=== PATIENT | male | born 1970 | race Caucasian/White ===

== ENCOUNTER 2017-09-23 05:21 | Emergency (ER) | payer OTHER ==
--- OUTSIDE RECORDS SUMMARY | 2017-09-23 05:24 | XMS REPORT | Clinical Summary ---
:1970 Author Organization [facility] Address [address] [place] [address] Phone Care Team Providers Name Role Phone Unavailable Primary Care Provider Unavailable Allergies Active Allergy Reactions Severity Noted Date Comments Beta-Blockers 12/05/2015 Per patient "heart rate (Beta-Adrenergic Blocking drop, lethargic, weak" Agts) Tamsulosin 12/05/2015 "too over power" Butorphanol Tartrate 12/05/2015 "tachycardia" Tramadol 03/20/2016 Tachycardia Current Medications Prescription Sig. Disp. Refills Start Date End Date Status pantoprazole Take 1 tablet (40 30 tablet 0 12/11/2015 Active (PROTONIX) 40 MG mg total) by tablet mouth daily. furosemide (LASIX) Take 20 mg by Active 20 MG tablet mouth daily. potassium chloride Take 20 mEq by Active SA (K-DUR,KLOR-CON) mouth daily . 20 MEQ tablet hydrOXYzine (ATARAX) Take 25 mg by Active 25 MG tablet mouth every night as needed (Sleep). aspirin 81 MG EC Take 1 tablet (81 30 tablet 0 12/11/2015 12/10/2016 tablet mg total) by mouth daily. lisinopril Take 1 tablet 30 tablet 0 12/11/2015 12/10/2016 (PRINIVIL,ZESTRIL) (2.5 mg total) by 2.5 MG tablet mouth daily. metFORMIN Take 1 tablet 60 tablet 0 12/11/2015 12/10/2016 (GLUCOPHAGE) 500 MG (500 mg total) by tablet mouth 2 (two) times daily with breakfast and dinner. clopidogrel (PLAVIX) Take 1 tablet (75 30 tablet 0 12/19/2015 12/18/2016 75 mg tablet mg total) by mouth daily. isosorbide Take 1 tablet (30 30 tablet 1 01/20/2016 01/19/2017 mononitrate (IMDUR) mg total) by 30 MG 24 hr tablet mouth daily. atorvastatin Take 40 mg by 12/11/2015 12/10/2016 (LIPITOR) 80 MG mouth daily. tablet isosorbide Take 1 tablet (30 30 tablet 11 03/31/2016 03/26/2017 mononitrate (IMDUR) mg total) by 30 MG 24 hr tablet mouth daily for 360 days. Active Problems Problem Noted Date Acute chest pain 01/19/2016 Chest pain, unspecified type 12/26/2015 Essential hypertension with goal blood pressure less than 130/80 12/19/2015 GREGORIO on CPAP 12/19/2015 Diastolic dysfunction, Grade 1 12/19/2015 Diabetes mellitus type 2 in obese ([facility]) 12/19/2015 STEMI (ST elevation myocardial infarction) ([facility]) 12/05/2015 Family History Medical History Relation Name Comments Heart disease Father Relation Name Status Comments Father Social History Tobacco Use Types Packs/Day Years Used Date Former Smoker 1 Smokeless Tobacco: Never Used Tobacco Cessation: Counseling Given: Yes Comments: Quit for 1 1/2 years ago Alcohol Use Drinks/Week oz/Week Comments No Sex Assigned at Date Recorded Not on file Last Filed Vital Signs Not on file Plan of Treatment Health Maintenance Due Date Last Done Comments INFLUENZA VACCINE 03/23/2017 Implants Implanted Type Area Permastone Installer Device Expiration Date Model / Identifier Serial / Lot [employer] Implanted: Qty: 1 on 12/05/2015 Results VASCULAR DIAGRAM -SCAN (09/02/2017 2:52 PM)after 09/22/2016
--- OUTSIDE RECORDS SUMMARY | 2017-09-23 05:24 | XMS REPORT | Clinical Summary ---
:1970 Author Organization [facility] Address [address] [place] [address] Care Team Providers Name Role Phone Asked, No Pcp Primary Care Provider Unavailable Allergies Active Allergy Reactions Severity Noted Date Comments Acebutolol Other (See Comments) 07/27/2017 All beta blockers cause bradycardia Atenolol Other (See Comments) 07/27/2017 Bisoprolol Other (See Comments) 07/27/2017 Carvedilol Other (See Comments) 07/27/2017 Meperidine Other (See Comments) 07/27/2017 Patient unsure why documented in mr Trazodone Other (See Comments) 07/27/2017 sweating Tamsulosin Other (See Comments) 07/27/2017 Dilation of eyes and couldn't see Metoprolol Other (See Comments) 07/27/2017 But does take PRN for afib ??? Gabapentin Other (See Comments) 07/27/2017 Flushed and over sedation Propranolol Other (See Comments) 07/27/2017 Quetiapine Other (See Comments) 07/27/2017 akathisia Metaxalone Other (See Comments) 07/27/2017 Flushed and over sedation Butorphanol Tartrate Other (See Comments) 07/27/2017 tachycardia Tramadol Palpitations Low 07/27/2017 Current Medications Prescription Sig. Disp. Refills Start Date End Date Status allopurinol Take 300 mg by Active (ZYLOPRIM) 300 MG mouth daily. tablet aspirin (ECOTRIN) 81 Take 81 mg by Active MG enteric coated mouth daily. tablet atorvastatin Take 40 mg by Active (LIPITOR) 40 MG mouth nightly. tablet clonAZEPAM Take 1 mg by Active (KlonoPIN) 1 MG mouth 2 (two) tablet times a day. docusate sodium Take 100 mg by Active (COLACE) 100 MG mouth 2 (two) capsule times a day. furosemide (LASIX) Take 80 mg by Active 80 mg tablet mouth 2 (two) times a day. HYDROcodone-acetamin Take 1 tablet Active ophen (NORCO) 10-325 by mouth 3 mg per tablet (three) times a day. eplerenone (INSPRA) Take 50 mg by Active 25 MG tablet mouth 2 (two) times a day. clopidogrel (PLAVIX) Take 75 mg by Active 75 mg tablet mouth daily. metOLazone Take 2.5 mg by Active (ZAROXOLYN) 2.5 MG mouth daily as tablet needed. metoprolol tartrate Take 6.25 mg by Active (LOPRESSOR) 25 mg mouth daily as tablet needed (only for afib). nitroglycerin Place 1 spray Active (NITROLINGUAL) 400 under the mcg/spray spray tongue every 5 (five) minutes as needed for chest pain. nitroglycerin Place 0.4 mg Active (NITROSTAT) 0.4 MG under the SL tablet tongue every 5 (five) minutes as needed for chest pain. insulin ASPART Inject 8 Units Active (NovoLOG) 100 under the skin unit/mL injection 3 (three) times a day before meals. pantoprazole Take 40 mg by Active (PROTONIX) 40 MG EC mouth daily. tablet insulin GLARGINE Inject 20 Units Active (LANTUS) 100 unit/mL under the skin injection (vial) nightly. potassium chloride Take 20 mEq by Active (K-DUR,KLOR-CON) 10 mouth 4 (four) MEQ CR tablet times a day. Three tabs QID methocarbamol Take 750 mg by Active (ROBAXIN) 750 MG mouth 2 (two) tablet times a day. ranolazine (RANEXA) Take 500 mg by Active 500 MG 12 hr ER mouth 2 (two) tablet times a day. PARoxetine (PAXIL) Take 30 mg by Discontinued 30 MG tablet mouth every 8 morning. 2 daily PARoxetine (PAXIL) Take 1 tablet 7 tablet 0 07/31/2017 40 MG (40 mg total) 8 tabletIndications: by mouth every Anxiety with morning for 30 Depression days Indications: Anxiety with Depression. desvenlafaxine Take 1 tablet 30 tablet 0 07/31/2017 (PRISTIQ) 50 MG 24 (50 mg total) 8 hr by mouth every tabletIndications: morning for 30 Major Depressive days Disorder Indications: Major Depressive Disorder. Active Problems Problem Noted Date Severe episode of recurrent major depressive disorder, without psychotic 07/27 features Chronic pain syndrome 07/27/2017 Encounters Date Type Specialty Care Team Description 07/27/2017 - Hospital Encounter Psychiatry Melanie Epperson, Severe episode of recurrent major depressive disorder, without psychotic features ( Primary Dx); 07/31/2017 Chronic pain syndrome Bridget Daniel MD after 09/22/2016 Social History Tobacco Use Types Packs/Day Years Used Date Never Assessed Sex Assigned at Date Recorded Not on file Last Filed Vital Signs Vital Sign Reading Time Taken Blood Pressure 125/83 07/31/2017 11:25 AM [employer] Pulse 92 07/31/2017 11:25 AM [employer] Temperature 36.7 C (98.1 F) 07/31/2017 11:25 AM [employer] Respiratory Rate 18 07/31/2017 11:25 AM [employer] Oxygen Saturation 97% 07/31/2017 5:46 AM [employer] Inhaled Oxygen Concentration - - Weight 124 kg (273 lb 9 oz) 07/30/2017 6:34 AM [employer] Height 177.8 cm (5' 10") 07/27/2017 2:16 AM [employer] Body Mass Index 39.25 07/30/2017 6:34 AM [employer] Plan of Treatment Not on file Results POC glucose (07/31/2017 11:31 AM)Only the most recent of18 resultswithin the time period is included. Component Value Ref Range POC glucose 257 (H) 65 - 99 mg/dL Comment: [facility] Notified RN Meter ID: [id number] Service Mechanic: Cas Franklin Specimen Performing Laboratory [facility] DEPARTMENT OF PATHOLOGY AND GENOMIC MEDICINE [address] [place] [id number] ECG 12 lead (07/30/2017 9:06 AM)Only the most recent of2 resultswithin the time period is included. Component Value Ref Range Ventricular rate 78 Atrial rate 78 IL interval 164 QRSD interval 154 QT interval 462 QTC interval 526 P axis 1 7 QRS axis 1 -4 T wave axis 21 EKG impression Normal sinus rhythm-Right bundle branch block-Lateral infarct , age undetermined-Inferior infarct (cited on or before 27-JUL-2017)-Abnormal ECG-In automated comparison with ECG of 27-JUL-2017 08:02,-No significant change was found- Specimen Performing Laboratory [facility] MUSE [address] [place] [id number] Urinalysis screen and microscopy, with reflex to culture (07/28/2017 11:03 AM) Component Value Ref Range Specimen site Clean catch Color, UA Straw Appearance, UA Clear Specific gravity, UA 1.006 1.001 - 1.035 pH, UA 6.0 5.0 - 8.5 Protein, UA Negative Negative Glucose, UA Negative Negative Ketones, UA Negative Negative Bilirubin, UA Negative Negative Blood, UA Negative Negative Nitrite, UA Negative Negative Urobilinogen, UA <2.0 <2.0 Leukocyte esterase, UA Negative Negative WBC, UA None seen 0 - 1 /HPF RBC, UA <1 0 - 1 /HPF Bacteria, UA None seen None seen Yeast, UA None seen Yeast with pseudohyphae, UA None seen Specimen Performing Laboratory Urine [facility] DEPARTMENT OF PATHOLOGY AND GENOMIC MEDICINE [address] [place] [id number] Urine culture (07/28/2017 11:03 AM) Component Value Ref Range Urine culture SEE COMMENTComment: Bacteriuria screen negative. Specimen Performing Laboratory [facility] DEPARTMENT OF PATHOLOGY AND GENOMIC MEDICINE [address] [place] [id number] Estimated GFR (07/28/2017 4:30 AM)Only the most recent of2 resultswithin the time period is included. Component Value Ref Range GFR Non Af Amer 80 mL/min/1.73 m2 GFR Af Amer >90 mL/min/1.73 m2 Comment: Chronic kidney disease: <60 mL/min/1.73m2 Kidney failure: <15 mL/min/1.73m2 The estimated GFR is calculated from the IDMS-traceable Modification of Diet in Renal Disease Equation. The accuracy of the calculation is poor when the creatinine is normal. Calculated values >90 mL/min/1.73m2 are not reported. This equation has not been validated in children (<18 years), women, the elderly (>70 years), or ethnic groups other than Caucasians and Americans. Specimen Performing Laboratory Plasma specimen [facility] DEPARTMENT OF PATHOLOGY AND GENOMIC MEDICINE [address] [place] [id number] Thyroid stimulating hormone (07/28/2017 4:30 AM) Component Value Ref Range TSH 1.10 0.27 - 4.20 uIU/mL Specimen Performing Laboratory Plasma specimen [facility] DEPARTMENT OF PATHOLOGY AND [address] [address] T4, free (07/28/2017 4:30 AM) Component Value Ref Range T4, free 1.1 0.9 - 1.7 ng/dL Specimen Performing Laboratory Plasma specimen [facility] DEPARTMENT PATHOLOGY AND [address] [address] Basic metabolic panel (07/28/2017 4:30 AM)Only the most recent of2 resultswithin the time period is included. Component Value Ref Range Sodium 139 135 - 148 mEq/L Potassium 3.7 3.5 - 5.0 mEq/L Chloride 98 98 - 112 mEq/L CO2 28 24 - 31 mEq/L Anion gap 13 7 - 15 mEq/L Comment: Starting from September , anion gap calculation no longer incorporates potassium. Please note the change. BUN 12 6 - 20 mg/dL Creatinine 1.0 0.7 - 1.2 mg/dL Glucose 149 (H) 65 - 99 mg/dL Calcium 9.5 8.3 - 10.2 mg/dL Specimen Performing Laboratory Plasma specimen [facility] DEPARTMENT PATHOLOGY AND [address] [address] Hemoglobin A1c (07/27/2017 6:20 AM) Component Value Ref Range Hemoglobin A1C 7.5 (H) 4.0 - 5.6 % Comment: HbA1c cutoffs for diagnosing diabetes: 4.0% - 5.6%=normal 5.7% - 6.4%=increased risk for diabetes (prediabetes) >=6.5%=diabetes Goals for glycemic control (ADA 2016) < 7.0%Target for non adults with diabetes. More or less stringent targets may be appropriate for individual patients. <7.5% Target for Children and adolescents with type 1 diabetes. Specimen Performing Laboratory Blood [facility] PATHOLOGY AND [facility] MEDICINE [address] [place] [id number] Hepatic function panel (07/27/2017 6:20 AM) Component Value Ref Range Albumin 3.1 (L) 3.5 - 5.0 g/dL Total bilirubin 0.6 0.0 - 1.2 mg/dL Bilirubin direct <0.2 0.0 - 0.3 mg/dL Alkaline phosphatase 113 40 - 129 U/L Protein 7.7 6.3 - 8.3 g/dL Comment: [place] 4.6-7.0 g/dL 1 week 4.4-7.6 g/dL 7 months-1year5.1-7.3 g/dL 1-2 years5.6-7.5 g/dL >3 years6.0-8.0 g/dL 18-150 6.3-8.3 g/dL ALT 29 5 - 50 U/L AST 31 10 - 50 U/L Specimen Performing Laboratory Plasma specimen [facility] DEPARTMENT OF PATHOLOGY AND GENOMIC MEDICINE [address] [place] [address] Lipid panel (07/27/2017 6:20 AM) Component Value Ref Range Cholesterol 172 <200 mg/dL Triglycerides 242 (H) <150 mg/dL HDL cholesterol 33 (L) >40 mg/dL LDL cholesterol 110 (H)Comment: Result obtained by direct <100 mg/dL LDL measurement Lipid panel interpretation SeeBelow Comment: Total Cholesterol (mg/dL) <200 Desirable [id number] >=240High Triglycerides (mg/dL) <150 Normal [id number] 200-499High >=500Very high HDL Cholesterol (mg/dL) <40Low (male) <40Low (female) LDL Cholesterol (mg/dL) <100 Optimal 100-129Near or above optimal [id number] 160-189High >=190Very high Risk Catergories that modify LDL goals. Risk CatergoriesLDL goal (mg/dL) CHD and CHD risk equivalent<100 (10-year risk >20%) Multiple (2+) risk factors <130 (10-year risk=<20%) 0-1 risk factors <160 (<10-year risk) Defining levels of lipids in metabolic syndrome Triglycerides>=150 mg/dL HDL Cholesterol Men<40 mg/dL Women<40 mg/dL Non-HDL cholesterol is a second target for therapy in persons with high triglycerides (>=200 mg/dL) Specimen Performing Laboratory Plasma specimen [facility] DEPARTMENT OF PATHOLOGY AND GENOMIC MEDICINE [address] [place] [address] after 09/22/2016
[2017-09-23 06:52] LABS: Absolute Lymphocytes (CBC) 2.1 K/uL (0.7-4.9); Absolute Monocytes 0.9 K/uL (0.1-1.3); Absolute Neutrophil 8.2 K/uL (1.8-8.0); Basophils % 0.6 % (0-1.3); Eosinophils % 1.5 % (0-4.4); Hematocrit 41.1 % (39.6-49.0); Lymphocytes % 18.7 % (15.3-44.8); MCH 26.4 pg (27.0-35.0); MCV 78.1 fL (80-100); MPV 7.6 fL (7.6-11.3); Monocytes % 7.5 % (3.3-12.3); RBC Red Blood Cell Count 5.27 M/uL (4.33-5.43)
[2017-09-23 06:58] LABS: Protime INR 0.97
[2017-09-23 07:06] LABS: Bicarbonate 28 mEq/L (21-31); Glucose Level 229 mg/dL (65-120); Potassium 4.7 mEq/L (3.6-5.0); Sodium Level 131 mEq/L (135-145)
[2017-09-23 07:12] LABS: ALT/SGPT 25 IU/L (10-60); AST/SGOT 22 IU/L (10-42); Albumin 3.7 g/dL (3.2-5.5); Alkaline Phosphatase 119 IU/L (42-121); BUN Blood Urea Nitrogen 22 mg/dL (6-20); Bilirubin Direct 0.1 mg/dL (0-0.2); Bilirubin Total 0.6 mg/dL (0.3-1.2); Protein, Total 7.8 g/dL (6.0-8.3)
[2017-09-23 07:14] LABS: Alcohol Serum/Plasma < 10 mg/dl; Salicylates Level < 4.0 mg/dl (<30)
[2017-09-23 07:18] LABS: Barbiturates NEGATIVE; Benzodiazepines NEGATIVE; Cocaine NEGATIVE; METHAMPHETAM NEGATIVE; Opiates NEGATIVE; Phencyclidine NEGATIVE; THC Cannibis NEGATIVE
--- NOTE | 2017-09-23 07:37 | EDPHYS ---
Physician Documentation [facility] Name: Marquis Nelson Age: 47 yrs Sex: Male : 1970 Arrival Date: 09/23/2017 Time: 05:22 Bed 8 Private MD: ED Physician Floyd Urban HPI: 09/23 06:36 This 47 yrs old Male presents to ER via Ambulatory with complaints of Anxiety.cp 06:36 Onset: The symptoms/episode began/occurred this morning. Associated signs and symptoms: cp Pertinent negatives: abdominal pain, chest pain, cough, fever, vomiting. Historical: - Allergies: 05:41 Beta Blockers (sensitive/hypotension); bb 05:41 Demerol; bb 05:41 Flomax; bb 05:41 Neurontin; bb 05:41 Skelaxin; bb 05:41 Stadol; bb 05:41 tramadol; bb - Home Meds: 05:41 allopurinol 300 mg Oral tab 1 tab once daily [Active]; amlodipine 5 mg tab 1 tab once bb daily [Active]; Aspir-81 81 mg Oral TbEC 1 tab once daily [Active]; atorvastatin 40 mg Oral tab 1 tab once daily [Active]; clonazepam 1 mg Oral TbDL 2 times per day [Active]; docusate sodium 100 mg Oral tab 2 times per day [Active]; furosemide 80 mg Oral tab 2 times per day [Active]; Inspra 50 mg Oral tab 1 tab 2 times per day [Active]; Levaquin 500 mg Oral tab once daily [Active]; metolazone 2.5 mg Oral tab [Active]; metoprolol succinate 6.25mg Oral Tb24 [Active]; Nitrostat SL [Active]; Novolog Sub-Q [Active]; pantoprazole Oral [Active]; Plavix 75 mg Oral tab 1 tab once daily [Active]; Potassium Chloride 60MEQ Oral 3 times per day [Active]; Ranexa 500 mg Oral Tb12 2 times per day [Active]; Robaxin Oral [Active]; Suboxone 8-2 mg sublingual film 1 film once daily [Active]; - PMHx: 05:41 AAA; Anemia; Anxiety; Atrial Fib; CHF; GERD; High Cholesterol; Hypertension; Kidney bb stones; Myocardial infarction; R BUNDLE BRANCH BLOCK; Sleep Apnea; - Immunization history:: Adult Immunizations up to date. - Social history:: Smoking status: Patient/guardian denies using tobacco, Patient/guardian denies using alcohol. ROS: 06:40 Constitutional: Negative for body aches, chills, fever, poor PO intake. cp 06:40 Eyes: Negative for injury, pain, redness, and discharge. cp 06:40 ENT: Negative for drainage from ear(s), ear pain, sore throat, difficulty swallowing, difficulty handling secretions. 06:40 Cardiovascular: Negative for chest pain, edema, palpitations. 06:40 Respiratory: Negative for cough, shortness of breath, wheezing. 06:40 Abdomen/GI: Negative for abdominal pain, nausea, vomiting, and diarrhea, constipation, black/tarry stool, rectal bleeding. 06:40 Back: Negative for pain at rest, pain with movement, radiated pain. 06:40 Neuro: Negative for altered mental status, dizziness, headache, seizure activity, syncope, near syncope, weakness. 06:40 Psych: Positive for anxiety, Negative for auditory hallucinations, visual hallucinations, homicidal ideation, suicide gesture, suicidal ideation. 06:40 All other systems are negative. Exam: 06:48 Constitutional: The patient appears in no acute distress, alert, awake, cp non-diaphoretic, non-toxic, well developed, well nourished, obese. 06:48 Head/Face: Normocephalic, atraumatic. Eyes: Pupils equal round and reactive to light, cp extra-ocular motions intact. Lids and lashes normal. Conjunctiva and sclera are non-icteric and not injected. Cornea within normal limits. Periorbital areas with no swelling, redness, or edema. ENT: Nares patent. No nasal discharge, no septal abnormalities noted. Tympanic membranes are normal and external auditory canals are clear. Oropharynx with no redness, swelling, or masses, exudates, or evidence of obstruction, uvula midline. Mucous membranes moist. Neck: Trachea midline, no thyromegaly or masses palpated, and no cervical lymphadenopathy. Supple, full range of motion without nuchal rigidity, or vertebral point tenderness. No Meningismus. Chest/axilla: Normal chest wall appearance and motion. Nontender with no deformity. No lesions are appreciated. 06:48 Cardiovascular: Rate: normal, Rhythm: regular, Pulses: Pulses are 2+ in right radial artery and left radial artery. Edema: is not appreciated, JVD: is not appreciated. 06:48 Respiratory: the patient does not display signs of respiratory distress, Respirations: normal, no use of accessory muscles, no retractions, no splinting, no tachypnea, labored breathing, is not present, Breath sounds: are clear throughout, no decreased breath sounds, no stridor, no wheezing. 06:48 Abdomen/GI: Inspection: obese Bowel sounds: active, all quadrants, Palpation: abdomen is soft and non-tender, in all quadrants, rebound tenderness, is not appreciated, voluntary guarding, is not appreciated, involuntary guarding, is not appreciated. 06:48 Back: pain, is absent, ROM is normal. 06:48 Skin: cellulitis, is not appreciated, no rash present. 06:48 Neuro: Orientation: to person, place \T\ time. Mentation: is normal, Cerebellar function: is grossly normal, Motor: moves all fours, strength is normal, Sensation: is normal. 06:53 ECG was reviewed by the Attending Physician. cp Vital Signs: 05:41 BP 143 / 87; Pulse 84; Resp 20 S; Temp 97.7(O); Pulse Ox 95% on R/A; Weight 129.27 kg bb (R); Height 5 ft. 10 in. (177.80 cm) (R); Pain 0/10; 06:56 BP 131 / 69; Pulse 77; Resp 18 S; Pulse Ox 95% on R/A; Pain 0/10; bb 07:33 BP 126 / 72; Pulse 67; Resp 15; Pulse Ox 100% on R/A; Pain 0/10; hb 05:41 Body Mass Index 40.89 (129.27 kg, 177.80 cm) bb MDM: 06:28 Patient medically screened. cp 07:35 Data reviewed: vital signs, nurses notes, lab test result(s), EKG, and as a result, I cp will discharge patient. 07:35 Test interpretation: by ED physician or midlevel provider: ECG. Counseling: I had a cp detailed discussion with the patient and/or guardian regarding: the historical points, exam findings, and any diagnostic results supporting the discharge/admit diagnosis, lab results, the need for outpatient follow up, a family practitioner. 09/23 06:20 Order name: Acetaminophen; Complete Time: 07:23 cp 09/23 07:34 Interpretation: ACETA < 10.0; Reviewed. cp 09/23 06:20 Order name: Basic Metabolic Panel; Complete Time: 07:15 cp 09/23 07:15 Interpretation: Normal except: NA 131; CL 95; GLUC 229; BUN 22; CRE 1.27; GFR 61. cp 09/23 06:20 Order name: CBC with Diff; Complete Time: 06:57 cp 09/23 06:57 Interpretation: Normal except: WBC 11.4; MCV 78.1; MCH 26.4; RDW 16.1; NEUT A 8.2. cp 04 06:20 Order name: ETOH Level; Complete Time: 07:23 cp 09/23 06:20 Order name: Hepatic Function; Complete Time: 07:15 cp 09/23 07:15 Interpretation: Normal except: GLOB 4.1; A/G 0.9. cp 04 06:20 Order name: PT-INR; Complete Time: 07:15 cp 09/23 06:20 Order name: Ptt, Activated; Complete Time: 07:15 cp 09/23 06:20 Order name: Salicylate; Complete Time: 07:23 cp 09/23 06:20 Order name: Urine Drug Screen; Complete Time: 07:23 cp 09/23 07:24 Interpretation: Reviewed. cp 09/23 06:20 Order name: EKG; Complete Time: 06:20 cp 09/23 06:20 Order name: EKG - Nurse/Tech; Complete Time: 06:53 cp 09/23 06:43 Order name: Urine Dipstick--Ancillary (enter results) em1 09/23 06:20 Order name: IV Saline Lock; Complete Time: 06:53 cp 09/23 06:20 Order name: Labs collected and sent; Complete Time: 06:53 cp 09/23 06:20 Order name: Urine Dipstick-Ancillary (obtain specimen); Complete Time: 06:41 cp EC:53 Rate is 68 beats/min. Rhythm is regular. [place] interval is normal. QRS interval is normal. cp QT interval is normal. T waves are Inverted in leads III, V2, V3. No ST changes noted. Interpreted by me. Reviewed by me. Administered Medications: 07:32 Drug: NS 0.9% 500 ml Route: IV; Rate: bolus; Site: right antecubital; hb 07:32 Drug: Benadryl 25 mg Route: IVP; Site: right antecubital; Disposition: 13:20 Co-signature as Attending Physician, Floyd Urban MD. Disposition: 09/23/17 07:36 Discharged to Home. Impression: Anxiety disorder, unspecified. - Condition is Stable. - Discharge Instructions: Panic Attacks, Generalized Anxiety Disorder. - Prescriptions for Vistaril 50 mg Oral capsule - take 1 capsule by ORAL route 4 times per day As needed as needed for anxiety; 30 capsule. - Medication Reconciliation Form, Thank You Letter, Antibiotic Education, Prescription Opioid Use form. - Follow up: Private Physician; When: Today; Reason: Recheck today's complaints. - Problem is chronic. - Symptoms are unchanged. Signatures: Dispatcher [employer] Linnea Yanez, RN RN Jose Francois PA PA cp Baxter, Heather, NAVJOT MORFIN Floyd Urban MD MD
--- NOTE | 2017-09-23 07:37 | ER ---
Nurse's Notes [facility] Name: Marquis Nelson Age: 47 yrs Sex: Male : 1970 Arrival Date: 09/23/2017 Time: 05:22 Bed 8 Private MD: Diagnosis: Anxiety disorder, unspecified Presentation: 09/23 05:34 Presenting complaint: Patient states: he is having a panic attack since approx 0200 bb this morning, feels edgy, fearful, shaky tried meditation but it didn't work and he is out of his Klonopin. Transition of care: patient was not received from another setting of care. Onset of symptoms was September 23, 2017 at 02:00. Care prior to arrival: None. 05:34 Method Of Arrival: Ambulatory bb 05:34 Acuity: THANH 5 bb Triage Assessment: 05:41 General: Appears in no apparent distress. uncomfortable, obese, Behavior is bb cooperative, anxious. Pain: Denies pain. Neuro: Level of Consciousness is awake, alert, obeys commands, Oriented to person, place, time, situation. Cardiovascular: No deficits noted. Respiratory: Respiratory effort is even, unlabored. Derm: Musculoskeletal: Circulation, motion, and sensation intact. Historical: - Allergies: 05:41 Beta Blockers (sensitive/hypotension); bb 05:41 Demerol; bb 05:41 Flomax; bb 05:41 Neurontin; bb 05:41 Skelaxin; bb 05:41 Stadol; bb 05:41 tramadol; bb - Home Meds: 05:41 allopurinol 300 mg Oral tab 1 tab once daily [Active]; amlodipine 5 mg tab 1 tab once bb daily [Active]; Aspir-81 81 mg Oral TbEC 1 tab once daily [Active]; atorvastatin 40 mg Oral tab 1 tab once daily [Active]; clonazepam 1 mg Oral TbDL 2 times per day [Active]; docusate sodium 100 mg Oral tab 2 times per day [Active]; furosemide 80 mg Oral tab 2 times per day [Active]; Inspra 50 mg Oral tab 1 tab 2 times per day [Active]; Levaquin 500 mg Oral tab once daily [Active]; metolazone 2.5 mg Oral tab [Active]; metoprolol succinate 6.25mg Oral Tb24 [Active]; Nitrostat SL [Active]; Novolog Sub-Q [Active]; pantoprazole Oral [Active]; Plavix 75 mg Oral tab 1 tab once daily [Active]; Potassium Chloride 60MEQ Oral 3 times per day [Active]; Ranexa 500 mg Oral Tb12 2 times per day [Active]; Robaxin Oral [Active]; Suboxone 8-2 mg sublingual film 1 film once daily [Active]; - PMHx: 05:41 AAA; Anemia; Anxiety; Atrial Fib; CHF; GERD; High Cholesterol; Hypertension; Kidney bb stones; Myocardial infarction; R BUNDLE BRANCH BLOCK; Sleep Apnea; - Immunization history:: Adult Immunizations up to date. - Social history:: Smoking status: Patient/guardian denies using tobacco, Patient/guardian denies using alcohol. Screenin:44 Abuse screen: Denies threats or abuse. Nutritional screening: No deficits noted. bb Tuberculosis screening: No symptoms or risk factors identified. Fall Risk None identified. Assessment: 05:30 General: Appears in no apparent distress. comfortable, Behavior is calm, cooperative, aa1 appropriate for age. Pain: Denies pain. Neuro: Level of Consciousness is awake, alert, obeys commands, Oriented to person, place, time, situation, Moves all extremities. Full function Gait is steady, Speech is normal. Neuro: Reports "jittery" feeling and feels anxious. Cardiovascular: Denies chest pain, palpitations. Respiratory: Airway is patent Respiratory effort is even, unlabored, Respiratory pattern is regular, symmetrical. GI: No signs and/or symptoms were reported involving the gastrointestinal system. : No signs and/or symptoms were reported regarding the genitourinary system. EENT: No signs and/or symptoms were reported regarding the EENT system. Derm: Skin is intact, is healthy with good turgor, Skin is pink, warm \\T\\ dry. 06:10 Reassessment: Patient appears in no apparent distress at this time. Patient and/or aa1 family updated on plan of care and expected duration. Pain level reassessed. Patient is alert, oriented x 3, equal unlabored respirations, skin warm/dry/pink. Pt continues to await initial assessment by provider. 06:53 Reassessment: Patient and/or family updated on plan of care and expected duration. Pain bb level reassessed. Patient is alert, oriented x 3, equal unlabored respirations, skin warm/dry/pink. pt resting quietly, no complaints, spouse at bedside. 07:30 Reassessment: Patient appears in no apparent distress at this time. Patient and/or hb family updated on plan of care and expected duration. Pain level reassessed. Patient is alert, oriented x 3, equal unlabored respirations, skin warm/dry/pink. Patient denies pain at this time. Patient states symptoms have improved. Vital Signs: 05:41 BP 143 / 87; Pulse 84; Resp 20 S; Temp 97.7(O); Pulse Ox 95% on R/A; Weight 129.27 kg bb (R); Height 5 ft. 10 in. (177.80 cm) (R); Pain 0/10; 06:56 BP 131 / 69; Pulse 77; Resp 18 S; Pulse Ox 95% on R/A; Pain 0/10; bb 07:33 BP 126 / 72; Pulse 67; Resp 15; Pulse Ox 100% on R/A; Pain 0/10; hb 05:41 Body Mass Index 40.89 (129.27 kg, 177.80 cm) ED Course: 05:22 Patient arrived in ED. es 05:35 Triage completed. bb 05:41 Arm band placed on Patient placed in an exam room, on a stretcher. Family accompanied bb patient. 05:44 Patient has correct armband on for positive identification. Bed in low position. Call bb light in reach. Side rails up X 1. Adult w/ patient. Pulse ox on. NIBP on. 06:28 [facility]. cp 06:28 Floyd Urban MD is Attending Physician. cp 06:30 Urine collected: clean catch specimen, clear. bb 06:40 Initial lab(s) drawn, by nj, sent to lab. Inserted saline lock: 22 gauge in right bb antecubital area, using aseptic technique. Blood collected. 06:52 EKG done, by ED staff, reviewed by Jose MÁRQUEZ. bb 07:06 Report given to Roxann MORFIN. bb 07:50 Roxann Byrnes, RN is Primary Nurse. hb Administered Medications: 07:32 Drug: NS 0.9% 500 ml Route: IV; Rate: bolus; Site: right antecubital; hb 07:32 Drug: Benadryl 25 mg Route: IVP; Site: right antecubital; hb Outcome: 07:36 Discharge ordered by . nikki 08:02 Patient left the ED. hb Signatures: Sussy Benavidez RN RN aa1 Danni Max Brenda RN RN bb Jose Wilson PA PA cp Baxter, Heather, RN RN hb
[2017-09-23] MEDS ORDERED: NA CHLORIDE 0.9% 1,000 ML ONE (07:48)
[2017-09-23] MEDS ORDERED: DIPHENHYDRAMINE 50 MG/ML VIAL ONE (07:48)
[2017-09-23 08:15] VITALS: TEMP 97.7
[2017-09-23 08:16] VITALS: BP 126/72; O2SAT 100
[2017-09-23 09:36] LABS: Urine Blood NEGATIVE (NEG); Urine Glucose NEGATIVE (NEG); Urine Protein NEGATIVE (NEG); Urine Specific Gravity 1.015 (1.005-1.030)
--- NOTE | 2017-09-24 07:39 | EKG ---
Test Date: 2017-09-23 Test Time: 06:48:55 [employer] Workman: WENDY MEASUREMENT RESULTS: Intervals: Rate: 68 AR: 170 QRSD: 144 QT: 418 QTc: 444 [place]: P: 10 AR: 170 QRS: -9 T: 4 INTERPRETIVE STATEMENTS: Normal sinus rhythm Right bundle branch block Inferior infarct, age undetermined Abnormal ECG Compared to ECG 08/21/2017 01:50:56 No significant changes Electronically Signed On 09-24-17 07:35:19 CDT by Ole Tesfaye
== END 2017-09-23 08:02 | disposition home or self-care (01) ==
LOC: ER 05:21
DX: F41.9 Anxiety disorder, unspecified (principal); I10 Essential (primary) hypertension; E78.00 Pure hypercholesterolemia, unspecified; I48.91 Unspecified atrial fibrillation; I25.2 Old myocardial infarction; I50.9 Heart failure, unspecified; Z79.01 Long term (current) use of anticoagulants; Z79.82 Long term (current) use of aspirin; Z88.5 Allergy status to narcotic agent; Z88.6 Allergy status to analgesic agent; Z88.8 Allergy status to other drugs, medicaments and biological substances
CPT/HCPCS: 36415; 80048; 80076; 80307; 80320; 80329; 81003; 85025; 85610; 85730; 93005; 96374; 99284; J7030

== ENCOUNTER 2017-11-29 18:34 | Emergency (ER) | payer OTHER ==
--- OUTSIDE RECORDS SUMMARY | 2017-11-29 18:36 | XMS REPORT | Clinical Summary ---
:1970 Author Organization [facility] Address [address] [place] [address] Care Team Providers Name Role Phone Asked, [...] Chronic pain syndrome Bridget Daniel MD after 11/28/2016 Social History Tobacco Use Types Packs/Day Years Used Date Never Assessed Sex Assigned at Date Recorded Not on file Last Filed Vital Signs Vital Sign Reading Time Taken Blood Pressure 125/83 07/31/2017 11:25 AM [employer] Pulse 92 07/31/2017 11:25 AM [employer] Temperature 36.7 C (98.1 F) 07/31/2017 11:25 AM [employer] Respiratory Rate 18 07/31/2017 11:25 AM [employer] Oxygen Saturation 97% 07/31/2017 5:46 AM [employer] Inhaled Oxygen Concentration - - Weight 124 kg (273 lb 9 oz) 07/30/2017 6:34 AM [employer] Height 177.8 cm (5' 10") 07/27/2017 2:16 AM [employer] Body Mass Index 39.25 07/30/2017 6:34 AM [employer] Plan of Treatment Not on file Results POC glucose (07/31/2017 11:31 AM)Only the most recent of18 resultswithin the time period is included. Component Value Ref Range POC glucose 257 (H) 65 - 99 mg/dL Comment: [facility] Notified RN Meter ID: [id number] Acupuncturist: Cas Franklin Specimen Performing Laboratory [facility] DEPARTMENT OF PATHOLOGY AND GENOMIC MEDICINE [address] [place] [id number] ECG 12 lead (07/30/2017 9:06 AM)Only the most recent of2 resultswithin the time period is included. Component Value Ref Range Ventricular rate 78 Atrial rate 78 NJ interval 164 QRSD interval 154 QT interval 462 QTC interval 526 P axis 1 7 QRS axis 1 -4 T wave axis 21 EKG impression Normal sinus rhythm-Right bundle branch block-Lateral infarct , age undetermined-Inferior infarct (cited on or before 27-JUL-2017)-Abnormal ECG-In automated comparison with ECG of 27-JUL-2017 08:02,-No significant change was found- Specimen Performing Laboratory [facility] MUSE [address] [place] [id number] Urinalysis screen and microscopy, with reflex to [...] UA None seen Specimen Performing Laboratory Urine [facility] DEPARTMENT OF PATHOLOGY AND GENOMIC MEDICINE [address] [place] [id number] Urine culture (07/28/2017 11:03 AM) Component Value Ref Range Urine culture SEE COMMENTComment: Bacteriuria screen negative. Specimen Performing Laboratory [facility] DEPARTMENT OF PATHOLOGY AND GENOMIC MEDICINE [address] [place] [id number] Estimated GFR (07/28/2017 4:30 AM)Only the most [...] and Americans. Specimen Performing Laboratory Plasma specimen [facility] DEPARTMENT OF PATHOLOGY AND GENOMIC MEDICINE [address] [place] [id number] Thyroid stimulating hormone (07/28/2017 4:30 AM) Component Value Ref Range TSH 1.10 0.27 - 4.20 uIU/mL Specimen Performing Laboratory Plasma specimen [facility] DEPARTMENT OF PATHOLOGY AND [address] [address] T4, free (07/28/2017 4:30 AM) Component Value Ref Range T4, free 1.1 0.9 - 1.7 ng/dL Specimen Performing Laboratory Plasma specimen [facility] DEPARTMENT OF PATHOLOGY AND [address] [address] Basic metabolic panel (07/28/2017 4:30 AM)Only the [...] 10.2 mg/dL Specimen Performing Laboratory Plasma specimen [facility] DEPARTMENT OF PATHOLOGY AND [facility] MEDICINE [address] [place] [address] Hemoglobin A1c (07/27/2017 6:20 AM) Component Value [...] type 1 diabetes. Specimen Performing Laboratory Blood [facility] PATHOLOGY AND [address] [address] Hepatic function panel (07/27/2017 6:20 AM) Component Value Ref Range Albumin 3.1 (L) 3.5 - 5.0 g/dL Total bilirubin 0.6 0.0 - 1.2 mg/dL Bilirubin direct <0.2 0.0 - 0.3 mg/dL Alkaline phosphatase 113 40 - 129 U/L Protein 7.7 6.3 - 8.3 g/dL Comment: 4.6-7.0 g/dL 1 week 4.4-7.6 g/dL 7 months-1year5.1-7.3 g/dL 1-2 years5.6-7.5 g/dL >3 years6.0-8.0 g/dL 18-150 6.3-8.3 g/dL ALT 29 5 - 50 U/L AST 31 10 - 50 U/L Specimen Performing Laboratory Plasma specimen [facility] DEPARTMENT OF PATHOLOGY AND GENOMIC MEDICINE [address] [place] [id number] Lipid panel (07/27/2017 6:20 AM) Component Value Ref Range Cholesterol 172 <200 mg/dL Triglycerides 242 (H) <150 mg/dL HDL cholesterol 33 (L) >40 mg/dL LDL cholesterol 110 (H)Comment: Result obtained by direct LDL <100 mg/dL measurement Lipid panel interpretation SeeBelow Comment: Total Cholesterol (mg/dL) <200 Desirable [id number]-pqrp >=240High Triglycerides (mg/dL) <150 Normal [id number]-[id number] 200-499High >=500Very high HDL Cholesterol (mg/dL) <40Low (male) <40Low (female) LDL Cholesterol (mg/dL) <100 Optimal 100-129Near or above optimal [phone]-hmas 160-189High >=190Very high Risk Catergories that modify [...] (>=200 mg/dL) Specimen Performing Laboratory Plasma specimen [facility] DEPARTMENT OF PATHOLOGY AND GENOMIC MEDICINE [address] [place] [address] after 11/28/2016
--- OUTSIDE RECORDS SUMMARY | 2017-11-29 18:36 | XMS REPORT | Clinical Summary ---
:1970 Author Organization [facility] Address [address] [place] [address] Phone Care Team Providers Name Role Phone [...] 12/19/2015 Diabetes mellitus type 2 in obese ([facility]) 12/19/2015 STEMI (ST elevation myocardial infarction) ([facility]) 12/05/2015 Family History Medical History Relation Name [...] Due Date Last Done Comments INFLUENZA VACCINE 03/23/2018 Implants Implanted Type Area Lithographic Stripper Device Expiration Date Model / Identifier Serial / Lot [employer] Implanted: Qty: 1 on 12/05/2015 Results VASCULAR DIAGRAM -SCAN (09/02/2017 2:52 PM)after 11/28/2016
--- NOTE | 2017-11-29 19:27 | RAD REPORT ---
EXAM DESCRIPTION: CT - Stone Protocol - 11/29/2017 7:17 pm CLINICAL HISTORY: Flank pain. COMPARISON: None. TECHNIQUE: Axial images were obtained without oral or IV contrast. Lack of contrast limits solid org an and vascular assessment. The [id number] spans the entirety of the system partially obscuring uppermost abdomen and lung bases. Coronal reformatted images were obtained and reviewed. All CT scans are performed using dose optimization technique as appropriate and may include automated exposure control or mA/KV adjustment according to patient size. FINDINGS: The lower lung pizarro are clear. Imaged portions of the liver and spleen show no suspicious findings on non-contrast imaging. The panc reas and adrenal glands are normal. No pathologic lymphadenopathy in the abdomen or pelvis. Ectasia o f the infrarenal abdominal aorta to 3 mm noted. No urinary tract stones or obstructive uropathy. No bowel obstruction, free air, free fluid or abscess. Normal appendix noted.Mild colonic diverticulo sis. No significant bony abnormality. IMPRESSION: No urinary tract stones or obstructive uropathy.
[2017-11-29] MEDS ORDERED: NA CHLORIDE 0.9% 1,000 ML ONE (19:29)
[2017-11-29 19:46] LABS: Absolute Lymphocytes (CBC) 1.7 K/uL (0.7-4.9); Absolute Monocytes 0.8 K/uL (0.1-1.3); Absolute Neutrophil 8.3 K/uL (1.8-8.0); Basophils % 0.6 % (0-1.3); Eosinophils % 1.4 % (0-4.4); Hematocrit 36.2 % (39.6-49.0); Lymphocytes % 15.2 % (15.3-44.8); MCH 25.8 pg (27.0-35.0); MCV 76.2 fL (80-100); MPV 7.7 fL (7.6-11.3); Monocytes % 7.6 % (3.3-12.3); RBC Red Blood Cell Count 4.75 M/uL (4.33-5.43)
[2017-11-29] MEDS ORDERED: METOCLOPRAMIDE 10 MG/2mL INJ ONE (19:48)
[2017-11-29] MEDS ORDERED: MORPHINE 4 MG/ML SYR ONE (19:48)
[2017-11-29] MEDS ORDERED: DIPHENHYDRAMINE 50 MG/ML VIAL ONE (19:49)
[2017-11-29 20:32] LABS: Urine Blood 2+ (NEG); Urine Glucose NEGATIVE (NEG); Urine Protein NEGATIVE (NEG)
[2017-11-29 20:37] LABS: Urine Bacteria <20 /HPF (NONE SEEN); Urine Culture Reflex Order NOT NEEDED
--- NOTE | 2017-11-29 20:49 | ER ---
Nurse's Notes [facility] Name: Marquis Nelson Age: 47 yrs Sex: Male : 1970 Arrival Date: 11/29/2017 Time: 18:36 Bed 26 Private MD: Diagnosis: Right Flank Pain Presentation: 11/29 18:48 Presenting complaint: Patient states: Right flank pain that radiates to the abdomen for aj1 the past 2 days. Reports nausea, trouble urinating. denies vomiting diarrhea, fever. Transition of care: patient was not received from another setting of care. Onset of symptoms was November 27, 2017. Risk Assessment: Do you want to hurt yourself or someone else? Patient reports no desire to harm self or others. Initial Sepsis Screen: Does the patient meet any 2 criteria? No. Patient's initial sepsis screen is negative. Does the patient have a suspected source of infection?. Care prior to arrival: None. 18:48 Method Of Arrival: Ambulatory aj1 18:48 Acuity: THANH 3 aj1 Triage Assessment: 18:54 General: Appears uncomfortable, Behavior is calm, cooperative, appropriate for age. aj1 Pain: Pain currently is 9 out of 10 on a pain scale. GI: Abdomen is non-distended. 19:00 Neuro: No deficits noted. Level of Consciousness is Oriented to person, place, time, rk2 situation. 19:00 Respiratory: Airway is patent Respiratory effort is even, unlabored, Respiratory rk2 pattern is regular, symmetrical. Derm: Skin is pink, warm \T\ dry. Historical: - Allergies: 18:54 Beta Blockers (sensitive/hypotension); aj1 18:54 Flomax; aj1 18:54 Neurontin; aj1 18:54 Skelaxin; aj1 18:54 Stadol; aj1 18:54 tramadol; aj1 - Home Meds: 18:54 allopurinol 300 mg Oral tab 1 tab once daily [Active]; amlodipine 5 mg tab 1 tab once aj1 daily [Active]; Eliquis 5 mg oral tab 1 tab 2 times per day [Active]; atorvastatin 40 mg Oral tab 1 tab once daily [Active]; clonazepam 1 mg Oral TbDL 2 times per day [Active]; docusate sodium 100 mg Oral tab 2 times per day [Active]; furosemide 80 mg Oral tab 2 times per day [Active]; Inspra 50 mg Oral tab 1 tab 2 times per day [Active]; metolazone 2.5 mg Oral tab as needed [Active]; metoprolol succinate 6.25mg Oral Tb24 as needed [Active]; Nitrostat SL as needed [Active]; Novolog Sub-Q [Active]; pantoprazole Oral [Active]; Plavix 75 mg Oral tab 1 tab once daily [Active]; Potassium Chloride 60MEQ Oral 3 times per day [Active]; Ranexa 1,000 mg oral Tb12 [Active]; Robaxin Oral [Active]; - PMHx: 18:54 AAA; Anemia; Anxiety; Atrial Fib; CHF; GERD; High Cholesterol; Hypertension; Kidney aj1 stones; Myocardial infarction; R BUNDLE BRANCH BLOCK; Sleep Apnea; pulmonary embolism; - PSHx: 18:54 Hernia repair; aj1 - Immunization history:: Adult Immunizations up to date. - Social history:: Smoking status: Patient/guardian denies using tobacco. - Ebola Screening: : Patient denies travel to an Ebola-affected area in the 21 days before illness onset. Screenin:00 Abuse screen: Denies threats or abuse. rk2 19:00 Nutritional screening: No deficits noted. Tuberculosis screening: No symptoms or risk rk2 factors identified. Fall Risk None identified. Assessment: 21:04 GI: Bowel sounds rk2 Vital Signs: 18:54 BP 109 / 86; Pulse 81; Resp 18; Temp 98.2; Pulse Ox 95% on R/A; Weight 131.54 kg (R); aj1 Height 5 ft. 10 in. (177.80 cm); Pain 9/10; 20:30 BP 107 / 53; Pulse 94; Resp 17; Pulse Ox 95% on R/A; rk2 18:54 Body Mass Index 41.61 (131.54 kg, 177.80 cm) aj1 ED Course: 18:36 Patient arrived in ED. rg4 18:50 Triage completed. aj1 18:54 Arm band placed on Patient placed in an exam room. aj1 19:00 Patient has correct armband on for positive identification. Bed in low position. Call rk2 light in reach. 19:17 CT Stone Protocol In Process Unspecified. EDMS 19:17 CT completed. Patient moved to CT via wheelchair. Patient moved back from CT. cw1 19:18 Yoav Person PA is PHCP. [facility] 19:18 Nawaf Calvin MD is Attending Physician. [facility] 19:21 Isela Sen, RN is Primary Nurse. kr2 21:06 No provider procedures requiring assistance completed. IV discontinued. rk2 Administered Medications: 19:51 Drug: diphenhydrAMINE 12.5 mg Route: IVP; Site: right antecubital; rk2 21:07 Follow up: Response: No adverse reaction rk2 19:51 Drug: Reglan 10 mg Route: IVP; Site: right antecubital; rk2 21:07 Follow up: Response: No adverse reaction rk2 19:52 Drug: NS 0.9% 1000 ml Route: IV; Rate: 125 ml/hr; Site: right antecubital; rk2 20:47 Follow up: Response: No adverse reaction; IV Status: Order to discontinue infusion rk2 19:52 Drug: morphine 4 mg Route: IVP; Site: right antecubital; rk2 21:07 Follow up: Response: No adverse reaction rk2 Outcome: 20:49 Discharge ordered by . [facility] 21:06 Discharged to home ambulatory. rk2 21:06 Condition: good 21:06 Discharge instructions given to patient. 21:06 Patient left the ED. rk2 Signatures: Dispatcher [employer] EDMS Cailin Guillermo, NAVJOT RN aj1 Yoav Person PA PA jmm Woodley, Crystal cw1 Daphney Talavera rg4 Isela Sen, RN RN kr2 Deysi Marroquin RN RN rk2
--- NOTE | 2017-11-29 20:49 | EDPHYS ---
Physician Documentation [facility] Name: Marquis Nelson Age: 47 yrs Sex: Male : 1970 Arrival Date: 11/29/2017 Time: 18:36 Bed 26 Private MD: ED Physician Nawaf Calvin HPI: 11/29 19:28 This 47 yrs old Male presents to ER via Ambulatory with complaints of jmm Possible Kidney Stone. 19:28 The patient complains of pain in the right flank. The pain radiates to the abdomen. jmm Onset: The symptoms/episode began/occurred gradually, 2 day(s) ago. Modifying factors: The symptoms are alleviated by nothing. the symptoms are aggravated by nothing. Associated signs and symptoms: Pertinent positives: nausea. This is a 47 year old male with a history of CAD, CHF that presents to the ED with right flank pain and nausea. Patient states this is similar to previous kidney stones. The patient is currently taking eliquis for a PE. Patient denies fever. . Historical: - Allergies: 18:54 Beta Blockers (sensitive/hypotension); aj1 18:54 Flomax; aj1 18:54 Neurontin; aj1 18:54 Skelaxin; aj1 18:54 Stadol; aj1 18:54 tramadol; aj1 - Home Meds: 18:54 allopurinol 300 mg Oral tab 1 tab once daily [Active]; amlodipine 5 mg tab 1 tab once aj1 daily [Active]; Eliquis 5 mg oral tab 1 tab 2 times per day [Active]; atorvastatin 40 mg Oral tab 1 tab once daily [Active]; clonazepam 1 mg Oral TbDL 2 times per day [Active]; docusate sodium 100 mg Oral tab 2 times per day [Active]; furosemide 80 mg Oral tab 2 times per day [Active]; Inspra 50 mg Oral tab 1 tab 2 times per day [Active]; metolazone 2.5 mg Oral tab as needed [Active]; metoprolol succinate 6.25mg Oral Tb24 as needed [Active]; Nitrostat SL as needed [Active]; Novolog Sub-Q [Active]; pantoprazole Oral [Active]; Plavix 75 mg Oral tab 1 tab once daily [Active]; Potassium Chloride 60MEQ Oral 3 times per day [Active]; Ranexa 1,000 mg oral Tb12 [Active]; Robaxin Oral [Active]; - PMHx: 18:54 AAA; Anemia; Anxiety; Atrial Fib; CHF; GERD; High Cholesterol; Hypertension; Kidney aj1 stones; Myocardial infarction; R BUNDLE BRANCH BLOCK; Sleep Apnea; pulmonary embolism; - PSHx: 18:54 Hernia repair; aj1 - Immunization history:: Adult Immunizations up to date. - Social history:: Smoking status: Patient/guardian denies using tobacco. - Ebola Screening: : Patient denies travel to an Ebola-affected area in the 21 days before illness onset. ROS: 19:28 Constitutional: Negative for fever, chills, and weight loss, Cardiovascular: Negative jmm for chest pain, palpitations, and edema, Respiratory: Negative for shortness of breath, cough, wheezing, and pleuritic chest pain. 19:28 MS/Extremity: Negative for injury and deformity. 19:28 Back: Positive for flank pain. 19:28 Skin: Negative for rash. 19:28 Neuro: Negative for weakness. 19:28 All other systems are negative. Exam: 19:28 Head/Face: atraumatic. Chest/axilla: Normal chest wall appearance and motion. jmm Nontender with no deformity. No lesions are appreciated. Cardiovascular: Regular rate and rhythm. No gallops, murmurs, or rubs. Full/Equal distal pulses. Respiratory: Lungs have equal breath sounds bilaterally, clear to auscultation. No rales, rhonchi or wheezes noted. No increased work of breathing, no retractions or nasal flaring. Abdomen/GI: Soft, non-tender, with normal bowel sounds. No distension or tympany. No guarding or rebound. No evidence of tenderness throughout. 19:28 Constitutional: The patient appears in no acute distress, alert, awake. 19:28 Back: CVA tenderness, that is mild, is noted on the right. 19:28 Musculoskeletal/extremity: ROM: intact in all extremities. 19:28 Skin: Appearance: Color: normal in color. 19:28 Neuro: Orientation: is normal, Mentation: is normal, Memory: is normal, Gait: is steady. 19:28 Psych: Behavior/mood is pleasant, cooperative. Vital Signs: 18:54 BP 109 / 86; Pulse 81; Resp 18; Temp 98.2; Pulse Ox 95% on R/A; Weight 131.54 kg (R); aj1 Height 5 ft. 10 in. (177.80 cm); Pain 9/10; 20:30 BP 107 / 53; Pulse 94; Resp 17; Pulse Ox 95% on R/A; rk2 18:54 Body Mass Index 41.61 (131.54 kg, 177.80 cm) aj1 MDM: 19:27 Patient medically screened. [facility] 19:28 Data reviewed: vital signs, nurses notes. [facility] 20:59 Data reviewed: lab test result(s), radiologic studies, CT scan. [facility] 20:59 Counseling: I had a detailed discussion with the patient and/or guardian regarding: the [facility] historical points, exam findings, and any diagnostic results supporting the discharge/admit diagnosis. Response to treatment: the patient's symptoms have markedly improved after treatment. 11/29 19:05 Order name: Amylase, Serum; Complete Time: 20:59 [facility] 11/29 19:05 Order name: Basic Metabolic Panel; Complete Time: 20:59 [facility] 11/29 19:05 Order name: CBC with Diff; Complete Time: 19:49 [facility] 11/29 19:05 Order name: Creatinine for Radiology; Complete Time: 20:04 [facility] 11/29 19:05 Order name: Hepatic Function; Complete Time: 20:59 [facility] 11/29 19:05 Order name: Lipase; Complete Time: 20:59 [facility] 11/29 19:05 Order name: Urine Microscopic Only; Complete Time: 20:59 [facility] 11/29 19:05 Order name: CT Stone Protocol; Complete Time: 19:31 [facility] 11/29 19:05 Order name: Urine Culture [facility] 11/29 19:22 Order name: Urine Dipstick--Ancillary (enter results); Complete Time: 20:37 [facility] 11/29 19:05 Order name: IV Saline Lock; Complete Time: 19:32 [facility] 11/29 19:05 Order name: Labs collected and sent; Complete Time: 19:32 [facility] 11/29 19:05 Order name: Urine Dipstick-Ancillary (obtain specimen); Complete Time: 19:32 [facility] Administered Medications: 19:51 Drug: diphenhydrAMINE 12.5 mg Route: IVP; Site: right antecubital; rk2 21:07 Follow up: Response: No adverse reaction rk2 19:51 Drug: Reglan 10 mg Route: IVP; Site: right antecubital; rk2 21:07 Follow up: Response: No adverse reaction rk2 19:52 Drug: NS 0.9% 1000 ml Route: IV; Rate: 125 ml/hr; Site: right antecubital; rk2 20:47 Follow up: Response: No adverse reaction; IV Status: Order to discontinue infusion rk2 19:52 Drug: morphine 4 mg Route: IVP; Site: right antecubital; rk2 21:07 Follow up: Response: No adverse reaction rk2 Disposition: 23:26 Co-signature as Attending Physician, Nawaf Calvin MD. rn Disposition: 11/29/17 20:49 Discharged to Home. Impression: Right Flank Pain. - Condition is Stable. - Discharge Instructions: Flank Pain. - Medication Reconciliation Form, Thank You Letter, Antibiotic Education, Prescription Opioid Use form. - Follow up: Private Physician; When: 2 - 3 days; Reason: Continuance of care. - Notes: Please follow up with urology for further evaluation of your flank pain. Please return to the ED if you develop fever, vomiting. Signatures: Dispatcher [employer] EDMS Cailin Guillermo RN RN aj1 Jose Nolasco MD MD cha Mickail, Joel, PA PA Nawaf Ng MD MD rn Kidder, Rhonda, RN RN rk2 Corrections: (The following items were deleted from the chart) 21:06 20:49 11/29/2017 20:49 Discharged to Home. Impression: Right Flank Pain. Condition is rk2 Stable. Forms are Medication Reconciliation Form, Thank You Letter, Antibiotic Education, Prescription Opioid Use. Follow up: Private Physician; When: 2 - 3 days; Reason: Continuance of care. elsa
[2017-11-29 20:51] LABS: Potassium 3.6 mEq/L (3.6-5.0)
[2017-11-29 20:57] LABS: Albumin 3.5 g/dL (3.2-5.5); Bilirubin Direct 0.1 mg/dL (0-0.2); Bilirubin Total 0.4 mg/dL (0.3-1.2); Protein, Total 7.6 g/dL (6.0-8.3)
[2017-11-29 21:12] VITALS: TEMP 98.2; O2SAT 95
[2017-11-29 21:13] VITALS: BP 107/53
== END 2017-11-29 21:06 | disposition home or self-care (01) ==
LOC: ER 18:34
DX: R10.9 Unspecified abdominal pain (principal); I10 Essential (primary) hypertension; E78.00 Pure hypercholesterolemia, unspecified; I48.91 Unspecified atrial fibrillation; I50.9 Heart failure, unspecified; F41.9 Anxiety disorder, unspecified; I25.2 Old myocardial infarction; Z79.01 Long term (current) use of anticoagulants; Z88.5 Allergy status to narcotic agent; Z88.6 Allergy status to analgesic agent; Z88.8 Allergy status to other drugs, medicaments and biological substances
CPT/HCPCS: 36415; 74176; 76377; 80048; 80076; 81003; 81015; 82150; 83690; 85025; 87086; 87088; 96361; 96374; 96375; 99284; J2765; J7030

== ENCOUNTER 2017-12-25 12:51 | Emergency (ER) | payer OTHER ==
--- OUTSIDE RECORDS SUMMARY | 2017-12-25 12:57 | XMS REPORT | Continuity of Care Document ---
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 [place] Congestive heart Resolved Problem 05/20/2016 2L fluid failure<sup>1</sup> restrictio [place] n/24hrs Diabetes Resolved Problem 05/20/2016 [facility] Hypercholesteremia Resolved Problem 05/20/2016 [facility] Hypertension Resolved Problem 05/20/2016 [facility] Kidney stone Resolved Problem 05/20/2016 [facility] Heart Resolved Problem 05/20/2016 December 04, attack<sup>2</sup> 2016 [place] Bundle branch block, Resolved Problem 05/20/2016 right [place] Sleep apnea Resolved Problem 05/20/2016 [facility] TUBULO-INTERSTITIAL Active [facility] NEPHRITIS, NOT [facility] [place] CHEST PAIN, Active [facility] UNSPECIFIED [place] Medications Medication Details Route Status Patient Ordering Order Source Instructions Provider Date Aspirin 81 mg, 1 tab, Inactive Route: PO, Drug 2015 [place] form: ECTAB, ONCE, Dosing Weight 128.636, kg, Priority: STAT, Start date: 05/17/16 17:16:00 EPIC DIRECTOR, Stop date: 05/17/16 17:16:00 CSTNotes: Do not crush or chew. (Same As: Ecotrin) Saline Flush 10 mL, Route: Inactive 0.9% IVP, Drug Form: 2015 [place] INJ, Dosing Weight 128.636, kg, PRN, PRN Line Flush, Start date: 05/17/16 15:48:00 EPIC DIRECTOR, Duration: 30 day, Stop date: 06/16/16 15:47:00 CSTNotes: (Same as: BD Posiflush) Plavix 75 mg, 1 tab, No Longer Route: PO, Drug Active 2015 [place] form: TAB, Daily, Dosing Weight 131.7, kg, Start date: 05/07/16 9:00:00 EPIC DIRECTOR, Duration: 30 day, Stop date: 06/05/16 9:00:00 CSTNotes: (Same As: Plavix) metoprolol 25 mg 25 mg=1 tab, PO, Active oral tablet, Daily, # 30 tab, 2015 [place] extended release 0 Refill(s) Protonix 40 mg, 1 tab, Inactive Route: PO, Drug 2015 [place] form: ECTAB, Before Dinner, Dosing Weight 131.7, kg, Start date: 05/06/16 16:30:00 EPIC DIRECTOR, Duration: 30 day, Stop date: 06/04/16 16:30:00 CSTNotes: Tablet should not be chewed or crushed. (Same as: Protonix) Lisinopril 2.5 mg, 0.5 tab, Inactive Route: PO, Drug 2015 [place] form: TAB, Daily, Dosing Weight 131.7, kg, Start date: 05/06/16 9:00:00 EPIC DIRECTOR, Duration: 30 day, Stop date: 06/04/16 9:00:00 CSTNotes: (Same as: Prinivil, Zestril) Aspirin 325 MG 325 mg, 1 tab, Inactive Oral Tablet Route: PO, Drug 2015 [place] form: TAB, Daily, Dosing Weight 127.273, kg, Start date: 05/06/16 9:00:00 EPIC DIRECTOR, Duration: 30 day, Stop date: 06/04/16 9:00:00 CSTNotes: Take with food. atorvastatin 40 40 mg=1 tab, PO, Active mg oral tablet Bedtime, # 90 2015 [place] tab, 1 Refill(s) Alprazolam 1 MG 1 mg, 2 tab, No Longer Oral Tablet Route: PO, Drug Active 2015 [place] [Xanax] form: TAB, Q8H, Dosing Weight 131.7, kg, PRN Anxiety, Start date: 05/05/16 22:49:00 EPIC DIRECTOR, Duration: 30 day, Stop date: 06/04/16 22:48:00 CSTNotes: With food or milk (Same as: Xanax) Lipitor 80 mg, 2 tab, No Longer Route: PO, Drug Active 2015 [place] form: TAB, Bedtime, Dosing Weight 127.273, kg, Start date: 05/05/16 21:00:00 EPIC DIRECTOR, Duration: 30 day, Stop date: 06/03/16 21:00:00 CSTNotes: (Same as: Lipitor) Clindamycin 300 mg, 2 cap, No Longer Route: PO, Drug Active 2015 [place] form: CAP, ABXQ6H, Dosing Weight 127.273, kg, Start date: 05/05/16 21:00:00 EPIC DIRECTOR, Stop date: 06/04/16 15:00:00 CSTNotes: (Same As: Cleocin) Saline Flush 10 ml, Route: No Longer 0.9% IVP, Drug Form: Active 2015 [place] INJ, Dosing Weight 127.273, kg, Q12H, Start date: 05/05/16 21:00:00 EPIC DIRECTOR, Duration: 30 day, Stop date: 06/04/16 9:00:00 CSTNotes: preservative free. Insulin, Aspart, 1 unit, 0.01 mL, No Longer Human Route: SUB-Q, Active 2015 [place] Drug form: SOLN, Bedtime, Dosing Weight 127.273, kg, PRN Blood Glucose Results, Start date: 05/05/16 20:27:00 EPIC DIRECTOR, Duration: 30 day, Stop date: 06/04/16 20:26:00 CSTNotes: Roll in palms of hands gently; Do not shake vigorously. (Same as: NovoLOG) "single patient use only" WASTE: F/P - Black; E - Municipal Trash Bin Stable for 28 days at room temperature. Expires in days from Da te Glucagon 1 mg, Route: IM, No Longer Drug form: Active 2015 [place] PDR/INJ, PRN, Dosing Weight 127.273, kg, PRN Blood Glucose Results, Start date: 05/05/16 20:27:00 EPIC DIRECTOR, Duration: 30 day, Stop date: 06/04/16 20:26:00 EPIC DIRECTOR Dextrose 50% 12.5 gm, 25 mL, No Longer Syringe Route: IVP, Drug Active 2015 [place] Form: INJ, Dosing Weight 127.273, kg, PRN, PRN Blood Glucose Results, Start date: 05/05/16 20:27:00 EPIC DIRECTOR, Duration: 30 day, Stop date: 06/04/16 20:26:00 EPIC DIRECTOR Morphine 2 mg, 1 mL, No Longer Route: IVP, Drug Active 2015 [place] form: INJ, Q2H, Dosing Weight 127.273, kg, PRN as needed for chest pain, Priority: STAT, Start date: 05/05/16 20:00:00 EPIC DIRECTOR, Duration: 30 day, Stop date: 06/04/16 19:59:00 CSTNotes: (Same as:MORPhine Sulfate) Plavix 75 mg, 1 tab, Inactive Route: PO, Drug 2015 [place] form: TAB, ONCE, Dosing Weight 127.273, kg, Priority: STAT, Start date: 05/05/16 19:58:00 EPIC DIRECTOR, Stop date: 05/05/16 19:58:00 CSTNotes: (Same As: Plavix) Saline Flush 10 ml, Route: No Longer 0.9% IVP, Drug Form: Active 2015 [place] INJ, Dosing Weight 127.273, kg, PRN, PRN Line Flush, Start date: 05/05/16 19:55:00 EPIC DIRECTOR, Duration: 30 day, Stop date: 06/04/16 19:54:00 CSTNotes: (Same as: BD Posiflush) Albuterol 0.833 3 ml, Route: No Longer MG/ML / NEB, Drug Form: Active 2015 [place] Ipratropium SOLN, Dosing [place] 0.167 Weight 127.273, MG/ML Inhalant kg, PRN, PRN Solution Respiratory Protocol, Start date: 05/05/16 19:55:00 EPIC DIRECTOR, Duration: 30 day, Stop date: 06/04/16 19:54:00 CSTNotes: (Same as: Duoneb) Nystatin 100 1 appl, Route: No Longer UNT/MG Topical TOP, PRN, Drug Active 2015 [place] Powder form: PWDR, PRN For Fungal Prophylaxis, Start date: 05/05/16 19:55:00 EPIC DIRECTOR, Duration: 30 day, Stop date: 06/04/16 19:54:00 CSTNotes: (Same as:Mycostatin, Nilstat) For external use only. Nitroglycerin 100 mg, 250 mL, No Longer Rate: Titrate, Active 2015 [place] Start Dose: 10 microgram/min, Titration: 10 microgram/min every 5 minutes, Goal(s): Chest pain and SBP between 100 - 150 mmHg, Max Dose: 200 mcg/min, Route: IV, Dosing Weight 127.273 kg, Total Volume: 250, Start date: ...Notes: (Same as:Tridil) Final conc=0.4 mg/ml. Premix bottle. heparin additive 500 mL, Rate: No Longer 25,000 unit [12 22.73 ml/hr, Active 2015 [place] unit/kg/hr] + Infuse over: 22 Premix Diluent hr, Route: IV, Dextrose 5% 500 Dosing Weight mL 94.7 kg, Total Volume: 500 mL, Start date: 05/05/16 19:43:00 EPIC DIRECTOR, Duration: 30 day, Stop date: 06/04/16 19:42:00 EPIC DIRECTOR Heparin 60 Route: IVP, PRN, No Longer unit/kg Bolus 5,800 unit, 5.8 Active 2015 [place] (Heparin Dosing mL, Drug form: Weight) INJ, PRN, Heparin Protocol, Start date: 05/05/16 19:43:00 EPIC DIRECTOR Stop date: 06/04/16 19:42:00 EPIC DIRECTOR Heparin 30 Route: IVP, PRN, No Longer unit/kg Bolus 2,900 unit, 2.9 Active 2015 [place] (Heparin Dosing mL, Drug form: Weight) INJ, PRN, Heparin Protocol, Start date: 05/05/16 19:43:00 EPIC DIRECTOR Stop date: 06/04/16 19:42:00 EPIC DIRECTOR Heparin - one 4,000 unit, 4 Inactive time bolus for mL, Route: IVP, 2016 [place] ACS Drug form: INJ, ONCE, Dosing Weight 127.273, kg, Priority: STAT, Start date: 05/05/16 19:43:00 EPIC DIRECTOR, Stop date: 05/05/16 19:43:00 EPIC DIRECTOR Morphine 4 mg, 1 mL, Inactive Route: IVP, Drug 2015 [place] form: INJ, ONCE, Dosing Weight 127.273, kg, Priority: STAT, Start date: 05/05/16 19:25:00 EPIC DIRECTOR, Stop date: 05/05/16 19:25:00 CSTNotes: (Same as:MORPhine Sulfate) Nitroglycerin 1 inch, Route: Inactive 0.02 MG/MG TOP, Dosing 2015 [place] Topical Ointment Weight 127.273, kg, ONCE, STAT, Start date: 05/05/16 17:40:00 EPIC DIRECTOR, Stop date: 05/05/16 17:40:00 EPIC DIRECTOR Aspirin 81 MG 243 mg, Route: Inactive Chewable Tablet PO, Drug form: 2015 [place] CHEWTAB, ONCE, Dosing Weight 127.273, kg, Priority: STAT, Start date: 05/05/16 17:17:00 EPIC DIRECTOR, Stop date: 05/05/16 17:17:00 EPIC DIRECTOR Morphine 4 mg, Route: Inactive IVP, ONCE, 2015 [place] Dosing Weight 127.273, kg, Priority: STAT, Start date: 05/05/16 17:15:00 EPIC DIRECTOR, Stop date: 05/05/16 17:15:00 EPIC DIRECTOR Saline Flush 10 mL, Route: No Longer 0.9% IVP, Drug Form: Active 2015 [place] INJ, Dosing Weight 128.182, kg, PRN, PRN Line Flush, Start date: 05/05/16 16:55:00 EPIC DIRECTOR, Duration: 30 day, Stop date: 06/04/16 16:54:00 CSTNotes: preservative free. Acetaminophen 1 - 2 tab, PO, No Longer 300 MG / Codeine Q4H, PRN Pain, X Active 2015 [place] Phosphate 30 MG 2 day, # 20 tab, Oral Tablet 0 Refill(s) [Tylenol with Codeine #3] Morphine 4 mg, 1 mL, Inactive Route: IVP, Drug 2015 [place] form: INJ, ONCE, Dosing Weight 128.182, kg, Priority: STAT, Start date: 04/25/16 19:51:00 CDT, Stop date: 04/25/16 19:51:00 CDTNotes: (Same as:MORPhine Sulfate) Zofran 4 mg, 2 mL, Inactive Route: IVP, Drug 2015 [place] form: INJ, ONCE, Dosing Weight 128.182, kg, Priority: STAT, Start date: 04/25/16 18:23:00 CDT, Stop date: 04/25/16 18:23:00 CDTNotes: (Same as: Zofran) MEDICATION WASTE Product Size: 4 mg Product Wasted: ___ mg Morphine 4 mg, 1 mL, Inactive Route: IVP, Drug 2015 [place] form: INJ, ONCE, Dosing Weight 128.182, kg, Priority: STAT, Start date: 04/25/16 18:23:00 CDT, Stop date: 04/25/16 18:23:00 CDTNotes: (Same as:MORPhine Sulfate) Saline Flush 10 mL, Route: Inactive 0.9% IVP, Drug Form: 2015 [place] INJ, Dosing Weight 129.091, kg, PRN, PRN Line Flush, Start date: 04/25/16 18:07:00 CDT, Duration: 30 day, Stop date: 05/25/16 17:06:00 CSTNotes: (Same as: BD Posiflush) Acetaminophen 1 tab, PO, Q6H, Active 300 MG / Codeine PRN Pain, X 5 2015 [place] Phosphate 30 MG day, # 20 tab, 0 Oral Tablet Refill(s) Morphine 4 mg, Route: Inactive IVP, ONCE, 2015 [place] Dosing Weight 129.091, kg, Priority: STAT, Start date: 03/05/16 8:44:00 CDT, Stop date: 03/05/16 8:44:00 CDT Ondansetron 4 mg, Route: Inactive IVP, Drug form: 2015 [place] INJ, ONCE, Dosing Weight 129.091, kg, Priority: STAT, Start date: 03/05/16 7:35:00 CDT, Stop date: 03/05/16 7:35:00 CDT Aspirin 324 mg, Route: Inactive PO, ONCE, Dosing 2015 [place] Weight 129.091, kg, Priority: STAT, Start date: 03/05/16 7:22:00 CDT, Stop date: 03/05/16 7:22:00 CDT Morphine 2 mg, Route: Inactive IVP, ONCE, 2015 [place] Dosing Weight 129.091, kg, Priority: STAT, Start date: 03/05/16 7:22:00 CDT, Stop date: 03/05/16 7:22:00 CDT Saline Flush 10 mL, Route: Inactive 0.9% IVP, Drug Form: 2015 [place] INJ, Dosing Weight 129.091, kg, PRN, PRN Line Flush, Start date: 03/05/16 7:22:00 CDT, Duration: 30 day, Stop date: 04/04/16 7:21:00 CDTNotes: (Same as: BD Posiflush) Dilaudid 0.5 mg, 0.5 mL, Inactive Route: IVP, Drug 2015 [place] form: INJ, ONCE, Dosing Weight 128.636, kg, Priority: STAT, Start date: 03/02/16 7:40:00 CDT, Stop date: 03/02/16 7:40:00 CDTNotes: Same as: Dilaudid Ketorolac 30 mg, 1 mL, Inactive Route: IVP, Drug 2015 [place] form: INJ, ONCE, Dosing Weight 128.636, kg, Priority: STAT, Start date: 03/02/16 5:25:00 CDT, Stop date: 03/02/16 5:25:00 CDTNotes: (Same as:Toradol) IV bolus must be given >15 seconds. Give IM administration slowly and deeply into the muscle. Not for use > 4 days MEDICATION WASTE Product Size: 30 mg Product Wasted: ___ mg Morphine 4 mg, 1 mL, Inactive Route: IVP, Drug 2015 [place] form: INJ, ONCE, Dosing Weight 128.636, kg, Priority: STAT, Start date: 03/02/16 5:25:00 CDT, Stop date: 03/02/16 5:25:00 CDTNotes: (Same as:MORPhine Sulfate) Ondansetron 4 mg, 2 mL, Inactive Route: IVP, Drug 2015 [place] form: INJ, ONCE, Dosing Weight 128.636, kg, Priority: STAT, Start date: 03/02/16 5:25:00 CDT, Stop date: 03/02/16 5:25:00 CDTNotes: (Same as: Zofran) MEDICATION WASTE Product Size: 4 mg Product Wasted: ___ mg Saline Flush 10 mL, Route: Inactive 0.9% IVP, Drug Form: 2015 [place] INJ, Dosing Weight 128.636, kg, PRN, PRN Line Flush, Start date: 03/02/16 5:25:00 CDT, Duration: 30 day, Stop date: 04/01/16 5:24:00 CDTNotes: (Same as: BD Posiflush) Sodium Chloride 1,000 mL, 2,000 Inactive 0.154 MEQ/ML ml/hr, Infuse 2015 [place] Injectable Over: 30 Solution minutes, Route: IV, 1,000, Drug form: INJ, ONCE, Priority: STAT, Dosing Weight 128.636 kg, Start date: 03/02/16 5:25:00 CDT, Duration: 1 doses or times, Stop date: 03/02/16 5:25:00 CDT Acetaminophen 1 tab, PO, Q6H, Active 300 MG / Codeine PRN Pain, # 28 2015 [place] Phosphate 30 MG tab, 0 Refill(s) Oral Tablet [Tylenol with Codeine #3] Protonix 40 mg, 1 tab, No Longer Route: PO, Drug Active 2015 [place] form: ECTAB, Before Breakfast, Dosing Weight 129.545, kg, Start date: 02/18/16 7:30:00 CDT, Duration: 30 day, Stop date: 03/18/16 7:30:00 CDTNotes: Tablet should not be chewed or crushed. (Same as: Protonix) Lipitor 80 mg, 2 tab, No Longer Route: PO, Drug Active 2015 [place] form: TAB, Bedtime, Dosing Weight 129.545, kg, Start date: 02/17/16 21:00:00 CDT, Duration: 30 day, Stop date: 03/17/16 21:00:00 CDTNotes: (Same as: Lipitor) Morphine 2 mg, 1 mL, No Longer Route: IVP, Drug Active 2015 [place] form: INJ, Q4H, Dosing Weight 129.545, kg, PRN Pain Score 7-10, Start date: 02/17/16 11:54:00 CDT, Duration: 30 day, Stop date: 03/18/16 11:53:00 CDTNotes: (Same as:MORPhine Sulfate) Lovenox 40 mg, 0.4 mL, No Longer Route: SUB-Q, Active 2015 [place] Drug form: INJ, [id number], Dosing Weight 129.545, kg, Start date: 02/17/16 10:00:00 CDT, Duration: 30 day, Stop date: 03/17/16 10:00:00 CDTNotes: (Same as: Lovenox) Lisinopril 2.5 mg, 0.5 tab, No Longer Route: PO, Drug Active 2015 [place] form: TAB, Daily, Dosing Weight 129.545, kg, Start date: 02/17/16 9:55:00 CDT, Duration: 30 day, Stop date: 03/18/16 9:00:00 CDTNotes: (Same as: Prinivil, Zestril) Imdur 30 mg, 1 tab, No Longer Route: PO, Drug Active 2015 [place] form: ERTAB, QAM, Dosing Weight 129.545, kg, Start date: 02/17/16 9:54:00 CDT, Duration: 30 day, Stop date: 03/18/16 9:00:00 CDTNotes: (Same as:Imdur) "Do Not Crush" Take on empty stomach/ full glass of water. Do not crush Plavix 75 mg, 1 tab, No Longer Route: PO, Drug Active 2015 [place] form: TAB, Daily, Dosing Weight 129.545, kg, Start date: 02/17/16 9:54:00 CDT, Duration: 30 day, Stop date: 03/18/16 9:00:00 CDTNotes: (Same As: Plavix) Aspirin 81 MG 81 mg, 1 tab, No Longer Enteric Coated Route: PO, Drug Active 2015 [place] Tablet form: ECTAB, Daily, Dosing Weight 129.545, kg, Start date: 02/17/16 9:54:00 CDT, Duration: 30 day, Stop date: 03/18/16 9:00:00 CDTNotes: Do not crush or chew. (Same As: Ecotrin) Zofran ODT 4 mg, 1 tab, No Longer Route: PO, Drug Active 2015 [place] form: TABDIS, Q12H, Dosing Weight 129.545, kg, PRN Nausea, Start date: 02/17/16 9:25:00 CDT, Duration: 30 day, Stop date: 03/18/16 9:24:00 CDTNotes: (Same as: Zofran ODT) Nitroglycerin 0.4 mg, 1 tab, No Longer 0.4 MG Route: SL, Drug Active 2015 [place] Sublingual form: TAB, Tablet Q5Min, Dosing [Nitrostat] Weight 129.545, kg, PRN Chest Pain, Start date: 02/17/16 9:25:00 CDT, Duration: 30 day, Stop date: 03/18/16 9:24:00 CDTNotes: (Same as:Nitroquick, Nitrostat) "Do Not Crush" Sublingual tablet Alprazolam 1 MG 1 mg, 1 tab, No Longer Oral Tablet Route: PO, Drug Active 2015 [place] [Xanax] form: TAB, Q8H, Dosing Weight 129.545, kg, PRN Anxiety, Start date: 02/17/16 9:23:00 CDT, Duration: 30 day, Stop date: 03/18/16 9:22:00 CDTNotes: With food or milk (Same as: Xanax) pneumococcal 0.5 mL, Route: Inactive capsular IM, Drug Form: 2016 [place] polysaccharide INJ, Daily, type 1 vaccine / Start date: pneumococcal 02/17/16 9:00:00 capsular CDT, Duration: 1 polysaccharide doses or times, type 10A vaccine Stop date: / pneumococcal 02/17/16 9:00:00 capsular CDTNotes: (Same polysaccharide as: Pneumovax type 11A vaccine 23) Refrigerate / pneumococcal capsular polysaccharide type 12F vaccine / pneumococcal capsular polysacchar Ondansetron 4 MG 4 mg=1 tab, PO, No Longer Disintegrating Q12H, PRN Active 2015 [place] Tablet [Zofran] Nausea, 0 Refill(s) Aspirin 81 MG 81 mg=1 tab, PO, Active Enteric Coated Daily, # 90 tab, 2015 [place] Tablet 3 Refill(s) Nitroglycerin 0.4 mg=1 tab, No Longer 0.4 MG SL, Q5Min, PRN Active 2015 [place] Sublingual Chest Pain, # Tablet 100 tab, 0 [Nitrostat] Refill(s) pantoprazole 40 40 mg=1 tab, PO, Active MG Enteric Daily, # 30 tab, 2016 [place] Coated Tablet 0 Refill(s) [Protonix] 24 HR Isosorbide 30 mg=1 tab, PO, Active Mononitrate 30 QAM, # 30 tab, 0 2015 [place] MG Extended Refill(s) Release Tablet [Imdur] Hydroxyzine 25 mg=1 tab, PO, No Longer Hydrochloride 25 Bedtime, PRN Active 2016 [place] MG Oral Tablet Sleep, # 30 tab, 0 Refill(s) Furosemide 20 MG 20 mg=1 tab, PO, Active Oral Tablet Daily, # 30 tab, 2016 [place] 0 Refill(s) Potassium 20 mEq=1 tab, Active Chloride 20 MEQ PO, Daily, # 90 2016 [place] Extended Release tab, 1 Refill(s) Tablet [Klor-Con] Alprazolam 1 MG 1 mg=1 tab, PO, Active Oral Tablet Q8H, PRN 2016 [place] [Xanax] Anxiety, 0 Refill(s) Metformin 1 tab, PO, BID, Active hydrochloride # 60 tab, 0 2015 [place] 500 MG / Refill(s) repaglinide 1 MG Oral Tablet Acetaminophen 1 tab, PO, Q6H, No Longer 300 MG / Codeine PRN Pain, # 28 Active 2016 [place] Phosphate 30 MG tab, 0 Refill(s) Oral Tablet [Tylenol with Codeine #3] lisinopril 2.5 2.5 mg=1 tab, Active mg oral tablet PO, Daily, # 30 2016 [place] tab, 0 Refill(s) clopidogrel 75 75 mg=1 tab, PO, Active MG Oral Tablet Daily, # 30 tab, 2016 [place] [Plavix] 0 Refill(s) atorvastatin 80 80 mg=1 tab, PO, Active MG Oral Tablet Bedtime, # 30 2016 [place] [Lipitor] tab, 0 Refill(s) Ceftriaxone 1 gm, Route: Inactive IVPB, Drug form: 2015 [place] PDR/INJ, ONCE, Dosing Weight 129.545, kg, Priority: STAT, Start date: 02/17/16 7:01:00 CDT, Stop date: 02/17/16 7:01:00 CDT Dilaudid 0.5 mg, Route: Inactive IVP, ONCE, 2015 [place] Dosing Weight 129.545, kg, Priority: STAT, Start date: 02/17/16 6:28:00 CDT, Stop date: 02/17/16 6:28:00 CDT Zofran 4 mg, Route: Inactive IVP, Drug form: 2015 [place] INJ, ONCE, Dosing Weight 129.545, kg, Priority: STAT, Start date: 02/17/16 5:32:00 CDT, Stop date: 02/17/16 5:32:00 CDT Dilaudid 0.5 mg, Route: Inactive IVP, ONCE, 2015 [place] Dosing Weight 129.545, kg, Priority: STAT, Start date: 02/17/16 5:32:00 CDT, Stop date: 02/17/16 5:32:00 CDT Saline Flush 10 mL, Route: Inactive 0.9% IVP, Drug Form: 2015 [place] INJ, kg, PRN, PRN Line Flush, Start date: 02/17/16 5:19:00 CDT, Duration: 30 day, Stop date: 03/18/16 5:18:00 CDTNotes: (Same as: BD Posiflush) Allergies, Adverse Reactions, Alerts Substance Category Reaction Severity Reaction Status Date Comments Source type Reported beta Assertion Drug Active blockers allergy [place] Flomax Assertion Drug Active allergy [place] Stadol Assertion Drug Active MH allergy [place] traMADol Assertion Drug Active MH allergy [place] Immunizations Immunization Date Given Site Status Last Updated Comments Source pneumococcal 02/17/2016 Not Given [facility] 23-valent vaccine Results Order Name Results Value Reference Date Interpretation Comments Source Range URINE AND UA Mucus Few /LPF None Seen 05/17 STOOL /LPF [place] URINE AND UA Leuk Est Negative Negative 05/17 STOOL [place] (05/17/16 5:16 PM) URINE AND UA Bili Negative Negative 05/17 STOOL [place] *NA* (05/17/16 5:16 PM) URINE AND UA Ketones Negative Negative 05/17 STOOL mg/dL mg/dL [place] URINE AND UA Nitrite Negative Negative 05/17 STOOL [place] (05/17/16 5:16 PM) URINE AND UA 0.2 EU/dL 0.1 - 1.0 05/17 STOOL Urobilinogen [place] URINE AND UA Turbidity Clear Clear 05/17 STOOL [place] (05/17/16 5:16 PM) URINE AND UA Blood Negative Negative 05/17 STOOL [place] (05/17/16 5:16 PM) URINE AND UA Glucose Negative Negative 05/17 [place]OL mg/dL mg/dL [place] URINE AND UA Protein Negative Negative 05/17 STOOL mg/dL mg/dL [place] URINE AND UA pH 6.5 5.0 - 8.0 05/17 STOOL [place] URINE AND UA Spec Grav 1.020 <=1.030 05/17 STOOL [place] URINE AND UA Color Yellow Yellow 05/17 STOOL [place] *NA* (05/17/16 5:16 PM) URINE AND UA Sq Epi Rare /LPF Few /LPF 05/17 STOOL [place] URINE AND UA Bacteria Occasional None Seen 05/17 STOOL /HPF /HPF [place] URINE AND UA RBC 0-2 /HPF 0 - 2 05/17 STOOL [place] URINE AND UA WBC 0-2 /HPF None Seen 05/17 STOOL /HPF /2015 [place] CARDIAC Total CK 74 unit/L 12 - 191 05/17 ENZYMES [place] CARDIAC CK MB 0.8 ng/mL 0.5 - 3.6 05/17 ENZYMES [place] CARDIAC Troponin-I null 0.00 - 05/17 ENZYMES 0.40 [place] CARDIAC CK-MB INDEX 1.1 0.0 - 2.5 05/17 [place] CHEM PANEL eGFR 79 05/17 Result Comment: The eGFR is calculated using the CKD-EPI formula. In most young, healthy individuals the eGFR will be >90 mL/ min/1.73m2. The eGFR declines with age. An eGFR of 60-89 may be normal in mL/min/1.7 /2016 some populations, particularly the elderly, for whom the CKD-EPI formula has not been extensively validated. Use of the eGFR is not recommended in the following populations: [place] 3m2 Individuals with unstable creatinine concentrations, including patients and those with serious co-morbid conditions. Patients with extremes in muscle mass or diet. The data above are obtained from the National Kid[employer] Disease Education Program (NKDEP) which additionally recommends that when the eGFR is used in patients with extremes of body mass index for purposes of drug dosing, the eGFR should be multiplied by the estimated BMI. CHEM PANEL Chloride Lvl 106 meq/L 95 - 109 05/17 [place] CHEM PANEL CO2 28 meq/L 24 - 32 05/17 [place] CHEM PANEL Calcium Lvl 8.8 mg/dL 8.5 - 10.5 05/17 [place] CHEM PANEL Bili Total 0.4 mg/dL 0.2 - 1.3 05/17 [place] CHEM PANEL AGAP 9.7 meq/L 10.0 - 05/17 20.0 [place] CHEM PANEL B/C Ratio 14 6 - 25 05/17 [place] CHEM PANEL ASPARTATE 14 unit/L 0 - 37 05/17 MH [place] CHEM PANEL Total 7.7 g/dL 6.4 - 8.4 05/17 [place] CHEM PANEL Globulin 4.4 g/dL 2.7 - 4.2 05/17 [place] CHEM PANEL A/G Ratio 0.8 0.7 - 1.6 11 [place] CHEM PANEL Glucose Lvl 148 mg/dL 70 - 99 05/17 [place] CHEM PANEL BUN 15 mg/dL 7 - 22 05/17 [place] CHEM PANEL Creatinine 1.11 mg/dL 0.50 - 05/17 MH Lvl 1.40 [place] CHEM PANEL Sodium Lvl 140 meq/L 135 - 145 05/17 [place] CHEM PANEL Potassium 3.7 meq/L 3.5 - 5.1 05/17 MH Lvl [place] CHEM PANEL Albumin Lvl 3.3 g/dL 3.5 - 5.0 05/17 [place] CHEM PANEL Alk Phos 129 unit/L 39 - 136 05/17 [place] CHEM PANEL ALANINE 30 unit/L 0 - 65 05/17 AMINOTRANS [place] HEMATOLOGY MPV 7.3 fL 7.4 - 10.4 05/17 [facility] HEMATOLOGY Platelet 281 K/CMM 133 - 450 05/17 [facility] HEMATOLOGY RBC X 10x6 5.30 M/CMM 4.70 - 05/17 MH 6.10 [facility] HEMATOLOGY WBC X 10x3 10.5 K/CMM 3.7 - 10.4 05/17 [facility] HEMATOLOGY Hgb 12.4 g/dL 14.0 - 05/17 MH 18.0 [facility] HEMATOLOGY Hct 36.8 % 42.0 - 05/17 MH 54.0 [facility] HEMATOLOGY MCV 69.4 fL 80.0 - 05/17 MH 94.0 [facility] HEMATOLOG[facility] MCH 23.4 pg 27.0 - 05/17 MH 31.0 [facility] HEMATOLOG[facility] MCHC 33.7 g/dL 32.0 - 05/17 MH 36.0 /2015 [facility] HEMATOLOGY RDW 17.1 % 11.5 - 05/17 MH 14.5 /2015 [facility] HEMATOLOGY aPTT 35.4 s 22.9 - 05/17 35.8 /2015 [facility] HEMATOLOGY PROTIME 13.1 s 12.0 - 05/17 MH 14.7 /2015 [facility] HEMATOLOGY INR 0.97 0.85 - 05/17 MH 1.17 /2015 [facility] HEMATOLOGY Eosinophils 1.1 % 0.0 - 4.0 05/17 [facility] HEMATOLOGY Monocytes 6.7 % 2.0 - 12.0 05/17 [facility] HEMATOLOGY Segs-Bands # 7.2 K/CMM 1.5 - 8.1 05/17 [facility] HEMATOLOGY Basophils 1.1 % 0.0 - 1.0 05/17 [facility] HEMATOLOGY Lymphocytes 2.4 K/CMM 1.0 - 5.5 05/17 # /2015 [facility] HEMATOLOGY Monocytes # 0.7 K/CMM 0.0 - 0.8 05/17 [facility] HEMATOLOGY Eosinophils 0.1 K/CMM 0.0 - 0.5 05/17 # /2015 [facility] HEMATOLOGY Microcyte 2+ None Seen 05/17 [facility] *ABN* (05/17/16 4:01 PM) HEMATOLOGY Basophils # 0.1 K/CMM 0.0 - 0.2 05/17 [facility] HEMATOLOGY Lymphocytes 22.3 % 20.0 - 05/17 40.0 [facility] HEMATOLOGY Segs 68.8 % 45.0 - 05/17 75.0 [facility] Chest 1view Chest 1view Portable chest: The cardiomediastinal silhouette and pulmonary vasculature are within normal limits. The lungs and pleural spaces are clear. There are no acute osseous abnormalities. There is no significant change compared to 05/05/2016. 05/17 - [facility] DX DX /2015 - [place] IMPRESSION: Read by: Rizwan Barnhart MD Dictated Date/time: 05/17/16 16:37 Electronically Signed by: Rizwan Barnhart MD 05/17/16 16:38 FINAL REPORT No acute radiographic abnormality in the chest. [id number] CARDIAC Troponin-I null 0.00 - 05/06 ENZYMES 0.40 [place] HEMATOLOGY aPTT 50.1 s 22.9 - 05/06 MH 35.8 2016 [place] ELECTROLYTE AGAP 10.8 meq/L 10.0 - 05/06 S 20.0 [place] ELECTROLYTE CO2 28 meq/L 24 - 32 05/06 S [place] ELECTROLYTE Chloride Lvl 105 meq/L 95 - 109 05/06 S [place] ELECTROLYTE Calcium Lvl 8.7 mg/dL 8.5 - 10.5 05/06 S [place] ELECTROLYTE eGFR 103 05/06 Result Comment: The eGFR is calculated using the CKD-EPI formula. In most young, healthy individuals the eGFR will be > 90 mL/min/1.73m2. The eGFR declines with age. An eGFR of 60-89 may be normal in mL/min/1. some populations, particularly the elderly, for whom the CKD-EPI formula has not been extensively validated. Use of the eGFR is not recommended in the following populations: [address] Individuals with unstable creatinine concentrations, including patients and those with serious co-morbid conditions. Patients with extremes in muscle mass or diet. The data above are obtained from the National Kidney Disease Education Program (NKDEP) which additionally recommends that when the eGFR is used in patients with extremes of body mass index for purposes of drug dosing, the eGFR should be multiplied by the estimated BMI. ELECTROLYTE Glucose Lvl 123 mg/dL 70 - 99 05/06 S [place] ELECTROLYTE Creatinine 0.86 mg/dL 0.50 - 05/06 S Lvl 1.40 [place] ELECTROLYTE BUN 18 mg/dL 7 - 22 05/06 S [place] ELECTROLYTE Potassium 3.8 meq/L 3.5 - 5.1 05/06 S Lvl [place] ELECTROLYTE Sodium Lvl 140 meq/L 135 - 145 05/06 S [place] HEMATOLOGY Microcyte 2+ None Seen 05/06 [place] *ABN* (05/06/16 2:42 AM) HEMATOLOGY Eosinophils 0.2 K/CMM 0.0 - 0.5 05/06 # /2015 [place] HEMATOLOGY Monocytes # 0.8 K/CMM 0.0 - 0.8 05/06 [place] HEMATOLOGY Monocytes 7.9 % 2.0 - 12.0 05/06 [place] HEMATOLOGY Lymphocytes 2.5 K/CMM 1.0 - 5.5 05/06 MH # /2016 [place] HEMATOLOGY Segs-Bands # 6.5 K/CMM 1.5 - 8.1 05/06 [place] HEMATOLOGY Basophils 0.4 % 0.0 - 1.0 05/06 MH [place] HEMATOLOGY Eosinophils 1.7 % 0.0 - 4.0 05/06 /2015 [place] HEMATOLOGY Lymphocytes 24.8 % 20.0 - 05/06 MH 40.0 [place] HEMATOLOGY Segs 65.2 % 45.0 - 05/06 MH 75.0 [place] HEMATOLOGY RBC X 10x6 5.11 M/CMM 4.70 - 05/06 MH 6.10 [place] HEMATOLOGY Hct 36.2 % 42.0 - 05/06 MH 54.0 [place] HEMATOLOGY Hgb 11.8 g/dL 14.0 - 05/06 MH 18.0 [place] HEMATOLOGY Platelet 272 K/CMM 133 - 450 05/06 [place] HEMATOLOGY RDW 17.1 % 11.5 - 05/06 14. [place] HEMATOLOGY MPV 7.8 fL 7.4 - 10.4 05/06 /2015 [place] HEMATOLOGY WBC X 10x3 9.9 K/CMM 3.7 - 10.4 05/06 [place] HEMATOLOGY MCHC 32.5 g/dL 32.0 - 05/06 MH 36.0 [place] HEMATOLOGY MCH 23.0 pg 27.0 - 05/06 31.0 [place] HEMATOLOGY MCV 70.8 fL 80.0 - 05/06 94.0 [place] HEMATOLOGY PROTIME 13.4 s 12.0 - 05/06 14. [place] HEMATOLOGY INR 1.00 0.85 - 05/06 MH 1.17 [place] HEMATOLOGY aPTT 49.1 s 22.9 - 05/06 35.8 [place] URINE AND UA Bacteria None Seen None Seen 05/06 STOOL [place] (05/05/16 10:09 PM) URINE AND UA Blood Negative Negative 05/06 STOOL [place] (05/05/16 10:09 PM) URINE AND UA RBC 0-2 /HPF 0 - 2 05/06 [place] URINE AND UA WBC None Seen None Seen 05/06 STOOL [place] (05/05/16 10:09 PM) URINE AND UA Sq Epi None Seen Few 05/06 STOOL [place] (05/05/16 10:09 PM) URINE AND UA Leuk Est Negative Negative 05/06 STOOL [place] (05/05/16 10:09 PM) URINE AND UA 0.2 EU/dL 0.1 - 1.0 05/06 [facility]OL Urobilinogen [place] URINE AND UA Nitrite Negative Negative 05/06 STOOL [place] (05/05/16 10:09 PM) URINE AND UA Color Yellow Yellow 05/06 [place] *NA* (05/05/16 10:09 PM) URINE AND UA Glucose Negative Negative 05/06 STOOL [place] (05/05/16 10:09 PM) URINE AND UA Bili Negative Negative 05/06 [place] *NA* (05/05/16 10:09 PM) URINE AND UA Ketones Negative Negative 05/06 [place] *NA* (05/05/16 10:09 PM) URINE AND UA Protein Negative Negative 05/06 STOOL [place] (05/05/16 10:09 PM) URINE AND UA pH 6.0 5.0 - 8.0 05/06 [place] URINE AND UA Turbidity Clear Clear 05/06 [place] (05/05/16 10:09 PM) URINE AND UA Spec Grav >=1.030 <=1.030 05/06 [place] *ABN* (05/05/16 10:09 PM) BACTERIAL - MRSA by PCR Negative 05/06 SEROLOGY [place] (05/05/16 10:06 PM) HEMATOLOGY Basophils # 0.1 K/CMM 0.0 - 0.2 05/06 [place] HEMATOLOGY Microcyte 2+ None Seen 05/06 [place] *ABN* (05/05/16 9:38 PM) HEMATOLOGY Eosinophils 1.4 % 0.0 - 4.0 05/06 [place] HEMATOLOGY Basophils 0.7 % 0.0 - 1.0 05/06 [place] HEMATOLOGY Segs-Bands # 7.1 K/CMM 1.5 - 8.1 05/06 /2015 [place] HEMATOLOGY Lymphocytes 24.8 % 20.0 - 05/06 MH 40.0 /2015 [place] HEMATOLOGY Monocytes 7.9 % 2.0 - 12.0 05/06 /2015 [place] HEMATOLOGY Monocytes # 0.9 K/CMM 0.0 - 0.8 05/06 /2015 [place] HEMATOLOGY Eosinophils 0.2 K/CMM 0.0 - 0.5 05/06 MH # /2015 [place] HEMATOLOGY Lymphocytes 2.7 K/CMM 1.0 - 5.5 05/06 MH # /2015 [place] HEMATOLOGY Segs 65.2 % 45.0 - 05/06 MH 75.0 /2015 [place] HEMATOLOGY MCV 69.7 fL 80.0 - 05/06 MH 94.0 [place] HEMATOLOGY MCH 23.3 pg 27.0 - 05/06 MH 31.0 [place] HEMATOLOGY Hgb 12.2 g/dL 14.0 - 05/06 MH 18.0 [place] HEMATOLOGY Hct 36.5 % 42.0 - 05/06 MH 54.0 [place] HEMATOLOGY MCHC 33.4 g/dL 32.0 - 05/06 MH 36.0 [place] HEMATOLOGY Platelet 276 K/CMM 133 - 450 05/06 /2015 [place] HEMATOLOGY MPV 7.2 fL 7.4 - 10.4 05/06 /2015 [place] HEMATOLOGY RDW 17.5 % 11.5 - 05/06 MH 14. [place] HEMATOLOGY WBC X 10x3 11.0 K/CMM 3.7 - 10.4 05/06 [place] HEMATOLOGY RBC X 10x6 5.24 M/CMM 4.70 - 05/06 MH 6.10 [place] HEMATOLOGY INR 1.05 0.85 - 05/06 MH 1.17 [place] HEMATOLOGY PROTIME 13.9 s 12.0 - 05/06 14. [place] HEMATOLOGY aPTT 35.3 s 22.9 - 05/06 MH 35.8 [place] CARDIAC CK-MB INDEX 1.0 0.0 - 2.5 05/05 ENZYMES /2015 [place] CARDIAC CK MB 0.8 ng/mL 0.5 - 3.6 05/05 ENZYMES /2015 [place] CARDIAC Total CK 80 unit/L 12 - 191 05/05 ENZYMES [place] CARDIAC Troponin-I null 0.00 - 05/05 ENZYMES 0.40 [place] CHEM PANEL Alk Phos 133 unit/L 39 - 136 05/05 [place] CHEM PANEL Glucose Lvl 137 mg/dL 70 - 99 05/05 [place] CHEM PANEL BUN 17 mg/dL 7 - 22 05/05 [place] CHEM PANEL Creatinine 1.01 mg/dL 0.50 - 05/05 MH Lvl 1.40 [place] CHEM PANEL Sodium Lvl 139 meq/L 135 - 145 05/05 [place] CHEM PANEL ALANINE 34 unit/L 0 - 65 05/05 AMINOTRANSFE [place] RASE CHEM PANEL Albumin Lvl 3.3 g/dL 3.5 - 5.0 05/05 [place] CHEM PANEL Chloride Lvl 105 meq/L 95 - 109 05/05 [place] CHEM PANEL eGFR 88 05/05 Result Comment: The eGFR is calculated using the CKD-EPI formula. In most young, healthy individuals the eGFR will be >90 mL/ min/1.73m2. The eGFR declines with age. An eGFR of 60-89 may be normal in mL/min/1.7 some populations, particularly the elderly, for whom the CKD-EPI formula has not been extensively validated. Use of the eGFR is not recommended in the following populations: [address] Individuals with unstable creatinine concentrations, including patients and those with serious co-morbid conditions. Patients with extremes in muscle mass or diet. The data above are obtained from the National Kidney Disease Education Program (NKDEP) which additionally recommends that when the eGFR is used in patients with extremes of body mass index for purposes of drug dosing, the eGFR should be multiplied by the estimated BMI. CHEM PANEL Bili Total 0.4 mg/dL 0.2 - 1.3 05/05 [place] CHEM PANEL Calcium Lvl 8.6 mg/dL 8.5 - 10.5 05/05 [place] CHEM PANEL Potassium 3.7 meq/L 3.5 - 5.1 05/05 Lvl [place] CHEM PANEL CO2 28 meq/L 24 - 32 05/05 [place] CHEM PANEL Total 7.8 g/dL 6.4 - 8.4 05/05 [place] CHEM PANEL ASPARTATE 16 unit/L 0 - 37 05/05 [place] CHEM PANEL AGAP 9.7 meq/L 10.0 - 05/05 MH 20.0 [place] CHEM PANEL B/C Ratio 17 6 - 25 05/05 [place] CHEM PANEL Globulin 4.5 g/dL 2.7 - 4.2 05/05 [place] CHEM PANEL A/G Ratio 0.7 0.7 - 1.6 05/05 [place] HEMATOLOGY Monocytes # 0.8 K/CMM 0.0 - 0.8 05/05 [place] HEMATOLOGY Eosinophils 0.1 K/CMM 0.0 - 0.5 05/05 # [place] HEMATOLOGY Basophils # 0.1 K/CMM 0.0 - 0.2 05/05 [place] HEMATOLOGY Microcyte 2+ None Seen 05/05 [place] *ABN* (05/05/16 5:11 PM) HEMATOLOGY Monocytes 7.5 % 2.0 - 12.0 05/05 [place] HEMATOLOGY Eosinophils 1.1 % 0.0 - 4.0 05/05 [place] HEMATOLOGY Basophils 0.7 % 0.0 - 1.0 05/05 [place] HEMATOLOGY Segs-Bands # 7.5 K/CMM 1.5 - 8.1 05/05 [place] HEMATOLOGY Lymphocytes 2.1 K/CMM 1.0 - 5.5 05/05 [place] HEMATOLOGY Lymphocytes 19.9 % 20.0 - 05/05 MH 40.0 [place] HEMATOLOGY Segs 70.8 % 45.0 - 05/05 MH 75.0 [place] HEMATOLOGY Platelet 306 K/CMM 133 - 450 05/05 [place] HEMATOLOGY MCHC 33.6 g/dL 32.0 - 05/05 MH 36.0 [place] HEMATOLOGY MPV 7.3 fL 7.4 - 10.4 05/05 [place] HEMATOLOGY RDW 16.9 % 11.5 - 05/05 MH 14. 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 Electronically Signed by: Tito Farnsworth MD 05/05/16 17:34 FINAL REPORT IMPRESSION: Stable mildly enlarged cardiac silhouette. Atherosclerotic thoracic aorta. No focal consolidation, significant pleural effusion or pneumothorax. SL: [id number] CHEM PANEL Globulin 4.2 g/dL 2.7 - 4.2 04/25 [place] CHEM PANEL B/C Ratio 19 6 - 25 04/25 [place] CHEM PANEL AGAP 9.9 meq/L 10.0 - 04/25 20.0 [place] CHEM PANEL A/G Ratio 0.8 0.7 - 1.6 04/25 [place] CHEM PANEL eGFR 100 04/25 Result Comment: The eGFR is calculated using the CKD-EPI formula. In most young, healthy individuals the eGFR will be >90 mL/ min/1.73m2. The eGFR declines with age. An eGFR of 60-89 may be normal in MH mL/min/1.7 /2016 some populations, particularly the elderly, for whom the CKD-EPI formula has not been extensively validated. Use of the eGFR is not recommended in the following populations: [address] Individuals with unstable creatinine concentrations, including patients and those with serious co-morbid conditions. Patients with extremes in muscle mass or diet. The data above are obtained from the National Kidney Disease Education Program (NKDEP) which additionally recommends that when the eGFR is used in patients with extremes of body mass index for purposes of drug dosing, the eGFR should be multiplied by the estimated BMI. CHEM PANEL Alk Phos 128 unit/L 39 - 136 04/25 [place] CHEM PANEL Albumin Lvl 3.4 g/dL 3.5 - 5.0 04/25 [place] CHEM PANEL ALANINE 30 unit/L 0 - 65 04/25 AMINOTRANSFE [place] RASE CHEM PANEL Total 7.6 g/dL 6.4 - 8.4 04/25 Protein [place] CHEM PANEL Bili Total 0.3 mg/dL 0.2 - 1.3 04/25 [place] CHEM PANEL ASPARTATE 14 unit/L 0 - 37 04/25 TRANSAMINASE [place] CHEM PANEL CO2 26 meq/L 24 - 32 04/25 [place] CHEM PANEL Calcium Lvl 8.7 mg/dL 8.5 - 10.5 04/25 [place] CHEM PANEL Chloride Lvl 104 meq/L 95 - 109 04/25 [place] CHEM PANEL Potassium 3.9 meq/L 3.5 - 5.1 04/25 MH Lvl /2015 [place] CHEM PANEL Glucose Lvl 221 mg/dL 70 - 99 04/25 [place] CHEM PANEL Sodium Lvl 136 meq/L 135 - 145 04/25 [place] CHEM PANEL Creatinine 0.91 mg/dL 0.50 - 04/25 [facility] Lvl 1.40 [place] CHEM PANEL BUN 17 mg/dL 7 - 22 04/25 [place] HEMATOLOGY RBC X 10x6 5.40 M/CMM 4.70 - 04/25 MH 6.10 [place] HEMATOLOGY WBC X 10x3 10.3 K/CMM 3.7 - 10.4 04/25 [place] HEMATOLOGY Hgb 12.9 g/dL 14.0 - 04/25 MH 18.0 [place] HEMATOLOGY MPV 7.2 fL 7.4 - 10.4 04/25 [place] HEMATOLOGY RDW 16.8 % 11.5 - 04/25 MH 14. [place] HEMATOLOGY Platelet 313 K/CMM 133 - 450 04/25 [place] HEMATOLOGY MCH 23.8 pg 27.0 - 04/25 MH 31.0 [place] HEMATOLOGY MCHC 34.0 g/dL 32.0 - 04/25 36.0 /2015 [place] HEMATOLOGY Hct 37.9 % 42.0 - 04/25 MH 54.0 /2015 [place] HEMATOLOGY MCV 70.1 fL 80.0 - 04/25 94.0 /2015 [place] HEMATOLOGY Lymphocytes 2.3 K/CMM 1.0 - 5.5 04/25 MH # /2016 [place] HEMATOLOGY Eosinophils 0.1 K/CMM 0.0 - 0.5 04/25 # /2015 [place] HEMATOLOGY Monocytes # 0.6 K/CMM 0.0 - 0.8 04/25 [place] HEMATOLOGY Basophils # 0.1 K/CMM 0.0 - 0.2 04/25 [place] HEMATOLOGY Microcyte 2+ None Seen 04/25 [place] *ABN* (04/25/16 6:17 PM) HEMATOLOGY Segs 69.2 % 45.0 - 04/25 MH 75.0 /2015 [place] HEMATOLOGY Segs-Bands # 7.1 K/CMM 1.5 - 8.1 04/25 [place] HEMATOLOGY Monocytes 6.1 % 2.0 - 12.0 04/25 [place] HEMATOLOGY Basophils 1.1 % 0.0 - 1.0 04/25 [place] HEMATOLOGY Eosinophils 1.1 % 0.0 - 4.0 04/25 [place] HEMATOLOGY Lymphocytes 22.5 % 20.0 - 04/25 40.0 /2016 [place] URINE AND UA WBC 0-2 /HPF None Seen 04/25 [facility] /HPF [place] URINE AND UA RBC 0-2 /HPF 0 - 2 04/25 STOOL [place] URINE AND UA Bacteria Occasional None Seen 04/25 STOOL /HPF /HPF [place] URINE AND UA Leuk Est Negative Negative 04/25 STOOL [place] (04/25/16 6:17 PM) URINE AND UA Sq Epi Occasional Few /LPF 04/25 STOOL /LPF /2015 [place] URINE AND UA pH 6.0 5.0 - 8.0 04/25 [place] URINE AND UA Protein Negative Negative 04/25 STOOL [place] (04/25/16 6:17 PM) URINE AND UA Glucose 250 mg/dL Negative 04/25 STOOL mg/dL /2015 [place] URINE AND UA Ketones Negative Negative 04/25 STOOL [place] *NA* (04/25/16 6:17 PM) URINE AND UA Bili Negative Negative 04/25 [place] *NA* (04/25/16 6:17 PM) URINE AND UA Blood Negative Negative 04/25 [place] (04/25/16 6:17 PM) URINE AND UA 0.2 EU/dL 0.1 - 1.0 04/25 [facility] Urobilinogen [place] URINE AND UA Nitrite Negative Negative 04/25 STOOL [place] (04/25/16 6:17 PM) URINE AND UA Color Yellow Yellow 04/25 [place] *NA* (04/25/16 6:17 PM) URINE AND UA Turbidity Clear Clear 04/25 [place] (04/25/16 6:17 PM) URINE AND UA Spec Grav 1.020 <=1.030 04/25 [facility] [place] Renal Stone Renal Stone EXAM: CT ABDOMEN AND PELVIS WITHOUT CONTRAST [facility] CT [facility] DATE: 04/25/2016 6:07 PM CDT Read by: Pernell Cruz MD Dictated Date/time: 04/25/16 19:09 Electronically Signed by: Pernell Cruz MD 04/25/16 19:13 FINAL REPORT INDICATION: Abdominal pain, acute. COMPARISON: CT dated 03/02/2016. TECHNIQUE: Helical CT imaging of the abdomen and pelvis performed from lung bases through the lesser trochanters without intravenous contrast. Axial, sagittal, and coronal multiplanar reconstructions were provided. IV contrast: None. CT Radiation Dose: CJS=[id number] mGy-cm FINDINGS: Evaluation of the solid organs is limited without intravenous contrast. LOWER CHEST: The lung bases are clear of focal consolidation, pleural effusions, and pneumothorax. The heart is unremarkable without evidence for a pericardial effusion. Coronary artery calcifications are partially visualized. LIVER: Diffuse fatty infiltration of the liver is identified. GALLBLADDER/BILIARY: Unremarkable. PANCREAS: Unremarkable SPLEEN: Unremarkable ADRENALS: Unremarkable KIDNEYS AND URETERS: A punctate nonobstructive stone is noted within the superior pole the right kidney on series 2 image 42. No obstructing stones are visualized. BLADDER: Unremarkable STOMACH: Unremarkable. BOWEL: Normal in course and caliber without focal wall thickening or evidence for obstruction. There is diverticulosis of the colon without surrounding inflammatory change to suggest diverticulitis. APPENDIX: The appendix is visualized and unremarkable. PELVIS: No pelvic masses are identified. PERITONEUM: No ascites or free air. LYMPH NODES: Unremarkable. VASCULAR: There is atherosclerotic calcification of the descending aorta without evidence for aneurysmal dilatation. Minimal fusiform dilatation of the infrarenal abdominal aorta is noted. OSSEOUS STRUCTURES: Mild degenerative changes are present within the spine. SOFT TISSUES: A fat-containing right inguinal hernia is visualized. IMPRESSION: 1. Punctate nonobstructive stone within the superior pole the right kidney. No obstructive stones or hydronephrosis is visualized on the current exam. 2. Diffuse fatty infiltration of the liver. 3. Diverticulosis of the colon without surrounding inflammatory change to suggest diverticulitis. 4. 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 SL: [id number] CARDIAC Troponin-I null 0.00 - 03/05 [facility] ENZYMES 0.40 /2015 [place] CARDIAC CK MB 0.8 ng/mL 0.5 - 3.6 03/05 MH ENZYMES /2016 [place] CARDIAC Total CK 60 unit/L - 191 03/05 MH ENZYMES /2016 [place] CARDIAC CK-MB INDEX 1.3 0.0 - 2.5 03/05 MH ENZYMES /2016 [place] CARDIAC Troponin-I null 0.00 - 03/05 MH ENZYMES 0.40 2016 [place] CARDIAC Total CK 66 unit/L - 191 03/05 MH ENZYMES /2016 [place] CARDIAC CK MB 0.6 ng/mL 0.5 - 3.6 03/05 MH ENZYMES /2016 [place] CARDIAC CK-MB INDEX 0.9 0.0 - 2.5 03/05 MH ENZYMES /2016 [place] CHEM PANEL eGFR 103 03/05 Result Comment: The eGFR is calculated using the CKD-EPI formula. In most young, healthy individuals the eGFR will be >90 mL/ min/1.73m2. The eGFR declines with age. An eGFR of 60-89 may be normal in MH mL/min/1.7 /2016 some populations, particularly the elderly, for whom the CKD-EPI formula has not been extensively validated. Use of the eGFR is not recommended in the following populations: [address] Individuals with unstable creatinine concentrations, including patients and those with serious co-morbid conditions. Patients with extremes in muscle mass or diet. The data above are obtained from the National Kidney Disease Education Program (NKDEP) which additionally recommends that when the eGFR is used in patients with extremes of body mass index for purposes of drug dosing, the eGFR should be multiplied by the estimated BMI. CHEM PANEL AGAP 12.0 meq/L 10.0 - 09 MH 20.0 [place] CHEM PANEL Globulin 4.4 g/dL 2.7 - 4.2 03/05 [place] CHEM PANEL B/C Ratio 14 6 - 25 03/05 [place] CHEM PANEL A/G Ratio 0.8 0.7 - 1.6 03/05 [place] CHEM PANEL Calcium Lvl 8.8 mg/dL 8.5 - 10.5 03/05 [place] CHEM PANEL Bili Total 0.6 mg/dL 0.2 - 1.3 03/05 [place] CHEM PANEL Total 7.8 g/dL 6.4 - 8.4 03/05 Protein [place] CHEM PANEL ASPARTATE 16 unit/L 0 - 37 03/05 [place] CHEM PANEL Alk Phos 128 unit/L 39 - 136 03/05 [place] CHEM PANEL Glucose Lvl 97 mg/dL 70 - 99 03/05 [place] CHEM PANEL Creatinine 0.88 mg/dL 0.50 - 03/05 MH Lvl 1.40 [place] CHEM PANEL BUN 12 mg/dL 7 - 22 03/05 [place] CHEM PANEL Sodium Lvl 138 meq/L 135 - 145 03/05 [place] CHEM PANEL ALANINE 32 unit/L 0 - 65 03/05 AMINOTRANS [place] RASE CHEM PANEL Albumin Lvl 3.4 g/dL 3.5 - 5.0 03/05 [place] CHEM PANEL Potassium 4.0 meq/L 3.5 - 5.1 03/05 MH Lvl [place] CHEM PANEL Chloride Lvl 105 meq/L 95 - 109 03/05 [place] CHEM PANEL CO2 25 meq/L 24 - 32 03/05 [place] HEMATOLOGY Platelet 294 K/CMM 133 - 450 03/05 [place] HEMATOLOGY MPV 7.4 fL 7.4 - 10.4 03/05 [place] HEMATOLOGY WBC X 10x3 10.0 K/CMM 3.7 - 10.4 03/05 [place] HEMATOLOGY RDW 16.6 % 11.5 - 03/05 MH 14.5 [place] HEMATOLOGY MCH 24.1 pg 27.0 - 03/05 MH 31.0 [place] HEMATOLOGY MCHC 33.4 g/dL 32.0 - 03/05 MH 36.0 [place] HEMATOLOGY MCV 72.2 fL 80.0 - 03/05 MH 94.0 [place] HEMATOLOGY Hct 38.1 % 42.0 - 03/05 MH 54.0 [place] HEMATOLOGY RBC X 10x6 5.28 M/CMM 4.70 - 03/05 MH 6.10 [place] HEMATOLOGY Hgb 12.7 g/dL 14.0 - 03/05 MH 18.0 [place] HEMATOLOGY Microcyte 1+ None Seen 03/05 [place] *ABN* (03/05/16 7:30 AM) HEMATOLOGY Basophils # 0.1 K/CMM 0.0 - 0.2 03/05 [place] HEMATOLOGY Monocytes # 0.7 K/CMM 0.0 - 0.8 03/05 [place] HEMATOLOGY Eosinophils 0.1 K/CMM 0.0 - 0.5 03/05 MH # /2015 [place] HEMATOLOGY Segs-Bands # 7.5 K/CMM 1.5 - 8.1 03/05 [place] HEMATOLOGY Lymphocytes 1.6 K/CMM 1.0 - 5.5 03/05 # /2015 [place] HEMATOLOGY Eosinophils 1.2 % 0.0 - 4.0 03/05 [place] HEMATOLOGY Basophils 0.6 % 0.0 - 1.0 03/05 [place] HEMATOLOGY Segs 75.1 % 45.0 - 03/05 MH 75.0 [place] HEMATOLOGY Monocytes 7.4 % 2.0 - 12.0 03/05 [place] HEMATOLOGY Lymphocytes 15.7 % 20.0 - 03/05 40.0 [place] Chest 1view Chest 1view Patient Name: ANNABEL MCCONNELL 03/05 - [facility] /2015 - [place] : 1970; Age: 45 years y/o Male MR: [id number] Read by: Jason Dozier MD Dictated Date/time: 03/05/16 07:56 Electronically Signed by: Jason Dozier MD 03/05/16 07:57 FINAL REPORT * CHEST, portable, 1 view HISTORY: Chest pain COMPARISON: 02/17/2016. A chest computed tomography scan from 03/02/2016 was reviewed. TECHNIQUE: A portable frontal radiograph of the chest was obtained. FINDINGS: There is slight chronic elevation the right hemidiaphragm. The lungs are clear. There are no pleural effusions. The heart is at the upper limits of normal in size. The cardiac size is slightly accentuated due to the portable technique. It is noted the prior chest computed tomography scan demonstrated coronary artery calcifications. The regional skeleton is unremarkable. IMPRESSION: 1. No active disease. SL: [id number] URINE AND UA RBC 0-2 /HPF 0 - 2 03/02 [place] URINE AND UA Sq Epi None Seen Few 03/02 [place] (03/02/16 8:22 AM) URINE AND UA WBC None Seen None Seen 03/02 [place] (03/02/16 8:22 AM) URINE AND UA pH 6.0 5.0 - 8.0 03/02 [place] URINE AND UA Protein Negative Negative 03/02 [facility] mg/dL mg/dL [place] URINE AND UA Glucose Negative Negative 03/02 [facility] mg/dL mg/dL [place] URINE AND UA Ketones Negative Negative 03/02 [facility] mg/dL mg/dL [place] URINE AND UA Bili Negative Negative 03/02 [place] *NA* (03/02/16 8:22 AM) URINE AND UA Color Yellow Yellow 03/02 [place] *NA* (03/02/16 8:22 AM) URINE AND UA Turbidity Clear Clear 03/02 [place] (03/02/16 8:22 AM) URINE AND UA Spec Grav 1.015 <=1.030 03/02 [place] URINE AND UA Blood Negative Negative 03/02 [place] (03/02/16 8:22 AM) URINE AND UA 0.2 EU/dL 0.1 - 1.0 03/02 [facility] Urobilinogen [place] URINE AND UA Nitrite Negative Negative 03/02 [place] (03/02/16 8:22 AM) URINE AND UA Leuk Est Negative Negative 03/02 STOOL [place] (03/02/16 8:22 AM) CHEM PANEL A/G Ratio 0.7 0.7 - 1.6 03/02 [place] CHEM PANEL Globulin 4.6 g/dL 2.7 - 4.2 03/02 [place] CHEM PANEL B/C Ratio 16 6 - 25 03/02 [place] CHEM PANEL AGAP 10.4 meq/L 10.0 - 03/02 MH 20.0 [place] CHEM PANEL Total 8.0 g/dL 6.4 - 8.4 03/02 Protein [place] CHEM PANEL Bili Total 0.3 mg/dL 0.2 - 1.3 03/02 [place] CHEM PANEL Calcium Lvl 8.7 mg/dL 8.5 - 10.5 03/02 [place] CHEM PANEL CO2 26 meq/L 24 - 32 03/02 [place] CHEM PANEL Chloride Lvl 106 meq/L 95 - 109 03/02 [place] CHEM PANEL Sodium Lvl 138 meq/L 135 - 145 03/02 [place] CHEM PANEL Potassium 4.4 meq/L 3.5 - 5.1 03/02 Lv [place] CHEM PANEL eGFR 83 03/02 Result Comment: The eGFR is calculated using the CKD-EPI formula. In most young, healthy individuals the eGFR will be >90 mL/ min/1.73m2. The eGFR declines with age. An eGFR of 60-89 may be normal in mL/min/1.2016 some populations, particularly the elderly, for whom the CKD-EPI formula has not been extensively validated. Use of the eGFR is not recommended in the following populations: [place] 3m2 Individuals with unstable creatinine concentrations, including patients and those with serious co-morbid conditions. Patients with extremes in muscle mass or diet. The data above are obtained from the National Kid[employer] Education Program (NKDEP) which additionally recommends that when the eGFR is used in patients with extremes of body mass index for purposes of drug dosing, the eGFR should be multiplied by the estimated BMI. CHEM PANEL ASPARTATE 13 unit/L 0 - 37 03/02 [place] CHEM PANEL Creatinine 1.07 mg/dL 0.50 - 03/02 MH Lvl 1.40 /2015 [place] CHEM PANEL BUN 17 mg/dL 7 - 22 03/02 [place] CHEM PANEL Glucose Lvl 106 mg/dL 70 - 99 03/02 [place] CHEM PANEL Alk Phos 127 unit/L 39 - 136 03/02 [place] CHEM PANEL Albumin Lvl 3.4 g/dL 3.5 - 5.0 03/02 [place] CHEM PANEL ALANINE 33 unit/L 0 - 65 03/02 AMINOTRANSFE /2015 [place] RASE CHEM PANEL Lipase Lvl 164 unit/L 73 - 393 03/02 [place] HEMATOLOGY Basophils # 0.1 K/CMM 0.0 - 0.2 03/02 [place] HEMATOLOGY Microcyte 1+ None Seen 03/02 [place] *ABN* (03/02/16 5:41 AM) HEMATOLOGY Monocytes 6.7 % 2.0 - 12.0 03/02 [place] HEMATOLOGY Lymphocytes 21.9 % 20.0 - 03/02 MH 40.0 [place] HEMATOLOGY Eosinophils 1.5 % 0.0 - 4.0 03/02 [place] HEMATOLOGY Segs 69.1 % 45.0 - 03/02 75.0 [place] HEMATOLOGY Monocytes # 0.8 K/CMM 0.0 - 0.8 03/02 [place] HEMATOLOGY Lymphocytes 2.6 K/CMM 1.0 - 5.5 03/02 MH # [place] HEMATOLOGY Eosinophils 0.2 K/CMM 0.0 - 0.5 03/02 MH [place] HEMATOLOGY Segs-Bands # 8.1 K/CMM 1.5 - 8.1 03/02 [place] HEMATOLOGY Basophils 0.8 % 0.0 - 1.0 03/02 [place] HEMATOLOGY WBC X 10x3 11.8 K/CMM 3.7 - 10.4 03/02 [place] HEMATOLOGY Hct 37.4 % 42.0 - 03/02 MH 54.0 [place] HEMATOLOGY RBC X 10x6 5.18 M/CMM 4.70 - 03/02 MH 6.10 [place] HEMATOLOGY Hgb 12.5 g/dL 14.0 - 03/02 MH 18.0 /2015 [place] HEMATOLOGY MCH 24.1 pg 27.0 - 03/02 MH 31.0 /2015 [place] HEMATOLOGY RDW 16.7 % 11.5 - 03/02 MH 14.5 /2015 [place] HEMATOLOGY MCHC 33.4 g/dL 32.0 - 03/02 MH 36.0 /2015 [place] HEMATOLOGY MCV 72.1 fL 80.0 - 03/02 94.0 /2015 [place] HEMATOLOGY MPV 7.7 fL 7.4 - 10.4 03/02 [place] HEMATOLOGY Platelet 303 K/CMM 133 - 450 03/02 [place] Chest/Abdom Chest/Abdome CT THORAX/ABDOMEN/PELVIS WITH IV CONTRAST WITH SAGITTAL AND CORONAL REFORMATTED IMAGES 03/02 - [facility] en/Pelvis w n/Pelvis w - [place] IV contrast IV contrast CT CT HISTORY: Back pain, right-sided abdominal pain. Read by: Garry Hendrickson MD Dictated Date/time: 03/02/16 07:27 Electronically Signed by: Garry Hendrickson MD 03/02/16 07:39 FINAL REPORT COMPARISON: Noncontrast CT abdomen/pelvis dated 03/02/2016 CHEST: Mild emphysematous change at the lung apices. No pneumonia, pleural effusion, or pneumothorax. No mediastinal mass, adenopathy, or fluid collection. Moderate coronary calcifications. No acute osseous abnormality in the thorax. ABDOMEN/PELVIS: Liver demonstrates hepatic steatosis. No focal liver lesion. No calcified gallstones. The spleen, pancreas, and adrenal glands appear normal. Tiny right renal calyceal calculus is noted. Tiny left renal cyst is noted. No hydronephrosis. Urinary bladder is unremarkable. Mild colonic diverticulosis without CT evidence of acute diverticulitis. Normal appendix. Normal small bowel. Moderate aortic calcification and small infrarenal abdomina l aortic aneurysm which measures up to 2.8 cm in diameter and measures 6.4 cm craniocaudad. No acute osseous abnormality in the abdomen or pelvis. IMPRESSION: 1. No acute abnormality. 2. Mild emphysema, hepatic steatosis, tiny right renal calculus, mild colonic diverticulosis, small abdominal aortic aneurysm. SL: [id number] Abdomen RUQ Abdomen RUQ ULTRASOUND ABDOMEN RIGHT UPPER QUADRANT 03/02 - [facility] US US /2015 - [place] HISTORY: Abdominal pain, acute; right flank pain Read by: Garry Hendrickson MD Dictated Date/time: 03/02/16 07:12 Electronically Signed by: Garry Hendrickson MD 03/02/16 07:14 FINAL REPORT COMPARISON: CT abdomen/pelvis dated 03/02/2016 TECHNIQUE: Grayscale and limited color sonographic evaluation of the right upper quadrant was performed with standard technique. FINDINGS: LIVER: The visualized liver shows normal contour, size, and morphology without focal lesions. There is diffusely increased hepatic echogenicity, compatible with hepatic steatosis. BILE DUCTS: The intrahepatic and extrahepatic bile ducts are not dilated with the common bile duct measuring 4 mm. GALLBLADDER: There are no gallstones, gallbladder sludge, pericholecystic fluid or wall thickening. PANCREAS: The pancreas body is normal, the head and tail are obscured by bowel gas. KIDNEY: The right kidney measures 12.0 x 6.0 x 6.7 cm. There is normal renal contour and morphology, with normal parenchymal echotexture. There is no hydronephrosis. INFERIOR VENA CAVA: Visualized portions appear normal. ASCITES: There is no right abdominal ascites. IMPRESSION: 1. Hepatic steatosis. 2. Otherwise normal abdominal ultrasound. SL: [id number] Renal Stone Renal Stone Patient Name: ANNABEL MCCONNELL 03/02 [facility] [address] CT /2015 [facility] : 1970; Age: 45 years y/o Male MR: [id number] Read by: John Paul Carrero MD Dictated Date/time: 03/02/16 05:55 Electronically Signed by: John Paul Carrero MD 03/02/16 05:59 FINAL REPORT Study: Renal Stone CT 03/02/2016 5:25 AM CDT Ordering Physician: Clinical Indication: Abdominal pain, acute; Comparison: None TECHNIQUE: Noncontrasted helical imaging was performed from the kidneys through the symphysis as a renal stone protocol. Multiplanar reformations are available. CT Radiation Dose: GHB=6888 mGy-cm FINDINGS: This examination is limited for the evaluation of solid organs and vascular structures due to withheld intravenous contrast -- the standard for urinary calculus assessment CT. KIDNEYS: Small 3 mm nonobstructive right renal calculus. Noncontrast appearance of the kidneys is otherwise normal. There is no hydronephrosis or hydroureter. No perinephric fluid. 10 mm indeterminate c ortical lesion in the left renal anterior midpole is stable, possibly a renal cyst as previously described. LOWER CHEST: The lung bases are clear. SOLID ORGANS: The visualized liver, spleen, pancreas, and adrenal glands are normal. BOWEL: No acute bowel pathology. Normal appendix is noted. No evidence for colitis or diverticulitis. PERITONEUM: No free intraperitoneal fluid or air. RETROPERITONEUM: No adenopathy. Infrarenal abdominal aorta is minimally aneurysmal at 31 mm as before. PELVIS: No pelvic mass. The urinary bladder is normal. MUSCULOSKELETAL: The skeleton is intact. IMPRESSION: Nonobstructive right renal calculus. No specific new or acute findings. SL: JONO- ELECTROLYTE Potassium 4.4 meq/L 3.5 - 5.1 02/18 [facility] S Lvl /2015 [place] ELECTROLYTE Chloride Lvl 104 meq/L 95 - 109 02/18 S [place] ELECTROLYTE Sodium Lvl 136 meq/L 135 - 145 02/18 [facility] S /2015 [place] ELECTROLYTE Glucose Lvl 147 mg/dL 70 - 99 02/18 MH S [place] ELECTROLYTE Creatinine 0.88 mg/dL 0.50 - 02/18 [facility] S Lvl 1.40 [place] ELECTROLYTE BUN 10 mg/dL 7 - 22 02/18 [facility] S /2015 [place] ELECTROLYTE eGFR 103 02/18 Result Comment: The eGFR is calculated using the CKD-EPI formula. In most young, healthy individuals the eGFR will be > 90 mL/min/1.73m2. The eGFR declines with age. An eGFR of 60-89 may be normal in mL/min/1.7 /2016 some populations, particularly the elderly, for whom the CKD-EPI formula has not been extensively validated. Use of the eGFR is not recommended in the following populations: [place] 3m2 Individuals with unstable creatinine concentrations, including patients and those with serious co-morbid conditions. Patients with extremes in muscle mass or diet. The data above are obtained from the National Kidney Disease Education Program (NKDEP) which additionally recommends that when the eGFR is used in patients with extremes of body mass index for purposes of drug dosing, the eGFR should be multiplied by the estimated BMI. ELECTROLYTE Calcium Lvl 8.8 mg/dL 8.5 - 10.5 02/18 [facility] S /2015 [place] ELECTROLYTE CO2 24 meq/L 24 - 32 02/18 [facility] S /2015 [place] ELECTROLYTE AGAP 12.4 meq/L 10.0 - 02/18 [facility] S 20.0 [place] HEMATOLOGY RDW 16.3 % 11.5 - 02/18 [facility] 14. [place] HEMATOLOG[facility] Platelet 273 K/CMM 133 - 450 02/18 [place] HEMAT[facility]Y MPV 7.5 fL 7.4 - 10.4 02/18 [place] HEMATOLOGY Hgb 12.8 g/dL 14.0 - 02/18 MH 18.0 [place] HEMATOLOGY RBC X 10x6 5.31 M/CMM 4.70 - 02/18 MH 6.10 [place] HEMATOLOGY WBC X 10x3 11.1 K/CMM 3.7 - 10.4 02/18 [place] HEMATOLOGY MCV 72.6 fL 80.0 - 02/18 MH 94.0 [place] HEMATOLOGY Hct 38.6 % 42.0 - 02/18 MH 54.0 [place] HEMATOLOGY MCH 24.1 pg 27.0 - 02/18 MH 31.0 [place] HEMATOLOGY MCHC 33.1 g/dL 32.0 - 02/18 MH 36.0 [place] CARDIAC Troponin-I null 0.00 - 02/17 [facility] ENZYMES 0.40 [place] HEMATOLOGY Monocytes 7.9 % 2.0 - 12.0 02/17 [place] HEMATOLOGY Lymphocytes 20.8 % 20.0 - 02/17 MH 40.0 [place] HEMATOLOGY Segs 69.1 % 45.0 - 02/17 MH 75.0 [place] HEMATOLOGY Lymphocytes 2.2 K/CMM 1.0 - 5.5 02/17 MH /2015 [place] HEMATOLOGY Monocytes # 0.8 K/CMM 0.0 - 0.8 02/17 [place] HEMATOLOGY Eosinophils 1.6 % 0.0 - 4.0 02/17 [place] HEMATOLOGY Segs-Bands # 7.5 K/CMM 1.5 - 8.1 02/17 [place] HEMATOLOGY Basophils 0.6 % 0.0 - 1.0 02/17 [place] HEMATOLOGY Microcyte 1+ None Seen 02/17 [place] *ABN* (02/18/16 5:20 AM) HEMATOLOGY Basophils # 0.1 K/CMM 0.0 - 0.2 02/17 [place] HEMATOLOGY Eosinophils 0.2 K/CMM 0.0 - 0.5 02/17 [facility] # /2015 [place] HEMATOLOGY RBC X 10x6 4.91 M/CMM 4.70 - 02/17 MH 6.10 [place] HEMATOLOGY WBC X 10x3 10.8 K/CMM 3.7 - 10.4 02/17 [place] HEMATOLOGY MCH 24.1 pg 27.0 - 02/17 MH 31.0 [place] HEMATOLOGY MCV 73.1 fL 80.0 - 02/17 MH 94.0 [place] HEMATOLOGY Hct 35.9 % 42.0 - 02/17 MH 54.0 [place] HEMATOLOGY Hgb 11.8 g/dL 14.0 - 02/17 MH 18.0 [place] HEMATOLOGY MPV 7.4 fL 7.4 - 10.4 02/17 [place] HEMATOLOGY RDW 16.3 % 11.5 - 02/17 14.5 [place] HEMATOLOGY MCHC 33.0 g/dL 32.0 - 02/17 MH 36.0 [place] HEMATOLOGY Platelet 270 K/CMM 133 - 450 02/17 [place] CARDIAC Troponin-I null 0.00 - 02/16 ENZYMES 0. [place] CHEM PANEL Procalcitoni null 0.00 - 02/16 n Lvl 0.10 [place] CARDIAC Troponin-I null 0.00 - 02/16 ENZYMES 0.40 [place] URINE AND UA Bacteria None Seen None Seen 02/16 STOOL /2015 [place] (02/17/16 6:27 AM) URINE AND UA RBC None Seen 0 - 2 02/16 [facility]OOL /2015 [place] (02/17/16 6:27 AM) URINE AND UA Mucus Few /LPF None Seen 02/16 [facility] /LPF /2015 [place] URINE AND UA Sq Epi Rare /LPF Few /LPF 02/16 ST[facility] [place] URINE AND UA WBC 0-2 /HPF None Seen 02/16 [facility] /HPF /2015 [place] URINE AND UA Leuk Est Negative Negative 02/16 STOOL /2015 [place] (02/17/16 6:27 AM) URINE AND UA 0.2 EU/dL 0.1 - 1.0 02/16 [facility] Urobilinogen [place] URINE AND UA Nitrite Negative Negative 02/16 STOOL [place] (02/17/16 6:27 AM) URINE AND UA Spec Grav 1.025 <=1.030 02/16 STOOL [place] URINE AND UA Turbidity Clear Clear 02/16 STOOL [place] (02/17/16 6:27 AM) URINE AND UA Color Yellow Yellow 02/16 STOOL [place] *NA* (02/17/16 6:27 AM) URINE AND UA Bili Negative Negative 02/16 STOOL [place] *NA* (02/17/16 6:27 AM) URINE AND UA Blood Negative Negative 02/16 STOOL [place] (02/17/16 6:27 AM) URINE AND UA Ketones Negative Negative 02/16 [facility] mg/dL mg/dL [place] URINE AND UA Glucose Negative Negative 02/16 [facility] mg/dL mg/dL [place] URINE AND UA pH 6.0 5.0 - 8.0 02/16 STOOL [place] URINE AND UA Protein Negative Negative 02/16 STOOL mg/dL mg/dL [place] CARDIAC CK-MB INDEX 1.6 0.0 - 2.5 02/16 ENZYMES [place] CARDIAC CK MB 0.9 ng/mL 0.5 - 3.6 02/16 ENZYMES [place] CARDIAC Total CK 58 unit/L 12 - 191 02/16 ENZYMES [place] CHEM PANEL eGFR 93 02/16 Result Comment: The eGFR is calculated using the CKD-EPI formula. In most young, healthy individuals the eGFR will be >90 mL/ min/1.73m2. The eGFR declines with age. An eGFR of 60-89 may be normal in mL/min/1.7 /2016 some populations, particularly the elderly, for whom the CKD-EPI formula has not been extensively validated. Use of the eGFR is not recommended in the following populations: [place] 3m2 Individuals with unstable creatinine concentrations, including patients and those with serious co-morbid conditions. Patients with extremes in muscle mass or diet. The data above are obtained from the National Kidney Disease Education Program (NKDEP) which additionally recommends that when the eGFR is used in patients with extremes of body mass index for purposes of drug dosing, the eGFR should be multiplied by the estimated BMI. CHEM PANEL ALANINE 33 unit/L 0 - 65 02/16 AMINOTRANS [place] RASE CHEM PANEL CO2 23 meq/L 24 - 32 02/16 [place] CHEM PANEL Calcium Lvl 8.8 mg/dL 8.5 - 10.5 02/16 [place] CHEM PANEL Potassium 4.0 meq/L 3.5 - 5.1 02/16 MH Lvl [place] CHEM PANEL Chloride Lvl 105 meq/L 95 - 109 02/16 [place] CHEM PANEL Creatinine 0.97 mg/dL 0.50 - 02/16 MH Lvl 1.40 [place] CHEM PANEL Glucose Lvl 103 mg/dL 70 - 99 02/16 [place] CHEM PANEL BUN 11 mg/dL 7 - 22 02/16 [place] CHEM PANEL Albumin Lvl 3.4 g/dL 3.5 - 5.0 02/16 [place] CHEM PANEL Alk Phos 128 unit/L 39 - 136 02/16 [place] CHEM PANEL Bili Total 0.5 mg/dL 0.2 - 1.3 02/16 [place] CHEM PANEL Sodium Lvl 139 meq/L 135 - 145 02/16 [place] CHEM PANEL AGAP 15.0 meq/L 10.0 - 02/16 MH 20.0 [place] CHEM PANEL B/C Ratio 11 6 - 25 02/16 [place] CHEM PANEL Total 8.0 g/dL 6.4 - 8.4 02/16 [place] CHEM PANEL ASPARTATE 16 unit/L 0 - 37 02/16 [place] CHEM PANEL Globulin 4.6 g/dL 2.7 - 4.2 02/16 [place] CHEM PANEL A/G Ratio 0.7 0.7 - 1.6 02/16 [place] HEMATOLOGY Microcyte 1+ None Seen 02/16 [place] *ABN* (02/17/16 5:50 AM) HEMATOLOGY Basophils # 0.1 K/CMM 0.0 - 0.2 02/16 [place] HEMATOLOGY Basophils 0.5 % 0.0 - 1.0 02/16 [place] HEMATOLOGY Lymphocytes 2.4 K/CMM 1.0 - 5.5 02/16 [facility] # /2015 [place] HEMATOLOGY Monocytes # 0.8 K/CMM 0.0 - 0.8 02/16 [place] HEMATOLOGY Eosinophils 0.1 K/CMM 0.0 - 0.5 02/16 [facility] # /2015 [place] HEMATOLOGY Segs-Bands # 8.7 K/CMM 1.5 - 8.1 02/16 [place] HEMATOLOGY Eosinophils 1.2 % 0.0 - 4.0 02/16 [place] HEMATOLOGY Segs 72.1 % 45.0 - 02/16 MH 75.0 [place] HEMATOLOGY Lymphocytes 19.8 % 20.0 - 02/16 MH 40.0 [place] HEMATOLOGY Monocytes 6.4 % 2.0 - 12.0 02/16 [place] HEMATOLOGY Platelet 327 K/CMM 133 - 450 02/16 [place] HEMATOLOGY MCH 24.1 pg 27.0 - 02/16 31.0 [place] HEMATOLOGY MCHC 33.3 g/dL 32.0 - 02/16 36.0 [place] HEMATOLOGY MPV 7.6 fL 7.4 - 10.4 02/16 [place] HEMATOLOGY RDW 16.3 % 11.5 - 02/16 14.5 [place] HEMATOLOGY Hgb 13.1 g/dL 14.0 - 02/16 18.0 [place] HEMATOLOGY Hct 39.5 % 42.0 - 02/16 54.0 [place] HEMATOLOGY WBC X 10x3 12.0 K/CMM 3.7 - 10.4 02/16 [place] HEMATOLOGY RBC X 10x6 5.45 M/CMM 4.70 - 02/16 MH 6.10 [place] HEMATOLOGY MCV 72.6 fL 80.0 - 02/16 94.0 [place] Renal Stone Renal Stone Patient Name: ANNABEL MCCONNELL 02/16 - [facility] [place] : 1970; Age: 45 years Male MR: [id number] Read by: Sundar Jeffrey MD Dictated Date/time: 02/17/16 05:53 Electronically Signed by: Sundar Jeffrey MD 02/17/16 06:01 FINAL REPORT Study: Renal Stone CT 02/17/2016 5:26 AM CDT Clinical Indication: Flank Pain. LA. STATED RT. FLANK PAIN AND UPPER CHEST PAIN STARTED THIS AM; HX OF KIDNEY STONES COMPARISON: None TECHNIQUE: Helical imaging was performed diaphragm through the symphysis with multiplanar reformations obtained without IV contrast. FINDINGS: LOWER CHEST: The lung bases are clear. Mild cardiomegaly. ABDOMEN: No free air. LIVER: The liver measures 22.4 cm CC. BILIARY TREE: Normal. GALLBLADDER: Normal. PANCREAS: Normal. SPLEEN: Normal. ADRENALS: Normal. KIDNEYS: Right renal stone measures 3 to 3.5 mm, 285 [place] units. Mild right perinephric stranding. Small left presumed renal cyst is incompletely evaluated. PELVIS: No ureterolithiasis. The bladder is normally distended. Small fat- containing right inguinal hernia. BOWEL: No small bowel obstruction. Moderate constipation, normal appendix. Mild sigmoid diverticulosis. PERITONEUM: No free intraperitoneal fluid. RETROPERITONEUM: Atheromatous aortic calcification, with the infrarenal aorta measuring 3.3 cm. MUSCULOSKELETAL: Mild thoracic spondylosis. IMPRESSION: 1. Right nephrolithiasis. 2. Right minimal perinephric stranding, correlation for pyelonephritis is recommended. 3. Hepatomegaly. 4. Infrarenal aortic aneurysm. 5. Right fat-containing inguinal hernia. 6. Presumed small left renal cyst. 7. Cardiomegaly. SL: [id number] Chest 1view Chest 1view Patient Name: ANNABEL MCCONNELL 02/16 [facility] DX DX [place] : 1970; Age: 45 years y/o Male MR: [id number] Read by: Jaun Guillermo MD Dictated Date/time: 02/17/16 05:48 Electronically Signed by: Jaun Guillermo MD 02/17/16 05:49 FINAL REPORT Study: Chest 1view DX 02/17/2016 5:19 AM CDT Ordering Physician: Barber Lazar DO Comparison: None Clinical Indication: Chest pain; A few scattered interstitial opacities and granulomatous calcifications are noted bilaterally, nonspecific, likely chronic. Cardiac silhouette is mild to moderately enlarged. There is no acute consolida tion or pleural fluid collection noted. Marginal spurring is noted at the thoracic spine. Degenerative changes at the shoulders bilaterally. IMPRESSION: No acute cardiopulmonary process. SL: JUSTYNA Vital Signs Vital Sign Value Date Comments Source Respitory Rate 18 05/17/2016 [facility] Temperature Oral (F) 98.1 F 05/17/2016 [facility] Heart Rate 72 05/17/2016 [facility] Systolic (mm Hg) 116 05/17/2016 [facility] Diastolic (mm Hg) 76 05/17/2016 [facility] Weight 128.636 05/17/2016 [facility] Temperature Oral (F) 97.6 F 05/17/2016 [facility] Respitory Rate 16 05/17/2016 [facility] Heart Rate 79 05/17/2016 [facility] Systolic (mm Hg) 100 05/17/2016 [facility] Diastolic (mm Hg) 69 05/17/2016 [facility] Respitory Rate 16 05/06/2016 [facility] Systolic (mm Hg) 134 05/06/2016 [facility] Diastolic (mm Hg) 84 05/06/2016 [facility] Heart Rate 61 05/06/2016 [facility] Temperature Oral (F) 97.9 F 05/06/2016 [facility] Respitory Rate 14 05/06/2016 [facility] Temperature Oral (F) 97.4 F 05/06/2016 [facility] Systolic (mm Hg) 117 05/06/2016 [facility] Diastolic (mm Hg) 77 05/06/2016 [facility] Respitory Rate 18 05/06/2016 [facility] Heart Rate 56 05/06/2016 [facility] Systolic (mm Hg) 120 05/06/2016 [facility] Diastolic (mm Hg) 77 05/06/2016 [facility] Heart Rate 62 05/06/2016 [facility] Temperature Oral (F) 97.9 F 05/06/2016 [facility] Weight 131.7 05/06/2016 [facility] BMI Calculated 41.66 05/06/2016 [facility] Height 177.8 cm 05/06/2016 [facility] Weight 127.273 05/05/2016 [facility] Systolic (mm Hg) 118 04/26/2016 [facility] Diastolic (mm Hg) 64 04/26/2016 [facility] Respitory Rate 18 04/26/2016 [facility] Heart Rate 78 04/26/2016 [facility] Temperature Oral (F) 97.4 F 04/26/2016 [facility] Weight 128.182 04/25/2016 [facility] BMI Calculated 40.55 04/25/2016 [facility] Height 177.8 cm 04/25/2016 [facility] Respitory Rate 18 04/25/2016 [facility] Temperature Oral (F) 97.2 F 04/25/2016 [facility] Heart Rate 80 04/25/2016 [facility] Systolic (mm Hg) 137 04/25/2016 [facility] Diastolic (mm Hg) 85 04/25/2016 [facility] Temperature Oral (F) 98.7 F 03/05/2016 [facility] Respitory Rate 16 03/05/2016 [facility] Systolic (mm Hg) 127 03/05/2016 [facility] Diastolic (mm Hg) 68 03/05/2016 [facility] Respitory Rate 16 03/05/2016 [facility] Systolic (mm Hg) 124 03/05/2016 [facility] Diastolic (mm Hg) 76 03/05/2016 [facility] Systolic (mm Hg) 127 03/05/2016 [facility] Diastolic (mm Hg) 77 03/05/2016 [facility] Height 177.8 cm 03/05/2016 [facility] BMI Calculated 40.83 03/05/2016 [facility] Weight 129.091 03/05/2016 [facility] Heart Rate 62 03/05/2016 [facility] Temperature Oral (F) 98.9 F 03/05/2016 [facility] Respitory Rate 18 03/05/2016 [facility] Temperature Oral (F) 98.2 F 03/02/2016 [facility] Heart Rate 58 03/02/2016 [facility] Respitory Rate 16 03/02/2016 [facility] Systolic (mm Hg) 120 03/02/2016 [facility] Diastolic (mm Hg) 66 03/02/2016 [facility] Heart Rate 50 03/02/2016 [facility] Weight 128.636 03/02/2016 [facility] Temperature Oral (F) 98.0 F 03/02/2016 [facility] Respitory Rate 18 03/02/2016 [facility] Systolic (mm Hg) 149 03/02/2016 [facility] Diastolic (mm Hg) 87 03/02/2016 [facility] Heart Rate 69 03/02/2016 [facility] Systolic (mm Hg) 107 02/20/2016 [facility] Diastolic (mm Hg) 66 02/20/2016 [facility] Temperature Oral (F) 98.0 F 02/20/2016 [facility] Respitory Rate 17 02/20/2016 [facility] Heart Rate 81 02/20/2016 [facility] Heart Rate 73 02/19/2016 [facility] Respitory Rate 17 02/19/2016 [facility] Temperature Oral (F) 97.8 F 02/19/2016 [facility] Systolic (mm Hg) 96 02/19/2016 [facility] Diastolic (mm Hg) 63 02/19/2016 [facility] Systolic (mm Hg) 128 02/19/2016 [facility] Diastolic (mm Hg) 84 02/19/2016 [facility] Heart Rate 82 02/19/2016 [facility] Temperature Oral (F) 97.9 F 02/19/2016 [facility] Respitory Rate 17 02/19/2016 [facility] Height 177.8 cm 02/17/2016 [facility] BMI Calculated 40.98 02/17/2016 [facility] Weight 129.545 02/17/2016 [facility] Weight 129.545 02/17/2016 [facility] BMI Calculated 40.98 02/17/2016 [facility] Height 177.8 cm 02/17/2016 [facility] Encounters Location Location Encounter Encounter Reason Attending ADM DC Status Source Details Type Number For Provider Date Date [facility] [id number] Osmar 02/16 02/19 [facility] Roberts /2015 [facility] [id number] Fei 03/02 03/02 [facility] Partida /2015 [facility] [id number] Rachel Platt 03/05 03/05 [facility] /2015 [facility] [id number] Agustin 04/25 04/26 [facility]dy Lopez /2015 [facility] [id number] Geronimo 05/05 05/07 [facility]dy Dupont /2015 [facility] [id number] Karey 05/17 05/18 Freddy Zuleta /2015 [facility] Procedures Procedure Code Date Perfomer Comments Source Catheterization of [id number] [facility] right heart Lithotripsy [id number] [facility] Placement of stent in [id number] R RCA 100% [facility] cardiac blockage conduit<sup>1</sup>
--- OUTSIDE RECORDS SUMMARY | 2017-12-25 12:58 | XMS REPORT | Summary of Care ---
:1970 Author Organization [facility] Address [address] [place] [address]- Encounter HQ Dianna_rosa(FIN) [id number] Date(s): 02/17/16 - 02/19/16 [facility] [id number] [place] [phone] Discharge Disposition: Home or Self Care Attending Physician: Osmar Roberts MD PHD Admitting Physician: Osmar Roberts MD PHD Vital Signs Most recent to oldest 1 2 3 [Reference Range]: Height 177.8 cm 177.8 cm (02/17/16 8:19 AM) (02/17/16 5:16 AM) Temperature Oral [96.4-99.1 98.0 DegF 97.8 DegF 97.9 DegF DegF] (02/19/16 8:05 PM) (02/19/16 3:37 PM) (02/19/16 12:00 PM) Blood Pressure [90-140/60-90 107/66 mmHg 96/63 mmHg 128/84 mmHg mmHg] (02/19/16 8:05 PM) (02/19/16 3:37 PM) (02/19/16 12:00 PM) Respiratory Rate [14-20 BRMIN] 17 BRMIN 17 BRMIN 17 BRMIN (02/19/16 8:05 PM) (02/19/16 3:37 PM) (02/19/16 12:00 PM) Peripheral Pulse Rate [60-100 81 bpm 73 bpm 82 bpm bpm] (02/19/16 8:05 PM) (02/19/16 3:37 PM) (02/19/16 12:00 PM) Weight 129.545 kg 129.545 kg (02/17/16 8:19 AM) (02/17/16 5:16 AM) Body Mass Index 40.98 m2 40.98 m2 (02/17/16 8:19 AM) (02/17/16 5:16 AM) Problem List Condition Effective Dates Status Health Status Informant Abdominal aortic aneurysm(Confirmed) Resolved Congestive heart failure(Confirmed)1 Resolved Diabetes(Confirmed) Resolved Hypercholesteremia(Confirmed) Resolved Hypertension(Confirmed) Resolved Kidney stone(Confirmed) Resolved Heart attack(Confirmed)2 Resolved Bundle branch block, Resolved right(Confirmed) Sleep apnea(Confirmed) Resolved 12L fluid restriction/[id number] Allergies, Adverse Reactions, Alerts Substance Reaction Severity Status beta blockers Active Flomax Active Stadol Active traMADol Active Medications aspirin 81 mg tablet, enteric coated 81 mg=1 tab, PO, Daily, # 90 tab, 3 Refill(s) Start Date: 02/17/16 Status: Orderedaspirin 81 mg tablet, enteric coated 81 mg, 1 tab, Route: PO, Drug form: ECTAB, Daily, Dosing Weight 129.545, kg, Start date: 02/17/16 9:54:00 CDT, Duration: 30 day, Stop date: 03/18/16 9:00:00 CDT Notes: Do not crush or chew.(Same As: Ecotrin) Start Date: 02/17/16 Stop Date: 02/19/16 Status: DiscontinuedcefTRIAXone 1 gm, Route: IVPB, Drug form: PDR/INJ, ONCE, Dosing Weight 129.545, kg, Priority : STAT, Start date: 02/17/16 7:01:00 CDT, Stop date: 02/17/16 7:01:00 CDT Start Date: 02/17/16 Stop Date: 02/17/16 Status: CompletedDilaudid 0.5 mg, Route: IVP, ONCE, Dosing Weight 129.545, kg, Priority: STAT, Start date : 02/17/16 5:32:00 CDT, Stop date: 02/17/16 5:32:00 CDT Start Date: 02/17/16 Stop Date: 02/17/16 Status: CompletedDilaudid 0.5 mg, Route: IVP, ONCE, Dosing Weight 129.545, kg, Priority: STAT, Start date : 02/17/16 6:28:00 CDT, Stop date: 02/17/16 6:28:00 CDT Start Date: 02/17/16 Stop Date: 02/17/16 Status: Completedfurosemide 20 mg oral tablet 20 mg=1 tab, PO, Daily, # 30 tab, 0 Refill(s) Start Date: 02/17/16 Status: OrderedhydrOXYzine hydrochloride 25 mg oral tablet 25 mg=1 tab, PO, Bedtime, PRN Sleep, # 30 tab, 0 Refill(s) Start Date: 02/17/16 Stop Date: 02/19/16 Status: DiscontinuedImdur 30 mg, 1 tab, Route: PO, Drug form: ERTAB, QAM, Dosing Weight 129.545, kg, Start date: 02/17/16 9:54:00 CDT, Duration: 30 day, Stop date: 03/18/16 9:00:00 CDT Notes: (Same as:Imdur)"Do Not Crush" Take on empty stomach/ full glass of water. Do not crush Start Date: 02/17/16 Stop Date: 02/19/16 Status: DiscontinuedImdur 30 mg oral tablet, extended release 30 mg=1 tab, PO, QAM, # 30 tab, 0 Refill(s) Start Date: 02/17/16 Status: OrderedKlor-Con M20 oral tablet, extended release 20 mEq=1 tab, PO, Daily, # 90 tab, 1 Refill(s) Start Date: 02/17/16 Status: OrderedLipitor 80 mg, 2 tab, Route: PO, Drug form: TAB, Bedtime, Dosing Weight 129.545, kg, Start date: 02/17/16 21:00:00 CDT, Duration: 30 day, Stop date: 03/17/16 21:00: 00 CDT Notes: (Same as: Lipitor) Start Date: 02/17/16 Stop Date: 02/19/16 Status: DiscontinuedLipitor 80 mg oral tablet 80 mg=1 tab, PO, Bedtime, # 30 tab, 0 Refill(s) Start Date: 02/17/16 Status: Orderedlisinopril 2.5 mg, 0.5 tab, Route: PO, Drug form: TAB, Daily, Dosing Weight 129.545, kg, Start date: 02/17/16 9:55:00 CDT, Duration: 30 day, Stop date: 03/18/16 9:00:00 CDT Notes: (Same as: Prinivdeshawn Zestril) Start Date: 02/17/16 Stop Date: 02/19/16 Status: Discontinuedlisinopril 2.5 mg oral tablet 2.5 mg=1 tab, PO, Daily, # 30 tab, 0 Refill(s) Start Date: 02/17/16 Status: OrderedLovenox 40 mg, 0.4 mL, Route: SUB-Q, Drug form: INJ, [id number], Dosing Weight 129.545, kg , Start date: 02/17/16 10:00:00 CDT, Duration: 30 day, Stop date: 03/17/16 10:00 :00 CDT Notes: (Same as: Lovenox) Start Date: 02/17/16 Stop Date: 02/19/16 Status: DiscontinuedmetFORMIN-repaglinide 500 mg-1 mg oral tablet 1 tab, PO, BID, # 60 tab, 0 Refill(s) Start Date: 02/17/16 Status: Orderedmorphine Sulfate 2 mg, 1 mL, Route: IVP, Drug form: INJ, Q4H, Dosing Weight 129.545, kg, PRN Pain Score 7-10, Start date: 02/17/16 11:54:00 CDT, Duration: 30 day, Stop date : 03/18/16 11:53:00 CDT Notes: (Same as:MORPhine Sulfate) Start Date: 02/17/16 Stop Date: 02/19/16 Status: DiscontinuedNitrostat 0.4 mg sublingual tablet 0.4 mg=1 tab, SL, Q5Min, PRN Chest Pain, # 100 tab, 0 Refill(s) Start Date: 02/17/16 Stop Date: 02/19/16 Status: DiscontinuedNitrostat 0.4 mg sublingual tablet 0.4 mg, 1 tab, Route: SL, Drug form: TAB, Q5Min, Dosing Weight 129.545, kg, PRN Chest Pain, Start date: 02/17/16 9:25:00 CDT, Duration: 30 day, Stop date: 03/18 9:24:00 CDT Notes: (Same as:Nitroquick, Nitrostat)"Do Not Crush" Sublingual tablet Start Date: 02/17/16 Stop Date: 02/19/16 Status: DiscontinuedPlavix 75 mg, 1 tab, Route: PO, Drug form: TAB, Daily, Dosing Weight 129.545, kg, Start date: 02/17/16 9:54:00 CDT, Duration: 30 day, Stop date: 03/18/16 9:00:00 CDT Notes: (Same As: Plavix) Start Date: 02/17/16 Stop Date: 02/19/16 Status: DiscontinuedPlavix 75 mg oral tablet 75 mg=1 tab, PO, Daily, # 30 tab, 0 Refill(s) Start Date: 02/17/16 Status: Orderedpneumococcal 23-valent vaccine 0.5 mL, Route: IM, Drug Form: INJ, Daily, Start date: 02/17/16 9:00:00 CDT, Duration: 1 doses or times, Stop date: 02/17/16 9:00:00 CDT Notes: (Same as: Pneumovax 23) Refrigerate Start Date: 02/17/16 Stop Date: 02/17/16 Status: CompletedProtonix 40 mg, 1 tab, Route: PO, Drug form: ECTAB, Before Breakfast, Dosing Weight 129.545, kg, Start date: 02/18/16 7:30:00 CDT, Duration: 30 day, Stop date: 7:30:00 CDT Notes: Tablet should not be chewed or crushed.(Same as: Protonix) Start Date: 02/18/16 Stop Date: 02/19/16 Status: DiscontinuedProtonix 40 mg oral enteric coated tablet 40 mg=1 tab, PO, Daily, # 30 tab, 0 Refill(s) Start Date: 02/17/16 Status: OrderedSaline Flush 0.9% 10 mL, Route: IVP, Drug Form: INJ, kg, PRN, PRN Line Flush, Start date: 5:19:00 CDT, Duration: 30 day, Stop date: 03/18/16 5:18:00 CDT Notes: (Same as: BD Posiflush) Start Date: 02/17/16 Stop Date: 02/17/16 Status: DiscontinuedTylenol with Codeine #3 oral tablet 1 tab, PO, Q6H, PRN Pain, # 28 tab, 0 Refill(s) Start Date: 02/19/16 Stop Date: 02/24/16 Status: OrderedTylenol with Codeine #3 oral tablet 1 tab, PO, Q6H, PRN Pain, # 28 tab, 0 Refill(s) Start Date: 02/17/16 Stop Date: 02/19/16 Status: DiscontinuedXanax 1 mg oral tablet 1 mg, 1 tab, Route: PO, Drug form: TAB, Q8H, Dosing Weight 129.545, kg, PRN Anxiety, Start date: 02/17/16 9:23:00 CDT, Duration: 30 day, Stop date: 9:22:00 CDT Notes: With food or milk(Same as: Xanax) Start Date: 02/17/16 Stop Date: 02/19/16 Status: DiscontinuedXanax 1 mg oral tablet 1 mg=1 tab, PO, Q8H, PRN Anxiety, 0 Refill(s) Start Date: 02/17/16 Status: OrderedZofran 4 mg, Route: IVP, Drug form: INJ, ONCE, Dosing Weight 129.545, kg, Priority: STAT, Start date: 02/17/16 5:32:00 CDT, Stop date: 02/17/16 5:32:00 CDT Start Date: 02/17/16 Stop Date: 02/17/16 Status: CompletedZofran ODT 4 mg, 1 tab, Route: PO, Drug form: TABDIS, Q12H, Dosing Weight 129.545, kg, PRN Nausea, Start date: 02/17/16 9:25:00 CDT, Duration: 30 day, Stop date: 03/18/16 9:24:00 CDT Notes: (Same as: Zofran ODT) Start Date: 02/17/16 Stop Date: 02/19/16 Status: DiscontinuedZofran ODT 4 mg oral tablet, disintegrating 4 mg=1 tab, PO, Q12H, PRN Nausea, 0 Refill(s) Start Date: 02/17/16 Stop Date: 02/19/16 Status: Discontinued Results ELECTROLYTES Most recent to oldest [Reference Range]: 1 2 3 Sodium Lvl [135-145 mEq/L] 136 mEq/L 139 mEq/L (02/19/16 9:27 AM) (02/17/16 5:50 AM) Potassium Lvl [3.5-5.1 mEq/L] 4.4 mEq/L 4.0 mEq/L (02/19/16 9:27 AM) (02/17/16 5:50 AM) Chloride Lvl [95-109 mEq/L] 104 mEq/L 105 mEq/L (02/19/16 9:27 AM) (02/17/16 5:50 AM) CO2 [24-32 mEq/L] 24 mEq/L 23 mEq/L (02/19/16 9:27 AM) *LOW* (02/17/16 5:50 AM) AGAP [10.0-20.0 mEq/L] 12.4 mEq/L 15.0 mEq/L (02/19/16 9:27 AM) (02/17/16 5:50 AM) CHEM PANEL Most recent to oldest [Reference Range]: 1 2 3 Creatinine Lvl [0.50-1.40 mg/dL] 0.88 mg/dL 0.97 mg/dL (02/19/16 9:27 AM) (02/17/16 5:50 AM) eGFR 103 mL/min/1.73m2 1 93 mL/min/1.73m2 2 *NA* *NA* (02/19/16 9:27 AM) (02/17/16 5:50 AM) BUN [7-22 mg/dL] 10 mg/dL 11 mg/dL (02/19/16 9:27 AM) (02/17/16 5:50 AM) B/C Ratio [6-25] 11 (02/17/16 5:50 AM) Glucose Lvl [70-99 mg/dL] 147 mg/dL 103 mg/dL *HI* *HI* (02/19/16 9:27 AM) (02/17/16 5:50 AM) Total Protein [6.4-8.4 g/dL] 8.0 g/dL (02/17/16 5:50 AM) Albumin Lvl [3.5-5.0 g/dL] 3.4 g/dL *LOW* (02/17/16 5:50 AM) Globulin [2.7-4.2 g/dL] 4.6 g/dL *HI* (02/17/16 5:50 AM) A/G Ratio [0.7-1.6] 0.7 (02/17/16 5:50 AM) Calcium Lvl [8.5-10.5 mg/dL] 8.8 mg/dL 8.8 mg/dL (02/19/16 9:27 AM) (02/17/16 5:50 AM) ALT [0-65 unit/L] 33 unit/L (02/17/16 5:50 AM) AST [0-37 unit/L] 16 unit/L (02/17/16 5:50 AM) Alk Phos [39-136 unit/L] 128 unit/L (02/17/16 5:50 AM) Bili Total [0.2-1.3 mg/dL] 0.5 mg/dL (02/17/16 5:50 AM) Procalcitonin Lvl [0.00-0.10 ng/mL] <0.05 ng/mL (02/17/16 4:41 PM) 1Result Comment: The eGFR is calculated using the CKD-EPI formula. In most young , healthy individualsthe eGFR will be >90 mL/min/1.73m2. The eGFR declines with age. An eGFR of 60-89 may be normal in some populations, particularly the elderly, for whom the CKD-EPI formula has not been extensively validated. Use of the eGFR is not recommended in the following populations: Individuals with unstable creatinine concentrations, including patients and those with serious co-morbid conditions. Patients with extremes in muscle mass or diet. The data above are obtained from the National Kidney Disease Education Program ( NKDEP) which additionally recommends that when the eGFR is used in patients with extremes of body mass index for purposesof drug dosing, the eGFR should be multiplied by the estimated BMI.2Result Comment: The eGFR is calculated using the CKD-EPI formula. In most young, healthy individualsthe eGFR will be >90 mL/ min/1.73m2. The eGFR declines with age. An eGFR of 60-89 may be normal in some populations, particularly the elderly, for whom the CKD-EPI formula has not been extensively validated. Use of the eGFR is not recommended in the following populations: Individuals with unstable creatinine concentrations, including patients and those with serious co-morbid conditions. Patients with extremes in muscle mass or diet. The data above are obtained from the National Kidney Disease Education Program ( NKDEP) which additionally recommends that when the eGFR is used in patients with extremes of body mass index for purposesof drug dosing, the eGFR should be multiplied by the estimated BMI.CARDIAC ENZYMES Most recent to oldest 1 2 3 [Reference Range]: Total CK [12-191 unit/L] 58 unit/L (02/17/16 5:50 AM) CK MB [0.5-3.6 ng/mL] 0.9 ng/mL (02/17/16 5:50 AM) CK MB Index [0.0-2.5] 1.6 (02/17/16 5:50 AM) Troponin-I [0.00-0.40 ng/mL] <0.02 ng/mL <0.02 ng/mL <0.02 ng/mL (02/18/16 5:20 AM) (02/17/16 4:41 PM) (02/17/16 10:34 AM) URINE AND STOOL Most recent to oldest [Reference Range]: 1 2 3 UA Turbidity [Clear] Clear (02/17/16 6:27 AM) UA Color [Yellow] Yellow *NA* (02/17/16 6:27 AM) UA pH [5.0-8.0] 6.0 (02/17/16 6:27 AM) UA Spec Grav [<=1.030] 1.025 (02/17/16 6:27 AM) UA Glucose [Negative mg/dL] Negative mg/dL (02/17/16 6:27 AM) UA Blood [Negative] Negative (02/17/16 6:27 AM) UA Ketones [Negative mg/dL] Negative mg/dL *NA* (02/17/16 6:27 AM) UA Protein [Negative mg/dL] Negative mg/dL (02/17/16 6:27 AM) UA Urobilinogen [0.1-1.0 EU/dL] 0.2 EU/dL (02/17/16 6:27 AM) UA Bili [Negative] Negative *NA* (02/17/16 6:27 AM) UA Leuk Est [Negative] Negative (02/17/16 6:27 AM) UA Nitrite [Negative] Negative (02/17/16 6:27 AM) UA WBC [None Seen /HPF] 0-2 /HPF (02/17/16 6:27 AM) UA RBC [0-2] None Seen (02/17/16 6:27 AM) UA Bacteria [None Seen] None Seen (02/17/16 6:27 AM) UA Sq Epi [Few /LPF] Rare /LPF (02/17/16 6:27 AM) UA Mucus [None Seen /LPF] Few /LPF (02/17/16 6:27 AM) HEMATOLOGY Most recent to oldest 1 2 3 [Reference Range]: WBC [3.7-10.4 K/CMM] 11.1 K/CMM 10.8 K/CMM 12.0 K/CMM *HI* *HI* *HI* (02/19/16 9:27 AM) (02/18/16 5:20 AM) (02/17/16 5:50 AM) RBC [4.70-6.10 M/CMM] 5.31 M/CMM 4.91 M/CMM 5.45 M/CMM (02/19/16 9:27 AM) (02/18/16 5:20 AM) (02/17/16 5:50 AM) Hgb [14.0-18.0 g/dL] 12.8 g/dL 11.8 g/dL 13.1 g/dL *LOW* *LOW* *LOW* (02/19/16 9:27 AM) (02/18/16 5:20 AM) (02/17/16 5:50 AM) Hct [42.0-54.0 %] 38.6 % 35.9 % 39.5 % *LOW* *LOW* *LOW* (02/19/16 9:27 AM) (02/18/16 5:20 AM) (02/17/16 5:50 AM) MCV [80.0-94.0 fL] 72.6 fL 73.1 fL 72.6 fL *LOW* *LOW* *LOW* (02/19/16 9:27 AM) (02/18/16 5:20 AM) (02/17/16 5:50 AM) MCH [27.0-31.0 pg] 24.1 pg 24.1 pg 24.1 pg *LOW* *LOW* *LOW* (02/19/16 9:27 AM) (02/18/16 5:20 AM) (02/17/16 5:50 AM) MCHC [32.0-36.0 g/dL] 33.1 g/dL 33.0 g/dL 33.3 g/dL (02/19/16 9:27 AM) (02/18/16 5:20 AM) (02/17/16 5:50 AM) RDW [11.5-14.5 %] 16.3 % 16.3 % 16.3 % *HI* *HI* *HI* (02/19/16 9:27 AM) (02/18/16 5:20 AM) (02/17/16 5:50 AM) Platelet [133-450 K/CMM] 273 K/CMM 270 K/CMM 327 K/CMM (02/19/16 9:27 AM) (02/18/16 5:20 AM) (02/17/16 5:50 AM) MPV [7.4-10.4 fL] 7.5 fL 7.4 fL 7.6 fL (02/19/16 9:27 AM) (02/18/16 5:20 AM) (02/17/16 5:50 AM) Segs [45.0-75.0 %] 69.1 % 72.1 % (02/18/16 5:20 AM) (02/17/16 5:50 AM) Lymphocytes [20.0-40.0 %] 20.8 % 19.8 % (02/18/16 5:20 AM) *LOW* (02/17/16 5:50 AM) Monocytes [2.0-12.0 %] 7.9 % 6.4 % (02/18/16 5:20 AM) (02/17/16 5:50 AM) Eosinophils [0.0-4.0 %] 1.6 % 1.2 % (02/18/16 5:20 AM) (02/17/16 5:50 AM) Basophils [0.0-1.0 %] 0.6 % 0.5 % (02/18/16 5:20 AM) (02/17/16 5:50 AM) Segs-Bands # [1.5-8.1 K/CMM] 7.5 K/CMM 8.7 K/CMM (02/18/16 5:20 AM) *HI* (02/17/16 5:50 AM) Lymphocytes # [1.0-5.5 2.2 K/CMM 2.4 K/CMM K/CMM] (02/18/16 5:20 AM) (02/17/16 5:50 AM) Monocytes # [0.0-0.8 K/CMM] 0.8 K/CMM 0.8 K/CMM (02/18/16 5:20 AM) (02/17/16 5:50 AM) Eosinophils # [0.0-0.5 0.2 K/CMM 0.1 K/CMM K/CMM] (02/18/16 5:20 AM) (02/17/16 5:50 AM) Basophils # [0.0-0.2 K/CMM] 0.1 K/CMM 0.1 K/CMM (02/18/16 5:20 AM) (02/17/16 5:50 AM) Microcyte [None Seen] 1+ 1+ *ABN* *ABN* (02/18/16 5:20 AM) (02/17/16 5:50 AM) Immunizations Not Given Vaccine Date Status Refusal Reason pneumococcal 23-valent vaccine 02/17/16 Not Given Patient Refuses Procedures Procedure Date Related Diagnosis Body Site Catheterization of right heart Lithotripsy Placement of stent in cardiac conduit1 1R RCA 100% blockage Social History Social History Type Response Smoking Status Former smoker; Exposure to Tobacco Smoke None; Cigarette Smoking Last 365 Days No; Reg Smoking Cessation Counseling No Assessment and Plan Extracted from: Title: Discharge Summary * Author: Analilia Medellin MD Date: 02/19/16 Discharge Plan Discharge Summary Plan Discharge Status: improved. Discharge instructions given: to patient. Discharge disposition: discharge to home (into the care of family member, self care). Prescriptions: continue same medications, reviewed with patient, written and given to patient. Diagnosis Nephrolithiasis ([id number] N20.0, Working, Medical). Renal colic on right side ([id number] N23, Working, Medical). Course Improving. Education and Follow-up Counseled: patient. Extracted from: Title: Clinical Document Author: Casie Julien MD Date: 02/19/16 [facility] INFECTIOUS DISEASE PROGRESS NOTE Coco Henao M.D. Syed W. Hasan, M.D. REASON FOR CONSULTATION & FOLLOW-UP: Back Pain SUBJECTIVE: INTERVAL HISTORY: Pain less frequent. ROS: CONST: No fever or chills : No dysuria OBJECTIVE: PHYSICAL EXAMINATION: Vitals Tmp(F) Pulse BP RR SpO2 FIO2 02/18 08:00 98.1 64 120/83 17 98 --- 02/18 04:00 98.5 67 115/73 18 98 --- 02/18 00:00 98.7 69 113/73 18 98 --- 02/17 20:00 99.1 68 109/64 20 98 --- 02/17 16:25 98.6 68 120/75 20 98 --- 24 Hr Tmax: 99.1F (37.28c) at 02/17 20:00 Vital Signs are the last 5 in the past 48 hours. GEN: No acute distress, conversant HEENT: Sclera white; No thrush or erythema; Moist membranes LUNG: Clear to auscultation bilaterally; No wheeze, rhonchi, or crackles HEART: RRR; +S1/S2; + murmur ABD: +BS; Soft; Non-distended; Non-tender; Negative Santo's sign : No suprapubic tenderness; + right CVA TTP Lines, Tubes, and Drains: 02/17/2016 05:29 Peripheral Lines: Antecubital Left 18 gauge Over the needle catheter MEDICATIONS: Scheduled Meds (7): 02/17/16 aspirin (aspirin 81 mg tablet, enteric coated) 81 mg PO Daily 02/17/16 atorvastatin (Lipitor) 80 mg PO Bedtime 02/17/16 clopidogrel (Plavix) 75 mg PO Daily 02/17/16 enoxaparin (Lovenox) 40 mg SUB-Q [id number] 02/17/16 isosorbide mononitrate (Imdur) 30 mg PO QAM 02/17/16 lisinopril 2.5 mg PO Daily 02/18/16 pantoprazole (Protonix) 40 mg PO Before Breakfast Allergies (4) Active Reaction traMADol None documented Flomax None documented beta blockers None documented Stadol None documented LABORATORY (All labs have been reviewed.): Labs (Last four charted values) WBC H 11.1 (FEB 18) H 10.8 (FEB 17) H 12.0 (FEB 16) Hgb L 12.8 (FEB 18) L 11.8 (FEB 17) L 13.1 (FEB 16) Hct L 38.6 (FEB 18) L 35.9 (FEB 17) L 39.5 (FEB 16) Plt 273 (FEB 18) 270 (FEB 17) 327 (FEB 16) Na 136 (FEB 18) 139 (FEB 16) K 4.4 (FEB 18) 4.0 (FEB 16) CO2 24 (FEB 18) L 23 (FEB 16) Cl 104 (FEB 18) 105 (FEB 16) Cr 0.88 (FEB 18) 0.97 (FEB 16) BUN 10 (FEB 18) 11 (FEB 16) Glucose Random H 147 (FEB 18) H 103 (FEB 16) Ca 8.8 (FEB 18) 8.8 (FEB 16) Troponin <0.02 (FEB 17) <0.02 (FEB 16) <0.02 (FEB 16) <0.02 (FEB 16 ) CK MB 0.9 (FEB 16) Total CK 58 (FEB 16) Alk Phos: 128 02/17/16 06:18:24 A/G Ratio: 0.7 02/17/16 06:18:24 ALT: 33 02/17/16 06:18:24 Albumin Lvl: 3.4 Low 02/17/16 06:18:24 Bili Total: 0.5 02/17/16 06:18:24 Total Protein: 8.0 02/17/16 06:18:24 Globulin: 4.6 High 02/17/16 06:18:24 AST: 16 02/17/16 06:18:24 MICROBIOLOGY: All cultures have been reviewed. IMAGING/TESTS: Recent studies have been reviewed. ASSESSMENT & PLAN: 45 yo WM presents with: * Probable Symptomatic Right Nephrolithiasis * R/O Right Pyelopephritis * Hx of Nephrolithiasis * Leukocytosis * CAD - Afebrile. - Normal procalcitonin. - Minimal leukocytosis likely from inflammation. - Continue pain control. - No evidence of urinary infection, clean UA, asymptomatic. - OK to DC from ID standpoint. ANTIMICROBIALS: None Extracted from: Title: Clinical Document Author: Casie Julien MD Date: 02/17/16 [facility] INFECTIOUS DISEASE CONSULTATION NOTE Coco Henao M.D. Syed W. Hasan, M.D. REFERRING PHYSICIAN: Dr. Hamilton Guevara REASON FOR CONSULTATION: Pyelopephritis CHIEF COMPLAINT: Right back pain HISTORY OF PRESENT ILLNESS: Mr. Annabel Mcconnell is a 45 year old gentleman, with history of nephrolithiasis dating back to 1999, who presents with sudden onset of right flank pain starting yesterday morning described as cons tant pain with episodic stabbing nature. He denies associated fever, chills, sweats, dysuria, or blood in urine. He notes passing a stone about 1 week ago and had some pink-tinged urine at the time but none recently. He has had right back pain with prior episodes of kidney stones , but this time the pain is higher then usual and starts in the front chest through the back. He denies any gallbladder issu es, and has not been eating any fatty foods. He denies having had chicken pox in he past. He notes that pain is a bit improved with pain medication. REVIEW OF SYSTEMS: CONSTITUTIONAL: Denies fever, chills, or night sweats. EYES: Denies blurry vision or eye pain. ENT: Denies ear pain, nasal drainage, or sore throat. RESPIRATORY: Denies shortness of breath or cough. CARDIOVASCULAR: + chest pain; No palpitations. GASTROINTESTINAL: Denied nausea, vomiting, diarrhea, or abdominal pain. GENITOURINARY: Denies dysuria, frequency, or urgency. + right flank pain MUSCULOSKELETAL: + right back pain NEUROLOGIC: + headaches. SKIN: No rashes or lesions. ENDOCRINE: Denies history of polyuria, polydipsia, heat or cold intolerance. HEME/LYMPH: Denies bleeding, bruising, or swollen glands. PSYCH: No depression or anxiety PAST MEDICAL/SURGICAL HISTORY: Heart attack Kidney stone Hypertension Diabetes Hypercholesteremia Sleep apnea Abdominal aortic aneurysm Bundle branch block, right Congestive heart failure Placement of stent in cardiac conduit Catheterization of right heart Lithotripsy SOCIAL HISTORY: Former tobacco use; quit 2 years ago. Former alcohol use; quit 16 years ago. No drug use. FAMILY HISTORY: Father: COPD; Congestive heart disease Mother: High blood pressure; Osteoarthritis PHYSICAL EXAMINATION: Vitals Tmp(F) Pulse BP RR SpO2 FIO2 02/16 09:20 97.6 63 126/78 20 97 --- 02/16 07:21 97.7 60 122/73 16 99 --- 02/16 06:16 ---- 59 ----- 14 99 --- 02/16 05:16 97.8 71 142/86 17 99 --- 24 Hr Tmax: 97.8F (36.56c) at 02/16 05:16 Vital Signs are the last 5 in the past 48 hours. GEN: No acute distress, conversant HEENT: Sclera white; No thrush or erythema; Moist membranes LUNG: Clear to auscultation bilaterally; No wheeze, rhonchi, or crackles HEART: RRR; +S1/S2; + murmur ABD: +BS; Soft; Non-distended; Non-tender; Negative Santo's sign : No suprapubic tenderness; + right CVA TTP EXT: No clubbing, cyanosis, or edema NEURO: Alert and oriented; PERRL; No gross focal deficits SKIN: No rashes, ecchymosis, or lesions PSYCH: Appropriate affect Lines, Tubes, and Drains: 02/17/2016 05:29 Peripheral Lines: Antecubital Left 18 gauge Over the needle catheter MEDICATIONS: Scheduled Meds (7): 02/17/16 aspirin (aspirin 81 mg tablet, enteric coated) 81 mg PO Daily 02/17/16 atorvastatin (Lipitor) 80 mg PO Bedtime 02/17/16 clopidogrel (Plavix) 75 mg PO Daily 02/17/16 enoxaparin (Lovenox) 40 mg SUB-Q [id number] 02/17/16 isosorbide mononitrate (Imdur) 30 mg PO QAM 02/17/16 lisinopril 2.5 mg PO Daily 02/18/16 pantoprazole (Protonix) 40 mg PO Before Breakfast ALLERGIES: Allergies (4) Active Reaction traMADol None documented Flomax None documented beta blockers None documented Stadol None documented LABORATORY (Reviewed): Labs (Last four charted values) WBC H 12.0 (FEB 16) Hgb L 13.1 (FEB 16) Hct L 39.5 (FEB 16) Plt 327 (FEB 16) Na 139 (FEB 16) K 4.0 (FEB 16) CO2 L 23 (FEB 16) Cl 105 (FEB 16) Cr 0.97 (FEB 16) BUN 11 (FEB 16) Glucose Random H 103 (FEB 16) Ca 8.8 (FEB 16) Troponin <0.02 (FEB 16) CK MB 0.9 (FEB 16) Total CK 58 (FEB 16) Alk Phos: 128 02/17/16 06:18:24 A/G Ratio: 0.7 02/17/16 06:18:24 ALT: 33 02/17/16 06:18:24 Albumin Lvl: 3.4 Low 02/17/16 06:18:24 Bili Total: 0.5 02/17/16 06:18:24 Total Protein: 8.0 02/17/16 06:18:24 Globulin: 4.6 High 02/17/16 06:18:24 AST: 16 02/17/16 06:18:24 MICROBIOLOGY: UA: Negative IMAGING (Reviewed): CXR: A few scattered interstitial opacities and granulomatous calcifications are noted bilaterally, nonspecific, likely chronic. Cardiac silhouette is mild to moderately enlarged. There is no acute consolida tion or pleural fluid collection noted. Marginal spurring is noted at the thoracic spine. Degenerative changes at the shoulders bilaterally. CT: 1. Right nephrolithiasis. 2. Right minimal perinephric stranding, correlation for pyelonephritis is recommended. 3. Hepatomegaly. 4. Infrarenal aortic aneurysm. 5. Right fat-containing inguinal hernia. 6. Presumed small left renal cyst. 7. Cardiomegaly. ASSESSMENT & PLAN: 45 yo WM presents with: * Probable Symptomatic Right Nephrolithiasis * R/O Right Pyelopephritis * Hx of Nephrolithiasis * Leukocytosis * CAD - Patient presents with right flank pain with evidence of nephrolithiasis though no evidence of ureterolithiasis or hematuria on UA. CT reveals minimal stranding, but patient's UA is negative for any py uria and is asymptomatic from UTI/pyelonephritis standpoint. His WBC is minimally elevated, however, which may be from inflammation, but can check a procalcitonin level. His LFTs, abdominal exam, and CT is normal regarding possible biliary symptoms. He has no history of chicken pox to consider early shingles. He received a dose of ceftriaxone in the ED, but do not feel he needs any further antibiotics at this time. Continue symptom and pain control. Will continue to follow.
--- OUTSIDE RECORDS SUMMARY | 2017-12-25 12:58 | XMS REPORT | Summary of Care ---
:[address] [facility] Address [address] [place] [address]- Encounter HQ Guero(JACQUELYN) [id number] Date(s): 03/02/16 - 03/02/16 [facility] [id number] [place] [address] [phone] Discharge Diagnosis: Renal calculus Discharge Diagnosis: Flank pain Discharge Disposition: Home or Self Care Attending Physician: Fei Partida MD Vital Signs Most recent to oldest 1 2 3 [Reference Range]: Temperature Oral [96.4-99.1 98.2 DegF 98.0 DegF DegF] (03/02/16 9:14 AM) (03/02/16 5:03 AM) Blood Pressure [90-140/60-90 120/66 mmHg 149/87 mmHg mmHg] (03/02/16 7:39 AM) *HI* (03/02/16 5:03 AM) Respiratory Rate [14-20 BRMIN] 16 BRMIN 18 BRMIN (03/02/16 9:14 AM) (03/02/16 5:03 AM) Peripheral Pulse Rate [60-100 58 bpm 50 bpm 69 bpm bpm] *LOW* *LOW* (03/02/16 5:03 AM) (03/02/16 9:14 AM) (03/02/16 7:39 AM) Weight 128.636 kg (03/02/16 5:03 AM) Problem List Condition Effective Dates Status Health Status Informant Abdominal aortic aneurysm(Confirmed) Resolved Congestive heart failure(Confirmed)1 Resolved Diabetes(Confirmed) Resolved Hypercholesteremia(Confirmed) Resolved Hypertension(Confirmed) Resolved Kidney stone(Confirmed) Resolved Heart attack(Confirmed)2 Resolved Bundle branch block, Resolved right(Confirmed) Sleep apnea(Confirmed) Resolved 12L fluid restriction/[id number] 2015 Allergies, Adverse Reactions, Alerts Substance Reaction Severity Status beta blockers Active Flomax Active Stadol Active traMADol Active Medications Dilaudid 0.5 mg, 0.5 mL, Route: IVP, Drug form: INJ, ONCE, Dosing Weight 128.636, kg, Priority: STAT, Start date: 03/02/16 7:40:00 CDT, Stop date: 03/02/16 7:40:00 CDT Notes: Same as: Dilaudid Start Date: 03/02/16 Stop Date: 03/02/16 Status: CompletedketOROLAC 30 mg, 1 mL, Route: IVP, Drug form: INJ, ONCE, Dosing Weight 128.636, kg, Priority: STAT, Start date: 03/02/16 5:25:00 CDT, Stop date: 03/02/16 5:25:00 CDT Notes: (Same as:Toradol) IV bolus must be given >15 seconds. Give IM administration slowly and deeply into the muscle.Not for use > 4 days MEDICATION WASTE Product Size: 30 mgProduct Wasted: ___ mg Start Date: 03/02/16 Stop Date: 03/02/16 Status: Completedmorphine Sulfate 4 mg, 1 mL, Route: IVP, Drug form: INJ, ONCE, Dosing Weight 128.636, kg, Priority: STAT, Start date:03/02/16 5:25:00 CDT, Stop date: 03/02/16 5:25:00 CDT Notes: (Same as:MORPhine Sulfate) Start Date: 03/02/16 Stop Date: 03/02/16 Status: Completedondansetron 4 mg, 2 mL, Route: IVP, Drug form: INJ, ONCE, Dosing Weight 128.636, kg, Priority: STAT, Start date:03/02/16 5:25:00 CDT, Stop date: 03/02/16 5:25:00 CDT Notes: (Same as: Zofran) MEDICATION WASTE Product Size: 4 mgProduct Wasted: ___ mg Start Date: 03/02/16 Stop Date: 03/02/16 Status: CompletedSaline Flush 0.9% 10 mL, Route: IVP, Drug Form: INJ, Dosing Weight 128.636, kg, PRN, PRN Line Flush, Start date: 03/02/16 5:25:00 CDT, Duration: 30 day, Stop date: 04/01/16 5 :24:00 CDT Notes: (Same as: BD Posiflush) Start Date: 03/02/16 Stop Date: 03/02/16 Status: DiscontinuedSodium Chloride 0.9% (Bolus) IV 1,000 mL, 2,000 ml/hr, Infuse Over: 30 minutes, Route: IV, 1,000, Drug form: INJ , ONCE, Priority: STAT, Dosing Weight 128.636 kg, Start date: 03/02/16 5:25:00 CDT, Duration: 1 doses or times, Stop date: 03/02/16 5:25:00 CDT Start Date: 03/02/16 Stop Date: 03/02/16 Status: Completed Results ELECTROLYTES Most recent to oldest [Reference Range]: 1 Sodium Lvl [135-145 mEq/L] 138 mEq/L (03/02/16 5:41 AM) Potassium Lvl [3.5-5.1 mEq/L] 4.4 mEq/L (03/02/16 5:41 AM) Chloride Lvl [95-109 mEq/L] 106 mEq/L (03/02/16 5:41 AM) CO2 [24-32 mEq/L] 26 mEq/L (03/02/16 5:41 AM) AGAP [10.0-20.0 mEq/L] 10.4 mEq/L (03/02/16 5:41 AM) CHEM PANEL Most recent to oldest [Reference Range]: 1 Creatinine Lvl [0.50-1.40 mg/dL] 1.07 mg/dL (03/02/16 5:41 AM) eGFR 83 mL/min/1.73m2 1 *NA* (03/02/16 5:41 AM) BUN [7-22 mg/dL] 17 mg/dL (03/02/16 5:41 AM) B/C Ratio [6-25] 16 (03/02/16 5:41 AM) Glucose Lvl [70-99 mg/dL] 106 mg/dL *HI* (03/02/16 5:41 AM) Total Protein [6.4-8.4 g/dL] 8.0 g/dL (03/02/16 5:41 AM) Albumin Lvl [3.5-5.0 g/dL] 3.4 g/dL *LOW* (03/02/16 5:41 AM) Globulin [2.7-4.2 g/dL] 4.6 g/dL *HI* (03/02/16 5:41 AM) A/G Ratio [0.7-1.6] 0.7 (03/02/16 5:41 AM) Calcium Lvl [8.5-10.5 mg/dL] 8.7 mg/dL (03/02/16 5:41 AM) ALT [0-65 unit/L] 33 unit/L (03/02/16 5:41 AM) AST [0-37 unit/L] 13 unit/L (03/02/16 5:41 AM) Alk Phos [39-136 unit/L] 127 unit/L (03/02/16:41 AM) Bili Total [0.2-1.3 mg/dL] 0.3 mg/dL (03/02/16 5:41 AM) Lipase Lvl [73-393 unit/L] 164 unit/L (03/02/16 5:41 AM) 1Result Comment: The eGFR is calculated using [...] eGFR should be multiplied by the estimated BMI.URINE AND STOOL Most recent to oldest [Reference Range]: 1 UA Turbidity [Clear] Clear (03/02/16 8:22 AM) UA Color [Yellow] Yellow *NA* (03/02/16 8:22 AM) UA pH [5.0-8.0] 6.0 (03/02/16 8:22 AM) UA Spec Grav [<=1.030] 1.015 (03/02/16 8:22 AM) UA Glucose [Negative mg/dL] Negative mg/dL (03/02/16 8:22 AM) UA Blood [Negative] Negative (03/02/16 8:22 AM) UA Ketones [Negative mg/dL] Negative mg/dL *NA* (03/02/16 8:22 AM) UA Protein [Negative mg/dL] Negative mg/dL (03/02/16 8:22 AM) UA Urobilinogen [0.1-1.0 EU/dL] 0.2 EU/dL (03/02/16 8:22 AM) UA Bili [Negative] Negative *NA* (03/02/16 8:22 AM) UA Leuk Est [Negative] Negative (03/02/16 8:22 AM) UA Nitrite [Negative] Negative (03/02/16: AM) UA WBC [None Seen] None Seen (03/02/16 8:22 AM) UA RBC [0-2 /HPF] 0-2 /HPF (03/02/16 8:22 AM) UA Sq Epi [Few] None Seen (03/02/16 8: AM) HEMATOLOGY Most recent to oldest [Reference Range]: 1 WBC [3.7-10.4 K/CMM] 11.8 K/CMM *HI* (03/02/16 5:41 AM) RBC [4.70-6.10 M/CMM] 5.18 M/CMM (03/02/16 5:41 AM) Hgb [14.0-18.0 g/dL] 12.5 g/dL *LOW* (03/02/16 5:41 AM) Hct [42.0-54.0 %] 37.4 % *LOW* (03/02/16 5:41 AM) MCV [80.0-94.0 fL] 72.1 fL *LOW* (03/02/16 5:41 AM) MCH [27.0-31.0 pg] 24.1 pg *LOW* (03/02/16 5:41 AM) MCHC [32.0-36.0 g/dL] 33.4 g/dL (03/02/16 5:41 AM) RDW [11.5-14.5 %] 16.7 % *HI* (03/02/16 5:41 AM) Platelet [133-450 K/CMM] 303 K/CMM (03/02/16 5:41 AM) MPV [7.4-10.4 fL] 7.7 fL (03/02/16 5:41 AM) Segs [45.0-75.0 %] 69.1 % (03/02/16 5:41 AM) Lymphocytes [20.0-40.0 %] 21.9 % (03/02/16 5:41 AM) Monocytes [2.0-12.0 %] 6.7 % (03/02/16 5:41 AM) Eosinophils [0.0-4.0 %] 1.5 % (03/02/16 5:41 AM) Basophils [0.0-1.0 %] 0.8 % (03/02/16 5:41 AM) Segs-Bands # [1.5-8.1 K/CMM] 8.1 K/CMM (03/02/16 5:41 AM) Lymphocytes # [1.0-5.5 K/CMM] 2.6 K/CMM (03/02/16 5:41 AM) Monocytes # [0.0-0.8 K/CMM] 0.8 K/CMM (03/02/16 5:41 AM) Eosinophils # [0.0-0.5 K/CMM] 0.2 K/CMM (03/02/16 5:41 AM) Basophils # [0.0-0.2 K/CMM] 0.1 K/CMM (03/02/16 5:41 AM) Microcyte [None Seen] 1+ *ABN* (03/02/16 5:41 AM) Immunizations Not Given Vaccine Date Status [...] Smoking Cessation Counseling No Assessment and Plan No data available for this section
--- OUTSIDE RECORDS SUMMARY | 2017-12-25 12:58 | XMS REPORT | Summary of Care ---
:1970 Author Organization [facility] Address [address] [place] [address]- Encounter HQ Guero(JACQUELYN) [id number] Date(s): 04/25/16 - 04/25/16 [facility] [address] [place] [address] [phone] Discharge Diagnosis: Flank pain Discharge Disposition: Home or Self Care Attending Physician: Agustin Lopez MD Vital Signs Most recent to oldest [Reference Range]: 1 2 Height 177.8 cm (04/25/16 6:04 PM) Temperature Oral [96.4-99.1 DegF] 97.4 DegF 97.2 DegF (04/25/16 8:24 PM) (04/25/16 6:04 PM) Blood Pressure [90-140/60-90 mmHg] 118/64 mmHg 137/85 mmHg (04/25/16 8:24 PM) (04/25/16 6:04 PM) Respiratory Rate [14-20 BRMIN] 18 BRMIN 18 BRMIN (04/25/16 8:24 PM) (04/25/16 6:04 PM) Peripheral Pulse Rate [60-100 bpm] 78 bpm 80 bpm (04/25/16 8:24 PM) (04/25/16 6:04 PM) Weight 128.182 kg (04/25/16 6:04 PM) Body Mass Index 40.55 m2 (04/25/16 6:04 PM) Problem List Condition Effective Dates Status Health Status Informant Abdominal aortic aneurysm(Confirmed) Resolved Congestive heart failure(Confirmed)1 Resolved Diabetes(Confirmed) Resolved Hypercholesteremia(Confirmed) Resolved Hypertension(Confirmed) Resolved Kidney stone(Confirmed) Resolved Heart attack(Confirmed)2 Resolved Bundle branch block, Resolved right(Confirmed) Sleep apnea(Confirmed) Resolved 12L fluid restriction/[id number] 2015 Allergies, Adverse Reactions, Alerts Substance Reaction Severity Status beta blockers Active Flomax Active Stadol Active traMADol Active Medications morphine Sulfate 4 mg, 1 mL, Route: IVP, Drug form: INJ, ONCE, Dosing Weight 128.182, kg, Priority: STAT, Start date:04/25/16 19:51:00 CDT, Stop date: 04/25/16 19:51:00 CDT Notes: (Same as:MORPhine Sulfate) Start Date: 04/25/16 Stop Date: 04/25/16 Status: Completedmorphine Sulfate 4 mg, 1 mL, Route: IVP, Drug form: INJ, ONCE, Dosing Weight 128.182, kg, Priority: STAT, Start date:04/25/16 18:23:00 CDT, Stop date: 04/25/16 18:23:00 CDT Notes: (Same as:MORPhine Sulfate) Start Date: 04/25/16 Stop Date: 04/25/16 Status: CompletedSaline Flush 0.9% 10 mL, Route: IVP, Drug Form: INJ, Dosing Weight 129.091, kg, PRN, PRN Line Flush, Start date: 04/25/16 18:07:00 CDT, Duration: 30 day, Stop date: 05/25/16 17:06:00 [facility] Notes: (Same as: BD Posiflush) Start Date: 04/25/16 Stop Date: 04/25/16 Status: DiscontinuedTylenol with Codeine #3 oral tablet 1 - 2 tab, PO, Q4H, PRN Pain, X 2 day, # 20 tab, 0 Refill(s) Start Date: 04/25/16 Stop Date: 04/27/16 Status: CompletedZofran 4 mg, 2 mL, Route: IVP, Drug form: INJ, ONCE, Dosing Weight 128.182, kg, Priority: STAT, Start date:04/25/16 18:23:00 CDT, Stop date: 04/25/16 18:23:00 CDT Notes: (Same as: Zofran) MEDICATION WASTE Product Size: 4 mgProduct Wasted: ___ mg Start Date: 04/25/16 Stop Date: 04/25/16 Status: Completed Results ELECTROLYTES Most recent to oldest [Reference Range]: 1 Sodium Lvl [135-145 mEq/L] 136 mEq/L (04/25/16 6: PM) Potassium Lvl [3.5-5.1 mEq/L] 3.9 mEq/L (04/25/16 6: PM) Chloride Lvl [95-109 mEq/L] 104 mEq/L (04/25/16: PM) CO2 [24-32 mEq/L] 26 mEq/L (04/25/16: PM) AGAP [10.0-20.0 mEq/L] 9.9 mEq/L *LOW* (04/25/16: PM) CHEM PANEL Most recent to oldest [Reference Range]: 1 Creatinine Lvl [0.50-1.40 mg/dL] 0.91 mg/dL (04/25/16: PM) eGFR 100 mL/min/1.73m2 1 *NA* (04/25/16: PM) BUN [7-22 mg/dL] 17 mg/dL (04/25/16: PM) B/C Ratio [6-25] 19 (04/25/16: PM) Glucose Lvl [70-99 mg/dL] 221 mg/dL *HI* (04/25/16: PM) Total Protein [6.4-8.4 g/dL] 7.6 g/dL (04/25/16: PM) Albumin Lvl [3.5-5.0 g/dL] 3.4 g/dL *LOW* (04/25/16: PM) Globulin [2.7-4.2 g/dL] 4.2 g/dL (04/25/16: PM) A/G Ratio [0.7-1.6] 0.8 (04/25/16: PM) Calcium Lvl [8.5-10.5 mg/dL] 8.7 mg/dL (04/25/16: PM) ALT [0-65 unit/L] 30 unit/L (04/25/16: PM) AST [0-37 unit/L] 14 unit/L (11/3/16 6:17 PM) Alk Phos [39-136 unit/L] 128 unit/L (04/25/16 6:17 PM) Bili Total [0.2-1.3 mg/dL] 0.3 mg/dL (04/25/16 6:17 PM) 1Result Comment: The eGFR is calculated [...] [Reference Range]: 1 UA Turbidity [Clear] Clear (04/25/16 6:17 PM) UA Color [Yellow] Yellow *NA* (04/25/16: PM) UA pH [5.0-8.0] 6.0 (04/25/16: PM) UA Spec Grav [<=1.030] 1.020 (04/25/16: PM) UA Glucose [Negative mg/dL] 250 mg/dL *ABN* (04/25/16: PM) UA Blood [Negative] Negative (04/25/16: PM) UA Ketones [Negative] Negative *NA* (04/25/16: PM) UA Protein [Negative] Negative (04/25/16 6: PM) UA Urobilinogen [0.1-1.0 EU/dL] 0.2 EU/dL (04/25/16:17 PM) UA Bili [Negative] Negative *NA* (04/25/16: PM) UA Leuk Est [Negative] Negative (04/25/16 6:17 PM) UA Nitrite [Negative] Negative (04/25/16 PM) UA WBC [None Seen /HPF] 0-2 /HPF (04/25/16 6:17 PM) UA RBC [0-2 /HPF] 0-2 /HPF (04/25/16 6:17 PM) UA Bacteria [None Seen /HPF] Occasional /HPF (04/25/16 6:17 PM) UA Sq Epi [Few /LPF] Occasional /LPF (04/25/16 6:17 PM) HEMATOLOGY Most recent to oldest [Reference Range]: 1 WBC [3.7-10.4 K/CMM] 10.3 K/CMM (04/25/16 6:17 PM) RBC [4.70-6.10 M/CMM] 5.40 M/CMM (04/25/16 6:17 PM) Hgb [14.0-18.0 g/dL] 12.9 g/dL *LOW* (04/25/16 6:17 PM) Hct [42.0-54.0 %] 37.9 % *LOW* (04/25/16:17 PM) MCV [80.0-94.0 fL] 70.1 fL *LOW* (04/25/16 6:17 PM) MCH [27.0-31.0 pg] 23.8 pg *LOW* (04/25/16:17 PM) MCHC [32.0-36.0 g/dL] 34.0 g/dL (04/25/16 6:17 PM) RDW [11.5-14.5 %] 16.8 % *HI* (04/25/16: PM) Platelet [133-450 K/CMM] 313 K/CMM (04/25/16 6:17 PM) MPV [7.4-10.4 fL] 7.2 fL *LOW* (04/25/16:17 PM) Segs [45.0-75.0 %] 69.2 % (04/25/16 6:17 PM) Lymphocytes [20.0-40.0 %] 22.5 % (04/25/16 6:17 PM) Monocytes [2.0-12.0 %] 6.1 % (04/25/16 6:17 PM) Eosinophils [0.0-4.0 %] 1.1 % (04/25/16 6:17 PM) Basophils [0.0-1.0 %] 1.1 % *HI* (04/25/16 6:17 PM) Segs-Bands # [1.5-8.1 K/CMM] 7.1 K/CMM (04/25/16 6:17 PM) Lymphocytes # [1.0-5.5 K/CMM] 2.3 K/CMM (04/25/16 6:17 PM) Monocytes # [0.0-0.8 K/CMM] 0.6 K/CMM (04/25/16 6:17 PM) Eosinophils # [0.0-0.5 K/CMM] 0.1 K/CMM (04/25/16 6:17 PM) Basophils # [0.0-0.2 K/CMM] 0.1 K/CMM (04/25/16 6:17 PM) Microcyte [None Seen] 2+ *ABN* (04/25/16 6:17 PM) Immunizations Not Given Vaccine Date Status Refusal [...]
--- OUTSIDE RECORDS SUMMARY | 2017-12-25 12:58 | XMS REPORT | Summary of Care ---
:1970 Author Organization [facility] Address [address] [place] [address]- Encounter HQ Guero(JACQUELYN) [id number] Date(s): 03/05/16 - 03/05/16 [facility] [id number] [place] [address] [phone] Discharge Diagnosis: Acute chest pain Discharge Disposition: Home or Self Care Attending Physician: Rachel Platt MD Vital Signs Most recent to oldest 1 2 3 [Reference Range]: Height 177.8 cm (03/05/16 7:06 AM) Temperature Oral [96.4-99.1 98.7 DegF 98.9 DegF DegF] (03/05/16 9:32 AM) (03/05/16 7:06 AM) Blood Pressure [90-140/60-90 127/68 mmHg 124/76 mmHg 127/77 mmHg mmHg] (03/05/16 9:32 AM) (03/05/16 7:48 AM) (03/05/16 7:06 AM) Respiratory Rate [14-20 BRMIN] 16 BRMIN 16 BRMIN 18 BRMIN (03/05/16 9:32 AM) (03/05/16 7:48 AM) (03/05/16 7:06 AM) Peripheral Pulse Rate [60-100 62 bpm bpm] (03/05/16 7:06 AM) Weight 129.091 kg (03/05/16 7:06 AM) Body Mass Index 40.83 m2 (03/05/16 7:06 AM) Problem List Condition Effective Dates Status Health Status Informant Abdominal aortic aneurysm(Confirmed) Resolved Congestive heart failure(Confirmed)1 Resolved Diabetes(Confirmed) Resolved Hypercholesteremia(Confirmed) Resolved Hypertension(Confirmed) Resolved Kidney stone(Confirmed) Resolved Heart attack(Confirmed)2 Resolved Bundle branch block, Resolved right(Confirmed) Sleep apnea(Confirmed) Resolved 12L fluid restriction/[id number] 2015 Allergies, Adverse Reactions, Alerts Substance Reaction Severity Status beta blockers Active Flomax Active Stadol Active traMADol Active Medications acetaminophen-codeine 300 mg-30 mg oral tablet 1 tab, PO, Q6H, PRN Pain, X 5 day, # 20 tab, 0 Refill(s) Start Date: 03/05/16 Stop Date: 03/10/16 Status: Orderedaspirin 324 mg, Route: PO, ONCE, Dosing Weight 129.091, kg, Priority: STAT, Start date: 03/05/16 7:22:00 CDT, Stop date: 03/05/16 7:22:00 CDT Start Date: 03/05/16 Stop Date: 03/05/16 Status: Completedmorphine Sulfate 4 mg, Route: IVP, ONCE, Dosing Weight 129.091, kg, Priority: STAT, Start date: 03/05/16 8:44:00 CDT,Stop date: 03/05/16 8:44:00 CDT Start Date: 03/05/16 Stop Date: 03/05/16 Status: Completedmorphine Sulfate 2 mg, Route: IVP, ONCE, Dosing Weight 129.091, kg, Priority: STAT, Start date: 03/05/16 7:22:00 CDT,Stop date: 03/05/16 7:22:00 CDT Start Date: 03/05/16 Stop Date: 03/05/16 Status: Completedondansetron 4 mg, Route: IVP, Drug form: INJ, ONCE, Dosing Weight 129.091, kg, Priority: STAT, Start date: 03/05/16 7:35:00 CDT, Stop date: 03/05/16 7:35:00 CDT Start Date: 03/05/16 Stop Date: 03/05/16 Status: CompletedSaline Flush 0.9% 10 mL, Route: IVP, Drug Form: INJ, Dosing Weight 129.091, kg, PRN, PRN Line Flush, Start date: 03/05/16 7:22:00 CDT, Duration: 30 day, Stop date: 04/04/16 7 :21:00 CDT Notes: (Same as: BD Posiflush) Start Date: 03/05/16 Stop Date: 03/05/16 Status: Discontinued Results ELECTROLYTES Most recent to oldest [Reference Range]: 1 2 Sodium Lvl [135-145 mEq/L] 138 mEq/L (03/05/16 7:30 AM) Potassium Lvl [3.5-5.1 mEq/L] 4.0 mEq/L (03/05/16 7:30 AM) Chloride Lvl [95-109 mEq/L] 105 mEq/L (03/05/16 7:30 AM) CO2 [24-32 mEq/L] 25 mEq/L (03/05/16 7:30 AM) AGAP [10.0-20.0 mEq/L] 12.0 mEq/L (03/05/16 7:30 AM) CHEM PANEL Most recent to oldest [Reference Range]: 1 2 Creatinine Lvl [0.50-1.40 mg/dL] 0.88 mg/dL (03/05/16 7:30 AM) eGFR 103 mL/min/1.73m2 1 *NA* (03/05/16 7:30 AM) BUN [7-22 mg/dL] 12 mg/dL (03/05/16 7:30 AM) B/C Ratio [6-25] 14 (03/05/16 7:30 AM) Glucose Lvl [70-99 mg/dL] 97 mg/dL (03/05/16 7:30 AM) Total Protein [6.4-8.4 g/dL] 7.8 g/dL (03/05/16 7:30 AM) Albumin Lvl [3.5-5.0 g/dL] 3.4 g/dL *LOW* (03/05/16 7:30 AM) Globulin [2.7-4.2 g/dL] 4.4 g/dL *HI* (03/05/16 7:30 AM) A/G Ratio [0.7-1.6] 0.8 (03/05/16 7:30 AM) Calcium Lvl [8.5-10.5 mg/dL] 8.8 mg/dL (03/05/16 7:30 AM) ALT [0-65 unit/L] 32 unit/L (03/05/16 7:30 AM) AST [0-37 unit/L] 16 unit/L (03/05/16 7:30 AM) Alk Phos [39-136 unit/L] 128 unit/L (03/05/16 7:30 AM) Bili Total [0.2-1.3 mg/dL] 0.6 mg/dL (03/05/16 7:30 AM) 1Result Comment: The eGFR is calculated [...] estimated BMI.CARDIAC ENZYMES Most recent to oldest [Reference Range]: 1 2 Total CK [12-191 unit/L] 60 unit/L 66 unit/L (03/05/16 8:55 AM) (03/05/16 7:30 AM) CK MB [0.5-3.6 ng/mL] 0.8 ng/mL 0.6 ng/mL (03/05/16 8:55 AM) (03/05/16 7:30 AM) CK MB Index [0.0-2.5] 1.3 0.9 (03/05/16 8:55 AM) (03/05/16 7:30 AM) Troponin-I [0.00-0.40 ng/mL] <0.02 ng/mL <0.02 ng/mL (03/05/16 8:55 AM) (03/05/16 7:30 AM) HEMATOLOGY Most recent to oldest [Reference Range]: 1 2 WBC [3.7-10.4 K/CMM] 10.0 K/CMM (03/05/16 7:30 AM) RBC [4.70-6.10 M/CMM] 5.28 M/CMM (03/05/16 7:30 AM) Hgb [14.0-18.0 g/dL] 12.7 g/dL *LOW* (03/05/16 7:30 AM) Hct [42.0-54.0 %] 38.1 % *LOW* (03/05/16 7:30 AM) MCV [80.0-94.0 fL] 72.2 fL *LOW* (03/05/16 7:30 AM) MCH [27.0-31.0 pg] 24.1 pg *LOW* (03/05/16 7:30 AM) MCHC [32.0-36.0 g/dL] 33.4 g/dL (03/05/16 7:30 AM) RDW [11.5-14.5 %] 16.6 % *HI* (03/05/16 7:30 AM) Platelet [133-450 K/CMM] 294 K/CMM (03/05/16 7:30 AM) MPV [7.4-10.4 fL] 7.4 fL (03/05/16 7:30 AM) Segs [45.0-75.0 %] 75.1 % *HI* (03/05/16 7:30 AM) Lymphocytes [20.0-40.0 %] 15.7 % *LOW* (03/05/16 7:30 AM) Monocytes [2.0-12.0 %] 7.4 % (03/05/16 7:30 AM) Eosinophils [0.0-4.0 %] 1.2 % (03/05/16 7:30 AM) Basophils [0.0-1.0 %] 0.6 % (03/05/16 7:30 AM) Segs-Bands # [1.5-8.1 K/CMM] 7.5 K/CMM (03/05/16 7:30 AM) Lymphocytes # [1.0-5.5 K/CMM] 1.6 K/CMM (03/05/16 7:30 AM) Monocytes # [0.0-0.8 K/CMM] 0.7 K/CMM (03/05/16 7:30 AM) Eosinophils # [0.0-0.5 K/CMM] 0.1 K/CMM (03/05/16 7:30 AM) Basophils # [0.0-0.2 K/CMM] 0.1 K/CMM (03/05/16 7:30 AM) Microcyte [None Seen] 1+ *ABN* (03/05/16 7:30 AM) Immunizations Not Given Vaccine Date Status [...]
--- OUTSIDE RECORDS SUMMARY | 2017-12-25 12:59 | XMS REPORT | Summary of Care ---
:1970 Author Organization [facility] Address [address] [place] [address]- Encounter [facility] Guero(JACQUELYN) [id number] Date(s): 05/17/16 - 05/17/16 [facility] [id number] [place] [phone] Discharge Diagnosis: Chest pain Discharge Disposition: Home or Self Care Attending Physician: Karey Zuleta DO Vital Signs Most recent to oldest [Reference Range]: 1 2 Temperature Oral [96.4-99.1 DegF] 98.1 DegF 97.6 DegF (05/17/16 5:59 PM) (05/17/16 3:43 PM) Blood Pressure [90-140/60-90 mmHg] 116/76 mmHg 100/69 mmHg (05/17/16 5:59 PM) (05/17/16 3:43 PM) Respiratory Rate [14-20 BRMIN] 18 BRMIN 16 BRMIN (05/17/16 5:59 PM) (05/17/16 3:43 PM) Peripheral Pulse Rate [60-100 bpm] 72 bpm 79 bpm (05/17/16 5:59 PM) (05/17/16 3:43 PM) Weight 128.636 kg (05/17/16 3:43 PM) Problem List Condition Effective Dates Status Health Status Informant Abdominal aortic aneurysm(Confirmed) Resolved Congestive heart failure(Confirmed)1 Resolved Diabetes(Confirmed) Resolved Hypercholesteremia(Confirmed) Resolved Hypertension(Confirmed) Resolved Kidney stone(Confirmed) Resolved Heart attack(Confirmed)2 Resolved Bundle branch block, Resolved right(Confirmed) Sleep apnea(Confirmed) Resolved 12L fluid restriction/[id number] Allergies, Adverse Reactions, Alerts Substance Reaction Severity Status beta blockers Active Flomax Active Stadol Active traMADol Active Medications aspirin 81 mg, 1 tab, Route: PO, Drug form: ECTAB, ONCE, Dosing Weight 128.636, kg, Priority: STAT, Start date: 05/17/16 17:16:00 [employer], Stop date: 05/17/16 17:16:00 [employer] Notes: Do not crush or chew.(Same As: Ecotrin) Start Date: 05/17/16 Stop Date: 05/17/16 Status: CompletedSaline Flush 0.9% 10 mL, Route: IVP, Drug Form: INJ, Dosing Weight 128.636, kg, PRN, PRN Line Flush, Start date: 05/17/16 15:48:00 [employer], Duration: 30 day, Stop date: 06/16/16 15:47:00 [employer] Notes: (Same as: BD Posiflush) Start Date: 05/17/16 Stop Date: 05/17/16 Status: Discontinued Results ELECTROLYTES Most recent to oldest [Reference Range]: 1 Sodium Lvl [135-145 mEq/L] 140 mEq/L (05/17/16 4:01 PM) Potassium Lvl [3.5-5.1 mEq/L] 3.7 mEq/L (05/17/16 4:01 PM) Chloride Lvl [95-109 mEq/L] 106 mEq/L (05/17/16 4:01 PM) CO2 [24-32 mEq/L] 28 mEq/L (05/17/16 4:01 PM) AGAP [10.0-20.0 mEq/L] 9.7 mEq/L *LOW* (05/17/16 4:01 PM) CHEM PANEL Most recent to oldest [Reference Range]: 1 Creatinine Lvl [0.50-1.40 mg/dL] 1.11 mg/dL (05/17/16 4:01 PM) eGFR 79 mL/min/1.73m2 1 *NA* (05/17/16 4:01 PM) BUN [7-22 mg/dL] 15 mg/dL (05/17/16 4:01 PM) B/C Ratio [6-25] 14 (05/17/16 4:01 PM) Glucose Lvl [70-99 mg/dL] 148 mg/dL *HI* (05/17/16 4:01 PM) Total Protein [6.4-8.4 g/dL] 7.7 g/dL (05/17/16 4:01 PM) Albumin Lvl [3.5-5.0 g/dL] 3.3 g/dL *LOW* (05/17/16 4:01 PM) Globulin [2.7-4.2 g/dL] 4.4 g/dL *HI* (05/17/16 4:01 PM) A/G Ratio [0.7-1.6] 0.8 (05/17/16 4:01 PM) Calcium Lvl [8.5-10.5 mg/dL] 8.8 mg/dL (05/17/16 4:01 PM) ALT [0-65 unit/L] 30 unit/L (05/17/16 4:01 PM) AST [0-37 unit/L] 14 unit/L (05/17/16 4:01 PM) Alk Phos [39-136 unit/L] 129 unit/L (05/17/16 4:01 PM) Bili Total [0.2-1.3 mg/dL] 0.4 mg/dL (05/17/16 4:01 PM) 1Result Comment: The eGFR is calculated [...] Most recent to oldest [Reference Range]: 1 Total CK [12-191 unit/L] 74 unit/L (05/17/16 4:01 PM) CK MB [0.5-3.6 ng/mL] 0.8 ng/mL (05/17/16 4:01 PM) CK MB Index [0.0-2.5] 1.1 (05/17/16 4:01 PM) Troponin-I [0.00-0.40 ng/mL] <0.02 ng/mL (05/17/16 4:01 PM) URINE AND STOOL Most recent to oldest [Reference Range]: 1 UA Turbidity [Clear] Clear (05/17/16 5:16 PM) UA Color [Yellow] Yellow *NA* (05/17/16 5:16 PM) UA pH [5.0-8.0] 6.5 (05/17/16 5:16 PM) UA Spec Grav [<=1.030] 1.020 (05/17/16 5:16 PM) UA Glucose [Negative mg/dL] Negative mg/dL (05/17/16 5:16 PM) UA Blood [Negative] Negative (05/17/16 5:16 PM) UA Ketones [Negative mg/dL] Negative mg/dL *NA* (05/17/16 5:16 PM) UA Protein [Negative mg/dL] Negative mg/dL (05/17/16 5:16 PM) UA Urobilinogen [0.1-1.0 EU/dL] 0.2 EU/dL (05/17/16 5:16 PM) UA Bili [Negative] Negative *NA* (05/17/16 5:16 PM) UA Leuk Est [Negative] Negative (05/17/16 5:16 PM) UA Nitrite [Negative] Negative (05/17/16 5:16 PM) UA WBC [None Seen /HPF] 0-2 /HPF (05/17/16 5:16 PM) UA RBC [0-2 /HPF] 0-2 /HPF (05/17/16 5:16 PM) UA Bacteria [None Seen /HPF] Occasional /HPF (05/17/16 5:16 PM) UA Sq Epi [Few /LPF] Rare /LPF (05/17/16 5:16 PM) UA Mucus [None Seen /LPF] Few /LPF (05/17/16 5:16 PM) HEMATOLOGY Most recent to oldest [Reference Range]: 1 WBC [3.7-10.4 K/CMM] 10.5 K/CMM *HI* (05/17/16 4:01 PM) RBC [4.70-6.10 M/CMM] 5.30 M/CMM (05/17/16 4:01 PM) Hgb [14.0-18.0 g/dL] 12.4 g/dL *LOW* (05/17/16 4:01 PM) Hct [42.0-54.0 %] 36.8 % *LOW* (05/17/16 4:01 PM) MCV [80.0-94.0 fL] 69.4 fL *LOW* (05/17/16 4:01 PM) MCH [27.0-31.0 pg] 23.4 pg *LOW* (05/17/16 4:01 PM) MCHC [32.0-36.0 g/dL] 33.7 g/dL (05/17/16 4:01 PM) RDW [11.5-14.5 %] 17.1 % *HI* (05/17/16 4:01 PM) Platelet [133-450 K/CMM] 281 K/CMM (05/17/16 4:01 PM) MPV [7.4-10.4 fL] 7.3 fL *LOW* (05/17/16 4:01 PM) Segs [45.0-75.0 %] 68.8 % (05/17/16 4:01 PM) Lymphocytes [20.0-40.0 %] 22.3 % (05/17/16 4:01 PM) Monocytes [2.0-12.0 %] 6.7 % (05/17/16 4:01 PM) Eosinophils [0.0-4.0 %] 1.1 % (05/17/16 4:01 PM) Basophils [0.0-1.0 %] 1.1 % *HI* (05/17/16 4:01 PM) Segs-Bands # [1.5-8.1 K/CMM] 7.2 K/CMM (05/17/16 4:01 PM) Lymphocytes # [1.0-5.5 K/CMM] 2.4 K/CMM (05/17/16 4:01 PM) Monocytes # [0.0-0.8 K/CMM] 0.7 K/CMM (05/17/16 4:01 PM) Eosinophils # [0.0-0.5 K/CMM] 0.1 K/CMM (05/17/16 4:01 PM) Basophils # [0.0-0.2 K/CMM] 0.1 K/CMM (05/17/16 4:01 PM) Microcyte [None Seen] 2+ *ABN* (05/17/16 4:01 PM) PT [12.0-14.7 seconds] 13.1 seconds (05/17/16 4:01 PM) INR [0.85-1.17] 0.97 (05/17/16 4:01 PM) PTT [22.9-35.8 seconds] 35.4 seconds (05/17/16 4:01 PM) Immunizations Not Given Vaccine Date Status [...]
--- OUTSIDE RECORDS SUMMARY | 2017-12-25 12:59 | XMS REPORT | Summary of Care ---
:1970 Author Organization [facility] Address [address] [place] [address]- Encounter HQ Guero(JACQUELYN) [id number] Date(s): 05/05/16 - 05/06/16 [facility] [id number] [place] [phone] Discharge Disposition: Home or Self Care Attending Physician: Geronimo Dupont MD Admitting Physician: Geronimo Dupont MD Vital Signs Most recent to oldest 1 2 3 [Reference Range]: Height 177.8 cm (05/05/16 9:12 PM) Current Weight 132.6 kg (05/06/16 6:24 AM) Temperature Oral 97.9 DegF 97.4 DegF 97.9 DegF [96.4-99.1 DegF] (05/06/16 3:58 PM) (05/06/16 11:24 AM) (05/06/16 10:20 AM) Blood Pressure 134/84 mmHg 117/77 mmHg 120/77 mmHg [90-140/60-90 mmHg] (05/06/16 3:58 PM) (05/06/16 11:24 AM) (05/06/16 10:20 AM) Respiratory Rate [14-20 16 BRMIN 14 BRMIN 18 BRMIN BRMIN] (05/06/16 3:58 PM) (05/06/16 1:19 PM) (05/06/16 11:24 AM) Peripheral Pulse Rate 61 bpm 56 bpm 62 bpm [60-100 bpm] (05/06/16 3:58 PM) *LOW* (05/06/16 10:20 AM) (05/06/16 11:24 AM) Weight 131.7 kg 127.273 kg (05/05/16 9:12 PM) (05/05/16 5:05 PM) Body Mass Index 41.66 m2 (05/05/16 9:12 PM) Problem List Condition Effective Dates Status Health Status Informant Abdominal aortic aneurysm(Confirmed) Resolved Congestive heart failure(Confirmed)1 Resolved Diabetes(Confirmed) Resolved Hypercholesteremia(Confirmed) Resolved Hypertension(Confirmed) Resolved Kidney stone(Confirmed) Resolved Heart attack(Confirmed)2 Resolved Bundle branch block, Resolved right(Confirmed) Sleep apnea(Confirmed) Resolved 12L fluid restriction/[id number] 2015 Allergies, Adverse Reactions, Alerts Substance Reaction Severity Status beta blockers Active Flomax Active Stadol Active traMADol Active Medications albuterol-ipratropium 2.5-0.5 mg inhalation solution 3 ml, Route: NEB, Drug Form: SOLN, Dosing Weight 127.273, kg, PRN, PRN Respiratory Protocol, Start date: 05/05/16 19:55:00 KILN OPERATOR HELPER, Duration: 30 day, Stop date: 06/04/16 19:54:00 KILN OPERATOR HELPER Notes: (Same as: Hernandez) Start Date: 05/05/16 Stop Date: 05/06/16 Status: Discontinuedaspirin 325 mg tablet 325 mg, 1 tab, Route: PO, Drug form: TAB, Daily, Dosing Weight 127.273, kg, Start date: 05/06/16 9:00:00 KILN OPERATOR HELPER, Duration: 30 day, Stop date: 06/04/16 9:00:00 KILN OPERATOR HELPER Notes: Take with food. Start Date: 05/06/16 Stop Date: 05/06/16 Status: Discontinuedaspirin 81 mg tablet, chewable 243 mg, Route: PO, Drug form: CHEWTAB, ONCE, Dosing Weight 127.273, kg, Priority : STAT, Start date: 05/05/16 17:17:00 KILN OPERATOR HELPER, Stop date: 05/05/16 17:17:00 KILN OPERATOR HELPER Start Date: 05/05/16 Stop Date: 05/05/16 Status: Completedatorvastatin 40 mg oral tablet 40 mg=1 tab, PO, Bedtime, # 90 tab, 1 Refill(s) Start Date: 05/06/16 Status: Orderedclindamycin 300 mg, 2 cap, Route: PO, Drug form: CAP, ABXQ6H, Dosing Weight 127.273, kg, Start date: 05/05/16 21:00:00 KILN OPERATOR HELPER, Stop date: 06/04/16 15:00:00 KILN OPERATOR HELPER Notes: (Same As: Cleocin) Start Date: 05/05/16 Stop Date: 05/06/16 Status: DiscontinuedDextrose 50% Syringe 12.5 gm, 25 mL, Route: IVP, Drug Form: INJ, Dosing Weight 127.273, kg, PRN, PRN Blood Glucose Results, Start date: 05/05/16 20:27:00 KILN OPERATOR HELPER, Duration: 30 day, Stop date: 06/04/16 20:26:00 KILN OPERATOR HELPER Start Date: 05/05/16 Stop Date: 05/06/16 Status: DiscontinuedDextrose 50% Syringe 25 gm, 50 mL, Route: IVP, Drug Form: INJ, Dosing Weight 127.273, kg, PRN, PRN Blood Glucose Results,Start date: 05/05/16 20:27:00 KILN OPERATOR HELPER, Duration: 30 day, Stop date: 06/04/16 20:26:00 KILN OPERATOR HELPER Start Date: 05/05/16 Stop Date: 05/06/16 Status: Discontinuedglucagon 1 mg, Route: IM, Drug form: PDR/INJ, PRN, Dosing Weight 127.273, kg, PRN Blood Glucose Results, Start date: 05/05/16 20:27:00 KILN OPERATOR HELPER, Duration: 30 day, Stop date : 06/04/16 20:26:00 KILN OPERATOR HELPER Start Date: 05/05/16 Stop Date: 05/06/16 Status: DiscontinuedHeparin - one time bolus for ACS 4,000 unit, 4 mL, Route: IVP, Drug form: INJ, ONCE, Dosing Weight 127.273, kg, Priority: STAT, Startdate: 05/05/16 19:43:00 KILN OPERATOR HELPER, Stop date: 05/05/16 19:43:00 KILN OPERATOR HELPER Start Date: 05/05/16 Stop Date: 05/05/16 Status: CompletedHeparin 30 unit/kg Bolus (Heparin Dosing Weight) Route: IVP, PRN, 2,900 unit, 2.9 mL, Drug form: INJ, PRN, Heparin Protocol, Start date: 05/05/16 19:43:00 KILN OPERATOR HELPER Stop date: 06/04/16 19:42:00 KILN OPERATOR HELPER Start Date: 05/05/16 Stop Date: 05/06/16 Status: DiscontinuedHeparin 60 unit/kg Bolus (Heparin Dosing Weight) Route: IVP, PRN, 5,800 unit, 5.8 mL, Drug form: INJ, PRN, Heparin Protocol, Start date: 05/05/16 19:43:00 KILN OPERATOR HELPER Stop date: 06/04/16 19:42:00 KILN OPERATOR HELPER Start Date: 05/05/16 Stop Date: 05/06/16 Status: Discontinuedheparin additive 25,000 unit [12 unit/kg/hr] + Premix Diluent Dextrose 5% 500 mL 500 mL, Rate: 22.73 ml/hr, Infuse over: 22 hr, Route: IV, Dosing Weight 94.7 kg , Total Volume: 500 mL, Start date: 05/05/16 19:43:00 KILN OPERATOR HELPER, Duration: 30 day, Stop date: 06/04/16 19:42:00 KILN OPERATOR HELPER Start Date: 05/05/16 Stop Date: 05/06/16 Status: Discontinuedinsulin aspart 1 unit, 0.01 mL, Route: SUB-Q, Drug form: SOLN, Bedtime, Dosing Weight 127.273, kg, PRN Blood Glucose Results, Start date: 05/05/16 20:27:00 KILN OPERATOR HELPER, Duration: 30 day, Stop date: 06/04/16 20:26:00 KILN OPERATOR HELPER Notes: Roll in palms of hands gently; Do not shake vigorously. (Same as: [employer])"single patient use only"WASTE: F/P - Black; E - Municipal Trash Bin Stable for 28 days at room temperature.Expires in days from Date Start Date: 05/05/16 Stop Date: 05/06/16 Status: Discontinuedinsulin aspart 3 unit, 0.03 mL, Route: SUB-Q, Drug form: SOLN, Bedtime, Dosing Weight 127.273, kg, PRN Blood Glucose Results, Start date: 05/05/16 20:27:00 KILN OPERATOR HELPER, Duration: 30 day, Stop date: 06/04/16 20:26:00 KILN OPERATOR HELPER Notes: Roll in palms of hands gently; Do not shake vigorously. (Same as: NovoLOG)"single patient use only"WASTE: F/P - Black; E - Municipal Trash Bin Stable for 28 days at room temperature.Expires in days from Date Start Date: 05/05/16 Stop Date: 05/06/16 Status: Discontinuedinsulin aspart 4 unit, 0.04 mL, Route: SUB-Q, Drug form: SOLN, Bedtime, Dosing Weight 127.273, kg, PRN Blood Glucose Results, Start date: 05/05/16 20:27:00 KILN OPERATOR HELPER, Duration: 30 day, Stop date: 06/04/16 20:26:00 KILN OPERATOR HELPER Notes: Roll in palms of hands gently; Do not shake vigorously. (Same as: [employer])"single patient use only"WASTE: F/P - Black; E - Municipal Trash Bin Stable for 28 days at room temperature.Expires in days from Date Start Date: 05/05/16 Stop Date: 05/06/16 Status: Discontinuedinsulin aspart 2 unit, 0.02 mL, Route: SUB-Q, Drug form: SOLN, Bedtime, Dosing Weight 127.273, kg, PRN Blood Glucose Results, Start date: 05/05/16 20:27:00 KILN OPERATOR HELPER, Duration: 30 day, Stop date: 06/04/16 20:26:00 KILN OPERATOR HELPER Notes: Roll in palms of hands gently; Do not shake vigorously. (Same as: NovoLOG)"single patient use only"WASTE: F/P - Black; E - Municipal Trash Bin Stable for 28 days at room temperature.Expires in days from Date Start Date: 05/05/16 Stop Date: 05/06/16 Status: Discontinuedinsulin aspart 3 unit, 0.03 mL, Route: SUB-Q, Drug form: SOLN, TID-Before Meals, Dosing Weight 127.273, kg, PRN Blood Glucose Results, Start date: 05/05/16 20:27:00 KILN OPERATOR HELPER, Duration: 30 day, Stop date: 06/04/16 20:26:00CST Notes: Roll in palms of hands gently; Do not shake vigorously. (Same as: NovoLOG)"single patient use only"WASTE: F/P - Black; E - Municipal Trash Bin Stable for 28 days at room temperature.Expires in days from Date Start Date: 05/05/16 Stop Date: 05/06/16 Status: Discontinuedinsulin aspart 4 unit, 0.04 mL, Route: SUB-Q, Drug form: SOLN, TID-Before Meals, Dosing Weight 127.273, kg, PRN Blood Glucose Results, Start date: 05/05/16 20:27:00 KILN OPERATOR HELPER, Duration: 30 day, Stop date: 06/04/16 20:26:00CST Notes: Roll in palms of hands gently; Do not shake vigorously. (Same as: Fareye)"single patient use only"WASTE: F/P - Black; E - Municipal Trash Bin Stable for 28 days at room temperature.Expires in days from Date Start Date: 05/05/16 Stop Date: 05/06/16 Status: Discontinuedinsulin aspart 5 unit, 0.05 mL, Route: SUB-Q, Drug form: SOLN, TID-Before Meals, Dosing Weight 127.273, kg, PRN Blood Glucose Results, Start date: 05/05/16 20:27:00 KILN OPERATOR HELPER, Duration: 30 day, Stop date: 06/04/16 20:26:00CST Notes: Roll in palms of hands gently; Do not shake vigorously. (Same as: NovoLOG)"single patient use only"WASTE: F/P - Black; E - Municipal Trash Bin Stable for 28 days at room temperature.Expires in days from Date Start Date: 05/05/16 Stop Date: 05/06/16 Status: Discontinuedinsulin aspart 2 unit, 0.02 mL, Route: SUB-Q, Drug form: SOLN, TID-Before Meals, Dosing Weight 127.273, kg, PRN Blood Glucose Results, Start date: 05/05/16 20:27:00 KILN OPERATOR HELPER, Duration: 30 day, Stop date: 06/04/16 20:26:00CST Notes: Roll in palms of hands gently; Do not shake vigorously. (Same as: NovoLOG)"single patient use only"WASTE: F/P - Black; E - Municipal Trash Bin Stable for 28 days at room temperature.Expires in days from Date Start Date: 05/05/16 Stop Date: 05/06/16 Status: Discontinuedinsulin aspart 1 unit, 0.01 mL, Route: SUB-Q, Drug form: SOLN, TID-Before Meals, Dosing Weight 127.273, kg, PRN Blood Glucose Results, Start date: 05/05/16 20:27:00 KILN OPERATOR HELPER, Duration: 30 day, Stop date: 06/04/16 20:26:00CST Notes: Roll in palms of hands gently; Do not shake vigorously. (Same as: NovoLOG)"single patient use only"WASTE: F/P - Black; E - Municipal Trash Bin Stable for 28 days at room temperature.Expires in days from Date Start Date: 05/05/16 Stop Date: 05/06/16 Status: DiscontinuedLipitor 80 mg, 2 tab, Route: PO, Drug form: TAB, Bedtime, Dosing Weight 127.273, kg, Start date: 05/05/16 21:00:00 KILN OPERATOR HELPER, Duration: 30 day, Stop date: 06/03/16 21:00: 00 KILN OPERATOR HELPER Notes: (Same as: Lipitor) Start Date: 05/05/16 Stop Date: 05/06/16 Status: Discontinuedlisinopril 2.5 mg, 0.5 tab, Route: PO, Drug form: TAB, Daily, Dosing Weight 131.7, kg, Start date: 05/06/16 9:00:00 KILN OPERATOR HELPER, Duration: 30 day, Stop date: 06/04/16 9:00:00 KILN OPERATOR HELPER Notes: (Same as: Prinivil, Zestril) Start Date: 05/06/16 Stop Date: 05/06/16 Status: Discontinuedmetoprolol 25 mg oral tablet, extended release 25 mg=1 tab, PO, Daily, # 30 tab, 0 Refill(s) Start Date: 05/06/16 Stop Date: 06/05/16 Status: Orderedmorphine Sulfate 2 mg, 1 mL, Route: IVP, Drug form: INJ, Q2H, Dosing Weight 127.273, kg, PRN as needed for chest pain, Priority: STAT, Start date: 05/05/16 20:00:00 KILN OPERATOR HELPER, Duration: 30 day, Stop date: 06/04/16 19:59:00 KILN OPERATOR HELPER Notes: (Same as:MORPhine Sulfate) Start Date: 05/05/16 Stop Date: 05/06/16 Status: Discontinuedmorphine Sulfate 4 mg, Route: IVP, ONCE, Dosing Weight 127.273, kg, Priority: STAT, Start date: 05/05/16 17:15:00 KILN OPERATOR HELPER, Stop date: 05/05/16 17:15:00 KILN OPERATOR HELPER Start Date: 05/05/16 Stop Date: 05/05/16 Status: Completedmorphine Sulfate 4 mg, 1 mL, Route: IVP, Drug form: INJ, ONCE, Dosing Weight 127.273, kg, Priority: STAT, Start date:05/05/16 19:25:00 KILN OPERATOR HELPER, Stop date: 05/05/16 19:25:00 KILN OPERATOR HELPER Notes: (Same as:MORPhine Sulfate) Start Date: 05/05/16 Stop Date: 05/05/16 Status: Completednitroglycerin 100 mg/250ml D5W INJ 100 mg 100 mg, 250 mL, Rate: Titrate, Start Dose: 10 microgram/min, Titration: 10 microgram/min every 5 minutes, Goal(s): Chest pain and SBP between 100 - 150 mmHg, Max Dose: 200 mcg/min, Route: IV, Dosing Weight 127.273 kg, Total Volume: 250, Start date: ... Notes: (Same as:Tridil) Final conc=0.4 mg/ml. Premix bottle. Start Date: 05/05/16 Stop Date: 05/06/16 Status: Discontinuednitroglycerin 2% topical ointment 1 inch, Route: TOP, Dosing Weight 127.273, kg, ONCE, STAT, Start date: 05/05/16 17:40:00 KILN OPERATOR HELPER, Stop date: 05/05/16 17:40:00 KILN OPERATOR HELPER Start Date: 05/05/16 Stop Date: 05/05/16 Status: Completednystatin topical 100,000 units/g powder 1 appl, Route: TOP, PRN, Drug form: PWDR, PRN For Fungal Prophylaxis, Start date : 05/05/16 19:55:00 KILN OPERATOR HELPER, Duration: 30 day, Stop date: 06/04/16 19:54:00 KILN OPERATOR HELPER Notes: (Same as:Mycostatin, Nilstat) For external use only. Start Date: 05/05/16 Stop Date: 05/06/16 Status: DiscontinuedPlavix 75 mg, 1 tab, Route: PO, Drug form: TAB, ONCE, Dosing Weight 127.273, kg, Priority: STAT, Start date: 05/05/16 19:58:00 KILN OPERATOR HELPER, Stop date: 05/05/16 19:58:00 KILN OPERATOR HELPER Notes: (Same As: Plavix) Start Date: 05/05/16 Stop Date: 05/05/16 Status: CompletedPlavix 75 mg, 1 tab, Route: PO, Drug form: TAB, Daily, Dosing Weight 131.7, kg, Start date: 05/07/16 9:00:00 KILN OPERATOR HELPER, Duration: 30 day, Stop date: 06/05/16 9:00:00 KILN OPERATOR HELPER Notes: (Same As: Plavix) Start Date: 05/07/16 Stop Date: 05/06/16 Status: CanceledProtonix 40 mg, 1 tab, Route: PO, Drug form: ECTAB, Before Dinner, Dosing Weight 131.7, kg, Start date: 05/06/16 16:30:00 KILN OPERATOR HELPER, Duration: 30 day, Stop date: 06/04/16 16: 30:00 KILN OPERATOR HELPER Notes: Tablet should not be chewed or crushed.(Same as: Protonix) Start Date: 05/06/16 Stop Date: 05/06/16 Status: DiscontinuedSaline Flush 0.9% 10 mL, Route: IVP, Drug Form: INJ, Dosing Weight 128.182, kg, PRN, PRN Line Flush, Start date: 05/05/16 16:55:00 KILN OPERATOR HELPER, Duration: 30 day, Stop date: 06/04/16 16:54:00 KILN OPERATOR HELPER Notes: preservative free. Start Date: 05/05/16 Stop Date: 05/06/16 Status: DiscontinuedSaline Flush 0.9% 10 ml, Route: IVP, Drug Form: INJ, Dosing Weight 127.273, kg, Q12H, Start date: 05/05/16 21:00:00 KILN OPERATOR HELPER, Duration: 30 day, Stop date: 06/04/16 9:00:00 KILN OPERATOR HELPER Notes: preservative free. Start Date: 05/05/16 Stop Date: 05/06/16 Status: DiscontinuedSaline Flush 0.9% 10 ml, Route: IVP, Drug Form: INJ, Dosing Weight 127.273, kg, PRN, PRN Line Flush, Start date: 05/05/16 19:55:00 KILN OPERATOR HELPER, Duration: 30 day, Stop date: 06/04/16 19:54:00 KILN OPERATOR HELPER Notes: (Same as: BD Posiflush) Start Date: 05/05/16 Stop Date: 05/06/16 Status: DiscontinuedXanax 1 mg oral tablet 1 mg, 2 tab, Route: PO, Drug form: TAB, Q8H, Dosing Weight 131.7, kg, PRN Anxiety, Start date: 05/05/16 22:49:00 KILN OPERATOR HELPER, Duration: 30 day, Stop date: 22:48:00 KILN OPERATOR HELPER Notes: With food or milk(Same as: Xanax) Start Date: 05/05/16 Stop Date: 05/06/16 Status: Discontinued Results ELECTROLYTES Most recent to oldest [Reference Range]: 1 2 3 Sodium Lvl [135-145 mEq/L] 140 mEq/L 139 mEq/L (05/06/16 2:42 AM) (05/05/16 5:11 PM) Potassium Lvl [3.5-5.1 mEq/L] 3.8 mEq/L 3.7 mEq/L (05/06/16 2:42 AM) (05/05/16 5:11 PM) Chloride Lvl [95-109 mEq/L] 105 mEq/L 105 mEq/L (05/06/16 2:42 AM) (05/05/16 5:11 PM) CO2 [24-32 mEq/L] 28 mEq/L 28 mEq/L (05/06/16 2:42 AM) (05/05/16 5:11 PM) AGAP [10.0-20.0 mEq/L] 10.8 mEq/L 9.7 mEq/L (05/06/16 2:42 AM) *LOW* (05/05/16 5:11 PM) CHEM PANEL Most recent to oldest [Reference Range]: 1 2 3 Creatinine Lvl [0.50-1.40 mg/dL] 0.86 mg/dL 1.01 mg/dL (05/06/16 2:42 AM) (05/05/16 5:11 PM) eGFR 103 mL/min/1.73m2 1 88 mL/min/1.73m2 2 *NA* *NA* (05/06/16 2:42 AM) (05/05/16 5:11 PM) BUN [7-22 mg/dL] 18 mg/dL 17 mg/dL (05/06/16 2:42 AM) (05/05/16 5:11 PM) B/C Ratio [6-25] 17 (05/05/16 5:11 PM) Glucose Lvl [70-99 mg/dL] 123 mg/dL 137 mg/dL *HI* *HI* (05/06/16 2:42 AM) (05/05/16 5:11 PM) Total Protein [6.4-8.4 g/dL] 7.8 g/dL (05/05/16 5:11 PM) Albumin Lvl [3.5-5.0 g/dL] 3.3 g/dL *LOW* (05/05/16 5:11 PM) Globulin [2.7-4.2 g/dL] 4.5 g/dL *HI* (05/05/16 5:11 PM) A/G Ratio [0.7-1.6] 0.7 (05/05/16 5:11 PM) Calcium Lvl [8.5-10.5 mg/dL] 8.7 mg/dL 8.6 mg/dL (05/06/16 2:42 AM) (05/05/16 5:11 PM) ALT [0-65 unit/L] 34 unit/L (05/05/16 5:11 PM) AST [0-37 unit/L] 16 unit/L (05/05/16 5:11 PM) Alk Phos [39-136 unit/L] 133 unit/L (05/05/16 5:11 PM) Bili Total [0.2-1.3 mg/dL] 0.4 mg/dL (05/05/16 5:11 PM) 1Result Comment: The eGFR is calculated [...] to oldest [Reference Range]: 1 2 3 Total CK [12-191 unit/L] 80 unit/L (05/05/16 5:11 PM) CK MB [0.5-3.6 ng/mL] 0.8 ng/mL (05/05/16 5:11 PM) CK MB Index [0.0-2.5] 1.0 (05/05/16 5:11 PM) Troponin-I [0.00-0.40 ng/mL] <0.02 ng/mL <0.02 ng/mL (05/06/16 9:25 AM) (05/05/16 5:11 PM) URINE AND STOOL Most recent to oldest [Reference Range]: 1 2 3 UA Turbidity [Clear] Clear (05/05/16 10:09 PM) UA Color [Yellow] Yellow *NA* (05/05/16 10:09 PM) UA pH [5.0-8.0] 6.0 (05/05/16 10:09 PM) UA Spec Grav [<=1.030] >=1.030 *ABN* (05/05/16 10:09 PM) UA Glucose [Negative] Negative (05/05/16 10:09 PM) UA Blood [Negative] Negative (05/05/16 10:09 PM) UA Ketones [Negative] Negative *NA* (05/05/16 10:09 PM) UA Protein [Negative] Negative (05/05/16 10:09 PM) UA Urobilinogen [0.1-1.0 EU/dL] 0.2 EU/dL (05/05/16 10:09 PM) UA Bili [Negative] Negative *NA* (05/05/16 10:09 PM) UA Leuk Est [Negative] Negative (05/05/16 10:09 PM) UA Nitrite [Negative] Negative (05/05/16 10:09 PM) UA WBC [None Seen] None Seen (05/05/16 10:09 PM) UA RBC [0-2 /HPF] 0-2 /HPF (05/05/16 10:09 PM) UA Bacteria [None Seen] None Seen (05/05/16 10:09 PM) UA Sq Epi [Few] None Seen (05/05/16 10:09 PM) HEMATOLOGY Most recent to oldest 1 2 3 [Reference Range]: WBC [3.7-10.4 K/CMM] 9.9 K/CMM 11.0 K/CMM 10.6 K/CMM (05/06/16 2:42 AM) *HI* *HI* (05/05/16 9:38 PM) (05/05/16 5:11 PM) RBC [4.70-6.10 M/CMM] 5.11 M/CMM 5.24 M/CMM 5.39 M/CMM (05/06/16 2:42 AM) (05/05/16 9:38 PM) (05/05/16 5:11 PM) Hgb [14.0-18.0 g/dL] 11.8 g/dL 12.2 g/dL 12.6 g/dL *LOW* *LOW* *LOW* (05/06/16 2:42 AM) (05/05/16 9:38 PM) (05/05/16 5:11 PM) Hct [42.0-54.0 %] 36.2 % 36.5 % 37.4 % *LOW* *LOW* *LOW* (05/06/16 2:42 AM) (05/05/16 9:38 PM) (05/05/16: PM) MCV [80.0-94.0 fL] 70.8 fL 69.7 fL 69.5 fL *LOW* *LOW* *LOW* (05/06/16 2:42 AM) (05/05/16 9:38 PM) (05/05/16: PM) MCH [27.0-31.0 pg] 23.0 pg 23.3 pg 23.4 pg *LOW* *LOW* *LOW* (05/06/16 2:42 AM) (05/05/16 9:38 PM) (05/05/16: PM) MCHC [32.0-36.0 g/dL] 32.5 g/dL 33.4 g/dL 33.6 g/dL (05/06/16 2:42 AM) (05/05/16 9:38 PM) (05/05/16: PM) RDW [11.5-14.5 %] 17.1 % 17.5 % 16.9 % *HI* *HI* *HI* (05/06/16 2:42 AM) (05/05/16 9:38 PM) (05/05/16: PM) Platelet [133-450 K/CMM] 272 K/CMM 276 K/CMM 306 K/CMM (05/06/16 2:42 AM) (05/05/16 9:38 PM) (05/05/16 5:11 PM) MPV [7.4-10.4 fL] 7.8 fL 7.2 fL 7.3 fL (05/06/16 2:42 AM) *LOW* *LOW* (05/05/16 9:38 PM) (05/05/16:11 PM) Segs [45.0-75.0 %] 65.2 % 65.2 % 70.8 % (05/06/16 2:42 AM) (05/05/16 9:38 PM) (05/05/16 5:11 PM) Lymphocytes [20.0-40.0 %] 24.8 % 24.8 % 19.9 % (05/06/16 2:42 AM) (05/05/16 9:38 PM) *LOW* (05/05/16 5:11 PM) Monocytes [2.0-12.0 %] 7.9 % 7.9 % 7.5 % (05/06/16 2:42 AM) (05/05/16 9:38 PM) (05/05/16 5:11 PM) Eosinophils [0.0-4.0 %] 1.7 % 1.4 % 1.1 % (05/06/16 2:42 AM) (05/05/16 9:38 PM) (05/05/16 5:11 PM) Basophils [0.0-1.0 %] 0.4 % 0.7 % 0.7 % (05/06/16 2:42 AM) (05/05/16 9:38 PM) (05/05/16 5:11 PM) Segs-Bands # [1.5-8.1 6.5 K/CMM 7.1 K/CMM 7.5 K/CMM K/CMM] (05/06/16 2:42 AM) (05/05/16 9:38 PM) (05/05/16 5:11 PM) Lymphocytes # [1.0-5.5 2.5 K/CMM 2.7 K/CMM 2.1 K/CMM K/CMM] (05/06/16 2:42 AM) (05/05/16 9:38 PM) (05/05/16 5:11 PM) Monocytes # [0.0-0.8 0.8 K/CMM 0.9 K/CMM 0.8 K/CMM K/CMM] (05/06/16 2:42 AM) *HI* (05/05/16 5:11 PM) (05/05/16 9:38 PM) Eosinophils # [0.0-0.5 0.2 K/CMM 0.2 K/CMM 0.1 K/CMM K/CMM] (05/06/16 2:42 AM) (05/05/16 9:38 PM) (05/05/16 5:11 PM) Basophils # [0.0-0.2 0.1 K/CMM 0.1 K/CMM K/CMM] (05/05/16 9:38 PM) (05/05/16 5:11 PM) Microcyte [None Seen] 2+ 2+ 2+ *ABN* *ABN* *ABN* (05/06/16 2:42 AM) (05/05/16 9:38 PM) (05/05/16 5:11 PM) PT [12.0-14.7 seconds] 13.4 seconds 13.9 seconds (05/06/16 2:20 AM) (05/05/16 7:53 PM) INR [0.85-1.17] 1.00 1.05 (05/06/16 2:20 AM) (05/05/16 7:53 PM) PTT [22.9-35.8 seconds] 50.1 seconds 49.1 seconds 35.3 seconds *HI* *HI* (05/05/16 7:53 PM) (05/06/16 9:25 AM) (05/06/16 2:20 AM) BACTERIAL - SEROLOGY Most recent to oldest [Reference Range]: 1 2 3 MRSA by PCR Negative (05/05/16 10:06 PM) Immunizations Not Given Vaccine Date Status [...] Extracted from: Title: Discharge Summary * Author: Geronimo Dupont MD Date: Patient: ANNABEL MCCONNELL Age: 46 years Sex: Male : 1970 Associated Diagnoses: None Author: Geronimo Dupont MD Results Review General results Labs (Last four charted values) WBC 9.9 (MAY 06) H 11.0 (MAY 05) H 10.6 (MAY 05) Hgb L 11.8 (MAY 06) L 12.2 (APR 13) L 12.6 (MAY 05) Hct L 36.2 (APR 14) L 36.5 (APR 13) L 37.4 (APR 13) Plt 272 (APR 14) 276 (APR 13) 306 (MAY 05) Na 140 (APR 14) 139 (MAY 05) K 3.8 (MAY 06) 3.7 (MAY 05) CO2 28 (MAY 06) 28 (MAY 05) Cl 105 (MAY 06) 105 (MAY 05) Cr 0.86 (MAY 06) 1.01 (MAY 05) BUN 18 (MAY 06) 17 (MAY 05) Glucose Random H 123 (MAY 06) H 137 (MAY 05) Ca 8.7 (MAY 06) 8.6 (MAY 05) PT 13.4 (MAY 06) 13.9 (MAY 05) INR 1.00 (MAY 06) 1.05 (MAY 05) PTT H 50.1 (MAY 06) H 49.1 (MAY 06) 35.3 (MAY 05) Troponin <0.02 (MAY 06) <0.02 (MAY 05) CK MB 0.8 (MAY 05) Total CK 80 (MAY 05) Discharge Information 1. chest pain - ACS ruled out 2. CAD with recent stent to RCA in december 2015- plan as above 3. Diabetes- sliding scale coverage 4. tooth infection- patient on clindamycin at home will continue course Physical Examination VS/Measurements Vital Signs (last 24 hrs) Last Charted Temp Oral 97.4 DegF (MAY 06:24) Heart Rate Peripheral L 56bpm (MAY 06:24) Resp Rate 14 BRMIN (MAY 06:) SBP 117 mmHg (MAY 06:24) DBP 77 mmHg (MAY 06 11:24) SpO2 97 % (MAY 06:) Weight 131.7 kg (MAY 05 21:12) Height 177.8 cm (MAY 05 21:12) BMI 41.66 (MAY 05 21:12) General: Alert and oriented, No acute distress. Eye: Pupils are equal, round and reactive to light, Extraocular movements are intact. HENT: Normocephalic. Neck: Supple, Non-tender. Respiratory: Lungs are clear to auscultation, Respirations are non-labored, Breath sounds are equal. Cardiovascular: Normal rate, Regular rhythm, No murmur. Gastrointestinal: Soft, Non-tender, Non-distended. Musculoskeletal Normal range of motion. Normal strength. Integumentary: Warm. Neurologic: Alert, Oriented, Normal sensory. Psychiatric: Cooperative, Appropriate mood & affect. Hospital Course patient's pain resolved quickly, descirbed more as possible palpitations. ACS ruled out and he had no events prior to discharge. Cardiology saw a patient and arranged for outpatient follow up. Discharge Plan Discharge Summary Plan Discharge Status: improved. Discharge instructions given: to patient. Discharge disposition: discharge to home. Prescriptions: continue same medications. Addendum by Geronimo Dupont MD on 05/06/2016 16:42 time spent >35 minutes Extracted from: Title: Clinical Document Author: Nimesh Coyle MD Date: 05/06/16 Cardiology Note Nimesh Coyle MD, PA SUBJECTIVE: CC: CP HPI: This is a 46 yo w/ below PMHx who p/w CP. Occurred around 315pm on the day of admission while patient was sitting and watching a [employer] game. Suddnely developed retrosternal pain, no radiation, minor cribed as sharp and pressure, continued to worsen. Tried SL nitro, first one didn't work, 2nd and 3rd ones helped a little. Pt was at rest and didn't exert himself during this time. He checked his BP an d HR, HR in 90s. Associated with SOB and lightheadedness. Nausea but no vomiting. No diaphoresis. Pt had STEMI at [facility], required RCA stent placement in 11/2015. He takes his meds regularly. PMHx: CAD/MA Kidney stone DM CHF HTN COPD HLD GREGORIO (does not wear CPAP or BiPAP at night) AAA PSHx: coronary stent placement Lithotripsy FHx: Father: COPD; Congestive heart disease.. Mother: High blood pressure; Osteoarthritis SHx: Former tobacco, quit 2 yrs ago Former EtOH, quit 16 yrs ago Denies illicit drugs Meds: See medicine reconciliation Vitals and Temp: Vitals Tmp(F) Pulse BP RR SpO2 FIO2 05/06 09:00 ---- 89 130/83 20 96 --- 05/06 08:00 97.8 67 130/73 12 97 --- 05/06 07:41 ---- --- ----- -- 98 21% 05/06 07:40 ---- --- ----- 18 98 21% 05/06 07:00 ---- 68 ----- -- --- --- 24 Hr Tmax: 98.3F (36.83c) at 05/06 00:00 Vital Signs are the last 5 in the past 48 hours. Scheduled Meds (7): 05/06/16 aspirin (aspirin 325 mg tablet) 325 mg PO Daily 05/05/16 atorvastatin (Lipitor) 80 mg PO Bedtime 05/05/16 clindamycin 300 mg PO [id number] 05/07/16 clopidogrel (Plavix) 75 mg PO Daily 05/06/16 lisinopril 2.5 mg PO Daily 05/06/16 pantoprazole (Protonix) 40 mg PO Before Dinner 05/05/16 sodium chloride (Saline Flush 0.9%) 10 ml IVP Q12H Continuous Infusions (2): 05/05/16 heparin 25,000 unit [12 unit/kg/hr] + Premix Diluent Dextrose 5% 500 mL (heparin additive 25,000 unit [12 unit/kg/hr] + Premix Diluent Dextrose 5% 500 mL) 500 mL 22.73 ml/hr 05/06/16 (Suspended) nitroglycerin 100 mg/250ml D5W INJ 100 mg 100 mg Titrate Labs (Last four charted values) WBC 9.9 (MAY 06) H 11.0 (MAY 05) H 10.6 (MAY 05) Hgb L 11.8 (MAY 06) L 12.2 (MAY 05) L 12.6 (MAY 05) Hct L 36.2 (MAY 06) L 36.5 (MAY 05) L 37.4 (MAY 05) Plt 272 (MAY 06) 276 (MAY 05) 306 (MAY 05) Na 140 (MAY 06) 139 (MAY 05) K 3.8 (MAY 06) 3.7 (MAY 05) CO2 28 (MAY 06) 28 (MAY 05) Cl 105 (MAY 06) 105 (MAY 05) Cr 0.86 (MAY 06) 1.01 (MAY 05) BUN 18 (MAY 06) 17 (MAY 05) Glucose Random H 123 (MAY 06) H 137 (MAY 05) Ca 8.7 (MAY 06) 8.6 (MAY 05) PT 13.4 (MAY 06) 13.9 (MAY 05) INR 1.00 (MAY 06) 1.05 (MAY 05) PTT H 50.1 (MAY 06) H 49.1 (MAY 06) 35.3 (MAY 05) Troponin <0.02 (MAY 06) <0.02 (MAY 05) CK MB 0.8 (MAY 05) Total CK 80 (MAY 05) EXAM: Good BP control; NSR; afebrile Head: normocephalic and atraumatic Neck: no carotid bruit; no JVD CV: Regular; -S3; no significant murmurs Lungs: Clear; no wheezing; good air entry Abd: soft and no organomegaly; + bowel sounds Ext: no CCE; good pulses distally Neuro: nonfocal; oriented *3 Psych: appropriate ASSESSMENT: Atypical chest pain and palpitations- resolved Negative cardiac enzymes CAD s/p STEMI and PCI RCA in 11/[address] [facility] CHF diagnosed before the STEMI DM- controlled Obesity- has been steadily losing weight since his MA ECG with NSR and RBBB PLAN: OK to dc home No new meds He is following with cardiology clinic Cardiac diabetic diet Extracted from: Title: Progress Note Complex * Author: Geronimo Dupont MD Date: Impression and Plan 1. chest pain - no more pain, based on history he may have been in afib at home. c/w heparin drip, telemetry monitoring resume his beta blocke it was held as patient got hypotensice on nitro drip which was stopped last night; c/wp lisinopril, aspirin, plavix statin, trend troponins, echo cardiology consulted 2. CAD with recent stent to RCA in december 2015- plan as above 3. Diabetes- sliding scale coverage 4. tooth infection- patient on clindamycin at home will continue course full code, Extracted from: Title: Clinical Document Author: Carson Boyd MD Date: 05/05/16 History and Physical Attending: Jarad Hughes MD Service: Emergency Medicine Code status: None Specified=FULL CODE Reason for Admission: CHEST PAIN Working DRG: None Documented Isolation: None Documented Consulting Physicians: (none on file) CC: CP HPI: This is a 46 yo w/ below PMHx who p/w CP. Occurred around 315pm on the day of admission while patient was sitting and watching a [employer] game. Suddnely developed retrosternal pain, no radiation, minor cribed as sharp and pressure, continued to worsen. Tried SL nitro, first one didn't work, 2nd and 3rd ones helped a little. Pt was at rest and didn't exert himself during this time. He checked his BP an d HR, HR in 90s. Associated with SOB and lightheadedness. Nausea but no vomiting. No diaphoresis. Pt had similar but more severe CP in November 2015, found to have STEMI at [facility] , required RCA stent placement. PMHx: CAD/MA Kidney stone DM CHF HTN COPD HLD GREGORIO (does not wear CPAP or BiPAP at night) AAA PSHx: coronary stent placement Lithotripsy FHx: Father: COPD; Congestive heart disease.. Mother: High blood pressure; Osteoarthritis SHx: Former tobacco, quit 2 yrs ago Former EtOH, quit 16 yrs ago Denies illicit drugs Meds: See medicine reconciliation Medication List Active Medications Ordered sodium chloride: 10 mL, IVP, PRN, PRN: Line Flush. Documented ALPRAZOLam: 1 mg, 1 tab, PO, Q8H, PRN: Anxiety, 0 Refill(s). aspirin: 81 mg, 1 tab, PO, Daily, 90 tab, 3 Refill(s). atorvastatin: 80 mg, 1 tab, PO, Bedtime, 30 tab, 0 Refill(s). clopidogrel: 75 mg, 1 tab, PO, Daily, 30 tab, 0 Refill(s). furosemide: 20 mg, 1 tab, PO, Daily, 30 tab, 0 Refill(s). isosorbide mononitrate: 30 mg, 1 tab, PO, QAM, 30 tab, 0 Refill(s). lisinopril: 2.5 mg, 1 tab, PO, Daily, 30 tab, 0 Refill(s). metFORMIN-repaglinide: 1 tab, PO, BID, 60 tab, 0 Refill(s). pantoprazole: 40 mg, 1 tab, PO, Daily, 30 tab, 0 Refill(s). potassium chloride: 20 mEq, 1 tab, PO, Daily, 90 tab, 1 Refill(s). Medications Inactivated in the Last 72 Hours aspirin: 243 mg, 3 tab, PYXIS, ONCE. aspirin: 243 mg, PO, ONCE. morphine Sulfate: 4 mg, IVP, ONCE. morphine Sulfate: 4 mg, 1 mL, PYXIS, ONCE. nitroglycerin: 0.4 mg, 1 tab, PYXIS, ONCE. nitroglycerin: 1 inch, TOP, ONCE. nitroglycerin: 1 inch, PYXIS, ONCE. ondansetron: 4 mg, 2 mL, PYXIS, ONCE. Allergies: traMADol, Flomax, beta blockers--> bradycardic, Stadol ROS: See HPI. All other systems reviewed by myself are negative unless noted above. Physical Exam: Vitals Tmp(F) Pulse BP RR SpO2 FIO2 05/05 18:48 ---- 85 123/70 15 98 --- 05/05 18:33 ---- 91 118/65 19 99 --- 05/05 17:45 ---- 85 124/73 19 97 4.0L/m 05/05 17:44 ---- 87 113/70 13 99 4.0L/m 05/05 17:27 ---- 90 128/71 22 99 4.0L/m 24 Hr Tmax: 97.9F (36.61c) at 05/05 17:05 Vital Signs are the last 5 in the past 48 hours. General: NAD, nontoxic appearing HEENT: NCAT, PERRL, MMM, oropharynx is clear Cardiovascular: RRR, S1S2 Respiratory: CTAB Abdomen: soft, +BS, NT/ND Extremities: no b/l LE edema Skin: no rashes Neurologic: comprehension and speech intact, CN III-XII grossly intact Musculoskeletal: symmetric strength in all extremities Rectal/: deferred Labs: 24hr Labs 05/05 1712 Glucose POC 121 H 05/05 1711 Sodium Lvl 139 Potassium Lvl 3.7 Chloride Lvl 105 CO2 28 AGAP 9.7 L Glucose Lvl 137 H Creatinine Lvl 1.01 BUN 17 B/C Ratio 17 Total Protein 7.8 Albumin Lvl 3.3 L Globulin 4.5 H A/G Ratio 0.7 Calcium Lvl 8.6 ALT 34 AST 16 Alk Phos 133 Bili Total 0.4 eGFR 88 Total CK 80 Troponin-I <0.02 CK MB 0.8 CK MB Index 1.0 WBC 10.6 H RBC 5.39 Hgb 12.6 L Hct 37.4 L MCV 69.5 L MCH 23.4 L MCHC 33.6 RDW 16.9 H Platelet 306 MPV 7.3 L Segs 70.8 Monocytes 7.5 Lymphocytes 19.9 L Eosinophils 1.1 Basophils 0.7 Segs-Bands # 7.5 Lymphocytes # 2.1 Monocytes # 0.8 Eosinophils # 0.1 Basophils # 0.1 Microcyte 2+ Micro: none Imaging: Chest 1view DX 05/05/16 17:37:50 IMPRESSION: Stable mildly enlarged cardiac silhouette. Atherosclerotic thoracic aorta. No focal consolidation, significant pleural effusion or pneumothorax. SL: [id number] Signed By: Tito Farnsworth MD EKG: NSR, RBBB, T wave inversions in V1-V4 Assessment and Plan: This is a 46 yo who p/w retrosternal CP at rest, had recent RCA stent placement, he is compliant with his aspirin, plavix, and other meds. Did not respond adequately to SL nitro. # unstable angina, h/o RCA stent: admit to IMU, heparin gtt, aspirin, plavix, statin, pt hypotensive on nitro gtt so will d/c and give nitro paste, trend cardiac enzymes, EKG reviewed, telemetry, pain and nausea control, cardiology consult # chronic microcytic anemia: # h/o tooth infection: c/w po clindamycin # h/o DM: SSI Prophylaxis: heparin gtt Diet: diabetic, NPO
[2017-12-25 14:25] LABS: Absolute Monocytes 0.6 K/uL (0.1-1.3); Absolute Neutrophil 6.6 K/uL (1.8-8.0); Basophils % 0.4 % (0-1.3); Eosinophils % 1.4 % (0-4.4); Hematocrit 37.7 % (39.6-49.0); Lymphocytes % 21.1 % (15.3-44.8); MCV 76.9 fL (80-100); Monocytes % 6.4 % (3.3-12.3); RBC Red Blood Cell Count 4.91 M/uL (4.33-5.43)
--- NOTE | 2017-12-25 14:36 | RAD REPORT ---
EXAM DESCRIPTION: RAD - Chest Single View - 12/25/2017 2:25 pm CLINICAL HISTORY: Left-sided chest pain COMPARISON: August 19 TECHNIQUE: AP portable chest image was obtained 1353 hours . FINDINGS: No peripheral mass or consolidation. No failure or volume overload. Interstitial markings are prominent but not clearly different. Heart size and vasculature within normal limits for portable imaging and stable. No measurable pleural effusion and no pneumothorax. No gross bony abnormality se en. No acute aortic findings suspected. IMPRESSION: No acute cardiopulmonary process. The above detailed chest findings are similar to August 19.
[2017-12-25 14:43] LABS: BUN Blood Urea Nitrogen 11 mg/dL (7-18); Bicarbonate 29 mmol/L (21-32); Glucose Level 190 mg/dL (74-106); Sodium Level 136 mmol/L (136-145)
[2017-12-25] MEDS ORDERED: MEPERIDINE HCL 50 MG/ML AMP ONE (14:45)
--- NOTE | 2017-12-25 15:09 | ER ---
Nurse's Notes [facility] Name: Marquis Nelson Age: 47 yrs Sex: Male : 1970 Arrival Date: 12/25/2017 Time: 12:54 Bed 19 Private MD: out of town, doctor Diagnosis: Chest pain, unspecified Presentation: 12/25 12:59 Presenting complaint: Patient states: Left sided CP that started this morning, sg described as stabbing sharp that radiates into the left shoulder blade, reports taking two sprays of nitro with some relief to the pain but it is now back, reports nausea, denies fever/vomiting/diarrhea. Transition of care: patient was not received from another setting of care. Onset of symptoms was December 25, 2017. Risk Assessment: Do you want to hurt yourself or someone else? Patient reports no desire to harm self or others. Initial Sepsis Screen: Does the patient meet any 2 criteria? No. Patient's initial sepsis screen is negative. Does the patient have a suspected source of infection? No. Patient's initial sepsis screen is negative. Care prior to arrival: None. 12:59 Method Of Arrival: Ambulatory sg 12:59 Acuity: THANH 3 sg Historical: - Allergies: 12:58 Beta Blockers (sensitive/hypotension); sg 12:58 Flomax; sg 12:58 Neurontin; sg 12:58 Skelaxin; sg 12:58 Stadol; sg 12:58 tramadol; sg - PMHx: 12:58 AAA; Anemia; Anxiety; Atrial Fib; CHF; GERD; High Cholesterol; Hypertension; Kidney sg stones; Myocardial infarction; Pulmonary Embolism; R BUNDLE BRANCH BLOCK; Sleep Apnea; - PSHx: 12:58 Hernia repair; sg - Immunization history:: Adult Immunizations up to date. - Social history:: Smoking status: Patient/guardian denies using tobacco. - Ebola Screening: : Patient negative for fever greater than or equal to 101.5 degrees Fahrenheit, and additional compatible Ebola Virus Disease symptoms Patient denies exposure to infectious person Patient denies travel to an Ebola-affected area in the 21 days before illness onset No symptoms or risks identified at this time. - Family history:: not pertinent. - Hospitalizations: : No recent hospitalization is reported. Screenin:31 Abuse screen: Denies threats or abuse. Denies injuries from another. Nutritional aj1 screening: No deficits noted. Tuberculosis screening: No symptoms or risk factors identified. 16:31 Fall Risk None identified. aj1 Assessment: 13:31 General: Appears in no apparent distress. uncomfortable, Behavior is cooperative, aj1 anxious. Pain: Complains of pain in mid-sternal area Pain radiates to back Pain currently is 10 out of 10 on a pain scale. Quality of pain is described as pressure, stabbing, Pain began 2 hours ago. Neuro: Level of Consciousness is awake, alert, obeys commands, Oriented to person, place, time, situation, Speech is normal, Facial symmetry appears normal. Cardiovascular: Reports chest pain, diaphoresis, nausea, palpitations, shortness of breath, Heart tones S1 S2 present Patient's skin is warm and dry. Rhythm is regular Chest pain is described as Pain is 10 out of 10 on a pain scale. quality is pressure, stabbing, is located in substernal area radiates back. Respiratory: Reports shortness of breath Airway is patent Respiratory effort is even, unlabored, Respiratory pattern is regular, symmetrical, Breath sounds are clear bilaterally. Denies cough. GI: Reports nausea. : No signs and/or symptoms were reported regarding the genitourinary system. EENT: No signs and/or symptoms were reported regarding the EENT system. Derm: No signs and/or symptoms reported regarding the dermatologic system. Skin is pink, warm \T\ dry. normal. Musculoskeletal: No signs and/or symptoms reported regarding the musculoskeletal system. Circulation, motion, and sensation intact. 14:30 Reassessment: Patient appears in no apparent distress at this time. No changes from aj1 previously documented assessment. Patient and/or family updated on plan of care and expected duration. Pain level reassessed. Patient is alert, oriented x 3, equal unlabored respirations, skin warm/dry/pink. 15:00 Reassessment: Patient states his pain has returned. Notified Dr. Calvin. Repeat EKG aj1 ordered. 15:30 Reassessment: Patient states his pain is coming back. Notified Dr. Calvin, no orders aj1 received. 15:30 Reassessment: Patient and/or family updated on plan of care and expected duration. Pain aj1 level reassessed. General: Behavior is calm, cooperative. Pain: Complains of pain in mid-sternal area. Neuro: Level of Consciousness is awake, alert, obeys commands, Oriented to person, place, time, situation, Speech is normal, Facial symmetry appears normal. Cardiovascular: Patient's skin is warm and dry. Rhythm is sinus rhythm. Respiratory: Airway is patent Respiratory effort is even, unlabored, Respiratory pattern is regular, symmetrical. Derm: Skin is pink, warm \T\ dry. normal. Musculoskeletal: No signs and/or symptoms reported regarding the musculoskeletal system. Circulation, motion, and sensation intact. 15:50 Reassessment: Patient states that his pain is coming back. Notified Dr. Calvin. No aj1 orders received. 16:28 Reassessment: Patient appears in no apparent distress at this time. No changes from aj1 previously documented assessment. Patient and/or family updated on plan of care and expected duration. Pain level reassessed. Patient is alert, oriented x 3, equal unlabored respirations, skin warm/dry/pink. Vital Signs: 13:00 BP 110 / 73; Resp 19 S; Temp 97.9; Pulse Ox 98% on R/A; Weight 128.37 kg; Pain 10/10; sg 13:00 Pulse 75; sg 14:46 BP 118 / 77; Pulse 79; Resp 18; Pulse Ox 96% on R/A; mh5 16:30 BP 112 / 72; Pulse 72; Resp 18; Pulse Ox 99% ; aj1 ED Course: 12:54 Patient arrived in ED. sb2 12:54 out of town, doctor is Private Physician. sb2 13:00 Triage completed. sg 13:07 EKG done, reviewed by Nawaf Calvin MD. at1 13:30 Initial lab(s) drawn, by wy, held in ED. mh5 13:31 Nawaf Calvin MD is Attending Physician. rn 13:31 Cailin Guillermo, NAVJOT is Primary Nurse. aj1 13:31 No provider procedures requiring assistance completed. Patient maintains SpO2 aj1 saturation greater than 95% on room air. 13:31 Patient has correct armband on for positive identification. screen roller on. Pulse aj1 ox on. NIBP on. 13:38 Inserted saline lock: 20 gauge in right upper arm, using aseptic technique. Blood mh5 collected. 13:40 Patient has correct armband on for positive identification. Placed in gown. Bed in low mh5 position. Call light in reach. Side rails up X 1. Adult w/ patient. Pillow given. 13:55 sent to lab. 5 13:55 CBC with Automated Diff Sent. 5 13:56 Troponin (emerg Dept Use Only) Sent. [facility] 13:56 Basic Metabolic Panel Sent. 5 13:56 CBC with Diff Sent. 5 14:26 XRAY Chest (1 view) In Process Unspecified. EDMS 15:30 EKG done, by tractor technician. reviewed by Nawaf Calvin MD. [facility] 16:30 IV discontinued, intact, bleeding controlled, No redness/swelling at site. Pressure aj1 dressing applied. Administered Medications: 14:47 Drug: Demerol 50 mg Route: IVP; Site: right antecubital; 16:32 Follow up: Response: No adverse reaction [facility] 16:24 Drug: Demerol - Meperidine 12.5 mg Route: IVP; Site: right antecubital; aj1 16:33 Follow up: Response: No adverse reaction aj Outcome: 15:09 Discharge ordered by . rn 16:31 Discharged to home ambulatory. aj1 16:31 Condition: good 16:31 Discharge instructions given to patient, Instructed on discharge instructions, follow up and referral plans. Demonstrated understanding of instructions, follow-up care. 16:33 Patient left the ED. aj1 Signatures: Dispatcher [employer] EDCailin Olguin RN NAVJOT [email or web address] Alfonso Hamilton, RN Nawaf Zavaleta MD MD rn Smirch, Shelby, RN RN ss gonzales, Amanda, motor bike mechanic EKG Tat1 Suad Darby 5 Kaelyn Friedman Shakira 3
--- NOTE | 2017-12-25 15:10 | EDPHYS ---
Physician Documentation [facility] Name: Marquis Nelson Age: 47 yrs Sex: Male : 1970 Arrival Date: 12/25/2017 Time: 12:54 Bed 19 Private MD: out of town, doctor ED Physician Nawaf Calvin HPI: 12/25 13:43 This 47 yrs old Male presents to ER via Ambulatory with complaints of Chest rn Pain, Shortness Of Breath. 13:43 The patient or guardian reports chest pain that is located primarily in the substernal rn area. Onset: this morning. The pain radiates to the left arm. The chest pain is described as aching. Duration: The patient or guardian reports multiple episodes, that are intermittent. Modifying factors: The symptoms are alleviated by nothing. the symptoms are aggravated by nothing. Severity of pain: At its worst the pain was moderate in the emergency department the pain is unchanged. The patient has experienced similar episodes in the past. Reports another episode of chest pain, has had AL back in 2016, but also diagnosed with coronary vasospasm, on nitroglycerin, pain management, has outpt cath and EP study scheduled in 2 weeks at [facility]. NO new fever/cough. . Historical: - Allergies: 12:58 Beta Blockers (sensitive/hypotension); sg 12:58 Flomax; sg 12:58 Neurontin; sg 12:58 Skelaxin; sg 12:58 Stadol; sg 12:58 tramadol; sg - PMHx: 12:58 AAA; Anemia; Anxiety; Atrial Fib; CHF; GERD; High Cholesterol; Hypertension; Kidney sg stones; Myocardial infarction; Pulmonary Embolism; R BUNDLE BRANCH BLOCK; Sleep Apnea; - PSHx: 12:58 Hernia repair; sg - Immunization history:: Adult Immunizations up to date. - Social history:: Smoking status: Patient/guardian denies using tobacco. - Ebola Screening: : Patient negative for fever greater than or equal to 101.5 degrees Fahrenheit, and additional compatible Ebola Virus Disease symptoms Patient denies exposure to infectious person Patient denies travel to an Ebola-affected area in the 21 days before illness onset No symptoms or risks identified at this time. - Family history:: not pertinent. - Hospitalizations: : No recent hospitalization is reported. ROS: 13:43 Constitutional: Negative for fever, chills, and weight loss, Eyes: Negative for injury, rn pain, redness, and discharge, Neck: Negative for injury, pain, and swelling, Cardiovascular: Negative for palpitations, and edema, Respiratory: Negative for shortness of breath, cough, wheezing, and pleuritic chest pain, Abdomen/GI: Negative for abdominal pain, diarrhea, and constipation, MS/Extremity: Negative for injury and deformity, Skin: Negative for injury, rash, and discoloration, Neuro: Negative for headache, weakness, numbness, tingling, and seizure. Exam: 13:43 Constitutional: This is a well developed, well nourished patient who is awake, alert, rn appears uncomfortable Head/Face: Normocephalic, atraumatic. Eyes: Pupils equal round and reactive to light, extra-ocular motions intact. Lids and lashes normal. Conjunctiva and sclera are non-icteric and not injected. Cornea within normal limits. Periorbital areas with no swelling, redness, or edema. Cardiovascular: Regular rate and rhythm with a normal S1 and S2. No gallops, murmurs, or rubs. Normal PMI, no JVD. No pulse deficits. Respiratory: Lungs have equal breath sounds bilaterally, clear to auscultation and percussion. No rales, rhonchi or wheezes noted. No increased work of breathing, no retractions or nasal flaring. Abdomen/GI: Soft, non-tender, with normal bowel sounds. No distension or tympany. No guarding or rebound. No evidence of tenderness throughout. Skin: Warm, dry with normal turgor. Normal color with no rashes, no lesions, and no evidence of cellulitis. MS/ Extremity: Pulses equal, no cyanosis. Neurovascular intact. Full, normal range of motion. Equal circumference. Neuro: Awake and alert, GCS 15, oriented to person, place, time, and situation. Cranial nerves II-XII grossly intact. Motor strength 5/5 in all extremities. Sensory grossly intact. Cerebellar exam normal. Normal gait. Vital Signs: 13:00 BP 110 / 73; Resp 19 S; Temp 97.9; Pulse Ox 98% on R/A; Weight 128.37 kg; Pain 10/10; sg 13:00 Pulse 75; sg 14:46 BP 118 / 77; Pulse 79; Resp 18; Pulse Ox 96% on R/A; mh5 16:30 BP 112 / 72; Pulse 72; Resp 18; Pulse Ox 99% ; aj1 MDM: 13:31 Patient medically screened. rn 15:07 Differential diagnosis: acute myocardial infarction, acute pericarditis, anxiety, rn coronary artery disease chest wall pain, costochondritis, gastroesophageal reflux disease (GERD), pleurisy, pneumothorax. Data reviewed: vital signs, nurses notes, lab test result(s), EKG, radiologic studies, plain films, and as a result, I will discharge patient. Counseling: I had a detailed discussion with the patient and/or guardian regarding: the historical points, exam findings, and any diagnostic results supporting the discharge/admit diagnosis, lab results, radiology results, the need for outpatient follow up, to return to the emergency department if symptoms worsen or persist or if there are any questions or concerns that arise at home. Response to treatment: the patient's symptoms have mildly improved after treatment, and as a result, I will discharge patient. Special discussion: Based on the patient's history, exam, and Dx evaluation, there is no indication for emergent intervention or inpatient Tx. It is understood by the patient/guardian that if the Sx's persist or worsen they need to return immediately for re-evaluation. I discussed with the patient/guardian in detail that at this point there is no indication for admission to the hospital. It is understood, however, that if the symptoms persist or worsen the patient needs to return immediately for re-evaluation. ED course: No change in ECG, trop negative, will dc home with cardiology f/u as planned for cath/EP study.. 15:54 ED course: Pt states still hurting but in there with legs crossed and watching program rn on portable player. . 12/25 13:40 Order name: CBC with Diff rn 12/25 13:40 Order name: Basic Metabolic Panel; Complete Time: 15:07 rn 12/25 13:40 Order name: XRAY Chest (1 view); Complete Time: 14:38 rn 12/25 13:40 Order name: Troponin (emerg Dept Use Only); Complete Time: 14:38 rn 12/25 13:40 Order name: CBC with Automated Diff; Complete Time: 14:38 EDMS 12/25 13:03 Order name: EKG; Complete Time: 13:03 ss 12/25 13:03 Order name: EKG - Nurse/Tech; Complete Time: 13:03 12/25 13:40 Order name: IV Start; Complete Time: 13:41 rn Administered Medications: 14:47 Drug: Demerol 50 mg Route: IVP; Site: right antecubital; ss 16:32 Follow up: Response: No adverse reaction aj1 16:24 Drug: Demerol - Meperidine 12.5 mg Route: IVP; Site: right antecubital; aj1 16:33 Follow up: Response: No adverse reaction aj1 Disposition: 12/25/17 15:09 Discharged to Home. Impression: Chest pain, unspecified. - Condition is Stable. - Discharge Instructions: Nonspecific Chest Pain. - Medication Reconciliation Form, Thank You Letter, Antibiotic Education, Prescription Opioid Use form. - Follow up: Private Physician; When: As needed; Reason: Recheck today's complaints, Re-evaluation by your physician. - Problem is new. - Symptoms have improved. Signatures: Dispatcher [employer] EDCailin Olguin RN RN aj1 Alfonso Hamilton RN RN Nawaf Calvin MD MD rn Smirch, Shelby, RN RN Corrections: (The following items were deleted from the chart) 13:45 13:43 Constitutional: This is a well developed, well nourished patient who is awake, rn alert, and in no acute distress. rn 16:33 15:09 12/25/2017 15:09 Discharged to Home. Impression: Chest pain, unspecified. aj1 Condition is Stable. Forms are Medication Reconciliation Form, Thank You Letter, Antibiotic Education, Prescription Opioid Use. Follow up: Private Physician; When: As needed; Reason: Recheck today's complaints, Re-evaluation by your physician. Problem is new. Symptoms have improved. rn
[2017-12-25] MEDS ORDERED: MEPERIDINE HCL 25 MG/0.5 ML ONE (16:14)
[2017-12-25 16:53] VITALS: BP 118/77; O2SAT 96
[2017-12-25 16:55] VITALS: TEMP 97.9
--- NOTE | 2017-12-25 18:44 | EKG ---
Test Date: 2017-12-25 Test Time: 13:00:12 Fancy Needleworker: VANESSA MEASUREMENT RESULTS: Intervals: Rate: 77 CT: 168 QRSD: 138 QT: 444 QTc: 502 [place]: P: 31 CT: 168 QRS: 6 T: 4 INTERPRETIVE STATEMENTS: Normal sinus rhythm Right bundle branch block Inferior infarct, age undetermined Abnormal ECG Compared to ECG 09/23/2017 06:48:55 No significant changes Electronically Signed On 12-25-17 18:43:44 CDT by Guilherme Sharma
--- NOTE | 2017-12-25 18:44 | EKG ---
Test Date: 2017-12-25 Test Time: 15:19:25 Food Mixer: SUMI MEASUREMENT RESULTS: Intervals: Rate: 66 MS: 180 QRSD: 146 QT: 458 QTc: 480 [place]: P: 4 MS: 180 QRS: -5 T: -6 INTERPRETIVE STATEMENTS: Normal sinus rhythm Right bundle branch block Inferior infarct, age undetermined Abnormal ECG Compared to ECG 12/25/2017 13:00:12 No significant changes Electronically Signed On 12-25-17 18:43:06 CDT by Guilherme Sharma
== END 2017-12-25 16:33 | disposition home or self-care (01) ==
LOC: ER 12:51
DX: R07.9 Chest pain, unspecified (principal); I11.0 Hypertensive heart disease with heart failure; I50.9 Heart failure, unspecified; Z88.6 Allergy status to analgesic agent; Z88.8 Allergy status to other drugs, medicaments and biological substances
CPT/HCPCS: 36415; 71045; 80048; 84484; 85025; 93005; 96374; 99285; J2175

== ENCOUNTER 2018-01-09 00:33 | Emergency (ER) | payer OTHER ==
--- OUTSIDE RECORDS SUMMARY | 2018-01-09 00:40 | XMS REPORT | Continuity of Care Document ---
:1970 Author Organization Interface Problems Problem Status Onset Classification Date Comments Source Date Reported Discharge Diagnosis: 05/20/2016 Chest pain 016 [place] CHEST PAIN Active [address] ACS, CHEST PAIN Active [facility] 016 [place] Discharge Diagnosis: 04/28/2016 Flank pain 016 [place] KIDNEY STONES Active [facility] 016 [place] Discharge Diagnosis: 03/08/2016 Acute chest pain 016 [place] Discharge Diagnosis: 03/05/2016 Renal calculus 016 [place] KIDNEY STONE Active [address] PYELONEPHRITIS Active [address] 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 [place] Congestive heart Resolved Problem 05/20/2016 2L fluid failure<sup>1</sup> restrictio [place] n/24hrs Diabetes Resolved Problem 05/20/2016 [facility] Hypercholesteremia Resolved Problem 05/20/2016 [facility] Hypertension Resolved Problem 05/20/2016 [facility] Kidney stone Resolved Problem 05/20/2016 [facility] Heart Resolved Problem 05/20/2016 December 04, attack<sup>2</sup> 2016 [place] Bundle branch block, Resolved Problem 05/20/2016 right [place] Sleep apnea Resolved Problem 05/20/2016 [facility] TUBULO-INTERSTITIAL Active [facility] NEPHRITIS, NOT [facility] [place] CHEST PAIN, Active [facility] UNSPECIFIED [place] Medications Medication Details Route Status Patient Ordering Order Source Instructions Provider Date Aspirin 81 mg, 1 tab, Inactive Route: PO, Drug 2015 [place] form: ECTAB, ONCE, Dosing Weight 128.636, kg, Priority: STAT, Start date: 05/17/16 17:16:00 [employer], Stop date: 05/17/16 17:16:00 CSTNotes: Do not crush or chew. (Same As: Ecotrin) Saline Flush 10 mL, Route: Inactive 0.9% IVP, Drug Form: 2015 [place] INJ, Dosing Weight 128.636, kg, PRN, PRN Line Flush, Start date: 05/17/16 15:48:00 [employer], Duration: 30 day, Stop date: 06/16/16 15:47:00 CSTNotes: (Same as: BD Posiflush) Plavix 75 mg, 1 tab, No Longer Route: PO, Drug Active 2015 [place] form: TAB, Daily, Dosing Weight 131.7, kg, Start date: 05/07/16 9:00:00 [employer], Duration: 30 day, Stop date: 06/05/16 9:00:00 CSTNotes: (Same As: Plavix) metoprolol 25 mg 25 mg=1 tab, PO, Active oral tablet, Daily, # 30 tab, 2015 [place] extended release 0 Refill(s) Protonix 40 mg, 1 tab, Inactive Route: PO, Drug 2015 [place] form: ECTAB, Before Dinner, Dosing Weight 131.7, kg, Start date: 05/06/16 16:30:00 [employer], Duration: 30 day, Stop date: 06/04/16 16:30:00 CSTNotes: Tablet should not be chewed or crushed. (Same as: Protonix) Lisinopril 2.5 mg, 0.5 tab, Inactive Route: PO, Drug 2015 [place] form: TAB, Daily, Dosing Weight 131.7, kg, Start date: 05/06/16 9:00:00 [employer], Duration: 30 day, Stop date: 06/04/16 9:00:00 CSTNotes: (Same as: Prinivil, Zestril) Aspirin 325 MG 325 mg, 1 tab, Inactive Oral Tablet Route: PO, Drug 2015 [place] form: TAB, Daily, Dosing Weight 127.273, kg, Start date: 05/06/16 9:00:00 [employer], Duration: 30 day, Stop date: 06/04/16 9:00:00 CSTNotes: Take with food. atorvastatin 40 40 mg=1 tab, PO, Active mg oral tablet Bedtime, # 90 2015 [place] tab, 1 Refill(s) Alprazolam 1 MG 1 mg, 2 tab, No Longer Oral Tablet Route: PO, Drug Active 2015 [place] [Xanax] form: TAB, Q8H, Dosing Weight 131.7, kg, PRN Anxiety, Start date: 05/05/16 22:49:00 [employer], Duration: 30 day, Stop date: 06/04/16 22:48:00 CSTNotes: With food or milk (Same as: Xanax) Lipitor 80 mg, 2 tab, No Longer Route: PO, Drug Active 2015 [place] form: TAB, Bedtime, Dosing Weight 127.273, kg, Start date: 05/05/16 21:00:00 [employer], Duration: 30 day, Stop date: 06/03/16 21:00:00 CSTNotes: (Same as: Lipitor) Clindamycin 300 mg, 2 cap, No Longer Route: PO, Drug Active 2015 [place] form: CAP, ABXQ6H, Dosing Weight 127.273, kg, Start date: 05/05/16 21:00:00 [employer], Stop date: 06/04/16 15:00:00 CSTNotes: (Same As: Cleocin) Saline Flush 10 ml, Route: No Longer 0.9% IVP, Drug Form: Active 2015 [place] INJ, Dosing Weight 127.273, kg, Q12H, Start date: 05/05/16 21:00:00 [employer], Duration: 30 day, Stop date: 06/04/16 9:00:00 CSTNotes: preservative free. Insulin, Aspart, 1 unit, 0.01 mL, No Longer Human Route: SUB-Q, Active 2015 [place] Drug form: SOLN, Bedtime, Dosing Weight 127.273, kg, PRN Blood Glucose Results, Start date: 05/05/16 20:27:00 [employer], Duration: 30 day, Stop date: 06/04/16 20:26:00 CSTNotes: Roll in palms of hands gently; Do not shake vigorously. (Same as: NovoLOG) "single patient use only" WASTE: F/P - Black; E - Municipal Trash Bin Stable for 28 days at room temperature. Expires in days from Da te Glucagon 1 mg, Route: IM, No Longer Drug form: Active 2015 [place] PDR/INJ, PRN, Dosing Weight 127.273, kg, PRN Blood Glucose Results, Start date: 05/05/16 20:27:00 [employer], Duration: 30 day, Stop date: 06/04/16 20:26:00 [employer]ERSON Dextrose 50% 12.5 gm, 25 mL, No Longer Syringe Route: IVP, Drug Active 2015 [place] Form: INJ, Dosing Weight 127.273, kg, PRN, PRN Blood Glucose Results, Start date: 05/05/16 20:27:00 [employer], Duration: 30 day, Stop date: 06/04/16 20:26:00 [employer]ERSON Morphine 2 mg, 1 mL, No Longer Route: IVP, Drug Active 2015 [place] form: INJ, Q2H, Dosing Weight 127.273, kg, PRN as needed for chest pain, Priority: STAT, Start date: 05/05/16 20:00:00 [employer], Duration: 30 day, Stop date: 06/04/16 19:59:00 CSTNotes: (Same as:MORPhine Sulfate) Plavix 75 mg, 1 tab, Inactive Route: PO, Drug 2015 [place] form: TAB, ONCE, Dosing Weight 127.273, kg, Priority: STAT, Start date: 05/05/16 19:58:00 [employer], Stop date: 05/05/16 19:58:00 CSTNotes: (Same As: Plavix) Saline Flush 10 ml, Route: No Longer 0.9% IVP, Drug Form: Active 2015 [place] INJ, Dosing Weight 127.273, kg, PRN, PRN Line Flush, Start date: 05/05/16 19:55:00 [employer], Duration: 30 day, Stop date: 06/04/16 19:54:00 CSTNotes: (Same as: BD Posiflush) Albuterol 0.833 3 ml, Route: No Longer MG/ML / NEB, Drug Form: Active 2015 [place] Ipratropium SOLN, Dosing [place] 0.167 Weight 127.273, MG/ML Inhalant kg, PRN, PRN Solution Respiratory Protocol, Start date: 05/05/16 19:55:00 [employer], Duration: 30 day, Stop date: 06/04/16 19:54:00 CSTNotes: (Same as: Duoneb) Nystatin 100 1 appl, Route: No Longer UNT/MG Topical TOP, PRN, Drug Active 2015 [place] Powder form: PWDR, PRN For Fungal Prophylaxis, Start date: 05/05/16 19:55:00 [employer] PERSON, Duration: 30 day, Stop date: 06/04/16 19:54:00 [...] Volume: 500 mL, Start date: 05/05/16 19:43:00 [employer]ERSON, Duration: 30 day, Stop date: 06/04/16 19:42:00 [employer]ERSON Heparin 60 Route: IVP, PRN, No Longer unit/kg Bolus 5,800 unit, 5.8 Active 2015 [place] (Heparin Dosing mL, Drug form: Weight) INJ, PRN, Heparin Protocol, Start date: 05/05/16 19:43:00 [employer]ERSON Stop date: 06/04/16 19:42:00 [employer]ERSON Heparin 30 Route: IVP, PRN, No Longer unit/kg Bolus 2,900 unit, 2.9 Active 2015 [place] (Heparin Dosing mL, Drug form: Weight) INJ, PRN, Heparin Protocol, Start date: 05/05/16 19:43:00 [employer] PERSON Stop date: 06/04/16 19:42:00 [employer] PERSON Heparin - one 4,000 unit, 4 Inactive time bolus for mL, Route: IVP, 2016 [place] [facility] Drug form: INJ, ONCE, Dosing Weight 127.273, kg, Priority: STAT, Start date: 05/05/16 19:43:00 [employer] PERSON, Stop date: 05/05/16 19:43:00 [employer] PERSON Morphine 4 mg, 1 mL, Inactive Route: IVP, Drug 2015 [place] form: INJ, ONCE, Dosing Weight 127.273, kg, Priority: STAT, Start date: 05/05/16 19:25:00 [employer] PERSON, Stop date: 05/05/16 19:25:00 CSTNotes: (Same as:MORPhine Sulfate) Nitroglycerin 1 inch, Route: Inactive 0.02 MG/MG TOP, Dosing 2015 [place] Topical Ointment Weight 127.273, kg, ONCE, STAT, Start date: 05/05/16 17:40:00 [employer] PERSON, Stop date: 05/05/16 17:40:00 [employer] PERSON Aspirin 81 MG 243 mg, Route: Inactive Chewable Tablet PO, Drug form: 2015 [place] CHEWTAB, ONCE, Dosing Weight 127.273, kg, Priority: STAT, Start date: 05/05/16 17:17:00 [employer] PERSON, Stop date: 05/05/16 17:17:00 [employer] PERSON Morphine 4 mg, Route: Inactive IVP, ONCE, 2015 [place] Dosing Weight 127.273, kg, Priority: STAT, Start date: 05/05/16 17:15:00 [employer] PERSON, Stop date: 05/05/16 17:15:00 [employer] PERSON Saline Flush 10 mL, Route: No Longer 0.9% IVP, Drug Form: Active 2015 [place] INJ, Dosing Weight 128.182, kg, PRN, PRN Line Flush, Start date: 05/05/16 16:55:00 [employer] PERSON, Duration: 30 day, Stop date: 06/04/16 16:54:00 CSTNotes: preservative free. Acetaminophen 1 - 2 tab, PO, No Longer 300 MG / Codeine Q4H, PRN Pain, X Active 2015 [place] Phosphate 30 MG 2 day, # 20 tab, Oral Tablet 0 Refill(s) [Tylenol with Codeine #3] Morphine 4 mg, 1 mL, Inactive Route: IVP, Drug 2015 [place] form: INJ, ONCE, Dosing Weight 128.182, kg, Priority: STAT, Start date: 04/25/16 19:51:00 CDT, Stop date: 04/25/16 19:51:00 CDTNotes: (Same as:MORPhine Sulfate) Zofran 4 mg, 2 mL, Inactive Route: IVP, Drug 2015 [place] form: INJ, ONCE, Dosing Weight 128.182, kg, Priority: STAT, Start date: 04/25/16 18:23:00 CDT, Stop date: 04/25/16 18:23:00 CDTNotes: (Same as: Zofran) MEDICATION WASTE Product Size: 4 mg Product Wasted: ___ mg Morphine 4 mg, 1 mL, Inactive Route: IVP, Drug 2015 [place] form: INJ, ONCE, Dosing Weight 128.182, kg, Priority: STAT, Start date: 04/25/16 18:23:00 CDT, Stop date: 04/25/16 18:23:00 CDTNotes: (Same as:MORPhine Sulfate) Saline Flush 10 mL, Route: Inactive 0.9% IVP, Drug Form: 2015 [place] INJ, Dosing Weight 129.091, kg, PRN, PRN Line Flush, Start date: 04/25/16 18:07:00 CDT, Duration: 30 day, Stop date: 05/25/16 17:06:00 CSTNotes: (Same as: BD Posiflush) Acetaminophen 1 tab, PO, Q6H, Active 300 MG / Codeine PRN Pain, X 5 2015 [place] Phosphate 30 MG day, # 20 tab, 0 Oral Tablet Refill(s) Morphine 4 mg, Route: Inactive IVP, ONCE, 2015 [place] Dosing Weight 129.091, kg, Priority: STAT, Start date: 03/05/16 8:44:00 CDT, Stop date: 03/05/16 8:44:00 CDT Ondansetron 4 mg, Route: Inactive IVP, Drug form: 2015 [place] INJ, ONCE, Dosing Weight 129.091, kg, Priority: STAT, Start date: 03/05/16 7:35:00 CDT, Stop date: 03/05/16 7:35:00 CDT Aspirin 324 mg, Route: Inactive PO, ONCE, Dosing 2015 [place] Weight 129.091, kg, Priority: STAT, Start date: 03/05/16 7:22:00 CDT, Stop date: 03/05/16 7:22:00 CDT Morphine 2 mg, Route: Inactive IVP, ONCE, 2015 [place] Dosing Weight 129.091, kg, Priority: STAT, Start date: 03/05/16 7:22:00 CDT, Stop date: 03/05/16 7:22:00 CDT Saline Flush 10 mL, Route: Inactive 0.9% IVP, Drug Form: 2015 [place] INJ, Dosing Weight 129.091, kg, PRN, PRN Line Flush, Start date: 03/05/16 7:22:00 CDT, Duration: 30 day, Stop date: 04/04/16 7:21:00 CDTNotes: (Same as: BD Posiflush) Dilaudid 0.5 mg, 0.5 mL, Inactive Route: IVP, Drug 2015 [place] form: INJ, ONCE, Dosing Weight 128.636, kg, Priority: STAT, Start date: 03/02/16 7:40:00 CDT, Stop date: 03/02/16 7:40:00 CDTNotes: Same as: Dilaudid Ketorolac 30 mg, 1 mL, Inactive Route: IVP, Drug 2015 [place] form: INJ, ONCE, Dosing Weight 128.636, kg, Priority: STAT, Start date: 03/02/16 5:25:00 CDT, Stop date: 03/02/16 5:25:00 CDTNotes: (Same as:Toradol) IV bolus must be given >15 seconds. Give IM administration slowly and deeply into the muscle. Not for use > 4 days MEDICATION WASTE Product Size: 30 mg Product Wasted: ___ mg Morphine 4 mg, 1 mL, Inactive Route: IVP, Drug 2015 [place] form: INJ, ONCE, Dosing Weight 128.636, kg, Priority: STAT, Start date: 03/02/16 5:25:00 CDT, Stop date: 03/02/16 5:25:00 CDTNotes: (Same as:MORPhine Sulfate) Ondansetron 4 mg, 2 mL, Inactive Route: IVP, Drug 2015 [place] form: INJ, ONCE, Dosing Weight 128.636, kg, Priority: STAT, Start date: 03/02/16 5:25:00 CDT, Stop date: 03/02/16 5:25:00 CDTNotes: (Same as: Zofran) MEDICATION WASTE Product Size: 4 mg Product Wasted: ___ mg Saline Flush 10 mL, Route: Inactive 0.9% IVP, Drug Form: 2015 [place] INJ, Dosing Weight 128.636, kg, PRN, PRN Line Flush, Start date: 03/02/16 5:25:00 CDT, Duration: 30 day, Stop date: 04/01/16 5:24:00 CDTNotes: (Same as: BD Posiflush) Sodium Chloride 1,000 mL, 2,000 Inactive 0.154 MEQ/ML ml/hr, Infuse 2015 [place] Injectable Over: 30 Solution minutes, Route: IV, 1,000, Drug form: INJ, ONCE, Priority: STAT, Dosing Weight 128.636 kg, Start date: 03/02/16 5:25:00 CDT, Duration: 1 doses or times, Stop date: 03/02/16 5:25:00 CDT Acetaminophen 1 tab, PO, Q6H, Active 300 MG / Codeine PRN Pain, # 28 2015 [place] Phosphate 30 MG tab, 0 Refill(s) Oral Tablet [Tylenol with Codeine #3] Protonix 40 mg, 1 tab, No Longer Route: PO, Drug Active 2015 [place] form: ECTAB, Before Breakfast, Dosing Weight 129.545, kg, Start date: 02/18/16 7:30:00 CDT, Duration: 30 day, Stop date: 03/18/16 7:30:00 CDTNotes: Tablet should not be chewed or crushed. (Same as: Protonix) Lipitor 80 mg, 2 tab, No Longer Route: PO, Drug Active 2015 [place] form: TAB, Bedtime, Dosing Weight 129.545, kg, Start date: 02/17/16 21:00:00 CDT, Duration: 30 day, Stop date: 03/17/16 21:00:00 CDTNotes: (Same as: Lipitor) Morphine 2 mg, 1 mL, No Longer Route: IVP, Drug Active 2015 [place] form: INJ, Q4H, Dosing Weight 129.545, kg, PRN Pain Score 7-10, Start date: 02/17/16 11:54:00 CDT, Duration: 30 day, Stop date: 03/18/16 11:53:00 CDTNotes: (Same as:MORPhine Sulfate) Lovenox 40 mg, 0.4 mL, No Longer Route: SUB-Q, Active 2015 [place] Drug form: INJ, [id number], Dosing Weight 129.545, kg, Start date: 02/17/16 10:00:00 CDT, Duration: 30 day, Stop date: 03/17/16 10:00:00 CDTNotes: (Same as: Lovenox) Lisinopril 2.5 mg, 0.5 tab, No Longer Route: PO, Drug Active 2015 [place] form: TAB, Daily, Dosing Weight 129.545, kg, Start date: 02/17/16 9:55:00 CDT, Duration: 30 day, Stop date: 03/18/16 9:00:00 CDTNotes: (Same as: Prinivil, Zestril) Imdur 30 mg, 1 tab, No Longer Route: PO, Drug Active 2015 [place] form: ERTAB, QAM, Dosing Weight 129.545, kg, Start date: 02/17/16 9:54:00 CDT, Duration: 30 day, Stop date: 03/18/16 9:00:00 CDTNotes: (Same as:Imdur) "Do Not Crush" Take on empty stomach/ full glass of water. Do not crush Plavix 75 mg, 1 tab, No Longer Route: PO, Drug Active 2015 [place] form: TAB, Daily, Dosing Weight 129.545, kg, Start date: 02/17/16 9:54:00 CDT, Duration: 30 day, Stop date: 03/18/16 9:00:00 CDTNotes: (Same As: Plavix) Aspirin 81 MG 81 mg, 1 tab, No Longer Enteric Coated Route: PO, Drug Active 2015 [place] Tablet form: ECTAB, Daily, Dosing Weight 129.545, kg, Start date: 02/17/16 9:54:00 CDT, Duration: 30 day, Stop date: 03/18/16 9:00:00 CDTNotes: Do not crush or chew. (Same As: Ecotrin) Zofran ODT 4 mg, 1 tab, No Longer Route: PO, Drug Active 2015 [place] form: TABDIS, Q12H, Dosing Weight 129.545, kg, PRN Nausea, Start date: 02/17/16 9:25:00 CDT, Duration: 30 day, Stop date: 03/18/16 9:24:00 CDTNotes: (Same as: Zofran ODT) Nitroglycerin 0.4 mg, 1 tab, No Longer 0.4 MG Route: SL, Drug Active 2015 [place] Sublingual form: TAB, Tablet Q5Min, Dosing [Nitrostat] Weight 129.545, kg, PRN Chest Pain, Start date: 02/17/16 9:25:00 CDT, Duration: 30 day, Stop date: 03/18/16 9:24:00 CDTNotes: (Same as:Nitroquick, Nitrostat) "Do Not Crush" Sublingual tablet Alprazolam 1 MG 1 mg, 1 tab, No Longer Oral Tablet Route: PO, Drug Active 2015 [place] [Xanax] form: TAB, Q8H, Dosing Weight 129.545, kg, PRN Anxiety, Start date: 02/17/16 9:23:00 CDT, Duration: 30 day, Stop date: 03/18/16 9:22:00 CDTNotes: With food or milk (Same as: Xanax) pneumococcal 0.5 mL, Route: Inactive capsular IM, Drug Form: 2016 [place] polysaccharide INJ, Daily, type 1 vaccine / [...] No Longer Disintegrating Q12H, PRN Active 2015 [place] Tablet [Zofran] Nausea, 0 Refill(s) Aspirin 81 MG 81 mg=1 tab, PO, Active Enteric Coated Daily, # 90 tab, 2015 [place] Tablet 3 Refill(s) Nitroglycerin 0.4 mg=1 tab, No Longer 0.4 MG SL, Q5Min, PRN Active 2015 [place] Sublingual Chest Pain, # Tablet 100 tab, 0 [Nitrostat] Refill(s) pantoprazole 40 40 mg=1 tab, PO, Active MG Enteric Daily, # 30 tab, 2016 [place] Coated Tablet 0 Refill(s) [Protonix] 24 HR Isosorbide 30 mg=1 tab, PO, Active Mononitrate 30 QAM, # 30 tab, 0 2015 [place] MG Extended Refill(s) Release Tablet [Imdur] Hydroxyzine 25 mg=1 tab, PO, No Longer Hydrochloride 25 Bedtime, PRN Active 2016 [place] MG Oral Tablet Sleep, # 30 tab, 0 Refill(s) Furosemide 20 MG 20 mg=1 tab, PO, Active Oral Tablet Daily, # 30 tab, 2016 [place] 0 Refill(s) Potassium 20 mEq=1 tab, Active Chloride 20 MEQ PO, Daily, # 90 2016 [place] Extended Release tab, 1 Refill(s) Tablet [Klor-Con] Alprazolam 1 MG 1 mg=1 tab, PO, Active Oral Tablet Q8H, PRN 2016 [place] [Xanax] Anxiety, 0 Refill(s) Metformin 1 tab, PO, BID, Active hydrochloride # 60 tab, 0 2015 [place] 500 MG / Refill(s) repaglinide 1 MG Oral Tablet Acetaminophen 1 tab, PO, Q6H, No Longer 300 MG / Codeine PRN Pain, # 28 Active 2016 [place] Phosphate 30 MG tab, 0 Refill(s) Oral Tablet [Tylenol with Codeine #3] lisinopril 2.5 2.5 mg=1 tab, Active mg oral tablet PO, Daily, # 30 2016 [place] tab, 0 Refill(s) clopidogrel 75 75 mg=1 tab, PO, Active MG Oral Tablet Daily, # 30 tab, 2016 [place] [Plavix] 0 Refill(s) atorvastatin 80 80 mg=1 tab, PO, Active MG Oral Tablet Bedtime, # 30 2016 [place] [Lipitor] tab, 0 Refill(s) Ceftriaxone 1 gm, Route: Inactive IVPB, Drug form: 2015 [place] PDR/INJ, ONCE, Dosing Weight 129.545, kg, Priority: STAT, Start date: 02/17/16 7:01:00 CDT, Stop date: 02/17/16 7:01:00 CDT Dilaudid 0.5 mg, Route: Inactive IVP, ONCE, 2015 [place] Dosing Weight 129.545, kg, Priority: STAT, Start date: 02/17/16 6:28:00 CDT, Stop date: 02/17/16 6:28:00 CDT Zofran 4 mg, Route: Inactive IVP, Drug form: 2015 [place] INJ, ONCE, Dosing Weight 129.545, kg, Priority: STAT, Start date: 02/17/16 5:32:00 CDT, Stop date: 02/17/16 5:32:00 CDT Dilaudid 0.5 mg, Route: Inactive IVP, ONCE, 2015 [place] Dosing Weight 129.545, kg, Priority: STAT, Start date: 02/17/16 5:32:00 CDT, Stop date: 02/17/16 5:32:00 CDT Saline Flush 10 mL, Route: Inactive 0.9% IVP, Drug Form: 2015 [place] INJ, kg, PRN, PRN Line Flush, Start date: 02/17/16 5:19:00 CDT, Duration: 30 day, Stop date: 03/18/16 5:18:00 CDTNotes: (Same as: BD Posiflush) Allergies, Adverse Reactions, Alerts Substance Category Reaction Severity Reaction Status Date Comments Source type Reported beta Assertion Drug Active blockers allergy [place] Flomax Assertion Drug Active allergy [place] Stadol Assertion Drug Active MH allergy [place] traMADol Assertion Drug Active MH allergy [place] Immunizations Immunization Date Given Site Status Last Updated Comments Source pneumococcal 02/17/2016 Not Given [facility] 23-valent vaccine Results Order Name Results Value Reference Date Interpretation Comments Source Range URINE AND UA Mucus Few /LPF None Seen 05/17 STOOL /LPF [place] URINE AND UA Leuk Est Negative Negative 05/17 STOOL [place] (05/17/16 5:16 PM) URINE AND UA Bili Negative Negative 05/17 STOOL [place] *NA* (05/17/16 5:16 PM) URINE AND UA Ketones Negative Negative 05/17 STOOL mg/dL mg/dL [place] URINE AND UA Nitrite Negative Negative 05/17 STOOL [place] (05/17/16 5:16 PM) URINE AND UA 0.2 EU/dL 0.1 - 1.0 05/17 STOOL Urobilinogen [place] URINE AND UA Turbidity Clear Clear 05/17 STOOL [place] (05/17/16 5:16 PM) URINE AND UA Blood Negative Negative 05/17 STOOL [place] (05/17/16 5:16 PM) URINE AND UA Glucose Negative Negative 05/17 STOOL mg/dL mg/dL [place] URINE AND UA Protein Negative Negative 05/17 STOOL mg/dL mg/dL [place] URINE AND UA pH 6.5 5.0 - 8.0 05/17 STOOL [place] URINE AND UA Spec Grav 1.020 <=1.030 05/17 STOOL [place] URINE AND UA Color Yellow Yellow 05/17 STOOL [place] *NA* (05/17/16 5:16 PM) URINE AND UA Sq Epi Rare /LPF Few /LPF 05/17 STOOL [place] URINE AND UA Bacteria Occasional None Seen 05/17 STOOL /HPF /HPF [place] URINE AND UA RBC 0-2 /HPF 0 - 2 05/17 STOOL [place] URINE AND UA WBC 0-2 /HPF None Seen 05/17 STOOL /HPF /2015 [place] CARDIAC Total CK 74 unit/L 12 - 191 05/17 ENZYMES [place] CARDIAC CK MB 0.8 ng/mL 0.5 - 3.6 05/17 ENZYMES [place] CARDIAC Troponin-I null 0.00 - 05/17 ENZYMES 0.40 [place] CARDIAC CK-MB INDEX 1.1 0.0 - 2.5 05/17 [place] CHEM PANEL eGFR 79 05/17 Result Comment: [...] is not recommended in the following populations: [place] 3m2 Individuals with unstable creatinine concentrations, including [...] Lvl 106 meq/L 95 - 109 05/17 [place] CHEM PANEL CO2 28 meq/L 24 - 32 05/17 [place] CHEM PANEL Calcium Lvl 8.8 mg/dL 8.5 - 10.5 05/17 [place] CHEM PANEL Bili Total 0.4 mg/dL 0.2 - 1.3 05/17 [place] CHEM PANEL AGAP 9.7 meq/L 10.0 - 05/17 20.0 [place] CHEM PANEL B/C Ratio 14 6 - 25 05/17 [place] CHEM PANEL ASPARTATE 14 unit/L 0 - 37 05/17 MH [place] CHEM PANEL Total 7.7 g/dL 6.4 - 8.4 05/17 [place] CHEM PANEL Globulin 4.4 g/dL 2.7 - 4.2 05/17 [place] CHEM PANEL A/G Ratio 0.8 0.7 - 1.6 11 [place] CHEM PANEL Glucose Lvl 148 mg/dL 70 - 99 05/17 [place] CHEM PANEL BUN 15 mg/dL 7 - 22 05/17 [place] CHEM PANEL Creatinine 1.11 mg/dL 0.50 - 05/17 MH Lvl 1.40 [place] CHEM PANEL Sodium Lvl 140 meq/L 135 - 145 05/17 [place] CHEM PANEL Potassium 3.7 meq/L 3.5 - 5.1 05/17 MH Lvl [place] CHEM PANEL Albumin Lvl 3.3 g/dL 3.5 - 5.0 05/17 [place] CHEM PANEL Alk Phos 129 unit/L 39 - 136 05/17 [place] CHEM PANEL ALANINE 30 unit/L 0 - 65 05/17 AMINOTRANS [place] RAS HEMATOLOGY MPV 7.3 fL 7.4 - 10.4 05/17 [place] HEMATOLOGY Platelet 281 K/CMM 133 - 450 05/17 [place] HEMATOLOGY RBC X 10x6 5.30 M/CMM 4.70 - 05/17 MH 6.10 [place] HEMATOLOGY WBC X 10x3 10.5 K/CMM 3.7 - 10.4 05/17 [place] HEMATOLOGY Hgb 12.4 g/dL 14.0 - 05/17 MH 18.0 [place] HEMATOLOGY Hct 36.8 % 42.0 - 05/17 MH 54.0 [place] HEMATOLOGY MCV 69.4 fL 80.0 - 05/17 MH 94.0 [place] HEMATOLOGY MCH 23.4 pg 27.0 - 05/17 MH 31.0 [place] HEMATOLOGY MCHC 33.7 g/dL 32.0 - 05/17 MH 36.0 /2015 [place] HEMATOLOGY RDW 17.1 % 11.5 - 05/17 MH 14.5 /2015 [place] HEMATOLOGY aPTT 35.4 s 22.9 - 05/17 35.8 /2015 [place] HEMATOLOGY PROTIME 13.1 s 12.0 - 05/17 MH 14.7 /2015 [place] HEMATOLOGY INR 0.97 0.85 - 05/17 MH 1.17 /2015 [place] HEMATOLOGY Eosinophils 1.1 % 0.0 - 4.0 05/17 [place] HEMATOLOGY Monocytes 6.7 % 2.0 - 12.0 05/17 [place] HEMATOLOGY Segs-Bands # 7.2 K/CMM 1.5 - 8.1 05/17 [place] HEMATOLOGY Basophils 1.1 % 0.0 - 1.0 05/17 [place] HEMATOLOGY Lymphocytes 2.4 K/CMM 1.0 - 5.5 05/17 # /2015 [place] HEMATOLOGY Monocytes # 0.7 K/CMM 0.0 - 0.8 05/17 [place] HEMATOLOGY Eosinophils 0.1 K/CMM 0.0 - 0.5 05/17 # /2015 [place] HEMATOLOGY Microcyte 2+ None Seen 05/17 [place] *ABN* (05/17/16 4:01 PM) HEMATOLOGY Basophils # 0.1 K/CMM 0.0 - 0.2 05/17 [place] HEMATOLOGY Lymphocytes 22.3 % 20.0 - 05/17 40.0 [place] HEMATOLOGY Segs 68.8 % 45.0 - 05/17 75.0 [place] Chest 1view Chest 1view Portable chest: The cardiomediastinal silhouette and pulmonary vasculature are within normal limits. The lungs and pleural spaces are clear. There are no acute osseous abnormalities. There is no significant change compared to 05/05/2016. 05/17 - [facility] DX DX /2015 - [place] IMPRESSION: Read by: Rizwan Barnhart MD Dictated Date/time: 05/17/16 16:37 Electronically Signed by: Rizwan Barnhart MD 05/17/16 16:38 FINAL REPORT No acute radiographic abnormality in the chest. [id number] CARDIAC Troponin-I null 0.00 - 05/06 ENZYMES 0.40 [place] [facility]EMATOLOG[facility] aPTT 50.1 s 22.9 - 05/06 MH 35.8 2016 [place] ELECTROLYTE AGAP 10.8 meq/L 10.0 - 05/06 S 20.0 [place] ELECTROLYTE CO2 28 meq/L 24 - 32 05/06 S [place] ELECTROLYTE Chloride Lvl 105 meq/L 95 - 109 05/06 [facility] [place] ELECTROLYTE Calcium Lvl 8.7 mg/dL 8.5 - 10.5 05/06 S [place] ELECTROLYTE eGFR 103 05/06 Result Comment: The [...] is not recommended in the following populations: [address] Individuals with unstable creatinine concentrations, including [...] 123 mg/dL 70 - 99 05/06 S [place] ELECTROLYTE Creatinine 0.86 mg/dL 0.50 - 05/06 S Lvl 1.40 [place] ELECTROLYTE BUN 18 mg/dL 7 - 22 05/06 S [place] ELECTROLYTE Potassium 3.8 meq/L 3.5 - 5.1 05/06 S Lvl [place] ELECTROLYTE Sodium Lvl 140 meq/L 135 - 145 05/06 [facility] [place] HEMATOLOGY Microcyte 2+ None Seen 05/06 [place] *ABN* (05/06/16 2:42 AM) HEMATOLOGY Eosinophils 0.2 K/CMM 0.0 - 0.5 05/06 # /2015 [place] HEMATOLOGY Monocytes # 0.8 K/CMM 0.0 - 0.8 05/06 [place] HEMATOLOGY Monocytes 7.9 % 2.0 - 12.0 05/06 [place] HEMATOLOGY Lymphocytes 2.5 K/CMM 1.0 - 5.5 05/06 MH # /2016 [place] HEMATOLOGY Segs-Bands # 6.5 K/CMM 1.5 - 8.1 05/06 [place] HEMATOLOGY Basophils 0.4 % 0.0 - 1.0 05/06 MH [place] HEMATOLOGY Eosinophils 1.7 % 0.0 - 4.0 05/06 /2015 [place] HEMATOLOGY Lymphocytes 24.8 % 20.0 - 05/06 MH 40.0 [place] HEMATOLOGY Segs 65.2 % 45.0 - 05/06 MH 75.0 [place] HEMATOLOGY RBC X 10x6 5.11 M/CMM 4.70 - 05/06 MH 6.10 [place] HEMATOLOGY Hct 36.2 % 42.0 - 05/06 MH 54.0 [place] HEMATOLOGY Hgb 11.8 g/dL 14.0 - 05/06 MH 18.0 [place] HEMATOLOGY Platelet 272 K/CMM 133 - 450 05/06 [place] HEMATOLOGY RDW 17.1 % 11.5 - 05/06 14. [place] HEMATOLOGY MPV 7.8 fL 7.4 - 10.4 05/06 /2015 [place] HEMATOLOGY WBC X 10x3 9.9 K/CMM 3.7 - 10.4 05/06 [place] HEMATOLOGY MCHC 32.5 g/dL 32.0 - 05/06 MH 36.0 [place] HEMATOLOGY MCH 23.0 pg 27.0 - 05/06 31.0 [place] HEMATOLOGY MCV 70.8 fL 80.0 - 05/06 94.0 [place] HEMATOLOGY PROTIME 13.4 s 12.0 - 05/06 14. [place] HEMATOLOGY INR 1.00 0.85 - 05/06 MH 1.17 [place] HEMATOLOGY aPTT 49.1 s 22.9 - 05/06 35.8 [place] URINE AND UA Bacteria None Seen None Seen 05/06 STOOL [place] (05/05/16 10:09 PM) URINE AND UA Blood Negative Negative 05/06 STOOL [place] (05/05/16 10:09 PM) URINE AND UA RBC 0-2 /HPF 0 - 2 05/06 [place] URINE AND UA WBC None Seen None Seen 05/06 STOOL [place] (05/05/16 10:09 PM) URINE AND UA Sq Epi None Seen Few 05/06 STOOL [place] (05/05/16 10:09 PM) URINE AND UA Leuk Est Negative Negative 05/06 STOOL [place] (05/05/16 10:09 PM) URINE AND UA 0.2 EU/dL 0.1 - 1.0 05/06 ST[facility] Urobilinogen [place] URINE AND UA Nitrite Negative Negative 05/06 STOOL [place] (05/05/16 10:09 PM) URINE AND UA Color Yellow Yellow 05/06 [place] *NA* (05/05/16 10:09 PM) URINE AND UA Glucose Negative Negative 05/06 STOOL [place] (05/05/16 10:09 PM) URINE AND UA Bili Negative Negative 05/06 [place] *NA* (05/05/16 10:09 PM) URINE AND UA Ketones Negative Negative 05/06 [place] *NA* (05/05/16 10:09 PM) URINE AND UA Protein Negative Negative 05/06 STOOL [place] (05/05/16 10:09 PM) URINE AND UA pH 6.0 5.0 - 8.0 05/06 [place] URINE AND UA Turbidity Clear Clear 05/06 [place] (05/05/16 10:09 PM) URINE AND UA Spec Grav >=1.030 <=1.030 05/06 [place] *ABN* (05/05/16 10:09 PM) BACTERIAL - MRSA by PCR Negative 05/06 SEROLOGY [place] (05/05/16 10:06 PM) HEMATOLOGY Basophils # 0.1 K/CMM 0.0 - 0.2 05/06 [place] HEMATOLOGY Microcyte 2+ None Seen 05/06 [place] *ABN* (05/05/16 9:38 PM) HEMATOLOGY Eosinophils 1.4 % 0.0 - 4.0 05/06 [place] HEMATOLOGY Basophils 0.7 % 0.0 - 1.0 05/06 [place] HEMATOLOGY Segs-Bands # 7.1 K/CMM 1.5 - 8.1 05/06 /2015 [place] HEMATOLOGY Lymphocytes 24.8 % 20.0 - 05/06 MH 40.0 /2015 [place] HEMATOLOGY Monocytes 7.9 % 2.0 - 12.0 05/06 /2015 [place] HEMATOLOGY Monocytes # 0.9 K/CMM 0.0 - 0.8 05/06 /2015 [place] HEMATOLOGY Eosinophils 0.2 K/CMM 0.0 - 0.5 05/06 MH # /2015 [place] HEMATOLOGY Lymphocytes 2.7 K/CMM 1.0 - 5.5 05/06 MH # /2015 [place] HEMATOLOGY Segs 65.2 % 45.0 - 05/06 MH 75.0 /2015 [place] HEMATOLOGY MCV 69.7 fL 80.0 - 05/06 MH 94.0 [place] HEMATOLOGY MCH 23.3 pg 27.0 - 05/06 MH 31.0 [place] HEMATOLOGY Hgb 12.2 g/dL 14.0 - 05/06 MH 18.0 [place] HEMATOLOGY Hct 36.5 % 42.0 - 05/06 MH 54.0 [place] HEMATOLOGY MCHC 33.4 g/dL 32.0 - 05/06 MH 36.0 [place] HEMATOLOGY Platelet 276 K/CMM 133 - 450 05/06 /2015 [place] HEMATOLOGY MPV 7.2 fL 7.4 - 10.4 05/06 /2015 [place] HEMATOLOGY RDW 17.5 % 11.5 - 05/06 MH 14. [place] HEMATOLOGY WBC X 10x3 11.0 K/CMM 3.7 - 10.4 05/06 [place] HEMATOLOGY RBC X 10x6 5.24 M/CMM 4.70 - 05/06 MH 6.10 [place] HEMATOLOGY INR 1.05 0.85 - 05/06 MH 1.17 [place] HEMATOLOGY PROTIME 13.9 s 12.0 - 05/06 14. [place] HEMATOLOGY aPTT 35.3 s 22.9 - 05/06 MH 35.8 [place] CARDIAC CK-MB INDEX 1.0 0.0 - 2.5 05/05 ENZYMES /2015 [place] CARDIAC CK MB 0.8 ng/mL 0.5 - 3.6 05/05 ENZYMES /2015 [place] CARDIAC Total CK 80 unit/L 12 - 191 05/05 ENZYMES [place] CARDIAC Troponin-I null 0.00 - 05/05 ENZYMES 0.40 [place] CHEM PANEL Alk Phos 133 unit/L 39 - 136 05/05 [place] CHEM PANEL Glucose Lvl 137 mg/dL 70 - 99 05/05 [place] CHEM PANEL BUN 17 mg/dL 7 - 22 05/05 [place] CHEM PANEL Creatinine 1.01 mg/dL 0.50 - 05/05 MH Lvl 1.40 [place] CHEM PANEL Sodium Lvl 139 meq/L 135 - 145 05/05 [place] CHEM PANEL ALANINE 34 unit/L 0 - 65 05/05 AMINOTRANSFE [place] RASE CHEM PANEL Albumin Lvl 3.3 g/dL 3.5 - 5.0 05/05 [place] CHEM PANEL Chloride Lvl 105 meq/L 95 - 109 05/05 [place] CHEM PANEL eGFR 88 05/05 Result Comment: [...] is not recommended in the following populations: [address] Individuals with unstable creatinine concentrations, including [...] Total 0.4 mg/dL 0.2 - 1.3 05/05 [place] CHEM PANEL Calcium Lvl 8.6 mg/dL 8.5 - 10.5 05/05 [place] CHEM PANEL Potassium 3.7 meq/L 3.5 - 5.1 05/05 Lvl [place] CHEM PANEL CO2 28 meq/L 24 - 32 05/05 [place] CHEM PANEL Total 7.8 g/dL 6.4 - 8.4 05/05 [place] CHEM PANEL ASPARTATE 16 unit/L 0 - 37 05/05 [place] CHEM PANEL AGAP 9.7 meq/L 10.0 - 05/05 MH 20.0 [place] CHEM PANEL B/C Ratio 17 6 - 25 05/05 [place] CHEM PANEL Globulin 4.5 g/dL 2.7 - 4.2 05/05 [place] CHEM PANEL A/G Ratio 0.7 0.7 - 1.6 05/05 [place] HEMATOLOGY Monocytes # 0.8 K/CMM 0.0 - 0.8 05/05 [place] HEMATOLOGY Eosinophils 0.1 K/CMM 0.0 - 0.5 05/05 # [place] HEMATOLOGY Basophils # 0.1 K/CMM 0.0 - 0.2 05/05 [place] HEMATOLOGY Microcyte 2+ None Seen 05/05 [place] *ABN* (05/05/16 5:11 PM) HEMATOLOGY Monocytes 7.5 % 2.0 - 12.0 05/05 [place] HEMATOLOGY Eosinophils 1.1 % 0.0 - 4.0 05/05 [place] HEMATOLOGY Basophils 0.7 % 0.0 - 1.0 05/05 [place] HEMATOLOGY Segs-Bands # 7.5 K/CMM 1.5 - 8.1 05/05 [place] HEMATOLOGY Lymphocytes 2.1 K/CMM 1.0 - 5.5 05/05 [place] HEMATOLOGY Lymphocytes 19.9 % 20.0 - 05/05 MH 40.0 [place] HEMATOLOGY Segs 70.8 % 45.0 - 05/05 MH 75.0 [place] HEMATOLOGY Platelet 306 K/CMM 133 - 450 05/05 [place] HEMATOLOGY MCHC 33.6 g/dL 32.0 - 05/05 MH 36.0 [place] HEMATOLOGY MPV 7.3 fL 7.4 - 10.4 05/05 [place] HEMATOLOGY RDW 16.9 % 11.5 - 05/05 MH 14. [place] HEMATOLOGY MCV 69.5 fL 80.0 - 05/05 MH 94.0 [place] HEMATOLOGY MCH 23.4 pg 27.0 - 05/05 MH 31.0 [place] HEMATOLOGY Hct 37.4 % 42.0 - 05/05 MH 54.0 [place] HEMATOLOGY Hgb 12.6 g/dL 14.0 - 05/05 MH 18.0 [place] HEMATOLOGY WBC X 10x3 10.6 K/CMM 3.7 - 10.4 05/05 [place] HEMATOLOGY RBC X 10x6 5.39 M/CMM 4.70 - 05/05 MH 6.10 [place] Chest 1view Chest 1view EXAM: Chest 1view DX 05/05 - [facility] DX DX /2015 - [place] DATE: 05/05/2016 4:55 PM [employer] INDICATION: Chest pain Read by: Tito Farnsworth MD Dictated Date/time: 05/05/16 17:34 COMPARISON: 03/05/2016. Electronically Signed by: Tito Farnsworth MD 05/05/16 17:34 FINAL REPORT IMPRESSION: Stable mildly enlarged cardiac silhouette. Atherosclerotic thoracic aorta. No focal consolidation, significant pleural effusion or pneumothorax. SL: [id number] CHEM PANEL Globulin 4.2 g/dL 2.7 - 4.2 04/25 [place] CHEM PANEL B/C Ratio 19 6 - 25 04/25 [place] CHEM PANEL AGAP 9.9 meq/L 10.0 - 04/25 20.0 [place] CHEM PANEL A/G Ratio 0.8 0.7 - 1.6 04/25 [place] CHEM PANEL eGFR 100 04/25 Result Comment: [...] is not recommended in the following populations: [address] Individuals with unstable creatinine concentrations, including [...] Phos 128 unit/L 39 - 136 04/25 [place] CHEM PANEL Albumin Lvl 3.4 g/dL 3.5 - 5.0 04/25 [place] CHEM PANEL ALANINE 30 unit/L 0 - 65 04/25 AMINOTRANSFE [place] RASE CHEM PANEL Total 7.6 g/dL 6.4 - 8.4 04/25 Protein [place] CHEM PANEL Bili Total 0.3 mg/dL 0.2 - 1.3 04/25 [place] CHEM PANEL ASPARTATE 14 unit/L 0 - 37 04/25 TRANSAMINASE [place] CHEM PANEL CO2 26 meq/L 24 - 32 04/25 [place] CHEM PANEL Calcium Lvl 8.7 mg/dL 8.5 - 10.5 04/25 [place] CHEM PANEL Chloride Lvl 104 meq/L 95 - 109 04/25 [place] CHEM PANEL Potassium 3.9 meq/L 3.5 - 5.1 04/25 MH Lvl /2015 [place] CHEM PANEL Glucose Lvl 221 mg/dL 70 - 99 04/25 [place] CHEM PANEL Sodium Lvl 136 meq/L 135 - 145 04/25 [place] CHEM PANEL Creatinine 0.91 mg/dL 0.50 - 04/25 MH Lvl 1.40 [place] CHEM PANEL BUN 17 mg/dL 7 - 22 04/25 [place] HEMATOLOGY RBC X 10x6 5.40 M/CMM 4.70 - 04/25 MH 6.10 [place] HEMATOLOGY WBC X 10x3 10.3 K/CMM 3.7 - 10.4 04/25 [place] HEMATOLOGY Hgb 12.9 g/dL 14.0 - 04/25 MH 18.0 [place] HEMATOLOGY MPV 7.2 fL 7.4 - 10.4 04/25 [place] HEMATOLOGY RDW 16.8 % 11.5 - 04/25 MH 14. [place] HEMATOLOGY Platelet 313 K/CMM 133 - 450 04/25 [place] HEMATOLOGY MCH 23.8 pg 27.0 - 04/25 MH 31.0 [place] HEMATOLOGY MCHC 34.0 g/dL 32.0 - 04/25 36.0 /2015 [place] HEMATOLOGY Hct 37.9 % 42.0 - 04/25 MH 54.0 /2015 [place] HEMATOLOGY MCV 70.1 fL 80.0 - 04/25 94.0 /2015 [place] HEMATOLOGY Lymphocytes 2.3 K/CMM 1.0 - 5.5 04/25 MH # /2016 [place] HEMATOLOGY Eosinophils 0.1 K/CMM 0.0 - 0.5 04/25 # /2015 [place] HEMATOLOGY Monocytes # 0.6 K/CMM 0.0 - 0.8 04/25 [place] HEMATOLOGY Basophils # 0.1 K/CMM 0.0 - 0.2 04/25 [place] HEMATOLOGY Microcyte 2+ None Seen 04/25 [place] *ABN* (04/25/16 6:17 PM) HEMATOLOGY Segs 69.2 % 45.0 - 04/25 MH 75.0 /2015 [place] HEMATOLOGY Segs-Bands # 7.1 K/CMM 1.5 - 8.1 04/25 [place] HEMATOLOGY Monocytes 6.1 % 2.0 - 12.0 04/25 [place] HEMATOLOGY Basophils 1.1 % 0.0 - 1.0 04/25 [place] HEMATOLOGY Eosinophils 1.1 % 0.0 - 4.0 04/25 [place] HEMATOLOGY Lymphocytes 22.5 % 20.0 - 04/25 40.0 /2016 [place] URINE AND UA WBC 0-2 /HPF None Seen 04/25 STOOL /HPF [place] URINE AND UA RBC 0-2 /HPF 0 - 2 04/25 STOOL [place] URINE AND UA Bacteria Occasional None Seen 04/25 STOOL /HPF /HPF [place] URINE AND UA Leuk Est Negative Negative 04/25 STOOL [place] (04/25/16 6:17 PM) URINE AND UA Sq Epi Occasional Few /LPF 04/25 STOOL /LPF /2015 [place] URINE AND UA pH 6.0 5.0 - 8.0 04/25 [place] URINE AND UA Protein Negative Negative 04/25 STOOL [place] (04/25/16 6:17 PM) URINE AND UA Glucose 250 mg/dL Negative 04/25 STOOL mg/dL /2015 [place] URINE AND UA Ketones Negative Negative 04/25 STOOL [place] *NA* (04/25/16 6:17 PM) URINE AND UA Bili Negative Negative 04/25 [place] *NA* (04/25/16 6:17 PM) URINE AND UA Blood Negative Negative 04/25 [place] (04/25/16 6:17 PM) URINE AND UA 0.2 EU/dL 0.1 - 1.0 04/25 [facility] Urobilinogen [place] URINE AND UA Nitrite Negative Negative 04/25 STOOL [place] (04/25/16 6:17 PM) URINE AND UA Color Yellow Yellow 04/25 [place] *NA* (04/25/16 6:17 PM) URINE AND UA Turbidity Clear Clear 04/25 [place] (04/25/16 6:17 PM) URINE AND UA Spec Grav 1.020 <=1.030 04/25 [facility] [place] Renal Stone Renal Stone EXAM: CT ABDOMEN AND PELVIS WITHOUT CONTRAST [facility] CT [facility] DATE: 04/25/2016 6:07 PM CDT Read by: [...] provided. IV contrast: None. CT Radiation Dose: VQT=6450.51 mGy-cm FINDINGS: Evaluation of the solid organs [...] infrarenal abdominal aorta without aneurysmal dilatation. SL: [id number] CARDIAC Troponin-I null 0.00 - 03/05 MH ENZYMES 0.40 /2015 [place] CARDIAC CK MB 0.8 ng/mL 0.5 - 3.6 03/05 MH ENZYMES /2016 [place] CARDIAC Total CK 60 unit/L - 191 03/05 MH ENZYMES /2016 [place] CARDIAC CK-MB INDEX 1.3 0.0 - 2.5 03/05 MH ENZYMES /2016 [place] CARDIAC Troponin-I null 0.00 - 03/05 MH ENZYMES 0.40 2016 [place] CARDIAC Total CK 66 unit/L - 191 03/05 MH ENZYMES /2016 [place] CARDIAC CK MB 0.6 ng/mL 0.5 - 3.6 03/05 MH ENZYMES /2016 [place] CARDIAC CK-MB INDEX 0.9 0.0 - 2.5 03/05 MH ENZYMES /2016 [place] CHEM PANEL eGFR 103 03/05 Result Comment: [...] is not recommended in the following populations: [address] Individuals with unstable creatinine concentrations, including [...] 12.0 meq/L 10.0 - 09 MH 20.0 [place] CHEM PANEL Globulin 4.4 g/dL 2.7 - 4.2 03/05 [place] CHEM PANEL B/C Ratio 14 6 - 25 03/05 [place] CHEM PANEL A/G Ratio 0.8 0.7 - 1.6 03/05 [place] CHEM PANEL Calcium Lvl 8.8 mg/dL 8.5 - 10.5 03/05 [place] CHEM PANEL Bili Total 0.6 mg/dL 0.2 - 1.3 03/05 [place] CHEM PANEL Total 7.8 g/dL 6.4 - 8.4 03/05 Protein [place] CHEM PANEL ASPARTATE 16 unit/L 0 - 37 03/05 [place] CHEM PANEL Alk Phos 128 unit/L 39 - 136 03/05 [place] CHEM PANEL Glucose Lvl 97 mg/dL 70 - 99 03/05 [place] CHEM PANEL Creatinine 0.88 mg/dL 0.50 - 03/05 MH Lvl 1.40 [place] CHEM PANEL BUN 12 mg/dL 7 - 22 03/05 [place] CHEM PANEL Sodium Lvl 138 meq/L 135 - 145 03/05 [place] CHEM PANEL ALANINE 32 unit/L 0 - 65 03/05 AMINOTRANS [place] RASE CHEM PANEL Albumin Lvl 3.4 g/dL 3.5 - 5.0 03/05 [place] CHEM PANEL Potassium 4.0 meq/L 3.5 - 5.1 03/05 MH Lvl [place] CHEM PANEL Chloride Lvl 105 meq/L 95 - 109 03/05 [place] CHEM PANEL CO2 25 meq/L 24 - 32 03/05 [place] HEMATOLOGY Platelet 294 K/CMM 133 - 450 03/05 [place] HEMATOLOGY MPV 7.4 fL 7.4 - 10.4 03/05 [place] HEMATOLOGY WBC X 10x3 10.0 K/CMM 3.7 - 10.4 03/05 [place] HEMATOLOGY RDW 16.6 % 11.5 - 03/05 MH 14.5 [place] HEMATOLOGY MCH 24.1 pg 27.0 - 03/05 MH 31.0 [place] HEMATOLOGY MCHC 33.4 g/dL 32.0 - 03/05 MH 36.0 [place] HEMATOLOGY MCV 72.2 fL 80.0 - 03/05 MH 94.0 [place] HEMATOLOGY Hct 38.1 % 42.0 - 03/05 MH 54.0 [place] HEMATOLOGY RBC X 10x6 5.28 M/CMM 4.70 - 03/05 MH 6.10 [place] HEMATOLOGY Hgb 12.7 g/dL 14.0 - 03/05 MH 18.0 [place] HEMATOLOGY Microcyte 1+ None Seen 03/05 [place] *ABN* (03/05/16 7:30 AM) HEMATOLOGY Basophils # 0.1 K/CMM 0.0 - 0.2 03/05 [place] HEMATOLOGY Monocytes # 0.7 K/CMM 0.0 - 0.8 03/05 [place] HEMATOLOGY Eosinophils 0.1 K/CMM 0.0 - 0.5 03/05 MH # /2015 [place] HEMATOLOGY Segs-Bands # 7.5 K/CMM 1.5 - 8.1 03/05 [place] HEMATOLOGY Lymphocytes 1.6 K/CMM 1.0 - 5.5 03/05 # /2015 [place] HEMATOLOGY Eosinophils 1.2 % 0.0 - 4.0 03/05 [place] HEMATOLOGY Basophils 0.6 % 0.0 - 1.0 03/05 [place] HEMATOLOGY Segs 75.1 % 45.0 - 03/05 MH 75.0 [place] HEMATOLOGY Monocytes 7.4 % 2.0 - 12.0 03/05 [place] HEMATOLOGY Lymphocytes 15.7 % 20.0 - 03/05 40.0 [place] Chest 1view Chest 1view Patient Name: ANNABEL MCCONNELL 03/05 - [facility] /2015 - [place] : 1970; Age: 45 years y/o Male MR: [id number] Read by: Jason Dozier MD Dictated Date/time: [...] unremarkable. IMPRESSION: 1. No active disease. SL: [id number] URINE AND UA RBC 0-2 /HPF 0 - 2 03/02 [place] URINE AND UA Sq Epi None Seen Few 03/02 [place] (03/02/16 8:22 AM) URINE AND UA WBC None Seen None Seen 03/02 [place] (03/02/16 8:22 AM) URINE AND UA pH 6.0 5.0 - 8.0 03/02 [place] URINE AND UA Protein Negative Negative 03/02 STOOL mg/dL mg/dL [place] URINE AND UA Glucose Negative Negative 03/02 STOOL mg/dL mg/dL [place] URINE AND UA Ketones Negative Negative 03/02 STOOL mg/dL mg/dL [place] URINE AND UA Bili Negative Negative 03/02 [place] *NA* (03/02/16 8:22 AM) URINE AND UA Color Yellow Yellow 03/02 [place] *NA* (03/02/16 8:22 AM) URINE AND UA Turbidity Clear Clear 03/02 [place] (03/02/16 8:22 AM) URINE AND UA Spec Grav 1.015 <=1.030 03/02 [place] URINE AND UA Blood Negative Negative 03/02 [place] (03/02/16 8:22 AM) URINE AND UA 0.2 EU/dL 0.1 - 1.0 03/02 STOOL Urobilinogen [place] URINE AND UA Nitrite Negative Negative 03/02 [place] (03/02/16 8:22 AM) URINE AND UA Leuk Est Negative Negative 03/02 STOOL [place] (03/02/16 8:22 AM) CHEM PANEL A/G Ratio 0.7 0.7 - 1.6 03/02 [place] CHEM PANEL Globulin 4.6 g/dL 2.7 - 4.2 03/02 [place] CHEM PANEL B/C Ratio 16 6 - 25 03/02 [place] CHEM PANEL AGAP 10.4 meq/L 10.0 - 03/02 MH 20.0 [place] CHEM PANEL Total 8.0 g/dL 6.4 - 8.4 03/02 Protein [place] CHEM PANEL Bili Total 0.3 mg/dL 0.2 - 1.3 03/02 [place] CHEM PANEL Calcium Lvl 8.7 mg/dL 8.5 - 10.5 03/02 [place] CHEM PANEL CO2 26 meq/L 24 - 32 03/02 [place] CHEM PANEL Chloride Lvl 106 meq/L 95 - 109 03/02 [place] CHEM PANEL Sodium Lvl 138 meq/L 135 - 145 03/02 [place] CHEM PANEL Potassium 4.4 meq/L 3.5 - 5.1 03/02 Lv [place] CHEM PANEL eGFR 83 03/02 Result Comment: [...] is not recommended in the following populations: [place] 3m2 Individuals with unstable creatinine concentrations, including [...] ASPARTATE 13 unit/L 0 - 37 03/02 [place] CHEM PANEL Creatinine 1.07 mg/dL 0.50 - 03/02 MH Lvl 1.40 /2015 [place] CHEM PANEL BUN 17 mg/dL 7 - 22 03/02 [place] CHEM PANEL Glucose Lvl 106 mg/dL 70 - 99 03/02 [place] CHEM PANEL Alk Phos 127 unit/L 39 - 136 03/02 [place] CHEM PANEL Albumin Lvl 3.4 g/dL 3.5 - 5.0 03/02 [place] CHEM PANEL ALANINE 33 unit/L 0 - 65 03/02 AMINOTRANSFE /2015 [place] RASE CHEM PANEL Lipase Lvl 164 unit/L 73 - 393 03/02 [place] HEMATOLOGY Basophils # 0.1 K/CMM 0.0 - 0.2 03/02 [place] HEMATOLOGY Microcyte 1+ None Seen 03/02 [place] *ABN* (03/02/16 5:41 AM) HEMATOLOGY Monocytes 6.7 % 2.0 - 12.0 03/02 [place] HEMATOLOGY Lymphocytes 21.9 % 20.0 - 03/02 MH 40.0 [place] HEMATOLOGY Eosinophils 1.5 % 0.0 - 4.0 03/02 [place] HEMATOLOGY Segs 69.1 % 45.0 - 03/02 75.0 [place] HEMATOLOGY Monocytes # 0.8 K/CMM 0.0 - 0.8 03/02 [place] HEMATOLOGY Lymphocytes 2.6 K/CMM 1.0 - 5.5 03/02 MH # [place] HEMATOLOGY Eosinophils 0.2 K/CMM 0.0 - 0.5 03/02 MH [place] HEMATOLOGY Segs-Bands # 8.1 K/CMM 1.5 - 8.1 03/02 [place] HEMATOLOGY Basophils 0.8 % 0.0 - 1.0 03/02 [place] HEMATOLOGY WBC X 10x3 11.8 K/CMM 3.7 - 10.4 03/02 [place] HEMATOLOGY Hct 37.4 % 42.0 - 03/02 MH 54.0 [place] HEMATOLOGY RBC X 10x6 5.18 M/CMM 4.70 - 03/02 MH 6.10 [place] HEMATOLOGY Hgb 12.5 g/dL 14.0 - 03/02 MH 18.0 /2015 [place] HEMATOLOGY MCH 24.1 pg 27.0 - 03/02 MH 31.0 /2015 [place] HEMATOLOGY RDW 16.7 % 11.5 - 03/02 MH 14.5 /2015 [place] HEMATOLOGY MCHC 33.4 g/dL 32.0 - 03/02 MH 36.0 /2015 [place] HEMATOLOGY MCV 72.1 fL 80.0 - 03/02 94.0 /2015 [place] HEMATOLOGY MPV 7.7 fL 7.4 - 10.4 03/02 [place] HEMATOLOGY Platelet 303 K/CMM 133 - 450 03/02 [place] Chest/Abdom Chest/Abdome CT THORAX/ABDOMEN/PELVIS WITH IV CONTRAST WITH SAGITTAL AND CORONAL REFORMATTED IMAGES 03/02 - [facility] en/Pelvis w n/Pelvis w - [place] IV contrast IV contrast CT CT HISTORY: [...] colonic diverticulosis, small abdominal aortic aneurysm. SL: [id number] Abdomen RUQ Abdomen RUQ ULTRASOUND ABDOMEN RIGHT UPPER QUADRANT 03/02 - [facility] US US /2015 - [place] HISTORY: Abdominal pain, acute; right flank pain [...] steatosis. 2. Otherwise normal abdominal ultrasound. SL: [id number] Renal Stone Renal Stone Patient Name: ANNABEL MCCONNELL 03/02 [facility] CT CT /2015 [facility] : 1970; Age: 45 years y/o Male MR: [id number] Read by: John Paul Carrero MD Dictated Date/time: 03/02/16 05:55 Electronically Signed by: John Paul Carrero MD 03/02/16 05:59 FINAL REPORT Study: Renal Stone CT 03/02/2016 5:25 AM CDT Ordering Physician: Clinical Indication: Abdominal pain, acute; Comparison: None TECHNIQUE: Noncontrasted helical imaging was performed from the kidneys through the symphysis as a renal stone protocol. Multiplanar reformations are available. CT Radiation Dose: NON=[id number] mGy-cm FINDINGS: This examination is limited for [...] - 5.1 02/18 MH S Lvl /2015 [place] ELECTROLYTE Chloride Lvl 104 meq/L 95 - 109 02/18 S [place] ELECTROLYTE Sodium Lvl 136 meq/L 135 - 145 02/18 MH S /2015 [place] ELECTROLYTE Glucose Lvl 147 mg/dL 70 - 99 02/18 MH S [place] ELECTROLYTE Creatinine 0.88 mg/dL 0.50 - 02/18 MH S Lvl 1.40 [place] ELECTROLYTE BUN 10 mg/dL 7 - 22 02/18 MH S /2015 [place] ELECTROLYTE eGFR 103 02/18 Result Comment: The [...] is not recommended in the following populations: [place] 3m2 Individuals with unstable creatinine concentrations, including [...] 8.5 - 10.5 02/18 MH S /2015 [place] ELECTROLYTE CO2 24 meq/L 24 - 32 02/18 MH S /2015 [place] ELECTROLYTE AGAP 12.4 meq/L 10.0 - 02/18 MH S 20.0 [place] HEMATOLOGY RDW 16.3 % 11.5 - 02/18 MH 14. [place] HEMATOLOGY Platelet 273 K/CMM 133 - 450 02/18 [place] HEMATOLOGY MPV 7.5 fL 7.4 - 10.4 02/18 [place] HEMATOLOGY Hgb 12.8 g/dL 14.0 - 02/18 MH 18.0 [place] HEMATOLOGY RBC X 10x6 5.31 M/CMM 4.70 - 02/18 MH 6.10 [place] HEMATOLOGY WBC X 10x3 11.1 K/CMM 3.7 - 10.4 02/18 [place] HEMATOLOGY MCV 72.6 fL 80.0 - 02/18 MH 94.0 [place] HEMATOLOGY Hct 38.6 % 42.0 - 02/18 MH 54.0 [place] HEMATOLOGY MCH 24.1 pg 27.0 - 02/18 MH 31.0 [place] HEMATOLOGY MCHC 33.1 g/dL 32.0 - 02/18 MH 36.0 [place] CARDIAC Troponin-I null 0.00 - 02/17 MH ENZYMES 0.40 [place] HEMATOLOGY Monocytes 7.9 % 2.0 - 12.0 02/17 [place] HEMATOLOGY Lymphocytes 20.8 % 20.0 - 02/17 MH 40.0 [place] HEMATOLOGY Segs 69.1 % 45.0 - 02/17 MH 75.0 [place] HEMATOLOGY Lymphocytes 2.2 K/CMM 1.0 - 5.5 02/17 MH /2015 [place] HEMATOLOGY Monocytes # 0.8 K/CMM 0.0 - 0.8 02/17 [place] HEMATOLOGY Eosinophils 1.6 % 0.0 - 4.0 02/17 [place] HEMATOLOGY Segs-Bands # 7.5 K/CMM 1.5 - 8.1 02/17 [place] HEMATOLOGY Basophils 0.6 % 0.0 - 1.0 02/17 [place] HEMATOLOGY Microcyte 1+ None Seen 02/17 [place] *ABN* (02/18/16 5:20 AM) HEMATOLOGY Basophils # 0.1 K/CMM 0.0 - 0.2 02/17 [place] HEMATOLOGY Eosinophils 0.2 K/CMM 0.0 - 0.5 02/17 MH # /2015 [place] HEMATOLOGY RBC X 10x6 4.91 M/CMM 4.70 - 02/17 MH 6.10 [place] HEMATOLOGY WBC X 10x3 10.8 K/CMM 3.7 - 10.4 02/17 [place] HEMATOLOGY MCH 24.1 pg 27.0 - 02/17 MH 31.0 [place] HEMATOLOGY MCV 73.1 fL 80.0 - 02/17 MH 94.0 [place] HEMATOLOGY Hct 35.9 % 42.0 - 02/17 MH 54.0 [place] HEMATOLOGY Hgb 11.8 g/dL 14.0 - 02/17 MH 18.0 [place] HEMATOLOGY MPV 7.4 fL 7.4 - 10.4 02/17 [place] HEMATOLOGY RDW 16.3 % 11.5 - 02/17 14.5 [place] HEMATOLOGY MCHC 33.0 g/dL 32.0 - 02/17 MH 36.0 [place] HEMATOLOGY Platelet 270 K/CMM 133 - 450 02/17 [place] CARDIAC Troponin-I null 0.00 - 02/16 ENZYMES 0. [place] CHEM PANEL Procalcitoni null 0.00 - 02/16 n Lvl 0.10 [place] CARDIAC Troponin-I null 0.00 - 02/16 ENZYMES 0.40 [place] URINE AND UA Bacteria None Seen None Seen 02/16 STOOL /2015 [place] (02/17/16 6:27 AM) URINE AND UA RBC None Seen 0 - 2 02/16 STOOL /2015 [place] (02/17/16 6:27 AM) URINE AND UA Mucus Few /LPF None Seen 02/16 STOOL /LPF /2015 [place] URINE AND UA Sq Epi Rare /LPF Few /LPF 02/16 STOOL [place] URINE AND UA WBC 0-2 /HPF None Seen 02/16 STOOL /HPF /2015 [place] URINE AND UA Leuk Est Negative Negative 02/16 STOOL /2015 [place] (02/17/16 6:27 AM) URINE AND UA 0.2 EU/dL 0.1 - 1.0 02/16 STOOL Urobilinogen [place] URINE AND UA Nitrite Negative Negative 02/16 STOOL [place] (02/17/16 6:27 AM) URINE AND UA Spec Grav 1.025 <=1.030 02/16 STOOL [place] URINE AND UA Turbidity Clear Clear 02/16 STOOL [place] (02/17/16 6:27 AM) URINE AND UA Color Yellow Yellow 02/16 STOOL [place] *NA* (02/17/16 6:27 AM) URINE AND UA Bili Negative Negative 02/16 STOOL [place] *NA* (02/17/16 6:27 AM) URINE AND UA Blood Negative Negative 02/16 STOOL [place] (02/17/16 6:27 AM) URINE AND UA Ketones Negative Negative 02/16 STOOL mg/dL mg/dL [place] URINE AND UA Glucose Negative Negative 02/16 STOOL mg/dL mg/dL [place] URINE AND UA pH 6.0 5.0 - 8.0 02/16 STOOL [place] URINE AND UA Protein Negative Negative 02/16 STOOL mg/dL mg/dL [place] CARDIAC CK-MB INDEX 1.6 0.0 - 2.5 02/16 ENZYMES [place] CARDIAC CK MB 0.9 ng/mL 0.5 - 3.6 02/16 ENZYMES [place] CARDIAC Total CK 58 unit/L 12 - 191 02/16 ENZYMES [place] CHEM PANEL eGFR 93 02/16 Result Comment: [...] is not recommended in the following populations: [place] 3m2 Individuals with unstable creatinine concentrations, including [...] 33 unit/L 0 - 65 02/16 AMINOTRANS [place] RASE CHEM PANEL CO2 23 meq/L 24 - 32 02/16 [place] CHEM PANEL Calcium Lvl 8.8 mg/dL 8.5 - 10.5 02/16 [place] CHEM PANEL Potassium 4.0 meq/L 3.5 - 5.1 02/16 MH Lvl [place] CHEM PANEL Chloride Lvl 105 meq/L 95 - 109 02/16 [place] [facility] Creatinine 0.97 mg/dL 0.50 - 02/16 MH Lvl 1.40 [place] [facility]M PANEL Glucose Lvl 103 mg/dL 70 - 99 02/16 [place] [facility] BUN 11 mg/dL 7 - 22 02/16 [place] [facility] Albumin Lvl 3.4 g/dL 3.5 - 5.0 02/16 [place] [facility] Alk Phos 128 unit/L 39 - 136 02/16 [place] [facility] Bili Total 0.5 mg/dL 0.2 - 1.3 02/16 [place] [facility] Sodium Lvl 139 meq/L 135 - 145 02/16 [place] [facility] AGAP 15.0 meq/L 10.0 - 02/16 MH 20.0 [place] [facility] B/C Ratio 11 6 - 25 02/16 [place] [facility] Total 8.0 g/dL 6.4 - 8.4 02/16 [place] [facility] ASPARTATE 16 unit/L 0 - 37 02/16 [place] [facility] Globulin 4.6 g/dL 2.7 - 4.2 02/16 [place] [facility] A/G Ratio 0.7 0.7 - 1.6 02/16 [place] HEMATOLOGY Microcyte 1+ None Seen 02/16 [place] *ABN* (02/17/16 5:50 AM) HEMATOLOGY Basophils # 0.1 K/CMM 0.0 - 0.2 02/16 [place] HEMATOLOGY Basophils 0.5 % 0.0 - 1.0 02/16 [place] HEMATOLOGY Lymphocytes 2.4 K/CMM 1.0 - 5.5 02/16 MH # /2015 [place] HEMATOLOG[facility] Monocytes # 0.8 K/CMM 0.0 - 0.8 02/16 [place] HEMATOLOGY Eosinophils 0.1 K/CMM 0.0 - 0.5 02/16 MH # /2015 [place] HEMATOLOG[facility] Segs-Bands # 8.7 K/CMM 1.5 - 8.1 02/16 [place] HEMATOLOGY Eosinophils 1.2 % 0.0 - 4.0 02/16 [place] HEMATOLOG[facility] Segs 72.1 % 45.0 - 02/16 MH 75.0 [place] HEMATOLOGY Lymphocytes 19.8 % 20.0 - 02/16 MH 40.0 [place] HEMATOLOGY Monocytes 6.4 % 2.0 - 12.0 02/16 [place] HEMATOLOG[facility] Platelet 327 K/CMM 133 - 450 02/16 [place] HEMATOLOG[facility] MCH 24.1 pg 27.0 - 02/16 31.0 [place] HEMAT[facility] MCHC 33.3 g/dL 32.0 - 02/16 36.0 [place] HEMAT[facility] MPV 7.6 fL 7.4 - 10.4 02/16 [place] HEMATOLOG[facility] RDW 16.3 % 11.5 - 02/16 14.5 [place] [facility]EMAT[facility] Hgb 13.1 g/dL 14.0 - 02/16 18.0 [place] HEMAT[facility] Hct 39.5 % 42.0 - 02/16 54.0 [place] HEMAT[facility] WBC X 10x3 12.0 K/CMM 3.7 - 10.4 02/16 [place] HEMATOLOG[facility] RBC X 10x6 5.45 M/CMM 4.70 - 02/16 MH 6.10 [place] HEMATOLOGY MCV 72.6 fL 80.0 - 02/16 94.0 [place] Renal Stone Renal Stone Patient Name: ANNABEL MCCONNELL 02/16 - [facility] [place] : 1970; Age: 45 years Male MR: [id number] Read by: Sundar Jeffrey MD Dictated Date/time: 02/17/16 05:53 Electronically Signed by: Sundar Jeffrey MD 02/17/16 06:01 FINAL REPORT Study: Renal Stone CT 02/17/2016 5:26 AM CDT Clinical Indication: Flank Pain. VT. STATED RT. FLANK PAIN AND UPPER CHEST [...] small left renal cyst. 7. Cardiomegaly. SL: [id number] Chest 1view Chest 1view Patient Name: ANNABEL MCCONNELL 02/16 [facility] DX DX [place] : 1970; Age: 45 years y/o Male MR: [id number] Read by: Jaun Guillermo MD Dictated Date/time: [...] Date Comments Source Respitory Rate 18 05/17/2016 [facility] Temperature Oral (F) 98.1 F 05/17/2016 [facility] Heart Rate 72 05/17/2016 [facility] Systolic (mm Hg) 116 05/17/2016 [facility] Diastolic (mm Hg) 76 05/17/2016 [facility] Weight 128.636 05/17/2016 [facility] Temperature Oral (F) 97.6 F 05/17/2016 [facility] Respitory Rate 16 05/17/2016 [facility] Heart Rate 79 05/17/2016 [facility] Systolic (mm Hg) 100 05/17/2016 [facility] Diastolic (mm Hg) 69 05/17/2016 [facility] Respitory Rate 16 05/06/2016 [facility] Systolic (mm Hg) 134 05/06/2016 [facility] Diastolic (mm Hg) 84 05/06/2016 [facility] Heart Rate 61 05/06/2016 [facility] Temperature Oral (F) 97.9 F 05/06/2016 [facility] Respitory Rate 14 05/06/2016 [facility] Temperature Oral (F) 97.4 F 05/06/2016 [facility] Systolic (mm Hg) 117 05/06/2016 [facility] Diastolic (mm Hg) 77 05/06/2016 [facility] Respitory Rate 18 05/06/2016 [facility] Heart Rate 56 05/06/2016 [facility] Systolic (mm Hg) 120 05/06/2016 [facility] Diastolic (mm Hg) 77 05/06/2016 [facility] Heart Rate 62 05/06/2016 [facility] Temperature Oral (F) 97.9 F 05/06/2016 [facility] Weight 131.7 05/06/2016 [facility] BMI Calculated 41.66 05/06/2016 [facility] Height 177.8 cm 05/06/2016 [facility] Weight 127.273 05/05/2016 [facility] Systolic (mm Hg) 118 04/26/2016 [facility] Diastolic (mm Hg) 64 04/26/2016 [facility] Respitory Rate 18 04/26/2016 [facility] Heart Rate 78 04/26/2016 [facility] Temperature Oral (F) 97.4 F 04/26/2016 [facility] Weight 128.182 04/25/2016 [facility] BMI Calculated 40.55 04/25/2016 [facility] Height 177.8 cm 04/25/2016 [facility] Respitory Rate 18 04/25/2016 [facility] Temperature Oral (F) 97.2 F 04/25/2016 [facility] Heart Rate 80 04/25/2016 [facility] Systolic (mm Hg) 137 04/25/2016 [facility] Diastolic (mm Hg) 85 04/25/2016 [facility] Temperature Oral (F) 98.7 F 03/05/2016 [facility] Respitory Rate 16 03/05/2016 [facility] Systolic (mm Hg) 127 03/05/2016 [facility] Diastolic (mm Hg) 68 03/05/2016 [facility] Respitory Rate 16 03/05/2016 [facility] Systolic (mm Hg) 124 03/05/2016 [facility] Diastolic (mm Hg) 76 03/05/2016 [facility] Systolic (mm Hg) 127 03/05/2016 [facility] Diastolic (mm Hg) 77 03/05/2016 [facility] Height 177.8 cm 03/05/2016 [facility] BMI Calculated 40.83 03/05/2016 [facility] Weight 129.091 03/05/2016 [facility] Heart Rate 62 03/05/2016 [facility] Temperature Oral (F) 98.9 F 03/05/2016 [facility] Respitory Rate 18 03/05/2016 [facility] Temperature Oral (F) 98.2 F 03/02/2016 [facility] Heart Rate 58 03/02/2016 [facility] Respitory Rate 16 03/02/2016 [facility] Systolic (mm Hg) 120 03/02/2016 [facility] Diastolic (mm Hg) 66 03/02/2016 [facility] Heart Rate 50 03/02/2016 [facility] Weight 128.636 03/02/2016 [facility] Temperature Oral (F) 98.0 F 03/02/2016 [facility] Respitory Rate 18 03/02/2016 [facility] Systolic (mm Hg) 149 03/02/2016 [facility] Diastolic (mm Hg) 87 03/02/2016 [facility] Heart Rate 69 03/02/2016 [facility] Systolic (mm Hg) 107 02/20/2016 [facility] Diastolic (mm Hg) 66 02/20/2016 [facility] Temperature Oral (F) 98.0 F 02/20/2016 [facility] Respitory Rate 17 02/20/2016 [facility] Heart Rate 81 02/20/2016 [facility] Heart Rate 73 02/19/2016 [facility] Respitory Rate 17 02/19/2016 [facility] Temperature Oral (F) 97.8 F 02/19/2016 [facility] Systolic (mm Hg) 96 02/19/2016 [facility] Diastolic (mm Hg) 63 02/19/2016 [facility] Systolic (mm Hg) 128 02/19/2016 [facility] Diastolic (mm Hg) 84 02/19/2016 [facility] Heart Rate 82 02/19/2016 [facility] Temperature Oral (F) 97.9 F 02/19/2016 [facility] Respitory Rate 17 02/19/2016 [facility] Height 177.8 cm 02/17/2016 [facility] BMI Calculated 40.98 02/17/2016 [facility] Weight 129.545 02/17/2016 [facility] Weight 129.545 02/17/2016 [facility] BMI Calculated 40.98 02/17/2016 [facility] Height 177.8 cm 02/17/2016 [facility] Encounters Location Location Encounter Encounter Reason Attending ADM DC Status Source Details Type Number For Provider Date Date [facility] [id number] Osmar 02/16 02/19 Fred[facility] Roberts /2015 [facility] [id number] Fei 03/02 03/02 Freddy Partida /2015 [facility] [id number] Rachel Platt 03/05 03/05 Freddy /2015 [facility] [id number] Agustin 04/25 04/26 Freddy Lopez /2015 [facility] [id number] Geronimo 05/05 05/07 Freddy Dupont /2015 [facility] [id number] Karey 05/17 05/18 Freddy Zuleta /2015 [facility] Procedures Procedure Code Date Perfomer Comments Source Catheterization of [id number] [facility] right heart Lithotripsy [id number] [facility] Placement of stent in [id number] R RCA 100% [facility] cardiac blockage conduit<sup>1</sup>
[2018-01-09 01:18] LABS: Basophils % 0.8 % (0-1.3); Eosinophils % 0.6 % (0-4.4); Hematocrit 40.9 % (39.6-49.0); Lymphocytes % 26.5 % (15.3-44.8); MCH 26.7 pg (27.0-35.0); MCV 77.3 fL (80-100); MPV 7.8 fL (7.6-11.3); Monocytes % 6.7 % (3.3-12.3); RBC Red Blood Cell Count 5.28 M/uL (4.33-5.43)
[2018-01-09] MEDS ORDERED: ASPIRIN 81 MG CHEWABLE TABLET ONE (01:20)
[2018-01-09] MEDS ORDERED: ONDANSETRON 4 MG/2 ML VIAL ONE (01:21)
[2018-01-09] MEDS ORDERED: FENTANYL CITR 100 MCG/2 ML ONE ×2 (01:21→02:21)
[2018-01-09 01:25] LABS: Protime INR 1.35
[2018-01-09 01:39] LABS: Albumin 3.7 g/dL (3.4-5.0); Bilirubin Direct 0.2 mg/dL (0-0.2); Bilirubin Total 0.4 mg/dL (0.2-1.0); Magnesium 2.2 mg/dL (1.8-2.4); Potassium 3.4 mmol/L (3.5-5.1); Protein, Total 8.7 g/dL (6.4-8.2)
--- NOTE | 2018-01-09 04:16 | ER ---
Nurse's Notes [facility] Name: Marquis Nelson Age: 47 yrs Sex: Male : 1970 Arrival Date: 01/09/2018 Time: 00:37 Bed 8 Private MD: Diagnosis: Acute Chest Pain;Shortness of Breath Presentation: 01/09 00:53 Presenting complaint: Patient states: Pt was discharged from hospital on Friday with tl2 diagnosis of blood clot in neck and multiple PE's. Discharged with warfarin and lovenox. 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 Transition of care: patient was not received from another setting of care. Onset of symptoms was January 09, 2018 at 00:00. Risk Assessment: Do you want to hurt yourself or someone else? Patient reports no desire to harm self or others. Initial Sepsis Screen: Does the patient meet any 2 criteria? No. Patient's initial sepsis screen is negative. Does the patient have a suspected source of infection? No. Patient's initial sepsis screen is negative. Care prior to arrival: None. 00:53 Method Of Arrival: Ambulatory tl2 00:53 Acuity: THANH 3 tl2 Historical: - Allergies: 00:56 Beta Blockers (sensitive/hypotension); tl2 00:56 Flomax; tl2 00:56 Neurontin; tl2 00:56 Skelaxin; tl2 00:56 Stadol; tl2 00:56 tramadol; tl2 - Home Meds: 00:56 allopurinol 300 mg Oral tab 1 tab once daily [Active]; amlodipine 5 mg tab 1 tab once tl2 daily [Active]; atorvastatin 40 mg Oral tab 1 tab once daily [Active]; clonazepam 1 mg Oral TbDL 2 times per day [Active]; docusate sodium 100 mg Oral tab 2 times per day [Active]; furosemide 80 mg Oral tab 2 times per day [Active]; Inspra 50 mg Oral tab 1 tab 2 times per day [Active]; metolazone 2.5 mg Oral tab as needed [Active]; metoprolol succinate 6.25mg Oral Tb24 as needed [Active]; Nitrostat SL as needed [Active]; Novolog Sub-Q [Active]; pantoprazole Oral [Active]; Plavix 75 mg Oral tab 1 tab once daily [Active]; Potassium Chloride 60MEQ Oral 3 times per day [Active]; Ranexa 1,000 mg Oral Tb12 [Active]; Robaxin Oral [Active]; Lovenox 120 mg/0.8 mL Sub-Q syrg once daily [Active]; warfarin 2.5 mg Oral tab 1 tab once daily [Active]; - PMHx: 00:56 AAA; Anemia; Anxiety; Atrial Fib; CHF; GERD; High Cholesterol; Hypertension; Kidney tl2 stones; Myocardial infarction; Pulmonary Embolism; R BUNDLE BRANCH BLOCK; Sleep Apnea; - Immunization history:: Adult Immunizations up to date. - Social history:: Smoking status: Patient/guardian denies using tobacco. - Ebola Screening: : No symptoms or risks identified at this time. - Family history:: not pertinent. - Hospitalizations: : No recent hospitalization is reported. Screenin:58 Abuse screen: Denies threats or abuse. Nutritional screening: No deficits noted. tl2 Tuberculosis screening: No symptoms or risk factors identified. Fall Risk None identified. Assessment: 01:00 General: Appears distressed, comfortable, obese, Behavior is cooperative, appropriate bp for age. Pain: Complains of pain in mid-sternal area. Neuro: Level of Consciousness is awake, alert, obeys commands, Oriented to person, place, time, situation, Appropriate for age. Cardiovascular: Capillary refill < 3 seconds Patient's skin is warm and dry. Respiratory: Airway is patent Respiratory effort is even, unlabored, Respiratory pattern is regular, symmetrical. GI: No signs and/or symptoms were reported involving the gastrointestinal system. : No signs and/or symptoms were reported regarding the genitourinary system. EENT: No deficits noted. Derm: No deficits noted. Musculoskeletal: Circulation, motion, and sensation intact. Range of motion: intact in all extremities. 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 bp 03:30 Reassessment: ALL CURRENT ORDERS COMPLETED, NO ACUTE FINDINGS AT THIS TIME. DISPO jd3 PENDING. 04:30 Reassessment: PT D/C HOME AMBULATORY WITH FAMILY, DX WITH SHORTNESS OF BREATH. bp Vital Signs: 00:56 BP 112 / 83; Pulse 82; Resp 18; Pulse Ox 100% on R/A; Weight 99.79 kg; Height 5 ft. 8 tl2 in. (172.72 cm); Pain 10/10; 01:30 BP 114 / 84; Pulse 82; Resp 16; Pulse Ox 99% ; bp 02:45 BP 120 / 68; Pulse 81; Resp 18; Pulse Ox 95% on R/A; mt 03:30 BP 107 / 70; Pulse 70; Resp 14; Pulse Ox 97% ; jd3 04:30 BP 111 / 71; Pulse 77; Resp 16; Pulse Ox 97% ; bp 00:56 Body Mass Index 33.45 (99.79 kg, 172.72 cm) tl2 ED Course: 00:37 Patient arrived in ED. es 00:50 Jensen Pacheco MD is Attending Physician. wa 00:55 Triage completed. tl2 00:56 Arm band placed on right wrist. tl2 00:58 Patient has correct armband on for positive identification. tl2 01:00 Initial lab(s) drawn, by me, sent to lab. Inserted saline lock: 18 gauge in right fc antecubital area, using aseptic technique. Blood collected. 01:04 Russ Momin, RN is Primary Nurse. bp 01:25 X-ray completed. Portable x-ray completed in exam room. Patient tolerated procedure kw well. 01:26 XRAY Chest (1 view) In Process Unspecified. EDMS 02:37 CT Chest For PE Angio In Process Unspecified. EDMS 04:30 No provider procedures requiring assistance completed. IV discontinued, intact, bp bleeding controlled, No redness/swelling at site. Pressure dressing applied. Administered Medications: 01:21 Drug: Aspirin Chewable Tablet 324 mg Route: PO; bp 03:53 Follow up: Response: No adverse reaction bp 01:21 Drug: Zofran 4 mg Route: IVP; Site: right antecubital; bp 03:53 Follow up: Response: No adverse reaction bp 01:21 Drug: fentaNYL (PF) 75 mcg Route: IVP; Site: right antecubital; bp 03:54 Follow up: Response: Pain is decreased bp 02:30 Drug: fentaNYL (PF) 75 mcg Route: IVP; Site: right antecubital; jd3 03:54 Follow up: Response: Pain is decreased bp Outcome: 04:16 Discharge ordered by . wa 04:43 Discharged to home ambulatory, with family. bp 04:43 Condition: stable 04:43 Discharge instructions given to patient, Instructed on discharge instructions, follow up and referral plans. Demonstrated understanding of instructions, follow-up care. 04:45 Patient left the ED. bp Signatures: Dispatcher [employer] Danni Keys Felicia, RN RN Isidra Garcia Taylor, RN RN tl2 Sujata Villanueva mt, William, MD MD wa Davies, Jonathon, RN RN jd3 Russ Momin RN RN bp
--- NOTE | 2018-01-09 04:16 | EDPHYS ---
Physician Documentation [facility] Name: Marquis Nelson Age: 47 yrs Sex: Male : 1970 Arrival Date: 01/09/2018 Time: 00:37 Bed 8 Private MD: ED Physician Jensen Pacheco HPI: 01/09 19:27 This 47 yrs old Male presents to ER via Ambulatory with complaints of NECK wa PAIN POSSIBLE BLOOD CLOT. 19:27 The patient or guardian reports chest pain that is located primarily in the substernal wa area. Onset: today. The pain does not radiate. Associated signs and symptoms: Pertinent positives: shortness of breath, Pertinent negatives: abdominal pain, cough, dizziness, headache. The chest pain is described as a heaviness, a pressure. Duration: The patient or guardian reports a single episode, that is still ongoing, and worsening. Modifying factors: The symptoms are alleviated by nothing. the symptoms are aggravated by nothing. Severity of pain: At its worst the pain was severe in the emergency department the pain is unchanged. The patient has experienced similar episodes in the past, a few times. The patient has been recently seen by a physician: just discharged from another ER for PE. pt taking lovenox and coumadin at the moment. Historical: - Allergies: 00:56 Beta Blockers (sensitive/hypotension); tl2 00:56 Flomax; tl2 00:56 Neurontin; tl2 00:56 Skelaxin; tl2 00:56 Stadol; tl2 00:56 tramadol; tl2 - Home Meds: 00:56 allopurinol 300 mg Oral tab 1 tab once daily [Active]; amlodipine 5 mg tab 1 tab once tl2 daily [Active]; atorvastatin 40 mg Oral tab 1 tab once daily [Active]; clonazepam 1 mg Oral TbDL 2 times per day [Active]; docusate sodium 100 mg Oral tab 2 times per day [Active]; furosemide 80 mg Oral tab 2 times per day [Active]; Inspra 50 mg Oral tab 1 tab 2 times per day [Active]; metolazone 2.5 mg Oral tab as needed [Active]; metoprolol succinate 6.25mg Oral Tb24 as needed [Active]; Nitrostat SL as needed [Active]; Novolog Sub-Q [Active]; pantoprazole Oral [Active]; Plavix 75 mg Oral tab 1 tab once daily [Active]; Potassium Chloride 60MEQ Oral 3 times per day [Active]; Ranexa 1,000 mg Oral Tb12 [Active]; Robaxin Oral [Active]; Lovenox 120 mg/0.8 mL Sub-Q syrg once daily [Active]; warfarin 2.5 mg Oral tab 1 tab once daily [Active]; - PMHx: 00:56 AAA; Anemia; Anxiety; Atrial Fib; CHF; GERD; High Cholesterol; Hypertension; Kidney tl2 stones; Myocardial infarction; Pulmonary Embolism; R BUNDLE BRANCH BLOCK; Sleep Apnea; - Immunization history:: Adult Immunizations up to date. - Social history:: Smoking status: Patient/guardian denies using tobacco. - Ebola Screening: : No symptoms or risks identified at this time. - Family history:: not pertinent. - Hospitalizations: : No recent hospitalization is reported. ROS: 19:29 Constitutional: Negative for fever, chills, and weight loss, Eyes: Negative for injury, wa pain, redness, and discharge, ENT: Negative for injury, pain, and discharge, Neck: Negative for injury, pain, and swelling, Abdomen/GI: Negative for abdominal pain, nausea, vomiting, diarrhea, and constipation, Back: Negative for injury and pain, : Negative for injury, bleeding, discharge, and swelling, MS/Extremity: Negative for injury and deformity, Skin: Negative for injury, rash, and discoloration, Neuro: Negative for headache, weakness, numbness, tingling, and seizure, Psych: Negative for depression, anxiety, suicide ideation, homicidal ideation, and hallucinations. 19:29 Cardiovascular: Positive for chest pain, Negative for edema, orthopnea, palpitations, paroxysmal nocturnal dyspnea. 19:29 Respiratory: Positive for shortness of breath, Negative for hemoptysis, orthopnea, pleurisy. Exam: 19:30 Constitutional: This is a well developed, well nourished patient who is awake, alert, wa and in no acute distress. Head/Face: Normocephalic, atraumatic. Eyes: Pupils equal round and reactive to light, extra-ocular motions intact. Lids and lashes normal. Conjunctiva and sclera are non-icteric and not injected. Cornea within normal limits. Periorbital areas with no swelling, redness, or edema. ENT: Nares patent. No nasal discharge, no septal abnormalities noted. Tympanic membranes are normal and external auditory canals are clear. Oropharynx with no redness, swelling, or masses, exudates, or evidence of obstruction, uvula midline. Mucous membranes moist. Neck: Trachea midline, no thyromegaly or masses palpated, and no cervical lymphadenopathy. Supple, full range of motion without nuchal rigidity, or vertebral point tenderness. No Meningismus. Chest/axilla: Normal chest wall appearance and motion. Nontender with no deformity. No lesions are appreciated. Abdomen/GI: Soft, non-tender, with normal bowel sounds. No distension or tympany. No guarding or rebound. No evidence of tenderness throughout. Back: No spinal tenderness. No costovertebral tenderness. Full range of motion. Skin: Warm, dry with normal turgor. Normal color with no rashes, no lesions, and no evidence of cellulitis. MS/ Extremity: Pulses equal, no cyanosis. Neurovascular intact. Full, normal range of motion. Neuro: Awake and alert, GCS 15, oriented to person, place, time, and situation. Cranial nerves II-XII grossly intact. Motor strength 5/5 in all extremities. Sensory grossly intact. Cerebellar exam normal. Normal gait. Psych: Awake, alert, with orientation to person, place and time. Behavior, mood, and affect are within normal limits. 19:30 Cardiovascular: Rate: normal, Rhythm: regular, Pulses: no pulse deficits are appreciated, Heart sounds: normal, Edema: is not appreciated, JVD: is not appreciated. 19:30 Respiratory: the patient does not display signs of respiratory distress, Respirations: normal, Breath sounds: are clear throughout, Respiratory rate: normal Vital Signs: 00:56 BP 112 / 83; Pulse 82; Resp 18; Pulse Ox 100% on R/A; Weight 99.79 kg; Height 5 ft. 8 tl2 in. (172.72 cm); Pain 10/10; 01:30 BP 114 / 84; Pulse 82; Resp 16; Pulse Ox 99% ; bp 02:45 BP 120 / 68; Pulse 81; Resp 18; Pulse Ox 95% on R/A; mt 03:30 BP 107 / 70; Pulse 70; Resp 14; Pulse Ox 97% ; jd3 04:30 BP 111 / 71; Pulse 77; Resp 16; Pulse Ox 97% ; bp 00:56 Body Mass Index 33.45 (99.79 kg, 172.72 cm) tl2 MDM: 00:50 Patient medically screened. ks 19:31 Differential diagnosis: abnormal EKG, acute myocardial infarction, coronary artery wa disease chest wall pain, congestive heart failure pericarditis, pneumonia, pneumothorax, pulmonary embolus, thoracic aortic disection, unstable angina. 19:31 Data reviewed: vital signs, nurses notes, lab test result(s), EKG, radiologic studies. ks Test interpretation: by ED physician or midlevel provider: EKG: no acute ischemic changes noted. CXR: within nml limits. CT chest: no PE. . 19:32 Response to treatment: the patient's symptoms have markedly improved after treatment. ks Special discussion: d/c'd home. pt has had full evaluation and already on lovenox and coumadin. pain resolved in ED. deemed eligible for out pt f/u. 01/09 01:04 Order name: Basic Metabolic Panel; Complete Time: ks 01/09 01:04 Order name: CBC with Diff; Complete Time: ks 01/09 01:04 Order name: CPK; Complete Time: ks 01/09 01:04 Order name: LFT's; Complete Time: ks 01/09 01:04 Order name: Magnesium; Complete Time: ks 01/09 01:04 Order name: NT PRO-BNP; Complete Time: ks 01/09 01:04 Order name: PT-INR; Complete Time: ks 01/09 01:04 Order name: Ptt, Activated; Complete Time: ks 01/09 01:04 Order name: Troponin (emerg Dept Use Only); Complete Time: ks 01/09 01:04 Order name: XRAY Chest (1 view) 01/09 01:05 Order name: CT Chest For PE Angio ks 01/09 01:04 Order name: EKG; Complete Time: 01:04 ks 01/09 01:04 Order name: Cardiac monitoring; Complete Time: 01:12 01/09 01:04 Order name: EKG - Nurse/Tech; Complete Time: : ks 01/09 01:04 Order name: IV Saline Lock; Complete Time: : ks 01/09 01:04 Order name: Labs collected and sent; Complete Time: 01: ks 01/09 01:04 Order name: O2 Per Protocol; Complete Time: ks 01/09 01:04 Order name: O2 Sat Monitoring; Complete Time: 01: ks Administered Medications: 01:21 Drug: Aspirin Chewable Tablet 324 mg Route: PO; bp 03:53 Follow up: Response: No adverse reaction bp 01:21 Drug: Zofran 4 mg Route: IVP; Site: right antecubital; bp 03:53 Follow up: Response: No adverse reaction bp 01:21 Drug: fentaNYL (PF) 75 mcg Route: IVP; Site: right antecubital; bp 03:54 Follow up: Response: Pain is decreased bp 02:30 Drug: fentaNYL (PF) 75 mcg Route: IVP; Site: right antecubital; jd3 03:54 Follow up: Response: Pain is decreased bp Disposition: 01/09/18 04:16 Discharged to Home. Impression: Acute Chest Pain, Shortness of Breath. - Condition is Stable. - Discharge Instructions: Shortness of Breath, [id number], Nonspecific Chest Pain, [id number]. - Medication Reconciliation Form, Thank You Letter, Antibiotic Education, Prescription Opioid Use form. - Follow up: Private Physician; When: 1 - 2 days; Reason: Re-evaluation by your physician. - Problem is new. - Symptoms have improved. - Notes: please follow up with your doctor. continue to take your medication as indicated Signatures: Dispatcher [employer] EDAutumn Ugarte RN RN tl2 Jensen Pacheco MD MD wa Davies, Jonathon, RN RN jRuss Ricks RN RN bp Corrections: (The following items were deleted from the chart) 04:45 04:16 01/09/2018 04:16 Discharged to Home. Impression: Acute Chest Pain; Shortness of bp Breath. Condition is Stable. Forms are Medication Reconciliation Form, Thank You Letter, Antibiotic Education, Prescription Opioid Use. Follow up: Private Physician; When: 1 - 2 days; Reason: Re-evaluation by your physician. Problem is new. Symptoms have improved. ks
[2018-01-09 04:52] VITALS: O2SAT 97
[2018-01-09 04:53] VITALS: BP 111/71
--- NOTE | 2018-01-09 08:03 | EKG ---
Test Date: 2018-01-09 Test Time: 01:07:00 Motion Picture Operator: RT-O MEASUREMENT RESULTS: Intervals: Rate: 82 SC: 170 QRSD: 138 QT: 456 QTc: 532 [place]: P: 2 SC: 170 QRS: -20 T: 6 INTERPRETIVE STATEMENTS: Sinus rhythm with fusion complexes Right bundle branch block Inferior infarct, age undetermined Abnormal ECG Compared to ECG 01/09/2018 01:05:54 Fusion complex(es) now present Myocardial infarct finding still present Electronically Signed On 01-09-18 08:03:05 CDT by Ole Tesfaye
--- NOTE | 2018-01-09 08:04 | EKG ---
Test Date: 2018-01-09 Test Time: 01:05:54 Inspector Repairer [place]: RT-O MEASUREMENT RESULTS: Intervals: Rate: 83 [place]: 162 QRSD: 138 QT: 422 QTc: 495 [place]: P: 21 [place]: 162 QRS: -14 T: 10 INTERPRETIVE STATEMENTS: Normal sinus rhythm Right bundle branch block Inferior infarct, age undetermined Abnormal ECG Compared to ECG 01/09/2018 01:05:13 Right bundle-branch block now present Fusion complex(es) no longer present Incomplete right bundle-branch block no longer present ST (T wave) deviation no longer present Prolonged QT interval no longer present Myocardial infarct finding still present Electronically Signed On 01-09-18 08:03:06 CDT by Ole Tesfaye
--- NOTE | 2018-01-09 08:04 | EKG ---
Test Date: 2018-01-09 Test Time: 01:05:13 Iron Plastic Bullet Maker: RT-O MEASUREMENT RESULTS: Intervals: Rate: 91 [place]: 178 QRSD: 114 QT: 412 QTc: 506 [place]: P: 14 [place]: 178 QRS: 3 T: 35 INTERPRETIVE STATEMENTS: Sinus rhythm with fusion complexes Incomplete right bundle branch block Inferior infarct, possibly acute Marked ST abnormality, possible septal subendocardial injury Prolonged QT ACUTE NH Abnormal ECG Compared to ECG 12/25/2017 15:19:25 Fusion complex(es) now present Incomplete right bundle-branch block now present ST (T wave) deviation now present Prolonged QT interval now present Right bundle-branch block no longer present Myocardial infarct finding still present Electronically Signed On 01-09-18 08:03:06 CDT by Ole Tesfaye
--- NOTE | 2018-01-09 08:39 | RAD REPORT ---
EXAM DESCRIPTION: Linh Single View01/09/2018 1:26 am CLINICAL HISTORY: Chest pain COMPARISON: December 25, 2017 FINDINGS: The lungs appear clear of acute infiltrate. The heart is mildly enlarged IMPRESSION: No acute abnormalities displayed
--- NOTE | 2018-01-09 09:13 | RAD REPORT ---
EXAM DESCRIPTION: CT - Chest For Pe Angio - 01/09/2018 3:22 am CLINICAL HISTORY: Chest pain COMPARISON: June 2017 TECHNIQUE: Dynamically enhanced axial 3 mm thick images of the chest were obtained during administra tion of <100> mL Isovue 370 IV contrast. Coronal and oblique reconstruction images were generated and reviewed. Exam utilizes a protocol for optimal evaluation of pulmonary arterial tree.A preliminary r eport was generated by virtual radiologic can review prior to dictation Maximum intensity projections 3D imaging was utilized All CT scans are performed using dose optimization technique as appropriate and may include automated exposure control or mA/KV adjustment according to patient size. FINDINGS: The evaluation of the peripheral pulmonary arteries is somewhat limited secondary to respi ratory motion artifact. A pulmonary embolus is not seen. A thoracic aortic aneurysm is not noted. A pleural effusion is not seen. A pericardial effusion is not seen. A lung consolidation is not present. Fatty infiltration liver is present IMPRESSION: Negative for a pulmonary embolism.
== END 2018-01-09 04:45 | disposition home or self-care (01) ==
LOC: ER 00:33
DX: R06.02 Shortness of breath (principal); I10 Essential (primary) hypertension; I48.91 Unspecified atrial fibrillation; I50.9 Heart failure, unspecified; E78.00 Pure hypercholesterolemia, unspecified; Z79.01 Long term (current) use of anticoagulants; Z79.4 Long term (current) use of insulin; Z88.5 Allergy status to narcotic agent; Z88.6 Allergy status to analgesic agent; Z88.8 Allergy status to other drugs, medicaments and biological substances
CPT/HCPCS: 36415; 71045; 71275; 80048; 80076; 82550; 83735; 83880; 84484; 85025; 85610; 85730; 93005; 96374; 96375; 99284; J2405; J3010; Q9967

== ENCOUNTER 2018-01-11 13:41 | Emergency (ER) | payer OTHER ==
--- OUTSIDE RECORDS SUMMARY | 2018-01-11 13:47 | XMS REPORT | Continuity of Care Document ---
:1970 Author Organization Interface Problems Problem Status Onset Classification Date Comments Source Date Reported Discharge Diagnosis: 05/20/2016 Chest pain 016 [place] CHEST PAIN Active [address] ACS, CHEST PAIN Active [facility] [address] [employer] Discharge Diagnosis: 04/28/2016 Flank pain 016 [place] KIDNEY STONES Active [facility] [address] Discharge Diagnosis: 03/08/2016 Acute chest pain 016 [place] Discharge Diagnosis: 03/05/2016 Renal calculus 016 [place] KIDNEY STONE Active [address] PYELONEPHRITIS Active [address] 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 [place] Congestive heart Resolved Problem 05/20/2016 2L fluid failure<sup>1</sup> restrictio [place] n/24hrs Diabetes Resolved Problem 05/20/2016 [facility] Hypercholesteremia Resolved Problem 05/20/2016 [facility] Hypertension Resolved Problem 05/20/2016 [facility] Kidney stone Resolved Problem 05/20/2016 [facility] Heart Resolved Problem 05/20/2016 December 04, attack<sup>2</sup> 2016 [place] Bundle branch block, Resolved Problem 05/20/2016 right [place] Sleep apnea Resolved Problem 05/20/2016 [facility] TUBULO-INTERSTITIAL Active [facility] NEPHRITIS, NOT SPCF [employer] CHEST PAIN, Active [facility] UNSPECIFIED [place] Medications Medication Details Route Status Patient Ordering Order Source Instructions Provider Date Aspirin 81 mg, 1 tab, Inactive Route: PO, Drug 2015 [place] form: ECTAB, ONCE, Dosing Weight 128.636, kg, Priority: STAT, Start date: 05/17/16 17:16:00 MANAGER OF TRANSPORTATION, Stop date: 05/17/16 17:16:00 CSTNotes: Do not crush or chew. (Same As: Ecotrin) Saline Flush 10 mL, Route: Inactive 0.9% IVP, Drug Form: 2015 [place] INJ, Dosing Weight 128.636, kg, PRN, PRN Line Flush, Start date: 05/17/16 15:48:00 MANAGER OF TRANSPORTATION, Duration: 30 day, Stop date: 06/16/16 15:47:00 CSTNotes: (Same as: BD Posiflush) Plavix 75 mg, 1 tab, No Longer Route: PO, Drug Active 2015 [place] form: TAB, Daily, Dosing Weight 131.7, kg, Start date: 05/07/16 9:00:00 MANAGER OF TRANSP[employer]ATION, Duration: 30 day, Stop date: 06/05/16 9:00:00 CSTNotes: (Same As: Plavix) metoprolol 25 mg 25 mg=1 tab, PO, Active oral tablet, Daily, # 30 tab, 2015 [place] extended release 0 Refill(s) Protonix 40 mg, 1 tab, Inactive Route: PO, Drug 2015 [place] form: ECTAB, Before Dinner, Dosing Weight 131.7, kg, Start date: 05/06/16 16:30:00 MANAGER OF TRANSPORTATION, Duration: 30 day, Stop date: 06/04/16 16:30:00 CSTNotes: Tablet should not be chewed or crushed. (Same as: Protonix) Lisinopril 2.5 mg, 0.5 tab, Inactive Route: PO, Drug 2015 [place] form: TAB, Daily, Dosing Weight 131.7, kg, Start date: 05/06/16 9:00:00 MANAGER [employer]ATION, Duration: 30 day, Stop date: 06/04/16 9:00:00 CSTNotes: (Same as: Prinivil, Zestril) Aspirin 325 MG 325 mg, 1 tab, Inactive Oral Tablet Route: PO, Drug 2015 [place] form: TAB, Daily, Dosing Weight 127.273, kg, Start date: 05/06/16 9:00:00 MANAGER OF [employer]SP[employer]ATION, Duration: 30 day, Stop date: 06/04/16 9:00:00 CSTNotes: Take with food. atorvastatin 40 40 mg=1 tab, PO, Active mg oral tablet Bedtime, # 90 2015 [place] tab, 1 Refill(s) Alprazolam 1 MG 1 mg, 2 tab, No Longer Oral Tablet Route: PO, Drug Active 2015 [place] [Xanax] form: TAB, Q8H, Dosing Weight 131.7, kg, PRN Anxiety, Start date: 05/05/16 22:49:00 MANAGER OF TRANSPORTATION, Duration: 30 day, Stop date: 06/04/16 22:48:00 CSTNotes: With food or milk (Same as: Xanax) Lipitor 80 mg, 2 tab, No Longer Route: PO, Drug Active 2015 [place] form: TAB, Bedtime, Dosing Weight 127.273, kg, Start date: 05/05/16 21:00:00 MANAGER OF [employer]SP[employer]ATION, Duration: 30 day, Stop date: 06/03/16 21:00:00 CSTNotes: (Same as: Lipitor) Clindamycin 300 mg, 2 cap, No Longer Route: PO, Drug Active 2015 [place] form: CAP, ABXQ6H, Dosing Weight 127.273, kg, Start date: 05/05/16 21:00:00 MANAGER OF TRANSPORTATION, Stop date: 06/04/16 15:00:00 CSTNotes: (Same As: Cleocin) Saline Flush 10 ml, Route: No Longer 0.9% IVP, Drug Form: Active 2015 [place] INJ, Dosing Weight 127.273, kg, Q12H, Start date: 05/05/16 21:00:00 MANAGER OF TRANSPORTATION, Duration: 30 day, Stop date: 06/04/16 9:00:00 CSTNotes: preservative free. Insulin, Aspart, 1 unit, 0.01 mL, No Longer Human Route: SUB-Q, Active 2015 [place] Drug form: SOLN, Bedtime, Dosing Weight 127.273, kg, PRN Blood Glucose Results, Start date: 05/05/16 20:27:00 MANAGER OF TRANSPORTATION, Duration: 30 day, Stop date: 06/04/16 20:26:00 CSTNotes: Roll in palms of hands gently; Do not shake vigorously. (Same as: NovoLOG) "single patient use only" WASTE: F/P - Black; E - Municipal Trash Bin Stable for 28 days at room temperature. Expires in days from Da te Glucagon 1 mg, Route: IM, No Longer Drug form: Active 2015 [place] PDR/INJ, PRN, Dosing Weight 127.273, kg, PRN Blood Glucose Results, Start date: 05/05/16 20:27:00 MANAGER OF TRANSPORTATION, Duration: 30 day, Stop date: 06/04/16 20:26:00 MANAGER OF TRANSPORTATION Dextrose 50% 12.5 gm, 25 mL, No Longer Syringe Route: IVP, Drug Active 2015 [place] Form: INJ, Dosing Weight 127.273, kg, PRN, PRN Blood Glucose Results, Start date: 05/05/16 20:27:00 MANAGER OF TRANSPORTATION, Duration: 30 day, Stop date: 06/04/16 20:26:00 MANAGER OF TRANSPORTATION Morphine 2 mg, 1 mL, No Longer Route: IVP, Drug Active 2015 [place] form: INJ, Q2H, Dosing Weight 127.273, kg, PRN as needed for chest pain, Priority: STAT, Start date: 05/05/16 20:00:00 MANAGER OF TRANSPORTATION, Duration: 30 day, Stop date: 06/04/16 19:59:00 CSTNotes: (Same as:MORPhine Sulfate) Plavix 75 mg, 1 tab, Inactive Route: PO, Drug 2015 [place] form: TAB, ONCE, Dosing Weight 127.273, kg, Priority: STAT, Start date: 05/05/16 19:58:00 MANAGER OF TRANSPORTATION, Stop date: 05/05/16 19:58:00 CSTNotes: (Same As: Plavix) Saline Flush 10 ml, Route: No Longer 0.9% IVP, Drug Form: Active 2015 [place] INJ, Dosing Weight 127.273, kg, PRN, PRN Line Flush, Start date: 05/05/16 19:55:00 MANAGER OF TRANSPORTATION, Duration: 30 day, Stop date: 06/04/16 19:54:00 CSTNotes: (Same as: BD Posiflush) Albuterol 0.833 3 ml, Route: No Longer MG/ML / NEB, Drug Form: Active 2015 [place] Ipratropium SOLN, Dosing [place] 0.167 Weight 127.273, MG/ML Inhalant kg, PRN, PRN Solution Respiratory Protocol, Start date: 05/05/16 19:55:00 MANAGER OF TRANSPORTATION, Duration: 30 day, Stop date: 06/04/16 19:54:00 CSTNotes: (Same as: Duoneb) Nystatin 100 1 appl, Route: No Longer UNT/MG Topical TOP, PRN, Drug Active 2015 [place] Powder form: PWDR, PRN For Fungal Prophylaxis, Start date: 05/05/16 19:55:00 MANAGER OF TRANSPORTATION, Duration: 30 day, Stop date: 06/04/16 19:54:00 CSTNotes: (Same as:Mycostatin, Nilstat) For external use only. Nitroglycerin 100 mg, 250 mL, No Longer Rate: Titrate, Active 2015 [place] Start Dose: 10 microgram/min, Titration: 10 microgram/min [...] Volume: 500 mL, Start date: 05/05/16 19:43:00 MANAGER OF TRANSPORTATION, Duration: 30 day, Stop date: 06/04/16 19:42:00 MANAGER OF TRANSPORTATION Heparin 60 Route: IVP, PRN, No Longer unit/kg Bolus 5,800 unit, 5.8 Active 2015 [place] (Heparin Dosing mL, Drug form: Weight) INJ, PRN, Heparin Protocol, Start date: 05/05/16 19:43:00 MANAGER OF TRANSPORTATION Stop date: 06/04/16 19:42:00 MANAGER OF TRANSPORTATION Heparin 30 Route: IVP, PRN, No Longer unit/kg Bolus 2,900 unit, 2.9 Active 2015 [place] (Heparin Dosing mL, Drug form: Weight) INJ, PRN, Heparin Protocol, Start date: 05/05/16 19:43:00 MANAGER OF TRANSPORTATION Stop date: 06/04/16 19:42:00 MANAGER OF TRANSPORTATION Heparin - one 4,000 unit, 4 Inactive time bolus for mL, Route: IVP, 2016 [place] ACS Drug form: INJ, ONCE, Dosing Weight 127.273, kg, Priority: STAT, Start date: 05/05/16 19:43:00 MANAGER OF TRANSPORTATION, Stop date: 05/05/16 19:43:00 MANAGER OF TRANSPORTATION Morphine 4 mg, 1 mL, Inactive Route: IVP, Drug 2015 [place] form: INJ, ONCE, Dosing Weight 127.273, kg, Priority: STAT, Start date: 05/05/16 19:25:00 MANAGER OF TRANSPORTATION, Stop date: 05/05/16 19:25:00 CSTNotes: (Same as:MORPhine Sulfate) Nitroglycerin 1 inch, Route: Inactive 0.02 MG/MG TOP, Dosing 2015 [place] Topical Ointment Weight 127.273, kg, ONCE, STAT, Start date: 05/05/16 17:40:00 MANAGER OF TRANSPORTATION, Stop date: 05/05/16 17:40:00 MANAGER OF TRANSPORTATION Aspirin 81 MG 243 mg, Route: Inactive Chewable Tablet PO, Drug form: 2015 [place] CHEWTAB, ONCE, Dosing Weight 127.273, kg, Priority: STAT, Start date: 05/05/16 17:17:00 MANAGER OF TRANSPORTATION, Stop date: 05/05/16 17:17:00 MANAGER OF TRANSPORTATION Morphine 4 mg, Route: Inactive IVP, ONCE, 2015 [place] Dosing Weight 127.273, kg, Priority: STAT, Start date: 05/05/16 17:15:00 MANAGER OF TRANSPORTATION, Stop date: 05/05/16 17:15:00 MANAGER OF TRANSPORTATION Saline Flush 10 mL, Route: No Longer 0.9% IVP, Drug Form: Active 2015 [place] INJ, Dosing Weight 128.182, kg, PRN, PRN Line Flush, Start date: 05/05/16 16:55:00 MANAGER OF TRANSPORTATION, Duration: 30 day, Stop date: 06/04/16 16:54:00 CSTNotes: preservative free. Acetaminophen 1 - 2 tab, PO, No Longer 300 MG / Codeine Q4H, PRN Pain, X Active 2015 [place] Phosphate 30 MG 2 day, # 20 tab, Oral Tablet 0 Refill(s) [Tylenol with Codeine #3] Morphine 4 mg, 1 mL, Inactive Route: IVP, Drug 2015 [place] form: INJ, ONCE, Dosing Weight 128.182, kg, Priority: STAT, Start date: 04/25/16 19:51:00 CDT, Stop date: 04/25/16 19:51:00 CDTNotes: (Same as:MORPhine Sulfate) Zofran 4 mg, 2 mL, Inactive Route: IVP, Drug 2015 [place] form: INJ, ONCE, Dosing Weight 128.182, kg, Priority: STAT, Start date: 04/25/16 18:23:00 CDT, Stop date: 04/25/16 18:23:00 CDTNotes: (Same as: Zofran) MEDICATION WASTE Product Size: 4 mg Product Wasted: ___ mg Morphine 4 mg, 1 mL, Inactive Route: IVP, Drug 2015 [place] form: INJ, ONCE, Dosing Weight 128.182, kg, Priority: STAT, Start date: 04/25/16 18:23:00 CDT, Stop date: 04/25/16 18:23:00 CDTNotes: (Same as:MORPhine Sulfate) Saline Flush 10 mL, Route: Inactive 0.9% IVP, Drug Form: 2015 [place] INJ, Dosing Weight 129.091, kg, PRN, PRN Line Flush, Start date: 04/25/16 18:07:00 CDT, Duration: 30 day, Stop date: 05/25/16 17:06:00 CSTNotes: (Same as: BD Posiflush) Acetaminophen 1 tab, PO, Q6H, Active 300 MG / Codeine PRN Pain, X 5 2015 [place] Phosphate 30 MG day, # 20 tab, 0 Oral Tablet Refill(s) Morphine 4 mg, Route: Inactive IVP, ONCE, 2015 [place] Dosing Weight 129.091, kg, Priority: STAT, Start date: 03/05/16 8:44:00 CDT, Stop date: 03/05/16 8:44:00 CDT Ondansetron 4 mg, Route: Inactive IVP, Drug form: 2015 [place] INJ, ONCE, Dosing Weight 129.091, kg, Priority: STAT, Start date: 03/05/16 7:35:00 CDT, Stop date: 03/05/16 7:35:00 CDT Aspirin 324 mg, Route: Inactive PO, ONCE, Dosing 2015 [place] Weight 129.091, kg, Priority: STAT, Start date: 03/05/16 7:22:00 CDT, Stop date: 03/05/16 7:22:00 CDT Morphine 2 mg, Route: Inactive IVP, ONCE, 2015 [place] Dosing Weight 129.091, kg, Priority: STAT, Start date: 03/05/16 7:22:00 CDT, Stop date: 03/05/16 7:22:00 CDT Saline Flush 10 mL, Route: Inactive 0.9% IVP, Drug Form: 2015 [place] INJ, Dosing Weight 129.091, kg, PRN, PRN Line Flush, Start date: 03/05/16 7:22:00 CDT, Duration: 30 day, Stop date: 04/04/16 7:21:00 CDTNotes: (Same as: BD Posiflush) Dilaudid 0.5 mg, 0.5 mL, Inactive Route: IVP, Drug 2015 [place] form: INJ, ONCE, Dosing Weight 128.636, kg, Priority: STAT, Start date: 03/02/16 7:40:00 CDT, Stop date: 03/02/16 7:40:00 CDTNotes: Same as: Dilaudid Ketorolac 30 mg, 1 mL, Inactive Route: IVP, Drug 2015 [place] form: INJ, ONCE, Dosing Weight 128.636, kg, Priority: STAT, Start date: 03/02/16 5:25:00 CDT, Stop date: 03/02/16 5:25:00 CDTNotes: (Same as:Toradol) IV bolus must be given >15 seconds. Give IM administration slowly and deeply into the muscle. Not for use > 4 days MEDICATION WASTE Product Size: 30 mg Product Wasted: ___ mg Morphine 4 mg, 1 mL, Inactive Route: IVP, Drug 2015 [place] form: INJ, ONCE, Dosing Weight 128.636, kg, Priority: STAT, Start date: 03/02/16 5:25:00 CDT, Stop date: 03/02/16 5:25:00 CDTNotes: (Same as:MORPhine Sulfate) Ondansetron 4 mg, 2 mL, Inactive Route: IVP, Drug 2015 [place] form: INJ, ONCE, Dosing Weight 128.636, kg, Priority: STAT, Start date: 03/02/16 5:25:00 CDT, Stop date: 03/02/16 5:25:00 CDTNotes: (Same as: Zofran) MEDICATION WASTE Product Size: 4 mg Product Wasted: ___ mg Saline Flush 10 mL, Route: Inactive 0.9% IVP, Drug Form: 2015 [place] INJ, Dosing Weight 128.636, kg, PRN, PRN Line Flush, Start date: 03/02/16 5:25:00 CDT, Duration: 30 day, Stop date: 04/01/16 5:24:00 CDTNotes: (Same as: BD Posiflush) Sodium Chloride 1,000 mL, 2,000 Inactive 0.154 MEQ/ML ml/hr, Infuse 2015 [place] Injectable Over: 30 Solution minutes, Route: IV, 1,000, Drug form: INJ, ONCE, Priority: STAT, Dosing Weight 128.636 kg, Start date: 03/02/16 5:25:00 CDT, Duration: 1 doses or times, Stop date: 03/02/16 5:25:00 CDT Acetaminophen 1 tab, PO, Q6H, Active 300 MG / Codeine PRN Pain, # 28 2015 [place] Phosphate 30 MG tab, 0 Refill(s) Oral Tablet [Tylenol with Codeine #3] Protonix 40 mg, 1 tab, No Longer Route: PO, Drug Active 2015 [place] form: ECTAB, Before Breakfast, Dosing Weight 129.545, kg, Start date: 02/18/16 7:30:00 CDT, Duration: 30 day, Stop date: 03/18/16 7:30:00 CDTNotes: Tablet should not be chewed or crushed. (Same as: Protonix) Lipitor 80 mg, 2 tab, No Longer Route: PO, Drug Active 2015 [place] form: TAB, Bedtime, Dosing Weight 129.545, kg, Start date: 02/17/16 21:00:00 CDT, Duration: 30 day, Stop date: 03/17/16 21:00:00 CDTNotes: (Same as: Lipitor) Morphine 2 mg, 1 mL, No Longer Route: IVP, Drug Active 2015 [place] form: INJ, Q4H, Dosing Weight 129.545, kg, PRN Pain Score 7-10, Start date: 02/17/16 11:54:00 CDT, Duration: 30 day, Stop date: 03/18/16 11:53:00 CDTNotes: (Same as:MORPhine Sulfate) Lovenox 40 mg, 0.4 mL, No Longer Route: SUB-Q, Active 2015 [place] Drug form: INJ, [id number], Dosing Weight 129.545, kg, Start date: 02/17/16 10:00:00 CDT, Duration: 30 day, Stop date: 03/17/16 10:00:00 CDTNotes: (Same as: Lovenox) Lisinopril 2.5 mg, 0.5 tab, No Longer Route: PO, Drug Active 2015 [place] form: TAB, Daily, Dosing Weight 129.545, kg, Start date: 02/17/16 9:55:00 CDT, Duration: 30 day, Stop date: 03/18/16 9:00:00 CDTNotes: (Same as: Prinivil, Zestril) Imdur 30 mg, 1 tab, No Longer Route: PO, Drug Active 2015 [place] form: ERTAB, QAM, Dosing Weight 129.545, kg, Start date: 02/17/16 9:54:00 CDT, Duration: 30 day, Stop date: 03/18/16 9:00:00 CDTNotes: (Same as:Imdur) "Do Not Crush" Take on empty stomach/ full glass of water. Do not crush Plavix 75 mg, 1 tab, No Longer Route: PO, Drug Active 2015 [place] form: TAB, Daily, Dosing Weight 129.545, kg, Start date: 02/17/16 9:54:00 CDT, Duration: 30 day, Stop date: 03/18/16 9:00:00 CDTNotes: (Same As: Plavix) Aspirin 81 MG 81 mg, 1 tab, No Longer Enteric Coated Route: PO, Drug Active 2015 [place] Tablet form: ECTAB, Daily, Dosing Weight 129.545, kg, Start date: 02/17/16 9:54:00 CDT, Duration: 30 day, Stop date: 03/18/16 9:00:00 CDTNotes: Do not crush or chew. (Same As: Ecotrin) Zofran ODT 4 mg, 1 tab, No Longer Route: PO, Drug Active 2015 [place] form: TABDIS, Q12H, Dosing Weight 129.545, kg, PRN Nausea, Start date: 02/17/16 9:25:00 CDT, Duration: 30 day, Stop date: 03/18/16 9:24:00 CDTNotes: (Same as: Zofran ODT) Nitroglycerin 0.4 mg, 1 tab, No Longer 0.4 MG Route: SL, Drug Active 2015 [place] Sublingual form: TAB, Tablet Q5Min, Dosing [Nitrostat] Weight 129.545, kg, PRN Chest Pain, Start date: 02/17/16 9:25:00 CDT, Duration: 30 day, Stop date: 03/18/16 9:24:00 CDTNotes: (Same as:Nitroquick, Nitrostat) "Do Not Crush" Sublingual tablet Alprazolam 1 MG 1 mg, 1 tab, No Longer Oral Tablet Route: PO, Drug Active 2015 [place] [Xanax] form: TAB, Q8H, Dosing Weight 129.545, kg, PRN Anxiety, Start date: 02/17/16 9:23:00 CDT, Duration: 30 day, Stop date: 03/18/16 9:22:00 CDTNotes: With food or milk (Same as: Xanax) pneumococcal 0.5 mL, Route: Inactive capsular IM, Drug Form: 2016 [place] polysaccharide INJ, Daily, type 1 vaccine / [...] No Longer Disintegrating Q12H, PRN Active 2015 [place] Tablet [Zofran] Nausea, 0 Refill(s) Aspirin 81 MG 81 mg=1 tab, PO, Active Enteric Coated Daily, # 90 tab, 2015 [place] Tablet 3 Refill(s) Nitroglycerin 0.4 mg=1 tab, No Longer 0.4 MG SL, Q5Min, PRN Active 2015 [place] Sublingual Chest Pain, # Tablet 100 tab, 0 [Nitrostat] Refill(s) pantoprazole 40 40 mg=1 tab, PO, Active MG Enteric Daily, # 30 tab, 2016 [place] Coated Tablet 0 Refill(s) [Protonix] 24 HR Isosorbide 30 mg=1 tab, PO, Active Mononitrate 30 QAM, # 30 tab, 0 2015 [place] MG Extended Refill(s) Release Tablet [Imdur] Hydroxyzine 25 mg=1 tab, PO, No Longer Hydrochloride 25 Bedtime, PRN Active 2016 [place] MG Oral Tablet Sleep, # 30 tab, 0 Refill(s) Furosemide 20 MG 20 mg=1 tab, PO, Active Oral Tablet Daily, # 30 tab, 2016 [place] 0 Refill(s) Potassium 20 mEq=1 tab, Active Chloride 20 MEQ PO, Daily, # 90 2016 [place] Extended Release tab, 1 Refill(s) Tablet [Klor-Con] Alprazolam 1 MG 1 mg=1 tab, PO, Active Oral Tablet Q8H, PRN 2016 [place] [Xanax] Anxiety, 0 Refill(s) Metformin 1 tab, PO, BID, Active hydrochloride # 60 tab, 0 2015 [place] 500 MG / Refill(s) repaglinide 1 MG Oral Tablet Acetaminophen 1 tab, PO, Q6H, No Longer 300 MG / Codeine PRN Pain, # 28 Active 2016 [place] Phosphate 30 MG tab, 0 Refill(s) Oral Tablet [Tylenol with Codeine #3] lisinopril 2.5 2.5 mg=1 tab, Active mg oral tablet PO, Daily, # 30 2016 [place] tab, 0 Refill(s) clopidogrel 75 75 mg=1 tab, PO, Active MG Oral Tablet Daily, # 30 tab, 2016 [place] [Plavix] 0 Refill(s) atorvastatin 80 80 mg=1 tab, PO, Active MG Oral Tablet Bedtime, # 30 2016 [place] [Lipitor] tab, 0 Refill(s) Ceftriaxone 1 gm, Route: Inactive IVPB, Drug form: 2015 [place] PDR/INJ, ONCE, Dosing Weight 129.545, kg, Priority: STAT, Start date: 02/17/16 7:01:00 CDT, Stop date: 02/17/16 7:01:00 CDT Dilaudid 0.5 mg, Route: Inactive IVP, ONCE, 2015 [place] Dosing Weight 129.545, kg, Priority: STAT, Start date: 02/17/16 6:28:00 CDT, Stop date: 02/17/16 6:28:00 CDT Zofran 4 mg, Route: Inactive IVP, Drug form: 2015 [place] INJ, ONCE, Dosing Weight 129.545, kg, Priority: STAT, Start date: 02/17/16 5:32:00 CDT, Stop date: 02/17/16 5:32:00 CDT Dilaudid 0.5 mg, Route: Inactive IVP, ONCE, 2015 [place] Dosing Weight 129.545, kg, Priority: STAT, Start date: 02/17/16 5:32:00 CDT, Stop date: 02/17/16 5:32:00 CDT Saline Flush 10 mL, Route: Inactive 0.9% IVP, Drug Form: 2015 [place] INJ, kg, PRN, PRN Line Flush, Start date: 02/17/16 5:19:00 CDT, Duration: 30 day, Stop date: 03/18/16 5:18:00 CDTNotes: (Same as: BD Posiflush) Allergies, Adverse Reactions, Alerts Substance Category Reaction Severity Reaction Status Date Comments Source type Reported beta Assertion Drug Active blockers allergy [place] Flomax Assertion Drug Active allergy [place] Stadol Assertion Drug Active MH allergy [place] traMADol Assertion Drug Active MH allergy [place] Immunizations Immunization Date Given Site Status Last Updated Comments Source pneumococcal 02/17/2016 Not Given [facility] 23-valent vaccine Results Order Name Results Value Reference Date Interpretation Comments Source Range URINE AND UA Mucus Few /LPF None Seen 05/17 STOOL /LPF [place] URINE AND UA Leuk Est Negative Negative 05/17 STOOL [place] (05/17/16 5:16 PM) URINE AND UA Bili Negative Negative 05/17 STOOL [place] *NA* (05/17/16 5:16 PM) URINE AND UA Ketones Negative Negative 05/17 STOOL mg/dL mg/dL [place] URINE AND UA Nitrite Negative Negative 05/17 STOOL [place] (05/17/16 5:16 PM) URINE AND UA 0.2 EU/dL 0.1 - 1.0 05/17 STOOL Urobilinogen [place] URINE AND UA Turbidity Clear Clear 05/17 STOOL [place] (05/17/16 5:16 PM) URINE AND UA Blood Negative Negative 05/17 STOOL [place] (05/17/16 5:16 PM) URINE AND UA Glucose Negative Negative 05/17 STOOL mg/dL mg/dL [place] URINE AND UA Protein Negative Negative 05/17 STOOL mg/dL mg/dL [place] URINE AND UA pH 6.5 5.0 - 8.0 05/17 STOOL [place] URINE AND UA Spec Grav 1.020 <=1.030 05/17 STOOL [place] URINE AND UA Color Yellow Yellow 05/17 STOOL [place] *NA* (05/17/16 5:16 PM) URINE AND UA Sq Epi Rare /LPF Few /LPF 05/17 STOOL [place] URINE AND UA Bacteria Occasional None Seen 05/17 STOOL /HPF /HPF [place] URINE AND UA RBC 0-2 /HPF 0 - 2 05/17 STOOL [place] URINE AND UA WBC 0-2 /HPF None Seen 05/17 STOOL /HPF /2015 [place] CARDIAC Total CK 74 unit/L 12 - 191 05/17 ENZYMES [place] CARDIAC CK MB 0.8 ng/mL 0.5 - 3.6 05/17 ENZYMES [place] CARDIAC Troponin-I null 0.00 - 05/17 ENZYMES 0.40 [place] CARDIAC CK-MB INDEX 1.1 0.0 - 2.5 05/17 [place] CHEM PANEL eGFR 79 05/17 Result Comment: [...] is not recommended in the following populations: [place] 3m2 Individuals with unstable creatinine concentrations, including [...] Lvl 106 meq/L 95 - 109 05/17 [place] CHEM PANEL CO2 28 meq/L 24 - 32 05/17 [place] CHEM PANEL Calcium Lvl 8.8 mg/dL 8.5 - 10.5 05/17 [place] CHEM PANEL Bili Total 0.4 mg/dL 0.2 - 1.3 05/17 [place] CHEM PANEL AGAP 9.7 meq/L 10.0 - 05/17 20.0 [place] CHEM PANEL B/C Ratio 14 6 - 25 05/17 [place] CHEM PANEL ASPARTATE 14 unit/L 0 - 37 05/17 MH [place] CHEM PANEL Total 7.7 g/dL 6.4 - 8.4 05/17 [place] CHEM PANEL Globulin 4.4 g/dL 2.7 - 4.2 05/17 [place] CHEM PANEL A/G Ratio 0.8 0.7 - 1.6 11 [place] CHEM PANEL Glucose Lvl 148 mg/dL 70 - 99 05/17 [place] CHEM PANEL BUN 15 mg/dL 7 - 22 05/17 [place] CHEM PANEL Creatinine 1.11 mg/dL 0.50 - 05/17 MH Lvl 1.40 [place] CHEM PANEL Sodium Lvl 140 meq/L 135 - 145 05/17 [place] CHEM PANEL Potassium 3.7 meq/L 3.5 - 5.1 05/17 MH Lvl [place] CHEM PANEL Albumin Lvl 3.3 g/dL 3.5 - 5.0 05/17 [place] CHEM PANEL Alk Phos 129 unit/L 39 - 136 05/17 [place] CHEM PANEL ALANINE 30 unit/L 0 - 65 05/17 AMINOTRANS [place] RAS HEMATOLOGY MPV 7.3 fL 7.4 - 10.4 05/17 [place] HEMATOLOGY Platelet 281 K/CMM 133 - 450 05/17 [place] HEMATOLOGY RBC X 10x6 5.30 M/CMM 4.70 - 05/17 MH 6.10 [place] HEMATOLOGY WBC X 10x3 10.5 K/CMM 3.7 - 10.4 05/17 [place] HEMATOLOGY Hgb 12.4 g/dL 14.0 - 05/17 MH 18.0 [place] HEMATOLOGY Hct 36.8 % 42.0 - 05/17 MH 54.0 [place] HEMATOLOGY MCV 69.4 fL 80.0 - 05/17 MH 94.0 [place] HEMATOLOGY MCH 23.4 pg 27.0 - 05/17 MH 31.0 [place] HEMATOLOGY MCHC 33.7 g/dL 32.0 - 05/17 MH 36.0 /2015 [place] HEMATOLOGY RDW 17.1 % 11.5 - 05/17 MH 14.5 /2015 [place] HEMATOLOGY aPTT 35.4 s 22.9 - 05/17 35.8 /2015 [place] HEMATOLOGY PROTIME 13.1 s 12.0 - 05/17 MH 14.7 /2015 [place] HEMATOLOGY INR 0.97 0.85 - 05/17 MH 1.17 /2015 [place] HEMATOLOGY Eosinophils 1.1 % 0.0 - 4.0 05/17 [place] HEMATOLOGY Monocytes 6.7 % 2.0 - 12.0 05/17 [facility]EMAT[facility] Segs-Bands # 7.2 K/CMM 1.5 - 8.1 05/17 [facility]EMAT[facility] Basophils 1.1 % 0.0 - 1.0 05/17 [facility]EMAT[facility] Lymphocytes 2.4 K/CMM 1.0 - 5.5 05/17 # /2015 [facility]EMAT[facility] Monocytes # 0.7 K/CMM 0.0 - 0.8 05/17 [facility]EMAT[facility] Eosinophils 0.1 K/CMM 0.0 - 0.5 05/17 # /2015 [facility] HEMATOLOGY Microcyte 2+ None Seen 05/17 [facility] *ABN* (05/17/16 4:01 PM) HEMATOLOGY Basophils # 0.1 K/CMM 0.0 - 0.2 05/17 [facility]EMAT[facility] Lymphocytes 22.3 % 20.0 - 05/17 40.0 [facility] HEMATOLOG[facility] Segs 68.8 % 45.0 - 05/17 75.0 [facility] Chest 1view Chest 1view Portable chest: The cardiomediastinal silhouette and pulmonary vasculature are within normal limits. The lungs and pleural spaces are clear. There are no acute osseous abnormalities. There is no significant change compared to 05/05/2016. 05/17 - [facility] DX DX /2015 - [employer] IMPRESSION: Read by: Rizwan Barnhart MD Dictated Date/time: 05/17/16 16:37 Electronically Signed by: Rizwan Barnhart MD 05/17/16 16:38 FINAL REPORT No acute radiographic abnormality in the chest. [id number] CARDIAC Troponin-I null 0.00 - 05/06 ENZYMES 0.40 [place] HEMATOLOGY aPTT 50.1 s 22.9 - 05/06 MH 35.8 2016 [place] ELECTROLYTE AGAP 10.8 meq/L 10.0 - 05/06 S 20.0 [place] ELECTROLYTE CO2 28 meq/L 24 - 32 05/06 S [place] ELECTROLYTE Chloride Lvl 105 meq/L 95 - 109 05/06 S [place] ELECTROLYTE Calcium Lvl 8.7 mg/dL 8.5 - 10.5 05/06 S [place] ELECTROLYTE eGFR 103 05/06 Result Comment: The [...] is not recommended in the following populations: [address] Individuals with unstable creatinine concentrations, including [...] 123 mg/dL 70 - 99 05/06 S [place] ELECTROLYTE Creatinine 0.86 mg/dL 0.50 - 05/06 S Lvl 1.40 [place] ELECTROLYTE BUN 18 mg/dL 7 - 22 05/06 S [place] ELECTROLYTE Potassium 3.8 meq/L 3.5 - 5.1 05/06 S Lvl [place] ELECTROLYTE Sodium Lvl 140 meq/L 135 - 145 05/06 S [place] HEMATOLOGY Microcyte 2+ None Seen 05/06 [place] *ABN* (05/06/16 2:42 AM) HEMATOLOGY Eosinophils 0.2 K/CMM 0.0 - 0.5 05/06 # /2015 [place] HEMATOLOGY Monocytes # 0.8 K/CMM 0.0 - 0.8 05/06 [place] HEMATOLOGY Monocytes 7.9 % 2.0 - 12.0 05/06 [place] HEMATOLOGY Lymphocytes 2.5 K/CMM 1.0 - 5.5 05/06 MH # /2016 [place] HEMATOLOGY Segs-Bands # 6.5 K/CMM 1.5 - 8.1 05/06 [place] HEMATOLOGY Basophils 0.4 % 0.0 - 1.0 05/06 MH [place] HEMATOLOGY Eosinophils 1.7 % 0.0 - 4.0 05/06 /2015 [place] HEMATOLOGY Lymphocytes 24.8 % 20.0 - 05/06 MH 40.0 [place] HEMATOLOGY Segs 65.2 % 45.0 - 05/06 MH 75.0 [place] HEMATOLOGY RBC X 10x6 5.11 M/CMM 4.70 - 05/06 MH 6.10 [place] HEMATOLOGY Hct 36.2 % 42.0 - 05/06 MH 54.0 [place] HEMATOLOGY Hgb 11.8 g/dL 14.0 - 05/06 MH 18.0 [place] HEMATOLOGY Platelet 272 K/CMM 133 - 450 05/06 [place] HEMATOLOGY RDW 17.1 % 11.5 - 05/06 14. [place] HEMATOLOGY MPV 7.8 fL 7.4 - 10.4 05/06 /2015 [place] HEMATOLOGY WBC X 10x3 9.9 K/CMM 3.7 - 10.4 05/06 [place] HEMATOLOGY MCHC 32.5 g/dL 32.0 - 05/06 MH 36.0 [place] HEMATOLOGY MCH 23.0 pg 27.0 - 05/06 31.0 [place] HEMATOLOGY MCV 70.8 fL 80.0 - 05/06 94.0 [place] HEMATOLOGY PROTIME 13.4 s 12.0 - 05/06 14. [place] HEMATOLOGY INR 1.00 0.85 - 05/06 MH 1.17 [place] HEMATOLOGY aPTT 49.1 s 22.9 - 05/06 35.8 [place] URINE AND UA Bacteria None Seen None Seen 05/06 STOOL [place] (05/05/16 10:09 PM) URINE AND UA Blood Negative Negative 05/06 STOOL [place] (05/05/16 10:09 PM) URINE AND UA RBC 0-2 /HPF 0 - 2 05/06 [place] URINE AND UA WBC None Seen None Seen 05/06 STOOL [place] (05/05/16 10:09 PM) URINE AND UA Sq Epi None Seen Few 05/06 STOOL [place] (05/05/16 10:09 PM) URINE AND UA Leuk Est Negative Negative 05/06 STOOL [place] (05/05/16 10:09 PM) URINE AND UA 0.2 EU/dL 0.1 - 1.0 05/06 STOOL Urobilinogen [place] URINE AND UA Nitrite Negative Negative 05/06 STOOL [place] (05/05/16 10:09 PM) URINE AND UA Color Yellow Yellow 05/06 [place] *NA* (05/05/16 10:09 PM) URINE AND UA Glucose Negative Negative 05/06 STOOL [place] (05/05/16 10:09 PM) URINE AND UA Bili Negative Negative 05/06 [place] *NA* (05/05/16 10:09 PM) URINE AND UA Ketones Negative Negative 05/06 [place] *NA* (05/05/16 10:09 PM) URINE AND UA Protein Negative Negative 05/06 STOOL [place] (05/05/16 10:09 PM) URINE AND UA pH 6.0 5.0 - 8.0 05/06 [place] URINE AND UA Turbidity Clear Clear 05/06 [place] (05/05/16 10:09 PM) URINE AND UA Spec Grav >=1.030 <=1.030 05/06 [place] *ABN* (05/05/16 10:09 PM) BACTERIAL - MRSA by PCR Negative 05/06 SEROLOGY [place] (05/05/16 10:06 PM) HEMATOLOGY Basophils # 0.1 K/CMM 0.0 - 0.2 05/06 [place] HEMATOLOGY Microcyte 2+ None Seen 05/06 [place] *ABN* (05/05/16 9:38 PM) HEMATOLOGY Eosinophils 1.4 % 0.0 - 4.0 05/06 [place] HEMATOLOGY Basophils 0.7 % 0.0 - 1.0 05/06 [place] HEMATOLOGY Segs-Bands # 7.1 K/CMM 1.5 - 8.1 05/06 /2015 [place] HEMATOLOGY Lymphocytes 24.8 % 20.0 - 05/06 MH 40.0 /2015 [place] HEMATOLOGY Monocytes 7.9 % 2.0 - 12.0 05/06 /2015 [place] HEMATOLOGY Monocytes # 0.9 K/CMM 0.0 - 0.8 05/06 /2015 [place] HEMATOLOGY Eosinophils 0.2 K/CMM 0.0 - 0.5 05/06 MH # /2015 [place] HEMATOLOGY Lymphocytes 2.7 K/CMM 1.0 - 5.5 05/06 MH # /2015 [place] HEMATOLOGY Segs 65.2 % 45.0 - 05/06 MH 75.0 /2015 [place] HEMATOLOGY MCV 69.7 fL 80.0 - 05/06 MH 94.0 [place] HEMATOLOGY MCH 23.3 pg 27.0 - 05/06 MH 31.0 [place] HEMATOLOGY Hgb 12.2 g/dL 14.0 - 05/06 MH 18.0 [place] HEMATOLOGY Hct 36.5 % 42.0 - 05/06 MH 54.0 [place] HEMATOLOGY MCHC 33.4 g/dL 32.0 - 05/06 MH 36.0 [place] HEMATOLOGY Platelet 276 K/CMM 133 - 450 05/06 /2015 [place] HEMATOLOGY MPV 7.2 fL 7.4 - 10.4 05/06 /2015 [place] HEMATOLOGY RDW 17.5 % 11.5 - 05/06 MH 14. [place] HEMATOLOGY WBC X 10x3 11.0 K/CMM 3.7 - 10.4 05/06 [place] HEMATOLOGY RBC X 10x6 5.24 M/CMM 4.70 - 05/06 MH 6.10 [place] HEMATOLOGY INR 1.05 0.85 - 05/06 MH 1.17 [place] HEMATOLOGY PROTIME 13.9 s 12.0 - 05/06 14. [place] HEMATOLOGY aPTT 35.3 s 22.9 - 05/06 MH 35.8 [place] CARDIAC CK-MB INDEX 1.0 0.0 - 2.5 05/05 ENZYMES /2015 [place] CARDIAC CK MB 0.8 ng/mL 0.5 - 3.6 05/05 ENZYMES /2015 [place] CARDIAC Total CK 80 unit/L 12 - 191 05/05 ENZYMES [place] CARDIAC Troponin-I null 0.00 - 05/05 ENZYMES 0.40 [place] CHEM PANEL Alk Phos 133 unit/L 39 - 136 05/05 [place] CHEM PANEL Glucose Lvl 137 mg/dL 70 - 99 05/05 [place] CHEM PANEL BUN 17 mg/dL 7 - 22 05/05 [place] CHEM PANEL Creatinine 1.01 mg/dL 0.50 - 05/05 MH Lvl 1.40 [place] CHEM PANEL Sodium Lvl 139 meq/L 135 - 145 05/05 [place] CHEM PANEL ALANINE 34 unit/L 0 - 65 05/05 AMINOTRANSFE [place] RASE CHEM PANEL Albumin Lvl 3.3 g/dL 3.5 - 5.0 05/05 [place] CHEM PANEL Chloride Lvl 105 meq/L 95 - 109 05/05 [place] CHEM PANEL eGFR 88 05/05 Result Comment: [...] is not recommended in the following populations: [address] Individuals with unstable creatinine concentrations, including [...] Total 0.4 mg/dL 0.2 - 1.3 05/05 [place] CHEM PANEL Calcium Lvl 8.6 mg/dL 8.5 - 10.5 05/05 [place] CHEM PANEL Potassium 3.7 meq/L 3.5 - 5.1 05/05 Lvl [place] CHEM PANEL CO2 28 meq/L 24 - 32 05/05 [place] CHEM PANEL Total 7.8 g/dL 6.4 - 8.4 05/05 [place] CHEM PANEL ASPARTATE 16 unit/L 0 - 37 05/05 [place] CHEM PANEL AGAP 9.7 meq/L 10.0 - 05/05 MH 20.0 [place] CHEM PANEL B/C Ratio 17 6 - 25 05/05 [place] CHEM PANEL Globulin 4.5 g/dL 2.7 - 4.2 05/05 [place] CHEM PANEL A/G Ratio 0.7 0.7 - 1.6 05/05 [place] HEMATOLOGY Monocytes # 0.8 K/CMM 0.0 - 0.8 05/05 [place] HEMATOLOGY Eosinophils 0.1 K/CMM 0.0 - 0.5 05/05 # [place] HEMATOLOGY Basophils # 0.1 K/CMM 0.0 - 0.2 05/05 [place] HEMATOLOGY Microcyte 2+ None Seen 05/05 [place] *ABN* (05/05/16 5:11 PM) HEMATOLOGY Monocytes 7.5 % 2.0 - 12.0 05/05 [place] HEMATOLOGY Eosinophils 1.1 % 0.0 - 4.0 05/05 [place] HEMATOLOGY Basophils 0.7 % 0.0 - 1.0 05/05 [place] HEMATOLOGY Segs-Bands # 7.5 K/CMM 1.5 - 8.1 05/05 [place] HEMATOLOGY Lymphocytes 2.1 K/CMM 1.0 - 5.5 05/05 [place] HEMATOLOGY Lymphocytes 19.9 % 20.0 - 05/05 MH 40.0 [place] HEMATOLOGY Segs 70.8 % 45.0 - 05/05 MH 75.0 [place] HEMATOLOGY Platelet 306 K/CMM 133 - 450 05/05 [place] HEMATOLOGY MCHC 33.6 g/dL 32.0 - 05/05 MH 36.0 [place] HEMATOLOGY MPV 7.3 fL 7.4 - 10.4 05/05 [place] HEMATOLOGY RDW 16.9 % 11.5 - 05/05 MH 14. 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 Electronically Signed by: Tito Farnsworth MD 05/05/16 17:34 FINAL REPORT IMPRESSION: Stable mildly enlarged cardiac silhouette. Atherosclerotic thoracic aorta. No focal consolidation, significant pleural effusion or pneumothorax. SL: [id number] CHEM PANEL Globulin 4.2 g/dL 2.7 - 4.2 04/25 [place] CHEM PANEL B/C Ratio 19 6 - 25 04/25 [place] CHEM PANEL AGAP 9.9 meq/L 10.0 - 04/25 20.0 [place] CHEM PANEL A/G Ratio 0.8 0.7 - 1.6 04/25 [place] CHEM PANEL eGFR 100 04/25 Result Comment: [...] is not recommended in the following populations: [address] Individuals with unstable creatinine concentrations, including [...] Phos 128 unit/L 39 - 136 04/25 [place] CHEM PANEL Albumin Lvl 3.4 g/dL 3.5 - 5.0 04/25 [place] CHEM PANEL ALANINE 30 unit/L 0 - 65 04/25 AMINOTRANSFE [place] RASE CHEM PANEL Total 7.6 g/dL 6.4 - 8.4 04/25 Protein [place] CHEM PANEL Bili Total 0.3 mg/dL 0.2 - 1.3 04/25 [place] CHEM PANEL ASPARTATE 14 unit/L 0 - 37 04/25 TRANSAMINASE [place] CHEM PANEL CO2 26 meq/L 24 - 32 04/25 [place] CHEM PANEL Calcium Lvl 8.7 mg/dL 8.5 - 10.5 04/25 [place] CHEM PANEL Chloride Lvl 104 meq/L 95 - 109 04/25 [place] CHEM PANEL Potassium 3.9 meq/L 3.5 - 5.1 04/25 MH Lvl /2015 [place] CHEM PANEL Glucose Lvl 221 mg/dL 70 - 99 04/25 [place] CHEM PANEL Sodium Lvl 136 meq/L 135 - 145 04/25 [place] CHEM PANEL Creatinine 0.91 mg/dL 0.50 - 04/25 MH Lvl 1.40 [place] CHEM PANEL BUN 17 mg/dL 7 - 22 04/25 [place] HEMATOLOGY RBC X 10x6 5.40 M/CMM 4.70 - 04/25 MH 6.10 [place] HEMATOLOGY WBC X 10x3 10.3 K/CMM 3.7 - 10.4 04/25 [place] HEMATOLOGY Hgb 12.9 g/dL 14.0 - 04/25 MH 18.0 [place] HEMATOLOGY MPV 7.2 fL 7.4 - 10.4 04/25 [place] HEMATOLOGY RDW 16.8 % 11.5 - 04/25 MH 14. [place] HEMATOLOGY Platelet 313 K/CMM 133 - 450 04/25 [place] HEMATOLOGY MCH 23.8 pg 27.0 - 04/25 MH 31.0 [place] HEMATOLOGY MCHC 34.0 g/dL 32.0 - 04/25 36.0 /2015 [place] HEMATOLOGY Hct 37.9 % 42.0 - 04/25 MH 54.0 /2015 [place] HEMATOLOGY MCV 70.1 fL 80.0 - 04/25 94.0 /2015 [place] HEMATOLOGY Lymphocytes 2.3 K/CMM 1.0 - 5.5 04/25 MH # /2016 [place] HEMATOLOGY Eosinophils 0.1 K/CMM 0.0 - 0.5 04/25 # /2015 [place] HEMATOLOGY Monocytes # 0.6 K/CMM 0.0 - 0.8 04/25 [place] HEMATOLOGY Basophils # 0.1 K/CMM 0.0 - 0.2 04/25 [place] HEMATOLOGY Microcyte 2+ None Seen 04/25 [place] *ABN* (04/25/16 6:17 PM) HEMATOLOGY Segs 69.2 % 45.0 - 04/25 MH 75.0 /2015 [place] HEMATOLOGY Segs-Bands # 7.1 K/CMM 1.5 - 8.1 04/25 [place] HEMATOLOGY Monocytes 6.1 % 2.0 - 12.0 04/25 [place] HEMATOLOGY Basophils 1.1 % 0.0 - 1.0 04/25 [place] HEMATOLOGY Eosinophils 1.1 % 0.0 - 4.0 04/25 [place] HEMATOLOGY Lymphocytes 22.5 % 20.0 - 04/25 40.0 /2016 [place] URINE AND UA WBC 0-2 /HPF None Seen 04/25 STOOL /HPF [place] URINE AND UA RBC 0-2 /HPF 0 - 2 04/25 STOOL [place] URINE AND UA Bacteria Occasional None Seen 04/25 STOOL /HPF /HPF [place] URINE AND UA Leuk Est Negative Negative 04/25 STOOL [place] (04/25/16 6:17 PM) URINE AND UA Sq Epi Occasional Few /LPF 04/25 STOOL /LPF /2015 [place] URINE AND UA pH 6.0 5.0 - 8.0 04/25 [place] URINE AND UA Protein Negative Negative 04/25 STOOL [place] (04/25/16 6:17 PM) URINE AND UA Glucose 250 mg/dL Negative 04/25 STOOL mg/dL /2015 [place] URINE AND UA Ketones Negative Negative 04/25 STOOL [place] *NA* (04/25/16 6:17 PM) URINE AND UA Bili Negative Negative 04/25 [place] *NA* (04/25/16 6:17 PM) URINE AND UA Blood Negative Negative 04/25 [place] (04/25/16 6:17 PM) URINE AND UA 0.2 EU/dL 0.1 - 1.0 04/25 [facility] Urobilinogen [place] URINE AND UA Nitrite Negative Negative 04/25 STOOL [place] (04/25/16 6:17 PM) URINE AND UA Color Yellow Yellow 04/25 [place] *NA* (04/25/16 6:17 PM) URINE AND UA Turbidity Clear Clear 04/25 [place] (04/25/16 6:17 PM) URINE AND UA Spec Grav 1.020 <=1.030 04/25 [facility] [place] Renal Stone Renal Stone EXAM: CT ABDOMEN AND PELVIS WITHOUT CONTRAST [facility] CT [facility] DATE: 04/25/2016 6:07 PM CDT Read by: [...] provided. IV contrast: None. CT Radiation Dose: NLC=9622.51 mGy-cm FINDINGS: Evaluation of the solid organs [...] infrarenal abdominal aorta without aneurysmal dilatation. SL: [id number] CARDIAC Troponin-I null 0.00 - 03/05 MH ENZYMES 0.40 /2015 [place] CARDIAC CK MB 0.8 ng/mL 0.5 - 3.6 03/05 MH ENZYMES /2016 [place] CARDIAC Total CK 60 unit/L - 191 03/05 MH ENZYMES /2016 [place] CARDIAC CK-MB INDEX 1.3 0.0 - 2.5 03/05 MH ENZYMES /2016 [place] CARDIAC Troponin-I null 0.00 - 03/05 MH ENZYMES 0.40 2016 [place] CARDIAC Total CK 66 unit/L - 191 03/05 MH ENZYMES /2016 [place] CARDIAC CK MB 0.6 ng/mL 0.5 - 3.6 03/05 MH ENZYMES /2016 [place] CARDIAC CK-MB INDEX 0.9 0.0 - 2.5 03/05 MH ENZYMES /2016 [place] CHEM PANEL eGFR 103 03/05 Result Comment: [...] is not recommended in the following populations: [address] Individuals with unstable creatinine concentrations, including [...] 12.0 meq/L 10.0 - 09 MH 20.0 [place] CHEM PANEL Globulin 4.4 g/dL 2.7 - 4.2 03/05 [place] CHEM PANEL B/C Ratio 14 6 - 25 03/05 [place] CHEM PANEL A/G Ratio 0.8 0.7 - 1.6 03/05 [place] CHEM PANEL Calcium Lvl 8.8 mg/dL 8.5 - 10.5 03/05 [place] CHEM PANEL Bili Total 0.6 mg/dL 0.2 - 1.3 03/05 [place] CHEM PANEL Total 7.8 g/dL 6.4 - 8.4 03/05 Protein [place] CHEM PANEL ASPARTATE 16 unit/L 0 - 37 03/05 [place] CHEM PANEL Alk Phos 128 unit/L 39 - 136 03/05 [place] CHEM PANEL Glucose Lvl 97 mg/dL 70 - 99 03/05 [place] CHEM PANEL Creatinine 0.88 mg/dL 0.50 - 03/05 MH Lvl 1.40 [place] CHEM PANEL BUN 12 mg/dL 7 - 22 03/05 [place] CHEM PANEL Sodium Lvl 138 meq/L 135 - 145 03/05 [place] CHEM PANEL ALANINE 32 unit/L 0 - 65 03/05 AMINOTRANS [place] RASE CHEM PANEL Albumin Lvl 3.4 g/dL 3.5 - 5.0 03/05 [place] CHEM PANEL Potassium 4.0 meq/L 3.5 - 5.1 03/05 MH Lvl [place] CHEM PANEL Chloride Lvl 105 meq/L 95 - 109 03/05 [place] CHEM PANEL CO2 25 meq/L 24 - 32 03/05 [place] HEMATOLOGY Platelet 294 K/CMM 133 - 450 03/05 [place] HEMATOLOGY MPV 7.4 fL 7.4 - 10.4 03/05 [place] HEMATOLOGY WBC X 10x3 10.0 K/CMM 3.7 - 10.4 03/05 [place] HEMATOLOGY RDW 16.6 % 11.5 - 03/05 MH 14.5 [place] HEMATOLOGY MCH 24.1 pg 27.0 - 03/05 MH 31.0 [place] HEMATOLOGY MCHC 33.4 g/dL 32.0 - 03/05 MH 36.0 [place] HEMATOLOGY MCV 72.2 fL 80.0 - 03/05 MH 94.0 [place] HEMATOLOGY Hct 38.1 % 42.0 - 03/05 MH 54.0 [place] HEMATOLOGY RBC X 10x6 5.28 M/CMM 4.70 - 03/05 MH 6.10 [place] HEMATOLOGY Hgb 12.7 g/dL 14.0 - 03/05 MH 18.0 [place] HEMATOLOGY Microcyte 1+ None Seen 03/05 [place] *ABN* (03/05/16 7:30 AM) HEMATOLOGY Basophils # 0.1 K/CMM 0.0 - 0.2 03/05 [place] HEMATOLOGY Monocytes # 0.7 K/CMM 0.0 - 0.8 03/05 [place] HEMATOLOGY Eosinophils 0.1 K/CMM 0.0 - 0.5 03/05 MH # /2015 [place] HEMATOLOGY Segs-Bands # 7.5 K/CMM 1.5 - 8.1 03/05 [place] HEMATOLOGY Lymphocytes 1.6 K/CMM 1.0 - 5.5 03/05 # /2015 [place] HEMATOLOGY Eosinophils 1.2 % 0.0 - 4.0 03/05 [place] HEMATOLOGY Basophils 0.6 % 0.0 - 1.0 03/05 [place] HEMATOLOGY Segs 75.1 % 45.0 - 03/05 MH 75.0 [place] HEMATOLOGY Monocytes 7.4 % 2.0 - 12.0 03/05 [place] HEMATOLOGY Lymphocytes 15.7 % 20.0 - 03/05 40.0 [place] Chest 1view Chest 1view Patient Name: ANNABEL MCCONNELL 03/05 - [facility] /[facility] - [employer] : 1970; Age: 45 years y/o Male MR: [id number] Read by: Jason Dozier MD Dictated Date/time: [...] unremarkable. IMPRESSION: 1. No active disease. SL: [id number] URINE AND UA RBC 0-2 /HPF 0 - 2 03/02 [place] URINE AND UA Sq Epi None Seen Few 03/02 [place] (03/02/16 8:22 AM) URINE AND UA WBC None Seen None Seen 03/02 [place] (03/02/16 8:22 AM) URINE AND UA pH 6.0 5.0 - 8.0 03/02 [place] URINE AND UA Protein Negative Negative 03/02 STOOL mg/dL mg/dL [place] URINE AND UA Glucose Negative Negative 03/02 STOOL mg/dL mg/dL [place] URINE AND UA Ketones Negative Negative 03/02 STO[facility] mg/dL mg/dL [place] URINE AND UA Bili Negative Negative 03/02 [place] *NA* (03/02/16 8:22 AM) URINE AND UA Color Yellow Yellow 03/02 [place] *NA* (03/02/16 8:22 AM) URINE AND UA Turbidity Clear Clear 03/02 [place] (03/02/16 8:22 AM) URINE AND UA Spec Grav 1.015 <=1.030 03/02 [place] URINE AND UA Blood Negative Negative 03/02 [place] (03/02/16 8:22 AM) URINE AND UA 0.2 EU/dL 0.1 - 1.0 03/02 STOOL Urobilinogen [place] URINE AND UA Nitrite Negative Negative 03/02 [place] (03/02/16 8:22 AM) URINE AND UA Leuk Est Negative Negative 03/02 STOOL [place] (03/02/16 8:22 AM) CHEM PANEL A/G Ratio 0.7 0.7 - 1.6 03/02 [place] CHEM PANEL Globulin 4.6 g/dL 2.7 - 4.2 03/02 [place] CHEM PANEL B/C Ratio 16 6 - 25 03/02 [place] CHEM PANEL AGAP 10.4 meq/L 10.0 - 03/02 MH 20.0 [place] CHEM PANEL Total 8.0 g/dL 6.4 - 8.4 03/02 Protein [place] CHEM PANEL Bili Total 0.3 mg/dL 0.2 - 1.3 03/02 [place] CHEM PANEL Calcium Lvl 8.7 mg/dL 8.5 - 10.5 03/02 [place] CHEM PANEL CO2 26 meq/L 24 - 32 03/02 [place] CHEM PANEL Chloride Lvl 106 meq/L 95 - 109 03/02 [place] CHEM PANEL Sodium Lvl 138 meq/L 135 - 145 03/02 [place] CHEM PANEL Potassium 4.4 meq/L 3.5 - 5.1 03/02 Lv [place] CHEM PANEL eGFR 83 03/02 Result Comment: [...] is not recommended in the following populations: [place] 3m2 Individuals with unstable creatinine concentrations, including [...] ASPARTATE 13 unit/L 0 - 37 03/02 [place] CHEM PANEL Creatinine 1.07 mg/dL 0.50 - 03/02 MH Lvl 1.40 /2015 [place] CHEM PANEL BUN 17 mg/dL 7 - 22 03/02 [place] CHEM PANEL Glucose Lvl 106 mg/dL 70 - 99 03/02 [place] CHEM PANEL Alk Phos 127 unit/L 39 - 136 03/02 [place] CHEM PANEL Albumin Lvl 3.4 g/dL 3.5 - 5.0 03/02 [place] CHEM PANEL ALANINE 33 unit/L 0 - 65 03/02 AMINOTRANSFE /2015 [place] RASE CHEM PANEL Lipase Lvl 164 unit/L 73 - 393 03/02 [place] HEMATOLOGY Basophils # 0.1 K/CMM 0.0 - 0.2 03/02 [place] HEMATOLOGY Microcyte 1+ None Seen 03/02 [place] *ABN* (03/02/16 5:41 AM) HEMATOLOGY Monocytes 6.7 % 2.0 - 12.0 03/02 [place] HEMATOLOGY Lymphocytes 21.9 % 20.0 - 03/02 MH 40.0 [place] HEMATOLOGY Eosinophils 1.5 % 0.0 - 4.0 03/02 [place] HEMATOLOGY Segs 69.1 % 45.0 - 03/02 75.0 [place] HEMATOLOGY Monocytes # 0.8 K/CMM 0.0 - 0.8 03/02 [place] HEMATOLOGY Lymphocytes 2.6 K/CMM 1.0 - 5.5 03/02 MH # [place] HEMATOLOGY Eosinophils 0.2 K/CMM 0.0 - 0.5 03/02 MH [place] HEMATOLOGY Segs-Bands # 8.1 K/CMM 1.5 - 8.1 03/02 [place] HEMATOLOGY Basophils 0.8 % 0.0 - 1.0 03/02 [place] HEMATOLOGY WBC X 10x3 11.8 K/CMM 3.7 - 10.4 03/02 [place] HEMATOLOGY Hct 37.4 % 42.0 - 03/02 MH 54.0 [place] HEMATOLOGY RBC X 10x6 5.18 M/CMM 4.70 - 03/02 MH 6.10 [place] HEMATOLOGY Hgb 12.5 g/dL 14.0 - 03/02 MH 18.0 /2015 [place] HEMATOLOGY MCH 24.1 pg 27.0 - 03/02 MH 31.0 /2015 [place] HEMATOLOGY RDW 16.7 % 11.5 - 03/02 MH 14.5 /2015 [place] HEMATOLOGY MCHC 33.4 g/dL 32.0 - 03/02 MH 36.0 /2015 [place] HEMATOLOGY MCV 72.1 fL 80.0 - 03/02 94.0 /2015 [place] HEMATOLOGY MPV 7.7 fL 7.4 - 10.4 03/02 [place] HEMATOLOGY Platelet 303 K/CMM 133 - 450 03/02 [place] Chest/Abdom Chest/Abdome CT THORAX/ABDOMEN/PELVIS WITH IV CONTRAST WITH SAGITTAL AND CORONAL REFORMATTED IMAGES 03/02 - [facility] en/Pelvis w n/Pelvis w - [employer] IV contrast IV contrast CT CT HISTORY: [...] colonic diverticulosis, small abdominal aortic aneurysm. SL: [id number] Abdomen RUQ Abdomen RUQ ULTRASOUND ABDOMEN RIGHT UPPER QUADRANT 03/02 - [facility] US US /2015 - [employer] HISTORY: Abdominal pain, acute; right flank pain [...] steatosis. 2. Otherwise normal abdominal ultrasound. SL: [id number] Renal Stone Renal Stone Patient Name: ANNABEL MCCONNELL 03/02 [facility] CT CT /2015 [facility] : 1970; Age: 45 years y/o Male MR: [id number] Read by: John Paul Carrero MD Dictated Date/time: 03/02/16 05:55 Electronically Signed by: John Paul Carrero MD 03/02/16 05:59 FINAL REPORT Study: Renal Stone CT 03/02/2016 5:25 AM CDT Ordering Physician: Clinical Indication: Abdominal pain, acute; Comparison: None TECHNIQUE: Noncontrasted helical imaging was performed from the kidneys through the symphysis as a renal stone protocol. Multiplanar reformations are available. CT Radiation Dose: PDE=[id number] mGy-cm FINDINGS: This examination is limited for [...] - 5.1 02/18 MH S Lvl /2015 [place] ELECTROLYTE Chloride Lvl 104 meq/L 95 - 109 02/18 S [place] ELECTROLYTE Sodium Lvl 136 meq/L 135 - 145 02/18 MH S /2015 [place] ELECTROLYTE Glucose Lvl 147 mg/dL 70 - 99 02/18 MH S [place] ELECTROLYTE Creatinine 0.88 mg/dL 0.50 - 02/18 MH S Lvl 1.40 [place] ELECTROLYTE BUN 10 mg/dL 7 - 22 02/18 MH S /2015 [place] ELECTROLYTE eGFR 103 02/18 Result Comment: The [...] is not recommended in the following populations: [place] 3m2 Individuals with unstable creatinine concentrations, including [...] 8.5 - 10.5 02/18 MH S /2015 [place] ELECTROLYTE CO2 24 meq/L 24 - 32 02/18 MH S /2015 [place] ELECTROLYTE AGAP 12.4 meq/L 10.0 - 02/18 MH S 20.0 [place] HEMATOLOGY RDW 16.3 % 11.5 - 02/18 MH 14. [place] HEMATOLOGY Platelet 273 K/CMM 133 - 450 02/18 [place] HEMATOLOGY MPV 7.5 fL 7.4 - 10.4 02/18 [place] HEMATOLOGY Hgb 12.8 g/dL 14.0 - 02/18 MH 18.0 [place] HEMATOLOGY RBC X 10x6 5.31 M/CMM 4.70 - 02/18 MH 6.10 [place] HEMATOLOGY WBC X 10x3 11.1 K/CMM 3.7 - 10.4 02/18 [place] HEMATOLOGY MCV 72.6 fL 80.0 - 02/18 MH 94.0 [place] HEMATOLOGY Hct 38.6 % 42.0 - 02/18 MH 54.0 [place] HEMATOLOGY MCH 24.1 pg 27.0 - 02/18 MH 31.0 [place] HEMATOLOGY MCHC 33.1 g/dL 32.0 - 02/18 MH 36.0 [place] CARDIAC Troponin-I null 0.00 - 02/17 MH ENZYMES 0.40 [place] HEMATOLOGY Monocytes 7.9 % 2.0 - 12.0 02/17 [place] HEMATOLOGY Lymphocytes 20.8 % 20.0 - 02/17 MH 40.0 [place] HEMATOLOGY Segs 69.1 % 45.0 - 02/17 MH 75.0 [place] HEMATOLOGY Lymphocytes 2.2 K/CMM 1.0 - 5.5 02/17 MH /2015 [place] HEMATOLOGY Monocytes # 0.8 K/CMM 0.0 - 0.8 02/17 [place] HEMATOLOGY Eosinophils 1.6 % 0.0 - 4.0 02/17 [place] HEMATOLOGY Segs-Bands # 7.5 K/CMM 1.5 - 8.1 02/17 [place] HEMATOLOGY Basophils 0.6 % 0.0 - 1.0 02/17 [place] HEMATOLOGY Microcyte 1+ None Seen 02/17 [place] *ABN* (02/18/16 5:20 AM) HEMATOLOGY Basophils # 0.1 K/CMM 0.0 - 0.2 02/17 [place] HEMATOLOGY Eosinophils 0.2 K/CMM 0.0 - 0.5 02/17 MH # /2015 [place] HEMATOLOGY RBC X 10x6 4.91 M/CMM 4.70 - 02/17 MH 6.10 [place] HEMATOLOGY WBC X 10x3 10.8 K/CMM 3.7 - 10.4 02/17 [place] HEMATOLOGY MCH 24.1 pg 27.0 - 02/17 MH 31.0 [place] HEMATOLOGY MCV 73.1 fL 80.0 - 02/17 MH 94.0 [place] HEMATOLOGY Hct 35.9 % 42.0 - 02/17 MH 54.0 [place] HEMATOLOGY Hgb 11.8 g/dL 14.0 - 02/17 MH 18.0 [place] HEMATOLOGY MPV 7.4 fL 7.4 - 10.4 02/17 [place] HEMATOLOGY RDW 16.3 % 11.5 - 02/17 14.5 [place] HEMATOLOGY MCHC 33.0 g/dL 32.0 - 02/17 MH 36.0 [place] HEMATOLOGY Platelet 270 K/CMM 133 - 450 02/17 [place] CARDIAC Troponin-I null 0.00 - 02/16 ENZYMES 0. [place] CHEM PANEL Procalcitoni null 0.00 - 02/16 n Lvl 0.10 [place] CARDIAC Troponin-I null 0.00 - 02/16 ENZYMES 0.40 [place] URINE AND UA Bacteria None Seen None Seen 02/16 STOOL /2015 [place] (02/17/16 6:27 AM) URINE AND UA RBC None Seen 0 - 2 02/16 STOOL /2015 [place] (02/17/16 6:27 AM) URINE AND UA Mucus Few /LPF None Seen 02/16 STOOL /LPF /2015 [place] URINE AND UA Sq Epi Rare /LPF Few /LPF 02/16 STOOL [place] URINE AND UA WBC 0-2 /HPF None Seen 02/16 STOOL /HPF /2015 [place] URINE AND UA Leuk Est Negative Negative 02/16 STOOL /2015 [place] (02/17/16 6:27 AM) URINE AND UA 0.2 EU/dL 0.1 - 1.0 02/16 STOOL Urobilinogen [place] URINE AND UA Nitrite Negative Negative 02/16 STOOL [place] (02/17/16 6:27 AM) URINE AND UA Spec Grav 1.025 <=1.030 02/16 STOOL [place] URINE AND UA Turbidity Clear Clear 02/16 STOOL [place] (02/17/16 6:27 AM) URINE AND UA Color Yellow Yellow 02/16 STOOL [place] *NA* (02/17/16 6:27 AM) URINE AND UA Bili Negative Negative 02/16 STOOL [place] *NA* (02/17/16 6:27 AM) URINE AND UA Blood Negative Negative 02/16 STOOL [place] (02/17/16 6:27 AM) URINE AND UA Ketones Negative Negative 02/16 STOOL mg/dL mg/dL [place] URINE AND UA Glucose Negative Negative 02/16 STOOL mg/dL mg/dL [place] URINE AND UA pH 6.0 5.0 - 8.0 02/16 STOOL [place] URINE AND UA Protein Negative Negative 02/16 STOOL mg/dL mg/dL [place] CARDIAC CK-MB INDEX 1.6 0.0 - 2.5 02/16 ENZYMES [place] CARDIAC CK MB 0.9 ng/mL 0.5 - 3.6 02/16 ENZYMES [place] CARDIAC Total CK 58 unit/L 12 - 191 02/16 ENZYMES [place] CHEM PANEL eGFR 93 02/16 Result Comment: [...] is not recommended in the following populations: [place] 3m2 Individuals with unstable creatinine concentrations, including [...] 33 unit/L 0 - 65 02/16 AMINOTRANS [place] RASE CHEM PANEL CO2 23 meq/L 24 - 32 02/16 [place] CHEM PANEL Calcium Lvl 8.8 mg/dL 8.5 - 10.5 02/16 [place] CHEM PANEL Potassium 4.0 meq/L 3.5 - 5.1 02/16 MH Lvl [place] CHEM PANEL Chloride Lvl 105 meq/L 95 - 109 02/16 [place] CHEM PANEL Creatinine 0.97 mg/dL 0.50 - 02/16 MH Lvl 1.40 [place] CHEM PANEL Glucose Lvl 103 mg/dL 70 - 99 02/16 [place] CHEM PANEL BUN 11 mg/dL 7 - 22 02/16 [place] CHEM PANEL Albumin Lvl 3.4 g/dL 3.5 - 5.0 02/16 [place] CHEM PANEL Alk Phos 128 unit/L 39 - 136 02/16 [place] CHEM PANEL Bili Total 0.5 mg/dL 0.2 - 1.3 02/16 [place] CHEM PANEL Sodium Lvl 139 meq/L 135 - 145 02/16 [place] CHEM PANEL AGAP 15.0 meq/L 10.0 - 02/16 MH 20.0 [place] CHEM PANEL B/C Ratio 11 6 - 25 02/16 [place] CHEM PANEL Total 8.0 g/dL 6.4 - 8.4 02/16 [place] CHEM PANEL ASPARTATE 16 unit/L 0 - 37 02/16 [place] CHEM PANEL Globulin 4.6 g/dL 2.7 - 4.2 02/16 [place] CHEM PANEL A/G Ratio 0.7 0.7 - 1.6 02/16 [place] HEMATOLOGY Microcyte 1+ None Seen 02/16 [place] *ABN* (02/17/16 5:50 AM) HEMATOLOGY Basophils # 0.1 K/CMM 0.0 - 0.2 02/16 [place] HEMATOLOGY Basophils 0.5 % 0.0 - 1.0 02/16 [place] HEMATOLOGY Lymphocytes 2.4 K/CMM 1.0 - 5.5 02/16 MH # /2015 [place] HEMATOLOGY Monocytes # 0.8 K/CMM 0.0 - 0.8 02/16 [place] HEMATOLOGY Eosinophils 0.1 K/CMM 0.0 - 0.5 02/16 MH # /2015 [place] HEMATOLOGY Segs-Bands # 8.7 K/CMM 1.5 - 8.1 02/16 [place] HEMATOLOGY Eosinophils 1.2 % 0.0 - 4.0 02/16 [place] HEMATOLOGY Segs 72.1 % 45.0 - 02/16 MH 75.0 [place] HEMATOLOGY Lymphocytes 19.8 % 20.0 - 02/16 MH 40.0 [place] HEMATOLOGY Monocytes 6.4 % 2.0 - 12.0 02/16 [place] HEMATOLOGY Platelet 327 K/CMM 133 - 450 02/16 [place] HEMATOLOGY MCH 24.1 pg 27.0 - 02/16 31.0 [place] HEMATOLOGY MCHC 33.3 g/dL 32.0 - 02/16 36.0 [place] HEMATOLOGY MPV 7.6 fL 7.4 - 10.4 02/16 [place] HEMATOLOGY RDW 16.3 % 11.5 - 02/16 14.5 [place] HEMATOLOGY Hgb 13.1 g/dL 14.0 - 02/16 18.0 [place] HEMATOLOGY Hct 39.5 % 42.0 - 02/16 54.0 [place] HEMATOLOGY WBC X 10x3 12.0 K/CMM 3.7 - 10.4 02/16 [place] HEMATOLOGY RBC X 10x6 5.45 M/CMM 4.70 - 02/16 MH 6.10 [place] HEMATOLOGY MCV 72.6 fL 80.0 - 02/16 94.0 [place] Renal Stone Renal Stone Patient Name: ANNABEL MCCONNELL 02/16 [facility] [place] : 1970; Age: 45 years Male MR: [id number] Read by: Sundar Jeffrey MD Dictated Date/time: 02/17/16 05:53 Electronically Signed by: Sundar Jeffrey MD 02/17/16 06:01 FINAL REPORT Study: Renal Stone CT 02/17/2016 5:26 AM CDT Clinical Indication: Flank Pain. KS. STATED RT. FLANK PAIN AND UPPER CHEST [...] small left renal cyst. 7. Cardiomegaly. SL: [id number] Chest 1view Chest 1view Patient Name: ANNABEL MCCONNELL 02/16 [facility] DX DX [place] : 1970; Age: 45 years y/o Male MR: [id number] Read by: Jaun Guillermo MD Dictated Date/time: [...] Date Comments Source Respitory Rate 18 05/17/2016 [facility] Temperature Oral (F) 98.1 F 05/17/2016 [facility] Heart Rate 72 05/17/2016 [facility] Systolic (mm Hg) 116 05/17/2016 [facility] Diastolic (mm Hg) 76 05/17/2016 [facility] Weight 128.636 05/17/2016 [facility] Temperature Oral (F) 97.6 F 05/17/2016 [facility] Respitory Rate 16 05/17/2016 [facility] Heart Rate 79 05/17/2016 [facility] Systolic (mm Hg) 100 05/17/2016 [facility] Diastolic (mm Hg) 69 05/17/2016 [facility] Respitory Rate 16 05/06/2016 [facility] Systolic (mm Hg) 134 05/06/2016 [facility] Diastolic (mm Hg) 84 05/06/2016 [facility] Heart Rate 61 05/06/2016 [facility] Temperature Oral (F) 97.9 F 05/06/2016 [facility] Respitory Rate 14 05/06/2016 [facility] Temperature Oral (F) 97.4 F 05/06/2016 [facility] Systolic (mm Hg) 117 05/06/2016 [facility] Diastolic (mm Hg) 77 05/06/2016 [facility] Respitory Rate 18 05/06/2016 [facility] Heart Rate 56 05/06/2016 [facility] Systolic (mm Hg) 120 05/06/2016 [facility] Diastolic (mm Hg) 77 05/06/2016 [facility] Heart Rate 62 05/06/2016 [facility] Temperature Oral (F) 97.9 F 05/06/2016 [facility] Weight 131.7 05/06/2016 [facility] BMI Calculated 41.66 05/06/2016 [facility] Height 177.8 cm 05/06/2016 [facility] Weight 127.273 05/05/2016 [facility] Systolic (mm Hg) 118 04/26/2016 [facility] Diastolic (mm Hg) 64 04/26/2016 [facility] Respitory Rate 18 04/26/2016 [facility] Heart Rate 78 04/26/2016 [facility] Temperature Oral (F) 97.4 F 04/26/2016 [facility] Weight 128.182 04/25/2016 [facility] BMI Calculated 40.55 04/25/2016 [facility] Height 177.8 cm 04/25/2016 [facility] Respitory Rate 18 04/25/2016 [facility] Temperature Oral (F) 97.2 F 04/25/2016 [facility] Heart Rate 80 04/25/2016 [facility] Systolic (mm Hg) 137 04/25/2016 [facility] Diastolic (mm Hg) 85 04/25/2016 [facility] Temperature Oral (F) 98.7 F 03/05/2016 [facility] Respitory Rate 16 03/05/2016 [facility] Systolic (mm Hg) 127 03/05/2016 [facility] Diastolic (mm Hg) 68 03/05/2016 [facility] Respitory Rate 16 03/05/2016 [facility] Systolic (mm Hg) 124 03/05/2016 [facility] Diastolic (mm Hg) 76 03/05/2016 [facility] Systolic (mm Hg) 127 03/05/2016 [facility] Diastolic (mm Hg) 77 03/05/2016 [facility] Height 177.8 cm 03/05/2016 [facility] BMI Calculated 40.83 03/05/2016 [facility] Weight 129.091 03/05/2016 [facility] Heart Rate 62 03/05/2016 [facility] Temperature Oral (F) 98.9 F 03/05/2016 [facility] Respitory Rate 18 03/05/2016 [facility] Temperature Oral (F) 98.2 F 03/02/2016 [facility] Heart Rate 58 03/02/2016 [facility] Respitory Rate 16 03/02/2016 [facility] Systolic (mm Hg) 120 03/02/2016 [facility] Diastolic (mm Hg) 66 03/02/2016 [facility] Heart Rate 50 03/02/2016 [facility] Weight 128.636 03/02/2016 [facility] Temperature Oral (F) 98.0 F 03/02/2016 [facility] Respitory Rate 18 03/02/2016 [facility] Systolic (mm Hg) 149 03/02/2016 [facility] Diastolic (mm Hg) 87 03/02/2016 [facility] Heart Rate 69 03/02/2016 [facility] Systolic (mm Hg) 107 02/20/2016 [facility] Diastolic (mm Hg) 66 02/20/2016 [facility] Temperature Oral (F) 98.0 F 02/20/2016 [facility] Respitory Rate 17 02/20/2016 [facility] Heart Rate 81 02/20/2016 [facility] Heart Rate 73 02/19/2016 [facility] Respitory Rate 17 02/19/2016 [facility] Temperature Oral (F) 97.8 F 02/19/2016 [facility] Systolic (mm Hg) 96 02/19/2016 [facility] Diastolic (mm Hg) 63 02/19/2016 [facility] Systolic (mm Hg) 128 02/19/2016 [facility] Diastolic (mm Hg) 84 02/19/2016 [facility] Heart Rate 82 02/19/2016 [facility] Temperature Oral (F) 97.9 F 02/19/2016 [facility] Respitory Rate 17 02/19/2016 [facility] Height 177.8 cm 02/17/2016 [facility] BMI Calculated 40.98 02/17/2016 [facility] Weight 129.545 02/17/2016 [facility] Weight 129.545 02/17/2016 [facility] BMI Calculated 40.98 02/17/2016 [facility] Height 177.8 cm 02/17/2016 [facility] Encounters Location Location Encounter Encounter Reason Attending ADM DC Status Source Details Type Number For Provider Date Date [facility] [id number] Osmar 02/16 02/19 Freddy Roberts /2015 [facility] [id number] Fei 03/02 03/02 Freddy Partida /2015 [facility] [id number] Rachel Platt 03/05 03/05 Freddy /2015 [facility] [id number] Agustin 04/25 04/26 Freddy Lopez /2015 [facility] [id number] Geronimo 05/05 05/07 Freddy Dupont /2015 [facility] [id number] Karey 05/17 05/18 Freddy Zuleta /2015 [facility] Procedures Procedure Code Date Perfomer Comments Source Catheterization of [id number] [facility] right heart Lithotripsy [id number] [facility] Placement of stent in [id number] R RCA 100% [facility] cardiac blockage conduit<sup>1</sup>
--- NOTE | 2018-01-11 14:27 | EDPHYS ---
Physician Documentation [facility] Name: Marquis Nelson Age: 47 yrs Sex: Male : 1970 Arrival Date: 01/11/2018 Time: 13:47 Bed 26 Private MD: ED Physician Jose Nolasco HPI: 01/11 14:21 This 47 yrs old Male presents to ER via EMS with complaints of Chest Pain, ap Syncope. 14:21 The patient or guardian reports chest pain that is located primarily in the anterior ap chest wall, bilaterally. Onset: just prior to arrival. The pain does not radiate. Associated signs and symptoms: Pertinent positives: syncope. The chest pain is described as a heaviness, a pressure. Severity of pain: At its worst the pain was moderate in the emergency department the pain is unchanged. The patient has experienced similar episodes in the past, several times. Historical: - Allergies: 13:58 Beta Blockers (sensitive/hypotension); iw 13:58 Flomax; iw 13:58 Neurontin; iw 13:58 Skelaxin; iw 13:58 Stadol; iw 13:58 tramadol; iw 13:58 Demerol; iw - Home Meds: 14:01 allopurinol 300 mg Oral tab 1 tab once daily [Active]; amlodipine 5 mg tab 1 tab once iw daily [Active]; atorvastatin 40 mg Oral tab 1 tab once daily [Active]; clonazepam 1 mg Oral TbDL 2 times per day [Active]; docusate sodium 100 mg Oral tab 2 times per day [Active]; furosemide 80 mg Oral tab 2 times per day [Active]; Inspra 50 mg Oral tab 1 tab 2 times per day [Active]; Lovenox 120 mg/0.8 mL Sub-Q syrg once daily [Active]; metolazone 2.5 mg Oral tab as needed [Active]; metoprolol succinate 6.25mg Oral Tb24 as needed [Active]; Nitrostat SL as needed [Active]; Novolog Sub-Q [Active]; pantoprazole Oral [Active]; Plavix 75 mg Oral tab 1 tab once daily [Active]; Potassium Chloride 60MEQ Oral 3 times per day [Active]; Ranexa 1,000 mg Oral Tb12 [Active]; Robaxin Oral [Active]; warfarin 2.5 mg Oral tab 1 tab once daily [Active]; - PMHx: 13:58 AAA; Anemia; Anxiety; Atrial Fib; CHF; GERD; High Cholesterol; Hypertension; Kidney iw stones; Myocardial infarction; Pulmonary Embolism; R BUNDLE BRANCH BLOCK; Sleep Apnea; ADD/ADHD; - Immunization history:: Adult Immunizations up to date. - Ebola Screening: : Patient negative for fever greater than or equal to 101.5 degrees Fahrenheit, and additional compatible Ebola Virus Disease symptoms Patient denies exposure to infectious person Patient denies travel to an Ebola-affected area in the 21 days before illness onset No symptoms or risks identified at this time. - Family history:: not pertinent. - Social history:: Smoking status: Patient/guardian denies using tobacco, never smoked. ROS: 14:21 Constitutional: Negative for fever, chills, and weight loss, Eyes: Negative for injury, ap pain, redness, and discharge, ENT: Negative for injury, pain, and discharge, Neck: Negative for injury, pain, and swelling, Respiratory: Negative for shortness of breath, cough, wheezing, and pleuritic chest pain, Abdomen/GI: Negative for abdominal pain, nausea, vomiting, diarrhea, and constipation, Back: Negative for injury and pain, : Negative for injury, bleeding, discharge, and swelling, MS/Extremity: Negative for injury and deformity, Skin: Negative for injury, rash, and discoloration, Psych: Negative for depression, anxiety, suicide ideation, homicidal ideation, and hallucinations, Allergy/Immunology: Negative for hives, rash, and allergies, Endocrine: Negative for neck swelling, polydipsia, polyuria, polyphagia, and marked weight changes, Hematologic/Lymphatic: Negative for swollen nodes, abnormal bleeding, and unusual bruising. 14:21 Cardiovascular: Positive for chest pain. 14:21 Respiratory: Positive for shortness of breath. 14:21 MS/extremity: Negative for erythema, pain, swelling, tenderness. Exam: 14:21 Constitutional: This is a well developed, well nourished patient who is awake, alert, ap and in no acute distress. Head/Face: Normocephalic, atraumatic. Eyes: Pupils equal round and reactive to light, extra-ocular motions intact. Lids and lashes normal. Conjunctiva and sclera are non-icteric and not injected. Cornea within normal limits. Periorbital areas with no swelling, redness, or edema. ENT: Nares patent. No nasal discharge, no septal abnormalities noted. Tympanic membranes are normal and external auditory canals are clear. Oropharynx with no redness, swelling, or masses, exudates, or evidence of obstruction, uvula midline. Mucous membranes moist. Neck: Trachea midline, no thyromegaly or masses palpated, and no cervical lymphadenopathy. Supple, full range of motion without nuchal rigidity, or vertebral point tenderness. No Meningismus. Chest/axilla: Normal chest wall appearance and motion. Nontender with no deformity. No lesions are appreciated. Cardiovascular: Regular rate and rhythm with a normal S1 and S2. No gallops, murmurs, or rubs. Normal PMI, no JVD. No pulse deficits. Respiratory: Lungs have equal breath sounds bilaterally, clear to auscultation and percussion. No rales, rhonchi or wheezes noted. No increased work of breathing, no retractions or nasal flaring. Abdomen/GI: Soft, non-tender, with normal bowel sounds. No distension or tympany. No guarding or rebound. No evidence of tenderness throughout. Back: No spinal tenderness. No costovertebral tenderness. Full range of motion. Male : Normal genitalia with no discharge or lesions. Skin: Warm, dry with normal turgor. Normal color with no rashes, no lesions, and no evidence of cellulitis. MS/ Extremity: Pulses equal, no cyanosis. Neurovascular intact. Full, normal range of motion. Neuro: Awake and alert, GCS 15, oriented to person, place, time, and situation. Cranial nerves II-XII grossly intact. Motor strength 5/5 in all extremities. Sensory grossly intact. Cerebellar exam normal. Normal gait. Psych: Awake, alert, with orientation to person, place and time. Behavior, mood, and affect are within normal limits. Vital Signs: 13:57 BP 126 / 77; Pulse 86; Resp 18; Temp 98.2; Pulse Ox 96% on R/A; Weight 123.83 kg; iw Height 5 ft. 10 in. (177.80 cm); Pain 8/10; 15:30 BP 119 / 73; Pulse 81; Resp 18; Pulse Ox 97% on R/A; mg2 16:00 BP 111 / 77; Pulse 79; Resp 18; Pulse Ox 98% ; tl3 16:58 BP 117 / 80; Pulse 82; Resp 16; Pulse Ox 97% ; tl3 13:57 Body Mass Index 39.17 (123.83 kg, 177.80 cm) iw MDM: 13:48 Patient medically screened. [facility] 14:25 Data reviewed: vital signs, nurses notes, lab test result(s), EKG, radiologic studies, [facility] CT scan, plain films. 01/11 14:21 Order name: Basic Metabolic Panel; Complete Time: 15:09 [facility] 01/11 14:21 Order name: CBC with Diff; Complete Time: 15:09 [facility] 01/11 14:21 Order name: Ckmb; Complete Time: 15:09 [facility] 01/11 14:21 Order name: CPK; Complete Time: 15:09 [facility] 01/11 14:21 Order name: LFT's; Complete Time: 15:09 [facility] 01/11 14:21 Order name: Magnesium; Complete Time: 15:09 [facility] 01/11 14:21 Order name: NT PRO-BNP; Complete Time: 15:09 [facility] 01/11 14:21 Order name: PT-INR; Complete Time: 15:09 [facility] 01/11 14:21 Order name: Ptt, Activated; Complete Time: 15:09 [facility] 01/11 14:21 Order name: Troponin (emerg Dept Use Only); Complete Time: 15:09 [facility] 01/11 14:21 Order name: XRAY Chest (1 view); Complete Time: 16:37 [facility] 01/11 14:21 Order name: Lipase; Complete Time: 15:09 [facility] 01/11 14:21 Order name: CT Traumagram (Head C Spine CAP wo con); Complete Time: 16:37 [facility] 01/11 14:51 Order name: Wrist Left (3 View) XRAY; Complete Time: 16:50 [facility] 01/11 14:21 Order name: EKG; Complete Time: 14:22 [facility] 01/11 14:21 Order name: Cardiac monitoring; Complete Time: 15:13 [facility] 01/11 14:21 Order name: EKG - Nurse/Tech; Complete Time: 15:19 [facility] 01/11 14:21 Order name: IV Saline Lock; Complete Time: 15:13 [facility] 01/11 14:21 Order name: Labs collected and sent; Complete Time: 15:13 [facility] 01/11 14:21 Order name: O2 Per Protocol; Complete Time: 15:13 [facility] 01/11 14:21 Order name: O2 Sat Monitoring; Complete Time: 15:13 [facility] Administered Medications: 15:20 Drug: morphine 4 mg Route: IVP; Infused Over: 2 mins; Site: right wrist; mg2 15:31 Follow up: Response: No adverse reaction; Pain is decreased mg2 15:20 Drug: Zofran 4 mg Route: IVP; Infused Over: 2 mins; Site: right wrist; mg2 15:31 Follow up: Response: No adverse reaction mg2 15:53 Drug: morphine 4 mg Route: IVP; Infused Over: 3 mins; Site: right wrist; tl3 16:55 Follow up: Response: No adverse reaction tl3 16:54 Drug: morphine 4 mg Route: IVP; Infused Over: 2 mins; Site: right wrist; tl3 16:54 Follow up: Response: Medication administered at discharge. tl3 Disposition: 01/11/18 14:27 Transfer ordered to [facility]. Diagnosis are Chest pain, unspecified, Syncope and collapse, Superficial injury of head, Type 2 diabetes mellitus, Obesity, unspecified. - Reason for transfer: Higher level of care. - Accepting physician is to [facility]. - Condition is Fair. - Problem is new. - Symptoms have improved. Signatures: Dispatcher [employer] EDMS Jose Nolasco MD MD cha Williams, Irene, RN RN iw Pau Lainez RN RN tl3 Miles Dowd RN RN mg2 Corrections: (The following items were deleted from the chart) 16:38 14:27 01/11/2018 14:27 Transfer ordered to [facility]. Diagnosis is Chest pain, ap unspecified; Syncope and collapse; Superficial injury of head. Reason for transfer: Higher level of care. Accepting physician is to [facility]. Condition is Fair. Problem is new. Symptoms have improved. [facility] 16:59 16:38 01/11/2018 14:27 Transfer ordered to [facility]. Diagnosis is Chest pain, tl3 unspecified; Syncope and collapse; Superficial injury of head; Type 2 diabetes mellitus; Obesity, unspecified. Reason for transfer: Higher level of care. Accepting physician is to [facility]. Condition is Fair. Problem is new. Symptoms have improved. [facility]
--- NOTE | 2018-01-11 14:27 | ER ---
Nurse's Notes [facility] Name: Marquis Nelson Age: 47 yrs Sex: Male : 1970 Arrival Date: 01/11/2018 Time: 13:47 Bed 26 Private MD: Diagnosis: Chest pain, unspecified;Syncope and collapse;Superficial injury of head;Type 2 diabetes mellitus;Obesity, unspecified Presentation: 01/11 13:53 Presenting complaint: Patient states: pt started having chest pain this morning, was iw found by his passed out on floor around 1315 when she returned from [facility], pt states he remembers having CP then walking to bathroom and doesn't remember what happened after that, states hit the cat bowl when he fell, c/o pain to left ribs. Pt A\T\OX3. Transition of care: patient was not received from another setting of care. Onset of symptoms was January 11, 2018. Risk Assessment: Do you want to hurt yourself or someone else? Patient reports no desire to harm self or others. Initial Sepsis Screen: Does the patient meet any 2 criteria? No. Patient's initial sepsis screen is negative. Does the patient have a suspected source of infection? No. Patient's initial sepsis screen is negative. Care prior to arrival: Medication(s) given: ASA, 81 mg, x 4. 13:53 Method Of Arrival: EMS: [facility] iw 13:53 Acuity: THANH 2 iw Historical: - Allergies: 13:58 Beta Blockers (sensitive/hypotension); iw 13:58 Flomax; iw 13:58 Neurontin; iw 13:58 Skelaxin; iw 13:58 Stadol; iw 13:58 tramadol; iw 13:58 Demerol; iw - Home Meds: 14:01 allopurinol 300 mg Oral tab 1 tab once daily [Active]; amlodipine 5 mg tab 1 tab once iw daily [Active]; atorvastatin 40 mg Oral tab 1 tab once daily [Active]; clonazepam 1 mg Oral TbDL 2 times per day [Active]; docusate sodium 100 mg Oral tab 2 times per day [Active]; furosemide 80 mg Oral tab 2 times per day [Active]; Inspra 50 mg Oral tab 1 tab 2 times per day [Active]; Lovenox 120 mg/0.8 mL Sub-Q syrg once daily [Active]; metolazone 2.5 mg Oral tab as needed [Active]; metoprolol succinate 6.25mg Oral Tb24 as needed [Active]; Nitrostat SL as needed [Active]; Novolog Sub-Q [Active]; pantoprazole Oral [Active]; Plavix 75 mg Oral tab 1 tab once daily [Active]; Potassium Chloride 60MEQ Oral 3 times per day [Active]; Ranexa 1,000 mg Oral Tb12 [Active]; Robaxin Oral [Active]; warfarin 2.5 mg Oral tab 1 tab once daily [Active]; - PMHx: 13:58 AAA; Anemia; Anxiety; Atrial Fib; CHF; GERD; High Cholesterol; Hypertension; Kidney iw stones; Myocardial infarction; Pulmonary Embolism; R BUNDLE BRANCH BLOCK; Sleep Apnea; ADD/ADHD; - Immunization history:: Adult Immunizations up to date. - Ebola Screening: : Patient negative for fever greater than or equal to 101.5 degrees Fahrenheit, and additional compatible Ebola Virus Disease symptoms Patient denies exposure to infectious person Patient denies travel to an Ebola-affected area in the 21 days before illness onset No symptoms or risks identified at this time. - Family history:: not pertinent. - Social history:: Smoking status: Patient/guardian denies using tobacco, never smoked. Screenin:30 Abuse screen: Denies threats or abuse. Nutritional screening: No deficits noted. mg2 Tuberculosis screening: No symptoms or risk factors identified. Fall Risk Fall in past 12 months (25 points). Assessment: 13:30 General: Appears uncomfortable, well groomed, well developed, well nourished, Behavior mg2 is calm, cooperative, appropriate for age. Pain: Complains of pain in forehead and back and left wrist Pain does not radiate. Pain: Pain began 1 hour ago. Neuro: Level of Consciousness is awake, alert, obeys commands, Oriented to person, place, time, situation, Appropriate for age. 13:30 Cardiovascular: Heart tones S1 S2 present Patient's skin is warm and dry. Respiratory: mg2 Airway is patent Respiratory effort is even, unlabored, Respiratory pattern is regular, symmetrical, Breath sounds are clear bilaterally. GI: No deficits noted. No signs and/or symptoms were reported involving the gastrointestinal system. : No signs and/or symptoms were reported regarding the genitourinary system. EENT: No signs and/or symptoms were reported regarding the EENT system. Derm: Skin is pink, warm \T\ dry. 13:30 General: General: pt reports that he was going to the bathroom when he started feeling tl3 bad and tried to get back to his recliner to sit down, that is the last thing that he remembers, his found him lying on the floor unresponsive, it took several attempts to rouse him, pt has hematoma to left side of forehead, left wrist swelling, is AAOX4 upon arrival to hospital. 15:30 Reassessment: Patient appears in no apparent distress at this time. No changes from mg2 previously documented assessment. Patient and/or family updated on plan of care and expected duration. Pain level reassessed. Patient is alert, oriented x 3, equal unlabored respirations, skin warm/dry/pink. family at bedside, no needs at this time. 16:00 Reassessment: pt complains of pain, MD informed, new orders received. tl3 16:55 Reassessment: Patient appears in no apparent distress at this time. No changes from tl3 previously documented assessment. Patient and/or family updated on plan of care and expected duration. Pain level reassessed. Patient is alert, oriented x 3, equal unlabored respirations, skin warm/dry/pink. EMS here for transport. Vital Signs: 13:57 BP 126 / 77; Pulse 86; Resp 18; Temp 98.2; Pulse Ox 96% on R/A; Weight 123.83 kg; iw Height 5 ft. 10 in. (177.80 cm); Pain 8/10; 15:30 BP 119 / 73; Pulse 81; Resp 18; Pulse Ox 97% on R/A; mg2 16:00 BP 111 / 77; Pulse 79; Resp 18; Pulse Ox 98% ; tl3 16:58 BP 117 / 80; Pulse 82; Resp 16; Pulse Ox 97% ; tl3 13:57 Body Mass Index 39.17 (123.83 kg, 177.80 cm) iw ED Course: 13:30 Patient has correct armband on for positive identification. Placed in gown. Bed in low mg2 position. Call light in reach. Side rails up X 1. e learning manager on. Pulse ox on. NIBP on. 13:30 No provider procedures requiring assistance completed. Initial lab(s) drawn, by tx, mg2 sent to lab. Inserted saline lock: 22 gauge in right wrist, using aseptic technique. Blood collected. Patient maintains SpO2 saturation greater than 95% on room air. 13:47 Patient arrived in ED. iw 13:48 Jose Nolasco MD is Attending Physician. [facility] 13:57 Triage completed. iw 13:57 Arm band placed on. iw 14:15 Pau Lainez, RN is Primary Nurse. tl3 14:52 CT Traumagram (Head C Spine CAP wo con) In Process Unspecified. EDMS 15:05 XRAY Chest (1 view) In Process Unspecified. EDMS 15:36 Wrist Left (3 View) XRAY In Process Unspecified. EDMS 16:58 Patient transferred, IV remains in place. tl3 Administered Medications: 15:20 Drug: morphine 4 mg Route: IVP; Infused Over: 2 mins; Site: right wrist; mg2 15:31 Follow up: Response: No adverse reaction; Pain is decreased mg2 15:20 Drug: Zofran 4 mg Route: IVP; Infused Over: 2 mins; Site: right wrist; mg2 15:31 Follow up: Response: No adverse reaction mg2 15:53 Drug: morphine 4 mg Route: IVP; Infused Over: 3 mins; Site: right wrist; tl3 16:55 Follow up: Response: No adverse reaction tl3 16:54 Drug: morphine 4 mg Route: IVP; Infused Over: 2 mins; Site: right wrist; tl3 16:54 Follow up: Response: Medication administered at discharge. tl3 Outcome: 14:27 ER care complete, transfer ordered by . [facility] 16:58 Transferred to [facility]. tl3 16:58 Condition: stable 16:58 Discharge instructions given to patient, family, Instructed on the need for transfer, Demonstrated understanding of instructions. 16:59 Patient left the ED. tl3 Signatures: Dispatcher [employer] EDRI Jose Nolasco MD MD cha Williams, Irene RN RN Pau Lainez, NAVJOT MORFIN tl3 Miles Dowd RN RN mg2
[2018-01-11 14:33] LABS: Absolute Lymphocytes (CBC) 1.9 K/uL (0.7-4.9); Absolute Monocytes 0.8 K/uL (0.1-1.3); Absolute Neutrophil 8.6 K/uL (1.8-8.0); Basophils % 0.5 % (0-1.3); Eosinophils % 0.9 % (0-4.4); Hematocrit 40.7 % (39.6-49.0); Lymphocytes % 16.9 % (15.3-44.8); MCH 26.7 pg (27.0-35.0); MCV 78.3 fL (80-100); MPV 7.8 fL (7.6-11.3); Monocytes % 6.8 % (3.3-12.3); RBC Red Blood Cell Count 5.19 M/uL (4.33-5.43)
[2018-01-11 14:37] LABS: Protime INR 1.87
[2018-01-11 14:53] LABS: ALT/SGPT 31 U/L (12-78); AST/SGOT 19 U/L (15-37); Albumin 3.3 g/dL (3.4-5.0); Alkaline Phosphatase 138 U/L (45-117); BUN Blood Urea Nitrogen 14 mg/dL (7-18); Bicarbonate 24 mmol/L (21-32); Bilirubin Direct 0.1 mg/dL (0-0.2); Bilirubin Total 0.3 mg/dL (0.2-1.0); CKMB Creatine Kinase MB < 1.0 ng/mL (0.3-3.6); Creatine Phosphokinase 39 U/L (39-308); Glucose Level 205 mg/dL (74-106); Lipase 107 U/L (73-393); Magnesium 2.3 mg/dL (1.8-2.4); NT PRO-BNP 30 pg/mL (<125); Potassium 3.8 mmol/L (3.5-5.1); Protein, Total 8.1 g/dL (6.4-8.2); Sodium Level 137 mmol/L (136-145)
[2018-01-11] MEDS ORDERED: ONDANSETRON 4 MG/2 ML VIAL ONE (15:15)
[2018-01-11] MEDS ORDERED: MORPHINE 4 MG/ML SYR ONE ×3 (15:15→16:54)
--- NOTE | 2018-01-11 15:21 | RAD REPORT ---
EXAM DESCRIPTION: CT - Head C Spine Cap Wo Con - 01/11/2018 2:52 pm CLINICAL HISTORY: Fall, head, neck, chest and abdomen pain COMPARISON: CT chest January 09, noncontrast abdomen pelvis CT November 29 TECHNIQUE: Axial [address] head images were obtained. Axial [address] cervical spine images were obtain ed with sagittal and coronal reconstruction images reviewed. Axial 5 mm images of the chest, abdomen and pelvis were obtained. All CT scans are performed using dose optimization technique as appropriate and may include automated exposure control or mA/KV adjustment according to patient size. FINDINGS: No intracranial hemorrhage, mass or edema. No midline shift or abnormal fluid collection. Mastoid air cells and paranasal sinuses are clear. No skull fracture. Cervical bodies are normal in height and alignment. No fracture or acute bone finding.Slight C4-5 and more moderate C5-6 disc space narrowing seen. Advanced for age uncovertebral hypertrophy causes sign ificant left foraminal stenosis at C5-6.No prevertebral soft tissue thickening or paraspinal mass.Wilfredo tral canal detail is inherently limited on CT imaging. CT chest shows no pneumothorax, pulmonary contusion or pleural fluid collection. No mediastinal hem atoma and the aorta and pulmonary arteries are unremarkable. No chest will mass or abnormal axillary finding. Old posterior left rib fractures seen. No acute rib fracture identified. CT abdomen and pelvis show no injury to solid abdominal viscera. Gallbladder and biliary tree are unr emarkable. No bowel injury or significant finding. No free air, free fluid or abnormal stranding. No hernia, mass or bulky lymphadenopathy. No urinary bladder abnormality. Fatty infiltration of the rusty er is noted. A 3 centimeter infrarenal aorta has not changed from prior imaging. No significant bony finding. IMPRESSION: No significant CT Head finding. No fracture or acute cervical spine finding. 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 No significant CT Chest finding. No significant CT Abdomen and Pelvis finding. Fatty infiltration of the liver.
--- NOTE | 2018-01-11 15:22 | RAD REPORT ---
EXAM DESCRIPTION: RAD - Chest Single View - 01/11/2018 3:04 pm CLINICAL HISTORY: Chest pain COMPARISON: January 09 TECHNIQUE: AP portable chest image was obtained 1453 hours . FINDINGS: No focal mass or consolidation. Heart size is accentuated by shallow inspiration. No signi ficant failure or volume overload. Trachea is midline. No measurable pleural effusion and no pneumoth orax. No gross bony abnormality seen. No acute aortic findings suspected. IMPRESSION: No acute cardiopulmonary process. No significant change from comparison.
--- NOTE | 2018-01-11 16:42 | RAD REPORT ---
EXAM DESCRIPTION: RAD - Wrist Left 3 View - 01/11/2018 3:36 pm CLINICAL HISTORY: Syncope, fall, wrist pain COMPARISON: None. FINDINGS: No fracture is identified. Subtle cortical irregularity near the base of the radial and ul na styloid is believed be normal variant. There is no dislocation or periosteal reaction noted. Soft tissue swelling over the dorsum of the wrist noted. IMPRESSION: No acute fracture confirmed. Repeat imaging in 5-7 days recommended if the patient remai ns symptomatic for fracture.
[2018-01-11 17:03] VITALS: TEMP 98.2
[2018-01-11 17:06] VITALS: BP 117/80; O2SAT 97
--- NOTE | 2018-01-12 07:40 | EKG ---
Test Date: 2018-01-11 Test Time: 15:17:04 Program Proposals Coordinator: TL MEASUREMENT RESULTS: Intervals: Rate: 84 RI: 168 QRSD: 142 QT: 450 QTc: 531 [place]: P: 27 RI: 168 QRS: -11 T: 10 INTERPRETIVE STATEMENTS: Normal sinus rhythm Right bundle branch block Inferior infarct, age undetermined T wave abnormality, consider lateral ischemia Abnormal ECG Compared to ECG 01/09/2018 01:07:00 T-wave abnormality now present Possible ischemia now present Fusion complex(es) no longer present Myocardial infarct finding still present Electronically Signed On 01-12-18 07:40:06 CDT by Guilherme Sharma
== END 2018-01-11 16:59 | disposition short-term general hospital (02) ==
LOC: ER 13:41
DX: S00.90XA Unspecified superficial injury of unspecified part of head, initial encounter (principal); R55 Syncope and collapse; I10 Essential (primary) hypertension; E11.9 Type 2 diabetes mellitus without complications; E78.00 Pure hypercholesterolemia, unspecified; E66.9 Obesity, unspecified; I48.91 Unspecified atrial fibrillation; F41.9 Anxiety disorder, unspecified; I50.9 Heart failure, unspecified; I25.2 Old myocardial infarction; Z79.4 Long term (current) use of insulin; Z79.01 Long term (current) use of anticoagulants; Z79.82 Long term (current) use of aspirin; Z88.5 Allergy status to narcotic agent; Z88.6 Allergy status to analgesic agent; Z88.8 Allergy status to other drugs, medicaments and biological substances
CPT/HCPCS: 36415; 70450; 71045; 71250; 72125; 80048; 80076; 82550; 82553; 83690; 83735; 83880; 84484; 85025; 85610; 85730; 93005; 96374; 96375; 99285; J2405

== ENCOUNTER 2018-01-21 00:20 | Emergency (ER) | payer OTHER ==
--- OUTSIDE RECORDS SUMMARY | 2018-01-21 00:29 | XMS REPORT | Continuity of Care Document ---
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 [place] Congestive heart Resolved Problem 05/20/2016 2L fluid failure<sup>1</sup> restrictio [place] n/24hrs Diabetes Resolved Problem 05/20/2016 [facility] Hypercholesteremia Resolved Problem 05/20/2016 [facility] Hypertension Resolved Problem 05/20/2016 [facility] Kidney stone Resolved Problem 05/20/2016 [facility] Heart Resolved Problem 05/20/2016 December 04, attack<sup>2</sup> 2016 [place] Bundle branch block, Resolved Problem 05/20/2016 right [place] Sleep apnea Resolved Problem 05/20/2016 [facility] TUBULO-INTERSTITIAL Active [facility] NEPHRITIS, NOT [facility] [place] CHEST PAIN, Active [facility] UNSPECIFIED [place] Medications Medication Details Route Status Patient Ordering Order Source Instructions Provider Date Aspirin 81 mg, 1 tab, Inactive Route: PO, Drug 2015 [place] form: ECTAB, ONCE, Dosing Weight 128.636, kg, Priority: STAT, Start date: 05/17/16 17:16:00 HOSPITAL AIDE, Stop date: 05/17/16 17:16:00 CSTNotes: Do not crush or chew. (Same As: Ecotrin) Saline Flush 10 mL, Route: Inactive 0.9% IVP, Drug Form: 2015 [place] INJ, Dosing Weight 128.636, kg, PRN, PRN Line Flush, Start date: 05/17/16 15:48:00 HOSPITAL AIDE, Duration: 30 day, Stop date: 06/16/16 15:47:00 CSTNotes: (Same as: BD Posiflush) Plavix 75 mg, 1 tab, No Longer Route: PO, Drug Active 2015 [place] form: TAB, Daily, Dosing Weight 131.7, kg, Start date: 05/07/16 9:00:00 HOSPITAL AIDE, Duration: 30 day, Stop date: 06/05/16 9:00:00 CSTNotes: (Same As: Plavix) metoprolol 25 mg 25 mg=1 tab, PO, Active oral tablet, Daily, # 30 tab, 2015 [place] extended release 0 Refill(s) Protonix 40 mg, 1 tab, Inactive Route: PO, Drug 2015 [place] form: ECTAB, Before Dinner, Dosing Weight 131.7, kg, Start date: 05/06/16 16:30:00 HOSPITAL AIDE, Duration: 30 day, Stop date: 06/04/16 16:30:00 CSTNotes: Tablet should not be chewed or crushed. (Same as: Protonix) Lisinopril 2.5 mg, 0.5 tab, Inactive Route: PO, Drug 2015 [place] form: TAB, Daily, Dosing Weight 131.7, kg, Start date: 05/06/16 9:00:00 HOSPITAL AIDE, Duration: 30 day, Stop date: 06/04/16 9:00:00 CSTNotes: (Same as: Prinivil, Zestril) Aspirin 325 MG 325 mg, 1 tab, Inactive Oral Tablet Route: PO, Drug 2015 [place] form: TAB, Daily, Dosing Weight 127.273, kg, Start date: 05/06/16 9:00:00 HOSPITAL AIDE, Duration: 30 day, Stop date: 06/04/16 9:00:00 CSTNotes: Take with food. atorvastatin 40 40 mg=1 tab, PO, Active mg oral tablet Bedtime, # 90 2015 [place] tab, 1 Refill(s) Alprazolam 1 MG 1 mg, 2 tab, No Longer Oral Tablet Route: PO, Drug Active 2015 [place] [Xanax] form: TAB, Q8H, Dosing Weight 131.7, kg, PRN Anxiety, Start date: 05/05/16 22:49:00 HOSPITAL AIDE, Duration: 30 day, Stop date: 06/04/16 22:48:00 CSTNotes: With food or milk (Same as: Xanax) Lipitor 80 mg, 2 tab, No Longer Route: PO, Drug Active 2015 [place] form: TAB, Bedtime, Dosing Weight 127.273, kg, Start date: 05/05/16 21:00:00 HOSPITAL AIDE, Duration: 30 day, Stop date: 06/03/16 21:00:00 CSTNotes: (Same as: Lipitor) Clindamycin 300 mg, 2 cap, No Longer Route: PO, Drug Active 2015 [place] form: CAP, ABXQ6H, Dosing Weight 127.273, kg, Start date: 05/05/16 21:00:00 HOSPITAL AIDE, Stop date: 06/04/16 15:00:00 CSTNotes: (Same As: Cleocin) Saline Flush 10 ml, Route: No Longer 0.9% IVP, Drug Form: Active 2015 [place] INJ, Dosing Weight 127.273, kg, Q12H, Start date: 05/05/16 21:00:00 HOSPITAL AIDE, Duration: 30 day, Stop date: 06/04/16 9:00:00 CSTNotes: preservative free. Insulin, Aspart, 1 unit, 0.01 mL, No Longer Human Route: SUB-Q, Active 2015 [place] Drug form: SOLN, Bedtime, Dosing Weight 127.273, kg, PRN Blood Glucose Results, Start date: 05/05/16 20:27:00 HOSPITAL AIDE, Duration: 30 day, Stop date: 06/04/16 20:26:00 CSTNotes: Roll in palms of hands gently; Do not shake vigorously. (Same as: NovoLOG) "single patient use only" WASTE: F/P - Black; E - Municipal Trash Bin Stable for 28 days at room temperature. Expires in days from Da te Glucagon 1 mg, Route: IM, No Longer Drug form: Active 2015 [place] PDR/INJ, PRN, Dosing Weight 127.273, kg, PRN Blood Glucose Results, Start date: 05/05/16 20:27:00 HOSPITAL AIDE, Duration: 30 day, Stop date: 06/04/16 20:26:00 HOSPITAL AIDE Dextrose 50% 12.5 gm, 25 mL, No Longer Syringe Route: IVP, Drug Active 2015 [place] Form: INJ, Dosing Weight 127.273, kg, PRN, PRN Blood Glucose Results, Start date: 05/05/16 20:27:00 HOSPITAL AIDE, Duration: 30 day, Stop date: 06/04/16 20:26:00 HOSPITAL AIDE Morphine 2 mg, 1 mL, No Longer Route: IVP, Drug Active 2015 [place] form: INJ, Q2H, Dosing Weight 127.273, kg, PRN as needed for chest pain, Priority: STAT, Start date: 05/05/16 20:00:00 HOSPITAL AIDE, Duration: 30 day, Stop date: 06/04/16 19:59:00 CSTNotes: (Same as:MORPhine Sulfate) Plavix 75 mg, 1 tab, Inactive Route: PO, Drug 2015 [place] form: TAB, ONCE, Dosing Weight 127.273, kg, Priority: STAT, Start date: 05/05/16 19:58:00 HOSPITAL AIDE, Stop date: 05/05/16 19:58:00 CSTNotes: (Same As: Plavix) Saline Flush 10 ml, Route: No Longer 0.9% IVP, Drug Form: Active 2015 [place] INJ, Dosing Weight 127.273, kg, PRN, PRN Line Flush, Start date: 05/05/16 19:55:00 HOSPITAL AIDE, Duration: 30 day, Stop date: 06/04/16 19:54:00 CSTNotes: (Same as: BD Posiflush) Albuterol 0.833 3 ml, Route: No Longer MG/ML / NEB, Drug Form: Active 2015 [place] Ipratropium SOLN, Dosing [place] 0.167 Weight 127.273, MG/ML Inhalant kg, PRN, PRN Solution Respiratory Protocol, Start date: 05/05/16 19:55:00 HOSPITAL AIDE, Duration: 30 day, Stop date: 06/04/16 19:54:00 CSTNotes: (Same as: Duoneb) Nystatin 100 1 appl, Route: No Longer UNT/MG Topical TOP, PRN, Drug Active 2015 [place] Powder form: PWDR, PRN For Fungal Prophylaxis, Start date: 05/05/16 19:55:00 HOSPITAL AIDE, Duration: 30 day, Stop date: 06/04/16 19:54:00 [...] Volume: 500 mL, Start date: 05/05/16 19:43:00 HOSPITAL AIDE, Duration: 30 day, Stop date: 06/04/16 19:42:00 HOSPITAL AIDE Heparin 60 Route: IVP, PRN, No Longer unit/kg Bolus 5,800 unit, 5.8 Active 2015 [place] (Heparin Dosing mL, Drug form: Weight) INJ, PRN, Heparin Protocol, Start date: 05/05/16 19:43:00 HOSPITAL AIDE Stop date: 06/04/16 19:42:00 HOSPITAL AIDE Heparin 30 Route: IVP, PRN, No Longer unit/kg Bolus 2,900 unit, 2.9 Active 2015 [place] (Heparin Dosing mL, Drug form: Weight) INJ, PRN, Heparin Protocol, Start date: 05/05/16 19:43:00 HOSPITAL AIDE Stop date: 06/04/16 19:42:00 HOSPITAL AIDE Heparin - one 4,000 unit, 4 Inactive time bolus for mL, Route: IVP, 2016 [place] ACS Drug form: INJ, ONCE, Dosing Weight 127.273, kg, Priority: STAT, Start date: 05/05/16 19:43:00 HOSPITAL AIDE, Stop date: 05/05/16 19:43:00 HOSPITAL AIDE Morphine 4 mg, 1 mL, Inactive Route: IVP, Drug 2015 [place] form: INJ, ONCE, Dosing Weight 127.273, kg, Priority: STAT, Start date: 05/05/16 19:25:00 HOSPITAL AIDE, Stop date: 05/05/16 19:25:00 CSTNotes: (Same as:MORPhine Sulfate) Nitroglycerin 1 inch, Route: Inactive 0.02 MG/MG TOP, Dosing 2015 [place] Topical Ointment Weight 127.273, kg, ONCE, STAT, Start date: 05/05/16 17:40:00 HOSPITAL AIDE, Stop date: 05/05/16 17:40:00 HOSPITAL AIDE Aspirin 81 MG 243 mg, Route: Inactive Chewable Tablet PO, Drug form: 2015 [place] CHEWTAB, ONCE, Dosing Weight 127.273, kg, Priority: STAT, Start date: 05/05/16 17:17:00 HOSPITAL AIDE, Stop date: 05/05/16 17:17:00 HOSPITAL AIDE Morphine 4 mg, Route: Inactive IVP, ONCE, 2015 [place] Dosing Weight 127.273, kg, Priority: STAT, Start date: 05/05/16 17:15:00 HOSPITAL AIDE, Stop date: 05/05/16 17:15:00 HOSPITAL AIDE Saline Flush 10 mL, Route: No Longer 0.9% IVP, Drug Form: Active 2015 [place] INJ, Dosing Weight 128.182, kg, PRN, PRN Line Flush, Start date: 05/05/16 16:55:00 HOSPITAL AIDE, Duration: 30 day, Stop date: 06/04/16 16:54:00 CSTNotes: preservative free. Acetaminophen 1 - 2 tab, PO, No Longer 300 MG / Codeine Q4H, PRN Pain, X Active 2015 [place] Phosphate 30 MG 2 day, # 20 tab, Oral Tablet 0 Refill(s) [Tylenol with Codeine #3] Morphine 4 mg, 1 mL, Inactive Route: IVP, Drug 2015 [place] form: INJ, ONCE, Dosing Weight 128.182, kg, Priority: STAT, Start date: 04/25/16 19:51:00 CDT, Stop date: 04/25/16 19:51:00 CDTNotes: (Same as:MORPhine Sulfate) Zofran 4 mg, 2 mL, Inactive Route: IVP, Drug 2015 [place] form: INJ, ONCE, Dosing Weight 128.182, kg, Priority: STAT, Start date: 04/25/16 18:23:00 CDT, Stop date: 04/25/16 18:23:00 CDTNotes: (Same as: Zofran) MEDICATION WASTE Product Size: 4 mg Product Wasted: ___ mg Morphine 4 mg, 1 mL, Inactive Route: IVP, Drug 2015 [place] form: INJ, ONCE, Dosing Weight 128.182, kg, Priority: STAT, Start date: 04/25/16 18:23:00 CDT, Stop date: 04/25/16 18:23:00 CDTNotes: (Same as:MORPhine Sulfate) Saline Flush 10 mL, Route: Inactive 0.9% IVP, Drug Form: 2015 [place] INJ, Dosing Weight 129.091, kg, PRN, PRN Line Flush, Start date: 04/25/16 18:07:00 CDT, Duration: 30 day, Stop date: 05/25/16 17:06:00 CSTNotes: (Same as: BD Posiflush) Acetaminophen 1 tab, PO, Q6H, Active 300 MG / Codeine PRN Pain, X 5 2015 [place] Phosphate 30 MG day, # 20 tab, 0 Oral Tablet Refill(s) Morphine 4 mg, Route: Inactive IVP, ONCE, 2015 [place] Dosing Weight 129.091, kg, Priority: STAT, Start date: 03/05/16 8:44:00 CDT, Stop date: 03/05/16 8:44:00 CDT Ondansetron 4 mg, Route: Inactive IVP, Drug form: 2015 [place] INJ, ONCE, Dosing Weight 129.091, kg, Priority: STAT, Start date: 03/05/16 7:35:00 CDT, Stop date: 03/05/16 7:35:00 CDT Aspirin 324 mg, Route: Inactive PO, ONCE, Dosing 2015 [place] Weight 129.091, kg, Priority: STAT, Start date: 03/05/16 7:22:00 CDT, Stop date: 03/05/16 7:22:00 CDT Morphine 2 mg, Route: Inactive IVP, ONCE, 2015 [place] Dosing Weight 129.091, kg, Priority: STAT, Start date: 03/05/16 7:22:00 CDT, Stop date: 03/05/16 7:22:00 CDT Saline Flush 10 mL, Route: Inactive 0.9% IVP, Drug Form: 2015 [place] INJ, Dosing Weight 129.091, kg, PRN, PRN Line Flush, Start date: 03/05/16 7:22:00 CDT, Duration: 30 day, Stop date: 04/04/16 7:21:00 CDTNotes: (Same as: BD Posiflush) Dilaudid 0.5 mg, 0.5 mL, Inactive Route: IVP, Drug 2015 [place] form: INJ, ONCE, Dosing Weight 128.636, kg, Priority: STAT, Start date: 03/02/16 7:40:00 CDT, Stop date: 03/02/16 7:40:00 CDTNotes: Same as: Dilaudid Ketorolac 30 mg, 1 mL, Inactive Route: IVP, Drug 2015 [place] form: INJ, ONCE, Dosing Weight 128.636, kg, Priority: STAT, Start date: 03/02/16 5:25:00 CDT, Stop date: 03/02/16 5:25:00 CDTNotes: (Same as:Toradol) IV bolus must be given >15 seconds. Give IM administration slowly and deeply into the muscle. Not for use > 4 days MEDICATION WASTE Product Size: 30 mg Product Wasted: ___ mg Morphine 4 mg, 1 mL, Inactive Route: IVP, Drug 2015 [place] form: INJ, ONCE, Dosing Weight 128.636, kg, Priority: STAT, Start date: 03/02/16 5:25:00 CDT, Stop date: 03/02/16 5:25:00 CDTNotes: (Same as:MORPhine Sulfate) Ondansetron 4 mg, 2 mL, Inactive Route: IVP, Drug 2015 [place] form: INJ, ONCE, Dosing Weight 128.636, kg, Priority: STAT, Start date: 03/02/16 5:25:00 CDT, Stop date: 03/02/16 5:25:00 CDTNotes: (Same as: Zofran) MEDICATION WASTE Product Size: 4 mg Product Wasted: ___ mg Saline Flush 10 mL, Route: Inactive 0.9% IVP, Drug Form: 2015 [place] INJ, Dosing Weight 128.636, kg, PRN, PRN Line Flush, Start date: 03/02/16 5:25:00 CDT, Duration: 30 day, Stop date: 04/01/16 5:24:00 CDTNotes: (Same as: BD Posiflush) Sodium Chloride 1,000 mL, 2,000 Inactive 0.154 MEQ/ML ml/hr, Infuse 2015 [place] Injectable Over: 30 Solution minutes, Route: IV, 1,000, Drug form: INJ, ONCE, Priority: STAT, Dosing Weight 128.636 kg, Start date: 03/02/16 5:25:00 CDT, Duration: 1 doses or times, Stop date: 03/02/16 5:25:00 CDT Acetaminophen 1 tab, PO, Q6H, Active 300 MG / Codeine PRN Pain, # 28 2015 [place] Phosphate 30 MG tab, 0 Refill(s) Oral Tablet [Tylenol with Codeine #3] Protonix 40 mg, 1 tab, No Longer Route: PO, Drug Active 2015 [place] form: ECTAB, Before Breakfast, Dosing Weight 129.545, kg, Start date: 02/18/16 7:30:00 CDT, Duration: 30 day, Stop date: 03/18/16 7:30:00 CDTNotes: Tablet should not be chewed or crushed. (Same as: Protonix) Lipitor 80 mg, 2 tab, No Longer Route: PO, Drug Active 2015 [place] form: TAB, Bedtime, Dosing Weight 129.545, kg, Start date: 02/17/16 21:00:00 CDT, Duration: 30 day, Stop date: 03/17/16 21:00:00 CDTNotes: (Same as: Lipitor) Morphine 2 mg, 1 mL, No Longer Route: IVP, Drug Active 2015 [place] form: INJ, Q4H, Dosing Weight 129.545, kg, PRN Pain Score 7-10, Start date: 02/17/16 11:54:00 CDT, Duration: 30 day, Stop date: 03/18/16 11:53:00 CDTNotes: (Same as:MORPhine Sulfate) Lovenox 40 mg, 0.4 mL, No Longer Route: SUB-Q, Active 2015 [place] Drug form: INJ, [id number], Dosing Weight 129.545, kg, Start date: 02/17/16 10:00:00 CDT, Duration: 30 day, Stop date: 03/17/16 10:00:00 CDTNotes: (Same as: Lovenox) Lisinopril 2.5 mg, 0.5 tab, No Longer Route: PO, Drug Active 2015 [place] form: TAB, Daily, Dosing Weight 129.545, kg, Start date: 02/17/16 9:55:00 CDT, Duration: 30 day, Stop date: 03/18/16 9:00:00 CDTNotes: (Same as: Prinivil, Zestril) Imdur 30 mg, 1 tab, No Longer Route: PO, Drug Active 2015 [place] form: ERTAB, QAM, Dosing Weight 129.545, kg, Start date: 02/17/16 9:54:00 CDT, Duration: 30 day, Stop date: 03/18/16 9:00:00 CDTNotes: (Same as:Imdur) "Do Not Crush" Take on empty stomach/ full glass of water. Do not crush Plavix 75 mg, 1 tab, No Longer Route: PO, Drug Active 2015 [place] form: TAB, Daily, Dosing Weight 129.545, kg, Start date: 02/17/16 9:54:00 CDT, Duration: 30 day, Stop date: 03/18/16 9:00:00 CDTNotes: (Same As: Plavix) Aspirin 81 MG 81 mg, 1 tab, No Longer Enteric Coated Route: PO, Drug Active 2015 [place] Tablet form: ECTAB, Daily, Dosing Weight 129.545, kg, Start date: 02/17/16 9:54:00 CDT, Duration: 30 day, Stop date: 03/18/16 9:00:00 CDTNotes: Do not crush or chew. (Same As: Ecotrin) Zofran ODT 4 mg, 1 tab, No Longer Route: PO, Drug Active 2015 [place] form: TABDIS, Q12H, Dosing Weight 129.545, kg, PRN Nausea, Start date: 02/17/16 9:25:00 CDT, Duration: 30 day, Stop date: 03/18/16 9:24:00 CDTNotes: (Same as: Zofran ODT) Nitroglycerin 0.4 mg, 1 tab, No Longer 0.4 MG Route: SL, Drug Active 2015 [place] Sublingual form: TAB, Tablet Q5Min, Dosing [Nitrostat] Weight 129.545, kg, PRN Chest Pain, Start date: 02/17/16 9:25:00 CDT, Duration: 30 day, Stop date: 03/18/16 9:24:00 CDTNotes: (Same as:Nitroquick, Nitrostat) "Do Not Crush" Sublingual tablet Alprazolam 1 MG 1 mg, 1 tab, No Longer Oral Tablet Route: PO, Drug Active 2015 [place] [Xanax] form: TAB, Q8H, Dosing Weight 129.545, kg, PRN Anxiety, Start date: 02/17/16 9:23:00 CDT, Duration: 30 day, Stop date: 03/18/16 9:22:00 CDTNotes: With food or milk (Same as: Xanax) pneumococcal 0.5 mL, Route: Inactive capsular IM, Drug Form: 2016 [place] polysaccharide INJ, Daily, type 1 vaccine / [...] No Longer Disintegrating Q12H, PRN Active 2015 [place] Tablet [Zofran] Nausea, 0 Refill(s) Aspirin 81 MG 81 mg=1 tab, PO, Active Enteric Coated Daily, # 90 tab, 2015 [place] Tablet 3 Refill(s) Nitroglycerin 0.4 mg=1 tab, No Longer 0.4 MG SL, Q5Min, PRN Active 2015 [place] Sublingual Chest Pain, # Tablet 100 tab, 0 [Nitrostat] Refill(s) pantoprazole 40 40 mg=1 tab, PO, Active MG Enteric Daily, # 30 tab, 2016 [place] Coated Tablet 0 Refill(s) [Protonix] 24 HR Isosorbide 30 mg=1 tab, PO, Active Mononitrate 30 QAM, # 30 tab, 0 2015 [place] MG Extended Refill(s) Release Tablet [Imdur] Hydroxyzine 25 mg=1 tab, PO, No Longer Hydrochloride 25 Bedtime, PRN Active 2016 [place] MG Oral Tablet Sleep, # 30 tab, 0 Refill(s) Furosemide 20 MG 20 mg=1 tab, PO, Active Oral Tablet Daily, # 30 tab, 2016 [place] 0 Refill(s) Potassium 20 mEq=1 tab, Active Chloride 20 MEQ PO, Daily, # 90 2016 [place] Extended Release tab, 1 Refill(s) Tablet [Klor-Con] Alprazolam 1 MG 1 mg=1 tab, PO, Active Oral Tablet Q8H, PRN 2016 [place] [Xanax] Anxiety, 0 Refill(s) Metformin 1 tab, PO, BID, Active hydrochloride # 60 tab, 0 2015 [place] 500 MG / Refill(s) repaglinide 1 MG Oral Tablet Acetaminophen 1 tab, PO, Q6H, No Longer 300 MG / Codeine PRN Pain, # 28 Active 2016 [place] Phosphate 30 MG tab, 0 Refill(s) Oral Tablet [Tylenol with Codeine #3] lisinopril 2.5 2.5 mg=1 tab, Active mg oral tablet PO, Daily, # 30 2016 [place] tab, 0 Refill(s) clopidogrel 75 75 mg=1 tab, PO, Active MG Oral Tablet Daily, # 30 tab, 2016 [place] [Plavix] 0 Refill(s) atorvastatin 80 80 mg=1 tab, PO, Active MG Oral Tablet Bedtime, # 30 2016 [place] [Lipitor] tab, 0 Refill(s) Ceftriaxone 1 gm, Route: Inactive IVPB, Drug form: 2015 [place] PDR/INJ, ONCE, Dosing Weight 129.545, kg, Priority: STAT, Start date: 02/17/16 7:01:00 CDT, Stop date: 02/17/16 7:01:00 CDT Dilaudid 0.5 mg, Route: Inactive IVP, ONCE, 2015 [place] Dosing Weight 129.545, kg, Priority: STAT, Start date: 02/17/16 6:28:00 CDT, Stop date: 02/17/16 6:28:00 CDT Zofran 4 mg, Route: Inactive IVP, Drug form: 2015 [place] INJ, ONCE, Dosing Weight 129.545, kg, Priority: STAT, Start date: 02/17/16 5:32:00 CDT, Stop date: 02/17/16 5:32:00 CDT Dilaudid 0.5 mg, Route: Inactive IVP, ONCE, 2015 [place] Dosing Weight 129.545, kg, Priority: STAT, Start date: 02/17/16 5:32:00 CDT, Stop date: 02/17/16 5:32:00 CDT Saline Flush 10 mL, Route: Inactive 0.9% IVP, Drug Form: 2015 [place] INJ, kg, PRN, PRN Line Flush, Start date: 02/17/16 5:19:00 CDT, Duration: 30 day, Stop date: 03/18/16 5:18:00 CDTNotes: (Same as: BD Posiflush) Allergies, Adverse Reactions, Alerts Substance Category Reaction Severity Reaction Status Date Comments Source type Reported beta Assertion Drug Active blockers allergy [place] Flomax Assertion Drug Active allergy [place] Stadol Assertion Drug Active MH allergy [place] traMADol Assertion Drug Active MH allergy [place] Immunizations Immunization Date Given Site Status Last Updated Comments Source pneumococcal 02/17/2016 Not Given [facility] 23-valent vaccine Results Order Name Results Value Reference Date Interpretation Comments Source Range URINE AND UA Mucus Few /LPF None Seen 05/17 STOOL /LPF [place] URINE AND UA Leuk Est Negative Negative 05/17 STOOL [place] (05/17/16 5:16 PM) URINE AND UA Bili Negative Negative 05/17 STOOL [place] *NA* (05/17/16 5:16 PM) URINE AND UA Ketones Negative Negative 05/17 STOOL mg/dL mg/dL [place] URINE AND UA Nitrite Negative Negative 05/17 STOOL [place] (05/17/16 5:16 PM) URINE AND UA 0.2 EU/dL 0.1 - 1.0 05/17 STOOL Urobilinogen [place] URINE AND UA Turbidity Clear Clear 05/17 STOOL [place] (05/17/16 5:16 PM) URINE AND UA Blood Negative Negative 05/17 STOOL [place] (05/17/16 5:16 PM) URINE AND UA Glucose Negative Negative 05/17 STOOL mg/dL mg/dL [place] URINE AND UA Protein Negative Negative 05/17 STOOL mg/dL mg/dL [place] URINE AND UA pH 6.5 5.0 - 8.0 05/17 STOOL [place] URINE AND UA Spec Grav 1.020 <=1.030 05/17 STOOL [place] URINE AND UA Color Yellow Yellow 05/17 STOOL [place] *NA* (05/17/16 5:16 PM) URINE AND UA Sq Epi Rare /LPF Few /LPF 05/17 STOOL [place] URINE AND UA Bacteria Occasional None Seen 05/17 STOOL /HPF /HPF [place] URINE AND UA RBC 0-2 /HPF 0 - 2 05/17 STOOL [place] URINE AND UA WBC 0-2 /HPF None Seen 05/17 STOOL /HPF /2015 [place] CARDIAC Total CK 74 unit/L 12 - 191 05/17 ENZYMES [place] CARDIAC CK MB 0.8 ng/mL 0.5 - 3.6 05/17 ENZYMES [place] CARDIAC Troponin-I null 0.00 - 05/17 ENZYMES 0.40 [place] CARDIAC CK-MB INDEX 1.1 0.0 - 2.5 05/17 [place] CHEM PANEL eGFR 79 05/17 Result Comment: [...] is not recommended in the following populations: [place] 3m2 Individuals with unstable creatinine concentrations, including [...] Lvl 106 meq/L 95 - 109 05/17 [place] CHEM PANEL CO2 28 meq/L 24 - 32 05/17 [place] CHEM PANEL Calcium Lvl 8.8 mg/dL 8.5 - 10.5 05/17 [place] CHEM PANEL Bili Total 0.4 mg/dL 0.2 - 1.3 05/17 [place] CHEM PANEL AGAP 9.7 meq/L 10.0 - 05/17 20.0 [place] CHEM PANEL B/C Ratio 14 6 - 25 05/17 [place] CHEM PANEL ASPARTATE 14 unit/L 0 - 37 05/17 MH [place] CHEM PANEL Total 7.7 g/dL 6.4 - 8.4 05/17 [place] CHEM PANEL Globulin 4.4 g/dL 2.7 - 4.2 05/17 [place] CHEM PANEL A/G Ratio 0.8 0.7 - 1.6 11 [place] CHEM PANEL Glucose Lvl 148 mg/dL 70 - 99 05/17 [place] CHEM PANEL BUN 15 mg/dL 7 - 22 05/17 [place] CHEM PANEL Creatinine 1.11 mg/dL 0.50 - 05/17 MH Lvl 1.40 [place] CHEM PANEL Sodium Lvl 140 meq/L 135 - 145 05/17 [place] CHEM PANEL Potassium 3.7 meq/L 3.5 - 5.1 05/17 MH Lvl [place] CHEM PANEL Albumin Lvl 3.3 g/dL 3.5 - 5.0 05/17 [place] CHEM PANEL Alk Phos 129 unit/L 39 - 136 05/17 [place] CHEM PANEL ALANINE 30 unit/L 0 - 65 05/17 AMINOTRANS [place] RAS HEMATOLOGY MPV 7.3 fL 7.4 - 10.4 05/17 [place] HEMATOLOGY Platelet 281 K/CMM 133 - 450 05/17 [place] HEMATOLOGY RBC X 10x6 5.30 M/CMM 4.70 - 05/17 MH 6.10 [place] HEMATOLOGY WBC X 10x3 10.5 K/CMM 3.7 - 10.4 05/17 [place] HEMATOLOGY Hgb 12.4 g/dL 14.0 - 05/17 MH 18.0 [place] HEMATOLOGY Hct 36.8 % 42.0 - 05/17 MH 54.0 [place] HEMATOLOGY MCV 69.4 fL 80.0 - 05/17 MH 94.0 [place] HEMATOLOGY MCH 23.4 pg 27.0 - 05/17 MH 31.0 [place] HEMATOLOGY MCHC 33.7 g/dL 32.0 - 05/17 MH 36.0 /2015 [place] HEMATOLOGY RDW 17.1 % 11.5 - 05/17 MH 14.5 /2015 [place] HEMATOLOGY aPTT 35.4 s 22.9 - 05/17 35.8 /2015 [place] HEMATOLOGY PROTIME 13.1 s 12.0 - 05/17 MH 14.7 /2015 [place] HEMATOLOGY INR 0.97 0.85 - 05/17 MH 1.17 /2015 [place] HEMATOLOGY Eosinophils 1.1 % 0.0 - 4.0 05/17 [place] HEMAT[facility] Monocytes 6.7 % 2.0 - 12.0 05/17 [place] HEMATOLOG[facility] Segs-Bands # 7.2 K/CMM 1.5 - 8.1 05/17 [place] HEMATOLOGY Basophils 1.1 % 0.0 - 1.0 05/17 [place] [facility]EMAT[facility] Lymphocytes 2.4 K/CMM 1.0 - 5.5 05/17 # /2015 [place] HEMATOLOGY Monocytes # 0.7 K/CMM 0.0 - 0.8 05/17 [place] HEMATOLOG[facility] Eosinophils 0.1 K/CMM 0.0 - 0.5 05/17 # /2015 [place] HEMATOLOGY Microcyte 2+ None Seen 05/17 [place] *ABN* (05/17/16 4:01 PM) HEMATOLOGY Basophils # 0.1 K/CMM 0.0 - 0.2 05/17 [place] HEMATOLOGY Lymphocytes 22.3 % 20.0 - 05/17 40.0 [place] HEMATOLOGY Segs 68.8 % 45.0 - 05/17 75.0 [place] Chest 1view Chest 1view Portable chest: The cardiomediastinal silhouette and pulmonary vasculature are within normal limits. The lungs and pleural spaces are clear. There are no acute osseous abnormalities. There is no significant change compared to 05/05/2016. 05/17 - [facility] DX DX /2015 - [place] IMPRESSION: Read by: Rizwan Barnhart MD Dictated Date/time: 05/17/16 16:37 Electronically Signed by: Rizwan Barnhart MD 05/17/16 16:38 FINAL REPORT No acute radiographic abnormality in the chest. [id number] CARDIAC Troponin-I null 0.00 - 05/06 ENZYMES 0.40 [place] HEMATOLOG[facility] aPTT 50.1 s 22.9 - 05/06 MH 35.8 2016 [place] ELECTROLYTE AGAP 10.8 meq/L 10.0 - 05/06 S 20.0 [place] ELECTROLYTE CO2 28 meq/L 24 - 32 05/06 S [place] ELECTROLYTE Chloride Lvl 105 meq/L 95 - 109 05/06 S [place] ELECTROLYTE Calcium Lvl 8.7 mg/dL 8.5 - 10.5 05/06 S [place] ELECTROLYTE eGFR 103 05/06 Result Comment: The [...] is not recommended in the following populations: [address] Individuals with unstable creatinine concentrations, including [...] 123 mg/dL 70 - 99 05/06 S [place] ELECTROLYTE Creatinine 0.86 mg/dL 0.50 - 05/06 S Lvl 1.40 [place] ELECTROLYTE BUN 18 mg/dL 7 - 22 05/06 S [place] ELECTROLYTE Potassium 3.8 meq/L 3.5 - 5.1 05/06 S Lvl [place] ELECTROLYTE Sodium Lvl 140 meq/L 135 - 145 05/06 S [place] HEMATOLOGY Microcyte 2+ None Seen 05/06 [place] *ABN* (05/06/16 2:42 AM) HEMATOLOGY Eosinophils 0.2 K/CMM 0.0 - 0.5 05/06 # /2015 [place] HEMATOLOGY Monocytes # 0.8 K/CMM 0.0 - 0.8 05/06 [place] HEMATOLOGY Monocytes 7.9 % 2.0 - 12.0 05/06 [place] HEMATOLOGY Lymphocytes 2.5 K/CMM 1.0 - 5.5 05/06 MH # /2016 [place] HEMATOLOGY Segs-Bands # 6.5 K/CMM 1.5 - 8.1 05/06 [place] HEMATOLOGY Basophils 0.4 % 0.0 - 1.0 05/06 MH [place] HEMATOLOGY Eosinophils 1.7 % 0.0 - 4.0 05/06 /2015 [place] HEMATOLOGY Lymphocytes 24.8 % 20.0 - 05/06 MH 40.0 [place] HEMATOLOGY Segs 65.2 % 45.0 - 05/06 MH 75.0 [place] HEMATOLOGY RBC X 10x6 5.11 M/CMM 4.70 - 05/06 MH 6.10 [place] HEMATOLOGY Hct 36.2 % 42.0 - 05/06 MH 54.0 [place] HEMATOLOGY Hgb 11.8 g/dL 14.0 - 05/06 MH 18.0 [place] HEMATOLOGY Platelet 272 K/CMM 133 - 450 05/06 [place] HEMATOLOGY RDW 17.1 % 11.5 - 05/06 14. [place] HEMATOLOGY MPV 7.8 fL 7.4 - 10.4 05/06 /2015 [place] HEMATOLOGY WBC X 10x3 9.9 K/CMM 3.7 - 10.4 05/06 [place] HEMATOLOGY MCHC 32.5 g/dL 32.0 - 05/06 MH 36.0 [place] HEMATOLOGY MCH 23.0 pg 27.0 - 05/06 31.0 [place] HEMATOLOGY MCV 70.8 fL 80.0 - 05/06 94.0 [place] HEMATOLOGY PROTIME 13.4 s 12.0 - 05/06 14. [place] HEMATOLOGY INR 1.00 0.85 - 05/06 MH 1.17 [place] HEMATOLOGY aPTT 49.1 s 22.9 - 05/06 35.8 [place] URINE AND UA Bacteria None Seen None Seen 05/06 STOOL [place] (05/05/16 10:09 PM) URINE AND UA Blood Negative Negative 05/06 STOOL [place] (05/05/16 10:09 PM) URINE AND UA RBC 0-2 /HPF 0 - 2 05/06 [place] URINE AND UA WBC None Seen None Seen 05/06 STOOL [place] (05/05/16 10:09 PM) URINE AND UA Sq Epi None Seen Few 05/06 STOOL [place] (05/05/16 10:09 PM) URINE AND UA Leuk Est Negative Negative 05/06 STOOL [place] (05/05/16 10:09 PM) URINE AND UA 0.2 EU/dL 0.1 - 1.0 05/06 STOOL Urobilinogen [place] URINE AND UA Nitrite Negative Negative 05/06 STOOL [place] (05/05/16 10:09 PM) URINE AND UA Color Yellow Yellow 05/06 [place] *NA* (05/05/16 10:09 PM) URINE AND UA Glucose Negative Negative 05/06 STOOL [place] (05/05/16 10:09 PM) URINE AND UA Bili Negative Negative 05/06 [place] *NA* (05/05/16 10:09 PM) URINE AND UA Ketones Negative Negative 05/06 [place] *NA* (05/05/16 10:09 PM) URINE AND UA Protein Negative Negative 05/06 STOOL [place] (05/05/16 10:09 PM) URINE AND UA pH 6.0 5.0 - 8.0 05/06 [place] URINE AND UA Turbidity Clear Clear 05/06 [place] (05/05/16 10:09 PM) URINE AND UA Spec Grav >=1.030 <=1.030 05/06 [place] *ABN* (05/05/16 10:09 PM) BACTERIAL - MRSA by PCR Negative 05/06 SEROLOGY [place] (05/05/16 10:06 PM) HEMATOLOGY Basophils # 0.1 K/CMM 0.0 - 0.2 05/06 [place] HEMATOLOGY Microcyte 2+ None Seen 05/06 [place] *ABN* (05/05/16 9:38 PM) HEMATOLOGY Eosinophils 1.4 % 0.0 - 4.0 05/06 [place] HEMATOLOGY Basophils 0.7 % 0.0 - 1.0 05/06 [place] HEMATOLOGY Segs-Bands # 7.1 K/CMM 1.5 - 8.1 05/06 /2015 [place] HEMATOLOGY Lymphocytes 24.8 % 20.0 - 05/06 MH 40.0 /2015 [place] HEMATOLOGY Monocytes 7.9 % 2.0 - 12.0 05/06 /2015 [place] HEMATOLOGY Monocytes # 0.9 K/CMM 0.0 - 0.8 05/06 /2015 [place] HEMATOLOGY Eosinophils 0.2 K/CMM 0.0 - 0.5 05/06 MH # /2015 [place] HEMATOLOGY Lymphocytes 2.7 K/CMM 1.0 - 5.5 05/06 MH # /2015 [place] HEMATOLOGY Segs 65.2 % 45.0 - 05/06 MH 75.0 /2015 [place] HEMATOLOGY MCV 69.7 fL 80.0 - 05/06 MH 94.0 [place] HEMATOLOGY MCH 23.3 pg 27.0 - 05/06 MH 31.0 [place] HEMATOLOGY Hgb 12.2 g/dL 14.0 - 05/06 MH 18.0 [place] HEMATOLOGY Hct 36.5 % 42.0 - 05/06 MH 54.0 [place] HEMATOLOGY MCHC 33.4 g/dL 32.0 - 05/06 MH 36.0 [place] HEMATOLOGY Platelet 276 K/CMM 133 - 450 05/06 /2015 [place] HEMATOLOGY MPV 7.2 fL 7.4 - 10.4 05/06 /2015 [place] HEMATOLOGY RDW 17.5 % 11.5 - 05/06 MH 14. [place] HEMATOLOGY WBC X 10x3 11.0 K/CMM 3.7 - 10.4 05/06 [place] HEMATOLOGY RBC X 10x6 5.24 M/CMM 4.70 - 05/06 MH 6.10 [place] HEMATOLOGY INR 1.05 0.85 - 05/06 MH 1.17 [place] HEMATOLOGY PROTIME 13.9 s 12.0 - 05/06 14. [place] HEMATOLOGY aPTT 35.3 s 22.9 - 05/06 MH 35.8 [place] CARDIAC CK-MB INDEX 1.0 0.0 - 2.5 05/05 ENZYMES /2015 [place] CARDIAC CK MB 0.8 ng/mL 0.5 - 3.6 05/05 ENZYMES /2015 [place] CARDIAC Total CK 80 unit/L 12 - 191 05/05 ENZYMES [place] CARDIAC Troponin-I null 0.00 - 05/05 ENZYMES 0.40 [place] CHEM PANEL Alk Phos 133 unit/L 39 - 136 05/05 [place] CHEM PANEL Glucose Lvl 137 mg/dL 70 - 99 05/05 [place] CHEM PANEL BUN 17 mg/dL 7 - 22 05/05 [place] CHEM PANEL Creatinine 1.01 mg/dL 0.50 - 05/05 MH Lvl 1.40 [place] CHEM PANEL Sodium Lvl 139 meq/L 135 - 145 05/05 [place] CHEM PANEL ALANINE 34 unit/L 0 - 65 05/05 AMINOTRANSFE [place] RASE CHEM PANEL Albumin Lvl 3.3 g/dL 3.5 - 5.0 05/05 [place] CHEM PANEL Chloride Lvl 105 meq/L 95 - 109 05/05 [place] CHEM PANEL eGFR 88 05/05 Result Comment: [...] is not recommended in the following populations: [address] Individuals with unstable creatinine concentrations, including [...] Total 0.4 mg/dL 0.2 - 1.3 05/05 [place] CHEM PANEL Calcium Lvl 8.6 mg/dL 8.5 - 10.5 05/05 [place] CHEM PANEL Potassium 3.7 meq/L 3.5 - 5.1 05/05 Lvl [place] CHEM PANEL CO2 28 meq/L 24 - 32 05/05 [place] CHEM PANEL Total 7.8 g/dL 6.4 - 8.4 05/05 [place] CHEM PANEL ASPARTATE 16 unit/L 0 - 37 05/05 [place] CHEM PANEL AGAP 9.7 meq/L 10.0 - 05/05 MH 20.0 [place] CHEM PANEL B/C Ratio 17 6 - 25 05/05 [place] CHEM PANEL Globulin 4.5 g/dL 2.7 - 4.2 05/05 [place] CHEM PANEL A/G Ratio 0.7 0.7 - 1.6 05/05 [place] HEMATOLOGY Monocytes # 0.8 K/CMM 0.0 - 0.8 05/05 [place] HEMATOLOGY Eosinophils 0.1 K/CMM 0.0 - 0.5 05/05 # [place] HEMATOLOGY Basophils # 0.1 K/CMM 0.0 - 0.2 05/05 [place] HEMATOLOGY Microcyte 2+ None Seen 05/05 [place] *ABN* (05/05/16 5:11 PM) HEMATOLOGY Monocytes 7.5 % 2.0 - 12.0 05/05 [place] HEMATOLOGY Eosinophils 1.1 % 0.0 - 4.0 05/05 [place] HEMATOLOGY Basophils 0.7 % 0.0 - 1.0 05/05 [place] HEMATOLOGY Segs-Bands # 7.5 K/CMM 1.5 - 8.1 05/05 [place] HEMATOLOGY Lymphocytes 2.1 K/CMM 1.0 - 5.5 05/05 [place] HEMATOLOGY Lymphocytes 19.9 % 20.0 - 05/05 MH 40.0 [place] HEMATOLOGY Segs 70.8 % 45.0 - 05/05 MH 75.0 [place] HEMATOLOGY Platelet 306 K/CMM 133 - 450 05/05 [place] HEMATOLOGY MCHC 33.6 g/dL 32.0 - 05/05 MH 36.0 [place] HEMATOLOGY MPV 7.3 fL 7.4 - 10.4 05/05 [place] HEMATOLOGY RDW 16.9 % 11.5 - 05/05 MH 14. [place] HEMATOLOGY MCV 69.5 fL 80.0 - 05/05 MH 94.0 [place] HEMATOLOGY MCH 23.4 pg 27.0 - 05/05 MH 31.0 [place] HEMATOLOGY Hct 37.4 % 42.0 - 05/05 MH 54.0 [place] HEMATOLOGY Hgb 12.6 g/dL 14.0 - 05/05 MH 18.0 [place] HEMATOLOGY WBC X 10x3 10.6 K/CMM 3.7 - 10.4 05/05 [place] HEMATOLOGY RBC X 10x6 5.39 M/CMM 4.70 - 05/05 MH 6.10 [place] Chest 1view Chest 1view EXAM: Chest 1view DX 05/05 - [facility] DX DX /2015 - [place] DATE: 05/05/2016 4:55 PM HOSPITAL AIDE INDICATION: Chest pain Read by: Tito Farnsworth MD Dictated Date/time: 05/05/16 17:34 COMPARISON: 03/05/2016. Electronically Signed by: Tito Farnsworth MD 05/05/16 17:34 FINAL REPORT IMPRESSION: Stable mildly enlarged cardiac silhouette. Atherosclerotic thoracic aorta. No focal consolidation, significant pleural effusion or pneumothorax. SL: [id number] CHEM PANEL Globulin 4.2 g/dL 2.7 - 4.2 04/25 [place] CHEM PANEL B/C Ratio 19 6 - 25 04/25 [place] CHEM PANEL AGAP 9.9 meq/L 10.0 - 04/25 20.0 [place] CHEM PANEL A/G Ratio 0.8 0.7 - 1.6 04/25 [place] CHEM PANEL eGFR 100 04/25 Result Comment: [...] is not recommended in the following populations: [address] Individuals with unstable creatinine concentrations, including [...] Phos 128 unit/L 39 - 136 04/25 [place] CHEM PANEL Albumin Lvl 3.4 g/dL 3.5 - 5.0 04/25 [place] CHEM PANEL ALANINE 30 unit/L 0 - 65 04/25 AMINOTRANSFE [place] RASE CHEM PANEL Total 7.6 g/dL 6.4 - 8.4 04/25 Protein [place] CHEM PANEL Bili Total 0.3 mg/dL 0.2 - 1.3 04/25 [place] CHEM PANEL ASPARTATE 14 unit/L 0 - 37 04/25 TRANSAMINASE [place] CHEM PANEL CO2 26 meq/L 24 - 32 04/25 [place] CHEM PANEL Calcium Lvl 8.7 mg/dL 8.5 - 10.5 04/25 [place] CHEM PANEL Chloride Lvl 104 meq/L 95 - 109 04/25 [place] CHEM PANEL Potassium 3.9 meq/L 3.5 - 5.1 04/25 MH Lvl /2015 [place] CHEM PANEL Glucose Lvl 221 mg/dL 70 - 99 04/25 [place] CHEM PANEL Sodium Lvl 136 meq/L 135 - 145 04/25 [place] CHEM PANEL Creatinine 0.91 mg/dL 0.50 - 04/25 MH Lvl 1.40 [place] CHEM PANEL BUN 17 mg/dL 7 - 22 04/25 [place] HEMATOLOGY RBC X 10x6 5.40 M/CMM 4.70 - 04/25 MH 6.10 [place] HEMATOLOGY WBC X 10x3 10.3 K/CMM 3.7 - 10.4 04/25 [place] HEMATOLOGY Hgb 12.9 g/dL 14.0 - 04/25 MH 18.0 [place] HEMATOLOGY MPV 7.2 fL 7.4 - 10.4 04/25 [place] HEMATOLOGY RDW 16.8 % 11.5 - 04/25 MH 14. [place] HEMATOLOGY Platelet 313 K/CMM 133 - 450 04/25 [place] HEMATOLOGY MCH 23.8 pg 27.0 - 04/25 MH 31.0 [place] HEMATOLOGY MCHC 34.0 g/dL 32.0 - 04/25 36.0 /2015 [place] HEMATOLOGY Hct 37.9 % 42.0 - 04/25 MH 54.0 /2015 [place] HEMATOLOGY MCV 70.1 fL 80.0 - 04/25 94.0 /2015 [place] HEMATOLOGY Lymphocytes 2.3 K/CMM 1.0 - 5.5 04/25 MH # /2016 [place] HEMATOLOGY Eosinophils 0.1 K/CMM 0.0 - 0.5 04/25 # /2015 [place] HEMATOLOGY Monocytes # 0.6 K/CMM 0.0 - 0.8 04/25 [place] HEMATOLOGY Basophils # 0.1 K/CMM 0.0 - 0.2 04/25 [place] HEMATOLOGY Microcyte 2+ None Seen 04/25 [place] *ABN* (04/25/16 6:17 PM) HEMATOLOGY Segs 69.2 % 45.0 - 04/25 MH 75.0 /2015 [place] HEMATOLOGY Segs-Bands # 7.1 K/CMM 1.5 - 8.1 04/25 [place] HEMATOLOGY Monocytes 6.1 % 2.0 - 12.0 04/25 [place] HEMATOLOGY Basophils 1.1 % 0.0 - 1.0 04/25 [place] HEMATOLOGY Eosinophils 1.1 % 0.0 - 4.0 04/25 [place] HEMATOLOGY Lymphocytes 22.5 % 20.0 - 04/25 40.0 /2016 [place] URINE AND UA WBC 0-2 /HPF None Seen 04/25 STOOL /HPF [place] URINE AND UA RBC 0-2 /HPF 0 - 2 04/25 STOOL [place] URINE AND UA Bacteria Occasional None Seen 04/25 STOOL /HPF /HPF [place] URINE AND UA Leuk Est Negative Negative 04/25 STOOL [place] (04/25/16 6:17 PM) URINE AND UA Sq Epi Occasional Few /LPF 04/25 STOOL /LPF /2015 [place] URINE AND UA pH 6.0 5.0 - 8.0 04/25 [place] URINE AND UA Protein Negative Negative 04/25 STOOL [place] (04/25/16 6:17 PM) URINE AND UA Glucose 250 mg/dL Negative 04/25 STOOL mg/dL /2015 [place] URINE AND UA Ketones Negative Negative 04/25 STOOL [place] *NA* (04/25/16 6:17 PM) URINE AND UA Bili Negative Negative 04/25 [place] *NA* (04/25/16 6:17 PM) URINE AND UA Blood Negative Negative 04/25 [place] (04/25/16 6:17 PM) URINE AND UA 0.2 EU/dL 0.1 - 1.0 04/25 [facility] Urobilinogen [place] URINE AND UA Nitrite Negative Negative 04/25 STOOL [place] (04/25/16 6:17 PM) URINE AND UA Color Yellow Yellow 04/25 [place] *NA* (04/25/16 6:17 PM) URINE AND UA Turbidity Clear Clear 04/25 [place] (04/25/16 6:17 PM) URINE AND UA Spec Grav 1.020 <=1.030 04/25 [facility] [place] Renal Stone Renal Stone EXAM: CT ABDOMEN AND PELVIS WITHOUT CONTRAST [facility] CT [facility] DATE: 04/25/2016 6:07 PM [...] provided. IV contrast: None. CT Radiation Dose: SQS=1273.51 mGy-cm FINDINGS: Evaluation of the solid organs [...] infrarenal abdominal aorta without aneurysmal dilatation. SL: [id number] CARDIAC Troponin-I null 0.00 - 03/05 MH ENZYMES 0.40 /2015 [place] CARDIAC CK MB 0.8 ng/mL 0.5 - 3.6 03/05 MH ENZYMES /2016 [place] CARDIAC Total CK 60 unit/L - 191 03/05 MH ENZYMES /2016 [place] CARDIAC CK-MB INDEX 1.3 0.0 - 2.5 03/05 MH ENZYMES /2016 [place] CARDIAC Troponin-I null 0.00 - 03/05 MH ENZYMES 0.40 2016 [place] CARDIAC Total CK 66 unit/L - 191 03/05 MH ENZYMES /2016 [place] CARDIAC CK MB 0.6 ng/mL 0.5 - 3.6 03/05 MH ENZYMES /2016 [place] CARDIAC CK-MB INDEX 0.9 0.0 - 2.5 03/05 MH ENZYMES /2016 [place] CHEM PANEL eGFR 103 03/05 Result Comment: [...] is not recommended in the following populations: [address] Individuals with unstable creatinine concentrations, including [...] 12.0 meq/L 10.0 - 09 MH 20.0 [place] CHEM PANEL Globulin 4.4 g/dL 2.7 - 4.2 03/05 [place] CHEM PANEL B/C Ratio 14 6 - 25 03/05 [place] CHEM PANEL A/G Ratio 0.8 0.7 - 1.6 03/05 [place] CHEM PANEL Calcium Lvl 8.8 mg/dL 8.5 - 10.5 03/05 [place] CHEM PANEL Bili Total 0.6 mg/dL 0.2 - 1.3 03/05 [place] CHEM PANEL Total 7.8 g/dL 6.4 - 8.4 03/05 Protein [place] CHEM PANEL ASPARTATE 16 unit/L 0 - 37 03/05 [place] CHEM PANEL Alk Phos 128 unit/L 39 - 136 03/05 [place] CHEM PANEL Glucose Lvl 97 mg/dL 70 - 99 03/05 [place] CHEM PANEL Creatinine 0.88 mg/dL 0.50 - 03/05 MH Lvl 1.40 [place] CHEM PANEL BUN 12 mg/dL 7 - 22 03/05 [place] CHEM PANEL Sodium Lvl 138 meq/L 135 - 145 03/05 [place] CHEM PANEL ALANINE 32 unit/L 0 - 65 03/05 AMINOTRANS [place] RASE CHEM PANEL Albumin Lvl 3.4 g/dL 3.5 - 5.0 03/05 [place] CHEM PANEL Potassium 4.0 meq/L 3.5 - 5.1 03/05 MH Lvl [place] CHEM PANEL Chloride Lvl 105 meq/L 95 - 109 03/05 [place] CHEM PANEL CO2 25 meq/L 24 - 32 03/05 [place] HEMATOLOGY Platelet 294 K/CMM 133 - 450 03/05 [place] HEMATOLOGY MPV 7.4 fL 7.4 - 10.4 03/05 [place] HEMATOLOGY WBC X 10x3 10.0 K/CMM 3.7 - 10.4 03/05 [place] HEMATOLOGY RDW 16.6 % 11.5 - 03/05 MH 14.5 [place] HEMATOLOGY MCH 24.1 pg 27.0 - 03/05 MH 31.0 [place] HEMATOLOGY MCHC 33.4 g/dL 32.0 - 03/05 MH 36.0 [place] HEMATOLOGY MCV 72.2 fL 80.0 - 03/05 MH 94.0 [place] HEMATOLOGY Hct 38.1 % 42.0 - 03/05 MH 54.0 [place] HEMATOLOGY RBC X 10x6 5.28 M/CMM 4.70 - 03/05 MH 6.10 [place] HEMATOLOGY Hgb 12.7 g/dL 14.0 - 03/05 MH 18.0 [place] HEMATOLOGY Microcyte 1+ None Seen 03/05 [place] *ABN* (03/05/16 7:30 AM) HEMATOLOGY Basophils # 0.1 K/CMM 0.0 - 0.2 03/05 [place] HEMATOLOGY Monocytes # 0.7 K/CMM 0.0 - 0.8 03/05 [place] HEMATOLOGY Eosinophils 0.1 K/CMM 0.0 - 0.5 03/05 MH # /2015 [place] HEMATOLOGY Segs-Bands # 7.5 K/CMM 1.5 - 8.1 03/05 [place] HEMATOLOGY Lymphocytes 1.6 K/CMM 1.0 - 5.5 03/05 # /2015 [place] HEMATOLOGY Eosinophils 1.2 % 0.0 - 4.0 03/05 [place] HEMATOLOGY Basophils 0.6 % 0.0 - 1.0 03/05 [place] HEMATOLOGY Segs 75.1 % 45.0 - 03/05 MH 75.0 [place] HEMATOLOGY Monocytes 7.4 % 2.0 - 12.0 03/05 [place] HEMATOLOGY Lymphocytes 15.7 % 20.0 - 03/05 40.0 [place] Chest 1view Chest 1view Patient Name: ANNABEL MCCONNELL [facility]05 [facility] - [place] : 1970; Age: 45 years y/o Male MR: [id number] Read by: Jason Dozier MD Dictated Date/time: [...] unremarkable. IMPRESSION: 1. No active disease. SL: [id number] URINE AND UA RBC 0-2 /HPF 0 - 2 03/02 [place] URINE AND UA Sq Epi None Seen Few 03/02 [place] (03/02/16 8:22 AM) URINE AND UA WBC None Seen None Seen 03/02 [place] (03/02/16 8:22 AM) URINE AND UA pH 6.0 5.0 - 8.0 03/02 [place] URINE AND UA Protein Negative Negative 03/02 STOOL mg/dL mg/dL [place] URINE AND UA Glucose Negative Negative 03/02 [facility] mg/dL mg/dL [place] URINE AND UA Ketones Negative Negative 03/02 [facility] mg/dL mg/dL [place] URINE AND UA Bili Negative Negative 03/02 [place] *NA* (03/02/16 8:22 AM) URINE AND UA Color Yellow Yellow 03/02 [place] *NA* (03/02/16 8:22 AM) URINE AND UA Turbidity Clear Clear 03/02 [place] (03/02/16 8:22 AM) URINE AND UA Spec Grav 1.015 <=1.030 03/02 [place] URINE AND UA Blood Negative Negative 03/02 [place] (03/02/16 8:22 AM) URINE AND UA 0.2 EU/dL 0.1 - 1.0 03/02 STOOL Urobilinogen [place] URINE AND UA Nitrite Negative Negative 03/02 [place] (03/02/16 8:22 AM) URINE AND UA Leuk Est Negative Negative 03/02 STOOL [place] (03/02/16 8:22 AM) CHEM PANEL A/G Ratio 0.7 0.7 - 1.6 03/02 [place] CHEM PANEL Globulin 4.6 g/dL 2.7 - 4.2 03/02 [place] CHEM PANEL B/C Ratio 16 6 - 25 03/02 [place] CHEM PANEL AGAP 10.4 meq/L 10.0 - 03/02 MH 20.0 [place] CHEM PANEL Total 8.0 g/dL 6.4 - 8.4 03/02 Protein [place] CHEM PANEL Bili Total 0.3 mg/dL 0.2 - 1.3 03/02 [place] CHEM PANEL Calcium Lvl 8.7 mg/dL 8.5 - 10.5 03/02 [place] CHEM PANEL CO2 26 meq/L 24 - 32 03/02 [place] CHEM PANEL Chloride Lvl 106 meq/L 95 - 109 03/02 [place] CHEM PANEL Sodium Lvl 138 meq/L 135 - 145 03/02 [place] CHEM PANEL Potassium 4.4 meq/L 3.5 - 5.1 03/02 Lv [place] CHEM PANEL eGFR 83 03/02 Result Comment: [...] is not recommended in the following populations: [place] 3m2 Individuals with unstable creatinine concentrations, including [...] ASPARTATE 13 unit/L 0 - 37 03/02 [place] CHEM PANEL Creatinine 1.07 mg/dL 0.50 - 03/02 MH Lvl 1.40 /2015 [place] CHEM PANEL BUN 17 mg/dL 7 - 22 03/02 [place] CHEM PANEL Glucose Lvl 106 mg/dL 70 - 99 03/02 [place] CHEM PANEL Alk Phos 127 unit/L 39 - 136 03/02 [place] CHEM PANEL Albumin Lvl 3.4 g/dL 3.5 - 5.0 03/02 [place] CHEM PANEL ALANINE 33 unit/L 0 - 65 03/02 AMINOTRANSFE /2015 [place] RASE CHEM PANEL Lipase Lvl 164 unit/L 73 - 393 03/02 [place] HEMATOLOGY Basophils # 0.1 K/CMM 0.0 - 0.2 03/02 [place] HEMATOLOGY Microcyte 1+ None Seen 03/02 [place] *ABN* (03/02/16 5:41 AM) HEMATOLOGY Monocytes 6.7 % 2.0 - 12.0 03/02 [place] HEMATOLOGY Lymphocytes 21.9 % 20.0 - 03/02 MH 40.0 [place] HEMATOLOGY Eosinophils 1.5 % 0.0 - 4.0 03/02 [place] HEMATOLOGY Segs 69.1 % 45.0 - 03/02 75.0 [place] HEMATOLOGY Monocytes # 0.8 K/CMM 0.0 - 0.8 03/02 [place] HEMATOLOGY Lymphocytes 2.6 K/CMM 1.0 - 5.5 03/02 MH # [place] HEMATOLOGY Eosinophils 0.2 K/CMM 0.0 - 0.5 03/02 MH [place] HEMATOLOGY Segs-Bands # 8.1 K/CMM 1.5 - 8.1 03/02 [place] HEMATOLOGY Basophils 0.8 % 0.0 - 1.0 03/02 [place] HEMATOLOGY WBC X 10x3 11.8 K/CMM 3.7 - 10.4 03/02 [place] HEMATOLOGY Hct 37.4 % 42.0 - 03/02 MH 54.0 [place] HEMATOLOGY RBC X 10x6 5.18 M/CMM 4.70 - 03/02 MH 6.10 [place] HEMATOLOGY Hgb 12.5 g/dL 14.0 - 03/02 MH 18.0 /2015 [place] HEMATOLOGY MCH 24.1 pg 27.0 - 03/02 MH 31.0 /2015 [place] HEMATOLOGY RDW 16.7 % 11.5 - 03/02 MH 14.5 /2015 [place] HEMATOLOGY MCHC 33.4 g/dL 32.0 - 03/02 MH 36.0 /2015 [place] HEMATOLOGY MCV 72.1 fL 80.0 - 03/02 94.0 /2015 [place] HEMATOLOGY MPV 7.7 fL 7.4 - 10.4 03/02 [place] HEMATOLOGY Platelet 303 K/CMM 133 - 450 03/02 [place] Chest/Abdom Chest/Abdome CT THORAX/ABDOMEN/PELVIS WITH IV CONTRAST WITH SAGITTAL AND CORONAL REFORMATTED IMAGES 03/02 - [facility] en/Pelvis w n/Pelvis w - [place] IV contrast IV contrast CT CT HISTORY: [...] colonic diverticulosis, small abdominal aortic aneurysm. SL: [id number] Abdomen RUQ Abdomen RUQ ULTRASOUND ABDOMEN RIGHT UPPER QUADRANT 03/02 - [facility] US US /2015 - [place] HISTORY: Abdominal pain, acute; right flank pain [...] steatosis. 2. Otherwise normal abdominal ultrasound. SL: [id number] Renal Stone Renal Stone Patient Name: ANNABEL MCCONNELL 03/02 [facility] CT CT /2015 [facility] : 1970; Age: 45 years y/o Male MR: [id number] Read by: John Paul Carrero MD Dictated Date/time: 03/02/16 05:55 Electronically Signed by: John Paul Carrero MD 03/02/16 05:59 FINAL REPORT Study: Renal Stone CT 03/02/2016 5:25 AM CDT Ordering Physician: Clinical Indication: Abdominal pain, acute; Comparison: None TECHNIQUE: Noncontrasted helical imaging was performed from the kidneys through the symphysis as a renal stone protocol. Multiplanar reformations are available. CT Radiation Dose: WKO=[id number] mGy-cm FINDINGS: This examination is limited for [...] - 5.1 02/18 MH S Lvl /2015 [place] ELECTROLYTE Chloride Lvl 104 meq/L 95 - 109 02/18 S [place] ELECTROLYTE Sodium Lvl 136 meq/L 135 - 145 02/18 MH S /2015 [place] ELECTROLYTE Glucose Lvl 147 mg/dL 70 - 99 02/18 MH S [place] ELECTROLYTE Creatinine 0.88 mg/dL 0.50 - 02/18 MH S Lvl 1.40 [place] ELECTROLYTE BUN 10 mg/dL 7 - 22 02/18 MH S /2015 [place] ELECTROLYTE eGFR 103 02/18 Result Comment: The [...] is not recommended in the following populations: [place] 3m2 Individuals with unstable creatinine concentrations, including [...] 8.5 - 10.5 02/18 MH S /2015 [place] ELECTROLYTE CO2 24 meq/L 24 - 32 02/18 MH S /2015 [place] ELECTROLYTE AGAP 12.4 meq/L 10.0 - 02/18 MH S 20.0 [place] HEMATOLOGY RDW 16.3 % 11.5 - 02/18 MH 14. [place] HEMATOLOGY Platelet 273 K/CMM 133 - 450 02/18 [place] HEMATOLOGY MPV 7.5 fL 7.4 - 10.4 02/18 [place] HEMATOLOGY Hgb 12.8 g/dL 14.0 - 02/18 MH 18.0 [place] HEMATOLOGY RBC X 10x6 5.31 M/CMM 4.70 - 02/18 MH 6.10 [place] HEMATOLOGY WBC X 10x3 11.1 K/CMM 3.7 - 10.4 02/18 [place] HEMATOLOGY MCV 72.6 fL 80.0 - 02/18 MH 94.0 [place] HEMATOLOGY Hct 38.6 % 42.0 - 02/18 MH 54.0 [place] HEMATOLOGY MCH 24.1 pg 27.0 - 02/18 MH 31.0 [place] HEMATOLOGY MCHC 33.1 g/dL 32.0 - 02/18 MH 36.0 [place] CARDIAC Troponin-I null 0.00 - 02/17 MH ENZYMES 0.40 [place] HEMATOLOGY Monocytes 7.9 % 2.0 - 12.0 02/17 [place] HEMATOLOGY Lymphocytes 20.8 % 20.0 - 02/17 MH 40.0 [place] HEMATOLOGY Segs 69.1 % 45.0 - 02/17 MH 75.0 [place] HEMATOLOGY Lymphocytes 2.2 K/CMM 1.0 - 5.5 02/17 MH /2015 [place] HEMATOLOGY Monocytes # 0.8 K/CMM 0.0 - 0.8 02/17 [place] HEMATOLOGY Eosinophils 1.6 % 0.0 - 4.0 02/17 [place] HEMATOLOGY Segs-Bands # 7.5 K/CMM 1.5 - 8.1 02/17 [place] HEMATOLOGY Basophils 0.6 % 0.0 - 1.0 02/17 [place] HEMATOLOGY Microcyte 1+ None Seen 02/17 [place] *ABN* (02/18/16 5:20 AM) HEMATOLOGY Basophils # 0.1 K/CMM 0.0 - 0.2 02/17 [place] HEMATOLOGY Eosinophils 0.2 K/CMM 0.0 - 0.5 02/17 MH # /2015 [place] HEMATOLOGY RBC X 10x6 4.91 M/CMM 4.70 - 02/17 MH 6.10 [place] HEMATOLOGY WBC X 10x3 10.8 K/CMM 3.7 - 10.4 02/17 [place] HEMATOLOGY MCH 24.1 pg 27.0 - 02/17 MH 31.0 [place] HEMATOLOGY MCV 73.1 fL 80.0 - 02/17 MH 94.0 [place] HEMATOLOGY Hct 35.9 % 42.0 - 02/17 MH 54.0 [place] HEMATOLOGY Hgb 11.8 g/dL 14.0 - 02/17 MH 18.0 [place] HEMATOLOGY MPV 7.4 fL 7.4 - 10.4 02/17 [place] HEMATOLOGY RDW 16.3 % 11.5 - 02/17 14.5 [place] HEMATOLOGY MCHC 33.0 g/dL 32.0 - 02/17 MH 36.0 [place] HEMATOLOGY Platelet 270 K/CMM 133 - 450 02/17 [place] CARDIAC Troponin-I null 0.00 - 02/16 ENZYMES 0. [place] CHEM PANEL Procalcitoni null 0.00 - 02/16 n Lvl 0.10 [place] CARDIAC Troponin-I null 0.00 - 02/16 ENZYMES 0.40 [place] URINE AND UA Bacteria None Seen None Seen 02/16 STOOL /2015 [place] (02/17/16 6:27 AM) URINE AND UA RBC None Seen 0 - 2 02/16 STOOL /2015 [place] (02/17/16 6:27 AM) URINE AND UA Mucus Few /LPF None Seen 02/16 STOOL /LPF /2015 [place] URINE AND UA Sq Epi Rare /LPF Few /LPF 02/16 STOOL [place] URINE AND UA WBC 0-2 /HPF None Seen 02/16 STOOL /HPF /2015 [place] URINE AND UA Leuk Est Negative Negative 02/16 STOOL /2015 [place] (02/17/16 6:27 AM) URINE AND UA 0.2 EU/dL 0.1 - 1.0 02/16 STOOL Urobilinogen [place] URINE AND UA Nitrite Negative Negative 02/16 STOOL [place] (02/17/16 6:27 AM) URINE AND UA Spec Grav 1.025 <=1.030 02/16 STOOL [place] URINE AND UA Turbidity Clear Clear 02/16 STOOL [place] (02/17/16 6:27 AM) URINE AND UA Color Yellow Yellow 02/16 STOOL [place] *NA* (02/17/16 6:27 AM) URINE AND UA Bili Negative Negative 02/16 STOOL [place] *NA* (02/17/16 6:27 AM) URINE AND UA Blood Negative Negative 02/16 STOOL [place] (02/17/16 6:27 AM) URINE AND UA Ketones Negative Negative 02/16 STOOL mg/dL mg/dL [place] URINE AND UA Glucose Negative Negative 02/16 STOOL mg/dL mg/dL [place] URINE AND UA pH 6.0 5.0 - 8.0 02/16 STOOL [place] URINE AND UA Protein Negative Negative 02/16 STOOL mg/dL mg/dL [place] CARDIAC CK-MB INDEX 1.6 0.0 - 2.5 02/16 ENZYMES [place] CARDIAC CK MB 0.9 ng/mL 0.5 - 3.6 02/16 ENZYMES [place] CARDIAC Total CK 58 unit/L 12 - 191 02/16 ENZYMES [place] CHEM PANEL eGFR 93 02/16 Result Comment: [...] is not recommended in the following populations: [place] 3m2 Individuals with unstable creatinine concentrations, including [...] 33 unit/L 0 - 65 02/16 [facility]IN[facility] [place] RASE CHEM PANEL CO2 23 meq/L 24 - 32 02/16 [place] CHEM PANEL Calcium Lvl 8.8 mg/dL 8.5 - 10.5 02/16 [place] CHEM PANEL Potassium 4.0 meq/L 3.5 - 5.1 02/16 MH Lvl [place] CHEM PANEL Chloride Lvl 105 meq/L 95 - 109 02/16 [place] CHEM PANEL Creatinine 0.97 mg/dL 0.50 - 02/16 MH Lvl 1.40 [place] CHEM PANEL Glucose Lvl 103 mg/dL 70 - 99 02/16 [place] CHEM PANEL BUN 11 mg/dL 7 - 22 02/16 [place] CHEM PANEL Albumin Lvl 3.4 g/dL 3.5 - 5.0 02/16 [place] CHEM PANEL Alk Phos 128 unit/L 39 - 136 02/16 [place] CHEM PANEL Bili Total 0.5 mg/dL 0.2 - 1.3 02/16 [place] CHEM PANEL Sodium Lvl 139 meq/L 135 - 145 02/16 [place] CHEM PANEL AGAP 15.0 meq/L 10.0 - 02/16 MH 20.0 [place] CHEM PANEL B/C Ratio 11 6 - 25 02/16 [place] CHEM PANEL Total 8.0 g/dL 6.4 - 8.4 02/16 [place] CHEM PANEL ASPARTATE 16 unit/L 0 - 37 02/16 [place] CHEM PANEL Globulin 4.6 g/dL 2.7 - 4.2 02/16 [place] CHEM PANEL A/G Ratio 0.7 0.7 - 1.6 02/16 [place] HEMATOLOGY Microcyte 1+ None Seen 02/16 [place] *ABN* (02/17/16 5:50 AM) HEMATOLOGY Basophils # 0.1 K/CMM 0.0 - 0.2 02/16 [place] HEMATOLOGY Basophils 0.5 % 0.0 - 1.0 02/16 [place] HEMATOLOGY Lymphocytes 2.4 K/CMM 1.0 - 5.5 02/16 MH # /2015 [place] HEMATOLOGY Monocytes # 0.8 K/CMM 0.0 - 0.8 02/16 [place] HEMATOLOGY Eosinophils 0.1 K/CMM 0.0 - 0.5 02/16 MH # /2015 [place] HEMATOLOGY Segs-Bands # 8.7 K/CMM 1.5 - 8.1 02/16 [place] HEMATOLOGY Eosinophils 1.2 % 0.0 - 4.0 02/16 [place] HEMATOLOGY Segs 72.1 % 45.0 - 02/16 MH 75.0 [place] HEMATOLOGY Lymphocytes 19.8 % 20.0 - 02/16 MH 40.0 [place] HEMATOLOGY Monocytes 6.4 % 2.0 - 12.0 02/16 [place] HEMATOLOGY Platelet 327 K/CMM 133 - 450 02/16 [place] HEMATOLOGY MCH 24.1 pg 27.0 - 02/16 31.0 [place] HEMATOLOGY MCHC 33.3 g/dL 32.0 - 02/16 36.0 [place] HEMATOLOGY MPV 7.6 fL 7.4 - 10.4 02/16 [place] HEMATOLOGY RDW 16.3 % 11.5 - 02/16 14.5 [place] HEMATOLOGY Hgb 13.1 g/dL 14.0 - 02/16 18.0 [place] HEMATOLOGY Hct 39.5 % 42.0 - 02/16 54.0 [place] HEMATOLOGY WBC X 10x3 12.0 K/CMM 3.7 - 10.4 02/16 [place] HEMATOLOGY RBC X 10x6 5.45 M/CMM 4.70 - 02/16 MH 6.10 [place] HEMATOLOGY MCV 72.6 fL 80.0 - 02/16 94.0 [place] Renal Stone Renal Stone Patient Name: ANNABEL MCCONNELL 02/16 - [facility] [place] : 1970; Age: 45 years Male MR: [id number] Read by: Sundar Jeffrey MD Dictated Date/time: 02/17/16 05:53 Electronically Signed by: Sundar Jeffrey MD 02/17/16 06:01 FINAL REPORT Study: Renal Stone CT 02/17/2016 5:26 AM CDT Clinical Indication: Flank Pain. AL. STATED RT. FLANK PAIN AND UPPER CHEST [...] small left renal cyst. 7. Cardiomegaly. SL: [id number] Chest 1view Chest 1view Patient Name: ANNABEL MCCONNELL 02/16 [facility] DX DX [place] : 1970; Age: 45 years y/o Male MR: [id number] Read by: Jaun Guillermo MD Dictated Date/time: [...] Date Comments Source Respitory Rate 18 05/17/2016 [facility] Temperature Oral (F) 98.1 F 05/17/2016 [facility] Heart Rate 72 05/17/2016 [facility] Systolic (mm Hg) 116 05/17/2016 [facility] Diastolic (mm Hg) 76 05/17/2016 [facility] Weight 128.636 05/17/2016 [facility] Temperature Oral (F) 97.6 F 05/17/2016 [facility] Respitory Rate 16 05/17/2016 [facility] Heart Rate 79 05/17/2016 [facility] Systolic (mm Hg) 100 05/17/2016 [facility] Diastolic (mm Hg) 69 05/17/2016 [facility] Respitory Rate 16 05/06/2016 [facility] Systolic (mm Hg) 134 05/06/2016 [facility] Diastolic (mm Hg) 84 05/06/2016 [facility] Heart Rate 61 05/06/2016 [facility] Temperature Oral (F) 97.9 F 05/06/2016 [facility] Respitory Rate 14 05/06/2016 [facility] Temperature Oral (F) 97.4 F 05/06/2016 [facility] Systolic (mm Hg) 117 05/06/2016 [facility] Diastolic (mm Hg) 77 05/06/2016 [facility] Respitory Rate 18 05/06/2016 [facility] Heart Rate 56 05/06/2016 [facility] Systolic (mm Hg) 120 05/06/2016 [facility] Diastolic (mm Hg) 77 05/06/2016 [facility] Heart Rate 62 05/06/2016 [facility] Temperature Oral (F) 97.9 F 05/06/2016 [facility] Weight 131.7 05/06/2016 [facility] BMI Calculated 41.66 05/06/2016 [facility] Height 177.8 cm 05/06/2016 [facility] Weight 127.273 05/05/2016 [facility] Systolic (mm Hg) 118 04/26/2016 [facility] Diastolic (mm Hg) 64 04/26/2016 [facility] Respitory Rate 18 04/26/2016 [facility] Heart Rate 78 04/26/2016 [facility] Temperature Oral (F) 97.4 F 04/26/2016 [facility] Weight 128.182 04/25/2016 [facility] BMI Calculated 40.55 04/25/2016 [facility] Height 177.8 cm 04/25/2016 [facility] Respitory Rate 18 04/25/2016 [facility] Temperature Oral (F) 97.2 F 04/25/2016 [facility] Heart Rate 80 04/25/2016 [facility] Systolic (mm Hg) 137 04/25/2016 [facility] Diastolic (mm Hg) 85 04/25/2016 [facility] Temperature Oral (F) 98.7 F 03/05/2016 [facility] Respitory Rate 16 03/05/2016 [facility] Systolic (mm Hg) 127 03/05/2016 [facility] Diastolic (mm Hg) 68 03/05/2016 [facility] Respitory Rate 16 03/05/2016 [facility] Systolic (mm Hg) 124 03/05/2016 [facility] Diastolic (mm Hg) 76 03/05/2016 [facility] Systolic (mm Hg) 127 03/05/2016 [facility] Diastolic (mm Hg) 77 03/05/2016 [facility] Height 177.8 cm 03/05/2016 [facility] BMI Calculated 40.83 03/05/2016 [facility] Weight 129.091 03/05/2016 [facility] Heart Rate 62 03/05/2016 [facility] Temperature Oral (F) 98.9 F 03/05/2016 [facility] Respitory Rate 18 03/05/2016 [facility] Temperature Oral (F) 98.2 F 03/02/2016 [facility] Heart Rate 58 03/02/2016 [facility] Respitory Rate 16 03/02/2016 [facility] Systolic (mm Hg) 120 03/02/2016 [facility] Diastolic (mm Hg) 66 03/02/2016 [facility] Heart Rate 50 03/02/2016 [facility] Weight 128.636 03/02/2016 [facility] Temperature Oral (F) 98.0 F 03/02/2016 [facility] Respitory Rate 18 03/02/2016 [facility] Systolic (mm Hg) 149 03/02/2016 [facility] Diastolic (mm Hg) 87 03/02/2016 [facility] Heart Rate 69 03/02/2016 [facility] Systolic (mm Hg) 107 02/20/2016 [facility] Diastolic (mm Hg) 66 02/20/2016 [facility] Temperature Oral (F) 98.0 F 02/20/2016 [facility] Respitory Rate 17 02/20/2016 [facility] Heart Rate 81 02/20/2016 [facility] Heart Rate 73 02/19/2016 [facility] Respitory Rate 17 02/19/2016 [facility] Temperature Oral (F) 97.8 F 02/19/2016 [facility] Systolic (mm Hg) 96 02/19/2016 [facility] Diastolic (mm Hg) 63 02/19/2016 [facility] Systolic (mm Hg) 128 02/19/2016 [facility] Diastolic (mm Hg) 84 02/19/2016 [facility] Heart Rate 82 02/19/2016 [facility] Temperature Oral (F) 97.9 F 02/19/2016 [facility] Respitory Rate 17 02/19/2016 [facility] Height 177.8 cm 02/17/2016 [facility] BMI Calculated 40.98 02/17/2016 [facility] Weight 129.545 02/17/2016 [facility] Weight 129.545 02/17/2016 [facility] BMI Calculated 40.98 02/17/2016 [facility] Height 177.8 cm 02/17/2016 [facility] Encounters Location Location Encounter Encounter Reason Attending ADM DC Status Source Details Type Number For Provider Date Date Visit [facility] [id number] [place] 02/16 02/19 Freddy Roberts /2015 [facility] [id number] Fei 03/02 03/02 Freddy Partida /2015 [facility] [id number] Rachel Platt 03/05 03/05 Freddy /2015 [facility] [id number] Agustin 04/25 04/26 Freddy Lopez /2015 [facility] [id number] Geronimo 05/05 05/07 Freddy Dupont /2015 [facility] [id number] Karey 05/17 05/18 Freddy Zuleta /2015 [facility] Procedures Procedure Code Date Perfomer Comments Source Catheterization of [id number] [facility] right heart Lithotripsy [id number] [facility] Placement of stent in [id number] R RCA 100% [facility] cardiac blockage conduit<sup>1</sup>
[2018-01-21] MEDS ORDERED: ASPIRIN 81 MG CHEWABLE TABLET ONE (01:33)
[2018-01-21 01:34] LABS: Absolute Lymphocytes (CBC) 2.6 K/uL (0.7-4.9); Absolute Monocytes 0.9 K/uL (0.1-1.3); Absolute Neutrophil 10.2 K/uL (1.8-8.0); Basophils % 0.4 % (0-1.3); Eosinophils % 0.6 % (0-4.4); Hematocrit 38.2 % (39.6-49.0); Lymphocytes % 18.7 % (15.3-44.8); MCH 26.9 pg (27.0-35.0); MCV 77.8 fL (80-100); MPV 8.3 fL (7.6-11.3); Monocytes % 6.4 % (3.3-12.3)
[2018-01-21] MEDS ORDERED: ONDANSETRON 4 MG/2 ML VIAL ONE (01:34)
[2018-01-21] MEDS ORDERED: KETOROLAC 30 MG/ML INJ ONE (01:34)
[2018-01-21 01:36] LABS: Protime INR 1.64
[2018-01-21] MEDS ORDERED: LORazepam 2 MG/ML VIAL ONE (02:29)
[2018-01-21] MEDS ORDERED: MORPHINE 4 MG/ML SYR ONE (02:30)
[2018-01-21 02:49] LABS: ALT/SGPT 30 U/L (12-78); AST/SGOT 16 U/L (15-37); Albumin 3.3 g/dL (3.4-5.0); Alkaline Phosphatase 137 U/L (45-117); BUN Blood Urea Nitrogen 14 mg/dL (7-18); Bicarbonate 25 mmol/L (21-32); Bilirubin Direct < 0.1 mg/dL (0-0.2); Bilirubin Total 0.3 mg/dL (0.2-1.0); Glucose Level 210 mg/dL (74-106); Magnesium 2.1 mg/dL (1.8-2.4); NT PRO-BNP 21 pg/mL (<125); Potassium 4.1 mmol/L (3.5-5.1); Protein, Total 8.1 g/dL (6.4-8.2); Sodium Level 138 mmol/L (136-145)
--- NOTE | 2018-01-21 03:43 | ER ---
Nurse's Notes [facility] Name: Marquis Nelson Age: 47 yrs Sex: Male : 1970 Arrival Date: 01/21/2018 Time: 00:21 Bed 7 Private MD: Diagnosis: Acute Chest Pain Presentation: 01/21 00:25 Presenting complaint: Patient states: that he is having severe chest pain with fc shortness of breath and nausea. Pt also has an external pacemaker on. Transition of care: patient was not received from another setting of care. Onset of symptoms was January 21, 2018 at 00:00. Risk Assessment: Do you want to hurt yourself or someone else? Patient reports no desire to harm self or others. Initial Sepsis Screen: Does the patient meet any 2 criteria? RR > 20 per min. Yes Does the patient have a suspected source of infection? No. Patient's initial sepsis screen is negative. Care prior to arrival: Medication(s) given: ASA, 81 mg, x 4, Nitroglycerin, 0.4 mg SL x 1. 00:25 Method Of Arrival: EMS: [facility] 00:25 Acuity: THANH 2 fc Historical: - Allergies: 00:36 Beta Blockers (sensitive/hypotension); fc 00:36 Demerol; fc 00:36 Flomax; fc 00:36 tramadol; fc 00:36 Neurontin; fc 00:36 Stadol; fc 00:36 Skelaxin; fc 00:36 Spironolactone; fc - Home Meds: 00:36 allopurinol 300 mg Oral tab 1 tab once daily [Active]; amlodipine 5 mg tab 1 tab once fc daily [Active]; atorvastatin 40 mg Oral tab 1 tab once daily [Active]; clonazepam 1 mg Oral TbDL 2 times per day [Active]; docusate sodium 100 mg Oral tab 2 times per day [Active]; furosemide 80 mg Oral tab 2 times per day [Active]; Inspra 50 mg Oral tab 1 tab 2 times per day [Active]; Lovenox 120 mg/0.8 mL Sub-Q syrg once daily [Active]; metolazone 2.5 mg Oral tab as needed [Active]; metoprolol succinate 6.25mg Oral Tb24 as needed [Active]; Nitrostat SL as needed [Active]; Novolog Sub-Q [Active]; pantoprazole 40 mg oral TbEC 1 tab once daily [Active]; Plavix 75 mg Oral tab 1 tab once daily [Active]; Potassium Chloride 60MEQ Oral 3 times per day [Active]; Ranexa 1,000 mg Oral Tb12 [Active]; Robaxin Oral [Active]; warfarin 10 mg on MWF and 7.5 mg on T,Th,Sat, Sun Oral tab 1 tab once daily [Active]; - PMHx: 00:36 AAA; ADD/ADHD; Anxiety; CHF; Hypertension; Myocardial infarction; Pulmonary Embolism; fc Kidney stones; Anemia; High Cholesterol; GERD; R BUNDLE BRANCH BLOCK; Sleep Apnea; Atrial Fib; - PSHx: 00:36 Heart stents; Hernia repair; Lithotripsy; fc - Immunization history:: Last tetanus immunization: unknown. - Social history:: Smoking status: Patient/guardian denies using tobacco. - Ebola Screening: : Patient negative for fever greater than or equal to 101.5 degrees Fahrenheit, and additional compatible Ebola Virus Disease symptoms Patient denies exposure to infectious person Patient denies travel to an Ebola-affected area in the 21 days before illness onset. - Family history:: not pertinent. - Hospitalizations: : No recent hospitalization is reported. Screenin:29 Abuse screen: Denies threats or abuse. Nutritional screening: No deficits noted. fc Tuberculosis screening: No symptoms or risk factors identified. Fall Risk None identified. Assessment: 00:43 General: Appears uncomfortable, Behavior is appropriate for age, restless. Pain: ea Complains of pain in anterior aspect of left upper chest and mid-sternal area Pain does not radiate. Quality of pain is described as pressure, Pain began 30 min ago. Neuro: Level of Consciousness is awake, alert, obeys commands, Oriented to person, place, time, situation. Cardiovascular: Heart tones S1 S2 present Patient's skin is warm and dry. Respiratory: Airway is patent Respiratory effort is even, unlabored, Respiratory pattern is regular, symmetrical, Breath sounds are clear bilaterally. GI: No signs and/or symptoms were reported involving the gastrointestinal system. : No signs and/or symptoms were reported regarding the genitourinary system. Derm: Skin is pink, warm \T\ dry. 01:50 Reassessment: Patient and/or family updated on plan of care and expected duration. Pain ea level reassessed. Patient is alert, oriented x 3, equal unlabored respirations, skin warm/dry/pink. 02:33 Reassessment: Patient and/or family updated on plan of care and expected duration. Pain ea level reassessed. Patient is alert, oriented x 3, equal unlabored respirations, skin warm/dry/pink. 03:56 Reassessment: Patient and/or family updated on plan of care and expected duration. Pain ea level reassessed. Patient is alert, oriented x 3, equal unlabored respirations, skin warm/dry/pink. Discharge instructions given to patient, verbalized the understanding of instruction. Vital Signs: 00:25 BP 107 / 74; Pulse 88; Resp 24; Temp 97.8(O); Pulse Ox 98% on R/A; Weight 125.19 kg fc (R); Height 5 ft. 10 in. (177.80 cm) (R); Pain 9/10; 01:45 BP 132 / 72; Pulse 88; Resp 18; Pulse Ox 98% on R/A; ea 02:30 BP 114 / 66; Pulse 90; Resp 18; Pulse Ox 97% on R/A; ea 03:40 BP 114 / 75; Pulse 88; Resp 18; Temp 97.6(O); Pulse Ox 98% on R/A; Pain 6/10; ea 00:25 Body Mass Index 39.60 (125.19 kg, 177.80 cm) ED Course: 00:21 Patient arrived in ED. ds1 00:25 Arm band placed on Patient placed in an exam room, on a stretcher. 00:28 Triage completed. 00:29 Patient has correct armband on for positive identification. Bed in low position. Call light in reach. Side rails up X2. monitor technician on. Pulse ox on. NIBP on. 00:29 No provider procedures requiring assistance completed. fc 00:40 EKG done, by ED staff, reviewed by Jensen Pacheco MD. mt 00:42 Inserted saline lock: 20 gauge in right antecubital area, using aseptic technique. ea Blood collected. 00:43 Patient maintains SpO2 saturation greater than 95% on room air. ea 00:48 Jensen Pacheco MD is Attending Physician. wa 01:00 Mica Addison RN is Primary Nurse. ea 01:43 XRAY Chest (1 view) In Process Unspecified. EDMS 03:50 IV discontinued, intact, bleeding controlled, No redness/swelling at site. Pressure ea dressing applied. Administered Medications: 01:35 Drug: Zofran 4 mg Route: IVP; Site: right forearm; ea 02:35 Follow up: Response: No adverse reaction ea 01:35 Drug: TORadol 15 mg Route: IVP; Site: right forearm; ea 02:35 Follow up: Response: No adverse reaction; Marked relief of symptoms ea 01:36 Not Given (pt refused, reports he took aspirin en route to the hospital. ): Aspirin ea Chewable Tablet 324 mg PO once; 81 mg tablets x 4 02:34 Drug: morphine 2 mg Route: IVP; Site: right forearm; ea 03:00 Follow up: Response: No adverse reaction; Marked relief of symptoms ea 02:34 Drug: Ativan 0.5 mg Route: IVP; Site: right antecubital; ea 03:00 Follow up: Response: No adverse reaction; Marked relief of symptoms ea Outcome: 03:42 Discharge ordered by . kyree 03:57 Discharged to home ambulatory, with family. monie 03:57 Condition: improved 03:57 Discharge instructions given to patient, Instructed on discharge instructions, follow up and referral plans. Demonstrated understanding of instructions, follow-up care. 04:01 Patient left the ED. ea Signatures: Dispatcher [employer] EDMS Evelyn Mota, RN Bridget Lucero ds1 Sujata Villanueva mt, Elena, RN RN ea Appiah, William, MD MD wa
--- NOTE | 2018-01-21 03:43 | EDPHYS ---
Physician Documentation [facility] Name: Marquis Nelson Age: 47 yrs Sex: Male : 1970 Arrival Date: 01/21/2018 Time: 00:21 Bed 7 Private MD: ED Physician Jensen Pacheco HPI: 01/21 03:34 This 47 yrs old Male presents to ER via EMS with complaints of Chest Pain. hi 03:34 The patient or guardian reports chest pain that is located primarily in the substernal wa area. Onset: just prior to arrival. The pain does not radiate. Associated signs and symptoms: Pertinent positives: nausea, shortness of breath, Pertinent negatives: abdominal pain, cough, diaphoresis, dizziness. The chest pain is described as a heaviness. Duration: The patient or guardian reports a single episode, that is still ongoing. Modifying factors: The symptoms are alleviated by nothing. the symptoms are aggravated by nothing. Severity of pain: At its worst the pain was moderate in the emergency department the pain is unchanged. The patient has experienced similar episodes in the past, multiple times, chronically. The patient has been recently seen by a physician:. pt has had 80 visits in this ED for same. Historical: - Allergies: 00:36 Beta Blockers (sensitive/hypotension); fc 00:36 Demerol; fc 00:36 Flomax; fc 00:36 tramadol; fc 00:36 Neurontin; fc 00:36 Stadol; fc 00:36 Skelaxin; fc 00:36 Spironolactone; fc - Home Meds: 00:36 allopurinol 300 mg Oral tab 1 tab once daily [Active]; amlodipine 5 mg tab 1 tab once fc daily [Active]; atorvastatin 40 mg Oral tab 1 tab once daily [Active]; clonazepam 1 mg Oral TbDL 2 times per day [Active]; docusate sodium 100 mg Oral tab 2 times per day [Active]; furosemide 80 mg Oral tab 2 times per day [Active]; Inspra 50 mg Oral tab 1 tab 2 times per day [Active]; Lovenox 120 mg/0.8 mL Sub-Q syrg once daily [Active]; metolazone 2.5 mg Oral tab as needed [Active]; metoprolol succinate 6.25mg Oral Tb24 as needed [Active]; Nitrostat SL as needed [Active]; Novolog Sub-Q [Active]; pantoprazole 40 mg oral TbEC 1 tab once daily [Active]; Plavix 75 mg Oral tab 1 tab once daily [Active]; Potassium Chloride 60MEQ Oral 3 times per day [Active]; Ranexa 1,000 mg Oral Tb12 [Active]; Robaxin Oral [Active]; warfarin 10 mg on MWF and 7.5 mg on T,Th,Sat, Sun Oral tab 1 tab once daily [Active]; - PMHx: 00:36 AAA; ADD/ADHD; Anxiety; CHF; Hypertension; Myocardial infarction; Pulmonary Embolism; fc Kidney stones; Anemia; High Cholesterol; GERD; R BUNDLE BRANCH BLOCK; Sleep Apnea; Atrial Fib; - PSHx: 00:36 Heart stents; Hernia repair; Lithotripsy; fc - Immunization history:: Last tetanus immunization: unknown. - Social history:: Smoking status: Patient/guardian denies using tobacco. - Ebola Screening: : Patient negative for fever greater than or equal to 101.5 degrees Fahrenheit, and additional compatible Ebola Virus Disease symptoms Patient denies exposure to infectious person Patient denies travel to an Ebola-affected area in the 21 days before illness onset. - Family history:: not pertinent. - Hospitalizations: : No recent hospitalization is reported. ROS: 03:36 Constitutional: Negative for fever, chills, and weight loss, Eyes: Negative for injury, wa pain, redness, and discharge, ENT: Negative for injury, pain, and discharge, Neck: Negative for injury, pain, and swelling, Abdomen/GI: Negative for abdominal pain, nausea, vomiting, diarrhea, and constipation, Back: Negative for injury and pain, : Negative for injury, bleeding, discharge, and swelling, MS/Extremity: Negative for injury and deformity, Skin: Negative for injury, rash, and discoloration, Neuro: Negative for headache, weakness, numbness, tingling, and seizure, Psych: Negative for depression, anxiety, suicide ideation, homicidal ideation, and hallucinations. 03:36 Cardiovascular: Positive for chest pain, Negative for edema, orthopnea, palpitations. 03:36 Respiratory: Positive for shortness of breath, at rest. Negative for cough. Exam: 03:36 Constitutional: This is a well developed, well nourished patient who is awake, alert, wa and in no acute distress. Head/Face: Normocephalic, atraumatic. Eyes: Pupils equal round and reactive to light, extra-ocular motions intact. Lids and lashes normal. Conjunctiva and sclera are non-icteric and not injected. Cornea within normal limits. Periorbital areas with no swelling, redness, or edema. ENT: Nares patent. No nasal discharge, no septal abnormalities noted. Tympanic membranes are normal and external auditory canals are clear. Oropharynx with no redness, swelling, or masses, exudates, or evidence of obstruction, uvula midline. Mucous membranes moist. Neck: Trachea midline, no thyromegaly or masses palpated, and no cervical lymphadenopathy. Supple, full range of motion without nuchal rigidity, or vertebral point tenderness. No Meningismus. Chest/axilla: Normal chest wall appearance and motion. Nontender with no deformity. No lesions are appreciated. Abdomen/GI: Soft, non-tender, with normal bowel sounds. No distension or tympany. No guarding or rebound. No evidence of tenderness throughout. Back: No spinal tenderness. No costovertebral tenderness. Full range of motion. Skin: Warm, dry with normal turgor. Normal color with no rashes, no lesions, and no evidence of cellulitis. MS/ Extremity: Pulses equal, no cyanosis. Neurovascular intact. Full, normal range of motion. Neuro: Awake and alert, GCS 15, oriented to person, place, time, and situation. Cranial nerves II-XII grossly intact. Motor strength 5/5 in all extremities. Sensory grossly intact. Cerebellar exam normal. Normal gait. Psych: Awake, alert, with orientation to person, place and time. Behavior, mood, and affect are within normal limits. 03:36 Cardiovascular: Rate: normal, Rhythm: regular, Pulses: no pulse deficits are appreciated, Heart sounds: normal, Edema: is not appreciated, JVD: is not appreciated. 03:36 Respiratory: the patient does not display signs of respiratory distress, Respirations: normal, Breath sounds: are clear throughout, Respiratory rate: normal Vital Signs: 00:25 BP 107 / 74; Pulse 88; Resp 24; Temp 97.8(O); Pulse Ox 98% on R/A; Weight 125.19 kg fc (R); Height 5 ft. 10 in. (177.80 cm) (R); Pain 9/10; 01:45 BP 132 / 72; Pulse 88; Resp 18; Pulse Ox 98% on R/A; ea 02:30 BP 114 / 66; Pulse 90; Resp 18; Pulse Ox 97% on R/A; ea 03:40 BP 114 / 75; Pulse 88; Resp 18; Temp 97.6(O); Pulse Ox 98% on R/A; Pain 6/10; ea 00:25 Body Mass Index 39.60 (125.19 kg, 177.80 cm) fc MDM: 00:49 Patient medically screened. wa 03:37 Differential diagnosis: multiple presentations of same. will work up to r/o acute wa event. pt negotiating opiate meds. discussed with pt the reasons opiates are not the best medication for use in potentially cardiac related chest pain. Data reviewed: vital signs, nurses notes, lab test result(s), EKG, radiologic studies. Test interpretation: by ED physician or midlevel provider: CXR: within normal limits. labs noted within normal limits. . 03:41 Test interpretation: by ED physician or midlevel provider: EKG: HR 89. RBBB. unchanged wa from previous study. 01/21 01:15 Order name: Basic Metabolic Panel; Complete Time: 03:06 01/21 01:15 Order name: CBC with Diff; Complete Time: 03:06 01/21 01:15 Order name: LFT's; Complete Time: 03:06 01/21 01:15 Order name: Magnesium; Complete Time: 03:06 01/21 01:15 Order name: NT PRO-BNP; Complete Time: 03:06 01/21 01:15 Order name: PT-INR; Complete Time: 03:06 01/21 01:15 Order name: Troponin (emerg Dept Use Only); Complete Time: 02:21 01/21 01:15 Order name: XRAY Chest (1 view) hi 01/21 01:15 Order name: EKG; Complete Time: 01:16 01/21 01:15 Order name: Cardiac monitoring; Complete Time: 04:00 01/21 01:15 Order name: EKG - Nurse/Tech; Complete Time: 04:00 01/21 01:15 Order name: IV Saline Lock; Complete Time: 04:00 01/21 01:15 Order name: Labs collected and sent; Complete Time: 04:00 hi 01/21 01:15 Order name: O2 Per Protocol; Complete Time: 04: hi 01/21 01:15 Order name: O2 Sat Monitoring; Complete Time: 04: hi Administered Medications: 01:35 Drug: Zofran 4 mg Route: IVP; Site: right forearm; ea 02:35 Follow up: Response: No adverse reaction ea 01:35 Drug: TORadol 15 mg Route: IVP; Site: right forearm; ea 02:35 Follow up: Response: No adverse reaction; Marked relief of symptoms ea 01:36 Not Given (pt refused, reports he took aspirin en route to the hospital. ): Aspirin ea Chewable Tablet 324 mg PO once; 81 mg tablets x 4 02:34 Drug: morphine 2 mg Route: IVP; Site: right forearm; ea 03:00 Follow up: Response: No adverse reaction; Marked relief of symptoms ea 02:34 Drug: Ativan 0.5 mg Route: IVP; Site: right antecubital; ea 03:00 Follow up: Response: No adverse reaction; Marked relief of symptoms ea Disposition: 01/21/18 03:42 Discharged to Home. Impression: Acute Chest Pain. - Condition is Stable. - Discharge Instructions: Nonspecific Chest Pain, [id number]. - Medication Reconciliation Form, Thank You Letter, Antibiotic Education, Prescription Opioid Use form. - Follow up: Private Physician; When: Tomorrow; Reason: Re-evaluation by your physician. - Problem is an ongoing problem. - Symptoms have improved. - Notes: please follow up with your doctor at [facility] as discussed. take your medication regimen as prescribed. Signatures: Dispatcher [employer] Evelyn Quezada RN Mica Patino RN RN ea Appiah, William, MD MD wa Corrections: (The following items were deleted from the chart) 04: 03:42 01/21/2018 03:42 Discharged to Home. Impression: Acute Chest Pain. Condition is ea Stable. Forms are Medication Reconciliation Form, Thank You Letter, Antibiotic Education, Prescription Opioid Use. Follow up: Private Physician; When: Tomorrow; Reason: Re-evaluation by your physician. Problem is an ongoing problem. Symptoms have improved. wa
[2018-01-21 04:16] VITALS: BP 114/75; TEMP 97.6; O2SAT 98
--- NOTE | 2018-01-21 08:31 | RAD REPORT ---
EXAM DESCRIPTION: RAD - Chest Single View - 01/21/2018 1:43 am CLINICAL HISTORY: CHEST PAIN Chest pain. COMPARISON: Chest Single View dated 01/11/2018; Chest Single View dated 01/09/2018; Chest Single View dated 12/25/2017; Chest Single View dated 08/19/2017 FINDINGS: Portable technique limits examination quality. The lungs are grossly clear. The heart is mildly prominent. External pacer device is noted. No displa jeffrey fractures. IMPRESSION: No acute intrathoracic process suspected.
--- NOTE | 2018-01-21 14:36 | EKG ---
Test Date: 2018-01-21 Test Time: 00:24:54 Database Coordinator: WALDO MEASUREMENT RESULTS: Intervals: Rate: 89 WA: 170 QRSD: 138 QT: 394 QTc: 479 Eva: P: 60 WA: 170 QRS: -1 T: 46 INTERPRETIVE STATEMENTS: Normal sinus rhythm Right bundle branch block Inferior infarct, age undetermined Anterolateral infarct, age undetermined Abnormal ECG Compared to ECG 01/11/2018 15:17:04 T-wave abnormality no longer present Possible ischemia no longer present Myocardial infarct finding still present Electronically Signed On 01-21-18 14:35:18 CDT by Guilherme Sharma
== END 2018-01-21 04:01 | disposition home or self-care (01) ==
LOC: ER 00:20
DX: R07.9 Chest pain, unspecified (principal); I10 Essential (primary) hypertension; E78.00 Pure hypercholesterolemia, unspecified; I25.2 Old myocardial infarction; I50.9 Heart failure, unspecified; Z79.01 Long term (current) use of anticoagulants; Z88.5 Allergy status to narcotic agent; Z88.6 Allergy status to analgesic agent; Z88.8 Allergy status to other drugs, medicaments and biological substances
CPT/HCPCS: 36415; 71045; 80048; 80076; 83735; 83880; 84484; 85025; 85610; 93005; 99285; J2405

== ENCOUNTER 2018-03-25 15:26 | Emergency (ER) | payer OTHER ==
--- OUTSIDE RECORDS SUMMARY | 2018-03-25 15:32 | XMS REPORT | Continuity of Care Document ---
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 [place] Congestive heart Resolved Problem 05/20/2016 2L fluid failure<sup>1</sup> restrictio [place] n/24hrs Diabetes Resolved Problem 05/20/2016 [facility] Hypercholesteremia Resolved Problem 05/20/2016 [facility] Hypertension Resolved Problem 05/20/2016 [facility] Kidney stone Resolved Problem 05/20/2016 [facility] Heart Resolved Problem 05/20/2016 December 04, attack<sup>2</sup> 2016 [place] Bundle branch block, Resolved Problem 05/20/2016 right [place] Sleep apnea Resolved Problem 05/20/2016 [facility] TUBULO-INTERSTITIAL Active [facility] NEPHRITIS, NOT [facility] [place] CHEST PAIN, Active [facility] UNSPECIFIED [place] Medications Medication Details Route Status Patient Ordering Order Source Instructions Provider Date Aspirin 81 mg, 1 tab, Inactive Route: PO, Drug 2015 [place] form: ECTAB, ONCE, Dosing Weight 128.636, kg, Priority: STAT, Start date: 05/17/16 17:16:00 ROD WELDER, Stop date: 05/17/16 17:16:00 CSTNotes: Do not crush or chew. (Same As: Ecotrin) Saline Flush 10 mL, Route: Inactive 0.9% IVP, Drug Form: 2015 [place] INJ, Dosing Weight 128.636, kg, PRN, PRN Line Flush, Start date: 05/17/16 15:48:00 ROD WELDER, Duration: 30 day, Stop date: 06/16/16 15:47:00 CSTNotes: (Same as: BD Posiflush) Plavix 75 mg, 1 tab, No Longer Route: PO, Drug Active 2015 [place] form: TAB, Daily, Dosing Weight 131.7, kg, Start date: 05/07/16 9:00:00 ROD WELDER, Duration: 30 day, Stop date: 06/05/16 9:00:00 CSTNotes: (Same As: Plavix) metoprolol 25 mg 25 mg=1 tab, PO, Active oral tablet, Daily, # 30 tab, 2015 [place] extended release 0 Refill(s) Protonix 40 mg, 1 tab, Inactive Route: PO, Drug 2015 [place] form: ECTAB, Before Dinner, Dosing Weight 131.7, kg, Start date: 05/06/16 16:30:00 ROD WELDER, Duration: 30 day, Stop date: 06/04/16 16:30:00 CSTNotes: Tablet should not be chewed or crushed. (Same as: Protonix) Lisinopril 2.5 mg, 0.5 tab, Inactive Route: PO, Drug 2015 [place] form: TAB, Daily, Dosing Weight 131.7, kg, Start date: 05/06/16 9:00:00 ROD WELDER, Duration: 30 day, Stop date: 06/04/16 9:00:00 CSTNotes: (Same as: Prinivil, Zestril) Aspirin 325 MG 325 mg, 1 tab, Inactive Oral Tablet Route: PO, Drug 2015 [place] form: TAB, Daily, Dosing Weight 127.273, kg, Start date: 05/06/16 9:00:00 ROD WELDER, Duration: 30 day, Stop date: 06/04/16 9:00:00 CSTNotes: Take with food. atorvastatin 40 40 mg=1 tab, PO, Active mg oral tablet Bedtime, # 90 2015 [place] tab, 1 Refill(s) Alprazolam 1 MG 1 mg, 2 tab, No Longer Oral Tablet Route: PO, Drug Active 2015 [place] [Xanax] form: TAB, Q8H, Dosing Weight 131.7, kg, PRN Anxiety, Start date: 05/05/16 22:49:00 ROD WELDER, Duration: 30 day, Stop date: 06/04/16 22:48:00 CSTNotes: With food or milk (Same as: Xanax) Lipitor 80 mg, 2 tab, No Longer Route: PO, Drug Active 2015 [place] form: TAB, Bedtime, Dosing Weight 127.273, kg, Start date: 05/05/16 21:00:00 ROD WELDER, Duration: 30 day, Stop date: 06/03/16 21:00:00 CSTNotes: (Same as: Lipitor) Clindamycin 300 mg, 2 cap, No Longer Route: PO, Drug Active 2015 [place] form: CAP, ABXQ6H, Dosing Weight 127.273, kg, Start date: 05/05/16 21:00:00 ROD WELDER, Stop date: 06/04/16 15:00:00 CSTNotes: (Same As: Cleocin) Saline Flush 10 ml, Route: No Longer 0.9% IVP, Drug Form: Active 2015 [place] INJ, Dosing Weight 127.273, kg, Q12H, Start date: 05/05/16 21:00:00 ROD WELDER, Duration: 30 day, Stop date: 06/04/16 9:00:00 CSTNotes: preservative free. Insulin, Aspart, 1 unit, 0.01 mL, No Longer Human Route: SUB-Q, Active 2015 [place] Drug form: SOLN, Bedtime, Dosing Weight 127.273, kg, PRN Blood Glucose Results, Start date: 05/05/16 20:27:00 ROD WELDER, Duration: 30 day, Stop date: 06/04/16 20:26:00 CSTNotes: Roll in palms of hands gently; Do not shake vigorously. (Same as: NovoLOG) "single patient use only" WASTE: F/P - Black; E - Municipal Trash Bin Stable for 28 days at room temperature. Expires in days from Da te Glucagon 1 mg, Route: IM, No Longer Drug form: Active 2015 [place] PDR/INJ, PRN, Dosing Weight 127.273, kg, PRN Blood Glucose Results, Start date: 05/05/16 20:27:00 ROD WELDER, Duration: 30 day, Stop date: 06/04/16 20:26:00 ROD WELDER Dextrose 50% 12.5 gm, 25 mL, No Longer Syringe Route: IVP, Drug Active 2015 [place] Form: INJ, Dosing Weight 127.273, kg, PRN, PRN Blood Glucose Results, Start date: 05/05/16 20:27:00 ROD WELDER, Duration: 30 day, Stop date: 06/04/16 20:26:00 ROD WELDER Morphine 2 mg, 1 mL, No Longer Route: IVP, Drug Active 2015 [place] form: INJ, Q2H, Dosing Weight 127.273, kg, PRN as needed for chest pain, Priority: STAT, Start date: 05/05/16 20:00:00 ROD WELDER, Duration: 30 day, Stop date: 06/04/16 19:59:00 CSTNotes: (Same as:MORPhine Sulfate) Plavix 75 mg, 1 tab, Inactive Route: PO, Drug 2015 [place] form: TAB, ONCE, Dosing Weight 127.273, kg, Priority: STAT, Start date: 05/05/16 19:58:00 ROD WELDER, Stop date: 05/05/16 19:58:00 CSTNotes: (Same As: Plavix) Saline Flush 10 ml, Route: No Longer 0.9% IVP, Drug Form: Active 2015 [place] INJ, Dosing Weight 127.273, kg, PRN, PRN Line Flush, Start date: 05/05/16 19:55:00 ROD WELDER, Duration: 30 day, Stop date: 06/04/16 19:54:00 CSTNotes: (Same as: BD Posiflush) Albuterol 0.833 3 ml, Route: No Longer MG/ML / NEB, Drug Form: Active 2015 [place] Ipratropium SOLN, Dosing [place] 0.167 Weight 127.273, MG/ML Inhalant kg, PRN, PRN Solution Respiratory Protocol, Start date: 05/05/16 19:55:00 ROD WELDER, Duration: 30 day, Stop date: 06/04/16 19:54:00 CSTNotes: (Same as: Duoneb) Nystatin 100 1 appl, Route: No Longer UNT/MG Topical TOP, PRN, Drug Active 2015 [place] Powder form: PWDR, PRN For Fungal Prophylaxis, Start date: 05/05/16 19:55:00 ROD WELDER, Duration: 30 day, Stop date: 06/04/16 19:54:00 [...] Volume: 500 mL, Start date: 05/05/16 19:43:00 ROD WELDER, Duration: 30 day, Stop date: 06/04/16 19:42:00 ROD WELDER Heparin 60 Route: IVP, PRN, No Longer unit/kg Bolus 5,800 unit, 5.8 Active 2015 [place] (Heparin Dosing mL, Drug form: Weight) INJ, PRN, Heparin Protocol, Start date: 05/05/16 19:43:00 ROD WELDER Stop date: 06/04/16 19:42:00 ROD WELDER Heparin 30 Route: IVP, PRN, No Longer unit/kg Bolus 2,900 unit, 2.9 Active 2015 [place] (Heparin Dosing mL, Drug form: Weight) INJ, PRN, Heparin Protocol, Start date: 05/05/16 19:43:00 ROD WELDER Stop date: 06/04/16 19:42:00 ROD WELDER Heparin - one 4,000 unit, 4 Inactive time bolus for mL, Route: IVP, 2016 [place] [facility] Drug form: INJ, ONCE, Dosing Weight 127.273, kg, Priority: STAT, Start date: 05/05/16 19:43:00 ROD WELDER, Stop date: 05/05/16 19:43:00 ROD WELDER Morphine 4 mg, 1 mL, Inactive Route: IVP, Drug 2015 [place] form: INJ, ONCE, Dosing Weight 127.273, kg, Priority: STAT, Start date: 05/05/16 19:25:00 ROD WELDER, Stop date: 05/05/16 19:25:00 CSTNotes: (Same as:MORPhine Sulfate) Nitroglycerin 1 inch, Route: Inactive 0.02 MG/MG TOP, Dosing 2015 [place] Topical Ointment Weight 127.273, kg, ONCE, STAT, Start date: 05/05/16 17:40:00 ROD WELDER, Stop date: 05/05/16 17:40:00 ROD WELDER Aspirin 81 MG 243 mg, Route: Inactive Chewable Tablet PO, Drug form: 2015 [place] CHEWTAB, ONCE, Dosing Weight 127.273, kg, Priority: STAT, Start date: 05/05/16 17:17:00 ROD WELDER, Stop date: 05/05/16 17:17:00 ROD WELDER Morphine 4 mg, Route: Inactive IVP, ONCE, 2015 [place] Dosing Weight 127.273, kg, Priority: STAT, Start date: 05/05/16 17:15:00 ROD WELDER, Stop date: 05/05/16 17:15:00 ROD WELDER Saline Flush 10 mL, Route: No Longer 0.9% IVP, Drug Form: Active 2015 [place] INJ, Dosing Weight 128.182, kg, PRN, PRN Line Flush, Start date: 05/05/16 16:55:00 ROD WELDER, Duration: 30 day, Stop date: 06/04/16 16:54:00 CSTNotes: preservative free. Acetaminophen 1 - 2 tab, PO, No Longer 300 MG / Codeine Q4H, PRN Pain, X Active 2015 [place] Phosphate 30 MG 2 day, # 20 tab, Oral Tablet 0 Refill(s) [Tylenol with Codeine #3] Morphine 4 mg, 1 mL, Inactive Route: IVP, Drug 2015 [place] form: INJ, ONCE, Dosing Weight 128.182, kg, Priority: STAT, Start date: 04/25/16 19:51:00 CDT, Stop date: 04/25/16 19:51:00 CDTNotes: (Same as:MORPhine Sulfate) Zofran 4 mg, 2 mL, Inactive Route: IVP, Drug 2015 [place] form: INJ, ONCE, Dosing Weight 128.182, kg, Priority: STAT, Start date: 04/25/16 18:23:00 CDT, Stop date: 04/25/16 18:23:00 CDTNotes: (Same as: Zofran) MEDICATION WASTE Product Size: 4 mg Product Wasted: ___ mg Morphine 4 mg, 1 mL, Inactive Route: IVP, Drug 2015 [place] form: INJ, ONCE, Dosing Weight 128.182, kg, Priority: STAT, Start date: 04/25/16 18:23:00 CDT, Stop date: 04/25/16 18:23:00 CDTNotes: (Same as:MORPhine Sulfate) Saline Flush 10 mL, Route: Inactive 0.9% IVP, Drug Form: 2015 [place] INJ, Dosing Weight 129.091, kg, PRN, PRN Line Flush, Start date: 04/25/16 18:07:00 CDT, Duration: 30 day, Stop date: 05/25/16 17:06:00 CSTNotes: (Same as: BD Posiflush) Acetaminophen 1 tab, PO, Q6H, Active 300 MG / Codeine PRN Pain, X 5 2015 [place] Phosphate 30 MG day, # 20 tab, 0 Oral Tablet Refill(s) Morphine 4 mg, Route: Inactive IVP, ONCE, 2015 [place] Dosing Weight 129.091, kg, Priority: STAT, Start date: 03/05/16 8:44:00 CDT, Stop date: 03/05/16 8:44:00 CDT Ondansetron 4 mg, Route: Inactive IVP, Drug form: 2015 [place] INJ, ONCE, Dosing Weight 129.091, kg, Priority: STAT, Start date: 03/05/16 7:35:00 CDT, Stop date: 03/05/16 7:35:00 CDT Aspirin 324 mg, Route: Inactive PO, ONCE, Dosing 2015 [place] Weight 129.091, kg, Priority: STAT, Start date: 03/05/16 7:22:00 CDT, Stop date: 03/05/16 7:22:00 CDT Morphine 2 mg, Route: Inactive IVP, ONCE, 2015 [place] Dosing Weight 129.091, kg, Priority: STAT, Start date: 03/05/16 7:22:00 CDT, Stop date: 03/05/16 7:22:00 CDT Saline Flush 10 mL, Route: Inactive 0.9% IVP, Drug Form: 2015 [place] INJ, Dosing Weight 129.091, kg, PRN, PRN Line Flush, Start date: 03/05/16 7:22:00 CDT, Duration: 30 day, Stop date: 04/04/16 7:21:00 CDTNotes: (Same as: BD Posiflush) Dilaudid 0.5 mg, 0.5 mL, Inactive Route: IVP, Drug 2015 [place] form: INJ, ONCE, Dosing Weight 128.636, kg, Priority: STAT, Start date: 03/02/16 7:40:00 CDT, Stop date: 03/02/16 7:40:00 CDTNotes: Same as: Dilaudid Ketorolac 30 mg, 1 mL, Inactive Route: IVP, Drug 2015 [place] form: INJ, ONCE, Dosing Weight 128.636, kg, Priority: STAT, Start date: 03/02/16 5:25:00 CDT, Stop date: 03/02/16 5:25:00 CDTNotes: (Same as:Toradol) IV bolus must be given >15 seconds. Give IM administration slowly and deeply into the muscle. Not for use > 4 days MEDICATION WASTE Product Size: 30 mg Product Wasted: ___ mg Morphine 4 mg, 1 mL, Inactive Route: IVP, Drug 2015 [place] form: INJ, ONCE, Dosing Weight 128.636, kg, Priority: STAT, Start date: 03/02/16 5:25:00 CDT, Stop date: 03/02/16 5:25:00 CDTNotes: (Same as:MORPhine Sulfate) Ondansetron 4 mg, 2 mL, Inactive Route: IVP, Drug 2015 [place] form: INJ, ONCE, Dosing Weight 128.636, kg, Priority: STAT, Start date: 03/02/16 5:25:00 CDT, Stop date: 03/02/16 5:25:00 CDTNotes: (Same as: Zofran) MEDICATION WASTE Product Size: 4 mg Product Wasted: ___ mg Saline Flush 10 mL, Route: Inactive 0.9% IVP, Drug Form: 2015 [place] INJ, Dosing Weight 128.636, kg, PRN, PRN Line Flush, Start date: 03/02/16 5:25:00 CDT, Duration: 30 day, Stop date: 04/01/16 5:24:00 CDTNotes: (Same as: BD Posiflush) Sodium Chloride 1,000 mL, 2,000 Inactive 0.154 MEQ/ML ml/hr, Infuse 2015 [place] Injectable Over: 30 Solution minutes, Route: IV, 1,000, Drug form: INJ, ONCE, Priority: STAT, Dosing Weight 128.636 kg, Start date: 03/02/16 5:25:00 CDT, Duration: 1 doses or times, Stop date: 03/02/16 5:25:00 CDT Acetaminophen 1 tab, PO, Q6H, Active 300 MG / Codeine PRN Pain, # 28 2015 [place] Phosphate 30 MG tab, 0 Refill(s) Oral Tablet [Tylenol with Codeine #3] Protonix 40 mg, 1 tab, No Longer Route: PO, Drug Active 2015 [place] form: ECTAB, Before Breakfast, Dosing Weight 129.545, kg, Start date: 02/18/16 7:30:00 CDT, Duration: 30 day, Stop date: 03/18/16 7:30:00 CDTNotes: Tablet should not be chewed or crushed. (Same as: Protonix) Lipitor 80 mg, 2 tab, No Longer Route: PO, Drug Active 2015 [place] form: TAB, Bedtime, Dosing Weight 129.545, kg, Start date: 02/17/16 21:00:00 CDT, Duration: 30 day, Stop date: 03/17/16 21:00:00 CDTNotes: (Same as: Lipitor) Morphine 2 mg, 1 mL, No Longer Route: IVP, Drug Active 2015 [place] form: INJ, Q4H, Dosing Weight 129.545, kg, PRN Pain Score 7-10, Start date: 02/17/16 11:54:00 CDT, Duration: 30 day, Stop date: 03/18/16 11:53:00 CDTNotes: (Same as:MORPhine Sulfate) Lovenox 40 mg, 0.4 mL, No Longer Route: SUB-Q, Active 2015 [place] Drug form: INJ, [id number], Dosing Weight 129.545, kg, Start date: 02/17/16 10:00:00 CDT, Duration: 30 day, Stop date: 03/17/16 10:00:00 CDTNotes: (Same as: Lovenox) Lisinopril 2.5 mg, 0.5 tab, No Longer Route: PO, Drug Active 2015 [place] form: TAB, Daily, Dosing Weight 129.545, kg, Start date: 02/17/16 9:55:00 CDT, Duration: 30 day, Stop date: 03/18/16 9:00:00 CDTNotes: (Same as: Prinivil, Zestril) Imdur 30 mg, 1 tab, No Longer Route: PO, Drug Active 2015 [place] form: ERTAB, QAM, Dosing Weight 129.545, kg, Start date: 02/17/16 9:54:00 CDT, Duration: 30 day, Stop date: 03/18/16 9:00:00 CDTNotes: (Same as:Imdur) "Do Not Crush" Take on empty stomach/ full glass of water. Do not crush Plavix 75 mg, 1 tab, No Longer Route: PO, Drug Active 2015 [place] form: TAB, Daily, Dosing Weight 129.545, kg, Start date: 02/17/16 9:54:00 CDT, Duration: 30 day, Stop date: 03/18/16 9:00:00 CDTNotes: (Same As: Plavix) Aspirin 81 MG 81 mg, 1 tab, No Longer Enteric Coated Route: PO, Drug Active 2015 [place] Tablet form: ECTAB, Daily, Dosing Weight 129.545, kg, Start date: 02/17/16 9:54:00 CDT, Duration: 30 day, Stop date: 03/18/16 9:00:00 CDTNotes: Do not crush or chew. (Same As: Ecotrin) Zofran ODT 4 mg, 1 tab, No Longer Route: PO, Drug Active 2015 [place] form: TABDIS, Q12H, Dosing Weight 129.545, kg, PRN Nausea, Start date: 02/17/16 9:25:00 CDT, Duration: 30 day, Stop date: 03/18/16 9:24:00 CDTNotes: (Same as: Zofran ODT) Nitroglycerin 0.4 mg, 1 tab, No Longer 0.4 MG Route: SL, Drug Active 2015 [place] Sublingual form: TAB, Tablet Q5Min, Dosing [Nitrostat] Weight 129.545, kg, PRN Chest Pain, Start date: 02/17/16 9:25:00 CDT, Duration: 30 day, Stop date: 03/18/16 9:24:00 CDTNotes: (Same as:Nitroquick, Nitrostat) "Do Not Crush" Sublingual tablet Alprazolam 1 MG 1 mg, 1 tab, No Longer Oral Tablet Route: PO, Drug Active 2015 [place] [Xanax] form: TAB, Q8H, Dosing Weight 129.545, kg, PRN Anxiety, Start date: 02/17/16 9:23:00 CDT, Duration: 30 day, Stop date: 03/18/16 9:22:00 CDTNotes: With food or milk (Same as: Xanax) pneumococcal 0.5 mL, Route: Inactive capsular IM, Drug Form: 2016 [place] polysaccharide INJ, Daily, type 1 vaccine / [...] No Longer Disintegrating Q12H, PRN Active 2015 [place] Tablet [Zofran] Nausea, 0 Refill(s) Aspirin 81 MG 81 mg=1 tab, PO, Active Enteric Coated Daily, # 90 tab, 2015 [place] Tablet 3 Refill(s) Nitroglycerin 0.4 mg=1 tab, No Longer 0.4 MG SL, Q5Min, PRN Active 2015 [place] Sublingual Chest Pain, # Tablet 100 tab, 0 [Nitrostat] Refill(s) pantoprazole 40 40 mg=1 tab, PO, Active MG Enteric Daily, # 30 tab, 2016 [place] Coated Tablet 0 Refill(s) [Protonix] 24 HR Isosorbide 30 mg=1 tab, PO, Active Mononitrate 30 QAM, # 30 tab, 0 2015 [place] MG Extended Refill(s) Release Tablet [Imdur] Hydroxyzine 25 mg=1 tab, PO, No Longer Hydrochloride 25 Bedtime, PRN Active 2016 [place] MG Oral Tablet Sleep, # 30 tab, 0 Refill(s) Furosemide 20 MG 20 mg=1 tab, PO, Active Oral Tablet Daily, # 30 tab, 2016 [place] 0 Refill(s) Potassium 20 mEq=1 tab, Active Chloride 20 MEQ PO, Daily, # 90 2016 [place] Extended Release tab, 1 Refill(s) Tablet [Klor-Con] Alprazolam 1 MG 1 mg=1 tab, PO, Active Oral Tablet Q8H, PRN 2016 [place] [Xanax] Anxiety, 0 Refill(s) Metformin 1 tab, PO, BID, Active hydrochloride # 60 tab, 0 2015 [place] 500 MG / Refill(s) repaglinide 1 MG Oral Tablet Acetaminophen 1 tab, PO, Q6H, No Longer 300 MG / Codeine PRN Pain, # 28 Active 2016 [place] Phosphate 30 MG tab, 0 Refill(s) Oral Tablet [Tylenol with Codeine #3] lisinopril 2.5 2.5 mg=1 tab, Active mg oral tablet PO, Daily, # 30 2016 [place] tab, 0 Refill(s) clopidogrel 75 75 mg=1 tab, PO, Active MG Oral Tablet Daily, # 30 tab, 2016 [place] [Plavix] 0 Refill(s) atorvastatin 80 80 mg=1 tab, PO, Active MG Oral Tablet Bedtime, # 30 2016 [place] [Lipitor] tab, 0 Refill(s) Ceftriaxone 1 gm, Route: Inactive IVPB, Drug form: 2015 [place] PDR/INJ, ONCE, Dosing Weight 129.545, kg, Priority: STAT, Start date: 02/17/16 7:01:00 CDT, Stop date: 02/17/16 7:01:00 CDT Dilaudid 0.5 mg, Route: Inactive IVP, ONCE, 2015 [place] Dosing Weight 129.545, kg, Priority: STAT, Start date: 02/17/16 6:28:00 CDT, Stop date: 02/17/16 6:28:00 CDT Zofran 4 mg, Route: Inactive IVP, Drug form: 2015 [place] INJ, ONCE, Dosing Weight 129.545, kg, Priority: STAT, Start date: 02/17/16 5:32:00 CDT, Stop date: 02/17/16 5:32:00 CDT Dilaudid 0.5 mg, Route: Inactive IVP, ONCE, 2015 [place] Dosing Weight 129.545, kg, Priority: STAT, Start date: 02/17/16 5:32:00 CDT, Stop date: 02/17/16 5:32:00 CDT Saline Flush 10 mL, Route: Inactive 0.9% IVP, Drug Form: 2015 [place] INJ, kg, PRN, PRN Line Flush, Start date: 02/17/16 5:19:00 CDT, Duration: 30 day, Stop date: 03/18/16 5:18:00 CDTNotes: (Same as: BD Posiflush) Allergies, Adverse Reactions, Alerts Substance Category Reaction Severity Reaction Status Date Comments Source type Reported beta Assertion Drug Active blockers allergy [place] Flomax Assertion Drug Active allergy [place] Stadol Assertion Drug Active MH allergy [place] traMADol Assertion Drug Active MH allergy [place] Immunizations Immunization Date Given Site Status Last Updated Comments Source pneumococcal 02/17/2016 Not Given [facility] 23-valent vaccine Results Order Name Results Value Reference Date Interpretation Comments Source Range URINE AND UA Mucus Few /LPF None Seen 05/17 STOOL /LPF [place] URINE AND UA Leuk Est Negative Negative 05/17 STOOL [place] (05/17/16 5:16 PM) URINE AND UA Bili Negative Negative 05/17 STOOL [place] *NA* (05/17/16 5:16 PM) URINE AND UA Ketones Negative Negative 05/17 STOOL mg/dL mg/dL [place] URINE AND UA Nitrite Negative Negative 05/17 STOOL [place] (05/17/16 5:16 PM) URINE AND UA 0.2 EU/dL 0.1 - 1.0 05/17 STOOL Urobilinogen [place] URINE AND UA Turbidity Clear Clear 05/17 STOOL [place] (05/17/16 5:16 PM) URINE AND UA Blood Negative Negative 05/17 STOOL [place] (05/17/16 5:16 PM) URINE AND UA Glucose Negative Negative 05/17 [place]OOL mg/dL mg/dL [place] URINE AND UA Protein Negative Negative 05/17 STOOL mg/dL mg/dL [place] URINE AND UA pH 6.5 5.0 - 8.0 05/17 STOOL [place] URINE AND UA Spec Grav 1.020 <=1.030 05/17 STOOL [place] URINE AND UA Color Yellow Yellow 05/17 STOOL [place] *NA* (05/17/16 5:16 PM) URINE AND UA Sq Epi Rare /LPF Few /LPF 05/17 STOOL [place] URINE AND UA Bacteria Occasional None Seen 05/17 STOOL /HPF /HPF [place] URINE AND UA RBC 0-2 /HPF 0 - 2 05/17 STOOL [place] URINE AND UA WBC 0-2 /HPF None Seen 05/17 STOOL /HPF /2015 [place] CARDIAC Total CK 74 unit/L 12 - 191 05/17 ENZYMES [place] CARDIAC CK MB 0.8 ng/mL 0.5 - 3.6 05/17 ENZYMES [place] CARDIAC Troponin-I null 0.00 - 05/17 ENZYMES 0.40 [place] CARDIAC CK-MB INDEX 1.1 0.0 - 2.5 05/17 [place] CHEM PANEL eGFR 79 05/17 Result Comment: [...] is not recommended in the following populations: [place] 3m2 Individuals with unstable creatinine concentrations, including [...] Lvl 106 meq/L 95 - 109 05/17 [place] CHEM PANEL CO2 28 meq/L 24 - 32 05/17 [place] CHEM PANEL Calcium Lvl 8.8 mg/dL 8.5 - 10.5 05/17 [place] CHEM PANEL Bili Total 0.4 mg/dL 0.2 - 1.3 05/17 [place] CHEM PANEL AGAP 9.7 meq/L 10.0 - 05/17 20.0 [place] CHEM PANEL B/C Ratio 14 6 - 25 05/17 [place] CHEM PANEL ASPARTATE 14 unit/L 0 - 37 05/17 MH [place] CHEM PANEL Total 7.7 g/dL 6.4 - 8.4 05/17 [place] CHEM PANEL Globulin 4.4 g/dL 2.7 - 4.2 05/17 [place] CHEM PANEL A/G Ratio 0.8 0.7 - 1.6 11 [place] CHEM PANEL Glucose Lvl 148 mg/dL 70 - 99 05/17 [place] CHEM PANEL BUN 15 mg/dL 7 - 22 05/17 [place] CHEM PANEL Creatinine 1.11 mg/dL 0.50 - 05/17 MH Lvl 1.40 [place] CHEM PANEL Sodium Lvl 140 meq/L 135 - 145 05/17 [place] CHEM PANEL Potassium 3.7 meq/L 3.5 - 5.1 05/17 MH Lvl [place] CHEM PANEL Albumin Lvl 3.3 g/dL 3.5 - 5.0 05/17 [place] CHEM PANEL Alk Phos 129 unit/L 39 - 136 05/17 [place] CHEM PANEL ALANINE 30 unit/L 0 - 65 05/17 AMINOTRANS [place] RAS HEMATOLOGY MPV 7.3 fL 7.4 - 10.4 05/17 [place] HEMATOLOGY Platelet 281 K/CMM 133 - 450 05/17 [place] HEMATOLOGY RBC X 10x6 5.30 M/CMM 4.70 - 05/17 MH 6.10 [place] HEMATOLOGY WBC X 10x3 10.5 K/CMM 3.7 - 10.4 05/17 [place] HEMATOLOGY Hgb 12.4 g/dL 14.0 - 05/17 MH 18.0 [place] HEMATOLOGY Hct 36.8 % 42.0 - 05/17 MH 54.0 [place] HEMATOLOGY MCV 69.4 fL 80.0 - 05/17 MH 94.0 [place] HEMATOLOGY MCH 23.4 pg 27.0 - 05/17 MH 31.0 [place] HEMATOLOGY MCHC 33.7 g/dL 32.0 - 05/17 MH 36.0 /2015 [place] HEMATOLOGY RDW 17.1 % 11.5 - 05/17 MH 14.5 /2015 [place] HEMATOLOGY aPTT 35.4 s 22.9 - 05/17 35.8 /2015 [place] HEMATOLOGY PROTIME 13.1 s 12.0 - 05/17 MH 14.7 /2015 [place] [facility] INR 0.97 0.85 - 05/17 MH 1.17 /2015 [place] [facility] Eosinophils 1.1 % 0.0 - 4.0 05/17 [place] [facility] Monocytes 6.7 % 2.0 - 12.0 05/17 [place] [facility] Segs-Bands # 7.2 K/CMM 1.5 - 8.1 05/17 [place] [facility] Basophils 1.1 % 0.0 - 1.0 05/17 [place] [facility] Lymphocytes 2.4 K/CMM 1.0 - 5.5 05/17 # /2015 [place] [facility] Monocytes # 0.7 K/CMM 0.0 - 0.8 05/17 [place] [facility] Eosinophils 0.1 K/CMM 0.0 - 0.5 05/17 # /2015 [place] [facility] Microcyte 2+ None Seen 05/17 [place] *ABN* (05/17/16 4:01 PM) HEMATOLOGY Basophils # 0.1 K/CMM 0.0 - 0.2 05/17 [place] [facility] Lymphocytes 22.3 % 20.0 - 05/17 40.0 [place] [facility] Segs 68.8 % 45.0 - 05/17 75.0 [place] [facility] 1[facility] Chest 1view Portable chest: The cardiomediastinal silhouette and pulmonary vasculature are within normal limits. The lungs and pleural spaces are clear. There are no acute osseous abnormalities. There is no significant change compared to 05/05/2016. 05/17 - [facility] DX DX /2015 - [place] IMPRESSION: Read by: Rizwan Barnhart MD Dictated Date/time: 05/17/16 16:37 Electronically Signed by: Rizwan Barnhart MD 05/17/16 16:38 FINAL REPORT No acute radiographic abnormality in the chest. [id number] CARDIAC Troponin-I null 0.00 - 05/06 ENZYMES 0.40 [place] [facility] aPTT 50.1 s 22.9 - 05/06 MH 35.8 2016 [place] ELECTR[facility] AGAP 10.8 meq/L 10.0 - 05/06 S 20.0 [place] [facility] CO2 28 meq/L 24 - 32 05/06 S [place] [facility] Chloride Lvl 105 meq/L 95 - 109 05/06 S [place] [facility] Calcium Lvl 8.7 mg/dL 8.5 - 10.5 05/06 S [place] [facility] eGFR 103 05/06 Result Comment: The [...] is not recommended in the following populations: [address] Individuals with unstable creatinine concentrations, including [...] 123 mg/dL 70 - 99 05/06 S [place] [facility] Creatinine 0.86 mg/dL 0.50 - 05/06 S Lvl 1.40 [place] [facility] BUN 18 mg/dL 7 - 22 05/06 S [place] [facility] Potassium 3.8 meq/L 3.5 - 5.1 05/06 S Lvl [place] ELECTROLYTE Sodium Lvl 140 meq/L 135 - 145 05/06 S [place] HEMATOLOGY Microcyte 2+ None Seen 05/06 [place] *ABN* (05/06/16 2:42 AM) HEMATOLOGY Eosinophils 0.2 K/CMM 0.0 - 0.5 05/06 # /2015 [place] HEMATOLOGY Monocytes # 0.8 K/CMM 0.0 - 0.8 05/06 [place] HEMATOLOGY Monocytes 7.9 % 2.0 - 12.0 05/06 [place] HEMATOLOGY Lymphocytes 2.5 K/CMM 1.0 - 5.5 05/06 MH # /2016 [place] HEMATOLOGY Segs-Bands # 6.5 K/CMM 1.5 - 8.1 05/06 [place] HEMATOLOGY Basophils 0.4 % 0.0 - 1.0 05/06 MH [place] HEMATOLOGY Eosinophils 1.7 % 0.0 - 4.0 05/06 /2015 [place] HEMATOLOGY Lymphocytes 24.8 % 20.0 - 05/06 MH 40.0 [place] HEMATOLOGY Segs 65.2 % 45.0 - 05/06 MH 75.0 [place] HEMATOLOGY RBC X 10x6 5.11 M/CMM 4.70 - 05/06 MH 6.10 [place] HEMATOLOGY Hct 36.2 % 42.0 - 05/06 MH 54.0 [place] HEMATOLOGY Hgb 11.8 g/dL 14.0 - 05/06 MH 18.0 [place] HEMATOLOGY Platelet 272 K/CMM 133 - 450 05/06 [place] HEMATOLOGY RDW 17.1 % 11.5 - 05/06 14. [place] HEMATOLOGY MPV 7.8 fL 7.4 - 10.4 05/06 /2015 [place] HEMATOLOGY WBC X 10x3 9.9 K/CMM 3.7 - 10.4 05/06 [place] HEMATOLOGY MCHC 32.5 g/dL 32.0 - 05/06 MH 36.0 [place] HEMATOLOGY MCH 23.0 pg 27.0 - 05/06 31.0 [place] HEMATOLOGY MCV 70.8 fL 80.0 - 05/06 94.0 [place] HEMATOLOGY PROTIME 13.4 s 12.0 - 05/06 14. [place] HEMATOLOGY INR 1.00 0.85 - 05/06 MH 1.17 [place] HEMATOLOGY aPTT 49.1 s 22.9 - 05/06 35.8 [place] URINE AND UA Bacteria None Seen None Seen 05/06 STOOL [place] (05/05/16 10:09 PM) URINE AND UA Blood Negative Negative 05/06 STOOL [place] (05/05/16 10:09 PM) URINE AND UA RBC 0-2 /HPF 0 - 2 05/06 [place] URINE AND UA WBC None Seen None Seen 05/06 STOOL [place] (05/05/16 10:09 PM) URINE AND UA Sq Epi None Seen Few 05/06 STOOL [place] (05/05/16 10:09 PM) URINE AND UA Leuk Est Negative Negative 05/06 STOOL [place] (05/05/16 10:09 PM) URINE AND UA 0.2 EU/dL 0.1 - 1.0 05/06 STOOL Urobilinogen [place] URINE AND UA Nitrite Negative Negative 05/06 STOOL [place] (05/05/16 10:09 PM) URINE AND UA Color Yellow Yellow 05/06 [place] *NA* (05/05/16 10:09 PM) URINE AND UA Glucose Negative Negative 05/06 STOOL [place] (05/05/16 10:09 PM) URINE AND UA Bili Negative Negative 05/06 [place] *NA* (05/05/16 10:09 PM) URINE AND UA Ketones Negative Negative 05/06 [place] *NA* (05/05/16 10:09 PM) URINE AND UA Protein Negative Negative 05/06 STOOL [place] (05/05/16 10:09 PM) URINE AND UA pH 6.0 5.0 - 8.0 05/06 [place] URINE AND UA Turbidity Clear Clear 05/06 [place] (05/05/16 10:09 PM) URINE AND UA Spec Grav >=1.030 <=1.030 05/06 [place] *ABN* (05/05/16 10:09 PM) BACTERIAL - MRSA by PCR Negative 05/06 SEROLOGY [place] (05/05/16 10:06 PM) HEMATOLOGY Basophils # 0.1 K/CMM 0.0 - 0.2 05/06 [place] HEMATOLOGY Microcyte 2+ None Seen 05/06 [place] *ABN* (05/05/16 9:38 PM) HEMATOLOGY Eosinophils 1.4 % 0.0 - 4.0 05/06 [place] HEMATOLOGY Basophils 0.7 % 0.0 - 1.0 05/06 [place] HEMATOLOGY Segs-Bands # 7.1 K/CMM 1.5 - 8.1 05/06 /2015 [place] HEMATOLOGY Lymphocytes 24.8 % 20.0 - 05/06 MH 40.0 /2015 [place] HEMATOLOGY Monocytes 7.9 % 2.0 - 12.0 05/06 /2015 [place] HEMATOLOGY Monocytes # 0.9 K/CMM 0.0 - 0.8 05/06 /2015 [place] HEMATOLOGY Eosinophils 0.2 K/CMM 0.0 - 0.5 05/06 MH # /2015 [place] HEMATOLOGY Lymphocytes 2.7 K/CMM 1.0 - 5.5 05/06 MH # /2015 [place] HEMATOLOGY Segs 65.2 % 45.0 - 05/06 MH 75.0 /2015 [place] HEMATOLOGY MCV 69.7 fL 80.0 - 05/06 MH 94.0 [place] HEMATOLOGY MCH 23.3 pg 27.0 - 05/06 MH 31.0 [place] HEMATOLOGY Hgb 12.2 g/dL 14.0 - 05/06 MH 18.0 [place] HEMATOLOGY Hct 36.5 % 42.0 - 05/06 MH 54.0 [place] HEMATOLOGY MCHC 33.4 g/dL 32.0 - 05/06 MH 36.0 [place] HEMATOLOGY Platelet 276 K/CMM 133 - 450 05/06 /2015 [place] HEMATOLOGY MPV 7.2 fL 7.4 - 10.4 05/06 /2015 [place] HEMATOLOGY RDW 17.5 % 11.5 - 05/06 MH 14. [place] HEMATOLOGY WBC X 10x3 11.0 K/CMM 3.7 - 10.4 05/06 [place] HEMATOLOGY RBC X 10x6 5.24 M/CMM 4.70 - 05/06 MH 6.10 [place] HEMATOLOGY INR 1.05 0.85 - 05/06 MH 1.17 [place] HEMATOLOGY PROTIME 13.9 s 12.0 - 05/06 14. [place] HEMATOLOGY aPTT 35.3 s 22.9 - 05/06 MH 35.8 [place] CARDIAC CK-MB INDEX 1.0 0.0 - 2.5 05/05 ENZYMES /2015 [place] CARDIAC CK MB 0.8 ng/mL 0.5 - 3.6 05/05 ENZYMES /2015 [place] CARDIAC Total CK 80 unit/L 12 - 191 05/05 ENZYMES [place] CARDIAC Troponin-I null 0.00 - 05/05 ENZYMES 0.40 [place] CHEM PANEL Alk Phos 133 unit/L 39 - 136 05/05 [place] CHEM PANEL Glucose Lvl 137 mg/dL 70 - 99 05/05 [place] CHEM PANEL BUN 17 mg/dL 7 - 22 05/05 [place] CHEM PANEL Creatinine 1.01 mg/dL 0.50 - 05/05 MH Lvl 1.40 [place] CHEM PANEL Sodium Lvl 139 meq/L 135 - 145 05/05 [place] CHEM PANEL ALANINE 34 unit/L 0 - 65 05/05 AMINOTRANSFE [place] RASE CHEM PANEL Albumin Lvl 3.3 g/dL 3.5 - 5.0 05/05 [place] CHEM PANEL Chloride Lvl 105 meq/L 95 - 109 05/05 [place] CHEM PANEL eGFR 88 05/05 Result Comment: [...] is not recommended in the following populations: [address] Individuals with unstable creatinine concentrations, including [...] Total 0.4 mg/dL 0.2 - 1.3 05/05 [place] CHEM PANEL Calcium Lvl 8.6 mg/dL 8.5 - 10.5 05/05 [place] CHEM PANEL Potassium 3.7 meq/L 3.5 - 5.1 05/05 Lvl [place] CHEM PANEL CO2 28 meq/L 24 - 32 05/05 [place] CHEM PANEL Total 7.8 g/dL 6.4 - 8.4 05/05 [place] CHEM PANEL ASPARTATE 16 unit/L 0 - 37 05/05 [place] CHEM PANEL AGAP 9.7 meq/L 10.0 - 05/05 MH 20.0 [place] CHEM PANEL B/C Ratio 17 6 - 25 05/05 [place] CHEM PANEL Globulin 4.5 g/dL 2.7 - 4.2 05/05 [place] CHEM PANEL A/G Ratio 0.7 0.7 - 1.6 05/05 [place] HEMATOLOGY Monocytes # 0.8 K/CMM 0.0 - 0.8 05/05 [place] HEMATOLOGY Eosinophils 0.1 K/CMM 0.0 - 0.5 05/05 # [place] HEMATOLOGY Basophils # 0.1 K/CMM 0.0 - 0.2 05/05 [place] HEMATOLOGY Microcyte 2+ None Seen 05/05 [place] *ABN* (05/05/16 5:11 PM) HEMATOLOGY Monocytes 7.5 % 2.0 - 12.0 05/05 [place] HEMATOLOGY Eosinophils 1.1 % 0.0 - 4.0 05/05 [place] HEMATOLOGY Basophils 0.7 % 0.0 - 1.0 05/05 [place] HEMATOLOGY Segs-Bands # 7.5 K/CMM 1.5 - 8.1 05/05 [place] HEMATOLOGY Lymphocytes 2.1 K/CMM 1.0 - 5.5 05/05 [place] HEMATOLOGY Lymphocytes 19.9 % 20.0 - 05/05 MH 40.0 [place] HEMATOLOGY Segs 70.8 % 45.0 - 05/05 MH 75.0 [place] HEMATOLOGY Platelet 306 K/CMM 133 - 450 05/05 [place] HEMATOLOGY MCHC 33.6 g/dL 32.0 - 05/05 MH 36.0 [place] HEMATOLOGY MPV 7.3 fL 7.4 - 10.4 05/05 [place] HEMATOLOGY RDW 16.9 % 11.5 - 05/05 MH 14. [place] HEMATOLOGY MCV 69.5 fL 80.0 - 05/05 MH 94.0 [place] HEMATOLOGY MCH 23.4 pg 27.0 - 05/05 MH 31.0 [place] HEMATOLOGY Hct 37.4 % 42.0 - 05/05 MH 54.0 [place] HEMATOLOGY Hgb 12.6 g/dL 14.0 - 05/05 MH 18.0 [place] HEMATOLOGY WBC X 10x3 10.6 K/CMM 3.7 - 10.4 05/05 [place] HEMATOLOGY RBC X 10x6 5.39 M/CMM 4.70 - 05/05 MH 6.10 [place] Chest 1view Chest 1view EXAM: Chest 1view DX 05/05 - [facility] DX DX /2015 - [place] DATE: 05/05/2016 4:55 PM [facility]EL[facility] INDICATION: Chest pain Read by: Tito Farnsworth MD Dictated Date/time: 05/05/16 17:34 COMPARISON: 03/05/2016. Electronically Signed by: Tito Farnsworth MD 05/05/16 17:34 FINAL REPORT IMPRESSION: Stable mildly enlarged cardiac silhouette. Atherosclerotic thoracic aorta. No focal consolidation, significant pleural effusion or pneumothorax. SL: [id number] CHEM PANEL Globulin 4.2 g/dL 2.7 - 4.2 04/25 [place] CHEM PANEL B/C Ratio 19 6 - 25 04/25 [place] CHEM PANEL AGAP 9.9 meq/L 10.0 - 04/25 20.0 [place] CHEM PANEL A/G Ratio 0.8 0.7 - 1.6 04/25 [place] CHEM PANEL eGFR 100 04/25 Result Comment: [...] is not recommended in the following populations: [address] Individuals with unstable creatinine concentrations, including [...] Phos 128 unit/L 39 - 136 04/25 [place] CHEM PANEL Albumin Lvl 3.4 g/dL 3.5 - 5.0 04/25 [place] CHEM PANEL ALANINE 30 unit/L 0 - 65 04/25 AMINOTRANSFE [place] RASE CHEM PANEL Total 7.6 g/dL 6.4 - 8.4 04/25 Protein [place] CHEM PANEL Bili Total 0.3 mg/dL 0.2 - 1.3 04/25 [place] CHEM PANEL ASPARTATE 14 unit/L 0 - 37 04/25 TRANSAMINASE [place] CHEM PANEL CO2 26 meq/L 24 - 32 04/25 [place] CHEM PANEL Calcium Lvl 8.7 mg/dL 8.5 - 10.5 04/25 [place] CHEM PANEL Chloride Lvl 104 meq/L 95 - 109 04/25 [place] CHEM PANEL Potassium 3.9 meq/L 3.5 - 5.1 04/25 MH Lvl /2015 [place] CHEM PANEL Glucose Lvl 221 mg/dL 70 - 99 04/25 [place] CHEM PANEL Sodium Lvl 136 meq/L 135 - 145 04/25 [place] CHEM PANEL Creatinine 0.91 mg/dL 0.50 - 04/25 MH Lvl 1.40 [place] CHEM PANEL BUN 17 mg/dL 7 - 22 04/25 [place] HEMATOLOGY RBC X 10x6 5.40 M/CMM 4.70 - 04/25 MH 6.10 [place] HEMATOLOGY WBC X 10x3 10.3 K/CMM 3.7 - 10.4 04/25 [place] HEMATOLOGY Hgb 12.9 g/dL 14.0 - 04/25 MH 18.0 [place] HEMATOLOGY MPV 7.2 fL 7.4 - 10.4 04/25 [place] HEMATOLOGY RDW 16.8 % 11.5 - 04/25 MH 14. [place] HEMATOLOGY Platelet 313 K/CMM 133 - 450 04/25 [place] HEMATOLOGY MCH 23.8 pg 27.0 - 04/25 MH 31.0 [place] HEMATOLOGY MCHC 34.0 g/dL 32.0 - 04/25 36.0 /2015 [place] HEMATOLOGY Hct 37.9 % 42.0 - 04/25 MH 54.0 /2015 [place] HEMATOLOGY MCV 70.1 fL 80.0 - 04/25 94.0 /2015 [place] HEMATOLOGY Lymphocytes 2.3 K/CMM 1.0 - 5.5 04/25 MH # /2016 [place] HEMATOLOGY Eosinophils 0.1 K/CMM 0.0 - 0.5 04/25 # /2015 [place] HEMATOLOGY Monocytes # 0.6 K/CMM 0.0 - 0.8 04/25 [place] HEMATOLOGY Basophils # 0.1 K/CMM 0.0 - 0.2 04/25 [place] HEMATOLOGY Microcyte 2+ None Seen 04/25 [place] *ABN* (04/25/16 6:17 PM) HEMATOLOGY Segs 69.2 % 45.0 - 04/25 MH 75.0 /2015 [place] HEMATOLOGY Segs-Bands # 7.1 K/CMM 1.5 - 8.1 04/25 [place] HEMATOLOGY Monocytes 6.1 % 2.0 - 12.0 04/25 [place] HEMATOLOGY Basophils 1.1 % 0.0 - 1.0 04/25 [place] HEMATOLOGY Eosinophils 1.1 % 0.0 - 4.0 04/25 [place] HEMATOLOGY Lymphocytes 22.5 % 20.0 - 04/25 40.0 /2016 [place] URINE AND UA WBC 0-2 /HPF None Seen 04/25 STOOL /HPF [place] URINE AND UA RBC 0-2 /HPF 0 - 2 04/25 STOOL [place] URINE AND UA Bacteria Occasional None Seen 04/25 STOOL /HPF /HPF [place] URINE AND UA Leuk Est Negative Negative 04/25 STOOL [place] (04/25/16 6:17 PM) URINE AND UA Sq Epi Occasional Few /LPF 04/25 STOOL /LPF /2015 [place] URINE AND UA pH 6.0 5.0 - 8.0 04/25 [place] URINE AND UA Protein Negative Negative 04/25 STOOL [place] (04/25/16 6:17 PM) URINE AND UA Glucose 250 mg/dL Negative 04/25 STOOL mg/dL /2015 [place] URINE AND UA Ketones Negative Negative 04/25 STOOL [place] *NA* (04/25/16 6:17 PM) URINE AND UA Bili Negative Negative 04/25 [place] *NA* (04/25/16 6:17 PM) URINE AND UA Blood Negative Negative 04/25 [place] (04/25/16 6:17 PM) URINE AND UA 0.2 EU/dL 0.1 - 1.0 04/25 [facility] Urobilinogen [place] URINE AND UA Nitrite Negative Negative 04/25 STOOL [place] (04/25/16 6:17 PM) URINE AND UA Color Yellow Yellow 04/25 [place] *NA* (04/25/16 6:17 PM) URINE AND UA Turbidity Clear Clear 04/25 [place] (04/25/16 6:17 PM) URINE AND UA Spec Grav 1.020 <=1.030 04/25 [facility] [place] Renal Stone Renal Stone EXAM: CT ABDOMEN AND PELVIS WITHOUT CONTRAST [facility] CT [facility] DATE: 04/25/2016 [...] provided. IV contrast: None. CT Radiation Dose: PTY=[id number] mGy-cm FINDINGS: Evaluation of the solid organs [...] infrarenal abdominal aorta without aneurysmal dilatation. SL: [id number] CARDIAC Troponin-I null 0.00 - 03/05 MH ENZYMES 0.40 /2015 [place] CARDIAC CK MB 0.8 ng/mL 0.5 - 3.6 03/05 MH ENZYMES /2016 [place] CARDIAC Total CK 60 unit/L - 191 03/05 MH ENZYMES /2016 [place] CARDIAC CK-MB INDEX 1.3 0.0 - 2.5 03/05 MH ENZYMES /2016 [place] CARDIAC Troponin-I null 0.00 - 03/05 MH ENZYMES 0.40 2016 [place] CARDIAC Total CK 66 unit/L - 191 03/05 MH ENZYMES /2016 [place] CARDIAC CK MB 0.6 ng/mL 0.5 - 3.6 03/05 MH ENZYMES /2016 [place] CARDIAC CK-MB INDEX 0.9 0.0 - 2.5 03/05 MH ENZYMES /2016 [place] CHEM PANEL eGFR 103 03/05 Result Comment: [...] is not recommended in the following populations: [address] Individuals with unstable creatinine concentrations, including [...] 12.0 meq/L 10.0 - 09 MH 20.0 [place] CHEM PANEL Globulin 4.4 g/dL 2.7 - 4.2 03/05 [place] CHEM PANEL B/C Ratio 14 6 - 25 03/05 [place] CHEM PANEL A/G Ratio 0.8 0.7 - 1.6 03/05 [place] CHEM PANEL Calcium Lvl 8.8 mg/dL 8.5 - 10.5 03/05 [place] CHEM PANEL Bili Total 0.6 mg/dL 0.2 - 1.3 03/05 [place] CHEM PANEL Total 7.8 g/dL 6.4 - 8.4 03/05 Protein [place] CHEM PANEL ASPARTATE 16 unit/L 0 - 37 03/05 [place] CHEM PANEL Alk Phos 128 unit/L 39 - 136 03/05 [place] CHEM PANEL Glucose Lvl 97 mg/dL 70 - 99 03/05 [place] CHEM PANEL Creatinine 0.88 mg/dL 0.50 - 03/05 MH Lvl 1.40 [place] CHEM PANEL BUN 12 mg/dL 7 - 22 03/05 [place] CHEM PANEL Sodium Lvl 138 meq/L 135 - 145 03/05 [place] CHEM PANEL ALANINE 32 unit/L 0 - 65 03/05 AMINOTRANS [place] RASE CHEM PANEL Albumin Lvl 3.4 g/dL 3.5 - 5.0 03/05 [place] CHEM PANEL Potassium 4.0 meq/L 3.5 - 5.1 03/05 MH Lvl [place] CHEM PANEL Chloride Lvl 105 meq/L 95 - 109 03/05 [place] CHEM PANEL CO2 25 meq/L 24 - 32 03/05 [place] HEMATOLOGY Platelet 294 K/CMM 133 - 450 03/05 [place] HEMATOLOGY MPV 7.4 fL 7.4 - 10.4 03/05 [place] HEMATOLOGY WBC X 10x3 10.0 K/CMM 3.7 - 10.4 03/05 [place] HEMATOLOGY RDW 16.6 % 11.5 - 03/05 MH 14.5 [place] HEMATOLOGY MCH 24.1 pg 27.0 - 03/05 MH 31.0 [place] HEMATOLOGY MCHC 33.4 g/dL 32.0 - 03/05 MH 36.0 [place] HEMATOLOGY MCV 72.2 fL 80.0 - 03/05 MH 94.0 [place] HEMATOLOGY Hct 38.1 % 42.0 - 03/05 MH 54.0 [place] HEMATOLOGY RBC X 10x6 5.28 M/CMM 4.70 - 03/05 MH 6.10 [place] HEMATOLOGY Hgb 12.7 g/dL 14.0 - 03/05 MH 18.0 [place] HEMATOLOGY Microcyte 1+ None Seen 03/05 [place] *ABN* (03/05/16 7:30 AM) HEMATOLOGY Basophils # 0.1 K/CMM 0.0 - 0.2 03/05 [place] HEMATOLOGY Monocytes # 0.7 K/CMM 0.0 - 0.8 03/05 [place] HEMATOLOGY Eosinophils 0.1 K/CMM 0.0 - 0.5 03/05 MH # /2015 [place] HEMATOLOGY Segs-Bands # 7.5 K/CMM 1.5 - 8.1 03/05 [place] HEMATOLOGY Lymphocytes 1.6 K/CMM 1.0 - 5.5 03/05 # /2015 [place] HEMATOLOGY Eosinophils 1.2 % 0.0 - 4.0 03/05 [place] HEMATOLOGY Basophils 0.6 % 0.0 - 1.0 03/05 [place] HEMATOLOGY Segs 75.1 % 45.0 - 03/05 MH 75.0 [place] HEMATOLOGY Monocytes 7.4 % 2.0 - 12.0 03/05 [place] HEMATOLOGY Lymphocytes 15.7 % 20.0 - 03/05 40.0 [place] Chest 1view Chest 1view Patient Name: ANNABEL MCCONNELL [facility] [place] : 1970; Age: 45 years y/o Male MR: [id number] Read by: Jason Dozier MD Dictated Date/time: [...] unremarkable. IMPRESSION: 1. No active disease. SL: [id number] URINE AND UA RBC 0-2 /HPF 0 - 2 03/02 [place] URINE AND UA Sq Epi None Seen Few 03/02 [place] (03/02/16 8:22 AM) URINE AND UA WBC None Seen None Seen 03/02 [place] (03/02/16 8:22 AM) URINE AND UA pH 6.0 5.0 - 8.0 03/02 [place] URINE AND UA Protein Negative Negative 03/02 STOOL mg/dL mg/dL [place] URINE AND UA Glucose Negative Negative 03/02 STO[facility] mg/dL mg/dL [place] URINE AND UA Ketones Negative Negative 03/02 STOOL mg/dL mg/dL [place] URINE AND UA Bili Negative Negative 03/02 [place] *NA* (03/02/16 8:22 AM) URINE AND UA Color Yellow Yellow 03/02 [place] *NA* (03/02/16 8:22 AM) URINE AND UA Turbidity Clear Clear 03/02 [place] (03/02/16 8:22 AM) URINE AND UA Spec Grav 1.015 <=1.030 03/02 [place] URINE AND UA Blood Negative Negative 03/02 [place] (03/02/16 8:22 AM) URINE AND UA 0.2 EU/dL 0.1 - 1.0 03/02 STOOL Urobilinogen [place] URINE AND UA Nitrite Negative Negative 03/02 [place] (03/02/16 8:22 AM) URINE AND UA Leuk Est Negative Negative 03/02 STOOL [place] (03/02/16 8:22 AM) CHEM PANEL A/G Ratio 0.7 0.7 - 1.6 03/02 [place] CHEM PANEL Globulin 4.6 g/dL 2.7 - 4.2 03/02 [place] CHEM PANEL B/C Ratio 16 6 - 25 03/02 [place] CHEM PANEL AGAP 10.4 meq/L 10.0 - 03/02 MH 20.0 [place] CHEM PANEL Total 8.0 g/dL 6.4 - 8.4 03/02 Protein [place] CHEM PANEL Bili Total 0.3 mg/dL 0.2 - 1.3 03/02 [place] CHEM PANEL Calcium Lvl 8.7 mg/dL 8.5 - 10.5 03/02 [place] CHEM PANEL CO2 26 meq/L 24 - 32 03/02 [place] CHEM PANEL Chloride Lvl 106 meq/L 95 - 109 03/02 [place] CHEM PANEL Sodium Lvl 138 meq/L 135 - 145 03/02 [place] CHEM PANEL Potassium 4.4 meq/L 3.5 - 5.1 03/02 Lv [place] CHEM PANEL eGFR 83 03/02 Result Comment: [...] is not recommended in the following populations: [place] 3m2 Individuals with unstable creatinine concentrations, including [...] ASPARTATE 13 unit/L 0 - 37 03/02 [place] CHEM PANEL Creatinine 1.07 mg/dL 0.50 - 03/02 MH Lvl 1.40 /2015 [place] CHEM PANEL BUN 17 mg/dL 7 - 22 03/02 [place] CHEM PANEL Glucose Lvl 106 mg/dL 70 - 99 03/02 [place] CHEM PANEL Alk Phos 127 unit/L 39 - 136 03/02 [place] CHEM PANEL Albumin Lvl 3.4 g/dL 3.5 - 5.0 03/02 [place] CHEM PANEL ALANINE 33 unit/L 0 - 65 03/02 AMINOTRANSFE /2015 [place] RASE CHEM PANEL Lipase Lvl 164 unit/L 73 - 393 03/02 [place] HEMATOLOGY Basophils # 0.1 K/CMM 0.0 - 0.2 03/02 [place] HEMATOLOGY Microcyte 1+ None Seen 03/02 [place] *ABN* (03/02/16 5:41 AM) HEMATOLOGY Monocytes 6.7 % 2.0 - 12.0 03/02 [place] HEMATOLOGY Lymphocytes 21.9 % 20.0 - 03/02 MH 40.0 [place] HEMATOLOGY Eosinophils 1.5 % 0.0 - 4.0 03/02 [place] HEMATOLOGY Segs 69.1 % 45.0 - 03/02 75.0 [place] HEMATOLOGY Monocytes # 0.8 K/CMM 0.0 - 0.8 03/02 [place] HEMATOLOGY Lymphocytes 2.6 K/CMM 1.0 - 5.5 03/02 MH # [place] HEMATOLOGY Eosinophils 0.2 K/CMM 0.0 - 0.5 03/02 MH [place] HEMATOLOGY Segs-Bands # 8.1 K/CMM 1.5 - 8.1 03/02 [place] HEMATOLOGY Basophils 0.8 % 0.0 - 1.0 03/02 [place] HEMATOLOGY WBC X 10x3 11.8 K/CMM 3.7 - 10.4 03/02 [place] HEMATOLOGY Hct 37.4 % 42.0 - 03/02 MH 54.0 [place] HEMATOLOGY RBC X 10x6 5.18 M/CMM 4.70 - 03/02 MH 6.10 [place] HEMATOLOGY Hgb 12.5 g/dL 14.0 - 03/02 MH 18.0 /2015 [place] HEMATOLOGY MCH 24.1 pg 27.0 - 03/02 MH 31.0 /2015 [place] HEMATOLOGY RDW 16.7 % 11.5 - 03/02 MH 14.5 /2015 [place] HEMATOLOGY MCHC 33.4 g/dL 32.0 - 03/02 MH 36.0 /2015 [place] HEMATOLOGY MCV 72.1 fL 80.0 - 03/02 94.0 /2015 [place] HEMATOLOGY MPV 7.7 fL 7.4 - 10.4 03/02 [place] HEMATOLOGY Platelet 303 K/CMM 133 - 450 03/02 [place] Chest/Abdom Chest/Abdome CT THORAX/ABDOMEN/PELVIS WITH IV CONTRAST WITH SAGITTAL AND CORONAL REFORMATTED IMAGES 03/02 - [facility] en/Pelvis w n/Pelvis w - [place] IV contrast IV contrast CT CT HISTORY: [...] colonic diverticulosis, small abdominal aortic aneurysm. SL: [id number] Abdomen RUQ Abdomen RUQ ULTRASOUND ABDOMEN RIGHT UPPER QUADRANT 03/02 - [facility] US US /2015 - [place] HISTORY: Abdominal pain, acute; right flank pain [...] steatosis. 2. Otherwise normal abdominal ultrasound. SL: [id number] Renal Stone Renal Stone Patient Name: ANNABEL MCCONNELL 03/02 [facility] CT CT /2015 [facility] : 1970; Age: 45 years y/o Male MR: [id number] Read by: John Paul Carrero MD Dictated Date/time: 03/02/16 05:55 Electronically Signed by: John Paul Carrero MD 03/02/16 05:59 FINAL REPORT Study: Renal Stone CT 03/02/2016 5:25 AM CDT Ordering Physician: Clinical Indication: Abdominal pain, acute; Comparison: None TECHNIQUE: Noncontrasted helical imaging was performed from the kidneys through the symphysis as a renal stone protocol. Multiplanar reformations are available. CT Radiation Dose: OCX=[id number] mGy-cm FINDINGS: This examination is limited for [...] - 5.1 02/18 MH S Lvl /2015 [place] ELECTROLYTE Chloride Lvl 104 meq/L 95 - 109 02/18 S [place] ELECTROLYTE Sodium Lvl 136 meq/L 135 - 145 02/18 MH S /2015 [place] ELECTROLYTE Glucose Lvl 147 mg/dL 70 - 99 02/18 MH S [place] ELECTROLYTE Creatinine 0.88 mg/dL 0.50 - 02/18 MH S Lvl 1.40 [place] ELECTROLYTE BUN 10 mg/dL 7 - 22 02/18 MH S /2015 [place] ELECTROLYTE eGFR 103 02/18 Result Comment: The [...] is not recommended in the following populations: [place] 3m2 Individuals with unstable creatinine concentrations, including [...] 8.5 - 10.5 02/18 MH S /2015 [place] ELECTROLYTE CO2 24 meq/L 24 - 32 02/18 MH S /2015 [place] ELECTROLYTE AGAP 12.4 meq/L 10.0 - 02/18 MH S 20.0 [place] HEMATOLOGY RDW 16.3 % 11.5 - 02/18 MH 14. [place] HEMATOLOGY Platelet 273 K/CMM 133 - 450 02/18 [place] HEMATOLOGY MPV 7.5 fL 7.4 - 10.4 02/18 [place] HEMATOLOGY Hgb 12.8 g/dL 14.0 - 02/18 MH 18.0 [place] HEMATOLOGY RBC X 10x6 5.31 M/CMM 4.70 - 02/18 MH 6.10 [place] HEMATOLOGY WBC X 10x3 11.1 K/CMM 3.7 - 10.4 02/18 [place] HEMATOLOGY MCV 72.6 fL 80.0 - 02/18 MH 94.0 [place] HEMATOLOGY Hct 38.6 % 42.0 - 02/18 MH 54.0 [place] HEMATOLOGY MCH 24.1 pg 27.0 - 02/18 MH 31.0 [place] HEMATOLOGY MCHC 33.1 g/dL 32.0 - 02/18 MH 36.0 [place] CARDIAC Troponin-I null 0.00 - 02/17 MH ENZYMES 0.40 [place] HEMATOLOGY Monocytes 7.9 % 2.0 - 12.0 02/17 [place] HEMATOLOGY Lymphocytes 20.8 % 20.0 - 02/17 MH 40.0 [place] HEMATOLOGY Segs 69.1 % 45.0 - 02/17 MH 75.0 [place] HEMATOLOGY Lymphocytes 2.2 K/CMM 1.0 - 5.5 02/17 MH /2015 [place] HEMATOLOGY Monocytes # 0.8 K/CMM 0.0 - 0.8 02/17 [place] HEMATOLOGY Eosinophils 1.6 % 0.0 - 4.0 02/17 [place] HEMATOLOGY Segs-Bands # 7.5 K/CMM 1.5 - 8.1 02/17 [place] HEMATOLOGY Basophils 0.6 % 0.0 - 1.0 02/17 [place] HEMATOLOGY Microcyte 1+ None Seen 02/17 [place] *ABN* (02/18/16 5:20 AM) HEMATOLOGY Basophils # 0.1 K/CMM 0.0 - 0.2 02/17 [place] HEMATOLOGY Eosinophils 0.2 K/CMM 0.0 - 0.5 02/17 MH # /2015 [place] HEMATOLOGY RBC X 10x6 4.91 M/CMM 4.70 - 02/17 MH 6.10 [place] HEMATOLOGY WBC X 10x3 10.8 K/CMM 3.7 - 10.4 02/17 [place] HEMATOLOGY MCH 24.1 pg 27.0 - 02/17 MH 31.0 [place] HEMATOLOGY MCV 73.1 fL 80.0 - 02/17 MH 94.0 [place] HEMATOLOGY Hct 35.9 % 42.0 - 02/17 MH 54.0 [place] HEMATOLOGY Hgb 11.8 g/dL 14.0 - 02/17 MH 18.0 [place] HEMATOLOGY MPV 7.4 fL 7.4 - 10.4 02/17 [place] HEMATOLOGY RDW 16.3 % 11.5 - 02/17 14.5 [place] HEMATOLOGY MCHC 33.0 g/dL 32.0 - 02/17 MH 36.0 [place] HEMATOLOGY Platelet 270 K/CMM 133 - 450 02/17 [place] CARDIAC Troponin-I null 0.00 - 02/16 ENZYMES 0. [place] CHEM PANEL Procalcitoni null 0.00 - 02/16 n Lvl 0.10 [place] CARDIAC Troponin-I null 0.00 - 02/16 ENZYMES 0.40 [place] URINE AND UA Bacteria None Seen None Seen 02/16 STOOL /2015 [place] (02/17/16 6:27 AM) URINE AND UA RBC None Seen 0 - 2 02/16 STOOL /2015 [place] (02/17/16 6:27 AM) URINE AND UA Mucus Few /LPF None Seen 02/16 STOOL /LPF /2015 [place] URINE AND UA Sq Epi Rare /LPF Few /LPF 02/16 STOOL [place] URINE AND UA WBC 0-2 /HPF None Seen 02/16 STOOL /HPF /2015 [place] URINE AND UA Leuk Est Negative Negative 02/16 STOOL /2015 [place] (02/17/16 6:27 AM) URINE AND UA 0.2 EU/dL 0.1 - 1.0 02/16 STOOL Urobilinogen [place] URINE AND UA Nitrite Negative Negative 02/16 STOOL [place] (02/17/16 6:27 AM) URINE AND UA Spec Grav 1.025 <=1.030 02/16 STOOL [place] URINE AND UA Turbidity Clear Clear 02/16 STOOL [place] (02/17/16 6:27 AM) URINE AND UA Color Yellow Yellow 02/16 STOOL [place] *NA* (02/17/16 6:27 AM) URINE AND UA Bili Negative Negative 02/16 STOOL [place] *NA* (02/17/16 6:27 AM) URINE AND UA Blood Negative Negative 02/16 STOOL [place] (02/17/16 6:27 AM) URINE AND UA Ketones Negative Negative 02/16 STOOL mg/dL mg/dL [place] URINE AND UA Glucose Negative Negative 02/16 STOOL mg/dL mg/dL [place] URINE AND UA pH 6.0 5.0 - 8.0 02/16 STOOL [place] URINE AND UA Protein Negative Negative 02/16 STOOL mg/dL mg/dL [place] CARDIAC CK-MB INDEX 1.6 0.0 - 2.5 02/16 ENZYMES [place] CARDIAC CK MB 0.9 ng/mL 0.5 - 3.6 02/16 ENZYMES [place] CARDIAC Total CK 58 unit/L 12 - 191 02/16 ENZYMES [place] CHEM PANEL eGFR 93 02/16 Result Comment: [...] is not recommended in the following populations: [place] 3m2 Individuals with unstable creatinine concentrations, including [...] 33 unit/L 0 - 65 02/16 AMINOTRANS [place] RASE CHEM PANEL CO2 23 meq/L 24 - 32 02/16 [place] CHEM PANEL Calcium Lvl 8.8 mg/dL 8.5 - 10.5 02/16 [place] CHEM PANEL Potassium 4.0 meq/L 3.5 - 5.1 02/16 MH Lvl [place] CHEM PANEL Chloride Lvl 105 meq/L 95 - 109 02/16 [place] CHEM PANEL Creatinine 0.97 mg/dL 0.50 - 02/16 MH Lvl 1.40 [place] CHEM PANEL Glucose Lvl 103 mg/dL 70 - 99 02/16 [place] CHEM PANEL BUN 11 mg/dL 7 - 22 02/16 [place] CHEM PANEL Albumin Lvl 3.4 g/dL 3.5 - 5.0 02/16 [place] CHEM PANEL Alk Phos 128 unit/L 39 - 136 02/16 [place] CHEM PANEL Bili Total 0.5 mg/dL 0.2 - 1.3 02/16 [place] CHEM PANEL Sodium Lvl 139 meq/L 135 - 145 02/16 [place] CHEM PANEL AGAP 15.0 meq/L 10.0 - 02/16 MH 20.0 [place] CHEM PANEL B/C Ratio 11 6 - 25 02/16 [place] CHEM PANEL Total 8.0 g/dL 6.4 - 8.4 02/16 [place] CHEM PANEL ASPARTATE 16 unit/L 0 - 37 02/16 [place] CHEM PANEL Globulin 4.6 g/dL 2.7 - 4.2 02/16 [place] CHEM PANEL A/G Ratio 0.7 0.7 - 1.6 02/16 [place] HEMATOLOGY Microcyte 1+ None Seen 02/16 [place] *ABN* (02/17/16 5:50 AM) HEMATOLOGY Basophils # 0.1 K/CMM 0.0 - 0.2 02/16 [place] HEMATOLOGY Basophils 0.5 % 0.0 - 1.0 02/16 [place] HEMATOLOGY Lymphocytes 2.4 K/CMM 1.0 - 5.5 02/16 MH # /2015 [place] HEMATOLOGY Monocytes # 0.8 K/CMM 0.0 - 0.8 02/16 [place] HEMATOLOGY Eosinophils 0.1 K/CMM 0.0 - 0.5 02/16 MH # /2015 [place] HEMATOLOGY Segs-Bands # 8.7 K/CMM 1.5 - 8.1 02/16 [place] HEMATOLOGY Eosinophils 1.2 % 0.0 - 4.0 02/16 [place] HEMATOLOGY Segs 72.1 % 45.0 - 02/16 MH 75.0 [place] HEMATOLOG[facility] Lymphocytes 19.8 % 20.0 - 02/16 MH 40.0 [place] HEMATOLOGY Monocytes 6.4 % 2.0 - 12.0 02/16 [place] HEMATOLOGY Platelet 327 K/CMM 133 - 450 02/16 [place] HEMATOLOGY MCH 24.1 pg 27.0 - 02/16 31.0 [place] HEMATOLOG[facility] MCHC 33.3 g/dL 32.0 - 02/16 36.0 [place] HEMATOLOG[facility] MPV 7.6 fL 7.4 - 10.4 02/16 [place] HEMATOLOGY RDW 16.3 % 11.5 - 02/16 14.5 [place] HEMATOLOG[facility] Hgb 13.1 g/dL 14.0 - 02/16 18.0 [place] HEMATOLOGY Hct 39.5 % 42.0 - 02/16 54.0 [place] HEMATOLOGY WBC X 10x3 12.0 K/CMM 3.7 - 10.4 02/16 [place] HEMATOLOGY RBC X 10x6 5.45 M/CMM 4.70 - 02/16 MH 6.10 [place] HEMATOLOGY MCV 72.6 fL 80.0 - 02/16 94.0 [place] Renal Stone Renal Stone Patient Name: ANNABEL MCCONNELL 02/16 - [facility] - [place] : 1970; Age: 45 years Male MR: [id number] Read by: Sundar Jeffrey MD Dictated Date/time: [...] small left renal cyst. 7. Cardiomegaly. SL: [id number] Chest 1view Chest 1view Patient Name: ANNABEL MCCONNELL 02/16 [facility] DX DX [place] : 1970; Age: 45 years y/o Male MR: [id number] Read by: Jaun Guillermo MD Dictated Date/time: [...] For Provider Date Date Visit [facility] [id number] Osmar 02/16 02/19 Freddy Roberts /2015 [facility] [id number] Fei 03/02 03/02 Freddy Paritda /2015 [facility] [id number] Rachel Platt 03/05 03/05 Freddy /2015 [facility] [id number] Agustin 04/25 04/26 Freddy Lopez /2015 [facility] [id number] Geronimo 05/05 05/07 Freddy Dupont /2015 [facility] [id number] Karey 05/17 05/18 Freddy Zuleta /2015 [facility] Procedures Procedure Code Date Perfomer Comments Source Catheterization of [id number] [facility] right heart Lithotripsy [id number] [facility] Placement of stent in [id number] R RCA 100% [facility] cardiac blockage conduit<sup>1</sup>
--- NOTE | 2018-03-25 15:34 | EKG ---
Test Date: 2018-03-25 Test Time: 15:24:29 Bilingual Secretary: SUMI MEASUREMENT RESULTS: Intervals: Rate: 91 GA: 168 QRSD: 144 QT: 436 QTc: 536 Monson: P: 21 GA: 168 QRS: -14 T: 18 INTERPRETIVE STATEMENTS: Normal sinus rhythm Right bundle branch block Lateral infarct, age undetermined Inferior infarct, age undetermined Abnormal ECG Compared to ECG 01/21/2018 00:24:54 No significant changes Electronically Signed On 03-25-18 15:34:12 CDT by Guilherme Sharma
[2018-03-25] MEDS ORDERED: LORAZEPAM 0.5 MG TABLET ONE (15:42)
[2018-03-25 15:59] LABS: Potassium 3.5 mmol/L (3.5-5.1)
--- NOTE | 2018-03-25 16:33 | EDPHYS ---
Physician Documentation [facility] Name: Marquis Nelson Age: 47 yrs Sex: Male : 1970 Arrival Date: 03/25/2018 Time: 15:28 Bed 27 Private MD: ED Physician Jose Nolasco HPI: 03/25 16:37 This 47 yrs old Male presents to ER via EMS with complaints of dizziness. snw 16:37 The patient or guardian reports chest pain that is located primarily in the "feels snw funny sometimes". Onset: suddenly, just prior to arrival. The pain does not radiate. Associated signs and symptoms: Pertinent positives: lightheadedness, near-syncope. Duration: The patient or guardian reports a single episode, that is now resolved. Severity of pain: At its worst the pain was very mild. EMS care prior to arrival includes: aspirin, supplemental oxygen. The patient has experienced similar episodes in the past, chronically. Seeing cardiology, EP just placed loop recorder, has appt with Endocrinology for renin-aldosterone assessment. Historical: - Allergies: 15:55 Beta Blockers (sensitive/hypotension); mg2 15:55 Demerol; mg2 15:55 Flomax; mg2 15:55 Neurontin; mg2 15:55 Skelaxin; mg2 15:55 Spironolactone; mg2 15:55 Stadol; mg2 15:55 tramadol; mg2 - Home Meds: 15:55 allopurinol 300 mg Oral tab 1 tab once daily [Active]; amlodipine 5 mg tab 1 tab once mg2 daily [Active]; atorvastatin 40 mg Oral tab 1 tab once daily [Active]; clonazepam 1 mg Oral TbDL 2 times per day [Active]; docusate sodium 100 mg Oral tab 2 times per day [Active]; furosemide 80 mg Oral tab 2 times per day [Active]; Inspra 50 mg Oral tab 1 tab 2 times per day [Active]; Lovenox 120 mg/0.8 mL Sub-Q syrg once daily [Active]; metolazone 2.5 mg Oral tab as needed [Active]; metoprolol succinate 6.25mg Oral Tb24 as needed [Active]; Nitrostat SL as needed [Active]; Novolog Sub-Q [Active]; pantoprazole 40 mg Oral TbEC 1 tab once daily [Active]; Plavix 75 mg Oral tab 1 tab once daily [Active]; Potassium Chloride 60MEQ Oral 3 times per day [Active]; Ranexa 1,000 mg Oral TM12 [Active]; Robaxin Oral [Active]; warfarin 10 mg on MWF and 7.5 mg on T,Th,Sat, Sun Oral tab 1 tab once daily [Active]; - PMHx: 15:55 AAA; ADD/ADHD; Anemia; Anxiety; CHF; Atrial Fib; GERD; High Cholesterol; Hypertension; mg2 Kidney stones; Myocardial infarction; Pulmonary Embolism; R BUNDLE BRANCH BLOCK; Sleep Apnea; - PSHx: 15:55 Hernia repair; renal surgery; Heart stents; internal holter monitor; mg2 - Immunization history:: Flu vaccine is not up to date. - Social history:: Patient/guardian denies using alcohol, street drugs, IV drugs, Smoking status: Patient/guardian denies using tobacco. - Ebola Screening: : No symptoms or risks identified at this time. ROS: 16:36 Constitutional: Negative for fever, chills, and weight loss, Eyes: Negative for injury, snw pain, redness, and discharge, ENT: Negative for injury, pain, and discharge, Neck: Negative for injury, pain, and swelling, Cardiovascular: Negative for chest pain, palpitations, and edema, Respiratory: Negative for shortness of breath, cough, wheezing, and pleuritic chest pain, Abdomen/GI: Negative for abdominal pain, nausea, vomiting, diarrhea, and constipation, Back: Negative for injury and pain, : Negative for injury, bleeding, discharge, and swelling, MS/Extremity: Negative for injury and deformity, Skin: Negative for injury, rash, and discoloration. 16:36 Neuro: Positive for dizziness. 16:36 Psych: Positive for anxiety, "I had a panic attack". Exam: 15:33 ECG was reviewed by the Attending Physician. snw 16:35 Constitutional: This is a well developed, well nourished patient who is awake, alert, snw and in no acute distress. Head/Face: Normocephalic, atraumatic. Eyes: Pupils equal round and reactive to light, extra-ocular motions intact. Lids and lashes normal. Conjunctiva and sclera are non-icteric and not injected. Cornea within normal limits. Periorbital areas with no swelling, redness, or edema. ENT: Nares patent. No nasal discharge, no septal abnormalities noted. Tympanic membranes are normal and external auditory canals are clear. Oropharynx with no redness, swelling, or masses, exudates, or evidence of obstruction, uvula midline. Mucous membranes moist. Neck: Trachea midline, no thyromegaly or masses palpated, and no cervical lymphadenopathy. Supple, full range of motion without nuchal rigidity, or vertebral point tenderness. No Meningismus. Chest/axilla: Normal chest wall appearance and motion. Nontender with no deformity. No lesions are appreciated. Cardiovascular: Regular rate and rhythm with a normal S1 and S2. No gallops, murmurs, or rubs. Normal PMI, no JVD. No pulse deficits. Respiratory: Lungs have equal breath sounds bilaterally, clear to auscultation and percussion. No rales, rhonchi or wheezes noted. No increased work of breathing, no retractions or nasal flaring. Abdomen/GI: Soft, non-tender, with normal bowel sounds. No distension or tympany. No guarding or rebound. No evidence of tenderness throughout. Back: No spinal tenderness. No costovertebral tenderness. Full range of motion. Skin: Warm, dry with normal turgor. Normal color with no rashes, no lesions, and no evidence of cellulitis. MS/ Extremity: Pulses equal, no cyanosis. Neurovascular intact. Full, normal range of motion. Neuro: Awake and alert, GCS 15, oriented to person, place, time, and situation. Cranial nerves II-XII grossly intact. Motor strength 5/5 in all extremities. Sensory grossly intact. Cerebellar exam normal. Normal gait. 16:35 Psych: Behavior/mood is pleasant, cooperative, anxious, Affect is calm, Oriented to person, place, time. Vital Signs: 15:39 BP 102 / 71; Pulse 93; Resp 18; Temp 98.7; Pulse Ox 98% on R/A; Weight 124.74 kg; mg2 Height 5 ft. 10 in. (177.80 cm); Pain 6/10; 16:23 BP 105 / 68 Supine; mg2 16:23 BP 104 / 72 Sitting; mg2 16:23 BP 94 / 65 Standing; mg2 15:39 Body Mass Index 39.46 (124.74 kg, 177.80 cm) mg2 MDM: 15:28 Patient medically screened. snw 16:35 ECG:. The patient was not given aspirin in the Emergency Department. Administered by [facility]. Data reviewed: vital signs, nurses notes, EMS record, lab test result(s), EKG. Data interpreted: Pulse oximetry: on room air is 98 %. Interpretation: normal. Counseling: I had a detailed discussion with the patient and/or guardian regarding: the historical points, exam findings, and any diagnostic results supporting the discharge/admit diagnosis, lab results, the need for outpatient follow up, to return to the emergency department if symptoms worsen or persist or if there are any questions or concerns that arise at home. 03/25 15:29 Order name: Troponin (emerg Dept Use Only); Complete Time: 16:19 snw 03/25 15:31 Order name: Chem 7; Complete Time: 16:19 snw 03/25 15:28 Order name: EKG; Complete Time: 15:29 hj 03/25 15:48 Order name: Orthostatics; Complete Time: 16:25 snw EC:33 Rate is 91 beats/min. Rhythm is regular. QRS interval is normal at 144 msec. QT snw interval is normal at 536 msec. Q waves are Present in leads II, III, aVF, V1. T waves are Inverted in leads V2, V3. No ST changes noted. No change from previous ECG on January 21, 2018. Reviewed by me. Administered Medications: 15:42 Drug: Ativan 1 mg Route: PO; mg2 16:24 Follow up: Response: No adverse reaction; Marked relief of symptoms mg2 Disposition: 03/26 07:10 Co-signature as Attending Physician, Jose Nolasco MD I agree with the assessment and [facility] plan of care. Disposition: 03/25/18 16:32 Discharged to Home. Impression: Dizziness and giddiness, Anxiety disorder due to known physiological condition. - Condition is Stable. - Discharge Instructions: Panic Attacks, Dizziness. - Medication Reconciliation Form, Thank You Letter, Antibiotic Education, Prescription Opioid Use form. - Follow up: Private Physician; When: 1 - 2 days; Reason: Recheck today's complaints, Continuance of care, Re-evaluation by your physician. Follow up: Emergency Department; When: As needed; Reason: Worsening of condition. Signatures: Dispatcher [employer] Jose Joel MD MD cha Therrien, Shelly, PLANT ATTENDANT-C PLANT ATTENDANT-Csnw Miles Dowd, RN RN mg2 Corrections: (The following items were deleted from the chart) 03/25 16:55 16:32 03/25/2018 16:32 Discharged to Home. Impression: Dizziness and giddiness; Anxiety mg2 disorder due to known physiological condition. Condition is Stable. Forms are Medication Reconciliation Form, Thank You Letter, Antibiotic Education, Prescription Opioid Use. Follow up: Private Physician; When: 1 - 2 days; Reason: Recheck today's complaints, Continuance of care, Re-evaluation by your physician. Follow up: Emergency Department; When: As needed; Reason: Worsening of condition. snw
--- NOTE | 2018-03-25 16:33 | ER ---
Nurse's Notes [facility] Name: Marquis Nelson Age: 47 yrs Sex: Male : 1970 Arrival Date: 03/25/2018 Time: 15:28 Bed 27 Private MD: Diagnosis: Dizziness and giddiness;Anxiety disorder due to known physiological condition Presentation: 03/25 15:36 Presenting complaint: EMS states: patient has dizziness and localized nonradiating mg2 chest pain starting 12 noon today. on scene, patient's orthostatic blood pressure was 100/60 . 324 mg aspirin given by EMS. BGL was 181 mg/dl. Transition of care: patient was not received from another setting of care. Onset of symptoms was March 25, 2018. Risk Assessment: Do you want to hurt yourself or someone else? Patient reports no desire to harm self or others. Initial Sepsis Screen: Does the patient meet any 2 criteria? No. Patient's initial sepsis screen is negative. Does the patient have a suspected source of infection? No. Patient's initial sepsis screen is negative. Care prior to arrival: Medication(s) given: ASA, 324 mg. 15:36 Method Of Arrival: EMS: [facility] mg2 15:36 Acuity: THANH 3 mg2 Historical: - Allergies: 15:55 Beta Blockers (sensitive/hypotension); mg2 15:55 Demerol; mg2 15:55 Flomax; mg2 15:55 Neurontin; mg2 15:55 Skelaxin; mg2 15:55 Spironolactone; mg2 15:55 Stadol; mg2 15:55 tramadol; mg2 - Home Meds: 15:55 allopurinol 300 mg Oral tab 1 tab once daily [Active]; amlodipine 5 mg tab 1 tab once mg2 daily [Active]; atorvastatin 40 mg Oral tab 1 tab once daily [Active]; clonazepam 1 mg Oral TbDL 2 times per day [Active]; docusate sodium 100 mg Oral tab 2 times per day [Active]; furosemide 80 mg Oral tab 2 times per day [Active]; Inspra 50 mg Oral tab 1 tab 2 times per day [Active]; Lovenox 120 mg/0.8 mL Sub-Q syrg once daily [Active]; metolazone 2.5 mg Oral tab as needed [Active]; metoprolol succinate 6.25mg Oral Tb24 as needed [Active]; Nitrostat SL as needed [Active]; Novolog Sub-Q [Active]; pantoprazole 40 mg Oral TbEC 1 tab once daily [Active]; Plavix 75 mg Oral tab 1 tab once daily [Active]; Potassium Chloride 60MEQ Oral 3 times per day [Active]; Ranexa 1,000 mg Oral TM12 [Active]; Robaxin Oral [Active]; warfarin 10 mg on MWF and 7.5 mg on T,Th,Sat, Sun Oral tab 1 tab once daily [Active]; - PMHx: 15:55 AAA; ADD/ADHD; Anemia; Anxiety; CHF; Atrial Fib; GERD; High Cholesterol; Hypertension; mg2 Kidney stones; Myocardial infarction; Pulmonary Embolism; R BUNDLE BRANCH BLOCK; Sleep Apnea; - PSHx: 15:55 Hernia repair; renal surgery; Heart stents; internal holter monitor; mg2 - Immunization history:: Flu vaccine is not up to date. - Social history:: Patient/guardian denies using alcohol, street drugs, IV drugs, Smoking status: Patient/guardian denies using tobacco. - Ebola Screening: : No symptoms or risks identified at this time. Screenin:56 Abuse screen: Denies threats or abuse. Denies injuries from another. Nutritional mg2 screening: No deficits noted. Tuberculosis screening: No symptoms or risk factors identified. Fall Risk IV access (20 points). Assessment: 15:56 General: Appears in no apparent distress. comfortable, Behavior is calm, cooperative. mg2 Pain: Complains of pain in chest Pain does not radiate. Pain currently is 6 out of 10 on a pain scale. Quality of pain is described as aching, Pain began gradually, 4 hours ago. Is intermittent. Neuro: Level of Consciousness is awake, alert, obeys commands, Oriented to person, place, time, situation. Neuro: Reports dizziness, since 1200 noon today. Cardiovascular: Capillary refill < 3 seconds Patient's skin is warm and dry. Respiratory: Airway is patent Respiratory effort is even, unlabored, Respiratory pattern is regular, symmetrical. GI: No signs and/or symptoms were reported involving the gastrointestinal system. : No signs and/or symptoms were reported regarding the genitourinary system. EENT: No signs and/or symptoms were reported regarding the EENT system. Derm: Skin is intact, is healthy with good turgor, Skin is pink, warm \T\ dry. normal. Musculoskeletal: No signs and/or symptoms reported regarding the musculoskeletal system. 16:55 Reassessment: Patient appears in no apparent distress at this time. Patient and/or mg2 family updated on plan of care and expected duration. Pain level reassessed. Patient is alert, oriented x 3, equal unlabored respirations, skin warm/dry/pink. Vital Signs: 15:39 BP 102 / 71; Pulse 93; Resp 18; Temp 98.7; Pulse Ox 98% on R/A; Weight 124.74 kg; mg2 Height 5 ft. 10 in. (177.80 cm); Pain 6/10; 16:23 BP 105 / 68 Supine; mg2 16:23 BP 104 / 72 Sitting; mg2 16:23 BP 94 / 65 Standing; mg2 15:39 Body Mass Index 39.46 (124.74 kg, 177.80 cm) mg2 ED Course: 15:28 Patient arrived in ED. mr 15:28 [facility] snw 15:28 Jose Nolasco MD is Attending Physician. snw 15:31 Miles Dowd RN is Primary Nurse. mg2 15:38 EKG done, by clock repair technician. reviewed by Elisabeth METZ. sm3 15:39 Triage completed. mg2 15:56 Arm band placed on. mg2 16:23 Patient has correct armband on for positive identification. Placed in gown. Bed in low mg2 position. Call light in reach. Side rails up X2. environmental monitoring specialist on. Pulse ox on. NIBP on. Door closed. Warm blanket given. Pillow given. 16:54 No provider procedures requiring assistance completed. IV discontinued, intact, mg2 bleeding controlled, No redness/swelling at site. Pressure dressing applied. Administered Medications: 15:42 Drug: Ativan 1 mg Route: PO; mg2 16:24 Follow up: Response: No adverse reaction; Marked relief of symptoms mg2 Outcome: 16:32 Discharge ordered by . snw 16:55 Discharged to home ambulatory. mg2 16:55 Condition: stable 16:55 Discharge instructions given to patient, Instructed on discharge instructions, follow up and referral plans. Demonstrated understanding of instructions, follow-up care. 16:55 Patient left the ED. mg2 Signatures: Elisabeth Luu FNP-C FNP-Lc [place], Sharlene mr Nile, Miles, RN RN piedad Longo, Shantal [facility]
[2018-03-25 17:01] VITALS: TEMP 98.7; O2SAT 98
[2018-03-25 17:02] VITALS: BP 94/65
== END 2018-03-25 16:55 | disposition home or self-care (01) ==
LOC: ER 15:26
DX: F06.4 Anxiety disorder due to known physiological condition (principal); I10 Essential (primary) hypertension; E78.00 Pure hypercholesterolemia, unspecified; I48.91 Unspecified atrial fibrillation; I50.9 Heart failure, unspecified; I25.2 Old myocardial infarction; Z79.01 Long term (current) use of anticoagulants; Z79.4 Long term (current) use of insulin; Z88.5 Allergy status to narcotic agent; Z88.6 Allergy status to analgesic agent; Z88.8 Allergy status to other drugs, medicaments and biological substances; Z95.818 Presence of other cardiac implants and grafts
CPT/HCPCS: 36415; 80048; 84484; 93005; 99284

== ENCOUNTER 2018-05-23 09:58 | Emergency (ER) | payer OTHER ==
--- OUTSIDE RECORDS SUMMARY | 2018-05-23 10:05 | XMS REPORT | Continuity of Care Document ---
:1970 Author Organization Interface Problems Problem Status Onset Classification Date Comments Source Date Reported Discharge Diagnosis: 05/20/2016 Chest pain 016 [place] CHEST PAIN Active [address] ACS, CHEST PAIN Active [facility] 016 [place] Discharge Diagnosis: 04/28/2016 Flank pain 016 [place] KIDNEY STONES Active [facility] 016 [place] Discharge Diagnosis: 03/08/2016 Acute chest pain 016 [place] Discharge Diagnosis: 03/05/2016 Renal calculus 016 [place] KIDNEY STONE Active [address] PYELONEPHRITIS Active [address] 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 [place] Congestive heart Resolved Problem 05/20/2016 2L fluid failure<sup>1</sup> restrictio [place] n/24hrs Diabetes Resolved Problem 05/20/2016 [facility] Hypercholesteremia Resolved Problem 05/20/2016 [facility] Hypertension Resolved Problem 05/20/2016 [facility] Kidney stone Resolved Problem 05/20/2016 [facility] Heart Resolved Problem 05/20/2016 December 04, attack<sup>2</sup> 2016 [place] Bundle branch block, Resolved Problem 05/20/2016 right [place] Sleep apnea Resolved Problem 05/20/2016 [facility] TUBULO-INTERSTITIAL Active [facility] NEPHRITIS, NOT SPCF [place] CHEST PAIN, Active [facility] UNSPECIFIED [place] Medications Medication Details Route Status Patient Ordering Order Source Instructions Provider Date Aspirin 81 mg, 1 tab, Inactive Route: PO, Drug 2015 [place] form: ECTAB, ONCE, Dosing Weight 128.636, kg, Priority: STAT, Start date: 05/17/16 17:16:00 [employer], Stop date: 05/17/16 17:16:00 CSTNotes: Do not crush or chew. (Same As: Ecotrin) Saline Flush 10 mL, Route: Inactive 0.9% IVP, Drug Form: 2015 [place] INJ, Dosing Weight 128.636, kg, PRN, PRN Line Flush, Start date: 05/17/16 15:48:00 [employer], Duration: 30 day, Stop date: 06/16/16 15:47:00 CSTNotes: (Same as: BD Posiflush) Plavix 75 mg, 1 tab, No Longer Route: PO, Drug Active 2015 [place] form: TAB, Daily, Dosing Weight 131.7, kg, Start date: 05/07/16 9:00:00 [employer], Duration: 30 day, Stop date: 06/05/16 9:00:00 CSTNotes: (Same As: Plavix) metoprolol 25 mg 25 mg=1 tab, PO, Active oral tablet, Daily, # 30 tab, 2015 [place] extended release 0 Refill(s) Protonix 40 mg, 1 tab, Inactive Route: PO, Drug 2015 [place] form: ECTAB, Before Dinner, Dosing Weight 131.7, kg, Start date: 05/06/16 16:30:00 [employer], Duration: 30 day, Stop date: 06/04/16 16:30:00 CSTNotes: Tablet should not be chewed or crushed. (Same as: Protonix) Lisinopril 2.5 mg, 0.5 tab, Inactive Route: PO, Drug 2015 [place] form: TAB, Daily, Dosing Weight 131.7, kg, Start date: 05/06/16 9:00:00 [employer], Duration: 30 day, Stop date: 06/04/16 9:00:00 CSTNotes: (Same as: Prinivil, Zestril) Aspirin 325 MG 325 mg, 1 tab, Inactive Oral Tablet Route: PO, Drug 2015 [place] form: TAB, Daily, Dosing Weight 127.273, kg, Start date: 05/06/16 9:00:00 [employer], Duration: 30 day, Stop date: 06/04/16 9:00:00 CSTNotes: Take with food. atorvastatin 40 40 mg=1 tab, PO, Active mg oral tablet Bedtime, # 90 2015 [place] tab, 1 Refill(s) Alprazolam 1 MG 1 mg, 2 tab, No Longer Oral Tablet Route: PO, Drug Active 2015 [place] [Xanax] form: TAB, Q8H, Dosing Weight 131.7, kg, PRN Anxiety, Start date: 05/05/16 22:49:00 [employer], Duration: 30 day, Stop date: 06/04/16 22:48:00 CSTNotes: With food or milk (Same as: Xanax) Lipitor 80 mg, 2 tab, No Longer Route: PO, Drug Active 2015 [place] form: TAB, Bedtime, Dosing Weight 127.273, kg, Start date: 05/05/16 21:00:00 [employer], Duration: 30 day, Stop date: 06/03/16 21:00:00 CSTNotes: (Same as: Lipitor) Clindamycin 300 mg, 2 cap, No Longer Route: PO, Drug Active 2015 [place] form: CAP, ABXQ6H, Dosing Weight 127.273, kg, Start date: 05/05/16 21:00:00 [employer], Stop date: 06/04/16 15:00:00 CSTNotes: (Same As: Cleocin) Saline Flush 10 ml, Route: No Longer 0.9% IVP, Drug Form: Active 2015 [place] INJ, Dosing Weight 127.273, kg, Q12H, Start date: 05/05/16 21:00:00 [employer], Duration: 30 day, Stop date: 06/04/16 9:00:00 CSTNotes: preservative free. Insulin, Aspart, 1 unit, 0.01 mL, No Longer Human Route: SUB-Q, Active 2015 [place] Drug form: SOLN, Bedtime, Dosing Weight 127.273, kg, PRN Blood Glucose Results, Start date: 05/05/16 20:27:00 [employer], Duration: 30 day, Stop date: 06/04/16 20:26:00 CSTNotes: Roll in palms of hands gently; Do not shake vigorously. (Same as: NovoLOG) "single patient use only" WASTE: F/P - Black; E - Municipal Trash Bin Stable for 28 days at room temperature. Expires in days from Da te Glucagon 1 mg, Route: IM, No Longer Drug form: Active 2015 [place] PDR/INJ, PRN, Dosing Weight 127.273, kg, PRN Blood Glucose Results, Start date: 05/05/16 20:27:00 [employer], Duration: 30 day, Stop date: 06/04/16 20:26:00 [employer] Dextrose 50% 12.5 gm, 25 mL, No Longer Syringe Route: IVP, Drug Active 2015 [place] Form: INJ, Dosing Weight 127.273, kg, PRN, PRN Blood Glucose Results, Start date: 05/05/16 20:27:00 [employer], Duration: 30 day, Stop date: 06/04/16 20:26:00 [employer] Morphine 2 mg, 1 mL, No Longer Route: IVP, Drug Active 2015 [place] form: INJ, Q2H, Dosing Weight 127.273, kg, PRN as needed for chest pain, Priority: STAT, Start date: 05/05/16 20:00:00 [employer], Duration: 30 day, Stop date: 06/04/16 19:59:00 CSTNotes: (Same as:MORPhine Sulfate) Plavix 75 mg, 1 tab, Inactive Route: PO, Drug 2015 [place] form: TAB, ONCE, Dosing Weight 127.273, kg, Priority: STAT, Start date: 05/05/16 19:58:00 [employer], Stop date: 05/05/16 19:58:00 CSTNotes: (Same As: Plavix) Saline Flush 10 ml, Route: No Longer 0.9% IVP, Drug Form: Active 2015 [place] INJ, Dosing Weight 127.273, kg, PRN, PRN Line Flush, Start date: 05/05/16 19:55:00 [employer], Duration: 30 day, Stop date: 06/04/16 19:54:00 CSTNotes: (Same as: BD Posiflush) Albuterol 0.833 3 ml, Route: No Longer MG/ML / NEB, Drug Form: Active 2015 [place] Ipratropium SOLN, Dosing [place] 0.167 Weight 127.273, MG/ML Inhalant kg, PRN, PRN Solution Respiratory Protocol, Start date: 05/05/16 19:55:00 [employer], Duration: 30 day, Stop date: 06/04/16 19:54:00 CSTNotes: (Same as: Duoneb) Nystatin 100 1 appl, Route: No Longer UNT/MG Topical TOP, PRN, Drug Active 2015 [place] Powder form: PWDR, PRN For Fungal Prophylaxis, Start date: 05/05/16 19:55:00 [employer], Duration: 30 day, Stop date: 06/04/16 19:54:00 [...] Volume: 500 mL, Start date: 05/05/16 19:43:00 [employer], Duration: 30 day, Stop date: 06/04/16 19:42:00 [employer] Heparin 60 Route: IVP, PRN, No Longer unit/kg Bolus 5,800 unit, 5.8 Active 2015 [place] (Heparin Dosing mL, Drug form: Weight) INJ, PRN, Heparin Protocol, Start date: 05/05/16 19:43:00 [employer] Stop date: 06/04/16 19:42:00 [employer] Heparin 30 Route: IVP, PRN, No Longer unit/kg Bolus 2,900 unit, 2.9 Active 2015 [place] (Heparin Dosing mL, Drug form: Weight) INJ, PRN, Heparin Protocol, Start date: 05/05/16 19:43:00 [employer] Stop date: 06/04/16 19:42:00 [employer] Heparin - one 4,000 unit, 4 Inactive time bolus for mL, Route: IVP, 2016 [place] ACS Drug form: INJ, ONCE, Dosing Weight 127.273, kg, Priority: STAT, Start date: 05/05/16 19:43:00 [employer], Stop date: 05/05/16 19:43:00 [employer] Morphine 4 mg, 1 mL, Inactive Route: IVP, Drug 2015 [place] form: INJ, ONCE, Dosing Weight 127.273, kg, Priority: STAT, Start date: 05/05/16 19:25:00 [employer], Stop date: 05/05/16 19:25:00 CSTNotes: (Same as:MORPhine Sulfate) Nitroglycerin 1 inch, Route: Inactive 0.02 MG/MG TOP, Dosing 2015 [place] Topical Ointment Weight 127.273, kg, ONCE, STAT, Start date: 05/05/16 17:40:00 [employer], Stop date: 05/05/16 17:40:00 [employer] Aspirin 81 MG 243 mg, Route: Inactive Chewable Tablet PO, Drug form: 2015 [place] CHEWTAB, ONCE, Dosing Weight 127.273, kg, Priority: STAT, Start date: 05/05/16 17:17:00 [employer], Stop date: 05/05/16 17:17:00 [employer] Morphine 4 mg, Route: Inactive IVP, ONCE, 2015 [place] Dosing Weight 127.273, kg, Priority: STAT, Start date: 05/05/16 17:15:00 [employer], Stop date: 05/05/16 17:15:00 [employer] Saline Flush 10 mL, Route: No Longer 0.9% IVP, Drug Form: Active 2015 [place] INJ, Dosing Weight 128.182, kg, PRN, PRN Line Flush, Start date: 05/05/16 16:55:00 [employer], Duration: 30 day, Stop date: 06/04/16 16:54:00 CSTNotes: preservative free. Acetaminophen 1 - 2 tab, PO, No Longer 300 MG / Codeine Q4H, PRN Pain, X Active 2015 [place] Phosphate 30 MG 2 day, # 20 tab, Oral Tablet 0 Refill(s) [Tylenol with Codeine #3] Morphine 4 mg, 1 mL, Inactive Route: IVP, Drug 2015 [place] form: INJ, ONCE, Dosing Weight 128.182, kg, Priority: STAT, Start date: 04/25/16 19:51:00 CDT, Stop date: 04/25/16 19:51:00 CDTNotes: (Same as:MORPhine Sulfate) Zofran 4 mg, 2 mL, Inactive Route: IVP, Drug 2015 [place] form: INJ, ONCE, Dosing Weight 128.182, kg, Priority: STAT, Start date: 04/25/16 18:23:00 CDT, Stop date: 04/25/16 18:23:00 CDTNotes: (Same as: Zofran) MEDICATION WASTE Product Size: 4 mg Product Wasted: ___ mg Morphine 4 mg, 1 mL, Inactive Route: IVP, Drug 2015 [place] form: INJ, ONCE, Dosing Weight 128.182, kg, Priority: STAT, Start date: 04/25/16 18:23:00 CDT, Stop date: 04/25/16 18:23:00 CDTNotes: (Same as:MORPhine Sulfate) Saline Flush 10 mL, Route: Inactive 0.9% IVP, Drug Form: 2015 [place] INJ, Dosing Weight 129.091, kg, PRN, PRN Line Flush, Start date: 04/25/16 18:07:00 CDT, Duration: 30 day, Stop date: 05/25/16 17:06:00 CSTNotes: (Same as: BD Posiflush) Acetaminophen 1 tab, PO, Q6H, Active 300 MG / Codeine PRN Pain, X 5 2015 [place] Phosphate 30 MG day, # 20 tab, 0 Oral Tablet Refill(s) Morphine 4 mg, Route: Inactive IVP, ONCE, 2015 [place] Dosing Weight 129.091, kg, Priority: STAT, Start date: 03/05/16 8:44:00 CDT, Stop date: 03/05/16 8:44:00 CDT Ondansetron 4 mg, Route: Inactive IVP, Drug form: 2015 [place] INJ, ONCE, Dosing Weight 129.091, kg, Priority: STAT, Start date: 03/05/16 7:35:00 CDT, Stop date: 03/05/16 7:35:00 CDT Aspirin 324 mg, Route: Inactive PO, ONCE, Dosing 2015 [place] Weight 129.091, kg, Priority: STAT, Start date: 03/05/16 7:22:00 CDT, Stop date: 03/05/16 7:22:00 CDT Morphine 2 mg, Route: Inactive IVP, ONCE, 2015 [place] Dosing Weight 129.091, kg, Priority: STAT, Start date: 03/05/16 7:22:00 CDT, Stop date: 03/05/16 7:22:00 CDT Saline Flush 10 mL, Route: Inactive 0.9% IVP, Drug Form: 2015 [place] INJ, Dosing Weight 129.091, kg, PRN, PRN Line Flush, Start date: 03/05/16 7:22:00 CDT, Duration: 30 day, Stop date: 04/04/16 7:21:00 CDTNotes: (Same as: BD Posiflush) Dilaudid 0.5 mg, 0.5 mL, Inactive Route: IVP, Drug 2015 [place] form: INJ, ONCE, Dosing Weight 128.636, kg, Priority: STAT, Start date: 03/02/16 7:40:00 CDT, Stop date: 03/02/16 7:40:00 CDTNotes: Same as: Dilaudid Ketorolac 30 mg, 1 mL, Inactive Route: IVP, Drug 2015 [place] form: INJ, ONCE, Dosing Weight 128.636, kg, Priority: STAT, Start date: 03/02/16 5:25:00 CDT, Stop date: 03/02/16 5:25:00 CDTNotes: (Same as:Toradol) IV bolus must be given >15 seconds. Give IM administration slowly and deeply into the muscle. Not for use > 4 days MEDICATION WASTE Product Size: 30 mg Product Wasted: ___ mg Morphine 4 mg, 1 mL, Inactive Route: IVP, Drug 2015 [place] form: INJ, ONCE, Dosing Weight 128.636, kg, Priority: STAT, Start date: 03/02/16 5:25:00 CDT, Stop date: 03/02/16 5:25:00 CDTNotes: (Same as:MORPhine Sulfate) Ondansetron 4 mg, 2 mL, Inactive Route: IVP, Drug 2015 [place] form: INJ, ONCE, Dosing Weight 128.636, kg, Priority: STAT, Start date: 03/02/16 5:25:00 CDT, Stop date: 03/02/16 5:25:00 CDTNotes: (Same as: Zofran) MEDICATION WASTE Product Size: 4 mg Product Wasted: ___ mg Saline Flush 10 mL, Route: Inactive 0.9% IVP, Drug Form: 2015 [place] INJ, Dosing Weight 128.636, kg, PRN, PRN Line Flush, Start date: 03/02/16 5:25:00 CDT, Duration: 30 day, Stop date: 04/01/16 5:24:00 CDTNotes: (Same as: BD Posiflush) Sodium Chloride 1,000 mL, 2,000 Inactive 0.154 MEQ/ML ml/hr, Infuse 2015 [place] Injectable Over: 30 Solution minutes, Route: IV, 1,000, Drug form: INJ, ONCE, Priority: STAT, Dosing Weight 128.636 kg, Start date: 03/02/16 5:25:00 CDT, Duration: 1 doses or times, Stop date: 03/02/16 5:25:00 CDT Acetaminophen 1 tab, PO, Q6H, Active 300 MG / Codeine PRN Pain, # 28 2015 [place] Phosphate 30 MG tab, 0 Refill(s) Oral Tablet [Tylenol with Codeine #3] Protonix 40 mg, 1 tab, No Longer Route: PO, Drug Active 2015 [place] form: ECTAB, Before Breakfast, Dosing Weight 129.545, kg, Start date: 02/18/16 7:30:00 CDT, Duration: 30 day, Stop date: 03/18/16 7:30:00 CDTNotes: Tablet should not be chewed or crushed. (Same as: Protonix) Lipitor 80 mg, 2 tab, No Longer Route: PO, Drug Active 2015 [place] form: TAB, Bedtime, Dosing Weight 129.545, kg, Start date: 02/17/16 21:00:00 CDT, Duration: 30 day, Stop date: 03/17/16 21:00:00 CDTNotes: (Same as: Lipitor) Morphine 2 mg, 1 mL, No Longer Route: IVP, Drug Active 2015 [place] form: INJ, Q4H, Dosing Weight 129.545, kg, PRN Pain Score 7-10, Start date: 02/17/16 11:54:00 CDT, Duration: 30 day, Stop date: 03/18/16 11:53:00 CDTNotes: (Same as:MORPhine Sulfate) Lovenox 40 mg, 0.4 mL, No Longer Route: SUB-Q, Active 2015 [place] Drug form: INJ, [id number], Dosing Weight 129.545, kg, Start date: 02/17/16 10:00:00 CDT, Duration: 30 day, Stop date: 03/17/16 10:00:00 CDTNotes: (Same as: Lovenox) Lisinopril 2.5 mg, 0.5 tab, No Longer Route: PO, Drug Active 2015 [place] form: TAB, Daily, Dosing Weight 129.545, kg, Start date: 02/17/16 9:55:00 CDT, Duration: 30 day, Stop date: 03/18/16 9:00:00 CDTNotes: (Same as: Prinivil, Zestril) Imdur 30 mg, 1 tab, No Longer Route: PO, Drug Active 2015 [place] form: ERTAB, QAM, Dosing Weight 129.545, kg, Start date: 02/17/16 9:54:00 CDT, Duration: 30 day, Stop date: 03/18/16 9:00:00 CDTNotes: (Same as:Imdur) "Do Not Crush" Take on empty stomach/ full glass of water. Do not crush Plavix 75 mg, 1 tab, No Longer Route: PO, Drug Active 2015 [place] form: TAB, Daily, Dosing Weight 129.545, kg, Start date: 02/17/16 9:54:00 CDT, Duration: 30 day, Stop date: 03/18/16 9:00:00 CDTNotes: (Same As: Plavix) Aspirin 81 MG 81 mg, 1 tab, No Longer Enteric Coated Route: PO, Drug Active 2015 [place] Tablet form: ECTAB, Daily, Dosing Weight 129.545, kg, Start date: 02/17/16 9:54:00 CDT, Duration: 30 day, Stop date: 03/18/16 9:00:00 CDTNotes: Do not crush or chew. (Same As: Ecotrin) Zofran ODT 4 mg, 1 tab, No Longer Route: PO, Drug Active 2015 [place] form: TABDIS, Q12H, Dosing Weight 129.545, kg, PRN Nausea, Start date: 02/17/16 9:25:00 CDT, Duration: 30 day, Stop date: 03/18/16 9:24:00 CDTNotes: (Same as: Zofran ODT) Nitroglycerin 0.4 mg, 1 tab, No Longer 0.4 MG Route: SL, Drug Active 2015 [place] Sublingual form: TAB, Tablet Q5Min, Dosing [Nitrostat] Weight 129.545, kg, PRN Chest Pain, Start date: 02/17/16 9:25:00 CDT, Duration: 30 day, Stop date: 03/18/16 9:24:00 CDTNotes: (Same as:Nitroquick, Nitrostat) "Do Not Crush" Sublingual tablet Alprazolam 1 MG 1 mg, 1 tab, No Longer Oral Tablet Route: PO, Drug Active 2015 [place] [Xanax] form: TAB, Q8H, Dosing Weight 129.545, kg, PRN Anxiety, Start date: 02/17/16 9:23:00 CDT, Duration: 30 day, Stop date: 03/18/16 9:22:00 CDTNotes: With food or milk (Same as: Xanax) pneumococcal 0.5 mL, Route: Inactive capsular IM, Drug Form: 2016 [place] polysaccharide INJ, Daily, type 1 vaccine / [...] No Longer Disintegrating Q12H, PRN Active 2015 [place] Tablet [Zofran] Nausea, 0 Refill(s) Aspirin 81 MG 81 mg=1 tab, PO, Active Enteric Coated Daily, # 90 tab, 2015 [place] Tablet 3 Refill(s) Nitroglycerin 0.4 mg=1 tab, No Longer 0.4 MG SL, Q5Min, PRN Active 2015 [place] Sublingual Chest Pain, # Tablet 100 tab, 0 [Nitrostat] Refill(s) pantoprazole 40 40 mg=1 tab, PO, Active MG Enteric Daily, # 30 tab, 2016 [place] Coated Tablet 0 Refill(s) [Protonix] 24 HR Isosorbide 30 mg=1 tab, PO, Active Mononitrate 30 QAM, # 30 tab, 0 2015 [place] MG Extended Refill(s) Release Tablet [Imdur] Hydroxyzine 25 mg=1 tab, PO, No Longer Hydrochloride 25 Bedtime, PRN Active 2016 [place] MG Oral Tablet Sleep, # 30 tab, 0 Refill(s) Furosemide 20 MG 20 mg=1 tab, PO, Active Oral Tablet Daily, # 30 tab, 2016 [place] 0 Refill(s) Potassium 20 mEq=1 tab, Active Chloride 20 MEQ PO, Daily, # 90 2016 [place] Extended Release tab, 1 Refill(s) Tablet [Klor-Con] Alprazolam 1 MG 1 mg=1 tab, PO, Active Oral Tablet Q8H, PRN 2016 [place] [Xanax] Anxiety, 0 Refill(s) Metformin 1 tab, PO, BID, Active hydrochloride # 60 tab, 0 2015 [place] 500 MG / Refill(s) repaglinide 1 MG Oral Tablet Acetaminophen 1 tab, PO, Q6H, No Longer 300 MG / Codeine PRN Pain, # 28 Active 2016 [place] Phosphate 30 MG tab, 0 Refill(s) Oral Tablet [Tylenol with Codeine #3] lisinopril 2.5 2.5 mg=1 tab, Active mg oral tablet PO, Daily, # 30 2016 [place] tab, 0 Refill(s) clopidogrel 75 75 mg=1 tab, PO, Active MG Oral Tablet Daily, # 30 tab, 2016 [place] [Plavix] 0 Refill(s) atorvastatin 80 80 mg=1 tab, PO, Active MG Oral Tablet Bedtime, # 30 2016 [place] [Lipitor] tab, 0 Refill(s) Ceftriaxone 1 gm, Route: Inactive IVPB, Drug form: 2015 [place] PDR/INJ, ONCE, Dosing Weight 129.545, kg, Priority: STAT, Start date: 02/17/16 7:01:00 CDT, Stop date: 02/17/16 7:01:00 CDT Dilaudid 0.5 mg, Route: Inactive IVP, ONCE, 2015 [place] Dosing Weight 129.545, kg, Priority: STAT, Start date: 02/17/16 6:28:00 CDT, Stop date: 02/17/16 6:28:00 CDT Zofran 4 mg, Route: Inactive IVP, Drug form: 2015 [place] INJ, ONCE, Dosing Weight 129.545, kg, Priority: STAT, Start date: 02/17/16 5:32:00 CDT, Stop date: 02/17/16 5:32:00 CDT Dilaudid 0.5 mg, Route: Inactive IVP, ONCE, 2015 [place] Dosing Weight 129.545, kg, Priority: STAT, Start date: 02/17/16 5:32:00 CDT, Stop date: 02/17/16 5:32:00 CDT Saline Flush 10 mL, Route: Inactive 0.9% IVP, Drug Form: 2015 [place] INJ, kg, PRN, PRN Line Flush, Start date: 02/17/16 5:19:00 CDT, Duration: 30 day, Stop date: 03/18/16 5:18:00 CDTNotes: (Same as: BD Posiflush) Allergies, Adverse Reactions, Alerts Substance Category Reaction Severity Reaction Status Date Comments Source type Reported beta Assertion Drug Active blockers allergy [place] Flomax Assertion Drug Active allergy [place] Stadol Assertion Drug Active MH allergy [place] traMADol Assertion Drug Active MH allergy [place] Immunizations Immunization Date Given Site Status Last Updated Comments Source pneumococcal 02/17/2016 Not Given [facility] 23-valent vaccine Results Order Name Results Value Reference Date Interpretation Comments Source Range URINE AND UA Mucus Few /LPF None Seen 05/17 STOOL /LPF [place] URINE AND UA Leuk Est Negative Negative 05/17 STOOL [place] (05/17/16 5:16 PM) URINE AND UA Bili Negative Negative 05/17 STOOL [place] *NA* (05/17/16 5:16 PM) URINE AND UA Ketones Negative Negative 05/17 STOOL mg/dL mg/dL [place] URINE AND UA Nitrite Negative Negative 05/17 STOOL [place] (05/17/16 5:16 PM) URINE AND UA 0.2 EU/dL 0.1 - 1.0 05/17 STOOL Urobilinogen [place] URINE AND UA Turbidity Clear Clear 05/17 STOOL [place] (05/17/16 5:16 PM) URINE AND UA Blood Negative Negative 05/17 STOOL [place] (05/17/16 5:16 PM) URINE AND UA Glucose Negative Negative 05/17 STOOL mg/dL mg/dL [place] URINE AND UA Protein Negative Negative 05/17 STOOL mg/dL mg/dL [place] URINE AND UA pH 6.5 5.0 - 8.0 05/17 STOOL [place] URINE AND UA Spec Grav 1.020 <=1.030 05/17 STOOL [place] URINE AND UA Color Yellow Yellow 05/17 STOOL [place] *NA* (05/17/16 5:16 PM) URINE AND UA Sq Epi Rare /LPF Few /LPF 05/17 STOOL [place] URINE AND UA Bacteria Occasional None Seen 05/17 STOOL /HPF /HPF [place] URINE AND UA RBC 0-2 /HPF 0 - 2 05/17 STOOL [place] URINE AND UA WBC 0-2 /HPF None Seen 05/17 STOOL /HPF /2015 [place] CARDIAC Total CK 74 unit/L 12 - 191 05/17 ENZYMES [place] CARDIAC CK MB 0.8 ng/mL 0.5 - 3.6 05/17 ENZYMES [place] CARDIAC Troponin-I null 0.00 - 05/17 ENZYMES 0.40 [place] CARDIAC CK-MB INDEX 1.1 0.0 - 2.5 05/17 [place] CHEM PANEL eGFR 79 05/17 Result Comment: [...] is not recommended in the following populations: [place] 3m2 Individuals with unstable creatinine concentrations, including [...] Lvl 106 meq/L 95 - 109 05/17 [place] CHEM PANEL CO2 28 meq/L 24 - 32 05/17 [place] CHEM PANEL Calcium Lvl 8.8 mg/dL 8.5 - 10.5 05/17 [place] CHEM PANEL Bili Total 0.4 mg/dL 0.2 - 1.3 05/17 [place] CHEM PANEL AGAP 9.7 meq/L 10.0 - 05/17 20.0 [place] CHEM PANEL B/C Ratio 14 6 - 25 05/17 [place] CHEM PANEL ASPARTATE 14 unit/L 0 - 37 05/17 MH [place] CHEM PANEL Total 7.7 g/dL 6.4 - 8.4 05/17 [place] CHEM PANEL Globulin 4.4 g/dL 2.7 - 4.2 05/17 [place] CHEM PANEL A/G Ratio 0.8 0.7 - 1.6 11 [place] CHEM PANEL Glucose Lvl 148 mg/dL 70 - 99 05/17 [place] CHEM PANEL BUN 15 mg/dL 7 - 22 05/17 [place] CHEM PANEL Creatinine 1.11 mg/dL 0.50 - 05/17 MH Lvl 1.40 [place] CHEM PANEL Sodium Lvl 140 meq/L 135 - 145 05/17 [place] CHEM PANEL Potassium 3.7 meq/L 3.5 - 5.1 05/17 MH Lvl [place] CHEM PANEL Albumin Lvl 3.3 g/dL 3.5 - 5.0 05/17 [place] CHEM PANEL Alk Phos 129 unit/L 39 - 136 05/17 [place] CHEM PANEL ALANINE 30 unit/L 0 - 65 05/17 AMINOTRANS [place] RAS HEMATOLOGY MPV 7.3 fL 7.4 - 10.4 05/17 [place] HEMATOLOGY Platelet 281 K/CMM 133 - 450 05/17 [place] HEMATOLOGY RBC X 10x6 5.30 M/CMM 4.70 - 05/17 MH 6.10 [place] HEMATOLOGY WBC X 10x3 10.5 K/CMM 3.7 - 10.4 05/17 [place] HEMATOLOGY Hgb 12.4 g/dL 14.0 - 05/17 MH 18.0 [place] HEMATOLOGY Hct 36.8 % 42.0 - 05/17 MH 54.0 [place] HEMATOLOGY MCV 69.4 fL 80.0 - 05/17 MH 94.0 [place] HEMATOLOGY MCH 23.4 pg 27.0 - 05/17 MH 31.0 [place] HEMATOLOGY MCHC 33.7 g/dL 32.0 - 05/17 MH 36.0 /2015 [place] HEMATOLOGY RDW 17.1 % 11.5 - 05/17 MH 14.5 /2015 [place] HEMATOLOGY aPTT 35.4 s 22.9 - 05/17 35.8 /2015 [place] HEMATOLOGY PROTIME 13.1 s 12.0 - 05/17 MH 14.7 /2015 [place] HEMATOLOGY INR 0.97 0.85 - 05/17 MH 1.17 /2015 [place] HEMATOLOGY Eosinophils 1.1 % 0.0 - 4.0 05/17 [place] HEMATOLOGY Monocytes 6.7 % 2.0 - 12.0 05/17 [place] HEMATOLOGY Segs-Bands # 7.2 K/CMM 1.5 - 8.1 05/17 [place] HEMATOLOGY Basophils 1.1 % 0.0 - 1.0 05/17 [place]EMAT[facility] Lymphocytes 2.4 K/CMM 1.0 - 5.5 05/17 # /2015 [facility] HEMATOLOGY Monocytes # 0.7 K/CMM 0.0 - 0.8 05/17 [facility]EMATOLOGY Eosinophils 0.1 K/CMM 0.0 - 0.5 05/17 # /2015 [facility] HEMATOLOGY Microcyte 2+ None Seen 05/17 [facility] *ABN* (05/17/16 4:01 PM) HEMATOLOGY Basophils # 0.1 K/CMM 0.0 - 0.2 05/17 [facility] HEMATOLOGY Lymphocytes 22.3 % 20.0 - 05/17 40.0 [facility] HEMATOLOGY Segs 68.8 % 45.0 - 05/17 75.0 [facility] Chest 1view Chest 1view Portable chest: The cardiomediastinal silhouette and pulmonary vasculature are within normal limits. The lungs and pleural spaces are clear. There are no acute osseous abnormalities. There is no significant change compared to 05/05/2016. 05/17 - [facility] DX DX /2015 - [place] IMPRESSION: Read by: Rizwan Barnhart MD Dictated Date/time: 05/17/16 16:37 Electronically Signed by: Rizwan Barnhart MD 05/17/16 16:38 FINAL REPORT No acute radiographic abnormality in the chest. [id number] CARDIAC Troponin-I null 0.00 - 05/06 ENZYMES 0.40 [facility] HEMATOLOGY aPTT 50.1 s 22.9 - 05/06 MH 35.8 2016 [facility] ELECTROLYTE AGAP 10.8 meq/L 10.0 - 05/06 S 20.0 [facility] ELECTROLYTE CO2 28 meq/L 24 - 32 05/06 S [facility] ELECTROLYTE Chloride Lvl 105 meq/L 95 - 109 05/06 S [facility] ELECTROLYTE Calcium Lvl 8.7 mg/dL 8.5 - 10.5 05/06 S [facility] ELECTROLYTE eGFR 103 05/06 Result Comment: The [...] is not recommended in the following populations: [address] Individuals with unstable creatinine concentrations, including [...] 123 mg/dL 70 - 99 05/06 S [facility] ELECTROLYTE Creatinine 0.86 mg/dL 0.50 - 05/06 S Lvl 1.40 [facility] ELECTROLYTE BUN 18 mg/dL 7 - 22 05/06 S [facility] ELECTROLYTE Potassium 3.8 meq/L 3.5 - 5.1 05/06 S Lvl [facility] ELECTROLYTE Sodium Lvl 140 meq/L 135 - 145 05/06 S [facility] HEMATOLOGY Microcyte 2+ None Seen 05/06 [facility] *ABN* (05/06/16 2:42 AM) HEMATOLOGY Eosinophils 0.2 K/CMM 0.0 - 0.5 05/06 # /2015 [facility] HEMATOLOGY Monocytes # 0.8 K/CMM 0.0 - 0.8 05/06 [facility] HEMATOLOGY Monocytes 7.9 % 2.0 - 12.0 05/06 [facility] HEMATOLOGY Lymphocytes 2.5 K/CMM 1.0 - 5.5 05/06 MH # /2016 [facility] HEMATOLOGY Segs-Bands # 6.5 K/CMM 1.5 - 8.1 05/06 [facility] HEMATOLOGY Basophils 0.4 % 0.0 - 1.0 05/06 MH [facility] HEMATOLOGY Eosinophils 1.7 % 0.0 - 4.0 05/06 /2015 [facility] HEMATOLOGY Lymphocytes 24.8 % 20.0 - 05/06 MH 40.0 [facility] HEMATOLOGY Segs 65.2 % 45.0 - 05/06 MH 75.0 [facility] HEMATOLOGY RBC X 10x6 5.11 M/CMM 4.70 - 05/06 MH 6.10 [facility] HEMATOLOGY Hct 36.2 % 42.0 - 05/06 MH 54.0 [facility] HEMATOLOGY Hgb 11.8 g/dL 14.0 - 05/06 MH 18.0 [facility] HEMATOLOGY Platelet 272 K/CMM 133 - 450 05/06 [facility] HEMATOLOGY RDW 17.1 % 11.5 - 05/06 14. [facility] HEMATOLOGY MPV 7.8 fL 7.4 - 10.4 05/06 /2015 [facility] HEMATOLOGY WBC X 10x3 9.9 K/CMM 3.7 - 10.4 05/06 [facility] HEMATOLOGY MCHC 32.5 g/dL 32.0 - 05/06 MH 36.0 [facility] HEMATOLOGY MCH 23.0 pg 27.0 - 05/06 31.0 [facility] HEMATOLOGY MCV 70.8 fL 80.0 - 05/06 94.0 [facility] HEMATOLOGY PROTIME 13.4 s 12.0 - 05/06 14. [facility] HEMATOLOGY INR 1.00 0.85 - 05/06 MH 1.17 [facility] HEMATOLOGY aPTT 49.1 s 22.9 - 05/06 35.8 [facility] URINE AND UA Bacteria None Seen None Seen 05/06 STOOL [facility] (05/05/16 10:09 PM) URINE AND UA Blood Negative Negative 05/06 STOOL [facility] (05/05/16 10:09 PM) URINE AND UA RBC 0-2 /HPF 0 - 2 05/06 [facility] URINE AND UA WBC None Seen None Seen 05/06 STOOL [facility] (05/05/16 10:09 PM) URINE AND UA Sq Epi None Seen Few 05/06 STOOL [facility] (05/05/16 10:09 PM) URINE AND UA Leuk Est Negative Negative 05/06 STOOL [facility] (05/05/16 10:09 PM) URINE AND UA 0.2 EU/dL 0.1 - 1.0 05/06 STOOL Urobilinogen [facility] URINE AND UA Nitrite Negative Negative 05/06 STOOL [facility] (05/05/16 10:09 PM) URINE AND UA Color Yellow Yellow 05/06 [facility] *NA* (05/05/16 10:09 PM) URINE AND UA Glucose Negative Negative 05/06 STOOL [facility] (05/05/16 10:09 PM) URINE AND UA Bili Negative Negative 05/06 [facility] *NA* (05/05/16 10:09 PM) URINE AND UA Ketones Negative Negative 05/06 [facility] *NA* (05/05/16 10:09 PM) URINE AND UA Protein Negative Negative 05/06 STOOL [facility] (05/05/16 10:09 PM) URINE AND UA pH 6.0 5.0 - 8.0 05/06 [facility] URINE AND UA Turbidity Clear Clear 05/06 [facility] (05/05/16 10:09 PM) URINE AND UA Spec Grav >=1.030 <=1.030 05/06 [facility] *ABN* (05/05/16 10:09 PM) BACTERIAL - MRSA by PCR Negative 05/06 SEROLOGY [facility] (05/05/16 10:06 PM) HEMATOLOGY Basophils # 0.1 K/CMM 0.0 - 0.2 05/06 [facility] HEMATOLOGY Microcyte 2+ None Seen 05/06 [facility] *ABN* (05/05/16 9:38 PM) HEMATOLOGY Eosinophils 1.4 % 0.0 - 4.0 05/06 [facility] HEMATOLOGY Basophils 0.7 % 0.0 - 1.0 05/06 [facility] HEMATOLOGY Segs-Bands # 7.1 K/CMM 1.5 - 8.1 05/06 /2015 [facility] HEMATOLOGY Lymphocytes 24.8 % 20.0 - 05/06 MH 40.0 /2015 [facility] HEMATOLOGY Monocytes 7.9 % 2.0 - 12.0 05/06 /2015 [facility] HEMATOLOGY Monocytes # 0.9 K/CMM 0.0 - 0.8 05/06 /2015 [facility] HEMATOLOGY Eosinophils 0.2 K/CMM 0.0 - 0.5 05/06 MH # /2015 [facility] HEMATOLOGY Lymphocytes 2.7 K/CMM 1.0 - 5.5 05/06 MH # /2015 [facility] HEMATOLOGY Segs 65.2 % 45.0 - 05/06 MH 75.0 /2015 [facility] HEMATOLOGY MCV 69.7 fL 80.0 - 05/06 MH 94.0 [facility] HEMATOLOGY MCH 23.3 pg 27.0 - 05/06 MH 31.0 [facility] HEMATOLOGY Hgb 12.2 g/dL 14.0 - 05/06 MH 18.0 [facility] HEMATOLOGY Hct 36.5 % 42.0 - 05/06 MH 54.0 [facility] HEMATOLOGY MCHC 33.4 g/dL 32.0 - 05/06 MH 36.0 [facility] HEMATOLOGY Platelet 276 K/CMM 133 - 450 05/06 /2015 [facility] HEMATOLOGY MPV 7.2 fL 7.4 - 10.4 05/06 /2015 [facility] HEMATOLOGY RDW 17.5 % 11.5 - 05/06 MH 14. [facility] HEMATOLOGY WBC X 10x3 11.0 K/CMM 3.7 - 10.4 05/06 [facility] HEMATOLOGY RBC X 10x6 5.24 M/CMM 4.70 - 05/06 MH 6.10 [facility] HEMATOLOGY INR 1.05 0.85 - 05/06 MH 1.17 [facility] HEMATOLOGY PROTIME 13.9 s 12.0 - 05/06 14. [facility] HEMATOLOGY aPTT 35.3 s 22.9 - 05/06 MH 35.8 [facility] CARDIAC CK-MB INDEX 1.0 0.0 - 2.5 05/05 ENZYMES /2015 [facility] CARDIAC CK MB 0.8 ng/mL 0.5 - 3.6 05/05 ENZYMES /2015 [facility] CARDIAC Total CK 80 unit/L 12 - 191 05/05 ENZYMES [facility] CARDIAC Troponin-I null 0.00 - 05/05 ENZYMES 0.40 [facility] CHEM PANEL Alk Phos 133 unit/L 39 - 136 05/05 [facility] CHEM PANEL Glucose Lvl 137 mg/dL 70 - 99 05/05 [facility] CHEM PANEL BUN 17 mg/dL 7 - 22 05/05 [facility] CHEM PANEL Creatinine 1.01 mg/dL 0.50 - 05/05 MH Lvl 1.40 [facility] CHEM PANEL Sodium Lvl 139 meq/L 135 - 145 05/05 [facility] CHEM PANEL ALANINE 34 unit/L 0 - 65 05/05 AMINOTRANSFE [facility] RASE CHEM PANEL Albumin Lvl 3.3 g/dL 3.5 - 5.0 05/05 [facility] CHEM PANEL Chloride Lvl 105 meq/L 95 - 109 05/05 [facility] CHEM PANEL eGFR 88 05/05 Result Comment: [...] is not recommended in the following populations: [address] Individuals with unstable creatinine concentrations, including [...] Total 0.4 mg/dL 0.2 - 1.3 05/05 [facility] CHEM PANEL Calcium Lvl 8.6 mg/dL 8.5 - 10.5 05/05 [facility] CHEM PANEL Potassium 3.7 meq/L 3.5 - 5.1 05/05 Lvl [facility] CHEM PANEL CO2 28 meq/L 24 - 32 05/05 [facility] CHEM PANEL Total 7.8 g/dL 6.4 - 8.4 05/05 [facility] CHEM PANEL ASPARTATE 16 unit/L 0 - 37 05/05 [facility] CHEM PANEL AGAP 9.7 meq/L 10.0 - 05/05 MH 20.0 [facility] CHEM PANEL B/C Ratio 17 6 - 25 05/05 [facility] CHEM PANEL Globulin 4.5 g/dL 2.7 - 4.2 05/05 [facility] CHEM PANEL A/G Ratio 0.7 0.7 - 1.6 05/05 [facility] HEMATOLOGY Monocytes # 0.8 K/CMM 0.0 - 0.8 05/05 [facility] HEMATOLOGY Eosinophils 0.1 K/CMM 0.0 - 0.5 05/05 # [facility] HEMATOLOGY Basophils # 0.1 K/CMM 0.0 - 0.2 05/05 [facility] HEMATOLOGY Microcyte 2+ None Seen 05/05 [facility] *ABN* (05/05/16 5:11 PM) HEMATOLOGY Monocytes 7.5 % 2.0 - 12.0 05/05 [facility] HEMATOLOGY Eosinophils 1.1 % 0.0 - 4.0 05/05 [facility] HEMATOLOGY Basophils 0.7 % 0.0 - 1.0 05/05 [facility] HEMATOLOGY Segs-Bands # 7.5 K/CMM 1.5 - 8.1 05/05 [facility] HEMATOLOGY Lymphocytes 2.1 K/CMM 1.0 - 5.5 05/05 [facility] HEMATOLOGY Lymphocytes 19.9 % 20.0 - 05/05 MH 40.0 [facility] HEMATOLOGY Segs 70.8 % 45.0 - 05/05 MH 75.0 [facility] HEMATOLOGY Platelet 306 K/CMM 133 - 450 05/05 [facility] HEMATOLOGY MCHC 33.6 g/dL 32.0 - 05/05 MH 36.0 [facility] HEMATOLOGY MPV 7.3 fL 7.4 - 10.4 05/05 [facility] HEMATOLOGY RDW 16.9 % 11.5 - 05/05 MH 14. [facility] HEMATOLOGY MCV 69.5 fL 80.0 - 05/05 MH 94.0 [facility] HEMATOLOGY MCH 23.4 pg 27.0 - 05/05 MH 31.0 [facility] HEMATOLOGY Hct 37.4 % 42.0 - 05/05 MH 54.0 [facility] HEMATOLOGY Hgb 12.6 g/dL 14.0 - 05/05 MH 18.0 [facility] HEMATOLOGY WBC X 10x3 10.6 K/CMM 3.7 - 10.4 05/05 [facility] HEMATOLOGY RBC X 10x6 5.39 M/CMM 4.70 - 05/05 MH 6.10 [facility] Chest 1view Chest 1view EXAM: Chest 1view DX 05/05 - [facility] DX DX /2015 - [place] DATE: 05/05/2016 4:55 PM [employer] INDICATION: Chest pain Read by: Tito Farnsworth MD Dictated Date/time: 05/05/16 17:34 COMPARISON: 03/05/2016. Electronically Signed by: Tito Farnsworth MD 05/05/16 17:34 FINAL REPORT IMPRESSION: Stable mildly enlarged cardiac silhouette. Atherosclerotic thoracic aorta. No focal consolidation, significant pleural effusion or pneumothorax. SL: [id number] CHEM PANEL Globulin 4.2 g/dL 2.7 - 4.2 04/25 [facility] CHEM PANEL B/C Ratio 19 6 - 25 04/25 [facility] CHEM PANEL AGAP 9.9 meq/L 10.0 - 04/25 20.0 [facility] CHEM PANEL A/G Ratio 0.8 0.7 - 1.6 04/25 [facility] CHEM PANEL eGFR 100 04/25 Result Comment: [...] is not recommended in the following populations: [address] Individuals with unstable creatinine concentrations, including [...] Phos 128 unit/L 39 - 136 04/25 [facility] CHEM PANEL Albumin Lvl 3.4 g/dL 3.5 - 5.0 04/25 [facility] CHEM PANEL ALANINE 30 unit/L 0 - 65 04/25 AMINOTRANSFE [facility] RASE CHEM PANEL Total 7.6 g/dL 6.4 - 8.4 04/25 Protein [facility] CHEM PANEL Bili Total 0.3 mg/dL 0.2 - 1.3 04/25 [facility] CHEM PANEL ASPARTATE 14 unit/L 0 - 37 04/25 TRANSAMINASE [facility] CHEM PANEL CO2 26 meq/L 24 - 32 04/25 [facility] CHEM PANEL Calcium Lvl 8.7 mg/dL 8.5 - 10.5 04/25 [facility] CHEM PANEL Chloride Lvl 104 meq/L 95 - 109 04/25 [facility] CHEM PANEL Potassium 3.9 meq/L 3.5 - 5.1 04/25 MH Lvl /2015 [facility] CHEM PANEL Glucose Lvl 221 mg/dL 70 - 99 04/25 [facility] CHEM PANEL Sodium Lvl 136 meq/L 135 - 145 04/25 [facility] CHEM PANEL Creatinine 0.91 mg/dL 0.50 - 04/25 MH Lvl 1.40 [facility] CHEM PANEL BUN 17 mg/dL 7 - 22 04/25 [facility] HEMATOLOGY RBC X 10x6 5.40 M/CMM 4.70 - 04/25 MH 6.10 [facility] HEMATOLOGY WBC X 10x3 10.3 K/CMM 3.7 - 10.4 04/25 [facility] HEMATOLOGY Hgb 12.9 g/dL 14.0 - 04/25 MH 18.0 [facility] HEMATOLOGY MPV 7.2 fL 7.4 - 10.4 04/25 [facility] HEMATOLOGY RDW 16.8 % 11.5 - 04/25 MH 14. [facility] HEMATOLOGY Platelet 313 K/CMM 133 - 450 04/25 [facility] HEMATOLOGY MCH 23.8 pg 27.0 - 04/25 MH 31.0 [facility] HEMATOLOGY MCHC 34.0 g/dL 32.0 - 04/25 36.0 /2015 [facility] HEMATOLOGY Hct 37.9 % 42.0 - 04/25 MH 54.0 /2015 [facility] HEMATOLOGY MCV 70.1 fL 80.0 - 04/25 94.0 /2015 [facility] HEMATOLOGY Lymphocytes 2.3 K/CMM 1.0 - 5.5 04/25 MH # /2016 [facility] HEMATOLOGY Eosinophils 0.1 K/CMM 0.0 - 0.5 04/25 # /2015 [facility] HEMATOLOGY Monocytes # 0.6 K/CMM 0.0 - 0.8 04/25 [facility] HEMATOLOGY Basophils # 0.1 K/CMM 0.0 - 0.2 04/25 [facility] HEMATOLOGY Microcyte 2+ None Seen 04/25 [facility] *ABN* (04/25/16 6:17 PM) HEMATOLOGY Segs 69.2 % 45.0 - 04/25 MH 75.0 /2015 [facility] HEMATOLOGY Segs-Bands # 7.1 K/CMM 1.5 - 8.1 04/25 [facility] HEMATOLOGY Monocytes 6.1 % 2.0 - 12.0 04/25 [facility] HEMATOLOGY Basophils 1.1 % 0.0 - 1.0 04/25 [facility] HEMATOLOGY Eosinophils 1.1 % 0.0 - 4.0 04/25 [facility] HEMATOLOGY Lymphocytes 22.5 % 20.0 - 04/25 40.0 /2016 [facility] URINE AND UA WBC 0-2 /HPF None Seen 04/25 STOOL /HPF [facility] URINE AND UA RBC 0-2 /HPF 0 - 2 04/25 STOOL [facility] URINE AND UA Bacteria Occasional None Seen 04/25 STOOL /HPF /HPF [facility] URINE AND UA Leuk Est Negative Negative 04/25 STOOL [facility] (04/25/16 6:17 PM) URINE AND UA Sq Epi Occasional Few /LPF 04/25 STOOL /LPF /2015 [facility] URINE AND UA pH 6.0 5.0 - 8.0 04/25 [facility] URINE AND UA Protein Negative Negative 04/25 STOOL [facility] (04/25/16 6:17 PM) URINE AND UA Glucose 250 mg/dL Negative 04/25 STOOL mg/dL /2015 [facility] URINE AND UA Ketones Negative Negative 04/25 STOOL [facility] *NA* (04/25/16 6:17 PM) URINE AND UA Bili Negative Negative 04/25 [facility] *NA* (04/25/16 6:17 PM) URINE AND UA Blood Negative Negative 04/25 [facility] (04/25/16 6:17 PM) URINE AND UA 0.2 EU/dL 0.1 - 1.0 04/25 [facility] Urobilinogen [place] URINE AND UA Nitrite Negative Negative 04/25 STOOL [place] (04/25/16 6:17 PM) URINE AND UA Color Yellow Yellow 04/25 [facility] *NA* (04/25/16 6:17 PM) URINE AND UA Turbidity Clear Clear 04/25 [facility] (04/25/16 6:17 PM) URINE AND UA Spec Grav 1.020 <=1.030 04/25 [facility] [place] Renal Stone Renal Stone EXAM: CT ABDOMEN AND PELVIS WITHOUT CONTRAST [facility] CT [facility] DATE: 04/25/2016 6:07 PM CDT Read by: [...] provided. IV contrast: None. CT Radiation Dose: JVU=0887.51 mGy-cm FINDINGS: Evaluation of the solid organs [...] infrarenal abdominal aorta without aneurysmal dilatation. SL: [id number] CARDIAC Troponin-I null 0.00 - 03/05 MH ENZYMES 0.40 /2015 [place] CARDIAC CK MB 0.8 ng/mL 0.5 - 3.6 03/05 MH ENZYMES /2016 [place] CARDIAC Total CK 60 unit/L - 191 03/05 MH ENZYMES /2016 [place] CARDIAC CK-MB INDEX 1.3 0.0 - 2.5 03/05 MH ENZYMES /2016 [place] CARDIAC Troponin-I null 0.00 - 03/05 MH ENZYMES 0.40 2016 [place] CARDIAC Total CK 66 unit/L - 191 03/05 MH ENZYMES /2016 [place] CARDIAC CK MB 0.6 ng/mL 0.5 - 3.6 03/05 MH ENZYMES /2016 [place] CARDIAC CK-MB INDEX 0.9 0.0 - 2.5 03/05 MH ENZYMES /2016 [place] CHEM PANEL eGFR 103 03/05 Result Comment: [...] is not recommended in the following populations: [address] Individuals with unstable creatinine concentrations, including [...] 12.0 meq/L 10.0 - 09 MH 20.0 [facility] CHEM PANEL Globulin 4.4 g/dL 2.7 - 4.2 03/05 [facility] CHEM PANEL B/C Ratio 14 6 - 25 03/05 [facility] CHEM PANEL A/G Ratio 0.8 0.7 - 1.6 03/05 [facility] CHEM PANEL Calcium Lvl 8.8 mg/dL 8.5 - 10.5 03/05 [facility] CHEM PANEL Bili Total 0.6 mg/dL 0.2 - 1.3 03/05 [facility] CHEM PANEL Total 7.8 g/dL 6.4 - 8.4 03/05 Protein [facility] CHEM PANEL ASPARTATE 16 unit/L 0 - 37 03/05 [facility] CHEM PANEL Alk Phos 128 unit/L 39 - 136 03/05 [facility] CHEM PANEL Glucose Lvl 97 mg/dL 70 - 99 03/05 [facility] CHEM PANEL Creatinine 0.88 mg/dL 0.50 - 03/05 MH Lvl 1.40 [facility] CHEM PANEL BUN 12 mg/dL 7 - 22 03/05 [facility] CHEM PANEL Sodium Lvl 138 meq/L 135 - 145 03/05 [facility] CHEM PANEL ALANINE 32 unit/L 0 - 65 03/05 AMINOTRANS [facility] RASE CHEM PANEL Albumin Lvl 3.4 g/dL 3.5 - 5.0 03/05 [facility] CHEM PANEL Potassium 4.0 meq/L 3.5 - 5.1 03/05 MH Lvl [place] CHEM PANEL Chloride Lvl 105 meq/L 95 - 109 03/05 [facility] CHEM PANEL CO2 25 meq/L 24 - 32 03/05 [facility] HEMATOLOGY Platelet 294 K/CMM 133 - 450 03/05 [facility] HEMATOLOGY MPV 7.4 fL 7.4 - 10.4 03/05 [facility] HEMATOLOGY WBC X 10x3 10.0 K/CMM 3.7 - 10.4 03/05 [facility] HEMATOLOGY RDW 16.6 % 11.5 - 03/05 MH 14.5 [facility] HEMATOLOGY MCH 24.1 pg 27.0 - 03/05 MH 31.0 [place] HEMATOLOGY MCHC 33.4 g/dL 32.0 - 03/05 MH 36.0 [facility] HEMATOLOGY MCV 72.2 fL 80.0 - 03/05 MH 94.0 [facility] HEMATOLOGY Hct 38.1 % 42.0 - 03/05 MH 54.0 [place] HEMATOLOGY RBC X 10x6 5.28 M/CMM 4.70 - 03/05 MH 6.10 [facility] HEMATOLOGY Hgb 12.7 g/dL 14.0 - 03/05 MH 18.0 [place] HEMATOLOGY Microcyte 1+ None Seen 03/05 [facility] *ABN* (03/05/16 7:30 AM) HEMATOLOGY Basophils # 0.1 K/CMM 0.0 - 0.2 03/05 [facility] HEMATOLOGY Monocytes # 0.7 K/CMM 0.0 - 0.8 03/05 [facility] HEMATOLOGY Eosinophils 0.1 K/CMM 0.0 - 0.5 03/05 MH # /2015 [place] HEMATOLOGY Segs-Bands # 7.5 K/CMM 1.5 - 8.1 03/05 [facility] HEMATOLOGY Lymphocytes 1.6 K/CMM 1.0 - 5.5 03/05 # /2015 [facility] HEMATOLOGY Eosinophils 1.2 % 0.0 - 4.0 03/05 [facility] HEMATOLOGY Basophils 0.6 % 0.0 - 1.0 03/05 [facility] HEMATOLOGY Segs 75.1 % 45.0 - 03/05 MH 75.0 [facility] HEMATOLOGY Monocytes 7.4 % 2.0 - 12.0 03/05 [facility] HEMATOLOGY Lymphocytes 15.7 % 20.0 - 03/05 40.0 [place] Chest 1view Chest 1view Patient Name: ANNABEL MCCONNELL 03/05 [facility] - [place] : 1970; Age: 45 years y/o Male MR: [id number] Read by: Jason Dozier MD Dictated Date/time: [...] unremarkable. IMPRESSION: 1. No active disease. SL: [id number] URINE AND UA RBC 0-2 /HPF 0 - 2 03/02 [facility] URINE AND UA Sq Epi None Seen Few 03/02 [facility] (03/02/16 8:22 AM) URINE AND UA WBC None Seen None Seen 03/02 [facility] (03/02/16 8:22 AM) URINE AND UA pH 6.0 5.0 - 8.0 03/02 [facility] URINE AND UA Protein Negative Negative 03/02 STOOL mg/dL mg/dL [facility] URINE AND UA Glucose Negative Negative 03/02 STOOL mg/dL mg/dL [facility] URINE AND UA Ketones Negative Negative 03/02 STOOL mg/dL mg/dL [facility] URINE AND UA Bili Negative Negative 03/02 [facility] *NA* (03/02/16 8:22 AM) URINE AND UA Color Yellow Yellow 03/02 [facility] *NA* (03/02/16 8:22 AM) URINE AND UA Turbidity Clear Clear 03/02 [facility] (03/02/16 8:22 AM) URINE AND UA Spec Grav 1.015 <=1.030 03/02 [facility] URINE AND UA Blood Negative Negative 03/02 [facility] (03/02/16 8:22 AM) URINE AND UA 0.2 EU/dL 0.1 - 1.0 03/02 STOOL Urobilinogen [facility] URINE AND UA Nitrite Negative Negative 03/02 [facility] (03/02/16 8:22 AM) URINE AND UA Leuk Est Negative Negative 03/02 STOOL [place] (03/02/16 8:22 AM) CHEM PANEL A/G Ratio 0.7 0.7 - 1.6 03/02 [facility] CHEM PANEL Globulin 4.6 g/dL 2.7 - 4.2 03/02 [facility] CHEM PANEL B/C Ratio 16 6 - 25 03/02 [facility] CHEM PANEL AGAP 10.4 meq/L 10.0 - 03/02 MH 20.0 [place] CHEM PANEL Total 8.0 g/dL 6.4 - 8.4 03/02 Protein [place] CHEM PANEL Bili Total 0.3 mg/dL 0.2 - 1.3 03/02 [facility] CHEM PANEL Calcium Lvl 8.7 mg/dL 8.5 - 10.5 03/02 [place] CHEM PANEL CO2 26 meq/L 24 - 32 03/02 [facility] CHEM PANEL Chloride Lvl 106 meq/L 95 - 109 03/02 [facility] CHEM PANEL Sodium Lvl 138 meq/L 135 - 145 03/02 [facility] CHEM PANEL Potassium 4.4 meq/L 3.5 - 5.1 03/02 Lv [facility] CHEM PANEL eGFR 83 03/02 Result Comment: [...] is not recommended in the following populations: [place] 3m2 Individuals with unstable creatinine concentrations, including [...] ASPARTATE 13 unit/L 0 - 37 03/02 [place] CHEM PANEL Creatinine 1.07 mg/dL 0.50 - 03/02 MH Lvl 1.40 /2015 [place] CHEM PANEL BUN 17 mg/dL 7 - 22 03/02 [facility] CHEM PANEL Glucose Lvl 106 mg/dL 70 - 99 03/02 [facility] CHEM PANEL Alk Phos 127 unit/L 39 - 136 03/02 [facility] CHEM PANEL Albumin Lvl 3.4 g/dL 3.5 - 5.0 03/02 [place] CHEM PANEL ALANINE 33 unit/L 0 - 65 03/02 AMINOTRANSFE /2015 [place] RASE CHEM PANEL Lipase Lvl 164 unit/L 73 - 393 03/02 [place] HEMATOLOGY Basophils # 0.1 K/CMM 0.0 - 0.2 03/02 [place] HEMATOLOGY Microcyte 1+ None Seen 03/02 [place] *ABN* (03/02/16 5:41 AM) HEMATOLOGY Monocytes 6.7 % 2.0 - 12.0 03/02 [facility] HEMATOLOGY Lymphocytes 21.9 % 20.0 - 03/02 MH 40.0 [place] HEMATOLOGY Eosinophils 1.5 % 0.0 - 4.0 03/02 [place] HEMATOLOGY Segs 69.1 % 45.0 - 03/02 75.0 [facility] HEMATOLOGY Monocytes # 0.8 K/CMM 0.0 - 0.8 03/02 [place] HEMATOLOGY Lymphocytes 2.6 K/CMM 1.0 - 5.5 03/02 MH # [place] HEMATOLOGY Eosinophils 0.2 K/CMM 0.0 - 0.5 03/02 MH [place] HEMATOLOGY Segs-Bands # 8.1 K/CMM 1.5 - 8.1 03/02 [place] HEMATOLOGY Basophils 0.8 % 0.0 - 1.0 03/02 [place] HEMATOLOGY WBC X 10x3 11.8 K/CMM 3.7 - 10.4 03/02 [facility] HEMATOLOGY Hct 37.4 % 42.0 - 03/02 MH 54.0 [place] HEMATOLOGY RBC X 10x6 5.18 M/CMM 4.70 - 03/02 MH 6.10 [facility] HEMATOLOGY Hgb 12.5 g/dL 14.0 - 03/02 MH 18.0 /2015 [place] HEMATOLOGY MCH 24.1 pg 27.0 - 03/02 MH 31.0 /2015 [place] HEMATOLOGY RDW 16.7 % 11.5 - 03/02 MH 14.5 /2015 [place] HEMATOLOGY MCHC 33.4 g/dL 32.0 - 03/02 MH 36.0 /2015 [place] HEMATOLOGY MCV 72.1 fL 80.0 - 03/02 94.0 /2015 [facility] HEMATOLOGY MPV 7.7 fL 7.4 - 10.4 03/02 [facility] HEMATOLOGY Platelet 303 K/CMM 133 - 450 03/02 [place] Chest/Abdom Chest/Abdome CT THORAX/ABDOMEN/PELVIS WITH IV CONTRAST WITH SAGITTAL AND CORONAL REFORMATTED IMAGES 03/02 - [facility] en/Pelvis w n/Pelvis w - [place] IV contrast IV contrast CT CT HISTORY: [...] colonic diverticulosis, small abdominal aortic aneurysm. SL: [id number] Abdomen RUQ Abdomen RUQ ULTRASOUND ABDOMEN RIGHT UPPER QUADRANT 03/02 - [facility] US US /2015 - [place] HISTORY: Abdominal pain, acute; right flank pain [...] steatosis. 2. Otherwise normal abdominal ultrasound. SL: [id number] Renal Stone Renal Stone Patient Name: ANNABEL MCCONNELL 03/02 [facility] CT /2015 [facility] : 1970; Age: 45 years y/o Male MR: [id number] Read by: John Paul Carrero MD Dictated Date/time: 03/02/16 05:55 Electronically Signed by: John Paul Carrero MD 03/02/16 05:59 FINAL REPORT Study: Renal Stone CT 03/02/2016 5:25 AM CDT Ordering Physician: Clinical Indication: Abdominal pain, acute; Comparison: None TECHNIQUE: Noncontrasted helical imaging was performed from the kidneys through the symphysis as a renal stone protocol. Multiplanar reformations are available. CT Radiation Dose: YGE=[id number] mGy-cm FINDINGS: This examination is limited for [...] - 5.1 02/18 MH S Lvl /2015 [place] ELECTROLYTE Chloride Lvl 104 meq/L 95 - 109 02/18 S [place] ELECTROLYTE Sodium Lvl 136 meq/L 135 - 145 02/18 MH S /2015 [place] ELECTROLYTE Glucose Lvl 147 mg/dL 70 - 99 02/18 MH S [place] ELECTROLYTE Creatinine 0.88 mg/dL 0.50 - 02/18 MH S Lvl 1.40 [place] ELECTROLYTE BUN 10 mg/dL 7 - 22 02/18 MH S /2015 [place] ELECTROLYTE eGFR 103 02/18 Result Comment: The [...] is not recommended in the following populations: [place] 3m2 Individuals with unstable creatinine concentrations, including [...] 8.5 - 10.5 02/18 MH S /2015 [place] ELECTROLYTE CO2 24 meq/L 24 - 32 02/18 MH S /2015 [place] ELECTROLYTE AGAP 12.4 meq/L 10.0 - 02/18 MH S 20.0 [place] HEMATOLOGY RDW 16.3 % 11.5 - 02/18 MH 14. [place] HEMATOLOGY Platelet 273 K/CMM 133 - 450 02/18 [place] HEMATOLOGY MPV 7.5 fL 7.4 - 10.4 02/18 [place] HEMATOLOGY Hgb 12.8 g/dL 14.0 - 02/18 MH 18.0 [place] HEMATOLOGY RBC X 10x6 5.31 M/CMM 4.70 - 02/18 MH 6.10 [place] HEMATOLOGY WBC X 10x3 11.1 K/CMM 3.7 - 10.4 02/18 [place] HEMATOLOGY MCV 72.6 fL 80.0 - 02/18 MH 94.0 [place] HEMATOLOGY Hct 38.6 % 42.0 - 02/18 MH 54.0 [place] HEMATOLOGY MCH 24.1 pg 27.0 - 02/18 MH 31.0 [place] HEMATOLOGY MCHC 33.1 g/dL 32.0 - 02/18 MH 36.0 [place] CARDIAC Troponin-I null 0.00 - 02/17 MH ENZYMES 0.40 [facility] HEMATOLOGY Monocytes 7.9 % 2.0 - 12.0 02/17 [facility] HEMATOLOGY Lymphocytes 20.8 % 20.0 - 02/17 MH 40.0 [facility] HEMATOLOGY Segs 69.1 % 45.0 - 02/17 MH 75.0 [facility] HEMATOLOGY Lymphocytes 2.2 K/CMM 1.0 - 5.5 02/17 MH /2015 [facility] HEMATOLOGY Monocytes # 0.8 K/CMM 0.0 - 0.8 02/17 [facility] HEMATOLOGY Eosinophils 1.6 % 0.0 - 4.0 02/17 [facility] HEMATOLOGY Segs-Bands # 7.5 K/CMM 1.5 - 8.1 02/17 [facility] HEMATOLOGY Basophils 0.6 % 0.0 - 1.0 02/17 [facility] HEMATOLOGY Microcyte 1+ None Seen 02/17 [facility] *ABN* (02/18/16 5:20 AM) HEMATOLOGY Basophils # 0.1 K/CMM 0.0 - 0.2 02/17 [facility] HEMATOLOGY Eosinophils 0.2 K/CMM 0.0 - 0.5 02/17 MH # /2015 [facility] HEMATOLOGY RBC X 10x6 4.91 M/CMM 4.70 - 02/17 MH 6.10 [facility] HEMATOLOGY WBC X 10x3 10.8 K/CMM 3.7 - 10.4 02/17 [facility] HEMATOLOGY MCH 24.1 pg 27.0 - 02/17 MH 31.0 [facility] HEMATOLOGY MCV 73.1 fL 80.0 - 02/17 MH 94.0 [facility] HEMATOLOGY Hct 35.9 % 42.0 - 02/17 MH 54.0 [facility] HEMATOLOGY Hgb 11.8 g/dL 14.0 - 02/17 MH 18.0 [facility] HEMATOLOGY MPV 7.4 fL 7.4 - 10.4 02/17 [facility] HEMATOLOGY RDW 16.3 % 11.5 - 02/17 14.5 [facility] HEMATOLOGY MCHC 33.0 g/dL 32.0 - 02/17 MH 36.0 [facility] HEMATOLOGY Platelet 270 K/CMM 133 - 450 02/17 [facility] CARDIAC Troponin-I null 0.00 - 02/16 ENZYMES 0. [facility] CHEM PANEL Procalcitoni null 0.00 - 02/16 n Lvl 0.10 [facility] CARDIAC Troponin-I null 0.00 - 02/16 ENZYMES 0.40 [facility] URINE AND UA Bacteria None Seen None Seen 02/16 STOOL /2015 [facility] (02/17/16 6:27 AM) URINE AND UA RBC None Seen 0 - 2 02/16 STOOL /2015 [facility] (02/17/16 6:27 AM) URINE AND UA Mucus Few /LPF None Seen 02/16 STOOL /LPF /2015 [facility] URINE AND UA Sq Epi Rare /LPF Few /LPF 02/16 STOOL [facility] URINE AND UA WBC 0-2 /HPF None Seen 02/16 STOOL /HPF /2015 [facility] URINE AND UA Leuk Est Negative Negative 02/16 STOOL /2015 [facility] (02/17/16 6:27 AM) URINE AND UA 0.2 EU/dL 0.1 - 1.0 02/16 STOOL Urobilinogen [facility] URINE AND UA Nitrite Negative Negative 02/16 STOOL [facility] (02/17/16 6:27 AM) URINE AND UA Spec Grav 1.025 <=1.030 02/16 STOOL [facility] URINE AND UA Turbidity Clear Clear 02/16 STOOL [facility] (02/17/16 6:27 AM) URINE AND UA Color Yellow Yellow 02/16 STOOL [facility] *NA* (02/17/16 6:27 AM) URINE AND UA Bili Negative Negative 02/16 STOOL [facility] *NA* (02/17/16 6:27 AM) URINE AND UA Blood Negative Negative 02/16 STOOL [facility] (02/17/16 6:27 AM) URINE AND UA Ketones Negative Negative 02/16 STOOL mg/dL mg/dL [facility] URINE AND UA Glucose Negative Negative 02/16 STOOL mg/dL mg/dL [facility] URINE AND UA pH 6.0 5.0 - 8.0 02/16 STOOL [facility] URINE AND UA Protein Negative Negative 02/16 STOOL mg/dL mg/dL [facility] CARDIAC CK-MB INDEX 1.6 0.0 - 2.5 02/16 ENZYMES [facility] CARDIAC CK MB 0.9 ng/mL 0.5 - 3.6 02/16 ENZYMES [facility] CARDIAC Total CK 58 unit/L 12 - 191 02/16 ENZYMES [facility] CHEM PANEL eGFR 93 02/16 Result Comment: [...] is not recommended in the following populations: [facility] 3m2 Individuals with unstable creatinine concentrations, including [...] 33 unit/L 0 - 65 02/16 AMINOTRANS [facility] RASE CHEM PANEL CO2 23 meq/L 24 - 32 02/16 [facility] CHEM PANEL Calcium Lvl 8.8 mg/dL 8.5 - 10.5 02/16 [facility] CHEM PANEL Potassium 4.0 meq/L 3.5 - 5.1 02/16 MH Lvl [facility] CHEM PANEL Chloride Lvl 105 meq/L 95 - 109 02/16 [facility] CHEM PANEL Creatinine 0.97 mg/dL 0.50 - 02/16 MH Lvl 1.40 [facility] CHEM PANEL Glucose Lvl 103 mg/dL 70 - 99 02/16 [facility] CHEM PANEL BUN 11 mg/dL 7 - 22 02/16 [facility] CHEM PANEL Albumin Lvl 3.4 g/dL 3.5 - 5.0 02/16 [facility] CHEM PANEL Alk Phos 128 unit/L 39 - 136 02/16 [facility] CHEM PANEL Bili Total 0.5 mg/dL 0.2 - 1.3 02/16 [facility] CHEM PANEL Sodium Lvl 139 meq/L 135 - 145 02/16 [facility] CHEM PANEL AGAP 15.0 meq/L 10.0 - 02/16 MH 20.0 [facility] CHEM PANEL B/C Ratio 11 6 - 25 02/16 [facility] CHEM PANEL Total 8.0 g/dL 6.4 - 8.4 02/16 [facility] CHEM PANEL ASPARTATE 16 unit/L 0 - 37 02/16 [facility] CHEM PANEL Globulin 4.6 g/dL 2.7 - 4.2 02/16 [facility] CHEM PANEL A/G Ratio 0.7 0.7 - 1.6 02/16 [facility] HEMATOLOGY Microcyte 1+ None Seen 02/16 [facility] *ABN* (02/17/16 5:50 AM) HEMATOLOGY Basophils # 0.1 K/CMM 0.0 - 0.2 02/16 [facility] HEMATOLOGY Basophils 0.5 % 0.0 - 1.0 02/16 [facility] HEMATOLOGY Lymphocytes 2.4 K/CMM 1.0 - 5.5 02/16 MH # /2015 [facility] HEMATOLOGY Monocytes # 0.8 K/CMM 0.0 - 0.8 02/16 [facility] HEMATOLOGY Eosinophils 0.1 K/CMM 0.0 - 0.5 02/16 MH # /2015 [facility] HEMATOLOGY Segs-Bands # 8.7 K/CMM 1.5 - 8.1 02/16 [facility] HEMATOLOGY Eosinophils 1.2 % 0.0 - 4.0 02/16 [facility] HEMATOLOGY Segs 72.1 % 45.0 - 02/16 MH 75.0 [facility] HEMATOLOGY Lymphocytes 19.8 % 20.0 - 02/16 MH 40.0 [facility] HEMATOLOGY Monocytes 6.4 % 2.0 - 12.0 02/16 [facility] Platelet 327 K/CMM 133 - 450 02/16 [facility] MCH 24.1 pg 27.0 - 02/16 31.0 [facility] MCHC 33.3 g/dL 32.0 - 02/16 36.0 [facility]AT[facility] MPV 7.6 fL 7.4 - 10.4 02/16 [facility]AT[facility] RDW 16.3 % 11.5 - 02/16 14.5 [facility] Hgb 13.1 g/dL 14.0 - 02/16 18.0 [facility] Hct 39.5 % 42.0 - 02/16 54.0 [facility] WBC X 10x3 12.0 K/CMM 3.7 - 10.4 02/16 [facility] RBC X 10x6 5.45 M/CMM 4.70 - 02/16 MH 6.10 [facility]EMAT[facility] MCV 72.6 fL 80.0 - 02/16 94.0 [facility] Renal Stone Renal Stone Patient Name: ANNABEL MCCONNELL 02/16 - [facility] [place] [facility] [place] : 1970; Age: 45 years Male MR: [id number] Read by: Sundar Jeffrey MD Dictated Date/time: 02/17/16 05:53 Electronically Signed by: Sundar Jefrfey MD 02/17/16 06:01 FINAL REPORT Study: Renal Stone CT 02/17/2016 5:26 AM CDT Clinical Indication: Flank Pain. NE. STATED RT. FLANK PAIN AND UPPER CHEST [...] small left renal cyst. 7. Cardiomegaly. SL: [id number] Chest 1view Chest 1view Patient Name: ANNABEL MCCONNELL 02/16 [facility] DX DX [place] : 1970; Age: 45 years y/o Male MR: [id number] Read by: Jaun Guillermo MD Dictated Date/time: [...] Date Comments Source Respitory Rate 18 05/17/2016 [facility] Temperature Oral (F) 98.1 F 05/17/2016 [facility] Heart Rate 72 05/17/2016 [facility] Systolic (mm Hg) 116 05/17/2016 [facility] Diastolic (mm Hg) 76 05/17/2016 [facility] Weight 128.636 05/17/2016 [facility] Temperature Oral (F) 97.6 F 05/17/2016 [facility] Respitory Rate 16 05/17/2016 [facility] Heart Rate 79 05/17/2016 [facility] Systolic (mm Hg) 100 05/17/2016 [facility] Diastolic (mm Hg) 69 05/17/2016 [facility] Respitory Rate 16 05/06/2016 [facility] Systolic (mm Hg) 134 05/06/2016 [facility] Diastolic (mm Hg) 84 05/06/2016 [facility] Heart Rate 61 05/06/2016 [facility] Temperature Oral (F) 97.9 F 05/06/2016 [facility] Respitory Rate 14 05/06/2016 [facility] Temperature Oral (F) 97.4 F 05/06/2016 [facility] Systolic (mm Hg) 117 05/06/2016 [facility] Diastolic (mm Hg) 77 05/06/2016 [facility] Respitory Rate 18 05/06/2016 [facility] Heart Rate 56 05/06/2016 [facility] Systolic (mm Hg) 120 05/06/2016 [facility] Diastolic (mm Hg) 77 05/06/2016 [facility] Heart Rate 62 05/06/2016 [facility] Temperature Oral (F) 97.9 F 05/06/2016 [facility] Weight 131.7 05/06/2016 [facility] BMI Calculated 41.66 05/06/2016 [facility] Height 177.8 cm 05/06/2016 [facility] Weight 127.273 05/05/2016 [facility] Systolic (mm Hg) 118 04/26/2016 [facility] Diastolic (mm Hg) 64 04/26/2016 [facility] Respitory Rate 18 04/26/2016 [facility] Heart Rate 78 04/26/2016 [facility] Temperature Oral (F) 97.4 F 04/26/2016 [facility] Weight 128.182 04/25/2016 [facility] BMI Calculated 40.55 04/25/2016 [facility] Height 177.8 cm 04/25/2016 [facility] Respitory Rate 18 04/25/2016 [facility] Temperature Oral (F) 97.2 F 04/25/2016 [facility] Heart Rate 80 04/25/2016 [facility] Systolic (mm Hg) 137 04/25/2016 [facility] Diastolic (mm Hg) 85 04/25/2016 [facility] Temperature Oral (F) 98.7 F 03/05/2016 [facility] Respitory Rate 16 03/05/2016 [facility] Systolic (mm Hg) 127 03/05/2016 [facility] Diastolic (mm Hg) 68 03/05/2016 [facility] Respitory Rate 16 03/05/2016 [facility] Systolic (mm Hg) 124 03/05/2016 [facility] Diastolic (mm Hg) 76 03/05/2016 [facility] Systolic (mm Hg) 127 03/05/2016 [facility] Diastolic (mm Hg) 77 03/05/2016 [facility] Height 177.8 cm 03/05/2016 [facility] BMI Calculated 40.83 03/05/2016 [facility] Weight 129.091 03/05/2016 [facility] Heart Rate 62 03/05/2016 [facility] Temperature Oral (F) 98.9 F 03/05/2016 [facility] Respitory Rate 18 03/05/2016 [facility] Temperature Oral (F) 98.2 F 03/02/2016 [facility] Heart Rate 58 03/02/2016 [facility] Respitory Rate 16 03/02/2016 [facility] Systolic (mm Hg) 120 03/02/2016 [facility] Diastolic (mm Hg) 66 03/02/2016 [facility] Heart Rate 50 03/02/2016 [facility] Weight 128.636 03/02/2016 [facility] Temperature Oral (F) 98.0 F 03/02/2016 [facility] Respitory Rate 18 03/02/2016 [facility] Systolic (mm Hg) 149 03/02/2016 [facility] Diastolic (mm Hg) 87 03/02/2016 [facility] Heart Rate 69 03/02/2016 [facility] Systolic (mm Hg) 107 02/20/2016 [facility] Diastolic (mm Hg) 66 02/20/2016 [facility] Temperature Oral (F) 98.0 F 02/20/2016 [facility] Respitory Rate 17 02/20/2016 [facility] Heart Rate 81 02/20/2016 [facility] Heart Rate 73 02/19/2016 [facility] Respitory Rate 17 02/19/2016 [facility] Temperature Oral (F) 97.8 F 02/19/2016 [facility] Systolic (mm Hg) 96 02/19/2016 [facility] Diastolic (mm Hg) 63 02/19/2016 [facility] Systolic (mm Hg) 128 02/19/2016 [facility] Diastolic (mm Hg) 84 02/19/2016 [facility] Heart Rate 82 02/19/2016 [facility] Temperature Oral (F) 97.9 F 02/19/2016 [facility] Respitory Rate 17 02/19/2016 [facility] Height 177.8 cm 02/17/2016 [facility] BMI Calculated 40.98 02/17/2016 [facility] Weight 129.545 02/17/2016 [facility] Weight 129.545 02/17/2016 [facility] BMI Calculated 40.98 02/17/2016 [facility] Height 177.8 cm 02/17/2016 [facility] Encounters Location Location Encounter Encounter Reason Attending ADM DC Status Source Details Type Number For Provider Date Date [facility] [id number] Osmar 02/16 02/19 Freddy Roberts /2015 [facility] [id number] Fei 03/02 03/02 Freddy Partida /2015 [facility] [id number] Rachel Platt 03/05 03/05 Freddy /2015 [facility] [id number] Agustin 04/25 04/26 Freddy Lopez /2015 [facility] [id number] Geronimo 05/05 05/07 Freddy Dupont /2015 [facility] [id number] Karey 05/17 05/18 Freddy Zuleta /2015 [facility] Procedures Procedure Code Date Perfomer Comments Source Catheterization of [id number] [facility] right heart Lithotripsy [id number] [facility] Placement of stent in [id number] R RCA 100% [facility] cardiac blockage conduit<sup>1</sup>
[2018-05-23 10:45] LABS: Absolute Monocytes 0.6 K/uL (0.1-1.3); Absolute Neutrophil 5.7 K/uL (1.8-8.0); Basophils % 0.6 % (0-1.3); Eosinophils % 1.2 % (0-4.4); Hematocrit 38.3 % (39.6-49.0); Lymphocytes % 23.3 % (15.3-44.8); MCH 26.6 pg (27.0-35.0); MCV 76.5 fL (80-100); MPV 7.7 fL (7.6-11.3); Monocytes % 7.7 % (3.3-12.3); RBC Red Blood Cell Count 5.01 M/uL (4.33-5.43)
[2018-05-23 10:48] LABS: Protime INR 3.03
[2018-05-23] MEDS ORDERED: ASPIRIN 81 MG CHEWABLE TABLET ONE (10:54)
[2018-05-23] MEDS ORDERED: ONDANSETRON 4 MG/2 ML VIAL ONE (10:55)
[2018-05-23] MEDS ORDERED: NITROGLYCERIN 0.4 MG/TAB SL ONE (10:55)
[2018-05-23 11:09] LABS: ALT/SGPT 35 U/L (12-78); AST/SGOT 16 U/L (15-37); Albumin 3.2 g/dL (3.4-5.0); Alkaline Phosphatase 118 U/L (45-117); BUN Blood Urea Nitrogen 14 mg/dL (7-18); Bicarbonate 27 mmol/L (21-32); Bilirubin Direct 0.2 mg/dL (0-0.2); Bilirubin Total 0.4 mg/dL (0.2-1.0); Glucose Level 126 mg/dL (74-106); Magnesium 2.3 mg/dL (1.8-2.4); NT PRO-BNP 23 pg/mL (<125); Potassium 3.4 mmol/L (3.5-5.1); Protein, Total 8.3 g/dL (6.4-8.2); Sodium Level 134 mmol/L (136-145); Troponin (Emerg Dept Use Only) < 0.02 ng/mL (0.0-0.045)
[2018-05-23] MEDS ORDERED: KETOROLAC 30 MG/ML INJ ONE (11:49)
--- NOTE | 2018-05-23 12:22 | RAD REPORT ---
EXAM DESCRIPTION: RAD - Chest Single View - 05/23/2018 11:42 am CLINICAL HISTORY: CHEST PAIN Chest pain. COMPARISON: Chest Single View dated 01/21/2018; Chest Single View dated 01/11/2018; Chest Single View d ated 01/09/2018; Chest Single View dated 12/25/2017 FINDINGS: Portable technique limits examination quality. The lungs are grossly clear. The heart is normal in size. No displaced fractures. IMPRESSION: No acute intrathoracic process suspected.
[2018-05-23 12:56] LABS: Barbiturates NEGATIVE (NEGATIVE); Benzodiazepines NEGATIVE (NEGATIVE); Cocaine NEGATIVE (NEGATIVE); METHAMPHETAM NEGATIVE (NEGATIVE); Methadone NEGATIVE (NEGATIVE); Opiates NEGATIVE (NEGATIVE); Phencyclidine NEGATIVE (NEGATIVE); THC Cannibis NEGATIVE (NEGATIVE)
[2018-05-23] MEDS ORDERED: MORPHINE 4 MG/ML SYR ONE ×3 (13:06→17:06)
[2018-05-23 14:06] LABS: Urine Blood NEGATIVE (NEG); Urine Glucose NEGATIVE (NEG); Urine Protein NEGATIVE (NEG)
--- NOTE | 2018-05-23 15:02 | EDPHYS ---
Physician Documentation [facility] Name: Marquis Nelson Age: 48 yrs Sex: Male : 1970 Arrival Date: 05/23/2018 Time: 10:05 Bed 15 Private MD: None, None ED Physician Jose Nolasco HPI: 05/23 10:28 This 48 yrs old Male presents to ER via Ambulatory with complaints of Chest cp Pain. 10:30 The patient or guardian reports chest pain that is located primarily in the substernal cp area, right side. 10:30 Onset: 20 minute(s) ago. The pain does not radiate. Associated signs and symptoms: cp Pertinent positives: nausea, shortness of breath, Pertinent negatives: abdominal pain, dizziness, headache, lower extremity pain, lower extremity swelling, palpitations, vomiting. The chest pain is described as clutching. Duration: The patient or guardian reports a single episode, that is still ongoing. Severity of pain: At its worst the pain was a 10 / 10 in the emergency department the pain is unchanged. The patient has experienced similar episodes in the past, multiple times. Historical: - Allergies: 10:10 Beta Blockers (sensitive/hypotension); sg 10:10 Demerol; sg 10:10 Flomax; sg 10:10 Neurontin; sg 10:10 Skelaxin; sg 10:10 Spironolactone; sg 10:10 Stadol; sg 10:10 tramadol; sg - Home Meds: 10:15 allopurinol 300 mg Oral tab 1 tab once daily [Active]; amlodipine 5 mg tab 1 tab once rb1 daily [Active]; atorvastatin 40 mg Oral tab 1 tab once daily [Active]; clonazepam 1 mg Oral TbDL 2 times per day [Active]; docusate sodium 100 mg Oral tab 2 times per day [Active]; furosemide 80 mg Oral tab 2 times per day [Active]; Inspra 50 mg Oral tab 1 tab 2 times per day [Active]; Lovenox 120 mg/0.8 mL Sub-Q syrg once daily [Active]; metolazone 2.5 mg Oral tab as needed [Active]; metoprolol succinate 6.25mg Oral Tb24 as needed [Active]; Nitrostat SL as needed [Active]; pantoprazole 40 mg Oral TbEC 1 tab once daily [Active]; Plavix 75 mg Oral tab 1 tab once daily [Active]; Potassium Chloride 60MEQ Oral 3 times per day [Active]; Ranexa 1,000 mg Oral TM12 [Active]; Robaxin Oral [Active]; warfarin 10 mg on MWF and 7.5 mg on T,Th,Sat, Sun Oral tab 1 tab once daily [Active]; Trulicity subcutaneous subcutaneous once wkly [Active]; metformin 500 mg Oral tab 1 tab 3 times a day [Active]; Folic Acid Oral [Active]; Magnesium Oxide Oral [Active]; - PMHx: 10:10 AAA; ADD/ADHD; Anemia; Anxiety; Atrial Fib; CHF; GERD; High Cholesterol; Hypertension; sg Kidney stones; Myocardial infarction; Pulmonary Embolism; R BUNDLE BRANCH BLOCK; Sleep Apnea; - PSHx: 10:10 Hernia repair; renal surgery; Heart stents; internal holter monitor; sg - Immunization history:: Adult Immunizations up to date. - Social history:: Smoking status: . - Ebola Screening: : Patient negative for fever greater than or equal to 101.5 degrees Fahrenheit, and additional compatible Ebola Virus Disease symptoms Patient denies exposure to infectious person Patient denies travel to an Ebola-affected area in the 21 days before illness onset No symptoms or risks identified at this time. ROS: 10:35 Constitutional: Negative for body aches, chills, fever, poor PO intake. cp 10:35 Eyes: Negative for injury, pain, redness, and discharge. cp 10:35 ENT: Negative for drainage from ear(s), ear pain, sore throat, difficulty swallowing, difficulty handling secretions. 10:35 Cardiovascular: Positive for chest pain, Negative for edema, palpitations. 10:35 Respiratory: Negative for cough, wheezing. 10:35 Abdomen/GI: Negative for vomiting, diarrhea, constipation, black/tarry stool, rectal bleeding. 10:35 Skin: Negative for cellulitis, rash. 10:35 Neuro: Negative for altered mental status, headache, syncope, near syncope, weakness. 10:35 All other systems are negative. Exam: 10:40 Constitutional: The patient appears alert, awake, non-diaphoretic, non-toxic, well cp developed, well nourished, obese, uncomfortable. 10:40 Head/Face: Normocephalic, atraumatic. Eyes: Pupils equal round and reactive to light, cp extra-ocular motions intact. Lids and lashes normal. Conjunctiva and sclera are non-icteric and not injected. Cornea within normal limits. Periorbital areas with no swelling, redness, or edema. ENT: Nares patent. No nasal discharge, no septal abnormalities noted. Tympanic membranes are normal and external auditory canals are clear. Oropharynx with no redness, swelling, or masses, exudates, or evidence of obstruction, uvula midline. Mucous membranes moist. Neck: Trachea midline, no thyromegaly or masses palpated, and no cervical lymphadenopathy. Supple, full range of motion without nuchal rigidity, or vertebral point tenderness. No Meningismus. Chest/axilla: Normal chest wall appearance and motion. Nontender with no deformity. No lesions are appreciated. 10:40 Cardiovascular: Rate: normal, Rhythm: regular, Heart sounds: murmur, not appreciated, Edema: is not appreciated, JVD: is not appreciated. 10:40 Respiratory: the patient does not display signs of respiratory distress, Respirations: normal, no use of accessory muscles, no retractions, no splinting, no tachypnea, labored breathing, is not present, Breath sounds: are clear throughout, no decreased breath sounds, no stridor, no wheezing. 10:40 Abdomen/GI: Inspection: obese Bowel sounds: active, all quadrants, Palpation: abdomen is soft and non-tender, in all quadrants, rebound tenderness, is not appreciated, voluntary guarding, is not appreciated, involuntary guarding, is not appreciated. 10:40 Skin: cellulitis, is not appreciated, no rash present. 10:40 Neuro: Orientation: to person, place \T\ time. Mentation: is normal, Cerebellar function: is grossly normal, Motor: moves all fours, strength is normal, Sensation: is normal. Vital Signs: 10:08 BP 122 / 85; Pulse 91 MON; Resp 22 S; Temp 97.8(TE); Pulse Ox 100% on R/A; Pain 10/10; sg 11:00 BP 102 / 58; Pulse 76; Resp 14; Pulse Ox 95% on R/A; rb1 12:00 BP 107 / 55; Pulse 88; Resp 13; Pulse Ox 95% on R/A; Pain 7/10; rb1 13:00 BP 101 / 69; Pulse 83; Resp 14; Pulse Ox 98% on R/A; rb1 14:00 BP 113 / 69; Pulse 80; Resp 15; Pulse Ox 94% on R/A; rb1 14:10 BP 124 / 69; Pulse 79; Resp 15; Pulse Ox 99% on R/A; Pain 9/10; em 15:00 BP 110 / 62; Pulse 81; Resp 17; Pulse Ox 95% on R/A; rb1 16:00 BP 111 / 63; Pulse 81; Resp 12; Pulse Ox 95% on R/A; rb1 17:00 BP 116 / 58; Pulse 81; Resp 15; Pulse Ox 96% on R/A; Pain 8/10; rb1 18:00 BP 107 / 59; Pulse 79; Resp 13; Pulse Ox 96% on R/A; rb1 MDM: 10:20 Patient medically screened. cp 11:00 Differential diagnosis: abnormal EKG, acute myocardial infarction, acute pericarditis, cp chest wall pain, pancreatitis, pericarditis, pneumonia, pneumothorax, pulmonary embolus, stable angina, thoracic aortic disection, unstable angina. 13:00 Data reviewed: vital signs, nurses notes. cp 13:00 The patient was given aspirin in the Emergency Department. Test interpretation: by ED cp physician or midlevel provider: ECG, plain radiologic studies. Response to treatment: improved. 16:30 ED course: VSS. Patient continues to report intermittent pain. Repeat EKG negative for cp ST changes. 17:00 Physician consultation: was contacted at 16:45, regarding regarding transfer, to [facility]. patient's condition, DR Monge, telephone solicitor supervisor [facility]. 05/23 10:25 Order name: Basic Metabolic Panel cp 05/23 10:25 Order name: CBC with Diff cp 05/23 10:25 Order name: LFT's cp 05/23 10:25 Order name: Magnesium cp 05/23 10:25 Order name: NT PRO-BNP cp 05/23 10:25 Order name: PT-INR cp 05/23 10:25 Order name: Troponin (emerg Dept Use Only) cp 05/23 10:46 Order name: CBC with Automated Diff; Complete Time: 11:32 EDMS 05/23 11:32 Interpretation: Normal except: HGB 13.4; HCT 38.3; MCV 76.5; MCH 26.6; RDW 17.3. 05/23 10:50 Order name: Protime (+INR); Complete Time: 11:32 EDMS 12 12:26 Interpretation: Abnormal: PT 36.2. 05/23 11:09 Order name: Basic Metabolic Panel; Complete Time: 11:32 EDMS 12 11:32 Interpretation: Normal except: NA 134; K 3.4; GLUC 126; GFR 79. 05/23 11:09 Order name: Liver (Hepatic) Function; Complete Time: 11:32 EDMS 12 12:26 Interpretation: Normal except: ALK 118; TP 8.3; ALB 3.2; GLOB 5.1; A/G 0.6. 05/23 11:09 Order name: Troponin (Emerg Dept Use Only); Complete Time: 11:32 EDMS 05/23 11:09 Order name: NT PRO-BNP; Complete Time: 11:32 EDMS 05/23 11:09 Order name: Magnesium; Complete Time: 11:32 EDMS 05/23 10:25 Order name: XRAY Chest (1 view) 05/23 12:22 Order name: RAD; Complete Time: 12:26 EDMS 05/23 12:37 Order name: Urine Drug Screen [facility] 05/23 12:37 Order name: UDS 05/23 12:56 Order name: Urine Drug Screen; Complete Time: 14:29 EDMS 05/23 13:52 Order name: Urine Dipstick--Ancillary (enter results) 05/23 14:47 Order name: Urine Dipstick-Ancillary; Complete Time: 16:49 EDMS 05/23 10:25 Order name: EKG; Complete Time: 10:26 05/23 10:25 Order name: Cardiac monitoring; Complete Time: 10:39 05/23 10:25 Order name: EKG - Nurse/Tech; Complete Time: 10:40 05/23 10:25 Order name: IV Saline Lock; Complete Time: 10:40 05/23 10:25 Order name: Labs collected and sent; Complete Time: 10:40 05/23 10:25 Order name: O2 Per Protocol; Complete Time: 10:40 05/23 10:25 Order name: O2 Sat Monitoring; Complete Time: 10:40 05/23 12:35 Order name: EKG; Complete Time: 12:36 cp 05/23 12:35 Order name: EKG - Nurse/Tech; Complete Time: 13:09 cp Administered Medications: 10:46 Drug: Nitroglycerin 0.4 mg Route: Sublingual; rb1 10:46 Drug: Aspirin Chewable Tablet 324 mg Route: PO; rb1 10:46 Drug: Zofran 4 mg Route: IVP; Site: right antecubital; rb1 11:10 Drug: Nitroglycerin 0.4 mg Route: Sublingual; rb1 11:45 Drug: TORadol 30 mg Route: IVP; Site: right antecubital; rb1 11:45 Drug: Nitroglycerin 0.4 mg Route: Sublingual; rb1 13:03 Drug: morphine 4 mg Route: IVP; Site: right antecubital; rb1 13:29 CANCELLED (Physician Discretion): Ativan 0.5 mg IVP once cp 14:16 Drug: morphine 4 mg Route: IVP; Site: right antecubital; em 17:10 Drug: morphine 4 mg Route: IVP; Site: right antecubital; rb1 Disposition: 05/23/18 15:01 Transfer ordered to [facility]. Diagnosis are Chest pain, unspecified, Angina pectoris, unspecified. - Reason for transfer: Higher level of care. - Accepting physician is DR Monge. - Condition is Stable. - Problem is new. - Symptoms have improved. Addendum: 05/25/2018 06:59 Co-signature as Attending Physician, Jose Nolasco MD I agree with the assessment and c lemos plan of care. Signatures: Dispatcher [employer] Alfonso Anderson RN RN sg Anderson, Corey, MD MD cha Munoz, Edgar, COMPUTER ENGINEER COMPUTER ENGINEER em Jose Wilson PA PA cp Pura Whitney, RN RN rb1 Luis Eduardo Downing, RN RN jb4 Corrections: (The following items were deleted from the chart) 05/23 13:29 13:13 Ativan 0.5 mg IVP once ordered. cp cp 19:21 15:01 05/23/2018 15:01 Transfer ordered to [facility]. Diagnosis is Chest pain, jb4 unspecified; Angina pectoris, unspecified. Reason for transfer: Higher level of care. Accepting physician is DR Ahmad. Condition is Stable. Problem is new. Symptoms have improved. cp
--- NOTE | 2018-05-23 15:02 | ER ---
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 Transition of care: patient was not received from another setting of care. Onset of symptoms was May 23, 2018. Risk Assessment: Do you want to hurt yourself or someone else? Patient reports no desire to harm self or others. Initial Sepsis Screen: Does the patient meet any 2 criteria? No. Patient's initial sepsis screen is negative. Does the patient have a suspected source of infection? No. Patient's initial sepsis screen is negative. Care prior to arrival: None. 10:07 Method Of Arrival: Ambulatory sg 10:07 Acuity: THANH 3 sg Historical: - Allergies: 10:10 Beta Blockers (sensitive/hypotension); sg 10:10 Demerol; sg 10:10 Flomax; sg 10:10 Neurontin; sg 10:10 Skelaxin; sg 10:10 Spironolactone; sg 10:10 Stadol; sg 10:10 tramadol; sg - Home Meds: 10:15 allopurinol 300 mg Oral tab 1 tab once daily [Active]; amlodipine 5 mg tab 1 tab once rb1 daily [Active]; atorvastatin 40 mg Oral tab 1 tab once daily [Active]; clonazepam 1 mg Oral TbDL 2 times per day [Active]; docusate sodium 100 mg Oral tab 2 times per day [Active]; furosemide 80 mg Oral tab 2 times per day [Active]; Inspra 50 mg Oral tab 1 tab 2 times per day [Active]; Lovenox 120 mg/0.8 mL Sub-Q syrg once daily [Active]; metolazone 2.5 mg Oral tab as needed [Active]; metoprolol succinate 6.25mg Oral Tb24 as needed [Active]; Nitrostat SL as needed [Active]; pantoprazole 40 mg Oral TbEC 1 tab once daily [Active]; Plavix 75 mg Oral tab 1 tab once daily [Active]; Potassium Chloride 60MEQ Oral 3 times per day [Active]; Ranexa 1,000 mg Oral TM12 [Active]; Robaxin Oral [Active]; warfarin 10 mg on MWF and 7.5 mg on T,Th,Sat, Sun Oral tab 1 tab once daily [Active]; Trulicity subcutaneous subcutaneous once wkly [Active]; metformin 500 mg Oral tab 1 tab 3 times a day [Active]; Folic Acid Oral [Active]; Magnesium Oxide Oral [Active]; - PMHx: 10:10 AAA; ADD/ADHD; Anemia; Anxiety; Atrial Fib; CHF; GERD; High Cholesterol; Hypertension; sg Kidney stones; Myocardial infarction; Pulmonary Embolism; R BUNDLE BRANCH BLOCK; Sleep Apnea; - PSHx: 10:10 Hernia repair; renal surgery; Heart stents; internal holter monitor; sg - Immunization history:: Adult Immunizations up to date. - Social history:: Smoking status: . - Ebola Screening: : Patient negative for fever greater than or equal to 101.5 degrees Fahrenheit, and additional compatible Ebola Virus Disease symptoms Patient denies exposure to infectious person Patient denies travel to an Ebola-affected area in the 21 days before illness onset No symptoms or risks identified at this time. Screenin:10 Abuse screen: Denies threats or abuse. Nutritional screening: No deficits noted. rb1 Tuberculosis screening: No symptoms or risk factors identified. Fall Risk None identified. Assessment: 10:10 General: Appears uncomfortable, obese, Behavior is cooperative, restless. Pain: rb1 Complains of pain in anterior aspect of right upper chest, and mid-sternal area Pain radiates to anterior aspect of left upper chest Pain currently is 10 out of 10 on a pain scale. Pain began 30 min ago. Neuro: Level of Consciousness is awake, alert, obeys commands, Oriented to person, place, time, situation. Cardiovascular: Capillary refill < 3 seconds is brisk in bilateral fingers. Respiratory: Reports pain with respiration Airway is patent Respiratory effort is labored, Respiratory pattern is regular, symmetrical. GI: Reports nausea. : No signs and/or symptoms were reported regarding the genitourinary system. Derm: Skin is pink, warm \T\ dry. 10:57 Reassessment: Pt. reports that he is feeling much better after the first dose of rb1 Nitroglycerin. 11:46 Reassessment: Patient appears in no apparent distress at this time. Patient and/or rb1 family updated on plan of care and expected duration. Pain level reassessed. Patient is alert, oriented x 3, equal unlabored respirations, skin warm/dry/pink. 12:37 Reassessment: Patient appears in no apparent distress at this time. No changes from rb1 previously documented assessment. Gave the pt. some water to drink. 13:03 Reassessment: Patient appears in no apparent distress at this time. Patient and/or rb1 family updated on plan of care and expected duration. Pain level reassessed. Patient is alert, oriented x 3, equal unlabored respirations, skin warm/dry/pink. pt. requested Zofran; provider notified. 14:00 Reassessment: Patient appears in no apparent distress at this time. No changes from rb1 previously documented assessment. at bedside. 15:00 Reassessment: Patient appears in no apparent distress at this time. Patient and/or rb1 family updated on plan of care and expected duration. Pain level reassessed. Patient is alert, oriented x 3, equal unlabored respirations, skin warm/dry/pink. 16:00 Reassessment: Patient appears in no apparent distress at this time. No changes from rb1 previously documented assessment. Pt. is watching TV. 17:00 Reassessment: Patient appears in no apparent distress at this time. Patient and/or rb1 family updated on plan of care and expected duration. Pain level reassessed. Patient is alert, oriented x 3, equal unlabored respirations, skin warm/dry/pink. 17:28 Reassessment: Attempted to call [facility] to give report but was left on hold. rb1 17:40 Reassessment: Gave report to NAVJOT Mlils at [facility]. Information from the SBAR was given. All [facility] questions asked and answered. 18:00 Reassessment: Patient appears in no apparent distress at this time. Patient and/or rb1 family updated on plan of care and expected duration. Pain level reassessed. Patient is alert, oriented x 3, equal unlabored respirations, skin warm/dry/pink. 18:25 Reassessment: Called [facility] to give report to a different nurse because the pt. was going rb1 to a different room. I was unable to give report at this time because the room is in the process of being cleaned. I was asked to call back in twenty minutes. 19:15 Reassessment: Gave report to [facility]. All questions asked and answered. rb1 19:35 Reassessment: Gave report to NAVJOT Orozco at [facility] due to a room change. Information from rb1 the SBAR was given. All questions asked and answered. Vital Signs: 10:08 BP 122 / 85; Pulse 91 MON; Resp 22 S; Temp 97.8(TE); Pulse Ox 100% on R/A; Pain 10/10; sg 11:00 BP 102 / 58; Pulse 76; Resp 14; Pulse Ox 95% on R/A; rb1 12:00 BP 107 / 55; Pulse 88; Resp 13; Pulse Ox 95% on R/A; Pain 7/10; rb1 13:00 BP 101 / 69; Pulse 83; Resp 14; Pulse Ox 98% on R/A; rb1 14:00 BP 113 / 69; Pulse 80; Resp 15; Pulse Ox 94% on R/A; rb1 14:10 BP 124 / 69; Pulse 79; Resp 15; Pulse Ox 99% on R/A; Pain 9/10; em 15:00 BP 110 / 62; Pulse 81; Resp 17; Pulse Ox 95% on R/A; rb1 16:00 BP 111 / 63; Pulse 81; Resp 12; Pulse Ox 95% on R/A; rb1 17:00 BP 116 / 58; Pulse 81; Resp 15; Pulse Ox 96% on R/A; Pain 8/10; rb1 18:00 BP 107 / 59; Pulse 79; Resp 13; Pulse Ox 96% on R/A; rb1 ED Course: 10:05 Patient arrived in ED. sb2 10:05 None, None is Private Physician. sb2 10:08 Triage completed. sg 10:09 Pura Whitney, RN is Primary Nurse. rb1 10:09 Arm band placed on. sg 10:10 Patient has correct armband on for positive identification. Placed in gown. Bed in low rb1 position. Call light in reach. Side rails up X 1. traffic monitor specialist on. Pulse ox on. NIBP on. Warm blanket given. 10:10 Patient maintains SpO2 saturation greater than 95% on room air. rb1 10:12 EKG done, by ED staff, reviewed by Jose Nolasco MD. 3 10:20 Jose Wilson PA is PHCP. cp 10:20 Jose Nolasco MD is Attending Physician. cp 10:37 Initial lab(s) drawn, by mo, sent to lab. Inserted saline lock: 20 gauge in right 3 antecubital area, using aseptic technique. Blood collected. 13:09 EKG done, by ED staff, reviewed by Jose MÁRQUEZ. 3 19:21 No provider procedures requiring assistance completed. Patient transferred, IV remains rb1 in place. Administered Medications: 10:46 Drug: Nitroglycerin 0.4 mg Route: Sublingual; rb1 10:46 Drug: Aspirin Chewable Tablet 324 mg Route: PO; rb1 10:46 Drug: Zofran 4 mg Route: IVP; Site: right antecubital; rb1 11:10 Drug: Nitroglycerin 0.4 mg Route: Sublingual; rb1 11:45 Drug: TORadol 30 mg Route: IVP; Site: right antecubital; rb1 11:45 Drug: Nitroglycerin 0.4 mg Route: Sublingual; rb1 13:03 Drug: morphine 4 mg Route: IVP; Site: right antecubital; rb1 13:29 CANCELLED (Physician Discretion): Ativan 0.5 mg IVP once cp 14:16 Drug: morphine 4 mg Route: IVP; Site: right antecubital; em 17:10 Drug: morphine 4 mg Route: IVP; Site: right antecubital; rb1 Outcome: 15:01 ER care complete, transfer ordered by MD. cp 19:21 Patient left the ED. [facility] 19:21 Transferred by ground EMS to [facility], Transfer form rb1 completed. 19:21 Condition: stable 19:21 Instructed on the need for transfer. Signatures: Alfonso Hamilton RN RN Zaid Velasquez, BOARD CERTIFIED BEHAVIORAL ANALYST BOARD CERTIFIED BEHAVIORAL ANALYST em Jose Wilson PA PA cp Pura Whitney, RN RN rb1 Luis Eduardo Downing RN RN jb Eladia Daniels 3 Kaelyn Friedman2
[2018-05-23 19:55] VITALS: TEMP 97.8
[2018-05-23 20:11] VITALS: O2SAT 96
[2018-05-23 20:13] VITALS: BP 107/59
--- NOTE | 2018-05-24 06:17 | EKG ---
Test Date: 2018-05-23 Test Time: 13:03:52 Nc Machinist: CHRISTY MEASUREMENT RESULTS: Intervals: Rate: 81 GA: 174 QRSD: 136 QT: 422 QTc: 490 [place]: P: 32 GA: 174 QRS: -1 T: 2 INTERPRETIVE STATEMENTS: Normal sinus rhythm Right bundle branch block Inferior infarct, age undetermined Abnormal ECG Compared to ECG 03/25/2018 15:24:29 No significant changes Electronically Signed On 05-24-18 06:16:42 [employer] WIPER REPAIRER by Guilherme Sharma
--- NOTE | 2018-05-24 06:18 | EKG ---
Test Date: 2018-05-23 Test Time: 10:10:42 Validation Analyst: CHRISTY MEASUREMENT RESULTS: Intervals: Rate: 83 WV: 170 QRSD: 126 QT: 420 QTc: 493 [place]: P: 15 WV: 170 QRS: 4 T: 2 INTERPRETIVE STATEMENTS: Normal sinus rhythm Right bundle branch block Inferior infarct, age undetermined Abnormal ECG Compared to ECG 03/25/2018 15:24:29 No significant changes Electronically Signed On 05-24-18 06:17:04 INSURANCE VERIFICATION CLERK by Guilherme Sharma
== END 2018-05-23 19:21 | disposition short-term general hospital (02) ==
LOC: ER 09:58
DX: I20.9 Angina pectoris, unspecified (principal); I45.10 Unspecified right bundle-branch block; R94.31 Abnormal electrocardiogram [ECG] [EKG]; I11.0 Hypertensive heart disease with heart failure; I50.9 Heart failure, unspecified; I48.91 Unspecified atrial fibrillation; I71.4 Abdominal aortic aneurysm, without rupture; I25.2 Old myocardial infarction; D64.9 Anemia, unspecified; E78.00 Pure hypercholesterolemia, unspecified; K21.9 Gastro-esophageal reflux disease without esophagitis; F41.9 Anxiety disorder, unspecified; F90.9 Attention-deficit hyperactivity disorder, unspecified type; G47.30 Sleep apnea, unspecified; Z79.02 Long term (current) use of antithrombotics/antiplatelets; Z79.01 Long term (current) use of anticoagulants; Z79.84 Long term (current) use of oral hypoglycemic drugs; Z79.899 Other long term (current) drug therapy; Z86.711 Personal history of pulmonary embolism; Z95.5 Presence of coronary angioplasty implant and graft
CPT/HCPCS: 36415; 71045; 80048; 80076; 80307; 81003; 83735; 83880; 84484; 85025; 85610; 93005; 96374; 96375; 99285; J2405

== ENCOUNTER 2018-08-10 14:32 | Emergency (ER) | payer OTHER ==
--- OUTSIDE RECORDS SUMMARY | 2018-08-10 14:35 | XMS REPORT | Clinical Summary ---
:1970 Author Organization [facility] Address [address] [place] [address] Care Team Providers Name Role Phone Asked, [...] Comments) 07/27/2017 tachycardia Tramadol Palpitations Low 07/27/2017 Medications Medication Sig Dispensed Refills Start Date End Date Status allopurinol Take 300 mg by 0 Active (ZYLOPRIM) 300 MG mouth daily. tabletIndications: Gout Prevention atorvastatin Take 40 mg by 0 Active (LIPITOR) 40 MG mouth nightly. tabletIndications: Hyperlipidemia clonAZEPAM (KlonoPIN) Take by mouth. 0 Active 1 MG Take 1/2 tablet tabletIndications: in morning, 1/2 anxiety tablet at noon, and 1 tablet in the evening docusate sodium Take 100 mg by 0 Active (COLACE) 100 MG mouth daily. capsuleIndications: Constipation furosemide (LASIX) 80 Take 80 mg by 0 Active mg tabletIndications: mouth 2 (two) Edema times a day. clopidogrel (PLAVIX) Take 75 mg by 0 Active 75 mg mouth daily. tabletIndications: Thrombosis Prevention after PCI metOLazone Take 2.5 mg by 0 Active (ZAROXOLYN) 2.5 MG mouth daily as tabletIndications: needed (for Hypertension weight gain greater than 5 poounds). metoprolol tartrate Take 12.5 mg by 0 Active (LOPRESSOR) 25 mg mouth daily as tabletIndications: needed (if Acute Coronary pulse greater Syndrome than 110). [address] 1 spray 0 Active (NITROLINGUAL) 400 under the mcg/spray tongue every 5 sprayIndications: (five) minutes Angina as needed for chest pain. insulin ASPART Inject 10 Units 0 Active (NovoLOG) 100 unit/mL under the skin insulin 3 (three) times penIndications: Type a day before 2 Diabetes Mellitus meals. pantoprazole Take 40 mg by 0 Active (PROTONIX) 40 MG EC mouth daily. tabletIndications: Gastroesophageal Reflux insulin GLARGINE Inject 20 Units 0 Active (LANTUS SOLOSTAR) 100 under the skin unit/mL injection nightly. (pen)Indications: Type 2 Diabetes Mellitus potassium chloride Take 20 mEq by 0 Active (K-DUR,KLOR-CON) 10 mouth 3 (three) MEQ CR times a day. tabletIndications: Three tabs QID Hypokalemia Prevention methocarbamol Take 750 mg by 0 Active (ROBAXIN) 750 MG mouth 2 (two) tabletIndications: times a day. Muscle Spasm ranolazine (RANEXA) Take 1,000 mg 0 Active 1,000 mg 12 hr by mouth 2 tabletIndications: (two) times a Chronic Stable Angina day. Pectoris warfarin (COUMADIN) Take 10 mg by 0 Active 10 MG mouth. On tabletIndications: Friday, Pulmonary , Thromboembolism Friday, Friday warfarin (COUMADIN) Take 7.5 mg by 0 Active 7.5 MG mouth. On tabletIndications: Friday, Pulmonary Friday, Thromboembolism Friday cyanocobalamin 1,000 Inject 1,000 0 Active mcg/mL mcg into the injectionIndications: shoulder, Prevention of Vitamin thigh, or B12 Deficiency buttocks once a week. For 3 months, and then will reassess B12 levels desvenlafaxine Take 100 mg by 0 Active (PRISTIQ) 100 MG 24 mouth daily. hr tabletIndications: Major Depressive Disorder ferrous sulfate 325 Take 325 mg by 0 Active (65 FE) MG mouth 3 (three) tabletIndications: times a day Iron Deficiency with meals. Anemia AMILoride (MIDAMOR) 5 Take 5 mg by 0 Active MG tabletIndications: mouth 2 (two) Hypertension times a day. folic acid (FOLVITE) Take 1 mg by 0 Active 1 MG mouth daily. tabletIndications: Folate Deficiency aspirin (ECOTRIN) 81 Take 81 mg by 0 01/26/20 Discontinued MG enteric coated mouth daily. 18 tablet HYDROcodone-acetamino Take 1 tablet 0 01/30/20 Discontinued phen (NORCO) 7.5-325 by mouth 3 18 mg per tablet (three) times a day. eplerenone (INSPRA) Take 50 mg by 0 01/25/20 Discontinued 25 MG tablet mouth 2 (two) 18 times a day. nitroglycerin Place 0.4 mg 0 01/30/20 Discontinued (NITROSTAT) 0.4 MG SL under the 18 tablet tongue every 5 (five) minutes as needed for chest pain. PARoxetine (PAXIL) 40 Take 1 tablet 7 tablet 0 07/31/2017 08/31/19 MG tabletIndications: (40 mg total) 18 Anxiety with by mouth every Depression morning for 30 days Indications: Anxiety with Depression. desvenlafaxine Take 1 tablet 30 tablet 0 07/31/2017 08/31/19 (PRISTIQ) 50 MG 24 hr (50 mg total) 18 tabletIndications: by mouth every Major Depressive morning for 30 Disorder days Indications: Major Depressive Disorder. enoxaparin (LOVENOX) Inject 120 mg 0 01/30/20 Discontinued 120 mg/0.8 mL under the skin 18 syringeIndications: every 12 Acute Pulmonary (twelve) hours. Thromboembolism PARoxetine (PAXIL) 30 Take 30 mg by 0 01/30/20 Discontinued MG tablet mouth every 18 morning. HYDROcodone-acetamino Take 1 tablet 21 tablet 0 01/28/2018 02/05/20 phen (NORCO) 7.5-325 by mouth 3 18 mg per (three) times a tabletIndications: day as needed unmanageable pain for moderate pain for up to 21 doses. Max Daily Amount: 3 tablets PARoxetine (PAXIL) 20 Take 1 tablet 30 tablet 0 01/29/2018 02/29/20 MG tabletIndications: (20 mg total) 18 Anxiety with by mouth daily Depression for 30 days. Active Problems Problem Noted Date Major depressive disorder, recurrent episode, severe 01/24/2018 MDD (major depressive disorder), recurrent severe, without psychosis 2017 Severe episode of recurrent major depressive disorder, without psychotic 07/27 features Chronic pain syndrome 07/27/2017 Encounters Date Type Specialty Care Team Description 02/17/2018 Telephone Home Health Services George Chairez, PhD 02/11/2018 Clinical Support Home Health Services 01/23/2018 - Hospital Encounter Psychiatry Melanie Epperson, 01/29/2018 Luis Eduardo Jules MD 01/23/2018 Intake Access N/A after 08/09/2017 Social History Tobacco Use Types Packs/Day Years Used Date Never Smoker Tobacco Cessation: Counseling Given: No Sex Assigned at Date Recorded Not on file Job Start Date Occupation Industry Not on file Not on file Not on file Travel History Travel Start Travel End No recent travel history available. Last Filed Vital Signs Vital Sign Reading Time Taken Blood Pressure 128/85 02/11/2018 8:56 AM CDT Pulse 86 02/11/2018 8:56 AM CDT Temperature 36.6 C (97.9 F) 02/11/2018 8:56 AM CDT Respiratory Rate 17 02/11/2018 8:56 AM CDT Oxygen Saturation 94% 01/29/2018 6:09 AM CDT Inhaled Oxygen Concentration - - Weight 129 kg (283 lb 12.8 oz) 01/28/2018 6:40 AM CDT Height 177.8 cm (5' 10") 01/23/2018 9:25 PM CDT Body Mass Index 40.72 01/28/2018 6:40 AM CDT Plan of Treatment Health Maintenance Due Date Last Done Comments INFLUENZA VACCINE 01/21/2018 Procedures Procedure Name Priority Date/Time Associated Comments Diagnosis POC GLUCOSE Routine 01/29/2018 6:14 Results for this AM CDT procedure are in the results section. POC GLUCOSE Routine 01/28/2018 8:21 Results for this PM CDT procedure are in the results section. POC GLUCOSE Routine 01/28/2018 5:31 Results for this PM CDT procedure are in the results section. POC GLUCOSE Routine 01/28/2018 12:07 Results for this PM CDT procedure are in the results section. PROTHROMBIN TIME WITH Routine 01/28/2018 11:17 Results for this INR AM CDT procedure are in the results section. POC GLUCOSE Routine 01/28/2018 6:22 Results for this AM CDT procedure are in the results section. POC GLUCOSE Routine 01/27/2018 8:47 Results for this PM CDT procedure are in the results section. POC GLUCOSE Routine 01/27/2018 4:52 Results for this PM CDT procedure are in the results section. POC GLUCOSE Routine 01/27/2018 11:59 Results for this AM CDT procedure are in the results section. POC GLUCOSE Routine 01/27/2018 6:35 Results for this AM CDT procedure are in the results section. PROTHROMBIN TIME WITH Routine 01/27/2018 6:00 Results for this INR AM CDT procedure are in the results section. POC GLUCOSE Routine 01/26/2018 8:57 Results for this PM CDT procedure are in the results section. POC GLUCOSE Routine 01/26/2018 5:42 Results for this PM CDT procedure are in the results section. POC GLUCOSE Routine 01/26/2018 12:17 Results for this PM CDT procedure are in the results section. POC GLUCOSE Routine 01/26/2018 6:04 Results for this AM CDT procedure are in the results section. PROTHROMBIN TIME WITH Routine 01/26/2018 6:00 Results for this INR AM CDT procedure are in the results section. POC GLUCOSE Routine 01/25/2018 8:41 Results for this PM CDT procedure are in the results section. POC GLUCOSE Routine 01/25/2018 5:35 Results for this PM CDT procedure are in the results section. POC GLUCOSE Routine 01/25/2018 12:13 Results for this PM CDT procedure are in the results section. POC GLUCOSE Routine 01/25/2018 6:42 Results for this AM CDT procedure are in the results section. ZZESTIMATED GFR Routine 01/25/2018 5:50 Results for this AM CDT procedure are in the results section. HC COMPLETE BLD COUNT Routine 01/25/2018 5:50 Results for this W/AUTO DIFF AM CDT procedure are in the results section. BASIC METABOLIC PANEL Routine 01/25/2018 5:50 Results for this AM CDT procedure are in the results section. PROTHROMBIN TIME WITH Routine 01/25/2018 5:50 Results for this INR AM CDT procedure are in the results section. POC GLUCOSE Routine 01/24/2018 8:53 Results for this PM CDT procedure are in the results section. ECG 12-LEAD Routine 01/24/2018 7:11 Results for this PM CDT procedure are in the results section. POC GLUCOSE Routine 01/24/2018 5:51 Results for this PM CDT procedure are in the results section. POC GLUCOSE Routine 01/24/2018 11:56 Results for this AM CDT procedure are in the results section. PROTHROMBIN TIME WITH STAT 01/24/2018 7:35 Results for this INR AM CDT procedure are in the results section. POC GLUCOSE Routine 01/24/2018 6:49 Results for this AM CDT procedure are in the results section. after 08/09/2017 Results POC glucose (01/29/2018 6:14 AM CDT)Only the most recent of21 resultswithin the time period is included. POC glucose 132 (H) 65 - 99 mg/dL [facility] DEPARTMENT OF PATHOLOGY AND Comment: [employer] [facility]IC[facility] Meter ID: [id number] Court Worker: Willie Márquez Performing Organization Address City/State/Zipcode Phone Number [facility] DEPARTMENT OF PATHOLOGY AND [address] [place] [place] [id number] [employer] [facility] Prothrombin time with INR (01/28/2018 11:17 AM CDT)Only the most recent of5 resultswithin the time period is included. Prothrombin time 23.2 (H) 12.0 - 15.0 sec [facility] DEPARTMENT OF PATHOLOGY AND GENOMIC MEDICINE INR 2.0 [facility] DEPARTMENT OF Comment: PATHOLOGY AND GENOMIC The International Normalized Ratio (INR) is a therapeutic MEDICINE monitoring tool for patients who are stable on oral anticoagulant therapy. An INR of 2.0-3.0 is suggested for deep vein thrombosis/pulmonary embolism. Specimen Blood Performing Organization Address City/[facility]/Zipcode Phone Number [facility] DEPARTMENT OF PATHOLOGY AND [address] [place] [phone] [employer] [facility] Estimated GFR (01/25/2018 5:50 AM CDT) GFR Non Af Amer 90 mL/min/1.73 m2 [facility] DEPARTMENT OF PATHOLOGY AND GENOMIC MEDICINE GFR Af Amer >90 mL/min/1.73 m2 [facility] DEPARTMENT OF Comment: PATHOLOGY AND GENOMIC Chronic kidney disease: <60 mL/min/1.73m2 MEDICINE Kidney failure: <15 mL/min/1.73m2 The estimated GFR is calculated from the IDMS-traceable Modification of Diet in Renal Disease Equation. The accuracy of the calculation is poor when the creatinine is normal. Calculated values >90 mL/min/1.73m2 are not reported. This equation has not been validated in children (<18 years), women, the elderly (>70 years), or ethnic groups other than Caucasians and Americans. Specimen Plasma specimen Performing Organization Address City/State/Zipcode Phone Number [facility] DEPARTMENT OF PATHOLOGY AND [address] [place] [address] [employer] [facility] CBC with platelet and differential (01/25/2018 5:50 AM CDT) WBC 13.93 (H) 4.50 - 11.00 k/uL [facility] DEPARTMENT OF PATHOLOGY AND GENOMIC MEDICINE RBC 4.88 4.40 - 6.00 m/uL [facility] DEPARTMENT OF PATHOLOGY AND GENOMIC MEDICINE HGB 12.7 (L) 14.0 - 18.0 g/dL [facility] DEPARTMENT OF PATHOLOGY AND GENOMIC MEDICINE HCT 39.4 (L) 41.0 - 51.0 % [facility] DEPARTMENT OF PATHOLOGY AND GENOMIC MEDICINE MCV 80.7 (L) 82.0 - 100.0 fL [facility] DEPARTMENT OF PATHOLOGY AND GENOMIC MEDICINE MCH 26.0 (L) 27.0 - 34.0 pg [facility] DEPARTMENT OF PATHOLOGY AND GENOMIC MEDICINE MCHC 32.2 31.0 - 37.0 g/dL [facility] DEPARTMENT OF PATHOLOGY AND GENOMIC MEDICINE RDW - SD 47.6 37.0 - 55.0 fL [facility] DEPARTMENT OF PATHOLOGY AND GENOMIC MEDICINE MPV 9.6 8.8 - 13.2 fL [facility] DEPARTMENT OF PATHOLOGY AND GENOMIC MEDICINE Platelet count 281 150 - 400 k/uL [facility] DEPARTMENT OF PATHOLOGY AND GENOMIC MEDICINE Nucleated RBC 0.00 /100 WBC [facility] DEPARTMENT OF PATHOLOGY AND GENOMIC MEDICINE Neutrophils 69.6 (H) 39.0 - 69.0 % [facility] DEPARTMENT OF PATHOLOGY AND GENOMIC MEDICINE Lymphocytes 20.5 (L) 25.0 - 45.0 % [facility] DEPARTMENT OF PATHOLOGY AND GENOMIC MEDICINE Monocytes 7.8 0.0 - 10.0 % [facility] DEPARTMENT OF PATHOLOGY AND GENOMIC MEDICINE Eosinophils 0.9 0.0 - 5.0 % [facility] DEPARTMENT OF PATHOLOGY AND GENOMIC MEDICINE Basophils 0.4 0.0 - 1.0 % [facility] DEPARTMENT OF PATHOLOGY AND GENOMIC MEDICINE Immature granulocytes 0.8Comment: 0.0 - 1.0 % [facility] DEPARTMENT OF "Immature PATHOLOGY AND GENOMIC granulocytes" MEDICINE (promyelocytes, myelocytes, metamyelocytes) Specimen Blood Performing Organization Address [facility] Phone Number [facility] DEPARTMENT OF PATHOLOGY AND [address] [place] [address] Basic metabolic panel (01/25/2018 5:50 AM CDT) Sodium 137 135 - 148 mEq/L [facility] DEPARTMENT OF PATHOLOGY AND GENOMIC MEDICINE Potassium 3.9 3.5 - 5.0 mEq/L [facility] DEPARTMENT OF PATHOLOGY AND GENOMIC MEDICINE Chloride 98 98 - 112 mEq/L [facility] DEPARTMENT OF PATHOLOGY AND GENOMIC MEDICINE CO2 26 24 - 31 mEq/L [facility] DEPARTMENT OF PATHOLOGY AND GENOMIC MEDICINE Anion gap 13@ANIO 7 - 15 mEq/L [facility] DEPARTMENT OF PATHOLOGY AND GENOMIC MEDICINE BUN 16 6 - 20 mg/dL [facility] DEPARTMENT OF PATHOLOGY AND GENOMIC MEDICINE Creatinine 0.9 0.7 - 1.2 mg/dL [facility] DEPARTMENT OF PATHOLOGY AND GENOMIC MEDICINE Glucose 154 (H) 65 - 99 mg/dL [facility] DEPARTMENT OF PATHOLOGY AND GENOMIC MEDICINE Calcium 9.7 8.3 - 10.2 mg/dL [facility] DEPARTMENT OF PATHOLOGY AND GENOMIC MEDICINE Specimen Plasma specimen Performing Organization Address [facility] Phone Number [facility] DEPARTMENT OF PATHOLOGY AND [address] [place], [place] [phone] [facility] ECG 12 lead (01/24/2018 7:11 PM CDT) Ventricular rate 94 [facility] MUSE Atrial rate 94 [facility] MUSE IL interval 162 [facility] MUSE QRSD interval 146 [facility] MUSE QT interval 414 [facility] MUSE QTC interval 517 [facility] MUSE P axis 1 33 [facility] MUSE QRS axis 1 -16 [facility] MUSE T wave axis 17 [facility] MUSE EKG impression Normal sinus rhythm-Right bundle branch block-Lateral infarct ( cited on or before 30-JUL-2017)-Inferior infarct (cited on or before 27-JUL-2017 )-Abnormal ECG-In automated comparison with ECG of 30-JUL-2017 09:06,-No significant change was [facility] MUSE found- Performing Organization Address City/State/Zipcode Phone Number [facility] MUSE [address] [place] [address] after 08/09/2017 Insurance Payer Benefit Plan / Group Subscriber ID Type Phone Address MISC MEDICAID REPLACEMENT MISC MEDICAID REPLACEMENT xxxxxxxxxxxx HMO ([place]) [place] [address] Advance Directives Patient has advance care planning documents, and code status on file. For more information, please contact:Rene [address] [place] [address] Code Status Date Activated Date Inactivated Comments Full Code 01/24/2018 5:07 PM 01/29/2018 3:21 PM Code Status decision reached by: Patient Full Code 07/27/2017 10:23 AM 07/31/2017 4:58 PM Code Status decision reached by: Patient Full Code 07/27/2017 5:07 AM 07/27/2017 10:23 AM Code Status decision reached by: Patient
--- OUTSIDE RECORDS SUMMARY | 2018-08-10 14:35 | XMS REPORT | Clinical Summary ---
:1970 Author Organization [facility] Address [address] [place] [address] Care Team Providers Name Role Phone Mark Burkett MD Primary Care Provider Allergies Active Allergy Reactions Severity Noted Date Comments Beta-Blockers 12/05/2015 Per patient "heart rate (Beta-Adrenergic Blocking drop, lethargic, weak" Agts) Tamsulosin 12/05/2015 "too over power" Butorphanol Tartrate 12/05/2015 "tachycardia" Tramadol 03/20/2016 Tachycardia Medications Medication Sig Dispensed Refills Start Date End Date Status pantoprazole (PROTONIX) Take 1 tablet (40 30 tablet 0 12/11/2015 Active 40 MG tablet mg total) by mouth daily. furosemide (LASIX) 20 Take 20 mg by 0 Active MG tablet mouth daily. potassium chloride SA Take 20 mEq by 0 Active (K-DUR,KLOR-CON) 20 MEQ mouth daily . tablet hydrOXYzine (ATARAX) 25 Take 25 mg by 0 Active MG tablet mouth every night as needed (Sleep). Active Problems Problem Noted Date Acute chest pain 01/19/2016 Chest pain, unspecified type 12/26/2015 Essential hypertension with goal blood pressure less than 130/80 12/19/2015 GREGORIO on CPAP 12/19/2015 Diastolic dysfunction, Grade 1 12/19/2015 Diabetes mellitus type 2 in obese 12/19/2015 STEMI (ST elevation myocardial infarction) 12/05/2015 Family History Medical History Relation Name [...] travel history available. Last Filed Vital Signs Not on file Plan of Treatment Health Maintenance Due Date Last Done Comments INFLUENZA VACCINE 03/23/2018 Implants Implanted Type Area Sorting Grapple Operator Device Shelf Model / Identifier Expiration Date Serial / Lot [employer] Implanted: Qty: 1 on 12/05/2015 Procedures Procedure Name Priority Date/Time Associated Diagnosis Comments VASCULAR DIAGRAM -SCAN 09/02/2017 2:52 PM CDT after 08/09/2017 Results VASCULAR DIAGRAM -SCAN (09/02/2017 2:52 PM CDT) Narrative Performed At after 08/09/2017 Advance Directives For more information, please contact:[address] [phone] Code Status Date Activated Date Inactivated Comments Full Code 01/19/2016 11:48 PM 01/20/2016 2:50 PM This code status was determined by: Patient Full Code 12/26/2015 10:38 AM 12/27/2015 5:41 PM This code status was determined by: Patient Full Code 12/16/2015 4:07 PM 12/18/2015 6:59 PM This code status was determined by: Patient Full Code 12/05/2015 10:38 AM 12/11/2015 7:33 PM This code status was determined by: Patient
--- OUTSIDE RECORDS SUMMARY | 2018-08-10 14:41 | XMS REPORT | Continuity of Care Document ---
:1970 Author Organization Interface Problems Problem Status Onset Classification Date Comments Source Date Reported Discharge Diagnosis: 05/20/2016 Chest pain [facility] CHEST PAIN Active [address] ACS, CHEST PAIN Active [facility] 016 [place] Discharge Diagnosis: 04/28/2016 Flank pain [facility] KIDNEY STONES Active [facility] 016 [place] Discharge Diagnosis: 03/08/2016 Acute chest pain [facility] Discharge Diagnosis: 03/05/2016 Renal calculus 016 [facility] KIDNEY STONE Active [address] PYELONEPHRITIS Active [address] 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 Congestive heart Resolved Problem 05/20/2016 2L fluid failure<sup>1</sup> restrictio [facility] n/24hrs Diabetes Resolved Problem 05/20/2016 [facility] Hypercholesteremia Resolved Problem 05/20/2016 [facility] Hypertension Resolved Problem 05/20/2016 [facility] Kidney stone Resolved Problem 05/20/2016 [facility] Heart Resolved Problem 05/20/2016 December 04, attack<sup>2</sup> 2016 [facility] Bundle branch block, Resolved Problem 05/20/2016 right [facility] Sleep apnea Resolved Problem 05/20/2016 [facility] TUBULO-INTERSTITIAL Active [facility] NEPHRITIS, NOT [facility] [place] CHEST PAIN, Active [facility] UNSPECIFIED [place] Medications Medication Details Route Status Patient Ordering Order Source Instructions Provider Date Aspirin 81 mg, 1 tab, Inactive Route: PO, Drug 2015 [facility] form: ECTAB, ONCE, Dosing Weight 128.636, kg, Priority: STAT, Start date: 05/17/16 17:16:00 [facility], Stop date: 05/17/16 17:16:00 CSTNotes: Do not crush or chew. (Same As: Ecotrin) Saline Flush 10 mL, Route: Inactive 0.9% IVP, Drug Form: 2015 [facility] INJ, Dosing Weight 128.636, kg, PRN, PRN Line Flush, Start date: 05/17/16 15:48:00 [facility], Duration: 30 day, Stop date: 06/16/16 15:47:00 CSTNotes: (Same as: BD Posiflush) Plavix 75 mg, 1 tab, No Longer Route: PO, Drug Active 2015 [facility] form: TAB, Daily, Dosing Weight 131.7, kg, Start date: 05/07/16 9:00:00 [facility], Duration: 30 day, Stop date: 06/05/16 9:00:00 CSTNotes: (Same As: Plavix) metoprolol 25 mg 25 mg=1 tab, PO, Active oral tablet, Daily, # 30 tab, 2015 [facility] extended release 0 Refill(s) Protonix 40 mg, 1 tab, Inactive Route: PO, Drug 2015 [facility] form: ECTAB, Before Dinner, Dosing Weight 131.7, kg, Start date: 05/06/16 16:30:00 [facility], Duration: 30 day, Stop date: 06/04/16 16:30:00 CSTNotes: Tablet should not be chewed or crushed. (Same as: Protonix) Lisinopril 2.5 mg, 0.5 tab, Inactive Route: PO, Drug 2015 [facility] form: TAB, Daily, Dosing Weight 131.7, kg, Start date: 05/06/16 9:00:00 [facility], Duration: 30 day, Stop date: 06/04/16 9:00:00 CSTNotes: (Same as: Prinivil, Zestril) Aspirin 325 MG 325 mg, 1 tab, Inactive Oral Tablet Route: PO, Drug 2015 [facility] form: TAB, Daily, Dosing Weight 127.273, kg, Start date: 05/06/16 9:00:00 [facility], Duration: 30 day, Stop date: 06/04/16 9:00:00 CSTNotes: Take with food. atorvastatin 40 40 mg=1 tab, PO, Active mg oral tablet Bedtime, # 90 [facility] tab, 1 Refill(s) Alprazolam 1 MG 1 mg, 2 tab, No Longer Oral Tablet Route: PO, Drug Active 2015 [facility] [Xanax] form: TAB, Q8H, Dosing Weight 131.7, kg, PRN Anxiety, Start date: 05/05/16 22:49:00 [facility], Duration: 30 day, Stop date: 06/04/16 22:48:00 CSTNotes: With food or milk (Same as: Xanax) Lipitor 80 mg, 2 tab, No Longer Route: PO, Drug Active 2015 [facility] form: TAB, Bedtime, Dosing Weight 127.273, kg, Start date: 05/05/16 21:00:00 [facility], Duration: 30 day, Stop date: 06/03/16 21:00:00 CSTNotes: (Same as: Lipitor) Clindamycin 300 mg, 2 cap, No Longer Route: PO, Drug Active 2015 [facility] form: CAP, ABXQ6H, Dosing Weight 127.273, kg, Start date: 05/05/16 21:00:00 [facility], Stop date: 06/04/16 15:00:00 CSTNotes: (Same As: Cleocin) Saline Flush 10 ml, Route: No Longer 0.9% IVP, Drug Form: Active 2015 [facility] INJ, Dosing Weight 127.273, kg, Q12H, Start date: 05/05/16 21:00:00 [facility]ER, Duration: 30 day, Stop date: 06/04/16 9:00:00 CSTNotes: preservative free. Insulin, Aspart, 1 unit, 0.01 mL, No Longer Human Route: SUB-Q, Active 2015 [facility] Drug form: SOLN, Bedtime, Dosing Weight 127.273, kg, PRN Blood Glucose Results, Start date: 05/05/16 20:27:00 BRICK LAYER, Duration: 30 day, Stop date: 06/04/16 20:26:00 CSTNotes: Roll in palms of hands gently; Do not shake vigorously. (Same as: NovoLOG) "single patient use only" WASTE: F/P - Black; E - Municipal Trash Bin Stable for 28 days at room temperature. Expires in days from Da te Glucagon 1 mg, Route: IM, No Longer Drug form: Active 2015 [facility] PDR/INJ, PRN, Dosing Weight 127.273, kg, PRN Blood Glucose Results, Start date: 05/05/16 20:27:00 BRICK LAYER, Duration: 30 day, Stop date: 06/04/16 20:26:00 [facility] Dextrose 50% 12.5 gm, 25 mL, No Longer Syringe Route: IVP, Drug Active 2015 [facility] Form: INJ, Dosing Weight 127.273, kg, PRN, PRN Blood Glucose Results, Start date: 05/05/16 20:27:00 BRICK LAYER, Duration: 30 day, Stop date: 06/04/16 20:26:00 [facility] Morphine 2 mg, 1 mL, No Longer Route: IVP, Drug Active 2015 [facility] form: INJ, Q2H, Dosing Weight 127.273, kg, PRN as needed for chest pain, Priority: STAT, Start date: 05/05/16 20:00:00 BRICK LAYER, Duration: 30 day, Stop date: 06/04/16 19:59:00 CSTNotes: (Same as:MORPhine Sulfate) Plavix 75 mg, 1 tab, Inactive Route: PO, Drug 2015 [facility] form: TAB, ONCE, Dosing Weight 127.273, kg, Priority: STAT, Start date: 05/05/16 19:58:00 BRICK LAYER, Stop date: 05/05/16 19:58:00 CSTNotes: (Same As: Plavix) Saline Flush 10 ml, Route: No Longer 0.9% IVP, Drug Form: Active 2015 [facility] INJ, Dosing Weight 127.273, kg, PRN, PRN Line Flush, Start date: 05/05/16 19:55:00 BRICK LAYER, Duration: 30 day, Stop date: 06/04/16 19:54:00 CSTNotes: (Same as: BD Posiflush) Albuterol 0.833 3 ml, Route: No Longer MG/ML / NEB, Drug Form: Active 2015 [facility] Ipratropium SOLN, Dosing [place] 0.167 Weight 127.273, MG/ML Inhalant kg, PRN, PRN Solution Respiratory Protocol, Start date: 05/05/16 19:55:00 BRICK LAYER, Duration: 30 day, Stop date: 06/04/16 19:54:00 CSTNotes: (Same as: Duoneb) Nystatin 100 1 appl, Route: No Longer UNT/MG Topical TOP, PRN, Drug Active 2015 [facility] Powder form: PWDR, PRN For Fungal Prophylaxis, Start date: 05/05/16 19:55:00 BRICK LAYER, Duration: 30 day, Stop date: 06/04/16 19:54:00 [...] Volume: 500 mL, Start date: 05/05/16 19:43:00 BRICK LAYER, Duration: 30 day, Stop date: 06/04/16 19:42:00 [facility] Heparin 60 Route: IVP, PRN, No Longer unit/kg Bolus 5,800 unit, 5.8 Active 2015 [facility] (Heparin Dosing mL, Drug form: Weight) INJ, PRN, Heparin Protocol, Start date: 05/05/16 19:43:00 BRICK [facility]AYER Stop date: 06/04/16 19:42:00 [facility] Heparin 30 Route: IVP, PRN, No Longer unit/kg Bolus 2,900 unit, 2.9 Active 2015 [facility] (Heparin Dosing mL, Drug form: Weight) INJ, PRN, Heparin Protocol, Start date: 05/05/16 19:43:00 BRICK LAYER Stop date: 06/04/16 19:42:00 BRICK [facility] Heparin - one 4,000 unit, 4 Inactive time bolus for mL, Route: IVP, 2016 [facility] Drug form: INJ, ONCE, Dosing Weight 127.273, kg, Priority: STAT, Start date: 05/05/16 19:43:00 BRICK LAYER, Stop date: 05/05/16 19:43:00 [facility] Morphine 4 mg, 1 mL, Inactive Route: IVP, Drug 2015 [facility] form: INJ, ONCE, Dosing Weight 127.273, kg, Priority: STAT, Start date: 05/05/16 19:25:00 BRICK LAYER, Stop date: 05/05/16 19:25:00 CSTNotes: (Same as:MORPhine Sulfate) Nitroglycerin 1 inch, Route: Inactive 0.02 MG/MG TOP, Dosing 2015 [facility] Topical Ointment Weight 127.273, kg, ONCE, STAT, Start date: 05/05/16 17:40:00 BRICK LAYER, Stop date: 05/05/16 17:40:00 [facility] Aspirin 81 MG 243 mg, Route: Inactive Chewable Tablet PO, Drug form: 2015 [facility] CHEWTAB, ONCE, Dosing Weight 127.273, kg, Priority: STAT, Start date: 05/05/16 17:17:00 BRICK LAYER, Stop date: 05/05/16 17:17:00 [facility] Morphine 4 mg, Route: Inactive IVP, ONCE, 2015 [facility] Dosing Weight 127.273, kg, Priority: STAT, Start date: 05/05/16 17:15:00 BRICK LAYER, Stop date: 05/05/16 17:15:00 [facility] Saline Flush 10 mL, Route: No Longer 0.9% IVP, Drug Form: Active 2015 [facility] INJ, Dosing Weight 128.182, kg, PRN, PRN Line Flush, Start date: 05/05/16 16:55:00 BR[facility], Duration: 30 day, Stop date: 06/04/16 16:54:00 CSTNotes: preservative free. Acetaminophen 1 - 2 tab, PO, No Longer 300 MG / Codeine Q4H, PRN Pain, X Active 2015 [facility] Phosphate 30 MG 2 day, # 20 tab, Oral Tablet 0 Refill(s) [Tylenol with Codeine #3] Morphine 4 mg, 1 mL, Inactive Route: IVP, Drug 2015 [facility] form: INJ, ONCE, Dosing Weight 128.182, kg, Priority: STAT, Start date: 04/25/16 19:51:00 CDT, Stop date: 04/25/16 19:51:00 CDTNotes: (Same as:MORPhine Sulfate) Zofran 4 mg, 2 mL, Inactive Route: IVP, Drug 2015 [facility] form: INJ, ONCE, Dosing Weight 128.182, kg, Priority: STAT, Start date: 04/25/16 18:23:00 CDT, Stop date: 04/25/16 18:23:00 CDTNotes: (Same as: Zofran) MEDICATION WASTE Product Size: 4 mg Product Wasted: ___ mg Morphine 4 mg, 1 mL, Inactive Route: IVP, Drug 2015 [facility] form: INJ, ONCE, Dosing Weight 128.182, kg, Priority: STAT, Start date: 04/25/16 18:23:00 CDT, Stop date: 04/25/16 18:23:00 CDTNotes: (Same as:MORPhine Sulfate) Saline Flush 10 mL, Route: Inactive 0.9% IVP, Drug Form: 2015 [facility] INJ, Dosing Weight 129.091, kg, PRN, PRN Line Flush, Start date: 04/25/16 18:07:00 CDT, Duration: 30 day, Stop date: 05/25/16 17:06:00 CSTNotes: (Same as: BD Posiflush) Acetaminophen 1 tab, PO, Q6H, Active 300 MG / Codeine PRN Pain, X 5 2015 [facility] Phosphate 30 MG day, # 20 tab, 0 Oral Tablet Refill(s) Morphine 4 mg, Route: Inactive IVP, ONCE, 2015 [facility] Dosing Weight 129.091, kg, Priority: STAT, Start date: 03/05/16 8:44:00 CDT, Stop date: 03/05/16 8:44:00 CDT Ondansetron 4 mg, Route: Inactive IVP, Drug form: 2015 [facility] INJ, ONCE, Dosing Weight 129.091, kg, Priority: STAT, Start date: 03/05/16 7:35:00 CDT, Stop date: 03/05/16 7:35:00 CDT Aspirin 324 mg, Route: Inactive PO, ONCE, Dosing 2015 [facility] Weight 129.091, kg, Priority: STAT, Start date: 03/05/16 7:22:00 CDT, Stop date: 03/05/16 7:22:00 CDT Morphine 2 mg, Route: Inactive IVP, ONCE, 2015 [facility] Dosing Weight 129.091, kg, Priority: STAT, Start date: 03/05/16 7:22:00 CDT, Stop date: 03/05/16 7:22:00 CDT Saline Flush 10 mL, Route: Inactive 0.9% IVP, Drug Form: 2015 [facility] INJ, Dosing Weight 129.091, kg, PRN, PRN Line Flush, Start date: 03/05/16 7:22:00 CDT, Duration: 30 day, Stop date: 04/04/16 7:21:00 CDTNotes: (Same as: BD Posiflush) Dilaudid 0.5 mg, 0.5 mL, Inactive Route: IVP, Drug 2015 [facility] form: INJ, ONCE, Dosing Weight 128.636, kg, Priority: STAT, Start date: 03/02/16 7:40:00 CDT, Stop date: 03/02/16 7:40:00 CDTNotes: Same as: Dilaudid Ketorolac 30 mg, 1 mL, Inactive Route: IVP, Drug 2015 [facility] form: INJ, ONCE, Dosing Weight 128.636, kg, Priority: STAT, Start date: 03/02/16 5:25:00 CDT, Stop date: 03/02/16 5:25:00 CDTNotes: (Same as:Toradol) IV bolus must be given >15 seconds. Give IM administration slowly and deeply into the muscle. Not for use > 4 days MEDICATION WASTE Product Size: 30 mg Product Wasted: ___ mg Morphine 4 mg, 1 mL, Inactive Route: IVP, Drug 2015 [facility] form: INJ, ONCE, Dosing Weight 128.636, kg, Priority: STAT, Start date: 03/02/16 5:25:00 CDT, Stop date: 03/02/16 5:25:00 CDTNotes: (Same as:MORPhine Sulfate) Ondansetron 4 mg, 2 mL, Inactive Route: IVP, Drug 2015 [facility] form: INJ, ONCE, Dosing Weight 128.636, kg, Priority: STAT, Start date: 03/02/16 5:25:00 CDT, Stop date: 03/02/16 5:25:00 CDTNotes: (Same as: Zofran) MEDICATION WASTE Product Size: 4 mg Product Wasted: ___ mg Saline Flush 10 mL, Route: Inactive 0.9% IVP, Drug Form: 2015 [facility] INJ, Dosing Weight 128.636, kg, PRN, PRN Line Flush, Start date: 03/02/16 5:25:00 CDT, Duration: 30 day, Stop date: 04/01/16 5:24:00 CDTNotes: (Same as: BD Posiflush) Sodium Chloride 1,000 mL, 2,000 Inactive 0.154 MEQ/ML ml/hr, Infuse 2015 [facility] Injectable Over: 30 Solution minutes, Route: IV, 1,000, Drug form: INJ, ONCE, Priority: STAT, Dosing Weight 128.636 kg, Start date: 03/02/16 5:25:00 CDT, Duration: 1 doses or times, Stop date: 03/02/16 5:25:00 CDT Acetaminophen 1 tab, PO, Q6H, Active 300 MG / Codeine PRN Pain, # 28 2015 [facility] Phosphate 30 MG tab, 0 Refill(s) Oral Tablet [Tylenol with Codeine #3] Protonix 40 mg, 1 tab, No Longer Route: PO, Drug Active 2015 [facility] form: ECTAB, Before Breakfast, Dosing Weight 129.545, kg, Start date: 02/18/16 7:30:00 CDT, Duration: 30 day, Stop date: 03/18/16 7:30:00 CDTNotes: Tablet should not be chewed or crushed. (Same as: Protonix) Lipitor 80 mg, 2 tab, No Longer Route: PO, Drug Active 2015 [facility] form: TAB, Bedtime, Dosing Weight 129.545, kg, Start date: 02/17/16 21:00:00 CDT, Duration: 30 day, Stop date: 03/17/16 21:00:00 CDTNotes: (Same as: Lipitor) Morphine 2 mg, 1 mL, No Longer Route: IVP, Drug Active 2015 [facility] form: INJ, Q4H, Dosing Weight 129.545, kg, PRN Pain Score 7-10, Start date: 02/17/16 11:54:00 CDT, Duration: 30 day, Stop date: 03/18/16 11:53:00 CDTNotes: (Same as:MORPhine Sulfate) Lovenox 40 mg, 0.4 mL, No Longer Route: SUB-Q, Active 2015 [facility] Drug form: INJ, [id number], Dosing Weight 129.545, kg, Start date: 02/17/16 10:00:00 CDT, Duration: 30 day, Stop date: 03/17/16 10:00:00 CDTNotes: (Same as: Lovenox) Lisinopril 2.5 mg, 0.5 tab, No Longer Route: PO, Drug Active 2015 [facility] form: TAB, Daily, Dosing Weight 129.545, kg, Start date: 02/17/16 9:55:00 CDT, Duration: 30 day, Stop date: 03/18/16 9:00:00 CDTNotes: (Same as: Prinivil, Zestril) Imdur 30 mg, 1 tab, No Longer Route: PO, Drug Active 2015 [facility] form: ERTAB, QAM, Dosing Weight 129.545, kg, Start date: 02/17/16 9:54:00 CDT, Duration: 30 day, Stop date: 03/18/16 9:00:00 CDTNotes: (Same as:Imdur) "Do Not Crush" Take on empty stomach/ full glass of water. Do not crush Plavix 75 mg, 1 tab, No Longer Route: PO, Drug Active 2015 [facility] form: TAB, Daily, Dosing Weight 129.545, kg, Start date: 02/17/16 9:54:00 CDT, Duration: 30 day, Stop date: 03/18/16 9:00:00 CDTNotes: (Same As: Plavix) Aspirin 81 MG 81 mg, 1 tab, No Longer Enteric Coated Route: PO, Drug Active 2015 [facility] Tablet form: ECTAB, Daily, Dosing Weight 129.545, kg, Start date: 02/17/16 9:54:00 CDT, Duration: 30 day, Stop date: 03/18/16 9:00:00 CDTNotes: Do not crush or chew. (Same As: Ecotrin) Zofran ODT 4 mg, 1 tab, No Longer Route: PO, Drug Active 2015 [facility] form: TABDIS, Q12H, Dosing Weight 129.545, kg, PRN Nausea, Start date: 02/17/16 9:25:00 CDT, Duration: 30 day, Stop date: 03/18/16 9:24:00 CDTNotes: (Same as: Zofran ODT) Nitroglycerin 0.4 mg, 1 tab, No Longer 0.4 MG Route: SL, Drug Active 2015 [facility] Sublingual form: TAB, Tablet Q5Min, Dosing [Nitrostat] Weight 129.545, kg, PRN Chest Pain, Start date: 02/17/16 9:25:00 CDT, Duration: 30 day, Stop date: 03/18/16 9:24:00 CDTNotes: (Same as:Nitroquick, Nitrostat) "Do Not Crush" Sublingual tablet Alprazolam 1 MG 1 mg, 1 tab, No Longer Oral Tablet Route: PO, Drug Active 2015 [facility] [Xanax] form: TAB, Q8H, Dosing Weight 129.545, kg, PRN Anxiety, Start date: 02/17/16 9:23:00 CDT, Duration: 30 day, Stop date: 03/18/16 9:22:00 CDTNotes: With food or milk (Same as: Xanax) pneumococcal 0.5 mL, Route: Inactive capsular IM, Drug Form: 2016 [facility] polysaccharide INJ, Daily, type 1 vaccine / [...] No Longer Disintegrating Q12H, PRN Active 2015 [facility] Tablet [Zofran] Nausea, 0 Refill(s) Aspirin 81 MG 81 mg=1 tab, PO, Active Enteric Coated Daily, # 90 tab, 2015 [facility] Tablet 3 Refill(s) Nitroglycerin 0.4 mg=1 tab, No Longer 0.4 MG SL, Q5Min, PRN Active 2015 [facility] Sublingual Chest Pain, # Tablet 100 tab, 0 [Nitrostat] Refill(s) pantoprazole 40 40 mg=1 tab, PO, Active MG Enteric Daily, # 30 tab, 2016 [facility] Coated Tablet 0 Refill(s) [Protonix] 24 HR Isosorbide 30 mg=1 tab, PO, Active Mononitrate 30 QAM, # 30 tab, 0 2015 [facility] MG Extended Refill(s) Release Tablet [Imdur] Hydroxyzine 25 mg=1 tab, PO, No Longer Hydrochloride 25 Bedtime, PRN Active 2016 [facility] MG Oral Tablet Sleep, # 30 tab, 0 Refill(s) Furosemide 20 MG 20 mg=1 tab, PO, Active Oral Tablet Daily, # 30 tab, 2016 [facility] 0 Refill(s) Potassium 20 mEq=1 tab, Active Chloride 20 MEQ PO, Daily, # 90 [facility] Extended Release tab, 1 Refill(s) Tablet [Klor-Con] Alprazolam 1 MG 1 mg=1 tab, PO, Active Oral Tablet Q8H, PRN 2016 [facility] [Xanax] Anxiety, 0 Refill(s) Metformin 1 tab, PO, BID, Active hydrochloride # 60 tab, 0 2015 [facility] 500 MG / Refill(s) repaglinide 1 MG Oral Tablet Acetaminophen 1 tab, PO, Q6H, No Longer 300 MG / Codeine PRN Pain, # 28 Active 2016 [facility] Phosphate 30 MG tab, 0 Refill(s) Oral Tablet [Tylenol with Codeine #3] lisinopril 2.5 2.5 mg=1 tab, Active mg oral tablet PO, Daily, # 30 [facility] tab, 0 Refill(s) clopidogrel 75 75 mg=1 tab, PO, Active MG Oral Tablet Daily, # 30 tab, 2016 [facility] [Plavix] 0 Refill(s) atorvastatin 80 80 mg=1 tab, PO, Active MG Oral Tablet Bedtime, # 30 2016 [facility] [Lipitor] tab, 0 Refill(s) Ceftriaxone 1 gm, Route: Inactive IVPB, Drug form: 2015 [facility] PDR/INJ, ONCE, Dosing Weight 129.545, kg, Priority: STAT, Start date: 02/17/16 7:01:00 CDT, Stop date: 02/17/16 7:01:00 CDT Dilaudid 0.5 mg, Route: Inactive IVP, ONCE, 2015 [facility] Dosing Weight 129.545, kg, Priority: STAT, Start date: 02/17/16 6:28:00 CDT, Stop date: 02/17/16 6:28:00 CDT Zofran 4 mg, Route: Inactive IVP, Drug form: 2015 [facility] INJ, ONCE, Dosing Weight 129.545, kg, Priority: STAT, Start date: 02/17/16 5:32:00 CDT, Stop date: 02/17/16 5:32:00 CDT Dilaudid 0.5 mg, Route: Inactive IVP, ONCE, 2015 [facility] Dosing Weight 129.545, kg, Priority: STAT, Start date: 02/17/16 5:32:00 CDT, Stop date: 02/17/16 5:32:00 CDT Saline Flush 10 mL, Route: Inactive 0.9% IVP, Drug Form: 2015 [facility] INJ, kg, PRN, PRN Line Flush, Start date: 02/17/16 5:19:00 CDT, Duration: 30 day, Stop date: 03/18/16 5:18:00 CDTNotes: (Same as: BD Posiflush) Allergies, Adverse Reactions, Alerts Substance Category Reaction Severity Reaction Status Date Comments Source type Reported beta Assertion Drug Active blockers allergy [facility] Flomax Assertion Drug Active allergy [facility] Stadol Assertion Drug Active MH allergy [facility] traMADol Assertion Drug Active MH allergy [facility] Immunizations Immunization Date Given Site Status Last Updated Comments Source pneumococcal 02/17/2016 Not Given [facility] 23-valent vaccine Results Order Name Results Value Reference Date Interpretation Comments Source Range URINE AND UA Mucus Few /LPF None Seen 05/17 STOOL /LPF [facility] URINE AND UA Leuk Est Negative Negative 05/17 STOOL [facility] (05/17/16 5:16 PM) URINE AND UA Bili Negative Negative 05/17 STOOL [facility] *NA* (05/17/16 5:16 PM) URINE AND UA Ketones Negative Negative 05/17 STOOL mg/dL mg/dL [facility] URINE AND UA Nitrite Negative Negative 05/17 STOOL [facility] (05/17/16 5:16 PM) URINE AND UA 0.2 EU/dL 0.1 - 1.0 05/17 [facility] Urobilinogen [facility] URINE AND UA Turbidity Clear Clear 05/17 [facility]OL [facility] (05/17/16 5:16 PM) URINE AND UA Blood Negative Negative 05/17 STOOL [facility] (05/17/16 5:16 PM) URINE AND UA Glucose Negative Negative 05/17 [facility] mg/dL mg/dL [facility] URINE AND UA Protein Negative Negative 05/17 [facility] mg/dL mg/dL [facility] URINE AND UA pH 6.5 5.0 - 8.0 05/17 STOOL [facility] URINE AND UA Spec Grav 1.020 <=1.030 05/17 STOOL [facility] URINE AND UA Color Yellow Yellow 05/17 [facility]OL [facility] *NA* (05/17/16 5:16 PM) URINE AND UA Sq Epi Rare /LPF Few /LPF 05/17 STOOL [facility] URINE AND UA Bacteria Occasional None Seen 05/17 STOOL /HPF /HPF [facility] URINE AND UA RBC 0-2 /HPF 0 - 2 05/17 STOOL [facility] URINE AND UA WBC 0-2 /HPF None Seen 05/17 STOOL /HPF /2015 [facility] CARDIAC Total CK 74 unit/L 12 - 191 05/17 ENZYMES [facility] CARDIAC CK MB 0.8 ng/mL 0.5 - 3.6 05/17 ENZYMES [facility] CARDIAC Troponin-I null 0.00 - 05/17 ENZYMES 0.40 [facility] CARDIAC CK-MB INDEX 1.1 0.0 - 2.5 05/17 [facility] CHEM PANEL eGFR 79 05/17 Result Comment: [...] is not recommended in the following populations: [facility] 3m2 Individuals with unstable creatinine concentrations, including [...] Lvl 106 meq/L 95 - 109 05/17 [facility] CHEM PANEL CO2 28 meq/L 24 - 32 05/17 [facility] CHEM PANEL Calcium Lvl 8.8 mg/dL 8.5 - 10.5 05/17 [facility] CHEM PANEL Bili Total 0.4 mg/dL 0.2 - 1.3 05/17 [facility] CHEM PANEL AGAP 9.7 meq/L 10.0 - 05/17 20.0 [facility] CHEM PANEL B/C Ratio 14 6 - 25 05/17 [facility] CHEM PANEL ASPARTATE 14 unit/L 0 - 37 05/17 MH [facility] CHEM PANEL Total 7.7 g/dL 6.4 - 8.4 05/17 [facility] CHEM PANEL Globulin 4.4 g/dL 2.7 - 4.2 05/17 [facility] CHEM PANEL A/G Ratio 0.8 0.7 - 1.6 11 [facility] CHEM PANEL Glucose Lvl 148 mg/dL 70 - 99 05/17 [facility] CHEM PANEL BUN 15 mg/dL 7 - 22 05/17 [facility] CHEM PANEL Creatinine 1.11 mg/dL 0.50 - 05/17 MH Lvl 1.40 [facility] CHEM PANEL Sodium Lvl 140 meq/L 135 - 145 05/17 [facility] CHEM PANEL Potassium 3.7 meq/L 3.5 - 5.1 05/17 MH Lvl [facility] CHEM PANEL Albumin Lvl 3.3 g/dL 3.5 - 5.0 05/17 [facility] CHEM PANEL Alk Phos 129 unit/L 39 - 136 05/17 [facility] CHEM PANEL ALANINE 30 unit/L 0 - 65 05/17 AMINOTRANS [facility] RAS HEMATOLOGY MPV 7.3 fL 7.4 - 10.4 05/17 [facility] HEMATOLOGY Platelet 281 K/CMM 133 - 450 05/17 [facility] HEMATOLOGY RBC X 10x6 5.30 M/CMM 4.70 - 05/17 MH 6.10 [facility] HEMATOLOGY WBC X 10x3 10.5 K/CMM 3.7 - 10.4 05/17 [facility] HEMATOLOGY Hgb 12.4 g/dL 14.0 - 05/17 MH 18.0 [facility] HEMATOLOGY Hct 36.8 % 42.0 - 05/17 MH 54.0 [facility] HEMATOLOGY MCV 69.4 fL 80.0 - 05/17 MH 94.0 [facility] HEMATOLOGY MCH 23.4 pg 27.0 - 05/17 MH 31.0 [facility] HEMATOLOGY MCHC 33.7 g/dL 32.0 - 05/17 MH 36.0 /2015 [facility] HEMATOLOGY RDW 17.1 % 11.5 - 05/17 [facility] 14.5 /2015 [facility] HEMATOLOGY aPTT 35.4 s 22.9 - 05/17 35.8 /2015 [facility] HEMATOLOGY PROTIME 13.1 s 12.0 - 05/17 MH 14.7 /2015 [facility] HEMATOLOGY INR 0.97 0.85 - 05/17 [facility] 1.17 /2015 [facility] HEMATOLOGY Eosinophils 1.1 % 0.0 - 4.0 05/17 [facility] HEMATOLOGY Monocytes 6.7 % 2.0 - 12.0 05/17 [facility] HEMATOLOGY Segs-Bands # 7.2 K/CMM 1.5 - 8.1 05/17 [facility] HEMATOLOGY Basophils 1.1 % 0.0 - 1.0 05/17 [facility] HEMATOLOGY Lymphocytes 2.4 K/CMM 1.0 - 5.5 05/17 # /2015 [facility] HEMATOLOGY Monocytes # 0.7 K/CMM 0.0 - 0.8 05/17 [facility] HEMATOLOGY Eosinophils 0.1 K/CMM 0.0 - 0.5 05/17 # /2015 [facility] HEMATOLOGY Microcyte 2+ None Seen 05/17 [facility] *ABN* (05/17/16 4:01 PM) HEMATOLOGY Basophils # 0.1 K/CMM 0.0 - 0.2 05/17 [facility] HEMATOLOG[facility] Lymphocytes 22.3 % 20.0 - 05/17 40.0 [facility] HEMAT[facility] Segs 68.8 % 45.0 - 05/17 75.0 [facility] Chest 1view Chest 1view Portable chest: The cardiomediastinal silhouette and pulmonary vasculature are within normal limits. The lungs and pleural spaces are clear. There are no acute osseous abnormalities. There is no significant change compared to 05/05/2016. 05/17 - [facility] DX DX /2015 - [place] IMPRESSION: Read by: Rizwan Barnhart MD Dictated Date/time: 05/17/16 16:37 Electronically Signed by: Rizwan Barnhart MD 05/17/16 16:38 FINAL REPORT No acute radiographic abnormality in the chest. [id number] CARDIAC Troponin-I null 0.00 - 05/06 ENZYMES 0.40 [facility]EMAT[facility] aPTT 50.1 s 22.9 - 05/06 MH 35.8 2016 [facility] ELECTROLYTE AGAP 10.8 meq/L 10.0 - 05/06 S 20.0 [facility] ELECTR[facility] CO2 28 meq/L 24 - 32 05/06 S [facility]LECT[facility] Chloride Lvl 105 meq/L 95 - 109 05/06 S [facility] ELECTR[facility] Calcium Lvl 8.7 mg/dL 8.5 - 10.5 05/06 S [facility] ELECTROLYTE eGFR 103 05/06 Result Comment: The [...] is not recommended in the following populations: [address] Individuals with unstable creatinine concentrations, including [...] 123 mg/dL 70 - 99 05/06 [facility]LECT[facility] Creatinine 0.86 mg/dL 0.50 - 05/06 S Lvl 1.40 [facility] BUN 18 mg/dL 7 - 22 05/06 S [facility] Potassium 3.8 meq/L 3.5 - 5.1 05/06 S Lvl [facility] Sodium Lvl 140 meq/L 135 - 145 05/06 S [facility] HEMATOLOGY Microcyte 2+ None Seen 05/06 [facility] *ABN* (05/06/16 2:42 AM) HEMATOLOGY Eosinophils 0.2 K/CMM 0.0 - 0.5 05/06 # /2015 [facility] HEMATOLOG[facility] Monocytes # 0.8 K/CMM 0.0 - 0.8 05/06 [facility]EMAT[facility] Monocytes 7.9 % 2.0 - 12.0 05/06 [facility] HEMATOLOG[facility] Lymphocytes 2.5 K/CMM 1.0 - 5.5 05/06 [facility] # /2016 [facility] HEMAT[facility] Segs-Bands # 6.5 K/CMM 1.5 - 8.1 05/06 [facility]EMAT[facility] Basophils 0.4 % 0.0 - 1.0 05/06 MH [facility]EM[facility] Eosinophils 1.7 % 0.0 - 4.0 05/06 /2015 [facility]EMAT[facility] Lymphocytes 24.8 % 20.0 - 05/06 MH 40.0 [facility] HEMAT[facility] Segs 65.2 % 45.0 - 05/06 MH 75.0 [facility]EMAT[facility] RBC X 10x6 5.11 M/CMM 4.70 - 05/06 MH 6.10 [facility]EMAT[facility] Hct 36.2 % 42.0 - 05/06 MH 54.0 [facility]EMAT[facility] Hgb 11.8 g/dL 14.0 - 05/06 MH 18.0 [facility]EMAT[facility] Platelet 272 K/CMM 133 - 450 05/06 [facility]EMAT[facility] RDW 17.1 % 11.5 - 05/06 14. [facility]EMAT[facility] MPV 7.8 fL 7.4 - 10.4 05/06 /2015 [facility]EMAT[facility] WBC X 10x3 9.9 K/CMM 3.7 - 10.4 05/06 [facility]EMAT[facility] MCHC 32.5 g/dL 32.0 - 05/06 MH 36.0 [facility]EMAT[facility] MCH 23.0 pg 27.0 - 05/06 31.0 [facility]EMAT[facility] MCV 70.8 fL 80.0 - 05/06 94.0 [facility]EMAT[facility] PROTIME 13.4 s 12.0 - 05/06 14. [facility]EMAT[facility] INR 1.00 0.85 - 05/06 MH 1.17 [facility]EMAT[facility] aPTT 49.1 s 22.9 - 05/06 35.8 [facility] URINE AND UA Bacteria None Seen None Seen 05/06 STOOL [facility] (05/05/16 10:09 PM) URINE AND UA Blood Negative Negative 05/06 [facility] (05/05/16 10:09 PM) URINE AND UA RBC 0-2 /HPF 0 - 2 05/06 [facility] URINE AND UA WBC None Seen None Seen 05/06 [facility] (05/05/16 10:09 PM) URINE AND UA Sq Epi None Seen Few 05/06 [facility] (05/05/16 10:09 PM) URINE AND UA Leuk Est Negative Negative 05/06 [facility] (05/05/16 10:09 PM) URINE AND UA 0.2 EU/dL 0.1 - 1.0 05/06 [facility] Urobilinogen [facility] URINE AND UA Nitrite Negative Negative 05/06 [facility] (05/05/16 10:09 PM) URINE AND UA Color Yellow Yellow 05/06 [facility] *NA* (05/05/16 10:09 PM) URINE AND UA Glucose Negative Negative 05/06 [facility] (05/05/16 10:09 PM) URINE AND UA Bili Negative Negative 05/06 [facility] *NA* (05/05/16 10:09 PM) URINE AND UA Ketones Negative Negative 05/06 [facility] *NA* (05/05/16 10:09 PM) URINE AND UA Protein Negative Negative 05/06 [facility] (05/05/16 10:09 PM) URINE AND UA pH 6.0 5.0 - 8.0 05/06 [facility] URINE AND UA Turbidity Clear Clear 05/06 [facility] (05/05/16 10:09 PM) URINE AND UA Spec Grav >=1.030 <=1.030 05/06 [facility] *ABN* (05/05/16 10:09 PM) BACTERIAL - MRSA by PCR Negative 05/06 SEROLOGY [facility] (05/05/16 10:06 PM) HEMATOLOGY Basophils # 0.1 K/CMM 0.0 - 0.2 05/06 [facility]EMAT[facility] Microcyte 2+ None Seen 05/06 [facility] *ABN* (05/05/16 9:38 PM) HEMATOLOGY Eosinophils 1.4 % 0.0 - 4.0 05/06 [facility]EMAT[facility] Basophils 0.7 % 0.0 - 1.0 05/06 [facility] HEMAT[facility] Segs-Bands # 7.1 K/CMM 1.5 - 8.1 05/06 /2015 [facility]EMAT[facility] Lymphocytes 24.8 % 20.0 - 05/06 MH 40.0 /2015 [facility]EM[facility] Monocytes 7.9 % 2.0 - 12.0 05/06 /2015 [facility]EMAT[facility] Monocytes # 0.9 K/CMM 0.0 - 0.8 05/06 /2015 [facility]EMAT[facility] Eosinophils 0.2 K/CMM 0.0 - 0.5 05/06 [facility] # /2015 [facility]EMAT[facility] Lymphocytes 2.7 K/CMM 1.0 - 5.5 05/06 [facility] # /2015 [facility]EMAT[facility] Segs 65.2 % 45.0 - 05/06 MH 75.0 /2015 [facility]EMAT[facility] MCV 69.7 fL 80.0 - 05/06 MH 94.0 [facility]EMAT[facility] MCH 23.3 pg 27.0 - 05/06 MH 31.0 [facility]EM[facility] Hgb 12.2 g/dL 14.0 - 05/06 MH 18.0 [facility]EMAT[facility] Hct 36.5 % 42.0 - 05/06 MH 54.0 [facility]EMAT[facility] MCHC 33.4 g/dL 32.0 - 05/06 MH 36.0 [facility]EMAT[facility] Platelet 276 K/CMM 133 - 450 05/06 /2015 [facility]EMAT[facility] MPV 7.2 fL 7.4 - 10.4 05/06 /2015 [facility]EM[facility] RDW 17.5 % 11.5 - 05/06 MH 14. [facility] WBC X 10x3 11.0 K/CMM 3.7 - 10.4 05/06 [facility] RBC X 10x6 5.24 M/CMM 4.70 - 05/06 MH 6.10 [facility]EMAT[facility] INR 1.05 0.85 - 05/06 MH 1.17 [facility]EM[facility] PROTIME 13.9 s 12.0 - 05/06 14. [facility]EMAT[facility] aPTT 35.3 s 22.9 - 05/06 MH 35.8 [facility] CARDIAC CK-MB INDEX 1.0 0.0 - 2.5 05/05 ENZYMES /2015 [facility] CARDIAC CK MB 0.8 ng/mL 0.5 - 3.6 05/05 ENZYMES /2015 [facility] CARDI[facility] Total CK 80 unit/L 12 - 191 05/05 [facility] C[facility] Troponin-I null 0.00 - 05/05 [facility] 0.40 [facility] CHEM PANEL Alk Phos 133 unit/L 39 - 136 05/05 [facility] CHEM PANEL Glucose Lvl 137 mg/dL 70 - 99 05/05 [facility] CHEM PANEL BUN 17 mg/dL 7 - 22 05/05 [facility] CHEM PANEL Creatinine 1.01 mg/dL 0.50 - 05/05 [facility] Lvl 1.40 [facility] CHEM PANEL Sodium Lvl 139 meq/L 135 - 145 05/05 [facility] CHEM PANEL ALANINE 34 unit/L 0 - 65 05/05 AMINOTRANSFE [facility] RASE CHEM PANEL Albumin Lvl 3.3 g/dL 3.5 - 5.0 05/05 [facility] CHEM PANEL Chloride Lvl 105 meq/L 95 - 109 05/05 [facility] CHEM PANEL eGFR 88 05/05 Result Comment: [...] is not recommended in the following populations: [address] Individuals with unstable creatinine concentrations, including [...] Total 0.4 mg/dL 0.2 - 1.3 05/05 [facility] CHEM PANEL Calcium Lvl 8.6 mg/dL 8.5 - 10.5 05/05 [facility] CHEM PANEL Potassium 3.7 meq/L 3.5 - 5.1 05/05 Lvl [facility] CHEM PANEL CO2 28 meq/L 24 - 32 05/05 [facility] CHEM PANEL Total 7.8 g/dL 6.4 - 8.4 05/05 [facility] CHEM PANEL ASPARTATE 16 unit/L 0 - 37 05/05 [facility] CHEM PANEL AGAP 9.7 meq/L 10.0 - 05/05 MH 20.0 [facility] CHEM PANEL B/C Ratio 17 6 - 25 05/05 [facility] CHEM PANEL Globulin 4.5 g/dL 2.7 - 4.2 05/05 [facility] CHEM PANEL A/G Ratio 0.7 0.7 - 1.6 05/05 [facility]EMAT[facility] Monocytes # 0.8 K/CMM 0.0 - 0.8 05/05 [facility]EMAT[facility] Eosinophils 0.1 K/CMM 0.0 - 0.5 05/05 # [facility] Basophils # 0.1 K/CMM 0.0 - 0.2 05/05 [facility]EMAT[facility] Microcyte 2+ None Seen 05/05 [facility] *ABN* (05/05/16 5:11 PM) HEMATOLOGY Monocytes 7.5 % 2.0 - 12.0 05/05 [facility]EMAT[facility] Eosinophils 1.1 % 0.0 - 4.0 05/05 [facility]EMAT[facility] Basophils 0.7 % 0.0 - 1.0 05/05 [facility] HEMAT[facility] Segs-Bands # 7.5 K/CMM 1.5 - 8.1 05/05 [facility]EMAT[facility] Lymphocytes 2.1 K/CMM 1.0 - 5.5 05/05 [facility]EMAT[facility] Lymphocytes 19.9 % 20.0 - 05/05 MH 40.0 [facility] HEMAT[facility] Segs 70.8 % 45.0 - 05/05 MH 75.0 [facility]EMAT[facility] Platelet 306 K/CMM 133 - 450 05/05 [facility] MCHC 33.6 g/dL 32.0 - 05/05 MH 36.0 [facility]EM[facility] MPV 7.3 fL 7.4 - 10.4 05/05 [facility] RDW 16.9 % 11.5 - 05/05 MH 14. [facility]EMAT[facility] MCV 69.5 fL 80.0 - 05/05 MH 94.0 [facility]EMAT[facility] MCH 23.4 pg 27.0 - 05/05 MH 31.0 [facility]EMAT[facility] Hct 37.4 % 42.0 - 05/05 MH 54.0 [facility]EMAT[facility] Hgb 12.6 g/dL 14.0 - 05/05 MH 18.0 [facility]EMAT[facility] WBC X 10x3 10.6 K/CMM 3.7 - 10.4 05/05 [facility] RBC X 10x6 5.39 M/CMM 4.70 - 05/05 MH 6.10 [facility] Chest 1view Chest 1view EXAM: Chest 1view DX 05/05 - [facility] DX DX /2015 - [place] DATE: 05/05/2016 4:55 PM [facility] INDICATION: Chest pain Read by: Tito Farnsworth MD Dictated Date/time: 05/05/16 17:34 COMPARISON: 03/05/2016. Electronically Signed by: Tito Farnsworth MD 05/05/16 17:34 FINAL REPORT IMPRESSION: Stable mildly enlarged cardiac silhouette. Atherosclerotic thoracic aorta. No focal consolidation, significant pleural effusion or pneumothorax. SL: [id number] CHEM PANEL Globulin 4.2 g/dL 2.7 - 4.2 04/25 [facility] PAN[facility] B/C Ratio 19 6 - 25 04/25 [facility] CHEM PANEL AGAP 9.9 meq/L 10.0 - 04/25 20.0 [facility] CHEM PANEL A/G Ratio 0.8 0.7 - 1.6 04/25 [facility] CHEM PANEL eGFR 100 04/25 Result Comment: [...] is not recommended in the following populations: [address] Individuals with unstable creatinine concentrations, including [...] Phos 128 unit/L 39 - 136 04/25 [facility] CHEM PANEL Albumin Lvl 3.4 g/dL 3.5 - 5.0 04/25 [facility] CHEM PANEL ALANINE 30 unit/L 0 - 65 04/25 AMINOTRANSFE [facility] RASE CHEM PANEL Total 7.6 g/dL 6.4 - 8.4 04/25 Protein [facility] CHEM PANEL Bili Total 0.3 mg/dL 0.2 - 1.3 04/25 [facility] CHEM PANEL ASPARTATE 14 unit/L 0 - 37 04/25 TRANSAMINASE [facility] CHEM PANEL CO2 26 meq/L 24 - 32 04/25 [facility] CHEM PANEL Calcium Lvl 8.7 mg/dL 8.5 - 10.5 04/25 [facility] CHEM PANEL Chloride Lvl 104 meq/L 95 - 109 04/25 [facility] CHEM PANEL Potassium 3.9 meq/L 3.5 - 5.1 04/25 MH Lvl /2015 [facility] CHEM PANEL Glucose Lvl 221 mg/dL 70 - 99 04/25 [facility] CHEM PANEL Sodium Lvl 136 meq/L 135 - 145 04/25 [facility] CHEM PANEL Creatinine 0.91 mg/dL 0.50 - 04/25 [facility] Lvl 1.40 [facility] CHEM PANEL BUN 17 mg/dL 7 - 22 04/25 [facility]EMAT[facility] RBC X 10x6 5.40 M/CMM 4.70 - 04/25 MH 6.10 [facility]EMAT[facility] WBC X 10x3 10.3 K/CMM 3.7 - 10.4 04/25 [facility]EMAT[facility] Hgb 12.9 g/dL 14.0 - 04/25 MH 18.0 [facility]EMAT[facility] MPV 7.2 fL 7.4 - 10.4 04/25 [facility] HEMAT[facility] RDW 16.8 % 11.5 - 04/25 MH 14. [facility]EM[facility] Platelet 313 K/CMM 133 - 450 04/25 [facility] HEMAT[facility] MCH 23.8 pg 27.0 - 04/25 MH 31.0 [facility] HEMAT[facility] MCHC 34.0 g/dL 32.0 - 04/25 36.0 /2015 [facility] HEMAT[facility] Hct 37.9 % 42.0 - 04/25 MH 54.0 /2015 [facility] HEMATOLOG[facility] MCV 70.1 fL 80.0 - 04/25 94.0 /2015 [facility] HEMATOLOG[facility] Lymphocytes 2.3 K/CMM 1.0 - 5.5 04/25 [facility] # /2016 [facility]EMAT[facility] Eosinophils 0.1 K/CMM 0.0 - 0.5 04/25 # /2015 [facility]EMAT[facility] Monocytes # 0.6 K/CMM 0.0 - 0.8 04/25 [facility]EMAT[facility] Basophils # 0.1 K/CMM 0.0 - 0.2 04/25 [facility] HEMATOLOG[facility] Microcyte 2+ None Seen 04/25 [facility] *ABN* (04/25/16 6:17 PM) HEMATOLOGY Segs 69.2 % 45.0 - 04/25 MH 75.0 /2015 [facility] HEMATOLOGY Segs-Bands # 7.1 K/CMM 1.5 - 8.1 04/25 [facility] HEMAT[facility] Monocytes 6.1 % 2.0 - 12.0 04/25 [facility]EMAT[facility] Basophils 1.1 % 0.0 - 1.0 04/25 [facility]EMAT[facility] Eosinophils 1.1 % 0.0 - 4.0 04/25 [facility] Lymphocytes 22.5 % 20.0 - 04/25 40.0 /2016 [facility] URINE AND UA WBC 0-2 /HPF None Seen 04/25 [facility]OOL /HPF [facility] URINE AND UA RBC 0-2 /HPF 0 - 2 04/25 [facility] URINE AND UA Bacteria Occasional None Seen 04/25 [facility] /HPF /HPF [facility] URINE AND UA Leuk Est Negative Negative 04/25 [facility] (04/25/16 6:17 PM) URINE AND UA Sq Epi Occasional Few /LPF 04/25 STOOL /LPF /2015 [facility] URINE AND UA pH 6.0 5.0 - 8.0 04/25 [facility] URINE AND UA Protein Negative Negative 04/25 [facility] (04/25/16 6:17 PM) URINE AND UA Glucose 250 mg/dL Negative 04/25 STOOL mg/dL /2015 [facility] URINE AND UA Ketones Negative Negative 04/25 [facility] *NA* (04/25/16 6:17 PM) URINE AND UA Bili Negative Negative 04/25 [facility] *NA* (04/25/16 6:17 PM) URINE AND UA Blood Negative Negative 04/25 [facility] (04/25/16 6:17 PM) URINE AND UA 0.2 EU/dL 0.1 - 1.0 04/25 [facility] Urobilinogen [facility] URINE AND UA Nitrite Negative Negative 04/25 [facility] (04/25/16 6:17 PM) URINE AND UA Color Yellow Yellow 04/25 [facility] *NA* (04/25/16 6:17 PM) URINE AND UA Turbidity Clear Clear 04/25 [facility] (04/25/16 6:17 PM) URINE AND UA Spec Grav 1.020 <=1.030 04/25 [facility] Renal Stone Renal Stone EXAM: CT ABDOMEN AND PELVIS WITHOUT CONTRAST [facility] CT [facility] DATE: 04/25/2016 6:07 PM CDT Read [...] provided. IV contrast: None. CT Radiation Dose: [id number] mGy-cm FINDINGS: Evaluation of the solid organs [...] infrarenal abdominal aorta without aneurysmal dilatation. SL: [id number] CARDIAC Troponin-I null 0.00 - 03/05 [facility] ENZYMES 0.40 /2015 [facility] CARDIAC CK MB 0.8 ng/mL 0.5 - 3.6 03/05 MH ENZYMES /2016 [facility] CARDIAC Total CK 60 unit/L - 191 03/05 MH ENZYMES /2016 [facility] CARDIAC CK-MB INDEX 1.3 0.0 - 2.5 03/05 MH ENZYMES /2016 [facility] CARDIAC Troponin-I null 0.00 - 03/05 MH ENZYMES 0.40 2016 [facility] CARDIAC Total CK 66 unit/L - 191 03/05 MH ENZYMES /2016 [facility] CARDIAC CK MB 0.6 ng/mL 0.5 - 3.6 03/05 MH ENZYMES /2016 [facility] CARDIAC CK-MB INDEX 0.9 0.0 - 2.5 03/05 [facility] ENZYMES /2016 [facility] CHEM PANEL eGFR 103 03/05 Result Comment: [...] is not recommended in the following populations: [address] Individuals with unstable creatinine concentrations, including [...] 12.0 meq/L 10.0 - 09 MH 20.0 [facility] CHEM PANEL Globulin 4.4 g/dL 2.7 - 4.2 03/05 [facility] CHEM PANEL B/C Ratio 14 6 - 25 03/05 [facility] CHEM PANEL A/G Ratio 0.8 0.7 - 1.6 03/05 [facility] CHEM PANEL Calcium Lvl 8.8 mg/dL 8.5 - 10.5 03/05 [facility] CHEM PANEL Bili Total 0.6 mg/dL 0.2 - 1.3 03/05 [facility] CHEM PANEL Total 7.8 g/dL 6.4 - 8.4 03/05 Protein [facility] CHEM PANEL ASPARTATE 16 unit/L 0 - 37 03/05 [facility] CHEM PANEL Alk Phos 128 unit/L 39 - 136 03/05 [facility] CHEM PANEL Glucose Lvl 97 mg/dL 70 - 99 03/05 [facility] CHEM PANEL Creatinine 0.88 mg/dL 0.50 - 03/05 [facility] Lvl 1.40 [facility] CHEM PANEL BUN 12 mg/dL 7 - 22 03/05 [facility] CHEM PANEL Sodium Lvl 138 meq/L 135 - 145 03/05 [facility] CHEM PANEL ALANINE 32 unit/L 0 - 65 03/05 AMINOTRANS [facility] RASE CHEM PANEL Albumin Lvl 3.4 g/dL 3.5 - 5.0 03/05 [facility] CHEM PANEL Potassium 4.0 meq/L 3.5 - 5.1 03/05 MH Lvl [facility] CHEM PANEL Chloride Lvl 105 meq/L 95 - 109 03/05 [facility] CHEM PANEL CO2 25 meq/L 24 - 32 03/05 [facility] HEMATOLOGY Platelet 294 K/CMM 133 - 450 03/05 [facility] HEMATOLOGY MPV 7.4 fL 7.4 - 10.4 03/05 [facility] HEMATOLOGY WBC X 10x3 10.0 K/CMM 3.7 - 10.4 03/05 [facility] HEMATOLOGY RDW 16.6 % 11.5 - 03/05 MH 14.5 [facility] HEMATOLOG[facility] MCH 24.1 pg 27.0 - 03/05 MH 31.0 [facility] HEMATOLOG[facility] MCHC 33.4 g/dL 32.0 - 03/05 MH 36.0 [facility] HEMATOLOGY MCV 72.2 fL 80.0 - 03/05 MH 94.0 [facility] HEMATOLOGY Hct 38.1 % 42.0 - 03/05 MH 54.0 [facility] HEMATOLOG[facility] RBC X 10x6 5.28 M/CMM 4.70 - 03/05 MH 6.10 [facility] HEMATOLOGY Hgb 12.7 g/dL 14.0 - 03/05 MH 18.0 [facility] HEMATOLOGY Microcyte 1+ None Seen 03/05 [facility] *ABN* (03/05/16 7:30 AM) HEMATOLOGY Basophils # 0.1 K/CMM 0.0 - 0.2 03/05 [facility] HEMATOLOGY Monocytes # 0.7 K/CMM 0.0 - 0.8 03/05 [facility] HEMATOLOGY Eosinophils 0.1 K/CMM 0.0 - 0.5 03/05 MH # /2015 [facility] HEMATOLOGY Segs-Bands # 7.5 K/CMM 1.5 - 8.1 03/05 [facility] HEMATOLOGY Lymphocytes 1.6 K/CMM 1.0 - 5.5 03/05 # /2015 [facility] HEMATOLOGY Eosinophils 1.2 % 0.0 - 4.0 03/05 [facility] HEMATOLOGY Basophils 0.6 % 0.0 - 1.0 03/05 [facility] HEMATOLOGY Segs 75.1 % 45.0 - 03/05 MH 75.0 [facility] HEMATOLOGY Monocytes 7.4 % 2.0 - 12.0 03/05 [facility] HEMATOLOGY Lymphocytes 15.7 % 20.0 - 03/05 40.0 [facility] Chest 1view Chest 1view Patient Name: ANNABEL MCCONNELL 03/05 [facility] - [place] : 1970; Age: 45 years y/o Male MR: [id number] Read by: Jason Dozier MD Dictated Date/time: [...] unremarkable. IMPRESSION: 1. No active disease. SL: [id number] URINE AND UA RBC 0-2 /HPF 0 - 2 03/02 [facility] URINE AND UA Sq Epi None Seen Few 03/02 [facility] (03/02/16 8:22 AM) URINE AND UA WBC None Seen None Seen 03/02 [facility] (03/02/16 8:22 AM) URINE AND UA pH 6.0 5.0 - 8.0 03/02 [facility] URINE AND UA Protein Negative Negative 03/02 STOOL mg/dL mg/dL [facility] URINE AND UA Glucose Negative Negative 03/02 STOOL mg/dL mg/dL [facility] URINE AND UA Ketones Negative Negative 03/02 STOOL mg/dL mg/dL [facility] URINE AND UA Bili Negative Negative 03/02 [facility] *NA* (03/02/16 8:22 AM) URINE AND UA Color Yellow Yellow 03/02 [facility] *NA* (03/02/16 8:22 AM) URINE AND UA Turbidity Clear Clear 03/02 [facility] (03/02/16 8:22 AM) URINE AND UA Spec Grav 1.015 <=1.030 03/02 [facility] URINE AND UA Blood Negative Negative 03/02 [facility] (03/02/16 8:22 AM) URINE AND UA 0.2 EU/dL 0.1 - 1.0 03/02 STOOL Urobilinogen [facility] URINE AND UA Nitrite Negative Negative 03/02 [facility] (03/02/16 8:22 AM) URINE AND UA Leuk Est Negative Negative 03/02 STOOL [facility] (03/02/16 8:22 AM) CHEM PANEL A/G Ratio 0.7 0.7 - 1.6 03/02 [facility] CHEM PANEL Globulin 4.6 g/dL 2.7 - 4.2 03/02 [facility] CHEM PANEL B/C Ratio 16 6 - 25 03/02 [facility] CHEM PANEL AGAP 10.4 meq/L 10.0 - 03/02 MH 20.0 [facility] CHEM PANEL Total 8.0 g/dL 6.4 - 8.4 03/02 Protein [facility] CHEM PANEL Bili Total 0.3 mg/dL 0.2 - 1.3 03/02 [facility] CHEM PANEL Calcium Lvl 8.7 mg/dL 8.5 - 10.5 03/02 [facility] CHEM PANEL CO2 26 meq/L 24 - 32 03/02 [facility] CHEM PANEL Chloride Lvl 106 meq/L 95 - 109 03/02 [facility] CHEM PANEL Sodium Lvl 138 meq/L 135 - 145 03/02 [facility] CHEM PANEL Potassium 4.4 meq/L 3.5 - 5.1 03/02 Lv [facility] CHEM PANEL eGFR 83 03/02 Result Comment: [...] is not recommended in the following populations: [facility] 3[facility]2 Individuals with unstable creatinine concentrations, including [...] ASPARTATE 13 unit/L 0 - 37 03/02 [facility] CHEM PANEL Creatinine 1.07 mg/dL 0.50 - 03/02 MH Lvl 1.40 /2015 [facility] CHEM PANEL BUN 17 mg/dL 7 - 22 03/02 [facility] CHEM PANEL Glucose Lvl 106 mg/dL 70 - 99 03/02 [facility] CHEM PANEL Alk Phos 127 unit/L 39 - 136 03/02 [facility] CHEM PANEL Albumin Lvl 3.4 g/dL 3.5 - 5.0 03/02 [facility] CHEM PANEL ALANINE 33 unit/L 0 - 65 03/02 AMINOTRANSFE /2015 [facility] RASE CHEM PANEL Lipase Lvl 164 unit/L 73 - 393 03/02 [facility] HEMATOLOGY Basophils # 0.1 K/CMM 0.0 - 0.2 03/02 [facility] HEMATOLOGY Microcyte 1+ None Seen 03/02 [facility] *ABN* (03/02/16 5:41 AM) HEMATOLOGY Monocytes 6.7 % 2.0 - 12.0 03/02 [facility] HEMATOLOGY Lymphocytes 21.9 % 20.0 - 03/02 MH 40.0 [facility] HEMATOLOGY Eosinophils 1.5 % 0.0 - 4.0 03/02 [facility] HEMATOLOGY Segs 69.1 % 45.0 - 03/02 75.0 [facility] HEMATOLOGY Monocytes # 0.8 K/CMM 0.0 - 0.8 03/02 [facility] HEMATOLOGY Lymphocytes 2.6 K/CMM 1.0 - 5.5 03/02 MH # [facility] HEMATOLOGY Eosinophils 0.2 K/CMM 0.0 - 0.5 03/02 MH [facility] HEMATOLOGY Segs-Bands # 8.1 K/CMM 1.5 - 8.1 03/02 [facility] HEMATOLOGY Basophils 0.8 % 0.0 - 1.0 03/02 [facility] HEMATOLOGY WBC X 10x3 11.8 K/CMM 3.7 - 10.4 03/02 [facility] HEMATOLOGY Hct 37.4 % 42.0 - 03/02 MH 54.0 [facility] HEMATOLOGY RBC X 10x6 5.18 M/CMM 4.70 - 03/02 MH 6.10 [facility] HEMATOLOGY Hgb 12.5 g/dL 14.0 - 03/02 MH 18.0 /2015 [facility] HEMATOLOGY MCH 24.1 pg 27.0 - 03/02 MH 31.0 /2015 [facility] HEMATOLOGY RDW 16.7 % 11.5 - 03/02 MH 14.5 /2015 [facility] HEMATOLOGY MCHC 33.4 g/dL 32.0 - 03/02 MH 36.0 /2015 [facility] HEMATOLOGY MCV 72.1 fL 80.0 - 03/02 94.0 /2015 [facility] HEMATOLOGY MPV 7.7 fL 7.4 - 10.4 03/02 [facility] HEMATOLOGY Platelet 303 K/CMM 133 - 450 03/02 [facility] Chest/Abdom Chest/Abdome CT THORAX/ABDOMEN/PELVIS WITH IV CONTRAST WITH SAGITTAL AND CORONAL REFORMATTED IMAGES 03/02 - [facility] en/Pelvis w n/Pelvis w - [place] IV contrast IV contrast CT CT HISTORY: [...] colonic diverticulosis, small abdominal aortic aneurysm. SL: [id number] Abdomen RUQ Abdomen RUQ ULTRASOUND ABDOMEN RIGHT UPPER QUADRANT 03/02 - [facility] US US /2015 - [place] HISTORY: Abdominal pain, acute; right flank pain [...] steatosis. 2. Otherwise normal abdominal ultrasound. SL: [id number] Renal Stone Renal Stone Patient Name: ANNABEL MCCONNELL 03/02 [facility] CT CT /2015 [facility] : 1970; Age: 45 years y/o Male MR: [id number] Read by: John Paul Carrero MD Dictated Date/time: 03/02/16 05:55 Electronically Signed by: John Paul Carrero MD 03/02/16 05:59 FINAL REPORT Study: Renal Stone CT 03/02/2016 5:25 AM CDT Ordering Physician: Clinical Indication: Abdominal pain, acute; Comparison: None TECHNIQUE: Noncontrasted helical imaging was performed from the kidneys through the symphysis as a renal stone protocol. Multiplanar reformations are available. CT Radiation Dose: [id number] mGy-cm FINDINGS: This examination is limited for [...] - 5.1 02/18 MH S Lvl /2015 [facility] ELECTROLYTE Chloride Lvl 104 meq/L 95 - 109 02/18 S [facility] ELECTROLYTE Sodium Lvl 136 meq/L 135 - 145 02/18 MH S /2015 [facility] ELECTROLYTE Glucose Lvl 147 mg/dL 70 - 99 02/18 MH S [facility] ELECTROL[facility]TE Creatinine 0.88 mg/dL 0.50 - 02/18 MH S Lvl 1.40 [facility] ELECTROLYTE BUN 10 mg/dL 7 - 22 02/18 MH S /2015 [facility] ELECTROLYTE eGFR 103 02/18 Result Comment: The [...] is not recommended in the following populations: [facility] 3[facility]2 Individuals with unstable creatinine concentrations, including [...] 8.5 - 10.5 02/18 MH S /2015 [facility] ELECTROLYTE CO2 24 meq/L 24 - 32 02/18 MH S /2015 [facility] ELECTROLYTE AGAP 12.4 meq/L 10.0 - 02/18 MH S 20.0 [facility] HEMATOLOGY RDW 16.3 % 11.5 - 02/18 MH 14. [facility] HEMATOLOGY Platelet 273 K/CMM 133 - 450 02/18 [facility] HEMATOLOGY MPV 7.5 fL 7.4 - 10.4 02/18 [facility] HEMATOLOGY Hgb 12.8 g/dL 14.0 - 02/18 MH 18.0 [facility] HEMATOLOGY RBC X 10x6 5.31 M/CMM 4.70 - 02/18 MH 6.10 [facility] HEMATOLOGY WBC X 10x3 11.1 K/CMM 3.7 - 10.4 02/18 [facility] HEMATOLOGY MCV 72.6 fL 80.0 - 02/18 MH 94.0 [facility] HEMATOLOGY Hct 38.6 % 42.0 - 02/18 MH 54.0 [facility] HEMATOLOGY MCH 24.1 pg 27.0 - 02/18 MH 31.0 [facility] HEMATOLOGY MCHC 33.1 g/dL 32.0 - 02/18 MH 36.0 [facility] CARDIAC Troponin-I null 0.00 - 02/17 MH ENZYMES 0.40 [facility] HEMATOLOGY Monocytes 7.9 % 2.0 - 12.0 02/17 [facility] HEMATOLOGY Lymphocytes 20.8 % 20.0 - 02/17 MH 40.0 [facility] HEMATOLOGY Segs 69.1 % 45.0 - 02/17 MH 75.0 [facility] HEMATOLOGY Lymphocytes 2.2 K/CMM 1.0 - 5.5 02/17 MH /2015 [facility] HEMATOLOGY Monocytes # 0.8 K/CMM 0.0 - 0.8 02/17 [facility] HEMATOLOGY Eosinophils 1.6 % 0.0 - 4.0 02/17 [facility] HEMATOLOGY Segs-Bands # 7.5 K/CMM 1.5 - 8.1 02/17 [facility] HEMATOLOGY Basophils 0.6 % 0.0 - 1.0 02/17 [facility] HEMATOLOGY Microcyte 1+ None Seen 02/17 [facility] *ABN* (02/18/16 5:20 AM) HEMATOLOGY Basophils # 0.1 K/CMM 0.0 - 0.2 02/17 [facility] HEMATOLOGY Eosinophils 0.2 K/CMM 0.0 - 0.5 02/17 MH # /2015 [facility] HEMATOLOGY RBC X 10x6 4.91 M/CMM 4.70 - 02/17 MH 6.10 [facility] HEMATOLOGY WBC X 10x3 10.8 K/CMM 3.7 - 10.4 02/17 [facility] HEMATOLOGY MCH 24.1 pg 27.0 - 02/17 MH 31.0 [facility] HEMATOLOG[facility] MCV 73.1 fL 80.0 - 02/17 MH 94.0 [facility] HEMATOLOGY Hct 35.9 % 42.0 - 02/17 MH 54.0 [facility] HEMATOLOG[facility] Hgb 11.8 g/dL 14.0 - 02/17 MH 18.0 [facility] HEMATOLOGY MPV 7.4 fL 7.4 - 10.4 02/17 [facility] HEMATOLOGY RDW 16.3 % 11.5 - 02/17 14.5 [facility] HEMATOLOGY MCHC 33.0 g/dL 32.0 - 02/17 MH 36.0 [facility] HEMATOLOGY Platelet 270 K/CMM 133 - 450 02/17 [facility] CARDIAC Troponin-I null 0.00 - 02/16 ENZYMES 0. [facility] CHEM PANEL Procalcitoni null 0.00 - 02/16 n Lvl 0.10 [facility] CARDIAC Troponin-I null 0.00 - 02/16 ENZYMES 0.40 [facility] URINE AND UA Bacteria None Seen None Seen 02/16 STOOL /2015 [facility] (02/17/16 6:27 AM) URINE AND UA RBC None Seen 0 - 2 02/16 STOOL /2015 [facility] (02/17/16 6:27 AM) URINE AND UA Mucus Few /LPF None Seen 02/16 STOOL /LPF /2015 [facility] URINE AND UA Sq Epi Rare /LPF Few /LPF 02/16 STOOL [facility] URINE AND UA WBC 0-2 /HPF None Seen 02/16 STOOL /HPF /2015 [facility] URINE AND UA Leuk Est Negative Negative 02/16 STOOL /2015 [facility] (02/17/16 6:27 AM) URINE AND UA 0.2 EU/dL 0.1 - 1.0 02/16 STOOL Urobilinogen [facility] URINE AND UA Nitrite Negative Negative 02/16 STOOL [facility] (02/17/16 6:27 AM) URINE AND UA Spec Grav 1.025 <=1.030 02/16 STOOL [facility] URINE AND UA Turbidity Clear Clear 02/16 STOOL [facility] (02/17/16 6:27 AM) URINE AND UA Color Yellow Yellow 02/16 STOOL [facility] *NA* (02/17/16 6:27 AM) URINE AND UA Bili Negative Negative 02/16 STOOL [facility] *NA* (02/17/16 6:27 AM) URINE AND UA Blood Negative Negative 02/16 STOOL [facility] (02/17/16 6:27 AM) URINE AND UA Ketones Negative Negative 02/16 STOOL mg/dL mg/dL [facility] URINE AND UA Glucose Negative Negative 02/16 STOOL mg/dL mg/dL [facility] URINE AND UA pH 6.0 5.0 - 8.0 02/16 STOOL [facility] URINE AND UA Protein Negative Negative 02/16 STOOL mg/dL mg/dL [facility] CARDIAC CK-MB INDEX 1.6 0.0 - 2.5 02/16 ENZYMES [facility] CARDIAC CK MB 0.9 ng/mL 0.5 - 3.6 02/16 ENZYMES [facility] CARDIAC Total CK 58 unit/L 12 - 191 02/16 ENZYMES [facility] CHEM PANEL eGFR 93 02/16 Result Comment: [...] is not recommended in the following populations: [facility] 3m2 Individuals with unstable creatinine concentrations, including [...] 33 unit/L 0 - 65 02/16 AMINOTRANS [facility] RASE CHEM PANEL CO2 23 meq/L 24 - 32 02/16 [facility] CHEM PANEL Calcium Lvl 8.8 mg/dL 8.5 - 10.5 02/16 [facility] CHEM PANEL Potassium 4.0 meq/L 3.5 - 5.1 02/16 MH Lvl [facility] CHEM PANEL Chloride Lvl 105 meq/L 95 - 109 02/16 [facility] CHEM PANEL Creatinine 0.97 mg/dL 0.50 - 02/16 MH Lvl 1.40 [facility] CHEM PANEL Glucose Lvl 103 mg/dL 70 - 99 02/16 [facility] CHEM PANEL BUN 11 mg/dL 7 - 22 02/16 [facility] CHEM PANEL Albumin Lvl 3.4 g/dL 3.5 - 5.0 02/16 [facility] CHEM PANEL Alk Phos 128 unit/L 39 - 136 02/16 [facility] CHEM PANEL Bili Total 0.5 mg/dL 0.2 - 1.3 02/16 [facility] CHEM PANEL Sodium Lvl 139 meq/L 135 - 145 02/16 [facility] CHEM PANEL AGAP 15.0 meq/L 10.0 - 02/16 MH 20.0 [facility] CHEM PANEL B/C Ratio 11 6 - 25 02/16 [facility] CHEM PANEL Total 8.0 g/dL 6.4 - 8.4 02/16 [facility] CHEM PANEL ASPARTATE 16 unit/L 0 - 37 02/16 [facility] CHEM PANEL Globulin 4.6 g/dL 2.7 - 4.2 02/16 [facility] CHEM PANEL A/G Ratio 0.7 0.7 - 1.6 02/16 [facility] HEMATOLOGY Microcyte 1+ None Seen 02/16 [facility] *ABN* (02/17/16 5:50 AM) HEMATOLOGY Basophils # 0.1 K/CMM 0.0 - 0.2 02/16 [facility] HEMATOLOGY Basophils 0.5 % 0.0 - 1.0 02/16 [facility] Lymphocytes 2.4 K/CMM 1.0 - 5.5 02/16 [facility] # /2015 [facility] Monocytes # 0.8 K/CMM 0.0 - 0.8 02/16 [facility] Eosinophils 0.1 K/CMM 0.0 - 0.5 02/16 [facility] # /2015 [facility] Segs-Bands # 8.7 K/CMM 1.5 - 8.1 02/16 [facility] Eosinophils 1.2 % 0.0 - 4.0 02/16 [facility] Segs 72.1 % 45.0 - 02/16 [facility] 75.0 [facility] Lymphocytes 19.8 % 20.0 - 02/16 [facility] 40.0 [facility] Monocytes 6.4 % 2.0 - 12.0 02/16 [facility] Platelet 327 K/CMM 133 - 450 02/16 [facility] MCH 24.1 pg 27.0 - 02/16 31.0 [facility] MCHC 33.3 g/dL 32.0 - 02/16 36.0 [facility] MPV 7.6 fL 7.4 - 10.4 02/16 [facility] RDW 16.3 % 11.5 - 02/16 14.5 [facility] Hgb 13.1 g/dL 14.0 - 02/16 18.0 [facility] Hct 39.5 % 42.0 - 02/16 54.0 [facility] WBC X 10x3 12.0 K/CMM 3.7 - 10.4 02/16 [facility] RBC X 10x6 5.45 M/CMM 4.70 - 02/16 [facility] 6.10 [facility] MCV 72.6 fL 80.0 - 02/16 94.0 [facility] Renal Stone Patient Name: ANNABEL MCCONNELL 02/16 - [facility] [place] : 1970; Age: 45 years Male MR: [id number] Read by: Sundar Jeffrey MD Dictated Date/time: 02/17/16 05:53 Electronically Signed by: Sundar Jeffrey MD 02/17/16 06:01 FINAL REPORT Study: Renal Stone CT 02/17/2016 5:26 AM CDT Clinical Indication: Flank Pain. TN. STATED RT. FLANK PAIN AND UPPER CHEST [...] small left renal cyst. 7. Cardiomegaly. SL: [id number] Chest 1view Chest 1view Patient Name: ANNABEL MCCONNELL 02/16 [facility] DX [place] : 1970; Age: 45 years y/o Male MR: [id number] Read by: Jaun Guillermo MD Dictated Date/time: [...] Source Respitory Rate 18 05/17/2016 [facility] Temperature Oral (F) 98.1 F 05/17/2016 [facility] Heart Rate 72 05/17/2016 [facility] Systolic (mm Hg) 116 05/17/2016 [facility] Diastolic (mm Hg) 76 05/17/2016 [facility] Weight 128.636 05/17/2016 [facility] Temperature Oral (F) 97.6 F 05/17/2016 [facility] Respitory Rate 16 05/17/2016 [facility] Heart Rate 79 05/17/2016 [facility] Systolic (mm Hg) 100 05/17/2016 [facility] Diastolic (mm Hg) 69 05/17/2016 [facility] Respitory Rate 16 05/06/2016 [facility] Systolic (mm Hg) 134 05/06/2016 [facility] Diastolic (mm Hg) 84 05/06/2016 [facility] Heart Rate 61 05/06/2016 [facility] Temperature Oral (F) 97.9 F 05/06/2016 [facility] Respitory Rate 14 05/06/2016 [facility] Temperature Oral (F) 97.4 F 05/06/2016 [facility] Systolic (mm Hg) 117 05/06/2016 [facility] Diastolic (mm Hg) 77 05/06/2016 [facility] Respitory Rate 18 05/06/2016 [facility] Heart Rate 56 05/06/2016 [facility] Systolic (mm Hg) 120 05/06/2016 [facility] Diastolic (mm Hg) 77 05/06/2016 [facility] Heart Rate 62 05/06/2016 [facility] Temperature Oral (F) 97.9 F 05/06/2016 [facility] Weight 131.7 05/06/2016 [facility] BMI Calculated 41.66 05/06/2016 [facility] Height 177.8 cm 05/06/2016 [facility] Weight 127.273 05/05/2016 [facility] Systolic (mm Hg) 118 04/26/2016 [facility] Diastolic (mm Hg) 64 04/26/2016 [facility] Respitory Rate 18 04/26/2016 [facility] Heart Rate 78 04/26/2016 [facility] Temperature Oral (F) 97.4 F 04/26/2016 [facility] Weight 128.182 04/25/2016 [facility] BMI Calculated 40.55 04/25/2016 [facility] Height 177.8 cm 04/25/2016 [facility] Respitory Rate 18 04/25/2016 [facility] Temperature Oral (F) 97.2 F 04/25/2016 [facility] Heart Rate 80 04/25/2016 [facility] Systolic (mm Hg) 137 04/25/2016 [facility] Diastolic (mm Hg) 85 04/25/2016 [facility] Temperature Oral (F) 98.7 F 03/05/2016 [facility] Respitory Rate 16 03/05/2016 [facility] Systolic (mm Hg) 127 03/05/2016 [facility] Diastolic (mm Hg) 68 03/05/2016 [facility] Respitory Rate 16 03/05/2016 [facility] Systolic (mm Hg) 124 03/05/2016 [facility] Diastolic (mm Hg) 76 03/05/2016 [facility] Systolic (mm Hg) 127 03/05/2016 [facility] Diastolic (mm Hg) 77 03/05/2016 [facility] Height 177.8 cm 03/05/2016 [facility] BMI Calculated 40.83 03/05/2016 [facility] Weight 129.091 03/05/2016 [facility] Heart Rate 62 03/05/2016 [facility] Temperature Oral (F) 98.9 F 03/05/2016 [facility] Respitory Rate 18 03/05/2016 [facility] Temperature Oral (F) 98.2 F 03/02/2016 [facility] Heart Rate 58 03/02/2016 [facility] Respitory Rate 16 03/02/2016 [facility] Systolic (mm Hg) 120 03/02/2016 [facility] Diastolic (mm Hg) 66 03/02/2016 [facility] Heart Rate 50 03/02/2016 [facility] Weight 128.636 03/02/2016 [facility] Temperature Oral (F) 98.0 F 03/02/2016 [facility] Respitory Rate 18 03/02/2016 [facility] Systolic (mm Hg) 149 03/02/2016 [facility] Diastolic (mm Hg) 87 03/02/2016 [facility] Heart Rate 69 03/02/2016 [facility] Systolic (mm Hg) 107 02/20/2016 [facility] Diastolic (mm Hg) 66 02/20/2016 [facility] Temperature Oral (F) 98.0 F 02/20/2016 [facility] Respitory Rate 17 02/20/2016 [facility] Heart Rate 81 02/20/2016 [facility] Heart Rate 73 02/19/2016 [facility] Respitory Rate 17 02/19/2016 [facility] Temperature Oral (F) 97.8 F 02/19/2016 [facility] Systolic (mm Hg) 96 02/19/2016 [facility] Diastolic (mm Hg) 63 02/19/2016 [facility] Systolic (mm Hg) 128 02/19/2016 [facility] Diastolic (mm Hg) 84 02/19/2016 [facility] Heart Rate 82 02/19/2016 [facility] Temperature Oral (F) 97.9 F 02/19/2016 [facility] Respitory Rate 17 02/19/2016 [facility] Height 177.8 cm 02/17/2016 [facility] BMI Calculated 40.98 02/17/2016 [facility] Weight 129.545 02/17/2016 [facility] Weight 129.545 02/17/2016 [facility] BMI Calculated 40.98 02/17/2016 [facility] Height 177.8 cm 02/17/2016 [facility] Encounters Location Location Encounter Encounter Reason Attending ADM DC Status Source Details Type Number For Provider Date Date Visit [facility] [id number] Osmar 02/16 02/19 [facility] Roberts /2015 [facility] [place] [facility] [id number] Fei 03/02 03/02 Freddy Partida /2015 [facility] [place] [facility] [id number] Rachel Platt 03/05 03/05 Freddy /2015 [facility] [place] [facility] [id number] Agustin 04/25 04/26 Freddy Lopez /2015 [facility] [place] [facility] [id number] Geronimo 05/05 05/07 Freddy Dupont /2015 [facility] [place] [facility] [id number] Karey 05/17 05/18 Freddy Zuleta /2015 [facility] [place] Procedures Procedure Code Date Perfomer Comments Source Catheterization of [id number] [facility] right heart Lithotripsy [id number] [facility] Placement of stent in [id number] R RCA 100% [facility] cardiac blockage conduit<sup>1</sup>
--- OUTSIDE RECORDS SUMMARY | 2018-08-10 14:43 | XMS REPORT ---
:1970 Author Organization [facility] Address [address] [place] [address] Care Team Providers Name Role Phone Unavailable Unavailable Unavailable Payers Payer Name Policy Type Policy Number Effective Date Expiration Date Problems This patient has no known problems. Allergies, Adverse Reactions, Alerts Allergy Name Allergy Status Severity Reaction(s) Onset Inactive Treating Comments Type Date Date Clinician gabapentin DA Active U 2018-06 00:00:0 0 tramadol DA Active MO 2014-08 00:00:0 0 butorphanol DA Active MO 2014-08 00:00:0 0 tamsulosin DA Active MO 2014-08 00:00:0 0 Medications This patient has no known medications. Results Test Description Test Time Test Comments Text Results Atomic Results Result Comments LUPUS ANTICOAGULANT PANEL 2018-07-24 12:28:00 Test Item Value Reference Range Comments PROTHROMBIN TIME PATIENT (test 17.8 SECONDS 9.3-12.9 code=PTP) INTERNATIONAL NORMAL RATIO 1.6 0.8-1.2 TARGET INR BY (test code=INR) INDICATION Indication INR1. Prophylaxis of venous thrombosis 2.0 - 3.0 (orthopedic surgery), Prophylaxis of venous thrombosis (other than high-risk surgery), Treatment of Deep Vein Thrombosis/Pulmonary Embolism, Prevention of systemic embolism - Tissue heart valves, Acute Myocardial Infarction (to prevent systemic embolism), Valvular heart disease, Atrial Fibrillation, Bileaflet mechanical valve in aortic position.2. Mechanical prosthetic valves (high risk), 2.5 - 3.5 Presence of Lupus Anticoagulant or Antiphospholipid Antibodies, Prevention of systemic embolism - Acute Myocardial Infarction (to prevent recurrent infarct). THROMBOPLASTIN TIME PARTIAL 42.6 Seconds 25.0-39.5 Therapeutic Range: 61.8-83.8 (test code=PTT) Sec Effective 07/21/2013 RVVT PATIENT (test 1.5 RATIO 0.0-1.2 code=RVVTPAT) SILICA CLOTTING TIME (test 1.05 <=1.17 A Lupus Anticoagulant is NOT code=SILCLOT) DETECTED. This interpretationis based on the test results. Prolonged screening tests and negative confirmatory testsmay be caused by factor deficiencies or anticoagulanttherapy. Patient is on warfarin and enoxaparin.Previously reported result: 1.05 Edited by: INFCE on 07/06/18:[id number] 1510: SILICA CLOTTING previously reported as: 1.05 ARTERIAL THROMBOPHILIA [id number] 12:28:00 Test Item Value Reference Range Comments PROTHROMBIN 3 NO MUTATION () PROTHROMBIN (FACTOR II) 76273N>A UNTRANSLATED (test DETECTED MUTATION INTERPRETATION:This code=EM4FWNG) individual is negative (normal) for the S64493Fnkonvpks in the Prothrombin/Factor II gene. Increased riskof thrombophilia can be caused by a variety of genetic andnon-genetic factors not screened for this assay. Laboratory testing supervised and results monitored byTarah Segura, Ph.D., [facility], [facility], [facility]. MUTATION ANALYSIS:The F14397V mutation [GC882981.1:g.65784A>A (c.*97G>A)] inthe Prothrombin/Factor II gene is the second most commoninherited risk factor for thrombosis occuring inapproximately 2% of Caucasians. Presence of the mutation isassociated with an elevation of prothrombin levels to about30% above normal in heterozygotes and 70% above normal inhomozygotes. The F03712V mutation is detected bypolymerase chain reaction (PCR) and flourescent probehybridization to the targeted region, followed by meltingcurve analysis with a real time PCR system. Although rare,false positive or false negative results may occur. Allresults should be interpreted in the context of clinicalfindings, relevant history, and other laboratory data. This test was developed and its analytical performancecharacteristics have been determined by [facility]. It has not beencleared or approved by the FDA. This assay has beenvalidated pursuant to the CLIA regulations and is used forclinical purposes. Health care providers, please contact your local [facility] genetic counselor or call [phone]) for assistance with interpretation of theseresults. Performed by: [facility] [address] ACTIVATED PROT C 3.09 RATIO 2.31-5.00 Ratios > or=to 2.31 are RESISTANCE (test considered negative for the code=APC) FactorV Leiden. FACTOR V MUTATION NO MUTATION () FACTOR V (LEIDEN) MUTATION (LEIDEN) (test DETECTED INTERPRETATION:This individual is code=FAC5M) negative (normal) for the Factor V Leiden(R506Q) in the Factor V gene. Increased risk ofthrombophilia can be caused by a variety of genetic andnon-genetic factors not screened for this assay. Laboratory testing supervised and results monitored byBjorn Cardoza, Ph.D., [facility], [facility]. MUTATION ANALYSIS:The Factor v Leiden (R560Q) mutation [NM 008341.2: c.1601G>A(p.R534Q)] in the Factor V gene is one of the most commoncauses of inherited thrombophilia. This mutation causesresistance to degradation of the activated protein C (APC).The Factor V Leiden (R506Q) mutation is detected bypolymerase chain reaction (PCR) and flourescent probehybridization to the targeted region, followed by meltingcurve analysis with a real time PCR system. Although rare,false positive or false negative results may occur. Allresults should be interpreted in the context of clinicalfindings, relevant history, and other laboratory data. This test was developed and its analytical performancecharacteristics have been determined by [facility]. It has not beencleared or approved by the FDA. This assay has beenvalidated pursuant to the CLIA regulations and is used forclinical purposes. Health care providers, please contact your local [facility] genetic counselor or call [phone]) for assistance with interpretation of theseresults. Performed by: [facility] [place] [address] PROTEIN S FREE (test 56 % 68-126 Protein S deficiency may be code=PROTSFR) acquired due to recentthrombosis, oral anticoagulant therapy, , oralcontraceptives or hormone replacement therapy, liverdysfunction, recent surgery, DIC, and vitamin K deficiency.Hereditary deficiency of Protein S show decreased levels butare rare. Elevated Protein S levels are not clinicallysignificant. Only decreased levels are associated with anincreased thrombotic risk. MONY IGG (test 0.2 GPL <=15 code=ACAG) MONY IGA (test 0.5 APL <=12 code=ACAA) MONY IGM (test 3.5 MPL <=12.5 The Antiphospholipid Syndrome code=ACAM) (APS) is a clinical pathologiccondition that includes a clinical event (vascularthrombosis, mortality, thrombocytopenia, etc.) andpersistent positivity of antiphospholipid antibodies (IgG orIgM MONY>40 GPL/MPL, IgG or IgM anti-B2GPI antibodies, or thepresence of a Lupus Anticoagulant). The InternationalConsensus guidelines suggest that these isotypes must bepresent on two or more occasions and at least 12 weeks apartto confirm antibody persistence. Although the IgA isotypehas been implicated in thrombotic events, these isotypeshave not yet been included into the APS criteria. NHCP-9-EWHOT I IGM 0.8 SMU 0.0-20.0 (test code=GPIIGM) QQJV-8-OFWMW I IGG 0.0 SGU 0.0-20.0 (test code=GPIIGG) VDFA-5-UKCBH I IGA 0.5 AHMET 0.0-20.0 The Antiphospholipid Syndrome (test code=GPIIGA) (APS) is a clinical pathologiccondition that includes a clinical event (vascularthrombosis, mortality, thrombocytopenia, etc.) andpersistent positivity of antiphospholipid antibodies (IgG orIgM MONY>40 GPL/MPL, IgG or IgM anti-B2GPI antibodies, or thepresence of a Lupus Anticoagulant). The InternationalConsensus guidelines suggest that these isotypes must bepresent on two or more occasions and at least 12 weeks apartto confirm antibody persistence. Although the IgA isotypehas been implicated in thrombotic events, these isotypeshave not yet been included into the APS criteria. HOMOCYSTEINE (test TEST NOT 3.2-10.7 code=HOMOCY) PERFORMED umol/L HIGH SENSITIVITY CRP 2.347 mg/dl 0.000-0.747 (test code=CRPHS) [id number] 12:28:00 Test Item Value Reference Range Comments FIBRINOGEN (test code=FIB) 640 MG/DL 160-450 Excess administration of anticoagulants and/or FibrinDegradation Products may affect Fibrinogen value. FACTOR [id number] 12:28:00 Test Item Value Reference Range Comments FACTOR VII (test code=FAC7) 57 % 60-140 ANTITHROMBIN III (ATIII)2018-07-24 12:28:00 Test Item Value Reference Range Comments ANTITHROMBIN III (ATIII) (test 77 % 83-128 Acquired antithrombin code=AT3) deficiency may occur with renalfailure associated with proteinuria nephrotic syndrome,liver failure or cirrhosis or an immature liver secondary topremature , accelerated consumption due to severeinjury, DIC, or recent thrombosis, and heparin therapy.Hereditary deficiency of Protein S show decreased levels butare rare. Elevated Antithrombin levels are not clinicallysignificant. PROTEIN C [id number] 12:28:00 Test Item Value Reference Range Comments PROTEIN C FUNCTIONAL (test 56 % 70-140 Protein C deficiency may be acquired code=PROTCFN) due to recentthrombosis, oral anticoagulant therapy, hepatic disorders,post-surgery, DIC, and vitamin K deficiency. Hereditarydeficiency show decreased levels but are rare. ElevatedProtein C levels are not clinically significant. Only decreased levels are associated with increased thromboticrisk. However, oral anti-Xa or anti-thrombin medications maycause falsely increased levels of Protein C. PROTEIN C [id number] 12:28:00 Test Item Value Reference Range Comments PROTEIN C ANTIGENIC (test 71 % 70-140 Decreased levels of Protein C code=PROTCAG) Antigen may be found incongenital deficiency, treatment with oral anticoagulants,liver disease, D.I.C. and post surgery. Performed by: [facility] [address] PROTEIN S [id number] 12:28:00 Test Item Value Reference Range Comments PROTEIN S TOTAL (test 68 % 70-140 Performed by: [facility] code=PROTSTOT) Diagnostics/[facility] [place] [address] PROTEIN S FUNC (test 70 % 74-148 Protein S deficiency may be acquired code=PROTSFN) due to recentthrombosis, oral anticoagulant therapy, , oralcontraceptives or hormone replacement therapy, liverdysfunction, recent surgery, DIC, and vitamin K deficiency.Hereditary deficiency of Protein S show decreased levels butare rare. Elevated Protein S levels are not clinicallysignificant. Only decreased levels are associated with anincreased thrombotic risk. MTHF REDUCTASE (PCR) [id number] 12:28:00 Test Item Value Reference Range Comments MTHF REDUCTASE (PCR) 677 (test code=MTHFR TEST NOT PERFORMED 677) LUPUS ANTICOAGULANT [id number] 11:48:00 Test Item Value Reference Range Comments PROTHROMBIN TIME PATIENT 17.8 SECONDS 9.3-12.9 (test code=PTP) INTERNATIONAL NORMAL RATIO 1.6 0.8-1.2 TARGET INR BY (test code=INR) INDICATION Indication INR1. Prophylaxis of venous thrombosis 2.0 - 3.0 (orthopedic surgery), Prophylaxis of venous thrombosis (other than high-risk surgery), Treatment of Deep Vein Thrombosis/Pulmonary Embolism, Prevention of systemic embolism - Tissue heart valves, Acute Myocardial Infarction (to prevent systemic embolism), Valvular heart disease, Atrial Fibrillation, Bileaflet mechanical valve in aortic position.2. Mechanical prosthetic valves (high risk), 2.5 - 3.5 Presence of Lupus Anticoagulant or Antiphospholipid Antibodies, Prevention of systemic embolism - Acute Myocardial Infarction (to prevent recurrent infarct). THROMBOPLASTIN TIME PARTIAL 42.6 Seconds 25.0-39.5 Therapeutic Range: (test code=PTT) 61.8-83.8 Sec Effective 07/21/2013 RVVT PATIENT (test 1.5 RATIO 0.0-1.2 code=RVVTPAT) SILICA CLOTTING TIME (test 1.05 <=1.17 A Lupus Anticoagulant is NOT code=SILCLOT) DETECTED. This interpretationis based on the test results. Prolonged screening tests and negative confirmatory testsmay be caused by factor deficiencies or anticoagulanttherapy. Patient is on warfarin and enoxaparin.Previously reported result: 1.05 Edited by: SMITA on 07/06/18:[id number] 1510: SILICA CLOTTING previously reported as: 1.05 ARTERIAL THROMBOPHILIA [id number] 11:48:00 Test Item Value Reference Range Comments PROTHROMBIN 3 NO MUTATION () PROTHROMBIN (FACTOR II) [id number]>A UNTRANSLATED (test DETECTED MUTATION INTERPRETATION:This code=KV4IRLJ) individual is negative (normal) for the L90139Nhwgqwmvu in the Prothrombin/Factor II gene. Increased riskof thrombophilia can be caused by a variety of genetic andnon-genetic factors not screened for this assay. Laboratory testing supervised and results monitored byTarah Segura, Ph.D., [facility], [facility], [facility]. MUTATION ANALYSIS:The B70859D mutation [IQ809537.1:g.27218Q>A (c.*97G>A)] inthe Prothrombin/Factor II gene is the second most commoninherited risk factor for thrombosis occuring inapproximately 2% of Caucasians. Presence of the mutation isassociated with an elevation of prothrombin levels to about30% above normal in heterozygotes and 70% above normal inhomozygotes. The E83440G mutation is detected bypolymerase chain reaction (PCR) and flourescent probehybridization to the targeted region, followed by meltingcurve analysis with a real time PCR system. Although rare,false positive or false negative results may occur. Allresults should be interpreted in the context of clinicalfindings, relevant history, and other laboratory data. This test was developed and its analytical performancecharacteristics have been determined by [facility]. It has not beencleared or approved by the FDA. This assay has beenvalidated pursuant to the CLIA regulations and is used forclinical purposes. Health care providers, please contact your local [employer]' genetic counselor or call [phone]) for assistance with interpretation of theseresults. Performed by: [facility] [address] ACTIVATED PROT C 3.09 RATIO 2.31-5.00 Ratios > or=to 2.31 are RESISTANCE (test considered negative for the code=APC) FactorV Leiden. FACTOR V MUTATION NO MUTATION () FACTOR V (LEIDEN) MUTATION (LEIDEN) (test DETECTED INTERPRETATION:This individual is code=FAC5M) negative (normal) for the Factor V Leiden(R506Q) in the Factor V gene. Increased risk ofthrombophilia can be caused by a variety of genetic andnon-genetic factors not screened for this assay. Laboratory testing supervised and results monitored byBjorn Cardoza, Ph.D., [facility], [facility]. MUTATION ANALYSIS:The Factor v Leiden (R560Q) mutation [NM 376740.2: c.1601G>A(p.R534Q)] in the Factor V gene is one of the most commoncauses of inherited thrombophilia. This mutation causesresistance to degradation of the activated protein C (APC).The Factor V Leiden (R506Q) mutation is detected bypolymerase chain reaction (PCR) and flourescent probehybridization to the targeted region, followed by meltingcurve analysis with a real time PCR system. Although rare,false positive or false negative results may occur. Allresults should be interpreted in the context of clinicalfindings, relevant history, and other laboratory data. This test was developed and its analytical performancecharacteristics have been determined by [facility]. It has not beencleared or approved by the FDA. This assay has beenvalidated pursuant to the CLIA regulations and is used forclinical purposes. Health care providers, please contact your local eEvent' genetic counselor or call [phone]) for assistance with interpretation of theseresults. Performed by: [facility] [address] PROTEIN S FREE (test 56 % 68-126 Protein S deficiency may be code=PROTSFR) acquired due to recentthrombosis, oral anticoagulant therapy, , oralcontraceptives or hormone replacement therapy, liverdysfunction, recent surgery, DIC, and vitamin K deficiency.Hereditary deficiency of Protein S show decreased levels butare rare. Elevated Protein S levels are not clinicallysignificant. Only decreased levels are associated with anincreased thrombotic risk. MONY IGG (test 0.2 GPL <=15 code=ACAG) MONY IGA (test 0.5 APL <=12 code=ACAA) OMNY IGM (test 3.5 MPL <=12.5 The Antiphospholipid Syndrome code=ACAM) (APS) is a clinical pathologiccondition that includes a clinical event (vascularthrombosis, mortality, thrombocytopenia, etc.) andpersistent positivity of antiphospholipid antibodies (IgG orIgM MONY>40 GPL/MPL, IgG or IgM anti-B2GPI antibodies, or thepresence of a Lupus Anticoagulant). The InternationalConsensus guidelines suggest that these isotypes must bepresent on two or more occasions and at least 12 weeks apartto confirm antibody persistence. Although the IgA isotypehas been implicated in thrombotic events, these isotypeshave not yet been included into the APS criteria. NXDA-3-KSIUU I IGM 0.8 SMU 0.0-20.0 (test code=GPIIGM) XFVU-5-WMEPR I IGG 0.0 SGU 0.0-20.0 (test code=GPIIGG) YPTU-1-TIANS I IGA 0.5 AHMET 0.0-20.0 The Antiphospholipid Syndrome (test code=GPIIGA) (APS) is a clinical pathologiccondition that includes a clinical event (vascularthrombosis, mortality, thrombocytopenia, etc.) andpersistent positivity of antiphospholipid antibodies (IgG orIgM MONY>40 GPL/MPL, IgG or IgM anti-B2GPI antibodies, or thepresence of a Lupus Anticoagulant). The InternationalConsensus guidelines suggest that these isotypes must bepresent on two or more occasions and at least 12 weeks apartto confirm antibody persistence. Although the IgA isotypehas been implicated in thrombotic events, these isotypeshave not yet been included into the APS criteria. HOMOCYSTEINE (test TEST NOT 3.2-10.7 code=HOMOCY) PERFORMED umol/L HIGH SENSITIVITY CRP 2.347 mg/dl 0.000-0.747 (test code=CRPHS) [id number] 11:48:00 Test Item Value Reference Range Comments FIBRINOGEN (test code=FIB) 640 MG/DL 160-450 Excess administration of anticoagulants and/or FibrinDegradation Products may affect Fibrinogen value. FACTOR [id number] 11:48:00 Test Item Value Reference Range Comments FACTOR VII (test code=FAC7) 57 % 60-140 ANTITHROMBIN III (ATIII)2018-07-10 11:48:00 Test Item Value Reference Range Comments ANTITHROMBIN III (ATIII) (test 77 % 83-128 Acquired antithrombin code=AT3) deficiency may occur with renalfailure associated with proteinuria nephrotic syndrome,liver failure or cirrhosis or an immature liver secondary topremature , accelerated consumption due to severeinjury, DIC, or recent thrombosis, and heparin therapy.Hereditary deficiency of Protein S show decreased levels butare rare. Elevated Antithrombin levels are not clinicallysignificant. PROTEIN C [id number] 11:48:00 Test Item Value Reference Range Comments PROTEIN C FUNCTIONAL (test 56 % 70-140 Protein C deficiency may be acquired code=PROTCFN) due to recentthrombosis, oral anticoagulant therapy, hepatic disorders,post-surgery, DIC, and vitamin K deficiency. Hereditarydeficiency show decreased levels but are rare. ElevatedProtein C levels are not clinically significant. Only decreased levels are associated with increased thromboticrisk. However, oral anti-Xa or anti-thrombin medications maycause falsely increased levels of Protein C. PROTEIN C [id number] 11:48:00 Test Item Value Reference Range Comments PROTEIN C ANTIGENIC (test 71 % 70-140 Decreased levels of Protein C code=PROTCAG) Antigen may be found incongenital deficiency, treatment with oral anticoagulants,liver disease, D.I.C. and post surgery. Performed by: [facility] [address] PROTEIN S [id number] 11:48:00 Test Item Value Reference Range Comments PROTEIN S TOTAL (test 68 % 70-140 Performed by: [facility] code=PROTSTOT) Diagnostics/[place] [address] PROTEIN S FUNC (test 70 % 74-148 Protein S deficiency may be acquired code=PROTSFN) due to recentthrombosis, oral anticoagulant therapy, , oralcontraceptives or hormone replacement therapy, liverdysfunction, recent surgery, DIC, and vitamin K deficiency.Hereditary deficiency of Protein S show decreased levels butare rare. Elevated Protein S levels are not clinicallysignificant. Only decreased levels are associated with anincreased thrombotic risk. MTHF REDUCTASE (PCR) [id number] 11:48:00 Test Item Value Reference Range Comments MTHF REDUCTASE (PCR) 677 (test code=MTHFR 677) LUPUS ANTICOAGULANT [id number] 11:04:00 Test Item Value Reference Range Comments PROTHROMBIN TIME PATIENT 17.8 SECONDS 9.3-12.9 (test code=PTP) INTERNATIONAL NORMAL RATIO 1.6 0.8-1.2 TARGET INR BY (test code=INR) INDICATION Indication INR1. Prophylaxis of venous thrombosis 2.0 - 3.0 (orthopedic surgery), Prophylaxis of venous thrombosis (other than high-risk surgery), Treatment of Deep Vein Thrombosis/Pulmonary Embolism, Prevention of systemic embolism - Tissue heart valves, Acute Myocardial Infarction (to prevent systemic embolism), Valvular heart disease, Atrial Fibrillation, Bileaflet mechanical valve in aortic position.2. Mechanical prosthetic valves (high risk), 2.5 - 3.5 Presence of Lupus Anticoagulant or Antiphospholipid Antibodies, Prevention of systemic embolism - Acute Myocardial Infarction (to prevent recurrent infarct). THROMBOPLASTIN TIME PARTIAL 42.6 Seconds 25.0-39.5 Therapeutic Range: (test code=PTT) 61.8-83.8 Sec Effective 07/21/2013 RVVT PATIENT (test 1.5 RATIO 0.0-1.2 code=RVVTPAT) SILICA CLOTTING TIME (test 1.05 <=1.17 A Lupus Anticoagulant is NOT code=SILCLOT) DETECTED. This interpretationis based on the test results. Prolonged screening tests and negative confirmatory testsmay be caused by factor deficiencies or anticoagulanttherapy. Patient is on warfarin and enoxaparin.Previously reported result: 1.05 Edited by: SMITA on 07/06/18:[id number] 1510: SILICA CLOTTING previously reported as: 1.05 ARTERIAL THROMBOPHILIA [id number] 11:04:00 Test Item Value Reference Range Comments PROTHROMBIN 3 NO MUTATION () PROTHROMBIN (FACTOR II) 65043I>A UNTRANSLATED (test DETECTED MUTATION INTERPRETATION:This code=JH7VKQE) individual is negative (normal) for the G68272Tmxmxahtd in the Prothrombin/Factor II gene. Increased riskof thrombophilia can be caused by a variety of genetic andnon-genetic factors not screened for this assay. Laboratory testing supervised and results monitored Peg Segura, Ph.D., [facility], [facility], [facility]. MUTATION ANALYSIS:The N08410K mutation [WQ912028.1:g.72862J>A (c.*97G>A)] inthe Prothrombin/Factor II gene is the second most commoninherited risk factor for thrombosis occuring inapproximately 2% of Caucasians. Presence of the mutation isassociated with an elevation of prothrombin levels to about30% above normal in heterozygotes and 70% above normal inhomozygotes. The A37975I mutation is detected bypolymerase chain reaction (PCR) and flourescent probehybridization to the targeted region, followed by meltingcurve analysis with a real time PCR system. Although rare,false positive or false negative results may occur. Allresults should be interpreted in the context of clinicalfindings, relevant history, and other laboratory data. This test was developed and its analytical performancecharacteristics have been determined by [facility]. It has not beencleared or approved by the FDA. This assay has beenvalidated pursuant to the CLIA regulations and is used forclinical purposes. Health care providers, please contact your local eEvent' genetic counselor or call [phone]) for assistance with interpretation of theseresults. Performed by: [facility] [address] ACTIVATED PROT C 3.09 RATIO 2.31-5.00 Ratios > or=to 2.31 are RESISTANCE (test considered negative for the code=APC) FactorV Leiden. FACTOR V MUTATION NO MUTATION () FACTOR V (LEIDEN) MUTATION (LEIDEN) (test DETECTED INTERPRETATION:This individual is code=FAC5M) negative (normal) for the Factor V Leiden(R506Q) in the Factor V gene. Increased risk ofthrombophilia can be caused by a variety of genetic andnon-genetic factors not screened for this assay. Laboratory testing supervised and results monitored byBjorn Cardoza, Ph.D., [facility], [facility]. MUTATION ANALYSIS:The Factor v Leiden (R560Q) mutation [NM 309850.2: c.1601G>A(p.R534Q)] in the Factor V gene is one of the most commoncauses of inherited thrombophilia. This mutation causesresistance to degradation of the activated protein C (APC).The Factor V Leiden (R506Q) mutation is detected bypolymerase chain reaction (PCR) and flourescent probehybridization to the targeted region, followed by meltingcurve analysis with a real time PCR system. Although rare,false positive or false negative results may occur. Allresults should be interpreted in the context of clinicalfindings, relevant history, and other laboratory data. This test was developed and its analytical performancecharacteristics have been determined by [facility]. It has not beencleared or approved by the FDA. This assay has beenvalidated pursuant to the CLIA regulations and is used forclinical purposes. Health care providers, please contact your local eEvent' genetic counselor or call [phone]) for assistance with interpretation of theseresults. Performed by: [facility] [address] PROTEIN S FREE (test 56 % 68-126 Protein S deficiency may be code=PROTSFR) acquired due to recentthrombosis, oral anticoagulant therapy, , oralcontraceptives or hormone replacement therapy, liverdysfunction, recent surgery, DIC, and vitamin K deficiency.Hereditary deficiency of Protein S show decreased levels butare rare. Elevated Protein S levels are not clinicallysignificant. Only decreased levels are associated with anincreased thrombotic risk. MONY IGG (test 0.2 GPL <=15 code=ACAG) MONY IGA (test 0.5 APL <=12 code=ACAA) MONY IGM (test 3.5 MPL <=12.5 The Antiphospholipid Syndrome code=ACAM) (APS) is a clinical pathologiccondition that includes a clinical event (vascularthrombosis, mortality, thrombocytopenia, etc.) andpersistent positivity of antiphospholipid antibodies (IgG orIgM MONY>40 GPL/MPL, IgG or IgM anti-B2GPI antibodies, or thepresence of a Lupus Anticoagulant). The InternationalConsensus guidelines suggest that these isotypes must bepresent on two or more occasions and at least 12 weeks apartto confirm antibody persistence. Although the IgA isotypehas been implicated in thrombotic events, these isotypeshave not yet been included into the APS criteria. PSNJ-8-NQAGB I IGM SMU 0.0-20.0 (test code=GPIIGM) WVJI-9-BEEFB I IGG SGU 0.0-20.0 (test code=GPIIGG) PYBS-5-XOAXV I IGA 0.5 AHMET 0.0-20.0 The Antiphospholipid Syndrome (test code=GPIIGA) (APS) is a clinical pathologiccondition that includes a clinical event (vascularthrombosis, mortality, thrombocytopenia, etc.) andpersistent positivity of antiphospholipid antibodies (IgG orIgM MONY>40 GPL/MPL, IgG or IgM anti-B2GPI antibodies, or thepresence of a Lupus Anticoagulant). The InternationalConsensus guidelines suggest that these isotypes must bepresent on two or more occasions and at least 12 weeks apartto confirm antibody persistence. Although the IgA isotypehas been implicated in thrombotic events, these isotypeshave not yet been included into the APS criteria. HOMOCYSTEINE (test TEST NOT 3.2-10.7 code=HOMOCY) PERFORMED umol/L HIGH SENSITIVITY CRP mg/dl 0.000-0.747 (test code=CRPHS) [id number] 11:04:00 Test Item Value Reference Range Comments FIBRINOGEN (test code=FIB) 640 MG/DL 160-450 Excess administration of anticoagulants and/or FibrinDegradation Products may affect Fibrinogen value. FACTOR [id number] 11:04:00 Test Item Value Reference Range Comments FACTOR VII (test code=FAC7) 57 % 60-140 ANTITHROMBIN III (ATIII)2018-07-10 11:04:00 Test Item Value Reference Range Comments ANTITHROMBIN III (ATIII) (test 77 % 83-128 Acquired antithrombin code=AT3) deficiency may occur with renalfailure associated with proteinuria nephrotic syndrome,liver failure or cirrhosis or an immature liver secondary topremature , accelerated consumption due to severeinjury, DIC, or recent thrombosis, and heparin therapy.Hereditary deficiency of Protein S show decreased levels butare rare. Elevated Antithrombin levels are not clinicallysignificant. PROTEIN C [id number] 11:04:00 Test Item Value Reference Range Comments PROTEIN C FUNCTIONAL (test 56 % 70-140 Protein C deficiency may be acquired code=PROTCFN) due to recentthrombosis, oral anticoagulant therapy, hepatic disorders,post-surgery, DIC, and vitamin K deficiency. Hereditarydeficiency show decreased levels but are rare. ElevatedProtein C levels are not clinically significant. Only decreased levels are associated with increased thromboticrisk. However, oral anti-Xa or anti-thrombin medications maycause falsely increased levels of Protein C. PROTEIN C [id number] 11:04:00 Test Item Value Reference Range Comments PROTEIN C ANTIGENIC (test 71 % 70-140 Decreased levels of Protein C code=PROTCAG) Antigen may be found incongenital deficiency, treatment with oral anticoagulants,liver disease, D.I.C. and post surgery. Performed by: [facility] [address] PROTEIN S [id number] 11:04:00 Test Item Value Reference Range Comments PROTEIN S TOTAL (test 68 % 70-140 Performed by: [facility] code=PROTSTOT) [facility]/[place] [address] PROTEIN S FUNC (test 70 % 74-148 Protein S deficiency may be acquired code=PROTSFN) due to recentthrombosis, oral anticoagulant therapy, , oralcontraceptives or hormone replacement therapy, liverdysfunction, recent surgery, DIC, and vitamin K deficiency.Hereditary deficiency of Protein S show decreased levels butare rare. Elevated Protein S levels are not clinicallysignificant. Only decreased levels are associated with anincreased thrombotic risk. MTHF REDUCTASE (PCR) [id number] 11:04:00 Test Item Value Reference Range Comments MTHF REDUCTASE (PCR) 677 (test code=MTHFR 677) LUPUS ANTICOAGULANT [id number] 11:03:00 Test Item Value Reference Range Comments PROTHROMBIN TIME PATIENT 17.8 SECONDS 9.3-12.9 (test code=PTP) INTERNATIONAL NORMAL RATIO 1.6 0.8-1.2 TARGET INR BY (test code=INR) INDICATION Indication INR1. Prophylaxis of venous thrombosis 2.0 - 3.0 (orthopedic surgery), Prophylaxis of venous thrombosis (other than high-risk surgery), Treatment of Deep Vein Thrombosis/Pulmonary Embolism, Prevention of systemic embolism - Tissue heart valves, Acute Myocardial Infarction (to prevent systemic embolism), Valvular heart disease, Atrial Fibrillation, Bileaflet mechanical valve in aortic position.2. Mechanical prosthetic valves (high risk), 2.5 - 3.5 Presence of Lupus Anticoagulant or Antiphospholipid Antibodies, Prevention of systemic embolism - Acute Myocardial Infarction (to prevent recurrent infarct). THROMBOPLASTIN TIME PARTIAL 42.6 Seconds 25.0-39.5 Therapeutic Range: (test code=PTT) 61.8-83.8 Sec Effective 07/21/2013 RVVT PATIENT (test 1.5 RATIO 0.0-1.2 code=RVVTPAT) SILICA CLOTTING TIME (test 1.05 <=1.17 A Lupus Anticoagulant is NOT code=SILCLOT) DETECTED. This interpretationis based on the test results. Prolonged screening tests and negative confirmatory testsmay be caused by factor deficiencies or anticoagulanttherapy. Patient is on warfarin and enoxaparin.Previously reported result: 1.05 Edited by: SMITA on 07/06/18:[id number]/ 1510: SILICA CLOTTING previously reported as: 1.05 ARTERIAL THROMBOPHILIA [id number] 11:03:00 Test Item Value Reference Range Comments PROTHROMBIN 3 NO MUTATION () PROTHROMBIN (FACTOR II) 92181N>A UNTRANSLATED (test DETECTED MUTATION INTERPRETATION:This code=AT6SHXY) individual is negative (normal) for the D42080Lubvsahgi in the Prothrombin/Factor II gene. Increased riskof thrombophilia can be caused by a variety of genetic andnon-genetic factors not screened for this assay. Laboratory testing supervised and results monitored byTarah Segura, Ph.D., [facility], [facility], [facility]. MUTATION ANALYSIS:The T99410J mutation [SN340343.1:g.58107M>A (c.*97G>A)] inthe Prothrombin/Factor II gene is the second most commoninherited risk factor for thrombosis occuring inapproximately 2% of Caucasians. Presence of the mutation isassociated with an elevation of prothrombin levels to about30% above normal in heterozygotes and 70% above normal inhomozygotes. The R32185B mutation is detected bypolymerase chain reaction (PCR) and flourescent probehybridization to the targeted region, followed by meltingcurve analysis with a real time PCR system. Although rare,false positive or false negative results may occur. Allresults should be interpreted in the context of clinicalfindings, relevant history, and other laboratory data. This test was developed and its analytical performancecharacteristics have been determined by [facility]. It has not beencleared or approved by the FDA. This assay has beenvalidated pursuant to the CLIA regulations and is used forclinical purposes. Health care providers, please contact your local eEvent' genetic counselor or call [phone]) for assistance with interpretation of theseresults. Performed by: [facility]/[place] [address] ACTIVATED PROT C 3.09 RATIO 2.31-5.00 Ratios > or=to 2.31 are RESISTANCE (test considered negative for the code=APC) FactorV Leiden. FACTOR V MUTATION NO MUTATION () FACTOR V (LEIDEN) MUTATION (LEIDEN) (test DETECTED INTERPRETATION:This individual is code=FAC5M) negative (normal) for the Factor V Leiden(R506Q) in the Factor V gene. Increased risk ofthrombophilia can be caused by a variety of genetic andnon-genetic factors not screened for this assay. Laboratory testing supervised and results monitored byBjorn Cardoza, Ph.D., [facility], [facility]. MUTATION ANALYSIS:The Factor v Leiden (R560Q) mutation [NM 350256.2: c.1601G>A(p.R534Q)] in the Factor V gene is one of the most commoncauses of inherited thrombophilia. This mutation causesresistance to degradation of the activated protein C (APC).The Factor V Leiden (R506Q) mutation is detected bypolymerase chain reaction (PCR) and flourescent probehybridization to the targeted region, followed by meltingcurve analysis with a real time PCR system. Although rare,false positive or false negative results may occur. Allresults should be interpreted in the context of clinicalfindings, relevant history, and other laboratory data. This test was developed and its analytical performancecharacteristics have been determined by [facility]. It has not beencleared or approved by the FDA. This assay has beenvalidated pursuant to the CLIA regulations and is used forclinical purposes. Health care providers, please contact your local eEvent' genetic counselor or call [phone]) for assistance with interpretation of theseresults. Performed by: [facility] [place] [address] PROTEIN S FREE (test 56 % 68-126 Protein S deficiency may be code=PROTSFR) acquired due to recentthrombosis, oral anticoagulant therapy, , oralcontraceptives or hormone replacement therapy, liverdysfunction, recent surgery, DIC, and vitamin K deficiency.Hereditary deficiency of Protein S show decreased levels butare rare. Elevated Protein S levels are not clinicallysignificant. Only decreased levels are associated with anincreased thrombotic risk. MONY IGG (test 0.2 GPL <=15 code=ACAG) MONY IGA (test 0.5 APL <=12 code=ACAA) MONY IGM (test 3.5 MPL <=12.5 The Antiphospholipid Syndrome code=ACAM) (APS) is a clinical pathologiccondition that includes a clinical event (vascularthrombosis, mortality, thrombocytopenia, etc.) andpersistent positivity of antiphospholipid antibodies (IgG orIgM MONY>40 GPL/MPL, IgG or IgM anti-B2GPI antibodies, or thepresence of a Lupus Anticoagulant). The InternationalConsensus guidelines suggest that these isotypes must bepresent on two or more occasions and at least 12 weeks apartto confirm antibody persistence. Although the IgA isotypehas been implicated in thrombotic events, these isotypeshave not yet been included into the APS criteria. CEFY-6-ORVVR I IGM SMU 0.0-20.0 (test code=GPIIGM) CDNP-4-SRKON I IGG SGU 0.0-20.0 (test code=GPIIGG) AUZH-4-NLPBL I IGA 0.5 AHMET 0.0-20.0 The Antiphospholipid Syndrome (test code=GPIIGA) (APS) is a clinical pathologiccondition that includes a clinical event (vascularthrombosis, mortality, thrombocytopenia, etc.) andpersistent positivity of antiphospholipid antibodies (IgG orIgM MONY>40 GPL/MPL, IgG or IgM anti-B2GPI antibodies, or thepresence of a Lupus Anticoagulant). The InternationalConsensus guidelines suggest that these isotypes must bepresent on two or more occasions and at least 12 weeks apartto confirm antibody persistence. Although the IgA isotypehas been implicated in thrombotic events, these isotypeshave not yet been included into the APS criteria. HOMOCYSTEINE (test TEST NOT 3.2-10.7 code=HOMOCY) PERFORMED umol/L HIGH SENSITIVITY CRP mg/dl 0.000-0.747 (test code=CRPHS) [id number] 11:03:00 Test Item Value Reference Range Comments FIBRINOGEN (test code=FIB) 640 MG/DL 160-450 Excess administration of anticoagulants and/or FibrinDegradation Products may affect Fibrinogen value. FACTOR [id number] 11:03:00 Test Item Value Reference Range Comments FACTOR VII (test code=FAC7) 57 % 60-140 ANTITHROMBIN III (ATIII)2018-07-10 11:03:00 Test Item Value Reference Range Comments ANTITHROMBIN III (ATIII) (test 77 % 83-128 Acquired antithrombin code=AT3) deficiency may occur with renalfailure associated with proteinuria nephrotic syndrome,liver failure or cirrhosis or an immature liver secondary topremature , accelerated consumption due to severeinjury, DIC, or recent thrombosis, and heparin therapy.Hereditary deficiency of Protein S show decreased levels butare rare. Elevated Antithrombin levels are not clinicallysignificant. PROTEIN C [id number] 11:03:00 Test Item Value Reference Range Comments PROTEIN C FUNCTIONAL (test 56 % 70-140 Protein C deficiency may be acquired code=PROTCFN) due to recentthrombosis, oral anticoagulant therapy, hepatic disorders,post-surgery, DIC, and vitamin K deficiency. Hereditarydeficiency show decreased levels but are rare. ElevatedProtein C levels are not clinically significant. Only decreased levels are associated with increased thromboticrisk. However, oral anti-Xa or anti-thrombin medications maycause falsely increased levels of Protein C. PROTEIN C [id number] 11:03:00 Test Item Value Reference Range Comments PROTEIN C ANTIGENIC (test 71 % 70-140 Decreased levels of Protein C code=PROTCAG) Antigen may be found incongenital deficiency, treatment with oral anticoagulants,liver disease, D.I.C. and post surgery. Performed by: [facility]/[place] [address] PROTEIN S [id number] 11:03:00 Test Item Value Reference Range Comments PROTEIN S TOTAL (test % code=PROTSTOT) PROTEIN S FUNC (test 70 % 74-148 Protein S deficiency may be acquired code=PROTSFN) due to recentthrombosis, oral anticoagulant therapy, , oralcontraceptives or hormone replacement therapy, liverdysfunction, recent surgery, DIC, and vitamin K deficiency.Hereditary deficiency of Protein S show decreased levels butare rare. Elevated Protein S levels are not clinicallysignificant. Only decreased levels are associated with anincreased thrombotic risk. MTHF REDUCTASE (PCR) [id number] 11:03:00 Test Item Value Reference Range Comments MTHF REDUCTASE (PCR) 677 (test code=MTHFR 677) LUPUS ANTICOAGULANT [id number] 21:21:00 Test Item Value Reference Range Comments PROTHROMBIN TIME PATIENT 17.8 SECONDS 9.3-12.9 (test code=PTP) INTERNATIONAL NORMAL RATIO 1.6 0.8-1.2 TARGET INR BY (test code=INR) INDICATION Indication INR1. Prophylaxis of venous thrombosis 2.0 - 3.0 (orthopedic surgery), Prophylaxis of venous thrombosis (other than high-risk surgery), Treatment of Deep Vein Thrombosis/Pulmonary Embolism, Prevention of systemic embolism - Tissue heart valves, Acute Myocardial Infarction (to prevent systemic embolism), Valvular heart disease, Atrial Fibrillation, Bileaflet mechanical valve in aortic position.2. Mechanical prosthetic valves (high risk), 2.5 - 3.5 Presence of Lupus Anticoagulant or Antiphospholipid Antibodies, Prevention of systemic embolism - Acute Myocardial Infarction (to prevent recurrent infarct). THROMBOPLASTIN TIME PARTIAL 42.6 Seconds 25.0-39.5 Therapeutic Range: (test code=PTT) 61.8-83.8 Sec Effective 07/21/2013 RVVT PATIENT (test 1.5 RATIO 0.0-1.2 code=RVVTPAT) SILICA CLOTTING TIME (test 1.05 <=1.17 A Lupus Anticoagulant is NOT code=SILCLOT) DETECTED. This interpretationis based on the test results. Prolonged screening tests and negative confirmatory testsmay be caused by factor deficiencies or anticoagulanttherapy. Patient is on warfarin and enoxaparin.Previously reported result: 1.05 Edited by: SMITA on 07/06/18:[id number] 1510: SILICA CLOTTING previously reported as: 1.05 ARTERIAL THROMBOPHILIA [id number] 21:21:00 Test Item Value Reference Range Comments PROTHROMBIN 3 UNTRANSLATED (test code=VO4RSLG) ACTIVATED PROT C 3.09 RATIO 2.31-5.00 Ratios > or=to 2.31 are RESISTANCE (test considered negative for the code=APC) FactorV Leiden. FACTOR V MUTATION (LEIDEN) (test code=FAC5M) PROTEIN S FREE (test 56 % 68-126 Protein S deficiency may be code=PROTSFR) acquired due to recentthrombosis, oral anticoagulant therapy, , oralcontraceptives or hormone replacement therapy, liverdysfunction, recent surgery, DIC, and vitamin K deficiency.Hereditary deficiency of Protein S show decreased levels butare rare. Elevated Protein S levels are not clinicallysignificant. Only decreased levels are associated with anincreased thrombotic risk. MONY IGG (test 0.2 GPL <=15 code=ACAG) MONY IGA (test 0.5 APL <=12 code=ACAA) MONY IGM (test 3.5 MPL <=12.5 The Antiphospholipid Syndrome code=ACAM) (APS) is a clinical pathologiccondition that includes a clinical event (vascularthrombosis, mortality, thrombocytopenia, etc.) andpersistent positivity of antiphospholipid antibodies (IgG orIgM MONY>40 GPL/MPL, IgG or IgM anti-B2GPI antibodies, or thepresence of a Lupus Anticoagulant). The InternationalConsensus guidelines suggest that these isotypes must bepresent on two or more occasions and at least 12 weeks apartto confirm antibody persistence. Although the IgA isotypehas been implicated in thrombotic events, these isotypeshave not yet been included into the APS criteria. SZXZ-0-TEPJI I IGM SMU 0.0-20.0 (test code=GPIIGM) GMDQ-3-UPRUK I IGG SGU 0.0-20.0 (test code=GPIIGG) TTOK-4-MIXXV I IGA 0.5 AHMET 0.0-20.0 The Antiphospholipid Syndrome (test code=GPIIGA) (APS) is a clinical pathologiccondition that includes a clinical event (vascularthrombosis, mortality, thrombocytopenia, etc.) andpersistent positivity of antiphospholipid antibodies (IgG orIgM MONY>40 GPL/MPL, IgG or IgM anti-B2GPI antibodies, or thepresence of a Lupus Anticoagulant). The InternationalConsensus guidelines suggest that these isotypes must bepresent on two or more occasions and at least 12 weeks apartto confirm antibody persistence. Although the IgA isotypehas been implicated in thrombotic events, these isotypeshave not yet been included into the APS criteria. HOMOCYSTEINE (test TEST NOT PERFORMED 3.2-10.7 code=HOMOCY) umol/L HIGH SENSITIVITY CRP mg/dl 0.000-0.747 (test code=CRPHS) [id number] 21:21:00 Test Item Value Reference Range Comments FIBRINOGEN (test code=FIB) 640 MG/DL 160-450 Excess administration of anticoagulants and/or FibrinDegradation Products may affect Fibrinogen value. FACTOR [id number] 21:21:00 Test Item Value Reference Range Comments FACTOR VII (test code=FAC7) 57 % 60-140 ANTITHROMBIN III (ATIII)2018-07-09 21:21:00 Test Item Value Reference Range Comments ANTITHROMBIN III (ATIII) (test 77 % 83-128 Acquired antithrombin code=AT3) deficiency may occur with renalfailure associated with proteinuria nephrotic syndrome,liver failure or cirrhosis or an immature liver secondary topremature , accelerated consumption due to severeinjury, DIC, or recent thrombosis, and heparin therapy.Hereditary deficiency of Protein S show decreased levels butare rare. Elevated Antithrombin levels are not clinicallysignificant. PROTEIN C [id number] 21:21:00 Test Item Value Reference Range Comments PROTEIN C FUNCTIONAL (test 56 % 70-140 Protein C deficiency may be acquired code=PROTCFN) due to recentthrombosis, oral anticoagulant therapy, hepatic disorders,post-surgery, DIC, and vitamin K deficiency. Hereditarydeficiency show decreased levels but are rare. ElevatedProtein C levels are not clinically significant. Only decreased levels are associated with increased thromboticrisk. However, oral anti-Xa or anti-thrombin medications maycause falsely increased levels of Protein C. PROTEIN C [id number] 21:21:00 Test Item Value Reference Range Comments PROTEIN C ANTIGENIC (test 71 % 70-140 Decreased levels of Protein C code=PROTCAG) Antigen may be found incongenital deficiency, treatment with oral anticoagulants,liver disease, D.I.C. and post surgery. Performed by: [facility] [place] [address] PROTEIN S [id number] 21:21:00 Test Item Value Reference Range Comments PROTEIN S TOTAL (test % code=PROTSTOT) PROTEIN S FUNC (test 70 % 74-148 Protein S deficiency may be acquired code=PROTSFN) due to recentthrombosis, oral anticoagulant therapy, , oralcontraceptives or hormone replacement therapy, liverdysfunction, recent surgery, DIC, and vitamin K deficiency.Hereditary deficiency of Protein S show decreased levels butare rare. Elevated Protein S levels are not clinicallysignificant. Only decreased levels are associated with anincreased thrombotic risk. MTHF REDUCTASE (PCR) [id number] 21:21:00 Test Item Value Reference Range Comments MTHF REDUCTASE (PCR) 677 (test code=MTHFR 677) ANTIPHOSPHATIDYL SERINE [id number] 16:18:00 Test Item Value Reference Range Comments APS ABS IGG (test 2 GPS IgG 0-11 Performed At: [facility] code=APSIGG) [address] [id number] Batista MD Ph:[phone] APS ABS IGM (test 5 MPS IgM 0-25 code=APSIGM) APS ABS IGA (test 1 APS IgA 0-20 code=APSIGA) LUPUS ANTICOAGULANT [id number] 14:43:00 Test Item Value Reference Range Comments PROTHROMBIN TIME PATIENT 17.8 SECONDS 9.3-12.9 (test code=PTP) INTERNATIONAL NORMAL RATIO 1.6 0.8-1.2 TARGET INR BY (test code=INR) INDICATION Indication INR1. Prophylaxis of venous thrombosis 2.0 - 3.0 (orthopedic surgery), Prophylaxis of venous thrombosis (other than high-risk surgery), Treatment of Deep Vein Thrombosis/Pulmonary Embolism, Prevention of systemic embolism - Tissue heart valves, Acute Myocardial Infarction (to prevent systemic embolism), Valvular heart disease, Atrial Fibrillation, Bileaflet mechanical valve in aortic position.2. Mechanical prosthetic valves (high risk), 2.5 - 3.5 Presence of Lupus Anticoagulant or Antiphospholipid Antibodies, Prevention of systemic embolism - Acute Myocardial Infarction (to prevent recurrent infarct). 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 This interpretationis based on the test results. Prolonged screening tests and negative confirmatory testsmay be caused by factor deficiencies or anticoagulanttherapy. Patient is on warfarin and enoxaparin.Previously reported result: 1.05 Edited by: SMITA on 07/06/18:[id number] 1510: SILICA CLOTTING previously reported as: 1.05 ARTERIAL THROMBOPHILIA [id number] 14:43:00 Test Item Value Reference Range Comments PROTHROMBIN 3 UNTRANSLATED (test code=UM4KDPH) ACTIVATED PROT C 3.09 RATIO 2.31-5.00 Ratios > or=to 2.31 are RESISTANCE (test considered negative for the code=APC) FactorV Leiden. FACTOR V MUTATION (LEIDEN) (test code=FAC5M) PROTEIN S FREE (test 56 % 68-126 Protein S deficiency may be code=PROTSFR) acquired due to recentthrombosis, oral anticoagulant therapy, , oralcontraceptives or hormone replacement therapy, liverdysfunction, recent surgery, DIC, and vitamin K deficiency.Hereditary deficiency of Protein S show decreased levels butare rare. Elevated Protein S levels are not clinicallysignificant. Only decreased levels are associated with anincreased thrombotic risk. MONY IGG (test 0.2 GPL <=15 code=ACAG) MONY IGA (test 0.5 APL <=12 code=ACAA) MONY IGM (test 3.5 MPL <=12.5 The Antiphospholipid Syndrome code=ACAM) (APS) is a clinical pathologiccondition that includes a clinical event (vascularthrombosis, mortality, thrombocytopenia, etc.) andpersistent positivity of antiphospholipid antibodies (IgG orIgM MONY>40 GPL/MPL, IgG or IgM anti-B2GPI antibodies, or thepresence of a Lupus Anticoagulant). The InternationalConsensus guidelines suggest that these isotypes must bepresent on two or more occasions and at least 12 weeks apartto confirm antibody persistence. Although the IgA isotypehas been implicated in thrombotic events, these isotypeshave not yet been included into the APS criteria. IFLG-1-JGBWD I IGM SMU 0.0-20.0 (test code=GPIIGM) ZRVM-7-KADYG I IGG SGU 0.0-20.0 (test code=GPIIGG) KUJL-2-EWDVG I IGA 0.5 AHMET 0.0-20.0 The Antiphospholipid Syndrome (test code=GPIIGA) (APS) is a clinical pathologiccondition that includes a clinical event (vascularthrombosis, mortality, thrombocytopenia, etc.) andpersistent positivity of antiphospholipid antibodies (IgG orIgM MONY>40 GPL/MPL, IgG or IgM anti-B2GPI antibodies, or thepresence of a Lupus Anticoagulant). The InternationalConsensus guidelines suggest that these isotypes must bepresent on two or more occasions and at least 12 weeks apartto confirm antibody persistence. Although the IgA isotypehas been implicated in thrombotic events, these isotypeshave not yet been included into the APS criteria. HOMOCYSTEINE (test TEST NOT PERFORMED 3.2-10.7 code=HOMOCY) umol/L HIGH SENSITIVITY CRP mg/dl 0.000-0.747 (test code=CRPHS) [id number] 14:43:00 Test Item Value Reference Range Comments FIBRINOGEN (test code=FIB) 640 MG/DL 160-450 Excess administration of anticoagulants and/or FibrinDegradation Products may affect Fibrinogen value. FACTOR [id number] 14:43:00 Test Item Value Reference Range Comments FACTOR VII (test code=FAC7) 57 % 60-140 ANTITHROMBIN III (ATIII)2018-07-09 14:43:00 Test Item Value Reference Range Comments ANTITHROMBIN III (ATIII) (test 77 % 83-128 Acquired antithrombin code=AT3) deficiency may occur with renalfailure associated with proteinuria nephrotic syndrome,liver failure or cirrhosis or an immature liver secondary topremature , accelerated consumption due to severeinjury, DIC, or recent thrombosis, and heparin therapy.Hereditary deficiency of Protein S show decreased levels butare rare. Elevated Antithrombin levels are not clinicallysignificant. PROTEIN C [id number] 14:43:00 Test Item Value Reference Range Comments PROTEIN C FUNCTIONAL (test 56 % 70-140 Protein C deficiency may be acquired code=PROTCFN) due to recentthrombosis, oral anticoagulant therapy, hepatic disorders,post-surgery, DIC, and vitamin K deficiency. Hereditarydeficiency show decreased levels but are rare. ElevatedProtein C levels are not clinically significant. Only decreased levels are associated with increased thromboticrisk. However, oral anti-Xa or anti-thrombin medications maycause falsely increased levels of Protein C. PROTEIN C [id number] 14:43:00 Test Item Value Reference Range Comments PROTEIN C ANTIGENIC (test 71 % 70-140 Decreased levels of Protein C code=PROTCAG) Antigen may be found incongenital deficiency, treatment with oral anticoagulants,liver disease, D.I.C. and post surgery. Performed by: [facility] [address] PROTEIN S [id number] 14:43:00 Test Item Value Reference Range Comments PROTEIN S TOTAL (test % code=PROTSTOT) PROTEIN S FUNC (test 70 % 74-148 Protein S deficiency may be acquired code=PROTSFN) due to recentthrombosis, oral anticoagulant therapy, , oralcontraceptives or hormone replacement therapy, liverdysfunction, recent surgery, DIC, and vitamin K deficiency.Hereditary deficiency of Protein S show decreased levels butare rare. Elevated Protein S levels are not clinicallysignificant. Only decreased levels are associated with anincreased thrombotic risk. MTHF REDUCTASE (PCR) [id number] 14:43:00 Test Item Value Reference Range Comments MTHF REDUCTASE (PCR) 677 (test code=MTHFR 677) LUPUS ANTICOAGULANT [id number] 14:31:00 Test Item Value Reference Range Comments PROTHROMBIN TIME PATIENT 17.8 SECONDS 9.3-12.9 (test code=PTP) INTERNATIONAL NORMAL RATIO 1.6 0.8-1.2 TARGET INR BY (test code=INR) INDICATION Indication INR1. Prophylaxis of venous thrombosis 2.0 - 3.0 (orthopedic surgery), Prophylaxis of venous thrombosis (other than high-risk surgery), Treatment of Deep Vein Thrombosis/Pulmonary Embolism, Prevention of systemic embolism - Tissue heart valves, Acute Myocardial Infarction (to prevent systemic embolism), Valvular heart disease, Atrial Fibrillation, Bileaflet mechanical valve in aortic position.2. Mechanical prosthetic valves (high risk), 2.5 - 3.5 Presence of Lupus Anticoagulant or Antiphospholipid Antibodies, Prevention of systemic embolism - Acute Myocardial Infarction (to prevent recurrent infarct). 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 This interpretationis based on the test results. Prolonged screening tests and negative confirmatory testsmay be caused by factor deficiencies or anticoagulanttherapy. Patient is on warfarin and enoxaparin.Previously reported result: 1.05 Edited by: SMITA on 07/06/18:[id number]: SILICA CLOTTING previously reported as: 1.05 ARTERIAL THROMBOPHILIA [id number] 14:31:00 Test Item Value Reference Range Comments PROTHROMBIN 3 UNTRANSLATED (test code=NI8HHFZ) ACTIVATED PROT C 3.09 RATIO 2.31-5.00 Ratios > or=to 2.31 are RESISTANCE (test considered negative for the code=APC) FactorV Leiden. FACTOR V MUTATION (LEIDEN) (test code=FAC5M) PROTEIN S FREE (test 56 % 68-126 Protein S deficiency may be code=PROTSFR) acquired due to recentthrombosis, oral anticoagulant therapy, , oralcontraceptives or hormone replacement therapy, liverdysfunction, recent surgery, DIC, and vitamin K deficiency.Hereditary deficiency of Protein S show decreased levels butare rare. Elevated Protein S levels are not clinicallysignificant. Only decreased levels are associated with anincreased thrombotic risk. MONY IGG (test 0.2 GPL <=15 code=ACAG) MONY IGA (test 0.5 APL <=12 code=ACAA) MONY IGM (test 3.5 MPL <=12.5 The Antiphospholipid Syndrome code=ACAM) (APS) is a clinical pathologiccondition that includes a clinical event (vascularthrombosis, mortality, thrombocytopenia, etc.) andpersistent positivity of antiphospholipid antibodies (IgG orIgM MONY>40 GPL/MPL, IgG or IgM anti-B2GPI antibodies, or thepresence of a Lupus Anticoagulant). The InternationalConsensus guidelines suggest that these isotypes must bepresent on two or more occasions and at least 12 weeks apartto confirm antibody persistence. Although the IgA isotypehas been implicated in thrombotic events, these isotypeshave not yet been included into the APS criteria. QPWO-1-GHGRO I IGM SMU <20 (test code=GPIIGM) RKEW-5-XKLYC I IGG UNITS <20 (test code=GPIIGG) GMGL-7-HVZJA I IGA 0.0-20.0 (test code=GPIIGA) HOMOCYSTEINE (test TEST NOT PERFORMED 3.2-10.7 code=HOMOCY) umol/L HIGH SENSITIVITY CRP mg/dl 0.000-0.747 (test code=CRPHS) [id number] 14:31:00 Test Item Value Reference Range Comments FIBRINOGEN (test code=FIB) 640 MG/DL 160-450 Excess administration of anticoagulants and/or FibrinDegradation Products may affect Fibrinogen value. FACTOR [id number] 14:31:00 Test Item Value Reference Range Comments FACTOR VII (test code=FAC7) 57 % 60-140 ANTITHROMBIN III (ATIII)2018-07-09 14:31:00 Test Item Value Reference Range Comments ANTITHROMBIN III (ATIII) (test 77 % 83-128 Acquired antithrombin code=AT3) deficiency may occur with renalfailure associated with proteinuria nephrotic syndrome,liver failure or cirrhosis or an immature liver secondary topremature , accelerated consumption due to severeinjury, DIC, or recent thrombosis, and heparin therapy.Hereditary deficiency of Protein S show decreased levels butare rare. Elevated Antithrombin levels are not clinicallysignificant. PROTEIN C [id number] 14:31:00 Test Item Value Reference Range Comments PROTEIN C FUNCTIONAL (test 56 % 70-140 Protein C deficiency may be acquired code=PROTCFN) due to recentthrombosis, oral anticoagulant therapy, hepatic disorders,post-surgery, DIC, and vitamin K deficiency. Hereditarydeficiency show decreased levels but are rare. ElevatedProtein C levels are not clinically significant. Only decreased levels are associated with increased thromboticrisk. However, oral anti-Xa or anti-thrombin medications maycause falsely increased levels of Protein C. PROTEIN C [id number] 14:31:00 Test Item Value Reference Range Comments PROTEIN C ANTIGENIC (test 71 % 70-140 Decreased levels of Protein C code=PROTCAG) Antigen may be found incongenital deficiency, treatment with oral anticoagulants,liver disease, D.I.C. and post surgery. Performed by: [facility]/[place] [address] PROTEIN S [id number] 14:31:00 Test Item Value Reference Range Comments PROTEIN S TOTAL (test % code=PROTSTOT) PROTEIN S FUNC (test 70 % 74-148 Protein S deficiency may be acquired code=PROTSFN) due to recentthrombosis, oral anticoagulant therapy, , oralcontraceptives or hormone replacement therapy, liverdysfunction, recent surgery, DIC, and vitamin K deficiency.Hereditary deficiency of Protein S show decreased levels butare rare. Elevated Protein S levels are not clinicallysignificant. Only decreased levels are associated with anincreased thrombotic risk. MTHF REDUCTASE (PCR) [id number] 14:31:00 Test Item Value Reference Range Comments MTHF REDUCTASE (PCR) 677 (test code=MTHFR 677)
[2018-08-10] MEDS ORDERED: MAGNE/ALUM HYDROXD 30 ML UCUP ONE (16:26)
[2018-08-10] MEDS ORDERED: LIDOCAINE VISCOUS 2% SOLN 15 ML UDC ONE (16:26)
--- NOTE | 2018-08-10 16:41 | RAD REPORT ---
EXAM DESCRIPTION: RAD - Chest Pa And Lat (2 Views) - 08/10/2018 4:34 pm CLINICAL HISTORY: SOB Chest pain. COMPARISON: Chest Single View dated 05/23/2018; Chest Single View dated 01/21/2018; Chest Single View d ated 01/11/2018; Chest Single View dated 01/09/2018 FINDINGS: The lungs are clear. The heart is normal in size. No displaced fractures. IMPRESSION: No acute or concerning finding suspected.
--- NOTE | 2018-08-10 16:53 | EDPHYS ---
Physician Documentation [facility] Name: Marquis Nelson Age: 48 yrs Sex: Male : 1970 Arrival Date: 08/10/2018 Time: 14:36 Bed 6 Private MD: ED Physician Jose Nolasco HPI: 08/10 16:03 This 48 yrs old Male presents to ER via EMS with complaints of Shortness Of snw Breath. 16:03 The patient has shortness of breath at rest. Onset: The symptoms/episode began/occurred snw suddenly, yesterday. Duration: The symptoms are intermittent, with no pattern. The patient's shortness of breath is aggravated by nothing. Associated signs and symptoms: The patient has no apparent associated signs or symptoms. Severity of symptoms: At their worst the symptoms were mild moderate. The patient has experienced similar episodes in the past, multiple times. The patient has been recently seen by a physician: with different complaint(s). Historical: - Allergies: 14:41 Beta Blockers (sensitive/hypotension); tw2 14:41 Demerol; tw2 14:41 Flomax; tw2 14:41 Neurontin; tw2 14:41 Skelaxin; tw2 14:41 Spironolactone; tw2 14:41 Stadol; tw2 14:41 tramadol; tw2 14:41 Ibuprofen; tw2 - PMHx: 14:41 ADD/ADHD; GERD; Atrial Fib; CHF; Kidney stones; R BUNDLE BRANCH BLOCK; Sleep Apnea; tw2 Anxiety; High Cholesterol; AAA; Anemia; Hypertension; Myocardial infarction; Pulmonary Embolism; - PSHx: 14:41 renal surgery; Hernia repair; Heart stents; internal holter monitor; tw2 - Immunization history:: Adult Immunizations. - Social history:: Smoking status: . - Ebola Screening: : Patient denies travel to an Ebola-affected area in the 21 days before illness onset. ROS: 16:00 Constitutional: Negative for fever, chills, and weight loss, Eyes: Negative for injury, snw pain, redness, and discharge, ENT: Negative for injury, pain, and discharge, Neck: Negative for injury, pain, and swelling, Cardiovascular: Negative for chest pain, palpitations, and edema, Respiratory: Negative for cough, wheezing, and pleuritic chest pain, + episodes of shortness of breath Abdomen/GI: Negative for abdominal pain, nausea, vomiting, diarrhea, and constipation, Back: Negative for injury and pain, : Negative for injury, bleeding, discharge, and swelling, MS/Extremity: Negative for injury and deformity, Skin: Negative for injury, rash, and discoloration, Neuro: Negative for headache, weakness, numbness, tingling, and seizure. Exam: 16:00 Constitutional: This is a well developed, well nourished patient who is awake, alert, snw and in no acute distress. Head/Face: Normocephalic, atraumatic. Eyes: Pupils equal round and reactive to light, extra-ocular motions intact. Lids and lashes normal. Conjunctiva and sclera are non-icteric and not injected. Cornea within normal limits. Periorbital areas with no swelling, redness, or edema. ENT: Nares patent. No nasal discharge, no septal abnormalities noted. Tympanic membranes are normal and external auditory canals are clear. Oropharynx with no redness, swelling, or masses, exudates, or evidence of obstruction, uvula midline. Mucous membranes moist. Neck: Trachea midline, no thyromegaly or masses palpated, and no cervical lymphadenopathy. Supple, full range of motion without nuchal rigidity, or vertebral point tenderness. No Meningismus. Chest/axilla: Normal chest wall appearance and motion. Nontender with no deformity. No lesions are appreciated. Cardiovascular: Regular rate and rhythm with a normal S1 and S2. No gallops, murmurs, or rubs. Normal PMI, no JVD. No pulse deficits. Respiratory: Lungs have equal breath sounds bilaterally, clear to auscultation and percussion. No rales, rhonchi or wheezes noted. No increased work of breathing, no retractions or nasal flaring. Abdomen/GI: Soft, non-tender, with normal bowel sounds. No distension or tympany. No guarding or rebound. No evidence of tenderness throughout. Back: No spinal tenderness. No costovertebral tenderness. Full range of motion. MS/ Extremity: Pulses equal, no cyanosis. Neurovascular intact. Full, normal range of motion. Neuro: Awake and alert, GCS 15, oriented to person, place, time, and situation. Cranial nerves II-XII grossly intact. Motor strength 5/5 in all extremities. Sensory grossly intact. Cerebellar exam normal. Normal gait. Psych: Awake, alert, with orientation to person, place and time. Behavior, mood, and affect are within normal limits. 16:00 Skin: Appearance: normal except for affected area, injury, abrasion(s), small abrasion noted, of the dorsal aspect of left forearm, + oozing of blood from abrasion from yesterday. Concern for clotting is low. Vital Signs: 14:38 BP 108 / 69; Pulse 74; Resp 18; Temp 98.8(O); Pulse Ox 98% on R/A; Pain 0/10; tw2 15:20 BP 110 / 60; Pulse 71; Resp 17; Pulse Ox 98% on R/A; tw2 16:13 BP 106 / 74; Pulse 73; Resp 16; Pulse Ox 95% on R/A; tw2 17:23 BP 120 / 77; Pulse 71; Resp 17; Pulse Ox 96% on R/A; tw2 MDM: 15:04 Patient medically screened. snw 17:01 Data reviewed: vital signs, nurses notes. Data interpreted: Pulse oximetry: on room air snw is 95 %. Interpretation: acceptable. Counseling: I had a detailed discussion with the patient and/or guardian regarding: the historical points, exam findings, and any diagnostic results supporting the discharge/admit diagnosis, radiology results, the need for outpatient follow up, for definitive care, to return to the emergency department if symptoms worsen or persist or if there are any questions or concerns that arise at home. 08/10 15:08 Order name: Chest Pa And Lat (2 Views) XRAY; Complete Time: 16:51 snw 08/10 15:08 Order name: EKG; Complete Time: 15:09 snw 08/10 15:08 Order name: EKG - Nurse/Tech; Complete Time: 15:22 snw Administered Medications: 16:17 Drug: GI Cocktail without - (Maalox Suspension 30 ml, Lidocaine Liquid 2 % 15 tw2 ml) Route: PO; 16:58 Follow up: Response: No adverse reaction tw2 16:58 Drug: Ativan 0.5 mg Route: PO; tw2 17:25 Follow up: Response: No adverse reaction; Marked relief of symptoms tw2 Disposition: 08/11 07:16 Co-signature as Attending Physician, Jose Nolasco MD I agree with the assessment and ap plan of care. Disposition: 08/10/18 16:52 Discharged to Home. Impression: Shortness of breath. - Condition is Stable. - Discharge Instructions: Food Choices for Gastroesophageal Reflux Disease, Adult, Shortness of Breath. - Medication Reconciliation Form, Thank You Letter, Antibiotic Education, Prescription Opioid Use form. - Follow up: Private Physician; When: 2 - 3 days; Reason: Recheck today's complaints, Continuance of care, Re-evaluation by your physician. Follow up: Emergency Department; When: As needed; Reason: Worsening of condition. Signatures: Dispatcher [employer] EDMS Jose Nolasco MD MD cha Therrien, Shelly, NETWORK SUPPORT-C NETWORK SUPPORT-Csnw Kerry Russell RN RN tw2 Corrections: (The following items were deleted from the chart) 08/10 16:03 16:00 Skin: Appearance: normal except for affected area, injury, abrasion(s), small snw abrasion noted, of the dorsal aspect of left forearm, snw 17:25 16:52 08/10/2018 16:52 Discharged to Home. Impression: Shortness of breath. Condition tw2 is Stable. Forms are Medication Reconciliation Form, Thank You Letter, Antibiotic Education, Prescription Opioid Use. Follow up: Private Physician; When: 2 - 3 days; Reason: Recheck today's complaints, Continuance of care, Re-evaluation by your physician. Follow up: Emergency Department; When: As needed; Reason: Worsening of condition. snw
--- NOTE | 2018-08-10 16:53 | ER ---
Nurse's Notes [facility] Name: Marquis Nelson Age: 48 yrs Sex: Male : 1970 Arrival Date: 08/10/2018 Time: 14:36 Bed 6 Private MD: Diagnosis: Shortness of breath Presentation: 08/10 14:36 Presenting complaint: EMS states: pt c/o SOB started today and gotten worse today, hx tw2 of multiple PE, VA, CHF, vs stable for us. Transition of care: patient was not received from another setting of care. Onset of symptoms was August 10, 2018. Risk Assessment: Do you want to hurt yourself or someone else? Patient reports no desire to harm self or others. Initial Sepsis Screen: Does the patient meet any 2 criteria? No. Patient's initial sepsis screen is negative. Does the patient have a suspected source of infection? No. Patient's initial sepsis screen is negative. Care prior to arrival: None. 14:36 Method Of Arrival: EMS: [facility] tw2 14:36 Acuity: THANH 3 tw2 Triage Assessment: 14:49 General: Appears in no apparent distress. Behavior is calm, cooperative, appropriate tw2 for age. Pain: Denies pain. Respiratory: Reports shortness of breath Onset: The symptoms/episode began/occurred yesterday, the patient has mild shortness of breath. Historical: - Allergies: 14:41 Beta Blockers (sensitive/hypotension); tw2 14:41 Demerol; tw2 14:41 Flomax; tw2 14:41 Neurontin; tw2 14:41 Skelaxin; tw2 14:41 Spironolactone; tw2 14:41 Stadol; tw2 14:41 tramadol; tw2 14:41 Ibuprofen; tw2 - PMHx: 14:41 ADD/ADHD; GERD; Atrial Fib; CHF; Kidney stones; R BUNDLE BRANCH BLOCK; Sleep Apnea; tw2 Anxiety; High Cholesterol; AAA; Anemia; Hypertension; Myocardial infarction; Pulmonary Embolism; - PSHx: 14:41 renal surgery; Hernia repair; Heart stents; internal holter monitor; tw2 - Immunization history:: Adult Immunizations. - Social history:: Smoking status: . - Ebola Screening: : Patient denies travel to an Ebola-affected area in the 21 days before illness onset. Screenin:48 Abuse screen: Denies threats or abuse. Nutritional screening: No deficits noted. tw2 Tuberculosis screening: No symptoms or risk factors identified. Fall Risk None identified. Assessment: 14:37 General: Appears in no apparent distress. Behavior is anxious. Neuro: Level of tw2 Consciousness is awake, alert, obeys commands, Oriented to person, place, time, situation. Respiratory: Reports shortness of breath Airway is patent Respiratory effort is even, unlabored, Respiratory pattern is regular, symmetrical, Breath sounds are clear bilaterally. GI: Abdomen is round non-distended, obese, Bowel sounds present X 4 quads. : No signs and/or symptoms were reported regarding the genitourinary system. EENT: No signs and/or symptoms were reported regarding the EENT system. Derm: No signs and/or symptoms reported regarding the dermatologic system. Musculoskeletal: Range of motion: intact in all extremities. 14:48 Cardiovascular: Rhythm is regular. Respiratory: Airway is patent Respiratory effort is tw2 even, unlabored, Breath sounds are clear bilaterally. 16:14 Reassessment: Patient appears in no apparent distress at this time. No changes from tw2 previously documented assessment. Patient and/or family updated on plan of care and expected duration. Pain level reassessed. Patient is alert, oriented x 3, equal unlabored respirations, skin warm/dry/pink. 16:52 Reassessment: I am feeling real anxious note, provider notified. tw2 16:54 GI: Abdomen is round non-distended, obese, Bowel sounds present X 4 quads. : No signs tw2 and/or symptoms were reported regarding the genitourinary system. 17:23 Reassessment: Patient appears in no apparent distress at this time. No changes from tw2 previously documented assessment. Patient and/or family updated on plan of care and expected duration. Pain level reassessed. Patient is alert, oriented x 3, equal unlabored respirations, skin warm/dry/pink. Vital Signs: 14:38 BP 108 / 69; Pulse 74; Resp 18; Temp 98.8(O); Pulse Ox 98% on R/A; Pain 0/10; tw2 15:20 BP 110 / 60; Pulse 71; Resp 17; Pulse Ox 98% on R/A; tw2 16:13 BP 106 / 74; Pulse 73; Resp 16; Pulse Ox 95% on R/A; tw2 17:23 BP 120 / 77; Pulse 71; Resp 17; Pulse Ox 96% on R/A; tw2 ED Course: 14:36 Patient arrived in ED. tw2 14:36 Bed in low position. Call light in reach. Side rails up X2. auto body straightener on. Pulse tw2 ox on. NIBP on. 14:38 Triage completed. tw2 14:38 Arm band placed on. tw2 14:48 Kerry Russell RN is Primary Nurse. tw2 15:04 Elisabeth Luu FNP-C is [facility]. snw 15:04 Jose Nolasco MD is Attending Physician. snw 15:23 EKG done, by information technology project manager. reviewed by Elisabeth METZ. at1 16:33 X-ray completed. Patient tolerated procedure well. Patient moved back from radiology. ls3 16:34 Chest Pa And Lat (2 Views) XRAY In Process Unspecified. EDMS 17:24 No provider procedures requiring assistance completed. Patient did not have IV access tw2 during this emergency room visit. Administered Medications: 16:17 Drug: GI Cocktail without - (Maalox Suspension 30 ml, Lidocaine Liquid 2 % 15 tw2 ml) Route: PO; 16:58 Follow up: Response: No adverse reaction tw2 16:58 Drug: Ativan 0.5 mg Route: PO; tw2 17:25 Follow up: Response: No adverse reaction; Marked relief of symptoms tw2 Outcome: 16:52 Discharge ordered by MD. snw 17:24 Discharged to home ambulatory. tw2 17:24 Condition: stable 17:24 Discharge instructions given to patient, Instructed on discharge instructions, follow up and referral plans. Demonstrated understanding of instructions, follow-up care. 17:25 Patient left the ED. tw2 Signatures: Dispatcher [employer] EDMS Elisabeth Luu FNP-C [employer] Imani Honeycutt, casino cage manager EKG Tat1 Kerry Russell RN RN tw2 Catherine Robison ls3 Corrections: (The following items were deleted from the chart) 14:42 14:38 Pulse 74bpm; Resp 18bpm; Pulse Ox 98% RA; Temp 98.8F Oral; tw2 tw2 14:50 14:38 BP 108 / 69; Pulse 74bpm; Resp 18bpm; Pulse Ox 98% RA; Temp 98.8F Oral; tw2 tw2
[2018-08-10] MEDS ORDERED: LORAZEPAM 0.5 MG TABLET ONE (17:08)
--- NOTE | 2018-08-10 17:21 | EKG ---
Test Date: 2018-08-10 Test Time: 15:14:48 Equipment Tester: VANESSA MEASUREMENT RESULTS: Intervals: Rate: 73 AL: 180 QRSD: 138 QT: 438 QTc: 482 [place]: P: -9 AL: 180 QRS: -5 T: -3 INTERPRETIVE STATEMENTS: Normal sinus rhythm Right bundle branch block Inferior infarct, age undetermined Abnormal ECG Compared to ECG 05/23/2018 13:03:52 No significant changes Electronically Signed On 08-10-18 17:20:55 RIBBON TIER by Guilherme Sharma
[2018-08-10 17:58] VITALS: TEMP 98.8
[2018-08-10 18:02] VITALS: BP 120/77; O2SAT 96
== END 2018-08-10 17:25 | disposition home or self-care (01) ==
LOC: ER 14:32
DX: R06.02 Shortness of breath (principal); K21.9 Gastro-esophageal reflux disease without esophagitis; I48.91 Unspecified atrial fibrillation; I11.0 Hypertensive heart disease with heart failure; I50.9 Heart failure, unspecified; F41.9 Anxiety disorder, unspecified; E78.00 Pure hypercholesterolemia, unspecified; I25.2 Old myocardial infarction; Z88.5 Allergy status to narcotic agent; Z88.8 Allergy status to other drugs, medicaments and biological substances
CPT/HCPCS: 71046; 93005; 99284

== ENCOUNTER 2018-10-06 | Emergency (ER) | payer OTHER ==
--- OUTSIDE RECORDS SUMMARY | 2018-10-06 00:04 | XMS REPORT | Clinical Summary ---
:1970 Author Organization [facility] Address [address] [place] [address] Care Team Providers Name Role Phone Mark [...] INFLUENZA VACCINE 03/23/2018 Implants Implanted Type Area Welt Stitch Cleaner Device Shelf Model / Identifier Expiration Date Serial / Lot Promus Premier Oriel [employer] Implanted: Qty: 1 on 12/05/2015 Results Not on fileafter 10/05/2017 Advance Directives For more information, please contact:[place] [id number] [place], [place] [phone] Code Status Date Activated Date Inactivated Comments [...]
--- OUTSIDE RECORDS SUMMARY | 2018-10-06 00:04 | XMS REPORT | Clinical Summary ---
:1970 Author Organization [facility] Address [address] [place] [address] Care Team Providers Name Role Phone Asked, [...] Refills Start Date End Date Status allopurinol (ZYLOPRIM) Take 300 mg 0 Active 300 MG by mouth tabletIndications: daily. treatment to prevent acute gout attack atorvastatin (LIPITOR) Take 40 mg by 0 Active 40 MG mouth tabletIndications: nightly. excessive fat in the blood clonAZEPAM (KlonoPIN) Take by 0 Active 1 MG mouth. Take tabletIndications: 1/2 tablet in anxiety morning, 1/2 tablet at noon, and 1 tablet in the evening docusate sodium Take 100 mg 0 Active (COLACE) 100 MG by mouth capsuleIndications: daily. constipation furosemide (LASIX) 80 Take 80 mg by 0 Active mg tabletIndications: mouth 2 (two) visible water times a day. retention clopidogrel (PLAVIX) Take 75 mg by 0 Active 75 mg mouth daily. tabletIndications: blood clot prevention following percutaneous coronary intervention metOLazone (ZAROXOLYN) Take 2.5 mg 0 Active 2.5 MG by mouth tabletIndications: daily as high blood pressure needed (for weight gain greater than 5 poounds). metoprolol tartrate Take 12.5 mg 0 Active (LOPRESSOR) 25 mg by mouth tabletIndications: daily as Acute Coronary needed (if Syndrome pulse greater than 110). [address] 1 spray 0 Active (NITROLINGUAL) 400 under the mcg/spray tongue every sprayIndications: 5 (five) angina minutes as needed for chest pain. insulin ASPART Inject 10 0 Active (NovoLOG) 100 unit/mL Units under insulin the skin 3 penIndications: type 2 (three) times diabetes mellitus a day before meals. pantoprazole Take 40 mg by 0 Active (PROTONIX) 40 MG EC mouth daily. tabletIndications: gastroesophageal reflux disease insulin GLARGINE Inject 20 0 Active (LANTUS SOLOSTAR) 100 Units under unit/mL injection the skin (pen)Indications: type nightly. 2 diabetes mellitus potassium chloride Take 20 mEq 0 Active (K-DUR,KLOR-CON) 10 by mouth 3 MEQ CR (three) times tabletIndications: a day. Three prevention of low tabs QID potassium in the blood methocarbamol Take 750 mg 0 Active (ROBAXIN) 750 MG by mouth 2 tabletIndications: (two) times a muscle spasm day. ranolazine (RANEXA) Take 1,000 mg 0 Active 1,000 mg 12 hr by mouth 2 tabletIndications: (two) times a Chronic Stable Angina day. warfarin (COUMADIN) 10 Take 10 mg by 0 Active MG tabletIndications: mouth. On lung embolism Friday, , Friday, Friday warfarin (COUMADIN) Take 7.5 mg 0 Active 7.5 MG by mouth. On tabletIndications: Friday, lung embolism Friday, Friday cyanocobalamin 1,000 Inject 1,000 0 Active mcg/mL mcg into the injectionIndications: shoulder, Prevention of Vitamin thigh, or B12 Deficiency buttocks once a week. For 3 months, and then will reassess B12 levels desvenlafaxine Take 100 mg 0 Active (PRISTIQ) 100 MG 24 hr by mouth tabletIndications: daily. major depressive disorder ferrous sulfate 325 Take 325 mg 0 Active (65 FE) MG by mouth 3 tabletIndications: (three) times anemia from inadequate a day with iron meals. AMILoride (MIDAMOR) 5 Take 5 mg by 0 Active MG tabletIndications: mouth 2 (two) high blood pressure times a day. folic acid (FOLVITE) 1 Take 1 mg by 0 Active MG tabletIndications: mouth daily. inadequate folic acid aspirin (ECOTRIN) 81 Take 81 mg by 0 Discontinued MG enteric coated mouth daily. 8 tablet HYDROcodone-acetaminop Take 1 tablet 0 Discontinued hen (NORCO) 7.5-325 mg by mouth 3 8 per tablet (three) times a day. eplerenone (INSPRA) 25 Take 50 mg by 0 Discontinued MG tablet mouth 2 (two) 8 times a day. nitroglycerin Place 0.4 mg 0 Discontinued (NITROSTAT) 0.4 MG SL under the 8 tablet tongue every 5 (five) minutes as needed for chest pain. enoxaparin (LOVENOX) Inject 120 mg 0 Discontinued 120 mg/0.8 mL under the 8 syringeIndications: skin every 12 Acute Blood Clot in a (twelve) Blood Vessel Supplying hours. the Lungs PARoxetine (PAXIL) 30 Take 30 mg by 0 Discontinued MG tablet mouth every 8 morning. HYDROcodone-acetaminop Take 1 tablet 21 tablet 0 01/28/2018 hen (NORCO) 7.5-325 mg by mouth 3 8 per tabletIndications: (three) times unmanageable pain a day as needed for moderate pain for up to 21 doses. Max Daily Amount: 3 tablets PARoxetine (PAXIL) 20 Take 1 tablet 30 tablet 0 01/29/2018 MG tabletIndications: (20 mg total) 8 Anxiousness associated by mouth with Depression daily for 30 days. Active Problems Problem Noted [...] Jules MD 01/23/2018 Intake Access N/A after 10/05/2017 Social History Tobacco Use Types Packs/Day Years [...] Due Date Last Done Comments INFLUENZA VACCINE 01/21/2019 Procedures Procedure Name Priority Date/Time Associated Comments [...] procedure are in the results section. after 10/05/2017 Results POC glucose (01/29/2018 6:14 AM CDT)Only the most recent of21 resultswithin the time period is included. POC glucose 132 (H) 65 - 99 mg/dL [facility] DEPARTMENT OF PATHOLOGY AND Comment: ITao Meter ID: [id number] Synthetic Soil Blocks Pulper: Willie Márquez Performing Organization Address [facility] [place] Number [facility] DEPARTMENT OF PATHOLOGY AND [address] [place] [address] [email or web address] [facility] Prothrombin time with INR (01/28/2018 11:17 AM CDT)Only the most recent of5 resultswithin the time period is included. Prothrombin time 23.2 (H) 12.0 - 15.0 sec [facility] DEPARTMENT OF PATHOLOGY AND [email or web address] MEDICINE INR 2.0 [facility] DEPARTMENT OF Comment: PATHOLOGY AND GENOMIC The International Normalized Ratio (INR) is a therapeutic MEDICINE monitoring tool for patients who are stable on oral anticoagulant therapy. An INR of 2.0-3.0 is suggested for deep vein thrombosis/pulmonary embolism. Specimen Blood Performing Organization Address [facility] [place] Number [facility] DEPARTMENT OF PATHOLOGY AND [address] [place] [address] [employer] Estimated GFR (01/25/2018 5:50 AM CDT) GFR Non Af Amer 90 mL/min/1.73 m2 [facility] DEPARTMENT OF PATHOLOGY AND [email or web address] MEDICINE GFR Af Amer >90 mL/min/1.73 m2 [facility] DEPARTMENT OF Comment: PATHOLOGY AND GENOMIC Chronic [...] specimen Performing Organization Address City/State/Zipcode Phone Number [facility] DEPARTMENT OF PATHOLOGY AND [address] [place] [address] [email or web address] [facility] CBC with platelet and differential (01/25/2018 5:50 AM CDT) WBC 13.93 (H) 4.50 - 11.00 k/uL [facility] DEPARTMENT OF PATHOLOGY AND GENOMIC MEDICINE RBC 4.88 4.40 - 6.00 m/uL [facility] DEPARTMENT OF PATHOLOGY AND GENOMIC MEDICINE HGB 12.7 (L) 14.0 - 18.0 g/dL [facility] DEPARTMENT OF PATHOLOGY AND GENOMIC MEDICINE HCT 39.4 (L) 41.0 - 51.0 % [facility] DEPARTMENT OF PATHOLOGY AND GENOMIC MEDICINE MCV 80.7 (L) 82.0 - 100.0 fL [facility] DEPARTMENT OF PATHOLOGY AND GENOMIC MEDICINE MCH 26.0 (L) 27.0 - 34.0 pg [facility] DEPARTMENT OF PATHOLOGY AND GENOMIC MEDICINE MCHC 32.2 31.0 - 37.0 g/dL [facility] DEPARTMENT OF PATHOLOGY AND GENOMIC MEDICINE RDW - SD 47.6 37.0 - 55.0 fL [facility] DEPARTMENT OF PATHOLOGY AND GENOMIC MEDICINE MPV 9.6 8.8 - 13.2 fL [facility] DEPARTMENT OF PATHOLOGY AND GENOMIC MEDICINE Platelet count 281 150 - 400 k/uL [facility] DEPARTMENT OF PATHOLOGY AND GENOMIC MEDICINE Nucleated RBC 0.00 /100 WBC [facility] DEPARTMENT OF PATHOLOGY AND GENOMIC MEDICINE Neutrophils 69.6 (H) 39.0 - 69.0 % [facility] DEPARTMENT OF PATHOLOGY AND GENOMIC MEDICINE Lymphocytes 20.5 (L) 25.0 - 45.0 % [facility] DEPARTMENT OF PATHOLOGY AND GENOMIC MEDICINE Monocytes 7.8 0.0 - 10.0 % [facility] DEPARTMENT OF PATHOLOGY AND GENOMIC MEDICINE Eosinophils 0.9 0.0 - 5.0 % [facility] DEPARTMENT OF PATHOLOGY AND GENOMIC MEDICINE Basophils 0.4 0.0 - 1.0 % [facility] DEPARTMENT OF PATHOLOGY AND GENOMIC MEDICINE Immature granulocytes 0.8Comment: 0.0 - 1.0 % [facility] DEPARTMENT OF "Immature PATHOLOGY AND GENOMIC granulocytes" MEDICINE (promyelocytes, myelocytes, metamyelocytes) Specimen Blood Performing Organization Address City/[facility] Phone Number [facility] DEPARTMENT PATHOLOGY AND [address] [place] [address] [facility] Basic metabolic panel (01/25/2018 5:50 AM CDT) Sodium 137 135 - 148 mEq/L [facility] DEPARTMENT OF PATHOLOGY AND GENOMIC MEDICINE Potassium 3.9 3.5 - 5.0 mEq/L [facility] DEPARTMENT OF PATHOLOGY AND GENOMIC MEDICINE Chloride 98 98 - 112 mEq/L [facility] DEPARTMENT OF PATHOLOGY AND GENOMIC MEDICINE CO2 26 24 - 31 mEq/L [facility] DEPARTMENT OF PATHOLOGY AND GENOMIC MEDICINE Anion gap 13@ANIO 7 - 15 mEq/L [facility] DEPARTMENT OF PATHOLOGY AND GENOMIC MEDICINE BUN 16 6 - 20 mg/dL [facility] DEPARTMENT OF PATHOLOGY AND GENOMIC MEDICINE Creatinine 0.9 0.7 - 1.2 mg/dL [facility] DEPARTMENT OF PATHOLOGY AND GENOMIC MEDICINE Glucose 154 (H) 65 - 99 mg/dL [facility] DEPARTMENT OF PATHOLOGY AND GENOMIC MEDICINE Calcium 9.7 8.3 - 10.2 mg/dL [facility] DEPARTMENT OF PATHOLOGY AND GENOMIC MEDICINE Specimen Plasma specimen Performing Organization Address [facility] Phone Number [facility] DEPARTMENT PATHOLOGY AND [address] [place] [address] [facility] ECG 12 lead (01/24/2018 7:11 PM CDT) Ventricular rate 94 [facility] MUSE Atrial rate 94 [facility] MUSE WI interval 162 [facility] MUSE QRSD interval 146 [facility] MUSE QT interval 414 [facility] MUSE QTC interval 517 [facility] MUSE P axis 1 33 HM MUSE QRS axis 1 -16 [facility] MUSE T wave axis 17 [facility] MUSE EKG impression Normal sinus rhythm-Right bundle branch block-Lateral infarct ( cited on or before 30-JUL-2017)-Inferior infarct (cited on or before 27-JUL-2017 )-Abnormal ECG-In automated comparison with ECG of 30-JUL-2017 09:06,-No significant change was [facility] MUSE found- Performing Organization Address City/State/Zipcode Phone Number [facility] MUSE [address] [place] [address] after 10/05/2017 Insurance Payer Benefit Plan / Group Subscriber ID Type Phone Address COMMERCIAL MISC MISC COMMERCIAL xxxxxxxxxxxx Commercial MISC MEDICAID MISC MEDICAID xxxxxxxxxxxx HMO REPLACEMENT REPLACEMENT Advance Directives Patient has advance care planning documents, and code status on file. For more information, please contact:Rene [address] [place] [id number] Code Status Date Activated Date Inactivated Comments Full Code 01/24/2018 5:07 PM 01/29/2018 3:21 PM Code Status decision reached by: Patient Full Code 07/27/2017 10:23 AM 07/31/2017 4:58 PM Code Status decision reached by: Patient Full Code 07/27/2017 5:07 AM 07/27/2017 10:23 AM Code Status decision reached by: Patient
--- OUTSIDE RECORDS SUMMARY | 2018-10-06 00:12 | XMS REPORT | Continuity of Care Document ---
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 [place] Congestive heart Resolved Problem 05/20/2016 2L fluid failure<sup>1</sup> restrictio [place] n/24hrs Diabetes Resolved Problem 05/20/2016 [facility] Hypercholesteremia Resolved Problem 05/20/2016 [facility] Hypertension Resolved Problem 05/20/2016 [facility] Kidney stone Resolved Problem 05/20/2016 [facility] Heart Resolved Problem 05/20/2016 December 04, attack<sup>2</sup> 2016 [place] Bundle branch block, Resolved Problem 05/20/2016 right [place] Sleep apnea Resolved Problem 05/20/2016 [facility] TUBULO-INTERSTITIAL Active [facility] NEPHRITIS, NOT S[facility] [place] CHEST PAIN, Active [facility] UNSPECIFIED [place] Medications Medication Details Route Status Patient Ordering Order Source Instructions Provider Date Aspirin 81 mg, 1 tab, Inactive Route: PO, Drug 2015 [place] form: ECTAB, ONCE, Dosing Weight 128.636, kg, Priority: STAT, Start date: 05/17/16 17:16:00 NEW [employer], Stop date: 05/17/16 17:16:00 CSTNotes: Do not crush or chew. (Same As: Ecotrin) Saline Flush 10 mL, Route: Inactive 0.9% IVP, Drug Form: 2015 [place] INJ, Dosing Weight 128.636, kg, PRN, PRN Line Flush, Start date: 05/17/16 15:48:00 NEW [employer], Duration: 30 day, Stop date: 06/16/16 15:47:00 CSTNotes: (Same as: BD Posiflush) Plavix 75 mg, 1 tab, No Longer Route: PO, Drug Active 2015 [place] form: TAB, Daily, Dosing Weight 131.7, kg, Start date: 05/07/16 9:00:00 NEW [employer], Duration: 30 day, Stop date: 06/05/16 9:00:00 CSTNotes: (Same As: Plavix) metoprolol 25 mg 25 mg=1 tab, PO, Active oral tablet, Daily, # 30 tab, 2015 [place] extended release 0 Refill(s) Protonix 40 mg, 1 tab, Inactive Route: PO, Drug 2015 [place] form: ECTAB, Before Dinner, Dosing Weight 131.7, kg, Start date: 05/06/16 16:30:00 NEW [employer], Duration: 30 day, Stop date: 06/04/16 16:30:00 CSTNotes: Tablet should not be chewed or crushed. (Same as: Protonix) Lisinopril 2.5 mg, 0.5 tab, Inactive Route: PO, Drug 2015 [place] form: TAB, Daily, Dosing Weight 131.7, kg, Start date: 05/06/16 9:00:00 NEW [employer], Duration: 30 day, Stop date: 06/04/16 9:00:00 CSTNotes: (Same as: Prinivil, Zestril) Aspirin 325 MG 325 mg, 1 tab, Inactive Oral Tablet Route: PO, Drug 2015 [place] form: TAB, Daily, Dosing Weight 127.273, kg, Start date: 05/06/16 9:00:00 NEW [employer], Duration: 30 day, Stop date: 06/04/16 9:00:00 CSTNotes: Take with food. atorvastatin 40 40 mg=1 tab, PO, Active mg oral tablet Bedtime, # 90 2015 [place] tab, 1 Refill(s) Alprazolam 1 MG 1 mg, 2 tab, No Longer Oral Tablet Route: PO, Drug Active 2015 [place] [Xanax] form: TAB, Q8H, Dosing Weight 131.7, kg, PRN Anxiety, Start date: 05/05/16 22:49:00 NEW [employer], Duration: 30 day, Stop date: 06/04/16 22:48:00 CSTNotes: With food or milk (Same as: Xanax) Lipitor 80 mg, 2 tab, No Longer Route: PO, Drug Active 2015 [place] form: TAB, Bedtime, Dosing Weight 127.273, kg, Start date: 05/05/16 21:00:00 NEW [employer], Duration: 30 day, Stop date: 06/03/16 21:00:00 CSTNotes: (Same as: Lipitor) Clindamycin 300 mg, 2 cap, No Longer Route: PO, Drug Active 2015 [place] form: CAP, ABXQ6H, Dosing Weight 127.273, kg, Start date: 05/05/16 21:00:00 NEW [employer], Stop date: 06/04/16 15:00:00 CSTNotes: (Same As: Cleocin) Saline Flush 10 ml, Route: No Longer 0.9% IVP, Drug Form: Active 2015 [place] INJ, Dosing Weight 127.273, kg, Q12H, Start date: 05/05/16 21:00:00 NEW [employer], Duration: 30 day, Stop date: 06/04/16 9:00:00 CSTNotes: preservative free. Insulin, Aspart, 1 unit, 0.01 mL, No Longer Human Route: SUB-Q, Active 2015 [place] Drug form: SOLN, Bedtime, Dosing Weight 127.273, kg, PRN Blood Glucose Results, Start date: 05/05/16 20:27:00 NEW [employer], Duration: 30 day, Stop date: 06/04/16 20:26:00 CSTNotes: Roll in palms of hands gently; Do not shake vigorously. (Same as: NovoLOG) "single patient use only" WASTE: F/P - Black; E - Municipal Trash Bin Stable for 28 days at room temperature. Expires in days from Da te Glucagon 1 mg, Route: IM, No Longer Drug form: Active 2015 [place] PDR/INJ, PRN, Dosing Weight 127.273, kg, PRN Blood Glucose Results, Start date: 05/05/16 20:27:00 NEW [employer], Duration: 30 day, Stop date: 06/04/16 20:26:00 NEW [employer]IVER Dextrose 50% 12.5 gm, 25 mL, No Longer Syringe Route: IVP, Drug Active 2015 [place] Form: INJ, Dosing Weight 127.273, kg, PRN, PRN Blood Glucose Results, Start date: 05/05/16 20:27:00 NEW [employer], Duration: 30 day, Stop date: 06/04/16 20:26:00 NEW [employer] DEL[employer]IVER Morphine 2 mg, 1 mL, No Longer Route: IVP, Drug Active 2015 [place] form: INJ, Q2H, Dosing Weight 127.273, kg, PRN as needed for chest pain, Priority: STAT, Start date: 05/05/16 20:00:00 NEW [employer], Duration: 30 day, Stop date: 06/04/16 19:59:00 CSTNotes: (Same as:MORPhine Sulfate) Plavix 75 mg, 1 tab, Inactive Route: PO, Drug 2015 [place] form: TAB, ONCE, Dosing Weight 127.273, kg, Priority: STAT, Start date: 05/05/16 19:58:00 NEW [employer], Stop date: 05/05/16 19:58:00 CSTNotes: (Same As: Plavix) Saline Flush 10 ml, Route: No Longer 0.9% IVP, Drug Form: Active 2015 [place] INJ, Dosing Weight 127.273, kg, PRN, PRN Line Flush, Start date: 05/05/16 19:55:00 NEW [employer], Duration: 30 day, Stop date: 06/04/16 19:54:00 CSTNotes: (Same as: BD Posiflush) Albuterol 0.833 3 ml, Route: No Longer MG/ML / NEB, Drug Form: Active 2015 [place] Ipratropium SOLN, Dosing [place] 0.167 Weight 127.273, MG/ML Inhalant kg, PRN, PRN Solution Respiratory Protocol, Start date: 05/05/16 19:55:00 NEW [employer], Duration: 30 day, Stop date: 06/04/16 19:54:00 CSTNotes: (Same as: Duoneb) Nystatin 100 1 appl, Route: No Longer UNT/MG Topical TOP, PRN, Drug Active 2015 [place] Powder form: PWDR, PRN For Fungal Prophylaxis, Start date: 05/05/16 19:55:00 NEW [employer] DEL[employer] DRIVER, Duration: 30 day, Stop date: 06/04/16 19:54:00 [...] Volume: 500 mL, Start date: 05/05/16 19:43:00 NEW [employer] DEL[employer]IVER, Duration: 30 day, Stop date: 06/04/16 19:42:00 NEW [employer] DEL[employer]IVER Heparin 60 Route: IVP, PRN, No Longer unit/kg Bolus 5,800 unit, 5.8 Active 2015 [place] (Heparin Dosing mL, Drug form: Weight) INJ, PRN, Heparin Protocol, Start date: 05/05/16 19:43:00 NEW [employer] DEL[employer] DRIVER Stop date: 06/04/16 19:42:00 NEW [employer] DEL[employer] DRIVER Heparin 30 Route: IVP, PRN, No Longer unit/kg Bolus 2,900 unit, 2.9 Active 2015 [place] (Heparin Dosing mL, Drug form: Weight) INJ, PRN, Heparin Protocol, Start date: 05/05/16 19:43:00 NEW [employer] DEL[employer]IVER Stop date: 06/04/16 19:42:00 NEW [employer] DRIVER Heparin - one 4,000 unit, 4 Inactive time bolus for mL, Route: IVP, 2016 [place] ACS Drug form: INJ, ONCE, Dosing Weight 127.273, kg, Priority: STAT, Start date: 05/05/16 19:43:00 NEW [employer]IVER, Stop date: 05/05/16 19:43:00 NEW [employer] DELIV[employer] DRIVER Morphine 4 mg, 1 mL, Inactive Route: IVP, Drug 2015 [place] form: INJ, ONCE, Dosing Weight 127.273, kg, Priority: STAT, Start date: 05/05/16 19:25:00 NEW [employer] DEL[employer] DRIVER, Stop date: 05/05/16 19:25:00 CSTNotes: (Same as:MORPhine Sulfate) Nitroglycerin 1 inch, Route: Inactive 0.02 MG/MG TOP, Dosing 2015 [place] Topical Ointment Weight 127.273, kg, ONCE, STAT, Start date: 05/05/16 17:40:00 NEW [employer] DRIVER, Stop date: 05/05/16 17:40:00 NEW [employer] DEL[employer] DRIVER Aspirin 81 MG 243 mg, Route: Inactive Chewable Tablet PO, Drug form: 2015 [place] CHEWTAB, ONCE, Dosing Weight 127.273, kg, Priority: STAT, Start date: 05/05/16 17:17:00 NEW [employer] DEL[employer] DRIVER, Stop date: 05/05/16 17:17:00 NEW [employer] DEL[employer] DRIVER Morphine 4 mg, Route: Inactive IVP, ONCE, 2015 [place] Dosing Weight 127.273, kg, Priority: STAT, Start date: 05/05/16 17:15:00 NEW [employer] DEL[employer] DRIVER, Stop date: 05/05/16 17:15:00 NEW [employer] DEL[employer] DRIVER Saline Flush 10 mL, Route: No Longer 0.9% IVP, Drug Form: Active 2015 [place] INJ, Dosing Weight 128.182, kg, PRN, PRN Line Flush, Start date: 05/05/16 16:55:00 NEW [employer]IVER, Duration: 30 day, Stop date: 06/04/16 16:54:00 CSTNotes: preservative free. Acetaminophen 1 - 2 tab, PO, No Longer 300 MG / Codeine Q4H, PRN Pain, X Active 2015 [place] Phosphate 30 MG 2 day, # 20 tab, Oral Tablet 0 Refill(s) [Tylenol with Codeine #3] Morphine 4 mg, 1 mL, Inactive Route: IVP, Drug 2015 [place] form: INJ, ONCE, Dosing Weight 128.182, kg, Priority: STAT, Start date: 04/25/16 19:51:00 CDT, Stop date: 04/25/16 19:51:00 CDTNotes: (Same as:MORPhine Sulfate) Zofran 4 mg, 2 mL, Inactive Route: IVP, Drug 2015 [place] form: INJ, ONCE, Dosing Weight 128.182, kg, Priority: STAT, Start date: 04/25/16 18:23:00 CDT, Stop date: 04/25/16 18:23:00 CDTNotes: (Same as: Zofran) MEDICATION WASTE Product Size: 4 mg Product Wasted: ___ mg Morphine 4 mg, 1 mL, Inactive Route: IVP, Drug 2015 [place] form: INJ, ONCE, Dosing Weight 128.182, kg, Priority: STAT, Start date: 04/25/16 18:23:00 CDT, Stop date: 04/25/16 18:23:00 CDTNotes: (Same as:MORPhine Sulfate) Saline Flush 10 mL, Route: Inactive 0.9% IVP, Drug Form: 2015 [place] INJ, Dosing Weight 129.091, kg, PRN, PRN Line Flush, Start date: 04/25/16 18:07:00 CDT, Duration: 30 day, Stop date: 05/25/16 17:06:00 CSTNotes: (Same as: BD Posiflush) Acetaminophen 1 tab, PO, Q6H, Active 300 MG / Codeine PRN Pain, X 5 2015 [place] Phosphate 30 MG day, # 20 tab, 0 Oral Tablet Refill(s) Morphine 4 mg, Route: Inactive IVP, ONCE, 2015 [place] Dosing Weight 129.091, kg, Priority: STAT, Start date: 03/05/16 8:44:00 CDT, Stop date: 03/05/16 8:44:00 CDT Ondansetron 4 mg, Route: Inactive IVP, Drug form: 2015 [place] INJ, ONCE, Dosing Weight 129.091, kg, Priority: STAT, Start date: 03/05/16 7:35:00 CDT, Stop date: 03/05/16 7:35:00 CDT Aspirin 324 mg, Route: Inactive PO, ONCE, Dosing 2015 [place] Weight 129.091, kg, Priority: STAT, Start date: 03/05/16 7:22:00 CDT, Stop date: 03/05/16 7:22:00 CDT Morphine 2 mg, Route: Inactive IVP, ONCE, 2015 [place] Dosing Weight 129.091, kg, Priority: STAT, Start date: 03/05/16 7:22:00 CDT, Stop date: 03/05/16 7:22:00 CDT Saline Flush 10 mL, Route: Inactive 0.9% IVP, Drug Form: 2015 [place] INJ, Dosing Weight 129.091, kg, PRN, PRN Line Flush, Start date: 03/05/16 7:22:00 CDT, Duration: 30 day, Stop date: 04/04/16 7:21:00 CDTNotes: (Same as: BD Posiflush) Dilaudid 0.5 mg, 0.5 mL, Inactive Route: IVP, Drug 2015 [place] form: INJ, ONCE, Dosing Weight 128.636, kg, Priority: STAT, Start date: 03/02/16 7:40:00 CDT, Stop date: 03/02/16 7:40:00 CDTNotes: Same as: Dilaudid Ketorolac 30 mg, 1 mL, Inactive Route: IVP, Drug 2015 [place] form: INJ, ONCE, Dosing Weight 128.636, kg, Priority: STAT, Start date: 03/02/16 5:25:00 CDT, Stop date: 03/02/16 5:25:00 CDTNotes: (Same as:Toradol) IV bolus must be given >15 seconds. Give IM administration slowly and deeply into the muscle. Not for use > 4 days MEDICATION WASTE Product Size: 30 mg Product Wasted: ___ mg Morphine 4 mg, 1 mL, Inactive Route: IVP, Drug 2015 [place] form: INJ, ONCE, Dosing Weight 128.636, kg, Priority: STAT, Start date: 03/02/16 5:25:00 CDT, Stop date: 03/02/16 5:25:00 CDTNotes: (Same as:MORPhine Sulfate) Ondansetron 4 mg, 2 mL, Inactive Route: IVP, Drug 2015 [place] form: INJ, ONCE, Dosing Weight 128.636, kg, Priority: STAT, Start date: 03/02/16 5:25:00 CDT, Stop date: 03/02/16 5:25:00 CDTNotes: (Same as: Zofran) MEDICATION WASTE Product Size: 4 mg Product Wasted: ___ mg Saline Flush 10 mL, Route: Inactive 0.9% IVP, Drug Form: 2015 [place] INJ, Dosing Weight 128.636, kg, PRN, PRN Line Flush, Start date: 03/02/16 5:25:00 CDT, Duration: 30 day, Stop date: 04/01/16 5:24:00 CDTNotes: (Same as: BD Posiflush) Sodium Chloride 1,000 mL, 2,000 Inactive 0.154 MEQ/ML ml/hr, Infuse 2015 [place] Injectable Over: 30 Solution minutes, Route: IV, 1,000, Drug form: INJ, ONCE, Priority: STAT, Dosing Weight 128.636 kg, Start date: 03/02/16 5:25:00 CDT, Duration: 1 doses or times, Stop date: 03/02/16 5:25:00 CDT Acetaminophen 1 tab, PO, Q6H, Active 300 MG / Codeine PRN Pain, # 28 2015 [place] Phosphate 30 MG tab, 0 Refill(s) Oral Tablet [Tylenol with Codeine #3] Protonix 40 mg, 1 tab, No Longer Route: PO, Drug Active 2015 [place] form: ECTAB, Before Breakfast, Dosing Weight 129.545, kg, Start date: 02/18/16 7:30:00 CDT, Duration: 30 day, Stop date: 03/18/16 7:30:00 CDTNotes: Tablet should not be chewed or crushed. (Same as: Protonix) Lipitor 80 mg, 2 tab, No Longer Route: PO, Drug Active 2015 [place] form: TAB, Bedtime, Dosing Weight 129.545, kg, Start date: 02/17/16 21:00:00 CDT, Duration: 30 day, Stop date: 03/17/16 21:00:00 CDTNotes: (Same as: Lipitor) Morphine 2 mg, 1 mL, No Longer Route: IVP, Drug Active 2015 [place] form: INJ, Q4H, Dosing Weight 129.545, kg, PRN Pain Score 7-10, Start date: 02/17/16 11:54:00 CDT, Duration: 30 day, Stop date: 03/18/16 11:53:00 CDTNotes: (Same as:MORPhine Sulfate) Lovenox 40 mg, 0.4 mL, No Longer Route: SUB-Q, Active 2015 [place] Drug form: INJ, [id number], Dosing Weight 129.545, kg, Start date: 02/17/16 10:00:00 CDT, Duration: 30 day, Stop date: 03/17/16 10:00:00 CDTNotes: (Same as: Lovenox) Lisinopril 2.5 mg, 0.5 tab, No Longer Route: PO, Drug Active 2015 [place] form: TAB, Daily, Dosing Weight 129.545, kg, Start date: 02/17/16 9:55:00 CDT, Duration: 30 day, Stop date: 03/18/16 9:00:00 CDTNotes: (Same as: Prinivil, Zestril) Imdur 30 mg, 1 tab, No Longer Route: PO, Drug Active 2015 [place] form: ERTAB, QAM, Dosing Weight 129.545, kg, Start date: 02/17/16 9:54:00 CDT, Duration: 30 day, Stop date: 03/18/16 9:00:00 CDTNotes: (Same as:Imdur) "Do Not Crush" Take on empty stomach/ full glass of water. Do not crush Plavix 75 mg, 1 tab, No Longer Route: PO, Drug Active 2015 [place] form: TAB, Daily, Dosing Weight 129.545, kg, Start date: 02/17/16 9:54:00 CDT, Duration: 30 day, Stop date: 03/18/16 9:00:00 CDTNotes: (Same As: Plavix) Aspirin 81 MG 81 mg, 1 tab, No Longer Enteric Coated Route: PO, Drug Active 2015 [place] Tablet form: ECTAB, Daily, Dosing Weight 129.545, kg, Start date: 02/17/16 9:54:00 CDT, Duration: 30 day, Stop date: 03/18/16 9:00:00 CDTNotes: Do not crush or chew. (Same As: Ecotrin) Zofran ODT 4 mg, 1 tab, No Longer Route: PO, Drug Active 2015 [place] form: TABDIS, Q12H, Dosing Weight 129.545, kg, PRN Nausea, Start date: 02/17/16 9:25:00 CDT, Duration: 30 day, Stop date: 03/18/16 9:24:00 CDTNotes: (Same as: Zofran ODT) Nitroglycerin 0.4 mg, 1 tab, No Longer 0.4 MG Route: SL, Drug Active 2015 [place] Sublingual form: TAB, Tablet Q5Min, Dosing [Nitrostat] Weight 129.545, kg, PRN Chest Pain, Start date: 02/17/16 9:25:00 CDT, Duration: 30 day, Stop date: 03/18/16 9:24:00 CDTNotes: (Same as:Nitroquick, Nitrostat) "Do Not Crush" Sublingual tablet Alprazolam 1 MG 1 mg, 1 tab, No Longer Oral Tablet Route: PO, Drug Active 2015 [place] [Xanax] form: TAB, Q8H, Dosing Weight 129.545, kg, PRN Anxiety, Start date: 02/17/16 9:23:00 CDT, Duration: 30 day, Stop date: 03/18/16 9:22:00 CDTNotes: With food or milk (Same as: Xanax) pneumococcal 0.5 mL, Route: Inactive capsular IM, Drug Form: 2016 [place] polysaccharide INJ, Daily, type 1 vaccine / [...] No Longer Disintegrating Q12H, PRN Active 2015 [place] Tablet [Zofran] Nausea, 0 Refill(s) Aspirin 81 MG 81 mg=1 tab, PO, Active Enteric Coated Daily, # 90 tab, 2015 [place] Tablet 3 Refill(s) Nitroglycerin 0.4 mg=1 tab, No Longer 0.4 MG SL, Q5Min, PRN Active 2015 [place] Sublingual Chest Pain, # Tablet 100 tab, 0 [Nitrostat] Refill(s) pantoprazole 40 40 mg=1 tab, PO, Active MG Enteric Daily, # 30 tab, 2016 [place] Coated Tablet 0 Refill(s) [Protonix] 24 HR Isosorbide 30 mg=1 tab, PO, Active Mononitrate 30 QAM, # 30 tab, 0 2015 [place] MG Extended Refill(s) Release Tablet [Imdur] Hydroxyzine 25 mg=1 tab, PO, No Longer Hydrochloride 25 Bedtime, PRN Active 2016 [place] MG Oral Tablet Sleep, # 30 tab, 0 Refill(s) Furosemide 20 MG 20 mg=1 tab, PO, Active Oral Tablet Daily, # 30 tab, 2016 [place] 0 Refill(s) Potassium 20 mEq=1 tab, Active Chloride 20 MEQ PO, Daily, # 90 2016 [place] Extended Release tab, 1 Refill(s) Tablet [Klor-Con] Alprazolam 1 MG 1 mg=1 tab, PO, Active Oral Tablet Q8H, PRN 2016 [place] [Xanax] Anxiety, 0 Refill(s) Metformin 1 tab, PO, BID, Active hydrochloride # 60 tab, 0 2015 [place] 500 MG / Refill(s) repaglinide 1 MG Oral Tablet Acetaminophen 1 tab, PO, Q6H, No Longer 300 MG / Codeine PRN Pain, # 28 Active 2016 [place] Phosphate 30 MG tab, 0 Refill(s) Oral Tablet [Tylenol with Codeine #3] lisinopril 2.5 2.5 mg=1 tab, Active mg oral tablet PO, Daily, # 30 2016 [place] tab, 0 Refill(s) clopidogrel 75 75 mg=1 tab, PO, Active MG Oral Tablet Daily, # 30 tab, 2016 [place] [Plavix] 0 Refill(s) atorvastatin 80 80 mg=1 tab, PO, Active MG Oral Tablet Bedtime, # 30 2016 [place] [Lipitor] tab, 0 Refill(s) Ceftriaxone 1 gm, Route: Inactive IVPB, Drug form: 2015 [place] PDR/INJ, ONCE, Dosing Weight 129.545, kg, Priority: STAT, Start date: 02/17/16 7:01:00 CDT, Stop date: 02/17/16 7:01:00 CDT Dilaudid 0.5 mg, Route: Inactive IVP, ONCE, 2015 [place] Dosing Weight 129.545, kg, Priority: STAT, Start date: 02/17/16 6:28:00 CDT, Stop date: 02/17/16 6:28:00 CDT Zofran 4 mg, Route: Inactive IVP, Drug form: 2015 [place] INJ, ONCE, Dosing Weight 129.545, kg, Priority: STAT, Start date: 02/17/16 5:32:00 CDT, Stop date: 02/17/16 5:32:00 CDT Dilaudid 0.5 mg, Route: Inactive IVP, ONCE, 2015 [place] Dosing Weight 129.545, kg, Priority: STAT, Start date: 02/17/16 5:32:00 CDT, Stop date: 02/17/16 5:32:00 CDT Saline Flush 10 mL, Route: Inactive 0.9% IVP, Drug Form: 2015 [place] INJ, kg, PRN, PRN Line Flush, Start date: 02/17/16 5:19:00 CDT, Duration: 30 day, Stop date: 03/18/16 5:18:00 CDTNotes: (Same as: BD Posiflush) Allergies, Adverse Reactions, Alerts Substance Category Reaction Severity Reaction Status Date Comments Source type Reported beta Assertion Drug Active blockers allergy [place] Flomax Assertion Drug Active allergy [place] Stadol Assertion Drug Active MH allergy [place] traMADol Assertion Drug Active MH allergy [place] Immunizations Immunization Date Given Site Status Last Updated Comments Source pneumococcal 02/17/2016 Not Given [facility] 23-valent vaccine Results Order Name Results Value Reference Date Interpretation Comments Source Range URINE AND UA Mucus Few /LPF None Seen 05/17 STOOL /LPF [place] URINE AND UA Leuk Est Negative Negative 05/17 STOOL [place] (05/17/16 5:16 PM) URINE AND UA Bili Negative Negative 05/17 STOOL [place] *NA* (05/17/16 5:16 PM) URINE AND UA Ketones Negative Negative 05/17 STOOL mg/dL mg/dL [place] URINE AND UA Nitrite Negative Negative 05/17 STOOL [place] (05/17/16 5:16 PM) URINE AND UA 0.2 EU/dL 0.1 - 1.0 05/17 STOOL Urobilinogen [place] URINE AND UA Turbidity Clear Clear 05/17 STOOL [place] (05/17/16 5:16 PM) URINE AND UA Blood Negative Negative 05/17 STOOL [place] (05/17/16 5:16 PM) URINE AND UA Glucose Negative Negative 05/17 [facility]OL mg/dL mg/dL [place] URINE AND UA Protein Negative Negative 05/17 [facility]OOL mg/dL mg/dL [place] URINE AND UA pH 6.5 5.0 - 8.0 05/17 STOOL [place] URINE AND UA Spec Grav 1.020 <=1.030 05/17 STOOL [place] URINE AND UA Color Yellow Yellow 05/17 STOOL [place] *NA* (05/17/16 5:16 PM) URINE AND UA Sq Epi Rare /LPF Few /LPF 05/17 STOOL [place] URINE AND UA Bacteria Occasional None Seen 05/17 STOOL /HPF /HPF [place] URINE AND UA RBC 0-2 /HPF 0 - 2 05/17 STOOL [place] URINE AND UA WBC 0-2 /HPF None Seen 05/17 STOOL /HPF /2015 [place] CARDIAC Total CK 74 unit/L 12 - 191 05/17 ENZYMES [place] CARDIAC CK MB 0.8 ng/mL 0.5 - 3.6 05/17 ENZYMES [place] CARDIAC Troponin-I null 0.00 - 05/17 ENZYMES 0.40 [place] CARDIAC CK-MB INDEX 1.1 0.0 - 2.5 05/17 [place] CHEM PANEL eGFR 79 05/17 Result Comment: [...] is not recommended in the following populations: [place] 3m2 Individuals with unstable creatinine concentrations, including [...] Lvl 106 meq/L 95 - 109 05/17 [place] CHEM PANEL CO2 28 meq/L 24 - 32 05/17 [place] CHEM PANEL Calcium Lvl 8.8 mg/dL 8.5 - 10.5 05/17 [place] CHEM PANEL Bili Total 0.4 mg/dL 0.2 - 1.3 05/17 [place] CHEM PANEL AGAP 9.7 meq/L 10.0 - 05/17 20.0 [place] CHEM PANEL B/C Ratio 14 6 - 25 05/17 [place] CHEM PANEL ASPARTATE 14 unit/L 0 - 37 05/17 MH [place] CHEM PANEL Total 7.7 g/dL 6.4 - 8.4 05/17 [place] CHEM PANEL Globulin 4.4 g/dL 2.7 - 4.2 05/17 [place] CHEM PANEL A/G Ratio 0.8 0.7 - 1.6 11 [place] CHEM PANEL Glucose Lvl 148 mg/dL 70 - 99 05/17 [place] CHEM PANEL BUN 15 mg/dL 7 - 22 05/17 [place] CHEM PANEL Creatinine 1.11 mg/dL 0.50 - 05/17 MH Lvl 1.40 [place] CHEM PANEL Sodium Lvl 140 meq/L 135 - 145 05/17 [place] CHEM PANEL Potassium 3.7 meq/L 3.5 - 5.1 05/17 MH Lvl [place] CHEM PANEL Albumin Lvl 3.3 g/dL 3.5 - 5.0 05/17 [place] CHEM PANEL Alk Phos 129 unit/L 39 - 136 05/17 [place] CHEM PANEL ALANINE 30 unit/L 0 - 65 05/17 AMINOTRANS [place] RAS HEMATOLOGY MPV 7.3 fL 7.4 - 10.4 05/17 [place] HEMATOLOGY Platelet 281 K/CMM 133 - 450 05/17 [place] HEMATOLOGY RBC X 10x6 5.30 M/CMM 4.70 - 05/17 MH 6.10 [place] HEMATOLOGY WBC X 10x3 10.5 K/CMM 3.7 - 10.4 05/17 [place] HEMATOLOGY Hgb 12.4 g/dL 14.0 - 05/17 MH 18.0 [place] HEMATOLOGY Hct 36.8 % 42.0 - 05/17 MH 54.0 [place] HEMATOLOGY MCV 69.4 fL 80.0 - 05/17 MH 94.0 [place] HEMATOLOGY MCH 23.4 pg 27.0 - 05/17 MH 31.0 [place] HEMATOLOGY MCHC 33.7 g/dL 32.0 - 05/17 MH 36.0 /2015 [place] HEMATOLOGY RDW 17.1 % 11.5 - 05/17 MH 14.5 /2015 [place] HEMATOLOGY aPTT 35.4 s 22.9 - 05/17 35.8 /2015 [place] HEMATOLOGY PROTIME 13.1 s 12.0 - 05/17 MH 14.7 /2015 [place] HEMATOLOGY INR 0.97 0.85 - 05/17 MH 1.17 /2015 [place] HEMATOLOGY Eosinophils 1.1 % 0.0 - 4.0 05/17 [place] HEMATOLOGY Monocytes 6.7 % 2.0 - 12.0 05/17 [place] HEMATOLOGY Segs-Bands # 7.2 K/CMM 1.5 - 8.1 05/17 [place] HEMATOLOGY Basophils 1.1 % 0.0 - 1.0 05/17 [place] HEMATOLOGY Lymphocytes 2.4 K/CMM 1.0 - 5.5 05/17 # /2015 [facility]EMAT[facility] Monocytes # 0.7 K/CMM 0.0 - 0.8 05/17 [facility]AT[facility] Eosinophils 0.1 K/CMM 0.0 - 0.5 05/17 # /2015 [facility]EMAT[facility] Microcyte 2+ None Seen 05/17 [facility] *ABN* (05/17/16 4:01 PM) HEMATOLOGY Basophils # 0.1 K/CMM 0.0 - 0.2 05/17 [facility]AT[facility] Lymphocytes 22.3 % 20.0 - 05/17 40.0 [facility]EMAT[facility] Segs 68.8 % 45.0 - 05/17 75.0 [facility] Chest 1view Chest 1view Portable chest: The cardiomediastinal silhouette and pulmonary vasculature are within normal limits. The lungs and pleural spaces are clear. There are no acute osseous abnormalities. There is no significant change compared to 05/05/2016. 05/17 - [facility] DX DX /2015 - [place] IMPRESSION: Read by: Rizwan Barnhart MD Dictated Date/time: 05/17/16 16:37 Electronically Signed by: Rizwan Barnhart MD 05/17/16 16:38 FINAL REPORT No acute radiographic abnormality in the chest. [id number] CARDIAC Troponin-I null 0.00 - 05/06 ENZYMES 0.40 [facility] aPTT 50.1 s 22.9 - 05/06 MH 35.8 2016 [facility] ELECTROLYTE AGAP 10.8 meq/L 10.0 - 05/06 S 20.0 [facility] ELECTROLYTE CO2 28 meq/L 24 - 32 05/06 S [facility] ELECTROLYTE Chloride Lvl 105 meq/L 95 - 109 05/06 S [facility] ELECTROLYTE Calcium Lvl 8.7 mg/dL 8.5 - 10.5 05/06 S [facility] ELECTROLYTE eGFR 103 05/06 Result Comment: The [...] is not recommended in the following populations: [address] Individuals with unstable creatinine concentrations, including [...] 123 mg/dL 70 - 99 05/06 S [facility] ELECTROLYTE Creatinine 0.86 mg/dL 0.50 - 05/06 S Lvl 1.40 [facility] ELECTROLYTE BUN 18 mg/dL 7 - 22 05/06 S [facility] ELECTROLYTE Potassium 3.8 meq/L 3.5 - 5.1 05/06 S Lvl [facility] ELECTROLYTE Sodium Lvl 140 meq/L 135 - 145 05/06 S [facility] HEMATOLOGY Microcyte 2+ None Seen 05/06 [facility] *ABN* (05/06/16 2:42 AM) HEMATOLOGY Eosinophils 0.2 K/CMM 0.0 - 0.5 05/06 # /2015 [facility] HEMATOLOGY Monocytes # 0.8 K/CMM 0.0 - 0.8 05/06 [facility] HEMATOLOGY Monocytes 7.9 % 2.0 - 12.0 05/06 [facility] HEMATOLOGY Lymphocytes 2.5 K/CMM 1.0 - 5.5 05/06 MH # /2016 [facility] HEMATOLOGY Segs-Bands # 6.5 K/CMM 1.5 - 8.1 05/06 [facility] HEMATOLOGY Basophils 0.4 % 0.0 - 1.0 05/06 MH [facility] HEMATOLOGY Eosinophils 1.7 % 0.0 - 4.0 05/06 /2015 [facility] HEMATOLOGY Lymphocytes 24.8 % 20.0 - 05/06 MH 40.0 [facility] HEMATOLOGY Segs 65.2 % 45.0 - 05/06 MH 75.0 [facility] HEMATOLOGY RBC X 10x6 5.11 M/CMM 4.70 - 05/06 MH 6.10 [facility] HEMATOLOGY Hct 36.2 % 42.0 - 05/06 MH 54.0 [facility] HEMATOLOGY Hgb 11.8 g/dL 14.0 - 05/06 MH 18.0 [facility] HEMATOLOGY Platelet 272 K/CMM 133 - 450 05/06 [facility] HEMATOLOGY RDW 17.1 % 11.5 - 05/06 14. [facility] HEMATOLOGY MPV 7.8 fL 7.4 - 10.4 05/06 /2015 [facility] HEMATOLOGY WBC X 10x3 9.9 K/CMM 3.7 - 10.4 05/06 [facility] HEMATOLOGY MCHC 32.5 g/dL 32.0 - 05/06 MH 36.0 [facility] HEMATOLOGY MCH 23.0 pg 27.0 - 05/06 31.0 [facility] HEMATOLOGY MCV 70.8 fL 80.0 - 05/06 94.0 [facility] HEMATOLOGY PROTIME 13.4 s 12.0 - 05/06 14. [facility] HEMATOLOGY INR 1.00 0.85 - 05/06 MH 1.17 [facility] HEMATOLOGY aPTT 49.1 s 22.9 - 05/06 35.8 [facility] URINE AND UA Bacteria None Seen None Seen 05/06 STOOL [facility] (05/05/16 10:09 PM) URINE AND UA Blood Negative Negative 05/06 STOOL [facility] (05/05/16 10:09 PM) URINE AND UA RBC 0-2 /HPF 0 - 2 05/06 [facility] URINE AND UA WBC None Seen None Seen 05/06 STOOL [facility] (05/05/16 10:09 PM) URINE AND UA Sq Epi None Seen Few 05/06 STOOL [facility] (05/05/16 10:09 PM) URINE AND UA Leuk Est Negative Negative 05/06 STOOL [facility] (05/05/16 10:09 PM) URINE AND UA 0.2 EU/dL 0.1 - 1.0 05/06 STOOL Urobilinogen [facility] URINE AND UA Nitrite Negative Negative 05/06 STOOL [facility] (05/05/16 10:09 PM) URINE AND UA Color Yellow Yellow 05/06 [facility] *NA* (05/05/16 10:09 PM) URINE AND UA Glucose Negative Negative 05/06 STOOL [facility] (05/05/16 10:09 PM) URINE AND UA Bili Negative Negative 05/06 [facility] *NA* (05/05/16 10:09 PM) URINE AND UA Ketones Negative Negative 05/06 [facility] *NA* (05/05/16 10:09 PM) URINE AND UA Protein Negative Negative 05/06 STOOL [facility] (05/05/16 10:09 PM) URINE AND UA pH 6.0 5.0 - 8.0 05/06 [facility] URINE AND UA Turbidity Clear Clear 05/06 [facility] (05/05/16 10:09 PM) URINE AND UA Spec Grav >=1.030 <=1.030 05/06 [facility] *ABN* (05/05/16 10:09 PM) BACTERIAL - MRSA by PCR Negative 05/06 SEROLOGY [facility] (05/05/16 10:06 PM) HEMATOLOGY Basophils # 0.1 K/CMM 0.0 - 0.2 05/06 [facility] HEMATOLOGY Microcyte 2+ None Seen 05/06 [facility] *ABN* (05/05/16 9:38 PM) HEMATOLOGY Eosinophils 1.4 % 0.0 - 4.0 05/06 [facility] HEMATOLOGY Basophils 0.7 % 0.0 - 1.0 05/06 [facility] HEMATOLOGY Segs-Bands # 7.1 K/CMM 1.5 - 8.1 05/06 /2015 [facility] HEMATOLOGY Lymphocytes 24.8 % 20.0 - 05/06 MH 40.0 /2015 [facility] HEMATOLOGY Monocytes 7.9 % 2.0 - 12.0 05/06 /2015 [facility] HEMATOLOGY Monocytes # 0.9 K/CMM 0.0 - 0.8 05/06 /2015 [facility] HEMATOLOGY Eosinophils 0.2 K/CMM 0.0 - 0.5 05/06 MH # /2015 [facility] HEMATOLOGY Lymphocytes 2.7 K/CMM 1.0 - 5.5 05/06 MH # /2015 [facility] HEMATOLOGY Segs 65.2 % 45.0 - 05/06 MH 75.0 /2015 [facility] HEMATOLOGY MCV 69.7 fL 80.0 - 05/06 MH 94.0 [facility] HEMATOLOGY MCH 23.3 pg 27.0 - 05/06 MH 31.0 [facility] HEMATOLOGY Hgb 12.2 g/dL 14.0 - 05/06 MH 18.0 [facility] HEMATOLOGY Hct 36.5 % 42.0 - 05/06 MH 54.0 [facility] HEMATOLOGY MCHC 33.4 g/dL 32.0 - 05/06 MH 36.0 [facility] HEMATOLOGY Platelet 276 K/CMM 133 - 450 05/06 /2015 [facility] HEMATOLOGY MPV 7.2 fL 7.4 - 10.4 05/06 /2015 [facility] HEMATOLOGY RDW 17.5 % 11.5 - 05/06 MH 14. [facility] HEMATOLOGY WBC X 10x3 11.0 K/CMM 3.7 - 10.4 05/06 [facility] HEMATOLOGY RBC X 10x6 5.24 M/CMM 4.70 - 05/06 MH 6.10 [facility] HEMATOLOGY INR 1.05 0.85 - 05/06 MH 1.17 [facility] HEMATOLOGY PROTIME 13.9 s 12.0 - 05/06 14. [facility] HEMATOLOGY aPTT 35.3 s 22.9 - 05/06 MH 35.8 [facility] CARDIAC CK-MB INDEX 1.0 0.0 - 2.5 05/05 ENZYMES /2015 [facility] CARDIAC CK MB 0.8 ng/mL 0.5 - 3.6 05/05 ENZYMES /2015 [facility] CARDIAC Total CK 80 unit/L 12 - 191 05/05 ENZYMES [facility] CARDIAC Troponin-I null 0.00 - 05/05 ENZYMES 0.40 [facility] CHEM PANEL Alk Phos 133 unit/L 39 - 136 05/05 [facility] CHEM PANEL Glucose Lvl 137 mg/dL 70 - 99 05/05 [facility] CHEM PANEL BUN 17 mg/dL 7 - 22 05/05 [facility] CHEM PANEL Creatinine 1.01 mg/dL 0.50 - 05/05 MH Lvl 1.40 [facility] CHEM PANEL Sodium Lvl 139 meq/L 135 - 145 05/05 [facility] CHEM PANEL ALANINE 34 unit/L 0 - 65 05/05 AMINOTRANSFE [facility] RASE CHEM PANEL Albumin Lvl 3.3 g/dL 3.5 - 5.0 05/05 [facility] CHEM PANEL Chloride Lvl 105 meq/L 95 - 109 05/05 [facility] CHEM PANEL eGFR 88 05/05 Result Comment: [...] is not recommended in the following populations: [address] Individuals with unstable creatinine concentrations, including [...] Total 0.4 mg/dL 0.2 - 1.3 05/05 [facility] CHEM PANEL Calcium Lvl 8.6 mg/dL 8.5 - 10.5 05/05 [facility] CHEM PANEL Potassium 3.7 meq/L 3.5 - 5.1 05/05 Lvl [facility] CHEM PANEL CO2 28 meq/L 24 - 32 05/05 [facility] CHEM PANEL Total 7.8 g/dL 6.4 - 8.4 05/05 [facility] CHEM PANEL ASPARTATE 16 unit/L 0 - 37 05/05 [facility] CHEM PANEL AGAP 9.7 meq/L 10.0 - 05/05 MH 20.0 [facility] CHEM PANEL B/C Ratio 17 6 - 25 05/05 [facility] CHEM PANEL Globulin 4.5 g/dL 2.7 - 4.2 05/05 [facility] CHEM PANEL A/G Ratio 0.7 0.7 - 1.6 05/05 [facility] HEMATOLOGY Monocytes # 0.8 K/CMM 0.0 - 0.8 05/05 [facility] HEMATOLOGY Eosinophils 0.1 K/CMM 0.0 - 0.5 05/05 # [facility] HEMATOLOGY Basophils # 0.1 K/CMM 0.0 - 0.2 05/05 [facility] HEMATOLOGY Microcyte 2+ None Seen 05/05 [facility] *ABN* (05/05/16 5:11 PM) HEMATOLOGY Monocytes 7.5 % 2.0 - 12.0 05/05 [facility] HEMATOLOGY Eosinophils 1.1 % 0.0 - 4.0 05/05 [facility] HEMATOLOGY Basophils 0.7 % 0.0 - 1.0 05/05 [facility] HEMATOLOGY Segs-Bands # 7.5 K/CMM 1.5 - 8.1 05/05 [facility] HEMATOLOGY Lymphocytes 2.1 K/CMM 1.0 - 5.5 05/05 [facility] HEMATOLOGY Lymphocytes 19.9 % 20.0 - 05/05 MH 40.0 [facility] HEMATOLOGY Segs 70.8 % 45.0 - 05/05 MH 75.0 [facility] HEMATOLOGY Platelet 306 K/CMM 133 - 450 05/05 [facility] HEMATOLOGY MCHC 33.6 g/dL 32.0 - 05/05 MH 36.0 [facility] HEMATOLOGY MPV 7.3 fL 7.4 - 10.4 05/05 [facility] HEMATOLOGY RDW 16.9 % 11.5 - 05/05 MH 14. [facility] HEMATOLOGY MCV 69.5 fL 80.0 - 05/05 MH 94.0 [facility] HEMATOLOGY MCH 23.4 pg 27.0 - 05/05 MH 31.0 [facility] HEMATOLOGY Hct 37.4 % 42.0 - 05/05 MH 54.0 [facility] HEMATOLOGY Hgb 12.6 g/dL 14.0 - 05/05 MH 18.0 [facility] HEMATOLOGY WBC X 10x3 10.6 K/CMM 3.7 - 10.4 05/05 [facility] HEMATOLOGY RBC X 10x6 5.39 M/CMM 4.70 - 05/05 MH 6.10 [facility] Chest 1view Chest 1view EXAM: Chest 1view DX 05/05 - [facility] DX DX /2015 - [place] DATE: 05/05/2016 4:55 PM NEW [employer]IVER INDICATION: Chest pain Read by: Tito Farnsworth MD Dictated Date/time: 05/05/16 17:34 COMPARISON: 03/05/2016. Electronically Signed by: Tito Farnsworth MD 05/05/16 17:34 FINAL REPORT IMPRESSION: Stable mildly enlarged cardiac silhouette. Atherosclerotic thoracic aorta. No focal consolidation, significant pleural effusion or pneumothorax. SL: [id number] CHEM PANEL Globulin 4.2 g/dL 2.7 - 4.2 04/25 [facility] CHEM PANEL B/C Ratio 19 6 - 25 04/25 [facility] CHEM PANEL AGAP 9.9 meq/L 10.0 - 04/25 20.0 [facility] CHEM PANEL A/G Ratio 0.8 0.7 - 1.6 04/25 [facility] CHEM PANEL eGFR 100 04/25 Result Comment: [...] is not recommended in the following populations: [address] Individuals with unstable creatinine concentrations, including [...] Phos 128 unit/L 39 - 136 04/25 [facility] CHEM PANEL Albumin Lvl 3.4 g/dL 3.5 - 5.0 04/25 [facility] CHEM PANEL ALANINE 30 unit/L 0 - 65 04/25 AMINOTRANSFE [facility] RASE CHEM PANEL Total 7.6 g/dL 6.4 - 8.4 04/25 Protein [facility] CHEM PANEL Bili Total 0.3 mg/dL 0.2 - 1.3 04/25 [facility] CHEM PANEL ASPARTATE 14 unit/L 0 - 37 04/25 TRANSAMINASE [facility] CHEM PANEL CO2 26 meq/L 24 - 32 04/25 [facility] CHEM PANEL Calcium Lvl 8.7 mg/dL 8.5 - 10.5 04/25 [facility] CHEM PANEL Chloride Lvl 104 meq/L 95 - 109 04/25 [facility] CHEM PANEL Potassium 3.9 meq/L 3.5 - 5.1 04/25 MH Lvl /2015 [facility] CHEM PANEL Glucose Lvl 221 mg/dL 70 - 99 04/25 [facility] CHEM PANEL Sodium Lvl 136 meq/L 135 - 145 04/25 [facility] CHEM PANEL Creatinine 0.91 mg/dL 0.50 - 04/25 MH Lvl 1.40 [facility] CHEM PANEL BUN 17 mg/dL 7 - 22 04/25 [facility] HEMATOLOGY RBC X 10x6 5.40 M/CMM 4.70 - 04/25 MH 6.10 [facility] HEMATOLOGY WBC X 10x3 10.3 K/CMM 3.7 - 10.4 04/25 [facility] HEMATOLOGY Hgb 12.9 g/dL 14.0 - 04/25 MH 18.0 [facility] HEMATOLOGY MPV 7.2 fL 7.4 - 10.4 04/25 [facility] HEMATOLOGY RDW 16.8 % 11.5 - 04/25 MH 14. [facility] HEMATOLOGY Platelet 313 K/CMM 133 - 450 04/25 [facility] HEMATOLOGY MCH 23.8 pg 27.0 - 04/25 MH 31.0 [facility] HEMATOLOGY MCHC 34.0 g/dL 32.0 - 04/25 36.0 /2015 [facility] HEMATOLOGY Hct 37.9 % 42.0 - 04/25 MH 54.0 /2015 [facility] HEMATOLOGY MCV 70.1 fL 80.0 - 04/25 94.0 /2015 [facility] HEMATOLOGY Lymphocytes 2.3 K/CMM 1.0 - 5.5 04/25 MH # /2016 [facility] HEMATOLOGY Eosinophils 0.1 K/CMM 0.0 - 0.5 04/25 # /2015 [facility] HEMATOLOGY Monocytes # 0.6 K/CMM 0.0 - 0.8 04/25 [facility] HEMATOLOGY Basophils # 0.1 K/CMM 0.0 - 0.2 04/25 [facility] HEMATOLOGY Microcyte 2+ None Seen 04/25 [facility] *ABN* (04/25/16 6:17 PM) HEMATOLOGY Segs 69.2 % 45.0 - 04/25 MH 75.0 /2015 [facility] HEMATOLOGY Segs-Bands # 7.1 K/CMM 1.5 - 8.1 04/25 [facility] HEMATOLOGY Monocytes 6.1 % 2.0 - 12.0 04/25 [facility] HEMATOLOGY Basophils 1.1 % 0.0 - 1.0 04/25 [facility] HEMATOLOGY Eosinophils 1.1 % 0.0 - 4.0 04/25 [facility] HEMATOLOGY Lymphocytes 22.5 % 20.0 - 04/25 40.0 /2016 [facility] URINE AND UA WBC 0-2 /HPF None Seen 04/25 STOOL /HPF [facility] URINE AND UA RBC 0-2 /HPF 0 - 2 04/25 STOOL [facility] URINE AND UA Bacteria Occasional None Seen 04/25 [facility] /HPF /HPF [facility] URINE AND UA Leuk Est Negative Negative 04/25 STOOL [facility] (04/25/16 6:17 PM) URINE AND UA Sq Epi Occasional Few /LPF 04/25 STOOL /LPF /2015 [facility] URINE AND UA pH 6.0 5.0 - 8.0 04/25 [facility] URINE AND UA Protein Negative Negative 04/25 STOOL [facility] (04/25/16 6:17 PM) URINE AND UA Glucose 250 mg/dL Negative 04/25 STOOL mg/dL /2015 [facility] URINE AND UA Ketones Negative Negative 04/25 STOOL [facility] *NA* (04/25/16 6:17 PM) URINE AND UA Bili Negative Negative 04/25 [facility] *NA* (04/25/16 6:17 PM) URINE AND UA Blood Negative Negative 04/25 [facility] (04/25/16 6:17 PM) URINE AND UA 0.2 EU/dL 0.1 - 1.0 04/25 [facility] Urobilinogen [facility] URINE AND UA Nitrite Negative Negative 04/25 STOOL [facility] (04/25/16 6:17 PM) URINE AND UA Color Yellow Yellow 04/25 [facility] *NA* (04/25/16 6:17 PM) URINE AND UA Turbidity Clear Clear 04/25 [facility] (04/25/16 6:17 PM) URINE AND UA Spec Grav 1.020 <=1.030 04/25 [facility] Renal Stone Renal Stone EXAM: CT ABDOMEN AND PELVIS WITHOUT CONTRAST [facility] CT [facility] DATE: 04/25/2016 6:07 PM CDT [...] provided. IV contrast: None. CT Radiation Dose: CCU=[id number] mGy-cm FINDINGS: Evaluation of the solid organs [...] infrarenal abdominal aorta without aneurysmal dilatation. SL: [id number] CARDIAC Troponin-I null 0.00 - 03/05 MH ENZYMES 0.40 /2015 [facility] CARDIAC CK MB 0.8 ng/mL 0.5 - 3.6 03/05 MH ENZYMES /2016 [facility] CARDIAC Total CK 60 unit/L - 191 03/05 MH ENZYMES /2016 [facility] CARDIAC CK-MB INDEX 1.3 0.0 - 2.5 03/05 MH ENZYMES /2016 [facility] CARDIAC Troponin-I null 0.00 - 03/05 MH ENZYMES 0.40 2016 [facility] CARDIAC Total CK 66 unit/L - 191 03/05 MH ENZYMES /2016 [facility] CARDIAC CK MB 0.6 ng/mL 0.5 - 3.6 03/05 MH ENZYMES /2016 [facility] CARDIAC CK-MB INDEX 0.9 0.0 - 2.5 03/05 MH ENZYMES /2016 [facility] CHEM PANEL eGFR 103 03/05 Result Comment: [...] is not recommended in the following populations: [address] Individuals with unstable creatinine concentrations, including [...] 12.0 meq/L 10.0 - 09 MH 20.0 [facility] CHEM PANEL Globulin 4.4 g/dL 2.7 - 4.2 03/05 [facility] CHEM PANEL B/C Ratio 14 6 - 25 03/05 [facility] CHEM PANEL A/G Ratio 0.8 0.7 - 1.6 03/05 [facility] CHEM PANEL Calcium Lvl 8.8 mg/dL 8.5 - 10.5 03/05 [facility] CHEM PANEL Bili Total 0.6 mg/dL 0.2 - 1.3 03/05 [facility] CHEM PANEL Total 7.8 g/dL 6.4 - 8.4 03/05 Protein [facility] CHEM PANEL ASPARTATE 16 unit/L 0 - 37 03/05 [facility] CHEM PANEL Alk Phos 128 unit/L 39 - 136 03/05 [facility] CHEM PANEL Glucose Lvl 97 mg/dL 70 - 99 03/05 [facility] CHEM PANEL Creatinine 0.88 mg/dL 0.50 - 03/05 MH Lvl 1.40 [facility] CHEM PANEL BUN 12 mg/dL 7 - 22 03/05 [facility] CHEM PANEL Sodium Lvl 138 meq/L 135 - 145 03/05 [facility] CHEM PANEL ALANINE 32 unit/L 0 - 65 03/05 AMINOTRANS [facility] RASE CHEM PANEL Albumin Lvl 3.4 g/dL 3.5 - 5.0 03/05 [facility] CHEM PANEL Potassium 4.0 meq/L 3.5 - 5.1 03/05 MH Lvl [facility] CHEM PANEL Chloride Lvl 105 meq/L 95 - 109 03/05 [facility] CHEM PANEL CO2 25 meq/L 24 - 32 03/05 [facility] HEMATOLOGY Platelet 294 K/CMM 133 - 450 03/05 [facility] HEMATOLOGY MPV 7.4 fL 7.4 - 10.4 03/05 [facility] HEMATOLOGY WBC X 10x3 10.0 K/CMM 3.7 - 10.4 03/05 [facility] HEMATOLOGY RDW 16.6 % 11.5 - 03/05 MH 14.5 [facility] HEMATOLOGY MCH 24.1 pg 27.0 - 03/05 MH 31.0 [facility] HEMATOLOGY MCHC 33.4 g/dL 32.0 - 03/05 MH 36.0 [facility] HEMATOLOGY MCV 72.2 fL 80.0 - 03/05 MH 94.0 [facility] HEMATOLOGY Hct 38.1 % 42.0 - 03/05 MH 54.0 [facility] HEMATOLOGY RBC X 10x6 5.28 M/CMM 4.70 - 03/05 MH 6.10 [facility] HEMATOLOGY Hgb 12.7 g/dL 14.0 - 03/05 MH 18.0 [facility] HEMATOLOGY Microcyte 1+ None Seen 03/05 [facility] *ABN* (03/05/16 7:30 AM) HEMATOLOGY Basophils # 0.1 K/CMM 0.0 - 0.2 03/05 [facility] HEMATOLOGY Monocytes # 0.7 K/CMM 0.0 - 0.8 03/05 [facility] HEMATOLOGY Eosinophils 0.1 K/CMM 0.0 - 0.5 03/05 MH # /2015 [facility] HEMATOLOGY Segs-Bands # 7.5 K/CMM 1.5 - 8.1 03/05 [facility] HEMATOLOGY Lymphocytes 1.6 K/CMM 1.0 - 5.5 03/05 # /2015 [facility] HEMATOLOGY Eosinophils 1.2 % 0.0 - 4.0 03/05 [facility] HEMATOLOGY Basophils 0.6 % 0.0 - 1.0 03/05 [facility] HEMATOLOGY Segs 75.1 % 45.0 - 03/05 MH 75.0 [facility] HEMATOLOGY Monocytes 7.4 % 2.0 - 12.0 03/05 [facility] HEMATOLOGY Lymphocytes 15.7 % 20.0 - 03/05 40.0 [facility] Chest 1view Chest 1view Patient Name: ANNABEL MCCONNELL 03/05 - [facility] /[facility] - [place] : 1970; Age: 45 years y/o Male MR: [id number] Read by: Jason Dozier MD Dictated Date/time: [...] unremarkable. IMPRESSION: 1. No active disease. SL: [id number] URINE AND UA RBC 0-2 /HPF 0 - 2 03/02 [facility] URINE AND UA Sq Epi None Seen Few 03/02 [facility] (03/02/16 8:22 AM) URINE AND UA WBC None Seen None Seen 03/02 [facility] (03/02/16 8:22 AM) URINE AND UA pH 6.0 5.0 - 8.0 03/02 [facility] URINE AND UA Protein Negative Negative 03/02 STOOL mg/dL mg/dL [facility] URINE AND UA Glucose Negative Negative 03/02 STO[facility] mg/dL mg/dL [facility] URINE AND UA Ketones Negative Negative 03/02 STOOL mg/dL mg/dL [facility] URINE AND UA Bili Negative Negative 03/02 [facility] *NA* (03/02/16 8:22 AM) URINE AND UA Color Yellow Yellow 03/02 [facility] *NA* (03/02/16 8:22 AM) URINE AND UA Turbidity Clear Clear 03/02 [facility] (03/02/16 8:22 AM) URINE AND UA Spec Grav 1.015 <=1.030 03/02 [facility] URINE AND UA Blood Negative Negative 03/02 [facility] (03/02/16 8:22 AM) URINE AND UA 0.2 EU/dL 0.1 - 1.0 03/02 STOOL Urobilinogen [facility] URINE AND UA Nitrite Negative Negative 03/02 [facility] (03/02/16 8:22 AM) URINE AND UA Leuk Est Negative Negative 03/02 STOOL [facility] (03/02/16 8:22 AM) CHEM PANEL A/G Ratio 0.7 0.7 - 1.6 03/02 [facility] CHEM PANEL Globulin 4.6 g/dL 2.7 - 4.2 03/02 [facility] CHEM PANEL B/C Ratio 16 6 - 25 03/02 [facility] CHEM PANEL AGAP 10.4 meq/L 10.0 - 03/02 MH 20.0 [facility] CHEM PANEL Total 8.0 g/dL 6.4 - 8.4 03/02 Protein [facility] CHEM PANEL Bili Total 0.3 mg/dL 0.2 - 1.3 03/02 [facility] CHEM PANEL Calcium Lvl 8.7 mg/dL 8.5 - 10.5 03/02 [facility] CHEM PANEL CO2 26 meq/L 24 - 32 03/02 [facility] CHEM PANEL Chloride Lvl 106 meq/L 95 - 109 03/02 [facility] CHEM PANEL Sodium Lvl 138 meq/L 135 - 145 03/02 [facility] CHEM PANEL Potassium 4.4 meq/L 3.5 - 5.1 03/02 Lv [facility] CHEM PANEL eGFR 83 03/02 Result Comment: [...] is not recommended in the following populations: [facility] 3m2 Individuals with unstable creatinine concentrations, including [...] ASPARTATE 13 unit/L 0 - 37 03/02 [facility] CHEM PANEL Creatinine 1.07 mg/dL 0.50 - 03/02 MH Lvl 1.40 /2015 [facility] CHEM PANEL BUN 17 mg/dL 7 - 22 03/02 [facility] CHEM PANEL Glucose Lvl 106 mg/dL 70 - 99 03/02 [facility] CHEM PANEL Alk Phos 127 unit/L 39 - 136 03/02 [facility] CHEM PANEL Albumin Lvl 3.4 g/dL 3.5 - 5.0 03/02 [facility] CHEM PANEL ALANINE 33 unit/L 0 - 65 03/02 AMINOTRANSFE /2015 [facility] RASE CHEM PANEL Lipase Lvl 164 unit/L 73 - 393 03/02 [facility] HEMATOLOGY Basophils # 0.1 K/CMM 0.0 - 0.2 03/02 [facility] HEMATOLOGY Microcyte 1+ None Seen 03/02 [facility] *ABN* (03/02/16 5:41 AM) HEMATOLOGY Monocytes 6.7 % 2.0 - 12.0 03/02 [facility] HEMATOLOGY Lymphocytes 21.9 % 20.0 - 03/02 MH 40.0 [facility] HEMATOLOGY Eosinophils 1.5 % 0.0 - 4.0 03/02 [facility] HEMATOLOGY Segs 69.1 % 45.0 - 03/02 75.0 [facility] HEMATOLOGY Monocytes # 0.8 K/CMM 0.0 - 0.8 03/02 [facility] HEMATOLOGY Lymphocytes 2.6 K/CMM 1.0 - 5.5 03/02 MH # [facility] HEMATOLOGY Eosinophils 0.2 K/CMM 0.0 - 0.5 03/02 MH [facility] HEMATOLOGY Segs-Bands # 8.1 K/CMM 1.5 - 8.1 03/02 [facility] HEMATOLOGY Basophils 0.8 % 0.0 - 1.0 03/02 [facility] HEMATOLOGY WBC X 10x3 11.8 K/CMM 3.7 - 10.4 03/02 [facility] HEMATOLOGY Hct 37.4 % 42.0 - 03/02 MH 54.0 [facility] HEMATOLOGY RBC X 10x6 5.18 M/CMM 4.70 - 03/02 MH 6.10 [facility] HEMATOLOGY Hgb 12.5 g/dL 14.0 - 03/02 MH 18.0 /2015 [facility] HEMATOLOGY MCH 24.1 pg 27.0 - 03/02 MH 31.0 /2015 [facility] HEMATOLOGY RDW 16.7 % 11.5 - 03/02 MH 14.5 /2015 [facility] HEMATOLOGY MCHC 33.4 g/dL 32.0 - 03/02 MH 36.0 /2015 [facility] HEMATOLOGY MCV 72.1 fL 80.0 - 03/02 94.0 /2015 [facility] HEMATOLOGY MPV 7.7 fL 7.4 - 10.4 03/02 [facility] HEMATOLOGY Platelet 303 K/CMM 133 - 450 03/02 [facility] Chest/Abdom Chest/Abdome CT THORAX/ABDOMEN/PELVIS WITH IV CONTRAST WITH SAGITTAL AND CORONAL REFORMATTED IMAGES 03/02 - [facility] en/Pelvis w n/Pelvis w - [place] IV contrast IV contrast CT CT HISTORY: [...] colonic diverticulosis, small abdominal aortic aneurysm. SL: [id number] Abdomen RUQ Abdomen RUQ ULTRASOUND ABDOMEN RIGHT UPPER QUADRANT 03/02 - [facility] US US /2015 - [place] HISTORY: Abdominal pain, acute; right flank pain [...] steatosis. 2. Otherwise normal abdominal ultrasound. SL: [id number] Renal Stone Renal Stone Patient Name: ANNABEL MCCONNELL 03/[address] [facility] [address] /2015 [facility] : 1970; Age: 45 years y/o Male MR: [id number] Read by: John Paul Carrero MD Dictated Date/time: 03/02/16 05:55 Electronically Signed by: John Paul Carrero MD 03/02/16 05:59 FINAL REPORT Study: Renal Stone CT 03/02/2016 5:25 AM CDT Ordering Physician: Clinical Indication: Abdominal pain, acute; Comparison: None TECHNIQUE: Noncontrasted helical imaging was performed from the kidneys through the symphysis as a renal stone protocol. Multiplanar reformations are available. CT Radiation Dose: [id number] mGy-cm FINDINGS: This examination is limited for [...] - 5.1 02/18 MH S Lvl /2015 [facility] ELECTROLYTE Chloride Lvl 104 meq/L 95 - 109 02/18 S [facility] ELECTROLYTE Sodium Lvl 136 meq/L 135 - 145 02/18 MH S /2015 [facility] ELECTROLYTE Glucose Lvl 147 mg/dL 70 - 99 02/18 MH S [facility] ELECTROLYTE Creatinine 0.88 mg/dL 0.50 - 02/18 MH S Lvl 1.40 [facility] ELECTROLYTE BUN 10 mg/dL 7 - 22 02/18 MH S /2015 [facility] ELECTROLYTE eGFR 103 02/18 Result Comment: The [...] is not recommended in the following populations: [facility] 3m2 Individuals with unstable creatinine concentrations, including [...] 8.5 - 10.5 02/18 MH S /2015 [facility] ELECTROLYTE CO2 24 meq/L 24 - 32 02/18 MH S /2015 [facility] ELECTROLYTE AGAP 12.4 meq/L 10.0 - 02/18 MH S 20.0 [facility] HEMATOLOGY RDW 16.3 % 11.5 - 02/18 MH 14. [facility] HEMATOLOGY Platelet 273 K/CMM 133 - 450 02/18 [facility] HEMATOLOGY MPV 7.5 fL 7.4 - 10.4 02/18 [facility] HEMATOLOGY Hgb 12.8 g/dL 14.0 - 02/18 MH 18.0 [facility] HEMATOLOGY RBC X 10x6 5.31 M/CMM 4.70 - 02/18 MH 6.10 [facility] HEMATOLOGY WBC X 10x3 11.1 K/CMM 3.7 - 10.4 02/18 [facility] HEMATOLOGY MCV 72.6 fL 80.0 - 02/18 MH 94.0 [facility] HEMATOLOGY Hct 38.6 % 42.0 - 02/18 MH 54.0 [facility] HEMATOLOGY MCH 24.1 pg 27.0 - 02/18 MH 31.0 [facility] HEMATOLOGY MCHC 33.1 g/dL 32.0 - 02/18 MH 36.0 [facility] CARDIAC Troponin-I null 0.00 - 02/17 MH ENZYMES 0.40 [facility] HEMATOLOGY Monocytes 7.9 % 2.0 - 12.0 02/17 [facility] HEMATOLOGY Lymphocytes 20.8 % 20.0 - 02/17 MH 40.0 [facility] HEMATOLOGY Segs 69.1 % 45.0 - 02/17 MH 75.0 [facility] HEMATOLOGY Lymphocytes 2.2 K/CMM 1.0 - 5.5 02/17 MH /2015 [facility] HEMATOLOGY Monocytes # 0.8 K/CMM 0.0 - 0.8 02/17 [facility] HEMATOLOGY Eosinophils 1.6 % 0.0 - 4.0 02/17 [facility] HEMATOLOGY Segs-Bands # 7.5 K/CMM 1.5 - 8.1 02/17 [facility] HEMATOLOGY Basophils 0.6 % 0.0 - 1.0 02/17 [facility] HEMATOLOGY Microcyte 1+ None Seen 02/17 [facility] *ABN* (02/18/16 5:20 AM) HEMATOLOGY Basophils # 0.1 K/CMM 0.0 - 0.2 02/17 [facility] HEMATOLOGY Eosinophils 0.2 K/CMM 0.0 - 0.5 02/17 MH # /2015 [facility] HEMATOLOGY RBC X 10x6 4.91 M/CMM 4.70 - 02/17 MH 6.10 [facility] HEMATOLOGY WBC X 10x3 10.8 K/CMM 3.7 - 10.4 02/17 [facility] HEMATOLOGY MCH 24.1 pg 27.0 - 02/17 MH 31.0 [facility] HEMATOLOGY MCV 73.1 fL 80.0 - 02/17 MH 94.0 [facility] HEMATOLOGY Hct 35.9 % 42.0 - 02/17 MH 54.0 [facility] HEMATOLOGY Hgb 11.8 g/dL 14.0 - 02/17 MH 18.0 [facility] HEMATOLOGY MPV 7.4 fL 7.4 - 10.4 02/17 [facility] HEMATOLOGY RDW 16.3 % 11.5 - 02/17 14.5 [facility] HEMATOLOGY MCHC 33.0 g/dL 32.0 - 02/17 MH 36.0 [facility] HEMATOLOGY Platelet 270 K/CMM 133 - 450 02/17 [facility] CARDIAC Troponin-I null 0.00 - 02/16 ENZYMES 0. [facility] CHEM PANEL Procalcitoni null 0.00 - 02/16 n Lvl 0.10 [facility] CARDIAC Troponin-I null 0.00 - 02/16 ENZYMES 0.40 [facility] URINE AND UA Bacteria None Seen None Seen 02/16 STOOL /2015 [facility] (02/17/16 6:27 AM) URINE AND UA RBC None Seen 0 - 2 02/16 STOOL /2015 [facility] (02/17/16 6:27 AM) URINE AND UA Mucus Few /LPF None Seen 02/16 STOOL /LPF /2015 [facility] URINE AND UA Sq Epi Rare /LPF Few /LPF 02/16 STOOL [facility] URINE AND UA WBC 0-2 /HPF None Seen 02/16 STOOL /HPF /2015 [facility] URINE AND UA Leuk Est Negative Negative 02/16 STOOL /2015 [facility] (02/17/16 6:27 AM) URINE AND UA 0.2 EU/dL 0.1 - 1.0 02/16 STOOL Urobilinogen [facility] URINE AND UA Nitrite Negative Negative 02/16 STOOL [facility] (02/17/16 6:27 AM) URINE AND UA Spec Grav 1.025 <=1.030 02/16 STOOL [facility] URINE AND UA Turbidity Clear Clear 02/16 STOOL [facility] (02/17/16 6:27 AM) URINE AND UA Color Yellow Yellow 02/16 STOOL [facility] *NA* (02/17/16 6:27 AM) URINE AND UA Bili Negative Negative 02/16 STOOL [facility] *NA* (02/17/16 6:27 AM) URINE AND UA Blood Negative Negative 02/16 STOOL [facility] (02/17/16 6:27 AM) URINE AND UA Ketones Negative Negative 02/16 STOOL mg/dL mg/dL [facility] URINE AND UA Glucose Negative Negative 02/16 STOOL mg/dL mg/dL [facility] URINE AND UA pH 6.0 5.0 - 8.0 02/16 STOOL [facility] URINE AND UA Protein Negative Negative 02/16 STOOL mg/dL mg/dL [facility] CARDIAC CK-MB INDEX 1.6 0.0 - 2.5 02/16 ENZYMES [facility] CARDIAC CK MB 0.9 ng/mL 0.5 - 3.6 02/16 ENZYMES [facility] CARDIAC Total CK 58 unit/L 12 - 191 02/16 ENZYMES [facility] CHEM PANEL eGFR 93 02/16 Result Comment: [...] is not recommended in the following populations: [facility] 3m2 Individuals with unstable creatinine concentrations, including [...] 33 unit/L 0 - 65 02/16 AMINOTRANS [facility] RASE CHEM PANEL CO2 23 meq/L 24 - 32 02/16 [facility] CHEM PANEL Calcium Lvl 8.8 mg/dL 8.5 - 10.5 02/16 [facility] CHEM PANEL Potassium 4.0 meq/L 3.5 - 5.1 02/16 MH Lvl [facility] CHEM PANEL Chloride Lvl 105 meq/L 95 - 109 02/16 [facility] CHEM PANEL Creatinine 0.97 mg/dL 0.50 - 02/16 MH Lvl 1.40 [facility] CHEM PANEL Glucose Lvl 103 mg/dL 70 - 99 02/16 [facility] CHEM PANEL BUN 11 mg/dL 7 - 22 02/16 [facility] CHEM PANEL Albumin Lvl 3.4 g/dL 3.5 - 5.0 02/16 [facility] CHEM PANEL Alk Phos 128 unit/L 39 - 136 02/16 [facility] CHEM PANEL Bili Total 0.5 mg/dL 0.2 - 1.3 02/16 [facility] CHEM PANEL Sodium Lvl 139 meq/L 135 - 145 02/16 [facility] CHEM PANEL AGAP 15.0 meq/L 10.0 - 02/16 MH 20.0 [facility] CHEM PANEL B/C Ratio 11 6 - 25 02/16 [facility] CHEM PANEL Total 8.0 g/dL 6.4 - 8.4 02/16 [facility] CHEM PANEL ASPARTATE 16 unit/L 0 - 37 02/16 [facility] CHEM PANEL Globulin 4.6 g/dL 2.7 - 4.2 02/16 [facility] CHEM PANEL A/G Ratio 0.7 0.7 - 1.6 02/16 [facility] HEMATOLOGY [employer] 1+ None Seen 02/16 [place] *ABN* (02/17/16 5:50 AM) HEMATOLOGY Basophils # 0.1 K/CMM 0.0 - 0.2 02/16 [facility] HEMATOLOGY Basophils 0.5 % 0.0 - 1.0 02/16 [facility] HEMATOLOGY Lymphocytes 2.4 K/CMM 1.0 - 5.5 02/16 [facility] # /2015 [facility] HEMATOLOGY Monocytes # 0.8 K/CMM 0.0 - 0.8 02/16 [facility] HEMATOLOGY Eosinophils 0.1 K/CMM 0.0 - 0.5 02/16 [facility] # /2015 [facility] HEMATOLOGY Segs-Bands # 8.7 K/CMM 1.5 - 8.1 02/16 [facility] HEMATOLOGY Eosinophils 1.2 % 0.0 - 4.0 02/16 [facility] HEMATOLOGY Segs 72.1 % 45.0 - 02/16 [facility] 75.0 [facility] HEMATOLOGY Lymphocytes 19.8 % 20.0 - 02/16 [facility] 40.0 [facility] HEMATOLOGY Monocytes 6.4 % 2.0 - 12.0 02/16 [facility] HEMATOLOGY Platelet 327 K/CMM 133 - 450 02/16 [facility] HEMATOLOGY MCH 24.1 pg 27.0 - 02/16 31.0 [facility] HEMATOLOGY MCHC 33.3 g/dL 32.0 - 02/16 36.0 [facility] HEMATOLOGY MPV 7.6 fL 7.4 - 10.4 02/16 [facility] HEMATOLOGY RDW 16.3 % 11.5 - 02/16 14.5 [facility] HEMATOLOGY Hgb 13.1 g/dL 14.0 - 02/16 18.0 [facility] HEMATOLOGY Hct 39.5 % 42.0 - 02/16 54.0 [facility] HEMATOLOGY WBC X 10x3 12.0 K/CMM 3.7 - 10.4 02/16 [facility] HEMATOLOGY RBC X 10x6 5.45 M/CMM 4.70 - 02/16 [facility] 6.10 [facility] HEMATOLOGY MCV 72.6 fL 80.0 - 02/16 94.0 [facility] Renal Stone Renal Stone Patient Name: ANNABEL MCCONNELL 02/16 - [facility] - [place] : 1970; Age: 45 years Male MR: [id number] Read by: Sundar Jeffrey MD Dictated Date/time: 02/17/16 05:53 Electronically Signed by: Sundar Jeffrey MD 02/17/16 06:01 FINAL REPORT Study: Renal Stone CT 02/17/2016 5:26 AM CDT Clinical Indication: Flank Pain. NM. STATED RT. FLANK PAIN AND UPPER CHEST [...] small left renal cyst. 7. Cardiomegaly. SL: [id number] Chest 1view Chest 1view Patient Name: ANNABEL MCCONNELL 02/16 [facility] DX DX [place] : 1970; Age: 45 years y/o Male MR: [id number] Read by: Jaun Guillermo MD Dictated Date/time: 02/17/16 05:48 Electronically Signed by: Jaun Gulilermo MD 02/17/16 05:49 FINAL REPORT Study: Chest [...] Date Comments Source Respitory Rate 18 05/17/2016 [facility] Temperature Oral (F) 98.1 F 05/17/2016 [facility] Heart Rate 72 05/17/2016 [facility] Systolic (mm Hg) 116 05/17/2016 [facility] Diastolic (mm Hg) 76 05/17/2016 [facility] Weight 128.636 05/17/2016 [facility] Temperature Oral (F) 97.6 F 05/17/2016 [facility] Respitory Rate 16 05/17/2016 [facility] Heart Rate 79 05/17/2016 [facility] Systolic (mm Hg) 100 05/17/2016 [facility] Diastolic (mm Hg) 69 05/17/2016 [facility] Respitory Rate 16 05/06/2016 [facility] Systolic (mm Hg) 134 05/06/2016 [facility] Diastolic (mm Hg) 84 05/06/2016 [facility] Heart Rate 61 05/06/2016 [facility] Temperature Oral (F) 97.9 F 05/06/2016 [facility] Respitory Rate 14 05/06/2016 [facility] Temperature Oral (F) 97.4 F 05/06/2016 [facility] Systolic (mm Hg) 117 05/06/2016 [facility] Diastolic (mm Hg) 77 05/06/2016 [facility] Respitory Rate 18 05/06/2016 [facility] Heart Rate 56 05/06/2016 [facility] Systolic (mm Hg) 120 05/06/2016 [facility] Diastolic (mm Hg) 77 05/06/2016 [facility] Heart Rate 62 05/06/2016 [facility] Temperature Oral (F) 97.9 F 05/06/2016 [facility] Weight 131.7 05/06/2016 [facility] BMI Calculated 41.66 05/06/2016 [facility] Height 177.8 cm 05/06/2016 [facility] Weight 127.273 05/05/2016 [facility] Systolic (mm Hg) 118 04/26/2016 [facility] Diastolic (mm Hg) 64 04/26/2016 [facility] Respitory Rate 18 04/26/2016 [facility] Heart Rate 78 04/26/2016 [facility] Temperature Oral (F) 97.4 F 04/26/2016 [facility] Weight 128.182 04/25/2016 [facility] BMI Calculated 40.55 04/25/2016 [facility] Height 177.8 cm 04/25/2016 [facility] Respitory Rate 18 04/25/2016 [facility] Temperature Oral (F) 97.2 F 04/25/2016 [facility] Heart Rate 80 04/25/2016 [facility] Systolic (mm Hg) 137 04/25/2016 [facility] Diastolic (mm Hg) 85 04/25/2016 [facility] Temperature Oral (F) 98.7 F 03/05/2016 [facility] Respitory Rate 16 03/05/2016 [facility] Systolic (mm Hg) 127 03/05/2016 [facility] Diastolic (mm Hg) 68 03/05/2016 [facility] Respitory Rate 16 03/05/2016 [facility] Systolic (mm Hg) 124 03/05/2016 [facility] Diastolic (mm Hg) 76 03/05/2016 [facility] Systolic (mm Hg) 127 03/05/2016 [facility] Diastolic (mm Hg) 77 03/05/2016 [facility] Height 177.8 cm 03/05/2016 [facility] BMI Calculated 40.83 03/05/2016 [facility] Weight 129.091 03/05/2016 [facility] Heart Rate 62 03/05/2016 [facility] Temperature Oral (F) 98.9 F 03/05/2016 [facility] Respitory Rate 18 03/05/2016 [facility] Temperature Oral (F) 98.2 F 03/02/2016 [facility] Heart Rate 58 03/02/2016 [facility] Respitory Rate 16 03/02/2016 [facility] Systolic (mm Hg) 120 03/02/2016 [facility] Diastolic (mm Hg) 66 03/02/2016 [facility] Heart Rate 50 03/02/2016 [facility] Weight 128.636 03/02/2016 [facility] Temperature Oral (F) 98.0 F 03/02/2016 [facility] Respitory Rate 18 03/02/2016 [facility] Systolic (mm Hg) 149 03/02/2016 [facility] Diastolic (mm Hg) 87 03/02/2016 [facility] Heart Rate 69 03/02/2016 [facility] Systolic (mm Hg) 107 02/20/2016 [facility] Diastolic (mm Hg) 66 02/20/2016 [facility] Temperature Oral (F) 98.0 F 02/20/2016 [facility] Respitory Rate 17 02/20/2016 [facility] Heart Rate 81 02/20/2016 [facility] Heart Rate 73 02/19/2016 [facility] Respitory Rate 17 02/19/2016 [facility] Temperature Oral (F) 97.8 F 02/19/2016 [facility] Systolic (mm Hg) 96 02/19/2016 [facility] Diastolic (mm Hg) 63 02/19/2016 [facility] Systolic (mm Hg) 128 02/19/2016 [facility] Diastolic (mm Hg) 84 02/19/2016 [facility] Heart Rate 82 02/19/2016 [facility] Temperature Oral (F) 97.9 F 02/19/2016 [facility] Respitory Rate 17 02/19/2016 [facility] Height 177.8 cm 02/17/2016 [facility] BMI Calculated 40.98 02/17/2016 [facility] Weight 129.545 02/17/2016 [facility] Weight 129.545 02/17/2016 [facility] BMI Calculated 40.98 02/17/2016 [facility] Height 177.8 cm 02/17/2016 [facility] Encounters Location Location Encounter Encounter Reason Attending ADM DC Status Source Details Type Number For Provider Date Date Visit [facility] [id number] Osmar 02/16 02/19 Freddy Roberts /2015 [facility] [id number] Fei 03/02 03/02 Freddy Partida /2015 [facility] [id number] Rachel Platt 03/05 03/05 [facility] /2015 [facility] [id number] Agustin 04/25 04/26 Freddy Lopez /2015 [facility] [id number] Geronimo 05/05 05/07 Freddy Dupont /2015 [facility] [id number] Karey 05/17 05/18 Freddy Zuleta /2015 [facility] Procedures Procedure Code Date Perfomer Comments Source Catheterization of [id number] [facility] right heart Lithotripsy [id number] [facility] Placement of stent in [id number] R RCA 100% [facility] cardiac blockage conduit<sup>1</sup>
--- OUTSIDE RECORDS SUMMARY | 2018-10-06 00:15 | XMS REPORT ---
:1970 Author Organization [facility] Address [address] [place] [address] Care Team Providers Name Role Phone Unavailable [...] reported result: 1.05 Edited by: INFCE on 07/06/18:535660 1510: SILICA CLOTTING previously reported as: 1.05 ARTERIAL THROMBOPHILIA [id number] 12:28:00 Test Item Value Reference Range Comments PROTHROMBIN 3 NO MUTATION () PROTHROMBIN (FACTOR II) 25312C>A UNTRANSLATED (test DETECTED MUTATION INTERPRETATION:This code=VH3ZLTN) individual is negative (normal) for the P99365Dswcdxgok in the Prothrombin/Factor II gene. Increased riskof thrombophilia can be caused by a variety of genetic andnon-genetic factors not screened for this assay. Laboratory testing supervised and results monitored byTarah Segura, Ph.D., [facility], [facility], [facility]. MUTATION ANALYSIS:The P21754B mutation [ND020538.1:g.13887E>A (c.*97G>A)] inthe Prothrombin/Factor II gene is the second most commoninherited risk factor for thrombosis occuring inapproximately 2% of Caucasians. Presence of the mutation isassociated with an elevation of prothrombin levels to about30% above normal in heterozygotes and 70% above normal inhomozygotes. The F37448N mutation is detected bypolymerase chain reaction (PCR) and flourescent probehybridization to the targeted region, followed by meltingcurve analysis with a real time PCR system. Although rare,false positive or false negative results may occur. Allresults should be interpreted in the context of clinicalfindings, relevant history, and other laboratory data. This test was developed and its analytical performancecharacteristics have been determined by [facility]. It has not beencleared or approved by the FDA. This assay has beenvalidated pursuant to the CLIA regulations and is used forclinical purposes. Health care providers, please contact your local Differential genetic counselor or call [phone]) for assistance with interpretation of theseresults. Performed by: [facility] [address] ACTIVATED PROT C 3.09 RATIO 2.31-5.00 Ratios [...] supervised and results monitored byBjorn Cardoza, Ph.D., [facility], [facility]. MUTATION ANALYSIS:The Factor v Leiden (R560Q) mutation [NM 028562.2: c.1601G>A(p.R534Q)] in the Factor V gene is [...] its analytical performancecharacteristics have been determined by [facility]. It has not beencleared or approved by the FDA. This assay has beenvalidated pursuant to the CLIA regulations and is used forclinical purposes. Health care providers, please contact your local Differential genetic counselor or call [phone]) for assistance with interpretation of theseresults. Performed by: [facility] [place] [address] PROTEIN S FREE (test 56 % 68-126 [...] yet been included into the APS criteria. BSYV-3-NICPE I IGM 0.8 SMU 0.0-20.0 (test code=GPIIGM) YQXS-9-BXKPY I IGG 0.0 SGU 0.0-20.0 (test code=GPIIGG) GOBT-7-WHBAJ I IGA 0.5 AHMET 0.0-20.0 The Antiphospholipid [...] SENSITIVITY CRP 2.347 mg/dl 0.000-0.747 (test code=CRPHS) [id number] 12:28:00 Test Item Value Reference Range Comments FIBRINOGEN (test code=FIB) 640 MG/DL 160-450 Excess administration of anticoagulants and/or FibrinDegradation Products may affect Fibrinogen value. FACTOR [id number] 12:28:00 Test Item Value Reference Range Comments [...] Antithrombin levels are not clinicallysignificant. PROTEIN C [id number] 12:28:00 Test Item Value Reference Range Comments [...] increased levels of Protein C. PROTEIN C [id number] 12:28:00 Test Item Value Reference Range Comments PROTEIN C ANTIGENIC (test 71 % 70-140 Decreased levels of Protein C code=PROTCAG) Antigen may be found incongenital deficiency, treatment with oral anticoagulants,liver disease, D.I.C. and post surgery. Performed by: [facility] [place] [address] PROTEIN S [id number] 12:28:00 Test Item Value Reference Range Comments PROTEIN S TOTAL (test 68 % 70-140 Performed by: [facility] code=PROTSTOT) Diagnostics/[facility] [place] [address] PROTEIN S FUNC (test 70 % 74-148 Protein S deficiency may be acquired code=PROTSFN) due to recentthrombosis, oral anticoagulant therapy, , oralcontraceptives or hormone replacement therapy, liverdysfunction, recent surgery, DIC, and vitamin K deficiency.Hereditary deficiency of Protein S show decreased levels butare rare. Elevated Protein S levels are not clinicallysignificant. Only decreased levels are associated with anincreased thrombotic risk. MTHF REDUCTASE (PCR) [id number] 12:28:00 Test Item Value Reference Range Comments MTHF REDUCTASE (PCR) 677 (test code=MTHFR TEST NOT PERFORMED 677) LUPUS ANTICOAGULANT [id number] 11:48:00 Test Item Value Reference Range Comments [...] reported result: 1.05 Edited by: SMITA on 07/06/18:257369 1510: SILICA CLOTTING previously reported as: 1.05 ARTERIAL THROMBOPHILIA [id number] 11:48:00 Test Item Value Reference Range Comments PROTHROMBIN 3 NO MUTATION () PROTHROMBIN (FACTOR II) 15162C>A UNTRANSLATED (test DETECTED MUTATION INTERPRETATION:This code=AL2KJTC) individual is negative (normal) for the V59085Bitznnmfp in the Prothrombin/Factor II gene. Increased riskof thrombophilia can be caused by a variety of genetic andnon-genetic factors not screened for this assay. Laboratory testing supervised and results monitored byTarah Segura, Ph.D., [facility], [facility], [facility]. MUTATION ANALYSIS:The X04691C mutation [HQ293338.1:g.06555Z>A (c.*97G>A)] inthe Prothrombin/Factor II gene is the second most commoninherited risk factor for thrombosis occuring inapproximately 2% of Caucasians. Presence of the mutation isassociated with an elevation of prothrombin levels to about30% above normal in heterozygotes and 70% above normal inhomozygotes. The O76844N mutation is detected bypolymerase chain reaction (PCR) and flourescent probehybridization to the targeted region, followed by meltingcurve analysis with a real time PCR system. Although rare,false positive or false negative results may occur. Allresults should be interpreted in the context of clinicalfindings, relevant history, and other laboratory data. This test was developed and its analytical performancecharacteristics have been determined by [facility]. It has not beencleared or approved by the FDA. This assay has beenvalidated pursuant to the CLIA regulations and is used forclinical purposes. Health care providers, please contact your local [employer]' genetic counselor or call [phone]) for assistance with interpretation of theseresults. Performed by: [facility] [place] [address] ACTIVATED PROT C 3.09 RATIO 2.31-5.00 Ratios [...] supervised and results monitored byBjorn Cardoza, Ph.D., [facility], [facility]. MUTATION ANALYSIS:The Factor v Leiden (R560Q) mutation [NM 424524.2: c.1601G>A(p.R534Q)] in the Factor V gene is [...] its analytical performancecharacteristics have been determined by [facility]. It has not beencleared or approved by the FDA. This assay has beenvalidated pursuant to the CLIA regulations and is used forclinical purposes. Health care providers, please contact your local [employer]' genetic counselor or call [phone]) for assistance with interpretation of theseresults. Performed by: [facility] [address] PROTEIN S FREE (test 56 % 68-126 [...] yet been included into the APS criteria. JGFY-4-AFBLZ I IGM 0.8 SMU 0.0-20.0 (test code=GPIIGM) RSVY-5-MRNTZ I IGG 0.0 SGU 0.0-20.0 (test code=GPIIGG) CNDL-5-UZXMS I IGA 0.5 AHMET 0.0-20.0 The Antiphospholipid [...] SENSITIVITY CRP 2.347 mg/dl 0.000-0.747 (test code=CRPHS) [id number] 11:48:00 Test Item Value Reference Range Comments FIBRINOGEN (test code=FIB) 640 MG/DL 160-450 Excess administration of anticoagulants and/or FibrinDegradation Products may affect Fibrinogen value. FACTOR [id number] 11:48:00 Test Item Value Reference Range Comments [...] Antithrombin levels are not clinicallysignificant. PROTEIN C [id number] 11:48:00 Test Item Value Reference Range Comments [...] increased levels of Protein C. PROTEIN C [id number] 11:48:00 Test Item Value Reference Range Comments PROTEIN C ANTIGENIC (test 71 % 70-140 Decreased levels of Protein C code=PROTCAG) Antigen may be found incongenital deficiency, treatment with oral anticoagulants,liver disease, D.I.C. and post surgery. Performed by: [facility] [address] PROTEIN S [id number] 11:48:00 Test Item Value Reference Range Comments PROTEIN S TOTAL (test 68 % 70-140 Performed by: [facility] code=PROTSTOT) Diagnostics/[place] [address] PROTEIN S FUNC (test 70 % 74-148 Protein S deficiency may be acquired code=PROTSFN) due to recentthrombosis, oral anticoagulant therapy, , oralcontraceptives or hormone replacement therapy, liverdysfunction, recent surgery, DIC, and vitamin K deficiency.Hereditary deficiency of Protein S show decreased levels butare rare. Elevated Protein S levels are not clinicallysignificant. Only decreased levels are associated with anincreased thrombotic risk. MTHF REDUCTASE (PCR) [id number] 11:48:00 Test Item Value Reference Range Comments MTHF REDUCTASE (PCR) 677 (test code=MTHFR 677) LUPUS ANTICOAGULANT [id number] 11:04:00 Test Item Value Reference Range Comments [...] reported result: 1.05 Edited by: SMITA on 07/06/18:107710 1510: SILICA CLOTTING previously reported as: 1.05 ARTERIAL THROMBOPHILIA [id number] 11:04:00 Test Item Value Reference Range Comments PROTHROMBIN 3 NO MUTATION () PROTHROMBIN (FACTOR II) 12598S>A UNTRANSLATED (test DETECTED MUTATION INTERPRETATION:This code=HM2RPOZ) individual is negative (normal) for the T85809Etlevtmfa in the Prothrombin/Factor II gene. Increased riskof thrombophilia can be caused by a variety of genetic andnon-genetic factors not screened for this assay. Laboratory testing supervised and results monitored Peg Segura, Ph.D., [facility], [facility], [facility]. MUTATION ANALYSIS:The E46023C mutation [ZD864157.1:g.17316B>A (c.*97G>A)] inthe Prothrombin/Factor II gene is the second most commoninherited risk factor for thrombosis occuring inapproximately 2% of Caucasians. Presence of the mutation isassociated with an elevation of prothrombin levels to about30% above normal in heterozygotes and 70% above normal inhomozygotes. The O07741O mutation is detected bypolymerase chain reaction (PCR) and flourescent probehybridization to the targeted region, followed by meltingcurve analysis with a real time PCR system. Although rare,false positive or false negative results may occur. Allresults should be interpreted in the context of clinicalfindings, relevant history, and other laboratory data. This test was developed and its analytical performancecharacteristics have been determined by [facility]. It has not beencleared or approved by the FDA. This assay has beenvalidated pursuant to the CLIA regulations and is used forclinical purposes. Health care providers, please contact your local [employer]' genetic counselor or call [phone]) for assistance with interpretation of theseresults. Performed by: [employer] [address] ACTIVATED PROT C 3.09 RATIO 2.31-5.00 Ratios [...] supervised and results monitored byBjorn Cardoza, Ph.D., [facility], [facility]. MUTATION ANALYSIS:The Factor v Leiden (R560Q) mutation [NM 785379.2: c.1601G>A(p.R534Q)] in the Factor V gene is [...] its analytical performancecharacteristics have been determined by [facility]. It has not beencleared or approved by the FDA. This assay has beenvalidated pursuant to the CLIA regulations and is used forclinical purposes. Health care providers, please contact your local [employer]' genetic counselor or call [phone]) for assistance with interpretation of theseresults. Performed by: [facility] [address] PROTEIN S FREE (test 56 % 68-126 [...] yet been included into the APS criteria. BENA-2-IVSAE I IGM SMU 0.0-20.0 (test code=GPIIGM) GQAS-3-HGDHA I IGG SGU 0.0-20.0 (test code=GPIIGG) QXLR-5-GTGZZ I IGA 0.5 AHMET 0.0-20.0 The Antiphospholipid [...] HIGH SENSITIVITY CRP mg/dl 0.000-0.747 (test code=CRPHS) [id number] 11:04:00 Test Item Value Reference Range Comments FIBRINOGEN (test code=FIB) 640 MG/DL 160-450 Excess administration of anticoagulants and/or FibrinDegradation Products may affect Fibrinogen value. FACTOR [id number] 11:04:00 Test Item Value Reference Range Comments [...] Antithrombin levels are not clinicallysignificant. PROTEIN C [id number] 11:04:00 Test Item Value Reference Range Comments [...] increased levels of Protein C. PROTEIN C [id number] 11:04:00 Test Item Value Reference Range Comments PROTEIN C ANTIGENIC (test 71 % 70-140 Decreased levels of Protein C code=PROTCAG) Antigen may be found incongenital deficiency, treatment with oral anticoagulants,liver disease, D.I.C. and post surgery. Performed by: [facility] [address] PROTEIN S [id number] 11:04:00 Test Item Value Reference Range Comments PROTEIN S TOTAL (test 68 % 70-140 Performed by: [facility] code=PROTSTOT) Diagn[place] [address] PROTEIN S FUNC (test 70 % 74-148 Protein S deficiency may be acquired code=PROTSFN) due to recentthrombosis, oral anticoagulant therapy, , oralcontraceptives or hormone replacement therapy, liverdysfunction, recent surgery, DIC, and vitamin K deficiency.Hereditary deficiency of Protein S show decreased levels butare rare. Elevated Protein S levels are not clinicallysignificant. Only decreased levels are associated with anincreased thrombotic risk. MTHF REDUCTASE (PCR) [id number] 11:04:00 Test Item Value Reference Range Comments MTHF REDUCTASE (PCR) 677 (test code=MTHFR 677) LUPUS ANTICOAGULANT [id number] 11:03:00 Test Item Value Reference Range Comments [...] reported result: 1.05 Edited by: SMITA on 07/06/18:104605/ 1510: SILICA CLOTTING previously reported as: 1.05 ARTERIAL THROMBOPHILIA [id number] 11:03:00 Test Item Value Reference Range Comments PROTHROMBIN 3 NO MUTATION () PROTHROMBIN (FACTOR II) 54530M>A UNTRANSLATED (test DETECTED MUTATION INTERPRETATION:This code=RI1SYYF) individual is negative (normal) for the O32131Aihwseqwz in the Prothrombin/Factor II gene. Increased riskof thrombophilia can be caused by a variety of genetic andnon-genetic factors not screened for this assay. Laboratory testing supervised and results monitored byTarah Segura, Ph.D., [facility], [facility], [facility]. MUTATION ANALYSIS:The F70667H mutation [EA581685.1:g.26803F>A (c.*97G>A)] inthe Prothrombin/Factor II gene is the second most commoninherited risk factor for thrombosis occuring inapproximately 2% of Caucasians. Presence of the mutation isassociated with an elevation of prothrombin levels to about30% above normal in heterozygotes and 70% above normal inhomozygotes. The R46183G mutation is detected bypolymerase chain reaction (PCR) and flourescent probehybridization to the targeted region, followed by meltingcurve analysis with a real time PCR system. Although rare,false positive or false negative results may occur. Allresults should be interpreted in the context of clinicalfindings, relevant history, and other laboratory data. This test was developed and its analytical performancecharacteristics have been determined by [facility]. It has not beencleared or approved by the FDA. This assay has beenvalidated pursuant to the CLIA regulations and is used forclinical purposes. Health care providers, please contact your local [employer]' genetic counselor or call [phone]) for assistance with interpretation of theseresults. Performed by: [employer] [place] [address] ACTIVATED PROT C 3.09 RATIO 2.31-5.00 Ratios [...] supervised and results monitored byBjorn Cardoza, Ph.D., [facility], [facility]. MUTATION ANALYSIS:The Factor v Leiden (R560Q) mutation [NM 983724.2: c.1601G>A(p.R534Q)] in the Factor V gene is [...] its analytical performancecharacteristics have been determined by [facility]. It has not beencleared or approved by the FDA. This assay has beenvalidated pursuant to the CLIA regulations and is used forclinical purposes. Health care providers, please contact your local [employer]' genetic counselor or call [phone]) for assistance with interpretation of theseresults. Performed by: [employer] [address] PROTEIN S FREE (test 56 % 68-126 [...] yet been included into the APS criteria. WDWX-1-WXTBE I IGM SMU 0.0-20.0 (test code=GPIIGM) QWKA-9-CURGC I IGG SGU 0.0-20.0 (test code=GPIIGG) DHAW-8-AMOUT I IGA 0.5 AHMET 0.0-20.0 The Antiphospholipid [...] HIGH SENSITIVITY CRP mg/dl 0.000-0.747 (test code=CRPHS) [id number] 11:03:00 Test Item Value Reference Range Comments FIBRINOGEN (test code=FIB) 640 MG/DL 160-450 Excess administration of anticoagulants and/or FibrinDegradation Products may affect Fibrinogen value. FACTOR [id number] 11:03:00 Test Item Value Reference Range Comments [...] Antithrombin levels are not clinicallysignificant. PROTEIN C [id number] 11:03:00 Test Item Value Reference Range Comments [...] increased levels of Protein C. PROTEIN C [id number] 11:03:00 Test Item Value Reference Range Comments PROTEIN C ANTIGENIC (test 71 % 70-140 Decreased levels of Protein C code=PROTCAG) Antigen may be found incongenital deficiency, treatment with oral anticoagulants,liver disease, D.I.C. and post surgery. Performed by: [facility] [place] [address] PROTEIN S [id number] 11:03:00 Test Item Value Reference Range Comments [...] with anincreased thrombotic risk. MTHF REDUCTASE (PCR) [id number] 11:03:00 Test Item Value Reference Range Comments MTHF REDUCTASE (PCR) 677 (test code=MTHFR 677) LUPUS ANTICOAGULANT [id number] 21:21:00 Test Item Value Reference Range Comments [...] reported result: 1.05 Edited by: SMITA on 07/06/18:930722 1510: SILICA CLOTTING previously reported as: 1.05 ARTERIAL THROMBOPHILIA [id number] 21:21:00 Test Item Value Reference Range Comments PROTHROMBIN 3 UNTRANSLATED (test code=ID0XVUQ) ACTIVATED PROT C 3.09 RATIO 2.31-5.00 Ratios [...] yet been included into the APS criteria. CRJR-5-BOCRX I IGM SMU 0.0-20.0 (test code=GPIIGM) FZLD-9-BZKHZ I IGG SGU 0.0-20.0 (test code=GPIIGG) JRPN-7-AEABY I IGA 0.5 AHMET 0.0-20.0 The Antiphospholipid [...] HIGH SENSITIVITY CRP mg/dl 0.000-0.747 (test code=CRPHS) [id number] 21:21:00 Test Item Value Reference Range Comments FIBRINOGEN (test code=FIB) 640 MG/DL 160-450 Excess administration of anticoagulants and/or FibrinDegradation Products may affect Fibrinogen value. FACTOR [id number] 21:21:00 Test Item Value Reference Range Comments [...] Antithrombin levels are not clinicallysignificant. PROTEIN C [id number] 21:21:00 Test Item Value Reference Range Comments [...] increased levels of Protein C. PROTEIN C [id number] 21:21:00 Test Item Value Reference Range Comments PROTEIN C ANTIGENIC (test 71 % 70-140 Decreased levels of Protein C code=PROTCAG) Antigen may be found incongenital deficiency, treatment with oral anticoagulants,liver disease, D.I.C. and post surgery. Performed by: [facility] [facility] [place] [address] PROTEIN S [id number] 21:21:00 Test Item Value Reference Range Comments [...] with anincreased thrombotic risk. 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 CIVM-4-AQJKF I IGM SMU 0.0-20.0 (test code=GPIIGM) AVNY-1-GJNWO I IGG SGU 0.0-20.0 (test code=GPIIGG) ASRK-2-HTXQN I IGA 0.5 AHMET 0.0-20.0 The Antiphospholipid [...] HIGH SENSITIVITY CRP mg/dl 0.000-0.747 (test code=CRPHS) [id number] 14:43:00 Test Item Value Reference Range Comments FIBRINOGEN (test code=FIB) 640 MG/DL 160-450 Excess administration of anticoagulants and/or FibrinDegradation Products may affect Fibrinogen value. FACTOR [id number] 14:43:00 Test Item Value Reference Range Comments [...] Antithrombin levels are not clinicallysignificant. PROTEIN C [id number] 14:43:00 Test Item Value Reference Range Comments [...] increased levels of Protein C. PROTEIN C [id number] 14:43:00 Test Item Value Reference Range Comments PROTEIN C ANTIGENIC (test 71 % 70-140 Decreased levels of Protein C code=PROTCAG) Antigen may be found incongenital deficiency, treatment with oral anticoagulants,liver disease, D.I.C. and post surgery. Performed by: [facility] [address] PROTEIN S [id number] 14:43:00 Test Item Value Reference Range Comments [...] with anincreased thrombotic risk. 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 IEFC-3-YRBCP I IGM SMU <20 (test code=GPIIGM) EGTN-6-JVXVG I IGG UNITS <20 (test code=GPIIGG) HMJL-9-FATPG I IGA 0.0-20.0 (test code=GPIIGA) HOMOCYSTEINE (test TEST NOT PERFORMED 3.2-10.7 code=HOMOCY) umol/L HIGH SENSITIVITY CRP mg/dl 0.000-0.747 (test code=CRPHS) [id number] 14:31:00 Test Item Value Reference Range Comments FIBRINOGEN (test code=FIB) 640 MG/DL 160-450 Excess administration of anticoagulants and/or FibrinDegradation Products may affect Fibrinogen value. FACTOR [id number] 14:31:00 Test Item Value Reference Range Comments [...] Antithrombin levels are not clinicallysignificant. PROTEIN C [id number] 14:31:00 Test Item Value Reference Range Comments [...] increased levels of Protein C. PROTEIN C [id number] 14:31:00 Test Item Value Reference Range Comments PROTEIN C ANTIGENIC (test 71 % 70-140 Decreased levels of Protein C code=PROTCAG) Antigen may be found incongenital deficiency, treatment with oral anticoagulants,liver disease, D.I.C. and post surgery. Performed by: [employer] [facility]/[place] [address] PROTEIN S [id number] 14:31:00 Test Item Value Reference Range Comments [...] with anincreased thrombotic risk. MTHF REDUCTASE (PCR) [id number] 14:31:00 Test Item Value Reference Range Comments MTHF REDUCTASE (PCR) 677 (test code=MTHFR 677)
[2018-10-06] MEDS ORDERED: ATROPINE SULF 1 MG/10 ML SYR IV ONE (01:00)
[2018-10-06] MEDS ORDERED: ONDANSETRON 4 MG/2 ML VIAL ONE (01:01)
[2018-10-06 01:09] LABS: Absolute Lymphocytes (CBC) 3.1 K/uL (0.7-4.9); Absolute Monocytes 1.5 K/uL (0.1-1.3); Absolute Neutrophil 11.8 K/uL (1.8-8.0); Basophils % 0.5 % (0-1.3); Eosinophils % 0.7 % (0-4.4); Hematocrit 44.2 % (39.6-49.0); Lymphocytes % 18.5 % (15.3-44.8); MPV 8.3 fL (7.6-11.3); Monocytes % 9.2 % (3.3-12.3)
[2018-10-06 01:10] LABS: Protime INR 2.25
[2018-10-06 01:23] LABS: ALT/SGPT 29 U/L (12-78); AST/SGOT 15 U/L (15-37); Albumin 3.6 g/dL (3.4-5.0); Alkaline Phosphatase 128 U/L (45-117); BUN Blood Urea Nitrogen 37 mg/dL (7-18); Bicarbonate 31 mmol/L (21-32); Bilirubin Direct 0.2 mg/dL (0-0.2); Bilirubin Total 0.5 mg/dL (0.2-1.0); Glucose Level 158 mg/dL (74-106); Magnesium 2.3 mg/dL (1.8-2.4); NT PRO-BNP 27 pg/mL (<125); Potassium 3.4 mmol/L (3.5-5.1); Protein, Total 9.2 g/dL (6.4-8.2); Sodium Level 133 mmol/L (136-145); Troponin (Emerg Dept Use Only) < 0.02 ng/mL (0.0-0.045)
[2018-10-06] MEDS ORDERED: NA CHLORIDE 0.9% 1,000 ML ONE (01:36)
[2018-10-06] MEDS ORDERED: POTASSIUM CL SA 10 MEQ TAB PO ONE (02:52)
--- NOTE | 2018-10-06 02:54 | ER ---
Nurse's Notes [facility] Name: Marquis Nelson Age: 48 yrs Sex: Male : 1970 Arrival Date: 10/06/2018 Time: 00:02 Bed 2 Private MD: Diagnosis: Chest pain. Syncope. Symptomatic bradycardia Presentation: 10/06 00:24 Presenting complaint: states: "He was sitting in bed and passed out for about 3-4 lp1 minutes"; Patient complaint of chest pain, dizziness, shortness of breath, nausea on arrival to ED. Transition of care: patient was not received from another setting of care. Onset of symptoms was October 06, 2018 at 00:00. Risk Assessment: Do you want to hurt yourself or someone else? Patient reports no desire to harm self or others. Initial Sepsis Screen: Does the patient meet any 2 criteria? No. Patient's initial sepsis screen is negative. Does the patient have a suspected source of infection? No. Patient's initial sepsis screen is negative. Care prior to arrival: None. 00:24 Method Of Arrival: Wheelchair lp1 00:24 Acuity: THANH 2 lp1 Historical: - Allergies: 00:28 Stadol; lp1 00:28 tramadol; lp1 00:28 Trazodone; lp1 00:28 Flomax; lp1 00:28 Beta Blockers (sensitive/hypotension); lp1 00:28 Neurontin; lp1 00:28 Demerol; lp1 00:28 Ibuprofen; lp1 00:28 Skelaxin; lp1 00:28 Spironolactone; lp1 - Home Meds: 00:54 allopurinol 300 mg Oral tab 1 tab once daily [Active]; amlodipine 5 mg tab 1 tab twice ed1 a day [Active]; atorvastatin 40 mg Oral tab 1 tab nightly [Active]; clonazepam 1 mg Oral TbDL 1 tab every 6 hours [Active]; docusate sodium 100 mg Oral tab 2 times per day [Active]; folic acid 1 mg oral tab 1 tab once daily [Active]; furosemide 80 mg Oral tab 1 tab 2 times per day [Active]; magnesium oxide 400 mg oral tab daily [Active]; metformin 500 mg oral tr24 1 tab once daily [Active]; metolazone 2.5 mg Oral tab as needed [Active]; metoprolol succinate 50 mg oral Tb24 1 tab as needed [Active]; Nitrostat 0.4 mg sublingual subl every 5 minutes [Active]; pantoprazole 40 mg Oral TbEC 1 tab once daily [Active]; Plavix 75 mg Oral tab 1 tab once daily [Active]; potassium chloride 20 mEq oral TbER 1 tab 3 times per day [Active]; Ranexa 1,000 mg Oral TM12 1 tab 2 times per day [Active]; Robaxin 750 mg Oral 1 tab twice a day [Active]; Trulicity 0.75 mg/0.5 mL subcutaneous pnij once wkly [Active]; warfarin 10 mg on MWF and 7.5 mg on T,Th,Sat, Sun Oral tab 1 tab once daily [Active]; Pristiq 25 mg oral Tb24 1 tab once daily [Active]; Pristiq 100 mg oral Tb24 1 tab once daily [Active]; Abilify 10 mg oral tab 1 tab once daily [Active]; Imdur 30 mg Oral Tb24 1 tab once daily [Active]; AndroGel 20.25 mg/1.25 gram (1.62 %) transdermal glpm 2 pump once daily [Active]; Suboxone 8-2 mg sublingual film 1 film twice a day [Active]; promethazine 25 mg Oral tab as needed [Active]; Vitamin B-6 Oral 1 tab daily [Active]; Vitamin B-12 Oral [Active]; ferrous sulfate 325 mg (65 mg iron) Oral tab 1 tab three times a day [Active]; - PMHx: 00:28 AAA; ADD/ADHD; Anemia; Anxiety; Atrial Fib; CHF; GERD; High Cholesterol; Hypertension; lp1 Kidney stones; Myocardial infarction; Pulmonary Embolism; R BUNDLE BRANCH BLOCK; Sleep Apnea; - PSHx: 00:28 Lithotripsy; Hernia repair; Heart stents; "loop recorder"; lp1 - Immunization history:: Adult Immunizations up to date. - Social history:: Smoking status: Patient/guardian denies using tobacco. - Ebola Screening: : No symptoms or risks identified at this time. Screenin:28 Abuse screen: Denies threats or abuse. Denies injuries from another. Nutritional lp1 screening: No deficits noted. Tuberculosis screening: No symptoms or risk factors identified. 01:09 Fall Risk IV access (20 points). Gait- Weak (10 pts.). ak1 Assessment: 00:30 General: Appears in no apparent distress. uncomfortable, Behavior is calm, cooperative, rr5 appropriate for age. Pain: Complains of pain in chest Pain does not radiate. Pain currently is 8 out of 10 on a pain scale. Quality of pain is described as aching, Pain began gradually, Is intermittent. 00:30 Neuro: Level of Consciousness is awake, alert, obeys commands, Oriented to person, rr5 place, time, situation, Appropriate for age Reports dizziness, loss of consciousness prior to arrival. Cardiovascular: Reports chest pain, i usually have 80 bpm heart rate. its unusual for me to have 36 bpm heart rate Capillary refill < 3 seconds Rhythm is sinus bradycardia. Respiratory: Reports shortness of breath Airway is patent Respiratory effort is even, unlabored, Respiratory pattern is regular, symmetrical. GI: Abdomen is round non-distended, Reports nausea. : No signs and/or symptoms were reported regarding the genitourinary system. EENT: No signs and/or symptoms were reported regarding the EENT system. Derm: 00:45 Reassessment: patient complaints of dizziness and feels like he wants to pass out. Dr. debbie jalloh informed with order made and carried out. attached on cardiac pads. HR 36bpm. 00:55 Reassessment: conscious and coherent HR rechecked to 41bpm.shifted to trauma room 2. rr5 01:09 General: Appears in no apparent distress. Behavior is calm, cooperative. Pain: Denies ak1 pain. Pain does not radiate. Pain: Pain began MIDLEVEL PROVIDER. Neuro: Level of Consciousness is awake, alert, obeys commands, Oriented to person, place, time, situation, Appropriate for age Pier Runner are equal bilaterally Moves all extremities. Gait is unsteady, pt c/o dizziness. Speech is normal, Facial symmetry appears normal. Cardiovascular: Reports chest pain, since MIDLEVEL PROVIDER. Respiratory: No deficits noted. GI: Abdomen is round non-distended, Bowel sounds present X 4 quads. Reports nausea, since pt reported nausea with dizziness and chest pain MIDLEVEL PROVIDER. : No signs and/or symptoms were reported regarding the genitourinary system. EENT: No signs and/or symptoms were reported regarding the EENT system. Derm: Skin is dry, Skin is pink, warm \\T\\ dry. Skin temperature is warm. Musculoskeletal: No signs and/or symptoms reported regarding the musculoskeletal system. 01:40 Reassessment: pt requested to be transferred to [facility] where his patient financial coordinator frances is. 03:03 Reassessment: Patient appears in no apparent distress at this time. No changes from ak1 previously documented assessment. Patient and/or family updated on plan of care and expected duration. Pain level reassessed. Patient is alert, oriented x 3, equal unlabored respirations, skin warm/dry/pink. Patient denies pain at this time. 03:46 Reassessment: Patient and/or family updated on plan of care and expected duration. Pain ea level reassessed. Patient is alert, oriented x 3, equal unlabored respirations, skin warm/dry/pink. [facility] at facility for transfer. Report given to [facility]. Vital Signs: 00:26 BP 116 / 56; Pulse 37; Resp 22; Temp 98.6(O); Pulse Ox 94% on R/A; Weight 125.19 kg; lp1 Height 5 ft. 9 in. (175.26 cm); Pain 8/10; 00:34 BP 94 / 49; Pulse 32; Resp 18; Pulse Ox 96% on R/A; mt 00:35 BP 92 / 76; Pulse 37; Resp 14; Pulse Ox 94% on R/A; mt 00:55 BP 88 / 62; Pulse 41; Resp 17; Pulse Ox 95% ; rr5 01:09 BP 108 / 62; Pulse 45; Resp 14; Temp 98.6; Pulse Ox 99% on 2 lpm NC; Pain 3/10; ak1 01:40 BP 107 / 56; Pulse 51; Resp 12; Temp 98.6; Pulse Ox 97% on 2 lpm NC; ak1 01:45 BP 104 / 60; Pulse 53; Resp 12; Pulse Ox 98% on 2 lpm NC; ak1 02:00 BP 105 / 52; Pulse 48; Resp 14; Pulse Ox 97% on 2 lpm NC; ak1 02:15 BP 113 / 52; Pulse 73; Resp 14; Pulse Ox 97% on 2 lpm NC; ak1 03:04 BP 97 / 68; Pulse 75; Resp 12; Temp 98.6; Pulse Ox 99% on 2 lpm NC; ak1 03:44 BP 108 / 59; Pulse 76; Resp 16; Pulse Ox 100% on R/A; ea 00:26 Body Mass Index 40.76 (125.19 kg, 175.26 cm) lp1 ED Course: 00:02 Patient arrived in ED. mr 00:25 Walker Alvarado, RN is Primary Nurse. rr5 00:26 Triage completed. lp1 00:26 Arm band placed on. lp1 00:28 EKG done, by ED staff, reviewed by Ricky Jalloh MD. lp1 00:29 Patient has correct armband on for positive identification. Placed in gown. Cardiac lp1 monitor on. Pulse ox on. NIBP on. 00:29 Inserted saline lock: 20 gauge in left antecubital area, using aseptic technique. Blood mt collected. 00:42 X-ray completed. Portable x-ray completed in exam room. Patient tolerated procedure kw well. 00:43 XRAY Chest (1 view) In Process Unspecified. EDMS 00:47 Ricky Jalloh MD is Attending Physician. pkl 01:09 transfer Awaiting lab results. ak1 01:09 Door closed. Lights dimmed. Warm blanket given. ak1 01:09 Oxygen administration via nasal cannula \\T\\ 2L/min. ak1 01:42 Primary Nurse role handed off by Walker Alvarado, NAVJOT ak1 01:42 Nazia Anthony, NAVJOT is Primary Nurse. ak1 03:45 No provider procedures requiring assistance completed. Patient transferred, IV remains ea in place. Administered Medications: 00:45 Drug: Atropine 0.5 mg {Note: HR 36bpm.} Route: IVP; Site: left antecubital; rr5 01:14 Follow up: Response: heart rate increased ak1 00:50 Drug: Zofran 4 mg Route: IVP; Site: left antecubital; rr5 01:14 Follow up: Response: Nausea is decreased ak1 01:27 Drug: NS 0.9% 1000 ml Route: IV; Rate: 100 ml/hr; Site: left antecubital; ea 03:48 Follow up: IV Status: Infusion continued upon transfer ea 02:41 Drug: Potassium Chloride 20 mEq Route: PO; ea 02:43 Follow up: Response: No adverse reaction ea Outcome: 02:53 ER care complete, transfer ordered by . pkl 03:00 Instructed on the need for admit. ea 03:46 Transferred by ground EMS to [facility], Transfer form ak1 completed. Note: report given to Celine for Leeann Matute B9 bed 922 03:46 Condition: stable 03:56 Patient left the ED. ak1 Signatures: Dispatcher [employer] EDMS Ricky Jalloh MD MD pkl Rivera, Sharlene Marin, Arlin, RN RN ed1 Isidra Booth Laura RN RN lp1 Nazia Anthony RN RN ak1 Sujata Villanueva mt, Elena, RN RN ea Roque, Raymond RN RN rr5 Corrections: (The following items were deleted from the chart) 02:20 02:00 BP 113 / 52; Pulse 73bpm; Resp 14bpm; Pulse Ox 97% 2 lpm Nasal Cannula; ak1 ak1 03:50 03:46 Transferred by ground EMS to [facility], Transfer form ak1 completed. ea
--- NOTE | 2018-10-06 02:54 | EDPHYS ---
Physician Documentation [facility] Name: Marquis Nelson Age: 48 yrs Sex: Male : 1970 Arrival Date: 10/06/2018 Time: 00:02 Bed 2 Private MD: ED Physician Ricky Marley HPI: 10/06 00:56 This 48 yrs old Male presents to ER via Wheelchair with complaints of Passed pkl Out Prior To Arrival, Chest Pain, Nausea. 00:56 The patient or guardian reports chest pain that is located primarily in the substernal pkl area. Onset: just prior to arrival. The pain does not radiate. Associated signs and symptoms: Pertinent positives: dizziness, nausea, shortness of breath, syncope. The chest pain is described as a pressure. Historical: - Allergies: 00:28 Stadol; lp1 00:28 tramadol; lp1 00:28 Trazodone; lp1 00:28 Flomax; lp1 00:28 Beta Blockers (sensitive/hypotension); lp1 00:28 Neurontin; lp1 00:28 Demerol; lp1 00:28 Ibuprofen; lp1 00:28 Skelaxin; lp1 00:28 Spironolactone; lp1 - Home Meds: 00:54 allopurinol 300 mg Oral tab 1 tab once daily [Active]; amlodipine 5 mg tab 1 tab twice ed1 a day [Active]; atorvastatin 40 mg Oral tab 1 tab nightly [Active]; clonazepam 1 mg Oral TbDL 1 tab every 6 hours [Active]; docusate sodium 100 mg Oral tab 2 times per day [Active]; folic acid 1 mg oral tab 1 tab once daily [Active]; furosemide 80 mg Oral tab 1 tab 2 times per day [Active]; magnesium oxide 400 mg oral tab daily [Active]; metformin 500 mg oral tr24 1 tab once daily [Active]; metolazone 2.5 mg Oral tab as needed [Active]; metoprolol succinate 50 mg oral Tb24 1 tab as needed [Active]; Nitrostat 0.4 mg sublingual subl every 5 minutes [Active]; pantoprazole 40 mg Oral TbEC 1 tab once daily [Active]; Plavix 75 mg Oral tab 1 tab once daily [Active]; potassium chloride 20 mEq oral TbER 1 tab 3 times per day [Active]; Ranexa 1,000 mg Oral TM12 1 tab 2 times per day [Active]; Robaxin 750 mg Oral 1 tab twice a day [Active]; Trulicity 0.75 mg/0.5 mL subcutaneous pnij once wkly [Active]; warfarin 10 mg on MWF and 7.5 mg on T,Th,Sat, Sun Oral tab 1 tab once daily [Active]; Pristiq 25 mg oral Tb24 1 tab once daily [Active]; Pristiq 100 mg oral Tb24 1 tab once daily [Active]; Abilify 10 mg oral tab 1 tab once daily [Active]; Imdur 30 mg Oral Tb24 1 tab once daily [Active]; AndroGel 20.25 mg/1.25 gram (1.62 %) transdermal glpm 2 pump once daily [Active]; Suboxone 8-2 mg sublingual film 1 film twice a day [Active]; promethazine 25 mg Oral tab as needed [Active]; Vitamin B-6 Oral 1 tab daily [Active]; Vitamin B-12 Oral [Active]; ferrous sulfate 325 mg (65 mg iron) Oral tab 1 tab three times a day [Active]; - PMHx: 00:28 AAA; ADD/ADHD; Anemia; Anxiety; Atrial Fib; CHF; GERD; High Cholesterol; Hypertension; lp1 Kidney stones; Myocardial infarction; Pulmonary Embolism; R BUNDLE BRANCH BLOCK; Sleep Apnea; - PSHx: 00:28 Lithotripsy; Hernia repair; Heart stents; "loop recorder"; lp1 - Immunization history:: Adult Immunizations up to date. - Social history:: Smoking status: Patient/guardian denies using tobacco. - Ebola Screening: : No symptoms or risks identified at this time. ROS: 00:56 Eyes: Negative for injury, pain, redness, and discharge, ENT: Negative for injury, pkl pain, and discharge, Neck: Negative for injury, pain, and swelling. 00:56 Cardiovascular: Positive for chest pain. 00:56 Respiratory: Positive for shortness of breath. 00:56 Abdomen/GI: Positive for nausea. 00:56 Back: Negative for acute changes. 00:56 : Negative for urinary symptoms. 00:56 MS/extremity: Negative for acute changes. 00:56 Skin: Negative for rash. 00:56 Neuro: Positive for syncope. Exam: 00:56 Head/Face: Normocephalic, atraumatic. Eyes: Pupils equal round and reactive to light, pkl extra-ocular motions intact. Lids and lashes normal. Conjunctiva and sclera are non-icteric and not injected. Cornea within normal limits. Periorbital areas with no swelling, redness, or edema. ENT: Nares patent. No nasal discharge, no septal abnormalities noted. Tympanic membranes are normal and external auditory canals are clear. Oropharynx with no redness, swelling, or masses, exudates, or evidence of obstruction, uvula midline. Mucous membranes moist. Neck: Trachea midline, no thyromegaly or masses palpated, and no cervical lymphadenopathy. Supple, full range of motion without nuchal rigidity, or vertebral point tenderness. No Meningismus. Chest/axilla: Normal chest wall appearance and motion. Nontender with no deformity. No lesions are appreciated. 00:56 Cardiovascular: Rate: bradycardic, actual rate is 37 bpm, Rhythm: regular. 00:56 ECG was reviewed by the Attending Physician. 00:56 Respiratory: the patient does not display signs of respiratory distress, Respirations: normal, Breath sounds: are clear throughout. 00:56 Abdomen/GI: Exam negative for acute changes. 00:56 Back: Exam negative for acute changes. 00:56 : Exam negative for acute changes. 00:56 Musculoskeletal/extremity: Exam is negative for acute changes. 00:56 Skin: Exam negative for diaphoresis, rash. 00:56 Neuro: Orientation: appropriate for stated age, Mentation: is normal, Cranial nerves: grossly normal, Motor: is normal. Vital Signs: 00:26 BP 116 / 56; Pulse 37; Resp 22; Temp 98.6(O); Pulse Ox 94% on R/A; Weight 125.19 kg; lp1 Height 5 ft. 9 in. (175.26 cm); Pain 8/10; 00:34 BP 94 / 49; Pulse 32; Resp 18; Pulse Ox 96% on R/A; mt 00:35 BP 92 / 76; Pulse 37; Resp 14; Pulse Ox 94% on R/A; mt 00:55 BP 88 / 62; Pulse 41; Resp 17; Pulse Ox 95% ; rr5 01:09 BP 108 / 62; Pulse 45; Resp 14; Temp 98.6; Pulse Ox 99% on 2 lpm NC; Pain 3/10; ak1 01:40 BP 107 / 56; Pulse 51; Resp 12; Temp 98.6; Pulse Ox 97% on 2 lpm NC; ak1 01:45 BP 104 / 60; Pulse 53; Resp 12; Pulse Ox 98% on 2 lpm NC; ak1 02:00 BP 105 / 52; Pulse 48; Resp 14; Pulse Ox 97% on 2 lpm NC; ak1 02:15 BP 113 / 52; Pulse 73; Resp 14; Pulse Ox 97% on 2 lpm NC; ak1 03:04 BP 97 / 68; Pulse 75; Resp 12; Temp 98.6; Pulse Ox 99% on 2 lpm NC; ak1 03:44 BP 108 / 59; Pulse 76; Resp 16; Pulse Ox 100% on R/A; ea 00:26 Body Mass Index 40.76 (125.19 kg, 175.26 cm) lp1 MDM: 00:47 Patient medically screened. pkl 02:51 Data reviewed: vital signs, nurses notes, lab test result(s), EKG, radiologic studies, pkl plain films. 10/06 00:23 Order name: Basic Metabolic Panel; Complete Time: 02:26 lp1 10/06 00:23 Order name: CBC with Diff; Complete Time: 01:37 lp1 10/06 00:23 Order name: LFT's; Complete Time: 02:26 lp1 10/06 00:23 Order name: Magnesium; Complete Time: 02:26 lp1 10/06 00:23 Order name: NT PRO-BNP; Complete Time: 02:26 lp1 10/06 00:23 Order name: PT-INR; Complete Time: 01:37 lp1 10/06 00:23 Order name: Troponin (emerg Dept Use Only); Complete Time: 02:26 lp1 10/06 00:23 Order name: XRAY Chest (1 view) lp1 10/06 00:23 Order name: EKG; Complete Time: 00:25 lp1 10/06 01:37 Order name: EKG; Complete Time: 01:37 pkl 10/06 00:23 Order name: Cardiac monitoring; Complete Time: 00:24 lp1 10/06 00:23 Order name: EKG - Nurse/Tech; Complete Time: 00:24 lp1 10/06 00:23 Order name: IV Saline Lock; Complete Time: 00:24 lp1 10/06 00:23 Order name: Labs collected and sent; Complete Time: 00:29 lp1 10/06 00:23 Order name: O2 Per Protocol; Complete Time: 00:24 lp1 10/06 00:23 Order name: O2 Sat Monitoring; Complete Time: 00:24 lp1 Administered Medications: 00:45 Drug: Atropine 0.5 mg {Note: HR 36bpm.} Route: IVP; Site: left antecubital; rr5 01:14 Follow up: Response: heart rate increased ak1 00:50 Drug: Zofran 4 mg Route: IVP; Site: left antecubital; rr5 01:14 Follow up: Response: Nausea is decreased ak1 01:27 Drug: NS 0.9% 1000 ml Route: IV; Rate: 100 ml/hr; Site: left antecubital; ea 03:48 Follow up: IV Status: Infusion continued upon transfer ea 02:41 Drug: Potassium Chloride 20 mEq Route: PO; ea 02:43 Follow up: Response: No adverse reaction ea Disposition: 10/06/18 02:53 Transfer ordered to [facility]. Diagnosis is Chest pain. Syncope. Symptomatic bradycardia. - Reason for transfer: Higher level of care. - Accepting physician is Dr. Monge. - Condition is Stable. - Problem is new. - Symptoms have improved. Signatures: Dispatcher [employer] EDMS Ricky Marley MD MD pkl Ariln Marin RN RN ed1 Viviana Tatum RN RN lp1 Nazia Anthony RN RN ak1 Mica Addison RN RN ea Roque, Raymond RN RN rr5 Corrections: (The following items were deleted from the chart) 03:56 02:53 10/06/2018 02:53 Transfer ordered to [facility]. Diagnosis is Chest pain. ak1 Syncope. Symptomatic bradycardia. Reason for transfer: Higher level of care. Accepting physician is Dr. Monge. Condition is Stable. Problem is new. Symptoms have improved. pkl
[2018-10-06 04:10] VITALS: TEMP 98.6
[2018-10-06 04:23] VITALS: BP 108/59; O2SAT 100
--- NOTE | 2018-10-06 05:40 | EKG ---
Test Date: 2018-10-06 Test Time: 00:18:29 Silk Soaker: LUPE MEASUREMENT RESULTS: Intervals: Rate: 36 PA: QRSD: 172 QT: 574 QTc: 443 [place]: P: PA: QRS: 130 T: 4 INTERPRETIVE STATEMENTS: Sinus rhythm with complete heart block and Idioventricular escape rhythm Abnormal ECG Compared to ECG 10/06/2018 00:16:54 No significant changes Electronically Signed On 10-06-18 05:39:56 CDT by Guilherme Sharma
--- NOTE | 2018-10-06 05:42 | EKG ---
Test Date: 2018-10-06 Test Time: 00:16:54 Personal Development Coach: LUPE MEASUREMENT RESULTS: Intervals: Rate: 36 HI: QRSD: 166 QT: 536 QTc: 414 [place]: P: HI: QRS: 139 T: 1 INTERPRETIVE STATEMENTS: Sinus rhythm with complete heart block and Idioventricular escape rhythm Abnormal ECG Compared to ECG 08/10/2018 15:14:48 Complete heart block with Idioventricular escape rhythm now present Left posterior fascicular block now present Electronically Signed On 10-06-18 05:41:11 CDT by Guilherme Sharma
--- NOTE | 2018-10-06 08:16 | RAD REPORT ---
EXAM DESCRIPTION: Linh Single View10/06/2018 12:43 am CLINICAL HISTORY: Chest pain COMPARISON: July 2018 FINDINGS: The lungs appear clear of acute infiltrate. The heart is borderline enlarged IMPRESSION: No acute abnormalities displayed
--- NOTE | 2018-10-06 11:16 | EKG ---
Test Date: 2018-10-06 Test Time: 01:59:21 Audio Production Manager: SIVAN MEASUREMENT RESULTS: Intervals: Rate: 52 FL: 174 QRSD: 116 QT: 512 QTc: 476 [place]: P: -7 FL: 174 QRS: -45 T: 32 INTERPRETIVE STATEMENTS: Sinus rhythm with second degree AV block type II Left axis deviation Right bundle branch block Inferior infarct, age undetermined Anterolateral infarct, age undetermined Abnormal ECG Compared to ECG 10/06/2018 00:18:29 complete heart block with idioventricular escape rhythm is no longer present Electronically Signed On 10-06-18 10:32:59 CDT by Guilherme Sharma
== END 2018-10-06 03:56 | disposition short-term general hospital (02) ==
LOC: ER
DX: R07.9 Chest pain, unspecified (principal); R00.1 Bradycardia, unspecified; I10 Essential (primary) hypertension; E78.00 Pure hypercholesterolemia, unspecified; F41.9 Anxiety disorder, unspecified; I48.91 Unspecified atrial fibrillation; I50.9 Heart failure, unspecified; I25.2 Old myocardial infarction; F90.9 Attention-deficit hyperactivity disorder, unspecified type; Z79.01 Long term (current) use of anticoagulants; Z88.5 Allergy status to narcotic agent; Z88.6 Allergy status to analgesic agent; Z88.8 Allergy status to other drugs, medicaments and biological substances
CPT/HCPCS: 36415; 71045; 80048; 80076; 83735; 83880; 84484; 85025; 85610; 93005; 96361; 96374; 96375; 99285; J2405; J7030

== ENCOUNTER 2018-10-18 05:25 | Emergency (ER) | payer OTHER ==
[2018-10-18] MEDS ORDERED: NA CHLORIDE 0.9% 1,000 ML ONE ×2 (06:10→07:32)
[2018-10-18 06:19] LABS: Absolute Lymphocytes (CBC) 1.9 K/uL (0.7-4.9); Absolute Monocytes 0.6 K/uL (0.1-1.3); Absolute Neutrophil 6.4 K/uL (1.8-8.0); Basophils % 0.6 % (0-1.3); Eosinophils % 1.3 % (0-4.4); Hematocrit 39.1 % (39.6-49.0); Lymphocytes % 20.7 % (15.3-44.8); Monocytes % 6.8 % (3.3-12.3); RBC Red Blood Cell Count 5.29 M/uL (4.33-5.43)
[2018-10-18 06:20] LABS: Protime INR 2.12
[2018-10-18 06:37] LABS: ALT/SGPT 23 U/L (12-78); AST/SGOT 12 U/L (15-37); Albumin 3.3 g/dL (3.4-5.0); Alkaline Phosphatase 121 U/L (45-117); BUN Blood Urea Nitrogen 19 mg/dL (7-18); Bicarbonate 28 mmol/L (21-32); Bilirubin Direct 0.1 mg/dL (0-0.2); Bilirubin Total 0.3 mg/dL (0.2-1.0); Glucose Level 114 mg/dL (74-106); Magnesium 2.5 mg/dL (1.8-2.4); NT PRO-BNP 114 pg/mL (<125); Potassium 4.5 mmol/L (3.5-5.1); Protein, Total 8.3 g/dL (6.4-8.2); Sodium Level 139 mmol/L (136-145); Troponin (Emerg Dept Use Only) < 0.02 ng/mL (0.0-0.045)
[2018-10-18] MEDS ORDERED: HYDROMORPHONE HCL 1 MG/ML INJ ONE (06:38)
[2018-10-18] MEDS ORDERED: ONDANSETRON 4 MG/2 ML VIAL ONE (06:39)
--- OUTSIDE RECORDS SUMMARY | 2018-10-18 07:25 | XMS REPORT | Clinical Summary ---
:1970 Author Organization [facility] Address [address] [place] [address] Care Team Providers Name Role Phone Asked, [...] times a Chronic Stable Angina day. Pectoris (DO NOT USE) warfarin (COUMADIN) 10 Take 10 mg by 0 Active MG tabletIndications: mouth. On lung embolism Friday, , Friday, Friday warfarin (COUMADIN) Take 7.5 mg 0 Active 7.5 MG by mouth. On tabletIndications: Friday, lung embolism Friday, Nigel cyanocobalamin 1,000 Inject 1,000 0 Active mcg/mL [...] Jules MD 01/23/2018 Intake Access N/A after 10/17/2017 Social History Tobacco Use Types Packs/Day Years [...] procedure are in the results section. after 10/17/2017 Results POC glucose (01/29/2018 6:14 AM CDT)Only the most recent of21 resultswithin the time period is included. POC glucose 132 (H) 65 - 99 mg/dL [facility] DEPARTMENT OF PATHOLOGY AND Comment: [employer] MEDICINE Meter ID: [id number] Manager Database Administration: Willie Márquez Performing Organization Address [facility] Centercode Phone Number [facility] DEPARTMENT OF PATHOLOGY AND [address] [place] [phone] [employer] Prothrombin time with INR (01/28/2018 11:17 AM CDT)Only the most recent of5 resultswithin the time period is included. Prothrombin time 23.2 (H) 12.0 - 15.0 sec [facility] DEPARTMENT OF PATHOLOGY AND [employer] MEDICINE INR 2.0 [facility] DEPARTMENT OF Comment: PATHOLOGY AND GENOMIC The International Normalized Ratio (INR) is a therapeutic MEDICINE monitoring tool for patients who are stable on oral anticoagulant therapy. An INR of 2.0-3.0 is suggested for deep vein thrombosis/pulmonary embolism. Specimen Blood Performing Organization Address City/[facility] Phone Number [facility] DEPARTMENT OF PATHOLOGY AND [address] [place] [phone] [employer] MEDICINE Estimated GFR (01/25/2018 5:50 AM CDT) GFR Non Af Amer 90 mL/min/1.73 m2 [facility] DEPARTMENT OF PATHOLOGY AND [employer] MEDICINE GFR Af Amer >90 mL/min/1.73 m2 [facility] DEPARTMENT OF Comment: PATHOLOGY AND GENOMIC Chronic [...] specimen Performing Organization Address City/State/Zipcode Phone Number [facility] DEPARTMENT OF PATHOLOGY AND [address] [place] [address] [employer] [facility] CBC with platelet and differential (01/25/2018 5:50 AM CDT) WBC 13.93 (H) 4.50 - 11.00 k/uL [facility] DEPARTMENT OF PATHOLOGY AND GENOMIC MEDICINE RBC 4.88 4.40 - 6.00 m/uL [facility] DEPARTMENT OF PATHOLOGY AND GENOMIC MEDICINE HGB 12.7 (L) 14.0 - 18.0 g/dL [facility] DEPARTMENT OF PATHOLOGY AND GENOMIC MEDICINE HCT 39.4 (L) 41.0 - 51.0 % [facility] DEPARTMENT OF PATHOLOGY AND GENOMIC MEDICINE MCV 80.7 (L) 82.0 - 100.0 fL [facility] DEPARTMENT OF PATHOLOGY AND GENOMIC MEDICINE MCH 26.0 (L) 27.0 - 34.0 pg [facility] DEPARTMENT OF PATHOLOGY AND GENOMIC MEDICINE MCHC 32.2 31.0 - 37.0 g/dL [facility] DEPARTMENT OF PATHOLOGY AND GENOMIC MEDICINE RDW - SD 47.6 37.0 - 55.0 fL [facility] DEPARTMENT OF PATHOLOGY AND GENOMIC MEDICINE MPV 9.6 8.8 - 13.2 fL [facility] DEPARTMENT OF PATHOLOGY AND GENOMIC MEDICINE Platelet count 281 150 - 400 k/uL [facility] DEPARTMENT OF PATHOLOGY AND GENOMIC MEDICINE Nucleated RBC 0.00 /100 WBC [facility] DEPARTMENT OF PATHOLOGY AND GENOMIC MEDICINE Neutrophils 69.6 (H) 39.0 - 69.0 % [facility] DEPARTMENT OF PATHOLOGY AND GENOMIC MEDICINE Lymphocytes 20.5 (L) 25.0 - 45.0 % [facility] DEPARTMENT OF PATHOLOGY AND GENOMIC MEDICINE Monocytes 7.8 0.0 - 10.0 % [facility] DEPARTMENT OF PATHOLOGY AND GENOMIC MEDICINE Eosinophils 0.9 0.0 - 5.0 % [facility] DEPARTMENT OF PATHOLOGY AND GENOMIC MEDICINE Basophils 0.4 0.0 - 1.0 % [facility] DEPARTMENT OF PATHOLOGY AND GENOMIC MEDICINE Immature granulocytes 0.8Comment: 0.0 - 1.0 % [facility] DEPARTMENT OF "Immature PATHOLOGY AND GENOMIC granulocytes" MEDICINE (promyelocytes, myelocytes, metamyelocytes) Specimen Blood Performing Organization Address City/[facility]/Zipcode Phone Number [facility] DEPARTMENT OF PATHOLOGY AND [address] [place] [address] [facility] Basic metabolic panel (01/25/2018 5:50 AM CDT) Sodium 137 135 - 148 mEq/L [facility] DEPARTMENT OF PATHOLOGY AND GENOMIC MEDICINE Potassium 3.9 3.5 - 5.0 mEq/L [facility] DEPARTMENT OF PATHOLOGY AND GENOMIC MEDICINE Chloride 98 98 - 112 mEq/L [facility] DEPARTMENT OF PATHOLOGY AND GENOMIC MEDICINE CO2 26 24 - 31 mEq/L [facility] DEPARTMENT OF PATHOLOGY AND GENOMIC MEDICINE Anion gap 13@ANIO 7 - 15 mEq/L [facility] DEPARTMENT OF PATHOLOGY AND GENOMIC MEDICINE BUN 16 6 - 20 mg/dL [facility] DEPARTMENT OF PATHOLOGY AND GENOMIC MEDICINE Creatinine 0.9 0.7 - 1.2 mg/dL [facility] DEPARTMENT OF PATHOLOGY AND GENOMIC MEDICINE Glucose 154 (H) 65 - 99 mg/dL [facility] DEPARTMENT OF PATHOLOGY AND GENOMIC MEDICINE Calcium 9.7 8.3 - 10.2 mg/dL [facility] DEPARTMENT OF PATHOLOGY AND GENOMIC MEDICINE Specimen Plasma specimen Performing Organization Address [facility] Centercode Phone Number [facility] DEPARTMENT OF PATHOLOGY AND [address] [place] [address] [facility] ECG 12 lead (01/24/2018 7:11 PM CDT) Ventricular rate 94 [facility] MUSE Atrial rate 94 [facility] MUSE AK interval 162 [facility] MUSE QRSD interval 146 [facility] MUSE QT interval 414 [facility] MUSE QTC interval 517 [facility] MUSE P axis 1 33 [facility]USE QRS axis 1 -16 [facility] MUSE T wave axis 17 [facility] MUSE EKG impression Normal sinus rhythm-Right bundle branch block-Lateral infarct ( cited on or before 30-JUL-2017)-Inferior infarct (cited on or before 27-JUL-2017 )-Abnormal ECG-In automated comparison with ECG of 30-JUL-2017 09:06,-No significant change was [facility] MUSE found- Performing Organization Address City/[facility]/Zipcode Phone Number [facility] MUSE [address] [place] [address] after 10/17/2017 Insurance Payer Benefit Plan / Group Subscriber ID Type Phone Address COMMERCIAL MISC MISC COMMERCIAL xxxxxxxxxxxx Commercial MISC MEDICAID MISC MEDICAID xxxxxxxxxxxx HMO REPLACEMENT REPLACEMENT Advance Directives Patient has advance care planning documents, and code status on file. For more information, please contact:[place] [address] Code Status Date Activated Date Inactivated Comments Full Code 01/24/2018 5:07 PM 01/29/2018 3:21 PM Code Status decision reached by: Patient Full Code 07/27/2017 10:23 AM 07/31/2017 4:58 PM Code Status decision reached by: Patient Full Code 07/27/2017 5:07 AM 07/27/2017 10:23 AM Code Status decision reached by: Patient
--- OUTSIDE RECORDS SUMMARY | 2018-10-18 07:26 | XMS REPORT | Clinical Summary ---
:1970 Author Organization [facility] Address [address] [place] [address] Care Team Providers Name Role Phone Mark [...] INFLUENZA VACCINE 03/23/2018 Implants Implanted Type Area Electric Organ Assembler Device Shelf Model / Identifier Expiration Date Serial / Lot [employer] Implanted: Qty: 1 on 12/05/2015 Results Not on fileafter 10/17/2017 Advance Directives For more information, please contact:[place] [id number] [place], [place] [phone] Code Status Date Activated Date Inactivated Comments [...]
--- NOTE | 2018-10-18 07:34 | ER ---
Nurse's Notes [facility] Name: Marquis Nelson Age: 48 yrs Sex: Male : 1970 Arrival Date: 10/18/2018 Time: 05:27 Bed 15 Private MD: Diagnosis: Syncope and collapse;Contusion of right back wall of thorax;Atrial fibrillation and flutter Presentation: 10/18 05:30 Presenting complaint: EMS states: patient was in a recliner then after he cough he was rr5 tapping by his to wake him up. he is complaining of right flank area pain and chronic low back pain. pain score of 8/10. due to fall. Transition of care: patient was not received from another setting of care. Onset of symptoms was October 18, 2018. Risk Assessment: Do you want to hurt yourself or someone else? Patient reports no desire to harm self or others. Initial Sepsis Screen: Does the patient meet any 2 criteria? No. Patient's initial sepsis screen is negative. Does the patient have a suspected source of infection? No. Patient's initial sepsis screen is negative. Note newly implanted pacemaker 10/07/18 at left chest area at [place]. CBG 117mg/dl. left shoulder tenderness noted due to pacemaker implant. on blood thinner. Care prior to arrival: None. 05:30 Method Of Arrival: EMS: [facility] rr5 05:30 Acuity: THANH 3 rr5 05:30 Mechanism of Injury: Fall. Trauma event details: Injury occurred: at home. Injury rr5 occurred: October 18, 2018. Trauma Activation: Alert Physician: ED Physician; Name: dr. nolasco; Notified At: 05:35; Arrived At: 05:35 Physician: General Surgeon; Name: ; Notified At: 05:35; Arrived At: Physician: Radiology; Name: Yue; Notified At: 05:35; Arrived At: 05:37 Physician: Respiratory; Name: ; Notified At: 05:35; Arrived At: Physician: Lab; Name: ; Notified At: 05:35; Arrived At: Historical: - Allergies: 05:45 Beta Blockers (sensitive/hypotension); rr5 05:45 Demerol; rr5 05:45 Flomax; rr5 05:45 Ibuprofen; rr5 05:45 Neurontin; rr5 05:45 Skelaxin; rr5 05:45 Spironolactone; rr5 05:45 Stadol; rr5 05:45 tramadol; rr5 05:45 Trazodone; rr5 - Home Meds: 05:45 allopurinol 300 mg Oral tab 1 tab once daily [Active]; amlodipine 5 mg tab 1 tab twice rr5 a day [Active]; Augmentin 875-125 mg Oral tab [Active]; Abilify 10 mg Oral tab 1 tab once daily [Active]; atorvastatin 40 mg Oral tab 1 tab nightly [Active]; clonazepam 1 mg Oral TbDL 1 tab every 6 hours [Active]; Plavix 75 mg Oral tab 1 tab once daily [Active]; Vitamin B-12 Oral [Active]; Pristiq 25 mg Oral Tb24 1 tab once daily [Active]; 06:23 docusate sodium 100 mg Oral tab 2 times per day [Active]; Trulicity 0.75 mg/0.5 mL rr5 subcutaneous pnij once wkly [Active]; ferrous sulfate 325 mg (65 mg iron) Oral tab 1 tab three times a day [Active]; folic acid 1 mg Oral tab 1 tab once daily [Active]; furosemide 20 mg oral tab [Active]; Imdur 30 mg Oral Tb24 1 tab once daily [Active]; Klor-Con M20 20 mEq Oral TbTQ 1 tab once daily [Active]; magnesium oxide 400 mg Oral tab daily [Active]; Glucophage XR 500 mg Oral Tb24 [Active]; methocarbamol 750 mg Oral tab [Active]; metolazone 2.5 mg oral tab [Active]; Nitrostat 0.4 mg SL subl every 5 minutes [Active]; pantoprazole 40 mg Oral TbEC 1 tab once daily [Active]; promethazine 25 mg Oral tab as needed [Active]; Ranexa 1,000 mg oral Tb12 [Active]; Suboxone 8-2 mg sublingual film [Active]; Vitamin B-6 Oral 1 tab daily [Active]; testosterone gel pump [Active]; warfarin 10 mg on MWF and 7.5 mg on ,Th,Sat, Sun Oral tab 1 tab once daily [Active]; - PMHx: 05:45 AAA; ADD/ADHD; Anemia; Anxiety; Atrial Fib; CHF; GERD; High Cholesterol; Hypertension; rr5 Kidney stones; Myocardial infarction; Pulmonary Embolism; R BUNDLE BRANCH BLOCK; Sleep Apnea; - PSHx: 05:45 pacemaker implant; Lithotripsy; Hernia repair; rr5 - Immunization history:: Adult Immunizations not up to date. - Social history:: Smoking status: Patient/guardian denies using tobacco, Patient/guardian denies using alcohol, street drugs. - Immunization history: Last tetanus immunization: unknown. - Family history:: not pertinent. - Ebola Screening: : Patient negative for fever greater than or equal to 101.5 degrees Fahrenheit, and additional compatible Ebola Virus Disease symptoms Patient denies exposure to infectious person Patient denies travel to an Ebola-affected area in the 21 days before illness onset. Screenin:50 Abuse screen: Denies threats or abuse. Denies injuries from another. Nutritional rr5 screening: No deficits noted. Tuberculosis screening: No symptoms or risk factors identified. Fall Risk Fall in past 12 months (25 points). IV access (20 points). Total Uribe Fall Scale indicates High Risk Score (45 or more points). Fall prevention measures have been instituted. Side Rails Up X 2 Placed Close to Nursing Station Frequent Obs/Assessments Occuring Family Present and informed to notify staff if the need to leave the bedside As available patient and family educated on Fall Prevention Program and Strategies. Primary Survey: 05:30 NO uncontrolled hemorrhage observed. A: The patient is alert. Airway: patent. rr5 Breathing/Chest: Respiratory pattern: regular, Respiratory effort: spontaneous. Circulation: Cardiac rhythm: sinus rhythm 05:30 Disability Alert. Exposure/Environment: All clothing and personal items were removed. rr5 swelling at chest and shoulder due to pacemaker at left chest implant There is no evidence of uncontrolled external bleeding. 06:30 Reassessment Airway Airway Breathing/Chest Respiratory pattern Regular Respiratory rr5 effort Spontaneous Unlabored Circulation Heart rhythm Sinus rhythm Disability Alert. Secondary Survey: 05:30 HEENT: No deficits noted. Gastrointestinal: Abdomen is soft, obese. : No signs and/or rr5 symptoms were reported regarding the genitourinary system. Musculoskeletal: Capillary refill < 3 seconds, Range of motion: intact in all extremities, Reports pain in right rib cage flank area. Assessment: 05:30 General: Appears in no apparent distress. uncomfortable, Behavior is calm, cooperative, rr5 appropriate for age. Pain: Complains of pain in right rib cage flank area Pain radiates to back Pain currently is 8 out of 10 on a pain scale. Quality of pain is described as aching, Pain began suddenly, Is intermittent. 05:30 Neuro: Level of Consciousness is awake, alert, obeys commands, Oriented to person, rr5 place, time, situation, Appropriate for age Reports a syncopal episode. EENT: No signs and/or symptoms were reported regarding the EENT system. Cardiovascular: Capillary refill < 3 seconds Patient's skin is warm and dry. Respiratory: Airway is patent Respiratory effort is even, unlabored, Respiratory pattern is regular, symmetrical. GI: No signs and/or symptoms were reported involving the gastrointestinal system. : No signs and/or symptoms were reported regarding the genitourinary system. Derm: Skin is intact, Skin temperature is warm. Musculoskeletal: Capillary refill < 3 seconds, Range of motion: intact in all extremities, Reports pain in right rib cage flank area radiating to back. 05:30 Cardiovascular: Rhythm is sinus rhythm with pacemaker. rr5 06:20 Reassessment: Patient appears in no apparent distress at this time. Patient is alert, rr5 oriented x 3, equal unlabored respirations, skin warm/dry/pink. awaiting for results. 07:00 Reassessment: Patient appears in no apparent distress at this time. Patient is alert, rr5 oriented x 3, equal unlabored respirations, skin warm/dry/pink. asleep on bed comfortably. Patient states symptoms have improved. 07:15 Reassessment: Patient appears in no apparent distress at this time. Patient and/or em family updated on plan of care and expected duration. Pain level reassessed. Patient is alert, oriented x 3, equal unlabored respirations, skin warm/dry/pink. Patient states feeling better. Vital Signs: 05:30 BP 116 / 57; Pulse 64; Resp 18; Temp 97.6; Pulse Ox 98% ; Weight 127.01 kg; Height 5 rr5 ft. 10 in. (177.80 cm); Pain 8/10; 06:00 BP 102 / 60; Pulse 65; Resp 17; Pulse Ox 98% ; rr5 06:52 BP 107 / 61; Pulse 65; Resp 15; Pulse Ox 99% on R/A; rr5 08:10 BP 101 / 64; Pulse 65; Resp 18; Pulse Ox 99% on R/A; Pain 2/10; em 05:30 Body Mass Index 40.18 (127.01 kg, 177.80 cm) rr5 Aldrich Coma Score: 05:30 Eye Response: spontaneous(4). Verbal Response: oriented(5). Motor Response: obeys rr5 commands(6). Total: 15. Trauma Score (Adult): 05:30 Eye Response: spontaneous(1); Verbal Response: oriented(1); Motor Response: obeys rr5 commands(2); Systolic BP: > 89 mm Hg(4); Respiratory Rate: 10 to 29 per min(4); Toño Score: 15; Trauma Score: 12 ED Course: 05:27 Patient arrived in ED. ds1 05:30 Walker Alvarado, NAVJOT is Primary Nurse. rr5 05:30 Arm band placed on. rr5 05:30 Patient maintains SpO2 saturation greater than 95% on room air. rr5 05:33 Jose Nolasco MD is Attending Physician. [facility] 05:33 Thermoregulation: warm blanket given to patient. rr5 05:35 Patient has correct armband on for positive identification. Placed in gown. Bed in low rr5 position. Call light in reach. Side rails up X2. child monitor on. Pulse ox on. NIBP on. 05:37 Triage completed. rr5 05:40 EKG completed in triage. Results shown to MD. rr5 05:40 Inserted saline lock: 20 gauge in right forearm, using aseptic technique. Blood rr5 collected. 06:57 XRAY Chest (1 view) In Process Unspecified. EDMS 07:26 CT Traumagram (Head C Spine CAP W Con) In Process Unspecified. EDMS 08:09 No provider procedures requiring assistance completed. IV discontinued, intact, em bleeding controlled, No redness/swelling at site. Pressure dressing applied. Administered Medications: 06:45 Drug: NS 0.9% 500 ml Route: IV; Rate: bolus; Site: right forearm; rr5 07:20 Follow up: Response: No adverse reaction; IV Status: Completed infusion; IV Intake: rr5 500ml 06:45 Drug: Zofran 4 mg Route: IVP; Site: right forearm; rr5 07:47 Follow up: Response: No adverse reaction em 06:47 Drug: Dilaudid 1 mg Route: IVP; Site: right forearm; rr5 07:47 Follow up: Response: No adverse reaction; Pain is decreased em 07:22 Drug: NS 0.9% 1000 ml Route: IV; Rate: 125 ml/hr; Site: right forearm; rr5 Point of Care Testing: Blood Glucose: 06:50 Blood Glucose: 134 mg/dL; rr5 Ranges: Intake: 07:20 IV: 500ml; Total: 500ml. rr5 Output: 08:10 Urine: 0ml; Total: 0ml. em Outcome: 07:15 awaiting for results.Patient's length of stay extended due to rr5 07:33 Discharge ordered by . ap 08:09 Discharged to home ambulatory, with family. em 08:09 Condition: good 08:09 Discharge instructions given to patient, family, Instructed on discharge instructions, follow up and referral plans. Demonstrated understanding of instructions, follow-up care. 08:11 Patient left the ED. em Signatures: Dispatcher [employer] Jose Joel MD MD cha Munoz, Edgar, [employer] DEPARTMENT SUPERVISOR [employer] DEPARTMENT SUPERVISOR em Bridget Tai ds1 Walker Alvarado, RN RN rr5
--- NOTE | 2018-10-18 07:35 | EDPHYS ---
Physician Documentation [facility] Name: Marquis Nelson Age: 48 yrs Sex: Male : 1970 Arrival Date: 10/18/2018 Time: 05:27 Bed 15 Private MD: ED Physician Jose Nolasco HPI: 10/18 05:42 This 48 yrs old Male presents to ER via EMS with complaints of Syncope. ap 05:42 The patient has experienced syncope, collapsed. Onset: The symptoms/episode ap began/occurred just prior to arrival. Duration: This was a single episode, that lasted an unknown period of time. Context: the episode(s) was witnessed, by family. Associated injury: Back: contusion, decreased range of motion. Associated signs and symptoms: The patient has no apparent associated signs or symptoms. Historical: - Allergies: 05:45 Beta Blockers (sensitive/hypotension); rr5 05:45 Demerol; rr5 05:45 Flomax; rr5 05:45 Ibuprofen; rr5 05:45 Neurontin; rr5 05:45 Skelaxin; rr5 05:45 Spironolactone; rr5 05:45 Stadol; rr5 05:45 tramadol; rr5 05:45 Trazodone; rr5 - Home Meds: 05:45 allopurinol 300 mg Oral tab 1 tab once daily [Active]; amlodipine 5 mg tab 1 tab twice rr5 a day [Active]; Augmentin 875-125 mg Oral tab [Active]; Abilify 10 mg Oral tab 1 tab once daily [Active]; atorvastatin 40 mg Oral tab 1 tab nightly [Active]; clonazepam 1 mg Oral TbDL 1 tab every 6 hours [Active]; Plavix 75 mg Oral tab 1 tab once daily [Active]; Vitamin B-12 Oral [Active]; Pristiq 25 mg Oral Tb24 1 tab once daily [Active]; 06:23 docusate sodium 100 mg Oral tab 2 times per day [Active]; Trulicity 0.75 mg/0.5 mL rr5 subcutaneous pnij once wkly [Active]; ferrous sulfate 325 mg (65 mg iron) Oral tab 1 tab three times a day [Active]; folic acid 1 mg Oral tab 1 tab once daily [Active]; furosemide 20 mg oral tab [Active]; Imdur 30 mg Oral Tb24 1 tab once daily [Active]; Klor-Con M20 20 mEq Oral TbTQ 1 tab once daily [Active]; magnesium oxide 400 mg Oral tab daily [Active]; Glucophage XR 500 mg Oral Tb24 [Active]; methocarbamol 750 mg Oral tab [Active]; metolazone 2.5 mg oral tab [Active]; Nitrostat 0.4 mg SL subl every 5 minutes [Active]; pantoprazole 40 mg Oral TbEC 1 tab once daily [Active]; promethazine 25 mg Oral tab as needed [Active]; Ranexa 1,000 mg oral Tb12 [Active]; Suboxone 8-2 mg sublingual film [Active]; Vitamin B-6 Oral 1 tab daily [Active]; testosterone gel pump [Active]; warfarin 10 mg on MWF and 7.5 mg on T,Th,Sat, Sun Oral tab 1 tab once daily [Active]; - PMHx: 05:45 AAA; ADD/ADHD; Anemia; Anxiety; Atrial Fib; CHF; GERD; High Cholesterol; Hypertension; rr5 Kidney stones; Myocardial infarction; Pulmonary Embolism; R BUNDLE BRANCH BLOCK; Sleep Apnea; - PSHx: 05:45 pacemaker implant; Lithotripsy; Hernia repair; rr5 - Immunization history:: Adult Immunizations not up to date. - Social history:: Smoking status: Patient/guardian denies using tobacco, Patient/guardian denies using alcohol, street drugs. - Immunization history: Last tetanus immunization: unknown. - Family history:: not pertinent. - Ebola Screening: : Patient negative for fever greater than or equal to 101.5 degrees Fahrenheit, and additional compatible Ebola Virus Disease symptoms Patient denies exposure to infectious person Patient denies travel to an Ebola-affected area in the 21 days before illness onset. ROS: 05:42 Constitutional: Negative for fever, chills, and weight loss, Eyes: Negative for injury, ap pain, redness, and discharge, ENT: Negative for injury, pain, and discharge, Neck: Negative for injury, pain, and swelling, Cardiovascular: Negative for chest pain, palpitations, and edema, Respiratory: Negative for shortness of breath, cough, wheezing, and pleuritic chest pain, Abdomen/GI: Negative for abdominal pain, nausea, vomiting, diarrhea, and constipation, : Negative for injury, bleeding, discharge, and swelling, MS/Extremity: Negative for injury and deformity, Skin: Negative for injury, rash, and discoloration, Neuro: Negative for headache, weakness, numbness, tingling, and seizure. 05:42 Back: Positive for decreased range of motion, pain at rest, pain with movement, of the right subscapular area, right mid back and right low back. Exam: 05:42 Constitutional: This is a well developed, well nourished patient who is awake, alert, ap and in no acute distress. Head/Face: Normocephalic, atraumatic. Eyes: Pupils equal round and reactive to light, extra-ocular motions intact. Lids and lashes normal. Conjunctiva and sclera are non-icteric and not injected. Cornea within normal limits. Periorbital areas with no swelling, redness, or edema. ENT: Nares patent. No nasal discharge, no septal abnormalities noted. Tympanic membranes are normal and external auditory canals are clear. Oropharynx with no redness, swelling, or masses, exudates, or evidence of obstruction, uvula midline. Mucous membranes moist. Neck: Trachea midline, no thyromegaly or masses palpated, and no cervical lymphadenopathy. Supple, full range of motion without nuchal rigidity, or vertebral point tenderness. No Meningismus. Chest/axilla: Normal chest wall appearance and motion. Nontender with no deformity. No lesions are appreciated. Cardiovascular: Regular rate and rhythm with a normal S1 and S2. No gallops, murmurs, or rubs. Normal PMI, no JVD. No pulse deficits. Respiratory: Lungs have equal breath sounds bilaterally, clear to auscultation and percussion. No rales, rhonchi or wheezes noted. No increased work of breathing, no retractions or nasal flaring. Abdomen/GI: Soft, non-tender, with normal bowel sounds. No distension or tympany. No guarding or rebound. No evidence of tenderness throughout. Male : Normal genitalia with no discharge or lesions. Skin: Warm, dry with normal turgor. Normal color with no rashes, no lesions, and no evidence of cellulitis. MS/ Extremity: Pulses equal, no cyanosis. Neurovascular intact. Full, normal range of motion. Neuro: Awake and alert, GCS 15, oriented to person, place, time, and situation. Cranial nerves II-XII grossly intact. Motor strength 5/5 in all extremities. Sensory grossly intact. Cerebellar exam normal. Normal gait. Psych: Awake, alert, with orientation to person, place and time. Behavior, mood, and affect are within normal limits. 05:42 Back: pain, that is mild, that is moderate, ROM is painful, normal spinal alignment noted, CVA tenderness, that is mild, that is moderate, is noted on the right, vertebral tenderness, is not appreciated, muscle spasm, is appreciated in the right subscapular area, right mid back and right low back. Vital Signs: 05:30 BP 116 / 57; Pulse 64; Resp 18; Temp 97.6; Pulse Ox 98% ; Weight 127.01 kg; Height 5 rr5 ft. 10 in. (177.80 cm); Pain 8/10; 06:00 BP 102 / 60; Pulse 65; Resp 17; Pulse Ox 98% ; rr5 06:52 BP 107 / 61; Pulse 65; Resp 15; Pulse Ox 99% on R/A; rr5 08:10 BP 101 / 64; Pulse 65; Resp 18; Pulse Ox 99% on R/A; Pain 2/10; em 05:30 Body Mass Index 40.18 (127.01 kg, 177.80 cm) rr5 [place] Score: 05:30 Eye Response: spontaneous(4). Verbal Response: oriented(5). Motor Response: obeys rr5 commands(6). Total: 15. Trauma Score (Adult): 05:30 Eye Response: spontaneous(1); Verbal Response: oriented(1); Motor Response: obeys rr5 commands(2); Systolic BP: > 89 mm Hg(4); Respiratory Rate: 10 to 29 per min(4); [place] Score: 15; Trauma Score: 12 MDM: 05:33 Patient medically screened. [facility] 05:45 Data reviewed: vital signs, nurses notes, lab test result(s), EKG, radiologic studies, [facility] CT scan, plain films. 10/18 05:42 Order name: Basic Metabolic Panel [facility] 10/18 05:42 Order name: CBC with Diff; Complete Time: 06:58 [facility] 10/18 05:42 Order name: LFT's; Complete Time: 06:58 [facility] 10/18 05:42 Order name: Magnesium; Complete Time: 06:58 [facility] 10/18 05:42 Order name: NT PRO-BNP; Complete Time: 06:58 [facility] 10/18 05:42 Order name: PT-INR; Complete Time: 06:58 [facility] 10/18 05:42 Order name: Troponin (emerg Dept Use Only); Complete Time: 06:58 [facility] 10/18 05:42 Order name: XRAY Chest (1 view) [facility] 10/18 05:42 Order name: CT Traumagram (Head C Spine CAP W Con) [facility] 10/18 05:42 Order name: Urine Culture [facility] 10/18 05:42 Order name: Basic Metabolic Panel; Complete Time: 06:58 [facility] 10/18 05:42 Order name: EKG; Complete Time: 05:43 [facility] 10/18 05:42 Order name: Cardiac monitoring; Complete Time: 07:09 [facility] 10/18 05:42 Order name: EKG - Nurse/Tech; Complete Time: 07:09 [facility] 10/18 05:42 Order name: IV Saline Lock; Complete Time: 07:09 [facility] 10/18 05:42 Order name: Labs collected and sent; Complete Time: 07:09 [facility] 10/18 05:42 Order name: O2 Per Protocol; Complete Time: 07:09 [facility] 10/18 05:42 Order name: O2 Sat Monitoring; Complete Time: 07:09 [facility] Administered Medications: 06:45 Drug: NS 0.9% 500 ml Route: IV; Rate: bolus; Site: right forearm; rr5 07:20 Follow up: Response: No adverse reaction; IV Status: Completed infusion; IV Intake: rr5 500ml 06:45 Drug: Zofran 4 mg Route: IVP; Site: right forearm; rr5 07:47 Follow up: Response: No adverse reaction em 06:47 Drug: Dilaudid 1 mg Route: IVP; Site: right forearm; rr5 07:47 Follow up: Response: No adverse reaction; Pain is decreased em 07:22 Drug: NS 0.9% 1000 ml Route: IV; Rate: 125 ml/hr; Site: right forearm; rr5 Point of Care Testing: Blood Glucose: 06:50 Blood Glucose: 134 mg/dL; rr5 Ranges: Critical Glucose Levels:Adult <50 mg/dl or >400 mg/dl <40 mg/dl or >180 mg/dl Disposition: 10/18/18 07:33 Discharged to Home. Impression: Syncope and collapse, Contusion of right back wall of thorax, Atrial fibrillation and flutter. - Condition is Stable. - Discharge Instructions: Chest Contusion, Adult, Near-Syncope, Near-Syncope, [id number], Chest Contusion, [id number], Syncope, [id number]-ry-Evul, Weakness, Klkl-al-[id number], Atrial Fibrillation, Ampc-[id number]. - Medication Reconciliation Form, Thank You Letter, Antibiotic Education, Prescription Opioid Use form. - Follow up: Private Physician; When: 2 - 3 days; Reason: Recheck today's complaints, Continuance of care, Re-evaluation by your physician. - Problem is new. - Symptoms have improved. Signatures: Dispatcher [employer] Jose Joel MD MD cha Munoz, Edgar, SCHOOL PROGRAM DIRECTOR SCHOOL PROGRAM DIRECTOR Walker Casarez, RN RN rr5 Corrections: (The following items were deleted from the chart) 07:34 07:33 10/18/2018 07:33 Discharged to Home. Impression: Syncope and collapse; Contusion ap of right back wall of thorax. Condition is Stable. Discharge Instructions: Chest Contusion, Adult, Near-Syncope, Near-Syncope, Arfm-kl-[id number], Chest Contusion, Rxeu-sb-Imzy, Syncope, Glik-nh-Watx, Weakness, Qazq-hr-Vowi. Forms are Medication Reconciliation Form, Thank You Letter, Antibiotic Education, Prescription Opioid Use. Follow up: Private Physician; When: 2 - 3 days; Reason: Recheck today's complaints, Continuance of care, Re-evaluation by your physician. Problem is new. Symptoms have improved. ap 07:47 05:42 Urine Dipstick-Ancillary ordered. ap em 08:11 07:34 10/18/2018 07:33 Discharged to Home. Impression: Syncope and collapse; Contusion em of right back wall of thorax; Atrial fibrillation and flutter. Condition is Stable. Discharge Instructions: Chest Contusion, Adult, Near-Syncope, Near-Syncope, Rbqc-jf-Eluy, Chest Contusion, Fmpt-fd-Jpit, Syncope, Rlcw-hf-[id number], Weakness, [id number]. Forms are Medication Reconciliation Form, Thank You Letter, Antibiotic Education, Prescription Opioid Use. Follow up: Private Physician; When: 2 - 3 days; Reason: Recheck today's complaints, Continuance of care, Re-evaluation by your physician. Problem is new. Symptoms have improved. ap
--- OUTSIDE RECORDS SUMMARY | 2018-10-18 07:37 | XMS REPORT | Continuity of Care Document ---
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 [place] Congestive heart Resolved Problem 05/20/2016 2L fluid failure<sup>1</sup> restrictio [place] n/24hrs Diabetes Resolved Problem 05/20/2016 [facility] Hypercholesteremia Resolved Problem 05/20/2016 [facility] Hypertension Resolved Problem 05/20/2016 [facility] Kidney stone Resolved Problem 05/20/2016 [facility] Heart Resolved Problem 05/20/2016 December 04, attack<sup>2</sup> 2016 [place] Bundle branch block, Resolved Problem 05/20/2016 right [place] Sleep apnea Resolved Problem 05/20/2016 [facility] TUBULO-INTERSTITIAL Active [facility] NEPHRITIS, NOT [facility] [place] CHEST PAIN, Active [facility] UNSPECIFIED [place] Medications Medication Details Route Status Patient Ordering Order Source Instructions Provider Date Aspirin 81 mg, 1 tab, Inactive Route: PO, Drug 2015 [place] form: ECTAB, ONCE, Dosing Weight 128.636, kg, Priority: STAT, Start date: 05/17/16 17:16:00 [employer], Stop date: 05/17/16 17:16:00 CSTNotes: Do not crush or chew. (Same As: Ecotrin) Saline Flush 10 mL, Route: Inactive 0.9% IVP, Drug Form: 2015 [place] INJ, Dosing Weight 128.636, kg, PRN, PRN Line Flush, Start date: 05/17/16 15:48:00 [employer], Duration: 30 day, Stop date: 06/16/16 15:47:00 CSTNotes: (Same as: BD Posiflush) Plavix 75 mg, 1 tab, No Longer Route: PO, Drug Active 2015 [place] form: TAB, Daily, Dosing Weight 131.7, kg, Start date: 05/07/16 9:00:00 [employer], Duration: 30 day, Stop date: 06/05/16 9:00:00 CSTNotes: (Same As: Plavix) metoprolol 25 mg 25 mg=1 tab, PO, Active oral tablet, Daily, # 30 tab, 2015 [place] extended release 0 Refill(s) Protonix 40 mg, 1 tab, Inactive Route: PO, Drug 2015 [place] form: ECTAB, Before Dinner, Dosing Weight 131.7, kg, Start date: 05/06/16 16:30:00 [employer], Duration: 30 day, Stop date: 06/04/16 16:30:00 CSTNotes: Tablet should not be chewed or crushed. (Same as: Protonix) Lisinopril 2.5 mg, 0.5 tab, Inactive Route: PO, Drug 2015 [place] form: TAB, Daily, Dosing Weight 131.7, kg, Start date: 05/06/16 9:00:00 [employer], Duration: 30 day, Stop date: 06/04/16 9:00:00 CSTNotes: (Same as: Prinivil, Zestril) Aspirin 325 MG 325 mg, 1 tab, Inactive Oral Tablet Route: PO, Drug 2015 [place] form: TAB, Daily, Dosing Weight 127.273, kg, Start date: 05/06/16 9:00:00 [employer], Duration: 30 day, Stop date: 06/04/16 9:00:00 CSTNotes: Take with food. atorvastatin 40 40 mg=1 tab, PO, Active mg oral tablet Bedtime, # 90 2015 [place] tab, 1 Refill(s) Alprazolam 1 MG 1 mg, 2 tab, No Longer Oral Tablet Route: PO, Drug Active 2015 [place] [Xanax] form: TAB, Q8H, Dosing Weight 131.7, kg, PRN Anxiety, Start date: 05/05/16 22:49:00 [employer], Duration: 30 day, Stop date: 06/04/16 22:48:00 CSTNotes: With food or milk (Same as: Xanax) Lipitor 80 mg, 2 tab, No Longer Route: PO, Drug Active 2015 [place] form: TAB, Bedtime, Dosing Weight 127.273, kg, Start date: 05/05/16 21:00:00 [employer], Duration: 30 day, Stop date: 06/03/16 21:00:00 CSTNotes: (Same as: Lipitor) Clindamycin 300 mg, 2 cap, No Longer Route: PO, Drug Active 2015 [place] form: CAP, ABXQ6H, Dosing Weight 127.273, kg, Start date: 05/05/16 21:00:00 [employer], Stop date: 06/04/16 15:00:00 CSTNotes: (Same As: Cleocin) Saline Flush 10 ml, Route: No Longer 0.9% IVP, Drug Form: Active 2015 [place] INJ, Dosing Weight 127.273, kg, Q12H, Start date: 05/05/16 21:00:00 [employer], Duration: 30 day, Stop date: 06/04/16 9:00:00 CSTNotes: preservative free. Insulin, Aspart, 1 unit, 0.01 mL, No Longer Human Route: SUB-Q, Active 2015 [place] Drug form: SOLN, Bedtime, Dosing Weight 127.273, kg, PRN Blood Glucose Results, Start date: 05/05/16 20:27:00 [employer], Duration: 30 day, Stop date: 06/04/16 20:26:00 CSTNotes: Roll in palms of hands gently; Do not shake vigorously. (Same as: NovoLOG) "single patient use only" WASTE: F/P - Black; E - Municipal Trash Bin Stable for 28 days at room temperature. Expires in days from Da te Glucagon 1 mg, Route: IM, No Longer Drug form: Active 2015 [place] PDR/INJ, PRN, Dosing Weight 127.273, kg, PRN Blood Glucose Results, Start date: 05/05/16 20:27:00 [employer], Duration: 30 day, Stop date: 06/04/16 20:26:00 [employer] Dextrose 50% 12.5 gm, 25 mL, No Longer Syringe Route: IVP, Drug Active 2015 [place] Form: INJ, Dosing Weight 127.273, kg, PRN, PRN Blood Glucose Results, Start date: 05/05/16 20:27:00 [employer], Duration: 30 day, Stop date: 06/04/16 20:26:00 [employer] Morphine 2 mg, 1 mL, No Longer Route: IVP, Drug Active 2015 [place] form: INJ, Q2H, Dosing Weight 127.273, kg, PRN as needed for chest pain, Priority: STAT, Start date: 05/05/16 20:00:00 [employer], Duration: 30 day, Stop date: 06/04/16 19:59:00 CSTNotes: (Same as:MORPhine Sulfate) Plavix 75 mg, 1 tab, Inactive Route: PO, Drug 2015 [place] form: TAB, ONCE, Dosing Weight 127.273, kg, Priority: STAT, Start date: 05/05/16 19:58:00 [employer], Stop date: 05/05/16 19:58:00 CSTNotes: (Same As: Plavix) Saline Flush 10 ml, Route: No Longer 0.9% IVP, Drug Form: Active 2015 [place] INJ, Dosing Weight 127.273, kg, PRN, PRN Line Flush, Start date: 05/05/16 19:55:00 [employer], Duration: 30 day, Stop date: 06/04/16 19:54:00 CSTNotes: (Same as: BD Posiflush) Albuterol 0.833 3 ml, Route: No Longer MG/ML / NEB, Drug Form: Active 2015 [place] Ipratropium SOLN, Dosing [place] 0.167 Weight 127.273, MG/ML Inhalant kg, PRN, PRN Solution Respiratory Protocol, Start date: 05/05/16 19:55:00 [employer], Duration: 30 day, Stop date: 06/04/16 19:54:00 CSTNotes: (Same as: Duoneb) Nystatin 100 1 appl, Route: No Longer UNT/MG Topical TOP, PRN, Drug Active 2015 [place] Powder form: PWDR, PRN For Fungal Prophylaxis, Start date: 05/05/16 19:55:00 [employer], Duration: 30 day, Stop date: 06/04/16 19:54:00 [...] Volume: 500 mL, Start date: 05/05/16 19:43:00 [employer], Duration: 30 day, Stop date: 06/04/16 19:42:00 [employer] Heparin 60 Route: IVP, PRN, No Longer unit/kg Bolus 5,800 unit, 5.8 Active 2015 [place] (Heparin Dosing mL, Drug form: Weight) INJ, PRN, Heparin Protocol, Start date: 05/05/16 19:43:00 [employer] Stop date: 06/04/16 19:42:00 [employer] Heparin 30 Route: IVP, PRN, No Longer unit/kg Bolus 2,900 unit, 2.9 Active 2015 [place] (Heparin Dosing mL, Drug form: Weight) INJ, PRN, Heparin Protocol, Start date: 05/05/16 19:43:00 [employer] Stop date: 06/04/16 19:42:00 [employer] Heparin - one 4,000 unit, 4 Inactive time bolus for mL, Route: IVP, 2016 [place] ACS Drug form: INJ, ONCE, Dosing Weight 127.273, kg, Priority: STAT, Start date: 05/05/16 19:43:00 [employer], Stop date: 05/05/16 19:43:00 [employer] Morphine 4 mg, 1 mL, Inactive Route: IVP, Drug 2015 [place] form: INJ, ONCE, Dosing Weight 127.273, kg, Priority: STAT, Start date: 05/05/16 19:25:00 [employer], Stop date: 05/05/16 19:25:00 CSTNotes: (Same as:MORPhine Sulfate) Nitroglycerin 1 inch, Route: Inactive 0.02 MG/MG TOP, Dosing 2015 [place] Topical Ointment Weight 127.273, kg, ONCE, STAT, Start date: 05/05/16 17:40:00 [employer], Stop date: 05/05/16 17:40:00 [employer] Aspirin 81 MG 243 mg, Route: Inactive Chewable Tablet PO, Drug form: 2015 [place] CHEWTAB, ONCE, Dosing Weight 127.273, kg, Priority: STAT, Start date: 05/05/16 17:17:00 [employer], Stop date: 05/05/16 17:17:00 [employer] Morphine 4 mg, Route: Inactive IVP, ONCE, 2015 [place] Dosing Weight 127.273, kg, Priority: STAT, Start date: 05/05/16 17:15:00 [employer], Stop date: 05/05/16 17:15:00 [employer] Saline Flush 10 mL, Route: No Longer 0.9% IVP, Drug Form: Active 2015 [place] INJ, Dosing Weight 128.182, kg, PRN, PRN Line Flush, Start date: 05/05/16 16:55:00 [employer], Duration: 30 day, Stop date: 06/04/16 16:54:00 CSTNotes: preservative free. Acetaminophen 1 - 2 tab, PO, No Longer 300 MG / Codeine Q4H, PRN Pain, X Active 2015 [place] Phosphate 30 MG 2 day, # 20 tab, Oral Tablet 0 Refill(s) [Tylenol with Codeine #3] Morphine 4 mg, 1 mL, Inactive Route: IVP, Drug 2015 [place] form: INJ, ONCE, Dosing Weight 128.182, kg, Priority: STAT, Start date: 04/25/16 19:51:00 CDT, Stop date: 04/25/16 19:51:00 CDTNotes: (Same as:MORPhine Sulfate) Zofran 4 mg, 2 mL, Inactive Route: IVP, Drug 2015 [place] form: INJ, ONCE, Dosing Weight 128.182, kg, Priority: STAT, Start date: 04/25/16 18:23:00 CDT, Stop date: 04/25/16 18:23:00 CDTNotes: (Same as: Zofran) MEDICATION WASTE Product Size: 4 mg Product Wasted: ___ mg Morphine 4 mg, 1 mL, Inactive Route: IVP, Drug 2015 [place] form: INJ, ONCE, Dosing Weight 128.182, kg, Priority: STAT, Start date: 04/25/16 18:23:00 CDT, Stop date: 04/25/16 18:23:00 CDTNotes: (Same as:MORPhine Sulfate) Saline Flush 10 mL, Route: Inactive 0.9% IVP, Drug Form: 2015 [place] INJ, Dosing Weight 129.091, kg, PRN, PRN Line Flush, Start date: 04/25/16 18:07:00 CDT, Duration: 30 day, Stop date: 05/25/16 17:06:00 CSTNotes: (Same as: BD Posiflush) Acetaminophen 1 tab, PO, Q6H, Active 300 MG / Codeine PRN Pain, X 5 2015 [place] Phosphate 30 MG day, # 20 tab, 0 Oral Tablet Refill(s) Morphine 4 mg, Route: Inactive IVP, ONCE, 2015 [place] Dosing Weight 129.091, kg, Priority: STAT, Start date: 03/05/16 8:44:00 CDT, Stop date: 03/05/16 8:44:00 CDT Ondansetron 4 mg, Route: Inactive IVP, Drug form: 2015 [place] INJ, ONCE, Dosing Weight 129.091, kg, Priority: STAT, Start date: 03/05/16 7:35:00 CDT, Stop date: 03/05/16 7:35:00 CDT Aspirin 324 mg, Route: Inactive PO, ONCE, Dosing 2015 [place] Weight 129.091, kg, Priority: STAT, Start date: 03/05/16 7:22:00 CDT, Stop date: 03/05/16 7:22:00 CDT Morphine 2 mg, Route: Inactive IVP, ONCE, 2015 [place] Dosing Weight 129.091, kg, Priority: STAT, Start date: 03/05/16 7:22:00 CDT, Stop date: 03/05/16 7:22:00 CDT Saline Flush 10 mL, Route: Inactive 0.9% IVP, Drug Form: 2015 [place] INJ, Dosing Weight 129.091, kg, PRN, PRN Line Flush, Start date: 03/05/16 7:22:00 CDT, Duration: 30 day, Stop date: 04/04/16 7:21:00 CDTNotes: (Same as: BD Posiflush) Dilaudid 0.5 mg, 0.5 mL, Inactive Route: IVP, Drug 2015 [place] form: INJ, ONCE, Dosing Weight 128.636, kg, Priority: STAT, Start date: 03/02/16 7:40:00 CDT, Stop date: 03/02/16 7:40:00 CDTNotes: Same as: Dilaudid Ketorolac 30 mg, 1 mL, Inactive Route: IVP, Drug 2015 [place] form: INJ, ONCE, Dosing Weight 128.636, kg, Priority: STAT, Start date: 03/02/16 5:25:00 CDT, Stop date: 03/02/16 5:25:00 CDTNotes: (Same as:Toradol) IV bolus must be given >15 seconds. Give IM administration slowly and deeply into the muscle. Not for use > 4 days MEDICATION WASTE Product Size: 30 mg Product Wasted: ___ mg Morphine 4 mg, 1 mL, Inactive Route: IVP, Drug 2015 [place] form: INJ, ONCE, Dosing Weight 128.636, kg, Priority: STAT, Start date: 03/02/16 5:25:00 CDT, Stop date: 03/02/16 5:25:00 CDTNotes: (Same as:MORPhine Sulfate) Ondansetron 4 mg, 2 mL, Inactive Route: IVP, Drug 2015 [place] form: INJ, ONCE, Dosing Weight 128.636, kg, Priority: STAT, Start date: 03/02/16 5:25:00 CDT, Stop date: 03/02/16 5:25:00 CDTNotes: (Same as: Zofran) MEDICATION WASTE Product Size: 4 mg Product Wasted: ___ mg Saline Flush 10 mL, Route: Inactive 0.9% IVP, Drug Form: 2015 [place] INJ, Dosing Weight 128.636, kg, PRN, PRN Line Flush, Start date: 03/02/16 5:25:00 CDT, Duration: 30 day, Stop date: 04/01/16 5:24:00 CDTNotes: (Same as: BD Posiflush) Sodium Chloride 1,000 mL, 2,000 Inactive 0.154 MEQ/ML ml/hr, Infuse 2015 [place] Injectable Over: 30 Solution minutes, Route: IV, 1,000, Drug form: INJ, ONCE, Priority: STAT, Dosing Weight 128.636 kg, Start date: 03/02/16 5:25:00 CDT, Duration: 1 doses or times, Stop date: 03/02/16 5:25:00 CDT Acetaminophen 1 tab, PO, Q6H, Active 300 MG / Codeine PRN Pain, # 28 2015 [place] Phosphate 30 MG tab, 0 Refill(s) Oral Tablet [Tylenol with Codeine #3] Protonix 40 mg, 1 tab, No Longer Route: PO, Drug Active 2015 [place] form: ECTAB, Before Breakfast, Dosing Weight 129.545, kg, Start date: 02/18/16 7:30:00 CDT, Duration: 30 day, Stop date: 03/18/16 7:30:00 CDTNotes: Tablet should not be chewed or crushed. (Same as: Protonix) Lipitor 80 mg, 2 tab, No Longer Route: PO, Drug Active 2015 [place] form: TAB, Bedtime, Dosing Weight 129.545, kg, Start date: 02/17/16 21:00:00 CDT, Duration: 30 day, Stop date: 03/17/16 21:00:00 CDTNotes: (Same as: Lipitor) Morphine 2 mg, 1 mL, No Longer Route: IVP, Drug Active 2015 [place] form: INJ, Q4H, Dosing Weight 129.545, kg, PRN Pain Score 7-10, Start date: 02/17/16 11:54:00 CDT, Duration: 30 day, Stop date: 03/18/16 11:53:00 CDTNotes: (Same as:MORPhine Sulfate) Lovenox 40 mg, 0.4 mL, No Longer Route: SUB-Q, Active 2015 [place] Drug form: INJ, [id number], Dosing Weight 129.545, kg, Start date: 02/17/16 10:00:00 CDT, Duration: 30 day, Stop date: 03/17/16 10:00:00 CDTNotes: (Same as: Lovenox) Lisinopril 2.5 mg, 0.5 tab, No Longer Route: PO, Drug Active 2015 [place] form: TAB, Daily, Dosing Weight 129.545, kg, Start date: 02/17/16 9:55:00 CDT, Duration: 30 day, Stop date: 03/18/16 9:00:00 CDTNotes: (Same as: Prinivil, Zestril) Imdur 30 mg, 1 tab, No Longer Route: PO, Drug Active 2015 [place] form: ERTAB, QAM, Dosing Weight 129.545, kg, Start date: 02/17/16 9:54:00 CDT, Duration: 30 day, Stop date: 03/18/16 9:00:00 CDTNotes: (Same as:Imdur) "Do Not Crush" Take on empty stomach/ full glass of water. Do not crush Plavix 75 mg, 1 tab, No Longer Route: PO, Drug Active 2015 [place] form: TAB, Daily, Dosing Weight 129.545, kg, Start date: 02/17/16 9:54:00 CDT, Duration: 30 day, Stop date: 03/18/16 9:00:00 CDTNotes: (Same As: Plavix) Aspirin 81 MG 81 mg, 1 tab, No Longer Enteric Coated Route: PO, Drug Active 2015 [place] Tablet form: ECTAB, Daily, Dosing Weight 129.545, kg, Start date: 02/17/16 9:54:00 CDT, Duration: 30 day, Stop date: 03/18/16 9:00:00 CDTNotes: Do not crush or chew. (Same As: Ecotrin) Zofran ODT 4 mg, 1 tab, No Longer Route: PO, Drug Active 2015 [place] form: TABDIS, Q12H, Dosing Weight 129.545, kg, PRN Nausea, Start date: 02/17/16 9:25:00 CDT, Duration: 30 day, Stop date: 03/18/16 9:24:00 CDTNotes: (Same as: Zofran ODT) Nitroglycerin 0.4 mg, 1 tab, No Longer 0.4 MG Route: SL, Drug Active 2015 [place] Sublingual form: TAB, Tablet Q5Min, Dosing [Nitrostat] Weight 129.545, kg, PRN Chest Pain, Start date: 02/17/16 9:25:00 CDT, Duration: 30 day, Stop date: 03/18/16 9:24:00 CDTNotes: (Same as:Nitroquick, Nitrostat) "Do Not Crush" Sublingual tablet Alprazolam 1 MG 1 mg, 1 tab, No Longer Oral Tablet Route: PO, Drug Active 2015 [place] [Xanax] form: TAB, Q8H, Dosing Weight 129.545, kg, PRN Anxiety, Start date: 02/17/16 9:23:00 CDT, Duration: 30 day, Stop date: 03/18/16 9:22:00 CDTNotes: With food or milk (Same as: Xanax) pneumococcal 0.5 mL, Route: Inactive capsular IM, Drug Form: 2016 [place] polysaccharide INJ, Daily, type 1 vaccine / [...] No Longer Disintegrating Q12H, PRN Active 2015 [place] Tablet [Zofran] Nausea, 0 Refill(s) Aspirin 81 MG 81 mg=1 tab, PO, Active Enteric Coated Daily, # 90 tab, 2015 [place] Tablet 3 Refill(s) Nitroglycerin 0.4 mg=1 tab, No Longer 0.4 MG SL, Q5Min, PRN Active 2015 [place] Sublingual Chest Pain, # Tablet 100 tab, 0 [Nitrostat] Refill(s) pantoprazole 40 40 mg=1 tab, PO, Active MG Enteric Daily, # 30 tab, 2016 [place] Coated Tablet 0 Refill(s) [Protonix] 24 HR Isosorbide 30 mg=1 tab, PO, Active Mononitrate 30 QAM, # 30 tab, 0 2015 [place] MG Extended Refill(s) Release Tablet [Imdur] Hydroxyzine 25 mg=1 tab, PO, No Longer Hydrochloride 25 Bedtime, PRN Active 2016 [place] MG Oral Tablet Sleep, # 30 tab, 0 Refill(s) Furosemide 20 MG 20 mg=1 tab, PO, Active Oral Tablet Daily, # 30 tab, 2016 [place] 0 Refill(s) Potassium 20 mEq=1 tab, Active Chloride 20 MEQ PO, Daily, # 90 2016 [place] Extended Release tab, 1 Refill(s) Tablet [Klor-Con] Alprazolam 1 MG 1 mg=1 tab, PO, Active Oral Tablet Q8H, PRN 2016 [place] [Xanax] Anxiety, 0 Refill(s) Metformin 1 tab, PO, BID, Active hydrochloride # 60 tab, 0 2015 [place] 500 MG / Refill(s) repaglinide 1 MG Oral Tablet Acetaminophen 1 tab, PO, Q6H, No Longer 300 MG / Codeine PRN Pain, # 28 Active 2016 [place] Phosphate 30 MG tab, 0 Refill(s) Oral Tablet [Tylenol with Codeine #3] lisinopril 2.5 2.5 mg=1 tab, Active mg oral tablet PO, Daily, # 30 2016 [place] tab, 0 Refill(s) clopidogrel 75 75 mg=1 tab, PO, Active MG Oral Tablet Daily, # 30 tab, 2016 [place] [Plavix] 0 Refill(s) atorvastatin 80 80 mg=1 tab, PO, Active MG Oral Tablet Bedtime, # 30 2016 [place] [Lipitor] tab, 0 Refill(s) Ceftriaxone 1 gm, Route: Inactive IVPB, Drug form: 2015 [place] PDR/INJ, ONCE, Dosing Weight 129.545, kg, Priority: STAT, Start date: 02/17/16 7:01:00 CDT, Stop date: 02/17/16 7:01:00 CDT Dilaudid 0.5 mg, Route: Inactive IVP, ONCE, 2015 [place] Dosing Weight 129.545, kg, Priority: STAT, Start date: 02/17/16 6:28:00 CDT, Stop date: 02/17/16 6:28:00 CDT Zofran 4 mg, Route: Inactive IVP, Drug form: 2015 [place] INJ, ONCE, Dosing Weight 129.545, kg, Priority: STAT, Start date: 02/17/16 5:32:00 CDT, Stop date: 02/17/16 5:32:00 CDT Dilaudid 0.5 mg, Route: Inactive IVP, ONCE, 2015 [place] Dosing Weight 129.545, kg, Priority: STAT, Start date: 02/17/16 5:32:00 CDT, Stop date: 02/17/16 5:32:00 CDT Saline Flush 10 mL, Route: Inactive 0.9% IVP, Drug Form: 2015 [place] INJ, kg, PRN, PRN Line Flush, Start date: 02/17/16 5:19:00 CDT, Duration: 30 day, Stop date: 03/18/16 5:18:00 CDTNotes: (Same as: BD Posiflush) Allergies, Adverse Reactions, Alerts Substance Category Reaction Severity Reaction Status Date Comments Source type Reported beta Assertion Drug Active blockers allergy [place] Flomax Assertion Drug Active allergy [place] Stadol Assertion Drug Active MH allergy [place] traMADol Assertion Drug Active MH allergy [place] Immunizations Immunization Date Given Site Status Last Updated Comments Source pneumococcal 02/17/2016 Not Given [facility] 23-valent vaccine Results Order Name Results Value Reference Date Interpretation Comments Source Range URINE AND UA Mucus Few /LPF None Seen 05/17 STOOL /LPF [place] URINE AND UA Leuk Est Negative Negative 05/17 STOOL [place] (05/17/16 5:16 PM) URINE AND UA Bili Negative Negative 05/17 STOOL [place] *NA* (05/17/16 5:16 PM) URINE AND UA Ketones Negative Negative 05/17 STOOL mg/dL mg/dL [place] URINE AND UA Nitrite Negative Negative 05/17 STOOL [place] (05/17/16 5:16 PM) URINE AND UA 0.2 EU/dL 0.1 - 1.0 05/17 STOOL Urobilinogen [place] URINE AND UA Turbidity Clear Clear 05/17 STOOL [place] (05/17/16 5:16 PM) URINE AND UA Blood Negative Negative 05/17 STOOL [place] (05/17/16 5:16 PM) URINE AND UA Glucose Negative Negative 05/17 STOOL mg/dL mg/dL [place] URINE AND UA Protein Negative Negative 05/17 STOOL mg/dL mg/dL [place] URINE AND UA pH 6.5 5.0 - 8.0 05/17 STOOL [place] URINE AND UA Spec Grav 1.020 <=1.030 05/17 STOOL [place] URINE AND UA Color Yellow Yellow 05/17 STOOL [place] *NA* (05/17/16 5:16 PM) URINE AND UA Sq Epi Rare /LPF Few /LPF 05/17 STOOL [place] URINE AND UA Bacteria Occasional None Seen 05/17 STOOL /HPF /HPF [place] URINE AND UA RBC 0-2 /HPF 0 - 2 05/17 STOOL [place] URINE AND UA WBC 0-2 /HPF None Seen 05/17 STOOL /HPF /2015 [place] CARDIAC Total CK 74 unit/L 12 - 191 05/17 ENZYMES [place] CARDIAC CK MB 0.8 ng/mL 0.5 - 3.6 05/17 ENZYMES [place] CARDIAC Troponin-I null 0.00 - 05/17 ENZYMES 0.40 [place] CARDIAC CK-MB INDEX 1.1 0.0 - 2.5 05/17 [place] CHEM PANEL eGFR 79 05/17 Result Comment: [...] is not recommended in the following populations: [place] 3m2 Individuals with unstable creatinine concentrations, including [...] Lvl 106 meq/L 95 - 109 05/17 [place] CHEM PANEL CO2 28 meq/L 24 - 32 05/17 [place] CHEM PANEL Calcium Lvl 8.8 mg/dL 8.5 - 10.5 05/17 [place] CHEM PANEL Bili Total 0.4 mg/dL 0.2 - 1.3 05/17 [place] CHEM PANEL AGAP 9.7 meq/L 10.0 - 05/17 20.0 [place] CHEM PANEL B/C Ratio 14 6 - 25 05/17 [place] CHEM PANEL ASPARTATE 14 unit/L 0 - 37 05/17 MH [place] CHEM PANEL Total 7.7 g/dL 6.4 - 8.4 05/17 [place] CHEM PANEL Globulin 4.4 g/dL 2.7 - 4.2 05/17 [place] CHEM PANEL A/G Ratio 0.8 0.7 - 1.6 11 [place] CHEM PANEL Glucose Lvl 148 mg/dL 70 - 99 05/17 [place] CHEM PANEL BUN 15 mg/dL 7 - 22 05/17 [place] CHEM PANEL Creatinine 1.11 mg/dL 0.50 - 05/17 MH Lvl 1.40 [place] CHEM PANEL Sodium Lvl 140 meq/L 135 - 145 05/17 [place] CHEM PANEL Potassium 3.7 meq/L 3.5 - 5.1 05/17 MH Lvl [place] CHEM PANEL Albumin Lvl 3.3 g/dL 3.5 - 5.0 05/17 [place] CHEM PANEL Alk Phos 129 unit/L 39 - 136 05/17 [place] CHEM PANEL ALANINE 30 unit/L 0 - 65 05/17 AMINOTRANS [place] RAS HEMATOLOGY MPV 7.3 fL 7.4 - 10.4 05/17 [place] HEMATOLOGY Platelet 281 K/CMM 133 - 450 05/17 [place] HEMATOLOGY RBC X 10x6 5.30 M/CMM 4.70 - 05/17 MH 6.10 [place] HEMATOLOGY WBC X 10x3 10.5 K/CMM 3.7 - 10.4 05/17 [place] HEMATOLOGY Hgb 12.4 g/dL 14.0 - 05/17 MH 18.0 [place] HEMATOLOGY Hct 36.8 % 42.0 - 05/17 MH 54.0 [place] HEMATOLOGY MCV 69.4 fL 80.0 - 05/17 MH 94.0 [place] HEMATOLOGY MCH 23.4 pg 27.0 - 05/17 MH 31.0 [place] HEMATOLOGY MCHC 33.7 g/dL 32.0 - 05/17 MH 36.0 /2015 [place] HEMATOLOGY RDW 17.1 % 11.5 - 05/17 MH 14.5 /2015 [place] HEMATOLOGY aPTT 35.4 s 22.9 - 05/17 35.8 /2015 [place] HEMATOLOGY PROTIME 13.1 s 12.0 - 05/17 MH 14.7 /2015 [place] HEMATOLOGY INR 0.97 0.85 - 05/17 MH 1.17 /2015 [place] HEMATOLOGY Eosinophils 1.1 % 0.0 - 4.0 05/17 [place] HEMATOLOGY Monocytes 6.7 % 2.0 - 12.0 05/17 [place] HEMATOLOGY Segs-Bands # 7.2 K/CMM 1.5 - 8.1 05/17 [place] HEMATOLOGY Basophils 1.1 % 0.0 - 1.0 05/17 [place] HEMATOLOGY Lymphocytes 2.4 K/CMM 1.0 - 5.5 05/17 # /2015 [place] [facility] Monocytes # 0.7 K/CMM 0.0 - 0.8 05/17 [place] [facility] Eosinophils 0.1 K/CMM 0.0 - 0.5 05/17 # /2015 [place] [facility]EMAT[facility] Microcyte 2+ None Seen 05/17 [place] *ABN* (05/17/16 4:01 PM) HEMATOLOGY Basophils # 0.1 K/CMM 0.0 - 0.2 05/17 [place] [facility] Lymphocytes 22.3 % 20.0 - 05/17 40.0 [place] [facility]EMAT[facility] Segs 68.8 % 45.0 - 05/17 75.0 [place] Chest 1view Chest 1view Portable chest: The cardiomediastinal silhouette and pulmonary vasculature are within normal limits. The lungs and pleural spaces are clear. There are no acute osseous abnormalities. There is no significant change compared to 05/05/2016. 05/17 - [facility] DX DX /2015 - [place] IMPRESSION: Read by: Rizwan Barnhart MD Dictated Date/time: 05/17/16 16:37 Electronically Signed by: Rizwan Barnhart MD 05/17/16 16:38 FINAL REPORT No acute radiographic abnormality in the chest. [id number] CARDIAC Troponin-I null 0.00 - 05/06 ENZYMES 0.40 [place] [facility] aPTT 50.1 s 22.9 - 05/06 MH 35.8 2016 [place] ELECTROLYTE AGAP 10.8 meq/L 10.0 - 05/06 S 20.0 [place] ELECTROLYTE CO2 28 meq/L 24 - 32 05/06 S [place] ELECTROLY[facility] Chloride Lvl 105 meq/L 95 - 109 05/06 S [place] ELECTROLYTE Calcium Lvl 8.7 mg/dL 8.5 - 10.5 05/06 S [place] ELECTROLY[facility] eGFR 103 05/06 Result Comment: The [...] is not recommended in the following populations: [address] Individuals with unstable creatinine concentrations, including [...] 123 mg/dL 70 - 99 05/06 S [place] [facility]LECTR[facility] Creatinine 0.86 mg/dL 0.50 - 05/06 S Lvl 1.40 [place] [facility] BUN 18 mg/dL 7 - 22 05/06 S [place] [facility]LECT[facility] Potassium 3.8 meq/L 3.5 - 5.1 05/06 S Lvl [place] ELECTROLY[facility] Sodium Lvl 140 meq/L 135 - 145 05/06 S [place] HEMATOLOGY Microcyte 2+ None Seen 05/06 [place] *ABN* (05/06/16 2:42 AM) HEMATOLOGY Eosinophils 0.2 K/CMM 0.0 - 0.5 05/06 # /2015 [place] HEMATOLOGY Monocytes # 0.8 K/CMM 0.0 - 0.8 05/06 [place] HEMATOLOGY Monocytes 7.9 % 2.0 - 12.0 05/06 [place] HEMATOLOGY Lymphocytes 2.5 K/CMM 1.0 - 5.5 05/06 MH # /2016 [place] HEMATOLOGY Segs-Bands # 6.5 K/CMM 1.5 - 8.1 05/06 [place] HEMATOLOGY Basophils 0.4 % 0.0 - 1.0 05/06 MH [place] HEMATOLOGY Eosinophils 1.7 % 0.0 - 4.0 05/06 /2015 [place] HEMATOLOGY Lymphocytes 24.8 % 20.0 - 05/06 MH 40.0 [place] HEMATOLOGY Segs 65.2 % 45.0 - 05/06 MH 75.0 [place] HEMATOLOGY RBC X 10x6 5.11 M/CMM 4.70 - 05/06 MH 6.10 [place] HEMATOLOGY Hct 36.2 % 42.0 - 05/06 MH 54.0 [place] HEMATOLOGY Hgb 11.8 g/dL 14.0 - 05/06 MH 18.0 [place] HEMATOLOGY Platelet 272 K/CMM 133 - 450 05/06 [place] HEMATOLOGY RDW 17.1 % 11.5 - 05/06 14. [place] HEMATOLOGY MPV 7.8 fL 7.4 - 10.4 05/06 /2015 [place] HEMATOLOGY WBC X 10x3 9.9 K/CMM 3.7 - 10.4 05/06 [place] HEMATOLOGY MCHC 32.5 g/dL 32.0 - 05/06 MH 36.0 [place] HEMATOLOGY MCH 23.0 pg 27.0 - 05/06 31.0 [place] HEMATOLOGY MCV 70.8 fL 80.0 - 05/06 94.0 [place] HEMATOLOGY PROTIME 13.4 s 12.0 - 05/06 14. [place] HEMATOLOGY INR 1.00 0.85 - 05/06 MH 1.17 [place] HEMATOLOGY aPTT 49.1 s 22.9 - 05/06 35.8 [place] URINE AND UA Bacteria None Seen None Seen 05/06 STOOL [place] (05/05/16 10:09 PM) URINE AND UA Blood Negative Negative 05/06 STOOL [place] (05/05/16 10:09 PM) URINE AND UA RBC 0-2 /HPF 0 - 2 05/06 [place] URINE AND UA WBC None Seen None Seen 05/06 STOOL [place] (05/05/16 10:09 PM) URINE AND UA Sq Epi None Seen Few 05/06 STOOL [place] (05/05/16 10:09 PM) URINE AND UA Leuk Est Negative Negative 05/06 STOOL [place] (05/05/16 10:09 PM) URINE AND UA 0.2 EU/dL 0.1 - 1.0 05/06 STOOL Urobilinogen [place] URINE AND UA Nitrite Negative Negative 05/06 STOOL [place] (05/05/16 10:09 PM) URINE AND UA Color Yellow Yellow 05/06 [place] *NA* (05/05/16 10:09 PM) URINE AND UA Glucose Negative Negative 05/06 STOOL [place] (05/05/16 10:09 PM) URINE AND UA Bili Negative Negative 05/06 [place] *NA* (05/05/16 10:09 PM) URINE AND UA Ketones Negative Negative 05/06 [place] *NA* (05/05/16 10:09 PM) URINE AND UA Protein Negative Negative 05/06 STOOL [place] (05/05/16 10:09 PM) URINE AND UA pH 6.0 5.0 - 8.0 05/06 [place] URINE AND UA Turbidity Clear Clear 05/06 [place] (05/05/16 10:09 PM) URINE AND UA Spec Grav >=1.030 <=1.030 05/06 [place] *ABN* (05/05/16 10:09 PM) BACTERIAL - MRSA by PCR Negative 05/06 SEROLOGY [place] (05/05/16 10:06 PM) HEMATOLOGY Basophils # 0.1 K/CMM 0.0 - 0.2 05/06 [place] HEMATOLOGY Microcyte 2+ None Seen 05/06 [place] *ABN* (05/05/16 9:38 PM) HEMATOLOGY Eosinophils 1.4 % 0.0 - 4.0 05/06 [place] HEMATOLOGY Basophils 0.7 % 0.0 - 1.0 05/06 [place] HEMATOLOGY Segs-Bands # 7.1 K/CMM 1.5 - 8.1 05/06 /2015 [place] HEMATOLOGY Lymphocytes 24.8 % 20.0 - 05/06 MH 40.0 /2015 [place] HEMATOLOGY Monocytes 7.9 % 2.0 - 12.0 05/06 /2015 [place] HEMATOLOGY Monocytes # 0.9 K/CMM 0.0 - 0.8 05/06 /2015 [place] HEMATOLOGY Eosinophils 0.2 K/CMM 0.0 - 0.5 05/06 MH # /2015 [place] HEMATOLOGY Lymphocytes 2.7 K/CMM 1.0 - 5.5 05/06 MH # /2015 [place] HEMATOLOGY Segs 65.2 % 45.0 - 05/06 MH 75.0 /2015 [place] HEMATOLOGY MCV 69.7 fL 80.0 - 05/06 MH 94.0 [place] HEMATOLOGY MCH 23.3 pg 27.0 - 05/06 MH 31.0 [place] HEMATOLOGY Hgb 12.2 g/dL 14.0 - 05/06 MH 18.0 [place] HEMATOLOGY Hct 36.5 % 42.0 - 05/06 MH 54.0 [place] HEMATOLOGY MCHC 33.4 g/dL 32.0 - 05/06 MH 36.0 [place] HEMATOLOGY Platelet 276 K/CMM 133 - 450 05/06 /2015 [place] HEMATOLOGY MPV 7.2 fL 7.4 - 10.4 05/06 /2015 [place] HEMATOLOGY RDW 17.5 % 11.5 - 05/06 MH 14. [place] HEMATOLOGY WBC X 10x3 11.0 K/CMM 3.7 - 10.4 05/06 [place] HEMATOLOGY RBC X 10x6 5.24 M/CMM 4.70 - 05/06 MH 6.10 [place] HEMATOLOGY INR 1.05 0.85 - 05/06 MH 1.17 [place] HEMATOLOGY PROTIME 13.9 s 12.0 - 05/06 14. [place] HEMATOLOGY aPTT 35.3 s 22.9 - 05/06 MH 35.8 [place] CARDIAC CK-MB INDEX 1.0 0.0 - 2.5 05/05 ENZYMES /2015 [place] CARDIAC CK MB 0.8 ng/mL 0.5 - 3.6 05/05 ENZYMES /2015 [place] CARDIAC Total CK 80 unit/L 12 - 191 05/05 ENZYMES [place] CARDIAC Troponin-I null 0.00 - 05/05 ENZYMES 0.40 [place] CHEM PANEL Alk Phos 133 unit/L 39 - 136 05/05 [place] CHEM PANEL Glucose Lvl 137 mg/dL 70 - 99 05/05 [place] CHEM PANEL BUN 17 mg/dL 7 - 22 05/05 [place] CHEM PANEL Creatinine 1.01 mg/dL 0.50 - 05/05 MH Lvl 1.40 [place] CHEM PANEL Sodium Lvl 139 meq/L 135 - 145 05/05 [place] CHEM PANEL ALANINE 34 unit/L 0 - 65 05/05 AMINOTRANSFE [place] RASE CHEM PANEL Albumin Lvl 3.3 g/dL 3.5 - 5.0 05/05 [place] CHEM PANEL Chloride Lvl 105 meq/L 95 - 109 05/05 [place] CHEM PANEL eGFR 88 05/05 Result Comment: [...] is not recommended in the following populations: [address] Individuals with unstable creatinine concentrations, including [...] Total 0.4 mg/dL 0.2 - 1.3 05/05 [place] CHEM PANEL Calcium Lvl 8.6 mg/dL 8.5 - 10.5 05/05 [place] CHEM PANEL Potassium 3.7 meq/L 3.5 - 5.1 05/05 Lvl [place] CHEM PANEL CO2 28 meq/L 24 - 32 05/05 [place] CHEM PANEL Total 7.8 g/dL 6.4 - 8.4 05/05 [place] CHEM PANEL ASPARTATE 16 unit/L 0 - 37 05/05 [place] CHEM PANEL AGAP 9.7 meq/L 10.0 - 05/05 MH 20.0 [place] CHEM PANEL B/C Ratio 17 6 - 25 05/05 [place] CHEM PANEL Globulin 4.5 g/dL 2.7 - 4.2 05/05 [place] CHEM PANEL A/G Ratio 0.7 0.7 - 1.6 05/05 [place] HEMATOLOGY Monocytes # 0.8 K/CMM 0.0 - 0.8 05/05 [place] HEMATOLOGY Eosinophils 0.1 K/CMM 0.0 - 0.5 05/05 # [place] HEMATOLOGY Basophils # 0.1 K/CMM 0.0 - 0.2 05/05 [place] HEMATOLOGY Microcyte 2+ None Seen 05/05 [place] *ABN* (05/05/16 5:11 PM) HEMATOLOGY Monocytes 7.5 % 2.0 - 12.0 05/05 [place] HEMATOLOGY Eosinophils 1.1 % 0.0 - 4.0 05/05 [place] HEMATOLOGY Basophils 0.7 % 0.0 - 1.0 05/05 [place] HEMATOLOGY Segs-Bands # 7.5 K/CMM 1.5 - 8.1 05/05 [place] HEMATOLOGY Lymphocytes 2.1 K/CMM 1.0 - 5.5 05/05 [place] HEMATOLOGY Lymphocytes 19.9 % 20.0 - 05/05 MH 40.0 [place] HEMATOLOGY Segs 70.8 % 45.0 - 05/05 MH 75.0 [place] HEMATOLOGY Platelet 306 K/CMM 133 - 450 05/05 [place] HEMATOLOGY MCHC 33.6 g/dL 32.0 - 05/05 MH 36.0 [place] HEMATOLOGY MPV 7.3 fL 7.4 - 10.4 05/05 [place] HEMATOLOGY RDW 16.9 % 11.5 - 05/05 MH 14. [place] HEMATOLOGY MCV 69.5 fL 80.0 - 05/05 MH 94.0 [place] HEMATOLOGY MCH 23.4 pg 27.0 - 05/05 MH 31.0 [place] HEMATOLOGY Hct 37.4 % 42.0 - 05/05 MH 54.0 [place] HEMATOLOGY Hgb 12.6 g/dL 14.0 - 05/05 MH 18.0 [place] HEMATOLOGY WBC X 10x3 10.6 K/CMM 3.7 - 10.4 05/05 [place] HEMATOLOGY RBC X 10x6 5.39 M/CMM 4.70 - 05/05 MH 6.10 [place] Chest 1view Chest 1view EXAM: Chest 1view DX 05/05 - [facility] DX DX /2015 - [place] DATE: 05/05/2016 4:55 PM [employer] INDICATION: Chest pain Read by: Tito Farnsworth MD Dictated Date/time: 05/05/16 17:34 COMPARISON: 03/05/2016. Electronically Signed by: Tito Farnsworth MD 05/05/16 17:34 FINAL REPORT IMPRESSION: Stable mildly enlarged cardiac silhouette. Atherosclerotic thoracic aorta. No focal consolidation, significant pleural effusion or pneumothorax. SL: [id number] CHEM PANEL Globulin 4.2 g/dL 2.7 - 4.2 04/25 [place] CHEM PANEL B/C Ratio 19 6 - 25 04/25 [place] CHEM PANEL AGAP 9.9 meq/L 10.0 - 04/25 20.0 [place] CHEM PANEL A/G Ratio 0.8 0.7 - 1.6 04/25 [place] CHEM PANEL eGFR 100 04/25 Result Comment: [...] is not recommended in the following populations: [address] Individuals with unstable creatinine concentrations, including [...] Phos 128 unit/L 39 - 136 04/25 [place] CHEM PANEL Albumin Lvl 3.4 g/dL 3.5 - 5.0 04/25 [place] CHEM PANEL ALANINE 30 unit/L 0 - 65 04/25 AMINOTRANSFE [place] RASE CHEM PANEL Total 7.6 g/dL 6.4 - 8.4 04/25 Protein [place] CHEM PANEL Bili Total 0.3 mg/dL 0.2 - 1.3 04/25 [place] CHEM PANEL ASPARTATE 14 unit/L 0 - 37 04/25 TRANSAMINASE [place] CHEM PANEL CO2 26 meq/L 24 - 32 04/25 [place] CHEM PANEL Calcium Lvl 8.7 mg/dL 8.5 - 10.5 04/25 [place] CHEM PANEL Chloride Lvl 104 meq/L 95 - 109 04/25 [place] CHEM PANEL Potassium 3.9 meq/L 3.5 - 5.1 04/25 MH Lvl /2015 [place] CHEM PANEL Glucose Lvl 221 mg/dL 70 - 99 04/25 [place] CHEM PANEL Sodium Lvl 136 meq/L 135 - 145 04/25 [place] CHEM PANEL Creatinine 0.91 mg/dL 0.50 - 04/25 MH Lvl 1.40 [place] CHEM PANEL BUN 17 mg/dL 7 - 22 04/25 [place] HEMATOLOGY RBC X 10x6 5.40 M/CMM 4.70 - 04/25 MH 6.10 [place] HEMATOLOGY WBC X 10x3 10.3 K/CMM 3.7 - 10.4 04/25 [place] HEMATOLOGY Hgb 12.9 g/dL 14.0 - 04/25 MH 18.0 [place] HEMATOLOGY MPV 7.2 fL 7.4 - 10.4 04/25 [place] HEMATOLOGY RDW 16.8 % 11.5 - 04/25 MH 14. [place] HEMATOLOGY Platelet 313 K/CMM 133 - 450 04/25 [place] HEMATOLOGY MCH 23.8 pg 27.0 - 04/25 MH 31.0 [place] HEMATOLOGY MCHC 34.0 g/dL 32.0 - 04/25 36.0 /2015 [place] HEMATOLOGY Hct 37.9 % 42.0 - 04/25 MH 54.0 /2015 [place] HEMATOLOGY MCV 70.1 fL 80.0 - 04/25 94.0 /2015 [place] HEMATOLOGY Lymphocytes 2.3 K/CMM 1.0 - 5.5 04/25 MH # /2016 [place] HEMATOLOGY Eosinophils 0.1 K/CMM 0.0 - 0.5 04/25 # /2015 [place] HEMATOLOGY Monocytes # 0.6 K/CMM 0.0 - 0.8 04/25 [place] HEMATOLOGY Basophils # 0.1 K/CMM 0.0 - 0.2 04/25 [place] HEMATOLOGY Microcyte 2+ None Seen 04/25 [place] *ABN* (04/25/16 6:17 PM) HEMATOLOGY Segs 69.2 % 45.0 - 04/25 MH 75.0 /2015 [place] HEMATOLOGY Segs-Bands # 7.1 K/CMM 1.5 - 8.1 04/25 [place] HEMATOLOGY Monocytes 6.1 % 2.0 - 12.0 04/25 [place] HEMATOLOGY Basophils 1.1 % 0.0 - 1.0 04/25 [place] HEMATOLOGY Eosinophils 1.1 % 0.0 - 4.0 04/25 [place] HEMATOLOGY Lymphocytes 22.5 % 20.0 - 04/25 40.0 /2016 [place] URINE AND UA WBC 0-2 /HPF None Seen 04/25 STOOL /HPF [place] URINE AND UA RBC 0-2 /HPF 0 - 2 04/25 STOOL [place] URINE AND UA Bacteria Occasional None Seen 04/25 STOOL /HPF /HPF [place] URINE AND UA Leuk Est Negative Negative 04/25 STOOL [place] (04/25/16 6:17 PM) URINE AND UA Sq Epi Occasional Few /LPF 04/25 STOOL /LPF /2015 [place] URINE AND UA pH 6.0 5.0 - 8.0 04/25 [place] URINE AND UA Protein Negative Negative 04/25 STOOL [place] (04/25/16 6:17 PM) URINE AND UA Glucose 250 mg/dL Negative 04/25 STOOL mg/dL /2015 [place] URINE AND UA Ketones Negative Negative 04/25 STOOL [place] *NA* (04/25/16 6:17 PM) URINE AND UA Bili Negative Negative 04/25 [place] *NA* (04/25/16 6:17 PM) URINE AND UA Blood Negative Negative 04/25 [place] (04/25/16 6:17 PM) URINE AND UA 0.2 EU/dL 0.1 - 1.0 04/25 [facility] Urobilinogen [place] URINE AND UA Nitrite Negative Negative 04/25 STOOL [place] (04/25/16 6:17 PM) URINE AND UA Color Yellow Yellow 04/25 [place] *NA* (04/25/16 6:17 PM) URINE AND UA Turbidity Clear Clear 04/25 [place] (04/25/16 6:17 PM) URINE AND UA Spec Grav 1.020 <=1.030 04/25 [facility] [place] Renal Stone Renal Stone EXAM: CT ABDOMEN AND PELVIS WITHOUT CONTRAST [facility] CT [facility] DATE: 04/25/2016 6:07 PM CDT Read [...] provided. IV contrast: None. CT Radiation Dose: NML=[id number] mGy-cm FINDINGS: Evaluation of the solid organs [...] infrarenal abdominal aorta without aneurysmal dilatation. SL: [id number] CARDIAC Troponin-I null 0.00 - 03/05 MH ENZYMES 0.40 /2015 [place] CARDIAC CK MB 0.8 ng/mL 0.5 - 3.6 03/05 MH ENZYMES /2016 [place] CARDIAC Total CK 60 unit/L - 191 03/05 MH ENZYMES /2016 [place] CARDIAC CK-MB INDEX 1.3 0.0 - 2.5 03/05 MH ENZYMES /2016 [place] CARDIAC Troponin-I null 0.00 - 03/05 MH ENZYMES 0.40 2016 [place] CARDIAC Total CK 66 unit/L - 191 03/05 MH ENZYMES /2016 [place] CARDIAC CK MB 0.6 ng/mL 0.5 - 3.6 03/05 MH ENZYMES /2016 [place] CARDIAC CK-MB INDEX 0.9 0.0 - 2.5 03/05 MH ENZYMES /2016 [place] CHEM PANEL eGFR 103 03/05 Result Comment: [...] is not recommended in the following populations: [address] Individuals with unstable creatinine concentrations, including [...] 12.0 meq/L 10.0 - 09 MH 20.0 [place] CHEM PANEL Globulin 4.4 g/dL 2.7 - 4.2 03/05 [place] CHEM PANEL B/C Ratio 14 6 - 25 03/05 [place] CHEM PANEL A/G Ratio 0.8 0.7 - 1.6 03/05 [place] CHEM PANEL Calcium Lvl 8.8 mg/dL 8.5 - 10.5 03/05 [place] CHEM PANEL Bili Total 0.6 mg/dL 0.2 - 1.3 03/05 [place] CHEM PANEL Total 7.8 g/dL 6.4 - 8.4 03/05 Protein [place] CHEM PANEL ASPARTATE 16 unit/L 0 - 37 03/05 [place] CHEM PANEL Alk Phos 128 unit/L 39 - 136 03/05 [place] CHEM PANEL Glucose Lvl 97 mg/dL 70 - 99 03/05 [place] CHEM PANEL Creatinine 0.88 mg/dL 0.50 - 03/05 MH Lvl 1.40 [place] CHEM PANEL BUN 12 mg/dL 7 - 22 03/05 [place] CHEM PANEL Sodium Lvl 138 meq/L 135 - 145 03/05 [place] CHEM PANEL ALANINE 32 unit/L 0 - 65 03/05 AMINOTRANS [place] RASE CHEM PANEL Albumin Lvl 3.4 g/dL 3.5 - 5.0 03/05 [place] CHEM PANEL Potassium 4.0 meq/L 3.5 - 5.1 03/05 MH Lvl [place] CHEM PANEL Chloride Lvl 105 meq/L 95 - 109 03/05 [place] CHEM PANEL CO2 25 meq/L 24 - 32 03/05 [place] HEMATOLOGY Platelet 294 K/CMM 133 - 450 03/05 [place] HEMATOLOGY MPV 7.4 fL 7.4 - 10.4 03/05 [place] HEMATOLOGY WBC X 10x3 10.0 K/CMM 3.7 - 10.4 03/05 [place] HEMATOLOGY RDW 16.6 % 11.5 - 03/05 MH 14.5 [place] HEMATOLOGY MCH 24.1 pg 27.0 - 03/05 MH 31.0 [place] HEMATOLOGY MCHC 33.4 g/dL 32.0 - 03/05 MH 36.0 [place] HEMATOLOGY MCV 72.2 fL 80.0 - 03/05 MH 94.0 [place] HEMATOLOGY Hct 38.1 % 42.0 - 03/05 MH 54.0 [place] HEMATOLOGY RBC X 10x6 5.28 M/CMM 4.70 - 03/05 MH 6.10 [place] HEMATOLOGY Hgb 12.7 g/dL 14.0 - 03/05 MH 18.0 [place] HEMATOLOGY Microcyte 1+ None Seen 03/05 [place] *ABN* (03/05/16 7:30 AM) HEMATOLOGY Basophils # 0.1 K/CMM 0.0 - 0.2 03/05 [place] HEMATOLOGY Monocytes # 0.7 K/CMM 0.0 - 0.8 03/05 [place] HEMATOLOGY Eosinophils 0.1 K/CMM 0.0 - 0.5 03/05 MH # /2015 [place] HEMATOLOGY Segs-Bands # 7.5 K/CMM 1.5 - 8.1 03/05 [place] HEMATOLOGY Lymphocytes 1.6 K/CMM 1.0 - 5.5 03/05 # /2015 [place] HEMATOLOGY Eosinophils 1.2 % 0.0 - 4.0 03/05 [place] HEMATOLOGY Basophils 0.6 % 0.0 - 1.0 03/05 [place] HEMATOLOGY Segs 75.1 % 45.0 - 03/05 MH 75.0 [place] HEMATOLOGY Monocytes 7.4 % 2.0 - 12.0 03/05 [place] HEMATOLOGY Lymphocytes 15.7 % 20.0 - 03/05 40.0 [place] Chest 1view Chest 1view Patient Name: ANNABEL MCCONNELL 03/05 - [facility] /[facility] - [place] : 1970; Age: 45 years y/o Male MR: [id number] Read by: Jason Dozier MD Dictated Date/time: [...] unremarkable. IMPRESSION: 1. No active disease. SL: [id number] URINE AND UA RBC 0-2 /HPF 0 - 2 03/02 [place] URINE AND UA Sq Epi None Seen Few 03/02 [place] (03/02/16 8:22 AM) URINE AND UA WBC None Seen None Seen 03/02 [place] (03/02/16 8:22 AM) URINE AND UA pH 6.0 5.0 - 8.0 03/02 [place] URINE AND UA Protein Negative Negative 03/02 STOOL mg/dL mg/dL [place] URINE AND UA Glucose Negative Negative 03/02 STOOL mg/dL mg/dL [place] URINE AND UA Ketones Negative Negative 03/02 STOOL mg/dL mg/dL [place] URINE AND UA Bili Negative Negative 03/02 [place] *NA* (03/02/16 8:22 AM) URINE AND UA Color Yellow Yellow 03/02 [place] *NA* (03/02/16 8:22 AM) URINE AND UA Turbidity Clear Clear 03/02 [place] (03/02/16 8:22 AM) URINE AND UA Spec Grav 1.015 <=1.030 03/02 [place] URINE AND UA Blood Negative Negative 03/02 [place] (03/02/16 8:22 AM) URINE AND UA 0.2 EU/dL 0.1 - 1.0 03/02 STOOL Urobilinogen [place] URINE AND UA Nitrite Negative Negative 03/02 [place] (03/02/16 8:22 AM) URINE AND UA Leuk Est Negative Negative 03/02 STOOL [place] (03/02/16 8:22 AM) CHEM PANEL A/G Ratio 0.7 0.7 - 1.6 03/02 [place] CHEM PANEL Globulin 4.6 g/dL 2.7 - 4.2 03/02 [place] CHEM PANEL B/C Ratio 16 6 - 25 03/02 [place] CHEM PANEL AGAP 10.4 meq/L 10.0 - 03/02 MH 20.0 [place] CHEM PANEL Total 8.0 g/dL 6.4 - 8.4 03/02 Protein [place] CHEM PANEL Bili Total 0.3 mg/dL 0.2 - 1.3 03/02 [place] CHEM PANEL Calcium Lvl 8.7 mg/dL 8.5 - 10.5 03/02 [place] CHEM PANEL CO2 26 meq/L 24 - 32 03/02 [place] CHEM PANEL Chloride Lvl 106 meq/L 95 - 109 03/02 [place] CHEM PANEL Sodium Lvl 138 meq/L 135 - 145 03/02 [place] CHEM PANEL Potassium 4.4 meq/L 3.5 - 5.1 03/02 Lv [place] CHEM PANEL eGFR 83 03/02 Result Comment: [...] is not recommended in the following populations: [place] 3m2 Individuals with unstable creatinine concentrations, including [...] ASPARTATE 13 unit/L 0 - 37 03/02 [place] CHEM PANEL Creatinine 1.07 mg/dL 0.50 - 03/02 MH Lvl 1.40 /2015 [place] CHEM PANEL BUN 17 mg/dL 7 - 22 03/02 [place] CHEM PANEL Glucose Lvl 106 mg/dL 70 - 99 03/02 [place] CHEM PANEL Alk Phos 127 unit/L 39 - 136 03/02 [place] CHEM PANEL Albumin Lvl 3.4 g/dL 3.5 - 5.0 03/02 [place] CHEM PANEL ALANINE 33 unit/L 0 - 65 03/02 AMINOTRANSFE /2015 [place] RASE CHEM PANEL Lipase Lvl 164 unit/L 73 - 393 03/02 [place] HEMATOLOGY Basophils # 0.1 K/CMM 0.0 - 0.2 03/02 [place] HEMATOLOGY Microcyte 1+ None Seen 03/02 [place] *ABN* (03/02/16 5:41 AM) HEMATOLOGY Monocytes 6.7 % 2.0 - 12.0 03/02 [place] HEMATOLOGY Lymphocytes 21.9 % 20.0 - 03/02 MH 40.0 [place] HEMATOLOGY Eosinophils 1.5 % 0.0 - 4.0 03/02 [place] HEMATOLOGY Segs 69.1 % 45.0 - 03/02 75.0 [place] HEMATOLOGY Monocytes # 0.8 K/CMM 0.0 - 0.8 03/02 [place] HEMATOLOGY Lymphocytes 2.6 K/CMM 1.0 - 5.5 03/02 MH # [place] HEMATOLOGY Eosinophils 0.2 K/CMM 0.0 - 0.5 03/02 MH [place] HEMATOLOGY Segs-Bands # 8.1 K/CMM 1.5 - 8.1 03/02 [place] HEMATOLOGY Basophils 0.8 % 0.0 - 1.0 03/02 [place] HEMATOLOGY WBC X 10x3 11.8 K/CMM 3.7 - 10.4 03/02 [place] HEMATOLOGY Hct 37.4 % 42.0 - 03/02 MH 54.0 [place] HEMATOLOGY RBC X 10x6 5.18 M/CMM 4.70 - 03/02 MH 6.10 [place] HEMATOLOGY Hgb 12.5 g/dL 14.0 - 03/02 MH 18.0 /2015 [place] HEMATOLOGY MCH 24.1 pg 27.0 - 03/02 MH 31.0 /2015 [place] HEMATOLOGY RDW 16.7 % 11.5 - 03/02 MH 14.5 /2015 [place] HEMATOLOGY MCHC 33.4 g/dL 32.0 - 03/02 MH 36.0 /2015 [place] HEMATOLOGY MCV 72.1 fL 80.0 - 03/02 94.0 /2015 [place] HEMATOLOGY MPV 7.7 fL 7.4 - 10.4 03/02 [place] HEMATOLOGY Platelet 303 K/CMM 133 - 450 03/02 [place] Chest/Abdom Chest/Abdome CT THORAX/ABDOMEN/PELVIS WITH IV CONTRAST WITH SAGITTAL AND CORONAL REFORMATTED IMAGES 03/02 - [facility] en/Pelvis w n/Pelvis w - [place] IV contrast IV contrast CT CT HISTORY: [...] colonic diverticulosis, small abdominal aortic aneurysm. SL: [id number] Abdomen RUQ Abdomen RUQ ULTRASOUND ABDOMEN RIGHT UPPER QUADRANT 03/02 - [facility] US US /2015 - [place] HISTORY: Abdominal pain, acute; right flank pain [...] steatosis. 2. Otherwise normal abdominal ultrasound. SL: [id number] Renal Stone Renal Stone Patient Name: ANNABEL MCCONNELL 03/02 [facility] [address] CT /2015 [facility] : 1970; Age: 45 years y/o Male MR: [id number] Read by: John Paul Carrero MD Dictated Date/time: 03/02/16 05:55 Electronically Signed by: John Paul Carrero MD 03/02/16 05:59 FINAL REPORT Study: Renal Stone CT 03/02/2016 5:25 AM CDT Ordering Physician: Clinical Indication: Abdominal pain, acute; Comparison: None TECHNIQUE: Noncontrasted helical imaging was performed from the kidneys through the symphysis as a renal stone protocol. Multiplanar reformations are available. CT Radiation Dose: AQM=[id number] mGy-cm FINDINGS: This examination is limited for [...] - 5.1 02/18 MH S Lvl /2015 [place] ELECTROLYTE Chloride Lvl 104 meq/L 95 - 109 02/18 S [place] ELECTROLYTE Sodium Lvl 136 meq/L 135 - 145 02/18 MH S /2015 [place] ELECTROLYTE Glucose Lvl 147 mg/dL 70 - 99 02/18 MH S [place] ELECTROLYTE Creatinine 0.88 mg/dL 0.50 - 02/18 MH S Lvl 1.40 [place] ELECTROLYTE BUN 10 mg/dL 7 - 22 02/18 MH S /2015 [place] ELECTROLYTE eGFR 103 02/18 Result Comment: The [...] is not recommended in the following populations: [place] 3m2 Individuals with unstable creatinine concentrations, including [...] 8.5 - 10.5 02/18 MH S /2015 [place] ELECTROLYTE CO2 24 meq/L 24 - 32 02/18 MH S /2015 [place] ELECTROLYTE AGAP 12.4 meq/L 10.0 - 02/18 MH S 20.0 [place] HEMATOLOGY RDW 16.3 % 11.5 - 02/18 MH 14. [place] HEMATOLOGY Platelet 273 K/CMM 133 - 450 02/18 [place] HEMATOLOGY MPV 7.5 fL 7.4 - 10.4 02/18 [place] HEMATOLOGY Hgb 12.8 g/dL 14.0 - 02/18 MH 18.0 [place] HEMATOLOGY RBC X 10x6 5.31 M/CMM 4.70 - 02/18 MH 6.10 [place] HEMATOLOGY WBC X 10x3 11.1 K/CMM 3.7 - 10.4 02/18 [place] HEMATOLOGY MCV 72.6 fL 80.0 - 02/18 MH 94.0 [place] HEMATOLOGY Hct 38.6 % 42.0 - 02/18 MH 54.0 [place] HEMATOLOGY MCH 24.1 pg 27.0 - 02/18 MH 31.0 [place] HEMATOLOGY MCHC 33.1 g/dL 32.0 - 02/18 MH 36.0 [place] CARDIAC Troponin-I null 0.00 - 02/17 MH ENZYMES 0.40 [place] HEMATOLOGY Monocytes 7.9 % 2.0 - 12.0 02/17 [place] HEMATOLOGY Lymphocytes 20.8 % 20.0 - 02/17 MH 40.0 [place] HEMATOLOGY Segs 69.1 % 45.0 - 02/17 MH 75.0 [place] HEMATOLOGY Lymphocytes 2.2 K/CMM 1.0 - 5.5 02/17 MH /2015 [place] HEMATOLOGY Monocytes # 0.8 K/CMM 0.0 - 0.8 02/17 [place] HEMATOLOGY Eosinophils 1.6 % 0.0 - 4.0 02/17 [place] HEMATOLOGY Segs-Bands # 7.5 K/CMM 1.5 - 8.1 02/17 [place] HEMATOLOGY Basophils 0.6 % 0.0 - 1.0 02/17 [place] HEMATOLOGY Microcyte 1+ None Seen 02/17 [place] *ABN* (02/18/16 5:20 AM) HEMATOLOGY Basophils # 0.1 K/CMM 0.0 - 0.2 02/17 [place] HEMATOLOGY Eosinophils 0.2 K/CMM 0.0 - 0.5 02/17 MH # /2015 [place] HEMATOLOGY RBC X 10x6 4.91 M/CMM 4.70 - 02/17 MH 6.10 [place] HEMATOLOGY WBC X 10x3 10.8 K/CMM 3.7 - 10.4 02/17 [place] HEMATOLOGY MCH 24.1 pg 27.0 - 02/17 MH 31.0 [place] HEMATOLOGY MCV 73.1 fL 80.0 - 02/17 MH 94.0 [place] HEMATOLOGY Hct 35.9 % 42.0 - 02/17 MH 54.0 [place] HEMATOLOGY Hgb 11.8 g/dL 14.0 - 02/17 MH 18.0 [place] HEMATOLOGY MPV 7.4 fL 7.4 - 10.4 02/17 [place] HEMATOLOGY RDW 16.3 % 11.5 - 02/17 14.5 [place] HEMATOLOGY MCHC 33.0 g/dL 32.0 - 02/17 MH 36.0 [place] HEMATOLOGY Platelet 270 K/CMM 133 - 450 02/17 [place] CARDIAC Troponin-I null 0.00 - 02/16 ENZYMES 0. [place] CHEM PANEL Procalcitoni null 0.00 - 02/16 n Lvl 0.10 [place] CARDIAC Troponin-I null 0.00 - 02/16 ENZYMES 0.40 [place] URINE AND UA Bacteria None Seen None Seen 02/16 STOOL /2015 [place] (02/17/16 6:27 AM) URINE AND UA RBC None Seen 0 - 2 02/16 STOOL /2015 [place] (02/17/16 6:27 AM) URINE AND UA Mucus Few /LPF None Seen 02/16 STOOL /LPF /2015 [place] URINE AND UA Sq Epi Rare /LPF Few /LPF 02/16 STOOL [place] URINE AND UA WBC 0-2 /HPF None Seen 02/16 STOOL /HPF /2015 [place] URINE AND UA Leuk Est Negative Negative 02/16 STOOL /2015 [place] (02/17/16 6:27 AM) URINE AND UA 0.2 EU/dL 0.1 - 1.0 02/16 STOOL Urobilinogen [place] URINE AND UA Nitrite Negative Negative 02/16 STOOL [place] (02/17/16 6:27 AM) URINE AND UA Spec Grav 1.025 <=1.030 02/16 STOOL [place] URINE AND UA Turbidity Clear Clear 02/16 STOOL [place] (02/17/16 6:27 AM) URINE AND UA Color Yellow Yellow 02/16 STOOL [place] *NA* (02/17/16 6:27 AM) URINE AND UA Bili Negative Negative 02/16 STOOL [place] *NA* (02/17/16 6:27 AM) URINE AND UA Blood Negative Negative 02/16 STOOL [place] (02/17/16 6:27 AM) URINE AND UA Ketones Negative Negative 02/16 STOOL mg/dL mg/dL [place] URINE AND UA Glucose Negative Negative 02/16 STOOL mg/dL mg/dL [place] URINE AND UA pH 6.0 5.0 - 8.0 02/16 STOOL [place] URINE AND UA Protein Negative Negative 02/16 STOOL mg/dL mg/dL [place] CARDIAC CK-MB INDEX 1.6 0.0 - 2.5 02/16 ENZYMES [place] CARDIAC CK MB 0.9 ng/mL 0.5 - 3.6 02/16 ENZYMES [place] CARDIAC Total CK 58 unit/L 12 - 191 02/16 ENZYMES [place] CHEM PANEL eGFR 93 02/16 Result Comment: [...] is not recommended in the following populations: [place] 3m2 Individuals with unstable creatinine concentrations, including [...] 33 unit/L 0 - 65 02/16 AMINOTRANS [place] RASE CHEM PANEL CO2 23 meq/L 24 - 32 02/16 [place] CHEM PANEL Calcium Lvl 8.8 mg/dL 8.5 - 10.5 02/16 [place] CHEM PANEL Potassium 4.0 meq/L 3.5 - 5.1 02/16 MH Lvl [place] CHEM PANEL Chloride Lvl 105 meq/L 95 - 109 02/16 [place] CHEM PANEL Creatinine 0.97 mg/dL 0.50 - 02/16 MH Lvl 1.40 [place] CHEM PANEL Glucose Lvl 103 mg/dL 70 - 99 02/16 [place] CHEM PANEL BUN 11 mg/dL 7 - 22 02/16 [place] CHEM PANEL Albumin Lvl 3.4 g/dL 3.5 - 5.0 02/16 [place] CHEM PANEL Alk Phos 128 unit/L 39 - 136 02/16 [place] CHEM PANEL Bili Total 0.5 mg/dL 0.2 - 1.3 02/16 [place] CHEM PANEL Sodium Lvl 139 meq/L 135 - 145 02/16 [place] CHEM PANEL AGAP 15.0 meq/L 10.0 - 02/16 MH 20.0 [place] CHEM PANEL B/C Ratio 11 6 - 25 02/16 [place] CHEM PANEL Total 8.0 g/dL 6.4 - 8.4 02/16 [place] CHEM PANEL ASPARTATE 16 unit/L 0 - 37 02/16 [place] CHEM PANEL Globulin 4.6 g/dL 2.7 - 4.2 02/16 [place] CHEM PANEL A/G Ratio 0.7 0.7 - 1.6 02/16 [place] HEMATOLOGY Microcyte 1+ None Seen 02/16 [place] *ABN* (02/17/16 5:50 AM) HEMATOLOGY Basophils # 0.1 K/CMM 0.0 - 0.2 02/16 [place] HEMATOLOGY Basophils 0.5 % 0.0 - 1.0 02/16 [place] HEMATOLOGY Lymphocytes 2.4 K/CMM 1.0 - 5.5 02/16 MH # /2015 [place] HEMATOLOGY Monocytes # 0.8 K/CMM 0.0 - 0.8 02/16 [place] HEMATOLOGY Eosinophils 0.1 K/CMM 0.0 - 0.5 02/16 MH # /2015 [place] HEMATOLOGY Segs-Bands # 8.7 K/CMM 1.5 - 8.1 02/16 [place] HEMATOLOGY Eosinophils 1.2 % 0.0 - 4.0 02/16 [place] HEMATOLOGY Segs 72.1 % 45.0 - 02/16 MH 75.0 [place] HEMATOLOGY Lymphocytes 19.8 % 20.0 - 02/16 MH 40.0 [place] HEMATOLOGY Monocytes 6.4 % 2.0 - 12.0 02/16 [place] HEMATOLOGY Platelet 327 K/CMM 133 - 450 02/16 [place] HEMATOLOGY MCH 24.1 pg 27.0 - 02/16 31.0 [place] HEMATOLOGY MCHC 33.3 g/dL 32.0 - 02/16 36.0 [place] HEMATOLOGY MPV 7.6 fL 7.4 - 10.4 02/16 [place] HEMATOLOGY RDW 16.3 % 11.5 - 02/16 14.5 [place] HEMATOLOGY Hgb 13.1 g/dL 14.0 - 02/16 18.0 [place] HEMATOLOGY Hct 39.5 % 42.0 - 02/16 54.0 [place] HEMATOLOGY WBC X 10x3 12.0 K/CMM 3.7 - 10.4 02/16 [place] HEMATOLOGY RBC X 10x6 5.45 M/CMM 4.70 - 02/16 [facility] 6.10 [place] HEMATOLOGY MCV 72.6 fL 80.0 - 02/16 94.0 [place] Renal Stone Renal Stone Patient Name: ANNABEL MCCONNELL 02/16 - [facility] [place] : 1970; Age: 45 years Male MR: [id number] Read by: Sundar Jeffrey MD Dictated Date/time: 02/17/16 05:53 Electronically Signed by: Sundar Jeffrey MD 02/17/16 06:01 FINAL REPORT Study: Renal Stone CT 02/17/2016 5:26 AM CDT Clinical Indication: Flank Pain. UT. STATED RT. FLANK PAIN AND UPPER CHEST [...] small left renal cyst. 7. Cardiomegaly. SL: [id number] Chest 1view Chest 1view Patient Name: ANNABEL MCCONNELL 02/16 [facility] DX DX [place] : 1970; Age: 45 years y/o Male MR: [id number] Read by: Jaun Guillermo MD Dictated Date/time: [...] Date Comments Source Respitory Rate 18 05/17/2016 [facility] Temperature Oral (F) 98.1 F 05/17/2016 [facility] Heart Rate 72 05/17/2016 [facility] Systolic (mm Hg) 116 05/17/2016 [facility] Diastolic (mm Hg) 76 05/17/2016 [facility] Weight 128.636 05/17/2016 [facility] Temperature Oral (F) 97.6 F 05/17/2016 [facility] Respitory Rate 16 05/17/2016 [facility] Heart Rate 79 05/17/2016 [facility] Systolic (mm Hg) 100 05/17/2016 [facility] Diastolic (mm Hg) 69 05/17/2016 [facility] Respitory Rate 16 05/06/2016 [facility] Systolic (mm Hg) 134 05/06/2016 [facility] Diastolic (mm Hg) 84 05/06/2016 [facility] Heart Rate 61 05/06/2016 [facility] Temperature Oral (F) 97.9 F 05/06/2016 [facility] Respitory Rate 14 05/06/2016 [facility] Temperature Oral (F) 97.4 F 05/06/2016 [facility] Systolic (mm Hg) 117 05/06/2016 [facility] Diastolic (mm Hg) 77 05/06/2016 [facility] Respitory Rate 18 05/06/2016 [facility] Heart Rate 56 05/06/2016 [facility] Systolic (mm Hg) 120 05/06/2016 [facility] Diastolic (mm Hg) 77 05/06/2016 [facility] Heart Rate 62 05/06/2016 [facility] Temperature Oral (F) 97.9 F 05/06/2016 [facility] Weight 131.7 05/06/2016 [facility] BMI Calculated 41.66 05/06/2016 [facility] Height 177.8 cm 05/06/2016 [facility] Weight 127.273 05/05/2016 [facility] Systolic (mm Hg) 118 04/26/2016 [facility] Diastolic (mm Hg) 64 04/26/2016 [facility] Respitory Rate 18 04/26/2016 [facility] Heart Rate 78 04/26/2016 [facility] Temperature Oral (F) 97.4 F 04/26/2016 [facility] Weight 128.182 04/25/2016 [facility] BMI Calculated 40.55 04/25/2016 [facility] Height 177.8 cm 04/25/2016 [facility] Respitory Rate 18 04/25/2016 [facility] Temperature Oral (F) 97.2 F 04/25/2016 [facility] Heart Rate 80 04/25/2016 [facility] Systolic (mm Hg) 137 04/25/2016 [facility] Diastolic (mm Hg) 85 04/25/2016 [facility] Temperature Oral (F) 98.7 F 03/05/2016 [facility] Respitory Rate 16 03/05/2016 [facility] Systolic (mm Hg) 127 03/05/2016 [facility] Diastolic (mm Hg) 68 03/05/2016 [facility] Respitory Rate 16 03/05/2016 [facility] Systolic (mm Hg) 124 03/05/2016 [facility] Diastolic (mm Hg) 76 03/05/2016 [facility] Systolic (mm Hg) 127 03/05/2016 [facility] Diastolic (mm Hg) 77 03/05/2016 [facility] Height 177.8 cm 03/05/2016 [facility] BMI Calculated 40.83 03/05/2016 [facility] Weight 129.091 03/05/2016 [facility] Heart Rate 62 03/05/2016 [facility] Temperature Oral (F) 98.9 F 03/05/2016 [facility] Respitory Rate 18 03/05/2016 [facility] Temperature Oral (F) 98.2 F 03/02/2016 [facility] Heart Rate 58 03/02/2016 [facility] Respitory Rate 16 03/02/2016 [facility] Systolic (mm Hg) 120 03/02/2016 [facility] Diastolic (mm Hg) 66 03/02/2016 [facility] Heart Rate 50 03/02/2016 [facility] Weight 128.636 03/02/2016 [facility] Temperature Oral (F) 98.0 F 03/02/2016 [facility] Respitory Rate 18 03/02/2016 [facility] Systolic (mm Hg) 149 03/02/2016 [facility] Diastolic (mm Hg) 87 03/02/2016 [facility] Heart Rate 69 03/02/2016 [facility] Systolic (mm Hg) 107 02/20/2016 [facility] Diastolic (mm Hg) 66 02/20/2016 [facility] Temperature Oral (F) 98.0 F 02/20/2016 [facility] Respitory Rate 17 02/20/2016 [facility] Heart Rate 81 02/20/2016 [facility] Heart Rate 73 02/19/2016 [facility] Respitory Rate 17 02/19/2016 [facility] Temperature Oral (F) 97.8 F 02/19/2016 [facility] Systolic (mm Hg) 96 02/19/2016 [facility] Diastolic (mm Hg) 63 02/19/2016 [facility] Systolic (mm Hg) 128 02/19/2016 [facility] Diastolic (mm Hg) 84 02/19/2016 [facility] Heart Rate 82 02/19/2016 [facility] Temperature Oral (F) 97.9 F 02/19/2016 [facility] Respitory Rate 17 02/19/2016 [facility] Height 177.8 cm 02/17/2016 [facility] BMI Calculated 40.98 02/17/2016 [facility] Weight 129.545 02/17/2016 [facility] Weight 129.545 02/17/2016 [facility] BMI Calculated 40.98 02/17/2016 [facility] Height 177.8 cm 02/17/2016 [facility] Encounters Location Location Encounter Encounter Reason Attending ADM DC Status Source Details Type Number For Provider Date Date Visit [facility] [id number] Osmar 02/16 02/19 [facility] Roberts /2015 [facility] [id number] Fei 03/02 03/02 Fred[facility] Partida /2015 [facility] [id number] Rachel Platt 03/05 03/05 [facility] /2015 [facility] [id number] Agustin 04/25 04/26 Freddy Lopez /2015 [facility] [id number] Geronimo 05/05 05/07 Freddy Dupont /2015 [facility] [id number] Karey 05/17 05/18 Freddy Zuleta /2015 [facility] Procedures Procedure Code Date Perfomer Comments Source Catheterization of [id number] [facility] right heart Lithotripsy [id number] [facility] Placement of stent in [id number] R RCA 100% [facility] cardiac blockage conduit<sup>1</sup>
--- NOTE | 2018-10-18 07:38 | RAD REPORT ---
EXAM DESCRIPTION: CT - Head C Spine Cap W Con - 10/18/2018 7:26 am CLINICAL HISTORY: Trauma, head and neck injury. Chest, abdomen and pelvis pain. PAIN COMPARISON: No comparisonsHead C Spine Cap Wo Con dated 01/11/2018 TECHNIQUE: CT head without contrast. CT cervical spine without contrast with coronal and sagittal reformatted images. CT chest, abdomen and pelvis with IV contrast (approximately 100 mL nonionic IV contrast) with salazar l and sagittal reformatted images of the spine. All CT scans are performed using dose optimization technique as appropriate and may include automated exposure control or mA/KV adjustment according to patient size. FINDINGS: CT HEAD WITHOUT CONTRAST: No intracranial hemorrhage, hydrocephalus or extra-axial fluid collection. No areas of brain edema o r midline shift. The paranasal sinuses and mastoids are clear. The calvarium is intact. CT CERVICAL SPINE WITHOUT CONTRAST: No fracture or subluxation. Mild lower cervical degenerative changes. The prevertebral soft tissues a re normal in thickness. CT CHEST, ABDOMEN, PELVIS WITH CONTRAST: The lungs are clear.No pneumothorax or pericardial/pleural fluid. No evidence of intra-abdominal visceral injury, free fluid or free air. 16 mm cyst anterior left kidn ey. No concerning pelvic findings. No fractures. IMPRESSION: Negative for acute traumatic findings.
--- OUTSIDE RECORDS SUMMARY | 2018-10-18 07:40 | XMS REPORT ---
:1970 Author Organization [facility] Address [address] [place] [address] Care Team Providers Name Role Phone Unavailable [...] reported result: 1.05 Edited by: INFCE on 07/06/18:934217 1510: SILICA CLOTTING previously reported as: 1.05 ARTERIAL THROMBOPHILIA [id number] 12:28:00 Test Item Value Reference Range Comments PROTHROMBIN 3 NO MUTATION () PROTHROMBIN (FACTOR II) 83918A>A UNTRANSLATED (test DETECTED MUTATION INTERPRETATION:This code=XW1COCS) individual is negative (normal) for the X42933Jaqhqzhpt in the Prothrombin/Factor II gene. Increased riskof thrombophilia can be caused by a variety of genetic andnon-genetic factors not screened for this assay. Laboratory testing supervised and results monitored byTarah Segura, Ph.D., [facility], [facility], [facility]. MUTATION ANALYSIS:The J05990M mutation [MO310899.1:g.67395K>A (c.*97G>A)] inthe Prothrombin/Factor II gene is the second most commoninherited risk factor for thrombosis occuring inapproximately 2% of Caucasians. Presence of the mutation isassociated with an elevation of prothrombin levels to about30% above normal in heterozygotes and 70% above normal inhomozygotes. The M40287S mutation is detected bypolymerase chain reaction (PCR) and flourescent probehybridization to the targeted region, followed by meltingcurve analysis with a real time PCR system. Although rare,false positive or false negative results may occur. Allresults should be interpreted in the context of clinicalfindings, relevant history, and other laboratory data. This test was developed and its analytical performancecharacteristics have been determined by [facility]. It has not beencleared or approved by the FDA. This assay has beenvalidated pursuant to the CLIA regulations and is used forclinical purposes. Health care providers, please contact your local [email or web address] genetic counselor or call [phone]) for assistance with interpretation of theseresults. Performed by: [facility]/[place] [address] ACTIVATED PROT C 3.09 RATIO 2.31-5.00 Ratios [...] supervised and results monitored byBjorn Cardoza, Ph.D., [facility], [facility]. MUTATION ANALYSIS:The Factor v Leiden (R560Q) mutation [NM 484229.2: c.1601G>A(p.R534Q)] in the Factor V gene is [...] its analytical performancecharacteristics have been determined by [facility]. It has not beencleared or approved by the FDA. This assay has beenvalidated pursuant to the CLIA regulations and is used forclinical purposes. Health care providers, please contact your local [email or web address] genetic counselor or call [phone]) for assistance with interpretation of theseresults. Performed by: [facility] [address] PROTEIN S FREE (test 56 % 68-126 [...] yet been included into the APS criteria. AASX-4-UYWHO I IGM 0.8 SMU 0.0-20.0 (test code=GPIIGM) TPWO-5-FPCTU I IGG 0.0 SGU 0.0-20.0 (test code=GPIIGG) NBPY-7-MBTIV I IGA 0.5 AHMET 0.0-20.0 The Antiphospholipid [...] SENSITIVITY CRP 2.347 mg/dl 0.000-0.747 (test code=CRPHS) [id number] 12:28:00 Test Item Value Reference Range Comments FIBRINOGEN (test code=FIB) 640 MG/DL 160-450 Excess administration of anticoagulants and/or FibrinDegradation Products may affect Fibrinogen value. FACTOR [id number] 12:28:00 Test Item Value Reference Range Comments [...] Antithrombin levels are not clinicallysignificant. PROTEIN C [id number] 12:28:00 Test Item Value Reference Range Comments [...] increased levels of Protein C. PROTEIN C [id number] 12:28:00 Test Item Value Reference Range Comments PROTEIN C ANTIGENIC (test 71 % 70-140 Decreased levels of Protein C code=PROTCAG) Antigen may be found incongenital deficiency, treatment with oral anticoagulants,liver disease, D.I.C. and post surgery. Performed by: [facility] [address] PROTEIN S [id number] 12:28:00 Test Item Value Reference Range Comments PROTEIN S TOTAL (test 68 % 70-140 Performed by: [facility] code=PROTSTOT) [facility] [place] [address] PROTEIN S FUNC (test 70 % 74-148 Protein S deficiency may be acquired code=PROTSFN) due to recentthrombosis, oral anticoagulant therapy, , oralcontraceptives or hormone replacement therapy, liverdysfunction, recent surgery, DIC, and vitamin K deficiency.Hereditary deficiency of Protein S show decreased levels butare rare. Elevated Protein S levels are not clinicallysignificant. Only decreased levels are associated with anincreased thrombotic risk. MTHF REDUCTASE (PCR) [id number] 12:28:00 Test Item Value Reference Range Comments MTHF REDUCTASE (PCR) 677 (test code=MTHFR TEST NOT PERFORMED 677) LUPUS ANTICOAGULANT [id number] 11:48:00 Test Item Value Reference Range Comments [...] reported result: 1.05 Edited by: SMITA on 07/06/18:559531 1510: SILICA CLOTTING previously reported as: 1.05 ARTERIAL THROMBOPHILIA [id number] 11:48:00 Test Item Value Reference Range Comments PROTHROMBIN 3 NO MUTATION () PROTHROMBIN (FACTOR II) 40087W>A UNTRANSLATED (test DETECTED MUTATION INTERPRETATION:This code=YT7DCNA) individual is negative (normal) for the J21856Ncfoxvkua in the Prothrombin/Factor II gene. Increased riskof thrombophilia can be caused by a variety of genetic andnon-genetic factors not screened for this assay. Laboratory testing supervised and results monitored byTarah Segura, Ph.D., [facility], [facility], [facility]. MUTATION ANALYSIS:The P54447L mutation [UH415652.1:g.29703I>A (c.*97G>A)] inthe Prothrombin/Factor II gene is the second most commoninherited risk factor for thrombosis occuring inapproximately 2% of Caucasians. Presence of the mutation isassociated with an elevation of prothrombin levels to about30% above normal in heterozygotes and 70% above normal inhomozygotes. The A26438I mutation is detected bypolymerase chain reaction (PCR) and flourescent probehybridization to the targeted region, followed by meltingcurve analysis with a real time PCR system. Although rare,false positive or false negative results may occur. Allresults should be interpreted in the context of clinicalfindings, relevant history, and other laboratory data. This test was developed and its analytical performancecharacteristics have been determined by [facility]. It has not beencleared or approved by the FDA. This assay has beenvalidated pursuant to the CLIA regulations and is used forclinical purposes. Health care providers, please contact your local [facility] genetic counselor or call [phone]) for assistance with interpretation of theseresults. Performed by: [facility] [address] ACTIVATED PROT C 3.09 RATIO 2.31-5.00 Ratios [...] supervised and results monitored byBjorn Cardoza, Ph.D., [facility], [facility]. MUTATION ANALYSIS:The Factor v Leiden (R560Q) mutation [NM 413830.2: c.1601G>A(p.R534Q)] in the Factor V gene is [...] its analytical performancecharacteristics have been determined by [facility]. It has not beencleared or approved by the FDA. This assay has beenvalidated pursuant to the CLIA regulations and is used forclinical purposes. Health care providers, please contact your local [facility]' genetic counselor or call [phone]) for assistance with interpretation of theseresults. Performed by: [facility]/[place] [address] PROTEIN S FREE (test 56 % 68-126 [...] yet been included into the APS criteria. DKBS-0-IGBNG I IGM 0.8 SMU 0.0-20.0 (test code=GPIIGM) GEYY-0-DJBWO I IGG 0.0 SGU 0.0-20.0 (test code=GPIIGG) QXDC-6-PJLHA I IGA 0.5 AHMET 0.0-20.0 The Antiphospholipid [...] SENSITIVITY CRP 2.347 mg/dl 0.000-0.747 (test code=CRPHS) [id number] 11:48:00 Test Item Value Reference Range Comments FIBRINOGEN (test code=FIB) 640 MG/DL 160-450 Excess administration of anticoagulants and/or FibrinDegradation Products may affect Fibrinogen value. FACTOR [id number] 11:48:00 Test Item Value Reference Range Comments [...] Antithrombin levels are not clinicallysignificant. PROTEIN C [id number] 11:48:00 Test Item Value Reference Range Comments [...] increased levels of Protein C. PROTEIN C [id number] 11:48:00 Test Item Value Reference Range Comments PROTEIN C ANTIGENIC (test 71 % 70-140 Decreased levels of Protein C code=PROTCAG) Antigen may be found incongenital deficiency, treatment with oral anticoagulants,liver disease, D.I.C. and post surgery. Performed by: [facility]/[place] [address] PROTEIN S [id number] 11:48:00 Test Item Value Reference Range Comments PROTEIN S TOTAL (test 68 % 70-140 Performed by: [facility] code=PROTSTOT) Diagnostics/[place] [address] PROTEIN S FUNC (test 70 % 74-148 Protein S deficiency may be acquired code=PROTSFN) due to recentthrombosis, oral anticoagulant therapy, , oralcontraceptives or hormone replacement therapy, liverdysfunction, recent surgery, DIC, and vitamin K deficiency.Hereditary deficiency of Protein S show decreased levels butare rare. Elevated Protein S levels are not clinicallysignificant. Only decreased levels are associated with anincreased thrombotic risk. MTHF REDUCTASE (PCR) [id number] 11:48:00 Test Item Value Reference Range Comments MTHF REDUCTASE (PCR) 677 (test code=MTHFR 677) LUPUS ANTICOAGULANT [id number] 11:04:00 Test Item Value Reference Range Comments [...] reported result: 1.05 Edited by: SMITA on 07/06/18:440447 1510: SILICA CLOTTING previously reported as: 1.05 ARTERIAL THROMBOPHILIA [id number] 11:04:00 Test Item Value Reference Range Comments PROTHROMBIN 3 NO MUTATION () PROTHROMBIN (FACTOR II) 73057F>A UNTRANSLATED (test DETECTED MUTATION INTERPRETATION:This code=UG8OUBO) individual is negative (normal) for the S87657Grhstqtmm in the Prothrombin/Factor II gene. Increased riskof thrombophilia can be caused by a variety of genetic andnon-genetic factors not screened for this assay. Laboratory testing supervised and results monitored Peg Segura, Ph.D., [facility], [facility], [facility]. MUTATION ANALYSIS:The J44606Y mutation [FL772809.1:g.47179B>A (c.*97G>A)] inthe Prothrombin/Factor II gene is the second most commoninherited risk factor for thrombosis occuring inapproximately 2% of Caucasians. Presence of the mutation isassociated with an elevation of prothrombin levels to about30% above normal in heterozygotes and 70% above normal inhomozygotes. The D24300H mutation is detected bypolymerase chain reaction (PCR) and flourescent probehybridization to the targeted region, followed by meltingcurve analysis with a real time PCR system. Although rare,false positive or false negative results may occur. Allresults should be interpreted in the context of clinicalfindings, relevant history, and other laboratory data. This test was developed and its analytical performancecharacteristics have been determined by [facility]. It has not beencleared or approved by the FDA. This assay has beenvalidated pursuant to the CLIA regulations and is used forclinical purposes. Health care providers, please contact your local [facility] genetic counselor or call [phone]) for assistance with interpretation of theseresults. Performed by: [facility]/[place] [address] ACTIVATED PROT C 3.09 RATIO 2.31-5.00 Ratios [...] supervised and results monitored byBjorn Cardoza, Ph.D., [facility], [facility]. MUTATION ANALYSIS:The Factor v Leiden (R560Q) mutation [NM 282251.2: c.1601G>A(p.R534Q)] in the Factor V gene is [...] its analytical performancecharacteristics have been determined by [facility]. It has not beencleared or approved by the FDA. This assay has beenvalidated pursuant to the CLIA regulations and is used forclinical purposes. Health care providers, please contact your local [facility]' genetic counselor or call [phone]) for assistance with interpretation of theseresults. Performed by: [facility]/[place] [address] PROTEIN S FREE (test 56 % 68-126 [...] yet been included into the APS criteria. FQQR-6-WLTOT I IGM SMU 0.0-20.0 (test code=GPIIGM) RRFD-8-UCJJX I IGG SGU 0.0-20.0 (test code=GPIIGG) HAJK-2-IFKCV I IGA 0.5 AHMET 0.0-20.0 The Antiphospholipid [...] HIGH SENSITIVITY CRP mg/dl 0.000-0.747 (test code=CRPHS) [id number] 11:04:00 Test Item Value Reference Range Comments FIBRINOGEN (test code=FIB) 640 MG/DL 160-450 Excess administration of anticoagulants and/or FibrinDegradation Products may affect Fibrinogen value. FACTOR [id number] 11:04:00 Test Item Value Reference Range Comments [...] Antithrombin levels are not clinicallysignificant. PROTEIN C [id number] 11:04:00 Test Item Value Reference Range Comments [...] increased levels of Protein C. PROTEIN C [id number] 11:04:00 Test Item Value Reference Range Comments PROTEIN C ANTIGENIC (test 71 % 70-140 Decreased levels of Protein C code=PROTCAG) Antigen may be found incongenital deficiency, treatment with oral anticoagulants,liver disease, D.I.C. and post surgery. Performed by: [facility] [address] PROTEIN S [id number] 11:04:00 Test Item Value Reference Range Comments PROTEIN S TOTAL (test 68 % 70-140 Performed by: [facility] code=PROTSTOT) Diagnostics/[place] [address] PROTEIN S FUNC (test 70 % 74-148 Protein S deficiency may be acquired code=PROTSFN) due to recentthrombosis, oral anticoagulant therapy, , oralcontraceptives or hormone replacement therapy, liverdysfunction, recent surgery, DIC, and vitamin K deficiency.Hereditary deficiency of Protein S show decreased levels butare rare. Elevated Protein S levels are not clinicallysignificant. Only decreased levels are associated with anincreased thrombotic risk. MTHF REDUCTASE (PCR) [id number] 11:04:00 Test Item Value Reference Range Comments MTHF REDUCTASE (PCR) 677 (test code=MTHFR 677) LUPUS ANTICOAGULANT [id number] 11:03:00 Test Item Value Reference Range Comments [...] reported result: 1.05 Edited by: SMITA on 07/06/18:202376/ 1510: SILICA CLOTTING previously reported as: 1.05 ARTERIAL THROMBOPHILIA [id number] 11:03:00 Test Item Value Reference Range Comments PROTHROMBIN 3 NO MUTATION () PROTHROMBIN (FACTOR II) 03061L>A UNTRANSLATED (test DETECTED MUTATION INTERPRETATION:This code=HY7EXSN) individual is negative (normal) for the B54521Qkxpyhinm in the Prothrombin/Factor II gene. Increased riskof thrombophilia can be caused by a variety of genetic andnon-genetic factors not screened for this assay. Laboratory testing supervised and results monitored byTarah Segura, Ph.D., [facility], [facility], [facility]. MUTATION ANALYSIS:The I99262N mutation [WR141904.1:g.94957Q>A (c.*97G>A)] inthe Prothrombin/Factor II gene is the second most commoninherited risk factor for thrombosis occuring inapproximately 2% of Caucasians. Presence of the mutation isassociated with an elevation of prothrombin levels to about30% above normal in heterozygotes and 70% above normal inhomozygotes. The A33525U mutation is detected bypolymerase chain reaction (PCR) and flourescent probehybridization to the targeted region, followed by meltingcurve analysis with a real time PCR system. Although rare,false positive or false negative results may occur. Allresults should be interpreted in the context of clinicalfindings, relevant history, and other laboratory data. This test was developed and its analytical performancecharacteristics have been determined by [facility]. It has not beencleared or approved by the FDA. This assay has beenvalidated pursuant to the CLIA regulations and is used forclinical purposes. Health care providers, please contact your local [facility] genetic counselor or call [phone]) for assistance with interpretation of theseresults. Performed by: [facility]/[place] [address] ACTIVATED PROT C 3.09 RATIO 2.31-5.00 Ratios [...] supervised and results monitored byBjorn Cardoza, Ph.D., [facility], [facility]. MUTATION ANALYSIS:The Factor v Leiden (R560Q) mutation [NM 903855.2: c.1601G>A(p.R534Q)] in the Factor V gene is [...] its analytical performancecharacteristics have been determined by [facility]. It has not beencleared or approved by the FDA. This assay has beenvalidated pursuant to the CLIA regulations and is used forclinical purposes. Health care providers, please contact your local [facility] genetic counselor or call [phone]) for assistance with interpretation of theseresults. Performed by: [facility]/[place] [address] PROTEIN S FREE (test 56 % 68-126 [...] yet been included into the APS criteria. KAQC-9-MKQAG I IGM SMU 0.0-20.0 (test code=GPIIGM) BRMM-7-SMDYT I IGG SGU 0.0-20.0 (test code=GPIIGG) QYZK-8-TOAKZ I IGA 0.5 AHMET 0.0-20.0 The Antiphospholipid [...] HIGH SENSITIVITY CRP mg/dl 0.000-0.747 (test code=CRPHS) [id number] 11:03:00 Test Item Value Reference Range Comments FIBRINOGEN (test code=FIB) 640 MG/DL 160-450 Excess administration of anticoagulants and/or FibrinDegradation Products may affect Fibrinogen value. FACTOR [id number] 11:03:00 Test Item Value Reference Range Comments [...] Antithrombin levels are not clinicallysignificant. PROTEIN C [id number] 11:03:00 Test Item Value Reference Range Comments [...] increased levels of Protein C. PROTEIN C [id number] 11:03:00 Test Item Value Reference Range Comments PROTEIN C ANTIGENIC (test 71 % 70-140 Decreased levels of Protein C code=PROTCAG) Antigen may be found incongenital deficiency, treatment with oral anticoagulants,liver disease, D.I.C. and post surgery. Performed by: [facility]/[place] [address] PROTEIN S [id number] 11:03:00 Test Item Value Reference Range Comments [...] with anincreased thrombotic risk. MTHF REDUCTASE (PCR) [id number] 11:03:00 Test Item Value Reference Range Comments MTHF REDUCTASE (PCR) 677 (test code=MTHFR 677) LUPUS ANTICOAGULANT [id number] 21:21:00 Test Item Value Reference Range Comments [...] reported result: 1.05 Edited by: SMITA on 07/06/18:[id number] 1510: SILICA CLOTTING previously reported as: 1.05 ARTERIAL THROMBOPHILIA [id number] 21:21:00 Test Item Value Reference Range Comments PROTHROMBIN 3 UNTRANSLATED (test code=JW1HNFQ) ACTIVATED PROT C 3.09 RATIO 2.31-5.00 Ratios [...] yet been included into the APS criteria. SNYN-8-WXJSX I IGM SMU 0.0-20.0 (test code=GPIIGM) JUFZ-4-PTWVO I IGG SGU 0.0-20.0 (test code=GPIIGG) NNUU-6-KSPSN I IGA 0.5 AHMET 0.0-20.0 The Antiphospholipid [...] HIGH SENSITIVITY CRP mg/dl 0.000-0.747 (test code=CRPHS) [id number] 21:21:00 Test Item Value Reference Range Comments FIBRINOGEN (test code=FIB) 640 MG/DL 160-450 Excess administration of anticoagulants and/or FibrinDegradation Products may affect Fibrinogen value. FACTOR [id number] 21:21:00 Test Item Value Reference Range Comments [...] Antithrombin levels are not clinicallysignificant. PROTEIN C [id number] 21:21:00 Test Item Value Reference Range Comments [...] increased levels of Protein C. PROTEIN C [id number] 21:21:00 Test Item Value Reference Range Comments PROTEIN C ANTIGENIC (test 71 % 70-140 Decreased levels of Protein C code=PROTCAG) Antigen may be found incongenital deficiency, treatment with oral anticoagulants,liver disease, D.I.C. and post surgery. Performed by: [facility] [address] PROTEIN S [id number] 21:21:00 Test Item Value Reference Range Comments [...] with anincreased thrombotic risk. MTHF REDUCTASE (PCR) [id number] 21:21:00 Test Item Value Reference Range Comments MTHF REDUCTASE (PCR) 677 (test code=MTHFR 677) ANTIPHOSPHATIDYL SERINE [id number] 16:18:00 Test Item Value Reference Range Comments APS ABS IGG (test 2 GPS IgG 0-11 Performed At: [facility] code=APSIGG) [address] [id number] Batista MD Ph:[phone] APS ABS IGM (test 5 MPS IgM 0-25 code=APSIGM) APS ABS IGA (test 1 APS IgA 0-20 code=APSIGA) LUPUS ANTICOAGULANT [id number] 14:43:00 Test Item Value Reference Range Comments [...] 61.8-83.8 Sec Effective 07/21/2013 PTT 1:1 MIX DIRECTOR VOICE (test SECS code=PTTMIX2) PTT 1:3 MIX (test [...] reported result: 1.05 Edited by: SMITA on 07/06/18:170340 1510: SILICA CLOTTING previously reported as: 1.05 ARTERIAL THROMBOPHILIA [id number] 14:43:00 Test Item Value Reference Range Comments PROTHROMBIN 3 UNTRANSLATED (test code=LM0CVDN) ACTIVATED PROT C 3.09 RATIO 2.31-5.00 Ratios [...] yet been included into the APS criteria. TRTY-6-YKWZY I IGM SMU 0.0-20.0 (test code=GPIIGM) MQPA-8-NSEKO I IGG SGU 0.0-20.0 (test code=GPIIGG) EFAA-9-DJDFY I IGA 0.5 AHMET 0.0-20.0 The Antiphospholipid [...] HIGH SENSITIVITY CRP mg/dl 0.000-0.747 (test code=CRPHS) [id number] 14:43:00 Test Item Value Reference Range Comments FIBRINOGEN (test code=FIB) 640 MG/DL 160-450 Excess administration of anticoagulants and/or FibrinDegradation Products may affect Fibrinogen value. FACTOR [id number] 14:43:00 Test Item Value Reference Range Comments [...] Antithrombin levels are not clinicallysignificant. PROTEIN C [id number] 14:43:00 Test Item Value Reference Range Comments [...] increased levels of Protein C. PROTEIN C [id number] 14:43:00 Test Item Value Reference Range Comments PROTEIN C ANTIGENIC (test 71 % 70-140 Decreased levels of Protein C code=PROTCAG) Antigen may be found incongenital deficiency, treatment with oral anticoagulants,liver disease, D.I.C. and post surgery. Performed by: [facility] [address] PROTEIN S [id number] 14:43:00 Test Item Value Reference Range Comments [...] with anincreased thrombotic risk. MTHF REDUCTASE (PCR) [id number] 14:43:00 Test Item Value Reference Range Comments MTHF REDUCTASE (PCR) 677 (test code=MTHFR 677) LUPUS ANTICOAGULANT [id number] 14:31:00 Test Item Value Reference Range Comments [...] 61.8-83.8 Sec Effective 07/21/2013 PTT 1:1 MIX DIRECTOR VOICE (test SECS code=PTTMIX2) PTT 1:3 MIX (test [...] reported result: 1.05 Edited by: SMITA on 07/06/18:818266 1510: SILICA CLOTTING previously reported as: 1.05 ARTERIAL THROMBOPHILIA [id number] 14:31:00 Test Item Value Reference Range Comments PROTHROMBIN 3 UNTRANSLATED (test code=QW9TLDD) ACTIVATED PROT C 3.09 RATIO 2.31-5.00 Ratios [...] yet been included into the APS criteria. YODT-1-ZUSAW I IGM SMU <20 (test code=GPIIGM) NLUD-1-JLICT I IGG UNITS <20 (test code=GPIIGG) HJZB-0-UJPTX I IGA 0.0-20.0 (test code=GPIIGA) HOMOCYSTEINE (test TEST NOT PERFORMED 3.2-10.7 code=HOMOCY) umol/L HIGH SENSITIVITY CRP mg/dl 0.000-0.747 (test code=CRPHS) [id number] 14:31:00 Test Item Value Reference Range Comments FIBRINOGEN (test code=FIB) 640 MG/DL 160-450 Excess administration of anticoagulants and/or FibrinDegradation Products may affect Fibrinogen value. FACTOR [id number] 14:31:00 Test Item Value Reference Range Comments [...] Antithrombin levels are not clinicallysignificant. PROTEIN C [id number] 14:31:00 Test Item Value Reference Range Comments [...] increased levels of Protein C. PROTEIN C [id number] 14:31:00 Test Item Value Reference Range Comments PROTEIN C ANTIGENIC (test 71 % 70-140 Decreased levels of Protein C code=PROTCAG) Antigen may be found incongenital deficiency, treatment with oral anticoagulants,liver disease, D.I.C. and post surgery. Performed by: [facility]/[place] [address] PROTEIN S [id number] 14:31:00 Test Item Value Reference Range Comments [...] with anincreased thrombotic risk. MTHF REDUCTASE (PCR) [id number] 14:31:00 Test Item Value Reference Range Comments MTHF REDUCTASE (PCR) 677 (test code=MTHFR 677)
[2018-10-18 08:24] VITALS: TEMP 97.6
[2018-10-18 08:27] VITALS: O2SAT 99
[2018-10-18 08:29] VITALS: BP 101/64
--- NOTE | 2018-10-18 10:53 | RAD REPORT ---
EXAM DESCRIPTION: RAD - Chest Single View - 10/18/2018 9:12 am CLINICAL HISTORY: COUGH Chest pain. COMPARISON: Chest Single View dated 10/06/2018; Chest Pa And Lat (2 Views) dated 08/10/2018; Chest Sin gle View dated 05/23/2018; Chest Single View dated 01/21/2018 FINDINGS: Portable technique limits examination quality. The lungs are grossly clear. The heart is moderately enlarged in size with a dual lead pacer device p resent. No displaced fractures. IMPRESSION: No acute intrathoracic process suspected.
--- NOTE | 2018-10-19 07:10 | EKG ---
Test Date: 2018-10-18 Test Time: 05:30:51 Electric[employer] Substation: [facility] MEASUREMENT RESULTS: Intervals: Rate: 64 [place]: 180 QRSD: 146 QT: 448 QTc: 462 [place]: P: 2 [place]: 180 QRS: -13 T: 8 INTERPRETIVE STATEMENTS: Normal sinus rhythm Right bundle branch block Inferior infarct, age undetermined Abnormal ECG Compared to ECG 10/06/2018 01:59:21 Second-degree AV block, Mobitz type I (Wenckebach) no longer present Left-axis deviation no longer present Myocardial infarct finding still present Electronically Signed On 10-19-18 07:10:15 CDT by Guilherme Sharma
== END 2018-10-18 08:11 | disposition home or self-care (01) ==
LOC: ER 05:25
DX: S20.221A Contusion of right back wall of thorax, initial encounter (principal); I48.91 Unspecified atrial fibrillation; I48.92 Unspecified atrial flutter; I10 Essential (primary) hypertension; E78.00 Pure hypercholesterolemia, unspecified; I50.9 Heart failure, unspecified; I25.2 Old myocardial infarction; F41.9 Anxiety disorder, unspecified; F90.9 Attention-deficit hyperactivity disorder, unspecified type; Z79.01 Long term (current) use of anticoagulants; Z88.5 Allergy status to narcotic agent; Z88.6 Allergy status to analgesic agent; Z88.8 Allergy status to other drugs, medicaments and biological substances; Z95.0 Presence of cardiac pacemaker
CPT/HCPCS: 36415; 70450; 71045; 71260; 72125; 74177; 80048; 80076; 82962; 83735; 83880; 84484; 85025; 85610; 93005; J1170; J2405; J7030; Q9967

== ENCOUNTER 2018-11-11 20:59 | Emergency (ER) | payer OTHER ==
--- OUTSIDE RECORDS SUMMARY | 2018-11-11 21:02 | XMS REPORT | Clinical Summary ---
:1970 Author Organization [facility] Address [address] [place] [address] Care Team Providers Name Role Phone Asked, [...] Active 300 MG by mouth tabletIndications: daily. prevention of acute gout attack atorvastatin (LIPITOR) Take 40 mg by 0 Active 40 MG mouth tabletIndications: nightly. hyperlipidemia clonAZEPAM (KlonoPIN) Take by 0 Active 1 MG mouth. Take tabletIndications: 1/2 tablet in anxiety morning, 1/2 tablet at noon, and 1 tablet in the evening docusate sodium Take 100 mg 0 Active (COLACE) 100 MG by mouth capsuleIndications: daily. constipation furosemide (LASIX) 80 Take 80 mg by 0 Active mg tabletIndications: mouth 2 (two) edema times a day. clopidogrel (PLAVIX) Take 75 mg by 0 Active 75 mg mouth daily. tabletIndications: thrombosis prevention after PCI metOLazone (ZAROXOLYN) Take 2.5 mg 0 Active 2.5 MG by mouth tabletIndications: daily as hypertension needed (for weight gain greater than 5 [...] CR (three) times tabletIndications: a day. Three hypokalemia prevention tabs QID methocarbamol Take 750 mg 0 Active (ROBAXIN) 750 MG by mouth 2 tabletIndications: (two) times a muscle spasm day. ranolazine (RANEXA) Take 1,000 mg 0 Active 1,000 mg 12 hr by mouth 2 tabletIndications: (two) times a Chronic Stable Angina day. Pectoris (DO NOT USE) warfarin (COUMADIN) 10 Take 10 mg by 0 Active MG tabletIndications: mouth. On pulmonary Friday, thromboembolism , Friday, Friday warfarin (COUMADIN) Take 7.5 mg 0 Active 7.5 MG by mouth. On tabletIndications: Friday, pulmonary Friday, thromboembolism Friday cyanocobalamin 1,000 Inject 1,000 0 Active [...] MG by mouth 3 tabletIndications: (three) times iron deficiency anemia a day with meals. AMILoride (MIDAMOR) 5 Take 5 mg by 0 Active MG tabletIndications: mouth 2 (two) hypertension times a day. folic acid (FOLVITE) 1 Take 1 mg by 0 Active MG tabletIndications: mouth daily. folate deficiency aspirin (ECOTRIN) 81 Take 81 mg by [...] the 8 syringeIndications: skin every 12 Acute Pulmonary (twelve) Thromboembolism hours. PARoxetine (PAXIL) 30 Take 30 mg by [...] 01/29/2018 MG tabletIndications: (20 mg total) 8 Anxiety with by mouth Depression daily for 30 days. Active Problems [...] Jules MD 01/23/2018 Intake Access N/A after 11/10/2017 Social History Tobacco Use Types Packs/Day Years [...] 9:25 PM CDT Body Mass Index 40.72 01/23/2018 9:25 PM CDT Plan of Treatment Health Maintenance Due [...] procedure are in the results section. after 11/10/2017 Results POC glucose (01/29/2018 6:14 AM CDT)Only the most recent of21 resultswithin the time period is included. POC glucose 132 (H) 65 - 99 mg/dL [facility] DEPARTMENT OF Comment: PATHOLOGY AND Meter ID: [id number] [employer] International Nurse: Willie Márquez Specimen Performing Organization Address City/State/[facility]ode Phone Number [facility] DEPARTMENT OF PATHOLOGY AND [address] [place] [id number] [facility] Prothrombin time with INR (01/28/2018 11:17 AM CDT)Only the most recent of5 resultswithin the time period is included. Prothrombin time 23.2 (H) 12.0 - 15.0 [facility] DEPARTMENT OF sec PATHOLOGY AND GENOMIC MEDICINE INR 2.0 [facility] DEPARTMENT OF Comment: PATHOLOGY AND The International Normalized Ratio (INR) is a therapeutic GENOMIC MEDICINE monitoring tool for patients who are stable on oral anticoagulant therapy. An INR of 2.0-3.0 is suggested for deep vein thrombosis/pulmonary embolism. Specimen Blood Performing Organization Address City/[facility] Centercode Phone Number [facility] DEPARTMENT OF PATHOLOGY AND [address] [place] [id number] [employer] Estimated GFR (01/25/2018 5:50 AM CDT) GFR Non Af Amer 90 mL/min/1.73 [facility] DEPARTMENT OF m2 PATHOLOGY AND GENOMIC MEDICINE GFR Af Amer >90 mL/min/1.73 [facility] DEPARTMENT OF Comment: m2 PATHOLOGY AND Chronic kidney disease: <60 mL/min/1.73m2 GENOMIC MEDICINE Kidney failure: <15 mL/min/1.73m2 The estimated [...] Americans. Specimen Plasma specimen Performing Organization Address City/State/[facility]ode Phone Number [facility] DEPARTMENT OF PATHOLOGY AND [address] [place] [address] GENOMIC MEDICINE CBC with platelet and differential (01/25/2018 5:50 AM CDT) WBC 13.93 (H) 4.50 - 11.00 [facility] DEPARTMENT OF k/uL PATHOLOGY AND GENOMIC MEDICINE RBC 4.88 4.40 - 6.00 [facility] DEPARTMENT OF m/uL PATHOLOGY AND GENOMIC MEDICINE HGB 12.7 (L) 14.0 - 18.0 [facility] DEPARTMENT OF g/dL PATHOLOGY AND GENOMIC MEDICINE HCT 39.4 (L) 41.0 - 51.0 % [facility] DEPARTMENT OF PATHOLOGY AND GENOMIC MEDICINE MCV 80.7 (L) 82.0 - 100.0 [facility] DEPARTMENT OF fL PATHOLOGY AND GENOMIC MEDICINE MCH 26.0 (L) 27.0 - 34.0 [facility] DEPARTMENT OF PATHOLOGY AND GENOMIC MEDICINE MCHC 32.2 31.0 - 37.0 [facility] DEPARTMENT OF g/dL PATHOLOGY AND GENOMIC MEDICINE RDW - SD 47.6 37.0 - 55.0 [facility] DEPARTMENT OF IN PATHOLOGY AND GENOMIC MEDICINE MPV 9.6 8.8 - 13.2 [facility] DEPARTMENT OF PATHOLOGY AND GENOMIC MEDICINE Platelet count 281 150 - 400 [facility] DEPARTMENT OF k/uL PATHOLOGY AND GENOMIC MEDICINE Nucleated RBC 0.00 /100 WBC [facility] DEPARTMENT OF PATHOLOGY AND GENOMIC MEDICINE Neutrophils 69.6 (H) 39.0 - 69.0 % [facility] DEPARTMENT OF PATHOLOGY AND GENOMIC MEDICINE Lymphocytes 20.5 (L) 25.0 - 45.0 % [facility] DEPARTMENT OF PATHOLOGY AND GENOMIC MEDICINE Monocytes 7.8 0.0 - 10.0 % [facility] DEPARTMENT OF PATHOLOGY AND GENOMIC MEDICINE Eosinophils 0.9 0.0 - 5.0 % [facility] DEPARTMENT OF PATHOLOGY AND GENOMIC MEDICINE Basophils 0.4 0.0 - 1.0 % [facility] DEPARTMENT OF PATHOLOGY AND GENOMIC MEDICINE Immature granulocytes 0.8Comment: 0.0 - 1.0 % [facility] DEPARTMENT OF "Immature PATHOLOGY AND granulocytes" GENOMIC MEDICINE (promyelocytes , myelocytes, metamyelocytes ) Specimen Blood Performing Organization Address City/[facility] Centercode Phone Number [facility] DEPARTMENT OF PATHOLOGY AND [address] [place] [address] [facility] MEDICINE Basic metabolic panel (01/25/2018 5:50 AM CDT) Pathologist [facility] Sodium 137 135 - 148 mEq/L [facility] DEPARTMENT OF PATHOLOGY AND GENOMIC MEDICINE Potassium 3.9 3.5 - 5.0 mEq/L [facility] DEPARTMENT OF PATHOLOGY AND GENOMIC MEDICINE Chloride 98 98 - 112 mEq/L [facility] DEPARTMENT OF PATHOLOGY AND GENOMIC MEDICINE CO2 26 24 - 31 mEq/L [facility] DEPARTMENT OF PATHOLOGY AND GENOMIC MEDICINE Anion gap 13@ANIO 7 - 15 mEq/L [facility] DEPARTMENT OF PATHOLOGY AND GENOMIC MEDICINE BUN 16 6 - 20 mg/dL [facility] DEPARTMENT OF PATHOLOGY AND GENOMIC MEDICINE Creatinine 0.9 0.7 - 1.2 mg/dL [facility] DEPARTMENT OF PATHOLOGY AND GENOMIC MEDICINE Glucose 154 (H) 65 - 99 mg/dL [facility] DEPARTMENT OF PATHOLOGY AND GENOMIC MEDICINE Calcium 9.7 8.3 - 10.2 mg/dL [facility] DEPARTMENT OF PATHOLOGY AND GENOMIC MEDICINE Specimen Plasma specimen Performing Organization Address [facility] Centercode Phone Number [facility] DEPARTMENT OF PATHOLOGY AND [address] [place] [phone] [facility] ECG 12 lead (01/24/2018 7:11 PM CDT) Ventricular rate 94 HM MUSE Atrial rate 94 [facility] MUSE MT interval 162 [facility] MUSE QRSD interval 146 [facility] MUSE QT interval 414 [facility] MUSE QTC interval 517 [facility] MUSE P axis 1 33 [facility] MUSE QRS axis 1 -16 [facility] MUSE T wave axis 17 [facility] MUSE EKG impression Normal sinus rhythm-Right bundle branch block-Lateral infarct ( cited on or before 30-JUL-2017)-Inferior infarct (cited on or before 27-JUL-2017 )-Abnormal ECG-In automated comparison with ECG of 30-JUL-2017 09:06,-No significant change was [facility] MUSE found- Specimen Performing Organization Address City/[facility] Centercode Phone Number [facility] MUSE [address] [place] [address] after 11/10/2017 Insurance Payer Benefit Plan / Subscriber ID Effective Phone Address Type Group Dates COMMERCIAL MISC MISC COMMERCIAL xxxxxxxxxxxx 2017-Prese Commercial nt MISC MEDICAID MISC MEDICAID xxxxxxxxxxxx 2017-Prese HMO REPLACEMENT REPLACEMENT nt Advance Directives Patient has advance care planning documents, and code status on file. For more information, please contact:[place] [address] Code Status Date Activated Date Inactivated Comments Full Code 01/24/2018 5:07 PM 01/29/2018 3:21 PM Code Status decision reached by: Patient Full Code 07/27/2017 10:23 AM 07/31/2017 4:58 PM Code Status decision reached by: Patient Full Code 07/27/2017 5:07 AM 07/27/2017 10:23 AM Code Status decision reached by: Patient
--- OUTSIDE RECORDS SUMMARY | 2018-11-11 21:02 | XMS REPORT | Clinical Summary ---
:1970 Author Organization [facility] Address [address] [place] [address] Care Team Providers Name Role Phone Mark [...] INFLUENZA VACCINE 03/23/2018 Implants Implanted Type Area White Spooler Device Shelf Model / Identifier Expiration Date Serial / Lot [employer] Implanted: Qty: 1 on 12/05/2015 Results Not on fileafter 11/10/2017 Advance Directives For more information, please contact:[place] [id number] [place], [place] [phone] Code Status Date Activated Date Inactivated Comments [...]
--- OUTSIDE RECORDS SUMMARY | 2018-11-11 21:09 | XMS REPORT | Continuity of Care Document ---
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 Hypercholesteremia Resolved Problem 05/20/[address] [facility] Hypertension Resolved Problem 05/20/[address] [facility] Kidney stone Resolved Problem 05/20/[address] [facility] Heart Resolved Problem 05/20/2016 December 04, attack<sup>2</sup> 2016 [place] Bundle branch block, Resolved Problem 05/20/2016 right [place] Sleep apnea Resolved Problem 05/20/[address] [facility] TUBULO-INTERSTITIAL Active [facility] NEPHRITIS, NOT [facility] [place] CHEST PAIN, Active [facility] UNSPECIFIED [place] Medications Medication Details Route Status Patient Ordering Order Source Instructions Provider Date Aspirin 81 mg, 1 tab, Inactive Route: PO, Drug 2015 [place] form: ECTAB, ONCE, Dosing Weight 128.636, kg, Priority: STAT, Start date: 05/17/16 17:16:00 STRADDLE BUGGY OPERATOR, Stop date: 05/17/16 17:16:00 CSTNotes: Do not crush or chew. (Same As: Ecotrin) Saline Flush 10 mL, Route: Inactive 0.9% IVP, Drug Form: 2015 [place] INJ, Dosing Weight 128.636, kg, PRN, PRN Line Flush, Start date: 05/17/16 15:48:00 STRADDLE BUGGY OPERATOR, Duration: 30 day, Stop date: 06/16/16 15:47:00 CSTNotes: (Same as: BD Posiflush) Plavix 75 mg, 1 tab, No Longer Route: PO, Drug Active 2015 [place] form: TAB, Daily, Dosing Weight 131.7, kg, Start date: 05/07/16 9:00:00 STRADDLE BUGGY OPERATOR, Duration: 30 day, Stop date: 06/05/16 9:00:00 CSTNotes: (Same As: Plavix) metoprolol 25 mg 25 mg=1 tab, PO, Active oral tablet, Daily, # 30 tab, 2015 [place] extended release 0 Refill(s) Protonix 40 mg, 1 tab, Inactive Route: PO, Drug 2015 [place] form: ECTAB, Before Dinner, Dosing Weight 131.7, kg, Start date: 05/06/16 16:30:00 STRADDLE BUGGY OPERATOR, Duration: 30 day, Stop date: 06/04/16 16:30:00 CSTNotes: Tablet should not be chewed or crushed. (Same as: Protonix) Lisinopril 2.5 mg, 0.5 tab, Inactive Route: PO, Drug 2015 [place] form: TAB, Daily, Dosing Weight 131.7, kg, Start date: 05/06/16 9:00:00 STRADDLE BUGGY OPERATOR, Duration: 30 day, Stop date: 06/04/16 9:00:00 CSTNotes: (Same as: Prinivil, Zestril) Aspirin 325 MG 325 mg, 1 tab, Inactive Oral Tablet Route: PO, Drug 2015 [place] form: TAB, Daily, Dosing Weight 127.273, kg, Start date: 05/06/16 9:00:00 STRADDLE BUGGY OPERATOR, Duration: 30 day, Stop date: 06/04/16 9:00:00 CSTNotes: Take with food. atorvastatin 40 40 mg=1 tab, PO, Active mg oral tablet Bedtime, # 90 2015 [place] tab, 1 Refill(s) Alprazolam 1 MG 1 mg, 2 tab, No Longer Oral Tablet Route: PO, Drug Active 2015 [place] [Xanax] form: TAB, Q8H, Dosing Weight 131.7, kg, PRN Anxiety, Start date: 05/05/16 22:49:00 STRADDLE BUGGY OPERATOR, Duration: 30 day, Stop date: 06/04/16 22:48:00 CSTNotes: With food or milk (Same as: Xanax) Lipitor 80 mg, 2 tab, No Longer Route: PO, Drug Active 2015 [place] form: TAB, Bedtime, Dosing Weight 127.273, kg, Start date: 05/05/16 21:00:00 STRADDLE BUGGY OPERATOR, Duration: 30 day, Stop date: 06/03/16 21:00:00 CSTNotes: (Same as: Lipitor) Clindamycin 300 mg, 2 cap, No Longer Route: PO, Drug Active 2015 [place] form: CAP, ABXQ6H, Dosing Weight 127.273, kg, Start date: 05/05/16 21:00:00 STRADDLE BUGGY OPERATOR, Stop date: 06/04/16 15:00:00 CSTNotes: (Same As: Cleocin) Saline Flush 10 ml, Route: No Longer 0.9% IVP, Drug Form: Active 2015 [place] INJ, Dosing Weight 127.273, kg, Q12H, Start date: 05/05/16 21:00:00 STRADDLE BUGGY OPERATOR, Duration: 30 day, Stop date: 06/04/16 9:00:00 CSTNotes: preservative free. Insulin, Aspart, 1 unit, 0.01 mL, No Longer Human Route: SUB-Q, Active 2015 [place] Drug form: SOLN, Bedtime, Dosing Weight 127.273, kg, PRN Blood Glucose Results, Start date: 05/05/16 20:27:00 STRADDLE BUGGY OPERATOR, Duration: 30 day, Stop date: 06/04/16 20:26:00 CSTNotes: Roll in palms of hands gently; Do not shake vigorously. (Same as: NovoLOG) "single patient use only" WASTE: F/P - Black; E - Municipal Trash Bin Stable for 28 days at room temperature. Expires in days from Da te Glucagon 1 mg, Route: IM, No Longer Drug form: Active 2015 [place] PDR/INJ, PRN, Dosing Weight 127.273, kg, PRN Blood Glucose Results, Start date: 05/05/16 20:27:00 STRADDLE BUGGY OPERATOR, Duration: 30 day, Stop date: 06/04/16 20:26:00 STRADDLE BUGGY OPERATOR Dextrose 50% 12.5 gm, 25 mL, No Longer Syringe Route: IVP, Drug Active 2015 [place] Form: INJ, Dosing Weight 127.273, kg, PRN, PRN Blood Glucose Results, Start date: 05/05/16 20:27:00 STRADDLE BUGGY OPERATOR, Duration: 30 day, Stop date: 06/04/16 20:26:00 STRADDLE BUGGY OPERATOR Morphine 2 mg, 1 mL, No Longer Route: IVP, Drug Active 2015 [place] form: INJ, Q2H, Dosing Weight 127.273, kg, PRN as needed for chest pain, Priority: STAT, Start date: 05/05/16 20:00:00 STRADDLE BUGGY OPERATOR, Duration: 30 day, Stop date: 06/04/16 19:59:00 CSTNotes: (Same as:MORPhine Sulfate) Plavix 75 mg, 1 tab, Inactive Route: PO, Drug 2015 [place] form: TAB, ONCE, Dosing Weight 127.273, kg, Priority: STAT, Start date: 05/05/16 19:58:00 STRADDLE BUGGY OPERATOR, Stop date: 05/05/16 19:58:00 CSTNotes: (Same As: Plavix) Saline Flush 10 ml, Route: No Longer 0.9% IVP, Drug Form: Active 2015 [place] INJ, Dosing Weight 127.273, kg, PRN, PRN Line Flush, Start date: 05/05/16 19:55:00 STRADDLE BUGGY OPERATOR, Duration: 30 day, Stop date: 06/04/16 19:54:00 CSTNotes: (Same as: BD Posiflush) Albuterol 0.833 3 ml, Route: No Longer MG/ML / NEB, Drug Form: Active 2015 [place] Ipratropium SOLN, Dosing Celina 0.167 Weight 127.273, MG/ML Inhalant kg, PRN, PRN Solution Respiratory Protocol, Start date: 05/05/16 19:55:00 STRADDLE BUGGY OPERATOR, Duration: 30 day, Stop date: 06/04/16 19:54:00 CSTNotes: (Same as: Duoneb) Nystatin 100 1 appl, Route: No Longer UNT/MG Topical TOP, PRN, Drug Active 2015 [place] Powder form: PWDR, PRN For Fungal Prophylaxis, Start date: 05/05/16 19:55:00 STRADDLE BUGGY OPERATOR, Duration: 30 day, Stop date: 06/04/16 19:54:00 [...] Volume: 500 mL, Start date: 05/05/16 19:43:00 STRADDLE BUGGY OPERATOR, Duration: 30 day, Stop date: 06/04/16 19:42:00 STRADDLE BUGGY OPERATOR Heparin 60 Route: IVP, PRN, No Longer unit/kg Bolus 5,800 unit, 5.8 Active 2015 [place] (Heparin Dosing mL, Drug form: Weight) INJ, PRN, Heparin Protocol, Start date: 05/05/16 19:43:00 STRADDLE BUGGY OPERATOR Stop date: 06/04/16 19:42:00 STRADDLE BUGGY OPERATOR Heparin 30 Route: IVP, PRN, No Longer unit/kg Bolus 2,900 unit, 2.9 Active 2015 [place] (Heparin Dosing mL, Drug form: Weight) INJ, PRN, Heparin Protocol, Start date: 05/05/16 19:43:00 STRADDLE BUGGY OPERATOR Stop date: 06/04/16 19:42:00 STRADDLE BUGGY OPERATOR Heparin - one 4,000 unit, 4 Inactive time bolus for mL, Route: IVP, 2016 [place] ACS Drug form: INJ, ONCE, Dosing Weight 127.273, kg, Priority: STAT, Start date: 05/05/16 19:43:00 STRADDLE BUGGY OPERATOR, Stop date: 05/05/16 19:43:00 STRADDLE BUGGY OPERATOR Morphine 4 mg, 1 mL, Inactive Route: IVP, Drug 2015 [place] form: INJ, ONCE, Dosing Weight 127.273, kg, Priority: STAT, Start date: 05/05/16 19:25:00 STRADDLE BUGGY OPERATOR, Stop date: 05/05/16 19:25:00 CSTNotes: (Same as:MORPhine Sulfate) Nitroglycerin 1 inch, Route: Inactive 0.02 MG/MG TOP, Dosing 2015 [place] Topical Ointment Weight 127.273, kg, ONCE, STAT, Start date: 05/05/16 17:40:00 STRADDLE BUGGY OPERATOR, Stop date: 05/05/16 17:40:00 STRADDLE BUGGY OPERATOR Aspirin 81 MG 243 mg, Route: Inactive Chewable Tablet PO, Drug form: 2015 [place] CHEWTAB, ONCE, Dosing Weight 127.273, kg, Priority: STAT, Start date: 05/05/16 17:17:00 STRADDLE BUGGY OPERATOR, Stop date: 05/05/16 17:17:00 STRADDLE BUGGY OPERATOR Morphine 4 mg, Route: Inactive IVP, ONCE, 2015 [place] Dosing Weight 127.273, kg, Priority: STAT, Start date: 05/05/16 17:15:00 STRADDLE BUGGY OPERATOR, Stop date: 05/05/16 17:15:00 STRADDLE BUGGY OPERATOR Saline Flush 10 mL, Route: No Longer 0.9% IVP, Drug Form: Active 2015 [place] INJ, Dosing Weight 128.182, kg, PRN, PRN Line Flush, Start date: 05/05/16 16:55:00 STRADDLE BUGGY OPERATOR, Duration: 30 day, Stop date: 06/04/16 16:54:00 CSTNotes: preservative free. Acetaminophen 1 - 2 tab, PO, No Longer 300 MG / Codeine Q4H, PRN Pain, X Active 2015 [place] Phosphate 30 MG 2 day, # 20 tab, Oral Tablet 0 Refill(s) [Tylenol with Codeine #3] Morphine 4 mg, 1 mL, Inactive Route: IVP, Drug 2015 [place] form: INJ, ONCE, Dosing Weight 128.182, kg, Priority: STAT, Start date: 04/25/16 19:51:00 CDT, Stop date: 04/25/16 19:51:00 CDTNotes: (Same as:MORPhine Sulfate) Zofran 4 mg, 2 mL, Inactive Route: IVP, Drug 2015 [place] form: INJ, ONCE, Dosing Weight 128.182, kg, Priority: STAT, Start date: 04/25/16 18:23:00 CDT, Stop date: 04/25/16 18:23:00 CDTNotes: (Same as: Zofran) MEDICATION WASTE Product Size: 4 mg Product Wasted: ___ mg Morphine 4 mg, 1 mL, Inactive Route: IVP, Drug 2015 [place] form: INJ, ONCE, Dosing Weight 128.182, kg, Priority: STAT, Start date: 04/25/16 18:23:00 CDT, Stop date: 04/25/16 18:23:00 CDTNotes: (Same as:MORPhine Sulfate) Saline Flush 10 mL, Route: Inactive 0.9% IVP, Drug Form: 2015 [place] INJ, Dosing Weight 129.091, kg, PRN, PRN Line Flush, Start date: 04/25/16 18:07:00 CDT, Duration: 30 day, Stop date: 05/25/16 17:06:00 CSTNotes: (Same as: BD Posiflush) Acetaminophen 1 tab, PO, Q6H, Active 300 MG / Codeine PRN Pain, X 5 2015 [place] Phosphate 30 MG day, # 20 tab, 0 Oral Tablet Refill(s) Morphine 4 mg, Route: Inactive IVP, ONCE, 2015 [place] Dosing Weight 129.091, kg, Priority: STAT, Start date: 03/05/16 8:44:00 CDT, Stop date: 03/05/16 8:44:00 CDT Ondansetron 4 mg, Route: Inactive IVP, Drug form: 2015 [place] INJ, ONCE, Dosing Weight 129.091, kg, Priority: STAT, Start date: 03/05/16 7:35:00 CDT, Stop date: 03/05/16 7:35:00 CDT Aspirin 324 mg, Route: Inactive PO, ONCE, Dosing 2015 [place] Weight 129.091, kg, Priority: STAT, Start date: 03/05/16 7:22:00 CDT, Stop date: 03/05/16 7:22:00 CDT Morphine 2 mg, Route: Inactive IVP, ONCE, 2015 [place] Dosing Weight 129.091, kg, Priority: STAT, Start date: 03/05/16 7:22:00 CDT, Stop date: 03/05/16 7:22:00 CDT Saline Flush 10 mL, Route: Inactive 0.9% IVP, Drug Form: 2015 [place] INJ, Dosing Weight 129.091, kg, PRN, PRN Line Flush, Start date: 03/05/16 7:22:00 CDT, Duration: 30 day, Stop date: 04/04/16 7:21:00 CDTNotes: (Same as: BD Posiflush) Dilaudid 0.5 mg, 0.5 mL, Inactive Route: IVP, Drug 2015 [place] form: INJ, ONCE, Dosing Weight 128.636, kg, Priority: STAT, Start date: 03/02/16 7:40:00 CDT, Stop date: 03/02/16 7:40:00 CDTNotes: Same as: Dilaudid Ketorolac 30 mg, 1 mL, Inactive Route: IVP, Drug 2015 [place] form: INJ, ONCE, Dosing Weight 128.636, kg, Priority: STAT, Start date: 03/02/16 5:25:00 CDT, Stop date: 03/02/16 5:25:00 CDTNotes: (Same as:Toradol) IV bolus must be given >15 seconds. Give IM administration slowly and deeply into the muscle. Not for use > 4 days MEDICATION WASTE Product Size: 30 mg Product Wasted: ___ mg Morphine 4 mg, 1 mL, Inactive Route: IVP, Drug 2015 [place] form: INJ, ONCE, Dosing Weight 128.636, kg, Priority: STAT, Start date: 03/02/16 5:25:00 CDT, Stop date: 03/02/16 5:25:00 CDTNotes: (Same as:MORPhine Sulfate) Ondansetron 4 mg, 2 mL, Inactive Route: IVP, Drug 2015 [place] form: INJ, ONCE, Dosing Weight 128.636, kg, Priority: STAT, Start date: 03/02/16 5:25:00 CDT, Stop date: 03/02/16 5:25:00 CDTNotes: (Same as: Zofran) MEDICATION WASTE Product Size: 4 mg Product Wasted: ___ mg Saline Flush 10 mL, Route: Inactive 0.9% IVP, Drug Form: 2015 [place] INJ, Dosing Weight 128.636, kg, PRN, PRN Line Flush, Start date: 03/02/16 5:25:00 CDT, Duration: 30 day, Stop date: 04/01/16 5:24:00 CDTNotes: (Same as: BD Posiflush) Sodium Chloride 1,000 mL, 2,000 Inactive 0.154 MEQ/ML ml/hr, Infuse 2015 [place] Injectable Over: 30 Solution minutes, Route: IV, 1,000, Drug form: INJ, ONCE, Priority: STAT, Dosing Weight 128.636 kg, Start date: 03/02/16 5:25:00 CDT, Duration: 1 doses or times, Stop date: 03/02/16 5:25:00 CDT Acetaminophen 1 tab, PO, Q6H, Active 300 MG / Codeine PRN Pain, # 28 2015 [place] Phosphate 30 MG tab, 0 Refill(s) Oral Tablet [Tylenol with Codeine #3] Protonix 40 mg, 1 tab, No Longer Route: PO, Drug Active 2015 [place] form: ECTAB, Before Breakfast, Dosing Weight 129.545, kg, Start date: 02/18/16 7:30:00 CDT, Duration: 30 day, Stop date: 03/18/16 7:30:00 CDTNotes: Tablet should not be chewed or crushed. (Same as: Protonix) Lipitor 80 mg, 2 tab, No Longer Route: PO, Drug Active 2015 [place] form: TAB, Bedtime, Dosing Weight 129.545, kg, Start date: 02/17/16 21:00:00 CDT, Duration: 30 day, Stop date: 03/17/16 21:00:00 CDTNotes: (Same as: Lipitor) Morphine 2 mg, 1 mL, No Longer Route: IVP, Drug Active 2015 [place] form: INJ, Q4H, Dosing Weight 129.545, kg, PRN Pain Score 7-10, Start date: 02/17/16 11:54:00 CDT, Duration: 30 day, Stop date: 03/18/16 11:53:00 CDTNotes: (Same as:MORPhine Sulfate) Lovenox 40 mg, 0.4 mL, No Longer Route: SUB-Q, Active 2015 [place] Drug form: INJ, [id number], Dosing Weight 129.545, kg, Start date: 02/17/16 10:00:00 CDT, Duration: 30 day, Stop date: 03/17/16 10:00:00 CDTNotes: (Same as: Lovenox) Lisinopril 2.5 mg, 0.5 tab, No Longer Route: PO, Drug Active 2015 [place] form: TAB, Daily, Dosing Weight 129.545, kg, Start date: 02/17/16 9:55:00 CDT, Duration: 30 day, Stop date: 03/18/16 9:00:00 CDTNotes: (Same as: Prinivil, Zestril) Imdur 30 mg, 1 tab, No Longer Route: PO, Drug Active 2015 [place] form: ERTAB, QAM, Dosing Weight 129.545, kg, Start date: 02/17/16 9:54:00 CDT, Duration: 30 day, Stop date: 03/18/16 9:00:00 CDTNotes: (Same as:Imdur) "Do Not Crush" Take on empty stomach/ full glass of water. Do not crush Plavix 75 mg, 1 tab, No Longer Route: PO, Drug Active 2015 [place] form: TAB, Daily, Dosing Weight 129.545, kg, Start date: 02/17/16 9:54:00 CDT, Duration: 30 day, Stop date: 03/18/16 9:00:00 CDTNotes: (Same As: Plavix) Aspirin 81 MG 81 mg, 1 tab, No Longer Enteric Coated Route: PO, Drug Active 2015 [place] Tablet form: ECTAB, Daily, Dosing Weight 129.545, kg, Start date: 02/17/16 9:54:00 CDT, Duration: 30 day, Stop date: 03/18/16 9:00:00 CDTNotes: Do not crush or chew. (Same As: Ecotrin) Zofran ODT 4 mg, 1 tab, No Longer Route: PO, Drug Active 2015 [place] form: TABDIS, Q12H, Dosing Weight 129.545, kg, PRN Nausea, Start date: 02/17/16 9:25:00 CDT, Duration: 30 day, Stop date: 03/18/16 9:24:00 CDTNotes: (Same as: Zofran ODT) Nitroglycerin 0.4 mg, 1 tab, No Longer 0.4 MG Route: SL, Drug Active 2015 [place] Sublingual form: TAB, Tablet Q5Min, Dosing [Nitrostat] Weight 129.545, kg, PRN Chest Pain, Start date: 02/17/16 9:25:00 CDT, Duration: 30 day, Stop date: 03/18/16 9:24:00 CDTNotes: (Same as:Nitroquick, Nitrostat) "Do Not Crush" Sublingual tablet Alprazolam 1 MG 1 mg, 1 tab, No Longer Oral Tablet Route: PO, Drug Active 2015 [place] [Xanax] form: TAB, Q8H, Dosing Weight 129.545, kg, PRN Anxiety, Start date: 02/17/16 9:23:00 CDT, Duration: 30 day, Stop date: 03/18/16 9:22:00 CDTNotes: With food or milk (Same as: Xanax) pneumococcal 0.5 mL, Route: Inactive capsular IM, Drug Form: 2016 [place] polysaccharide INJ, Daily, type 1 vaccine / [...] No Longer Disintegrating Q12H, PRN Active 2015 [place] Tablet [Zofran] Nausea, 0 Refill(s) Aspirin 81 MG 81 mg=1 tab, PO, Active Enteric Coated Daily, # 90 tab, 2015 [place] Tablet 3 Refill(s) Nitroglycerin 0.4 mg=1 tab, No Longer 0.4 MG SL, Q5Min, PRN Active 2015 [place] Sublingual Chest Pain, # Tablet 100 tab, 0 [Nitrostat] Refill(s) pantoprazole 40 40 mg=1 tab, PO, Active MG Enteric Daily, # 30 tab, 2016 [place] Coated Tablet 0 Refill(s) [Protonix] 24 HR Isosorbide 30 mg=1 tab, PO, Active Mononitrate 30 QAM, # 30 tab, 0 2015 [place] MG Extended Refill(s) Release Tablet [Imdur] Hydroxyzine 25 mg=1 tab, PO, No Longer Hydrochloride 25 Bedtime, PRN Active 2016 [place] MG Oral Tablet Sleep, # 30 tab, 0 Refill(s) Furosemide 20 MG 20 mg=1 tab, PO, Active Oral Tablet Daily, # 30 tab, 2016 [place] 0 Refill(s) Potassium 20 mEq=1 tab, Active Chloride 20 MEQ PO, Daily, # 90 2016 [place] Extended Release tab, 1 Refill(s) Tablet [Klor-Con] Alprazolam 1 MG 1 mg=1 tab, PO, Active Oral Tablet Q8H, PRN 2016 [place] [Xanax] Anxiety, 0 Refill(s) Metformin 1 tab, PO, BID, Active hydrochloride # 60 tab, 0 2015 [place] 500 MG / Refill(s) repaglinide 1 MG Oral Tablet Acetaminophen 1 tab, PO, Q6H, No Longer 300 MG / Codeine PRN Pain, # 28 Active 2016 [place] Phosphate 30 MG tab, 0 Refill(s) Oral Tablet [Tylenol with Codeine #3] lisinopril 2.5 2.5 mg=1 tab, Active mg oral tablet PO, Daily, # 30 2016 [place] tab, 0 Refill(s) clopidogrel 75 75 mg=1 tab, PO, Active MG Oral Tablet Daily, # 30 tab, 2016 [place] [Plavix] 0 Refill(s) atorvastatin 80 80 mg=1 tab, PO, Active MG Oral Tablet Bedtime, # 30 2016 [place] [Lipitor] tab, 0 Refill(s) Ceftriaxone 1 gm, Route: Inactive IVPB, Drug form: 2015 [place] PDR/INJ, ONCE, Dosing Weight 129.545, kg, Priority: STAT, Start date: 02/17/16 7:01:00 CDT, Stop date: 02/17/16 7:01:00 CDT Dilaudid 0.5 mg, Route: Inactive IVP, ONCE, 2015 [place] Dosing Weight 129.545, kg, Priority: STAT, Start date: 02/17/16 6:28:00 CDT, Stop date: 02/17/16 6:28:00 CDT Zofran 4 mg, Route: Inactive IVP, Drug form: 2015 [place] INJ, ONCE, Dosing Weight 129.545, kg, Priority: STAT, Start date: 02/17/16 5:32:00 CDT, Stop date: 02/17/16 5:32:00 CDT Dilaudid 0.5 mg, Route: Inactive IVP, ONCE, 2015 [place] Dosing Weight 129.545, kg, Priority: STAT, Start date: 02/17/16 5:32:00 CDT, Stop date: 02/17/16 5:32:00 CDT Saline Flush 10 mL, Route: Inactive 0.9% IVP, Drug Form: 2015 [place] INJ, kg, PRN, PRN Line Flush, Start date: 02/17/16 5:19:00 CDT, Duration: 30 day, Stop date: 03/18/16 5:18:00 CDTNotes: (Same as: BD Posiflush) Allergies, Adverse Reactions, Alerts Substance Category Reaction Severity Reaction Status Date Comments Source type Reported beta Assertion Drug Active blockers allergy [place] Flomax Assertion Drug Active allergy [place] Stadol Assertion Drug Active MH allergy [place] traMADol Assertion Drug Active MH allergy [place] Immunizations Immunization Date Given Site Status Last Updated Comments Source pneumococcal 02/17/2016 Not Given [facility] 23-valent vaccine Results Order Name Results Value Reference Date Interpretation Comments Source Range URINE AND UA Mucus Few /LPF None Seen 05/17 STOOL /LPF [place] URINE AND UA Leuk Est Negative Negative 05/17 STOOL [place] (05/17/16 5:16 PM) URINE AND UA Bili Negative Negative 05/17 STOOL [place] *NA* (05/17/16 5:16 PM) URINE AND UA Ketones Negative Negative 05/17 STOOL mg/dL mg/dL [place] URINE AND UA Nitrite Negative Negative 05/17 STOOL [place] (05/17/16 5:16 PM) URINE AND UA 0.2 EU/dL 0.1 - 1.0 05/17 STOOL Urobilinogen [place] URINE AND UA Turbidity Clear Clear 05/17 STOOL [place] (05/17/16 5:16 PM) URINE AND UA Blood Negative Negative 05/17 STOOL [place] (05/17/16 5:16 PM) URINE AND UA Glucose Negative Negative 05/17 [facility]OOL mg/dL mg/dL [place] URINE AND UA Protein Negative Negative 05/17 STOOL mg/dL mg/dL [place] URINE AND UA pH 6.5 5.0 - 8.0 05/17 STOOL [place] URINE AND UA Spec Grav 1.020 <=1.030 05/17 STOOL [place] URINE AND UA Color Yellow Yellow 05/17 STOOL [place] *NA* (05/17/16 5:16 PM) URINE AND UA Sq Epi Rare /LPF Few /LPF 05/17 STOOL [place] URINE AND UA Bacteria Occasional None Seen 05/17 STOOL /HPF /HPF [place] URINE AND UA RBC 0-2 /HPF 0 - 2 05/17 STOOL [place] URINE AND UA WBC 0-2 /HPF None Seen 05/17 STOOL /HPF /2015 [place] CARDIAC Total CK 74 unit/L 12 - 191 05/17 ENZYMES [place] CARDIAC CK MB 0.8 ng/mL 0.5 - 3.6 05/17 ENZYMES [place] CARDIAC Troponin-I null 0.00 - 05/17 ENZYMES 0.40 [place] CARDIAC CK-MB INDEX 1.1 0.0 - 2.5 05/17 [place] CHEM PANEL eGFR 79 05/17 Result Comment: [...] is not recommended in the following populations: [place] 3m2 Individuals with unstable creatinine concentrations, including [...] Lvl 106 meq/L 95 - 109 05/17 [place] CHEM PANEL CO2 28 meq/L 24 - 32 05/17 [place] CHEM PANEL Calcium Lvl 8.8 mg/dL 8.5 - 10.5 05/17 [place] CHEM PANEL Bili Total 0.4 mg/dL 0.2 - 1.3 05/17 [place] CHEM PANEL AGAP 9.7 meq/L 10.0 - 05/17 20.0 [place] CHEM PANEL B/C Ratio 14 6 - 25 05/17 [place] CHEM PANEL ASPARTATE 14 unit/L 0 - 37 05/17 MH [place] CHEM PANEL Total 7.7 g/dL 6.4 - 8.4 05/17 [place] CHEM PANEL Globulin 4.4 g/dL 2.7 - 4.2 05/17 [place] CHEM PANEL A/G Ratio 0.8 0.7 - 1.6 11 [place] CHEM PANEL Glucose Lvl 148 mg/dL 70 - 99 05/17 [place] CHEM PANEL BUN 15 mg/dL 7 - 22 05/17 [place] CHEM PANEL Creatinine 1.11 mg/dL 0.50 - 05/17 MH Lvl 1.40 [place] CHEM PANEL Sodium Lvl 140 meq/L 135 - 145 05/17 [place] CHEM PANEL Potassium 3.7 meq/L 3.5 - 5.1 05/17 MH Lvl [place] CHEM PANEL Albumin Lvl 3.3 g/dL 3.5 - 5.0 05/17 [place] CHEM PANEL Alk Phos 129 unit/L 39 - 136 05/17 [place] CHEM PANEL ALANINE 30 unit/L 0 - 65 05/17 AMINOTRANS [place] RAS HEMATOLOGY MPV 7.3 fL 7.4 - 10.4 05/17 [place] HEMATOLOGY Platelet 281 K/CMM 133 - 450 05/17 [place] HEMATOLOGY RBC X 10x6 5.30 M/CMM 4.70 - 05/17 MH 6.10 [place] HEMATOLOGY WBC X 10x3 10.5 K/CMM 3.7 - 10.4 05/17 [place] HEMATOLOGY Hgb 12.4 g/dL 14.0 - 05/17 MH 18.0 [place] HEMATOLOGY Hct 36.8 % 42.0 - 05/17 MH 54.0 [place] HEMATOLOGY MCV 69.4 fL 80.0 - 05/17 MH 94.0 [place] HEMATOLOGY MCH 23.4 pg 27.0 - 05/17 MH 31.0 [place] HEMATOLOGY MCHC 33.7 g/dL 32.0 - 05/17 MH 36.0 /2015 [place] HEMATOLOGY RDW 17.1 % 11.5 - 05/17 MH 14.5 /2015 [place] HEMATOLOGY aPTT 35.4 s 22.9 - 05/17 35.8 /2015 [place] HEMATOLOGY PROTIME 13.1 s 12.0 - 05/17 MH 14.7 /2015 [place] HEMATOLOGY INR 0.97 0.85 - 05/17 MH 1.17 /2015 [place] HEMATOLOGY Eosinophils 1.1 % 0.0 - 4.0 05/17 [place] HEMATOLOGY Monocytes 6.7 % 2.0 - 12.0 05/17 [place] HEMATOLOGY Segs-Bands # 7.2 K/CMM 1.5 - 8.1 05/17 [place] HEMATOLOGY Basophils 1.1 % 0.0 - 1.0 05/17 [place] HEMATOLOGY Lymphocytes 2.4 K/CMM 1.0 - 5.5 05/17 # /2015 [place] HEMATOLOGY Monocytes # 0.7 K/CMM 0.0 - 0.8 05/17 [place] HEMATOLOGY Eosinophils 0.1 K/CMM 0.0 - 0.5 05/17 # /2015 [place] HEMATOLOGY Microcyte 2+ None Seen 05/17 [place] *ABN* (05/17/16 4:01 PM) HEMATOLOGY Basophils # 0.1 K/CMM 0.0 - 0.2 05/17 [place] HEMATOLOGY Lymphocytes 22.3 % 20.0 - 05/17 40.0 [place] HEMATOLOGY Segs 68.8 % 45.0 - 05/17 75.0 [place] Chest 1view Chest 1view Portable chest: The cardiomediastinal silhouette and pulmonary vasculature are within normal limits. The lungs and pleural spaces are clear. There are no acute osseous abnormalities. There is no significant change compared to 05/05/2016. 05/17 - [facility] DX DX /2015 - [place] IMPRESSION: Read by: Rizwan Barnhart MD Dictated Date/time: 05/17/16 16:37 Electronically Signed by: Rizwan Barnhart MD 05/17/16 16:38 FINAL REPORT No acute radiographic abnormality in the chest. [id number] CARDIAC Troponin-I null 0.00 - 05/06 ENZYMES 0.40 [place] HEMATOLOGY aPTT 50.1 s 22.9 - 05/06 MH 35.8 2016 [place] ELECTROLYTE AGAP 10.8 meq/L 10.0 - 05/06 S 20.0 [place] ELECTROLYTE CO2 28 meq/L 24 - 32 05/06 S [place] ELECTROLYTE Chloride Lvl 105 meq/L 95 - 109 05/06 S [place] ELECTROLYTE Calcium Lvl 8.7 mg/dL 8.5 - 10.5 05/06 S [place] ELECTROLYTE eGFR 103 05/06 Result Comment: The [...] is not recommended in the following populations: [address] Individuals with unstable creatinine concentrations, including [...] 123 mg/dL 70 - 99 05/06 S [place] ELECTROLYTE Creatinine 0.86 mg/dL 0.50 - 05/06 S Lvl 1.40 [place] ELECTROLYTE BUN 18 mg/dL 7 - 22 05/06 S [place] ELECTROLYTE Potassium 3.8 meq/L 3.5 - 5.1 05/06 S Lvl [place] ELECTROLYTE Sodium Lvl 140 meq/L 135 - 145 05/06 S [facility] HEMATOLOGY Microcyte 2+ None Seen 05/06 [facility] *ABN* (05/06/16 2:42 AM) HEMATOLOGY Eosinophils 0.2 K/CMM 0.0 - 0.5 05/06 # /2015 [place] HEMATOLOGY Monocytes # 0.8 K/CMM 0.0 - 0.8 05/06 [facility] HEMATOLOGY Monocytes 7.9 % 2.0 - 12.0 05/06 [place] HEMATOLOGY Lymphocytes 2.5 K/CMM 1.0 - 5.5 05/06 MH # /2016 [place] HEMATOLOGY Segs-Bands # 6.5 K/CMM 1.5 - 8.1 05/06 [place] HEMATOLOGY Basophils 0.4 % 0.0 - 1.0 05/06 MH [place] HEMATOLOGY Eosinophils 1.7 % 0.0 - 4.0 05/06 /2015 [place] HEMATOLOGY Lymphocytes 24.8 % 20.0 - 05/06 MH 40.0 [facility] HEMATOLOGY Segs 65.2 % 45.0 - 05/06 MH 75.0 [facility] HEMATOLOGY RBC X 10x6 5.11 M/CMM 4.70 - 05/06 MH 6.10 [facility] HEMATOLOGY Hct 36.2 % 42.0 - 05/06 MH 54.0 [place] HEMATOLOGY Hgb 11.8 g/dL 14.0 - 05/06 MH 18.0 [place] HEMATOLOGY Platelet 272 K/CMM 133 - 450 05/06 [facility] HEMATOLOGY RDW 17.1 % 11.5 - 05/06 14. [facility] HEMATOLOGY MPV 7.8 fL 7.4 - 10.4 05/06 /2015 [place] HEMATOLOGY WBC X 10x3 9.9 K/CMM 3.7 - 10.4 05/06 [place] HEMATOLOGY MCHC 32.5 g/dL 32.0 - 05/06 MH 36.0 [place] HEMATOLOGY MCH 23.0 pg 27.0 - 05/06 31.0 [facility] HEMATOLOGY MCV 70.8 fL 80.0 - 05/06 94.0 [facility] HEMATOLOGY PROTIME 13.4 s 12.0 - 05/06 14. [facility] HEMATOLOGY INR 1.00 0.85 - 05/06 MH 1.17 [facility] HEMATOLOGY aPTT 49.1 s 22.9 - 05/06 35.8 [facility] URINE AND UA Bacteria None Seen None Seen 05/06 STOOL [place] (05/05/16 10:09 PM) URINE AND UA Blood Negative Negative 05/06 STOOL [place] (05/05/16 10:09 PM) URINE AND UA RBC 0-2 /HPF 0 - 2 05/06 [facility] URINE AND UA WBC None Seen None Seen 05/06 STOOL [place] (05/05/16 10:09 PM) URINE AND UA Sq Epi None Seen Few 05/06 STOOL [place] (05/05/16 10:09 PM) URINE AND UA Leuk Est Negative Negative 05/06 STOOL [place] (05/05/16 10:09 PM) URINE AND UA 0.2 EU/dL 0.1 - 1.0 05/06 STOOL Urobilinogen [place] URINE AND UA Nitrite Negative Negative 05/06 STOOL [place] (05/05/16 10:09 PM) URINE AND UA Color Yellow Yellow 05/06 [facility] *NA* (05/05/16 10:09 PM) URINE AND UA Glucose Negative Negative 05/06 STOOL [place] (05/05/16 10:09 PM) URINE AND UA Bili Negative Negative 05/06 [place] *NA* (05/05/16 10:09 PM) URINE AND UA Ketones Negative Negative 05/06 [place] *NA* (05/05/16 10:09 PM) URINE AND UA Protein Negative Negative 05/06 STOOL [place] (05/05/16 10:09 PM) URINE AND UA pH 6.0 5.0 - 8.0 05/06 [facility] URINE AND UA Turbidity Clear Clear 05/06 [facility] (05/05/16 10:09 PM) URINE AND UA Spec Grav >=1.030 <=1.030 05/06 [facility] *ABN* (05/05/16 10:09 PM) BACTERIAL - MRSA by PCR Negative 05/06 SEROLOGY [facility] (05/05/16 10:06 PM) HEMATOLOGY Basophils # 0.1 K/CMM 0.0 - 0.2 05/06 [place] HEMATOLOGY Microcyte 2+ None Seen 05/06 [place] *ABN* (05/05/16 9:38 PM) HEMATOLOGY Eosinophils 1.4 % 0.0 - 4.0 05/06 [place] HEMATOLOGY Basophils 0.7 % 0.0 - 1.0 05/06 [facility] HEMATOLOGY Segs-Bands # 7.1 K/CMM 1.5 - 8.1 05/06 /2015 [place] HEMATOLOGY Lymphocytes 24.8 % 20.0 - 05/06 MH 40.0 /2015 [place] HEMATOLOGY Monocytes 7.9 % 2.0 - 12.0 05/06 /2015 [place] HEMATOLOGY Monocytes # 0.9 K/CMM 0.0 - 0.8 05/06 /2015 [place] HEMATOLOGY Eosinophils 0.2 K/CMM 0.0 - 0.5 05/06 MH # /2015 [place] HEMATOLOGY Lymphocytes 2.7 K/CMM 1.0 - 5.5 05/06 MH # /2015 [place] HEMATOLOGY Segs 65.2 % 45.0 - 05/06 MH 75.0 /2015 [place] HEMATOLOGY MCV 69.7 fL 80.0 - 05/06 MH 94.0 [facility] HEMATOLOGY MCH 23.3 pg 27.0 - 05/06 MH 31.0 [place] HEMATOLOGY Hgb 12.2 g/dL 14.0 - 05/06 MH 18.0 [facility] HEMATOLOGY Hct 36.5 % 42.0 - 05/06 MH 54.0 [place] HEMATOLOGY MCHC 33.4 g/dL 32.0 - 05/06 MH 36.0 [place] HEMATOLOGY Platelet 276 K/CMM 133 - 450 05/06 /2015 [place] HEMATOLOGY MPV 7.2 fL 7.4 - 10.4 05/06 /2015 [facility] HEMATOLOGY RDW 17.5 % 11.5 - 05/06 MH 14. [facility] HEMATOLOGY WBC X 10x3 11.0 K/CMM 3.7 - 10.4 05/06 [place] HEMATOLOGY RBC X 10x6 5.24 M/CMM 4.70 - 05/06 MH 6.10 [facility] HEMATOLOGY INR 1.05 0.85 - 05/06 MH 1.17 [facility] HEMATOLOGY PROTIME 13.9 s 12.0 - 05/06 14. [facility] HEMATOLOGY aPTT 35.3 s 22.9 - 05/06 MH 35.8 [facility] CARDIAC CK-MB INDEX 1.0 0.0 - 2.5 05/05 ENZYMES /2015 [place] CARDIAC CK MB 0.8 ng/mL 0.5 - 3.6 05/05 ENZYMES /2015 [place] CARDIAC Total CK 80 unit/L 12 - 191 05/05 ENZYMES [place] CARDIAC Troponin-I null 0.00 - 05/05 ENZYMES 0.40 [facility] CHEM PANEL Alk Phos 133 unit/L 39 - 136 05/05 [facility] CHEM PANEL Glucose Lvl 137 mg/dL 70 - 99 05/05 [facility] CHEM PANEL BUN 17 mg/dL 7 - 22 05/05 [facility] CHEM PANEL Creatinine 1.01 mg/dL 0.50 - 05/05 MH Lvl 1.40 [facility] CHEM PANEL Sodium Lvl 139 meq/L 135 - 145 05/05 [facility] CHEM PANEL ALANINE 34 unit/L 0 - 65 05/05 AMINOTRANSFE [place] RASE CHEM PANEL Albumin Lvl 3.3 g/dL 3.5 - 5.0 05/05 [facility] CHEM PANEL Chloride Lvl 105 meq/L 95 - 109 05/05 [place] CHEM PANEL eGFR 88 05/05 Result Comment: [...] is not recommended in the following populations: [address] Individuals with unstable creatinine concentrations, including [...] Total 0.4 mg/dL 0.2 - 1.3 05/05 [facility] CHEM PANEL Calcium Lvl 8.6 mg/dL 8.5 - 10.5 05/05 [facility] CHEM PANEL Potassium 3.7 meq/L 3.5 - 5.1 05/05 Lvl [place] CHEM PANEL CO2 28 meq/L 24 - 32 05/05 [facility] CHEM PANEL Total 7.8 g/dL 6.4 - 8.4 05/05 [facility] CHEM PANEL ASPARTATE 16 unit/L 0 - 37 05/05 [place] CHEM PANEL AGAP 9.7 meq/L 10.0 - 05/05 MH 20.0 [facility] CHEM PANEL B/C Ratio 17 6 - 25 05/05 [facility] CHEM PANEL Globulin 4.5 g/dL 2.7 - 4.2 05/05 [place] CHEM PANEL A/G Ratio 0.7 0.7 - 1.6 05/05 [place] HEMATOLOGY Monocytes # 0.8 K/CMM 0.0 - 0.8 05/05 [place] HEMATOLOGY Eosinophils 0.1 K/CMM 0.0 - 0.5 05/05 # [facility] HEMATOLOGY Basophils # 0.1 K/CMM 0.0 - 0.2 05/05 [place] HEMATOLOGY Microcyte 2+ None Seen 05/05 [place] *ABN* (05/05/16 5:11 PM) HEMATOLOGY Monocytes 7.5 % 2.0 - 12.0 05/05 [place] HEMATOLOGY Eosinophils 1.1 % 0.0 - 4.0 05/05 [place] HEMATOLOGY Basophils 0.7 % 0.0 - 1.0 05/05 [place] HEMATOLOGY Segs-Bands # 7.5 K/CMM 1.5 - 8.1 05/05 [place] HEMATOLOGY Lymphocytes 2.1 K/CMM 1.0 - 5.5 05/05 [place] HEMATOLOGY Lymphocytes 19.9 % 20.0 - 05/05 MH 40.0 [place] HEMATOLOGY Segs 70.8 % 45.0 - 05/05 MH 75.0 [place] HEMATOLOGY Platelet 306 K/CMM 133 - 450 05/05 [place] HEMATOLOGY MCHC 33.6 g/dL 32.0 - 05/05 MH 36.0 [place] HEMATOLOGY MPV 7.3 fL 7.4 - 10.4 05/05 [place] HEMATOLOGY RDW 16.9 % 11.5 - 05/05 MH 14. [place] HEMATOLOGY MCV 69.5 fL 80.0 - 05/05 MH 94.0 [place] HEMATOLOGY MCH 23.4 pg 27.0 - 05/05 MH 31.0 [place] HEMATOLOGY Hct 37.4 % 42.0 - 05/05 MH 54.0 [place] HEMATOLOGY Hgb 12.6 g/dL 14.0 - 05/05 MH 18.0 [place] HEMATOLOGY WBC X 10x3 10.6 K/CMM 3.7 - 10.4 05/05 [place] HEMATOLOGY RBC X 10x6 5.39 M/CMM 4.70 - 05/05 MH 6.10 [place] Chest 1view Chest 1view EXAM: Chest 1view DX 05/05 - [facility] DX DX /2015 - [place] DATE: 05/05/2016 4:55 PM [employer] INDICATION: Chest pain Read by: Tito Farnsworth MD Dictated Date/time: 05/05/16 17:34 COMPARISON: 03/05/2016. Electronically Signed by: Tito Farnsworth MD 05/05/16 17:34 FINAL REPORT IMPRESSION: Stable mildly enlarged cardiac silhouette. Atherosclerotic thoracic aorta. No focal consolidation, significant pleural effusion or pneumothorax. SL: [id number] CHEM PANEL Globulin 4.2 g/dL 2.7 - 4.2 04/25 [place] CHEM PANEL B/C Ratio 19 6 - 25 04/25 [place] CHEM PANEL AGAP 9.9 meq/L 10.0 - 04/25 20.0 [place] CHEM PANEL A/G Ratio 0.8 0.7 - 1.6 04/25 [place] CHEM PANEL eGFR 100 04/25 Result Comment: [...] is not recommended in the following populations: [address] Individuals with unstable creatinine concentrations, including [...] Phos 128 unit/L 39 - 136 04/25 [place] CHEM PANEL Albumin Lvl 3.4 g/dL 3.5 - 5.0 04/25 [place] CHEM PANEL ALANINE 30 unit/L 0 - 65 04/25 AMINOTRANSFE [place] RASE CHEM PANEL Total 7.6 g/dL 6.4 - 8.4 04/25 Protein [place] CHEM PANEL Bili Total 0.3 mg/dL 0.2 - 1.3 04/25 [place] CHEM PANEL ASPARTATE 14 unit/L 0 - 37 04/25 TRANSAMINASE [place] CHEM PANEL CO2 26 meq/L 24 - 32 04/25 [place] CHEM PANEL Calcium Lvl 8.7 mg/dL 8.5 - 10.5 04/25 [place] CHEM PANEL Chloride Lvl 104 meq/L 95 - 109 04/25 [place] CHEM PANEL Potassium 3.9 meq/L 3.5 - 5.1 04/25 MH Lvl /2015 [place] CHEM PANEL Glucose Lvl 221 mg/dL 70 - 99 04/25 [place] CHEM PANEL Sodium Lvl 136 meq/L 135 - 145 04/25 [place] CHEM PANEL Creatinine 0.91 mg/dL 0.50 - 04/25 MH Lvl 1.40 [place] CHEM PANEL BUN 17 mg/dL 7 - 22 04/25 [place] HEMATOLOGY RBC X 10x6 5.40 M/CMM 4.70 - 04/25 MH 6.10 [place] HEMATOLOGY WBC X 10x3 10.3 K/CMM 3.7 - 10.4 04/25 [place] HEMATOLOGY Hgb 12.9 g/dL 14.0 - 04/25 MH 18.0 [place] HEMATOLOGY MPV 7.2 fL 7.4 - 10.4 04/25 [place] HEMATOLOGY RDW 16.8 % 11.5 - 04/25 MH 14. [place] HEMATOLOGY Platelet 313 K/CMM 133 - 450 04/25 [place] HEMATOLOGY MCH 23.8 pg 27.0 - 04/25 MH 31.0 [place] HEMATOLOGY MCHC 34.0 g/dL 32.0 - 04/25 36.0 /2015 [place] HEMATOLOGY Hct 37.9 % 42.0 - 04/25 MH 54.0 /2015 [place] HEMATOLOGY MCV 70.1 fL 80.0 - 04/25 94.0 /2015 [place] HEMATOLOGY Lymphocytes 2.3 K/CMM 1.0 - 5.5 04/25 MH # /2016 [place] HEMATOLOGY Eosinophils 0.1 K/CMM 0.0 - 0.5 04/25 # /2015 [place] HEMATOLOGY Monocytes # 0.6 K/CMM 0.0 - 0.8 04/25 [place] HEMATOLOGY Basophils # 0.1 K/CMM 0.0 - 0.2 04/25 [place] HEMATOLOGY Microcyte 2+ None Seen 04/25 [place] *ABN* (04/25/16 6:17 PM) HEMATOLOGY Segs 69.2 % 45.0 - 04/25 MH 75.0 /2015 [place] HEMATOLOGY Segs-Bands # 7.1 K/CMM 1.5 - 8.1 04/25 [place] HEMATOLOGY Monocytes 6.1 % 2.0 - 12.0 04/25 [place] HEMATOLOGY Basophils 1.1 % 0.0 - 1.0 04/25 [place] HEMATOLOGY Eosinophils 1.1 % 0.0 - 4.0 04/25 [place] HEMATOLOGY Lymphocytes 22.5 % 20.0 - 04/25 40.0 /2016 [place] URINE AND UA WBC 0-2 /HPF None Seen 04/25 STOOL /HPF [place] URINE AND UA RBC 0-2 /HPF 0 - 2 04/25 STOOL [place] URINE AND UA Bacteria Occasional None Seen 04/25 STOOL /HPF /HPF [place] URINE AND UA Leuk Est Negative Negative 04/25 STOOL [place] (04/25/16 6:17 PM) URINE AND UA Sq Epi Occasional Few /LPF 04/25 STOOL /LPF /2015 [place] URINE AND UA pH 6.0 5.0 - 8.0 04/25 [place] URINE AND UA Protein Negative Negative 04/25 STOOL [place] (04/25/16 6:17 PM) URINE AND UA Glucose 250 mg/dL Negative 04/25 STOOL mg/dL /2015 [place] URINE AND UA Ketones Negative Negative 04/25 STOOL [place] *NA* (04/25/16 6:17 PM) URINE AND UA Bili Negative Negative 04/25 [place] *NA* (04/25/16 6:17 PM) URINE AND UA Blood Negative Negative 04/25 [place] (04/25/16 6:17 PM) URINE AND UA 0.2 EU/dL 0.1 - 1.0 04/25 [facility] Urobilinogen [place] URINE AND UA Nitrite Negative Negative 04/25 STOOL [place] (04/25/16 6:17 PM) URINE AND UA Color Yellow Yellow 04/25 [place] *NA* (04/25/16 6:17 PM) URINE AND UA Turbidity Clear Clear 04/25 [place] (04/25/16 6:17 PM) URINE AND UA Spec Grav 1.020 <=1.030 04/25 [facility] [place] Renal Stone Renal Stone EXAM: CT ABDOMEN AND PELVIS WITHOUT CONTRAST [facility] CT [facility] DATE: 04/25/2016 6:07 PM CDT [...] provided. IV contrast: None. CT Radiation Dose: OAW=1090.51 mGy-cm FINDINGS: Evaluation of the solid organs [...] infrarenal abdominal aorta without aneurysmal dilatation. SL: [id number] CARDIAC Troponin-I null 0.00 - 03/05 MH ENZYMES 0.40 /2015 [place] CARDIAC CK MB 0.8 ng/mL 0.5 - 3.6 03/05 MH ENZYMES /2016 [place] CARDIAC Total CK 60 unit/L - 191 03/05 MH ENZYMES /2016 [place] CARDIAC CK-MB INDEX 1.3 0.0 - 2.5 03/05 MH ENZYMES /2016 [place] CARDIAC Troponin-I null 0.00 - 03/05 MH ENZYMES 0.40 2016 [place] CARDIAC Total CK 66 unit/L - 191 03/05 MH ENZYMES /2016 [place] CARDIAC CK MB 0.6 ng/mL 0.5 - 3.6 03/05 MH ENZYMES /2016 [place] CARDIAC CK-MB INDEX 0.9 0.0 - 2.5 03/05 MH ENZYMES /2016 [place] CHEM PANEL eGFR 103 03/05 Result Comment: [...] is not recommended in the following populations: [address] Individuals with unstable creatinine concentrations, including [...] 12.0 meq/L 10.0 - 09 MH 20.0 [place] CHEM PANEL Globulin 4.4 g/dL 2.7 - 4.2 03/05 [place] CHEM PANEL B/C Ratio 14 6 - 25 03/05 [place] CHEM PANEL A/G Ratio 0.8 0.7 - 1.6 03/05 [place] CHEM PANEL Calcium Lvl 8.8 mg/dL 8.5 - 10.5 03/05 [place] CHEM PANEL Bili Total 0.6 mg/dL 0.2 - 1.3 03/05 [place] CHEM PANEL Total 7.8 g/dL 6.4 - 8.4 03/05 Protein [place] CHEM PANEL ASPARTATE 16 unit/L 0 - 37 03/05 [place] CHEM PANEL Alk Phos 128 unit/L 39 - 136 03/05 [place] CHEM PANEL Glucose Lvl 97 mg/dL 70 - 99 03/05 [place] CHEM PANEL Creatinine 0.88 mg/dL 0.50 - 03/05 MH Lvl 1.40 [place] CHEM PANEL BUN 12 mg/dL 7 - 22 03/05 [place] CHEM PANEL Sodium Lvl 138 meq/L 135 - 145 03/05 [place] CHEM PANEL ALANINE 32 unit/L 0 - 65 03/05 AMINOTRANS [place] RASE CHEM PANEL Albumin Lvl 3.4 g/dL 3.5 - 5.0 03/05 [place] CHEM PANEL Potassium 4.0 meq/L 3.5 - 5.1 03/05 MH Lvl [place] CHEM PANEL Chloride Lvl 105 meq/L 95 - 109 03/05 [place] CHEM PANEL CO2 25 meq/L 24 - 32 03/05 [place] HEMATOLOGY Platelet 294 K/CMM 133 - 450 03/05 [place] HEMATOLOGY MPV 7.4 fL 7.4 - 10.4 03/05 [place] HEMATOLOGY WBC X 10x3 10.0 K/CMM 3.7 - 10.4 03/05 [place] HEMATOLOGY RDW 16.6 % 11.5 - 03/05 MH 14.5 [place] HEMATOLOGY MCH 24.1 pg 27.0 - 03/05 MH 31.0 [place] HEMATOLOGY MCHC 33.4 g/dL 32.0 - 03/05 MH 36.0 [place] HEMATOLOGY MCV 72.2 fL 80.0 - 03/05 MH 94.0 [place] HEMATOLOGY Hct 38.1 % 42.0 - 03/05 MH 54.0 [place] HEMATOLOGY RBC X 10x6 5.28 M/CMM 4.70 - 03/05 MH 6.10 [place] HEMATOLOGY Hgb 12.7 g/dL 14.0 - 03/05 MH 18.0 [place] HEMATOLOGY Microcyte 1+ None Seen 03/05 [place] *ABN* (03/05/16 7:30 AM) HEMATOLOGY Basophils # 0.1 K/CMM 0.0 - 0.2 03/05 [place] HEMATOLOGY Monocytes # 0.7 K/CMM 0.0 - 0.8 03/05 [place] HEMATOLOGY Eosinophils 0.1 K/CMM 0.0 - 0.5 03/05 MH # /2015 [place] HEMATOLOGY Segs-Bands # 7.5 K/CMM 1.5 - 8.1 03/05 [place] HEMATOLOGY Lymphocytes 1.6 K/CMM 1.0 - 5.5 03/05 # /2015 [place] HEMATOLOGY Eosinophils 1.2 % 0.0 - 4.0 03/05 [place] HEMATOLOGY Basophils 0.6 % 0.0 - 1.0 03/05 [place] HEMATOLOGY Segs 75.1 % 45.0 - 03/05 MH 75.0 [place] HEMATOLOGY Monocytes 7.4 % 2.0 - 12.0 03/05 [place] HEMATOLOGY Lymphocytes 15.7 % 20.0 - 03/05 40.0 [place] Chest 1view Chest 1view Patient Name: ANNABEL MCCONNELL 03/05 - [facility] /[facility] - [place] : 1970; Age: 45 years y/o Male MR: [id number] Read by: Jason Dozier MD Dictated Date/time: [...] unremarkable. IMPRESSION: 1. No active disease. SL: [id number] URINE AND UA RBC 0-2 /HPF 0 - 2 03/02 [place] URINE AND UA Sq Epi None Seen Few 03/02 [place] (03/02/16 8:22 AM) URINE AND UA WBC None Seen None Seen 03/02 [place] (03/02/16 8:22 AM) URINE AND UA pH 6.0 5.0 - 8.0 03/02 [place] URINE AND UA Protein Negative Negative 03/02 STOOL mg/dL mg/dL [place] URINE AND UA Glucose Negative Negative 03/02 STOOL mg/dL mg/dL [place] URINE AND UA Ketones Negative Negative 03/02 STOOL mg/dL mg/dL [place] URINE AND UA Bili Negative Negative 03/02 [place] *NA* (03/02/16 8:22 AM) URINE AND UA Color Yellow Yellow 03/02 [place] *NA* (03/02/16 8:22 AM) URINE AND UA Turbidity Clear Clear 03/02 [place] (03/02/16 8:22 AM) URINE AND UA Spec Grav 1.015 <=1.030 03/02 [place] URINE AND UA Blood Negative Negative 03/02 [place] (03/02/16 8:22 AM) URINE AND UA 0.2 EU/dL 0.1 - 1.0 03/02 STOOL Urobilinogen [place] URINE AND UA Nitrite Negative Negative 03/02 [place] (03/02/16 8:22 AM) URINE AND UA Leuk Est Negative Negative 03/02 STOOL [place] (03/02/16 8:22 AM) CHEM PANEL A/G Ratio 0.7 0.7 - 1.6 03/02 [place] CHEM PANEL Globulin 4.6 g/dL 2.7 - 4.2 03/02 [place] CHEM PANEL B/C Ratio 16 6 - 25 03/02 [place] CHEM PANEL AGAP 10.4 meq/L 10.0 - 03/02 MH 20.0 [place] CHEM PANEL Total 8.0 g/dL 6.4 - 8.4 03/02 Protein [place] CHEM PANEL Bili Total 0.3 mg/dL 0.2 - 1.3 03/02 [place] CHEM PANEL Calcium Lvl 8.7 mg/dL 8.5 - 10.5 03/02 [place] CHEM PANEL CO2 26 meq/L 24 - 32 03/02 [place] CHEM PANEL Chloride Lvl 106 meq/L 95 - 109 03/02 [place] CHEM PANEL Sodium Lvl 138 meq/L 135 - 145 03/02 [place] CHEM PANEL Potassium 4.4 meq/L 3.5 - 5.1 03/02 Lv [place] CHEM PANEL eGFR 83 03/02 Result Comment: [...] is not recommended in the following populations: [place] 3m2 Individuals with unstable creatinine concentrations, including [...] ASPARTATE 13 unit/L 0 - 37 03/02 [place] CHEM PANEL Creatinine 1.07 mg/dL 0.50 - 03/02 MH Lvl 1.40 /2015 [place] CHEM PANEL BUN 17 mg/dL 7 - 22 03/02 [place] CHEM PANEL Glucose Lvl 106 mg/dL 70 - 99 03/02 [place] CHEM PANEL Alk Phos 127 unit/L 39 - 136 03/02 [place] CHEM PANEL Albumin Lvl 3.4 g/dL 3.5 - 5.0 03/02 [place] CHEM PANEL ALANINE 33 unit/L 0 - 65 03/02 AMINOTRANSFE /2015 [place] RASE CHEM PANEL Lipase Lvl 164 unit/L 73 - 393 03/02 [place] HEMATOLOGY Basophils # 0.1 K/CMM 0.0 - 0.2 03/02 [place] HEMATOLOGY Microcyte 1+ None Seen 03/02 [place] *ABN* (03/02/16 5:41 AM) HEMATOLOGY Monocytes 6.7 % 2.0 - 12.0 03/02 [place] HEMATOLOGY Lymphocytes 21.9 % 20.0 - 03/02 MH 40.0 [place] HEMATOLOGY Eosinophils 1.5 % 0.0 - 4.0 03/02 [place] HEMATOLOGY Segs 69.1 % 45.0 - 03/02 75.0 [place] HEMATOLOGY Monocytes # 0.8 K/CMM 0.0 - 0.8 03/02 [place] HEMATOLOGY Lymphocytes 2.6 K/CMM 1.0 - 5.5 03/02 MH # [place] HEMATOLOGY Eosinophils 0.2 K/CMM 0.0 - 0.5 03/02 MH [place] HEMATOLOGY Segs-Bands # 8.1 K/CMM 1.5 - 8.1 03/02 [place] HEMATOLOGY Basophils 0.8 % 0.0 - 1.0 03/02 [place] HEMATOLOGY WBC X 10x3 11.8 K/CMM 3.7 - 10.4 03/02 [place] HEMATOLOGY Hct 37.4 % 42.0 - 03/02 MH 54.0 [place] HEMATOLOGY RBC X 10x6 5.18 M/CMM 4.70 - 03/02 MH 6.10 [place] HEMATOLOGY Hgb 12.5 g/dL 14.0 - 03/02 MH 18.0 /2015 [place] HEMATOLOGY MCH 24.1 pg 27.0 - 03/02 MH 31.0 /2015 [place] HEMATOLOGY RDW 16.7 % 11.5 - 03/02 MH 14.5 /2015 [place] HEMATOLOGY MCHC 33.4 g/dL 32.0 - 03/02 MH 36.0 /2015 [place] HEMATOLOGY MCV 72.1 fL 80.0 - 03/02 94.0 /2015 [place] HEMATOLOGY MPV 7.7 fL 7.4 - 10.4 03/02 [place] HEMATOLOGY Platelet 303 K/CMM 133 - 450 03/02 [place] Chest/Abdom Chest/Abdome CT THORAX/ABDOMEN/PELVIS WITH IV CONTRAST WITH SAGITTAL AND CORONAL REFORMATTED IMAGES 03/02 - [facility] en/Pelvis w n/Pelvis w - [place] IV contrast IV contrast CT CT HISTORY: [...] colonic diverticulosis, small abdominal aortic aneurysm. SL: [id number] Abdomen RUQ Abdomen RUQ ULTRASOUND ABDOMEN RIGHT UPPER QUADRANT 03/02 - [facility] US US /2015 - [place] HISTORY: Abdominal pain, acute; right flank pain [...] steatosis. 2. Otherwise normal abdominal ultrasound. SL: [id number] Renal Stone Renal Stone Patient Name: ANNABEL MCCONNELL 03/02 [facility] CT CT /2015 [facility] : 1970; Age: 45 years y/o Male MR: [id number] Read by: John Paul Carrero MD Dictated Date/time: 03/02/16 05:55 Electronically Signed by: John Paul Carrero MD 03/02/16 05:59 FINAL REPORT Study: Renal Stone CT 03/02/2016 5:25 AM CDT Ordering Physician: Clinical Indication: Abdominal pain, acute; Comparison: None TECHNIQUE: Noncontrasted helical imaging was performed from the kidneys through the symphysis as a renal stone protocol. Multiplanar reformations are available. CT Radiation Dose: QIO=[id number] mGy-cm FINDINGS: This examination is limited for [...] - 5.1 02/18 MH S Lvl /2015 [place] ELECTROLYTE Chloride Lvl 104 meq/L 95 - 109 02/18 S [place] ELECTROLYTE Sodium Lvl 136 meq/L 135 - 145 02/18 MH S /2015 [place] ELECTROLYTE Glucose Lvl 147 mg/dL 70 - 99 02/18 MH S [place] ELECTROLYTE Creatinine 0.88 mg/dL 0.50 - 02/18 MH S Lvl 1.40 [place] ELECTROLYTE BUN 10 mg/dL 7 - 22 02/18 MH S /2015 [place] ELECTROLYTE eGFR 103 02/18 Result Comment: The [...] is not recommended in the following populations: [place] 3m2 Individuals with unstable creatinine concentrations, including [...] 8.5 - 10.5 02/18 MH S /2015 [place] ELECTROLYTE CO2 24 meq/L 24 - 32 02/18 MH S /2015 [place] ELECTROLYTE AGAP 12.4 meq/L 10.0 - 02/18 MH S 20.0 [place] HEMATOLOGY RDW 16.3 % 11.5 - 02/18 MH 14. [place] HEMATOLOGY Platelet 273 K/CMM 133 - 450 02/18 [place] HEMATOLOGY MPV 7.5 fL 7.4 - 10.4 02/18 [place] HEMATOLOGY Hgb 12.8 g/dL 14.0 - 02/18 MH 18.0 [place] HEMATOLOGY RBC X 10x6 5.31 M/CMM 4.70 - 02/18 MH 6.10 [place] HEMATOLOGY WBC X 10x3 11.1 K/CMM 3.7 - 10.4 02/18 [place] HEMATOLOGY MCV 72.6 fL 80.0 - 02/18 MH 94.0 [place] HEMATOLOGY Hct 38.6 % 42.0 - 02/18 MH 54.0 [place] HEMATOLOGY MCH 24.1 pg 27.0 - 02/18 MH 31.0 [place] HEMATOLOGY MCHC 33.1 g/dL 32.0 - 02/18 MH 36.0 [place] CARDIAC Troponin-I null 0.00 - 02/17 MH ENZYMES 0.40 [place] HEMATOLOGY Monocytes 7.9 % 2.0 - 12.0 02/17 [place] HEMATOLOGY Lymphocytes 20.8 % 20.0 - 02/17 MH 40.0 [place] HEMATOLOGY Segs 69.1 % 45.0 - 02/17 MH 75.0 [place] HEMATOLOGY Lymphocytes 2.2 K/CMM 1.0 - 5.5 02/17 MH /2015 [place] HEMATOLOGY Monocytes # 0.8 K/CMM 0.0 - 0.8 02/17 [place] HEMATOLOGY Eosinophils 1.6 % 0.0 - 4.0 02/17 [place] HEMATOLOGY Segs-Bands # 7.5 K/CMM 1.5 - 8.1 02/17 [place] HEMATOLOGY Basophils 0.6 % 0.0 - 1.0 02/17 [place] HEMATOLOGY Microcyte 1+ None Seen 02/17 [place] *ABN* (02/18/16 5:20 AM) HEMATOLOGY Basophils # 0.1 K/CMM 0.0 - 0.2 02/17 [place] HEMATOLOGY Eosinophils 0.2 K/CMM 0.0 - 0.5 02/17 MH # /2015 [place] HEMATOLOGY RBC X 10x6 4.91 M/CMM 4.70 - 02/17 MH 6.10 [place] HEMATOLOGY WBC X 10x3 10.8 K/CMM 3.7 - 10.4 02/17 [place] HEMATOLOGY MCH 24.1 pg 27.0 - 02/17 MH 31.0 [place] HEMATOLOGY MCV 73.1 fL 80.0 - 02/17 MH 94.0 [place] HEMATOLOGY Hct 35.9 % 42.0 - 02/17 MH 54.0 [place] HEMATOLOGY Hgb 11.8 g/dL 14.0 - 02/17 MH 18.0 [place] HEMATOLOGY MPV 7.4 fL 7.4 - 10.4 02/17 [place] HEMATOLOGY RDW 16.3 % 11.5 - 02/17 14.5 [place] HEMATOLOGY MCHC 33.0 g/dL 32.0 - 02/17 MH 36.0 [place] HEMATOLOGY Platelet 270 K/CMM 133 - 450 02/17 [place] CARDIAC Troponin-I null 0.00 - 02/16 ENZYMES 0. [place] CHEM PANEL Procalcitoni null 0.00 - 02/16 n Lvl 0.10 [place] CARDIAC Troponin-I null 0.00 - 02/16 ENZYMES 0.40 [place] URINE AND UA Bacteria None Seen None Seen 02/16 STOOL /2015 [place] (02/17/16 6:27 AM) URINE AND UA RBC None Seen 0 - 2 02/16 STOOL /2015 [place] (02/17/16 6:27 AM) URINE AND UA Mucus Few /LPF None Seen 02/16 STOOL /LPF /2015 [place] URINE AND UA Sq Epi Rare /LPF Few /LPF 02/16 STOOL [place] URINE AND UA WBC 0-2 /HPF None Seen 02/16 STOOL /HPF /2015 [place] URINE AND UA Leuk Est Negative Negative 02/16 STOOL /2015 [place] (02/17/16 6:27 AM) URINE AND UA 0.2 EU/dL 0.1 - 1.0 02/16 STOOL Urobilinogen [place] URINE AND UA Nitrite Negative Negative 02/16 STOOL [place] (02/17/16 6:27 AM) URINE AND UA Spec Grav 1.025 <=1.030 02/16 STOOL [place] URINE AND UA Turbidity Clear Clear 02/16 STOOL [place] (02/17/16 6:27 AM) URINE AND UA Color Yellow Yellow 02/16 STOOL [place] *NA* (02/17/16 6:27 AM) URINE AND UA Bili Negative Negative 02/16 STOOL [place] *NA* (02/17/16 6:27 AM) URINE AND UA Blood Negative Negative 02/16 STOOL [place] (02/17/16 6:27 AM) URINE AND UA Ketones Negative Negative 02/16 STOOL mg/dL mg/dL [place] URINE AND UA Glucose Negative Negative 02/16 STOOL mg/dL mg/dL [place] URINE AND UA pH 6.0 5.0 - 8.0 02/16 STOOL [place] URINE AND UA Protein Negative Negative 02/16 STOOL mg/dL mg/dL [place] CARDIAC CK-MB INDEX 1.6 0.0 - 2.5 02/16 ENZYMES [place] CARDIAC CK MB 0.9 ng/mL 0.5 - 3.6 02/16 ENZYMES [place] CARDIAC Total CK 58 unit/L 12 - 191 02/16 ENZYMES [place] CHEM PANEL eGFR 93 02/16 Result Comment: [...] is not recommended in the following populations: [place] 3m2 Individuals with unstable creatinine concentrations, including [...] 33 unit/L 0 - 65 02/16 AMINOTRANS [place] RASE CHEM PANEL CO2 23 meq/L 24 - 32 02/16 [place] CHEM PANEL Calcium Lvl 8.8 mg/dL 8.5 - 10.5 02/16 [place] CHEM PANEL Potassium 4.0 meq/L 3.5 - 5.1 02/16 MH Lvl [place] CHEM PANEL Chloride Lvl 105 meq/L 95 - 109 02/16 [place] CHEM PANEL Creatinine 0.97 mg/dL 0.50 - 02/16 MH Lvl 1.40 [place] CHEM PANEL Glucose Lvl 103 mg/dL 70 - 99 02/16 [place] CHEM PANEL BUN 11 mg/dL 7 - 22 02/16 [place] CHEM PANEL Albumin Lvl 3.4 g/dL 3.5 - 5.0 02/16 [place] CHEM PANEL Alk Phos 128 unit/L 39 - 136 02/16 [place] CHEM PANEL Bili Total 0.5 mg/dL 0.2 - 1.3 02/16 [place] CHEM PANEL Sodium Lvl 139 meq/L 135 - 145 02/16 [place] CHEM PANEL AGAP 15.0 meq/L 10.0 - 02/16 MH 20.0 [place] CHEM PANEL B/C Ratio 11 6 - 25 02/16 [place] CHEM PANEL Total 8.0 g/dL 6.4 - 8.4 02/16 [place] CHEM PANEL ASPARTATE 16 unit/L 0 - 37 02/16 [place] CHEM PANEL Globulin 4.6 g/dL 2.7 - 4.2 02/16 [place] CHEM PANEL A/G Ratio 0.7 0.7 - 1.6 02/16 [place] HEMATOLOGY Microcyte 1+ None Seen 02/16 [place] *ABN* (02/17/16 5:50 AM) HEMATOLOGY Basophils # 0.1 K/CMM 0.0 - 0.2 02/16 [place] HEMATOLOGY Basophils 0.5 % 0.0 - 1.0 02/16 [place] HEMATOLOGY Lymphocytes 2.4 K/CMM 1.0 - 5.5 02/16 MH # /2015 [place] HEMATOLOGY Monocytes # 0.8 K/CMM 0.0 - 0.8 02/16 [place] HEMATOLOGY Eosinophils 0.1 K/CMM 0.0 - 0.5 02/16 MH # /2015 [place] HEMATOLOGY Segs-Bands # 8.7 K/CMM 1.5 - 8.1 02/16 [place] HEMATOLOGY Eosinophils 1.2 % 0.0 - 4.0 02/16 [place] HEMATOLOGY Segs 72.1 % 45.0 - 02/16 MH 75.0 [place] [facility] Lymphocytes 19.8 % 20.0 - 02/16 MH 40.0 [place] [facility] Monocytes 6.4 % 2.0 - 12.0 02/16 [place] [facility] Platelet 327 K/CMM 133 - 450 02/16 [place] [facility] MCH 24.1 pg 27.0 - 02/16 31.0 [place] [facility] MCHC 33.3 g/dL 32.0 - 02/16 36.0 [place] [facility] MPV 7.6 fL 7.4 - 10.4 02/16 [place] [facility] RDW 16.3 % 11.5 - 02/16 14.5 [place] [facility] Hgb 13.1 g/dL 14.0 - 02/16 18.0 [place] [facility] Hct 39.5 % 42.0 - 02/16 54.0 [place] [facility] WBC X 10x3 12.0 K/CMM 3.7 - 10.4 02/16 [place] [facility] RBC X 10x6 5.45 M/CMM 4.70 - 02/16 MH 6.10 [place] [facility] MCV 72.6 fL 80.0 - 02/16 94.0 [place] [facility] Renal Stone Patient Name: ANNABEL MCCONNELL 02/16 - [facility] - [place] : 1970; Age: 45 years Male MR: [id number] Read by: Sundar Jeffrey MD Dictated Date/time: 02/17/16 05:53 Electronically Signed by: Sundar Jeffrey MD 02/17/16 06:01 FINAL REPORT Study: Renal Stone CT 02/17/2016 5:26 AM CDT Clinical Indication: Flank Pain. AK. STATED RT. FLANK PAIN AND UPPER CHEST [...] small left renal cyst. 7. Cardiomegaly. SL: [id number] Chest 1view Chest 1view Patient Name: ANNABEL MCCONNELL 02/16 [facility] DX DX [place] : 1970; Age: 45 years y/o Male MR: [id number] Read by: Jaun Guillermo MD Dictated Date/time: [...] Respitory Rate 18 05/17/[address] [facility] Temperature Oral (F) 98.1 F 05/17/[address] [facility] Heart Rate 72 05/17/[address] [facility] Systolic (mm Hg) 116 05/17/[address] [facility] Diastolic (mm Hg) 76 05/17/[address] [facility] Weight 128.636 05/17/[address] [facility] Temperature Oral (F) 97.6 F 05/17/[address] [facility] Respitory Rate 16 05/17/[address] [facility] Heart Rate 79 05/17/[address] [facility] Systolic (mm Hg) 100 05/17/[address] [facility] Diastolic (mm Hg) 69 05/17/[address] [facility] Respitory Rate 16 05/06/[address] [facility] Systolic (mm Hg) 134 05/06/[address] [facility] Diastolic (mm Hg) 84 05/06/[address] [facility] Heart Rate 61 05/06/[address] [facility] Temperature Oral (F) 97.9 F 05/06/[address] [facility] Respitory Rate 14 05/06/[address] [facility] Temperature Oral (F) 97.4 F 05/06/[address] [facility] Systolic (mm Hg) 117 05/06/[address] [facility] Diastolic (mm Hg) 77 05/06/[address] [facility] Respitory Rate 18 05/06/[address] [facility] Heart Rate 56 05/06/[address] [facility] Systolic (mm Hg) 120 05/06/[address] [facility] Diastolic (mm Hg) 77 05/06/[address] [facility] Heart Rate 62 05/06/[address] [facility] Temperature Oral (F) 97.9 F 05/06/[address] [facility] Weight 131.7 05/06/[address] [facility] BMI Calculated 41.66 05/06/[address] [facility] Height 177.8 cm 05/06/[address] [facility] Weight 127.273 05/05/[address] [facility] Systolic (mm Hg) 118 04/26/[address] [facility] Diastolic (mm Hg) 64 04/26/[address] [facility] Respitory Rate 18 04/26/[address] [facility] Heart Rate 78 04/26/[address] [facility] Temperature Oral (F) 97.4 F 04/26/[address] [facility] Weight 128.182 04/25/[address] [facility] BMI Calculated 40.55 04/25/[address] [facility] Height 177.8 cm 04/25/[address] [facility] Respitory Rate 18 04/25/[address] [facility] Temperature Oral (F) 97.2 F 04/25/[address] [facility] Heart Rate 80 04/25/[address] [facility] Systolic (mm Hg) 137 04/25/[address] [facility] Diastolic (mm Hg) 85 04/25/[address] [facility] Temperature Oral (F) 98.7 F 03/05/[address] [facility] Respitory Rate 16 03/05/[address] [facility] Systolic (mm Hg) 127 03/05/[address] [facility] Diastolic (mm Hg) 68 03/05/[address] [facility] Respitory Rate 16 03/05/[address] [facility] Systolic (mm Hg) 124 03/05/[address] [facility] Diastolic (mm Hg) 76 03/05/[address] [facility] Systolic (mm Hg) 127 03/05/[address] [facility] Diastolic (mm Hg) 77 03/05/[address] [facility] Height 177.8 cm 03/05/[address] [facility] BMI Calculated 40.83 03/05/[address] [facility] Weight 129.091 03/05/[address] [facility] Heart Rate 62 03/05/[address] [facility] Temperature Oral (F) 98.9 F 03/05/[address] [facility] Respitory Rate 18 03/05/[address] [facility] Temperature Oral (F) 98.2 F 03/02/[address] [facility] Heart Rate 58 03/02/[address] [facility] Respitory Rate 16 03/02/[address] [facility] Systolic (mm Hg) 120 03/02/[address] [facility] Diastolic (mm Hg) 66 03/02/[address] [facility] Heart Rate 50 03/02/[address] [facility] Weight 128.636 03/02/[address] [facility] Temperature Oral (F) 98.0 F 03/02/[address] [facility] Respitory Rate 18 03/02/[address] [facility] Systolic (mm Hg) 149 03/02/[address] [facility] Diastolic (mm Hg) 87 03/02/[address] [facility] Heart Rate 69 03/02/[address] [facility] Systolic (mm Hg) 107 02/20/[address] [facility] Diastolic (mm Hg) 66 02/20/[address] [facility] Temperature Oral (F) 98.0 F 02/20/[address] [facility] Respitory Rate 17 02/20/[address] [facility] Heart Rate 81 02/20/[address] [facility] Heart Rate 73 02/19/[address] [facility] Respitory Rate 17 02/19/[address] [facility] Temperature Oral (F) 97.8 F 02/19/[address] [facility] Systolic (mm Hg) 96 02/19/[address] [facility] Diastolic (mm Hg) 63 02/19/[address] [facility] Systolic (mm Hg) 128 02/19/[address] [facility] Diastolic (mm Hg) 84 02/19/[address] [facility] Heart Rate 82 02/19/[address] [facility] Temperature Oral (F) 97.9 F 02/19/[address] [facility] Respitory Rate 17 02/19/[address] [facility] Height 177.8 cm 02/17/[address] [facility] BMI Calculated 40.98 02/17/[address] [facility] Weight 129.545 02/17/[address] [facility] Weight 129.545 02/17/[address] [facility] BMI Calculated 40.98 02/17/[address] [facility] Height 177.8 cm 02/17/[address] [facility] Encounters Location Location Encounter Encounter Reason Attending ADM DC Status Source Details Type Number For Provider Date Date Visit [facility] [id number] Osmar 02/16 02/19 [place] Roberts /2015 [facility] [id number] Fei 03/02 03/02 Freddy Partida /2015 [facility] [id number] Rachel Platt 03/05 03/05 [place] /2015 [facility] [id number] Agustin 04/25 04/26 Freddy Lopez /2015 [facility] [id number] Geronimo 05/05 05/07 Freddy Dupont /2015 [facility] [id number] Karey 05/17 05/18 Freddy Zuleta /2015 [facility] Procedures Procedure Code Date Perfomer Comments Source Catheterization of [id number] [facility] right heart Lithotripsy [id number] [facility] Placement of stent in [id number] R RCA 100% [facility] cardiac blockage conduit<sup>1</sup>
--- OUTSIDE RECORDS SUMMARY | 2018-11-11 21:12 | XMS REPORT ---
:1970 Author Organization [facility] Address [address] [place] [address] Care Team Providers Name Role Phone Unavailable [...] reported result: 1.05 Edited by: INFCE on 07/06/18:922104 1510: SILICA CLOTTING previously reported as: 1.05 ARTERIAL THROMBOPHILIA [id number] 12:28:00 Test Item Value Reference Range Comments PROTHROMBIN 3 NO MUTATION () PROTHROMBIN (FACTOR II) 42909G>A UNTRANSLATED (test DETECTED MUTATION INTERPRETATION:This code=XR0COET) individual is negative (normal) for the F40906Rzosiiobm in the Prothrombin/Factor II gene. Increased riskof thrombophilia can be caused by a variety of genetic andnon-genetic factors not screened for this assay. Laboratory testing supervised and results monitored byTarah Segura, Ph.D., [facility], [facility], [facility]. MUTATION ANALYSIS:The Z06038R mutation [NQ659424.1:g.38811T>A (c.*97G>A)] inthe Prothrombin/Factor II gene is the second most commoninherited risk factor for thrombosis occuring inapproximately 2% of Caucasians. Presence of the mutation isassociated with an elevation of prothrombin levels to about30% above normal in heterozygotes and 70% above normal inhomozygotes. The Z76992T mutation is detected bypolymerase chain reaction (PCR) and flourescent probehybridization to the targeted region, followed by meltingcurve analysis with a real time PCR system. Although rare,false positive or false negative results may occur. Allresults should be interpreted in the context of clinicalfindings, relevant history, and other laboratory data. This test was developed and its analytical performancecharacteristics have been determined by [facility]. It has not beencleared or approved by the FDA. This assay has beenvalidated pursuant to the CLIA regulations and is used forclinical purposes. Health care providers, please contact your local [facility] genetic counselor or call [phone]) for assistance with interpretation of theseresults. Performed by: [facility]/[place] [address] ACTIVATED PROT C 3.09 RATIO 2.31-5.00 Ratios [...] supervised and results monitored byBjorn Cardoza, Ph.D., [facility], [facility]. MUTATION ANALYSIS:The Factor v Leiden (R560Q) mutation [NM 056911.2: c.1601G>A(p.R534Q)] in the Factor V gene is [...] its analytical performancecharacteristics have been determined by [facility]. It has not beencleared or approved by the FDA. This assay has beenvalidated pursuant to the CLIA regulations and is used forclinical purposes. Health care providers, please contact your local [facility] genetic counselor or call [phone]) for assistance with interpretation of theseresults. Performed by: [facility] [place] [address] PROTEIN S FREE (test 56 % 68-126 [...] yet been included into the APS criteria. GLTL-9-ALDAW I IGM 0.8 SMU 0.0-20.0 (test code=GPIIGM) HPCP-0-VAQPB I IGG 0.0 SGU 0.0-20.0 (test code=GPIIGG) YJPS-7-FHPVW I IGA 0.5 AHMET 0.0-20.0 The Antiphospholipid [...] SENSITIVITY CRP 2.347 mg/dl 0.000-0.747 (test code=CRPHS) [id number] 12:28:00 Test Item Value Reference Range Comments FIBRINOGEN (test code=FIB) 640 MG/DL 160-450 Excess administration of anticoagulants and/or FibrinDegradation Products may affect Fibrinogen value. FACTOR [id number] 12:28:00 Test Item Value Reference Range Comments [...] Antithrombin levels are not clinicallysignificant. PROTEIN C [id number] 12:28:00 Test Item Value Reference Range Comments [...] increased levels of Protein C. PROTEIN C [id number] 12:28:00 Test Item Value Reference Range Comments PROTEIN C ANTIGENIC (test 71 % 70-140 Decreased levels of Protein C code=PROTCAG) Antigen may be found incongenital deficiency, treatment with oral anticoagulants,liver disease, D.I.C. and post surgery. Performed by: [facility] [place] [address] PROTEIN S [id number] 12:28:00 Test Item Value Reference Range Comments PROTEIN S TOTAL (test 68 % 70-140 Performed by: [facility] code=PROTSTOT) [facility] [place] [address] PROTEIN S FUNC (test 70 % 74-148 Protein S deficiency may be acquired code=PROTSFN) due to recentthrombosis, oral anticoagulant therapy, , oralcontraceptives or hormone replacement therapy, liverdysfunction, recent surgery, DIC, and vitamin K deficiency.Hereditary deficiency of Protein S show decreased levels butare rare. Elevated Protein S levels are not clinicallysignificant. Only decreased levels are associated with anincreased thrombotic risk. MTHF REDUCTASE (PCR) [id number] 12:28:00 Test Item Value Reference Range Comments MTHF REDUCTASE (PCR) 677 (test code=MTHFR TEST NOT PERFORMED 677) LUPUS ANTICOAGULANT [id number] 11:48:00 Test Item Value Reference Range Comments [...] reported result: 1.05 Edited by: SMITA on 07/06/18:770778 1510: SILICA CLOTTING previously reported as: 1.05 ARTERIAL THROMBOPHILIA [id number] 11:48:00 Test Item Value Reference Range Comments PROTHROMBIN 3 NO MUTATION () PROTHROMBIN (FACTOR II) 52328H>A UNTRANSLATED (test DETECTED MUTATION INTERPRETATION:This code=WP3CBGT) individual is negative (normal) for the T24558Pgpmepqqd in the Prothrombin/Factor II gene. Increased riskof thrombophilia can be caused by a variety of genetic andnon-genetic factors not screened for this assay. Laboratory testing supervised and results monitored byaTrah Segura, Ph.D., [facility], [facility], [facility]. MUTATION ANALYSIS:The L61441P mutation [MC257191.1:g.32838Z>A (c.*97G>A)] inthe Prothrombin/Factor II gene is the second most commoninherited risk factor for thrombosis occuring inapproximately 2% of Caucasians. Presence of the mutation isassociated with an elevation of prothrombin levels to about30% above normal in heterozygotes and 70% above normal inhomozygotes. The T72806J mutation is detected bypolymerase chain reaction (PCR) and flourescent probehybridization to the targeted region, followed by meltingcurve analysis with a real time PCR system. Although rare,false positive or false negative results may occur. Allresults should be interpreted in the context of clinicalfindings, relevant history, and other laboratory data. This test was developed and its analytical performancecharacteristics have been determined by [facility]. It has not beencleared or approved by the FDA. This assay has beenvalidated pursuant to the CLIA regulations and is used forclinical purposes. Health care providers, please contact your local [facility] genetic counselor or call [phone]) for assistance with interpretation of theseresults. Performed by: [facility] [place] [address] ACTIVATED PROT C 3.09 RATIO 2.31-5.00 Ratios [...] supervised and results monitored byBjorn Cardoza, Ph.D., [facility], [facility]. MUTATION ANALYSIS:The Factor v Leiden (R560Q) mutation [NM 546972.2: c.1601G>A(p.R534Q)] in the Factor V gene is [...] its analytical performancecharacteristics have been determined by [facility]. It has not beencleared or approved by the FDA. This assay has beenvalidated pursuant to the CLIA regulations and is used forclinical purposes. Health care providers, please contact your local [facility] genetic counselor or call [phone]) for assistance with interpretation of theseresults. Performed by: [facility]/[place] [address] PROTEIN S FREE (test 56 % 68-126 [...] yet been included into the APS criteria. TNLI-9-KRNFV I IGM 0.8 SMU 0.0-20.0 (test code=GPIIGM) UUWC-7-VIRIM I IGG 0.0 SGU 0.0-20.0 (test code=GPIIGG) LCWD-7-RUEII I IGA 0.5 AHMET 0.0-20.0 The Antiphospholipid [...] SENSITIVITY CRP 2.347 mg/dl 0.000-0.747 (test code=CRPHS) [id number] 11:48:00 Test Item Value Reference Range Comments FIBRINOGEN (test code=FIB) 640 MG/DL 160-450 Excess administration of anticoagulants and/or FibrinDegradation Products may affect Fibrinogen value. FACTOR [id number] 11:48:00 Test Item Value Reference Range Comments [...] Antithrombin levels are not clinicallysignificant. PROTEIN C [id number] 11:48:00 Test Item Value Reference Range Comments [...] increased levels of Protein C. PROTEIN C [id number] 11:48:00 Test Item Value Reference Range Comments PROTEIN C ANTIGENIC (test 71 % 70-140 Decreased levels of Protein C code=PROTCAG) Antigen may be found incongenital deficiency, treatment with oral anticoagulants,liver disease, D.I.C. and post surgery. Performed by: [facility] [address] PROTEIN S [id number] 11:48:00 Test Item Value Reference Range Comments PROTEIN S TOTAL (test 68 % 70-140 Performed by: [facility] code=PROTSTOT) Diagnostics/[place] [address] PROTEIN S FUNC (test 70 % 74-148 Protein S deficiency may be acquired code=PROTSFN) due to recentthrombosis, oral anticoagulant therapy, , oralcontraceptives or hormone replacement therapy, liverdysfunction, recent surgery, DIC, and vitamin K deficiency.Hereditary deficiency of Protein S show decreased levels butare rare. Elevated Protein S levels are not clinicallysignificant. Only decreased levels are associated with anincreased thrombotic risk. MTHF REDUCTASE (PCR) [id number] 11:48:00 Test Item Value Reference Range Comments MTHF REDUCTASE (PCR) 677 (test code=MTHFR 677) LUPUS ANTICOAGULANT [id number] 11:04:00 Test Item Value Reference Range Comments [...] reported result: 1.05 Edited by: SMITA on 07/06/18:095149 1510: SILICA CLOTTING previously reported as: 1.05 ARTERIAL THROMBOPHILIA [id number] 11:04:00 Test Item Value Reference Range Comments PROTHROMBIN 3 NO MUTATION () PROTHROMBIN (FACTOR II) 39202H>A UNTRANSLATED (test DETECTED MUTATION INTERPRETATION:This code=RY3VSZQ) individual is negative (normal) for the D94591Qkaoswyug in the Prothrombin/Factor II gene. Increased riskof thrombophilia can be caused by a variety of genetic andnon-genetic factors not screened for this assay. Laboratory testing supervised and results monitored Peg Seguar, Ph.D., [facility], [facility], [facility]. MUTATION ANALYSIS:The Z74026J mutation [XY958818.1:g.51096T>A (c.*97G>A)] inthe Prothrombin/Factor II gene is the second most commoninherited risk factor for thrombosis occuring inapproximately 2% of Caucasians. Presence of the mutation isassociated with an elevation of prothrombin levels to about30% above normal in heterozygotes and 70% above normal inhomozygotes. The R28627N mutation is detected bypolymerase chain reaction (PCR) and flourescent probehybridization to the targeted region, followed by meltingcurve analysis with a real time PCR system. Although rare,false positive or false negative results may occur. Allresults should be interpreted in the context of clinicalfindings, relevant history, and other laboratory data. This test was developed and its analytical performancecharacteristics have been determined by [facility]. It has not beencleared or approved by the FDA. This assay has beenvalidated pursuant to the CLIA regulations and is used forclinical purposes. Health care providers, please contact your local [facility] genetic counselor or call [phone]) for assistance with interpretation of theseresults. Performed by: [facility] [address] ACTIVATED PROT C 3.09 RATIO 2.31-5.00 Ratios [...] supervised and results monitored byBjorn Cardoza, Ph.D., [facility], [facility]. MUTATION ANALYSIS:The Factor v Leiden (R560Q) mutation [NM 443550.2: c.1601G>A(p.R534Q)] in the Factor V gene is [...] its analytical performancecharacteristics have been determined by [facility]. It has not beencleared or approved by the FDA. This assay has beenvalidated pursuant to the CLIA regulations and is used forclinical purposes. Health care providers, please contact your local [facility] genetic counselor or call [phone]) for assistance with interpretation of theseresults. Performed by: [facility] [address] PROTEIN S FREE (test 56 % 68-126 [...] yet been included into the APS criteria. VTDE-9-HBORF I IGM SMU 0.0-20.0 (test code=GPIIGM) WCCR-5-XSYUG I IGG SGU 0.0-20.0 (test code=GPIIGG) UJAX-5-NIIBQ I IGA 0.5 AHMET 0.0-20.0 The Antiphospholipid [...] HIGH SENSITIVITY CRP mg/dl 0.000-0.747 (test code=CRPHS) [id number] 11:04:00 Test Item Value Reference Range Comments FIBRINOGEN (test code=FIB) 640 MG/DL 160-450 Excess administration of anticoagulants and/or FibrinDegradation Products may affect Fibrinogen value. FACTOR [id number] 11:04:00 Test Item Value Reference Range Comments [...] Antithrombin levels are not clinicallysignificant. PROTEIN C [id number] 11:04:00 Test Item Value Reference Range Comments [...] increased levels of Protein C. PROTEIN C [id number] 11:04:00 Test Item Value Reference Range Comments PROTEIN C ANTIGENIC (test 71 % 70-140 Decreased levels of Protein C code=PROTCAG) Antigen may be found incongenital deficiency, treatment with oral anticoagulants,liver disease, D.I.C. and post surgery. Performed by: [facility] [address] PROTEIN S [id number] 11:04:00 Test Item Value Reference Range Comments PROTEIN S TOTAL (test 68 % 70-140 Performed by: [facility] code=PROTSTOT) Diagnostics/[place] [address] PROTEIN S FUNC (test 70 % 74-148 Protein S deficiency may be acquired code=PROTSFN) due to recentthrombosis, oral anticoagulant therapy, , oralcontraceptives or hormone replacement therapy, liverdysfunction, recent surgery, DIC, and vitamin K deficiency.Hereditary deficiency of Protein S show decreased levels butare rare. Elevated Protein S levels are not clinicallysignificant. Only decreased levels are associated with anincreased thrombotic risk. MTHF REDUCTASE (PCR) [id number] 11:04:00 Test Item Value Reference Range Comments MTHF REDUCTASE (PCR) 677 (test code=MTHFR 677) LUPUS ANTICOAGULANT [id number] 11:03:00 Test Item Value Reference Range Comments [...] reported result: 1.05 Edited by: SMITA on 07/06/18:503621/ 1510: SILICA CLOTTING previously reported as: 1.05 ARTERIAL THROMBOPHILIA [id number] 11:03:00 Test Item Value Reference Range Comments PROTHROMBIN 3 NO MUTATION () PROTHROMBIN (FACTOR II) 73927F>A UNTRANSLATED (test DETECTED MUTATION INTERPRETATION:This code=QL7SBFK) individual is negative (normal) for the F38733Exbzbdvcz in the Prothrombin/Factor II gene. Increased riskof thrombophilia can be caused by a variety of genetic andnon-genetic factors not screened for this assay. Laboratory testing supervised and results monitored byTarah Segura, Ph.D., [facility], [facility], [facility]. MUTATION ANALYSIS:The K30245B mutation [MF062855.1:g.99337Z>A (c.*97G>A)] inthe Prothrombin/Factor II gene is the second most commoninherited risk factor for thrombosis occuring inapproximately 2% of Caucasians. Presence of the mutation isassociated with an elevation of prothrombin levels to about30% above normal in heterozygotes and 70% above normal inhomozygotes. The E60199Q mutation is detected bypolymerase chain reaction (PCR) and flourescent probehybridization to the targeted region, followed by meltingcurve analysis with a real time PCR system. Although rare,false positive or false negative results may occur. Allresults should be interpreted in the context of clinicalfindings, relevant history, and other laboratory data. This test was developed and its analytical performancecharacteristics have been determined by [facility]. It has not beencleared or approved by the FDA. This assay has beenvalidated pursuant to the CLIA regulations and is used forclinical purposes. Health care providers, please contact your local [facility] genetic counselor or call [phone] for assistance with interpretation of theseresults. Performed by: [facility]/[place] [address] ACTIVATED PROT C 3.09 RATIO 2.31-5.00 Ratios [...] supervised and results monitored byBjorn Cardoza, Ph.D., [facility], [facility]. MUTATION ANALYSIS:The Factor v Leiden (R560Q) mutation [NM 829426.2: c.1601G>A(p.R534Q)] in the Factor V gene is [...] its analytical performancecharacteristics have been determined by [facility]. It has not beencleared or approved by the FDA. This assay has beenvalidated pursuant to the CLIA regulations and is used forclinical purposes. Health care providers, please contact your local [place] genetic counselor or call [phone]) for assistance with interpretation of theseresults. Performed by: [facility] [place] [address] PROTEIN S FREE (test 56 % 68-126 [...] yet been included into the APS criteria. XREF-4-FTFCZ I IGM SMU 0.0-20.0 (test code=GPIIGM) XKGV-0-BDAAC I IGG SGU 0.0-20.0 (test code=GPIIGG) BFMU-2-BVAGF I IGA 0.5 AHMET 0.0-20.0 The Antiphospholipid [...] HIGH SENSITIVITY CRP mg/dl 0.000-0.747 (test code=CRPHS) [id number] 11:03:00 Test Item Value Reference Range Comments FIBRINOGEN (test code=FIB) 640 MG/DL 160-450 Excess administration of anticoagulants and/or FibrinDegradation Products may affect Fibrinogen value. FACTOR [id number] 11:03:00 Test Item Value Reference Range Comments [...] Antithrombin levels are not clinicallysignificant. PROTEIN C [id number] 11:03:00 Test Item Value Reference Range Comments [...] increased levels of Protein C. PROTEIN C [id number] 11:03:00 Test Item Value Reference Range Comments PROTEIN C ANTIGENIC (test 71 % 70-140 Decreased levels of Protein C code=PROTCAG) Antigen may be found incongenital deficiency, treatment with oral anticoagulants,liver disease, D.I.C. and post surgery. Performed by: [facility]/[place] [address] PROTEIN S [id number] 11:03:00 Test Item Value Reference Range Comments [...] with anincreased thrombotic risk. MTHF REDUCTASE (PCR) [id number] 11:03:00 Test Item Value Reference Range Comments MTHF REDUCTASE (PCR) 677 (test code=MTHFR 677) LUPUS ANTICOAGULANT [id number] 21:21:00 Test Item Value Reference Range Comments [...] reported result: 1.05 Edited by: SMITA on 07/06/18:315539 1510: SILICA CLOTTING previously reported as: 1.05 ARTERIAL THROMBOPHILIA [id number] 21:21:00 Test Item Value Reference Range Comments PROTHROMBIN 3 UNTRANSLATED (test code=VW8JEUH) ACTIVATED PROT C 3.09 RATIO 2.31-5.00 Ratios [...] yet been included into the APS criteria. EYWO-4-CYGRA I IGM SMU 0.0-20.0 (test code=GPIIGM) CWOU-6-JISWB I IGG SGU 0.0-20.0 (test code=GPIIGG) LRFQ-2-JFJJY I IGA 0.5 AHMET 0.0-20.0 The Antiphospholipid [...] HIGH SENSITIVITY CRP mg/dl 0.000-0.747 (test code=CRPHS) [id number] 21:21:00 Test Item Value Reference Range Comments FIBRINOGEN (test code=FIB) 640 MG/DL 160-450 Excess administration of anticoagulants and/or FibrinDegradation Products may affect Fibrinogen value. FACTOR [id number] 21:21:00 Test Item Value Reference Range Comments [...] Antithrombin levels are not clinicallysignificant. PROTEIN C [id number] 21:21:00 Test Item Value Reference Range Comments [...] increased levels of Protein C. PROTEIN C [id number] 21:21:00 Test Item Value Reference Range Comments PROTEIN C ANTIGENIC (test 71 % 70-140 Decreased levels of Protein C code=PROTCAG) Antigen may be found incongenital deficiency, treatment with oral anticoagulants,liver disease, D.I.C. and post surgery. Performed by: [facility] [place] [address] PROTEIN S [id number] 21:21:00 Test Item Value Reference Range Comments [...] with anincreased thrombotic risk. MTHF REDUCTASE (PCR) [id number] 21:21:00 Test Item Value Reference Range Comments MTHF REDUCTASE (PCR) 677 (test code=MTHFR 677) ANTIPHOSPHATIDYL SERINE [id number] 16:18:00 Test Item Value Reference Range Comments APS ABS IGG (test 2 GPS IgG 0-11 Performed At: [facility] code=APSIGG) [address] [id number] Batista MD Ph:[phone] APS ABS IGM (test 5 MPS IgM 0-25 code=APSIGM) APS ABS IGA (test 1 APS IgA 0-20 code=APSIGA) LUPUS ANTICOAGULANT [id number] 14:43:00 Test Item Value Reference Range Comments [...] 61.8-83.8 Sec Effective 07/21/2013 PTT 1:1 MIX IMPROVEMENT COORDINATOR (test SECS code=PTTMIX2) PTT 1:3 MIX (test [...] reported result: 1.05 Edited by: SMITA on 07/06/18:808769 1510: SILICA CLOTTING previously reported as: 1.05 ARTERIAL THROMBOPHILIA [id number] 14:43:00 Test Item Value Reference Range Comments PROTHROMBIN 3 UNTRANSLATED (test code=NF9VFID) ACTIVATED PROT C 3.09 RATIO 2.31-5.00 Ratios [...] yet been included into the APS criteria. OCMA-3-WQZVM I IGM SMU 0.0-20.0 (test code=GPIIGM) VMOP-7-NNUVY I IGG SGU 0.0-20.0 (test code=GPIIGG) OWGJ-3-IGMSG I IGA 0.5 AHMET 0.0-20.0 The Antiphospholipid [...] HIGH SENSITIVITY CRP mg/dl 0.000-0.747 (test code=CRPHS) [id number] 14:43:00 Test Item Value Reference Range Comments FIBRINOGEN (test code=FIB) 640 MG/DL 160-450 Excess administration of anticoagulants and/or FibrinDegradation Products may affect Fibrinogen value. FACTOR [id number] 14:43:00 Test Item Value Reference Range Comments [...] Antithrombin levels are not clinicallysignificant. PROTEIN C [id number] 14:43:00 Test Item Value Reference Range Comments [...] increased levels of Protein C. PROTEIN C [id number] 14:43:00 Test Item Value Reference Range Comments PROTEIN C ANTIGENIC (test 71 % 70-140 Decreased levels of Protein C code=PROTCAG) Antigen may be found incongenital deficiency, treatment with oral anticoagulants,liver disease, D.I.C. and post surgery. Performed by: [facility]/[place] [address] PROTEIN S [id number] 14:43:00 Test Item Value Reference Range Comments [...] with anincreased thrombotic risk. MTHF REDUCTASE (PCR) [id number] 14:43:00 Test Item Value Reference Range Comments MTHF REDUCTASE (PCR) 677 (test code=MTHFR 677) LUPUS ANTICOAGULANT [id number] 14:31:00 Test Item Value Reference Range Comments [...] 61.8-83.8 Sec Effective 07/21/2013 PTT 1:1 MIX IMPROVEMENT COORDINATOR (test SECS code=PTTMIX2) PTT 1:3 MIX (test [...] reported result: 1.05 Edited by: SMITA on 07/06/18:227504 1510: SILICA CLOTTING previously reported as: 1.05 ARTERIAL THROMBOPHILIA [id number] 14:31:00 Test Item Value Reference Range Comments PROTHROMBIN 3 UNTRANSLATED (test code=XV4OHGJ) ACTIVATED PROT C 3.09 RATIO 2.31-5.00 Ratios [...] yet been included into the APS criteria. MRVB-8-UHTYY I IGM SMU <20 (test code=GPIIGM) MUMH-7-PTKCF I IGG UNITS <20 (test code=GPIIGG) JSQH-2-PPCUT I IGA 0.0-20.0 (test code=GPIIGA) HOMOCYSTEINE (test TEST NOT PERFORMED 3.2-10.7 code=HOMOCY) umol/L HIGH SENSITIVITY CRP mg/dl 0.000-0.747 (test code=CRPHS) [id number] 14:31:00 Test Item Value Reference Range Comments FIBRINOGEN (test code=FIB) 640 MG/DL 160-450 Excess administration of anticoagulants and/or FibrinDegradation Products may affect Fibrinogen value. FACTOR [id number] 14:31:00 Test Item Value Reference Range Comments [...] Antithrombin levels are not clinicallysignificant. PROTEIN C [id number] 14:31:00 Test Item Value Reference Range Comments [...] increased levels of Protein C. PROTEIN C [id number] 14:31:00 Test Item Value Reference Range Comments PROTEIN C ANTIGENIC (test 71 % 70-140 Decreased levels of Protein C code=PROTCAG) Antigen may be found incongenital deficiency, treatment with oral anticoagulants,liver disease, D.I.C. and post surgery. Performed by: [facility]/[place] [address] PROTEIN S [id number] 14:31:00 Test Item Value Reference Range Comments [...] with anincreased thrombotic risk. MTHF REDUCTASE (PCR) [id number] 14:31:00 Test Item Value Reference Range Comments MTHF REDUCTASE (PCR) 677 (test code=MTHFR 677)
[2018-11-11] MEDS ORDERED: DIPHENHYDRAMINE 50 MG/ML VIAL ONE (22:44)
[2018-11-11] MEDS ORDERED: METOCLOPRAMIDE 10 MG/2mL INJ ONE (22:44)
[2018-11-11] MEDS ORDERED: clonazePAM 0.5 MG TAB ONE (22:44)
[2018-11-11 23:04] LABS: Absolute Lymphocytes (CBC) 2.4 K/uL (0.7-4.9); Absolute Neutrophil 9.7 K/uL (1.8-8.0); Basophils % 0.3 % (0-1.3); Eosinophils % 0.8 % (0-4.4); Hematocrit 43.4 % (39.6-49.0); Monocytes % 7.8 % (3.3-12.3)
[2018-11-11 23:12] LABS: Magnesium 2.3 mg/dL (1.8-2.4); Potassium 3.1 mmol/L (3.5-5.1)
--- NOTE | 2018-11-12 00:12 | EDPHYS ---
Physician Documentation [facility] Name: Marquis Nelson Age: 48 yrs Sex: Male : 1970 Arrival Date: 11/11/2018 Time: 21:01 Bed 26 Private MD: ED Physician Floyd Urban HPI: 11/12 00:08 This 48 yrs old Male presents to ER via Ambulatory with complaints of gs Headache. 00:08 The patient complains of pain to the top of head. The patient describes the headache as gs throbbing. Onset: The symptoms/episode began/occurred this morning. Associated signs and symptoms: Pertinent negatives: altered mental status. Severity of symptoms: At its worst the pain was severe, in the emergency department the pain is unchanged. Headache History: The patient has had previous headaches. The symptoms are alleviated by nothing. the symptoms are aggravated by nothing. The patient has experienced similar episodes in the past, a few times. The patient has not recently seen a physician. Historical: - Allergies: 11/11 21:30 Beta Blockers (sensitive/hypotension); aj1 21:30 Demerol; aj1 21:30 Flomax; aj1 21:30 Ibuprofen; aj1 21:30 Neurontin; aj1 21:30 Skelaxin; aj1 21:30 Spironolactone; aj1 21:30 Stadol; aj1 21:30 tramadol; aj1 21:30 Trazodone; aj1 21:30 Remeron; aj1 - Home Meds: 21:30 Pristiq 150 mg Oral Tb24 1 tab once daily [Active]; Abilify 10 mg Oral tab 1 tab once aj1 daily [Active]; allopurinol 300 mg Oral tab 1 tab once daily [Active]; amlodipine 5 mg tab 1 tab twice a day [Active]; atorvastatin 40 mg Oral tab 1 tab nightly [Active]; clonazepam 1 mg Oral TbDL 1 tab every 6 hours [Active]; docusate sodium 100 mg Oral tab 2 times per day [Active]; ferrous sulfate 325 mg (65 mg iron) Oral tab 1 tab three times a day [Active]; folic acid 1 mg Oral tab 1 tab once daily [Active]; furosemide 80 mg oral tab 2 times per day [Active]; Glucophage XR 500 mg Oral Tb24 2 times per day [Active]; Klor-Con M20 20 mEq Oral TbTQ 1 tab once daily [Active]; magnesium oxide 400 mg Oral tab daily [Active]; Plavix 75 mg Oral tab 1 tab once daily [Active]; Vitamin B-12 1,000 mcg oral tab daily [Active]; diclofenac sodium 100 mg oral Tb24 1 tab once daily [Active]; Trulicity 0.75 mg/0.5 mL subcutaneous pnij once wkly [Active]; potassium chloride 20 mEq Oral pack 1 packet 3 times per day [Active]; methocarbamol 750 mg Oral tab twice a day [Active]; metolazone 2.5 mg Oral tab [Active]; Nitrostat 0.4 mg SL subl every 5 minutes [Active]; pantoprazole 40 mg Oral TbEC 1 tab once daily [Active]; promethazine 25 mg Oral tab as needed [Active]; Ranexa 1,000 mg Oral Tb12 [Active]; Suboxone 8-2 mg sublingual film [Active]; testosterone gel pump [Active]; Vitamin B-6 Oral 1 tab daily [Active]; warfarin 10 mg Friday and Friday, 7.5 mg Friday, Friday, , Friday, and Friday Oral tab 1 tab once daily [Active]; - PMHx: 21:30 AAA; ADD/ADHD; Anemia; Anxiety; Atrial Fib; CHF; GERD; High Cholesterol; Hypertension; aj1 Kidney stones; Myocardial infarction; Pulmonary Embolism; R BUNDLE BRANCH BLOCK; Sleep Apnea; Pacemaker; - Immunization history:: Flu vaccine is not up to date. - Social history:: Smoking status: Patient/guardian denies using tobacco. - Ebola Screening: : Patient denies travel to an Ebola-affected area in the 21 days before illness onset. ROS: 11/12 00:08 All other systems are negative. gs Exam: 00:08 Head/Face: Normocephalic, atraumatic. Eyes: Pupils equal round and reactive to light, gs extra-ocular motions intact. Lids and lashes normal. Conjunctiva and sclera are non-icteric and not injected. Cornea within normal limits. Periorbital areas with no swelling, redness, or edema. ENT: Nares patent. No nasal discharge, no septal abnormalities noted. Tympanic membranes are normal and external auditory canals are clear. Oropharynx with no redness, swelling, or masses, exudates, or evidence of obstruction, uvula midline. Mucous membranes moist. Neck: Trachea midline, no thyromegaly or masses palpated, and no cervical lymphadenopathy. Supple, full range of motion without nuchal rigidity, or vertebral point tenderness. No Meningismus. Chest/axilla: Normal chest wall appearance and motion. Nontender with no deformity. No lesions are appreciated. Cardiovascular: Regular rate and rhythm with a normal S1 and S2. No gallops, murmurs, or rubs. Normal PMI, no JVD. No pulse deficits. Respiratory: Lungs have equal breath sounds bilaterally, clear to auscultation and percussion. No rales, rhonchi or wheezes noted. No increased work of breathing, no retractions or nasal flaring. Abdomen/GI: Soft, non-tender, with normal bowel sounds. No distension or tympany. No guarding or rebound. No evidence of tenderness throughout. Back: No spinal tenderness. No costovertebral tenderness. Full range of motion. Skin: Warm, dry with normal turgor. Normal color with no rashes, no lesions, and no evidence of cellulitis. MS/ Extremity: Pulses equal, no cyanosis. Neurovascular intact. Full, normal range of motion. Neuro: Awake and alert, GCS 15, oriented to person, place, time, and situation. Cranial nerves II-XII grossly intact. Motor strength 5/5 in all extremities. Sensory grossly intact. Cerebellar exam normal. Normal gait. 00:08 Constitutional: The patient appears alert, awake. 00:08 ECG was reviewed by the Attending Physician. Vital Signs: 11/11 21:30 BP 128 / 71; Pulse 87; Resp 18; Temp 98.2; Pulse Ox 97% ; Weight 127.01 kg (R); Height aj1 5 ft. 10 in. (177.80 cm) (R); Pain 8/10; 22:15 BP 111 / 89; Pulse 81; Resp 17 S; Temp 98.1(O); Pulse Ox 97% on R/A; ca1 11/12 00:06 BP 109 / 67; Pulse 73; Resp 18; Temp 98; Pulse Ox 97% on R/A; Pain 0/10; mg2 11/11 21:30 Body Mass Index 40.18 (127.01 kg, 177.80 cm) aj1 [place] Coma Score: 00:08 Eye Response: spontaneous(4). Verbal Response: oriented(5). Motor Response: obeys gs commands(6). Total: 15. MDM: 11/11 22:11 Patient medically screened. 11/12 00:08 Differential diagnosis: cluster headache, intracerebral hemorrhage, migraine. Data gs reviewed: vital signs, nurses notes, lab test result(s), EKG, radiologic studies. Counseling: I had a detailed discussion with the patient and/or guardian regarding: the historical points, exam findings, and any diagnostic results supporting the discharge/admit diagnosis, the presence of at least one elevated blood pressure reading (>120/80) during this emergency department visit, lab results, radiology results, the need for outpatient follow up. Response to treatment: the patient's symptoms have markedly improved after treatment, and as a result, I will discharge patient. 11/11 22:17 Order name: Basic Metabolic Panel 11/11 22:17 Order name: CBC with Diff 11/11 22:17 Order name: Magnesium; Complete Time: 23:28 11/11 22:17 Order name: Basic Metabolic Panel; Complete Time: 23:28 EDMS 11/11 22:17 Order name: CBC with Automated Diff; Complete Time: 23:28 EDMS 11/11 22:24 Order name: CT Head Brain wo Cont 11/11 22:17 Order name: EKG; Complete Time: 22:17 11/11 22:17 Order name: Cardiac monitoring; Complete Time: 23:01 11/11 22:17 Order name: EKG - Nurse/Tech; Complete Time: 23:01 11/11 22:17 Order name: IV Saline Lock; Complete Time: 22:50 11/11 22:17 Order name: Labs collected and sent; Complete Time: 22:51 11/11 22:17 Order name: O2 Per Protocol; Complete Time: 22:50 11/11 22:17 Order name: O2 Sat Monitoring; Complete Time: 22:50 EC:08 Rate is 74 beats/min. Rhythm is regular. AR interval is normal. QRS interval is gs prolonged. Q waves are Old. No ST changes noted. Clinical impression: NSR w/ Non-specific ST/T Changes and Abnormal EKG without significant change. Interpreted by me. Administered Medications: 11/11 22:30 Drug: KLONopin 1 mg Route: PO; ca1 11/12 00:08 Follow up: Response: No adverse reaction ca1 11/11 22:35 Drug: Reglan 5 mg Route: IVP; Site: right antecubital; ca1 11/12 00:09 Follow up: Response: No adverse reaction; Nausea is decreased ca1 11/11 22:40 Drug: Benadryl 25 mg Route: IVP; Site: right antecubital; ca1 11/12 00:09 Follow up: Response: No adverse reaction; Pain is decreased ca1 00:07 Drug: Potassium Effervescent Tablet 50 mEq Route: PO; ca1 00:27 Follow up: Response: No adverse reaction; Medication administered at discharge. mg2 Disposition: 11/12/18 00:11 Discharged to Home. Impression: Headache. - Condition is Stable. - Discharge Instructions: General Headache Without Cause. - Medication Reconciliation Form, Thank You Letter, Antibiotic Education, Prescription Opioid Use form. - Follow up: Private Physician; When: 2 - 3 days; Reason: Re-evaluation by your physician. Signatures: Dispatcher [employer] EDCailin Olguin RN RN aj1 Floyd Urban MD MD gs Miles Dowd RN RN mg2 Lauren Minor RN RN ca1 Corrections: (The following items were deleted from the chart) 00:28 00:11 11/12/2018 00:11 Discharged to Home. Impression: Headache. Condition is Stable. mg2 Forms are Medication Reconciliation Form, Thank You Letter, Antibiotic Education, Prescription Opioid Use. Follow up: Private Physician; When: 2 - 3 days; Reason: Re-evaluation by your physician. gs
--- NOTE | 2018-11-12 00:12 | ER ---
Nurse's Notes [facility] Name: Marquis Nelson Age: 48 yrs Sex: Male : 1970 Arrival Date: 11/11/2018 Time: 21:01 Bed 26 Private MD: Diagnosis: Headache Presentation: 11/11 21:19 Presenting complaint: Patient states: "For the first time in years I have a migraine aj1 and I feel extremely weak" Reports that his headache started this morning around 9:00, reports that he has had migraines in the past but it has been a long time. Patient also reports generalized weakness. Transition of care: patient was not received from another setting of care. Onset of symptoms was November 11, 2018 at 09:00. Risk Assessment: Do you want to hurt yourself or someone else? Patient reports no desire to harm self or others. Initial Sepsis Screen: Does the patient meet any 2 criteria? No. Patient's initial sepsis screen is negative. Does the patient have a suspected source of infection? No. Patient's initial sepsis screen is negative. Care prior to arrival: None. 21:19 Method Of Arrival: Ambulatory [facility] 21:19 Acuity: THANH 3 aj1 Triage Assessment: 21:30 Headache History: The patient has had previous headaches and this one is similar to aj1 previous episodes. General: Appears in no apparent distress. uncomfortable, Behavior is calm, cooperative, appropriate for age. Pain: Complains of pain in left eye Pain currently is 8 out of 10 on a pain scale. Pain began 12 hoursago Also complains of photophobia. Neuro: Level of Consciousness is awake, alert, obeys commands. Cardiovascular: Patient's skin is warm and dry. Respiratory: Airway is patent Respiratory effort is even, unlabored, Respiratory pattern is regular, symmetrical. Historical: - Allergies: 21:30 Beta Blockers (sensitive/hypotension); aj1 21:30 Demerol; aj1 21:30 Flomax; aj1 21:30 Ibuprofen; aj1 21:30 Neurontin; aj1 21:30 Skelaxin; aj1 21:30 Spironolactone; aj1 21:30 Stadol; aj1 21:30 tramadol; aj1 21:30 Trazodone; aj1 21:30 Remeron; aj1 - Home Meds: 21:30 Pristiq 150 mg Oral Tb24 1 tab once daily [Active]; Abilify 10 mg Oral tab 1 tab once aj1 daily [Active]; allopurinol 300 mg Oral tab 1 tab once daily [Active]; amlodipine 5 mg tab 1 tab twice a day [Active]; atorvastatin 40 mg Oral tab 1 tab nightly [Active]; clonazepam 1 mg Oral TbDL 1 tab every 6 hours [Active]; docusate sodium 100 mg Oral tab 2 times per day [Active]; ferrous sulfate 325 mg (65 mg iron) Oral tab 1 tab three times a day [Active]; folic acid 1 mg Oral tab 1 tab once daily [Active]; furosemide 80 mg oral tab 2 times per day [Active]; Glucophage XR 500 mg Oral Tb24 2 times per day [Active]; Klor-Con M20 20 mEq Oral TbTQ 1 tab once daily [Active]; magnesium oxide 400 mg Oral tab daily [Active]; Plavix 75 mg Oral tab 1 tab once daily [Active]; Vitamin B-12 1,000 mcg oral tab daily [Active]; diclofenac sodium 100 mg oral Tb24 1 tab once daily [Active]; Trulicity 0.75 mg/0.5 mL subcutaneous pnij once wkly [Active]; potassium chloride 20 mEq Oral pack 1 packet 3 times per day [Active]; methocarbamol 750 mg Oral tab twice a day [Active]; metolazone 2.5 mg Oral tab [Active]; Nitrostat 0.4 mg SL subl every 5 minutes [Active]; pantoprazole 40 mg Oral TbEC 1 tab once daily [Active]; promethazine 25 mg Oral tab as needed [Active]; Ranexa 1,000 mg Oral Tb12 [Active]; Suboxone 8-2 mg sublingual film [Active]; testosterone gel pump [Active]; Vitamin B-6 Oral 1 tab daily [Active]; warfarin 10 mg Friday and Friday, 7.5 mg Friday, Friday, , Friday, and Friday Oral tab 1 tab once daily [Active]; - PMHx: 21:30 AAA; ADD/ADHD; Anemia; Anxiety; Atrial Fib; CHF; GERD; High Cholesterol; Hypertension; aj1 Kidney stones; Myocardial infarction; Pulmonary Embolism; R BUNDLE BRANCH BLOCK; Sleep Apnea; Pacemaker; - Immunization history:: Flu vaccine is not up to date. - Social history:: Smoking status: Patient/guardian denies using tobacco. - Ebola Screening: : Patient denies travel to an Ebola-affected area in the 21 days before illness onset. Screenin:40 Abuse screen: Denies threats or abuse. Denies injuries from another. Nutritional ca1 screening: No deficits noted. Tuberculosis screening: No symptoms or risk factors identified. Fall Risk None identified. Assessment: 21:40 General: Appears in no apparent distress. comfortable, Behavior is calm, cooperative, ca1 appropriate for age. Pain: Complains of pain in face and scalp and left eye Pain currently is 8 out of 10 on a pain scale. Pain began 0900 today Is continuous. Neuro: Level of Consciousness is awake, alert, obeys commands, Oriented to person, place, time, situation, Truck Engine Assembler are equal bilaterally Moves all extremities. Gait is steady, Speech is normal, Facial symmetry appears normal, Reports headache in left since 0900 today. Cardiovascular: Heart tones S1 S2 present Capillary refill < 3 seconds Patient's skin is warm and dry. Respiratory: Airway is patent Respiratory effort is even, unlabored, Respiratory pattern is regular, symmetrical, Breath sounds are clear bilaterally. GI: Abdomen is round non-distended, Bowel sounds present X 4 quads. Abd is soft and non tender X 4 quads. Reports nausea, vomiting, since 1200 today. : No deficits noted. No signs and/or symptoms were reported regarding the genitourinary system. EENT: No deficits noted. No signs and/or symptoms were reported regarding the EENT system. Derm: Skin is intact, is healthy with good turgor, Skin is pink, warm \\T\\ dry. Musculoskeletal: Circulation, motion, and sensation intact. Capillary refill < 3 seconds, Range of motion: intact in all extremities. 22:37 Reassessment: Patient appears in no apparent distress at this time. Patient and/or ca1 family updated on plan of care and expected duration. Pain level reassessed. Patient is alert, oriented x 3, equal unlabored respirations, skin warm/dry/pink. 23:35 Reassessment: Patient appears in no apparent distress at this time. Patient is alert, ca1 oriented x 3, equal unlabored respirations, skin warm/dry/pink. 11/12 00:27 Reassessment: Patient states feeling better. Patient states symptoms have improved. mg2 Vital Signs: 11/11 21:30 BP 128 / 71; Pulse 87; Resp 18; Temp 98.2; Pulse Ox 97% ; Weight 127.01 kg (R); Height aj1 5 ft. 10 in. (177.80 cm) (R); Pain 8/10; 22:15 BP 111 / 89; Pulse 81; Resp 17 S; Temp 98.1(O); Pulse Ox 97% on R/A; ca1 11/12 00:06 BP 109 / 67; Pulse 73; Resp 18; Temp 98; Pulse Ox 97% on R/A; Pain 0/10; mg2 11/11 21:30 Body Mass Index 40.18 (127.01 kg, 177.80 cm) aj1 [place] Coma Score: 00:08 Eye Response: spontaneous(4). Verbal Response: oriented(5). Motor Response: obeys gs commands(6). Total: 15. ED Course: 11/11 20:45 Inserted saline lock: 20 gauge in right antecubital area, using aseptic technique. ca1 Blood collected. 21:01 Patient arrived in ED. es 21:21 Triage completed. aj1 21:30 Arm band placed on Patient placed in an exam room. aj1 21:40 Lauren Minor RN is Primary Nurse. ca1 21:40 Floyd Urban MD is Attending Physician. gs 21:40 Patient has correct armband on for positive identification. Placed in gown. Bed in low ca1 position. Call light in reach. Side rails up X 1. Pulse ox on. NIBP on. Door closed. Noise minimized. Lights dimmed. Warm blanket given. Pillow given. 21:44 No provider procedures requiring assistance completed. ca1 22:[address] vm2 22:54 CT Head Brain wo Cont In Process Unspecified. EDMS 11/12 00:27 IV discontinued, intact, bleeding controlled, No redness/swelling at site. Pressure mg2 dressing applied. Administered Medications: 11/11 22:30 Drug: KLONopin 1 mg Route: PO; ca1 11/12 00:08 Follow up: Response: No adverse reaction ca1 11/11 22:35 Drug: Reglan 5 mg Route: IVP; Site: right antecubital; ca1 11/12 00:09 Follow up: Response: No adverse reaction; Nausea is decreased ca1 11/11 22:40 Drug: Benadryl 25 mg Route: IVP; Site: right antecubital; ca1 11/12 00:09 Follow up: Response: No adverse reaction; Pain is decreased ca1 00:07 Drug: Potassium Effervescent Tablet 50 mEq Route: PO; ca1 00:27 Follow up: Response: No adverse reaction; Medication administered at discharge. mg2 Outcome: 00:11 Discharge ordered by . 00:28 Discharged to home ambulatory, with family. mg2 00:28 Condition: stable 00:28 Discharge instructions given to patient, family, Instructed on discharge instructions, follow up and referral plans. Demonstrated understanding of instructions, follow-up care. 00:28 Patient left the ED. mg2 Signatures: Dispatcher [employer] Cailin José RN RN aj1 Danni Max Victoria 2 Floyd Urban MD MD Mlies Dowd RN RN mg2 Lauren Minor RN RN ca1
[2018-11-12] MEDS ORDERED: POTASSIUM 25 MEQ EFFERV TAB ONE (00:21)
[2018-11-12 01:09] VITALS: O2SAT 97
[2018-11-12 01:12] VITALS: BP 109/67; TEMP 98
--- NOTE | 2018-11-12 09:43 | RAD REPORT ---
EXAM DESCRIPTION: CT - Head Brain Wo Cont - 11/12/2018 2:08 am CLINICAL HISTORY: Headache on coumadin COMPARISON: None. TECHNIQUE: CT HEAD WITHOUT IV CONTRAST on 11/11/2018 10:24 PM CDT This exam was performed according to our departmental dose-optimization program, which includes autom ated exposure control, adjustment of the mA and/or kV according to patient size and/or use of iterati ve reconstruction technique. FINDINGS: There is no acute hemorrhage, mass effect or midline shift. Morejon-white differentiation is preserved. There is no hydrocephalus. There is no significant volume loss for age. The calvarium is intact. Orbits and globes are unremarkable. The paranasal sinuses are clear. Mastoid air cells are clear. IMPRESSION: No acute intracranial findings. Electronically signed by: Bowen Loene MD 11/11/2018 11:04 PM CDT Due to temporary technical issues with the PACS/Fluency reporting system, reports are being signed by the in house radiologist as a courtesy to ensure prompt reporting. The interpreting radiologist is f ully responsible for the content of the report.
--- NOTE | 2018-11-12 16:32 | EKG ---
Test Date: 2018-11-11 Test Time: 22:55:38 Circular Knife Machine Cutter: KRISTIET MEASUREMENT RESULTS: Intervals: Rate: 74 ME: 176 QRSD: 156 QT: 436 QTc: 483 [employer]: P: 16 ME: 176 QRS: -1 T: 8 INTERPRETIVE STATEMENTS: Normal sinus rhythm Right bundle branch block Inferior infarct, age undetermined Abnormal ECG Compared to ECG 10/18/2018 05:30:51 No significant changes Electronically Signed On 11-12-18 16:31:20 CDT by Guilherme Sharma
== END 2018-11-12 00:28 | disposition home or self-care (01) ==
LOC: ER 20:59
DX: R51 Headache (principal); I10 Essential (primary) hypertension; E78.00 Pure hypercholesterolemia, unspecified; I50.9 Heart failure, unspecified; I48.91 Unspecified atrial fibrillation; F41.9 Anxiety disorder, unspecified; F90.9 Attention-deficit hyperactivity disorder, unspecified type; I25.2 Old myocardial infarction; Z79.01 Long term (current) use of anticoagulants; Z88.5 Allergy status to narcotic agent; Z88.6 Allergy status to analgesic agent; Z88.8 Allergy status to other drugs, medicaments and biological substances; Z95.0 Presence of cardiac pacemaker
CPT/HCPCS: 36415; 70450; 80048; 83735; 85025; 93005; 96374; 96375; 99284; J2765

== ENCOUNTER 2018-11-20 12:54 | Emergency (ER) | payer OTHER ==
[2018-11-20] MEDS ORDERED: LIDOCAINE 1% W/EPI 1:100,000 MDV 50 ML VIAL ONE (14:05)
[2018-11-20] MEDS ORDERED: BUPIVACAINE 0.5% PF 10 ML VIAL ONE (14:05)
[2018-11-20] MEDS ORDERED: CEPHALEXIN 250 MG CAP ONE (14:05)
[2018-11-20] MEDS ORDERED: TETANUS & DIPHTHERIA TOX,ADULT 0.5 ML VIAL ONE (14:05)
--- NOTE | 2018-11-20 14:15 | EDPHYS ---
Physician Documentation [facility] Name: Marquis Nelson Age: 48 yrs Sex: Male : 1970 Arrival Date: 11/20/2018 Time: 12:58 Bed 5 Private MD: ED Physician Wali Arreola HPI: 11/20 13:09 This 48 yrs old Male presents to ER via Ambulatory with complaints of kdr Laceration To Foot. 13:09 The patient has a laceration related to: Walking and dropped a knife on his foot then kdr stepped on the handle. He now has a 2.5 cm laceration to the dorsum of his right foot. occurred at home. The laceration(s) is(are) located on the dorsum of right foot. Onset: The symptoms/episode began/occurred suddenly, just prior to arrival. The patient has not experienced similar symptoms in the past. The patient has not recently seen a physician. Historical: - Allergies: 12:59 Beta Blockers (sensitive/hypotension); sv 12:59 Flomax; sv 12:59 Ibuprofen; sv 12:59 Neurontin; sv 12:59 Remeron; sv 12:59 Skelaxin; sv 12:59 Spironolactone; sv 12:59 Stadol; sv 12:59 tramadol; sv 12:59 Trazodone; sv - PMHx: 12:59 AAA; ADD/ADHD; Anemia; Anxiety; Kidney stones; Pacemaker; Atrial Fib; CHF; GERD; High sv Cholesterol; Hypertension; Myocardial infarction; Pulmonary Embolism; R BUNDLE BRANCH BLOCK; Sleep Apnea; - Immunization history:: Last tetanus immunization: unknown. - Social history:: Smoking status: . - Ebola Screening: : Patient denies travel to an Ebola-affected area in the 21 days before illness onset. ROS: 13:09 Constitutional: Negative for fever, chills, and weight loss. kdr 13:09 Skin: Positive for laceration(s). Exam: 13:09 Constitutional: This is a well developed, well nourished patient who is awake, alert, kdr and in no acute distress. Head/Face: Normocephalic, atraumatic. 13:09 Skin: injury, laceration(s), the wound is approximately 2.5 cm(s), with a depth of .5 cm(s), of the dorsum of right foot. Vital Signs: 12:59 BP 130 / 73; Pulse 103; Resp 20; Pulse Ox 99% ; Weight 127.91 kg; Height 5 ft. 10 in. sv (177.80 cm); Pain 8/10; 12:59 Body Mass Index 40.46 (127.91 kg, 177.80 cm) sv Laceration: 14:12 Wound Repair of 2.5cm ( 1.0in ) subcutaneous laceration to dorsum of right foot. Distal kdr neuro/vascular/tendon intact. Anesthesia: Local anesthetic administered with 0.25% marcaine, Local anesthetic administered with 0.25% marcaine. Wound prep: Extensive cleansing with betadine by al, Wound irrigation, Wound explored moderately, Copious irrigation. Skin closed with 6 3-0 Prolene using simple sutures and sterile technique. Dressed with Neosporin, 4x4's, Kerlix. Patient tolerated well. MDM: 14:12 Data reviewed: vital signs, nurses notes. Counseling: I had a detailed discussion with [facility] the patient and/or guardian regarding: the historical points, exam findings, and any diagnostic results supporting the discharge/admit diagnosis, the need for outpatient follow up. 14:14 Patient medically screened. [facility] 11/20 13:09 Order name: Prolene, Sutures: 3-0; Complete Time: 13:50 [facility] 11/20 13:09 Order name: Dressing - Wound; Complete Time: 14:17 [facility] 11/20 13:09 Order name: Gloves, Sterile; Complete Time: 13:47 [facility] 11/20 13:09 Order name: Setup Suture Tray; Complete Time: 13:47 [facility] Administered Medications: 13:55 Drug: Tetanus-Diphtheria Toxoid Adult 0.5 ml {Clinical Training Coordinator: [employer]. Exp: tw08/20/2020. Lot #: [id number]. } Route: IM; Site: right deltoid; 14:26 Follow up: Response: No adverse reaction tw2 13:55 Drug: KeFLEX 500 mg Route: PO; tw2 14:26 Follow up: Response: No adverse reaction tw2 14:27 Follow up: Response: No adverse reaction ae4 14:05 Drug: Lidocaine-Epinephrine -1%: (1:100,000) 5 ml Volume: 20 ml; Route: Infiltration; tw2 14:05 Drug: Bupivacaine (0.5 %) 5 mg Volume: 10 ml; Route: Infiltration; tw2 Disposition: 11/20/18 14:14 Discharged to Home. Impression: Laceration without foreign body, right foot. - Condition is Stable. - Discharge Instructions: Laceration Care, Adult, [id number]. - Prescriptions for Keflex 500 mg Oral Capsule - take 1 capsule by ORAL route every 8 hours for 10 days; 30 capsule. - Medication Reconciliation Form, Thank You Letter, Antibiotic Education form. - Follow up: Private Physician; When: 2 - 3 days; Reason: Wound Recheck, If symptoms return, Further diagnostic work-up, Recheck today's complaints, Continuance of care, Re-evaluation by your physician. - Problem is new. - Symptoms have improved. - Notes: Sutures out in 12 - 14 days Signatures: Mindy Pratt, RN RN sv Wali Arreola MD MD kdr Kerry Russell RN RN tw2 Jose Austin RN ae4 Corrections: (The following items were deleted from the chart) 14:28 14:14 11/20/2018 14:14 Discharged to Home. Impression: Laceration without foreign body, tw2 right foot. Condition is Stable. Forms are Medication Reconciliation Form, Thank You Letter, Antibiotic Education, Prescription Opioid Use. Follow up: Private Physician; When: 2 - 3 days; Reason: Wound Recheck, If symptoms return, Further diagnostic work-up, Recheck today's complaints, Continuance of care, Re-evaluation by your physician. Problem is new. Symptoms have improved. kdr
--- NOTE | 2018-11-20 14:15 | ER ---
Nurse's Notes [facility] Name: Marquis Nelson Age: 48 yrs Sex: Male : 1970 Arrival Date: 11/20/2018 Time: 12:58 Bed 5 Private MD: Diagnosis: Laceration without foreign body, right foot Presentation: 11/20 12:58 Presenting complaint: Patient states: right foot laceration with a knife today. Pt is sv on blood thinners. Transition of care: patient was not received from another setting of care. Complicating Factors: There are no complicating factors for this patient. Onset of symptoms was November 20, 2018. Initial Sepsis Screen: Does the patient meet any 2 criteria? No. Patient's initial sepsis screen is negative. Does the patient have a suspected source of infection? No. Patient's initial sepsis screen is negative. Care prior to arrival: None. 12:58 Method Of Arrival: Ambulatory sv 12:58 Acuity: THANH 3 sv 14:05 Risk Assessment: Do you want to hurt yourself or someone else? Patient reports no tw2 desire to harm self or others. Triage Assessment: 13:00 General: Appears in no apparent distress. uncomfortable, Behavior is calm, cooperative, sv appropriate for age. Pain: Complains of pain in right foot Pain currently is 8 out of 10 on a pain scale. Neuro: Level of Consciousness is awake, alert, obeys commands, Oriented to person, place, time, situation, Gait is steady. Respiratory: Respiratory effort is even, unlabored, Respiratory pattern is regular, symmetrical. Derm: Skin is pink, warm \T\ dry. Injury Description: Laceration sustained to dorsum of right foot is contaminated, 0.5 to 2.5 cm long, was sustained 30-60 minutes ago. is bleeding a small amount a dressing was applied. Historical: - Allergies: 12:59 Beta Blockers (sensitive/hypotension); sv 12:59 Flomax; sv 12:59 Ibuprofen; sv 12:59 Neurontin; sv 12:59 Remeron; sv 12:59 Skelaxin; sv 12:59 Spironolactone; sv 12:59 Stadol; sv 12:59 tramadol; sv 12:59 Trazodone; sv - PMHx: 12:59 AAA; ADD/ADHD; Anemia; Anxiety; Kidney stones; Pacemaker; Atrial Fib; CHF; GERD; High sv Cholesterol; Hypertension; Myocardial infarction; Pulmonary Embolism; R BUNDLE BRANCH BLOCK; Sleep Apnea; - Immunization history:: Last tetanus immunization: unknown. - Social history:: Smoking status: . - Ebola Screening: : Patient denies travel to an Ebola-affected area in the 21 days before illness onset. Screenin:04 Abuse screen: Denies threats or abuse. Nutritional screening: No deficits noted. tw2 Tuberculosis screening: No symptoms or risk factors identified. Fall Risk None identified. Assessment: 14:03 General: Appears in no apparent distress. obese, Behavior is anxious. Pain: Complains tw2 of pain in right foot. Neuro: Level of Consciousness is awake, alert, obeys commands, Oriented to person, place, time, situation. Cardiovascular: Patient's skin is warm and dry. Respiratory: Airway is patent Respiratory effort is even, unlabored, Respiratory pattern is regular, symmetrical. GI: No signs and/or symptoms were reported involving the gastrointestinal system. : No signs and/or symptoms were reported regarding the genitourinary system. EENT: No signs and/or symptoms were reported regarding the EENT system. Derm: No signs and/or symptoms reported regarding the dermatologic system. Musculoskeletal: Range of motion: intact in all extremities. Injury Description: Laceration sustained to right foot. 14:27 Reassessment: Patient appears in no apparent distress at this time. Patient and/or tw2 family updated on plan of care and expected duration. Pain level reassessed. Patient is alert, oriented x 3, equal unlabored respirations, skin warm/dry/pink. Vital Signs: 12:59 BP 130 / 73; Pulse 103; Resp 20; Pulse Ox 99% ; Weight 127.91 kg; Height 5 ft. 10 in. sv (177.80 cm); Pain 8/10; 12:59 Body Mass Index 40.46 (127.91 kg, 177.80 cm) sv ED Course: 12:58 Patient arrived in ED. mr 12:58 Triage completed. sv 13:00 Arm band placed on. sv 13:00 Bed in low position. Call light in reach. Adult w/ patient. Pulse ox on. NIBP on. tw2 13:07 Wali Arreola MD is Attending Physician. kdr 13:46 Kerry Russell RN is Primary Nurse. tw2 14:05 Assist provider with laceration repair on dorsum of right foot using sutures. Set up tw2 tray. Performed by Wali Arreola MD Patient tolerated well. 14:17 Dressings: Kerlix X 1; right foot 4X4s X 1; right foot. Wound care: to laceration ms located on dorsum of right foot was cleaned with Betadine, dressed with Neosporin, 4X4s, Kerlix. 14:27 Patient did not have IV access during this emergency room visit. tw2 Administered Medications: 13:55 Drug: Tetanus-Diphtheria Toxoid Adult 0.5 ml {Prevention Coordinator: [employer]. Exp: tw2 08/20/2020. Lot #: [id number]. } Route: IM; Site: right deltoid; 14:26 Follow up: Response: No adverse reaction tw2 13:55 Drug: KeFLEX 500 mg Route: PO; tw2 14:26 Follow up: Response: No adverse reaction tw2 14:27 Follow up: Response: No adverse reaction ae4 14:05 Drug: Lidocaine-Epinephrine -1%: (1:100,000) 5 ml Volume: 20 ml; Route: Infiltration; tw2 14:05 Drug: Bupivacaine (0.5 %) 5 mg Volume: 10 ml; Route: Infiltration; tw2 Outcome: 14:14 Discharge ordered by . kdr 14:27 Discharged to home via wheelchair, with family. tw2 14:27 Condition: stable 14:27 Discharge instructions given to patient, family, Instructed on discharge instructions, follow up and referral plans. medication usage, wound care, Demonstrated understanding of instructions, follow-up care, medications, wound care, Prescriptions given X 1. 14:28 Patient left the ED. tw2 Signatures: Mindy Pratt RN RN sv Rittger, Kevin, MD MD kdr Rivera, Mary mr Solis, Maria ms Wise, Tara, RN RN tw2 Jose Austin RN RN ae4
--- OUTSIDE RECORDS SUMMARY | 2018-11-20 14:54 | XMS REPORT | Clinical Summary ---
:1970 Author Organization [facility] Address [address] [place] [address] Care Team Providers Name Role Phone Asked, [...] Jules MD 01/23/2018 Intake Access N/A after 11/19/2017 Social History Tobacco Use Types Packs/Day Years [...] procedure are in the results section. after 11/19/2017 Results POC glucose (01/29/2018 6:14 AM CDT)Only the most recent of21 resultswithin the time period is included. POC glucose 132 (H) 65 - 99 mg/dL [facility] DEPARTMENT OF Comment: PATHOLOGY AND Meter ID: [id number] [employer] MEDICINE Clark Driver: Willie Márquez Specimen Performing Organization Address City/State/[facility] Phone Number [facility] DEPARTMENT OF PATHOLOGY AND [address] [place] [phone] [facility] Prothrombin time with INR (01/28/2018 11:17 AM CDT)Only the most recent of5 resultswithin the time period is included. Prothrombin time 23.2 (H) 12.0 - 15.0 [facility] DEPARTMENT OF sec PATHOLOGY AND GENOMIC MEDICINE INR 2.0 [facility] DEPARTMENT OF Comment: PATHOLOGY AND The International Normalized Ratio (INR) is a therapeutic GENOMIC MEDICINE monitoring tool for patients who are stable on oral anticoagulant therapy. An INR of 2.0-3.0 is suggested for deep vein thrombosis/pulmonary embolism. Specimen Blood Performing Organization Address City/[facility] Phone Number [facility] DEPARTMENT OF PATHOLOGY AND [address] [place] [phone] [employer] [facility] Estimated GFR (01/25/2018 5:50 AM CDT) GFR Non Af Amer 90 mL/min/1.73 [facility] DEPARTMENT OF m2 PATHOLOGY AND GENOMIC MEDICINE GFR Af Amer >90 mL/min/1.73 [facility] DEPARTMENT OF Comment: m2 PATHOLOGY AND Chronic [...] Americans. Specimen Plasma specimen Performing Organization Address City/State/[facility] Phone Number [facility] DEPARTMENT OF PATHOLOGY AND [address] [place] [address] GENOMIC MEDICINE CBC with platelet and differential (01/25/2018 5:50 AM CDT) WBC 13.93 (H) 4.50 - 11.00 [facility] DEPARTMENT OF k/uL PATHOLOGY AND GENOMIC MEDICINE RBC 4.88 4.40 - 6.00 [facility] DEPARTMENT OF m/uL PATHOLOGY AND GENOMIC MEDICINE HGB 12.7 (L) 14.0 - 18.0 [facility] DEPARTMENT OF g/dL PATHOLOGY AND GENOMIC MEDICINE HCT 39.4 (L) 41.0 - 51.0 % [facility] DEPARTMENT OF PATHOLOGY AND GENOMIC MEDICINE MCV 80.7 (L) 82.0 - 100.0 [facility] DEPARTMENT OF fL PATHOLOGY AND GENOMIC MEDICINE MCH 26.0 (L) 27.0 - 34.0 [facility] DEPARTMENT OF PATHOLOGY AND GENOMIC MEDICINE MCHC 32.2 31.0 - 37.0 [facility] DEPARTMENT OF g/dL PATHOLOGY AND GENOMIC MEDICINE RDW - SD 47.6 37.0 - 55.0 [facility] DEPARTMENT OF NV PATHOLOGY AND GENOMIC MEDICINE MPV 9.6 8.8 - 13.2 [facility] DEPARTMENT OF PATHOLOGY AND GENOMIC MEDICINE Platelet count 281 150 - 400 [facility] DEPARTMENT OF k/uL PATHOLOGY AND GENOMIC MEDICINE Nucleated RBC 0.00 /100 WBC [facility] DEPARTMENT OF PATHOLOGY AND GENOMIC MEDICINE Neutrophils 69.6 (H) 39.0 - 69.0 % [facility] DEPARTMENT OF PATHOLOGY AND GENOMIC MEDICINE Lymphocytes 20.5 (L) 25.0 - 45.0 % [facility] DEPARTMENT OF PATHOLOGY AND GENOMIC MEDICINE Monocytes 7.8 0.0 - 10.0 % [facility] DEPARTMENT OF PATHOLOGY AND GENOMIC MEDICINE Eosinophils 0.9 0.0 - 5.0 % [facility] DEPARTMENT OF PATHOLOGY AND GENOMIC MEDICINE Basophils 0.4 0.0 - 1.0 % [facility] DEPARTMENT OF PATHOLOGY AND GENOMIC MEDICINE Immature granulocytes 0.8Comment: 0.0 - 1.0 % [facility] DEPARTMENT OF "Immature PATHOLOGY AND granulocytes" GENOMIC MEDICINE (promyelocytes , myelocytes, metamyelocytes ) Specimen Blood Performing Organization Address City/[facility] Phone Number [facility] DEPARTMENT OF PATHOLOGY AND [address] [place] [phone] [facility] MEDICINE Basic metabolic panel (01/25/2018 5:50 AM CDT) Pathologist [facility] Sodium 137 135 - 148 mEq/L [facility] DEPARTMENT OF PATHOLOGY AND GENOMIC MEDICINE Potassium 3.9 3.5 - 5.0 mEq/L [facility] DEPARTMENT OF PATHOLOGY AND GENOMIC MEDICINE Chloride 98 98 - 112 mEq/L [facility] DEPARTMENT OF PATHOLOGY AND GENOMIC MEDICINE CO2 26 24 - 31 mEq/L [facility] DEPARTMENT OF PATHOLOGY AND GENOMIC MEDICINE Anion gap 13@ANIO 7 - 15 mEq/L [facility] DEPARTMENT OF PATHOLOGY AND GENOMIC MEDICINE BUN 16 6 - 20 mg/dL [facility] DEPARTMENT OF PATHOLOGY AND GENOMIC MEDICINE Creatinine 0.9 0.7 - 1.2 mg/dL [facility] DEPARTMENT OF PATHOLOGY AND GENOMIC MEDICINE Glucose 154 (H) 65 - 99 mg/dL [facility] DEPARTMENT OF PATHOLOGY AND GENOMIC MEDICINE Calcium 9.7 8.3 - 10.2 mg/dL [facility] DEPARTMENT OF PATHOLOGY AND GENOMIC MEDICINE Specimen Plasma specimen Performing Organization Address [facility] Phone Number [facility] DEPARTMENT OF PATHOLOGY AND [address] [place] [phone] [facility] ECG 12 lead (01/24/2018 7:11 PM CDT) Ventricular rate 94 [facility] MUSE Atrial rate 94 [facility] MUSE [place] interval 162 [facility] MUSE QRSD interval 146 [facility] MUSE QT interval 414 [facility] MUSE QTC interval 517 [facility] MUSE P axis 1 33 [facility] MUSE QRS axis 1 -16 [facility] MUSE T wave axis 17 [facility] MUSE EKG impression Normal sinus rhythm-Right bundle branch block-Lateral infarct ( cited on or before 30-JUL-2017)-Inferior infarct (cited on or before 27-JUL-2017 )-Abnormal ECG-In automated comparison with ECG of 30-JUL-2017 09:06,-No significant change was [facility] MUSE found- Specimen Performing Organization Address City/[facility]code Phone Number [facility] MUSE [address] [place] [address] after 11/19/2017 Insurance Payer Benefit Plan / Subscriber ID Effective Phone Address Type Group Dates COMMERCIAL MISC MISC COMMERCIAL xxxxxxxxxxxx 2017-Prese Commercial nt MISC MEDICAID MISC MEDICAID xxxxxxxxxxxx 2017-Prese HMO REPLACEMENT REPLACEMENT nt Advance Directives Patient has advance care planning documents, and code status on file. For more information, please contact:[place] [address] Code Status Date Activated Date Inactivated Comments Full Code 01/24/2018 5:07 PM 01/29/2018 3:21 PM Code Status decision reached by: Patient Full Code 07/27/2017 10:23 AM 07/31/2017 4:58 PM Code Status decision reached by: Patient Full Code 07/27/2017 5:07 AM 07/27/2017 10:23 AM Code Status decision reached by: Patient
--- OUTSIDE RECORDS SUMMARY | 2018-11-20 14:54 | XMS REPORT | Clinical Summary ---
:1970 Author Organization [facility] Address [address] [place] [address] Care Team Providers Name Role Phone Mark [...] INFLUENZA VACCINE 03/23/2018 Implants Implanted Type Area Informaticist Device Shelf Model / Identifier Expiration Date Serial / Lot [id number] Implanted: Qty: 1 on 12/05/2015 Results Not on fileafter 11/19/2017 Advance Directives For more information, please contact:[place] [id number] [place], [place] [phone] Code Status Date Activated Date Inactivated Comments [...]
--- OUTSIDE RECORDS SUMMARY | 2018-11-20 14:58 | XMS REPORT | Continuity of Care Document ---
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 [place] Congestive heart Resolved Problem 05/20/2016 2L fluid failure<sup>1</sup> restrictio [place] n/24hrs Diabetes Resolved Problem 05/20/2016 [facility] Hypercholesteremia Resolved Problem 05/20/2016 [facility] Hypertension Resolved Problem 05/20/2016 [facility] Kidney stone Resolved Problem 05/20/2016 [facility] Heart Resolved Problem 05/20/2016 December 04, attack<sup>2</sup> 2016 [place] Bundle branch block, Resolved Problem 05/20/2016 right [place] Sleep apnea Resolved Problem 05/20/2016 [facility] TUBULO-INTERSTITIAL Active [facility] NEPHRITIS, NOT [facility] [place] CHEST PAIN, Active [facility] UNSPECIFIED [place] Medications Medication Details Route Status Patient Ordering Order Source Instructions Provider Date Aspirin 81 mg, 1 tab, Inactive Route: PO, Drug 2015 [place] form: ECTAB, ONCE, Dosing Weight 128.636, kg, Priority: STAT, Start date: 05/17/16 17:16:00 PHOTOGRAPHER ASSISTANT, Stop date: 05/17/16 17:16:00 CSTNotes: Do not crush or chew. (Same As: Ecotrin) Saline Flush 10 mL, Route: Inactive 0.9% IVP, Drug Form: 2015 [place] INJ, Dosing Weight 128.636, kg, PRN, PRN Line Flush, Start date: 05/17/16 15:48:00 PHOTOGRAPHER ASSISTANT, Duration: 30 day, Stop date: 06/16/16 15:47:00 CSTNotes: (Same as: BD Posiflush) Plavix 75 mg, 1 tab, No Longer Route: PO, Drug Active 2015 [place] form: TAB, Daily, Dosing Weight 131.7, kg, Start date: 05/07/16 9:00:00 PHOTOGRAPHER ASSISTANT, Duration: 30 day, Stop date: 06/05/16 9:00:00 CSTNotes: (Same As: Plavix) metoprolol 25 mg 25 mg=1 tab, PO, Active oral tablet, Daily, # 30 tab, 2015 [place] extended release 0 Refill(s) Protonix 40 mg, 1 tab, Inactive Route: PO, Drug 2015 [place] form: ECTAB, Before Dinner, Dosing Weight 131.7, kg, Start date: 05/06/16 16:30:00 PHOTOGRAPHER ASSISTANT, Duration: 30 day, Stop date: 06/04/16 16:30:00 CSTNotes: Tablet should not be chewed or crushed. (Same as: Protonix) Lisinopril 2.5 mg, 0.5 tab, Inactive Route: PO, Drug 2015 [place] form: TAB, Daily, Dosing Weight 131.7, kg, Start date: 05/06/16 9:00:00 PHOTOGRAPHER ASSISTANT, Duration: 30 day, Stop date: 06/04/16 9:00:00 CSTNotes: (Same as: Prinivil, Zestril) Aspirin 325 MG 325 mg, 1 tab, Inactive Oral Tablet Route: PO, Drug 2015 [place] form: TAB, Daily, Dosing Weight 127.273, kg, Start date: 05/06/16 9:00:00 PHOTOGRAPHER ASSISTANT, Duration: 30 day, Stop date: 06/04/16 9:00:00 CSTNotes: Take with food. atorvastatin 40 40 mg=1 tab, PO, Active mg oral tablet Bedtime, # 90 2015 [place] tab, 1 Refill(s) Alprazolam 1 MG 1 mg, 2 tab, No Longer Oral Tablet Route: PO, Drug Active 2015 [place] [Xanax] form: TAB, Q8H, Dosing Weight 131.7, kg, PRN Anxiety, Start date: 05/05/16 22:49:00 PHOTOGRAPHER ASSISTANT, Duration: 30 day, Stop date: 06/04/16 22:48:00 CSTNotes: With food or milk (Same as: Xanax) Lipitor 80 mg, 2 tab, No Longer Route: PO, Drug Active 2015 [place] form: TAB, Bedtime, Dosing Weight 127.273, kg, Start date: 05/05/16 21:00:00 PHOTOGRAPHER ASSISTANT, Duration: 30 day, Stop date: 06/03/16 21:00:00 CSTNotes: (Same as: Lipitor) Clindamycin 300 mg, 2 cap, No Longer Route: PO, Drug Active 2015 [place] form: CAP, ABXQ6H, Dosing Weight 127.273, kg, Start date: 05/05/16 21:00:00 PHOTOGRAPHER ASSISTANT, Stop date: 06/04/16 15:00:00 CSTNotes: (Same As: Cleocin) Saline Flush 10 ml, Route: No Longer 0.9% IVP, Drug Form: Active 2015 [place] INJ, Dosing Weight 127.273, kg, Q12H, Start date: 05/05/16 21:00:00 PHOTOGRAPHER ASSISTANT, Duration: 30 day, Stop date: 06/04/16 9:00:00 CSTNotes: preservative free. Insulin, Aspart, 1 unit, 0.01 mL, No Longer Human Route: SUB-Q, Active 2015 [place] Drug form: SOLN, Bedtime, Dosing Weight 127.273, kg, PRN Blood Glucose Results, Start date: 05/05/16 20:27:00 PHOTOGRAPHER ASSISTANT, Duration: 30 day, Stop date: 06/04/16 20:26:00 CSTNotes: Roll in palms of hands gently; Do not shake vigorously. (Same as: NovoLOG) "single patient use only" WASTE: F/P - Black; E - Municipal Trash Bin Stable for 28 days at room temperature. Expires in days from Da te Glucagon 1 mg, Route: IM, No Longer Drug form: Active 2015 [place] PDR/INJ, PRN, Dosing Weight 127.273, kg, PRN Blood Glucose Results, Start date: 05/05/16 20:27:00 PHOTOGRAPHER ASSISTANT, Duration: 30 day, Stop date: 06/04/16 20:26:00 PHOTOGRAPHER ASSISTANT Dextrose 50% 12.5 gm, 25 mL, No Longer Syringe Route: IVP, Drug Active 2015 [place] Form: INJ, Dosing Weight 127.273, kg, PRN, PRN Blood Glucose Results, Start date: 05/05/16 20:27:00 PHOTOGRAPHER ASSISTANT, Duration: 30 day, Stop date: 06/04/16 20:26:00 PHOTOGRAPHER ASSISTANT Morphine 2 mg, 1 mL, No Longer Route: IVP, Drug Active 2015 [place] form: INJ, Q2H, Dosing Weight 127.273, kg, PRN as needed for chest pain, Priority: STAT, Start date: 05/05/16 20:00:00 PHOTOGRAPHER ASSISTANT, Duration: 30 day, Stop date: 06/04/16 19:59:00 CSTNotes: (Same as:MORPhine Sulfate) Plavix 75 mg, 1 tab, Inactive Route: PO, Drug 2015 [place] form: TAB, ONCE, Dosing Weight 127.273, kg, Priority: STAT, Start date: 05/05/16 19:58:00 PHOTOGRAPHER ASSISTANT, Stop date: 05/05/16 19:58:00 CSTNotes: (Same As: Plavix) Saline Flush 10 ml, Route: No Longer 0.9% IVP, Drug Form: Active 2015 [place] INJ, Dosing Weight 127.273, kg, PRN, PRN Line Flush, Start date: 05/05/16 19:55:00 PHOTOGRAPHER ASSISTANT, Duration: 30 day, Stop date: 06/04/16 19:54:00 CSTNotes: (Same as: BD Posiflush) Albuterol 0.833 3 ml, Route: No Longer MG/ML / NEB, Drug Form: Active 2015 [place] Ipratropium SOLN, Dosing [place] 0.167 Weight 127.273, MG/ML Inhalant kg, PRN, PRN Solution Respiratory Protocol, Start date: 05/05/16 19:55:00 PHOTOGRAPHER ASSISTANT, Duration: 30 day, Stop date: 06/04/16 19:54:00 CSTNotes: (Same as: Duoneb) Nystatin 100 1 appl, Route: No Longer UNT/MG Topical TOP, PRN, Drug Active 2015 [place] Powder form: PWDR, PRN For Fungal Prophylaxis, Start date: 05/05/16 19:55:00 PHOTOGRAPHER ASSISTANT, Duration: 30 day, Stop date: 06/04/16 19:54:00 [...] Volume: 500 mL, Start date: 05/05/16 19:43:00 PHOTOGRAPHER ASSISTANT, Duration: 30 day, Stop date: 06/04/16 19:42:00 PHOTOGRAPHER ASSISTANT Heparin 60 Route: IVP, PRN, No Longer unit/kg Bolus 5,800 unit, 5.8 Active 2015 [place] (Heparin Dosing mL, Drug form: Weight) INJ, PRN, Heparin Protocol, Start date: 05/05/16 19:43:00 PHOTOGRAPHER ASSISTANT Stop date: 06/04/16 19:42:00 PHOTOGRAPHER ASSISTANT Heparin 30 Route: IVP, PRN, No Longer unit/kg Bolus 2,900 unit, 2.9 Active 2015 [place] (Heparin Dosing mL, Drug form: Weight) INJ, PRN, Heparin Protocol, Start date: 05/05/16 19:43:00 PHOTOGRAPHER ASSISTANT Stop date: 06/04/16 19:42:00 PHOTOGRAPHER ASSISTANT Heparin - one 4,000 unit, 4 Inactive time bolus for mL, Route: IVP, 2016 [place] ACS Drug form: INJ, ONCE, Dosing Weight 127.273, kg, Priority: STAT, Start date: 05/05/16 19:43:00 PHOTOGRAPHER ASSISTANT, Stop date: 05/05/16 19:43:00 PHOTOGRAPHER ASSISTANT Morphine 4 mg, 1 mL, Inactive Route: IVP, Drug 2015 [place] form: INJ, ONCE, Dosing Weight 127.273, kg, Priority: STAT, Start date: 05/05/16 19:25:00 PHOTOGRAPHER ASSISTANT, Stop date: 05/05/16 19:25:00 CSTNotes: (Same as:MORPhine Sulfate) Nitroglycerin 1 inch, Route: Inactive 0.02 MG/MG TOP, Dosing 2015 [place] Topical Ointment Weight 127.273, kg, ONCE, STAT, Start date: 05/05/16 17:40:00 PHOTOGRAPHER ASSISTANT, Stop date: 05/05/16 17:40:00 PHOTOGRAPHER ASSISTANT Aspirin 81 MG 243 mg, Route: Inactive Chewable Tablet PO, Drug form: 2015 [place] CHEWTAB, ONCE, Dosing Weight 127.273, kg, Priority: STAT, Start date: 05/05/16 17:17:00 PHOTOGRAPHER ASSISTANT, Stop date: 05/05/16 17:17:00 PHOTOGRAPHER ASSISTANT Morphine 4 mg, Route: Inactive IVP, ONCE, 2015 [place] Dosing Weight 127.273, kg, Priority: STAT, Start date: 05/05/16 17:15:00 PHOTOGRAPHER ASSISTANT, Stop date: 05/05/16 17:15:00 PHOTOGRAPHER ASSISTANT Saline Flush 10 mL, Route: No Longer 0.9% IVP, Drug Form: Active 2015 [place] INJ, Dosing Weight 128.182, kg, PRN, PRN Line Flush, Start date: 05/05/16 16:55:00 PHOTOGRAPHER ASSISTANT, Duration: 30 day, Stop date: 06/04/16 16:54:00 CSTNotes: preservative free. Acetaminophen 1 - 2 tab, PO, No Longer 300 MG / Codeine Q4H, PRN Pain, X Active 2015 [place] Phosphate 30 MG 2 day, # 20 tab, Oral Tablet 0 Refill(s) [Tylenol with Codeine #3] Morphine 4 mg, 1 mL, Inactive Route: IVP, Drug 2015 [place] form: INJ, ONCE, Dosing Weight 128.182, kg, Priority: STAT, Start date: 04/25/16 19:51:00 CDT, Stop date: 04/25/16 19:51:00 CDTNotes: (Same as:MORPhine Sulfate) Zofran 4 mg, 2 mL, Inactive Route: IVP, Drug 2015 [place] form: INJ, ONCE, Dosing Weight 128.182, kg, Priority: STAT, Start date: 04/25/16 18:23:00 CDT, Stop date: 04/25/16 18:23:00 CDTNotes: (Same as: Zofran) MEDICATION WASTE Product Size: 4 mg Product Wasted: ___ mg Morphine 4 mg, 1 mL, Inactive Route: IVP, Drug 2015 [place] form: INJ, ONCE, Dosing Weight 128.182, kg, Priority: STAT, Start date: 04/25/16 18:23:00 CDT, Stop date: 04/25/16 18:23:00 CDTNotes: (Same as:MORPhine Sulfate) Saline Flush 10 mL, Route: Inactive 0.9% IVP, Drug Form: 2015 [place] INJ, Dosing Weight 129.091, kg, PRN, PRN Line Flush, Start date: 04/25/16 18:07:00 CDT, Duration: 30 day, Stop date: 05/25/16 17:06:00 CSTNotes: (Same as: BD Posiflush) Acetaminophen 1 tab, PO, Q6H, Active 300 MG / Codeine PRN Pain, X 5 2015 [place] Phosphate 30 MG day, # 20 tab, 0 Oral Tablet Refill(s) Morphine 4 mg, Route: Inactive IVP, ONCE, 2015 [place] Dosing Weight 129.091, kg, Priority: STAT, Start date: 03/05/16 8:44:00 CDT, Stop date: 03/05/16 8:44:00 CDT Ondansetron 4 mg, Route: Inactive IVP, Drug form: 2015 [place] INJ, ONCE, Dosing Weight 129.091, kg, Priority: STAT, Start date: 03/05/16 7:35:00 CDT, Stop date: 03/05/16 7:35:00 CDT Aspirin 324 mg, Route: Inactive PO, ONCE, Dosing 2015 [place] Weight 129.091, kg, Priority: STAT, Start date: 03/05/16 7:22:00 CDT, Stop date: 03/05/16 7:22:00 CDT Morphine 2 mg, Route: Inactive IVP, ONCE, 2015 [place] Dosing Weight 129.091, kg, Priority: STAT, Start date: 03/05/16 7:22:00 CDT, Stop date: 03/05/16 7:22:00 CDT Saline Flush 10 mL, Route: Inactive 0.9% IVP, Drug Form: 2015 [place] INJ, Dosing Weight 129.091, kg, PRN, PRN Line Flush, Start date: 03/05/16 7:22:00 CDT, Duration: 30 day, Stop date: 04/04/16 7:21:00 CDTNotes: (Same as: BD Posiflush) Dilaudid 0.5 mg, 0.5 mL, Inactive Route: IVP, Drug 2015 [place] form: INJ, ONCE, Dosing Weight 128.636, kg, Priority: STAT, Start date: 03/02/16 7:40:00 CDT, Stop date: 03/02/16 7:40:00 CDTNotes: Same as: Dilaudid Ketorolac 30 mg, 1 mL, Inactive Route: IVP, Drug 2015 [place] form: INJ, ONCE, Dosing Weight 128.636, kg, Priority: STAT, Start date: 03/02/16 5:25:00 CDT, Stop date: 03/02/16 5:25:00 CDTNotes: (Same as:Toradol) IV bolus must be given >15 seconds. Give IM administration slowly and deeply into the muscle. Not for use > 4 days MEDICATION WASTE Product Size: 30 mg Product Wasted: ___ mg Morphine 4 mg, 1 mL, Inactive Route: IVP, Drug 2015 [place] form: INJ, ONCE, Dosing Weight 128.636, kg, Priority: STAT, Start date: 03/02/16 5:25:00 CDT, Stop date: 03/02/16 5:25:00 CDTNotes: (Same as:MORPhine Sulfate) Ondansetron 4 mg, 2 mL, Inactive Route: IVP, Drug 2015 [place] form: INJ, ONCE, Dosing Weight 128.636, kg, Priority: STAT, Start date: 03/02/16 5:25:00 CDT, Stop date: 03/02/16 5:25:00 CDTNotes: (Same as: Zofran) MEDICATION WASTE Product Size: 4 mg Product Wasted: ___ mg Saline Flush 10 mL, Route: Inactive 0.9% IVP, Drug Form: 2015 [place] INJ, Dosing Weight 128.636, kg, PRN, PRN Line Flush, Start date: 03/02/16 5:25:00 CDT, Duration: 30 day, Stop date: 04/01/16 5:24:00 CDTNotes: (Same as: BD Posiflush) Sodium Chloride 1,000 mL, 2,000 Inactive 0.154 MEQ/ML ml/hr, Infuse 2015 [place] Injectable Over: 30 Solution minutes, Route: IV, 1,000, Drug form: INJ, ONCE, Priority: STAT, Dosing Weight 128.636 kg, Start date: 03/02/16 5:25:00 CDT, Duration: 1 doses or times, Stop date: 03/02/16 5:25:00 CDT Acetaminophen 1 tab, PO, Q6H, Active 300 MG / Codeine PRN Pain, # 28 2015 [place] Phosphate 30 MG tab, 0 Refill(s) Oral Tablet [Tylenol with Codeine #3] Protonix 40 mg, 1 tab, No Longer Route: PO, Drug Active 2015 [place] form: ECTAB, Before Breakfast, Dosing Weight 129.545, kg, Start date: 02/18/16 7:30:00 CDT, Duration: 30 day, Stop date: 03/18/16 7:30:00 CDTNotes: Tablet should not be chewed or crushed. (Same as: Protonix) Lipitor 80 mg, 2 tab, No Longer Route: PO, Drug Active 2015 [place] form: TAB, Bedtime, Dosing Weight 129.545, kg, Start date: 02/17/16 21:00:00 CDT, Duration: 30 day, Stop date: 03/17/16 21:00:00 CDTNotes: (Same as: Lipitor) Morphine 2 mg, 1 mL, No Longer Route: IVP, Drug Active 2015 [place] form: INJ, Q4H, Dosing Weight 129.545, kg, PRN Pain Score 7-10, Start date: 02/17/16 11:54:00 CDT, Duration: 30 day, Stop date: 03/18/16 11:53:00 CDTNotes: (Same as:MORPhine Sulfate) Lovenox 40 mg, 0.4 mL, No Longer Route: SUB-Q, Active 2015 [place] Drug form: INJ, [id number], Dosing Weight 129.545, kg, Start date: 02/17/16 10:00:00 CDT, Duration: 30 day, Stop date: 03/17/16 10:00:00 CDTNotes: (Same as: Lovenox) Lisinopril 2.5 mg, 0.5 tab, No Longer Route: PO, Drug Active 2015 [place] form: TAB, Daily, Dosing Weight 129.545, kg, Start date: 02/17/16 9:55:00 CDT, Duration: 30 day, Stop date: 03/18/16 9:00:00 CDTNotes: (Same as: Prinivil, Zestril) Imdur 30 mg, 1 tab, No Longer Route: PO, Drug Active 2015 [place] form: ERTAB, QAM, Dosing Weight 129.545, kg, Start date: 02/17/16 9:54:00 CDT, Duration: 30 day, Stop date: 03/18/16 9:00:00 CDTNotes: (Same as:Imdur) "Do Not Crush" Take on empty stomach/ full glass of water. Do not crush Plavix 75 mg, 1 tab, No Longer Route: PO, Drug Active 2015 [place] form: TAB, Daily, Dosing Weight 129.545, kg, Start date: 02/17/16 9:54:00 CDT, Duration: 30 day, Stop date: 03/18/16 9:00:00 CDTNotes: (Same As: Plavix) Aspirin 81 MG 81 mg, 1 tab, No Longer Enteric Coated Route: PO, Drug Active 2015 [place] Tablet form: ECTAB, Daily, Dosing Weight 129.545, kg, Start date: 02/17/16 9:54:00 CDT, Duration: 30 day, Stop date: 03/18/16 9:00:00 CDTNotes: Do not crush or chew. (Same As: Ecotrin) Zofran ODT 4 mg, 1 tab, No Longer Route: PO, Drug Active 2015 [place] form: TABDIS, Q12H, Dosing Weight 129.545, kg, PRN Nausea, Start date: 02/17/16 9:25:00 CDT, Duration: 30 day, Stop date: 03/18/16 9:24:00 CDTNotes: (Same as: Zofran ODT) Nitroglycerin 0.4 mg, 1 tab, No Longer 0.4 MG Route: SL, Drug Active 2015 [place] Sublingual form: TAB, Tablet Q5Min, Dosing [Nitrostat] Weight 129.545, kg, PRN Chest Pain, Start date: 02/17/16 9:25:00 CDT, Duration: 30 day, Stop date: 03/18/16 9:24:00 CDTNotes: (Same as:Nitroquick, Nitrostat) "Do Not Crush" Sublingual tablet Alprazolam 1 MG 1 mg, 1 tab, No Longer Oral Tablet Route: PO, Drug Active 2015 [place] [Xanax] form: TAB, Q8H, Dosing Weight 129.545, kg, PRN Anxiety, Start date: 02/17/16 9:23:00 CDT, Duration: 30 day, Stop date: 03/18/16 9:22:00 CDTNotes: With food or milk (Same as: Xanax) pneumococcal 0.5 mL, Route: Inactive capsular IM, Drug Form: 2016 [place] polysaccharide INJ, Daily, type 1 vaccine / [...] No Longer Disintegrating Q12H, PRN Active 2015 [place] Tablet [Zofran] Nausea, 0 Refill(s) Aspirin 81 MG 81 mg=1 tab, PO, Active Enteric Coated Daily, # 90 tab, 2015 [place] Tablet 3 Refill(s) Nitroglycerin 0.4 mg=1 tab, No Longer 0.4 MG SL, Q5Min, PRN Active 2015 [place] Sublingual Chest Pain, # Tablet 100 tab, 0 [Nitrostat] Refill(s) pantoprazole 40 40 mg=1 tab, PO, Active MG Enteric Daily, # 30 tab, 2016 [place] Coated Tablet 0 Refill(s) [Protonix] 24 HR Isosorbide 30 mg=1 tab, PO, Active Mononitrate 30 QAM, # 30 tab, 0 2015 [place] MG Extended Refill(s) Release Tablet [Imdur] Hydroxyzine 25 mg=1 tab, PO, No Longer Hydrochloride 25 Bedtime, PRN Active 2016 [place] MG Oral Tablet Sleep, # 30 tab, 0 Refill(s) Furosemide 20 MG 20 mg=1 tab, PO, Active Oral Tablet Daily, # 30 tab, 2016 [place] 0 Refill(s) Potassium 20 mEq=1 tab, Active Chloride 20 MEQ PO, Daily, # 90 2016 [place] Extended Release tab, 1 Refill(s) Tablet [Klor-Con] Alprazolam 1 MG 1 mg=1 tab, PO, Active Oral Tablet Q8H, PRN 2016 [place] [Xanax] Anxiety, 0 Refill(s) Metformin 1 tab, PO, BID, Active hydrochloride # 60 tab, 0 2015 [place] 500 MG / Refill(s) repaglinide 1 MG Oral Tablet Acetaminophen 1 tab, PO, Q6H, No Longer 300 MG / Codeine PRN Pain, # 28 Active 2016 [place] Phosphate 30 MG tab, 0 Refill(s) Oral Tablet [Tylenol with Codeine #3] lisinopril 2.5 2.5 mg=1 tab, Active mg oral tablet PO, Daily, # 30 2016 [place] tab, 0 Refill(s) clopidogrel 75 75 mg=1 tab, PO, Active MG Oral Tablet Daily, # 30 tab, 2016 [place] [Plavix] 0 Refill(s) atorvastatin 80 80 mg=1 tab, PO, Active MG Oral Tablet Bedtime, # 30 2016 [place] [Lipitor] tab, 0 Refill(s) Ceftriaxone 1 gm, Route: Inactive IVPB, Drug form: 2015 [place] PDR/INJ, ONCE, Dosing Weight 129.545, kg, Priority: STAT, Start date: 02/17/16 7:01:00 CDT, Stop date: 02/17/16 7:01:00 CDT Dilaudid 0.5 mg, Route: Inactive IVP, ONCE, 2015 [place] Dosing Weight 129.545, kg, Priority: STAT, Start date: 02/17/16 6:28:00 CDT, Stop date: 02/17/16 6:28:00 CDT Zofran 4 mg, Route: Inactive IVP, Drug form: 2015 [place] INJ, ONCE, Dosing Weight 129.545, kg, Priority: STAT, Start date: 02/17/16 5:32:00 CDT, Stop date: 02/17/16 5:32:00 CDT Dilaudid 0.5 mg, Route: Inactive IVP, ONCE, 2015 [place] Dosing Weight 129.545, kg, Priority: STAT, Start date: 02/17/16 5:32:00 CDT, Stop date: 02/17/16 5:32:00 CDT Saline Flush 10 mL, Route: Inactive 0.9% IVP, Drug Form: 2015 [place] INJ, kg, PRN, PRN Line Flush, Start date: 02/17/16 5:19:00 CDT, Duration: 30 day, Stop date: 03/18/16 5:18:00 CDTNotes: (Same as: BD Posiflush) Allergies, Adverse Reactions, Alerts Substance Category Reaction Severity Reaction Status Date Comments Source type Reported beta Assertion Drug Active blockers allergy [place] Flomax Assertion Drug Active allergy [place] Stadol Assertion Drug Active MH allergy [place] traMADol Assertion Drug Active MH allergy [place] Immunizations Immunization Date Given Site Status Last Updated Comments Source pneumococcal 02/17/2016 Not Given [facility] 23-valent vaccine Results Order Name Results Value Reference Date Interpretation Comments Source Range URINE AND UA Mucus Few /LPF None Seen 05/17 STOOL /LPF [place] URINE AND UA Leuk Est Negative Negative 05/17 STOOL [place] (05/17/16 5:16 PM) URINE AND UA Bili Negative Negative 05/17 STOOL [place] *NA* (05/17/16 5:16 PM) URINE AND UA Ketones Negative Negative 05/17 STOOL mg/dL mg/dL [place] URINE AND UA Nitrite Negative Negative 05/17 STOOL [place] (05/17/16 5:16 PM) URINE AND UA 0.2 EU/dL 0.1 - 1.0 05/17 STOOL Urobilinogen [place] URINE AND UA Turbidity Clear Clear 05/17 STOOL [place] (05/17/16 5:16 PM) URINE AND UA Blood Negative Negative 05/17 STOOL [place] (05/17/16 5:16 PM) URINE AND UA Glucose Negative Negative 05/17 [place]OOL mg/dL mg/dL [place] URINE AND UA Protein Negative Negative 05/17 [place]OOL mg/dL mg/dL [place] URINE AND UA pH 6.5 5.0 - 8.0 05/17 STOOL [place] URINE AND UA Spec Grav 1.020 <=1.030 05/17 STOOL [place] URINE AND UA Color Yellow Yellow 05/17 STOOL [place] *NA* (05/17/16 5:16 PM) URINE AND UA Sq Epi Rare /LPF Few /LPF 05/17 STOOL [place] URINE AND UA Bacteria Occasional None Seen 05/17 STOOL /HPF /HPF [place] URINE AND UA RBC 0-2 /HPF 0 - 2 05/17 STOOL [place] URINE AND UA WBC 0-2 /HPF None Seen 05/17 STOOL /HPF /2015 [place] CARDIAC Total CK 74 unit/L 12 - 191 05/17 ENZYMES [place] CARDIAC CK MB 0.8 ng/mL 0.5 - 3.6 05/17 ENZYMES [place] CARDIAC Troponin-I null 0.00 - 05/17 ENZYMES 0.40 [place] CARDIAC CK-MB INDEX 1.1 0.0 - 2.5 05/17 [place] CHEM PANEL eGFR 79 05/17 Result Comment: [...] is not recommended in the following populations: [place] 3m2 Individuals with unstable creatinine concentrations, including [...] Lvl 106 meq/L 95 - 109 05/17 [place] CHEM PANEL CO2 28 meq/L 24 - 32 05/17 [place] CHEM PANEL Calcium Lvl 8.8 mg/dL 8.5 - 10.5 05/17 [place] CHEM PANEL Bili Total 0.4 mg/dL 0.2 - 1.3 05/17 [place] CHEM PANEL AGAP 9.7 meq/L 10.0 - 05/17 20.0 [place] CHEM PANEL B/C Ratio 14 6 - 25 05/17 [place] CHEM PANEL ASPARTATE 14 unit/L 0 - 37 05/17 MH [place] CHEM PANEL Total 7.7 g/dL 6.4 - 8.4 05/17 [place] CHEM PANEL Globulin 4.4 g/dL 2.7 - 4.2 05/17 [place] CHEM PANEL A/G Ratio 0.8 0.7 - 1.6 11 [place] CHEM PANEL Glucose Lvl 148 mg/dL 70 - 99 05/17 [place] CHEM PANEL BUN 15 mg/dL 7 - 22 05/17 [place] CHEM PANEL Creatinine 1.11 mg/dL 0.50 - 05/17 MH Lvl 1.40 [place] CHEM PANEL Sodium Lvl 140 meq/L 135 - 145 05/17 [place] CHEM PANEL Potassium 3.7 meq/L 3.5 - 5.1 05/17 MH Lvl [place] CHEM PANEL Albumin Lvl 3.3 g/dL 3.5 - 5.0 05/17 [place] CHEM PANEL Alk Phos 129 unit/L 39 - 136 05/17 [place] CHEM PANEL ALANINE 30 unit/L 0 - 65 05/17 AMINOTRANS [place] RAS HEMATOLOGY MPV 7.3 fL 7.4 - 10.4 05/17 [place] HEMATOLOGY Platelet 281 K/CMM 133 - 450 05/17 [place] HEMATOLOGY RBC X 10x6 5.30 M/CMM 4.70 - 05/17 MH 6.10 [place] HEMATOLOGY WBC X 10x3 10.5 K/CMM 3.7 - 10.4 05/17 [place] HEMATOLOGY Hgb 12.4 g/dL 14.0 - 05/17 MH 18.0 [place] HEMATOLOGY Hct 36.8 % 42.0 - 05/17 MH 54.0 [place] HEMATOLOGY MCV 69.4 fL 80.0 - 05/17 MH 94.0 [place] HEMATOLOGY MCH 23.4 pg 27.0 - 05/17 MH 31.0 [place] HEMATOLOGY MCHC 33.7 g/dL 32.0 - 05/17 MH 36.0 /2015 [place] HEMATOLOGY RDW 17.1 % 11.5 - 05/17 MH 14.5 /2015 [place] HEMATOLOGY aPTT 35.4 s 22.9 - 05/17 35.8 /2015 [place] HEMATOLOGY PROTIME 13.1 s 12.0 - 05/17 MH 14.7 /2015 [place] HEMATOLOGY INR 0.97 0.85 - 05/17 MH 1.17 /2015 [place] HEMATOLOGY Eosinophils 1.1 % 0.0 - 4.0 05/17 [place] HEMATOLOGY Monocytes 6.7 % 2.0 - 12.0 05/17 [place] HEMATOLOGY Segs-Bands # 7.2 K/CMM 1.5 - 8.1 05/17 [place] HEMATOLOGY Basophils 1.1 % 0.0 - 1.0 05/17 [facility] Lymphocytes 2.4 K/CMM 1.0 - 5.5 05/17 # /2015 [facility]EMAT[facility] Monocytes # 0.7 K/CMM 0.0 - 0.8 05/17 [facility] Eosinophils 0.1 K/CMM 0.0 - 0.5 05/17 # /2015 [facility]EMAT[facility] Microcyte 2+ None Seen 05/17 [facility] *ABN* (05/17/16 4:01 PM) HEMATOLOGY Basophils # 0.1 K/CMM 0.0 - 0.2 05/17 [facility] Lymphocytes 22.3 % 20.0 - 05/17 40.0 [facility]AT[facility] Segs 68.8 % 45.0 - 05/17 75.0 [facility] Chest 1view Chest 1view Portable chest: The cardiomediastinal silhouette and pulmonary vasculature are within normal limits. The lungs and pleural spaces are clear. There are no acute osseous abnormalities. There is no significant change compared to 05/05/2016. 05/17 - [facility] DX DX /2015 - [place] IMPRESSION: Read by: Rizwan Barnhart MD Dictated Date/time: 05/17/16 16:37 Electronically Signed by: Rizwan Barnhart MD 05/17/16 16:38 FINAL REPORT No acute radiographic abnormality in the chest. [id number] CARDIAC Troponin-I null 0.00 - 05/06 ENZYMES 0.40 [facility] aPTT 50.1 s 22.9 - 05/06 MH 35.8 2016 [facility] ELECTROLYTE AGAP 10.8 meq/L 10.0 - 05/06 S 20.0 [facility] ELECTROLYTE CO2 28 meq/L 24 - 32 05/06 S [facility] ELECTROLYTE Chloride Lvl 105 meq/L 95 - 109 05/06 S [facility] ELECTROLYTE Calcium Lvl 8.7 mg/dL 8.5 - 10.5 05/06 S [facility] ELECTROLYTE eGFR 103 05/06 Result Comment: The [...] is not recommended in the following populations: [address] Individuals with unstable creatinine concentrations, including [...] 123 mg/dL 70 - 99 05/06 S [place] ELECTROLYTE Creatinine 0.86 mg/dL 0.50 - 05/06 S Lvl 1.40 [facility] ELECTROLYTE BUN 18 mg/dL 7 - 22 05/06 S [place] ELECTROLYTE Potassium 3.8 meq/L 3.5 - 5.1 05/06 S Lvl [place] ELECTROLYTE Sodium Lvl 140 meq/L 135 - 145 05/06 S [place] HEMATOLOGY Microcyte 2+ None Seen 05/06 [facility] *ABN* (05/06/16 2:42 AM) HEMATOLOGY Eosinophils 0.2 K/CMM 0.0 - 0.5 05/06 # /2015 [facility] HEMATOLOGY Monocytes # 0.8 K/CMM 0.0 - 0.8 05/06 [place] HEMATOLOGY Monocytes 7.9 % 2.0 - 12.0 05/06 [place] HEMATOLOGY Lymphocytes 2.5 K/CMM 1.0 - 5.5 05/06 MH # /2016 [place] HEMATOLOGY Segs-Bands # 6.5 K/CMM 1.5 - 8.1 05/06 [place] HEMATOLOGY Basophils 0.4 % 0.0 - 1.0 05/06 MH [place] HEMATOLOGY Eosinophils 1.7 % 0.0 - 4.0 05/06 /2015 [place] HEMATOLOGY Lymphocytes 24.8 % 20.0 - 05/06 MH 40.0 [place] HEMATOLOGY Segs 65.2 % 45.0 - 05/06 MH 75.0 [place] HEMATOLOGY RBC X 10x6 5.11 M/CMM 4.70 - 05/06 MH 6.10 [place] HEMATOLOGY Hct 36.2 % 42.0 - 05/06 MH 54.0 [place] HEMATOLOGY Hgb 11.8 g/dL 14.0 - 05/06 MH 18.0 [place] HEMATOLOGY Platelet 272 K/CMM 133 - 450 05/06 [place] HEMATOLOGY RDW 17.1 % 11.5 - 05/06 14. [place] HEMATOLOGY MPV 7.8 fL 7.4 - 10.4 05/06 /2015 [place] HEMATOLOGY WBC X 10x3 9.9 K/CMM 3.7 - 10.4 05/06 [place] HEMATOLOGY MCHC 32.5 g/dL 32.0 - 05/06 MH 36.0 [place] HEMATOLOGY MCH 23.0 pg 27.0 - 05/06 31.0 [place] HEMATOLOGY MCV 70.8 fL 80.0 - 05/06 94.0 [place] HEMATOLOGY PROTIME 13.4 s 12.0 - 05/06 14. [place] HEMATOLOGY INR 1.00 0.85 - 05/06 MH 1.17 [place] HEMATOLOGY aPTT 49.1 s 22.9 - 05/06 35.8 [place] URINE AND UA Bacteria None Seen None Seen 05/06 STOOL [place] (05/05/16 10:09 PM) URINE AND UA Blood Negative Negative 05/06 STOOL [place] (05/05/16 10:09 PM) URINE AND UA RBC 0-2 /HPF 0 - 2 05/06 [place] URINE AND UA WBC None Seen None Seen 05/06 STOOL [place] (05/05/16 10:09 PM) URINE AND UA Sq Epi None Seen Few 05/06 STOOL [place] (05/05/16 10:09 PM) URINE AND UA Leuk Est Negative Negative 05/06 STOOL [place] (05/05/16 10:09 PM) URINE AND UA 0.2 EU/dL 0.1 - 1.0 05/06 [facility] Urobilinogen [place] URINE AND UA Nitrite Negative Negative 05/06 STOOL [place] (05/05/16 10:09 PM) URINE AND UA Color Yellow Yellow 05/06 [place] *NA* (05/05/16 10:09 PM) URINE AND UA Glucose Negative Negative 05/06 STOOL [place] (05/05/16 10:09 PM) URINE AND UA Bili Negative Negative 05/06 [place] *NA* (05/05/16 10:09 PM) URINE AND UA Ketones Negative Negative 05/06 [place] *NA* (05/05/16 10:09 PM) URINE AND UA Protein Negative Negative 05/06 STOOL [place] (05/05/16 10:09 PM) URINE AND UA pH 6.0 5.0 - 8.0 05/06 [place] URINE AND UA Turbidity Clear Clear 05/06 [place] (05/05/16 10:09 PM) URINE AND UA Spec Grav >=1.030 <=1.030 05/06 [place] *ABN* (05/05/16 10:09 PM) BACTERIAL - MRSA by PCR Negative 05/06 SEROLOGY [place] (05/05/16 10:06 PM) HEMATOLOGY Basophils # 0.1 K/CMM 0.0 - 0.2 05/06 [place] HEMATOLOGY Microcyte 2+ None Seen 05/06 [place] *ABN* (05/05/16 9:38 PM) HEMATOLOGY Eosinophils 1.4 % 0.0 - 4.0 05/06 [place] HEMATOLOGY Basophils 0.7 % 0.0 - 1.0 05/06 [place] HEMATOLOGY Segs-Bands # 7.1 K/CMM 1.5 - 8.1 05/06 /2015 [place] HEMATOLOGY Lymphocytes 24.8 % 20.0 - 05/06 MH 40.0 /2015 [place] HEMATOLOGY Monocytes 7.9 % 2.0 - 12.0 05/06 /2015 [place] HEMATOLOGY Monocytes # 0.9 K/CMM 0.0 - 0.8 05/06 /2015 [place] HEMATOLOGY Eosinophils 0.2 K/CMM 0.0 - 0.5 05/06 MH # /2015 [place] HEMATOLOGY Lymphocytes 2.7 K/CMM 1.0 - 5.5 05/06 MH # /2015 [place] HEMATOLOGY Segs 65.2 % 45.0 - 05/06 MH 75.0 /2015 [place] HEMATOLOGY MCV 69.7 fL 80.0 - 05/06 MH 94.0 [place] HEMATOLOGY MCH 23.3 pg 27.0 - 05/06 MH 31.0 [place] HEMATOLOGY Hgb 12.2 g/dL 14.0 - 05/06 MH 18.0 [place] HEMATOLOGY Hct 36.5 % 42.0 - 05/06 MH 54.0 [place] HEMATOLOGY MCHC 33.4 g/dL 32.0 - 05/06 MH 36.0 [place] HEMATOLOGY Platelet 276 K/CMM 133 - 450 05/06 /2015 [place] HEMATOLOGY MPV 7.2 fL 7.4 - 10.4 05/06 /2015 [place] HEMATOLOGY RDW 17.5 % 11.5 - 05/06 MH 14. [place] HEMATOLOGY WBC X 10x3 11.0 K/CMM 3.7 - 10.4 05/06 [place] HEMATOLOGY RBC X 10x6 5.24 M/CMM 4.70 - 05/06 MH 6.10 [place] HEMATOLOGY INR 1.05 0.85 - 05/06 MH 1.17 [place] HEMATOLOGY PROTIME 13.9 s 12.0 - 05/06 14. [place] HEMATOLOGY aPTT 35.3 s 22.9 - 05/06 MH 35.8 [place] CARDIAC CK-MB INDEX 1.0 0.0 - 2.5 05/05 ENZYMES /2015 [place] CARDIAC CK MB 0.8 ng/mL 0.5 - 3.6 05/05 ENZYMES /2015 [place] CARDIAC Total CK 80 unit/L 12 - 191 05/05 ENZYMES [place] CARDIAC Troponin-I null 0.00 - 05/05 ENZYMES 0.40 [place] CHEM PANEL Alk Phos 133 unit/L 39 - 136 05/05 [place] CHEM PANEL Glucose Lvl 137 mg/dL 70 - 99 05/05 [place] CHEM PANEL BUN 17 mg/dL 7 - 22 05/05 [place] CHEM PANEL Creatinine 1.01 mg/dL 0.50 - 05/05 [facility] Lvl 1.40 [place] CHEM PANEL Sodium Lvl 139 meq/L 135 - 145 05/05 [place] CHEM PANEL ALANINE 34 unit/L 0 - 65 05/05 AMINOTRANSFE [place] RASE CHEM PANEL Albumin Lvl 3.3 g/dL 3.5 - 5.0 05/05 [place] CHEM PANEL Chloride Lvl 105 meq/L 95 - 109 05/05 [place] CHEM PANEL eGFR 88 05/05 Result Comment: [...] is not recommended in the following populations: [address] Individuals with unstable creatinine concentrations, including [...] Total 0.4 mg/dL 0.2 - 1.3 05/05 [place] CHEM PANEL Calcium Lvl 8.6 mg/dL 8.5 - 10.5 05/05 [place] CHEM PANEL Potassium 3.7 meq/L 3.5 - 5.1 05/05 Lvl [place] CHEM PANEL CO2 28 meq/L 24 - 32 05/05 [place] CHEM PANEL Total 7.8 g/dL 6.4 - 8.4 05/05 [place] CHEM PANEL ASPARTATE 16 unit/L 0 - 37 05/05 [place] CHEM PANEL AGAP 9.7 meq/L 10.0 - 05/05 MH 20.0 [place] CHEM PANEL B/C Ratio 17 6 - 25 05/05 [place] CHEM PANEL Globulin 4.5 g/dL 2.7 - 4.2 05/05 [place] CHEM PANEL A/G Ratio 0.7 0.7 - 1.6 05/05 [place] HEMATOLOGY Monocytes # 0.8 K/CMM 0.0 - 0.8 05/05 [place] HEMATOLOGY Eosinophils 0.1 K/CMM 0.0 - 0.5 05/05 # [facility] HEMATOLOGY Basophils # 0.1 K/CMM 0.0 - 0.2 05/05 [place] HEMATOLOGY Microcyte 2+ None Seen 05/05 [place] *ABN* (05/05/16 5:11 PM) HEMATOLOGY Monocytes 7.5 % 2.0 - 12.0 05/05 [place] HEMATOLOGY Eosinophils 1.1 % 0.0 - 4.0 05/05 [place] HEMATOLOGY Basophils 0.7 % 0.0 - 1.0 05/05 [place] HEMATOLOGY Segs-Bands # 7.5 K/CMM 1.5 - 8.1 05/05 [place] HEMATOLOGY Lymphocytes 2.1 K/CMM 1.0 - 5.5 05/05 [place] HEMATOLOGY Lymphocytes 19.9 % 20.0 - 05/05 MH 40.0 [place] HEMATOLOGY Segs 70.8 % 45.0 - 05/05 MH 75.0 [place] HEMATOLOGY Platelet 306 K/CMM 133 - 450 05/05 [place] HEMATOLOGY MCHC 33.6 g/dL 32.0 - 05/05 MH 36.0 [place] HEMATOLOGY MPV 7.3 fL 7.4 - 10.4 05/05 [place] HEMATOLOGY RDW 16.9 % 11.5 - 05/05 MH 14. 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 Electronically Signed by: Tito Farnsworth MD 05/05/16 17:34 FINAL REPORT IMPRESSION: Stable mildly enlarged cardiac silhouette. Atherosclerotic thoracic aorta. No focal consolidation, significant pleural effusion or pneumothorax. SL: [id number] CHEM PANEL Globulin 4.2 g/dL 2.7 - 4.2 04/25 [place] CHEM PANEL B/C Ratio 19 6 - 25 04/25 [place] CHEM PANEL AGAP 9.9 meq/L 10.0 - 04/25 20.0 [place] CHEM PANEL A/G Ratio 0.8 0.7 - 1.6 04/25 [place] CHEM PANEL eGFR 100 04/25 Result Comment: [...] is not recommended in the following populations: [address] Individuals with unstable creatinine concentrations, including [...] Phos 128 unit/L 39 - 136 04/25 [place] CHEM PANEL Albumin Lvl 3.4 g/dL 3.5 - 5.0 04/25 [place] CHEM PANEL ALANINE 30 unit/L 0 - 65 04/25 AMINOTRANSFE [place] RASE CHEM PANEL Total 7.6 g/dL 6.4 - 8.4 04/25 Protein [place] CHEM PANEL Bili Total 0.3 mg/dL 0.2 - 1.3 04/25 [place] CHEM PANEL ASPARTATE 14 unit/L 0 - 37 04/25 TRANSAMINASE [place] CHEM PANEL CO2 26 meq/L 24 - 32 04/25 [place] CHEM PANEL Calcium Lvl 8.7 mg/dL 8.5 - 10.5 04/25 [place] CHEM PANEL Chloride Lvl 104 meq/L 95 - 109 04/25 [place] CHEM PANEL Potassium 3.9 meq/L 3.5 - 5.1 04/25 MH Lvl /2015 [place] CHEM PANEL Glucose Lvl 221 mg/dL 70 - 99 04/25 [place] CHEM PANEL Sodium Lvl 136 meq/L 135 - 145 04/25 [place] CHEM PANEL Creatinine 0.91 mg/dL 0.50 - 04/25 MH Lvl 1.40 [place] CHEM PANEL BUN 17 mg/dL 7 - 22 04/25 [place] HEMATOLOGY RBC X 10x6 5.40 M/CMM 4.70 - 04/25 MH 6.10 [place] HEMATOLOGY WBC X 10x3 10.3 K/CMM 3.7 - 10.4 04/25 [place] HEMATOLOGY Hgb 12.9 g/dL 14.0 - 04/25 MH 18.0 [place] HEMATOLOGY MPV 7.2 fL 7.4 - 10.4 04/25 [place] HEMATOLOGY RDW 16.8 % 11.5 - 04/25 MH 14. [place] HEMATOLOGY Platelet 313 K/CMM 133 - 450 04/25 [place] HEMATOLOGY MCH 23.8 pg 27.0 - 04/25 MH 31.0 [place] HEMATOLOGY MCHC 34.0 g/dL 32.0 - 04/25 36.0 /2015 [place] HEMATOLOGY Hct 37.9 % 42.0 - 04/25 MH 54.0 /2015 [place] HEMATOLOGY MCV 70.1 fL 80.0 - 04/25 94.0 /2015 [place] HEMATOLOGY Lymphocytes 2.3 K/CMM 1.0 - 5.5 04/25 MH # /2016 [place] HEMATOLOGY Eosinophils 0.1 K/CMM 0.0 - 0.5 04/25 # /2015 [place] HEMATOLOGY Monocytes # 0.6 K/CMM 0.0 - 0.8 04/25 [place] HEMATOLOGY Basophils # 0.1 K/CMM 0.0 - 0.2 04/25 [place] HEMATOLOGY Microcyte 2+ None Seen 04/25 [place] *ABN* (04/25/16 6:17 PM) HEMATOLOGY Segs 69.2 % 45.0 - 04/25 MH 75.0 /2015 [place] HEMATOLOGY Segs-Bands # 7.1 K/CMM 1.5 - 8.1 04/25 [place] HEMATOLOGY Monocytes 6.1 % 2.0 - 12.0 04/25 [place] HEMATOLOGY Basophils 1.1 % 0.0 - 1.0 04/25 [place] HEMATOLOGY Eosinophils 1.1 % 0.0 - 4.0 04/25 [place] HEMATOLOGY Lymphocytes 22.5 % 20.0 - 04/25 40.0 /2016 [place] URINE AND UA WBC 0-2 /HPF None Seen 04/25 STOOL /HPF [place] URINE AND UA RBC 0-2 /HPF 0 - 2 04/25 STOOL [place] URINE AND UA Bacteria Occasional None Seen 04/25 [facility] /HPF /HPF [place] URINE AND UA Leuk Est Negative Negative 04/25 STOOL [place] (04/25/16 6:17 PM) URINE AND UA Sq Epi Occasional Few /LPF 04/25 STOOL /LPF /2015 [place] URINE AND UA pH 6.0 5.0 - 8.0 04/25 [place] URINE AND UA Protein Negative Negative 04/25 STOOL [place] (04/25/16 6:17 PM) URINE AND UA Glucose 250 mg/dL Negative 04/25 [facility]OOL mg/dL /2015 [place] URINE AND UA Ketones Negative Negative 04/25 STOOL [place] *NA* (04/25/16 6:17 PM) URINE AND UA Bili Negative Negative 04/25 [place] *NA* (04/25/16 6:17 PM) URINE AND UA Blood Negative Negative 04/25 [place] (04/25/16 6:17 PM) URINE AND UA 0.2 EU/dL 0.1 - 1.0 04/25 [facility] Urobilinogen [place] URINE AND UA Nitrite Negative Negative 04/25 STOOL [place] (04/25/16 6:17 PM) URINE AND UA Color Yellow Yellow 04/25 [place] *NA* (04/25/16 6:17 PM) URINE AND UA Turbidity Clear Clear 04/25 [place] (04/25/16 6:17 PM) URINE AND UA Spec Grav 1.020 <=1.030 04/25 [facility] [place] Renal Stone Renal Stone EXAM: CT ABDOMEN AND PELVIS WITHOUT CONTRAST [facility] CT [facility] DATE: 04/25/2016 6:07 PM CDT Read by: Pernell Cruz MD Dictated Date/time: 04/25/16 19:09 Electronically Signed by: Pernell Curz MD 04/25/16 19:13 FINAL REPORT INDICATION: Abdominal pain, acute. COMPARISON: CT dated 03/02/2016. TECHNIQUE: Helical CT imaging of the abdomen and pelvis performed from lung bases through the lesser trochanters without intravenous contrast. Axial, sagittal, and coronal multiplanar reconstructions were provided. IV contrast: None. CT Radiation Dose: CCR=[id number] mGy-cm FINDINGS: Evaluation of the solid organs [...] infrarenal abdominal aorta without aneurysmal dilatation. SL: [id number] CARDIAC Troponin-I null 0.00 - 03/05 MH ENZYMES 0.40 /2015 [place] CARDIAC CK MB 0.8 ng/mL 0.5 - 3.6 03/05 MH ENZYMES /2016 [place] CARDIAC Total CK 60 unit/L - 191 03/05 MH ENZYMES /2016 [place] CARDIAC CK-MB INDEX 1.3 0.0 - 2.5 03/05 MH ENZYMES /2016 [place] CARDIAC Troponin-I null 0.00 - 03/05 MH ENZYMES 0.40 2016 [place] CARDIAC Total CK 66 unit/L - 191 03/05 MH ENZYMES /2016 [place] CARDIAC CK MB 0.6 ng/mL 0.5 - 3.6 03/05 MH ENZYMES /2016 [place] CARDIAC CK-MB INDEX 0.9 0.0 - 2.5 03/05 [facility] ENZYMES /2016 [place] CHEM PANEL eGFR 103 03/05 Result Comment: [...] is not recommended in the following populations: [address] Individuals with unstable creatinine concentrations, including [...] 12.0 meq/L 10.0 - 09 MH 20.0 [place] CHEM PANEL Globulin 4.4 g/dL 2.7 - 4.2 03/05 [place] CHEM PANEL B/C Ratio 14 6 - 25 03/05 [place] CHEM PANEL A/G Ratio 0.8 0.7 - 1.6 03/05 [place] CHEM PANEL Calcium Lvl 8.8 mg/dL 8.5 - 10.5 03/05 [place] CHEM PANEL Bili Total 0.6 mg/dL 0.2 - 1.3 03/05 [place] CHEM PANEL Total 7.8 g/dL 6.4 - 8.4 03/05 Protein [place] CHEM PANEL ASPARTATE 16 unit/L 0 - 37 03/05 [place] CHEM PANEL Alk Phos 128 unit/L 39 - 136 03/05 [place] CHEM PANEL Glucose Lvl 97 mg/dL 70 - 99 03/05 [place] CHEM PANEL Creatinine 0.88 mg/dL 0.50 - 03/05 MH Lvl 1.40 [place] CHEM PANEL BUN 12 mg/dL 7 - 22 03/05 [place] CHEM PANEL Sodium Lvl 138 meq/L 135 - 145 03/05 [place] CHEM PANEL ALANINE 32 unit/L 0 - 65 03/05 AMINOTRANS [place] RASE CHEM PANEL Albumin Lvl 3.4 g/dL 3.5 - 5.0 03/05 [place] CHEM PANEL Potassium 4.0 meq/L 3.5 - 5.1 03/05 MH Lvl [place] CHEM PANEL Chloride Lvl 105 meq/L 95 - 109 03/05 [place] CHEM PANEL CO2 25 meq/L 24 - 32 03/05 [place] HEMATOLOGY Platelet 294 K/CMM 133 - 450 03/05 [place] HEMATOLOGY MPV 7.4 fL 7.4 - 10.4 03/05 [place] HEMATOLOGY WBC X 10x3 10.0 K/CMM 3.7 - 10.4 03/05 [place] HEMATOLOGY RDW 16.6 % 11.5 - 03/05 MH 14.5 [place] HEMATOLOGY MCH 24.1 pg 27.0 - 03/05 MH 31.0 [place] HEMATOLOGY MCHC 33.4 g/dL 32.0 - 03/05 MH 36.0 [place] HEMATOLOGY MCV 72.2 fL 80.0 - 03/05 MH 94.0 [place] HEMATOLOGY Hct 38.1 % 42.0 - 03/05 MH 54.0 [place] HEMATOLOGY RBC X 10x6 5.28 M/CMM 4.70 - 03/05 MH 6.10 [place] HEMATOLOGY Hgb 12.7 g/dL 14.0 - 03/05 MH 18.0 [place] HEMATOLOGY Microcyte 1+ None Seen 03/05 [place] *ABN* (03/05/16 7:30 AM) HEMATOLOGY Basophils # 0.1 K/CMM 0.0 - 0.2 03/05 [place] HEMATOLOGY Monocytes # 0.7 K/CMM 0.0 - 0.8 03/05 [place] HEMATOLOGY Eosinophils 0.1 K/CMM 0.0 - 0.5 03/05 MH # /2015 [place] HEMATOLOGY Segs-Bands # 7.5 K/CMM 1.5 - 8.1 03/05 [place] HEMATOLOGY Lymphocytes 1.6 K/CMM 1.0 - 5.5 03/05 # /2015 [place] HEMATOLOGY Eosinophils 1.2 % 0.0 - 4.0 03/05 [place] HEMATOLOGY Basophils 0.6 % 0.0 - 1.0 03/05 [place] HEMATOLOGY Segs 75.1 % 45.0 - 03/05 MH 75.0 [place] HEMATOLOGY Monocytes 7.4 % 2.0 - 12.0 03/05 [place] HEMATOLOGY Lymphocytes 15.7 % 20.0 - 03/05 40.0 [place] Chest 1view Chest 1view Patient Name: ANNABEL MCCONNELL 03/05 - [facility] /[facility] - [place] : 1970; Age: 45 years y/o Male MR: [id number] Read by: Jason Dozier MD Dictated Date/time: [...] unremarkable. IMPRESSION: 1. No active disease. SL: [id number] URINE AND UA RBC 0-2 /HPF 0 - 2 03/02 [place] URINE AND UA Sq Epi None Seen Few 03/02 [place] (03/02/16 8:22 AM) URINE AND UA WBC None Seen None Seen 03/02 [place] (03/02/16 8:22 AM) URINE AND UA pH 6.0 5.0 - 8.0 03/02 [place] URINE AND UA Protein Negative Negative 03/02 STOOL mg/dL mg/dL [place] URINE AND UA Glucose Negative Negative 03/02 [facility] mg/dL mg/dL [place] URINE AND UA Ketones Negative Negative 03/02 [facility] mg/dL mg/dL [place] URINE AND UA Bili Negative Negative 03/02 [place] *NA* (03/02/16 8:22 AM) URINE AND UA Color Yellow Yellow 03/02 [place] *NA* (03/02/16 8:22 AM) URINE AND UA Turbidity Clear Clear 03/02 [place] (03/02/16 8:22 AM) URINE AND UA Spec Grav 1.015 <=1.030 03/02 [place] URINE AND UA Blood Negative Negative 03/02 [place] (03/02/16 8:22 AM) URINE AND UA 0.2 EU/dL 0.1 - 1.0 03/02 STOOL Urobilinogen [place] URINE AND UA Nitrite Negative Negative 03/02 [place] (03/02/16 8:22 AM) URINE AND UA Leuk Est Negative Negative 03/02 STOOL [place] (03/02/16 8:22 AM) CHEM PANEL A/G Ratio 0.7 0.7 - 1.6 03/02 [place] CHEM PANEL Globulin 4.6 g/dL 2.7 - 4.2 03/02 [place] CHEM PANEL B/C Ratio 16 6 - 25 03/02 [place] CHEM PANEL AGAP 10.4 meq/L 10.0 - 03/02 MH 20.0 [place] CHEM PANEL Total 8.0 g/dL 6.4 - 8.4 03/02 Protein [place] CHEM PANEL Bili Total 0.3 mg/dL 0.2 - 1.3 03/02 [place] CHEM PANEL Calcium Lvl 8.7 mg/dL 8.5 - 10.5 03/02 [place] CHEM PANEL CO2 26 meq/L 24 - 32 03/02 [place] CHEM PANEL Chloride Lvl 106 meq/L 95 - 109 03/02 [place] CHEM PANEL Sodium Lvl 138 meq/L 135 - 145 03/02 [place] CHEM PANEL Potassium 4.4 meq/L 3.5 - 5.1 03/02 Lv [place] CHEM PANEL eGFR 83 03/02 Result Comment: [...] is not recommended in the following populations: [place] 3m2 Individuals with unstable creatinine concentrations, including [...] ASPARTATE 13 unit/L 0 - 37 03/02 [place] CHEM PANEL Creatinine 1.07 mg/dL 0.50 - 03/02 MH Lvl 1.40 /2015 [place] CHEM PANEL BUN 17 mg/dL 7 - 22 03/02 [place] CHEM PANEL Glucose Lvl 106 mg/dL 70 - 99 03/02 [place] CHEM PANEL Alk Phos 127 unit/L 39 - 136 03/02 [place] CHEM PANEL Albumin Lvl 3.4 g/dL 3.5 - 5.0 03/02 [place] CHEM PANEL ALANINE 33 unit/L 0 - 65 03/02 AMINOTRANSFE /2015 [place] RASE CHEM PANEL Lipase Lvl 164 unit/L 73 - 393 03/02 [place] HEMATOLOGY Basophils # 0.1 K/CMM 0.0 - 0.2 03/02 [place] HEMATOLOGY Microcyte 1+ None Seen 03/02 [place] *ABN* (03/02/16 5:41 AM) HEMATOLOGY Monocytes 6.7 % 2.0 - 12.0 03/02 [place] HEMATOLOGY Lymphocytes 21.9 % 20.0 - 03/02 MH 40.0 [place] HEMATOLOGY Eosinophils 1.5 % 0.0 - 4.0 03/02 [place] HEMATOLOGY Segs 69.1 % 45.0 - 03/02 75.0 [place] HEMATOLOGY Monocytes # 0.8 K/CMM 0.0 - 0.8 03/02 [place] HEMATOLOGY Lymphocytes 2.6 K/CMM 1.0 - 5.5 03/02 MH # [place] HEMATOLOGY Eosinophils 0.2 K/CMM 0.0 - 0.5 03/02 MH [place] HEMATOLOGY Segs-Bands # 8.1 K/CMM 1.5 - 8.1 03/02 [place] HEMATOLOGY Basophils 0.8 % 0.0 - 1.0 03/02 [place] HEMATOLOGY WBC X 10x3 11.8 K/CMM 3.7 - 10.4 03/02 [place] HEMATOLOGY Hct 37.4 % 42.0 - 03/02 MH 54.0 [place] HEMATOLOGY RBC X 10x6 5.18 M/CMM 4.70 - 03/02 MH 6.10 [place] HEMATOLOGY Hgb 12.5 g/dL 14.0 - 03/02 MH 18.0 /2015 [place] HEMATOLOGY MCH 24.1 pg 27.0 - 03/02 MH 31.0 /2015 [place] HEMATOLOGY RDW 16.7 % 11.5 - 03/02 MH 14.5 /2015 [place] HEMATOLOGY MCHC 33.4 g/dL 32.0 - 03/02 MH 36.0 /2015 [place] HEMATOLOGY MCV 72.1 fL 80.0 - 03/02 94.0 /2015 [place] HEMATOLOGY MPV 7.7 fL 7.4 - 10.4 03/02 [place] HEMATOLOGY Platelet 303 K/CMM 133 - 450 03/02 [place] Chest/Abdom Chest/Abdome CT THORAX/ABDOMEN/PELVIS WITH IV CONTRAST WITH SAGITTAL AND CORONAL REFORMATTED IMAGES 03/02 - [facility] en/Pelvis w n/Pelvis w - [place] IV contrast IV contrast CT CT HISTORY: [...] colonic diverticulosis, small abdominal aortic aneurysm. SL: [id number] Abdomen RUQ Abdomen RUQ ULTRASOUND ABDOMEN RIGHT UPPER QUADRANT 03/02 - [facility] US US /2015 - [place] HISTORY: Abdominal pain, acute; right flank pain [...] steatosis. 2. Otherwise normal abdominal ultrasound. SL: [id number] Renal Stone Renal Stone Patient Name: ANNABEL MCCONNELL 03/[address] [facility] CT CT /2015 [facility] : 1970; Age: 45 years y/o Male MR: [id number] Read by: John Paul Carrero MD Dictated Date/time: 03/02/16 05:55 Electronically Signed by: John Paul Carrero MD 03/02/16 05:59 FINAL REPORT Study: Renal Stone CT 03/02/2016 5:25 AM CDT Ordering Physician: Clinical Indication: Abdominal pain, acute; Comparison: None TECHNIQUE: Noncontrasted helical imaging was performed from the kidneys through the symphysis as a renal stone protocol. Multiplanar reformations are available. CT Radiation Dose: UCH=[id number] mGy-cm FINDINGS: This examination is limited for [...] - 5.1 02/18 MH S Lvl /2015 [place] ELECTROLYTE Chloride Lvl 104 meq/L 95 - 109 02/18 S [place] ELECTROLYTE Sodium Lvl 136 meq/L 135 - 145 02/18 MH S /2015 [place] ELECTROLYTE Glucose Lvl 147 mg/dL 70 - 99 02/18 MH S [place] ELECTROLYTE Creatinine 0.88 mg/dL 0.50 - 02/18 MH S Lvl 1.40 [place] ELECTROLYTE BUN 10 mg/dL 7 - 22 02/18 MH S /2015 [place] ELECTROLYTE eGFR 103 02/18 Result Comment: The [...] is not recommended in the following populations: [place] 3m2 Individuals with unstable creatinine concentrations, including [...] 8.5 - 10.5 02/18 MH S /2015 [place] ELECTROLYTE CO2 24 meq/L 24 - 32 02/18 MH S /2015 [place] ELECTROLYTE AGAP 12.4 meq/L 10.0 - 02/18 MH S 20.0 [place] HEMATOLOGY RDW 16.3 % 11.5 - 02/18 MH 14. [place] HEMATOLOGY Platelet 273 K/CMM 133 - 450 02/18 [place] HEMATOLOGY MPV 7.5 fL 7.4 - 10.4 02/18 [place] HEMATOLOGY Hgb 12.8 g/dL 14.0 - 02/18 MH 18.0 [place] HEMATOLOGY RBC X 10x6 5.31 M/CMM 4.70 - 02/18 MH 6.10 [place] HEMATOLOGY WBC X 10x3 11.1 K/CMM 3.7 - 10.4 02/18 [place] HEMATOLOGY MCV 72.6 fL 80.0 - 02/18 MH 94.0 [place] HEMATOLOGY Hct 38.6 % 42.0 - 02/18 MH 54.0 [place] HEMATOLOGY MCH 24.1 pg 27.0 - 02/18 MH 31.0 [place] HEMATOLOGY MCHC 33.1 g/dL 32.0 - 02/18 MH 36.0 [place] CARDIAC Troponin-I null 0.00 - 02/17 MH ENZYMES 0.40 [place] HEMATOLOGY Monocytes 7.9 % 2.0 - 12.0 02/17 [place] HEMATOLOGY Lymphocytes 20.8 % 20.0 - 02/17 MH 40.0 [place] HEMATOLOGY Segs 69.1 % 45.0 - 02/17 MH 75.0 [place] HEMATOLOGY Lymphocytes 2.2 K/CMM 1.0 - 5.5 02/17 MH /2015 [place] HEMATOLOGY Monocytes # 0.8 K/CMM 0.0 - 0.8 02/17 [place] HEMATOLOGY Eosinophils 1.6 % 0.0 - 4.0 02/17 [place] HEMATOLOGY Segs-Bands # 7.5 K/CMM 1.5 - 8.1 02/17 [place] HEMATOLOGY Basophils 0.6 % 0.0 - 1.0 02/17 [place] HEMATOLOGY Microcyte 1+ None Seen 02/17 [facility] *ABN* (02/18/16 5:20 AM) HEMATOLOGY Basophils # 0.1 K/CMM 0.0 - 0.2 02/17 [place] HEMATOLOGY Eosinophils 0.2 K/CMM 0.0 - 0.5 02/17 MH # /2015 [place] HEMATOLOGY RBC X 10x6 4.91 M/CMM 4.70 - 02/17 MH 6.10 [place] HEMATOLOGY WBC X 10x3 10.8 K/CMM 3.7 - 10.4 02/17 [place] HEMATOLOGY MCH 24.1 pg 27.0 - 02/17 MH 31.0 [place] HEMATOLOGY MCV 73.1 fL 80.0 - 02/17 MH 94.0 [place] HEMATOLOGY Hct 35.9 % 42.0 - 02/17 MH 54.0 [place] HEMATOLOGY Hgb 11.8 g/dL 14.0 - 02/17 MH 18.0 [place] HEMATOLOGY MPV 7.4 fL 7.4 - 10.4 02/17 [place] HEMATOLOGY RDW 16.3 % 11.5 - 02/17 14.5 [place] HEMATOLOGY MCHC 33.0 g/dL 32.0 - 02/17 MH 36.0 [place] HEMATOLOGY Platelet 270 K/CMM 133 - 450 02/17 [place] CARDIAC Troponin-I null 0.00 - 02/16 ENZYMES 0. [place] CHEM PANEL Procalcitoni null 0.00 - 02/16 n Lvl 0.10 [place] CARDIAC Troponin-I null 0.00 - 02/16 ENZYMES 0.40 [place] URINE AND UA Bacteria None Seen None Seen 02/16 STOOL /2015 [place] (02/17/16 6:27 AM) URINE AND UA RBC None Seen 0 - 2 02/16 STOOL /2015 [place] (02/17/16 6:27 AM) URINE AND UA Mucus Few /LPF None Seen 02/16 STOOL /LPF /2015 [place] URINE AND UA Sq Epi Rare /LPF Few /LPF 02/16 STOOL [place] URINE AND UA WBC 0-2 /HPF None Seen 02/16 STOOL /HPF /2015 [place] URINE AND UA Leuk Est Negative Negative 02/16 STOOL /2015 [place] (02/17/16 6:27 AM) URINE AND UA 0.2 EU/dL 0.1 - 1.0 02/16 STOOL Urobilinogen [place] URINE AND UA Nitrite Negative Negative 02/16 STOOL [place] (02/17/16 6:27 AM) URINE AND UA Spec Grav 1.025 <=1.030 02/16 STOOL [place] URINE AND UA Turbidity Clear Clear 02/16 STOOL [place] (02/17/16 6:27 AM) URINE AND UA Color Yellow Yellow 02/16 STOOL [place] *NA* (02/17/16 6:27 AM) URINE AND UA Bili Negative Negative 02/16 STOOL [place] *NA* (02/17/16 6:27 AM) URINE AND UA Blood Negative Negative 02/16 STOOL [place] (02/17/16 6:27 AM) URINE AND UA Ketones Negative Negative 02/16 STOOL mg/dL mg/dL [place] URINE AND UA Glucose Negative Negative 02/16 STOOL mg/dL mg/dL [place] URINE AND UA pH 6.0 5.0 - 8.0 02/16 STOOL [place] URINE AND UA Protein Negative Negative 02/16 STOOL mg/dL mg/dL [place] CARDIAC CK-MB INDEX 1.6 0.0 - 2.5 02/16 ENZYMES [place] CARDIAC CK MB 0.9 ng/mL 0.5 - 3.6 02/16 ENZYMES [place] CARDIAC Total CK 58 unit/L 12 - 191 02/16 ENZYMES [place] CHEM PANEL eGFR 93 02/16 Result Comment: [...] is not recommended in the following populations: [place] 3m2 Individuals with unstable creatinine concentrations, including [...] 33 unit/L 0 - 65 02/16 AMINOTRANS [place] RASE CHEM PANEL CO2 23 meq/L 24 - 32 02/16 [place] CHEM PANEL Calcium Lvl 8.8 mg/dL 8.5 - 10.5 02/16 [place] CHEM PANEL Potassium 4.0 meq/L 3.5 - 5.1 02/16 MH Lvl [place] CHEM PANEL Chloride Lvl 105 meq/L 95 - 109 02/16 [place] CHEM PANEL Creatinine 0.97 mg/dL 0.50 - 02/16 [facility] Lvl 1.40 [facility] CHEM PANEL Glucose Lvl 103 mg/dL 70 - 99 02/16 [facility] CHEM PANEL BUN 11 mg/dL 7 - 22 02/16 [facility] CHEM PANEL Albumin Lvl 3.4 g/dL 3.5 - 5.0 02/16 [facility] CHEM PANEL Alk Phos 128 unit/L 39 - 136 02/16 [facility] CHEM PANEL Bili Total 0.5 mg/dL 0.2 - 1.3 02/16 [facility] CHEM PANEL Sodium Lvl 139 meq/L 135 - 145 02/16 [facility] CHEM PANEL AGAP 15.0 meq/L 10.0 - 02/16 [facility] 20.0 [facility] CHEM PANEL B/C Ratio 11 6 - 25 02/16 [facility] CHEM PANEL Total 8.0 g/dL 6.4 - 8.4 02/16 [facility] CHEM PANEL ASPARTATE 16 unit/L 0 - 37 02/16 [facility] CHEM PANEL Globulin 4.6 g/dL 2.7 - 4.2 02/16 [facility] CHEM PANEL A/G Ratio 0.7 0.7 - 1.6 02/16 [facility] HEMATOLOGY Microcyte 1+ None Seen 02/16 [facility] *ABN* (02/17/16 5:50 AM) HEMATOLOGY Basophils # 0.1 K/CMM 0.0 - 0.2 02/16 [facility] HEMATOLOGY Basophils 0.5 % 0.0 - 1.0 02/16 [facility] HEMATOLOGY Lymphocytes 2.4 K/CMM 1.0 - 5.5 02/16 MH # /2015 [place] HEMATOLOGY Monocytes # 0.8 K/CMM 0.0 - 0.8 02/16 [facility] HEMATOLOGY Eosinophils 0.1 K/CMM 0.0 - 0.5 02/16 MH # /2015 [place] HEMATOLOGY Segs-Bands # 8.7 K/CMM 1.5 - 8.1 02/16 [place] HEMATOLOGY Eosinophils 1.2 % 0.0 - 4.0 02/16 [place] HEMATOLOGY Segs 72.1 % 45.0 - 02/16 MH 75.0 [place] HEMATOLOGY Lymphocytes 19.8 % 20.0 - 02/16 MH 40.0 [place] HEMATOLOGY Monocytes 6.4 % 2.0 - 12.0 02/16 [facility] HEMATOLOGY Platelet 327 K/CMM 133 - 450 02/16 [facility] HEMATOLOGY MCH 24.1 pg 27.0 - 02/16 31.0 [facility] HEMATOLOGY MCHC 33.3 g/dL 32.0 - 02/16 36.0 [facility] HEMATOLOGY MPV 7.6 fL 7.4 - 10.4 02/16 [facility] HEMATOLOGY RDW 16.3 % 11.5 - 02/16 14.5 [facility] HEMATOLOGY Hgb 13.1 g/dL 14.0 - 02/16 18.0 [facility] HEMATOLOGY Hct 39.5 % 42.0 - 02/16 54.0 [facility] HEMATOLOGY WBC X 10x3 12.0 K/CMM 3.7 - 10.4 02/16 [facility] HEMATOLOGY RBC X 10x6 5.45 M/CMM 4.70 - 02/16 MH 6.10 [place] HEMATOLOGY MCV 72.6 fL 80.0 - 02/16 94.0 [place] Renal Stone Renal Stone Patient Name: ANNABEL MCCONNELL 02/16 - [facility] - [place] : 1970; Age: 45 years Male MR: [id number] Read by: Sundar Jeffrey MD Dictated Date/time: [...] small left renal cyst. 7. Cardiomegaly. SL: [id number] Chest 1view Chest 1view Patient Name: ANNABEL MCCONNELL 02/[address] [facility] DX DX [place] : 1970; Age: 45 years y/o Male MR: [id number] Read by: Jaun Guillermo MD Dictated Date/time: [...] Date Comments Source Respitory Rate 18 05/17/2016 [facility] Temperature Oral (F) 98.1 F 05/17/2016 [facility] Heart Rate 72 05/17/2016 [facility] Systolic (mm Hg) 116 05/17/2016 [facility] Diastolic (mm Hg) 76 05/17/2016 [facility] Weight 128.636 05/17/2016 [facility] Temperature Oral (F) 97.6 F 05/17/2016 [facility] Respitory Rate 16 05/17/2016 [facility] Heart Rate 79 05/17/2016 [facility] Systolic (mm Hg) 100 05/17/2016 [facility] Diastolic (mm Hg) 69 05/17/2016 [facility] Respitory Rate 16 05/06/2016 [facility] Systolic (mm Hg) 134 05/06/2016 [facility] Diastolic (mm Hg) 84 05/06/2016 [facility] Heart Rate 61 05/06/2016 [facility] Temperature Oral (F) 97.9 F 05/06/2016 [facility] Respitory Rate 14 05/06/2016 [facility] Temperature Oral (F) 97.4 F 05/06/2016 [facility] Systolic (mm Hg) 117 05/06/2016 [facility] Diastolic (mm Hg) 77 05/06/2016 [facility] Respitory Rate 18 05/06/2016 [facility] Heart Rate 56 05/06/2016 [facility] Systolic (mm Hg) 120 05/06/2016 [facility] Diastolic (mm Hg) 77 05/06/2016 [facility] Heart Rate 62 05/06/2016 [facility] Temperature Oral (F) 97.9 F 05/06/2016 [facility] Weight 131.7 05/06/2016 [facility] BMI Calculated 41.66 05/06/2016 [facility] Height 177.8 cm 05/06/2016 [facility] Weight 127.273 05/05/2016 [facility] Systolic (mm Hg) 118 04/26/2016 [facility] Diastolic (mm Hg) 64 04/26/2016 [facility] Respitory Rate 18 04/26/2016 [facility] Heart Rate 78 04/26/2016 [facility] Temperature Oral (F) 97.4 F 04/26/2016 [facility] Weight 128.182 04/25/2016 [facility] BMI Calculated 40.55 04/25/2016 [facility] Height 177.8 cm 04/25/2016 [facility] Respitory Rate 18 04/25/2016 [facility] Temperature Oral (F) 97.2 F 04/25/2016 [facility] Heart Rate 80 04/25/2016 [facility] Systolic (mm Hg) 137 04/25/2016 [facility] Diastolic (mm Hg) 85 04/25/2016 [facility] Temperature Oral (F) 98.7 F 03/05/2016 [facility] Respitory Rate 16 03/05/2016 [facility] Systolic (mm Hg) 127 03/05/2016 [facility] Diastolic (mm Hg) 68 03/05/2016 [facility] Respitory Rate 16 03/05/2016 [facility] Systolic (mm Hg) 124 03/05/2016 [facility] Diastolic (mm Hg) 76 03/05/2016 [facility] Systolic (mm Hg) 127 03/05/2016 [facility] Diastolic (mm Hg) 77 03/05/2016 [facility] Height 177.8 cm 03/05/2016 [facility] BMI Calculated 40.83 03/05/2016 [facility] Weight 129.091 03/05/2016 [facility] Heart Rate 62 03/05/2016 [facility] Temperature Oral (F) 98.9 F 03/05/2016 [facility] Respitory Rate 18 03/05/2016 [facility] Temperature Oral (F) 98.2 F 03/02/2016 [facility] Heart Rate 58 03/02/2016 [facility] Respitory Rate 16 03/02/2016 [facility] Systolic (mm Hg) 120 03/02/2016 [facility] Diastolic (mm Hg) 66 03/02/2016 [facility] Heart Rate 50 03/02/2016 [facility] Weight 128.636 03/02/2016 [facility] Temperature Oral (F) 98.0 F 03/02/2016 [facility] Respitory Rate 18 03/02/2016 [facility] Systolic (mm Hg) 149 03/02/2016 [facility] Diastolic (mm Hg) 87 03/02/2016 [facility] Heart Rate 69 03/02/2016 [facility] Systolic (mm Hg) 107 02/20/2016 [facility] Diastolic (mm Hg) 66 02/20/2016 [facility] Temperature Oral (F) 98.0 F 02/20/2016 [facility] Respitory Rate 17 02/20/2016 [facility] Heart Rate 81 02/20/2016 [facility] Heart Rate 73 02/19/2016 [facility] Respitory Rate 17 02/19/2016 [facility] Temperature Oral (F) 97.8 F 02/19/2016 [facility] Systolic (mm Hg) 96 02/19/2016 [facility] Diastolic (mm Hg) 63 02/19/2016 [facility] Systolic (mm Hg) 128 02/19/2016 [facility] Diastolic (mm Hg) 84 02/19/2016 [facility] Heart Rate 82 02/19/2016 [facility] Temperature Oral (F) 97.9 F 02/19/2016 [facility] Respitory Rate 17 02/19/2016 [facility] Height 177.8 cm 02/17/2016 [facility] BMI Calculated 40.98 02/17/2016 [facility] Weight 129.545 02/17/2016 [facility] Weight 129.545 02/17/2016 [facility] BMI Calculated 40.98 02/17/2016 [facility] Height 177.8 cm 02/17/2016 [facility] Encounters Location Location Encounter Encounter Reason Attending ADM DC Status Source Details Type Number For Provider Date Date Visit [facility] [id number] Osmar 02/16 02/19 [place] Roberts /2015 [facility] [id number] Fei 03/02 03/02 [place] Partida /2015 [facility] [id number] Rachel Platt 03/05 03/05 [place] /2015 [facility] [id number] Agustin 04/25 04/26 [place] Lopez /2015 [facility] [id number] Geronimo 05/05 05/07 [place] Dupont /2015 [facility] [id number] Karey 05/17 05/18 [place] Zuleta /2015 [facility] Procedures Procedure Code Date Perfomer Comments Source Catheterization of [id number] [facility] right heart Lithotripsy [id number] [facility] Placement of stent in [id number] R RCA 100% [facility] cardiac blockage conduit<sup>1</sup>
--- OUTSIDE RECORDS SUMMARY | 2018-11-20 15:01 | XMS REPORT ---
:1970 Author Organization [facility] Address [address] [place] [address] Care Team Providers Name Role Phone Unavailable [...] reported result: 1.05 Edited by: INFCE on 07/06/18:321075 1510: SILICA CLOTTING previously reported as: 1.05 ARTERIAL THROMBOPHILIA [id number] 12:28:00 Test Item Value Reference Range Comments PROTHROMBIN 3 NO MUTATION () PROTHROMBIN (FACTOR II) 64199N>A UNTRANSLATED (test DETECTED MUTATION INTERPRETATION:This code=GS2BMPC) individual is negative (normal) for the Q95178Vjxtrqbtk in the Prothrombin/Factor II gene. Increased riskof thrombophilia can be caused by a variety of genetic andnon-genetic factors not screened for this assay. Laboratory testing supervised and results monitored byTarah Segura, Ph.D., [facility], [facility], [facility]. MUTATION ANALYSIS:The Y72175B mutation [LY656168.1:g.43503L>A (c.*97G>A)] inthe Prothrombin/Factor II gene is the second most commoninherited risk factor for thrombosis occuring inapproximately 2% of Caucasians. Presence of the mutation isassociated with an elevation of prothrombin levels to about30% above normal in heterozygotes and 70% above normal inhomozygotes. The M12634Z mutation is detected bypolymerase chain reaction (PCR) and flourescent probehybridization to the targeted region, followed by meltingcurve analysis with a real time PCR system. Although rare,false positive or false negative results may occur. Allresults should be interpreted in the context of clinicalfindings, relevant history, and other laboratory data. This test was developed and its analytical performancecharacteristics have been determined by [facility]. It has not beencleared or approved by the FDA. This assay has beenvalidated pursuant to the CLIA regulations and is used forclinical purposes. Health care providers, please contact your local [employer] genetic counselor or call [phone]) for assistance with interpretation of theseresults. Performed by: [facility]/[place] [address] ACTIVATED PROT C 3.09 RATIO 2.31-5.00 Ratios [...] supervised and results monitored byBjorn Cardoza, Ph.D., [facility], [facility]. MUTATION ANALYSIS:The Factor v Leiden (R560Q) mutation [NM 200112.2: c.1601G>A(p.R534Q)] in the Factor V gene is [...] its analytical performancecharacteristics have been determined by [facility]. It has not beencleared or approved by the FDA. This assay has beenvalidated pursuant to the CLIA regulations and is used forclinical purposes. Health care providers, please contact your local [employer] genetic counselor or call [phone]) for assistance with interpretation of theseresults. Performed by: [facility] [place] [address] PROTEIN S FREE (test 56 % 68-126 [...] yet been included into the APS criteria. IGRY-8-WASQO I IGM 0.8 SMU 0.0-20.0 (test code=GPIIGM) NATM-0-KUJGB I IGG 0.0 SGU 0.0-20.0 (test code=GPIIGG) TTFL-6-ZSTGU I IGA 0.5 AHMET 0.0-20.0 The Antiphospholipid [...] SENSITIVITY CRP 2.347 mg/dl 0.000-0.747 (test code=CRPHS) [id number] 12:28:00 Test Item Value Reference Range Comments FIBRINOGEN (test code=FIB) 640 MG/DL 160-450 Excess administration of anticoagulants and/or FibrinDegradation Products may affect Fibrinogen value. FACTOR [id number] 12:28:00 Test Item Value Reference Range Comments [...] Antithrombin levels are not clinicallysignificant. PROTEIN C [id number] 12:28:00 Test Item Value Reference Range Comments [...] increased levels of Protein C. PROTEIN C [id number] 12:28:00 Test Item Value Reference Range Comments PROTEIN C ANTIGENIC (test 71 % 70-140 Decreased levels of Protein C code=PROTCAG) Antigen may be found incongenital deficiency, treatment with oral anticoagulants,liver disease, D.I.C. and post surgery. Performed by: [facility] [place] [address] PROTEIN S [id number] 12:28:00 Test Item Value Reference Range Comments PROTEIN S TOTAL (test 68 % 70-140 Performed by: [facility] code=PROTSTOT) Diagnostics/[facility] [place] [address] PROTEIN S FUNC (test 70 % 74-148 Protein S deficiency may be acquired code=PROTSFN) due to recentthrombosis, oral anticoagulant therapy, , oralcontraceptives or hormone replacement therapy, liverdysfunction, recent surgery, DIC, and vitamin K deficiency.Hereditary deficiency of Protein S show decreased levels butare rare. Elevated Protein S levels are not clinicallysignificant. Only decreased levels are associated with anincreased thrombotic risk. MTHF REDUCTASE (PCR) [id number] 12:28:00 Test Item Value Reference Range Comments MTHF REDUCTASE (PCR) 677 (test code=MTHFR TEST NOT PERFORMED 677) LUPUS ANTICOAGULANT [id number] 11:48:00 Test Item Value Reference Range Comments [...] reported result: 1.05 Edited by: SMITA on 07/06/18:026722 1510: SILICA CLOTTING previously reported as: 1.05 ARTERIAL THROMBOPHILIA [id number] 11:48:00 Test Item Value Reference Range Comments PROTHROMBIN 3 NO MUTATION () PROTHROMBIN (FACTOR II) 35029Q>A UNTRANSLATED (test DETECTED MUTATION INTERPRETATION:This code=BQ7UAPZ) individual is negative (normal) for the P42016Kwzswcxoj in the Prothrombin/Factor II gene. Increased riskof thrombophilia can be caused by a variety of genetic andnon-genetic factors not screened for this assay. Laboratory testing supervised and results monitored byTarah Segura, Ph.D., [facility], [facility], [facility]. MUTATION ANALYSIS:The V76261K mutation [QP585478.1:g.13369U>A (c.*97G>A)] inthe Prothrombin/Factor II gene is the second most commoninherited risk factor for thrombosis occuring inapproximately 2% of Caucasians. Presence of the mutation isassociated with an elevation of prothrombin levels to about30% above normal in heterozygotes and 70% above normal inhomozygotes. The Z72141C mutation is detected bypolymerase chain reaction (PCR) and flourescent probehybridization to the targeted region, followed by meltingcurve analysis with a real time PCR system. Although rare,false positive or false negative results may occur. Allresults should be interpreted in the context of clinicalfindings, relevant history, and other laboratory data. This test was developed and its analytical performancecharacteristics have been determined by [facility]. It has not beencleared or approved by the FDA. This assay has beenvalidated pursuant to the CLIA regulations and is used forclinical purposes. Health care providers, please contact your local [employer] genetic counselor or call [phone]) for assistance with interpretation of theseresults. Performed by: [facility] [place] [address] ACTIVATED PROT C 3.09 RATIO 2.31-5.00 Ratios [...] supervised and results monitored byBjorn Cardoza, Ph.D., [facility], [facility]. MUTATION ANALYSIS:The Factor v Leiden (R560Q) mutation [NM 637752.2: c.1601G>A(p.R534Q)] in the Factor V gene is [...] its analytical performancecharacteristics have been determined by [facility]. It has not beencleared or approved by the FDA. This assay has beenvalidated pursuant to the CLIA regulations and is used forclinical purposes. Health care providers, please contact your local [employer] genetic counselor or call [phone]) for assistance with interpretation of theseresults. Performed by: [facility]/[place] [address] PROTEIN S FREE (test 56 % 68-126 [...] yet been included into the APS criteria. UTXN-1-QPYIF I IGM 0.8 SMU 0.0-20.0 (test code=GPIIGM) UHUQ-0-CHGPF I IGG 0.0 SGU 0.0-20.0 (test code=GPIIGG) PZZV-6-IKBMM I IGA 0.5 AHMET 0.0-20.0 The Antiphospholipid [...] SENSITIVITY CRP 2.347 mg/dl 0.000-0.747 (test code=CRPHS) [id number] 11:48:00 Test Item Value Reference Range Comments FIBRINOGEN (test code=FIB) 640 MG/DL 160-450 Excess administration of anticoagulants and/or FibrinDegradation Products may affect Fibrinogen value. FACTOR [id number] 11:48:00 Test Item Value Reference Range Comments [...] Antithrombin levels are not clinicallysignificant. PROTEIN C [id number] 11:48:00 Test Item Value Reference Range Comments [...] increased levels of Protein C. PROTEIN C [id number] 11:48:00 Test Item Value Reference Range Comments PROTEIN C ANTIGENIC (test 71 % 70-140 Decreased levels of Protein C code=PROTCAG) Antigen may be found incongenital deficiency, treatment with oral anticoagulants,liver disease, D.I.C. and post surgery. Performed by: [facility] [address] PROTEIN S [id number] 11:48:00 Test Item Value Reference Range Comments PROTEIN S TOTAL (test 68 % 70-140 Performed by: [facility] code=PROTSTOT) [place] [address] PROTEIN S FUNC (test 70 % 74-148 Protein S deficiency may be acquired code=PROTSFN) due to recentthrombosis, oral anticoagulant therapy, , oralcontraceptives or hormone replacement therapy, liverdysfunction, recent surgery, DIC, and vitamin K deficiency.Hereditary deficiency of Protein S show decreased levels butare rare. Elevated Protein S levels are not clinicallysignificant. Only decreased levels are associated with anincreased thrombotic risk. MTHF REDUCTASE (PCR) [id number] 11:48:00 Test Item Value Reference Range Comments MTHF REDUCTASE (PCR) 677 (test code=MTHFR 677) LUPUS ANTICOAGULANT [id number] 11:04:00 Test Item Value Reference Range Comments [...] reported result: 1.05 Edited by: SMITA on 07/06/18:344992 1510: SILICA CLOTTING previously reported as: 1.05 ARTERIAL THROMBOPHILIA [id number] 11:04:00 Test Item Value Reference Range Comments PROTHROMBIN 3 NO MUTATION () PROTHROMBIN (FACTOR II) 00149Q>A UNTRANSLATED (test DETECTED MUTATION INTERPRETATION:This code=OC8NTPS) individual is negative (normal) for the V60682Dfmgusxux in the Prothrombin/Factor II gene. Increased riskof thrombophilia can be caused by a variety of genetic andnon-genetic factors not screened for this assay. Laboratory testing supervised and results monitored Peg Segura, Ph.D., [facility], [facility], [facility]. MUTATION ANALYSIS:The V69152Y mutation [BS222044.1:g.86885C>A (c.*97G>A)] inthe Prothrombin/Factor II gene is the second most commoninherited risk factor for thrombosis occuring inapproximately 2% of Caucasians. Presence of the mutation isassociated with an elevation of prothrombin levels to about30% above normal in heterozygotes and 70% above normal inhomozygotes. The Y50818N mutation is detected bypolymerase chain reaction (PCR) and flourescent probehybridization to the targeted region, followed by meltingcurve analysis with a real time PCR system. Although rare,false positive or false negative results may occur. Allresults should be interpreted in the context of clinicalfindings, relevant history, and other laboratory data. This test was developed and its analytical performancecharacteristics have been determined by [facility]. It has not beencleared or approved by the FDA. This assay has beenvalidated pursuant to the CLIA regulations and is used forclinical purposes. Health care providers, please contact your local [employer] genetic counselor or call [phone]) for assistance with interpretation of theseresults. Performed by: [facility] [address] ACTIVATED PROT C 3.09 RATIO 2.31-5.00 Ratios [...] supervised and results monitored byBjorn Cardoza, Ph.D., [facility], [facility]. MUTATION ANALYSIS:The Factor v Leiden (R560Q) mutation [NM 896442.2: c.1601G>A(p.R534Q)] in the Factor V gene is [...] its analytical performancecharacteristics have been determined by [facility]. It has not beencleared or approved by the FDA. This assay has beenvalidated pursuant to the CLIA regulations and is used forclinical purposes. Health care providers, please contact your local [employer] genetic counselor or call [phone]) for assistance with interpretation of theseresults. Performed by: [facility]/[place] [address] PROTEIN S FREE (test 56 % 68-126 [...] yet been included into the APS criteria. GMXF-2-RPPJB I IGM SMU 0.0-20.0 (test code=GPIIGM) WNDB-1-ZGCFN I IGG SGU 0.0-20.0 (test code=GPIIGG) ZTNR-9-YCJJL I IGA 0.5 AHMET 0.0-20.0 The Antiphospholipid [...] HIGH SENSITIVITY CRP mg/dl 0.000-0.747 (test code=CRPHS) [id number] 11:04:00 Test Item Value Reference Range Comments FIBRINOGEN (test code=FIB) 640 MG/DL 160-450 Excess administration of anticoagulants and/or FibrinDegradation Products may affect Fibrinogen value. FACTOR [id number] 11:04:00 Test Item Value Reference Range Comments [...] Antithrombin levels are not clinicallysignificant. PROTEIN C [id number] 11:04:00 Test Item Value Reference Range Comments [...] increased levels of Protein C. PROTEIN C [id number] 11:04:00 Test Item Value Reference Range Comments PROTEIN C ANTIGENIC (test 71 % 70-140 Decreased levels of Protein C code=PROTCAG) Antigen may be found incongenital deficiency, treatment with oral anticoagulants,liver disease, D.I.C. and post surgery. Performed by: [facility] [address] PROTEIN S [id number] 11:04:00 Test Item Value Reference Range Comments PROTEIN S TOTAL (test 68 % 70-140 Performed by: [facility] code=PROTSTOT) [place] [address] PROTEIN S FUNC (test 70 % 74-148 Protein S deficiency may be acquired code=PROTSFN) due to recentthrombosis, oral anticoagulant therapy, , oralcontraceptives or hormone replacement therapy, liverdysfunction, recent surgery, DIC, and vitamin K deficiency.Hereditary deficiency of Protein S show decreased levels butare rare. Elevated Protein S levels are not clinicallysignificant. Only decreased levels are associated with anincreased thrombotic risk. MTHF REDUCTASE (PCR) [id number] 11:04:00 Test Item Value Reference Range Comments MTHF REDUCTASE (PCR) 677 (test code=MTHFR 677) LUPUS ANTICOAGULANT [id number] 11:03:00 Test Item Value Reference Range Comments [...] reported result: 1.05 Edited by: SMITA on 07/06/18:412092/ 1510: SILICA CLOTTING previously reported as: 1.05 ARTERIAL THROMBOPHILIA [id number] 11:03:00 Test Item Value Reference Range Comments PROTHROMBIN 3 NO MUTATION () PROTHROMBIN (FACTOR II) 23519N>A UNTRANSLATED (test DETECTED MUTATION INTERPRETATION:This code=ZS2MNFX) individual is negative (normal) for the H74618Keukwczdm in the Prothrombin/Factor II gene. Increased riskof thrombophilia can be caused by a variety of genetic andnon-genetic factors not screened for this assay. Laboratory testing supervised and results monitored byTarha Segura, Ph.D., [facility], [facility], [facility]. MUTATION ANALYSIS:The J64974X mutation [ZO372931.1:g.60234O>A (c.*97G>A)] inthe Prothrombin/Factor II gene is the second most commoninherited risk factor for thrombosis occuring inapproximately 2% of Caucasians. Presence of the mutation isassociated with an elevation of prothrombin levels to about30% above normal in heterozygotes and 70% above normal inhomozygotes. The U18903I mutation is detected bypolymerase chain reaction (PCR) and flourescent probehybridization to the targeted region, followed by meltingcurve analysis with a real time PCR system. Although rare,false positive or false negative results may occur. Allresults should be interpreted in the context of clinicalfindings, relevant history, and other laboratory data. This test was developed and its analytical performancecharacteristics have been determined by [facility]. It has not beencleared or approved by the FDA. This assay has beenvalidated pursuant to the CLIA regulations and is used forclinical purposes. Health care providers, please contact your local [employer] genetic counselor or call [phone]) for assistance with interpretation of theseresults. Performed by: [facility] [address] ACTIVATED PROT C 3.09 RATIO 2.31-5.00 Ratios [...] supervised and results monitored byBjorn Cardoza, Ph.D., [facility], [facility]. MUTATION ANALYSIS:The Factor v Leiden (R560Q) mutation [NM 404394.2: c.1601G>A(p.R534Q)] in the Factor V gene is [...] its analytical performancecharacteristics have been determined by [facility]. It has not beencleared or approved by the FDA. This assay has beenvalidated pursuant to the CLIA regulations and is used forclinical purposes. Health care providers, please contact your local [employer] genetic counselor or call [phone]) for assistance with interpretation of theseresults. Performed by: [facility] [address] PROTEIN S FREE (test 56 % 68-126 [...] yet been included into the APS criteria. SIIJ-0-WNSLZ I IGM SMU 0.0-20.0 (test code=GPIIGM) DDSL-4-JHIWI I IGG SGU 0.0-20.0 (test code=GPIIGG) WMOJ-0-SSKPM I IGA 0.5 AHMET 0.0-20.0 The Antiphospholipid [...] HIGH SENSITIVITY CRP mg/dl 0.000-0.747 (test code=CRPHS) [id number] 11:03:00 Test Item Value Reference Range Comments FIBRINOGEN (test code=FIB) 640 MG/DL 160-450 Excess administration of anticoagulants and/or FibrinDegradation Products may affect Fibrinogen value. FACTOR [id number] 11:03:00 Test Item Value Reference Range Comments [...] Antithrombin levels are not clinicallysignificant. PROTEIN C [id number] 11:03:00 Test Item Value Reference Range Comments [...] increased levels of Protein C. PROTEIN C [id number] 11:03:00 Test Item Value Reference Range Comments PROTEIN C ANTIGENIC (test 71 % 70-140 Decreased levels of Protein C code=PROTCAG) Antigen may be found incongenital deficiency, treatment with oral anticoagulants,liver disease, D.I.C. and post surgery. Performed by: [facility] [address] PROTEIN S [id number] 11:03:00 Test Item Value Reference Range Comments [...] with anincreased thrombotic risk. MTHF REDUCTASE (PCR) [id number] 11:03:00 Test Item Value Reference Range Comments MTHF REDUCTASE (PCR) 677 (test code=MTHFR 677) LUPUS ANTICOAGULANT [id number] 21:21:00 Test Item Value Reference Range Comments [...] reported result: 1.05 Edited by: SMITA on 07/06/18:799547 1510: SILICA CLOTTING previously reported as: 1.05 ARTERIAL THROMBOPHILIA [id number] 21:21:00 Test Item Value Reference Range Comments PROTHROMBIN 3 UNTRANSLATED (test code=NC1GWGI) ACTIVATED PROT C 3.09 RATIO 2.31-5.00 Ratios [...] levels are associated with anincreased thrombotic risk. MOYN IGG (test 0.2 GPL <=15 code=ACAG) MONY [...] yet been included into the APS criteria. CUNL-5-ERYEJ I IGM SMU 0.0-20.0 (test code=GPIIGM) MYTO-9-QJKTE I IGG SGU 0.0-20.0 (test code=GPIIGG) QTIO-8-RFFNY I IGA 0.5 AHMET 0.0-20.0 The Antiphospholipid [...] HIGH SENSITIVITY CRP mg/dl 0.000-0.747 (test code=CRPHS) [id number] 21:21:00 Test Item Value Reference Range Comments FIBRINOGEN (test code=FIB) 640 MG/DL 160-450 Excess administration of anticoagulants and/or FibrinDegradation Products may affect Fibrinogen value. FACTOR [id number] 21:21:00 Test Item Value Reference Range Comments [...] Antithrombin levels are not clinicallysignificant. PROTEIN C [id number] 21:21:00 Test Item Value Reference Range Comments [...] increased levels of Protein C. PROTEIN C [id number] 21:21:00 Test Item Value Reference Range Comments PROTEIN C ANTIGENIC (test 71 % 70-140 Decreased levels of Protein C code=PROTCAG) Antigen may be found incongenital deficiency, treatment with oral anticoagulants,liver disease, D.I.C. and post surgery. Performed by: [facility] [place] [address] PROTEIN S [id number] 21:21:00 Test Item Value Reference Range Comments [...] with anincreased thrombotic risk. 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 PLQI-9-BSACH I IGM SMU 0.0-20.0 (test code=GPIIGM) MWAC-4-DSPKA I IGG SGU 0.0-20.0 (test code=GPIIGG) UIZU-9-ENUVR I IGA 0.5 AHMET 0.0-20.0 The Antiphospholipid [...] HIGH SENSITIVITY CRP mg/dl 0.000-0.747 (test code=CRPHS) [id number] 14:43:00 Test Item Value Reference Range Comments FIBRINOGEN (test code=FIB) 640 MG/DL 160-450 Excess administration of anticoagulants and/or FibrinDegradation Products may affect Fibrinogen value. FACTOR [id number] 14:43:00 Test Item Value Reference Range Comments [...] Antithrombin levels are not clinicallysignificant. PROTEIN C [id number] 14:43:00 Test Item Value Reference Range Comments [...] increased levels of Protein C. PROTEIN C [id number] 14:43:00 Test Item Value Reference Range Comments PROTEIN C ANTIGENIC (test 71 % 70-140 Decreased levels of Protein C code=PROTCAG) Antigen may be found incongenital deficiency, treatment with oral anticoagulants,liver disease, D.I.C. and post surgery. Performed by: [facility] [address] PROTEIN S [id number] 14:43:00 Test Item Value Reference Range Comments [...] with anincreased thrombotic risk. 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 BMWO-4-ILWVX I IGM SMU <20 (test code=GPIIGM) IIWW-2-PIBCB I IGG UNITS <20 (test code=GPIIGG) IONU-0-WMSVH I IGA 0.0-20.0 (test code=GPIIGA) HOMOCYSTEINE (test TEST NOT PERFORMED 3.2-10.7 code=HOMOCY) umol/L HIGH SENSITIVITY CRP mg/dl 0.000-0.747 (test code=CRPHS) [id number] 14:31:00 Test Item Value Reference Range Comments FIBRINOGEN (test code=FIB) 640 MG/DL 160-450 Excess administration of anticoagulants and/or FibrinDegradation Products may affect Fibrinogen value. FACTOR [id number] 14:31:00 Test Item Value Reference Range Comments [...] Antithrombin levels are not clinicallysignificant. PROTEIN C [id number] 14:31:00 Test Item Value Reference Range Comments [...] increased levels of Protein C. PROTEIN C [id number] 14:31:00 Test Item Value Reference Range Comments PROTEIN C ANTIGENIC (test 71 % 70-140 Decreased levels of Protein C code=PROTCAG) Antigen may be found incongenital deficiency, treatment with oral anticoagulants,liver disease, D.I.C. and post surgery. Performed by: [facility] [address] PROTEIN S [id number] 14:31:00 Test Item Value Reference Range Comments [...] with anincreased thrombotic risk. MTHF REDUCTASE (PCR) [id number] 14:31:00 Test Item Value Reference Range Comments MTHF REDUCTASE (PCR) 677 (test code=MTHFR 677)
[2018-11-20 15:38] VITALS: BP 130/73; O2SAT 99
== END 2018-11-20 14:28 | disposition home or self-care (01) ==
LOC: ER 12:54
PROC: 0JQQ0ZZ Repair Right Foot Subcutaneous Tissue and Fascia, Open Approach (ICD-10-PCS; principal; 2018-11-20)
DX: S91.311A Laceration without foreign body, right foot, initial encounter (principal); W26.0XXA Contact with knife, initial encounter; Y93.89 Activity, other specified; Y92.9 Unspecified place or not applicable; Z88.5 Allergy status to narcotic agent; Z88.6 Allergy status to analgesic agent; Z88.8 Allergy status to other drugs, medicaments and biological substances; Z95.0 Presence of cardiac pacemaker; I10 Essential (primary) hypertension
CPT/HCPCS: 90471; 90714; 99284

== ENCOUNTER 2018-12-07 15:00 | Emergency (ER) | payer OTHER ==
--- OUTSIDE RECORDS SUMMARY | 2018-12-07 15:04 | XMS REPORT | Clinical Summary ---
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
--- OUTSIDE RECORDS SUMMARY | 2018-12-07 15:04 | XMS REPORT | Clinical Summary ---
:1970 Author Organization [facility] Address [address] [place] [address] Care Team Providers Name Role Phone Asked, [...] Jules MD 01/23/2018 Intake Access N/A after 12/06/2017 Social History Tobacco Use Types Packs/Day Years [...] procedure are in the results section. after 12/06/2017 Results POC glucose (01/29/2018 6:14 AM CDT)Only the most recent of21 resultswithin the time period is included. POC glucose 132 (H) 65 - 99 mg/dL [facility] DEPARTMENT OF Comment: PATHOLOGY AND Meter ID: [id number] [employer] Immersion Metal Cleaner: Willie Márquez Specimen Performing Organization Address City/State/[facility] Phone Number [facility] DEPARTMENT OF PATHOLOGY AND [address] [place] [phone] [facility] Prothrombin time with INR (01/28/2018 11:17 AM CDT)Only the most recent of5 resultswithin the time period is included. Prothrombin time 23.2 (H) 12.0 - 15.0 [facility] DEPARTMENT OF sec PATHOLOGY AND GENOMIC MEDICINE INR 2.0 [facility] DEPARTMENT OF Comment: PATHOLOGY AND The International Normalized Ratio (INR) is a therapeutic GENOMIC MEDICINE monitoring tool for patients who are stable on oral anticoagulant therapy. An INR of 2.0-3.0 is suggested for deep vein thrombosis/pulmonary embolism. Specimen Blood Performing Organization Address City/[facility] Phone Number [facility] DEPARTMENT OF PATHOLOGY AND [address] [place] [phone] [employer] Estimated GFR (01/25/2018 5:50 AM CDT) GFR Non Af Amer 90 mL/min/1.73 [facility] DEPARTMENT OF m2 PATHOLOGY AND GENOMIC MEDICINE GFR Af Amer >90 mL/min/1.73 [facility] DEPARTMENT OF Comment: m2 PATHOLOGY AND [...] Americans. Specimen Plasma specimen Performing Organization Address City/State/[facility] Phone Number [facility] DEPARTMENT OF PATHOLOGY AND [address] [place] [address] GENOMIC MEDICINE CBC with platelet and differential (01/25/2018 5:50 AM CDT) WBC 13.93 (H) 4.50 - 11.00 [facility] DEPARTMENT OF k/uL PATHOLOGY AND GENOMIC MEDICINE RBC 4.88 4.40 - 6.00 [facility] DEPARTMENT OF m/uL PATHOLOGY AND GENOMIC MEDICINE HGB 12.7 (L) 14.0 - 18.0 [facility] DEPARTMENT OF g/dL PATHOLOGY AND GENOMIC MEDICINE HCT 39.4 (L) 41.0 - 51.0 % [facility] DEPARTMENT OF PATHOLOGY AND GENOMIC MEDICINE MCV 80.7 (L) 82.0 - 100.0 [facility] DEPARTMENT OF fL PATHOLOGY AND GENOMIC MEDICINE MCH 26.0 (L) 27.0 - 34.0 [facility] DEPARTMENT OF PATHOLOGY AND GENOMIC MEDICINE MCHC 32.2 31.0 - 37.0 [facility] DEPARTMENT OF g/dL PATHOLOGY AND GENOMIC MEDICINE RDW - SD 47.6 37.0 - 55.0 [facility] DEPARTMENT OF NC PATHOLOGY AND GENOMIC MEDICINE MPV 9.6 8.8 - 13.2 [facility] DEPARTMENT OF PATHOLOGY AND GENOMIC MEDICINE Platelet count 281 150 - 400 [facility] DEPARTMENT OF k/uL PATHOLOGY AND GENOMIC MEDICINE Nucleated RBC 0.00 /100 WBC [facility] DEPARTMENT OF PATHOLOGY AND GENOMIC MEDICINE Neutrophils 69.6 (H) 39.0 - 69.0 % [facility] DEPARTMENT OF PATHOLOGY AND GENOMIC MEDICINE Lymphocytes 20.5 (L) 25.0 - 45.0 % [facility] DEPARTMENT OF PATHOLOGY AND GENOMIC MEDICINE Monocytes 7.8 0.0 - 10.0 % [facility] DEPARTMENT OF PATHOLOGY AND GENOMIC MEDICINE Eosinophils 0.9 0.0 - 5.0 % [facility] DEPARTMENT OF PATHOLOGY AND GENOMIC MEDICINE Basophils 0.4 0.0 - 1.0 % [facility] DEPARTMENT OF PATHOLOGY AND GENOMIC MEDICINE Immature granulocytes 0.8Comment: 0.0 - 1.0 % [facility] DEPARTMENT OF "Immature PATHOLOGY AND granulocytes" GENOMIC MEDICINE (promyelocytes , myelocytes, metamyelocytes ) Specimen Blood Performing Organization Address City/[facility] Phone Number [facility] DEPARTMENT OF PATHOLOGY AND [address] [place] [phone] [facility] Basic metabolic panel (01/25/2018 5:50 AM CDT) Pathologist [facility] Sodium 137 135 - 148 mEq/L [facility] DEPARTMENT OF PATHOLOGY AND GENOMIC MEDICINE Potassium 3.9 3.5 - 5.0 mEq/L [facility] DEPARTMENT OF PATHOLOGY AND GENOMIC MEDICINE Chloride 98 98 - 112 mEq/L [facility] DEPARTMENT OF PATHOLOGY AND GENOMIC MEDICINE CO2 26 24 - 31 mEq/L [facility] DEPARTMENT OF PATHOLOGY AND GENOMIC MEDICINE Anion gap 13@ANIO 7 - 15 mEq/L [facility] DEPARTMENT OF PATHOLOGY AND GENOMIC MEDICINE BUN 16 6 - 20 mg/dL [facility] DEPARTMENT OF PATHOLOGY AND GENOMIC MEDICINE Creatinine 0.9 0.7 - 1.2 mg/dL [facility] DEPARTMENT OF PATHOLOGY AND GENOMIC MEDICINE Glucose 154 (H) 65 - 99 mg/dL [facility] DEPARTMENT OF PATHOLOGY AND GENOMIC MEDICINE Calcium 9.7 8.3 - 10.2 mg/dL [facility] DEPARTMENT OF PATHOLOGY AND GENOMIC MEDICINE Specimen Plasma specimen Performing Organization Address [facility] Phone Number [facility] DEPARTMENT OF PATHOLOGY AND [address] [place] [phone] [facility] ECG 12 lead (01/24/2018 7:11 PM CDT) Ventricular rate 94 [facility] MUSE Atrial rate 94 [facility] MUSE LA interval 162 [facility] MUSE QRSD interval 146 [facility] M[facility] QT interval 414 [facility] QTC interval 517 [facility] M[facility] P axis 1 33 [facility] M[facility] QRS axis 1 -16 [facility] M[facility] T wave axis 17 [facility] MUSE EKG impression Normal sinus rhythm-Right bundle branch block-Lateral infarct ( cited on or before 30-JUL-2017)-Inferior infarct (cited on or before 27-JUL-2017 )-Abnormal ECG-In automated comparison with ECG of 30-JUL-2017 09:06,-No significant change was [facility] MUSE found- Specimen Performing Organization Address City/[facility] Phone Number [facility] MUSE [address] [place] [address] after 12/06/2017 Insurance Payer Benefit Plan / Subscriber ID Effective Phone Address Type Group Dates COMMERCIAL MISC MISC COMMERCIAL xxxxxxxxxxxx 2017-Prese Commercial nt MISC MEDICAID MISC MEDICAID xxxxxxxxxxxx 2017-Prese HMO REPLACEMENT REPLACEMENT nt Advance Directives Patient has advance care planning documents, and code status on file. For more information, please contact:[place] [address] Code Status Date Activated Date Inactivated Comments Full Code 01/24/2018 5:07 PM 01/29/2018 3:21 PM Code Status decision reached by: Patient Full Code 07/27/2017 10:23 AM 07/31/2017 4:58 PM Code Status decision reached by: Patient Full Code 07/27/2017 5:07 AM 07/27/2017 10:23 AM Code Status decision reached by: Patient
--- OUTSIDE RECORDS SUMMARY | 2018-12-07 15:12 | XMS REPORT | Continuity of Care Document ---
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 [place] Congestive heart Resolved Problem 05/20/2016 2L fluid failure<sup>1</sup> restrictio [place] n/24hrs Diabetes Resolved Problem 05/20/2016 [facility] Hypercholesteremia Resolved Problem 05/20/2016 [facility] Hypertension Resolved Problem 05/20/2016 [facility] Kidney stone Resolved Problem 05/20/2016 [facility] Heart Resolved Problem 05/20/2016 December 04, attack<sup>2</sup> 2016 [place] Bundle branch block, Resolved Problem 05/20/2016 right [place] Sleep apnea Resolved Problem 05/20/2016 [facility] TUBULO-INTERSTITIAL Active [facility] NEPHRITIS, NOT [facility] [place] CHEST PAIN, Active [facility] UNSPECIFIED [place] Medications Medication Details Route Status Patient Ordering Order Source Instructions Provider Date Aspirin 81 mg, 1 tab, Inactive Route: PO, Drug 2015 [place] form: ECTAB, ONCE, Dosing Weight 128.636, kg, Priority: STAT, Start date: 05/17/16 17:16:00 [facility] [place], Stop date: 05/17/16 17:16:00 CSTNotes: Do not crush or chew. (Same As: Ecotrin) Saline Flush 10 mL, Route: Inactive 0.9% IVP, Drug Form: 2015 [place] INJ, Dosing Weight 128.636, kg, PRN, PRN Line Flush, Start date: 05/17/16 15:48:00 [facility] [place], Duration: 30 day, Stop date: 06/16/16 15:47:00 CSTNotes: (Same as: BD Posiflush) Plavix 75 mg, 1 tab, No Longer Route: PO, Drug Active 2015 [place] form: TAB, Daily, Dosing Weight 131.7, kg, Start date: 05/07/16 9:00:00 [facility] [place], Duration: 30 day, Stop date: 06/05/16 9:00:00 CSTNotes: (Same As: Plavix) metoprolol 25 mg 25 mg=1 tab, PO, Active oral tablet, Daily, # 30 tab, 2015 [place] extended release 0 Refill(s) Protonix 40 mg, 1 tab, Inactive Route: PO, Drug 2015 [place] form: ECTAB, Before Dinner, Dosing Weight 131.7, kg, Start date: 05/06/16 16:30:00 [facility] [place], Duration: 30 day, Stop date: 06/04/16 16:30:00 CSTNotes: Tablet should not be chewed or crushed. (Same as: Protonix) Lisinopril 2.5 mg, 0.5 tab, Inactive Route: PO, Drug 2015 [place] form: TAB, Daily, Dosing Weight 131.7, kg, Start date: 05/06/16 9:00:00 [place] [place], Duration: 30 day, Stop date: 06/04/16 9:00:00 CSTNotes: (Same as: Prinivil, Zestril) Aspirin 325 MG 325 mg, 1 tab, Inactive Oral Tablet Route: PO, Drug 2015 [place] form: TAB, Daily, Dosing Weight 127.273, kg, Start date: 05/06/16 9:00:00 [place] [place], Duration: 30 day, Stop date: 06/04/16 9:00:00 CSTNotes: Take with food. atorvastatin 40 40 mg=1 tab, PO, Active mg oral tablet Bedtime, # 90 2015 [place] tab, 1 Refill(s) Alprazolam 1 MG 1 mg, 2 tab, No Longer Oral Tablet Route: PO, Drug Active 2015 [place] [Xanax] form: TAB, Q8H, Dosing Weight 131.7, kg, PRN Anxiety, Start date: 05/05/16 22:49:00 [employer] [place], Duration: 30 day, Stop date: 06/04/16 22:48:00 CSTNotes: With food or milk (Same as: Xanax) Lipitor 80 mg, 2 tab, No Longer Route: PO, Drug Active 2015 [place] form: TAB, Bedtime, Dosing Weight 127.273, kg, Start date: 05/05/16 21:00:00 [place] [place], Duration: 30 day, Stop date: 06/03/16 21:00:00 CSTNotes: (Same as: Lipitor) Clindamycin 300 mg, 2 cap, No Longer Route: PO, Drug Active 2015 [place] form: CAP, ABXQ6H, Dosing Weight 127.273, kg, Start date: 05/05/16 21:00:00 [place] [place], Stop date: 06/04/16 15:00:00 CSTNotes: (Same As: Cleocin) Saline Flush 10 ml, Route: No Longer 0.9% IVP, Drug Form: Active 2015 [place] INJ, Dosing Weight 127.273, kg, Q12H, Start date: 05/05/16 21:00:00 [place] [place], Duration: 30 day, Stop date: 06/04/16 9:00:00 CSTNotes: preservative free. Insulin, Aspart, 1 unit, 0.01 mL, No Longer Human Route: SUB-Q, Active 2015 [place] Drug form: SOLN, Bedtime, Dosing Weight 127.273, kg, PRN Blood Glucose Results, Start date: 05/05/16 20:27:00 RAIL[employer] [place], Duration: 30 day, Stop date: 06/04/16 20:26:00 CSTNotes: Roll in palms of hands gently; Do not shake vigorously. (Same as: NovoLOG) "single patient use only" WASTE: F/P - Black; E - Municipal Trash Bin Stable for 28 days at room temperature. Expires in days from Da te Glucagon 1 mg, Route: IM, No Longer Drug form: Active 2015 [place] PDR/INJ, PRN, Dosing Weight 127.273, kg, PRN Blood Glucose Results, Start date: 05/05/16 20:27:00 [employer]IL[employer] [place], Duration: 30 day, Stop date: 06/04/16 20:26:00 [facility] [place] Dextrose 50% 12.5 gm, 25 mL, No Longer Syringe Route: IVP, Drug Active 2015 [place] Form: INJ, Dosing Weight 127.273, kg, PRN, PRN Blood Glucose Results, Start date: 05/05/16 20:27:00 [employer] [place], Duration: 30 day, Stop date: 06/04/16 20:26:00 [employer] [place] Morphine 2 mg, 1 mL, No Longer Route: IVP, Drug Active 2015 [place] form: INJ, Q2H, Dosing Weight 127.273, kg, PRN as needed for chest pain, Priority: STAT, Start date: 05/05/16 20:00:00 [employer] [place], Duration: 30 day, Stop date: 06/04/16 19:59:00 CSTNotes: (Same as:MORPhine Sulfate) Plavix 75 mg, 1 tab, Inactive Route: PO, Drug 2015 [place] form: TAB, ONCE, Dosing Weight 127.273, kg, Priority: STAT, Start date: 05/05/16 19:58:00 RA[place] [place], Stop date: 05/05/16 19:58:00 CSTNotes: (Same As: Plavix) Saline Flush 10 ml, Route: No Longer 0.9% IVP, Drug Form: Active 2015 [place] INJ, Dosing Weight 127.273, kg, PRN, PRN Line Flush, Start date: 05/05/16 19:55:00 [place] [place], Duration: 30 day, Stop date: 06/04/16 19:54:00 CSTNotes: (Same as: BD Posiflush) Albuterol 0.833 3 ml, Route: No Longer MG/ML / NEB, Drug Form: Active 2015 [place] Ipratropium SOLN, Dosing [place] 0.167 Weight 127.273, MG/ML Inhalant kg, PRN, PRN Solution Respiratory Protocol, Start date: 05/05/16 19:55:00 [employer] [place], Duration: 30 day, Stop date: 06/04/16 19:54:00 CSTNotes: (Same as: Duoneb) Nystatin 100 1 appl, Route: No Longer UNT/MG Topical TOP, PRN, Drug Active 2015 [place] Powder form: PWDR, PRN For Fungal Prophylaxis, Start date: 05/05/16 19:55:00 RAIL[employer] [place], Duration: 30 day, Stop date: 06/04/16 19:54:00 [...] 500 mL, Start date: 05/05/16 19:43:00 RAIL[employer] [place], Duration: 30 day, Stop date: 06/04/16 19:42:00 [employer] [place] Heparin 60 Route: IVP, PRN, No Longer unit/kg Bolus 5,800 unit, 5.8 Active 2015 [place] (Heparin Dosing mL, Drug form: Weight) INJ, PRN, Heparin Protocol, Start date: 05/05/16 19:43:00 [employer] [place] Stop date: 06/04/16 19:42:00 [facility] [place] Heparin 30 Route: IVP, PRN, No Longer unit/kg Bolus 2,900 unit, 2.9 Active 2015 [place] (Heparin Dosing mL, Drug form: Weight) INJ, PRN, Heparin Protocol, Start date: 05/05/16 19:43:00 [employer] [place] Stop date: 06/04/16 19:42:00 [employer] [place] Heparin - one 4,000 unit, 4 Inactive time bolus for mL, Route: IVP, 2016 [place] ACS Drug form: INJ, ONCE, Dosing Weight 127.273, kg, Priority: STAT, Start date: 05/05/16 19:43:00 RA[place] [place], Stop date: 05/05/16 19:43:00 [employer] [place] Morphine 4 mg, 1 mL, Inactive Route: IVP, Drug 2015 [place] form: INJ, ONCE, Dosing Weight 127.273, kg, Priority: STAT, Start date: 05/05/16 19:25:00 RA[place] [place], Stop date: 05/05/16 19:25:00 CSTNotes: (Same as:MORPhine Sulfate) Nitroglycerin 1 inch, Route: Inactive 0.02 MG/MG TOP, Dosing 2015 [place] Topical Ointment Weight 127.273, kg, ONCE, STAT, Start date: 05/05/16 17:40:00 RAIL[employer] [place], Stop date: 05/05/16 17:40:00 [employer] [place] Aspirin 81 MG 243 mg, Route: Inactive Chewable Tablet PO, Drug form: 2015 [place] CHEWTAB, ONCE, Dosing Weight 127.273, kg, Priority: STAT, Start date: 05/05/16 17:17:00 RAIL[employer] [place], Stop date: 05/05/16 17:17:00 [employer] [place] Morphine 4 mg, Route: Inactive IVP, ONCE, 2015 [place] Dosing Weight 127.273, kg, Priority: STAT, Start date: 05/05/16 17:15:00 RA[place] [place], Stop date: 05/05/16 17:15:00 [employer] [place] Saline Flush 10 mL, Route: No Longer 0.9% IVP, Drug Form: Active 2015 [place] INJ, Dosing Weight 128.182, kg, PRN, PRN Line Flush, Start date: 05/05/16 16:55:00 [employer] [place], Duration: 30 day, Stop date: 06/04/16 16:54:00 CSTNotes: preservative free. Acetaminophen 1 - 2 tab, PO, No Longer 300 MG / Codeine Q4H, PRN Pain, X Active 2015 [place] Phosphate 30 MG 2 day, # 20 tab, Oral Tablet 0 Refill(s) [Tylenol with Codeine #3] Morphine 4 mg, 1 mL, Inactive Route: IVP, Drug 2015 [place] form: INJ, ONCE, Dosing Weight 128.182, kg, Priority: STAT, Start date: 04/25/16 19:51:00 CDT, Stop date: 04/25/16 19:51:00 CDTNotes: (Same as:MORPhine Sulfate) Zofran 4 mg, 2 mL, Inactive Route: IVP, Drug 2015 [place] form: INJ, ONCE, Dosing Weight 128.182, kg, Priority: STAT, Start date: 04/25/16 18:23:00 CDT, Stop date: 04/25/16 18:23:00 CDTNotes: (Same as: Zofran) MEDICATION WASTE Product Size: 4 mg Product Wasted: ___ mg Morphine 4 mg, 1 mL, Inactive Route: IVP, Drug 2015 [place] form: INJ, ONCE, Dosing Weight 128.182, kg, Priority: STAT, Start date: 04/25/16 18:23:00 CDT, Stop date: 04/25/16 18:23:00 CDTNotes: (Same as:MORPhine Sulfate) Saline Flush 10 mL, Route: Inactive 0.9% IVP, Drug Form: 2015 [place] INJ, Dosing Weight 129.091, kg, PRN, PRN Line Flush, Start date: 04/25/16 18:07:00 CDT, Duration: 30 day, Stop date: 05/25/16 17:06:00 CSTNotes: (Same as: BD Posiflush) Acetaminophen 1 tab, PO, Q6H, Active 300 MG / Codeine PRN Pain, X 5 2015 [place] Phosphate 30 MG day, # 20 tab, 0 Oral Tablet Refill(s) Morphine 4 mg, Route: Inactive IVP, ONCE, 2015 [place] Dosing Weight 129.091, kg, Priority: STAT, Start date: 03/05/16 8:44:00 CDT, Stop date: 03/05/16 8:44:00 CDT Ondansetron 4 mg, Route: Inactive IVP, Drug form: 2015 [place] INJ, ONCE, Dosing Weight 129.091, kg, Priority: STAT, Start date: 03/05/16 7:35:00 CDT, Stop date: 03/05/16 7:35:00 CDT Aspirin 324 mg, Route: Inactive PO, ONCE, Dosing 2015 [place] Weight 129.091, kg, Priority: STAT, Start date: 03/05/16 7:22:00 CDT, Stop date: 03/05/16 7:22:00 CDT Morphine 2 mg, Route: Inactive IVP, ONCE, 2015 [place] Dosing Weight 129.091, kg, Priority: STAT, Start date: 03/05/16 7:22:00 CDT, Stop date: 03/05/16 7:22:00 CDT Saline Flush 10 mL, Route: Inactive 0.9% IVP, Drug Form: 2015 [place] INJ, Dosing Weight 129.091, kg, PRN, PRN Line Flush, Start date: 03/05/16 7:22:00 CDT, Duration: 30 day, Stop date: 04/04/16 7:21:00 CDTNotes: (Same as: BD Posiflush) Dilaudid 0.5 mg, 0.5 mL, Inactive Route: IVP, Drug 2015 [place] form: INJ, ONCE, Dosing Weight 128.636, kg, Priority: STAT, Start date: 03/02/16 7:40:00 CDT, Stop date: 03/02/16 7:40:00 CDTNotes: Same as: Dilaudid Ketorolac 30 mg, 1 mL, Inactive Route: IVP, Drug 2015 [place] form: INJ, ONCE, Dosing Weight 128.636, kg, Priority: STAT, Start date: 03/02/16 5:25:00 CDT, Stop date: 03/02/16 5:25:00 CDTNotes: (Same as:Toradol) IV bolus must be given >15 seconds. Give IM administration slowly and deeply into the muscle. Not for use > 4 days MEDICATION WASTE Product Size: 30 mg Product Wasted: ___ mg Morphine 4 mg, 1 mL, Inactive Route: IVP, Drug 2015 [place] form: INJ, ONCE, Dosing Weight 128.636, kg, Priority: STAT, Start date: 03/02/16 5:25:00 CDT, Stop date: 03/02/16 5:25:00 CDTNotes: (Same as:MORPhine Sulfate) Ondansetron 4 mg, 2 mL, Inactive Route: IVP, Drug 2015 [place] form: INJ, ONCE, Dosing Weight 128.636, kg, Priority: STAT, Start date: 03/02/16 5:25:00 CDT, Stop date: 03/02/16 5:25:00 CDTNotes: (Same as: Zofran) MEDICATION WASTE Product Size: 4 mg Product Wasted: ___ mg Saline Flush 10 mL, Route: Inactive 0.9% IVP, Drug Form: 2015 [place] INJ, Dosing Weight 128.636, kg, PRN, PRN Line Flush, Start date: 03/02/16 5:25:00 CDT, Duration: 30 day, Stop date: 04/01/16 5:24:00 CDTNotes: (Same as: BD Posiflush) Sodium Chloride 1,000 mL, 2,000 Inactive 0.154 MEQ/ML ml/hr, Infuse 2015 [place] Injectable Over: 30 Solution minutes, Route: IV, 1,000, Drug form: INJ, ONCE, Priority: STAT, Dosing Weight 128.636 kg, Start date: 03/02/16 5:25:00 CDT, Duration: 1 doses or times, Stop date: 03/02/16 5:25:00 CDT Acetaminophen 1 tab, PO, Q6H, Active 300 MG / Codeine PRN Pain, # 28 2015 [place] Phosphate 30 MG tab, 0 Refill(s) Oral Tablet [Tylenol with Codeine #3] Protonix 40 mg, 1 tab, No Longer Route: PO, Drug Active 2015 [place] form: ECTAB, Before Breakfast, Dosing Weight 129.545, kg, Start date: 02/18/16 7:30:00 CDT, Duration: 30 day, Stop date: 03/18/16 7:30:00 CDTNotes: Tablet should not be chewed or crushed. (Same as: Protonix) Lipitor 80 mg, 2 tab, No Longer Route: PO, Drug Active 2015 [place] form: TAB, Bedtime, Dosing Weight 129.545, kg, Start date: 02/17/16 21:00:00 CDT, Duration: 30 day, Stop date: 03/17/16 21:00:00 CDTNotes: (Same as: Lipitor) Morphine 2 mg, 1 mL, No Longer Route: IVP, Drug Active 2015 [place] form: INJ, Q4H, Dosing Weight 129.545, kg, PRN Pain Score 7-10, Start date: 02/17/16 11:54:00 CDT, Duration: 30 day, Stop date: 03/18/16 11:53:00 CDTNotes: (Same as:MORPhine Sulfate) Lovenox 40 mg, 0.4 mL, No Longer Route: SUB-Q, Active 2015 [place] Drug form: INJ, [id number], Dosing Weight 129.545, kg, Start date: 02/17/16 10:00:00 CDT, Duration: 30 day, Stop date: 03/17/16 10:00:00 CDTNotes: (Same as: Lovenox) Lisinopril 2.5 mg, 0.5 tab, No Longer Route: PO, Drug Active 2015 [place] form: TAB, Daily, Dosing Weight 129.545, kg, Start date: 02/17/16 9:55:00 CDT, Duration: 30 day, Stop date: 03/18/16 9:00:00 CDTNotes: (Same as: Prinivil, Zestril) Imdur 30 mg, 1 tab, No Longer Route: PO, Drug Active 2015 [place] form: ERTAB, QAM, Dosing Weight 129.545, kg, Start date: 02/17/16 9:54:00 CDT, Duration: 30 day, Stop date: 03/18/16 9:00:00 CDTNotes: (Same as:Imdur) "Do Not Crush" Take on empty stomach/ full glass of water. Do not crush Plavix 75 mg, 1 tab, No Longer Route: PO, Drug Active 2015 [place] form: TAB, Daily, Dosing Weight 129.545, kg, Start date: 02/17/16 9:54:00 CDT, Duration: 30 day, Stop date: 03/18/16 9:00:00 CDTNotes: (Same As: Plavix) Aspirin 81 MG 81 mg, 1 tab, No Longer Enteric Coated Route: PO, Drug Active 2015 [place] Tablet form: ECTAB, Daily, Dosing Weight 129.545, kg, Start date: 02/17/16 9:54:00 CDT, Duration: 30 day, Stop date: 03/18/16 9:00:00 CDTNotes: Do not crush or chew. (Same As: Ecotrin) Zofran ODT 4 mg, 1 tab, No Longer Route: PO, Drug Active 2015 [place] form: TABDIS, Q12H, Dosing Weight 129.545, kg, PRN Nausea, Start date: 02/17/16 9:25:00 CDT, Duration: 30 day, Stop date: 03/18/16 9:24:00 CDTNotes: (Same as: Zofran ODT) Nitroglycerin 0.4 mg, 1 tab, No Longer 0.4 MG Route: SL, Drug Active 2015 [place] Sublingual form: TAB, Tablet Q5Min, Dosing [Nitrostat] Weight 129.545, kg, PRN Chest Pain, Start date: 02/17/16 9:25:00 CDT, Duration: 30 day, Stop date: 03/18/16 9:24:00 CDTNotes: (Same as:Nitroquick, Nitrostat) "Do Not Crush" Sublingual tablet Alprazolam 1 MG 1 mg, 1 tab, No Longer Oral Tablet Route: PO, Drug Active 2015 [place] [Xanax] form: TAB, Q8H, Dosing Weight 129.545, kg, PRN Anxiety, Start date: 02/17/16 9:23:00 CDT, Duration: 30 day, Stop date: 03/18/16 9:22:00 CDTNotes: With food or milk (Same as: Xanax) pneumococcal 0.5 mL, Route: Inactive capsular IM, Drug Form: 2016 [place] polysaccharide INJ, Daily, type 1 vaccine / [...] No Longer Disintegrating Q12H, PRN Active 2015 [place] Tablet [Zofran] Nausea, 0 Refill(s) Aspirin 81 MG 81 mg=1 tab, PO, Active Enteric Coated Daily, # 90 tab, 2015 [place] Tablet 3 Refill(s) Nitroglycerin 0.4 mg=1 tab, No Longer 0.4 MG SL, Q5Min, PRN Active 2015 [place] Sublingual Chest Pain, # Tablet 100 tab, 0 [Nitrostat] Refill(s) pantoprazole 40 40 mg=1 tab, PO, Active MG Enteric Daily, # 30 tab, 2016 [place] Coated Tablet 0 Refill(s) [Protonix] 24 HR Isosorbide 30 mg=1 tab, PO, Active Mononitrate 30 QAM, # 30 tab, 0 2015 [place] MG Extended Refill(s) Release Tablet [Imdur] Hydroxyzine 25 mg=1 tab, PO, No Longer Hydrochloride 25 Bedtime, PRN Active 2016 [place] MG Oral Tablet Sleep, # 30 tab, 0 Refill(s) Furosemide 20 MG 20 mg=1 tab, PO, Active Oral Tablet Daily, # 30 tab, 2016 [place] 0 Refill(s) Potassium 20 mEq=1 tab, Active Chloride 20 MEQ PO, Daily, # 90 2016 [place] Extended Release tab, 1 Refill(s) Tablet [Klor-Con] Alprazolam 1 MG 1 mg=1 tab, PO, Active Oral Tablet Q8H, PRN 2016 [place] [Xanax] Anxiety, 0 Refill(s) Metformin 1 tab, PO, BID, Active hydrochloride # 60 tab, 0 2015 [place] 500 MG / Refill(s) repaglinide 1 MG Oral Tablet Acetaminophen 1 tab, PO, Q6H, No Longer 300 MG / Codeine PRN Pain, # 28 Active 2016 [place] Phosphate 30 MG tab, 0 Refill(s) Oral Tablet [Tylenol with Codeine #3] lisinopril 2.5 2.5 mg=1 tab, Active mg oral tablet PO, Daily, # 30 2016 [place] tab, 0 Refill(s) clopidogrel 75 75 mg=1 tab, PO, Active MG Oral Tablet Daily, # 30 tab, 2016 [place] [Plavix] 0 Refill(s) atorvastatin 80 80 mg=1 tab, PO, Active MG Oral Tablet Bedtime, # 30 2016 [place] [Lipitor] tab, 0 Refill(s) Ceftriaxone 1 gm, Route: Inactive IVPB, Drug form: 2015 [place] PDR/INJ, ONCE, Dosing Weight 129.545, kg, Priority: STAT, Start date: 02/17/16 7:01:00 CDT, Stop date: 02/17/16 7:01:00 CDT Dilaudid 0.5 mg, Route: Inactive IVP, ONCE, 2015 [place] Dosing Weight 129.545, kg, Priority: STAT, Start date: 02/17/16 6:28:00 CDT, Stop date: 02/17/16 6:28:00 CDT Zofran 4 mg, Route: Inactive IVP, Drug form: 2015 [place] INJ, ONCE, Dosing Weight 129.545, kg, Priority: STAT, Start date: 02/17/16 5:32:00 CDT, Stop date: 02/17/16 5:32:00 CDT Dilaudid 0.5 mg, Route: Inactive IVP, ONCE, 2015 [place] Dosing Weight 129.545, kg, Priority: STAT, Start date: 02/17/16 5:32:00 CDT, Stop date: 02/17/16 5:32:00 CDT Saline Flush 10 mL, Route: Inactive 0.9% IVP, Drug Form: 2015 [place] INJ, kg, PRN, PRN Line Flush, Start date: 02/17/16 5:19:00 CDT, Duration: 30 day, Stop date: 03/18/16 5:18:00 CDTNotes: (Same as: BD Posiflush) Allergies, Adverse Reactions, Alerts Substance Category Reaction Severity Reaction Status Date Comments Source type Reported beta Assertion Drug Active blockers allergy [place] Flomax Assertion Drug Active allergy [place] Stadol Assertion Drug Active MH allergy [place] traMADol Assertion Drug Active MH allergy [place] Immunizations Immunization Date Given Site Status Last Updated Comments Source pneumococcal 02/17/2016 Not Given [facility] 23-valent vaccine Results Order Name Results Value Reference Date Interpretation Comments Source Range URINE AND UA Mucus Few /LPF None Seen 05/17 STOOL /LPF [place] URINE AND UA Leuk Est Negative Negative 05/17 STOOL [place] (05/17/16 5:16 PM) URINE AND UA Bili Negative Negative 05/17 STOOL [place] *NA* (05/17/16 5:16 PM) URINE AND UA Ketones Negative Negative 05/17 STOOL mg/dL mg/dL [place] URINE AND UA Nitrite Negative Negative 05/17 STOOL [place] (05/17/16 5:16 PM) URINE AND UA 0.2 EU/dL 0.1 - 1.0 05/17 STOOL Urobilinogen [place] URINE AND UA Turbidity Clear Clear 05/17 STOOL [place] (05/17/16 5:16 PM) URINE AND UA Blood Negative Negative 05/17 STOOL [place] (05/17/16 5:16 PM) URINE AND UA Glucose Negative Negative 05/17 [place]OOL mg/dL mg/dL [place] URINE AND UA Protein Negative Negative 05/17 [place]OOL mg/dL mg/dL [place] URINE AND UA pH 6.5 5.0 - 8.0 05/17 STOOL [place] URINE AND UA Spec Grav 1.020 <=1.030 05/17 STOOL [place] URINE AND UA Color Yellow Yellow 05/17 STOOL [place] *NA* (05/17/16 5:16 PM) URINE AND UA Sq Epi Rare /LPF Few /LPF 05/17 STOOL [place] URINE AND UA Bacteria Occasional None Seen 05/17 STOOL /HPF /HPF [place] URINE AND UA RBC 0-2 /HPF 0 - 2 05/17 STOOL [place] URINE AND UA WBC 0-2 /HPF None Seen 05/17 STOOL /HPF /2015 [place] CARDIAC Total CK 74 unit/L 12 - 191 05/17 ENZYMES [place] CARDIAC CK MB 0.8 ng/mL 0.5 - 3.6 05/17 ENZYMES [place] CARDIAC Troponin-I null 0.00 - 05/17 ENZYMES 0.40 [place] CARDIAC CK-MB INDEX 1.1 0.0 - 2.5 05/17 [place] CHEM PANEL eGFR 79 05/17 Result Comment: [...] is not recommended in the following populations: [place] 3m2 Individuals with unstable creatinine concentrations, including [...] Lvl 106 meq/L 95 - 109 05/17 [place] CHEM PANEL CO2 28 meq/L 24 - 32 05/17 [place] CHEM PANEL Calcium Lvl 8.8 mg/dL 8.5 - 10.5 05/17 [place] CHEM PANEL Bili Total 0.4 mg/dL 0.2 - 1.3 05/17 [place] CHEM PANEL AGAP 9.7 meq/L 10.0 - 05/17 20.0 [place] CHEM PANEL B/C Ratio 14 6 - 25 05/17 [place] CHEM PANEL ASPARTATE 14 unit/L 0 - 37 05/17 MH [place] CHEM PANEL Total 7.7 g/dL 6.4 - 8.4 05/17 [place] CHEM PANEL Globulin 4.4 g/dL 2.7 - 4.2 05/17 [place] CHEM PANEL A/G Ratio 0.8 0.7 - 1.6 11 [place] CHEM PANEL Glucose Lvl 148 mg/dL 70 - 99 05/17 [place] CHEM PANEL BUN 15 mg/dL 7 - 22 05/17 [place] CHEM PANEL Creatinine 1.11 mg/dL 0.50 - 05/17 MH Lvl 1.40 [place] CHEM PANEL Sodium Lvl 140 meq/L 135 - 145 05/17 [place] CHEM PANEL Potassium 3.7 meq/L 3.5 - 5.1 05/17 MH Lvl [place] CHEM PANEL Albumin Lvl 3.3 g/dL 3.5 - 5.0 05/17 [place] CHEM PANEL Alk Phos 129 unit/L 39 - 136 05/17 [place] CHEM PANEL ALANINE 30 unit/L 0 - 65 05/17 AMINOTRANS [place] RAS HEMATOLOGY MPV 7.3 fL 7.4 - 10.4 05/17 [place] HEMATOLOGY Platelet 281 K/CMM 133 - 450 05/17 [place] HEMATOLOGY RBC X 10x6 5.30 M/CMM 4.70 - 05/17 MH 6.10 [place] HEMATOLOGY WBC X 10x3 10.5 K/CMM 3.7 - 10.4 05/17 [place] HEMATOLOGY Hgb 12.4 g/dL 14.0 - 05/17 MH 18.0 [place] HEMATOLOGY Hct 36.8 % 42.0 - 05/17 MH 54.0 [place] HEMATOLOGY MCV 69.4 fL 80.0 - 05/17 MH 94.0 [place] HEMATOLOGY MCH 23.4 pg 27.0 - 05/17 MH 31.0 [place] HEMATOLOGY MCHC 33.7 g/dL 32.0 - 05/17 MH 36.0 /2015 [place] HEMATOLOGY RDW 17.1 % 11.5 - 05/17 MH 14.5 /2015 [place] HEMATOLOGY aPTT 35.4 s 22.9 - 05/17 35.8 /2015 [place] HEMATOLOGY PROTIME 13.1 s 12.0 - 05/17 MH 14.7 /2015 [place] HEMATOLOGY INR 0.97 0.85 - 05/17 MH 1.17 /2015 [place] HEMATOLOGY Eosinophils 1.1 % 0.0 - 4.0 05/17 [place] HEMATOLOGY Monocytes 6.7 % 2.0 - 12.0 05/17 [place] HEMATOLOGY Segs-Bands # 7.2 K/CMM 1.5 - 8.1 05/17 [place] HEMATOLOGY Basophils 1.1 % 0.0 - 1.0 05/17 [place] HEMATOLOGY Lymphocytes 2.4 K/CMM 1.0 - 5.5 05/17 # /2015 [place] HEMATOLOGY Monocytes # 0.7 K/CMM 0.0 - 0.8 05/17 [place] HEMATOLOGY Eosinophils 0.1 K/CMM 0.0 - 0.5 05/17 # /2015 [place] HEMATOLOGY Microcyte 2+ None Seen 05/17 [facility] *ABN* (05/17/16 4:01 PM) HEMATOLOGY Basophils # 0.1 K/CMM 0.0 - 0.2 05/17 [facility] Lymphocytes 22.3 % 20.0 - 05/17 40.0 [facility] Segs 68.8 % 45.0 - 05/17 75.0 [facility] Chest 1view Chest 1view Portable chest: The cardiomediastinal silhouette and pulmonary vasculature are within normal limits. The lungs and pleural spaces are clear. There are no acute osseous abnormalities. There is no significant change compared to 05/05/2016. 05/17 - [facility] DX DX /2015 - [place] IMPRESSION: Read by: Rizwan Barnhart MD Dictated Date/time: 05/17/16 16:37 Electronically Signed by: Rizwan Barnhart MD 05/17/16 16:38 FINAL REPORT No acute radiographic abnormality in the chest. [id number] CARDIAC Troponin-I null 0.00 - 05/06 ENZYMES 0.40 [facility] aPTT 50.1 s 22.9 - 05/06 MH 35.8 2016 [facility] ELECTROLYTE AGAP 10.8 meq/L 10.0 - 05/06 S 20.0 [facility] ELECTR[facility] CO2 28 meq/L 24 - 32 05/06 S [facility] Chloride Lvl 105 meq/L 95 - 109 05/06 S [facility]LECTR[facility] Calcium Lvl 8.7 mg/dL 8.5 - 10.5 05/06 S [facility] ELECTROLYTE eGFR 103 05/06 Result Comment: The [...] is not recommended in the following populations: [address] Individuals with unstable creatinine concentrations, including [...] 123 mg/dL 70 - 99 05/06 S [facility] Creatinine 0.86 mg/dL 0.50 - 05/06 S Lvl 1.40 [facility] BUN 18 mg/dL 7 - 22 05/06 S [facility] Potassium 3.8 meq/L 3.5 - 5.1 05/06 S Lvl [facility] Sodium Lvl 140 meq/L 135 - 145 05/06 S [facility]AT[facility] Microcyte 2+ None Seen 05/06 [facility] *ABN* (05/06/16 2:42 AM) HEMATOLOGY Eosinophils 0.2 K/CMM 0.0 - 0.5 05/06 # /2015 [facility] Monocytes # 0.8 K/CMM 0.0 - 0.8 05/06 [facility] Monocytes 7.9 % 2.0 - 12.0 05/06 [facility] Lymphocytes 2.5 K/CMM 1.0 - 5.5 05/06 MH # /2016 [facility]AT[facility] Segs-Bands # 6.5 K/CMM 1.5 - 8.1 05/06 [facility] HEMATOLOGY Basophils 0.4 % 0.0 - 1.0 05/06 MH [facility] HEMAT[facility] Eosinophils 1.7 % 0.0 - 4.0 05/06 /2015 [facility]EMAT[facility] Lymphocytes 24.8 % 20.0 - 05/06 MH 40.0 [facility] HEMAT[facility] Segs 65.2 % 45.0 - 05/06 MH 75.0 [facility]EMAT[facility] RBC X 10x6 5.11 M/CMM 4.70 - 05/06 MH 6.10 [facility]EMAT[facility] Hct 36.2 % 42.0 - 05/06 MH 54.0 [facility]EMAT[facility] Hgb 11.8 g/dL 14.0 - 05/06 MH 18.0 [facility] HEMAT[facility] Platelet 272 K/CMM 133 - 450 05/06 [facility]EMAT[facility] RDW 17.1 % 11.5 - 05/06 14. [facility]EMAT[facility] MPV 7.8 fL 7.4 - 10.4 05/06 /2015 [facility]EMAT[facility] WBC X 10x3 9.9 K/CMM 3.7 - 10.4 05/06 [facility]EMAT[facility] MCHC 32.5 g/dL 32.0 - 05/06 MH 36.0 [facility] HEMAT[facility] MCH 23.0 pg 27.0 - 05/06 31.0 [facility]EMAT[facility] MCV 70.8 fL 80.0 - 05/06 94.0 [facility] HEMAT[facility] PROTIME 13.4 s 12.0 - 05/06 14. [facility] HEMAT[facility] INR 1.00 0.85 - 05/06 MH 1.17 [facility] HEMAT[facility] aPTT 49.1 s 22.9 - 05/06 35.8 [facility] URINE AND UA Bacteria None Seen None Seen 05/06 STOOL [facility] (05/05/16 10:09 PM) URINE AND UA Blood Negative Negative 05/06 STOOL [facility] (05/05/16 10:09 PM) URINE AND UA RBC 0-2 /HPF 0 - 2 05/06 [facility] URINE AND UA WBC None Seen None Seen 05/06 STOOL [facility] (05/05/16 10:09 PM) URINE AND UA Sq Epi None Seen Few 05/06 ST[facility]OL [facility] (05/05/16 10:09 PM) URINE AND UA Leuk Est Negative Negative 05/06 ST[facility]OL [facility] (05/05/16 10:09 PM) URINE AND UA 0.2 EU/dL 0.1 - 1.0 05/06 [facility] Urobilinogen [facility] URINE AND UA Nitrite Negative Negative 05/06 STOOL [facility] (05/05/16 10:09 PM) URINE AND UA Color Yellow Yellow 05/06 [facility] *NA* (05/05/16 10:09 PM) URINE AND UA Glucose Negative Negative 05/06 STOOL [facility] (05/05/16 10:09 PM) URINE AND UA Bili Negative Negative 05/06 [facility] *NA* (05/05/16 10:09 PM) URINE AND UA Ketones Negative Negative 05/06 [facility] *NA* (05/05/16 10:09 PM) URINE AND UA Protein Negative Negative 05/06 STOOL [facility] (05/05/16 10:09 PM) URINE AND UA pH 6.0 5.0 - 8.0 05/06 [facility] URINE AND UA Turbidity Clear Clear 05/06 [facility] (05/05/16 10:09 PM) URINE AND UA Spec Grav >=1.030 <=1.030 05/06 [facility] *ABN* (05/05/16 10:09 PM) BACTERIAL - MRSA by PCR Negative 05/06 SEROLOGY [facility] (05/05/16 10:06 PM) HEMATOLOGY Basophils # 0.1 K/CMM 0.0 - 0.2 05/06 [facility]EMAT[facility] Microcyte 2+ None Seen 05/06 [facility] *ABN* (05/05/16 9:38 PM) HEMATOLOGY Eosinophils 1.4 % 0.0 - 4.0 05/06 [facility]EMAT[facility] Basophils 0.7 % 0.0 - 1.0 05/06 [facility] HEMATOLOG[facility] Segs-Bands # 7.1 K/CMM 1.5 - 8.1 05/06 /2015 [facility] HEMAT[facility] Lymphocytes 24.8 % 20.0 - 05/06 MH 40.0 /2015 [facility] HEMAT[facility] Monocytes 7.9 % 2.0 - 12.0 05/06 /2015 [facility] HEMAT[facility] Monocytes # 0.9 K/CMM 0.0 - 0.8 05/06 /2015 [facility]EMAT[facility] Eosinophils 0.2 K/CMM 0.0 - 0.5 05/06 [facility] # /2015 [facility]EMAT[facility] Lymphocytes 2.7 K/CMM 1.0 - 5.5 05/06 MH # /2015 [facility] HEMAT[facility] Segs 65.2 % 45.0 - 05/06 MH 75.0 /2015 [facility]EMAT[facility] MCV 69.7 fL 80.0 - 05/06 MH 94.0 [facility] HEMAT[facility] MCH 23.3 pg 27.0 - 05/06 MH 31.0 [facility]EMAT[facility] Hgb 12.2 g/dL 14.0 - 05/06 MH 18.0 [facility] HEMAT[facility] Hct 36.5 % 42.0 - 05/06 MH 54.0 [facility] HEMAT[facility] MCHC 33.4 g/dL 32.0 - 05/06 MH 36.0 [facility]EMAT[facility] Platelet 276 K/CMM 133 - 450 05/06 /2015 [facility]EMAT[facility] MPV 7.2 fL 7.4 - 10.4 05/06 /2015 [facility]EMAT[facility] RDW 17.5 % 11.5 - 05/06 MH 14. [facility]EMAT[facility] WBC X 10x3 11.0 K/CMM 3.7 - 10.4 05/06 [facility]EMAT[facility] RBC X 10x6 5.24 M/CMM 4.70 - 05/06 MH 6.10 [facility] HEMAT[facility] INR 1.05 0.85 - 05/06 MH 1.17 [facility] HEMAT[facility] PROTIME 13.9 s 12.0 - 05/06 14. [facility]EMAT[facility] aPTT 35.3 s 22.9 - 05/06 MH 35.8 [facility] CARDIAC CK-MB INDEX 1.0 0.0 - 2.5 05/05 ENZYMES /2015 [facility] CARDIAC CK MB 0.8 ng/mL 0.5 - 3.6 05/05 ENZYMES /2015 [facility] CARDIAC Total CK 80 unit/L 12 - 191 05/05 ENZ[facility]ES [facility] CARDIAC Troponin-I null 0.00 - 05/05 EN[facility]YMES 0.40 [facility] CHEM PANEL Alk Phos 133 unit/L 39 - 136 05/05 [facility] CHEM PANEL Glucose Lvl 137 mg/dL 70 - 99 05/05 [facility] CHEM PANEL BUN 17 mg/dL 7 - 22 05/05 [facility] CHEM PANEL Creatinine 1.01 mg/dL 0.50 - 05/05 [facility] Lvl 1.40 [facility] CHEM PANEL Sodium Lvl 139 meq/L 135 - 145 05/05 [facility] CHEM PANEL ALANINE 34 unit/L 0 - 65 05/05 AMINOTRANSFE [facility] RASE CHEM PANEL Albumin Lvl 3.3 g/dL 3.5 - 5.0 05/05 [facility] CHEM PANEL Chloride Lvl 105 meq/L 95 - 109 05/05 [facility] CHEM PANEL eGFR 88 05/05 Result Comment: [...] is not recommended in the following populations: [address] Individuals with unstable creatinine concentrations, including [...] Total 0.4 mg/dL 0.2 - 1.3 05/05 [facility] CHEM PANEL Calcium Lvl 8.6 mg/dL 8.5 - 10.5 05/05 [facility] CHEM PANEL Potassium 3.7 meq/L 3.5 - 5.1 05/05 Lvl [facility] CHEM PANEL CO2 28 meq/L 24 - 32 05/05 [facility] CHEM PANEL Total 7.8 g/dL 6.4 - 8.4 05/05 [facility] CHEM PANEL ASPARTATE 16 unit/L 0 - 37 05/05 [facility] CHEM PANEL AGAP 9.7 meq/L 10.0 - 05/05 MH 20.0 [facility] CHEM PANEL B/C Ratio 17 6 - 25 05/05 [facility] CHEM PANEL Globulin 4.5 g/dL 2.7 - 4.2 05/05 [facility] CHEM PANEL A/G Ratio 0.7 0.7 - 1.6 05/05 [facility]EMAT[facility] Monocytes # 0.8 K/CMM 0.0 - 0.8 05/05 [facility]EMAT[facility] Eosinophils 0.1 K/CMM 0.0 - 0.5 05/05 # [facility]EMAT[facility] Basophils # 0.1 K/CMM 0.0 - 0.2 05/05 [facility]EMAT[facility] Microcyte 2+ None Seen 05/05 [facility] *ABN* (05/05/16 5:11 PM) HEMATOLOGY Monocytes 7.5 % 2.0 - 12.0 05/05 [facility]EMAT[facility] Eosinophils 1.1 % 0.0 - 4.0 05/05 [facility]EMAT[facility] Basophils 0.7 % 0.0 - 1.0 05/05 [facility] HEMAT[facility] Segs-Bands # 7.5 K/CMM 1.5 - 8.1 05/05 [facility]EMAT[facility] Lymphocytes 2.1 K/CMM 1.0 - 5.5 05/05 [facility]EMAT[facility] Lymphocytes 19.9 % 20.0 - 05/05 MH 40.0 [facility] HEMATOLOG[facility] Segs 70.8 % 45.0 - 05/05 MH 75.0 [facility] HEMAT[facility] Platelet 306 K/CMM 133 - 450 05/05 [facility]EMAT[facility] MCHC 33.6 g/dL 32.0 - 05/05 MH 36.0 [facility]EMAT[facility] MPV 7.3 fL 7.4 - 10.4 05/05 [facility]EMAT[facility] RDW 16.9 % 11.5 - 05/05 MH 14. [facility]EMAT[facility] MCV 69.5 fL 80.0 - 05/05 MH 94.0 [facility] HEMATOLOG[facility] MCH 23.4 pg 27.0 - 05/05 MH 31.0 [facility]EMAT[facility] Hct 37.4 % 42.0 - 05/05 MH 54.0 [facility] HEMAT[facility] Hgb 12.6 g/dL 14.0 - 05/05 MH 18.0 [facility] HEMAT[facility] WBC X 10x3 10.6 K/CMM 3.7 - 10.4 05/05 [facility] HEMAT[facility] RBC X 10x6 5.39 M/CMM 4.70 - 05/05 MH 6.10 [facility] Chest 1view Chest 1view EXAM: Chest 1view DX 05/05 - [facility] DX DX /2015 - [place] DATE: 05/05/2016 4:55 PM [employer] INDICATION: Chest pain Read by: Tito Farnsworth MD Dictated Date/time: 05/05/16 17:34 COMPARISON: 03/05/2016. Electronically Signed by: Tito Farnsworth MD 05/05/16 17:34 FINAL REPORT IMPRESSION: Stable mildly enlarged cardiac silhouette. Atherosclerotic thoracic aorta. No focal consolidation, significant pleural effusion or pneumothorax. SL: [id number] CHEM PANEL Globulin 4.2 g/dL 2.7 - 4.2 04/25 [facility] CHE[facility] PAN[facility] B/C Ratio 19 6 - 25 04/25 [facility] CHEM PANEL AGAP 9.9 meq/L 10.0 - 04/25 20.0 [facility] CHEM PANEL A/G Ratio 0.8 0.7 - 1.6 04/25 [facility] CHEM PANEL eGFR 100 04/25 Result Comment: [...] is not recommended in the following populations: [address] Individuals with unstable creatinine concentrations, including [...] Phos 128 unit/L 39 - 136 04/25 [facility] CHEM PANEL Albumin Lvl 3.4 g/dL 3.5 - 5.0 04/25 [facility] CHEM PANEL ALANINE 30 unit/L 0 - 65 04/25 AMINOTRANSFE [facility] RASE CHEM PANEL Total 7.6 g/dL 6.4 - 8.4 04/25 Protein [facility] CHEM PANEL Bili Total 0.3 mg/dL 0.2 - 1.3 04/25 [facility] CHEM PANEL ASPARTATE 14 unit/L 0 - 37 04/25 TRANSAMINASE [facility] CHEM PANEL CO2 26 meq/L 24 - 32 04/25 [facility] CHEM PANEL Calcium Lvl 8.7 mg/dL 8.5 - 10.5 04/25 [facility] CHEM PANEL Chloride Lvl 104 meq/L 95 - 109 04/25 [facility] CHEM PANEL Potassium 3.9 meq/L 3.5 - 5.1 04/25 MH Lvl /2015 [facility] CHEM PANEL Glucose Lvl 221 mg/dL 70 - 99 04/25 [facility] CHEM PANEL Sodium Lvl 136 meq/L 135 - 145 04/25 [facility] CHEM PANEL Creatinine 0.91 mg/dL 0.50 - 04/25 [facility] Lvl 1.40 [facility] CHEM PANEL BUN 17 mg/dL 7 - 22 04/25 [facility] HEMATOLOG[facility] RBC X 10x6 5.40 M/CMM 4.70 - 04/25 MH 6.10 [facility] HEMATOLOGY WBC X 10x3 10.3 K/CMM 3.7 - 10.4 04/25 [facility] HEMATOLOG[facility] Hgb 12.9 g/dL 14.0 - 04/25 MH 18.0 [facility] HEMATOLOGY MPV 7.2 fL 7.4 - 10.4 04/25 [facility] HEMATOLOG[facility] RDW 16.8 % 11.5 - 04/25 MH 14. [facility] HEMATOLOG[facility] Platelet 313 K/CMM 133 - 450 04/25 [facility] HEMATOLOGY MCH 23.8 pg 27.0 - 04/25 MH 31.0 [facility] HEMATOLOGY MCHC 34.0 g/dL 32.0 - 04/25 36.0 /2015 [facility] HEMATOLOGY Hct 37.9 % 42.0 - 04/25 MH 54.0 /2015 [facility] HEMATOLOGY MCV 70.1 fL 80.0 - 04/25 94.0 /2015 [facility] HEMATOLOGY Lymphocytes 2.3 K/CMM 1.0 - 5.5 04/25 MH # /2016 [facility] HEMATOLOGY Eosinophils 0.1 K/CMM 0.0 - 0.5 04/25 # /2015 [facility] HEMATOLOGY Monocytes # 0.6 K/CMM 0.0 - 0.8 04/25 [facility] HEMAT[facility] Basophils # 0.1 K/CMM 0.0 - 0.2 04/25 [facility] HEMAT[facility] Microcyte 2+ None Seen 04/25 [facility] *ABN* (04/25/16 6:17 PM) HEMATOLOGY Segs 69.2 % 45.0 - 04/25 MH 75.0 /2015 [facility] HEMATOLOGY Segs-Bands # 7.1 K/CMM 1.5 - 8.1 04/25 [facility] HEMATOLOGY Monocytes 6.1 % 2.0 - 12.0 04/25 [facility] HEMATOLOGY Basophils 1.1 % 0.0 - 1.0 04/25 [facility] HEMATOLOGY Eosinophils 1.1 % 0.0 - 4.0 04/25 [facility] HEMATOLOG[facility] Lymphocytes 22.5 % 20.0 - 04/25 40.0 /2016 [facility] URINE AND UA WBC 0-2 /HPF None Seen 04/25 STOOL /HPF [facility] URINE AND UA RBC 0-2 /HPF 0 - 2 04/25 STOOL [facility] URINE AND UA Bacteria Occasional None Seen 04/25 [facility] /HPF /HPF [facility] URINE AND UA Leuk Est Negative Negative 04/25 ST[facility]OL [facility] (04/25/16 6:17 PM) URINE AND UA Sq Epi Occasional Few /LPF 04/25 STOOL /LPF /2015 [facility] URINE AND UA pH 6.0 5.0 - 8.0 04/25 [facility] URINE AND UA Protein Negative Negative 04/25 ST[facility]OL [facility] (04/25/16 6:17 PM) URINE AND UA Glucose 250 mg/dL Negative 04/25 STOOL mg/dL /2015 [facility] URINE AND UA Ketones Negative Negative 04/25 ST[facility]OL [facility] *NA* (04/25/16 6:17 PM) URINE AND UA Bili Negative Negative 04/25 [facility] *NA* (04/25/16 6:17 PM) URINE AND UA Blood Negative Negative 04/25 [facility] (04/25/16 6:17 PM) URINE AND UA 0.2 EU/dL 0.1 - 1.0 04/25 [facility] Urobilinogen [facility] URINE AND UA Nitrite Negative Negative 04/25 STOOL [facility] (04/25/16 6:17 PM) URINE AND UA Color Yellow Yellow 04/25 [facility] *NA* (04/25/16 6:17 PM) URINE AND UA Turbidity Clear Clear 04/25 [facility] (04/25/16 6:17 PM) URINE AND UA Spec Grav 1.020 <=1.030 04/25 [facility] Renal Stone Renal Stone EXAM: CT ABDOMEN AND PELVIS WITHOUT CONTRAST [facility] CT [facility] DATE: 04/25/2016 6:07 PM CDT Read [...] provided. IV contrast: None. CT Radiation Dose: NEZ=6552.51 mGy-cm FINDINGS: Evaluation of the solid organs [...] infrarenal abdominal aorta without aneurysmal dilatation. SL: [id number] CARDIAC Troponin-I null 0.00 - 03/05 [facility] ENZYMES 0.40 /2015 [facility] CARDIAC CK MB 0.8 ng/mL 0.5 - 3.6 03/05 [facility] ENZYMES /2016 [facility] CARDIAC Total CK 60 unit/L - 191 03/05 [facility] ENZYMES /2016 [facility] CARDIAC CK-MB INDEX 1.3 0.0 - 2.5 03/05 [facility] ENZYMES /2016 [facility] CARDIAC Troponin-I null 0.00 - 03/05 [facility] ENZYMES 0.40 2016 [facility] CARDIAC Total CK 66 unit/L - 191 03/05 [facility] ENZYMES /2016 [facility] CARDIAC CK MB 0.6 ng/mL 0.5 - 3.6 03/05 [facility] ENZYMES /2016 [facility] CARDIAC CK-MB INDEX 0.9 0.0 - 2.5 03/05 [facility] ENZYMES /2016 [facility] CHEM PANEL eGFR 103 03/05 Result Comment: [...] is not recommended in the following populations: [address] Individuals with unstable creatinine concentrations, including [...] 12.0 meq/L 10.0 - 09 MH 20.0 [facility] CHEM PANEL Globulin 4.4 g/dL 2.7 - 4.2 03/05 [facility] CHEM PANEL B/C Ratio 14 6 - 25 03/05 [facility] CHEM PANEL A/G Ratio 0.8 0.7 - 1.6 03/05 [facility] CHEM PANEL Calcium Lvl 8.8 mg/dL 8.5 - 10.5 03/05 [facility] CHEM PANEL Bili Total 0.6 mg/dL 0.2 - 1.3 03/05 [facility] CHEM PANEL Total 7.8 g/dL 6.4 - 8.4 03/05 Protein [facility] CHEM PANEL ASPARTATE 16 unit/L 0 - 37 03/05 [facility] CHEM PANEL Alk Phos 128 unit/L 39 - 136 03/05 [facility] CHEM PANEL Glucose Lvl 97 mg/dL 70 - 99 03/05 [facility] CHEM PANEL Creatinine 0.88 mg/dL 0.50 - 03/05 [facility] Lvl 1.40 [facility] CHEM PANEL BUN 12 mg/dL 7 - 22 03/05 [facility] CHEM PANEL Sodium Lvl 138 meq/L 135 - 145 03/05 [facility] CHEM PANEL ALANINE 32 unit/L 0 - 65 03/05 AMINOTRANS [facility] R[facility] CHEM PANEL Albumin Lvl 3.4 g/dL 3.5 - 5.0 03/05 [facility] CHEM PANEL Potassium 4.0 meq/L 3.5 - 5.1 03/05 MH Lvl [facility] CHEM PANEL Chloride Lvl 105 meq/L 95 - 109 03/05 [facility] CHEM PANEL CO2 25 meq/L 24 - 32 03/05 [facility] HEMATOLOGY Platelet 294 K/CMM 133 - 450 03/05 [facility] HEMATOLOGY MPV 7.4 fL 7.4 - 10.4 03/05 [facility] HEMATOLOGY WBC X 10x3 10.0 K/CMM 3.7 - 10.4 03/05 [facility] HEMATOLOGY RDW 16.6 % 11.5 - 03/05 MH 14.5 [facility] HEMATOLOGY MCH 24.1 pg 27.0 - 03/05 MH 31.0 [facility] HEMATOLOGY MCHC 33.4 g/dL 32.0 - 03/05 MH 36.0 [facility] HEMATOLOGY MCV 72.2 fL 80.0 - 03/05 MH 94.0 [facility] HEMATOLOGY Hct 38.1 % 42.0 - 03/05 MH 54.0 [facility] HEMATOLOGY RBC X 10x6 5.28 M/CMM 4.70 - 03/05 MH 6.10 [facility] HEMATOLOGY Hgb 12.7 g/dL 14.0 - 03/05 MH 18.0 [facility] HEMATOLOGY Microcyte 1+ None Seen 03/05 [facility] *ABN* (03/05/16 7:30 AM) HEMATOLOGY Basophils # 0.1 K/CMM 0.0 - 0.2 03/05 [facility] HEMATOLOGY Monocytes # 0.7 K/CMM 0.0 - 0.8 03/05 [facility] HEMATOLOGY Eosinophils 0.1 K/CMM 0.0 - 0.5 03/05 MH # /2015 [facility] HEMATOLOGY Segs-Bands # 7.5 K/CMM 1.5 - 8.1 03/05 [facility] HEMATOLOGY Lymphocytes 1.6 K/CMM 1.0 - 5.5 03/05 # /2015 [facility] HEMATOLOGY Eosinophils 1.2 % 0.0 - 4.0 03/05 [facility] HEMATOLOGY Basophils 0.6 % 0.0 - 1.0 03/05 [facility] HEMATOLOGY Segs 75.1 % 45.0 - 03/05 MH 75.0 [facility] HEMATOLOGY Monocytes 7.4 % 2.0 - 12.0 03/05 [facility] HEMATOLOGY Lymphocytes 15.7 % 20.0 - 03/05 40.0 [facility] Chest 1view Chest 1view Patient Name: ANNABEL MCCONNELL [facility]05 [facility] - [place] : 1970; Age: 45 years y/o Male MR: [id number] Read by: Jason Dozier MD Dictated Date/time: [...] unremarkable. IMPRESSION: 1. No active disease. SL: [id number] URINE AND UA RBC 0-2 /HPF 0 - 2 03/02 [facility] URINE AND UA Sq Epi None Seen Few 03/02 [facility] (03/02/16 8:22 AM) URINE AND UA WBC None Seen None Seen 03/02 [facility] (03/02/16 8:22 AM) URINE AND UA pH 6.0 5.0 - 8.0 03/02 [facility] URINE AND UA Protein Negative Negative 03/02 STOOL mg/dL mg/dL [facility] URINE AND UA Glucose Negative Negative 03/02 STOOL mg/dL mg/dL [facility] URINE AND UA Ketones Negative Negative 03/02 STOOL mg/dL mg/dL [facility] URINE AND UA Bili Negative Negative 03/02 [facility] *NA* (03/02/16 8:22 AM) URINE AND UA Color Yellow Yellow 03/02 [facility] *NA* (03/02/16 8:22 AM) URINE AND UA Turbidity Clear Clear 03/02 [facility] (03/02/16 8:22 AM) URINE AND UA Spec Grav 1.015 <=1.030 03/02 [facility] URINE AND UA Blood Negative Negative 03/02 [facility] (03/02/16 8:22 AM) URINE AND UA 0.2 EU/dL 0.1 - 1.0 03/02 STOOL Urobilinogen [facility] URINE AND UA Nitrite Negative Negative 03/02 [facility] (03/02/16 8:22 AM) URINE AND UA Leuk Est Negative Negative 03/02 STOOL [facility] (03/02/16 8:22 AM) CHEM PANEL A/G Ratio 0.7 0.7 - 1.6 03/02 [facility] CHEM PANEL Globulin 4.6 g/dL 2.7 - 4.2 03/02 [facility] CHEM PANEL B/C Ratio 16 6 - 25 03/02 [facility] CHEM PANEL AGAP 10.4 meq/L 10.0 - 03/02 MH 20.0 [facility] CHEM PANEL Total 8.0 g/dL 6.4 - 8.4 03/02 Protein [facility] CHEM PANEL Bili Total 0.3 mg/dL 0.2 - 1.3 03/02 [facility] CHEM PANEL Calcium Lvl 8.7 mg/dL 8.5 - 10.5 03/02 [facility] CHEM PANEL CO2 26 meq/L 24 - 32 03/02 [facility] CHEM PANEL Chloride Lvl 106 meq/L 95 - 109 03/02 [facility] CHEM PANEL Sodium Lvl 138 meq/L 135 - 145 03/02 [facility] CHEM PANEL Potassium 4.4 meq/L 3.5 - 5.1 03/02 Lv [facility] CHEM PANEL eGFR 83 03/02 Result Comment: [...] is not recommended in the following populations: [facility] 3[facility]2 Individuals with unstable creatinine concentrations, including [...] ASPARTATE 13 unit/L 0 - 37 03/02 [facility] CHEM PANEL Creatinine 1.07 mg/dL 0.50 - 03/02 MH Lvl 1.40 /2015 [facility] CHEM PANEL BUN 17 mg/dL 7 - 22 03/02 [facility] CHEM PANEL Glucose Lvl 106 mg/dL 70 - 99 03/02 [facility] CHEM PANEL Alk Phos 127 unit/L 39 - 136 03/02 [facility] CHEM PANEL Albumin Lvl 3.4 g/dL 3.5 - 5.0 03/02 [facility] CHEM PANEL ALANINE 33 unit/L 0 - 65 03/02 AMINOTRANSFE /2015 [facility] RASE CHEM PANEL Lipase Lvl 164 unit/L 73 - 393 03/02 [facility] HEMATOLOGY Basophils # 0.1 K/CMM 0.0 - 0.2 03/02 [facility] HEMATOLOGY Microcyte 1+ None Seen 03/02 [facility] *ABN* (03/02/16 5:41 AM) HEMATOLOGY Monocytes 6.7 % 2.0 - 12.0 03/02 [facility] HEMATOLOGY Lymphocytes 21.9 % 20.0 - 03/02 MH 40.0 [facility] HEMATOLOGY Eosinophils 1.5 % 0.0 - 4.0 03/02 [facility] HEMATOLOGY Segs 69.1 % 45.0 - 03/02 75.0 [facility] HEMATOLOGY Monocytes # 0.8 K/CMM 0.0 - 0.8 03/02 [facility] HEMATOLOGY Lymphocytes 2.6 K/CMM 1.0 - 5.5 03/02 MH # [facility] HEMATOLOGY Eosinophils 0.2 K/CMM 0.0 - 0.5 03/02 MH [facility] HEMATOLOGY Segs-Bands # 8.1 K/CMM 1.5 - 8.1 03/02 [facility] HEMATOLOGY Basophils 0.8 % 0.0 - 1.0 03/02 [facility] HEMATOLOGY WBC X 10x3 11.8 K/CMM 3.7 - 10.4 03/02 [facility] HEMATOLOGY Hct 37.4 % 42.0 - 03/02 MH 54.0 [facility] HEMATOLOGY RBC X 10x6 5.18 M/CMM 4.70 - 03/02 MH 6.10 [facility] HEMATOLOGY Hgb 12.5 g/dL 14.0 - 03/02 MH 18.0 /2015 [facility] HEMATOLOGY MCH 24.1 pg 27.0 - 03/02 MH 31.0 /2015 [facility] HEMATOLOGY RDW 16.7 % 11.5 - 03/02 MH 14.5 /2015 [facility] HEMATOLOGY MCHC 33.4 g/dL 32.0 - 03/02 MH 36.0 /2015 [facility] HEMATOLOGY MCV 72.1 fL 80.0 - 03/02 94.0 /2015 [facility] HEMATOLOGY MPV 7.7 fL 7.4 - 10.4 03/02 [facility] HEMATOLOGY Platelet 303 K/CMM 133 - 450 03/02 [facility] Chest/Abdom Chest/Abdome CT THORAX/ABDOMEN/PELVIS WITH IV CONTRAST WITH SAGITTAL AND CORONAL REFORMATTED IMAGES 03/02 - [facility] en/Pelvis w n/Pelvis w - [place] IV contrast IV contrast CT CT HISTORY: [...] colonic diverticulosis, small abdominal aortic aneurysm. SL: [id number] Abdomen RUQ Abdomen RUQ ULTRASOUND ABDOMEN RIGHT UPPER QUADRANT 03/02 - [facility] US US /2015 - [place] HISTORY: Abdominal pain, acute; right flank pain [...] steatosis. 2. Otherwise normal abdominal ultrasound. SL: [id number] Renal Stone Renal Stone Patient Name: ANNABEL MCCONNELL 03/02 [facility] [address] CT /2015 [facility] : 1970; Age: 45 years y/o Male MR: [id number] Read by: John Paul Carrero MD Dictated Date/time: 03/02/16 05:55 Electronically Signed by: John Paul Carrero MD 03/02/16 05:59 FINAL REPORT Study: Renal Stone CT 03/02/2016 5:25 AM CDT Ordering Physician: Clinical Indication: Abdominal pain, acute; Comparison: None TECHNIQUE: Noncontrasted helical imaging was performed from the kidneys through the symphysis as a renal stone protocol. Multiplanar reformations are available. CT Radiation Dose: RDH=[id number] mGy-cm FINDINGS: This examination is limited for [...] - 5.1 02/18 MH S Lvl /2015 [facility] ELECTROLYTE Chloride Lvl 104 meq/L 95 - 109 02/18 S [facility] ELECTROLYTE Sodium Lvl 136 meq/L 135 - 145 02/18 MH S /2015 [facility] ELECTROLYTE Glucose Lvl 147 mg/dL 70 - 99 02/18 MH S [facility] ELECTROLYTE Creatinine 0.88 mg/dL 0.50 - 02/18 MH S Lvl 1.40 [facility] ELECTROLYTE BUN 10 mg/dL 7 - 22 02/18 MH S /2015 [facility] ELECTROLYTE eGFR 103 02/18 Result Comment: The [...] is not recommended in the following populations: [place] 3[facility]2 Individuals with unstable creatinine concentrations, including [...] 8.5 - 10.5 02/18 MH S /2015 [place] ELECTROLYTE CO2 24 meq/L 24 - 32 02/18 MH S /2015 [facility] ELECTROLYTE AGAP 12.4 meq/L 10.0 - 02/18 MH S 20.0 [facility] HEMATOLOGY RDW 16.3 % 11.5 - 02/18 MH 14. [facility] HEMATOLOGY Platelet 273 K/CMM 133 - 450 02/18 [facility] HEMATOLOGY MPV 7.5 fL 7.4 - 10.4 02/18 [facility] HEMATOLOGY Hgb 12.8 g/dL 14.0 - 02/18 MH 18.0 [facility] HEMATOLOGY RBC X 10x6 5.31 M/CMM 4.70 - 02/18 MH 6.10 [facility] HEMATOLOGY WBC X 10x3 11.1 K/CMM 3.7 - 10.4 02/18 [facility] HEMATOLOGY MCV 72.6 fL 80.0 - 02/18 MH 94.0 [facility] HEMATOLOGY Hct 38.6 % 42.0 - 02/18 MH 54.0 [facility] HEMATOLOGY MCH 24.1 pg 27.0 - 02/18 MH 31.0 [facility] HEMATOLOGY MCHC 33.1 g/dL 32.0 - 02/18 MH 36.0 [facility] CARDIAC Troponin-I null 0.00 - 02/17 MH ENZYMES 0.40 [facility] HEMATOLOGY Monocytes 7.9 % 2.0 - 12.0 02/17 [facility] HEMATOLOGY Lymphocytes 20.8 % 20.0 - 02/17 MH 40.0 [facility] HEMATOLOGY Segs 69.1 % 45.0 - 02/17 MH 75.0 [facility] HEMATOLOGY Lymphocytes 2.2 K/CMM 1.0 - 5.5 02/17 MH /2015 [facility] HEMATOLOGY Monocytes # 0.8 K/CMM 0.0 - 0.8 02/17 [facility] HEMATOLOGY Eosinophils 1.6 % 0.0 - 4.0 02/17 [facility] HEMATOLOG[facility] Segs-Bands # 7.5 K/CMM 1.5 - 8.1 02/17 [facility] HEMAT[facility] Basophils 0.6 % 0.0 - 1.0 02/17 [facility] HEMAT[facility] Microcyte 1+ None Seen 02/17 [facility] *ABN* (02/18/16 5:20 AM) HEMATOLOGY Basophils # 0.1 K/CMM 0.0 - 0.2 02/17 [facility] HEMAT[facility] Eosinophils 0.2 K/CMM 0.0 - 0.5 02/17 MH # /2015 [facility]EMAT[facility] RBC X 10x6 4.91 M/CMM 4.70 - 02/17 MH 6.10 [facility]EMAT[facility] WBC X 10x3 10.8 K/CMM 3.7 - 10.4 02/17 [facility] HEMAT[facility] MCH 24.1 pg 27.0 - 02/17 MH 31.0 [facility]EMAT[facility] MCV 73.1 fL 80.0 - 02/17 MH 94.0 [facility]EMAT[facility] Hct 35.9 % 42.0 - 02/17 MH 54.0 [facility]EMAT[facility] Hgb 11.8 g/dL 14.0 - 02/17 MH 18.0 [facility]EMAT[facility] MPV 7.4 fL 7.4 - 10.4 02/17 [facility] HEMAT[facility] RDW 16.3 % 11.5 - 02/17 14.5 [facility] HEMAT[facility] MCHC 33.0 g/dL 32.0 - 02/17 MH 36.0 [facility] HEMATOLOG[facility] Platelet 270 K/CMM 133 - 450 02/17 [facility] CARDIAC Troponin-I null 0.00 - 02/16 ENZYMES 0. [facility] CHEM PANEL Procalcitoni null 0.00 - 02/16 n Lvl 0.10 [facility] CARDIAC Troponin-I null 0.00 - 02/16 ENZYMES 0.40 [facility] URINE AND UA Bacteria None Seen None Seen 02/16 STOOL /2015 [facility] (02/17/16 6:27 AM) URINE AND UA RBC None Seen 0 - 2 02/16 STOOL /2015 [facility] (02/17/16 6:27 AM) URINE AND UA Mucus Few /LPF None Seen 02/16 STOOL /LPF /2015 [facility] URINE AND UA Sq Epi Rare /LPF Few /LPF 02/16 STOOL [facility] URINE AND UA WBC 0-2 /HPF None Seen 02/16 STOOL /HPF /2015 [facility] URINE AND UA Leuk Est Negative Negative 02/16 STOOL /2015 [facility] (02/17/16 6:27 AM) URINE AND UA 0.2 EU/dL 0.1 - 1.0 02/16 STOOL Urobilinogen [facility] URINE AND UA Nitrite Negative Negative 02/16 STOOL [facility] (02/17/16 6:27 AM) URINE AND UA Spec Grav 1.025 <=1.030 02/16 STOOL [facility] URINE AND UA Turbidity Clear Clear 02/16 STOOL [facility] (02/17/16 6:27 AM) URINE AND UA Color Yellow Yellow 02/16 STOOL [facility] *NA* (02/17/16 6:27 AM) URINE AND UA Bili Negative Negative 02/16 STOOL [facility] *NA* (02/17/16 6:27 AM) URINE AND UA Blood Negative Negative 02/16 STOOL [facility] (02/17/16 6:27 AM) URINE AND UA Ketones Negative Negative 02/16 STOOL mg/dL mg/dL [facility] URINE AND UA Glucose Negative Negative 02/16 STOOL mg/dL mg/dL [facility] URINE AND UA pH 6.0 5.0 - 8.0 02/16 STOOL [facility] URINE AND UA Protein Negative Negative 02/16 STOOL mg/dL mg/dL [facility] CARDIAC CK-MB INDEX 1.6 0.0 - 2.5 02/16 ENZYMES [facility] CARDIAC CK MB 0.9 ng/mL 0.5 - 3.6 02/16 ENZYMES [facility] CARDIAC Total CK 58 unit/L 12 - 191 02/16 ENZYMES [facility] CHEM PANEL eGFR 93 02/16 Result Comment: [...] is not recommended in the following populations: [facility] 3m2 Individuals with unstable creatinine concentrations, including [...] 33 unit/L 0 - 65 02/16 AMINOTRANS [facility] RASE CHEM PANEL CO2 23 meq/L 24 - 32 02/16 [facility] CHEM PANEL Calcium Lvl 8.8 mg/dL 8.5 - 10.5 02/16 [facility] CHEM PANEL Potassium 4.0 meq/L 3.5 - 5.1 02/16 MH Lvl [facility] CHEM PANEL Chloride Lvl 105 meq/L 95 - 109 02/16 [facility] CHEM PANEL Creatinine 0.97 mg/dL 0.50 - 02/16 MH Lvl 1.40 [facility] CHEM PANEL Glucose Lvl 103 mg/dL 70 - 99 02/16 [facility] CHEM PANEL BUN 11 mg/dL 7 - 22 02/16 [facility] CHEM PANEL Albumin Lvl 3.4 g/dL 3.5 - 5.0 02/16 [facility] CHEM PANEL Alk Phos 128 unit/L 39 - 136 02/16 [facility] CHEM PANEL Bili Total 0.5 mg/dL 0.2 - 1.3 02/16 [facility] CHEM PANEL Sodium Lvl 139 meq/L 135 - 145 02/16 [facility] CHEM PANEL AGAP 15.0 meq/L 10.0 - 02/16 MH 20.0 [facility] CHEM PANEL B/C Ratio 11 6 - 25 02/16 [facility] CHEM PANEL Total 8.0 g/dL 6.4 - 8.4 02/16 [facility] CHEM PANEL ASPARTATE 16 unit/L 0 - 37 02/16 [facility] CHEM PANEL Globulin 4.6 g/dL 2.7 - 4.2 02/16 [facility] CHEM PANEL A/G Ratio 0.7 0.7 - 1.6 02/16 [facility] HEMATOLOGY Microcyte 1+ None Seen 02/16 [facility] *ABN* (02/17/16 5:50 AM) HEMATOLOGY Basophils # 0.1 K/CMM 0.0 - 0.2 02/16 [facility] HEMATOLOGY Basophils 0.5 % 0.0 - 1.0 02/16 [facility] HEMATOLOGY Lymphocytes 2.4 K/CMM 1.0 - 5.5 02/16 MH # /2015 [facility] HEMATOLOGY Monocytes # 0.8 K/CMM 0.0 - 0.8 02/16 [facility] HEMATOLOGY Eosinophils 0.1 K/CMM 0.0 - 0.5 02/16 MH # /2015 [facility] HEMATOLOG[facility] Segs-Bands # 8.7 K/CMM 1.5 - 8.1 02/16 [facility] HEMATOLOGY Eosinophils 1.2 % 0.0 - 4.0 02/16 [facility] HEMATOLOG[facility] Segs 72.1 % 45.0 - 02/16 MH 75.0 [facility] HEMATOLOGY Lymphocytes 19.8 % 20.0 - 02/16 MH 40.0 [facility] HEMATOLOGY Monocytes 6.4 % 2.0 - 12.0 02/16 [facility] HEMATOLOGY Platelet 327 K/CMM 133 - 450 02/16 [facility] HEMATOLOG[facility] MCH 24.1 pg 27.0 - 02/16 31.0 [facility] HEMAT[facility] MCHC 33.3 g/dL 32.0 - 02/16 36.0 [facility] HEMAT[facility] MPV 7.6 fL 7.4 - 10.4 02/16 [facility] HEMATOLOG[facility] RDW 16.3 % 11.5 - 02/16 14.5 [facility]EMAT[facility] Hgb 13.1 g/dL 14.0 - 02/16 18.0 [facility] HEMAT[facility] Hct 39.5 % 42.0 - 02/16 54.0 [facility] HEMAT[facility] WBC X 10x3 12.0 K/CMM 3.7 - 10.4 02/16 [facility] RBC X 10x6 5.45 M/CMM 4.70 - 02/16 MH 6.10 [facility]EMAT[facility] MCV 72.6 fL 80.0 - 02/16 94.0 [facility] Renal Stone Renal Stone Patient Name: ANNABEL MCCONNELL 02/16 - [facility] [place] : 1970; Age: 45 years Male MR: [id number] Read by: Sundar Jeffrey MD Dictated Date/time: 02/17/16 05:53 Electronically Signed by: Sundar Jeffrey MD 02/17/16 06:01 FINAL REPORT Study: Renal Stone CT 02/17/2016 5:26 AM CDT Clinical Indication: Flank Pain. OR. STATED RT. FLANK PAIN AND UPPER CHEST [...] small left renal cyst. 7. Cardiomegaly. SL: [id number] Chest 1view Chest 1view Patient Name: ANNABEL MCCONNELL 02/16 [facility] DX DX [place] : 1970; Age: 45 years y/o Male MR: [id number] Read by: Jaun Guillermo MD Dictated Date/time: [...] For Provider Date Date Visit [facility] [id number] Osmar 02/16 02/19 [place] Roberts /2015 [facility] [id number] Fei 03/02 03/02 [place] Partida /2015 [facility] [id number] Rachel Platt 03/05 03/05 [place] /2015 [facility] [id number] Agustin 04/25 04/26 [facility] Lopez /2015 [facility] [id number] Geronimo 05/05 05/07 [facility] Dupont /2015 [facility] [id number] Karey 05/17 05/18 [facility] Zuleta /2015 [facility] Procedures Procedure Code Date Perfomer Comments Source Catheterization of [id number] [facility] right heart Lithotripsy [id number] [facility] Placement of stent in [id number] R RCA 100% [facility] cardiac blockage conduit<sup>1</sup>
[2018-12-07 15:14] LABS: Absolute Lymphocytes (CBC) 2.4 K/uL (0.7-4.9); Basophils % 0.6 % (0-1.3); Eosinophils % 0.9 % (0-4.4); Hematocrit 41.3 % (39.6-49.0); Lymphocytes % 18.6 % (15.3-44.8); MPV 7.9 fL (7.6-11.3); Monocytes % 8.5 % (3.3-12.3); RBC Red Blood Cell Count 5.67 M/uL (4.33-5.43)
--- OUTSIDE RECORDS SUMMARY | 2018-12-07 15:15 | XMS REPORT ---
:1970 Author Organization [facility] Address [address] [place] [address] Care Team Providers Name Role Phone Unavailable [...] reported result: 1.05 Edited by: INFCE on 07/06/18:463139 1510: SILICA CLOTTING previously reported as: 1.05 ARTERIAL THROMBOPHILIA [id number] 12:28:00 Test Item Value Reference Range Comments PROTHROMBIN 3 NO MUTATION () PROTHROMBIN (FACTOR II) 85702R>A UNTRANSLATED (test DETECTED MUTATION INTERPRETATION:This code=AJ0ZRZM) individual is negative (normal) for the I96793Bxgwkhucw in the Prothrombin/Factor II gene. Increased riskof thrombophilia can be caused by a variety of genetic andnon-genetic factors not screened for this assay. Laboratory testing supervised and results monitored byTarah Segura, Ph.D., [facility], [facility], [facility]. MUTATION ANALYSIS:The F22328C mutation [AM884132.1:g.53085E>A (c.*97G>A)] inthe Prothrombin/Factor II gene is the second most commoninherited risk factor for thrombosis occuring inapproximately 2% of Caucasians. Presence of the mutation isassociated with an elevation of prothrombin levels to about30% above normal in heterozygotes and 70% above normal inhomozygotes. The Q72647U mutation is detected bypolymerase chain reaction (PCR) and flourescent probehybridization to the targeted region, followed by meltingcurve analysis with a real time PCR system. Although rare,false positive or false negative results may occur. Allresults should be interpreted in the context of clinicalfindings, relevant history, and other laboratory data. This test was developed and its analytical performancecharacteristics have been determined by [facility]. It has not beencleared or approved by the FDA. This assay has beenvalidated pursuant to the CLIA regulations and is used forclinical purposes. Health care providers, please contact your local [employer] genetic counselor or call [phone]) for assistance with interpretation of theseresults. Performed by: [facility]/[place] [address] ACTIVATED PROT C 3.09 RATIO 2.31-5.00 Ratios [...] supervised and results monitored byBjorn Cardoza, Ph.D., [facility], [facility]. MUTATION ANALYSIS:The Factor v Leiden (R560Q) mutation [NM 909776.2: c.1601G>A(p.R534Q)] in the Factor V gene is [...] its analytical performancecharacteristics have been determined by [facility]. It has not beencleared or approved by the FDA. This assay has beenvalidated pursuant to the CLIA regulations and is used forclinical purposes. Health care providers, please contact your local [employer] genetic counselor or call [phone]) for assistance with interpretation of theseresults. Performed by: [facility] [place] [address] PROTEIN S FREE (test 56 % 68-126 [...] yet been included into the APS criteria. HJEP-9-IDGEQ I IGM 0.8 SMU 0.0-20.0 (test code=GPIIGM) DGVF-2-VGPHV I IGG 0.0 SGU 0.0-20.0 (test code=GPIIGG) QJSM-8-DMOWD I IGA 0.5 AHMET 0.0-20.0 The Antiphospholipid [...] SENSITIVITY CRP 2.347 mg/dl 0.000-0.747 (test code=CRPHS) [id number] 12:28:00 Test Item Value Reference Range Comments FIBRINOGEN (test code=FIB) 640 MG/DL 160-450 Excess administration of anticoagulants and/or FibrinDegradation Products may affect Fibrinogen value. FACTOR [id number] 12:28:00 Test Item Value Reference Range Comments [...] Antithrombin levels are not clinicallysignificant. PROTEIN C [id number] 12:28:00 Test Item Value Reference Range Comments [...] increased levels of Protein C. PROTEIN C [id number] 12:28:00 Test Item Value Reference Range Comments PROTEIN C ANTIGENIC (test 71 % 70-140 Decreased levels of Protein C code=PROTCAG) Antigen may be found incongenital deficiency, treatment with oral anticoagulants,liver disease, D.I.C. and post surgery. Performed by: [facility] [place] [address] PROTEIN S [id number] 12:28:00 Test Item Value Reference Range Comments PROTEIN S TOTAL (test 68 % 70-140 Performed by: [facility] code=PROTSTOT) [facility] [place] [address] PROTEIN S FUNC (test 70 % 74-148 Protein S deficiency may be acquired code=PROTSFN) due to recentthrombosis, oral anticoagulant therapy, , oralcontraceptives or hormone replacement therapy, liverdysfunction, recent surgery, DIC, and vitamin K deficiency.Hereditary deficiency of Protein S show decreased levels butare rare. Elevated Protein S levels are not clinicallysignificant. Only decreased levels are associated with anincreased thrombotic risk. MTHF REDUCTASE (PCR) [id number] 12:28:00 Test Item Value Reference Range Comments MTHF REDUCTASE (PCR) 677 (test code=MTHFR TEST NOT PERFORMED 677) LUPUS ANTICOAGULANT [id number] 11:48:00 Test Item Value Reference Range Comments [...] and enoxaparin.Previously reported result: 1.05 Edited by: SIMTA on 07/06/18:673837 1510: SILICA CLOTTING previously reported as: 1.05 ARTERIAL THROMBOPHILIA [id number] 11:48:00 Test Item Value Reference Range Comments PROTHROMBIN 3 NO MUTATION () PROTHROMBIN (FACTOR II) 37194H>A UNTRANSLATED (test DETECTED MUTATION INTERPRETATION:This code=CU5NWGS) individual is negative (normal) for the A57313Uxrbuikwz in the Prothrombin/Factor II gene. Increased riskof thrombophilia can be caused by a variety of genetic andnon-genetic factors not screened for this assay. Laboratory testing supervised and results monitored byTarah Segura, Ph.D., DAB, [facility], [facility]. MUTATION ANALYSIS:The Y39865Y mutation [KH698824.1:g.97127E>A (c.*97G>A)] inthe Prothrombin/Factor II gene is the second most commoninherited risk factor for thrombosis occuring inapproximately 2% of Caucasians. Presence of the mutation isassociated with an elevation of prothrombin levels to about30% above normal in heterozygotes and 70% above normal inhomozygotes. The G39828V mutation is detected bypolymerase chain reaction (PCR) and flourescent probehybridization to the targeted region, followed by meltingcurve analysis with a real time PCR system. Although rare,false positive or false negative results may occur. Allresults should be interpreted in the context of clinicalfindings, relevant history, and other laboratory data. This test was developed and its analytical performancecharacteristics have been determined by [facility]. It has not beencleared or approved by the FDA. This assay has beenvalidated pursuant to the CLIA regulations and is used forclinical purposes. Health care providers, please contact your local [employer] genetic counselor or call [phone]) for assistance with interpretation of theseresults. Performed by: [facility] [place] [address] ACTIVATED PROT C 3.09 RATIO 2.31-5.00 Ratios [...] supervised and results monitored byBjorn Cardoza, Ph.D., [facility], [facility]. MUTATION ANALYSIS:The Factor v Leiden (R560Q) mutation [NM 894641.2: c.1601G>A(p.R534Q)] in the Factor V gene is [...] its analytical performancecharacteristics have been determined by [facility]. It has not beencleared or approved by the FDA. This assay has beenvalidated pursuant to the CLIA regulations and is used forclinical purposes. Health care providers, please contact your local [employer] genetic counselor or call [phone]) for assistance with interpretation of theseresults. Performed by: [facility]/[place] [address] PROTEIN S FREE (test 56 % 68-126 [...] yet been included into the APS criteria. ZHQO-1-ATZIK I IGM 0.8 SMU 0.0-20.0 (test code=GPIIGM) ROXV-8-PQFUC I IGG 0.0 SGU 0.0-20.0 (test code=GPIIGG) QUCW-8-CFPKJ I IGA 0.5 AHMET 0.0-20.0 The Antiphospholipid [...] SENSITIVITY CRP 2.347 mg/dl 0.000-0.747 (test code=CRPHS) [id number] 11:48:00 Test Item Value Reference Range Comments FIBRINOGEN (test code=FIB) 640 MG/DL 160-450 Excess administration of anticoagulants and/or FibrinDegradation Products may affect Fibrinogen value. FACTOR [id number] 11:48:00 Test Item Value Reference Range Comments [...] Antithrombin levels are not clinicallysignificant. PROTEIN C [id number] 11:48:00 Test Item Value Reference Range Comments [...] increased levels of Protein C. PROTEIN C [id number] 11:48:00 Test Item Value Reference Range Comments PROTEIN C ANTIGENIC (test 71 % 70-140 Decreased levels of Protein C code=PROTCAG) Antigen may be found incongenital deficiency, treatment with oral anticoagulants,liver disease, D.I.C. and post surgery. Performed by: [facility] [address] PROTEIN S [id number] 11:48:00 Test Item Value Reference Range Comments PROTEIN S TOTAL (test 68 % 70-140 Performed by: [facility] code=PROTSTOT) Diagnostics/[place] [address] PROTEIN S FUNC (test 70 % 74-148 Protein S deficiency may be acquired code=PROTSFN) due to recentthrombosis, oral anticoagulant therapy, , oralcontraceptives or hormone replacement therapy, liverdysfunction, recent surgery, DIC, and vitamin K deficiency.Hereditary deficiency of Protein S show decreased levels butare rare. Elevated Protein S levels are not clinicallysignificant. Only decreased levels are associated with anincreased thrombotic risk. MTHF REDUCTASE (PCR) [id number] 11:48:00 Test Item Value Reference Range Comments MTHF REDUCTASE (PCR) 677 (test code=MTHFR 677) LUPUS ANTICOAGULANT [id number] 11:04:00 Test Item Value Reference Range Comments [...] reported result: 1.05 Edited by: SMITA on 07/06/18:066920 1510: SILICA CLOTTING previously reported as: 1.05 ARTERIAL THROMBOPHILIA [id number] 11:04:00 Test Item Value Reference Range Comments PROTHROMBIN 3 NO MUTATION () PROTHROMBIN (FACTOR II) 76092U>A UNTRANSLATED (test DETECTED MUTATION INTERPRETATION:This code=QR2GRBS) individual is negative (normal) for the R45910Aivmjlkug in the Prothrombin/Factor II gene. Increased riskof thrombophilia can be caused by a variety of genetic andnon-genetic factors not screened for this assay. Laboratory testing supervised and results monitored byTarah Segura, Ph.D., [facility], [facility], [facility]. MUTATION ANALYSIS:The R65377Z mutation [CT371030.1:g.41388E>A (c.*97G>A)] inthe Prothrombin/Factor II gene is the second most commoninherited risk factor for thrombosis occuring inapproximately 2% of Caucasians. Presence of the mutation isassociated with an elevation of prothrombin levels to about30% above normal in heterozygotes and 70% above normal inhomozygotes. The B40425C mutation is detected bypolymerase chain reaction (PCR) and flourescent probehybridization to the targeted region, followed by meltingcurve analysis with a real time PCR system. Although rare,false positive or false negative results may occur. Allresults should be interpreted in the context of clinicalfindings, relevant history, and other laboratory data. This test was developed and its analytical performancecharacteristics have been determined by [facility]. It has not beencleared or approved by the FDA. This assay has beenvalidated pursuant to the CLIA regulations and is used forclinical purposes. Health care providers, please contact your local [employer] genetic counselor or call [phone]) for assistance with interpretation of theseresults. Performed by: [facility] [address] ACTIVATED PROT C 3.09 RATIO 2.31-5.00 Ratios [...] supervised and results monitored byBjorn Cardoza, Ph.D., [facility], [facility]. MUTATION ANALYSIS:The Factor v Leiden (R560Q) mutation [NM 767651.2: c.1601G>A(p.R534Q)] in the Factor V gene is [...] its analytical performancecharacteristics have been determined by [facility]. It has not beencleared or approved by the FDA. This assay has beenvalidated pursuant to the CLIA regulations and is used forclinical purposes. Health care providers, please contact your local [employer] genetic counselor or call [phone]) for assistance with interpretation of theseresults. Performed by: [facility]/[place] [address] PROTEIN S FREE (test 56 % 68-126 [...] yet been included into the APS criteria. YPHX-0-OXWPV I IGM SMU 0.0-20.0 (test code=GPIIGM) HKKM-8-EQRCH I IGG SGU 0.0-20.0 (test code=GPIIGG) ERDN-2-PYHIQ I IGA 0.5 AHMET 0.0-20.0 The Antiphospholipid [...] HIGH SENSITIVITY CRP mg/dl 0.000-0.747 (test code=CRPHS) [id number] 11:04:00 Test Item Value Reference Range Comments FIBRINOGEN (test code=FIB) 640 MG/DL 160-450 Excess administration of anticoagulants and/or FibrinDegradation Products may affect Fibrinogen value. FACTOR [id number] 11:04:00 Test Item Value Reference Range Comments [...] Antithrombin levels are not clinicallysignificant. PROTEIN C [id number] 11:04:00 Test Item Value Reference Range Comments [...] increased levels of Protein C. PROTEIN C [id number] 11:04:00 Test Item Value Reference Range Comments PROTEIN C ANTIGENIC (test 71 % 70-140 Decreased levels of Protein C code=PROTCAG) Antigen may be found incongenital deficiency, treatment with oral anticoagulants,liver disease, D.I.C. and post surgery. Performed by: [facility] [address] PROTEIN S [id number] 11:04:00 Test Item Value Reference Range Comments PROTEIN S TOTAL (test 68 % 70-140 Performed by: [facility] code=PROTSTOT) Diagn[place] [address] PROTEIN S FUNC (test 70 % 74-148 Protein S deficiency may be acquired code=PROTSFN) due to recentthrombosis, oral anticoagulant therapy, , oralcontraceptives or hormone replacement therapy, liverdysfunction, recent surgery, DIC, and vitamin K deficiency.Hereditary deficiency of Protein S show decreased levels butare rare. Elevated Protein S levels are not clinicallysignificant. Only decreased levels are associated with anincreased thrombotic risk. MTHF REDUCTASE (PCR) [id number] 11:04:00 Test Item Value Reference Range Comments MTHF REDUCTASE (PCR) 677 (test code=MTHFR 677) LUPUS ANTICOAGULANT [id number] 11:03:00 Test Item Value Reference Range Comments [...] reported result: 1.05 Edited by: SMITA on 07/06/18:061597/ 1510: SILICA CLOTTING previously reported as: 1.05 ARTERIAL THROMBOPHILIA [id number] 11:03:00 Test Item Value Reference Range Comments PROTHROMBIN 3 NO MUTATION () PROTHROMBIN (FACTOR II) 35634V>A UNTRANSLATED (test DETECTED MUTATION INTERPRETATION:This code=IC8NCAV) individual is negative (normal) for the G10296Qqwczpjjb in the Prothrombin/Factor II gene. Increased riskof thrombophilia can be caused by a variety of genetic andnon-genetic factors not screened for this assay. Laboratory testing supervised and results monitored byTarah Segura, Ph.D., DAB, [facility], MB. MUTATION ANALYSIS:The N54269M mutation [NI552115.1:g.44527R>A (c.*97G>A)] inthe Prothrombin/Factor II gene is the second most commoninherited risk factor for thrombosis occuring inapproximately 2% of Caucasians. Presence of the mutation isassociated with an elevation of prothrombin levels to about30% above normal in heterozygotes and 70% above normal inhomozygotes. The J31853T mutation is detected bypolymerase chain reaction (PCR) and flourescent probehybridization to the targeted region, followed by meltingcurve analysis with a real time PCR system. Although rare,false positive or false negative results may occur. Allresults should be interpreted in the context of clinicalfindings, relevant history, and other laboratory data. This test was developed and its analytical performancecharacteristics have been determined by [facility]. It has not beencleared or approved by the FDA. This assay has beenvalidated pursuant to the CLIA regulations and is used forclinical purposes. Health care providers, please contact your local [employer] genetic counselor or call [phone]) for assistance with interpretation of theseresults. Performed by: [facility] [address] ACTIVATED PROT C 3.09 RATIO 2.31-5.00 Ratios [...] supervised and results monitored byBjorn Cardoza, Ph.D., [facility], [facility]. MUTATION ANALYSIS:The Factor v Leiden (R560Q) mutation [NM 798464.2: c.1601G>A(p.R534Q)] in the Factor V gene is [...] its analytical performancecharacteristics have been determined by [facility]. It has not beencleared or approved by the FDA. This assay has beenvalidated pursuant to the CLIA regulations and is used forclinical purposes. Health care providers, please contact your local [employer] genetic counselor or call [phone]) for assistance with interpretation of theseresults. Performed by: [facility]/[place] [address] PROTEIN S FREE (test 56 % 68-126 [...] andpersistent positivity of antiphospholipid antibodies (IgG orIgM MOYN>40 GPL/MPL, IgG or IgM anti-B2GPI antibodies, or thepresence of a Lupus Anticoagulant). The InternationalConsensus guidelines suggest that these isotypes must bepresent on two or more occasions and at least 12 weeks apartto confirm antibody persistence. Although the IgA isotypehas been implicated in thrombotic events, these isotypeshave not yet been included into the APS criteria. UCDE-0-UBUFP I IGM SMU 0.0-20.0 (test code=GPIIGM) DJSH-2-ONQKQ I IGG SGU 0.0-20.0 (test code=GPIIGG) GTJD-7-LRMWY I IGA 0.5 AHMET 0.0-20.0 The Antiphospholipid [...] HIGH SENSITIVITY CRP mg/dl 0.000-0.747 (test code=CRPHS) [id number] 11:03:00 Test Item Value Reference Range Comments FIBRINOGEN (test code=FIB) 640 MG/DL 160-450 Excess administration of anticoagulants and/or FibrinDegradation Products may affect Fibrinogen value. FACTOR [id number] 11:03:00 Test Item Value Reference Range Comments [...] Antithrombin levels are not clinicallysignificant. PROTEIN C [id number] 11:03:00 Test Item Value Reference Range Comments [...] increased levels of Protein C. PROTEIN C [id number] 11:03:00 Test Item Value Reference Range Comments PROTEIN C ANTIGENIC (test 71 % 70-140 Decreased levels of Protein C code=PROTCAG) Antigen may be found incongenital deficiency, treatment with oral anticoagulants,liver disease, D.I.C. and post surgery. Performed by: [facility] [address] PROTEIN S [id number] 11:03:00 Test Item Value Reference Range Comments [...] with anincreased thrombotic risk. MTHF REDUCTASE (PCR) [id number] 11:03:00 Test Item Value Reference Range Comments MTHF REDUCTASE (PCR) 677 (test code=MTHFR 677) LUPUS ANTICOAGULANT [id number] 21:21:00 Test Item Value Reference Range Comments [...] reported result: 1.05 Edited by: SMITA on 07/06/18:804543 1510: SILICA CLOTTING previously reported as: 1.05 ARTERIAL THROMBOPHILIA [id number] 21:21:00 Test Item Value Reference Range Comments PROTHROMBIN 3 UNTRANSLATED (test code=WK8QZTF) ACTIVATED PROT C 3.09 RATIO 2.31-5.00 Ratios [...] yet been included into the APS criteria. DHWD-3-CMCVE I IGM SMU 0.0-20.0 (test code=GPIIGM) HRRT-2-KUFAS I IGG SGU 0.0-20.0 (test code=GPIIGG) WHCK-2-RFHFA I IGA 0.5 AHMET 0.0-20.0 The Antiphospholipid [...] HIGH SENSITIVITY CRP mg/dl 0.000-0.747 (test code=CRPHS) [id number] 21:21:00 Test Item Value Reference Range Comments FIBRINOGEN (test code=FIB) 640 MG/DL 160-450 Excess administration of anticoagulants and/or FibrinDegradation Products may affect Fibrinogen value. FACTOR [id number] 21:21:00 Test Item Value Reference Range Comments [...] Antithrombin levels are not clinicallysignificant. PROTEIN C [id number] 21:21:00 Test Item Value Reference Range Comments [...] increased levels of Protein C. PROTEIN C [id number] 21:21:00 Test Item Value Reference Range Comments PROTEIN C ANTIGENIC (test 71 % 70-140 Decreased levels of Protein C code=PROTCAG) Antigen may be found incongenital deficiency, treatment with oral anticoagulants,liver disease, D.I.C. and post surgery. Performed by: [facility] [place] [address] PROTEIN S [id number] 21:21:00 Test Item Value Reference Range Comments [...] with anincreased thrombotic risk. 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 RBPY-8-XNFLP I IGM SMU 0.0-20.0 (test code=GPIIGM) NULA-8-GLJMT I IGG SGU 0.0-20.0 (test code=GPIIGG) BPQU-7-ITNJD I IGA 0.5 AHMET 0.0-20.0 The Antiphospholipid [...] HIGH SENSITIVITY CRP mg/dl 0.000-0.747 (test code=CRPHS) [id number] 14:43:00 Test Item Value Reference Range Comments FIBRINOGEN (test code=FIB) 640 MG/DL 160-450 Excess administration of anticoagulants and/or FibrinDegradation Products may affect Fibrinogen value. FACTOR [id number] 14:43:00 Test Item Value Reference Range Comments [...] Antithrombin levels are not clinicallysignificant. PROTEIN C [id number] 14:43:00 Test Item Value Reference Range Comments [...] increased levels of Protein C. PROTEIN C [id number] 14:43:00 Test Item Value Reference Range Comments PROTEIN C ANTIGENIC (test 71 % 70-140 Decreased levels of Protein C code=PROTCAG) Antigen may be found incongenital deficiency, treatment with oral anticoagulants,liver disease, D.I.C. and post surgery. Performed by: [facility] [address] PROTEIN S [id number] 14:43:00 Test Item Value Reference Range Comments [...] with anincreased thrombotic risk. 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 ENNA-1-WYCUZ I IGM SMU <20 (test code=GPIIGM) BKDJ-1-RVMCO I IGG UNITS <20 (test code=GPIIGG) MUFT-8-HLWWZ I IGA 0.0-20.0 (test code=GPIIGA) HOMOCYSTEINE (test TEST NOT PERFORMED 3.2-10.7 code=HOMOCY) umol/L HIGH SENSITIVITY CRP mg/dl 0.000-0.747 (test code=CRPHS) [id number] 14:31:00 Test Item Value Reference Range Comments FIBRINOGEN (test code=FIB) 640 MG/DL 160-450 Excess administration of anticoagulants and/or FibrinDegradation Products may affect Fibrinogen value. FACTOR [id number] 14:31:00 Test Item Value Reference Range Comments [...] Antithrombin levels are not clinicallysignificant. PROTEIN C [id number] 14:31:00 Test Item Value Reference Range Comments [...] increased levels of Protein C. PROTEIN C [id number] 14:31:00 Test Item Value Reference Range Comments PROTEIN C ANTIGENIC (test 71 % 70-140 Decreased levels of Protein C code=PROTCAG) Antigen may be found incongenital deficiency, treatment with oral anticoagulants,liver disease, D.I.C. and post surgery. Performed by: [facility] [address] PROTEIN S [id number] 14:31:00 Test Item Value Reference Range Comments [...] with anincreased thrombotic risk. MTHF REDUCTASE (PCR) [id number] 14:31:00 Test Item Value Reference Range Comments MTHF REDUCTASE (PCR) 677 (test code=MTHFR 677)
[2018-12-07 15:20] LABS: Protime INR 3.38
[2018-12-07 15:35] LABS: ALT/SGPT 27 U/L (12-78); AST/SGOT 18 U/L (15-37); Albumin 3.4 g/dL (3.4-5.0); Alkaline Phosphatase 126 U/L (45-117); BUN Blood Urea Nitrogen 23 mg/dL (7-18); Bicarbonate 32 mmol/L (21-32); Bilirubin Direct 0.2 mg/dL (0-0.2); Bilirubin Total 0.5 mg/dL (0.2-1.0); Glucose Level 150 mg/dL (74-106); Magnesium 2.3 mg/dL (1.8-2.4); NT PRO-BNP 28 pg/mL (<125); Potassium 3.1 mmol/L (3.5-5.1); Protein, Total 8.7 g/dL (6.4-8.2); Sodium Level 133 mmol/L (136-145); Troponin (Emerg Dept Use Only) < 0.02 ng/mL (0.0-0.045)
--- NOTE | 2018-12-07 16:20 | EDPHYS ---
Physician Documentation [facility] Name: Marquis Nelson Age: 48 yrs Sex: Male : 1970 Arrival Date: 12/07/2018 Time: 15:01 Bed 3 Private MD: ED Physician Nawaf Calvin HPI: 12/07 15:45 This 48 yrs old Male presents to ER via EMS with complaints of Chest Pain. jr8 15:45 The patient or guardian reports chest pain that is located primarily in the substernal jr8 area. Onset: acutely, today, approximately 2 hours ago. The pain does not radiate. Associated signs and symptoms: The patient has no apparent associated signs or symptoms. The chest pain is described as a pressure. Duration: The patient or guardian reports a single episode, that is still ongoing, and unchanged. Modifying factors: The symptoms are alleviated by nothing. the symptoms are aggravated by nothing. Severity of pain: At its worst the pain was moderate in the emergency department the pain is unchanged. The patient has experienced similar episodes in the past, multiple times. It is unknown whether or not the patient has recently seen a physician. Stated that he has been compliant with his daily medication. While watching TV today started to have chest tightness. 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 Historical: - Allergies: 16:01 Beta Blockers (sensitive/hypotension); tw2 16:01 Flomax; tw2 16:01 Ibuprofen; tw2 16:01 Neurontin; tw2 16:01 Remeron; tw2 16:01 Skelaxin; tw2 16:01 Spironolactone; tw2 16:01 tramadol; tw2 16:01 Trazodone; tw2 16:01 Stadol; tw2 - PMHx: 16:01 ADD/ADHD; AAA; Pacemaker; Pulmonary Embolism; Myocardial infarction; CHF; GERD; tw2 Anxiety; Anemia; Atrial Fib; High Cholesterol; - Immunization history:: Adult Immunizations. - Social history:: Smoking status: . - Ebola Screening: : Patient denies travel to an Ebola-affected area in the 21 days before illness onset. ROS: 15:45 Eyes: Negative for injury, pain, redness, and discharge, ENT: Negative for injury, jr8 pain, and discharge, Neck: Negative for injury, pain, and swelling, Respiratory: Negative for shortness of breath, cough, wheezing, and pleuritic chest pain, Abdomen/GI: Negative for abdominal pain, nausea, vomiting, diarrhea, and constipation, Back: Negative for injury and pain, MS/Extremity: Negative for injury and deformity, Skin: Negative for injury, rash, and discoloration, Neuro: Negative for headache, weakness, numbness, tingling, and seizure. 15:45 Cardiovascular: Positive for chest pain, Negative for edema, orthopnea, palpitations, paroxysmal nocturnal dyspnea. Exam: 15:45 Eyes: Pupils equal round and reactive to light, extra-ocular motions intact. Lids and jr8 lashes normal. Conjunctiva and sclera are non-icteric and not injected. Cornea within normal limits. Periorbital areas with no swelling, redness, or edema. ENT: Nares patent. No nasal discharge, no septal abnormalities noted. Tympanic membranes are normal and external auditory canals are clear. Oropharynx with no redness, swelling, or masses, exudates, or evidence of obstruction, uvula midline. Mucous membranes moist. Neck: Trachea midline, no thyromegaly or masses palpated, and no cervical lymphadenopathy. Supple, full range of motion without nuchal rigidity, or vertebral point tenderness. No Meningismus. Chest/axilla: Normal chest wall appearance and motion. Nontender with no deformity. No lesions are appreciated. Cardiovascular: Regular rate and rhythm with a normal S1 and S2. No gallops, murmurs, or rubs. Normal PMI, no JVD. No pulse deficits. Respiratory: Lungs have equal breath sounds bilaterally, clear to auscultation and percussion. No rales, rhonchi or wheezes noted. No increased work of breathing, no retractions or nasal flaring. Abdomen/GI: Soft, non-tender, with normal bowel sounds. No distension or tympany. No guarding or rebound. No evidence of tenderness throughout. Back: No spinal tenderness. No costovertebral tenderness. Full range of motion. Skin: Warm, dry with normal turgor. Normal color with no rashes, no lesions, and no evidence of cellulitis. MS/ Extremity: Pulses equal, no cyanosis. Neurovascular intact. Full, normal range of motion. Neuro: Awake and alert, GCS 15, oriented to person, place, time, and situation. Cranial nerves II-XII grossly intact. Motor strength 5/5 in all extremities. Sensory grossly intact. Cerebellar exam normal. Normal gait. Vital Signs: 15:02 BP 103 / 79; Pulse 84; Resp 17; Pulse Ox 94% on R/A; tw2 15:56 BP 102 / 78; Pulse 84; Resp 13; Pulse Ox 95% on R/A; tw2 16:30 BP 107 / 62; Pulse 76; Resp 17; Pulse Ox 95% on R/A; tw2 MDM: 15:05 Patient medically screened. jr8 16:18 The patient was not given aspirin in the Emergency Department. Patient reports taking jr8 aspirin within the past 24 hours. Data reviewed: vital signs, nurses notes, lab test result(s), EKG, radiologic studies, plain films. Data interpreted: Pulse oximetry: on room air is 95 %. Interpretation: normal. 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 12/07 15:02 Order name: Basic Metabolic Panel; Complete Time: 15:39 12/07 15:02 Order name: CBC with Diff; Complete Time: 15:39 12/07 15:02 Order name: LFT's; Complete Time: 15:39 12/07 15:02 Order name: Magnesium; Complete Time: 15:39 12/07 15:02 Order name: NT PRO-BNP; Complete Time: 15:39 12/07 15:02 Order name: PT-INR; Complete Time: 15:39 12/07 15:02 Order name: Troponin (emerg Dept Use Only); Complete Time: 15:39 12/07 15:02 Order name: XRAY Chest (1 view); Complete Time: 16:22 12/07 15:02 Order name: EKG; Complete Time: 15:05 12/07 15:02 Order name: Cardiac monitoring; Complete Time: 15:56 12/07 15:02 Order name: EKG - Nurse/Tech; Complete Time: 15:56 12/07 15:02 Order name: IV Saline Lock; Complete Time: 15:56 12/07 15:02 Order name: Labs collected and sent; Complete Time: 15:56 12/07 15:02 Order name: O2 Per Protocol; Complete Time: 15:56 12/07 15:02 Order name: O2 Sat Monitoring; Complete Time: 15:56 Administered Medications: 16:20 Drug: Potassium Chloride 20 mEq Route: PO; tw2 Disposition: 17:29 Co-signature as Attending Physician, Nawaf Calvin MD. rn Disposition: 12/07/18 16:19 Discharged to Home. Impression: Chest pain, unspecified. - Condition is Stable. - Discharge Instructions: Nonspecific Chest Pain. - Medication Reconciliation Form, Thank You Letter, Antibiotic Education, Prescription Opioid Use form. - Follow up: Private Physician; When: 1 - 2 days; Reason: Recheck today's complaints, Continuance of care, Re-evaluation by your physician. - Problem is new. - Symptoms have improved. Signatures: Dispatcher [employer] EDCatarina Lee RN RN Nawaf Calvin MD MD rn Roszak, Josh, PA PA jr8 Kerry Russell RN RN tw2 Corrections: (The following items were deleted from the chart) 16:31 16:19 12/07/2018 16:19 Discharged to Home. Impression: Chest pain, unspecified. tw2 Condition is Stable. Forms are Medication Reconciliation Form, Thank You Letter, Antibiotic Education, Prescription Opioid Use. Follow up: Private Physician; When: 1 - 2 days; Reason: Recheck today's complaints, Continuance of care, Re-evaluation by your physician. Problem is new. Symptoms have improved. jr8
--- NOTE | 2018-12-07 16:20 | ER ---
Nurse's Notes [facility] Name: Marquis Nelson Age: 48 yrs Sex: Male : 1970 Arrival Date: 12/07/2018 Time: 15:01 Bed 3 Private MD: Diagnosis: Chest pain, unspecified Presentation: 12/07 15:10 Presenting complaint: Patient states: chest pain for one hour. Transition of care: patient was not received from another setting of care. Onset of symptoms was December 07, 2018 at 14:00. Risk Assessment: Do you want to hurt yourself or someone else? Patient reports no desire to harm self or others. Initial Sepsis Screen: Does the patient meet any 2 criteria? No. Patient's initial sepsis screen is negative. Does the patient have a suspected source of infection? No. Patient's initial sepsis screen is negative. Care prior to arrival: None. 15:32 Method Of Arrival: EMS: [facility] 15:32 Acuity: THANH 3 Triage Assessment: 19:34 General: Appears in no apparent distress. comfortable, Behavior is calm, cooperative, appropriate for age. Pain: Complains of pain in chest Pain currently is 7 out of 10 on a pain scale. Pain began suddenly. Neuro: No deficits noted. Cardiovascular: Heart tones S1 S2 present Capillary refill < 3 seconds in bilateral fingers toes Pulses are all present. Respiratory: No deficits noted. GI: No signs and/or symptoms were reported involving the gastrointestinal system. : No signs and/or symptoms were reported regarding the genitourinary system. Derm: Skin is pink, warm \T\ dry. Historical: - Allergies: 16:01 Beta Blockers (sensitive/hypotension); tw2 16:01 Flomax; tw2 16:01 Ibuprofen; tw2 16:01 Neurontin; tw2 16:01 Remeron; tw2 16:01 Skelaxin; tw2 16:01 Spironolactone; tw2 16:01 tramadol; tw2 16:01 Trazodone; tw2 16:01 Stadol; tw2 - PMHx: 16:01 ADD/ADHD; AAA; Pacemaker; Pulmonary Embolism; Myocardial infarction; CHF; GERD; tw2 Anxiety; Anemia; Atrial Fib; High Cholesterol; - Immunization history:: Adult Immunizations. - Social history:: Smoking status: . - Ebola Screening: : Patient denies travel to an Ebola-affected area in the 21 days before illness onset. Screenin:57 Abuse screen: Denies threats or abuse. Nutritional screening: No deficits noted. tw2 Tuberculosis screening: No symptoms or risk factors identified. Fall Risk None identified. Assessment: 16:30 Reassessment: Patient appears in no apparent distress at this time. No changes from tw2 previously documented assessment. Patient and/or family updated on plan of care and expected duration. Pain level reassessed. Patient is alert, oriented x 3, equal unlabored respirations, skin warm/dry/pink. Vital Signs: 15:02 BP 103 / 79; Pulse 84; Resp 17; Pulse Ox 94% on R/A; tw2 15:56 BP 102 / 78; Pulse 84; Resp 13; Pulse Ox 95% on R/A; tw2 16:30 BP 107 / 62; Pulse 76; Resp 17; Pulse Ox 95% on R/A; tw2 ED Course: 15:01 Patient arrived in ED. tw2 15:01 Catarina Whatley RN is Primary Nurse. 15:01 Bed in low position. Call light in reach. Adult w/ patient. nurse monitoring on. Pulse tw2 ox on. NIBP on. 15:05 Alvaro Anderson PA is PHCP. jr8 15:05 Nawaf Calvin MD is Attending Physician. jr8 15:14 EKG done, by technology administrator. reviewed by Nawaf Calvin MD. 3 15:16 XRAY Chest (1 view) In Process Unspecified. EDPA 15:33 Triage completed. 15:57 Arm band placed on. tw2 16:31 No provider procedures requiring assistance completed. IV discontinued, intact, tw2 bleeding controlled, No redness/swelling at site. Pressure dressing applied. Administered Medications: 16:20 Drug: Potassium Chloride 20 mEq Route: PO; tw2 Outcome: 16:19 Discharge ordered by . jr8 16:31 Discharged to home ambulatory. tw2 16:31 Condition: stable 16:31 Discharge instructions given to patient, Instructed on discharge instructions, follow up and referral plans. Demonstrated understanding of instructions, follow-up care. 16:31 Patient left the ED. tw2 Signatures: Dispatcher [employer] EDPA Catarina Whatley RN Alvaro Augustin ch, PA PA jr8 Kerry Russell RN RN tw2 Shantal Lnogo 3 Corrections: (The following items were deleted from the chart) 16:30 16:30 BP 107 / 62; Pulse 76bpm; Resp 17bpm; Pulse Ox 90% RA; tw2 tw2
--- NOTE | 2018-12-07 16:20 | RAD REPORT ---
EXAM DESCRIPTION: RAD - Chest Single View - 12/07/2018 3:16 pm CLINICAL HISTORY: CHEST PAIN Chest pain. COMPARISON: Chest Single View dated 10/18/2018; Chest Single View dated 10/06/2018; Chest Pa And Lat ( 2 Views) dated 08/10/2018; Chest Single View dated 05/23/2018 FINDINGS: Portable technique limits examination quality. The lungs are grossly clear. The heart is mildly enlarged with a dual lead pacer device present. No d isplaced fractures. IMPRESSION: No acute intrathoracic process suspected.
[2018-12-07 16:37] VITALS: O2SAT 95
[2018-12-07 16:38] VITALS: BP 107/62
[2018-12-07] MEDS ORDERED: POTASSIUM CL SA 10 MEQ TAB PO ONE (16:40)
--- NOTE | 2018-12-07 22:23 | EKG ---
Test Date: 2018-12-07 Test Time: 15:00:58 Highway Engineering Technician: SUMI MEASUREMENT RESULTS: Intervals: Rate: 93 WV: 178 QRSD: 146 QT: 402 QTc: 499 [place]: P: 39 WV: 178 QRS: -4 T: 28 INTERPRETIVE STATEMENTS: Normal sinus rhythm Right bundle branch block Inferior infarct, age undetermined Anterolateral infarct, age undetermined Abnormal ECG Compared to ECG 11/11/2018 22:55:38 No significant changes Electronically Signed On 12-07-18 22:22:35 CDT by Guihlerme Sharma
== END 2018-12-07 16:31 | disposition home or self-care (01) ==
LOC: ER 15:00
DX: R07.9 Chest pain, unspecified (principal); F90.9 Attention-deficit hyperactivity disorder, unspecified type; I25.2 Old myocardial infarction; I50.9 Heart failure, unspecified; D64.9 Anemia, unspecified; I48.91 Unspecified atrial fibrillation; E78.00 Pure hypercholesterolemia, unspecified
CPT/HCPCS: 36415; 71045; 80048; 80076; 83735; 83880; 84484; 85025; 85610; 93005; 99284

== ENCOUNTER 2019-05-11 00:34 | Observation (INO) | payer OTHER, SELFPAY ==
--- OUTSIDE RECORDS SUMMARY | 2019-05-11 00:38 | XMS REPORT ---
:1970 Author Organization [facility] Address [address] [place] [address] Care Team Providers Name Role Phone Unavailable [...] reported result: 1.05 Edited by: INFCE on 07/06/18:229291 1510: SILICA CLOTTING previously reported as: 1.05 ARTERIAL THROMBOPHILIA [id number] 12:28:00 Test Item Value Reference Range Comments PROTHROMBIN 3 NO MUTATION () PROTHROMBIN (FACTOR II) 19905Q>A UNTRANSLATED (test DETECTED MUTATION INTERPRETATION:This code=JA0GECF) individual is negative (normal) for the N19540Vwaamtrva in the Prothrombin/Factor II gene. Increased riskof thrombophilia can be caused by a variety of genetic andnon-genetic factors not screened for this assay. Laboratory testing supervised and results monitored byTarah Segura, Ph.D., [facility], [facility], [facility]. MUTATION ANALYSIS:The F51965Y mutation [OL341203.1:g.47764H>A (c.*97G>A)] inthe Prothrombin/Factor II gene is the second most commoninherited risk factor for thrombosis occuring inapproximately 2% of Caucasians. Presence of the mutation isassociated with an elevation of prothrombin levels to about30% above normal in heterozygotes and 70% above normal inhomozygotes. The N71493M mutation is detected bypolymerase chain reaction (PCR) and flourescent probehybridization to the targeted region, followed by meltingcurve analysis with a real time PCR system. Although rare,false positive or false negative results may occur. Allresults should be interpreted in the context of clinicalfindings, relevant history, and other laboratory data. This test was developed and its analytical performancecharacteristics have been determined by [facility]. It has not beencleared or approved by the FDA. This assay has beenvalidated pursuant to the CLIA regulations and is used forclinical purposes. Health care providers, please contact your local [facility] genetic counselor or call [phone]) for assistance with interpretation of theseresults. Performed by: [facility]/[place] [address] ACTIVATED PROT C 3.09 RATIO 2.31-5.00 Ratios [...] Ph.D., [facility], [facility]. MUTATION ANALYSIS:The Factor v Leiden (R560Q) mutation [NM 704229.2: c.1601G>A(p.R534Q)] in the Factor V gene is [...] its analytical performancecharacteristics have been determined by [facility]. It has not beencleared or approved by the FDA. This assay has beenvalidated pursuant to the CLIA regulations and is used forclinical purposes. Health care providers, please contact your local [facility] genetic counselor or call [phone]) for assistance with interpretation of theseresults. Performed by: [facility] [address] PROTEIN S FREE (test 56 % 68-126 [...] yet been included into the APS criteria. GFAX-2-LJZHL I IGM 0.8 SMU 0.0-20.0 (test code=GPIIGM) HTLE-1-FZZPO I IGG 0.0 SGU 0.0-20.0 (test code=GPIIGG) TCQM-6-ELFMA I IGA 0.5 AHMET 0.0-20.0 The Antiphospholipid [...] SENSITIVITY CRP 2.347 mg/dl 0.000-0.747 (test code=CRPHS) [id number] 12:28:00 Test Item Value Reference Range Comments FIBRINOGEN (test code=FIB) 640 MG/DL 160-450 Excess administration of anticoagulants and/or FibrinDegradation Products may affect Fibrinogen value. FACTOR [id number] 12:28:00 Test Item Value Reference Range Comments [...] Antithrombin levels are not clinicallysignificant. PROTEIN C [id number] 12:28:00 Test Item Value Reference Range Comments [...] increased levels of Protein C. PROTEIN C [id number] 12:28:00 Test Item Value Reference Range Comments PROTEIN C ANTIGENIC (test 71 % 70-140 Decreased levels of Protein C code=PROTCAG) Antigen may be found incongenital deficiency, treatment with oral anticoagulants,liver disease, D.I.C. and post surgery. Performed by: [facility] [address] PROTEIN S [id number] 12:28:00 Test Item Value Reference Range Comments PROTEIN S TOTAL (test 68 % 70-140 Performed by: [facility] code=PROTSTOT) [facility] [address] PROTEIN S FUNC (test 70 % 74-148 Protein S deficiency may be acquired code=PROTSFN) due to recentthrombosis, oral anticoagulant therapy, , oralcontraceptives or hormone replacement therapy, liverdysfunction, recent surgery, DIC, and vitamin K deficiency.Hereditary deficiency of Protein S show decreased levels butare rare. Elevated Protein S levels are not clinicallysignificant. Only decreased levels are associated with anincreased thrombotic risk. MTHF REDUCTASE (PCR) [id number] 12:28:00 Test Item Value Reference Range Comments MTHF REDUCTASE (PCR) 677 (test code=MTHFR TEST NOT PERFORMED 677) LUPUS ANTICOAGULANT [id number] 11:48:00 Test Item Value Reference Range Comments [...] reported result: 1.05 Edited by: SMITA on 07/06/18:806009 1510: SILICA CLOTTING previously reported as: 1.05 ARTERIAL THROMBOPHILIA [id number] 11:48:00 Test Item Value Reference Range Comments PROTHROMBIN 3 NO MUTATION () PROTHROMBIN (FACTOR II) 53475P>A UNTRANSLATED (test DETECTED MUTATION INTERPRETATION:This code=ZV1HRXJ) individual is negative (normal) for the A14069Fvmotnjie in the Prothrombin/Factor II gene. Increased riskof thrombophilia can be caused by a variety of genetic andnon-genetic factors not screened for this assay. Laboratory testing supervised and results monitored byTarah Segura, Ph.D., DAB, [facility], [facility]. MUTATION ANALYSIS:The Y44678K mutation [BB710411.1:g.58343J>A (c.*97G>A)] inthe Prothrombin/Factor II gene is the second most commoninherited risk factor for thrombosis occuring inapproximately 2% of Caucasians. Presence of the mutation isassociated with an elevation of prothrombin levels to about30% above normal in heterozygotes and 70% above normal inhomozygotes. The Z71549J mutation is detected bypolymerase chain reaction (PCR) and flourescent probehybridization to the targeted region, followed by meltingcurve analysis with a real time PCR system. Although rare,false positive or false negative results may occur. Allresults should be interpreted in the context of clinicalfindings, relevant history, and other laboratory data. This test was developed and its analytical performancecharacteristics have been determined by [facility]. It has not beencleared or approved by the FDA. This assay has beenvalidated pursuant to the CLIA regulations and is used forclinical purposes. Health care providers, please contact your local [facility] genetic counselor or call [phone]) for assistance with interpretation of theseresults. Performed by: [facility] [address] ACTIVATED PROT C 3.09 RATIO 2.31-5.00 Ratios [...] Ph.D., [facility], [facility]. MUTATION ANALYSIS:The Factor v Leiden (R560Q) mutation [NM 991252.2: c.1601G>A(p.R534Q)] in the Factor V gene is [...] its analytical performancecharacteristics have been determined by [facility]. It has not beencleared or approved by the FDA. This assay has beenvalidated pursuant to the CLIA regulations and is used forclinical purposes. Health care providers, please contact your local [facility] genetic counselor or call [phone]) for assistance with interpretation of theseresults. Performed by: [facility]/[place] [address] PROTEIN S FREE (test 56 % 68-126 [...] yet been included into the APS criteria. WEXI-6-WKEFB I IGM 0.8 SMU 0.0-20.0 (test code=GPIIGM) GGTU-2-VKTBB I IGG 0.0 SGU 0.0-20.0 (test code=GPIIGG) FQYP-4-TEKBN I IGA 0.5 AHMET 0.0-20.0 The Antiphospholipid [...] SENSITIVITY CRP 2.347 mg/dl 0.000-0.747 (test code=CRPHS) [id number] 11:48:00 Test Item Value Reference Range Comments FIBRINOGEN (test code=FIB) 640 MG/DL 160-450 Excess administration of anticoagulants and/or FibrinDegradation Products may affect Fibrinogen value. FACTOR [id number] 11:48:00 Test Item Value Reference Range Comments [...] Antithrombin levels are not clinicallysignificant. PROTEIN C [id number] 11:48:00 Test Item Value Reference Range Comments [...] increased levels of Protein C. PROTEIN C [id number] 11:48:00 Test Item Value Reference Range Comments PROTEIN C ANTIGENIC (test 71 % 70-140 Decreased levels of Protein C code=PROTCAG) Antigen may be found incongenital deficiency, treatment with oral anticoagulants,liver disease, D.I.C. and post surgery. Performed by: [facility] [address] PROTEIN S [id number] 11:48:00 Test Item Value Reference Range Comments PROTEIN S TOTAL (test 68 % 70-140 Performed by: [facility] code=PROTSTOT) Diagnostics/[place] [address] PROTEIN S FUNC (test 70 % 74-148 Protein S deficiency may be acquired code=PROTSFN) due to recentthrombosis, oral anticoagulant therapy, , oralcontraceptives or hormone replacement therapy, liverdysfunction, recent surgery, DIC, and vitamin K deficiency.Hereditary deficiency of Protein S show decreased levels butare rare. Elevated Protein S levels are not clinicallysignificant. Only decreased levels are associated with anincreased thrombotic risk. MTHF REDUCTASE (PCR) [id number] 11:48:00 Test Item Value Reference Range Comments MTHF REDUCTASE (PCR) 677 (test code=MTHFR 677) LUPUS ANTICOAGULANT [id number] 11:04:00 Test Item Value Reference Range Comments [...] reported result: 1.05 Edited by: SMITA on 07/06/18:247295 1510: SILICA CLOTTING previously reported as: 1.05 ARTERIAL THROMBOPHILIA [id number] 11:04:00 Test Item Value Reference Range Comments PROTHROMBIN 3 NO MUTATION () PROTHROMBIN (FACTOR II) 73232O>A UNTRANSLATED (test DETECTED MUTATION INTERPRETATION:This code=FZ1ZFZJ) individual is negative (normal) for the H20837Fdkmctoib in the Prothrombin/Factor II gene. Increased riskof thrombophilia can be caused by a variety of genetic andnon-genetic factors not screened for this assay. Laboratory testing supervised and results monitored byTarah Segura, Ph.D., [facility], [facility], [facility]. MUTATION ANALYSIS:The T14508S mutation [WS343215.1:g.08398S>A (c.*97G>A)] inthe Prothrombin/Factor II gene is the second most commoninherited risk factor for thrombosis occuring inapproximately 2% of Caucasians. Presence of the mutation isassociated with an elevation of prothrombin levels to about30% above normal in heterozygotes and 70% above normal inhomozygotes. The H66595P mutation is detected bypolymerase chain reaction (PCR) and flourescent probehybridization to the targeted region, followed by meltingcurve analysis with a real time PCR system. Although rare,false positive or false negative results may occur. Allresults should be interpreted in the context of clinicalfindings, relevant history, and other laboratory data. This test was developed and its analytical performancecharacteristics have been determined by [facility]. It has not beencleared or approved by the FDA. This assay has beenvalidated pursuant to the CLIA regulations and is used forclinical purposes. Health care providers, please contact your local [facility] genetic counselor or call [phone]) for assistance with interpretation of theseresults. Performed by: [facility]/[place] [address] ACTIVATED PROT C 3.09 RATIO 2.31-5.00 Ratios [...] Ph.D., [facility], [facility]. MUTATION ANALYSIS:The Factor v Leiden (R560Q) mutation [NM 614575.2: c.1601G>A(p.R534Q)] in the Factor V gene is [...] its analytical performancecharacteristics have been determined by [facility]. It has not beencleared or approved by the FDA. This assay has beenvalidated pursuant to the CLIA regulations and is used forclinical purposes. Health care providers, please contact your local [facility] genetic counselor or call [phone]) for assistance with interpretation of theseresults. Performed by: [facility]/[place] [address] PROTEIN S FREE (test 56 % 68-126 [...] yet been included into the APS criteria. WNOM-9-PUKSQ I IGM SMU 0.0-20.0 (test code=GPIIGM) IEBV-9-DNDVF I IGG SGU 0.0-20.0 (test code=GPIIGG) ZZTW-5-FVQRQ I IGA 0.5 AHMET 0.0-20.0 The Antiphospholipid [...] HIGH SENSITIVITY CRP mg/dl 0.000-0.747 (test code=CRPHS) [id number] 11:04:00 Test Item Value Reference Range Comments FIBRINOGEN (test code=FIB) 640 MG/DL 160-450 Excess administration of anticoagulants and/or FibrinDegradation Products may affect Fibrinogen value. FACTOR [id number] 11:04:00 Test Item Value Reference Range Comments [...] Antithrombin levels are not clinicallysignificant. PROTEIN C [id number] 11:04:00 Test Item Value Reference Range Comments [...] increased levels of Protein C. PROTEIN C [id number] 11:04:00 Test Item Value Reference Range Comments PROTEIN C ANTIGENIC (test 71 % 70-140 Decreased levels of Protein C code=PROTCAG) Antigen may be found incongenital deficiency, treatment with oral anticoagulants,liver disease, D.I.C. and post surgery. Performed by: [facility]/[place] [address] PROTEIN S [id number] 11:04:00 Test Item Value Reference Range Comments PROTEIN S TOTAL (test 68 % 70-140 Performed by: [facility] code=PROTSTOT) Diagnostics/[place] [address] PROTEIN S FUNC (test 70 % 74-148 Protein S deficiency may be acquired code=PROTSFN) due to recentthrombosis, oral anticoagulant therapy, , oralcontraceptives or hormone replacement therapy, liverdysfunction, recent surgery, DIC, and vitamin K deficiency.Hereditary deficiency of Protein S show decreased levels butare rare. Elevated Protein S levels are not clinicallysignificant. Only decreased levels are associated with anincreased thrombotic risk. MTHF REDUCTASE (PCR) [id number] 11:04:00 Test Item Value Reference Range Comments MTHF REDUCTASE (PCR) 677 (test code=MTHFR 677) LUPUS ANTICOAGULANT [id number] 11:03:00 Test Item Value Reference Range Comments [...] reported result: 1.05 Edited by: SMITA on 07/06/18:932635/ 1510: SILICA CLOTTING previously reported as: 1.05 ARTERIAL THROMBOPHILIA [id number] 11:03:00 Test Item Value Reference Range Comments PROTHROMBIN 3 NO MUTATION () PROTHROMBIN (FACTOR II) 19739W>A UNTRANSLATED (test DETECTED MUTATION INTERPRETATION:This code=MZ9TKUG) individual is negative (normal) for the D94158Bnpsoosio in the Prothrombin/Factor II gene. Increased riskof thrombophilia can be caused by a variety of genetic andnon-genetic factors not screened for this assay. Laboratory testing supervised and results monitored byTarah Segura, Ph.D., DAB, [facility], [facility]. MUTATION ANALYSIS:The D77289Y mutation [AO770867.1:g.93190P>A (c.*97G>A)] inthe Prothrombin/Factor II gene is the second most commoninherited risk factor for thrombosis occuring inapproximately 2% of Caucasians. Presence of the mutation isassociated with an elevation of prothrombin levels to about30% above normal in heterozygotes and 70% above normal inhomozygotes. The M92783Q mutation is detected bypolymerase chain reaction (PCR) and flourescent probehybridization to the targeted region, followed by meltingcurve analysis with a real time PCR system. Although rare,false positive or false negative results may occur. Allresults should be interpreted in the context of clinicalfindings, relevant history, and other laboratory data. This test was developed and its analytical performancecharacteristics have been determined by [facility]. It has not beencleared or approved by the FDA. This assay has beenvalidated pursuant to the CLIA regulations and is used forclinical purposes. Health care providers, please contact your local [facility] genetic counselor or call [phone]) for assistance with interpretation of theseresults. Performed by: [facility]/[place] [address] ACTIVATED PROT C 3.09 RATIO 2.31-5.00 Ratios [...] Ph.D., [facility], [facility]. MUTATION ANALYSIS:The Factor v Leiden (R560Q) mutation [NM 583531.2: c.1601G>A(p.R534Q)] in the Factor V gene is [...] its analytical performancecharacteristics have been determined by [facility]. It has not beencleared or approved by the FDA. This assay has beenvalidated pursuant to the CLIA regulations and is used forclinical purposes. Health care providers, please contact your local [facility] genetic counselor or call [phone]) for assistance with interpretation of theseresults. Performed by: [facility]/[place] [address] PROTEIN S FREE (test 56 % 68-126 [...] yet been included into the APS criteria. GKBQ-4-CLQSZ I IGM SMU 0.0-20.0 (test code=GPIIGM) XSOQ-4-GLYUM I IGG SGU 0.0-20.0 (test code=GPIIGG) QZWP-6-MMLFK I IGA 0.5 AHMET 0.0-20.0 The Antiphospholipid [...] HIGH SENSITIVITY CRP mg/dl 0.000-0.747 (test code=CRPHS) [id number] 11:03:00 Test Item Value Reference Range Comments FIBRINOGEN (test code=FIB) 640 MG/DL 160-450 Excess administration of anticoagulants and/or FibrinDegradation Products may affect Fibrinogen value. FACTOR [id number] 11:03:00 Test Item Value Reference Range Comments [...] Antithrombin levels are not clinicallysignificant. PROTEIN C [id number] 11:03:00 Test Item Value Reference Range Comments [...] increased levels of Protein C. PROTEIN C [id number] 11:03:00 Test Item Value Reference Range Comments PROTEIN C ANTIGENIC (test 71 % 70-140 Decreased levels of Protein C code=PROTCAG) Antigen may be found incongenital deficiency, treatment with oral anticoagulants,liver disease, D.I.C. and post surgery. Performed by: [facility]/[place] [address] PROTEIN S [id number] 11:03:00 Test Item Value Reference Range Comments [...] with anincreased thrombotic risk. MTHF REDUCTASE (PCR) [id number] 11:03:00 Test Item Value Reference Range Comments MTHF REDUCTASE (PCR) 677 (test code=MTHFR 677) LUPUS ANTICOAGULANT [id number] 21:21:00 Test Item Value Reference Range Comments [...] reported result: 1.05 Edited by: SMITA on 07/06/18:016968 1510: SILICA CLOTTING previously reported as: 1.05 ARTERIAL THROMBOPHILIA [id number] 21:21:00 Test Item Value Reference Range Comments PROTHROMBIN 3 UNTRANSLATED (test code=XE5MKGV) ACTIVATED PROT C 3.09 RATIO 2.31-5.00 Ratios [...] yet been included into the APS criteria. GCII-2-WAIAB I IGM SMU 0.0-20.0 (test code=GPIIGM) SJUE-9-HHPBA I IGG SGU 0.0-20.0 (test code=GPIIGG) CMET-3-HJCDU I IGA 0.5 AHMET 0.0-20.0 The Antiphospholipid [...] HIGH SENSITIVITY CRP mg/dl 0.000-0.747 (test code=CRPHS) [id number] 21:21:00 Test Item Value Reference Range Comments FIBRINOGEN (test code=FIB) 640 MG/DL 160-450 Excess administration of anticoagulants and/or FibrinDegradation Products may affect Fibrinogen value. FACTOR [id number] 21:21:00 Test Item Value Reference Range Comments [...] Antithrombin levels are not clinicallysignificant. PROTEIN C [id number] 21:21:00 Test Item Value Reference Range Comments [...] increased levels of Protein C. PROTEIN C [id number] 21:21:00 Test Item Value Reference Range Comments PROTEIN C ANTIGENIC (test 71 % 70-140 Decreased levels of Protein C code=PROTCAG) Antigen may be found incongenital deficiency, treatment with oral anticoagulants,liver disease, D.I.C. and post surgery. Performed by: [facility] [address] PROTEIN S [id number] 21:21:00 Test Item Value Reference Range Comments [...] with anincreased thrombotic risk. 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 LJWU-7-XKKUM I IGM SMU 0.0-20.0 (test code=GPIIGM) GCTN-2-MFLJO I IGG SGU 0.0-20.0 (test code=GPIIGG) ZNRI-1-GJLDD I IGA 0.5 AHMET 0.0-20.0 The Antiphospholipid [...] HIGH SENSITIVITY CRP mg/dl 0.000-0.747 (test code=CRPHS) [id number] 14:43:00 Test Item Value Reference Range Comments FIBRINOGEN (test code=FIB) 640 MG/DL 160-450 Excess administration of anticoagulants and/or FibrinDegradation Products may affect Fibrinogen value. FACTOR [id number] 14:43:00 Test Item Value Reference Range Comments [...] Antithrombin levels are not clinicallysignificant. PROTEIN C [id number] 14:43:00 Test Item Value Reference Range Comments [...] increased levels of Protein C. PROTEIN C [id number] 14:43:00 Test Item Value Reference Range Comments PROTEIN C ANTIGENIC (test 71 % 70-140 Decreased levels of Protein C code=PROTCAG) Antigen may be found incongenital deficiency, treatment with oral anticoagulants,liver disease, D.I.C. and post surgery. Performed by: [facility]/[place] [address] PROTEIN S [id number] 14:43:00 Test Item Value Reference Range Comments [...] with anincreased thrombotic risk. MTHF REDUCTASE (PCR) [id number] 14:43:00 Test Item Value Reference Range Comments MTHF REDUCTASE (PCR) 677 (test code=MTHFR 677) LUPUS ANTICOAGULANT [id number] 14:31:00 Test Item Value Reference Range Comments [...] 61.8-83.8 Sec Effective 07/21/2013 PTT 1:1 MIX CLINICAL IMPLEMENTATION SPECIALIST (test SECS code=PTTMIX2) PTT 1:3 MIX (test [...] reported result: 1.05 Edited by: SMITA on 07/06/18:804090 1510: SILICA CLOTTING previously reported as: 1.05 ARTERIAL THROMBOPHILIA [id number] 14:31:00 Test Item Value Reference Range Comments PROTHROMBIN 3 UNTRANSLATED (test code=TX9VHFF) ACTIVATED PROT C 3.09 RATIO 2.31-5.00 Ratios [...] yet been included into the APS criteria. BSUF-5-JQRSV I IGM SMU <20 (test code=GPIIGM) PPJO-9-MBMVB I IGG UNITS <20 (test code=GPIIGG) JBPN-7-AUZCZ I IGA 0.0-20.0 (test code=GPIIGA) HOMOCYSTEINE (test TEST NOT PERFORMED 3.2-10.7 code=HOMOCY) umol/L HIGH SENSITIVITY CRP mg/dl 0.000-0.747 (test code=CRPHS) [id number] 14:31:00 Test Item Value Reference Range Comments FIBRINOGEN (test code=FIB) 640 MG/DL 160-450 Excess administration of anticoagulants and/or FibrinDegradation Products may affect Fibrinogen value. FACTOR [id number] 14:31:00 Test Item Value Reference Range Comments [...] Antithrombin levels are not clinicallysignificant. PROTEIN C [id number] 14:31:00 Test Item Value Reference Range Comments [...] increased levels of Protein C. PROTEIN C [id number] 14:31:00 Test Item Value Reference Range Comments PROTEIN C ANTIGENIC (test 71 % 70-140 Decreased levels of Protein C code=PROTCAG) Antigen may be found incongenital deficiency, treatment with oral anticoagulants,liver disease, D.I.C. and post surgery. Performed by: [facility]/[place] [address] PROTEIN S [id number] 14:31:00 Test Item Value Reference Range Comments [...] with anincreased thrombotic risk. MTHF REDUCTASE (PCR) [id number] 14:31:00 Test Item Value Reference Range Comments MTHF REDUCTASE (PCR) 677 (test code=MTHFR 677)
--- OUTSIDE RECORDS SUMMARY | 2019-05-11 00:40 | XMS REPORT | Clinical Summary ---
:1970 Author Organization [facility] - [facility] Address [address] [place] [address] Care Team Providers Name Role Phone Lilibeth Andrade MD Primary Care Provider Libby Espinoza RN Unavailable Unavailable Al Valiente MD Unavailable Junito Quezada MD Unavailable Karena Anand [employer] Unavailable Unavailable Tito Kirkpatrick Unavailable Allergies Active Allergy Reactions Severity Noted Date Comments Adhesive Tape-Silicones Other - See 04/24/2017 Paper tape only !! comments Tears skin. Beta-Blockers Other - See Medium 07/02/2016 Per patient "heart (Beta-Adrenergic Blocking comments rate drop, lethargic, Agts) weak" Tamsulosin Hcl Other - See 06/12/2016 comments Gabapentin Other - See 07/05/2016 diaphoretic comments Mirtazapine Other - See 08/28/2018 Urinary issues, comments gaining weight Spironolactone Other - See 03/18/2017 Breast tenderness comments Butorphanol Tartrate Other - See Medium 06/12/2016 tachycardia comments Tramadol Unknown - See Medium 06/12/2016 Tachycardia comments Trazodone Other - See 11/11/2016 Hot flashes comments Medications Medication Sig Dispensed Refills Start Date End Date Status docusate 100 mg Take 1 capsule by 30 capsule 0 07/04/2016 Active capsule mouth 2 (two) times daily as needed for Constipation. Insulin [place], Use as directed, 400 Each 1 09/19/2017 Active Disposable, (RELION QID, DX:E11.9 PEN NEEDLES) 32 gauge x 5/32" Ndle Diclofenac Sodium 1 % Take 2-4 grams 100 g 3 03/03/2018 Active gelIndications: three times a day Chronic back pain as needed for greater than 3 months pain duration pyridoxine HCl, Take by mouth. 0 Active vitamin B6, (VITAMIN B-6 ORAL) nitroglycerin Place 1 tablet 1 Bottle 1 04/21/2018 Active (NITROSTAT) 0.4 mg under the tongue sublingual tablet every 5 (five) minutes as needed for Chest pain. magnesium oxide 400 mg Take 1 tablet by 90 tablet 3 04/25/2018 Active magnesium mouth daily. TabIndications: Low magnesium level foLIC acid 1 mg Take 1 tablet by 90 tablet 3 05/27/2018 Active tabletIndications: mouth daily. High plasma homocystine methocarbamol 750 mg Take 750 mg by 0 Active tablet mouth 2 (two) times daily. buprenorphine-naloxone Place 8 mg under 0 Active (SUBOXONE) 8-2 mg the tongue every sublingual film 12 (twelve) hours as needed for Pain (scale 7-10). allopurinol 300 mg Take 1 tablet by 30 tablet 6 07/01/2018 Active tablet mouth daily. clopidogrel (PLAVIX) Take 1 tablet by 90 tablet 3 07/20/2018 Active 75 mg tablet mouth daily. cyanocobalamin Inject 1ml weekly 12 mL 3 10/08/2018 Active (VITAMIN B-12) 1,000 for 3 months, mcg/mL then every other injectionIndications: week for 3 Vitamin B12 deficiency months, then monthly. metOLazone 2.5 mg Once daily PRN 30 tablet 2 10/09/2018 Active tabletIndications: for weight gain > Vitamin B12 deficiency 3 lbs atorvastatin (LIPITOR) Take 1 tablet by 90 tablet 3 10/13/2018 Active 40 mg tablet mouth at bedtime. metformin ER 500 mg 24 Take 1 tablet by 270 tablet 3 10/13/2018 Active hr tabletIndications: mouth 2 (two) Type 2 diabetes times daily. mellitus with cardiac complication furosemide (LASIX) 80 Take 80 mg by 0 Active mg tablet mouth every morning and evening. aMILoride 5 mg Take 1 tablet by 60 tablet 2 11/02/2018 Active tabletIndications: mouth 2 (two) Hypokalemia times daily. warfarin 10 mg tablet Take as directed 60 tablet 3 10/30/2018 Active by [facility] based on INR results. warfarin 7.5 mg tablet Take as directed 90 tablet 3 10/30/2018 Active by [facility] based on INR results. ferrous sulfate (IRON) Take 1 tablet by 270 tablet 3 11/06/2018 Active 325 mg (65 mg iron) mouth 3 (three) tabletIndications: times daily with Iron deficiency anemia meals. due to chronic blood loss desvenlafaxine Take 1 tablet by 30 tablet 1 11/09/2018 Active succinate 50 mg 24 hr mouth daily. tabletIndications: Generalized anxiety disorder, Panic disorder without agoraphobia, Severe episode of recurrent major depressive disorder, without psychotic features KCL 20 mEq Take 3 tablets by 180 tablet 2 11/19/2018 Active tabletIndications: mouth 2 (two) Acute on chronic times daily. diastolic congestive heart failure, Hypopotassemia proMETHazine 25 mg Take 1 tablet by 30 tablet 3 11/25/2018 Active tabletIndications: mouth every 6 Non-intractable (six) hours as vomiting with nausea, needed for Nausea unspecified vomiting and Vomiting type (N/V). Ranolazine 1,000 mg Take 1 tablet by 60 tablet 4 12/09/2018 Active tablet mouth 2 (two) times daily. cholestyramine 4 gram Take 1 Packet by 1 Can 1 12/09/2018 Active powderIndications: mouth 3 (three) Other fatigue times daily with meals. dulaglutide inject 0.75 mg 4 Syringe 3 12/13/2018 Active (TRULICITY) 0.75 under the skin mg/0.5 mL weekly. PnIjIndications: Type 2 diabetes mellitus with cardiac complication pantoprazole 40 mg EC Take 1 tablet by 90 tablet 3 12/18/2018 Active tablet mouth 2 (two) times daily. desvenlafaxine Take 1 tablet by 30 tablet 0 12/25/2018 Active succinate (PRISTIQ) mouth daily. 100 mg 24 hr tabletIndications: Generalized anxiety disorder, Panic disorder without agoraphobia desvenlafaxine Take 2 tablets by 60 tablet 1 12/31/2018 Active succinate (PRISTIQ) mouth daily. 100 mg 24 hr tabletIndications: Severe episode of recurrent major depressive disorder, without psychotic features, Generalized anxiety disorder ARIPiprazole 10 mg Take 1 tablet by 30 tablet 1 12/31/2018 Active tabletIndications: mouth daily. Generalized anxiety disorder, Panic disorder without agoraphobia, Severe episode of recurrent major depressive disorder, without psychotic features testosterone Apply 2 Pumps to 75 g 3 01/05/2019 Active (ANDROGEL) 20.25 area(s) daily. mg/1.25 gram (1.62 %) gel pumpIndications: Low testosterone clonazePAM 1 mg Take 1 pill PO in 120 tablet 1 01/25/2019 Active tabletIndications: the AM, 1 PO in Generalized anxiety the afternoon, 1 disorder, Panic pill PO in the disorder without evening. May take agoraphobia additional 1 pill as needed acute anxiety. Active Problems Problem Noted Date Bradycardia 10/06/2018 Congestive heart failure 08/31/2018 Volume overload 08/31/2018 Anticoagulation management encounter [Z51.81, Z79.01] 08/24/2018 Other pulmonary embolism without acute cor pulmonale, unspecified 08/08/2018 chronicity Status post placement of implantable loop recorder 02/04/2018 Tachycardia 01/06/2018 Angina at rest 01/01/2018 Pulmonary emboli 11/03/2017 Electrolyte abnormality 07/17/2017 Chronic diastolic congestive heart failure 04/25/2017 Other iron deficiency anemia 04/01/2017 Overview: Added automatically from request for surgery [id number] Syncope 04/01/2017 Chest pain, rule out acute myocardial infarction 02/13/2017 Hypokalemia 10/21/2016 (HFpEF) heart failure with preserved ejection fraction 09/29/2016 Anxiety 09/18/2016 Acute on chronic diastolic congestive heart failure 09/17/2016 SCHILLING (dyspnea on exertion) 09/16/2016 Precordial pain 09/16/2016 GREGORIO (obstructive sleep apnea) 09/16/2016 Dyspnea 09/16/2016 Fatigue 08/24/2016 Atypical chest pain 08/23/2016 Nephrolithiasis 07/20/2016 Morbid obesity with body mass index of 40.0-49.9 06/26/2016 Dizziness 06/26/2016 Chest pain 06/12/2016 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 MT (myocardial infarction) 06/12/2016 Type 2 diabetes mellitus without complication 06/12/2016 Essential hypertension 06/12/2016 History of alcohol abuse Overview: Sober for 16 years Resolved Problems Problem Noted Date Resolved Date Chest pain radiating to arm 08/08/2016 08/19/2016 Abdominal pain 07/19/2016 08/19/2016 History of epidural anesthesia 07/04/2016 08/19/2016 Morbid obesity with body mass index of 50 or higher 06/26/2016 08/19/2016 Obesity (BMI 30-39.9) 06/12/2016 08/19/2016 Encounters Date Type Specialty Care Team Description 01/09/2019 Telephone Cardiology Robert Adkins Results MD Namita 01/06/2019 [facility] Radiology Robert Adkins Encounter MD Namita 01/06/2019 [facility] Radiology Robert Adkins Encounter MD Namita 01/05/2019 [facility] Radiology Robert Adkins Encounter MD Namita 01/05/2019 [facility] Radiology Robert Adkins Encounter MD Namita 01/05/2019 Orders Only Doctor Unassigned, [place] 01/03/2019 Refill Endocrinology Ciara Lock Refill Request & Metabolism MD Ritu 01/01/2019 Nurse Visit Anti-coagulation Clinic [facility], Anticoagulation management encounter; MD Osmar Other pulmonary embolism without acute cor pulmonale, unspecified chronicity; Nurse, [facility] 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 Anticoag 12/24/2018 Orders Only Doctor Unassigned, [place] 12/17/2018 Refill Gastroenterology Bibiana, Refill Request MD Ioana 12/14/2018 Refill Internal Medicine Lupe, Refill Request Lilibeth Payne MD 12/11/2018 Refill Endocrinology Ciara Lock Refill Request & Metabolism MD Ritu 12/08/2018 Office Visit Cardiology Robert Adkins Coronary artery MD Namita disease involving little shell tribe coronary artery of little shell tribe heart with angina pectoris (Primary Dx) 12/07/2018 Telephone Internal Medicine [place], Rx Concern/Question Lilibeth Payne MD 12/07/2018 Telephone Cardiology Robert Adkins Assessment MD Namita 12/07/2018 Telephone Internal Medicine [place], Authorization Lilibeth Payne MD (Denial Cholestramine) 12/05/2018 Emergency Emergency Medicine Bryan Jose Abscess (Primary Dx ) - III, PA 12/06/2018 12/04/2018 Emergency Emergency Medicine Bryan Jose Ingrown hair ( Primary Dx); III, PA Cellulitis of groin; Tinea cruris 12/04/2018 Nurse Visit Anti-coagulation Clinic Rick, Anticoagulation management encounter; MD Osmar Other pulmonary embolism without acute cor pulmonale, unspecified chronicity; Nurse, [place] 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 Anticoag 12/04/2018 Orders Only Doctor Unassigned, [place] 12/03/2018 Refill Cardiology Al Valiente Refill Request 12/03/2018 Telephone Internal Medicine [place], Authorization (YULISA Payne MD denial) 12/03/2018 Telephone Internal Medicine [place], Authorization (Claim Lilibeth Payne MD rejected requesting PA) 12/01/2018 Telephone Internal Medicine [place], Authorization Lilibeth Payne MD 11/27/2018 Telephone Internal Medicine [place], Rx Concern/Question Lilibeth Payne MD 11/26/2018 Office Visit Internal Medicine [place], Skin problem (Primary Dx); Lilibeth Payne MD Other constipation; Nail problem; Anxiety; Frequent headaches; Swelling; Type 2 diabetes mellitus without complication, with long-term current use of insulin; Dry skin; Disturbance of skin sensation 11/26/2018 Hospital Cardiac [place], PAF (paroxysmal atrial fibrillation) (Primary Dx); Encounter Electrophysiology MD Ho Bradycardia; Outpt-Simi, Pacemaker reprogramming/check Pacemaker/Icd 11/26/2018 [place] Visit Phlebotomy Robert Adkins Acute on chronic diastolic congestive heart failure; MD Namita Hypopotassemia 2, Adc Lab 11/25/2018 Refill Internal Medicine [place], Refill Request Lilibeth Payne MD 11/19/2018 Office Visit Ophthalmology Yariel Tineo Type 2 diabetes mellitus without complication, without long-term current use of insulin ( Primary Dx); MD Cordell Hypertensive retinopathy of both eyes; Age-related nuclear cataract of both eyes; Dry eyes, bilateral; History of uveitis; Refractive error 11/19/2018 [place] Visit Phlebotomy Robert Adkins Acute on chronic diastolic congestive heart failure; MD Namita Hypopotassemia 2, Adc Lab 11/19/2018 Telephone Cardiology Robert Adkins LAB WORK; Lab MD Namita Results; Medication Dose Change 11/19/2018 Orders Only Doctor Unassigned, [place] 11/13/2018 [place] Visit Clinical Medical Robert Adkins Acute on chronic Laboratory MD Namita diastolic congestive 1, Adc Lab heart failure 11/12/2018 Telephone Cardiology Robert Adkins Notification; Lab MD Namita Results 11/12/2018 Telephone Internal Medicine [place], Results (Results) Lilibeth Payne MD 11/07/2018 Emergency Emergency Medicine Gaurav Wang, Chest pain, DO unspecified type (Primary Dx) 11/06/2018 Nurse Visit [facility]-coagulation Clinic [facility], Anticoagulation management encounter; MD Osmar Other pulmonary embolism without acute cor pulmonale, unspecified chronicity Nurse, [facility] Anticoag 11/05/2018 Refill Ernesto Harden, Refill Request 11/05/2018 Refill Internal Medicine [place], Refill Request Lilibeth Payne MD 11/04/2018 Office Visit Gastroenterology Bib[place], Fatty liver disease, nonalcoholic (Primary Dx); MD Ioana Abnormal liver enzymes 11/04/2018 Telephone Internal Medicine [place], Medical Records (MD Sonal Jha) 10/30/2018 Telephone Anti-coagulation Clinic Nat, Refill Request Harley Enamorado MD 10/30/2018 Refill Cardiology Al Valeinte Refill Request 10/28/2018 Office Visit Pulmonary Disease Atanasov, Obstructive sleep Strahil T apnea of adult (Primary Dx) 10/27/2018 [place] Visit Phlebotomy [place], Essential hypertension, malignant; Lilibeth Payne MD (HFpEF) heart failure with preserved ejection fraction; 2, Adc Lab Hypokalemia 10/27/2018 Office Visit Cardiology Al Valiente, Bradycardia (Primary Dx); Pacemaker; 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; Type 2 diabetes mellitus without complication, with long-term current use of insulin; Morbid obesity with body mass index of 40.0-49.9; (HFpEF) heart failure with preserved ejection fraction; GREGORIO on CPAP 10/27/2018 Telephone Cardiology Robert Adkins Notification MD Namita 10/26/2018 Telephone Cardiology Robert Adkins Blood Pressure MD Namita from Last 3 Months Immunizations Name Administration Dates Next Due Td 06/26/2017, 03/19/2015 Family History Medical History Relation Name Comments Asthma Father CHF (congestive heart failure) Father COPD (chronic obstructive pulmonary Father disease) High cholesterol Father Hypertension Father Leukemia Father Leukemia Maternal Uncle High cholesterol Mother Hypertension Mother Cancer Paternal Grandmother unsure which kind Relation Name Status Comments Father Maternal Uncle Mother Paternal Grandmother Social History Tobacco Use Types Packs/Day Years Used Date Former Smoker Cigarettes 30 Quit: 06/26/2014 Smokeless Tobacco: Never Used Tobacco Cessation: Counseling Given: No Comments: quit in 2013 Alcohol Use Drinks/Week oz/Week Comments No 0 Standard drinks or equivalent 0.0 Sex Assigned at Date Recorded Not on file Job Start Date Occupation Industry Not on file Not on file Not on file Travel History Travel Start Travel End No recent travel history available. Last Filed Vital Signs Vital Sign Reading Time Taken Comments Blood Pressure 117/83 12/31/2018 10:39 AM CDT Pulse 93 12/31/2018 10:39 AM CDT Temperature 37.2 C (98.9 F) 12/05/2018 10:38 PM CDT Respiratory Rate 18 12/31/2018 10:39 AM CDT Oxygen Saturation 95% 12/08/2018 1:21 PM CDT Inhaled Oxygen Concentration - - Weight 130.6 kg (288 lb) 12/31/2018 10:39 AM CDT Height 177.8 cm (5' 10") 12/08/2018 1:21 PM CDT Body Mass Index 41.32 12/08/2018 1:21 PM CDT Plan of Treatment Date Type Specialty Care Team Description 01/26/2019 Office Visit Internal Medicine Lilibeth Andrade MD [address] [place] [address] Dr Lewis [address] [place] [address] [phone] 01/29/2019 Nurse Visit Anti-coagulation Clinic Nurse, Vtc Anticoag 02/09/2019 Office Visit Cardiology Robert Adkins MD [id number] [place] [address] [phone] 02/23/2019 Office Visit Internal Medicine Lilibeth Andrade MD [address] [place] [address] Dr Lewis [address] [place] [address] [phone] 02/24/2019 Office Visit Endocrinology Diabetes & JonesZhen MD [address] [address] [phone] 03/24/2019 Office Visit Gastroenterology Ioana Mccarty MD [address] [place] [address] [phone] 04/01/2019 Office Visit Internal Medicine Lilibeth Andrade MD [address] [place] [address] Dr Lewis [address] [place] [address] [phone] 05/04/2019 Office Visit Cardiology Al Valiente MD [address] [place] [address] [phone] 05/13/2019 Office Visit Internal Medicine Lilibeth Andrade MD [address] [place] [address] Dr Lewis [address] [place] [address] [phone] 05/27/2019 Appointment Cardiac Electrophysiology Outpt-Simi, Pacemaker/Icd 06/08/2019 Office Visit Internal Medicine Lilibeth Andrade MD [address] [place] [address] Dr Lewis [address] [place] [address] [phone] 10/27/2019 Office Visit Pulmonary Disease Max Aguiar [address] [place] [address] Dr Lewis [address] [place] [address] [phone] 12/08/2019 Office Visit Ophthalmology Yariel Tineo MD [address] [place] [address] Health Maintenance Due Date Last Done Comments PNEUMOCOCCAL 0-64 YEARS 1976 COMBINED SERIES (1 of 1 - PPSV23) URINE MICROALBUMIN 01/19/2019 01/19/2018, 08/20/2016 HgA1C 01/25/2019 07/28/2018, 03/30/2018, 01/11/2018, Additional history exists INFLUENZA VACCINE 02/21/2019 08/19/2016 (Declined) LDL-C 07/28/2019 07/28/2018, 01/11/2018, 12/31/2017, Additional history exists FOOT EXAM 09/23/2019 09/22/2018, 09/22/2018, 04/22/2018, Additional history exists EYE EXAM 11/20/2019 11/19/2018, 11/13/2017 CREATININE (SERUM) 11/27/2019 11/26/2018, 11/19/2018, 11/13/2018, Additional history exists DTaP,Tdap,and Td Vaccines 06/26/2027 06/26/2017, 03/19/2015 Postponed from (1 - Tdap) 06/27/2017 (Not Indicated) Implants Implanted Type Area Canvas Shrinker Device Shelf Model / Identifier Expiration Serial / Date Lot Prolene Mesh MESH Right: Ethicon 12/20/2020 PMSK / Implanted: Qty: 1 on 07/04/2016 by Alfonso Martinez MD at [facility] [employer] PMSK / [id number] Stent-06/24/2016 Implanted: 06/24/2016 (Quantity not on file) Procedures Procedure Name Priority Date/Time Associated Comments Diagnosis NM MYOCARDIUM PERFUSION Routine 01/06/2019 11:16 Coronary artery Results for this STRESS AND REST AM CDT disease involving procedure are in little shell tribe coronary the results artery of little shell tribe section. heart with angina pectoris CONSENT/REFUSAL FOR Routine 01/05/2019 9:12 DIAGNOSIS AND TREATMENT AM CDT ASSIGNMENT OF BENEFITS Routine 01/05/2019 9:11 AM CDT HEART STATION Routine 01/05/2019 12:01 PHARMACOLOGIC WORKSHEET AM CDT (NUCLEAR EKG) POCT PT/INR(COAGUCHEK) Routine 01/01/2019 Other pulmonary Results for this embolism without procedure are in acute cor the results pulmonale, section. unspecified chronicity EXTERNAL PROVIDER Routine 12/24/2018 12:01 RECORDS AM CDT EMERGENCY SERVICES Routine 12/05/2018 12:01 AGREEMENTS AND AM CDT AUTHORIZATIONS NOTICE OF PRIVACY Routine 12/04/2018 6:47 PRACTICES PM CDT CONSENT/REFUSAL FOR Routine 12/04/2018 6:46 DIAGNOSIS AND TREATMENT PM CDT EMERGENCY SERVICES Routine 12/04/2018 12:01 AGREEMENTS AND AM CDT AUTHORIZATIONS POCT PT/INR(COAGUCHEK) Routine 12/04/2018 Other pulmonary Results for this embolism without procedure are in acute cor the results pulmonale, section. unspecified chronicity EXTERNAL PROVIDER Routine 11/29/2018 12:01 RECORDS AM CDT PACEMAKER DEVICE CHECK Routine 11/26/2018 11:32 AM CDT BASIC METABOLIC PANEL Routine 11/26/2018 9:54 Acute on chronic Results for this (NA, K, CL, CO2, AM CDT diastolic procedure are in GLUCOSE, BUN, congestive heart the results CREATININE, CA) failure section. Hypopotassemia AGREEMENTS Routine 11/26/2018 12:01 AUTHORIZATIONS AND AM CDT IRREVOCABLE ASSIGNMENTS (FORM 2001) [facility] PATIENT FINANCIAL Routine 11/19/2018 12:32 POLICY PM CDT NO SHOW OR MISSED Routine 11/19/2018 12:32 APPOINTMENT POLICY PM CDT ACKNOWLEDGEMENT BASIC METABOLIC PANEL Routine 11/19/2018 11:09 Acute on chronic Results for this (NA, K, CL, CO2, AM CDT diastolic procedure are in GLUCOSE, BUN, congestive heart the results CREATININE, CA) failure section. Hypopotassemia BASIC METABOLIC PANEL Routine 11/13/2018 8:31 Acute on chronic Results for this (NA, K, CL, CO2, AM CDT diastolic procedure are in GLUCOSE, BUN, congestive heart the results CREATININE, CA) failure section. CONSENT/REFUSAL FOR Routine 11/13/2018 8:21 DIAGNOSIS AND TREATMENT AM CDT ASSIGNMENT OF BENEFITS Routine 11/13/2018 8:21 AM CDT TROPONIN I STAT 11/07/2018 5:18 Chest pain, Results for this AM CDT unspecified type procedure are in the results section. XR CHEST 1 VW STAT 11/07/2018 3:55 Chest pain, Results for this AM CDT unspecified type procedure are in the results section. EKG-12 LEAD Routine 11/07/2018 3:36 AM CDT N-TERMINAL PRO-BNP STAT Add-On 11/07/2018 3:36 Chest pain, Results for this AM CDT unspecified type procedure are in the results section. CBC WITH DIFFERENTIAL STAT 11/07/2018 3:36 Chest pain, Results for this AM CDT unspecified type procedure are in the results section. CBC WITH DIFF Routine 11/07/2018 3:36 Chest pain, Results for this AM CDT unspecified type procedure are in the results section. LIPASE STAT 11/07/2018 3:36 Chest pain, Results for this AM CDT unspecified type procedure are in the results section. COMP. METABOLIC PANEL STAT 11/07/2018 3:36 Chest pain, Results for this ([id number]) AM CDT unspecified type procedure are in the results section. PROTHROMBIN TIME / INR STAT 11/07/2018 3:36 Chest pain, Results for this AM CDT unspecified type procedure are in the results section. ACTIVATED PARTIAL STAT 11/07/2018 3:36 Chest pain, Results for this THRMPLAS [place] AM CDT unspecified type procedure are in the results section. TROPONIN I STAT 11/07/2018 3:36 Chest pain, Results for this AM CDT unspecified type procedure are in the results section. EKG-12 LEAD STAT 11/07/2018 3:34 AM CDT CONSENT/REFUSAL FOR Routine 11/07/2018 3:28 DIAGNOSIS AND TREATMENT AM CDT EMERGENCY SERVICES Routine 11/07/2018 12:01 AGREEMENTS AND AM CDT AUTHORIZATIONS POCT PT/INR(COAGUCHEK) Routine 11/06/2018 Other pulmonary Results for this embolism without procedure are in acute cor the results pulmonale, section. unspecified chronicity DME/SUPPLY Routine 10/28/2018 12:01 JUSTIFICATION AM CDT BASIC METABOLIC PANEL Routine 10/27/2018 9:05 (HFpEF) heart Results for this (NA, K, CL, CO2, AM CDT failure with procedure are in GLUCOSE, BUN, preserved ejection the results CREATININE, CA) fraction section. Hypokalemia AGREEMENTS Routine 10/27/2018 12:01 AUTHORIZATIONS AND AM CDT IRREVOCABLE ASSIGNMENTS (FORM 2001) from Last 3 Months Results NM MYOCARDIUM PERFUSION STRESS AND REST (01/06/2019 11:16 AM CDT) Specimen Impressions Performed At PACS/VR/DOSE Left ventricular inferior wall has a moderate and severe deficit that is fixed, appears a scar from prior myocardial infarct. There is no reversible defect to suspect ischemia. Normal left ventricular function. Narrative Performed At * * * * * * * * ORIGINAL REPORT * * * * * * * * PACS/VR/DOSE MYOCARDIAL PERFUSION EXAM- STRESS REST 2 DAY History: 48-year-old male with chest pain, chronic low to moderate probability for CAD Procedure: Myocardial perfusion exam was gathered with a two-day protocol. The patient received a 0.4 mg Lexiscan infusion followed by intravenous injection of 30.9 mCi of technetium 99m Myoview. A gated SPECT scan was obtained. The next day patient received 31.0 mCi of technetium 99m Myoview. A gated SPECT was obtained. Comparison: None. Findings: Pre Stress Test vitals are: BP?110/61?HR 78?Resp 17?O2 sat 93 ? Injection vitals are: BP?166/73?HR 88?Resp 17?O2 sat 95 ? Recovery vitals are: BP?138/63?HR 89?Resp 15?O2 sat 99 The myocardial perfusion exam after pharmacologic stress test shows an inferior wall deficit, moderate in size and severe. This deficit is fixed and suggest a scar, prior myocardial infarct. There is no reversible defect to suspect ischemia. The end-diastolic volume is at rest 67mL and after stress 61 mL. TheLVEF at rest is 60% and after stress 74%. The left ventricular wall motion is normal Procedure Note Ut, Radiant Results Inft User - 01/10/2019 11:34 PM CDT * * * * * * * * ORIGINAL REPORT * * * * * * * * MYOCARDIAL PERFUSION EXAM - STRESS REST 2 DAY History: 48-year-old male with chest pain, chronic low to moderate probability for CAD Procedure: Myocardial perfusion exam was gathered with a two-day protocol. The patient received a 0.4 mg Lexiscan infusion followed by intravenous injection of 30.9 mCi of technetium 99m Myoview. A gated SPECT scan was obtained. The next day patient received 31.0 mCi of technetium 99m Myoview. A gated SPECT was obtained. Comparison: None. Findings: Pre Stress Test vitals are: BP?110/61?HR 78?Resp 17?O2 sat 93 ? Injection vitals are: BP?166/73?HR 88?Resp 17?O2 sat 95 ? Recovery vitals are: BP?138/63?HR 89?Resp 15?O2 sat 99 The myocardial perfusion exam after pharmacologic stress test shows an inferior wall deficit, moderate in size and severe. This deficit is fixed and suggest a scar, prior myocardial infarct. There is no reversible defect to suspect ischemia. The end-diastolic volume is at rest 67mL and after stress 61 mL. The LVEF at rest is 60% and after stress 74%. 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 There is no reversible defect to suspect ischemia. Normal left ventricular function. Performing Organization [facility] Phone [facility] PACS/VR/DOSE CONSENT/REFUSAL FOR DIAGNOSIS AND TREATMENT (01/05/2019 9:12 AM CDT)Only the most recent of4 resultswithin the time period is included. Specimen Performing [facility] Phone Number [facility] ASSIGNMENT OF BENEFITS (01/05/2019 9:11 AM CDT)Only the most recent of2 resultswithin the time period is included. Specimen Performing Organization [facility] Number [facility] HEART STATION PHARMACOLOGIC WORKSHEET (NUCLEAR EKG) (01/05/2019 12:01 AM CDT) Specimen Performing [facility] POCT PT/INR(COAGUCHEK) (01/01/2019)Only the most recent of3 resultswithin the time period is included. POCT PT/INR 2.9 (A) 0.8 - 1.4 INR POCT PT/SEC 34.9 SEC Specimen Blood - CAPILLARY EXTERNAL PROVIDER RECORDS (12/24/2018 12:01 AM CDT)Only the most recent of2 resultswithin the time period is included. Specimen Performing [facility] Number [facility] EMERGENCY SERVICES AGREEMENTS AND AUTHORIZATIONS (12/05/2018 12:01 AM CDT)Only the most recent of3 resultswithin the time period is included. Specimen Performing [facility] Number [facility] NOTICE OF PRIVACY PRACTICES (12/04/2018 6:47 PM CDT) Specimen Performing [facility] Number [facility] PACEMAKER DEVICE CHECK (11/26/2018 11:32 AM CDT) Specimen Performing [facility] BASIC METABOLIC PANEL ([id number])(NA, K, CL, CO2, GLUCOSE, BUN, CREATININE, CA) (11/2018 9:54 AM CDT)Only the most recent of4 resultswithin the time period is included. NA 140 135 - 145 [facility] mmol/L [facility] LABORAT[facility] K 3.9 3.5 - 5.0 [facility] mmol/L HOSPITAL LABORATORY CL 101 98 - 108 mmol/L [facility] CO2 TOTAL 28 23 - 31 mmol/L [facility] AGAP 11 2 - 16 [facility] BUN 15 7 - 23 mg/dL [facility] GLUCOSE 119 (H) 70 - 110 mg/dL [facility] CREATININE 1.00 0.60 - 1.25 [facility] mg/dL [facility] CALCIUM 9.5 8.6 - 10.6 [facility] mg/dL [facility] eGFR Calculation 79.4 mL/min/1.73m2 [facility] (Non[facility] LABORATORY Colombian) eGFR Calculation 96.3 mL/min/1.73m2 [facility] () [facility] Specimen Blood Narrative Performed At Association of Glomerular Filtration Rate (GFR) [facility] LAB[facility] and Staging of Kidney Disease* + + +- + | GFR (mL/min/1.73 m2)| With Kidney Damage|Without Kidney Damage + + +- + |>90| Stage one| Normal + + +- + |60-89|S tage two| Decreased GFR + + +- + |30-59|S tage three| Stage three + + +- + |15-29|S tage four | Stage four + + +- + |<15 (or dialysis)|Stage five | Stage five + + +- + *Each stage assumes the associated GFR level has been in effect for at least three months.Stages 1 to 5, with or without kidney disease, indicate chronic kidney disease. Notes: Determination of stages one and two (with eGFR >59mL/min/1.73 m2) requires estimation of kidney damage for at least three months as defined by structural or functional abnormalities of the kidney, manifested by either: Pathological abnormalities or Markers of kidney damage (including abnormalities in the composition of the blood or urine or abnormalities in imaging tests). Performing Organization Address City/State/Zipcode Phone Number [facility] CLIA: [id number], [address] [place] [address] AGREEMENTS AUTHORIZATIONS AND IRREVOCABLE ASSIGNMENTS (FORM 2000) (11/26/2018 12 :01 AM CDT)Only the most recent of2 resultswithin the time period is included. Specimen Performing Organization Address City/State/Zipcode Phone Number HIM [facility] PATIENT FINANCIAL POLICY (11/19/2018 12:32 PM CDT) Specimen Performing Organization Address City/State/[employer] Phone Number HIM NO SHOW OR MISSED APPOINTMENT POLICY ACKNOWLEDGEMENT (11/19/2018 12:32 PM CDT) Specimen Performing Organization Address City/[facility]/Zipcode Phone Number EDD TROPONIN I (11/07/2018 5:18 AM CDT)Only the most recent of2 resultswithin the time period is included. TROPONIN I 0.003 <=0.034 ng/mL [facility] Specimen Blood - VENOUS Narrative Performed At Equal or Less than 0.034 ng/ml---Normal [facility] Note: Cardiac troponin begins to rise 3-4 hours after the onset of ischemia. Repeat in 4-6 hours if the sample was drawn within 3-4 hours of the onset of the symptom and found normal. Between 0.035 and 0.120 ng/mL--- Borderline. Questionable myocardial injury or necrosis Note: Serial measurement may be necessary to confirm or exclude the diagnosis of myocardial injury or necrosis; Clinical correlation (symptoms, EKGs, imaging studies, and others) required; Repeat in 4-6 hours if clinically indicated. Equal or Higher than 0.121 ng/mL---Abnormal. Myocardial Injury or Necrosis Likely Biotin has been reported to cause a negative bias, interpret results relative to patient's use of biotin. Performing Organization Address [facility]/Zipcode Phone Number [facility] CLIA: [id number], [address] [place] [address] XR CHEST 1 VW (11/07/2018 3:55 AM CDT) Specimen Narrative Performed At * * * * * * * * ORIGINAL REPORT * * * * * * * * PACS/VR/DOSE CHEST 1 VIEW HISTORY: cheat pain COMPARISON: Chest x-ray 10/07/2018 FINDINGS: 1. The lungs are clear. No consolidation, pleural effusion, or pneumothorax is identified. 2. The heart is mildly enlarged, unchanged. 3. No acute osseous abnormality. 4. The left chest pacemaker is in stable position with its right atrial and ventricular leads. Erika Crane MD., have reviewed this study and agree with the above report. Procedure Note [facility], Radiant Results Inft User - 11/07/2018 8:46 AM CDT * * * * * * * * ORIGINAL REPORT * * * * * * * * CHEST 1 VIEW HISTORY: cheat pain COMPARISON: Chest x-ray 10/07/2018 FINDINGS: 1. The lungs are clear. No consolidation, pleural effusion, or pneumothorax is identified. 2. The heart is mildly enlarged, unchanged. 3. No acute osseous abnormality. 4. The left chest pacemaker is in stable position with its right atrial and ventricular leads. I, Kathi Last MD., have reviewed this study and agree with the above report. Performing Organization Address City/[facility]/Zipcode Phone Number PACS/VR/DOSE EKG-12 LEAD (11/07/2018 3:36 AM CDT) Specimen Performing Organization Address [facility]/Zipcode Phone Number HST CBC WITH DIFFERENTIAL (11/07/2018 3:36 AM CDT) WBC 11.79 (H) 4.20 - 10.70 [facility] 10*3/L [facility] RBC 6.10 (H) 4.26 - 5.52 [facility] 10*6/L [facility] HGB 14.6 12.2 - 16.4 [facility] g/dL [facility] HCT 45.4 38.4 - 49.3 % [facility] MCV 74.4 (L) 81.7 - 95.6 fL [facility] MCH 23.9 (L) 26.1 - 32.7 pg [facility] MCHC 32.2 31.2 - 35.0 [facility] g/dL [facility] RDW-SD 43.8 38.5 - 51.6 fL [facility] RDW-CV 17.9 (H) 12.1 - 15.4 % [facility] LAB[facility] PLT 345 (H) 150 - 328 [facility] 10*3/L [facility] MPV 9.4 (L) 9.8 - 13.0 fL [facility] NRBC/100 WBC 0.0 0.0 - 10.0 /100 [facility] WBCs [facility] NRBC x10^3 <0.01 10*3/L [facility] GRAN MAT (NEUT) % 71.8 % [facility] IMM GRAN % 0.70 % [facility] LYMPH % 17.0 % [facility] MONO % 9.0 % [facility] EOS % 1.0 % [facility] BASO % 0.5 % [facility] GRAN MAT x10^3(ANC) 8.47 (H) 1.99 - 6.95 [facility] 10*3/uL [facility] LAB[facility] IMM GRAN x10^3 0.08 (H) 0.00 - 0.06 [facility] 10*3/uL HOSPITAL LABORATORY LYMPH x10^3 2.00 1.09 - 3.23 [facility] 10*3/uL HOSPITAL LABORATORY MONO x10^3 1.06 (H) 0.36 - 1.02 [facility] 10*3/uL HOSPITAL LABORATORY EOS x10^3 0.12 0.06 - 0.53 [facility] 10*3/uL [facility] LAB[facility] BASO x10^3 0.06 0.01 - 0.[address]3/uL [facility] LABOR[facility]ORY Specimen Blood - VENOUS Performing Organization Address City/[facility] Phone Number [facility] CLIA: [id number], [address] [place] [address] N-TERMINAL PRO-BNP (11/07/2018 3:36 AM CDT) NT-proBNP 27 <=125 pg/mL [facility] LAB[facility] Specimen Blood - VENOUS Narrative Performed At [facility] LABORATORY Biotin has been reported to cause a negative bias, interpret results relative to patient's use of biotin. Performing Organization Address City/[facility]/Zipcode Phone Number [facility] CLIA: [id number], [address] [place] [address] [address] aPTT (11/07/2018 3:36 AM CDT) APTT Patient 64 (H) 23 - 38 Seconds [facility] LABORAT[facility] Specimen Blood - VENOUS Narrative Performed At The [facility] patient population mean normal value [facility] for aPTT is 30 seconds. Performing Organization Address City/[facility]/Zipcode Phone Number [facility] CLIA: [id number], [address] [place] [address] [address] PROTHROMBIN TIME / INR (11/07/2018 3:36 AM CDT) PROTIME PATIENT 24.1 (H) 12.0 - 14.7 [facility] LABORATORY INR 2.3Comment: Normal [facility] INR <1.1; Warfarin HOSPITAL Therapeutic range LABORATORY 2.0 to 3.0 or 2.5 to 3.5, depending upon the indications. Specimen Blood - VENOUS Performing Organization Address City/State/Zipcode Phone Number [facility] CLIA: [id number], [address] [place] [address] COMP. METABOLIC PANEL ([id number]) (11/07/2018 3:36 AM CDT) NA 139 135 - 145 [facility] mmol/L [facility] LAB[facility] K 3.2 (L) 3.5 - 5.0 [facility] mmol/L [facility] CL 90 (L) 98 - 108 mmol/L [facility] CO2 TOTAL 38 (H) 23 - 31 mmol/L [facility] AGAP 11 2 - 16 [facility] BUN 29 (H) 7 - 23 mg/dL [facility] GLUCOSE 194 (H) 70 - 110 mg/dL [facility] CREATININE 1.28 (H) 0.60 - 1.25 [facility] mg/dL [facility] LABORATORY TOTAL BILI 0.6 0.1 - 1.1 mg/dL [facility] CALCIUM 10.0 8.6 - 10.6 [facility] mg/dL [facility] LABORAT[facility] T PROTEIN 8.9 (H) 6.3 - 8.2 g/dL [facility] LABOR[facility] ALBUMIN 4.5 3.5 - 5.0 g/dL [facility] LAB[facility] ALK PHOS 141 (H) 34 - 122 U/L [facility] LAB[facility] ALT(SGPT) 20 9 - 51 U/L [facility] AST(SGOT) 29 13 - 40 U/L [facility] LAB[facility] eGFR Calculation 59.7 mL/min/1.73m2 [facility] (Non[facility] LABORATORY Colombian) eGFR Calculation 72.4 mL/min/1.73m2 [facility] () [facility] LABORAT[facility] Specimen Blood - VENOUS Narrative Performed At [facility] LABORATORY Association of Glomerular Filtration Rate (GFR) and Staging of Kidney Disease* + + +- + | GFR (mL/min/1.73 m2)| With Kidney Damage|Without Kidney Damage + + +- + |>90| Stage one| Normal + + +- + |60-89|S tage two| Decreased GFR + + +- + |30-59|S tage three| Stage three + + +- + |15-29|S tage four | Stage four + + +- + |<15 (or dialysis)|Stage five | Stage five + + +- + *Each stage assumes the associated GFR level has been in effect for at least three months.Stages 1 to 5, with or without kidney disease, indicate chronic kidney disease. Notes: Determination of stages one and two (with eGFR >59mL/min/1.73 m2) requires estimation of kidney damage for at least three months as defined by structural or functional abnormalities of the kidney, manifested by either: Pathological abnormalities or Markers of kidney damage (including abnormalities in the composition of the blood or urine or abnormalities in imaging tests). Performing Organization Address City/State/Zipcode Phone Number [facility] CLIA: [id number], [address] [place] [address] LABORATORY [facility] LIPASE, SERUM (11/07/2018 3:36 AM CDT) LIPASE 33 0 - 220 U/L [facility] LABOR[facility] Specimen Blood - VENOUS Performing Organization Address City/State/Zipcode Phone Number [facility] CLIA: [id number], [address] [place] [address] DME/SUPPLY JUSTIFICATION (10/28/2018 12:01 AM CDT) Specimen Performing Organization Address City/State/Zipcode Phone Number [facility] from Last 3 Months Insurance Payer Benefit Plan / Subscriber ID Effective Phone Address Type Group Dates [facility] [id number] 2017-Pre [phone] [address] HMO HEALTH CHOICE HEALTH CHOICE sent [phone] [place] [address] [employer] [id number] 2016-Pre [phone] [facility] sent [phone] [facility] , [address] [place] [address] Advance Directives Name Relationship Healthcare Agent Communication Relationship Keaton Nelson Spouse Primary healthcare agent [email or web address] [email or web address] [email or web address] Sibling [facility] [phone] agent (Mobile)
--- OUTSIDE RECORDS SUMMARY | 2019-05-11 00:40 | XMS REPORT | Summary of Care ---
:1970 Author Organization [facility] Address [address] [place] [address] Care Team Providers Name Role Phone Lilibeth Andrade MD Primary Care Provider Libby Espinoza RN Unavailable Unavailable Al Valiente MD Unavailable Junito Quezada MD Unavailable Karena Anand [employer]ATION PLANT SUPERVISOR Unavailable Unavailable Tito Kirkpatrick Unavailable Reason for Visit Reason Comments Follow-up Ear Pain Sore Throat Encounter Details Date Type Department Care Team Description 01/26/2019 Office Visit [facility] Andrade, Seborrheic dermatitis ( Primary Dx); Pediatric and Adult Lilibeth Payne MD Constipation, unspecified constipation type; Primary Care- [address] [place] [address] Dr Davidson fdc (current) drug therapy; [facility] 103 Iron deficiency anemia due to chronic blood loss; [address] [place] [address] Sore throat; [address] Ear ache; [place], [place] Frequent headaches; [id number] Nausea [phone] Allergies Active Allergy Reactions Severity Noted Date [...] Other - See 11/11/2016 Hot flashes comments documented as of this encounter (statuses as of 01/27/2019) Medications Medication Sig Dispensed Refills Start Date End Date Status docusate 100 mg Take 1 capsule 30 capsule 0 07/04/2016 Active capsule by mouth 2 (two) times daily as needed for Constipation. Insulin [place], Use as 400 Each 1 09/19/2017 Active Disposable, (RELION directed, QID, PEN NEEDLES) 32 DX:E11.9 gauge x 5/32" Ndle Diclofenac Sodium 1 Take 2-4 grams 100 g 3 03/03/2018 Active % gelIndications: three times a Chronic back pain day as needed greater than 3 for pain months duration pyridoxine HCl, Take by mouth. 0 Active vitamin B6, (VITAMIN B-6 ORAL) nitroglycerin Place 1 tablet 1 Bottle 1 04/21/2018 Active (NITROSTAT) 0.4 mg under the sublingual tablet tongue every 5 (five) minutes as needed for Chest pain. magnesium oxide 400 Take 1 tablet 90 tablet 3 04/25/2018 Active mg magnesium by mouth daily. TabIndications: Low magnesium level foLIC acid 1 mg Take 1 tablet 90 tablet 3 05/27/2018 Active tabletIndications: by mouth daily. High plasma homocystine methocarbamol 750 Take 750 mg by 0 Active mg tablet mouth 2 (two) times daily. buprenorphine-nalox Place 8 mg 0 Active one (SUBOXONE) 8-2 under the mg sublingual film tongue every 12 (twelve) hours as needed for Pain (scale 7-10). allopurinol 300 mg Take 1 tablet 30 tablet 6 07/01/2018 Active tablet by mouth daily. clopidogrel Take 1 tablet 90 tablet 3 07/20/2018 Active (PLAVIX) 75 mg by mouth daily. tablet cyanocobalamin Inject 1ml 12 mL 3 10/08/2018 Active (VITAMIN B-12) weekly for 3 1,000 mcg/mL months, then injectionIndication every other s: Vitamin B12 week for 3 deficiency months, then monthly. metOLazone 2.5 mg Once daily PRN 30 tablet 2 10/09/2018 Active tabletIndications: for weight gain Vitamin B12 > 3 lbs deficiency atorvastatin Take 1 tablet 90 tablet 3 10/13/2018 Active (LIPITOR) 40 mg by mouth at tablet bedtime. metformin ER 500 mg Take 1 tablet 270 tablet 3 10/13/2018 Active 24 hr by mouth 2 tabletIndications: (two) times Type 2 diabetes daily. mellitus with cardiac complication furosemide (LASIX) Take 80 mg by 0 Active 80 mg tablet mouth every morning and evening. aMILoride 5 mg Take 1 tablet 60 tablet 2 11/02/2018 Active tabletIndications: by mouth 2 Hypokalemia (two) times daily. warfarin 10 mg Take as 60 tablet 3 10/30/2018 Active tablet directed by [facility] based on INR results. warfarin 7.5 mg Take as 90 tablet 3 10/30/2018 Active tablet directed by [facility] based on INR results. ferrous sulfate Take 1 tablet 270 tablet 3 11/06/2018 Active (IRON) 325 mg (65 by mouth 3 mg iron) (three) times tabletIndications: daily with Iron deficiency meals. anemia due to chronic blood loss desvenlafaxine Take 1 tablet 30 tablet 1 11/09/2018 Active succinate 50 mg 24 by mouth daily. hr tabletIndications: Generalized anxiety disorder, Panic disorder without agoraphobia, Severe episode of recurrent major depressive disorder, without psychotic features KCL 20 mEq Take 3 tablets 180 tablet 2 11/19/2018 Active tabletIndications: by mouth 2 Acute on chronic (two) times diastolic daily. congestive heart failure, Hypopotassemia proMETHazine 25 mg Take 1 tablet 30 tablet 3 11/25/2018 Active tabletIndications: by mouth every Non-intractable 6 (six) hours vomiting with as needed for nausea, unspecified Nausea and vomiting type Vomiting (N/V). Ranolazine 1,000 mg Take 1 tablet 60 tablet 4 12/09/2018 Active tablet by mouth 2 (two) times daily. cholestyramine 4 Take 1 Packet 1 Can 1 12/09/2018 Active gram by mouth 3 powderIndications: (three) times Other fatigue daily with meals. dulaglutide inject 0.75 mg 4 Syringe 3 12/13/2018 Active (TRULICITY) 0.75 under the skin mg/0.5 mL weekly. PnIjIndications: Type 2 diabetes mellitus with cardiac complication pantoprazole 40 mg Take 1 tablet 90 tablet 3 12/18/2018 Active EC tablet by mouth 2 (two) times daily. desvenlafaxine Take 2 tablets 60 tablet 1 12/31/2018 Active succinate (PRISTIQ) by mouth daily. 100 mg 24 hr tabletIndications: Severe episode of recurrent major depressive disorder, without psychotic features, Generalized anxiety disorder ARIPiprazole 10 mg Take 1 tablet 30 tablet 1 12/31/2018 Active tabletIndications: by mouth daily. Generalized anxiety disorder, Panic disorder without agoraphobia, Severe episode of recurrent major depressive disorder, without psychotic features testosterone Apply 2 Pumps 75 g 3 01/05/2019 Active (ANDROGEL) 20.25 to area(s) mg/1.25 gram (1.62 daily. %) gel pumpIndications: Low testosterone clonazePAM 1 mg Take 1 pill PO 120 tablet 1 01/25/2019 Active tabletIndications: in the AM, 1 PO Generalized anxiety in the disorder, Panic afternoon, 1 disorder without pill PO in the agoraphobia evening. May take additional 1 pill as needed acute anxiety. Cholecalciferol, Take by mouth. 0 Active Vitamin D3, (VITAMIN D3) 2,000 unit tablet hydrocortisone 2.5 Apply to 30 g 3 01/26/2019 Active % creamIndications: affected Seborrheic area(s) 2 (two) dermatitis times daily. polyethylene glycol Take 17 g by 238 g 3 01/26/2019 Active (MIRALAX) 17 mouth daily. gram/dose powderIndications: Constipation, unspecified constipation type desvenlafaxine Take 1 tablet 30 tablet 0 12/25/2018 Discontinued succinate (PRISTIQ) by mouth daily. 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 shoshone[place]bannock heart 06/12 with angina pectoris [place] (myocardial infarction) 06/12/2016 Type 2 diabetes mellitus without complication 06/12/2016 Essential hypertension 06/12/2016 History of alcohol abuse Overview: Sober for 16 years documented as of this encounter (statuses as of 01/27/2019) Resolved Problems Problem Noted Date Resolved Date Chest pain radiating to arm 08/08/2016 08/19/2016 Abdominal pain 07/19/2016 08/19/2016 History of epidural anesthesia 07/04/2016 08/19/2016 Morbid obesity with body mass index of 50 or higher 06/26/2016 08/19/2016 Obesity (BMI 30-39.9) 06/12/2016 08/19/2016 documented as of this encounter (statuses as of 01/27/2019) Immunizations Name Administration Dates Next Due Td 06/26/2017, 03/19/2015 documented as of this encounter Social History Tobacco Use Types Packs/Day Years Used Date Former Smoker Cigarettes 1 30 Quit: 06/26/2014 Smokeless Tobacco: Never Used Comments: quit in 2013 Alcohol Use Drinks/Week oz/Week Comments No 0 Standard drinks or equivalent 0.0 Sex Assigned at Date Recorded Not on file Job Start Date Occupation Industry Not on file Not on file Not on file Travel History Travel Start Travel End No recent travel history available. documented as of this encounter Last Filed Vital Signs Vital Sign Reading Time Taken Comments Blood Pressure 115/77 01/26/2019 3:02 PM CDT Pulse 88 01/26/2019 3:02 PM CDT Temperature 36.9 C (98.5 F) 01/26/2019 3:02 PM CDT Respiratory Rate 20 01/26/2019 3:02 PM CDT Oxygen Saturation 93% 01/26/2019 3:02 PM CDT Inhaled Oxygen Concentration - - Weight 123 kg (271 lb 1.6 oz) 01/26/2019 3:02 PM CDT Height - - Body Mass Index 38.9 12/08/2018 1:21 PM CDT documented in this encounter Patient Instructions Patient InstructionsShelia Pulliam - 01/26/2019 3:00 PM CDTLook into the brand "life flow" You can read [employer] metabolic cardiology by Doctor Harry Yoon Start Taurine up to 300mg 3x times a day to help with anxiety. Start with a low dose and work your way up. This can also help with sleep. documented in this encounter Progress Notes Lilibeth Andrade MD - 01/26/2019 3:00 PM CDT DOS: 01/26/2019 CC: Follow up of chronic conditions HPI: John Paul Nelson is a 48 year old male with history including has a past medical history of AAA (abdominal aortic aneurysm), Anxiety, CHF ( congestive heart failure), Degenerative disc disease, lumbar, Diabetes, Hernia, History of alcohol abuse, History of pernicious anemia, HLD (hyperlipidemia), Hypertension, Kidney stones, Lung nodule, [place] (myocardial infarction), Microcytic anemia, Right bundle branch block, and Uveitis. who is being seen today for follow up of chronic conditions. Patient complains of a right earache with a sore throat. He states this started last night. Patient states since last visit psychiatry increased his Pristiq. He states since increasing his medication he's doing better. Patient gets red spots on his face that comes and goes along with constant dry skin. He hasn't triedhydrocortisone. Patient states he hasn't started cholestyramine because he's been constipated. He was worried the cholestyramine would make things worse. He states he uses mineral oil (about 5ml worth) and docusate with no relief. Patient partner states when he sleeps he's starting move around and talk a lot. She states this onlyhappens when he's sleeping. Patient states his sugars are good depending on what he eats. He states he does pretty good with diet and watches what he eats. Patient complains of nausea. He states he has nausea a lot and he's unsure why. Patient complains of headaches. He does not check BPs or sugars when having headaches. Medications reviewed in EPIC, past medical history and social history and allergies reviewed. Review of Systems HENT: Positive for ear pain and sore throat. Gastrointestinal: Positive for constipation and nausea. Neurological: Positive for headaches. PE: Blood pressure 115/77, pulse 88, temperature 36.9 C (98.5 F), temperature source Oral, resp. rate 20, weight 271 lb 1.6 oz (123 kg), SpO2 93 %. Physical Exam Constitutional: He is oriented to person, place, and time. He appears well- developed and well-nourished. No distress. HENT: Head: Normocephalic and atraumatic. Right Ear: External ear normal. Left Ear: External ear normal. Nose: Nose normal. No tracheal deviation. Both ears look normal. Eyes: Right eye exhibits no discharge. Left eye exhibits no discharge. No scleral icterus. Left and right eyelids normal. Neurological: He is alert and oriented to person, place, and time. No tremors. Normal gait. Skin: Skin is warm and dry. He is not diaphoretic. Psychiatric: He has a normal mood and affect. His behavior is normal. Pleasant. Vitals reviewed. Results: No new labs Education & Visit Time: this visit involved counseling and coordination of care that comprised more than 50% of the visit time. I spent at least 40 minutes total time with the patient. Of that time, at least 1 minutes was spent on exam, and at least 39 minutes was spent obtaining history and counseling the patient regarding risks and benefits of treatment, treatment options and prevention. A/P: John Paul Nelson is a 48 year old male with history including has a past medical history of AAA (abdominal aortic aneurysm), Anxiety, CHF (congestive heart failure), Degenerative disc disease, lumbar, Diabetes, Hernia, History of alcohol abuse, History of pernicious anemia, HLD (hyperlipidemia), Hypertension , Kidney stones, Lung nodule, [place] (myocardial infarction), Microcytic anemia, Right bundle branch block, and Uveitis. who is being seen today for chronic medical conditions. Seborrheic dermatitis (primary encounter diagnosis) Comment: on his face, comes in patches. Can be related to vitamin deficiency. Limited with vegetableintake as he is on warfarin (had blood clots on other anticoagulants). Plan: START hydrocortisone 2.5 % cream Constipation, unspecified constipation type Comment: still having issues. Will add miralax. Plan: START polyethylene glycol (MIRALAX) 17 gram/dose powder Other fdc (current) drug therapy Comment: patient has been on fdc medications for chronic conditions. Will check levels to improve. Plan: VITAMIN B1 (THIAMINE), WHOLE BLOOD, VITAMIN B6, PLASMA, VITAMIN B12, LEVEL, VITAMIN D, 25-OH, FOLATE, HOMOCYSTEINE, HIGH SENSITIVITY CRP, ZINC, SERUM Iron deficiency anemia due to chronic blood loss Comment: will check labs. Plan: IRON, TOTAL IRON BINDING CAPACITY, FERRITIN SERUM Sore throat, Ear ache Comment: started yesterday. Exam ok. Does not use cpap when sick. Recommended to clean it regularly and use even when sick. He will do so. Plan: discussed with patient to increased vitamin C and look into essential oils to boost immune system. Frequent headaches Comment: ongoing. He hasn't tried checking BPs or sugars. At night will put lavendar on cpap filter to see if that helps his sleep/rest. Plan: discussed with patient to check BP and sugars when having a headache. Nausea Comment: patient complains of nausea. Unsure cause. Did not get to discuss due to discussing other issues. Plan: monitor. Return for Continue with monthly appointments.. Plan of care, desired health behaviors, goals,& medication discussed with patient and educational resources and self management tools provided as appropriate. Patient/family/guardian voices understanding. Patient verbalized understanding & agrees to plan of care. Barriers to care: none Ability to manage care: good Scribe's Attestation I, Shelia Pulliam , am scribing for, and in the presence of, Lilibeth Andrade MD who performed the services described here-in. Shelia Pulliam, January 26, 2019, 3:06 PM Physician's Attestation I, Lilibeth Andrade MD, personally performed the services described in this documentation , asscribed by, Shelia Pulliam in my presence and it is both accurate and complete. Lilibeth Andrade MD January 27, 2019, 7:40 PM documented in this encounter Plan of Treatment Date Type Specialty Care Team Description 01/29/2019 Nurse Visit [facility] Clinic Nurse, Vtc Anticoag 02/09/2019 Office Visit Cardiology Robert Adkins MD [id number] [place], [place] [id number] 02/23/2019 Office Visit Internal Medicine Lilibeth Andrade MD [address] [place] [address] Dr Lewis [address] [place] [phone] 02/24/2019 Office Visit Endocrinology Diabetes & JonesZhen MD [address] [id number] 03/24/2019 Office Visit Gastroenterology Ioana Mccarty MD [address] [place] [address] [phone] 04/01/2019 Office Visit Internal Medicine Lilibeth Andrade MD [address] [place] [address] Dr Lewis [address] [place] [address] [phone] 05/04/2019 Office Visit Cardiology Al Valiente MD [address] [place] [address] [address] [place], [place] [address] 05/13/2019 Office Visit Internal Medicine Lilibeth Andrade MD [address] [place] [address] Dr Lewis [address] [place] [address] [phone] 05/27/2019 Appointment Cardiac Electrophysiology Outpt-Simi, Pacemaker/Icd 06/08/2019 Office Visit Internal Medicine Lilibeth Andrade MD [address] [place] [address] Dr Lewis [address] [place], [place] [phone] 10/27/2019 Office Visit Pulmonary Disease [facility] Goodson [address] [place] [address] Dr Lewis [address] [place], [place] [id number] 12/08/2019 Office Visit Ophthalmology Yariel Tineo MD [address] [place] [address] Name Type Priority Associated Diagnoses Order Schedule VITAMIN B1 (THIAMINE), LAB Routine Other intermediate card tender Ordered: 01/26/2019 WHOLE BLOOD (current) drug therapy VITAMIN B6, PLASMA LAB Routine Other intermediate card tender Ordered: 01/26/2019 (current) drug therapy VITAMIN B12, LEVEL LAB Routine Other intermediate card tender Ordered: 01/26/2019 (current) drug therapy VITAMIN D, 25-OH LAB Routine Other intermediate card tender Ordered: 01/26/2019 (current) drug therapy FOLATE LAB Routine Other fdc Ordered: 01/26/2019 (current) drug therapy HOMOCYSTEINE LAB Routine Other fdc Ordered: 01/26/2019 (current) drug therapy HIGH SENSITIVITY CRP LAB Routine Other intermediate card tender Ordered: 01/26/2019 (current) drug therapy ZINC, SERUM LAB Routine Other intermediate card tender Ordered: 01/26/2019 (current) drug therapy IRON LAB Routine Iron deficiency anemia Ordered: 01/26/2019 due to chronic blood loss TOTAL IRON BINDING CAPACITY LAB Routine Iron deficiency anemia Ordered: 11/2018 due to chronic blood loss FERRITIN SERUM LAB Routine Iron deficiency anemia Ordered: 01/26/2019 due to chronic blood loss Health Maintenance Due Date Last Done Comments [...] from (1 - Tdap) 06/27/2017 (Not Indicated) documented as of this encounter Implants Implanted Type Area Application Technician Device Shelf Model / Identifier Expiration Serial / Date Lot Prolene Mesh MESH Right: Ethicon 12/20/2020 PMSK / Implanted: Qty: 1 on 07/04/2016 by Alfonso Martinez MD at [facility] [employer] PMSK / [id number] Stent-06/24/2016 Implanted: 06/24/2016 (Quantity not on file) documented as of this encounter Results Not on filedocumented in this encounter Visit Diagnoses Diagnosis Seborrheic dermatitis - Primary Seborrheic dermatitis, unspecified Constipation, unspecified constipation type Other fdc (current) drug therapy Iron deficiency anemia due to chronic blood loss Iron deficiency anemia secondary to blood loss (chronic) Sore throat Acute pharyngitis Ear ache Frequent headaches Nausea Nausea alone documented in this encounter Insurance Payer Benefit Plan / Subscriber ID Effective Phone Address Type Group Dates [facility] [id number] 2017-Lux [phone] [address] [employer] [phone] [place] [address] (Home) [place] [address] documented as of this encounter Advance Directives Name Relationship Healthcare Agent Communication Relationship Keaton Nleson Spouse Primary healthcare agent Elisabeth Soliz Sibling First alternate healthcare [phone] agent (Mobile)
--- OUTSIDE RECORDS SUMMARY | 2019-05-11 00:41 | XMS REPORT | Summary of Care ---
:1970 Author Organization [facility] Address [address] [place] [address] Care Team Providers Name Role Phone Lilibeth Andrade MD Primary Care Provider Libby Espinoza RN Unavailable Unavailable Al Valiente MD Unavailable Junito Quezada MD Unavailable Karena Anand ARCHITECTURAL REPRESENTATIVE Unavailable Unavailable Tito Kirkpatrick Unavailable Reason for Visit Reason Comments Follow-up Ear Pain Sore Throat Encounter Details Date Type Department Care Team Description 01/26/2019 Office Visit [facility] Andrade, Seborrheic dermatitis ( Primary Dx); Pediatric and Adult Lilibeth Payne MD Constipation, unspecified constipation type; Primary Care- [address] [place] [address] Dr [facility]; [facility] Iron deficiency anemia due to chronic blood loss; [address] [place] [address] Sore throat; [address] Ear ache; [place], [place] Frequent headaches; [id number] Nausea [phone] Allergies Active Allergy Reactions Severity Noted Date [...] times daily as needed for Constipation. Insulin [place], Use as 400 Each 1 09/19/2017 Active [...] Overview: Added automatically from request for surgery [id number] Syncope 04/01/2017 Chest pain, rule out acute [...] Chest pain 06/12/2016 Coronary artery disease involving [place] coronary artery of [place] heart 06/12 with angina pectoris IA (myocardial infarction) 06/12/2016 Type 2 diabetes mellitus [...] the brand "life flow" You can read [employer] metabolic cardiology by Doctor Harry Yoon Start [...] HLD (hyperlipidemia), Hypertension, Kidney stones, Lung nodule, IA (myocardial infarction), Microcytic anemia, Right bundle branch [...] (hyperlipidemia), Hypertension , Kidney stones, Lung nodule, IA (myocardial infarction), Microcytic anemia, Right bundle branch [...] polyethylene glycol (MIRALAX) 17 gram/dose powder Other [facility] drug therapy Comment: patient has been on [facility] medications for chronic conditions. Will check levels [...] Cardiology Robert Adkins MD [id number] [place], [place] [id number] 02/23/2019 Office Visit Internal Medicine Lilibeth Andrade MD [address] [place] [address] Dr Lewis [address] [place] [address] [phone] 02/24/2019 Office Visit Endocrinology Diabetes & JonesZhen MD [address] [id number] 03/24/2019 Office Visit Gastroenterology Ioana Mccarty MD [address] [place] [address] [phone] 04/01/2019 Office Visit Internal Medicine Lilibeth Andrade MD [address] [place] [address] Dr Lewis [address] [place] [address] [phone] 05/04/2019 Office Visit Cardiology Al Valiente MD [address] [place] [address] [address] [place], [place] [id number] 05/13/2019 Office Visit Internal Medicine Lilibeth Andrade MD [address] [place] [address] Dr Lewis [address] [place] [address] [phone] 05/27/2019 Appointment Cardiac Electrophysiology Outpt-Simi, Pacemaker/Icd 06/08/2019 Office Visit Internal Medicine Lilibeth Andrade MD [address] [place] [address] Dr Lewis [address] [place], [place] [phone] 10/27/2019 Office Visit Pulmonary Disease [facility] Goodson [address] [place] [address] Dr Lewis [address] [place], [place] [phone] 12/08/2019 Office Visit Ophthalmology Yariel Tineo MD [address] [place] [address] Name Type Priority Associated Diagnoses Order Schedule VITAMIN B1 (THIAMINE), LAB Routine Other extermination supervisor Ordered: 01/26/2019 WHOLE BLOOD (current) drug therapy VITAMIN B6, PLASMA LAB Routine Other extermination supervisor Ordered: 01/26/2019 (current) drug therapy VITAMIN B12, LEVEL LAB Routine Other extermination supervisor Ordered: 01/26/2019 (current) drug therapy VITAMIN D, 25-OH LAB Routine Other extermination supervisor Ordered: 01/26/2019 (current) drug therapy FOLATE LAB Routine Other [facility] Ordered: 01/26/2019 (current) drug therapy HOMOCYSTEINE LAB Routine Other [facility] Ordered: 01/26/2019 (current) drug therapy HIGH SENSITIVITY CRP LAB Routine Other extermination supervisor Ordered: 01/26/2019 (current) drug therapy ZINC, SERUM LAB Routine Other extermination supervisor Ordered: 01/26/2019 (current) drug therapy IRON LAB [...] of this encounter Implants Implanted Type Area Water Proofer Device Shelf Model / Identifier Expiration Serial / Date Lot Prolene Mesh MESH Right: Ethicon 12/20/2020 PMSK / Implanted: Qty: 1 on 07/04/2016 by Alfonso Martinez MD at [facility] [employer] PMSK / [id number] Stent-06/24/2016 Implanted: 06/24/2016 (Quantity not on file) documented as of this encounter Results Not on filedocumented in this encounter Visit Diagnoses Diagnosis Seborrheic dermatitis - Primary Seborrheic dermatitis, unspecified Constipation, unspecified constipation type Other [facility] drug therapy Iron deficiency anemia due to chronic blood loss Iron 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 [employer] [phone] [place] [address] (Home) [place] [address] documented as of this encounter Advance Directives Name Relationship Healthcare Agent Communication Relationship Keaton Nelson Spouse Primary healthcare agent [email or web address] Elisabeth Soliz Sibling First alternate healthcare [phone] agent (Mobile)
--- OUTSIDE RECORDS SUMMARY | 2019-05-11 00:42 | XMS REPORT | Clinical Summary ---
:1970 Author Organization [facility] - [facility] Address [address] [place] [address] Care Team Providers Name Role Phone Lilibeth Andrade MD Primary Care Provider Libby Espinoza RN Unavailable Unavailable Al Valiente MD Unavailable Junito Quezada MD Unavailable Karena Anand OUTPATIENT THERAPIST Unavailable Unavailable Tito Kirkpatrick Unavailable Allergies Active [...] times daily as needed for Constipation. Insulin [place], Use as directed, 400 Each 1 09/19/2017 [...] directed 90 tablet 3 10/30/2018 Active by [facility] based on INR results. ferrous sulfate (IRON) Take 1 tablet by 270 tablet 3 11/06/2018 Active 325 mg (65 mg iron) mouth 3 (three) tabletIndications: times daily with Iron deficiency anemia meals. due to chronic blood loss KCL 20 mEq Take 3 tablets by [...] Active tablet mouth 2 (two) times daily. testosterone Apply 2 Pumps to 75 g [...] (VITAMIN D3) 2,000 unit tablet hydrocortisone 2.5 % Apply to 30 g 3 01/26/2019 Active creamIndications: affected area(s) Seborrheic dermatitis 2 (two) times daily. polyethylene glycol Take 17 g by 238 g 3 01/26/2019 Active (MIRALAX) 17 gram/dose mouth daily. powderIndications: Constipation, unspecified constipation type ARIPiprazole 10 mg Take 1 tablet by 30 tablet 1 01/28/2019 Active tabletIndications: mouth daily. Generalized anxiety disorder, Panic disorder without agoraphobia, Severe episode of recurrent major depressive disorder, without psychotic features desvenlafaxine Take 2 tablets by 60 tablet 1 01/28/2019 Active succinate (PRISTIQ) mouth daily. 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 AR (myocardial infarction) 06/12/2016 Type 2 diabetes mellitus [...] Encounters Date Type Specialty Care Team Description 01/26/2019 Office Visit Internal Medicine Lupe, Seborrheic dermatitis (Primary Dx); Lilibeth Payne MD Constipation, unspecified constipation type; Other usp (current) drug therapy; Iron deficiency anemia due to chronic blood loss; Sore throat; Ear ache; Frequent headaches; Nausea 01/09/2019 Telephone Cardiology Robert Adkins Results MD Namita 01/06/2019 [facility] Radiology Robert Adkins Encounter MD Namita 01/06/2019 [facility] Radiology Robert Adkins Encounter MD Namita 01/05/2019 [facility] Radiology Robert Adkins Encounter MD Namita 01/05/2019 [facility] Radiology Robert Adkins Encounter MD Namita 01/05/2019 Orders Only Doctor Unassigned, [place] 01/03/2019 Refill Endocrinology Ciara Lock Refill Request & Metabolism MD Ritu 01/01/2019 Nurse Visit Anti-coagulation Clinic [facility], Anticoagulation management encounter; MD Osmar Other pulmonary embolism without acute cor pulmonale, unspecified chronicity; Nurse, [facility] Coronary artery disease involving y[place]ap[place]-apache coronary artery of y[place]-apache heart with angina pectoris Anticoag 12/24/2018 Orders Only Doctor Unassigned, [place] 12/17/2018 Refill Gastroenterology Bibiana, Refill Request MD Ioana 12/14/2018 Refill Internal Medicine Lupe, Refill Request Lilibeth Payne MD 12/11/2018 Refill Endocrinology Diabetes Ciara Rosa Refill Request & Metabolism MD Ritu 12/08/2018 Office Visit Cardiology Robert Adkins Coronary artery MD Namita disease involving yavapai-apache coronary artery of yavapai-apache heart with angina pectoris (Primary Dx) 12/07/2018 [...] Tinea cruris 12/04/2018 Nurse [facility], Anticoagulation management encounter; MD Osmar Other pulmonary embolism without acute cor pulmonale, unspecified chronicity; Nurse, [facility] Coronary artery disease involving yavapai-apache coronary artery of [place]ap[place]-apache heart with angina pectoris Anticoag 12/04/2018 Orders Only Doctor Unassigned, [place] 12/03/2018 Refill Cardiology Al Valiente Refill Request [...] Dry skin; Disturbance of skin sensation 11/26/2018 [facility] Cardiac Carayannopoulos, PAF (paroxysmal atrial fibrillation) (Primary Dx); Encounter Electrophysiology MD Ho Bradycardia; Outpt-Simi, Pacemaker reprogramming/check Pacemaker/Icd 11/26/2018 [facility] Visit Phlebotomy Robert Adkins Acute on chronic [...] bilateral; History of uveitis; Refractive error 11/19/2018 [facility] Visit Phlebotomy Robert Adkins Acute on chronic diastolic congestive heart failure; MD Namita Hypopotassemia 2, Adc Lab 11/19/2018 Telephone Cardiology Robert Adkins LAB WORK; Lab MD Namita Results; Medication Dose Change 11/19/2018 Orders Only Doctor Unassigned, [place] 11/13/2018 [facility] Inspector Visit Clinical Medical Robert Adkins Acute on chronic Laboratory MD Namita diastolic congestive 1, Adc Lab heart failure 11/12/2018 Telephone Cardiology Robert Adkins Notification; Lab MD Namita Results 11/12/2018 Telephone Internal Medicine Andrade, Results (Results) Lilibeth Payne MD 11/07/2018 Emergency Emergency Medicine Gaurav Wang, Chest pain, DO unspecified type (Primary Dx) 11/06/2018 Nurse Visit Anti-coagulation Clinic Rick, Anticoagulation management encounter; MD Osmar Other pulmonary embolism without acute cor pulmonale, unspecified chronicity Nurse, [facility] Antico 11/05/2018 Refill Ernesto Harden, Refill Request 11/05/2018 Refill Internal Medicine Lupe, Refill Request Lilibeth Payne MD 11/04/2018 Office Visit Gastroenterology Bibiana, Fatty liver disease, nonalcoholic (Primary Dx); MD Ioana Abnormal liver enzymes 11/04/2018 Telephone Internal Medicine Andrade, Medical Records (MD Sonal Jha) 10/30/2018 Telephone Anti-coagulation Clinic Nat, Refill Request Harley Enamorado MD 10/30/2018 Refill Cardiology Al Valiente Refill Request 10/28/2018 Office Visit Pulmonary Disease Atanasov, Obstructive sleep Strahil T apnea of adult (Primary Dx) from Last 3 Months Immunizations Name Administration [...] Sign Reading Time Taken Comments Blood Pressure 126/81 01/28/2019 10:18 AM CDT Pulse 79 01/28/2019 10:18 AM CDT Temperature 36.9 C (98.5 F) 01/26/2019 3:02 PM CDT Respiratory Rate 19 01/28/2019 10:18 AM CDT Oxygen Saturation 93% 01/26/2019 3:02 PM CDT Inhaled Oxygen Concentration - - Weight 130.6 kg (288 lb) 01/28/2019 10:18 AM CDT Height 177.8 cm (5' 10") 12/08/2018 1:21 PM CDT Body Mass Index 41.32 12/08/2018 1:21 PM CDT Plan of Treatment Date Type Specialty Care Team Description 01/29/2019 Nurse Visit Anti-coagulation Clinic Nurse, Vtc Anticoag 02/09/2019 Office Visit Cardiology Robert Adkins MD [id number] [place] [address] [phone] 02/23/2019 Office Visit Internal Medicine Lilibeth Andrade MD [address] [place] [address] Dr [address] [place] [address] [phone] 02/24/2019 Office Visit Endocrinology Diabetes & Zhen Jones MD [address] [address] [phone] 03/24/2019 Office Visit Gastroenterology Ioana Mccarty MD [address] [place] [address] [phone] 04/01/2019 Office Visit Internal Medicine Lilibeth Andrade MD [address] [place] [address] Dr Lewis [address] [place] [address] [phone] 05/04/2019 Office Visit Cardiology Al Valiente MD [address] [address] [address] [place], [place] [phone] 05/13/2019 Office Visit Internal Medicine Lilibeth Andrade MD [address] [place] [address] Dr Lewis [address] [place] [address] [phone] 05/27/2019 Appointment Cardiac Electrophysiology Outpt-Siim, Pacemaker/Icd 06/08/2019 Office Visit Internal Medicine Lilibeth Andrade MD [address] [place] [address] Dr Lewis [address] [place] [address] [phone] 10/27/2019 Office Visit Pulmonary Disease Max Aguiar [address] [place] [address] Dr [address] [place] [phone] 12/08/2019 Office Visit Ophthalmology Yariel Tineo MD [address] [place] [address] [phone] Health Maintenance Due Date Last Done Comments [...] 06/27/2017 (Not Indicated) Implants Implanted Type Area Economics Faculty Member Device Shelf Model / Identifier Expiration Serial / Date Lot Prolene Mesh MESH Right: Ethicon 12/20/2020 PMSK / Implanted: Qty: 1 on 07/04/2016 by Alfonso Martinez MD at [facility] [employer] PMSK / [id number] Stent-06/24/2016 Implanted: 06/24/2016 (Quantity not on file) Procedures Procedure Name Priority Date/Time Associated Comments Diagnosis NM MYOCARDIUM PERFUSION Routine 01/06/2019 11:16 Coronary artery Results for this STRESS AND REST AM CDT disease involving procedure are in yavapai-apache coronary the results artery of [place]ap[place]-apache section. heart with angina pectoris CONSENT/REFUSAL FOR [...] AND AM CDT IRREVOCABLE ASSIGNMENTS (FORM 2001) [facility] PATIENT FINANCIAL Routine 11/19/2018 12:32 POLICY PM [...] 11/07/2018 3:36 Chest pain, Results for this ([id number]) AM CDT unspecified type procedure are in [...] DME/SUPPLY Routine 10/28/2018 12:01 JUSTIFICATION AM CDT from Last 3 Months Results NM MYOCARDIUM [...] ventricular wall motion is normal Procedure Note [facility], Radiant Results Inft User - 01/10/2019 11:34 [...] ischemia. Normal left ventricular function. Performing Organization Address [facility] Phone Number PACS/VR/DOSE CONSENT/REFUSAL FOR DIAGNOSIS AND TREATMENT (01/05/2019 9:12 AM CDT)Only the most recent of4 resultswithin the time period is included. Specimen Performing Organization Address [facility] Phone Number [facility] ASSIGNMENT OF BENEFITS (01/05/2019 9:11 AM CDT)Only the most recent of2 resultswithin the time period is included. Specimen Performing Organization Address [facility] Phone Number [facility] HEART STATION PHARMACOLOGIC WORKSHEET (NUCLEAR EKG) (01/05/2019 12:01 AM CDT) Specimen Performing Organization Address [facility] Phone Number [facility] POCT PT/INR(COAGUCHEK) (01/01/2019)Only the most recent of3 resultswithin the time period is included. POCT PT/INR 2.9 (A) 0.8 - 1.4 INR POCT PT/SEC 34.9 SEC Specimen Blood - CAPILLARY EXTERNAL PROVIDER RECORDS (12/24/2018 12:01 AM CDT)Only the most recent of2 resultswithin the time period is included. Specimen Performing Organization Address City/[facility] Phone Number [facility] EMERGENCY SERVICES AGREEMENTS AND AUTHORIZATIONS (12/05/2018 12:01 AM CDT)Only the most recent of3 resultswithin the time period is included. Specimen Performing Organization Address [facility] Phone Number [facility] NOTICE OF PRIVACY PRACTICES (12/04/2018 6:47 PM CDT) Specimen Performing Organization Address [facility] Phone Number [facility] PACEMAKER DEVICE CHECK (11/26/2018 11:32 AM CDT) Specimen Performing Organization Address [facility] Phone Number BASIC METABOLIC PANEL ([id number])(NA, K, CL, CO2, GLUCOSE, BUN, CREATININE, CA) (11/2018 9:54 AM CDT)Only the most recent of3 resultswithin the time period is included. NA 140 135 - 145 [facility] mmol/L [facility] K 3.9 3.5 - 5.0 [facility] mmol/L [facility] CL 101 98 - 108 mmol/L [facility] CO2 TOTAL 28 23 - 31 mmol/L [facility] AGAP 11 2 - 16 [facility] BUN 15 7 - 23 mg/dL [facility] GLUCOSE 119 (H) 70 - 110 mg/dL [facility] CREATININE 1.00 0.60 - 1.25 [facility] mg/dL [facility] CALCIUM 9.5 8.6 - 10.6 [facility] mg/dL [facility] eGFR Calculation 79.4 mL/min/1.73m2 [facility] ([facility] LABORATORY Bangladeshi) eGFR Calculation 96.3 mL/min/1.73m2 [facility] () [facility] Specimen Blood Narrative Performed At Association of Glomerular Filtration Rate (GFR) [facility] and Staging of Kidney Disease* + [...] tests). Performing Organization Address City/State/Zipcode Phone Number [facility] CLIA: [id number], [address] [place] [address] AGREEMENTS AUTHORIZATIONS AND IRREVOCABLE ASSIGNMENTS (FORM 2000) (11/26/2018 12 :01 AM CDT) Specimen Performing Organization Address City/State/Zipcode Phone Number [facility] PATIENT FINANCIAL POLICY (11/19/2018 12:32 PM CDT) Specimen Performing Organization Address City/State/Zipcode Phone Number [facility] NO SHOW OR MISSED APPOINTMENT POLICY ACKNOWLEDGEMENT (11/19/2018 12:32 PM CDT) Specimen Performing Organization Address City/State/Zipcode Phone Number [facility] TROPONIN I (11/07/2018 5:18 AM CDT)Only the most recent of2 resultswithin the time period is included. TROPONIN I 0.003 <=0.034 ng/mL [facility] Specimen Blood - VENOUS Narrative Performed At Equal or Less than 0.034 ng/ml---Normal [facility] Note: Cardiac troponin begins to rise [...] patient's use of biotin. Performing Organization Address [facility]/Zipcode Phone Number [facility] CLIA: [id number], [address] [place] [address] XR CHEST 1 VW [...] with its right atrial and ventricular leads. Kathi Crane MD., have reviewed this study and agree with the above report. Performing Organization Address City/[facility]/Zipcode Phone Number PACS/VR/DOSE EKG-12 LEAD (11/07/2018 3:36 AM CDT) Specimen Performing Organization Address [facility]/Zipcode Phone Number HST CBC WITH DIFFERENTIAL (11/07/2018 3:36 AM CDT) WBC 11.79 (H) 4.20 - 10.70 [facility] 10*3/L [facility] RBC 6.10 (H) 4.26 - 5.52 [facility] 10*6/L [facility] HGB 14.6 12.2 - 16.4 [facility] g/dL [facility] HCT 45.4 38.4 - 49.3 % [facility] MCV 74.4 (L) 81.7 - 95.6 fL [facility] MCH 23.9 (L) 26.1 - 32.7 pg [facility] MCHC 32.2 31.2 - 35.0 [facility] g/dL [facility] RDW-SD 43.8 38.5 - 51.6 fL [facility] RDW-CV 17.9 (H) 12.1 - 15.4 % [facility] PLT 345 (H) 150 - 328 [facility] 10*3/L [facility] MPV 9.4 (L) 9.8 - 13.0 fL [facility] NRBC/100 WBC 0.0 0.0 - 10.0 /100 [facility] WBCs [facility] NRBC x10^3 <0.01 10*3/L [facility] GRAN MAT (NEUT) % 71.8 % [facility] IMM GRAN % 0.70 % [facility] LYMPH % 17.0 % [facility] MONO % 9.0 % [facility] EOS % 1.0 % [facility] BASO % 0.5 % [facility] GRAN MAT x10^3(ANC) 8.47 (H) 1.99 - 6.95 [facility] 10*3/uL [facility] IMM GRAN x10^3 0.08 (H) 0.00 - 0.06 [facility] 10*3/uL [facility] LYMPH x10^3 2.00 1.09 - 3.23 [facility] 10*3/uL [facility] MONO x10^3 1.06 (H) 0.36 - 1.02 [facility] 10*3/uL [facility] EOS x10^3 0.12 0.06 - 0.53 [facility] 10*3/uL [facility] BASO x10^3 0.06 0.01 - 0.09 [facility] 10*3/uL [facility] Specimen Blood - VENOUS Performing Organization Address City/State/Zipcode Phone Number [facility] CLIA: [id number], [address] [place] [address] N-TERMINAL PRO-BNP (11/07/2018 3:36 AM CDT) [facility] NT-proBNP 27 <=125 pg/mL [facility] Specimen Blood - VENOUS Narrative Performed At [facility] Biotin has been reported to cause a negative bias, interpret results relative to patient's use of biotin. Performing Organization Address City/State/[facility] Phone Number [facility] CLIA: [id number], [address] [place] [address] aPTT (11/07/2018 3:36 AM CDT) [facility] APTT Patient 65 (H) 23 - 38 Seconds [facility] Specimen Blood - VENOUS Narrative Performed At The [facility] patient population mean normal value [facility] for aPTT is 30 seconds. Performing Organization Address City/[facility] Phone Number [facility] CLIA: [id number], [address] [place] [address] PROTHROMBIN TIME / INR (11/07/2018 3:36 AM CDT) [facility] PROTIME PATIENT 24.1 (H) 12.0 - 14.7 [facility] LABORATORY INR 2.3Comment: Normal [facility] INR <1.1; Warfarin [facility] Therapeutic range LABORATORY 2.0 to 3.0 or 2.5 to 3.5, depending upon the indications. Specimen Blood - VENOUS Performing Organization Address [facility] Phone Number [facility] CLIA: [id number], [address] [place] [address] COMP. METABOLIC PANEL ([id number]) (11/07/2018 3:36 AM CDT) [facility] NA 139 135 - 145 [facility] mmol/L [facility] K 3.2 (L) 3.5 - 5.0 [facility] mmol/L [facility] CL 90 (L) 98 - 108 mmol/L [facility] CO2 TOTAL 38 (H) 23 - 31 mmol/L [facility] AGAP 11 2 - 16 [facility] BUN 29 (H) 7 - 23 mg/dL [facility] GLUCOSE 194 (H) 70 - 110 mg/dL [facility] CREATININE 1.28 (H) 0.60 - 1.25 [facility] mg/dL HOSPITAL [facility] TOTAL BILI 0.6 0.1 - 1.1 mg/dL [facility] CALCIUM 10.0 8.6 - 10.6 [facility] mg/dL [facility] T PROTEIN 8.9 (H) 6.3 - 8.2 g/dL [facility] ALBUMIN 4.5 3.5 - 5.0 g/dL [facility] ALK PHOS 141 (H) 34 - 122 U/L [facility] ALT(SGPT) 20 9 - 51 U/L [facility] AST(SGOT) 29 13 - 40 U/L [facility] eGFR Calculation 59.7 mL/min/1.73m2 [facility] ([facility] Bangladeshi) eGFR Calculation 72.4 mL/min/1.73m2 [facility] () [facility] Specimen Blood - VENOUS Narrative Performed At [facility] Association of Glomerular Filtration Rate (GFR) [...] abnormalities in imaging tests). Performing Organization Address City/[facility]/Zipcode Phone Number [facility] CLIA: [id number], [address] [place] [address] LIPASE, SERUM (11/07/2018 3:36 AM CDT) LIPASE 33 0 - 220 U/L [facility] Specimen Blood - VENOUS Performing Organization Address City/[facility] Phone Number [facility] CLIA: [id number], [address] [place] [address] DME/SUPPLY JUSTIFICATION (10/28/2018 12:01 AM CDT) Specimen Performing Organization Address City/State/Zipcode Phone Number HIM from Last 3 Months Insurance Payer Benefit Plan / Subscriber ID Effective Phone Address Type Group Dates [employer] [id number] 2017-Pre [phone] [address] HMO HEALTH CHOICE HEALTH CHOICE sent [phone] [place] [address] [employer]ON [employer] [id number] 2016-Pre [phone] [facility] sent [phone] [facility] , [address] [place] [address] Advance Directives Name Relationship Healthcare Agent Communication Relationship Keaton Leslie Spouse Primary healthcare agent Eliasbeth Soliz Sibling First alternate healthcare [phone] agent (Mobile)
--- OUTSIDE RECORDS SUMMARY | 2019-05-11 00:44 | XMS REPORT | Summary of Care ---
:1970 Author Organization [facility] Address [address] [place] [id number] Care Team Providers Name Role Phone Lilibeth Andrade MD Primary Care Provider Libby Espinoza RN Unavailable Unavailable Al Valiente MD Unavailable Junito Quezada MD Unavailable Karena Anand MANAGER INTERNAL Unavailable Unavailable Tito Kirkpatrick Unavailable Reason for Visit Reason Comments PT/INR Encounter Details Date Type Department Care Team Description 01/29/2019 Nurse Visit [facility] Osmar Cabrera MD [address] [place] [address] Other pulmonary embolism without acute cor pulmonale, unspecified chronicity; Bmvr-Sulvdnbypuq-XO Nurse, Vtc Anticoag Anticoagulation management encounter [facility] [address] [place] [id number] Allergies Active Allergy Reactions Severity Noted Date [...] as of this encounter (statuses as of 01/29/2019) Medications Medication Sig Dispensed Refills Start Date End Date Status docusate 100 mg Take 1 capsule by 30 capsule 0 07/04/2016 Active capsule mouth 2 (two) times daily as needed for Constipation. Insulin [place], Use as directed, 400 Each 1 09/19/2017 Active Disposable, (RELIGENA GUZMAN, DX:E11.9 PEN NEEDLES) 32 gauge x 5/32" [...] directed 60 tablet 3 10/30/2018 Active by [facility] based on INR results. [...] disorder, without psychotic features, Generalized anxiety disorder documented as of this encounter (statuses as of 01/29/2019) Active Problems Problem Noted Date Bradycardia 10/06/2018 [...] Overview: Added automatically from request for surgery [id number] Syncope 04/01/2017 Chest pain, rule out acute [...] Chest pain 06/12/2016 Coronary artery disease involving [place] coronary artery of [place] heart 06/12 with angina pectoris [place] (myocardial infarction) 06/12/2016 Type 2 diabetes mellitus without complication 06/12/2016 Essential hypertension 06/12/2016 History of alcohol abuse Overview: Sober for 16 years documented as of this encounter (statuses as of 01/29/2019) Resolved Problems Problem Noted Date Resolved Date Chest pain radiating to arm 08/08/2016 08/19/2016 Abdominal pain 07/19/2016 08/19/2016 History of epidural anesthesia 07/04/2016 08/19/2016 Morbid obesity with body mass index of 50 or higher 06/26/2016 08/19/2016 Obesity (BMI 30-39.9) 06/12/2016 08/19/2016 documented as of this encounter (statuses as of 01/29/2019) Immunizations Name Administration Dates Next Due Td [...] of this encounter Last Filed Vital Signs Not on filedocumented in this encounter Patient Instructions Patient InstructionsDeepika Bagley RN - 01/29/2019 8:00 AM CDTContinue eating Vitamin K foods twice a week Warfarin (Coumadin) dose: 57.5 mg per week (using 7.5 mg tablets - yellow and 10 mg tablets - white) Friday: 7.5 mg Friday: 7.5 mg Friday: 7.5 mg Friday: 10 mg : 7.5 mg Friday: 7.5 mg Friday: 10 mg Repeat above schedule until you return for your next visit. Because you are taking warfarin it is important that you get immediate medical attention if you develop any signs or symptoms of bleeding. Also, if you should fall and hit your head you must be evaluated immediately at the emergency room where they may do a CT scan to rule out a subdural hematoma or other internal bleeding event. You may have bleeding you cannot see which may be fatal. Please make sure you tell your loved ones about this warning. For your safety, please remember to call the [facility] if any of your current medications change dose, if you get new medications, or if medications are stopped. There may be interactions with medications that will increase your risk of bleeding or forming blood clots. When you call the clinic([phone]) we will advise you if your INR should be checked sooner than your next scheduled appointment or you may need to adjust your Vitamin K food intake. [facility] Contact Information [facility]-- Deepika [phone] [email or web address] Galdino Turner [phone] [email or web address] [phone] [email or web address] To schedule appts - [phone] Emergency Dial 911 or go to the nearest Emergency Room documented in this encounter Progress Notes Deepika Bagley RN - 01/29/2019 8:00 AM CDT ANTI-COAGULATION CLINIC NOTE Anti-Coagulation diagnosis: ICD-10-CM ICD-9-CM 1. Other pulmonary embolism without acute cor pulmonale, unspecified chronicity I26.99 415.19 2. Anticoagulation management encounter Z51.81 V58.83 Z79.01 V58.61 Warfarin (Coumadin) dose: 57.5 mg per week (using 7.5 mg tablets - yellow and 10 mg tablets - white) Friday: 7.5 mg Friday: 7.5 mg Friday: 7.5 mg Friday: 10 mg : 7.5 mg Friday: 7.5 mg Friday: 10 mg Cognitive assessment: alert and oriented times 3 Finger stick performed using aseptic technique, sticking left hand, middle finger, and Y'all machine [id number] was used. Blood sample was obtained ; Band aid was applied. Strip used today lot number: [id number] POCT PT/INR Date Value Ref Range Status 01/29/2019 2.7 (A) 0.8 - 1.4 INR Final POCT PT/SEC Date Value Ref Range Status 01/29/2019 32.6 SEC Final Anti-Coagulation diagnosis: ICD-10-CM ICD-9-CM 1. Other pulmonary embolism without acute cor pulmonale, unspecified chronicity I26.99 415.19 2. Anticoagulation management encounter Z51.81 V58.83 Z79.01 V58.61 Duration of Anticoagulation Therapy As of 01/29/2019 TTR: 70.9 % (4.5 mo) Target end date: Indefinite Target Range As of 01/29/2019 INR goal: 2.0-3.0 TTR: 70.9 % (4.5 mo) PT/INR within therapeutic range Pt stated no medication, supplement, vitamin, or herb has been added, deleted, or dose changed thatwould interact with warfarin since last [facility] visit. Pt will review and reconcile medication list at next PCP appointment. Patient verbalized understanding and agreement with the plan of care. Change in dose: no change Patient notified: yes Patient verbalized understanding and agreement with the plan of care. Patient was provided with written and verbal educational information on January regarding theinteraction of warfarin with various foods and medications as part of ongoing education within the [facility]. Patient shows readiness to learn. Patient is able to read and verbalizes understanding of teaching provided and is provided a printed after visit summary (AVS) documenting the visit, pertinent patient instructions and follow-up recommendations. documented in this encounter Plan of Treatment Date Type Specialty Care Team Description 02/09/2019 Office Visit Cardiology Robert Adkins MD [id number] [place], [place] [id number] 02/23/2019 Office Visit Internal Medicine Lilibeth Andrade MD [address] [place] [address] Dr Lewis [address] [place] [id number] 02/24/2019 Office Visit Endocrinology Diabetes & Zhen Jones MD [address] [id number] 02/26/2019 Nurse Visit [facility] Nurse, Vtc Anticoag 03/24/2019 Office Visit Gastroenterology Ioana Mccarty MD [address] [place] [id number] 04/01/2019 Office Visit Internal Medicine Lilibeth Andrade MD [address] [place] [address] Dr Lewis [address] [place] [phone] 05/04/2019 Office Visit Cardiology Al Valiente MD [address] [place] [address] [address] [place], [place] [phone] 05/13/2019 Office Visit Internal Medicine Lilibeth Andrade MD [address] [place] [address] Dr Lewis [address] [place] [address] [phone] 05/27/2019 Appointment Cardiac Electrophysiology Outpt-Simi, Pacemaker/Icd 06/08/2019 Office Visit Internal Medicine Lilibeth Andrade MD [address] [place] [address] Dr Lewis [address] [place] [address] [phone] 10/27/2019 Office Visit Pulmonary Disease Max Aguiar [address] [place] [address] [phone] 12/08/2019 Office Visit Ophthalmology Yariel Tineo MD [address] [place] [address] Health Maintenance Due Date Last Done [...] of this encounter Implants Implanted Type Area Hedis Nurse Device Shelf Model / Identifier Expiration Serial / Date Lot Prolene Mesh MESH Right: Ethicon 12/20/2020 PMSK / Implanted: Qty: 1 on 07/04/2016 by Alfonso Martinez MD at [facility] [employer] PMSK / [id number] Stent-06/24/2016 Implanted: 06/24/2016 (Quantity not on file) documented as of this encounter Procedures Procedure Name Priority Date/Time Associated Diagnosis Comments POCT Routine 01/29/2019 Other pulmonary Results for this PT/INR(COAGUCHEK) embolism without acute procedure are in the cor pulmonale, results section. unspecified chronicity documented in this encounter Results POCT PT/INR(HELEN) (01/29/2019) POCT PT/INR 2.7 (A) 0.8 - 1.4 INR POCT PT/SEC 32.6 SEC Specimen Blood - CAPILLARY documented in this encounter Visit Diagnoses Diagnosis Other pulmonary embolism without acute cor pulmonale, unspecified chronicity Anticoagulation management encounter Encounter for therapeutic drug monitoring documented in this encounter Insurance Payer Benefit Plan / Subscriber ID Effective Phone Address Type Group Dates [facility] [id number] 2017-[employer]ux [phone] [address] HMO DLS [address] [id number] [place] [address] (Home) [place] [address] documented as of this encounter Advance Directives Name Relationship Healthcare Agent Communication Relationship Keaton Nelson Spouse Primary healthcare agent Elisabeth Soliz Sibling First alternate healthcare [phone] agent (Mobile)
--- OUTSIDE RECORDS SUMMARY | 2019-05-11 00:44 | XMS REPORT | Clinical Summary ---
:1970 Author Organization [facility] - [facility] Address [address] [place] [address] Care Team Providers Name Role Phone Lilibeth Andrade MD Primary Care Provider Libby Espinoza RN Unavailable Unavailable lA Valiente MD Unavailable Junito Quezada MD Unavailable Karena Anand [employer] EQUIPMENT TENDER Unavailable Unavailable Tito Kirkpatrick Unavailable Allergies Active [...] times daily as needed for Constipation. Insulin [place], Use as directed, 400 Each 1 09/19/2017 [...] Overview: Added automatically from request for surgery [id number] Syncope 04/01/2017 Chest pain, rule out acute [...] Chest pain 06/12/2016 Coronary artery disease involving [place] coronary artery of [place] heart 06/12 with angina pectoris [place] (myocardial infarction) 06/12/2016 Type 2 diabetes mellitus [...] Payne MD Constipation, unspecified constipation type; Other halfway (current) drug therapy; Iron deficiency anemia due to chronic blood loss; Sore throat; Ear ache; Frequent headaches; Nausea 01/09/2019 Telephone Cardiology Robert Adkins Results MD Namita 01/06/2019 [facility] Radiology Robert Adkins Encounter MD Namita 01/06/2019 [facility] Radiology Robert Adkins Encounter MD Namita 01/05/2019 [facility] Radiology Robert Adkins Encounter MD Namita 01/05/2019 [facility] Radiology Robert Adkins Encounter MD Namita 01/05/2019 Orders Only Doctor Unassigned, [place] 01/03/2019 Refill Endocrinology Ciara Lock Refill Request & Metabolism MD Ritu 01/01/2019 Nurse Visit Anti-coagulation Clinic [facility], Anticoagulation management encounter; MD Osmar Other pulmonary embolism without acute cor pulmonale, unspecified chronicity; Nurse, [facility] Coronary artery disease involving the [place] coronary artery of [place] heart with angina pectoris Anticoag 12/24/2018 Orders Only Doctor Unassigned, [place] 12/17/2018 Refill Gastroenterology Bibiana, Refill Request MD Ioana 12/14/2018 Refill Internal Medicine Lupe, Refill Request Lilibeth Payne MD 12/11/2018 Refill Endocrinology Diabetes Ciara Rosa Refill Request & Metabolism MD Ritu 12/08/2018 Office Visit Cardiology Robert Adkins Coronary artery MD Namita disease involving the [place] coronary artery of [place] heart with angina pectoris (Primary Dx) 12/07/2018 [...] Tinea cruris 12/04/2018 Nurse Visit [facility], Anticoagulation management encounter; MD Osmar Other pulmonary embolism without acute cor pulmonale, unspecified chronicity; Nurse, [facility] Coronary artery disease involving the [place] coronary artery of [place] heart with angina pectoris Anticoag 12/04/2018 Orders Only Doctor Unassigned, [place] 12/03/2018 Refill Cardiology Al Valiente Refill Request [...] Dry skin; Disturbance of skin sensation 11/26/2018 [facility] Cardiac Carayannopoulos, PAF (paroxysmal atrial fibrillation) (Primary Dx); Encounter Electrophysiology MD Ho Bradycardia; Outpt-Simi, Pacemaker reprogramming/check Pacemaker/Icd 11/26/2018 [facility] Visit Phlebotomy Robert Adkins Acute on chronic [...] bilateral; History of uveitis; Refractive error 11/19/2018 [facility] Visit Phlebotomy Robert Adkins Acute on chronic diastolic congestive heart failure; MD Namita Hypopotassemia 2, Adc Lab 11/19/2018 Telephone Cardiology Robert Adkins LAB WORK; Lab MD Namita Results; Medication Dose Change 11/19/2018 Orders Only Doctor Unassigned, [place] 11/13/2018 [facility] Visit Clinical Medical Robert Adkins Acute on chronic Laboratory MD Namita diastolic congestive 1, Adc Lab heart failure 11/12/2018 Telephone Cardiology Roebrt Adkins Notification; Lab MD Namita Results 11/12/2018 Telephone Internal Medicine Andrade, Results (Results) Lilibeth Payne MD 11/07/2018 Emergency Emergency Medicine Gaurav Wang, Chest pain, DO unspecified type (Primary Dx) 11/06/2018 Nurse Visit Anti-coagulation Clinic Rick, Anticoagulation management encounter; MD Osmar Other pulmonary embolism without acute cor pulmonale, unspecified chronicity Nurse, [facility] Antico 11/05/2018 Refill Ernesto Harden, Refill Request 11/05/2018 Refill Internal Medicine Lupe, Refill Request Lilibeth Payne MD 11/04/2018 Office Visit Gastroenterology Bibiana, Fatty liver disease, nonalcoholic (Primary Dx); MD Ioana Abnormal liver enzymes 11/04/2018 Telephone Internal Medicine Andrade, Medical Records (MD Sonal Jha) 10/30/2018 Telephone Anti-coagulation Clinic Nat, Refill Request Harlye Enamorado MD 10/30/2018 Refill Cardiology Al Valiente [...] Cardiology Robert Adkins MD [id number] [place] [address] [phone] 02/23/2019 Office Visit Internal Medicine Lilibeth Andrade MD [address] [place] [address] Dr Lewis [address] [place] [address] [phone] 02/24/2019 Office Visit Endocrinology Diabetes & Zhen Jones MD [address] [address] [phone] 03/24/2019 Office Visit Gastroenterology Ioana Mccarty MD [address] [place] [address] [phone] 04/01/2019 Office Visit Internal Medicine Lilibeth Andrade MD [address] [place] [address] Dr Lewis [address] [place] [address] [phone] 05/04/2019 Office Visit Cardiology Al Valiente MD [address] [place] [address] [address] [place], [place] [phone] 05/13/2019 Office Visit Internal Medicine Lilibeth Andrade MD [address] [place] [address] Dr Lewis [address] [place] [address] [phone] 05/27/2019 Appointment Cardiac Electrophysiology Outpt-Simi, Pacemaker/Icd 06/08/2019 Office Visit Internal Medicine Lilibeth Andrade MD [address] [place] [address] Dr Lewis [address] [place] [address] [phone] 10/27/2019 Office Visit Pulmonary Disease Max Aguiar [address] [place] [address] Dr Lewis [address] [place] [address] [phone] 12/08/2019 Office Visit Ophthalmology Yariel Tineo MD [address] [place] [address] [phone] Health Maintenance Due Date Last Done Comments [...] 06/27/2017 (Not Indicated) Implants Implanted Type Area Poultry Helper Device Shelf Model / Identifier Expiration Serial / Date Lot Prolene Mesh MESH Right: Ethicon 12/20/2020 PMSK / Implanted: Qty: 1 on 07/04/2016 by Alfonso Martinez MD at [facility] [employer] PMSK / [id number] Stent-06/24/2016 Implanted: 06/24/2016 (Quantity not on file) Procedures Procedure Name Priority Date/Time Associated Comments Diagnosis NM MYOCARDIUM PERFUSION Routine 01/06/2019 11:16 Coronary artery Results for this STRESS AND REST AM CDT disease involving procedure are in [place] coronary the results artery of the [place] section. heart with angina pectoris CONSENT/REFUSAL FOR [...] AND AM CDT IRREVOCABLE ASSIGNMENTS (FORM 2001) [facility] PATIENT FINANCIAL Routine 11/19/2018 12:32 POLICY PM [...] 11/07/2018 3:36 Chest pain, Results for this (34234) AM CDT unspecified type procedure are in [...] left ventricular function. Performing Organization Address [facility] Phone Number PACS/VR/DOSE CONSENT/REFUSAL FOR DIAGNOSIS AND TREATMENT (01/05/2019 9:12 AM CDT)Only the most recent of4 resultswithin the time period is included. Specimen Performing Organization Address [facility] Phone Number [facility] ASSIGNMENT OF BENEFITS (01/05/2019 9:11 AM CDT)Only the most recent of2 resultswithin the time period is included. Specimen Performing Organization Address [facility] Phone Number [facility] HEART STATION PHARMACOLOGIC WORKSHEET (NUCLEAR EKG) (01/05/2019 12:01 AM CDT) Specimen Performing Organization Address [facility] Phone Number [facility] POCT PT/INR(COAGUCHEK) (01/01/2019)Only the most recent of3 resultswithin the time period is included. POCT PT/INR 2.9 (A) 0.8 - 1.4 INR POCT PT/SEC 34.9 SEC Specimen Blood - CAPILLARY EXTERNAL PROVIDER RECORDS (12/24/2018 12:01 AM CDT)Only the most recent of2 resultswithin the time period is included. Specimen Performing Organization Address City/[facility] Phone Number [facility] EMERGENCY SERVICES AGREEMENTS AND AUTHORIZATIONS (12/05/2018 12:01 AM CDT)Only the most recent of3 resultswithin the time period is included. Specimen Performing Organization Address [facility] Phone Number [facility] NOTICE OF PRIVACY PRACTICES (12/04/2018 6:47 PM CDT) Specimen Performing Organization Address [facility] Phone Number [facility] PACEMAKER DEVICE CHECK (11/26/2018 11:32 AM CDT) Specimen Performing Organization Address [facility] Phone Number BASIC METABOLIC PANEL ([id number])(NA, K, CL, CO2, GLUCOSE, BUN, CREATININE, CA) (11/2018 9:54 AM CDT)Only the most recent of3 resultswithin the time period is included. NA 140 135 - 145 [facility] mmol/L [facility] K 3.9 3.5 - 5.0 [facility] mmol/L [facility] CL 101 98 - 108 mmol/L [facility] CO2 TOTAL 28 23 - 31 mmol/L [facility] AGAP 11 2 - 16 [facility] BUN 15 7 - 23 mg/dL [facility] GLUCOSE 119 (H) 70 - 110 mg/dL [facility] CREATININE 1.00 0.60 - 1.25 [facility] mg/dL [facility] CALCIUM 9.5 8.6 - 10.6 [facility] mg/dL [facility] eGFR Calculation 79.4 mL/min/1.73m2 [facility] (Non[facility] [place][note 2] LABORATORY [place]) eGFR Calculation 96.3 mL/min/1.73m2 [facility] () [facility] Specimen Blood Narrative Performed At Association of Glomerular Filtration Rate (GFR) [facility] and Staging of Kidney Disease* [...] tests). Performing Organization Address City/State/Zipcode Phone Number [facility] CLIA: [id number], [address] [place] [address] AGREEMENTS AUTHORIZATIONS AND IRREVOCABLE ASSIGNMENTS (FORM 2000) (11/26/2018 12 :01 AM CDT) Specimen Performing Organization Address City/State/Zipcode Phone Number [facility] PATIENT FINANCIAL POLICY (11/19/2018 12:32 PM CDT) Specimen Performing Organization Address City/State/Zipcode Phone Number [facility] NO SHOW OR MISSED APPOINTMENT POLICY ACKNOWLEDGEMENT (11/19/2018 12:32 PM CDT) Specimen Performing Organization Address City/State/Zipcode Phone Number [facility] TROPONIN I (11/07/2018 5:18 AM CDT)Only the most recent of2 resultswithin the time period is included. TROPONIN I 0.003 <=0.034 ng/mL [facility] Specimen Blood - VENOUS Narrative Performed At Equal or Less than 0.034 ng/ml---Normal [facility] Note: Cardiac troponin begins to [...] use of biotin. Performing Organization Address [facility]/Zipcode Phone Number [facility] CLIA: [id number], [address] [place] [address] XR CHEST 1 VW [...] with the above report. Performing Organization Address City/[facility]/Zipcode Phone Number PACS/VR/DOSE EKG-12 LEAD (11/07/2018 3:36 AM CDT) Specimen Performing Organization Address [facility]/Zipcode Phone Number HST CBC WITH DIFFERENTIAL (11/07/2018 3:36 AM CDT) WBC 11.79 (H) 4.20 - 10.70 [facility] 10*3/L [facility] RBC 6.10 (H) 4.26 - 5.52 [facility] 10*6/L [facility] HGB 14.6 12.2 - 16.4 [facility] g/dL [facility] HCT 45.4 38.4 - 49.3 % [facility] MCV 74.4 (L) 81.7 - 95.6 fL [facility] MCH 23.9 (L) 26.1 - 32.7 pg [facility] MCHC 32.2 31.2 - 35.0 [facility] g/dL [facility] RDW-SD 43.8 38.5 - 51.6 fL [facility] RDW-CV 17.9 (H) 12.1 - 15.4 % [facility] PLT 345 (H) 150 - 328 [facility] 10*3/L [facility] MPV 9.4 (L) 9.8 - 13.0 fL [facility] NRBC/100 WBC 0.0 0.0 - 10.0 /100 [facility] WBCs [facility] NRBC x10^3 <0.01 10*3/L [facility] GRAN MAT (NEUT) % 71.8 % [facility] IMM GRAN % 0.70 % [facility] LYMPH % 17.0 % [facility] MONO % 9.0 % [facility] EOS % 1.0 % [facility] BASO % 0.5 % [facility] GRAN MAT x10^3(ANC) 8.47 (H) 1.99 - 6.95 [facility] 10*3/uL [facility] IMM GRAN x10^3 0.08 (H) 0.00 - 0.06 [facility] 10*3/uL [facility] LYMPH x10^3 2.00 1.09 - 3.23 [facility] 10*3/uL HOSPITAL [facility]ORY MONO x10^3 1.06 (H) 0.36 - 1.02 [facility] 10*3/uL [facility] EOS x10^3 0.12 0.06 - 0.53 [facility] 10*3/uL [facility] BASO x10^3 0.06 0.01 - 0.09 [facility] 10*3/uL [facility] Specimen Blood - VENOUS Performing Organization Address City/State/Zipcode Phone Number [facility] CLIA: [id number], [address] [place] [address] N-TERMINAL PRO-BNP (11/07/2018 3:36 AM CDT) [facility] NT-proBNP 27 <=125 pg/mL [facility] Specimen Blood - VENOUS Narrative Performed At [facility] Biotin has been reported to cause a negative bias, interpret results relative to patient's use of biotin. Performing Organization Address City/State/[facility] Phone Number [facility] CLIA: [id number], [address] [place] [address] aPTT (11/07/2018 3:36 AM CDT) [facility] APTT Patient 65 (H) 23 - 38 Seconds [facility] Specimen Blood - VENOUS Narrative Performed At The [facility] patient population mean normal value [facility] for aPTT is 30 seconds. Performing Organization Address City/[facility] Phone Number [facility] CLIA: [id number], [address] [place] [address] PROTHROMBIN TIME / INR (11/07/2018 3:36 AM CDT) [facility] PROTIME PATIENT 24.1 (H) 12.0 - 14.7 [facility] LABORATORY INR 2.3Comment: Normal [facility] INR <1.1; Warfarin [facility] Therapeutic range LABORATORY 2.0 to 3.0 or 2.5 to 3.5, depending upon the indications. Specimen Blood - VENOUS Performing Organization Address [facility] Phone Number [facility] CLIA: [id number], [address] [place] [address] COMP. METABOLIC PANEL ([id number]) (11/07/2018 3:36 AM CDT) [facility] NA 139 135 - 145 [facility] mmol/L [facility] K 3.2 (L) 3.5 - 5.0 [facility] mmol/L [facility] CL 90 (L) 98 - 108 mmol/L [facility] CO2 TOTAL 38 (H) 23 - 31 mmol/L [facility] AGAP 11 2 - 16 [facility] BUN 29 (H) 7 - 23 mg/dL [facility] GLUCOSE 194 (H) 70 - 110 mg/dL [facility] CREATININE 1.28 (H) 0.60 - 1.25 [facility] mg/dL HOSPITAL [facility] TOTAL BILI 0.6 0.1 - 1.1 mg/dL [facility] CALCIUM 10.0 8.6 - 10.6 [facility] mg/dL [facility] T PROTEIN 8.9 (H) 6.3 - 8.2 g/dL [facility] ALBUMIN 4.5 3.5 - 5.0 g/dL [facility] ALK PHOS 141 (H) 34 - 122 U/L [facility] ALT(SGPT) 20 9 - 51 U/L [facility] AST(SGOT) 29 13 - 40 U/L [facility] eGFR Calculation 59.7 mL/min/1.73m2 [facility] [place]) eGFR Calculation 72.4 mL/min/1.73m2 [facility] () [facility] Specimen Blood - VENOUS Narrative Performed At [facility] Association of Glomerular Filtration Rate [...] abnormalities in imaging tests). Performing Organization Address City/[facility]/Zipcode Phone Number [facility] CLIA: [id number], [address] [place] [address] LIPASE, SERUM (11/07/2018 3:36 AM CDT) LIPASE 33 0 - 220 U/L [facility] Specimen Blood - VENOUS Performing Organization Address City/[facility] Phone Number [facility] CLIA: [id number], [address] [place] [address] DME/SUPPLY JUSTIFICATION (10/28/2018 12:01 AM CDT) Specimen Performing Organization Address City/State/Zipcode Phone Number HIM from Last 3 Months Insurance Payer Benefit Plan / Subscriber ID Effective Phone Address Type Group Dates [employer] [id number] 2017-Pre [phone] [address] HMO HEALTH CHOICE HEALTH CHOICE sent [phone] [place] [address] [employer] [id number] 2016-Pre [phone] sent [phone] [facility] , [address] [place] [address] Advance Directives Name Relationship Healthcare Agent Communication Relationship Keaton Leslie Spouse Primary healthcare agent Elisabeth Soliz Sibling First alternate healthcare [phone] agent (Mobile)
--- OUTSIDE RECORDS SUMMARY | 2019-05-11 00:45 | XMS REPORT | Summary of Care ---
:1970 Author Organization [facility] Address [address] [place] [address] Care Team Providers Name Role Phone Lilibeth Andrade MD Primary Care Provider Libby Espinoza RN Unavailable Unavailable Al Valiente MD Unavailable Junito Quezada MD Unavailable Karena Anand PILLOWCASE CUTTER Unavailable Unavailable Tito Kirkpatrick Unavailable Reason for Visit Reason Comments Pre-Visit Planning Appointment Encounter Details Date Type Department Care Team Description 02/05/2019 Telephone [facility] Cardiology- Robert Adkins Pre-Visit Planning; [place] MD Namita [facility]ment [address] [facility] [place] [address] [facility] [id number] [place] [address] Allergies Active Allergy Reactions Severity Noted Date [...] as of this encounter (statuses as of 02/05/2019) Medications Medication Sig Dispensed Refills Start Date End Date Status docusate 100 mg Take 1 capsule by 30 capsule 0 07/04/2016 Active capsule mouth 2 (two) times daily as needed for Constipation. Insulin [place], Use as directed, 400 Each 1 09/19/2017 Active Disposable, (RELION QIDave, DX:E11.9 PEN NEEDLES) 32 gauge x /32" Ndle Diclofenac Sodium 1 % Take 2-4 [...] directed 90 tablet 3 10/30/2018 Active by [facility] [...] as of this encounter (statuses as of 02/05/2019) Active Problems Problem Noted Date Bradycardia 10/06/2018 [...] Overview: Added automatically from request for surgery [id number] Syncope 04/01/2017 Chest pain, rule out acute [...] Chest pain 06/12/2016 Coronary artery disease involving [place]western shoshone coronary artery of [place]western shoshone heart 06/12 with angina pectoris [place] (myocardial infarction) 06/12/2016 Type 2 diabetes mellitus without complication 06/12/2016 Essential hypertension 06/12/2016 History of alcohol abuse Overview: Sober for 16 years documented as of this encounter (statuses as of 02/05/2019) Resolved Problems Problem Noted Date Resolved Date Chest pain radiating to arm 08/08/2016 08/19/2016 Abdominal pain 07/19/2016 08/19/2016 History of epidural anesthesia 07/04/2016 08/19/2016 Morbid obesity with body mass index of 50 or higher 06/26/2016 08/19/2016 Obesity (BMI 30-39.9) 06/12/2016 08/19/2016 documented as of this encounter (statuses as of 02/05/2019) Immunizations Name Administration Dates Next Due Td [...] Signs Not on filedocumented in this encounter Plan of Treatment Date Type Specialty Care Team Description 02/09/2019 Office Visit Cardiology Robert Adkins MD [address] [id number] [place], [place] [address] 02/23/2019 Office Visit Internal Medicine Lilibeth Andrade MD [address] [place] [address] [address] [place], [place] [phone] 02/24/2019 Office Visit Endocrinology Diabetes & Zhen Jones MD Metabolism [address] [place] [address] [phone] 02/26/2019 Nurse Visit Anti-coagulation Clinic Nurse, Christen Brown 03/24/2019 Office Visit Gastroenterology Ioana Mccarty MD [address] [place] [address] [phone] 04/01/2019 Office Visit Internal Medicine Lilibeth Andrade MD [address] [place] [address] Dr [place] [address] [place] [address] [phone] 05/04/2019 Office Visit Cardiology Al Valiente MD [address] [place] [address] [phone] 05/13/2019 Office Visit Internal Medicine Lilibeth Andrade MD [address] [place] [address] Dr [place] [address] [place] [address] [phone] 05/27/2019 Appointment Cardiac Electrophysiology Outpt-Simi, Pacemaker/Icd 06/08/2019 Office Visit Internal Medicine Lilibeth Andrade MD [address] [place] [address] Dr [place] [address] [place] [address] [phone] 10/27/2019 Office Visit Pulmonary Disease Max Aguiar [address] [place] [address] Dr [place] [address] [place] [address] [phone] 12/08/2019 Office Visit Ophthalmology Yariel Tineo MD [address] [place] [address] 585230 Name Type Priority Associated Diagnoses Order Schedule BASIC METABOLIC PANEL LAB Routine Chronic diastolic 1 Occurrences starting (55607)(NA, K, CL, CO2, congestive heart failure 02/05/2019 until GLUCOSE, BUN, 02/06/2020 CREATININE, CA) MAGNESIUM LAB Routine Chronic diastolic 1 Occurrences starting congestive heart failure 02/05/2019 until 02/06/2020 Health Maintenance Due Date Last Done Comments PNEUMOCOCCAL 0-64 YEARS 1975 COMBINED SERIES (1 of 1 - PPSV23) URINE MICROALBUMIN 01/19/2019 01/19/2018, 08/20/2016 HgA1C 01/25/2019 07/28/2018, 03/30/2018, 01/11/2018, Additional history exists INFLUENZA VACCINE (#1) 2019 LDL-C 07/28/2019 07/28/2018, 01/11/2018, 12/31/2017, Additional history exists FOOT EXAM 09/23/2019 09/22/2018, 09/22/2018, 04/22/2018, Additional history exists EYE EXAM 11/20/2019 11/19/2018, 11/13/2017 CREATININE (SERUM) 11/27/2019 11/26/2018, 11/19/2018, 11/13/2018, Additional history exists DTaP,Tdap,and Td Vaccines 06/26/2027 06/26/2017, 03/19/2015 Postponed from (1 - Tdap) 06/27/2017 (Not Indicated) documented as of this encounter Implants Implanted Type Area Equity Trader Device Shelf Model / Identifier Expiration Serial / Date Lot Prolene Mesh MESH Right: Ethicon 12/20/2020 PMSK / Implanted: Qty: 1 on 07/04/2016 by Alfonso Martinez MD at [facility] [employer] PMSK / [id number] Stent-06/24/2016 Implanted: 06/24/2016 (Quantity not on file) documented as of this encounter Results Not on filedocumented in this encounter Visit Diagnoses Diagnosis Chronic diastolic congestive heart failure - Primary Chronic diastolic heart failure documented in this encounter Insurance Payer Benefit Plan / Subscriber ID Effective Phone Address Type Group Dates [facility] [id number] 2017-Pre [phone] [address] HMO HEALTH CHOICE HEALTH CHOICE sent [phone] [place] [address] BEACON BEACON [id number] 2016-Pre [phone] [facility] sent [address] [facility] , [address] [place] [address] documented as of this encounter Advance Directives Name Relationship Healthcare Agent Communication Relationship Keaton Quinoneslynne Spouse Primary healthcare agent [email or web address] Elisabeth Martínez Sibling [facility] [phone] agent (Mobile)
--- OUTSIDE RECORDS SUMMARY | 2019-05-11 00:45 | XMS REPORT | Summary of Care ---
:1970 Author Organization [facility] - Health Address [address] [place], [place] [address] Care Team Providers Name Role Phone Lilibeth Andrade MD Primary Care Provider Libby Espinoza RN Unavailable Unavailable Al Valiente MD Unavailable Junito Quezada MD Unavailable Karena Anand GATEMAN Unavailable Unavailable Tito Kirkpatrick Unavailable Encounter Details Date Type Department Care Team Description 02/06/2019 Orders Only [facility] Doctor Unassigned, No [address] [facility] [place] [address] [address] [place] [phone] Allergies Active Allergy Reactions Severity Noted Date [...] as of this encounter (statuses as of 02/06/2019) Medications Medication Sig Dispensed Refills Start Date End Date Status docusate 100 mg Take 1 capsule by 30 capsule 0 07/04/2016 Active capsule mouth 2 (two) times daily as needed for Constipation. Insulin [place], Use as directed, 400 Each 1 09/19/2017 [...] as of this encounter (statuses as of 02/06/2019) Active Problems Problem Noted Date Bradycardia 10/06/2018 [...] Overview: Added automatically from request for surgery [id number] Syncope 04/01/2017 Chest pain, rule out acute [...] Chest pain 06/12/2016 Coronary artery disease involving [place] coronary artery of [place] heart 06/12 with angina pectoris [place] (myocardial infarction) 06/12/2016 Type 2 diabetes mellitus without complication 06/12/2016 Essential hypertension 06/12/2016 History of alcohol abuse Overview: Sober for 16 years documented as of this encounter (statuses as of 02/06/2019) Resolved Problems Problem Noted Date Resolved Date Chest pain radiating to arm 08/08/2016 08/19/2016 Abdominal pain 07/19/2016 08/19/2016 History of epidural anesthesia 07/04/2016 08/19/2016 Morbid obesity with body mass index of 50 or higher 06/26/2016 08/19/2016 Obesity (BMI 30-39.9) 06/12/2016 08/19/2016 documented as of this encounter (statuses as of 02/06/2019) Immunizations Name Administration Dates Next Due Td [...] Cardiology Robert Adkins MD [address] [id number] [place] [address] [phone] 02/23/2019 Office Visit Internal Medicine Lilibeth Andrade MD [address] [place] [address] Dr [place] [address] [place] [phone] 02/24/2019 Office Visit Endocrinology Diabetes & Zhen Jones MD [address] [address] [phone] 02/26/2019 Nurse Visit Anti-coagulation Clinic Nurse, Christen Anticoag 03/24/2019 Office Visit Gastroenterology Ioana Mccarty MD [address] [place] [address] [phone] 04/01/2019 Office Visit Internal Medicine Lilibeth Andrade MD [address] [place] [address] Dr [place] [address] [place] [address] [phone] 05/04/2019 Office Visit Cardiology Al Valiente MD [address] [place] [address] [place] [address] [phone] 05/13/2019 Office Visit Internal Medicine Lilibeth Andrade MD [address] [place] [address] Dr Lweis [address] [place] [address] [phone] 05/27/2019 Appointment Cardiac Electrophysiology Outpt-Simi, Pacemaker/Icd 06/08/2019 Office Visit Internal Medicine Lilibeth Andrade MD [address] [place] [address] Dr [place] [address] [place] [address] [phone] 10/27/2019 Office Visit Pulmonary Disease Max Aguiar [address] [place] [address] Dr [place] [address] [place] [address] 112675 12/08/2019 Office Visit Ophthalmology Yariel Tineo MD [address] [place] [address] Health Maintenance Due Date Last Done [...] of this encounter Implants Implanted Type Area Criminal Analyst Device Shelf Model / Identifier Expiration Serial / Date Lot Prolene Mesh MESH Right: Ethicon 12/20/2020 PMSK / Implanted: Qty: 1 on 07/04/2016 by Alfonso Martinez MD at [facility] [employer] PMSK / [id number] Stent-06/24/2016 Implanted: 06/24/2016 (Quantity not on file) documented as of this encounter Procedures Procedure Name Priority Date/Time Associated Diagnosis Comments CONSENT/REFUSAL FOR Routine 02/06/2019 8:25 AM CDT DIAGNOSIS AND TREATMENT documented in this encounter Results Not on filedocumented in this encounter Insurance Payer Benefit Plan / Subscriber ID Effective Phone Address Type Group [facility] [id number] 2017-Pre [phone] [address] HEALTH CHOICE HEALTH CHOICE sent [phone] [place] [address] BEACON BEACON [id number] 2016-Pre [phone] [facility] sent [phone] [facility] , [address] [place] [address] documented as of this encounter Advance Directives Name Relationship Healthcare Agent Communication Relationship Keaton Nelson Spouse Primary healthcare agent [email or web address] Elisabeth Soliz Sibling First alternate healthcare [phone] agent (Mobile)
--- OUTSIDE RECORDS SUMMARY | 2019-05-11 00:46 | XMS REPORT | Summary of Care ---
:1970 Author Organization [facility] Address [address] [place] [address] Care Team Providers Name Role Phone Lilibeth Andrade MD Primary Care Provider Libby Espinoza RN Unavailable Unavailable Al Valiente MD Unavailable Junito Quezada MD Unavailable Karena Anand MANAGER DIVISION Unavailable Unavailable Tito Kirkpatrick Unavailable Reason for Visit Reason Comments LAB Auth/Cert Status Reason Specialty Diagnoses / Referred By Referred To Procedures Contact Contact Clinical Medical Diagnoses Calculus of kidney Hypokalemia Chronic diastolic (congestive) heart failure Type 2 diabetes mellitus without complications Idiopathic gout, unspecified site Iron deficiency Vitamin B deficiency, unspecified Adc Lab Laboratory Vitamin D deficiency, unspecified Calculus of kidney Familial hypercholesterolemia Gastro-esophageal reflux disease without esophagitis Atherosclerotic heart disease of [place] coronary artery without angina pectoris [address] (severe) obesity due to excess calories Hypo-osmolality and hyponatremia Hyperaldosteronism, unspecified Abdominal aortic aneurysm, without rupture Atherosclerosis of aorta Hepatomegaly with splenomegaly, not elsewhere classified Hospital Dr Leal of kidney, [place], [place] Procedures CBC CMP MAGNESIUM URIC ACID BNP UA W/ REFLEX URINE MICROSCOPY URINE MICRO ALBUMIN VITAMIN B1,WHOLE BLOOD VITAMIN B6, PLASMA VITAMIN B12 VITAMIN D, 25-OH FOLATE HOMOCYSTIENE HIGH SENSITIVITY CPR ZINC,SERUM IRON [id number] TOTAL IRON FERRITIN SERUM Encounter Details Date Type Department Care Team Description 02/06/2019 Consulting Psychologist Visit [facility] Lilibeth Andrade MD [address] [place] [address] [place] [address] [phone] Hypouricemia (Primary Dx); Phlebotomy 1, [facility] Lab Need for prophylactic chemotherapy; Lab-[place] Chronic diastolic congestive heart failure [address] [place] [phone] Allergies Active Allergy Reactions Severity Noted Date [...] times daily as needed for Constipation. Insulin [place], Use as directed, 400 Each 1 [...] Overview: Added automatically from request for surgery [id number] Syncope 04/01/2017 Chest pain, rule out acute [...] Chest pain 06/12/2016 Coronary artery disease involving [place] coronary artery of [place] heart 06/12 with angina pectoris [place] (myocardial infarction) 06/12/2016 Type 2 diabetes mellitus [...] Cardiology Robert Adkins MD [address] [id number] [place] [address] [phone] 02/23/2019 Office Visit Internal Medicine Lilibeth Andrade MD [address] [place] [address] Dr [place] [address] [place] [address] [phone] 02/24/2019 Office Visit Endocrinology Diabetes & JonesZhen MD [address] [phone] 02/26/2019 Nurse Visit Anti-coagulation Clinic Nurse, Vtc Anticoag 03/24/2019 Office Visit Gastroenterology Ioana Mccarty MD [address] [place] [address] 333603 04/01/2019 Office Visit Internal Medicine Lilibeth Andrade MD [address] [place] [address] Dr [place] [address] [place] [address] [phone] 05/04/2019 Office Visit Cardiology Al Valiente MD [address] [place] [address] [address] [place] [address] [phone] 05/13/2019 Office Visit Internal Medicine Lilibeth Andrade MD [address] [place] [address] Dr [place] [address] [place] [address] [phone] 05/27/2019 Appointment Cardiac Electrophysiology Outpt-Simi, Pacemaker/Icd 06/08/2019 Office Visit Internal Medicine Lilibeth Andrade MD [address] [place] [address] Dr [place] [address] [place] [address] [phone] 10/27/2019 Office Visit Pulmonary Disease Max Aguiar [address] [place] [address] Dr [place] [address] [place] [address] [phone] 12/08/2019 Office Visit Ophthalmology Yariel Tineo MD [address] [place] [address] Name Type Priority Associated Diagnoses Date/Time COMP. METABOLIC PANEL LAB Routine Hypouricemia 02/06/2019 9:01 AM ([id number]) Need for prophylactic CDT chemotherapy URIC ACID LAB Routine Hypouricemia 02/06/2019 9:01 AM Need for prophylactic CDT chemotherapy N-TERMINAL PRO-BNP LAB Routine Hypouricemia 02/06/2019 9:01 AM Need for prophylactic CDT chemotherapy URINE CULTURE LAB Routine Hypouricemia 02/06/2019 9:01 AM Need for prophylactic CDT chemotherapy MICROALBUMIN URINE LAB Routine Hypouricemia 02/06/2019 9:01 AM Need for prophylactic CDT chemotherapy CREATININE, URINE RANDOM LAB Routine Hypouricemia 02/06/2019 9:01 AM Need for prophylactic CDT chemotherapy MAGNESIUM LAB Routine Chronic diastolic 02/06/2019 9:01 AM congestive heart failure CDT Health Maintenance Due Date Last Done Comments [...] of this encounter Implants Implanted Type Area Elementary Substitute Teacher Device Shelf Model / Identifier Expiration Serial / Date Lot Prolene Mesh MESH Right: Ethicon 12/20/2020 PMSK / Implanted: Qty: 1 on 07/04/2016 by Alfonso Martinez MD at [facility] [employer] PMSK / [id number] Stent-06/24/2016 Implanted: 06/24/2016 (Quantity not on file) documented as of this encounter Procedures Procedure Name Priority Date/Time Associated Diagnosis Comments CBC WITH DIFFERENTIAL Routine 02/06/2019 9:01 Hypouricemia Results for this AM CDT Need for procedure are in prophylactic the results chemotherapy section. URINALYSIS Routine 02/06/2019 9:01 Hypouricemia Results for this AM CDT Need for procedure are in prophylactic the results chemotherapy section. CBC WITH DIFF Routine 02/06/2019 9:01 Hypouricemia Results for this AM CDT Need for procedure are in prophylactic the results chemotherapy section. documented in this encounter Results CBC WITH DIFFERENTIAL (02/06/2019 9:01 AM CDT) WBC 9.79 4.20 - 10.70 [facility] 10*3/L HOSPITAL LAB[facility] RBC 5.17 4.26 - 5.52 [facility] 10*6/L HOS[facility]ITAL [facility] HGB 12.7 12.2 - 16.4 [facility] g/dL HOSPITAL LAB[facility] HCT 39.0 38.4 - 49.3 % [facility] MCV 75.4 (L) 81.7 - 95.6 fL [facility] MCH 24.6 (L) 26.1 - 32.7 pg [facility] MCHC 32.6 31.2 - 35.0 [facility] g/dL HOSPITAL LAB[facility] RDW-SD 44.1 38.5 - 51.6 fL [facility] RDW-CV 16.6 (H) 12.1 - 15.4 % [facility] PLT 307 150 - 328 [facility] 10*3/L HOSPITAL LAB[facility] MPV 9.3 (L) 9.8 - 13.0 fL [facility] NRBC/100 WBC 0.0 0.0 - 10.0 /100 [facility] WBCs [facility] LAB[facility] NRBC x10^3 <0.01 10*3/L [facility] GRAN MAT (NEUT) % 72.1 % [facility] IMM GRAN % 0.60 % [facility] LYMPH % 18.2 % [facility] MONO % 7.5 % [facility] EOS % 1.0 % [facility] BASO % 0.6 % [facility] GRAN MAT x10^3(ANC) 7.06 (H) 1.99 - 6.95 [facility] 10*3/uL HOSPITAL LAB[facility] IMM GRAN x10^3 0.06 0.00 - 0.06 [facility] 10*3/uL HOSPITAL LAB[facility] LYMPH x10^3 1.78 1.09 - 3.23 [facility] 10*3/uL H[facility]ITAL LAB[facility] MONO x10^3 0.73 0.36 - 1.02 [facility] 10*3/uL HOSPITAL LAB[facility] EOS x10^3 0.10 0.06 - 0.53 [facility] 10*3/uL H[facility]PITAL LAB[facility] BASO x10^3 0.06 0.01 - 0.09 [facility] 10*3/uL HOSPITAL LABOR[facility]ORY Specimen Blood Performing Organization Address City/State/Zipcode Phone Number [facility] CLIA: [id number], [address] [place] [address] URINALYSIS (02/06/2019 9:01 AM CDT) APPEARANCE Clear Clear [facility] COLOR Yellow Yellow [facility] PH 6.5 4.8 - 8.0 [facility] LAB[facility] SP GRAVITY 1.010 1.003 - 1.030 [facility] LABOR[facility]ORY GLU U QUAL 500 mg/dL (A) Negative [facility] BLOOD Negative Negative [facility] KETONES Negative Negative [facility] PROTEIN Negative Negative [facility] UROBILIN 0.2 mg/dL 0-1.0 mg/dL [facility] LAB[facility] BILIRUBIN Negative Negative [facility] NITRITE Negative Negative [facility] LAB[facility]ORY LEUK TRE Negative Negative [facility] LAB[facility] RBC/HPF 0 0 - 3 HPF [facility] WBC/HPF 0 0 - 5 HPF [facility] LAB[facility]ORY BACTERIA Negative Negative [facility] Specimen Urine - URINE, CLEAN CATCH Performing Organization Address City/State/Zipcode Phone Number [facility] CLIA: [id number], [address] [place] [address] documented in this encounter Visit Diagnoses Diagnosis Hypouricemia - Primary Other abnormal blood chemistry Need for prophylactic chemotherapy Need for other prophylactic chemotherapy Chronic diastolic congestive heart failure Chronic diastolic heart failure documented in this encounter Insurance Payer Benefit Plan / Subscriber ID Effective Phone Address Type Group Dates [facility] [employer] [facility] [id number] 2017-Lux [phone] [employer] [phone] [place] [address] (Home) [place] [address] documented as of this encounter Advance Directives Name Relationship Healthcare Agent Communication Relationship Keaton Nelson Spouse Primary healthcare agent Elisabeth Soliz Sibling First alternate healthcare [phone] agent (Mobile)
--- OUTSIDE RECORDS SUMMARY | 2019-05-11 00:46 | XMS REPORT | Summary of Care ---
:1970 Author Organization [facility] Address [address] [place] [address] Care Team Providers Name Role Phone Lilibeth Andrade MD Primary Care Provider Libby Espinoza RN Unavailable Unavailable Al Valiente MD Unavailable Junito Quezada MD Unavailable Karena Anand HEALTH CENTER MANAGER Unavailable Unavailable Tito Kirkpatrick Unavailable Reason for Visit Reason Comments Abnormal Lab Encounter Details Date Type Department Care Team Description 02/08/2019 Telephone [facility] and Sundar Novak MBBS Abnormal Lab Clinics [address] [place] [phone] [place] [address] Allergies Active Allergy Reactions Severity Noted Date [...] as of this encounter (statuses as of 02/08/2019) Medications Medication Sig Dispensed Refills Start Date End Date Status docusate 100 mg Take 1 capsule by 30 capsule 0 07/04/2016 Active capsule mouth 2 (two) times daily as needed for Constipation. 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 [place] (myocardial infarction) 06/12/2016 Type 2 diabetes mellitus without complication 06/12/2016 Essential hypertension 06/12/2016 History of alcohol abuse Overview: Sober for 16 years documented as of this encounter (statuses as of 02/08/2019) Resolved Problems Problem Noted Date Resolved Date Chest pain radiating to arm 08/08/2016 08/19/2016 Abdominal pain 07/19/2016 08/19/2016 History of epidural anesthesia 07/04/2016 08/19/2016 Morbid obesity with body mass index of 50 or higher 06/26/2016 08/19/2016 Obesity (BMI 30-39.9) 06/12/2016 08/19/2016 documented as of this encounter (statuses as of 02/08/2019) Immunizations Name Administration Dates Next Due Td [...] Cardiology Robert Adkins MD [id number] [place] [address] [phone] 02/23/2019 Office Visit Internal Medicine Lilibeth Andrade MD [address] [place] [address] [place] [address] [phone] 02/24/2019 Office Visit Endocrinology Diabetes & JonesZhen MD Metabolism [address] [place], [place] 131323 02/26/2019 Nurse Visit Anti-coagulation Clinic Nurse, Vtc Anticoag 03/24/2019 Office Visit Gastroenterology Ioana Mccarty MD [address] [place] [address] [phone] 04/01/2019 Office Visit Internal Medicine Lilibeth Andrade MD [address] [place] [address] Dr Lewis [address] [place] [address] [phone] 05/04/2019 Office Visit Cardiology Al Valiente MD [address] [place] [address] [place] [address] [phone] 05/13/2019 Office Visit Internal Medicine Lilibeth Andrade MD [address] [place] [address] Dr Lewis [address] [place] [address] [phone] 05/27/2019 Appointment Cardiac Electrophysiology Outpt-Simi, Pacemaker/Icd 06/08/2019 Office Visit Internal Medicine Lilibeth Andrade MD [address] [place] [address] Dr Lewis [address] [place] [address] [phone] 10/27/2019 Office Visit Pulmonary Disease Max Aguiar [address] [place] [address] Dr Lewis [address] [place] [address] [phone] 12/08/2019 Office Visit Ophthalmology Yariel Tineo MD [address] [place] [address] Name Type Priority Associated Diagnoses Order Schedule BASIC METABOLIC PANEL LAB Routine Hypopotassemia 1 Occurrences starting (NA, K, CL, CO2, 02/08/2019 until GLUCOSE, BUN, 02/09/2020 CREATININE, CA) MAGNESIUM LAB Routine Hypopotassemia 1 Occurrences starting 02/08/2019 until 02/09/2020 Health Maintenance Due Date Last Done Comments PNEUMOCOCCAL 0-64 YEARS 1976 COMBINED SERIES (1 of 1 - PPSV23) HgA1C 01/25/2019 07/28/2018, 03/30/2018, 01/11/2018, Additional history exists INFLUENZA VACCINE (#1) 2019 LDL-C 07/28/2019 07/28/2018, 01/11/2018, 12/31/2017, Additional history exists FOOT EXAM 09/23/2019 09/22/2018, 09/22/2018, 04/22/2018, Additional history exists EYE EXAM 11/20/2019 11/19/2018, 11/13/2017 CREATININE (SERUM) 02/07/2020 02/06/2019, 11/26/2018, 11/19/2018, Additional history exists URINE MICROALBUMIN 02/07/2020 02/06/2019, 01/19/2018, 08/20/2016 DTaP,Tdap,and Td Vaccines 06/26/2027 06/26/2017, 03/19/2015 Postponed from (1 - Tdap) 06/27/2017 (Not Indicated) documented as of this encounter Implants Implanted Type Area Training And Development Specialist Device Shelf Model / Identifier Expiration Serial / Date Lot Prolene Mesh MESH Right: Ethicon 12/20/2020 PMSK / Implanted: Qty: 1 on 07/04/2016 by Alfonso Martinez MD at [facility] [employer] PMSK / [id number] Stent-06/24/2016 Implanted: 06/24/2016 (Quantity not on file) documented as of this encounter Results Not on filedocumented in this encounter Visit Diagnoses Diagnosis Hypopotassemia - Primary documented in this encounter Insurance Payer Benefit Plan / Subscriber ID Effective Phone Address Type Group Dates [facility] [id number] 2017-Pre [phone] [address] HMO HEALTH CHOICE HEALTH CHOICE sent [phone] [place] [address] [employer] [id number] 2016-Pre [phone] [facility] sent [phone] [facility] , [address] [place] [address] documented as of this encounter Advance Directives Name Relationship Healthcare Agent Communication Relationship Keaton Nelson Spouse Primary healthcare agent Elisabeth Soliz Sibling [employer] [phone] agent (Mobile)
--- OUTSIDE RECORDS SUMMARY | 2019-05-11 00:47 | XMS REPORT | Summary of Care ---
:1970 Author Organization [facility] Address [address] [place] [address] Care Team Providers Name Role Phone Lilibeth Andrade MD Primary Care Provider Libby Espinoza RN Unavailable Unavailable Al Valiente MD Unavailable Junito Quezada MD Unavailable Karena Anand SLIVER MACHINE OPERATOR Unavailable Unavailable Tito Kirkpatrick Unavailable Reason for Visit Reason Comments Assessment Encounter Details Date Type Department Care Team Description 02/09/2019 Telephone [facility] Cardiology, Robert Adkins, Assessment [facility] [address] [place] [address] [address] [place] [address] [id number] [place] [address] [place], [place] [id number] Allergies Active Allergy Reactions Severity Noted Date [...] as of this encounter (statuses as of 02/09/2019) Medications Medication Sig Dispensed Refills Start Date End Date Status docusate 100 mg Take 1 capsule by 30 capsule 0 07/04/2016 Active capsule mouth 2 (two) times daily as needed for Constipation. Insulin [place], Use as directed, 400 Each 1 09/19/2017 [...] as of this encounter (statuses as of 02/09/2019) Active Problems Problem Noted Date Bradycardia 10/06/2018 [...] Overview: Added automatically from request for surgery [id number] Syncope 04/01/2017 Chest pain, rule out acute [...] Chest pain 06/12/2016 Coronary artery disease involving tolowa dee-ni' coronary artery of tolowa dee-ni' heart 06/12 with angina pectoris [place] (myocardial infarction) 06/12/2016 Type 2 diabetes mellitus without complication 06/12/2016 Essential hypertension 06/12/2016 History of alcohol abuse Overview: Sober for 16 years documented as of this encounter (statuses as of 02/09/2019) Resolved Problems Problem Noted Date Resolved Date Chest pain radiating to arm 08/08/2016 08/19/2016 Abdominal pain 07/19/2016 08/19/2016 History of epidural anesthesia 07/04/2016 08/19/2016 Morbid obesity with body mass index of 50 or higher 06/26/2016 08/19/2016 Obesity (BMI 30-39.9) 06/12/2016 08/19/2016 documented as of this encounter (statuses as of 02/09/2019) Immunizations Name Administration Dates Next Due Td [...] Cardiology Robert Adkins MD [id number] [place], [place] [phone] 02/23/2019 Office Visit Internal Medicine Lilibeth Andrade MD [address] [place] [address] Dr [address] [place], [place] [phone] 02/24/2019 Office Visit Endocrinology Diabetes & Zhen Jones MD Metabolism [address] [place] [address] [phone] 02/26/2019 Nurse Visit Anti-coagulation Clinic Nurse, Vtc Anticoag 03/24/2019 Office Visit Gastroenterology Ioana Mccarty MD [address] [place] [address] [phone] 04/01/2019 Office Visit Internal Medicine Lilibeth Andrade MD [address] [place] [address] Dr Lewis [address] [place] [address] [phone] 05/04/2019 Office Visit Cardiology Al Valiente MD [address] [place] [address] [phone] 05/13/2019 Office Visit Internal Medicine Lilibeth Andrade MD [address] [place] [address] Dr Lewis [address] [place] [address] [phone] 05/27/2019 Appointment Cardiac Electrophysiology Outpt-Simi, Pacemaker/Icd 06/08/2019 Office Visit Internal Medicine Lilibeth Andrade MD [address] [place] [address] Dr Lewis [address] [place] [address] [phone] 10/27/2019 Office Visit Pulmonary Disease Max Aguiar [address] [place] [address] Dr [address] [place] [address] [phone] 12/08/2019 Office Visit Ophthalmology Yariel Tineo MD [address] [place] [address] Health Maintenance Due Date Last Done [...] of this encounter Implants Implanted Type Area Solidworks Mechanical Designer Device Shelf Model / Identifier Expiration Serial / Date Lot Prolene Mesh MESH Right: Ethicon 12/20/2020 PMSK / Implanted: Qty: 1 on 07/04/2016 by Alfonso Martinez MD at [facility] [employer] PMSK / [id number] Stent-06/24/2016 Implanted: 06/24/2016 (Quantity not on file) documented as of this encounter Results Not on filedocumented in this encounter Insurance Payer Benefit Plan / Subscriber ID Effective Phone Address Type Group [facility] [id number] 2017-Pre [phone] [address] HMO HEALTH CHOICE HEALTH CHOICE sent [phone] [place] [address] [employer]ON [id number] 2016-Pre [phone] [facility] sent [phone] [facility] , [address] [place] [address] documented as of this encounter Advance Directives Name Relationship Healthcare Agent Communication Relationship Keaton Nelson Spouse Primary healthcare agent [email or web address] Elisabeth Soliz Sibling First alternate healthcare [phone] agent (Mobile)
--- OUTSIDE RECORDS SUMMARY | 2019-05-11 00:48 | XMS REPORT | Summary of Care ---
:1970 Author Organization [facility] Address [address] [place] [address] Care Team Providers Name Role Phone Lilibeth Andrade MD Primary Care Provider Libby Espinoza RN Unavailable Unavailable Al Valiente MD Unavailable Junito Quezada MD Unavailable Karena Anand LIGHTING FIXTURES DECORATOR Unavailable Unavailable Tito Kirkpatrick Unavailable Reason for Visit Reason Comments Abnormal Lab K Fatigue Auth/Cert Status Reason Specialty Diagnoses / Referred By Referred To Procedures Contact Contact Emergency Medicine Diagnoses LOW POTASSUIM FEELS WEAK [facility] Emergency Dept [address] [place] [address] [place] [address] Encounter Details Date Type Department Care Team Description 02/09/2019 Emergency ADC-Emergency YarimaKurt S, Fatigue, unspecified type (Primary Dx); Department Hypokalemia; [address] [place] [address] 301 [facility] Uncontrolled type 2 diabetes [place] [address] [id number] [place] [address] Allergies Active Allergy Reactions Severity Noted [...] times daily as needed for Constipation. Insulin [place], Use as directed, 400 Each 1 09/19/2017 Active Disposable, (RELION QIDave, DX:E11.9 PEN NEEDLES) 32 gauge x 5/32" [...] Overview: Added automatically from request for surgery [id number] Syncope 04/01/2017 Chest pain, rule out acute [...] Chest pain 06/12/2016 Coronary artery disease involving grindstone coronary artery of grindstone heart 06/12 with angina pectoris [place] (myocardial infarction) 06/12/2016 Type 2 diabetes mellitus [...] Sign Reading Time Taken Comments Blood Pressure 115/57 02/09/2019 11:00 AM CDT Pulse 73 02/09/2019 11:00 AM CDT Temperature 36.3 C (97.3 F) 02/09/2019 9:39 AM CDT Respiratory Rate 12 02/09/2019 11:00 AM CDT Oxygen Saturation 96% 02/09/2019 11:00 AM CDT Inhaled Oxygen Concentration - - Weight 130.6 kg (288 lb) 02/09/2019 9:39 AM CDT Height 177.8 cm (5' 10") 02/09/2019 9:39 AM CDT Body Mass Index 41.32 02/09/2019 9:39 AM CDT documented in this encounter Discharge Instructions Kurt Fonseca MD - 02/09/2019 DIAGNOSIS Diagnoses that have been ruled out: None Diagnoses that are still under consideration: None Final diagnoses: Fatigue, unspecified type Hypokalemia Uncontrolled type 2 diabetes mellitus with hyperglycemia NO LIFE-THREATENING FINDINGS ON TODAY'S EXAM. PROCEDURES IN THE ER TODAY: Orders Placed This Encounter Procedures CBC WITH DIFF COMP. METABOLIC PANEL (64547) MAGNESIUM CBC WITH DIFFERENTIAL MEDICATIONS ADMINISTERED IN THE ER TODAY AND DISCHARGE MEDICATIONS: Orders Placed This Encounter Medications KCL (KLOR-CON M20) tablet 40 mEq FOLLOW-UP RECOMMENDATIONS: PLEASE KEEP YOUR APPOINTMENT WITH DR ADKINS, CARDIOLOGY FOR TODAY SCHEDULED documented in this encounter Plan of Treatment Date Type Specialty Care Team Description 02/09/2019 Office Visit Cardiology Robert Adkins MD [id number] [place], [place] 201485 02/23/2019 Office Visit Internal Medicine Lilibeth Andrade MD [address] [place] [address] Dr Lewis [address] [place] [address] [phone] 02/24/2019 Office Visit Endocrinology Diabetes & Zhen Jones MD Metabolism [address] [place] [address] [phone] 02/26/2019 Nurse Visit Anti-coagulation Clinic Nurse, Azc Anticoag 03/24/2019 Office Visit Gastroenterology Ioana Mccarty MD [address] [place] [address] [phone] 04/01/2019 Office Visit Internal Medicine Lilibeth Andrade MD [address] [place] [address] Dr Lewis [address] [place] [address] [phone] 05/04/2019 Office Visit Cardiology Al Valiente MD [address] [place] [address] [address] [place], [place] 888215 05/13/2019 Office Visit Internal Medicine Lilibeth Andrade MD [address] [place] [address] Dr Lewis [address] [place] [address] [phone] 05/27/2019 Appointment Cardiac Electrophysiology Outpt-Simi, Pacemaker/Icd 06/08/2019 Office Visit Internal Medicine Lilibeth Andrade MD [address] [place] [address] Dr Lewis [address] [place] [address] [phone] 10/27/2019 Office Visit Pulmonary Disease Max Aguiar [address] [place] [address] Dr Lewis [address] [place] [address] [phone] 12/08/2019 Office Visit Ophthalmology Yariel Tineo MD [address] [place] [address] Health Maintenance Due Date Last Done [...] of this encounter Implants Implanted Type Area Seismograph Computer Device Shelf Model / Identifier Expiration Serial / Date Lot Prolene Mesh MESH Right: Ethicon 12/20/2020 PMSK / Implanted: Qty: 1 on 07/04/2016 by Alfonso Martinez MD at [facility] [employer] PMSK / [id number] Stent-06/24/2016 Implanted: 06/24/2016 (Quantity not on file) documented as of this encounter Procedures Procedure Name Priority Date/Time Associated Diagnosis Comments CBC WITH DIFFERENTIAL STAT 02/09/2019 9:51 Fatigue, unspecified Results for this AM CDT type procedure are in the results section. CBC WITH DIFF STAT 02/09/2019 9:51 Fatigue, unspecified Results for this AM CDT type procedure are in the results section. COMP. METABOLIC PANEL STAT 02/09/2019 9:51 Fatigue, unspecified Results for this ([id number]) AM CDT type procedure are in the results section. MAGNESIUM STAT 02/09/2019 9:51 Fatigue, unspecified Results for this AM CDT type procedure are in the results section. EKG-12 LEAD Routine 02/09/2019 9:47 AM CDT CONSENT/REFUSAL FOR Routine 02/09/2019 9:27 DIAGNOSIS AND AM CDT TREATMENT documented in this encounter Results CBC WITH DIFFERENTIAL (02/09/2019 9:51 AM CDT) WBC 11.34 (H) 4.20 - 10.70 [facility] 10*3/L [facility] RBC 5.59 (H) 4.26 - 5.52 [facility] 10*6/L [facility] HGB 13.6 12.2 - 16.4 [facility] g/dL [facility] HCT 40.9 38.4 - 49.3 % [facility] MCV 73.2 (L) 81.7 - 95.6 fL [facility] MCH 24.3 (L) 26.1 - 32.7 pg [facility] MCHC 33.3 31.2 - 35.0 [facility] g/dL [facility] RDW-SD 42.9 38.5 - 51.6 fL [facility] RDW-CV 17.5 (H) 12.1 - 15.4 % [facility] PLT 330 (H) 150 - 328 [facility] 10*3/L [facility] MPV 9.5 (L) 9.8 - 13.0 fL [facility] NRBC/100 WBC 0.0 0.0 - 10.0 /100 [facility] WBCs [facility] NRBC x10^3 <0.01 10*3/L [facility] GRAN MAT (NEUT) % 70.7 % [facility] IMM GRAN % 0.50 % [facility] LYMPH % 20.1 % [facility] MONO % 7.4 % [facility] EOS % 0.9 % [facility] BASO % 0.4 % [facility] GRAN MAT x10^3(ANC) 8.01 (H) 1.99 - 6.95 [facility] 10*3/uL [facility]ITAL [facility] IMM GRAN x10^3 0.06 0.00 - 0.06 [facility] 10*3/uL [facility] LYMPH x10^3 2.28 1.09 - 3.23 [facility] 10*3/uL [facility] MONO x10^3 0.84 0.36 - 1.02 [facility] 10*3/uL [facility] EOS x10^3 0.10 0.06 - 0.53 [facility] 10*3/uL [facility] BASO x10^3 0.05 0.01 - 0.09 [facility] 10*3/uL [facility] Specimen Blood - ARM, RIGHT Performing Organization Address [facility] Phone Number [facility] CLIA: [id number], [address] [place] [address] MAGNESIUM (02/09/2019 9:51 AM CDT) MAGNESIUM 2.0 1.7 - 2.4 mg/dL [facility] Specimen Blood - ARM, RIGHT Performing Organization Address [facility] Hospitalcome Phone Number [facility] CLIA: [id number], [address] [place] [address] COMP. METABOLIC PANEL ([id number]) (02/09/2019 9:51 AM CDT) NA 136 135 - 145 [facility] mmol/L [facility] K 3.2 (L) 3.5 - 5.0 [facility] mmol/L [facility] CL 91 (L) 98 - 108 mmol/L [facility] CO2 TOTAL 33 (H) 23 - 31 mmol/L [facility] AGAP 12 2 - 16 [facility] BUN 23 7 - 23 mg/dL [facility] GLUCOSE 248 (H) 70 - 110 mg/dL [facility] CREATININE 1.03 0.60 - 1.25 [facility] mg/dL [facility] TOTAL BILI 0.5 0.1 - 1.1 mg/dL [facility] CALCIUM 9.2 8.6 - 10.6 [facility] mg/dL [facility] T PROTEIN 8.5 (H) 6.3 - 8.2 g/dL [facility] ALBUMIN 4.4 3.5 - 5.0 g/dL [facility] ALK PHOS 111 34 - 122 U/L [facility] ALT(SGPT) 24 9 - 51 U/L [facility] AST(SGOT) 46 (H) 13 - 40 U/L [facility] eGFR Calculation 76.8 mL/min/1.73m2 [facility] ([facility]ATORY [place]) eGFR Calculation 93.0 mL/min/1.73m2 [facility] () [facility] Specimen Blood - ARM, RIGHT Narrative Performed At Association of Glomerular Filtration Rate (GFR) [facility] and Staging of Kidney Disease* [...] tests). Performing Organization Address City/State/Zipcode Phone Number [facility] CLIA: [id number], [address] [place] [address] documented in this encounter Visit Diagnoses Diagnosis Fatigue, unspecified type - Primary Hypokalemia Hypopotassemia Uncontrolled type 2 diabetes mellitus with hyperglycemia documented in this encounter Administered Medications Medication Order MAR Action Action Date Dose Rate Site KCL (KLOR-CON M20) tablet 40 mEq Given 02/09/2019 10:54 AM CDT 40 mEq 40 mEq, Oral, ONCE, 1 dose, 02/09/19 at 1145, LIVIA documented in this encounter Insurance Payer Benefit Plan / Subscriber ID Effective Phone Address Type Group Dates [facility] [id number] 2017-Lux [phone] [address] revoPTO [employer] [facility] 86 [id number] [place] [address] (Home) [place] [address] documented as of this encounter Advance Directives Name Relationship Healthcare Agent Communication Relationship Keaton Nelson Spouse Primary healthcare agent Elisabeth Soliz Sibling First alternate healthcare [phone] agent (Mobile)
--- OUTSIDE RECORDS SUMMARY | 2019-05-11 00:49 | XMS REPORT | Summary of Care ---
:1970 Author Organization [facility] Address [address] [place] [address] Care Team Providers Name Role Phone Lilibeth Andrade MD Primary Care Provider Libby Espinoza RN Unavailable Unavailable Al Valiente MD Unavailable Junito Quezada MD Unavailable Karena AnandP Unavailable Unavailable Tito Kirkpatrick Unavailable Reason for Visit Reason Comments Follow-up Encounter Details Date Type Department Care Team Description 02/09/2019 Office Visit [facility] Robert Adkins Hypopotassemia ( Primary Dx); CardiologyCatherine MD Chronic diastolic CHF (congestive heart failure); [address] Coronary artery disease of [place] artery of [place] heart with stable angina pectoris [address] [place], [place] [id number] [address] [place], [place] [phone] Allergies Active Allergy Reactions Severity Noted Date [...] times daily as needed for Constipation. Insulin [place], Use as directed, 400 Each 1 09/19/2017 Active Disposable, (RELION THOMAS, DX:E11.9 PEN NEEDLES) 32 gauge x 32" Ndle Diclofenac Sodium 1 % Take 2-4 [...] Overview: Added automatically from request for surgery [id number] Syncope 04/01/2017 Chest pain, rule out acute [...] Chest pain 06/12/2016 Coronary artery disease involving [place] coronary artery of [place] heart 06/12 with angina pectoris [place] (myocardial infarction) 06/12/2016 Type 2 diabetes mellitus [...] Sign Reading Time Taken Comments Blood Pressure 114/78 02/09/2019 3:02 PM CDT Pulse 89 02/09/2019 3:01 PM CDT Temperature - - Respiratory Rate - - Oxygen Saturation 95% 02/09/2019 3:01 PM CDT Inhaled Oxygen Concentration - - Weight 133.1 kg (293 lb 8 oz) 02/09/2019 3:01 PM CDT Height 177.8 cm (5' 10") 02/09/2019 3:01 PM CDT Body Mass Index 42.11 02/09/2019 3:01 PM CDT documented in this encounter Progress Notes Ugwu PATRICIA Kwok - 02/09/2019 3:00 PM CDT HEART FAILURE CLINIC NOTE Reason for Referral/Presenting Complaint: HFpEF History of Present Illness: This is a 48 years old male with PMH HFpEF, DM, HTN, obesity, GREGORIO, pAfib, CAD STEMI in 11/2015 treated with RCA PCI, PE on coumadin and symptomatic bradycardia s/p pacemaker placement 10/07 presents forER follow up. Pt is here today for a routine follow up visit. He is complaining of exertional fatigue, dizziness and light headedness that appears to be orthostatic. He also have a sense of bloating and has noted increase in eight by 10 pounds over the last few weeks. He has chronic orthopnea which is unchanged. Yesterday, recent lab with K of 3.0 was noted and patient was instructed to double the dose of his K. Overnight however, he had a sensation of palpitation and throat discomfort as if his device was trying to pace him. He was sent to the ER and repeat K was 3.2. He was given K 40 meq and discharged. Recent stress with fixed apical defect Review of Systems: General: (-) fever, (-) chills, (-) weight change, (-) dizziness, (+) fatigue Skin: (-) rash HEENT: (-) headache, (-) change in vision Neck: (-) difficulty swallowing Heme: negative Resp: (-) cough, (+) dyspnea on exertion Cardio: (+) chest pain, (+) palpitations, (-) syncope GI: (-) vomiting, (-) diarrhea : negative Endo: (+) diabetes, (-) thyroid disease Neuro: (-) numbness, (-) tingling, (+) weakness Back: (-) pain AKSHAT: (-) muscle pain, (-) claudication Psych: (+) anxiety, (-) depression Past Medical History: Past Medical History: Diagnosis Date AAA (abdominal aortic aneurysm) 3 cm Anxiety CHF (congestive heart failure) 2-liter fluid restriction; Dr. 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 smoking history. will need repeat in 6- 12 months. IL (myocardial infarction) November 2015, 1 stent in RCA Microcytic anemia low MCV 2017 Right bundle branch block Uveitis Current Medications: Current Outpatient Medications Medication Sig Dispense Refill ARIPiprazole 10 mg tablet Take 1 tablet by mouth daily. 30 tablet 1 desvenlafaxine succinate (PRISTIQ) 100 mg 24 hr tablet Take 2 tablets by mouth daily. 60 tablet 1 Cholecalciferol, Vitamin D3, (VITAMIN D3) 2,000 unit tablet Take by mouth. hydrocortisone 2.5 % cream Apply to affected area(s) 2 (two) times daily. 30 g 3 polyethylene glycol (MIRALAX) 17 gram/dose powder Take 17 g by mouth daily. 238 g 3 clonazePAM 1 mg tablet Take 1 pill PO in the AM, 1 PO in the afternoon, 1 pill PO in the evening. May take additional 1 pill as needed acute anxiety. 120 tablet 1 testosterone (ANDROGEL) 20.25 mg/1.25 gram (1.62 %) gel pump Apply 2 Pumps to area(s) daily. 75 g 3 pantoprazole 40 mg EC tablet Take 1 tablet by mouth 2 (two) times daily. 90 tablet 3 dulaglutide (TRULICITY) 0.75 mg/0.5 mL PnIj inject 0.75 mg under the skin weekly. 4 Syringe 3 cholestyramine 4 gram powder Take 1 Packet by mouth 3 (three) times daily with meals. 1 Can 1 Ranolazine 1,000 mg tablet Take 1 tablet by mouth 2 (two) times daily. 60 tablet 4 proMETHazine 25 mg tablet Take 1 tablet by mouth every 6 (six) hours as needed for Nausea and Vomiting (N/V). 30 tablet 3 KCL 20 mEq tablet Take 3 tablets by mouth 2 (two) times daily. 180 tablet 2 ferrous sulfate (IRON) 325 mg (65 mg iron) tablet Take 1 tablet by mouth 3 ( three) times daily with meals. 270 tablet 3 aMILoride 5 mg tablet Take 1 tablet by mouth 2 (two) times daily. 60 tablet 2 warfarin 10 mg tablet Take as directed by [facility] based on INR results. 60 tablet 3 warfarin 7.5 mg tablet Take as directed by [facility] based on INR results. 90 tablet 3 furosemide (LASIX) 80 mg tablet Take 80 mg by mouth every morning and evening. atorvastatin (LIPITOR) 40 mg tablet Take 1 tablet by mouth at bedtime. 90 tablet 3 metformin ER 500 mg 24 hr tablet Take 1 tablet by mouth 2 (two) times daily. 270 tablet 3 metOLazone 2.5 mg tablet Once daily PRN for weight gain > 3 lbs 30 tablet 2 cyanocobalamin (VITAMIN B-12) 1,000 mcg/mL injection Inject 1ml weekly for 3 months, then every other week for 3 months, then monthly. 12 mL 3 clopidogrel (PLAVIX) 75 mg tablet Take 1 tablet by mouth daily. 90 tablet 3 allopurinol 300 mg tablet Take 1 tablet by mouth daily. 30 tablet 6 buprenorphine-naloxone (SUBOXONE) 8-[address] 8 mg under the tongue every 12 (twelve) hours as needed for Pain (scale 7-10). methocarbamol 750 mg tablet Take 750 mg by mouth 2 (two) times daily. foLIC acid 1 mg tablet Take 1 tablet by mouth daily. 90 tablet 3 magnesium oxide 400 mg magnesium Tab Take 1 tablet by mouth daily. (Patient taking differently: Take 2 tablets by mouth daily.) 90 tablet 3 nitroglycerin (NITROSTAT) 0.[address] 1 tablet under the tongue every 5 (five) minutes as needed for Chest pain. 1 Bottle 1 pyridoxine HCl, vitamin B6, (VITAMIN B-6 ORAL) Take by mouth. Diclofenac Sodium 1 % gel Take 2-4 grams three times a day as needed for pain 100 g 3 Insulin [place], Disposable, (RELION PEN NEEDLES) 32 gauge x 5/32" Ndle Use as directed, QID, DX:E11.9 400 Each 1 docusate 100 mg capsule Take 1 capsule by mouth 2 (two) times daily as needed for Constipation. (Patient taking differently: Take 100 mg by mouth daily.) 30 capsule 0 No current facility-administered medications for this visit. Social History: Social History Socioeconomic History Marital status: Spouse name: Not on file Number of children: Not on file Years of education: Not on file Highest education level: Not on file Occupational History Occupation: Retired Social Needs Financial resource strain: Not on file Food insecurity: Worry: Not on file Inability: Not on file Transportation needs: Medical: Not on file Non-medical: Not on file Tobacco Use Smoking status: Former Smoker Packs/day: 1.00 Years: 30.00 Pack years: 30.00 Types: Cigarettes Last attempt to quit: 06/26/2014 Years since quittin.6 Smokeless tobacco: Never Used Tobacco comment: quit in 2013 Substance and Sexual Activity Alcohol use: No Alcohol/week: 0.0 oz Drug use: No Sexual activity: Yes Partners: Female Lifestyle Physical activity: Days per week: Not on file Minutes per session: Not on file Stress: Not on file Relationships Social connections: Talks on phone: Not on file Gets together: Not on file Attends religion service: Not on file Active member of club or organization: Not on file Attends meetings of clubs or organizations: Not on file Relationship status: Not on file Intimate partner violence: Fear of current or ex partner: Not on file Emotionally abused: Not on file Physically abused: Not on file Forced sexual activity: Not on file Other Topics Concern Not on file Social History Narrative Disability due to heart attach and chronic back pain. No walker. Lives at home with . Family History Family History Problem Relation Age of Onset Hypertension Father High cholesterol Father Asthma Father CHF (congestive heart failure) Father COPD (chronic obstructive pulmonary disease) Father Leukemia Father Hypertension Mother High cholesterol Mother Cancer Paternal Grandmother unsure which kind Leukemia Maternal Uncle Physical Examination: BP 114/78 (BP Location: Left arm, Patient Position: Sitting, BP CUFF SIZE: Adult Large) | Pulse 89| Ht 5' 10" (1.778 m) | Wt 293 lb 8 oz (133.1 kg) | SpO2 95% | BMI 42.11 kg/m Constitutional: awake and alert, not in any obvious distress ENT: normocephalic atraumatic, supple, no lymphadenopathy, no bruits Lungs: clear to auscultation bilaterally Cardiovascular: S1, S2 normal, regular; no murmurs, rubs or gallops GI: soft; non-tender; + distended; normoactive bowel sounds : not examined Musculoskeletal: Extremities: no clubbing, cyanosis. Bilateral LE edema +1 Skin: no rashes Neuro: no focal deficits Cardiovascular testing: EKG: Normal sinus rhythm. RBBB. LAD. Inferior and lateral infarct, age undetermined. Echocardiogram 10/06/2018: Interpretation Summary A two-dimensional transthoracic echocardiogram with M-mode and Doppler was performed. The study was technically difficult. Compared to prior study, there is no significant change. Left ventricular systolic function is normal. Ejection Fraction=55-60%. Diastolic dysfunction. Contrast was injected, however poor injection was noticed. Cant r/o PACHECO Ruelas MD Cardiac Cath: 11/2015--STEMI--RCA PCI with Promus 3.5 x 24 mm-----LAD 20%, LCx 40%, RCA 100% 11/2016--UTMB LM: mild LI LAD: mild LI, D1 small 50%, D2-3 medium size mild LI LCx: proximal eccentric 40-50% (FFR of the pLCx not significant-baseline 1.0 and peak with 140 mcg/kg/min infusion 0.91), mid/distal LCx small mild LI, Om1 medium size mild LI RCA: large dominant vessel, proximal ectasia moderate calcification mild LI, mid stent patent, distal mild LI, RPDA mild LI, RPLB1-2-3 mild LI A/P; -Moderate pLCx stenosis, FFR not significant, medical rx recommended. -mRCA stent patent. -Aggressive medical rx for CAD. [facility] 12/2017--No significant stenosis. Nuclear stress test--01/05/2019 IMPRESSION Left ventricular inferior wall has a moderate and severe deficit that is fixed, appears a scar from prior myocardial infarct. There is no reversible defect to suspect ischemia. Normal left ventricular function. Assessment/Plan: 48 years old male with PMH HFpEF, DM, HTN, obesity, GREGORIO, pAfib, CAD STEMI in 2015 treated with RCAPCI, PE on coumadin and symptomatic bradycardia s/p pacemaker placement 10/07 HFpEF, NYHA class III, stage C: - Euvolemic on exam. - On lasix 80 mg BID and Amiloride. - PRN metolazone. - No changes will be made this time and will continue the same regimen for now -will try to see if he will qualify for cardiac rehab again. If not possible, He was given ideas about appropriate cardiac targeted exercises which he can initiate at home CAD s/p RCA PCI 11/2015 - Continues to have fatigue and SCHILLING but no chest pain. Recent stress test negative - Several LHCs showed no significant stenosis. - Continue with plavix/lipitor. - Continue with ranexa 1000 mg BID. - Imdur was stopped previously due to low BP -cardiac rehabilitation as discussed above Hypokalemia -He states taking k 40 meq TID -advised to increase to 60 TID and we will recheck K on friday GREGORIO: -On C-PAP. Bradycardia s/p pacemaker -recent device interrogation reviewed PE on warfarin: - Continue current warfarin dosing. RTC 3 months Patient was seen and discussed with Dr. Jed GOMEZ, PGY4 Heart failure team Pager: [phone] enia Su MA - 02/09/2019 3:00 PM CDTEdmundojoaquín Nelson came into clinic with no complaints and no distress noted. documented in this encounter Plan of Treatment Date Type Specialty Care Team Description 02/23/2019 Office Visit Internal Medicine Lilibeth Andrade MD [address] [place] [address] Dr Lewis [address] [place] [address] [phone] 02/24/2019 Office Visit Endocrinology Diabetes & JonesZhen MD Metabolism [address] [place] [address] [phone] 02/26/2019 Nurse Visit Anti-coagulation Clinic Nurse, Christen Brown 03/24/2019 Office Visit Gastroenterology Ioana Mccarty MD [address] [place] [phone] 04/01/2019 Office Visit Internal Medicine Lilibeth Andrade MD [address] [place] [address] Dr Lewis [address] [place] [address] [phone] 04/27/2019 Office Visit Cardiology Robert Adkins MD [id number] [place] [address] [phone] 05/04/2019 Office Visit Cardiology Al Valiente MD [address] [place] [address] [address] [place], [place] [phone] 05/13/2019 Office Visit Internal Medicine Lilibeth Andrade MD [address] [place] [address] Dr Lewis [address] [place] [address] [phone] 05/27/2019 Appointment Cardiac Electrophysiology Outpt-Simi, Pacemaker/Icd 06/08/2019 Office Visit Internal Medicine Lilibeth Andrade MD [address] [place] [address] Dr Lewis [address] [place] [address] [phone] 10/27/2019 Office Visit Pulmonary Disease Max Aguiar [address] [place] [address] Dr Lewis [address] [place] [address] [phone] 12/08/2019 Office Visit Ophthalmology Yariel Tineo MD [address] [place] [address] Name Type Priority Associated Diagnoses Order Schedule BASIC METABOLIC PANEL LAB Routine Hypopotassemia 1 Occurrences starting (32415)(NA, K, CL, CO2, 02/09/2019 until GLUCOSE, BUN, 02/10/2020 CREATININE, CA) MAGNESIUM LAB Routine Hypopotassemia 1 Occurrences starting 02/09/2019 until 02/10/2020 Health Maintenance Due Date Last Done Comments [...] of this encounter Implants Implanted Type Area Landscaping Manager Device Shelf Model / Identifier Expiration Serial / Date Lot Prolene Mesh MESH Right: Ethicon 12/20/2020 PMSK / Implanted: Qty: 1 on 07/04/2016 by Alfonso Martinez MD at [facility] [employer] PMSK / [id number] Stent-06/24/2016 Implanted: 06/24/2016 (Quantity not on file) documented as of this encounter Results Not on filedocumented in this encounter Visit Diagnoses Diagnosis Hypopotassemia - Primary Chronic diastolic CHF (congestive heart failure) Coronary artery disease of [place] artery of [place] heart with stable angina pectoris documented in this encounter Insurance Payer Benefit Plan / Subscriber ID Effective Phone Address Type Group Dates HIM [facility] [id number] 2017-Lux [phone] [address] [employer] [id number] [place] [address] (Home) [place] [address] documented as of this encounter Advance Directives Name Relationship Healthcare Agent Communication Relationship Keaton Nelson Spouse Primary healthcare agent [email or web address] Elisabeth Soliz Sibling First alternate healthcare [phone] agent (Mobile)
--- OUTSIDE RECORDS SUMMARY | 2019-05-11 00:50 | XMS REPORT | Summary of Care ---
:1970 Author Organization [facility] Address [address] [place] [address] Care Team Providers Name Role Phone Lilibeth Andrade MD Primary Care Provider Libby Espinoza RN Unavailable Unavailable Al Valiente MD Unavailable Junito Quezada MD Unavailable Karena Anand CONVEYOR MAN Unavailable Unavailable Tito Kirkpatrick Unavailable Reason for Visit Reason Comments LAB Encounter Details Date Type Department Care Team Description 02/12/2019 Die Hardener Visit [facility] Lilibeth Andrade MD [address] [place] [address] Dr [address] [place] [address] Hypopotassemia Professional Office 2, [facility] Building Phlebotomy Lab Professional Office Building [address] [place] [address] , [address] [place] [address] Allergies Active Allergy Reactions Severity Noted Date [...] as of this encounter (statuses as of 02/12/2019) Medications Medication Sig Dispensed Refills Start Date End Date Status docusate 100 mg Take 1 capsule by 30 capsule 0 07/04/2016 Active capsule mouth 2 (two) times daily as needed for Constipation. Insulin [place], Use as directed, 400 Each 1 09/19/2017 Active Disposable, (RELION QID, DX:E11.9 PEN NEEDLES) 32 gauge x 32" [...] as of this encounter (statuses as of 02/12/2019) Active Problems Problem Noted Date Bradycardia 10/06/2018 [...] Overview: Added automatically from request for surgery [id number] Syncope 04/01/2017 Chest pain, rule out acute [...] Chest pain 06/12/2016 Coronary artery disease involving [place] coronary artery of [place] heart 06/12 with angina pectoris [place] (myocardial infarction) 06/12/2016 Type 2 diabetes mellitus without complication 06/12/2016 Essential hypertension 06/12/2016 History of alcohol abuse Overview: Sober for 16 years documented as of this encounter (statuses as of 02/12/2019) Resolved Problems Problem Noted Date Resolved Date Chest pain radiating to arm 08/08/2016 08/19/2016 Abdominal pain 07/19/2016 08/19/2016 History of epidural anesthesia 07/04/2016 08/19/2016 Morbid obesity with body mass index of 50 or higher 06/26/2016 08/19/2016 Obesity (BMI 30-39.9) 06/12/2016 08/19/2016 documented as of this encounter (statuses as of 02/12/2019) Immunizations Name Administration Dates Next Due Td [...] Office Visit Internal Medicine Lilibeth Andrade MD [address] [place] [address] [address] [place] [place] [address] [phone] 02/24/2019 Office Visit Endocrinology Diabetes & Zhen Jones MD Metabolism [address] [place] [address] [phone] 02/26/2019 Nurse Visit Anti-coagulation Clinic Nurse, Christen Anticoag 03/24/2019 Office Visit Gastroenterology Ioana Mccarty MD [address] [place] [address] [phone] 04/01/2019 Office Visit Internal Medicine Lilibeth Andrade MD [address] [place] [address] Dr Lewis [address] [place] [address] [phone] 04/27/2019 Office Visit Cardiology Robert Adkins MD [address] [place] [address] [address] [place], [place] [phone] 05/04/2019 Office Visit Cardiology Al Valiente MD [address] [place] [address] [place] [phone] 05/13/2019 Office Visit Internal Medicine Lilibeth Andrade MD [address] [place] [address] Dr Lewis [address] [place] [address] [phone] 05/27/2019 Appointment Cardiac Electrophysiology Outpt-Simi, Pacemaker/Icd 06/08/2019 Office Visit Internal Medicine Lliibeth Andrade MD [address] [place] [address] Dr Lewis [address] [place] [address] [phone] 10/27/2019 Office Visit Pulmonary Disease Max Aguiar [address] [place] [address] Dr Lewis [address] [place] [phone] 12/08/2019 Office Visit Ophthalmology Yariel Tineo MD [address] [place] [address]. [place] [address] Health Maintenance Due Date Last Done Comments PNEUMOCOCCAL 0-64 YEARS 1975 COMBINED SERIES (1 of 1 - PPSV23) HgA1C 01/25/2019 07/28/2018, 03/30/2018, 01/11/2018, Additional history exists INFLUENZA VACCINE (#1) 2019 LDL-C 07/28/2019 07/28/2018, 01/11/2018, 12/31/2017, Additional history exists FOOT EXAM 09/23/2019 09/22/2018, 09/22/2018, 04/22/2018, Additional history exists EYE EXAM 11/20/2019 11/19/2018, 11/13/2017 URINE MICROALBUMIN 02/07/2020 02/06/2019, 01/19/2018, 08/20/2016 CREATININE (SERUM) 02/10/2020 02/09/2019, 02/06/2019, 11/26/2018, Additional history exists DTaP,Tdap,and Td Vaccines 06/26/2027 06/26/2017, 03/19/2015 Postponed from (1 - Tdap) 06/27/2017 (Not Indicated) documented as of this encounter Implants Implanted Type Area Carton Maker Device Shelf Model / Identifier Expiration Serial / Date Lot Prolene Mesh MESH Right: Ethicon 12/20/2020 PMSK / Implanted: Qty: 1 on 07/04/2016 by Alfonso Martinez MD at [facility] [employer] PMSK / [id number] Stent-06/24/2016 Implanted: 06/24/2016 (Quantity not on file) documented as of this encounter Results Not on filedocumented in this encounter Visit Diagnoses Diagnosis Hypopotassemia documented in this encounter Insurance Payer Benefit Plan / Subscriber ID Effective Phone Address Type Group Dates [facility] [id number] 2017-Lux [phone] HMO HEALTH [employer] [phone] [place] [address] (Home) [place] [address] documented as of this encounter Advance Directives Name Relationship Healthcare Agent Communication Relationship Keaton Nelson Spouse Primary healthcare agent [email or web address] Elisabeth Soliz Sibling First alternate healthcare [phone] agent (Mobile)
--- OUTSIDE RECORDS SUMMARY | 2019-05-11 00:50 | XMS REPORT | Summary of Care ---
:1970 Author Organization [facility] Address [address] [place] [address] Care Team Providers Name Role Phone Lilibeth Andrade MD Primary Care Provider Libby Espinoza RN Unavailable Unavailable Al Valiente MD Unavailable Junito Quezada MD Unavailable Karena AnandP Unavailable Unavailable Tito Kirkpatrick Unavailable Reason for Visit Reason Comments Follow-up Encounter Details Date Type Department Care Team Description 02/09/2019 Office Visit [facility] Robert Adkins Hypopotassemia ( Primary Dx); CardiologyCatherine MD Chronic diastolic CHF (congestive heart failure); [address] Coronary artery disease of chickahominy indians-eastern division artery of chick[place]om[place] indians[place]eastern division heart with stable angina pectoris [address] [place], [place] [id number] [address] [place], [place] [phone] Allergies Active Allergy Reactions Severity Noted [...] times daily as needed for Constipation. 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 smoking history. will need repeat in 6- 12 months. AK (myocardial infarction) November 2015, 1 stent in [...] needed for pain 100 g 3 Insulin [place], Disposable, (RELION PEN NEEDLES) 32 gauge x [...] file Gets together: Not on file Attends zoroastrian service: Not on file Active member of [...] stent patent. -Aggressive medical rx for CAD. [facility] 12/2017--No significant stenosis. Nuclear stress test--01/05/2019 IMPRESSION [...] Jed GOMEZ, PGY4 Heart failure team Pager: [phone] enia Su MA - 02/09/2019 3:00 PM CDTEdmundojoaquín Nelson came into clinic with no complaints and no distress noted. documented in this encounter Plan of Treatment Date Type Specialty Care Team Description 02/23/2019 Office Visit Internal Medicine Lilibeth Andrade MD [address] [place] [address] Dr Lewis [address] [place] [address] [phone] 02/24/2019 Office Visit Endocrinology Diabetes & JonesZhen MD Metabolism [address] [place] [address] [phone] 02/26/2019 Nurse Visit Anti-coagulation Clinic Nurse, Christen Brown 03/24/2019 Office Visit Gastroenterology Ioana Mccarty MD [address] [place] [address] [phone] 04/01/2019 Office Visit Internal Medicine Lilibeth Andrade MD [address] [place] [address] Dr Lewis [address] [place] [address] [phone] 04/27/2019 Office Visit Cardiology Robert Adkins MD [id number] [place] [address] [phone] 05/04/2019 Office Visit Cardiology Al Valiente MD [address] [place] [address] [address] [place], [place] 2[address] 05/13/2019 Office Visit Internal Medicine Lilibeth Andrade MD [address] [place] [address] Dr Lewis [address] [place] [address] [phone] 05/27/2019 Appointment Cardiac Electrophysiology Outpt-Simi, Pacemaker/Icd 06/08/2019 Office Visit Internal Medicine Lilibeth Andrade MD [address] [place] [address] Dr Lewis [address] [place] [address] [phone] 10/27/2019 Office Visit Pulmonary Disease Max Aguiar [address] [place] [address] Dr Lewis [address] [place] [address] [phone] 12/08/2019 Office Visit Ophthalmology Yariel Tineo MD [address] [place] [address] Name Type Priority Associated Diagnoses Order Schedule BASIC METABOLIC PANEL LAB Routine Hypopotassemia 1 Occurrences starting (45304)(NA, K, CL, CO2, 02/09/2019 until GLUCOSE, BUN, [...] of this encounter Implants Implanted Type Area Clay Puddler Device Shelf Model / Identifier Expiration Serial / Date Lot Prolene Mesh MESH Right: Ethicon 12/20/2020 PMSK / Implanted: Qty: 1 on 07/04/2016 by Alfonso Martinez MD at [facility] [employer] PMSK / [id number] Stent-06/24/2016 Implanted: 06/24/2016 (Quantity not on file) documented as of this encounter Results Not on filedocumented in this encounter Visit Diagnoses Diagnosis Hypopotassemia - Primary Chronic diastolic CHF (congestive heart failure) Coronary artery disease of chickahominy indians-eastern division artery of chickahominy indians-eastern division heart with stable angina pectoris documented in this encounter Insurance Payer Benefit Plan / Subscriber ID Effective Phone Address Type Group Dates HIM [facility] [id number] 2017-Lux [phone] [address] [employer] [address] [id number] [place] [address] (Home) [place] [address] documented as of this encounter Advance Directives Name Relationship Healthcare Agent Communication Relationship Keaton Nelson Spouse Primary healthcare agent Elisabeth Soliz Sibling First alternate healthcare [phone] agent (Mobile)
--- OUTSIDE RECORDS SUMMARY | 2019-05-11 00:51 | XMS REPORT | Summary of Care ---
:1970 Author Organization [facility] - Health Address [address] [place], [place] [address] Care Team Providers Name Role Phone Lilibeth Andrade MD Primary Care Provider Libby Espinoza RN Unavailable Unavailable Al Valiente MD Unavailable Junito Quezada MD Unavailable Karena Anand CARRIER PACKER Unavailable Unavailable Tito Kirkpatrick Unavailable Encounter Details Date Type Department Care Team Description 02/12/2019 Orders Only [facility] Doctor Unassigned, No [address] [facility] [place] [address] [address] [place] [id number] Allergies Active Allergy Reactions Severity Noted Date [...] as of this encounter (statuses as of 02/16/2019) Medications Medication Sig Dispensed Refills Start Date End Date Status docusate 100 mg Take 1 capsule by 30 capsule 0 07/04/2016 Active capsule mouth 2 (two) times daily as needed for Constipation. Insulin Channing, Use as directed, 400 Each 1 09/19/2017 [...] as of this encounter (statuses as of 02/16/2019) Active Problems Problem Noted Date Bradycardia 10/06/2018 [...] Overview: Added automatically from request for surgery [id number] Syncope 04/01/2017 Chest pain, rule out acute [...] Chest pain 06/12/2016 Coronary artery disease involving lime coronary artery of lime heart 06/12 with angina pectoris RI (myocardial infarction) 06/12/2016 Type 2 diabetes mellitus without complication 06/12/2016 Essential hypertension 06/12/2016 History of alcohol abuse Overview: Sober for 16 years documented as of this encounter (statuses as of 02/16/2019) Resolved Problems Problem Noted Date Resolved Date Chest pain radiating to arm 08/08/2016 08/19/2016 Abdominal pain 07/19/2016 08/19/2016 History of epidural anesthesia 07/04/2016 08/19/2016 Morbid obesity with body mass index of 50 or higher 06/26/2016 08/19/2016 Obesity (BMI 30-39.9) 06/12/2016 08/19/2016 documented as of this encounter (statuses as of 02/16/2019) Immunizations Name Administration Dates Next Due Td [...] Office Visit Internal Medicine Lilibeth Andrade MD [address] [place] [address] Dr Lewis [address] [place] [address] [phone] 02/24/2019 Office Visit Endocrinology Diabetes & Zhen Jones MD Metabolism [address] [place] [address] [phone] 02/26/2019 Nurse Visit Anti-coagulation Clinic Nurse, Christen Anticoag 03/24/2019 Office Visit Gastroenterology Ioana Mccarty MD [facility] [place] [address] [phone] 04/01/2019 Office Visit Internal Medicine Lilibeth Andrade MD [address] [place] [address] Dr Lewis [address] [place] [address] [phone] 04/27/2019 Office Visit Cardiology Robert Adkins MD [address] [facility] [address] [place] [address] [phone] 05/04/2019 Office Visit Cardiology Al Valiente MD [address] [place] [address] [address] [place], [place] [phone] 05/13/2019 Office Visit Internal Medicine Lilibeth Andrade MD [address] [place] [address] Dr Lewis [address] [place] [address] [phone] 05/27/2019 Appointment Cardiac Electrophysiology Outpt-Simi, Pacemaker/Icd 06/08/2019 Office Visit Internal Medicine Lilibeth Andrade MD [address] [place] [address] Dr Lewis [address] [place] [address] [phone] 10/27/2019 Office Visit Pulmonary Disease Max Aguiar [address] [place] [address] Dr Lewis [address] [place] [address] [phone] 12/08/2019 Office Visit Ophthalmology Yariel Tineo MD [address] [place] [address]. [place], [place] [phone] Health Maintenance Due Date Last Done Comments PNEUMOCOCCAL 0-64 YEARS 1976 COMBINED SERIES (1 of 1 - PPSV23) HgA1C 01/25/2019 07/28/2018, 03/30/2018, 01/11/2018, Additional history exists INFLUENZA VACCINE (#1) 2019 LDL-C 07/28/2019 07/28/2018, 01/11/2018, 12/31/2017, Additional history exists FOOT EXAM 09/23/2019 09/22/2018, 09/22/2018, 04/22/2018, Additional history exists EYE EXAM 11/20/2019 11/19/2018, 11/13/2017 URINE MICROALBUMIN 02/07/2020 02/06/2019, 01/19/2018, 08/20/2016 CREATININE (SERUM) 02/14/2020 02/13/2019, 02/12/2019, 02/09/2019, Additional history exists DTaP,Tdap,and Td Vaccines 06/26/2027 06/26/2017, 03/19/2015 Postponed from (1 - Tdap) 06/27/2017 (Not Indicated) documented as of this encounter Implants Implanted Type Area Parachute Mender Device Shelf Model / Identifier Expiration Serial / Date Lot Prolene Mesh MESH Right: Ethicon 12/20/2020 PMSK / Implanted: Qty: 1 on 07/04/2016 by Alfonso Martinez MD at [facility] [employer] PMSK / [id number] Stent-06/24/2016 Implanted: 06/24/2016 (Quantity not on file) documented as of this encounter Procedures Procedure Name Priority Date/Time Associated Diagnosis Comments AGREEMENTS AUTHORIZATIONS Routine 02/12/2019 12:01 AM AND IRREVOCABLE CDT ASSIGNMENTS (FORM 2000) documented in this encounter Results Not on filedocumented in this encounter Insurance Payer Benefit Plan / Subscriber ID Effective Phone Address Type Group [facility] [id number] 2017-Pre [phone] [address] [employer] HEALTH CHOICE sent [phone] [place] [address] BEACON BEACON [id number] 2016-Pre [phone] [facility] sent [phone] [facility] , [address] [place] [address] documented as of this encounter Advance Directives Name Relationship Healthcare Agent Communication Relationship Keaton Nelson Spouse Primary healthcare agent Elisabeth Soliz Sibling First alternate healthcare [phone] agent (Mobile)
--- OUTSIDE RECORDS SUMMARY | 2019-05-11 00:51 | XMS REPORT | Summary of Care ---
:1970 Author Organization [facility] Address [address] [place] [address] Care Team Providers Name Role Phone Lilibeth Andrade MD Primary Care Provider Libby Espinoza RN Unavailable Unavailable Al Valiente MD Unavailable Junito Quezada MD Unavailable Karena Anand RAILROAD COMMISSIONER Unavailable Unavailable Tito Kirkpatrick Unavailable Reason for Visit Reason Comments Abnormal Lab Encounter Details Date Type Department Care Team Description 02/14/[address] [facility] and Sundar Novak [facility] Abnormal Lab Clinics [address] [place] [phone] [place] [address] Allergies Active Allergy Reactions Severity [...] as of this encounter (statuses as of 02/14/2019) Medications Medication Sig Dispensed Refills Start Date End Date Status docusate 100 mg Take 1 capsule by 30 capsule 0 07/04/2016 Active capsule mouth 2 (two) times daily as needed for Constipation. Insulin Boyers, Use as directed, 400 Each 1 09/19/2017 [...] as of this encounter (statuses as of 02/14/2019) Active Problems Problem Noted Date Bradycardia 10/06/2018 [...] Overview: Added automatically from request for surgery [id number] Syncope 04/01/2017 Chest pain, rule out acute [...] Chest pain 06/12/2016 Coronary artery disease involving [place] coronary artery of diomede heart 06/12 with angina pectoris DC (myocardial infarction) 06/12/2016 Type 2 diabetes mellitus without complication 06/12/2016 Essential hypertension 06/12/2016 History of alcohol abuse Overview: Sober for 16 years documented as of this encounter (statuses as of 02/14/2019) Resolved Problems Problem Noted Date Resolved Date Chest pain radiating to arm 08/08/2016 08/19/2016 Abdominal pain 07/19/2016 08/19/2016 History of epidural anesthesia 07/04/2016 08/19/2016 Morbid obesity with body mass index of 50 or higher 06/26/2016 08/19/2016 Obesity (BMI 30-39.9) 06/12/2016 08/19/2016 documented as of this encounter (statuses as of 02/14/2019) Immunizations Name Administration Dates Next Due Td [...] Visit Internal Medicine Lilibeth Andrade MD [address] [place] [address] [place] [address] [phone] 02/24/2019 Office Visit Endocrinology Diabetes & Zhen Jones MD Metabolism [address] [place] [address] [phone] 02/26/2019 Nurse Visit Anti-coagulation Clinic Nurse, Christen Anticoag 03/24/2019 Office Visit Gastroenterology Ioana Mccarty MD [address] [place] [address] [phone] 04/01/2019 Office Visit Internal Medicine Lilibeth Andrade MD [address] [place] [address] Dr Lewis [address] [place] [address] [phone] 04/27/2019 Office Visit Cardiology Robert Adkins MD [address] [place] [address] [id number] [place], [place] [phone] 05/04/2019 Office Visit Cardiology Al Valiente MD [address] [place] [address] [place] [address] [phone] 05/13/2019 Office Visit Internal Medicine Lilibeth Andrade MD [address] [place] [address] Dr Lewis [address] [place] [address] [phone] 05/27/2019 Appointment Cardiac Electrophysiology Outpt-Simi, Pacemaker/Icd 06/08/2019 Office Visit Internal Medicine Lilibeth Andrade MD [address] [place] [address] Dr Lewis [address] [place] [address] [phone] 10/27/2019 Office Visit Pulmonary Disease Max Aguiar [address] [place] [address] Dr Lewis [address] [place] [address] [phone] 12/08/2019 Office Visit Ophthalmology Yariel Tineo MD [address] [place] [address]. [place] [address] Name Type Priority Associated Diagnoses Order Schedule BASIC METABOLIC PANEL LAB Routine Hypopotassemia 1 Occurrences starting (NA, K, CL, CO2, 02/14/2019 until GLUCOSE, BUN, 02/15/2020 CREATININE, CA) Health Maintenance Due Date Last Done Comments [...] of this encounter Implants Implanted Type Area Educational Manager Device Shelf Model / Identifier Expiration Serial / Date Lot Prolene Mesh MESH Right: Ethicon 12/20/2020 PMSK / Implanted: Qty: 1 on 07/04/2016 by Alfonso Martinez MD at [facility] [employer] PMSK / [id number] Stent-06/24/2016 Implanted: 06/24/2016 (Quantity not on file) documented as of this encounter Results Not on filedocumented in this encounter Visit Diagnoses Diagnosis Hypopotassemia - Primary documented in this encounter Insurance Payer Benefit Plan / Subscriber ID Effective Phone Address Type Group Dates [facility] [id number] 2017-Pre [phone] [address] HMO HEALTH CHOICE HEALTH CHOICE sent [phone] [place] [address] BEACON BEACON [id number] 2016-Pre [phone] [facility] sent [phone] [facility] , [address] [place] [address] documented as of this encounter Advance Directives Name Relationship Healthcare Agent Communication Relationship Keaton Nelson Spouse Primary healthcare agent [email or web address] Elisabeth Soliz Sibling First alternate healthcare [phone] agent (Mobile) [phone] ([place])
--- OUTSIDE RECORDS SUMMARY | 2019-05-11 00:51 | XMS REPORT | Summary of Care ---
:1970 Author Organization [facility] - [facility] Address [address] [place] [address] Care Team Providers Name Role Phone Lilibeth Andrade MD Primary Care Provider Libby Espinoza RN Unavailable Unavailable Al Valiente MD Unavailable Junito Quezada MD Unavailable Karena Anand ENROLLMENT ADVISOR Unavailable Unavailable Tito Kirkpatrick Unavailable Reason for Visit Reason Comments Fatigue Abdominal Pain Auth/Cert Status Reason Specialty Diagnoses / Referred By Referred To Procedures Contact Contact Emergency Medicine [facility] [address] [place] [address] Encounter Details Date Type Department Care Team Description 02/13/2019 Emergency ADC-Emergency Amisha Toth, Weakness (Primary Dx ) Department DO [address] [place] [address] [place] [id number] [place] [address] [phone] Allergies Active Allergy Reactions Severity Noted Date [...] as of this encounter (statuses as of 02/13/2019) Medications Medication Sig Dispensed Refills Start Date End Date Status docusate 100 mg Take 1 capsule by 30 capsule 0 07/04/2016 Active capsule mouth 2 (two) times daily as needed for Constipation. 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 ID (myocardial infarction) 06/12/2016 Type 2 diabetes mellitus without complication 06/12/2016 Essential hypertension 06/12/2016 History of alcohol abuse Overview: Sober for 16 years documented as of this encounter (statuses as of 02/13/2019) Resolved Problems Problem Noted Date Resolved Date Chest pain radiating to arm 08/08/2016 08/19/2016 Abdominal pain 07/19/2016 08/19/2016 History of epidural anesthesia 07/04/2016 08/19/2016 Morbid obesity with body mass index of 50 or higher 06/26/2016 08/19/2016 Obesity (BMI 30-39.9) 06/12/2016 08/19/2016 documented as of this encounter (statuses as of 02/13/2019) Immunizations Name Administration Dates Next Due Td [...] Sign Reading Time Taken Comments Blood Pressure 115/60 02/13/2019 3:00 AM CDT Pulse 76 02/13/2019 3:37 AM CDT Temperature 37.1 C (98.8 F) 02/13/2019 1:45 AM CDT Respiratory Rate 16 02/13/2019 3:37 AM CDT Oxygen Saturation 95% 02/13/2019 3:37 AM CDT Inhaled Oxygen Concentration - - Weight 128.8 kg (284 lb) 02/13/2019 1:45 AM CDT Height 177.8 cm (5' 10") 02/13/2019 1:45 AM CDT Body Mass Index 40.75 02/13/2019 1:45 AM CDT documented in this encounter Discharge Instructions Amisha Tinoco DO - 02/13/2019DIAGNOSIS 1. Weakness 2. Low potassium NO LIFE-THREATENING FINDINGS ON TODAY'S EXAM. PROCEDURES IN THE ER TODAY: Blood work EKG MEDICATIONS ADMINISTERED IN THE ER TODAY: IV fluids Potassium YOUR PRESCRIPTIONS AND [id number] MEDICATION RECOMMENDATIONS: None SPECIAL CARE INSTRUCTIONS: Please follow-up with your primary care physician as scheduled. FOLLOW-UP RECOMMENDATIONS: RECOMMEND FOLLOW-UP WITH A PRIMARY CARE PROVIDER OR SPECIALIST IN 2-5 DAYS, ESPECIALLY IF NO IMPROVEMENT IN SYMPTOMS. TO FOLLOW-UP WITHIN THE [facility], TRY THESE OPTIONS (CLINIC APPOINTMENTS AVAILABLE ON [id number] BASIS): 1. SCHEDULE AN APPOINTMENT ONLINE AT WWW[facility] 2. OR CALL THE [facility] AT OR 3. OR CALL YOUR [facility] PHYSICIAN'S OFFICE DIRECTLY IF YOU ARE ALREADY AN ESTABLISHED [facility] PATIENT. OR, YOU MAY FOLLOW-UP WITH A PROVIDER OF YOUR CHOICE, SUCH : 1. A PHYSICIAN OF YOUR CHOICE 2. [facility], . LOCATIONS IN [facility] 3. [facility], [address] [place] [address]; RETURN TO ER FOR WORSENING OF SYMPTOMS. AttachmentsThe following attachments cannot be sent through Care Everywhere.Weakness (Uncertain Cause) (Tanzanian)Hypokalemia, Discharge Instructions (Tanzanian)documented in this encounter Plan of Treatment Date Type Specialty Care Team Description 02/23/2019 Office Visit Internal Medicine Lilibeth Andrade MD [address] [place] [address] Dr Lewis [address] [place] [address] 02/24/2019 Office Visit Endocrinology Diabetes & Zhen Jones MD Metabolism [address] [place] [address] 02/26/2019 Nurse Visit Anti-coagulation Clinic Nurse, Christen Brown 03/24/2019 Office Visit Gastroenterology Ioana Mccarty MD [address] [place] [address] [phone] 04/01/2019 Office Visit Internal Medicine Lilibeth Andrade MD [address] [place] [address] Dr Lewis [address] [place] [address] [phone] 04/27/2019 Office Visit Cardiology Robert Adkins MD [address] [place] [address] [id number] [place], [place] 387765 05/04/2019 Office Visit Cardiology Al Valiente MD [address] [place] [address] [place] [address] [phone] 05/13/2019 Office Visit Internal Medicine Lilibeth Andrade MD [address] [place] [address] Dr Lewis [address] [place] [address] [phone] 05/27/2019 Appointment Cardiac Electrophysiology Outpt-Simi, Pacemaker/Icd 06/08/2019 Office Visit Internal Medicine Lilibeth Andrade MD [address] [place] [address] Dr Lewis [address] [place] [address] [phone] 10/27/2019 Office Visit Pulmonary Disease Max Aguiar [address] [place] [address] [address] [phone] 12/08/2019 Office Visit Ophthalmology Yariel Tineo MD [address] [place] [address]. [place] [address] Health Maintenance Due Date Last Done Comments PNEUMOCOCCAL 0-64 YEARS 1976 COMBINED SERIES (1 of 1 - PPSV23) HgA1C 01/25/2019 07/28/2018, 03/30/2018, 01/11/2018, Additional history exists INFLUENZA VACCINE (#1) 2019 LDL-C 07/28/2019 07/28/2018, 01/11/2018, 12/31/2017, Additional history exists FOOT EXAM 09/23/2019 09/22/2018, 09/22/2018, 04/22/2018, Additional history exists EYE EXAM 11/20/2019 11/19/2018, 11/13/2017 URINE MICROALBUMIN 02/07/2020 02/06/2019, 01/19/2018, 08/20/2016 CREATININE (SERUM) 02/13/2020 02/12/2019, 02/09/2019, 02/06/2019, Additional history exists DTaP,Tdap,and Td Vaccines 06/26/2027 06/26/2017, 03/19/2015 Postponed from (1 - Tdap) 06/27/2017 (Not Indicated) documented as of this encounter Implants Implanted Type Area Elementary Science Teacher Device Shelf Model / Identifier Expiration Serial / Date Lot Prolene Mesh MESH Right: Ethicon 12/20/2020 PMSK / Implanted: Qty: 1 on 07/04/2016 by Alfonso Martinez MD at [facility] [employer]dom[employer] PMSK / [id number] Stent-06/24/2016 Implanted: 06/24/2016 (Quantity not on file) documented as of this encounter Procedures Procedure Name Priority Date/Time Associated Comments Diagnosis CBC WITH DIFFERENTIAL STAT 02/13/2019 2:17 Weakness Results for this AM CDT procedure are in the results section. URINALYSIS STAT 02/13/2019 2:17 Weakness Results for this AM CDT procedure are in the results section. CBC WITH DIFF Routine 02/13/2019 2:17 Weakness Results for this AM CDT procedure are in the results section. BASIC METABOLIC PANEL STAT 02/13/2019 2:17 Weakness Results for this (NA, K, CL, CO2, AM CDT procedure are in GLUCOSE, BUN, the results CREATININE, CA) section. TROPONIN I STAT 02/13/2019 2:17 Weakness Results for this AM CDT procedure are in the results section. MAGNESIUM STAT 02/13/2019 2:17 Weakness Results for this AM CDT procedure are in the results section. EKG-12 LEAD STAT 02/13/2019 2:14 AM CDT NOTICE OF PRIVACY Routine 02/13/2019 1:37 PRACTICES AM CDT CONSENT/REFUSAL FOR Routine 02/13/2019 1:36 DIAGNOSIS AND AM CDT TREATMENT documented in this encounter Results CBC WITH DIFFERENTIAL (02/13/2019 2:17 AM CDT) WBC 12.65 (H) 4.20 - 10.70 [facility] 10*3/L [facility] RBC 5.65 (H) 4.26 - 5.52 [facility] 10*6/L [facility] HGB 13.7 12.2 - 16.4 [facility] g/dL [facility] HCT 42.0 38.4 - 49.3 % [facility] MCV 74.3 (L) 81.7 - 95.6 fL [facility] MCH 24.2 (L) 26.1 - 32.7 pg [facility] MCHC 32.6 31.2 - 35.0 [facility] g/dL [facility] RDW-SD 45.1 38.5 - 51.6 fL [facility] RDW-CV 17.8 (H) 12.1 - 15.4 % [facility] PLT 332 (H) 150 - 328 [facility] 10*3/L [facility] MPV 9.5 (L) 9.8 - 13.0 fL [facility] NRBC/100 WBC 0.0 0.0 - 10.0 /100 [facility] WBCs [facility] NRBC x10^3 <0.01 10*3/L [facility] GRAN MAT (NEUT) % 73.2 % [facility] IMM GRAN % 0.50 % [facility] LYMPH % 18.3 % [facility] MONO % 7.0 % [facility] EOS % 0.6 % [facility] BASO % 0.4 % [facility] GRAN MAT x10^3(ANC) 9.27 (H) 1.99 - 6.95 [facility] 10*3/uL [facility] IMM GRAN x10^3 0.06 0.00 - 0.06 [facility] 10*3/uL [facility] LYMPH x10^3 2.31 1.09 - 3.23 [facility] 10*3/uL [facility] MONO x10^3 0.88 0.36 - 1.02 [facility] 10*3/uL [facility] EOS x10^3 0.08 0.06 - 0.53 [facility] 10*3/uL [facility] BASO x10^3 0.05 0.01 - 0.09 [facility] 10*3/uL [facility] Specimen Blood - VENOUS Performing Organization Address [facility]/[employer] Phone Number [facility] CLIA: [id number], [address] [place] [address] MAGNESIUM (02/13/2019 2:17 AM CDT) MAGNESIUM 2.0 1.7 - 2.4 mg/dL [facility] Specimen Blood - VENOUS Performing Organization Address [facility] Phone Number [facility] CLIA: [id number], [address] [place] [address] Troponin I (02/13/2019 2:17 AM CDT) TROPONIN I <0.012 <=0.034 ng/mL [facility] Specimen [...] patient's use of biotin. Performing Organization Address [facility] Phone Number [facility] CLIA: [id number], [address] [place] [address] Urinalysis (02/13/2019 2:17 AM CDT) APPEARANCE Clear Clear [facility] COLOR Yellow Yellow [facility] PH 6.5 4.8 - 8.0 [facility] SP GRAVITY 1.010 1.003 - 1.030 [facility] GLU U QUAL Negative Negative [facility] BLOOD Negative Negative [facility] KETONES Negative Negative [facility] PROTEIN Negative Negative [facility] UROBILIN 0.2 mg/dL 0-1.0 mg/dL [facility] BILIRUBIN Negative Negative [facility] NITRITE Negative Negative [facility] LEUK TRE Negative Negative [facility] RBC/HPF 1 0 - 3 HPF [facility] WBC/HPF 0 0 - 5 HPF [facility] BACTERIA Negative Negative [facility] Specimen Urine - URINE, CLEAN CATCH Performing Organization Address City/State/Zipcode Phone Number [facility] CLIA: [id number], [address] [place] [address] Basic Metabolic Panel (NA, K, CL, CO2, GLUCOSE, BUN, CREATININE, CA) (2018 2:17 AM CDT) NA 138 135 - 145 [facility] mmol/L [facility] K 3.3 (L) 3.5 - 5.0 [facility] mmol/L [facility] CL 96 (L) 98 - 108 mmol/L [facility] CO2 TOTAL 28 23 - 31 mmol/L [facility] AGAP 14 2 - 16 [facility] BUN 13 7 - 23 mg/dL [facility] GLUCOSE 222 (H) 70 - 110 mg/dL [facility] CREATININE 1.36 (H) 0.60 - 1.25 [facility] mg/dL [facility] CALCIUM 9.8 8.6 - 10.6 [facility] mg/dL [facility] eGFR Calculation 55.7 mL/min/1.73m2 [facility] ([facility] LABORATORY [place]) eGFR Calculation 67.5 mL/min/1.73m2 [facility] () [facility] Specimen Blood - VENOUS Narrative Performed At Association of Glomerular Filtration [...] City/State/Zipcode Phone Number [facility] CLIA: [id number], [address] [place] [address] [facility] [address] documented in this encounter Visit Diagnoses Diagnosis Weakness - Primary Other malaise and fatigue documented in this encounter Administered Medications Medication Order MAR Action Action Date Dose Rate Site KCL (KLOR-CON M20) tablet 40 mEq Given 02/13/2019 3:03 AM CDT 40 mEq 40 mEq, Oral, ONCE, 1 dose, 02/13/19 at 0400, LIVIA NaCl 0.9% (NS) bolus infusion 500 New Bag 02/13/2019 2:18 AM CDT 500 mL 999 mL/hr mL at 999 mL/hr, 500 mL, IV Infusion, ONCE, 1 dose, 02/13/19 at 0215, LIVIA documented in this encounter Insurance Payer Benefit Plan / Subscriber ID Effective Phone Address Type Group Dates [facility] [id number] 2017-Lux [phone] [place] [address] (Home) [place] [address] documented as of this encounter Advance Directives Name Relationship Healthcare Agent Communication Relationship Keaton Nelson Spouse Primary healthcare agent [email or web address] Elisabeth Soliz Sibling First alternate healthcare [phone] agent (Mobile)
--- OUTSIDE RECORDS SUMMARY | 2019-05-11 00:52 | XMS REPORT | Summary of Care ---
:1970 Author Organization [facility] - [facility] Address [address] [place] [address] Care Team Providers Name Role Phone Lilibeth Andrade MD Primary Care Provider Libby Espinoza RN Unavailable Unavailable Al Valiente MD Unavailable Junito Quezada MD Unavailable Karena Anand MILL FEEDER Unavailable Unavailable Tito Kirkpatrick Unavailable Reason for Visit Reason Comments LAB WORK Lab Results Encounter Details Date Type Department Care Team Description 02/19/2019 Telephone [facility] Cardiology- Robert Adkins LAB WORK; Lab Results [place] MD Namita [address] [address] [facility] [id number] [place] [address] [place] [phone] [address] [phone] Allergies Active Allergy Reactions Severity Noted Date [...] as of this encounter (statuses as of 02/19/2019) Medications Medication Sig Dispensed Refills Start Date End Date Status docusate 100 mg Take 1 capsule by 30 capsule 0 07/04/2016 Active capsule mouth 2 (two) times daily as needed for Constipation. 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/12 with angina pectoris MD (myocardial infarction) 06/12/2016 Type 2 diabetes mellitus without complication 06/12/2016 Essential hypertension 06/12/2016 History of alcohol abuse Overview: Sober for 16 years documented as of this encounter (statuses as of 02/19/2019) Resolved Problems Problem Noted Date Resolved Date Chest pain radiating to arm 08/08/2016 08/19/2016 Abdominal pain 07/19/2016 08/19/2016 History of epidural anesthesia 07/04/2016 08/19/2016 Morbid obesity with body mass index of 50 or higher 06/26/2016 08/19/2016 Obesity (BMI 30-39.9) 06/12/2016 08/19/2016 documented as of this encounter (statuses as of 02/19/2019) Immunizations Name Administration Dates Next Due Td [...] Office Visit Internal Medicine Lilibeth Andrade MD [address] [facility] [address] Lewis [address] [place] [address] [phone] 02/24/2019 Office Visit Endocrinology Diabetes Zhen Jones MD & Metabolism [address] [place] [address] [phone] 02/26/2019 Nurse Visit Anti-coagulation Clinic Nurse, Christen Anticotodd 03/15/2019 Hospital Encounter Surgery Dagoberto Luna MD [id number] [place] [phone] [phone] 03/15/2019 Surgery Surgery Dagoberto Luna LUMBAR EPIDURAL MD Tania STEROID INJECTION [address] [place] [address] [phone] 03/24/2019 Office Visit Gastroenterology Ioana Mccraty MD [address] [place] [address] [phone] 03/29/2019 Hospital Encounter Surgery Dagoberto Luna MD [address] [place] [address] [phone] 03/29/2019 Surgery Surgery Dagoberto Luna LUMBAR PRAFUL Marin MD STEROID INJECTION [address] [place] [address] [phone] 04/01/2019 Office Visit Internal Medicine Lilibeth Andrade MD [address] [place] [address] 04/12/2019 Hospital Encounter Surgery Dagoberto Luna MD [id number] [place] [phone] 04/12/2019 Surgery Surgery Dagoberto Luna LUMBAR EPIDURAL MD Tania STEROID INJECTION [address] [place] [phone] 04/27/2019 Office Visit Cardiology Robert Adkins MD [address] [facility] [id number] [place], [place] 7832[address] 05/04/2019 Office Visit Cardiology Al Valiente MD [address] [place] [address] [address] [place], [place] 796985 05/13/2019 Office Visit Internal Medicine Lilibeth Andrade MD [address] [place] [address] Dr [address] [place], [place] 542155 05/27/2019 Appointment Cardiac Outpt-Simi, Electrophysiology Pacemaker/Icd 06/08/2019 Office Visit Internal Medicine Lilibeth Andrade MD [address] [place] [address] Dr [address] [place], [place] 154445 10/27/2019 Office Visit Pulmonary Disease Max Aguiar [address] [place] [address] Dr [address] [place] [address] 12/08/2019 Office Visit Ophthalmology Yariel Tineo MD [address] [place] [address] Health Maintenance Due Date Last Done [...] of this encounter Implants Implanted Type Area Steamblaster Device Shelf Model / Identifier Expiration Serial / Date Lot Prolene Mesh MESH Right: Ethicon 12/20/2020 PMSK / Implanted: Qty: 1 on 07/04/2016 by Alfonso Martinez MD at [facility] [employer]dom[employer] PMSK / [id number] Stent-06/24/2016 Implanted: 06/24/2016 (Quantity not on file) documented as of this encounter Results Not on filedocumented in this encounter Insurance Payer Benefit Plan / Subscriber ID Effective Phone Address Type [facility] [id number] 2017-Pre [phone] [address] HMO HEALTH CHOICE HEALTH CHOICE sent [phone] [place] [address] [employer] [id number] 2016-Pre [phone] [facility] sent [phone] [facility] , [address] [place] [address] documented as of this encounter Advance Directives Name Relationship Healthcare Agent Communication Relationship Keaton Nelson Spouse Primary healthcare agent Elisabeth Soliz Sibling First alternate healthcare [phone] agent (Mobile)
--- OUTSIDE RECORDS SUMMARY | 2019-05-11 00:53 | XMS REPORT | Summary of Care ---
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 Insulin [place], Use as directed, 400 Each 1 09/19/2017 [...] as of this encounter (statuses as of 02/23/2019) Active Problems Problem Noted Date Bradycardia 10/06/2018 [...] Overview: Added automatically from request for surgery [id number] Syncope 04/01/2017 Chest pain, rule out acute [...] Chest pain 06/12/2016 Coronary artery disease involving minto coronary artery of minto heart 06/12 with angina pectoris [place] (myocardial infarction) 06/12/2016 Type 2 diabetes mellitus without complication 06/12/2016 Essential hypertension 06/12/2016 History of alcohol abuse Overview: Sober for 16 years documented as of this encounter (statuses as of 02/23/2019) Resolved Problems Problem Noted Date Resolved Date Chest pain radiating to arm 08/08/2016 08/19/2016 Abdominal pain 07/19/2016 08/19/2016 History of epidural anesthesia 07/04/2016 08/19/2016 Morbid obesity with body mass index of 50 or higher 06/26/2016 08/19/2016 Obesity (BMI 30-39.9) 06/12/2016 08/19/2016 documented as of this encounter (statuses as of 02/23/2019) Immunizations Name Administration Dates Next Due Td [...] Treatment Date Type Specialty Care Team Description 02/24/2019 Office Visit Endocrinology Diabetes Zhen Jones MD & Metabolism [address] [place] [address] [phone] 02/26/2019 Nurse Visit Anti-coagulation Clinic Nurse, Christen Brown 03/15/2019 Hospital Encounter Surgery Dagoberto Luna MD [address] [place] [address] 03/15/2019 Surgery Surgery Dagoberto Luna LUMBAR EPIDURAL MD Tania STEROID INJECTION [address] [place] [address] [phone] 03/24/2019 Office Visit Gastroenterology Ioana Mccarty MD [address] [place] [address] [phone] 03/29/2019 Hospital Encounter Surgery Dagoberto Luna MD [address] [place] [address] [phone] 03/29/2019 Surgery Surgery Dagoberto Luna LUMBAR PRAFUL Marin MD STEROID INJECTION [address] [place] [address] [phone] 04/01/2019 Office Visit Internal Medicine Lilibeth Andrade MD [address] [place] [address] [address] [place] [address] 04/12/2019 Hospital Encounter Surgery Dagoberto Luna MD [address] [place] [address] [phone] 04/12/2019 Surgery Surgery Dagoberto Luna LUMBAR EPIDURAL MD Tania STEROID INJECTION [address] [place] [phone] 04/27/2019 Office Visit Cardiology Robert Adkins MD [id number] [place], [place] [address] 05/04/2019 Office Visit Cardiology Al Valiente MD [address] [facility] [address] [place], [place] [address] 05/13/2019 Office Visit Internal Medicine Lilibeth Andrade MD [address] [place] [address] [address] [place] [address] [phone] 05/27/2019 Appointment Cardiac Outpt-Simi, Electrophysiology Pacemaker/Icd 06/08/2019 Office Visit Internal Medicine Lilibeth Andrade MD [address] [place] [address] Dr [address] [place] [address] [phone] 10/27/2019 Office Visit Pulmonary Disease Max Aguiar [address] [place] [address] Dr Lewis [address] [place] [address] [phone] 12/08/2019 Office Visit Ophthalmology Yariel Tineo MD [address] [place] [address] Health Maintenance Due Date Last Done [...] of this encounter Implants Implanted Type Area Printing Press Operator Apprentice Device Shelf Model / Identifier Expiration Serial / Date Lot Prolene Mesh MESH Right: Ethicon 12/20/2020 PMSK / Implanted: Qty: 1 on 07/04/2016 by Alfonso Martinez MD at [facility] [employer] PMSK / [id number] Stent-06/24/2016 Implanted: 06/24/2016 (Quantity not on file) documented as of this encounter Results Not on filedocumented in this encounter Visit Diagnoses Diagnosis Hypopotassemia documented in this encounter Insurance Payer Benefit Plan / Subscriber ID Effective Phone Address Type Group Dates [facility] [id number] 2017-Lux [phone] [address] [employer] [phone] [place] [address] ([place]) [place] [address] documented as of this encounter Advance Directives Name Relationship Healthcare Agent Communication Relationship Keaton Leslie Spouse Primary healthcare agent Elisabeth Soliz Sibling First alternate healthcare [phone] agent (Mobile)
--- OUTSIDE RECORDS SUMMARY | 2019-05-11 00:54 | XMS REPORT | Summary of Care ---
:1970 Author Organization [facility] Address [address] [place] [address] Care Team Providers Name Role Phone Lilibeth Andrade MD Primary Care Provider Libby Espinoza RN Unavailable Unavailable Al Valiente MD Unavailable Junito Quezada MD Unavailable Karena AnandP Unavailable Unavailable Tito Kirkpatrick Unavailable Reason for Visit Reason Comments LAB Auth/Cert Status Reason Specialty Diagnoses / Referred By Referred To Procedures Contact Contact Clinical Medical Diagnoses Secondary male hypogonadism [facility] Lab Laboratory Procedures [address] [place] [address] Encounter Details Date Type Department Care Team Description 02/24/2019 Pyridine Recovery Operator Visit [facility] Zhen Jones MD [address] [place] [address] Secondary male Phlebotomy 1, [facility] Lab hypogonadism Lab-[address] [place] [address] Allergies Active Allergy Reactions Severity Noted [...] as of this encounter (statuses as of 02/24/2019) Medications Medication Sig Dispensed Refills Start Date End Date Status docusate 100 mg Take 1 capsule by 30 capsule 0 07/04/2016 Active capsule mouth 2 (two) times daily as needed for Constipation. Insulin [place], Use as directed, 400 Each 1 09/19/2017 Active Disposable, (RELION THOMAS, DX:E11.9 PEN NEEDLES) 32 gauge x 5/32" Ndle Diclofenac Sodium 1 Take 2-4 grams 100 g 3 03/03/2018 Active % gelIndications: three times a day Chronic back pain as needed for pain greater than 3 months duration pyridoxine HCl, Take by mouth. 0 Active vitamin B6, (VITAMIN B-6 ORAL) nitroglycerin Place 1 tablet 1 Bottle 1 04/21/2018 Active (NITROSTAT) 0.4 mg under the tongue sublingual tablet every 5 (five) minutes as needed for Chest pain. magnesium oxide 400 Take 1 tablet by 90 tablet 3 04/25/2018 Active mg magnesium mouth daily. TabIndications: Low magnesium level foLIC acid 1 mg Take 1 tablet by 90 tablet 3 05/27/2018 Active tabletIndications: mouth daily. High plasma homocystine methocarbamol 750 mg Take 750 mg by 0 Active tablet mouth 2 (two) times daily. buprenorphine-naloxo Place 8 mg under 0 Active ne (SUBOXONE) 8-2 mg the tongue every 12 sublingual film (twelve) hours as needed for Pain (scale 7-10). clopidogrel (PLAVIX) Take 1 tablet by 90 tablet 3 07/20/2018 Active 75 mg tablet mouth daily. metOLazone 2.5 mg Once daily PRN for 30 tablet 2 10/09/2018 Active tabletIndications: weight gain > 3 lbs Vitamin B12 deficiency atorvastatin Take 1 tablet by 90 tablet 3 10/13/2018 Active (LIPITOR) 40 mg mouth at bedtime. tablet furosemide (LASIX) Take 80 mg by mouth 0 Active 80 mg tablet every morning and evening. aMILoride 5 mg Take 1 tablet by 60 tablet 2 11/02/2018 Active tabletIndications: mouth 2 (two) times Hypokalemia daily. warfarin 10 mg Take as directed by 60 tablet 3 10/30/2018 Active tablet [facility] based on INR results. warfarin 7.5 mg Take as directed by 90 tablet 3 10/30/2018 Active tablet [facility] Clinic based on INR results. ferrous sulfate Take 1 tablet by 270 tablet 3 11/06/2018 Active (IRON) 325 mg (65 mg mouth 3 (three) iron) times daily with tabletIndications: meals. Iron deficiency anemia due to chronic blood loss KCL 20 mEq Take 3 tablets by 180 tablet 2 11/19/2018 Active tabletIndications: mouth 2 (two) times Acute on chronic daily. diastolic congestive heart failure, Hypopotassemia proMETHazine 25 mg Take 1 tablet by 30 tablet 3 11/25/2018 Active tabletIndications: mouth every 6 (six) Non-intractable hours as needed for vomiting with Nausea and Vomiting nausea, unspecified (N/V). vomiting type Ranolazine 1,000 mg Take 1 tablet by 60 tablet 4 12/09/2018 Active tablet mouth 2 (two) times daily. cholestyramine 4 Take 1 Packet by 1 Can 1 12/09/2018 Active gram mouth 3 (three) powderIndications: times daily with Other fatigue meals. pantoprazole 40 mg Take 1 tablet by 90 tablet 3 12/18/2018 Active EC tablet mouth 2 (two) times daily. testosterone Apply 2 Pumps to 75 g 3 01/05/2019 Active (ANDROGEL) 20.25 area(s) daily. mg/1.25 gram (1.62 %) gel pumpIndications: Low testosterone clonazePAM 1 mg Take 1 pill PO in 120 tablet 1 01/25/2019 Active tabletIndications: the AM, 1 PO in the Generalized anxiety afternoon, 1 pill disorder, Panic PO in the evening. disorder without May take additional agoraphobia 1 pill as needed acute anxiety. Cholecalciferol, Take by mouth. 0 Active Vitamin D3, (VITAMIN D3) 2,000 unit tablet hydrocortisone 2.5 % Apply to affected 30 g 3 01/26/2019 Active creamIndications: area(s) 2 (two) Seborrheic times daily. dermatitis polyethylene glycol Take 17 g by mouth 238 g 3 01/26/2019 Active (MIRALAX) 17 daily. gram/dose powderIndications: Constipation, unspecified constipation type ARIPiprazole 10 [...] disorder, without psychotic features, Generalized anxiety disorder cyanocobalamin 1 mL by 12 mL 3 02/23/2019 Active (VITAMIN B-12) 1,000 Intramuscular route mcg/mL every 2 (two) injectionIndications weeks. : Vitamin B12 deficiency allopurinol 300 mg Take 1 tablet by 90 tablet 3 02/23/2019 Active tabletIndications: mouth daily. Uric acid stone in urine metformin ER 500 mg Take 1 tablet by 90 tablet 3 02/24/2019 Active 24 hr mouth daily with tabletIndications: breakfast. Type 2 diabetes mellitus with cardiac complication dulaglutide inject 0.75 mg 4 Syringe 4 02/24/2019 Active (TRULICITY) 0.75 under the skin mg/0.5 mL weekly. PnIjIndications: Type 2 diabetes mellitus with cardiac complication documented as of this encounter (statuses as of 02/24/2019) Active Problems Problem Noted Date Bradycardia 10/06/2018 [...] Overview: Added automatically from request for surgery [id number] Syncope 04/01/2017 Chest pain, rule out acute [...] Chest pain 06/12/2016 Coronary artery disease involving [place] coronary artery of [place]oux heart 06/12 with angina pectoris [place] (myocardial infarction) 06/12/2016 Type 2 diabetes mellitus without complication 06/12/2016 Essential hypertension 06/12/2016 History of alcohol abuse Overview: Sober for 16 years documented as of this encounter (statuses as of 02/24/2019) Resolved Problems Problem Noted Date Resolved Date Chest pain radiating to arm 08/08/2016 08/19/2016 Abdominal pain 07/19/2016 08/19/2016 History of epidural anesthesia 07/04/2016 08/19/2016 Morbid obesity with body mass index of 50 or higher 06/26/2016 08/19/2016 Obesity (BMI 30-39.9) 06/12/2016 08/19/2016 documented as of this encounter (statuses as of 02/24/2019) Immunizations Name Administration Dates Next Due Td [...] Treatment Date Type Specialty Care Team Description 02/26/2019 Nurse Visit Anti-coagulation Clinic Nurse, Christen Brown 03/15/2019 Hospital Encounter Surgery Dagoberto Luna MD [address] [place] [phone] 03/15/2019 Surgery Surgery Dagoberto Luna LUMBAR EPIDURAL MD Tania STEROID INJECTION [address] [place] [address] [phone] 03/24/2019 Office Visit Gastroenterology Ioana Mccarty MD [address] [place] [address] [phone] 03/29/2019 Hospital Encounter Surgery Dagoberto Luna MD [address] [place] [address] [phone] 03/29/2019 Surgery Surgery Dagoberto Luna LUMBAR EPIDURAL MD Tania STEROID INJECTION [address] [place] [address] [phone] 04/01/2019 Office Visit Internal Medicine Lilibeth Andrade MD [address] [facility] [address] [place] [address] [phone] 04/12/2019 Hospital Encounter Surgery Dagoberto Luna MD [address] [place] [phone] 04/12/2019 Surgery Surgery Dagoberto Luna LUMBAR EPIDURAL MD Tania STEROID INJECTION [address] [place] [phone] 04/27/2019 Office Visit Cardiology Robert Adkins MD [address] [place], [place] [address] 05/04/2019 Office Visit Cardiology Al Valiente MD 146 [facility] [address] [place] [address] [phone] 05/13/2019 Office Visit Internal Medicine Lilibeth Andrade MD [address] [place] [address] Dr [address] [place] [address] [phone] 05/27/2019 Appointment Cardiac Outpt-Simi, Electrophysiology Pacemaker/Icd 06/01/2019 Office Visit Internal Medicine Lilibeth Andrade MD [address] [place] [address] Dr [address] [place], [place] [address] 07/06/2019 Office Visit Internal Medicine Lilibeth Andrade MD [address] [place] [address] Dr [address] [place] [address] [phone] 07/13/2019 Office Visit Endocrinology Diabetes Zhen Jones MD & Metabolism [address] [place] [address] [phone] 10/27/2019 Office Visit Pulmonary Disease Max Aguiar [address] [place] [address] [address] [place] [address] [phone] 12/08/2019 Office Visit Ophthalmology Yariel Tineo MD [address] [place] [address] Name Type Priority Associated Diagnoses Date/Time PROSTATIC SPECIFIC LAB Add-on Secondary male 02/24/2019 4:17 PM ANTIGEN SCREEN hypogonadism CDT TESTOSTERONE LAB Routine Secondary male 02/24/2019 4:17 PM hypogonadism CDT Health Maintenance Due Date Last Done Comments HgA1C 01/25/2019 07/28/2018, 03/30/2018, 01/11/2018, Additional history exists LDL-C 07/28/2019 07/28/2018, 01/11/2018, 12/31/2017, Additional history exists FOOT EXAM 09/23/2019 09/22/2018, 09/22/2018, 04/22/2018, Additional history exists EYE EXAM 11/20/2019 11/19/2018, 11/13/2017 URINE MICROALBUMIN 02/07/2020 02/06/2019, 01/19/2018, 08/20/2016 CREATININE (SERUM) 02/24/2020 02/23/2019, 02/13/2019, 02/12/2019, Additional history exists PNEUMOCOCCAL 0-64 YEARS 02/24/2020 Postponed from COMBINED SERIES (1 of 1 - 1975 (Patient PPSV23) Refused) INFLUENZA VACCINE (#1) 2020 Postponed from 02/21/2019 (Patient Refused) DTaP,Tdap,and Td Vaccines 06/26/2027 06/26/2017, 03/19/2015 Postponed from (1 - Tdap) 06/27/2017 (Not Indicated) documented as of this encounter Implants Implanted Type Area Job Specification Writer Device Shelf Model / Identifier Expiration Serial / Date Lot Prolene Mesh MESH Right: Ethicon 12/20/2020 PMSK / Implanted: Qty: 1 on 07/04/2016 by Alfonso Martinez MD at [facility] [employer] PMSK / [id number] Stent-06/24/2016 Implanted: 06/24/2016 (Quantity not on file) documented as of this encounter Results Not on filedocumented in this encounter Visit Diagnoses Diagnosis Secondary male hypogonadism Other testicular hypofunction documented in this encounter Insurance Payer Benefit Plan / Subscriber ID Effective Phone Address Type Group Dates [employer] [id number] 2017-Lux [phone] HMO HEALTH [employer] HEALTH [employer] [phone] [place] [address] (Home) [place] [address] documented as of this encounter Advance Directives Name Relationship Healthcare Agent Communication Relationship Keaton Nelson Spouse Primary healthcare agent Elisabeth Soliz Sibling First alternate healthcare [phone] agent (Mobile)
--- OUTSIDE RECORDS SUMMARY | 2019-05-11 00:54 | XMS REPORT | Summary of Care ---
:1970 Author Organization [facility] Address [address] [place] [address] Care Team Providers Name Role Phone Lilibeth Andrade MD Primary Care Provider Libby Espinoza RN Unavailable Unavailable Al Valiente MD Unavailable Junito Quezada MD Unavailable Karena Anand NETWORK DEVELOPER Unavailable Unavailable Tito Kirkpatrick Unavailable Reason for Visit Reason Comments Refill Request Encounter Details Date Type Department Care Team Description 02/23/2019 Refill [facility] Pediatric and Lilibeth Andrade, Refill Request Adult Primary Care- MD Lewis [address] [facility] 146 [facility], [address] [place] [address] [place] [address] Allergies Active Allergy Reactions Severity Noted Date [...] times daily as needed for Constipation. Insulin [place], Use as directed, 400 Each 1 09/19/2017 [...] (LIPITOR) 40 mg mouth at bedtime. tablet metformin ER 500 mg Take 1 tablet by 270 tablet 3 10/13/2018 Active 24 hr mouth 2 (two) times tabletIndications: daily. Type 2 diabetes mellitus with cardiac complication furosemide (LASIX) Take 80 mg by mouth [...] powderIndications: times daily with Other fatigue meals. dulaglutide inject 0.75 mg 4 Syringe 3 12/13/2018 Active (TRULICITY) 0.75 under the skin mg/0.5 mL weekly. PnIjIndications: Type 2 diabetes mellitus with cardiac complication pantoprazole 40 mg Take 1 tablet by [...] mouth daily. Uric acid stone in urine documented as of this encounter (statuses as [...] Overview: Added automatically from request for surgery [id number] Syncope 04/01/2017 Chest pain, rule out acute [...] Chest pain 06/12/2016 Coronary artery disease involving [place] coronary artery of [place] heart 06/12 with angina pectoris [place] (myocardial [...] Endocrinology Diabetes Zhen Jones MD & Metabolism [address] [place] [address] [phone] 02/26/2019 Nurse Visit Anti-coagulation Clinic Nurse, Christen Brown 03/15/2019 Hospital Encounter Surgery Dagoberto Luna MD [address] [place] [phone] 03/15/2019 Surgery Surgery Dagoberto Luna LUMBAR EPIDURAL MD Tania STEROID INJECTION [address] [place] [address] [phone] 03/24/2019 Office Visit Gastroenterology Ioana Mccarty MD [address] [place] [address] [phone] 03/29/2019 Hospital Encounter Surgery Dagoberto Luna MD [address] [place] [address] [phone] 03/29/2019 Surgery Surgery Dagoberto Luna LUMBAR EPIDURAL MD Tania STEROID INJECTION [address] [place] [address] [phone] 04/01/2019 Office Visit Internal Medicine Lilibeth Andrade MD [address] [place] [address] 04/12/2019 Hospital Encounter Surgery Dagoberto Luna MD [address] [place] [phone] 04/12/2019 Surgery Surgery Dagoberto Luna LUMBAR EPIDURAL MD Tania STEROID INJECTION [address] [place] [phone] 04/27/2019 Office Visit Cardiology Robert Adkins MD [id number] [place], [place] [address] 05/04/2019 Office Visit Cardiology Al Valiente MD [address] [facility] [address] [place] [address] [phone] 05/13/2019 Office Visit Internal Medicine Lilibeth Andrade MD [address] [place] [address] Dr [address] [place] [address] [phone] 05/27/2019 Appointment Cardiac Outpt-Simi, Electrophysiology Pacemaker/Icd 06/01/2019 Office Visit Internal Medicine Lilibeth Andrade MD [address] [place] [address] Dr [address] [place] [address] [phone] 07/06/2019 Office Visit Internal Medicine Lilibeth Andrade MD [address] [place] [address] Dr [address] [place], [place] [address] 10/27/2019 Office Visit Pulmonary Disease Max Aguiar [address] [place] [address] Dr [address] [place] [phone] 12/08/2019 Office Visit Ophthalmology Yariel Tineo MD [address] [place] [address] Health Maintenance Due Date Last Done [...] of this encounter Implants Implanted Type Area Sheet Cutter Device Shelf Model / Identifier Expiration Serial / Date Lot Prolene Mesh MESH Right: Ethicon 12/20/2020 PMSK / Implanted: Qty: 1 on 07/04/2016 by Alfonso Martinez MD at [facility] [employer] PMSK / [id number] Stent-06/24/2016 Implanted: 06/24/2016 (Quantity not on file) documented as of this encounter Results Not on filedocumented in this encounter Insurance Payer Benefit Plan / Subscriber ID Effective Phone Address Type Group Dates [facility] [id number] 2017-Pre [phone] [address] HMO HEALTH CHOICE HEALTH CHOICE sent [phone] [place] [address] BE[employer]ON [employer]ON [id number] 2016-Pre [phone] [facility] sent [phone] [facility] , [address] [place] [address] documented as of this encounter Advance Directives Name Relationship Healthcare Agent Communication Relationship Keaton Thomasjanae Spouse Primary healthcare agent Elisabeth Soliz Sibling First alternate healthcare [phone] agent (Mobile)
--- OUTSIDE RECORDS SUMMARY | 2019-05-11 00:55 | XMS REPORT | Summary of Care ---
:1970 Author Organization [facility] Address [address] [place] [id number] Care Team Providers Name Role Phone Lilibeth Andrade MD Primary Care Provider Libby Espinoza RN Unavailable Unavailable Al Valiente MD Unavailable Junito Quezada MD Unavailable Karena Anand PHOTOENGRAVING PROOFER APPRENTICE Unavailable Unavailable Tito Kirkpatrick Unavailable Reason for Visit Reason Comments Follow-up Diabetes Mellitus II Auth/Cert Status Reason Specialty Diagnoses / Referred By Referred To Procedures Contact Contact Clinical Medical Diagnoses Secondary male hypogonadism Adc Lab Laboratory Procedures psa [address] [facility] [place] [address] Encounter Details Date Type Department Care Team Description 02/24/2019 Office Visit [facility] Zhen Jones MD 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); Endocrinology- [address] [place] [address] Secondary male hypogonadism; [facility] Dyslipidemia; Professional Office [place], [place] Essential hypertension; Building [address] High serum aldosterone 146 [facility] [phone] [address] [place] [address] Allergies Active Allergy Reactions Severity Noted Date [...] 02/24/2019) Medications Medication Sig Dispensed Refills Start End Date Status Date docusate 100 mg Take 1 capsule by 30 capsule 0 Active capsule mouth 2 (two) 7 times daily as needed for Constipation. Insulin [place], Use as directed, 400 Each 1 Active Disposable, (RELION QID, DX:E11.9 8 PEN NEEDLES) 32 gauge x 5/32" Ndle Diclofenac Sodium 1 Take 2-4 grams 100 g 3 Active % gelIndications: three times a day 8 Chronic back pain as needed for greater than 3 pain months duration pyridoxine HCl, Take by mouth. 0 Active vitamin B6, (VITAMIN B-6 ORAL) nitroglycerin Place 1 tablet 1 Bottle 1 Active (NITROSTAT) 0.4 mg under the tongue 8 sublingual tablet every 5 (five) minutes as needed for Chest pain. magnesium oxide 400 Take 1 tablet by 90 tablet 3 Active mg magnesium mouth daily. 8 TabIndications: Low magnesium level foLIC acid 1 mg Take 1 tablet by 90 tablet 3 Active tabletIndications: mouth daily. 8 High plasma homocystine methocarbamol 750 Take 750 mg by 0 Active mg tablet mouth 2 (two) times daily. buprenorphine-nalox Place 8 mg under 0 Active one (SUBOXONE) 8-2 the tongue every mg sublingual film 12 (twelve) hours as needed for Pain (scale 7-10). clopidogrel Take 1 tablet by 90 tablet 3 Active (PLAVIX) 75 mg mouth daily. 9 tablet metOLazone 2.5 mg Once daily PRN 30 tablet 2 Active tabletIndications: for weight gain > 9 Vitamin B12 3 lbs deficiency atorvastatin Take 1 tablet by 90 tablet 3 Active (LIPITOR) 40 mg mouth at bedtime. 9 tablet furosemide (LASIX) Take 80 mg by 0 Active 80 mg tablet mouth every morning and evening. aMILoride 5 mg Take 1 tablet by 60 tablet 2 Active tabletIndications: mouth 2 (two) 9 Hypokalemia times daily. warfarin 10 mg Take as directed 60 tablet 3 Active tablet by AntiCoag 9 Clinic based on INR results. warfarin 7.5 mg Take as directed 90 tablet 3 Active tablet by AntiCo 9 Clinic based on INR results. ferrous sulfate Take 1 tablet by 270 tablet 3 Active (IRON) 325 mg (65 mouth 3 (three) 9 mg iron) times daily with tabletIndications: meals. Iron deficiency anemia due to chronic blood loss KCL 20 mEq Take 3 tablets by 180 tablet 2 Active tabletIndications: mouth 2 (two) 9 Acute on chronic times daily. diastolic congestive heart failure, Hypopotassemia proMETHazine 25 mg Take 1 tablet by 30 tablet 3 Active tabletIndications: mouth every 6 9 Non-intractable (six) hours as vomiting with needed for Nausea nausea, unspecified and Vomiting vomiting type (N/V). Ranolazine 1,000 mg Take 1 tablet by 60 tablet 4 Active tablet mouth 2 (two) 9 times daily. cholestyramine 4 Take 1 Packet by 1 Can 1 Active gram mouth 3 (three) 9 powderIndications: times daily with Other fatigue meals. pantoprazole 40 mg Take 1 tablet by 90 tablet 3 Active EC tablet mouth 2 (two) 9 times daily. testosterone Apply 2 Pumps to 75 g 3 Active (ANDROGEL) 20.25 area(s) daily. 9 mg/1.25 gram (1.62 %) gel pumpIndications: Low testosterone clonazePAM 1 mg Take 1 pill PO in 120 tablet 1 Active tabletIndications: the AM, 1 PO in 9 Generalized anxiety the afternoon, 1 disorder, Panic pill PO in the disorder without evening. May take agoraphobia additional 1 pill as needed acute anxiety. Cholecalciferol, Take by mouth. 0 Active Vitamin D3, (VITAMIN D3) 2,000 unit tablet hydrocortisone 2.5 Apply to 30 g 3 Active % creamIndications: affected area(s) 9 Seborrheic 2 (two) times dermatitis daily. polyethylene glycol Take 17 g by 238 g 3 Active (MIRALAX) 17 mouth daily. 9 gram/dose powderIndications: Constipation, unspecified constipation type ARIPiprazole 10 mg Take 1 tablet by 30 tablet 1 Active tabletIndications: mouth daily. 9 Generalized anxiety disorder, Panic disorder without agoraphobia, Severe episode of recurrent major depressive disorder, without psychotic features desvenlafaxine Take 2 tablets by 60 tablet 1 Active succinate (PRISTIQ) mouth daily. 9 100 mg 24 hr tabletIndications: Severe episode of recurrent major depressive disorder, without psychotic features, Generalized anxiety disorder cyanocobalamin 1 mL by 12 mL 3 Active (VITAMIN B-12) Intramuscular 9 1,000 mcg/mL route every 2 injectionIndication (two) weeks. s: Vitamin B12 deficiency allopurinol 300 mg Take 1 tablet by 90 tablet 3 Active tabletIndications: mouth daily. 9 Uric acid stone in urine metformin ER 500 mg Take 1 tablet by 90 tablet 3 Active 24 hr mouth daily with 9 tabletIndications: breakfast. Type 2 diabetes mellitus with cardiac complication dulaglutide inject 0.75 mg 4 Syringe 4 Active (TRULICITY) 0.75 under the skin 9 mg/0.5 mL weekly. PnIjIndications: Type 2 diabetes mellitus with cardiac complication metformin ER 500 mg Take 1 tablet by 270 tablet 3 02/25/20 Discontinued 24 hr mouth 2 (two) 9 19 tabletIndications: times daily. Type 2 diabetes mellitus with cardiac complication dulaglutide inject 0.75 mg 4 Syringe 3 02/25/20 Discontinued (TRULICITY) 0.75 under the skin 9 19 mg/0.5 mL weekly. PnIjIndications: Type 2 diabetes [...] Overview: Added automatically from request for surgery [id number] Syncope 04/01/2017 Chest pain, rule out acute [...] Chest pain 06/12/2016 Coronary artery disease involving [place] coronary artery of [place] heart 06/12 with angina pectoris VT (myocardial infarction) 06/12/2016 Type 2 diabetes mellitus [...] Sign Reading Time Taken Comments Blood Pressure 116/74 02/24/2019 3:14 PM CDT Pulse 86 02/24/2019 3:14 PM CDT Temperature - - Respiratory Rate 16 02/24/2019 3:14 PM CDT Oxygen Saturation - - Inhaled Oxygen Concentration - - Weight 132.9 kg (293 lb) 02/24/2019 3:14 PM CDT Height - - Body Mass Index 42.04 02/13/2019 1:45 AM CDT documented in this encounter Progress Notes Zhen Jones MD - 02/24/2019 3:30 PM CDT chief complaint:Type 2 diabetes mellitus, Secondary hypogonadism- follow up HPI Patient is a 48 year old /White male who is here today for Diabetes Mellitus Type 2. Patient's diabetes is complicated by atherogenic diet, hyperlipidemia, hypertension , macrovascular complications: Congestive Heart Failure, neuropathy: Peripheral and lower extremity and obesity. Per cardiology: PMH HFpEF, DM, HTN, obesity, GREGORIO, pAfib, PE, and CAD STEMI in 11/2015 treated with RCA PCI in [facility] in [place]. 2 weeks later he had recurrent chest pain. Repeat LHC showed patent stent withnon-obstructive disease elsewhere. He has had intermittent chest pain for which he was started on Imdur without much improvement. Then he was started on ranexa. LHC in 11/2016 showed non-obstructive CAD--no need for intervention. He is on C-PAP for GREGORIO. H/o AAA Type 2 diabetes mellitus No personal h/o pancreatitis, heavy alcohol use, gastroparesis and no family h/ o pancreatic or thyroid cancer . No personal h/o UTI, yeast infection. NICHOLAS was in 09/2018 with A1C improved from 7.5 in 03/2018 to 6.2. Patient has no acute problems today. Reports semin compliance with Diabetes regimen: Metformin ER 500 mg bid ( he skipped dose most time with concerns for hypoglycemia states, sugar dropped to 80s if taking metformin ) Sloanulicity 0.75 mg renae Patient checks glucose twice a day Average Glucose readings: AM fasting 99-210, before dinner 89-226 Hypoglycemia: None Reports compliance with diet . But unable to exercise due to back pain and CHF Hypogonadism: Baseline testosterone total 20-30 range twice Cause: Secondary to chronic past opIoid use Prolactin minimally elevated. No galactorrhea Symptoms: fatigue, mood changes, depression, loss of libido, infertility, muscle weakness, gynecomastia Admits to h/o chronic use of [place] since 1989's for back pain, infertility ( 30 years of marriage), ED and low libido, panic attacks. Current meds: androgel 2 PUMPS DAILY. Still has low libido and fatigue Dr Andrade checked hormones including repeated TFT's, PTH, ACTh stim, plasma metanephrine- all normal. HTN: Diagnosed several years ago, had elevation up to 230's systolic and normal potassium, until started aldactone, resulted in normalization of BP but developed hypokalemia ( On potassium replacement now). Later on Aldactone switched to Amiloride due to gynecomastia. Well controlled at least since 05/2017 ( [facility] records) Current medications: Amiloride 5 mg bid, Hypokalemia: Takes potassium 20 mg TID and Lasix 80 mg bid, As needed Metoprolol 12.5 mg XL daily, Off Metolazone 2.5 mg as needed Brought BP log. At home at goal Elevated aldosterone level: Not primary aldosteronism Patient states he was not taking care of his health until 2 years ago, when he was hospitalized for 100 % blocked RCA, underwent PTCA, had h/o HTN, smoking ( quit 4 years ago) and alcohol use ( quit 15years ago). Patient was seen by nephrology,. Dr Rodriguez, checked aldosterone and renin while he was hospitalizedfor recurrent syncope, a serum aldosterone was ordered which resulted very high - 84.7. Renin was 13.1. 10/2017: Aldosterone 129 and renin 10 He was referred to a school plant consultant who ordered 24 hour urine aldosterone which was 164.7mcg/24h. (24 hour urine sodium was 96 in 3000 ml urine sample)). CT abdomen showed no adrenal masses. Patient was referred to surgery, Dr Martinez who then referred patient to radiology for AVS, while patient was at radiology, radiologist called Dr Rosa about ? Diagnosis of aldosteronism, patient was then overbooked in endo clinic and here for evaluation. Patient and his are very frustrated with back and forth with different doctors and patient not feeling well in terms of : fatigue- extremely tired ( has iron deficiency anemia as well and normal reported EGd and colonoscopy). DIABETIC HEALTH MAINTENANCE Last Ophthalmology visit was 12/2018, no DR Patient on JOSIANE/ARB therapy - No Patient on ASA therapy - Yes. Patient on Statin/Fibrate therapy - Yes. Patient instructed about daily feet exams, last sensation exam was 02/24/2019 Patient has received Nutrition/Diet/Diabetes Education on today. HISTORY Past Medical History: Diagnosis Date AAA (abdominal aortic aneurysm) 3 cm Anxiety CHF (congestive heart failure) 2-liter fluid restriction; Dr. Valiente is hotbed operator Degenerative disc disease, lumbar on CT scan Diabetes Hernia s/p surgery 06/2016 History of alcohol abuse Stopped 1999 History of pernicious anemia HLD (hyperlipidemia) Hypertension Kidney stones calcium oxalate Lung nodule largest was 7mm on CT scan in 07/2017. smoking history. will need repeat in 6- 12 months. VT (myocardial infarction) November 2015, 1 stent in RCA Microcytic anemia low MCV 2016 Right bundle branch block Uveitis Past Surgical History: Procedure Laterality Date COLONOSCOPY Left 04/22/2017 Surgeon: Ioana Mccarty MD; [facility] ESOPHAGOGASTRODUODENOSCOPY Left 04/22/2017 Surgeon: Ioana Mccarty MD; [facility] EXPLORATION, CAROTID ARTERY Right 10/29/2017 EXTRACORPOREAL SHOCKWAVE LITHOTRIPSY 1999, 2014 INGUINAL HERNIORRHAPHY N/A 07/04/2016 Surgeon: Alfonso Martinez MD; [facility] LUMBAR EPIDURAL STEROID INJECTION N/A 03/10/2017 Surgeon: Dagoberto Luna MD; [facility] LUMBAR EPIDURAL STEROID INJECTION N/A 04/14/2017 Surgeon: Dagoberto Luna MD; [facility] LUMBAR EPIDURAL STEROID INJECTION N/A 04/28/2017 Surgeon: Dagoberto Luna MD; [facility] PILL CAM (SHX) Left 07/14/2017 Surgeon: Motility, Endoscopy; Location: [facility] RIGHT HEART CATHETERIZATION 11/25/2016 Family History Problem Relation Age of Onset Hypertension Father High cholesterol Father Asthma Father CHF (congestive heart failure) Father COPD (chronic obstructive pulmonary disease) Father Leukemia Father Hypertension Mother High cholesterol Mother Cancer Paternal Grandmother unsure which kind Leukemia Maternal Uncle Social History Socioeconomic History Marital status: Spouse [...] file Gets together: Not on file Attends oriental orthodox service: Not on file Active member of [...] No walker. Lives at home with . REVIEW OF SYSTEMS Constitutional: + weight gain+ fatigue Eyes: denies blurry vision, denies decreased vision and denies diplopia. Nose/Sinuses: denies congestion and denies rhinorrhea . Mouth/Throat: denies dysphagia and denies hoarseness. Cardiovascular: denies chest pain Respiratory: denies chest congestion and denies shortness of breath. Gastrointestinal: denies abdominal pain, denies constipation, denies diarrhea and denies nausea. Genitourinary: denies dysuria. + ED, Psych: Controlled symptoms - sees psychiatry Neuro: denies headache and denies tremor. Endocrine: + Low libido PHYSICAL EXAM POCT GLU (mg/dL) Date Value 09/02/2018 315 (H) CREATININE (mg/dL) Date Value 02/23/2019 1.02 CREATININE-Q (mg/dL) Date Value 11/24/2017 0.88 CHOL (mg/dL) Date Value 07/28/2018 157 HDL (mg/dL) Date Value 07/28/2018 33 (L) LDL CHOL (mg/dL) Date Value 07/28/2018 73 TRIG (mg/dL) Date Value 07/28/2018 254 (H) MICROAL/CR (ug/mmol creatinine) Date Value 02/06/2019 542 POCT HBA1C (%) Date Value 02/24/2019 8.2 03/30/2018 7.5 (A) HGB A1C (% NGSP) Date Value 07/28/2018 6.2 (H) BP 116/74 (BP Location: Left arm, Patient Position: Sitting, BP CUFF SIZE: Adult Large) | Pulse 86| Resp 16 | Wt 293 lb (132.9 kg) | BMI 42.04 kg/m {General: alert, oriented times three, no apparent distress, appearing age appropriate. Skin: skin color and turgor are normal Head: normocephalic, no masses, lesions, tenderness or abnormalities. Eyes: anicteric sclera, pupils are equally round and reactive to light. Neck: +acanthosis nigricans Thyroid: normal size and consistency to palaption Lungs: good diaphragmatic excursion, lungs clear to auscultation bilaterally. Heart: regular rate and rhythm, no murmurs, gallops or rubs. Abdomen: abdomen soft, non-tender, normal active bowel sounds, + obese. Neuro: unremarkable without focal findings. Extremities/Musculoskeletal: no cyanosis, no edema . Sensory exam of the foot is normal. Monofilament exam with sensation Right: 5/5 , Left: 5/5. Lesions absent Ulcers Absent Peripheral pulses present 2+. Component Latest Ref Rng & Units 02/21/2017 02/21/2017 02/21/2017 5:09 PM 5:09 PM 5:09 PM ANTI-ISLET <1:4 <1:4 GLAD AB 0.0 - 5.0 IU/mL <5.0 C-PEPTIDE 0.8 - 3.5 ng/mL 6.0 (H) Component Latest Ref Rng & Units 07/16/2017 07/16/2017 4:43 PM 4:43 PM RENIN ng/mL/hr 13.1 ALDOST ng/dL 84.3 Component Latest Ref Rng & Units 08/30/2016 08/30/2016 08/30/2016 08/30/2016 9:00 AM 8:30 AM 7:59 AM 7:59 AM [place] 0 4.5 - 23.0 ug/dL 6.3 [place] 30 ug/dL 23.4 [place] 60 ug/dL 18.0 ACTH 7 - 69 pg/mL 11 Component Latest Ref Rng & Units 08/20/2016 08/20/2016 08/20/2016 08/20/2016 8:26 AM 8:26 AM 8:26 AM 8:26 AM METANEPH 0.00 - 0.49 nmol/L 0.10 NORMETNEPH 0.00 - 0.89 nmol/L 0.79 METAPF INT See Note TSH 0.45 - 4.70 mIU/L 3.09 FREE T4 0.78 - 2.20 ng/dL 1.10 [place] AM 4.5 - 23.0 ug/dL 8.5 Component Latest Ref Rng & Units 07/16/2017 07/16/2017 4:43 PM 4:43 PM RENIN ng/mL/hr 13.1 ALDOST ng/dL 84.3 Component Latest Ref Rng & Units 04/18/2018 03/31/2018 03/31/2018 03/31/2018 8:30 AM 8:47 AM 8:47 AM 8:47 AM TESTOST 300 - 890 ng/dL 21 (L) Sex Hormone Binding Globulin 11 - 80 nmol/L 27 FREE TESTO 47 - 244 pg/mL 4 (L) %FREE TEST 1.6 - 2.9 % 1.8 LH mIU/mL 1.04 PROLACTIN 2.6 - 13.1 ng/mL 17.1 (H) TESTOSTERONE, TOTAL-Q 250 - 827 ng/dL 25 (L) Component Latest Ref Rng & Units 02/24/2019 03/31/2018 4:17 PM 8:47 AM PSA <=4.00 ng/mL 0.25 0.17 Component Latest Ref Rng & Units 07/28/2018 9:52 AM TESTOST 132.0 - 813.0 ng/dL 241.0 ASSESSMENT 1. Type 2 diabetes mellitus with cardiac complication -A1C (target=6-7%): 6.2 (10/09)--8.298/190 worsened from previous , 2/2 off metformin most time -glucose range: variable per meal/insulin - without symptomatic hypoglycemia -complication: neuropathy nephropathy macrovascular: CAD -medication limitation: deferred insulin in past -diet: fast food when he is on the road -exercise: limited by joint pain Plan -reinterated to check glucose BID alternating fasting and 2 hours post meals -urged compliance with diet/exercise - POCT HEMOGLOBIN A1C TEST - reduce metformin ER 500 mg 24 hr tablet; Take 1 tablet by mouth daily with breakfast. Dispense: 90 tablet; Refill: 3 - dulaglutide (TRULICITY) 0.75 mg/0.5 mL PnIj; inject 0.75 mg under the skin weekly. Dispense: 4 Syringe; Refill: 4 2. Secondary male hypogonadism Comment: Improved testosterone level at goal with androgel 2 pumps daily. H/o CAD-start low dose testosterone H/o DVT/ PE- on anticoagulation H/o GREGORIO- controlled Plan: I discussed complications of testosterone replacement with patient including h /o DVT/PE, prostate cancer, uncontrolled BPH, severe uncontrolled GREGORIO Disussed benefits of testosterone replacement including bone health Discussed side effects of testosterone including BPH symptoms, hemoconcentration , gynecomastia, azoospermia Discussed need to monitor PSA, testosterone and HCT periodically while on treatment Discussed benefits and side effects of topical versus testosterone shots Patient voices understanding to above - PROSTATIC SPECIFIC ANTIGEN SCREEN; Future - TESTOSTERONE; Future 3. Dyslipidemia Comment: Improved. Takes Lipitor 40 mg 4. Essential hypertension 5. High serum aldosterone Comment: controlled with current meds. Secondary to high renin. Elevated renin due to diuretics. Other possible cause of high aldosterone and renin is heart disease. Primary aldosteronism is ruled out given high renin. There is no indication to persue work up for PA given negative screen for PA. AVS is not indicated neither is adrenalectomy. 24 Urine test for aldosterone level is also invalid given low sodium in 24 hours Plan: Continue current BP meds documented in this encounter Plan of Treatment Date Type Specialty Care Team Description 02/26/2019 Nurse Visit Anti-coagulation Clinic Nurse, Christen Brown 03/15/2019 Hospital Encounter Surgery Dagoberto Luna MD [id number] [place] [phone] 03/15/2019 Surgery Surgery Dagoberto Luna LUMBAR EPIDURAL MD Tania STEROID INJECTION [id number] [place] [phone] 03/24/2019 Office Visit Gastroenterology Ioana Mccarty MD [address] [place] [address] [phone] 03/29/2019 Hospital Encounter Surgery Dagoberto Luna MD [id number] [place] [phone] 03/29/2019 Surgery Surgery Dagoberto Luna LUMBAR EPIDURAL MD Tania STEROID INJECTION [id number] [place] [phone] 04/01/2019 Office Visit Internal Medicine Lilibeth Andrade MD [address] [place] [address] 04/12/2019 Hospital Encounter Surgery Dagoberto Luna MD [id number] [place] [phone] 04/12/2019 Surgery Surgery Dagobreto Luna LUMBAR EPIDURAL MD Tania STEROID INJECTION [address] [place] [phone] 04/27/2019 Office Visit Cardiology Robert Adkins MD [address] [facility] [id number] [place], [place] [address] 05/04/2019 Office Visit Cardiology Al Valiente MD [address] [place] [address] [address] [place], [place] [address] 05/13/2019 Office Visit Internal Medicine Lilibeth Andrade MD [address] [place] [address] Dr [address] [place] [address] [phone] 05/27/2019 Appointment Cardiac Outpt-Simi, Electrophysiology Pacemaker/Icd 06/01/2019 Office Visit Internal Medicine Lilibeth Andrade MD [address] [place] [address] Dr [address] [place] [phone] 07/06/2019 Office Visit Internal Medicine Lilibeth Andrade MD [address] [place] [address] Dr [address] [place] [address] [phone] 07/13/2019 Office Visit Endocrinology Diabetes Zhen Jones MD & Metabolism [address] [place] [address] [phone] 10/27/2019 Office Visit Pulmonary Disease Max Aguiar [address] [place] [address] Dr [address] [place] [address] [phone] 12/08/2019 Office Visit Ophthalmology Yariel Tineo MD [address] [place] [address] Name Type Priority Associated Diagnoses Date/Time TESTOSTERONE LAB Routine Secondary male hypogonadism 02/24/2019 4:17 PM CDT Name Type Priority Associated Diagnoses Order Schedule TESTOSTERONE LAB Routine Secondary male hypogonadism 1 Occurrences starting 02/24/2019 until 03/12/2019 Health Maintenance Due Date Last Done Comments [...] of this encounter Implants Implanted Type Area Service Specialist Device Shelf Model / Identifier Expiration Serial / Date Lot Prolene Mesh MESH Right: Ethicon 12/20/2020 PMSK / Implanted: Qty: 1 on 07/04/2016 by Alfonso Martinez MD at [facility] [employer] PMSK / [id number] Stent-06/24/2016 Implanted: 06/24/2016 (Quantity not on file) documented as of this encounter Procedures Procedure Name Priority Date/Time Associated Diagnosis Comments POCT HEMOGLOBIN A1C Routine 02/24/2019 Type 2 diabetes Results for this TEST mellitus with cardiac procedure are in the complication results section. documented in this encounter Results PROSTATIC SPECIFIC ANTIGEN SCREEN (02/24/2019 4:17 PM CDT) PSA 0.25 <=4.00 ng/mL [facility] Specimen Blood Narrative Performed At Biotin has been reported to cause a negative [facility] bias, interpret results relative to patient's use of biotin. 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MO [phone] [place] [address] (Home) [place] [address] documented as of this encounter Advance Directives Name Relationship Healthcare Agent Communication Relationship Keaton Leslie Spouse Primary healthcare agent [email or web address] Elisabeth Soliz Sibling First alternate healthcare [phone] agent (Mobile)
--- OUTSIDE RECORDS SUMMARY | 2019-05-11 00:56 | XMS REPORT | Summary of Care ---
:1970 Author Organization [facility] Address [address] [place] [address] Care Team Providers Name Role Phone Lilibeth Andrade MD Primary Care Provider Libby Espinoza RN Unavailable Unavailable Al Valiente MD Unavailable Junito Quezada MD Unavailable Karena Anand CORRUGATED FASTENER DRIVER Unavailable Unavailable Tito Kirkpatrick Unavailable Reason for Visit Reason Comments Follow-up Diabetes Mellitus II Auth/Cert Status Reason Specialty Diagnoses / Referred By Referred To Procedures Contact Contact Clinical Medical Diagnoses Secondary male hypogonadism Adc Lab Laboratory Procedures psa [address] [facility] [place] [address] Encounter Details Date Type Department Care Team Description 02/24/2019 Office Visit [facility] Zhen Jones MD 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); Endocrinology- [address] [place] [address] Secondary male hypogonadism; [facility] Dyslipidemia; Professional Office [place], [place] Essential hypertension; Building [address] High serum aldosterone [address] [facility] [phone] [address] [place] [address] Allergies Active Allergy Reactions Severity [...] times daily as needed for Constipation. Insulin [place], Use as directed, 400 Each 1 Active [...] Overview: Added automatically from request for surgery [id number] Syncope 04/01/2017 Chest pain, rule out acute [...] Chest pain 06/12/2016 Coronary artery disease involving [place] coronary artery of chemehuevi heart 06/12 with angina pectoris [place] (myocardial [...] in 11/2015 treated with RCA PCI in [facility] in [place]. 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 Valiente is patient escort Degenerative disc disease, lumbar on CT scan Diabetes Hernia s/p surgery 06/2016 History of alcohol abuse Stopped 1999 History of pernicious anemia HLD (hyperlipidemia) Hypertension Kidney stones calcium oxalate Lung nodule largest was 7mm on CT scan in 07/2017. smoking history. will need repeat in 6- 12 months. [place] (myocardial infarction) November 2015, 1 stent in [...] file Gets together: Not on file Attends episcopal service: Not on file Active member of [...] MD [id number] [place] [address] [phone] 03/15/2019 Surgery Surgery Dagoberto Luna LUMBAR EPIDURAL MD Tania STEROID INJECTION [id number] [place] [address] [phone] 03/24/2019 Office Visit Gastroenterology Ioana Mccarty MD [address] [place] [address] [phone] 03/29/2019 Hospital Encounter Surgery Dagoberto Luan MD [address] [place] [address] [phone] 03/29/2019 Surgery Surgery Dagoberto Luna LUMBAR EPIDURAL MD Tania STEROID INJECTION [id number] [place] [address] [phone] 04/01/2019 Office Visit Internal Medicine Lilibeth Andrade MD [address] [place] [address] 04/12/2019 Hospital Encounter Surgery Dagoberto Luna MD [id number] [place] [phone] 04/12/2019 Surgery Surgery Dagoberto Luna LUMBAR EPIDURAL MD Tania STEROID INJECTION [address] [place] [address] 04/27/2019 Office Visit Cardiology Robert Adkins MD [address] [facility] [address] [place], [place] [address] 05/04/2019 Office Visit Cardiology Al Valiente MD [address] [place] [address] [address] [place] [address] 05/13/2019 Office Visit Internal Medicine Lilibeth Andrade MD [address] [place] [address] Dr Lewis [address] [place] [address] [phone] 05/27/2019 Appointment Cardiac Outpt-Simi, Electrophysiology Pacemaker/Icd 06/01/2019 Office Visit Internal Medicine Lilibeth Andrade MD [address] [place] [address] Dr Lewis [address] [place] [address] [phone] 07/06/2019 Office Visit Internal Medicine Lilibeth Andrade MD [address] [place] [address] Dr Lewis [address] [place] [address] [phone] 07/13/2019 Office Visit Endocrinology Diabetes Zhen Jones MD & Metabolism [address] [place] [address] [phone] 10/27/2019 Office Visit Pulmonary Disease Max Aguiar [address] [place] [address] Dr [address] [place] [address] [phone] 12/08/2019 Office Visit Ophthalmology Yariel Tineo MD [address] [place] [address] Name Type Priority Associated Diagnoses Date/Time [...] of this encounter Implants Implanted Type Area Director Index Device Shelf Model / Identifier Expiration Serial / Date Lot Prolene Mesh MESH Right: Ethicon 12/20/2020 PMSK / Implanted: Qty: 1 on 07/04/2016 by Alfonso Martinez MD at [facility] [employer] PMSK / [id number] Stent-06/24/2016 Implanted: 06/24/2016 (Quantity not on file) documented as of this encounter Procedures Procedure Name Priority Date/Time Associated Diagnosis Comments POCT HEMOGLOBIN A1C Routine 02/24/2019 Type 2 diabetes Results for this TEST mellitus with cardiac procedure are in the complication results section. documented in this encounter Results PROSTATIC SPECIFIC ANTIGEN SCREEN (02/24/2019 4:17 PM CDT) PSA 0.25 <=4.00 ng/mL [facility] Specimen Blood Narrative Performed At Biotin has been reported to cause a negative [facility] bias, interpret results relative to patient's use of biotin. Performing Organization Address City/State/Zipcode Phone Number [facility] CLIA: [id number], [address] [place] [address] POCT HEMOGLOBIN A1C TEST [...] Effective Phone Address Type Group Dates HIM [facility] [id number] 2017-Lux [phone] [phone] [place] [address] (Home) [place] [address] documented as of this encounter Advance Directives Name Relationship Healthcare Agent Communication Relationship Keaton Leslie Spouse Primary healthcare agent Elisabeth Soliz Sibling First alternate healthcare [phone] agent (Mobile)
--- OUTSIDE RECORDS SUMMARY | 2019-05-11 00:57 | XMS REPORT | Summary of Care ---
:1970 Author Organization [facility] Address [address] [place] [address] Care Team Providers Name Role Phone Lilibeth Andrade MD Primary Care Provider Libby Espinoza RN Unavailable Unavailable Al Valiente MD Unavailable Junito Quezada MD Unavailable Karena Anand GENERAL MAINTENANCE MECHANIC Unavailable Unavailable Tiot Kirkpatrick Unavailable Reason for Visit Reason Comments Results Encounter Details Date Type Department Care Team Description 02/24/2019 Telephone [facility] Cardiology, Robert Adkins, Results [facility] [address] [place] [address] [place] [address] [address] [place] [address] [place], [place] [address] Allergies Active Allergy Reactions Severity Noted Date [...] times daily as needed for Constipation. Insulin [place], Use as directed, 400 Each 1 Active [...] directed 60 tablet 3 Active tablet by [facility] Clinic based on INR results. warfarin 7.5 mg Take as directed 90 tablet 3 Active tablet by [facility] Clinic based on INR results. ferrous sulfate Take 1 tablet by 270 tablet 3 Active (IRON) 325 mg (65 mouth 3 (three) 9 mg iron) times daily with tabletIndications: meals. Iron deficiency anemia due to chronic blood loss proMETHazine 25 mg Take 1 tablet by [...] Type 2 diabetes mellitus with cardiac complication KCL 20 mEq Take 3 tablets by 180 tablet 2 Active tabletIndications: mouth daily with 9 Acute on chronic breakfast AND 2 diastolic tablets every day congestive heart at 1200 (noon) failure, AND 3 tablets Hypopotassemia every evening. KCL 20 mEq Take 3 tablets by 180 tablet 2 02/25/20 Discontinued tabletIndications: mouth 2 (two) 9 19 Acute on chronic times daily. diastolic congestive heart failure, Hypopotassemia KCL 20 mEq Take 3 tablets by 180 tablet 2 02/25/20 Discontinued tabletIndications: mouth 3 (three) 9 19 Acute on chronic times daily. diastolic congestive heart failure, Hypopotassemia documented as of this encounter (statuses as [...] Overview: Added automatically from request for surgery [id number] Syncope 04/01/2017 Chest pain, rule out acute [...] Chest pain 06/12/2016 Coronary artery disease involving tribal coronary artery of tribal heart 06/12 with angina pectoris [place] (myocardial infarction) 06/12/2016 Type 2 diabetes mellitus [...] Description 02/26/2019 Nurse Visit Anti-coagulation Clinic Nurse, Hic Anticoag 03/15/2019 Hospital Encounter Surgery Dagoberto Luna MD [id number] [place] [address] [phone] 03/15/2019 Surgery Surgery Dagoberto Luna LUMBAR EPIDURAL MD Tania STEROID INJECTION [address] [place] [address] [phone] 03/24/2019 Office Visit Gastroenterology Ioana Mccarty MD [facility] [place], [place] [address]6493 03/29/2019 Hospital Encounter Surgery Dagoberto Luna MD [address] [place] [address] [phone] 03/29/2019 Surgery Surgery Dagoberto Luna LUMBAR EPIDURAL MD Tania STEROID INJECTION [address] [place] [phone] 04/01/2019 Office Visit Internal Medicine Lilibeth Andrade MD [address] [place] [address] 04/12/2019 Hospital Encounter Surgery Dagoberto Luna MD [address] [place] [phone] 04/12/2019 Surgery Surgery Dagoberto Luna LUMBAR EPIDURAL MD Tania STEROID INJECTION [address] [place] [phone] 04/27/2019 Office Visit Cardiology Robert Adkins MD [address] [facility] TI[address] [place] [address] [phone] 05/04/2019 Office Visit Cardiology Al Valiente MD [address] [place] [address] [place] [address] [phone] 05/13/2019 Office Visit Internal Medicine Lilibeth Andrade MD [address] [place] [address] Dr [address] [place] [address] [phone] 05/27/2019 Appointment Cardiac Outpt-Simi, Electrophysiology Pacemaker/Icd 06/01/2019 Office Visit Internal Medicine Lilibeth Andrade MD [address] [place] [address] Dr [address] [place] [address] [phone] 07/06/2019 Office Visit Internal Medicine Lilibeth Andrade MD [address] [place] [address] Dr [address] [place] [address] [phone] 07/13/2019 Office Visit Endocrinology Diabetes Zhen Jones MD & Metabolism [address] [place] [address] [phone] 10/27/2019 Office Visit Pulmonary Disease Max Aguiar [address] [place] [address] Dr [address] [place] [address] [phone] 12/08/2019 Office Visit Ophthalmology Yariel Tineo MD [address] [place] [address] [phone] Name Type Priority Associated Diagnoses Order Schedule BASIC METABOLIC PANEL LAB Routine Acute on chronic 1 Occurrences starting (90773)(NA, K, CL, CO2, diastolic congestive 02/24/2019 until GLUCOSE, BUN, heart failure 02/24/2020 CREATININE, CA) Hypopotassemia Health Maintenance Due Date Last Done Comments [...] of this encounter Implants Implanted Type Area Employee Representative Device Shelf Model / Identifier Expiration Serial / Date Lot Prolene Mesh MESH Right: Ethicon 12/20/2020 PMSK / Implanted: Qty: 1 on 07/04/2016 by Alfonso Martinez MD at [facility] [employer] PMSK / [id number] Stent-06/24/2016 Implanted: 06/24/2016 (Quantity not on file) documented as of this encounter Results Not on filedocumented in this encounter Visit Diagnoses Diagnosis Acute on chronic diastolic congestive heart failure Acute on chronic diastolic heart failure Hypopotassemia documented in this encounter Insurance Payer Benefit Plan / Subscriber ID Effective Phone Address Type Group [facility] [id number] 2017-Pre [phone] [address] HMO HEALTH CHOICE HEALTH CHOICE sent [phone] [place] [address] BEACON BEACON [id number] 2016-Pre [phone] [facility] sent [phone] [facility] [address] [address] , [address] [place] [address] documented as of this encounter Advance Directives Name Relationship Healthcare Agent Communication Relationship Keaton Nelson Spouse Primary healthcare agent [email or web address] Elisabeth Soliz Sibling First [facility] healthcare [phone] agent (Mobile)
--- OUTSIDE RECORDS SUMMARY | 2019-05-11 00:59 | XMS REPORT | Summary of Care ---
:1970 Author Organization [facility] - Health Address [address] [place], [place] [address] Care Team Providers Name Role Phone Lilibeth Andrade MD Primary Care Provider Libby Espinoza RN Unavailable Unavailable Al Valiente MD Unavailable Junito Quezada MD Unavailable Karena Anand ENTERPRISE SYSTEMS ARCHITECT Unavailable Unavailable Tito Kirkpatrick Unavailable Encounter Details Date Type Department Care Team Description 02/23/2019 Orders Only [facility] Doctor Unassigned, No 301 [facility] [place] [address] [address] [place] [id number] Allergies Active Allergy Reactions Severity Noted Date [...] as of this encounter (statuses as of 02/25/2019) Medications Medication Sig Dispensed Refills Start Date End Date Status docusate 100 mg Take 1 capsule by 30 capsule 0 07/04/2016 Active capsule mouth 2 (two) times daily as needed for Constipation. Insulin [place], Use as directed, 400 Each 1 09/19/2017 [...] as of this encounter (statuses as of 02/25/2019) Active Problems Problem Noted Date Bradycardia 10/06/2018 [...] Overview: Added automatically from request for surgery [id number] Syncope 04/01/2017 Chest pain, rule out acute [...] Chest pain 06/12/2016 Coronary artery disease involving [place] coronary artery of [place] heart 06/12 with angina pectoris [place] (myocardial infarction) 06/12/2016 Type 2 diabetes mellitus without complication 06/12/2016 Essential hypertension 06/12/2016 History of alcohol abuse Overview: Sober for 16 years documented as of this encounter (statuses as of 02/25/2019) Resolved Problems Problem Noted Date Resolved Date Chest pain radiating to arm 08/08/2016 08/19/2016 Abdominal pain 07/19/2016 08/19/2016 History of epidural anesthesia 07/04/2016 08/19/2016 Morbid obesity with body mass index of 50 or higher 06/26/2016 08/19/2016 Obesity (BMI 30-39.9) 06/12/2016 08/19/2016 documented as of this encounter (statuses as of 02/25/2019) Immunizations Name Administration Dates Next Due Td [...] Description 02/26/2019 Nurse Visit Anti-coagulation Clinic Nurse, Vtc Anticoag 03/15/2019 Hospital Encounter Surgery Dagoberto Luna MD [address] [place] [phone] 03/15/2019 Surgery Surgery Dagoberto Luna LUMBAR EPIDURAL MD Tania STEROID INJECTION [address] [place] [address] 03/24/2019 Office Visit Gastroenterology Ioana Mccarty MD [address] [place] [address] [phone] 03/29/2019 Hospital Encounter Surgery Dagoberto Luna MD [address] [place] [phone] 03/29/2019 Surgery Surgery Dagoberto Luna LUMBAR EPIDURAL MD Tania STEROID INJECTION [address] [place] [phone] 04/01/2019 Office Visit Internal Medicine Lilibeth Andrade MD [address] [place] [address] [address] [phone] 04/12/2019 Hospital Encounter Surgery Dagoberto Luna MD [id number] [place] [address] [phone] 04/12/2019 Surgery Surgery Dagoberto Luna LUMBAR EPIDURAL MD Tania STEROID INJECTION [id number] [place] [phone] 04/27/2019 Office Visit Cardiology Robert Adkins MD [address] [place], [place] [address] 05/04/2019 Office Visit Cardiology Al Valiente MD [address] [place] [address] [address] [place] [address] [phone] 05/13/2019 Office Visit Internal Medicine Lilibeth Andrade MD [address] [place] [address] [address] [phone] 05/27/2019 Appointment Cardiac Outpt-Simi, Electrophysiology Pacemaker/Icd 06/01/2019 Office Visit Internal Medicine Lilibeth Andrade MD [address] [place] [address] [address] [phone] 07/06/2019 Office Visit Internal Medicine Lilibeth Andrade MD [address] [place] [address] 540375 07/13/2019 Office Visit Endocrinology Diabetes Zhen Jones MD & Metabolism [address] [place] [address] [phone] 10/27/2019 Office Visit Pulmonary Disease Max Aguiar [facility] [place] [address] [phone] 12/08/2019 Office Visit Ophthalmology Yariel Tineo MD [address] [place] [address] [phone] Health Maintenance Due Date Last Done Comments LDL-C 07/28/2019 07/28/2018, 01/11/2018, 12/31/2017, Additional history exists HgA1C 08/25/2019 02/24/2019, 07/28/2018, 03/30/2018, Additional history exists EYE EXAM 11/20/2019 11/19/2018, 11/13/2017 URINE MICROALBUMIN 02/07/2020 02/06/2019, 01/19/2018, 08/20/2016 CREATININE (SERUM) 02/24/2020 02/23/2019, 02/13/2019, 02/12/2019, Additional history exists PNEUMOCOCCAL 0-64 YEARS 02/24/2020 Postponed from COMBINED SERIES (1 of 1 - 1975 (Patient PPSV23) Refused) FOOT EXAM 02/25/2020 02/24/2019, 02/24/2019, 09/22/2018, Additional history exists INFLUENZA VACCINE (#1) 2020 Postponed from 02/21/2019 (Patient Refused) DTaP,Tdap,and Td Vaccines 06/26/2027 06/26/2017, 03/19/2015 Postponed from (1 - Tdap) 06/27/2017 (Not Indicated) documented as of this encounter Implants Implanted Type Area Podiatric Medicine Professor Device Shelf Model / Identifier Expiration Serial / Date Lot Prolene Mesh MESH Right: Ethicon 12/20/2020 PMSK / Implanted: Qty: 1 on 07/04/2016 by Alfonso Martinez MD at [facility] [employer] PMSK / [id number] Stent-06/24/2016 Implanted: 06/24/2016 (Quantity not on file) documented as of this encounter Procedures Procedure Name Priority Date/Time Associated Diagnosis Comments AGREEMENTS AUTHORIZATIONS Routine 02/23/2019 12:01 AM AND IRREVOCABLE CDT ASSIGNMENTS (FORM 2000) documented in this encounter Results Not on filedocumented in this encounter Insurance Payer Benefit Plan / Subscriber ID Effective Phone Address Type Group [facility] [id number] 2017-Pre [phone] [address] HEALTH CHOICE HEALTH CHOICE sent [phone] [place] [address] BEACON BEACON [id number] 2016-Pre [phone] Behavioral [facility]HAVIORAL BEHAVIORAL sent [phone] [facility] , [address] [place] [address] documented as of this encounter Advance Directives Name Relationship Healthcare Agent Communication Relationship Keaton Nelson Spouse Primary healthcare agent Elisabeth Soliz Sibling First alternate healthcare [phone] agent (Mobile)
--- OUTSIDE RECORDS SUMMARY | 2019-05-11 00:59 | XMS REPORT | Summary of Care ---
:1970 Author Organization [facility] Address [address] [place] [address] Care Team Providers Name Role Phone Lilibeth Andrade MD Primary Care Provider Libby Espinoza RN Unavailable Unavailable Al Valiente MD Unavailable Junito Quezada MD Unavailable Karena Anand BEHAVIORAL HEALTH CASE MANAGER Unavailable Unavailable Tito Kirkpatrick Unavailable Reason for Visit Reason Comments PT/INR Encounter Details Date Type Department Care Team Description 02/26/2019 Nurse Visit [facility] Harley Johns MD [address] [place] [address] Anticoagulation management encounter; Wohz-Vhnzieyzgkf-AN Nurse, Vtc Anticoag Other pulmonary embolism without acute cor pulmonale, unspecified chronicity; [facility] ST elevation myocardial infarction involving right coronary artery [address] [facility] [address] [place] [address] Allergies Active Allergy Reactions Severity Noted Date [...] as of this encounter (statuses as of 02/26/2019) Medications Medication Sig Dispensed Refills Start Date End Date Status docusate 100 mg Take 1 capsule by 30 capsule 0 07/04/2016 Active capsule mouth 2 (two) times daily as needed for Constipation. Insulin [place], Use as directed, 400 Each 1 09/19/2017 [...] Take 3 tablets by 180 tablet 2 02/24/2019 Active tabletIndications: mouth daily with Acute on chronic breakfast AND 2 diastolic congestive tablets every day heart failure, at 1200 (noon) AND Hypopotassemia 3 tablets every evening. 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 [place] (myocardial infarction) 06/12/2016 Type 2 diabetes mellitus without complication 06/12/2016 Essential hypertension 06/12/2016 History of alcohol abuse Overview: Sober for 16 years documented as of this encounter (statuses as of 02/26/2019) Resolved Problems Problem Noted Date Resolved Date Chest pain radiating to arm 08/08/2016 08/19/2016 Abdominal pain 07/19/2016 08/19/2016 History of epidural anesthesia 07/04/2016 08/19/2016 Morbid obesity with body mass index of 50 or higher 06/26/2016 08/19/2016 Obesity (BMI 30-39.9) 06/12/2016 08/19/2016 documented as of this encounter (statuses as of 02/26/2019) Immunizations Name Administration Dates Next Due Td [...] Patient Instructions Patient InstructionsDeepika Bagley RN - 02/26/2019 8:20 AM CDTEat a serving of high Vit K food today then continue eating Vitamin K foods twice a week. Warfarin (Coumadin) dose: 57.5 mg per week (using 7.5 mg tablets - yellow and 10 mg tablets - white) Friday: 7.5 mg Friday: 7.5 mg Friday: 7.5 mg Wednesday: 10 mg : 7.5 mg Friday: 7.5 [...] your safety, please remember to call the [facility] if any of your current medications change dose, if you get new medications, or if medications are stopped. There may be interactions with medications that will increase your risk of bleeding or forming blood clots. When you call the clinic([phone]) we will advise you if your INR should be checked sooner than your next scheduled appointment or you may need to adjust your Vitamin K food intake. [facility] Contact Information [facility]-- Deepika [phone] [email or web address] Oceanramesh Turner [phone] [email or web address] Manisha Sosa Mera Quesada [phone] [email or web address] To schedule appts - [phone] Emergency Dial 911 or go to the nearest Emergency Room documented in this encounter Progress Notes Deepika Bagley RN - 02/26/2019 8:20 AM CDT ANTI-COAGULATION CLINIC NOTE Anti-Coagulation diagnosis: ICD-10-CM ICD-9-CM 1. Anticoagulation management encounter Z51.81 V58.83 Z79.01 V58.61 2. Other pulmonary embolism without acute cor pulmonale, unspecified chronicity I26.99 415.19 Warfarin (Coumadin) dose: 57.5 mg per week (using 7.5 mg tablets - yellow and 10 mg tablets - white) Friday: 7.5 mg Friday: 7.5 mg Friday: 7.5 mg Friday: 10 mg : 7.5 mg Friday: 7.5 mg Friday: 10 mg Cognitive assessment: alert and oriented times 3 Finger stick performed using aseptic technique, sticking left hand, middle finger, and [employer] machine [id number] was used. Blood sample was obtained; Band aid was applied. Strip used today lot number: [id number] POCT PT/INR Date Value Ref Range Status 02/26/2019 3.3 (A) 0.8 - 1.4 INR Final POCT PT/SEC Date Value Ref Range Status 02/26/2019 39.8 SEC Final Anti-Coagulation diagnosis: ICD-10-CM ICD-9-CM 1. Anticoagulation management encounter Z51.81 V58.83 Z79.01 V58.61 2. Other pulmonary embolism without acute cor pulmonale, unspecified chronicity I26.99 415.19 Duration of Anticoagulation Therapy As of 02/26/2019 TTR: 67.3 % (5.4 mo) Target end date: Indefinite Target Range As of 02/26/2019 INR goal: 2.0-3.0 TTR: 67.3 % (5.4 mo) PT/INR greater than therapeutic range Pt arrived to clinic with . Pt's INR was 8/9 on 2.7 and dose was not adjusted at that time. Pt's INR today is 3.3. Pt states he usually eats Vit K twice a week but was not able to due to changes in his schedule. Pt states he willresume Vit K twice a week therefore will not adjust warfarin weekly dose. Will have patient continue warfarin 57.5 mg weekly dose. Pt will eat a serving of high Vit K food today then resume Vit K twice a week consistently. Will recheck INR in one month. Pt advised of the increased risk of bleeding with supratherapeutic INR. Pt denies any s/s of bleeding (bloody/tarry stools, hematuria, hemoptysis, or bleeding gums) and was advised to seek immediate medical attention if he should fall or if he develops any s/s of bleeding. Pt was advised to go to theEmergency Room if signs and symptoms of bleeding appear. Pt will review and reconcile medication list at next PCP appointment. Patient verbalized understanding and agreement with the plan of care. Change in dose: no change Patient notified: yes Patient verbalized understanding and agreement with the plan of care. Patient was provided with written and verbal educational information on February 26, 2019 regarding the interaction of warfarin with various foods and medications as part of ongoing education within the AntiCoagulation Clinic. Patient shows readiness to learn. Patient is able to read and verbalizesunderstanding of teaching provided and is provided a printed after visit summary (AVS) documenting the visit, pertinent patient instructions and follow-up recommendations.Electronically signed by Deepika Bagley RN at 2018 9:33 AM CDTdocumented in this encounter Plan of Treatment Date Type Specialty Care Team Description 03/11/2019 Backshoe Person Visit Clinical Medical Dagoberto Luna MD [address] [place] [phone] Laboratory 1, Adc Lab 03/15/2019 Hospital Encounter Surgery Dagoberto Luna MD [address] [place] [phone] 03/15/2019 Surgery Surgery Dagoberto Luna LUMBAR EPIDURAL MD Tania STEROID INJECTION [address] [place] [phone] 03/24/2019 Office Visit Gastroenterology Ioana Mccarty MD [address] [place] [address] [phone] 03/26/2019 Nurse Visit Anti-coagulation Clinic Nurse, Christen Desaiag 03/29/2019 Hospital Encounter Surgery Dagoberto Luna MD [address] [place] [address] [phone] 03/29/2019 Surgery Surgery Dagoberto Luna LUMBAR EPIDURAL MD Tania STEROID INJECTION [address] [place] [phone] 04/01/2019 Office Visit Internal Medicine Lilibeth Andrade MD [address] [place] [address] Dr [address] [place] [address] [phone] 04/12/2019 Hospital Encounter Surgery Dagoberto Luna MD [address] [place] [address] [phone] 04/12/2019 Surgery Surgery Dagoberto Luna LUMBAR EPIDURAL MD Tania STEROID INJECTION [address] [place] [address] [phone] 04/27/2019 Office Visit Cardiology Robert Adkins MD [address] [place] [address] [phone] 05/04/2019 Office Visit Cardiology Al Valiente MD [address] [place] [address] [address] [place], [place] [address] 05/13/2019 Office Visit Internal Medicine Lilibeth Andrade MD [address] [place] [address] Dr Lewis [address] [place] [address] [phone] 05/27/2019 Appointment Cardiac Outpt-Simi, Electrophysiology Pacemaker/Icd 06/01/2019 Office Visit Internal Medicine Lilibeth Andrade MD [address] [place] [address] Dr [address] [place] [address] [phone] 07/06/2019 Office Visit Internal Medicine Lilibeth Andrade MD [address] [place] [address] Dr Lewis [address] [place] [address] [phone] 07/13/2019 Office Visit Endocrinology Diabetes Zhen Jones MD & Metabolism [address] [place] [address] [phone] 10/27/2019 Office Visit Pulmonary Disease Max Aguiar [address] [place] [address] Dr Lewis [address] [place] [address] [phone] 12/08/2019 Office Visit Ophthalmology Yariel Tineo MD [address] [place] [address] Health Maintenance Due Date Last Done [...] of this encounter Implants Implanted Type Area Admissions Clerk Device Shelf Model / Identifier Expiration Serial / Date Lot Prolene Mesh MESH Right: Ethicon 12/20/2020 PMSK / Implanted: Qty: 1 on 07/04/2016 by Alfonso Martinez MD at [facility] [employer] PMSK / [id number] Stent-06/24/2016 Implanted: 06/24/2016 (Quantity not on file) documented as of this encounter Procedures Procedure Name Priority Date/Time Associated Diagnosis Comments POCT Routine 02/26/2019 Other pulmonary Results for this PT/INR(COAGUCHEK) embolism without acute procedure are in the cor pulmonale, results section. unspecified chronicity documented in this encounter Results POCT PT/INR(COAGUCHEK) (02/26/2019) POCT PT/INR 3.3 (A) 0.8 - 1.4 INR POCT PT/SEC 39.8 SEC Specimen Blood - CAPILLARY documented in this encounter Visit Diagnoses Diagnosis Anticoagulation management encounter Encounter for therapeutic drug monitoring Other pulmonary embolism without acute cor pulmonale, unspecified chronicity ST elevation myocardial infarction involving right coronary artery Acute myocardial infarction of inferoposterior wall, initial episode of care documented in this encounter Insurance Payer Benefit Plan / Subscriber ID Effective Phone Address Type Group Dates [facility] [id number] 2017-Lux [phone] HEALTH [employer] HEALTH [employer] [id number] [place] [address] (Home) [place] [address] documented as of this encounter Advance Directives Name Relationship Healthcare Agent Communication Relationship Keaton Nelson Spouse Primary healthcare agent [email or web address] Elisabeth Soliz Sibling First alternate healthcare [phone] agent (Mobile)
--- OUTSIDE RECORDS SUMMARY | 2019-05-11 01:00 | XMS REPORT | Summary of Care ---
:1970 Author Organization [facility] - Health Address [address] [place], [place] [address] Care Team Providers Name Role Phone Lilibeth Andrade MD Primary Care Provider Libby Espinoza RN Unavailable Unavailable Al Valiente MD Unavailable Junito Quezada MD Unavailable Karena Anand SOUS CHEF Unavailable Unavailable Tito Kirkpatrick Unavailable Encounter Details Date Type Department Care Team Description 02/24/2019 Orders Only [facility] Doctor Unassigned, No [address] [facility] [place] [address] [address] [place] [id number] Allergies Active Allergy Reactions Severity Noted Date [...] as of this encounter (statuses as of 02/28/2019) Medications Medication Sig Dispensed Refills Start Date End Date Status docusate 100 mg Take 1 capsule by 30 capsule 0 07/04/2016 Active capsule mouth 2 (two) times daily as needed for Constipation. Insulin [place], Use as directed, 400 Each 1 09/19/2017 [...] as of this encounter (statuses as of 02/28/2019) Active Problems Problem Noted Date Bradycardia 10/06/2018 [...] Overview: Added automatically from request for surgery [id number] Syncope 04/01/2017 Chest pain, rule out acute [...] Chest pain 06/12/2016 Coronary artery disease involving ottawa coronary artery of [place]tawa heart 06/12 with angina pectoris MA (myocardial infarction) 06/12/2016 Type 2 diabetes mellitus without complication 06/12/2016 Essential hypertension 06/12/2016 History of alcohol abuse Overview: Sober for 16 years documented as of this encounter (statuses as of 02/28/2019) Resolved Problems Problem Noted Date Resolved Date Chest pain radiating to arm 08/08/2016 08/19/2016 Abdominal pain 07/19/2016 08/19/2016 History of epidural anesthesia 07/04/2016 08/19/2016 Morbid obesity with body mass index of 50 or higher 06/26/2016 08/19/2016 Obesity (BMI 30-39.9) 06/12/2016 08/19/2016 documented as of this encounter (statuses as of 02/28/2019) Immunizations Name Administration Dates Next Due Td [...] Date Type Specialty Care Team Description 03/11/2019 Summer Internship Visit Clinical Medical Dagoberto Luna MD [address] [place] [phone] Laboratory 1, Adc Lab 03/15/2019 Hospital Encounter Surgery Dagoberto Luna MD [address], [place] [address] [phone] 03/15/2019 Surgery Surgery Dagoberto Luna LUMBAR EPIDURAL MD Tania STEROID INJECTION [address], [place] [address] [phone] 03/24/2019 Office Visit Gastroenterology Ioana Mccarty MD [address] [place] [address] [phone] 03/26/2019 Nurse Visit Anti-coagulation Clinic Nurse, [facility] Anticoag 03/29/2019 Hospital Encounter Surgery Dagoberto Luna MD [address] [place] [address] [phone] 03/29/2019 Surgery Surgery Dagoberto Luna LUMBAR EPIDURAL MD Tania STEROID INJECTION [address] [place] [phone] 04/01/2019 Office Visit Internal Medicine Lilibeth Andrade MD [address] [place] [address] Dr [address] [place] [address] [phone] 04/12/2019 Hospital Encounter Surgery Dagoberto Luna MD [address] [place] [phone] 04/12/2019 Surgery Surgery Dagoberto Luna LUMBAR EPIDURAL MD Tania STEROID INJECTION [address] [place] [address] [phone] 04/27/2019 Office Visit Cardiology Robert Adkins MD [address] [place], [place] [address] 05/04/2019 Office Visit Cardiology Al Valiente MD [address] [facility] [address] [place] [address] [phone] 05/13/2019 Office Visit Internal Medicine Lilibeth Andrade MD [address] [place] [address] [address] [phone] 05/27/2019 Appointment Cardiac Outpt-Simi, Electrophysiology Pacemaker/Icd 06/01/2019 Office Visit Internal Medicine Lilibeth Andrade MD [address] [place] [address] Dr Lewis [address] [place] [address] [phone] 07/06/2019 Office Visit Internal Medicine Lilibeth Andrade MD [address] [place] [address] Dr Lewis [address] [place] [address] [phone] 07/13/2019 Office Visit Endocrinology Diabetes Zhen Jones MD & Metabolism [address] [place] [address] [phone] 10/27/2019 Office Visit Pulmonary Disease Max Aguiar [address] [place] [address] Dr [address] [place] [address] [phone] 12/08/2019 Office Visit Ophthalmology Yariel Tineo MD [address] [place] [address] Health Maintenance Due Date Last Done [...] of this encounter Implants Implanted Type Area Automatic Gluing Machine Operator Device Shelf Model / Identifier Expiration Serial / Date Lot Prolene Mesh MESH Right: Ethicon 12/20/2020 PMSK / Implanted: Qty: 1 on 07/04/2016 by Alfonso Martinez MD at [facility] [employer] PMSK / [id number] Stent-06/24/2016 Implanted: 06/24/2016 (Quantity not on file) documented as of this encounter Procedures Procedure Name Priority Date/Time Associated Diagnosis Comments PATIENT QUESTIONNAIRE Routine 02/24/2019 12:01 AM CDT documented in this encounter Results Not on filedocumented in this encounter Insurance Payer Benefit Plan / Subscriber ID Effective Phone Address Type Group Dates [facility] [id number] 2017-Pre [phone] [address] HEALTH [employer] [employer] HEALTH CHOICE sent [phone] [place] [address] [employer]ON [employer] [id number] 2016-Pre [phone] [facility] sent [phone] [facility] , [address] [place] [address] documented as of this encounter Advance Directives Name Relationship Healthcare Agent Communication Relationship Keaton Nelson Spouse Primary healthcare agent [email or web address] Elisabeth Soliz Sibling First alternate healthcare [phone] agent (Mobile)
--- OUTSIDE RECORDS SUMMARY | 2019-05-11 01:01 | XMS REPORT | Summary of Care ---
:1970 Author Organization [facility] Address [address] [place] [address] Care Team Providers Name Role Phone Lilibeth Andrade MD Primary Care Provider Libby Espinoza RN Unavailable Unavailable Al Valiente MD Unavailable Junito Quezada MD Unavailable Karena Anand TRAFFIC OR SYSTEM DISPATCHER Unavailable Unavailable Tito Kirkpatrick Unavailable Reason for Visit Reason Comments LAB Encounter Details Date Type Department Care Team Description 03/02/2019 Door Maker Visit [facility] Robert Adkins MD [address] [facility] [id number] [place] [address] Acute on chronic diastolic congestive heart failure; Professional Office 2, [facility] Hypopotassemia Building Phlebotomy Lab Professional Office Building [address] [place] [address] , [address] [place] [address] Allergies Active Allergy Reactions Severity [...] as of this encounter (statuses as of 03/02/2019) Medications Medication Sig Dispensed Refills Start Date End Date Status docusate 100 mg Take 1 capsule by 30 capsule 0 07/04/2016 Active capsule mouth 2 (two) times daily as needed for Constipation. Insulin [place], Use as directed, 400 Each 1 09/19/2017 Active Disposable, (RELION QID, DX:E11.9 PEN NEEDLES) 32 gauge x /32" Ndle Diclofenac Sodium 1 Take 2-4 grams [...] as of this encounter (statuses as of 03/02/2019) Active Problems Problem Noted Date Bradycardia 10/06/2018 [...] Overview: Added automatically from request for surgery [id number] Syncope 04/01/2017 Chest pain, rule out acute [...] Chest pain 06/12/2016 Coronary artery disease involving [place] coronary artery of [place] heart 06/12 with angina pectoris [place] (myocardial infarction) 06/12/2016 Type 2 diabetes mellitus without complication 06/12/2016 Essential hypertension 06/12/2016 History of alcohol abuse Overview: Sober for 16 years documented as of this encounter (statuses as of 03/02/2019) Resolved Problems Problem Noted Date Resolved Date Chest pain radiating to arm 08/08/2016 08/19/2016 Abdominal pain 07/19/2016 08/19/2016 History of epidural anesthesia 07/04/2016 08/19/2016 Morbid obesity with body mass index of 50 or higher 06/26/2016 08/19/2016 Obesity (BMI 30-39.9) 06/12/2016 08/19/2016 documented as of this encounter (statuses as of 03/02/2019) Immunizations Name Administration Dates Next Due Td [...] Date Type Specialty Care Team Description 03/11/2019 Door Maker Visit Clinical Medical Dagoberto Luna MD [address] [place] [address] Laboratory 1, Adc Lab 03/15/2019 Hospital Encounter Surgery Dagoberto Luna MD [address] [place] [address] 03/15/2019 Surgery Surgery Dagoberto Luna LUMBAR EPIDURAL MD Tania STEROID INJECTION [address] [place] [address] [phone] 03/24/2019 Office Visit Gastroenterology Ioana Mccarty MD [address] [place] [address] [phone] 03/26/2019 Nurse Visit Anti-coagulation Clinic Nurse, Vtc Anticoag 03/29/2019 Hospital Encounter Surgery Dagoberto Luna MD [address] [place] [address] [phone] 03/29/2019 Surgery Surgery Dagoberto Luna LUMBAR EPIDURAL MD Tania STEROID INJECTION [address] [place] [address] [phone] 04/01/2019 Office Visit Internal Medicine Lilibeth Andrade MD [address] [facility] Dr Lewis [address] [place] [address] 04/12/2019 Hospital Encounter Surgery Dagoberto Luna MD [address] [place] [phone] 04/12/2019 Surgery Surgery Dagoberto Luna LUMBAR EPIDURAL MD Tania STEROID INJECTION [address] [place] [phone] 04/27/2019 Office Visit Cardiology Robert Adkins MD [address] [facility] [address] [place] [address] [phone] 05/04/2019 Office Visit Cardiology Al Valiente MD 146 [facility] [address] [place] [address] [phone] 05/13/2019 Office Visit Internal Medicine Lilbieth Andrade MD [address] [place] [address] Dr Lewis [address] [place] [address] [phone] 05/27/2019 Appointment Cardiac Outpt-Simi, Electrophysiology Pacemaker/Icd 06/01/2019 Office Visit Internal Medicine Lilibeth Andrade MD [address] [place] [address] Dr Lewis [address] [place] [address] [phone] 07/06/2019 Office Visit Internal Medicine Lilibeth Andrade MD [address] [place] [address] Dr Lewis [address] [place] [address] [phone] 07/13/2019 Office Visit Endocrinology Diabetes Zhen Jones MD & Metabolism [address] [place] [address] [phone] 10/27/2019 Office Visit Pulmonary Disease Max Aguiar [address] [place] [address] Dr Lewis [address] [place] [address] [phone] 12/08/2019 Office Visit Ophthalmology Yariel Tineo MD [address] [place] [address] Health Maintenance Due Date Last Done [...] of this encounter Implants Implanted Type Area Second Steward Device Shelf Model / Identifier Expiration Serial / Date Lot Prolene Mesh MESH Right: Ethicon 12/20/2020 PMSK / Implanted: Qty: 1 on 07/04/2016 by Alfonso Martinez MD at [facility] [employer] PMSK / [id number] Stent-06/24/2016 Implanted: 06/24/2016 (Quantity not on file) documented as of this encounter Results Not on filedocumented in this encounter Visit Diagnoses Diagnosis Acute on chronic diastolic congestive heart failure Acute on chronic diastolic heart failure Hypopotassemia documented in this encounter Insurance Payer Benefit Plan / Subscriber ID Effective Phone Address Type Group Dates [employer] [id number] 2017-Lux [phone]MO HEALTH [employer] HEALTH [employer] 86 [phone] [place] [address] (Home) [place] [address] documented as of this encounter Advance Directives Name Relationship Healthcare Agent Communication Relationship Keaton Nelson Spouse Primary healthcare agent [email or web address] Elisabeth Soliz Sibling First alternate healthcare [phone] agent (Mobile)
--- OUTSIDE RECORDS SUMMARY | 2019-05-11 01:02 | XMS REPORT | Summary of Care ---
:1970 Author Organization [facility] Address [address] [place] [address] Care Team Providers Name Role Phone Lilibeth Andrade MD Primary Care Provider Libby Espinoza RN Unavailable Unavailable Al Valiente MD Unavailable Junito Quezada MD Unavailable Karena Anand FIELD SERVICE COORDINATOR Unavailable Unavailable Tito Kirkpatrick Unavailable Reason for Visit Reason Comments LAB WORK Lab Results Medication Dose Change Encounter Details Date Type Department Care Team Description 03/03/[address] [facility] Cardiology- Robert Adkins LAB WORK; Lab Results; Milton MD Namita Medication Dose Change [address] [facility] [id number] [place] [address] [id number] Allergies Active Allergy Reactions Severity Noted Date [...] as of this encounter (statuses as of 03/03/2019) Medications Medication Sig Dispensed Refills Start End Date Status Date docusate 100 mg Take 1 capsule by 30 capsule 0 Active capsule mouth 2 (two) 7 times daily as needed for Constipation. Insulin [place], Use as directed, 400 Each 1 Active [...] by 180 tablet 2 Active tabletIndications: mouth 3 (three) 9 Acute on chronic times daily. diastolic congestive heart failure, Hypopotassemia KCL 20 mEq Take 3 tablets by 180 tablet 2 03/03/20 Discontinued tabletIndications: mouth daily with 9 19 Acute on chronic breakfast AND 2 diastolic tablets every day congestive heart at 1200 (noon) failure, AND 3 tablets Hypopotassemia every evening. documented as of this encounter (statuses as of 03/03/2019) Active Problems Problem Noted Date Bradycardia 10/06/2018 [...] Overview: Added automatically from request for surgery [id number] Syncope 04/01/2017 Chest pain, rule out acute [...] Chest pain 06/12/2016 Coronary artery disease involving [place] coronary artery of [place] heart 06/12 with angina pectoris [place] (myocardial infarction) 06/12/2016 Type 2 diabetes mellitus without complication 06/12/2016 Essential hypertension 06/12/2016 History of alcohol abuse Overview: Sober for 16 years documented as of this encounter (statuses as of 03/03/2019) Resolved Problems Problem Noted Date Resolved Date Chest pain radiating to arm 08/08/2016 08/19/2016 Abdominal pain 07/19/2016 08/19/2016 History of epidural anesthesia 07/04/2016 08/19/2016 Morbid obesity with body mass index of 50 or higher 06/26/2016 08/19/2016 Obesity (BMI 30-39.9) 06/12/2016 08/19/2016 documented as of this encounter (statuses as of 03/03/2019) Immunizations Name Administration Dates Next Due Td [...] Date Type Specialty Care Team Description 03/11/2019 Claims Director Visit Clinical Medical Dagoberto Luna MD [address] [address], [place] [address] [phone] Laboratory 1, Adc Lab 03/15/2019 Hospital Encounter Surgery Dagoberto Luna MD [address] [place] [address] [phone] 03/15/2019 Surgery Surgery Dagoberto Luna LUMBAR EPIDURAL MD Tania STEROID INJECTION [address] [place] [address] [phone] 03/24/2019 Office Visit Gastroenterology Ioana Mccarty MD [facility] [place] [address] [phone] 03/26/2019 Nurse Visit Anti-coagulation Clinic Nurse, Txc Anticoag 03/29/2019 Hospital Encounter Surgery Dagoberto Luna MD [address] [place] [address] [phone] 03/29/2019 Surgery Surgery Dagoberto Luna LUMBAR EPIDURAL MD Tania STEROID INJECTION [address] [place] [address] [phone] 04/01/2019 Office Visit Internal Medicine Lilibeth Andrade MD [address] [place] [address] 04/12/2019 Hospital Encounter Surgery Dagoberto Luna MD [address] [place] [address] [phone] 04/12/2019 Surgery Surgery Dagoberto Luna LUMBAR EPIDURAL MD Tania STEROID INJECTION [address] [place] [address] [phone] 04/27/2019 Office Visit Cardiology Robert Adkins MD [address] [facility] [id number] [place], [place] [address] 05/04/2019 Office Visit Cardiology Al Valiente MD [address] [place] [address] [place] [address] [phone] 05/13/2019 Office Visit Internal Medicine Lilibeth Andrade MD [address] [place] [address] Dr [address] [place] [address] 110[address] 05/27/2019 Appointment Cardiac Outpt-Simi, Electrophysiology Pacemaker/Icd 06/01/2019 Office Visit Internal Medicine Lilibeth Andrade MD [address] [place] [address] Dr [address] [place] [address] [phone] 07/06/2019 Office Visit Internal Medicine Lilibeth Andrade MD [address] [place] [address] Dr [address] [place] [address] [phone] 07/13/2019 Office Visit Endocrinology Diabetes Zhen Jones MD & Metabolism [address] [place] [address] [phone] 10/27/2019 Office Visit Pulmonary Disease Max Aguiar [address] [place] [address] [id number] 12/08/2019 Office Visit Ophthalmology Yariel Tineo MD [address] [place] [address]. [place] [address] Name Type Priority Associated Diagnoses Order Schedule BASIC METABOLIC PANEL LAB Routine Hypopotassemia 1 Occurrences starting (NA, K, CL, CO2, 03/03/2019 until GLUCOSE, BUN, 03/03/2020 CREATININE, [place]) Health Maintenance Due Date Last Done Comments LDL-C 07/28/2019 07/28/2018, 01/11/2018, 12/31/2017, Additional history exists HgA1C 08/25/2019 02/24/2019, 07/28/2018, 03/30/2018, Additional history exists EYE EXAM 11/20/2019 11/19/2018, 11/13/2017 URINE MICROALBUMIN 02/07/2020 02/06/2019, 01/19/2018, 08/20/2016 PNEUMOCOCCAL 0-64 YEARS 02/24/2020 Postponed from COMBINED SERIES (1 of 1 - 1975 (Patient PPSV23) Refused) FOOT EXAM 02/25/2020 02/24/2019, 02/24/2019, 09/22/2018, Additional history exists CREATININE (SERUM) 03/02/2020 03/02/2019, 02/23/2019, 02/13/2019, Additional history exists INFLUENZA VACCINE (#1) 2020 Postponed from 02/21/2019 (Patient Refused) DTaP,Tdap,and Td Vaccines 06/26/2027 06/26/2017, 03/19/2015 Postponed from (1 - Tdap) 06/27/2017 (Not Indicated) documented as of this encounter Implants Implanted Type Area Dragger Device Shelf Model / Identifier Expiration Serial / Date Lot Prolene Mesh MESH Right: Ethicon 12/20/2020 PMSK / Implanted: Qty: 1 on 07/04/2016 by Alfonso Martinez MD at [facility] [employer] PMSK / [id number] Stent-06/24/2016 Implanted: 06/24/2016 (Quantity not on file) documented as of this encounter Results Not on filedocumented in this encounter Visit Diagnoses Diagnosis Acute on chronic diastolic congestive heart failure Acute on chronic diastolic heart failure Hypopotassemia documented in this encounter Insurance Payer Benefit Plan / Subscriber ID Effective Phone Address Type Group Dates [facility] [id number] 2017-Pre [phone] [address] HMO HEALTH CHOICE HEALTH CHOICE sent [phone] [place] [address] BEACON BEACON [id number] 2016-Pre [phone] [facility] sent [phone] [facility] [place] , [address] [place] [address] documented as of this encounter Advance Directives Name Relationship Healthcare Agent Communication Relationship Keaton Nelson Spouse Primary healthcare agent Elisabeth Soliz Sibling First alternate healthcare [phone] agent (Mobile)
--- OUTSIDE RECORDS SUMMARY | 2019-05-11 01:03 | XMS REPORT | Summary of Care ---
:1970 Author Organization [facility] - Health Address [address] [place], [place] [address] Care Team Providers Name Role Phone Lilibeth Andrade MD Primary Care Provider Libby Espinoza RN Unavailable Unavailable Al Valiente MD Unavailable Junito Quezada MD Unavailable Karena Anand INSURANCE CUSTOMER SERVICE SPECIALIST Unavailable Unavailable Tito Kirkpatrick Unavailable Encounter Details Date Type Department Care Team Description 03/02/2019 Orders Only [facility] Doctor Unassigned, No [address] [facility] [place] [address] [address] [place] [id number] Allergies Active Allergy Reactions Severity Noted Date [...] as of this encounter (statuses as of 03/05/2019) Medications Medication Sig Dispensed Refills Start Date End Date Status docusate 100 mg Take 1 capsule by 30 capsule 0 07/04/2016 Active capsule mouth 2 (two) times daily as needed for Constipation. Insulin [place], Use as directed, 400 Each 1 09/19/2017 [...] as of this encounter (statuses as of 03/05/2019) Active Problems Problem Noted Date Bradycardia 10/06/2018 [...] Overview: Added automatically from request for surgery [id number] Syncope 04/01/2017 Chest pain, rule out acute [...] Chest pain 06/12/2016 Coronary artery disease involving [place] coronary artery of [place] heart 06/12 with angina pectoris [place] (myocardial infarction) 06/12/2016 Type 2 diabetes mellitus without complication 06/12/2016 Essential hypertension 06/12/2016 History of alcohol abuse Overview: Sober for 16 years documented as of this encounter (statuses as of 03/05/2019) Resolved Problems Problem Noted Date Resolved Date Chest pain radiating to arm 08/08/2016 08/19/2016 Abdominal pain 07/19/2016 08/19/2016 History of epidural anesthesia 07/04/2016 08/19/2016 Morbid obesity with body mass index of 50 or higher 06/26/2016 08/19/2016 Obesity (BMI 30-39.9) 06/12/2016 08/19/2016 documented as of this encounter (statuses as of 03/05/2019) Immunizations Name Administration Dates Next Due Td [...] Date Type Specialty Care Team Description 03/11/2019 Suction Worker Visit Clinical Medical Dagoberto Luna MD [address] [place] [address] [phone] Laboratory 1, Adc Lab 03/15/2019 Hospital Encounter Surgery Dagoberto Luna MD [address] [place] [address] 03/15/2019 Surgery Surgery Dagoberto Luna LUMBAR EPIDURAL MD Tania STEROID INJECTION [address] [place] [address] 03/24/2019 Office Visit Gastroenterology Ioana Mccarty MD [address] [place] [address] [phone] 03/26/2019 Nurse Visit Anti-coagulation Clinic Nurse, Vtc Anticoag 03/29/2019 Hospital Encounter Surgery Dagoberto Luna MD [address] [place] [address] [phone] 03/29/2019 Surgery Surgery Dagoberto Luna LUMBAR EPIDURAL MD Tania STEROID INJECTION [address] [place] [address] [phone] 04/01/2019 Office Visit Internal Medicine Lilibeth Andrade MD [address] [place] [address] Dr [address] [place] [address] [phone] 04/12/2019 Hospital Encounter Surgery Dagoberto Luna MD [address] [place] [address] [phone] 04/12/2019 Surgery Surgery Dagoberto Luna LUMBAR EPIDURAL MD Tania STEROID INJECTION [address] [place] [address] [phone] 04/27/2019 Office Visit Cardiology Robert Adkins MD [address] [facility] [id number] [place], [place] [address] 05/04/2019 Office Visit Cardiology Al Valiente MD [address] [place] [address] [address] [place] [address] [phone] 05/13/2019 Office Visit Internal Medicine Lilibeth Andrade MD [address] [place] [address] Dr [address] [place] [address] [phone] 05/27/2019 Appointment Cardiac Outpt-Simi, Electrophysiology Pacemaker/Icd 06/01/2019 Office Visit Internal Medicine Lilibeth Andrade MD [address] [place] [address] [address] [place] [address] [phone] 07/06/2019 Office Visit Internal Medicine Lilibeth Andrade MD [address] [place] [address] [address] [place] [address] [phone] 07/13/2019 Office Visit Endocrinology Diabetes Zhen Jones MD & Metabolism [address] [place] [address] [phone] 10/27/2019 Office Visit Pulmonary Disease Max Aguiar [address] [place] [address] Dr [address] [place] [address] [phone] 12/08/2019 Office Visit Ophthalmology Yariel Tineo MD [address] [place] [address] Health Maintenance Due Date Last Done [...] of this encounter Implants Implanted Type Area Inside Sales Engineer Device Shelf Model / Identifier Expiration Serial / Date Lot Prolene Mesh MESH Right: Ethicon 12/20/2020 PMSK / Implanted: Qty: 1 on 07/04/2016 by Alfonso Martinez MD at [facility] [employer] PMSK / [id number] Stent-06/24/2016 Implanted: 06/24/2016 (Quantity not on file) documented as of this encounter Procedures Procedure Name Priority Date/Time Associated Diagnosis Comments AGREEMENTS AUTHORIZATIONS Routine 03/02/2019 12:01 AM AND IRREVOCABLE CDT ASSIGNMENTS (FORM 2001) documented in this encounter Results Not on filedocumented in this encounter Insurance Payer Benefit Plan / Subscriber ID Effective Phone Address Type Group Dates HIM [facility] [id number] 2017-Lux [phone] [address] [employer] [id number] [place] [address] documented as of this encounter Advance Directives Name Relationship Healthcare Agent Communication Relationship Keaton Nelson Spouse Primary healthcare agent [email or web address] Elisabeth Soliz Sibling First alternate healthcare [phone] agent (Mobile)
--- OUTSIDE RECORDS SUMMARY | 2019-05-11 01:04 | XMS REPORT | Summary of Care ---
:1970 Author Organization [facility] Address [address] [place] [address] Care Team Providers Name Role Phone Lilibeth Andrade MD Primary Care Provider Libby Espinoza RN Unavailable Unavailable Al Valiente MD Unavailable Junito Quezada MD Unavailable Karena Anand LOG TUMBLER Unavailable Unavailable Tito Kirkpatrick Unavailable Reason for Visit Reason Comments Follow-up 1 month Lab Results Refill Request Encounter Details Date Type Department Care Team Description 02/23/2019 Office Visit [facility] Pediatric Lupe, Lety fatigue ( Primary Dx); and Adult Primary Lilibeth Payne MD Vitamin B12 deficiency; [address] Uric acid stone in urine; [address] [place] [address] Chest pain, unspecified type; [address] [place] [address] Skin problem [place], [place] [phone] [address] [phone] Allergies Active Allergy Reactions Severity Noted Date [...] as of this encounter (statuses as of 03/07/2019) Medications Medication Sig Dispensed Refills Start End Date Status Date docusate 100 mg Take 1 capsule by 30 capsule 0 Active capsule mouth 2 (two) 7 times daily as needed for Constipation. Insulin Epping, Use as directed, 400 Each 1 Active Disposable, (MILKA GUZMAN, DX:E11.9 8 PEN NEEDLES) 32 gauge x [...] daily. 9 Uric acid stone in urine allopurinol 300 mg Take 1 tablet by 30 tablet 6 02/24/20 Discontinued tablet mouth daily. 9 19 cyanocobalamin Inject 1ml weekly 12 mL 3 02/24/20 Discontinued (VITAMIN B-12) for 3 months, 9 19 1,000 mcg/mL then every other injectionIndication week for 3 s: Vitamin B12 months, then deficiency monthly. metformin ER 500 mg Take 1 tablet by 270 tablet 3 02/25/20 Discontinued 24 hr mouth 2 (two) 9 19 tabletIndications: times daily. Type 2 diabetes mellitus with cardiac complication KCL 20 mEq Take 3 tablets by 180 tablet 2 02/25/20 Discontinued tabletIndications: mouth 2 (two) 9 19 Acute on chronic times daily. diastolic congestive heart failure, Hypopotassemia dulaglutide inject 0.75 mg 4 Syringe 3 02/25/20 Discontinued (TRULICITY) 0.75 under the skin 9 19 mg/0.5 mL weekly. PnIjIndications: Type 2 diabetes mellitus with cardiac complication documented as of this encounter (statuses as of 03/07/2019) Active Problems Problem Noted Date Bradycardia 10/06/2018 [...] Overview: Added automatically from request for surgery [id number] Syncope 04/01/2017 Chest pain, rule out acute [...] of shoshone-bannock heart 06/12 with angina pectoris OR (myocardial infarction) 06/12/2016 Type 2 diabetes mellitus without complication 06/12/2016 Essential hypertension 06/12/2016 History of alcohol abuse Overview: Sober for 16 years documented as of this encounter (statuses as of 03/07/2019) Resolved Problems Problem Noted Date Resolved Date Chest pain radiating to arm 08/08/2016 08/19/2016 Abdominal pain 07/19/2016 08/19/2016 History of epidural anesthesia 07/04/2016 08/19/2016 Morbid obesity with body mass index of 50 or higher 06/26/2016 08/19/2016 Obesity (BMI 30-39.9) 06/12/2016 08/19/2016 documented as of this encounter (statuses as of 03/07/2019) Immunizations Name Administration Dates Next Due Td [...] Sign Reading Time Taken Comments Blood Pressure 123/80 02/23/2019 10:04 AM CDT Pulse 86 02/23/2019 10:04 AM CDT Temperature 36.7 C (98.1 F) 02/23/2019 10:04 AM CDT Respiratory Rate 18 02/23/2019 10:04 AM CDT Oxygen Saturation 97% 02/23/2019 10:04 AM CDT Inhaled Oxygen Concentration - - Weight 131.1 kg (289 lb 1.6 oz) 02/23/2019 10:04 AM CDT Height - - Body Mass Index 41.48 02/13/2019 1:45 AM CDT documented in this encounter Patient Instructions Patient InstructionsShelia Pulliam - 02/23/2019 10:00 AM [email or web address] take this test and let me know the results. Start zinc 25 mg daily. [facility] Rx Assistance: [phone]. [phone]. The patient can call the number. They make an appointment for them to come in and fill out application. documented in this encounter Progress Notes Lilibeth Andrade MD - 02/23/2019 10:00 AM CDT DOS: 02/23/2019 CC: Follow up of chronic conditions HPI: John Paul Nelson is a 48 year old male with history including has a past medical history of AAA (abdominal aortic aneurysm), Anxiety, CHF ( congestive heart failure), Degenerative disc disease, lumbar, Diabetes, Hernia, History of alcohol abuse, History of pernicious anemia, HLD (hyperlipidemia), Hypertension, Kidney stones, Lung nodule, OR (myocardial infarction), Microcytic anemia, Right bundle branch block, and Uveitis. who is being seen today for follow up of chronic conditions. Patient states he has a rased pink circular pattern on his back. She states this comes and goesby it's self. Has been going on for at least months. He does not feel them. She noticed them. He hasn't tried otc hydrocortisone cream or any antifungals. Patient denies itching. Patient states after he showers and washes his face he puts hydrocortisone cream on. states this has helped with the dry skin on his face. Patient states he had chest pain all day yesterday. He states it wasn't bad enough to go to the hospital. Patient states he follows with cardiology in a couple months. Patient states he's tired all the time. She states he's unable to sleep at night because he's anxious. She states he sometimes paces around. Patient states he gets anxious because he feels like he's not getting enough air. He's still using essential oils and feels like they help. states during the day if it's cold inside he'll sleep all day. states the heat drains him. Still follows with psychiatry for anxiety/depression. Health Maintenance Patient does not want vaccines at this time. A1c is going to be done by endocrine. Medications reviewed in EPIC, past medical history and social history and allergies reviewed. Review of Systems Constitutional: Positive for fatigue. Cardiovascular: Positive for chest pain. Skin: Positive for rash. PE: Blood pressure 123/80, pulse 86, temperature 36.7 C (98.1 F), temperature source Oral, resp. rate 18, weight 289 lb 1.6 oz (131.1 kg), SpO2 97 %. Physical Exam Constitutional: He is oriented to person, place, and time. He appears well- developed and well-nourished. No distress. HENT: Head: Normocephalic and atraumatic. Right Ear: External ear normal. Left Ear: External ear normal. Nose: Nose normal. No tracheal deviation Eyes: Right eye exhibits no discharge. Left eye exhibits no discharge. No scleral icterus. Left and right eyelids normal. Neurological: He is alert and oriented to person, place, and time. No tremors. Normal gait. Skin: Skin is warm and dry. He is not diaphoretic. Psychiatric: He has a normal mood and affect. His behavior is normal. Pleasant. Vitals reviewed. Results: reviewed labs form 02/06/19 Education & Visit Time: this visit involved [...] (hyperlipidemia), Hypertension , Kidney stones, Lung nodule, OR (myocardial infarction), Microcytic anemia, Right bundle branch block, and Uveitis. who is being seen today for chronic medical conditions. Other fatigue (primary encounter diagnosis) Comment: still having issues. Could be due to toxin exposure. Plan: discussed with patient to take the VCS test and let me know the results. He will start cholestyramine. Vitamin B12 deficiency Comment: patient has B12 deficiency. Doing well on injections. Will refill. Plan: cyanocobalamin (VITAMIN B-12) 1,000 mcg/mL injection Uric acid stone in urine Comment: stable. needs refill. Plan: allopurinol 300 mg tablet Chest pain, unspecified type Comment: he had chest pain all day yesterday. Still unsure of root cause of most of his issues. Plan: patient will follow with cardiology. Skin problem Comment: he has a circular rash on his back that comes and goes. Refer to picture. Plan: patient will try otc hydrocortisone cream and lamisil. He will continue to follow up with psychiatry for anxiety/depression. lavender oil has helped his anxiety in addition to other therapies. Return for Keep next appointment., should have appointments every 4 weeks or so. Plan of care, desired health behaviors, goals,& medication discussed with patient and educational resources and self management tools provided as appropriate. Patient/family/guardian voices understanding. Patient verbalized understanding & agrees to plan of care. Barriers to care: none Ability to manage care: good Scribe's Attestation IShelia , am scribing for, and in the presence of, Lilibeth Andarde MD who performed the services described here-in. Shelia Pulliam, February 23, 2019, 11:07 AM Physician's Attestation I, Lilibeth Andrade MD, personally performed the services described in this documentation , asscribed by, Shelia Pulliam in my presence and it is both accurate and complete. Lilibeth Andrade MD March 07, 2019, 5:06 PM documented in this encounter Plan of Treatment Date Type Specialty Care Team Description 03/11/2019 Cost Coordinator Visit Clinical Medical Dagoberto Luna MD [id number] [place] [address] [phone] Laboratory 1, Adc Lab 03/15/2019 Hospital Encounter Surgery Dagoberto Luna MD [address] [place] [address] [phone] 03/15/2019 Surgery Surgery Dagoberto Luna LUMBAR EPIDURAL MD Tania STEROID INJECTION [address] [place] [address] [phone] 03/24/2019 Office Visit Gastroenterology Ioana Mccarty MD [facility] [place] [address] [phone] 03/26/2019 Nurse Visit Anti-coagulation Clinic Nurse, Vtc Anticoag 03/29/2019 Hospital Encounter Surgery Dagoberto Luna MD [address] [place] [address] [phone] 03/29/2019 Surgery Surgery Dagoberto Luna LUMBAR EPIDURAL MD Tania STEROID INJECTION [address], [place] [address] [phone] 04/01/2019 Office Visit Internal Medicine Lilibeth Andrade MD [address] [place] [address] 04/12/2019 Hospital Encounter Surgery Dagoberto Luna MD [id number] [place] [address] [phone] 04/12/2019 Surgery Surgery Dagoberto Luna LUMBAR EPIDURAL MD Tania STEROID INJECTION [id number] [place] [address] [phone] 04/27/2019 Office Visit Cardiology Robert Adkins MD [address] [place], [place] [address] 05/04/2019 Office Visit Cardiology Al Valiente MD [address] [place] [address]15 05/13/2019 Office Visit Internal Medicine Lilibeth Andrade MD [address] [place] [address] [address] [phone] 05/27/2019 Appointment Cardiac Outpt-Simi, Electrophysiology Pacemaker/Icd 06/01/2019 Office Visit Internal Medicine Lilibeth Andrade MD [address] [place] [address] [address] 07/06/2019 Office Visit Internal Medicine Lilibeth Andrade MD [address] [place] [address] [address] 07/13/2019 Office Visit Endocrinology Diabetes Zhen Jones MD & Metabolism [address] [place], [place] 546643 10/27/2019 Office Visit Pulmonary Disease Max Aguiar [address] [place] [address] 172335 12/08/2019 Office Visit Ophthalmology Yariel Tineo MD [address] [place] [address]. [place] [address] [phone] Health Maintenance Due Date Last Done Comments [...] of this encounter Implants Implanted Type Area Business Solutions Consultant Device Shelf Model / Identifier Expiration Serial / Date Lot Prolene Mesh MESH Right: Ethicon 12/20/2020 PMSK / Implanted: Qty: 1 on 07/04/2016 by Alfonso Martinez MD at [facility] [employer] PMSK / [id number] Stent-06/24/2016 Implanted: 06/24/2016 (Quantity not on file) documented as of this encounter Results Not on filedocumented in this encounter Visit Diagnoses Diagnosis Other fatigue - Primary Vitamin B12 deficiency Other B-complex deficiencies Uric acid stone in urine Urinary calculus, unspecified Chest pain, unspecified type Skin problem documented in this encounter Insurance Payer Benefit Plan / Subscriber ID Effective Phone Address Type Group Dates [facility] [id number] 2017-Lux [phone] [address] [employer] HEALTH CHOICE [phone] [place] [address] (Home) [place] [address] documented as of this encounter Advance Directives Name Relationship Healthcare Agent Communication Relationship Keaton Nelson Spouse Primary healthcare agent [email or web address] Elisabeth Soliz Sibling First alternate healthcare [phone] agent (Mobile)
--- OUTSIDE RECORDS SUMMARY | 2019-05-11 01:04 | XMS REPORT | Summary of Care ---
:1970 Author Organization [facility] Address [address] [place] [address] Care Team Providers Name Role Phone Lilibeth Andrade MD Primary Care Provider Libby Espinoza RN Unavailable Unavailable Al Valiente MD Unavailable Junito Quezada MD Unavailable Karena Anand BLANKER OPERATOR Unavailable Unavailable Tito Kirkpatrick Unavailable Reason for Visit Reason Comments Follow-up 1 month Lab Results Refill Request Encounter Details Date Type Department Care Team Description 02/23/2019 Office Visit [facility] Pediatric Lupe, Lety fatigue ( Primary Dx); and Adult Primary Lilibeth Payne MD Vitamin B12 deficiency; [address] Uric acid stone in urine; [address] [place] [address] Chest pain, unspecified type; [address] [place] [address] Skin problem [place] [phone] [address] [phone] Allergies Active Allergy Reactions Severity Noted Date [...] times daily as needed for Constipation. 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 Start zinc 25 mg daily. [facility] Rx Assistance: [phone]. [phone]. The patient can call the number. They [...] HLD (hyperlipidemia), Hypertension, Kidney stones, Lung nodule, SD (myocardial infarction), Microcytic anemia, Right bundle branch [...] (hyperlipidemia), Hypertension , Kidney stones, Lung nodule, SD (myocardial infarction), Microcytic anemia, Right bundle branch [...] Date Type Specialty Care Team Description 03/11/2019 Caterpillar Operator Visit Clinical Medical Dagoberto Luna MD [id number] [place] [address] [phone] Laboratory 1, Adc Lab 03/15/2019 Hospital Encounter Surgery Dagoberto Luna MD [address] [place] [address] [phone] 03/15/2019 Surgery Surgery Dagoberto Luna LUMBAR EPIDURAL MD Tania STEROID INJECTION [address] [place] [address] [phone] 03/24/2019 Office Visit Gastroenterology Ioana Mccarty MD [facility] [place] [address] [phone] 03/26/2019 Nurse Visit Anti-coagulation Clinic Nurse, Vtc Anticoag 03/29/2019 Hospital Encounter Surgery Dagoberto Luna MD [address] [place] [address] [phone] 03/29/2019 Surgery Surgery Dagoberto Luna LUMBAR EPIDURAL MD Tania STEROID INJECTION [address], [place] [address] [phone] 04/01/2019 Office Visit Internal Medicine Lilibeth Andrade MD [address] [place] [address] 04/12/2019 Hospital Encounter Surgery Dagoberto Luna MD [id number] [place] [address] [phone] 04/12/2019 Surgery Surgery Dagoberto Luna LUMBAR EPIDURAL MD Tania STEROID INJECTION [id number] [place] [address] [phone] 04/27/2019 Office Visit Cardiology Robert Adkins MD [address] [place], [place] 78[address] 05/04/2019 Office Visit Cardiology Al Valiente MD [address] [place] [address] 05/13/2019 Office Visit Internal Medicine Lilibeth Andrade MD [address] [place] [address] [address] [phone] 05/27/2019 Appointment Cardiac Outpt-Simi, Electrophysiology Pacemaker/Icd 06/01/2019 Office Visit Internal Medicine Lilibeth Andrade MD [address] [place] [address] [address] 07/06/2019 Office Visit Internal Medicine Lilibeth Andrade MD [address] [place] [address] [address] 07/13/2019 Office Visit Endocrinology Diabetes Zhen Jones MD & Metabolism [address] [place], [place] 952413 10/27/2019 Office Visit Pulmonary Disease Max Aguiar [address] [place] [address] 770285 12/08/2019 Office Visit Ophthalmology Yariel Tineo MD [address] [place] [address]. [place] [address] [phone] Health Maintenance Due Date Last Done Comments [...] of this encounter Implants Implanted Type Area Whitewasher Device Shelf Model / Identifier Expiration Serial / Date Lot Prolene Mesh MESH Right: Ethicon 12/20/2020 PMSK / Implanted: Qty: 1 on 07/04/2016 by Alfonso Martinez MD at [facility] [employer] PMSK / [id number] Stent-06/24/2016 Implanted: 06/24/2016 (Quantity not on file) documented as of this encounter Results Not on filedocumented in this encounter Visit Diagnoses Diagnosis Other fatigue - Primary Vitamin B12 deficiency Other B-complex deficiencies Uric acid stone in urine Urinary calculus, unspecified Chest pain, unspecified type Skin problem documented in this encounter Insurance Payer Benefit Plan / Subscriber ID Effective Phone Address Type Group Dates [facility] [id number] 2017-Lux [phone] [address] HMO [employer] HEALTH CHOICE [phone] [place] [address] (Home) [place] [address] documented as of this encounter Advance Directives Name Relationship Healthcare Agent Communication Relationship Keaton Nelson Spouse Primary healthcare agent [email or web address] Elisabeth Soliz Sibling First alternate healthcare [phone] agent (Mobile)
--- OUTSIDE RECORDS SUMMARY | 2019-05-11 01:05 | XMS REPORT | Summary of Care ---
:1970 Author Organization [facility] - Health Address [address] [place] [address] Care Team Providers Name Role Phone Lilibeth Andrade MD Primary Care Provider Libby Espinoza RN Unavailable Unavailable Al Valiente MD Unavailable Junito Quezada MD Unavailable Karena Anand TOBACCO GROWER Unavailable Unavailable Tito Kirkpatrick Unavailable Reason for Visit Reason Comments LAB Encounter Details Date Type Department Care Team Description 03/09/2019 Disbursing Officer Visit [facility] Health Professional Robert Adkins MD [address] [facility] [address] [place] [address] Hypopotassemia Office Building [facility] Phlebotomy Lab Professional Office Building [address] [place] [address] , [address] [place] [address] Allergies Active Allergy Reactions Severity [...] as of this encounter (statuses as of 03/09/2019) Medications Medication Sig Dispensed Refills Start Date End Date Status docusate 100 mg Take 1 capsule by 30 capsule 0 07/04/2016 Active capsule mouth 2 (two) times daily as needed for Constipation. Insulin [place], Use as directed, 400 Each 1 09/19/2017 [...] Take 3 tablets by 180 tablet 2 03/03/2019 Active tabletIndications: mouth 3 (three) Acute on chronic times daily. diastolic congestive heart failure, Hypopotassemia documented as of this encounter (statuses as of 03/09/2019) Active Problems Problem Noted Date Bradycardia 10/06/2018 [...] Overview: Added automatically from request for surgery [id number] Syncope 04/01/2017 Chest pain, rule out acute [...] 06/12/2016 Coronary artery disease involving [place] coronary artery of [place] heart 06/12 with angina pectoris [place] (myocardial infarction) 06/12/2016 Type 2 diabetes mellitus without complication 06/12/2016 Essential hypertension 06/12/2016 History of alcohol abuse Overview: Sober for 16 years documented as of this encounter (statuses as of 03/09/2019) Resolved Problems Problem Noted Date Resolved Date Chest pain radiating to arm 08/08/2016 08/19/2016 Abdominal pain 07/19/2016 08/19/2016 History of epidural anesthesia 07/04/2016 08/19/2016 Morbid obesity with body mass index of 50 or higher 06/26/2016 08/19/2016 Obesity (BMI 30-39.9) 06/12/2016 08/19/2016 documented as of this encounter (statuses as of 03/09/2019) Immunizations Name Administration Dates Next Due Td [...] Date Type Specialty Care Team Description 03/11/2019 Disbursing Officer Visit Clinical Medical Dagoberto Luna MD [address] [place] [address] [phone] Laboratory 1, Adc Lab 03/15/2019 Hospital Encounter Surgery Dagoberto Luna MD [address] [place] [address] [phone] 03/15/2019 Surgery Surgery Dagoberto Luna LUMBAR EPIDURAL MD Tania STEROID INJECTION [address], [place] [phone] 03/24/2019 Office Visit Gastroenterology Ioana Mccarty MD [address] [place] [address] [phone] 03/26/2019 Nurse Visit Anti-coagulation Clinic Nurse, Vtc Anticoag 03/29/2019 Hospital Encounter Surgery Dagoberto Luna MD [address] [place] [address] [phone] 03/29/2019 Surgery Surgery Dagoberto Luna LUMBAR EPIDURAL MD Tania STEROID INJECTION [address], [place] [address] [phone] 04/01/2019 Office Visit Internal Medicine Lilibeth Andrade MD [address] [facility] [address] [place], [place] [address]365 04/12/2019 Hospital Encounter Surgery Dagoberto Luna MD [address], [place] [address] [phone] 04/12/2019 Surgery Surgery Dagoberto Luna LUMBAR EPIDURAL MD Tania STEROID INJECTION [address], [place] [address] 04/27/2019 Office Visit Cardiology Robert Adkins MD [address] [place] [address] [phone] 05/04/2019 Office Visit Cardiology Al Valiente MD [address] [facility] [address] [place] [address] [phone] 05/13/2019 Office Visit Internal Medicine Lilibeth Andrade MD [address] [place] [address] Dr [address] [place] [address] [phone] 05/27/2019 Appointment Cardiac Outpt-Simi, Electrophysiology Pacemaker/Icd 06/01/2019 Office Visit Internal Medicine Lilibeth Andrade MD [address] [place] [address] Dr [address] [place] [address] 07/06/2019 Office Visit Internal Medicine Lilibeth Andrade MD [address] [place] [address] Dr [address] [place] [address] [phone] 07/13/2019 Office Visit Endocrinology Diabetes Zhen Jones MD & Metabolism [address] [place] [address] [phone] 10/27/2019 Office Visit Pulmonary Disease Max Aguiar [address] [place] [address] Dr [address] [place] [address] [phone] 12/08/2019 Office Visit Ophthalmology Yariel Tineo MD [address] [place] [address] Health Maintenance Due Date Last Done Comments LDL-C 07/28/2019 07/28/2018, 01/11/2018, 12/31/2017, Additional history exists HgA1C 08/25/2019 02/24/2019, 07/28/2018, 03/30/2018, Additional history exists EYE EXAM 11/20/2019 11/19/2018, 11/13/2017 URINE MICROALBUMIN 02/07/2020 02/06/2019, 01/19/2018, 08/20/2016 PNEUMOCOCCAL 0-64 YEARS 02/24/2020 Postponed from COMBINED SERIES (1 of - 1975 (Patient PPSV23) Refused) FOOT EXAM 02/25/2020 02/24/2019, 02/24/2019, 09/22/2018, Additional history exists CREATININE (SERUM) 03/02/2020 03/02/2019, 02/23/2019, 02/13/2019, Additional history exists INFLUENZA VACCINE (#1) 2020 Postponed from 02/21/2019 (Patient Refused) DTaP,Tdap,and Td Vaccines 06/26/2027 06/26/2017, 03/19/2015 Postponed from (1 - Tdap) 06/27/2017 (Not Indicated) documented as of this encounter Implants Implanted Type Area Coronary Clinical Specialist Device Shelf Model / Identifier Expiration Serial / Date Lot Prolene Mesh MESH Right: Ethicon 12/20/2020 PMSK / Implanted: Qty: 1 on 07/04/2016 by Alfonso Martinez MD at [facility] [employer]dom[employer] PMSK / [id number] Stent-06/24/2016 Implanted: 06/24/2016 (Quantity not on file) documented as of this encounter Results Not on filedocumented in this encounter Visit Diagnoses Diagnosis Hypopotassemia documented in this encounter Insurance Payer Benefit Plan / Subscriber ID Effective Phone Address Type Group Dates [facility] [id number] 2017-Prese [phone] HMO HEALTH [employer] HEALTH CHOICE [phone] [place] [address] (Home) [place] [address] documented as of this encounter Advance Directives Name Relationship Healthcare Agent Communication Relationship Keaton Nelson Spouse Primary healthcare agent Elisabeth Soliz Sibling First alternate healthcare [phone] agent (Mobile)
--- OUTSIDE RECORDS SUMMARY | 2019-05-11 01:06 | XMS REPORT | Summary of Care ---
:1970 Author Organization [facility] Address [address] [place] [address] Care Team Providers Name Role Phone Lilibeth Andrade MD Primary Care Provider Libby Espinoza RN Unavailable Unavailable Al Valiente MD Unavailable Junito Quezada MD Unavailable Karena Anand CLINICAL LABORATORY MEDICAL DIRECTOR Unavailable Unavailable Casimiro Tito Unavailable Reason for Visit Reason Comments LAB WORK Auth/Cert Status Reason Specialty Diagnoses / Referred By Referred To Procedures Contact Contact Clinical Medical Diagnoses Radiculopathy, lumbar region [facility] Lab Laboratory Procedures CBC [address] [facility] [place] [address] Encounter Details Date Type Department Care Team Description 03/09/[address] [facility] Dagoberto Luna MD [address] [place] [address] Radiculopathy, Phlebotomy 1, Adc Lab unspecified spinal Lab-[place] (Primary Dx) [address] [facility] [place] [address] Allergies Active Allergy Reactions Severity [...] times daily as needed for Constipation. Insulin [place], Use as directed, 400 Each 1 09/19/2017 [...] Overview: Added automatically from request for surgery [id number] Syncope 04/01/2017 Chest pain, rule out acute [...] Chest pain 06/12/2016 Coronary artery disease involving [place] coronary artery of [place] heart 06/12 with angina pectoris [place] (myocardial [...] Date Type Specialty Care Team Description 03/11/2019 Garbage Person Visit Clinical Medical Dagoberto Luna MD [address] [place] [address] Laboratory 1, Adc Lab 03/15/2019 Hospital Encounter Surgery Dagoberto Luna MD [address] [place] [address] [phone] 03/15/2019 Surgery Surgery Dagoberto Luna LUMBAR EPIDURAL MD Tania STEROID INJECTION [address] [place] [address] [phone] 03/24/2019 Office Visit Gastroenterology Ioana Mccarty MD [facility] [place] [address] [phone] 03/26/2019 Nurse Visit Anti-coagulation Clinic Nurse, Vtc Anticoag 03/29/2019 Hospital Encounter Surgery Dagoberto Luna MD [address] [place] [address] [phone] 03/29/2019 Surgery Surgery Dagoberto Luna LUMBAR EPIDURAL MD Tania STEROID INJECTION [address] [place] [address] [phone] 04/01/2019 Office Visit Internal Medicine Lilibeth Andrade MD [address] [place] [address] 04/12/2019 Hospital Encounter Surgery Dagoberto Luna MD [address] [place] [address] [phone] 04/12/2019 Surgery Surgery Dagoberto Luna LUMBAR EPIDURAL MD Tania STEROID INJECTION [address] [place] [address] [phone] 04/27/2019 Office Visit Cardiology Robert Adkins MD [address] [facility] [address] [place], [place] [address] 05/04/2019 Office Visit Cardiology Al Valiente MD [address] [place] [address] [place] [address] [phone] 05/13/2019 Office Visit Internal Medicine Lilibeth Andrade MD [address] [place] [address] Dr [address] [place] [address] [phone] 05/27/2019 Appointment Cardiac Outpt-Simi, Electrophysiology Pacemaker/Icd 06/01/2019 Office Visit Internal Medicine Lilibeth Andrade MD [address] [place] [address] Dr [address] [place] [address] 114[address] 07/06/2019 Office Visit Internal Medicine Lilibeth Andrade MD [address] [place] [address] Dr [address] [place] [address] [phone] 07/13/2019 Office Visit Endocrinology Diabetes Zhen Jones MD & Metabolism [address] [place] [address] [phone] 10/27/2019 Office Visit Pulmonary Disease Max Aguiar [address] [place] [address] 280315 12/08/2019 Office Visit Ophthalmology Yariel Tineo MD [address] [place] [address]. [place] [address] Health Maintenance Due Date Last [...] of this encounter Implants Implanted Type Area Legal Director Device Shelf Model / Identifier Expiration Serial / Date Lot Prolene Mesh MESH Right: Ethicon 12/20/2020 PMSK / Implanted: Qty: 1 on 07/04/2016 by Alfonso Martinez MD at [facility] [employer]dom[employer] PMSK / [id number] Stent-06/24/2016 Implanted: 06/24/2016 (Quantity not on file) documented as of this encounter Procedures Procedure Name Priority Date/Time Associated Diagnosis Comments CBC WITH DIFFERENTIAL Routine 03/09/2019 11:39 Radiculopathy, Results for this AM CDT unspecified spinal procedure are in region the results section. CBC WITH DIFF Routine 03/09/2019 11:39 Radiculopathy, Results for this AM CDT unspecified spinal procedure are in region the results section. documented in this encounter Results CBC WITH DIFFERENTIAL (03/09/2019 11:39 AM CDT) WBC 8.82 4.20 - 10.70 [facility] 10*3/L HOSPITAL LABORATORY RBC 5.01 4.26 - 5.52 [facility] 10*6/L HOSPITAL LABOR[facility]ORY HGB 12.0 (L) 12.2 - 16.4 [facility] g/dL HOSPITAL LABORATORY HCT 39.2 38.4 - 49.3 % [facility] LABORATORY MCV 78.2 (L) 81.7 - 95.6 fL [facility] LABORATORY MCH 24.0 (L) 26.1 - 32.7 pg [facility] LABORATORY MCHC 30.6 (L) 31.2 - 35.0 [facility] g/dL [facility] RDW-SD 48.9 38.5 - 51.6 fL [facility] LABORATORY RDW-CV 17.9 (H) 12.1 - 15.4 % [facility] LABORATORY PLT 294 150 - 328 [facility] 10*3/L [facility] MPV 9.7 (L) 9.8 - 13.0 fL [facility] LABORATORY NRBC/100 WBC 0.0 0.0 - 10.0 /100 [facility] WBCs [facility] NRBC x10^3 <0.01 10*3/L [facility] LABORATORY GRAN MAT (NEUT) % 68.7 % [facility] LABORATORY IMM GRAN % 0.50 % [facility] LABORATORY LYMPH % 20.9 % [facility] LABORATORY MONO % 7.6 % [facility] LABORATORY EOS % 1.7 % [facility] LABORATORY BASO % 0.6 % [facility] LABORATORY GRAN MAT x10^3(ANC) 6.07 1.99 - 6.95 [facility] 10*3/uL HOSPITAL LABORATORY IMM GRAN x10^3 0.04 0.00 - 0.06 [facility] 10*3/uL HOSPITAL LABORATORY LYMPH x10^3 1.84 1.09 - 3.23 [facility] 10*3/uL HOSPITAL LABOR[facility]ORY MONO x10^3 0.67 0.36 - 1.02 [facility] 10*3/uL HOSPITAL LABORATORY EOS x10^3 0.15 0.06 - 0.53 [facility] 10*3/uL HOSPITAL LABORATORY BASO x10^3 0.05 0.01 - 0.09 [facility] 10*3/uL [facility] Specimen Blood Performing Organization Address City/State/Zipcode Phone Number [facility] CLIA: [id number], [address] [place] [address] documented in this encounter Visit Diagnoses Diagnosis Radiculopathy, unspecified spinal region - Primary documented in this encounter Insurance Payer Benefit Plan / Subscriber ID Effective Phone Address Type Group Dates HIM [facility] [id number] 2017-Lux [phone] HMO HEALTH CHOICE HEALTH CHOICE [phone] [place] [address] (Home) [place] [address] documented as of this encounter Advance Directives Name Relationship Healthcare Agent Communication Relationship Keaton Nelson Spouse Primary healthcare agent [email or web address] Elisabeth Soliz Sibling First alternate healthcare [phone] agent (Mobile)
--- OUTSIDE RECORDS SUMMARY | 2019-05-11 01:07 | XMS REPORT | Summary of Care ---
:1970 Author Organization [facility] - [facility] Address [address] [place] [address] Care Team Providers Name Role Phone Lilibeth Andrade MD Primary Care Provider Libby Espinoza RN Unavailable Unavailable Al Valiente MD Unavailable Junito Quezada MD Unavailable Karena Anand ELECTRONIC PLOTTING SYSTEM OPERATOR Unavailable Unavailable Tito Kirkpatrick Unavailable Encounter Details Date Type Department Care Team Description 02/26/2019 Patient Secure [facility] Pediatric Lilibeth Andrade and Adult Primary MD [facility] [place] [address] [address] [phone] [address] [phone] Allergies Active Allergy Reactions Severity Noted Date [...] times daily as needed for Constipation. Insulin [place], Use as directed, 400 Each 1 09/19/2017 [...] Overview: Added automatically from request for surgery [id number] Syncope 04/01/2017 Chest pain, rule out acute [...] Chest pain 06/12/2016 Coronary artery disease involving [place] coronary artery of [place] heart 06/12 with angina pectoris [place] (myocardial [...] Date Type Specialty Care Team Description 03/11/2019 X Ray Operator Visit Clinical Medical Dagoberto Luna MD [address], [place] [address] [phone] Laboratory 1, Adc Lab 03/15/2019 Hospital Encounter Surgery Dagoberto Luna MD [address], [place] [address] [phone] 03/15/2019 Surgery Surgery Dagoberto Luna LUMBAR EPIDURAL MD Tania STEROID INJECTION [address], [place] [address] [phone] 03/24/2019 Office Visit Gastroenterology Ioana Mccarty MD [address] [place] [address] [phone] 03/26/2019 Nurse Visit Anti-coagulation Clinic Nurse, Christen Anticoag 03/29/2019 Hospital Encounter Surgery Dagoberto Luna MD [address] [place] [phone] 03/29/2019 Surgery Surgery Dagoberto Luna LUMBAR EPIDURAL MD Tania STEROID INJECTION [address] [place] [phone] 04/01/2019 Office Visit Internal Medicine Lilibeth Andrade MD [address] [place] [address] Dr [address] [place] [address] [phone] 04/12/2019 Hospital Encounter Surgery Dagoberto Luna MD [address] [place] [phone] 04/12/2019 Surgery Surgery Dagoberto Luna LUMBAR EPIDURAL MD Tania STEROID INJECTION [address] [place] [address] [phone] 04/27/2019 Office Visit Cardiology Robert Adkins MD [address] [place] [address] [phone] 05/04/2019 Office Visit Cardiology Al Valiente MD [address] [facility] [address] [place] [address] [phone] 05/13/2019 Office Visit Internal Medicine Lilibeth Andrade MD [address] [place] [address] Dr [address] [place] [address] [phone] 05/27/2019 Appointment Cardiac Outpt-Simi, Electrophysiology Pacemaker/Icd 06/01/2019 Office Visit Internal Medicine Lilibeth Andrade MD [address] [place] [address] Dr [address] [place] [address] [phone] 07/06/2019 Office Visit Internal Medicine Lilibeth Andrade MD [address] [place] [address] Dr [address] [place] [address] [phone] 07/13/2019 Office Visit Endocrinology Diabetes Zhen Jones MD & Metabolism [address] [place] [address] [phone] 10/27/2019 Office Visit Pulmonary Disease Max Aguiar [address] [place] [address] Dr [address] [place] [address] [phone] 12/08/2019 Office Visit Ophthalmology Yariel Tineo MD [address] [place] [address] 192340 Health Maintenance Due Date Last Done Comments [...] of this encounter Implants Implanted Type Area News Director Device Shelf Model / Identifier Expiration Serial / Date Lot Prolene Mesh MESH Right: Ethicon 12/20/2020 PMSK / Implanted: Qty: 1 on 07/04/2016 by Alfonso Martinez MD at [facility] Abdomen [employer] PMSK / [id number] Stent-06/24/2016 Implanted: 06/24/2016 (Quantity not on file) documented as of this encounter Results Not on filedocumented in this encounter Insurance Payer Benefit Plan / Subscriber ID Effective Phone Address Type Group Dates [facility] [id number] 2017-Lux [phone] [address] HMO HEALTH [employer] HEALTH CHOICE [phone] [place] [address] documented as of this encounter Advance Directives Name Relationship Healthcare Agent Communication Relationship Keaton Nelson Spouse Primary healthcare agent [email or web address] Elisabeth Soliz Sibling First alternate healthcare [phone] agent (Mobile)
--- OUTSIDE RECORDS SUMMARY | 2019-05-11 01:08 | XMS REPORT | Summary of Care ---
:1970 Author Organization [facility] Address [address] [place] [address] Care Team Providers Name Role Phone Lilibeth Andrade MD Primary Care Provider Libby Espinoza RN Unavailable Unavailable Al Valiente MD Unavailable Junito Quezada MD Unavailable Karena Anand PHILANTHROPY OFFICER Unavailable Unavailable Tito Kirkpatrick Unavailable Encounter Details Date Type Department Care Team Description 03/09/2019 Patient Secure [facility] Pediatric Lilibeth Andrade and Adult Primary MD [facility] [place] [address] [address] [phone] [address] [phone] Allergies Active Allergy Reactions Severity Noted Date [...] as of this encounter (statuses as of 03/10/2019) Medications Medication Sig Dispensed Refills Start Date End Date Status docusate 100 mg Take 1 capsule by 30 capsule 0 07/04/2016 Active capsule mouth 2 (two) times daily as needed for Constipation. Insulin [place], Use as directed, 400 Each 1 09/19/2017 [...] as of this encounter (statuses as of 03/10/2019) Active Problems Problem Noted Date Bradycardia 10/06/2018 [...] Overview: Added automatically from request for surgery [id number] Syncope 04/01/2017 Chest pain, rule out acute [...] of [place] heart 06/12 with angina pectoris [place] (myocardial infarction) 06/12/2016 Type 2 diabetes mellitus without complication 06/12/2016 Essential hypertension 06/12/2016 History of alcohol abuse Overview: Sober for 16 years documented as of this encounter (statuses as of 03/10/2019) Resolved Problems Problem Noted Date Resolved Date Chest pain radiating to arm 08/08/2016 08/19/2016 Abdominal pain 07/19/2016 08/19/2016 History of epidural anesthesia 07/04/2016 08/19/2016 Morbid obesity with body mass index of 50 or higher 06/26/2016 08/19/2016 Obesity (BMI 30-39.9) 06/12/2016 08/19/2016 documented as of this encounter (statuses as of 03/10/2019) Immunizations Name Administration Dates Next Due Td [...] Date Type Specialty Care Team Description 03/11/2019 Cutting And Splicing Supervisor Visit Clinical Medical Dagoberto Luna MD [address] [place] [address] [phone] Laboratory 1, Adc Lab 03/15/2019 Hospital Encounter Surgery Dagoberto Luna MD [address] [place] [address] [phone] 03/15/2019 Surgery Surgery Dagoberto Luna LUMBAR EPIDURAL S, MD STEROID INJECTION [address] [place] [place] [address] [phone] 03/24/2019 Office Visit Gastroenterology Ioana Mccarty MD [address] [place] [address] [phone] 03/26/2019 Nurse Visit Anti-coagulation Clinic Nurse, [facility] Anticoag 03/29/2019 Hospital Encounter Surgery Dagoberto Luna MD [address] [place] [address] [phone] 03/29/2019 Surgery Surgery Dagoberto Luna LUMBAR EPIDURAL MD Tania STEROID INJECTION [address] [place] [address] [phone] 04/01/2019 Office Visit Internal Medicine Lilibeth Andrade MD [address] [address] [phone] 04/12/2019 Hospital Encounter Surgery Dagoberto Luna MD [address] [place] [address] [phone] 04/12/2019 Surgery Surgery Dagoberot Luna LUMBAR EPIDURAL MD Tania STEROID INJECTION [address] [place] [address] [phone] 04/27/2019 Office Visit Cardiology Robert Adkins MD [address] [place], [place] [address] 05/04/2019 Office Visit Cardiology Al Valiente MD [address] [place], [place] [address] 05/13/2019 Office Visit Internal Medicine Lilibeth Andrade MD [address] [place] [address] [address] [place] [address] [phone] 05/27/2019 Appointment Cardiac Outpt-Simi, Electrophysiology Pacemaker/Icd 06/01/2019 Office Visit Internal Medicine Lilibeth Andrade MD [address] [place] [address] [address] [place] [address] [phone] 07/06/2019 Office Visit Internal Medicine Lilibeth Andrade MD [address] [place] [address] [address] [place], [place] [address] 07/13/2019 Office Visit Endocrinology Diabetes Zhen Jones MD & Metabolism [address] [place] [address] [phone] 10/27/2019 Office Visit Pulmonary Disease Max Aguiar [address] [place] [address] Dr [address] [place] [address] [phone] 12/08/2019 Office Visit Ophthalmology Yariel Tineo MD [address] [place] [address] Health Maintenance Due Date Last Done [...] (#1) 2020 Postponed from 02/21/2019 (Patient Refused) CREATININE (SERUM) 03/09/2020 03/09/2019, 03/02/2019, 02/23/2019, Additional history exists DTaP,Tdap,and Td Vaccines 06/26/2027 06/26/2017, 03/19/2015 Postponed from (1 - Tdap) 06/27/2017 (Not Indicated) documented as of this encounter Implants Implanted Type Area Sports Therapist Device Shelf Model / Identifier Expiration Serial / Date Lot Prolene Mesh MESH Right: Ethicon 12/20/2020 PMSK / Implanted: Qty: 1 on 07/04/2016 by Alfonso Martinez MD at [facility] [employer] PMSK / [id number] Stent-06/24/2016 Implanted: 06/24/2016 (Quantity not on file) documented as of this encounter Results Not on filedocumented in this encounter Insurance Payer Benefit Plan / Subscriber ID Effective Phone Address Type Group Dates [facility] [id number] 2017-Lux [phone] HMO HEALTH [email or web address] HEALTH CHOICE [phone] [place] [address] documented as of this encounter Advance Directives Name Relationship Healthcare Agent Communication Relationship Keaton Nelson Spouse Primary healthcare agent [email or web address] Elisabeth Soliz Sibling First alternate healthcare [phone] agent (Mobile)
--- OUTSIDE RECORDS SUMMARY | 2019-05-11 01:09 | XMS REPORT | Summary of Care ---
:1970 Author Organization [facility] Address [address] [place] [address] Care Team Providers Name Role Phone Lilibeth Andrade MD Primary Care Provider Libby Espinoza RN Unavailable Unavailable Al Valiente MD Unavailable Junito Quezada MD Unavailable Karena Anand ONLINE SERVICES MANAGER Unavailable Unavailable Tito Kirkpatrick Unavailable Encounter Details Date Type Department Care Team Description 03/10/[address] [facility] Doctor Chronic diastolic CHF Msg Cardiology- [place] Unassigned, No (congestive heart [facility] Name failure) (Primary Dx) [address] [place] [phone] Allergies Active Allergy Reactions Severity Noted Date [...] as of this encounter (statuses as of 03/11/2019) Medications Medication Sig Dispensed Refills Start Date End Date Status docusate 100 mg Take 1 capsule by 30 capsule 0 07/04/2016 Active capsule mouth 2 (two) times daily as needed for Constipation. Insulin [place], Use as directed, 400 Each 1 09/19/2017 [...] gram (1.62 %) gel pumpIndications: Low testosterone Cholecalciferol, Take by mouth. 0 Active Vitamin D3, (VITAMIN D3) 2,000 unit tablet hydrocortisone 2.5 % Apply to affected 30 g 3 01/26/2019 Active creamIndications: area(s) 2 (two) Seborrheic times daily. dermatitis polyethylene glycol Take 17 g by mouth 238 g 3 01/26/2019 Active (MIRALAX) 17 daily. gram/dose powderIndications: Constipation, unspecified constipation type cyanocobalamin 1 mL by 12 mL 3 [...] as of this encounter (statuses as of 03/11/2019) Active Problems Problem Noted Date Bradycardia 10/06/2018 [...] Overview: Added automatically from request for surgery [id number] Syncope 04/01/2017 Chest pain, rule out acute [...] pain 06/12/2016 Coronary artery disease involving [place] coronary artery of [place] heart 06/12 with angina pectoris [place] (myocardial infarction) 06/12/2016 Type 2 diabetes mellitus without complication 06/12/2016 Essential hypertension 06/12/2016 History of alcohol abuse Overview: Sober for 16 years documented as of this encounter (statuses as of 03/11/2019) Resolved Problems Problem Noted Date Resolved Date Chest pain radiating to arm 08/08/2016 08/19/2016 Abdominal pain 07/19/2016 08/19/2016 History of epidural anesthesia 07/04/2016 08/19/2016 Morbid obesity with body mass index of 50 or higher 06/26/2016 08/19/2016 Obesity (BMI 30-39.9) 06/12/2016 08/19/2016 documented as of this encounter (statuses as of 03/11/2019) Immunizations Name Administration Dates Next Due Td [...] Treatment Date Type Specialty Care Team Description 03/15/2019 Hospital Encounter Surgery Dagoberto Luna MD [address] [place] [address] [phone] 03/15/2019 Surgery Surgery Dagoberto Luna LUMBAR EPIDURAL MD Tania STEROID INJECTION [address] [place] [address] [phone] 03/24/2019 Office Visit Gastroenterology Ioana Mccarty MD [address] [place] [address] [phone] 03/26/2019 Nurse Visit Anti-coagulation Clinic Nurse, [facility] Anticoag 03/29/2019 Hospital Encounter Surgery Dagoberto Luna MD [address] [place] [address] [phone] 03/29/2019 Surgery Surgery Dagoberto Luna LUMBAR EPIDURAL MD Tania STEROID INJECTION [address] [place] [phone] 04/01/2019 Office Visit Internal Medicine Lilibeth Andrade MD [address] [place] [address] [address] [phone] 04/12/2019 Hospital Encounter Surgery Dagoberto Luna MD [address] [place] [phone] 04/12/2019 Surgery Surgery Dagoberto Luna LUMBAR EPIDURAL MD Tania STEROID INJECTION [address] [place] [phone] 04/27/2019 Office Visit Cardiology Robert Adkins MD [address] [place], [place] [address] 05/04/2019 Office Visit Cardiology Al Valiente MD [address] [place] [address] [address] [place], [place] [address] 05/13/2019 Office Visit Internal Medicine Lliibeth Andrade MD [address] [place] [address] [address] [phone] 05/27/2019 Appointment Cardiac Outpt-Simi, Electrophysiology Pacemaker/Icd 06/01/2019 Office Visit Internal Medicine Lilibeth Andrade MD [address] [place] [address] [address] [phone] 07/06/2019 Office Visit Internal Medicine Lilibeth Andrade MD [address] [place] [address] [address] 07/13/2019 Office Visit Endocrinology Diabetes Zhen Jones MD & Metabolism [address] [place] [address] [phone] 10/27/2019 Office Visit Pulmonary Disease Max Aguiar [address] [place] [address] Dr [address] [place] [address] [phone] 12/08/2019 Office Visit Ophthalmology Yariel Tineo MD [address] [place] [address] Name Type Priority Associated Diagnoses Order Schedule BASIC METABOLIC PANEL LAB Routine Chronic diastolic CHF 1 Occurrences starting (NA, K, CL, CO2, (congestive heart 03/11/2019 until GLUCOSE, BUN, failure) 03/11/2020 CREATININE, CA) N-TERMINAL PRO-BNP LAB Routine Chronic diastolic CHF 1 Occurrences starting (congestive heart 03/11/2019 until failure) 03/11/2020 MAGNESIUM LAB Routine Chronic diastolic CHF 1 Occurrences starting (congestive heart 03/11/2019 until failure) 03/11/2020 Health Maintenance Due Date Last Done Comments [...] of this encounter Implants Implanted Type Area Mis Specialist Device Shelf Model / Identifier Expiration Serial / Date Lot Prolene Mesh MESH Right: Ethicon 12/20/2020 PMSK / Implanted: Qty: 1 on 07/04/2016 by Alfonso Martinez MD at [facility] [employer] PMSK / [id number] Stent-06/24/2016 Implanted: 06/24/2016 (Quantity not on file) documented as of this encounter Results Not on filedocumented in this encounter Visit Diagnoses Diagnosis Chronic diastolic CHF (congestive heart failure) - Primary documented in this encounter Insurance Payer Benefit Plan / Subscriber ID Effective Phone Address Type Group Dates [facility] [id number] 2017-Lux [phone]MO [id number] ([email or web address]) HEALTH CHOICE [phone] [place] [address] documented as of this encounter Advance Directives Name Relationship Healthcare Agent Communication Relationship Keaton Nelson Spouse Primary healthcare agent [email or web address] Elisabeth Soliz Sibling First alternate healthcare [phone] agent (Mobile)
--- OUTSIDE RECORDS SUMMARY | 2019-05-11 01:11 | XMS REPORT | Clinical Summary ---
:1970 Author Organization [facility] - [facility] Address [address] [place] [address] Care Team Providers Name Role Phone Lilibeth Andrade MD Primary Care Provider Libby Espinoza RN Unavailable Unavailable Al Valiente MD Unavailable Junito Quezada MD Unavailable Karena Anand GROCERY CLERK MARKING Unavailable Unavailable Tito Kirkpatrick Unavailable Allergies Active [...] times daily as needed for Constipation. Insulin [place], Use as directed, 400 Each 1 09/19/2017 [...] times daily. diastolic congestive heart failure, Hypopotassemia ARIPiprazole 10 mg Take 1 tablet by 30 tablet 1 03/11/2019 Active tabletIndications: mouth daily. Generalized anxiety disorder, Panic disorder without agoraphobia, Severe episode of recurrent major depressive disorder, without psychotic features clonazePAM 1 mg Take 1 pill PO in 120 tablet 1 03/11/2019 Active tabletIndications: the AM, 1 PO in the Generalized anxiety afternoon, 1 pill disorder, Panic PO in the evening. disorder without May take additional agoraphobia 1 pill as needed acute anxiety. desvenlafaxine Take 2 tablets by 60 tablet 1 03/11/2019 Active succinate (PRISTIQ) mouth daily. 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 [place] (myocardial [...] Encounters Date Type Specialty Care Team Description 03/10/2019 Refill Internal Medicine Lupe, Refill Request Lilibeth Payne MD 03/09/2019 International Marketing Manager Visit Clinical Medical Dagoberto Luna Radiculopathy , Laboratory MD Tania unspecified spinal 1, Adc Lab region (Primary Dx) 03/09/2019 International Marketing Manager Visit Phlebotomy Robert Adkins Hypopkrystleemia MD Namita 2, Adc Lab 03/03/2019 Telephone Cardiology Robert Adkins LAB WORK; Lab MD Namita Results; Medication Dose Change 03/02/2019 International Marketing Manager Visit Phlebotomy Robert Adkins Acute on chronic diastolic congestive heart failure; MD Namita Hypopotassemia 2, Adc Lab 03/02/2019 Orders Only Doctor Unassigned, [place] 02/26/2019 Nurse Visit Anti-coagulation Nat Anticoagulation management encounter; Clinic Lety Reyna pulmonary embolism without acute cor pulmonale, unspecified chronicity; ST elevation myocardial infarction involving right coronary artery Nurse, Sdenrike Anticotodd 02/24/2019 International Marketing Manager Visit Clinical Medical Zhen Jones MD Secondary male Laboratory 1, Adc Lab hypogonadism 02/24/2019 Office Visit Endocrinology Diabetes Zhen Jones MD 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); & Metabolism Secondary male hypogonadism; Dyslipidemia; Essential hypertension; High serum aldosterone 02/24/2019 Orders Only Doctor Unassigned, [place] 02/24/2019 Telephone Cardiology Robert Adkins Results MD Namita 02/23/2019 Office Visit Internal Medicine Lupe, Lety fatigue ( Primary Dx); Lilibeth Payne MD Vitamin B12 deficiency; Uric acid stone in urine; Chest pain, unspecified type; Skin problem 02/23/2019 International Marketing Manager Visit Phlebotomy Silvia Shaffer MD 2, Adc Lab 02/23/2019 Orders Only Doctor Unassigned, [place] 02/23/2019 Refill Internal Medicine Lupe, Refill Request Lilibeth Payne MD 02/19/2019 Telephone Cardiology Robert Adkins LAB WORK; Lab MD Namita Results 02/14/2019 Telephone Cardiology Sundar Novak, Abnormal Lab MBBS 02/13/2019 Emergency Emergency Medicine Amisha Toth Weakness (Primary J, DO Dx) 02/12/2019 International Marketing Manager Visit Phlebotomy Andrade, Hypopotassemia Lilibeth Payne MD 2, Adc Lab 02/12/2019 Orders Only Doctor Unassigned, [place] 02/09/2019 Office Visit Cardiology Robert Adkins Hypopotassemia (Primary Dx); MD Namita Chronic diastolic CHF (congestive heart failure); Coronary artery disease of [place] artery of [place] heart with stable angina pectoris 02/09/2019 Emergency Emergency Medicine Kurt Natarajan, Jhoan, unspecified type (Primary Dx); Hypokalemia; Uncontrolled type 2 diabetes mellitus with hyperglycemia 02/09/2019 Telephone Cardiology Robert Adkins Assessment MD Namita 02/08/2019 Telephone Cardiology Sundar Novak, Abnormal Lab MBBS 02/06/2019 International Marketing Manager Visit Clinical Medical Andrade, Hypouricemia ( Primary Dx); Laboratory Lilibeth Payne MD Need for prophylactic chemotherapy; 1, Adc Lab Chronic diastolic congestive heart failure 02/06/2019 Orders Only Doctor Unassigned, [place] 02/05/2019 Telephone Cardiology Robert Adkins Pre-Visit Planning; MD Namita Appointment 01/29/2019 Nurse Visit Anti-coagulation [place], Other pulmonary embolism without acute cor pulmonale, unspecified chronicity; Flori Prasad MD Anticoagulation management encounter Nurse, [facility] Antico 01/26/2019 Office Visit Internal Medicine Lupe, Seborrheic dermatitis (Primary Dx); Lilibeth Payne MD Constipation, unspecified constipation type; Other fdc (current) drug therapy; Iron deficiency anemia due to chronic blood loss; Sore throat; Ear ache; Frequent headaches; Nausea 01/09/2019 Telephone Cardiology Robert Adkins Results MD Namita 01/06/2019 [facility] Radiology devan [facility] Encounter MD Namita 01/06/2019 [facility] En[facility] MD Namita 01/05/2019 [facility] Radiology Robert Adkins Encounter MD Namita 01/05/2019 [facility] Radiology Robert Adkins Encounter MD Namita 01/05/2019 Orders Only Doctor Unassigned, [place] 01/03/2019 Refill Endocrinology Ciara Lock Refill Request & Metabolism MD Ritu 01/01/2019 Nurse Visit Anti-coagulation [place], Anticoagulation management encounter; Flori Prasad MD Other pulmonary embolism without acute cor pulmonale, unspecified chronicity; Nurse, [facility] Coronary artery disease involving [place] coronary artery of [place] heart with angina pectoris Anticoag 12/24/2018 Orders Only Doctor Unassigned, [place] 12/17/2018 Refill Gastroenterology Bibiana, Refill Request MD Ioana 12/14/2018 Refill Internal Medicine Lupe, Refill Request Lilibeth Payne MD 12/11/2018 Refill Endocrinology Ciara Lock Refill Request & Metabolism MD Ritu from Last 3 Months Immunizations Name Administration [...] Sign Reading Time Taken Comments Blood Pressure 115/81 03/11/2019 9:45 AM CDT Pulse 85 03/11/2019 9:45 AM CDT Temperature 36.7 C (98.1 F) 02/23/2019 10:04 AM CDT Respiratory Rate 18 03/11/2019 9:45 AM CDT Oxygen Saturation 97% 02/23/2019 10:04 AM CDT Inhaled Oxygen Concentration - - Weight 131.1 kg (289 lb) 03/11/2019 9:45 AM CDT Height 177.8 cm (5' 10") 02/13/2019 1:45 AM CDT Body Mass Index 41.47 02/13/2019 1:45 AM CDT Plan of Treatment Date Type Specialty Care Team Description 03/15/2019 Hospital Encounter Surgery Dagoberto Luna MD [address] [place] [id number] [phone] 03/15/2019 Surgery Surgery Dagoberto Luna LUMBAR EPIDURAL MD Tania STEROID INJECTION [address] [place] [address] [phone] 03/24/2019 Office Visit Gastroenterology Ioana Mccarty MD [address] [place] [address] [phone] 03/26/2019 Nurse Visit Anti-coagulation Clinic Nurse, Vtc Anticoag 03/29/2019 Hospital Encounter Surgery Dagoberto Luna MD [address] [place] [address] [phone] 03/29/2019 Surgery Surgery Dagoberto Luna LUMBAR EPIDURAL MD Tania STEROID INJECTION [address] [place] [address] [phone] 04/01/2019 Office Visit Internal Medicine Lilibeth Andrade MD [address] [place] [address] 04/12/2019 Hospital Encounter Surgery Dagoberto Luna MD [address] [place] [phone] 04/12/2019 Surgery Surgery Dagoberto Luna LUMBAR EPIDURAL MD Tania STEROID INJECTION [address] [place] [phone] 04/27/2019 Office Visit Cardiology Robert Adkins MD [address] [place] [address] [id number] [place], [place] [phone] 05/04/2019 Office Visit Cardiology Al Valiente MD [address] [place] [address] [place] [phone] 05/13/2019 Office Visit Internal Medicine Lilibeth Andrade MD [address] [place] [address] [address] [place] [address] [phone] 05/27/2019 Appointment Cardiac Outpt-Simi, Electrophysiology Pacemaker/Icd 06/01/2019 Office Visit Internal Medicine Lilibeth Andrade MD [address] [place] [address] [address] [place] [address] [phone] 07/06/2019 Office Visit Internal Medicine Lilibeth Andrade MD [address] [place] [address] [address] [place] [address] [phone] 07/13/2019 Office Visit Endocrinology Diabetes Zhen Jones MD & Metabolism [address] [place] [address] [phone] 10/27/2019 Office Visit Pulmonary Disease Max Aguiar [address] [place] [address] Dr [address] [place] [address] [phone] 12/08/2019 Office Visit Ophthalmology Yariel Tineo MD [address] [place] [address]. [place], [place] [phone] Health Maintenance Due Date Last Done Comments [...] 06/27/2017 (Not Indicated) Implants Implanted Type Area Concrete Products Dispatcher Device Shelf Model / Identifier Expiration Serial / Date Lot Prolene Mesh MESH Right: Ethicon 12/20/2020 PMSK / Implanted: Qty: 1 on 07/04/2016 by Alfonso Martinez MD at [facility] [employer] PMSK / [id number] Stent-06/24/2016 Implanted: 06/24/2016 (Quantity not on file) Procedures Procedure Name Priority Date/Time Associated Diagnosis Comments CBC WITH DIFFERENTIAL Routine 03/09/2019 11:39 Radiculopathy, Results for this AM CDT unspecified spinal procedure are in region the results section. CBC WITH DIFF Routine 03/09/2019 11:39 Radiculopathy, Results for this AM CDT unspecified spinal procedure are in region the results section. BASIC METABOLIC PANEL Routine 03/09/2019 11:01 Hypopotassemia Results for this (NA, K, CL, CO2, AM CDT procedure are in GLUCOSE, BUN, the results CREATININE, CA) section. BASIC METABOLIC PANEL Routine 03/02/2019 10:26 Acute on chronic Results for this (NA, K, CL, CO2, AM CDT diastolic congestive procedure are in GLUCOSE, BUN, heart failure the results CREATININE, CA) Hypopotassemia section. AGREEMENTS Routine 03/02/2019 12:01 AUTHORIZATIONS AND AM CDT IRREVOCABLE ASSIGNMENTS (FORM 2001) POCT PT/INR(COAGUCHEK) Routine 02/26/2019 Other pulmonary Results for this embolism without procedure are in acute cor pulmonale, the results unspecified section. chronicity TESTOSTERONE Routine 02/24/2019 4:17 Secondary male Results for this PM CDT hypogonadism procedure are in the results section. PROSTATIC SPECIFIC Add-on 02/24/2019 4:17 Secondary male Results for this ANTIGEN SCREEN PM CDT hypogonadism procedure are in the results section. PATIENT QUESTIONNAIRE Routine 02/24/2019 12:01 AM CDT POCT HEMOGLOBIN A1C Routine 02/24/2019 Type 2 diabetes Results for this TEST mellitus with cardiac procedure are in complication the results section. BASIC METABOLIC PANEL Routine 02/23/2019 9:49 Hypopotassemia Results for this (NA, K, CL, CO2, AM CDT procedure are in GLUCOSE, BUN, the results CREATININE, CA) section. MAGNESIUM Routine 02/23/2019 9:49 Hypopotassemia Results for this AM CDT procedure are in the results section. AGREEMENTS Routine 02/23/2019 12:01 AUTHORIZATIONS AND AM CDT IRREVOCABLE ASSIGNMENTS (FORM 2000) CBC WITH DIFFERENTIAL STAT 02/13/2019 2:17 Weakness Results for this AM CDT procedure are in the results section. MAGNESIUM STAT 02/13/2019 2:17 Weakness Results for this AM CDT procedure are in the results section. TROPONIN I STAT 02/13/2019 2:17 Weakness Results for this AM CDT procedure are in the results section. URINALYSIS STAT 02/13/2019 2:17 Weakness Results for this AM CDT procedure are in the results section. BASIC METABOLIC PANEL STAT 02/13/2019 2:17 Weakness Results for this (NA, K, CL, CO2, AM CDT procedure are in GLUCOSE, BUN, the results CREATININE, CA) section. CBC WITH DIFF Routine 02/13/2019 2:17 Weakness Results for this AM CDT procedure are in the results section. EKG-12 LEAD STAT 02/13/2019 2:14 AM CDT EKG-12 LEAD Routine 02/13/2019 1:58 AM CDT NOTICE OF PRIVACY Routine 02/13/2019 1:37 PRACTICES AM CDT CONSENT/REFUSAL FOR Routine 02/13/2019 1:36 DIAGNOSIS AND AM CDT TREATMENT EMERGENCY SERVICES Routine 02/13/2019 12:01 AGREEMENTS AND AM CDT AUTHORIZATIONS MAGNESIUM Routine 02/12/2019 8:14 Hypopotassemia Results for this AM CDT procedure are in the results section. BASIC METABOLIC PANEL Routine 02/12/2019 8:14 Hypopotassemia Results for this (NA, K, CL, CO2, AM CDT procedure are in GLUCOSE, BUN, the results CREATININE, CA) section. AGREEMENTS Routine 02/12/2019 12:01 AUTHORIZATIONS AND AM CDT IRREVOCABLE ASSIGNMENTS (FORM 2000) CBC WITH DIFFERENTIAL STAT 02/09/2019 9:51 Fatigue, unspecified Results for this AM CDT type procedure are in the results section. MAGNESIUM STAT 02/09/2019 9:51 Fatigue, unspecified Results for this AM CDT type procedure are in the results section. COMP. METABOLIC PANEL STAT 02/09/2019 9:51 Fatigue, unspecified Results for this (03415) AM CDT type procedure are in the results section. CBC WITH DIFF STAT 02/09/2019 9:51 Fatigue, unspecified Results for this AM CDT type procedure are in the results section. EKG-12 LEAD Routine 02/09/2019 9:47 AM CDT EKG-12 LEAD Routine 02/09/2019 9:41 AM CDT CONSENT/REFUSAL FOR Routine 02/09/2019 9:27 DIAGNOSIS AND AM CDT TREATMENT PHYSICIAN ORDERS Routine 02/09/2019 12:01 AM CDT EMERGENCY SERVICES Routine 02/09/2019 12:01 AGREEMENTS AND AM CDT AUTHORIZATIONS CBC WITH DIFFERENTIAL Routine 02/06/2019 9:01 Hypouricemia Results for this AM CDT Need for prophylactic procedure are in chemotherapy the results section. MAGNESIUM Routine 02/06/2019 9:01 Chronic diastolic Results for this AM CDT congestive heart procedure are in failure the results section. CREATININE, URINE Routine 02/06/2019 9:01 Hypouricemia Results for this RANDOM AM CDT Need for prophylactic procedure are in chemotherapy the results section. MICROALBUMIN URINE Routine 02/06/2019 9:01 Hypouricemia Results for this AM CDT Need for prophylactic procedure are in chemotherapy the results section. URINE CULTURE Routine 02/06/2019 9:01 Hypouricemia Results for this AM CDT Need for prophylactic procedure are in chemotherapy the results section. URINALYSIS Routine 02/06/2019 9:01 Hypouricemia Results for this AM CDT Need for prophylactic procedure are in chemotherapy the results section. N-TERMINAL PRO-BNP Routine 02/06/2019 9:01 Hypouricemia Results for this AM CDT Need for prophylactic procedure are in chemotherapy the results section. URIC ACID Routine 02/06/2019 9:01 Hypouricemia Results for this AM CDT Need for prophylactic procedure are in chemotherapy the results section. COMP. METABOLIC PANEL Routine 02/06/2019 9:01 Hypouricemia Results for this (79274) AM CDT Need for prophylactic procedure are in chemotherapy the results section. CBC WITH DIFF Routine 02/06/2019 9:01 Hypouricemia Results for this AM CDT Need for prophylactic procedure are in chemotherapy the results section. TOTAL IRON BINDING Routine 02/06/2019 9:01 Iron deficiency Results for this CAPACITY AM CDT anemia due to chronic procedure are in blood loss the results section. ZINC, SERUM Routine 02/06/2019 9:01 Other exterminator termite Results for this AM CDT (current) drug procedure are in therapy the results section. HIGH SENSITIVITY CRP Routine 02/06/2019 9:01 Other exterminator termite Results for this AM CDT (current) drug procedure are in therapy the results section. HOMOCYSTEINE Routine 02/06/2019 9:01 Other exterminator termite Results for this AM CDT (current) drug procedure are in therapy the results section. FOLATE Routine 02/06/2019 9:01 Other fdc Results for this AM CDT (current) drug procedure are in therapy the results section. VITAMIN D, 25-OH Routine 02/06/2019 9:01 Other fdc Results for this AM CDT (current) drug procedure are in therapy the results section. VITAMIN B12, LEVEL Routine 02/06/2019 9:01 Other exterminator termite Results for this AM CDT (current) drug procedure are in therapy the results section. VITAMIN B6, PLASMA Routine 02/06/2019 9:01 Other fdc Results for this AM CDT (current) drug procedure are in therapy the results section. VITAMIN B1 (THIAMINE), Routine 02/06/2019 9:01 Other fdc Results for this WHOLE BLOOD AM CDT (current) drug procedure are in therapy the results section. FERRITIN SERUM Add-on 02/06/2019 9:01 Iron deficiency Results for this AM CDT procedure are in the results section. IRON Add-on 02/06/2019 9:01 Iron deficiency Results for this AM CDT procedure are in the results section. NOTICE OF PRIVACY Routine 02/06/2019 8:26 PRACTICES AM CDT CONSENT/REFUSAL FOR Routine 02/06/2019 8:25 DIAGNOSIS AND AM CDT TREATMENT AGREEMENTS Routine 02/06/2019 12:01 AUTHORIZATIONS AND AM CDT IRREVOCABLE ASSIGNMENTS (FORM 2001) POCT PT/INR(COAGUCHEK) Routine 01/29/2019 Other pulmonary Results for this embolism without procedure are in acute cor pulmonale, the results unspecified section. chronicity NM MYOCARDIUM Routine 01/06/2019 11:16 Coronary artery Results for this PERFUSION STRESS AND AM CDT disease involving procedure are in REST [place] coronary the results artery of [place] section. heart with angina pectoris CONSENT/REFUSAL FOR Routine 01/05/2019 9:12 DIAGNOSIS AND AM CDT TREATMENT ASSIGNMENT OF BENEFITS Routine 01/05/2019 9:11 AM CDT HEART STATION Routine 01/05/2019 12:01 PHARMACOLOGIC AM CDT WORKSHEET (NUCLEAR EKG) POCT PT/INR(COAGUCHEK) Routine 01/01/2019 Other pulmonary Results for this embolism without procedure are in acute cor pulmonale, the results unspecified section. chronicity EXTERNAL PROVIDER Routine 12/24/2018 12:01 RECORDS AM CDT from Last 3 Months Results CBC WITH DIFFERENTIAL (03/09/2019 11:39 AM CDT)Only the most recent of4 resultswithin the time period is included. WBC 8.82 4.20 - 10.70 [facility] 10*3/L [facility] RBC 5.01 4.26 - 5.52 [facility] 10*6/L [facility] HGB 12.0 (L) 12.2 - 16.4 [facility] g/dL [facility] HCT 39.2 38.4 - 49.3 % [facility] MCV 78.2 (L) 81.7 - 95.6 fL [facility] MCH 24.0 (L) 26.1 - 32.7 pg [facility] MCHC 30.6 (L) 31.2 - 35.0 [facility] g/dL [facility] RDW-SD 48.9 38.5 - 51.6 fL [facility] RDW-CV 17.9 (H) 12.1 - 15.4 % [facility] PLT 294 150 - 328 [facility] 10*3/L [facility] MPV 9.7 (L) 9.8 - 13.0 fL [facility] NRBC/100 WBC 0.0 0.0 - 10.0 /100 [facility] WBCs [facility] NRBC x10^3 <0.01 10*3/L [facility] GRAN MAT (NEUT) % 68.7 % [facility] IMM GRAN % 0.50 % [facility] LYMPH % 20.9 % [facility] MONO % 7.6 % [facility] EOS % 1.7 % [facility] BASO % 0.6 % [facility] GRAN MAT x10^3(ANC) 6.07 1.99 - 6.95 [facility] 10*3/uL [facility]ITAL [facility] IMM GRAN x10^3 0.04 0.00 - 0.06 [facility] 10*3/uL [facility] LYMPH x10^3 1.84 1.09 - 3.23 [facility] 10*3/uL [facility] MONO x10^3 0.67 0.36 - 1.02 [facility] 10*3/uL [facility] EOS x10^3 0.15 0.06 - 0.53 [facility] 10*3/uL [facility] BASO x10^3 0.05 0.01 - 0.09 [facility] 10*3/uL [facility] Specimen Blood Performing Organization Address City/State/Zipcode Phone Number [facility] CLIA: [id number], [address] [place] [address] BASIC METABOLIC PANEL (NA, K, CL, CO2, GLUCOSE, BUN, CREATININE, CA) (2018 11:01 AM CDT)Only the most recent of5 resultswithin the time period is included. NA 141 135 - 145 [facility] mmol/L [facility] K 4.1 3.5 - 5.0 [facility] mmol/L [facility] CL 103 98 - 108 mmol/L [facility] CO2 TOTAL 28 23 - 31 mmol/L [facility] AGAP 10 2 - 16 [facility] BUN 14 7 - 23 mg/dL [facility] GLUCOSE 144 (H) 70 - 110 mg/dL [facility] CREATININE 1.02 0.60 - 1.25 [facility] mg/dL [facility] CALCIUM 9.2 8.6 - 10.6 [facility] mg/dL [facility] eGFR Calculation 77.6 mL/min/1.73m2 [facility] (Non[facility] LABORATORY [place]) eGFR Calculation 94.1 mL/min/1.73m2 [facility] () [facility] Specimen Blood Narrative Performed At Association of Glomerular Filtration Rate (GFR) [facility] LAB[facility] and Staging of Kidney Disease* + [...] tests). Performing Organization Address City/State/Zipcode Phone Number [facility] CLIA: [id number], [address] [place] [address] AGREEMENTS AUTHORIZATIONS AND IRREVOCABLE ASSIGNMENTS (FORM 2000) (03/02/2019 12 :01 AM CDT)Only the most recent of4 resultswithin the time period is included. Specimen Performing Organization Address City/State/Zipcode Phone Number [facility] POCT PT/INR([facility] (02/26/2019)Only the most recent of3 resultswithin the time period is included. POCT PT/INR 3.3 (A) 0.8 - 1.4 INR POCT PT/SEC 39.8 SEC Specimen Blood - CAPILLARY TESTOSTERONE (02/24/2019 4:17 PM CDT) Pathologist [facility] TESTOST 150.0 132.0 - 813.0 ng/dL [facility]OR[facility]ORY SERVICES Specimen Blood Narrative Performed At [facility] [place] SERVICES Adult Female:6-77 ng/dL Adult Male <50 years:132-813 ng/dL Adult Male >50 years:72-623 ng/dL Females on Control Pills may have higher results. Obese patients may have lower results. Biotin has been reported to cause a negative bias, interpret results relative to patient's use of biotin. Performing Organization Address City/State/Zipcode Phone Number [facility]ORY SERVICES CLIA: [id number], [address] [place] [address] [facility] PROSTATIC SPECIFIC ANTIGEN SCREEN (02/24/2019 4:17 PM CDT) [facility] PSA 0.25 <=4.00 ng/mL [facility] LABORAT[facility] Specimen Blood Narrative Performed At Biotin has been reported to cause a negative [facility] LABOR[facility]ORY bias, interpret results relative to patient's use of biotin. Performing Organization Address City/State/Zipcode Phone Number [facility] CLIA: [id number], [address] [place] [address] PATIENT QUESTIONNAIRE (02/24/2019 12:01 AM CDT) Specimen Performing Organization Address City/State/Zipcode Phone Number HIM POCT HEMOGLOBIN A1C TEST (02/24/2019) [facility] POCT HBA1C 8.2 4 - 6 % Specimen Blood - CAPILLARY MAGNESIUM (02/23/2019 9:49 AM CDT)Only the most recent of5 resultswithin the time period is included. [facility] MAGNESIUM 1.8 1.7 - 2.4 mg/dL [facility] LABOR[facility] Specimen Blood Performing Organization Address City/[facility]/Zipcode Phone Number [facility] CLIA: [id number], [address] [place] [address] Urinalysis (02/13/2019 2:17 AM CDT)Only the most recent of2 resultswithin the time period is included. [facility] APPEARANCE Clear Clear [facility] COLOR Yellow Yellow [facility] PH 6.5 4.8 - 8.0 [facility] SP GRAVITY 1.010 1.003 - 1.030 [facility] GLU U QUAL Negative Negative [facility] BLOOD Negative Negative [facility] KETONES Negative Negative [facility] PROTEIN Negative Negative [facility] UROBILIN 0.2 mg/dL 0-1.0 mg/dL [facility] BILIRUBIN Negative Negative [facility] NITRITE Negative Negative [facility] LEUK TRE Negative Negative [facility] RBC/HPF 1 0 - 3 HPF [facility] WBC/HPF 0 0 - 5 HPF [facility] BACTERIA Negative Negative [facility] Specimen Urine - URINE, CLEAN CATCH Performing Organization Address City/[facility] Phone Number [facility] CLIA: [id number], [address] [place] [address] Troponin I (02/13/2019 2:17 AM CDT) TROPONIN I <0.012 <=0.034 ng/mL [facility] Specimen Blood - VENOUS Narrative Performed At Equal or Less than 0.034 ng/ml---Normal [facility] Note: Cardiac troponin begins to rise [...] biotin. Performing Organization Address City/State/Zipcode Phone Number [facility] CLIA: [id number], [address] [place] [address] EKG-12 LEAD (02/13/2019 1:58 AM CDT) Specimen Performing Organization Address City/State/Zipcode Phone Number [facility] NOTICE OF PRIVACY PRACTICES (02/13/2019 1:37 AM CDT)Only the most recent of2 resultswithin the time period is included. Specimen Performing Organization Address City/[facility] Phone Number [facility] CONSENT/REFUSAL FOR DIAGNOSIS AND TREATMENT (02/13/2019 1:36 AM CDT)Only the most recent of4 resultswithin the time period is included. Specimen Performing Organization Address [facility] Phone Number [facility] EMERGENCY SERVICES AGREEMENTS AND AUTHORIZATIONS (02/13/2019 12:01 AM CDT)Only the most recent of2 resultswithin the time period is included. Specimen Performing Organization Address City/[facility] Phone Number [facility] COMP. METABOLIC PANEL ([id number]) (02/09/2019 9:51 AM CDT)Only the most recent of2 resultswithin the time period is included. NA 136 135 - 145 [facility] mmol/L [facility] K 3.2 (L) 3.5 - 5.0 [facility] mmol/L [facility] CL 91 (L) 98 - 108 mmol/L [facility] CO2 TOTAL 33 (H) 23 - 31 mmol/L [facility] AGAP 12 2 - 16 [facility] BUN 23 7 - 23 mg/dL [facility] GLUCOSE 248 (H) 70 - 110 mg/dL [facility] CREATININE 1.03 0.60 - 1.25 [facility] mg/dL [facility] TOTAL BILI 0.5 0.1 - 1.1 mg/dL [facility] CALCIUM 9.2 8.6 - 10.6 [facility] mg/dL [facility] T PROTEIN 8.5 (H) 6.3 - 8.2 g/dL [facility] ALBUMIN 4.4 3.5 - 5.0 g/dL [facility] ALK PHOS 111 34 - 122 U/L [facility] ALT(SGPT) 24 9 - 51 U/L [facility] AST(SGOT) 46 (H) 13 - 40 U/L [facility] eGFR Calculation 76.8 mL/min/1.73m2 [facility] ([facility] LABORATORY [place]) eGFR Calculation 93.0 mL/min/1.73m2 [facility] () [facility] Specimen Blood - ARM, RIGHT Narrative Performed At Association of Glomerular Filtration Rate (GFR) [facility] and Staging of Kidney Disease* + [...] abnormalities in imaging tests). Performing Organization Address [facility] Phone Number [facility] CLIA: [id number], [address] [place] [address] EKG-12 LEAD (02/09/2019 9:41 AM CDT) Specimen Performing Organization Address [facility] Phone Number [facility] PHYSICIAN ORDERS (02/09/2019 12:01 AM CDT) Specimen Performing Organization Address [facility] Phone Number [facility] VITAMIN B1 (THIAMINE), WHOLE BLOOD (02/06/2019 9:01 AM CDT) Vitamin B1, Whole 104 70 - 180 [facility] Blood Comment: nmol/L INTERPRETIVE INFORMATION: Vitamin B1, Whole Blood This assay measures the concentration of thiamine diphosphate (TDP), the primary active form of vitamin B1. Approximately 90 percent of vitamin B1 present in whole blood is TDP. Thiamine and thiamine monophosphate, which comprise the remaining 10 percent, are not measured. Test developed and characteristics determined by [facility]. See Compliance Statement B: [employer]/CS Performed by [facility], [address] [place] [address] www.[employer], Piyush Price MD, Lab. Director Specimen Blood Performing Organization Address [facility] Phone Number [facility] [address] [place] [address] CREATININE, URINE RANDOM (02/06/2019 9:01 AM CDT) CREAT U 63.2 mg/dL [facility] Specimen Urine - URINE, CLEAN CATCH Performing Organization Address [facility] Phone Number [facility] CLIA: [id number], [address] [place] [address] VITAMIN D, 25-OH (02/06/2019 9:01 AM CDT) VIT D 25OH 60 25 - 80 ng/mL [facility] LABORATORY SERVICES 25-Hydroxy D3 60.2 ng/mL [facility] LABORATORY SERVICES 25-Hydroxy D2 <2.5 ng/mL [facility]OR[facility]ORY SERVICES Specimen Blood Narrative Performed At Test developed and characteristics determined by [facility] LABORATORY SERVICES Laboratory Services. Performing Organization Address [facility] Phone Number [facility] LABORATORY SERVICES CLIA: [id number], [address] [place] [address] [facility] N-TERMINAL PRO-BNP (02/06/2019 9:01 AM CDT) NT-proBNP 25 <=125 pg/mL [facility] Specimen Blood Narrative Performed At Biotin has been reported to cause a negative [facility] bias, interpret results relative to patient's use of biotin. Performing Organization Address [facility] Phone Number [facility] CLIA: [id number], [address] [place] [address] HOMOCYSTEINE (02/06/2019 9:01 AM CDT) Homocysteine 9.5 6.6 - 14.8 umol/L [facility] LABORATORY SERVICES Specimen Blood Performing Organization Address City/State/Zipcode Phone Number [facility]OR[facility]ORY SERVICES CLIA: [id number], [address] [place] [address] [phone] [facility] HIGH SENSITIVITY CRP (02/06/2019 9:01 AM CDT) HS CRP 4.75 (H) <0.74 mg/dL [facility] LABORATORY SERVICES Specimen Blood Performing Organization Address City/State/Zipcode Phone Number [facility]ATORY SERVICES CLIA: [id number], [address] [place] [address] [facility] URINE CULTURE (02/06/2019 9:01 AM CDT) URINE CULTURE No aerobic organisms [facility] LABORATORY isolated SERVICES Specimen Urine - URINE, CLEAN CATCH Performing Organization Address [facility] Phone Number [facility]ATORY SERVICES CLIA: [id number], [address] [place] [address] [phone] [facility] MICROALBUMIN URINE (02/06/2019 9:01 AM CDT) CREAT U 62.6 mg/dL [facility]ORATORY SERVICES MICROALB U 3 0 - 45 ug/mL [facility] LABORATORY SERVICES MICROAL/CR 542 0-3,500 ug/mmol [facility] LABORATORY creatinine SERVICES Specimen Urine - URINE, CLEAN CATCH Performing Organization Address [facility] Phone Number [facility]ATORY SERVICES CLIA: [id number], [address] [place] [address] [facility] TOTAL IRON BINDING CAPACITY (02/06/2019 9:01 AM CDT) TIBC 314 250 - 410 ug/dL [facility] % FE SAT 17 (L) 20 - 50 % [facility] Specimen Blood Performing Organization Address [facility] Phone Number [facility] CLIA: [id number], [address] [place] [address] FOLATE (02/06/2019 9:01 AM CDT) FOLATE SER 15.0 3.0 - 20.0 ng/mL [facility] LABORATORY SERVICES Specimen Blood Performing Organization Address City/[facility] Phone Number [facility]ORATORY SERVICES CLIA: [id number], [address] [place] [address] [facility] VITAMIN B12, LEVEL (02/06/2019 9:01 AM CDT) VIT B12 543 240 - 930 pg/mL [facility] LABORATORY SERVICES Specimen Blood Narrative Performed At Biotin has been reported to cause a positive bias, interpret [facility] SERVICES results relative to patient's use of biotin. Performing Organization Address City/[facility] Phone Number [facility] LABORATORY SERVICES CLIA: [id number], [address] [place] [address] [phone] [facility] IRON (02/06/2019 9:01 AM CDT) IRON 52 50 - 160 ug/dL [facility]OR[facility] Specimen Blood Performing Organization Address City/State/Zipcode Phone Number [facility] CLIA: [id number], [address] [place] [address] FERRITIN SERUM (02/06/2019 9:01 AM CDT) FERRITIN 66.3 18.0 - 464.0 ng/mL [facility] Specimen Blood Narrative Performed At Biotin has been reported to cause a negative [facility] bias, interpret results relative to patient's use of biotin. Performing Organization Address City/[facility] Phone Number [facility] CLIA: [id number], [address] [place] [address] URIC ACID (02/06/2019 9:01 AM CDT) URIC ACID 7.2 3.6 - 8.0 mg/dL [facility] Specimen Blood Performing Organization Address City/[facility] Phone Number [facility] CLIA: [id number], [address] [place] [address] VITAMIN B6, PLASMA (02/06/2019 9:01 AM CDT) VIT B6 154.9 (H) 20.0 - 125.0 [employer] Comment: nmol/L INTERPRETIVE INFORMATION: Vitamin B6 (Pyridoxal 5-Phosphate) Pyridoxal 5'-phosphate measured in a specimen collected following an 8-hour or overnight fast accurately indicates vitamin B6 nutritional status. Non-fasting specimen concentration reflects recent vitamin intake. Test developed and characteristics determined by [facility]. See Compliance Statement B: [employer]/CS Performed by [facility], [address] [place] [address] www.[employer], Piyush Price MD, Lab. Director Specimen Blood Performing Organization Address [facility] Phone Number [facility] [address] [place] [address] ZINC, SERUM (02/06/2019 9:01 AM CDT) ZINC 52.1 (L) 60.0 - 120.0 [facility] Comment: ug/dL INTERPRETIVE INFORMATION: Zinc, Serum or Plasma Elevated results may be due to skin or collection-related contamination, including the use of a noncertified metal-free collection/transport tube. If contamination concerns exist due to elevated levels of serum/plasma zinc, confirmation with a second specimen collected in a certified metal-free tube is recommended. Circulating zinc concentrations are dependent on albumin status and are depressed with malnutrition.Zinc may also be lowered with infection, inflammation, stress, oral contraceptives, and .Zinc may be elevated with zinc supplementation or fasting.Elevated zinc concentrations may interfere with copper absorption. Test developed and characteristics determined by [facility]. See Compliance Statement B: [employer]/ Performed by [facility], [address] [place] [address] www.[email or web address], Piyush Price MD, Lab. Director Specimen Blood Performing Organization Address City/State/Zipcode Phone Number [facility] [address] [place] [address] WK MYOCARDIUM PERFUSION STRESS AND REST (01/06/2019 11:16 [...] Normal left ventricular function. Performing Organization Address [facility] Phone Number PACS/VR/DOSE ASSIGNMENT OF BENEFITS (01/05/2019 9:11 AM CDT) Specimen Performing Organization Address [facility] Phone Number [facility] HEART STATION PHARMACOLOGIC WORKSHEET (NUCLEAR EKG) (01/05/2019 12:01 AM CDT) Specimen Performing Organization Address City/State/Zipcode Phone Number HIM EXTERNAL PROVIDER RECORDS (12/24/2018 12:01 AM CDT) Specimen Performing Organization Address City/State/Zipcode Phone Number HIM from Last 3 Months Insurance Payer Benefit Plan / Subscriber ID Effective Phone Address Type Group Dates HIM COMMUNITY COUNTS INCLUDE 234 BEDS AT [facility] [id number] 2017-Lux [phone] HMO HEALTH [employer] HE[employer] [id number] [place] [address] Advance Directives Name Relationship Healthcare Agent Communication Relationship Keaton Nelson Spouse Primary healthcare agent [email or web address] Elisabeth Soliz Sibling First alternate healthcare [phone] agent (Mobile)
--- OUTSIDE RECORDS SUMMARY | 2019-05-11 01:14 | XMS REPORT | Summary of Care ---
:1970 Author Organization [facility] Address [address] [place] [address] Care Team Providers Name Role Phone Lilibeth Andrade MD Primary Care Provider Libby Espinoza RN Unavailable Unavailable Al Valiente MD Unavailable Junito Quezada MD Unavailable Karena Anand WINDOWS SERVER SUPPORT TECHNICIAN Unavailable Unavailable Tito Kirkpatrick Unavailable Reason for Visit Reason Comments LAB Encounter Details Date Type Department Care Team Description 03/12/[address] [facility] Robert Adkins MD [address] [facility] [id number] [place] [address] Chronic diastolic Professional Office 2, [facility] Lab CHF (congestive Building Phlebotomy heart failure) Lab Professional Office Building [address] [place] [address] , [address] [place] [address] Allergies Active Allergy Reactions Severity [...] as of this encounter (statuses as of 03/12/2019) Medications Medication Sig Dispensed Refills Start Date End Date Status docusate 100 mg Take 1 capsule by 30 capsule 0 07/04/2016 Active capsule mouth 2 (two) times daily as needed for Constipation. 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 OR (myocardial infarction) 06/12/2016 Type 2 diabetes mellitus without complication 06/12/2016 Essential hypertension 06/12/2016 History of alcohol abuse Overview: Sober for 16 years documented as of this encounter (statuses as of 03/12/2019) Resolved Problems Problem Noted Date Resolved Date Chest pain radiating to arm 08/08/2016 08/19/2016 Abdominal pain 07/19/2016 08/19/2016 History of epidural anesthesia 07/04/2016 08/19/2016 Morbid obesity with body mass index of 50 or higher 06/26/2016 08/19/2016 Obesity (BMI 30-39.9) 06/12/2016 08/19/2016 documented as of this encounter (statuses as of 03/12/2019) Immunizations Name Administration Dates Next Due Td [...] [id number] [place] [phone] 03/15/2019 Surgery Surgery Dagoberto Luna LUMBAR EPIDURAL MD Tania STEROID INJECTION [id number] [place] [address] [phone] 03/24/2019 Office Visit Gastroenterology Ioana Mccarty MD [address] [place] [address] [phone] 03/26/2019 Nurse Visit Anti-coagulation Clinic Nurse, [facility] Anticoag 03/29/2019 Hospital Encounter Surgery Dagoberto Luna MD [id number] [place] [address] [phone] 03/29/2019 Surgery Surgery Dagoberto Luna LUMBAR EPIDURAL MD Tania STEROID INJECTION [address] [place] [address] [phone] 04/01/2019 Office Visit Internal Medicine Lilibeth Andrade MD [address] [place] [address] Dr [address] [place] [address] [phone] 04/12/2019 Hospital Encounter Surgery Dagoberto Luna MD [id number] [place] [address] [phone] 04/12/2019 Surgery Surgery Dagoberto Luna LUMBAR EPIDURAL MD Tania STEROID INJECTION [address] [place] [address] [phone] 04/27/2019 Office Visit Cardiology Robert Adkins MD [address] [place], [place] [address] 05/04/2019 Office Visit Cardiology Al Valiente MD [address] [facility] [address] [place] [address] [phone] 05/13/2019 Office Visit Internal Medicine Lilibeth Andrade MD [address] [place] [address] [address] [phone] 05/27/2019 Appointment Cardiac Outpt-Simi, Electrophysiology Pacemaker/Icd 06/01/2019 Office Visit Internal Medicine Lilibeth Andrade MD [address] [place] [address] Dr [address] [place] [address] [phone] 07/06/2019 Office Visit Internal Medicine Lilibeth Andrade MD [address] [place] [address] Dr [address] [place] [address] [phone] 07/13/2019 Office Visit Endocrinology Diabetes Zhen Jones MD & Metabolism [address] [place] [address] [phone] 10/27/2019 Office Visit Pulmonary Disease Max Aguiar [address] [place] [address] Dr [address] [place] [address] [phone] 12/08/2019 Office Visit Ophthalmology Yariel Tineo MD [address] [place] [address] Health Maintenance Due Date Last Done [...] of this encounter Implants Implanted Type Area General Expeditor Device Shelf Model / Identifier Expiration Serial / Date Lot Prolene Mesh MESH Right: Ethicon 12/20/2020 PMSK / Implanted: Qty: 1 on 07/04/2016 by Alfonso Martinez MD at [facility] [employer] PMSK / [id number] Stent-06/24/2016 Implanted: 06/24/2016 (Quantity not on file) documented as of this encounter Results Not on filedocumented in this encounter Visit Diagnoses Diagnosis Chronic diastolic CHF (congestive heart failure) documented in this encounter Insurance Payer Benefit Plan / Subscriber ID Effective Phone Address Type Group Dates [facility] [id number] 2017-Lux [phone] [address] HMO [employer] [phone] [place] [address] (Home) [place] [address] documented as of this encounter Advance Directives Name Relationship Healthcare Agent Communication Relationship Keaton Nelson Spouse Primary healthcare agent [email or web address] Elisabeth Soliz Sibling First alternate healthcare [phone] agent (Mobile)
--- OUTSIDE RECORDS SUMMARY | 2019-05-11 01:14 | XMS REPORT | Clinical Summary ---
:1970 Author Organization [facility] Address [address] [place] [address] Care Team Providers Name Role Phone Lilibeth Andrade MD Primary Care Provider Libby Espinoza RN Unavailable Unavailable Al Valiente MD Unavailable Junito Quezada MD Unavailable Karena Anand SEC REPORTING CONSULTANT Unavailable Unavailable Tito Kirkpatrick Unavailable Allergies Active [...] times daily as needed for Constipation. Insulin [place], Use as directed, 400 Each 1 09/19/2017 [...] Overview: Added automatically from request for surgery [id number] Syncope 04/01/2017 Chest pain, rule out acute [...] of [place] heart 06/12 with angina pectoris [place] (myocardial infarction) 06/12/2016 Type 2 diabetes mellitus [...] Lupe, Refill Request Lilibeth Payne MD 03/09/2019 Cyber Incident Handler Visit Clinical Medical Dagoberto Luna Radiculopathy , Laboratory MD Tania unspecified spinal 1, Adc Lab region (Primary Dx) 03/09/2019 Cyber Incident Handler Visit Phlebotomy Robert Adkins Hypopkrystleemia MD Namita 2, Adc Lab 03/03/2019 Telephone Cardiology Robert Adkins LAB WORK; Lab MD Namita Results; Medication Dose Change 03/02/2019 Cyber Incident Handler Visit Phlebotomy Robert Adkins Acute on chronic diastolic congestive heart failure; MD Namita Hypopotassemia 2, Adc Lab 03/02/2019 Orders Only Doctor Unassigned, Freer 02/26/2019 Nurse Visit Anti-coagulation Nat Anticoagulation management encounter; Clinic Lety Reyna pulmonary embolism without acute cor pulmonale, unspecified chronicity; ST elevation myocardial infarction involving right coronary artery Nurse, Alenrike Anticotodd 02/24/2019 Cyber Incident Handler Visit Clinical Medical Zhen Jonse MD Secondary male Laboratory 1, Adc Lab hypogonadism 02/24/2019 Office Visit Endocrinology Diabetes Zhen Jones MD 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); & Metabolism Secondary male hypogonadism; Dyslipidemia; Essential hypertension; High serum aldosterone 02/24/2019 Orders Only Doctor Unassigned, Freer 02/24/2019 Telephone Cardiology Robert Adkins Results MD Namita 02/23/2019 Office Visit Internal Medicine Lupe, Lety fatigue ( Primary Dx); Lilibeth Payne MD Vitamin B12 deficiency; Uric acid stone in urine; Chest pain, unspecified type; Skin problem 02/23/2019 Cyber Incident Handler Visit Phlebotomy Silvia Shaffer MD 2, Adc Lab 02/23/2019 Orders Only Doctor Unassigned, Freer 02/23/2019 Refill Internal Medicine Lupe, Refill Request Lilibeth Payne MD 02/19/2019 Telephone Cardiology Robert Adkins LAB WORK; Lab MD Namita Results 02/14/2019 Telephone Cardiology Sundar Novak, Abnormal Lab MBBS 02/13/2019 Emergency Emergency Medicine Amisha Toth Weakness (Primary J, DO Dx) 02/12/2019 Cyber Incident Handler Visit Phlebotomy Andrade, Hypopotassemia Lilibeth Payne MD 2, Adc Lab 02/12/2019 Orders Only Doctor Unassigned, Freer 02/09/2019 Office Visit Cardiology Robert Adkins Hypopotassemia (Primary Dx); MD Namita Chronic diastolic CHF (congestive heart failure); Coronary artery disease of [place] artery of [place] heart with stable angina pectoris 02/09/2019 Emergency Emergency Medicine Kurt Natarajan, Jhoan, unspecified type (Primary Dx); Hypokalemia; Uncontrolled type 2 diabetes mellitus with hyperglycemia 02/09/2019 Telephone Cardiology Robert Adkins Assessment MD Namita 02/08/2019 Telephone Cardiology Sundar Novak, Abnormal Lab MBBS 02/06/2019 Cyber Incident Handler Visit Clinical Medical Andrade, Hypouricemia ( Primary Dx); Laboratory Lilibeth Payne MD Need for prophylactic chemotherapy; 1, Adc Lab Chronic diastolic congestive heart failure 02/06/2019 Orders Only Doctor Unassigned, Freer 02/05/2019 Telephone Cardiology Robert Adkins Pre-Visit Planning; MD Namita Appointment 01/29/2019 Nurse Visit Anti-coagulation [place], Other pulmonary embolism without acute cor pulmonale, unspecified chronicity; Flori Prasad MD Anticoagulation management encounter Nurse, [facility] Antico 01/26/2019 Office Visit Internal Medicine Lupe, Seborrheic dermatitis (Primary Dx); Lilibeth Payne MD Constipation, unspecified constipation type; Other longterm (current) drug therapy; Iron deficiency anemia due to chronic blood loss; Sore throat; Ear ache; Frequent headaches; Nausea 01/09/2019 Telephone Cardiology Robert Adkins Results MD Namita 01/06/2019 [facility] Radiology devan [facility] Encounter MD Namita 01/06/2019 [facility] En[facility] MD Namita 01/05/2019 [facility] Radiology Robert Adkins Encounter MD Namita 01/05/2019 [facility] Radiology Robert Adkins Encounter MD Namita 01/05/2019 Orders Only Doctor Unassigned, Freer 01/03/2019 Refill Endocrinology Ciara Lock Refill Request & Metabolism MD Ritu 01/01/2019 Nurse Visit Anti-coagulation [place], Anticoagulation management encounter; Flori Prasad MD Other pulmonary embolism without acute cor pulmonale, unspecified chronicity; Nurse, [facility] Coronary artery disease involving [place] coronary artery 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 Anticoag 12/24/2018 Orders Only Doctor Unassigned, Freer 12/17/2018 Refill Gastroenterology Bibiana, Refill Request MD [...] MD [address] [place] [address] [phone] 03/15/2019 Surgery Surgery Dagoberto Luna LUMBAR EPIDURAL MD Tania STEROID INJECTION [address] [place] [address] [phone] 03/24/2019 Office Visit Gastroenterology Ioana Mccarty MD [address] [place] [address] [phone] 03/26/2019 Nurse Visit Anti-coagulation Clinic Nurse, Vtc Anticoag 03/29/2019 Hospital Encounter Surgery Dagoberto Luna MD [address] [place] [address] [phone] 03/29/2019 Surgery Surgery Dagoberto Luna LUMBAR EPIDURAL MD Tania STEROID INJECTION [address] [place] [address] [phone] 04/01/2019 Office Visit Internal Medicine Lilibeth Andrade MD [address] [place] [address] 04/12/2019 Hospital Encounter Surgery Dagoberto Luna MD [address] [place] [phone] 04/12/2019 Surgery Surgery Dagoberto Luna LUMBAR EPIDURAL MD Tania STEROID INJECTION [address] [place] [phone] 04/27/2019 Office Visit Cardiology Robert Adkins MD [address] [place] [address] [phone] [place], [place] [phone] 05/04/2019 Office Visit Cardiology Al Valiente MD [address] [place] [address] [place] [phone] 05/13/2019 Office Visit Internal Medicine Lilibeth Andrade MD [address] [place] [address] [address] [place] [address] [phone] 05/27/2019 Appointment Cardiac Outpt-Simi, Electrophysiology Pacemaker/Icd 06/01/2019 Office Visit Internal Medicine Lilibeth Andrade MD [address] [place] [address] Dr [address] [place] [address] [phone] 07/06/2019 Office Visit Internal Medicine Lilibeth Andrade MD [address] [place] [address] [address] [place] [address] [phone] 07/13/2019 Office Visit Endocrinology Diabetes Zhen Jones MD & Metabolism [address] [place] [address] [phone] 10/27/2019 Office Visit Pulmonary Disease Max Aguiar [address] [place] [address] Dr [address] [place] [address] [phone] 12/08/2019 Office Visit Ophthalmology Yariel Tineo MD [address] [place] [address]. [place], [place] 216[address] Health Maintenance Due Date Last Done Comments [...] 06/27/2017 (Not Indicated) Implants Implanted Type Area Hydrogen Power Plant Engineer Device Shelf Model / Identifier Expiration Serial / Date Lot Prolene Mesh MESH Right: Ethicon 12/20/2020 PMSK / Implanted: Qty: 1 on 07/04/2016 by Alfonso Martinez MD at [facility] [employer] PMSK / [id number] Stent-06/24/2016 Implanted: 06/24/2016 (Quantity not on file) [...] 02/09/2019 9:51 Fatigue, unspecified Results for this (49176) AM CDT type procedure are in the [...] Routine 02/06/2019 9:01 Hypouricemia Results for this (95994) AM CDT Need for prophylactic procedure are [...] section. ZINC, SERUM Routine 02/06/2019 9:01 Other predatory animal exterminator Results for this AM CDT (current) drug procedure are in therapy the results section. HIGH SENSITIVITY CRP Routine 02/06/2019 9:01 Other predatory animal exterminator Results for this AM CDT (current) drug procedure are in therapy the results section. HOMOCYSTEINE Routine 02/06/2019 9:01 Other predatory animal exterminator Results for this AM CDT (current) drug procedure are in therapy the results section. FOLATE Routine 02/06/2019 9:01 Other longterm Results for this AM CDT (current) drug procedure are in therapy the results section. VITAMIN D, 25-OH Routine 02/06/2019 9:01 Other longterm Results for this AM CDT (current) drug procedure are in therapy the results section. VITAMIN B12, LEVEL Routine 02/06/2019 9:01 Other predatory animal exterminator Results for this AM CDT (current) drug procedure are in therapy the results section. VITAMIN B6, PLASMA Routine 02/06/2019 9:01 Other longterm Results for this AM CDT (current) drug procedure are in therapy the results section. VITAMIN B1 (THIAMINE), Routine 02/06/2019 9:01 Other longterm Results for this WHOLE BLOOD AM CDT [...] CDT disease involving procedure are in REST [place] coronary the results artery of [place] section. heart with angina pectoris CONSENT/REFUSAL FOR [...] is included. WBC 8.82 4.20 - 10.70 [facility] 10*3/L [facility] RBC 5.01 4.26 - 5.52 [facility] 10*6/L [facility] HGB 12.0 (L) 12.2 - 16.4 [facility] g/dL [facility] HCT 39.2 38.4 - 49.3 % [facility] MCV 78.2 (L) 81.7 - 95.6 fL [facility] MCH 24.0 (L) 26.1 - 32.7 pg [facility] MCHC 30.6 (L) 31.2 - 35.0 [facility] g/dL [facility] RDW-SD 48.9 38.5 - 51.6 fL [facility] RDW-CV 17.9 (H) 12.1 - 15.4 % [facility] PLT 294 150 - 328 [facility] 10*3/L [facility] MPV 9.7 (L) 9.8 - 13.0 fL [facility] NRBC/100 WBC 0.0 0.0 - 10.0 /100 [facility] WBCs [facility] NRBC x10^3 <0.01 10*3/L [facility] GRAN MAT (NEUT) % 68.7 % [facility] IMM GRAN % 0.50 % [facility] LYMPH % 20.9 % [facility] MONO % 7.6 % [facility] EOS % 1.7 % [facility] BASO % 0.6 % [facility] GRAN MAT x10^3(ANC) 6.07 1.99 - 6.95 [facility] 10*3/uL [facility] IMM GRAN x10^3 0.04 0.00 - 0.06 [facility] 10*3/uL [facility] LYMPH x10^3 1.84 1.09 - 3.23 [facility] 10*3/uL [facility] MONO x10^3 0.67 0.36 - 1.02 [facility] 10*3/uL [facility] EOS x10^3 0.15 0.06 - 0.53 [facility] 10*3/uL [facility] BASO x10^3 0.05 0.01 - 0.09 [facility] 10*3/uL [facility] Specimen Blood Performing Organization Address City/State/Zipcode Phone Number [facility] CLIA: [id number], [address] [place] [address] BASIC METABOLIC PANEL (NA, K, CL, CO2, GLUCOSE, BUN, CREATININE, CA) (2018 11:01 AM CDT)Only the most recent of5 resultswithin the time period is included. NA 141 135 - 145 [facility] mmol/L [facility] K 4.1 3.5 - 5.0 [facility] mmol/L [facility] CL 103 98 - 108 mmol/L [facility] CO2 TOTAL 28 23 - 31 mmol/L [facility] AGAP 10 2 - 16 [facility] BUN 14 7 - 23 mg/dL [facility] GLUCOSE 144 (H) 70 - 110 mg/dL [facility] CREATININE 1.02 0.60 - 1.25 [facility] mg/dL [facility] CALCIUM 9.2 8.6 - 10.6 [facility] mg/dL [facility] eGFR Calculation 77.6 mL/min/1.73m2 [facility] ([facility] LABORATORY Swedish) eGFR Calculation 94.1 mL/min/1.73m2 [facility] () [facility] Specimen Blood Narrative [...] City/State/Zipcode Phone Number [facility] CLIA: [id number], [address] [place] [address] AGREEMENTS AUTHORIZATIONS AND IRREVOCABLE ASSIGNMENTS (FORM 2000) (03/02/2019 12 :01 AM CDT)Only the most recent of4 resultswithin the time period is included. Specimen Performing Organization Address City/State/Zipcode Phone Number [facility] POCT PT[facility]INR[facility] (02/26/2019)Only the most recent of3 resultswithin the time period is included. POCT PT/INR 3.3 (A) 0.8 - 1.4 INR POCT PT/SEC 39.8 SEC Specimen Blood - CAPILLARY TESTOSTERONE (02/24/2019 4:17 PM CDT) Pathologist [facility] TESTOST 150.0 132.0 - 813.0 ng/dL [facility] SERVICES Specimen Blood Narrative Performed At Normal Ranges [facility] Adult Female:6-77 ng/dL Adult Male <50 years:132-813 ng/dL Adult Male >50 years:72-623 ng/dL Females on Control Pills may have higher results. Obese patients may have lower results. Biotin has been reported to cause a negative bias, interpret results relative to patient's use of biotin. Performing Organization Address City/State/Zipcode Phone Number [facility] CLIA: [id number], [address] [place] [address] [facility] PROSTATIC SPECIFIC ANTIGEN SCREEN (02/24/2019 4:17 PM CDT) [facility] PSA 0.25 <=4.00 ng/mL [facility] LAB[facility] Specimen Blood Narrative Performed At Biotin has been reported to cause a negative [facility] LAB[facility] bias, interpret results relative to patient's use of biotin. Performing Organization Address City/State/Zipcode Phone Number [facility] CLIA: [id number], [address] [place] [address] PATIENT QUESTIONNAIRE (02/24/2019 12:01 AM CDT) Specimen Performing Organization Address City/State/Zipcode Phone Number HIM POCT HEMOGLOBIN A1C TEST (02/24/2019) [facility] POCT HBA1C 8.2 4 - 6 % Specimen Blood - CAPILLARY MAGNESIUM (02/23/2019 9:49 AM CDT)Only the most recent of5 resultswithin the time period is included. [facility] MAGNESIUM 1.8 1.7 - 2.4 mg/dL [facility] LAB[facility] Specimen Blood Performing Organization Address City/[facility]/Zipcode Phone Number [facility] CLIA: [id number], [address] [place] [address] Urinalysis (02/13/2019 2:17 AM CDT)Only the most recent of2 resultswithin the time period is included. [facility] APPEARANCE Clear Clear [facility] COLOR Yellow Yellow [facility] PH 6.5 4.8 - 8.0 [facility] SP GRAVITY 1.010 1.003 - 1.030 [facility] GLU U QUAL Negative Negative [facility] BLOOD Negative Negative [facility] KETONES Negative Negative [facility] PROTEIN Negative Negative [facility] UROBILIN 0.2 mg/dL 0-1.0 mg/dL [facility] BILIRUBIN Negative Negative [facility] NITRITE Negative Negative [facility] LEUK TRE Negative Negative [facility] RBC/HPF 1 0 - 3 HPF [facility] WBC/HPF 0 0 - 5 HPF [facility] BACTERIA Negative Negative [facility] Specimen Urine - URINE, CLEAN CATCH Performing Organization Address City/[facility] Phone Number [facility] CLIA: [id number], [address] [place] [address] Troponin I (02/13/2019 2:17 AM CDT) TROPONIN I <0.012 <=0.034 ng/mL [facility] LABOR[facility] Specimen [...] biotin. Performing Organization Address City/State/Zipcode Phone Number [facility] CLIA: [id number], [address] [place] [address] EKG-12 LEAD (02/13/2019 1:58 AM CDT) Specimen Performing Organization Address City/State/Zipcode Phone Number [facility] NOTICE OF PRIVACY PRACTICES (02/13/2019 1:37 AM CDT)Only the most recent of2 resultswithin the time period is included. Specimen Performing Organization Address City/[facility] Phone Number [facility] CONSENT/REFUSAL FOR DIAGNOSIS AND TREATMENT (02/13/2019 1:36 AM CDT)Only the most recent of4 resultswithin the time period is included. Specimen Performing Organization Address [facility] Phone Number [facility] EMERGENCY SERVICES AGREEMENTS AND AUTHORIZATIONS (02/13/2019 12:01 AM CDT)Only the most recent of2 resultswithin the time period is included. Specimen Performing Organization Address City/[facility] Phone Number [facility] COMP. METABOLIC PANEL ([id number]) (02/09/2019 9:51 AM CDT)Only the most recent of2 resultswithin the time period is included. NA 136 135 - 145 [facility] mmol/L [facility] K 3.2 (L) 3.5 - 5.0 [facility] mmol/L [facility] CL 91 (L) 98 - 108 mmol/L [facility] CO2 TOTAL 33 (H) 23 - 31 mmol/L [facility] AGAP 12 2 - 16 [facility] BUN 23 7 - 23 mg/dL [facility] GLUCOSE 248 (H) 70 - 110 mg/dL [facility] CREATININE 1.03 0.60 - 1.25 [facility] mg/dL [facility] TOTAL BILI 0.5 0.1 - 1.1 mg/dL [facility] LAB[facility] CALCIUM 9.2 8.6 - 10.6 [facility] mg/dL [facility] T PROTEIN 8.5 (H) 6.3 - 8.2 g/dL [facility] ALBUMIN 4.4 3.5 - 5.0 g/dL [facility] LAB[facility] ALK PHOS 111 34 - 122 U/L [facility] ALT(SGPT) 24 9 - 51 U/L [facility] AST(SGOT) 46 (H) 13 - 40 U/L [facility] LAB[facility] eGFR Calculation 76.8 mL/min/1.73m2 [facility] ([facility] HOSPITAL LABORATORY Swedish) eGFR Calculation 93.0 mL/min/1.73m2 [facility] () [facility] LABORATORY Specimen Blood - ARM, [...] abnormalities in imaging tests). Performing Organization Address [facility] Phone Number [facility] CLIA: [id number], [address] [place] [address] EKG-12 LEAD (02/09/2019 9:41 AM CDT) Specimen Performing Organization Address [facility] Phone Number HST PHYSICIAN ORDERS (02/09/2019 12:01 AM CDT) Specimen Performing Organization Address [facility] Phone Number HIM VITAMIN B1 (THIAMINE), WHOLE BLOOD (02/06/2019 9:01 AM CDT) Vitamin B1, Whole 104 70 - 180 [facility] Blood Comment: nmol/L INTERPRETIVE INFORMATION: Vitamin B1, Whole Blood This assay measures the concentration of thiamine diphosphate (TDP), the primary active form of vitamin B1. Approximately 90 percent of vitamin B1 present in whole blood is TDP. Thiamine and thiamine monophosphate, which comprise the remaining 10 percent, are not measured. Test developed and characteristics determined by [employer]. See Compliance Statement B: [employer]/CS Performed by [employer], [address] [place] [address] [email or web address], Piyush Price MD, Lab. Director Specimen Blood Performing Organization Address [facility] Phone Number [facility] [address] [place] [phone] CREATININE, URINE RANDOM (02/06/2019 9:01 AM CDT) CREAT U 63.2 mg/dL [facility] LABOR[facility]ORY Specimen Urine - URINE, CLEAN CATCH Performing Organization Address [facility] Phone Number [facility] CLIA: [id number], [address] [place] [address] VITAMIN D, 25-OH (02/06/2019 9:01 AM CDT) VIT D 25OH 60 25 - 80 ng/mL [facility] 25-Hydroxy D3 60.2 ng/mL [facility] 25-Hydroxy D2 <2.5 ng/mL [facility] Specimen Blood Narrative Performed At Test developed and characteristics determined by [facility] LABOR[facility]ORY SERVICES Laboratory Services. Performing Organization Address [facility] Phone Number [facility] CLIA: [id number], [address] [place] [address] [facility] N-TERMINAL PRO-BNP (02/06/2019 9:01 AM CDT) NT-proBNP 25 <=125 pg/mL [facility] LABOR[facility]ORY Specimen Blood Narrative Performed At Biotin has been reported to cause a negative [facility] LABORATORY bias, interpret results relative to patient's use of biotin. Performing Organization Address [facility] Phone Number [facility] CLIA: [id number], [address] [place] [address] HOMOCYSTEINE (02/06/2019 9:01 AM CDT) Homocysteine 9.5 6.6 - 14.8 umol/L [facility] Specimen Blood Performing Organization Address City/State/Zipcode Phone Number [facility] CLIA: [id number], [address] [place] [address] [phone] [facility] HIGH SENSITIVITY CRP (02/06/2019 9:01 AM CDT) HS CRP 4.75 (H) <0.74 mg/dL [facility] Specimen Blood Performing Organization Address City/State/Zipcode Phone Number [facility] CLIA: [id number], [address] [place] [address] [facility] URINE CULTURE (02/06/2019 9:01 AM CDT) URINE CULTURE No aerobic organisms [facility] LABORATORY isolated SERVICES Specimen Urine - URINE, CLEAN CATCH Performing Organization Address [facility] Phone Number [facility] CLIA: [id number], [address] [place] [address] [facility] MICROALBUMIN URINE (02/06/2019 9:01 AM CDT) CREAT U 62.6 mg/dL [facility] MICROALB U 3 0 - 45 ug/mL [facility] MICROAL/CR 542 0-3,500 ug/mmol [facility] LABOR[facility] creatinine SERVICES Specimen Urine - URINE, CLEAN CATCH Performing Organization Address [facility] Phone Number [facility] CLIA: [id number], [address] [place] [address] [facility] TOTAL IRON BINDING CAPACITY (02/06/2019 9:01 AM CDT) TIBC 314 250 - 410 ug/dL [facility] LAB[facility] % FE SAT 17 (L) 20 - 50 % [facility] Specimen Blood Performing Organization Address [facility] Phone Number [facility] CLIA: [id number], [address] [place] [address] FOLATE (02/06/2019 9:01 AM CDT) FOLATE SER 15.0 3.0 - 20.0 ng/mL [facility] SERVICES Specimen Blood Performing Organization Address City/[facility] [facility] Phone Number [facility] CLIA: [id number], [address] [place] [address] 667889 [facility] VITAMIN B12, LEVEL (02/06/2019 9:01 AM CDT) VIT B12 543 240 - 930 pg/mL [facility] Specimen Blood Narrative Performed At Biotin has been reported to cause a positive bias, interpret [facility] results relative to patient's use of biotin. Performing Organization Address [facility] Phone Number [facility] CLIA: [id number], [address] [place] [address] [facility] IRON (02/06/2019 9:01 AM CDT) IRON 52 50 - 160 ug/dL [facility] Specimen Blood Performing Organization Address City/State/Zipcode Phone Number [facility] CLIA: [id number], [address] [place] [address] FERRITIN SERUM (02/06/2019 9:01 AM CDT) FERRITIN 66.3 18.0 - 464.0 ng/mL [facility] Specimen Blood Narrative Performed At Biotin has been reported to cause a negative [facility] bias, interpret results relative to patient's use of biotin. Performing Organization Address [facility] Phone Number [facility] CLIA: [id number], [address] [place] [address] URIC ACID (02/06/2019 9:01 AM CDT) URIC ACID 7.2 3.6 - 8.0 mg/dL [facility] Specimen Blood Performing Organization Address [facility] Phone Number [facility] CLIA: [id number], [address] [place] [address] VITAMIN B6, PLASMA (02/06/2019 9:01 AM CDT) VIT B6 154.9 (H) 20.0 - 125.0 [facility] Comment: nmol/L INTERPRETIVE INFORMATION: Vitamin B6 (Pyridoxal 5-Phosphate) Pyridoxal 5'-phosphate measured in a specimen collected following an 8-hour or overnight fast accurately indicates vitamin B6 nutritional status. Non-fasting specimen concentration reflects recent vitamin intake. Test developed and characteristics determined by [facility]. See Compliance Statement B: [employer]/CS Performed by [facility], [address] [place] [address] [email or web address], Piyush Price MD, Lab. Director Specimen Blood Performing Organization Address [facility] Phone Number [facility] [address] [place] [address] ZINC, SERUM (02/06/2019 9:01 AM CDT) ZINC 52.1 (L) 60.0 - 120.0 [facility] Comment: ug/dL INTERPRETIVE INFORMATION: Zinc, Serum [...] absorption. Test developed and characteristics determined by [facility]. See Compliance Statement B: [employer]/ Performed by [facility], [address] [place] [address] [email or web address], Piyush Price MD, Lab. Director Specimen Blood Performing Organization Address City/State/Zipcode Phone Number [facility] [address] [place] [address] ZB MYOCARDIUM PERFUSION STRESS AND REST (01/06/2019 11:16 [...] Normal left ventricular function. Performing Organization Address [facility] Phone Number PACS/VR/DOSE ASSIGNMENT OF BENEFITS (01/05/2019 9:11 AM CDT) Specimen Performing Organization Address [facility] Phone Number [facility] PHARMACOLOGIC WORKSHEET (NUCLEAR EKG) (01/05/2019 12:01 AM CDT) Specimen Performing Organization Address City/State/Zipcode Phone Number HIM EXTERNAL PROVIDER RECORDS (12/24/2018 12:01 AM CDT) Specimen Performing Organization Address City/State/Zipcode Phone Number HIM from Last 3 Months Insurance Payer Benefit Plan / Subscriber ID Effective Phone Address Type Group Dates [facility] [id number] 2017-Lux [phone] [address] HMO HEALTH ReClaims HEALTH ReClaims [id number] [place] [address] Advance Directives Name Relationship Healthcare Agent Communication Relationship Keaton Nelson Spouse Primary healthcare agent [email or web address] Elisabeth Soliz Sibling First alternate healthcare [phone] agent (Mobile)
--- OUTSIDE RECORDS SUMMARY | 2019-05-11 01:15 | XMS REPORT | Summary of Care ---
:1970 Author Organization [facility] - Health Address [address] [place] [address] Care Team Providers Name Role Phone Lilibeth Andrade MD Primary Care Provider Libby Espinoza RN Unavailable Unavailable Al Valiente MD Unavailable Junito Quezada MD Unavailable Karena Anand COLD ROLL OPERATOR Unavailable Unavailable Tito Kirkpatrick Unavailable Encounter Details Date Type Department Care Team Description 03/12/2019 Orders Only [facility] Doctor Unassigned, No [address] [facility] [address] [address] [place] [address] Allergies Active Allergy Reactions Severity Noted Date [...] times daily as needed for Constipation. 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 pectoris [place] (myocardial [...] Treatment Date Type Specialty Care Team Description 03/24/2019 Office Visit Gastroenterology Ioana Mccarty MD [address] [place] [address] [phone] 03/26/2019 Nurse Visit Anti-coagulation Clinic Nurse, Christen Anticoag 03/29/2019 Hospital Encounter Surgery Dagoberto Luna MD [address], [place] [address] [phone] 03/29/2019 Surgery Surgery Dagoberto Luna LUMBAR EPIDURAL MD Tania STEROID INJECTION [address], [place] [address] [phone] 04/01/2019 Office Visit Internal Medicine Lilibeth Andrade MD [address] [facility] [address] [place] [address] 939705 04/12/2019 Hospital Encounter Surgery Dagoberto Luna MD [id number], [place] [phone] 04/12/2019 Surgery Surgery Dagoberto Luna LUMBAR EPIDURAL MD Tania STEROID INJECTION [address] [place] [address] 04/26/2019 Hospital Encounter Surgery Dagoberto Luna MD [address], [place] [phone] 04/26/2019 Surgery Surgery Dagoberto Luna LUMBAR EPIDURAL MD Tania STEROID INJECTION [address], [place] [phone] 04/27/2019 Office Visit Cardiology Robert Adkins MD [id number] [place], [place] 8[address] 05/04/2019 Office Visit Cardiology Al Valiente MD [address] [place] [address] [address] [place] [address] [phone] 05/13/2019 Office Visit Internal Medicine Lilibeth Andrade MD [address] [facility] [address] [place] [address] 663935 05/27/2019 Appointment Cardiac Outpt-Simi, Electrophysiology Pacemaker/Icd 06/01/2019 Office Visit Internal Medicine Lilibeth Andrade MD [address] [facility] [address] [place] [address] [phone] 07/06/2019 Office Visit Internal Medicine Lilibeth Andrade MD [address] [place] [address] Dr [address] [place], [place] 1556[address] 07/13/2019 Office Visit Endocrinology Diabetes Zhen Jones MD & Metabolism [address] [place] [address] [phone] 10/27/2019 Office Visit Pulmonary Disease Max Aguiar [address] [place] [address] Dr [address] [place], [place] 8045[address] 12/08/2019 Office Visit Ophthalmology Yariel Tineo MD [address] [place] [address] [phone] Health Maintenance Due Date Last Done Comments [...] of this encounter Implants Implanted Type Area Special Education Teacher Device Shelf Model / Identifier Expiration Serial / Date Lot Prolene Mesh MESH Right: Ethicon 12/20/2020 PMSK / Implanted: Qty: 1 on 07/04/2016 by Alfonso Martinez MD at [facility] [employer] PMSK / [id number] Stent-06/24/2016 Implanted: 06/24/2016 (Quantity not on file) documented as of this encounter Procedures Procedure Name Priority Date/Time Associated Diagnosis Comments MEDICAL Routine 03/12/2019 12:01 AM CDT RELEASE/CLEARANCE FORMS documented in this encounter Results Not on filedocumented in this encounter Insurance Payer Benefit Plan / Subscriber ID Effective Phone Address Type Group Dates [facility] [id number] 2017-Lux [phone] [address] HMO [phone] [place] [address] documented as of this encounter Advance Directives Name Relationship Healthcare Agent Communication Relationship Keaton Thomasjanae Spouse Primary healthcare agent [email or web address] Elisabeth Soliz Sibling First alternate healthcare [phone] agent (Mobile)
--- OUTSIDE RECORDS SUMMARY | 2019-05-11 01:16 | XMS REPORT | Summary of Care ---
:1970 Author Organization [facility] Address [address] [place] [address] Care Team Providers Name Role Phone Lilibeth Andrade MD Primary Care Provider Libby Espinoza RN Unavailable Unavailable Al Valiente MD Unavailable Junito Quezada MD Unavailable Karena Anand SCHOOL BUS AIDE Unavailable Unavailable Casimiro Tito Unavailable Reason for Visit Reason Comments Refill Request Encounter Details Date Type Department Care Team Description 03/11/2019 Refill [facility] Pediatric and Lilibeth Andrade, Refill Request Adult Primary Care- MD Lewis [address] [place] [address] [address] [facility], [address] [place] [address] [place] [address] Allergies Active Allergy Reactions Severity [...] times daily as needed for Constipation. Insulin [place], Use as directed, 400 Each 1 09/19/2017 [...] deficiency anemia due to chronic blood loss Ranolazine 1,000 mg Take 1 tablet by [...] Take 1 tablet by 30 tablet 3 03/12/2019 Active tabletIndications: mouth every 6 (six) Non-intractable hours as needed for vomiting with Nausea and Vomiting nausea, unspecified (N/V). vomiting type ARIPiprazole 10 mg Take 1 tablet [...] Overview: Added automatically from request for surgery [id number] Syncope 04/01/2017 Chest pain, rule out acute [...] Chest pain 06/12/2016 Coronary artery disease involving mentasta coronary artery of [place]asta heart 06/12 with angina pectoris [place] (myocardial infarction) 06/12/2016 Type 2 diabetes mellitus [...] Office Visit Gastroenterology Ioana Mccarty MD [address] [place], [place] 605643 03/26/2019 Nurse Visit Anti-coagulation Clinic Nurse, Christen Brown 03/29/2019 Hospital Encounter Surgery Dagoberto Luna MD [id number] [place] [phone] 03/29/2019 Surgery Surgery Dagoberto Luna LUMBAR EPIDURAL MD Tania STEROID INJECTION [address] [place] [address] [phone] 04/01/2019 Office Visit Internal Medicine Lilibeth Andrade MD [address] [place] [address] [phone] 04/12/2019 Hospital Encounter Surgery Dagoberto Luna MD [address] [place] [phone] 04/12/2019 Surgery Surgery Dagoberto Luna LUMBAR EPIDURAL MD Tania STEROID INJECTION [address], [place] [address] [phone] 04/26/2019 Hospital Encounter Surgery Dagoberto Luna MD [address] [place] [address] [phone] 04/26/2019 Surgery Surgery Dagoberto Luna LUMBAR EPIDURAL MD Tania STEROID INJECTION [address] [place] [address] [phone] 04/27/2019 Office Visit Cardiology Robert Adkins MD [address] [facility] [id number] [place] [address] [phone] 05/04/2019 Office Visit Cardiology Al Valiente MD [address] [facility] [address] [place], [place] [address] 05/13/2019 Office Visit Internal Medicine Lilibeth Andrade MD [address] [facility] [address] [place] [address] [phone] 05/27/2019 Appointment Cardiac Outpt-Simi, Electrophysiology Pacemaker/Icd 06/01/2019 Office Visit Internal Medicine Lilibeth Andrade MD [address] [place] [address] [address] [place] [address] [phone] 07/06/2019 Office Visit Internal Medicine Lilibeth Andrade MD [address] [place] [address] Dr [address] [place] [address] [phone] 07/13/2019 Office Visit Endocrinology Diabetes Zhen Jones MD & Metabolism [address] [place], [place] [address] 10/27/2019 Office Visit Pulmonary Disease Max Aguiar [address] [place] [address] Dr [address] [place] [address] 872205 12/08/2019 Office Visit Ophthalmology Yariel Tineo MD [address] [place] [address] Health Maintenance Due Date Last Done [...] of this encounter Implants Implanted Type Area Electrical Helper Device Shelf Model / Identifier Expiration Serial / Date Lot Prolene Mesh MESH Right: Ethicon 12/20/2020 PMSK / Implanted: Qty: 1 on 07/04/2016 by Alfonso Martinez MD at [facility] [employer] PMSK / [id number] Stent-06/24/2016 Implanted: 06/24/2016 (Quantity not on file) documented as of this encounter Results Not on filedocumented in this encounter Visit Diagnoses Diagnosis Non-intractable vomiting with nausea, unspecified vomiting type documented in this encounter Insurance Payer Benefit Plan / Subscriber ID Effective Phone Address Type Group Dates [facility] [id number] 2017-Lux [phone] [address] HMO HEALTH [employer] HEALTH [employer] [phone] [place] [address] documented as of this encounter Advance Directives Name Relationship Healthcare Agent Communication Relationship Keaton Nelson Spouse Primary healthcare agent [email or web address] Elisabeth Soliz Sibling First alternate healthcare [phone] agent (Mobile)
--- OUTSIDE RECORDS SUMMARY | 2019-05-11 01:18 | XMS REPORT | Clinical Summary ---
:1970 Author Organization [facility] Address [address] [place] [id number] Care Team Providers Name Role Phone Lilibeth Andrade MD Primary Care Provider Libby Espinoza RN Unavailable Unavailable Al Valiente MD Unavailable Junito Quezada MD Unavailable Karena Anand [employer] DRILL OPERATOR Unavailable Unavailable Tito Kirkpatrick Unavailable Allergies Active [...] (two) times daily as needed for Constipation. Additional information Patient taking differently: 100 mg Oral DAILY, Reported on 07/15/2016 3:40 PM Insulin [place], Disposable, Use as directed, QID, 400 Each 1 09/19/2017 Active (RELION PEN NEEDLES) 32 gauge DX:E11.9 x " Ndle Diclofenac Sodium 1 % Take 2-4 grams three 100 g 3 03/03/2018 Active gelIndications: Chronic back times a day as needed pain greater than 3 months for pain duration pyridoxine HCl, vitamin B6, Take by mouth. 0 Active (VITAMIN B-6 ORAL) nitroglycerin (NITROSTAT) 0.4 Place 1 tablet under the 1 Bottle 1 2017 Active mg sublingual tablet tongue every 5 (five) minutes as needed for Chest pain. magnesium oxide 400 mg Take 1 tablet by mouth 90 tablet 3 04/25/2018 Active magnesium TabIndications: Low daily. magnesium level Additional information Patient taking differently: 2 tablet Oral DAILY, Reported on 06/02/2018 2: 38 PM foLIC acid 1 mg Take 1 tablet by mouth 90 tablet 3 05/27/2018 Active tabletIndications: High daily. plasma homocystine methocarbamol 750 mg tablet Take 750 mg by mouth 2 0 Active (two) times daily. buprenorphine-naloxone Place 8 mg under the 0 Active (SUBOXONE) 8-2 mg sublingual tongue every 12 film (twelve) hours as needed for Pain (scale 7-10). clopidogrel (PLAVIX) 75 mg Take 1 tablet by mouth 90 tablet 3 07/20/2018 Active tablet daily. atorvastatin (LIPITOR) 40 mg Take 1 tablet by mouth 90 tablet 3 10/13/2018 Active tablet at bedtime. furosemide (LASIX) 80 mg Take 80 mg by mouth 0 Active tablet every morning and evening. aMILoride 5 mg Take 1 tablet by mouth 60 tablet 2 11/02/2018 Active tabletIndications: 2 (two) times daily. Hypokalemia warfarin 10 mg tablet Take as directed by 60 tablet 3 10/30/2018 Active [facility] based on INR results. warfarin 7.5 mg tablet Take as directed by 90 tablet 3 10/30/2018 Active [facility] based on INR results. ferrous sulfate (IRON) 325 mg Take 1 tablet by mouth 270 tablet 3 2018 Active (65 mg iron) 3 (three) times daily tabletIndications: Iron with meals. deficiency anemia due to chronic blood loss Ranolazine 1,000 mg tablet Take 1 tablet by mouth 60 tablet 4 12/09/2018 Active 2 (two) times daily. cholestyramine 4 gram Take 1 Packet by mouth 1 Can 1 12/09/2018 Active powderIndications: Other 3 (three) times daily fatigue with meals. pantoprazole 40 mg EC tablet Take 1 tablet by mouth 90 tablet 3 12/18/2018 Active 2 (two) times daily. testosterone (ANDROGEL) 20.25 Apply 2 Pumps to 75 g 3 01/05/2019 Active mg/1.25 gram (1.62 %) gel area(s) daily. pumpIndications: Low testosterone Cholecalciferol, Vitamin D3, Take by mouth. 0 Active (VITAMIN D3) 2,000 unit tablet hydrocortisone 2.5 % Apply to affected 30 g 3 01/26/2019 Active creamIndications: Seborrheic area(s) 2 (two) times dermatitis daily. polyethylene glycol (MIRALAX) Take 17 g by mouth 238 g 3 01/26/2019 Active 17 gram/dose daily. powderIndications: Constipation, unspecified constipation type cyanocobalamin (VITAMIN B-12) 1 mL by Intramuscular 12 mL 3 02/23/2019 Active 1,000 mcg/mL route every 2 (two) injectionIndications: Vitamin weeks. B12 deficiency allopurinol 300 mg Take 1 tablet by mouth 90 tablet 3 02/23/2019 Active tabletIndications: Uric acid daily. stone in urine metformin ER 500 mg 24 hr Take 1 tablet by mouth 90 tablet 3 02/24/2019 Active tabletIndications: Type 2 daily with breakfast. diabetes mellitus with cardiac complication dulaglutide (TRULICITY) 0.75 inject 0.75 mg under 4 Syringe 4 02/24/2019 Active mg/0.5 mL PnIjIndications: the skin weekly. Type 2 diabetes mellitus with cardiac complication KCL 20 mEq tabletIndications: Take 3 tablets by mouth 180 tablet 2 2018 Active Acute on chronic diastolic 3 (three) times daily. congestive heart failure, Hypopotassemia proMETHazine 25 mg Take 1 tablet by mouth 30 tablet 3 03/12/2019 Active tabletIndications: every 6 (six) hours as Non-intractable vomiting with needed for Nausea and nausea, unspecified vomiting Vomiting (N/V). type metOLazone 2.5 mg Once daily PRN for 30 tablet 0 04/01/2019 Active tabletIndications: Vitamin weight gain > 3 lbs B12 deficiency clonazePAM 1 mg Take 1 pill PO in the 120 tablet 1 04/08/2019 Active tabletIndications: AM, 1 PO in the Generalized anxiety disorder, afternoon, 1 pill PO in Panic disorder without the evening. May take agoraphobia additional 1 pill as needed acute anxiety. ARIPiprazole 10 mg Take 1 tablet by mouth 30 tablet 1 04/08/2019 Active tabletIndications: daily. Generalized anxiety disorder, Panic disorder without agoraphobia, Severe episode of recurrent major depressive disorder, without psychotic features desvenlafaxine succinate Take 2 tablets by mouth 60 tablet 1 04/08/2019 Active (PRISTIQ) 100 mg 24 hr daily. 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 CA (myocardial infarction) 06/12/2016 Type 2 diabetes mellitus [...] Encounters Date Type Specialty Care Team Description 04/06/2019 Office Visit Cardiology Robert Adkins MD CHF (congestive heart failure) (Primary Dx) 04/06/2019 Refill Endocrinology Diabetes Zhen Jones MD Refill Request & Metabolism 04/05/2019 Quality Control Microbiology Supervisor Visit Phlebotomy Robert Adkins MD CHF (congestive 2, Adc Lab heart failure) 04/05/2019 Refill Endocrinology Zhen Guillaume MD Refill Request & Metabolism 04/01/2019 Telephone Cardiology Robert Adkins Assessment MD Namita 04/01/2019 Refill Cardiology Al Valiente Refill Request 03/29/2019 Surgery Surgery Dagoberto Luna LUMBAR EPIDURAL MD Tania STEROID INJECTION 03/29/2019 Anesthesia Event Surgery Genaro Glasgow CRNA 03/29/2019 Hospital Surgery Dagoberto Luna Encounter MD Tania 03/24/2019 Office Visit Gastroenterology Ioana Mccarty MD 03/24/2019 Telephone Cardiology Robert Adkins Blood Pressure MD Namita 03/16/2019 Telephone Cardiology Robert Adkins Lab Results; LAB MD Namita WORK 03/12/2019 Quality Control Microbiology Supervisor Visit Phlebotomy Robert Adkins MD CHF (congestive 2, Adc Lab heart failure) 03/12/2019 Orders Only Doctor Unassigned, [place] 03/12/2019 Telephone Cardiology Robert Adkins Pre-op Clearance MD Namita ([facility] [place]) 03/11/2019 Refill Internal Medicine Lupe Refill Request Lilibeth Payne MD 03/10/2019 Refill Internal Medicine [place] Refill Request Lilibeth Payne MD 03/09/2019 Quality Control Microbiology Supervisor Visit Clinical Medical Harry Lunajit Radiculopathy , Laboratory MD Tania unspecified spinal 1, Adc Lab region (Primary Dx) 03/09/2019 Quality Control Microbiology Supervisor Visit Phlebotomy Robert Adkins Hypopotassemia MD Namita 2, Adc Lab 03/09/2019 Orders Only Doctor Unassigned, [place] 03/03/2019 Telephone Cardiology Robert Adkins LAB WORK; Lab MD Namita Results; Medication Dose Change 03/02/2019 Quality Control Microbiology Supervisor Visit Phlebotomy Robert Adkins Acute on chronic diastolic congestive heart failure; MD Namita Hypopotassemia 2, Adc Lab 03/02/2019 Orders Only Doctor Unassigned, [place] 03/01/2019 [facility] Encounter Electrophysiology Simi, Remote Device Check At Home - 02/26/2019 Nurse Visit Anti-coagulation Clinic Nat, Anticoagulation management encounter; [place] Other pulmonary embolism without acute cor pulmonale, unspecified chronicity; MD Fei ST elevation myocardial infarction involving right coronary artery Nurse, [place]en Anticoag 02/24/2019 Quality Control Microbiology Supervisor Visit Clinical Medical Zhen Jones MD Secondary male Laboratory 1, Adc Lab hypogonadism 02/24/2019 Office Visit Endocrinology Diabetes Zhen Jones MD 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); & Metabolism Secondary male hypogonadism; Dyslipidemia; Essential hypertension; High serum aldosterone 02/24/2019 Orders Only Doctor Unassigned, [place] 02/24/2019 Telephone Cardiology Robert Adkins Results MD Namita 02/23/2019 Office Visit Internal Medicine Lu[place], Other fatigue ( Primary Dx); Lilibeth Payne MD Vitamin B12 deficiency; Uric acid stone in urine; Chest pain, unspecified type; Skin problem 02/23/2019 Quality Control Microbiology Supervisor Visit Phlebotomy Silvia Shaffer MD 2, Adc Lab 02/23/2019 Orders Only Doctor Unassigned, [place] 02/23/2019 Refill Internal Medicine [place], Refill Request Lilibeth Payne MD 02/19/2019 Telephone Cardiology Robert Adkins LAB WORK; Lab MD Namita Results 02/14/2019 Telephone Cardiology Sundar Novak, Abnormal Lab MBBS 02/13/2019 Emergency Emergency Medicine Amisha Toth Weakness (Primary J, DO Dx) 02/12/2019 Quality Control Microbiology Supervisor Visit Phlebotomy Andrade, Hypopotassemia Lilibeth Payne MD 2, Adc Lab 02/12/2019 Orders Only Doctor Unassigned, [place] 02/09/2019 Office Visit Cardiology Robert Adkins Hypopotassemia (Primary Dx); MD Namita Chronic diastolic CHF (congestive heart failure); Coronary artery disease of [place] artery of [place] heart with stable angina pectoris 02/09/2019 Emergency Emergency Medicine [place], [place] Fatigue, unspecified type (Primary Dx); MD Tania Hypokalemia; Uncontrolled type 2 diabetes mellitus with hyperglycemia 02/09/2019 Telephone Cardiology Robret Adkins Assessment MD Namita 02/08/2019 Telephone Cardiology Sundar Novak, Abnormal Lab MBBS 02/06/2019 Quality Control Microbiology Supervisor Visit Clinical Medical Lu[place], Hypouricemia ( Primary Dx); Laboratory Lilibeth Payne MD Need for prophylactic chemotherapy; 1, Adc Lab Chronic diastolic congestive heart failure 02/06/2019 Orders Only Doctor Unassigned, [place] 02/05/2019 Telephone Cardiology Robert Adkins Pre-Visit Planning; MD Namita Appointment 01/29/2019 Nurse Visit Anti-coagulation Clinic [place], Other pulmonary embolism without acute cor pulmonale, unspecified chronicity; MD Osmar Anticoagulation management encounter Nurse, [facility] Anticoag 01/26/2019 Office Visit Internal Medicine Lu[place], Seborrheic dermatitis (Primary Dx); Lilibeth Payne MD Constipation, unspecified constipation type; Other parts counterman (current) drug therapy; Iron deficiency anemia due to chronic blood loss; Sore throat; Ear ache; Frequent headaches; Nausea 01/09/2019 Telephone Cardiology Robert Adkins Results MD Namita 01/06/2019 [facility] Radiology Robert Adkins Encounter MD Namita 01/06/2019 [facility] Radiology Robert Adkins Encounter MD Namita from Last 3 Months Immunizations [...] Packs/Day Years Used Date Former Smoker Cigarettes 07 22 Quit: 06/26/2014 Smokeless Tobacco: Never Used Tobacco [...] Sign Reading Time Taken Comments Blood Pressure 119/83 04/08/2019 12:30 PM CDT Pulse 83 04/08/2019 12:30 PM CDT Temperature 37 C (98.6 F) 03/29/2019 8:44 AM CDT Respiratory Rate 18 04/08/2019 12:30 PM CDT Oxygen Saturation 97% 03/29/2019 8:45 AM CDT Inhaled Oxygen Concentration - - Weight 129.7 kg (286 lb) 04/08/2019 12:30 PM CDT Height 177.8 cm (5' 10") 04/06/2019 1:31 PM CDT Body Mass Index 41.04 04/06/2019 1:31 PM CDT Plan of Treatment Date Type Specialty Care Team Description 04/12/2019 Hospital Encounter Surgery Dagoberto Luna MD [id number] [place] [address] [phone] 04/12/2019 Surgery Surgery Dagoberto Luna LUMBAR EPIDURAL MD Tania STEROID INJECTION [id number], [place] [address] [phone] 04/20/2019 Appointment Radiology Robert Adkins MD [address] [facility] [id number] [place], [place] [address] 04/20/2019 Appointment Radiology Robert Adkins MD [id number] [place], [place] [phone] 04/26/2019 Hospital Encounter Surgery Dagoberto Luna MD [id number] [place] [address] [phone] 04/26/2019 Surgery Surgery Dagoberto Luna LUMBAR EPIDURAL MD Tania STEROID INJECTION [id number] [place] [phone] 05/04/2019 Office Visit Cardiology Al Valiente MD [address] [place] [address] [place] [phone] 05/07/2019 Nurse Visit Anti-coagulation Clinic Nurse, Vtc Anticoag 05/13/2019 Office Visit Internal Medicine Lilibeth Andrade MD [address] [place] [address] Dr [address] [place] [address] [phone] 05/27/2019 Appointment Cardiac Outpt-Simi, Electrophysiology Pacemaker/Icd 06/01/2019 Office Visit Internal Medicine Lilibeth Andrade MD [address] [place] [address] Dr Lewis [address] [place] [phone] 07/06/2019 Office Visit Internal Medicine Lilibeth Andrade MD [address] [place] [address] Dr Lewis [address] [place] [address] 07/13/2019 Office Visit Endocrinology Diabetes Zhen Jones MD & Metabolism [address] [place] [address] [phone] 09/28/2019 Office Visit Cardiology Robert Adkins MD [id number] [place] [address] [phone] 10/27/2019 Office Visit Pulmonary Disease Max Aguiar [address] [place] [address] Dr Lewis [address] [place] [address] [phone] 12/08/2019 Office Visit Ophthalmology Yariel Tineo MD [address] [place] [address] [phone] Health Maintenance Due Date Last Done Comments Zoster Recombinant Vaccine 2019 (SHINGRIX) (1 of 2) LDL-C 07/28/2019 07/28/2018, 01/11/2018, 12/31/2017, Additional history exists HgA1C 08/25/2019 02/24/2019, 07/28/2018, 03/30/2018, Additional history exists EYE EXAM 11/20/2019 11/19/2018, 11/13/2017 URINE MICROALBUMIN 02/07/2020 02/06/2019, 01/19/2018, 08/20/2016 PNEUMOCOCCAL 0-64 YEARS 02/24/2020 Postponed from COMBINED SERIES (1 of 1 - 1975 (Patient PPSV23) Refused) FOOT EXAM 02/25/2020 02/24/2019, 02/24/2019, 09/22/2018, Additional history exists INFLUENZA VACCINE (#1) 2020 Postponed from 02/21/2019 (Patient Refused) CREATININE (SERUM) 03/12/2020 03/12/2019, 03/09/2019, 03/02/2019, Additional history exists COLONOSCOPY 04/22/2027 04/22/2017 DTaP,Tdap,and Td Vaccines 06/26/2027 06/26/2017, 03/19/2015 Postponed from (1 - Tdap) 06/27/2017 (Not Indicated) Implants Implanted Type Area Histology Teacher Device Shelf Model / Identifier Expiration Serial / Date Lot Prolene Mesh MESH Right: Ethicon 12/20/2020 PMSK / Implanted: Qty: 1 on 07/04/2016 by Alfonso Martinez MD at [facility] [employer] PMSK / [id number] Stent-06/24/2016 Implanted: 06/24/2016 (Quantity not on file) Procedures Procedure Name Priority Date/Time Associated Diagnosis Comments N-TERMINAL PRO-BNP Routine 04/05/2019 Chronic diastolic Results for 8:24 AM CDT CHF (congestive this procedure heart failure) are in the results section. FL TIME Routine 03/29/2019 Pain management Results for (NON-REPORTABLE) 8:20 AM CDT this procedure are in the results section. LUMBAR EPIDURAL Level 5 03/29/2019 SAME STEROID INJECTION (greater than 7:56 AM CDT 5 days) POCT GLUCOSE(AGE Routine 03/29/2019 Results for >30DAYS) 7:10 AM CDT this procedure are in the results section. POCT GLUCOSE Routine 03/29/2019 Results for (AUTOMATED) 7:08 AM CDT this procedure are in the results section. DAY SURGERY - ADC Routine 03/29/2019 12:01 AM CDT MEDICAL Routine 03/18/2019 RELEASE/CLEARANCE 12:01 AM CDT FORMS MAGNESIUM Routine 03/12/2019 Chronic diastolic Results for 8:30 AM CDT CHF (congestive this procedure heart failure) are in the results section. N-TERMINAL PRO-BNP Routine 03/12/2019 Chronic diastolic Results for 8:30 AM CDT CHF (congestive this procedure heart failure) are in the results section. BASIC METABOLIC PANEL Routine 03/12/2019 Chronic diastolic Results for (NA, K, CL, CO2, 8:30 AM CDT CHF (congestive this procedure GLUCOSE, BUN, heart failure) are in the CREATININE, CA) results section. MEDICAL Routine 03/12/2019 RELEASE/CLEARANCE 12:01 AM CDT FORMS AGREEMENTS Routine 03/12/2019 AUTHORIZATIONS AND 12:01 AM CDT IRREVOCABLE ASSIGNMENTS (FORM 2001) CBC WITH DIFFERENTIAL Routine 03/09/2019 Radiculopathy, Results for 11:39 AM CDT unspecified spinal this procedure region are in the results section. CBC WITH DIFF Routine 03/09/2019 Radiculopathy, Results for 11:39 AM CDT unspecified spinal this procedure region are in the results section. BASIC METABOLIC PANEL Routine 03/09/2019 Hypopotassemia Results for (NA, K, CL, CO2, 11:01 AM CDT this procedure GLUCOSE, BUN, are in the CREATININE, CA) results section. PHYSICIAN ORDERS Routine 03/09/2019 12:01 AM CDT AGREEMENTS Routine 03/09/2019 AUTHORIZATIONS AND 12:01 AM CDT IRREVOCABLE ASSIGNMENTS (FORM 2001) BASIC METABOLIC PANEL Routine 03/02/2019 Acute on chronic Results for (NA, K, CL, CO2, 10:26 AM CDT diastolic congestive this procedure GLUCOSE, BUN, heart failure are in the CREATININE, CA) Hypopotassemia results section. AGREEMENTS Routine 03/02/2019 AUTHORIZATIONS AND 12:01 AM CDT IRREVOCABLE ASSIGNMENTS (FORM 2001) POCT Routine 02/26/2019 Other pulmonary Results for PT/INR(COAGUCHEK) embolism without this procedure acute cor pulmonale, are in the unspecified results chronicity section. TESTOSTERONE Routine 02/24/2019 Secondary male Results for 4:17 PM CDT hypogonadism this procedure are in the results section. PROSTATIC SPECIFIC Add-on 02/24/2019 Secondary male Results for ANTIGEN SCREEN 4:17 PM CDT hypogonadism this procedure are in the results section. PATIENT QUESTIONNAIRE Routine 02/24/2019 12:01 AM CDT POCT HEMOGLOBIN A1C Routine 02/24/2019 Type 2 diabetes Results for TEST mellitus with this procedure cardiac complication are in the results section. BASIC METABOLIC PANEL Routine 02/23/2019 Hypopotassemia Results for (NA, K, CL, CO2, 9:49 AM CDT this procedure GLUCOSE, BUN, are in the CREATININE, CA) results section. MAGNESIUM Routine 02/23/2019 Hypopotassemia Results for 9:49 AM CDT this procedure are in the results section. AGREEMENTS Routine 02/23/2019 AUTHORIZATIONS AND 12:01 AM CDT IRREVOCABLE ASSIGNMENTS (FORM 2000) CBC WITH DIFFERENTIAL STAT 02/13/2019 Weakness Results for 2:17 AM CDT this procedure are in the results section. MAGNESIUM STAT 02/13/2019 Weakness Results for 2:17 AM CDT this procedure are in the results section. TROPONIN I STAT 02/13/2019 Weakness Results for 2:17 AM CDT this procedure are in the results section. URINALYSIS STAT 02/13/2019 Weakness Results for 2:17 AM CDT this procedure are in the results section. BASIC METABOLIC PANEL STAT 02/13/2019 Weakness Results for (NA, K, CL, CO2, 2:17 AM CDT this procedure GLUCOSE, BUN, are in the CREATININE, CA) results section. CBC WITH DIFF Routine 02/13/2019 Weakness Results for 2:17 AM CDT this procedure are in the results section. EKG-12 LEAD STAT 02/13/2019 2:14 AM CDT EKG-12 LEAD Routine 02/13/2019 1:58 AM CDT NOTICE OF PRIVACY Routine 02/13/2019 PRACTICES 1:37 AM CDT CONSENT/REFUSAL FOR Routine 02/13/2019 DIAGNOSIS AND 1:36 AM CDT TREATMENT EMERGENCY SERVICES Routine 02/13/2019 AGREEMENTS AND 12:01 AM CDT AUTHORIZATIONS MAGNESIUM Routine 02/12/2019 Hypopotassemia Results for 8:14 AM CDT this procedure are in the results section. BASIC METABOLIC PANEL Routine 02/12/2019 Hypopotassemia Results for (NA, K, CL, CO2, 8:14 AM CDT this procedure GLUCOSE, BUN, are in the CREATININE, CA) results section. AGREEMENTS Routine 02/12/2019 AUTHORIZATIONS AND 12:01 AM CDT IRREVOCABLE ASSIGNMENTS (FORM 2001) CBC WITH DIFFERENTIAL STAT 02/09/2019 Fatigue, unspecified Results for 9:51 AM CDT type this procedure are in the results section. MAGNESIUM STAT 02/09/2019 Fatigue, unspecified Results for 9:51 AM CDT type this procedure are in the results section. COMP. METABOLIC PANEL STAT 02/09/2019 Fatigue, unspecified Results for (68120) 9:51 AM CDT type this procedure are in the results section. CBC WITH DIFF STAT 02/09/2019 Fatigue, unspecified Results for 9:51 AM CDT type this procedure are in the results section. EKG-12 LEAD Routine 02/09/2019 9:47 AM CDT EKG-12 LEAD Routine 02/09/2019 9:41 AM CDT CONSENT/REFUSAL FOR Routine 02/09/2019 DIAGNOSIS AND 9:27 AM CDT TREATMENT PHYSICIAN ORDERS Routine 02/09/2019 12:01 AM CDT EMERGENCY SERVICES Routine 02/09/2019 AGREEMENTS AND 12:01 AM CDT AUTHORIZATIONS CBC WITH DIFFERENTIAL Routine 02/06/2019 Hypouricemia Results for 9:01 AM CDT Need for this procedure prophylactic are in the chemotherapy results section. MAGNESIUM Routine 02/06/2019 Chronic diastolic Results for 9:01 AM CDT congestive heart this procedure failure are in the results section. CREATININE, URINE Routine 02/06/2019 Hypouricemia Results for RANDOM 9:01 AM CDT Need for this procedure prophylactic are in the chemotherapy results section. MICROALBUMIN URINE Routine 02/06/2019 Hypouricemia Results for 9:01 AM CDT Need for this procedure prophylactic are in the chemotherapy results section. URINE CULTURE Routine 02/06/2019 Hypouricemia Results for 9:01 AM CDT Need for this procedure prophylactic are in the chemotherapy results section. URINALYSIS Routine 02/06/2019 Hypouricemia Results for 9:01 AM CDT Need for this procedure prophylactic are in the chemotherapy results section. N-TERMINAL PRO-BNP Routine 02/06/2019 Hypouricemia Results for 9:01 AM CDT Need for this procedure prophylactic are in the chemotherapy results section. URIC ACID Routine 02/06/2019 Hypouricemia Results for 9:01 AM CDT Need for this procedure prophylactic are in the chemotherapy results section. COMP. METABOLIC PANEL Routine 02/06/2019 Hypouricemia Results for ([id number]) 9:01 AM CDT Need for this procedure prophylactic are in the chemotherapy results section. CBC WITH DIFF Routine 02/06/2019 Hypouricemia Results for 9:01 AM CDT Need for this procedure prophylactic are in the chemotherapy results section. TOTAL IRON BINDING Routine 02/06/2019 Iron deficiency Results for CAPACITY 9:01 AM CDT anemia due to this procedure chronic blood loss are in the results section. ZINC, SERUM Routine 02/06/2019 Other parts counterman Results for 9:01 AM CDT (current) drug this procedure therapy are in the results section. HIGH SENSITIVITY CRP Routine 02/06/2019 Other parts counterman Results for 9:01 AM CDT (current) drug this procedure therapy are in the results section. HOMOCYSTEINE Routine 02/06/2019 Other custodial Results for 9:01 AM CDT (current) drug this procedure therapy are in the results section. FOLATE Routine 02/06/2019 Other custodial Results for 9:01 AM CDT (current) drug this procedure therapy are in the results section. VITAMIN D, 25-OH Routine 02/06/2019 Other custodial Results for 9:01 AM CDT (current) drug this procedure therapy are in the results section. VITAMIN B12, LEVEL Routine 02/06/2019 Other parts counterman Results for 9:01 AM CDT (current) drug this procedure therapy are in the results section. VITAMIN B6, PLASMA Routine 02/06/2019 Other parts counterman Results for 9:01 AM CDT (current) drug this procedure therapy are in the results section. VITAMIN B1 Routine 02/06/2019 Other custodial Results for (THIAMINE), WHOLE 9:01 AM CDT (current) drug this procedure BLOOD therapy are in the results section. FERRITIN SERUM Add-on 02/06/2019 Iron deficiency Results for 9:01 AM CDT this procedure are in the results section. IRON Add-on 02/06/2019 Iron deficiency Results for 9:01 AM CDT this procedure are in the results section. NOTICE OF PRIVACY Routine 02/06/2019 PRACTICES 8:26 AM CDT CONSENT/REFUSAL FOR Routine 02/06/2019 DIAGNOSIS AND 8:25 AM CDT TREATMENT AGREEMENTS Routine 02/06/2019 AUTHORIZATIONS AND 12:01 AM CDT IRREVOCABLE ASSIGNMENTS (FORM 2001) POCT Routine 01/29/2019 Other pulmonary Results for PT/INR(COAGUCHEK) embolism without this procedure acute cor pulmonale, are in the unspecified results chronicity section. NM MYOCARDIUM Routine 01/06/2019 Coronary artery Results for PERFUSION STRESS AND 11:16 AM CDT disease involving this procedure REST [place] coronary are in the artery of [place] results heart with angina section. pectoris from Last 3 Months Results N-TERMINAL PRO-BNP (04/05/2019 8:24 AM CDT)Only the most recent of3 resultswithin the time period is included. NT-proBNP 33 <=125 pg/mL [facility] Specimen Blood - ARM, RIGHT Narrative Performed At Biotin has been reported to cause a negative [facility] bias, interpret results relative to patient's use of biotin. Performing Organization Address City/State/Zipcode Phone Number [facility] CLIA: [id number], [address] [place] [address] [facility] [place] TIME (NON-REPORTABLE) (03/29/2019 8:20 AM CDT) Specimen Narrative Performed At These images do not require a Radiology diagnostic report. PACS Performing Organization Address City/State/Zipcode Phone Number PACS POCT GLUCOSE(AGE >30DAYS) (03/29/2019 7:10 AM CDT) POCT Glu (age>30days) 175 (A) 70 - 110 mg/dL Specimen Blood - VENOUS POCT GLUCOSE (AUTOMATED) (03/29/2019 7:08 AM CDT) POCT GLU 175 (H) 70 - 110 mg/dL [facility] Specimen Blood Performing Organization Address City/State/Zipcode Phone Number [facility] CLIA: [id number], [address] [place] [address] [facility] DAY SURGERY - ADC (03/29/2019 12:01 AM CDT) Specimen Performing Organization Address City/State/Zipcode Phone Number [facility] MEDICAL RELEASE/CLEARANCE FORMS (03/18/2019 12:01 AM CDT)Only the most recent of2 resultswithin the time period is included. Specimen Performing Organization Address City/State/Zipcode Phone Number [facility] BASIC METABOLIC PANEL (NA, K, CL, CO2, GLUCOSE, BUN, CREATININE, CA) (2018 8:30 AM CDT)Only the most recent of6 resultswithin the time period is included. NA 139 135 - 145 [facility] mmol/L [facility] K 4.0 3.5 - 5.0 [facility] mmol/L [facility] CL 94 (L) 98 - 108 mmol/L [facility] CO2 TOTAL 31 23 - 31 mmol/L [facility] AGAP 14 2 - 16 [facility] BUN 21 7 - 23 mg/dL [facility] GLUCOSE 187 (H) 70 - 110 mg/dL [facility] CREATININE 1.27 (H) 0.60 - 1.25 [facility] mg/dL [facility] CALCIUM 10.2 8.6 - 10.6 [facility] mg/dL [facility] eGFR Calculation 60.3 mL/min/1.73m2 [facility] ([facility] LABORATORY [place]) eGFR Calculation 73.1 mL/min/1.73m2 [facility] () [facility] Specimen Blood Narrative Performed At Association of Glomerular Filtration Rate (GFR) [facility] and Staging of Kidney Disease* + + +- + | GFR (mL/min/1.73 m2) | With Kidney Damage | Without Kidney Damage + + +- + | >90 | Stage one | Normal + + +- + | 60-89 | Stage two | Decreased GFR + + +- + | 30-59 | Stage three | Stage three + + +- + | 15-29 | Stage four | Stage four + + +- + | <15 (or dialysis) | Stage five | Stage five + + +- + *Each stage assumes the associated GFR level has been in effect for at least three months. Stages 1 to 5, with or without kidney [...] tests). Performing Organization Address City/State/Zipcode Phone Number [facility] CLIA: [id number], [address] [place] [address] MAGNESIUM (03/12/2019 8:30 AM CDT)Only the most recent of6 resultswithin the time period is included. MAGNESIUM 2.1 1.7 - 2.4 mg/dL [facility] Specimen Blood Performing Organization Address City/State/Zipcode Phone Number [facility] CLIA: [id number], [address] [place] [address] AGREEMENTS AUTHORIZATIONS AND IRREVOCABLE ASSIGNMENTS (FORM 2000) (03/12/2019 12 :01 AM CDT)Only the most recent of6 resultswithin the time period is included. Specimen Performing Organization Address [facility] Phone Number HIM CBC WITH DIFFERENTIAL (03/09/2019 11:39 AM CDT)Only the most recent of4 resultswithin the time period is included. WBC 8.82 4.20 - 10.70 [facility] 10*3/L [facility] RBC 5.01 4.26 - 5.52 [facility] 10*6/L [facility] HGB 12.0 (L) 12.2 - 16.4 [facility] g/dL [facility] HCT 39.2 38.4 - 49.3 % [facility] MCV 78.2 (L) 81.7 - 95.6 fL [facility] MCH 24.0 (L) 26.1 - 32.7 pg [facility] MCHC 30.6 (L) 31.2 - 35.0 [facility] g/dL [facility] RDW-SD 48.9 38.5 - 51.6 fL [facility] RDW-CV 17.9 (H) 12.1 - 15.4 % [facility] PLT 294 150 - 328 [facility] 10*3/L [facility] MPV 9.7 (L) 9.8 - 13.0 fL [facility] NRBC/100 WBC 0.0 0.0 - 10.0 /100 [facility] WBCs [facility] NRBC x10^3 <0.01 10*3/L [facility] GRAN MAT (NEUT) % 68.7 % [facility] IMM GRAN % 0.50 % [facility] LYMPH % 20.9 % [facility] MONO % 7.6 % [facility] EOS % 1.7 % [facility] BASO % 0.6 % [facility] GRAN MAT x10^3(ANC) 6.07 1.99 - 6.95 [facility] 10*3/uL HOSPITAL LAB[facility]ATORY IMM GRAN x10^3 0.04 0.00 - 0.06 [facility] 10*3/uL HOSPITAL [facility] LYMPH x10^3 1.84 1.09 - 3.23 [facility] 10*3/uL HOSPITAL LAB[facility]ORY MONO x10^3 0.67 0.36 - 1.02 [facility] 10*3/uL HOSPITAL LAB[facility]ORY EOS x10^3 0.15 0.06 - 0.53 [facility] 10*3/uL HOSPITAL [facility] BASO x10^3 0.05 0.01 - 0.09 [facility] 10*3/uL [facility]ITAL [facility] Specimen Blood Performing Organization Address City/State/Zipcode Phone Number [facility] CLIA: [id number], [address] [place] [address] PHYSICIAN ORDERS (03/09/2019 12:01 AM CDT)Only the most recent of2 resultswithin the time period is included. Specimen Performing Organization Address City/State/[facility] Cent[facility] Phone Number HIM PO[facility]) (02/26/2019)Only the most recent of2 resultswithin the time period is included. POCT PT/INR 3.3 (A) 0.8 - 1.4 INR POCT PT/SEC 39.8 SEC Specimen Blood - CAPILLARY TESTOSTERONE (02/24/2019 4:17 PM CDT) TESTOST 150.0 132.0 - 813.0 ng/dL [facility] Specimen Blood Narrative Performed At Normal Ranges [facility] Adult Female: 6-77 ng/dL Adult Male <50 years: 132-813 ng/dL Adult Male >50 years: 72-623 ng/dL Females on Control Pills may have higher results. Obese patients may have lower results. Biotin has been reported to cause a negative bias, interpret results relative to patient's use of biotin. Performing Organization Address City/State/Zipcode Phone Number [facility] CLIA: [id number], [address] [place] [address] [facility] PROSTATIC SPECIFIC ANTIGEN SCREEN (02/24/2019 4:17 PM CDT) PSA 0.25 <=4.00 ng/mL [facility] Specimen Blood Narrative Performed At [facility] has been reported to cause a negative [facility] bias, interpret results relative to patient's use of biotin. Performing Organization Address City/State/Zipcode Phone Number [facility] CLIA: [id number], [address] [place] [address] PATIENT QUESTIONNAIRE (02/24/2019 12:01 AM CDT) Specimen Performing Organization Address City/State/Zipcode Phone Number HIM POCT HEMOGLOBIN A1C TEST (02/24/2019) Pathologist [facility] [place] POCT HBA1C 8.2 4 - 6 % Specimen Blood - CAPILLARY Urinalysis (02/13/2019 2:17 AM CDT)Only the most recent of2 resultswithin the time period is included. APPEARANCE Clear Clear [facility] COLOR Yellow Yellow [facility] PH 6.5 4.8 - 8.0 [facility] SP GRAVITY 1.010 1.003 - 1.030 [facility] GLU U QUAL Negative Negative [facility] BLOOD Negative Negative [facility] KETONES Negative Negative [facility] PROTEIN Negative Negative [facility] UROBILIN 0.2 mg/dL 0-1.0 mg/dL [facility] BILIRUBIN Negative Negative [facility] NITRITE Negative Negative [facility] LEUK TRE Negative Negative [facility] RBC/HPF 1 0 - 3 HPF [facility] WBC/HPF 0 0 - 5 HPF [facility] BACTERIA Negative Negative [facility] Specimen Urine - URINE, CLEAN CATCH Performing Organization Address [facility] Cent[facility]ode Phone Number [facility] CLIA: [id number], [address] [place] [address] [facility] Troponin I (02/13/2019 2:17 AM CDT) TROPONIN I <0.012 <=0.034 ng/mL [facility] Specimen Blood - VENOUS Narrative Performed At Equal or Less than 0.034 ng/ml---Normal [facility] Note: Cardiac troponin begins to [...] patient's use of biotin. Performing Organization Address [facility] Cent[facility]ode Phone Number [facility] CLIA: [id number], [address] [place] [address] [facility] EKG-12 LEAD (02/13/2019 1:58 AM CDT) Specimen Performing Organization Address [facility] Cent[facility]ode Phone Number HST NOTICE OF PRIVACY PRACTICES (02/13/2019 1:37 AM CDT)Only the most recent of2 resultswithin the time period is included. Specimen Performing Organization Address [facility]/Zipcode Phone Number [facility] CONSENT/REFUSAL FOR DIAGNOSIS AND TREATMENT (02/13/2019 1:36 AM CDT)Only the most recent of3 resultswithin the time period is included. Specimen Performing Organization Address [facility]/State/Zipcode Phone Number [facility] EMERGENCY SERVICES AGREEMENTS AND AUTHORIZATIONS (02/13/2019 12:01 AM CDT)Only the most recent of2 resultswithin the time period is included. Specimen Performing Organization Address [facility]/Zipcode Phone Number [facility] COMP. METABOLIC PANEL ([id number]) (02/09/2019 9:51 AM CDT)Only the most recent of2 resultswithin the time period is included. NA 136 135 - 145 [facility] mmol/L [facility] K 3.2 (L) 3.5 - 5.0 [facility] mmol/L [facility] CL 91 (L) 98 - 108 mmol/L [facility] CO2 TOTAL 33 (H) 23 - 31 mmol/L [facility] AGAP 12 2 - 16 [facility] BUN 23 7 - 23 mg/dL [facility] GLUCOSE 248 (H) 70 - 110 mg/dL [facility] CREATININE 1.03 0.60 - 1.25 [facility] mg/dL [facility] TOTAL BILI 0.5 0.1 - 1.1 mg/dL [facility] CALCIUM 9.2 8.6 - 10.6 [facility] mg/dL [facility] T PROTEIN 8.5 (H) 6.3 - 8.2 g/dL [facility] ALBUMIN 4.4 3.5 - 5.0 g/dL [facility] ALK PHOS 111 34 - 122 U/L [facility] ALT(SGPT) 24 9 - 51 U/L [facility] AST(SGOT) 46 (H) 13 - 40 U/L [facility] eGFR Calculation 76.8 mL/min/1.73m2 [facility] ([facility] LABORATORY [place]) eGFR Calculation 93.0 mL/min/1.73m2 [facility] ([facility]) [facility] Specimen Blood - ARM, RIGHT Narrative Performed At [facility] Glomerular Filtration Rate (GFR) [facility] and Staging of Kidney Disease* + + +- + | GFR (mL/min/1.73 m2) | With Kidney Damage | Without Kidney Damage + + +- + | >90 | Stage one | Normal + + +- + | 60-89 | Stage two | Decreased GFR + + +- + | 30-59 | Stage three | Stage three + + +- + | 15-29 | Stage four | Stage four + + +- + | <15 (or dialysis) | Stage five | Stage five + + +- + *Each stage assumes the associated GFR level has been in effect for at least three months. Stages 1 to 5, with or without kidney [...] abnormalities in imaging tests). Performing Organization Address City/[facility]/Zipcode Phone Number [facility] CLIA: [id number], [address] [place] [address] EKG-12 LEAD (02/09/2019 9:41 AM CDT) Specimen Performing Organization Address [facility]/Zipcode Phone Number [facility] VITAMIN B1 (THIAMINE), WHOLE BLOOD (02/06/2019 9:01 AM CDT) Pathologist [facility] [place] Vitamin B1, Whole 104 70 - 180 [facility] Blood Comment: nmol/L INTERPRETIVE INFORMATION: Vitamin B1, Whole Blood This assay measures the concentration of thiamine diphosphate (TDP), the primary active form of vitamin B1. Approximately 90 percent of vitamin B1 present in whole blood is TDP. Thiamine and thiamine monophosphate, which comprise the remaining 10 percent, are not measured. Test developed and characteristics determined by [facility]. See Compliance Statement B: [employer] Performed by [facility], [address] [place] [address] [id number] [email or web address], Piyush Price MD, Lab. Director Specimen Blood Performing Organization Address [facility] Phone Number [facility] [address] [place] [address] CREATININE, URINE RANDOM (02/06/2019 9:01 AM CDT) CREAT U 63.2 mg/dL [facility] Specimen Urine - URINE, CLEAN CATCH Performing Organization Address [facility]/Zipcode Phone Number [facility] CLIA: [id number], [address] [place] [address] VITAMIN D, 25-OH (02/06/2019 9:01 AM CDT) Pathologist [facility] [place] VIT D 25OH 60 25 - 80 ng/mL [facility] 25-Hydroxy D3 60.2 ng/mL [facility] 25-Hydroxy D2 <2.5 ng/mL [facility] Specimen Blood Narrative Performed At Test developed and characteristics determined by [facility] Laboratory Services. Performing Organization Address [facility] Phone Number [facility] CLIA: [id number], [address] [place] [address] [phone] [facility] HOMOCYSTEINE (02/06/2019 9:01 AM CDT) Homocysteine 9.5 6.6 - 14.8 umol/L [facility] Specimen Blood Performing Organization Address [facility] Phone Number [facility] CLIA: [id number], [address] [place] [address] [facility] HIGH SENSITIVITY CRP (02/06/2019 9:01 AM CDT) HS CRP 4.75 (H) <0.74 mg/dL [facility] Specimen Blood Performing Organization Address [facility] Phone Number [facility] CLIA: [id number], [address] [place] [address] [facility] URINE CULTURE (02/06/2019 9:01 AM CDT) URINE CULTURE No aerobic organisms [facility] isolated SERVICES Specimen Urine - URINE, CLEAN CATCH Performing Organization Address [facility] Phone Number [facility] CLIA: [id number], [address] [place] [address] [facility] MICROALBUMIN URINE (02/06/2019 9:01 AM CDT) CREAT U 62.6 mg/dL [facility] MICROALB U 3 0 - 45 ug/mL [facility] MICROAL/CR 542 0-3,500 ug/mmol [facility] creatinine SERVICES Specimen Urine - URINE, CLEAN CATCH Performing Organization Address [facility] Phone Number [facility] CLIA: [id number], [address] [place] [phone] [facility] TOTAL IRON BINDING CAPACITY (02/06/2019 9:01 AM CDT) TIBC 314 250 - 410 ug/dL [facility] % FE SAT 17 (L) 20 - 50 % [facility] Specimen Blood Performing Organization Address City/State/Zipcode Phone Number [facility] CLIA: [id number], [address] [place] [address] FOLATE (02/06/2019 9:01 AM CDT) FOLATE SER 15.0 3.0 - 20.0 ng/mL [facility] Specimen Blood Performing Organization Address City/State/Zipcode Phone Number [facility] CLIA: [id number], [address] [place] [address] [facility] VITAMIN B12, LEVEL (02/06/2019 9:01 AM CDT) VIT B12 543 240 - 930 pg/mL [facility] Specimen Blood Narrative Performed At Biotin has been reported to cause a positive bias, interpret [facility] results relative to patient's use of biotin. Performing Organization Address City/State/[facility] Cent[facility] Phone Number [facility] CLIA: [id number], [address] [place] [address] [facility] IRON (02/06/2019 9:01 AM CDT) IRON 52 50 - 160 ug/dL [facility] Specimen Blood Performing Organization Address [facility] Phone Number [facility] CLIA: [id number], [address] [place] [address] FERRITIN SERUM (02/06/2019 9:01 AM CDT) FERRITIN 66.3 18.0 - 464.0 ng/mL [facility] Specimen Blood Narrative Performed At [employer] has been reported to cause a negative [facility] bias, interpret results relative to patient's use of biotin. Performing Organization Address City/[facility] Phone Number [facility] CLIA: [id number], [address] [place] [address] URIC ACID (02/06/2019 9:01 AM CDT) URIC ACID 7.2 3.6 - 8.0 mg/dL [facility] Specimen Blood Performing Organization Address City/[facility] Phone Number [facility] CLIA: [id number], [address] [place], [place] [phone] [facility] VITAMIN B6, PLASMA (02/06/2019 9:01 AM CDT) VIT B6 154.9 (H) 20.0 - 125.0 [facility] Comment: nmol/L INTERPRETIVE INFORMATION: Vitamin B6 (Pyridoxal 5-Phosphate) Pyridoxal 5'-phosphate measured in a specimen collected following an 8-hour or overnight fast accurately indicates vitamin B6 nutritional status. Non-fasting specimen concentration reflects recent vitamin intake. Test developed and characteristics determined by [facility]. See Compliance Statement B: [employer] Performed by [facility], [address] [place] [id number] [email or web address], Piyush Price MD, Lab. Director Specimen Blood Performing Organization Address [facility]/Zipcode Phone Number [facility] [address] [place] [address] ZINC, SERUM (02/06/2019 9:01 AM CDT) ZINC 52.1 (L) 60.0 - 120.0 [facility] Comment: ug/dL INTERPRETIVE INFORMATION: Zinc, Serum or Plasma Elevated results may be due to skin or collection-related contamination, including the use of a noncertified metal-free collection/transport tube. If contamination concerns exist due to elevated levels of serum/plasma zinc, confirmation with a second specimen collected in a certified metal-free tube is recommended. Circulating zinc concentrations are dependent on albumin status and are depressed with malnutrition. Zinc may also be lowered with infection, inflammation, stress, oral contraceptives, and . Zinc may be elevated with zinc supplementation or fasting. Elevated zinc concentrations may interfere with copper absorption. Test developed and characteristics determined by [facility]. See Compliance Statement B: [employer] Performed by [facility], [address] [place] [id number] [email or web address], Piyush Price MD, Lab. Director Specimen Blood Performing Organization Address City/[facility]/Zipcode Phone Number [facility] [address] [place] [address] [place] MYOCARDIUM PERFUSION STRESS AND REST (01/06/2019 [...] * * * * PACS/VR/DOSE MYOCARDIAL PERFUSION EXAM - STRESS REST 2 [...] ventricular wall motion is normal Procedure Note [facility] [place], Radiant Results Inft User - 01/10/2019 11:34 [...] Normal left ventricular function. Performing Organization Address City/State/Zipcode Phone Number PACS/VR/DOSE from Last 3 Months Insurance Payer Benefit Plan / Subscriber ID Effective Phone Address Type Group Dates HIM [facility] [id number] 2017-[employer]ux [phone] HMO HEALTH [employer] HEALTH CHOICE 86 [phone] [place] [address] (Home) [place] [address] Advance Directives Name Relationship Healthcare Agent Communication Relationship Keaton Nelson Spouse Primary healthcare agent [phone] Elisabeth Soliz Sibling First alternate healthcare [phone] agent (Mobile)
--- OUTSIDE RECORDS SUMMARY | 2019-05-11 01:20 | XMS REPORT | Clinical Summary ---
:1970 Author Organization [facility] Address [address] [place] [address] Care Team Providers Name Role Phone Lilibeth Andrade MD Primary Care Provider Libby Espinoza RN Unavailable Unavailable Al Valiente MD Unavailable Junito Quezada MD Unavailable Karena Anand [employer] Unavailable Unavailable Tito Kirkpatrick Unavailable Allergies Active [...] Reported on 07/15/2016 3:40 PM Insulin [place], Disposable, Use as directed, QID, 400 Each [...] Overview: Added automatically from request for surgery [id number] Syncope 04/01/2017 Chest pain, rule out acute [...] Chest pain 06/12/2016 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 VT (myocardial [...] Jones MD Refill Request & Metabolism 04/05/2019 Hydrostatic Tubing Tester Visit Phlebotomy Robert Adkins MD CHF (congestive [...] Lab Results; LAB MD Namita WORK 03/12/2019 Hydrostatic Tubing Tester Visit Phlebotomy Robert Adkins MD CHF (congestive 2, Adc Lab heart failure) 03/12/2019 Orders Only Doctor Unassigned, [place] 03/12/2019 Telephone Cardiology Robert Adkins Pre-op Clearance MD Namita ([facility]) 03/11/2019 Refill Internal Medicine Lupe Refill Request Lilibeth Payne MD 03/10/2019 Refill Internal Medicine [place] Refill Request Lilibeth Payne MD 03/09/2019 Hydrostatic Tubing Tester Visit Clinical Medical Harry Lunajit Radiculopathy , Laboratory MD Tania unspecified spinal 1, Adc Lab region (Primary Dx) 03/09/2019 Hydrostatic Tubing Tester Visit Phlebotomy Robert Adkins Hypopotassemia MD Namita 2, Adc Lab 03/09/2019 Orders Only Doctor Unassigned, [place] 03/03/2019 Telephone Cardiology Robert Adkins LAB WORK; Lab MD Namita Results; Medication Dose Change 03/02/2019 Hydrostatic Tubing Tester Visit Phlebotomy Robert Adkins Acute on chronic diastolic congestive heart failure; MD Namita Hypopotassemia 2, Adc Lab 03/02/2019 Orders Only Doctor Unassigned, [place] 03/01/2019 [facility] Encounter Electrophysiology Simi, Remote Device Check At Home - 02/26/2019 Nurse Visit Anti-coagulation Clinic Nat, Anticoagulation management encounter; Harley Other pulmonary embolism without acute cor pulmonale, unspecified chronicity; MD Fei ST elevation myocardial infarction involving right coronary artery Nurse, Christen Anticoag 02/24/2019 Hydrostatic Tubing Tester Visit Clinical Medical Zhen Jones MD Secondary male Laboratory 1, Adc Lab hypogonadism 02/24/2019 Office Visit Endocrinology Diabetes Zhen Jones MD 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); & Metabolism Secondary male hypogonadism; Dyslipidemia; Essential hypertension; High serum aldosterone 02/24/2019 Orders Only Doctor Unassigned, [place] 02/24/2019 Telephone Cardiology Robert Adkins Results MD Namita 02/23/2019 Office Visit Internal Medicine Lupe, Other fatigue ( Primary Dx); Lilibeth Payne MD Vitamin B12 deficiency; Uric acid stone in urine; Chest pain, unspecified type; Skin problem 02/23/2019 Hydrostatic Tubing Tester Visit Phlebotomy Silvia Shaffer MD 2, Adc Lab 02/23/2019 Orders Only Doctor Unassigned, [place] 02/23/2019 Refill Internal Medicine Lupe, Refill Request Lilibeth Payne MD 02/19/2019 Telephone Cardiology Robert Adkins LAB WORK; Lab MD Namita Results 02/14/2019 Telephone Cardiology Sundar Novak, Abnormal Lab MBBS 02/13/2019 Emergency Emergency Medicine Amisha Toth Weakness (Primary J, DO Dx) 02/12/2019 Hydrostatic Tubing Tester Visit Phlebotomy Andrade, Hypopotassemia Lilibeth Payne MD 2, Adc Lab 02/12/2019 Orders Only Doctor Unassigned, [place] 02/09/2019 Office Visit Cardiology Robert Adkins Hypopotassemia (Primary Dx); MD Namita Chronic diastolic CHF (congestive heart failure); 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 02/09/2019 Emergency Emergency Medicine Yarima, [place] Fatigue, unspecified type (Primary Dx); MD Tania Hypokalemia; Uncontrolled type 2 diabetes mellitus with hyperglycemia 02/09/2019 Telephone Cardiology Robert Adkins Assessment MD Namita 02/08/2019 Telephone Cardiology Sundar Novak, Abnormal Lab MBBS 02/06/2019 Hydrostatic Tubing Tester Visit Clinical Medical Lupe, Hypouricemia ( Primary Dx); Laboratory Lilibeth Payne MD Need for prophylactic chemotherapy; 1, Adc Lab Chronic diastolic congestive heart failure 02/06/2019 Orders Only Doctor Unassigned, [place] 02/05/2019 Telephone Cardiology Robert Adkins Pre-Visit Planning; MD Namita Appointment 01/29/2019 Nurse Visit Anti-coagulation Clinic [place], Other pulmonary embolism without acute cor pulmonale, unspecified chronicity; MD Osmar Anticoagulation management encounter Nurse, [facility] Anticoag 01/26/2019 Office Visit Internal Medicine Lupe, Seborrheic dermatitis (Primary Dx); Lilibeth Payne MD Constipation, unspecified constipation type; 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; Iron deficiency anemia due to chronic blood loss; Sore throat; Ear ache; Frequent headaches; Nausea 01/09/2019 Telephone Cardiology Robert Adkins Results MD Namita 01/06/2019 [facility] Radiology Robert Adkins Encounter MD Namita 01/06/2019 [facility] Radiology Robert Adkins Encounter MD [...] [id number] [place] [address] [phone] 04/12/2019 Surgery Surgery Dagoberto Luna LUMBAR EPIDURAL MD Tania STEROID INJECTION [id number], [place] [address] [phone] 04/20/2019 Appointment Radiology Robert Adkins MD [address] [facility] [id number] [place], [place] [address] 04/20/2019 Appointment Radiology Robert Adkins MD [id number] [place], [place] [phone] 04/26/2019 Hospital Encounter Surgery Dagoberto Luna MD [id number] [place] [address] [phone] 04/26/2019 Surgery Surgery Dagoberto Luna LUMBAR EPIDURAL MD Tania STEROID INJECTION [id number] [place] [phone] 05/04/2019 Office Visit Cardiology Al Valiente MD [address] [place] [address] [place] [phone] 05/07/2019 Nurse Visit Anti-coagulation Clinic Nurse, Vtc Anticoag 05/13/2019 Office Visit Internal Medicine Lilibeth Andrade MD [address] [place] [address] [address] [place] [address] [phone] 05/27/2019 Appointment Cardiac Outpt-Simi, Electrophysiology Pacemaker/Icd 06/01/2019 Office Visit Internal Medicine Lilibeth Andrade MD [address] [place] [address] Dr [address] [place] [address] [phone] 07/06/2019 Office Visit Internal Medicine Lilibeth Andrade MD [address] [place] [address] Dr [address] [place] [phone] 07/13/2019 Office Visit Endocrinology Diabetes Zhen Jones MD & Metabolism [address] [place] [address] [phone] 09/28/2019 Office Visit Cardiology Robert Adkins MD [id number] [place] [address] [phone] 10/27/2019 Office Visit Pulmonary Disease Max Aguiar [address] [place] [address] Dr [address] [place] [address] [phone] 12/08/2019 Office Visit Ophthalmology Yariel Tineo MD [address] [place] [address] [phone] Health Maintenance Due Date Last Done Comments [...] 06/27/2017 (Not Indicated) Implants Implanted Type Area Asphalt Paver Device Shelf Model / Identifier Expiration Serial / Date Lot Prolene Mesh MESH Right: Ethicon 12/20/2020 PMSK / Implanted: Qty: 1 on 07/04/2016 by Alfonso Martinez MD at [facility] [employer] PMSK / [id number] Stent-06/24/2016 Implanted: 06/24/2016 (Quantity not on file) [...] PANEL STAT 02/09/2019 Fatigue, unspecified Results for (70603) 9:51 AM CDT type this procedure are [...] METABOLIC PANEL Routine 02/06/2019 Hypouricemia Results for (57692) 9:01 AM CDT Need for this procedure [...] results section. ZINC, SERUM Routine 02/06/2019 Other long wall mining machine helper Results for 9:01 AM CDT (current) drug this procedure therapy are in the results section. HIGH SENSITIVITY CRP Routine 02/06/2019 Other long wall mining machine helper Results for 9:01 AM CDT (current) drug this procedure therapy are in the results section. HOMOCYSTEINE Routine 02/06/2019 Other care home Results for 9:01 AM CDT (current) drug this procedure therapy are in the results section. FOLATE Routine 02/06/2019 Other care home Results for 9:01 AM CDT (current) drug this procedure therapy are in the results section. VITAMIN D, 25-OH Routine 02/06/2019 Other care home Results for 9:01 AM CDT (current) drug this procedure therapy are in the results section. VITAMIN B12, LEVEL Routine 02/06/2019 Other long wall mining machine helper Results for 9:01 AM CDT (current) drug this procedure therapy are in the results section. VITAMIN B6, PLASMA Routine 02/06/2019 Other long wall mining machine helper Results for 9:01 AM CDT (current) drug this procedure therapy are in the results section. VITAMIN B1 Routine 02/06/2019 Other care home Results for (THIAMINE), WHOLE 9:01 AM CDT [...] AM CDT disease involving this procedure REST peoria coronary are in the artery of peoria results heart with angina section. pectoris from Last 3 Months Results N-TERMINAL PRO-BNP (04/05/2019 8:24 AM CDT)Only the most recent of3 resultswithin the time period is included. NT-proBNP 33 <=125 pg/mL [facility] Specimen Blood - ARM, RIGHT Narrative Performed At Biotin has been reported to cause a negative [facility] bias, interpret results relative to patient's use of biotin. Performing Organization Address City/State/Zipcode Phone Number [facility] CLIA: [id number], [address] [place] [address] [facility] [place] TIME (NON-REPORTABLE) (03/29/2019 8:20 AM CDT) Specimen Narrative Performed At These images do not require a Radiology diagnostic report. PACS Performing Organization Address City/State/Zipcode Phone Number PACS POCT GLUCOSE(AGE >30DAYS) (03/29/2019 7:10 AM CDT) POCT Glu (age>30days) 175 (A) 70 - 110 mg/dL Specimen Blood - VENOUS POCT GLUCOSE (AUTOMATED) (03/29/2019 7:08 AM CDT) POCT GLU 175 (H) 70 - 110 mg/dL [facility] Specimen Blood Performing Organization Address City/State/Zipcode Phone Number [facility] CLIA: [id number], [address] [place] [address] [facility] DAY SURGERY - ADC (03/29/2019 12:01 AM CDT) Specimen Performing Organization Address City/State/Zipcode Phone Number [facility] MEDICAL RELEASE/CLEARANCE FORMS (03/18/2019 12:01 AM CDT)Only the most recent of2 resultswithin the time period is included. Specimen Performing Organization Address City/State/Zipcode Phone Number [facility] BASIC METABOLIC PANEL (NA, K, CL, CO2, GLUCOSE, BUN, CREATININE, CA) (2018 8:30 AM CDT)Only the most recent of6 resultswithin the time period is included. NA 139 135 - 145 [facility] mmol/L [facility] K 4.0 3.5 - 5.0 [facility] mmol/L [facility] CL 94 (L) 98 - 108 mmol/L [facility] CO2 TOTAL 31 23 - 31 mmol/L [facility] AGAP 14 2 - 16 [facility] BUN 21 7 - 23 mg/dL [facility] GLUCOSE 187 (H) 70 - 110 mg/dL [facility] CREATININE 1.27 (H) 0.60 - 1.25 [facility] mg/dL [facility] CALCIUM 10.2 8.6 - 10.6 [facility] mg/dL [facility] eGFR Calculation 60.3 mL/min/1.73m2 [facility] ([facility] LABORATORY [place]) eGFR Calculation 73.1 mL/min/1.73m2 [facility] () [facility] Specimen Blood Narrative Performed At Association of Glomerular Filtration Rate (GFR) [facility] and Staging of Kidney [...] tests). Performing Organization Address City/State/Zipcode Phone Number [facility] CLIA: [id number], [address] [place] [address] MAGNESIUM (03/12/2019 8:30 AM CDT)Only the most recent of6 resultswithin the time period is included. MAGNESIUM 2.1 1.7 - 2.4 mg/dL [facility] Specimen Blood Performing Organization Address City/State/Zipcode Phone Number [facility] CLIA: [id number], [address] [place] [address] AGREEMENTS AUTHORIZATIONS AND IRREVOCABLE ASSIGNMENTS (FORM 2000) (03/12/2019 12 :01 AM CDT)Only the most recent of6 resultswithin the time period is included. Specimen Performing Organization Address [facility] Phone Number HIM CBC WITH DIFFERENTIAL (03/09/2019 11:39 AM CDT)Only the most recent of4 resultswithin the time period is included. WBC 8.82 4.20 - 10.70 [facility] 10*3/L [facility] RBC 5.01 4.26 - 5.52 [facility] 10*6/L [facility] HGB 12.0 (L) 12.2 - 16.4 [facility] g/dL [facility] HCT 39.2 38.4 - 49.3 % [facility] MCV 78.2 (L) 81.7 - 95.6 fL [facility] MCH 24.0 (L) 26.1 - 32.7 pg [facility] MCHC 30.6 (L) 31.2 - 35.0 [facility] g/dL [facility] RDW-SD 48.9 38.5 - 51.6 fL [facility] RDW-CV 17.9 (H) 12.1 - 15.4 % [facility] PLT 294 150 - 328 [facility] 10*3/L [facility] MPV 9.7 (L) 9.8 - 13.0 fL [facility] NRBC/100 WBC 0.0 0.0 - 10.0 /100 [facility] WBCs [facility] NRBC x10^3 <0.01 10*3/L [facility] [...] GRAN MAT x10^3(ANC) 6.07 1.99 - 6.95 [facility] 10*3/uL HOSPITAL LABORATORY IMM GRAN x10^3 0.04 0.00 - 0.06 [facility] 10*3/uL HOSPITAL LABORATORY LYMPH x10^3 1.84 1.09 - 3.23 [facility] 10*3/uL HOSPITAL LABORATORY MONO x10^3 0.67 0.36 - 1.02 [facility] 10*3/uL HOSPITAL LABORATORY EOS x10^3 0.15 0.06 - 0.53 [facility] 10*3/uL HOSPITAL LABORATORY BASO x10^3 0.05 0.01 - 0.09 [facility] 10*3/uL HOSPITAL LABORATORY Specimen Blood Performing Organization Address City/State/Zipcode Phone Number [facility] CLIA: [id number], [address] [place] [address] PHYSICIAN ORDERS (03/09/2019 12:01 AM CDT)Only the most recent of2 resultswithin the time period is included. Specimen Performing Organization Address City/State/[facility] Phone Number HIM POCT PT[facility]INR[facility] (02/26/2019)Only the most recent of2 resultswithin the time period is included. POCT PT/INR 3.3 (A) 0.8 - 1.4 INR POCT PT/SEC 39.8 SEC Specimen Blood - CAPILLARY TESTOSTERONE (02/24/2019 4:17 PM CDT) TESTOST 150.0 132.0 - 813.0 ng/dL [facility]ORAT[facility] SERVICES Specimen Blood Narrative Performed At Normal Ranges [facility] SERVICES Adult Female: 6-77 ng/dL Adult Male <50 years: 132-813 ng/dL Adult Male >50 years: 72-623 ng/dL Females on Control Pills may have higher results. Obese patients may have lower results. Biotin has been reported to cause a negative bias, interpret results relative to patient's use of biotin. Performing Organization Address City/State/Zipcode Phone Number [facility] SERVICES CLIA: [id number], [address] [place] [address] [phone] [facility] PROSTATIC SPECIFIC ANTIGEN SCREEN (02/24/2019 4:17 PM CDT) PSA 0.25 <=4.00 ng/mL [facility] Specimen Blood Narrative Performed At [facility] has been reported to cause a negative [facility] bias, interpret results relative to patient's use of biotin. Performing Organization Address City/State/Zipcode Phone Number [facility] CLIA: [id number], [address] [place] [address] PATIENT QUESTIONNAIRE (02/24/2019 12:01 AM CDT) Specimen Performing Organization Address City/State/Zipcode Phone Number HIM POCT HEMOGLOBIN A1C TEST (02/24/2019) Pathologist [facility] POCT HBA1C 8.2 4 - 6 % Specimen Blood - CAPILLARY Urinalysis (02/13/2019 2:17 AM CDT)Only the most recent of2 resultswithin the time period is included. APPEARANCE Clear Clear [facility] COLOR Yellow Yellow [facility] PH 6.5 4.8 - 8.0 [facility] SP GRAVITY 1.010 1.003 - 1.030 [facility] GLU U QUAL Negative Negative [facility] BLOOD Negative Negative [facility] KETONES Negative Negative [facility] PROTEIN Negative Negative [facility] UROBILIN 0.2 mg/dL 0-1.0 mg/dL [facility] BILIRUBIN Negative Negative [facility] NITRITE Negative Negative [facility] LEUK TRE Negative Negative [facility] RBC/HPF 1 0 - 3 HPF [facility] WBC/HPF 0 0 - 5 HPF [facility] BACTERIA Negative Negative [facility] Specimen Urine - URINE, CLEAN CATCH Performing Organization Address [facility] Phone Number [facility] CLIA: [id number], [address] [place] [address] [facility] Troponin I (02/13/2019 2:17 AM CDT) TROPONIN I <0.012 <=0.034 ng/mL [facility] Specimen Blood - VENOUS Narrative Performed At Equal or Less than 0.034 ng/ml---Normal [facility] Note: Cardiac troponin begins [...] patient's use of biotin. Performing Organization Address [facility] Phone Number [facility] CLIA: [id number], [address] [place] [address] [facility] EKG-12 LEAD (02/13/2019 1:58 AM CDT) Specimen Performing Organization Address [facility] Phone Number HST NOTICE OF PRIVACY PRACTICES (02/13/2019 1:37 AM CDT)Only the most recent of2 resultswithin the time period is included. Specimen Performing Organization Address [facility]/Zipcode Phone Number [facility] CONSENT/REFUSAL FOR DIAGNOSIS AND TREATMENT (02/13/2019 1:36 AM CDT)Only the most recent of3 resultswithin the time period is included. Specimen Performing Organization Address [facility]/State/Zipcode Phone Number [facility] EMERGENCY SERVICES AGREEMENTS AND AUTHORIZATIONS (02/13/2019 12:01 AM CDT)Only the most recent of2 resultswithin the time period is included. Specimen Performing Organization Address [facility]/Zipcode Phone Number [facility] COMP. METABOLIC PANEL ([id number]) (02/09/2019 9:51 AM CDT)Only the most recent of2 resultswithin the time period is included. NA 136 135 - 145 [facility] mmol/L [facility] K 3.2 (L) 3.5 - 5.0 [facility] mmol/L [facility] CL 91 (L) 98 - 108 mmol/L [facility] CO2 TOTAL 33 (H) 23 - 31 mmol/L [facility] AGAP 12 2 - 16 [facility] BUN 23 7 - 23 mg/dL [facility] GLUCOSE 248 (H) 70 - 110 mg/dL [facility] CREATININE 1.03 0.60 - 1.25 [facility] mg/dL [facility] TOTAL BILI 0.5 0.1 - 1.1 mg/dL [facility] CALCIUM 9.2 8.6 - 10.6 [facility] mg/dL [facility] T PROTEIN 8.5 (H) 6.3 - 8.2 g/dL [facility] ALBUMIN 4.4 3.5 - 5.0 g/dL [facility] ALK PHOS 111 34 - 122 U/L [facility] ALT(SGPT) 24 9 - 51 U/L [facility] AST(SGOT) 46 (H) 13 - 40 U/L [facility] eGFR Calculation 76.8 mL/min/1.73m2 [facility] ([facility] LABORATORY Fijian) eGFR Calculation 93.0 mL/min/1.73m2 [facility] ([facility]) [facility] Specimen Blood - ARM, RIGHT Narrative Performed At Association of Glomerular Filtration Rate (GFR) [facility] and Staging of Kidney [...] abnormalities in imaging tests). Performing Organization Address City/[facility]/Zipcode Phone Number [facility] CLIA: [id number], [address] [place] [address] EKG-12 LEAD (02/09/2019 9:41 AM CDT) Specimen Performing Organization Address [facility]/Zipcode Phone Number HST VITAMIN B1 (THIAMINE), WHOLE BLOOD (02/06/2019 9:01 AM CDT) Pathologist [facility] Vitamin B1, Whole 104 70 - 180 [facility] Blood Comment: nmol/L INTERPRETIVE INFORMATION: Vitamin B1, Whole Blood This assay measures the concentration of thiamine diphosphate (TDP), the primary active form of vitamin B1. Approximately 90 percent of vitamin B1 present in whole blood is TDP. Thiamine and thiamine monophosphate, which comprise the remaining 10 percent, are not measured. Test developed and characteristics determined by [employer]. See Compliance Statement B: [facility] Performed by [employer], [address] [place] [address] [id number] [email or web address], Piyush Price MD, Lab. Director Specimen Blood Performing Organization Address [facility] Phone Number [facility] [address] [place] [address] CREATININE, URINE RANDOM (02/06/2019 9:01 AM CDT) CREAT U 63.2 mg/dL [facility] Specimen Urine - URINE, CLEAN CATCH Performing Organization Address [facility]/Zipcode Phone Number [facility] CLIA: [id number], [address] [place] [address] VITAMIN D, 25-OH (02/06/2019 9:01 AM CDT) Pathologist [facility] VIT D 25OH 60 25 - 80 ng/mL [facility] LABORATORY SERVICES 25-Hydroxy D3 60.2 ng/mL [facility] SERVICES 25-Hydroxy D2 <2.5 ng/mL [facility] SERVICES Specimen Blood Narrative Performed At Test developed and characteristics determined by [facility] LABORATORY SERVICES Laboratory Services. Performing Organization Address [facility] Phone Number [facility] SERVICES CLIA: [id number], [address] [place], [place] [phone] [facility] HOMOCYSTEINE (02/06/2019 9:01 AM CDT) Homocysteine 9.5 6.6 - 14.8 umol/L [facility] Specimen Blood Performing Organization Address [facility] Phone Number [facility] CLIA: [id number], [address] [place] [id number] [phone] [facility] HIGH SENSITIVITY CRP (02/06/2019 9:01 AM CDT) HS CRP 4.75 (H) <0.74 mg/dL [facility] Specimen Blood Performing Organization Address [facility] Phone Number [facility] CLIA: [id number], [address] [place] [address] [phone] [facility] URINE CULTURE (02/06/2019 9:01 AM CDT) URINE CULTURE No aerobic organisms [facility] LABORATORY isolated SERVICES Specimen Urine - URINE, CLEAN CATCH Performing Organization Address [facility] Phone Number [facility] CLIA: [id number], [address] [place] [address] [phone] [facility] MICROALBUMIN URINE (02/06/2019 9:01 AM CDT) CREAT U 62.6 mg/dL [facility] MICROALB U 3 0 - 45 ug/mL [facility] MICROAL/CR 542 0-3,500 ug/mmol [facility] creatinine SERVICES Specimen Urine - URINE, CLEAN CATCH Performing Organization Address [facility] Phone Number [facility] CLIA: [id number], [address] [place] [phone] [facility] TOTAL IRON BINDING CAPACITY (02/06/2019 9:01 AM CDT) TIBC 314 250 - 410 ug/dL [facility] % FE SAT 17 (L) 20 - 50 % [facility] Specimen Blood Performing Organization Address City/State/Zipcode Phone Number [facility] CLIA: [id number], [address] [place] [address] FOLATE (02/06/2019 9:01 AM CDT) FOLATE SER 15.0 3.0 - 20.0 ng/mL [facility] Specimen Blood Performing Organization Address City/State/Zipcode Phone Number [facility] CLIA: [id number], [address] [place] [address] [phone] [facility] VITAMIN B12, LEVEL (02/06/2019 9:01 AM CDT) VIT B12 543 240 - 930 pg/mL [facility] Specimen Blood Narrative Performed At [employer] has been reported to cause a positive bias, interpret [facility] results relative to patient's use of biotin. Performing Organization Address City/State/[facility] Phone Number [facility] CLIA: [id number], [address] [place] [address] [phone] [facility] IRON (02/06/2019 9:01 AM CDT) IRON 52 50 - 160 ug/dL [facility] LABOR[facility]ORY Specimen Blood Performing Organization Address [facility] Phone Number [facility] CLIA: [id number], [address] [place] [address] FERRITIN SERUM (02/06/2019 9:01 AM CDT) FERRITIN 66.3 18.0 - 464.0 ng/mL [facility] LABORATORY Specimen Blood Narrative Performed At [employer] has been reported to cause a negative [facility] LAB[facility] bias, interpret results relative to patient's use of biotin. Performing Organization Address City/[facility] Phone Number [facility] CLIA: [id number], [address] [place] [address] URIC ACID (02/06/2019 9:01 AM CDT) URIC ACID 7.2 3.6 - 8.0 mg/dL [facility] LABORATORY Specimen Blood Performing Organization Address City/[facility] Phone Number [facility] CLIA: [id number], [address] [place], [place] [id number] [facility] VITAMIN B6, PLASMA (02/06/2019 9:01 AM CDT) VIT B6 154.9 (H) 20.0 - 125.0 [facility] Comment: nmol/L INTERPRETIVE INFORMATION: Vitamin B6 (Pyridoxal 5-Phosphate) Pyridoxal 5'-phosphate measured in a specimen collected following an 8-hour or overnight fast accurately indicates vitamin B6 nutritional status. Non-fasting specimen concentration reflects recent vitamin intake. Test developed and characteristics determined by [facility]. See Compliance Statement B: [place]/[facility] Performed by [facility], [address] [place] [id number] [email or web address], Piyush Price MD, Lab. Director Specimen Blood Performing Organization Address [facility]/Zipcode Phone Number [facility] [address] [place] [phone] ZINC, SERUM (02/06/2019 9:01 AM CDT) ZINC [...] absorption. Test developed and characteristics determined by [facility]. See Compliance Statement B: [place] Performed by [facility], [address] [place] [id number] [email or web address], Piyush Price MD, Lab. Director Specimen Blood Performing Organization Address City/[facility]/Zipcode Phone Number [facility] [address] [place] [phone] [place] MYOCARDIUM PERFUSION STRESS AND REST (01/06/2019 [...] ventricular wall motion is normal Procedure Note [facility], Radiant Results Inft User - 01/10/2019 11:34 [...] Group Dates HIM [facility] [id number] 2017-Lux [phone] [address] HMO [facility]ALTH [place] [employer] [facility] [id number] [place] [address] (Home) [place] [address] Advance Directives Name Relationship Healthcare Agent Communication Relationship Keaton Nelson Spouse Primary healthcare agent [email or web address] Elisabeth Soliz Sibling First alternate healthcare [phone] agent (Mobile)
--- OUTSIDE RECORDS SUMMARY | 2019-05-11 01:22 | XMS REPORT | Clinical Summary ---
:1970 Author Organization [facility] - [facility] Address [address] [place] [id number] Care Team Providers Name Role Phone Lilibeth Andrade MD Primary Care Provider Libby Espinoza RN Unavailable Unavailable Al Valiente MD Unavailable Junito Quezada MD Unavailable Karena Anand BULK SEALER OPERATOR Unavailable Unavailable Tito Kirkpatrick MD Unavailable Dharmesh Rodriguez DO Math And Physics Instructor Allergies Active Allergy Reactions Severity Noted Date Comments Adhesive Tape-Silicones Other - See 04/24/2017 Paper tape only !! comments Tears skin. Beta-Blockers Other - See Medium 07/02/2016 Per patient "heart (Beta-Adrenergic Blocking comments rate drop, lethargic, Agts) weak" Tamsulosin Hcl Other - See 06/12/2016 comments Gabapentin Other - See 07/05/2016 diaphoretic comments Mirtazapine Other - See 08/28/2018 Urinary issues, comments gaining weight Quetiapine Fumarate Other - See Medium 04/12/2019 Involuntary jerking comments Spironolactone Other - See 03/18/2017 Breast tenderness [...] DAILY, Reported on 07/15/2016 3:40 PM Insulin Novi, Disposable, Use as directed, QID, 400 Each 1 09/19/2017 Active (RELION PEN NEEDLES) 32 gauge DX:E11.9 x 5/32" Ndle Diclofenac Sodium 1 % [...] by 90 tablet 3 05/27/2018 Active tabletIndications: High plasma mouth daily. homocystine methocarbamol 750 mg tablet Take 750 mg by mouth 0 Active 2 (two) times daily. buprenorphine-naloxone Place 8 mg under the 0 Active (SUBOXONE) 8-2 mg sublingual tongue every 12 film (twelve) hours as needed for Pain (scale 7-10). clopidogrel (PLAVIX) 75 mg Take 1 tablet by 90 tablet 3 07/20/2018 Active tablet mouth daily. atorvastatin (LIPITOR) 40 mg Take 1 tablet by 90 tablet 3 10/13/2018 Active tablet mouth at bedtime. furosemide (LASIX) 80 mg tablet Take 80 mg by mouth 0 Active every morning and evening. aMILoride 5 mg Take 1 tablet by 60 tablet 2 11/02/2018 Active tabletIndications: Hypokalemia mouth 2 (two) times daily. Additional information Patient taking differently: 10 mg Oral TID, Reported on 05/02/2019 5:49 PM warfarin 10 mg tablet Take as directed by 60 tablet 3 10/30/2018 Active [facility] based on INR results. warfarin 7.5 mg tablet Take as directed by 90 tablet 3 10/30/2018 Active [facility] based on INR results. ferrous sulfate (IRON) 325 Take 1 tablet by mouth 3 270 tablet 3 2018 Active mg (65 mg iron) (three) times daily with tabletIndications: Iron meals. deficiency anemia due to chronic blood loss Ranolazine 1,000 mg tablet Take 1 tablet by mouth 2 60 tablet 4 12/09/2018 Active (two) times daily. pantoprazole 40 mg EC Take 1 tablet by mouth 2 90 tablet 3 12/18/2018 Active tablet (two) times daily. testosterone (ANDROGEL) Apply 2 Pumps to area(s) 75 g 3 01/05/2019 Active 20.25 mg/1.25 gram (1.62 %) daily. gel pumpIndications: Low testosterone Cholecalciferol, Vitamin Take by mouth. 0 Active D3, (VITAMIN D3) 2,000 unit tablet hydrocortisone 2.5 % Apply to affected 30 g 3 01/26/2019 Active creamIndications: area(s) 2 (two) times Seborrheic dermatitis daily. polyethylene glycol Take 17 g by mouth daily. 238 g 3 01/26/2019 Active (MIRALAX) 17 gram/dose powderIndications: Constipation, unspecified constipation type cyanocobalamin (VITAMIN 1 mL by Intramuscular 12 mL 3 02/23/2019 Active B-12) 1,000 mcg/mL route every 2 (two) injectionIndications: weeks. Vitamin B12 deficiency allopurinol 300 mg Take 1 tablet by mouth 90 tablet 3 02/23/2019 Active tabletIndications: Uric daily. acid stone in urine metformin ER 500 mg 24 hr Take 1 tablet by mouth 90 tablet 3 02/24/2019 Active tabletIndications: Type 2 daily with breakfast. diabetes mellitus with cardiac complication dulaglutide ([facility]) inject 0.75 mg under the 4 Syringe 4 02/24/2019 Active 0.75 mg/0.5 mL skin weekly. PnIjIndications: Type 2 diabetes mellitus with cardiac complication KCL 20 mEq Take 3 tablets by mouth 3 180 tablet 2 03/03/2019 Active tabletIndications: Acute on (three) times daily. chronic diastolic congestive heart failure, Hypopotassemia proMETHazine 25 mg Take 1 tablet by mouth 30 tablet 3 03/12/2019 Active tabletIndications: every 6 (six) hours as Non-intractable vomiting needed for Nausea and with nausea, unspecified Vomiting (N/V). vomiting type metOLazone 2.5 mg Once daily PRN for weight 30 tablet 0 04/01/2019 Active tabletIndications: Vitamin gain > 3 lbs B12 deficiency clonazePAM 1 mg Take 1 pill PO in the AM, 120 tablet 1 04/08/2019 Active tabletIndications: 1 PO in the afternoon, 1 Generalized anxiety pill PO in the evening. disorder, Panic disorder May take additional 1 without agoraphobia pill as needed acute anxiety. ARIPiprazole 10 [...] anxiety disorder Active Problems Problem Noted Date Pacemaker 05/03/2019 Bradycardia 10/06/2018 Congestive heart failure 08/31/2018 Volume overload 08/31/2018 Anticoagulation management encounter [Z51.81, Z79.01] 08/24/2018 Other pulmonary embolism without acute cor pulmonale, unspecified 08/08/2018 chronicity Status post placement of implantable loop recorder 02/04/2018 Tachycardia 01/06/2018 Angina at rest 01/01/2018 Pulmonary emboli 11/03/2017 Electrolyte abnormality 07/17/2017 Chronic diastolic congestive heart failure 04/25/2017 Other iron deficiency anemia 04/01/2017 Overview: Added automatically from request for surgery [id number] Syncope 04/01/2017 Chest pain, rule out acute [...] Chest pain 06/12/2016 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 SD (myocardial [...] Encounters Date Type Specialty Care Team Description 05/02/2019 Emergency Medicine - Inpatient Amisha Toth Chest pain - only J, DO 05/05/2019 Thaddeus Interiano MD 04/27/2019 Telephone Cardiology Robert Adkins Rx Concern/Question; MD Namita Talk To Nurse 04/26/2019 Surgery Surgery Dagoberto Luna LUMBAR EPIDURAL MD Tania STEROID INJECTION 04/26/2019 Anesthesia Event Surgery Genaro Glasgow CRNA Slann, Leonard J III, CHICKEN CLEANER 04/26/2019 Hospital Surgery Dagoberto Luna MD 04/26/2019 Orders Only Doctor Unassigned, [place] 04/21/2019 Telephone Cardiology Robert Adkins Lab Results; Orders MD Namita 04/20/2019 Food Products Sales Representative Visit Phlebotomy Cale Silevrman Hypopotassemia Vls-Lab 04/20/2019 [facility] Radiology Robert Adkins Encounter MD Namita 04/20/2019 [facility] Radiology Robert Adkins Encounter MD Namita 04/16/2019 Telephone Cardiology Robert Adkins LAB WORK MD Namita 04/13/2019 Food Products Sales Representative Visit Phlebotomy Robert Adkins Chronic diastolic MD Namita CHF (congestive 2, Adc Lab heart failure) 04/12/2019 Surgery Surgery Dagoberto Luna LUMBAR EPIDURAL MD Tania STEROID INJECTION 04/12/2019 Anesthesia Event Surgery Genrao Glasgow CRNA Slann, Leonard J III, CHICKEN CLEANER 04/12/2019 Hospital Surgery Dagoberto Luna MD 04/06/2019 Office Visit Cardiology Robert Adkins MD CHF (congestive heart failure) (Primary Dx) 04/06/2019 Refill Endocrinology Zhen Guillaume MD Refill Request & Metabolism 04/05/2019 Food Products Sales Representative Visit Phlebotomy Robert Adkins MD CHF (congestive 2, Adc Lab heart failure) 04/05/2019 Refill Endocrinology Zhen Guillaume MD Refill Request & Metabolism 04/01/2019 Telephone Cardiology Robert Adkins Assessment MD Namita 04/01/2019 Refill Cardiology Al Valiente Refill Request 03/29/2019 Surgery Surgery Dagoberto Luna LUMBAR EPIDURAL MD Tania STEROID INJECTION 03/29/2019 Anesthesia Event Surgery Genaro Glasgow CRNA 03/29/2019 Hospital Surgery Dagoberto Luna MD 03/24/2019 Office Visit Gastroenterology Bibiana, Abnormal liver enzymes ( Primary Dx); MD Ioana Iron deficiency anemia due to chronic blood loss; Tubular adenoma of colon 03/24/2019 Telephone Cardiology Robert Adkins Blood Pressure MD Namita 03/16/2019 Telephone Cardiology Robert Adkins Lab Results; LAB MD Namita WORK 03/12/2019 Food Products Sales Representative Visit Phlebotomy Robert Adkins MD CHF (congestive 2, Adc Lab heart failure) 03/12/2019 Orders Only Doctor Unassigned, [place] 03/12/2019 Telephone Cardiology Robert Adkins Pre-op Clearance MD Namita ([facility]) 03/11/2019 Refill Internal Medicine Lupe Refill Request Lilibeth Payne MD 03/10/2019 Refill Internal Medicine Lupe Refill Request Lilibeth Payne MD 03/09/2019 Food Products Sales Representative Visit Clinical Medical Dagoberto Luna Radiculopathy , Laboratory MD Tania unspecified spinal 1, Adc Lab region (Primary Dx) 03/09/2019 Food Products Sales Representative Visit Phlebotomy Robert Adkins Hypopotassemia MD Namita 2, Adc Lab 03/09/2019 Orders Only Doctor Unassigned, [place] 03/03/2019 Telephone Cardiology Robert Adkins LAB WORK; Lab MD Namita Results; Medication Dose Change 03/02/2019 Food Products Sales Representative Visit Phlebotomy Robert Adkins Acute on chronic diastolic congestive heart failure; MD Namita Hypopotassemia 2, Adc Lab 03/02/2019 Orders Only Doctor Unassigned, [place] 03/01/2019 Hospital Cardiac Ryder Fields MD PAF (paroxysmal atrial fibrillation) (Primary Dx); Encounter Electrophysiology Simi, Remote Bradycardia; Device Check At Artificial cardiac pacemaker Home - 02/26/2019 Nurse Visit Anti-coagulation Clinic Nat, Anticoagulation management encounter; Harley Other pulmonary embolism without acute cor pulmonale, unspecified chronicity; MD Fei ST elevation myocardial infarction involving right coronary artery Nurse, [facility] Anticoag 02/24/2019 Food Products Sales Representative Visit Clinical Medical Zhen Jones MD Secondary male Laboratory 1, Adc Lab hypogonadism 02/24/2019 Office Visit Endocrinology Diabetes Zhen Jones MD 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); & Metabolism Secondary male hypogonadism; Dyslipidemia; Essential hypertension; High serum aldosterone 02/24/2019 Orders Only Doctor Unassigned, [place] 02/24/2019 Telephone Cardiology Robert Adkins Results MD Namita 02/23/2019 Office Visit Internal Medicine Lupe, Other fatigue ( Primary Dx); Lilibeth Payne MD Vitamin B12 deficiency; Uric acid stone in urine; Chest pain, unspecified type; Skin problem 02/23/2019 Food Products Sales Representative Visit Phlebotomy Silvia Shaffer MD 2, Adc Lab 02/23/2019 Orders Only Doctor Unassigned, [place] 02/23/2019 Refill Internal Medicine Lupe, Refill Request Lilibeth Payne MD 02/19/2019 Telephone Cardiology Robert Adkins LAB WORK; Lab MD Namita Results 02/14/2019 Telephone Cardiology Sundar Novak, Abnormal Lab MBBS 02/13/2019 Emergency Emergency Medicine Amisha Toth (Primary J, DO Dx) 02/12/2019 Food Products Sales Representative Visit Phlebotomy Iggy Andrade MD 2, Adc Lab 02/12/2019 Orders Only Doctor Unassigned, [place] 02/09/2019 Office Visit Cardiology Robert Adkins Hypopotassemia (Primary Dx); MD Namita Chronic diastolic CHF (congestive heart failure); 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 02/09/2019 Emergency Emergency Medicine Kurt Nataarjan Fatigue, unspecified type (Primary Dx); MD Tania Hypokalemia; Uncontrolled type 2 diabetes mellitus with hyperglycemia 02/09/2019 Telephone Cardiology Robert Adkins Assessment MD Namita 02/08/2019 Telephone Cardiology Sundar Novak, Kory Lab MBBS 02/06/2019 Food Products Sales Representative Visit Clinical Medical Andrade, Hypouricemia ( Primary Dx); Laboratory Lilibeth Payne MD Need for prophylactic chemotherapy; 1, Adc Lab Chronic diastolic congestive heart failure 02/06/2019 Orders Only Doctor Unassigned, [place] 02/05/2019 Telephone Cardiology Robert Adkins Pre-Visit Planning; MD Namita Appointment from Last 3 Months Immunizations Name Administration [...] Sign Reading Time Taken Comments Blood Pressure 111/72 05/06/2019 12:28 PM SECURITY ARCHITECT Pulse 78 05/06/2019 12:28 PM SECURITY ARCHITECT Temperature 37.1 C (98.8 F) 05/05/2019 7:40 AM SECURITY ARCHITECT Respiratory Rate 18 05/06/2019 12:28 PM SECURITY ARCHITECT Oxygen Saturation 96% 05/05/2019 7:40 AM SECURITY ARCHITECT Inhaled Oxygen Concentration - - Weight 132.5 kg (292 lb) 05/06/2019 12:28 PM SECURITY ARCHITECT Height 177.8 cm (5' 10") 05/02/2019 5:53 PM SECURITY ARCHITECT Body Mass Index 41.9 05/02/2019 5:53 PM SECURITY ARCHITECT Plan of Treatment Date Type Specialty Care Team Description 05/07/2019 Nurse Visit Anti-coagulation Clinic Nurse, Christen Brown 05/13/2019 Office Visit Internal Medicine Lilibeth Andrade MD [address] [place] [address] Dr [address] [place] [address] [phone] 05/27/2019 Appointment Cardiac Electrophysiology Outpt-Simi, Pacemaker/Icd 06/01/2019 Office Visit Internal Medicine Lilibeth Andrade MD [address] [place] [address] Dr Lewis [address] [place] [address] [phone] 07/06/2019 Office Visit Internal Medicine Lilibeth Andrade MD [address] [place] [address] Dr Lewis [address] [place] [address] [phone] 07/13/2019 Office Visit Endocrinology Diabetes & JonesZhen MD Metabolism [address] [place] [address] [phone] 09/28/2019 Office Visit Cardiology Robert Adkins MD [address] [place] [address] [phone] [place], [place] [phone] 10/27/2019 Office Visit Pulmonary Disease Max Aguiar MD [address] [place] [address] Dr [address] [place] [address] [phone] 12/08/2019 Office Visit Ophthalmology Yariel Tineo MD [address] [place] [address]. [place] [address] Health Maintenance Due Date Last Done Comments Zoster Recombinant Vaccine 2019 (SHINGRIX) (1 of 2) HgA1C 10/31/2019 05/02/2019, 02/24/2019, 07/28/2018, Additional history exists EYE EXAM 11/20/2019 11/19/2018, 11/13/2017 URINE MICROALBUMIN 02/07/2020 02/06/2019, 01/19/2018, 08/20/2016 PNEUMOCOCCAL 0-64 YEARS 02/24/2020 Postponed from COMBINED SERIES (1 of 1 - 1975 (Patient PPSV23) Refused) FOOT EXAM 02/25/2020 02/24/2019, 02/24/2019, 09/22/2018, Additional history exists INFLUENZA VACCINE (#1) 2020 Postponed from 02/21/2019 (Patient Refused) LDL-C 05/02/2020 05/02/2019, 07/28/2018, 01/11/2018, Additional history exists CREATININE (SERUM) 05/04/2020 05/04/2019, 05/03/2019, 05/02/2019, Additional history exists COLONOSCOPY 04/22/2027 04/22/2017 DTaP,Tdap,and Td Vaccines 06/26/2027 06/26/2017, 03/19/2015 Postponed from (1 - Tdap) 06/27/2017 (Not Indicated) Implants Implanted Type Area Artist Relationship Manager Device Shelf Model / Identifier Expiration Serial / Date Lot Prolene Mesh MESH Right: Ethicon 12/20/2020 PMSK / Implanted: Qty: 1 on 07/04/2016 by Alfonso Martinez MD at [facility] [employer] PMSK / [id number] Pacemaker PACEMAKER Stent-06/24/2016 Implanted: 06/24/2016 (Quantity not on file) Procedures Procedure Name Priority Date/Time Associated Diagnosis Comments POCT GLUCOSE Routine 05/05/2019 Results for (AUTOMATED) 7:41 AM SECURITY ARCHITECT this procedure are in the results section. PROTHROMBIN TIME / Routine 05/05/2019 Results for INR 3:57 AM SECURITY ARCHITECT this procedure are in the results section. POCT GLUCOSE Routine 05/04/2019 Results for (AUTOMATED) 7:43 PM SECURITY ARCHITECT this procedure are in the results section. POCT GLUCOSE Routine 05/04/2019 Results for (AUTOMATED) 11:26 AM SECURITY ARCHITECT this procedure are in the results section. POCT GLUCOSE Routine 05/04/2019 Results for (AUTOMATED) 7:35 AM SECURITY ARCHITECT this procedure are in the results section. PROTHROMBIN TIME / Routine 05/04/2019 Results for INR 2:58 AM SECURITY ARCHITECT this procedure are in the results section. BASIC METABOLIC PANEL Routine 05/04/2019 Results for (NA, K, CL, CO2, 2:58 AM SECURITY ARCHITECT this procedure GLUCOSE, BUN, are in the CREATININE, CA) results section. POCT GLUCOSE Routine 05/03/2019 Results for (AUTOMATED) 7:41 PM SECURITY ARCHITECT this procedure are in the results section. POCT GLUCOSE Routine 05/03/2019 Results for (AUTOMATED) 4:27 PM SECURITY ARCHITECT this procedure are in the results section. POCT GLUCOSE Routine 05/03/2019 Results for (AUTOMATED) 11:27 AM SECURITY ARCHITECT this procedure are in the results section. ECHO ROUTINE Routine 05/03/2019 SOB (shortness of W/DOPPLER COLOR 11:25 AM SECURITY ARCHITECT breath) TROPONIN I Routine 05/03/2019 Results for 9:31 AM SECURITY ARCHITECT this procedure are in the results section. POCT GLUCOSE Routine 05/03/2019 Results for (AUTOMATED) 7:40 AM SECURITY ARCHITECT this procedure are in the results section. PROTHROMBIN TIME / Routine 05/03/2019 Results for INR 2:40 AM SECURITY ARCHITECT this procedure are in the results section. BASIC METABOLIC PANEL Routine 05/03/2019 Results for (NA, K, CL, CO2, 2:40 AM SECURITY ARCHITECT this procedure GLUCOSE, BUN, are in the CREATININE, CA) results section. TROPONIN I Routine 05/03/2019 Results for 2:40 AM SECURITY ARCHITECT this procedure are in the results section. POCT GLUCOSE Routine 05/02/2019 Results for (AUTOMATED) 8:41 PM SECURITY ARCHITECT this procedure are in the results section. TROPONIN I Routine 05/02/2019 Results for 8:36 PM SECURITY ARCHITECT this procedure are in the results section. XR CHEST 1 VW STAT 05/02/2019 SOB (shortness of Results for 3:39 PM SECURITY ARCHITECT breath) this procedure are in the results section. PROTHROMBIN TIME / STAT 05/02/2019 SOB (shortness of Results for INR 3:29 PM SECURITY ARCHITECT breath) this procedure are in the results section. LIPID PANEL Add-on 05/02/2019 Results for (33055)(TOTAL 3:27 PM SECURITY ARCHITECT this procedure CHOLESTEROL, are in the TRIGLYCERIDES, HDL) results section. THYROID STIMULATING Add-on 05/02/2019 Results for HORMONE 3:27 PM SECURITY ARCHITECT this procedure are in the results section. GLYCOSYLATED Add-on 05/02/2019 Results for HEMOGLOBIN (A1C) 3:27 PM SECURITY ARCHITECT this procedure are in the results section. CBC WITH DIFFERENTIAL STAT 05/02/2019 SOB (shortness of Results for 3:27 PM SECURITY ARCHITECT breath) this procedure are in the results section. N-TERMINAL PRO-BNP STAT 05/02/2019 SOB (shortness of Results for 3:27 PM SECURITY ARCHITECT breath) this procedure are in the results section. TROPONIN I STAT 05/02/2019 SOB (shortness of Results for 3:27 PM SECURITY ARCHITECT breath) this procedure are in the results section. HEPATIC FUNCTION STAT 05/02/2019 SOB (shortness of Results for PANEL (09328) 3:27 PM SECURITY ARCHITECT breath) this procedure (ALB,T.PRO,BILI are in the T,BU/BC,ALT,AST,ALK results PHOS) section. BASIC METABOLIC PANEL STAT 05/02/2019 SOB (shortness of Results for (NA, K, CL, CO2, 3:27 PM SECURITY ARCHITECT breath) this procedure GLUCOSE, BUN, are in the CREATININE, CA) results section. CBC WITH DIFFERENTIAL Routine 05/02/2019 SOB (shortness of Results for 3:27 PM SECURITY ARCHITECT breath) this procedure are in the results section. EKG-12 LEAD Routine 05/02/2019 3:26 PM SECURITY ARCHITECT EKG-12 LEAD STAT 05/02/2019 3:22 PM SECURITY ARCHITECT CONSENT/REFUSAL FOR Routine 05/02/2019 DIAGNOSIS AND 3:16 PM SECURITY ARCHITECT TREATMENT PATIENT AGREEMENTS Routine 05/02/2019 AND CONTRACTS 12:01 AM SECURITY ARCHITECT HOSPITAL ADMISSION Routine 05/02/2019 12:01 AM SECURITY ARCHITECT HOSPITAL ADM - MISC Routine 05/02/2019 12:01 AM SECURITY ARCHITECT FL TIME OR Routine 04/26/2019 Pain Results for (NON-REPORTABLE) 8:28 AM SECURITY ARCHITECT this procedure are in the results section. LUMBAR EPIDURAL Level 5 04/26/2019 Back pain STEROID INJECTION (greater than 8:00 AM SECURITY ARCHITECT 5 days) POCT GLUCOSE Routine 04/26/2019 Results for (AUTOMATED) 6:46 AM SECURITY ARCHITECT this procedure are in the results section. POCT GLUCOSE(AGE Routine 04/26/2019 Results for >30DAYS) 6:46 AM SECURITY ARCHITECT this procedure are in the results section. DAY SURGERY - ADC Routine 04/26/2019 12:01 AM SECURITY ARCHITECT NM CARDIAC INFARCTION Routine 04/20/2019 Chronic diastolic Results for SPECT 12:14 PM CDT CHF (congestive this procedure heart failure) are in the results section. BASIC METABOLIC PANEL Routine 04/20/2019 Hypopotassemia Results for (NA, K, CL, CO2, 12:09 PM CDT this procedure GLUCOSE, BUN, are in the CREATININE, CA) results section. IMMUNOFIXATION, URINE Routine 04/13/2019 Chronic diastolic Results for FOR PANEL 8:33 AM CDT CHF (congestive this procedure heart failure) are in the results section. IMMUNOFIXATION, SERUM Routine 04/13/2019 Chronic diastolic Results for 8:30 AM CDT CHF (congestive this procedure heart failure) are in the results section. MAGNESIUM Routine 04/13/2019 Chronic diastolic Results for 8:30 AM CDT CHF (congestive this procedure heart failure) are in the results section. BASIC METABOLIC PANEL Routine 04/13/2019 Chronic diastolic Results for (NA, K, CL, CO2, 8:30 AM CDT CHF (congestive this procedure GLUCOSE, BUN, heart failure) are in the CREATININE, CA) results section. IMMUNOFIXATION, SERUM Routine 04/13/2019 Chronic diastolic Results for 8:30 AM CDT CHF (congestive this procedure heart failure) are in the results section. KAPPA-LAMBDA QUANT. Routine 04/13/2019 Chronic diastolic Results for FLC WITH RATIO 8:30 AM CDT CHF (congestive this procedure heart failure) are in the results section. AGREEMENTS Routine 04/13/2019 AUTHORIZATIONS AND 12:01 AM CDT IRREVOCABLE ASSIGNMENTS (FORM 2001) FL TIME OR Routine 04/12/2019 Pain management Results for (NON-REPORTABLE) 9:05 AM CDT this procedure are in the results section. LUMBAR EPIDURAL Level 5 04/12/2019 Back pain STEROID INJECTION (greater than 7:16 AM CDT 5 days) POCT GLUCOSE Routine 04/12/2019 Results for (AUTOMATED) 6:19 AM CDT this procedure are in the results section. POCT GLUCOSE(AGE Routine 04/12/2019 Results for >30DAYS) 6:19 AM CDT this procedure are in the results section. DAY SURGERY - ADC Routine 04/12/2019 12:01 AM CDT N-TERMINAL PRO-BNP Routine 04/05/2019 Chronic diastolic Results for 8:24 AM CDT CHF (congestive this procedure heart failure) are in the results section. AGREEMENTS Routine 04/05/2019 AUTHORIZATIONS AND 12:01 AM CDT IRREVOCABLE ASSIGNMENTS (FORM 2001) FL TIME Routine 03/29/2019 Pain management Results [...] 12:01 AM CDT IRREVOCABLE ASSIGNMENTS (FORM 2000) BASIC METABOLIC PANEL Routine 03/02/2019 Acute on chronic Results for (NA, K, CL, CO2, 10:26 AM CDT diastolic congestive this procedure GLUCOSE, BUN, heart failure are in the CREATININE, CA) Hypopotassemia results section. AGREEMENTS Routine 03/02/2019 AUTHORIZATIONS AND 12:01 AM CDT IRREVOCABLE ASSIGNMENTS (FORM 2001) PACEMAKER DEVICE Routine 03/01/2019 CHECK 2:00 AM CDT POCT Routine 02/26/2019 Other pulmonary Results for [...] ASSIGNMENTS (FORM 2001) CBC WITH DIFFERENTIAL STAT 02/13/2019 Weakness Results [...] PANEL STAT 02/09/2019 Fatigue, unspecified Results for (70230) 9:51 AM CDT type this procedure are [...] METABOLIC PANEL Routine 02/06/2019 Hypouricemia Results for (28398) 9:01 AM CDT Need for this procedure [...] results section. ZINC, SERUM Routine 02/06/2019 Other [facility] Results for 9:01 AM CDT (current) drug this procedure therapy are in the results section. HIGH SENSITIVITY CRP Routine 02/06/2019 Other coil connector repairer Results for 9:01 AM CDT (current) drug this procedure therapy are in the results section. HOMOCYSTEINE Routine 02/06/2019 Other coil connector repairer Results for 9:01 AM CDT (current) drug this procedure therapy are in the results section. FOLATE Routine 02/06/2019 Other coil connector repairer Results for 9:01 AM CDT (current) drug this procedure therapy are in the results section. VITAMIN D, 25-OH Routine 02/06/2019 Other coil connector repairer Results for 9:01 AM CDT (current) drug this procedure therapy are in the results section. VITAMIN B12, LEVEL Routine 02/06/2019 Other coil connector repairer Results for 9:01 AM CDT (current) drug this procedure therapy are in the results section. VITAMIN B6, PLASMA Routine 02/06/2019 Other coil connector repairer Results for 9:01 AM CDT (current) drug this procedure therapy are in the results section. VITAMIN B1 Routine 02/06/2019 Other coil connector repairer Results for (THIAMINE), WHOLE 9:01 AM CDT [...] 12:01 AM CDT IRREVOCABLE ASSIGNMENTS (FORM 2001) from Last 3 Months Results POCT GLUCOSE (AUTOMATED) (05/05/2019 7:41 AM SECURITY ARCHITECT)Only the most recent of12 resultswithin the time period is included. POCT GLU 182 (H) 70 - 110 mg/dL [facility] LABORATORY Specimen Blood Performing Organization Address [facility] [place] Phone Number [facility] CLIA: [id number], [address] [place] [address] PROTHROMBIN TIME / INR (05/05/2019 3:57 AM SECURITY ARCHITECT)Only the most recent of4 resultswithin the time period is included. PROTIME PATIENT 20.9 (H) 12.0 - 14.7 [facility] LABORATORY INR 1.9Comment: Normal [facility] INR <1.1; Warfarin [facility] Therapeutic range LABORATORY 2.0 to 3.0 or 2.5 to 3.5, depending upon the indications. Specimen Blood - ARM, RIGHT Performing Organization Address [facility] [place] Phone Number [facility] CLIA: [id number], [address] [place] [address] BASIC METABOLIC PANEL (NA, K, CL, CO2, GLUCOSE, BUN, CREATININE, CA) (2018 2:58 AM SECURITY ARCHITECT)Only the most recent of11 resultswithin the time period is included. NA 135 135 - 145 [facility] mmol/L [facility] LABOR[facility]ORY K 4.5 3.5 - 5.0 [facility] mmol/L [facility] LABOR[facility] CL 98 98 - 108 mmol/L [facility] CO2 TOTAL 29 23 - 31 mmol/L [facility] LABOR[facility]ORY AGAP 8 2 - 16 [facility] LAB[facility] BUN 24 (H) 7 - 23 mg/dL [facility] LABOR[facility]ORY GLUCOSE 268 (H) 70 - 110 mg/dL [facility] LABOR[facility]ORY CREATININE 1.29 (H) 0.60 - 1.25 [facility] mg/dL HOSPITAL LABORATORY CALCIUM 9.4 8.6 - 10.6 [facility] mg/dL HOSPITAL LABORATORY eGFR Calculation 59.0 mL/min/1.73m2 [facility] (Non- [facility] LABORATORY Algerian) eGFR Calculation 71.5 mL/min/1.73m2 [facility] () [facility] LABORATORY Specimen Blood - ARM, RIGHT Narrative Performed At Association of Glomerular Filtration Rate (GFR) [facility] LABORATORY and Staging of Kidney Disease* [...] tests). Performing Organization Address City/State/Zipcode Phone Number [facility] CLIA: [id number], [address] [place] [address] ECHO ROUTINE W/DOPPLER COLOR (05/03/2019 11:25 AM SECURITY ARCHITECT) Specimen Performing Organization Address City/[facility] [place] Phone Number ECHO TROPONIN I (05/03/2019 9:31 AM SECURITY ARCHITECT)Only the most recent of5 resultswithin the time period is included. TROPONIN I 0.003 <=0.034 ng/mL [facility] LABORATORY Specimen Blood - ARM, RIGHT Narrative Performed At Equal or Less than 0.034 ng/ml---Normal [facility] LABORATORY Note: Cardiac troponin begins to [...] patient's use of biotin. Performing Organization Address [facility]/Zipcode Phone Number [facility] CLIA: [id number], [address] [place] [address] Chest 1 View (05/02/2019 3:39 PM SECURITY ARCHITECT) Specimen Impressions Performed At PACS/VR/DOSE No acute cardiopulmonary abnormality. Walter Crane MD., have reviewed this study and agree with the above report. Narrative Performed At EXAM: XR CHEST 1 VW PACS/VR/DOSE HISTORY: sob COMPARISON: X-ray 11/07/2018 TECHNIQUE: Single AP view radiograph of the chest FINDINGS: Left chest wall pacemaker with leads projecting over the right atrium and right ventricle. The lungs are clear. No focal consolidation, pleural effusion or pneumothorax is seen. Heart remains mildly enlarged. No acute bony abnormality. Procedure Note [facility], Radiant Results Inft User - 05/02/2019 4:49 PM SECURITY ARCHITECT EXAM: XR CHEST 1 VW HISTORY: sob COMPARISON: X-ray 11/07/2018 TECHNIQUE: Single AP view radiograph of the chest FINDINGS: Left chest wall pacemaker with leads projecting over the right atrium and right ventricle. The lungs are clear. No focal consolidation, pleural effusion or pneumothorax is seen. Heart remains mildly enlarged. No acute bony abnormality. IMPRESSION No acute cardiopulmonary abnormality. Walter Crane MD., have reviewed this study and agree with the above report. Performing Organization Address [facility]/Zipcode Phone Number PACS/VR/DOSE CBC WITH DIFFERENTIAL (05/02/2019 3:27 PM SECURITY ARCHITECT)Only the most recent of5 resultswithin the time period is included. WBC 14.69 (H) 4.20 - 10.70 [facility] 10*3/L [facility] LABORATORY RBC 6.39 (H) 4.26 - 5.52 [facility] 10*6/L [facility] LABORATORY HGB 15.5 12.2 - 16.4 [facility] g/dL HOSPITAL LABORATORY HCT 50.0 (H) 38.4 - 49.3 % [facility] LABOR[facility]ORY MCV 78.2 (L) 81.7 - 95.6 fL [facility] LABOR[facility]ORY MCH 24.3 (L) 26.1 - 32.7 pg [facility] LABORATORY MCHC 31.0 (L) 31.2 - 35.0 [facility] g/dL HOSPITAL LABORATORY RDW-SD 49.2 38.5 - 51.6 fL [facility] LABORATORY RDW-CV 18.9 (H) 12.1 - 15.4 % [facility] LABORATORY PLT 271 150 - 328 [facility] 10*3/L HOSPITAL LABORATORY MPV 9.4 (L) 9.8 - 13.0 fL [facility] LABOR[facility] NRBC/100 WBC 0.0 0.0 - 10.0 /100 [facility] WBCs [facility] LABOR[facility] NRBC x10^3 <0.01 10*3/L [facility]ORY GRAN MAT (NEUT) % 80.0 % [facility] LABOR[facility] IMM GRAN % 0.60 % [facility] LAB[facility] LYMPH % 12.9 % [facility] LABOR[facility]ORY MONO % 5.9 % [facility] LABOR[facility] EOS % 0.3 % [facility] LABOR[facility] BASO % 0.3 % [facility] LABORATORY GRAN MAT x10^3(ANC) 11.74 (H) 1.99 - 6.95 [facility] 10*3/uL HOSPITAL LABORATORY IMM GRAN x10^3 0.09 (H) 0.00 - 0.06 [facility] 10*3/uL HOSPITAL LABORATORY LYMPH x10^3 1.90 1.09 - 3.23 [facility] 10*3/uL HOSPITAL LABORATORY MONO x10^3 0.86 0.36 - 1.02 [facility] 10*3/uL HOSPITAL LABORATORY EOS x10^3 0.05 (L) 0.06 - 0.53 [facility] 10*3/uL HOSPITAL LABORATORY BASO x10^3 0.05 0.01 - 0.09 [facility] 10*3/uL HOSPITAL LABORATORY Specimen Blood - VENOUS Performing Organization Address City/State/Zipcode Phone Number [facility] CLIA: [id number], [address] [place] [address] N-TERMINAL PRO-BNP (05/02/2019 3:27 PM SECURITY ARCHITECT)Only the most recent of4 resultswithin the time period is included. NT-proBNP 49 <=125 pg/mL [facility] LABORATORY Specimen Blood - VENOUS Narrative Performed At Biotin has been reported to cause a negative [facility] LABORATORY bias, interpret results relative to patient's use of biotin. Performing Organization Address City/[facility] [place] Phone Number [facility] CLIA: [id number], [address] [place] [address] Glycosylated Hemoglobin (A1C) (05/02/2019 3:27 PM SECURITY ARCHITECT) HGB A1C 8.6 (H) 4.0 - 6.0 % NGSP [facility] LABORATORY Specimen Blood - VENOUS Narrative Performed At %A1C (NGSP) Interpretation (ADA) [facility] LABORATORY 4.8-5.6 Normal or (Non-Diabetic Range) 5.7-6.4 Increased Risk (Pre-Diabetic) >6.5 Diabetes Indicated Performing Organization Address [facility] [place] Phone Number [facility] CLIA: [id number], [address] [place], [place] [address] LABORATORY [address] LIPID PANEL ([id number])(TOTAL CHOLESTEROL, TRIGLYCERIDES, HDL) (05/02/2019 3:27 PM SECURITY ARCHITECT) CHOL 204 (H) 120 - 200 mg/dL [facility] LABORATORY HDL 51 >40 mg/dL [facility] LABORATORY HDLC RATIO 4.0 <=5.0 [facility] LABORATORY TRIG 156 30 - 170 mg/dL [facility] LABORATORY LDL CHOL 122 <=160 mg/dL [facility] LABORATORY VLDL 31 5 - 60 mg/dL [facility] LABORATORY Specimen Blood - VENOUS Performing Organization Address [facility] [place] Phone Number [facility] CLIA: [id number], [address] [place] [address] Hepatic Function Panel (ALB, T.PRO, BILI T, BU/BC, ALT, AST, ALK PHOS) (2018 3:27 PM SECURITY ARCHITECT) TOTAL BILI 0.5 0.1 - 1.1 mg/dL [facility] LABORATORY BILI UNCON 0.3 0.1 - 1.1 mg/dL [facility] LABORATORY BILI CONJ 0.0 0.0 - 0.3 mg/dL [facility] LABORATORY T PROTEIN 8.6 (H) 6.3 - 8.2 g/dL [facility] LABORATORY ALBUMIN 4.4 3.5 - 5.0 g/dL [facility] LABORATORY ALK PHOS 145 (H) 34 - 122 U/L [facility] LABORATORY ALTv 33 5 - 50 U/L [facility] LABOR[facility] AST(SGOT) 29 13 - 40 U/L [facility] LABORATORY Specimen Blood - VENOUS Performing Organization Address [facility] [place] Phone Number [facility] CLIA: [id number], [address] [place], [place] [address] LABORATORY [address] THYROID STIMULATING HORMONE (05/02/2019 3:27 PM SECURITY ARCHITECT) Pathologist [facility] TSH 2.69Comment: Biotin 0.45 - 4.70 [facility] has been reported [facility] LABORATORY to cause a negative bias, interpret results relative to patient's use of biotin. Specimen Blood - VENOUS Performing Organization Address [facility]/Zipcode Phone Number [facility] CLIA: [id number], [address] [place], [place] [address] LABORATORY [address] EKG-12 LEAD (05/02/2019 3:26 PM SECURITY ARCHITECT) Specimen Performing Organization Address City/State/Zipcode Phone Number [facility] CONSENT/REFUSAL FOR DIAGNOSIS AND TREATMENT (05/02/2019 3:16 PM SECURITY ARCHITECT)Only the most recent of4 resultswithin the time period is included. Specimen Performing Organization Address City/State/Zipcode Phone Number [facility] PATIENT AGREEMENTS AND CONTRACTS (05/02/2019 12:01 AM SECURITY ARCHITECT) Specimen Performing Organization Address City/State/Zipcode Phone Number [facility] HOSPITAL ADMISSION (05/02/2019 12:01 AM SECURITY ARCHITECT) Specimen Performing Organization Address City/State/Zipcode Phone Number [facility] HOSPITAL ADM - MISC (05/02/2019 12:01 AM SECURITY ARCHITECT) Specimen Performing Organization Address City/State/Zipcode Phone Number [facility] FL TIME OR (NON-REPORTABLE) (04/26/2019 8:28 AM SECURITY ARCHITECT)Only the most recent of2 resultswithin the time period is included. Specimen Narrative Performed At These images do not require a Radiology diagnostic report. PACS Performing Organization Address City/State/Zipcode Phone Number PACS POCT Glucose (04/26/2019 6:46 AM SECURITY ARCHITECT)Only the most recent of3 resultswithin the time period is included. POCT Glu (age>30days) 150 (A) 70 - 110 mg/dL Specimen Blood - CAPILLARY DAY SURGERY - ADC (04/26/2019 12:01 AM SECURITY ARCHITECT) Specimen Performing Organization Address City/State/Zipcode Phone Number HIM NM CARDIAC INFARCTION SPECT (04/20/2019 12:14 PM CDT) Specimen Impressions Performed At PACS/VR/DOSE Findings not suggestive of TTR amyloidosis. I, Jhony Bowers MD., have reviewed this study and agree with the above report. Narrative Performed At * * * * * * * * ORIGINAL REPORT * * * * * * * * PACS/VR/DOSE EXAM: NM CARDIAC INFARCTION SPECT HISTORY: 49-year-old male with suspected Amyloidosis, needs a PYP scan for ATTR. COMPARISON: None. TECHNIQUE: Patient was injected with 20.4 mCi technetium 99m pyrophosphate intravenously. Following approximately 3 hours delay, planar anterior, left anterior oblique, and lateral images were acquired. SPECT of the chest was subsequently performed. ARUN's were placed over the heart and right chest to calculate H/CL ratio. FINDINGS: Semiquantitative score (visual comparison of cardiac to chest/background uptake: Grade 1. H/CL ratio: 1.3. Physiologic uptake seen in bones and kidneys. Procedure Note [facility], Radiant Results Inft User - 04/21/2019 2:42 PM CDT * * * * * * * * ORIGINAL REPORT * * * * * * * * EXAM: NM CARDIAC INFARCTION SPECT HISTORY: 49-year-old male with suspected Amyloidosis, needs a PYP scan for ATTR. COMPARISON: None. TECHNIQUE: Patient was injected with 20.4 mCi technetium 99m pyrophosphate intravenously. Following approximately 3 hours delay, planar anterior, left anterior oblique, and lateral images were acquired. SPECT of the chest was subsequently performed. ARUN's were placed over the heart and right chest to calculate H/CL ratio. FINDINGS: Semiquantitative score (visual comparison of cardiac to chest/background uptake: Grade 1. H/CL ratio: 1.3. Physiologic uptake seen in bones and kidneys. IMPRESSION Findings not suggestive of TTR amyloidosis. I, Jhony Bowers MD., have reviewed this study and agree with the above report. Performing Organization Address City/[facility] [place] Phone Number PACS/VR/DOSE Immunofixation, Urine (04/13/2019 8:33 AM CDT) ALB U YANNI Negative [facility] LABORATORY SERVICES Specimen Urine - URINE, CLEAN CATCH Performing Organization Address [facility] [place] Phone Number [facility] LABORATORY SERVICES CLIA: [id number], [address] [place] [address] [phone] [facility] IMMUNOFIXATION, SERUM (04/13/2019 8:30 AM CDT) [facility] T PROTEIN 7.7 6.3 - 8.2 g/dL [facility] LABORATORY SERVICES ALBUMIN 3.8 3.5 - 5.0 g/dL [facility] SERVICES IgG 1,630 (H) 636-1,600 mg/dL [facility] SERVICES IgA 565 (H) 70 - 312 mg/dL [facility]OR[facility] SERVICES IgM 235 56 - 352 mg/dL [facility] LABORAT[facility] SERVICES YANNI INTERP Marked polyclonal increase in serum IgA. [facility] LABORATORY Serum IgG at the upper limit of normal. SERVICES Normal urine protein profile. No M-spike present in serum or urine. Specimen Blood Narrative Performed At Performing Organization Address [facility] [place] Phone Number [facility] SERVICES CLIA: [id number], [address] [place] [address] [phone] [facility] [place]-Lambda Quant. FLC with Ratio (04/13/2019 8:30 AM CDT) [place] Qnt Free 3.15 (H) 0.33 - 1.94 [facility] mg/dL Lambda Qnt Free 1.88 0.57 - 2.63 [facility] mg/dL [place]/Lambda Free 1.68 (H) 0.26 - 1.65 [facility] Ratio Comment: Performed by [facility], [address] [place] [address],[place] [id number] [email or web address], Piyush Price MD, Lab. Director Specimen Blood Performing Organization Address City/State/Zipcode Phone Number [facility] [address] [place] [address] MAGNESIUM (04/13/2019 8:30 AM CDT)Only the most recent of7 resultswithin the time period is included. MAGNESIUM 2.1 1.7 - 2.4 mg/dL [facility] LABORATORY Specimen Blood Performing Organization Address City/State/Zipcode Phone Number [facility] CLIA: [id number], [address] [place] [address] AGREEMENTS AUTHORIZATIONS AND IRREVOCABLE ASSIGNMENTS (FORM 2001) (04/13/2019 12 :01 AM CDT)Only the most recent of8 resultswithin the time period is included. Specimen Performing Organization Address City/State/Zipcode Phone Number [facility] DAY SURGERY - ADC (04/12/2019 12:01 AM CDT) Specimen Performing Organization Address City/State/Zipcode Phone Number [facility] FL TIME (NON-REPORTABLE) (03/29/2019 8:20 AM CDT) Specimen Narrative Performed At These images do not require a Radiology diagnostic report. PACS Performing Organization Address City/State/Zipcode Phone Number PACS DAY SURGERY - ADC (03/29/2019 12:01 AM CDT) Specimen Performing Organization Address City/State/Zipcode Phone Number [facility] MEDICAL RELEASE/CLEARANCE FORMS (03/18/2019 12:01 AM CDT)Only the most recent of2 resultswithin the time period is included. Specimen Performing Organization Address City/State/Zipcode Phone Number [facility] PHYSICIAN ORDERS (03/09/2019 12:01 AM CDT)Only the most recent of2 resultswithin the time period is included. Specimen Performing Organization Address City/State/Zipcode Phone Number HIM PACEMAKER DEVICE CHECK (03/01/2019 2:00 AM CDT) Specimen Performing Organization Address City/State/Zipcode Phone Number EP POCT PT/INR(COAGUCHEK) (02/26/2019) POCT PT/INR 3.3 (A) 0.8 - 1.4 INR POCT PT/SEC 39.8 SEC Specimen Blood - CAPILLARY TESTOSTERONE (02/24/2019 4:17 PM CDT) TESTOST 150.0 132.0 - 813.0 ng/dL [facility] LABORATORY SERVICES Specimen Blood Narrative Performed At Normal Ranges [facility] LABORAT[facility] SERVICES Adult Female: 6-77 ng/dL Adult Male <50 years: 132-813 ng/dL Adult Male >50 years: 72-623 ng/dL Females on Control Pills may have higher results. Obese patients may have lower results. Biotin has been reported to cause a negative bias, interpret results relative to patient's use of biotin. Performing Organization Address City/State/Zipcode Phone Number [facility] LABORATORY SERVICES CLIA: [id number], [address] [place] [address] [facility] PROSTATIC SPECIFIC ANTIGEN SCREEN (02/24/2019 4:17 PM CDT) [facility] PSA 0.25 <=4.00 ng/mL [facility] LABORATORY Specimen Blood Narrative Performed At Biotin has been reported to cause a negative [facility] LABORATORY bias, interpret results relative to patient's use of biotin. Performing Organization Address City/State/Zipcode Phone Number [facility] CLIA: [id number], [address] [place] [address] PATIENT QUESTIONNAIRE (02/24/2019 12:01 AM CDT) Specimen Performing Organization Address City/State/Zipcode Phone Number HIM POCT HEMOGLOBIN A1C TEST (02/24/2019) [facility] POCT HBA1C 8.2 4 - 6 % Specimen Blood - CAPILLARY Urinalysis (02/13/2019 2:17 AM CDT)Only the most recent of2 resultswithin the time period is included. [facility] APPEARANCE Clear Clear [facility] LABORATORY COLOR Yellow Yellow [facility] LABOR[facility]ORY PH 6.5 4.8 - 8.0 [facility] LABORATORY SP GRAVITY 1.010 1.003 - 1.030 [facility] LABORATORY GLU U QUAL Negative Negative [facility] LABOR[facility] BLOOD Negative Negative [facility] LABOR[facility]ORY KETONES Negative Negative [facility] PROTEIN Negative Negative [facility] UROBILIN 0.2 mg/dL 0-1.0 mg/dL [facility] LABORATORY BILIRUBIN Negative Negative [facility] LAB[facility] NITRITE Negative Negative [facility] LABOR[facility]ORY LEUK TRE Negative Negative [facility] LAB[facility]ORY RBC/HPF 1 0 - 3 HPF [facility] LABOR[facility]ORY WBC/HPF 0 0 - 5 HPF [facility] LABORATORY BACTERIA Negative Negative [facility] LABORATORY Specimen Urine - URINE, CLEAN CATCH Performing Organization Address City/[facility]/Zipcode Phone Number [facility] CLIA: [id number], [address] [place] [address] EKG-12 LEAD (02/13/2019 1:58 AM CDT) Specimen Performing Organization Address City/State/Zipcode Phone Number [facility] NOTICE OF PRIVACY PRACTICES (02/13/2019 1:37 AM CDT)Only the most recent of2 resultswithin the time period is included. Specimen Performing Organization Address City/[facility]/Zipcode Phone Number [facility] EMERGENCY SERVICES AGREEMENTS AND AUTHORIZATIONS (02/13/2019 12:01 AM CDT)Only the most recent of2 resultswithin the time period is included. Specimen Performing Organization Address [facility] [place] Phone Number [facility] COMP. METABOLIC PANEL ([id number]) (02/09/2019 9:51 AM CDT)Only the most recent of2 resultswithin the time period is included. NA 136 135 - 145 [facility] mmol/L [facility] LABORATORY K 3.2 (L) 3.5 - 5.0 [facility] mmol/L [facility] LABOR[facility] CL 91 (L) 98 - 108 mmol/L [facility] LABOR[facility]ORY CO2 TOTAL 33 (H) 23 - 31 mmol/L [facility] LABORATORY AGAP 12 2 - 16 [facility] LAB[facility] BUN 23 7 - 23 mg/dL [facility] LABORATORY GLUCOSE 248 (H) 70 - 110 mg/dL [facility] LABOR[facility]ORY CREATININE 1.03 0.60 - 1.25 [facility] mg/dL [facility] LAB[facility] TOTAL BILI 0.5 0.1 - 1.1 mg/dL [facility] LABOR[facility]ORY CALCIUM 9.2 8.6 - 10.6 [facility] mg/dL [facility] LAB[facility] T PROTEIN 8.5 (H) 6.3 - 8.2 g/dL [facility] LABOR[facility]ORY ALBUMIN 4.4 3.5 - 5.0 g/dL [facility] LABORATORY ALK PHOS 111 34 - 122 U/L [facility] LABOR[facility]ORY ALT(SGPT) 24 9 - 51 U/L [facility] LAB[facility]ORY AST(SGOT) 46 (H) 13 - 40 U/L [facility] LABORATORY eGFR Calculation 76.8 mL/min/1.73m2 [facility] ([facility] LABORATORY Algerian) eGFR Calculation 93.0 mL/min/1.73m2 [facility] () [facility] LABORATORY Specimen Blood - ARM, RIGHT Narrative Performed At Association of Glomerular Filtration Rate (GFR) [facility] LABORATORY and Staging of Kidney Disease* [...] tests). Performing Organization Address City/State/Zipcode Phone Number [facility] CLIA: [id number], [address] [place] [address] [facility] Hospital [address] EKG-12 LEAD (02/09/2019 9:41 AM CDT) Specimen Performing Organization Address City/State/Zipcode Phone Number [facility] VITAMIN B1 (THIAMINE), WHOLE [...] measured. Test developed and characteristics determined by [facility]. See Compliance Statement B: [facility]/CS Performed by [facility], [address] [place] [address] [email or web address], Piyush Price MD, Lab. Director Specimen Blood Performing Organization Address [facility] [place] Phone Number [facility] [address] [place] [address] CREATININE, URINE RANDOM (02/06/2019 9:01 AM CDT) CREAT U 63.2 mg/dL [facility] [facility] Specimen Urine - URINE, CLEAN CATCH Performing Organization Address [facility], [place] Phone Number [facility] CLIA: [id number], [address] [place] [address] VITAMIN D, 25-OH (02/06/2019 9:01 AM CDT) VIT D 25OH 60 25 - 80 ng/mL [facility] 25-Hydroxy D3 60.2 ng/mL [facility] 25-Hydroxy D2 <2.5 ng/mL [facility] Specimen Blood Narrative Performed At Test developed and characteristics determined by [facility] Laboratory Services. Performing Organization Address [place]/[facility], [place] Phone Number [facility] CLIA: [id number], [address] [place] [address] [id number] [facility] HOMOCYSTEINE (02/06/2019 9:01 AM CDT) Homocysteine 9.5 6.6 - 14.8 umol/L [facility] Specimen Blood Performing Organization Address [facility], [place] Phone Number [facility] CLIA: [id number], [address] [place], [place] [address] [phone] [facility] HIGH SENSITIVITY CRP (02/06/2019 9:01 AM CDT) HS CRP 4.75 (H) <0.74 mg/dL [facility] Specimen Blood Performing Organization Address [facility], [place] Phone Number [facility] CLIA: [id number], [address] [place], [place] [phone] [facility] URINE CULTURE (02/06/2019 9:01 AM CDT) URINE CULTURE No aerobic organisms [facility] isolated SERVICES Specimen Urine - URINE, CLEAN CATCH Performing Organization Address [facility], [place] Phone Number [facility] CLIA: [id number], [address] [place] [address] [facility] MICROALBUMIN URINE (02/06/2019 9:01 AM CDT) CREAT U 62.6 mg/dL [facility] MICROALB U 3 0 - 45 ug/mL [facility] MICROAL/CR 542 0-3,500 ug/mmol [facility] creatinine SERVICES Specimen Urine - URINE, CLEAN CATCH Performing Organization Address [facility] [place] Phone Number [facility] CLIA: [id number], [address] [place] [address] [phone] [facility] TOTAL IRON BINDING CAPACITY (02/06/2019 9:01 AM CDT) TIBC 314 250 - 410 ug/dL [facility] % FE SAT 17 (L) 20 - 50 % [facility] Specimen Blood Performing Organization Address [facility] [place] Number [facility] CLIA: [id number], [address] [place] [address] FOLATE (02/06/2019 9:01 AM CDT) FOLATE SER 15.0 3.0 - 20.0 ng/mL [facility] Specimen Blood Performing Organization Address [facility] [place] Phone Number [facility] CLIA: [id number], [address] [place] [address] [facility] VITAMIN B12, LEVEL (02/06/2019 9:01 AM CDT) VIT B12 543 240 - 930 pg/mL [facility] Specimen Blood Narrative Performed At Biotin has been reported to cause a positive bias, interpret [facility] results relative to patient's use of biotin. Performing Organization Address [place]/[facility] [place] Phone Number [facility] CLIA: [id number], [address] [place] [address] [facility] IRON (02/06/2019 9:01 AM CDT) IRON 52 50 - 160 ug/dL [facility] Specimen Blood Performing Organization Address City/State/Zipcode Phone Number [facility] CLIA: [id number], [address] [place] [address] FERRITIN SERUM (02/06/2019 9:01 AM CDT) FERRITIN 66.3 18.0 - 464.0 ng/mL [facility] Specimen Blood Narrative Performed At Biotin has been reported to cause a negative [facility] bias, interpret results relative to patient's use of biotin. Performing Organization Address City/State/[facility], [place] Phone Number [facility] CLIA: [id number], [address] [place] [address] URIC ACID (02/06/2019 9:01 AM CDT) URIC ACID 7.2 3.6 - 8.0 mg/dL [facility] Specimen Blood Performing Organization Address [facility], [place] Phone Number [facility] CLIA: [id number], [address] [place] [address] VITAMIN B6, PLASMA (02/06/2019 9:01 AM CDT) VIT B6 154.9 (H) 20.0 - 125.0 [facility] Comment: nmol/L INTERPRETIVE INFORMATION: Vitamin B6 (Pyridoxal 5-Phosphate) Pyridoxal 5'-phosphate measured in a specimen collected following an 8-hour or overnight fast accurately indicates vitamin B6 nutritional status. Non-fasting specimen concentration reflects recent vitamin intake. Test developed and characteristics determined by [facility]. See Compliance Statement B: [place]/CS Performed by [facility], [address] [place] [address] [email or web address], Piyush Price MD, Lab. Director Specimen Blood Performing Organization Address [facility], [place] Phone Number [facility] [address] [place] [address] ZINC, SERUM (02/06/2019 9:01 AM CDT) ZINC 52.1 (L) 60.0 - 120.0 [place] Comment: ug/dL INTERPRETIVE INFORMATION: Zinc, Serum or [...] absorption. Test developed and characteristics determined by [facility]. See Compliance Statement B: [place]/CS Performed by [facility], [address] [place] [address] [email or web address], Piyush Price MD, Lab. Director Specimen Blood Performing Organization Address City/State/Zipcode Phone Number [facility] [address] [place] [address] from Last 3 Months Insurance Payer Benefit Plan / Subscriber ID Effective Phone Address Type Group Dates [facility] [id number] 2017-[employer] [phone] [facility] [facility] [employer] [facility] [employer] [phone] [place] [address] (Home) [place] [address] Advance Directives Name Relationship Healthcare Agent Communication Relationship Ketaon Nelson Spouse Primary healthcare agent [email or web address] Elisabeth Soliz Sibling First alternate healthcare [phone] agent (Mobile)
--- OUTSIDE RECORDS SUMMARY | 2019-05-11 01:25 | XMS REPORT | Clinical Summary ---
:1970 Author Organization [facility] - [facility] Address [address] [place] [address] Care Team Providers Name Role Phone Lilibeth Andrade MD Primary Care Provider Libby Espinoza RN Unavailable Unavailable Al Valiente MD Unavailable Junito Quezada MD Unavailable Karena Anand CUSTODIAL MAINTENANCE WORKER Unavailable Unavailable Tito Kirkpatrick MD Unavailable Dharmesh Rodriguez DO Affiliate Marketing Coordinator Allergies Active Allergy Reactions Severity Noted Date [...] DAILY, Reported on 07/15/2016 3:40 PM Insulin [place], Disposable, Use as directed, QID, 400 Each [...] breakfast. 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 Radiology Robert Adkins Encounter MD Namita 04/20/2019 [facility] Radiology Robert Adkins Encounter MD Namita 04/16/2019 Telephone Cardiology Robert Adkins LAB WORK MD Namita 04/13/2019 Antique Repairer Visit Phlebotomy Robert Adkins Chronic diastolic MD Namita CHF (congestive 2, Adc Lab heart failure) 04/12/2019 Surgery Surgery Dagoberto Luna LUMBAR EPIDURAL MD Tania STEROID INJECTION 04/12/2019 Anesthesia Event Surgery Genaro Glasgow CRNA Slann, Leonard J III, SOLARIS ADMINISTRATOR 04/12/2019 Hospital Surgery Dagoberto Luna MD 04/06/2019 Office Visit Cardiology Robert Adkins MD CHF (congestive heart failure) (Primary Dx) 04/06/2019 Refill Endocrinology Zhen Guillaume MD Refill Request & Metabolism 04/05/2019 Antique Repairer Visit Phlebotomy Robert Adkins MD CHF (congestive [...] Lab Results; LAB MD Namita WORK 03/12/2019 Antique Repairer Visit Phlebotomy Robert Adkins MD CHF (congestive 2, Adc Lab heart failure) 03/12/2019 Orders Only Doctor Unassigned, [place] 03/12/2019 Telephone Cardiology Robert Adkins Pre-op Clearance MD Namita ([facility]) 03/11/2019 Refill Internal Medicine Lupe Refill Request Lilibeth Payne MD 03/10/2019 Refill Internal Medicine Lupe Refill Request Lilibeth Payne MD 03/09/2019 Antique Repairer Visit Clinical Medical Dagoberto Luna Radiculopathy , Laboratory MD Tania unspecified spinal 1, Adc Lab region (Primary Dx) 03/09/2019 Antique Repairer Visit Phlebotomy Robert Adkins Hypopotassemia MD Namita 2, Adc Lab 03/09/2019 Orders Only Doctor Unassigned, [place] 03/03/2019 Telephone Cardiology Robert Adkins LAB WORK; Lab MD Namita Results; Medication Dose Change 03/02/2019 Antique Repairer Visit Phlebotomy Robert Adkins Acute on chronic diastolic congestive heart failure; MD Namita Hypopotassemia 2, Adc Lab 03/02/2019 Orders Only Doctor Unassigned, [place] 03/01/2019 Hospital Cardiac Ryder Fields MD PAF (paroxysmal atrial fibrillation) (Primary Dx); Encounter Electrophysiology Simi, Remote Bradycardia; Device Check At Artificial cardiac pacemaker Home - 02/26/2019 Nurse Visit Anti-coagulation Clinic Nat, Anticoagulation management encounter; Harley Other pulmonary embolism without acute cor pulmonale, unspecified chronicity; MD Fei ST elevation myocardial infarction involving right coronary artery Nurse, [facility] Anticoag 02/24/2019 Antique Repairer Visit Clinical Medical Zhen Jones MD Secondary male Laboratory 1, Adc Lab hypogonadism 02/24/2019 Office Visit Endocrinology Diabetes Zhen Jones MD 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); & Metabolism Secondary male hypogonadism; Dyslipidemia; Essential hypertension; High serum aldosterone 02/24/2019 Orders Only Doctor Unassigned, [place] 02/24/2019 Telephone Cardiology Robert Adkins Results MD Namita 02/23/2019 Office Visit Internal Medicine Lupe, Other fatigue ( Primary Dx); Lilibeth Payne MD Vitamin B12 deficiency; Uric acid stone in urine; Chest pain, unspecified type; Skin problem 02/23/2019 Antique Repairer Visit Phlebotomy Silvia Shaffer MD 2, Adc Lab 02/23/2019 Orders Only Doctor Unassigned, [place] 02/23/2019 Refill Internal Medicine Lupe, Refill Request Lilibeth Payne MD 02/19/2019 Telephone Cardiology Robert Adkins LAB WORK; Lab MD Namita Results 02/14/2019 Telephone Cardiology Sundar Novak, Abnormal Lab MBBS 02/13/2019 Emergency Emergency Medicine Amisha Toth (Primary J, DO Dx) 02/12/2019 Antique Repairer Visit Phlebotomy Iggy Andrade MD 2, Adc Lab 02/12/2019 Orders Only Doctor Unassigned, [place] 02/09/2019 Office Visit Cardiology Robert Adkins Hypopotassemia (Primary Dx); MD Namita Chronic diastolic CHF (congestive heart failure); Coronary artery disease of [place] artery of [place] heart with stable angina pectoris 02/09/2019 Emergency Emergency Medicine Kurt Natarajan Fatigue, unspecified type (Primary Dx); MD Tania Hypokalemia; Uncontrolled type 2 diabetes mellitus with hyperglycemia 02/09/2019 Telephone Cardiology Robert Adkins Assessment MD Namita 02/08/2019 Telephone Cardiology Sundar Novak, Kory Lab MBBS 02/06/2019 Antique Repairer Visit Clinical Medical Andrade, Hypouricemia ( Primary Dx); Laboratory Lilibeth Payne MD Need for prophylactic chemotherapy; 1, Adc Lab Chronic diastolic congestive heart failure 02/06/2019 Orders Only Doctor Unassigned, [place] 02/05/2019 Telephone Cardiology Robert Adkins Pre-Visit Planning; [...] Comments Blood Pressure 111/72 05/06/2019 12:28 PM MINE SAFETY MANAGER Pulse 78 05/06/2019 12:28 PM MINE SAFETY MANAGER Temperature 37.1 C (98.8 F) 05/05/2019 7:40 AM MINE SAFETY MANAGER Respiratory Rate 18 05/06/2019 12:28 PM MINE SAFETY MANAGER Oxygen Saturation 96% 05/05/2019 7:40 AM MINE SAFETY MANAGER Inhaled Oxygen Concentration - - Weight 132.5 kg (292 lb) 05/06/2019 12:28 PM MINE SAFETY MANAGER Height 177.8 cm (5' 10") 05/02/2019 5:53 PM MINE SAFETY MANAGER Body Mass Index 41.9 05/02/2019 5:53 PM MINE SAFETY MANAGER Plan of Treatment Date Type Specialty Care Team Description 05/07/2019 Nurse Visit Anti-coagulation Clinic Nurse, Christen Brown 05/13/2019 Office Visit Internal Medicine Lilibeth Andrade MD [address] [place] [address] Dr Lewis [address] [place] [address] [phone] 05/27/2019 Appointment Cardiac Electrophysiology Outpt-Simi, Pacemaker/Icd 06/01/2019 Office Visit Internal Medicine Lilibeth Andrade MD [address] [place] [address] Dr Lewis [address] [place] [address] [phone] 07/06/2019 Office Visit Internal Medicine Lilibeth Andrade MD [address] [place] [address] Dr Lewis [address] [place] [address] [phone] 07/13/2019 Office Visit Endocrinology Diabetes & JonesZhen MD Metabolism [address] [place] [address] [phone] 09/28/2019 Office Visit Cardiology Robert Adkins MD [address] [place] [address] [phone] [place], [place] [phone] 10/27/2019 Office Visit Pulmonary Disease Max Aguiar MD [address] [place] [address] Dr Lewis [address] [place] [address] [phone] 12/08/2019 Office Visit Ophthalmology Yariel Tineo MD [address] [place] [address]. [place] [address] Health Maintenance Due Date Last [...] 06/27/2017 (Not Indicated) Implants Implanted Type Area Physical Therapy Assistant Device Shelf Model / Identifier Expiration Serial / Date Lot Prolene Mesh MESH Right: Ethicon 12/20/2020 PMSK / Implanted: Qty: 1 on 07/04/2016 by Alfonso Martinez MD at [facility] [employer]dom[employer] PMSK / [id number] Pacemaker PACEMAKER Stent-06/24/2016 Implanted: 06/24/2016 (Quantity not on file) Procedures Procedure Name Priority Date/Time Associated Diagnosis Comments POCT GLUCOSE Routine 05/05/2019 Results for (AUTOMATED) 7:41 AM MINE SAFETY MANAGER this procedure are in the results section. PROTHROMBIN TIME / Routine 05/05/2019 Results for INR 3:57 AM MINE SAFETY MANAGER this procedure are in the results section. POCT GLUCOSE Routine 05/04/2019 Results for (AUTOMATED) 7:43 PM MINE SAFETY MANAGER this procedure are in the results section. POCT GLUCOSE Routine 05/04/2019 Results for (AUTOMATED) 11:26 AM MINE SAFETY MANAGER this procedure are in the results section. POCT GLUCOSE Routine 05/04/2019 Results for (AUTOMATED) 7:35 AM MINE SAFETY MANAGER this procedure are in the results section. PROTHROMBIN TIME / Routine 05/04/2019 Results for INR 2:58 AM MINE SAFETY MANAGER this procedure are in the results section. BASIC METABOLIC PANEL Routine 05/04/2019 Results for (NA, K, CL, CO2, 2:58 AM MINE SAFETY MANAGER this procedure GLUCOSE, BUN, are in the CREATININE, CA) results section. POCT GLUCOSE Routine 05/03/2019 Results for (AUTOMATED) 7:41 PM MINE SAFETY MANAGER this procedure are in the results section. POCT GLUCOSE Routine 05/03/2019 Results for (AUTOMATED) 4:27 PM MINE SAFETY MANAGER this procedure are in the results section. POCT GLUCOSE Routine 05/03/2019 Results for (AUTOMATED) 11:27 AM MINE SAFETY MANAGER this procedure are in the results section. ECHO ROUTINE Routine 05/03/2019 SOB (shortness of W/DOPPLER COLOR 11:25 AM MINE SAFETY MANAGER breath) TROPONIN I Routine 05/03/2019 Results for 9:31 AM MINE SAFETY MANAGER this procedure are in the results section. POCT GLUCOSE Routine 05/03/2019 Results for (AUTOMATED) 7:40 AM MINE SAFETY MANAGER this procedure are in the results section. PROTHROMBIN TIME / Routine 05/03/2019 Results for INR 2:40 AM MINE SAFETY MANAGER this procedure are in the results section. BASIC METABOLIC PANEL Routine 05/03/2019 Results for (NA, K, CL, CO2, 2:40 AM MINE SAFETY MANAGER this procedure GLUCOSE, BUN, are in the CREATININE, CA) results section. TROPONIN I Routine 05/03/2019 Results for 2:40 AM MINE SAFETY MANAGER this procedure are in the results section. POCT GLUCOSE Routine 05/02/2019 Results for (AUTOMATED) 8:41 PM MINE SAFETY MANAGER this procedure are in the results section. TROPONIN I Routine 05/02/2019 Results for 8:36 PM MINE SAFETY MANAGER this procedure are in the results section. XR CHEST 1 VW STAT 05/02/2019 SOB (shortness of Results for 3:39 PM MINE SAFETY MANAGER breath) this procedure are in the results section. PROTHROMBIN TIME / STAT 05/02/2019 SOB (shortness of Results for INR 3:29 PM MINE SAFETY MANAGER breath) this procedure are in the results section. LIPID PANEL Add-on 05/02/2019 Results for (66616)(TOTAL 3:27 PM MINE SAFETY MANAGER this procedure CHOLESTEROL, are in the TRIGLYCERIDES, HDL) results section. THYROID STIMULATING Add-on 05/02/2019 Results for HORMONE 3:27 PM MINE SAFETY MANAGER this procedure are in the results section. GLYCOSYLATED Add-on 05/02/2019 Results for HEMOGLOBIN (A1C) 3:27 PM MINE SAFETY MANAGER this procedure are in the results section. CBC WITH DIFFERENTIAL STAT 05/02/2019 SOB (shortness of Results for 3:27 PM MINE SAFETY MANAGER breath) this procedure are in the results section. N-TERMINAL PRO-BNP STAT 05/02/2019 SOB (shortness of Results for 3:27 PM MINE SAFETY MANAGER breath) this procedure are in the results section. TROPONIN I STAT 05/02/2019 SOB (shortness of Results for 3:27 PM MINE SAFETY MANAGER breath) this procedure are in the results section. HEPATIC FUNCTION STAT 05/02/2019 SOB (shortness of Results for PANEL (88126) 3:27 PM MINE SAFETY MANAGER breath) this procedure (ALB,T.PRO,BILI are in the T,BU/BC,ALT,AST,ALK results PHOS) section. BASIC METABOLIC PANEL STAT 05/02/2019 SOB (shortness of Results for (NA, K, CL, CO2, 3:27 PM MINE SAFETY MANAGER breath) this procedure GLUCOSE, BUN, are in the CREATININE, CA) results section. CBC WITH DIFFERENTIAL Routine 05/02/2019 SOB (shortness of Results for 3:27 PM MINE SAFETY MANAGER breath) this procedure are in the results section. EKG-12 LEAD Routine 05/02/2019 3:26 PM MINE SAFETY MANAGER EKG-12 LEAD STAT 05/02/2019 3:22 PM MINE SAFETY MANAGER CONSENT/REFUSAL FOR Routine 05/02/2019 DIAGNOSIS AND 3:16 PM MINE SAFETY MANAGER TREATMENT PATIENT AGREEMENTS Routine 05/02/2019 AND CONTRACTS 12:01 AM MINE SAFETY MANAGER HOSPITAL ADMISSION Routine 05/02/2019 12:01 AM MINE SAFETY MANAGER HOSPITAL ADM - MISC Routine 05/02/2019 12:01 AM MINE SAFETY MANAGER FL TIME OR Routine 04/26/2019 Pain Results for (NON-REPORTABLE) 8:28 AM MINE SAFETY MANAGER this procedure are in the results section. LUMBAR EPIDURAL Level 5 04/26/2019 Back pain STEROID INJECTION (greater than 8:00 AM MINE SAFETY MANAGER 5 days) POCT GLUCOSE Routine 04/26/2019 Results for (AUTOMATED) 6:46 AM MINE SAFETY MANAGER this procedure are in the results section. POCT GLUCOSE(AGE Routine 04/26/2019 Results for >30DAYS) 6:46 AM MINE SAFETY MANAGER this procedure are in the results section. DAY SURGERY - ADC Routine 04/26/2019 12:01 AM MINE SAFETY MANAGER NM CARDIAC INFARCTION Routine 04/20/2019 Chronic diastolic [...] PANEL STAT 02/09/2019 Fatigue, unspecified Results for (46349) 9:51 AM CDT type this procedure are [...] METABOLIC PANEL Routine 02/06/2019 Hypouricemia Results for (98758) 9:01 AM CDT Need for this procedure [...] results section. ZINC, SERUM Routine 02/06/2019 Other residential Results for 9:01 AM CDT (current) drug this procedure therapy are in the results section. HIGH SENSITIVITY CRP Routine 02/06/2019 Other tank terminal gauger Results for 9:01 AM CDT (current) drug this procedure therapy are in the results section. HOMOCYSTEINE Routine 02/06/2019 Other tank terminal gauger Results for 9:01 AM CDT (current) drug this procedure therapy are in the results section. FOLATE Routine 02/06/2019 Other tank terminal gauger Results for 9:01 AM CDT (current) drug this procedure therapy are in the results section. VITAMIN D, 25-OH Routine 02/06/2019 Other tank terminal gauger Results for 9:01 AM CDT (current) drug this procedure therapy are in the results section. VITAMIN B12, LEVEL Routine 02/06/2019 Other tank terminal gauger Results for 9:01 AM CDT (current) drug this procedure therapy are in the results section. VITAMIN B6, PLASMA Routine 02/06/2019 Other tank terminal gauger Results for 9:01 AM CDT (current) drug this procedure therapy are in the results section. VITAMIN B1 Routine 02/06/2019 Other tank terminal gauger Results for (THIAMINE), WHOLE 9:01 AM CDT [...] Results POCT GLUCOSE (AUTOMATED) (05/05/2019 7:41 AM MINE SAFETY MANAGER)Only the most recent of12 resultswithin the time period is included. POCT GLU 182 (H) 70 - 110 mg/dL [facility] Specimen Blood Performing Organization Address [facility] Phone Number [facility] CLIA: [id number], [address] [place] [address] PROTHROMBIN TIME / INR (05/05/2019 3:57 AM MINE SAFETY MANAGER)Only the most recent of4 resultswithin the time period is included. PROTIME PATIENT 20.9 (H) 12.0 - 14.7 [facility] LABORATORY INR 1.9Comment: Normal [facility] INR <1.1; Warfarin [facility] Therapeutic range LABORATORY 2.0 to 3.0 or 2.5 to 3.5, depending upon the indications. Specimen Blood - ARM, RIGHT Performing Organization Address [facility] Phone Number [facility] CLIA: [id number], [address] [place] [address] BASIC METABOLIC PANEL (NA, K, CL, CO2, GLUCOSE, BUN, CREATININE, CA) (2018 2:58 AM MINE SAFETY MANAGER)Only the most recent of11 resultswithin the time period is included. NA 135 135 - 145 [facility] mmol/L [facility] K 4.5 3.5 - 5.0 [facility] mmol/L [facility] CL 98 98 - 108 mmol/L [facility] CO2 TOTAL 29 23 - 31 mmol/L [facility] AGAP 8 2 - 16 [facility] BUN 24 (H) 7 - 23 mg/dL [facility] GLUCOSE 268 (H) 70 - 110 mg/dL [facility] CREATININE 1.29 (H) 0.60 - 1.25 [facility] mg/dL [facility]ITAL [facility] CALCIUM 9.4 8.6 - 10.6 [facility] mg/dL [facility]ITAL [facility]ORY eGFR Calculation 59.0 mL/min/1.73m2 [facility] (Non- [facility] [place]an) eGFR Calculation 71.5 mL/min/1.73m2 [facility] () [facility] Specimen Blood - ARM, RIGHT Narrative [...] City/State/Zipcode Phone Number [facility] CLIA: [id number], [address] [place] [address] ECHO ROUTINE W/DOPPLER COLOR (05/03/2019 11:25 AM MINE SAFETY MANAGER) Specimen Performing Organization Address City/[facility] Phone Number ECHO TROPONIN I (05/03/2019 9:31 AM MINE SAFETY MANAGER)Only the most recent of5 resultswithin the time period is included. TROPONIN I 0.003 <=0.034 ng/mL [facility] Specimen Blood - ARM, RIGHT [...] patient's use of biotin. Performing Organization Address [facility]/Zipcode Phone Number [facility] CLIA: [id number], [address] [place] [address] Chest 1 View (05/02/2019 3:39 PM MINE SAFETY MANAGER) Specimen Impressions Performed At PACS/VR/DOSE No acute [...] Results Inft User - 05/02/2019 4:49 PM MINE SAFETY MANAGER EXAM: XR CHEST 1 VW HISTORY: sob [...] with the above report. Performing Organization Address [facility]/Zipcode Phone Number PACS/VR/DOSE CBC WITH DIFFERENTIAL (05/02/2019 3:27 PM MINE SAFETY MANAGER)Only the most recent of5 resultswithin the time period is included. WBC 14.69 (H) 4.20 - 10.70 [facility] 10*3/L [facility] RBC 6.39 (H) 4.26 - 5.52 [facility] 10*6/L [facility] HGB 15.5 12.2 - 16.4 [facility] g/dL HOSPITAL LAB[facility]ORY HCT 50.0 (H) 38.4 - 49.3 % [facility] MCV 78.2 (L) 81.7 - 95.6 fL [facility] MCH 24.3 (L) 26.1 - 32.7 pg [facility] MCHC 31.0 (L) 31.2 - 35.0 [facility] g/dL HOSPITAL LAB[facility]ORY RDW-SD 49.2 38.5 - 51.6 fL [facility] RDW-CV 18.9 (H) 12.1 - 15.4 % [facility] PLT 271 150 - 328 [facility] 10*3/L HOSPITAL [facility]ORY MPV 9.4 (L) 9.8 - 13.0 fL [facility] NRBC/100 WBC 0.0 0.0 - 10.0 /100 [facility] WBCs [facility] NRBC x10^3 <0.01 10*3/L [facility] GRAN MAT (NEUT) % 80.0 % [facility] IMM GRAN % 0.60 % [facility] LYMPH % 12.9 % [facility] MONO % 5.9 % [facility] EOS % 0.3 % [facility] BASO % 0.3 % [facility] GRAN MAT x10^3(ANC) 11.74 (H) 1.99 - 6.95 [facility] 10*3/uL HOSPITAL LABORATORY IMM GRAN x10^3 0.09 (H) 0.00 - 0.06 [facility] 10*3/uL HOSPITAL LABORATORY LYMPH x10^3 1.90 1.09 - 3.23 [facility] 10*3/uL HOSPITAL LABORATORY MONO x10^3 0.86 0.36 - 1.02 [facility] 10*3/uL HOSPITAL LABORATORY EOS x10^3 0.05 (L) 0.06 - 0.53 [facility] 10*3/uL HOSPITAL LABORATORY BASO x10^3 0.05 0.01 - 0.09 [facility] 10*3/uL HOSPITAL LABORATORY Specimen Blood - VENOUS Performing Organization Address City/State/Zipcode Phone Number [facility] CLIA: [id number], [address] [place] [address] N-TERMINAL PRO-BNP (05/02/2019 3:27 PM MINE SAFETY MANAGER)Only the most recent of4 resultswithin the time period is included. NT-proBNP 49 <=125 pg/mL [facility] Specimen Blood - VENOUS Narrative Performed At Biotin has been reported to cause a negative [facility] bias, interpret results relative to patient's use of biotin. Performing Organization Address City/[facility] Phone Number [facility] CLIA: [id number], [address] [place] [address] Glycosylated Hemoglobin (A1C) (05/02/2019 3:27 PM MINE SAFETY MANAGER) HGB A1C 8.6 (H) 4.0 - 6.0 % NGSP [facility] Specimen Blood - VENOUS Narrative Performed At %A1C (NGSP) Interpretation (ADA) [facility] 4.8-5.6 Normal or (Non-Diabetic Range) 5.7-6.4 Increased Risk (Pre-Diabetic) >6.5 Diabetes Indicated Performing Organization Address [facility] Phone Number [facility] CLIA: [id number], [address] [place], [place] [address] LABORATORY [address] LIPID PANEL ([id number])(TOTAL CHOLESTEROL, TRIGLYCERIDES, HDL) (05/02/2019 3:27 PM MINE SAFETY MANAGER) CHOL 204 (H) 120 - 200 mg/dL [facility] HDL 51 >40 mg/dL [facility] HDLC RATIO 4.0 <=5.0 [facility] TRIG 156 30 - 170 mg/dL [facility] LDL CHOL 122 <=160 mg/dL [facility] VLDL 31 5 - 60 mg/dL [facility] Specimen Blood - VENOUS Performing Organization Address [facility] Phone Number [facility] CLIA: [id number], [address] [place] [address] Hepatic Function Panel (ALB, T.PRO, BILI T, BU/BC, ALT, AST, ALK PHOS) (2018 3:27 PM MINE SAFETY MANAGER) TOTAL BILI 0.5 0.1 - 1.1 mg/dL [facility] BILI UNCON 0.3 0.1 - 1.1 mg/dL [facility] BILI CONJ 0.0 0.0 - 0.3 mg/dL [facility] T PROTEIN 8.6 (H) 6.3 - 8.2 g/dL [facility] ALBUMIN 4.4 3.5 - 5.0 g/dL [facility] ALK PHOS 145 (H) 34 - 122 U/L [facility] ALTv 33 5 - 50 U/L [facility] AST(SGOT) 29 13 - 40 U/L [facility] Specimen Blood - VENOUS Performing Organization Address [facility] Phone Number [facility] CLIA: [id number], [address] [place], [place] [address] LABORATORY [address] THYROID STIMULATING HORMONE (05/02/2019 3:27 PM MINE SAFETY MANAGER) Pathologist [facility] TSH 2.69Comment: Biotin 0.45 - 4.70 [facility] has been reported [facility] LAB[facility] to cause a negative bias, interpret results relative to patient's use of biotin. Specimen Blood - VENOUS Performing Organization Address [facility]/Zipcode Phone Number [facility] CLIA: [id number], [address] [place], [place] [address] LABORATORY [address] EKG-12 LEAD (05/02/2019 3:26 PM MINE SAFETY MANAGER) Specimen Performing Organization Address City/State/Zipcode Phone Number [facility] CONSENT/REFUSAL FOR DIAGNOSIS AND TREATMENT (05/02/2019 3:16 PM MINE SAFETY MANAGER)Only the most recent of4 resultswithin the time period is included. Specimen Performing Organization Address City/State/Zipcode Phone Number [facility] PATIENT AGREEMENTS AND CONTRACTS (05/02/2019 12:01 AM MINE SAFETY MANAGER) Specimen Performing Organization Address City/State/Zipcode Phone Number [facility] HOSPITAL ADMISSION (05/02/2019 12:01 AM MINE SAFETY MANAGER) Specimen Performing Organization Address City/State/Zipcode Phone Number [facility] HOSPITAL ADM - MISC (05/02/2019 12:01 AM MINE SAFETY MANAGER) Specimen Performing Organization Address City/State/Zipcode Phone Number [facility] [place] TIME OR (NON-REPORTABLE) (04/26/2019 8:28 AM MINE SAFETY MANAGER)Only the most recent of2 resultswithin the time period is included. Specimen Narrative Performed At These images do not require a Radiology diagnostic report. PACS Performing Organization Address City/State/Zipcode Phone Number PACS POCT Glucose (04/26/2019 6:46 AM MINE SAFETY MANAGER)Only the most recent of3 resultswithin the time period is included. POCT Glu (age>30days) 150 (A) 70 - 110 mg/dL Specimen Blood - CAPILLARY DAY SURGERY - ADC (04/26/2019 12:01 AM MINE SAFETY MANAGER) Specimen Performing Organization Address City/State/Zipcode Phone Number [...] seen in bones and kidneys. Procedure Note [facility], Radiant Results Inft User - 04/21/2019 2:42 [...] with the above report. Performing Organization Address City/[facility] Phone Number PACS/VR/DOSE Immunofixation, Urine (04/13/2019 8:33 AM CDT) ALB U YANNI Negative [facility] Specimen Urine - URINE, CLEAN CATCH Performing Organization Address [facility] Phone Number [facility] CLIA: [id number], [address] [place] [address] [phone] [facility] IMMUNOFIXATION, SERUM (04/13/2019 8:30 AM CDT) [facility] T PROTEIN 7.7 6.3 - 8.2 g/dL [facility] ALBUMIN 3.8 3.5 - 5.0 g/dL [facility] IgG 1,630 (H) 636-1,600 mg/dL [facility] IgA 565 (H) 70 - 312 mg/dL [facility] IgM 235 56 - 352 mg/dL [facility] YANNI INTERP Marked polyclonal increase in serum IgA. [facility] Serum IgG at the upper limit of normal. SERVICES Normal urine protein profile. No M-spike present in serum or urine. Specimen Blood Narrative Performed At Performing Organization Address [facility] Phone Number [facility] CLIA: [id number], [address] [place] [address] [phone] [facility] Rib [place]-Lambda Quant. FLC with Ratio (04/13/2019 8:30 AM CDT) [place] Qnt Free 3.15 (H) 0.33 - 1.94 [facility] mg/dL Lambda Qnt Free 1.88 0.57 - 2.63 [facility] mg/dL [place]/Lambda Free 1.68 (H) 0.26 - 1.65 [facility] Ratio Comment: Performed by [employer], [address] [place] [address],[place] [id number] [email or web address], Piyush Price MD, Lab. Director Specimen Blood Performing Organization Address City/State/Zipcode Phone Number [facility] [address] [place] [address] MAGNESIUM (04/13/2019 8:30 AM CDT)Only the most recent of7 resultswithin the time period is included. MAGNESIUM 2.1 1.7 - 2.4 mg/dL [facility] Specimen Blood Performing Organization Address City/State/Zipcode Phone Number [facility] CLIA: [id number], [address] [place] [address] AGREEMENTS AUTHORIZATIONS AND IRREVOCABLE ASSIGNMENTS (FORM 2001) (04/13/2019 12 :01 AM CDT)Only the most recent of8 resultswithin the time period is included. Specimen Performing Organization Address City/State/Zipcode Phone Number [facility] DAY SURGERY - ADC (04/12/2019 12:01 AM CDT) Specimen Performing Organization Address City/State/Zipcode Phone Number [facility] [place] TIME (NON-REPORTABLE) (03/29/2019 8:20 AM CDT) Specimen Narrative Performed At These images do not require a Radiology diagnostic report. PACS Performing Organization Address City/State/Zipcode Phone Number PACS DAY SURGERY - ADC (03/29/2019 12:01 AM CDT) Specimen Performing Organization Address City/State/Zipcode Phone Number [facility] MEDICAL RELEASE/CLEARANCE FORMS (03/18/2019 12:01 AM CDT)Only the most recent of2 resultswithin the time period is included. Specimen Performing Organization Address City/State/Zipcode Phone Number [facility] PHYSICIAN ORDERS (03/09/2019 12:01 AM CDT)Only [...] CDT) TESTOST 150.0 132.0 - 813.0 ng/dL [facility] Specimen Blood Narrative Performed At Normal Ranges [facility] Adult Female: 6-77 ng/dL Adult Male <50 years: 132-813 ng/dL Adult Male >50 years: 72-623 ng/dL Females on Control Pills may have higher results. Obese patients may have lower results. Biotin has been reported to cause a negative bias, interpret results relative to patient's use of biotin. Performing Organization Address City/State/Zipcode Phone Number [facility] CLIA: [id number], [address] [place] [address] [facility] PROSTATIC SPECIFIC ANTIGEN SCREEN (02/24/2019 4:17 PM CDT) [facility] PSA 0.25 <=4.00 ng/mL [facility] Specimen Blood Narrative Performed At Biotin has been reported to cause a negative [facility] bias, interpret results relative to patient's use of biotin. Performing Organization Address City/State/Zipcode Phone Number [facility] CLIA: [id number], [address] [place] [address] PATIENT QUESTIONNAIRE (02/24/2019 12:01 AM CDT) Specimen Performing Organization Address City/State/Zipcode Phone Number HIM POCT HEMOGLOBIN A1C TEST (02/24/2019) [facility] POCT HBA1C 8.2 4 - 6 % Specimen Blood - CAPILLARY Urinalysis (02/13/2019 2:17 AM CDT)Only the most recent of2 resultswithin the time period is included. [facility] APPEARANCE Clear Clear [facility] [...] - URINE, CLEAN CATCH Performing Organization Address City/[facility]/Zipcode Phone Number [facility] CLIA: [id number], [address] [place] [address] EKG-12 LEAD (02/13/2019 1:58 AM CDT) Specimen Performing Organization Address City/State/Zipcode Phone Number [facility] NOTICE OF PRIVACY PRACTICES (02/13/2019 1:37 AM CDT)Only the most recent of2 resultswithin the time period is included. Specimen Performing Organization Address City/[facility]/Zipcode Phone Number [facility] EMERGENCY SERVICES AGREEMENTS AND AUTHORIZATIONS (02/13/2019 12:01 AM CDT)Only the most recent of2 resultswithin the time period is included. Specimen Performing Organization Address [facility] Phone Number [facility] COMP. METABOLIC PANEL ([id number]) (02/09/2019 9:51 AM CDT)Only the most recent of2 resultswithin the time period is included. NA 136 135 - 145 [facility] mmol/L [facility] K 3.2 (L) 3.5 - 5.0 [facility] mmol/L [facility] CL 91 (L) 98 - 108 mmol/L [facility] CO2 TOTAL 33 (H) 23 - 31 mmol/L [facility] AGAP 12 2 - 16 [facility] BUN 23 7 - 23 mg/dL [facility] GLUCOSE 248 (H) 70 - 110 mg/dL [facility] CREATININE 1.03 0.60 - 1.25 [facility] mg/dL [facility] TOTAL BILI 0.5 0.1 - 1.1 mg/dL [facility] CALCIUM 9.2 8.6 - 10.6 [facility] mg/dL [facility] T PROTEIN 8.5 (H) 6.3 - 8.2 g/dL [facility] ALBUMIN 4.4 3.5 - 5.0 g/dL [facility] ALK PHOS 111 34 - 122 U/L [facility] ALT(SGPT) 24 9 - 51 U/L [facility] AST(SGOT) 46 (H) 13 - 40 U/L [facility] eGFR Calculation 76.8 mL/min/1.73m2 [facility] (Non-[facility][note 3] LABORATORY Guinean) eGFR Calculation 93.0 mL/min/1.73m2 [facility] () [facility] Specimen Blood - ARM, RIGHT Narrative [...] City/State/Zipcode Phone Number [facility] CLIA: [id number], [address] [place] [address] [facility] [address] EKG-12 LEAD (02/09/2019 9:41 AM CDT) Specimen Performing Organization Address City/State/Zipcode Phone Number [facility] VITAMIN B1 (THIAMINE), WHOLE BLOOD (02/06/2019 9:01 AM CDT) Vitamin B1, Whole 104 70 - 180 [facility] Blood Comment: nmol/L INTERPRETIVE INFORMATION: Vitamin B1, Whole Blood This assay measures the concentration of thiamine diphosphate (TDP), the primary active form of vitamin B1. Approximately 90 percent of vitamin B1 present in whole blood is TDP. Thiamine and thiamine monophosphate, which comprise the remaining 10 percent, are not measured. Test developed and characteristics determined by [employer]. See Compliance Statement B: [employer] [employer]/CS Performed by [employer], [address] [place] [address] www[email or web address], Piyush Price MD, Lab. Director Specimen Blood Performing Organization Address [facility] Phone Number [facility] [address] [place] [address] CREATININE, URINE RANDOM (02/06/2019 9:01 AM CDT) CREAT U 63.2 mg/dL [facility] Specimen Urine - URINE, CLEAN CATCH Performing Organization Address [facility] Phone Number [facility] CLIA: [id number], [address] [place] [address] VITAMIN D, 25-OH (02/06/2019 9:01 AM CDT) VIT D 25OH 60 25 - 80 ng/mL [facility] 25-Hydroxy D3 60.2 ng/mL [facility] 25-Hydroxy D2 <2.5 ng/mL [facility] Specimen Blood Narrative Performed At Test developed and characteristics determined by [facility] SERVICES Laboratory Services. Performing Organization Address City/[facility] Phone Number [facility] CLIA: [id number], [address] [place] [address] [facility] HOMOCYSTEINE (02/06/2019 9:01 AM CDT) Homocysteine 9.5 6.6 - 14.8 umol/L [facility] Specimen Blood Performing Organization Address [facility] Phone Number [facility] CLIA: [id number], [address] [place], [place] [address] [facility] HIGH SENSITIVITY CRP (02/06/2019 9:01 AM CDT) HS CRP 4.75 (H) <0.74 mg/dL [facility] Specimen Blood Performing Organization Address [facility] Phone Number [facility] CLIA: [id number], [address] [place], [place] [address] [phone] [facility] URINE CULTURE (02/06/2019 9:01 AM CDT) URINE CULTURE No aerobic organisms [facility] isolated SERVICES Specimen Urine - URINE, CLEAN CATCH Performing Organization Address [facility] Phone Number [facility] CLIA: [id number], [address] [place] [address] [facility] MICROALBUMIN URINE (02/06/2019 9:01 AM CDT) CREAT U 62.6 mg/dL [facility] MICROALB U 3 0 - 45 ug/mL [facility] MICROAL/CR 542 0-3,500 ug/mmol [facility] creatinine SERVICES Specimen Urine - URINE, CLEAN CATCH Performing Organization Address [facility] Phone Number [facility] CLIA: [id number], [address] [place] [address] [facility] TOTAL IRON BINDING CAPACITY (02/06/2019 9:01 AM CDT) TIBC 314 250 - 410 ug/dL [facility] % FE SAT 17 (L) 20 - 50 % [facility] Specimen Blood Performing Organization Address [facility] Phone Number [facility] CLIA: [id number], [address] [place] [address] FOLATE (02/06/2019 9:01 AM CDT) FOLATE SER 15.0 3.0 - 20.0 ng/mL [facility] Specimen Blood Performing Organization Address [facility] Phone Number [facility] CLIA: [id number], [address] [place] [address] [facility] VITAMIN B12, LEVEL (02/06/2019 9:01 AM CDT) VIT B12 543 240 - 930 pg/mL [facility] Specimen Blood Narrative Performed At Biotin has been reported to cause a positive bias, interpret [facility] results relative to patient's use of biotin. Performing Organization Address City/[facility] Phone Number [facility] CLIA: [id number], [address] [place] [address] [facility] IRON (02/06/2019 9:01 AM CDT) IRON 52 50 - 160 ug/dL [facility] Specimen Blood Performing Organization Address City/State/Zipcode Phone Number [facility] CLIA: [id number], [address] [place] [address] FERRITIN SERUM (02/06/2019 9:01 AM CDT) FERRITIN 66.3 18.0 - 464.0 ng/mL [facility] Specimen Blood Narrative Performed At Biotin has been reported to cause a negative [facility] bias, interpret results relative to patient's use of biotin. Performing Organization Address City/State/[facility] Phone Number [facility] CLIA: [id number], [address] [place] [address] URIC ACID (02/06/2019 9:01 AM CDT) URIC ACID 7.2 3.6 - 8.0 mg/dL [facility] Specimen Blood Performing Organization Address [facility] Phone Number [facility] CLIA: [id number], [address] [place] [address] VITAMIN B6, PLASMA (02/06/2019 9:01 AM CDT) VIT B6 154.9 (H) 20.0 - 125.0 [facility] Comment: nmol/L INTERPRETIVE INFORMATION: Vitamin B6 (Pyridoxal 5-Phosphate) Pyridoxal 5'-phosphate measured in a specimen collected following an 8-hour or overnight fast accurately indicates vitamin B6 nutritional status. Non-fasting specimen concentration reflects recent vitamin intake. Test developed and characteristics determined by [employer]. See Compliance Statement B: [employer]/CS Performed by [employer], [address] [place] [address] www[email or web address], Piyush Price MD, Lab. Director Specimen Blood Performing Organization Address [facility] Phone Number [facility] [address] [place] [address] ZINC, SERUM (02/06/2019 9:01 AM CDT) ZINC [...] absorption. Test developed and characteristics determined by [employer]. See Compliance Statement B: [employer]/CS Performed by [employer], [address] [place] [address] www[email or web address], Piyush Price MD, Lab. Director Specimen Blood Performing Organization Address City/State/Zipcode Phone Number [facility] [address] [place] [address] from Last 3 Months Insurance Payer Benefit Plan / Subscriber ID Effective Phone Address Type Group Dates [facility] [id number] 2017-[employer] [phone] H[employer] [phone] [place] [address] (Home) [place] [address] Advance Directives Name Relationship Healthcare Agent Communication Relationship Keaton Nelson Spouse Primary healthcare agent [phone] Elisabeth Soliz Sibling First alternate healthcare [phone] agent (Mobile)
[2019-05-11 01:56] LABS: Absolute Lymphocytes (CBC) 1.8 K/uL (0.7-4.9); Basophils % 0.5 % (0-1.3); Hematocrit 44.1 % (39.6-49.0); Lymphocytes % 12.2 % (15.3-44.8); Protime INR 2.39; RBC Red Blood Cell Count 5.87 M/uL (4.33-5.43)
[2019-05-11 02:16] LABS: ALT/SGPT 35 U/L (12-78); AST/SGOT 20 U/L (15-37); Albumin 3.3 g/dL (3.4-5.0); Alkaline Phosphatase 133 U/L (45-117); BUN Blood Urea Nitrogen 22 mg/dL (7-18); Bicarbonate 30 mmol/L (21-32); Bilirubin Direct 0.2 mg/dL (0-0.2); Bilirubin Total 0.4 mg/dL (0.2-1.0); Glucose Level 205 mg/dL (74-106); Magnesium 1.9 mg/dL (1.8-2.4); NT PRO-BNP 92 pg/mL (<125); Potassium 3.1 mmol/L (3.5-5.1); Protein, Total 8.2 g/dL (6.4-8.2); Sodium Level 135 mmol/L (136-145); Troponin (Emerg Dept Use Only) < 0.02 ng/mL (0.0-0.045)
[2019-05-11] MEDS ORDERED: MORPHINE 4 MG/ML SYR ONE (02:27)
[2019-05-11] MEDS ORDERED: ONDANSETRON 4 MG/2 ML VIAL ONE (02:27)
--- NOTE | 2019-05-11 02:32 | EDPHYS ---
Physician Documentation [facility] Name: Marquis Nelson Age: 49 yrs Sex: Male : 1970 Arrival Date: 05/11/2019 Time: 00:46 Bed 6 Private MD: ED Physician Nicanor Joyner HPI: 05/11 00:49 This 49 yrs old Male presents to ER via Unassigned with complaints of CHEST tw4 PAIN. 00:49 The patient or guardian reports chest pain that is located primarily in the anterior tw4 chest wall. The pain does not radiate. Associated signs and symptoms: just prior to arrival, 1 hour(s) ago, The patient has no apparent associated signs or symptoms. The chest pain is described as crushing, a heaviness. Duration: The patient or guardian reports a single episode. Modifying factors: The symptoms are alleviated by nothing. the symptoms are aggravated by nothing. Historical: - Allergies: 01:53 Flomax; lp1 01:53 Stadol; lp1 01:53 Neurontin; lp1 01:53 Trazodone; lp1 01:53 tramadol; lp1 01:53 Beta Blockers (sensitive/hypotension); lp1 01:53 Ibuprofen; lp1 01:53 Remeron; lp1 01:53 Skelaxin; lp1 01:53 Spironolactone; lp1 - Home Meds: 01:53 allopurinol 300 mg Oral tab 1 tab once daily [Active]; amlodipine 5 mg tab 1 tab twice lp1 a day [Active]; aripiprazole 10 mg oral tab 1 tab once daily [Active]; atorvastatin 40 mg oral tab 1 tab nightly [Active]; 02:04 clonazepam 1 mg Oral tab 1 tab 3 times per day [Active]; Plavix 75 mg Oral tab 1 tab lp1 once daily [Active]; cyanocobalamin (vitamin B-12) 1,000 mcg/mL injection soln 1 mL [Active]; desvenlafaxine succinate oral 100 mg oral 2 tabs once daily [Active]; docusate sodium 100 mg Oral cap 1 cap 2 times per day [Active]; dulaglutide subcutaneous 0.75 mg/ 0.5 ml subcutaneous 0.5 mL once wkly [Active]; ferrous sulfate 325 mg (65 mg iron) Oral tab three times a day [Active]; folic acid 1 mg Oral tab 1 tab once daily [Active]; potassium chloride 20 mEq Oral TbTQ 3 tab 3 times per day [Active]; Lasix 80 mg Oral tab 1 tab 2 times per day [Active]; magnesium oxide 400 mg Oral tab daily [Active]; metformin 500 mg Oral Tb24 1 tab once daily [Active]; methocarbamol 750 mg Oral tab twice a day [Active]; metolazone 2.5 mg oral tab once daily [Active]; 02:10 nitroglycerin 0.4 mg SL subl 1 tab every 5 minutes [Active]; pantoprazole 40 mg oral lp1 TbEC 1 tab 2 times per day [Active]; polyethylene glycol 3350 17 gram/dose oral powd once daily [Active]; ranolazine oral 1000 mg oral 2 times per day [Active]; Suboxone 8-2 mg sublingual film 1 film twice a day [Active]; testosterone 1.25 gram/ actuation (1 %) transdermal glpm once daily [Active]; Vitamin D3 2,000 unit oral tab daily [Active]; warfarin Oral 1 tab [Active]; - PMHx: 01:53 Myocardial infarction; CAD; CHF; AAA; ADD/ADHD; Anemia; Anxiety; Atrial Fib; GERD; High lp1 Cholesterol; Pacemaker; Pulmonary Embolism; - PSHx: 01:53 Hernia repair; lp1 - Immunization history:: Adult Immunizations up to date. - Social history:: Smoking status: Patient/guardian denies using tobacco, the patient reports quitting approximately 10 years ago. - Ebola Screening: : No symptoms or risks identified at this time. ROS: 00:49 Constitutional: Negative for fever, chills, and weight loss, Eyes: Negative for injury, tw4 pain, redness, and discharge, Respiratory: Negative for shortness of breath, cough, wheezing, and pleuritic chest pain, Abdomen/GI: Negative for abdominal pain, nausea, vomiting, diarrhea, and constipation, Back: Negative for injury and pain, MS/Extremity: Negative for injury and deformity, Skin: Negative for injury, rash, and discoloration, Neuro: Negative for headache, weakness, numbness, tingling, and seizure. 00:49 Cardiovascular: Positive for chest pain, Negative for edema, orthopnea, palpitations, paroxysmal nocturnal dyspnea. Exam: 00:49 Constitutional: This is a well developed, well nourished patient who is awake, alert, tw4 and in no acute distress. Head/Face: Normocephalic, atraumatic. Chest/axilla: Normal chest wall appearance and motion. Nontender with no deformity. No lesions are appreciated. Cardiovascular: Regular rate and rhythm with a normal S1 and S2. No gallops, murmurs, or rubs. Normal PMI, no JVD. No pulse deficits. Respiratory: Lungs have equal breath sounds bilaterally, clear to auscultation and percussion. No rales, rhonchi or wheezes noted. No increased work of breathing, no retractions or nasal flaring. Abdomen/GI: Soft, non-tender, with normal bowel sounds. No distension or tympany. No guarding or rebound. No evidence of tenderness throughout. Back: No spinal tenderness. No costovertebral tenderness. Full range of motion. MS/ Extremity: Pulses equal, no cyanosis. Neurovascular intact. Full, normal range of motion. Neuro: Awake and alert, GCS 15, oriented to person, place, time, and situation. Cranial nerves II-XII grossly intact. Motor strength 5/5 in all extremities. Sensory grossly intact. Cerebellar exam normal. Normal gait. Vital Signs: 00:45 BP 106 / 69; Pulse 84; Resp 14; Temp 97.8(O); Pulse Ox 97% on R/A; Weight 127.91 kg lp1 (R); Height 5 ft. 10 in. (177.80 cm); Pain 8/10; 01:30 BP 102 / 70; Pulse 81; Resp 16; Pulse Ox 98% on R/A; rr5 02:00 BP 107 / 77; Pulse 91; Resp 20; Pulse Ox 97% on R/A; lp1 02:30 BP 112 / 79; Pulse 88; Resp 17; Pulse Ox 95% on R/A; lp1 03:32 BP 113 / 90; Pulse 88; Resp 16; Pulse Ox 96% on 2 lpm NC; Pain 0/10; lp1 03:39 BP 108 / 75; Pulse 82; Resp 19; Pulse Ox 98% on 2 lpm NC; lp1 00:45 Body Mass Index 40.46 (127.91 kg, 177.80 cm) lp1 MDM: 00:47 Patient medically screened. tw4 06:26 Differential diagnosis: acute myocardial infarction, acute pericarditis, pulmonary tw4 embolus, stable angina. HEART Score: History: Highly Suspicious (2), ECG: Non specific repolarization disturbance / LBTB / PM (1), Age: > 45 and < 65 years (1), Risk Factors: > or = 3 Risk factors for atherosclerotic disease (2), Troponin: < or = 1 x Normal Limit (0), Total Score = 6. The patient was given aspirin in the Emergency Department. Data reviewed: vital signs, nurses notes. Data interpreted: Pulse oximetry: Interpretation: normal. Test interpretation: by ED physician or midlevel provider: ECG. Counseling: I had a detailed discussion with the patient and/or guardian regarding: the historical points, exam findings, and any diagnostic results supporting the discharge/admit diagnosis, lab results, radiology results. Physician consultation: Dorene Rosa MD regarding patient's condition, and will see patient in inpatient room. 05/11 01:31 Order name: Basic Metabolic Panel [facility] 05/11 01:31 Order name: CBC with Diff; Complete Time: 02:13 [facility] 05/11 02:13 Interpretation: Normal except: WBC 14.4; MCV 75.1; MCH 25.3; RDW 18.9; NEUT A 11.5; tw4 LYM% 12.2; ZORAN% 80.3. 05/11 01:31 Order name: LFT's [facility] 05/11 01:31 Order name: Magnesium [facility] 05/11 01:31 Order name: NT PRO-BNP [facility] 05/11 01:31 Order name: PT-INR; Complete Time: 02:13 [facility] 05/11 02:13 Interpretation: Normal except: PT 27.3. [facility] 05/11 01:31 Order name: Troponin (emerg Dept Use Only) [facility] 05/11 02:56 Order name: Basic Metabolic Panel [facility] 05/11 02:56 Order name: CBC with Automated Diff [facility] 05/11 02:56 Order name: Lipid Profile [facility] 05/11 02:56 Order name: Lipid Profile [facility] 05/11 02:56 Order name: Troponin I [facility] 05/11 02:56 Order name: Troponin I [facility] 05/11 02:56 Order name: Troponin I [facility] 05/11 01:31 Order name: XRAY Chest (1 view) [facility] 05/11 01:31 Order name: EKG; Complete Time: 01:32 4 05/11 01:31 Order name: Cardiac monitoring; Complete Time: 02:11 4 05/11 01:31 Order name: EKG - Nurse/Tech; Complete Time: 02:11 4 05/11 01:31 Order name: IV Saline Lock; Complete Time: 02:11 4 05/11 01:31 Order name: Labs collected and sent; Complete Time: 02:05/11 01:31 Order name: O2 Per Protocol; Complete Time: 02:11 4 05/11 01:31 Order name: O2 Sat Monitoring; Complete Time: 02:11 [facility] 05/11 02:56 Order name: CONS Physician Consult [facility] 05/11 02:56 Order name: Heart Healthy [facility] 05/11 02:56 Order name: EKG Electrocardiogram [facility] 05/11 02:56 Order name: EKG Electrocardiogram [facility] EC:23 Rhythm is regular, Normal Sinus Rhythm with Right bundle branch block. QRS [place] is tw4 Normal. MA interval is normal. QRS interval is normal. QT interval is normal. No Q waves. T waves are Inverted in leads III, V2, V3. Clinical impression: Abnormal EKG without significant change. Interpreted by me. Reviewed by me. Administered Medications: 02:30 Drug: Zofran 4 mg Route: IVP; Site: left forearm; lp1 03:06 Follow up: Response: No adverse reaction lp1 02:30 Drug: morphine 4 mg Route: IVP; Site: left forearm; lp1 03:06 Follow up: Response: Pain is decreased; RASS: Alert and Calm (0) lp1 Disposition: 05/11/19 02:34 Hospitalization ordered by Dorene Rosa for Observation. Preliminary diagnosis is Angina pectoris, unspecified. - Bed requested for Telemetry/MedSurg (observation). - Status is Observation. lp1 - Condition is Stable. - Problem is an ongoing problem. - Symptoms have improved. UTI on Admission? No Signatures: Dispatcher [employer] EDWA Viviana Tatum RN RN lp1 Marycruz Talavera RN RN Nicanor Joyner MD MD tw4 Corrections: (The following items were deleted from the chart) 02:32 02:32 05/11/2019 02:32 Discharged to Home. Impression: Angina pectoris, unspecified. tw4 Condition is Stable. Forms are Medication Reconciliation Form, Thank You Letter, Antibiotic Education, Prescription Opioid Use. Follow up: Private Physician; When: Upon discharge from the Emergency Department; Reason: Recheck today's complaints, Continuance of care. Problem is new. Symptoms have improved. tw4 03:10 02:34 Hospitalization Ordered by Dorene Rosa MD for Observation. Preliminary cg diagnosis is Angina pectoris, unspecified. Bed requested for Telemetry/MedSurg (observation). Status is Observation. Condition is Stable. Problem is an ongoing problem. Symptoms have improved. UTI on Admission? No. tw4 03:43 03:10 05/11/2019 02:34 Hospitalization Ordered by Dorene Rosa MD for Observation. lp1 Preliminary diagnosis is Angina pectoris, unspecified. Bed requested for Telemetry/MedSurg (observation). Status is Observation. Condition is Stable. Problem is an ongoing problem. Symptoms have improved. UTI on Admission? No. cg
--- NOTE | 2019-05-11 02:32 | ER ---
Nurse's Notes [facility] Name: Marquis Nelson Age: 49 yrs Sex: Male : 1970 Arrival Date: 05/11/2019 Time: 00:46 Bed 6 Private MD: Diagnosis: Angina pectoris, unspecified Presentation: 05/11 00:45 Presenting complaint: EMS states: Chest pain that began at midnight radiating to left lp1 jaw, patient was watching TV; Took home med of Nitro x1 SL with some relief; Hx of PA. Transition of care: patient was not received from another setting of care. Onset of symptoms was May 11, 2019 at 00:00. Risk Assessment: Do you want to hurt yourself or someone else? Patient reports no desire to harm self or others. Initial Sepsis Screen: Does the patient meet any 2 criteria? No. Patient's initial sepsis screen is negative. Does the patient have a suspected source of infection? No. Patient's initial sepsis screen is negative. Care prior to arrival: Medication(s) given: ASA, 81 mg, x 4, IV initiated. 20 GA, in the left forearm. 00:45 Method Of Arrival: EMS: [facility] lp1 00:45 Acuity: THANH 3 lp1 Historical: - Allergies: 01:53 Flomax; lp1 01:53 Stadol; lp1 01:53 Neurontin; lp1 01:53 Trazodone; lp1 01:53 tramadol; lp1 01:53 Beta Blockers (sensitive/hypotension); lp1 01:53 Ibuprofen; lp1 01:53 Remeron; lp1 01:53 Skelaxin; lp1 01:53 Spironolactone; lp1 - Home Meds: 01:53 allopurinol 300 mg Oral tab 1 tab once daily [Active]; amlodipine 5 mg tab 1 tab twice lp1 a day [Active]; aripiprazole 10 mg oral tab 1 tab once daily [Active]; atorvastatin 40 mg oral tab 1 tab nightly [Active]; 02:04 clonazepam 1 mg Oral tab 1 tab 3 times per day [Active]; Plavix 75 mg Oral tab 1 tab lp1 once daily [Active]; cyanocobalamin (vitamin B-12) 1,000 mcg/mL injection soln 1 mL [Active]; desvenlafaxine succinate oral 100 mg oral 2 tabs once daily [Active]; docusate sodium 100 mg Oral cap 1 cap 2 times per day [Active]; dulaglutide subcutaneous 0.75 mg/ 0.5 ml subcutaneous 0.5 mL once wkly [Active]; ferrous sulfate 325 mg (65 mg iron) Oral tab three times a day [Active]; folic acid 1 mg Oral tab 1 tab once daily [Active]; potassium chloride 20 mEq Oral TbTQ 3 tab 3 times per day [Active]; Lasix 80 mg Oral tab 1 tab 2 times per day [Active]; magnesium oxide 400 mg Oral tab daily [Active]; metformin 500 mg Oral Tb24 1 tab once daily [Active]; methocarbamol 750 mg Oral tab twice a day [Active]; metolazone 2.5 mg oral tab once daily [Active]; 02:10 nitroglycerin 0.4 mg SL subl 1 tab every 5 minutes [Active]; pantoprazole 40 mg oral lp1 TbEC 1 tab 2 times per day [Active]; polyethylene glycol 3350 17 gram/dose oral powd once daily [Active]; ranolazine oral 1000 mg oral 2 times per day [Active]; Suboxone 8-2 mg sublingual film 1 film twice a day [Active]; testosterone 1.25 gram/ actuation (1 %) transdermal glpm once daily [Active]; Vitamin D3 2,000 unit oral tab daily [Active]; warfarin Oral 1 tab [Active]; - PMHx: 01:53 Myocardial infarction; CAD; CHF; AAA; ADD/ADHD; Anemia; Anxiety; Atrial Fib; GERD; High lp1 Cholesterol; Pacemaker; Pulmonary Embolism; - PSHx: 01:53 Hernia repair; lp1 - Immunization history:: Adult Immunizations up to date. - Social history:: Smoking status: Patient/guardian denies using tobacco, the patient reports quitting approximately 10 years ago. - Ebola Screening: : No symptoms or risks identified at this time. Screenin:00 Fall Risk None identified. lp1 02:10 Abuse screen: Denies threats or abuse. Denies injuries from another. Nutritional lp1 screening: No deficits noted. Tuberculosis screening: No symptoms or risk factors identified. Assessment: 01:00 General: Appears uncomfortable, Behavior is appropriate for age. Pain: Complains of lp1 pain in chest Pain currently is 8 out of 10 on a pain scale. Neuro: Level of Consciousness is awake, alert, obeys commands, Oriented to person, place, time, situation. Cardiovascular: Reports chest pain, Patient's skin is warm and dry. Chest pain is described as severe, quality is clutching, is located in left anterior chest wall. Respiratory: Respiratory effort is even, unlabored, Breath sounds are clear bilaterally. GI: No signs and/or symptoms were reported involving the gastrointestinal system. : No signs and/or symptoms were reported regarding the genitourinary system. EENT: No signs and/or symptoms were reported regarding the EENT system. Derm: Skin is intact, Skin is dry, Skin is normal. Musculoskeletal: No deficits noted. 02:21 Reassessment: verbal order from Dr. Joyner for Morphine 4 mg IV, Zofran 4 mg IV. lp1 02:45 Reassessment: Patient at 87% on RA while asleep, placed on NC at 2L; States hx of sleep lp1 apnea; States chest pain relief at this time. 03:33 Reassessment: Patient appears in no apparent distress at this time. Patient states lp1 symptoms have improved. Vital Signs: 00:45 BP 106 / 69; Pulse 84; Resp 14; Temp 97.8(O); Pulse Ox 97% on R/A; Weight 127.91 kg lp1 (R); Height 5 ft. 10 in. (177.80 cm); Pain 8/10; 01:30 BP 102 / 70; Pulse 81; Resp 16; Pulse Ox 98% on R/A; rr5 02:00 BP 107 / 77; Pulse 91; Resp 20; Pulse Ox 97% on R/A; lp1 02:30 BP 112 / 79; Pulse 88; Resp 17; Pulse Ox 95% on R/A; lp1 03:32 BP 113 / 90; Pulse 88; Resp 16; Pulse Ox 96% on 2 lpm NC; Pain 0/10; lp1 03:39 BP 108 / 75; Pulse 82; Resp 19; Pulse Ox 98% on 2 lpm NC; lp1 00:45 Body Mass Index 40.46 (127.91 kg, 177.80 cm) lp1 ED Course: 00:45 Arm band placed on. lp1 00:45 Patient has correct armband on for positive identification. Placed in gown. Bed in low lp1 position. Call light in reach. athletic monitor on. Pulse ox on. NIBP on. 00:46 Patient arrived in ED. tw4 00:46 Nicanor Joyner MD is Attending Physician. tw4 01:00 Maintain EMS IV. Dressing intact. Site clean \T\ dry. Gauge \T\ site: 20 g to L FA. lp 1 01:33 Viviana Tatum, RN is Primary Nurse. lp1 01:50 Triage completed. lp1 01:55 XRAY Chest (1 view) In Process Unspecified. EDMS 02:33 Dorene Rosa MD is Hospitalizing Provider. tw4 03:28 No provider procedures requiring assistance completed. Patient admitted, IV remains in lp1 place. Administered Medications: 02:30 Drug: Zofran 4 mg Route: IVP; Site: left forearm; lp1 03:06 Follow up: Response: No adverse reaction lp1 02:30 Drug: morphine 4 mg Route: IVP; Site: left forearm; lp1 03:06 Follow up: Response: Pain is decreased; RASS: Alert and Calm (0) lp1 Outcome: 02:32 Discharge ordered by . tw4 02:34 Decision to Hospitalize by Provider. tw4 03:28 Condition: stable lp1 03:28 Instructed on the need for admit. 03:38 Admitted to Med/surg accompanied by tech, room 211, with oxygen, with chart, Report lp1 called to NAVJOT Carpio 03:43 Patient left the ED. lp1 Signatures: Dispatcher [employer] EDKY Viviana Tatum, RN RN lp1 Nicanor Jyoner MD MD tw4 Walker Alvarado RN RN rr5
[2019-05-11] MEDS ORDERED: ACETAMINOPHEN 500 MG TAB PO PRN (02:47)
[2019-05-11 03:58] VITALS: BMI 40.7
[2019-05-11] MEDS: ALPRAZOLAM 0.25 MG TABLET PO PRN ×2 (04:21→12:18)
[2019-05-11 05:02] VITALS: TEMP 96.7
[2019-05-11 05:53] LABS: Urine Appearance CLEAR; Urine Bilirubin NEGATIVE (NEG); Urine Blood NEGATIVE (NEG); Urine Color YELLOW; Urine Glucose NEGATIVE (NEG); Urine Microscopic Reflex NO UMIC; Urine Protein NEGATIVE (NEG); Urine Specific Gravity 1.015 (1.005-1.030); Urine Urobilinogen 0.2 mg/dL (0.2-1.0); Urine pH 6.5 (5.0-7.0)
[2019-05-11 06:01] LABS: Absolute Lymphocytes (CBC) 2.1 K/uL (0.7-4.9); Basophils % 0.4 % (0-1.3); Lymphocytes % 15.6 % (15.3-44.8); MPV 8.1 fL (7.6-11.3); RBC Red Blood Cell Count 5.72 M/uL (4.33-5.43)
[2019-05-11 06:16] LABS: Potassium 3.5 mmol/L (3.5-5.1)
--- NOTE | 2019-05-11 06:33 | RAD REPORT ---
EXAM DESCRIPTION: RAD - Chest Single View - 05/11/2019 1:53 am CLINICAL HISTORY: CHEST PAIN Chest pain. COMPARISON: Chest Single View dated 12/07/2018; Chest Single View dated 10/18/2018; Chest Single View dated 10/06/2018; Chest Pa And Lat (2 Views) dated 08/10/2018 FINDINGS: Portable technique limits examination quality. The lungs are grossly clear. The heart is upper limit normal in size. No displaced fractures.Dual arnulfo d pacer device present. IMPRESSION: No acute intrathoracic process suspected.
[2019-05-11 06:51] VITALS: BP 133/75
[2019-05-11] MEDS: MORPHINE 4 MG/ML SYR IV PRN ×3 (06:55→15:59)
[2019-05-11] MEDS ORDERED: ENOXAPARIN 40 MG/0.4 ML SQ SCH (09:00)
[2019-05-11] MEDS ORDERED: METOPROLOL TAR 50 MG TAB PO SCH (09:00)
[2019-05-11] MEDS ORDERED: ASPIRIN EC 81 MG TAB PO SCH (09:00)
--- NOTE | 2019-05-11 09:14 | P.HP ---
Certification for Inpatient Patient admitted to: Observation With expected LOS: <2 Midnights Patient will require the following post-hospital care: None Practitioner: I am a practitioner with admitting privileges, knowledge of patient current condition, hospital course, and medical plan of care. Services: Services provided to patient in accordance with Admission requirements found in Title 42 Section 412.3 of the Code of Federal Regulations Patient History Date of Service: 05/11/19 Reason for admission: Chest pain rule out acute coronary syndrome History of Present Illness: patient is a 49-year-old multiple prior admissions. He comes into the hospital with chest discomfort. His chest pain is typical from his angina symptoms. He had a prior stent placed. Recent cardiac cath did not reveal any lesions that required intervention. Patient recently had a pacemaker placed. He will be admitted to the hospital for further workup. Allergies butorphanol tartrate [From Stadol] Allergy (Verified 05/11/19 04:48) Unknown gabapentin [From Neurontin] Allergy (Verified 05/11/19 04:48) Unknown metaxalone [From Skelaxin] Allergy (Verified 05/11/19 04:48) Unknown metoprolol Allergy (Verified 05/11/19 04:48) severe hypotension mirtazapine [From Remeron] Allergy (Verified 05/11/19 04:48) Itching/Hives/Rash quetiapine [From Seroquel] Allergy (Verified 05/11/19 04:48) Shortness of breath spironolactone Allergy (Verified 05/11/19 04:48) Shortness of breath tamsulosin [From Flomax] Allergy (Verified 05/11/19 04:48) Unknown tramadol Allergy (Verified 05/11/19 04:48) Shortness of breath trazodone Allergy (Verified 05/11/19 04:48) Shortness of breath Beta Blockers (sen Allergy (Uncoded 12/25/17 16:37) Unknown Home Medications: ARIPiprazole [Aripiprazole] 10 mg PO DAILY 05/11/19 Allopurinol [Zyloprim*] 300 mg PO DAILY 05/11/19 Amiloride HCl 10 mg PO TID 05/11/19 Atorvastatin Calcium [Lipitor] 40 mg PO BEDTIME 05/11/19 Buprenorphine HCl/Naloxone HCl [Suboxone 8 mg-2 mg Sl Film] 1 film SL Q12HP PRN 05/11/19 Cholecalciferol (Vitamin D3) [Vitamin D3] 2,000 unit PO DAILY 05/11/19 Clopidogrel Bisulfate [Plavix*] 75 mg PO DAILY 05/11/19 Cyanocobalamin (Vitamin B-12) [Cyanocobalamin Injection] 1,000 mcg IM SEECOM Desvenlafaxine Succinate [Pristiq] 200 mg PO DAILY 05/11/19 Docusate [Colace Cap*] 100 mg PO BIDP PRN 05/11/19 Dulaglutide [Trulicity] 0.75 mg SQ SEECOM 05/11/19 Ferrous Sulfate [Ferrous Sulfate*] 1 tab PO TID 05/11/19 Furosemide 80 mg PO BID 05/11/19 Magnesium Oxide [Magnesium] 400 mg PO DAILY 05/11/19 Metformin ER [Glucophage ER*] 500 mg PO DAILY 05/11/19 Methocarbamol [Robaxin*] 750 mg PO BID 05/11/19 Nitroglycerin [Nitrostat*] 0.4 mg SL SEECOM 05/11/19 Pantoprazole [Protonix Tab*] 40 mg PO BID 05/11/19 Polyethyl Gly 3350 [Glycolax*] 17 gm PO DAILYPRN PRN 05/11/19 Potassium Chloride 3 tab PO TID 05/11/19 Promethazine HCl 25 mg PO Q6HP PRN 05/11/19 Ranolazine [Ranexa] 1,000 mg PO BID 05/11/19 Testosterone [Androgel] 2 pump TOP DAILY 05/11/19 Warfarin Sodium [Coumadin] 10 mg PO DAILY 05/11/19 Zinc 50 mg PO SEECOM 05/11/19 clonazePAM [Klonopin*] 1 mg PO Q6HR 05/11/19 metOLazone [Zaroxolyn*] 2.5 mg PO DAILYPRN PRN 05/11/19 - Past Medical/Surgical History Has patient received pneumonia vaccine in the past: No Diabetic: Yes -: HTN -: Nephrolithiasis -: Obstructive sleep apnea -: Diabetes mellitus type 2 -: Coronary artery disease, stent x1 -: Abdominal aortic aneurysm (3.1 cm) -: Paroxysmal atrial fibrillation -: Hyperlipidemia -: CHF -: Former smoker -: Chronic pain -: Lithotripsy -: Heart catheterization, stent to the right RCA -: right bundle branch block -: pacemaker -: hernia repair Psychosocial/ Personal History: He is 24 years, has no children, he does not work. - Family History Father Medical History: Heart disease, Hypertension, Lung disease Notes: at age 69 CHF, asthma, COPD Mother Medical History: Hypertension Sister Medical History: Hypertension Notes: brain aneurysm - Social History Smoking Status: Never smoker Alcohol use: No CD- Drugs: No Place of Residence: Home Review of Systems 10-point ROS is otherwise unremarkable Physical Examination - Vital Signs Temperature: 96.7 F Blood Pressure: 133/75 Pulse: 73 Respirations: 18 Pulse Ox (%): 96 - Physical Exam General: Alert, In no apparent distress, Oriented x3 HEENT: Atraumatic, PERRLA, Mucous membr. moist/pink, EOMI, Sclerae nonicteric Neck: Supple, 2+ carotid pulse no bruit, No LAD, Without JVD or thyroid abnormality Respiratory: Clear to auscultation bilaterally, Normal air movement Cardiovascular: Regular rate/rhythm, Normal S1 S2, No murmurs Gastrointestinal: Normal bowel sounds, Soft and benign, Non-distended, No tenderness Musculoskeletal: No clubbing, No swelling, No tenderness Integumentary: No rashes Neurological: Normal gait, Normal speech, Normal strength at 5/5 x4 extr, Normal tone, Sensation intact, Cranial nerves 3-12 intact, Normal affect Lymphatics: No axilla or inguinal lymphadenopathy - Studies Laboratory Data (last 24 hrs) 05/11/19 01:30: PT 27.3 H, INR 2.39 05/11/19 01:30: WBC 14.4 H, Hgb 14.9, Hct 44.1, Plt Count 243 05/11/19 01:30: Sodium 135 L, Potassium 3.1 L, BUN 22 H, Creatinine 1.42 H, Glucose 205 H, Magnesium 1.9, Total Bilirubin 0.4, AST 20, ALT 35, Alkaline Phosphatase 133 H Assessment & Plan - Problems (Diagnosis) (1) Chest pain, rule out acute myocardial infarction Current Visit: Yes Status: Acute (2) Atrial fibrillation Onset Date: 05/24/16 Current Visit: No Status: Chronic Qualifiers: Atrial fibrillation type: paroxysmal Qualified Code(s): I48.0 - Paroxysmal atrial fibrillation (3) Coronary artery disease Onset Date: 05/24/16 Current Visit: No Status: Chronic Qualifiers: Coronary Disease-Associated Artery/Lesion type: unspecified vessel or lesion type [place] vs. transplanted heart: unspecified whether [place] or transplanted heart Associated angina: with unspecified angina Qualified Code (s): I25.119 - Atherosclerotic heart disease of [place] coronary artery with unspecified angina pectoris (4) Diabetes mellitus Onset Date: 09/16/16 Current Visit: No Status: Chronic Qualifiers: Diabetes mellitus type: type 2 Diabetes mellitus exterminator helper termite insulin use: without exterminator helper termite use Diabetes mellitus complication status: without complication Qualified Code(s): E11.9 - Type 2 diabetes mellitus without complications (5) Hyperlipidemia Onset Date: 05/24/16 Current Visit: No Status: Chronic Qualifiers: Hyperlipidemia type: unspecified Qualified Code(s): E78.5 - Hyperlipidemia , unspecified (6) Hypertensive disorder, systemic arterial Onset Date: 03/10/17 Current Visit: No Status: Chronic - Plan 1. Serial troponins and EKG 2. Cardiology consultation 3. Echocardiogram and monitor on telemetry 4. Anti-platelet therapy, anti coagulation, beta-sharon, statin, and O2 as needed 5. IV morphine for pain 6. Nitro p.r.n. Discharge Plan: Home Plan to discharge in: 24 Hours - Advance Directives Does patient have a Living Will: No Does patient have a Durable POA for Healthcare: No - Code Status/Comfort Care Code Status Assessed: Yes Code Status: Full Code Critical Care: No Time Spent Managing PTS Care (In Minutes): 40
[2019-05-11 09:17] VITALS: O2SAT 99
--- NOTE | 2019-05-11 09:42 | EKG ---
Test Date: 2019-05-11 Test Time: 00:37:29 Switchboard Installer: LEIGHANN MEASUREMENT RESULTS: Intervals: Rate: 80 VT: 184 QRSD: 136 QT: 394 QTc: 454 [place]: P: 30 VT: 184 QRS: 19 T: 6 INTERPRETIVE STATEMENTS: Normal sinus rhythm Right bundle branch block Inferior infarct, age undetermined Abnormal ECG Compared to ECG 12/07/2018 15:00:58 No significant changes Electronically Signed On 05-11-19 09:41:44 DIRECTOR SEMICONDUCTOR by Ole Tesfaye
--- NOTE | 2019-05-11 09:42 | EKG ---
Test Date: 2019-05-11 Test Time: 08:24:32 Robotic Technician: VANESSA MEASUREMENT RESULTS: Intervals: Rate: 74 IA: 184 QRSD: 152 QT: 440 QTc: 488 [place]: P: 47 IA: 184 QRS: 13 T: 9 INTERPRETIVE STATEMENTS: Normal sinus rhythm Right bundle branch block Lateral infarct, age undetermined Cannot rule out Inferior infarct, age undetermined Abnormal ECG Compared to ECG 05/11/2019 00:37:29 No significant changes Electronically Signed On 05-11-19 09:41:33 HANDICRAFTS TEACHER by Ole Tesfaye
--- NOTE | 2019-05-11 13:47 | ECHO ---
HEIGHT: 5 ft 10 in WEIGHT: 283 lb 12.8 oz DATE OF STUDY: 05/11/[address]: Ole Tesfaye MD 2-DIMENSIONAL: YES M.MODE: YES DOPPLER: YES COLOR FLOW: YES TDS: NO PORTABLE: NO DEFINITY: NO BUBBLE STUDY: NO DIAGNOSIS: CHEST PAIN CARDIAC HISTORY: CATHERIZATION: YES SURGERY: NO PROSTHETIC VALVE: NO PACEMAKER: YES MEASUREMENTS (cm) DIASTOLIC (NORMALS) SYSTOLIC (NORMALS) IVSd 1.0 (0.6-1.2) LA Diam 3.4 (1.9-4.0) LVEF 61% LVIDd 4.7 (3.5-5.7) LVIDs 3.1 (2.0-3.5) %FS 32% LVPWd 1.1 (0.6-1.2) Ao Diam 3.3 (2.0-3.7) 2 DIMENSIONAL ASSESSMENT: RIGHT ATRIUM: NORMAL LEFT ATRIUM: NORMAL RIGHT VENTRICLE: NORMAL LEFT VENTRICLE: NORMAL TRICUSPID VALVE: NORMAL MITRAL VALVE: MITRAL ANNULAR CALCIFICATION PULMONIC VALVE: NORMAL AORTIC VALVE: NORMAL PERICARDIAL EFFUSION: NONE AORTIC ROOT: NORMAL LEFT VENTRICULAR WALL MOTION: NORMAL. DOPPLER/COLOR FLOW: NORMAL. COMMENTS: NORMAL LEFT VENTRICULAR EJECTION FRACTION AND FUNCTION. MITRAL ANNULAR CALCIFICATION. NO WALL MOTION ABNORMALITY. NO EFFUSION. TECHNOLOGIST: MOLLY TORRES
--- NOTE | 2019-05-12 03:06 | CON ---
Date of Consultation: 05/11/[address] Rosa's service on 05/11/2019. I saw the patient on 05/11/2019. Reason For Consultation: Chest pain. History Of Present Illness: Mr. Nelson is a 49-year-old male. He sees Dr. Posada and Dr. Adkins at [facility] [place]. He has had complicated past cardiac history including atrial fibrillation, hypertens ion, coronary artery disease status post stent. He has a small abdominal aortic aneurysm 3.4 cm that is being observed. He has had history of congestive heart failure, pacemaker, pulmonary embolus, dy slipidemia, sleep apnea, kidney stones, and obesity. His chest pain was sharp, stabbing, left-sided, moved from the right to the left and occasionally towards the back. No radiation to the arm. No na usea, vomiting, diaphoresis, PND, orthopnea, pedal edema, palpitation, or syncope. Symptoms were non exertional. By the time I saw him, he is already ruled out for an CA. Allergies: HE IS ALLERGIC TO NEURONTIN, METOPROLOL, ALDACTONE, AND FLOMAX. Review of Systems: Negative. Social History: Negative. Family History: Noncontributory. Medications: At home include Lipitor, amiloride, Plavix, Lasix, Pristiq, iron, Ranexa, Coumadin, and Zaroxolyn. Physical Examination: General: He weighed 283 pounds. HEENT: Negative. Neck: Supple with no bruit. Chest: Clear to auscultation and percussion. Cardiac: Revealed regular rhythm and rate. No murmurs, gallops, or rubs. Abdomen: Obese, but benign. Extremities: Revealed no clubbing, cyanosis, or edema. Vital Signs: Stable. He was afebrile. Diagnostic Data: Showed creatinine of 1.39. White count of 13,000. EKG showed right bundle-branch block. Chest x-ray was negative. Troponin was negative. BNP was negative. Impression And Plan: 1.Atypical chest pain, most likely musculoskeletal. Echocardiogram is pending. The patient has elijah ointment coming up with Dr. Adkins and apparently has had recent stress test. We will see what the echocardiogram shows prior to making any final decision, but so far he is ruled out for myocardial in farction. EKG shows chronic right bundle-branch block. Chest x-ray is negative. 2.History of coronary artery disease, status post percutaneous coronary intervention. 3.Hypertension, well controlled. 4.Atrial fibrillation, well controlled. He is taking Coumadin. 5.Congestive heart failure history, probably diastolic. 6.Dyslipidemia. 7.History of pacemaker. 8.Pulmonary embolus history. 9.Sleep apnea. 10.History of kidney stones. 11.Obesity. 12.Coumadin therapy that he is taking for history of pulmonary embolus and atrial fibrillation. Con tinue medical therapy. See what the echo shows. If it is negative, he can go home and follow up wit h his hr manager at [facility]. CYNTHIA/CHELSI Voice ID: [id number] Report ID: [id number]
== END 2019-05-11 17:51 | disposition home or self-care (01) ==
LOC: ER 00:34 → ERHOLD 02:48 → 2ND 03:33
PROVIDERS: ADMIT Hospitalist; ATTEND Hospitalist
DX: R07.89 Other chest pain (principal); I25.119 Atherosclerotic heart disease of native coronary artery with unspecified angina pectoris; I48.0 Paroxysmal atrial fibrillation; E78.5 Hyperlipidemia, unspecified; I44.7 Left bundle-branch block, unspecified; Z86.711 Personal history of pulmonary embolism; E11.9 Type 2 diabetes mellitus without complications; I10 Essential (primary) hypertension; G47.33 Obstructive sleep apnea (adult) (pediatric); I50.9 Heart failure, unspecified; Z79.01 Long term (current) use of anticoagulants
CPT/HCPCS: 93005 ×2; 93306; 85025 ×2; 80048 ×2; 36415; 83735; 85610; 80061; 80076; 81003; 84484 ×3; 83880; 71045; 96375; 96374; 99285; J1650; J2405; G0378 ×2

== ENCOUNTER 2019-11-07 20:30 | Emergency (ER) | payer OTHER ==
--- OUTSIDE RECORDS SUMMARY | 2019-11-07 20:32 | XMS REPORT | Clinical Summary ---
:[address] [facility] Address [address] [place] [address] Care Team Providers Name Role Phone MD Madelaine Primary Care Provider Unavailable Allergies Active Allergy Reactions Severity Noted Date Comments Beta-Blockers 12/05/2015 Per patient "h eart rate (Beta-Adrenergic Blocking dr díaz, lethargic, weak" Agts) Tamsulosin 12/05/2015 "too over power " Butorphanol Tartrate 12/05/2015 "tachyc ardia" Tramadol 03/20/2016 Tachycardia Medications Medication Sig Dispensed Refills Start Date End Date Status pantoprazole (PROTONIX) Take 1 tablet (40 30 tablet 0 12/11/19 16 Active 40 MG tablet mg total) by [...] Essential hypertension with goal blood pressure less t fowler 130/80 12/19/2015 GREGORIO on CPAP 12/19/2015 Diastolic [...] Health Maintenance Due Date Last Done Comments COLON CANCER SCREENING COLONOSCOPY 1970 INFLUENZA VACCINE (Season Ended) 2020 Implants Implanted Type Area Reimbursement Specialist Device Shelf Model / Identifier Expiration Date Ser ial / Lot Promus Premier TripTouch Implanted: Qty: 1 on 12/05/2015 Results Not on fileafter 11/06/2018 Advance Directives For more information, please contact:[place] [id number] [place], [place] [phone] Code Status Date Activated Date Inactivated Comments [...]
--- OUTSIDE RECORDS SUMMARY | 2019-11-07 20:32 | XMS REPORT | Clinical Summary ---
:1970 Author Organization [facility] Address [address] [place] [address] Care Team Providers Name Role Phone Asked, No Pcp Primary Care Provider Unavailable Allergies Active Allergy Reactions Severity Noted Date Comments Acebutolol Other (See Comments) 07/27/2017 All bet a blockers cause bradycardia Atenolol Other (See Comments) 07/27/2017 Bisoprolol Other (See Comments) 07/27/2017 Carvedilol Other (See Comments) 07/27/2017 Meperidine Other (See Comments) 07/27/2017 Patient unsure why documented in m r Trazodone Other (See Comments) 07/27/2017 sweatin g Tamsulosin Other (See Comments) 07/27/2017 Dilatio n of eyes and couldn't see Metoprolol Other (See Comments) 07/27/2017 But smith s take PRN for afib ??? Gabapentin Other (See Comments) 07/27/2017 Flushed and over sedation Propranolol Other (See Comments) 07/27/2017 Quetiapine Other (See Comments) 07/27/2017 akathis ia Metaxalone Other (See Comments) 07/27/2017 Flushed and over sedation Butorphanol Tartrate Other (See Comments) 07/27/2017 tachycardia Tramadol Palpitations Low 07/27/2017 Medications Medication Sig Dispensed Refills Start Date End Date Status allopurinol (ZYLOPRIM) Take 300 mg by 0 Active 300 MG mouth daily. tabletIndications: prevention of acute gout attack atorvastatin (LIPITOR) Take 40 mg by 0 Active 40 MG tabletIndications: mouth nightly. hyperlipidemia clonAZEPAM (KlonoPIN) 1 Take by mouth. 0 Active MG tabletIndications: Take 1/2 tablet anxiety in morning, 1/2 tablet at noon, and 1 tablet in the evening docusate sodium (COLACE) Take 100 mg by 0 Active 100 MG mouth daily. capsuleIndications: constipation furosemide (LASIX) 80 mg Take 80 mg by 0 Active tabletIndications: edema mouth 2 (two) times a day. clopidogrel (PLAVIX) 75 Take 75 mg by 0 Active mg tabletIndications: mouth daily. thrombosis prevention after PCI metOLazone (ZAROXOLYN) Take 2.5 mg by 0 Active 2.5 MG mouth daily as tabletIndications: needed (for hypertension weight gain greater than 5 poounds). metoprolol tartrate Take 12.5 mg by 0 Active (LOPRESSOR) 25 mg mouth daily as tabletIndications: Acute needed (if pulse Coronary Syndrome greater than 110). [address] 1 spray 0 Ac tive (NITROLINGUAL) 400 under the tongue mcg/spray every 5 (five) sprayIndications: angina minutes as needed for chest pain. insulin ASPART (NovoLOG) Inject 10 Units 0 Active 100 unit/mL insulin under the skin 3 penIndications: type 2 (three) times a diabetes mellitus day before meals. pantoprazole (PROTONIX) Take 40 mg by 0 Active 40 MG EC mouth daily. tabletIndications: gastroesophageal reflux disease insulin GLARGINE (LANTUS Inject 20 Units 0 Active SOLOSTAR) 100 unit/mL under the skin injection nightly. (pen)Indications: type 2 diabetes mellitus potassium chloride Take 20 mEq by 0 Active (K-DUR,KLOR-CON) 10 MEQ mouth 3 (three) CR tabletIndications: times a day. hypokalemia prevention Three tabs QID methocarbamol (ROBAXIN) Take 750 mg by 0 Active 750 MG mouth 2 (two) tabletIndications: times a day. muscle spasm ranolazine (RANEXA) Take 1,000 mg by 0 Active 1,000 mg 12 hr mouth 2 (two) tabletIndications: times a day. Chronic Stable Angina Pectoris (DO NOT USE) warfarin (COUMADIN) 10 Take 10 mg by 0 Active MG tabletIndications: mouth. On pulmonary Friday, thromboembolism , Friday, Friday warfarin (COUMADIN) 7.5 Take 7.5 mg by 0 Active MG tabletIndications: mouth. On pulmonary Friday, thromboembolism Friday, Friday cyanocobalamin 1,000 Inject 1,000 mcg 0 Active mcg/mL into the injectionIndications: shoulder, thigh, prevention of vitamin or buttocks once B12 deficiency a week. For 3 months, and then will reassess B12 levels desvenlafaxine (PRISTIQ) Take 100 mg by 0 Active 100 MG 24 hr mouth daily. tabletIndications: major depressive disorder ferrous sulfate 325 (65 Take 325 mg by 0 Active FE) MG mouth 3 (three) tabletIndications: iron times a day with deficiency anemia meals. AMILoride (MIDAMOR) 5 MG Take 5 mg by 0 Active tabletIndications: mouth 2 (two) hypertension times a day. folic acid (FOLVITE) 1 Take 1 mg by 0 Active MG tabletIndications: mouth daily. folate deficiency Active Problems Problem Noted Date Major depressive disorder, recurrent episode, severe 0 01/24/2018 MDD (major depressive disorder), recurrent severe, wit hout psychosis 01/24/2018 Severe episode of recurrent major depressive disorder, without psychotic 07/27/2017 features Chronic pain syndrome 07/27/2017 Social History Tobacco Use Types Packs/Day Years [...] Health Maintenance Due Date Last Done Comments DIABETIC RETINAL EYE EXAM 1970 DIABETIC FOOT EXAM 1979 URINE MICROALBUMIN 1979 COLONOSCOPY SCREENING 2019 SHINGLES VACCINES (#1) 2019 INFLUENZA VACCINE 01/22/2020 Results Not on fileafter 11/06/2018 Insurance Payer Benefit Plan / Subscriber ID Effective Phone Address T e Group Dates COMMERCIAL MISC MISC COMMERCIAL xxxxxxxxxxxx 2017-Prese Commercial nt MISC MEDICAID MISC MEDICAID xxxxxxxxxxxx 2017-Prese HMO REPLACEMENT REPLACEMENT nt Advance Directives For more information, please contact: [phone] Type Date Recorded Patient Independent Beauty Consultant Explanati on Advance Directives, Living Will and Medical Power of Virtual Reality Specialist Code Status Date Activated Date Inactivated Comments Full Code 01/24/2018 5:07 PM 01/29/2018 3:21 PM Code Status decision reached by: Patient Full Code 07/27/2017 10:23 AM 07/31/2017 4:58 PM Code Status decision reached by: Patient Full Code 07/27/2017 5:07 AM 07/27/2017 10:23 AM Code Status decision reached by: Patient
--- OUTSIDE RECORDS SUMMARY | 2019-11-07 20:37 | XMS REPORT | Continuity of Care Document ---
:1970 Author Organization [employer] Care Team Providers Name Role Phone [facility] [employer] Unavailable Un available Problems Problem Status Onset Classification Date Comments Sourc e Date Reported Discharge Diagnosis: 05/20/2016 Chest pain 016 [place] CHEST PAIN Active [facility] 016 [place] ACS, CHEST PAIN Active Bc rial 016 [place] Discharge Diagnosis: 04/28/2016 Flank pain 016 [place] KIDNEY STONES Active Memori al 016 [place] Discharge Diagnosis: 03/08/2016 Acute chest pain 016 [place] Discharge Diagnosis: 03/05/2016 Renal calculus 016 [place] KIDNEY STONE Active Memoria l 016 [place] PYELONEPHRITIS Active Memor ial 016 [place] 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) [place] Congestive heart Resolved Problem 05/20/2016 2L fluid failure (disorder) restrictio [place] n/24hrs Diabetes mellitus Resolved Problem 05/20/2016 M H (disorder) [place] Hypercholesterolemia Resolved Problem 05/20/2016 MH (disorder) [place] Hypertensive disorder, Resolved Problem 05/20/2016 systemic arterial [place] (disorder) Kidney stone Resolved Problem 05/20/2016 MH (disorder) [place] Myocardial infarction Resolved Problem 05/20/2016November 14 , MH (disorder) 2015 [place] Right bundle branch Resolved Problem 05/20/2016 block (disorder) [place] Sleep apnea (finding) Resolved Problem 05/20/[address] [facility] TUBULO-INTERSTITIAL Active [facility] NEPHRITIS, NOT [facility] [place] CHEST PAIN, Active [facility] UNSPECIFIED [place] Medications Medication Details Route Status Patient Ordering Order Source Instructions Provider Date Aspirin Notes: Do not Inactive crush or chew. 2015 [place] (Same As: Ecotrin) Saline Flush Notes: (Same Inactive 0.9% as: BD 2016 [place] Posiflush) Plavix Notes: (Same No Longer As: Plavix) Active 2015 [place] metoprolol 25 mg 25 mg = 1 tab, Active oral tablet, PO, Daily, # 2016 [place] extended release 30 tab, 0 Refill(s) Protonix Notes: Tablet Inactive should not be 2015 [place] chewed or crushed. (Same as: Protonix) Lisinopril Notes: (Same Inactive as: Prinivil, 2015 [place] Zestril) Aspirin 325 MG Notes: Take Inactive Oral Tablet with food. 2015 [place] atorvastatin 40 40 mg = 1 tab, Active H mg oral tablet PO, Bedtime, # 2016 [place] 90 tab, 1 Refill(s) Alprazolam 1 MG Notes: With No Longer Oral Tablet food or milk Active 2015 [place] [Xanax] (Same as: Xanax) Lipitor Notes: (Same No Longer as: Lipitor) Active 2015 [place] Clindamycin Notes: (Same No Longer As: Cleocin) Active 2015 [place] Saline Flush Notes: No Longer 0.9% preservative Active 2015 [place] free. Insulin, Aspart, Notes: Roll in No Longer Human palms of hands Active 2015 [place] gently; Do not shake vigorously. (Same as: NovoLOG) "single patient use only" WASTE: F/P - Black; E - Municipal Trash Bin Stable for 28 days at room temperature. Expires in days from Date Glucagon 1 mg, Route: No Longer IM, Drug form: Active 2015 [place] PDR/INJ, PRN, Dosing Weight 127.273, kg, PRN Blood Glucose Results, Start date: 05/05/16 20:27:00 [employer], Duration: 30 day, Stop date: 06/04/16 20:26:00 [employer] Dextrose 50% 12.5 gm, 25 No Longer Syringe mL, Route: Active 2015 [place] IVP, Drug Form: INJ, Dosing Weight 127.273, kg, PRN, PRN Blood Glucose Results, Start date: 05/05/16 20:27:00 [employer], Duration: 30 day, Stop date: 06/04/16 20:26:00 DIRECT[employer] Morphine Notes: (Same No Longer as:MORPhine Active 2015 [place] Sulfate) Plavix Notes: (Same Inactive As: Plavix) 2015 [place] Saline Flush Notes: (Same No Longer 0.9% as: BD Active 2015 [place] Posiflush) Albuterol 0.833 Notes: (Same No Longer H MG/ML / as: Duoneb) Active 2015 [place] Ipratropium Simms 0.167 MG/ML Inhalant Solution Nystatin 100 Notes: (Same No Longer UNT/MG Topical as:Mycostatin, Active [address] [facility] Powder Nilstat) For external use only. Nitroglycerin Notes: (Same No Longer as:Tridil) Active 2015 [place] Final conc = 0.4 mg/ml. Premix bottle. heparin additive 500 mL, Rate: No Longer 25,000 unit [12 22.73 ml/hr, Active 2015 [place] unit/kg/hr] + Infuse over: Premix Diluent 22 hr, Route: Dextrose 5% 500 IV, Dosing mL Weight 94.7 kg, Total Volume: 500 mL, Start date: 05/05/16 19:43:00 [employer], Duration: 30 day, Stop date: 06/04/16 19:42:00 [employer] Heparin 60 Route: IVP, No Longer unit/kg Bolus PRN, 5,800 Active 2015 [place] (Heparin Dosing unit, 5.8 mL, Weight) Drug form: INJ, PRN, Heparin Protocol, Start date: 05/05/16 19:43:00 [employer] Stop date: 06/04/16 19:42:00 DIRECT[employer] Heparin 30 Route: IVP, No Longer unit/kg Bolus PRN, 2,900 Active 2015 [place] (Heparin Dosing unit, 2.9 mL, Weight) Drug form: INJ, PRN, Heparin Protocol, Start date: 05/05/16 19:43:00 [employer] Stop date: 06/04/16 19:42:00 DIRECT[employer] Heparin - one 4,000 unit, 4 Inactive time bolus for mL, Route: 2015 [place] ACS IVP, Drug form: INJ, ONCE, Dosing Weight 127.273, kg, Priority: STAT, Start date: 05/05/16 19:43:00 [employer], Stop date: 05/05/16 19:43:00 [employer] Morphine Notes: (Same Inactive as:MORPhine 2015 [place] Sulfate) Nitroglycerin 1 inch, Route: Inactive 0.02 MG/MG TOP, Dosing 2015 [place] Topical Ointment Weight 127.273, kg, ONCE, STAT, Start date: 05/05/16 17:40:00 [employer], Stop date: 05/05/16 17:40:00 DIRECT[employer] Aspirin 81 MG 243 mg, Route: Inactive Chewable Tablet PO, Drug form: 2015 [place] CHEWTAB, ONCE, Dosing Weight 127.273, kg, Priority: STAT, Start date: 05/05/16 17:17:00 DIRECT[employer], Stop date: 05/05/16 17:17:00 DIRECT[employer] OF [employer] Morphine 4 mg, Route: Inactive IVP, ONCE, [place] Dosing Weight 127.273, kg, Priority: STAT, Start date: 05/05/16 17:15:00 DIRECT[employer] OF [employer], Stop date: 05/05/16 17:15:00 DIRECT[employer] OF [employer] Saline Flush Notes: No Longer 0.9% preservative Active 2015 [place] free. Acetaminophen 1 - 2 tab, PO, No Longer H 300 MG / Codeine Q4H, PRN Pain, Active 2015 [place] Phosphate 30 MG X 2 day, # 20 Oral Tablet tab, 0 [Tylenol with Refill(s) Codeine #3] Morphine Notes: (Same Inactive as:MORPhine 2015 [place] Sulfate) Zofran Notes: (Same Inactive as: Zofran) 2015 [place] MEDICATION WASTE Product Size: 4 mg Product Wasted: ___ mg Morphine Notes: (Same Inactive as:MORPhine 2015 [place] Sulfate) Saline Flush Notes: (Same Inactive 0.9% as: BD 2015 [place] Posiflush) Acetaminophen 1 tab, PO, Active 300 MG / Codeine Q6H, PRN Pain, 2015 [place] Phosphate 30 MG X 5 day, # 20 Oral Tablet tab, 0 Refill(s) Morphine 4 mg, Route: Inactive IVP, ONCE, 2015 [place] Dosing Weight 129.091, kg, Priority: STAT, Start date: 03/05/16 8:44:00 CDT, Stop date: 03/05/16 8:44:00 CDT Ondansetron 4 mg, Route: Inactive IVP, Drug 2015 [place] form: INJ, ONCE, Dosing Weight 129.091, kg, Priority: STAT, Start date: 03/05/16 7:35:00 CDT, Stop date: 03/05/16 7:35:00 CDT Aspirin 324 mg, Route: Inactive PO, ONCE, 2015 [place] Dosing Weight 129.091, kg, Priority: STAT, Start date: 03/05/16 7:22:00 CDT, Stop date: 03/05/16 7:22:00 CDT Morphine 2 mg, Route: Inactive IVP, ONCE, 2015 [place] Dosing Weight 129.091, kg, Priority: STAT, Start date: 03/05/16 7:22:00 CDT, Stop date: 03/05/16 7:22:00 CDT Saline Flush Notes: (Same Inactive 0.9% as: BD 2015 [place] Posiflush) Dilaudid Notes: Same Inactive as: Dilaudid 2015 [place] Ketorolac 4 days Inactive MEDICATION 2015 [place] WASTE Product Size: 30 mg Product Wasted: ___ mg Morphine Notes: (Same Inactive as:MORPhine 2015 [place] Sulfate) Ondansetron Notes: (Same Inactive as: Zofran) 2015 [place] MEDICATION WASTE Product Size: 4 mg Product Wasted: ___ mg Saline Flush Notes: (Same Inactive 0.9% as: BD 2015 [place] Posiflush) Sodium Chloride 1,000 mL, Inactive 0.154 MEQ/ML 2,000 ml/hr, 2015 [place] Injectable Infuse Over: Solution 30 minutes, Route: IV, 1,000, Drug form: INJ, ONCE, Priority: STAT, Dosing Weight 128.636 kg, Start date: 03/02/16 5:25:00 CDT, Duration: 1 doses or times, Stop date: 03/02/16 5:25:00 CDT Acetaminophen 1 tab, PO, Active 300 MG / Codeine Q6H, PRN Pain, 2015 [place] Phosphate 30 MG # 28 tab, 0 Oral Tablet Refill(s) [Tylenol with Codeine #3] Protonix Notes: Tablet No Longer should not be Active 2015 [place] chewed or crushed. (Same as: Protonix) Lipitor Notes: (Same No Longer as: Lipitor) Active 2015 [place] Morphine Notes: (Same No Longer as:MORPhine Active 2015 [place] Sulfate) Lovenox Notes: (Same No Longer as: Lovenox) Active 2015 [place] Lisinopril Notes: (Same No Longer as: Prinivil, Active 2015 [place] Zestril) Imdur Notes: (Same No Longer as:Imdur) "Do Active 2015 [place] Not Crush" Take on empty stomach/ full glass of water. Do not crush Plavix Notes: (Same No Longer As: Plavix) Active 2015 [place] Aspirin 81 MG Notes: Do not No Longer Enteric Coated crush or chew. [facility] (Same As: Ecotrin) Zofran ODT Notes: (Same No Longer as: Zofran Active 2015 [place] ODT) Nitroglycerin Notes: (Same No Longer 0.4 MG as:Nitroquick, Active 2015 [place] Sublingual Nitrostat) "Do Tablet Not Crush" [Nitrostat] Sublingual tablet Alprazolam 1 MG Notes: With No Longer Oral Tablet food or milk Active 2015 [place] [Xanax] (Same as: Xanax) pneumococcal Notes: (Same Inactive capsular as: Pneumovax 2015 [place] polysaccharide 23) type 1 vaccine / Refrigerate pneumococcal capsular polysaccharide type 10A vaccine / pneumococcal capsular polysaccharide type 11A vaccine / pneumococcal capsular polysaccharide type 12F vaccine / pneumococcal capsular polysacchar Ondansetron 4 MG 4 mg = 1 tab, No Longer Disintegrating PO, Q12H, PRN Active 2016 [place] Tablet [Zofran] Nausea, 0 Refill(s) Aspirin 81 MG 81 mg = 1 tab, Active Enteric Coated PO, Daily, # 2016 [place] Tablet 90 tab, 3 Refill(s) Nitroglycerin 0.4 mg = 1 No Longer 0.4 MG tab, SL, Active 2016 [place] Sublingual Q5Min, PRN Tablet Chest Pain, # [Nitrostat] 100 tab, 0 Refill(s) pantoprazole 40 40 mg = 1 tab, Active 02/16/ H MG Enteric PO, Daily, # 2016 [place] Coated Tablet 30 tab, 0 [Protonix] Refill(s) 24 HR Isosorbide 30 mg = 1 tab, Active Mononitrate 30 PO, QAM, # 30 2016 [place] MG Extended tab, 0 Release Tablet Refill(s) [Imdur] Hydroxyzine 25 mg = 1 tab, No Longer Hydrochloride 25 PO, Bedtime, Active 2015 [place] MG Oral Tablet PRN Sleep, # 30 tab, 0 Refill(s) Furosemide 20 MG 20 mg = 1 tab, Active Oral Tablet PO, Daily, # 2016 [place] 30 tab, 0 Refill(s) Potassium 20 mEq = 1 Active Chloride 20 MEQ tab, PO, 2016 [place] Extended Release Daily, # 90 Tablet tab, 1 [Klor-Con] Refill(s) Alprazolam 1 MG 1 mg = 1 tab, Active Oral Tablet PO, Q8H, PRN 2015 [place] [Xanax] Anxiety, 0 Refill(s) Metformin 1 tab, PO, Active hydrochloride BID, # 60 tab, 2016 [place] 500 MG / 0 Refill(s) repaglinide 1 MG Oral Tablet Acetaminophen 1 tab, PO, No Longer 300 MG / Codeine Q6H, PRN Pain, Active 2015 [place] Phosphate 30 MG # 28 tab, 0 Oral Tablet Refill(s) [Tylenol with Codeine #3] lisinopril 2.5 2.5 mg = 1 Active mg oral tablet tab, PO, 2015 [place] Daily, # 30 tab, 0 Refill(s) clopidogrel 75 75 mg = 1 tab, Active MG Oral Tablet PO, Daily, # 2016 [place] [facility] [Plavix] 30 tab, 0 Refill(s) atorvastatin 80 80 mg = 1 tab, Active H MG Oral Tablet PO, Bedtime, # 2016 [place] [Lipitor] 30 tab, 0 Refill(s) Ceftriaxone 1 gm, Route: Inactive IVPB, Drug 2015 [place] form: PDR/INJ, ONCE, Dosing Weight 129.545, kg, Priority: STAT, Start date: 02/17/16 7:01:00 CDT, Stop date: 02/17/16 7:01:00 CDT Dilaudid 0.5 mg, Route: Inactive 02/16[facility] IVP, ONCE, 2015 [place] Dosing Weight 129.545, kg, Priority: STAT, Start date: 02/17/16 6:28:00 CDT, Stop date: 02/17/16 6:28:00 CDT Zofran 4 mg, Route: Inactive IVP, Drug 2015 [place] form: INJ, ONCE, Dosing Weight 129.545, kg, Priority: STAT, Start date: 02/17/16 5:32:00 CDT, Stop date: 02/17/16 5:32:00 CDT Dilaudid 0.5 mg, Route: Inactive 02/16[facility] IVP, ONCE, 2015 [place] Dosing Weight 129.545, kg, Priority: STAT, Start date: 02/17/16 5:32:00 CDT, Stop date: 02/17/16 5:32:00 CDT Saline Flush Notes: (Same Inactive 0.9% as: BD 2015 [place] Posiflush) Allergies, Adverse Reactions, Alerts Substance Category Reaction Severity Reaction Status Date Comments S ource type Reported beta Assertion Drug Active MH blockers allergy [place] Flomax Assertion Drug Active MH allergy [place] Stadol Assertion Drug Active MH allergy [place] traMADol Assertion Drug Active allergy [place] Immunizations Immunization Date Given Site Status Last Updated Comments Farrah rce pneumococcal 02/17/2016 Not Given MH [place] 23-valent vaccine Results Order Name Results Value Reference Date Interpretation Comments Farrah rce Range URINE AND UA Mucus Few /LPF None Seen 05/17 [place] /LPF [place] URINE AND UA Leuk Est Negative Negative 05/17 [place] (05/17/16 5:16 PM) [place] URINE AND UA Bili Negative Negative 05/17 STOOL *NA* /2015 [place] (05/17/16 5:16 PM) URINE AND UA Ketones Negative Negative 05/17 [place] mg/dL mg/dL [place] URINE AND UA Nitrite Negative Negative 05/17 [place] (05/17/16 5:16 PM) [place] URINE AND UA 0.2 0.1 - 1.0 05/17 STOOL Urobilinogen [place] URINE AND UA Turbidity Clear Clear 05/17 [place] (05/17/16 5:16 PM) [place] URINE AND UA Blood Negative Negative 05/17 [place] (05/17/16 5:16 PM) [place] URINE AND UA Glucose Negative Negative 05/17 [place] mg/dL mg/dL [place] URINE AND UA Protein Negative Negative 05/17 [place] mg/dL mg/dL [place] URINE AND UA pH 6.5 5.0 - 8.0 05/17 STOOL [place] URINE AND UA Spec Grav 1.020 <=1.030 05/17 STOOL [place] URINE AND UA Color Yellow Yellow 05/17 STOOL *NA* /2015 [place] (05/17/16 5:16 PM) URINE AND UA Sq Epi Rare /LPF Few /LPF 05/17 STOOL [place] URINE AND UA Bacteria Occasional None Seen 05/17 [place] /HPF /HPF [place] URINE AND UA RBC 0-2 /HPF 0 - 2 05/17 STOOL [place] URINE AND UA WBC 0-2 /HPF None Seen 05/17 STOOL /HPF /2015 [place] CARDIAC Total CK 74 12 - 191 05/17 ENZYMES [place] CARDIAC CK MB 0.8 0.5 - 3.6 05/17 ENZYMES [place] CARDIAC Troponin-I <0.02 0.00 - 05/17 MH ENZYMES 0.40 [place] CARDIAC CK-MB INDEX 1.1 0.0 - 2.5 05/17 MH ENZYMES [place] CHEM PANEL eGFR 79 05/17 Result Comment: The [place] eGFR is calculated using the CKD-EPI formula. In most young, healthy individuals the eGFR will be >90 mL/min/1.73m2 . The eGFR declines with age. An eGFR of 60-89 may be normal in some populations, particularly the elderly, for whom the CKD-EPI formula has not been extensively validated. Use of the eGFR is not recommended in the following populations:< br/>
Suzanne viduals with unstable creatinine concentration s, including patients and those with serious co-morbid conditions.<b r/>
Patie nts with extremes in muscle mass or diet.

The data above are obtained from the National Kidney Disease Education Program (NKDEP) which additionally recommends that when the eGFR is used in patients with extremes of body mass index for purposes of drug dosing, the eGFR should be multiplied by the estimated BMI. CHEM PANEL Chloride Lvl 106 95 - 109 05/17 [place] CHEM PANEL CO2 28 24 - 32 05/17 [place] CHEM PANEL Calcium Lvl 8.8 8.5 - 10.5 05/17 [place] CHEM PANEL Bili Total 0.4 0.2 - 1.3 05/17 [place] CHEM PANEL AGAP 9.7 10.0 - 11 MH 20.0 [place] CHEM PANEL B/C Ratio 14 6 - 25 05/17 [place] CHEM PANEL ASPARTATE 14 0 - 37 05/17 TRANSAMINASE [place] CHEM PANEL Total 7.7 6.4 - 8.4 05/17 Protein [place] CHEM PANEL Globulin 4.4 2.7 - 4.2 05/17 [place] CHEM PANEL A/G Ratio 0.8 0.7 - 1.6 05/17 [place] CHEM PANEL Glucose Lvl 148 70 - 99 05/17 [place] CHEM PANEL BUN 15 7 - 22 05/17 [place] CHEM PANEL Creatinine 1.11 0.50 - 11 MH Lvl 1.40 [place] CHEM PANEL Sodium Lvl 140 135 - 145 05/17 [place] CHEM PANEL Potassium 3.7 3.5 - 5.1 05/17 MH Lvl /2015 [place] CHEM PANEL Albumin Lvl 3.3 3.5 - 5.0 05/17 [place] CHEM PANEL Alk Phos 129 39 - 136 05/17 [place] CHEM PANEL ALANINE 30 0 - 65 05/17 AMINOTRANS /2015 [place] RASE HEMATOLOGY MPV 7.3 7.4 - 10.4 05/17 [place] HEMATOLOGY Platelet 281 133 - 450 05/17 [place] HEMATOLOGY RBC X 10x6 5.30 4.70 - 05/17 MH 6.10 [place] HEMATOLOGY WBC X 10x3 10.5 3.7 - 10.4 05/17 [place] HEMATOLOGY Hgb 12.4 14.0 - 05/17 MH 18.0 [place] HEMATOLOGY Hct 36.8 42.0 - 05/17 MH 54.0 [place] HEMATOLOGY MCV 69.4 80.0 - 05/17 MH 94.0 [place] HEMATOLOGY MCH 23.4 27.0 - 05/17 MH 31.0 [place] HEMATOLOGY MCHC 33.7 32.0 - 05/17 MH 36.0 [place] HEMATOLOGY RDW 17.1 11.5 - 05/17 MH 14.5 [place] HEMATOLOGY aPTT 35.4 22.9 - 05/17 MH 35.8 /2015 [place] HEMATOLOGY PROTIME 13.1 12.0 - 05/17 MH 14.7 [place] HEMATOLOGY INR 0.97 0.85 - 05/17 MH 1.17 [place] HEMATOLOGY Eosinophils 1.1 0.0 - 4.0 05/17 [place] HEMATOLOGY Monocytes 6.7 2.0 - 12.0 05/17 [place] HEMATOLOGY Segs-Bands # 7.2 1.5 - 8.1 05/17 [place] HEMATOLOGY Basophils 1.1 0.0 - 1.0 05/17 [place] HEMATOLOGY Lymphocytes 2.4 1.0 - 5.5 05/17 MH # /2015 [place] HEMATOLOGY Monocytes # 0.7 0.0 - 0.8 05/17 [place] HEMATOLOGY Eosinophils 0.1 0.0 - 0.5 05/17 MH # /2016 [place] HEMATOLOGY Microcyte 2+ None Seen 05/17 *ABN* /2015 [place] (05/17/16 4:01 PM) HEMATOLOGY Basophils # 0.1 0.0 - 0.2 05/17 [place] HEMATOLOGY Lymphocytes 22.3 20.0 - 05/17 MH 40.0 /2015 [place] HEMATOLOGY Segs 68.8 45.0 - 05/17 MH 75.0 /2015 [place] CARDIAC Troponin-I <0.02 0.00 - 05/06 MH ENZYMES 0.40 [place] HEMATOLOGY aPTT 50.1 22.9 - 05/06 MH 35.8 /2015 [place] ELECTROLYTE AGAP 10.8 10.0 - 05/06 MH S 20.0 [place] ELECTROLYTE CO2 28 24 - 32 05/06 S [place] ELECTROLYTE Chloride Lvl 105 95 - 109 05/06 S [place] ELECTROLYTE Calcium Lvl 8.7 8.5 - 10.5 05/06 S [place] ELECTROLYTE eGFR 103 05/06 Result S Comment: The [place] eGFR is calculated using the CKD-EPI formula. In most young, healthy individuals the eGFR will be >90 mL/min/1.73m2 . The eGFR declines with age. An eGFR of 60-89 may be normal in some populations, particularly the elderly, for whom the CKD-EPI formula has not been extensively validated. Use of the eGFR is not recommended in the following populations:< br/>
Suzanne viduals with unstable creatinine concentration s, including patients and those with serious co-morbid conditions.<b r/>
Patie nts with extremes in muscle mass or diet.

The data above are obtained from the National Kidney Disease Education Program (NKDEP) which additionally recommends that when the eGFR is used in patients with extremes of body mass index for purposes of drug dosing, the eGFR should be multiplied by the estimated BMI. ELECTROLYTE Glucose Lvl 123 70 - 99 05/06 S [place] ELECTROLYTE Creatinine 0.86 0.50 - 05/06 S Lvl 1.40 [place] ELECTROLYTE BUN 18 7 - 22 05/06 S [place] ELECTROLYTE Potassium 3.8 3.5 - 5.1 05/06 MH S Lvl /2015 [place] ELECTROLYTE Sodium Lvl 140 135 - 145 05/06 S /2015 [place] HEMATOLOGY Microcyte 2+ None Seen 05/06 MH *ABN* /2015 [place] (05/06/16 2:42 AM) HEMATOLOGY Eosinophils 0.2 0.0 - 0.5 05/06 MH # /2015 [place] HEMATOLOGY Monocytes # 0.8 0.0 - 0.8 05/06 /2015 [place] HEMATOLOGY Monocytes 7.9 2.0 - 12.0 05/06 MH /2015 [place] HEMATOLOGY Lymphocytes 2.5 1.0 - 5.5 05/06 MH # /2015 [place] HEMATOLOGY Segs-Bands # 6.5 1.5 - 8.1 05/06 [place] HEMATOLOGY Basophils 0.4 0.0 - 1.0 05/06 [place] HEMATOLOGY Eosinophils 1.7 0.0 - 4.0 05/06 /2015 [place] HEMATOLOGY Lymphocytes 24.8 20.0 - 05/06 MH 40.0 [place] HEMATOLOGY Segs 65.2 45.0 - 05/06 MH 75.0 [place] HEMATOLOGY RBC X 10x6 5.11 4.70 - 05/06 MH 6.10 [place] HEMATOLOGY Hct 36.2 42.0 - 05/06 MH 54.0 [place] HEMATOLOGY Hgb 11.8 14.0 - 05/06 MH 18.0 [place] HEMATOLOGY Platelet 272 133 - 450 05/06 [place] HEMATOLOGY RDW 17.1 11.5 - 05/06 MH 14. [place] HEMATOLOGY MPV 7.8 7.4 - 10.4 05/06 MH [place] HEMATOLOGY WBC X 10x3 9.9 3.7 - 10.4 05/06 [place] HEMATOLOGY MCHC 32.5 32.0 - 05/06 MH 36.0 [place] HEMATOLOGY MCH 23.0 27.0 - 05/06 MH 31.0 [place] HEMATOLOGY MCV 70.8 80.0 - 05/06 MH 94.0 [place] HEMATOLOGY PROTIME 13.4 12.0 - 05/06 MH 14. [place] HEMATOLOGY INR 1.00 0.85 - 05/06 MH 1. [place] HEMATOLOGY aPTT 49.1 22.9 - 11/14 MH 35.8 [place] URINE AND UA Bacteria None Seen None Seen 05/06 STO[place] (05/05/16 10:09 PM) /2015 [place] URINE AND UA Blood Negative Negative 05/06 [place] (05/05/16 10:09 PM) [place] URINE AND UA RBC 0-2 /HPF 0 - 2 05/06 STOOL /2015 [place] URINE AND UA WBC None Seen None Seen 05/06 [place] (05/05/16 10:09 PM) /2015 [place] URINE AND UA Sq Epi None Seen Few 05/06 [place] (05/05/16 10:09 PM) /2015 [place] URINE AND UA Leuk Est Negative Negative 05/06 [facility] (05/05/16 10:09 PM) /2015 [place] URINE AND UA 0.2 0.1 - 1.0 05/06 [place] Urobilinogen /2015 [place] URINE AND UA Nitrite Negative Negative 05/06 [place] (05/05/16 10:09 PM) [place] URINE AND UA Color Yellow Yellow 05/06 [place] *NA* /2015 [place] (05/05/16 10:09 PM) URINE AND UA Glucose Negative Negative 05/06 [place] (05/05/16 10:09 PM) /2015 [place] URINE AND UA Bili Negative Negative 05/06 [place] *NA* /2015 [place] (05/05/16 10:09 PM) URINE AND UA Ketones Negative Negative 05/06 [place] *NA* /2015 [place] (05/05/16 10:09 PM) URINE AND UA Protein Negative Negative 05/06 [place] (05/05/16 10:09 PM) /2015 [place] [facility] URINE AND UA pH 6.0 5.0 - 8.0 05/06 STOOL /2015 [place] URINE AND UA Turbidity Clear Clear 05/06 [place] (05/05/16 10:09 PM) /2015 [place] URINE AND UA Spec Grav >=1.030 <=1.030 05/06 [place] *ABN* /2015 [place] (05/05/16 10:09 PM) BACTERIAL - MRSA by PCR Negative 05/06 SEROLOGY (05/05/16 10:06 PM) /2015 [place] HEMATOLOGY Basophils # 0.1 0.0 - 0.2 05/06 [place] HEMATOLOGY Microcyte 2+ None Seen 05/06 MH *ABN* /2015 [place] (05/05/16 9:38 PM) HEMATOLOGY Eosinophils 1.4 0.0 - 4.0 05/06 /2015 [place] HEMATOLOGY Basophils 0.7 0.0 - 1.0 05/06 [place] HEMATOLOGY Segs-Bands # 7.1 1.5 - 8.1 05/06 [place] HEMATOLOGY Lymphocytes 24.8 20.0 - 05/06 MH 40.0 /2015 [place] HEMATOLOGY Monocytes 7.9 2.0 - 12.0 05/06 [place] HEMATOLOGY Monocytes # 0.9 0.0 - 0.8 05/06 /2015 [place] HEMATOLOGY Eosinophils 0.2 0.0 - 0.5 05/06 MH # /2015 [place] HEMATOLOGY Lymphocytes 2.7 1.0 - 5.5 05/06 MH # /2016 [place] HEMATOLOGY Segs 65.2 45.0 - 05/06 MH 75.0 [place] HEMATOLOGY MCV 69.7 80.0 - 05/06 MH 94.0 /2015 [place] HEMATOLOGY MCH 23.3 27.0 - 05/06 MH 31.0 [place] HEMATOLOGY Hgb 12.2 14.0 - 05/06 MH 18.0 [place] HEMATOLOGY Hct 36.5 42.0 - 05/06 MH 54.0 /2015 [place] HEMATOLOGY MCHC 33.4 32.0 - 05/06 MH 36.0 [place] HEMATOLOGY Platelet 276 133 - 450 05/06 [place] HEMATOLOGY MPV 7.2 7.4 - 10.4 05/06 Fields [place] [facility] RDW 17.5 11.5 - 05/06 [facility] 14.5 [facility] [place] HEMAT[facility] WBC X 10x3 11.0 3.7 - 10.4 05/06 /2015 [facility] [place] HEMATOLOGY RBC X 10x6 5.24 4.70 - 05/06 MH 6.10 [place] HEMATOLOGY INR 1.05 0.85 - 05/06 MH 1.17 [place] HEMATOLOGY PROTIME 13.9 12.0 - 05/06 [facility] 14. [place] HEMATOLOGY aPTT 35.3 22.9 - 05/06 MH 35.8 [place] CARDIAC CK-MB INDEX 1.0 0.0 - 2.5 05/05 MH ENZYMES /2016 [place] CARDIAC CK MB 0.8 0.5 - 3.6 05/05 ENZYMES [place] CARDIAC Total CK 80 12 - 191 05/05 ENZYMES [place] CARDIAC Troponin-I <0.02 0.00 - 05/05 ENZYMES 0.40 [facility] [place] CHEM PANEL Alk Phos 133 39 - 136 05/05 [facility] [place] CHEM PANEL Glucose Lvl 137 70 - 99 05/05 [facility] [place] CHEM PANEL BUN 17 7 - 22 05/05 [place] CHEM PANEL Creatinine 1.01 0.50 - 05/05 Lvl 1.40 [place] CHEM PANEL Sodium Lvl 139 135 - 145 05/05 [place] CHEM PANEL ALANINE 34 0 - 65 05/05 [facility]FE [place] R[facility] CHEM PANEL Albumin Lvl 3.3 3.5 - 5.0 05/05 [place] CHEM PANEL Chloride Lvl 105 95 - 109 05/05 [place] CHEM PANEL eGFR 88 05/05 [facility] Comment: The [place] eGFR is calculated using the CKD-EPI formula. In most young, healthy individuals the eGFR will be >90 mL/min/1.73m2 . The eGFR declines with age. An eGFR of 60-89 may be normal in some populations, particularly the elderly, for whom the CKD-EPI formula has not been extensively validated. Use of the eGFR is not recommended in the following populations:< br/>
Suzanne viduals with unstable creatinine concentration s, including patients and those with serious co-morbid conditions.<b r/>
Patie nts with extremes in muscle mass or diet.

The data above are obtained from the National Kidney Disease Education Program (NKDEP) which additionally recommends that when the eGFR is used in patients with extremes of body mass index for purposes of drug dosing, the eGFR should be multiplied by the estimated BMI. CHEM PANEL Bili Total 0.4 0.2 - 1.3 05/05 [place] CHEM PANEL Calcium Lvl 8.6 8.5 - 10.5 05/05 [place] CHEM PANEL Potassium 3.7 3.5 - 5.1 05/05 MH Lvl [place] CHEM PANEL CO2 28 24 - 32 05/05 [place] CHEM PANEL Total 7.8 6.4 - 8.4 05/05 MH Protein /2015 [place] CHEM PANEL ASPARTATE 16 0 - 37 05/05 MH TRANSAMINASE /2015 [place] CHEM PANEL AGAP 9.7 10.0 - 11 MH 20.0 [place] CHEM PANEL B/C Ratio 17 6 - 25 05/05 [facility] [place] CHEM PANEL Globulin 4.5 2.7 - 4.2 05/05 [place] CHEM PANEL A/G Ratio 0.7 0.7 - 1.6 05/05 [place] HEMATOLOGY Monocytes # 0.8 0.0 - 0.8 05/05 [place] HEMATOLOGY Eosinophils 0.1 0.0 - 0.5 05/05 MH # /2015 [place] HEMATOLOGY Basophils # 0.1 0.0 - 0.2 05/05 [place] HEMATOLOGY Microcyte 2+ None Seen 05/05 [facility] *ABN* /2015 [place] (05/05/16 5:11 PM) HEMATOLOGY Monocytes 7.5 2.0 - 12.0 05/05 [place] HEMATOLOGY Eosinophils 1.1 0.0 - 4.0 05/05 [place] HEMATOLOGY Basophils 0.7 0.0 - 1.0 05/05 [place] HEMATOLOGY Segs-Bands # 7.5 1.5 - 8.1 05/05 [place] HEMATOLOGY Lymphocytes 2.1 1.0 - 5.5 05/05 MH # /2015 [place] HEMATOLOGY Lymphocytes 19.9 20.0 - 05/05 MH 40.0 [place] HEMATOLOGY Segs 70.8 45.0 - 05/05 MH 75.0 [place] HEMATOLOGY Platelet 306 133 - 450 05/05 [place] HEMATOLOGY MCHC 33.6 32.0 - 05/05 MH 36.0 [place] HEMATOLOGY MPV 7.3 7.4 - 10.4 05/05 [place] HEMATOLOGY RDW 16.9 11.5 - 05/05 MH 14. [place] HEMATOLOGY MCV 69.5 80.0 - 05/05 MH 94.0 [place] HEMATOLOGY MCH 23.4 27.0 - 05/05 MH 31.0 [place] HEMATOLOGY Hct 37.4 42.0 - 05/05 MH 54.0 /2015 [place] HEMATOLOGY Hgb 12.6 14.0 - 11 MH 18.0 /2015 [place] HEMATOLOGY WBC X 10x3 10.6 3.7 - 10.4 05/05 [facility] [place] HEMATOLOGY RBC X 10x6 5.39 4.70 - 11/ MH 6.10 [place] CHEM PANEL Globulin 4.2 2.7 - 4.2 04/25 [place] CHEM PANEL B/C Ratio 19 6 - 25 04/25 [place] CHEM PANEL AGAP 9.9 10.0 - 11 MH 20.0 [place] CHEM PANEL A/G Ratio 0.8 0.7 - 1.6 04/25 [place] CHEM PANEL eGFR 100 04/25 [facility] Comment: The [place] eGFR is calculated using the CKD-EPI formula. In most young, healthy individuals the eGFR will be >90 mL/min/1.73m2 . The eGFR declines with age. An eGFR of 60-89 may be normal in some populations, particularly the elderly, for whom the CKD-EPI formula has not been extensively validated. Use of the eGFR is not recommended in the following populations:< br/>
Suzanne viduals with unstable creatinine concentration s, including patients and those with serious co-morbid conditions.<b r/>
Patie nts with extremes in muscle mass or diet.

The data above are obtained from the National Kidney Disease Education Program (NKDEP) which additionally recommends that when the eGFR is used in patients with extremes of body mass index for purposes of drug dosing, the eGFR should be multiplied by the estimated BMI. CHEM PANEL Alk Phos 128 39 - 136 04/25 [place] CHEM PANEL Albumin Lvl 3.4 3.5 - 5.0 04/25 [place] CHEM PANEL ALANINE 30 0 - 65 04/25 [facility]RANSFE [place] R[place] CHEM PANEL Total 7.6 6.4 - 8.4 04/25 Protein [place] CHEM PANEL Bili Total 0.3 0.2 - 1.3 04/25 [place] CHEM PANEL ASPARTATE 14 0 - 37 04/25 TRANSAMINASE [place] CHEM PANEL CO2 26 24 - 32 04/25 [place] CHEM PANEL Calcium Lvl 8.7 8.5 - 10.5 11 /2015 [place] CHEM PANEL Chloride Lvl 104 95 - 109 04/25 /2015 [facility] [place] CHEM PANEL Potassium 3.9 3.5 - 5.1 04/25 MH Lvl /2015 [place] CHEM PANEL Glucose Lvl 221 70 - 99 04/25 [place] CHEM PANEL Sodium Lvl 136 135 - 145 04/25 [place] CHEM PANEL Creatinine 0.91 0.50 - 04/25 MH Lvl 1.40 /2015 [place] CHEM PANEL BUN 17 7 - 22 11 /2015 [place] HEMATOLOGY RBC X 10x6 5.40 4.70 - 11 MH 6.10 [place] HEMATOLOGY WBC X 10x3 10.3 3.7 - 10.4 04/25 [place] HEMATOLOGY Hgb 12.9 14.0 - 04/25 MH 18.0 [place] HEMATOLOGY MPV 7.2 7.4 - 10.4 04/25 [place] HEMATOLOGY RDW 16.8 11.5 - 04/25 MH 14.5 [place] HEMATOLOGY Platelet 313 133 - 450 04/25 [place] HEMATOLOGY MCH 23.8 27.0 - 04/25 MH 31.0 [place] HEMATOLOGY MCHC 34.0 32.0 - 04/25 MH 36.0 [place] HEMATOLOGY Hct 37.9 42.0 - 04/25 MH 54.0 [place] HEMATOLOGY MCV 70.1 80.0 - 04/25 MH 94.0 [place] HEMATOLOGY Lymphocytes 2.3 1.0 - 5.5 04/25 MH # /2016 [place] HEMATOLOGY Eosinophils 0.1 0.0 - 0.5 04/25 MH # /2015 [place] HEMATOLOGY Monocytes # 0.6 0.0 - 0.8 04/25 /2015 [facility] [place] HEMATOLOGY Basophils # 0.1 0.0 - 0.2 04/25 /2015 [place] HEMATOLOGY Microcyte 2+ None Seen 04/25 MH *ABN* /2015 [place] (04/25/16 6:17 PM) HEMATOLOGY Segs 69.2 45.0 - 04/25 MH 75.0 [place] HEMATOLOGY Segs-Bands # 7.1 1.5 - 8.1 04/25 [place] HEMATOLOGY Monocytes 6.1 2.0 - 12.0 04/25 [place] HEMATOLOGY Basophils 1.1 0.0 - 1.0 04/25 [place] HEMATOLOGY Eosinophils 1.1 0.0 - 4.0 04/25 [facility] [place] HEMATOLOGY Lymphocytes 22.5 20.0 - 04/25 MH 40.0 [place] URINE AND UA WBC 0-2 /HPF None Seen 04/25 [facility] /HPF /2015 [facility] [place] URINE AND UA RBC 0-2 /HPF 0 - 2 04/25 [facility] [place] URINE AND UA Bacteria Occasional None Seen 04/25 [facility] /HPF /HPF /2015 [place] URINE AND UA Leuk Est Negative Negative 04/25 [facility] (04/25/16 6:17 PM) [place] URINE AND UA Sq Epi Occasional Few /LPF 04/25 [facility] /LPF [place] URINE AND UA pH 6.0 5.0 - 8.0 04/25 [facility] [place] URINE AND UA Protein Negative Negative 04/25 [facility] (04/25/16 6:17 PM) [place] URINE AND UA Glucose 250 mg/dL Negative 04/25 [facility] mg/dL [place] URINE AND UA Ketones Negative Negative 04/25 [facility] *NA* /2015 [place] (04/25/16 6:17 PM) URINE AND UA Bili Negative Negative 04/25 [facility] *NA* /2015 [place] (04/25/16 6:17 PM) URINE AND UA Blood Negative Negative 04/25 [facility] (04/25/16 6:17 PM) [place] URINE AND UA 0.2 0.1 - 1.0 04/25 [facility] Urobilinogen /2015 [place] URINE AND UA Nitrite Negative Negative 04/25 [facility] (04/25/16 6:17 PM) [place] URINE AND UA Color Yellow Yellow 04/25 [facility] *NA* /2015 [place] (04/25/16 6:17 PM) URINE AND UA Turbidity Clear Clear 04/25 [facility] (04/25/16 6:17 PM) [place] URINE AND UA Spec Grav 1.020 <=1.030 04/25 STOOL [place] CARDIAC Troponin-I <0.02 0.00 - 03/05 MH ENZYMES 0.40 [place] CARDIAC CK MB 0.8 0.5 - 3.6 03/05 MH ENZYMES /2015 [place] CARDIAC Total CK 60 12 - 191 03/05 MH ENZYMES /2015 [place] CARDIAC CK-MB INDEX 1.3 0.0 - 2.5 03/05 MH ENZYMES /2015 [place] CARDIAC Troponin-I <0.02 0.00 - 03/05 MH ENZYMES 0.40 [place] CARDIAC Total CK 66 12 - 191 03/05 MH ENZYMES [place] CARDIAC CK MB 0.6 0.5 - 3.6 03/05 MH ENZYMES /2015 [place] CARDIAC CK-MB INDEX 0.9 0.0 - 2.5 03/05 ENZYMES [place] CHEM PANEL eGFR 103 03/05 Result Comment: The [place] eGFR is calculated using the CKD-EPI formula. In most young, healthy individuals the eGFR will be >90 mL/min/1.73m2 . The eGFR declines with age. An eGFR of 60-89 may be normal in some populations, particularly the elderly, for whom the CKD-EPI formula has not been extensively validated. Use of the eGFR is not recommended in the following populations:< br/>
Suzanne viduals with unstable creatinine concentration s, including patients and those with serious co-morbid conditions.<b r/>
Patie nts with extremes in muscle mass or diet.

The data above are obtained from the National Kidney Disease Education Program (NKDEP) which additionally recommends that when the eGFR is used in patients with extremes of body mass index for purposes of drug dosing, the eGFR should be multiplied by the estimated BMI. CHEM PANEL AGAP 12.0 10.0 - 03/05 MH 20.0 [place] CHEM PANEL Globulin 4.4 2.7 - 4.2 03/05 [place] CHEM PANEL B/C Ratio 14 6 - 25 03/05 [place] CHEM PANEL A/G Ratio 0.8 0.7 - 1.6 03/05 [facility] [place] CHEM PANEL Calcium Lvl 8.8 8.5 - 10.5 03/05 [place] CHEM PANEL Bili Total 0.6 0.2 - 1.3 03/05 [place] CHEM PANEL Total 7.8 6.4 - 8.4 09/13 MH Protein /2015 [place] CHEM PANEL ASPARTATE 16 0 - 37 09 [facility] TRANSAMINASE /2015 [place] CHEM PANEL Alk Phos 128 39 - 136 09 [facility] [place] CHEM PANEL Glucose Lvl 97 70 - 99 03/05 [facility] [place] CHEM PANEL Creatinine 0.88 0.50 - 09 MH Lvl 1.40 /2015 [place] CHEM PANEL BUN 12 7 - 22 03/05 [place] CHEM PANEL Sodium Lvl 138 135 - 145 03/05 [place] CHEM PANEL ALANINE 32 0 - 65 03/05 AMINOTRANSFE /2015 [place] RASE CHEM PANEL Albumin Lvl 3.4 3.5 - 5.0 03/05 [facility] [place] CHEM PANEL Potassium 4.0 3.5 - 5.1 03/05 MH Lvl /2015 [place] CHEM PANEL Chloride Lvl 105 95 - 109 03/05 [place] CHEM PANEL CO2 25 24 - 32 03/05 [facility] [place] HEMATOLOGY Platelet 294 133 - 450 03/05 [place] HEMATOLOGY MPV 7.4 7.4 - 10.4 03/05 [place] HEMATOLOGY WBC X 10x3 10.0 3.7 - 10.4 03/05 [place] HEMATOLOGY RDW 16.6 11.5 - 03/05 MH 14.5 [place] HEMATOLOGY MCH 24.1 27.0 - 03/05 MH 31.0 [place] HEMATOLOGY MCHC 33.4 32.0 - 03/05 MH 36.0 [place] HEMATOLOGY MCV 72.2 80.0 - 03/05 MH 94.0 [place] HEMATOLOGY Hct 38.1 42.0 - 03/05 MH 54.0 [place] HEMATOLOGY RBC X 10x6 5.28 4.70 - 03/05 MH 6.10 [place] HEMATOLOGY Hgb 12.7 14.0 - 03/05 MH 18.0 [place] HEMATOLOGY Microcyte 1+ None Seen 03/05 [facility] *ABN* /2015 [place] (03/05/16 7:30 AM) HEMATOLOGY Basophils # 0.1 0.0 - 0.2 03/05 [place] HEMATOLOGY Monocytes # 0.7 0.0 - 0.8 03/05 [place] HEMATOLOGY Eosinophils 0.1 0.0 - 0.5 03/05 MH # /2016 [place] HEMATOLOGY Segs-Bands # 7.5 1.5 - 8.1 03/05 /2015 [place] HEMATOLOGY Lymphocytes 1.6 1.0 - 5.5 03/05 MH # /2016 [place] HEMATOLOGY Eosinophils 1.2 0.0 - 4.0 03/05 /2015 [place] HEMATOLOGY Basophils 0.6 0.0 - 1.0 03/05 /2015 [place] HEMATOLOGY Segs 75.1 45.0 - 03/05 MH 75.0 /2015 [place] HEMATOLOGY Monocytes 7.4 2.0 - 12.0 03/05 [place] HEMATOLOGY Lymphocytes 15.7 20.0 - 03/05 MH 40.0 [place] URINE AND UA RBC 0-2 /HPF 0 - 2 03/02 STOOL /2015 [place] URINE AND UA Sq Epi None Seen Few 03/02 [facility] (03/02/16 8:22 AM) [place] URINE AND UA WBC None Seen None Seen 03/02 [facility] (03/02/16 8:22 AM) [place] URINE AND UA pH 6.0 5.0 - 8.0 03/02 [facility]OL /2015 [place] URINE AND UA Protein Negative Negative 03/02 [facility] mg/dL mg/dL [place] URINE AND UA Glucose Negative Negative 03/02 [facility] mg/dL mg/dL [place] URINE AND UA Ketones Negative Negative 03/02 [facility] mg/dL mg/dL [place] URINE AND UA Bili Negative Negative 03/02 [facility] *NA* /2015 [place] (03/02/16 8:22 AM) URINE AND UA Color Yellow Yellow 03/02 [facility] *NA* /2015 [place] (03/02/16 8:22 AM) URINE AND UA Turbidity Clear Clear 03/02 [facility] (03/02/16 8:22 AM) [place] URINE AND UA Spec Grav 1.015 <=1.030 03/02 STOOL /2015 [place] URINE AND UA Blood Negative Negative 03/02 [facility] (03/02/16 8:22 AM) [place] URINE AND UA 0.2 0.1 - 1.0 03/02 [facility] Urobilinogen /2015 [place] URINE AND UA Nitrite Negative Negative 03/02 [facility] (03/02/16 8:22 AM) [place] URINE AND UA Leuk Est Negative Negative 03/02 [facility] (03/02/16 8:22 AM) [place] CHEM PANEL A/G Ratio 0.7 0.7 - 1.6 10 [place] CHEM PANEL Globulin 4.6 2.7 - 4.2 03/02 [place] CHEM PANEL B/C Ratio 16 6 - 25 / MH [place] CHEM PANEL AGAP 10.4 10.0 - 09/ MH 20.0 /2015 [place] CHEM PANEL Total 8.0 6.4 - 8.4 / MH Protein [place] CHEM PANEL Bili Total 0.3 0.2 - 1.3 03/02 [place] CHEM PANEL Calcium Lvl 8.7 8.5 - 10.5 03/02 [place] CHEM PANEL CO2 26 24 - 32 03/02 [place] CHEM PANEL Chloride Lvl 106 95 - 109 03/02 [place] CHEM PANEL Sodium Lvl 138 135 - 145 03/02 [place] CHEM PANEL Potassium 4.4 3.5 - 5.1 03/02 MH Lvl [place] CHEM PANEL eGFR 83 03/02 Result Comment: The [place] eGFR is calculated using the CKD-EPI formula. In most young, healthy individuals the eGFR will be >90 mL/min/1.73m2 . The eGFR declines with age. An eGFR of 60-89 may be normal in some populations, particularly the elderly, for whom the CKD-EPI formula has not been extensively validated. Use of the eGFR is not recommended in the following populations:< br/>
Suzanne viduals with unstable creatinine concentration s, including patients and those with serious co-morbid conditions.<b r/>
Patie nts with extremes in muscle mass or diet.

The data above are obtained from the National Kidney Disease Education Program (NKDEP) which additionally recommends that when the eGFR is used in patients with extremes of body mass index for purposes of drug dosing, the eGFR should be multiplied by the estimated BMI. CHEM PANEL ASPARTATE 13 0 - 37 /10 MH [place] CHEM PANEL Creatinine 1.07 0.50 - 09 MH Lvl 1.40 [place] CHEM PANEL BUN 17 7 - 22 03/02 [place] CHEM PANEL Glucose Lvl 106 70 - 99 03/02 [place] CHEM PANEL Alk Phos 127 39 - 136 03/02 [place] CHEM PANEL Albumin Lvl 3.4 3.5 - 5.0 03/02 [place] CHEM PANEL ALANINE 33 0 - 65 03/02 AMINOTRANS [place] CHEM PANEL Lipase Lvl 164 73 - 393 03/02 [place] HEMATOLOGY Basophils # 0.1 0.0 - 0.2 03/02 [place] HEMATOLOGY Microcyte 1+ None Seen 03/02 MH *ABN* /2015 [place] (03/02/16 5:41 AM) HEMATOLOGY Monocytes 6.7 2.0 - 12.0 03/02 [place] HEMATOLOGY Lymphocytes 21.9 20.0 - 03/02 MH 40.0 [place] HEMATOLOGY Eosinophils 1.5 0.0 - 4.0 03/02 [place] HEMATOLOGY Segs 69.1 45.0 - 03/02 MH 75.0 [place] HEMATOLOGY Monocytes # 0.8 0.0 - 0.8 03/02 [place] HEMATOLOGY Lymphocytes 2.6 1.0 - 5.5 03/02 MH [place] HEMATOLOGY Eosinophils 0.2 0.0 - 0.5 03/02 MH # /2015 [place] HEMATOLOGY Segs-Bands # 8.1 1.5 - 8.1 03/02 [place] HEMATOLOGY Basophils 0.8 0.0 - 1.0 03/02 [place] HEMATOLOGY WBC X 10x3 11.8 3.7 - 10.4 03/02 [place] HEMATOLOGY Hct 37.4 42.0 - 03/02 MH 54.0 [place] HEMATOLOGY RBC X 10x6 5.18 4.70 - 03/02 MH 6.10 [place] HEMATOLOGY Hgb 12.5 14.0 - 03/02 MH 18.0 [place] HEMATOLOGY MCH 24.1 27.0 - 03/02 MH 31.0 [place] HEMATOLOGY RDW 16.7 11.5 - 03/02 MH 14. [place] HEMATOLOGY MCHC 33.4 32.0 - 09 MH 36.0 [place] HEMATOLOGY MCV 72.1 80.0 - 03/02 MH 94.0 [place] HEMATOLOGY MPV 7.7 7.4 - 10.4 03/02 [place] HEMATOLOGY Platelet 303 133 - 450 03/02 [place] ELECTROLYTE Potassium 4.4 3.5 - 5.1 02/18 MH S Lvl /2015 [place] ELECTROLYTE Chloride Lvl 104 95 - 109 02/18 S [place] ELECTROLYTE Sodium Lvl 136 135 - 145 02/18 S [place] ELECTROLYTE Glucose Lvl 147 70 - 99 02/18 S [place] ELECTROLYTE Creatinine 0.88 0.50 - 02/18 S Lvl 1.40 [place] ELECTROLYTE BUN 10 7 - 22 02/18 S [place] ELECTROLYTE eGFR 103 02/18 MH S Comment: The [place] eGFR is calculated using the CKD-EPI formula. In most young, healthy individuals the eGFR will be >90 mL/min/1.73m2 . The eGFR declines with age. An eGFR of 60-89 may be normal in some populations, particularly the elderly, for whom the CKD-EPI formula has not been extensively validated. Use of the eGFR is not recommended in the following populations:< br/>
Suzanne viduals with unstable creatinine concentration s, including patients and those with serious co-morbid conditions.<b r/>
Patie nts with extremes in muscle mass or diet.

The data above are obtained from the National Kidney Disease Education Program (NKDEP) which additionally recommends that when the eGFR is used in patients with extremes of body mass index for purposes of drug dosing, the eGFR should be multiplied by the estimated BMI. ELECTROLYTE Calcium Lvl 8.8 8.5 - 10.5 02/18 S [place] ELECTROLYTE CO2 24 24 - 32 02/18 S [place] ELECTROLYTE AGAP 12.4 10.0 - 02/18 MH S 20.0 [place] HEMATOLOGY RDW 16.3 11.5 - 02/18 MH 14. [place] HEMATOLOGY Platelet 273 133 - 450 02/18 [place] HEMATOLOGY MPV 7.5 7.4 - 10.4 02/18 [place] HEMATOLOGY Hgb 12.8 14.0 - 08/29 MH 18.0 [place] HEMATOLOGY RBC X 10x6 5.31 4.70 - 02/18 MH 6. [place] HEMATOLOGY WBC X 10x3 11.1 3.7 - 10.4 02/18 /2015 [place] HEMATOLOGY MCV 72.6 80.0 - 02/18 MH 94.0 [place] HEMATOLOGY Hct 38.6 42.0 - 02/18 MH 54.0 [place] HEMATOLOGY MCH 24.1 27.0 - 02/18 MH 31.0 [place] HEMATOLOGY MCHC 33.1 32.0 - 02/18 MH 36.0 [place] CARDIAC Troponin-I <0.02 0.00 - 02/17 MH ENZYMES 0.40 [place] HEMATOLOGY Monocytes 7.9 2.0 - 12.0 02/17 [place] HEMATOLOGY Lymphocytes 20.8 20.0 - 02/17 MH 40.0 [place] HEMATOLOGY Segs 69.1 45.0 - 02/17 MH 75.0 [place] HEMATOLOGY Lymphocytes 2.2 1.0 - 5.5 02/17 MH # /2015 [place] HEMATOLOGY Monocytes # 0.8 0.0 - 0.8 02/17 [place] HEMATOLOGY Eosinophils 1.6 0.0 - 4.0 02/17 [place] HEMATOLOGY Segs-Bands # 7.5 1.5 - 8.1 02/17 [place] HEMATOLOGY Basophils 0.6 0.0 - 1.0 02/17 [place] HEMATOLOGY Microcyte 1+ None Seen 02/17 MH *ABN* /2015 [place] (02/18/16 5:20 AM) HEMATOLOGY Basophils # 0.1 0.0 - 0.2 02/17 [place] HEMATOLOGY Eosinophils 0.2 0.0 - 0.5 02/17 MH # /2015 [place] HEMATOLOGY RBC X 10x6 4.91 4.70 - 02/17 MH 6. [place] HEMATOLOGY WBC X 10x3 10.8 3.7 - 10.4 02/17 [place] HEMATOLOGY MCH 24.1 27.0 - 02/17 MH 31. [place] HEMATOLOGY MCV 73.1 80.0 - 02/17 MH 94.0 [place] HEMATOLOGY Hct 35.9 42.0 - 02/17 MH 54.0 [place] HEMATOLOGY Hgb 11.8 14.0 - 02/17 MH 18.0 /2015 [place] HEMATOLOGY MPV 7.4 7.4 - 10.4 02/17 /2015 [place] HEMATOLOGY RDW 16.3 11.5 - 02/17 MH 14.5 [place] HEMATOLOGY MCHC 33.0 32.0 - 02/17 MH 36.0 /2015 [place] HEMATOLOGY Platelet 270 133 - 450 02/17 [place] CARDIAC Troponin-I <0.02 0.00 - 02/16 MH ENZYMES 0.40 [place] CHEM PANEL Procalcitoni <0.05 0.00 - 02/16 n Lvl 0.10 [place] CARDIAC Troponin-I <0.02 0.00 - 02/16 ENZYMES 0.40 [place] URINE AND UA Bacteria None Seen None Seen 02/16 [facility] (02/17/16 6:27 AM) [place] URINE AND UA RBC None Seen 0 - 2 02/16 [facility] (02/17/16 6:27 AM) [place] URINE AND UA Mucus Few /LPF None Seen 02/16 [facility] /LPF /2015 [place] URINE AND UA Sq Epi Rare /LPF Few /LPF 02/16 [facility]OOL /2015 [place] URINE AND UA WBC 0-2 /HPF None Seen 02/16 [facility]OOL /HPF /2015 [place] URINE AND UA Leuk Est Negative Negative 02/16 [facility] (02/17/16 6:27 AM) [place] URINE AND UA 0.2 0.1 - 1.0 02/16 [facility] Urobilinogen /2015 [place] URINE AND UA Nitrite Negative Negative 02/16 [facility] (02/17/16 6:27 AM) [place] URINE AND UA Spec Grav 1.025 <=1.030 02/16 STOOL /2015 [place] URINE AND UA Turbidity Clear Clear 02/16 [facility] (02/17/16 6:27 AM) /2015 [place] URINE AND UA Color Yellow Yellow 02/16 [facility] *NA* /2015 [place] (02/17/16 6:27 AM) URINE AND UA Bili Negative Negative 02/16 [facility] *NA* /2015 [place] (02/17/16 6:27 AM) URINE AND UA Blood Negative Negative 02/16 [facility] (02/17/16 6:27 AM) [facility] URINE AND UA Ketones Negative Negative 02/16 [facility] mg/dL mg/dL [place] URINE AND UA Glucose Negative Negative 02/16 [facility] mg/dL mg/dL [place] URINE AND UA pH 6.0 5.0 - 8.0 02/16 STOOL [place] URINE AND UA Protein Negative Negative 02/16 [facility] mg/dL mg/dL [place] CARDIAC CK-MB INDEX 1.6 0.0 - 2.5 02/16 ENZYMES [place] CARDIAC CK MB 0.9 0.5 - 3.6 02/16 ENZYMES [place] CARDIAC Total CK 58 12 - 191 02/16 ENZYMES [place] CHEM PANEL eGFR 93 02/16 [facility] Comment: The [place] eGFR is calculated using the CKD-EPI formula. In most young, healthy individuals the eGFR will be >90 mL/min/1.73m2 . The eGFR declines with age. An eGFR of 60-89 may be normal in some populations, particularly the elderly, for whom the CKD-EPI formula has not been extensively validated. Use of the eGFR is not recommended in the following populations:< br/>
Suzanne viduals with unstable creatinine concentration s, including patients and those with serious co-morbid conditions.<b r/>
Patie nts with extremes in muscle mass or diet.

The data above are obtained from the National Kidney Disease Education Program (NKDEP) which additionally recommends that when the eGFR is used in patients with extremes of body mass index for purposes of drug dosing, the eGFR should be multiplied by the estimated BMI. CHEM PANEL ALANINE 33 0 - 65 02/16 AMINOTRANSFE [place] RASE CHEM PANEL CO2 23 24 - 32 02/16 [place] CHEM PANEL Calcium Lvl 8.8 8.5 - 10.5 02/16 [place] CHEM PANEL Potassium 4.0 3.5 - 5.1 02/16 Lvl [place] CHEM PANEL Chloride Lvl 105 95 - 109 02/16 [place] CHEM PANEL Creatinine 0.97 0.50 - 02/16 MH Lvl 1.40 [place] CHEM PANEL Glucose Lvl 103 70 - 99 02/16 [place] CHEM PANEL BUN 11 7 - 22 02/16 [place] CHEM PANEL Albumin Lvl 3.4 3.5 - 5.0 02/16 [place] CHEM PANEL Alk Phos 128 39 - 136 02/16 [place] CHEM PANEL Bili Total 0.5 0.2 - 1.3 02/16 [place] CHEM PANEL Sodium Lvl 139 135 - 145 02/16 [place] CHEM PANEL AGAP 15.0 10.0 - 02/16 [facility] 20.0 [place] CHEM PANEL B/C Ratio 11 6 - 25 02/16 [place] CHEM PANEL Total 8.0 6.4 - 8.4 02/16 [place] CHEM PANEL ASPARTATE 16 0 - 37 02/16 [place] CHEM PANEL Globulin 4.6 2.7 - 4.2 02/16 [place] CHEM PANEL A/G Ratio 0.7 0.7 - 1.6 02/16 [place] HEMATOLOGY Microcyte 1+ None Seen 02/16 [facility] *ABN* /2015 [place] (02/17/16 5:50 AM) HEMATOLOGY Basophils # 0.1 0.0 - 0.2 02/16 [place] HEMATOLOGY Basophils 0.5 0.0 - 1.0 02/16 [place] HEMATOLOGY Lymphocytes 2.4 1.0 - 5.5 02/16 [facility] # /2015 [place] HEMATOLOGY Monocytes # 0.8 0.0 - 0.8 02/16 [place] HEMATOLOGY Eosinophils 0.1 0.0 - 0.5 02/16 [facility] # /2015 [place] HEMATOLOGY Segs-Bands # 8.7 1.5 - 8.1 02/16 [place] HEMATOLOGY Eosinophils 1.2 0.0 - 4.0 02/16 [place] HEMATOLOGY Segs 72.1 45.0 - 02/16 [facility] 75.0 [place] HEMATOLOGY Lymphocytes 19.8 20.0 - 02/16 [facility] 40.0 [place] HEMATOLOGY Monocytes 6.4 2.0 - 12.0 02/16 [place] HEMATOLOGY Platelet 327 133 - 450 02/16 [place] HEMATOLOGY MCH 24.1 27.0 - 02/16 MH 31.0 [place] HEMATOLOGY MCHC 33.3 32.0 - 02/16 MH 36.0 /2016 [place] HEMATOLOGY MPV 7.6 7.4 - 10.4 02/16 /2015 [place] HEMATOLOGY RDW 16.3 11.5 - 02/16 MH 14.5 /2015 [place] HEMATOLOGY Hgb 13.1 14.0 - 02/16 MH 18.0 /2015 [place] HEMATOLOGY Hct 39.5 42.0 - 02/16 MH 54.0 /2015 [place] HEMATOLOGY WBC X 10x3 12.0 3.7 - 10.4 02/16 /2015 [place] HEMATOLOGY RBC X 10x6 5.45 4.70 - 02/16 MH 6.10 /2015 [place] HEMATOLOGY MCV 72.6 80.0 - 02/16 MH 94.0 /2015 [place] Pathology Reports No Data Provided for This Section Diagnostic Reports Report Value Date Source Chest 1view DX Portable chest: The cardiome diastinal silhouette and pulmonary vasculature are within normal limits. The lungs and pleural spaces are clear. There are no acute osseous abnormalities. There is no significant change compared to 05/05/2016. 05/17/2016 [facility] IMPRESSION: No acute radiographic abnormality in the chest. 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 IMPRESSION: Stable mildly en larged cardiac silhouette. Atherosclerotic thoracic aorta. No focal consolidation, significant pleural effusion or pneumothorax. SL: [id number] Renal Stone CT EXAM: CT ABDOMEN AND PELVIS WITHOUT CONTRAST 08/2015 [facility] DATE: 04/25/2016 6:07 PM CDT INDICATION: Abdominal pain, acute. COMPARISON: CT dated 03/02/2016. TECHNIQUE: Helical CT imagin g of the abdomen and pelvis performed from lung bases through the lesser trochanters without intravenous contrast. Axial, sagittal, and coronal multiplanar reconstructions were provided. IV contrast: None. CT Radiation Dose: DLP = 1200.51 mGy-cm FINDINGS: Evaluation of the solid organs is limited withou t intravenous contrast. LOWER CHEST: The lung bases are clear of focal consolidation, pleural effusions, and pneumothorax. The heart is unremarkable without evidence for a pericardial effusion. Coronary artery calcifications are partially visualized. LIVER: Diffuse fatty infiltration of the liver i s identified. GALLBLADDER/BILIARY: Unremarkable. PANCREAS: Unremarkable SPLEEN: Unremarkable ADRENALS: Unremarkable KIDNEYS AND URETERS: A punct ate nonobstructive stone is noted within the superior pole the right kidney on series 2 image 42. No obstructing stones are visualized. BLADDER: Unremarkable STOMACH: Unremarkable. BOWEL: Normal in course and caliber without focal wall thickening or evidence for obstruction. There is diverticulosis of the colon without surrounding inflammatory change to suggest diverticulitis. APPENDIX: The appendix is visualized and unremar kable. PELVIS: No pelvic masses are identified. PERITONEUM: No ascites or free air. LYMPH NODES: Unremarkable. VASCULAR: There is atheroscl erotic calcification of the descending aorta without evidence for aneurysmal dilatation. Minimal fusiform dilatation of the infrarenal abdominal aorta is noted. OSSEOUS STRUCTURES: Mild degenerative changes ar e present within the spine. SOFT TISSUES: A fat-containing right inguinal he rnia is visualized. IMPRESSION: 1. Punctate nonobstructive s tone within the superior pole the right kidney. No obstructive stones or hydronephrosis is visualized on the current exam. 2. Diffuse fatty infiltration of the liver. 3. Diverticulosis of the col on without surrounding inflammatory change to suggest diverticulitis. 4. Unchanged fusiform ectasi a of the infrarenal abdominal aorta without aneurysmal dilatation. SL: [id number] Chest 1view DX Patient Name: ANNABEL MCCONNELL 03/05/2016 Zane Minaya : 1970; Age: 45 years y/o Male MR: [id number] * CHEST, portable, 1 view HISTORY: Chest pain COMPARISON: 02/17/2016. A est computed tomography scan from 03/02/2016 was reviewed. TECHNIQUE: A portable frontal radiograph of the chest was obtained. FINDINGS: There is slight chronic elevation the right jarad diaphragm. The lungs are clear. There are no pleural effusions. The heart is at the upper li mits of normal in size. The cardiac size is slightly accentuated due to the portable technique. It is noted the prior chest computed tomography scan demonstrated coronary artery calcifications. The regional skeleton is unremarkable. IMPRESSION: 1. No active disease. SL: [id number] Chest/Abdomen/Pelvis CT THORAX/ABDOMEN/PELVIS WIT H IV CONTRAST WITH SAGITTAL AND CORONAL REFORMATTED IMAGES 03/02/2016 [facility] IV contrast CT HISTORY: Back pain, right-sided abdominal pain. COMPARISON: Noncontrast CT abdomen/pelvis dated 03/02/2016 CHEST: Mild emphysematous change at the lung apices. No pneumonia, pleural effusion, or pneumothorax. No mediastinal mass, adenopathy, or fluid collection. Moderate coronary calcifications. No acute osseous abnormality in the thorax. ABDOMEN/PELVIS: Liver demonstrates hepatic s teatosis. No focal liver lesion. No calcified gallstones. The spleen, pancreas, and adrenal glands appear normal. Tiny right renal calyceal calculus is noted. Tiny left renal cyst is noted. No hydronephrosis. Urinary bladder is unremarka ble. Mild colonic diverticulosis without CT evidence of acute diverticulitis. Normal appendix. Normal small bowel. Moderate aortic calcification and small infrarenal abdomina l aortic aneurysm which izabel ures up to 2.8 cm in diameter and measures 6.4 cm craniocaudad. No acute osseous abnormality in the abdomen or pelvis. IMPRESSION: 1. No acute abnormality. 2. Mild emphysema, hepatic s teatosis, tiny right renal calculus, mild colonic diverticulosis, small abdominal aortic aneurysm. SL: [id number] Abdomen RUQ US ULTRASOUND ABDOMEN RIGHT UPPER QUADRANT 03/02/[address] [place] [address] HISTORY: Abdominal pain, acute; right flank pain COMPARISON: CT abdomen/pelvis dated 03/02/2016 TECHNIQUE: Grayscale and limited color sonographic evaluation of the right upper quadrant was performed with standard technique. FINDINGS: LIVER: The visualized liver shows n ormal contour, size, and morphology without focal lesions. There is diffusely increased hepatic echogenicity, compatible with hepatic steatosis. BILE DUCTS: The intrahepatic and extrahe patic bile ducts are not dilated with the common bile duct measuring 4 mm. GALLBLADDER: There are no gallstones, gal lbladder sludge, pericholecystic fluid or wall thickening. PANCREAS: The pancreas body is normal, the head and tail a re obscured by bowel gas. KIDNEY: The right kidney measures 12 .0 x 6.0 x 6.7 cm. There is normal renal contour and morphology, with normal parenchymal echotexture. There is no hydronephrosis. INFERIOR VENA CAVA: Visualized portions appear normal. ASCITES: There is no right abdominal ascites. IMPRESSION: 1. Hepatic steatosis. 2. Otherwise normal abdominal ultrasound. SL: [id number] Renal Stone CT Patient Name: ANNABEL [facility]CC[facility]NELL [facility] 1970; Age: 45 years y/o Male MR: [id number] Study: Renal Stone CT 03/02/2016 5:25 AM CDT Ordering Physician: Clinical Indication: Abdominal pain, acute; Comparison: None TECHNIQUE: Noncontrasted hel ical imaging was performed from the kidneys through the symphysis as a renal stone protocol. Multiplanar reformations are available. CT Radiation Dose: DLP = 1111 mGy-cm FINDINGS: This examination is limited for the evaluation of solid organs and vascular structures due to withheld intravenous contrast -- the standard for urinary calculus assessment CT. KIDNEYS: Small 3 mm nonobstr uctive right renal calculus. Noncontrast appearance of the kidneys is otherwise normal. There is no hydronephrosis or hydroureter. No perinephric fluid. 10 mm indeterminate c ortical lesion in the left r enal anterior midpole is stable, possibly a renal cyst as previously described. LOWER CHEST: The lung bases are clear. SOLID ORGANS: The visualized liver, spleen, pancreas, and adrenal glands are normal. BOWEL: No acute bowel pathol ogy. Normal appendix is noted. No evidence for colitis or diverticulitis. PERITONEUM: No free intraperitoneal fluid or air . RETROPERITONEUM: No adenopat hy. Infrarenal abdominal aorta is minimally aneurysmal at 31 mm as before. PELVIS: No pelvic mass. The urinary bladder i s normal. MUSCULOSKELETAL: The skeleton is intact. IMPRESSION: Nonobstructive right renal calculus. No specific new or acute findings. SL: [id number] Renal Stone CT Patient Name: ANNABEL MCCONNELL 02/17/2016 Zane Minaya : 1970; Age: 45 years Male MR: [id number] Study: Renal Stone CT 02/17/2016 5:26 AM CDT Clinical Indication: Flank P ain. GA. STATED RT. FLANK PAIN AND UPPER CHEST PAIN STARTED THIS AM; HX OF KIDNEY STONES COMPARISON: None TECHNIQUE: Helical imaging w as performed diaphragm through the symphysis with multiplanar reformations obtained without IV contrast. FINDINGS: LOWER CHEST: The lung bases are clear. Mild card iomegaly. ABDOMEN: No free air. LIVER: The liver measures 22.4 cm CC. BILIARY TREE: Normal. GALLBLADDER: Normal. PANCREAS: Normal. SPLEEN: Normal. ADRENALS: Normal. KIDNEYS: Right renal stone m easures 3 to 3.5 mm, 285 Hounsfield units. Mild right perinephric stranding. Small left presumed renal cyst is incompletely evaluated. PELVIS: No ureterolithiasis. The bladder is normally distended. Small fat- containing right inguinal hernia. BOWEL: No small bowel obstru ction. Moderate constipation, normal appendix. Mild sigmoid diverticulosis. PERITONEUM: No free intraperitoneal fluid. RETROPERITONEUM: Atheromatou s aortic calcification, with the infrarenal aorta measuring 3.3 cm. MUSCULOSKELETAL: Mild thoracic spondylosis. IMPRESSION: 1. Right nephrolithiasis. 2. Right minimal perinephri c stranding, correlation for pyelonephritis is recommended. 3. Hepatomegaly. 4. Infrarenal aortic aneurysm. 5. Right fat-containing inguinal hernia. 6. Presumed small left renal cyst. 7. Cardiomegaly. SL: [id number] Chest 1view DX Patient Name: ANNABEL MCCONNELL 02/17/2016 Zane Minaya : 1970; Age: 45 years y/o Male MR: [id number] Study: Chest 1view DX 02/17/2016 5:19 AM CDT Ordering Physician: Barber Lazar DO Comparison: None Clinical Indication: Chest pain; A few scattered interstitial opacities and granulomatous calcifications are noted bilaterally, nonspecific, likely chronic. Cardiac silhouette is mild to moderately enlarged. There is no acute consolida tion or pleural fluid collec tion noted. Marginal spurring is noted at the thoracic spine. Degenerative changes at the shoulders bilaterally. IMPRESSION: No acute cardiopulmonary process. SL: JUSTYNA Consultation Notes No Data Provided for This Section Discharge Summaries No Data Provided for This Section History and Physicals No Data Provided for This Section Vital Signs Vital Sign Value Date Comments Source Respitory Rate 18 05/17/[address] [facility] Temperature Oral (F) 98.1 F 05/17/2016 [facility] Heart Rate 72 05/17/[address] [facility] Systolic (mm Hg) 116 05/17/[address] [facility] Diastolic (mm Hg) 76 05/17/2016 [facility] d Weight 128.636 05/17/[address] [facility] Temperature Oral (F) 97.6 F 05/17/2016 [facility] Respitory Rate 16 05/17/[address] [facility] Heart Rate 79 05/17/[address] [facility] Systolic (mm Hg) 100 05/17/2016 [facility] [place] Diastolic (mm Hg) 69 05/17/2016 [facility] [place] [facility] Respitory Rate 16 05/06/2016 [facility] [place] Systolic (mm Hg) 134 05/06/2016 [facility] [place] Diastolic (mm Hg) 84 05/06/2016 [facility] [place] Heart Rate 61 05/06/2016 [place] Temperature Oral (F) 97.9 F 05/06/2016 [facility] [place] Respitory Rate 14 05/06/2016 [place] Temperature Oral (F) 97.4 F 05/06/2016 [place] Systolic (mm Hg) 117 05/06/2016 [facility] [place] Diastolic (mm Hg) 77 05/06/2016 [facility] [place] Respitory Rate 18 05/06/2016 [place] Heart Rate 56 05/06/2016 [place] Systolic (mm Hg) 120 05/06/2016 [facility] [place] Diastolic (mm Hg) 77 05/06/2016 [place] Heart Rate 62 05/06/2016 [place] Temperature Oral (F) 97.9 F 05/06/2016 [place] Weight 131.7 05/06/2016 [place] BMI Calculated 41.66 05/06/2016 [place] Height 177.8 cm 05/06/2016 [place] Weight 127.273 05/05/2016 [place] Systolic (mm Hg) 118 04/26/2016 [place] Diastolic (mm Hg) 64 04/26/2016 [place] Respitory Rate 18 04/26/2016 [place] Heart Rate 78 04/26/2016 [place] Temperature Oral (F) 97.4 F 04/26/2016 [place] Weight 128.182 04/25/2016 [place] BMI Calculated 40.55 04/25/2016 [place] Height 177.8 cm 04/25/2016 [place] Respitory Rate 18 04/25/2016 [place] Temperature Oral (F) 97.2 F 04/25/2016 [place] Heart Rate 80 04/25/2016 [facility] [place] Systolic (mm Hg) 137 04/25/2016 [place] Diastolic (mm Hg) 85 04/25/2016 [place] Temperature Oral (F) 98.7 F 03/05/2016 [facility] [place] Respitory Rate 16 03/05/2016 [facility] [place] Systolic (mm Hg) 127 03/05/2016 [facility] [place] Diastolic (mm Hg) 68 03/05/2016 [place] Respitory Rate 16 03/05/2016 [place] Systolic (mm Hg) 124 03/05/2016 [place] Diastolic (mm Hg) 76 03/05/2016 [place] Systolic (mm Hg) 127 03/05/2016 [place] Diastolic (mm Hg) 77 03/05/2016 [place] Height 177.8 cm 03/05/2016 [place] BMI Calculated 40.83 03/05/2016 [place] Weight 129.091 03/05/2016 [place] Heart Rate 62 03/05/2016 [place] Temperature Oral (F) 98.9 F 03/05/2016 [place] Respitory Rate 18 03/05/2016 [place] Temperature Oral (F) 98.2 F 03/02/2016 [place] Heart Rate 58 03/02/2016 [place] Respitory Rate 16 03/02/2016 [place] Systolic (mm Hg) 120 03/02/2016 [place] Diastolic (mm Hg) 66 03/02/2016 [place] Heart Rate 50 03/02/2016 [place] Weight 128.636 03/02/2016 [place] Temperature Oral (F) 98.0 F 03/02/2016 [place] Respitory Rate 18 03/02/2016 [place] Systolic (mm Hg) 149 03/02/2016 [place] Diastolic (mm Hg) 87 03/02/2016 [place] Heart Rate 69 03/02/2016 [place] Systolic (mm Hg) 107 02/20/2016 [place] Diastolic (mm Hg) 66 02/20/2016 [place] Temperature Oral (F) 98.0 F 02/20/2016 [place] Respitory Rate 17 02/20/2016 [place] Heart Rate 81 02/20/2016 [place] Heart Rate 73 02/19/2016 [place] Respitory Rate 17 02/19/2016 [place] Temperature Oral (F) 97.8 F 02/19/2016 [facility] [place] Systolic (mm Hg) 96 02/19/2016 [place] Diastolic (mm Hg) 63 02/19/2016 [place] Systolic (mm Hg) 128 02/19/2016 [place] Diastolic (mm Hg) 84 02/19/2016 [place] Heart Rate 82 02/19/2016 [facility] [place] Temperature Oral (F) 97.9 F 02/19/2016 [facility] Respitory Rate 17 02/19/[address] [facility] Height 177.8 cm 02/17/[address] [facility] BMI Calculated 40.98 02/17/[address] [facility] Weight 129.545 02/17/[address] [facility] Weight 129.545 02/17/[address] [facility] BMI Calculated 40.98 02/17/[address] [facility] Height 177.8 cm 02/17/[address] [facility] Encounters Location Location Encounter Encounter Reason Attending ADM DC Stat us Source Details Type Number For Provider Date Date [facility] [id number] Osmar 02/16 02/19 Freddy Roberts /2015 [facility] [id number] Fei 03/02 03/02 Freddy Partida /2015 [facility] Emergency [id number] Rachel Platt 03/05 03/05 Freddy /2015 [facility] Emergency [id number] Agustin 04/25 04/26 Freddy Weathers /[address] [facility] Inpatient [id number] 05/05 Freddy Dupont /2015 [facility] Emergency [id number] Karey 05/17 05/18 [facility] Procedures Procedure Code Date Perfomer Comments Source Catheterization of [id number] [place] right heart Lithotripsy [id number] [facility] Placement of stent in [id number] R RCA 100% [facility] cardiac blockage conduit<sup>1</sup> Assessment and Plan Assessment and Plan Date Source Extracted from:Title: Discharge Summary * 05/07/[address] [facility] Author: Geronimo Dupont MD Date: 05/06/16 Patient: ANNABEL MCCONNELL Age: 46 years Sex: Male : 1970 Associated Diagnoses: None Author: Geronimo Dupont MD Results Review General results Labs (Last four charted values) WBC 9.9 (MAY 06) H 11.0 (MAY 05) H 10.6 (MAY 05) Hgb L 11.8 (APR 23 4) L 12.2 (MAY 05) L 12.6 (MAY 05) Hct L 36.2 (APR 23 4) L 36.5 (APR 13) L 37.4 (APR 13) Plt 272 (MAY 06) 276 (MAY 05) 306 (MAY 05) Na 140 (APR 14) 139 (MAY 05) K 3.8 (MAY 06) 3.7 (MAY 05) CO2 28 (MAY 06) 28 (MAY 05) Cl 105 (MAY 06) 105 (MAY 05) Cr 0.86 (MAY 06) 1.01 (MAY 05) BUN 18 (MAY 06) 17 (MAY 05) Glucose Random H 123 (MAY 06) H 137 (APR 23 3) Ca 8.7 (MAY 06) 8.6 (MAY 05) PT 13.4 (MAY 06) 13.9 (MAY 05) INR 1.00 (MAY 06) 1.05 (MAY 05) PTT H 50.1 (APR 23 4) H 49.1 (MAY 06) 35.3 (MAY 05) Troponin <0.02 (MAY 06) <0.02 (APR 23 3) CK MB 0.8 (MAY 05) Total CK 80 (MAY 05) Discharge Information 1. chest pain - ACS ruled out 2. CAD with recent stent to RCA in december 2015- plan as above 3. Diabetes- sliding scale coverage 4. tooth infection- patient on clindamycin at home will cont inue course Physical Examination VS/Measurements Vital Signs (last 24 hrs) Last Charted _ Temp Oral 97.4 DegF (MAY 06:24) Heart Rate Peripheral L 56bpm (MAY 06:24) Resp Rate 14 BRMIN (MAY 06:) SBP 117 mmHg (MAY 06:24) DBP 77 mmHg (MAY 06 11:24) SpO2 97 % (MAY 06:) Weight 131.7 kg (MAY 05 21:12) Height 177.8 cm (MAY 05 21:12) BMI 41.66 (MAY 05:12) General: Alert and oriented, No acute distress. Eye: Pupils are equal, round and reacti ve to light, Extraocular movements are intact. HENT: Normocephalic. Neck: Supple, Non-tender. Respiratory: Lungs are clear to auscult ation, Respirations are non-labored, Breath sounds are equal. Cardiovascular: Normal rate, Regular rhythm, No murmur. Gastrointestinal: Soft, Non-tender, Non-distended. Musculoskeletal Normal range of motion. Normal strength. Integumentary: Warm. Neurologic: Alert, Oriented, Normal sensory. Psychiatric: Cooperative, Appropriate mood and affect. Hospital Course patient's pain resolved quickly, descirb ed more as possible palpitations. ACS ruled out and he had no events prior to discharge. Cardiology saw a patient and arranged for outpatient follow up. Discharge Plan Discharge Summary Plan Discharge Status: improved. Discharge instructions given: to patient. Discharge disposition: discharge to home. Prescriptions: continue same medications. Addendum by Geronimo Dupont MD on 05/06/2016 16:42 time spent >35 minutes Extracted from:Title: Clinical Document Author: Nimesh Coyle MD Date: 05/06/16 Cardiology Note Nimesh Coyle MD, PA SUBJECTIVE: CC: CP HPI: This is a 46 yo w/ below PMHx who p /w CP. Occurred around 315pm on the day of admission while patient was sitting and watching a [employer] game. Suddnely developed retrosternal pain, no radiation, minor cribed as sharp and pressure, continued to worsen. Tried SL nitro, first one didn't work, 2nd and 3rd ones helped a little. Pt was at rest and didn't exert himself during this time. He checked his BP and HR, HR in 90s. Associated wi th SOB and lightheadedness. Nausea but no vomiting. No diaphoresis. Pt had STEMI at [facility], required RCA s tent placement in 11/2015. He takes his meds regularly. PMHx: CAD/UT Kidney stone DM CHF HTN COPD HLD [...] 24 Hr Tmax: 98.3F (36.83c) at 05/06 00:0 0 Vital Signs are the last 5 in [...] Infusions (2): 05/05/16 heparin 25,000 unit [12 unit/kg /hr] + Premix Diluent Dextrose 5% 500 mL (heparin additive 25,000 unit [12 unit/kg/hr] + Premix Diluent Dextrose 5% 500 mL) 500 mL 22.73 ml/hr 05/06/16 (Suspended) nitroglycerin 100 mg/250ml D5W INJ 100 mg 100 mg Titrate Labs (Last four charted values) WBC 9.9 (MAY 06) H 11.0 (MAY 05) H 10.6 (MAY 05) Hgb L 11.8 (NOV 1 4) L 12.2 (MAY 05) L 12.6 (MAY 05) Hct L 36.2 (NOV 1 4) L 36.5 (MAY 05) L 37.4 (MAY [...] Random H 123 (MAY 06) H 137 (APR 23) Ca 8.7 (MAY 06) 8.6 (MAY 05) PT 13.4 (MAY 06) 13.9 (MAY 05) INR 1.00 (MAY 06) 1.05 (MAY 05) PTT H 50.1 (APR 23) H 49.1 (MAY 06) 35.3 (MAY 05) Troponin <0.02 (MAY 06) <0.02 (APR 23) CK MB 0.8 (MAY 05) Total CK [...] STEMI and PCI RCA in 11/2015 at [facility] CHF diagnosed before the STEMI DM- controlled Obesity- has been steadily losing weight since his [place] ECG with NSR and RBBB PLAN: OK to dc home No new meds He is following with cardiology clinic Cardiac diabetic diet Extracted from:Title: Progress Note Complex * Author: Geronimo Dupont MD Date: 05/06/16 Impression and Plan 1. chest pain - no more pain, based on h istory he may have been in afib at home. c/w heparin drip, telemetry monitori ng resume his beta blo cke it was held as patient got hypotensice on nitro drip which was stopped last night; c/wp lisinopril, aspirin, plavix statin, trend troponins, echo cardiology consulted 2. CAD with recent stent to RCA in december 2015- plan as above 3. Diabetes- sliding scale coverage 4. tooth infection- patient on clindamycin at home will cont inue course full code, Extracted from:Title: Clinical Document Author: Carson Boyd MD Date: 05/05/16 History and Physical Attending: Jarad Hughes MD Service: Emergency Medicine Code status: None Specified=FULL CODE Reason for Admission: CHEST PAIN Working DRG: None Documented Isolation: None Documented Consulting Physicians: (none on file) CC: CP HPI: This is a 46 yo w/ below PMHx who p /w CP. Occurred around 315pm on the day of admission while patient was sitting and watching a [employer] game. Suddnely developed retrosternal pain, no radiation, minor cribed as sharp and pressure, continued to worsen. Tried SL nitro, first one didn't work, 2nd and 3rd ones helped a little. Pt was at rest and didn't exert himself during this time. He checked his BP and HR, HR in 90s. Associated wi th SOB and lightheadedness. Nausea but no vomiting. No diaphoresis. Pt had similar but more severe CP in Nov, found to have STEMI at [facility], required RCA stent placement. PMHx: CAD/UT Kidney stone DM CHF HTN COPD HLD [...] chloride: 10 mL, IVP, PRN, PRN: Line Flush . Documented ALPRAZOLam: 1 mg, 1 tab, PO, Q8H, PRN: Anxiety, 0 Refill(s). aspirin: 81 mg, 1 tab, PO, Daily, 90 tab, 3 Refil l(s). atorvastatin: 80 mg, 1 tab, PO, Bedtime, 30 tab, 0 Refill(s). clopidogrel: 75 mg, 1 tab, PO, Daily, 30 tab, 0 R efill(s). furosemide: 20 mg, 1 tab, PO, Daily, 30 tab, 0 Re fill(s). isosorbide mononitrate: 30 mg, 1 tab, PO, QAM, 30 tab, 0 Refill(s). lisinopril: 2.5 mg, 1 tab, PO, Daily, 30 tab, 0 R efill(s). metFORMIN-repaglinide: 1 tab, PO, BID, 60 tab, [...] ONCE. Allergies: traMADol, Flomax, beta blockers--> bradycardic, S tadol ROS: See HPI. All other systems reviewed by myself are negative u nless noted above. Physical Exam: Vitals Tmp(F) Pulse BP RR SpO2 FIO2 05/05 18:48 ---- 85 123/70 15 98 --- 05/05 18:33 ---- 91 118/65 19 99 --- 05/05 17:45 ---- 85 124/73 19 97 4.0L/m 05/05 17:44 ---- 87 113/70 13 99 4.0L/m 05/05 17:27 ---- 90 128/71 22 99 4.0L/m 24 Hr Tmax: 97.9F (36.61c) at 05/05 17:0 5 Vital Signs are the last 5 in the past 48 hours. General: NAD, nontoxic appearing HEENT: NCAT, PERRL, MMM, oropharynx is clear Cardiovascular: RRR, S1S2 Respiratory: CTAB Abdomen: soft, +BS, NT/ND Extremities: no b/l LE edema Skin: no rashes Neurologic: comprehension and speech intact, CN III-XII rosina sly intact Musculoskeletal: symmetric strength in all extremities [...] DX 05/05/16 17:37:50 IMPRESSION: Stable mildly enlarged cardi ac silhouette. Atherosclerotic thoracic aorta. No focal consolidation, significant pleural effusion or pneumothorax. SL: [id number] Signed By: Tito Farnsworth MD EKG: NSR, [...] SSI Prophylaxis: heparin gtt Diet: diabetic, NPO Extracted from:Title: Discharge Summary * 02/20/2016 GHADA Tarango Author: Analilia Medellin MD Date: 02/19/16 Discharge Plan Discharge Summary Plan Discharge Status: improved. Discharge instructions given: to patient. Discharge disposition: discharge to home (into the care of family member, self care). Prescriptions: continue same medications , reviewed with patient, written and given to patient. Diagnosis Nephrolithiasis ([id number] N20.0, Working, Medical). Renal colic on right side ([id number] N23, Working, Medical). Course Improving. Education and Follow-up Counseled: patient. Extracted from:Title: Clinical Document Author: Casie Julien MD Date: 02/19/16 [facility] INFECTIOUS DISEASE PROGRESS NOTE Coco Henao M.D. Syed W. Hasan, M.D. REASON FOR CONSULTATION and FOLLOW-UP: Back Pain SUBJECTIVE: INTERVAL HISTORY: Pain [...] 24 Hr Tmax: 99.1F (37.28c) at 02/17 20:0 0 Vital Signs are the last 5 in [...] Tubes, and Drains: 02/17/2016 05:29 Peripheral Lines: Antec ubital Left 18 gauge Over the needle catheter MEDICATIONS: Scheduled Meds (7): 02/17/16 aspirin (aspirin 81 mg tablet, enteric coated) 81 m g PO Daily 02/17/16 atorvastatin (Lipitor) 80 mg PO Bedtime 02/17/16 clopidogrel (Plavix) 75 mg PO Daily 02/17/16 enoxaparin (Lovenox) 40 mg SUB-Q [id number] 02/17/16 isosorbide mononitrate (Imdur) 30 mg PO QAM 02/17/16 lisinopril 2.5 mg PO Daily 02/18/16 pantoprazole (Protonix) 40 mg PO Before Breakfast Allergies (4) Active Reaction traMADol None documented Flomax None documented beta blockers None documented Stadol None documented LABORATORY (All labs have been reviewed.): Labs (Last four charted values) WBC H 11.1 (JAN 22) H 10.8 (FEB 17) H 12.0 (FEB 16) Hgb L 12.8 (JAN 22) L 11.8 (FEB 17) L 13.1 (FEB 16) Hct L 38.6 (JAN 22) L 35.9 (FEB 17) L 39.5 (FEB [...] Random H 147 (FEB 18) H 103 (JAN 22) Ca 8.8 (FEB 18) 8.8 (FEB 16) Troponin <0.02 (FEB 17 ) <0.02 (FEB 16) <0.02 (FEB 16) <0.02 (FEB 16) CK MB 0.9 (FEB [...] IMAGING/TESTS: Recent studies have been reviewed. ASSESSMENT and PLAN: 45 yo WM presents with: * Probable Symptomatic Right Nephrolithiasis * R/O Right Pyelopephritis * Hx of Nephrolithiasis * Leukocytosis * CAD - Afebrile. - Normal procalcitonin. - Minimal leukocytosis likely from inflammation. - Continue pain control. - No evidence of urinary infection, clean UA, asymptomatic. - OK to DC from ID standpoint. ANTIMICROBIALS: None Extracted from:Title: Clinical Document Author: Casie Julien MD Date: 02/17/16 [facility] INFECTIOUS DISEASE CONSULTATION NOTE Coco Henao M.D. Syed W. Hasan, M.D. REFERRING PHYSICIAN: Dr. Hamilton Guevara REASON FOR CONSULTATION: Pyelopephritis CHIEF COMPLAINT: Right back pain HISTORY OF PRESENT ILLNESS: Mr. Annabel Mcconnell is a 45 year old [place] an gentleman, with history of nephrolithiasis dating back [...] none recently. He has had right back cassie n with prior episodes of kidney stones, but this time the pain is higher then usual and starts in the front chest through the back. He denies any gallbladder issu es, and has not been eating any fatty fo ods. He denies having had chicken pox in [...] palpitations. GASTROINTESTINAL: Denied nausea, vomiting, diarrhea, or abd ominal pain. GENITOURINARY: Denies dysuria, frequency, or urgency. + ri ght flank pain MUSCULOSKELETAL: + right back pain [...] 24 Hr Tmax: 97.8F (36.56c) at 02/16 05:1 6 Vital Signs are the last 5 in [...] Tubes, and Drains: 02/17/2016 05:29 Peripheral Lines: Antec ubital Left 18 gauge Over the needle catheter MEDICATIONS: Scheduled Meds (7): 02/17/16 aspirin (aspirin 81 mg tablet, enteric coated) 81 m g PO Daily 02/17/16 atorvastatin (Lipitor) 80 mg PO Bedtime 02/17/16 clopidogrel (Plavix) 75 mg PO Daily 02/17/16 enoxaparin (Lovenox) 40 mg SUB-Q [id number] 02/17/16 isosorbide mononitrate (Imdur) 30 mg PO [...] (Reviewed): CXR: A few scattered interstitial opacities a nd granulomatous calcifications are noted bilaterally, nonspecific, likely [...] small left renal cyst. 7. Cardiomegaly. ASSESSMENT and PLAN: 45 yo WM presents with: * Probable Symptomatic Right Nephrolithiasis * R/O Right Pyelopephritis * Hx of Nephrolithiasis * Leukocytosis * CAD - Patient presents with right flank pain with evidence of nephrolithiasis though no evidence of ureterolithiasis or hematuria on UA. CT reveals minimal stranding, but patient's UA is negative for a ny pyuria and is asymptomatic from UTI/p yelonephritis standpoint. His WBC is minimally elevated, however, which may be from inflammation, but can check a procalcitonin level. His LFTs, abdominal exam, a nd CT is normal regarding possible bilia ry symptoms. He has no history of chicken pox to consider early shingles. He received a dose of ceftriaxone in the ED, but do not feel he needs any further antibi otics at this time. Continue symptom and pain control. Will continue to follow. Plan of Care No Data Provided for This Section Social History Social History Date Source Social History TypeResponse 05/17/[address] [facility] Smoking Status Former smoker; Exposure to Tobacco Smoke None; Cigarette Smoking Last 365 Days No; Reg Smoking Cessation Counseling No Family History No Data Provided for This Section Advance Directives No Data Provided for This Section Functional Status No Data Provided for This Section
--- OUTSIDE RECORDS SUMMARY | 2019-11-07 20:40 | XMS REPORT ---
:1970 Author Organization [facility] t Address [address] [place] [address] Care Team Providers Name Role Phone Asked, Pcp Primary Care Physician Unavailable Nancie Zuleta Attending Clinician Mayo Dupont Attending Clinician Papa Lopez Attending Clinician Melodie Platt Attending Clinician Raulito Patrida Attending Clinician Esau Roberts Attending Clinician Mayo Dupont Admitting Clinician Esau Roberts Admitting Clinician Payers Payer Name Policy Type Policy Number Effective Date Expiration Date S ource Problems Condition Condition Condition Status Onset Resolution Last Treating Co mments Source Name Details Category Date Date Treatment Clinician Date 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, disorder, 00:00: st recurrent recurrent 00 episode, episode, severe severe MDD (major MDD (major Disease Active H [place] depressive depressive 8-04 Me thodi disorder), disorder), 00:00: st recurrent recurrent 00 severe, severe, without without psychosis psychosis Severe Severe Disease Active Antelope episode of episode of 2-04 Me thodi recurrent recurrent 00:00: st major major 00 depressive depressive disorder, disorder, without without psychotic psychotic features features 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 00:00: st 00 Allergies, Adverse Reactions, Alerts Allergy Allergy Status Severity Reaction(s) Onset Inactive Treating Comm ents Source Name Type Date Date Clinician gabapent DA Active [facility] in 07-03 Clear 00:00: Meraz 00 [facility] Acebutol Propensi Active Other (See All beta López ol ty to Comments) 2- blockers Metho di adverse 00:00: cause st reaction 00 bradycard s to ia drug Atenolol Propensi Active Other (See [place] ty to Comments) 2- Methodi adverse 00:00: st reaction 00 s to drug Bisoprol Propensi Active Other (See [place] ol ty to Comments) 2- Methodi adverse 00:00: st reaction 00 s to drug Carvedil Propensi Active Other (See [place] ol ty to Comments) 2-04 Methodi adverse 00:00: st reaction 00 s to drug Meperidi Propensi Active Other (See Patient H kadeem ne ty to Comments) 2- unsure Methodi adverse 00:00: why st reaction 00 documente s to d in mr drug Trazodon Propensi Active Other (See sweating Rene e ty to Comments) 2-04 Methodi adverse 00:00: st reaction 00 s to drug Tamsulos Propensi Active Other (See Dilation López in ty to Comments) 2- of eyes Method i adverse 00:00: and st reaction 00 couldn't s to see drug Metoprol Propensi Active Other (See But does López ol ty to Comments) 2-04 take PRN Metho di adverse 00:00: for afib st reaction 00 ??? s to drug Gabapent Propensi Active Other (See Flushed [place] in ty to Comments) 2- and over Metho di adverse 00:00: sedation st reaction 00 s to drug Proprano Propensi Active Other (See Ho candi lol ty to Comments) 07-27 Methodi adverse 00:00: st reaction 00 s to drug Quetiapi Propensi Active Other (See akathisia Antelope ne ty to Comments) 2- Methodi adverse 00:00: st reaction 00 s to drug Metaxalo Propensi Active Other [facility] 2- and over Metho di adverse 00:00: sedation st reaction 00 s to drug Butorpha Propensi Active Other (See tachycard Antelope nol ty to Comments) 07-27 ia Methodi Tartrate adverse 00:00: st reaction 00 s to drug Tramadol Propensi Active Palpitations Antelope ty to 2 Methodi adverse 00:00: st reaction 00 s to drug tramadol DA Active [facility] 3-10 Clear 00:00: Meraz 00 [facility] butorpha DA Active [facility] nol 3-10 Clear 00:00: Meraz 00 [facility] tamsulos DA Active [facility] in 3-10 Clear 00:00: Meraz 00 [facility] Social History Social Habit Start Date Stop Date Quantity Comments Source Sex Assigned At [facility] Smoking Status Start Date Stop Date Source Never smoker López Methodis t Medications Ordered Filled Start Stop Current Ordering Indication Dosage Frequency Signature Comments Components Source Medication Medication Date Date Medication? Clinician (SIG) Name Name allopurinol Yes [id number] 300mg QD Take 300 López (ZYLOPRIM) 8-22 mg by Methodi 300 MG 14:01: mouth st tablet 19 daily. atorvastati Yes [id number] 40mg QD Take 40 mg López n (LIPITOR) 8-22 by mouth Meth yulia 40 MG 14:01: nightly. st tablet 19 clonAZEPAM Yes Take by Bernarda chandler (KlonoPIN) 8-22 mouth. Methodi 1 MG tablet 14:01: Take 1/2 st 19 tablet in morning, 1/2 tablet at noon, and 1 tablet in the evening docusate Yes [id number] 100mg QD Take 100 [place] sodium 8-22 mg by Methodi (COLACE) 14:01: mouth st 100 MG 19 daily. capsule furosemide Yes [id number] 80mg Q.5D Take 80 mg López (LASIX) 80 8-22 by mouth 2 Met hodi mg tablet 14:01: (two) st 19 times a day. clopidogrel Yes [id number] 75mg QD Take 75 mg López (PLAVIX) 75 8-22 by mouth Meth yulia mg tablet 14:01: daily. st 19 metOLazone Yes [id number] 2.5mg Q24H Take 2.5 [place] (ZAROXOLYN) 8-22 mg by Methodi 2.5 MG 14:01: mouth st tablet 19 daily as needed (for weight gain greater than 5 poounds). metoprolol Yes 30570 12.5mg Q24H Take 12.5 López tartrate 8-22 mg by Methodi (LOPRESSOR) 14:01: mouth st 25 mg 19 daily as tablet needed (if pulse greater than 110). nitroglycer Yes [id number] 1{spray Place 1 López in 02-11 } spray Methodi (NITROLINGU 14:01: under the s t AL) 400 19 tongue mcg/spray every 5 spray (five) minutes as needed for chest pain. insulin Yes 40628 10U Q.[id number] Inject 10 López ASPART 8- [id number] Units Method i (NovoLOG) 14:01: 3D under the st 100 unit/mL 19 skin 3 insulin pen (three) times a day before meals. pantoprazol Yes [id number] 40mg QD Take 40 mg López e 8-22 by mouth Methodi (PROTONIX) 14:01: daily. st 40 MG EC 19 tablet insulin Yes [id number] 20U QD Inject 20 [place] GLARGINE 8-22 Units Methodi (LANTUS 14:01: under the st SOLOSTAR) 19 skin 100 unit/mL nightly. injection (pen) potassium Yes 20142 20meq Q.53186329 Take 20 López chloride 8-22 [id number] mEq by Met hodi (K-DUR,KLOR 14:01: 3D mouth 3 st -CON) 10 19 (three) MEQ CR times a tablet day. Three tabs QID methocarbam 2018- Yes [id number] 750mg Q.5D Take 750 López ol 8-22 mg by Methodi (ROBAXIN) 14:01: mouth 2 st 750 MG 19 (two) tablet times a day. ranolazine 2017- Yes [id number] 1000mg Q.5D Take 1,000 López (RANEXA) 8-22 mg by Methodi 1,000 mg 12 14:01: mouth 2 st hr tablet 19 (two) times a day. warfarin Yes 04355 10mg Take 10 mg [place] (COUMADIN) 8-22 by mouth. Meth yulia 10 MG 14:01: On st tablet 19 Friday, , Friday, Friday warfarin 2017- Yes [id number] 7.5mg Take 7.5 [place] (COUMADIN) 8-22 mg by Methodi 7.5 MG 14:01: mouth. On st tablet 19 Friday, Friday, Friday cyanocobala 2017- Yes [id number] 1000ug Q7D Inject [place] min 1,000 8-22 1,000 mcg Metho di mcg/mL 14:01: into the st injection 19 shoulder, thigh, or buttocks once a week. For 3 months, and then will reassess B12 levels desvenlafax 2017- Yes [id number] 100mg QD Take 100 López ine 8-22 mg by Methodi (PRISTIQ) 14:01: mouth st 100 MG 24 19 daily. hr tablet ferrous 2017- Yes [id number] 325mg Q.60876188 Take 325 López sulfate 325 8-22 [id number] mg by M ethodi (65 FE) MG 14:01: 3D mouth 3 st tablet 19 (three) times a day with meals. AMILoride 2017- Yes [id number] 5mg Q.5D Take 5 mg [place] (MIDAMOR) 5 8-22 by mouth 2 Me thodi MG tablet 14:01: (two) st 19 times a day. folic acid 2017- Yes 11301 1mg QD Take 1 mg [place] (FOLVITE) 1 8-22 by mouth Meth yulia MG tablet 14:01: daily. st 19 Procedures This patient has no known procedures. Plan of Care Planned Activity Planned Date Details Comments Source Future Scheduled 2020-01-22 INFLUENZA VACCINE [place] [facility] 00:00:00 [code = INFLUENZA VACCINE] Future Scheduled 2019 COLONOSCOPY SCREENING [place] [facility] 00:00:00 [code = COLONOSCOPY SCREENING] Future Scheduled 2019 SHINGLES VACCINES (#1) [place] [facility] 00:00:00 [code = SHINGLES VACCINES (#1)] Future Scheduled 1979 DIABETIC FOOT EXAM [place] [facility] 00:00:00 [code = DIABETIC FOOT EXAM] Future Scheduled 1979 URINE MICROALBUMIN [place] [facility] 00:00:00 [code = URINE MICROALBUMIN] Future Scheduled 1969 DIABETIC RETINAL EYE [place] [facility] 00:00:00 EXAM [code = DIABETIC RETINAL EYE EXAM] Encounters Start End Encounter Admission Attending Care Care Encounter Source Date/Time Date/Time Type Type Clinicians Facility Department ID 2016-05-17 2016-05-17 [facility] [id number] Memoria 15:36:00 18:01:00 Karey 05 l [facility] 2016-05-05 [id number] 16:51:00 18:35:00 , Geronimo 04 l Mayo [facility] 2016-04-25 2016-04-25 [facility] [id number] Memoria 18:01:00 21:08:00 Agustin Elam 03 nadira [facility] 2016-03-05 2016-03-05 [facility] L[facility] [id number] Memoria 06:59:00 09:36:00 Rachel Sewell 02 l Freddy [facility] 2016-03-02 2016-03-02 [facility] [id number] Memoria 05:00:00 09:17:00 Fei Cabezas 01 [facility] 2016-02-17 2016-02-19 [facility] [id number] Memoria 05:13:00 20:44:00 Osmar 00 l [facility]au [facility] Results Test Description Test Time Test Comments Results Result Comments Source LUPUS ANTICOAGULANT PANEL 2018-07-24 12:28:00 Test Item Value Reference Range Interpretation Comme nts PROTHROMBIN TIME PATIENT 17.8 SECONDS 9.3-12.9 H (test code = PTP) INTERNATIONAL NORMAL RATIO 1.6 0.8-1.2 H TARGET INR BY (test code = INR) INDICATION Indication INR1. Prophylax is of venous thrombosis 2.0 - 3.0 (orthoped ic surgery), Prophylaxis of venous thrombosis (oth er than high-risk lillian renny), Treatment of Deep Vein Thrombosis/Pulm onary Embolism, Prevention of systemic embolism - Tiss ue heart valves, Acute Myocard ial Infarction (to prevent s ystemic embolism), Valv ular heart disease, Atri al Fibrillation, Bileaflet mecha nical valve in aortic position .2. Mechanical prosthetic valv es (high risk), 2.5 - 3.5 P resence of Lupus Anticoagulant o r Antiphospholipi d Antibodies, Prevention of systemic embolism - Acut e Myocardial Infarction (t o prevent recurrent infar ct). THROMBOPLASTIN TIME PARTIAL 42.6 Seconds 25.0-39.5 H Therapeutic Range: (test code = PTT) 61.8-83.8 Sec Effective RVVT PATIENT (test code = 1.5 RATIO 0.0-1.2 H RVVTPAT) SILICA CLOTTING TIME (test 1.05 <=1.17 A Lupus Anticoagulant is NOT code = SILCLOT) DETECTED. Th is interpretationis based on the te st results. Prolonged scree patsy tests and negative confir matory testsmay be caused by fa ctor deficiencies or anticoagulantth erapy. Patient is on warfarin and enoxaparin.Prev iously reported result: 1.05 Ed ited by: INFCE on 07/06/18:151 1510: SILICA CLOTTING previously reported as: 1. 05 ARTERIAL THROMBOPHILIA [id number] 12:28:00 Test Item Value Reference Interpretation Comments Range PROTHROMBIN 3 NO MUTATION () PROTHROMBIN (F ACTOR II) UNTRANSLATED DETECTED 57671X>A MUTATI ON (test code = INTERPRETATION: This [id number]) individual is n egative (normal) for th e [id number] in the Prothrombin/Fac tor II gene. Increased risko f thrombophilia c an be caused by a variety of genetic andnon-genetic factors not screened for th is assay. Laboratory test ing supervised and results guerrero Knox, Ph.D., DABMG, H CLD, CGMB. MUTATION ANALYS IS:The [id number] mutation [VK368758.1:g.2 1538G>A (c.*97G>A)] int he Prothrombin/Fac tor II gene is the second most commoninherited risk factor for thrombosis occuring inapproximately 2% of Caucasians. Pre sence of the mutation isasso ciated with an elevation of pr othrombin levels to about 30% above normal in heter ozygotes and 70% above olivia l inhomozygotes. The [id number] mutation is det ected bypolymerase ch ain reaction (PCR) and flour escent probehybridizat ion to the targeted region , followed by meltingcurve an alysis with a real time PCR s ystem. Although rare,f alse positive or false negati ve results may occur. Allresul ts should be interpreted in the context of clinicalfinding s, relevant history, and ot her laboratory data. This test was developed and its analyti marium performancechar acteristics have been deter mined by [facility]. It has not beencleared or approved by the FDA. Thi s assay has beenvalidated p ursuant to the CLIA regulation s and is used forclinical pur poses. Health care providers, please contact your marium [employer] ' genetic counselor or flex [phone]( [phone]) for assistance with interpretation of theseresults. P erformed by: [employer] just[facility] F[place] [phone] ACTIVATED PROT C 3.09 RATIO 2.31-5.00 Ratios > or = to 2.31 are RESISTANCE (test considered negative for the code = APC) FactorV Leiden. FACTOR V NO MUTATION () FACTOR V (LEIDE N) MUTATION MUTATION DETECTED INTERPRETATION: This (LEIDEN) (test individual is negative code = FAC5M) (normal) for t he Factor V Leiden(R506Q) i n the Factor V gene. Increased risk ofthrombophilia can be caused by a variety of genetic andnon-genetic factors not screened for th is assay. Laboratory test ing supervised and results guerrero Cardoza , Ph.D., [facility]. MU TATION ANALYSIS:The Fa ctor v Leiden (R560Q) mutatio n [NM 859482.2: c.160 1G>A(p.R534Q)] in the Factor V gene is one of the most com moncauses of inherited throm bophilia. This mutation causes resistance to degradation of the activated protein C (APC) .The Factor V Leiden (R506Q) mutation is detected bypoly merase chain reaction (PCR) and flourescent probehybridizat ion to the targeted region , followed by meltingcurve an alysis with a real time PCR s ystem. Although rare,f alse positive or false negati ve results may occur. Allresul ts should be interpreted in the context of clinicalfinding s, relevant history, and ot her laboratory data. This test was developed and its analyti marium performancechar acteristics have been deter mined by [facility]. It has not beencleared or approved by the FDA. Thi s assay has beenvalidated p ursuant to the CLIA regulation s and is used forclinical pur poses. Health care providers, please contact your [facility] [employer] ' genetic counselor or [facility] [phone]( [phone]) for assistance with interpretation of theseresults. P erformed by: [employer] justyn/[facility] F[place] [id number] PROTEIN S FREE 56 % 68-126 L Protein S def iciency may be (test code = acquired due to PROTSFR) recentthrombosi s, oral anticoagulant t herapy, , oral contraceptives or hormone repl acement therapy, liverd ysfunction, recent surgery, DIC, and vitamin K deficiency.Here ditary deficiency of P rotein S show decreased level s butare rare. Elevated Protei n S levels are not clinicallys ignificant. Only decreased levels are associated with anincreased thrombotic risk . MONY IGG (test 0.2 GPL <=15 code = ACAG) MONY IGA (test 0.5 APL <=12 code = ACAA) MONY IGM (test 3.5 MPL <=12.5 The Antiphosph olipid Syndrome code = ACAM) (APS) is a clin ical pathologiccondi tion that includes a clin ical event (vascularthromb osis, morta lity, thrombocytopeni a, etc.) andpersistent p ositivity of antiphospholipi d antibodies (IgG orIgM MONY> 40 GPL/MPL, IgG or IgM anti -B2GPI antibodies, or thepresence of a Lupus Anticoa gulant). The InternationalCo nsensus guidelines sugg est that these isotypes must b epresent on two or more occ asions and at least 12 weeks apartto confirm antibod y persistence. Although the Ig A isotypehas been implicated in thrombotic events, these i sotypeshave not yet been in cluded into the APS criteri a. BFUR-2-ULASO I 0.8 SMU 0.0-20.0 IGM (test code = GPIIGM) XXGV-9-YGRBL I 0.0 SGU 0.0-20.0 IGG (test code = GPIIGG) TQLF-0-HAYEW I 0.5 AHMET 0.0-20.0 The Antiphosp holipid Syndrome IGA (test code = (APS) is a clinical GPIIGA) pathologiccondi tion that includes a clin ical event (vascularthromb osis, morta lity, thrombocytopeni a, etc.) andpersistent p ositivity of antiphospholipi d antibodies (IgG orIgM MONY> 40 GPL/MPL, IgG or IgM anti -B2GPI antibodies, or thepresence of a Lupus Anticoa gulant). The InternationalCo nsensus guidelines sugg est that these isotypes must b epresent on two or more occ asions and at least 12 weeks apartto confirm antibod y persistence. Although the Ig A isotypehas been implicated in thrombotic events, these i sotypeshave not yet been in cluded into the APS criteri a. HOMOCYSTEINE TEST NOT 3.2-10.7 (test code = PERFORMED HOMOCY) umol/L HIGH SENSITIVITY 2.347 mg/dl 0.000-0.747 H CRP (test code = CRPHS) [id number] 12:28:00 Test Item Value Reference Range Interpretation Comments FIBRINOGEN (test 640 MG/DL 160-450 H Excess admi nistration of code = FIB) anticoagulants and/or FibrinDegradati on Products may af fect Fibrinogen valu e. FACTOR [id number] 12:28:00 Test Item Value Reference Range Interpretation Comments FACTOR VII (test code = FAC7) 57 % 60-140 L ANTITHROMBIN III (ATIII)2018-07-24 12:28:00 Test Item Value Reference Range Interpretation Comments ANTITHROMBIN III (ATIII) 77 % 83-128 A Acq uired antithrombin (test code = AT3) deficiency may occur with renalfailu re associated with proteinuria nep hrotic syndrome,liver failure or cirrhosis or an immature liver secondary topremature bir th, accelerated con sumption due to severein jury, DIC, or recent thrombosis, and heparin therapy.Heredit philip deficiency of P rotein S show decreased levels butare rare. El evated Antithrombin le vels are not clinicallysigni ficant. PROTEIN C [id number] 12:28:00 Test Item Value Reference Range Interpretation Comments PROTEIN C 56 % 70-140 A Protein C defic iency may be FUNCTIONAL (test acquired du e to code = PROTCFN) recentthromb osis, oral anticoagulant t herapy, hepatic disorders,post- surgery, DIC, and vitamin K d eficiency. Hereditarydefic iency show decreased level s but are rare. ElevatedP rotein C levels are not clinically significant. On ly decreased levels are asso ciated with increased throm boticrisk. However, oral a nti-Xa or anti-thrombin m edications maycause falsel y increased levels of Prote in C. PROTEIN C [id number] 12:28:00 Test Item Value Reference Range Interpretation Comments PROTEIN C ANTIGENIC 71 % 70-140 Decrease d levels of (test code = PROTCAG) Protei n C Antigen may be found incongeni hetal deficiency, jerome atment with oral anticoagulants, liver disease, D.I.C. and post surgery. Perfor med by: [facility] [place] [address] PROTEIN S [id number] 12:28:00 Test Item Value Reference Range Interpretation Comments PROTEIN S TOTAL 68 % 70-140 L Performed by : [employer] (test code = Diagnostics/Misael hols [facility] PROTSTOT) FLEX [place] [id number] PROTEIN S FUNC 70 % 74-148 L Protein S def iciency may be (test code = acquired due to PROTSFN) recentthrombosi s, oral anticoagulant t herapy, , oral contraceptives or hormone repl acement therapy, liverd ysfunction, recent surgery, DIC, and vitamin K deficiency.Here ditary deficiency of P rotein S show decreased level s butare rare. Elevated Protei n S levels are not clinicallys ignificant. Only decreased levels are associated with anincreased thrombotic risk . MTHF REDUCTASE (PCR) [id number] 12:28:00 Test Item Value Reference Range Interpretation Comments MTHF REDUCTASE (PCR) 677 TEST NOT PERFORMED (test code = MTHFR 677) LUPUS ANTICOAGULANT [id number] 11:48:00 Test Item Value Reference Range Interpretation Comments PROTHROMBIN TIME 17.8 SECONDS 9.3-12.9 H PATIENT (test code = PTP) INTERNATIONAL NORMAL 1.6 0.8-1.2 H TARGET RATIO (test code = INR BY IN DICATION INR) Indication INR1. Prophyl axis of venous thrombos is 2.0 - 3. 0 (orthopedic lillian renny), Prophylaxis of venous thrombos is (other than hig h-risk surgery), Mag tment of Deep Vein Thrombosis/Pulm onary Embolism, Preve ntion of systemic emb olism - Tissue heart va lves, Acute Myocardia l Infarction (to prevent systemic embo lism), Valvular heart disease, Atri al Fibrillation, Bileaflet mecha nical valve in aortic position.2. Mec hanical prosthetic valv es (high risk), 2.5 - 3.5 Presence of Lupus Anticoagu lant or Antiphospholi pid Antibodies, Pre vention of systemic e mbolism - Acute Myocard ial Infarction (t o prevent recurre nt infarct). THROMBOPLASTIN TIME 42.6 Seconds 25.0-39.5 H Ther apeutic Range: PARTIAL (test code = 61.8-83 .8 Sec PTT) Effective 07/21/2013 RVVT PATIENT (test 1.5 RATIO 0.0-1.2 H code = RVVTPAT) SILICA CLOTTING TIME 1.05 <=1.17 A Lupus Anticoagulant (test code = is NOT DETECTED . This SILCLOT) interpretationi s based on the test res ults. Prolonged scree patsy tests and negat rosetta confirmatory te stsmay be caused by fa ctor deficiencies or anticoagulantth erapy. Patient is on w arfarin and enoxaparin.Prev iously reported result : 1.05 Edited by: INFC E on 07/06/18:013456 / 1510: SILICA C LOTTING previously repo rted as: 1.05 ARTERIAL THROMBOPHILIA [id number] 11:48:00 Test Item Value Reference Interpretation Comments Range PROTHROMBIN 3 NO MUTATION () PROTHROMBIN (F ACTOR II) UNTRANSLATED DETECTED 61806P>A MUTATI ON (test code = INTERPRETATION: This OU4KLIN) individual is n egative (normal) for th e [id number] in the Prothrombin/Fac tor II gene. Increased risko f thrombophilia c an be caused by a variety of genetic andnon-genetic factors not screened for th is assay. Laboratory test ing supervised and results mon marek Knox, Ph.D., DABMG, H CLD, MB. MUTATION ANALYS IS:The Y80445Q mutation [YZ811407.1:g.2 1538G>A (c.*97G>A)] int he Prothrombin/Fac tor II gene is the second most commoninherited risk factor for thrombosis occuring inapproximately 2% of Caucasians. Pre sence of the mutation isasso ciated with an elevation of pr othrombin levels to about 30% above normal in heter ozygotes and 70% above olivia l inhomozygotes. The M53594A mutation is det ected bypolymerase ch ain reaction (PCR) and flour escent probehybridizat ion to the targeted region , followed by meltingcurve an alysis with a real time PCR s ystem. Although rare,f alse positive or false negati ve results may occur. Allresul ts should be interpreted in the context of clinicalfinding s, relevant history, and ot her laboratory data. This test was developed and its analyti marium performancechar acteristics have been deter mined by [facility] [employer] [facility]. It has not beencleared or approved by the FDA. Thi s assay has beenvalidated p ursuant to the CLIA regulation s and is used forclinical pur poses. Health care providers, please contact your [facility] [employer] ' genetic counselor or [facility] [phone]( [phone]) for assistance with interpretation of theseresults. P erformed by: [employer] justyn/[facility] jose [place], F[place] [id number] ACTIVATED PROT C 3.09 RATIO 2.31-5.00 Ratios > or = to 2.31 are RESISTANCE (test considered negative for the code = APC) FactorV Leiden. FACTOR V NO MUTATION () FACTOR V (LEIDE N) MUTATION MUTATION DETECTED INTERPRETATION: This (LEIDEN) (test individual is negative code = FAC5M) (normal) for t he Factor V Leiden(R506Q) i n the Factor V gene. Increased risk ofthrombophilia can be caused by a variety of genetic andnon-genetic factors not screened for th is assay. Laboratory test ing supervised and results guerrero Cardoza , Ph.D., [facility]. MU TATION ANALYSIS:The Fa ctor v Leiden (R560Q) mutatio n [NM 713650.2: c.160 1G>A(p.R534Q)] in the Factor V gene is one of the most com moncauses of inherited throm bophilia. This mutation causes resistance to degradation of the activated protein C (APC) .The Factor V Leiden (R506Q) mutation is detected bypoly merase chain reaction (PCR) and flourescent probehybridizat ion to the targeted region , followed by meltingcurve an alysis with a real time PCR s [facility]. Although rare,f alse positive or false negati ve results may occur. Allresul ts should be interpreted in the context of clinicalfinding s, relevant history, and ot her laboratory data. This test was developed and its analyti marium performancechar acteristics have been deter mined by [facility]. It has not beencleared or approved by the FDA. Thi s assay has beenvalidated p ursuant to the CLIA regulation s and is used forclinical pur poses. Health care providers, please contact your [facility] [employer] ' genetic counselor or flex [phone]( [phone]) for assistance with interpretation of theseresults. P erformed by: [employer] [facility] [place] [address] PROTEIN S FREE 56 % 68-126 L Protein S def iciency may be (test code = acquired due to PROTSFR) recentthrombosi s, oral anticoagulant t herapy, , oral contraceptives or hormone repl acement therapy, liverd ysfunction, recent surgery, DIC, and vitamin K deficiency.Here ditary deficiency of P rotein S show decreased level s butare rare. Elevated Protei n S levels are not clinicallys ignificant. Only decreased levels are associated with anincreased thrombotic risk . MONY IGG (test 0.2 GPL <=15 code = ACAG) MONY IGA (test 0.5 APL <=12 code = ACAA) MONY IGM (test 3.5 MPL <=12.5 The Antiphosph olipid Syndrome code = ACAM) (APS) is a clin ical pathologiccondi tion that includes a clin ical event (vascularthromb osis, morta lity, thrombocytopeni a, etc.) andpersistent p ositivity of antiphospholipi d antibodies (IgG orIgM MONY> 40 GPL/MPL, IgG or IgM anti -B2GPI antibodies, or thepresence of a Lupus Anticoa gulant). The InternationalCo nsensus guidelines sugg est that these isotypes must b epresent on two or more occ asions and at least 12 weeks apartto confirm antibod y persistence. Although the Ig A isotypehas been implicated in thrombotic events, these i sotypeshave not yet been in cluded into the APS criteri a. DOJC-5-QUSDU I 0.8 SMU 0.0-20.0 IGM (test code = GPIIGM) SYRX-5-QRPPI I 0.0 SGU 0.0-20.0 IGG (test code = GPIIGG) PMYT-5-MNCCN I 0.5 AHMET 0.0-20.0 The Antiphosp holipid Syndrome IGA (test code = (APS) is a clinical GPIIGA) pathologiccondi tion that includes a clin ical event (vascularthromb osis, morta lity, thrombocytopeni a, etc.) andpersistent p ositivity of antiphospholipi d antibodies (IgG orIgM MONY> 40 GPL/MPL, IgG or IgM anti -B2GPI antibodies, or thepresence of a Lupus Anticoa gulant). The InternationalCo nsensus guidelines sugg est that these isotypes must b epresent on two or more occ asions and at least 12 weeks apartto confirm antibod y persistence. Although the Ig A isotypehas been implicated in thrombotic events, these i sotypeshave not yet been in cluded into the APS criteri a. HOMOCYSTEINE TEST NOT 3.2-10.7 (test code = PERFORMED HOMOCY) umol/L HIGH SENSITIVITY 2.347 mg/dl 0.000-0.747 H CRP (test code = CRPHS) [id number] 11:48:00 Test Item Value Reference Range Interpretation Comments FIBRINOGEN (test 640 MG/DL 160-450 H Excess admi nistration of code = FIB) anticoagulants and/or FibrinDegradati on Products may af fect Fibrinogen valu e. FACTOR [id number] 11:48:00 Test Item Value Reference Range Interpretation Comments FACTOR VII (test code = FAC7) 57 % 60-140 L ANTITHROMBIN III (ATIII)2018-07-10 11:48:00 Test Item Value Reference Range Interpretation Comments ANTITHROMBIN III (ATIII) 77 % 83-128 A Acq uired antithrombin (test code = AT3) deficiency may occur with renalfailu re associated with proteinuria nep hrotic syndrome,liver failure or cirrhosis or an immature liver secondary topremature bir th, accelerated con sumption due to severein jury, DIC, or recent thrombosis, and heparin therapy.Heredit philip deficiency of P rotein S show decreased levels butare rare. El evated Antithrombin le vels are not clinicallysigni ficant. PROTEIN C [id number] 11:48:00 Test Item Value Reference Range Interpretation Comments PROTEIN C 56 % 70-140 A Protein C defic iency may be FUNCTIONAL (test acquired du e to code = PROTCFN) recentthromb osis, oral anticoagulant t herapy, hepatic disorders,post- surgery, DIC, and vitamin K d eficiency. Hereditarydefic iency show decreased level s but are rare. ElevatedP rotein C levels are not clinically significant. On ly decreased levels are asso ciated with increased throm boticrisk. However, oral a nti-Xa or anti-thrombin m edications maycause falsel y increased levels of Prote in C. PROTEIN C [id number] 11:48:00 Test Item Value Reference Range Interpretation Comments PROTEIN C ANTIGENIC 71 % 70-140 Decrease d levels of (test code = PROTCAG) Protei n C Antigen may be found incongeni hetal deficiency, jerome atment with oral anticoagulants, liver disease, D.I.C. and post surgery. Perfor med by: [facility]/[place] [address] PROTEIN S [id number] 11:48:00 Test Item Value Reference Range Interpretation Comments PROTEIN S TOTAL 68 % 70-140 L Performed by : [employer] (test code = Diagnostics/[facility] [place] [address] PROTEIN S FUNC 70 % 74-148 L Protein S def iciency may be (test code = acquired due to PROTSFN) recentthrombosi s, oral anticoagulant t herapy, , oral contraceptives or hormone repl acement therapy, liverd ysfunction, recent surgery, DIC, and vitamin K deficiency.Here ditary deficiency of P rotein S show decreased level s butare rare. Elevated Protei n S levels are not clinicallys ignificant. Only decreased levels are associated with anincreased thrombotic risk . MTHF REDUCTASE (PCR) [id number] 11:48:00 Test Item Value Reference Range Interpretation Comments MTHF REDUCTASE (PCR) 677 (test code = MTHFR 677) LUPUS ANTICOAGULANT [id number] 11:04:00 Test Item Value Reference Range Interpretation Comments PROTHROMBIN TIME 17.8 SECONDS 9.3-12.9 H PATIENT (test code = PTP) INTERNATIONAL NORMAL 1.6 0.8-1.2 H TARGET RATIO (test code = INR BY IN DICATION INR) Indication INR1. Prophyl axis of venous thrombos is 2.0 - 3. 0 (orthopedic lillian renny), Prophylaxis of venous thrombos is (other than hig h-risk surgery), Mag tment of Deep Vein Thrombosis/Pulm onary Embolism, Preve ntion of systemic emb olism - Tissue heart va lves, Acute Myocardia l Infarction (to prevent systemic embo lism), Valvular heart disease, Atri al Fibrillation, Bileaflet mecha nical valve in aortic position.2. Mec hanical prosthetic valv es (high risk), 2.5 - 3.5 Presence of Lupus Anticoagu lant or Antiphospholi pid Antibodies, Pre vention of systemic e mbolism - Acute Myocard ial Infarction (t o prevent recurre nt infarct). THROMBOPLASTIN TIME 42.6 Seconds 25.0-39.5 H Ther apeutic Range: PARTIAL (test code = 61.8-83 .8 Sec PTT) Effective 07/21/2013 RVVT PATIENT (test 1.5 RATIO 0.0-1.2 H code = RVVTPAT) SILICA CLOTTING TIME 1.05 <=1.17 A Lupus Anticoagulant (test code = is NOT DETECTED . This SILCLOT) interpretationi s based on the test res ults. Prolonged scree patsy tests and negat rosetta confirmatory te stsmay be caused by fa ctor deficiencies or anticoagulantth erapy. Patient is on w arfarin and enoxaparin.Prev iously reported result : 1.05 Edited by: [facility] on 07/06/18:[id number] 1510: SILICA C LOTTING previously repo rted as: 1.05 ARTERIAL THROMBOPHILIA [id number] 11:04:00 Test Item Value Reference Interpretation Comments Range PROTHROMBIN 3 NO MUTATION () PROTHROMBIN (F ACTOR II) UNTRANSLATED DETECTED 62709M>A MUTATI ON (test code = INTERPRETATION: This DD6AMXQ) individual is n egative (normal) for th e [id number] in the Prothrombin/Fac tor II gene. Increased risko f thrombophilia c an be caused by a variety of genetic andnon-genetic factors not screened for th is assay. Laboratory test ing supervised and results guerrero Knox, Ph.D., DABMG, H CLD, CGMB. MUTATION ANALYS IS:The S68054D mutation [UT115874.1:g.2 1538G>A (c.*97G>A)] int he Prothrombin/Fac tor II gene is the second most commoninherited risk factor for thrombosis occuring inapproximately 2% of Caucasians. Pre sence of the mutation isasso ciated with an elevation of pr othrombin levels to about 30% above normal in heter ozygotes and 70% above olivia l inhomozygotes. The [id number] mutation is det ected bypolymerase ch ain reaction (PCR) and flour escent probehybridizat ion to the targeted region , followed by meltingcurve an alysis with a real time PCR s ystem. Although rare,f alse positive or false negati ve results may occur. Allresul ts should be interpreted in the context of clinicalfinding s, relevant history, and ot her laboratory data. This test was developed and its analyti marium performancechar acteristics have been deter mined by [facility]. It has not beencleared or approved by the FDA. Thi s assay has beenvalidated p ursuant to the CLIA regulation s and is used forclinical pur poses. Health care providers, please contact your [facility] [employer] ' genetic counselor or [facility] [phone]( [phone]) for assistance with interpretation of theseresults. P erformed by: [facility] [place] [id number] ACTIVATED PROT C 3.09 RATIO 2.31-5.00 Ratios > or = to 2.31 are RESISTANCE (test considered negative for the code = APC) FactorV Leiden. FACTOR V NO MUTATION () FACTOR V (LEIDE N) MUTATION MUTATION DETECTED INTERPRETATION: This (LEIDEN) (test individual is negative code = FAC5M) (normal) for t he Factor V Leiden(R506Q) i n the Factor V gene. Increased risk ofthrombophilia can be caused by a variety of genetic andnon-genetic factors not screened for th is assay. Laboratory test ing supervised and results guerrero Cardoza , Ph.D., [facility], [facility]. MU TATION ANALYSIS:The Fa ctor v Leiden (R560Q) mutatio n [NM 358674.2: c.160 1G>A(p.R534Q)] in the Factor V gene is one of the most com moncauses of inherited throm bophilia. This mutation causes resistance to degradation of the activated protein C (APC) .The Factor V Leiden (R506Q) mutation is detected bypoly merase chain reaction (PCR) and flourescent probehybridizat ion to the targeted region , followed by meltingcurve an alysis with a real time PCR s ystem. Although rare,f alse positive or false negati ve results may occur. Allresul ts should be interpreted in the context of clinicalfinding s, relevant history, and ot her laboratory data. This test was developed and its analyti marium performancechar acteristics have been deter mined by [facility]. It has not beencleared or approved by the FDA. Thi s assay has beenvalidated p ursuant to the CLIA regulation s and is used forclinical pur poses. Health care providers, please contact your [facility] [employer] ' genetic counselor or flex [phone]( [phone]) for assistance with interpretation of theseresults. P erformed by: [facility] [place] [id number] PROTEIN S FREE 56 % 68-126 L Protein S def iciency may be (test code = acquired due to PROTSFR) recentthrombosi s, oral anticoagulant t herapy, , oral contraceptives or hormone repl acement therapy, liverd ysfunction, recent surgery, DIC, and vitamin K deficiency.Here ditary deficiency of P rotein S show decreased level s butare rare. Elevated Protei n S levels are not clinicallys ignificant. Only decreased levels are associated with anincreased thrombotic risk . MONY IGG (test 0.2 GPL <=15 code = ACAG) MONY IGA (test 0.5 APL <=12 code = ACAA) MONY IGM (test 3.5 MPL <=12.5 The Antiphosph olipid Syndrome code = ACAM) (APS) is a clin ical pathologiccondi tion that includes a clin ical event (vascularthromb osis, morta lity, thrombocytopeni a, etc.) andpersistent p ositivity of antiphospholipi d antibodies (IgG orIgM MONY> 40 GPL/MPL, IgG or IgM anti -B2GPI antibodies, or thepresence of a Lupus Anticoa gulant). The InternationalCo nsensus guidelines sugg est that these isotypes must b epresent on two or more occ asions and at least 12 weeks apartto confirm antibod y persistence. Although the Ig A isotypehas been implicated in thrombotic events, these i sotypeshave not yet been in cluded into the APS criteri a. ZHYO-9-PORGR I SMU 0.0-20.0 IGM (test code = GPIIGM) XVLK-5-RJBNZ I SGU 0.0-20.0 IGG (test code = GPIIGG) [id number]-7-[id number] I 0.5 AHMET 0.0-20.0 The Antiphosp holipid Syndrome IGA (test code = (APS) is a clinical GPIIGA) pathologiccondi tion that includes a clin ical event (vascularthromb osis, morta lity, thrombocytopeni a, etc.) andpersistent p ositivity of antiphospholipi d antibodies (IgG orIgM MONY> 40 GPL/MPL, IgG or IgM anti -B2GPI antibodies, or thepresence of a Lupus Anticoa gulant). The InternationalCo nsensus guidelines sugg est that these isotypes must b epresent on two or more occ asions and at least 12 weeks apartto confirm antibod y persistence. Although the Ig A isotypehas been implicated in thrombotic events, these i sotypeshave not yet been in cluded into the APS criteri a. HOMOCYSTEINE TEST NOT 3.2-10.7 (test code = PERFORMED HOMOCY) umol/L HIGH SENSITIVITY mg/dl 0.000-0.747 H CRP (test code = CRPHS) [id number] 11:04:00 Test Item Value Reference Range Interpretation Comments FIBRINOGEN (test 640 MG/DL 160-450 H Excess admi nistration of code = FIB) anticoagulants and/or FibrinDegradati on Products may af fect Fibrinogen valu e. FACTOR [id number] 11:04:00 Test Item Value Reference Range Interpretation Comments FACTOR VII (test code = FAC7) 57 % 60-140 L ANTITHROMBIN III (ATIII)2018-07-10 11:04:00 Test Item Value Reference Range Interpretation Comments ANTITHROMBIN III (ATIII) 77 % 83-128 A Acq uired antithrombin (test code = AT3) deficiency may occur with renalfailu re associated with proteinuria nep hrotic syndrome,liver failure or cirrhosis or an immature liver secondary topremature bir th, accelerated con sumption due to severein jury, DIC, or recent thrombosis, and heparin therapy.Heredit philip deficiency of P rotein S show decreased levels butare rare. El evated Antithrombin le vels are not clinicallysigni ficant. PROTEIN C [id number] 11:04:00 Test Item Value Reference Range Interpretation Comments PROTEIN C 56 % 70-140 A Protein C defic iency may be FUNCTIONAL (test acquired du e to code = PROTCFN) recentthromb osis, oral anticoagulant t herapy, hepatic disorders,post- surgery, DIC, and vitamin K d eficiency. Hereditarydefic iency show decreased level s but are rare. ElevatedP rotein C levels are not clinically significant. On ly decreased levels are asso ciated with increased throm boticrisk. However, oral a nti-Xa or anti-thrombin m edications maycause falsel y increased levels of Prote in C. PROTEIN C [id number] 11:04:00 Test Item Value Reference Range Interpretation Comments PROTEIN C ANTIGENIC 71 % 70-140 Decrease d levels of (test code = PROTCAG) Protei n C Antigen may be found incongeni hetal deficiency, jerome atment with oral anticoagulants, liver disease, D.I.C. and post surgery. Perfor med by: [facility]/[place] [address] PROTEIN S [id number] 11:04:00 Test Item Value Reference Range Interpretation Comments PROTEIN S TOTAL 68 % 70-140 L Performed by : [facility] (test code = Diagnostics/[facility] [place] [address] PROTEIN S FUNC 70 % 74-148 L Protein S def iciency may be (test code = acquired due to PROTSFN) recentthrombosi s, oral anticoagulant t herapy, , oral contraceptives or hormone repl acement therapy, liverd ysfunction, recent surgery, DIC, and vitamin K deficiency.Here ditary deficiency of P rotein S show decreased level s butare rare. Elevated Protei n S levels are not clinicallys ignificant. Only decreased levels are associated with anincreased thrombotic risk . MTHF REDUCTASE (PCR) [id number] 11:04:00 Test Item Value Reference Range Interpretation Comments MTHF REDUCTASE (PCR) 677 (test code = MTHFR 677) LUPUS ANTICOAGULANT [id number] 11:03:00 Test Item Value Reference Range Interpretation Comments PROTHROMBIN TIME 17.8 SECONDS 9.3-12.9 H PATIENT (test code = PTP) INTERNATIONAL NORMAL 1.6 0.8-1.2 H TARGET RATIO (test code = INR BY IN DICATION INR) Indication INR1. Prophyl axis of venous thrombos is 2.0 - 3. 0 (orthopedic lillian renny), Prophylaxis of venous thrombos is (other than hig h-risk surgery), Mag tment of Deep Vein Thrombosis/Pulm onary Embolism, Preve ntion of systemic emb olism - Tissue heart va lves, Acute Myocardia l Infarction (to prevent systemic embo lism), Valvular heart disease, Atri al Fibrillation, Bileaflet mecha nical valve in aortic position.2. Mec hanical prosthetic valv es (high risk), 2.5 - 3.5 Presence of Lupus Anticoagu lant or Antiphospholi pid Antibodies, Pre vention of systemic e mbolism - Acute Myocard ial Infarction (t o prevent recurre nt infarct). THROMBOPLASTIN TIME 42.6 Seconds 25.0-39.5 H Ther apeutic Range: PARTIAL (test code = 61.8-83 .8 Sec PTT) Effective 07/21/2013 RVVT PATIENT (test 1.5 RATIO 0.0-1.2 H code = RVVTPAT) SILICA CLOTTING TIME 1.05 <=1.17 A Lupus Anticoagulant (test code = is NOT DETECTED . This SILCLOT) interpretationi s based on the test res ults. Prolonged scree patsy tests and negat rosetta confirmatory te stsmay be caused by fa ctor deficiencies or anticoagulantth erapy. Patient is on w arfarin and enoxaparin.Prev iously reported result : 1.05 Edited by: [facility] E on 07/06/18:[id number] 1510: SILICA C LOTTING previously repo rted as: 1.05 ARTERIAL THROMBOPHILIA [id number] 11:03:00 Test Item Value Reference Interpretation Comments Range PROTHROMBIN 3 NO MUTATION () PROTHROMBIN (F ACTOR II) UNTRANSLATED DETECTED 03069D>A MUTATI ON (test code = INTERPRETATION: This OP6UPGB) individual is n egative (normal) for th e [id number] in the Prothrombin/Fac tor II gene. Increased risko f thrombophilia c an be caused by a variety of genetic andnon-genetic factors not screened for th is assay. Laboratory test ing supervised and results guerrero Knox, Ph.D., DABMG, H CLD, CGMB. MUTATION ANALYS IS:The P76844M mutation [YB137594.1:g.2 1538G>A (c.*97G>A)] int he Prothrombin/Fac tor II gene is the second most commoninherited risk factor for thrombosis occuring inapproximately 2% of Caucasians. Pre sence of the mutation isasso ciated with an elevation of pr othrombin levels to about 30% above normal in heter ozygotes and 70% above olivia l inhomozygotes. The U20894R mutation is det ected bypolymerase ch ain reaction (PCR) and flour escent probehybridizat ion to the targeted region , followed by meltingcurve an alysis with a real time PCR s te. Although rare,f alse positive or false negati ve results may occur. Allresul ts should be interpreted in the context of clinicalfinding s, relevant history, and ot her laboratory data. This test was developed and its analyti marium performancechar acteristics have been deter mined by [facility]. It has not beencleared or approved by the FDA. Thi s assay has beenvalidated p ursuant to the CLIA regulation s and is used forclinical pur poses. Health care providers, please contact your [facility] [employer] ' genetic counselor or flex lind [phone]( [phone]) for assistance with interpretation of theseresults. P erformed by: [facility] [place] [address] ACTIVATED PROT C 3.09 RATIO 2.31-5.00 Ratios > or = to 2.31 are RESISTANCE (test considered negative for the code = APC) FactorV Leiden. FACTOR V NO MUTATION () FACTOR V (LEIDE N) MUTATION MUTATION DETECTED INTERPRETATION: This (LEIDEN) (test individual is negative code = FAC5M) (normal) for t he Factor V Leiden(R506Q) i n the Factor V gene. Increased risk ofthrombophilia can be caused by a variety of genetic andnon-genetic factors not screened for th is assay. Laboratory test ing supervised and results guerrero Cardoza , Ph.D., [facility], [facility]. MU TATION ANALYSIS:The Fa ctor v Leiden (R560Q) mutatio n [NM 549364.2: c.160 1G>A(p.R534Q)] in the Factor V gene is one of the most com moncauses of inherited throm bophilia. This mutation causes resistance to degradation of the activated protein C (APC) .The Factor V Leiden (R506Q) mutation is detected bypoly merase chain reaction (PCR) and flourescent probehybridizat ion to the targeted region , followed by meltingcurve an alysis with a real time PCR s yste. Although rare,f alse positive or false negati ve results may occur. Allresul ts should be interpreted in the context of clinicalfinding s, relevant history, and ot her laboratory data. This test was developed and its analyti marium performancechar acteristics have been deter mined by [facility]. It has not beencleared or approved by the FDA. Thi s assay has beenvalidated p ursuant to the CLIA regulation s and is used forclinical pur poses. Health care providers, please contact your filipe causey [employer] ' genetic counselor or flex lind [phone]( [phone]) for assistance with interpretation of theseresults. P erformed by: [facility] [place] [address] PROTEIN S FREE 56 % 68-126 L Protein S def iciency may be (test code = acquired due to PROTSFR) recentthrombosi s, oral anticoagulant t herapy, , oral contraceptives or hormone repl acement therapy, liverd ysfunction, recent surgery, DIC, and vitamin K deficiency.Here ditary deficiency of P rotein S show decreased level s butare rare. Elevated Protei n S levels are not clinicallys ignificant. Only decreased levels are associated with anincreased thrombotic risk . MOYN IGG (test 0.2 GPL <=15 code = ACAG) MONY IGA (test 0.5 APL <=12 code = ACAA) MONY IGM (test 3.5 MPL <=12.5 The Antiphosph olipid Syndrome code = ACAM) (APS) is a clin ical pathologiccondi tion that includes a clin ical event (vascularthromb osis, morta lity, thrombocytopeni a, etc.) andpersistent p ositivity of antiphospholipi d antibodies (IgG orIgM MONY> 40 GPL/MPL, IgG or IgM anti -B2GPI antibodies, or thepresence of a Lupus Anticoa gulant). The InternationalCo nsensus guidelines sugg est that these isotypes must b epresent on two or more occ asions and at least 12 weeks apartto confirm antibod y persistence. Although the Ig A isotypehas been implicated in thrombotic events, these i sotypeshave not yet been in cluded into the APS criteri a. RLNB-3-LEJKG I SMU 0.0-20.0 IGM (test code = GPIIGM) GYAX-6-[id number] I SGU 0.0-20.0 IGG (test code = GPIIGG) SVKG-1-LHWIZ I 0.5 AHMET 0.0-20.0 The Antiphosp holipid Syndrome IGA (test code = (APS) is a clinical GPIIGA) pathologiccondi tion that includes a clin ical event (vascularthromb osis, morta lity, thrombocytopeni a, etc.) andpersistent p ositivity of antiphospholipi d antibodies (IgG orIgM MONY> 40 GPL/MPL, IgG or IgM anti -B2GPI antibodies, or thepresence of a Lupus Anticoa gulant). The InternationalCo nsensus guidelines sugg est that these isotypes must b epresent on two or more occ asions and at least 12 weeks apartto confirm antibod y persistence. Although the Ig A isotypehas been implicated in thrombotic events, these i sotypeshave not yet been in cluded into the APS criteri a. HOMOCYSTEINE TEST NOT 3.2-10.7 (test code = PERFORMED HOMOCY) umol/L HIGH SENSITIVITY mg/dl 0.000-0.747 H CRP (test code = CRPHS) [id number] 11:03:00 Test Item Value Reference Range Interpretation Comments FIBRINOGEN (test 640 MG/DL 160-450 H Excess admi nistration of code = FIB) anticoagulants and/or FibrinDegradati on Products may af fect Fibrinogen valu e. FACTOR [id number] 11:03:00 Test Item Value Reference Range Interpretation Comments FACTOR VII (test code = FAC7) 57 % 60-140 L ANTITHROMBIN III (ATIII)2018-07-10 11:03:00 Test Item Value Reference Range Interpretation Comments ANTITHROMBIN III (ATIII) 77 % 83-128 A Acq uired antithrombin (test code = AT3) deficiency may occur with renalfailu re associated with proteinuria nep hrotic syndrome,liver failure or cirrhosis or an immature liver secondary topremature bir th, accelerated con sumption due to severein jury, DIC, or recent thrombosis, and heparin therapy.Heredit philip deficiency of P rotein S show decreased levels butare rare. El evated Antithrombin le vels are not clinicallysigni ficant. PROTEIN C [id number] 11:03:00 Test Item Value Reference Range Interpretation Comments PROTEIN C 56 % 70-140 A Protein C defic iency may be FUNCTIONAL (test acquired du e to code = PROTCFN) recentthromb osis, oral anticoagulant t herapy, hepatic disorders,post- surgery, DIC, and vitamin K d eficiency. Hereditarydefic iency show decreased level s but are rare. ElevatedP rotein C levels are not clinically significant. On ly decreased levels are asso ciated with increased throm boticrisk. However, oral a nti-Xa or anti-thrombin m edications maycause falsel y increased levels of Prote in C. PROTEIN C [id number] 11:03:00 Test Item Value Reference Range Interpretation Comments PROTEIN C ANTIGENIC 71 % 70-140 Decrease d levels of (test code = PROTCAG) Protei n C Antigen may be found incongeni hetal deficiency, jerome atment with oral anticoagulants, liver disease, D.I.C. and post surgery. Perfor med by: [facility] [address] PROTEIN S [id number] 11:03:00 Test Item Value Reference Range Interpretation Comments PROTEIN S TOTAL % (test code = PROTSTOT) PROTEIN S FUNC 70 % 74-148 L Protein S def iciency may be (test code = acquired due to PROTSFN) recentthrombosi s, oral anticoagulant t herapy, , oral contraceptives or hormone repl acement therapy, liverd ysfunction, recent surgery, DIC, and vitamin K deficiency.Here ditary deficiency of P rotein S show decreased level s butare rare. Elevated Protei n S levels are not clinicallys ignificant. Only decreased levels are associated with anincreased thrombotic risk . MTHF REDUCTASE (PCR) [id number] 11:03:00 Test Item Value Reference Range Interpretation Comments MTHF REDUCTASE (PCR) 677 (test code = MTHFR 677) LUPUS ANTICOAGULANT [id number] 21:21:00 Test Item Value Reference Range Interpretation Comments PROTHROMBIN TIME 17.8 SECONDS 9.3-12.9 H PATIENT (test code = PTP) INTERNATIONAL NORMAL 1.6 0.8-1.2 H TARGET RATIO (test code = INR BY IN DICATION INR) Indication INR1. Prophyl axis of venous thrombos is 2.0 - 3. 0 (orthopedic lillian renny), Prophylaxis of venous thrombos is (other than hig h-risk surgery), Mag tment of Deep Vein Thrombosis/Pulm onary Embolism, Preve ntion of systemic emb olism - Tissue heart va lves, Acute Myocardia l Infarction (to prevent systemic embo lism), Valvular heart disease, Atri al Fibrillation, Bileaflet mecha nical valve in aortic position.2. Mec hanical prosthetic valv es (high risk), 2.5 - 3.5 Presence of Lupus Anticoagu lant or Antiphospholi pid Antibodies, Pre vention of systemic e mbolism - Acute Myocard ial Infarction (t o prevent recurre nt infarct). THROMBOPLASTIN TIME 42.6 Seconds 25.0-39.5 H Ther apeutic Range: PARTIAL (test code = 61.8-83 .8 Sec PTT) Effective 07/21/2013 RVVT PATIENT (test 1.5 RATIO 0.0-1.2 H code = RVVTPAT) SILICA CLOTTING TIME 1.05 <=1.17 A Lupus Anticoagulant (test code = is NOT DETECTED . This SILCLOT) interpretationi s based on the test res ults. Prolonged scree patsy tests and negat rosetta confirmatory te stsmay be caused by fa ctor deficiencies or anticoagulantth erapy. Patient is on w arfarin and enoxaparin.Prev iously reported result : 1.05 Edited by: ADDY Zhang on 07/06/18:[id number] 1510: SILICA C LOTTING previously repo rted as: 1.05 ARTERIAL THROMBOPHILIA [id number] 21:21:00 Test Item Value Reference Interpretation Comments Range PROTHROMBIN 3 UNTRANSLATED (test code = [id number]) ACTIVATED PROT C 3.09 RATIO 2.31-5.00 Ratios > or = to 2.31 are RESISTANCE (test considered negative for code = APC) the FactorV Lei den. FACTOR V MUTATION (LEIDEN) (test code = FAC5M) PROTEIN S FREE 56 % 68-126 L Protein S def iciency october (test code = be acquired due to PROTSFR) recentthrombosi s, oral anticoagulant t herapy, , oralcontracepti ves or hormone replace ment therapy, liverd ysfunction, recent surgery, DIC, and vitamin K deficiency.Here ditary deficiency of P rotein S show decreased levels butare rare. El evated Protein S level s are not clinicallysigni ficant. Only decreased levels are associated with anincreased thr ombotic risk. MONY IGG (test 0.2 GPL <=15 code = ACAG) MONY IGA (test 0.5 APL <=12 code = ACAA) MONY IGM (test 3.5 MPL <=12.5 The Antiphosph olipid code = ACAM) Syndrome (APS) is a clinical pathologiccondi tion that includes a clin ical event (vascularthromb osis, morta lity, thrombocytopeni a, etc.) andpersistent p ositivity of antiphosphol ipid antibodies (IgG orIgM MONY>40 GPL/MPL, IgG or IgM anti-B2GPI anti bodies, or thepresence of a Lupus Anticoagulant). The InternationalCo nsensus guidelines sugg est that these isotypes must bepresent on tw o or more occasions and a t least 12 weeks apartto c onfirm antibody persis tence. Although the Ig A isotypehas been implicated in thrombotic e vents, these isotypesh ave not yet been included i nto the APS criteria. GGLI-2-AGPRY I SMU 0.0-20.0 IGM (test code = GPIIGM) UEDR-3-HMGMN I SGU 0.0-20.0 IGG (test code = GPIIGG) IIDQ-4-ESQVD I 0.5 AHMET 0.0-20.0 The Antiphosp holipid IGA (test code = Syndrome (A PS) is a GPIIGA) clinical pathologiccondi tion that includes a clin ical event (vascularthromb osis, morta lity, thrombocytopeni a, etc.) andpersistent p ositivity of antiphosphol ipid antibodies (IgG orIgM MONY>40 GPL/MPL, IgG or IgM anti-B2GPI anti bodies, or thepresence of a Lupus Anticoagulant). The InternationalCo nsensus guidelines sugg est that these isotypes must bepresent on tw o or more occasions and a t least 12 weeks apartto c onfirm antibody persis tence. Although the Ig A isotypehas been implicated in thrombotic e vents, these isotypesh ave not yet been included i nto the APS criteria. HOMOCYSTEINE TEST NOT 3.2-10.7 (test code = PERFORMED HOMOCY) umol/L HIGH SENSITIVITY mg/dl 0.000-0.747 H CRP (test code = CRPHS) [id number] 21:21:00 Test Item Value Reference Range Interpretation Comments FIBRINOGEN (test 640 MG/DL 160-450 H Excess admi nistration of code = FIB) anticoagulants and/or FibrinDegradati on Products may af fect Fibrinogen valu e. FACTOR [id number] 21:21:00 Test Item Value Reference Range Interpretation Comments FACTOR VII (test code = FAC7) 57 % 60-140 L ANTITHROMBIN III (ATIII)2018-07-09 21:21:00 Test Item Value Reference Range Interpretation Comments ANTITHROMBIN III (ATIII) 77 % 83-128 A Acq uired antithrombin (test code = AT3) deficiency may occur with renalfailu re associated with proteinuria nep hrotic syndrome,liver failure or cirrhosis or an immature liver secondary topremature bir th, accelerated con sumption due to severein jury, DIC, or recent thrombosis, and heparin therapy.Heredit pihlip deficiency of P rotein S show decreased levels butare rare. El evated Antithrombin le vels are not clinicallysigni ficant. PROTEIN C [id number] 21:21:00 Test Item Value Reference Range Interpretation Comments PROTEIN C 56 % 70-140 A Protein C defic iency may be FUNCTIONAL (test acquired du e to code = PROTCFN) recentthromb osis, oral anticoagulant t herapy, hepatic disorders,post- surgery, DIC, and vitamin K d eficiency. Hereditarydefic iency show decreased level s but are rare. ElevatedP rotein C levels are not clinically significant. On ly decreased levels are asso ciated with increased throm boticrisk. However, oral a nti-Xa or anti-thrombin m edications maycause falsel y increased levels of Prote in C. PROTEIN C [id number] 21:21:00 Test Item Value Reference Range Interpretation Comments PROTEIN C ANTIGENIC 71 % 70-140 Decrease d levels of (test code = PROTCAG) Protei n C Antigen may be found incongeni hetal deficiency, jerome atment with oral anticoagulants, liver disease, D.I.C. and post surgery. Perfor med by: [facility]/[place] [address] PROTEIN S [id number] 21:21:00 Test Item Value Reference Range Interpretation Comments PROTEIN S TOTAL % (test code = PROTSTOT) PROTEIN S FUNC 70 % 74-148 L Protein S def iciency may be (test code = acquired due to PROTSFN) recentthrombosi s, oral anticoagulant t herapy, , oral contraceptives or hormone repl acement therapy, liverd ysfunction, recent surgery, DIC, and vitamin K deficiency.Here ditary deficiency of P rotein S show decreased level s butare rare. Elevated Protei n S levels are not clinicallys ignificant. Only decreased levels are associated with anincreased thrombotic risk . MTHF REDUCTASE (PCR) [id number] 21:21:00 Test Item Value Reference Range Interpretation Comments MTHF REDUCTASE (PCR) 677 (test code = MTHFR 677) ANTIPHOSPHATIDYL SERINE [id number] 16:18:00 Test Item Value Reference Range Interpretation Comments APS ABS IGG (test 2 GPS IgG 0-11 Performed At: [facility] code = APSIGG) [address] [id number] ra Lynne PHILLIP Ph:[phone] APS ABS IGM (test 5 MPS IgM 0-25 code = APSIGM) APS ABS IGA (test 1 APS IgA 0-20 code = APSIGA) LUPUS ANTICOAGULANT [id number] 14:43:00 Test Item Value Reference Range Interpretation Comments PROTHROMBIN TIME 17.8 SECONDS 9.3-12.9 H PATIENT (test code = PTP) INTERNATIONAL NORMAL 1.6 0.8-1.2 H TARGET RATIO (test code = INR BY IN DICATION INR) Indication INR1. Prophyl axis of venous thrombos is 2.0 - 3. 0 (orthopedic lillian renny), Prophylaxis of venous thrombos is (other than hig h-risk surgery), Mag tment of Deep Vein Thrombosis/Pulm onary Embolism, Preve ntion of systemic emb olism - Tissue heart va lves, Acute Myocardia l Infarction (to prevent systemic embo lism), Valvular heart disease, Atri al Fibrillation, Bileaflet mecha nical valve in aortic position.2. Mec hanical prosthetic valv es (high risk), 2.5 - 3.5 Presence of Lupus Anticoagu lant or Antiphospholi pid Antibodies, Pre vention of systemic e mbolism - Acute Myocard ial Infarction (t o prevent recurre nt infarct). THROMBOPLASTIN TIME 42.6 Seconds 25.0-39.5 H Ther apeutic Range: PARTIAL (test code = 61.8-83 .8 Sec PTT) Effective 07/21/2013 PTT 1:1 MIX TACTICAL AIR CONTROL PARTY (test SECS code = PTTMIX2) PTT 1:3 MIX (test SECS code = PTTMIX3) PT 1:2 MIX (test SECS code = PTMIX2) RVVT PATIENT (test 1.5 RATIO 0.0-1.2 H code = RVVTPAT) SILICA CLOTTING TIME 1.05 <=1.17 A Lupus Anticoagulant (test code = is NOT DETECTED . This SILCLOT) interpretationi s based on the test res ults. Prolonged scree patsy tests and negat rosetta confirmatory te stsmay be caused by fa ctor deficiencies or anticoagulantth erapy. Patient is on w arfarin and enoxaparin.Prev iously reported result : 1.05 Edited by: [facility] E on 07/06/18:[id number] 1510: SILICA C LOTTING previously repo rted as: 1.05 ARTERIAL THROMBOPHILIA [id number] 14:43:00 Test Item Value Reference Interpretation Comments Range PROTHROMBIN 3 UNTRANSLATED (test code = [id number]) ACTIVATED PROT C 3.09 RATIO 2.31-5.00 Ratios > or = to 2.31 are RESISTANCE (test considered negative for code = APC) the FactorV Lei den. FACTOR V MUTATION (LEIDEN) (test code = FAC5M) PROTEIN S FREE 56 % 68-126 L Protein S def iciency may (test code = be acquired due to PROTSFR) recentthrombosi s, oral anticoagulant t herapy, , oralcontracepti ves or hormone replace ment therapy, liverd ysfunction, recent surgery, DIC, and vitamin K deficiency.Here ditary deficiency of P rotein S show decreased levels butare rare. El evated Protein S level s are not clinicallysigni ficant. Only decreased levels are associated with anincreased thr ombotic risk. MONY IGG (test 0.2 GPL <=15 code = ACAG) MONY IGA (test 0.5 APL <=12 code = ACAA) MONY IGM (test 3.5 MPL <=12.5 The Antiphosph olipid code = ACAM) Syndrome (APS) is a clinical pathologiccondi tion that includes a clin ical event (vascularthromb osis, morta lity, thrombocytopeni a, etc.) andpersistent p ositivity of antiphosphol ipid antibodies (IgG orIgM MONY>40 GPL/MPL, IgG or IgM anti-B2GPI anti bodies, or thepresence of a Lupus Anticoagulant). The International[employer] nsensus guidelines sugg est that these isotypes must bepresent on tw o or more occasions and a t least 12 weeks apartto c onfirm antibody persis tence. Although the Ig A isotypehas been implicated in thrombotic e vents, these isotypesh ave not yet been included i nto the APS criteria. AIQW-1-HKXIY I SMU 0.0-20.0 IGM (test code = GPIIGM) XMCS-6-POGOS I SGU 0.0-20.0 IGG (test code = GPIIGG) VMOM-6-TBPZA I 0.5 AHMET 0.0-20.0 The Antiphosp holipid IGA (test code = Syndrome (A PS) is a GPIIGA) clinical pathologiccondi tion that includes a clin ical event (vascularthromb osis, morta lity, thrombocytopeni a, etc.) andpersistent p ositivity of antiphosphol ipid antibodies (IgG orIgM MONY>40 GPL/MPL, IgG or IgM anti-B2GPI anti bodies, or thepresence of a Lupus Anticoagulant). The International[employer] nsensus guidelines sugg est that these isotypes must bepresent on tw o or more occasions and a t least 12 weeks apartto c onfirm antibody persis tence. Although the Ig A isotypehas been implicated in thrombotic e vents, these isotypesh ave not yet been included i nto the APS criteria. HOMOCYSTEINE TEST NOT 3.2-10.7 (test code = PERFORMED HOMOCY) umol/L HIGH SENSITIVITY mg/dl 0.000-0.747 H CRP (test code = CRPHS) [id number] 14:43:00 Test Item Value Reference Range Interpretation Comments FIBRINOGEN (test 640 MG/DL 160-450 H Excess admi nistration of code = FIB) anticoagulants and/or FibrinDegradati on Products may af fect Fibrinogen valu e. FACTOR [id number] 14:43:00 Test Item Value Reference Range Interpretation Comments FACTOR VII (test code = FAC7) 57 % 60-140 L ANTITHROMBIN III (ATIII)2018-07-09 14:43:00 Test Item Value Reference Range Interpretation Comments ANTITHROMBIN III (ATIII) 77 % 83-128 A Acq uired antithrombin (test code = AT3) deficiency may occur with renalfailu re associated with proteinuria nep hrotic syndrome,liver failure or cirrhosis or an immature liver secondary topremature bir th, accelerated con sumption due to severein jury, DIC, or recent thrombosis, and heparin therapy.Heredit philip deficiency of P rotein S show decreased levels butare rare. El evated Antithrombin le vels are not clinicallysigni ficant. PROTEIN C [id number] 14:43:00 Test Item Value Reference Range Interpretation Comments PROTEIN C 56 % 70-140 A Protein C defic iency may be FUNCTIONAL (test acquired du e to code = PROTCFN) recentthromb osis, oral anticoagulant t herapy, hepatic disorders,post- surgery, DIC, and vitamin K d eficiency. Hereditarydefic iency show decreased level s but are rare. ElevatedP rotein C levels are not clinically significant. On ly decreased levels are asso ciated with increased throm boticrisk. However, oral a nti-Xa or anti-thrombin m edications maycause falsel y increased levels of Prote in C. PROTEIN C [id number] 14:43:00 Test Item Value Reference Range Interpretation Comments PROTEIN C ANTIGENIC 71 % 70-140 Decrease d levels of (test code = PROTCAG) Protei n C Antigen may be found incongeni hetal deficiency, jerome atment with oral anticoagulants, liver disease, D.I.C. and post surgery. Perfor med by: [facility] [place] [address] PROTEIN S [id number] 14:43:00 Test Item Value Reference Range Interpretation Comments PROTEIN S TOTAL % (test code = PROTSTOT) PROTEIN S FUNC 70 % 74-148 L Protein S def iciency may be (test code = acquired due to PROTSFN) recentthrombosi s, oral anticoagulant t herapy, , oral contraceptives or hormone repl acement therapy, liverd ysfunction, recent surgery, DIC, and vitamin K deficiency.Here ditary deficiency of P rotein S show decreased level s butare rare. Elevated Protei n S levels are not clinicallys ignificant. Only decreased levels are associated with anincreased thrombotic risk . MTHF REDUCTASE (PCR) [id number] 14:43:00 Test Item Value Reference Range Interpretation Comments MTHF REDUCTASE (PCR) 677 (test code = MTHFR 677) LUPUS ANTICOAGULANT [id number] 14:31:00 Test Item Value Reference Range Interpretation Comments PROTHROMBIN TIME 17.8 SECONDS 9.3-12.9 H PATIENT (test code = PTP) INTERNATIONAL NORMAL 1.6 0.8-1.2 H TARGET RATIO (test code = INR BY IN DICATION INR) Indication INR1. Prophyl axis of venous thrombos is 2.0 - 3. 0 (orthopedic lillian renny), Prophylaxis of venous thrombos is (other than hig h-risk surgery), Mag tment of Deep Vein Thrombosis/Pulm onary Embolism, Preve ntion of systemic emb olism - Tissue heart va lves, Acute Myocardia l Infarction (to prevent systemic embo lism), Valvular heart disease, Atri al Fibrillation, Bileaflet mecha nical valve in aortic position.2. Mec hanical prosthetic valv es (high risk), 2.5 - 3.5 Presence of Lupus Anticoagu lant or Antiphospholi pid Antibodies, Pre vention of systemic e mbolism - Acute Myocard ial Infarction (t o prevent recurre nt infarct). THROMBOPLASTIN TIME 42.6 Seconds 25.0-39.5 H Ther apeutic Range: PARTIAL (test code = 61.8-83 .8 Sec PTT) Effective 07/21/2013 PTT 1:1 MIX TACTICAL AIR CONTROL PARTY (test SECS code = PTTMIX2) PTT 1:3 MIX (test SECS code = PTTMIX3) PT 1:2 MIX (test SECS code = PTMIX2) RVVT PATIENT (test 1.5 RATIO 0.0-1.2 H code = RVVTPAT) SILICA CLOTTING TIME 1.05 <=1.17 A Lupus Anticoagulant (test code = is NOT DETECTED . This SILCLOT) interpretationi s based on the test res ults. Prolonged scree patsy tests and negat rosetta confirmatory te stsmay be caused by fa ctor deficiencies or anticoagulantth erapy. Patient is on w arfarin and enoxaparin.Prev iously reported result : 1.05 Edited by: [facility] E on 07/06/18:[id number] / 1510: SILICA C LOTTING previously repo rted as: 1.05 ARTERIAL THROMBOPHILIA [id number] 14:31:00 Test Item Value Reference Interpretation Comments Range PROTHROMBIN 3 UNTRANSLATED (test code = [id number]) ACTIVATED PROT C 3.09 RATIO 2.31-5.00 Ratios > or = to 2.31 are RESISTANCE (test considered negative for code = APC) the FactorV Lei den. FACTOR V MUTATION (LEIDEN) (test code = FAC5M) PROTEIN S FREE 56 % 68-126 L Protein S def iciency may (test code = be acquired due to PROTSFR) recentthrombosi s, oral anticoagulant t herapy, , oralcontracepti ves or hormone replace ment therapy, liverd ysfunction, recent surgery, DIC, and vitamin K deficiency.Here ditary deficiency of P rotein S show decreased levels butare rare. El evated Protein S level s are not clinicallysigni ficant. Only decreased levels are associated with anincreased thr ombotic risk. MONY IGG (test 0.2 GPL <=15 code = ACAG) MONY IGA (test 0.5 APL <=12 code = ACAA) MONY IGM (test 3.5 MPL <=12.5 The Antiphosph olipid code = ACAM) Syndrome (APS) is a clinical pathologiccondi tion that includes a clin ical event (vascularthromb osis, morta lity, thrombocytopeni a, etc.) andpersistent p ositivity of antiphosphol ipid antibodies (IgG orIgM MONY>40 GPL/MPL, IgG or IgM anti-B2GPI anti bodies, or thepresence of a Lupus Anticoagulant). The InternationalCo nsensus guidelines sugg est that these isotypes must bepresent on tw o or more occasions and a t least 12 weeks apartto c onfirm antibody persis tence. Although the Ig A isotypehas been implicated in thrombotic e vents, these isotypesh ave not yet been included i nto the APS criteria. YGFS-0-UULQT I SMU <20 IGM (test code = GPIIGM) EWUP-5-NCXBV I UNITS <20 IGG (test code = GPIIGG) OTDE-7-MSEVV I 0.0-20.0 IGA (test code = GPIIGA) HOMOCYSTEINE TEST NOT 3.2-10.7 (test code = PERFORMED HOMOCY) umol/L HIGH SENSITIVITY mg/dl 0.000-0.747 H CRP (test code = CRPHS) [id number] 14:31:00 Test Item Value Reference Range Interpretation Comments FIBRINOGEN (test 640 MG/DL 160-450 H Excess admi nistration of code = FIB) anticoagulants and/or FibrinDegradati on Products may af fect Fibrinogen valu e. FACTOR [id number] 14:31:00 Test Item Value Reference Range Interpretation Comments FACTOR VII (test code = FAC7) 57 % 60-140 L ANTITHROMBIN III (ATIII)2018-07-09 14:31:00 Test Item Value Reference Range Interpretation Comments ANTITHROMBIN III (ATIII) 77 % 83-128 A Acq uired antithrombin (test code = AT3) deficiency may occur with renalfailu re associated with proteinuria nep hrotic syndrome,liver failure or cirrhosis or an immature liver secondary topremature bir th, accelerated con sumption due to severein jury, DIC, or recent thrombosis, and heparin therapy.Heredit philip deficiency of P rotein S show decreased levels butare rare. El evated Antithrombin le vels are not clinicallysigni ficant. PROTEIN C [id number] 14:31:00 Test Item Value Reference Range Interpretation Comments PROTEIN C 56 % 70-140 A Protein C defic iency may be FUNCTIONAL (test acquired du e to code = PROTCFN) recentthromb osis, oral anticoagulant t herapy, hepatic disorders,post- surgery, DIC, and vitamin K d eficiency. Hereditarydefic iency show decreased level s but are rare. ElevatedP rotein C levels are not clinically significant. On ly decreased levels are asso ciated with increased throm boticrisk. However, oral a nti-Xa or anti-thrombin m edications maycause falsel y increased levels of Prote in C. PROTEIN C [id number] 14:31:00 Test Item Value Reference Range Interpretation Comments PROTEIN C ANTIGENIC 71 % 70-140 Decrease d levels of (test code = PROTCAG) Protei n C Antigen may be found incongeni hetal deficiency, jerome atment with oral anticoagulants, liver disease, D.I.C. and post surgery. Perfor med by: [facility] [address] PROTEIN S [id number] 14:31:00 Test Item Value Reference Range Interpretation Comments PROTEIN S TOTAL % (test code = PROTSTOT) PROTEIN S FUNC 70 % 74-148 L Protein S def iciency may be (test code = acquired due to PROTSFN) recentthrombosi s, oral anticoagulant t herapy, , oral contraceptives or hormone repl acement therapy, liverd ysfunction, recent surgery, DIC, and vitamin K deficiency.Here ditary deficiency of P rotein S show decreased level s butare rare. Elevated Protei n S levels are not clinicallys ignificant. Only decreased levels are associated with anincreased thrombotic risk . MTHF REDUCTASE (PCR) [id number] 14:31:00 Test Item Value Reference Range Interpretation Comments MTHF REDUCTASE (PCR) 677 (test code = MTHFR 677)
[2019-11-07] MEDS ORDERED: LIDOCAINE 1% MPF 5 ML VIAL ONE (20:57)
--- NOTE | 2019-11-07 21:11 | ER ---
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 patient takes Warfarin and Plavix, bleeding is uncontrolled. Coronavirus screen: Proceed with normal triage. Ebola Screen: No symptoms or risks identified at this time. Initial Sepsis Screen: Does the patient meet any 2 criteria? No. Patient's initial sepsis screen is negative. Does the patient have a suspected source of infection? No. Patient's initial sepsis screen is negative. Risk Assessment: Do you want to hurt yourself or someone else? Patient reports no desire to harm self or others. Onset of symptoms was November 07, 2019 at 20:00. 20:36 Method Of Arrival: Ambulatory rv 20:36 Acuity: THANH 4 rv Triage Assessment: 21:00 General: Appears comfortable, Behavior is calm, cooperative. Pain: Complains of pain in rv right hand. EENT: No signs and/or symptoms were reported regarding the EENT system. Neuro: Level of Consciousness is awake, alert, obeys commands, Oriented to person, place, time, situation. Cardiovascular: Patient's skin is warm and dry. Respiratory: Airway is patent. Injury Description: Laceration sustained to dorsal aspect of middle phalanx of right index finger is clean, superficial, 0.5 to 2.5 cm long, bleeding moderately, was sustained 30-60 minutes ago. a small amount of bleeding noted at this time. Historical: - Allergies: 20:41 Beta Blockers (sensitive/hypotension); rv 20:41 Flomax; rv 20:41 Ibuprofen; rv 20:41 Neurontin; rv 20:41 Remeron; rv 20:41 Skelaxin; rv 20:41 Spironolactone; rv 20:41 Stadol; rv 20:41 tramadol; rv 20:41 Trazodone; rv - PMHx: 20:41 AAA; ADD/ADHD; Anemia; Anxiety; Atrial Fib; CAD; CHF; GERD; High Cholesterol; rv Myocardial infarction; Pacemaker; Pulmonary Embolism; - PSHx: 20:41 Hernia repair; rv - Immunization history:: Adult Immunizations up to date, Last tetanus immunization: up to date. - Social history:: Smoking status: Patient/guardian denies using tobacco, the patient reports quitting approximately 10 years ago. Screenin:40 Abuse screen: Denies threats or abuse. Denies injuries from another. Nutritional ca1 screening: No deficits noted. Tuberculosis screening: No symptoms or risk factors identified. 20:40 Fall Risk None identified. ca1 Assessment: 20:40 Reassessment: SEE TRIAGE ASSESSMENT. ca1 Vital Signs: 20:36 BP 123 / 84; Pulse 81; Resp 17; Temp 98.8; Pulse Ox 98% ; Weight 129.27 kg; Height 5 rv ft. 10 in. (177.80 cm); Pain 3/10; 21:16 BP 122 / 80; Pulse 80; Resp 18; Temp 98.5; Pulse Ox 100% on R/A; mg2 20:36 Body Mass Index 40.89 (129.27 kg, 177.80 cm) rv ED Course: 20:33 Patient arrived in ED. mr 20:35 Nicanor Joyner MD is Attending Physician. tw4 20:36 Miles Dowd RN is Primary Nurse. mg2 20:39 Triage completed. rv 20:41 Arm band placed on Patient placed in the treatment room, on a stretcher, Patient rv notified of wait time. 20:45 Patient has correct armband on for positive identification. Bed in low position. Call ca1 light in reach. Side rails up X 1. Pulse ox on. NIBP on. 21:00 Bandage applied. Pressure dressing applied. wound cleaning done. rv 21:10 Assist provider with laceration repair on dorsal aspect of middle phalanx of right ca1 index finger that was 2.5 cm. or less using sutures. Set up tray. Performed by Nicanor Joyner MD Dressed with 4X4s, Neosporin, Patient tolerated well. Patient did not have IV access during this emergency room visit. Administered Medications: No medications were administered Outcome: 21:11 Discharge ordered by . tw4 21:18 Discharged to home ambulatory. mg2 21:18 Condition: stable 21:18 Discharge instructions given to patient, Instructed on discharge instructions, follow up and referral plans. wound care, Demonstrated understanding of instructions, follow-up care, wound care. 21:19 Patient left the ED. mg2 Signatures: Sharlene Winchester Terrence, MD MD tw4 Miles Dowd, RN RN mg2 Suleiman Ramirez RN RN rv Lauren Minor RN RN ca1
--- NOTE | 2019-11-07 21:20 | EDPHYS ---
Physician Documentation [facility] Name: Marquis Nelson Age: 49 yrs Sex: Male : 1970 Arrival Date: 11/07/2019 Time: 20:33 Bed 7 Private MD: ED Physician Nicanor Joyner HPI: 11/06 21:12 This 49 yrs old Male presents to ER via Ambulatory with complaints of Finger tw4 laceration. 21:12 The patient or guardian reports injury, pain. The complaints affect the PIP of right tw4 index finger. Context: The problem was sustained at home, resulted from cut with knife. Onset: The symptoms/episode began/occurred just prior to arrival, today. Modifying factors: The symptoms are alleviated by nothing, the symptoms are aggravated by movement. Associated signs and symptoms: The patient has no apparent associated signs or symptoms. Severity of symptoms: At their worst the symptoms were moderate, in the emergency department the symptoms are unchanged. The patient has not experienced similar symptoms in the past. Historical: - Allergies: 20:41 Beta Blockers (sensitive/hypotension); rv 20:41 Flomax; rv 20:41 Ibuprofen; rv 20:41 Neurontin; rv 20:41 Remeron; rv 20:41 Skelaxin; rv 20:41 Spironolactone; rv 20:41 Stadol; rv 20:41 tramadol; rv 20:41 Trazodone; rv - PMHx: 20:41 AAA; ADD/ADHD; Anemia; Anxiety; Atrial Fib; CAD; CHF; GERD; High Cholesterol; rv Myocardial infarction; Pacemaker; Pulmonary Embolism; - PSHx: 20:41 Hernia repair; rv - Immunization history:: Adult Immunizations up to date, Last tetanus immunization: up to date. - Social history:: Smoking status: Patient/guardian denies using tobacco, the patient reports quitting approximately 10 years ago. ROS: 21:12 Constitutional: Negative for fever, chills, and weight loss, Eyes: Negative for injury, tw4 pain, redness, and discharge, ENT: Negative for injury, pain, and discharge, Cardiovascular: Negative for chest pain, palpitations, and edema, Respiratory: Negative for shortness of breath, cough, wheezing, and pleuritic chest pain, Abdomen/GI: Negative for abdominal pain, nausea, vomiting, diarrhea, and constipation, Skin: Negative for injury, rash, and discoloration, Neuro: Negative for headache, weakness, numbness, tingling, and seizure. 21:12 MS/extremity: Positive for laceration, tenderness. Exam: 21:12 Constitutional: This is a well developed, well nourished patient who is awake, alert, tw4 and in no acute distress. Head/Face: Normocephalic, atraumatic. Chest/axilla: Normal chest wall appearance and motion. Nontender with no deformity. No lesions are appreciated. Cardiovascular: Regular rate and rhythm with a normal S1 and S2. No gallops, murmurs, or rubs. Normal PMI, no JVD. No pulse deficits. Respiratory: Lungs have equal breath sounds bilaterally, clear to auscultation and percussion. No rales, rhonchi or wheezes noted. No increased work of breathing, no retractions or nasal flaring. Abdomen/GI: Soft, non-tender, with normal bowel sounds. No distension or tympany. No guarding or rebound. No evidence of tenderness throughout. Back: No spinal tenderness. No costovertebral tenderness. Full range of motion. Neuro: Awake and alert, GCS 15, oriented to person, place, time, and situation. Cranial nerves II-XII grossly intact. Motor strength 5/5 in all extremities. Sensory grossly intact. Cerebellar exam normal. Normal gait. 21:12 Musculoskeletal/extremity: Extremities: noted in the dorsal aspect of middle phalanx of right index finger: decreased ROM, laceration. Vital Signs: 20:36 BP 123 / 84; Pulse 81; Resp 17; Temp 98.8; Pulse Ox 98% ; Weight 129.27 kg; Height 5 rv ft. 10 in. (177.80 cm); Pain 3/10; 21:16 BP 122 / 80; Pulse 80; Resp 18; Temp 98.5; Pulse Ox 100% on R/A; mg2 20:36 Body Mass Index 40.89 (129.27 kg, 177.80 cm) rv Laceration: 21:12 Wound Repair of 5cm ( 2.0in ) subcutaneous laceration to dorsal aspect of proximal tw4 phalanx of right index finger. Distal neuro/vascular/tendon intact. Anesthesia: Wound infiltrated with 3 mls of 1% lidocaine. Wound prep: Moderate cleansing by me, Wound irrigation with saline by me. Skin closed with 3 3-0 Prolene using simple sutures and sterile technique. Skin closed with 1-0 Prolene using simple sutures and sterile technique. Dressed with Bacitracin, Kerlix. Patient tolerated well. MDM: 20:35 Patient medically screened. tw4 Administered Medications: No medications were administered Disposition: 11/07/19 21:11 Discharged to Home. Impression: Laceration of extensor muscle, fascia and tendon of right index finger at wrist and hand level. - Condition is Stable. - Discharge Instructions: Laceration Care, Adult. - Medication Reconciliation Form, Thank You Letter, Antibiotic Education, Prescription Opioid Use form. - Follow up: Private Physician; When: Upon discharge from the Emergency Department; Reason: Recheck today's complaints, Continuance of care, Re-evaluation by your physician. - Problem is new. - Symptoms have improved. Signatures: Nicanor Joyner MD MD tw4 Miles Dowd, RN RN mg2 Suleiman Ramirez RN RN rv Corrections: (The following items were deleted from the chart) 21:19 21:11 11/07/2019 21:11 Discharged to Home. Impression: Laceration of extensor muscle, mg2 fascia and tendon of right index finger at wrist and hand level. Condition is Stable. Forms are Medication Reconciliation Form, Thank You Letter, Antibiotic Education, Prescription Opioid Use. Follow up: Private Physician; When: Upon discharge from the Emergency Department; Reason: Recheck today's complaints, Continuance of care, Re-evaluation by your physician. Problem is new. Symptoms have improved. tw4
--- OUTSIDE RECORDS SUMMARY | 2019-11-07 21:28 | XMS REPORT | Clinical Summary ---
:1970 Author Organization [facility] - [facility] Address [address] [place] [id number] Care Team Providers Name Role Phone Elmer Andrade MD Primary Care Provider NAVJOT Espinoza Unavailable Unavailable MD Rocco Unavailable Mary Qeuzada MD Unavailable Genna Anand WINE MAKER Unavailable Unavailable MD Casimiro Unavailable Ricardo Rodriguez DO Bridge Attacher Allergies Active Allergy Reactions Severity Noted Date Comments Adhesive Tape-Silicones Other - See 04/24/2017 Zaki r tape only !! comments Tears skin. Beta-Blockers Other - See Medium 07/02/2016 Per patient "h eart (Beta-Adrenergic Blocking comments ra te drop, lethargic, Agts) weak" Tamsulosin Hcl Other - See 06/12/2016 comments Gabapentin Other - See 07/05/2016 diaphoretic comments Mirtazapine Other - See 08/28/2018 Urinary issues, comments gaining weight Quetiapine Fumarate Other - See Medium 04/12/2019 Involunt philip jerking comments Spironolactone Other - See 03/18/2017 Breast tender ness comments Butorphanol Tartrate Other - See Medium 06/12/2016 tachyca rdia comments Tramadol Unknown - See Medium 06/12/2016 [...] DAILY, Reported on 07/15/2016 3:40 PM Insulin [place], Disposable, Use as directed, QID, 400 Each 1 09/19/2017 Active (RELION PEN NEEDLES) 32 DX:E11.9 gauge x 5/32" Ndle Diclofenac Sodium 1 % Take 2-4 grams three 100 g 3 018 Active gelIndications: Chronic back times a day as needed for pain greater than 3 months pain duration pyridoxine HCl, vitamin B6, Take by mouth. 0 Active (VITAMIN B-6 ORAL) magnesium oxide 400 mg Take 1 tablet by mouth 90 tablet 3 08/2017 Active magnesium TabIndications: daily. Low magnesium level Additional information Patient taking differently: 2 tablet Oral DAILY, Reported on 06/02/2018 2:38 PM foLIC acid 1 mg Take 1 [...] Take 1 tablet by 90 tablet 3 2018 Active tablet mouth daily. atorvastatin (LIPITOR) 40 mg Take 1 tablet by 90 tablet 3 09/22 Active tablet mouth at bedtime. furosemide (LASIX) 80 mg tablet Take 80 mg by mouth 0 Active every morning and evening. aMILoride 5 mg Take 1 tablet by 60 tablet 2 11/02/2018 Active tabletIndications: Hypokalemia mouth 2 (two) times daily. Additional information Patient taking differently: 5 mg Oral TID, Reported on 06/04/2019 10:22 PM warfarin 10 mg tablet Take as directed by 60 tablet 3 10/31/19 19 Active [facility] based on INR results. warfarin 7.5 mg tablet Take as directed by 90 tablet 3 019 Active [facility] based on INR results. ferrous sulfate (IRON) 325 Take 1 tablet by mouth 3 270 tablet 3 11/06/2018 Active mg (65 mg iron) (three) times daily with tabletIndications: Iron meals. deficiency anemia due to chronic blood loss pantoprazole 40 mg EC Take 1 tablet by mouth 2 90 tablet 3 Active tablet (two) times daily. Cholecalciferol, Vitamin Take by mouth. 0 Active D3, (VITAMIN D3) 2,000 unit tablet polyethylene glycol Take 17 g by mouth daily. 238 g 3 11/2018 Active (MIRALAX) 17 gram/dose powderIndications: Constipation, unspecified constipation type cyanocobalamin (VITAMIN 1 mL by Intramuscular 12 mL 3 08/2018 Active B-12) 1,000 mcg/mL route every 2 (two) injectionIndications: weeks. Vitamin B12 deficiency allopurinol 300 mg Take 1 tablet by mouth 90 tablet 3 02/24/20 19 Active tabletIndications: Uric daily. acid stone in urine metformin ER 500 mg 24 hr Take 1 tablet by mouth 90 tablet 3 0 02/24/2019 Active tabletIndications: Type 2 daily with breakfast. diabetes mellitus with cardiac complication dulaglutide ([facility]) inject 0.75 mg under the 4 Syringe 4 0 02/24/2019 Active 0.75 mg/0.5 mL skin weekly. PnIjIndications: Type 2 diabetes mellitus with cardiac complication KCL 20 mEq Take 3 tablets by mouth 3 180 tablet 2 03/03/2019 Active tabletIndications: Acute (three) times daily. on chronic diastolic congestive heart failure, Hypopotassemia clonazePAM 1 mg Take 1 pill PO in the AM, 120 tablet 1 019 Active tabletIndications: 1 PO in the afternoon, 1 Generalized anxiety pill PO in the evening. disorder, Panic disorder May take additional 1 without agoraphobia pill as needed acute anxiety. desvenlafaxine succinate Take 2 tablets by mouth 60 tablet 1 1 Active (PRISTIQ) 100 mg 24 hr daily. tabletIndications: Severe episode of recurrent major depressive disorder, without psychotic features, Generalized anxiety disorder Ranolazine 1,000 mg tablet Take 1 tablet by mouth 2 60 tablet 4 05/07/2019 Active (two) times daily. ZINC ORAL Take by mouth. 0 Acti ve nystatin 100,000 unit/gram Apply to area(s) 2 (two) 60 g 11 05/15/2019 Active powderIndications: Skin times daily. yeast infection nitroglycerin (NITROSTAT) Place 1 tablet under the 1 Bottle 1 05/18/2019 Active 0.4 mg sublingual tablet tongue every 5 (five) minutes as needed for Chest pain. enoxaparin 100 mg/mL inject 1 mL under the 5 Syringe 0 019 Active injectionIndications: PAF skin daily. Patient needs (paroxysmal atrial to stop warfarin and fibrillation) start taking his Lovenox 5 days before his cardiac procedure hydrocortisone 2.5 % Apply to affected 454 g 11 06/01/2019 Active creamIndications: area(s) 2 (two) times Seborrheic dermatitis daily. If Insurance does not cover the jar then give tubes of cream. PROMETHAZINE 25 mg TAKE 1 TABLET BY MOUTH 30 tablet 11 06/06/20 19 Active tabletIndications: EVERY SIX HOURS NEEDED Non-intractable vomiting FOR NAUSEA OR VOMITING with nausea, unspecified vomiting type testosterone (ANDROGEL) Apply 2 Pumps to area(s) 75 g 3 1 08/03/2018 Active 20.25 mg/1.25 gram (1.62 daily. %) gel pumpIndications: Low testosterone enoxaparin 100 mg/mL inject 1.3 mL under the 3 Syringe 0 06/03 Active injectionIndications: skin daily. Chronic pulmonary embolism without acute cor pulmonale, unspecified pulmonary embolism type metOLazone 2.5 mg Take 1 tablet by mouth 8 tablet 0 9 Active tabletIndications: Vitamin weekly. B12 deficiency ARIPiprazole 10 mg Take 1 tablet by mouth 30 tablet 1 06/10/20 19 Active tabletIndications: daily. Generalized anxiety disorder, Panic disorder without agoraphobia, Severe episode of recurrent major depressive disorder, without psychotic features Active Problems Problem Noted Date SOB (shortness of breath) 06/04/2019 Pacemaker 05/03/2019 Bradycardia 10/06/2018 Congestive heart failure 08/31/2018 Volume overload 08/31/2018 Anticoagulation management encounter [Z51.81, Z79.01] 08/24/2018 Other pulmonary embolism without acute cor pulmonale, unspecified 08/08/2018 chronicity Status post placement of implantable loop recorder Tachycardia 01/06/2018 Angina at rest 01/01/2018 Pulmonary emboli 11/03/2017 Electrolyte abnormality 07/17/2017 Chronic diastolic congestive heart failure 04/25/2017 Other iron deficiency anemia 04/01/2017 Overview: Added automatically from request for lillian lawson [id number] Syncope 04/01/2017 Chest pain, rule out acute myocardial infarction 02/13 Hypokalemia 10/21/2016 (HFpEF) heart failure with preserved ejection fraction 09/29/2016 Anxiety 09/18/2016 Acute on chronic diastolic congestive heart failure SCHILLING (dyspnea on exertion) 09/16/2016 Precordial pain 09/16/2016 GREGORIO (obstructive sleep apnea) 09/16/2016 Dyspnea 09/16/2016 Fatigue 08/24/2016 Atypical chest pain 08/23/2016 Nephrolithiasis 07/20/2016 Morbid obesity with body mass index of 40.0-49.9 06/26 Dizziness 06/26/2016 Chest pain 06/12/2016 Coronary artery disease involving [place] coronary briseyda ry of [place] heart 06/12/2016 with angina pectoris CO (myocardial infarction) 06/12/2016 Type 2 diabetes mellitus without complication 06/12/20 16 Essential hypertension 06/12/2016 History of alcohol abuse Overview: Sober for 16 years Resolved Problems Problem Noted Date Resolved Date Chest pain radiating to arm 08/08/2016 08/19/2016 Abdominal pain 07/19/2016 08/19/2016 History of epidural anesthesia 07/04/2016 7 Morbid obesity with body mass index of 50 or higher 06/26/19 17 08/19/2016 Obesity (BMI 30-39.9) 06/12/2016 08/19/2016 Encounters Date Type Specialty Care Team Description 06/09/2019 Telephone Family Medicine Lupe, Assessment ( Chest Lilibeth Payne MD congestion) 06/07/2019 Nurse Visit Anti-coagulation Clinic Joe Johns pulmonary embolism without acute cor pulmonale, unspecified chronicity; Harley Anticoagulation management encounter MD Fei Nurse, [facility] Anticoag 06/07/2019 Refill Internal Medicine Lu[place], Viniciusill Req ualonso Payne MD 06/04/2019 Emergency Medicine - Inpatient Aren Nixon SOB (shortness of - only III, PA breath) 06/05/2019 Adal Moran MD 06/03/2019 Hospital Cardiac Film Library Clerk Robert Adkins Chronic diastolic congestive heart failure (Primary Dx); Encounter MD Namita Hypopotassemia Davy Tse MD Outpt-Simi, Ccl 06/02/2019 Telephone Endocrinology Diabetes Zhen Jones MD R efill Request & Metabolism 06/02/2019 Refill Internal Medicine Lupe, Refill Req uest Lilibeth Payne MD 06/01/2019 Office Visit Internal Medicine Lupe, Confusion (Primary Dx); Lilibeth Payne MD Fatigue, uns pecified type; Seborrheic derm atitis; Rash; Hair changes 05/27/2019 Systems Technologist Visit Clinical Medical Robert Adkins Cheyumiko merritt pain, Laboratory MD Namita unspecified type 1, Adc Lab 05/27/2019 Hospital Cardiac Carayannopoulos, PAF (paroxy smal atrial fibrillation) (Primary Dx); Encounter Electrophysiology MD Ho Bradycardia; Outpt-Simi, Pacemaker repro gramming/check Pacemaker/Icd 05/27/2019 Telephone Cardiac Film Library Clerk Robert Adkins Pre-Visi t Planning MD Namita 05/26/2019 Telephone Pulmonary Disease STAN Aguiar MD 05/26/2019 Telephone Cardiology Robert Adkins Notification MD Namita 05/26/2019 Telephone Cardiac Film Library Clerk Robert Adkins Appointmomo ent MD Namita (RHC/BX/EXERCIS E HEMODYNAMIC) 05/25/2019 Systems Technologist Visit Phlebotomy Robert Adkins Chronic diastolic MD Namita CHF (congestive Draw, Clc-Bls heart failure) Lab 05/25/2019 Office Visit Cardiology Robert Adkins valentino tolic CHF (congestive heart failure) (Primary Dx); MD Namita PAF (paroxysmal atrial fibrillation) 05/25/2019 Telephone Internal Medicine Lupe, Forms Lilibeth Payne MD 05/18/2019 Refill Cardiology Al Valiente Refill Reques t MD 05/14/2019 Nurse Visit Anti-coagulation Clinic Joe Johns pulmonary Christopher embolism porsche Enamorado MD acute cor pulmonale, Nurse, Vtc unspecified Anticoag chronicity 05/14/2019 Telephone Internal Medicine Lupe, Other (med ication) Lilibeth Payne MD 05/13/2019 Office Visit Internal Medicine Lu[place], Skin yeast infection (Primary Dx); Lilibeth Payne MD Skin problem ; Change of skin color; Other fatigue; Memory problem 05/13/2019 Orders Only Doctor Unassigned, [place] 05/10/2019 Telephone Cardiology Robert Adkins Assessment MD Namita 05/07/2019 Nurse Visit Anti-coagulation Clinic Joe Cabrera MD embolism without Nurse, Vtc acute cor pulmo nale, Anticoag unspecified chronicity 05/07/2019 Refill Cardiology Al Valiente, Refill Constance merritt MD 05/02/2019 Emergency Medicine - Inpatient Amisha Toth Che st pain - only J, DO 05/05/2019 Thaddeus Interiano MD 04/27/2019 Telephone Cardiology Robert Adkins Rx Concern/Q uestion; MD Namita Talk To Nurse 04/26/2019 Surgery Surgery Dagoberto Luna LUMBAR EPID ADÁN Marin MD STEROID INJECTI ON 04/26/2019 Anesthesia Event Surgery Genaro Glasgow CRNA Slann, Leonard J III, ATMOSPHERIC PHYSICIST 04/26/2019 Hospital Surgery Dagoberto Luna MD 04/26/2019 Orders Only Doctor Unassigned, [place] 04/21/2019 Telephone Cardiology Robert Adkins Lab Results; Orders MD Namita 04/20/2019 Systems Technologist Visit Phlebotomy Cale Silverman Hypopotassemia Vls-Lab 04/20/2019 [facility] Radiology Robert Adkins Encounter MD Namita 04/20/2019 [facility] Radiology Robert Adkins Encounter MD Namita 04/16/2019 Telephone Cardiology Robert Adkins LAB WORK MD Namita 04/13/2019 Systems Technologist Visit Phlebotomy Robert Adkins Chronic diastolic MD Namita CHF (congestive 2, Adc Lab heart failure) 04/12/2019 Surgery Surgery Dagoberto Luna LUMBAR EPID ADÁN Marin MD STEROID INJECTI ON 04/12/2019 Anesthesia Event Surgery Genaro Glasgow CRNA Slann, Leonard J III, ATMOSPHERIC PHYSICIST 04/12/2019 Hospital Surgery Dagoberto Luna MD 04/06/2019 Office Visit Cardiology Robert Adkins Chronic valentino tolic Breaux, MD CHF (congestive heart failure) (Primary Dx) 04/06/2019 Refill Endocrinology Diabetes Zhen Jones MD R efill Request & Metabolism 04/05/2019 Systems Technologist Visit Phlebotomy Robert Adkins Chronic diastolic MD Namita CHF (congestive 2, Adc Lab heart failure) 04/05/2019 Refill Endocrinology Diabetes Zhen Jones MD R efill Request & Metabolism 04/01/2019 Telephone Cardiology Robert Adkins Assessment MD Namita 04/01/2019 Refill Cardiology Al Valiente, Viniciusill Constance merritt MD 03/29/2019 Surgery Surgery Dagoberto Luna LUMBAR EPID ADÁN Marin MD STEROID INJECTI ON 03/29/2019 Anesthesia Event Surgery Genaro Glasgow CRNA 03/29/2019 Hospital Surgery Dagoberto Luna MD 03/24/2019 Office Visit Gastroenterology Bibiana, Abnormal li mildred enzymes (Primary Dx); MD Ioana Iron deficienc y anemia due to chronic blood loss; Tubular adenoma of colon 03/24/2019 Telephone Cardiology Robert Adkins Blood Pressu re MD Namita 03/16/2019 Telephone Cardiology Robert Adkins Lab Results; LAB MD Namita WORK 03/12/2019 Systems Technologist Visit Phlebotomy Robert Adkins diastolic MD Namita CHF (congestive 2, Adc Lab heart failure) 03/12/2019 Orders Only Doctor Unassigned, [place] 03/12/2019 Telephone Cardiology Robert Adkins Pre-op Clear nilson Breaux MD ([facility]) 03/11/2019 Refill Internal Medicine Linda Andrade Req gaby Payne MD from Last 3 Months Immunizations Name Administration Dates Next Due Td 06/26/2017, 03/19/2015 Family History Medical History Relation Name Comments Asthma Father CHF (congestive heart failure) Father COPD (chronic obstructive pulmonary Father disease) High cholesterol Father Hypertension Father Leukemia Father Leukemia Maternal Uncle High cholesterol Mother Hypertension Mother Cancer Paternal Grandmother unsure whic h kind Relation Name Status Comments Father Maternal Uncle Mother Paternal Grandmother Social History Tobacco Use Types Packs/Day Years Used Date Former Smoker Cigarettes 1 30 Quit: 06/26/19 15 Smokeless Tobacco: Never Used Tobacco Cessation: Counseling [...] Reading Time Taken Comments Blood Pressure 114/78 06/10/2019 12:34 PM RESEARCH RECRUITER Pulse 87 06/10/2019 12:34 PM RESEARCH RECRUITER Temperature 36.3 C (97.3 F) 06/05/2019 8:00 AM RESEARCH RECRUITER Respiratory Rate 17 06/10/2019 12:34 PM RESEARCH RECRUITER Oxygen Saturation 96% 06/05/2019 8:00 AM RESEARCH RECRUITER Inhaled Oxygen Concentration - - Weight 131.5 kg (290 lb) 06/10/2019 12:34 PM RESEARCH RECRUITER Height 177.8 cm (5' 10") 06/03/2019 2:21 PM RESEARCH RECRUITER Body Mass Index 41.61 06/03/2019 2:21 PM RESEARCH RECRUITER Plan of Treatment Date Type Specialty Care Team Description 06/11/2019 Office Visit Dermatology Kaitlin Dent MD [address] [place] [phone] 06/14/2019 Nurse Visit Anti-coagulation Clinic Nurse, Christen brooks 06/22/2019 Office Visit Cardiology Al Valiente M D [address] [place] [address] [address] [place] [address] [phone] 07/06/2019 Office Visit Internal Medicine Lilibeth Andrade MD [address] [place] [address] [phone] 07/13/2019 Office Visit Endocrinology Diabetes & JonesTre MD [address] [address] [phone] 08/17/2019 Office Visit Internal Medicine Lilibeth Andrade MD [address] [place] [address] [phone] 09/09/2019 Office Visit Internal Medicine Lilibeth Andrade MD [address] [facility] [address] [place], [place] [address] [phone] 09/28/2019 Office Visit Cardiology Robert Adkins MD [address] [place], [place] [address] 10/12/2019 Office Visit Internal Medicine Lilibeth Andrade MD [address] [facility] [address] [place], [place] [address] [phone] 10/27/2019 Office Visit Pulmonary Disease Max Aguiar MD [address] [facility] [address] [place], [place] [address] [phone] 12/02/2019 Appointment Cardiac Electrophysiology Outpt-Simi, Pacemaker/Icd 12/08/2019 Office Visit Ophthalmology Yariel Tineo MD [address] [place], [place] [address]d. [place], [place] [address] Health Maintenance Due Date Last Done Comments HgA1C 10/31/2019 05/02/2019, 02/24/2019, 07/28/2018, Additional history exists EYE EXAM 11/20/2019 11/19/2018, 11/13/2017 URINE MICROALBUMIN 02/07/2020 02/06/2019, 01/19/2018, 08/20/2016 PNEUMOCOCCAL 0-64 YEARS 02/24/2020 Postpone d from COMBINED SERIES (1 of 1 - 1974 (Refused) PPSV23) FOOT EXAM 02/25/2020 02/24/2019, 02/24/2019, 09/22/2018, Additional history exists INFLUENZA VACCINE (#1) 2020 Postponed from 02/21/2019 (Refu sed) LDL-C 05/02/2020 05/02/2019, 07/28/2018, 01/11/2018, Additional history exists Zoster Recombinant Vaccine 05/13/2020 Postp oned from (SHINGRIX) (1 of 2) 2019 ( Insurance / Financial) CREATININE (SERUM) 06/05/2020 06/05/2019, 06/04/2019, 05/27/2019, Additional history exists COLONOSCOPY 04/22/2027 04/22/2017 DTaP,Tdap,and Td Vaccines 06/26/2027 06/26/2017, 03/19/2015 Postponed from (1 - Tdap) 1980 (Not Indicated) Implants Implanted Type Area Phthalic Acid Purifier Device Shelf Model / Identifier Expiration Serial / Date Lot Prolene Mesh MESH Right: Ethicon 12/20/2020 PMSK / Implanted: Qty: 1 on 07/04/2016 by Alfonso Martinez MD at [facility] [employer] PMSK / [id number] Pacemaker PACEMAKER Stent-06/24/2016 Implanted: 06/24/2016 (Quantity not on file) Procedures Procedure Name Priority Date/Time Associated Diagnosis Comme nts POCT Routine 06/07/2019 Other pulmonary Results for PT/INR(COAGUCHEK) embolism without this p rocedure acute cor pulmonale, are in the unspecified results chronicity section. POCT GLUCOSE Routine 06/05/2019 Results for (AUTOMATED) 11:26 AM RESEARCH RECRUITER this procedure are in the results section. PHOSPHORUS Routine 06/05/2019 Results for 9:39 AM RESEARCH RECRUITER this procedure are in the results section. MAGNESIUM Routine 06/05/2019 Results for 9:39 AM RESEARCH RECRUITER this procedure are in the results section. N-TERMINAL PRO-BNP Routine 06/05/2019 Results f or 9:39 AM RESEARCH RECRUITER this procedure are in the results section. BASIC METABOLIC PANEL Routine 06/05/2019 Result s for (NA, K, CL, CO2, 9:39 AM RESEARCH RECRUITER this proced ure GLUCOSE, BUN, are in the CREATININE, CA) results section. TROPONIN I Routine 06/05/2019 Results for 9:39 AM RESEARCH RECRUITER this procedure are in the results section. URIC ACID LIVIA 06/05/2019 Results for 9:39 AM RESEARCH RECRUITER this procedure are in the results section. POCT GLUCOSE Routine 06/05/2019 Results for (AUTOMATED) 7:58 AM RESEARCH RECRUITER this procedure are in the results section. CBC WITH DIFFERENTIAL Routine 06/05/2019 Result s for 3:30 AM RESEARCH RECRUITER this procedure are in the results section. PROTHROMBIN TIME / Routine 06/05/2019 Results f or INR 3:30 AM RESEARCH RECRUITER this procedure are in the results section. CBC WITH DIFFERENTIAL Routine 06/05/2019 Result s for 3:30 AM RESEARCH RECRUITER this procedure are in the results section. POCT GLUCOSE Routine 06/04/2019 Results for (AUTOMATED) 11:31 PM RESEARCH RECRUITER this procedure are in the results section. CT THORAX W CONTRAST Routine 06/04/2019 SOB (shortness of Re sults for 7:40 PM RESEARCH RECRUITER breath) this procedure are in the results section. EKG-12 LEAD Routine 06/04/2019 7:18 PM RESEARCH RECRUITER CBC WITH DIFFERENTIAL STAT 06/04/2019 SOB (shortness of R esults for 7:13 PM RESEARCH RECRUITER breath) this procedure are in the results section. ACTIVATED PARTIAL STAT 06/04/2019 SOB (shortness of Resul ts for THRMPLAS [place] 7:13 PM RESEARCH RECRUITER breath) this procedure are in the results section. PROTHROMBIN TIME / STAT 06/04/2019 SOB (shortness of Resu lts for INR 7:13 PM RESEARCH RECRUITER breath) this procedure are in the results section. TROPONIN I STAT 06/04/2019 SOB (shortness of Results fo r 7:13 PM RESEARCH RECRUITER breath) this procedure are in the results section. N-TERMINAL PRO-BNP STAT 06/04/2019 SOB (shortness of Resu lts for 7:13 PM RESEARCH RECRUITER breath) this procedure are in the results section. COMP. METABOLIC PANEL STAT 06/04/2019 SOB (shortness of R esults for (30496) 7:13 PM RESEARCH RECRUITER breath) this procedure are in the results section. CBC WITH DIFFERENTIAL Routine 06/04/2019 SOB (shortness of R esults for 7:13 PM RESEARCH RECRUITER breath) this procedure are in the results section. EKG-12 LEAD STAT 06/04/2019 7:05 PM RESEARCH RECRUITER NOTICE OF PRIVACY Routine 06/04/2019 PRACTICES 6:35 PM RESEARCH RECRUITER CONSENT/REFUSAL FOR Routine 06/04/2019 DIAGNOSIS AND 6:35 PM RESEARCH RECRUITER TREATMENT HOSPITAL ADMISSION Routine 06/04/2019 12:01 AM RESEARCH RECRUITER SURGICAL PATHOLOGY Routine 06/03/2019 Chronic diastolic Resu lts for EXAM 4:20 PM RESEARCH RECRUITER congestive heart this proced ure failure are in the results section. CORONARY ANGIOGRAPHY Routine 06/03/2019 2:33 PM RESEARCH RECRUITER POCT GLUCOSE Routine 06/03/2019 Results for (AUTOMATED) 8:35 AM RESEARCH RECRUITER this procedure are in the results section. PROFILE / HEMOGRAM Routine 05/27/2019 Chest pain, Results f or 12:37 PM RESEARCH RECRUITER unspecified type this proced ure are in the results section. BASIC METABOLIC PANEL Routine 05/27/2019 Chest pain, Result s for (NA, K, CL, CO2, 12:37 PM RESEARCH RECRUITER unspecified type this pr ocedure GLUCOSE, BUN, are in the CREATININE, CA) results section. N-TERMINAL PRO-BNP Routine 05/25/2019 Chronic diastolic Resu lts for 3:17 PM RESEARCH RECRUITER CHF (congestive this procedu re heart failure) are in the results section. PROTHROMBIN TIME / Routine 05/25/2019 Chronic diastolic Resu lts for INR 3:17 PM RESEARCH RECRUITER CHF (congestive this procedu re heart failure) are in the results section. TRANSFERRIN Routine 05/25/2019 Chronic diastolic Results fo r 3:17 PM RESEARCH RECRUITER CHF (congestive this procedu re heart failure) are in the results section. FERRITIN SERUM Routine 05/25/2019 Chronic diastolic Results for 3:17 PM RESEARCH RECRUITER CHF (congestive this procedu re heart failure) are in the results section. POCT Routine 05/14/2019 Other pulmonary Results for PT/INR(COAGUCHEK) embolism without this p rocedure acute cor pulmonale, are in the unspecified results chronicity section. IMMTRAC2 CONSENT Routine 05/13/2019 12:01 AM RESEARCH RECRUITER POCT Routine 05/07/2019 Other pulmonary Results for PT/INR(COAGUCHEK) embolism without this p rocedure acute cor pulmonale, are in the unspecified results chronicity section. POCT GLUCOSE Routine 05/05/2019 Results for (AUTOMATED) 7:41 AM RESEARCH RECRUITER this procedure are in the results section. PROTHROMBIN TIME / Routine 05/05/2019 Results f or INR 3:57 AM RESEARCH RECRUITER this procedure are in the results section. POCT GLUCOSE Routine 05/04/2019 Results for (AUTOMATED) 7:43 PM RESEARCH RECRUITER this procedure are in the results section. POCT GLUCOSE Routine 05/04/2019 Results for (AUTOMATED) 11:26 AM RESEARCH RECRUITER this procedure are in the results section. POCT GLUCOSE Routine 05/04/2019 Results for (AUTOMATED) 7:35 AM RESEARCH RECRUITER this procedure are in the results section. PROTHROMBIN TIME / Routine 05/04/2019 Results f or INR 2:58 AM RESEARCH RECRUITER this procedure are in the results section. BASIC METABOLIC PANEL Routine 05/04/2019 Result s for (NA, K, CL, CO2, 2:58 AM RESEARCH RECRUITER this proced ure GLUCOSE, BUN, are in the CREATININE, CA) results section. POCT GLUCOSE Routine 05/03/2019 Results for (AUTOMATED) 7:41 PM RESEARCH RECRUITER this procedure are in the results section. POCT GLUCOSE Routine 05/03/2019 Results for (AUTOMATED) 4:27 PM RESEARCH RECRUITER this procedure are in the results section. POCT GLUCOSE Routine 05/03/2019 Results for (AUTOMATED) 11:27 AM RESEARCH RECRUITER this procedure are in the results section. ECHO ROUTINE Routine 05/03/2019 SOB (shortness of W/DOPPLER COLOR 11:25 AM RESEARCH RECRUITER breath) TROPONIN I Routine 05/03/2019 Results for 9:31 AM RESEARCH RECRUITER this procedure are in the results section. POCT GLUCOSE Routine 05/03/2019 Results for (AUTOMATED) 7:40 AM RESEARCH RECRUITER this procedure are in the results section. PROTHROMBIN TIME / Routine 05/03/2019 Results f or INR 2:40 AM RESEARCH RECRUITER this procedure are in the results section. BASIC METABOLIC PANEL Routine 05/03/2019 Result s for (NA, K, CL, CO2, 2:40 AM RESEARCH RECRUITER this proced ure GLUCOSE, BUN, are in the CREATININE, CA) results section. TROPONIN I Routine 05/03/2019 Results for 2:40 AM RESEARCH RECRUITER this procedure are in the results section. POCT GLUCOSE Routine 05/02/2019 Results for (AUTOMATED) 8:41 PM RESEARCH RECRUITER this procedure are in the results section. TROPONIN I Routine 05/02/2019 Results for 8:36 PM RESEARCH RECRUITER this procedure are in the results section. XR CHEST 1 VW STAT 05/02/2019 SOB (shortness of Results f or 3:39 PM RESEARCH RECRUITER breath) this procedure are in the results section. PROTHROMBIN TIME / STAT 05/02/2019 SOB (shortness of Resu lts for INR 3:29 PM RESEARCH RECRUITER breath) this procedure are in the results section. LIPID PANEL Add-on 05/02/2019 Results for (06347)(TOTAL 3:27 PM RESEARCH RECRUITER this procedure CHOLESTEROL, are in the TRIGLYCERIDES, HDL) results section. THYROID STIMULATING Add-on 05/02/2019 Results for HORMONE 3:27 PM RESEARCH RECRUITER this procedure are in the results section. GLYCOSYLATED Add-on 05/02/2019 Results for HEMOGLOBIN (A1C) 3:27 PM RESEARCH RECRUITER this proced ure are in the results section. CBC WITH DIFFERENTIAL STAT 05/02/2019 SOB (shortness of R esults for 3:27 PM RESEARCH RECRUITER breath) this procedure are in the results section. N-TERMINAL PRO-BNP STAT 05/02/2019 SOB (shortness of Resu lts for 3:27 PM RESEARCH RECRUITER breath) this procedure are in the results section. TROPONIN I STAT 05/02/2019 SOB (shortness of Results fo r 3:27 PM RESEARCH RECRUITER breath) this procedure are in the results section. HEPATIC FUNCTION STAT 05/02/2019 SOB (shortness of Result s for PANEL (49156) 3:27 PM RESEARCH RECRUITER breath) this procedure (ALB,T.PRO,BILI are in the T,BU/BC,ALT,AST,ALK results PHOS) section. BASIC METABOLIC PANEL STAT 05/02/2019 SOB (shortness of R esults for (NA, K, CL, CO2, 3:27 PM RESEARCH RECRUITER breath) this proced ure GLUCOSE, BUN, are in the CREATININE, CA) results section. CBC WITH DIFFERENTIAL Routine 05/02/2019 SOB (shortness of R esults for 3:27 PM RESEARCH RECRUITER breath) this procedure are in the results section. EKG-12 LEAD Routine 05/02/2019 3:26 PM RESEARCH RECRUITER EKG-12 LEAD STAT 05/02/2019 3:22 PM RESEARCH RECRUITER CONSENT/REFUSAL FOR Routine 05/02/2019 DIAGNOSIS AND 3:16 PM RESEARCH RECRUITER TREATMENT PATIENT AGREEMENTS Routine 05/02/2019 AND CONTRACTS 12:01 AM RESEARCH RECRUITER HOSPITAL ADMISSION Routine 05/02/2019 12:01 AM RESEARCH RECRUITER HOSPITAL ADM - MISC Routine 05/02/2019 12:01 AM RESEARCH RECRUITER FL TIME OR Routine 04/26/2019 Pain Results for (NON-REPORTABLE) 8:28 AM RESEARCH RECRUITER this proced ure are in the results section. LUMBAR EPIDURAL Level 5 04/26/2019 Back pain STEROID INJECTION (greater than 8:00 AM RESEARCH RECRUITER 5 days) POCT GLUCOSE Routine 04/26/2019 Results for (AUTOMATED) 6:46 AM RESEARCH RECRUITER this procedure are in the results section. POCT GLUCOSE(AGE Routine 04/26/2019 Results for >30DAYS) 6:46 AM RESEARCH RECRUITER this procedure are in the results section. DAY SURGERY - ADC Routine 04/26/2019 12:01 AM RESEARCH RECRUITER NM CARDIAC INFARCTION Routine 04/20/2019 Chronic diastolic R esults for SPECT 12:14 PM CDT CHF (congestive this procedu re heart failure) are in the results section. BASIC METABOLIC PANEL Routine 04/20/2019 Hypopotassemia Resu lts for (NA, K, CL, CO2, 12:09 PM CDT this proced ure GLUCOSE, BUN, are in the CREATININE, CA) results section. IMMUNOFIXATION, URINE Routine 04/13/2019 Chronic diastolic R esults for FOR PANEL 8:33 AM CDT CHF (congestive this procedu re heart failure) are in the results section. IMMUNOFIXATION, SERUM Routine 04/13/2019 Chronic diastolic R esults for 8:30 AM CDT CHF (congestive this procedu re heart failure) are in the results section. MAGNESIUM Routine 04/13/2019 Chronic diastolic Results fo r 8:30 AM CDT CHF (congestive this procedu re heart failure) are in the results section. BASIC METABOLIC PANEL Routine 04/13/2019 Chronic diastolic R esults for (NA, K, CL, CO2, 8:30 AM CDT CHF (congestive this pro cedure GLUCOSE, BUN, heart failure) are in the CREATININE, CA) results section. IMMUNOFIXATION, SERUM Routine 04/13/2019 Chronic diastolic R esults for 8:30 AM CDT CHF (congestive this procedu re heart failure) are in the results section. KAPPA-LAMBDA QUANT. Routine 04/13/2019 Chronic diastolic Res ults for FLC WITH RATIO 8:30 AM CDT CHF (congestive this proce dure heart failure) are in the results section. AGREEMENTS Routine 04/13/2019 AUTHORIZATIONS AND 12:01 AM CDT IRREVOCABLE ASSIGNMENTS (FORM 2001) [place] TIME OR Routine 04/12/2019 Pain management Results for (NON-REPORTABLE) 9:05 AM CDT this proced ure are in the results section. LUMBAR EPIDURAL [...] CDT N-TERMINAL PRO-BNP Routine 04/05/2019 Chronic diastolic Resu lts for 8:24 AM CDT CHF (congestive this procedu re heart failure) are in the results section. AGREEMENTS Routine 04/05/2019 AUTHORIZATIONS AND 12:01 AM CDT IRREVOCABLE ASSIGNMENTS (FORM 2001) FL TIME Routine 03/29/2019 Pain management Results for (NON-REPORTABLE) 8:20 AM CDT this proced ure are in the results section. LUMBAR EPIDURAL [...] FORMS MAGNESIUM Routine 03/12/2019 Chronic diastolic Results fo r 8:30 AM CDT CHF (congestive this procedu re heart failure) are in the results section. N-TERMINAL PRO-BNP Routine 03/12/2019 Chronic diastolic Resu lts for 8:30 AM CDT CHF (congestive this procedu re heart failure) are in the results section. BASIC METABOLIC PANEL Routine 03/12/2019 Chronic diastolic R esults for (NA, K, CL, CO2, 8:30 AM CDT CHF (congestive this pro cedure GLUCOSE, BUN, heart failure) are in the CREATININE, CA) results section. MEDICAL Routine 03/12/2019 RELEASE/CLEARANCE 12:01 AM CDT FORMS AGREEMENTS Routine 03/12/2019 AUTHORIZATIONS AND 12:01 AM CDT IRREVOCABLE ASSIGNMENTS (FORM 2000) from Last 3 Months Results POCT PT/INR(COAGUCHEK) (06/07/2019)Only the most recent of3 resultswithin the time period is included. Pathologist Sig nature POCT PT/INR 2.2 (A) 0.8 - 1.4 INR POCT PT/SEC 26.9 SEC Specimen Blood - CAPILLARY POCT GLUCOSE (AUTOMATED) (06/05/2019 11:26 AM RESEARCH RECRUITER)Only the most recent of16 resultswithin the time period is included. Pathologist Sig nature POCT GLU 198 (H) 70 - 110 mg/dL [facility] Specimen Blood Performing Organization Address City/State/Zipcode Phone Number [facility] CLIA: [id number], [address] [place] N-TERMINAL PRO-BNP (06/05/2019 9:39 AM RESEARCH RECRUITER)Only the most recent of6 results within the time period is included. Pathologist Sig nature NT-proBNP 52 <=125 pg/mL [facility] Specimen Blood - ARM, LEFT Narrative Performed At Biotin has been reported to cause a negative [facility] bias, interpret results relative to patient's use of biotin. Performing Organization Address City/State/Zipcode Phone Number [facility] CLIA: [id number], [address] BASIC METABOLIC PANEL (NA, K, CL, CO2, GLUCOSE, BUN, CREATININE, CA) (06/05/2019 9:39 AM RESEARCH RECRUITER)Only the most recent of8 resultswithin the time period is included. Pathologist Sig [employer] NA 136 135 - 145 [facility] mmol/L [facility] K 4.5 3.5 - 5.0 [facility] mmol/L [facility] CL 101 98 - 108 mmol/L [facility] CO2 TOTAL 30 23 - 31 mmol/L [facility] AGAP 5 2 - 16 [facility] BUN 15 7 - 23 mg/dL [facility] GLUCOSE 192 (H) 70 - 110 mg/dL [facility] CREATININE 1.15 0.60 - 1.25 [facility] mg/dL [facility] CALCIUM 9.5 8.6 - 10.6 [facility] mg/dL [facility] eGFR Calculation 67.3 mL/min/1.73m2 [facility] ([facility] LABORATORY [place]) eGFR Calculation 81.6 mL/min/1.73m2 [facility] () [facility] Specimen Blood - ARM, LEFT Narrative Performed At Association of Glomerular Filtration Rate (GFR) [facility] and Staging of Kidney Disease* [...] abnormalities in imaging tests). Performing Organization Address [facility] Phone Number [facility] CLIA: [id number], [address] [place] [address] TROPONIN I (06/05/2019 9:39 AM RESEARCH RECRUITER)Only the most recent of6 resultswithin the time period is included. Pathologist Sig nature TROPONIN I 0.017 <=0.034 ng/mL [facility] Specimen Blood - ARM, LEFT Narrative Performed At Equal or Less than 0.034 ng/ml---Normal [facility] Note: Cardiac troponin begins to rise 3-4 hours after the onset of ischemia. Repeat in 4-6 hours if the sample was drawn within 3-4 hours of the onset of the symptom and found normal. Between 0.035 and 0.120 ng/mL--- Borderline. Questionable myocardial injury or necros is Note: Serial measurement may be necessary to [...] patient's use of biotin. Performing Organization Address [facility] Phone Number [facility] CLIA: [id number], [address] [place] [address] MAGNESIUM (06/05/2019 9:39 AM RESEARCH RECRUITER)Only the most recent of3 resultswithin the time period is included. Pathologist Sig nature MAGNESIUM 2.3 1.7 - 2.4 mg/dL [facility] Specimen Blood - ARM, LEFT Performing Organization Address [facility] Phone Number [facility] [id number], [address] [place], [place] [address] URIC ACID (06/05/2019 9:39 AM RESEARCH RECRUITER) Pathologist Sig nature URIC ACID 6.2 3.6 - 8.0 mg/dL [facility] Specimen Blood - ARM, LEFT Performing Organization Address [facility] Phone Number [facility] CLIA: [id number], [address] PHOSPHORUS (06/05/2019 9:39 AM RESEARCH RECRUITER) Pathologist Sig nature PHOSPHORUS 3.1 2.5 - 5.0 mg/dL [facility] Specimen Blood - ARM, LEFT Performing Organization Address [facility] Phone Number [facility] CLIA: [id number], [address] CBC WITH DIFFERENTIAL (06/05/2019 3:30 AM RESEARCH RECRUITER)Only the most recent of3 results within the time period is included. Pathologist Sig nature WBC 12.17 (H) 4.20 - 10.70 [facility] 10*3/L [facility] RBC 4.74 4.26 - 5.52 [facility] 10*6/L [facility] HGB 12.2 12.2 - 16.4 [facility] g/dL [facility] HCT 37.7 (L) 38.4 - 49.3 % [facility] MCV 79.5 (L) 81.7 - 95.6 fL [facility] MCH 25.7 (L) 26.1 - 32.7 pg [facility] MCHC 32.4 31.2 - 35.0 [facility] g/dL [facility] RDW-SD 51.3 38.5 - 51.6 fL [facility] RDW-CV 19.5 (H) 12.1 - 15.4 % [facility] PLT 252 150 - 328 [facility] 10*3/L [facility] MPV 10.5 9.8 - 13.0 fL [facility] NRBC/100 WBC 0.0 0.0 - 10.0 /100 [facility] WBCs [facility] NRBC x10^3 <0.01 10*3/L [facility] GRAN MAT (NEUT) % 73.4 % [facility] IMM GRAN % 1.00 % [facility] LYMPH % 18.1 % [facility] MONO % 6.7 % [facility] EOS % 0.5 % [facility] BASO % 0.3 % [facility] GRAN MAT x10^3(ANC) 8.93 (H) 1.99 - 6.95 [facility] 10*3/uL HOSPITAL LABORATORY IMM GRAN x10^3 0.12 (H) 0.00 - 0.06 [facility] 10*3/uL HOSPITAL LAB[facility]ATORY LYMPH x10^3 2.20 1.09 - 3.23 [facility] 10*3/uL [facility] MONO x10^3 0.82 0.36 - 1.02 [facility] 10*3/uL [facility] EOS x10^3 0.06 0.06 - 0.53 [facility] 10*3/uL HOSPITAL LAB[facility]ATORY BASO x10^3 0.04 0.01 - 0.09 [facility] 10*3/uL HOSPITAL LAB[facility]ATORY Specimen Blood - ARM, LEFT Performing Organization Address City/[facility]/Zipcode Phone Number [facility] CLIA: [id number], [address] PROTHROMBIN TIME / INR (06/05/2019 3:30 AM RESEARCH RECRUITER)Only the most recent of7 results within the time period is included. PROTIME PATIENT 13.6 12.0 - 14.7 [facility] LABORATORY INR 1.1Comment: Normal [facility] INR <1.1; Warfarin [facility] Therapeutic range LABORATORY 2.0 to 3.0 or 2.5 to 3.5, depending upon the indications. Specimen Blood - ARM, LEFT Performing Organization Address [facility]/Zipcode Phone Number [facility] CLIA: [id number], [address] THORAX W CONTRAST (06/04/2019 7:40 PM RESEARCH RECRUITER) Specimen Impressions Performed At Mild mediastinal lymphadenopathy may be reactive. PACS/VR/DOSE 2. No infiltrates or effusions or edema. 3. No pericardial effusion. RL: [id number] Narrative Performed At Ordering Physician: AREN NIXON III PACS/VR/DOSE Clinical Indication: Shortness of breath Additional Clinical Information: Comparison: None Technique: CT scan of the chest obtained without contrast. CT Scan was performed using ALARA principles. Findings: Lung windows demonstrates symm etric lung volumes. There are no infiltrates or effusions. The heart size is normal. There is no edema. Soft tissue windows shows no pericardial effusion. There are slightly enlarged superior mediastinal and AP win cynthia and pretracheal window lymphadenopathy measuring 10 to 12 mm. T here is no significant hilar lymphadenopathy. Upper liver spleen enhances normally. Gallbladder is c ontracted. There is no adrenal mass. Procedure Note [facility], Radiant Results Inft User - 2018 7:52 PM RESEARCH RECRUITER Ordering Physician: AREN NIXON III Clinical Indication: Shortness of breath Additional Clinical Information: Comparison: None Technique: CT scan of the chest obtained without contrast. CT Scan was performed using ALARA principles. Findings: Lung windows demonstrates symm etric lung volumes. There are no infiltrates or effusions. The heart size is normal. There is no edema. Soft tissue windows shows no pericardial effusion. There are slightly enlarged superior mediastinal and AP win cynthia and pretracheal window lymphadenopathy measuring 10 to 12 mm. T here is no significant hilar lymphadenopathy. Upper liver spleen enhances normally. Ga llbladder is contracted. There is no adrenal mass. IMPRESSION Mild mediastinal lymphadenopathy may be reactive. 2. No infiltrates or effusions or edema. 3. No pericardial effusion. RL: [id number] Electronically signed by Shravan Blas at 7:51 PM Performing Organization Address City/State/Zipcode Phone Number PACS/VR/DOSE EKG-12 LEAD (06/04/2019 7:18 PM RESEARCH RECRUITER) Specimen Performing Organization Address City/State/Zipcode Phone Number HST aPTT (06/04/2019 7:13 PM RESEARCH RECRUITER) Pathologist Sig nature APTT Patient 42 (H) 23 - 38 Seconds [facility] Specimen Blood - VENOUS Narrative Performed At The [facility] patient population mean normal value [facility] for aPTT is 30 seconds. Performing Organization Address City/[facility]/Zipcode Phone Number [facility] CLIA: [id number], [address] [place], [place] [address] COMP. METABOLIC PANEL ([id number]) (06/04/2019 7:13 PM RESEARCH RECRUITER) Pathologist Sig nature NA 135 135 - 145 [facility] mmol/L [facility] K 4.4 3.5 - 5.0 [facility] mmol/L [facility] CL 98 98 - 108 mmol/L [facility] CO2 TOTAL 29 23 - 31 mmol/L [facility] AGAP 8 2 - 16 [facility] BUN 17 7 - 23 mg/dL [facility] GLUCOSE 181 (H) 70 - 110 mg/dL [facility] CREATININE 1.20 0.60 - 1.25 [facility] mg/dL [facility] TOTAL BILI 0.5 0.1 - 1.1 mg/dL [facility] CALCIUM 9.6 8.6 - 10.6 [facility] mg/dL [facility] T PROTEIN 8.2 6.3 - 8.2 g/dL [facility] ALBUMIN 4.1 3.5 - 5.0 g/dL [facility] ALK PHOS 118 34 - 122 U/L [facility] ALTv 38 5 - 50 U/L [facility] AST(SGOT) 33 13 - 40 U/L [facility] eGFR Calculation 64.1 mL/min/1.73m2 [facility] ([facility] LABORATORY [place]) eGFR Calculation 77.7 mL/min/1.73m2 [facility] ([facility]) [facility] Specimen Blood - VENOUS Narrative Performed At Association of Glomerular Filtration Rate (GFR) [facility] and Staging of Kidney Disease* [...] tests). Performing Organization Address City/State/Zipcode Phone Number [facility] CLIA: [id number], [address] [place], [place] [address] NOTICE OF PRIVACY PRACTICES (06/04/2019 6:35 PM RESEARCH RECRUITER) Specimen Performing Organization Address City/State/Zipcode Phone Number [facility] CONSENT/REFUSAL FOR DIAGNOSIS AND TREATMENT (06/04/2019 6:35 PM RESEARCH RECRUITER)Only the most recent of2 resultswithin the time period is included. Specimen Performing Organization Address City/State/Zipcode Phone Number [facility] HOSPITAL ADMISSION (06/04/2019 12:01 AM RESEARCH RECRUITER)Only the most recent of2 results within the time period is included. Specimen Performing Organization Address City/State/Zipcode Phone Number [facility] SURGICAL PATHOLOGY EXAM (06/03/2019 4:20 PM RESEARCH RECRUITER) Case Report Surgical Pathology Case: [id number] [facility] Authorizing Provider: Davy Ivy MD Collected: 06/03/2019 1620 SERVICES Ordering Location: [facility] Received: 06/03/2019 1838 Cardiac Catheterization Lab Pathologist: Roxann Colin MD PHD Specimen: MYOCARDIUM, R egular Final Diagnosis [facility] Martha Spann [facility] [place] [facility], ENDOMYOCARDIAL BIOPSIES: SERVICES signed by - MYOCARDIUM WITH NO PATHOLOGIC CHANGES. Cristi, - CONGO RED (FOR AMYLOID) AND IRON SPECIAL STAINS ARE NEGATIVE. MD Roxann PHD on - MINIMAL INTERSTITIAL FIBROSIS BY TRICHROME JERMAINE Bernal. 06/07/2019 at 1:17 PM I have personally reviewed a ll specimens/slides and agree with all statements made by residents, fellows or pathologist assistants whose name(s) may appear on this report. Clinical [facility] Information Please evaluate for Amyloidosis/hemochromatosis, thank s. SERVICES Gross Description Specimen A is received in a single container, the formalin container is labeled with the patient's name, [facility] number, "myocardium regular" and consists of 3 cheng-brown tissue fragments (0.3 x 0.1 x 0.1 cm [facility] in aggregate) which are filt ered through a biopsy bag and submitted in toto in A1. A Manish's trichrome stain is requested on block A1. SER YULISA Bianchi ([facility])cm Embedded Images [facility] SERVICES Specimen Tissue - MYOCARDIUM Performing Organization Address City/State/Zipcode Phone Number [facility] SERVICES CLIA: [id number], [address] [place], [place] [address] [facility] CORONARY ANGIOGRAPHY (06/03/2019 2:33 PM RESEARCH RECRUITER) Specimen Performing Organization Address City/[facility]/Zipcode Phone Number CATH CBC W/O DIFF (05/27/2019 12:37 PM RESEARCH RECRUITER) Pathologist Sig nature WBC 13.69 (H) 4.20 - 10.70 [facility] 10*3/L [facility] RBC 5.27 4.26 - 5.52 [facility] 10*6/L [facility] HGB 13.0 12.2 - 16.4 g/dL [facility] HCT 41.4 38.4 - 49.3 % [facility] MCH 24.7 (L) 26.1 - 32.7 pg [facility] MCV 78.6 (L) 81.7 - 95.6 fL [facility] MCHC 31.4 31.2 - 35.0 g/dL [facility] PLT 298 150 - 328 10*3/L [facility] MPV 9.6 (L) 9.8 - 13.0 fL [facility] RDW-CV 17.3 (H) 12.1 - 15.4 % [facility] RDW-SD 48.1 38.5 - 51.6 fL [facility] NRBC x10^3 <0.01 10*3/L [facility] NRBC/100 WBC 0.0 0.0 - 10.0 /100 [facility] WBCs HOSPITAL LABORATORY IPF % [facility] Specimen Blood - ARM, LEFT Performing Organization Address [facility] Phone Number [facility] CLIA: [id number], [address] [place], [place] [address] TRANSFERRIN (05/25/2019 3:17 PM RESEARCH RECRUITER) Pathologist Sig nature TRANSFERRN 205 168 - 336 mg/dL [facility] SERVICES Specimen Blood - ARM, LEFT Performing Organization Address City/State/Zipcode Phone Number [facility] SERVICES CLIA: [id number], [address] [place], [place] [address] FERRITIN SERUM (05/25/2019 3:17 PM RESEARCH RECRUITER) Pathologist Sig nature FERRITIN 94.4 18.0 - 464.0 ng/mL [facility] SERVICES-[facility] Specimen Blood - ARM, LEFT Narrative Performed At Biotin has been reported to cause a [facility] SE [facility] negative bias, interpret results relative to patient's use of biotin. Performing Organization Address City/State/Zipcode Phone Number [facility] CLIA: [id number], [address] [place] [address] SERVICES-[facility] [address] [id number] CONSENT (05/13/2019 12:01 AM RESEARCH RECRUITER) Specimen Performing Organization Address City/State/Zipcode Phone Number HIM ECHO ROUTINE W/DOPPLER COLOR (05/03/2019 11:25 AM RESEARCH RECRUITER) Specimen Performing Organization Address City/State/Zipcode Phone Number ECHO Chest 1 View (05/02/2019 3:39 PM RESEARCH RECRUITER) Specimen Impressions Performed At PACS/VR/DOSE No acute cardiopulmonary abnormality. I, Walter Pate MD., have review ed this study and agree with the above report. Narrative Performed At EXAM: XR CHEST 1 VW PACS/VR/DOSE HISTORY: sob COMPARISON: X-ray 11/07/2018 TECHNIQUE: Single AP view radiograph o f the chest FINDINGS: Left chest wall pacemaker with leads projecting over t he right atrium and right ventricle. The lungs are clear. No focal consolidat ion, pleural effusion or pneumothorax is seen. Heart remains mildly enlarged. No acute bony abnormality. Procedure Note [facility], Radiant Results Inft User - 2018 4:49 PM RESEARCH RECRUITER EXAM: XR CHEST 1 VW HISTORY: sob COMPARISON: X-ray 11/07/2018 TECHNIQUE: Single AP view radiograph of the chest FINDINGS: Left chest wall pacemaker with leads pro jecting over the right atrium and right ventricle. The lungs are clear. No focal consolidat ion, pleural effusion or pneumothorax is seen. Heart remains mildly enlarged. No acute bony abnormality. IMPRESSION No acute cardiopulmonary abnormality. I, Walter Pate MD., have reviewe d this study and agree with the above report. Performing Organization Address City/State/[facility] Phone Number PACS/VR/DOSE Glycosylated Hemoglobin (A1C) (05/02/2019 3:27 PM RESEARCH RECRUITER) Pathologist Sig nature HGB A1C 8.6 (H) 4.0 - 6.0 % NGSP [facility] LABORATORY Specimen Blood - VENOUS Narrative Performed At %A1C (NGSP) Interpretation (ADA) [facility] 4.8-5.6 Normal or (Non-Diabetic Ra nge) 5.7-6.4 Increased Risk (Pre-Diabet ic) >6.5 Diabetes Indicated Performing Organization Address [facility] Phone Number [facility] CLIA: [id number], [address] [place] [address] LIPID PANEL ([id number])(TOTAL CHOLESTEROL, TRIGLYCERIDES, HDL) (05/02/2019 3:27 PM RESEARCH RECRUITER) Pathologist Sig nature CHOL 204 (H) 120 - 200 mg/dL [facility] HDL 51 >40 mg/dL [facility] HDLC RATIO 4.0 <=5.0 [facility] TRIG 156 30 - 170 mg/dL [facility] LDL CHOL 122 <=160 mg/dL [facility] VLDL 31 5 - 60 mg/dL [facility] Specimen Blood - VENOUS Performing Organization Address [facility] Phone Number [facility] CLIA: [id number], [address] Hepatic Function Panel (ALB, T.PRO, BILI T, BU/BC, ALT, AST, ALK PHOS) (05/02/2019 3:27 PM RESEARCH RECRUITER) Pathologist Sig nature TOTAL BILI 0.5 0.1 - 1.1 mg/dL [facility] BILI UNCON 0.3 0.1 - 1.1 mg/dL [facility] BILI CONJ 0.0 0.0 - 0.3 mg/dL [facility] T PROTEIN 8.6 (H) 6.3 - 8.2 g/dL [facility] ALBUMIN 4.4 3.5 - 5.0 g/dL [facility] ALK PHOS 145 (H) 34 - 122 U/L [facility] ALTv 33 5 - 50 U/L [facility] AST(SGOT) 29 13 - 40 U/L [facility] Specimen Blood - VENOUS Performing Organization Address City/[facility] Phone Number [facility] CLIA: [id number], [address] THYROID STIMULATING HORMONE (05/02/2019 3:27 PM RESEARCH RECRUITER) Pathologist Sig nature TSH 2.69Comment: Biotin 0.45 - 4.70 [facility] has been reported [facility] to cause a negative bias, interpret results relative to patient's use of biotin. Specimen Blood - VENOUS Performing Organization Address [facility] Phone Number [facility] CLIA: [id number], [address] [place], [place] [address] EKG-12 LEAD (05/02/2019 3:26 PM RESEARCH RECRUITER) Specimen Performing Organization Address [facility] Phone Number HST PATIENT AGREEMENTS AND CONTRACTS (05/02/2019 12:01 AM RESEARCH RECRUITER) Specimen Performing Organization Address [facility]/Zipcode Phone Number [facility] HOSPITAL ADM - MISC (05/02/2019 12:01 AM RESEARCH RECRUITER) Specimen Performing Organization Address [facility] Phone Number [facility] FL TIME OR (NON-REPORTABLE) (04/26/2019 8:28 AM RESEARCH RECRUITER)Only the most recent of2 resultswithin the time period is included. Specimen Narrative Performed At These images do not require a Radiology diagnostic rep ort. PACS Performing Organization Address [facility] Phone Number PACS POCT Glucose (04/26/2019 6:46 AM RESEARCH RECRUITER)Only the most recent of3 resultswithin the time period is included. Pathologist Sig nature POCT Glu (age>30days) 150 (A) 70 - 110 mg/dL Specimen Blood - [facility] DAY SURGERY - ADC (04/26/2019 12:01 AM RESEARCH RECRUITER) Specimen Performing Organization Address City/[facility]/Zipcode Phone Number [facility] NM CARDIAC INFARCTION SPECT (04/20/2019 12:14 PM CDT) Specimen Impressions Performed At PACS/VR/DOSE Findings not suggestive of TTR amyloidos is. IJhony MD., have reviewed this study and agree with the above report. Narrative Performed At * * * * * * * * ORIGINAL REPORT * * * * * * * * PACS/VR/DOSE EXAM: NM CARDIAC INFARCTION SPECT HISTORY: 49-year-old male with suspected Amyloidosis, needs a PYP scan for ATTR. COMPARISON: None. TECHNIQUE: Patient was injected with 20.4 mCi techneti um 99m pyrophosphate intravenously. Following approximately 3 hours delay, planar anterior, left anterior oblique, and lateral images were acquired. SP ECT of the chest was subsequently performed. ARUN's were placed over the hea rt and right chest to calculate H/CL ratio. FINDINGS: Semiquantitative score (visual compariso n of cardiac to chest/background uptake: Grade 1. H/CL ratio: 1.3. Physiologic uptake seen in bones and kid neys. Procedure Note [facility], Radiant Results Inft User - 2018 2:42 PM CDT * * * * * * * * ORIGINAL REPORT * * * * * * * * EXAM: NM CARDIAC INFARCTION SPECT HISTORY: 49-year-old male with suspected Amyloidosis, needs a PYP scan for ATTR. COMPARISON: None. TECHNIQUE: Patient was injected with 20. 4 mCi technetium 99m pyrophosphate intravenously. Following approximately 3 hours delay, planar anterior, left anterior oblique, and lateral images wer e acquired. SPECT of the chest was subsequently performed. ARUN's were place d over the heart and right chest to calculate H/CL ratio. FINDINGS: Semiquantitative score (visual compariso n of cardiac to chest/background uptake: Grade 1. H/CL ratio: 1.3. Physiologic uptake seen in bones and kid neys. IMPRESSION Findings not suggestive of TTR amyloidos is. IJhony MD., have reviewed th is study and agree with the above report. Performing Organization Address City/State/Zipcode Phone Number PACS/VR/DOSE Immunofixation, Urine (04/13/2019 8:33 AM CDT) Pathologist Sig nature ALB U YANNI Negative [facility] Specimen Urine - URINE, CLEAN CATCH Performing Organization Address City/State/Zipcode Phone Number [facility] CLIA: [id number], [address] [place] [address] [facility] IMMUNOFIXATION, SERUM (04/13/2019 8:30 AM CDT) Pathologist [facility] T PROTEIN 7.7 6.3 - 8.2 g/dL [facility] ALBUMIN 3.8 3.5 - 5.0 g/dL [facility] IgG 1,630 (H) 636-1,600 mg/dL [facility] IgA 565 (H) 70 - 312 mg/dL [facility] IgM 235 56 - 352 mg/dL [facility] YANNI INTERP Marked polyclonal increase in serum IgA. [facility] Serum IgG at the upper limit of normal. S ERVICES Normal urine protein profile. No M-spike present in serum or urine. Specimen Blood Narrative Performed At This result has an attachment that is no t available. Performing Organization Address City/State/Zipcode Phone Number [facility] CLIA: [id number], [address] [place] [address] [facility] Quant. FLC with Ratio (04/13/2019 8:30 AM CDT) [facility] Qnt Free 3.15 (H) 0.33 - 1.94 [facility] mg/dL Lambda Qnt Free 1.88 0.57 - 2.63 [facility] mg/dL [facility]Lambda Free 1.68 (H) 0.26 - 1.65 [facility] Ratio Comment: Performed by [facility], [address] [place] [address] [id number] [email or web address] Piyush Price MD, Lab. Director Specimen Blood Performing Organization Address City/State/Zipcode Phone Number [facility] [address] [place] [address] AGREEMENTS AUTHORIZATIONS AND IRREVOCABLE ASSIGNMENTS (FORM 2000) (04/13/2019 12:01 AM CDT)Only the most recent of3 resultswithin the time period is included. Specimen Performing Organization Address City/State/Zipcode Phone Number [facility] DAY SURGERY - ADC (04/12/2019 12:01 AM CDT) Specimen Performing Organization Address City/State/Zipcode Phone Number [facility] FL TIME (NON-REPORTABLE) (03/29/2019 8:20 AM CDT) Specimen Narrative Performed At These images do not require a Radiology diagnostic rep ort. PACS Performing Organization Address City/State/Zipcode Phone Number [facility] DAY SURGERY - ADC (03/29/2019 12:01 AM CDT) Specimen Performing Organization Address City/State/Zipcode Phone Number [facility] MEDICAL RELEASE/CLEARANCE FORMS (03/18/2019 12:01 AM CDT)Only the most recent of 2 resultswithin the time period is included. Specimen Performing Organization Address City/State/Zipcode Phone Number HIM from Last 3 Months Insurance Payer Benefit Plan / Subscriber ID Effective Phone Address T ype Group Dates HIM [facility] [id number] 2017-[employer]ux [phone] [address] [employer] official.fm [id number] [place] [address] (Home) [place] [address] Advance Directives Name Relationship Healthcare Agent Communication Relationship Keaton Nelson Spouse Primary healthcare agent Elisabeth Soliz Sibling First alternate healthcare [phone] (Mobile)
--- OUTSIDE RECORDS SUMMARY | 2019-11-07 21:30 | XMS REPORT | Clinical Summary ---
:1970 Author Organization [facility] Address [address] [place] [address] Care Team Providers Name Role Phone Elmer Andrade MD Primary Care Provider NAVJOT Espinoza Unavailable Unavailable MD Rocco Unavailable Mary Quezada MD Unavailable Genna Anand ASSIGNMENT MANAGER Unavailable Unavailable MD Casimiro Unavailable Ricardo Rodriguez DO Shipwright Apprentice Allergies Active Allergy Reactions Severity Noted Date [...] DAILY, Reported on 07/15/2016 3:40 PM Insulin [place], Disposable, Use as directed, QID, 400 Each [...] breakfast. 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 PA (myocardial infarction) 06/12/2016 [...] Harley Anticoagulation management encounter MD Fei Nurse, [facility] Anticoag 06/07/2019 Refill Internal Medicine Lupe, Viniciusill Req ualonso Payne MD 06/04/2019 Emergency Medicine - Inpatient Aren Nixon SOB (shortness of - only III, PA breath) 06/05/2019 Adal Moran MD 06/03/2019 Hospital Cardiac Pillow Cleaner Robert Adkins Chronic diastolic congestive heart failure [...] Seborrheic derm atitis; Rash; Hair changes 05/27/2019 Electrolysis Investigator Visit Clinical Medical Robert Adkins Cheyumiko merritt pain, Laboratory MD Namita unspecified type 1, Adc Lab 05/27/2019 Hospital Cardiac Carayannopoulos, PAF (paroxy smal atrial fibrillation) (Primary Dx); Encounter Electrophysiology MD Ho Bradycardia; Outpt-Simi, Pacemaker repro gramming/check Pacemaker/Icd 05/27/2019 Telephone Cardiac Pillow Cleaner Robert Adkins Pre-Visi t Planning MD Namita 05/26/2019 Telephone Pulmonary Disease STAN Aguiar MD 05/26/2019 Telephone Cardiology Robert Adkins Notification MD Namita 05/26/2019 Telephone Cardiac Pillow Cleaner Robert Adkins Appointmomo ent MD Namita (RHC/BX/EXERCIS E HEMODYNAMIC) 05/25/2019 Electrolysis Investigator Visit Phlebotomy Robert Adkins Chronic diastolic MD [...] Memory problem 05/13/2019 Orders Only Doctor Unassigned, [place] 05/10/2019 Telephone Cardiology Robert Adkins Assessment MD [...] Genaro Glasgow CRNA Slann, Leonard J III, SPOOL WINDER 04/26/2019 Hospital Surgery Dagoberto Luna MD 04/26/2019 Orders Only Doctor Unassigned, [place] 04/21/2019 Telephone Cardiology Robert Adkins Lab Results; Orders MD Namita 04/20/2019 Electrolysis Investigator Visit Phlebotomy Cale Silverman Hypopotassemia Vls-Lab 04/20/2019 [facility] Radiology Robert Adkins Encounter MD Namita 04/20/2019 [facility] Radiology Robert Adkins Encounter MD Namita 04/16/2019 Telephone Cardiology Robert Adkins LAB WORK MD Namita 04/13/2019 Electrolysis Investigator Visit Phlebotomy Robert Adkins Chronic diastolic MD Namita CHF (congestive 2, Adc Lab heart failure) 04/12/2019 Surgery Surgery Dagoberto Luna LUMBAR EPID DAÁN Marin MD STEROID INJECTI ON 04/12/2019 Anesthesia Event Surgery Genaro Glasgow CRNA Slann, Leonard J III, SPOOL WINDER 04/12/2019 Hospital Surgery Dagoberto Luna MD 04/06/2019 Office Visit Cardiology Robert Adkins Chronic valentino tolic Breaux, MD CHF (congestive heart failure) (Primary Dx) 04/06/2019 Refill Endocrinology Diabetes Zhen Jones MD R efill Request & Metabolism 04/05/2019 Electrolysis Investigator Visit Phlebotomy Robert Adkins Chronic diastolic MD [...] Lab Results; LAB MD Namita WORK 03/12/2019 Electrolysis Investigator Visit Phlebotomy Robert Adkins diastolic MD Namita CHF (congestive 2, Adc Lab heart failure) 03/12/2019 Orders Only Doctor Unassigned, [place] 03/12/2019 Telephone Cardiology Robert Adkins Pre-op Clear nilson Breaux MD ([facility]) 03/11/2019 Refill Internal [...] Comments Blood Pressure 114/78 06/10/2019 12:34 PM ANALYZER SALES Pulse 87 06/10/2019 12:34 PM ANALYZER SALES Temperature 36.3 C (97.3 F) 06/05/2019 8:00 AM ANALYZER SALES Respiratory Rate 17 06/10/2019 12:34 PM ANALYZER SALES Oxygen Saturation 96% 06/05/2019 8:00 AM ANALYZER SALES Inhaled Oxygen Concentration - - Weight 131.5 kg (290 lb) 06/10/2019 12:34 PM ANALYZER SALES Height 177.8 cm (5' 10") 06/03/2019 2:21 PM ANALYZER SALES Body Mass Index 41.61 06/03/2019 2:21 PM [employer]NALYZER SALES Plan of Treatment Date Type Specialty Care Team Description 06/11/2019 Office Visit Dermatology Kaitlin Dent MD [address] [place] [phone] 06/14/2019 Nurse Visit Anti-coagulation Clinic Nurse, Christen brooks 06/22/2019 Office Visit Cardiology Al Valiente M D [address] [place] [address] [address] [place] [address] [phone] 07/06/2019 Office Visit Internal Medicine Lilibeth Andrade MD [address] [place] [address] [phone] 07/13/2019 Office Visit Endocrinology Diabetes & JonesTre MD [address] [address] [phone] 08/17/2019 Office Visit Internal Medicine Lilibeth Andrade MD [address] [place] [address] 15 [phone] 09/09/2019 Office Visit Internal Medicine Lilibeth Andrade MD [address] [facility] [address] [place], [place] [address] [phone] 09/28/2019 Office Visit Cardiology Robert Adkins MD [address] [place], [place] [address] 10/12/2019 Office Visit Internal Medicine Lilibeth Andrade MD [address] [facility] [address] [place], [place] [address] [phone] 10/27/2019 Office Visit Pulmonary Disease Max Aguiar MD [address] [facility] [address] [place], [place] [address] [phone] 12/02/2019 Appointment Cardiac Electrophysiology Outpt-Simi, Pacemaker/Icd 12/08/2019 Office Visit Ophthalmology Yariel Tineo MD [address] [place], [place] [address]d. [place], [place] [address] Health Maintenance Due Date [...] 1980 (Not Indicated) Implants Implanted Type Area Assistant Production Manager Device Shelf Model / Identifier Expiration Serial / Date Lot Prolene Mesh MESH Right: Ethicon 12/20/2020 PMSK / Implanted: Qty: 1 on 07/04/2016 by Alfonso Martinez MD at [facility] [employer] PMSK / [id number] Pacemaker PACEMAKER Stent-06/24/2016 Implanted: 06/24/2016 (Quantity not on file) Procedures Procedure Name Priority Date/Time Associated Diagnosis Comme nts POCT Routine 06/07/2019 Other pulmonary Results for PT/INR(COAGUCHEK) embolism without this p rocedure acute cor pulmonale, are in the unspecified results chronicity section. POCT GLUCOSE Routine 06/05/2019 Results for (AUTOMATED) 11:26 AM ANALYZER SALES this procedure are in the results section. PHOSPHORUS Routine 06/05/2019 Results for 9:39 AM ANALYZER SALES this procedure are in the results section. MAGNESIUM Routine 06/05/2019 Results for 9:39 AM ANALYZER SALES this procedure are in the results section. N-TERMINAL PRO-BNP Routine 06/05/2019 Results f or 9:39 AM ANALYZER SALES this procedure are in the results section. BASIC METABOLIC PANEL Routine 06/05/2019 Result s for (NA, K, CL, CO2, 9:39 AM ANALYZER SALES this proced ure GLUCOSE, BUN, are in the CREATININE, CA) results section. TROPONIN I Routine 06/05/2019 Results for 9:39 AM ANALYZER SALES this procedure are in the results section. URIC ACID LIVIA 06/05/2019 Results for 9:39 AM ANALYZER SALES this procedure are in the results section. POCT GLUCOSE Routine 06/05/2019 Results for (AUTOMATED) 7:58 AM ANALYZER SALES this procedure are in the results section. CBC WITH DIFFERENTIAL Routine 06/05/2019 Result s for 3:30 AM ANALYZER SALES this procedure are in the results section. PROTHROMBIN TIME / Routine 06/05/2019 Results f or INR 3:30 AM ANALYZER SALES this procedure are in the results section. CBC WITH DIFFERENTIAL Routine 06/05/2019 Result s for 3:30 AM ANALYZER SALES this procedure are in the results section. POCT GLUCOSE Routine 06/04/2019 Results for (AUTOMATED) 11:31 PM ANALYZER SALES this procedure are in the results section. CT THORAX W CONTRAST Routine 06/04/2019 SOB (shortness of Re sults for 7:40 PM ANALYZER SALES breath) this procedure are in the results section. EKG-12 LEAD Routine 06/04/2019 7:18 PM ANALYZER SALES CBC WITH DIFFERENTIAL STAT 06/04/2019 SOB (shortness of R esults for 7:13 PM ANALYZER SALES breath) this procedure are in the results section. ACTIVATED PARTIAL STAT 06/04/2019 SOB (shortness of Resul ts for THRMPLAS CAROLINA 7:13 PM ANALYZER SALES breath) this procedure are in the results section. PROTHROMBIN TIME / STAT 06/04/2019 SOB (shortness of Resu lts for INR 7:13 PM ANALYZER SALES breath) this procedure are in the results section. TROPONIN I STAT 06/04/2019 SOB (shortness of Results fo r 7:13 PM ANALYZER SALES breath) this procedure are in the results section. N-TERMINAL PRO-BNP STAT 06/04/2019 SOB (shortness of Resu lts for 7:13 PM ANALYZER SALES breath) this procedure are in the results section. COMP. METABOLIC PANEL STAT 06/04/2019 SOB (shortness of R esults for (04550) 7:13 PM ANALYZER SALES breath) this procedure are in the results section. CBC WITH DIFFERENTIAL Routine 06/04/2019 SOB (shortness of R esults for 7:13 PM ANALYZER SALES breath) this procedure are in the results section. EKG-12 LEAD STAT 06/04/2019 7:05 PM ANALYZER SALES NOTICE OF PRIVACY Routine 06/04/2019 PRACTICES 6:35 PM ANALYZER SALES CONSENT/REFUSAL FOR Routine 06/04/2019 DIAGNOSIS AND 6:35 PM ANALYZER SALES TREATMENT HOSPITAL ADMISSION Routine 06/04/2019 12:01 AM ANALYZER SALES SURGICAL PATHOLOGY Routine 06/03/2019 Chronic diastolic Resu lts for EXAM 4:20 PM ANALYZER SALES congestive heart this proced ure failure are in the results section. CORONARY ANGIOGRAPHY Routine 06/03/2019 2:33 PM ANALYZER SALES POCT GLUCOSE Routine 06/03/2019 Results for (AUTOMATED) 8:35 AM ANALYZER SALES this procedure are in the results section. PROFILE / HEMOGRAM Routine 05/27/2019 Chest pain, Results f or 12:37 PM ANALYZER SALES unspecified type this proced ure are in the results section. BASIC METABOLIC PANEL Routine 05/27/2019 Chest pain, Result s for (NA, K, CL, CO2, 12:37 PM ANALYZER SALES unspecified type this pr ocedure GLUCOSE, BUN, are in the CREATININE, CA) results section. N-TERMINAL PRO-BNP Routine 05/25/2019 Chronic diastolic Resu lts for 3:17 PM ANALYZER SALES CHF (congestive this procedu re heart failure) are in the results section. PROTHROMBIN TIME / Routine 05/25/2019 Chronic diastolic Resu lts for INR 3:17 PM ANALYZER SALES CHF (congestive this procedu re heart failure) are in the results section. TRANSFERRIN Routine 05/25/2019 Chronic diastolic Results fo r 3:17 PM ANALYZER SALES CHF (congestive this procedu re heart failure) are in the results section. FERRITIN SERUM Routine 05/25/2019 Chronic diastolic Results for 3:17 PM ANALYZER SALES CHF (congestive this procedu re heart failure) are in the results section. POCT Routine 05/14/2019 Other pulmonary Results for PT/INR(COAGUCHEK) embolism without this p rocedure acute cor pulmonale, are in the unspecified results chronicity section. IMMTRAC2 CONSENT Routine 05/13/2019 12:01 AM ANALYZER SALES POCT Routine 05/07/2019 Other pulmonary Results for PT/INR(COAGUCHEK) embolism without this p rocedure acute cor pulmonale, are in the unspecified results chronicity section. POCT GLUCOSE Routine 05/05/2019 Results for (AUTOMATED) 7:41 AM ANALYZER SALES this procedure are in the results section. PROTHROMBIN TIME / Routine 05/05/2019 Results f or INR 3:57 AM ANALYZER SALES this procedure are in the results section. POCT GLUCOSE Routine 05/04/2019 Results for (AUTOMATED) 7:43 PM ANALYZER SALES this procedure are in the results section. POCT GLUCOSE Routine 05/04/2019 Results for (AUTOMATED) 11:26 AM ANALYZER SALES this procedure are in the results section. POCT GLUCOSE Routine 05/04/2019 Results for (AUTOMATED) 7:35 AM ANALYZER SALES this procedure are in the results section. PROTHROMBIN TIME / Routine 05/04/2019 Results f or INR 2:58 AM ANALYZER SALES this procedure are in the results section. BASIC METABOLIC PANEL Routine 05/04/2019 Result s for (NA, K, CL, CO2, 2:58 AM ANALYZER SALES this proced ure GLUCOSE, BUN, are in the CREATININE, CA) results section. POCT GLUCOSE Routine 05/03/2019 Results for (AUTOMATED) 7:41 PM ANALYZER SALES this procedure are in the results section. POCT GLUCOSE Routine 05/03/2019 Results for (AUTOMATED) 4:27 PM ANALYZER SALES this procedure are in the results section. POCT GLUCOSE Routine 05/03/2019 Results for (AUTOMATED) 11:27 AM ANALYZER SALES this procedure are in the results section. ECHO ROUTINE Routine 05/03/2019 SOB (shortness of W/DOPPLER COLOR 11:25 AM ANALYZER SALES breath) TROPONIN I Routine 05/03/2019 Results for 9:31 AM ANALYZER SALES this procedure are in the results section. POCT GLUCOSE Routine 05/03/2019 Results for (AUTOMATED) 7:40 AM ANALYZER SALES this procedure are in the results section. PROTHROMBIN TIME / Routine 05/03/2019 Results f or INR 2:40 AM ANALYZER SALES this procedure are in the results section. BASIC METABOLIC PANEL Routine 05/03/2019 Result s for (NA, K, CL, CO2, 2:40 AM ANALYZER SALES this proced ure GLUCOSE, BUN, are in the CREATININE, CA) results section. TROPONIN I Routine 05/03/2019 Results for 2:40 AM ANALYZER SALES this procedure are in the results section. POCT GLUCOSE Routine 05/02/2019 Results for (AUTOMATED) 8:41 PM ANALYZER SALES this procedure are in the results section. TROPONIN I Routine 05/02/2019 Results for 8:36 PM ANALYZER SALES this procedure are in the results section. XR CHEST 1 VW STAT 05/02/2019 SOB (shortness of Results f or 3:39 PM ANALYZER SALES breath) this procedure are in the results section. PROTHROMBIN TIME / STAT 05/02/2019 SOB (shortness of Resu lts for INR 3:29 PM ANALYZER SALES breath) this procedure are in the results section. LIPID PANEL Add-on 05/02/2019 Results for (53433)(TOTAL 3:27 PM ANALYZER SALES this procedure CHOLESTEROL, are in the TRIGLYCERIDES, HDL) results section. THYROID STIMULATING Add-on 05/02/2019 Results for HORMONE 3:27 PM ANALYZER SALES this procedure are in the results section. GLYCOSYLATED Add-on 05/02/2019 Results for HEMOGLOBIN (A1C) 3:27 PM ANALYZER SALES this proced ure are in the results section. CBC WITH DIFFERENTIAL STAT 05/02/2019 SOB (shortness of R esults for 3:27 PM ANALYZER SALES breath) this procedure are in the results section. N-TERMINAL PRO-BNP STAT 05/02/2019 SOB (shortness of Resu lts for 3:27 PM ANALYZER SALES breath) this procedure are in the results section. TROPONIN I STAT 05/02/2019 SOB (shortness of Results fo r 3:27 PM ANALYZER SALES breath) this procedure are in the results section. HEPATIC FUNCTION STAT 05/02/2019 SOB (shortness of Result s for PANEL (23607) 3:27 PM ANALYZER SALES breath) this procedure (ALB,T.PRO,BILI are in the T,BU/BC,ALT,AST,ALK results PHOS) section. BASIC METABOLIC PANEL STAT 05/02/2019 SOB (shortness of R esults for (NA, K, CL, CO2, 3:27 PM ANALYZER SALES breath) this proced ure GLUCOSE, BUN, are in the CREATININE, CA) results section. CBC WITH DIFFERENTIAL Routine 05/02/2019 SOB (shortness of R esults for 3:27 PM ANALYZER SALES breath) this procedure are in the results section. EKG-12 LEAD Routine 05/02/2019 3:26 PM ANALYZER SALES EKG-12 LEAD STAT 05/02/2019 3:22 PM ANALYZER SALES CONSENT/REFUSAL FOR Routine 05/02/2019 DIAGNOSIS AND 3:16 PM ANALYZER SALES TREATMENT PATIENT AGREEMENTS Routine 05/02/2019 AND CONTRACTS 12:01 AM ANALYZER SALES HOSPITAL ADMISSION Routine 05/02/2019 12:01 AM ANALYZER SALES HOSPITAL ADM - MISC Routine 05/02/2019 12:01 AM ANALYZER SALES FL TIME OR Routine 04/26/2019 Pain Results for (NON-REPORTABLE) 8:28 AM ANALYZER SALES this proced ure are in the results section. LUMBAR EPIDURAL Level 5 04/26/2019 Back pain STEROID INJECTION (greater than 8:00 AM ANALYZER SALES 5 days) POCT GLUCOSE Routine 04/26/2019 Results for (AUTOMATED) 6:46 AM ANALYZER SALES this procedure are in the results section. POCT GLUCOSE(AGE Routine 04/26/2019 Results for >30DAYS) 6:46 AM ANALYZER SALES this procedure are in the results section. DAY SURGERY - ADC Routine 04/26/2019 12:01 AM ANALYZER SALES NM CARDIAC INFARCTION Routine 04/20/2019 Chronic diastolic [...] CAPILLARY POCT GLUCOSE (AUTOMATED) (06/05/2019 11:26 AM ANALYZER SALES)Only the most recent of16 resultswithin the time period is included. Pathologist Sig nature POCT GLU 198 (H) 70 - 110 mg/dL [facility] Specimen Blood Performing Organization Address City/State/Zipcode Phone Number [facility] CLIA: [id number], [address] [place] [address] N-TERMINAL PRO-BNP (06/05/2019 9:39 AM ANALYZER SALES)Only the most recent of6 results within the time period is included. Pathologist Sig nature NT-proBNP 52 <=125 pg/mL [facility] Specimen Blood - ARM, LEFT Narrative Performed At Biotin has been reported to cause a negative [facility] bias, interpret results relative to patient's use of biotin. Performing Organization Address City/State/Zipcode Phone Number [facility] CLIA: [id number], [address] [place] [address] BASIC METABOLIC PANEL (NA, K, CL, CO2, GLUCOSE, BUN, CREATININE, CA) (06/05/2019 9:39 AM ANALYZER SALES)Only the most recent of8 resultswithin the time period is included. Pathologist Sig Proxino NA 136 135 - 145 [facility] mmol/L [facility] K 4.5 3.5 - 5.0 [facility] mmol/L [facility] CL 101 98 - 108 mmol/L [facility] CO2 TOTAL 30 23 - 31 mmol/L [facility] AGAP 5 2 - 16 [facility] BUN 15 7 - 23 mg/dL [facility] GLUCOSE 192 (H) 70 - 110 mg/dL [facility] CREATININE 1.15 0.60 - 1.25 [facility] mg/dL [facility] CALCIUM 9.5 8.6 - 10.6 [facility] mg/dL [facility] eGFR Calculation 67.3 mL/min/1.73m2 [facility] ([facility] [place]) eGFR Calculation 81.6 mL/min/1.73m2 [facility] () [facility] Specimen Blood - ARM, LEFT [...] abnormalities in imaging tests). Performing Organization Address [facility] Phone Number [facility] CLIA: [id number], [address] [place] [address] TROPONIN I (06/05/2019 9:39 AM ANALYZER SALES)Only the most recent of6 resultswithin the time period is included. Pathologist Sig nature TROPONIN I 0.017 <=0.034 ng/mL [facility] Specimen Blood - ARM, LEFT Narrative Performed At Equal or Less than 0.034 ng/ml---Normal [facility] Note: Cardiac troponin begins [...] patient's use of biotin. Performing Organization Address [facility] Phone Number [facility] CLIA: [id number], [address] [place] [address] MAGNESIUM (06/05/2019 9:39 AM ANALYZER SALES)Only the most recent of3 resultswithin the time period is included. Pathologist Sig nature MAGNESIUM 2.3 1.7 - 2.4 mg/dL [facility] Specimen Blood - ARM, LEFT Performing Organization Address [facility] Phone Number [id number], [address] [place], [place] [address] URIC ACID (06/05/2019 9:39 AM ANALYZER SALES) Pathologist Sig nature URIC ACID 6.2 3.6 - 8.0 mg/dL [facility] Specimen Blood - ARM, LEFT Performing Organization Address [facility] Phone Number [facility] CLIA: [id number], [address] [place] [address] PHOSPHORUS (06/05/2019 9:39 AM ANALYZER SALES) Pathologist Sig nature PHOSPHORUS 3.1 2.5 - 5.0 mg/dL [facility] Specimen Blood - ARM, LEFT Performing Organization Address [facility] Phone Number [facility] CLIA: [id number], [address] [place] [address] CBC WITH DIFFERENTIAL (06/05/2019 3:30 AM ANALYZER SALES)Only the most recent of3 results within the time period is included. Pathologist Sig nature WBC 12.17 (H) 4.20 - 10.70 [facility] 10*3/L [facility] RBC 4.74 4.26 - 5.52 [facility] 10*6/L [facility] HGB 12.2 12.2 - 16.4 [facility] g/dL [facility] HCT 37.7 (L) 38.4 - 49.3 % [facility] MCV 79.5 (L) 81.7 - 95.6 fL [facility] MCH 25.7 (L) 26.1 - 32.7 pg [facility] MCHC 32.4 31.2 - 35.0 [facility] g/dL [facility] RDW-SD 51.3 38.5 - 51.6 fL [facility] RDW-CV 19.5 (H) 12.1 - 15.4 % [facility] PLT 252 150 - 328 [facility] 10*3/L [facility] MPV 10.5 9.8 - 13.0 fL [facility] NRBC/100 WBC 0.0 0.0 - 10.0 /100 [facility] WBCs [facility] NRBC x10^3 <0.01 10*3/L [facility] GRAN MAT (NEUT) % 73.4 % [facility] IMM GRAN % 1.00 % [facility] LYMPH % 18.1 % [facility] MONO % 6.7 % [facility] EOS % 0.5 % [facility] BASO % 0.3 % [facility] GRAN MAT x10^3(ANC) 8.93 (H) 1.99 - 6.95 [facility] 10*3/uL HOSPITAL LABORATORY IMM GRAN x10^3 0.12 (H) 0.00 - 0.06 [facility] 10*3/uL HOSPITAL LABORATORY LYMPH x10^3 2.20 1.09 - 3.23 [facility] 10*3/uL [facility] MONO x10^3 0.82 0.36 - 1.02 [facility] 10*3/uL [facility] EOS x10^3 0.06 0.06 - 0.53 [facility] 10*3/uL HOSPITAL LABORATORY BASO x10^3 0.04 0.01 - 0.09 [facility] 10*3/uL HOSPITAL LABORATORY Specimen Blood - ARM, LEFT Performing Organization Address City/[facility]/Zipcode Phone Number [facility] CLIA: [id number], [address] [address] PROTHROMBIN TIME / INR (06/05/2019 3:30 AM ANALYZER SALES)Only the most recent of7 results within the time period is included. PROTIME PATIENT 13.6 12.0 - 14.7 [facility] LABORATORY INR 1.1Comment: Normal [facility] INR <1.1; Warfarin [facility] Therapeutic range LABORATORY 2.0 to 3.0 or 2.5 to 3.5, depending upon the indications. Specimen Blood - ARM, LEFT Performing Organization Address [facility]/Zipcode Phone Number [facility] CLIA: [id number], [address] [place] [address] THORAX W CONTRAST (06/04/2019 7:40 PM ANALYZER SALES) Specimen Impressions Performed At Mild mediastinal lymphadenopathy may be reactive. PACS/VR/DOSE 2. No infiltrates or effusions or edema. 3. No pericardial effusion. RL: [id number] Narrative Performed At Ordering Physician: AREN NIXON [...] There is no adrenal mass. Procedure Note [facility], Radiant Results Inft User - 2018 7:52 PM ANALYZER SALES Ordering Physician: AREN NIXON III Clinical Indication: [...] Number PACS/VR/DOSE EKG-12 LEAD (06/04/2019 7:18 PM ANALYZER SALES) Specimen Performing Organization Address City/State/Zipcode Phone Number HST aPTT (06/04/2019 7:13 PM ANALYZER SALES) Pathologist Sig nature APTT Patient 42 (H) 23 - 38 Seconds [facility]OR[facility]ORY Specimen Blood - VENOUS Narrative Performed At The [facility] patient population mean normal value [facility] for aPTT is 30 seconds. Performing Organization Address City/[facility]/Zipcode Phone Number [facility] CLIA: [id number], [address] [place], [place] [address] COMP. METABOLIC PANEL (86887) (06/04/2019 7:13 PM ANALYZER SALES) Pathologist Sig nature NA 135 135 - 145 [facility] mmol/L [facility] K 4.4 3.5 - 5.0 [facility] mmol/L [facility] CL 98 98 - 108 mmol/L [facility] CO2 TOTAL 29 23 - 31 mmol/L [facility] AGAP 8 2 - 16 [facility] BUN 17 7 - 23 mg/dL [facility] GLUCOSE 181 (H) 70 - 110 mg/dL [facility] CREATININE 1.20 0.60 - 1.25 [facility] mg/dL [facility] TOTAL BILI 0.5 0.1 - 1.1 mg/dL [facility] CALCIUM 9.6 8.6 - 10.6 [facility] mg/dL [facility] T PROTEIN 8.2 6.3 - 8.2 g/dL [facility] ALBUMIN 4.1 3.5 - 5.0 g/dL [facility] ALK PHOS 118 34 - 122 U/L [facility] ALTv 38 5 - 50 U/L [facility] AST(SGOT) 33 13 - 40 U/L [facility] eGFR Calculation 64.1 mL/min/1.73m2 [facility] ([facility] LABORATORY [place]) eGFR Calculation 77.7 mL/min/1.73m2 [facility] ([facility]) [facility] Specimen Blood - VENOUS [...] tests). Performing Organization Address City/State/Zipcode Phone Number [facility] CLIA: [id number], [address] [place], [place] [address] NOTICE OF PRIVACY PRACTICES (06/04/2019 6:35 PM ANALYZER SALES) Specimen Performing Organization Address City/State/Zipcode Phone Number [facility] CONSENT/REFUSAL FOR DIAGNOSIS AND TREATMENT (06/04/2019 6:35 PM ANALYZER SALES)Only the most recent of2 resultswithin the time period is included. Specimen Performing Organization Address City/State/Zipcode Phone Number [facility] HOSPITAL ADMISSION (06/04/2019 12:01 AM ANALYZER SALES)Only the most recent of2 results within the time period is included. Specimen Performing Organization Address City/State/Zipcode Phone Number [facility] SURGICAL PATHOLOGY EXAM (06/03/2019 4:20 PM ANALYZER SALES) Case Report Surgical Pathology Case: [id number] [facility] Authorizing Provider: Davy Ivy MD Collected: 06/03/2019 1620 SERVICES Ordering Location: [facility] Received: 06/03/2019 1838 Cardiac Catheterization Lab Pathologist: Roxann Colin MD PHD Specimen: MYOCARDIUM, R egular Final Diagnosis [facility] LABOR[facility]ORY Martha Spann HABEMATOLEL HEART, ENDOMYOCARDIAL BIOPSIES: SERVICES signed by - [...] name(s) may appear on this report. Clinical [facility] Information Please evaluate for Amyloidosis/hemochromatosis, thank s. SERVICES Gross Description Specimen A is received in a single container, the formalin container is labeled with the patient's name, [facility] number, "myocardium regular" and consists of 3 cheng-brown tissue fragments (0.3 x 0.1 x 0.1 cm [facility] in aggregate) which are filt ered through a biopsy bag and submitted in toto in A1. A Manish's trichrome stain is requested on block A1. SER YULISA Bianchi ([facility])cm Embedded Images [facility] LABORATORY SERVICES Specimen Tissue - MYOCARDIUM Performing Organization Address City/State/Zipcode Phone Number [facility] LABORATORY SERVICES CLIA: [id number], [address] [place], [place] [address] [facility] CORONARY ANGIOGRAPHY (06/03/2019 2:33 PM ANALYZER SALES) Specimen Performing Organization Address City/[facility]/Zipcode Phone Number CATH CBC W/O DIFF (05/27/2019 12:37 PM ANALYZER SALES) Pathologist Sig nature WBC 13.69 (H) 4.20 - 10.70 [facility] 10*3/L [facility] RBC 5.27 4.26 - 5.52 [facility] 10*6/L [facility] HGB 13.0 12.2 - 16.4 g/dL [facility] HCT 41.4 38.4 - 49.3 % [facility] MCH 24.7 (L) 26.1 - 32.7 pg [facility] MCV 78.6 (L) 81.7 - 95.6 fL [facility] MCHC 31.4 31.2 - 35.0 g/dL [facility] PLT 298 150 - 328 10*3/L [facility] MPV 9.6 (L) 9.8 - 13.0 fL [facility] RDW-CV 17.3 (H) 12.1 - 15.4 % [facility] RDW-SD 48.1 38.5 - 51.6 fL [facility] NRBC x10^3 <0.01 10*3/L [facility] NRBC/100 WBC 0.0 0.0 - 10.0 /100 [facility] W[facility] HOSPITAL LABORATORY IPF % [facility] Specimen Blood - ARM, LEFT Performing Organization Address [facility] Phone Number [facility] CLIA: [id number], [address] [place], [place] [address] TRANSFERRIN (05/25/2019 3:17 PM ANALYZER SALES) Pathologist Sig nature TRANSFERRN 205 168 - 336 mg/dL [facility] LABORATORY SERVICES Specimen Blood - ARM, LEFT Performing Organization Address City/State/Zipcode Phone Number [facility] LABORATORY SERVICES CLIA: [id number], [address] [place], [place] [address] FERRITIN SERUM (05/25/2019 3:17 PM ANALYZER SALES) Pathologist Sig nature FERRITIN 94.4 18.0 - 464.0 ng/mL [facility] LABORATORY SERVICES-[facility] Specimen Blood - ARM, LEFT Narrative Performed At Biotin has been reported to cause a [facility] LABORAT[facility] SE [facility] negative bias, interpret results relative to patient's use of biotin. Performing Organization Address City/State/Zipcode Phone Number [facility] LAB[facility] CLIA: [id number], [address] [place] [address] SERVICES-[facility] [address] IMMTRAC2 CONSENT (05/13/2019 12:01 AM ANALYZER SALES) Specimen Performing Organization Address City/State/Zipcode Phone Number HIM ECHO ROUTINE W/DOPPLER COLOR (05/03/2019 11:25 AM ANALYZER SALES) Specimen Performing Organization Address City/State/Zipcode Phone Number ECHO Chest 1 View (05/02/2019 3:39 PM ANALYZER SALES) Specimen Impressions Performed At PACS/VR/DOSE No acute [...] enlarged. No acute bony abnormality. Procedure Note [facility], Radiant Results Inft User - 2018 4:49 PM ANALYZER SALES EXAM: XR CHEST 1 VW HISTORY: sob [...] with the above report. Performing Organization Address City/State/[facility] Phone Number PACS/VR/DOSE Glycosylated Hemoglobin (A1C) (05/02/2019 3:27 PM ANALYZER SALES) Pathologist Sig nature HGB A1C 8.6 (H) 4.0 - 6.0 % NGSP [facility] L LABORATORY Specimen Blood - VENOUS Narrative Performed At %A1C (NGSP) Interpretation (ADA) [facility] 4.8-5.6 Normal or (Non-Diabetic Ra nge) 5.7-6.4 Increased Risk (Pre-Diabet ic) >6.5 Diabetes Indicated Performing Organization Address [facility] Phone Number [facility] CLIA: [id number], [address] [place] [address] LIPID PANEL ([id number])(TOTAL CHOLESTEROL, TRIGLYCERIDES, HDL) (05/02/2019 3:27 PM ANALYZER SALES) Pathologist Sig nature CHOL 204 (H) 120 - 200 mg/dL [facility]ORY HDL 51 >40 mg/dL [facility] HDLC RATIO 4.0 <=5.0 [facility] TRIG 156 30 - 170 mg/dL [facility] LDL CHOL 122 <=160 mg/dL [facility] VLDL 31 5 - 60 mg/dL [facility] Specimen Blood - VENOUS Performing Organization Address [facility] Phone Number [facility] CLIA: [id number], [address] [place] [address] Hepatic Function Panel (ALB, T.PRO, BILI T, BU/BC, ALT, AST, ALK PHOS) (05/02/2019 3:27 PM ANALYZER SALES) Pathologist Sig nature TOTAL BILI 0.5 0.1 - 1.1 mg/dL [facility] LABORATORY BILI UNCON 0.3 0.1 - 1.1 mg/dL [facility] LABORATORY BILI CONJ 0.0 0.0 - 0.3 mg/dL [facility] T PROTEIN 8.6 (H) 6.3 - 8.2 g/dL [facility]ORY ALBUMIN 4.4 3.5 - 5.0 g/dL [facility] LABOR[facility]ORY ALK PHOS 145 (H) 34 - 122 U/L [facility] ALTv 33 5 - 50 U/L [facility] AST(SGOT) 29 13 - 40 U/L [facility]ORY Specimen Blood - VENOUS Performing Organization Address City/[facility] Phone Number [facility] CLIA: [id number], [address] [place] [address] THYROID STIMULATING HORMONE (05/02/2019 3:27 PM ANALYZER SALES) Pathologist Sig nature TSH 2.69Comment: Biotin 0.45 - 4.70 [facility] has been reported [facility] to cause a negative bias, interpret results relative to patient's use of biotin. Specimen Blood - VENOUS Performing Organization Address [facility] Phone Number [facility] CLIA: [id number], [address] [place], [place] [address] EKG-12 LEAD (05/02/2019 3:26 PM ANALYZER SALES) Specimen Performing Organization Address [facility] Phone Number [facility]ST PATIENT AGREEMENTS AND CONTRACTS (05/02/2019 12:01 AM ANALYZER SALES) Specimen Performing Organization Address [facility]/Zipcode Phone Number [facility] HOSPITAL ADM - MISC (05/02/2019 12:01 AM ANALYZER SALES) Specimen Performing Organization Address [facility] Phone Number [facility] FL TIME OR (NON-REPORTABLE) (04/26/2019 8:28 AM ANALYZER SALES)Only the most recent of2 resultswithin the time period is included. Specimen Narrative Performed At These images do not require a Radiology diagnostic rep ort. PACS Performing Organization Address [facility] Phone Number PACS POCT Glucose (04/26/2019 6:46 AM ANALYZER SALES)Only the most recent of3 resultswithin the time period is included. Pathologist Sig nature POCT Glu (age>30days) 150 (A) 70 - 110 mg/dL Specimen Blood - CAPILL[facility] DAY SURGERY - ADC (04/26/2019 12:01 AM ANALYZER SALES) Specimen Performing Organization Address City/[facility]/Zipcode Phone Number [facility] NM CARDIAC INFARCTION SPECT (04/20/2019 12:14 [...] in bones and kid neys. Procedure Note [facility], Radiant Results Inft User - 2018 [...] Pathologist Sig nature ALB U YANNI Negative [facility] LABORATORY SERVICES Specimen Urine - URINE, CLEAN CATCH Performing Organization Address City/State/Zipcode Phone Number [facility] LAB[facility]ATORY SERVICES CLIA: [id number], [address] [place] [address] [facility] IMMUNOFIXATION, SERUM (04/13/2019 8:30 AM CDT) Pathologist [facility] T PROTEIN 7.7 6.3 - 8.2 g/dL [facility] LABORAT[facility] SERVICES ALBUMIN 3.8 3.5 - 5.0 g/dL [facility] SERVICES IgG 1,630 (H) 636-1,600 mg/dL [facility] SERVICES IgA 565 (H) 70 - 312 mg/dL [facility] SERVICES IgM 235 56 - 352 mg/dL [facility] LAB[facility]AT[facility] SERVICES YANNI INTERP Marked polyclonal increase in serum IgA. [facility] Serum IgG at the upper limit of normal. S ERVICES Normal urine protein profile. No M-spike present in serum or urine. Specimen Blood Narrative Performed At This result has an attachment that is no t available. Performing Organization Address City/State/Zipcode Phone Number [facility] LABORAT[facility] SERVICES CLIA: [id number], [address] [place] [address] [facility] [place]-Lambda Quant. FLC with Ratio (04/13/2019 8:30 AM CDT) [facility] [place] Qnt Free 3.15 (H) 0.33 - 1.94 [facility] mg/dL Lambda Qnt Free 1.88 0.57 - 2.63 [facility] mg/dL [place]/Lambda Free 1.68 (H) 0.26 - 1.65 [facility] Ratio Comment: Performed by [employer], [address] [place] [address] [id number] [email or web address], Piyush Price MD, Lab. Director Specimen Blood Performing Organization Address City/State/Zipcode Phone Number [facility] [address] [place] [address] AGREEMENTS AUTHORIZATIONS AND IRREVOCABLE ASSIGNMENTS (FORM 2000) (04/13/2019 12:01 AM CDT)Only the most recent of3 resultswithin the time period is included. Specimen Performing Organization Address City/State/Zipcode Phone Number [facility] DAY SURGERY - ADC (04/12/2019 12:01 [...] Phone Address T [employer]pe [employer] Dates [facility] [phone] 2017-[employer] [phone] [address] [facility] [employer] [facility] [place] [employer] [phone] [place] [address] (Home) [place] [address] Advance Directives Name Relationship Healthcare Agent Communication Relationship Keaton Nelson Spouse Primary healthcare agent Elisabeth Soliz Sibling First alternate healthcare [phone] agent (Mobile)
--- OUTSIDE RECORDS SUMMARY | 2019-11-07 21:32 | XMS REPORT | Clinical Summary ---
:1970 Author Organization [facility] Address [address] [place] [address] Care Team Providers Name Role Phone Elmer Andrade MD Primary Care Provider NAVJOT Espinoza Unavailable Unavailable MD Rocco Unavailable Mary Quezada MD Unavailable Genna Anand Unavailable Unavailable MD Casimiro Unavailable Ricardo Rodriguez DO Transition Specialist Allergies Active Allergy Reactions Severity Noted Date Comments Adhesive Tape-Silicones Other - See comments 7 Paper tape only !! Tears skin. Other reaction( s): Other (see comm ents) Paper tape only !! Tears skin. Alfuzosin Unknown - See 05/04/2015 comments Beta-Blockers Other - See comments Medium 12/05/2015 Per pa libertynt "heart (Beta-Adrenergic rate drop, Blocking Agts) lethargic, we ak" Other reaction( s): Other (see comments), Othe r (see comments), Other (see comments), Othe r (see comments), Other (see comm ents) Per patient "he art rate drop, lethargic, weak " But does take P RN for afib ??? All beta blocke rs cause bradycard ia But does take P RN for afib ??? Butorphanol Other - See comments Medium 08/30/2014 tachyca rdia "tachycardia" tachycardia "tachycardia" tachycardia Tamsulosin Hcl Other - See comments 06/12/2016 Gabapentin Other - See comments 07/05/2016 diaphor etic Other reaction( s): Other (see comm ents) Flushed and ove r sedation Flushed and ove r sedation diaphoretic Meperidine Other - See comments, 07/27/2017 Patien t unsure why Unknown - See documented in mr comments Patient unsure why documented in m r Metaxalone Other - See comments, 07/27/2017 Flushe d and over Unknown - See sedation comments Flushed and ove r sedation Mirtazapine Other - See comments 08/28/2018 Urinary issues, gaining weight Other reaction( s): Other (see comm ents) Urinary issues, gaining weight Quetiapine Other - See comments 07/27/2017 akathis ia akathisia Quetiapine Fumarate Other - See comments Medium 04/12/2019 Involuntary jerking Spironolactone Other - See comments 03/18/2017 Breas t tenderness Other reaction( s): Other (see comm ents) Breast tenderne ss Butorphanol Tartrate Other - See comments Medium 06/12/2016 tachycardia Tamsulosin Other - See comments 08/30/2014 Dilatio n of eyes and couldn't see "too over power " Dilation of eye s and couldn't see "too over power " Tramadol Unknown - See Medium 08/30/2014 Tachycardia comments, Other reaction( s): Palpitations Other (see comm ents) Tachycardia Tachycardia Tachycardia Trazodone Other - See comments 11/11/2016 Hot fla shes Other reaction( s): Other (see comm ents) sweating sweating Hot flashes Medications Medication Sig Dispensed Refills Start Date End Date Status docusate 100 mg Take 1 capsule by 30 capsule 0 07/04/2016 Active capsule mouth 2 (two) times daily as needed for Constipation. Additional information Patient taking differently: 100 mg Oral DAILY, Reported on 07/15/2016 3:40 PM Diclofenac Sodium 1 % Take 2-4 grams three 100 g 3 018 Active gelIndications: Chronic back times a day as needed pain greater than 3 months for pain duration pyridoxine HCl, vitamin B6, Take by mouth. 0 Active (VITAMIN B-6 ORAL) magnesium oxide 400 mg Take 1 tablet by mouth 90 tablet 3 08/2017 Active magnesium TabIndications: Low daily. magnesium level [...] 17 gram/dose powderIndications: Constipation, unspecified constipation type allopurinol 300 mg Take 1 tablet by mouth 90 tablet 3 02/24/20 19 Active tabletIndications: Uric daily. acid stone in urine metformin ER 500 mg 24 hr Take 1 tablet by mouth 90 tablet 3 0 02/24/2019 Active tabletIndications: Type 2 daily with breakfast. diabetes mellitus with cardiac complication dulaglutide (TRULICITY) inject 0.75 mg under the 4 Syringe 4 0 02/24/2019 Active 0.75 mg/0.5 mL skin weekly. PnIjIndications: Type 2 diabetes mellitus with cardiac complication KCL 20 mEq Take 3 tablets by mouth 3 180 tablet 2 03/03/2019 Active tabletIndications: Acute (three) times daily. on chronic diastolic congestive heart failure, Hypopotassemia Ranolazine 1,000 mg tablet Take 1 tablet [...] acute cor pulmonale, unspecified pulmonary embolism type cyanocobalamin (VITAMIN 1 mL by Intramuscular 12 mL 3 05/24 Active B-12) 1,000 mcg/mL route every 2 (two) injectionIndications: weeks. Vitamin B12 deficiency clindamycin 1 % Apply to affected 60 mL 6 06/11/2019 Active solutionIndications: area(s) 2 (two) times Folliculitis daily. urea 40 % Apply to area(s) daily. 198 g 6 06/11/2019 Active creamIndications: Xerosis cutis ondansetron (ZOFRAN ODT) 4 Take 1 tablet by mouth 14 tablet 0 06/23/2019 Active mg disintegrating every 8 (eight) hours as tabletIndications: needed for Nausea and Hyperglycemia Vomiting (N/V). Insulin [place], Use as directed, 1x 100 Each 1 06/25/2019 Active Disposable, (RELION PEN daily, DX:E11.9 NEEDLES) 32 gauge x 5/32" Ndle Insulin Glargine (LANTUS inject 12-14 Units under 3 mL 0 07/07/2019 Active SOLOSTAR U-100 INSULIN) the skin daily. 100 unit/mL (3 mL) injection metOLazone 2.5 mg Take 1 tablet by mouth 2 10 tablet 2 Active tabletIndications: Vitamin (two) times weekly on B12 deficiency Friday and . ARIPiprazole 15 mg Take 1 tablet by mouth 30 tablet 1 07/15/19 20 Active tabletIndications: daily. Generalized anxiety disorder, Panic disorder without agoraphobia, Severe episode of recurrent major depressive disorder, without psychotic features clonazePAM 1 mg Take 1 pill PO in the AM, 120 tablet 1 020 Active tabletIndications: 1 PO in the afternoon, 1 Generalized anxiety pill PO in the evening. disorder, Panic disorder May take additional 1 without agoraphobia pill as needed acute anxiety. desvenlafaxine succinate Take 2 tablets by mouth 60 tablet 1 0 07/15/2019 Active (PRISTIQ) 100 mg 24 hr daily. tabletIndications: Severe episode of recurrent major depressive disorder, without psychotic features, Generalized anxiety disorder Active Problems Problem Noted Date SOB (shortness [...] Added automatically from request for lillian lawson [id number] Syncope 04/01/2017 Chest pain, rule out acute [...] 06/12/2016 Coronary artery disease involving t[place] coronary briseyda ry of t[place] heart 06/12/2016 with angina pectoris [place] (myocardial infarction) 06/12/2016 [...] Encounters Date Type Specialty Care Team Description 07/14/2019 Telephone Cardiology Robert Adkins Medication D ose MD Namita Change 07/13/2019 Heading Pinner Visit Phlebotomy Robert Adkins Chronic diastolic CHF (congestive heart failure); MD Namita Hypopotassemia 2, Adc Lab 07/13/2019 Office Visit Cardiology Al Valiente DOE (dyspnea on exertion) (Primary Dx); Chronic heart f ailure with preserved ejection fraction; Coronary artery disease involving tazlina coronary artery of tazlina heart without angina pectoris; Essential hyper tension; Pacemaker 07/07/2019 Office Visit Endocrinology Diabetes Zhen Jones MD T ype 2 diabetes mellitus with cardiac complication (Primary Dx); & Metabolism Secondary male hypogonadism; Dyslipidemia; Essential hyper tension; High serum marysol sterone 07/07/2019 [place]inner Visit Phlebotomy Robert Adkins Hypopota ssemia MD Namita 2, Adc Lab 07/07/2019 Orders Only Doctor Unassigned, [place] 07/06/2019 Office Visit Internal Medicine Lupe, Vitamin B1 2 deficiency (Primary Dx); Lilibeth Payne MD Fluid retent ion; Left foot pain; Dry skin; Type 2 diabetes mellitus without complication, with long-term current use of insulin 07/05/2019 Telephone Cardiology Robert Adkins Results MD Namita 06/25/2019 Telephone Endocrinology Diabetes Zhen Jones MD A ssessment (Triage ) & Metabolism 06/23/2019 Emergency Emergency Medicine Amisha Toth Hyper glycemia J, DO (Primary Dx) 06/23/2019 Orders Only Doctor Unassigned, [place] 06/14/2019 Nurse Visit Anti-coagulation Clinic Nat Anti coagulation management encounter; Harley Other pulmonary embolism without acute cor pulmonale, unspecified chronicity MD Fei Nurse, [facility] Anticoag 06/11/2019 Office Visit Dermatology Summer Kenney Folliculitis (Primary Dx); MD Rosa Xerosis cutis; Kaitlin Dent Other seborrhe ic keratosis MD Melodie 06/09/2019 Telephone Family Medicine Lupe, Assessment ( Chest Lilibeth Payne MD congestion) 06/07/2019 Nurse Visit Anti-coagulation Clinic Joe Johns r pulmonary embolism without acute cor pulmonale, unspecified chronicity; Harley Anticoagulation management encounter MD Fei Nurse, [facility] Anticoag 06/07/2019 Refill Internal Medicine Lupe, Refill Req uest Lilibeth Payne MD 06/04/2019 Emergency Medicine - Inpatient Aren Nixon SOB (shortness of - only III, PA breath) 06/05/2019 Adal Moran MD 06/03/2019 Hospital Cardiac Avionics Shop Supervisor Robert Adkins Chronic diastolic congestive heart failure (Primary Dx); Encounter MD Namita Hypopotassemia [place], MD Davy Outpt-Simi, Ccl 06/02/2019 Telephone Endocrinology Diabetes Zhen Jones MD R efill Request & Metabolism 06/02/2019 Refill Internal Medicine Lu[place], Refill Req uest Lilibeth Payne MD 06/01/2019 Office Visit Internal Medicine [place], Confusion (Primary Dx); Lilibeth Payne MD Fatigue, uns pecified type; Seborrheic derm atitis; Rash; Hair changes 05/27/2019 [place] Visit Clinical Medical Robert Adkins Cheyumiko t pain, Laboratory MD Namita unspecified type 1, Adc Lab 05/27/2019 [facility] Cardiac Carayannopoulos, PAF (paroxy smal atrial fibrillation) (Primary Dx); Encounter Electrophysiology MD Ho Bradycardia; Outpt-Simi, Pacemaker repro gramming/check Pacemaker/Icd 05/27/2019 Telephone Cardiac Avionics Shop Supervisor Robert Adkins Pre-Visi t Planning MD Namita 05/26/2019 Telephone Pulmonary Disease STAN Aguiar MD 05/26/2019 Telephone Cardiology Robert Adkins Notification MD Namita 05/26/2019 Telephone Cardiac Avionics Shop Supervisor Robert Adkins Appointmomo ent MD Namita (RHC/BX/EXERCIS E HEMODYNAMIC) 05/25/2019 [place]ading Pinner Visit Phlebotomy Robert Adkins Chronic diastolic MD Namita CHF (congestive Draw, Clc-Bls heart failure) Lab 05/25/2019 Office Visit Cardiology Robert Adkins valentino tolic CHF (congestive heart failure) (Primary Dx); MD Namita PAF (paroxysmal atrial fibrillation) 05/25/2019 Telephone Internal Medicine [place], Forms Lilibeth Payne MD 05/18/2019 Refill Cardiology Al Valiente, Refottoniel merritt MD 05/14/2019 Nurse Visit Anti-coagulation Clinic Joe Johns pulmonary Christopher embolism porsche Enamorado MD acute cor pulmonale, Nurse, Vtc unspecified Anticoag chronicity 05/14/2019 Telephone Internal Medicine [place], Other (med ication) Lilibeth Payne MD 05/13/2019 Office Visit Internal Medicine [place], Skin yeast infection (Primary Dx); Lilibeth Payne MD Skin problem ; Change of skin color; Other fatigue; Memory problem 05/13/2019 Orders Only Doctor Unassigned, [place] 05/10/2019 Telephone Cardiology Robert Adkins Assessment MD Namita 05/07/2019 Nurse Visit Anti-coagulation Clinic Joe Cabrera MD embolism without Nurse, Vtc acute cor pulmo nale, Anticoag unspecified chronicity 05/07/2019 Refill Cardiology Al Valiente Refill Reques t MD 05/02/2019 Emergency Medicine - Inpatient Amisha Toth Che st pain - only J, DO 05/05/2019 Thaddeus Interiano MD 04/27/2019 Telephone Cardiology Robert Adkins Rx Concern/Q uestion; MD Namita Talk To Nurse 04/26/2019 Surgery Surgery Dagoberto Luna LUMBAR EPID ADÁN Marin MD STEROID INJECTI ON 04/26/2019 Anesthesia Event Surgery Glasgow, Genaro R, FARM GENERAL MANAGER Evan Allred III, FARM GENERAL MANAGER 04/26/2019 Hospital Surgery Dagoberto Lnua Encounter MD Yumiko 04/26/2019 Orders Only Doctor Unassigned, [place] 04/21/2019 Telephone Cardiology Robert Adkins Lab Results; Orders MD Namita 04/20/2019 [place] Visit Phlebotomy Cale Silverman Hypopotassemia Vls-Lab 04/20/2019 [facility] Radiology Robert Adkins Encounter MD Namita 04/20/2019 [facility] Radiology Robert Adkins Encounter MD Namita 04/16/2019 Telephone Cardiology Robert Adkins LAB WORK MD Namita from Last 3 Months Immunizations [...] Sign Reading Time Taken Comments Blood Pressure 102/70 07/15/2019 2:04 PM ACUTE COORDINATOR Pulse 83 07/15/2019 2:04 PM ACUTE COORDINATOR Temperature 36.7 C (98 F) 07/06/2019 1:18 PM ACUTE COORDINATOR Respiratory Rate 18 07/15/2019 2:04 PM ACUTE COORDINATOR Oxygen Saturation 99% 07/13/2019 10:58 AM ACUTE COORDINATOR Inhaled Oxygen Concentration - - Weight 132.9 kg (293 lb) 07/15/2019 2:04 PM ACUTE COORDINATOR Height 177.8 cm (5' 10") 07/13/2019 10:58 AM ACUTE COORDINATOR Body Mass Index 42.04 07/13/2019 10:58 AM ACUTE COORDINATOR Plan of Treatment Date Type Specialty Care Team Description 07/16/2019 Nurse Visit Anti-coagulation Clinic Nurse, Vtc Antico ag 07/22/2019 Office Visit Dermatology Kaitlin Dent MD [address] [place] [phone] 08/17/2019 Office Visit Internal Medicine Lilibeth Andrade MD [address] [address] [phone] 09/09/2019 Office Visit Internal Medicine Lilibeth Andrade MD [address] [address] 09/28/2019 Office Visit Cardiology Robert Adkins MD 301 [facility] [address] [place], [place] [address] 10/12/2019 Office Visit Internal Medicine Lilibeth Andrade MD [address] [address] [phone] 10/19/2019 Office Visit Endocrinology Diabetes & JonesTre MD Metabolism [address] [place] [address] [phone] 10/27/2019 Office Visit Pulmonary Disease Max Aguiar MD 146 [facility] [address] [place], [place] [address] [phone] 11/02/2019 Office Visit Internal Medicine Lilibeth Andrade MD 146 [facility] [address] [place], [place] [address] [phone] 12/02/2019 Appointment Cardiac Electrophysiology Outpt-Simi, Pacemaker/Icd 12/08/2019 Office Visit Ophthalmology Yariel Tineo MD [address] [place] [address] Health Maintenance Due Date Last Done Comments EYE EXAM 11/20/2019 11/19/2018, 11/13/2017 HgA1C 01/05/2020 07/07/2019, 05/02/2019, 02/24/2019, Additional history exists URINE MICROALBUMIN 02/07/2020 02/06/2019, 01/19/2018, 08/20/2016 PNEUMOCOCCAL [...] 2019 ( Insurance / Financial) CREATININE (SERUM) 07/13/2020 07/13/2019, 07/07/2019, 06/23/2019, Additional history exists COLONOSCOPY 04/22/2027 04/22/2017 DTaP,Tdap,and Td Vaccines 06/26/2027 06/26/2017, 03/19/2015 Postponed from (1 - Tdap) 1980 (Not Indicated) Implants Implanted Type Area Drapery Supervisor Device Shelf Model / Identifier Expiration Serial / Date Lot Prolene Mesh MESH Right: Ethicon 12/20/2020 PMSK / Implanted: Qty: 1 on 07/04/2016 by Alfonso Martinez MD at [facility] [employer] PMSK / [id number] Pacemaker PACEMAKER Stent-06/24/2016 Implanted: 06/24/2016 (Quantity not on file) Procedures Procedure Name Priority Date/Time Associated Diagnosis Comme nts BASIC METABOLIC PANEL Routine 07/13/2019 Hypopotass emia Results for (NA, K, CL, CO2, 11:54 AM ACUTE COORDINATOR Chronic diastolic this p rocedure GLUCOSE, BUN, CHF (congestive are in the CREATININE, CA) heart failure) results section. MAGNESIUM Routine 07/13/2019 Chronic diastolic Results fo r 11:54 AM ACUTE COORDINATOR CHF (congestive this procedu re heart failure) are in the results section. BASIC METABOLIC PANEL Routine 07/07/2019 Hypopotassemia Resu lts for (NA, K, CL, CO2, 8:16 AM ACUTE COORDINATOR this proced ure GLUCOSE, BUN, are in the CREATININE, CA) results section. AGREEMENTS Routine 07/07/2019 AUTHORIZATIONS AND 12:01 AM ACUTE COORDINATOR IRREVOCABLE ASSIGNMENTS (FORM 2000) POCT HEMOGLOBIN A1C Routine 07/07/2019 Type 2 diabetes Resul ts for TEST mellitus with this procedure cardiac complication are in the results section. POCT GLUCOSE Routine 06/23/2019 Results for (AUTOMATED) 11:19 AM ACUTE COORDINATOR this procedure are in the results section. POCT GLUCOSE Routine 06/23/2019 Results for (AUTOMATED) 10:39 AM ACUTE COORDINATOR this procedure are in the results section. POCT GLUCOSE Routine 06/23/2019 Results for (AUTOMATED) 9:52 AM ACUTE COORDINATOR this procedure are in the results section. URINALYSIS STAT 06/23/2019 Hyperglycemia Results for 9:42 AM ACUTE COORDINATOR this procedure are in the results section. CBC WITH DIFFERENTIAL STAT 06/23/2019 Hyperglycemia Resul ts for 9:16 AM ACUTE COORDINATOR this procedure are in the results section. TROPONIN I STAT 06/23/2019 Hyperglycemia Results for 9:16 AM ACUTE COORDINATOR this procedure are in the results section. BASIC METABOLIC PANEL STAT 06/23/2019 Hyperglycemia Resul ts for (NA, K, CL, CO2, 9:16 AM ACUTE COORDINATOR this proced ure GLUCOSE, BUN, are in the CREATININE, CA) results section. CBC WITH DIFFERENTIAL Routine 06/23/2019 Hyperglycemia Resul ts for 9:16 AM ACUTE COORDINATOR this procedure are in the results section. POCT GLUCOSE Routine 06/23/2019 Results for (AUTOMATED) 9:10 AM ACUTE COORDINATOR this procedure are in the results section. NOTICE OF PRIVACY Routine 06/23/2019 PRACTICES 9:00 AM ACUTE COORDINATOR CONSENT/REFUSAL FOR Routine 06/23/2019 DIAGNOSIS AND 9:00 AM ACUTE COORDINATOR TREATMENT EMERGENCY SERVICES Routine 06/23/2019 AGREEMENTS AND 12:01 AM ACUTE COORDINATOR AUTHORIZATIONS POCT Routine 06/14/2019 Other pulmonary Results for PT/INR(COAGUCHEK) embolism without this p rocedure acute cor pulmonale, are in the unspecified results chronicity section. POCT Routine 06/07/2019 Other pulmonary Results for PT/INR(COAGUCHEK) embolism without this p rocedure acute cor pulmonale, are in the unspecified results chronicity section. POCT GLUCOSE Routine 06/05/2019 Results for (AUTOMATED) 11:26 AM ACUTE COORDINATOR this procedure are in the results section. PHOSPHORUS Routine 06/05/2019 Results for 9:39 AM ACUTE COORDINATOR this procedure are in the results section. MAGNESIUM Routine 06/05/2019 Results for 9:39 AM ACUTE COORDINATOR this procedure are in the results section. N-TERMINAL PRO-BNP Routine 06/05/2019 Results f or 9:39 AM ACUTE COORDINATOR this procedure are in the results section. BASIC METABOLIC PANEL Routine 06/05/2019 Result s for (NA, K, CL, CO2, 9:39 AM ACUTE COORDINATOR this proced ure GLUCOSE, BUN, are in the CREATININE, CA) results section. TROPONIN I Routine 06/05/2019 Results for 9:39 AM ACUTE COORDINATOR this procedure are in the results section. URIC ACID LIVIA 06/05/2019 Results for 9:39 AM ACUTE COORDINATOR this procedure are in the results section. POCT GLUCOSE Routine 06/05/2019 Results for (AUTOMATED) 7:58 AM ACUTE COORDINATOR this procedure are in the results section. CBC WITH DIFFERENTIAL Routine 06/05/2019 Result s for 3:30 AM ACUTE COORDINATOR this procedure are in the results section. PROTHROMBIN TIME / Routine 06/05/2019 Results f or INR 3:30 AM ACUTE COORDINATOR this procedure are in the results section. CBC WITH DIFFERENTIAL Routine 06/05/2019 Result s for 3:30 AM ACUTE COORDINATOR this procedure are in the results section. POCT GLUCOSE Routine 06/04/2019 Results for (AUTOMATED) 11:31 PM ACUTE COORDINATOR this procedure are in the results section. CT THORAX W CONTRAST Routine 06/04/2019 SOB (shortness of Re sults for 7:40 PM ACUTE COORDINATOR breath) this procedure are in the results section. EKG-12 LEAD Routine 06/04/2019 7:18 PM ACUTE COORDINATOR CBC WITH DIFFERENTIAL STAT 06/04/2019 SOB (shortness of R esults for 7:13 PM ACUTE COORDINATOR breath) this procedure are in the results section. ACTIVATED PARTIAL STAT 06/04/2019 SOB (shortness of Resul ts for THRMPLAS [place] 7:13 PM ACUTE COORDINATOR breath) this procedure are in the results section. PROTHROMBIN TIME / STAT 06/04/2019 SOB (shortness of Resu lts for INR 7:13 PM ACUTE COORDINATOR breath) this procedure are in the results section. TROPONIN I STAT 06/04/2019 SOB (shortness of Results fo r 7:13 PM ACUTE COORDINATOR breath) this procedure are in the results section. N-TERMINAL PRO-BNP STAT 06/04/2019 SOB (shortness of Resu lts for 7:13 PM ACUTE COORDINATOR breath) this procedure are in the results section. COMP. METABOLIC PANEL STAT 06/04/2019 SOB (shortness of R esults for (77899) 7:13 PM ACUTE COORDINATOR breath) this procedure are in the results section. CBC WITH DIFFERENTIAL Routine 06/04/2019 SOB (shortness of R esults for 7:13 PM ACUTE COORDINATOR breath) this procedure are in the results section. EKG-12 LEAD STAT 06/04/2019 7:05 PM ACUTE COORDINATOR NOTICE OF PRIVACY Routine 06/04/2019 PRACTICES 6:35 PM ACUTE COORDINATOR CONSENT/REFUSAL FOR Routine 06/04/2019 DIAGNOSIS AND 6:35 PM ACUTE COORDINATOR TREATMENT HOSPITAL ADMISSION Routine 06/04/2019 12:01 AM ACUTE COORDINATOR SURGICAL PATHOLOGY Routine 06/03/2019 Chronic diastolic Resu lts for EXAM 4:20 PM ACUTE COORDINATOR congestive heart this proced ure failure are in the results section. CORONARY ANGIOGRAPHY Routine 06/03/2019 2:33 PM ACUTE COORDINATOR POCT GLUCOSE Routine 06/03/2019 Results for (AUTOMATED) 8:35 AM ACUTE COORDINATOR this procedure are in the results section. OUTPATIENT CARDIAC Routine 06/03/2019 CATHETERIZATION 12:01 AM ACUTE COORDINATOR DOCUMENTS PROFILE / HEMOGRAM Routine 05/27/2019 Chest pain, Results f or 12:37 PM ACUTE COORDINATOR unspecified type this proced ure are in the results section. BASIC METABOLIC PANEL Routine 05/27/2019 Chest pain, Result s for (NA, K, CL, CO2, 12:37 PM ACUTE COORDINATOR unspecified type this pr ocedure GLUCOSE, BUN, are in the CREATININE, CA) results section. PACEMAKER DEVICE Routine 05/27/2019 CHECK 10:47 AM ACUTE COORDINATOR N-TERMINAL PRO-BNP Routine 05/25/2019 Chronic diastolic Resu lts for 3:17 PM ACUTE COORDINATOR CHF (congestive this procedu re heart failure) are in the results section. PROTHROMBIN TIME / Routine 05/25/2019 Chronic diastolic Resu lts for INR 3:17 PM ACUTE COORDINATOR CHF (congestive this procedu re heart failure) are in the results section. TRANSFERRIN Routine 05/25/2019 Chronic diastolic Results fo r 3:17 PM ACUTE COORDINATOR CHF (congestive this procedu re heart failure) are in the results section. FERRITIN SERUM Routine 05/25/2019 Chronic diastolic Results for 3:17 PM ACUTE COORDINATOR CHF (congestive this procedu re heart failure) are in the results section. POCT Routine 05/14/2019 Other pulmonary Results for PT/INR(COAGUCHEK) embolism without this p rocedure acute cor pulmonale, are in the unspecified results chronicity section. IMMTRAC2 CONSENT Routine 05/13/2019 12:01 AM ACUTE COORDINATOR POCT Routine 05/07/2019 Other pulmonary Results for PT/INR(COAGUCHEK) embolism without this p rocedure acute cor pulmonale, are in the unspecified results chronicity section. POCT GLUCOSE Routine 05/05/2019 Results for (AUTOMATED) 7:41 AM ACUTE COORDINATOR this procedure are in the results section. PROTHROMBIN TIME / Routine 05/05/2019 Results f or INR 3:57 AM ACUTE COORDINATOR this procedure are in the results section. POCT GLUCOSE Routine 05/04/2019 Results for (AUTOMATED) 7:43 PM ACUTE COORDINATOR this procedure are in the results section. POCT GLUCOSE Routine 05/04/2019 Results for (AUTOMATED) 11:26 AM ACUTE COORDINATOR this procedure are in the results section. POCT GLUCOSE Routine 05/04/2019 Results for (AUTOMATED) 7:35 AM ACUTE COORDINATOR this procedure are in the results section. PROTHROMBIN TIME / Routine 05/04/2019 Results f or INR 2:58 AM ACUTE COORDINATOR this procedure are in the results section. BASIC METABOLIC PANEL Routine 05/04/2019 Result s for (NA, K, CL, CO2, 2:58 AM ACUTE COORDINATOR this proced ure GLUCOSE, BUN, are in the CREATININE, CA) results section. POCT GLUCOSE Routine 05/03/2019 Results for (AUTOMATED) 7:41 PM ACUTE COORDINATOR this procedure are in the results section. POCT GLUCOSE Routine 05/03/2019 Results for (AUTOMATED) 4:27 PM ACUTE COORDINATOR this procedure are in the results section. POCT GLUCOSE Routine 05/03/2019 Results for (AUTOMATED) 11:27 AM ACUTE COORDINATOR this procedure are in the results section. ECHO ROUTINE Routine 05/03/2019 SOB (shortness of W/DOPPLER COLOR 11:25 AM ACUTE COORDINATOR breath) TROPONIN I Routine 05/03/2019 Results for 9:31 AM ACUTE COORDINATOR this procedure are in the results section. POCT GLUCOSE Routine 05/03/2019 Results for (AUTOMATED) 7:40 AM ACUTE COORDINATOR this procedure are in the results section. PROTHROMBIN TIME / Routine 05/03/2019 Results f or INR 2:40 AM ACUTE COORDINATOR this procedure are in the results section. BASIC METABOLIC PANEL Routine 05/03/2019 Result s for (NA, K, CL, CO2, 2:40 AM ACUTE COORDINATOR this proced ure GLUCOSE, BUN, are in the CREATININE, CA) results section. TROPONIN I Routine 05/03/2019 Results for 2:40 AM ACUTE COORDINATOR this procedure are in the results section. POCT GLUCOSE Routine 05/02/2019 Results for (AUTOMATED) 8:41 PM ACUTE COORDINATOR this procedure are in the results section. TROPONIN I Routine 05/02/2019 Results for 8:36 PM ACUTE COORDINATOR this procedure are in the results section. XR CHEST 1 VW STAT 05/02/2019 SOB (shortness of Results f or 3:39 PM ACUTE COORDINATOR breath) this procedure are in the results section. PROTHROMBIN TIME / STAT 05/02/2019 SOB (shortness of Resu lts for INR 3:29 PM ACUTE COORDINATOR breath) this procedure are in the results section. LIPID PANEL Add-on 05/02/2019 Results for (37929)(TOTAL 3:27 PM ACUTE COORDINATOR this procedure CHOLESTEROL, are in the TRIGLYCERIDES, HDL) results section. THYROID STIMULATING Add-on 05/02/2019 Results for HORMONE 3:27 PM ACUTE COORDINATOR this procedure are in the results section. GLYCOSYLATED Add-on 05/02/2019 Results for HEMOGLOBIN (A1C) 3:27 PM ACUTE COORDINATOR this proced ure are in the results section. CBC WITH DIFFERENTIAL STAT 05/02/2019 SOB (shortness of R esults for 3:27 PM ACUTE COORDINATOR breath) this procedure are in the results section. N-TERMINAL PRO-BNP STAT 05/02/2019 SOB (shortness of Resu lts for 3:27 PM ACUTE COORDINATOR breath) this procedure are in the results section. TROPONIN I STAT 05/02/2019 SOB (shortness of Results fo r 3:27 PM ACUTE COORDINATOR breath) this procedure are in the results section. HEPATIC FUNCTION STAT 05/02/2019 SOB (shortness of Result s for PANEL (55537) 3:27 PM ACUTE COORDINATOR breath) this procedure (ALB,T.PRO,BILI are in the T,BU/BC,ALT,AST,ALK results PHOS) section. BASIC METABOLIC PANEL STAT 05/02/2019 SOB (shortness of R esults for (NA, K, CL, CO2, 3:27 PM ACUTE COORDINATOR breath) this proced ure GLUCOSE, BUN, are in the CREATININE, CA) results section. CBC WITH DIFFERENTIAL Routine 05/02/2019 SOB (shortness of R esults for 3:27 PM ACUTE COORDINATOR breath) this procedure are in the results section. EKG-12 LEAD Routine 05/02/2019 3:26 PM ACUTE COORDINATOR EKG-12 LEAD STAT 05/02/2019 3:22 PM ACUTE COORDINATOR CONSENT/REFUSAL FOR Routine 05/02/2019 DIAGNOSIS AND 3:16 PM ACUTE COORDINATOR TREATMENT PATIENT AGREEMENTS Routine 05/02/2019 AND CONTRACTS 12:01 AM ACUTE COORDINATOR HOSPITAL ADMISSION Routine 05/02/2019 12:01 AM ACUTE COORDINATOR HOSPITAL ADM - MISC Routine 05/02/2019 12:01 AM ACUTE COORDINATOR FL TIME OR Routine 04/26/2019 Pain Results for (NON-REPORTABLE) 8:28 AM ACUTE COORDINATOR this proced ure are in the results section. LUMBAR EPIDURAL Level 5 04/26/2019 Back pain STEROID INJECTION (greater than 8:00 AM ACUTE COORDINATOR 5 days) POCT GLUCOSE Routine 04/26/2019 Results for (AUTOMATED) 6:46 AM ACUTE COORDINATOR this procedure are in the results section. POCT GLUCOSE(AGE Routine 04/26/2019 Results for >30DAYS) 6:46 AM ACUTE COORDINATOR this procedure are in the results section. DAY SURGERY - ADC Routine 04/26/2019 12:01 AM ACUTE COORDINATOR NM CARDIAC INFARCTION Routine 04/20/2019 Chronic diastolic R esults for SPECT 12:14 PM CDT CHF (congestive this procedu re heart failure) are in the results section. BASIC METABOLIC PANEL Routine 04/20/2019 Hypopotassemia Resu lts for (NA, K, CL, CO2, 12:09 PM CDT this proced ure GLUCOSE, BUN, are in the CREATININE, CA) results section. from Last 3 Months Results BASIC METABOLIC PANEL (NA, K, CL, CO2, GLUCOSE, BUN, CREATININE, CA) (07/13/2019 11:54 AM ACUTE COORDINATOR)Only the most recent of9 resultswithin the time period is included. Pathologist Sig nature NA 137 135 - 145 [facility] mmol/L [facility] K 4.1 3.5 - 5.0 [facility] mmol/L [facility] CL 99 98 - 108 mmol/L [facility] CO2 TOTAL 32 (H) 23 - 31 mmol/L [facility] AGAP 6 2 - 16 [facility] BUN 17 7 - 23 mg/dL [facility] GLUCOSE 154 (H) 70 - 110 mg/dL [facility] CREATININE 1.10 0.60 - 1.25 [facility] mg/dL [facility] CALCIUM 9.4 8.6 - 10.6 [facility] mg/dL [facility] eGFR Calculation 70.9 mL/min/1.73m2 [facility] ([facility] LABORATORY [place]) eGFR Calculation 85.9 mL/min/1.73m2 [facility] () [facility] Specimen Blood Narrative Performed [...] tests). Performing Organization Address City/State/Zipcode Phone Number [facility] CLIA: [id number], [address] [place], [place] [address] MAGNESIUM (07/13/2019 11:54 AM ACUTE COORDINATOR)Only the most recent of2 resultswithin the time period is included. Pathologist Sig nature MAGNESIUM 2.3 1.7 - 2.4 mg/dL [facility] Specimen Blood Performing Organization Address City/[facility] Phone Number [facility] CLIA: [id number], [address] [place] [address] AGREEMENTS AUTHORIZATIONS AND IRREVOCABLE ASSIGNMENTS (FORM 2001) (07/07/2019 12:01 AM ACUTE COORDINATOR) Specimen Performing Organization Address City/[facility] Phone Number [facility] POCT HEMOGLOBIN A1C TEST (07/07/2019) Pathologist Sig nature POCT HBA1C 8.3 (A) 4 - 6 % Specimen Blood - CAPILLARY POCT GLUCOSE (AUTOMATED) (06/23/2019 11:19 AM ACUTE COORDINATOR)Only the most recent of18 resultswithin the time period is included. Pathologist Sig nature POCT GLU 217 (H) 70 - 110 mg/dL [facility] Specimen Blood Performing Organization Address [facility] Phone Number [facility] CLIA: [id number], [address] [place] [address] Urinalysis (06/23/2019 9:42 AM ACUTE COORDINATOR) Pathologist Sig nature APPEARANCE Clear Clear [facility] COLOR Yellow Yellow [facility] PH 7.0 4.8 - 8.0 [facility] SP GRAVITY 1.006 1.003 - 1.030 [facility] GLU U QUAL 500 mg/dL (A) Normal [facility] BLOOD Negative Negative [facility] KETONES Negative Negative [facility] PROTEIN Negative Negative [facility] UROBILIN Normal Normal [facility] BILIRUBIN Negative Negative [facility] NITRITE Negative Negative [facility] LEUK TRE Negative Negative [facility] RBC/HPF <1 0 - 3 HPF [facility] WBC/HPF <1 0 - 5 HPF [facility] BACTERIA Negative Negative [facility] SQ EPITH <1 HPF [facility] HYAL CAST 5 (H) <=2 LPF [facility] Specimen Urine - URINE, CLEAN CATCH Performing Organization Address City/State/Zipcode Phone Number [facility] CLIA: [id number], [address] [place], [place] [address] CBC WITH DIFFERENTIAL (06/23/2019 9:16 AM ACUTE COORDINATOR)Only the most recent of4 results within the time period is included. Pathologist Sig nature WBC 12.18 (H) 4.20 - 10.70 [facility] 10*3/L [facility] RBC 5.49 4.26 - 5.52 [facility] 10*6/L [facility] HGB 14.2 12.2 - 16.4 [facility] g/dL [facility] HCT 41.8 38.4 - 49.3 % [facility] MCV 76.1 (L) 81.7 - 95.6 fL [facility] MCH 25.9 (L) 26.1 - 32.7 pg [facility] MCHC 34.0 31.2 - 35.0 [facility] g/dL [facility] RDW-SD 46.0 38.5 - 51.6 fL [facility] RDW-CV 17.2 (H) 12.1 - 15.4 % [facility] PLT 349 (H) 150 - 328 [facility] 10*3/L [facility] MPV 9.7 (L) 9.8 - 13.0 fL [facility] NRBC/100 WBC 0.0 0.0 - 10.0 /100 [facility] WBCs [facility] NRBC x10^3 <0.01 10*3/L [facility] GRAN MAT (NEUT) % 78.0 % [facility] IMM GRAN % 0.50 % [facility] LYMPH % 14.4 % [facility] MONO % 6.0 % [facility] EOS % 0.7 % [facility] BASO % 0.4 % [facility] GRAN MAT x10^3(ANC) 9.50 (H) 1.99 - 6.95 [facility] 10*3/uL HOSPITAL LAB[facility]ORY IMM GRAN x10^3 0.06 0.00 - 0.06 [facility] 10*3/uL HOSPITAL [facility]ORY LYMPH x10^3 1.76 1.09 - 3.23 [facility] 10*3/uL HOSPITAL LAB[facility]ORY MONO x10^3 0.73 0.36 - 1.02 [facility] 10*3/uL HOSPITAL LAB[facility]ORY EOS x10^3 0.08 0.06 - 0.53 [facility] 10*3/uL [facility] BASO x10^3 0.05 0.01 - 0.09 [facility] 10*3/uL [facility] Specimen Blood - ARM, RIGHT Performing Organization Address City/State/Zipcode Phone Number [facility] CLIA: [id number], [address] [place] [address] Troponin I (06/23/2019 9:16 AM ACUTE COORDINATOR)Only the most recent of7 resultswithin the time period is included. Pathologist Sig nature TROPONIN I 0.004 <=0.034 ng/mL [facility] Specimen [...] City/State/Zipcode Phone Number [facility] CLIA: [id number], [address] [place] [address] NOTICE OF PRIVACY PRACTICES (06/23/2019 9:00 AM ACUTE COORDINATOR)Only the most recent of2 resultswithin the time period is included. Specimen Performing Organization Address City/State/Zipcode Phone Number HIM CONSENT/REFUSAL FOR DIAGNOSIS AND TREATMENT (06/23/2019 9:00 AM ACUTE COORDINATOR)Only the most recent of3 resultswithin the time period is included. Specimen Performing Organization Address City/[facility]ode Phone Number [facility] EMERGENCY SERVICES AGREEMENTS AND AUTHORIZATIONS (06/23/2019 12:01 AM ACUTE COORDINATOR) Specimen Performing Organization Address City/State/Zipcode Phone Number [facility] POCT PT/INR(COAGUCHEK) (06/14/2019)Only the most recent of4 resultswithin the time period is included. Pathologist Sig nature POCT PT/INR 2.5 (A) 0.8 - 1.4 INR POCT PT/SEC 30.1 SEC Specimen Blood - CAPILLARY N-TERMINAL PRO-BNP (06/05/2019 9:39 AM ACUTE COORDINATOR)Only the most recent of4 results within the time period is included. Pathologist Sig nature NT-proBNP 52 <=125 pg/mL [facility] Specimen Blood - ARM, LEFT Narrative Performed At Biotin has been reported to cause a negative [facility] bias, interpret results relative to patient's use of biotin. Performing Organization Address [facility] Phone Number [facility] CLIA: [id number], [address] [place] [address] URIC ACID (06/05/2019 9:39 AM ACUTE COORDINATOR) Pathologist Sig nature URIC ACID 6.2 3.6 - 8.0 mg/dL [facility] Specimen Blood - ARM, LEFT Performing Organization Address [facility] Phone Number [facility] CLIA: [id number], [address] [place] [address] PHOSPHORUS (06/05/2019 9:39 AM ACUTE COORDINATOR) Pathologist Sig nature PHOSPHORUS 3.1 2.5 - 5.0 mg/dL [facility] Specimen Blood - ARM, LEFT Performing Organization Address [facility] Phone Number [facility] CLIA: [id number], [address] [place] [address] PROTHROMBIN TIME / INR (06/05/2019 3:30 AM ACUTE COORDINATOR)Only the most recent of7 results within the time period is included. PROTIME PATIENT 13.6 12.0 - 14.7 [facility] LABORATORY INR 1.1Comment: Normal [facility] INR <1.1; [facility] Therapeutic range LABORATORY 2.0 to 3.0 or 2.5 to 3.5, depending upon the indications. Specimen Blood - ARM, LEFT Performing Organization Address City/State/Zipcode Phone Number [facility] CLIA: [id number], [address] [place], [place] [address] THORAX W CONTRAST (06/04/2019 7:40 PM ACUTE COORDINATOR) Specimen Impressions Performed At Mild mediastinal lymphadenopathy may be reactive. PACS/VR/DOSE 2. No infiltrates or effusions or edema. 3. No pericardial effusion. RL: [id number] Narrative Performed At Ordering Physician: AREN NIXON [...] There is no adrenal mass. Procedure Note [facility], Radiant Results Inft User - 2018 7:52 PM ACUTE COORDINATOR Ordering Physician: AREN NIXON III Clinical Indication: [...] Number PACS/VR/DOSE EKG-12 LEAD (06/04/2019 7:18 PM ACUTE COORDINATOR) Specimen Performing Organization Address City/State/Zipcode Phone Number HST aPTT (06/04/2019 7:13 PM ACUTE COORDINATOR) Pathologist Sig nature APTT Patient 42 (H) 23 - 38 Seconds [facility] Specimen Blood - VENOUS Narrative Performed At The [facility] patient population mean normal value [facility] for aPTT is 30 seconds. Performing Organization Address City/[facility]/Zipcode Phone Number [facility] CLIA: [id number], [address] [place], [place] [address] COMP. METABOLIC PANEL ([id number]) (06/04/2019 7:13 PM ACUTE COORDINATOR) Pathologist Sig nature NA 135 135 - 145 [facility] mmol/L [facility] K 4.4 3.5 - 5.0 [facility] mmol/L [facility] CL 98 98 - 108 mmol/L [facility] CO2 TOTAL 29 23 - 31 mmol/L [facility] AGAP 8 2 - 16 [facility] BUN 17 7 - 23 mg/dL [facility] GLUCOSE 181 (H) 70 - 110 mg/dL [facility] CREATININE 1.20 0.60 - 1.25 [facility] mg/dL [facility] TOTAL BILI 0.5 0.1 - 1.1 mg/dL [facility] CALCIUM 9.6 8.6 - 10.6 [facility] mg/dL [facility] T PROTEIN 8.2 6.3 - 8.2 g/dL [facility] ALBUMIN 4.1 3.5 - 5.0 g/dL [facility] ALK PHOS 118 34 - 122 U/L [facility] ALTv 38 5 - 50 U/L [facility] AST(SGOT) 33 13 - 40 U/L [facility] eGFR Calculation 64.1 mL/min/1.73m2 [facility] ([facility] LABORATORY [place]) eGFR Calculation 77.7 mL/min/1.73m2 [facility] ([facility] LABORATORY Specimen Blood - VENOUS Narrative Performed [...] City/State/Zipcode Phone Number [facility] CLIA: [id number], [address] [place], [place] [address] [facility] HOSPITAL ADMISSION (06/04/2019 12:01 AM ACUTE COORDINATOR)Only the most recent of2 results within the time period is included. Specimen Performing Organization Address City/State/Zipcode Phone Number HIM SURGICAL PATHOLOGY EXAM (06/03/2019 4:20 PM ACUTE COORDINATOR) Case Report Surgical Pathology Case: [id number] [facility] Authorizing Provider: Davy Ivy MD Collected: 06/03/2019 1620 SERVICES Ordering Location: [facility] Received: 06/03/2019 1831 Cardiac Catheterization Lab Pathologist: Roxann Colin MD PHD Specimen: MYOCARDIUM, R egular Final Diagnosis [facility] Martha Spann [facility], ENDOMYOCARDIAL BIOPSIES: SERVICES signed by - MYOCARDIUM WITH NO PATHOLOGIC CHANGES. Cristi, - [place] RED (FOR AMYLOID) AND IRON SPECIAL STAINS ARE NEGATIVE. MD Roxann PHD on - MINIMAL INTERSTITIAL FIBROSIS BY TRICHROME STARosa Maria N. 06/07/2019 at 1:17 PM I have personally reviewed a ll specimens/slides and agree with all statements made by residents, fellows or pathologist assistants whose name(s) may appear on this report. Clinical [facility] Information Please evaluate for Amyloidosis/hemochromatosis, thank s. SERVICES Gross Description Specimen A is received in a single container, the formalin container is labeled with the patient's name, [facility] number, "myocardium regular" and consists of 3 cheng-brown tissue fragments (0.3 x 0.1 x 0.1 cm [facility] in aggregate) which are filt ered through a biopsy bag and submitted in toto in A1. A Manish's trichrome stain is requested on block A1. SER YULISA Bianchi ([facility])cm Embedded Images [facility] SERVICES Specimen Tissue - MYOCARDIUM Performing Organization Address City/State/Zipcode Phone Number [facility] SERVICES CLIA: [id number], [address] [place], [place] [address] [facility] CORONARY ANGIOGRAPHY (06/03/2019 2:33 PM ACUTE COORDINATOR) Specimen Performing Organization Address City/State/Zipcode Phone Number CATH OUTPATIENT CARDIAC CATHETERIZATION DOCUMENTS (06/03/2019 12:01 AM ACUTE COORDINATOR) Specimen Performing Organization Address City/[facility]/Zipcode Phone Number HIM CBC W/O DIFF (05/27/2019 12:37 PM ACUTE COORDINATOR) Pathologist Sig nature WBC 13.69 (H) 4.20 - 10.70 [facility] 10*3/L HOSPITAL LABORATORY RBC 5.27 4.26 - 5.52 [facility] 10*6/L [facility] HGB 13.0 12.2 - 16.4 g/dL [facility] HCT 41.4 38.4 - 49.3 % [facility] MCH 24.7 (L) 26.1 - 32.7 pg [facility] MCV 78.6 (L) 81.7 - 95.6 fL [facility] MCHC 31.4 31.2 - 35.0 g/dL [facility] PLT 298 150 - 328 10*3/L [facility] MPV 9.6 (L) 9.8 - 13.0 fL [facility] RDW-CV 17.3 (H) 12.1 - 15.4 % [facility] RDW-SD 48.1 38.5 - 51.6 fL [facility] NRBC x10^3 <0.01 10*3/L [facility] NRBC/100 WBC 0.0 0.0 - 10.0 /100 [facility] LABORATORY IPF % [facility] Specimen Blood - ARM, LEFT Performing Organization Address City/State/Zipcode Phone Number [facility] CLIA: [id number], [address] [place], [place] [address] PACEMAKER DEVICE CHECK (05/27/2019 10:47 AM ACUTE COORDINATOR) Specimen Performing Organization Address City/State/Zipcode Phone Number EP TRANSFERRIN (05/25/2019 3:17 PM ACUTE COORDINATOR) Pathologist Sig nature TRANSFERRN 205 168 - 336 mg/dL [facility] SERVICES Specimen Blood - ARM, LEFT Performing Organization Address City/State/Zipcode Phone Number [facility] SERVICES CLIA: [id number], [address] [place], [place] [address] FERRITIN SERUM (05/25/2019 3:17 PM ACUTE COORDINATOR) Pathologist Sig nature FERRITIN 94.4 18.0 - 464.0 ng/mL [facility] Specimen Blood - ARM, LEFT Narrative Performed At Biotin has been reported to cause a [facility] negative bias, interpret results relative to patient's use of biotin. Performing Organization Address City/State/Zipcode Phone Number [facility] CLIA: [id number], [address] [place] [address] [facility] [address] IMMTRAC2 CONSENT (05/13/2019 12:01 AM ACUTE COORDINATOR) Specimen Performing Organization Address City/State/Zipcode Phone Number HIM ECHO ROUTINE W/DOPPLER COLOR (05/03/2019 11:25 AM ACUTE COORDINATOR) Specimen Performing Organization Address City/State/Zipcode Phone Number ECHO Chest 1 View (05/02/2019 3:39 PM ACUTE COORDINATOR) Specimen Impressions Performed At PACS/VR/DOSE No acute [...] Note [facility], Radiant Results Inft User - 2018 4:49 PM ACUTE COORDINATOR EXAM: XR CHEST 1 VW HISTORY: sob [...] with the above report. Performing Organization Address [facility] Phone Number PACS/VR/DOSE Glycosylated Hemoglobin (A1C) (05/02/2019 3:27 PM ACUTE COORDINATOR) Pathologist Sig nature HGB A1C 8.6 (H) 4.0 - 6.0 % [facility] Specimen Blood - VENOUS Narrative Performed At %A1C (NGSP) Interpretation (ADA) [facility] 4.8-5.6 Normal or (Non-Diabetic Ra nge) 5.7-6.4 Increased Risk (Pre-Diabet ic) >6.5 Diabetes Indicated Performing Organization Address [facility] Phone Number [facility] CLIA: [id number], [address] [place], [place] [address] LIPID PANEL ([id number])(TOTAL CHOLESTEROL, TRIGLYCERIDES, HDL) (05/02/2019 3:27 PM ACUTE COORDINATOR) Pathologist Sig nature CHOL 204 (H) 120 [...] Specimen Blood - VENOUS Performing Organization Address [facility] Phone Number [facility] CLIA: [id number], [address] [place] [address] Hepatic Function Panel (ALB, T.PRO, BILI T, BU/BC, ALT, AST, ALK PHOS) (05/02/2019 3:27 PM ACUTE COORDINATOR) Pathologist Sig nature TOTAL BILI 0.5 0.1 [...] Specimen Blood - VENOUS Performing Organization Address [facility] Phone Number [facility] CLIA: [id number], [address] [place] [address] THYROID STIMULATING HORMONE (05/02/2019 3:27 PM ACUTE COORDINATOR) Pathologist [facility] TSH 2.69Comment: Biotin 0.45 - 4.70 [facility] has been reported mIU/L HOSPITAL LABORATORY to cause a negative bias, interpret results relative to patient's use of biotin. Specimen Blood - VENOUS Performing Organization Address [facility]/Zipcode Phone Number [facility] CLIA: [id number], [address] [place] [address] EKG-12 LEAD (05/02/2019 3:26 PM ACUTE COORDINATOR) Specimen Performing Organization Address City/State/Zipcode Phone Number HST PATIENT AGREEMENTS AND CONTRACTS (05/02/2019 12:01 AM ACUTE COORDINATOR) Specimen Performing Organization Address City/State/Zipcode Phone Number [facility] ADM - MISC (05/02/2019 12:01 AM ACUTE COORDINATOR) Specimen Performing Organization Address City/State/Zipcode Phone Number [facility] FL TIME OR (NON-REPORTABLE) (04/26/2019 8:28 AM ACUTE COORDINATOR) Specimen Narrative Performed At These images do not require a Radiology diagnostic rep ort. PACS Performing Organization Address City/State/Zipcode Phone Number PACS POCT Glucose (04/26/2019 6:46 AM ACUTE COORDINATOR) Pathologist Sig nature POCT Glu (age>30days) 150 (A) 70 - 110 mg/dL Specimen Blood - CAPILLARY DAY SURGERY - ADC (04/26/2019 12:01 AM ACUTE COORDINATOR) Specimen Performing Organization Address City/State/Zipcode Phone Number HIM NM CARDIAC INFARCTION SPECT (04/20/2019 12:14 PM CDT) Specimen Impressions Performed At PACS/VR/DOSE Findings not suggestive of TTR amyloidos is. Jhony Crane MD., have reviewed this study and [...] in bones and kid neys. Procedure Note [facility], Radiant Results Inft User - 2018 2:42 [...] Findings not suggestive of TTR amyloidos is. I, Jhony Bowers MD., have reviewed th is study and agree with the above report. Performing Organization Address City/State/Zipcode Phone Number PACS/VR/DOSE from Last 3 Months Insurance Payer Benefit Plan / Subscriber ID Effective Phone Address T ype Group Dates [employer] [id number] 2017-Lux [phone] [address] [employer] [facility] [employer] [phone] [place] [address] Advance Directives Name Relationship Healthcare Agent Communication Relationship Keaton Nelson Spouse Primary healthcare agent [phone] (Work) Elisabeth Soliz Sibling [facility] [phone] agent (Mobile)
--- OUTSIDE RECORDS SUMMARY | 2019-11-07 21:34 | XMS REPORT | Clinical Summary ---
:1970 Author Organization [facility] - 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 Insulin [place], Use as directed, 1x 100 Each 1 [...] Added automatically from request for lillian lawson [id number] Syncope 04/01/2017 Chest pain, rule out acute [...] Chest pain 06/12/2016 Coronary artery disease involving [place] coronary briseyda ry of [place] heart 06/12/2016 with angina pectoris MT (myocardial infarction) 06/12/2016 [...] Medication D ose MD Namita Change 07/13/2019 Utility Sales And Service Manager Visit Phlebotomy Robert Adkins Chronic diastolic CHF (congestive heart failure); MD Namita Hypopotassemia 2, Adc Lab 07/13/2019 Office Visit Cardiology Al Valiente DOE (dyspnea on exertion) (Primary Dx); Chronic heart f ailure with preserved ejection fraction; Coronary artery disease involving [place] coronary artery of [place] heart without angina pectoris; Essential hyper tension; Pacemaker 07/07/2019 Office Visit Endocrinology Diabetes Zhen Jones MD T ype 2 diabetes mellitus with cardiac complication (Primary Dx); & Metabolism Secondary male hypogonadism; Dyslipidemia; Essential hyper tension; High serum marysol sterone 07/07/2019 Utility Sales And Service Manager Visit Phlebotomy Robert Adkins Hypopota ssemia MD Namita 2, Adc Lab 07/07/2019 Orders Only Doctor Unassigned, [place] 07/06/2019 Office Visit Internal Medicine Lupe, Vitamin B1 2 deficiency (Primary Dx); Lilibeth Payne MD Fluid retent ion; Left foot pain; Dry skin; Type 2 diabetes mellitus without complication, with long-term current use of insulin 07/05/2019 Telephone Cardiology Robert Akdins Results MD Namita 06/25/2019 Telephone Endocrinology Diabetes Zhen Jones MD A ssessment (Triage ) & Metabolism 06/23/2019 Emergency Emergency Medicine Amisha Toth Hyper glycemia J, DO (Primary Dx) 06/23/2019 Orders Only Doctor Unassigned, [place] 06/14/2019 Nurse Visit Anti-coagulation Clinic Nat Anti coagulation management encounter; Har[place] Other pulmonary embolism without acute cor pulmonale, unspecified chronicity MD Fei Nurse, [facility] Anticoag 06/11/2019 Office Visit Dermatology Summer eKnney Folliculitis (Primary Dx); MD Rosa Xerosis cutis; Kaitlin Dent Other seborrhe ic keratosis MD Melodie 06/09/2019 Telephone Family Medicine Lupe, Assessment ( Chest Lilibeth Payne MD congestion) 06/07/2019 Nurse Visit Anti-coagulation Clinic Joe Johns r pulmonary embolism without acute cor pulmonale, unspecified chronicity; [place] Anticoagulation management encounter MD Fei Nurse, [facility] Anticoag 06/07/2019 Refill Internal Medicine Lupe, Refill Req uest Lilibeth Payne MD 06/04/2019 Emergency Medicine - Inpatient Aren Nixon SOB (shortness of - only III, PA breath) 06/05/2019 Adal Moran MD 06/03/2019 Hospital Cardiac Pediatric Psychiatrist Robert Adkins Chronic diastolic congestive heart failure [...] Seborrheic derm atitis; Rash; Hair changes 05/27/2019 Utility Sales And Service Manager Visit Clinical Medical Robert Adkins Cheyumiko t pain, Laboratory MD Namita unspecified type 1, Adc Lab 05/27/2019 [facility] Cardiac Carayannopoulos, PAF (paroxy smal atrial fibrillation) (Primary Dx); Encounter Electrophysiology MD Ho Bradycardia; Outpt-Simi, Pacemaker repro gramming/check Pacemaker/Icd 05/27/2019 Telephone Cardiac Pediatric Psychiatrist Robert Adkins Pre-Visi t Planning MD Namita 05/26/2019 Telephone Pulmonary Disease STAN Aguiar MD 05/26/2019 Telephone Cardiology Robert Adkins Notification MD Namita 05/26/2019 Telephone Cardiac Pediatric Psychiatrist Robert Adkins Appointmomo ent MD Namita (RHC/BX/EXERCIS E HEMODYNAMIC) 05/25/2019 Utility Sales And Service Manager Visit Phlebotomy Robert Adkins Chronic diastolic MD [...] Memory problem 05/13/2019 Orders Only Doctor Unassigned, [place] 05/10/2019 Telephone Cardiology Robert Adkins Assessment MD [...] 04/26/2019 Anesthesia Event Surgery Glasgow, Genaro R, SERVICING MANAGER Evan Allred III, SERVICING MANAGER 04/26/2019 Hospital Surgery Dagoberto Luna Encounter MD Yumiko 04/26/2019 Orders Only Doctor Unassigned, [place] 04/21/2019 Telephone Cardiology Robert Adkins Lab Results; Orders MD Namita 04/20/2019 Utility Sales And Service Manager Visit Phlebotomy Cale Silverman Hypopotassemia Vls-Lab 04/20/2019 [facility] Radiology Robert Adkins Encounter MD Namita 04/20/2019 [facility] Radiology Robert Adkins Encounter MD Namita 04/16/2019 [...] Comments Blood Pressure 102/70 07/15/2019 2:04 PM ENTRY ANALYST Pulse 83 07/15/2019 2:04 PM ENTRY ANALYST Temperature 36.7 C (98 F) 07/06/2019 1:18 PM ENTRY ANALYST Respiratory Rate 18 07/15/2019 2:04 PM ENTRY ANALYST Oxygen Saturation 99% 07/13/2019 10:58 AM ENTRY ANALYST Inhaled Oxygen Concentration - - Weight 132.9 kg (293 lb) 07/15/2019 2:04 PM ENTRY ANALYST Height 177.8 cm (5' 10") 07/13/2019 10:58 AM ENTRY ANALYST Body Mass Index 42.04 07/13/2019 10:58 AM ENTRY ANALYST Plan of Treatment Date Type Specialty Care Team Description 07/16/2019 Nurse Visit Anti-coagulation Clinic Nurse, Vtc Antico ag 07/22/2019 Office Visit Dermatology Kaitlin Dent MD [address] [place] [phone] 08/17/2019 Office Visit Internal Medicine Lilibeth Andrade MD [address] [address] [phone] 09/09/2019 Office Visit Internal Medicine Lilibeth Andrade MD [address] [address] 09/28/2019 Office Visit Cardiology Robert Adkins MD 301 [facility] [address] [place], [place] [address] 10/12/2019 Office Visit Internal Medicine Lilibeth Andrade MD [address] [address] [phone] 10/19/2019 Office Visit Endocrinology Diabetes & JonesTre MD Metabolism [address] [place] [address] [phone] 10/27/2019 Office Visit Pulmonary Disease Max Aguiar MD [address] [facility] [address] [place], [place] [address] [phone] 11/02/2019 Office Visit Internal Medicine Lilibeth Andrade MD [address] [facility] [address] [place], [place] [address] [phone] 12/02/2019 Appointment Cardiac Electrophysiology Outpt-Siim, Pacemaker/Icd 12/08/2019 Office Visit Ophthalmology Yariel Tineo MD [address] [place] [address] Health Maintenance Due Date Last [...] 1980 (Not Indicated) Implants Implanted Type Area Cloth Shearing Supervisor Device Shelf Model / Identifier Expiration Serial / Date Lot Prolene Mesh MESH Right: Ethicon 12/20/2020 PMSK / Implanted: Qty: 1 on 07/04/2016 by Alfonso Martinez MD at [facility] [employer] [id number] / [id number] Pacemaker PACEMAKER Stent-06/24/2016 Implanted: 06/24/2016 (Quantity not on file) Procedures Procedure Name Priority Date/Time Associated Diagnosis Comme nts BASIC METABOLIC PANEL Routine 07/13/2019 Hypopotass emia Results for (NA, K, CL, CO2, 11:54 AM ENTRY ANALYST Chronic diastolic this p rocedure GLUCOSE, BUN, CHF (congestive are in the CREATININE, CA) heart failure) results section. MAGNESIUM Routine 07/13/2019 Chronic diastolic Results fo r 11:54 AM ENTRY ANALYST CHF (congestive this procedu re heart failure) are in the results section. BASIC METABOLIC PANEL Routine 07/07/2019 Hypopotassemia Resu lts for (NA, K, CL, CO2, 8:16 AM ENTRY ANALYST this proced ure GLUCOSE, BUN, are in the CREATININE, CA) results section. AGREEMENTS Routine 07/07/2019 AUTHORIZATIONS AND 12:01 AM ENTRY ANALYST IRREVOCABLE ASSIGNMENTS (FORM 2000) POCT HEMOGLOBIN A1C Routine 07/07/2019 Type 2 diabetes Resul ts for TEST mellitus with this procedure cardiac complication are in the results section. POCT GLUCOSE Routine 06/23/2019 Results for (AUTOMATED) 11:19 AM ENTRY ANALYST this procedure are in the results section. POCT GLUCOSE Routine 06/23/2019 Results for (AUTOMATED) 10:39 AM ENTRY ANALYST this procedure are in the results section. POCT GLUCOSE Routine 06/23/2019 Results for (AUTOMATED) 9:52 AM ENTRY ANALYST this procedure are in the results section. URINALYSIS STAT 06/23/2019 Hyperglycemia Results for 9:42 AM ENTRY ANALYST this procedure are in the results section. CBC WITH DIFFERENTIAL STAT 06/23/2019 Hyperglycemia Resul ts for 9:16 AM ENTRY ANALYST this procedure are in the results section. TROPONIN I STAT 06/23/2019 Hyperglycemia Results for 9:16 AM ENTRY ANALYST this procedure are in the results section. BASIC METABOLIC PANEL STAT 06/23/2019 Hyperglycemia Resul ts for (NA, K, CL, CO2, 9:16 AM ENTRY ANALYST this proced ure GLUCOSE, BUN, are in the CREATININE, CA) results section. CBC WITH DIFFERENTIAL Routine 06/23/2019 Hyperglycemia Resul ts for 9:16 AM ENTRY ANALYST this procedure are in the results section. POCT GLUCOSE Routine 06/23/2019 Results for (AUTOMATED) 9:10 AM ENTRY ANALYST this procedure are in the results section. NOTICE OF PRIVACY Routine 06/23/2019 PRACTICES 9:00 AM ENTRY ANALYST CONSENT/REFUSAL FOR Routine 06/23/2019 DIAGNOSIS AND 9:00 AM ENTRY ANALYST TREATMENT EMERGENCY SERVICES Routine 06/23/2019 AGREEMENTS AND 12:01 AM ENTRY ANALYST AUTHORIZATIONS POCT Routine 06/14/2019 Other pulmonary Results for PT/INR(COAGUCHEK) embolism without this p rocedure acute cor pulmonale, are in the unspecified results chronicity section. POCT Routine 06/07/2019 Other pulmonary Results for PT/INR(COAG[place]HEK) embolism without this p rocedure acute cor pulmonale, are in the unspecified results chronicity section. POCT GLUCOSE Routine 06/05/2019 Results for (AUTOMATED) 11:26 AM ENTRY ANALYST this procedure are in the results section. PHOSPHORUS Routine 06/05/2019 Results for 9:39 AM ENTRY ANALYST this procedure are in the results section. MAGNESIUM Routine 06/05/2019 Results for 9:39 AM ENTRY ANALYST this procedure are in the results section. N-TERMINAL PRO-BNP Routine 06/05/2019 Results f or 9:39 AM ENTRY ANALYST this procedure are in the results section. BASIC METABOLIC PANEL Routine 06/05/2019 Result s for (NA, K, CL, CO2, 9:39 AM ENTRY ANALYST this proced ure GLUCOSE, BUN, are in the CREATININE, CA) results section. TROPONIN I Routine 06/05/2019 Results for 9:39 AM ENTRY ANALYST this procedure are in the results section. URIC ACID LIVIA 06/05/2019 Results for 9:39 AM ENTRY ANALYST this procedure are in the results section. POCT GLUCOSE Routine 06/05/2019 Results for (AUTOMATED) 7:58 AM ENTRY ANALYST this procedure are in the results section. CBC WITH DIFFERENTIAL Routine 06/05/2019 Result s for 3:30 AM ENTRY ANALYST this procedure are in the results section. PROTHROMBIN TIME / Routine 06/05/2019 Results f or INR 3:30 AM ENTRY ANALYST this procedure are in the results section. CBC WITH DIFFERENTIAL Routine 06/05/2019 Result s for 3:30 AM ENTRY ANALYST this procedure are in the results section. POCT GLUCOSE Routine 06/04/2019 Results for (AUTOMATED) 11:31 PM ENTRY ANALYST this procedure are in the results section. CT THORAX W CONTRAST Routine 06/04/2019 SOB (shortness of Re sults for 7:40 PM ENTRY ANALYST breath) this procedure are in the results section. EKG-12 LEAD Routine 06/04/2019 7:18 PM ENTRY ANALYST CBC WITH DIFFERENTIAL STAT 06/04/2019 SOB (shortness of R esults for 7:13 PM ENTRY ANALYST breath) this procedure are in the results section. ACTIVATED PARTIAL STAT 06/04/2019 SOB (shortness of Resul ts for THRMPLAS [place] 7:13 PM ENTRY ANALYST breath) this procedure are in the results section. PROTHROMBIN TIME / STAT 06/04/2019 SOB (shortness of Resu lts for INR 7:13 PM ENTRY ANALYST breath) this procedure are in the results section. TROPONIN I STAT 06/04/2019 SOB (shortness of Results fo r 7:13 PM ENTRY ANALYST breath) this procedure are in the results section. N-TERMINAL PRO-BNP STAT 06/04/2019 SOB (shortness of Resu lts for 7:13 PM ENTRY ANALYST breath) this procedure are in the results section. COMP. METABOLIC PANEL STAT 06/04/2019 SOB (shortness of R esults for (03709) 7:13 PM ENTRY ANALYST breath) this procedure are in the results section. CBC WITH DIFFERENTIAL Routine 06/04/2019 SOB (shortness of R esults for 7:13 PM ENTRY ANALYST breath) this procedure are in the results section. EKG-12 LEAD STAT 06/04/2019 7:05 PM ENTRY ANALYST NOTICE OF PRIVACY Routine 06/04/2019 PRACTICES 6:35 PM ENTRY ANALYST CONSENT/REFUSAL FOR Routine 06/04/2019 DIAGNOSIS AND 6:35 PM ENTRY ANALYST TREATMENT HOSPITAL ADMISSION Routine 06/04/2019 12:01 AM ENTRY ANALYST SURGICAL PATHOLOGY Routine 06/03/2019 Chronic diastolic Resu lts for EXAM 4:20 PM ENTRY ANALYST congestive heart this proced ure failure are in the results section. CORONARY ANGIOGRAPHY Routine 06/03/2019 2:33 PM ENTRY ANALYST POCT GLUCOSE Routine 06/03/2019 Results for (AUTOMATED) 8:35 AM ENTRY ANALYST this procedure are in the results section. OUTPATIENT CARDIAC Routine 06/03/2019 CATHETERIZATION 12:01 AM ENTRY ANALYST DOCUMENTS PROFILE / HEMOGRAM Routine 05/27/2019 Chest pain, Results f or 12:37 PM ENTRY ANALYST unspecified type this proced ure are in the results section. BASIC METABOLIC PANEL Routine 05/27/2019 Chest pain, Result s for (NA, K, CL, CO2, 12:37 PM ENTRY ANALYST unspecified type this pr ocedure GLUCOSE, BUN, are in the CREATININE, CA) results section. PACEMAKER DEVICE Routine 05/27/2019 CHECK 10:47 AM ENTRY ANALYST N-TERMINAL PRO-BNP Routine 05/25/2019 Chronic diastolic Resu lts for 3:17 PM ENTRY ANALYST CHF (congestive this procedu re heart failure) are in the results section. PROTHROMBIN TIME / Routine 05/25/2019 Chronic diastolic Resu lts for INR 3:17 PM ENTRY ANALYST CHF (congestive this procedu re heart failure) are in the results section. TRANSFERRIN Routine 05/25/2019 Chronic diastolic Results fo r 3:17 PM ENTRY ANALYST CHF (congestive this procedu re heart failure) are in the results section. FERRITIN SERUM Routine 05/25/2019 Chronic diastolic Results for 3:17 PM ENTRY ANALYST CHF (congestive this procedu re heart failure) are in the results section. POCT Routine 05/14/2019 Other pulmonary Results for PT/INR(COAGUCHEK) embolism without this p rocedure acute cor pulmonale, are in the unspecified results chronicity section. IMMTRAC2 CONSENT Routine 05/13/2019 12:01 AM ENTRY ANALYST POCT Routine 05/07/2019 Other pulmonary Results for PT/INR([place]AG[place]HEK) embolism without this p rocedure acute cor pulmonale, are in the unspecified results chronicity section. POCT GLUCOSE Routine 05/05/2019 Results for (AUTOMATED) 7:41 AM ENTRY ANALYST this procedure are in the results section. PROTHROMBIN TIME / Routine 05/05/2019 Results f or INR 3:57 AM ENTRY ANALYST this procedure are in the results section. POCT GLUCOSE Routine 05/04/2019 Results for (AUTOMATED) 7:43 PM ENTRY ANALYST this procedure are in the results section. POCT GLUCOSE Routine 05/04/2019 Results for (AUTOMATED) 11:26 AM ENTRY ANALYST this procedure are in the results section. POCT GLUCOSE Routine 05/04/2019 Results for (AUTOMATED) 7:35 AM ENTRY ANALYST this procedure are in the results section. PROTHROMBIN TIME / Routine 05/04/2019 Results f or INR 2:58 AM ENTRY ANALYST this procedure are in the results section. BASIC METABOLIC PANEL Routine 05/04/2019 Result s for (NA, K, CL, CO2, 2:58 AM ENTRY ANALYST this proced ure GLUCOSE, BUN, are in the CREATININE, CA) results section. POCT GLUCOSE Routine 05/03/2019 Results for (AUTOMATED) 7:41 PM ENTRY ANALYST this procedure are in the results section. POCT GLUCOSE Routine 05/03/2019 Results for (AUTOMATED) 4:27 PM ENTRY ANALYST this procedure are in the results section. POCT GLUCOSE Routine 05/03/2019 Results for (AUTOMATED) 11:27 AM ENTRY ANALYST this procedure are in the results section. ECHO ROUTINE Routine 05/03/2019 SOB (shortness of W/DOPPLER COLOR 11:25 AM ENTRY ANALYST breath) TROPONIN I Routine 05/03/2019 Results for 9:31 AM ENTRY ANALYST this procedure are in the results section. POCT GLUCOSE Routine 05/03/2019 Results for (AUTOMATED) 7:40 AM ENTRY ANALYST this procedure are in the results section. PROTHROMBIN TIME / Routine 05/03/2019 Results f or INR 2:40 AM ENTRY ANALYST this procedure are in the results section. BASIC METABOLIC PANEL Routine 05/03/2019 Result s for (NA, K, CL, CO2, 2:40 AM ENTRY ANALYST this proced ure GLUCOSE, BUN, are in the CREATININE, CA) results section. TROPONIN I Routine 05/03/2019 Results for 2:40 AM ENTRY ANALYST this procedure are in the results section. POCT GLUCOSE Routine 05/02/2019 Results for (AUTOMATED) 8:41 PM ENTRY ANALYST this procedure are in the results section. TROPONIN I Routine 05/02/2019 Results for 8:36 PM ENTRY ANALYST this procedure are in the results section. XR CHEST 1 VW STAT 05/02/2019 SOB (shortness of Results f or 3:39 PM ENTRY ANALYST breath) this procedure are in the results section. PROTHROMBIN TIME / STAT 05/02/2019 SOB (shortness of Resu lts for INR 3:29 PM ENTRY ANALYST breath) this procedure are in the results section. LIPID PANEL Add-on 05/02/2019 Results for ([id number])(TOTAL 3:27 PM ENTRY ANALYST this procedure CHOLESTEROL, are in the TRIGLYCERIDES, HDL) results section. THYROID STIMULATING Add-on 05/02/2019 Results for HORMONE 3:27 PM ENTRY ANALYST this procedure are in the results section. GLYCOSYLATED Add-on 05/02/2019 Results for HEMOGLOBIN (A1C) 3:27 PM ENTRY ANALYST this proced ure are in the results section. CBC WITH DIFFERENTIAL STAT 05/02/2019 SOB (shortness of R esults for 3:27 PM ENTRY ANALYST breath) this procedure are in the results section. N-TERMINAL PRO-BNP STAT 05/02/2019 SOB (shortness of Resu lts for 3:27 PM ENTRY ANALYST breath) this procedure are in the results section. TROPONIN I STAT 05/02/2019 SOB (shortness of Results fo r 3:27 PM ENTRY ANALYST breath) this procedure are in the results section. HEPATIC FUNCTION STAT 05/02/2019 SOB (shortness of Result s for PANEL (57616) 3:27 PM ENTRY ANALYST breath) this procedure (ALB,T.PRO,BILI are in the T,BU/BC,ALT,AST,ALK results PHOS) section. BASIC METABOLIC PANEL STAT 05/02/2019 SOB (shortness of R esults for (NA, K, CL, CO2, 3:27 PM ENTRY ANALYST breath) this proced ure GLUCOSE, BUN, are in the CREATININE, CA) results section. CBC WITH DIFFERENTIAL Routine 05/02/2019 SOB (shortness of R esults for 3:27 PM ENTRY ANALYST breath) this procedure are in the results section. EKG-12 LEAD Routine 05/02/2019 3:26 PM ENTRY ANALYST EKG-12 LEAD STAT 05/02/2019 3:22 PM ENTRY ANALYST CONSENT/REFUSAL FOR Routine 05/02/2019 DIAGNOSIS AND 3:16 PM ENTRY ANALYST TREATMENT PATIENT AGREEMENTS Routine 05/02/2019 AND CONTRACTS 12:01 AM ENTRY ANALYST HOSPITAL ADMISSION Routine 05/02/2019 12:01 AM ENTRY ANALYST HOSPITAL ADM - MISC Routine 05/02/2019 12:01 AM ENTRY ANALYST FL TIME OR Routine 04/26/2019 Pain Results for (NON-REPORTABLE) 8:28 AM ENTRY ANALYST this proced ure are in the results section. LUMBAR EPIDURAL Level 5 04/26/2019 Back pain STEROID INJECTION (greater than 8:00 AM ENTRY ANALYST 5 days) POCT GLUCOSE Routine 04/26/2019 Results for (AUTOMATED) 6:46 AM ENTRY ANALYST this procedure are in the results section. POCT GLUCOSE(AGE Routine 04/26/2019 Results for >30DAYS) 6:46 AM ENTRY ANALYST this procedure are in the results section. DAY SURGERY - ADC Routine 04/26/2019 12:01 AM ENTRY ANALYST NM CARDIAC INFARCTION Routine 04/20/2019 Chronic diastolic [...] GLUCOSE, BUN, CREATININE, CA) (07/13/2019 11:54 AM ENTRY ANALYST)Only the most recent of9 resultswithin the time period is included. Pathologist Sig nature NA 137 135 - 145 [facility] mmol/L [facility] K 4.1 3.5 - 5.0 [facility] mmol/L [facility] CL 99 98 - 108 mmol/L [facility] CO2 TOTAL 32 (H) 23 - 31 mmol/L [facility] AGAP 6 2 - 16 [facility] BUN 17 7 - 23 mg/dL [facility] GLUCOSE 154 (H) 70 - 110 mg/dL [facility] CREATININE 1.10 0.60 - 1.25 [facility] mg/dL [facility] CALCIUM 9.4 8.6 - 10.6 [facility] mg/dL [facility] eGFR Calculation 70.9 mL/min/1.73m2 [facility] (Non-[facility]ORATORY [place]) eGFR Calculation 85.9 mL/min/1.73m2 [facility] () [facility] Specimen Blood Narrative Performed At Association of Glomerular Filtration Rate (GFR) [facility] and Staging of Kidney Disease* [...] City/State/Zipcode Phone Number [facility] CLIA: [id number], [address] [place], [place] [address] MAGNESIUM (07/13/2019 11:54 AM ENTRY ANALYST)Only the most recent of2 resultswithin the time period is included. Pathologist Sig nature MAGNESIUM 2.3 1.7 - 2.4 mg/dL [facility] Specimen Blood Performing Organization Address City/[facility] Phone Number [facility] CLIA: [id number], [address] [place] [address] AGREEMENTS AUTHORIZATIONS AND IRREVOCABLE ASSIGNMENTS (FORM 2001) (07/07/2019 12:01 AM ENTRY ANALYST) Specimen Performing Organization Address City/[facility] Phone Number [facility] POCT HEMOGLOBIN A1C TEST (07/07/2019) Pathologist Sig nature POCT HBA1C 8.3 (A) 4 - 6 % Specimen Blood - CAPILLARY POCT GLUCOSE (AUTOMATED) (06/23/2019 11:19 AM ENTRY ANALYST)Only the most recent of18 resultswithin the time period is included. Pathologist Sig nature POCT GLU 217 (H) 70 - 110 mg/dL [facility] Specimen Blood Performing Organization Address [facility] Phone Number [facility] CLIA: [id number], [address] [place] [address] Urinalysis (06/23/2019 9:42 AM ENTRY ANALYST) Pathologist Sig nature APPEARANCE Clear Clear [facility] COLOR Yellow Yellow [facility] PH 7.0 4.8 - 8.0 [facility] SP GRAVITY 1.006 1.003 - 1.030 [facility] GLU U QUAL 500 mg/dL (A) Normal [facility] BLOOD Negative Negative [facility] KETONES Negative Negative [facility] PROTEIN Negative Negative [facility] UROBILIN Normal Normal [facility] BILIRUBIN Negative Negative [facility] NITRITE Negative Negative [facility] LEUK TRE Negative Negative [facility] RBC/HPF <1 0 - 3 HPF [facility] WBC/HPF <1 0 - 5 HPF [facility] BACTERIA Negative Negative [facility] SQ EPITH <1 HPF [facility] HYAL CAST 5 (H) <=2 LPF [facility] Specimen Urine - URINE, CLEAN CATCH Performing Organization Address City/State/Zipcode Phone Number [facility] CLIA: [id number], [address], [place] [address] CBC WITH DIFFERENTIAL (06/23/2019 9:16 AM ENTRY ANALYST)Only the most recent of4 results within the time period is included. Pathologist Sig nature WBC 12.18 (H) 4.20 - 10.70 [facility] 10*3/L [facility] RBC 5.49 4.26 - 5.52 [facility] 10*6/L [facility] HGB 14.2 12.2 - 16.4 [facility] g/dL [facility] HCT 41.8 38.4 - 49.3 % [facility] MCV 76.1 (L) 81.7 - 95.6 fL [facility] MCH 25.9 (L) 26.1 - 32.7 pg [facility] MCHC 34.0 31.2 - 35.0 [facility] g/dL [facility] RDW-SD 46.0 38.5 - 51.6 fL [facility] RDW-CV 17.2 (H) 12.1 - 15.4 % [facility] PLT 349 (H) 150 - 328 [facility] 10*3/L [facility] MPV 9.7 (L) 9.8 - 13.0 fL [facility] NRBC/100 WBC 0.0 0.0 - 10.0 /100 [facility] WBCs [facility] NRBC x10^3 <0.01 10*3/L [facility] GRAN MAT (NEUT) % 78.0 % [facility] IMM GRAN % 0.50 % [facility] LYMPH % 14.4 % [facility] MONO % 6.0 % [facility] EOS % 0.7 % [facility] BASO % 0.4 % [facility] GRAN MAT x10^3(ANC) 9.50 (H) 1.99 - 6.95 [facility] 10*3/uL HOSPITAL LABORATORY IMM GRAN x10^3 0.06 0.00 - 0.06 [facility] 10*3/uL HOSPITAL LABORATORY LYMPH x10^3 1.76 1.09 - 3.23 [facility] 10*3/uL HOSPITAL LAB[facility]ORY MONO x10^3 0.73 0.36 - 1.02 [facility] 10*3/uL HOSPITAL LABORATORY EOS x10^3 0.08 0.06 - 0.53 [facility] 10*3/uL [facility] BASO x10^3 0.05 0.01 - 0.09 [facility] 10*3/uL [facility] Specimen Blood - ARM, RIGHT Performing Organization Address City/State/Zipcode Phone Number [facility] CLIA: [id number], [address] [place] [address] Troponin I (06/23/2019 9:16 AM ENTRY ANALYST)Only the most recent of7 resultswithin the time period is included. Pathologist Sig nature TROPONIN I 0.004 <=0.034 ng/mL [facility] Specimen Blood - ARM, RIGHT Narrative Performed At Equal or Less than 0.034 ng/ml---Normal [facility] Note: Cardiac troponin begins to [...] biotin. Performing Organization Address City/State/Zipcode Phone Number [facility] CLIA: [id number], [address] [place] [address] NOTICE OF PRIVACY PRACTICES (06/23/2019 9:00 AM ENTRY ANALYST)Only the most recent of2 resultswithin the time period is included. Specimen Performing Organization Address City/State/Zipcode Phone Number HIM CONSENT/REFUSAL FOR DIAGNOSIS AND TREATMENT (06/23/2019 9:00 AM ENTRY ANALYST)Only the most recent of3 resultswithin the time period is included. Specimen Performing Organization Address City/[facility] Phone Number [facility] EMERGENCY SERVICES AGREEMENTS AND AUTHORIZATIONS (06/23/2019 12:01 AM ENTRY ANALYST) Specimen Performing Organization Address City/State/Zipcode Phone Number [facility] POCT PT/INR(COAGUCHEK) (06/14/2019)Only the most recent of4 resultswithin the time period is included. Pathologist Sig nature POCT PT/INR 2.5 (A) 0.8 - 1.4 INR POCT PT/SEC 30.1 SEC Specimen Blood - CAPILLARY N-TERMINAL PRO-BNP (06/05/2019 9:39 AM ENTRY ANALYST)Only the most recent of4 results within the time period is included. Pathologist Sig nature NT-proBNP 52 <=125 pg/mL [facility] Specimen Blood - ARM, LEFT Narrative Performed At Biotin has been reported to cause a negative [facility] bias, interpret results relative to patient's use of biotin. Performing Organization Address [facility] Phone Number [facility] CLIA: [id number], [address] [place] [address] URIC ACID (06/05/2019 9:39 AM ENTRY ANALYST) Pathologist Sig nature URIC ACID 6.2 3.6 - 8.0 mg/dL [facility] Specimen Blood - ARM, LEFT Performing Organization Address [facility] Phone Number [facility] CLIA: [id number], [address] [place] [address] PHOSPHORUS (06/05/2019 9:39 AM ENTRY ANALYST) Pathologist Sig nature PHOSPHORUS 3.1 2.5 - 5.0 mg/dL [facility] Specimen Blood - ARM, LEFT Performing Organization Address [facility] Phone Number [facility] CLIA: [id number], [address] [place] [address] PROTHROMBIN TIME / INR (06/05/2019 3:30 AM ENTRY ANALYST)Only the most recent of7 results within the time period is included. PROTIME PATIENT 13.6 12.0 - 14.7 [facility] LABORATORY INR 1.1Comment: Normal [facility] INR <1.1; [facility] Therapeutic range LABORATORY 2.0 to 3.0 or 2.5 to 3.5, depending upon the indications. Specimen Blood - ARM, LEFT Performing Organization Address City/State/Zipcode Phone Number [facility] CLIA: [id number], [address] [place], [place] [address] THORAX W CONTRAST (06/04/2019 7:40 PM ENTRY ANALYST) Specimen Impressions Performed At Mild mediastinal lymphadenopathy [...] Results Inft User - 2018 7:52 PM ENTRY ANALYST Ordering Physician: AREN NIXON III Clinical Indication: [...] Number PACS/VR/DOSE EKG-12 LEAD (06/04/2019 7:18 PM ENTRY ANALYST) Specimen Performing Organization Address City/State/Zipcode Phone Number HST aPTT (06/04/2019 7:13 PM ENTRY ANALYST) Pathologist Sig nature APTT Patient 42 (H) 23 - 38 Seconds [facility] Specimen Blood - VENOUS Narrative Performed At The [facility] patient population mean normal value [facility] for aPTT is 30 seconds. Performing Organization Address City/[facility]/Zipcode Phone Number [facility] CLIA: [id number], [address] [place], [place] [address] COMP. METABOLIC PANEL ([id number]) (06/04/2019 7:13 PM ENTRY ANALYST) Pathologist Sig nature NA 135 135 - 145 [facility] mmol/L [facility] K 4.4 3.5 - 5.0 [facility] mmol/L [facility] CL 98 98 - 108 mmol/L [facility] CO2 TOTAL 29 23 - 31 mmol/L [facility] AGAP 8 2 - 16 [facility] BUN 17 7 - 23 mg/dL [facility] GLUCOSE 181 (H) 70 - 110 mg/dL [facility] CREATININE 1.20 0.60 - 1.25 [facility] mg/dL [facility] TOTAL BILI 0.5 0.1 - 1.1 mg/dL [facility] CALCIUM 9.6 8.6 - 10.6 [facility] mg/dL [facility] T PROTEIN 8.2 6.3 - 8.2 g/dL [facility] ALBUMIN 4.1 3.5 - 5.0 g/dL [facility] ALK PHOS 118 34 - 122 U/L [facility] ALTv 38 5 - 50 U/L [facility] AST(SGOT) 33 13 - 40 U/L [facility] eGFR Calculation 64.1 mL/min/1.73m2 [facility] (Non-[facility] LABORATORY [place]) eGFR Calculation 77.7 mL/min/1.73m2 [facility] ([facility] LABORATORY Specimen Blood - VENOUS Narrative Performed At Association of Glomerular Filtration Rate (GFR) [facility] LABORATORY and Staging of Kidney Disease* [...] tests). Performing Organization Address City/State/Zipcode Phone Number [facility] CLIA: [id number], [address] [place], [place] [address] [facility] HOSPITAL ADMISSION (06/04/2019 12:01 AM ENTRY ANALYST)Only the most recent of2 results within the time period is included. Specimen Performing Organization Address City/State/Zipcode Phone Number HIM SURGICAL PATHOLOGY EXAM (06/03/2019 4:20 PM ENTRY ANALYST) Case Report Surgical Pathology Case: [id number] [facility] LABORATORY Authorizing Provider: Davy Ivy MD Collected: 06/03/2019 1620 SERVICES Ordering Location: [facility] Received: 06/03/2019 1836 Cardiac Catheterization Lab Pathologist: Roxann Colin MD PHD Specimen: MYOCARDIUM, R egular Final Diagnosis [facility]ORATORY Martha Spann [facility], ENDOMYOCARDIAL BIOPSIES: SERVICES signed by - [...] name(s) may appear on this report. Clinical [facility]OR[facility] Information Please evaluate for Amyloidosis/hemochromatosis, thank s. SERVICES Gross Description Specimen A is received in a single container, the formalin container is labeled with the patient's name, UH number, "myocardium regular" and consists of 3 cheng-brown tissue fragments (0.3 x 0.1 x 0.1 cm [facility] LABORATORY in aggregate) which are filt ered through a biopsy bag and submitted in toto in A1. A Manish's trichrome stain is requested on block A1. SER YULISA Bianchi ([facility])cm Embedded Images [facility] LABORATORY SERVICES Specimen Tissue - MYOCARDIUM Performing Organization Address City/State/Zipcode Phone Number [facility] LABORATORY SERVICES CLIA: [id number], [address] [place], [place] [address] [facility] CORONARY ANGIOGRAPHY (06/03/2019 2:33 PM ENTRY ANALYST) Specimen Performing Organization Address City/State/Zipcode Phone Number CATH OUTPATIENT CARDIAC CATHETERIZATION DOCUMENTS (06/03/2019 12:01 AM ENTRY ANALYST) Specimen Performing Organization Address City/[facility]/Zipcode Phone Number HIM CBC W/O DIFF (05/27/2019 12:37 PM ENTRY ANALYST) Pathologist Sig nature WBC 13.69 (H) 4.20 - 10.70 [facility] 10*3/L HOSPITAL LABORATORY RBC 5.27 4.26 - 5.52 [facility] 10*6/L [facility] HGB 13.0 12.2 - 16.4 g/dL [facility] HCT 41.4 38.4 - 49.3 % [facility] MCH 24.7 (L) 26.1 - 32.7 pg [facility] MCV 78.6 (L) 81.7 - 95.6 fL [facility] MCHC 31.4 31.2 - 35.0 g/dL [facility] PLT 298 150 - 328 10*3/L [facility] MPV 9.6 (L) 9.8 - 13.0 fL [facility] RDW-CV 17.3 (H) 12.1 - 15.4 % [facility] RDW-SD 48.1 38.5 - 51.6 fL [facility] NRBC x10^3 <0.01 10*3/L [facility] NRBC/100 WBC 0.0 0.0 - 10.0 /100 [facility] LABORATORY IPF % [facility] Specimen Blood - ARM, LEFT Performing Organization Address City/State/Zipcode Phone Number [facility] CLIA: [id number], [address] [place], [place] [address] PACEMAKER DEVICE CHECK (05/27/2019 10:47 AM ENTRY ANALYST) Specimen Performing Organization Address City/State/Zipcode Phone Number EP TRANSFERRIN (05/25/2019 3:17 PM ENTRY ANALYST) Pathologist Sig nature TRANSFERRN 205 168 - 336 mg/dL [facility] LABORATORY SERVICES Specimen Blood - ARM, LEFT Performing Organization Address City/State/Zipcode Phone Number [facility] LABORATORY SERVICES CLIA: [id number], [address] [place], [place] [address] FERRITIN SERUM (05/25/2019 3:17 PM ENTRY ANALYST) Pathologist Sig nature FERRITIN 94.4 18.0 - 464.0 ng/mL [facility] LABORATORY SERVICES-[facility] Specimen Blood - ARM, LEFT Narrative Performed At Biotin has been reported to cause a [facility] LABORATORY SE RVICES-[facility] negative bias, interpret results relative to patient's use of biotin. Performing Organization Address City/State/Zipcode Phone Number [facility] CLIA: [id number], [address] [place] [address] [facility] [address] IMMTRAC2 CONSENT (05/13/2019 12:01 AM ENTRY ANALYST) Specimen Performing Organization Address City/State/Zipcode Phone Number HIM ECHO ROUTINE W/DOPPLER COLOR (05/03/2019 11:25 AM ENTRY ANALYST) Specimen Performing Organization Address City/State/Zipcode Phone Number ECHO Chest 1 View (05/02/2019 3:39 PM ENTRY ANALYST) Specimen Impressions Performed At PACS/VR/DOSE No acute [...] Results Inft User - 2018 4:49 PM ENTRY ANALYST EXAM: XR CHEST 1 VW HISTORY: sob [...] with the above report. Performing Organization Address [facility] Phone Number PACS/VR/DOSE Glycosylated Hemoglobin (A1C) (05/02/2019 3:27 PM ENTRY ANALYST) Pathologist Sig nature HGB A1C 8.6 (H) 4.0 - 6.0 % [facility] LABORATORY Specimen Blood - VENOUS Narrative Performed At %A1C (NGSP) Interpretation (ADA) [facility] 4.8-5.6 Normal or (Non-Diabetic Ra nge) 5.7-6.4 Increased Risk (Pre-Diabet ic) >6.5 Diabetes Indicated Performing Organization Address [facility] Phone Number [facility] CLIA: [id number], [address] [place], [place] [address] LIPID PANEL ([id number])(TOTAL CHOLESTEROL, TRIGLYCERIDES, HDL) (05/02/2019 3:27 PM ENTRY ANALYST) Pathologist Sig nature CHOL 204 (H) 120 - 200 mg/dL [facility] HDL 51 >40 mg/dL [facility] HDLC RATIO 4.0 <=5.0 [facility] TRIG 156 30 - 170 mg/dL [facility] LDL CHOL 122 <=160 mg/dL [facility] VLDL 31 5 - 60 mg/dL [facility] Specimen Blood - VENOUS Performing Organization Address [facility] Phone Number [facility] CLIA: [id number], [address] [place] [address] Hepatic Function Panel (ALB, T.PRO, BILI T, BU/BC, ALT, AST, ALK PHOS) (05/02/2019 3:27 PM ENTRY ANALYST) Pathologist Sig nature TOTAL BILI 0.5 0.1 - 1.1 mg/dL [facility] BILI UNCON 0.3 0.1 - 1.1 mg/dL [facility] BILI CONJ 0.0 0.0 - 0.3 mg/dL [facility] T PROTEIN 8.6 (H) 6.3 - 8.2 g/dL [facility] ALBUMIN 4.4 3.5 - 5.0 g/dL [facility] ALK PHOS 145 (H) 34 - 122 U/L [facility] ALTv 33 5 - 50 U/L [facility] AST(SGOT) 29 13 - 40 U/L [facility] Specimen Blood - VENOUS Performing Organization Address [facility] Phone Number [facility] CLIA: [id number], [address] [place] [address] THYROID STIMULATING HORMONE (05/02/2019 3:27 PM ENTRY ANALYST) Pathologist [facility] TSH 2.69Comment: Biotin 0.45 - 4.70 [facility] has been reported mIU/L HOSPITAL LABORATORY to cause a negative bias, interpret results relative to patient's use of biotin. Specimen Blood - VENOUS Performing Organization Address [facility]/Zipcode Phone Number [facility] CLIA: [id number], [address] [place] [address] EKG-12 LEAD (05/02/2019 3:26 PM ENTRY ANALYST) Specimen Performing Organization Address City/State/Zipcode Phone Number HST PATIENT AGREEMENTS AND CONTRACTS (05/02/2019 12:01 AM ENTRY ANALYST) Specimen Performing Organization Address City/State/Zipcode Phone Number [facility] ADM - MISC (05/02/2019 12:01 AM ENTRY ANALYST) Specimen Performing Organization Address City/State/Zipcode Phone Number [facility] FL TIME OR (NON-REPORTABLE) (04/26/2019 8:28 AM ENTRY ANALYST) Specimen Narrative Performed At These images do not require a Radiology diagnostic rep ort. PACS Performing Organization Address City/State/Zipcode Phone Number PACS POCT Glucose (04/26/2019 6:46 AM ENTRY ANALYST) Pathologist Sig nature POCT Glu (age>30days) 150 (A) 70 - 110 mg/dL Specimen Blood - CAPILLARY DAY SURGERY - ADC (04/26/2019 12:01 AM ENTRY ANALYST) Specimen Performing Organization Address City/State/Zipcode Phone Number [...] T ype Group Dates [facility] [id number] 2017-Lux [phone] [employer] [facility] CHOICE [id number] [place] [address] Advance Directives Name Relationship Healthcare Agent Communication Relationship Keaton Nelson Spouse Primary healthcare agent Elisabeth Soliz Sibling [facility] healthcare [phone] agent (Mobile)
--- OUTSIDE RECORDS SUMMARY | 2019-11-07 21:35 | XMS REPORT | Summary of Care ---
:1970 Author Organization [facility] Address [address] [place] [address] Care Team Providers Name Role Phone Elmer Andrade MD Primary Care Provider NAVJOT Espinoza Unavailable Unavailable MD Rocco Unavailable Mary Quezada MD Unavailable Genna Anand NUT CRACKER Unavailable Unavailable MD Casimiro Unavailable Ricardo Rodriguez DO Web Applications Programmer Reason for Visit Reason Comments Notification Rx Concern/Question Encounter Details Date Type Department Care Team Description 07/22/2019 Telephone [facility] Cardiology- Robert Adkins otification; Rx [place] MD Namita Concern/Question [id number] [facility] [id number] [place] [address] [id number] Allergies Active Allergy Reactions Severity Noted Date Comments Adhesive Tape-Silicones Other - See comments 7 Paper tape only !! Tears skin. Other reaction( s): Other (see comm ents) Paper tape only !! Tears skin. Alfuzosin Unknown - See 05/04/2015 comments Beta-Blockers Other - See comments Medium 12/05/2015 Per arnav gutierrez "heart (Beta-Adrenergic rate drop, Blocking Agts) lethargic, [...] (see comm ents) sweating sweating Hot flashes documented as of this encounter (statuses as of 08/05/2019) Medications Medication Sig Dispensed Refills Start Date [...] deficiency anemia due to chronic blood loss Cholecalciferol, Vitamin Take by mouth. 0 Active D3, (VITAMIN D3) 2,000 unit tablet polyethylene glycol Take 17 g by mouth daily. 238 g 3 /11/2018 Active (MIRALAX) 17 gram/dose powderIndications: Constipation, unspecified [...] for Nausea and Hyperglycemia Vomiting (N/V). Insulin [place], Use as directed, 1x 100 Each 1 [...] disorder, without psychotic features, Generalized anxiety disorder pantoprazole 40 mg EC Take 1 tablet by mouth 2 180 tablet 0 Active tablet (two) times daily. documented as of this encounter (statuses as of 08/05/2019) Active Problems Problem Noted Date SOB (shortness [...] Added automatically from request for lillian lawson [id number] Syncope 04/01/2017 Chest pain, rule out acute [...] Chest pain 06/12/2016 Coronary artery disease involving [place] coronary briseyda ry of [place] heart 06/12/2016 with angina pectoris [place] (myocardial infarction) 06/12/2016 Type 2 diabetes mellitus without complication 06/12/20 16 Essential hypertension 06/12/2016 History of alcohol abuse Overview: Sober for 16 years documented as of this encounter (statuses as of 08/05/2019) Resolved Problems Problem Noted Date Resolved Date Chest pain radiating to arm 08/08/2016 08/19/2016 Abdominal pain 07/19/2016 08/19/2016 History of epidural anesthesia 07/04/2016 7 Morbid obesity with body mass index of 50 or higher 06/26/19 17 08/19/2016 Obesity (BMI 30-39.9) 06/12/2016 08/19/2016 documented as of this encounter (statuses as of 08/05/2019) Immunizations Name Administration Dates Next Due Td 06/26/2017, 03/19/2015 documented as of this encounter Social History Tobacco Use Types Packs/Day Years Used Date Former Smoker Cigarettes 1 30 Quit: 06/26/19 15 Smokeless Tobacco: Never Used Comments: quit in [...] Treatment Date Type Specialty Care Team Description 08/13/2019 Nurse Visit Anti-coagulation Clinic Nurse, Vtc Antico ag 08/17/2019 Office Visit Internal Medicine Lilibeth Andrade MD [address] [address] [phone] 08/19/2019 Office Visit Psychiatry Mendez Martinez MD [address] [place] [address]. [place] [address] 08/24/2019 Office Visit Oncology Lincoln Griffiths MD [address] [place], [place] [address] [phone] 08/27/2019 Office Visit Gastroenterology Jorge Luis Mccarty MD [address] [place] [address] [phone] 09/09/2019 Office Visit Internal Medicine Lilibeth Andrade MD [address] [address] [phone] 09/28/2019 Office Visit Cardiology Robert Adkins MD 301 [facility] [address] [place], [place] [address] [phone] 10/12/2019 Office Visit Internal Medicine Lilibeth Andrade MD 146 [facility] [address] [place], [place] [address] 10/19/2019 Office Visit Endocrinology Diabetes & Tre Jones MD Metabolism [address] [place] [address] [phone] 10/27/2019 Office Visit Pulmonary Disease Max Aguiar MD 146 [facility] [address] [place], [place] [address] 11/02/2019 Office Visit Internal Medicine Lilibeth Andrade MD 146 [facility] [address] [place], [place] [address] [phone] 12/02/2019 Appointment Cardiac Electrophysiology Outpt-Simi, Pacemaker/Icd 12/08/2019 Office Visit Ophthalmology Yariel Tineo MD [address] [place] [address] 550 Name Type Priority Associated Diagnoses Order S chedule BASIC METABOLIC PANEL LAB Routine Chronic heart failu re 1 Occurrences starting (NA, K, CL, CO2, with preserved ejection 08/05/2019 until GLUCOSE, BUN, fraction 08/05/2020 CREATININE, CA) Health Maintenance Due Date Last Done Comments EYE EXAM 11/20/2019 11/19/2018, 11/13/2017 HgA1C 01/05/2020 07/07/2019, 05/02/2019, 02/24/2019, Additional history exists URINE MICROALBUMIN 02/07/2020 02/06/2019, 01/19/2018, 08/20/2016 PNEUMOCOCCAL 0-64 YEARS 02/24/2020 Postpone d from COMBINED SERIES (1 of - 1974 (Refused) PPSV23) FOOT EXAM 02/25/2020 02/24/2019, 02/24/2019, 09/22/2018, Additional history exists INFLUENZA VACCINE (#1) 2020 Postponed from 02/21/2019 (Refu sed) LDL-C 05/02/2020 05/02/2019, 07/28/2018, 01/11/2018, Additional history exists Zoster Recombinant Vaccine 05/13/2020 Postp oned from (SHINGRIX) (1 of 2) 2019 ( Insurance / Financial) CREATININE (SERUM) 07/22/2020 07/22/2019, 07/13/2019, 07/07/2019, Additional history exists COLONOSCOPY 04/22/2027 04/22/2017 DTaP,Tdap,and Td Vaccines 06/26/2027 06/26/2017, 03/19/2015 Postponed from (1 - Tdap) 1980 (Not Indicated) documented as of this encounter Implants Implanted Type Area Neurosurgery Spine Physician Device Shelf Model / Identifier Expiration Serial / Date Lot Prolene Mesh MESH Right: Ethicon 12/20/2020 PMSK / Implanted: Qty: 1 on 07/04/2016 by Alfonso Martinez MD at [facility] [employer] PMSK / [id number] Pacemaker PACEMAKER Stent-06/24/2016 Implanted: 06/24/2016 (Quantity not on file) documented as of this encounter Results Not on filedocumented in this encounter Visit Diagnoses Diagnosis Chronic heart failure with preserved eje ction fraction - Primary documented in this encounter Insurance Payer Benefit Plan / Subscriber ID Effective Phone Address T [facility] Group Dates [facility] [id number] 2017-Prese [phone] [employer] HEALTH CHOICE [phone] [place] [address] documented as of this encounter Advance Directives Name Relationship Healthcare Agent Communication Relationship Keaton Leslie Spouse Primary healthcare agent Elisabeth Soliz Sibling First alternate healthcare agent (Mobile)
--- OUTSIDE RECORDS SUMMARY | 2019-11-07 21:36 | XMS REPORT | Summary of Care ---
:1970 Author Organization [facility] Address [address] [place] [address] Care Team Providers Name Role Phone Elmer Andrade MD Primary Care Provider NAVJOT Espinoza Unavailable Unavailable MD Rocco Unavailable Mary Quezada MD Unavailable Genna AnandP Unavailable Unavailable MD Casimiro Unavailable Ricardo Rodriguez DO Hand Splitter Reason for Visit Reason Comments LAB Encounter Details Date Type Department Care Team Description 08/05/2019 Manager Flight Operations Visit [facility] Robert Adkins MD [address] [facility] [id number] [place] [address] Chronic heart Professional Office 2, Adc Lab failure with Building Phlebotomy preserve d ejection Lab fraction Professional Office Building [address] [facility] , [address] [place] [address] Allergies Active Allergy Reactions Severity [...] for Nausea and Hyperglycemia Vomiting (N/V). Insulin [place], Use as directed, 1x 100 Each 1 [...] Added automatically from request for lillian lawson [id number] Syncope 04/01/2017 Chest pain, rule out acute [...] Chest pain 06/12/2016 Coronary artery disease involving [place] coronary briseyda ry of [place] heart 06/12/2016 with angina pectoris [place] (myocardial [...] Visit Internal Medicine Lilibeth Andrade MD [address] [address] [phone] 08/19/2019 Office Visit Psychiatry Mendez Martinez MD [address] [place] [address]. [place] [address] 08/24/2019 Office Visit Oncology Lincoln Griffiths MD [address] [place], [place] [address] [phone] 08/27/2019 Office Visit Gastroenterology Jorge Luis Mccarty MD [address] [place] [address] [phone] 09/09/2019 Office Visit Internal Medicine Lilibeth Andrade MD [address] [address] [phone] 09/28/2019 Office Visit Cardiology Robert Adkins MD 301 [facility] [address] [place], [place] [address] 10/12/2019 Office Visit Internal Medicine Lilibeth Andrade MD 146 [facility] [address] [place], [place] [address] [phone] 10/19/2019 Office Visit Endocrinology Diabetes & Tre Jones MD [facility] [address] [place] [address] [phone] 10/27/2019 Office Visit Pulmonary Disease Max Aguiar MD 146 [facility] [address] [place] [address] [phone] 11/02/2019 Office Visit Internal Medicine Lilibeth Andrade MD 146 [facility] [address] [place] [address] [phone] 12/02/2019 Appointment Cardiac Electrophysiology Outpt-Simi, Pacemaker/Icd 12/08/2019 Office Visit Ophthalmology Yariel Tineo MD [address] [place] [address]. [place] [address] Health Maintenance Due Date Last Done [...] of this encounter Implants Implanted Type Area Senior Application Programmer Device Shelf Model / Identifier Expiration Serial / Date Lot Prolene Mesh MESH Right: Ethicon 12/20/2020 PMSK / Implanted: Qty: 1 on 07/04/2016 by Alfonso Martinez MD at [facility] [employer] PMSK / [id number] Pacemaker PACEMAKER Stent-06/24/2016 Implanted: 06/24/2016 (Quantity not on file) documented as of this encounter Results Not on filedocumented in this encounter Visit Diagnoses Diagnosis Chronic heart failure with preserved eje ction fraction documented in this encounter Insurance Payer Benefit Plan / Subscriber ID Effective Phone Address T e Group Dates [facility] [id number] 2017-Prese [phone] [address] [phone] [place] [address] (Home) [place] [address] documented as of this encounter Advance Directives Name Relationship Healthcare Agent Communication Relationship Keaton Nelson Spouse Primary healthcare agent Elisabeth Soliz Sibling First alternate healthcare agent (Mobile)
--- OUTSIDE RECORDS SUMMARY | 2019-11-07 21:37 | XMS REPORT | Summary of Care ---
:1970 Author Organization [facility] - Health Address [address] [place] [address] Care Team Providers Name Role Phone Elmer Andrade MD Primary Care Provider NAVJOT Espinoza Unavailable Unavailable MD Rocco Unavailable Mary Quezada MD Unavailable Genna Anand DIRECT CHILL CASTING OPERATOR Unavailable Unavailable MD Casimiro Unavailable Ricardo Rodriguez DO Fabricator Foam Rubber Reason for Visit Reason Comments LAB Encounter Details Date Type Department Care Team Description 07/07/2019 Insolvency Consultant Visit [facility] Health Professional Robert Bhakta MD 301 [facility] [address] [place] [address] Hypopotassemia Office Building [facility] Lab Phlebotomy Lab Professional Office Building 146 [facility] , [address] [place] [address] Allergies Active Allergy Reactions Severity Noted Date [...] as of this encounter (statuses as of 07/07/2019) Medications Medication Sig Dispensed Refills Start Date [...] 2 (two) injectionIndications: weeks. Vitamin B12 deficiency ARIPiprazole 10 mg Take 1 tablet by mouth 30 tablet 1 06/10/20 Active tabletIndications: daily. Generalized anxiety disorder, Panic disorder without agoraphobia, Severe episode of recurrent major depressive disorder, without psychotic features clindamycin 1 % Apply to affected 60 mL 6 06/11/2019 Active solutionIndications: area(s) 2 (two) times Folliculitis daily. urea 40 % Apply to area(s) daily. 198 g 6 06/11/2019 Active creamIndications: Xerosis cutis ondansetron (ZOFRAN ODT) 4 Take 1 tablet by mouth 14 tablet 0 06/23/2019 Active mg disintegrating every 8 (eight) hours as tabletIndications: needed for Nausea and Hyperglycemia Vomiting (N/V). Insulin Glargine (LANTUS inject 10 Units under the 3 mL 0 06/25/2019 Active SOLOSTAR U-100 INSULIN) skin daily. 100 unit/mL (3 mL) injection Insulin [place], Use as directed, 1x 100 Each 1 06/25/2019 Active Disposable, (RELION PEN daily, DX:E11.9 NEEDLES) 32 gauge x 5/32" Ndle insulin glargine 100 inject 20 Units under the 0 Active unit/mL injection skin. metOLazone 2.5 mg Take 1 tablet by mouth 30 tablet 2 0 Active tabletIndications: Vitamin weekly. B12 deficiency documented as of this encounter (statuses as of 07/07/2019) Active Problems Problem Noted Date SOB (shortness [...] Added automatically from request for lillian lawson [id number] Syncope 04/01/2017 Chest pain, rule out acute [...] Chest pain 06/12/2016 Coronary artery disease involving [place] coronary briseyda ry of [place] heart 06/12/2016 with angina pectoris [place] (myocardial infarction) 06/12/2016 Type 2 diabetes mellitus without complication 06/12/20 16 Essential hypertension 06/12/2016 History of alcohol abuse Overview: Sober for 16 years documented as of this encounter (statuses as of 07/07/2019) Resolved Problems Problem Noted Date Resolved Date Chest pain radiating to arm 08/08/2016 08/19/2016 Abdominal pain 07/19/2016 08/19/2016 History of epidural anesthesia 07/04/2016 7 Morbid obesity with body mass index of 50 or higher 06/26/19 17 08/19/2016 Obesity (BMI 30-39.9) 06/12/2016 08/19/2016 documented as of this encounter (statuses as of 07/07/2019) Immunizations Name Administration Dates Next Due Td [...] Treatment Date Type Specialty Care Team Description 07/07/2019 Office Visit Endocrinology Diabetes & Tre Jones MD [place] [address] [place] [address] [phone] 07/13/2019 Office Visit Cardiology Al Valiente M D [address] [facility] [address] [place], [place] [address] 07/15/2019 Office Visit Psychiatry Mendez Martinez MD [address] [place] [phone] 07/16/2019 Nurse Visit Anti-coagulation Clinic Nurse, Vtc Antico ag 08/17/2019 Office Visit Internal Medicine Lilibeth Andrade MD [address] [address] [phone] 09/09/2019 Office Visit Internal Medicine Lilibeth Andrade MD 146 [facility] 103 [place], [place] [address] [phone] 09/28/2019 Office Visit Cardiology Robert Adkins MD [address] [place] [address] 10/12/2019 Office Visit Internal Medicine Lilibeth Andrade MD [address] [place] [address] 10/27/2019 Office Visit Pulmonary Disease Max Aguiar MD [address] [address] [phone] 11/02/2019 Office Visit Internal Medicine Lilibeth Andrade MD [address] [place] [address] [phone] 12/02/2019 Appointment Cardiac Electrophysiology Outpt-Simi, Pacemaker/Icd 12/08/2019 Office Visit Ophthalmology Yariel Tineo MD [address] [place], [place] [address]. [place] [address] Health Maintenance Due Date Last Done [...] 2019 ( Insurance / Financial) CREATININE (SERUM) 06/23/2020 06/23/2019, 06/05/2019, 06/04/2019, Additional history exists COLONOSCOPY 04/22/2027 04/22/2017 DTaP,Tdap,and Td Vaccines 06/26/2027 06/26/2017, 03/19/2015 Postponed from (1 - Tdap) 1980 (Not Indicated) documented as of this encounter Implants Implanted Type Area Typo Machine Operator Device Shelf Model / Identifier Expiration Serial / Date Lot Prolene Mesh MESH Right: Ethicon 12/20/2020 PMSK / Implanted: Qty: 1 on 07/04/2016 by Alfonso Martinez MD at [facility] [employer] PMSK / [id number] Pacemaker PACEMAKER Stent-06/24/2016 Implanted: 06/24/2016 (Quantity not on file) documented as of this encounter Results Not on filedocumented in this encounter Visit Diagnoses Diagnosis Hypopotassemia documented in this encounter Insurance Payer Benefit Plan / Subscriber ID Effective Phone Address T e Group Dates [facility] [id number] 2017-Lux [phone] [address] [employer] [phone] [place] [address] (Home) [place] [address] documented as of this encounter Advance Directives Name Relationship Healthcare Agent Communication Relationship Keaton Nelson Spouse Primary healthcare agent Elisabeth Soliz Sibling First alternate healthcare [phone] agent (Mobile)
--- OUTSIDE RECORDS SUMMARY | 2019-11-07 21:38 | XMS REPORT | Summary of Care ---
:[address] [facility] Address [address] [place] [address] Care Team Providers Name Role Phone Elmer Andrade MD Primary Care Provider NAVJOT Espinoza Unavailable Unavailable MD Rocco Unavailable Mary Quezada MD Unavailable Genna Anand Unavailable Unavailable MD Casimiro Unavailable Ricardo Rodriguez DO Delivery Man Reason for Visit Reason Comments Follow-up Diabetes Mellitus II Encounter Details Date Type Department Care Team Description 07/07/2019 Office Visit [facility] Zhen Jones MD Type 2 diabetes mellitus with cardiac co mplication (Primary Dx); Endocrinology- [facility] Secondar y male hypogonadism; [facility] Dyslipidemia; Professional Office [facility] hypertension; Building [address] High serum aldosterone [address] [place] [address] [address] [place] [address] Allergies Active Allergy Reactions Severity Noted Date Comments Adhesive Tape-Silicones Other - See comments 7 Paper tape only !! Tears skin. Other reaction( s): Other (see comm ents) Paper tape only !! Tears skin. Alfuzosin Unknown - See 05/04/2015 comments Beta-Blockers Other - See comments Medium 12/05/2015 Per pa tient "heart (Beta-Adrenergic rate drop, Blocking Agts) lethargic, [...] on 06/04/2019 10:22 PM warfarin 10 mg Take as directed 60 tablet 3 10/30/2018 Active tablet by [facility] based on INR results. warfarin 7.5 mg Take as directed 90 tablet 3 10/30/2018 Active tablet by [facility] based on INR results. ferrous sulfate Take 1 tablet by 270 tablet 3 11/06/2018 Active (IRON) 325 mg (65 mg mouth 3 (three) iron) times daily with tabletIndications: meals. Iron deficiency anemia due to chronic blood loss pantoprazole 40 mg Take 1 tablet by 90 tablet 3 12/18/2018 Active EC tablet mouth 2 (two) times daily. Cholecalciferol, Take by mouth. 0 Active Vitamin D3, (VITAMIN D3) 2,000 unit tablet polyethylene glycol Take 17 g by mouth 238 g 3 01/26/2019 Active (MIRALAX) 17 daily. gram/dose powderIndications: Constipation, unspecified constipation type allopurinol 300 mg Take 1 tablet by 90 tablet 3 02/23/2019 Active tabletIndications: mouth daily. Uric acid stone in urine metformin ER 500 mg Take 1 tablet by 90 tablet 3 02/24/2019 Active 24 hr mouth daily with tabletIndications: breakfast. Type 2 diabetes mellitus with cardiac complication dulaglutide inject 0.75 mg 4 Syringe 4 02/24/2019 Ac tive (TRULICITY) 0.75 under the skin mg/0.5 mL weekly. PnIjIndications: Type 2 diabetes mellitus with cardiac complication KCL 20 mEq Take 3 tablets by 180 tablet 2 03/03/2019 Active tabletIndications: mouth 3 (three) Acute on chronic times daily. diastolic congestive heart failure, Hypopotassemia clonazePAM 1 mg Take 1 pill PO in 120 tablet 1 04/08/2019 Active tabletIndications: the AM, 1 PO in Generalized anxiety the afternoon, 1 disorder, Panic pill PO in the disorder without evening. May take agoraphobia additional 1 pill as needed acute anxiety. desvenlafaxine Take 2 tablets by 60 tablet 1 04/08/2019 Active succinate (PRISTIQ) mouth daily. 100 mg 24 hr tabletIndications: Severe episode of recurrent major depressive disorder, without psychotic features, Generalized anxiety disorder Ranolazine 1,000 mg Take 1 tablet by 60 tablet 4 05/07/2019 Active tablet mouth 2 (two) times daily. ZINC ORAL Take by mouth. 0 Acti ve nystatin 100,000 Apply to area(s) 60 g 11 05/15/2019 Active unit/gram 2 (two) times powderIndications: daily. Skin yeast infection nitroglycerin Place 1 tablet 1 Bottle 1 05/18/2019 Active (NITROSTAT) 0.4 mg under the tongue sublingual tablet every 5 (five) minutes as needed for Chest pain. enoxaparin 100 mg/mL inject 1 mL under 5 Syringe 0 05/26/2019 Active injectionIndications the skin daily. : PAF (paroxysmal Patient needs to atrial fibrillation) stop warfarin and start taking his Lovenox 5 days before his cardiac procedure hydrocortisone 2.5 % Apply to affected 454 g 11 06/01/2019 Active creamIndications: area(s) 2 (two) Seborrheic times daily. If dermatitis Insurance does not cover the jar then give tubes of cream. PROMETHAZINE 25 mg TAKE 1 TABLET BY 30 tablet 11 06/06/2019 Active tabletIndications: MOUTH EVERY SIX Non-intractable HOURS NEEDED vomiting with FOR NAUSEA OR nausea, unspecified VOMITING vomiting type testosterone Apply 2 Pumps to 75 g 3 06/02/2019 Active (ANDROGEL) 20.25 area(s) daily. mg/1.25 gram (1.62 %) gel pumpIndications: Low testosterone enoxaparin 100 mg/mL inject 1.3 mL 3 Syringe 0 06/03/2019 Active injectionIndications under the skin : Chronic pulmonary daily. embolism without acute cor pulmonale, unspecified pulmonary embolism type cyanocobalamin 1 mL by 12 mL 3 06/18/2019 Acti ve (VITAMIN B-12) 1,000 Intramuscular mcg/mL route every 2 injectionIndications (two) weeks. : Vitamin B12 deficiency ARIPiprazole 10 mg Take 1 tablet by 30 tablet 1 06/10/2019 Active tabletIndications: mouth daily. Generalized anxiety disorder, Panic disorder without agoraphobia, Severe episode of recurrent major depressive disorder, without psychotic features clindamycin 1 % Apply to affected 60 mL 6 06/11/2019 Active solutionIndications: area(s) 2 (two) Folliculitis times daily. urea 40 % Apply to area(s) 198 g 6 06/11/2019 A ctive creamIndications: daily. Xerosis cutis ondansetron (ZOFRAN Take 1 tablet by 14 tablet 0 06/23/2019 Active ODT) 4 mg mouth every 8 disintegrating (eight) hours as tabletIndications: needed for Nausea Hyperglycemia and Vomiting (N/V). Insulin [place], Use as directed, 100 Each 1 06/25/2019 Active Disposable, (RELION 1x daily, DX:E11.9 PEN NEEDLES) 32 gauge x 5/32" Ndle metOLazone 2.5 mg Take 1 tablet by 30 tablet 2 07/06/2019 Active tabletIndications: mouth weekly. Vitamin B12 deficiency Insulin Glargine inject 12-14 Units 3 mL 0 07/07/2019 Active (LANTUS SOLOSTAR under the skin U-100 INSULIN) 100 daily. unit/mL (3 mL) injection Insulin Glargine inject 10 Units 3 mL 0 06/25/201907/07 Discontinued (LANTUS SOLOSTAR under the skin /2019 (Dose adjustment) U-100 INSULIN) 100 daily. unit/mL (3 mL) injection insulin glargine 100 inject 20 Units 0 Discontinued unit/mL injection under the skin. documented as of this encounter (statuses as [...] Overview: Added automatically from request for lillian renny [id number] Syncope 04/01/2017 Chest pain, rule out acute [...] Chest pain 06/12/2016 Coronary artery disease involving [place] coronary briseyda ry of [place] heart 06/12/2016 with angina pectoris [place] (myocardial infarction) 06/12/2016 [...] Sign Reading Time Taken Comments Blood Pressure 132/90 07/07/2019 3:09 PM SANITATION SUPERVISOR Pulse 97 07/07/2019 3:09 PM SANITATION SUPERVISOR Temperature - - Respiratory Rate 16 07/07/2019 3:09 PM SANITATION SUPERVISOR Oxygen Saturation - - Inhaled Oxygen Concentration - - Weight 131.6 kg (290 lb 3.2 oz) 07/07/2019 3:09 PM SANITATION SUPERVISOR Height 177.8 cm (5' 10") 07/07/2019 3:09 PM SANITATION SUPERVISOR Body Mass Index 41.64 07/07/2019 3:09 PM SANITATION SUPERVISOR documented in this encounter Patient Instructions Patient InstructionsZhen Jones MD - 07/07/2019 3:00 PM CSTIncrease Lantus to 12 units every morning, you can further increase to 14 units daily in a week if sugar continue above 150 most of time Continue metformin and Trulicity TATION SUPERVISOR documented in this encounter Progress Notes Zhen Jones MD - 07/07/2019 3:00 PM CST chief complaint:Type 2 diabetes mellitus, Secondary hypogonadism- follow up HPI Patient is a 49 year old /White male who is here today for Diabetes Mellitus Type 2. Patient's diabetes is complicated by atherogenic diet, hyperlipidemia, hypertension , macrovascular complications: Congestive Heart Failure, neuropathy: Peripheral and lower extremity and obesity. Per cardiology: PMH HFpEF, DM, HTN, obesity, GREGORIO, pAfib, PE, and CAD STEMI in 11/2015 treated with RCA PCI in [facility] in [place]. 2 weeks later he had recurrent chest [...] heavy alcohol use, gastroparesis and no family h/o pancreatic or thyroid cancer . No personal h/o UTI, yeast infection. NICHOLAS was in 02/2019 with A1C worsened from 6.2 to 8.2. He had ER admission 2 weeks ago for high sugar and was started on Lantus 10 units daily Patient has no acute problems today. Reports compliance with Diabetes regimen: Metformin ER 500 mg QAM, Trulicity 0.75 mg weekly and Lantus 10 units daily Patient checks glucose twice a day Average Glucose readings: AM fasting 159-229, before dinner 223-256, bedtime 171-222 Hypoglycemia: None Reports noncompliance with diet during holiday and gained 6 lbs . He has been unable to exercise due to back pain and CHF Hypogonadism: Baseline testosterone total 20-30 range twice Cause: Secondary to chronic past opIoid use Prolactin minimally elevated. No galactorrhea Symptoms: fatigue, mood changes, depression, loss of libido, infertility, muscle weakness, gynecomastia Admits to h/o chronic use of [place] since 1989's for back pain, infertility ( [...] Well controlled at least since 05/2017 ( [facility] records) Current medications: Amiloride 5 mg bid, Hypokalemia: Takes potassium 20 mg TID and Lasix 80 mg bid, As needed Metoprolol 12.5 mg XL daily, Off Metolazone 2.5 mg as needed Reports BPs at home has been at goal. Reports compliance with amlodipine 5mg BID, lasix 80mg daily metolazone 2.5mg once a week PRN Elevated aldosterone level: Not primary aldosteronism Patient [...] renin 10 He was referred to a mobile phlebotomist who ordered 24 hour urine aldosterone which [...] MAINTENANCE Last Ophthalmology visit was 12/2018, no Patient on JOSIANE/ARB therapy - No Patient on ASA therapy - Yes. Patient on Statin/Fibrate therapy - Yes. Patient instructed about daily feet exams, last sensation exam was 02/24/2019 Patient has received Nutrition/Diet/Diabetes Education on today. HISTORY Past Medical History: Diagnosis Date AAA (abdominal aortic aneurysm) 3 cm Anxiety CHF (congestive heart failure) 2-liter fluid restriction; Dr. Valiente is cotton weigher Degenerative disc disease, lumbar on CT scan Diabetes Hernia s/p surgery 06/2016 History of alcohol abuse Stopped 1999 History of pernicious anemia HLD (hyperlipidemia) Hypertension Kidney stones calcium oxalate Lung nodule largest was 7mm on CT scan in 07/2017. smoking history. will need repeat in 6-12 months. NJ (myocardial infarction) November 2015, 1 stent in [...] N/A 07/04/2016 Surgeon: Alfonso Martinez MD; Location: [place] [facility] Location LUMBAR EPIDURAL STEROID INJECTION N/A 03/10/2017 Surgeon: Dagoberto Luna MD; Location: [facility] Location LUMBAR EPIDURAL STEROID INJECTION N/A 04/14/2017 Surgeon: Dagoberto Luna MD; Location: [place] [facility] Location LUMBAR EPIDURAL STEROID INJECTION N/A 04/28/2017 Surgeon: Dagoberto Luna MD; Location: [place] [facility] Location LUMBAR EPIDURAL STEROID INJECTION N/A 03/29/2019 Surgeon: Dagoberto Luna MD; Location: [place] [facility] Location LUMBAR EPIDURAL STEROID INJECTION N/A 04/12/2019 Surgeon: Dagoberto Luna MD; Location: [place] [facility] Location LUMBAR EPIDURAL STEROID INJECTION N/A 04/26/2019 Surgeon: Dagoberto Luna MD; Location: [place] [facility] [facility] Location PILL CAM (SHX) Left 07/14/2017 [...] Last attempt to quit: 06/26/2014 Years since quittin.0 Smokeless tobacco: Never Used Tobacco comment: quit in 2013 Substance and Sexual Activity Alcohol use: No Alcohol/week: 0.0 standard drinks Drug use: No Sexual activity: Yes Partners: Female Lifestyle Physical activity: Days per week: Not on file Minutes per session: Not on file Stress: Not on file Relationships Social connections: Talks on phone: Not on file Gets together: Not on file Attends sabianist service: Not on file Active member of [...] PHYSICAL EXAM POCT GLU (mg/dL) Date Value 06/23/2019 217 (H) CREATININE (mg/dL) Date Value 07/07/2019 1.11 CREATININE-Q (mg/dL) Date Value 11/24/2017 0.88 CHOL (mg/dL) Date Value 05/02/2019 204 (H) HDL (mg/dL) Date Value 05/02/2019 51 LDL CHOL (mg/dL) Date Value 05/02/2019 122 TRIG (mg/dL) Date Value 05/02/2019 156 MICROAL/CR (ug/mmol creatinine) Date Value 02/06/2019 542 POCT HBA1C (%) Date Value 07/07/2019 8.3 (A) 02/24/2019 8.2 HGB A1C (% NGSP) Date Value 05/02/2019 8.6 (H) BP 132/90 (BP Location: Left arm, Patient Position: Sitting, BP CUFF SIZE: Adult Large) | Pulse 97| Resp 16 | Ht 5' 10" (1.778 m) | Wt 290 lb 3.2 oz (131.6 kg) | BMI 41.64 kg/m {General: alert, oriented times three, no [...] findings. Extremities/Musculoskeletal: no cyanosis, no edema . Component Latest Ref Rng & Units 02/21/2017 [...] mellitus with cardiac complication -A1C (target=6-7%): 6.2 (10/09)--8.2(02/08) worsened from previous , 2/2 non compliance with diet -glucose range: hyperglycemia thru the day - without symptomatic hypoglycemia -complication: neuropathy nephropathy macrovascular: CAD -medication limitation: deferred insulin in past -diet: high carbs during holiday -exercise: limited by joint pain Plan -reinterated to check glucose BID alternating fasting and 2 hours post meals -urged compliance with diet/exercise - POCT HEMOGLOBIN A1C TEST - reduce metformin ER 500 mg 24 hr tablet; Take 1 tablet by mouth daily with breakfast. - dulaglutide (TRULICITY) 0.75 mg/0.5 mL PnIj; inject 0.75 mg under the skin weekly. Patient Instructions Increase Lantus to 12 units every morning, you can further increase to 14 units daily in a week if sugar continue above 150 most of time Continue metformin and Trulicity 2. Secondary male hypogonadism Comment: Improved testosterone level at goal with androgel 2 pumps daily. H/o CAD-start low dose testosterone H/o DVT/ PE- on anticoagulation H/o GREGORIO- controlled Plan: I discussed complications of testosterone replacement with patient including h/o DVT/PE, prostate cancer, uncontrolled BPH, severe uncontrolled GREGORIO Disussed benefits of testosterone replacement including bone health Discussed side effects of testosterone including BPH symptoms, hemoconcentration, gynecomastia, azoospermia Discussed need to monitor PSA, testosterone and HCT periodically while on treatment Discussed benefits and side effects of topical versus testosterone shots Patient voices understanding to above Continue current replacement 3. Dyslipidemia Comment: Improved. Plan Takes Lipitor 40 mg 4. Essential hypertension [...] Treatment Date Type Specialty Care Team Description 07/13/2019 Office Visit Cardiology Al Valiente M D [address] [place] [address] [address] [place], [place] [address] 07/15/2019 Office Visit Psychiatry Mendez Martinez MD [address] [place] [address]. [place] [address] 07/16/2019 Nurse Visit Anti-coagulation Clinic Nurse, Vtc Antico ag 07/22/2019 Office Visit Dermatology Kaitlin Dent MD [address] [place] [phone] 08/17/2019 Office Visit Internal Medicine Lilibeth Andrade MD [address] [place] [address] 15 [phone] 09/09/2019 Office Visit Internal Medicine Lilibeth Andrade MD [address] [place] [address] 15 [phone] 09/28/2019 Office Visit Cardiology Robert Adkins MD [address] [facility] [address] [place] [address] 10/12/2019 Office Visit Internal Medicine Lilibeth Andrade MD [address] [place] [address] 15 [phone] 10/19/2019 Office Visit Endocrinology Diabetes & JonesTre MD [facility] [address] [place] [address] [phone] 10/27/2019 Office Visit Pulmonary Disease Max Aguiar MD [address] [place] [address] 15 [phone] 11/02/2019 Office Visit Internal Medicine Lilibeth Andrade MD [address] [place] [address] 15 [phone] 12/02/2019 Appointment Cardiac Electrophysiology Outpt-Simi, Pacemaker/Icd 12/08/2019 Office Visit Ophthalmology Yariel Tineo MD [address] [place], [place] [address]. [place], [place] [address] Health Maintenance Due Date [...] of this encounter Implants Implanted Type Area Stringing Machine Tender Device Shelf Model / Identifier Expiration Serial / Date Lot Prolene Mesh MESH Right: Ethicon 12/20/2020 PMSK / Implanted: Qty: 1 on 07/04/2016 by Alfonso Martinez MD at [facility] [employer] PMSK / [id number] Pacemaker PACEMAKER Stent-06/24/2016 Implanted: 06/24/2016 (Quantity not on file) documented as of this encounter Procedures Procedure Name Priority Date/Time Associated Diagnosis Comme nts POCT HEMOGLOBIN A1C Routine 07/07/2019 Type 2 diabetes Resul ts for this TEST mellitus with cardiac proced ure are in the complication results section . 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 [employer] A[employer] HEALTH Subtext [facility] [address] [place] [address] (Home) [place] [address] documented as of this encounter Advance Directives Name Relationship Healthcare Agent Communication Relationship Keaton Nelson Spouse Primary healthcare agent Elisabeth Soliz Sibling [place] [phone] agent (Mobile)
--- OUTSIDE RECORDS SUMMARY | 2019-11-07 21:38 | XMS REPORT | Summary of Care ---
:1970 Author Organization [facility] Address [address] [place] [address] Care Team Providers Name Role Phone Elmer Andrade MD Primary Care Provider NAVJOT Espinoza Unavailable Unavailable MD Rocco Unavailable Mary Quezada MD Unavailable Genna Anand Unavailable Unavailable MD Casimiro Unavailable Ricardo Rodriguez DO Trial Manager Reason for Visit Reason Comments Follow-up Diabetes Mellitus II Encounter Details Date Type Department Care Team Description 07/07/2019 Office Visit [facility] Zhen Jones MD Type 2 diabetes mellitus with cardiac co mplication (Primary Dx); Endocrinology- [facility] Second[facility] y male hypogonadism; [facility] Dyslipidemia; Professional Office [facility] hypertension; Building [address] High serum aldosterone [address] [place] [address] [address] [place] [address] Allergies Active Allergy Reactions Severity [...] for Nausea Hyperglycemia and Vomiting (N/V). Insulin [place], Use as directed, 100 Each 1 06/25/2019 [...] Added automatically from request for lillian renny [id number] Syncope 04/01/2017 Chest pain, rule out acute [...] Chest pain 06/12/2016 Coronary artery disease involving [place] coronary briseyda ry of [place] heart 06/12/2016 with angina pectoris [place] (myocardial [...] Comments Blood Pressure 132/90 07/07/2019 3:09 PM MILK INSPECTOR Pulse 97 07/07/2019 3:09 PM MILK INSPECTOR Temperature - - Respiratory Rate 16 07/07/2019 3:09 PM MILK INSPECTOR Oxygen Saturation - - Inhaled Oxygen Concentration - - Weight 131.6 kg (290 lb 3.2 oz) 07/07/2019 3:09 PM MILK INSPECTOR Height 177.8 cm (5' 10") 07/07/2019 3:09 PM MILK INSPECTOR Body Mass Index 41.64 07/07/2019 3:09 PM MILK INSPECTOR documented in this encounter Patient Instructions Patient InstructionsZhen Jones MD - 07/07/2019 3:00 PM CSTIncrease Lantus to 12 units every morning, you can further increase to 14 units daily in a week if sugar continue above 150 most of time Continue metformin and Trulicity INSPECTOR documented in this encounter Progress Notes Zhen [...] in 11/2015 treated with RCA PCI in [facility] in [place]. 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 smoking history. will need repeat in 6-12 months. MT (myocardial infarction) November 2015, 1 stent in [...] 2014 INGUINAL HERNIORRHAPHY N/A 07/04/2016 Surgeon: Alfonso Martniez MD; Location: [place] [facility] Location LUMBAR EPIDURAL STEROID INJECTION N/A 03/10/2017 Surgeon: Dagoberto Luna MD; Location: [facility] Location LUMBAR EPIDURAL STEROID INJECTION N/A 04/14/2017 Surgeon: Dagoberto Luna MD; Location: [place] Location LUMBAR EPIDURAL STEROID INJECTION N/A 04/28/2017 Surgeon: Dagoberto Luna MD; Location: [place] Location LUMBAR EPIDURAL STEROID INJECTION N/A 03/29/2019 Surgeon: Dagoberto Luna MD; Location: [place] [facility] Location LUMBAR EPIDURAL STEROID INJECTION N/A 04/12/2019 Surgeon: Dagoberto Luna MD; Location: [place] [facility] Location LUMBAR EPIDURAL STEROID INJECTION N/A 04/26/2019 Surgeon: Dagoberto Luna MD; Location: [place] Location PILL CAM (SHX) Left 07/14/2017 [...] file Gets together: Not on file Attends voodoo service: Not on file Active member of [...] Office Visit Cardiology Al Valiente M D [address] [place] [address] [address] [place], [place] [address] 07/15/2019 Office Visit Psychiatry Mendez Martinez MD [address] [place] [address]. [place] [address] 07/16/2019 Nurse Visit Anti-coagulation Clinic Nurse, Vtc Antico ag 07/22/2019 Office Visit Dermatology Kaitlin Dent MD [address] [place] [phone] 08/17/2019 Office Visit Internal Medicine Lilibeth Andrade MD [address] [place] [address] 15 [phone] 09/09/2019 Office Visit Internal Medicine Lilibeth Andrade MD [address] [place] [address] 15 [phone] 09/28/2019 Office Visit Cardiology Robert Adkins MD 301 [facility] [address] [place] [address] 10/12/2019 Office Visit Internal Medicine Lilibeth Andrade MD [address] [place] [address] 15 [phone] 10/19/2019 Office Visit Endocrinology Diabetes & JonesTre MD [facility] [address] [place] [address] [phone] 10/27/2019 Office Visit Pulmonary Disease Max Aguiar MD [address] [place] [address] 15 [phone] 11/02/2019 Office Visit Internal Medicine Lilibeth Andrade MD [address] [place] [address] 15 [phone] 12/02/2019 Appointment Cardiac Electrophysiology Outpt-Simi, Pacemaker/Icd 12/08/2019 Office Visit Ophthalmology Yariel Tineo MD [address] [place], [place] [address] [place], [place] [address] Health Maintenance Due Date [...] of this encounter Implants Implanted Type Area Farmer And Grazier Device Shelf Model / Identifier Expiration Serial / Date Lot Prolene Mesh MESH Right: Ethicon 12/20/2020 PMSK / Implanted: Qty: 1 on 07/04/2016 by Alfonso Martinez MD at [facility] [employer] PMSK / [id number] Pacemaker PACEMAKER Stent-06/24/2016 Implanted: 06/24/2016 (Quantity not [...] Phone Address T ype Group Dates HIM [facility] [id number] 2017-Lux [phone] [address] [employer] [facility] [id number] [place] [address] (Home) [place] [address] documented as of this encounter Advance Directives Name Relationship Healthcare Agent Communication Relationship Keaton Nelson Spouse Primary healthcare agent Elisabeth Soliz Sibling [place] [phone] agent (Mobile)
--- OUTSIDE RECORDS SUMMARY | 2019-11-07 21:39 | XMS REPORT | Summary of Care ---
:[address] [facility] - Health Address [address] [place] [address] Care Team Providers Name Role Phone Elmer Andrade MD Primary Care Provider NAVJOT Espinoza Unavailable Unavailable MD Rocco Unavailable Mary Quezada MD Unavailable Genna Anand Unavailable Unavailable MD Casimiro Unavailable Ricardo Rodriguez DO Bi Developer Reason for Visit Reason Comments LAB Encounter Details Date Type Department Care Team Description 07/07/2019 Machine Adjuster Leader Case Trim Visit [facility] Health Professional Robert Bhakta MD 301 [facility] [id number] [place] [address] Hypopotassemia Office Building 2, [facility] Lab Phlebotomy Lab Professional Office Building 146 [facility] , [address] [place] [address] Allergies Active Allergy Reactions Severity Noted [...] as of this encounter (statuses as of 07/08/2019) Medications Medication Sig Dispensed Refills Start Date [...] for Nausea Hyperglycemia and Vomiting (N/V). Insulin [place], Use as directed, 100 Each 1 06/25/2019 Active Disposable, (RELION 1x daily, DX:E11.9 PEN NEEDLES) 32 gauge x 5/32" Ndle metOLazone 2.5 mg Take 1 tablet by 30 tablet 2 07/06/2019 Active tabletIndications: mouth weekly. Vitamin B12 deficiency Insulin Glargine inject 10 Units 3 mL 0 06/25/201907/07 Discontinued (LANTUS SOLOSTAR under the skin /2019 (Dose adjustment) U-100 INSULIN) 100 daily. unit/mL (3 mL) injection insulin glargine 100 inject 20 Units 0 Discontinued unit/mL injection under the skin. documented as of this encounter (statuses as of 07/08/2019) Active Problems Problem Noted Date SOB (shortness [...] Added automatically from request for lillian lawson [id number] Syncope 04/01/2017 Chest pain, rule out acute [...] Chest pain 06/12/2016 Coronary artery disease involving [place] coronary briseyda ry of [place] heart 06/12/2016 with angina pectoris [place] (myocardial infarction) 06/12/2016 Type 2 diabetes mellitus without complication 06/12/20 16 Essential hypertension 06/12/2016 History of alcohol abuse Overview: Sober for 16 years documented as of this encounter (statuses as of 07/08/2019) Resolved Problems Problem Noted Date Resolved Date Chest pain radiating to arm 08/08/2016 08/19/2016 Abdominal pain 07/19/2016 08/19/2016 History of epidural anesthesia 07/04/2016 7 Morbid obesity with body mass index of 50 or higher 06/26/19 17 08/19/2016 Obesity (BMI 30-39.9) 06/12/2016 08/19/2016 documented as of this encounter (statuses as of 07/08/2019) Immunizations Name Administration Dates Next Due Td 06/26/2017, 03/19/2015 documented as of this encounter Social History Tobacco Use Types Packs/Day Years Used Date Former Smoker Cigarettes 07 22 Quit: 06/26/19 15 Smokeless Tobacco: Never Used [...] Visit Cardiology Al Valiente M D 146 [facility] [address] [place], [place] [address] [phone] 07/15/2019 Office Visit Psychiatry Mendez Martinez MD [address] [place] [address]. [place] [address] 07/16/2019 Nurse Visit Anti-coagulation Clinic Nurse, Vtc Antico ag 07/22/2019 Office Visit Dermatology Kaitlin Dent MD 301 [place] [phone] 08/17/2019 Office Visit Internal Medicine Lilibeth Andrade MD [address] [address] [phone] 09/09/2019 Office Visit Internal Medicine Lilibeth Andrade MD [address] [address] [phone] 09/28/2019 Office Visit Cardiology Robert Adkins MD [address] [place], [place] [address] 10/12/2019 Office Visit Internal Medicine Lilibeth Andrade MD 146 [facility] 103 [place], [place] [address] [phone] 10/19/2019 Office Visit Endocrinology Diabetes & Jones, Tre rodriguez MD Metabolism 2660 [place] [address] [phone] 10/27/2019 Office Visit Pulmonary Disease Max Aguiar MD 146 [facility] 106 [place], [place] [address] [phone] 11/02/2019 Office Visit Internal Medicine Lilibeth Andrade MD 146 [facility] 103 [place], [place] [address] [phone] 12/02/2019 Appointment Cardiac Electrophysiology Outpt-Simi, Pacemaker/Icd 12/08/2019 Office Visit Ophthalmology Yariel Tineo MD [address] [place] [address]. [place], [place] [address] Health Maintenance Due Date [...] 2019 ( Insurance / Financial) CREATININE (SERUM) 07/07/2020 07/07/2019, 06/23/2019, 06/05/2019, Additional history exists COLONOSCOPY 04/22/2027 04/22/2017 DTaP,Tdap,and Td Vaccines 06/26/2027 06/26/2017, 03/19/2015 Postponed from (1 - Tdap) 1980 (Not Indicated) documented as of this encounter Implants Implanted Type Area Automation Manager Device Shelf Model / Identifier Expiration Serial / Date Lot Prolene Mesh MESH Right: Ethicon 12/20/2020 PMSK / Implanted: Qty: 1 on 07/04/2016 by Alfonso Martinez MD at [facility] [employer] PMSK / [id number] Pacemaker PACEMAKER Stent-06/24/2016 Implanted: 06/24/2016 (Quantity not on file) documented as of this encounter Procedures Procedure Name Priority Date/Time Associated Diagnosis Comme nts BASIC METABOLIC Routine 07/07/2019 8:16 Hypopotassemia Result s for this PANEL (NA, K, CL, AM ENTRY WRITER procedure are in CO2, GLUCOSE, BUN, the resul ts CREATININE, CA) section. documented in this encounter Results BASIC METABOLIC PANEL (NA, K, CL, CO2, GLUCOSE, BUN, CREATININE, CA) (07/07/2019 8:16 AM ENTRY WRITER) Pathologist Sig nature NA 133 (L) 135 - 145 [facility] mmol/L [facility] K 3.6 3.5 - 5.0 [facility] mmol/L [facility] CL 91 (L) 98 - 108 mmol/L [facility] CO2 TOTAL 33 (H) 23 - 31 mmol/L [facility] AGAP 9 2 - 16 [facility] BUN 20 7 - 23 mg/dL [facility] GLUCOSE 180 (H) 70 - 110 mg/dL [facility] CREATININE 1.11 0.60 - 1.25 [facility] mg/dL [facility] CALCIUM 10.1 8.6 - 10.6 [facility] mg/dL [facility] eGFR Calculation 70.1 mL/min/1.73m2 [facility] ([facility]) eGFR Calculation 85.0 mL/min/1.73m2 [facility] ([facility]) [facility] Specimen Blood Narrative Performed At Association of Glomerular Filtration Rate (GFR) [facility] and Staging [...] tests). Performing Organization Address City/State/Zipcode Phone Number [facility] CLIA: [id number], 132 [place], [place] [address] documented in this encounter Visit Diagnoses Diagnosis Hypopotassemia documented in this encounter Insurance Payer Benefit Plan / Subscriber ID Effective Phone Address T ype Group Dates [facility] [id number] 2017-Lux [phone] [facility] [phone] [place] [address] (Home) [place] [address] documented as of this encounter Advance Directives Name Relationship Healthcare Agent Communication Relationship Keaton Nelson Spouse Primary healthcare agent Elisabeth Soliz Sibling First alternate healthcare [phone] agent (Mobile)
--- OUTSIDE RECORDS SUMMARY | 2019-11-07 21:40 | XMS REPORT | Summary of Care ---
:1970 Author Organization [facility] Address [address] [place] [address] Care Team Providers Name Role Phone Elmer Andrade MD Primary Care Provider NAVJOT Espinoza Unavailable Unavailable MD Rocco Unavailable Mary Quezada MD Unavailable Genna Anand Unavailable Unavailable MD Casimiro Unavailable Ricardo Rodriguez DO Clay Artisan Reason for Visit Reason Comments Results Encounter Details Date Type Department Care Team Description 07/05/2019 Telephone [facility] Cardiology, Robert Adkins, Results [facility] 250 [facility] 410 301 [facility] RI[address] [place] [address] [place], [place] [address] Allergies Active Allergy Reactions Severity Noted Date [...] for Nausea Hyperglycemia and Vomiting (N/V). Insulin [place], Use as directed, 100 Each 1 06/25/2019 Active Disposable, (RELION 1x daily, DX:E11.9 PEN NEEDLES) 32 gauge x 5/32" Ndle Insulin Glargine inject 10 Units 3 mL 0 06/25/201907/07 Discontinued (LANTUS SOLOSTAR under the skin /2019 (Dose adjustment) U-100 INSULIN) 100 daily. unit/mL (3 mL) injection documented as of this encounter (statuses as [...] Added automatically from request for lillian lawson [id number] Syncope 04/01/2017 Chest pain, rule out acute [...] Chest pain 06/12/2016 Coronary artery disease involving [place] coronary briseyda ry of [place] heart 06/12/2016 with angina pectoris [place] (myocardial infarction) 06/12/2016 [...] Visit Cardiology Al Valiente M D 146 [facility] [address] [place], [place] [address] 07/15/2019 Office Visit Psychiatry Mnedez Martinez MD [address] [place] [address] 07/16/2019 Nurse Visit Anti-coagulation Clinic Nurse, Vtc Antico ag 07/22/2019 Office Visit Dermatology Kaitlin Dent MD 301 [place] [address] 08/17/2019 Office Visit Internal Medicine Lilibeth Andrade MD [address] [address] [phone] 09/09/2019 Office Visit Internal Medicine Lilibeth Andrade MD [address] [address] [phone] 09/28/2019 Office Visit Cardiology Robert Adkins MD 301 [facility] [address] [place], [place] [address] 10/12/2019 Office Visit Internal Medicine Lilibeth Andrade MD [address] [address] [phone] 10/19/2019 Office Visit Endocrinology Diabetes & Jones, Tre rodriguez MD Metabolism 2660 [place] [address] [phone] 10/27/2019 Office Visit Pulmonary Disease Max Aguiar MD 146 [facility] 106 [place], [place] [address] [phone] 11/02/2019 Office Visit Internal Medicine Lilibeth Andrade MD 146 [facility] 103 [place], [place] [address] [phone] 12/02/2019 Appointment Cardiac Electrophysiology Outpt-Simi, Pacemaker/Icd 12/08/2019 Office Visit Ophthalmology Yariel Tineo MD [address] [place] [address] Name Type Priority Associated Diagnoses Order S chedule BASIC METABOLIC PANEL LAB LIVIA Hypopotassemia 1 Oc currences starting (NA, K, CL, CO2, 07/06/2019 until GLUCOSE, BUN, 07/06/2020 CREATININE, CA) BASIC METABOLIC PANEL LAB Routine Hypopotass emia 1 Occurrences starting (NA, K, CL, CO2, Chronic diastolic CHF until GLUCOSE, BUN, (congestive heart failure) 07/08/2020 CREATININE, CA) Health Maintenance Due Date Last [...] of this encounter Implants Implanted Type Area Aircraft Sales Representative Device Shelf Model / Identifier Expiration Serial / Date Lot Prolene Mesh MESH Right: Ethicon 12/20/2020 PMSK / Implanted: Qty: 1 on 07/04/2016 by Alfonso Martinez MD at [facility] [employer] PMSK / [id number] Pacemaker PACEMAKER Stent-06/24/2016 Implanted: 06/24/2016 (Quantity not on file) documented as of this encounter Results BASIC METABOLIC PANEL (NA, K, CL, CO2, GLUCOSE, BUN, CREATININE, CA) (07/07/2019 8:16 AM PRINCIPAL ELECTRICAL ENGINEER) Pathologist Sig nature NA 133 (L) 135 - 145 [facility] mmol/L [facility] K 3.6 3.5 - 5.0 [facility] mmol/L [facility] CL 91 (L) 98 - 108 mmol/L [facility] CO2 TOTAL 33 (H) 23 - 31 mmol/L [facility] AGAP 9 2 - 16 [facility] BUN 20 7 - 23 mg/dL [facility] GLUCOSE 180 (H) 70 - 110 mg/dL [facility] CREATININE 1.11 0.60 - 1.25 [facility] mg/dL [facility] CALCIUM 10.1 8.6 - 10.6 [facility] mg/dL [facility] eGFR Calculation 70.1 mL/min/1.73m2 [facility] (Non- HOSPITAL LABORATORY Burmese) eGFR Calculation 85.0 mL/min/1.73m2 [facility] ([facility] LABORATORY Specimen Blood Narrative Performed At Association [...] tests). Performing Organization Address City/State/Zipcode Phone Number [facility] CLIA: [id number], [address] [place] [address] 15 [facility] documented in this encounter Visit Diagnoses Diagnosis Hypopotassemia - Primary Chronic diastolic CHF (congestive heart failure) documented in this encounter Insurance Payer Benefit Plan / Subscriber ID Effective Phone Address Kellee [employer] [facility] [id number] 2017-Lux [phone] [address] [email or web address] [facility] [email or web address] [facility] [phone] [place] [address] documented as of this encounter Advance Directives Name Relationship Healthcare Agent Communication Relationship Keaton Nelson Spouse Primary healthcare agent Elisabeth Soliz Sibling First alternate healthcare agent (Mobile)
--- OUTSIDE RECORDS SUMMARY | 2019-11-07 21:41 | XMS REPORT | Summary of Care ---
:1970 Author Organization [facility] Address [address] [place] [address] Care Team Providers Name Role Phone Elmer Andrade MD Primary Care Provider NAVJOT Espinoza Unavailable Unavailable MD Rocco Unavailable Mary Quezada MD Unavailable Genna Anand Unavailable Unavailable MD Casimiro Unavailable Ricardo Rodriguez DO Multimedia Journalist Reason for Visit Reason Comments LAB Encounter Details Date Type Department Care Team Description 07/13/2019 Shingle Trimmer Visit [facility] Robert Adkins MD 301 [facility] [address] [place] [address] Chronic diastolic CHF (congestive heart failure); Professional Office 2, [facility] Lab Hypopotassemia Building Phlebotomy Lab Professional Office Building 146 [facility] , [address] [place] [address] Allergies Active Allergy Reactions Severity [...] as of this encounter (statuses as of 07/13/2019) Medications Medication Sig Dispensed Refills Start Date [...] for Nausea and Hyperglycemia Vomiting (N/V). Insulin [place], Use as directed, 1x 100 Each 1 06/25/2019 Active Disposable, (RELION PEN daily, DX:E11.9 NEEDLES) 32 gauge x 5/32" Ndle metOLazone 2.5 mg Take 1 tablet by mouth 30 tablet 2 0 Active tabletIndications: Vitamin weekly. B12 deficiency Insulin Glargine (LANTUS inject 12-14 Units under 3 mL 0 07/07/2019 Active SOLOSTAR U-100 INSULIN) the skin daily. 100 unit/mL (3 mL) injection documented as of this encounter (statuses as of 07/13/2019) Active Problems Problem Noted Date SOB (shortness [...] Added automatically from request for lillian renny [id number] Syncope 04/01/2017 Chest pain, rule out acute [...] 06/12/2016 Coronary artery disease involving [place] coronary briseyda ry of [place] heart 06/12/2016 with angina pectoris [place] (myocardial infarction) 06/12/2016 Type 2 diabetes mellitus without complication 06/12/20 16 Essential hypertension 06/12/2016 History of alcohol abuse Overview: Sober for 16 years documented as of this encounter (statuses as of 07/13/2019) Resolved Problems Problem Noted Date Resolved Date Chest pain radiating to arm 08/08/2016 08/19/2016 Abdominal pain 07/19/2016 08/19/2016 History of epidural anesthesia 07/04/2016 7 Morbid obesity with body mass index of 50 or higher 06/26/19 17 08/19/2016 Obesity (BMI 30-39.9) 06/12/2016 08/19/2016 documented as of this encounter (statuses as of 07/13/2019) Immunizations Name Administration Dates Next Due Td [...] Treatment Date Type Specialty Care Team Description 07/15/2019 Office Visit Psychiatry Osamr Almeida M D 400 [place], [place] [phone] Mendez Martinez MD [address] [place] [phone] 07/16/2019 Nurse Visit Anti-coagulation Clinic Nurse, Vtc Antico ag 07/22/2019 Office Visit Dermatology Kaitlin Dent MD [address] [place] [address] 08/17/2019 Office Visit Internal Medicine Lilibeth Andrade MD [address] [address] [phone] 09/09/2019 Office Visit Internal Medicine Lilibeth Andrade MD [address] [address] [phone] 09/28/2019 Office Visit Cardiology Robert Adkins MD 301 [facility] [address] [place] [address] 10/12/2019 Office Visit Internal Medicine Lilibeth Andrade MD 146 [facility] 103 [place], [place] [address] [phone] 10/19/2019 Office Visit Endocrinology Diabetes & JonesTre MD Metabolism 2660 [place] [address] [phone] 10/27/2019 Office Visit Pulmonary Disease Max Aguiar MD 146 [facility] 106 [place], [place] [address] [phone] 11/02/2019 Office Visit Internal Medicine Lilibeth Andrade MD 146 [facility] 103 [place], [place] [address] [phone] 12/02/2019 Appointment Cardiac Electrophysiology Outpt-Simi, Pacemaker/Icd 12/08/2019 Office Visit Ophthalmology Yariel Tineo MD [address] [place] [address]. [place], [place] [address] Health Maintenance Due Date [...] of this encounter Implants Implanted Type Area Residential Specialist Device Shelf Model / Identifier Expiration Serial / Date Lot Prolene Mesh MESH Right: Ethicon 12/20/2020 PMSK / Implanted: Qty: 1 on 07/04/2016 by Alfonso Martinez MD at [facility] [employer] PMSK / [id number] Pacemaker PACEMAKER Stent-06/24/2016 Implanted: 06/24/2016 (Quantity not on file) documented as of this encounter Results Not on filedocumented in this encounter Visit Diagnoses Diagnosis Chronic diastolic CHF (congestive heart failure) Hypopotassemia documented in this encounter Insurance Payer Benefit Plan / Subscriber ID Effective Phone Address T ype Group Dates [facility] [id number] 2017-Prese [phone] [address] [employer] [facility] [employer] HEALTH CHOICE [phone] [place] [address] (Home) [place] [address] documented as of this encounter Advance Directives Name Relationship Healthcare Agent Communication Relationship Keaton Nelson Spouse Primary healthcare agent Elisabeth Soliz Sibling First alternate healthcare [phone] agent (Mobile)
--- OUTSIDE RECORDS SUMMARY | 2019-11-07 21:42 | XMS REPORT | Summary of Care ---
:1970 Author Organization [facility] - [facility] Address [address] [place] [address] Care Team Providers Name Role Phone Elmer Andrade MD Primary Care Provider NAVJOT Espinoza Unavailable Unavailable MD Rocco Unavailable Mary Quezada MD Unavailable Genna Anand [employer] Unavailable Unavailable MD Casimiro Unavailable Ricardo Rodriguez DO Lead Vulcanizing Operator Reason for Referral (Routine) Status Reason Specialty Diagnoses / Referred By Referred To Procedures Contact Contact New Request Pulmonary Function Diagnoses SCHILLING (dyspnea on exertion) Al Valiente Technologist Procedures DIAGNOSTIC PROCEDURE Preferred Location: [facility] [address] [place] [address] [address] [place] [address] Reason for Visit Reason Comments Follow-up Hospital Follow up Encounter Details Date Type Department Care Team Description 07/13/2019 Office Visit [facility] Al Valiente M D SCHILLING (dyspnea on exertion) (Primary Dx); Cardiology- [address] Chronic heart failure with p reserved ejection fraction; [address] [place] [address] Coronary artery disease involving teller coronary artery of teller heart without angina pectoris; Drive, [address] Essential hypertension; [place] [address] 15 [facility] [address] [phone] Allergies Active Allergy Reactions Severity Noted Date [...] for Nausea and Hyperglycemia Vomiting (N/V). Insulin [place], Use as directed, 1x 100 Each 1 [...] Added automatically from request for lillian renny [id number] Syncope 04/01/2017 Chest pain, rule out acute [...] Chest pain 06/12/2016 Coronary artery disease involving teller coronary briseyda ry of teller heart 06/12/2016 with angina pectoris [place] (myocardial infarction) 06/12/2016 [...] Sign Reading Time Taken Comments Blood Pressure 125/78 07/13/2019 10:58 AM DOOR REPAIRER BUS Pulse 88 07/13/2019 10:58 AM DOOR REPAIRER BUS Temperature - - Respiratory Rate 19 07/13/2019 10:58 AM DOOR REPAIRER BUS Oxygen Saturation 99% 07/13/2019 10:58 AM DOOR REPAIRER BUS Inhaled Oxygen Concentration - - Weight 130.4 kg (287 lb 8 oz) 07/13/2019 10:58 AM DOOR REPAIRER BUS Height 177.8 cm (5' 10") 07/13/2019 10:58 AM DOOR REPAIRER BUS Body Mass Index 41.25 07/13/2019 10:58 AM DOOR REPAIRER BUS documented in this encounter Progress Notes Al Valiente MD - 07/13/2019 11:00 AM CST CARDIOLOGY CLINIC NOTE 07/13/2019 Reason for Referral/Presenting Complaint: hospital follow up PCP: Lilibeth Andrade History of Present Illness: This is a 49 years old male with PMH HFpEF, DM, HTN, obesity, GREGORIO, pAfib, PE, and CAD STEMI in 11/2015 treated with RCA PCI in [facility] in [place]. 2 weeks later he had recurrent chest pain. Repeat LHC showed patent stent with non-obstructive disease elsewhere. He has had intermittent chest pain for which he was started on Imdur without much improvement. Then he was started on ranexa. LHC in 11/2016 showed non-obstructive CAD--no need for intervention. He is on C- PAP for GREGORIO. We have been adjusting his medications for HFpEF. His volume status has been stable. Taking metolazone 1-2 x per week. Currently weight is stable. Had syncope episodes without warning. Event monitor showed 1 episode of wide complex tachycardia at a rate of 140 bpm during dizziness. EP study showed no inducible arrhythmia. ILR significant bradycardia. S/p St Kane dual chamber pacemaker in 09/2018. Has been on warfarin for PE. No bleeding. NO further chest pain. Off Imdur due to low BP. Recently in [facility] for CP and SOB. Normal troponin. EKG no changes. Former tob use for 30 yrs. Review of Systems: General: (-) fever, (-) chills, (-) weight change, (-) dizziness, (+) fatigue Skin: (-) rash HEENT: (-) headache, (-) change in vision Neck: (-) difficulty swallowing Heme: negative Resp: (-) cough, (+) dyspnea on exertion Cardio: (-) chest pain, (+) palpitations, (-) syncope GI: [...] failure) 2-liter fluid restriction; Dr. Valiente is signal operator technical Degenerative disc disease, lumbar on CT scan Diabetes Hernia s/p surgery 06/2016 History of alcohol abuse Stopped 1999 History of pernicious anemia HLD (hyperlipidemia) Hypertension Kidney stones calcium oxalate Lung nodule largest was 7mm on CT scan in 07/2017. smoking history. will need repeat in 6-12 months. AK (myocardial infarction) November 2015, 1 stent in RCA Microcytic anemia low MCV 2017 Right bundle branch block Uveitis Current Medications: Current Outpatient Medications Medication Sig Dispense Refill Insulin Glargine (LANTUS SOLOSTAR U-100 INSULIN) 100 unit/mL (3 mL) injection inject 12-14 Unitsunder the skin daily. 3 mL 0 metOLazone 2.5 mg tablet Take 1 tablet by mouth weekly. 30 tablet 2 ondansetron (ZOFRAN ODT) 4 mg disintegrating tablet Take 1 tablet by mouth every 8 (eight) hoursas needed for Nausea and Vomiting (N/V). 14 tablet 0 cyanocobalamin (VITAMIN B-12) 1,000 mcg/mL injection 1 mL by Intramuscular route every 2 (two) weeks. 12 mL 3 clindamycin 1 % solution Apply to affected area(s) 2 (two) times daily. 60 mL 6 urea 40 % cream Apply to area(s) daily. 198 g 6 ARIPiprazole 10 mg tablet Take 1 tablet by mouth daily. 30 tablet 1 enoxaparin 100 mg/mL injection inject 1.3 mL under the skin daily. 3 Syringe 0 testosterone (ANDROGEL) 20.25 mg/1.25 gram (1.62 %) gel pump Apply 2 Pumps to area(s) daily. 75 g 3 hydrocortisone 2.5 % cream Apply to affected area(s) 2 (two) times daily. If Insurance does notcover the jar then give tubes of cream. 454 g 11 nystatin 100,000 unit/gram powder Apply to area(s) 2 (two) times daily. 60 g 11 ZINC ORAL Take by mouth. Ranolazine 1,000 mg tablet Take 1 tablet by mouth 2 (two) times daily. 60 tablet 4 clonazePAM 1 mg tablet Take 1 pill PO in the AM, 1 PO in the afternoon, 1 pill PO in the evening. May take additional 1 pill as needed acute anxiety. 120 tablet 1 desvenlafaxine succinate (PRISTIQ) 100 mg 24 hr tablet Take 2 tablets by mouth daily. 60 tablet 1 KCL 20 mEq tablet Take 3 tablets by mouth 3 (three) times daily. 180 tablet 2 dulaglutide (TRULICITY) 0.75 mg/0.5 mL PnIj inject 0.75 mg under the skin weekly. 4 Syringe 4 metformin ER 500 mg 24 hr tablet Take 1 tablet by mouth daily with breakfast. 90 tablet 3 allopurinol 300 mg tablet Take 1 tablet by mouth daily. 90 tablet 3 Cholecalciferol, Vitamin D3, (VITAMIN D3) 2,000 unit tablet Take by mouth. polyethylene glycol (MIRALAX) 17 gram/dose powder Take 17 g by mouth daily. 238 g 3 pantoprazole 40 mg EC tablet Take 1 tablet by mouth 2 (two) times daily. 90 tablet 3 ferrous sulfate (IRON) 325 mg (65 mg iron) tablet Take 1 tablet by mouth 3 (three) times daily with meals. 270 tablet 3 aMILoride 5 mg tablet Take 1 tablet by mouth 2 (two) times daily. (Patient taking differently: Take 5 mg by mouth 3 (three) times daily.) 60 tablet 2 warfarin 10 mg tablet [...] by mouth at bedtime. 90 tablet 3 clopidogrel (PLAVIX) 75 mg tablet Take 1 tablet by mouth daily. 90 tablet 3 buprenorphine-naloxone (SUBOXONE) 8-[address] [...] tablets by mouth daily.) 90 tablet 3 pyridoxine HCl, vitamin B6, (VITAMIN B-6 ORAL) Take by mouth. Diclofenac Sodium 1 % gel Take 2-4 grams three times a day as needed for pain 100 g 3 docusate 100 mg capsule Take 1 capsule by mouth 2 (two) times daily as needed for Constipation. (Patient taking differently: Take 100 mg by mouth daily.) 30 capsule 0 Insulin [place], Disposable, (RELION PEN NEEDLES) 32 gauge x 5/32" Ndle Use as directed, 1x daily, DX:E11.9 100 Each 1 PROMETHAZINE 25 mg tablet TAKE 1 TABLET BY MOUTH EVERY SIX HOURS NEEDED FOR NAUSEA OR VOMITING 30 tablet 11 enoxaparin 100 mg/mL injection inject 1 mL under the skin daily. Patient needs to stop warfarin and start taking his Lovenox 5 days before his cardiac procedure 5 Syringe 0 nitroglycerin (NITROSTAT) 0.[address] 1 tablet under the tongue every 5 (five) minutes as needed for Chest pain. 1 Bottle 1 No current facility-administered medications for this visit. [...] file Gets together: Not on file Attends yarsanism service: Not on file Active member of [...] kind Leukemia Maternal Uncle Physical Examination: BP 125/78 (BP Location: Left arm, Patient Position: Sitting, BP CUFF SIZE: Adult Large) | Pulse 88| Resp 19 | Ht 5' 10" (1.778 m) | Wt 287 lb 8 oz (130.4 kg) | SpO2 99% | BMI 41.25 kg/m Constitutional: alert and oriented x 3 (person, place and date/time); no apparent distress, obese ENT: normocephalic atraumatic, supple, no lymphadenopathy, no bruits, no JVD Lungs: clear to auscultation bilaterally Cardiovascular: S1, S2 normal, regular; no murmurs, rubs or gallops GI: soft; non-tender; + distended; normoactive bowel sounds : not examined Musculoskeletal: Extremities: no clubbing, cyanosis, or edema Skin: no rashes Neuro: no focal deficits Cardiovascular testing: EKG: Normal sinus rhythm. RBBB. LAD. Inferior and lateral infarct, age undetermined. 04/21/2018--normal sinus rhythm, RBBB, inferior infarct Echocardiogram: LVEF 60-65% Cardiac Cath: 11/2015--STEMI--RCA PCI with Promus 3.5 [...] stent patent. -Aggressive medical rx for CAD. [facility] 12/2017--No significant stenosis. Nuclear stress test--2016 Partially reversible defect in inferior wall Assessment/Plan: ICD-10-CM ICD-9-CM 1. SCHILLING (dyspnea on exertion) R06.09 786.09 2. Chronic heart failure with preserved ejection fraction I50.32 428.9 3. Coronary artery disease involving teller coronary artery of teller heart without angina pectoris I25.10 414.01 4. Essential hypertension I10 401.9 5. Pacemaker Z95.0 V45.01 SCHILLING--given heavy smoking history, will get PFT to assess COPD. CAD--No further chest pain. Several [facility] showed no significant stenosis. ASA/plavix/lipitor. Off Imdur. On ranexa. Reassurance provided. HFpEF--Maintaining good volume status. Regimen has been optimized. He is comfortable taking care of the dosing per weight changes. On lasix. PRN metolazone. K is low. HF team on board. GREGORIO--On C-PAP. HTN--Off amlodipine. BP is normal. Arrhythmia/syncope--s/p pacemaker for symptomatic bradycardia. Last pacer check showed normal function. PE on warfarin--Continue warfarin. Al Valiente MD, FACC, FACP, VICTORIA Windows Mobile Developer, Division of Cardiology [facility] documented in this encounter Plan of Treatment Date Type Specialty Care Team Description 07/15/2019 Office Visit Psychiatry Osmar Almeida M D [address] [place], [place] [id number] Mendez Martinez MD [address] [place] [address]. [place] [address] 07/16/2019 Nurse Visit Anti-coagulation Clinic Nurse, Vtc Antico ag 07/22/2019 Office Visit Dermatology Kaitlin Dent MD [address] [place] [address] 08/17/2019 Office Visit Internal Medicine Lilibeth Andrade MD [address] [place] [address] [phone] 09/09/2019 Office Visit Internal Medicine Lilibeth Andrade MD 146 [facility] D [place] [address] 15 [phone] 09/28/2019 Office Visit Cardiology Robert Adkins MD [address] [place] [address] [address] [place], [place] [address] [phone] 10/12/2019 Office Visit Internal Medicine Lilibeth Andrade MD 146 [address] [facility] 103 [place], [place] [address] [phone] 10/19/2019 Office Visit Endocrinology Diabetes & Jones, Tre rodriguez MD Metabolism [address] [place] [address] [phone] 10/27/2019 Office Visit Pulmonary Disease Max Aguiar MD 146 [facility] 106 [place], [place] [address] [phone] 11/02/2019 Office Visit Internal Medicine Lilibeth Andrade MD 146 [facility] 103 [place], [place] [address] [phone] 12/02/2019 Appointment Cardiac Electrophysiology Outpt-Simi, Pacemaker/Icd 12/08/2019 Office Visit Ophthalmology Yariel Tineo MD [address] [place] [address] Name Type Priority Associated Diagnoses Order S chedule DIAGNOSTIC PROCEDURE PULMONARY FUNCTION Routine SCHILLING (dyspnea o n Ordered: Preferred Location: LAB exertion) 07/13/19 20 [facility] Health Maintenance Due Date Last Done Comments [...] of this encounter Implants Implanted Type Area Media Consultant Outside Sales Device Shelf Model / Identifier Expiration Serial / Date Lot Prolene Mesh MESH Right: Ethicon 12/20/2020 PMSK / Implanted: Qty: 1 on 07/04/2016 by Alfonso Martinez MD at [facility] Abdom[employer] PMSK / [id number] Pacemaker PACEMAKER Stent-06/24/2016 Implanted: 06/24/2016 (Quantity not on file) documented as of this encounter Results Not on filedocumented in this encounter Visit Diagnoses Diagnosis SCHILLING (dyspnea on exertion) - Primary Other dyspnea and respiratory abnormalit y Chronic heart failure with preserved eje ction fraction Coronary artery disease involving teller coronary artery of teller heart without angina pectoris Essential hypertension Unspecified essential hypertension Pacemaker Cardiac pacemaker in situ documented in this encounter Insurance Payer Benefit Plan / Subscriber ID Effective Phone Address T ype Group Dates [facility] [id number] 2017-Lux [phone] HMO HEALTH [employer] HEALTH [employer] [id number] [place] [address] (Home) [place] [address] documented as of this encounter Advance Directives Name Relationship Healthcare Agent Communication Relationship Keaton Nelson Spouse Primary healthcare agent Elisabeth Soliz Sibling First alternate healthcare agent (Mobile)
--- OUTSIDE RECORDS SUMMARY | 2019-11-07 21:43 | XMS REPORT | Summary of Care ---
:1970 Author Organization [facility] - [facility] Address [address] [place] [address] Care Team Providers Name Role Phone Elmer Andrade MD Primary Care Provider NAVJOT Espinoza Unavailable Unavailable MD Rocco Unavailable Mary Quezada MD Unavailable Genna Anand PARTS INTERPRETER Unavailable Unavailable MD Casimiro Unavailable Ricardo Rodriguez DO Cell Lead Reason for Referral (Routine) Status Reason Specialty Diagnoses / Referred By Referred To Procedures Contact Contact New Request Pulmonary Function Diagnoses SCHILLING (dyspnea on exertion) Al Valiente Technologist Procedures DIAGNOSTIC PROCEDURE Preferred Location: [facility] [address] [place] [address] [address] [place] [address] Reason for Visit Reason Comments Follow-up Hospital Follow up Encounter Details Date Type Department Care Team Description 07/13/[address] [facility] Al Valiente M D SCHILLING (dyspnea on exertion) (Primary Dx); Cardiology- [address] Chronic heart failure with p reserved ejection fraction; [address] [place] [address] Coronary artery disease involving [place] coronary artery of [place] heart without angina pectoris; Drive, [address] Essential hypertension; [place] [address] 15 [facility] [address] [phone] Allergies Active Allergy Reactions Severity Noted Date [...] for Nausea and Hyperglycemia Vomiting (N/V). Insulin [place], Use as directed, 1x 100 Each [...] Added automatically from request for lillian renny [id number] Syncope 04/01/2017 Chest pain, rule out acute [...] 06/12/2016 Coronary artery disease involving [place] coronary briseyda ry of [place] heart 06/12/2016 with angina pectoris [place] (myocardial [...] Comments Blood Pressure 125/78 07/13/2019 10:58 AM CLARIFIER Pulse 88 07/13/2019 10:58 AM CLARIFIER Temperature - - Respiratory Rate 19 07/13/2019 10:58 AM CLARIFIER Oxygen Saturation 99% 07/13/2019 10:58 AM CLARIFIER Inhaled Oxygen Concentration - - Weight 130.4 kg (287 lb 8 oz) 07/13/2019 10:58 AM CLARIFIER Height 177.8 cm (5' 10") 07/13/2019 10:58 AM CLARIFIER Body Mass Index 41.25 07/13/2019 10:58 AM CLARIFIER documented in this encounter Progress Notes Al Valiente MD - 07/13/2019 11:00 AM CST CARDIOLOGY CLINIC NOTE 07/13/2019 Reason for Referral/Presenting Complaint: hospital follow up PCP: Lilibeth Andrade History of Present Illness: This is a 49 years old male with PMH HFpEF, DM, HTN, obesity, GREGORIO, pAfib, PE, and CAD STEMI in 11/2015 treated with RCA PCI in [facility] in [place]. 2 weeks later he had recurrent chest [...] failure) 2-liter fluid restriction; Dr. Valiente is test borer Degenerative disc disease, lumbar on CT scan [...] by mouth daily.) 30 capsule 0 Insulin [place], Disposable, (RELION PEN NEEDLES) 32 gauge x [...] file Gets together: Not on file Attends presybeterian service: Not on file Active member of [...] stent patent. -Aggressive medical rx for CAD. [facility] 12/2017--No significant stenosis. Nuclear stress test--2016 Partially reversible defect in inferior wall Assessment/Plan: ICD-10-CM ICD-9-CM 1. SCHILLING (dyspnea on exertion) R06.09 786.09 2. Chronic heart failure with preserved ejection fraction I50.32 428.9 3. Coronary artery disease involving [place] coronary artery of [place] heart without angina pectoris I25.10 414.01 4. Essential hypertension I10 401.9 5. Pacemaker Z95.0 V45.01 SCHILLING--given heavy smoking history, will get PFT to assess COPD. CAD--No further chest pain. Several [facility] showed no significant stenosis. ASA/plavix/lipitor. Off Imdur. [...] warfarin. Al Valiente MD, FACC, FACP, VICTORIA Safety Advisor, Division of Cardiology [facility] documented in this encounter Plan of Treatment Date Type Specialty Care Team Description 07/15/2019 Office Visit Psychiatry Osmar Almeida M D [address] [place], [place] [phone] Mendez Martinez MD [address] [place] [address]. [place] [address] 07/16/2019 Nurse Visit Anti-coagulation Clinic Nurse, Vtc Antico ag 07/22/2019 Office Visit Dermatology Kaitlin Dent MD [address] [place] [address] 08/17/2019 Office Visit Internal Medicine Lilibeth Andrade MD [address] [place] [address] [phone] 09/09/2019 Office Visit Internal Medicine Lilibeth Andrade MD 146 [facility] [address] [place] [address] 15 [phone] 09/28/2019 Office Visit Cardiology Robert Adkins MD [address] [place] [address] [address] [place], [place] [address] [phone] 10/12/2019 Office Visit Internal Medicine Lilibeth Andrade MD 146 [address] [facility] 103 [place], [place] [address] [phone] 10/19/2019 Office Visit Endocrinology Diabetes & Jones, Tre rodriguez MD Metabolism [address] [place] [address] [phone] 10/27/2019 Office Visit Pulmonary Disease Max Aguiar MD 146 [facility] 106 [place], [place] [address] [phone] 11/02/2019 Office Visit Internal Medicine Lilibeth Andrade MD 146 [facility] 103 [place], [place] [address] [phone] 12/02/2019 Appointment Cardiac Electrophysiology Outpt-Simi, Pacemaker/Icd 12/08/2019 Office Visit Ophthalmology Yariel Tineo MD [address] [place] [address] Name Type Priority Associated Diagnoses [...] of this encounter Implants Implanted Type Area Industrial Illuminating Engineer Device Shelf Model / Identifier Expiration Serial / Date Lot Prolene Mesh MESH Right: Ethicon 12/20/2020 PMSK / Implanted: Qty: 1 on 07/04/2016 by Alfonso Martinez MD at [facility] Abdom[employer] PMSK / [id number] Pacemaker PACEMAKER Stent-06/24/2016 Implanted: 06/24/2016 (Quantity not on file) documented as of this encounter Results Not on filedocumented in this encounter Visit Diagnoses Diagnosis SCHILLING (dyspnea on exertion) - Primary Other dyspnea and respiratory abnormalit y Chronic heart failure with preserved eje ction fraction Coronary artery disease involving [place] coronary artery of [place] heart without angina pectoris Essential hypertension Unspecified essential hypertension Pacemaker Cardiac pacemaker in situ documented in this encounter Insurance Payer Benefit Plan / Subscriber ID Effective Phone Address T ype Group Dates [facility] [id number] 2017-Lux [phone] HMO HEALTH [employer] HEALTH [employer] [phone] [place] [address] (Home) [place] [address] documented as of this encounter Advance Directives Name Relationship Healthcare Agent Communication Relationship Keaton Nelson Spouse Primary healthcare agent Elisabeth Soliz Sibling First alternate healthcare [phone] agent (Mobile)
--- OUTSIDE RECORDS SUMMARY | 2019-11-07 21:44 | XMS REPORT | Summary of Care ---
:1970 Author Organization [facility] - Health Address [address] [place] [address] Care Team Providers Name Role Phone Elmer Andrade MD Primary Care Provider NAVJOT Espinoza Unavailable Unavailable MD Rocco Unavailable Mary Quezada MD Unavailable Genna Anand Unavailable Unavailable MD Casimiro Unavailable Ricardo Rodriguez DO Director Of Quality Encounter Details Date Type Department Care Team Description 07/07/2019 Orders Only [facility] Doctor Unassigned, No [address] [facility] [place] [address] [address] [place] [id number] Allergies Active Allergy Reactions Severity Noted Date [...] as of this encounter (statuses as of 07/14/2019) Medications Medication Sig Dispensed Refills Start Date [...] for Nausea and Hyperglycemia Vomiting (N/V). Insulin [place], Use as directed, 1x 100 Each 1 [...] as of this encounter (statuses as of 07/14/2019) Active Problems Problem Noted Date SOB (shortness [...] Added automatically from request for lillian lawson [id number] Syncope 04/01/2017 Chest pain, rule out acute [...] Chest pain 06/12/2016 Coronary artery disease involving [place] coronary briseyda ry of [place] heart 06/12/2016 with angina pectoris [place] (myocardial infarction) 06/12/2016 Type 2 diabetes mellitus without complication 06/12/20 16 Essential hypertension 06/12/2016 History of alcohol abuse Overview: Sober for 16 years documented as of this encounter (statuses as of 07/14/2019) Resolved Problems Problem Noted Date Resolved Date Chest pain radiating to arm 08/08/2016 08/19/2016 Abdominal pain 07/19/2016 08/19/2016 History of epidural anesthesia 07/04/2016 7 Morbid obesity with body mass index of 50 or higher 06/26/19 17 08/19/2016 Obesity (BMI 30-39.9) 06/12/2016 08/19/2016 documented as of this encounter (statuses as of 07/14/2019) Immunizations Name Administration Dates Next Due Td 06/26/2017, 03/19/2015 documented as of this encounter Social History Tobacco Use Types Packs/Day Years Used Date Former Smoker Cigarettes 30 Quit: 06/26/19 15 Smokeless Tobacco: Never [...] Visit Psychiatry Osmar Almeida M D [address] [place], [place] [address] Mendez Martinez MD [address] [place] [address]. [place] [address] 07/16/2019 Nurse Visit Anti-coagulation Clinic Nurse, Msc Antico ag 07/22/2019 Office Visit Dermatology Kaitlin Dent MD [address] [place] [phone] 08/17/2019 Office Visit Internal Medicine Lilibeth Andrade MD [address] [place] [address] 775 15 [phone] 09/09/2019 Office Visit Internal Medicine Lilibeth Andrade MD [address] [place] [address] 775 15 09/28/2019 Office Visit Cardiology Robert Adkins MD 301 [facility] [address] [place], [place] [address] 10/12/2019 Office Visit Internal Medicine Lilibeth Andrade MD [address] 775 15 [phone] 10/19/2019 Office Visit Endocrinology Diabetes & JonesTre MD Metabolism 2660 [place] [address] [phone] 10/27/2019 Office Visit Pulmonary Disease Max Aguiar MD 146 [facility] 106 [place], [place] [address] [phone] 11/02/2019 Office Visit Internal Medicine Lilibeth Andrade MD 146 [facility] 103 [place], [place] [address] [phone] 12/02/2019 Appointment Cardiac Electrophysiology Outpt-Simi, Pacemaker/Icd 12/08/2019 Office Visit Ophthalmology Yariel Tineo MD [address] [place] [address]. [place], [place] [address] Health Maintenance Due Date [...] of this encounter Implants Implanted Type Area Prototype Machine Operator Device Shelf Model / Identifier Expiration Serial / Date Lot Prolene Mesh MESH Right: Ethicon 12/20/2020 PMSK / Implanted: Qty: 1 on 07/04/2016 by Alfonso Martinez MD at [facility] [employer] PMSK / [id number] Pacemaker PACEMAKER Stent-06/24/2016 Implanted: 06/24/2016 (Quantity not on file) documented as of this encounter Procedures Procedure Name Priority Date/Time Associated Diagnosis Comme nts AGREEMENTS AUTHORIZATIONS Routine 07/07/2019 12:01 AM AND IRREVOCABLE ORACLE DATABASE DEVELOPER ASSIGNMENTS (FORM 2000) documented in this encounter Results Not on filedocumented in this encounter Insurance Payer Benefit Plan / Subscriber ID Effective Phone Address T e Group Dates HIM [facility] [id number] 2017-Lux [phone] [address] [employer]BA [employer] [facility] [employer] [phone] [place] [address] documented as of this encounter Advance Directives Name Relationship Healthcare Agent Communication Relationship Pandagutierrez Leslie Spouse Primary healthcare agent Elisabeth Soliz Sibling First alternate healthcare agent (Mobile)
--- OUTSIDE RECORDS SUMMARY | 2019-11-07 21:45 | XMS REPORT | Summary of Care ---
:1970 Author Organization [facility] Address [address] [place] [address] Care Team Providers Name Role Phone Elmer Andrade MD Primary Care Provider NAVJOT Espinoza Unavailable Unavailable MD Rocco Unavailable Mary Quezada MD Unavailable Genna Anand Unavailable Unavailable MD Casimiro Unavailable Ricardo Rodriguez DO Crop Duster Helper Reason for Visit Reason Comments Results Encounter Details Date Type Department Care Team Description 07/05/2019 Telephone [facility] Cardiology, Robert Adkins, Results [facility] 250 [facility] 410 301 [facility] AI7821 [place] [address] [place], [place] [address] Allergies Active Allergy Reactions Severity Noted Date [...] for Nausea Hyperglycemia and Vomiting (N/V). Insulin [place], Use as directed, 100 Each 1 06/25/2019 [...] Added automatically from request for lillian lawson [id number] Syncope 04/01/2017 Chest pain, rule out acute [...] Chest pain 06/12/2016 Coronary artery disease involving [place] coronary briseyda ry of [place] heart 06/12/2016 with angina pectoris MT (myocardial [...] Visit Psychiatry Osmar Almeida M D 400 [place], [place] [phone] Mendez Martinez MD [address] [place] [address]. [place] [address] 07/16/2019 Nurse Visit Anti-coagulation Clinic Nurse, Dec Antico ag 07/22/2019 Office Visit Dermatology Kaitlin Dent MD [address] [place] [phone] 08/17/2019 Office Visit Internal Medicine Lilibeth Andrade MD [address] 775 15 [phone] 09/09/2019 Office Visit Internal Medicine Lilibeth Andrade MD [address] 775 15 [phone] 09/28/2019 Office Visit Cardiology Robert Adkins MD 301 [facility] [address] [place], [place] [address] 10/12/2019 Office Visit Internal Medicine Lilibeth Andrade MD [address] 775 15 [phone] 10/19/2019 Office Visit Endocrinology Diabetes & Jones, Tre rodriguez MD Metabolism 2660 [place] [address] [phone] 10/27/2019 Office Visit Pulmonary Disease Max Aguiar MD 146 [facility] 106 [place], [place] [address] [phone] 11/02/2019 Office Visit Internal Medicine Lilibeth Andrade MD 146 [facility] 103 [place], [place] [address] [phone] 12/02/2019 Appointment Cardiac Electrophysiology Outpt-Simi, Pacemaker/Icd 12/08/2019 Office Visit Ophthalmology Yariel Tineo MD [address] [place] [address] 77 [address] Name Type Priority Associated Diagnoses Order S chedule BASIC METABOLIC PANEL LAB LIVIA Hypopotassemia 1 Oc currences starting (NA, K, CL, CO2, 07/06/2019 until GLUCOSE, BUN, 07/06/2020 CREATININE, CA) BASIC METABOLIC PANEL LAB Routine Hypopotass emia 1 Occurrences starting (NA, K, CL, CO2, Chronic diastolic CHF until GLUCOSE, BUN, (congestive heart failure) 07/14/2020 CREATININE, CA) Health Maintenance Due Date Last [...] of this encounter Implants Implanted Type Area Manual Qa Tester Device Shelf Model / Identifier Expiration Serial / Date Lot Prolene Mesh MESH Right: Ethicon 12/20/2020 PMSK / Implanted: Qty: 1 on 07/04/2016 by Alfonso Martinez MD at [facility] [place] Abdomen [employer] PMSK / [id number] Pacemaker PACEMAKER Stent-06/24/2016 Implanted: 06/24/2016 (Quantity not on file) documented as of this encounter Results BASIC METABOLIC PANEL (NA, K, CL, CO2, GLUCOSE, BUN, CREATININE, CA) (07/13/2019 11:54 AM PLANNING MANAGEMENT IT SPECIALIST) Pathologist [facility] nature NA 137 135 - 145 [facility] mmol/L [facility] K 4.1 3.5 - 5.0 [facility] mmol/L [facility] CL 99 98 - 108 mmol/L [facility] CO2 TOTAL 32 (H) 23 - 31 mmol/L [facility] AGAP 6 2 - 16 [facility] BUN 17 7 - 23 mg/dL [facility] GLUCOSE 154 (H) 70 - 110 mg/dL [facility] CREATININE 1.10 0.60 - 1.25 [facility] mg/dL [facility] CALCIUM 9.4 8.6 - 10.6 [facility] mg/dL [facility] eGFR Calculation 70.9 mL/min/1.73m2 [facility] (Non-[facility] HOSPITAL LABORATORY Venezuelan) eGFR Calculation 85.9 mL/min/1.73m2 [facility] () [facility] Specimen Blood Narrative Performed At Association of Glomerular Filtration Rate (GFR) [facility] and Staging of Kidney Disease* [...] Address City/State/Zipcode Phone Number [facility] CLIA: [id number], [address] [place], [place] [address] BASIC METABOLIC PANEL (NA, K, CL, CO2, GLUCOSE, BUN, CREATININE, [place]) (07/07/2019 8:16 AM PLANNING MANAGEMENT IT SPECIALIST) Pathologist Sig nature NA 133 (L) 135 - 145 [facility] mmol/L [facility] K 3.6 3.5 - 5.0 [facility] mmol/L [facility] CL 91 (L) 98 - 108 mmol/L [facility] CO2 TOTAL 33 (H) 23 - 31 mmol/L [facility] AGAP 9 2 - 16 [facility] BUN 20 7 - 23 mg/dL [facility] GLUCOSE 180 (H) 70 - 110 mg/dL [facility] CREATININE 1.11 0.60 - 1.25 [facility] mg/dL [facility] CALCIUM 10.1 8.6 - 10.6 [facility] mg/dL [facility] eGFR Calculation 70.1 mL/min/1.73m2 [facility] (Non-[facility] LABORATORY Venezuelan) eGFR Calculation 85.0 mL/min/1.73m2 [facility] () [facility] Specimen Blood Narrative Performed At [facility] of Glomerular Filtration Rate (GFR) [facility] and Staging of Kidney Disease* [...] Address City/State/Zipcode Phone Number [facility] CLIA: [id number], [address] [place] [address] [address] [facility] [address] documented in this encounter Visit Diagnoses Diagnosis Hypopotassemia - Primary Chronic diastolic CHF (congestive heart failure) documented in this encounter Insurance Payer Benefit Plan / Subscriber ID Effective Phone Address T janae Group Dates [facility] [id number] 2017-Lux [phone] [address] [employer] [facility] [employer] HEALTH CHOICE 86 [phone] [place] [address] documented as of this encounter Advance Directives Name Relationship Healthcare Agent Communication Relationship Keaton Nelson Spouse Primary healthcare agent Elisabeth Soliz Sibling First alternate healthcare [phone] agent (Mobile)
--- OUTSIDE RECORDS SUMMARY | 2019-11-07 21:45 | XMS REPORT | Summary of Care ---
:1970 Author Organization [facility] Address [address] [place] [address] Care Team Providers Name Role Phone Elmer Andrade MD Primary Care Provider NAVJOT Espinoza Unavailable Unavailable MD Rocco Unavailable Mary Quezada MD Unavailable Genna Anand Unavailable Unavailable MD Casimiro Unavailable Ricardo Rodriguez DO Helicopter Specialist Reason for Visit Reason Comments Medication Dose Change Encounter Details Date Type Department Care Team Description 07/14/2019 Telephone [facility] Cardiology- Robert Adkins edication Dose Change [place] [address] [facility] [address] [facility] [address] [place] [address] Allergies Active Allergy Reactions Severity Noted Date [...] for Nausea Hyperglycemia and Vomiting (N/V). Insulin [place], Use as directed, 100 Each 1 06/25/2019 Active Disposable, (RELION 1x daily, DX:E11.9 PEN NEEDLES) 32 gauge x 5/32" Ndle Insulin Glargine inject 12-14 Units 3 mL 0 07/07/2019 Active (LANTUS SOLOSTAR under the skin U-100 INSULIN) 100 daily. unit/mL (3 mL) injection metOLazone 2.5 mg Take 1 tablet by 10 tablet 2 07/15/2019 Active tabletIndications: mouth 2 (two) Vitamin B12 times weekly on deficiency Friday and . metOLazone 2.5 mg Take 1 tablet by 30 tablet 2 07/06/201906/24 2 Discontinued tabletIndications: mouth weekly (Reorder) Vitamin B12 deficiency documented as of this encounter [...] Added automatically from request for lillian lawson [id number] Syncope 04/01/2017 Chest pain, rule out acute [...] 06/12/2016 Coronary artery disease involving [place] coronary briseyda ry of [place] heart 06/12/2016 with angina pectoris [place] (myocardial infarction) 06/12/2016 [...] Visit Psychiatry Osmar Almeida M D 400 [place] [address] [phone] Mendez Martinez MD [address] [place] [address]. [place] [address] 07/16/2019 Nurse Visit Anti-coagulation Clinic Nurse, Vtc Antico ag 07/22/2019 Office Visit Dermatology Kaitlin Dent MD [address] [place] [phone] 08/17/2019 Office Visit Internal Medicine Lilibeth Andrade MD [address] 775 15 [phone] 09/09/2019 Office Visit Internal Medicine Lilibeth Andrade MD [address] 775 15 [phone] 09/28/2019 Office Visit Cardiology Robert Adkins MD [address] [place], [place] [address] 10/12/2019 Office Visit Internal Medicine Lilibeth Andrade MD 146 [facility] 103 [place], [place] [address] [phone] 10/19/2019 Office Visit Endocrinology Diabetes & Jones, Tre rodriguez MD Metabolism 2660 [place] [address] [phone] 10/27/2019 Office Visit Pulmonary Disease Max Aguiar MD 146 [facility] 106 [place], [place] [address] [phone] 11/02/2019 Office Visit Internal Medicine Lilibeth Andrade MD 146 [facility] 103 [place], [place] [address] [phone] 12/02/2019 Appointment Cardiac Electrophysiology Outpt-Simi, Pacemaker/Icd 12/08/2019 Office Visit Ophthalmology Yariel Tineo MD [address] [place] [address]. [place], [place] [address] Health Maintenance Due Date [...] of this encounter Implants Implanted Type Area Electroplating Worker Device Shelf Model / Identifier Expiration Serial / Date Lot Prolene Mesh MESH Right: Ethicon 12/20/2020 PMSK / Implanted: Qty: 1 on 07/04/2016 by Alfonso Martinez MD at [facility] Abdomen Incorporated PMSK / [id number] Pacemaker PACEMAKER Stent-06/24/2016 Implanted: 06/24/2016 (Quantity not on file) documented as of this encounter Results Not on filedocumented in this encounter Visit Diagnoses Diagnosis Vitamin B12 deficiency Other B-complex deficiencies documented in this encounter Insurance Payer Benefit Plan / Subscriber ID Effective Phone Address T e Group Dates [facility] [id number] 2017-Lux [phone] [address] [employer] [facility] [employer] HEALTH [employer] [id number] [id number] [place] [address] documented as of this encounter Advance Directives Name Relationship Healthcare Agent Communication Relationship Keaton Thomasjanae Spouse Primary healthcare agent Elisabeth Soliz Sibling First alternate healthcare [phone] agent (Mobile)
--- OUTSIDE RECORDS SUMMARY | 2019-11-07 21:46 | XMS REPORT | Summary of Care ---
:1970 Author Organization [facility] Address [address] [place] [address] Care Team Providers Name Role Phone Elmer Andrade MD Primary Care Provider NAVJOT Espinoza Unavailable Unavailable MD Rocco Unavailable Mary Quezada MD Unavailable Genna Anand CASING MACHINE OPERATOR Unavailable Unavailable MD Casimiro Unavailable Ricardo Rodriguez DO Snorkelling Instructor Reason for Visit Reason Comments Refill Request Encounter Details Date Type Department Care Team Description 07/16/[address] [facility] Klaus Mccarty MD Refill Request [facility]astroenterology-[facility] [place] [address] [place] [address] [place] [phone] Allergies Active Allergy Reactions Severity Noted Date [...] as of this encounter (statuses as of 07/16/2019) Medications Medication Sig Dispensed Refills Start Date [...] for Nausea and Hyperglycemia Vomiting (N/V). Insulin [place], Use as directed, 1x 100 Each 1 [...] as of this encounter (statuses as of 07/16/2019) Active Problems Problem Noted Date SOB (shortness [...] Added automatically from request for lillian renny [id number] Syncope 04/01/2017 Chest pain, rule out acute [...] Chest pain 06/12/2016 Coronary artery disease involving [place] coronary briseyda ry of [place] heart 06/12/2016 with angina pectoris SD (myocardial infarction) 06/12/2016 Type 2 diabetes mellitus without complication 06/12/20 16 Essential hypertension 06/12/2016 History of alcohol abuse Overview: Sober for 16 years documented as of this encounter (statuses as of 07/16/2019) Resolved Problems Problem Noted Date Resolved Date Chest pain radiating to arm 08/08/2016 08/19/2016 Abdominal pain 07/19/2016 08/19/2016 History of epidural anesthesia 07/04/2016 7 Morbid obesity with body mass index of 50 or higher 06/26/19 17 08/19/2016 Obesity (BMI 30-39.9) 06/12/2016 08/19/2016 documented as of this encounter (statuses as of 07/16/2019) Immunizations Name Administration Dates Next Due Td [...] Treatment Date Type Specialty Care Team Description 07/22/2019 Office Visit Dermatology Kaitlin Dent MD 301 [place] [phone] 08/13/2019 Nurse Visit Anti-coagulation Clinic Nurse, Vtc Antico ag 08/17/2019 Office Visit Internal Medicine Lilibeth Andrade MD [address] 7[address] 08/19/2019 Office Visit Psychiatry Mendez Martinez MD [address] [place] [address]. [place] [phone] 09/09/2019 Office Visit Internal Medicine Lilibeth Andrade MD 146 [facility] D [address] 773 [address] [phone] 09/28/2019 Office Visit Cardiology Robert Adkins MD 301 [facility] RT[address] 570 [place], [place] [address] 10/12/2019 Office Visit Internal Medicine Lilibeth Andrade MD 146 [facility] [address] 778 [address] [phone] 10/19/2019 Office Visit Endocrinology Diabetes & Jones, Tre rodriguez MD Metabolism 2660 [place] [address] [phone] 10/27/2019 Office Visit Pulmonary Disease Max Aguiar MD 146 [facility] 106 [place], [place] [address] 11/02/2019 Office Visit Internal Medicine Lilibeth Andrade MD 146 [facility] 103 [place], [place] [address] [phone] 12/02/2019 Appointment Cardiac Electrophysiology Outpt-Simi, Pacemaker/Icd 12/08/2019 Office Visit Ophthalmology Yariel Tineo MD [address] [place] [address]. [place], [place] [address] Health Maintenance Due Date [...] of this encounter Implants Implanted Type Area Sorting Livestock Worker Device Shelf Model / Identifier Expiration Serial / Date Lot Prolene Mesh MESH Right: Ethicon 12/20/2020 PMSK / Implanted: Qty: 1 on 07/04/2016 by Alfonso Martinez MD at [facility] Abdomen Incorporated PMSK / [id number] Pacemaker PACEMAKER Stent-06/24/2016 Implanted: 06/24/2016 (Quantity not on file) documented as of this encounter Results Not on filedocumented in this encounter Insurance Payer Benefit Plan / Subscriber ID Effective Phone Address T [facility] Group Dates HIM [facility] [id number] 2017-Lux [phone] [address] [employer] [facility] [employer] HEALTH CHOICE [phone] [place] [address] documented as of this encounter Advance Directives Name Relationship Healthcare Agent Communication Relationship Keaton Nelson Spouse Primary healthcare agent Elisabeth Soliz Sibling First alternate healthcare agent (Mobile)
--- OUTSIDE RECORDS SUMMARY | 2019-11-07 21:47 | XMS REPORT | Summary of Care ---
:1970 Author Organization [facility] Address [address] [place] [address] Care Team Providers Name Role Phone Elmer Andrade MD Primary Care Provider NAVJOT Espinoza Unavailable Unavailable MD Rocco Unavailable Mary Quezada MD Unavailable Genna Anand RAND BUTTING MACHINE OPERATOR Unavailable Unavailable MD Casimiro Unavailable Ricardo Rodriguez DO Application Support Developer Reason for Referral (Routine) Status Reason Specialty Diagnoses / Referred By Referred To Procedures Contact Contact New Request Dietary and Diagnoses Type 2 diabetes mellitus without complication, with long-term current use of insulin Lupe, Nutritional Procedures CONSULT/REFERRAL NUTRITION Lilibeth Payne MD Service [address] [place] [address] [facility] 103 [place] [address] Reason for Visit Reason Comments Follow-up 1 month follow up visit Encounter Details Date Type Department Care Team Description 07/06/2019 Office Visit [facility] Pediatric Dennis Andrade B12 deficiency (Primary Dx); and Adult Primary Johana Nguyen Fluid retention; [facility]- [address] Left foot pain; [address] [place] [address], [facility] 103 Dry skin; [address] [place] [id number] Type 2 diabetes mellitus without complic ation, with long-term current use of insulin [place], [place] [phone] [address] [phone] Allergies Active Allergy Reactions Severity Noted Date [...] as of this encounter (statuses as of 07/18/2019) Medications Medication Sig Dispensed Refills Start Date [...] times daily. diastolic congestive heart failure, Hypopotassemia Ranolazine 1,000 mg Take 1 tablet by [...] injectionIndications (two) weeks. : Vitamin B12 deficiency clindamycin 1 % Apply [...] for Nausea Hyperglycemia and Vomiting (N/V). Insulin [place], Use as directed, 100 Each 1 06/25/2019 Active Disposable, (RELION 1x daily, DX:E11.9 PEN NEEDLES) 32 gauge x 5/32" Ndle clonazePAM 1 mg Take 1 pill PO in 120 tablet 1 04/08/201906/24 3 Discontinued tabletIndications: the AM, 1 PO in (Reorder) Generalized anxiety the afternoon, 1 disorder, Panic pill PO in the disorder without evening. May take agoraphobia additional 1 pill as needed acute anxiety. desvenlafaxine Take 2 tablets by 60 tablet 1 04/08/201907/15 Discontinued succinate (PRISTIQ) mouth daily. (Reorder) 100 mg 24 hr tabletIndications: Severe episode of recurrent major depressive disorder, without psychotic features, Generalized anxiety disorder metOLazone 2.5 mg Take 1 tablet by 8 tablet 0 06/05/201906/23 4 Discontinued tabletIndications: mouth weekly. (Reorder) Vitamin B12 deficiency ARIPiprazole 10 mg Take 1 tablet by 30 tablet 1 06/10/2019 Discontinued tabletIndications: mouth daily. (Reorder) Generalized anxiety disorder, Panic disorder without agoraphobia, Severe episode of recurrent major depressive disorder, without psychotic features Insulin Glargine inject 10 Units 3 mL 0 06/25/201907/07 Discontinued (LANTUS SOLOSTAR under the skin /2019 (Dose adjustment) U-100 INSULIN) 100 daily. unit/mL (3 mL) injection insulin glargine 100 inject 20 Units 0 Discontinued unit/mL injection under the skin. metOLazone 2.5 mg Take 1 tablet by 30 tablet 2 07/06/201906/24 2 Discontinued tabletIndications: mouth weekly. (Reorder) Vitamin B12 deficiency documented as of this encounter (statuses as of 07/18/2019) Active Problems Problem Noted Date SOB (shortness [...] Added automatically from request for lillian lawson [id number] Syncope 04/01/2017 Chest pain, rule out acute [...] Chest pain 06/12/2016 Coronary artery disease involving [place] coronary briseyda ry of [place] heart 06/12/2016 with angina pectoris [place] (myocardial infarction) 06/12/2016 Type 2 diabetes mellitus without complication 06/12/20 16 Essential hypertension 06/12/2016 History of alcohol abuse Overview: Sober for 16 years documented as of this encounter (statuses as of 07/18/2019) Resolved Problems Problem Noted Date Resolved Date Chest pain radiating to arm 08/08/2016 08/19/2016 Abdominal pain 07/19/2016 08/19/2016 History of epidural anesthesia 07/04/2016 7 Morbid obesity with body mass index of 50 or higher 06/26/19 17 08/19/2016 Obesity (BMI 30-39.9) 06/12/2016 08/19/2016 documented as of this encounter (statuses as of 07/18/2019) Immunizations Name Administration Dates Next Due Td [...] Sign Reading Time Taken Comments Blood Pressure 117/71 07/06/2019 1:18 PM CONSTRUCTION DRILLER Pulse 83 07/06/2019 1:18 PM CONSTRUCTION DRILLER Temperature 36.7 C (98 F) 07/06/2019 1:18 PM CONSTRUCTION DRILLER Respiratory Rate 18 07/06/2019 1:18 PM CONSTRUCTION DRILLER Oxygen Saturation 97% 07/06/2019 1:18 PM CONSTRUCTION DRILLER Inhaled Oxygen Concentration - - Weight 134.4 kg (296 lb 4.8 oz) 07/06/2019 1:18 PM CONSTRUCTION DRILLER Height 177.8 cm (5' 10") 07/06/2019 1:18 PM CONSTRUCTION DRILLER Body Mass Index 42.51 07/06/2019 1:18 PM CONSTRUCTION DRILLER documented in this encounter Patient Instructions Patient InstructionsShelia Pulliam - 07/06/2019 1:40 PM CSTLook up and his polyphenol blend "Vital Reds". He has a lot of good information on heart disease. You can go to [email or web address] And [email or web address]/ You can try episome salt baths or magnesium oil. l-carnitine and CoQ10. You can find a combination pill at [facility]. Look up foods high in omega 3. [place] 3 can help fight inflammation and omega 6 cause inflammation. Work on increasing omega 3 and decreasing omega 6 in diet. Try to AVOID anything containing peanut oil, sunflower oil and saffron oil. Canola oil seems to be better. TRUCTION DRILLER documented in this encounter Progress Notes Lilibeth Andrade MD - 07/06/2019 1:40 PM CST DOS: 07/06/2019 CC: Follow up of chronic conditions HPI: John Paul Nelson is a 49 year old male with history including has a past medical history of AAA (abdominal aortic aneurysm), Anxiety, CHF (congestive heart failure), Degenerative disc disease, lumbar, Diabetes, Hernia, History of alcohol abuse, History of pernicious anemia, HLD (hyperlipidemia), Hypertension, Kidney stones, Lung nodule, PR (myocardial infarction), Microcytic anemia, Right bundle branch block, and Uveitis. who is being seen today for follow up of chronic conditions. states the dry flaky skin on his arms improved with vaseline. He was told it was just skinthat needed to be exfoliated. states he went to the ED on 06/23/19 for high blood sugars, unsure why. He follows with endocrinetomorrow. states it's hard to find foods that he can eat. Patient states he has some fluid retention today. He states this happens every time he eats cheese. Patient states he sometimes has pain to the bottom on his left foot. He has not tried voltaren gel but he has some at home. Patient has hypertension. BPs range 120s-130s with a pulse in the 90s. 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 Patient states he hasn't had one in years. Medications reviewed in EPIC, past medical history and social history and allergies reviewed. Review of Systems Cardiovascular: + fluid retention Skin: + dry skin Neurological: Negative for headaches. PE: Blood pressure 117/71, pulse 83, temperature 36.7 C (98 F), temperature source Skin, resp. rate 18, height 5' 10" (1.778 m), weight 296 lb 4.8 oz (134.4 kg), SpO2 97 %. Physical Exam Constitutional: [...] to person, place, and time. No tremors. Walks with a cane Skin: Skin is warm and dry. He [...] prevention. A/P: John Paul Nelson is a 49 year old male with history including has a past medical history of AAA (abdominal aortic aneurysm), Anxiety, CHF (congestive heart failure), Degenerative disc disease, lumbar, Diabetes, Hernia, History of alcohol abuse, History of pernicious anemia, HLD (hyperlipidemia), Hypertension, Kidney stones, Lung nodule, PR (myocardial infarction), Microcytic anemia, Right bundle branch block, and Uveitis. who is being seen today for chronic medical conditions. Vitamin B12 deficiency (primary encounter diagnosis) Comment: needs refill. Plan: metOLazone 2.5 mg tablet Fluid retention Comment: patient reports some fluid retention. Plan: patient will stay on the metolazone. Left foot pain Comment: patient complains of pain to the bottom of the left foot Plan: discussed with patient to try voltaren gel Dry skin Comment: vaseline helps. Plan: continue following with dermatology. Type 2 diabetes mellitus without complication, with long-term current use of insulin Comment: he had an episode where his sugars spiked and got up to 300 Plan: patient will follow with endocrine. Return for Keep next appointment. Plan of care, desired health behaviors, goals,& [...] performed the services described here-in. Shelia Pulliam, July 06, 2019, 2:15 PM Physician's Attestation I, Lilibeth Andrade MD, personally performed the services described in this documentation , asscribed by, hSelia Pulliam in my presence and it is both accurate and complete. Lilibeth Andrade MD July 18, 2019, 6:53 PM TRUCTION DRILLER documented in this encounter Plan of Treatment Date Type Specialty Care Team Description 07/22/2019 Cray Fishing Hand Visit Pulmonary Function Han Arnold Technsuleiman Silva MD 301 [facility] [address] [place], [place] [address] 07/22/2019 Office Visit Dermatology Kaitlin Dent MD 301 [place] [address] 08/13/2019 Nurse Visit Anti-coagulation Clinic Nurse, Vtc Antico ag 08/17/2019 Office Visit Internal Medicine Lilbieth Andrade MD [address] 775 [address] [phone] 08/19/2019 Office Visit Psychiatry Mendez Martinez MD [address] [place] [address]. [place] [address] [phone] 09/09/2019 Office Visit Internal Medicine Lilibeth Andrade MD [address] [place] [address] 775 15 09/28/2019 Office Visit Cardiology Robert Adkins MD [address] [place] [address] [address] [place], [place] [address] 10/12/2019 Office Visit Internal Medicine Lilibeth Andrade MD [address] [place] [address] 15 10/19/2019 Office Visit Endocrinology Diabetes & JonesTre MD Metabolism 2660 [place], [place] 3916[address] 10/27/2019 Office Visit Pulmonary Disease Max Aguiar MD [address] [place] [address] 775 15 11/02/2019 Office Visit Internal Medicine Lilibeth Andrade MD [address] [place] [address] 15 12/02/2019 Appointment Cardiac Electrophysiology Outpt-Simi, Pacemaker/Icd 12/08/2019 Office Visit Ophthalmology Yariel Tineo MD [address] [place] [address]. [place], [place] [address] Health Maintenance Due Date [...] of this encounter Implants Implanted Type Area Technical Inspector Device Shelf Model / Identifier Expiration Serial / Date Lot Prolene Mesh MESH Right: Ethicon 12/20/2020 PMSK / Implanted: Qty: 1 on 07/04/2016 by Alfonso Martinez MD at [facility] Abdomen [employer]orporated PMSK / [id number] Pacemaker PACEMAKER Stent-06/24/2016 Implanted: 06/24/2016 (Quantity not on file) documented as of this encounter Results Not on filedocumented in this encounter Visit Diagnoses Diagnosis Vitamin B12 deficiency - Primary Other B-complex deficiencies Fluid retention Other fluid overload Left foot pain Pain in limb Dry skin Other symptoms involving skin and integu mentary tissues Type 2 diabetes mellitus without complic ation, with long-term current use of insulin documented in this encounter Insurance Payer Benefit Plan / Subscriber ID Effective Phone Address T e Group Dates [facility] [id number] 2017-Prese [phone] [address] Simplicissimus Book FarmO Al[employer] nt [phone] [place] [address] (Home) [place] [address] documented as of this encounter Advance Directives Name Relationship Healthcare Agent Communication Relationship Keaton Nelson Spouse Primary healthcare agent Elisabeth Soliz Sibling First [facility] healthcare [phone] agent (Mobile)
--- OUTSIDE RECORDS SUMMARY | 2019-11-07 21:48 | XMS REPORT | Summary of Care ---
:1970 Author Organization [facility] Address [address] [place] [address] Care Team Providers Name Role Phone Elmer Andrade MD Primary Care Provider NAVJOT Espinoza Unavailable Unavailable MD Rocco Unavailable Mary Quezada MD Unavailable Genna Anand MEAT INSPECTOR Unavailable Unavailable MD Casimiro Unavailable Ricardo Rodriguez DO C 40A Crew Chief Reason for Referral (Routine) Status Reason Specialty Diagnoses / Referred By Referred To Procedures Contact Contact New Request Dietary and Diagnoses Type 2 diabetes mellitus without complication, with long-term current use of insulin Lupe, Nutritional Procedures CONSULT/REFERRAL NUTRITION Lilibeth Payne MD Service [address] [place] [address] [facility] 103 [place] [address] Reason for Visit Reason Comments Follow-up 1 month follow up visit Encounter Details Date Type Department Care Team Description 07/06/2019 Office Visit [facility] Pediatric Dennis Andrade B12 deficiency (Primary Dx); and Adult Primary Johana Nguyen Fluid retention; [facility]- [address] Left foot pain; [address] [place] [address], [facility] 103 Dry skin; [address] [place] [phone] Type 2 diabetes mellitus without complic ation, with long-term current use of insulin [place], [place] [phone] [phone] Allergies Active Allergy Reactions Severity Noted Date [...] for Nausea Hyperglycemia and Vomiting (N/V). Insulin [place], Use as directed, 100 Each 1 06/25/2019 [...] Added automatically from request for lillian lawson [id number] Syncope 04/01/2017 Chest pain, rule out acute [...] Chest pain 06/12/2016 Coronary artery disease involving [place] coronary briseyda ry of [place] heart 06/12/2016 with angina pectoris [place] (myocardial infarction) 06/12/2016 [...] Comments Blood Pressure 117/71 07/06/2019 1:18 PM CHIEF OF PRODUCTION Pulse 83 07/06/2019 1:18 PM CHIEF OF PRODUCTION Temperature 36.7 C (98 F) 07/06/2019 1:18 PM CHIEF OF PRODUCTION Respiratory Rate 18 07/06/2019 1:18 PM CHIEF OF PRODUCTION Oxygen Saturation 97% 07/06/2019 1:18 PM CHIEF OF PRODUCTION Inhaled Oxygen Concentration - - Weight 134.4 kg (296 lb 4.8 oz) 07/06/2019 1:18 PM CHIEF OF PRODUCTION Height 177.8 cm (5' 10") 07/06/2019 1:18 PM CHIEF OF PRODUCTION Body Mass Index 42.51 07/06/2019 1:18 PM CHIEF OF PRODUCTION documented in this encounter Patient Instructions Patient InstructionsShelia Pulliam - 07/06/2019 1:40 PM CSTLook up and his polyphenol blend "Vital Reds". He has a lot of good information on heart disease. You can go to [email or web address]/ And https://World Wide Beauty Exchange/ You can try episome salt baths or magnesium oil. l-carnitine and CoQ10. You can find a combination pill at [facility]. Look up foods high in omega 3. [place] 3 can help fight inflammation and omega 6 cause inflammation. Work on increasing omega 3 and decreasing omega 6 in diet. Try to AVOID anything containing peanut oil, sunflower oil and saffron oil. Canola oil seems to be better. F OF PRODUCTION documented in this encounter Progress Notes Lilibeth [...] Andrade MD July 18, 2019, 6:53 PM F OF PRODUCTION documented in this encounter Plan of Treatment Date Type Specialty Care Team Description 07/22/2019 Doctor Assistant Visit Pulmonary Function Han Arnold Technsuleiman Silva MD 301 [facility] [address] 561 [place], [place] [address] 07/22/2019 Office Visit Dermatology Kaitlin Dent MD 301 [place] [address] 08/13/2019 Nurse Visit Anti-coagulation Clinic Nurse, Vtc Antico ag 08/17/2019 Office Visit Internal Medicine Lilibeth Andrade MD [address] 775 15 [phone] 08/19/2019 Office Visit Psychiatry Mendez Martinez MD [address] [place] [address]. [place] [address] [phone] 09/09/2019 Office Visit Internal Medicine Lilibeth Andraed MD [address] [place] [address] 775 15 09/28/2019 Office Visit Cardiology Robert Adkins MD [address] [place] [address] RT0 570 [place], [place] [address] 10/12/2019 Office Visit Internal Medicine Lilibeth Andrade MD [address] [place] [address] 15 10/19/2019 Office Visit Endocrinology Diabetes & JonesTre MD Metabolism 2660 [place], [place] [address] 10/27/2019 Office Visit Pulmonary Disease Max Aguiar MD [address] [place] [address] 775 15 11/02/2019 Office Visit Internal Medicine Lilibeth Andrade MD [address] [place] [address] 77 15 12/02/2019 Appointment Cardiac Electrophysiology Outpt-Simi, Pacemaker/Icd 12/08/2019 Office Visit Ophthalmology Yariel Tineo MD [address] [place] [address]. [place], [place] [address] Health Maintenance Due Date [...] of this encounter Implants Implanted Type Area Telephone Recorder Device Shelf Model / Identifier Expiration Serial / Date Lot Prolene Mesh MESH Right: Ethicon 12/20/2020 PMSK / Implanted: Qty: 1 on 07/04/2016 by Alfonso Martinez MD at [facility] Abdomen [employer]orporated PMSK / [id number] Pacemaker PACEMAKER Stent-06/24/2016 Implanted: 06/24/2016 (Quantity not [...] Phone Address T e Group Dates HIM [facility] [id number] 2017-Prese [phone] [address] Applause[facility] nt [phone] [place] [address] (Home) [place] [address] documented as of this encounter Advance Directives Name Relationship Healthcare Agent Communication Relationship Keaton Nelson Spouse Primary healthcare agent Elisabeth Soliz Sibling First [facility] healthcare [phone] agent (Mobile)
--- OUTSIDE RECORDS SUMMARY | 2019-11-07 21:49 | XMS REPORT | Summary of Care ---
:1970 Author Organization [facility] Address [address] [place] [address] Care Team Providers Name Role Phone Elmer Andrade MD Primary Care Provider NAVJOT Espinoza Unavailable Unavailable MD Rocco Unavailable Mary Quezada MD Unavailable Genna Anand LINE TENDER Unavailable Unavailable MD Casimiro Unavailable Ricardo Rodriguez DO Car Rental Sales Assistant Reason for Visit Reason Comments Forms Housing Authority Encounter Details Date Type Department Care Team Description 07/20/2019 Telephone [facility] Pediatric Lizeth Andrade Forms (Housing and Adult Primary MD Elmer Authority) Care- [place] [address] [address] [place], [place] [address] [place] [address] [phone] [address] [phone] Allergies Active Allergy Reactions Severity Noted Date [...] as of this encounter (statuses as of 07/20/2019) Medications Medication Sig Dispensed Refills Start Date [...] for Nausea and Hyperglycemia Vomiting (N/V). Insulin [place], Use as directed, 1x 100 Each 1 [...] as of this encounter (statuses as of 07/20/2019) Active Problems Problem Noted Date SOB (shortness [...] Added automatically from request for lillian renny [id number] Syncope 04/01/2017 Chest pain, rule out acute [...] Chest pain 06/12/2016 Coronary artery disease involving [place] coronary briseyda ry of [place] heart 06/12/2016 with angina pectoris [place] (myocardial infarction) 06/12/2016 Type 2 diabetes mellitus without complication 06/12/20 16 Essential hypertension 06/12/2016 History of alcohol abuse Overview: Sober for 16 years documented as of this encounter (statuses as of 07/20/2019) Resolved Problems Problem Noted Date Resolved Date Chest pain radiating to arm 08/08/2016 08/19/2016 Abdominal pain 07/19/2016 08/19/2016 History of epidural anesthesia 07/04/2016 7 Morbid obesity with body mass index of 50 or higher 06/26/19 17 08/19/2016 Obesity (BMI 30-39.9) 06/12/2016 08/19/2016 documented as of this encounter (statuses as of 07/20/2019) Immunizations Name Administration Dates Next Due Td [...] Date Type Specialty Care Team Description 07/22/2019 Merchandise Stocker Visit Pulmonary Function Han Arnold Technologist MD Ricardo [address] [facility] [address] [place], [place] [address] 08/13/2019 Nurse Visit Anti-coagulation Clinic Nurse, Vtc Antico ag 08/17/2019 Office Visit Internal Medicine Lilibeth Andrade MD [address] 77 [address] [phone] 08/19/2019 Office Visit Psychiatry Mendez Martinez MD [address] [place] [address]. [place] [phone] 09/09/2019 Office Visit Internal Medicine Lilibeth Andrade MD [address] 775 15 [phone] 09/28/2019 Office Visit Cardiology Robert Adkins MD [address] [facility] [address] [place], [place] [address] 10/12/2019 Office Visit Internal Medicine Lilibeth Andrade MD [address] 771 15 [phone] 10/19/2019 Office Visit Endocrinology Diabetes & Jones, Tre rodriguez MD Metabolism 2660 [place] [address] [phone] 10/27/2019 Office Visit Pulmonary Disease Max Aguiar MD 146 [address] [facility] 106 [place], [place] [address] [phone] 11/02/2019 Office Visit Internal Medicine Lilibeth Andrade MD 146 [address] [facility] 103 [place], [place] [address] [phone] 12/02/2019 Appointment Cardiac Electrophysiology Outpt-Simi, Pacemaker/Icd 12/08/2019 Office Visit Ophthalmology Yariel Tineo MD [address] [place] [address] Health Maintenance Due Date Last [...] of this encounter Implants Implanted Type Area Brim Buster Device Shelf Model / Identifier Expiration Serial / Date Lot Prolene Mesh MESH Right: Ethicon 12/20/2020 PMSK / Implanted: Qty: 1 on 07/04/2016 by Alfonso Martinez MD at [facility] Abdomen Incorporated PMSK / [id number] Pacemaker PACEMAKER Stent-06/24/2016 Implanted: 06/24/2016 (Quantity not on file) documented as of this encounter Results Not on filedocumented in this encounter Insurance Payer Benefit Plan / Subscriber ID Effective Phone Address T located within [facility] Group Dates HIM [facility] [id number] 2017-Lux [phone] [address] AJ Team ProductsO HEALTH [employer] HEALTH CHOICE [phone] [place] [address] documented as of this encounter Advance Directives Name Relationship Healthcare Agent Communication Relationship Keaton Nelson Spouse Primary healthcare agent Elisabeth Soliz Sibling First alternate healthcare [phone] agent (Mobile)
--- OUTSIDE RECORDS SUMMARY | 2019-11-07 21:49 | XMS REPORT | Summary of Care ---
:1970 Author Organization [facility] Address [address] [place] [address] Care Team Providers Name Role Phone Elmer Andrade MD Primary Care Provider NAVJOT Espinoza Unavailable Unavailable MD Rocco Unavailable Mary Quezada MD Unavailable Genna Anand Unavailable Unavailable MD Casimiro Unavailable Ricardo Rodriguez DO Convenience Store Clerk Reason for Visit Reason Comments Refill Request pantoprazole 40 mg EC tablet Encounter Details Date Type Department Care Team Description 07/21/2019 Telephone [facility] Ioana Mccarty, Refill Re nataly Gastroenterology- (pantoprazole 40 mg [facility] EC tablet ) [address] [facility] So [facility] [address] [place], [place] [address] [id number] Allergies Active Allergy Reactions Severity Noted Date [...] as of this encounter (statuses as of 07/21/2019) Medications Medication Sig Dispensed Refills Start Date [...] anemia due to chronic blood loss Cholecalciferol, Take by mouth. 0 Active Vitamin [...] for Nausea Hyperglycemia and Vomiting (N/V). Insulin [place], Use as directed, 100 Each 1 06/25/2019 [...] times weekly on deficiency Friday and . ARIPiprazole 15 mg Take 1 tablet by 30 tablet 1 07/15/2019 Active tabletIndications: mouth daily. Generalized anxiety disorder, Panic disorder without agoraphobia, Severe episode of recurrent major depressive disorder, without psychotic features clonazePAM 1 mg Take 1 pill PO in 120 tablet 1 07/15/2019 Active tabletIndications: the AM, 1 PO in Generalized anxiety the afternoon, 1 disorder, Panic pill PO in the disorder without evening. May take agoraphobia additional 1 pill as needed acute anxiety. desvenlafaxine Take 2 tablets by 60 tablet 1 07/15/2019 Active succinate (PRISTIQ) mouth daily. 100 mg 24 hr tabletIndications: Severe episode of recurrent major depressive disorder, without psychotic features, Generalized anxiety disorder pantoprazole 40 mg Take 1 tablet by 180 tablet 0 07/21/2019 Active EC tablet mouth 2 (two) times daily. pantoprazole 40 mg Take 1 tablet by 90 tablet 3 12/18/2018 Discontinued EC tablet mouth 2 (two) /2019 (Reord er) times daily. documented as of this encounter (statuses as of 07/21/2019) Active Problems Problem Noted Date SOB (shortness [...] Added automatically from request for lillian renny [id number] Syncope 04/01/2017 Chest pain, rule out acute [...] Chest pain 06/12/2016 Coronary artery disease involving [place] coronary briseyda ry of [place] heart 06/12/2016 with angina pectoris [place] (myocardial infarction) 06/12/2016 Type 2 diabetes mellitus without complication 06/12/20 16 Essential hypertension 06/12/2016 History of alcohol abuse Overview: Sober for 16 years documented as of this encounter (statuses as of 07/21/2019) Resolved Problems Problem Noted Date Resolved Date Chest pain radiating to arm 08/08/2016 08/19/2016 Abdominal pain 07/19/2016 08/19/2016 History of epidural anesthesia 07/04/2016 7 Morbid obesity with body mass index of 50 or higher 06/26/19 17 08/19/2016 Obesity (BMI 30-39.9) 06/12/2016 08/19/2016 documented as of this encounter (statuses as of 07/21/2019) Immunizations Name Administration Dates Next Due Td [...] Date Type Specialty Care Team Description 07/22/2019 Supervisor Beater Room Visit Pulmonary Function Han Arnold Technologist MD Ricardo [address] [facility] [address] [place], [place] [address] 08/13/2019 Nurse Visit Anti-coagulation Clinic Nurse, Christen Desai ag 08/17/2019 Office Visit Internal Medicine Lilibeth Andrade MD [address] 77 [address] 08/19/2019 Office Visit Psychiatry Mendez Martinez MD [address] [place] [address]. [place] [address] 09/09/2019 Office Visit Internal Medicine Lilbieth Andrade MD [address] [place] [address] 775 15 [phone] 09/28/2019 Office Visit Cardiology Robert Adkins MD [address] [facility] [address] [place], [place] [address] 10/12/2019 Office Visit Internal Medicine Lilibeth Andrade MD 146 [facility] 103 [place], [place] [address] [phone] 10/19/2019 Office Visit Endocrinology Diabetes & JonesTre MD Metabolism 2660 [place] [address] [phone] 10/27/2019 Office Visit Pulmonary Disease Max Aguiar MD 146 [facility] 106 [place], [place] [address] [phone] 11/02/2019 Office Visit Internal Medicine Lilibeth Andrade MD 146 [facility] 103 [place], [place] [address] [phone] 12/02/2019 Appointment Cardiac Electrophysiology Outpt-Simi, Pacemaker/Icd 12/08/2019 Office Visit Ophthalmology Yariel iTneo MD [address] [place] [address] 77 550 Health Maintenance Due Date Last [...] of this encounter Implants Implanted Type Area Power Station Operator Device Shelf Model / Identifier Expiration Serial / Date Lot Prolene Mesh MESH Right: Ethicon 12/20/2020 PMSK / Implanted: Qty: 1 on 07/04/2016 by Alfonso Martinez MD at [facility] [employer] PMSK / [id number] Pacemaker PACEMAKER Stent-06/24/2016 Implanted: 06/24/2016 (Quantity not on file) documented as of this encounter Results Not on filedocumented in this encounter Insurance Payer Benefit Plan / Subscriber ID Effective Phone Address T e Group Dates HIM [facility] [id number] 2017-Lux [phone] [facility] [employer] [facility] CHOICE nt 86 [id number] [place] [address] documented as of this encounter Advance Directives Name Relationship Healthcare Agent Communication Relationship Keaton Nelson Spouse Primary healthcare agent Elisabeth Soliz Sibling First alternate healthcare [phone] agent (Mobile)
--- OUTSIDE RECORDS SUMMARY | 2019-11-07 21:50 | XMS REPORT | Summary of Care ---
:1970 Author Organization [facility] Address [address] [place] [address] Care Team Providers Name Role Phone Elmer Andrade MD Primary Care Provider NAVJOT Espinoza Unavailable Unavailable MD Rocco Unavailable Mary Quezada MD Unavailable Genna Anand Unavailable Unavailable MD Casimiro Unavailable Ricardo Rodriguez DO Meter Record Clerk Encounter Details Date Type Department Care Team Description 07/22/2019 Orders Only [facility] Doctor Unassigned, No 301 [facility] [place] [address] [address] [place] [id number] Allergies Active Allergy Reactions Severity Noted Date [...] as of this encounter (statuses as of 07/22/2019) Medications Medication Sig Dispensed Refills Start Date [...] for Nausea and Hyperglycemia Vomiting (N/V). Insulin [place], Use as directed, 1x 100 Each 1 06/25/2019 Active Disposable, (RELION PEN daily, DX:E11.9 NEEDLES) 32 gauge x 5/32" Ndle Insulin Glargine (LANTUS inject 12-14 Units under 3 mL 0 07/07/2019 Active SOLOSTAR U-100 INSULIN) the skin daily. 100 unit/mL (3 mL) injection metOLazone 2.5 mg Take 1 tablet by mouth 2 10 tablet 2 020 Active tabletIndications: Vitamin (two) times weekly on [...] as of this encounter (statuses as of 07/22/2019) Active Problems Problem Noted Date SOB (shortness [...] Added automatically from request for lillian lawson [id number] Syncope 04/01/2017 Chest pain, rule out acute [...] pain 06/12/2016 Coronary artery disease involving [place] coronary briseyda ry of [place] heart 06/12/2016 with angina pectoris [place] (myocardial infarction) 06/12/2016 Type 2 diabetes mellitus without complication 06/12/20 16 Essential hypertension 06/12/2016 History of alcohol abuse Overview: Sober for 16 years documented as of this encounter (statuses as of 07/22/2019) Resolved Problems Problem Noted Date Resolved Date Chest pain radiating to arm 08/08/2016 08/19/2016 Abdominal pain 07/19/2016 08/19/2016 History of epidural anesthesia 07/04/2016 7 Morbid obesity with body mass index of 50 or higher 06/26/19 17 08/19/2016 Obesity (BMI 30-39.9) 06/12/2016 08/19/2016 documented as of this encounter (statuses as of 07/22/2019) Immunizations Name Administration Dates Next Due Td [...] Date Type Specialty Care Team Description 07/22/2019 Community Center Coordinator Visit Pulmonary Function Han Arnold Technologist MD Ricardo [address] [facility] [address] [place], [place] [address] 08/13/2019 Nurse Visit Anti-coagulation Clinic Nurse, Christen Desai ag 08/17/2019 Office Visit Internal Medicine Lilibeth Andrade MD [address] [place] [address] 77 15 [phone] 08/19/2019 Office Visit Psychiatry Mendez Martinez MD [address] [place] [address]. [place] [address] 09/09/2019 Office Visit Internal Medicine Lilibeth Andrade MD [address] [place] [address] 775 15 [phone] 09/28/2019 Office Visit Cardiology Robert Adkins MD 301 [facility] [address] [place], [place] [address] 10/12/2019 Office Visit Internal Medicine Lilibeth Andrade MD [address] [place] [address] 775 15 [phone] 10/19/2019 Office Visit Endocrinology Diabetes & JonesTre MD [address] [address] [phone] 10/27/2019 Office Visit Pulmonary Disease Max Aguiar MD 146 [facility] [address] [place], [place] [address] 11/02/2019 Office Visit Internal Medicine Lilibeth Andrade MD 146 [facility] 103 [place], [place] [address] [phone] 12/02/2019 Appointment Cardiac Electrophysiology Outpt-Simi, Pacemaker/Icd 12/08/2019 Office Visit Ophthalmology Yariel Tineo MD [address] [place] [address] 77 550 Health Maintenance Due Date Last [...] of this encounter Implants Implanted Type Area Hearing Therapist Device Shelf Model / Identifier Expiration Serial / Date Lot Prolene Mesh MESH Right: Ethicon 12/20/2020 PMSK / Implanted: Qty: 1 on 07/04/2016 by Alfonso Martinez MD at [facility] [employer] PMSK / [id number] Pacemaker PACEMAKER Stent-06/24/2016 Implanted: 06/24/2016 (Quantity not on file) documented as of this encounter Procedures Procedure Name Priority Date/Time Associated Diagnosis Comme nts ASSIGNMENT OF BENEFITS Routine 07/22/2019 9:16 AM GREEN HOUSE MANAGER documented in this encounter Results Not on filedocumented in this encounter Insurance Payer Benefit Plan / Subscriber ID Effective Phone Address T e Group Dates HIM [facility] [id number] 2017-Lux [phone] [address] [employer] [facility] [employer] [facility] [employer] 86 [id number] [place] [address] documented as of this encounter Advance Directives Name Relationship Healthcare Agent Communication Relationship Keaton Nelson Spouse Primary healthcare agent Elisabeth Soliz Sibling First alternate healthcare agent (Mobile)
--- OUTSIDE RECORDS SUMMARY | 2019-11-07 21:51 | XMS REPORT | Summary of Care ---
:1970 Author Organization [facility] Address [address] [place] [address] Care Team Providers Name Role Phone Elmer Andrade MD Primary Care Provider NAVJOT Espinoza Unavailable Unavailable MD Rocco Unavailable Mary Quezada MD Unavailable Genna Anand Unavailable Unavailable MD Casimiro Unavailable Ricardo Rodriguez DO Cosmetic Dentist Reason for Visit Reason Comments LAB WORK Auth/Cert Status Reason Specialty Diagnoses / Procedures Referred By Genna bey Referred To Contact Phlebotomy Diagnoses Hypopotassemia Adc Pob Lab Draw Procedures BASIC METABOLIC PANEL (NA, K, CL, CO2, GLUCOSE, BUN, CREATININE, CA) Professional Office Building 146 [facility] , [address] [place] [address] Phone: Fax: Encounter Details Date Type Department Care Team Description 07/22/2019 Content Director Visit [facility] Robert Adkins MD 301 [facility] [id number] [place] [address] Chronic diastolic CHF (congestive heart failure); Professional Office Pob, Adc Lab Main Hypopotassemia Building Phlebotomy Lab Professional Office Building 146 [facility] , [address] [place] [phone] Allergies Active Allergy Reactions Severity Noted Date [...] for Nausea and Hyperglycemia Vomiting (N/V). Insulin [place], Use as directed, 1x 100 Each 1 [...] Added automatically from request for lillian renny [id number] Syncope 04/01/2017 Chest pain, rule out acute [...] Chest pain 06/12/2016 Coronary artery disease involving [place] coronary briseyda ry of [place]vik heart 06/12/2016 with angina pectoris [place] (myocardial infarction) 06/12/2016 [...] Visit Internal Medicine Lilibeth Andrade MD 146 [place] [address] 08/19/2019 Office Visit Psychiatry Mendez Martinez MD [address] [place] [address]. [place] [phone] 09/09/2019 Office Visit Internal Medicine Lilibeth Andrade MD [address] 775 15 [phone] 09/28/2019 Office Visit Cardiology Robert Adkins MD [address] [facility] [address] [place] [address] [phone] 10/12/2019 Office Visit Internal Medicine Lilibeth Andrade MD 146 [facility] 103 [place], [place] [address] [phone] 10/19/2019 Office Visit Endocrinology Diabetes & Jones, Tre rodriguez MD Metabolism 2660 [place] [address] [phone] 10/27/2019 Office Visit Pulmonary Disease Max Aguiar MD 146 [facility] 106 [place], [place] [address] [phone] 11/02/2019 Office Visit Internal Medicine Lilibeth Andrade MD 146 [facility] 103 [place], [place] [address] [phone] 12/02/2019 Appointment Cardiac Electrophysiology Outpt-Simi, Pacemaker/Icd 12/08/2019 Office Visit Ophthalmology Yariel Tineo MD [address] [place] [address]. [place], [place] [address] Name Type Priority Associated Diagnoses Date/Ti me BASIC METABOLIC PANEL (NA, LAB LIVIA Hypopotassemia 07/22/2019 10:05 AM SALES REPRESENTATIVE EDUCATION COURSES K, CL, CO2, GLUCOSE, BUN, CREATININE, CA) Health Maintenance Due Date Last [...] of this encounter Implants Implanted Type Area Summer Counselor Device Shelf Model / Identifier Expiration Serial / Date Lot Prolene Mesh MESH Right: Ethicon 12/20/2020 PMSK / Implanted: Qty: 1 on 07/04/2016 by Alfonso Martinez MD at [facility] [employer] PMSK / [id number] Pacemaker PACEMAKER Stent-06/24/2016 Implanted: 06/24/2016 (Quantity not on file) documented as of this encounter Results Not on filedocumented in this encounter Visit Diagnoses Diagnosis Chronic diastolic CHF (congestive heart failure) Hypopotassemia documented in this encounter Insurance Payer Benefit Plan / Subscriber ID Effective Phone Address T e Group Dates [facility] [id number] 2017-Lux [phone] [address] [employer] [facility] [email or web address] HE[facility] [email or web address] 86 [phone] [place] [address] (Home) [place] [address] documented as of this encounter Advance Directives Name Relationship Healthcare Agent Communication Relationship Keaton Nelson Spouse Primary healthcare agent Elisabeth Sloiz Sibling First alternate healthcare agent (Mobile)
--- OUTSIDE RECORDS SUMMARY | 2019-11-07 21:52 | XMS REPORT | Summary of Care ---
:1970 Author Organization [facility] Address [address] [place] [address] Care Team Providers Name Role Phone Elmer Andrade MD Primary Care Provider NAVJOT Espinoza Unavailable Unavailable MD Rocco Unavailable Mary Quezada MD Unavailable eGnna AnandP Unavailable Unavailable MD Casimiro Unavailable Ricardo Rodriguez DO Aboriginal Education Worker Coordinator Reason for Visit Reason Comments LAB WORK Encounter Details Date Type Department Care Team Description 08/06/2019 Telephone [facility] Cardiology- Robert Adkins, LAB WORK [place] [address] [address] 301 [facility] [id number] [place], [place] [address] [place], [place] [address] Allergies Active Allergy Reactions Severity Noted Date [...] as of this encounter (statuses as of 08/06/2019) Medications Medication Sig Dispensed Refills Start Date [...] D3) 2,000 unit tablet polyethylene glycol Take g by mouth daily. 238 g 3 08/0 11/2018 Active (MIRALAX) 17 gram/dose powderIndications: Constipation, [...] for Nausea and Hyperglycemia Vomiting (N/V). Insulin [place], Use as directed, 1x 100 Each 1 [...] as of this encounter (statuses as of 08/06/2019) Active Problems Problem Noted Date SOB (shortness [...] Added automatically from request for lillian lawson [id number] Syncope 04/01/2017 Chest pain, rule out acute [...] Chest pain 06/12/2016 Coronary artery disease involving apache coronary briseyda ry of apache heart 06/12/2016 with angina pectoris [place] (myocardial infarction) 06/12/2016 Type 2 diabetes mellitus without complication 06/12/20 16 Essential hypertension 06/12/2016 History of alcohol abuse Overview: Sober for 16 years documented as of this encounter (statuses as of 08/06/2019) Resolved Problems Problem Noted Date Resolved Date Chest pain radiating to arm 08/08/2016 08/19/2016 Abdominal pain 07/19/2016 08/19/2016 History of epidural anesthesia 07/04/2016 7 Morbid obesity with body mass index of 50 or higher 06/26/19 17 08/19/2016 Obesity (BMI 30-39.9) 06/12/2016 08/19/2016 documented as of this encounter (statuses as of 08/06/2019) Immunizations Name Administration Dates Next Due Td [...] Visit Internal Medicine Lilibeth Andrade MD [address] [address] [phone] 08/19/2019 Office Visit Psychiatry Mendez Martinez MD [address] [place] [address]. [place] [phone] 08/24/2019 Office Visit Oncology Lincoln Griffiths MD 1515 [place], [place] [address] [phone] 08/27/2019 Office Visit Gastroenterology Jorge Luis Mccarty MD [facility] [place] [address] [phone] 09/09/2019 Office Visit Internal Medicine Lilibeth Andrade MD [address] 7[address] [phone] 09/28/2019 Office Visit Cardiology [place] Adkins MD 301 [facility] [address] [place], [place] [address] 10/12/2019 Office Visit Internal Medicine Lilibeth Andrade MD 146 [facility] 103 [place], [place] [address] [phone] 10/19/2019 Office Visit Endocrinology Diabetes & JonesTre MD Metabolism 2660 [place] [address] [phone] 10/27/2019 Office Visit Pulmonary Disease Max Aguiar MD 146 [facility] 106 [place], [place] [address] [phone] 11/02/2019 Office Visit Internal Medicine Lilibeth Andrade MD 146 [facility] 103 [place], [place] [address] [phone] 12/02/2019 Appointment Cardiac Electrophysiology Outpt-Simi, Pacemaker/Icd 12/08/2019 Office Visit Ophthalmology Yariel Tineo MD [address] [place] [address] Name Type Priority Associated Diagnoses Order S chedule BASIC METABOLIC PANEL LAB Routine Chronic heart failu re Expected: 08/06/2019, (17122)(NA, K, CL, CO2, with preserved ej ection Expires: 08/06/2020 GLUCOSE, BUN, fraction CREATININE, CA) Health Maintenance Due Date Last [...] 2019 ( Insurance / Financial) CREATININE (SERUM) 08/05/2020 08/05/2019, 08/05/2019, 07/22/2019, Additional history exists COLONOSCOPY 04/22/2027 04/22/2017 DTaP,Tdap,and Td Vaccines 06/26/2027 06/26/2017, 03/19/2015 Postponed from (1 - Tdap) 1980 (Not Indicated) documented as of this encounter Implants Implanted Type Area Data Coder Operator Device Shelf Model / Identifier Expiration Serial / Date Lot Prolene Mesh MESH Right: Ethicon 12/20/2020 PMSK / Implanted: Qty: 1 on 07/04/2016 by Alfonso Martinez MD at [facility] [employer]dom[employer] PMSK / [id number] Pacemaker PACEMAKER Stent-06/24/2016 Implanted: 06/24/2016 (Quantity not on file) documented as of this encounter Results Not on filedocumented in this encounter Visit Diagnoses Diagnosis Chronic heart failure with preserved eje ction fraction - Primary documented in this encounter Insurance Payer Benefit Plan / Subscriber ID Effective Phone Address T [facility] Group Dates [facility] [id number] 2017-Lux [phone] [address] [employer] [facility] [facility] CHOICE 86 [phone] [place] [address] documented as of this encounter Advance Directives Name Relationship Healthcare Agent Communication Relationship Keaton Quinoneslynne Spouse Primary healthcare agent Elisabeth Soliz Sibling First alternate healthcare agent (Mobile)
--- OUTSIDE RECORDS SUMMARY | 2019-11-07 21:53 | XMS REPORT | Summary of Care ---
:1970 Author Organization [facility] Address [address] [place] [address] Care Team Providers Name Role Phone Elmer Andrade MD Primary Care Provider NAVJOT Espinoza Unavailable Unavailable MD Rocco Unavailable Mary Quezada MD Unavailable Genna AnandP Unavailable Unavailable MD Casimiro Unavailable Ricardo Rodriguez DO Metallurgy Teacher Reason for Visit Reason Comments LAB Encounter Details Date Type Department Care Team Description 08/06/2019 Creative Developer Visit [facility] Robert Adkins MD 301 [facility] [id number] [place] [address] Chronic heart Professional Office 2, Adc Lab failure with Building Phlebotomy preserve d ejection Lab fraction Professional Office Building 146 [facility] , [address] [place] [address] Allergies Active Allergy Reactions Severity [...] for Nausea and Hyperglycemia Vomiting (N/V). Insulin [place], Use as directed, 1x 100 Each 1 [...] Added automatically from request for lillian lawson [id number] Syncope 04/01/2017 Chest pain, rule out acute [...] Chest pain 06/12/2016 Coronary artery disease involving [place] coronary briseyda ry of [place] heart 06/12/2016 with angina pectoris [place] (myocardial [...] Internal Medicine Lilibeth Andrade MD [address] 7[address] [phone] 08/19/2019 Office Visit Psychiatry Mendez Martinez MD [address] [place] [address]. [place] [address] 08/24/2019 Office Visit Oncology Lincoln Griffiths MD 1515 [place], [place] [address] [phone] 08/27/2019 Office Visit Gastroenterology Jorge Luis Mccarty MD 8450 [place] [address] [phone] 09/09/2019 Office Visit Internal Medicine Lilibeth Andrade MD [address] 771 15 [phone] 09/28/2019 Office Visit Cardiology Robert Adkins MD 301 [facility] RT0 570 [place], [place] [address] 10/12/2019 Office Visit Internal Medicine Lilibeth Andrade MD 146 [facility] 103 [place], [place] [address] [phone] 10/19/2019 Office Visit Endocrinology Diabetes & Tre Jones MD [facility] 2660 [place] [address] [phone] 10/27/2019 Office Visit Pulmonary Disease Max Aguiar MD 146 [facility] 106 [place], [place] [address] [phone] 11/02/2019 Office Visit Internal Medicine Lilibeth Andrade MD 146 [facility] 103 [place], [place] [address] [phone] 12/02/2019 Appointment Cardiac Electrophysiology Outpt-Simi, Pacemaker/Icd 12/08/2019 Office Visit Ophthalmology Yariel Tineo MD [address] [place] [address]. [place] [address] Health Maintenance Due Date Last Done [...] of this encounter Implants Implanted Type Area Garbage Collector Driver Device Shelf Model / Identifier Expiration Serial / Date Lot Prolene Mesh MESH Right: Ethicon 12/20/2020 PMSK / Implanted: Qty: 1 on 07/04/2016 by Alfonso Martinez MD at [facility] Abdomen [employer]orporated PMSK / [id number] Pacemaker PACEMAKER Stent-06/24/2016 Implanted: 06/24/2016 (Quantity not on file) documented as of this encounter Results Not on filedocumented in this encounter Visit Diagnoses Diagnosis Chronic heart failure with preserved eje ction fraction documented in this encounter Insurance Payer Benefit Plan / Subscriber ID Effective Phone Address T e Group Dates [facility] [id number] 2017-Prese [phone] [employer] [id number] [place] [address] (Home) [place] [address] documented as of this encounter Advance Directives Name Relationship Healthcare Agent Communication Relationship Keaton Nelson Spouse Primary healthcare agent Elisabeth Soliz Sibling First alternate healthcare agent (Mobile)
--- OUTSIDE RECORDS SUMMARY | 2019-11-07 21:53 | XMS REPORT | Summary of Care ---
:1970 Author Organization [facility] Address [address] [place] [address] Care Team Providers Name Role Phone Elmer Andrade MD Primary Care Provider NAVJOT Espinoza Unavailable Unavailable MD Rocco Unavailable Mary Quezada MD Unavailable Genna Anand CONE TENDER Unavailable Unavailable MD Casimiro Unavailable Ricardo Rodriguez DO Auto Radio Mechanic Reason for Referral (Routine) Status Reason Specialty Diagnoses / Referred By Referred To Procedures Contact Contact New Request Patient is Nephrology Diagnoses Chronic kidney disease, stage 3 Hypertension, essential Hypokalemia Chronic diastolic (congestive) heart failure Casey Andrade with Procedures CONSULT/REFERRAL NEPHROLOGY Lilibeth Payne MD a Specific [address] [place] [address] [place] [address] Reason for Visit Reason Comments Referral/consult Encounter Details Date Type Department Care Team Description 08/05/2019 Telephone [facility] Pediatric Lizeth Andrade Referral/consult and Adult Primary Care- MD Lewis [address] [place] [address] [place] [address], [place] [address] [address] [place], [place] [address] [place] [address] [phone] Allergies Active Allergy Reactions Severity Noted Date Comments Adhesive Tape-Silicones Other - See comments 7 Paper tape only !! Tears skin. Other reaction( s): Other (see comm ents) Paper tape only !! Tears skin. Alfuzosin Unknown - See 05/04/2015 comments Beta-Blockers Other - See comments Medium 12/05/2015 Per arnav koenignt "heart (Beta-Adrenergic rate drop, Blocking Agts) lethargic, [...] for Nausea and Hyperglycemia Vomiting (N/V). Insulin [place], Use as directed, 1x 100 Each 1 [...] Added automatically from request for lillian lawson [id number] Syncope 04/01/2017 Chest pain, rule out acute [...] pain 06/12/2016 Coronary artery disease involving [place] coronary briseyda ry of [place] heart 06/12/2016 with angina pectoris [place] (myocardial infarction) 06/12/2016 [...] Visit Internal Medicine Lilibeth Andrade MD [address] 7[address] [phone] 08/19/2019 Office Visit Psychiatry Mendez Martinez MD [address] [place] [address] 08/24/2019 Office Visit Oncology Lincoln Griffiths MD 1515 [place], [place] [address] [phone] 08/27/2019 Office Visit Gastroenterology Jorge Luis Mccarty MD 2660 [place] [address] [phone] 09/09/2019 Office Visit Internal Medicine Lilibeth Andrade MD [address] 7[address] [phone] 09/28/2019 Office Visit Cardiology Robert Adkins MD [address] [place], [place] [address] 10/12/2019 Office Visit Internal Medicine Lilibeth Andrade MD [address] 775 15 [phone] 10/19/2019 Office Visit Endocrinology Diabetes & JonesTre MD [facility] 2660 [place] [address] [phone] 10/27/2019 Office Visit Pulmonary Disease Max Aguiar MD 146 [facility] 106 [place], [place] [address] [phone] 11/02/2019 Office Visit Internal Medicine Lilibeth Andrade MD [address] [place] [address] [phone] 12/02/2019 Appointment Cardiac Electrophysiology Outpt-Siim, Pacemaker/Icd 12/08/2019 Office Visit Ophthalmology Yariel Tineo MD [address] [place] [address]. [place], [place] [address] Health Maintenance Due Date [...] of this encounter Implants Implanted Type Area Hris Developer Device Shelf Model / Identifier Expiration Serial / Date Lot Prolene Mesh MESH Right: Ethicon 12/20/2020 PMSK / Implanted: Qty: 1 on 07/04/2016 by Alfonso Martinez MD at [facility] [employer]domen [employer] PMSK / [id number] Pacemaker PACEMAKER Stent-06/24/2016 Implanted: 06/24/2016 (Quantity not on file) documented as of this encounter Results Not on filedocumented in this encounter Visit Diagnoses Diagnosis Chronic kidney disease, stage 3 - Primar y Hypertension, essential Unspecified essential hypertension Hypokalemia Hypopotassemia Chronic diastolic (congestive) heart ansley lure documented in this encounter Insurance Payer Benefit Plan / Subscriber ID Effective Phone Address T e Group Dates [facility] [id number] 2017-Lux [phone] [address] [employer] HEALTH [employer] HEALTH CHOICE 86 [id number] [place] [address] documented as of this encounter Advance Directives Name Relationship Healthcare Agent Communication Relationship Keaton Nelson Spouse Primary healthcare agent Elisabeth Soliz Sibling [facility] healthcare agent (Mobile)
--- OUTSIDE RECORDS SUMMARY | 2019-11-07 21:54 | XMS REPORT | Summary of Care ---
:1970 Author Organization [facility] Address [address] [place] [address] Care Team Providers Name Role Phone Elmer Andrade MD Primary Care Provider NAVJOT Espinoza Unavailable Unavailable MD Rocco Unavailable Mary Quezada MD Unavailable Genna Anand NEGOTIATIONS DIRECTOR Unavailable Unavailable MD Casimiro Unavailable Ricardo Rodriguez DO Video Surveillance Technician Reason for Visit Reason Comments Appointment Encounter Details Date Type Department Care Team Description 07/27/2019 Telephone [facility] Klaus Mccarty MD Appointment [facility] [place] [address] [place] [address] [place] [address] [phone] Allergies Active Allergy Reactions Severity Noted Date [...] as of this encounter (statuses as of 07/27/2019) Medications Medication Sig Dispensed Refills Start Date [...] for Nausea and Hyperglycemia Vomiting (N/V). Insulin [place], Use as directed, 1x 100 Each 1 [...] as of this encounter (statuses as of 07/27/2019) Active Problems Problem Noted Date SOB (shortness [...] Overview: Added automatically from request for lillian perezy [id number] Syncope 04/01/2017 Chest pain, rule out acute [...] Chest pain 06/12/2016 Coronary artery disease involving [place] coronary briseyda ry of [place] heart 06/12/2016 with angina pectoris [place] (myocardial infarction) 06/12/2016 Type 2 diabetes mellitus without complication 06/12/20 16 Essential hypertension 06/12/2016 History of alcohol abuse Overview: Sober for 16 years documented as of this encounter (statuses as of 07/27/2019) Resolved Problems Problem Noted Date Resolved Date Chest pain radiating to arm 08/08/2016 08/19/2016 Abdominal pain 07/19/2016 08/19/2016 History of epidural anesthesia 07/04/2016 7 Morbid obesity with body mass index of 50 or higher 06/26/19 17 08/19/2016 Obesity (BMI 30-39.9) 06/12/2016 08/19/2016 documented as of this encounter (statuses as of 07/27/2019) Immunizations Name Administration Dates Next Due Td [...] Description 08/13/2019 Nurse Visit Anti-coagulation Clinic Nurse, Nhc Antico ag 08/17/2019 Office Visit Internal Medicine Lilibeth Andrade MD [address] 7[address] [phone] 08/19/2019 Office Visit Psychiatry Mendez Martinez MD [address] [place] [address]. [place] [phone] 08/24/2019 Office Visit Oncology Lincoln Griffiths MD 1515 [place], [place] [address] [phone] 08/27/2019 Office Visit Gastroenterology Jorge Luis Mccarty MD 2660 [place] [address] [phone] 09/09/2019 Office Visit Internal Medicine Lilibeth Andrade MD [address] 7[address] [phone] 09/28/2019 Office Visit Cardiology Robert Adkins MD 301 [facility] RT0 570 [place], [place] [address] [phone] 10/12/2019 Office Visit Internal Medicine Lilibeth Andrade MD 146 [facility] 103 [place], [place] [address] [phone] 10/19/2019 Office Visit Endocrinology Diabetes & Jones, Tre rodriguez MD Metabolism 2660 [place] [address] [phone] 10/27/2019 Office Visit Pulmonary Disease Max Aguiar MD 146 [facility] 106 [place], [place] [address] [phone] 11/02/2019 Office Visit Internal Medicine Lilibeth Andrade MD 146 [facility] 103 [place] [address] [phone] 12/02/2019 Appointment Cardiac Electrophysiology Outpt-Simi, Pacemaker/Icd 12/08/2019 Office Visit Ophthalmology Yariel Tineo MD [address] [place] [address] Health Maintenance Due Date Last [...] of this encounter Implants Implanted Type Area Roll Shop Supervisor Device Shelf Model / Identifier Expiration Serial / Date Lot Prolene Mesh MESH Right: Ethicon 12/20/2020 PMSK / Implanted: Qty: 1 on 07/04/2016 by Alfonso Martinez MD at [facility] Abdomen [employer]orporated PMSK / [id number] Pacemaker PACEMAKER Stent-06/24/2016 Implanted: 06/24/2016 (Quantity not on file) documented as of this encounter Results Not on filedocumented in this encounter Insurance Payer Benefit Plan / Subscriber ID Effective Phone Address T e Group Dates [facility] [id number] 2017-Lux [phone] [address] Near [employer] HEALTH [address] HEALTH CHOICE nt [id number] [place] [address] documented as of this encounter Advance Directives Name Relationship Healthcare Agent Communication Relationship Keaton Nelson Spouse Primary healthcare agent Elisabeth Soliz Sibling First alternate healthcare [phone] agent (Mobile)
--- OUTSIDE RECORDS SUMMARY | 2019-11-07 21:55 | XMS REPORT | Summary of Care ---
:1970 Author Organization [facility] Address [address] [place] [address] Care Team Providers Name Role Phone Elmer Andrade MD Primary Care Provider NAVJOT Espinoza Unavailable Unavailable MD Rocco Unavailable Mary Quezada MD Unavailable Genna Anand TOURS CAPTAIN Unavailable Unavailable MD Casimiro Unavailable Ricardo Rodriguez DO Itinerant Teacher Assistant Reason for Visit Reason Comments Notification Rx Concern/Question Encounter Details Date Type Department Care Team Description 07/22/2019 Telephone [facility]- Robert Adkins otification; Rx [place] MD Namita Concern/Question [id number] [address] [facility] [place] [address] [facility] [address] [place] [address] [id number] Allergies Active Allergy Reactions Severity Noted Date [...] for Nausea and Hyperglycemia Vomiting (N/V). Insulin [place], Use as directed, 1x 100 Each 1 [...] Added automatically from request for lillian lawson [id number] Syncope 04/01/2017 Chest pain, rule out acute [...] Chest pain 06/12/2016 Coronary artery disease involving [place] coronary briseyda ry of [place] heart 06/12/2016 with angina pectoris [place] (myocardial infarction) 06/12/2016 Type 2 diabetes mellitus [...] Visit Internal Medicine Lilibeth Andrade MD [address] 7[address] [phone] 08/19/2019 Office Visit Psychiatry Mendez Martinez MD [address] [place] [address]. [place] [address] 08/24/2019 Office Visit Oncology Lincoln Griffiths MD 1515 [place], [place] [address] [phone] 08/27/2019 Office Visit Gastroenterology Jorge Luis Mccarty MD 2660 [place] [address] [phone] 09/09/2019 Office Visit Internal Medicine Lilibeth Andrade MD [address] 774 [address] [phone] 09/28/2019 Office Visit Cardiology Robert Adkins MD 301 [facility] RT0 570 [place], [place] [address] [phone] 10/12/2019 Office Visit Internal Medicine Lilibeth Andrade MD 146 [facility] 103 [place], [place] [address] [phone] 10/19/2019 Office Visit Endocrinology Diabetes & Tre Jones MD [facility] 2660 [place] [address] [phone] 10/27/2019 Office Visit Pulmonary Disease Max Aguiar MD 146 [facility] 106 [place], [place] [address] [phone] 11/02/2019 Office Visit Internal Medicine Lilibeth Andrade MD 146 [facility] 103 [place], [place] [address] [phone] 12/02/2019 Appointment Cardiac Electrophysiology Outpt-Simi, Pacemaker/Icd 12/08/2019 Office Visit Ophthalmology Yariel Tineo MD [address] [place] [address] 550 Health Maintenance Due Date Last Done [...] of this encounter Implants Implanted Type Area Student Specialist Device Shelf Model / Identifier Expiration Serial / Date Lot Prolene Mesh MESH Right: Ethicon 12/20/2020 PMSK / Implanted: Qty: 1 on 07/04/2016 by Alfonso Martinez MD at [facility] Abdomen [employer]orporated PMSK / [id number] Pacemaker PACEMAKER Stent-06/24/2016 Implanted: 06/24/2016 (Quantity not on file) documented as of this encounter Results Not on filedocumented in this encounter Insurance Payer Benefit Plan / Subscriber ID Effective Phone Address T e Group Dates [facility] [id number] 2017-Prese [phone] [address] HMO HEALTH [employer] HEALTH CHOICE [phone] [place] [address] documented as of this encounter Advance Directives Name Relationship Healthcare Agent Communication Relationship Keaton Nelson Spouse Primary healthcare agent Elisabeth Soliz Sibling First alternate healthcare [phone] agent (Mobile)
--- OUTSIDE RECORDS SUMMARY | 2019-11-07 21:55 | XMS REPORT | Summary of Care ---
:1970 Author Organization [facility] Address [address] [place] [address] Care Team Providers Name Role Phone Elmer Andrade MD Primary Care Provider NAVJOT Espinoza Unavailable Unavailable MD Rocco Unavailable Mary Quezada MD Unavailable Genna Anand BATH MIX OPERATOR Unavailable Unavailable MD Casimiro Unavailable Ricardo Rodriguez DO Cocoa Mill Operator Reason for Visit Reason Comments Forms Form for food stamps Encounter Details Date Type Department Care Team Description 07/28/2019 Telephone [facility] Lizeth Andrade Forms (Form for food and Adult Primary MD Elmer stamps) Care- [place] 146 [facility] 146 [facility] , [facility] [address] [phone] [address] [phone] Allergies Active Allergy Reactions Severity Noted Date [...] as of this encounter (statuses as of 07/28/2019) Medications Medication Sig Dispensed Refills Start Date [...] for Nausea and Hyperglycemia Vomiting (N/V). Insulin [place], Use as directed, 1x 100 Each 1 [...] as of this encounter (statuses as of 07/28/2019) Active Problems Problem Noted Date SOB (shortness [...] Added automatically from request for lillian perezy [id number] Syncope 04/01/2017 Chest pain, rule out acute [...] Chest pain 06/12/2016 Coronary artery disease involving [place] coronary briseyda ry of [place] heart 06/12/2016 with angina pectoris [place] (myocardial infarction) 06/12/2016 Type 2 diabetes mellitus without complication 06/12/20 16 Essential hypertension 06/12/2016 History of alcohol abuse Overview: Sober for 16 years documented as of this encounter (statuses as of 07/28/2019) Resolved Problems Problem Noted Date Resolved Date Chest pain radiating to arm 08/08/2016 08/19/2016 Abdominal pain 07/19/2016 08/19/2016 History of epidural anesthesia 07/04/2016 7 Morbid obesity with body mass index of 50 or higher 06/26/19 17 08/19/2016 Obesity (BMI 30-39.9) 06/12/2016 08/19/2016 documented as of this encounter (statuses as of 07/28/2019) Immunizations Name Administration Dates Next Due Td [...] Visit Internal Medicine Lilibeth Andrade MD [address] 7[address] [phone] 08/19/2019 Office Visit Psychiatry Mendez Martinez MD [address] [place] [address]. [place] [address] 08/24/2019 Office Visit Oncology Lincoln Griffiths MD 1515 [place], [place] [address] [phone] 08/27/2019 Office Visit Gastroenterology Jorge Luis Mccarty MD 2660 [place] [address] [phone] 09/09/2019 Office Visit Internal Medicine Lilibeth Andrade MD [address] [place] [address] [phone] 09/28/2019 Office Visit Cardiology Robert Adkins MD 301 [facility] RT0 570 [place], [place] [address] 10/12/2019 Office Visit Internal Medicine Lilibeth Andrade MD 146 [facility] 103 [place], [place] [address] [phone] 10/19/2019 Office Visit Endocrinology Diabetes & Jones, Tre rodriguez MD Metabolism 2660 [place] [address] [phone] 10/27/2019 Office Visit Pulmonary Disease Max Aguiar MD 146 [facility] 106 [place], [place] [address] [phone] 11/02/2019 Office Visit Internal Medicine Lilibeth Andrade MD 146 [facility] 103 [place], [place] [address] [phone] 12/02/2019 Appointment Cardiac Electrophysiology Outpt-Simi, Pacemaker/Icd 12/08/2019 Office Visit Ophthalmology Yariel Tineo MD [address] [place] [address] 550 Health Maintenance Due Date Last Done [...] of this encounter Implants Implanted Type Area Dial Buffer Device Shelf Model / Identifier Expiration Serial / Date Lot Prolene Mesh MESH Right: Ethicon 12/20/2020 PMSK / Implanted: Qty: 1 on 07/04/2016 by Alfonso Martinez MD at [facility] Abdomen Incorporated PMSK / [id number] Pacemaker PACEMAKER Stent-06/24/2016 Implanted: 06/24/2016 (Quantity not on file) documented as of this encounter Results Not on filedocumented in this encounter Insurance Payer Benefit Plan / Subscriber ID Effective Phone Address T e Group Dates [facility] [id number] 2017-Prese [phone] [address] HMO HEALTH [employer] HEALTH CHOICE 86 [id number] [place] [address] documented as of this encounter Advance Directives Name Relationship Healthcare Agent Communication Relationship Keaton Nelson Spouse Primary healthcare agent Elisabeth Soliz Sibling First alternate healthcare [phone] agent (Mobile)
[2019-11-07 21:56] VITALS: BP 122/80; TEMP 98.5; O2SAT 100
--- OUTSIDE RECORDS SUMMARY | 2019-11-07 21:56 | XMS REPORT | Summary of Care ---
:1970 Author Organization [facility] Address [address] [place] [address] Care Team Providers Name Role Phone Elmer Andrade MD Primary Care Provider NAVJOT Espinoza Unavailable Unavailable MD Rocco Unavailable Mary Quezada MD Unavailable Genna Anand ASSEMBLER SKYLIGHTS Unavailable Unavailable MD Casimiro Unavailable Ricardo Rodriguez DO Sawmill Worker Reason for Visit Reason Comments Forms Form for food stamps Encounter Details Date Type Department Care Team Description 07/28/2019 Telephone [facility] Pediatric Lizeth Andrade Forms (Form for food and Adult Primary MD Elmer stamps) Care- [place] 146 [facility] 146 [facility] , [facility] [address] [phone] [address] [phone] Allergies Active Allergy Reactions Severity Noted Date [...] as of this encounter (statuses as of 07/29/2019) Medications Medication Sig Dispensed Refills Start Date [...] for Nausea and Hyperglycemia Vomiting (N/V). Insulin [place], Use as directed, 1x 100 Each 1 [...] as of this encounter (statuses as of 07/29/2019) Active Problems Problem Noted Date SOB (shortness [...] Added automatically from request for lillian perezy [id number] Syncope 04/01/2017 Chest pain, rule out acute [...] Chest pain 06/12/2016 Coronary artery disease involving [place] coronary briseyda ry of [place] heart 06/12/2016 with angina pectoris [place] (myocardial infarction) 06/12/2016 Type 2 diabetes mellitus without complication 06/12/20 16 Essential hypertension 06/12/2016 History of alcohol abuse Overview: Sober for 16 years documented as of this encounter (statuses as of 07/29/2019) Resolved Problems Problem Noted Date Resolved Date Chest pain radiating to arm 08/08/2016 08/19/2016 Abdominal pain 07/19/2016 08/19/2016 History of epidural anesthesia 07/04/2016 7 Morbid obesity with body mass index of 50 or higher 06/26/19 17 08/19/2016 Obesity (BMI 30-39.9) 06/12/2016 08/19/2016 documented as of this encounter (statuses as of 07/29/2019) Immunizations Name Administration Dates Next Due Td [...] Internal Medicine Lilibeth Andrade MD [address] 778 15 [phone] 08/19/2019 Office Visit Psychiatry Mendez Martinez MD [address] [place] [address]. [place] [address] 08/24/2019 Office Visit Oncology Lincoln Griffiths MD 1515 [place], [place] [address] [phone] 08/27/2019 Office Visit Gastroenterology Jorge Luis Mccarty MD 26[address] [place] [address] [phone] 09/09/2019 Office Visit Internal Medicine Lilibeth Andrade MD [address] [place] [address] 775 15 [phone] 09/28/2019 Office Visit Cardiology Robert Adkins MD 301 [facility] RT0 570 [place], [place] [address] 10/12/2019 Office Visit Internal Medicine Lilibeth Andrade MD 146 [facility] 103 [place], [place] [address] [phone] 10/19/2019 Office Visit Endocrinology Diabetes & Jones, Tre rodriguez MD Metabolism 2660 [place] [address] [phone] 10/27/2019 Office Visit Pulmonary Disease Max Aguiar MD 146 [facility] 106 [place], [place] [address] [phone] 11/02/2019 Office Visit Internal Medicine Lilibeth Andrade MD 146 [facility] 103 [place], [place] [address] [phone] 12/02/2019 Appointment Cardiac Electrophysiology Outpt-Simi, Pacemaker/Icd 12/08/2019 Office Visit Ophthalmology Yariel Tineo MD [address] [place] [address] 550 Health Maintenance Due Date Last Done [...] this encounter Implants Implanted Type Area Media Librarian Device Shelf Model / Identifier Expiration Serial / Date Lot Prolene Mesh MESH Right: Ethicon 12/20/2020 PMSK / Implanted: Qty: 1 on 07/04/2016 by Alfonso Martinez MD at [facility] Abdom[employer] PMSK / [id number] Pacemaker PACEMAKER Stent-06/24/2016 Implanted: 06/24/2016 (Quantity not on file) documented as of this encounter Results Not on filedocumented in this encounter Insurance Payer Benefit Plan / Subscriber ID Effective Phone Address T e Group Dates [facility] [id number] 2017-Prese [phone] [address] HMO HEALTH [employer] HEALTH CHOICE 86 [id number] [place] [address] documented as of this encounter Advance Directives Name Relationship Healthcare Agent Communication Relationship Keaton Nelson Spouse Primary healthcare agent Elisabeth Soliz Sibling First alternate healthcare agent (Mobile)
--- OUTSIDE RECORDS SUMMARY | 2019-11-07 21:57 | XMS REPORT | Summary of Care ---
:1970 Author Organization [facility] Address [address] [place] [address] Care Team Providers Name Role Phone Elmer Andrade MD Primary Care Provider NAVJOT Espinoza Unavailable Unavailable MD Rocco Unavailable Mary Quezada MD Unavailable Genna AnandP Unavailable Unavailable MD Casimiro Unavailable Ricardo Rodriguez DO Pool Finisher Reason for Visit Reason Comments Forms Encounter Details Date Type Department Care Team Description 08/02/2019 Telephone [facility] Pediatric and Bharti Andrade Forms Adult Primary Care- [place] 146 [facility] 146 [facility] , Suite [facility] 1 03 205 [place] [address] [place] [address] [phone] Allergies Active Allergy Reactions Severity Noted Date [...] as of this encounter (statuses as of 08/03/2019) Medications Medication Sig Dispensed Refills Start Date [...] for Nausea and Hyperglycemia Vomiting (N/V). Insulin [place], Use as directed, 1x 100 Each 1 [...] as of this encounter (statuses as of 08/03/2019) Active Problems Problem Noted Date SOB (shortness [...] Added automatically from request for lillian renny [id number] Syncope 04/01/2017 Chest pain, rule out acute [...] Chest pain 06/12/2016 Coronary artery disease involving [place] coronary briseyda ry of [place] heart 06/12/2016 with angina pectoris [place] (myocardial infarction) 06/12/2016 Type 2 diabetes mellitus without complication 06/12/20 16 Essential hypertension 06/12/2016 History of alcohol abuse Overview: Sober for 16 years documented as of this encounter (statuses as of 08/03/2019) Resolved Problems Problem Noted Date Resolved Date Chest pain radiating to arm 08/08/2016 08/19/2016 Abdominal pain 07/19/2016 08/19/2016 History of epidural anesthesia 07/04/2016 7 Morbid obesity with body mass index of 50 or higher 06/26/19 17 08/19/2016 Obesity (BMI 30-39.9) 06/12/2016 08/19/2016 documented as of this encounter (statuses as of 08/03/2019) Immunizations Name Administration Dates Next Due Td [...] Internal Medicine Lilibeth Andrade MD [address] 77 [address] [phone] 08/19/2019 Office Visit Psychiatry Mendez Martinez MD [address] [place] [address]. [place] [phone] 08/24/2019 Office Visit Oncology Lincoln Griffiths MD 1515 [place], [place] [address] [phone] 08/27/2019 Office Visit Gastroenterology Jorge Luis Mccarty MD [facility] [place] [address] [phone] 09/09/2019 Office Visit Internal Medicine Lilibeth Andrade MD [address] 772 15 [phone] 09/28/2019 Office Visit Cardiology Robert Adkins MD 301 [facility] RT0 570 [place], [place] [address] 10/12/2019 Office Visit Internal Medicine Lilibeth Andrade MD 146 [facility] 103 [place], [place] [address] [phone] 10/19/2019 Office Visit Endocrinology Diabetes & JonesTre MD Metabolism 2660 [place] [address] [phone] 10/27/2019 Office Visit Pulmonary Disease Max Aguiar MD 146 [facility] 106 [place], [place] [address] [phone] 11/02/2019 Office Visit Internal Medicine Lilibeth Andrade MD 146 [facility] 103 [place], [place] [address] [phone] 12/02/2019 Appointment Cardiac Electrophysiology Outpt-Simi, Pacemaker/Icd 12/08/2019 Office Visit Ophthalmology Yariel Tineo MD [address] [place] [address]. [place], [place] [address] Health Maintenance Due Date [...] of this encounter Implants Implanted Type Area Agricultural Chemist Device Shelf Model / Identifier Expiration Serial / Date Lot Prolene Mesh MESH Right: Ethicon 12/20/2020 PMSK / Implanted: Qty: 1 on 07/04/2016 by Alfonso Martinez MD at [facility] Abdomen [employer]orporated PMSK / [id number] Pacemaker PACEMAKER Stent-06/24/2016 Implanted: 06/24/2016 (Quantity not on file) documented as of this encounter Results Not on filedocumented in this encounter Insurance Payer Benefit Plan / Subscriber ID Effective Phone Address T e Group Dates [facility] [id number] 2017-Lux [phone] [address] [employer] HE[employer] HEALTH CHOICE nt 86 [id number] [place] [address] documented as of this encounter Advance Directives Name Relationship Healthcare Agent Communication Relationship Keaton Nelson Spouse Primary healthcare agent Elisabeth Soliz Sibling First alternate healthcare [phone] agent (Mobile)
--- OUTSIDE RECORDS SUMMARY | 2019-11-07 21:57 | XMS REPORT | Summary of Care ---
:1970 Author Organization [facility] Address [address] [place] [address] Care Team Providers Name Role Phone Elmer Andrade MD Primary Care Provider NAVJOT Espinoza Unavailable Unavailable MD Rocco Unavailable Mary Quezada MD Unavailable Genna Anand Unavailable Unavailable MD Casimiro Unavailable Ricardo Rodriguez DO Pilates Instructor Encounter Details Date Type Department Care Team Description 07/07/2019 Patient Secure [facility] Dermatology, Doctor Lilian ssigned, [place] [address] [place] [address] 301 [facility] Entrance [address], [address] [place] [address] [place] [address] Allergies Active Allergy Reactions Severity [...] as of this encounter (statuses as of 08/07/2019) Medications Medication Sig Dispensed Refills Start Date [...] for Nausea and Hyperglycemia Vomiting (N/V). Insulin [place], Use as directed, 1x 100 Each 1 06/25/2019 Active Disposable, (RELION PEN daily, DX:E11.9 NEEDLES) 32 gauge x 5/32" Ndle Insulin Glargine (LANTUS inject 12-14 Units under 3 mL 0 07/07/2019 Active SOLOSTAR U-100 INSULIN) the skin daily. 100 unit/mL (3 mL) injection documented as of this encounter (statuses as of 08/07/2019) Active Problems Problem Noted Date SOB (shortness [...] Added automatically from request for lillian lawson [id number] Syncope 04/01/2017 Chest pain, rule out acute [...] 06/12/2016 Coronary artery disease involving [place] coronary briseyda ry of [place] heart 06/12/2016 with angina pectoris [place] (myocardial infarction) 06/12/2016 Type 2 diabetes mellitus without complication 06/12/20 16 Essential hypertension 06/12/2016 History of alcohol abuse Overview: Sober for 16 years documented as of this encounter (statuses as of 08/07/2019) Resolved Problems Problem Noted Date Resolved Date Chest pain radiating to arm 08/08/2016 08/19/2016 Abdominal pain 07/19/2016 08/19/2016 History of epidural anesthesia 07/04/2016 7 Morbid obesity with body mass index of 50 or higher 06/26/19 17 08/19/2016 Obesity (BMI 30-39.9) 06/12/2016 08/19/2016 documented as of this encounter (statuses as of 08/07/2019) Immunizations Name Administration Dates Next Due Td [...] Description 08/13/2019 Nurse Visit Anti-coagulation Clinic Nurse, Christen Antico ag 08/17/2019 Office Visit Internal Medicine Lilibeth Andrade MD [address] [place] [address] 15 [phone] 08/19/2019 Office Visit Psychiatry Mendez Martinez MD [address] [place] [address] [phone] 08/24/2019 Office Visit Oncology Lincoln Griffiths MD 15[address] [place], [place] [address] 08/27/2019 Office Visit Gastroenterology Jorge Luis Mccarty MD [facility] [place] [address] [phone] 09/09/2019 Office Visit Internal Medicine Lilibeth Andrade MD [address] [place] [address] 15 [phone] 09/28/2019 Office Visit Cardiology Robert Adkins MD [address] [place] [address] RT0 570 [place], [place] [address] [phone] 10/12/2019 Office Visit Internal Medicine Lilibeth Andrade MD [address] [place] [address] 15 [phone] 10/19/2019 Office Visit Endocrinology Diabetes & JonesTre MD [address] [address] [phone] 10/27/2019 Office Visit Pulmonary Disease Max Aguiar MD [address] [place] [address] 15 [phone] 11/02/2019 Office Visit Internal Medicine Lilibeth Andrade MD [address] [place] [address] 15 [phone] 12/02/2019 Appointment Cardiac Electrophysiology Outpt-Simi, Pacemaker/Icd 12/08/2019 Office Visit Ophthalmology Yariel Tineo MD [address] [place] [address] [phone] Health Maintenance Due Date Last Done Comments [...] 2019 ( Insurance / Financial) CREATININE (SERUM) 08/06/2020 08/06/2019, 08/05/2019, 08/05/2019, Additional history exists COLONOSCOPY 04/22/2027 04/22/2017 DTaP,Tdap,and Td Vaccines 06/26/2027 06/26/2017, 03/19/2015 Postponed from (1 - Tdap) 1980 (Not Indicated) documented as of this encounter Implants Implanted Type Area Balance Engineer Device Shelf Model / Identifier Expiration Serial / Date Lot Prolene Mesh MESH Right: Ethicon 12/20/2020 PMSK / Implanted: Qty: 1 on 07/04/2016 by Alfonso Martinez MD at [facility] Abdomen Incorporated PMSK / [id number] Pacemaker PACEMAKER Stent-06/24/2016 Implanted: 06/24/2016 (Quantity not on file) documented as of this encounter Results Not on filedocumented in this encounter Insurance Payer Benefit Plan / Subscriber ID Effective Phone Address T e Group Dates [facility] [id number] 2017-Prese [phone] [address] [employer] HEALTH CHOICE HEALTH CHOICE 86 [phone] [place] [address] documented as of this encounter Advance Directives Name Relationship Healthcare Agent Communication Relationship Keaton Nelson Spouse Primary healthcare agent Elisabeth Soliz Sibling First [facility] agent (Mobile)
--- OUTSIDE RECORDS SUMMARY | 2019-11-07 21:59 | XMS REPORT | Summary of Care ---
:1970 Author Organization [facility] - [facility] Address [address] [place] [address] Care Team Providers Name Role Phone Elmer Andrade MD Primary Care Provider NAVJOT Espinoza Unavailable Unavailable MD Rocco Unavailable Mary Quezada MD Unavailable Genna Anand STUNTMAN Unavailable Unavailable MD Casimiro Unavailable Ricardo Rodriguez DO Airplane Designer Reason for Referral Radiology Services (STAT) Status Reason Specialty Diagnoses / Referred By Referred To Procedures Contact Contact New Request Diagnostic Diagnoses Chest pain, unspecified type Haider Melvin Radiology Procedures XR CHEST 2 VW G, COMMUNICATION PROFESSOR [address] [facility] [id number] [place] [address] Reason for Visit Reason Comments Shortness of Breath Encounter Details Date Type Department Care Team Description 08/08/2019 Emergency ADC-Emergency DreHaider levy G, Chest cassie n, unspecified type (Primary Dx); Department COMMUNICATION PROFESSOR Congestive heart failure, unspecified HF chronicity, unspecified heart failure type; [address] [place] [address] Acute on chronic diastolic c ongestive heart failure; [place] [address] [id number] Anxiety; [phone] [place], [place] Angina at rest ; [address] Hypervolemia, unspecified hypervolemia t ype; [phone] Pacemaker; SCHILLING (dysp brian on exertion); Essential hyper tension; Type 2 diabetes mellitus without complication, with long-term current use of insulin Allergies Active Allergy Reactions Severity Noted Date [...] as of this encounter (statuses as of 08/08/2019) Medications Medication Sig Dispensed Refills Start Date [...] for Nausea and Hyperglycemia Vomiting (N/V). Insulin [place], Use as directed, 1x 100 Each 1 [...] as of this encounter (statuses as of 08/08/2019) Active Problems Problem Noted Date SOB (shortness [...] Added automatically from request for lillian lawson [id number] Syncope 04/01/2017 Chest pain, rule out acute [...] Chest pain 06/12/2016 Coronary artery disease involving [place] coronary briseyda ry of [place] heart 06/12/2016 with angina pectoris [place] (myocardial infarction) 06/12/2016 Type 2 diabetes mellitus without complication 06/12/20 16 Essential hypertension 06/12/2016 History of alcohol abuse Overview: Sober for 16 years documented as of this encounter (statuses as of 08/08/2019) Resolved Problems Problem Noted Date Resolved Date Chest pain radiating to arm 08/08/2016 08/19/2016 Abdominal pain 07/19/2016 08/19/2016 History of epidural anesthesia 07/04/2016 7 Morbid obesity with body mass index of 50 or higher 06/26/19 17 08/19/2016 Obesity (BMI 30-39.9) 06/12/2016 08/19/2016 documented as of this encounter (statuses as of 08/08/2019) Immunizations Name Administration Dates Next Due Td [...] Sign Reading Time Taken Comments Blood Pressure 118/65 08/08/2019 7:13 PM INVENTORY CONTROL ASSISTANT Pulse 68 08/08/2019 7:13 PM INVENTORY CONTROL ASSISTANT Temperature 36.8 C (98.2 F) 08/08/2019 2:28 PM INVENTORY CONTROL ASSISTANT Respiratory Rate 12 08/08/2019 7:13 PM INVENTORY CONTROL ASSISTANT Oxygen Saturation 97% 08/08/2019 7:13 PM INVENTORY CONTROL ASSISTANT Inhaled Oxygen Concentration - - Weight 132.9 kg (293 lb) 08/08/2019 2:27 PM INVENTORY CONTROL ASSISTANT Height - - Body Mass Index 42.04 07/13/2019 10:58 AM INVENTORY CONTROL ASSISTANT documented in this encounter Discharge Instructions InstructionsHaider Melvin NP - 08/08/2019Diagnosis: Fluid retention Angina Take to your CHF clinic in am Continue your regularly scheduled medications AttachmentsThe following attachments cannot be sent through Care Everywhere. Fast-Acting Nitroglycerin, Discharge Instructions: Taking (Liberian)Angina, What Is (Liberian)documented in this encounter Plan of Treatment Date Type Specialty Care Team Description 08/13/2019 Nurse Visit Anti-coagulation Clinic Nurse, Vtc Antico ag 08/17/2019 Office Visit Internal Medicine Lilibeth Andrade MD [address] [address] [phone] 08/19/2019 Office Visit Psychiatry Mendez Martinez MD [address] [place] [phone] 08/24/2019 Office Visit Oncology Lincoln Griffiths MD 15[address] [place], [place] [address] [phone] 08/27/2019 Office Visit Gastroenterology Jorge Luis Mccarty MD [address] [place] [address] [phone] 09/09/2019 Office Visit Internal Medicine Lilibeth Andrade MD [address] 775 [address] [phone] 09/28/2019 Office Visit Cardiology Robert Adkins MD [address] [place] [address] [address]0 [address] [place], [place] [address] [phone] 10/12/2019 Office Visit Internal Medicine Lilibeth Andrade MD [address] [place] [address]75 15 [phone] 10/19/2019 Office Visit Endocrinology Diabetes & JonesTre MD [address] [address] [phone] 10/27/2019 Office Visit Pulmonary Disease Max Aguiar MD 146 [facility] 106 [place], [place] [address] [phone] 11/02/2019 Office Visit Internal Medicine Lilibeth Andrade MD 146 [address] [facility] [address] [place] [address] 15 [phone] 12/02/2019 Appointment Cardiac Electrophysiology Outpt-Simi, Pacemaker/Icd 12/08/2019 Office Visit Ophthalmology Yariel Tineo MD [address] [place], [place] [address]d. [place], [place] [address] Health Maintenance Due Date [...] of this encounter Implants Implanted Type Area Customer Service Voice Device Shelf Model / Identifier Expiration Serial / Date Lot Prolene Mesh MESH Right: Ethicon 12/20/2020 PMSK / Implanted: Qty: 1 on 07/04/2016 by Alfonso Martinez MD at [facility] [employer] PMSK / [id number] Pacemaker PACEMAKER Stent-06/24/2016 Implanted: 06/24/2016 (Quantity not on file) documented as of this encounter Procedures Procedure Name Priority Date/Time Associated Diagnosis Comme nts TROPONIN I STAT 08/08/2019 5:34 Chest pain, Results for this PM INVENTORY CONTROL ASSISTANT unspecified type procedure a re in the results section. PROTHROMBIN TIME / STAT 08/08/2019 4:32 Chest pain, Resul ts for this INR PM INVENTORY CONTROL ASSISTANT unspecified type procedure a re in the results section. CBC WITH DIFFERENTIAL STAT 08/08/2019 3:21 Chest pain, Re sults for this PM INVENTORY CONTROL ASSISTANT unspecified type procedure a re in the results section. N-TERMINAL PRO-BNP STAT 08/08/2019 3:21 Chest pain, Resul ts for this PM INVENTORY CONTROL ASSISTANT unspecified type procedure a re in the results section. CBC WITH DIFFERENTIAL STAT 08/08/2019 3:21 Chest pain, Re sults for this PM INVENTORY CONTROL ASSISTANT unspecified type procedure a re in the results section. COMP. METABOLIC PANEL STAT 08/08/2019 3:21 Chest pain, Re sults for this (19463) PM INVENTORY CONTROL ASSISTANT unspecified type procedure a re in the results section. TROPONIN I STAT 08/08/2019 3:21 Chest pain, Results for this PM INVENTORY CONTROL ASSISTANT unspecified type procedure a re in the results section. XR CHEST 2 VW STAT 08/08/2019 3:13 Chest pain, Results fo r this PM INVENTORY CONTROL ASSISTANT unspecified type procedure a re in the results section. EKG-12 LEAD Routine 08/08/2019 2:55 PM INVENTORY CONTROL ASSISTANT documented in this encounter Results TROPONIN I (08/08/2019 5:34 PM INVENTORY CONTROL ASSISTANT) Pathologist Sig nature TROPONIN I <0.012 <=0.034 ng/mL [facility] Specimen Blood - VENOUS Narrative Performed At Equal or Less than 0.034 ng/ml---Normal [facility] Note: Cardiac troponin begins to [...] biotin. Performing Organization Address City/State/Zipcode Phone Number [facility] CLIA: [id number], [address] [place], [place] [address] PROTHROMBIN TIME / INR (08/08/2019 4:32 PM INVENTORY CONTROL ASSISTANT) [facility] Signature PROTIME PATIENT 29.7 (H) 12.0 - 14.7 [facility] Seconds [facility] INR 3.0Comment: Normal [facility] INR <1.1; Warfarin [facility] Therapeutic range LABORATORY 2.0 to 3.0 or 2.5 to 3.5, depending upon the indications. Specimen Blood - VENOUS Performing Organization Address City/[facility] Phone Number [facility] CLIA: [id number], [address] [place] [id number] [address] CBC WITH DIFFERENTIAL (08/08/2019 3:21 PM INVENTORY CONTROL ASSISTANT) [facility] nature WBC 8.99 4.20 - 10.70 [facility] 10*3/L [facility] RBC 4.95 4.26 - 5.52 [facility] 10*6/L [facility] HGB 12.2 12.2 - 16.4 [facility] g/dL [facility] HCT 39.3 38.4 - 49.3 % [facility] MCV 79.4 (L) 81.7 - 95.6 fL [facility] MCH 24.6 (L) 26.1 - 32.7 pg [facility] MCHC 31.0 (L) 31.2 - 35.0 [facility] g/dL [facility] RDW-SD 46.5 38.5 - 51.6 fL [facility] RDW-CV 16.0 (H) 12.1 - 15.4 % [facility] PLT 298 150 - 328 [facility] 10*3/L [facility] MPV 9.6 (L) 9.8 - 13.0 fL [facility] NRBC/100 WBC 0.0 0.0 - 10.0 /100 [facility] WBCs [facility] NRBC x10^3 <0.01 10*3/L [facility] GRAN MAT (NEUT) % 73.6 % [facility] IMM GRAN % 0.70 % [facility] LYMPH % 17.2 % [facility] MONO % 6.9 % [facility] EOS % 1.3 % [facility] BASO % 0.3 % [facility] GRAN MAT x10^3(ANC) 6.61 1.99 - 6.95 [facility] 10*3/uL HOSPITAL LABORATORY IMM GRAN x10^3 0.06 0.00 - 0.06 [facility] 10*3/uL HOSPITAL LAB[facility]ATORY LYMPH x10^3 1.55 1.09 - 3.23 [facility] 10*3/uL HOSPITAL LAB[facility]ATORY MONO x10^3 0.62 0.36 - 1.02 [facility] 10*3/uL HOSPITAL LABORATORY EOS x10^3 0.12 0.06 - 0.53 [facility] 10*3/uL HOSPITAL LAB[facility]ATORY BASO x10^3 0.03 0.01 - 0.09 [facility] 10*3/uL HOSPITAL LABORATORY Specimen Blood - VENOUS Performing Organization Address City/[facility]/Zipcode Phone Number [facility] CLIA: [id number], [address] [place] [address] N-TERMINAL PRO-BNP (08/08/2019 3:21 PM INVENTORY CONTROL ASSISTANT) Pathologist Sig nature NT-proBNP 115 <=125 pg/mL [facility] Specimen Blood - VENOUS Narrative Performed At Biotin has been reported to cause a negative [facility] bias, interpret results relative to patient's use of biotin. Performing Organization Address City/[facility]/Zipcode Phone Number [facility] CLIA: [id number], [address] [place] [address] TROPONIN I (08/08/2019 3:21 PM INVENTORY CONTROL ASSISTANT) Pathologist Sig nature TROPONIN I 0.001 <=0.034 ng/mL [facility] Specimen Blood - VENOUS Narrative Performed At Equal or Less than 0.034 ng/ml---Normal [facility] Note: Cardiac troponin begins to [...] biotin. Performing Organization Address City/State/Zipcode Phone Number [facility] CLIA: [id number], [address] [place], [place] [address] COMP. METABOLIC PANEL (37597) (08/08/2019 3:21 PM INVENTORY CONTROL ASSISTANT) Pathologist Sig nature NA 142 135 - 145 [facility] mmol/L [facility] K 3.8 3.5 - 5.0 [facility] mmol/L [facility] CL 100 98 - 108 mmol/L [facility] CO2 TOTAL 32 (H) 23 - 31 mmol/L [facility] AGAP 10 2 - 16 [facility] BUN 14 7 - 23 mg/dL [facility] GLUCOSE 176 (H) 70 - 110 mg/dL [facility] CREATININE 0.91 0.60 - 1.25 [facility] mg/dL [facility] TOTAL BILI 0.4 0.1 - 1.1 mg/dL [facility] CALCIUM 9.2 8.6 - 10.6 [facility] mg/dL [facility] T PROTEIN 7.8 6.3 - 8.2 g/dL [facility] ALBUMIN 4.3 3.5 - 5.0 g/dL [facility] ALK PHOS 113 34 - 122 U/L [facility] ALTv 25 5 - 50 U/L [facility] AST(SGOT) 48 (H) 13 - 40 U/L [facility] eGFR Calculation 88.2 mL/min/1.73m2 [facility] (Non- HOSPITAL LABORATORY Zimbabwean) eGFR Calculation 106.9 mL/min/1.73m2 [facility] LABORATORY Specimen Blood - VENOUS Narrative Performed At Association of Glomerular Filtration Rate (GFR) [facility] and Staging of [...] tests). Performing Organization Address City/State/Zipcode Phone Number [facility] CLIA: [id number], [address] [place], [place] [address] XR CHEST 2 VW (08/08/2019 3:13 PM INVENTORY CONTROL ASSISTANT) Specimen Impressions Performed At No acute cardiopulmonary disease PACS/VR/DOSE RL: [id number] AF: [id number] End of report 3 :27 PM Narrative Performed At ORDERING CLINICIAN: HAIDER MELVIN PACS/VR/DOSE TECHNIQUE: 2 views of the chest were obt ained. INDICATION: Chest pain COMPARISON: CT chest 06/21/2019 DISCUSSION: There is moderate cardiomegaly without f luid overload. There is a left-sided cardiac device in stable posi tion. There are no focal consolidations, pleur al effusions or pneumothoraces. The airway is midline. The mediastinal c ontour is normal. Procedure Note [facility], Radiant Results Inft User - 2019 3:28 PM INVENTORY CONTROL ASSISTANT ORDERING CLINICIAN: HAIDER MELVIN TECHNIQUE: 2 views of the chest were obt ained. INDICATION: Chest pain COMPARISON: CT chest 06/21/2019 DISCUSSION: There is moderate cardiomegaly without f luid overload. There is a left-sided cardiac device in stable posi tion. There are no focal consolidations, pleur al effusions or pneumothoraces. The airway is midline. The mediastinal c ontour is normal. IMPRESSION No acute cardiopulmonary disease RL: [id number] AFC: [id number] End of report Performing Organization Address City/State/Zipcode Phone Number PACS/VR/DOSE documented in this encounter Visit Diagnoses Diagnosis Chest pain, unspecified type - Primary Congestive heart failure, unspecified HF chronicity, unspecified heart failure type Acute on chronic diastolic congestive he art failure Acute on chronic diastolic heart failure Anxiety Anxiety state, unspecified Angina at rest Other and unspecified angina pectoris Hypervolemia, unspecified hypervolemia t ype Pacemaker Cardiac pacemaker in situ SCHILLING (dyspnea on exertion) Other dyspnea and respiratory abnormalit y Essential hypertension Unspecified essential hypertension Type 2 diabetes mellitus without complic ation, with long-term current use of insulin documented in this encounter Administered Medications Medication Order MAR Action Action Date Dose Rate Site nitroglycerin (NITROSTAT) Given 08/08/2019 4:34 PM INVENTORY CONTROL ASSISTANT 0.4 mg sublingual tablet 0.4 mg 0.4 mg, Sublingual, Q5MIN PRN, 3 doses, Starting 08/08/19 at 1628, Until Discontinued, LIVIA, Chest pain Medication Order MAR Action Action Date Dose Rate Site clonazePAM (KLONOPIN) tablet 1 mg Given 08/08/2019 5:10 PM INVENTORY CONTROL ASSISTANT 1 mg 1 mg, Oral, ONCE, 1 dose, 08/08/19 at 1800, Routine furosemide (LASIX) injection 80 mg Given 08/08/2019 5:34 PM INVENTORY CONTROL ASSISTANT 80 mg 80 mg, IV Push, ONCE, 1 dose, 08/08/19 at 1800, LIVIA documented in this encounter Insurance Payer Benefit Plan / Subscriber ID Effective Phone Address T ainsleyjanae Group Dates [facility] [id number] 2017-Lux [phone] [address] [employer] Group nt 86 [id number] [place] [address] (Home) [place] [address] documented as of this encounter Advance Directives Name Relationship Healthcare Agent Communication Relationship Keaton Thomasjanae Spouse Primary healthcare agent Elisabeth Soliz Sibling [place] [phone] agent (Mobile)
--- OUTSIDE RECORDS SUMMARY | 2019-11-07 22:00 | XMS REPORT | Summary of Care ---
:1970 Author Organization [facility] - [facility] Address [address] [place] [address] Care Team Providers Name Role Phone Elmer Andrade MD Primary Care Provider NAVJOT Espinoza Unavailable Unavailable MD Rocco Unavailable Mary Quezada MD Unavailable Genna Anand HAT FORMING MACHINE FEEDER Unavailable Unavailable MD Casimiro Unavailable Ricardo Rodriguez DO Food Tester Reason for Visit Reason Comments Assessment Encounter Details Date Type Department Care Team Description 08/09/2019 Telephone [facility] Cardiology- Robert Adkins, Erasmo Randolph [address] [address] [facility] [id number] [place], [place] [address] [place], [place] 985[address] Allergies Active Allergy Reactions Severity Noted Date [...] as of this encounter (statuses as of 08/09/2019) Medications Medication Sig Dispensed Refills Start Date [...] for Nausea and Hyperglycemia Vomiting (N/V). Insulin [place], Use as directed, 1x 100 Each 1 [...] as of this encounter (statuses as of 08/09/2019) Active Problems Problem Noted Date SOB (shortness [...] Added automatically from request for lillian renny [id number] Syncope 04/01/2017 Chest pain, rule out acute [...] Chest pain 06/12/2016 Coronary artery disease involving [place] coronary briseyda ry of [place] heart 06/12/2016 with angina pectoris [place] (myocardial infarction) 06/12/2016 Type 2 diabetes mellitus without complication 06/12/20 16 Essential hypertension 06/12/2016 History of alcohol abuse Overview: Sober for 16 years documented as of this encounter (statuses as of 08/09/2019) Resolved Problems Problem Noted Date Resolved Date Chest pain radiating to arm 08/08/2016 08/19/2016 Abdominal pain 07/19/2016 08/19/2016 History of epidural anesthesia 07/04/2016 7 Morbid obesity with body mass index of 50 or higher 06/26/19 17 08/19/2016 Obesity (BMI 30-39.9) 06/12/2016 08/19/2016 documented as of this encounter (statuses as of 08/09/2019) Immunizations Name Administration Dates Next Due Td [...] Treatment Date Type Specialty Care Team Description 08/10/2019 Office Visit Cardiology Robert Adkins MD 301 [facility] [address] [place], [place] [address] 08/13/2019 Nurse Visit Anti-coagulation Clinic Nurse, Vtc Antico ag 08/17/2019 Office Visit Internal Medicine Lilibeth Andrade MD [address] [address] [phone] 08/19/2019 Office Visit Psychiatry Mendez Martinez MD [address] [place] [address]. [place] [phone] 08/24/2019 Office Visit Oncology Lincoln Griffiths MD 15[address] [place], [place] [address] [phone] 08/27/2019 Office Visit Gastroenterology Jorge Luis Mccarty MD [address] [place] [address] [phone] 09/09/2019 Office Visit Internal Medicine Lilibeth Andrade MD [address] [address] [phone] 09/28/2019 Office Visit Cardiology Robert Adkins MD [address] [place], [place] [address] 10/12/2019 Office Visit Internal Medicine Lilibeth Andrade MD 146 [facility] 103 [place], [place] [address] 10/19/2019 Office Visit Endocrinology Diabetes & JonesTre MD Metabolism [address] [place] [address] [phone] 10/27/2019 Office Visit Pulmonary Disease Max Aguiar MD 146 [facility] 106 [place], [place] [address] [phone] 11/02/2019 Office Visit Internal Medicine Lilibeth Andrade MD 146 [facility] 103 [place], [place] [address] [phone] 12/02/2019 Appointment Cardiac Electrophysiology Outpt-Simi, Pacemaker/Icd 12/08/2019 Office Visit Ophthalmology Yariel Tineo MD [address] [place], [place] [address]d. [place], [place] [address] Name Type Priority Associated Diagnoses Order S chedule BASIC METABOLIC PANEL LAB Routine Chronic heart failu re 1 Occurrences starting (38312)(NA, K, CL, CO2, with preserved ej ection 08/09/2019 until GLUCOSE, BUN, fraction 08/09/2020 CREATININE, CA) Health Maintenance Due Date Last Done Comments EYE EXAM 11/20/2019 11/19/2018, 11/13/2017 HgA1C 01/05/2020 07/07/2019, 05/02/2019, 02/24/2019, Additional history exists URINE MICROALBUMIN 02/07/2020 02/06/2019, 01/19/2018, 08/20/2016 PNEUMOCOCCAL 0-64 YEARS 02/24/2020 Postpone d from COMBINED SERIES ( - 1974 (Refused) PPSV23) FOOT EXAM 02/25/2020 02/24/2019, 02/24/2019, 09/22/2018, Additional history exists INFLUENZA VACCINE (#1) 2020 Postponed from 02/21/2019 (Refu sed) LDL-C 05/02/2020 05/02/2019, 07/28/2018, 01/11/2018, Additional history exists Zoster Recombinant Vaccine 05/13/2020 Postp oned from (SHINGRIX) (1 of 2) 2019 ( Insurance / Financial) CREATININE (SERUM) 08/08/2020 08/08/2019, 08/06/2019, 08/05/2019, Additional history exists COLONOSCOPY 04/22/2027 04/22/2017 DTaP,Tdap,and Td Vaccines 06/26/2027 06/26/2017, 03/19/2015 Postponed from (1 - Tdap) 1980 (Not Indicated) documented as of this encounter Implants Implanted Type Area Campaign Manager Device Shelf Model / Identifier Expiration Serial / Date Lot Prolene Mesh MESH Right: Ethicon 12/20/2020 PMSK / Implanted: Qty: 1 on 07/04/2016 by Alfonso Martinez MD at [facility] [employer] PMSK / [id number] Pacemaker PACEMAKER Stent-06/24/2016 Implanted: 06/24/2016 (Quantity not on file) documented as of this encounter Results Not on filedocumented in this encounter Visit Diagnoses Diagnosis Chronic heart failure with preserved eje ction fraction - Primary documented in this encounter Insurance Payer Benefit Plan / Subscriber ID Effective Phone Address T [facility] Group Dates [facility] [id number] 2017-Prese [phone] HMO HEALTH CHOICE HEALTH CHOICE nt 86 [phone] [place] [address] documented as of this encounter Advance Directives Name Relationship Healthcare Agent Communication Relationship Keaton Thomsajanae Spouse Primary healthcare agent Elisabeth Soliz Sibling First alternate healthcare agent (Mobile)
--- OUTSIDE RECORDS SUMMARY | 2019-11-07 22:01 | XMS REPORT | Summary of Care ---
:1970 Author Organization [facility] Address [address] [place] [address] Care Team Providers Name Role Phone Elmer Andrade MD Primary Care Provider NAVJOT Espinoza Unavailable Unavailable MD Rocco Unavailable Mary Quezada MD Unavailable Genna AnandP Unavailable Unavailable MD Casimiro Unavailable Ricardo Rodriguez DO Web Site Project Manager Reason for Visit Reason Comments LAB Encounter Details Date Type Department Care Team Description 08/10/2019 Training Facilitator Visit [facility] Robert Adkins MD [address] [facility] [id number] [place] [address] Chronic heart Professional Office 2, Adc Lab failure with Building Phlebotomy preserve d ejection Lab fraction Professional Office Building [address] [facility] , [address] [place] [address] Allergies Active Allergy Reactions Severity [...] as of this encounter (statuses as of 08/10/2019) Medications Medication Sig Dispensed Refills Start Date [...] for Nausea and Hyperglycemia Vomiting (N/V). Insulin [place], Use as directed, 1x 100 Each 1 [...] as of this encounter (statuses as of 08/10/2019) Active Problems Problem Noted Date SOB (shortness [...] Added automatically from request for lillian lawson [id number] Syncope 04/01/2017 Chest pain, rule out acute [...] Chest pain 06/12/2016 Coronary artery disease involving [place] coronary briseyda ry of [place] heart 06/12/2016 with angina pectoris [place] (myocardial infarction) 06/12/2016 Type 2 diabetes mellitus without complication 06/12/20 16 Essential hypertension 06/12/2016 History of alcohol abuse Overview: Sober for 16 years documented as of this encounter (statuses as of 08/10/2019) Resolved Problems Problem Noted Date Resolved Date Chest pain radiating to arm 08/08/2016 08/19/2016 Abdominal pain 07/19/2016 08/19/2016 History of epidural anesthesia 07/04/2016 7 Morbid obesity with body mass index of 50 or higher 06/26/19 17 08/19/2016 Obesity (BMI 30-39.9) 06/12/2016 08/19/2016 documented as of this encounter (statuses as of 08/10/2019) Immunizations Name Administration Dates Next Due Td [...] Cardiology Robert Adkins MD [address] [facility] [address] [place], [place] [address] [phone] 08/13/2019 Nurse Visit Anti-coagulation Clinic Nurse, Vtc Antico ag 08/17/2019 Office Visit Internal Medicine Lilibeth Andrade MD [address] [place] [address] 15 08/19/2019 Office Visit Psychiatry Mendez Martinez MD [address] [place] [address]. [place] [id number] 08/24/2019 Office Visit Oncology Lincoln Griffiths MD [address] [place], [place] [address] [phone] 08/27/2019 Office Visit Gastroenterology Jorge Luis Mccarty MD [address] [place] [address] [phone] 09/09/2019 Office Visit Internal Medicine Lilibeth Andrade MD [address] [address] 09/28/2019 Office Visit Cardiology Robert Adkins MD [address] [place], [place] [address] 10/12/2019 Office Visit Internal Medicine Lilibeth Andrade MD [address] [address] 10/19/2019 Office Visit Endocrinology Diabetes & JonesTre MD Metabolism [address] [place] [address] [phone] 10/27/2019 Office Visit Pulmonary Disease Max Aguiar MD 146 [facility] 106 [place], [place] [address] [phone] 11/02/2019 Office Visit Internal Medicine Lilibeth Andrade MD 146 [facility] 103 [place], [place] [address] [phone] 12/02/2019 Appointment Cardiac Electrophysiology Outpt-Simi, Pacemaker/Icd 12/08/2019 Office Visit Ophthalmology Yariel Tineo MD [address] [place], [place] [address]. [place], [place] [address] Health Maintenance Due Date [...] of this encounter Implants Implanted Type Area Gate Technician Device Shelf Model / Identifier Expiration Serial / Date Lot Prolene Mesh MESH Right: Ethicon 12/20/2020 PMSK / Implanted: Qty: 1 on 07/04/2016 by Alfonso Martinez MD at [facility] [employer] PMSK / [id number] Pacemaker PACEMAKER Stent-06/24/2016 Implanted: 06/24/2016 (Quantity not on file) documented as of this encounter Results Not on filedocumented in this encounter Visit Diagnoses Diagnosis Chronic heart failure with preserved eje ction fraction documented in this encounter Insurance Payer Benefit Plan / Subscriber ID Effective Phone Address T ype Group Dates [facility] [id number] 2017-Lux [phone] [employer] HEALTH CHOICE [id number] [place] [address] (Home) [place] [address] documented as of this encounter Advance Directives Name Relationship Healthcare Agent Communication Relationship Keaton Nelson Spouse Primary healthcare agent Elisabeth Soliz Sibling First alternate healthcare agent (Mobile)
--- OUTSIDE RECORDS SUMMARY | 2019-11-07 22:02 | XMS REPORT | Summary of Care ---
:1970 Author Organization [facility] Address [address] [place] [address] Care Team Providers Name Role Phone Elmer Andrade MD Primary Care Provider NAVJOT Espinoza Unavailable Unavailable MD Rocco Unavailable Mary Quezada MD Unavailable Genna Anand Unavailable Unavailable MD Casimiro Unavailable Ricardo Rodriguez DO Machine Installer Reason for Visit Reason Comments Orders Encounter Details Date Type Department Care Team Description 08/09/2019 Telephone [facility] Cardiology, Robert Adkins, Orders [facility] [address] [facility] 410 [address] [facility] [id number] [place] [address] [place], [place] [address] Allergies Active Allergy Reactions Severity Noted Date [...] for Nausea and Hyperglycemia Vomiting (N/V). Insulin [place], Use as directed, 1x 100 Each 1 [...] Added automatically from request for lillian lawson [id number] Syncope 04/01/2017 Chest pain, rule out acute [...] 06/12/2016 Coronary artery disease involving [place] coronary briseyda ry of [place] heart 06/12/2016 with angina pectoris [place] (myocardial infarction) 06/12/2016 Type 2 diabetes mellitus [...] Cardiology Robert Adkins MD [address] [facility] [address] [place], [place] [address] 08/13/2019 Nurse Visit Anti-coagulation Clinic Nurse, Vtc Antico ag 08/17/2019 Office Visit Internal Medicine Lilibeth Andrade MD [address] [address] [phone] 08/19/2019 Office Visit Psychiatry Mendez Martinez MD 301 [place] [address] 08/24/2019 Office Visit Oncology Lincoln Griffiths MD [address] [place], [place] [address] [phone] 08/27/2019 Office Visit Gastroenterology Jorge Luis Mccarty MD [address] [place] [address] [phone] 09/09/2019 Office Visit Internal Medicine Lilibeth Andrade MD [address] [address] [phone] 09/28/2019 Office Visit Cardiology Robert Adkins MD [address] [place], [place] [address] 10/12/2019 Office Visit Internal Medicine Lilibeth Andrade MD 146 [facility] 103 [place], [place] [address] 10/19/2019 Office Visit Endocrinology Diabetes & Jones, Tre rodriguez MD Metabolism [address] [place] [address] [phone] 10/27/2019 Office Visit Pulmonary Disease Max Aguiar MD 146 [facility] 106 [place], [place] [address] [phone] 11/02/2019 Office Visit Internal Medicine Lilibeth Andrade MD 146 [facility] 103 [place], [place] [address] 12/02/2019 Appointment Cardiac Electrophysiology Outpt-Simi, Pacemaker/Icd 12/08/2019 Office Visit Ophthalmology Yariel Tineo MD [address] [place] [address]. [place], [place] [address] Health Maintenance Due Date [...] of this encounter Implants Implanted Type Area Claims Account Manager Device Shelf Model / Identifier Expiration Serial / Date Lot Prolene Mesh MESH Right: Ethicon 12/20/2020 PMSK / Implanted: Qty: 1 on 07/04/2016 by Alfonso Martinez MD at [facility] [employer] PMSK / [id number] Pacemaker PACEMAKER Stent-06/24/2016 Implanted: 06/24/2016 (Quantity not on file) documented as of this encounter Results Not on filedocumented in this encounter Insurance Payer Benefit Plan / Subscriber ID Effective Phone Address T e Group Dates [facility] [id number] 2017-Lux [phone] [facility] [facility] [employer] HEALTH CHOICE nt [phone] [place] [address] documented as of this encounter Advance Directives Name Relationship Healthcare Agent Communication Relationship Keaton Nelson Spouse Primary healthcare agent Elisabeth Soliz Sibling First alternate healthcare agent (Mobile)
--- OUTSIDE RECORDS SUMMARY | 2019-11-07 22:04 | XMS REPORT | Summary of Care ---
:1970 Author Organization [facility] Address [address] [place] [address] Care Team Providers Name Role Phone Elmer Andrade MD Primary Care Provider NAVJOT Espinoza Unavailable Unavailable MD Rocco Unavailable Mary Quezada MD Unavailable Genna Anand Unavailable Unavailable MD Casimiro Unavailable Ricardo Rodriguez DO Microbiology Lab Analyst Reason for Visit Reason Comments Follow-up Encounter Details Date Type Department Care Team Description 08/10/2019 Office Visit [facility] Freid Adkins Chronic hear t failure with preserved ejection fraction (Primary Dx); Cardiology, [place] Breaux MD Vitamin B12 deficiency [place] [id number] [address] [id number] [phone] Allergies Active Allergy Reactions Severity Noted Date [...] 90 tablet 3 05/27/2018 Active tabletIndications: High mouth daily. plasma homocystine methocarbamol 750 mg Take 750 mg by 0 Active tablet mouth 2 (two) times daily. buprenorphine-naloxone Place 8 mg under 0 Active (SUBOXONE) 8-2 mg the tongue every sublingual film 12 (twelve) hours as needed for Pain (scale 7-10). clopidogrel (PLAVIX) 75 Take 1 tablet by 90 tablet 3 9 Active mg tablet mouth daily. atorvastatin (LIPITOR) Take 1 tablet by 90 tablet 3 10/13/2018 Active 40 mg tablet mouth at bedtime. furosemide (LASIX) 80 Take 80 mg by 0 Active mg tablet mouth every morning and evening. warfarin 10 mg tablet Take as directed 60 tablet 3 10/30/2018 Active by [facility] based on INR results. warfarin 7.5 mg tablet Take as directed 90 tablet 3 10/30/2018 Active by [facility] based on INR results. ferrous sulfate (IRON) Take 1 tablet by 270 tablet 3 9 Active 325 mg (65 mg iron) mouth 3 (three) tabletIndications: Iron times daily with deficiency anemia due meals. to chronic blood loss Cholecalciferol, Take by mouth. 0 Active Vitamin D3, (VITAMIN D3) 2,000 unit tablet polyethylene glycol Take 17 g by 238 g 3 01/26/2019 Active (MIRALAX) 17 gram/dose mouth daily. powderIndications: Constipation, unspecified constipation type allopurinol 300 mg Take 1 tablet by 90 tablet 3 02/23/2019 Active tabletIndications: Uric mouth daily. acid stone in urine metformin ER 500 mg 24 Take 1 tablet by 90 tablet 3 02/24/2019 Active hr tabletIndications: mouth daily with Type 2 diabetes breakfast. mellitus with cardiac complication dulaglutide (TRULICITY) inject 0.75 mg 4 Syringe 4 02/24/2019 Active 0.75 mg/0.5 mL under the skin PnIjIndications: Type 2 weekly. diabetes mellitus with cardiac complication KCL 20 [...] 05/15/2019 Active unit/gram 2 (two) times powderIndications: Skin daily. yeast infection nitroglycerin Place 1 tablet 1 Bottle 1 05/18/2019 Active (NITROSTAT) 0.4 mg under the tongue sublingual tablet every 5 (five) minutes as needed for Chest pain. enoxaparin 100 mg/mL inject 1 mL under 5 Syringe 0 05/26/2019 Active injectionIndications: the skin daily. PAF (paroxysmal atrial Patient needs to fibrillation) stop warfarin and start taking his Lovenox 5 days before his cardiac procedure hydrocortisone 2.5 % Apply to 454 g 11 06/01/2019 Active creamIndications: affected area(s) Seborrheic dermatitis 2 (two) times daily. If Insurance does not cover the jar then give tubes of cream. PROMETHAZINE 25 mg TAKE 1 TABLET BY 30 tablet 11 06/06/2019 Active tabletIndications: MOUTH EVERY SIX Non-intractable HOURS NEEDED vomiting with nausea, FOR NAUSEA OR unspecified vomiting VOMITING type testosterone (ANDROGEL) Apply 2 Pumps to 75 g 3 9 Active 20.25 mg/1.25 gram area(s) daily. (1.62 %) gel pumpIndications: Low testosterone enoxaparin 100 mg/mL inject 1.3 mL 3 Syringe 0 06/03/2019 Active injectionIndications: under the skin Chronic pulmonary daily. embolism without acute cor pulmonale, unspecified pulmonary embolism type cyanocobalamin (VITAMIN 1 mL by 12 mL 3 06/18/2019 Active B-12) 1,000 mcg/mL Intramuscular injectionIndications: route every 2 Vitamin B12 deficiency (two) weeks. clindamycin 1 % Apply to 60 mL 6 06/11/2019 Act rosetta solutionIndications: affected area(s) Folliculitis 2 (two) times daily. urea 40 % Apply to area(s) 198 g 6 06/11/2019 A ctive creamIndications: daily. Xerosis cutis ondansetron (ZOFRAN Take 1 tablet by 14 tablet 0 06/23/2019 Active ODT) 4 mg mouth every 8 disintegrating (eight) hours as tabletIndications: needed for Nausea Hyperglycemia and Vomiting (N/V). Insulin [place], Use as directed, 100 Each 1 06/25/2019 Active Disposable, (RELION PEN 1x daily, NEEDLES) 32 gauge x DX:E11.9 " Ndle Insulin Glargine inject 12-14 3 mL 0 07/07/2019 Active (LANTUS SOLOSTAR U-100 Units under the INSULIN) 100 unit/mL (3 skin daily. mL) injection ARIPiprazole 15 mg Take 1 tablet by [...] 60 tablet 1 07/15/2019 Active succinate (PRISTIQ) 100 mouth daily. mg 24 hr tabletIndications: Severe episode of recurrent major depressive disorder, without psychotic features, Generalized anxiety disorder pantoprazole 40 mg EC Take 1 tablet by 180 tablet 0 07/21/2019 Active tablet mouth 2 (two) times daily. metOLazone 2.5 mg Take 1 tablet by 30 tablet 2 08/10/2019 Active tabletIndications: mouth every Mon, Vitamin B12 deficiency Tues, Wed and Fri in the evening. eplerenone 25 mg Take 2 tablets by 60 tablet 3 08/10/2019 Active tabletIndications: mouth daily. Chronic heart failure with preserved ejection fraction aMILoride 5 mg Take 1 tablet by 60 tablet 2 11/02/201807/24 Discontinued tabletIndications: mouth 2 (two) 02/09 (Alternate Hypokalemia times daily. 20 thera py) metOLazone 2.5 mg Take 1 tablet by 10 tablet 2 07/15/201907/24 Discontinued tabletIndications: mouth 2 (two) 02/09 (Reorder) Vitamin B12 deficiency times weekly on 2 0 Friday and . documented as of this encounter (statuses as [...] Added automatically from request for lillian renny [id number] Syncope 04/01/2017 Chest pain, rule out acute [...] Chest pain 06/12/2016 Coronary artery disease involving [place] coronary briseyda ry of [place] heart 06/12/2016 with angina pectoris AK (myocardial [...] Sign Reading Time Taken Comments Blood Pressure 99/66 08/10/2019 2:37 PM BATTERY PARTS ASSEMBLER Pulse 81 08/10/2019 2:37 PM BATTERY PARTS ASSEMBLER Temperature - - Respiratory Rate - - Oxygen Saturation 93% 08/10/2019 2:37 PM BATTERY PARTS ASSEMBLER Inhaled Oxygen Concentration - - Weight 129.7 kg (286 lb) 08/10/2019 2:37 PM BATTERY PARTS ASSEMBLER Height 177.8 cm (5' 10") 08/10/2019 2:37 PM BATTERY PARTS ASSEMBLER Body Mass Index 41.04 08/10/2019 2:37 PM BATTERY PARTS ASSEMBLER documented in this encounter Progress Notes Chiquis Mcadams MD - 08/10/2019 2:30 PM CST HEART FAILURE CLINIC NOTE Reason for Referral/Presenting Complaint: follow up for CHF History of Present Illness: This is a 49 years old male with PMH HFpEF, DM, HTN, obesity, GREGORIO, pAfib, CAD STEMI in 11/2015 treated with RCA PCI, PE on coumadin and symptomatic bradycardia s/p pacemaker placement 10/07 presents forF/U. HE said he still has some SOB. He gained 7 IB in this month. HE took Metolazone dose yesterday and he already lost 3 IB. He was having low K but he mentioned he has had GE too at that moment. Review of Systems: Other systems' components are negative except for what was mentioned above. Past Medical History: Past Medical History: Diagnosis Date AAA (abdominal aortic aneurysm) 3 cm Anxiety CHF (congestive heart failure) 2-liter fluid restriction; Dr. Valiente is client delivery specialist Degenerative disc disease, lumbar on CT scan Depression Diabetes Hernia s/p surgery 06/2016 History of alcohol abuse Stopped 1999 History of pernicious anemia HLD (hyperlipidemia) Hypertension Kidney stones calcium oxalate Lung nodule largest was 7mm on CT scan in 07/2017. smoking history. will need repeat in 6-12 months. AK (myocardial infarction) November 2015, 1 stent in RCA Microcytic anemia low MCV 2016 Right bundle branch block Uveitis Current Medications: Current Outpatient Medications Medication Sig Dispense Refill pantoprazole 40 mg EC tablet Take 1 tablet by mouth 2 (two) times daily. 180 tablet 0 ARIPiprazole 15 mg tablet Take 1 tablet by mouth daily. 30 tablet 1 clonazePAM 1 mg tablet Take 1 pill PO in the AM, 1 PO in the afternoon, 1 pill PO in the evening. May take additional 1 pill as needed acute anxiety. 120 tablet 1 desvenlafaxine succinate (PRISTIQ) 100 mg 24 hr tablet Take 2 tablets by mouth daily. 60 tablet 1 metOLazone 2.5 mg tablet Take 1 tablet by mouth 2 (two) times weekly on Friday and . 10 tablet 2 Insulin Glargine (LANTUS SOLOSTAR U-100 INSULIN) 100 unit/mL (3 mL) injection inject 12-14 Unitsunder the skin daily. 3 mL 0 Insulin [place], Disposable, (RELION PEN NEEDLES) 32 gauge x 5/32" Ndle Use as directed, 1x daily, DX:E11.9 100 Each 1 ondansetron (ZOFRAN ODT) 4 mg disintegrating tablet [...] Apply to area(s) daily. 198 g 6 PROMETHAZINE 25 mg tablet TAKE 1 TABLET BY MOUTH EVERY SIX HOURS NEEDED FOR NAUSEA OR VOMITING 30 tablet 11 enoxaparin 100 mg/mL injection inject 1.3 mL under the skin daily. 3 Syringe 0 testosterone (ANDROGEL) 20.25 mg/1.25 gram (1.62 %) gel pump Apply 2 Pumps to area(s) daily. 75 g 3 hydrocortisone 2.5 % cream Apply to affected area(s) 2 (two) times daily. If Insurance does notcover the jar then give tubes of cream. 454 g 11 enoxaparin 100 mg/mL injection inject 1 mL under the skin daily. Patient needs to stop warfarin and start taking his Lovenox 5 days before his cardiac procedure 5 Syringe 0 nitroglycerin (NITROSTAT) 0.[address] 1 tablet under the tongue every 5 (five) minutes as needed for Chest pain. 1 Bottle 1 nystatin 100,000 unit/gram powder Apply to area(s) 2 (two) times daily. 60 g 11 ZINC ORAL Take by mouth. Ranolazine 1,000 mg tablet Take 1 tablet by mouth 2 (two) times daily. 60 tablet 4 KCL 20 mEq tablet Take 3 tablets [...] g by mouth daily. 238 g 3 ferrous sulfate (IRON) 325 mg (65 [...] Last attempt to quit: 06/26/2014 Years since quittin.1 Smokeless tobacco: Never Used Tobacco comment: quit in 2013 Substance and Sexual Activity Alcohol use: No Alcohol/week: 0.0 standard drinks Drug use: No Sexual activity: Yes Partners: Female Lifestyle Physical activity: Days per week: Not on file Minutes per session: Not on file Stress: Not on file Relationships Social connections: Talks on phone: Not on file Gets together: Not on file Attends confucianism service: Not on file Active member of [...] which kind Leukemia Maternal Uncle Physical Examination: Vitals: 08/10/19 1437 BP: 99/66 Pulse: 81 SpO2: 93% Weight: 286 lb (129.7 kg) Height: 5' 10" (1.778 m) Constitutional: awake and alert, not in any obvious distress ENT: normocephalic atraumatic, supple, no lymphadenopathy, no bruits Lungs: clear to auscultation bilaterally Cardiovascular: S1, S2 normal, regular; no murmurs, rubs or gallops GI: soft; non-tender; not distended; normoactive bowel sounds : not examined Musculoskeletal: Extremities: no clubbing, cyanosis. Bilateral LE edema +1 Skin: no rashes but hyperpigmented skin Neuro: no focal deficits Echocardiogram 10/06/2018: Interpretation Summary A two-dimensional transthoracic echocardiogram with M-mode and Doppler was performed. The study was technically difficult. Compared to prior study, there is no significant change. Left ventricular systolic function is normal. Ejection Fraction = 55-60%. Diastolic dysfunction. Contrast was injected, however poor injection was noticed. Cant r/o A Cardiac Cath: 11/2015--STEMI--RCA PCI with Promus 3.5 [...] stent patent. -Aggressive medical rx for CAD. [facility] 12/2017--No significant stenosis. Nuclear stress test--01/05/2019 IMPRESSION Left ventricular inferior wall has a moderate and severe deficit that is fixed, appears a scar from prior myocardial infarct. There is no reversible defect to suspect ischemia. Normal left ventricular function. Assessment/Plan: 1- Chronic HFpEF ( EF 50-55%), NYHA class III, stage C: - Euvolemic on exam. - Keep him On lasix 80 mg BID and Amiloride. -Will keep Metolazone 2.5 mg PO MWF - Will DC amiloride and start Eplernone 25 mg PO daily - BMP in 1 week 2- CAD s/p RCA PCI 11/2015 - Recent stress test negative - Several LHCs showed no significant stenosis. - Continue with plavix/lipitor. - Continue with ranexa 1000 mg BID. 3- GREGORIO: -On C-PAP. 4- Bradycardia s/p pacemaker -F/U with EP Education and Counseling Importance of medication compliance. Daily weights/blood pressures Low salt and low cholesterol diet Symptom notification shortness of breath and weight gain. Activity As tolerated Exercise As tolerated. Plan discussed in detail and all issues addressed. Provided opportunity to answer questions. Patientverbalized understanding of treatment plan. Patient was seen and discussed with Dr. Jed Mcadams. Advanced Heart Failure And Heart Transplant Fellow. PGY4 Pager:- [phone] documented in this encounter Plan of Treatment Date Type Specialty Care Team Description 08/13/2019 Nurse Visit Anti-coagulation Clinic Nurse, Vtc Antico ag 08/17/2019 Office Visit Internal Medicine Lilibeth Andrade MD [address] [address] [phone] 08/19/2019 Office Visit Psychiatry Mendez Martinez MD [address] [place], [place] [address]d. [place] [phone] 08/24/2019 Office Visit Oncology Lincoln Griffiths MD [address] [place], [place] [address] [phone] 08/27/2019 Office Visit Gastroenterology Jorge Luis Mccarty MD [address] [place] [address] [phone] 09/09/2019 Office Visit Internal Medicine Lilibeth Andrade MD [address] [place] [address] 77 15 10/12/2019 Office Visit Internal Medicine Lilibeth Andrade MD [address] [place] [address] 77 15 10/19/2019 Office Visit Endocrinology Diabetes & Tre Jones MD Metabolism [address] [place] [address] [phone] 10/27/2019 Office Visit Pulmonary Disease Max Aguiar MD [address] [place] [address] 15 [phone] 11/02/2019 Office Visit Internal Medicine Lilibeth Andrade MD [address] [place] [address] 15 12/02/2019 Appointment Cardiac Electrophysiology Outpt-Simi, Pacemaker/Icd 12/08/2019 Office Visit Ophthalmology Yariel Tineo MD [address] [place] [address] [address] [place], [place] [address] 02/08/2020 Office Visit Cardiology Robert Adkins MD [address] [place], [place] [address] Name Type Priority Associated Diagnoses Order S chedule BASIC METABOLIC PANEL LAB Routine Chronic heart failu re Expected: 08/10/2019, (04322)(NA, K, CL, CO2, with preserved ej ection Expires: 08/10/2020 GLUCOSE, BUN, fraction CREATININE, CA) Health Maintenance [...] of this encounter Implants Implanted Type Area Pilot Plant Technician Device Shelf Model / Identifier Expiration Serial / Date Lot Prolene Mesh MESH Right: Ethicon 12/20/2020 PMSK / Implanted: Qty: 1 on 07/04/2016 by Alfonso Martinez MD at [facility] [employer] PMSK / [id number] Pacemaker PACEMAKER Stent-06/24/2016 Implanted: 06/24/2016 (Quantity not on file) documented as of this encounter Results Not on filedocumented in this encounter Visit Diagnoses Diagnosis Chronic heart failure with preserved eje ction fraction - Primary Vitamin B12 deficiency Other B-complex deficiencies documented in this encounter Insurance Payer Benefit Plan / Subscriber ID Effective Phone Address T e Group Dates [facility] [id number] 2017-Prese [phone] HMO HEALTH CHOICE HEALTH CHOICE nt [phone] [place] [address] (Home) [place] [address] documented as of this encounter Advance Directives Name Relationship Healthcare Agent Communication Relationship Keaton Jonilynne Spouse Primary healthcare agent Elisabeth Soliz Sibling [facility] healthcare agent (Mobile)
--- OUTSIDE RECORDS SUMMARY | 2019-11-07 22:04 | XMS REPORT | Summary of Care ---
:1970 Author Organization [facility] Address [address] [place] [address] Care Team Providers Name Role Phone Elmer Andrade MD Primary Care Provider NAVJOT Espinoza Unavailable Unavailable MD Rocco Unavailable Mary Quzeada MD Unavailable Genna Anand Unavailable Unavailable MD Casimiro Unavailable Ricardo Rodriguez DO Production Zone Leader Reason for Visit Reason Comments Follow-up Encounter Details Date Type Department Care Team Description 08/10/2019 Office Visit [facility] Fredi Adkins Chronic hear t failure with preserved ejection fraction (Primary Dx); Cardiology, AndrewsKt Breaux MD Vitamin B12 deficiency [place] [id number] [address] [address] [phone] Allergies Active Allergy Reactions Severity Noted Date [...] for Nausea Hyperglycemia and Vomiting (N/V). Insulin [place], Use as directed, 100 Each 1 06/25/2019 [...] Added automatically from request for lillian renny [id number] Syncope 04/01/2017 Chest pain, rule out acute [...] Chest pain 06/12/2016 Coronary artery disease involving [place] coronary briseyda ry of [place] heart 06/12/2016 with angina pectoris [place] (myocardial [...] Comments Blood Pressure 99/66 08/10/2019 2:37 PM PRESS TECHNICIAN Pulse 81 08/10/2019 2:37 PM PRESS TECHNICIAN Temperature - - Respiratory Rate - - Oxygen Saturation 93% 08/10/2019 2:37 PM PRESS TECHNICIAN Inhaled Oxygen Concentration - - Weight 129.7 kg (286 lb) 08/10/2019 2:37 PM PRESS TECHNICIAN Height 177.8 cm (5' 10") 08/10/2019 2:37 PM PRESS TECHNICIAN Body Mass Index 41.04 08/10/2019 2:37 PM PRESS TECHNICIAN documented in this encounter Progress Notes Chiquis [...] failure) 2-liter fluid restriction; 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 smoking history. will need repeat in 6-12 months. HI (myocardial infarction) November 2015, 1 stent in [...] the skin daily. 3 mL 0 Insulin [place], Disposable, (RELION PEN NEEDLES) 32 gauge x [...] file Gets together: Not on file Attends hoahaoism service: Not on file Active member of [...] stent patent. -Aggressive medical rx for CAD. [facility] 12/2017--No significant stenosis. Nuclear stress test--01/05/2019 IMPRESSION [...] Failure And Heart Transplant Fellow. PGY4 Pager:- [phone] documented in this encounter Plan of Treatment Date Type Specialty Care Team Description 08/13/2019 Nurse Visit Anti-coagulation Clinic Nurse, Vtc Antico ag 08/17/2019 Office Visit Internal Medicine Lilibeth Andrade MD [address] [address] [phone] 08/19/2019 Office Visit Psychiatry Mendez Martinez MD [address] [place], [place] [address]d. [place] [phone] 08/24/2019 Office Visit Oncology Lincoln Griffiths MD [address] [place], [place] [address] [phone] 08/27/2019 Office Visit Gastroenterology Jorge Luis Mccarty MD [address] [place] [address] [phone] 09/09/2019 Office Visit Internal Medicine Lilibeth Andrade MD [address] [place] [address] 77 15 10/12/2019 Office Visit Internal Medicine Lilibeth Andrade MD [address] [place] [address] 15 10/19/2019 Office Visit Endocrinology Diabetes & Tre Jones MD Metabolism [address] [place] [address] [phone] 10/27/2019 Office Visit Pulmonary Disease Max Aguiar MD [address] [place] [address] 77 15 [phone] 11/02/2019 Office Visit Internal Medicine Lilibeth Andrade MD [address] [place] [address] 12/02/2019 Appointment Cardiac Electrophysiology Outpt-Simi, Pacemaker/Icd 12/08/2019 Office Visit Ophthalmology Yariel Tineo MD [address] [place] [address] [address] [place], [place] [address] 02/08/2020 Office Visit Cardiology Robert Adkins MD [address] [place], [place] [address] Name Type Priority Associated Diagnoses Order S chedule BASIC METABOLIC PANEL LAB Routine Chronic heart failu re Expected: 08/10/2019, (64249)(NA, K, CL, CO2, with preserved ej ection [...] of this encounter Implants Implanted Type Area Comb Machine Operator Device Shelf Model / Identifier Expiration Serial / Date Lot Prolene Mesh MESH Right: Ethicon 12/20/2020 PMSK / Implanted: Qty: 1 on 07/04/2016 by Alfonso Martinez MD at [facility] [employer] PMSK / [id number] Pacemaker PACEMAKER Stent-06/24/2016 Implanted: 06/24/2016 (Quantity not [...] HIM [facility] [id number] 2017-Prese [phone] HMO HEALTH CHOICE HEALTH CHOICE nt [phone] [place] [address] (Home) [place] [address] documented as of this encounter Advance Directives Name Relationship Healthcare Agent Communication Relationship Keaton Jonilynne Spouse Primary healthcare agent Elisabeth Soliz Sibling [facility] healthcare agent (Mobile)
--- OUTSIDE RECORDS SUMMARY | 2019-11-07 22:06 | XMS REPORT | Summary of Care ---
:1970 Author Organization [facility] - Health Address [address] [place] [address] Care Team Providers Name Role Phone Elmer Andrade MD Primary Care Provider NAVJOT Espinoza Unavailable Unavailable MD Rocco Unavailable Mary Quezada MD Unavailable Genna Anand Unavailable Unavailable MD Casimiro Unavailable Ricardo Rodriguez DO Sales Activity Manager Encounter Details Date Type Department Care Team Description 08/06/2019 Orders Only [facility] Doctor Unassigned, No [address] [facility] [place] [address] [address] [place] [id number] Allergies Active Allergy Reactions Severity Noted Date [...] as of this encounter (statuses as of 08/12/2019) Medications Medication Sig Dispensed Refills Start Date [...] 0 Active tablet every morning and evening. warfarin 10 mg tablet Take as directed by 60 tablet 3 10/31/19 19 Active [facility] based on INR results. warfarin 7.5 mg tablet Take as directed by 90 tablet 3 019 Active [facility] based on INR results. ferrous sulfate (IRON) 325 Take 1 tablet by mouth 270 tablet 3 11/06/2018 Active mg (65 mg iron) 3 (three) times daily tabletIndications: Iron with meals. deficiency anemia due to chronic blood loss Cholecalciferol, Vitamin D3, Take by mouth. 0 Active (VITAMIN D3) 2,000 unit tablet polyethylene glycol Take 17 g by mouth 238 g 3 01/26/2019 Active (MIRALAX) 17 gram/dose daily. powderIndications: Constipation, unspecified constipation type allopurinol 300 mg Take 1 tablet by mouth 90 tablet 3 02/24/20 19 Active tabletIndications: Uric acid daily. stone in [...] 20 mEq Take 3 tablets by mouth 180 tablet 2 03/03/2019 Active tabletIndications: Acute on 3 (three) times daily. chronic diastolic congestive heart failure, Hypopotassemia Ranolazine 1,000 mg tablet Take 1 tablet by mouth 60 tablet 4 05/07/2019 Active 2 (two) times daily. ZINC ORAL Take by mouth. 0 Acti ve nystatin 100,000 unit/gram Apply to area(s) 2 60 g 11 Active powderIndications: Skin (two) times daily. yeast infection nitroglycerin (NITROSTAT) Place 1 tablet under 1 Bottle 1 Active 0.4 mg sublingual tablet the tongue every 5 (five) minutes as needed for Chest pain. enoxaparin 100 mg/mL inject 1 mL under the 5 Syringe 0 019 Active injectionIndications: PAF skin daily. Patient (paroxysmal atrial needs to stop warfarin fibrillation) and start taking his Lovenox 5 days before his cardiac procedure hydrocortisone 2.5 % Apply to affected 454 g 11 06/01/2019 Active creamIndications: Seborrheic area(s) 2 (two) times dermatitis daily. If Insurance does not cover the jar then give tubes of cream. PROMETHAZINE 25 mg TAKE 1 TABLET BY MOUTH 30 tablet 11 06/06/20 19 Active tabletIndications: EVERY SIX HOURS Non-intractable vomiting NEEDED FOR NAUSEA OR with nausea, unspecified VOMITING vomiting type testosterone (ANDROGEL) Apply 2 Pumps to 75 g 3 9 Active 20.25 mg/1.25 gram (1.62 %) area(s) daily. gel pumpIndications: Low testosterone enoxaparin 100 mg/mL [...] (two) times Folliculitis daily. urea 40 % creamIndications: Apply to area(s) 198 g 6 05/24 Active Xerosis cutis daily. ondansetron (ZOFRAN ODT) 4 Take 1 tablet by mouth 14 tablet 0 06/23/2019 Active mg disintegrating every 8 (eight) hours tabletIndications: as needed for Nausea Hyperglycemia and Vomiting (N/V). Insulin [place], Disposable, Use as directed, 1x 100 Each 1 0 06/25/2019 Active (RELION PEN NEEDLES) 32 daily, DX:E11.9 gauge x 5/32" Ndle Insulin Glargine (LANTUS inject 12-14 Units 3 mL 0 2019 Active SOLOSTAR U-100 INSULIN) 100 under the skin daily. unit/mL (3 mL) injection ARIPiprazole 15 mg Take 1 tablet by mouth 30 tablet 1 07/15/19 20 Active tabletIndications: daily. Generalized anxiety disorder, Panic disorder without agoraphobia, Severe episode of recurrent major depressive disorder, without psychotic features clonazePAM 1 mg Take 1 pill PO in the 120 tablet 1 07/15/2019 Active tabletIndications: AM, 1 PO in the Generalized anxiety afternoon, 1 pill PO in disorder, Panic disorder the evening. May take without agoraphobia additional 1 pill as needed acute anxiety. desvenlafaxine succinate Take 2 tablets by mouth 60 tablet 1 0 07/15/2019 Active (PRISTIQ) 100 mg 24 hr daily. tabletIndications: Severe episode of recurrent major depressive disorder, without psychotic features, Generalized anxiety disorder pantoprazole 40 mg EC tablet Take 1 tablet by mouth 180 tablet 0 07/21/2019 Active 2 (two) times daily. documented as of this encounter (statuses as of 08/12/2019) Active Problems Problem Noted Date SOB (shortness [...] Added automatically from request for lillian lawson [id number] Syncope 04/01/2017 Chest pain, rule out acute [...] Chest pain 06/12/2016 Coronary artery disease involving [place] coronary briseyda ry of [place] heart 06/12/2016 with angina pectoris [place] (myocardial infarction) 06/12/2016 Type 2 diabetes mellitus without complication 06/12/20 16 Essential hypertension 06/12/2016 History of alcohol abuse Overview: Sober for 16 years documented as of this encounter (statuses as of 08/12/2019) Resolved Problems Problem Noted Date Resolved Date Chest pain radiating to arm 08/08/2016 08/19/2016 Abdominal pain 07/19/2016 08/19/2016 History of epidural anesthesia 07/04/2016 7 Morbid obesity with body mass index of 50 or higher 06/26/19 17 08/19/2016 Obesity (BMI 30-39.9) 06/12/2016 08/19/2016 documented as of this encounter (statuses as of 08/12/2019) Immunizations Name Administration Dates Next Due Td [...] Visit Internal Medicine Lilibeth Andrade MD [address] [place] [address] 15 [phone] 08/19/2019 Office Visit Psychiatry Osmar Meza MD [address] [place] [address] [phone] Mendez Martinez MD [address] [place] [address] [phone] 08/24/2019 Office Visit Oncology Lincoln Griffiths MD [address] [place] [address] 0 [phone] 08/27/2019 Office Visit Gastroenterology Jorge Luis Mccarty MD [address] [place] [address] [phone] 09/09/2019 Office Visit Internal Medicine Lilibeth Andrade MD [address] [place] [address] 15 10/12/2019 Office Visit Internal Medicine Lilibeth Andrade MD [address] [place] [address] 15 10/19/2019 Office Visit Endocrinology Diabetes & Tre Jones MD [address] [address] [phone] 10/27/2019 Office Visit Pulmonary Disease Max Aguiar MD [address] [place] [address] 106 [place], [place] [address] [phone] 11/02/2019 Office Visit Internal Medicine Lilibeth Andrade MD [address] [place], [place] [address] [phone] 12/02/2019 Appointment Cardiac Electrophysiology Outpt-Simi, Pacemaker/Icd 12/08/2019 Office Visit Ophthalmology Yariel Tineo MD [address] [place], [place] [address] 02/08/2020 Office Visit Cardiology Robert Adkins MD [address] [place], [place] [address] Health Maintenance Due Date Last Done Comments [...] 2019 ( Insurance / Financial) CREATININE (SERUM) 08/10/2020 08/10/2019, 08/08/2019, 08/06/2019, Additional history exists COLONOSCOPY 04/22/2027 04/22/2017 DTaP,Tdap,and Td Vaccines 06/26/2027 06/26/2017, 03/19/2015 Postponed from (1 - Tdap) 1980 (Not Indicated) documented as of this encounter Implants Implanted Type Area Hand Outside Cutter Device Shelf Model / Identifier Expiration Serial / Date Lot Prolene Mesh MESH Right: Ethicon 12/20/2020 PMSK / Implanted: Qty: 1 on 07/04/2016 by Alfonso Martinez MD at [facility] [employer] PMSK / [id number] Pacemaker PACEMAKER Stent-06/24/2016 Implanted: 06/24/2016 (Quantity not on file) documented as of this encounter Procedures Procedure Name Priority Date/Time Associated Diagnosis Comme nts AGREEMENTS AUTHORIZATIONS Routine 08/06/2019 12:01 AM AND IRREVOCABLE WASTE MANAGEMENT SPECIALIST ASSIGNMENTS (FORM 2001) documented in this encounter Results Not on filedocumented in this encounter Insurance Payer Benefit Plan / Subscriber ID Effective Phone Address T ype Group Dates HIM [facility] [id number] 2017-Lux [phone] [employer] nt 86 [phone] [place] [address] documented as of this encounter Advance Directives Name Relationship Healthcare Agent Communication Relationship Keaton Leslie Spouse Primary healthcare agent Elisabeth Soliz Sibling First [facility] healthcare [phone] agent (Mobile)
--- OUTSIDE RECORDS SUMMARY | 2019-11-07 22:07 | XMS REPORT | Summary of Care ---
:[address] [facility] - Health Address [address] [place] [address] Care Team Providers Name Role Phone Elmer Andrade MD Primary Care Provider NAVJOT Espinoza Unavailable Unavailable MD Rocco Unavailable Mary Quezada MD Unavailable Genna Anand Unavailable Unavailable MD Casimiro Unavailable Ricardo Rodriguez DO Senior Director Marketing Encounter Details Date Type Department Care Team Description 08/10/[address] [facility] Doctor Unassigned, No [address] [facility] [place] [address] [address] [place] [address] Allergies Active Allergy Reactions Severity Noted Date [...] for Nausea Hyperglycemia and Vomiting (N/V). Insulin [place], Disposable, Use as directed, 1x 100 Each [...] 0 07/21/2019 Active 2 (two) times daily. metOLazone 2.5 mg Take 1 tablet by mouth 30 tablet 2 0 Active tabletIndications: Vitamin every Mon, Tues, Wed B12 deficiency and Fri in the evening. eplerenone 25 mg Take 2 tablets by mouth 60 tablet 3 0 Active tabletIndications: Chronic daily. heart failure with preserved ejection fraction documented as of this encounter (statuses as [...] Added automatically from request for lillian lawson [id number] Syncope 04/01/2017 Chest pain, rule out acute [...] Chest pain 06/12/2016 Coronary artery disease involving [place] coronary briseyda ry of [place] heart 06/12/2016 with angina pectoris [place] (myocardial infarction) 06/12/2016 [...] Smokeless Tobacco: Never Used Comments: quit in 2014 Alcohol Use Drinks/Week oz/Week Comments No 0 [...] Office Visit Internal Medicine Lilibeth Andrade MD [address] [place] [address] [phone] 08/19/2019 Office Visit Psychiatry Osmar Meza MD [address] [place] [address] [phone] Mendez Martinez MD [address] [place] [phone] 08/24/2019 Office Visit Oncology Lincoln Griffiths MD [address] [place] [address] 0 [phone] 08/27/2019 Office Visit Gastroenterology Jorge Luis Mccarty MD [address] [place] [address] [phone] 09/09/2019 Office Visit Internal Medicine Lilibeth Andrade MD [address] [place] [address] 15 [phone] 10/12/2019 Office Visit Internal Medicine Lilibeth Andrade MD [address] [place] [address] 15 [phone] 10/19/2019 Office Visit Endocrinology Diabetes & JonesTre MD [address] [address] [phone] 10/27/2019 Office Visit Pulmonary Disease Max Aguiar MD [address] [facility] 106 [place], [place] [address] [phone] 11/02/2019 Office Visit Internal Medicine Lilibeth Andrade MD [address] [facility] 103 [place], [place] [address] [phone] 12/02/2019 Appointment Cardiac Electrophysiology Outpt-Simi, Pacemaker/Icd 12/08/2019 Office Visit Ophthalmology Yariel Tineo MD [address] [place] [address] [address] [place], [place] [address] 02/08/2020 Office Visit Cardiology Robert Adkins MD [address] [place], [place] [address] Health Maintenance Due Date [...] of this encounter Implants Implanted Type Area Pumper Gager Apprentice Device Shelf Model / Identifier Expiration Serial / Date Lot Prolene Mesh MESH Right: Ethicon 12/20/2020 PMSK / Implanted: Qty: 1 on 07/04/2016 by Alfonso Martinez MD at [facility] [employer] PMSK / [id number] Pacemaker PACEMAKER Stent-06/24/2016 Implanted: 06/24/2016 (Quantity not on file) documented as of this encounter Procedures Procedure Name Priority Date/Time Associated Diagnosis Comme nts AGREEMENTS AUTHORIZATIONS Routine 08/10/2019 12:01 AM AND IRREVOCABLE MATHEMATICS PROFESSOR ASSIGNMENTS (FORM 2000) documented in this encounter Results Not on filedocumented in this encounter Insurance Payer Benefit Plan / Subscriber ID Effective Phone Address T [facility] Dates HIM [facility] [id number] 2017-Lux [phone] [address] Fixed - Parking [employer] [facility] [employer] [place] [facility] nt 86 [phone] [place] [address] documented as of this encounter Advance Directives Name Relationship Healthcare Agent Communication Relationship Pandagutierrez Nelson Spouse Primary healthcare agent Elisabeth Soliz Sibling First alternate healthcare agent (Mobile)
--- OUTSIDE RECORDS SUMMARY | 2019-11-07 22:08 | XMS REPORT | Summary of Care ---
:1970 Author Organization [facility] - [facility] Address [address] [place] [address] Care Team Providers Name Role Phone Elmer Andrade MD Primary Care Provider NAVJOT Espinoza Unavailable Unavailable MD Rocco Unavailable Mary Quezada MD Unavailable Genna Anand PICKLING SOLUTION MAKER Unavailable Unavailable MD Casimiro Unavailable Ricardo Rodriguez DO Poultry Helper Reason for Visit Reason Comments Rx Concern/Question LAB WORK Encounter Details Date Type Department Care Team Description 08/11/2019 Telephone [facility] Cardiology- Robert Adkins Concern/Question; Hull MD Namita LAB WORK [address] [place] [address] [facility] [address] [place] [address] [id number] Allergies Active Allergy Reactions Severity Noted Date [...] for Nausea Hyperglycemia and Vomiting (N/V). Insulin [place], Use as directed, 100 Each 1 06/25/2019 [...] Active tablet mouth 2 (two) times daily. eplerenone 25 mg Take 2 tablets by 60 tablet 3 08/10/2019 Active tabletIndications: mouth daily. Chronic heart failure with preserved ejection fraction metOLazone 2.5 mg Take 1 tablet by 15 tablet 2 08/13/2019 Active tabletIndications: mouth every Vitamin B12 deficiency Friday, Friday and Friday. metOLazone 2.5 mg Take 1 tablet by 30 tablet 2 08/10/201907/25 Discontinued tabletIndications: mouth every Fri, (Reorder) Vitamin B12 deficiency , Fri and Fri in the evening. documented as of this encounter (statuses [...] Added automatically from request for lillian lawson [id number] Syncope 04/01/2017 Chest pain, rule out acute [...] Coronary artery disease involving [place] coronary briseyda ry of [place] heart 06/12/2016 with angina pectoris [place] (myocardial [...] 08/13/2019 Nurse Visit Anti-coagulation Clinic Nurse, Christen brooks 08/17/2019 Office Visit Internal Medicine Lilibeth Andrade MD [address] [place] [address] [phone] 08/19/2019 Office Visit Psychiatry Osmar Meza MD [address] [place] [address] [phone] Mendez Martinez MD [address] [place] [address]. [place] [address] 08/24/2019 Office Visit Oncology Lincoln Griffiths MD [address] [place], [place] [address] [phone] 08/27/2019 Office Visit Gastroenterology Jorge Luis Mccarty MD [address] [place] [address] [phone] 09/09/2019 Office Visit Internal Medicine Lilibeth Andrade MD [address] [place] [address] [phone] 10/12/2019 Office Visit Internal Medicine Lilibeth Andrade MD [address] [facility] 103 [place], [place] [address] [phone] 10/19/2019 Office Visit Endocrinology Diabetes & Jones, Tre rodriguez MD [facility] [address] [place] [address] [phone] 10/27/2019 Office Visit Pulmonary Disease Max Aguiar MD [address] [facility] 106 [place], [place] [address] [phone] 11/02/2019 Office Visit Internal Medicine Lilibeth Andrade MD [address] [facility] 103 [place], [place] [address] [phone] 12/02/2019 Appointment Cardiac Electrophysiology Outpt-Simi, Pacemaker/Icd 12/08/2019 Office Visit Ophthalmology Yariel iTneo MD [address] [place], [place] [address]d. [place], [place] [address] 02/08/2020 Office Visit Cardiology Robert Adkins MD [address] [place], [place] [address] Health Maintenance Due Date [...] of this encounter Implants Implanted Type Area Wan Support Specialist Device Shelf Model / Identifier Expiration Serial / Date Lot Prolene Mesh MESH Right: Ethicon 12/20/2020 PMSK / Implanted: Qty: 1 on 07/04/2016 by Alfonso Martinez MD at [facility] [employer] PMSK / [id number] Pacemaker PACEMAKER Stent-06/24/2016 Implanted: 06/24/2016 (Quantity not on file) documented as of this encounter Results Not on filedocumented in this encounter Visit Diagnoses Diagnosis Vitamin B12 deficiency Other B-complex deficiencies documented in this encounter Insurance Payer Benefit Plan / Subscriber ID Effective Phone Address T [facility] [employer] [facility] Group Dates [facility] [id number] 2017-Lux [phone] HMO HEALTH [employer] HEALTH CHOICE [phone] [place] [address] documented as of this encounter Advance Directives Name Relationship Healthcare Agent Communication Relationship Pandagutierrez Nelson Spouse Primary healthcare agent Elisabeth Soliz Sibling First alternate healthcare [phone] agent (Mobile)
--- OUTSIDE RECORDS SUMMARY | 2019-11-07 22:09 | XMS REPORT | Summary of Care ---
:1970 Author Organization [facility] Address [address] [place] [address] Care Team Providers Name Role Phone Elmer Andrade MD Primary Care Provider NAVJOT Espinoza Unavailable Unavailable MD Rocco Unavailable Mary Quezada MD Unavailable Genna Anand VIBRATION TECHNICIAN Unavailable Unavailable MD Casimiro Unavailable Ricardo Rodriguez DO Necktie Centralizing Machine Operator Reason for Visit Reason Comments PT/INR Encounter Details Date Type Department Care Team Description 08/13/2019 Nurse Visit [facility] Treva Andrade MD [address] [place] [address] [address] Anticoagulation management encounter; Aofl-Drqzvohjjuu-MN Nurse, Vtc Anticoag Other pulmonary embolism without acute c or pulmonale, unspecified chronicity [facility] [address] [place] [address] Allergies Active Allergy Reactions Severity [...] as of this encounter (statuses as of 08/13/2019) Medications Medication Sig Dispensed Refills Start Date [...] for Nausea Hyperglycemia and Vomiting (N/V). Insulin [place]ay, Disposable, Use as directed, 1x 100 Each [...] 0 07/21/2019 Active 2 (two) times daily. eplerenone 25 mg Take 2 tablets by mouth 60 tablet 3 0 Active tabletIndications: Chronic daily. heart failure with preserved ejection fraction metOLazone 2.5 mg Take 1 tablet by mouth 15 tablet 2 0 Active tabletIndications: Vitamin every Friday, Friday B12 deficiency and Friday. documented as of this encounter (statuses as of 08/13/2019) Active Problems Problem Noted Date SOB (shortness [...] Added automatically from request for lillian renny [id number] Syncope 04/01/2017 Chest pain, rule out acute [...] Chest pain 06/12/2016 Coronary artery disease involving [place] coronary briseyda ry of [place] heart 06/12/2016 with angina pectoris [place] (myocardial infarction) 06/12/2016 Type 2 diabetes mellitus without complication 06/12/20 16 Essential hypertension 06/12/2016 History of alcohol abuse Overview: Sober for 16 years documented as of this encounter (statuses as of 08/13/2019) Resolved Problems Problem Noted Date Resolved Date Chest pain radiating to arm 08/08/2016 08/19/2016 Abdominal pain 07/19/2016 08/19/2016 History of epidural anesthesia 07/04/2016 7 Morbid obesity with body mass index of 50 or higher 06/26/19 17 08/19/2016 Obesity (BMI 30-39.9) 06/12/2016 08/19/2016 documented as of this encounter (statuses as of 08/13/2019) Immunizations Name Administration Dates Next Due Td [...] Patient Instructions Patient InstructionsDeepika Bagley RN - 08/13/2019 8:00 AM CSTDo not take any warfarin today only ( Friday, August 13, 2019 ) and then tomorrow start new warfarin dose. Eat a serving of high Vit K food today then continue Vit K foods 2-3 ti a week consistently. Change in Warfarin (Coumadin) dose: decrease dose to 50mg per week (using 10 mg tablets - white) Friday: 5mg ( 1/2 tablet Friday:10mg Friday:5mg ( 1/2 tablet ) Friday: 10 mg :5mg ( 1/2 tablet ) Friday:10mg Friday: 5mg ( 1/2 tablet ) Repeat above schedule until you return for [...] your safety, please remember to call the Antico Clinic if any of your current medications change dose, if you get new medications, or if medications are stopped. There may be interactions with medications that will increase your risk of bleeding or forming blood clots. When you call the clinic([phone]) we will advise you if your INR should be checked sooner than your next scheduled appointment or you may need to adjust your Vitamin K food intake. [facility] Contact Information [facility]-- Deepika [phone] [email or web address] [phone] [email or web address] [phone] [email or web address] To schedule appts - [phone] Emergency Dial 911 or go to the nearest Emergency Room FILER documented in this encounter Progress Notes Deepika aBgley RN - 08/13/2019 8:00 AM CST ANTI-COAGULATION CLINIC NOTE Anti-Coagulation diagnosis: ICD-10-CM ICD-9-CM 1. Anticoagulation management encounter Z51.81 V58.83 Z79.01 V58.61 2. Other pulmonary embolism without acute cor pulmonale, unspecified chronicity I26.99 415.19 Warfarin (Coumadin) dose: 55mg per week (using 10 mg tablets - white) Friday: 10 mg Friday:10mg Friday:5mg ( 1/2 tablet ) Friday: 10 mg :5mg ( 1/2 tablet ) Friday:10mg Friday: 5mg ( 1/2 tablet ) Cognitive assessment: alert and oriented times 3 Finger stick performed using aseptic technique, sticking left hand, middle finger, and HighScore HouseguCoupstak XS machine [id number] was used. Blood sample was obtained; Band aid was applied. Strip used today lot number: [id number] POCT PT/INR Date Value Ref Range Status 08/13/2019 4.2 (A) 0.8 - 1.4 INR Final POCT PT/SEC Date Value Ref Range Status 08/13/2019 50.0 SEC Final Anti-Coagulation diagnosis: ICD-10-CM ICD-9-CM 1. Anticoagulation management encounter Z51.81 V58.83 Z79.01 V58.61 2. Other pulmonary embolism without acute cor pulmonale, unspecified chronicity I26.99 415.19 Duration of Anticoagulation Therapy As of 08/13/2019 TTR: 68.3 % (11 mo) Target end date: Indefinite Target Range As of 08/13/2019 INR goal: 2.0-3.0 TTR: 68.3 % (11 mo) PT/INR within therapeutic range Pt's INR was 2.7 on 07/16 and dose was not adjusted at that time. Pt's INR today is 4.2. Pt stated hedid not drink any alcohol, cranberry or grapefuit juice. Pt stated he did not start or stop any medications and has taken coumadin/warfarin as directed. There is no identifiable contributing factor for today's supratherapeutic level. Will hold warfarin today and then decrease warfarin ~9% from 55 mg to 50 mg weekly dose. Pt will eat serving of high Vit K food today then continue Vit K foods 2-3 times a week consistently. Will recheck INR in 1 week. Pt advised of the increased risk of [...] with the plan of care. Change in Warfarin dose: 50mg per week (using 10 mg tablets - white) Friday: 5mg ( 1/2 tablet Friday:10mg Friday:5mg ( 1/2 tablet ) Friday: 10 mg :5mg ( 1/2 tablet ) Friday:10mg Friday: 5mg ( 1/2 tablet ) Patient notified: yes Patient verbalized understanding and agreement with the plan of care. Patient was provided with written and verbal educational information on August 13, 2019 regarding the interaction of warfarin with [...] Treatment Date Type Specialty Care Team Description 08/17/2019 Office Visit Internal Medicine Lilibeth Andrade MD [address] [place] [address] [phone] 08/19/2019 Office Visit Psychiatry Osmar Meza MD [address] [place] [address] [phone] Mendez Martinez MD [address] [place] [address]. [place] [address] 08/23/2019 Nurse Visit Anti-coagulation Clinic Nurse, Vtc Antico ag 08/24/2019 Office Visit Oncology Lincoln Griffiths MD [facility]5 [place], [place] [address] [phone] 08/27/2019 Office Visit Gastroenterology Jorge Luis Mccarty MD [address] [place] [address] [phone] 09/09/2019 Office Visit Internal Medicine Lilibeth Andrade MD [address] [place] [address] [phone] 10/12/2019 Office Visit Internal Medicine Lilibeth Andrade MD [address] [place] [address] [address] [place], [place] [address] [phone] 10/19/2019 Office Visit Endocrinology Diabetes & Jones, Tre rodriguez MD Metabolism [address] [place] [address] [phone] 10/27/2019 Office Visit Pulmonary Disease Max Aguiar MD 146 [facility] 106 [place], [place] [address] [phone] 11/02/2019 Office Visit Internal Medicine Lilibeth Andrade MD 146 [facility] 103 [place], [place] [address] [phone] 12/02/2019 Appointment Cardiac Electrophysiology Outpt-Simi, Pacemaker/Icd 12/08/2019 Office Visit Ophthalmology Yariel Tineo MD [address] [place], [place] [address]. [place], [place] [address] 02/08/2020 Office Visit Cardiology Robert Adkins MD [address] [place], [place] [address] Health Maintenance Due Date [...] of this encounter Implants Implanted Type Area Sales And Leasing Consultant Device Shelf Model / Identifier Expiration Serial / Date Lot Prolene Mesh MESH Right: Ethicon 12/20/2020 PMSK / Implanted: Qty: 1 on 07/04/2016 by Alfonso Martinez MD at [facility] [employer]dom[employer] PMSK / [id number] Pacemaker PACEMAKER Stent-06/24/2016 Implanted: 06/24/2016 (Quantity not on file) documented as of this encounter Procedures Procedure Name Priority Date/Time Associated Diagnosis Comme nts POCT Routine 08/13/2019 Other pulmonary Results for this PT/INR(COAGUCHEK) embolism without acute procedure are in the cor pulmonale, results secti on. unspecified chronicity documented in this encounter Results POCT PT/INR(COAGUCHEK) (08/13/2019) Pathologist Sig nature POCT PT/INR 4.2 (A) 0.8 - 1.4 INR POCT PT/SEC 50.0 SEC Specimen Blood - CAPILLARY documented in this encounter Visit Diagnoses Diagnosis Anticoagulation management encounter Encounter for therapeutic drug monitorin g Other pulmonary embolism without acute c or pulmonale, unspecified chronicity documented in this encounter Insurance Payer Benefit Plan / Subscriber ID Effective Phone Address T ype Group Dates [facility] [id number] 2017-Lux [phone] [address] [employer] [facility] [employer] nt [phone] [place] [address] documented as of this encounter Advance Directives Name Relationship Healthcare Agent Communication Relationship Keaton Nelson Spouse Primary healthcare agent Elisabeth Soliz Sibling First [facility] healthcare agent (Mobile)
--- OUTSIDE RECORDS SUMMARY | 2019-11-07 22:10 | XMS REPORT | Summary of Care ---
:1970 Author Organization [facility] Address [address] [place] [address] Care Team Providers Name Role Phone Elmer Andrade MD Primary Care Provider NAVJOT Espinoza Unavailable Unavailable MD Rocco Unavailable Mary Quezada MD Unavailable Genna AnandP Unavailable Unavailable MD Casimiro Unavailable Ricardo Rodriguez DO Accounting Supervisor Reason for Visit Reason Comments LAB Encounter Details Date Type Department Care Team Description 08/17/2019 Lower School Music Teacher Visit [facility] Robert Adkins MD [address] [facility] [address] [place] [address] Chronic heart Professional Office 2, Adc Lab failure with Building Phlebotomy preserve d ejection Lab fraction Professional Office Building [address] [place] [address] Allergies Active Allergy Reactions Severity [...] as of this encounter (statuses as of 08/17/2019) Medications Medication Sig Dispensed Refills Start Date [...] for Nausea Hyperglycemia and Vomiting (N/V). Insulin [place], Disposable, Use as directed, 1x 100 Each [...] as of this encounter (statuses as of 08/17/2019) Active Problems Problem Noted Date SOB (shortness [...] Added automatically from request for lillian lawson [id number] Syncope 04/01/2017 Chest pain, rule out acute [...] Chest pain 06/12/2016 Coronary artery disease involving saxman coronary briseyda ry of saxman heart 06/12/2016 with angina pectoris [place] (myocardial infarction) 06/12/2016 Type 2 diabetes mellitus without complication 06/12/20 16 Essential hypertension 06/12/2016 History of alcohol abuse Overview: Sober for 16 years documented as of this encounter (statuses as of 08/17/2019) Resolved Problems Problem Noted Date Resolved Date Chest pain radiating to arm 08/08/2016 08/19/2016 Abdominal pain 07/19/2016 08/19/2016 History of epidural anesthesia 07/04/2016 7 Morbid obesity with body mass index of 50 or higher 06/26/19 17 08/19/2016 Obesity (BMI 30-39.9) 06/12/2016 08/19/2016 documented as of this encounter (statuses as of 08/17/2019) Immunizations Name Administration Dates Next Due Td [...] Visit Internal Medicine Lilibeth Andrade MD [address] [address] [phone] 08/19/2019 Office Visit Psychiatry Osmar Meza MD [address] [place] [address] [phone] Mendez Martinez MD [address] [place] [address]. [place] [phone] 08/23/2019 Nurse Visit Anti-coagulation Clinic Nurse, Vtc Antico ag 08/24/2019 Office Visit Oncology Lincoln Griffiths MD [address] [place], [place] [address] [phone] 08/27/2019 Office Visit Gastroenterology Jorge Luis Mccarty MD [address] [place] [address] [phone] 09/09/2019 Office Visit Internal Medicine Lilibeth Andrade MD [address] [address] [phone] 10/12/2019 Office Visit Internal Medicine Lilibeth Andrade MD [address] [place] [address] [phone] 10/19/2019 Office Visit Endocrinology Diabetes & Jones, Tre rodriguez MD Metabolism [address] [place] [address] [phone] 10/27/2019 Office Visit Pulmonary Disease Max Aguiar MD 146 [facility] 106 [place], [place] [address] [phone] 11/02/2019 Office Visit Internal Medicine Lilibeth Andrade MD 146 [facility] 103 [place], [place] [address] [phone] 12/02/2019 Appointment Cardiac Electrophysiology Outpt-Simi, Pacemaker/Icd 12/08/2019 Office Visit Ophthalmology Yariel Tineo MD [address] [place], [place] [address]. [place], [place] [address] 02/08/2020 Office Visit Cardiology Robert Adkins MD [address] [place], [place] [address] Health Maintenance Due Date [...] of this encounter Implants Implanted Type Area Gaggerman Device Shelf Model / Identifier Expiration Serial / Date Lot Prolene Mesh MESH Right: Ethicon 12/20/2020 PMSK / Implanted: Qty: 1 on 07/04/2016 by Alfonso Martinez MD at [facility] Abdom[employer] PMSK / [id number] Pacemaker PACEMAKER Stent-06/24/2016 Implanted: 06/24/2016 (Quantity not on file) documented as of this encounter Results Not on filedocumented in this encounter Visit Diagnoses Diagnosis Chronic heart failure with preserved eje ction fraction documented in this encounter Insurance Payer Benefit Plan / Subscriber ID Effective Phone Address T ype Group Dates [facility] [id number] 2017-Lux [phone] [address] [employer] [facility] [employer] [phone] [place] [address] (Home) [place] [address] documented as of this encounter Advance Directives Name Relationship Healthcare Agent Communication Relationship Keaton Nelson Spouse Primary healthcare agent Elisabeth Sloiz Sibling First alternate healthcare [phone] agent (Mobile)
--- OUTSIDE RECORDS SUMMARY | 2019-11-07 22:10 | XMS REPORT | Summary of Care ---
:1970 Author Organization [facility] Address [address] [place] [address] Care Team Providers Name Role Phone Elmer Andrade MD Primary Care Provider NAVJOT Espinoza Unavailable Unavailable MD Rocco Unavailable Mary Quezada MD Unavailable Genna AnandP Unavailable Unavailable MD Casimiro Unavailable Ricardo Rodriguez DO Land Appraiser Reason for Visit Reason Comments Notification Encounter Details Date Type Department Care Team Description 08/17/[address] [facility] Pediatric and Bharti Andrade, Notification Adult Primary Care- [place] [address] [place] [address], Suite [facility] 10 3 [address] [place] [address] [place] [address] [phone] Allergies Active Allergy Reactions Severity Noted Date [...] for Nausea Hyperglycemia and Vomiting (N/V). Insulin [place]innacle, Disposable, Use as directed, 1x 100 Each [...] Added automatically from request for lillian renny [id number] Syncope 04/01/2017 Chest pain, rule out acute [...] Chest pain 06/12/2016 Coronary artery disease involving [place] coronary briseyda ry of [place] heart 06/12/2016 with angina pectoris [place] (myocardial infarction) 06/12/2016 Type 2 diabetes mellitus [...] Treatment Date Type Specialty Care Team Description 08/19/2019 Office Visit Psychiatry Osmar Meza MD [address] [place] [id number] Mendez Martinez MD [address] [place] [address]. [place] [phone] 08/23/2019 Nurse Visit Anti-coagulation Clinic Nurse, Idc Antico ag 08/24/2019 Office Visit Oncology Lincoln Griffiths MD [facility]5 [place], [place] [address] [phone] 08/27/2019 Office Visit Gastroenterology Jorge Luis Mccarty MD [address] [place] [address] [phone] 09/09/2019 Office Visit Internal Medicine Lilibeth Andrade MD [address] [address] [phone] 10/12/2019 Office Visit Internal Medicine Lilibeth Andrade MD [address] [address] [phone] 10/19/2019 Office Visit Endocrinology Diabetes & Tre Jones MD [address] [address] [phone] 10/27/2019 Office Visit Pulmonary Disease Max Aguiar MD 146 [facility] 106 [place] [address] 11/02/2019 Office Visit Internal Medicine Lilibeth Andrade MD 146 [facility] 103 [place] [address] [phone] 12/02/2019 Appointment Cardiac Electrophysiology Outpt-Simi, Pacemaker/Icd 12/08/2019 Office Visit Ophthalmology Yariel Tineo MD [facility] [address] [place], [place] [address] 02/08/2020 Office Visit Cardiology Robert Adkins MD [address] [place], [place] [address] Health Maintenance Due Date [...] of this encounter Implants Implanted Type Area Bisque Brusher Device Shelf Model / Identifier Expiration Serial / Date Lot Prolene Mesh MESH Right: Ethicon 12/20/2020 PMSK / Implanted: Qty: 1 on 07/04/2016 by Alfonso Martinez MD at [facility] Abdomen [employer]orporated PMSK / [id number] Pacemaker PACEMAKER Stent-06/24/2016 Implanted: 06/24/2016 (Quantity not on file) documented as of this encounter Results Not on filedocumented in this encounter Insurance Payer Benefit Plan / Subscriber ID Effective Phone Address T [facility] Group Dates [facility] [id number] 2017-Lux [phone] [employer] [facility] [employer] [facility] [employer] [phone] [place] [address] documented as of this encounter Advance Directives Name Relationship Healthcare Agent Communication Relationship Keaton Nelson Spouse Primary healthcare agent Elisabeth Soliz Sibling First alternate healthcare agent (Mobile)
--- OUTSIDE RECORDS SUMMARY | 2019-11-07 22:13 | XMS REPORT | Summary of Care ---
:1970 Author Organization [facility] - [facility] Address [address] [place] [id number] Care Team Providers Name Role Phone Elmer Andrade MD Primary Care Provider NAVJTO Espinoza Unavailable Unavailable MD Rocco Unavailable Mary Quezada MD Unavailable Genna Anand CLOTH PIECER Unavailable Unavailable MD Casimiro Unavailable Ricardo Rodriguez DO Mat Worker Reason for Referral (Routine) Status Reason Specialty Diagnoses / Referred By Referred To Procedures Contact Contact New Request UNKNOWN PHYSICIAN Diagnoses Hypokalemia Socorro Cabezas SPECIALTY Procedures Discharge Follow-Up: Specialty Service UNKNOWN PHYSICIAN SPECIALTY; 3-5 Days FILIBERTO Chun [address] [facility] [place] [address] Reason for Visit Reason Comments Dizziness Other Low Potassium Auth/Cert Status Reason Specialty Diagnoses / Referred By Referred To Procedures Contact Contact Emergency Medicine Adc Em ergency Dept [address] [facility] [place] [address] Fax: Encounter Details Date Type Department Care Team Description 08/17/2019 - Emergency ADC Medicine Surgery Sheyla Reeves, PAC [address] [facility] [place] [address] Acute hypokalemia 08/19/2019 Unit Wallace Lea MD [address] [place] [id number] [place] [address] [place] [address] Allergies Active Allergy Reactions Severity Noted Date [...] as of this encounter (statuses as of 08/19/2019) Medications Medication Sig Dispensed Refills Start Date [...] mouth at bedtime. furosemide (LASIX) 80 mg Take 80 mg by 0 Active tablet mouth every morning and evening. warfarin [...] Iron times daily with deficiency anemia due to meals. chronic blood loss Cholecalciferol, Vitamin Take by [...] tabletIndications: mouth daily with Type 2 diabetes mellitus breakfast. with cardiac complication dulaglutide (TRULICITY) inject 0.75 mg 4 Syringe 4 02/24/2019 Active 0.75 mg/0.5 mL under the skin PnIjIndications: Type 2 weekly. diabetes mellitus with cardiac complication Ranolazine 1,000 mg Take 1 tablet by [...] (five) minutes as needed for Chest pain. hydrocortisone 2.5 % Apply to affected 454 g 11 06/01/2019 Active creamIndications: area(s) 2 (two) Seborrheic dermatitis times daily. If Insurance does not cover the jar then give tubes of cream. PROMETHAZINE 25 mg TAKE 1 TABLET BY 30 tablet 11 06/06/2019 Active tabletIndications: MOUTH EVERY SIX Non-intractable vomiting HOURS NEEDED with nausea, unspecified FOR NAUSEA OR vomiting type VOMITING testosterone (ANDROGEL) Apply 2 Pumps to 75 g 3 9 Active 20.25 mg/1.25 gram (1.62 area(s) daily. %) gel pumpIndications: Low testosterone cyanocobalamin (VITAMIN 1 mL by 12 mL 3 06/18/2019 Active B-12) 1,000 mcg/mL Intramuscular injectionIndications: route every 2 Vitamin B12 deficiency (two) weeks. clindamycin 1 % Apply to affected 60 mL 6 06/11/2019 Active solutionIndications: area(s) 2 (two) Folliculitis times daily. urea 40 % Apply to area(s) 198 g 6 06/11/2019 A ctive creamIndications: daily. Xerosis cutis ondansetron (ZOFRAN ODT) Take 1 tablet by 14 tablet 0 06/23/19 20 Active 4 mg disintegrating mouth every 8 tabletIndications: (eight) hours as Hyperglycemia needed for Nausea and Vomiting (N/V). Insulin [place], Use as directed, 100 Each 1 06/25/2019 Active Disposable, (RELION PEN 1x daily, DX:E11.9 NEEDLES) 32 gauge x 5/32" Ndle Insulin Glargine (LANTUS inject 12-14 Units 3 mL 0 2019 Active SOLOSTAR U-100 INSULIN) under the skin 100 unit/mL (3 mL) daily. injection ARIPiprazole 15 mg Take 1 tablet by 30 tablet 1 07/15/2019 Active tabletIndications: mouth daily. Generalized anxiety disorder, Panic disorder without agoraphobia, Severe episode of recurrent major depressive disorder, without psychotic features clonazePAM 1 mg Take 1 pill PO in 120 tablet 1 07/15/2019 Active tabletIndications: the AM, 1 PO in Generalized anxiety the afternoon, 1 disorder, Panic disorder pill PO in the without agoraphobia evening. May take additional 1 pill as needed acute anxiety. desvenlafaxine succinate Take 2 tablets by 60 tablet 1 020 Active (PRISTIQ) 100 mg 24 hr mouth daily. tabletIndications: Severe episode of recurrent major depressive disorder, without psychotic features, Generalized anxiety disorder pantoprazole 40 mg EC Take 1 tablet by 180 tablet 0 07/21/2019 Active tablet mouth 2 (two) times daily. metOLazone 2.5 mg Take 1 tablet by 15 tablet 2 08/13/2019 Active tabletIndications: mouth every Vitamin B12 deficiency Friday, Friday and Friday. eplerenone 50 mg Take 1 tablet by 60 tablet 0 08/19/201909/17 Active tabletIndications: mouth 2 (two) Hypokalemia times daily for 30 days. KCL 20 mEq Take 2 tablets by 180 tablet 0 08/19/201909/17 Active tabletIndications: mouth 3 (three) Hypokalemia times daily for 30 days. KCL 20 mEq Take 3 tablets by 180 tablet 2 03/03/201908/19 Discontinued tabletIndications: Acute mouth 3 (three) on chronic diastolic times daily. congestive heart failure, Hypopotassemia enoxaparin 100 mg/mL inject 1 mL under 5 Syringe 0 05/26/201908/17 Discontinued injectionIndications: the skin daily. 020 PAF (paroxysmal atrial Patient needs to fibrillation) stop warfarin and start taking his Lovenox 5 days before his cardiac procedure enoxaparin 100 mg/mL inject 1.3 mL 3 Syringe 0 06/03/201907/25 5 Discontinued injectionIndications: under the skin /20 20 Chronic pulmonary daily. embolism without acute cor pulmonale, unspecified pulmonary embolism type eplerenone 25 mg Take 2 tablets by 60 tablet 3 08/10/201907/25 7 Discontinued tabletIndications: mouth daily. Chronic heart failure with preserved ejection fraction documented as of this encounter (statuses as of 08/19/2019) Active Problems Problem Noted Date Acute hypokalemia 08/17/2019 SOB (shortness of breath) 06/04/2019 Pacemaker 05/03/2019 [...] Added automatically from request for lillian lawson [id number] Syncope 04/01/2017 Chest pain, rule out acute [...] Chest pain 06/12/2016 Coronary artery disease involving white mountain coronary briseyda ry of white mountain heart 06/12/2016 with angina pectoris MO (myocardial infarction) 06/12/2016 Type 2 diabetes mellitus without complication 06/12/20 16 Essential hypertension 06/12/2016 History of alcohol abuse Overview: Sober for 16 years documented as of this encounter (statuses as of 08/19/2019) Resolved Problems Problem Noted Date Resolved Date Chest pain radiating to arm 08/08/2016 08/19/2016 Abdominal pain 07/19/2016 08/19/2016 History of epidural anesthesia 07/04/2016 7 Morbid obesity with body mass index of 50 or higher 06/26/19 17 08/19/2016 Obesity (BMI 30-39.9) 06/12/2016 08/19/2016 documented as of this encounter (statuses as of 08/19/2019) Immunizations Name Administration Dates Next Due Td [...] Sign Reading Time Taken Comments Blood Pressure 140/63 08/19/2019 10:52 AM LIVESTOCK FARMWORKER Pulse 70 08/19/2019 10:52 AM LIVESTOCK FARMWORKER Temperature 36.6 C (97.8 F) 08/19/2019 10:52 AM LIVESTOCK FARMWORKER Respiratory Rate 20 08/19/2019 10:52 AM LIVESTOCK FARMWORKER Oxygen Saturation 92% 08/19/2019 10:52 AM LIVESTOCK FARMWORKER Inhaled Oxygen Concentration - - Weight 131 kg (288 lb 12.8 oz) 08/19/2019 7:00 AM LIVESTOCK FARMWORKER Height 177.8 cm (5' 10") 08/17/2019 5:51 PM LIVESTOCK FARMWORKER Body Mass Index 41.44 08/17/2019 5:51 PM LIVESTOCK FARMWORKER documented in this encounter Discharge Instructions InstructionsAntoni Maynard RN - 08/19/2019Take Potassium 40 mEq 3x per day. Take Metolazole on Friday and Friday. Speak with your general warehouse associate for further instructions. Follow up with Dr Rodriguez within 1-2 weeks regarding Hyperaldosterone. Follow up with Dr Adkins 3-5 days for BMP. Increase Eplernone (Inspra) to 50 mg 2x a day. Continue current Lasix dose. documented in this encounter Progress Notes Al Valiente MD - 08/19/2019 7:01 AM CST [facility] Cardiology progress note Date of Service: 08/19/2019 John Paul Nelson is a 49 years old male hospitalized for hypokalemia. No chest pain or SOB. K improved to 3.5. No arrhythmias. PHYSICAL EXAM Vitals: 08/18/19 1600 08/18/19 1930 08/18/19 2327 08/19/19 0314 BP: 123/83 120/69 111/69 124/67 Pulse: 72 74 72 71 Resp: Temp: 36.8 C (98.3 F) 36.6 C (97.8 F) 36.2 C (97.2 F) 36.2 C (97.2 F) TempSrc: Temporal Artery Tympanic Tympanic Tympanic SpO2: 95% 95% 95% 95% Weight: Height: General: alert and oriented x 3 (person, place and date/time); no apparent distress, obese HEENT: normocephalic atraumatic Neck: supple, no lymphadenopathy, no bruits, no JVD Lungs: clear to auscultation bilaterally Cardio: S1, S2, normal rate, regular; no murmurs, rubs or gallops Abdomen: non-distended : not examined Rectal: not examined Extremities: no clubbing, cyanosis, or edema Skin: no rashes Neuro: no focal deficits Medications: I have reviewed the patient's medications; see Medication Reconciliation. Labs: I have reviewed the patient's labs. 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 K replacement per primary team. K has improved. Continue eplernone. H/o PE--Continue warfarin. INR 2-3. Chronic HFpEF--no clear evidence of volume overload. Once K is stable, will resume diuresis. Low salt diet. Fluid restriction. CAD--Stable. No angina. Continue home medications--plavix, metoprolol, and lipitor. Pacemaker GREGORIO--On C-PAP Al Valiente MD, FACC, FACP, VICTORIA Deep Fryer Assembler, Division of Cardiology [facility] hSocorro linda FNP - 08/18/2019 3:27 PM CST [facility] Hospitalist Progress Note SUBJECTIVE: Patient up to chair. Feeling fine. CURRENT MEDICATIONS - reviewed. Current Facility-Administered Medications Medication Dose Route Frequency Last Rate Last Dose [START ON 08/19/2019] desvenlafaxine succinate (PRISTIQ) 24 hr tablet 200 mg 200 mg Oral [id number] mg at 08/18/19 1117 eplerenone (INSPRA) tablet 50 mg 50 mg Oral BID KCL (KLOR-CON M20) tablet 40 mEq 40 mEq Oral TID warfarin (COUMADIN) tablet 10 mg 10 mg Oral DAILY AT 1700 acetaminophen (TYLENOL) tablet 650 mg 650 mg Oral Q6HPRN allopurinoL (ZYLOPRIM) tablet 300 mg 300 mg Oral DAILY 300 mg at 08/18/19 0814 ARIPiprazole (ABILIFY) tablet 15 mg 15 mg Oral DAILY 15 mg at 08/18/19 0814 atorvastatin (LIPITOR) tablet 40 mg 40 mg Oral QHS 40 mg at 08/17/19 2108 buprenorphine-naloxone (SUBOXONE) 8-2 mg sublingual film 8 mg 8 mg Sublingual B25JUDO 8 mg at08/18/19 0813 clonazePAM (KLONOPIN) tablet 1 mg 1 mg Oral TID 1 mg at 08/18/19 1340 clopidogreL (PLAVIX) tablet 75 mg 75 mg Oral DAILY 75 mg at 08/18/19 0814 ferrous sulfate tablet 325 mg 325 mg Oral TID MEALS 325 mg at 08/18/19 1340 insulin glargine (LANTUS U-100) injection 14 Units 14 Units Subcutaneous DAILY 14 Units at 08/18/19 0815 magnesium oxide (MAG-OX 400) tablet 400 mg 400 mg Oral BID 400 mg at 08/18/19 0813 methocarbamol (ROBAXIN) tablet 750 mg 750 mg Oral BID 750 mg at 08/18/19 0813 pantoprazole (PROTONIX) EC tablet 40 mg 40 mg Oral BID 40 mg at 08/18/19 0814 ranolazine (RANEXA) 12 hr tablet 1,000 mg 1,000 mg Oral BID 1,000 mg at 08/18/19 0814 Sliding Scale Insulin - Aspart (NOVOLOG) + Fsbg Testing Subcutaneous TID MEALS+HS Stopped at08/18/19 0800 PHYSICAL EXAM: BP 119/72 | Pulse 77 | Temp 36.9 C (98.4 F) (Temporal Artery) | Resp 18 | Ht 1.778 m (5' 10") | Wt 129.3 kg (285 lb) | SpO2 95% | BMI 40.89 kg/m General: NAD HEENT: Anicteric sclerae, NCAT Lungs: CTAB Cardio: RRR, strong symmetric pulses Abdomen: Soft, NTND Genitourinary: No lesions Musculoskeletal: Normal muscle mass, no synovitis Skin: No rash or lesions, normal turgot Neuro: AAOx3, no focal deficits Psych: Normal affect LABS/IMAGING - reviewed, pertinent results as below: CBC BMP PT/INR WHITE BLOOD CELL COUNT-Q (Thousand/uL) Date Value 12/04/2016 10.9 (H) WBC (10*3/L) Date Value 08/18/2019 9.22 NA (mmol/L) Date Value 08/18/2019 135 SODIUM-Q (mmol/L) Date Value 11/24/2017 135 No results found for: PT RED BLOOD CELL COUNT-Q (Million/uL) Date Value 12/04/2016 5.24 RBC (10*6/L) Date Value 08/18/2019 5.11 K (mmol/L) Date Value 08/18/2019 3.7 POTASSIUM-Q (mmol/L) Date Value 11/24/2017 4.1 INR (no units) Date Value 08/18/2019 1.9 PLT (10*3/L) Date Value 08/18/2019 314 CALCIUM (mg/dL) Date Value 08/18/2019 9.7 CALCIUM-Q (mg/dL) Date Value 11/24/2017 9.0 HGB (g/dL) Date Value 08/18/2019 12.8 HEMOGLOBIN-Q (g/dL) Date Value 12/04/2016 13.0 (L) CL (mmol/L) Date Value 08/18/2019 94 (L) CHLORIDE-Q (mmol/L) Date Value 11/24/2017 99 aPTT HCT (%) Date Value 08/18/2019 39.8 HEMATOCRIT-Q (%) Date Value 12/04/2016 39.0 BUN (mg/dL) Date Value 08/18/2019 18 UREA NITROGEN (BUN)-Q (mg/dL) Date Value 11/24/2017 12 APTT Patient (Seconds) Date Value 06/04/2019 42 (H) CREATININE (mg/dL) Date Value 08/18/2019 1.29 (H) CREATININE-Q (mg/dL) Date Value 11/24/2017 0.88 IMAGING- No results found for this visit on 08/17/19. ASSESSMENT/PLAN John Paul Nelson is a 49 year old male with PMH as listed above, admitted to the hospital with: Acute severe Hypokalemia improving likely secondary to hyperaldosteronism and use of metolazone and lasix Replace IV/ PO potassium and trend BMP Consult nephrolgy Dr Arreola defer to note Increased to Inspra 50 BID Hold lasix and metolazone for now Aldosterone level 08/2017 84.7 Acute on chronic diastolic CHF stable Hold lasix/ metolazone for now til K is replaced; Lasix 80 mg BID Consult cardiology Dr Valiente Strict urine output Fluid restriction Weigh patient in the a.m. and p.m. Chronic chest pain continue Ranexa CAD as/stent Plavix 75 mg daily, atorvastatin 40 mg daily History of VTE on Coumadin 5 mg today and tomorrow patient will take 10 mg Daily INR to keep 2-3 DM type II A1c 8.6 Continue Lantus 14 units every morning SS I, Accu-Cheks before meals and at bedtime GERD continue Protonix 40 mg daily Gout continue Allopurinoll 200 mg Chronic low back pain follows C/w Suboxone, robaxin abilify and klonopin and desvenlafaxine Prophylaxis: DVT- on coumadin Stress Ulcer: pantoprazole Code Status: addressed: full code Disposition: home [place] RN LVN was viewed during this stay FILIBERTO Maldonado STOCK FARMWORKER Associated attestation - Wallace Lea MD - 08/18/2019 4:49 PM CSTI personally evaluated and examined the patient on 08/18/2019 and agree with the note as detailed by the nurse practitioner, Socorro Cabezas. I actively participated in the decision-making process. Please see the SOCIAL ECONOMIST's note for additional details. Wallace Lea M.D. 08/18/2019 4:49 PM Karena Be LB - 08/18/2019 10:20 AM CSTSubjective Patient ID: John Paul Nelson is a 49 year old male. Care Management Social Functional Assessment Patient Name: John Paul Nelson Age: [age] year old Sex: male Patient's Previous Admission Date at [facility]: 10/06/2018 Current diagnosis and co-morbidities: acute hypokalemia;chf Readmission Questions: Was patient discharged from any acute care hospital within the last 30 days: No Social Functional Assessment: Primary language spoken/preferred: Somali Mental Status: Alert & Oriented to Person,Place & Time Information given by: Self Patient's support system: Spouse;Other Name and number of support system: Keaton Nelson, Primary Research Electrician: Self;Spouse MPOA: No Living Arrangement: Home Address of living arrangement : [address] [place] [id number] Persons living in home: Self;Spouse Barriers to returning home: None Baseline functional status- ambulation: Independent Functional status-baseline personal care: Independent Baseline functional status- driving: Independent Baseline functional status- grocery shopping: Independent Functional status-baseline housekeeping: Independent Functional status-baseline meal prep: Independent Current functional status same as prior: Yes Do you have a PCP?: Yes Name of PCP: Dr. Andrade Home Health Care Agency: No Provider Services: No DME Company: No Equipment: None Hemodialysis: No Community resources utilized: None Funding Resources: Commercial Prescription coverage plan: Commercial Pharmacy where meds are filled: Other Other pharmacy: [facility] Anticipated services prior to disharge: Continue Medical Eval Expected mode of discharge transportation: Same as support system Additional Recommendations for DC: Medical clearance Additional info required for discharge planning: Pending medical evaluation Recommended discharge plan: Home SFA Complete: Social Functional Assessment complete: Yes Alcohol Use Screening (AUDIT-C) How often do you have a drink containing alcohol?: Never SCORE: 0 Did patient elect to have resources provided: No Role of Care Management explained. Any issues or concerns with obtaining/affording your medications at home: no. Are you or your support system able to continuous pickling line pickler helper medications at discharge: yes. Review of Systems Objective Physical Exam Assessment/Plan Home with LY Castro Chief School Finance Officer - Care Management [facility] [phone] [email or web address] Al Rhoades MD - 08/18/2019 8:23 AM CST [facility] Cardiology progress note Date of Service: 08/18/2019 John Paul Nelson is a 49 years old male hospitalized for hypokalemia. No chest pain or SOB. K still low at 2.7. No arrhythmias. PHYSICAL EXAM Vitals: 08/17/19 2019 08/17/19 2359 08/18/19 0352 08/18/19 0751 BP: 125/68 111/69 (!) 112/92 123/65 Pulse: 75 71 71 67 Resp: 20 18 18 20 Temp: 36.5 C (97.7 F) 36.4 C (97.5 F) 36.2 C (97.1 F) 36.2 C (97.2 F) TempSrc: Temporal Artery Temporal Artery Temporal Artery Temporal Artery SpO2: 95% 97% 92% 93% Weight: Height: General: alert and oriented x 3 (person, place and date/time); no apparent distress, obese HEENT: normocephalic atraumatic Neck: supple, no lymphadenopathy, no bruits, no JVD Lungs: clear to auscultation bilaterally Cardio: S1, S2, normal rate, regular; no murmurs, rubs or gallops Abdomen: non-distended : not examined Rectal: not examined Extremities: no clubbing, cyanosis, or edema Skin: no rashes Neuro: no focal deficits Medications: I have reviewed the patient's medications; see Medication Reconciliation. Labs: I have reviewed the patient's labs. 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 K replacement per primary team. Consider to restart amiloride. Continue eplernone. H/o PE--Continue warfarin. INR 2-3. Chronic HFpEF--no clear evidence of volume overload. Once K is stable, will resume diuresis. Low salt diet. Fluid restriction. CAD--Stable. No angina. Continue home medications--plavix, metoprolol, and lipitor. Pacemaker GREGORIO--On C-PAP Al Valiente MD, FACC, FACP, VICTORIA Deep Fryer Assembler, Division of Cardiology [facility] documented in this encounter Plan of Treatment Date Type Specialty Care Team Description 08/23/2019 Nurse Visit Anti-coagulation Clinic Nurse [facility] Giselle brooks 08/24/2019 Office Visit Oncology Lincoln Griffiths MD [address] [place], [place] [address] [phone] 08/27/2019 Nurse Visit Anti-coagulation Clinic Nurse [facility] Giselle ag 08/27/2019 Office Visit Gastroenterology Jorge Luis Mccarty MD [address] [place] [address] [phone] 09/09/2019 Office Visit Internal Medicine Lilibeth Andrade MD [address] [place], [place] [address], [place] [address] [phone] 10/12/2019 Office Visit Internal Medicine Lilibeth Andrade MD [address] [address] 10/19/2019 Office Visit Endocrinology Diabetes & Jones, Tre rodriguez MD Metabolism [address] [place] [address] [phone] 10/27/2019 Office Visit Pulmonary Disease Max Aguiar MD [address] [address] 11/02/2019 Office Visit Internal Medicine Lilibeth Andrade MD [address] [address] 12/02/2019 Appointment Cardiac Electrophysiology Outpt-Simi, Pacemaker/Icd 12/08/2019 Office Visit Ophthalmology Yariel Tineo MD [address] [place] [address]. [place], [place] [address] 02/08/2020 Office Visit Cardiology Robert Adkins MD [address] [place], [place] [address] Name Type Priority Associated Diagnoses Order S chedule PROTHROMBIN TIME / INR LAB Routine ONCE for 1 Occurrences starting 2019 until 08/18/2019 PROTHROMBIN TIME / INR LAB Routine EVERY MORNING AT 0500 for 1 Weeks startin g 08/18/2019 unti l 08/24/2019, 2 c ompleted Basic Metabolic Panel LAB Routine EVERY MORNING AT 0400 for (NA, K, CL, CO2, GLUCOSE, 1 Weeks starting BUN, CREATININE, CA) 020 until 08/24/2019, 2 c ompleted PROTHROMBIN TIME / INR LAB Routine EVERY 24 HOURS (START TIME ADJUSTABLE ) for 1 Days starting 0 08/19/2019 until 0 Health Maintenance Due Date Last Done Comments EYE EXAM 11/20/2019 11/19/2018, 11/13/2017 URINE MICROALBUMIN 02/07/2020 02/06/2019, 01/19/2018, 08/20/2016 HgA1C 02/15/2020 08/17/2019, 07/07/2019, 05/02/2019, Additional history exists PNEUMOCOCCAL 0-64 YEARS 02/24/2020 Postpone d from COMBINED SERIES (1 of 1 - 1974 (Refused) PPSV23) FOOT EXAM 02/25/2020 02/24/2019, 02/24/2019, 09/22/2018, Additional history exists INFLUENZA VACCINE (#1) 2020 Postponed from 02/21/2019 (Refu sed) LDL-C 05/02/2020 05/02/2019, 07/28/2018, 01/11/2018, Additional history exists Zoster Recombinant Vaccine 05/13/2020 Postp oned from (SHINGRIX) (1 of 2) 2019 ( Insurance / Financial) CREATININE (SERUM) 08/18/2020 08/18/2019, 08/18/2019, 08/18/2019, Additional history exists COLONOSCOPY 04/22/2027 04/22/2017 DTaP,Tdap,and Td Vaccines 06/26/2027 06/26/2017, 03/19/2015 Postponed from (1 - Tdap) 1980 (Not Indicated) documented as of this encounter Implants Implanted Type Area Low Heel Builder Device Shelf Model / Identifier Expiration Serial / Date Lot Prolene Mesh MESH Right: Ethicon 12/20/2020 PMSK / Implanted: Qty: 1 on 07/04/2016 by Alfonso Martinez MD at [facility] [employer]dom[employer] PMSK / [id number] Pacemaker PACEMAKER Stent-06/24/2016 Implanted: 06/24/2016 (Quantity not on file) documented as of this encounter Procedures Procedure Name Priority Date/Time Associated Diagnosis Comme nts POCT GLUCOSE Routine 08/19/2019 10:56 Results for this (AUTOMATED) AM LIVESTOCK FARMWORKER procedure are i n the results section. POCT GLUCOSE Routine 08/19/2019 7:12 Results for this (AUTOMATED) AM LIVESTOCK FARMWORKER procedure are i n the results section. N-TERMINAL PRO-BNP Routine 08/19/2019 3:21 Resul ts for this AM LIVESTOCK FARMWORKER procedure are i n the results section. PROTHROMBIN TIME / Routine 08/19/2019 3:21 Resul ts for this INR AM LIVESTOCK FARMWORKER procedure are i n the results section. BASIC METABOLIC PANEL Routine 08/19/2019 3:21 Re sults for this (NA, K, CL, CO2, AM LIVESTOCK FARMWORKER procedure a re in GLUCOSE, BUN, the results CREATININE, CA) section. MAGNESIUM Routine 08/19/2019 3:21 Results for this AM LIVESTOCK FARMWORKER procedure are i n the results section. POCT GLUCOSE Routine 08/18/2019 7:29 Results for this (AUTOMATED) PM LIVESTOCK FARMWORKER procedure are i n the results section. POCT GLUCOSE Routine 08/18/2019 4:17 Results for this (AUTOMATED) PM LIVESTOCK FARMWORKER procedure are i n the results section. BASIC METABOLIC PANEL Routine 08/18/2019 2:39 Re sults for this (NA, K, CL, CO2, PM LIVESTOCK FARMWORKER procedure a re in GLUCOSE, BUN, the results CREATININE, CA) section. BASIC METABOLIC PANEL Routine 08/18/2019 11:37 Re sults for this (NA, K, CL, CO2, AM LIVESTOCK FARMWORKER procedure a re in GLUCOSE, BUN, the results CREATININE, CA) section. POCT GLUCOSE Routine 08/18/2019 11:11 Results for this (AUTOMATED) AM LIVESTOCK FARMWORKER procedure are i n the results section. POCT GLUCOSE Routine 08/18/2019 7:32 Results for this (AUTOMATED) AM [employer]IVESTOCK FARMWORKER procedure are i n the results section. CBC WITH DIFFERENTIAL Routine 08/18/2019 3:33 Re sults for this AM [employer]IVE[employer]OCK FARMWORKER procedure are i n the results section. N-TERMINAL PRO-BNP Add-on 08/18/2019 3:33 Resul ts for this AM [employer]OCK FARMWORKER procedure are i n the results section. PROTHROMBIN TIME / Routine 08/18/2019 3:33 Resul ts for this INR AM [employer]OCK FARMWORKER procedure are i n the results section. CBC WITH DIFFERENTIAL Routine 08/18/2019 3:33 Re sults for this AM [employer]OCK FARMWORKER procedure are i n the results section. BASIC METABOLIC PANEL Routine 08/18/2019 3:33 Re sults for this (NA, K, CL, CO2, AM [employer]IVE[employer]OCK FARMWORKER procedure a re in GLUCOSE, BUN, the results CREATININE, CA) section. MAGNESIUM Routine 08/18/2019 3:33 Results for this AM [employer]IVESTOCK FARMWORKER procedure are i n the results section. POCT GLUCOSE Routine 08/17/2019 8:22 Results for this (AUTOMATED) PM [employer]OCK FARMWORKER procedure are i n the results section. POCT GLUCOSE Routine 08/17/2019 5:51 Results for this (AUTOMATED) PM [employer]OCK FARMWORKER procedure are i n the results section. PROTHROMBIN TIME / STAT 08/17/2019 4:41 Hypokalemia Resul ts for this INR PM [employer]OCK FARMWORKER procedure are i n the results section. EKG-12 LEAD Routine 08/17/2019 4:16 PM [employer]IVESTOCK FARMWORKER CBC WITH DIFFERENTIAL STAT 08/17/2019 4:06 Hypokalemia Re sults for this PM [employer]IVESTOCK FARMWORKER procedure are i n the results section. GLYCOSYLATED Add-on 08/17/2019 4:06 Results for this HEMOGLOBIN (A1C) PM [employer]OCK FARMWORKER procedure a re in the results section. CBC WITH DIFFERENTIAL STAT 08/17/2019 4:06 Hypokalemia Re sults for this PM [employer]IVESTOCK FARMWORKER procedure are i n the results section. COMP. METABOLIC PANEL STAT 08/17/2019 4:06 Hypokalemia Re sults for this (24114) PM [employer]IVE[employer]OCK FARMWORKER procedure are i n the results section. MAGNESIUM STAT 08/17/2019 4:06 Hypokalemia Results for this PM [employer]IVESTOCK FARMWORKER procedure are i n the results section. EKG-12 LEAD Routine 08/17/2019 3:59 PM LIVESTOCK FARMWORKER CONSENT/REFUSAL FOR Routine 08/17/2019 3:28 DIAGNOSIS AND PM [employer]OCK FARMWORKER TREATMENT documented in this encounter Results POCT GLUCOSE (AUTOMATED) (08/19/2019 10:56 AM LIVESTOCK FARMWORKER) Pathologist Sig nature POCT GLU 178 (H) 70 - 110 mg/dL [facility] Specimen Blood Performing Organization Address [facility] Phone Number [facility] CLIA: [id number], [address] [place] POCT GLUCOSE (AUTOMATED) (08/19/2019 7:12 AM LIVESTOCK FARMWORKER) Pathologist Sig nature POCT GLU 149 (H) 70 - 110 mg/dL [facility] Specimen Blood Performing Organization Address [facility] Phone Number [facility] CLIA: [id number], [address] MAGNESIUM (08/19/2019 3:21 AM LIVESTOCK FARMWORKER) Pathologist Sig nature MAGNESIUM 2.2 1.7 - 2.4 mg/dL [facility] Specimen Blood - LINE, VENOUS Performing Organization Address City/[facility]/Zipcode Phone Number [facility] CLIA: [id number], [address] N-TERMINAL PRO-BNP (08/19/2019 3:21 AM LIVESTOCK FARMWORKER) Pathologist Sig nature NT-proBNP 46 <=125 pg/mL [facility] Specimen Blood - LINE, VENOUS Narrative Performed At Biotin has been reported to cause a negative [facility] bias, interpret results relative to patient's use of biotin. Performing Organization Address City/[facility] Phone Number [facility] CLIA: [id number], [address] [address] [address] [facility] Basic Metabolic Panel (NA, K, CL, CO2, GLUCOSE, BUN, CREATININE, CA) (08/19/2019 3:21 AM LIVESTOCK FARMWORKER) Pathologist [facility] nature NA 137 135 - 145 [facility] mmol/L [facility] K 3.5 3.5 - 5.0 [facility] mmol/L [facility] CL 97 (L) 98 - 108 mmol/L [facility] CO2 TOTAL 34 (H) 23 - 31 mmol/L [facility] AGAP 6 2 - 16 [facility] BUN 18 7 - 23 mg/dL [facility] GLUCOSE 151 (H) 70 - 110 mg/dL [facility] CREATININE 1.06 0.60 - 1.25 [facility] mg/dL [facility]ORY CALCIUM 9.7 8.6 - 10.6 [facility] mg/dL [facility] eGFR Calculation 74.0 mL/min/1.73m2 [facility] (Non-[facility] LABORATORY [place]) eGFR Calculation 89.6 mL/min/1.73m2 [facility] () [facility] Specimen Blood - LINE, VENOUS Narrative Performed At Association of Glomerular Filtration Rate (GFR) [facility] and Staging of Kidney Disease* [...] in imaging tests). Performing Organization Address [facility] Phone Number [facility]: [id number], [address] [place] [address] PROTHROMBIN TIME / INR (08/19/2019 3:21 AM LIVESTOCK FARMWORKER) PROTIME PATIENT 22.1 (H) 12.0 - 14.7 [facility] LABORATORY INR 2.0Comment: Normal [facility] INR <1.1; Warfarin [facility] Therapeutic range LABORATORY 2.0 to 3.0 or 2.5 to 3.5, depending upon the indications. Specimen Blood - LINE, VENOUS Performing Organization Address [facility] Phone Number [facility] CLIA: [id number], [address] [place] [address] POCT GLUCOSE (AUTOMATED) (08/18/2019 7:29 PM LIVESTOCK FARMWORKER) Pathologist [facility] nature POCT GLU 266 (H) 70 - 110 mg/dL [facility] Specimen Blood Performing Organization Address [facility] Phone Number [facility] CLIA: [id number], [address] [place] [address] POCT GLUCOSE (AUTOMATED) (08/18/2019 4:17 PM LIVESTOCK FARMWORKER) Pathologist [facility] nature POCT GLU 190 (H) 70 - 110 mg/dL [facility] Specimen Blood Performing Organization Address [facility] Phone Number [facility] CLIA: [id number], [address] [place] [address] BASIC METABOLIC PANEL (NA, K, CL, CO2, GLUCOSE, BUN, CREATININE, CA) (08/18/2019 2:39 PM LIVESTOCK FARMWORKER) NA 135 135 - 145 [facility] mmol/L [facility] K 3.7 3.5 - 5.0 [facility] mmol/L [facility] CL 94 (L) 98 - 108 mmol/L [facility] CO2 TOTAL 34 (H) 23 - 31 mmol/L [facility] AGAP 7 2 - 16 [facility] BUN 18 7 - 23 mg/dL [facility] GLUCOSE 236 (H) 70 - 110 mg/dL [facility] CREATININE 1.29 (H) 0.60 - 1.25 [facility] mg/dL [facility] CALCIUM 9.7 8.6 - 10.6 [facility] mg/dL [facility] eGFR Calculation 59.0 mL/min/1.73m2 [facility] (Non-[facility] LABORATORY [place]) eGFR Calculation 71.5 mL/min/1.73m2 [facility] () [facility] Specimen Blood - ARM, RIGHT Narrative Performed At Association of Glomerular Filtration Rate (GFR) [facility] and Staging of Kidney Disease* [...] tests). Performing Organization Address City/State/Zipcode Phone Number [facility] CLIA: [id number], [address] [place], [place] [address] BASIC METABOLIC PANEL (NA, K, CL, CO2, GLUCOSE, BUN, CREATININE, CA) (08/18/2019 11:37 AM LIVESTOCK FARMWORKER) [facility] NA 137 135 - 145 [facility] mmol/L [facility] K 3.5 3.5 - 5.0 [facility] mmol/L [facility] CL 93 (L) 98 - 108 mmol/L [facility] CO2 TOTAL 35 (H) 23 - 31 mmol/L [facility] AGAP 9 2 - 16 [facility] BUN 18 7 - 23 mg/dL [facility] GLUCOSE 164 (H) 70 - 110 mg/dL [facility] CREATININE 1.13 0.60 - 1.25 [facility] mg/dL [facility] CALCIUM 9.8 8.6 - 10.6 [facility] mg/dL [facility] eGFR Calculation 68.7 mL/min/1.73m2 [facility] (Non-[facility] LABORATORY [place]) eGFR Calculation 83.3 mL/min/1.73m2 [facility] () [facility] Specimen Blood - ARM, RIGHT Narrative Performed At Association of Glomerular Filtration Rate (GFR) [facility] and Staging of Kidney Disease* [...] tests). Performing Organization Address City/State/Zipcode Phone Number [facility] CLIA: [id number], [address] [place], [place] [address] POCT GLUCOSE (AUTOMATED) (08/18/2019 11:11 AM LIVESTOCK FARMWORKER) Pathologist Sig [facility] POCT GLU 169 (H) 70 - 110 mg/dL [facility] Specimen Blood Performing Organization Address [facility] Phone Number [facility] CLIA: [id number], [address], [place] [address] POCT GLUCOSE (AUTOMATED) (08/18/2019 7:32 AM LIVESTOCK FARMWORKER) Pathologist Sig [facility] POCT GLU 156 (H) 70 - 110 mg/dL [facility] Specimen Blood Performing Organization Address [facility] Phone Number [facility] CLIA: [id number], [address] [place] [address] N-TERMINAL PRO-BNP (08/18/2019 3:33 AM LIVESTOCK FARMWORKER) Pathologist Sig [facility] NT-proBNP 44 <=125 pg/mL [facility] Specimen Blood - ARM, RIGHT Narrative Performed At Biotin has been reported to cause a negative [facility] bias, interpret results relative to patient's use of biotin. Performing Organization Address [facility] Phone Number [facility] CLIA: [id number], [address] CBC WITH DIFFERENTIAL (08/18/2019 3:33 AM LIVESTOCK FARMWORKER) Pathologist Sig nature WBC 9.22 4.20 - 10.70 [facility] 10*3/L HOSPITAL LAB[facility]ATORY RBC 5.11 4.26 - 5.52 [facility] 10*6/L H[facility]ITAL [facility] HGB 12.8 12.2 - 16.4 [facility] g/dL [facility] HCT 39.8 38.4 - 49.3 % [facility] MCV 77.9 (L) 81.7 - 95.6 fL [facility] MCH 25.0 (L) 26.1 - 32.7 pg [facility] MCHC 32.2 31.2 - 35.0 [facility] g/dL HOSPITAL LAB[facility]ORY RDW-SD 43.1 38.5 - 51.6 fL [facility] RDW-CV 15.4 12.1 - 15.4 % [facility] PLT 314 150 - 328 [facility] 10*3/L HOSPITAL LAB[facility]ORY MPV 9.8 9.8 - 13.0 fL [facility] NRBC/100 WBC 0.0 0.0 - 10.0 /100 [facility] WBCs [facility] NRBC x10^3 <0.01 10*3/L [facility] GRAN MAT (NEUT) % 71.3 % [facility] IMM GRAN % 0.20 % [facility] LYMPH % 19.7 % [facility] MONO % 7.2 % [facility] EOS % 1.2 % [facility] BASO % 0.4 % [facility] GRAN MAT x10^3(ANC) 6.57 1.99 - 6.95 [facility] 10*3/uL [facility] IMM GRAN x10^3 <0.03 0.00 - 0.06 [facility] 10*3/uL [facility] LYMPH x10^3 1.82 1.09 - 3.23 [facility] 10*3/uL [facility] MONO x10^3 0.66 0.36 - 1.02 [facility] 10*3/uL [facility] EOS x10^3 0.11 0.06 - 0.53 [facility] 10*3/uL HOSPITAL LAB[facility] BASO x10^3 0.04 0.01 - 0.09 [facility] 10*3/uL [facility] Specimen Blood - ARM, RIGHT Performing Organization Address City/[facility]/Zipcode Phone Number [facility] CLIA: [id number], [address], [place] [address] MAGNESIUM (08/18/2019 3:33 AM LIVESTOCK FARMWORKER) Pathologist [facility] nature MAGNESIUM 2.3 1.7 - 2.4 mg/dL [facility] Specimen Blood - ARM, RIGHT Performing Organization Address City/[facility] Phone Number [facility] CLIA: [id number], [address], [place] [address] Basic Metabolic Panel (NA, K, CL, CO2, GLUCOSE, BUN, CREATININE, CA) (08/18/2019 3:33 AM LIVESTOCK FARMWORKER) NA 137 135 - 145 [facility] mmol/L [facility] K 2.7 (LL) 3.5 - 5.0 [facility] mmol/L [facility] CL 89 (L) 98 - 108 mmol/L [facility] CO2 TOTAL 40 (H) 23 - 31 mmol/L [facility] AGAP 8 2 - 16 [facility] BUN 19 7 - 23 mg/dL [facility] GLUCOSE 149 (H) 70 - 110 mg/dL [facility] CREATININE 1.23 0.60 - 1.25 [facility] mg/dL [facility] CALCIUM 9.8 8.6 - 10.6 [facility] mg/dL [facility] eGFR Calculation 62.3 mL/min/1.73m2 [facility] (Non-[facility] LABORATORY [place]) eGFR Calculation 75.5 mL/min/1.73m2 [facility] () [facility] Specimen Blood - ARM, RIGHT Narrative Performed At Association of Glomerular Filtration Rate (GFR) [facility] and Staging of Kidney Disease* [...] tests). Performing Organization Address City/State/Zipcode Phone Number [facility] CLIA: [id number], [address] [place], [place] [address] PROTHROMBIN TIME / INR (08/18/2019 3:33 AM LIVESTOCK FARMWORKER) PROTIME PATIENT 21.1 (H) 12.0 - 14.7 [facility] LABORATORY INR 1.9Comment: Normal [facility] INR <1.1; Warfarin HOSPITAL Therapeutic range LABORATORY 2.0 to 3.0 or 2.5 to 3.5, depending upon the indications. Specimen Blood - ARM, RIGHT Performing Organization Address City/[facility] Phone Number [facility] CLIA: [id number], [address] POCT GLUCOSE (AUTOMATED) (08/17/2019 8:22 PM LIVESTOCK FARMWORKER) [facility] [employer] POCT GLU 180 (H) 70 - 110 mg/dL [facility] Specimen Blood Performing Organization Address [facility] Phone Number [facility] CLIA: [id number], [address] POCT GLUCOSE (AUTOMATED) (08/17/2019 5:51 PM LIVESTOCK FARMWORKER) [facility] [employer] POCT GLU 165 (H) 70 - 110 mg/dL [facility] Specimen Blood Performing Organization Address [facility] Phone Number [facility] CLIA: [id number], [address] PROTHROMBIN TIME / INR (08/17/2019 4:41 PM LIVESTOCK FARMWORKER) PROTIME PATIENT 20.4 (H) 12.0 - 14.7 [facility] LABORATORY INR 1.8Comment: Normal [facility] INR <1.1; Warfarin HOSPITAL Therapeutic range LABORATORY 2.0 to 3.0 or 2.5 to 3.5, depending upon the indications. Specimen Blood - VENOUS Performing Organization Address [facility] Phone Number [facility] CLIA: [id number], [address] GLYCOSYLATED HEMOGLOBIN (A1C) (08/17/2019 4:06 PM LIVESTOCK FARMWORKER) Pathologist Sig nature HGB A1C 7.8 (H) 4.0 - 6.0 % [facility] LABORATORY Specimen Blood - VENOUS Narrative Performed At %A1C (NGSP) Interpretation (ADA) [facility] 4.8-5.6 Normal or (Non-Diabetic Ra nge) 5.7-6.4 Increased Risk (Pre-Diabet ic) >6.5 Diabetes Indicated Performing Organization Address City/State/Zipcode Phone Number [facility] CLIA: [id number], [address] [place], [place] [address] CBC WITH DIFFERENTIAL (08/17/2019 4:06 PM LIVESTOCK FARMWORKER) Pathologist [facility] WBC 10.13 4.20 - 10.70 [facility] 10*3/L [facility] RBC 5.31 4.26 - 5.52 [facility] 10*6/L [facility] HGB 13.3 12.2 - 16.4 [facility] g/dL [facility] HCT 41.3 38.4 - 49.3 % [facility] MCV 77.8 (L) 81.7 - 95.6 fL [facility] MCH 25.0 (L) 26.1 - 32.7 pg [facility] MCHC 32.2 31.2 - 35.0 [facility] g/dL [facility] RDW-SD 43.1 38.5 - 51.6 fL [facility] RDW-CV 15.5 (H) 12.1 - 15.4 % [facility] PLT 343 (H) 150 - 328 [facility] 10*3/L [facility]ORY MPV 9.6 (L) 9.8 - 13.0 fL [facility] NRBC/100 WBC 0.0 0.0 - 10.0 /100 [facility] WBCs [facility] NRBC x10^3 <0.01 10*3/L [facility] GRAN MAT (NEUT) % 73.2 % [facility] IMM GRAN % 0.40 % [facility] LYMPH % 18.2 % [facility] MONO % 7.1 % [facility] EOS % 0.8 % [facility] BASO % 0.3 % [facility] GRAN MAT x10^3(ANC) 7.42 (H) 1.99 - 6.95 [facility] 10*3/uL [facility] IMM GRAN x10^3 0.04 0.00 - 0.06 [facility] 10*3/uL [facility] LYMPH x10^3 1.84 1.09 - 3.23 [facility] 10*3/uL [facility] MONO x10^3 0.72 0.36 - 1.02 [facility] 10*3/uL [facility] EOS x10^3 0.08 0.06 - 0.53 [facility] 10*3/uL [facility] BASO x10^3 0.03 0.01 - 0.[address]uL [facility] Specimen Blood - VENOUS Performing Organization Address City/State/Zipcode Phone Number [facility] CLIA: [id number], [address] [place], [place] [address] COMP. METABOLIC PANEL (44594) (08/17/2019 4:06 PM LIVESTOCK FARMWORKER) NA 137 135 - 145 [facility] mmol/L [facility] K 2.5 (LL) 3.5 - 5.0 [facility] mmol/L [facility] CL 84 (L) 98 - 108 [facility] mmol/L [facility] CO2 TOTAL 39 (H)Comment: 23 - 31 [facility] Previous mmol/L [facility] preliminary LABORATORY verified result was >40 mmol/L on 08/17/2019 at 1634 LIVESTOCK FARMWORKER AGAP 14 2 - 16 [facility] BUN 20 7 - 23 mg/dL [facility] GLUCOSE 230 (H) 70 - 110 [facility] mg/dL [facility]ORY CREATININE 1.14 0.60 - 1.25 [facility] mg/dL [facility] TOTAL BILI 0.5 0.1 - 1.1 [facility] mg/dL [facility]ORY CALCIUM 10.1 8.6 - 10.6 [facility] mg/dL [facility] T PROTEIN 8.2 6.3 - 8.2 [facility] g/dL [facility] ALBUMIN 4.4 3.5 - 5.0 [facility] g/dL [facility] LABOR[facility]ORY ALK PHOS 118 34 - 122 U/L [facility] ALTv 29 5 - 50 U/L [facility] AST(SGOT) 32 13 - 40 U/L [facility] eGFR Calculation 68.0 mL/min/1.73m [facility] (Non- [address] [place] [address] [place]) LABORATORY eGFR Calculation 82.4 mL/min/1.73m [facility] () [address] [place] [address] LABORATORY Specimen Blood - VENOUS Narrative Performed At [facility] of Glomerular Filtration Rate (GFR) [facility] and Staging of Kidney Disease* [...] abnormalities in imaging tests). Performing Organization Address City/[facility] Phone Number [facility] CLIA: [id number], [address] [place] [address] MAGNESIUM (08/17/2019 4:06 PM LIVESTOCK FARMWORKER) [facility] MAGNESIUM 1.8 1.7 - 2.4 mg/dL [facility] Specimen Blood - VENOUS Performing Organization Address [facility]/Zipcode Phone Number [facility] [id number], [address] [place], [place] [address] [facility] documented in this encounter Visit Diagnoses Diagnosis Hypokalemia - Primary Hypopotassemia Chronic congestive heart failure, unspec ified heart failure type Severe episode of recurrent major depres sive disorder, without psychotic features Generalized anxiety disorder Acute hypokalemia Hypopotassemia Chronic diastolic congestive heart failu re Chronic diastolic heart failure Coronary artery disease involving [place] coronary artery of [place] heart with angina pectoris Essential hypertension Unspecified essential hypertension Morbid obesity with body mass index of 4 0.0-49.9 Pacemaker Cardiac pacemaker in situ Type 2 diabetes mellitus without complic ation Pulmonary emboli Other pulmonary embolism and infarction documented in this encounter Administered Medications Medication Order MAR Action Action Date Dose Rate Site allopurinoL (ZYLOPRIM) tablet 300 Given 08/19/2019 8:04 AM LIVESTOCK FARMWORKER 300 mg mg 300 mg, Oral, DAILY, First dose on Fri08/18/19 at 0900, Until Discontinued, Routine Given 08/18/2019 8:14 AM LIVESTOCK FARMWORKER 300 mg ARIPiprazole (ABILIFY) tablet 15 mg Given 08/19/2019 8:05 AM LIVESTOCK FARMWORKER 15 mg 15 mg, Oral, DAILY, First dose on Fri08/18/19 at 0900, Until Discontinued, Routine Given 08/18/2019 8:14 AM LIVESTOCK FARMWORKER 15 mg atorvastatin (LIPITOR) tablet 40 mg Given 08/18/2019 7:44 PM LIVESTOCK FARMWORKER 40 mg 40 mg, Oral, QHS, First dose on Fri08/17/19 at 2100, Until Discontinued, Routine Given 08/17/2019 9:08 PM LIVESTOCK FARMWORKER 40 mg buprenorphine-naloxone (SUBOXONE) 8-2 mg Given 08/19/2019 8:12 AM LIVESTOCK FARMWORKER 8 mg sublingual film 8 mg 8 mg, Sublingual, [id number], Starting Fri08/17/19 at 1823, Until Discontinued, Routine, Pain (scale 7-10), Reason for Non-Formulary Use: PATIENT CURRENTLY TAKING NONFORMULARY PRODUCT, fast food crew member approving Non-formulary medication: MEGADC Given 08/18/2019 7:48 PM [employer] 8 mg Given 08/18/2019 8:13 AM [employer] 8 mg clonazePAM (KLONOPIN) tablet 1 mg Given 08/19/2019 1:24 PM [employer] 1 mg 1 mg, Oral, TID, First dose on Fri08/17/19 at 2000, Until Discontinued, Routine Given 08/19/2019 8:05 AM [employer] 1 mg Given 08/18/2019 7:44 PM [employer] 1 mg clonazePAM (KLONOPIN) tablet 1 mg Given 08/19/2019 3:27 AM [employer] 1 mg 1 mg, Oral, QHSPRN, Starting Fri08/19/19 at 0325, Until Discontinued, Routine, anxiety clopidogreL (PLAVIX) tablet 75 mg Given 08/19/2019 8:06 AM LIVESTOCK FARMWORKER 75 mg 75 mg, Oral, DAILY, First dose on Fri08/18/19 at 0900, Until Discontinued, Routine Given 08/18/2019 8:14 AM LIVESTOCK FARMWORKER 75 mg desvenlafaxine succinate (PRISTIQ) 24 hr Given 08/19/2019 8:06 AM LIVESTOCK FARMWORKER 200 mg tablet 200 mg 200 mg, Oral, DAILY, First dose on Fri08/19/19 at 0900, Until Discontinued, Routine Given 08/18/2019 11:17 AM LIVESTOCK FARMWORKER 200 mg eplerenone (INSPRA) tablet 50 mg Given 08/19/2019 8:07 AM LIVESTOCK FARMWORKER 50 mg 50 mg, Oral, BID, First dose on Fri08/18/19 at 2000, Until Discontinued, Routine Given 08/18/2019 7:45 PM LIVESTOCK FARMWORKER 50 mg ferrous sulfate tablet 325 mg Given 08/19/2019 1:24 PM LIVESTOCK FARMWORKER 325 mg 325 mg, Oral, TID MEALS, First dose on Fri08/18/19 at 0800, Until Discontinued, Routine Given 08/19/2019 8:06 AM LIVESTOCK FARMWORKER 325 mg Given 08/18/2019 4:52 PM LIVESTOCK FARMWORKER 325 mg insulin glargine (LANTUS U-100) Given 08/19/2019 8:15 AM LIVESTOCK FARMWORKER 14 Units Right Arm injection 14 Units 14 Units, Subcutaneous, DAILY, First dose on Fri08/18/19 at 0900, Until Discontinued Given 08/18/2019 8:15 AM LIVESTOCK FARMWORKER 14 Units Left Upper Arm-SC KCL (KLOR-CON M20) tablet 40 mEq Given 08/19/2019 1:24 PM LIVESTOCK FARMWORKER 40 mEq 40 mEq, Oral, TID, First dose on Fri08/18/19 at 2000, Until Discontinued, LIVIA Given 08/19/2019 8:05 AM LIVESTOCK FARMWORKER 40 mEq Given 08/18/2019 7:44 PM LIVESTOCK FARMWORKER 40 mEq magnesium oxide (MAG-OX 400) tablet 400 mg Given 08/19/2019 8:06 AM LIVESTOCK FARMWORKER 400 mg 400 mg, Oral, BID, First dose on Fri08/18/19 at 0800, Until Discontinued Given 08/18/2019 7:44 PM LIVESTOCK FARMWORKER 400 mg Given 08/18/2019 8:13 AM LIVESTOCK FARMWORKER 400 mg methocarbamol (ROBAXIN) tablet 750 mg Given 08/19/2019 8:06 AM LIVESTOCK FARMWORKER 750 mg 750 mg, Oral, BID, First dose on Fri08/17/19 at 2000, Until Discontinued, Routine Given 08/18/2019 7:44 PM LIVESTOCK FARMWORKER 750 mg Given 08/18/2019 8:13 AM LIVESTOCK FARMWORKER 750 mg pantoprazole (PROTONIX) EC tablet 40 mg Given 08/19/2019 8:06 AM LIVESTOCK FARMWORKER 40 mg 40 mg, Oral, BID, First dose on Fri08/17/19 at 1999, Until Discontinued, Routine Given 08/18/2019 7:44 PM LIVESTOCK FARMWORKER 40 mg Given 08/18/2019 8:14 AM LIVESTOCK FARMWORKER 40 mg ranolazine (RANEXA) 12 hr tablet 1,000 m g Given 08/19/2019 8:06 AM LIVESTOCK FARMWORKER 1,000 mg 1,000 mg, Oral, BID, First dose on Fri08/17/19 at 1999, Until Discontinued Given 08/18/2019 7:44 PM LIVESTOCK FARMWORKER 1,000 mg Given 08/18/2019 8:14 AM LIVESTOCK FARMWORKER 1,000 mg Sliding Scale Insulin - Aspart Given 08/19/2019 11:50 AM LIVESTOCK FARMWORKER 1 U nits Right Arm (NOVOLOG) + Fsbg Testing Subcutaneous, TID MEALS+HS, First dose on Fri08/17/19 at 1700, Until Discontinued, Routine Given 08/18/2019 7:45 PM LIVESTOCK FARMWORKER 2 Units Left Upper Arm-SC Given 08/18/2019 4:52 PM LIVESTOCK FARMWORKER 1 Units Righ t Upper Arm-SC warfarin (COUMADIN) tablet 10 mg Given 08/18/2019 4:52 PM LIVESTOCK FARMWORKER 10 mg 10 mg, Oral, DAILY AT 1700, First dose on Fri08/18/19 at 1700, Until Discontinued, Routine Medication Order MAR Action Action Date Dose Rate Site clonazePAM (KLONOPIN) tablet 1 mg Given 08/18/2019 3:28 AM LIVESTOCK FARMWORKER 1 mg 1 mg, Oral, ONCE, 1 dose, Fri08/18/19 at 0330, Routine eplerenone (INSPRA) tablet 50 mg Given 08/18/2019 8:14 AM LIVESTOCK FARMWORKER 50 mg 50 mg, Oral, DAILY, First dose on Fri08/18/19 at 0900, Until Discontinued, Routine KCL (KLOR-CON M20) tablet 60 mEq Given 08/17/2019 9:08 PM LIVESTOCK FARMWORKER 60 mEq 60 mEq, Oral, TID, First dose on Fri08/17/19 at 2000, Until Discontinued, Routine KCL (KLOR-CON M20) tablet 60 mEq Given 08/18/2019 1:40 PM LIVESTOCK FARMWORKER 60 mEq 60 mEq, Oral, QID, First dose on Fri08/18/19 at 0545, Until Discontinued, LIVIA Given 08/18/2019 8:13 AM LIVESTOCK FARMWORKER 60 mEq Given 08/18/2019 6:05 AM LIVESTOCK FARMWORKER 60 mEq KCL (POTASSIUM CHLORIDE) 20 mEq in NaCl 0.9% Given 7:16 PM LIVESTOCK FARMWORKER 20 mEq (NS) 100 mL piggyback 20 mEq, IV Piggyback, ONCE, 1 dose, Fri08/17/19 at 1745, 100 mL KCL (POTASSIUM CHLORIDE) 20 mEq in NaCl 0.9% Given 5:03 PM LIVESTOCK FARMWORKER 20 mEq (NS) 100 mL piggyback 20 mEq, IV Piggyback, ONCE, 1 dose, Fri08/17/19 at 1745, 100 mL KCL (POTASSIUM CHLORIDE) 20 mEq in NaCl 0.9% Given 9:30 PM LIVESTOCK FARMWORKER 20 mEq (NS) 100 mL piggyback 20 mEq, IV Piggyback, ONCE, 1 dose, Fri08/17/19 at 1745, 100 mL KCL (POTASSIUM CHLORIDE) 20 mEq in NaCl 0.9% Given 8:00 AM LIVESTOCK FARMWORKER 20 mEq (NS) 100 mL piggyback 20 mEq, IV Piggyback, Q2H, 2 doses, First dose on Fri08/18/19 at 0545, Last dose on Fri08/18/19 at 0600, 100 mL Given 08/18/2019 5:45 AM 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 HMO HEALTH CHOICE HEALTH CHOICE nt [phone] [place] [address] (Home) [place] [address] documented as of this encounter Advance Directives Name Relationship Healthcare Agent Communication Relationship Keaton Jonilynne Spouse Primary healthcare agent Elisabeth Soliz Sibling First [facility] healthcare agent (Mobile)
--- OUTSIDE RECORDS SUMMARY | 2019-11-07 22:13 | XMS REPORT | Summary of Care ---
:1970 Author Organization [facility] Address [address] [place] [address] Care Team Providers Name Role Phone Elmer Andrade MD Primary Care Provider NAVJOT Espinoza Unavailable Unavailable MD Rocco Unavailable Mary Quezada MD Unavailable Genna Anand Unavailable Unavailable MD Casimiro Unavailable Ricardo Rodriguez DO Staple Cutter Reason for Visit Reason Comments Notification LAB WORK Encounter Details Date Type Department Care Team Description 08/20/2019 Telephone [facility] Cardiology- Robert Adkins otification; LAB WORK [place] MD Namita [address] [address] [facility] [id number] [place] [address] [id number] Allergies Active Allergy Reactions Severity Noted Date [...] as of this encounter (statuses as of 08/24/2019) Medications Medication Sig Dispensed Refills Start Date [...] methocarbamol 750 mg Take 750 mg by mouth 0 Active tablet 2 (two) times daily. buprenorphine-naloxone Place 8 mg under the 0 Active (SUBOXONE) 8-2 mg tongue every 12 sublingual film (twelve) hours as needed for Pain (scale 7-10). clopidogrel (PLAVIX) 75 mg Take 1 tablet by 90 tablet 3 2018 Active tablet mouth daily. atorvastatin (LIPITOR) 40 Take 1 tablet by 90 tablet 3 019 Active mg tablet mouth at bedtime. furosemide (LASIX) [...] sulfate (IRON) 325 Take 1 tablet by 270 tablet 3 11/06 Active mg (65 mg iron) mouth 3 (three) [...] mg 24 hr Take 1 tablet by 90 tablet 3 019 Active tabletIndications: Type 2 mouth daily with diabetes mellitus with breakfast. cardiac complication dulaglutide (TRULICITY) inject 0.75 mg under 4 Syringe 4 02/24 Active 0.75 mg/0.5 mL the skin weekly. PnIjIndications: Type 2 diabetes mellitus with cardiac complication Ranolazine 1,000 mg tablet Take 1 tablet by 60 tablet 4 2018 Active mouth 2 (two) times daily. ZINC ORAL [...] MOUTH EVERY SIX Non-intractable vomiting HOURS NEEDED FOR with nausea, unspecified NAUSEA OR VOMITING vomiting type testosterone (ANDROGEL) Apply 2 Pumps to 75 g 3 9 Active 20.25 mg/1.25 gram (1.62 area(s) daily. %) gel pumpIndications: Low testosterone cyanocobalamin (VITAMIN 1 mL by 12 mL 3 06/18/2019 Active B-12) 1,000 mcg/mL Intramuscular route injectionIndications: every 2 (two) weeks. Vitamin B12 deficiency clindamycin 1 % Apply to affected 60 mL 6 06/11/2019 Active solutionIndications: area(s) 2 (two) Folliculitis times daily. urea 40 % Apply to area(s) 198 g 6 06/11/2019 A ctive creamIndications: Xerosis daily. cutis ondansetron (ZOFRAN ODT) 4 Take 1 tablet by 14 tablet 0 2019 Active mg disintegrating mouth every 8 tabletIndications: (eight) hours as Hyperglycemia needed for Nausea and Vomiting (N/V). Insulin [place], Use as directed, 1x 100 Each 1 [...] the Generalized anxiety afternoon, 1 pill PO disorder, Panic disorder in the evening. May without agoraphobia take additional 1 pill as needed acute [...] by 15 tablet 2 08/13/2019 Active tabletIndications: Vitamin mouth every Friday, B12 deficiency Friday and Friday. eplerenone 50 mg Take 1 tablet by 60 tablet 0 08/19/201909/17 Active tabletIndications: mouth 2 (two) times 0 20 Hypokalemia daily for 30 days. KCL 20 mEq Take 2 tablets by 180 tablet 0 08/19/2019 Active tabletIndications: mouth 3 (three) 020 Hypokalemia times daily for 30 days. documented as of this encounter (statuses as of 08/24/2019) Active Problems Problem Noted Date Acute hypokalemia [...] Added automatically from request for lillian lawson [id number] Syncope 04/01/2017 Chest pain, rule out acute [...] Chest pain 06/12/2016 Coronary artery disease involving [place] coronary brise[place]da ry of [place] heart 06/12/2016 with angina pectoris ME (myocardial infarction) 06/12/2016 Type 2 diabetes mellitus without complication 06/12/20 16 Essential hypertension 06/12/2016 History of alcohol abuse Overview: Sober for 16 years documented as of this encounter (statuses as of 08/24/2019) Resolved Problems Problem Noted Date Resolved Date Chest pain radiating to arm 08/08/2016 08/19/2016 Abdominal pain 07/19/2016 08/19/2016 History of epidural anesthesia 07/04/2016 7 Morbid obesity with body mass index of 50 or higher 06/26/19 17 08/19/2016 Obesity (BMI 30-39.9) 06/12/2016 08/19/2016 documented as of this encounter (statuses as of 08/24/2019) Immunizations Name Administration Dates Next Due Td [...] Treatment Date Type Specialty Care Team Description 08/24/2019 Office Visit Oncology Lincoln Griffiths MD [address] [place], [place] [address] [phone] 08/24/2019 Office Visit Cardiology Robert Adkins MD [address] [place], [place] [address] 08/27/2019 Office Visit Cardiology Practitioner, Heart Failure Nurse 08/27/2019 Nurse Visit Anti-coagulation Clinic Nurse, Vtc Antico ag 08/27/2019 Office Visit Gastroenterology Jorge Luis Mccarty MD [address] [place] [address] [phone] 09/09/2019 Office Visit Psychiatry Mendez Martinez MD [address] [place] [address]. [place] [address] 09/09/2019 Office Visit Internal Medicine Lilibeth Andrade MD [address] [address] [phone] 10/12/2019 Office Visit Internal Medicine Lilibeth Andrade MD [address] [address] [phone] 10/19/2019 Office Visit Endocrinology Diabetes & JonesTre MD [address] [address] [phone] 10/27/2019 Office Visit Pulmonary Disease Max Aguiar MD [address] [address] [phone] 11/02/2019 Office Visit Internal Medicine Lilibeth Andrade MD [address] [facility] [address] [place], [place] [address] [phone] 12/02/2019 Appointment Cardiac Electrophysiology Outpt-Simi, Pacemaker/Icd 12/08/2019 Office Visit Ophthalmology Yariel Tineo MD [address] [place], [place] [address] 02/08/2020 Office Visit Cardiology Robert Adkins MD [address] [place], [place] [address] Name Type Priority Associated Diagnoses Order S chedule BASIC METABOLIC PANEL LAB Routine Chronic heart failu re 1 Occurrences starting (12192)(NA, K, CL, CO2, with preserved ej ection 08/23/2019 until GLUCOSE, BUN, fraction 08/22/2020 CREATININE, CA) Health Maintenance Due Date Last [...] 2019 ( Insurance / Financial) CREATININE (SERUM) 08/19/2020 08/19/2019, 08/18/2019, 08/18/2019, Additional history exists COLONOSCOPY 04/22/2027 04/22/2017 DTaP,Tdap,and Td Vaccines 06/26/2027 06/26/2017, 03/19/2015 Postponed from (1 - Tdap) 1980 (Not Indicated) documented as of this encounter Implants Implanted Type Area Utility Teller Device Shelf Model / Identifier Expiration Serial / Date Lot Prolene Mesh MESH Right: Ethicon 12/20/2020 PMSK / Implanted: Qty: 1 on 07/04/2016 by Alfonso Martinez MD at [facility] [employer] PMSK / [id number] Pacemaker PACEMAKER Stent-06/24/2016 Implanted: 06/24/2016 (Quantity not on file) documented as of this encounter Results Not on filedocumented in this encounter Visit Diagnoses Diagnosis Chronic heart failure with preserved eje ction fraction - Primary documented in this encounter Insurance Payer Benefit Plan / Subscriber ID Effective Phone Address T e Group Dates [facility] [id number] 2017-Lux [phone] [address] [employer] Order[employer] [phone] [place] [address] documented as of this encounter Advance Directives Name Relationship Healthcare Agent Communication Relationship Keaton Nelson Spouse Primary healthcare agent Elisabeth Soliz Sibling First alternate healthcare agent (Mobile)
--- OUTSIDE RECORDS SUMMARY | 2019-11-07 22:14 | XMS REPORT | Summary of Care ---
:1970 Author Organization [facility] - [facility] Address [address] [place] [address] Care Team Providers Name Role Phone Elmer Andrade MD Primary Care Provider NAVJOT Espinoza Unavailable Unavailable MD Rocco Unavailable Mary Quezada MD Unavailable Genna Anand BANQUET MANAGER Unavailable Unavailable MD Casimiro Unavailable Ricardo Rodriguez DO [employer] St[employer]cher Reason for Visit Reason Comments LAB WORK Encounter Details Date Type Department Care Team Description 08/24/2019 Drafter Geological Visit ANCILLARY LABS Lincoln Griffiths MD [address] [place] [address] Chronic heart failure with preserved eje ction fraction; [facility] Other elevated white blood cell (WBC) co unt; Iron deficiency anemia, unspecified iron deficiency anemia type; Chronic diastol ic congestive heart failure; Stage 2 chronic kidney disease; Pulmonary embol ism, unspecified chronicity, unspecified pulmonary embolism type, unspecified whether acute cor pulmonale present Allergies Active Allergy Reactions Severity Noted Date [...] ORAL Take by mouth. 0 Acti ve nitroglycerin (NITROSTAT) Place 1 tablet under 1 [...] solutionIndications: area(s) 2 (two) Folliculitis times daily. ondansetron (ZOFRAN ODT) 4 Take 1 tablet by 14 tablet 0 2019 Active mg disintegrating mouth every 8 tabletIndications: (eight) hours as Hyperglycemia needed for Nausea and Vomiting (N/V). Insulin [place], Use as directed, 1x 100 Each 1 [...] Added automatically from request for lillian lawson [id number] Syncope 04/01/2017 Chest pain, rule out acute [...] Chest pain 06/12/2016 Coronary artery disease involving [place] coronary briseyda ry of [place] heart 06/12/2016 with angina pectoris OR (myocardial infarction) 06/12/2016 [...] Specialty Care Team Description 08/24/2019 Office Visit Cardiology Robert Adkins MD [address] [place], [place] [address] [phone] 08/27/2019 Office Visit Cardiology Practitioner, Heart Failure Nurse 08/27/2019 Nurse Visit Anti-coagulation Clinic Nurse, Vtc Antico ag 08/27/2019 Office Visit Gastroenterology Jorge Luis Mccarty MD [address] [place] [address] 012303 09/09/2019 Office Visit Psychiatry Mendez Martinez MD [address] [place], [place] [address]. [place] [address] 09/09/2019 Office Visit Internal Medicine Lilibeth Andrade MD [address] [place] [address] [phone] 10/12/2019 Office Visit Internal Medicine Lilibeth Andrade MD [address] [place] [address] 15 10/19/2019 Office Visit Endocrinology Diabetes & Tre Jones MD [address] [address] [phone] 10/27/2019 Office Visit Pulmonary Disease Max Aguiar MD [address] [place] [address] [phone] 11/02/2019 Office Visit Internal Medicine Lilibeth Andrade MD [address] [place] [address] [phone] 12/02/2019 Appointment Cardiac Electrophysiology Outpt-Simi, Pacemaker/Icd 12/02/2019 Office Visit Oncology Lincoln Griffiths MD [address] [place], [place] [address] [phone] 12/08/2019 Office Visit Ophthalmology Yariel Tineo MD [address] [place], [place] [address] [phone] 02/08/2020 Office Visit Cardiology Robert Adkins MD [address] [place], [place] [address] Name Type Priority Associated Diagnoses Date/Ti me BASIC METABOLIC PANEL LAB Routine Chronic heart failu re 08/24/2019 11:12 AM (23069)(NA, K, CL, CO2, with preserved ej ection AGRICULTURAL PILOT GLUCOSE, BUN, CREATININE, fraction CA) F5 LEIDEN AND F2 [id number] LAB Routine Other elevated w gayla 08/24/2019 11:12 AM MUTATIONS blood cell (WBC) count AGRICULTURAL PILOT Iron deficiency anemia, unspecified iron deficiency anemi a type Chronic diastolic congestive heart failure Stage 2 chronic kidney disease Pulmonary embolism, unspecified chronicity, unspecified pulmonary embolism type, unspecified whether acute cor pulmonale present PROTEIN C ANTIGEN LAB Routine Other elevated white 11:12 AM blood cell (WBC) count AGRICULTURAL PILOT Iron deficiency anemia, unspecified iron deficiency anemi a type Chronic diastolic congestive heart failure Stage 2 chronic kidney disease Pulmonary embolism, unspecified chronicity, unspecified pulmonary embolism type, unspecified whether acute cor pulmonale present PROTEIN C ACTIVITY LAB Routine Other elevated white 0 08/24/2019 11:12 AM blood cell (WBC) count AGRICULTURAL PILOT Iron deficiency anemia, unspecified iron deficiency anemi a type Chronic diastolic congestive heart failure Stage 2 chronic kidney disease Pulmonary embolism, unspecified chronicity, unspecified pulmonary embolism type, unspecified whether acute cor pulmonale present PROTEIN S ACTIVITY LAB Routine Other elevated white 0 08/24/2019 11:12 AM blood cell (WBC) count AGRICULTURAL PILOT Iron deficiency anemia, unspecified iron deficiency anemi a type Chronic diastolic congestive heart failure Stage 2 chronic kidney disease Pulmonary embolism, unspecified chronicity, unspecified pulmonary embolism type, unspecified whether acute cor pulmonale present ANTITHROMBIN ANTIGEN LAB Routine Other elevated whit e 08/24/2019 11:12 AM blood cell (WBC) count AGRICULTURAL PILOT Iron deficiency anemia, unspecified iron deficiency anemi a type Chronic diastolic congestive heart failure Stage 2 chronic kidney disease Pulmonary embolism, unspecified chronicity, unspecified pulmonary embolism type, unspecified whether acute cor pulmonale present ANTITHROMBIN ACTIVITY LAB Routine Other elevated whit e 08/24/2019 11:12 AM blood cell (WBC) count AGRICULTURAL PILOT Iron deficiency anemia, unspecified iron deficiency anemi a type Chronic diastolic congestive heart failure Stage 2 chronic kidney disease Pulmonary embolism, unspecified chronicity, unspecified pulmonary embolism type, unspecified whether acute cor pulmonale present FACTOR 2 [id number] MUTATION LAB Routine Other elevated white 08/24/2019 11:12 AM blood cell (WBC) count AGRICULTURAL PILOT Iron deficiency anemia, unspecified iron deficiency anemi a type Chronic diastolic congestive heart failure Stage 2 chronic kidney disease Pulmonary embolism, unspecified chronicity, unspecified pulmonary embolism type, unspecified whether acute cor pulmonale present FACTOR 5 LEIDEN LAB Routine Other elevated white 08/2019 11:12 AM blood cell (WBC) count AGRICULTURAL PILOT Iron deficiency anemia, unspecified iron deficiency anemi a type Chronic diastolic congestive heart failure Stage 2 chronic kidney disease Pulmonary embolism, unspecified chronicity, unspecified pulmonary embolism type, unspecified whether acute cor pulmonale present Health Maintenance Due Date Last Done Comments [...] of this encounter Implants Implanted Type Area Bee Raiser Device Shelf Model / Identifier Expiration Serial / Date Lot Prolene Mesh MESH Right: Ethicon 12/20/2020 PMSK / Implanted: Qty: 1 on 07/04/2016 by Alfonso Martinez MD at [facility] [employer] PMSK / [id number] Pacemaker PACEMAKER Stent-06/24/2016 Implanted: 06/24/2016 (Quantity not on file) documented as of this encounter Results Not on filedocumented in this encounter Visit Diagnoses Diagnosis Chronic heart failure with preserved eje ction fraction Other elevated white blood cell (WBC) co unt Iron deficiency anemia, unspecified iron deficiency anemia type Chronic diastolic congestive heart failu re Chronic diastolic heart failure Stage 2 chronic kidney disease Pulmonary embolism, unspecified chronici ty, unspecified pulmonary embolism type, unspecified whether acute cor pulmonale present documented in this encounter Insurance Payer Benefit Plan / Subscriber ID Effective Phone Address T ype Group Dates [facility] [id number] 2017-Lux [phone] [employer] HEALTH CHOICE [phone] [place] [address] (Home) [place] [address] documented as of this encounter Advance Directives Name Relationship Healthcare Agent Communication Relationship Keaton Nelson Spouse Primary healthcare agent Elisabeth Soliz Sibling First alternate healthcare agent (Mobile)
--- OUTSIDE RECORDS SUMMARY | 2019-11-07 22:15 | XMS REPORT | Summary of Care ---
:1970 Author Organization [facility] - [facility] Address [address] [place] [address] Care Team Providers Name Role Phone Elmer Andrade MD Primary Care Provider NAVJOT Espinoza Unavailable Unavailable MD Rocco Unavailable Mary Quezada MD Unavailable Genna Anand MAINSPRING BARREL ASSEMBLY CLEANER Unavailable Unavailable MD Casimiro Unavailable Ricardo Rodriguez DO Form Layer Reason for Visit Reason Comments LAB WORK Encounter Details Date Type Department Care Team Description 08/24/2019 Vegetable Inspector Visit ANCILLARY LABS Lincoln Griffiths MD [address] [place] [address] Chronic heart failure with preserved eje ction fraction; [facility] Other elevated white blood cell (WBC) co [...] needed for Nausea and Vomiting (N/V). Insulin [place], Use as directed, 1x 100 Each 1 [...] Added automatically from request for lillian lawson [id number] Syncope 04/01/2017 Chest pain, rule out acute [...] of saxman heart 06/12/2016 with angina pectoris [place] (myocardial infarction) 06/12/2016 [...] Adkins MD [address] [place], [place] [address] [phone] 08/27/2019 Office Visit Cardiology Practitioner, Heart Failure Nurse 08/27/2019 Nurse Visit Anti-coagulation Clinic Nurse, Vtc Antico ag 08/27/2019 Office Visit Gastroenterology Jorge Luis Mccarty MD [address] [place] [address] [phone] 09/09/2019 Office Visit Psychiatry Mendez Martinez MD [address] [place], [place] [address]d. [place] [phone] 09/09/2019 Office Visit Internal Medicine Lilibeth Andrade MD [address] [place] [address] 15 [phone] 10/12/2019 Office Visit Internal Medicine Lilibeth Andrade MD [address] [place] [address] 15 10/19/2019 Office Visit Endocrinology Diabetes & Tre Jones MD [address] [address] [phone] 10/27/2019 Office Visit Pulmonary Disease Max Aguiar MD [address] [place] [address] 77 15 [phone] 11/02/2019 Office Visit Internal Medicine Lilibeth Andrade MD [address] [place] [address] 77 15 [phone] 12/02/2019 Appointment Cardiac Electrophysiology Outpt-Simi, Pacemaker/Icd 12/02/2019 Office Visit Oncology Lincoln Griffiths MD [address] [place], [place] [address] [phone] 12/08/2019 Office Visit Ophthalmology Yariel Tineo MD [address] [place], [place] [address] [phone] 02/08/2020 Office Visit Cardiology Robert Adkins MD [address] [place], [place] [address] Name Type Priority Associated Diagnoses Date/Ti me F5 LEIDEN AND F2 [id number] LAB Routine Other elevated w gayla 08/24/2019 11:12 AM MUTATIONS blood cell (WBC) count DECK SUPERVISOR Iron deficiency anemia, unspecified iron deficiency anemi a type Chronic diastolic congestive heart failure Stage 2 chronic kidney disease Pulmonary embolism, unspecified chronicity, unspecified pulmonary embolism type, unspecified whether acute cor pulmonale present PROTEIN C ANTIGEN LAB Routine Other elevated white 11:12 AM blood cell (WBC) count DECK SUPERVISOR Iron deficiency anemia, unspecified iron deficiency anemi a type Chronic diastolic congestive heart failure Stage 2 chronic kidney disease Pulmonary embolism, unspecified chronicity, unspecified pulmonary embolism type, unspecified whether acute cor pulmonale present PROTEIN C ACTIVITY LAB Routine Other elevated white 0 08/24/2019 11:12 AM blood cell (WBC) count DECK SUPERVISOR Iron deficiency anemia, unspecified iron deficiency anemi a type Chronic diastolic congestive heart failure Stage 2 chronic kidney disease Pulmonary embolism, unspecified chronicity, unspecified pulmonary embolism type, unspecified whether acute cor pulmonale present PROTEIN S ACTIVITY LAB Routine Other elevated white 0 08/24/2019 11:12 AM blood cell (WBC) count DECK SUPERVISOR Iron deficiency anemia, unspecified iron deficiency anemi a type Chronic diastolic congestive heart failure Stage 2 chronic kidney disease Pulmonary embolism, unspecified chronicity, unspecified pulmonary embolism type, unspecified whether acute cor pulmonale present ANTITHROMBIN ANTIGEN LAB Routine Other elevated whit e 08/24/2019 11:12 AM blood cell (WBC) count DECK SUPERVISOR Iron deficiency anemia, unspecified iron deficiency anemi a type Chronic diastolic congestive heart failure Stage 2 chronic kidney disease Pulmonary embolism, unspecified chronicity, unspecified pulmonary embolism type, unspecified whether acute cor pulmonale present ANTITHROMBIN ACTIVITY LAB Routine Other elevated whit e 08/24/2019 11:12 AM blood cell (WBC) count DECK SUPERVISOR Iron deficiency anemia, unspecified iron deficiency anemi a type Chronic diastolic congestive heart failure Stage 2 chronic kidney disease Pulmonary embolism, unspecified chronicity, unspecified pulmonary embolism type, unspecified whether acute cor pulmonale present FACTOR 2 [id number] MUTATION LAB Routine Other elevated white 08/24/2019 11:12 AM blood cell (WBC) count DECK SUPERVISOR Iron deficiency anemia, unspecified iron deficiency anemi a type Chronic diastolic congestive heart failure Stage 2 chronic kidney disease Pulmonary embolism, unspecified chronicity, unspecified pulmonary embolism type, unspecified whether acute cor pulmonale present FACTOR 5 LEIDEN LAB Routine Other elevated white 08/2019 11:12 AM blood cell (WBC) count DECK SUPERVISOR Iron deficiency anemia, unspecified iron deficiency anemi [...] of this encounter Implants Implanted Type Area Litigation Partner Device Shelf Model / Identifier Expiration Serial / Date Lot Prolene Mesh MESH Right: Ethicon 12/20/2020 PMSK / Implanted: Qty: 1 on 07/04/2016 by Alfonso Martinez MD at [facility] [employer] PMSK / [id number] Pacemaker PACEMAKER Stent-06/24/2016 Implanted: 06/24/2016 (Quantity not on file) documented as of this encounter Procedures Procedure Name Priority Date/Time Associated Diagnosis Comme nts BASIC METABOLIC Routine 08/24/2019 11:12 AM Chronic heart Resu lts for this PANEL (NA, K, CL, DECK SUPERVISOR failure with procedure are in CO2, GLUCOSE, BUN, preserved ejection the results CREATININE, CA) fraction section. documented in this encounter Results BASIC METABOLIC PANEL (72248)(NA, K, CL, CO2, GLUCOSE, BUN, CREATININE, CA) (08/24/2019 11:12 AM DECK SUPERVISOR) NA 138 135 - 145 [facility] mmol/L SERVICES K 2.9 (LL) 3.5 - 5.0 [facility] mmol/L SERVICES CL 89 (L) 98 - 108 mmol/L [facility] CO2 TOTAL 36 (H) 23 - 31 mmol/L [facility] AGAP 13 2 - 16 [facility] BUN 18 7 - 23 mg/dL [facility] GLUCOSE 223 (H) 70 - 110 mg/dL [facility] CREATININE 1.13 0.60 - 1.25 [facility] mg/dL SERVICES CALCIUM 9.7 8.6 - 10.6 [facility] mg/dL SERVICES eGFR Calculation 68.7 mL/min/1.73m2 [facility] (Non- SERVICES [place]) eGFR Calculation 83.3 mL/min/1.73m2 [facility] () SERVICES Specimen Blood - ARM, LEFT Narrative Performed At Association of Glomerular Filtration Rate (GFR) and St aging [facility] of Kidney Disease* + + +------- ------ + | GFR (mL/min/1.73 m2) | With Kidney Damage | Wi thout Kidney Damage + + +------- ------ + | >90 | Stage one | Normal + + +------- ------ + | 60-89 | Stage two | Decreased GFR + + +------- ------ + | 30-59 | Stage three | Stage three + + +------- ------ + | 15-29 | Stage four | Stage four + + +------- ------ + | <15 (or dialysis) | Stage five | Stage five + + +------- ------ + *Each stage assumes the associated GFR level has been in effect for at least three months. Stages 1 to 5, wit h or without kidney disease, indicate chronic kidney disease. Notes: Determination of stages one and two (with eGFR >59mL/min/1.73 m2) requires estimation of kidney damag e for at least three months as defined by structural or func tional abnormalities of the kidney, manifested by either: Pathological abnormalities or Markers of kidney damage (including abnormalities in the composition of the blo od or urine or abnormalities in imaging tests) . Performing Organization Address City/State/Zipcode Phone Number [facility] CLIA: [id number], [address] [place], [place] [address] [facility] documented in this encounter Visit Diagnoses Diagnosis Chronic [...] Effective Phone Address T ype Group Dates [facility] [id number] 2017-Lux [phone] [address] HMO HEALTH [employer] [facility] [id number] [place] [address] documented as of this encounter Advance Directives Name Relationship Healthcare Agent Communication Relationship Keaton Nelson Spouse Primary healthcare agent Elisabeth Soliz Sibling First alternate healthcare agent (Mobile)
--- OUTSIDE RECORDS SUMMARY | 2019-11-07 22:16 | XMS REPORT | Summary of Care ---
:1970 Author Organization [facility] - [facility] Address [address] [place] [address] Care Team Providers Name Role Phone Elmer Andrade MD Primary Care Provider NAVJOT Espinoza Unavailable Unavailable MD Rocco Unavailable Mary Quezada MD Unavailable Genna Anand BASKET PERSON Unavailable Unavailable MD Casimiro Unavailable Ricardo Rodriguez DO Dust Mop Maker Reason for Visit Reason Comments LAB WORK Encounter Details Date Type Department Care Team Description 08/24/2019 [place] Gold Attendant Visit ANCILLARY LABS Lincoln Griffiths MD [address] [place] [address] Chronic heart failure with preserved eje ction fraction; [facility] Other elevated white blood cell (WBC) [...] needed for Nausea and Vomiting (N/V). Insulin [place], Use as directed, 1x 100 Each 1 [...] Added automatically from request for lillian lawson [id number] Syncope 04/01/2017 Chest pain, rule out acute [...] Chest pain 06/12/2016 Coronary artery disease involving [place] coronary briseyda ry of [place] heart 06/12/2016 with angina pectoris [place] (myocardial infarction) 06/12/2016 Type 2 diabetes mellitus [...] Adkins MD [address] [place], [place] [address] [phone] 08/27/2019 Office Visit Cardiology Practitioner, Heart Failure Nurse 08/27/2019 Nurse Visit Anti-coagulation Clinic Nurse, Vtc Antico ag 08/27/2019 Office Visit Gastroenterology Jorge Luis Mccarty MD [address] [place] [address] 118493 09/09/2019 Office Visit Psychiatry Mendez Martinez MD [address] [place], [place] [address] [place] [phone] 09/09/2019 Office Visit Internal Medicine Lilibeth Andrade MD [address] [place] [address] 15 [phone] 10/12/2019 Office Visit Internal Medicine Lilibeth Andrade MD [address] [place] [address] 15 10/19/2019 Office Visit Endocrinology Diabetes & Tre Jones MD [address] [address] [phone] 10/27/2019 Office Visit Pulmonary Disease Max Aguiar MD [address] [place] [address] 15 [phone] 11/02/2019 Office Visit Internal Medicine Lilibeth Andrade MD [address] [place] [address] 15 [phone] 12/02/2019 Appointment Cardiac Electrophysiology Outpt-Simi, Pacemaker/Icd 12/02/2019 Office Visit Oncology Lincoln Griffiths MD [address] [place], [place] [address] [phone] 12/08/2019 Office Visit Ophthalmology Yariel Tineo MD [address] [place], [place] [address] [phone] 02/08/2020 Office Visit Cardiology Robert Adkins MD [address] [place], [place] [address] Name Type Priority Associated Diagnoses Date/Ti me F5 LEIDEN AND F2 [id number] LAB Routine Other elevated w gayla 08/24/2019 11:12 AM MUTATIONS blood cell (WBC) count DIRECTOR OF VITAL STATISTICS Iron deficiency anemia, unspecified iron deficiency anemi a type Chronic diastolic congestive heart failure Stage 2 chronic kidney disease Pulmonary embolism, unspecified chronicity, unspecified pulmonary embolism type, unspecified whether acute cor pulmonale present PROTEIN C ANTIGEN LAB Routine Other elevated white 11:12 AM blood cell (WBC) count DIRECTOR OF VITAL STATISTICS Iron deficiency anemia, unspecified iron deficiency anemi a type Chronic diastolic congestive heart failure Stage 2 chronic kidney disease Pulmonary embolism, unspecified chronicity, unspecified pulmonary embolism type, unspecified whether acute cor pulmonale present PROTEIN C ACTIVITY LAB Routine Other elevated white 0 08/24/2019 11:12 AM blood cell (WBC) count DIRECTOR OF VITAL STATISTICS Iron deficiency anemia, unspecified iron deficiency anemi a type Chronic diastolic congestive heart failure Stage 2 chronic kidney disease Pulmonary embolism, unspecified chronicity, unspecified pulmonary embolism type, unspecified whether acute cor pulmonale present PROTEIN S ACTIVITY LAB Routine Other elevated white 0 08/24/2019 11:12 AM blood cell (WBC) count DIRECTOR OF VITAL STATISTICS Iron deficiency anemia, unspecified iron deficiency anemi a type Chronic diastolic congestive heart failure Stage 2 chronic kidney disease Pulmonary embolism, unspecified chronicity, unspecified pulmonary embolism type, unspecified whether acute cor pulmonale present ANTITHROMBIN ANTIGEN LAB Routine Other elevated whit e 08/24/2019 11:12 AM blood cell (WBC) count DIRECTOR OF VITAL STATISTICS Iron deficiency anemia, unspecified iron deficiency anemi a type Chronic diastolic congestive heart failure Stage 2 chronic kidney disease Pulmonary embolism, unspecified chronicity, unspecified pulmonary embolism type, unspecified whether acute cor pulmonale present ANTITHROMBIN ACTIVITY LAB Routine Other elevated whit e 08/24/2019 11:12 AM blood cell (WBC) count DIRECTOR OF VITAL STATISTICS Iron deficiency anemia, unspecified iron deficiency anemi a type Chronic diastolic congestive heart failure Stage 2 chronic kidney disease Pulmonary embolism, unspecified chronicity, unspecified pulmonary embolism type, unspecified whether acute cor pulmonale present FACTOR 2 [id number] MUTATION LAB Routine Other elevated white 08/24/2019 11:12 AM blood cell (WBC) count DIRECTOR OF VITAL STATISTICS Iron deficiency anemia, unspecified iron deficiency anemi a type Chronic diastolic congestive heart failure Stage 2 chronic kidney disease Pulmonary embolism, unspecified chronicity, unspecified pulmonary embolism type, unspecified whether acute cor pulmonale present FACTOR 5 LEIDEN LAB Routine Other elevated white 08/2019 11:12 AM blood cell (WBC) count DIRECTOR OF VITAL STATISTICS Iron deficiency anemia, unspecified iron deficiency anemi [...] of this encounter Implants Implanted Type Area Desktop Support Engineer Device Shelf Model / Identifier Expiration Serial / Date Lot Prolene Mesh MESH Right: Ethicon 12/20/2020 PMSK / Implanted: Qty: 1 on 07/04/2016 by Alfonso Martinez MD at [facility] [employer] PMSK / [id number] Pacemaker PACEMAKER Stent-06/24/2016 Implanted: 06/24/2016 (Quantity not on file) documented as of this encounter Procedures Procedure Name Priority Date/Time Associated Diagnosis Comme nts BASIC METABOLIC Routine 08/24/2019 11:12 AM Chronic heart Resu lts for this PANEL (NA, K, CL, DIRECTOR OF VITAL STATISTICS failure with procedure are in CO2, GLUCOSE, BUN, preserved ejection the results CREATININE, CA) fraction section. documented in this encounter Results BASIC METABOLIC PANEL (99773)(NA, K, CL, CO2, GLUCOSE, BUN, CREATININE, CA) (08/24/2019 11:12 AM DIRECTOR OF VITAL STATISTICS) NA 138 135 - 145 [facility] mmol/L SERVICES K 2.9 (LL) 3.5 - 5.0 [facility] mmol/L SERVICES CL 89 (L) 98 - 108 mmol/L [facility] SERVICES CO2 TOTAL 36 (H) 23 - 31 mmol/L [facility] SERVICES AGAP 13 2 - 16 [facility] BUN 18 7 - 23 mg/dL [facility] GLUCOSE 223 (H) 70 - 110 mg/dL [facility] CREATININE 1.13 0.60 - 1.25 [facility] mg/dL SERVICES CALCIUM 9.7 8.6 - 10.6 [facility] mg/dL SERVICES eGFR Calculation 68.7 mL/min/1.73m2 [facility] (Non- SERVICES [place] Citizen) eGFR Calculation 83.3 mL/min/1.73m2 [facility] () SERVICES Specimen Blood - ARM, LEFT Narrative Performed At Association of Glomerular Filtration Rate (GFR) and St aging [facility] of Kidney Disease* [...] . Performing Organization Address City/State/Zipcode Phone Number [facility] CLIA: [id number], [address] [place], [place] [address] [facility] documented in this encounter Visit Diagnoses Diagnosis [...] Phone Address T ype Group Dates [facility] [id number] 2017-Lux [phone] [address] [facility]MO HEALTH [employer] [facility] 86 [phone] [place] [address] documented as of this encounter Advance Directives Name Relationship Healthcare Agent Communication Relationship Keaton Nelson Spouse Primary healthcare agent Elisabeth Soliz Sibling First alternate healthcare [phone] agent (Mobile)
--- OUTSIDE RECORDS SUMMARY | 2019-11-07 22:17 | XMS REPORT | Summary of Care ---
:1970 Author Organization [facility] Address [address] [place] [address] Care Team Providers Name Role Phone Elmer Andrade MD Primary Care Provider NAVJOT Espinoza Unavailable Unavailable MD Rocco Unavailable Mary Quezada MD Unavailable Genna Anand Unavailable Unavailable MD Casimiro Unavailable Ricardo Rodriguez DO Library Circulation Clerk Reason for Visit Reason Comments Orders Encounter Details Date Type Department Care Team Description 08/24/[address] [facility] CardiologyAbbe Khaled, MD Orders [address] [address] [address] [place] [address] [phone] Allergies Active Allergy Reactions Severity Noted Date [...] needed for Nausea and Vomiting (N/V). Insulin [place], Use as directed, 1x 100 Each 1 [...] Added automatically from request for lillian lawson [id number] Syncope 04/01/2017 Chest pain, rule out acute [...] Chest pain 06/12/2016 Coronary artery disease involving [place] coronary briseyda ry of [place] heart 06/12/2016 with angina pectoris [place] (myocardial infarction) 06/12/2016 Type 2 diabetes mellitus [...] Adkins MD [address] [place], [place] [address] [phone] 08/27/2019 Office Visit Cardiology Practitioner, Heart Failure Nurse 08/27/2019 Nurse Visit Anti-coagulation Clinic Nurse, Vtc Antico ag 08/27/2019 Office Visit Gastroenterology Jorge Luis Mccarty MD [facility] [place] [address] [phone] 09/09/2019 Office Visit Psychiatry Mendez Martinez MD [address] [place], [place] [address]. [place] [phone] 09/09/2019 Office Visit Internal Medicine Lilibeth Andrade MD [address] [place] [address] 15 [phone] 10/12/2019 Office Visit Internal Medicine Lilibeth Andrade MD [address] [place] [address] 15 [phone] 10/19/2019 Office Visit Endocrinology Diabetes & JonesTre MD [address] [place] [address] [phone] 10/27/2019 Office Visit Pulmonary Disease Max Aguiar MD [address] [place] [address] 15 [phone] 11/02/2019 Office Visit Internal Medicine Lilibeth Andrade MD [address] [place] [address] 15 [phone] 12/02/2019 Appointment Cardiac Electrophysiology Outpt-Simi, Pacemaker/Icd 12/02/2019 Office Visit Oncology Lincoln Griffiths MD [address] [place], [place] [address] [phone] 12/08/2019 Office Visit Ophthalmology Yariel Tineo MD [address] [place], [place] [address] 02/08/2020 Office Visit Cardiology Robert Adkins MD [address] [place], [place] [address] Name Type Priority Associated Diagnoses Order S chedule MAGNESIUM LAB Add-on Chronic heart failure with E xpected: 08/24/2019, preserved ejection fraction Expires: 08/23/2020 Health Maintenance Due Date Last Done Comments [...] of this encounter Implants Implanted Type Area Coin Machine Supervisor Device Shelf Model / Identifier Expiration Serial / Date Lot Prolene Mesh MESH Right: Ethicon 12/20/2020 PMSK / Implanted: Qty: 1 on 07/04/2016 by Alfonso Martinez MD at [facility] [employer] PMSK / [id number] Pacemaker PACEMAKER Stent-06/24/2016 Implanted: 06/24/2016 (Quantity not on file) documented as of this encounter Results Not on filedocumented in this encounter Visit Diagnoses Diagnosis Chronic heart failure with preserved eje ction fraction - Primary documented in this encounter Insurance Payer Benefit Plan / Subscriber ID Effective Phone Address T e Group Dates [facility] [id number] 2017-Lux [phone] [employer] [facility] [employer] [facility] [phone] [place] [address] documented as of this encounter Advance Directives Name Relationship Healthcare Agent Communication Relationship Keaton Nelson Spouse Primary healthcare agent Elisabeth Soliz Sibling First [facility] healthcare [phone] agent (Mobile)
--- OUTSIDE RECORDS SUMMARY | 2019-11-07 22:18 | XMS REPORT | Summary of Care ---
:1970 Author Organization [facility] - [facility] Address [address] [place] [id number] Care Team Providers Name Role Phone Elmer Andrade MD Primary Care Provider NAVJOT Espinoza Unavailable Unavailable MD Rocco Unavailable Mary Quezada MD Unavailable Genna Anand OPERATING SYSTEMS SPECIALIST Unavailable Unavailable MD Casimiro Unavailable Ricardo Rodriguez DO Gold Stamper Reason for Visit Reason Comments LAB WORK Encounter Details Date Type Department Care Team Description 08/24/2019 Eyeglass Lens Grinder Visit ANCILLARY LABS Lincoln Griffiths MD [address] [place] [address] Chronic heart failure with preserved eje ction fraction; [facility] Other elevated white blood cell (WBC) co [...] needed for Nausea and Vomiting (N/V). Insulin [place], Use as directed, 1x 100 Each 1 [...] Added automatically from request for lillian lawson [id number] Syncope 04/01/2017 Chest pain, rule out acute [...] Chest pain 06/12/2016 Coronary artery disease involving [place] coronary briseyda ry of [place] heart 06/12/2016 with angina pectoris [place] (myocardial [...] Treatment Date Type Specialty Care Team Description 08/27/2019 Office Visit Cardiology Practitioner, Heart Failure Nurse 08/27/2019 Nurse Visit Anti-coagulation Clinic Nurse, Vtc Antico ag 08/27/2019 Office Visit Gastroenterology Jorge Luis Mccarty MD [facility] [place] [address] [phone] 09/09/2019 Office Visit Psychiatry Mendez Martinez MD [address] [place] [address] [phone] 09/09/2019 Office Visit Internal Medicine Lilibeth Andrade MD [address] [place] [address] 77 15 [phone] 10/12/2019 Office Visit Internal Medicine Lilibeth Andrade MD [address] [place] [address] 77 15 [phone] 10/19/2019 Office Visit Endocrinology Diabetes & Jones, Tre rodriguez MD [address] [address] [phone] 10/27/2019 Office Visit Pulmonary Disease Max Aguiar MD [address] [place] [address] 77 15 [phone] 11/02/2019 Office Visit Internal Medicine Lilibeth Andrade MD [address] [place] [address] 77 15 [phone] 12/02/2019 Appointment Cardiac Electrophysiology Outpt-Simi, Pacemaker/Icd 12/02/2019 Office Visit Oncology Lincoln Griffiths MD [facility] [place], [place] [address] [phone] 12/08/2019 Office Visit Ophthalmology Yariel Tineo MD [address] [place], [place] [address] 02/08/2020 Office Visit Cardiology Robert Adkins MD [address] [place], [place] [address] Name Type Priority Associated Diagnoses Date/Ti me PROTEIN C ANTIGEN LAB Routine Other elevated white bl ood 08/24/2019 11:12 AM LEAD SUPPLY WORKER cell (WBC) count Iron deficiency anemia, unspecified iron deficiency anemi a type Chronic diastolic congestive heart failure Stage 2 chronic kidney disease Pulmonary embolism, unspecified chronicity, unspecified pulmonary embolism type, unspecified whether acute cor pulmonale present PROTEIN C ACTIVITY LAB Routine Other elevated white b lood 08/24/2019 11:12 AM LEAD SUPPLY WORKER cell (WBC) count Iron deficiency anemia, unspecified iron deficiency anemi a type Chronic diastolic congestive heart failure Stage 2 chronic kidney disease Pulmonary embolism, unspecified chronicity, unspecified pulmonary embolism type, unspecified whether acute cor pulmonale present PROTEIN S ACTIVITY LAB Routine Other elevated white b lood 08/24/2019 11:12 AM LEAD SUPPLY WORKER cell (WBC) count Iron deficiency anemia, unspecified iron deficiency anemi a type Chronic diastolic congestive heart failure Stage 2 chronic kidney disease Pulmonary embolism, unspecified chronicity, unspecified pulmonary embolism type, unspecified whether acute cor pulmonale present ANTITHROMBIN ANTIGEN LAB Routine Other elevated whit e blood 08/24/2019 11:12 AM LEAD SUPPLY WORKER cell (WBC) count Iron deficiency anemia, unspecified iron deficiency anemi a type Chronic diastolic congestive heart failure Stage 2 chronic kidney disease Pulmonary embolism, unspecified chronicity, unspecified pulmonary embolism type, unspecified whether acute cor pulmonale present ANTITHROMBIN ACTIVITY LAB Routine Other elevated whit e blood 08/24/2019 11:12 AM LEAD SUPPLY WORKER cell (WBC) count Iron deficiency anemia, unspecified iron deficiency anemi [...] of this encounter Implants Implanted Type Area Tobacco Checkout Clerk Device Shelf Model / Identifier Expiration Serial / Date Lot Prolene Mesh MESH Right: Ethicon 12/20/2020 PMSK / Implanted: Qty: 1 on 07/04/2016 by Alfonso Martinez MD at [facility] [employer] PMSK / [id number] Pacemaker PACEMAKER Stent-06/24/2016 Implanted: 06/24/2016 (Quantity not on file) documented as of this encounter Procedures Procedure Name Priority Date/Time Associated Diagnosis Comme nts FACTOR 2 [id number] Routine 08/24/2019 11:12 AM Other elevated wh ite Results for this MUTATION LEAD SUPPLY WORKER blood cell (WBC) procedure a re in count the results Iron deficiency section. anemia, unspecified iron deficiency anemia type Chronic diastolic congestive heart failure Stage 2 chronic kidney disease Pulmonary embolism, unspecified chronicity, unspecified pulmonary embolism type, unspecified whether acute cor pulmonale present FACTOR 2 [id number] Routine 08/24/2019 11:12 AM Other elevated wh ite Results for this MUTATION LEAD SUPPLY WORKER blood cell (WBC) procedure a re in count the results Iron deficiency section. anemia, unspecified iron deficiency anemia type Chronic diastolic congestive heart failure Stage 2 chronic kidney disease Pulmonary embolism, unspecified chronicity, unspecified pulmonary embolism type, unspecified whether acute cor pulmonale present FACTOR 5 LEIDEN Routine 08/24/2019 11:12 AM Other elevated i te Results for this LEAD SUPPLY WORKER blood cell (WBC) procedure a re in count the results Iron deficiency section. anemia, unspecified iron deficiency anemia type Chronic diastolic congestive heart failure Stage 2 chronic kidney disease Pulmonary embolism, unspecified chronicity, unspecified pulmonary embolism type, unspecified whether acute cor pulmonale present BASIC METABOLIC Routine 08/24/2019 11:12 AM Chronic heart Resu lts for this PANEL (NA, K, CL, LEAD SUPPLY WORKER failure with procedure are in CO2, GLUCOSE, BUN, preserved ejection the results CREATININE, CA) fraction section. MAGNESIUM Add-on 08/24/2019 11:12 AM Chronic heart Results for this LEAD SUPPLY WORKER failure with procedure are i n preserved ejection the resul ts fraction section. documented in this encounter Results MAGNESIUM (08/24/2019 11:12 AM LEAD SUPPLY WORKER) Pathologist Sig diogenes MAGNESIUM 1.9 1.7 - 2.4 mg/dL [facility] Specimen Blood - ARM, LEFT Performing Organization Address City/State/Zipcode Phone Number [facility] CLIA: [id number], [address] [place] [address] [facility] FACTOR 5 LEIDEN (08/24/2019 11:12 AM LEAD SUPPLY WORKER) Pathologist Sig diogenes FACTOR 5 LEIDEN Normal Normal [facility] Specimen Blood - ARM, LEFT Narrative Performed At Phenotype Characteristics: 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 Incidence: Between 3 and 8 percent of people with Euro pean ancestry are heterozygous and about 1 in 5000 individu als are homozygous with two copies of the mutation. The mu tation is less common in other population. Inheritance: Autosomal dominant. Penetrance: Lifetime risk of thrombosis is 10 percent for heterozygotes and 80 percent for homozyg otes. 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 Note: Standardized nomenclature for the Factor 5 Leide n mutation is c.1601G>A (p.[id number]). Methodology: Polymerase chain reaction and fluorescenc e monitoring. Limitations: Rare Factor V mutations (R0954P, O9742M, and N9782V) and any additional SNPs in the probe binding r egion may interfere with the target detection and yield an I NVALID result. The performance of this assay has not been bret luated with samples from pediatric patients. Counseling and informed consent are recommended for ge netic testing. References: OMIM: [id number] https://ghr.nlm.nih.gov/condition/lhvwxa-y-teoqwl-thro mbophi abby Performing Organization Address City/State/Zipcode Phone Number [facility] CLIA: [id number], [address] [place] [phone] [facility] FACTOR 2 [id number] MUTATION (08/24/2019 11:12 AM LEAD SUPPLY WORKER) Pathologist Sig nature Factor 2 [id number] Normal Normal [facility] Mutation SERVICES Specimen Blood - ARM, LEFT Narrative Performed At Phenotype Characteristics: Thrombophilia due to produc tion [facility] of too much coagulation factor 2 (F2, also called prothrombin). Incidence: Approximately 2-5 percent of Caucasians and 0.3 percent of Americans are heterozygous; about 1 in 10,000 individuals are homozygous with two copies of t he mutation. Inheritance: Autosomal dominant. Penetrance: The risk of thrombosis is increased 2-4 fo ld for heterozygotes and further increased for homozygotes. Mutation Tested: F2 c.31861Y>A ([id number]) . Clinical Sensitivity for Venous Thrombosis: Approximat jojo 10%. Methodology: Polymerase chain reaction and fluorescenc e monitoring Limitations: The performance of this assay has not bee n evaluated with samples from pediatric pa tients. Counseling and informed consent are recommended for ge netic testing. References: OMIM: [id number] https://ghr.nlm.nih.gov/condition/prothr ombin-thrombophilia Performing Organization Address City/[facility]/Zipcode Phone Number [facility] CLIA: [id number], [address] [place] [phone] [facility] BASIC METABOLIC PANEL (43310)(NA, K, CL, CO2, GLUCOSE, BUN, CREATININE, CA) (08/24/2019 11:12 AM LEAD SUPPLY WORKER) NA 138 135 - 145 [facility] mmol/L SERVICES K 2.9 (LL) 3.5 - 5.0 [facility] mmol/L SERVICES CL 89 (L) 98 - 108 mmol/L [facility] CO2 TOTAL 36 (H) 23 - 31 mmol/L [facility] AGAP 13 2 - 16 [facility] BUN 18 7 - 23 mg/dL [facility] GLUCOSE 223 (H) 70 - 110 mg/dL [facility] CREATININE 1.13 0.60 - 1.25 [facility] mg/dL SERVICES CALCIUM 9.7 8.6 - 10.6 [facility] mg/dL SERVICES eGFR Calculation 68.7 mL/min/1.73m2 [facility] (Non- SERVICES Bhutanese) eGFR Calculation 83.3 mL/min/1.73m2 [facility] () SERVICES Specimen Blood - ARM, LEFT Narrative Performed At Association of Glomerular Filtration Rate (GFR) and St aging [facility] of Kidney Disease* + + [...] . Performing Organization Address City/State/Zipcode Phone Number [facility] CLIA: [id number], [address] [place], [place] [address] [facility] documented in this encounter Visit Diagnoses Diagnosis [...] / Subscriber ID Effective Phone Address [employer] Dates HIM [facility] [id number] 2017-Lux [phone] [address] [facility] [employer] [phone] [place] [address] (Home) [place] [address] documented as of this encounter Advance Directives Name Relationship Healthcare Agent Communication Relationship Keaton Leslie Spouse Primary healthcare agent Elisabeth Soliz Sibling [employer] [place] [id number] agent (Mobile)
--- OUTSIDE RECORDS SUMMARY | 2019-11-07 22:20 | XMS REPORT | Summary of Care ---
:1970 Author Organization [facility] - [facility] [place] Address [address] [place] [id number] Care Team Providers Name Role Phone Elmer Andrade MD Primary Care Provider NAVJOT Espinoza Unavailable Unavailable MD Rocco Unavailable Mary Quezada MD Unavailable Genna Anand ETL INFORMATICA DEVELOPER Unavailable Unavailable MD Casimiro Unavailable Ricardo Rodriguez DO Health Services Rn Reason for Visit Reason Comments LAB WORK Encounter Details Date Type Department Care Team Description 08/24/2019 Driver License Technician Visit ANCILLARY LABS Lincoln Griffiths MD [address] [place] [address] Chronic heart failure with preserved eje ction fraction; [facility] Other elevated white blood cell [...] as of this encounter (statuses as of 08/25/2019) Medications Medication Sig Dispensed Refills Start Date End Date Status docusate 100 mg Take 1 capsule 30 capsule 0 07/04/2016 Suspended capsule by mouth 2 (two) times daily as needed for Constipation. Additional information Patient taking differently: 100 mg Oral DAILY, Reported on 07/15/2016 3:40 PM Diclofenac Sodium 1 % Take 2-4 grams three 100 g 3 018 Suspended gelIndications: Chronic back times a day as needed pain greater than 3 months for pain duration Additional information pyridoxine HCl, vitamin B6, Take by mouth. 0 Suspended (VITAMIN B-6 ORAL) magnesium oxide 400 mg Take 1 tablet by mouth 90 tablet 3 08/2017 Suspended magnesium TabIndications: daily. Low magnesium level Additional information Patient taking differently: 2 tablet Oral DAILY, Reported on 06/02/2018 2:38 PM foLIC acid 1 mg Take 1 tablet by 90 tablet 3 05/27/2018 Suspended tabletIndications: High plasma mouth daily. homocystine Additional information methocarbamol 750 mg tablet Take 750 mg by mouth 0 Suspended 2 (two) times daily. buprenorphine-naloxone Place 8 mg under the 0 Suspended (SUBOXONE) 8-2 mg sublingual tongue every 12 film (twelve) hours as needed for Pain (scale 7-10). clopidogrel (PLAVIX) 75 mg Take 1 tablet by 90 tablet 3 2018 Suspended tablet mouth daily. Additional information atorvastatin (LIPITOR) 40 Take 1 tablet by mouth 90 tablet 3 0 10/13/2018 Suspended mg tablet at bedtime. Additional information furosemide (LASIX) 80 mg Take 80 mg by mouth 0 Suspended tablet every morning and evening. warfarin 10 mg tablet Take as directed by 60 tablet 3 10/31/19 19 Suspended [facility] based on INR results. Additional information warfarin 7.5 mg tablet Take as directed by 90 tablet 3 019 Suspended [facility] based on INR results. Additional information ferrous sulfate (IRON) 325 mg Take 1 tablet by 270 tablet 3 Suspended (65 mg iron) mouth 3 (three) tabletIndications: Iron times daily with deficiency anemia due to meals. chronic blood loss Additional information Cholecalciferol, Vitamin D3, Take by mouth. 0 Suspended (VITAMIN D3) 2,000 unit tablet polyethylene glycol (MIRALAX) 17 Take 17 g by mouth 238 g 3 01/26/2019 Suspended gram/dose powderIndications: daily. Constipation, unspecified constipation type Additional information allopurinol 300 mg Take 1 tablet by 90 tablet 3 02/23/2019 Suspended tabletIndications: Uric acid mouth daily. stone in urine Additional information metformin ER 500 mg 24 hr Take 1 tablet by 90 tablet 3 019 Suspended tabletIndications: Type 2 mouth daily with diabetes mellitus with breakfast. cardiac complication Additional information dulaglutide (TRULICITY) 0.75 inject 0.75 mg under 4 Syringe 4 02/24/2019 Suspended mg/0.5 mL PnIjIndications: the skin weekly. Type 2 diabetes mellitus with cardiac complication Additional information Ranolazine 1,000 mg tablet Take 1 tablet by mouth 60 tablet 4 05/07/2019 Suspended 2 (two) times daily. Additional information ZINC ORAL Take by mouth every 0 Suspended other day. nitroglycerin (NITROSTAT) 0.4 Place 1 tablet under 1 Bottle 1 05/18/2019 Suspended mg sublingual tablet the tongue every 5 (five) minutes as needed for Chest pain. Additional information hydrocortisone 2.5 % Apply to affected 454 g 11 06/01/2019 Suspended creamIndications: Seborrheic area(s) 2 (two) times dermatitis daily. If Insurance does not cover the jar then give tubes of cream. Additional information PROMETHAZINE 25 mg TAKE 1 TABLET BY 30 tablet 11 06/06/2019 Suspended tabletIndications: MOUTH EVERY SIX Non-intractable vomiting with HOURS NEEDED FOR nausea, unspecified vomiting NAUSEA OR VOMITING type Additional information testosterone (ANDROGEL) 20.25 Apply 2 Pumps to 75 g 3 04/2019 Suspended mg/1.25 gram (1.62 %) gel area(s) daily. pumpIndications: Low testosterone Additional information cyanocobalamin (VITAMIN B-12) 1 mL by Intramuscular 12 mL 3 06/18/2019 Suspended 1,000 mcg/mL route every 2 (two) injectionIndications: Vitamin weeks. B12 deficiency Additional information clindamycin 1 % Apply to affected 60 mL 6 06/11/2019 Suspended solutionIndications: Folliculitis area(s) 2 (two) times daily. Additional information ondansetron (ZOFRAN ODT) 4 mg Take 1 tablet by 14 tablet 0 06/2019 Suspended disintegrating mouth every 8 tabletIndications: (eight) hours as Hyperglycemia needed for Nausea and Vomiting (N/V). Additional information Insulin [place], Use as directed, 1x 100 Each 1 06/25/2019 Suspended Disposable, (RELION PEN daily, DX:E11.9 NEEDLES) 32 gauge x 5/32" Ndle Additional information Insulin Glargine (LANTUS inject 12-14 Units 3 mL 0 2019 Suspended SOLOSTAR U-100 INSULIN) 100 under the skin daily. unit/mL (3 mL) injection ARIPiprazole 15 mg Take 1 tablet by mouth 30 tablet 1 07/15/19 20 Suspended tabletIndications: daily. Generalized anxiety disorder, Panic disorder without agoraphobia, Severe episode of recurrent major depressive disorder, without psychotic features Additional information clonazePAM 1 mg Take 1 pill PO in 120 tablet 1 07/15/2019 Suspended tabletIndications: the AM, 1 PO in the Generalized anxiety disorder, afternoon, 1 pill PO Panic disorder without in the evening. May agoraphobia take additional 1 pill as needed acute anxiety. Additional information desvenlafaxine succinate Take 2 tablets by 60 tablet 1 020 Suspended (PRISTIQ) 100 mg 24 hr mouth daily. tabletIndications: Severe episode of recurrent major depressive disorder, without psychotic features, Generalized anxiety disorder Additional information pantoprazole 40 mg EC tablet Take 1 tablet by 180 tablet 0 Suspended mouth 2 (two) times daily. Additional information metOLazone 2.5 mg Take 1 tablet by 15 tablet 2 08/13/2019 Suspended tabletIndications: Vitamin B12 mouth every Friday, deficiency Friday and Friday. Additional information eplerenone 50 mg Take 1 tablet 60 tablet 0 08/19/2019 09/18/19 20 Suspended tabletIndications: by mouth 2 Hypokalemia (two) times daily for 30 days. Additional information KCL 20 mEq Take 2 tablets 180 tablet 0 08/19/2019 09/18/2019 S uspended tabletIndications: by mouth 3 Hypokalemia (three) times daily for 30 days. Additional information documented as of this encounter (statuses as of 08/25/2019) Active Problems Problem Noted Date Acute hypokalemia [...] Added automatically from request for lillian lawson [id number] Syncope 04/01/2017 Chest pain, rule out acute [...] Chest pain 06/12/2016 Coronary artery disease involving [place] coronary briseyda ry of [place] heart 06/12/2016 with angina pectoris [place] (myocardial infarction) 06/12/2016 Type 2 diabetes mellitus without complication 06/12/20 16 Essential hypertension 06/12/2016 History of alcohol abuse Overview: Sober for 16 years documented as of this encounter (statuses as of 08/25/2019) Resolved Problems Problem Noted Date Resolved Date Chest pain radiating to arm 08/08/2016 08/19/2016 Abdominal pain 07/19/2016 08/19/2016 History of epidural anesthesia 07/04/2016 7 Morbid obesity with body mass index of 50 or higher 06/26/19 17 08/19/2016 Obesity (BMI 30-39.9) 06/12/2016 08/19/2016 documented as of this encounter (statuses as of 08/25/2019) Immunizations Name Administration Dates Next Due Td [...] Office Visit Gastroenterology Jorge Luis Mccarty MD [address] [place] [address] [phone] 09/09/2019 Office Visit Psychiatry Mendez Martinez MD [address] [place] [phone] 09/09/2019 Office Visit Internal Medicine Lilibeth Andrade MD [address] [place] [address] 15 [phone] 10/12/2019 Office Visit Internal Medicine Lilibeth Andrade MD [address] [place] [address] 77 15 10/19/2019 Office Visit Endocrinology Diabetes & Tre Jones MD [address] [address] [phone] 10/27/2019 Office Visit Pulmonary Disease Max Aguiar MD [address] [place] [address] 77 15 [phone] 11/02/2019 Office Visit Internal Medicine Lilibeth Andrade MD [address] [place] [address] 15 [phone] 12/02/2019 Appointment Cardiac Electrophysiology Outpt-Simi, Pacemaker/Icd 12/02/2019 Office Visit Oncology Lincoln Griffiths MD [address] [place], [place] [address] [phone] 12/08/2019 Office Visit Ophthalmology Yariel Tineo MD [address] [place], [place] [address] 02/08/2020 Office Visit Cardiology Robert Adkins MD [address] [place], [place] [address] Name Type Priority Associated Diagnoses Date/Ti me PROTEIN C ANTIGEN LAB Routine Other elevated white bl ood 08/24/2019 11:12 AM MLT cell (WBC) count Iron deficiency anemia, unspecified iron deficiency anemia [...] 2019 ( Insurance / Financial) CREATININE (SERUM) 08/24/2020 08/25/2019, 08/24/2019, 08/19/2019, Additional history exists COLONOSCOPY 04/22/2027 04/22/2017 DTaP,Tdap,and Td Vaccines 06/26/2027 06/26/2017, 03/19/2015 Postponed from (1 - Tdap) 1980 (Not Indicated) documented as of this encounter Implants Implanted Type Area Wet Trimmer Device Shelf Model / Identifier Expiration Serial / Date Lot Prolene Mesh MESH Right: Ethicon 12/20/2020 PMSK / Implanted: Qty: 1 on 07/04/2016 by Alfonso Martinez MD at [facility] [employer] PMSK / [id number] Pacemaker PACEMAKER Stent-06/24/2016 Implanted: 06/24/2016 (Quantity not on file) documented as of this encounter Procedures Procedure Name Priority Date/Time Associated Diagnosis Comme nts PROTEIN S ACTIVITY Routine 08/24/2019 11:12 Other elevated [facility] te Results for this AM MLT blood cell (WBC) procedure a re in count the results Iron deficiency section. anemia, unspecified iron deficiency anemia type Chronic diastolic congestive heart failure Stage 2 chronic kidney disease Pulmonary embolism, unspecified chronicity, unspecified pulmonary embolism type, unspecified whether acute cor pulmonale present PROTEIN C ACTIVITY Routine 08/24/2019 11:12 Other elevated i te Results for this AM MLT blood cell (WBC) procedure a re in count the results Iron deficiency section. anemia, unspecified iron deficiency anemia type Chronic diastolic congestive heart failure Stage 2 chronic kidney disease Pulmonary embolism, unspecified chronicity, unspecified pulmonary embolism type, unspecified whether acute cor pulmonale present ANTITHROMBIN ACTIVITY Routine 08/24/2019 11:12 Other elevated white Results for this AM MLT blood cell (WBC) procedure a re in count the results Iron deficiency section. anemia, unspecified iron deficiency anemia type Chronic diastolic congestive heart failure Stage 2 chronic kidney disease Pulmonary embolism, unspecified chronicity, unspecified pulmonary embolism type, unspecified whether acute cor pulmonale present FACTOR 2 [id number] Routine 08/24/2019 11:12 Other elevated white Results for this MUTATION AM MLT blood cell (WBC) procedure a re in count the results Iron deficiency section. anemia, unspecified iron deficiency anemia type Chronic diastolic congestive heart failure Stage 2 chronic kidney disease Pulmonary embolism, unspecified chronicity, unspecified pulmonary embolism type, unspecified whether acute cor pulmonale present FACTOR 2 [id number] Routine 08/24/2019 11:12 Other elevated white Results for this MUTATION AM MLT blood cell (WBC) procedure a re in count the results Iron deficiency section. anemia, unspecified iron deficiency anemia type Chronic diastolic congestive heart failure Stage 2 chronic kidney disease Pulmonary embolism, unspecified chronicity, unspecified pulmonary embolism type, unspecified whether acute cor pulmonale present FACTOR 5 LEIDEN Routine 08/24/2019 11:12 Other elevated white Results for this AM MLT blood cell (WBC) procedure a re in count the results Iron deficiency section. anemia, unspecified iron deficiency anemia type Chronic diastolic congestive heart failure Stage 2 chronic kidney disease Pulmonary embolism, unspecified chronicity, unspecified pulmonary embolism type, unspecified whether acute cor pulmonale present BASIC METABOLIC PANEL Routine 08/24/2019 11:12 Chronic heart R esults for this (NA, K, CL, CO2, AM MLT failure with procedure a re in GLUCOSE, BUN, preserved ejection the resu lts CREATININE, CA) fraction section. MAGNESIUM Add-on 08/24/2019 11:12 Chronic heart Results fo r this AM MLT failure with procedure are i n preserved ejection the resul ts fraction section. documented in this encounter Results MAGNESIUM (08/24/2019 11:12 AM MLT) Pathologist Sig diogenes MAGNESIUM 1.9 1.7 - 2.4 mg/dL [facility] Specimen Blood - ARM, LEFT Performing Organization Address City/State/Zipcode Phone Number [facility] CLIA: [id number], [address] [place] [address] [address] [facility] FACTOR 5 LEIDEN (08/24/2019 11:12 AM MLT) Pathologist Sig nature FACTOR 5 LEIDEN Normal Normal [facility] Specimen Blood - ARM, LEFT Narrative Performed At Phenotype Characteristics: 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 Methodology: Polymerase chain reaction and fluorescenc e monitoring. Limitations: Rare Factor V mutations ([id number], [id number], and K9176H) and any additional SNPs in the probe binding r egion may interfere with the target detection and yield an I NVALID result. The performance of this assay has not been bret luated with samples from pediatric patients. Counseling and informed consent are recommended for ge netic testing. 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 Incidence: Approximately 2-5 percent of Caucasians and 0.3 percent of Americans are heterozygous; about 1 in 10,000 individuals are homozygous with two copies of t he mutation. Inheritance: Autosomal dominant. Penetrance: The risk of thrombosis is increased 2-4 fo ld for heterozygotes and further increased for homozygotes. Mutation Tested: F2 c.31397S>A ([id number]) . Clinical Sensitivity for Venous Thrombosis: Approximat jojo 10%. Methodology: Polymerase chain reaction and fluorescenc e monitoring Limitations: The performance of this assay has not bee n evaluated with samples from pediatric pa tients. Counseling and informed consent are recommended for ge netic testing. References: OMIM: [id number] https://ghr.nlm.nih.gov/condition/prothr ombin-thrombophilia Performing Organization Address City/[facility]/Zipcode Phone Number [facility] CLIA: [id number], [address] [place] [phone] [facility] ANTITHROMBIN ACTIVITY (08/24/2019 11:12 AM MLT) Pathologist [facility] [place] ANTITHROMBIN ACTIVITY 99 83 - 128 % [facility] VICES Specimen Blood - ARM, LEFT Performing Organization Address [facility] Phone Number [facility] CLIA: [id number], [address] [place] [address] [address] [facility] PROTEIN S ACTIVITY (08/24/2019 11:12 AM MLT) Pathologist Sig nature PROTEIN S ACTIVITY 79 64 - 149 % [facility] ES Specimen Blood - ARM, LEFT Narrative Performed At Age and hormonal status may affect the normal range fo r [facility] females (particularly during ). Test should n ot be ordered in patients on Coumadin as it can decrease Pro tein C and S levels. Additional studies should be conducted t o determine the source of unexpected abnormal results. Performing Organization Address [facility] Phone Number [facility] CLIA: [id number], [address] [place] [address] [address] [facility] PROTEIN C ACTIVITY (08/24/2019 11:12 AM MLT) Pathologist Sig nature PROTEIN C ACTIVITY 52 (L) 70 - 140 % [facility] Specimen Blood - ARM, LEFT Narrative Performed At Test should not be ordered in patients on Coumadin as it can [facility] decrease Protein C and S levels. Protein C activity is low in neonates and infants and increases to adult levels during adolescence. Additional studies should be conducted to determine the source of unexpected abnormal results. Performing Organization Address City/[facility] Phone Number [facility] CLIA: [id number], [address] [place] [address] [address] [facility] BASIC METABOLIC PANEL (91156)(NA, K, CL, CO2, GLUCOSE, BUN, CREATININE, CA) (08/24/2019 11:12 AM MLT) NA 138 135 - 145 [facility] mmol/L SERVICES K 2.9 (LL) 3.5 - 5.0 [facility] mmol/L SERVICES CL 89 (L) 98 - 108 mmol/L [facility] CO2 TOTAL 36 (H) 23 - 31 mmol/L [facility] AGAP 13 2 - 16 [facility] BUN 18 7 - 23 mg/dL [facility] GLUCOSE 223 (H) 70 - 110 mg/dL [facility] CREATININE 1.13 0.60 - 1.25 [facility] mg/dL SERVICES CALCIUM 9.7 8.6 - 10.6 [facility] mg/dL SERVICES eGFR Calculation 68.7 mL/min/1.73m2 [facility] (Non- SERVICES [place]) eGFR Calculation 83.3 mL/min/1.73m2 [facility] () SERVICES Specimen Blood - ARM, LEFT Narrative Performed At Association of Glomerular Filtration Rate (GFR) and St aging [facility] of Kidney Disease* + [...] . Performing Organization Address City/State/Zipcode Phone Number [facility] CLIA: [id number], [address] [place], [place] [address] [facility] documented in this encounter Visit [...] Phone Address T ype Group Dates HIM [facility] [place] [place] [phone] 2017-Prese [phone] [address] [employer] [facility] [id number] [place] [address] (Home) [place] [address] documented as of this encounter Advance Directives Name Relationship Healthcare Agent Communication Relationship Keaton Nelson Spouse Primary healthcare agent Elisabeth Martínez Sibling [place] [phone] agent (Mobile)
--- OUTSIDE RECORDS SUMMARY | 2019-11-07 22:21 | XMS REPORT | Summary of Care ---
:1970 Author Organization [facility] - [facility] Address [address] [place] [address] Care Team Providers Name Role Phone Elmer Andrade MD Primary Care Provider NAVJOT Espinoza Unavailable Unavailable MD Rocco Unavailable Mary Quezada MD Unavailable Genna Anand ASBESTOS MICROSCOPIST Unavailable Unavailable MD Casimiro Unavailable Ricardo Rodriguez DO Respiratory Medicine Physician Reason for Visit Reason Comments Abnormal Lab potassium Auth/Cert Status Reason Specialty Diagnoses / Referred By Referred To Procedures Contact Contact Emergency Medicine [facility] Em ergency Dept [address] [place] [address] [place] [address] Fax: Encounter Details Date Type Department Care Team Description 08/24/2019 - Emergency ADC Medicine Surgery Willie Wang llmonika, DO [address] [place] [address]. [address] [place], [place] 2[address] Hypokalemia 08/25/2019 Unit Adal Moran MD [address] [place] [address]. [address] [place], [place] [address] [address] [place] [address] [place] [address] Allergies Active Allergy Reactions Severity Noted [...] (two) times daily. ZINC ORAL Take by mouth every 0 Active other day. nitroglycerin (NITROSTAT) Place 1 tablet under 1 [...] needed for Nausea and Vomiting (N/V). Insulin [place], Use as directed, 1x 100 Each 1 [...] 020 Hypokalemia times daily for 30 days. aMILoride 5 mg Take 2 tablets by 120 tablet 0 08/25/201909/23 Active tabletIndications: mouth 2 (two) times 0 20 Hypokalemia daily for 30 days. documented as of [...] Added automatically from request for lillian renny [id number] Syncope 04/01/2017 Chest pain, rule out acute [...] 06/12/2016 Coronary artery disease involving seminole coronary briseyda ry of seminole heart 06/12/2016 with angina pectoris KS (myocardial infarction) 06/12/2016 [...] Sign Reading Time Taken Comments Blood Pressure 101/58 08/25/2019 4:00 PM TRANSMISSION SPECIALIST Pulse 75 08/25/2019 4:00 PM TRANSMISSION SPECIALIST Temperature 36.6 C (97.9 F) 08/25/2019 4:00 PM TRANSMISSION SPECIALIST Respiratory Rate 18 08/25/2019 4:00 PM TRANSMISSION SPECIALIST Oxygen Saturation 97% 08/25/2019 4:00 PM TRANSMISSION SPECIALIST Inhaled Oxygen Concentration - - Weight 129.5 kg (285 lb 6.4 oz) 08/25/2019 7:46 AM TRANSMISSION SPECIALIST Height 177.8 cm (5' 10") 08/25/2019 7:46 AM TRANSMISSION SPECIALIST Body Mass Index 40.95 08/25/2019 7:46 AM TRANSMISSION SPECIALIST documented in this encounter Discharge Summaries Adal Moran MD - 08/25/2019 5:30 PM CST Internal Medicine Discharge Summary ADMIT DATE: 08/24/2019 DISCHARGE DATE: 08/25/2019 ATTENDING MD: Adal Moran MD PCP: Lilibeth Andrade FINAL DIAGNOSIS: (the reason, after study, for admitting the patient to the hospital) Hypokalemia HOSPITAL COURSE: 49 y/o male presents with recurrent admissions for hypokalemia. Continue KCL, eplrenone, lasix as before. Seen by cardiology and nephrology and cleared for discharge. Dsicharge K 4.0. Started amilorideas per Dr. Rodriguez nephrology. Patient instructed to f/u with Dr. Rodriguez later this week with repeat BMP and then have weekly BMP for 2 weeks after that. He needs regular BMP to f/u his creatinine, potassium and electrolytes. CONSULTING SERVICES: Michael - nephrology Rocco - cardiology PROCEDURES: none SIGNIFICANT LAB/X-RAYS: LABS - reviewed pertinent labs as below: CBC BMP PT/INR WHITE BLOOD CELL COUNT-Q (Thousand/uL) Date Value 12/04/2016 10.9 (H) WBC (10*3/L) Date Value 08/25/2019 9.41 NA (mmol/L) Date Value 08/25/2019 140 SODIUM-Q (mmol/L) Date Value 11/24/2017 135 No results found for: PT RED BLOOD CELL COUNT-Q (Million/uL) Date Value 12/04/2016 5.24 RBC (10*6/L) Date Value 08/25/2019 4.95 K (mmol/L) Date Value 08/25/2019 4.0 POTASSIUM-Q (mmol/L) Date Value 11/24/2017 4.1 INR (no units) Date Value 08/25/2019 2.7 PLT (10*3/L) Date Value 08/25/2019 310 CALCIUM (mg/dL) Date Value 08/25/2019 10.5 CALCIUM-Q (mg/dL) Date Value 11/24/2017 9.0 HGB (g/dL) Date Value 08/25/2019 12.3 HEMOGLOBIN-Q (g/dL) Date Value 12/04/2016 13.0 (L) CL (mmol/L) Date Value 08/25/2019 94 (L) CHLORIDE-Q (mmol/L) Date Value 11/24/2017 99 aPTT HCT (%) Date Value 08/25/2019 38.9 HEMATOCRIT-Q (%) Date Value 12/04/2016 39.0 BUN (mg/dL) Date Value 08/25/2019 19 UREA NITROGEN (BUN)-Q (mg/dL) Date Value 11/24/2017 12 APTT Patient (Seconds) Date Value 06/04/2019 42 (H) CREATININE (mg/dL) Date Value 08/25/2019 1.28 (H) CREATININE-Q (mg/dL) Date Value 11/24/2017 0.88 IMAGING - reviewed No results found for this visit on 08/24/19. Exam NAD Anicteric sclera, oral mucosa clear Good air entry b/l RRR, nl s1s2 Abd soft NT AAO, no gross deficits Skin warm and dry ITEMS FOR FOLLOW UP PROVIDER: (including pending labs/cultures/studies, anticipated problems, etc.) BMP FUNCTIONAL STATUS: fully ambulatory DISCHARGE CONDITION: fair COGNITIVE STATUS: cognitively intact DIET: cardiac ACTIVITY: as tolerated DISCHARGE MEDICATIONS: Current Discharge Medication List START taking these medications Details aMILoride (MIDAMOR) 10 mg Take 10 mg by mouth 2 (two) times daily. Qty: 120 tablet, Refills: 0 Start date: 08/25/2019, End date: 09/24/2019 Associated Diagnoses: Hypokalemia CONTINUE these medications which have NOT CHANGED Details eplerenone (INSPRA) 50 mg Take 50 mg by mouth 2 (two) times daily. Qty: 60 tablet, Refills: 0 Associated Diagnoses: Hypokalemia KCL (KLOR-CON M20) 40 mEq Take 40 mEq by mouth 3 (three) times daily. Qty: 180 tablet, Refills: 0 Associated Diagnoses: Hypokalemia metOLazone (ZAROXOLYN 2.5MG) 2.5 mg Take 2.5 mg by mouth every Friday, Friday and Friday. Qty: 15 tablet, Refills: 2 Associated Diagnoses: Vitamin B12 deficiency pantoprazole (PROTONIX) 40 mg Take 40 mg by mouth 2 (two) times daily. Qty: 180 tablet, Refills: 0 ARIPiprazole (ABILIFY) 15 mg Take 15 mg by mouth daily. Qty: 30 tablet, Refills: 1 Comments: Discontinue previous prescription for Aripiprazole 10mg. Associated Diagnoses: Generalized anxiety disorder; Panic disorder without agoraphobia; Severe episode of recurrent major depressive disorder, without psychotic features clonazePAM 1 mg tablet Take 1 pill PO in the AM, 1 PO in the afternoon, 1 pill PO in the evening. May take additional 1 pill as needed acute anxiety. Qty: 120 tablet, Refills: 1 Associated Diagnoses: Generalized anxiety disorder; Panic disorder without agoraphobia desvenlafaxine succinate (PRISTIQ) 200 mg Take 200 mg by mouth daily. Qty: 60 tablet, Refills: 1 Associated Diagnoses: Severe episode of recurrent major depressive disorder, without psychotic features; Generalized anxiety disorder Insulin Glargine (LANTUS SOLOSTAR U-100 INSULIN) 12-14 Units inject 12-14 Units under the skin daily. Qty: 3 mL, Refills: 0 ondansetron (ZOFRAN-ODT) 4 mg Take 4 mg by mouth every 8 (eight) hours as needed for Nausea and Vomiting (N/V). Qty: 14 tablet, Refills: 0 Associated Diagnoses: Hyperglycemia cyanocobalamin (VITAMIN B12) 1,000 mcg 1,000 mcg by Intramuscular route every 2 (two) weeks. Qty: 12 mL, Refills: 3 Associated Diagnoses: Vitamin B12 deficiency PROMETHAZINE 25 mg tablet TAKE 1 TABLET BY MOUTH EVERY SIX HOURS NEEDED FOR NAUSEA OR VOMITING Qty: 30 tablet, Refills: 11 Associated Diagnoses: Non-intractable vomiting with nausea, unspecified vomiting type hydrocortisone 2.5 % cream Apply to affected area(s) 2 (two) times daily. If Insurance does not cover the jar then give tubes of cream. Qty: 454 g, Refills: 11 Associated Diagnoses: Seborrheic dermatitis nitroglycerin (NITROSTAT) 0.[address] 0.4 mg under the tongue every 5 (five) minutes as needed forChest pain. Qty: 1 Bottle, Refills: 1 ZINC ORAL Take by mouth every other day. Ranolazine (RANEXA) 1,000 mg Take 1,000 mg by mouth 2 (two) times daily. Qty: 60 tablet, Refills: 4 dulaglutide (TRULICITY) 0.75 mg inject 0.75 mg under the skin weekly. Qty: 4 Syringe, Refills: 4 Associated Diagnoses: Type 2 diabetes mellitus with cardiac complication metformin ER (GLUCOPHAGE-XR) 500 mg Take 500 mg by mouth daily with breakfast. Qty: 90 tablet, Refills: 3 Associated Diagnoses: Type 2 diabetes mellitus with cardiac complication allopurinoL (ZYLOPRIM) 300 mg Take 300 mg by mouth daily. Qty: 90 tablet, Refills: 3 Associated Diagnoses: Uric acid stone in urine Cholecalciferol, Vitamin D3, (VITAMIN D3) 2,000 unit tablet Take by mouth. polyethylene glycol (GLYCOLAX) 17 g Take 17 g by mouth daily. Qty: 238 g, Refills: 3 Associated Diagnoses: Constipation, unspecified constipation type ferrous sulfate 325 mg Take 325 mg by mouth 3 (three) times daily with meals. Qty: 270 tablet, Refills: 3 Associated Diagnoses: Iron deficiency anemia due to chronic blood loss !! warfarin 7.5 mg tablet Take as directed by [facility] based on INR results. Qty: 90 tablet, Refills: 3 Comments: Qty # 90 = 90 day supply. Patient uses both warfarin 10 mg and 7.5 mg tablets. Office [phone] Deepika Bagley RN furosemide (LASIX) 80 mg Take 80 mg by mouth every morning and evening. atorvastatin (LIPITOR) 40 mg Take 40 mg by mouth at bedtime. Qty: 90 tablet, Refills: 3 clopidogreL (PLAVIX) 75 mg Take 75 mg by mouth daily. Qty: 90 tablet, Refills: 3 buprenorphine-naloxone (SUBOXONE) [address] 8 mg under the tongue every 12 (twelve) hours as neededfor Pain (scale 7-10). methocarbamol (ROBAXIN) 750 mg Take 750 mg by mouth 2 (two) times daily. foLIC acid (FOLATE) 1 mg Take 1 mg by mouth daily. Qty: 90 tablet, Refills: 3 Associated Diagnoses: High plasma homocystine magnesium oxide 1 tablet Take 1 tablet by mouth daily. Qty: 90 tablet, Refills: 3 Associated Diagnoses: Low magnesium level pyridoxine HCl, vitamin B6, (VITAMIN B-6 ORAL) Take by mouth. Diclofenac Sodium 1 % gel Take 2-4 grams three times a day as needed for pain Qty: 100 g, Refills: 3 Associated Diagnoses: Chronic back pain greater than 3 months duration docusate (COLACE) 100 mg Take 100 mg by mouth 2 (two) times daily as needed for Constipation. Qty: 30 capsule, Refills: 0 Insulin Drav[place], Disposable, (RELION PEN NEEDLES) 32 gauge x 5/32" Ndle Use as directed, 1x daily, DX:E11.9 Qty: 100 Each, Refills: 1 clindamycin 1 % solution Apply to affected area(s) 2 (two) times daily. Qty: 60 mL, Refills: 6 Associated Diagnoses: Folliculitis testosterone (ANDROGEL) 20.25 mg/1.25 gram (1.62 %) gel pump Apply 2 Pumps to area(s) daily. Qty: 75 g, Refills: 3 Associated Diagnoses: Low testosterone !! warfarin 10 mg tablet Take as directed by [facility] based on INR results. Qty: 60 tablet, Refills: 3 Comments: Qty #60 = 90 day supply. Patient uses both warfarin 10 mg and 7.5 mg tablets. Office [phone] Deepika Bagley RN !! - Potential duplicate medications found. Please discuss with provider. PATIENT EDUCATION PROVIDED: medications and Heart Failure DISCHARGE: home self care FOLLOW-UP APPOINTMENT: Future Appointments Provider Department Dept Phone Center 08/27/2019 10:30 AM Practitioner, Heart Failure Nurse [facility] Cardiology- [place] [phone] [facility] 08/27/2019 3:00 PM Nurse, Vtc Anticoag [facility] [phone] [facility] 08/27/2019 4:30 PM Ioana Mccarty MD [facility] Gastroenterology[facility] [phone] [facility] 09/09/2019 8:30 AM Mendez Martinez MD [facility] Psychiatry- [place] [phone] [facility] 09/09/2019 2:40 PM Lilibeth Andrade MD [facility] Pediatric and Adult Primary Care- [phone] [facility] 10/12/2019 1:40 PM Lilibeth Andrade MD [facility] Adult Primary Care- [phone] [facility] 10/19/2019 3:00 PM Zhen Jones MD [facility] Endocrinology- [place] [phone] [facility] 10/27/2019 11:00 AM Max Aguiar MD [facility] Pulmonary Clinic [phone] [facility] 11/02/2019 10:00 AM Lilibeth Andrade MD [facility]- [place] [phone] [facility] 12/02/2019 10:15 AM Outpt-Simi, Pacemaker/Icd [facility] [place] [facility] [phone] Christine Matute 12/02/2019 1:00 PM Lincoln Griffiths MD [facility] Hematology-Oncology - [place] [phone] Paramjit Weems 12/08/2019 10:00 AM Yariel Tineo MD [facility]- [place] [phone] [facility] 02/08/2020 3:00 PM Robert Adkins MD [facility] Card[facility], [facility] [phone] [facility] [place] documented in this encounter Discharge Instructions AttachmentsThe following attachments cannot be sent through Care Everywhere. Hypokalemia (Lithuanian)Hypokalemia, Discharge Instructions (Lithuanian)Amiloride tablets (Lithuanian)documented in this encounter Progress Notes Karena Be, DARENSW - 08/25/2019 9:21 AM CSTSubjective Patient ID: John Paul Nelson is a 49 year old male. Care Management Social Functional Assessment Patient Name: John Paul Nelson Age: [age] year old Sex: male Patient's Previous Admission Date at [facility]: 10/06/2018 Current diagnosis and co-morbidities: hypokalemia Readmission Questions: Was patient discharged from any acute care hospital within the last 30 days: No Social Functional Assessment: Primary language spoken/preferred: Lithuanian Mental Status: Alert & Oriented to Person,Place & Time Information given by: Self Patient's support system: Spouse Name and number of support system: Keaton Nelson, and Elisabeth Soliz, sister [phone] Primary Brass Buffer: Self;Spouse MPOA: No Living Arrangement: Home Address of living arrangement : [address] [place] [id number] Persons living in home: Self;Spouse Barriers to returning home: None Baseline functional status- ambulation: Independent Functional status-baseline personal care: Independent Baseline functional status- driving: Independent Baseline functional status- grocery shopping: Independent Functional status-baseline housekeeping: Independent Functional status-baseline meal prep: Independent Current functional status same as prior: Yes Do you have a PCP?: Yes Name of PCP: Dr Andrade Home Health Care Agency: No Provider [...] you or your support system 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 Review of Systems Objective Physical Exam Assessment/Plan Home with , no needs to report LY Castro [employer] - Care Management [facility] [phone] [email or web address] MD - 08/25/2019 8:35 AM CST [facility] Cardiology progress note Date of Service: 08/25/2019 John Paul Nelson is a 49 years old male hospitalized for hypokalemia. K 3.3 today. Mild edema. PHYSICAL EXAM Vitals: 08/25/19 0348 08/25/19 0709 08/25/19 0746 08/25/19 0800 BP: 104/75 107/79 Pulse: 71 77 Resp: 18 20 20 Temp: 36.6 C (97.8 F) 35.9 C (96.6 F) TempSrc: Tympanic Temporal Artery SpO2: 95% 94% 95% Weight: 129.5 kg (285 lb 6.4 oz) Height: 1.778 m (5' 10") General: alert and oriented x 3 (person, place and date/time); no apparent distress HEENT: normocephalic atraumatic Neck: supple, no lymphadenopathy, no bruits, no JVD Lungs: clear to auscultation bilaterally Cardio: S1, S2, normal rate, regular; no murmurs, rubs or gallops Abdomen: non-distended : not examined Rectal: not examined Extremities: no clubbing, cyanosis, + mild pedal edema Skin: no rashes Neuro: no focal deficits Medications: I have reviewed the patient's medications; see Medication Reconciliation. Labs: I have reviewed the patient's labs. 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 K replacement per primary team. Consider to restart amiloride. Continue eplerenone. H/o PE--Continue warfarin. Chronic HFpEF--now with mild pedal edema. Recommend to restart lasix. Low salt diet. Fluid restriction. The need for metolazone is around once to twice a week. CAD--Stable. No angina. Continue home medications--plavix, metoprolol, and lipitor. Pacemaker GREGORIO--On C-PAP Al Valiente MD, FAC, VICTORIA Asparagus Cutter, Division of Cardiology [facility] documented in this encounter Plan of Treatment Date Type Specialty Care Team Description 08/27/2019 Office Visit Cardiology Practitioner, Heart Failure Nurse 08/27/2019 Nurse Visit Anti-coagulation Clinic Nurse, Vtc Antico ag 08/27/2019 Office Visit Gastroenterology Jorge Luis Mccarty MD [address] [place] [address] [phone] 09/09/2019 Office Visit Psychiatry NassauMendez MD [address] [place] [address]. [place] [address] 09/09/2019 Office Visit Internal Medicine Lilibeth Andrade MD [address] [place] [address] [phone] 10/12/2019 Office Visit Internal Medicine Lilibeth Andrade MD [address] [place] [address] [phone] 10/19/2019 Office Visit Endocrinology Diabetes & Tre Jones MD Metabolism [address] [place] [address] [phone] 10/27/2019 Office Visit Pulmonary Disease Max Aguiar MD [address] [facility] [address] [place], [place] [address] [phone] 11/02/2019 Office Visit Internal Medicine Lilibeth Andrade MD [address] [facility] [address] [place], [place] [address] [phone] 12/02/2019 Appointment Cardiac Electrophysiology Outpt-Simi, Pacemaker/Icd 12/02/2019 Office Visit Oncology Lincoln Griffiths MD [address] [place], [place] [address] [phone] 12/08/2019 Office Visit Ophthalmology Yariel Tineo MD [address] [place] [address] [address] [place], [place] [address] 02/08/2020 Office Visit Cardiology Robert Adkins MD [address] [place], [place] [address] Health Maintenance Due Date [...] of this encounter Implants Implanted Type Area Chief Creative Officer Device Shelf Model / Identifier Expiration Serial / Date Lot Prolene Mesh MESH Right: Ethicon 12/20/2020 PMSK / Implanted: Qty: 1 on 07/04/2016 by Alfonso Martinez MD at [facility] [employer] PMSK / [id number] Pacemaker PACEMAKER Stent-06/24/2016 Implanted: 06/24/2016 (Quantity not on file) documented as of this encounter Procedures Procedure Name Priority Date/Time Associated Comments Diagnosis POCT GLUCOSE Routine 08/25/2019 4:17 Results for this (AUTOMATED) PM TRANSMISSION SPECIALIST procedure are i n the results section. BASIC METABOLIC PANEL Routine 08/25/2019 2:26 Re sults for this (NA, K, CL, CO2, PM TRANSMISSION SPECIALIST procedure a re in GLUCOSE, BUN, the results CREATININE, CA) section. POCT GLUCOSE Routine 08/25/2019 11:11 Results for this (AUTOMATED) AM TRANSMISSION SPECIALIST procedure are i n the results section. POCT GLUCOSE Routine 08/25/2019 7:35 Results for this (AUTOMATED) AM TRANSMISSION SPECIALIST procedure are i n the results section. CBC WITH DIFFERENTIAL Routine 08/25/2019 4:05 Re sults for this AM TRANSMISSION SPECIALIST procedure are i n the results section. PROTHROMBIN TIME / Routine 08/25/2019 4:05 Resul ts for this INR AM TRANSMISSION SPECIALIST procedure are i n the results section. CBC WITH DIFFERENTIAL Routine 08/25/2019 4:05 Re sults for this AM TRANSMISSION SPECIALIST procedure are i n the results section. BASIC METABOLIC PANEL Routine 08/25/2019 4:05 Re sults for this (NA, K, CL, CO2, AM TRANSMISSION SPECIALIST procedure a re in GLUCOSE, BUN, the results CREATININE, CA) section. MAGNESIUM Routine 08/25/2019 4:05 Results for this AM TRANSMISSION SPECIALIST procedure are i n the results section. BASIC METABOLIC PANEL STAT 08/25/2019 12:17 Re sults for this (NA, K, CL, CO2, AM TRANSMISSION SPECIALIST procedure a re in GLUCOSE, BUN, the results CREATININE, CA) section. POCT GLUCOSE Routine 08/24/2019 8:34 Results for this (AUTOMATED) PM TRANSMISSION SPECIALIST procedure are i n the results section. EKG-12 LEAD Routine 08/24/2019 3:19 PM TRANSMISSION SPECIALIST NOTICE OF PRIVACY Routine 08/24/2019 3:04 PRACTICES PM TRANSMISSION SPECIALIST documented in this encounter Results POCT GLUCOSE (AUTOMATED) (08/25/2019 4:17 PM TRANSMISSION SPECIALIST) Pathologist Sig nature POCT GLU 220 (H) 70 - 110 mg/dL [facility] Specimen Blood Performing Organization Address City/State/Zipcode Phone Number [facility] CLIA: [id number], [address] [place], [place] [address] BASIC METABOLIC PANEL (NA, K, CL, CO2, GLUCOSE, BUN, CREATININE, CA) (08/25/2019 2:26 PM TRANSMISSION SPECIALIST) NA 140 135 - 145 [facility] mmol/L [facility] K 4.0 3.5 - 5.0 [facility] mmol/L [facility] CL 94 (L) 98 - 108 mmol/L [facility] CO2 TOTAL 36 (H) 23 - 31 mmol/L [facility] AGAP 10 2 - 16 [facility] BUN 19 7 - 23 mg/dL [facility] GLUCOSE 204 (H) 70 - 110 mg/dL [facility] CREATININE 1.28 (H) 0.60 - 1.25 [facility] mg/dL [facility] CALCIUM 10.5 8.6 - 10.6 [facility] mg/dL [facility] eGFR Calculation 59.5 mL/min/1.73m2 [facility] (Non[facility] LABORATORY [place]) eGFR Calculation 72.1 mL/min/1.73m2 [facility] () [facility] Specimen Blood - ARM, RIGHT Narrative Performed At Association of Glomerular Filtration Rate (GFR) [facility] and Staging of Kidney Disease* [...] abnormalities in imaging tests). Performing Organization Address City/[facility] Phone Number [facility] CLIA: [id number], [address] [place] [address] POCT GLUCOSE (AUTOMATED) (08/25/2019 11:11 AM TRANSMISSION SPECIALIST) Pathologist Sig NeuroTronik POCT GLU 155 (H) 70 - 110 mg/dL [facility] Specimen Blood Performing Organization Address [facility] Phone Number [facility] CLIA: [id number], [address] [place] [address] POCT GLUCOSE (AUTOMATED) (08/25/2019 7:35 AM TRANSMISSION SPECIALIST) Pathologist Sig NeuroTronik POCT GLU 166 (H) 70 - 110 mg/dL [facility] Specimen Blood Performing Organization Address [facility] Phone Number [facility] CLIA: [id number], [address] [place] [address] CBC WITH DIFFERENTIAL (08/25/2019 4:05 AM TRANSMISSION SPECIALIST) Pathologist Sig [employer]ron[employer] WBC 9.41 4.20 - 10.70 [facility] 10*3/L [facility] RBC 4.95 4.26 - 5.52 [facility] 10*6/L [facility] HGB 12.3 12.2 - 16.4 [facility] g/dL [facility] HCT 38.9 38.4 - 49.3 % [facility] MCV 78.6 (L) 81.7 - 95.6 fL [facility] MCH 24.8 (L) 26.1 - 32.7 pg [facility] MCHC 31.6 31.2 - 35.0 [facility] g/dL [facility] RDW-SD 44.5 38.5 - 51.6 fL [facility] RDW-CV 15.7 (H) 12.1 - 15.4 % [facility] PLT 310 150 - 328 [facility] 10*3/L [facility] MPV 10.2 9.8 - 13.0 fL [facility] NRBC/100 WBC 0.0 0.0 - 10.0 /100 [facility] WBCs [facility] NRBC x10^3 <0.01 10*3/L [facility] GRAN MAT (NEUT) % 72.3 % [facility] IMM GRAN % 0.60 % [facility] LYMPH % 20.2 % [facility] MONO % 5.5 % [facility] EOS % 1.0 % [facility] BASO % 0.4 % [facility] GRAN MAT x10^3(ANC) 6.80 1.99 - 6.95 [facility] 10*3/uL [facility] IMM GRAN x10^3 0.06 0.00 - 0.06 [facility] 10*3/uL [facility] LYMPH x10^3 1.90 1.09 - 3.23 [facility] 10*3/uL [facility] MONO x10^3 0.52 0.36 - 1.02 [facility] 10*3/uL [facility] EOS x10^3 0.09 0.06 - 0.53 [facility] 10*3/uL [facility] BASO x10^3 0.04 0.01 - 0.09 [facility] 10*3/uL [facility] Specimen Blood - ARM, RIGHT Performing Organization Address City/State/Zipcode Phone Number [facility] CLIA: [id number], [address] [place] [phone] Basic Metabolic Panel (NA, K, CL, CO2, GLUCOSE, BUN, CREATININE, CA) (08/25/2019 4:05 AM TRANSMISSION SPECIALIST) Pathologist Sig nature NA 138 135 - 145 [facility] mmol/L [facility] K 3.3 (L) 3.5 - 5.0 [facility] mmol/L [facility] CL 95 (L) 98 - 108 mmol/L [facility] CO2 TOTAL 33 (H) 23 - 31 mmol/L [facility] AGAP 10 2 - 16 [facility] BUN 19 7 - 23 mg/dL [facility] GLUCOSE 200 (H) 70 - 110 mg/dL [facility] CREATININE 1.24 0.60 - 1.25 [facility] mg/dL [facility] CALCIUM 9.8 8.6 - 10.6 [facility] mg/dL [facility] eGFR Calculation 61.7 mL/min/1.73m2 [facility] (Non-[facility] LABORATORY [place]) eGFR Calculation 74.8 mL/min/1.73m2 [facility] () [facility] Specimen Blood - ARM, RIGHT Narrative Performed At Association of Glomerular Filtration Rate (GFR) [facility] and Staging of Kidney Disease* [...] City/State/Zipcode Phone Number [facility] CLIA: [id number], [address] [place], [place] [address] PROTHROMBIN TIME / INR (08/25/2019 4:05 AM TRANSMISSION SPECIALIST) PROTIME PATIENT 27.2 (H) 12.0 - 14.7 [facility] LABORATORY INR 2.7Comment: Normal [facility] INR <1.1; [facility] H[facility]PITAL Therapeutic range LABORATORY 2.0 to 3.0 or 2.5 to 3.5, depending upon the indications. Specimen Blood - ARM, RIGHT Performing Organization Address [facility] Phone Number [facility] CLIA: [id number], [address] [place], [place] [address] Magnesium Serum (08/25/2019 4:05 AM TRANSMISSION SPECIALIST) Pathologist [facility] MAGNESIUM 2.0 1.7 - 2.4 mg/dL [facility] Specimen Blood - ARM, RIGHT Performing Organization Address [facility] Phone Number [facility] CLIA: [id number], [address] [place] [place] BASIC METABOLIC PANEL (NA, K, CL, CO2, GLUCOSE, BUN, CREATININE, CA) (08/25/2019 12:17 AM TRANSMISSION SPECIALIST) Pathologist Sig nature NA 136 135 - 145 [facility] mmol/L [facility] K 5.4 (H) 3.5 - 5.0 [facility] mmol/L [facility] CL 95 (L) 98 - 108 mmol/L [facility] CO2 TOTAL 34 (H) 23 - 31 mmol/L [facility] AGAP 7 2 - 16 [facility] BUN 19 7 - 23 mg/dL [facility] GLUCOSE 130 (H) 70 - 110 mg/dL [facility] CREATININE 1.18 0.60 - 1.25 [facility] mg/dL [facility] CALCIUM 9.6 8.6 - 10.6 [facility] mg/dL [facility] eGFR Calculation 65.3 mL/min/1.73m2 [facility] (Non[facility] LABORATORY [place]) eGFR Calculation 79.2 mL/min/1.73m2 [facility] () [facility] Specimen Blood - ARM, RIGHT Narrative Performed At [facility] Glomerular Filtration Rate (GFR) [facility] and Staging of Kidney Disease* [...] abnormalities in imaging tests). Performing Organization Address City/[facility] Phone Number [facility] CLIA: [id number], [address] [place], [place] [address] POCT GLUCOSE (AUTOMATED) (08/24/2019 8:34 PM TRANSMISSION SPECIALIST) [facility] POCT GLU 209 (H) 70 - 110 mg/dL [facility] Specimen Blood Performing Organization Address City/[facility] Phone Number [facility] CLIA: [id number], [address] [place], [place] [address] documented in this encounter Visit Diagnoses Diagnosis Hypokalemia - Primary Hypopotassemia Chronic diastolic congestive heart failu re Chronic diastolic heart failure 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 Essential hypertension Unspecified essential hypertension GREGORIO (obstructive sleep apnea) Obstructive sleep apnea (adult) (pediatr ic) Morbid obesity with body mass index of 4 0.0-49.9 Pacemaker Cardiac pacemaker in situ Pulmonary emboli Other pulmonary embolism and infarction Type 2 diabetes mellitus without complic ation documented in this encounter Administered Medications Medication Order MAR Action Action Date Dose Rate Site allopurinoL (ZYLOPRIM) tablet 300 Given 08/25/2019 8:45 AM TRANSMISSION SPECIALIST 300 mg mg 300 mg, Oral, DAILY, First dose on Fri08/25/19 at 0900, Until Discontinued, Routine aMILoride (MIDAMOR) tablet 10 mg Given 08/25/2019 8:44 AM TRANSMISSION SPECIALIST 10 mg 10 mg, Oral, BID, First dose on Fri08/25/19 at 0800, Until Discontinued, Routine ARIPiprazole (ABILIFY) tablet 15 mg Given 08/25/2019 8:44 AM TRANSMISSION SPECIALIST 15 mg 15 mg, Oral, DAILY, First dose on Fri08/25/19 at 0900, Until Discontinued, Routine atorvastatin (LIPITOR) tablet 40 mg Given 08/24/2019 8:40 PM TRANSMISSION SPECIALIST 40 mg 40 mg, Oral, QHS, First dose on Fri08/24/19 at 2100, Until Discontinued, Routine buprenorphine HCL (SUBUTEX) sublingual tablet Given 9:19 AM TRANSMISSION SPECIALIST 8 mg 8 mg 8 mg, Sublingual, BID, First dose on Fri08/25/19 at 0900, Until Discontinued, Routine buprenorphine-naloxone (SUBOXONE) 8-2 mg Given 08/24/2019 10:03 PM TRANSMISSION SPECIALIST 8 mg sublingual film 8 mg 8 mg, Sublingual, [id number], Starting Fri08/24/19 at 2132, Until Discontinued, Routine, Pain (scale 7-10), Reason for Non-Formulary Use: SPECIFIC INDICATION FOR NONFORMULARY 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, 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 Non-formulary medication: YIFAN ROMERO clonazePAM (KLONOPIN) tablet 1 mg Given 08/25/2019 5:09 PM TRANSMISSION SPECIALIST 1 mg 1 mg, Oral, QID, First dose on Fri08/25/19 at 1200, Until Discontinued, Routine Given 08/25/2019 12:26 PM TRANSMISSION SPECIALIST 1 mg Given 08/25/2019 9:18 AM TRANSMISSION SPECIALIST 1 mg clopidogreL (PLAVIX) tablet 75 mg Given 08/25/2019 8:45 AM TRANSMISSION SPECIALIST 75 mg 75 mg, Oral, DAILY, First dose on Fri08/25/19 at 0900, Until Discontinued, Routine desvenlafaxine succinate (PRISTIQ) 24 hr tablet 200 mg 200 mg, Oral, DAILY, First dose on Fri at 0900, Until Discontinued, Routine docusate (COLACE) capsule 100 mg Given 08/25/2019 8:45 AM TRANSMISSION SPECIALIST 100 mg 100 mg, Oral, DAILY, First dose on Fri08/25/19 at 0900, Until Discontinued, Routine eplerenone (INSPRA) tablet 50 mg Given 08/25/2019 8:45 AM TRANSMISSION SPECIALIST 50 mg 50 mg, Oral, BID, First dose on Fri08/24/19 at 2000, Until Discontinued, Routine Given 08/24/2019 8:39 PM TRANSMISSION SPECIALIST 50 mg ferrous sulfate tablet 325 mg Given 08/25/2019 5:08 PM TRANSMISSION SPECIALIST 325 mg 325 mg, Oral, TID MEALS, First dose on Fri08/24/19 at 1700, Until Discontinued, Routine Given 08/25/2019 12:26 PM TRANSMISSION SPECIALIST 325 mg Given 08/25/2019 8:45 AM TRANSMISSION SPECIALIST 325 mg foLIC acid (FOLATE) tablet 1 mg Given 08/25/2019 8:45 AM TRANSMISSION SPECIALIST 1 mg 1 mg, Oral, DAILY, First dose on Fri08/25/19 at 0900, Until Discontinued, Routine furosemide (LASIX) tablet 80 mg Given 08/25/2019 5:08 PM TRANSMISSION SPECIALIST 80 mg 80 mg, Oral, QAM+PM, First dose on Fri08/25/19 at 0900, Until Discontinued, Routine Given 08/25/2019 10:29 AM TRANSMISSION SPECIALIST 80 mg insulin glargine (LANTUS Given 08/25/2019 8:47 AM TRANSMISSION SPECIALIST 14 Units Right Upper Arm-SC U-100) injection 14 Units 14 Units, Subcutaneous, DAILY, First dose on Fri08/25/19 at 0900, Until Discontinued KCL (KLOR-CON M20) tablet 80 mEq Given 08/25/2019 2:09 PM TRANSMISSION SPECIALIST 80 mEq 80 mEq, Oral, TID, First dose on Fri08/25/19 at 0900, Until Discontinued, Routine magnesium oxide (MAG-OX 400) tablet 400 mg Given 08/25/2019 8:44 AM TRANSMISSION SPECIALIST 400 mg 400 mg, Oral, DAILY, First dose on Fri08/25/19 at 0900, Until Discontinued methocarbamol (ROBAXIN) tablet 750 mg Given 08/25/2019 8:44 AM TRANSMISSION SPECIALIST 750 mg 750 mg, Oral, BID, First dose on Fri08/24/19 at 2000, Until Discontinued, Routine Given 08/24/2019 8:40 PM TRANSMISSION SPECIALIST 750 mg metOLazone (ZAROXOLYN) tablet 2.5 mg 2.5 mg, Oral, QMON/FRI, First dose on Fri08/27/19 at 09 00, Until Discontinued, Routine pantoprazole (PROTONIX) EC tablet 40 mg Given 08/25/2019 8:45 AM TRANSMISSION SPECIALIST 40 mg 40 mg, Oral, BID, First dose on Fri08/24/19 at 2000, Until Discontinued, Routine Given 08/24/2019 8:40 PM TRANSMISSION SPECIALIST 40 mg ranolazine (RANEXA) 12 hr tablet 1,000 m g Given 08/25/2019 8:44 AM TRANSMISSION SPECIALIST 1,000 mg 1,000 mg, Oral, BID, First dose on Fri08/24/19 at 2000, Until Discontinued Given 08/24/2019 8:40 PM TRANSMISSION SPECIALIST 1,000 mg Sliding Scale Insulin - Aspart Given 08/25/2019 5:08 PM 1 Units Left Upper (NOVOLOG) + Fsbg Testing TRANSMISSION SPECIALIST Arm-SC Subcutaneous, TID MEALS+HS, First dose on Fri08/24/19 at 1700, Until Discontinued, Routine Given 08/24/2019 9:03 PM TRANSMISSION SPECIALIST 1 Units Left Upper Arm-SC warfarin (COUMADIN) tablet 10 mg Given 08/25/2019 5:09 PM TRANSMISSION SPECIALIST 10 mg 10 mg, Oral, QMON//FRI AT 1700, First dose on Fri08/25/19 at 1700, Until Discontinued, Routine Medication Order MAR Action Action Date Dose Rate Site clonazePAM (KLONOPIN) tablet 1 mg Given 08/24/2019 8:40 PM TRANSMISSION SPECIALIST 1 mg 1 mg, Oral, TID, First dose on Fri08/24/19 at 2000, Until Discontinued, Routine clonazePAM (KLONOPIN) tablet 1 mg Given 08/25/2019 4:04 AM TRANSMISSION SPECIALIST 1 mg 1 mg, Oral, ONCE, 1 dose, Fri08/25/19 at 0400, Routine KCL (KLOR-CON M20) tablet 80 mEq Given 08/24/2019 3:39 PM TRANSMISSION SPECIALIST 80 mEq 80 mEq, Oral, ONCE, 1 dose, Fri08/24/19 at 1630, LIVIA KCL (KLOR-CON M20) tablet 80 mEq Given 08/24/2019 8:40 PM TRANSMISSION SPECIALIST 80 mEq 80 mEq, Oral, TID, First dose on Fri08/24/19 at 2000, Until Discontinued, Routine KCL (KLOR-CON M20) tablet 80 mEq Given 08/25/2019 8:45 AM TRANSMISSION SPECIALIST 80 mEq 80 mEq, Oral, BID, First dose on Fri08/25/19 at 0800, Until Discontinued, Routine KCL 10 mEq/50 mL Piggyback 10 mEq Given 08/24/2019 7:45 PM TRANSMISSION SPECIALIST 10 mEq 10 mEq, IV Piggyback, ONCE, 1 dose, Fri08/24/19 at 1945, 50 mL NaCl 0.9% (NS) 1000 mL + KCL 40 mEq New Bag 08/24/2019 3:53 PM TRANSMISSION SPECIALIST 100 mL/hr IV Infusion, at 100 mL/hr, CONTINUOUS, Starting Tu08/24/19 at 1630, Until 08/25/19 at 0857, LIVIA documented in this encounter Insurance Payer Benefit Plan / Subscriber ID Effective Phone Address T ype Group Dates HIM [facility] [id number] 2017-Lux [phone] [address] [employer] [facility] [employer] [phone] [place] [address] documented as of this encounter Advance Directives Name Relationship Healthcare Agent Communication Relationship Pandagutierrez Leslie Spouse Primary healthcare agent Elisabeth Soliz [facility]ibling [facility] 9-3 agent (Mobile)
--- OUTSIDE RECORDS SUMMARY | 2019-11-07 22:23 | XMS REPORT | Summary of Care ---
:1970 Author Organization [facility] Address [address] [place] [address] Care Team Providers Name Role Phone Elmer Andrade MD Primary Care Provider NAVJOT Espinoza Unavailable Unavailable MD Rocco Unavailable Mary Quezada MD Unavailable Genna Anand FURNITURE SPRAYER Unavailable Unavailable MD Casimiro Unavailable Ricardo Rodriguez DO Reinsurance Claims Analyst Reason for Visit Reason Comments CHF New Patient (Routine) Status Reason Specialty Diagnoses / Referred By Referred To Procedures Contact Contact New Request Hematology Diagnoses Chronic diastolic CHF (congestive heart failure) I50.32 (ICD-10-CM) - Chronic diastolic CHF (congestive heart failure) Robert Adkins Procedures CONSULT/REFERRAL HEMATOLOGY MD Namita [address] [facility] [id number] [place] [address] Encounter Details Date Type Department Care Team Description 08/24/2019 Office Visit [facility] Lincoln Griffiths MD Pulmonary embolism, unspecified chronici ty, unspecified pulmonary embolism type, unspecified whether acute cor pulmonale present (Primary Dx); Hematology-Oncology - [address] [facility] Other elevated white blood cell (WBC) co unt; [place] [address] Iron deficiency anemia, unspecified iron deficiency anemia type; [address] [phone] Chronic diastolic congestive heart failu re; [facility], Tania elias 2 chronic kidney disease [address] [place] [address] Allergies Active Allergy Reactions Severity Noted Date [...] as of this encounter (statuses as of 08/26/2019) Medications Medication Sig Dispensed Refills Start Date [...] directed 90 tablet 3 10/30/2018 Active by [facility] based on INR results. ferrous sulfate [...] times daily. ZINC ORAL Take by mouth 0 Activ e every other day. nitroglycerin Place 1 tablet 1 Bottle 1 05/18/2019 Active (NITROSTAT) 0.4 mg under the tongue sublingual tablet every 5 (five) minutes as needed for Chest pain. hydrocortisone 2.5 % Apply to 454 g [...] daily. (1.62 %) gel pumpIndications: Low testosterone cyanocobalamin (VITAMIN 1 mL by 12 mL 3 06/18/2019 Active B-12) 1,000 mcg/mL Intramuscular injectionIndications: route every 2 Vitamin B12 deficiency (two) weeks. clindamycin 1 % Apply to 60 mL 6 06/11/2019 Act rosetta solutionIndications: affected area(s) Folliculitis 2 (two) times daily. ondansetron (ZOFRAN Take 1 tablet by 14 tablet 0 06/23/2019 Active ODT) 4 mg mouth every 8 disintegrating (eight) hours as tabletIndications: needed for Nausea Hyperglycemia and Vomiting (N/V). Insulin [place], Use as directed, 100 Each 1 06/25/2019 [...] Take 1 tablet by 60 tablet 0 08/19/201908/22 Active tabletIndications: mouth 2 (two) 8/20 Hypokalemia times daily for 20 30 days. KCL 20 mEq Take 2 tablets by 180 tablet 0 08/19/201908/22 Active tabletIndications: mouth 3 (three) 8/20 Hypokalemia times daily for 20 30 days. nystatin 100,000 Apply to area(s) 60 g 11 05/15/2019 03/0 Discontinued unit/gram 2 (two) times 09/09 (Patie nt powderIndications: Skin daily. 20 Reported) yeast infection urea 40 % Apply to area(s) 198 g 6 06/11/2019 03/0 D iscontinued creamIndications: daily. 09/09 (P atient Xerosis cutis 20 Report ed) documented as of this encounter (statuses as of 08/26/2019) Active Problems Problem Noted Date Acute hypokalemia [...] Added automatically from request for lillian lawson [id number] Syncope 04/01/2017 Chest pain, rule out acute [...] Chest pain 06/12/2016 Coronary artery disease involving [place] coronary briseyda ry of [place] heart 06/12/2016 with angina pectoris ME (myocardial infarction) 06/12/2016 Type 2 diabetes mellitus without complication 06/12/20 16 Essential hypertension 06/12/2016 History of alcohol abuse Overview: Sober for 16 years documented as of this encounter (statuses as of 08/26/2019) Resolved Problems Problem Noted Date Resolved Date Chest pain radiating to arm 08/08/2016 08/19/2016 Abdominal pain 07/19/2016 08/19/2016 History of epidural anesthesia 07/04/2016 7 Morbid obesity with body mass index of 50 or higher 06/26/19 17 08/19/2016 Obesity (BMI 30-39.9) 06/12/2016 08/19/2016 documented as of this encounter (statuses as of 08/26/2019) Immunizations Name Administration Dates Next Due Td [...] Sign Reading Time Taken Comments Blood Pressure 104/75 08/24/2019 9:34 AM OFFICE ASSISTANT RECEPTIONIST Pulse 88 08/24/2019 9:34 AM OFFICE ASSISTANT RECEPTIONIST Temperature 36.2 C (97.2 F) 08/24/2019 9:34 AM OFFICE ASSISTANT RECEPTIONIST Respiratory Rate 16 08/24/2019 9:34 AM OFFICE ASSISTANT RECEPTIONIST Oxygen Saturation 100% 08/24/2019 9:34 AM OFFICE ASSISTANT RECEPTIONIST Inhaled Oxygen Concentration - - Weight 130.1 kg (286 lb 13.1 oz) 08/24/2019 9:34 AM OFFICE ASSISTANT RECEPTIONIST Height 168.9 cm (5' 6.5") 08/24/2019 9:34 AM OFFICE ASSISTANT RECEPTIONIST Body Mass Index 45.61 08/24/2019 9:34 AM OFFICE ASSISTANT RECEPTIONIST documented in this encounter Progress Notes Lincoln Griffiths MD - 08/24/2019 9:40 AM CST Hematology/Medical Oncology Clinic Note Patient: John Paul Nelson Age: [age] year old Attending: Lincoln Griffiths MD Date of Visit: August 24, 2019 Chief Complaint: H/O PE, iron deficiency anemia SUBJECTIVE John Paul Nelson is a 49 year old male with a PMH of HTN, HLD, DM, anxiety, depression, AAA, DJD, CHF, CAD s/p stent, TIA, RBBB, bradycardia s/p PPM, Hyperaldosteronism, CKD II-III, pernicious anemiaon Q2 weeks B12, iron deficiency anemia needing iron infusions 2017, kidney stones s/p lithotripsy, l martine nodule, 1 episode of atrial fibrillation 2015, pulmonary embolism 09/2017 who presents for anticoagulation recommendations. Additionally, he is being referred to rule out amyloidosis as a reason forthe diastolic CHF. Of note, he did have a myocardial biopsy in 05/2019 that only showed minimal interstitial fibrosis but negative staining for amyloid or iron deposition. SPEP 03/2019 onpy showed polyclonal increase in IgA without any M spike. K/L ratio is minimally elevated at 1.68 with K light chains at 3.15. Mr. Nelson reports that he tends to "clot very easily". He says that when he stopped coumadin for the endomyocardial biopsy procedure, he was informed that he was "clotting as they were trying to placethe line". He reports to good compliance to coumadin with no major bleeding issues except for easy skin bruisability. Currently uses testosterone gel daily. He reports to [place] but denied any CP, SOB, nausea, vomiting, AP, changes in bowel or bladder habits. Denied any dark stools, blood in urine or stools. Denied any fevers, night sweats, unintentional weight loss or focal neuro deficits. Does have some peripheral neuropathy and arthritic pain. He reports father with leukemia and paternal grandmother with some sort of cancer. He reports to being a former smoker, quit in 2013. Denied any alcohol or illicit drug use. 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 smoking history. will need repeat in 6-12 months. ME (myocardial infarction) November 2015, 1 stent in RCA Microcytic anemia low MCV 2016 Right bundle branch block Uveitis Past Surgical History: Procedure Laterality Date COLONOSCOPY Left 04/22/2017 Surgeon: Ioana Mccarty MD; Location: [place] OR Location ESOPHAGOGASTRODUODENOSCOPY Left 04/22/2017 Surgeon: Ioana Mccarty MD; Location: [place] [facility] OR Location EXPLORATION, CAROTID ARTERY Right 10/29/2017 EXTRACORPOREAL SHOCKWAVE LITHOTRIPSY 1999, 2014 INGUINAL HERNIORRHAPHY N/A 07/04/2016 Surgeon: Alfonso Martinez MD; Location: [facility] Location LUMBAR EPIDURAL STEROID INJECTION N/A 03/10/2017 Surgeon: Dagoberot Luna MD; Location: [facility] Location LUMBAR EPIDURAL STEROID INJECTION N/A 04/14/2017 Surgeon: Dagoberto Luna MD; Location: [facility] Location LUMBAR EPIDURAL STEROID INJECTION N/A 04/28/2017 Surgeon: Dagoberto Luna MD; Location: [facility] Location LUMBAR EPIDURAL STEROID INJECTION N/A 03/29/2019 Surgeon: Dagoberto Luna MD; Location: [facility] Location LUMBAR EPIDURAL STEROID INJECTION N/A 04/12/2019 Surgeon: Dagoberto Luna MD; Location: [facility] Location LUMBAR EPIDURAL STEROID INJECTION N/A 04/26/2019 Surgeon: Dagoberto Luna MD; Location: [facility] OR Location PILL CAM (SHX) Left 07/14/2017 Surgeon: Motility, Endoscopy; Location: [facility] Location RIGHT HEART CATHETERIZATION 11/25/2016 Allergies Allergen Reactions Beta-Blockers (Beta-Adrenergic Blocking Agts) Other - See comments Per patient "heart rate drop, lethargic, weak" Other reaction(s): Other (see comments), Other (see comments), Other (see comments), Other (see comments), Other (see comments) Per patient "heart rate drop, lethargic, weak" But does take PRN for afib ??? All beta blockers cause bradycardia But does take PRN for afib ??? Butorphanol Other - See comments tachycardia "tachycardia" tachycardia "tachycardia" tachycardia Seroquel [Quetiapine Fumarate] Other - See comments Involuntary jerking Stadol [Butorphanol Tartrate] Other - See comments tachycardia Tramadol Unknown - See comments and Palpitations Tachycardia Other reaction(s): Other (see comments) Tachycardia Tachycardia Tachycardia Adhesive Tape-Silicones Other - See comments Paper tape only !! Tears skin. Other reaction(s): Other (see comments) Paper tape only !! Tears skin. Alfuzosin Unknown - See comments Flomax [Tamsulosin Hcl] Other - See comments Gabapentin Other - See comments diaphoretic Other reaction(s): Other (see comments) Flushed and over sedation Flushed and over sedation diaphoretic Meperidine Other - See comments and Unknown - See comments Patient unsure why documented in mr Patient unsure why documented in mr Metaxalone Other - See comments and Unknown - See comments Flushed and over sedation Flushed and over sedation Mirtazapine Other - See comments Urinary issues, gaining weight Other reaction(s): Other (see comments) Urinary issues, gaining weight Quetiapine Other - See comments akathisia akathisia Spironolactone Other - See comments Breast tenderness Other reaction(s): Other (see comments) Breast tenderness Tamsulosin Other - See comments Dilation of eyes and couldn't see "too over power" Dilation of eyes and couldn't see "too over power" Trazodone Other - See comments Hot flashes Other reaction(s): Other (see comments) sweating sweating Hot flashes Patient's Medications START taking these medications AMILORIDE 5 MG TABLET Take 2 tablets by mouth 2 (two) times daily for 30 days. CONTINUE taking these medications which have NOT CHANGED ALLOPURINOL 300 MG TABLET Take 1 tablet by mouth daily. ARIPIPRAZOLE 15 MG TABLET Take 1 tablet by mouth daily. ATORVASTATIN (LIPITOR) 40 MG TABLET Take 1 tablet by mouth at bedtime. BUPRENORPHINE-NALOXONE (SUBOXONE) 8-[address] 8 mg under the tongue every 12 (twelve) hours as needed for Pain (scale 7-10). CHOLECALCIFEROL, VITAMIN D3, (VITAMIN D3) 2,000 UNIT TABLET Take by mouth. CLINDAMYCIN 1 % SOLUTION Apply to affected area(s) 2 (two) times daily. CLONAZEPAM 1 MG TABLET Take 1 pill PO in the AM, 1 PO in the afternoon, 1 pill PO in the evening. May take additional 1 pill as needed acute anxiety. CLOPIDOGREL (PLAVIX) 75 MG TABLET Take 1 tablet by mouth daily. CYANOCOBALAMIN (VITAMIN B-12) 1,000 MCG/ML INJECTION 1 mL by Intramuscular route every 2 (two) weeks. DESVENLAFAXINE SUCCINATE (PRISTIQ) 100 MG 24 HR TABLET Take 2 tablets by mouth daily. DICLOFENAC SODIUM 1 % GEL Take 2-4 grams three times a day as needed for pain DOCUSATE 100 MG CAPSULE Take 1 capsule by mouth 2 (two) times daily as needed for Constipation. DULAGLUTIDE (TRULICITY) 0.75 MG/0.5 ML PNIJ inject 0.75 mg under the skin weekly. EPLERENONE 50 MG TABLET Take 1 tablet by mouth 2 (two) times daily for 30 days. FERROUS SULFATE (IRON) 325 MG (65 MG IRON) TABLET Take 1 tablet by mouth 3 (three) times daily with meals. FOLIC ACID 1 MG TABLET Take 1 tablet by mouth daily. FUROSEMIDE (LASIX) 80 MG TABLET Take 80 mg by mouth every morning and evening. HYDROCORTISONE 2.5 % CREAM Apply to affected area(s) 2 (two) times daily. If Insurance does notcover the jar then give tubes of cream. INSULIN GLARGINE (LANTUS SOLOSTAR U-100 INSULIN) 100 UNIT/ML (3 ML) INJECTION inject 12-14 Unitsunder the skin daily. INSULIN NEEDLES, DISPOSABLE, (RELION PEN NEEDLES) 32 GAUGE X 5/32" NDLE Use as directed, 1x daily, DX:E11.9 KCL 20 MEQ TABLET Take 2 tablets by mouth 3 (three) times daily for 30 days. MAGNESIUM OXIDE 400 MG MAGNESIUM TAB Take 1 tablet by mouth daily. METFORMIN ER 500 MG 24 HR TABLET Take 1 tablet by mouth daily with breakfast. METHOCARBAMOL 750 MG TABLET Take 750 mg by mouth 2 (two) times daily. METOLAZONE 2.5 MG TABLET Take 1 tablet by mouth every Friday, Friday and Friday. NITROGLYCERIN (NITROSTAT) 0.[address] 1 tablet under the tongue every 5 (five) minutes as needed for Chest pain. ONDANSETRON (ZOFRAN ODT) 4 MG DISINTEGRATING TABLET Take 1 tablet by mouth every 8 (eight) hoursas needed for Nausea and Vomiting (N/V). PANTOPRAZOLE 40 MG EC TABLET Take 1 tablet by mouth 2 (two) times daily. POLYETHYLENE GLYCOL (MIRALAX) 17 GRAM/DOSE POWDER Take 17 g by mouth daily. PROMETHAZINE 25 MG TABLET TAKE 1 TABLET BY MOUTH EVERY SIX HOURS NEEDED FOR NAUSEA OR VOMITING PYRIDOXINE HCL, VITAMIN B6, (VITAMIN B-6 ORAL) Take by mouth. RANOLAZINE 1,000 MG TABLET Take 1 tablet by mouth 2 (two) times daily. TESTOSTERONE (ANDROGEL) 20.25 MG/1.25 GRAM (1.62 %) GEL PUMP Apply 2 Pumps to area(s) daily. WARFARIN 10 MG TABLET Take as directed by [facility] based on INR results. WARFARIN 7.5 MG TABLET Take as directed by [facility] based on INR results. ZINC ORAL Take by mouth every other day. START taking Modified Medications as Prescribed No medications on file STOP taking these medications NYSTATIN 100,000 UNIT/GRAM POWDER Apply to area(s) 2 (two) times daily. UREA 40 % CREAM Apply to area(s) daily. Social History Socioeconomic History Marital status: Spouse [...] file Gets together: Not on file Attends mormonism service: Not on file Active member of [...] Lives at home with . Family History Problem Relation Age of Onset Hypertension Father High cholesterol Father Asthma Father CHF (congestive heart failure) Father COPD (chronic obstructive pulmonary disease) Father Leukemia Father Hypertension Mother High cholesterol Mother Cancer Paternal Grandmother unsure which kind Leukemia Maternal Uncle OB History No data available Review of systems: A 10 point review of systems is completed and is negative except for as above in interim history. OBJECTIVE Vitals: 08/24/19 0934 BP: 104/75 Pulse: 88 Resp: 16 Temp: 36.2 C (97.2 F) TempSrc: Oral SpO2: 100% Weight: 286 lb 13.1 oz (130.1 kg) Height: 5' 6.5" (1.689 m) Physical examination: Performance status: ECOG 1 General: NAD HEENT: anicteric Neck: Supple, no lymphadenopathy. Chest: Coarse to auscultation bilaterally, no rales, rhonchi, wheezes. Cardiovascular: Regular rate and rhythm, no murmurs, rubs, gallops. Abdomen: Soft, nontender, nondistended, positive bowel sounds. Extremities: Warm, no edema. Neuro: Alert and oriented 3, no gross deficits noted. Skin: no lesions Psych: calm affect Laboratory/Imaging: Reviewed previous labs in [facility]. XR CHEST 2 VW Narrative: ORDERING CLINICIAN: HAIDER MELVIN TECHNIQUE: 2 views of the chest were obtained. INDICATION: Chest pain COMPARISON: CT chest 06/21/2019 DISCUSSION: There is moderate cardiomegaly without fluid overload. There is a left-sided cardiac device in stable position. There are no focal consolidations, pleural effusions or pneumothoraces. The airway is midline. The mediastinal contour is normal. Impression: No acute cardiopulmonary disease RL: [id number] AF: [id number] End of report SSMENT/PLAN John Paul Nelson is a 49 year old male with a PMH of HTN, HLD, DM, anxiety, depression, AAA, DJD, CHF, CAD s/p stent, TIA, RBBB, bradycardia s/p PPM, Hyperaldosteronism, CKD II-III, pernicious anemiaon Q2 weeks B12, iron deficiency anemia needing iron infusions 2017, kidney stones s/p lithotripsy, l martine nodule, 1 episode of atrial fibrillation 2015, pulmonary embolism 09/2017 who presents for anticoagulation recommendations. Additionally, he is being referred to rule out amyloidosis as a reason forthe diastolic CHF. # Diastolic CHF and CKD, concern for amyloidosis - Negative endomyocardial biopsy and negative SPEP. The mild K/L ratio elevation is likely from the renal dysfunction rather than true light chain disease. - Based on the above no major suspicion for amyloid cardiomyopathy. # Pulmonary embolus, single episode 2018 - Had hypercoagulable workup that showed DRVVT screen and PTT-LA to be positive in 07/2018. However these were never repeated nor the abs tested. - Factor V leiden and prothrombin promoter mutations negative. - Will complete hypercoag workup by repeat APL testing, protein C S and ATIII. - If positive, he is committed to lifelong AC. - Even if negative, I have discussed obesity, male gender, h/o VTE, relative inactivity to be risk factors for future clots and may warrant atleast prophylaxis AC given his high risk. - Continue coumadin for now. - RTC 3 months # Chronic microcytosis without anemia: - ?thal trait vs subclinical anemia. - Will get iron studies, B12, folate, retic, LDH, CRP # Supportive Care - Pain: 4-5/10 back pain from arthritis, chronic - Plan for Pain: Managed by PCP - Constipation: discussed patient can use OTC laxatives and stool softeners as needed. - Emotional Distress: No current issues. - Management of any chronic conditions per PCP and other consultants. # Counseling - Discussed indications for ER presentation. - Discussed management of obesity asa risk factor for VTE as well as other health issues. Discussed healthy diet and lifestyle changes. - Discussed use of compression stockings. # Code Status Not addressed this visit. Follow Up: Orders Placed This Encounter Procedures ELECTROPHORESIS, SERUM C-REACTIVE PROTEIN COMP. METABOLIC PANEL ([id number]) FERRITIN SERUM FOLATE IRON LACTATE DEHYDROGENASE VITAMIN B12, LEVEL URIC ACID THYROID STIMULATING HORMONE RHEUMATOID FACTOR PROSTATIC SPECIFIC ANTIGEN URINALYSIS MICROSCOPIC PHOSPHORUS CBC WITH DIFF FIBRINOGEN aPTT PROTHROMBIN TIME / INR RETICULOCYTES AUTOMATED SEDIMENTATION RATE ANTI-NUCLEAR ANTIBODY SCREEN HEPATITIS B SURFACE ANTIGEN HCV ANTIBODY HIV 1/2 AG-AB WITH REFLEX ERYTHROPOIETIN, LEVEL ZINC, BLOOD COPPER, BLOOD DIFF CONSULT BY PATHOLOGIST IMMUNOFIXATION, SERUM [place]-[facility] Quant. FLC with Ratio HEMOGLOBINOPATHY EVALUATION LUPUS ANTICOAGULANT EVALUATION ANTICARDIOLIPIN ANTIBODIES ANTI-B2 GLYCOPROTEIN I AB F5 LEIDEN AND F2 [id number] MUTATIONS PROTEIN C ANTIGEN PROTEIN C ACTIVITY PROTEIN S ACTIVITY ANTITHROMBIN ANTIGEN ANTITHROMBIN ACTIVITY PATIENT EDUCATION: The plan was discussed in detail with the patient who is in agreement. All questions were answered to the patient's satisfaction. Patient is to call us with any new questions or concerns and present to the nearest Emergency Center for any concerning symptoms including but not limited to fevers greater than 100.5, shaking chills, chest pain, new shortness of breath, severe pain, uncontrolled hypertension, uncontrolled diarrhea/vomiting, spontaneous bleeding, confusion, near syncope, or any other symptom that should concern the patient or family. Spent 45 mins in the care of the patient with greater than 50% of time spent on patient education, counseling, and coordination of care. Lincoln Griffiths MD associate professor of literacy, Department of Hematology/Oncology, [facility]. Phn: [phone] Kristin Masterson RN - 08/24/2019 9:40 AM CST Vitals: 08/24/19 0934 BP: 104/75 Pulse: 88 Resp: 16 Temp: 36.2 C (97.2 F) TempSrc: Oral SpO2: 100% Weight: 286 lb 13.1 oz (130.1 kg) Height: 5' 6.5" (1.689 m) Vitals taken and documented. Medication list and allergies reconciled with patient . Awake, alert and oriented x3. ROS: bruising from Warfarin documented in this encounter Plan of Treatment Date Type Specialty Care Team Description 08/27/2019 Office Visit Cardiology Vonda Kaur, FURNITURE SPRAYER [id number] [place], [place] [id number] Practitioner, Heart Failure Nurse 08/27/2019 Nurse Visit Anti-coagulation Clinic Nurse, Vtc Antico ag 08/27/2019 Office Visit Gastroenterology Jorge Luis Mccarty MD [address] [place] [id number] 09/09/2019 Office Visit Psychiatry Mendez Martinez MD [address] [place] [id number] 09/09/2019 Office Visit Internal Medicine Lilibeth Andrade MD [address] [address] [phone] 10/12/2019 Office Visit Internal Medicine Lilibeth Andrade MD [address] [address] [phone] 10/19/2019 Office Visit Endocrinology Diabetes & JonesTre MD [address] [place] [address] [phone] 10/27/2019 Office Visit Pulmonary Disease Max Aguiar MD [address] [place] [address] 77 15 [phone] 11/02/2019 Office Visit Internal Medicine Lilibeth Andrade MD [address] [place] [address] 77 15 [phone] 12/02/2019 Appointment Cardiac Electrophysiology Outpt-Simi, Pacemaker/Icd 12/02/2019 Office Visit Oncology Lincoln Griffiths MD [address] [place], [place] [address] [phone] 12/08/2019 Office Visit Ophthalmology Yariel Tineo MD [address] [facility] [place], [place] [address] 02/08/2020 Office Visit Cardiology Robert Adkins MD [address] [place], [place] [address] Name Type Priority Associated Diagnoses Date/Ti me PROTEIN C ANTIGEN LAB Routine Other elevated white bl ood 08/24/2019 11:12 AM OFFICE ASSISTANT RECEPTIONIST cell (WBC) count Iron deficiency anemia, unspecified iron deficiency anemia type Chronic diastolic congestive heart failure Stage 2 chronic kidney disease Pulmonary embolism, unspecified chronicity, unspecified pulmonary embolism type, unspecified whether acute cor pulmonale present Name Type Priority Associated Diagnoses Order S chedule ELECTROPHORESIS, SERUM LAB Routine Other elevated whi te Expected: blood cell (WBC) count 11/23/2019, Expires: Iron deficiency anemia, 08/2020 unspecified iron deficiency anemi a type Chronic diastolic congestive heart failure Stage 2 chronic kidney disease Pulmonary embolism, unspecified chronicity, unspecified pulmonary embolism type, unspecified whether acute cor pulmonale present C-REACTIVE PROTEIN LAB Routine Other elevated white E xpected: blood cell (WBC) count 11/23/2019, Expires: Iron deficiency anemia, 08/2020 unspecified iron deficiency anemi a type Chronic diastolic congestive heart failure Stage 2 chronic kidney disease Pulmonary embolism, unspecified chronicity, unspecified pulmonary embolism type, unspecified whether acute cor pulmonale present COMP. METABOLIC PANEL LAB Routine Other elevated whit e Expected: ([id number]) blood cell (WBC) count 11/23/2019, Expires: Iron deficiency anemia, 08/2020 unspecified iron deficiency anemi a type Chronic diastolic congestive heart failure Stage 2 chronic kidney disease Pulmonary embolism, unspecified chronicity, unspecified pulmonary embolism type, unspecified whether acute cor pulmonale present FERRITIN SERUM LAB Routine Other elevated white Expec vale: blood cell (WBC) count 11/23/2019, Expires: Iron deficiency anemia, 08/2020 unspecified iron deficiency anemi a type Chronic diastolic congestive heart failure Stage 2 chronic kidney disease Pulmonary embolism, unspecified chronicity, unspecified pulmonary embolism type, unspecified whether acute cor pulmonale present FOLATE LAB Routine Other elevated white Expecte d: blood cell (WBC) count 11/23/2019, Expires: Iron deficiency anemia, 08/2020 unspecified iron deficiency anemi a type Chronic diastolic congestive heart failure Stage 2 chronic kidney disease Pulmonary embolism, unspecified chronicity, unspecified pulmonary embolism type, unspecified whether acute cor pulmonale present IRON LAB Routine Other elevated white Expecte d: blood cell (WBC) count 11/23/2019, Expires: Iron deficiency anemia, 08/2020 unspecified iron deficiency anemi a type Chronic diastolic congestive heart failure Stage 2 chronic kidney disease Pulmonary embolism, unspecified chronicity, unspecified pulmonary embolism type, unspecified whether acute cor pulmonale present LACTATE DEHYDROGENASE LAB Routine Other elevated whit e Expected: blood cell (WBC) count 11/23/2019, Expires: Iron deficiency anemia, 08/2020 unspecified iron deficiency anemi a type Chronic diastolic congestive heart failure Stage 2 chronic kidney disease Pulmonary embolism, unspecified chronicity, unspecified pulmonary embolism type, unspecified whether acute cor pulmonale present VITAMIN B12, LEVEL LAB Routine Other elevated white E xpected: blood cell (WBC) count 11/23/2019, Expires: Iron deficiency anemia, 08/2020 unspecified iron deficiency anemi a type Chronic diastolic congestive heart failure Stage 2 chronic kidney disease Pulmonary embolism, unspecified chronicity, unspecified pulmonary embolism type, unspecified whether acute cor pulmonale present URIC ACID LAB Routine Other elevated white Expecte d: blood cell (WBC) count 11/23/2019, Expires: Iron deficiency anemia, 08/2020 unspecified iron deficiency anemi a type Chronic diastolic congestive heart failure Stage 2 chronic kidney disease Pulmonary embolism, unspecified chronicity, unspecified pulmonary embolism type, unspecified whether acute cor pulmonale present THYROID STIMULATING HORMONE LAB Routine Other elevate d white Expected: blood cell (WBC) count 11/23/2019, Expires: Iron deficiency anemia, 08/2020 unspecified iron deficiency anemi a type Chronic diastolic congestive heart failure Stage 2 chronic kidney disease Pulmonary embolism, unspecified chronicity, unspecified pulmonary embolism type, unspecified whether acute cor pulmonale present RHEUMATOID FACTOR LAB Routine Other elevated white Ex pected: blood cell (WBC) count 11/23/2019, Expires: Iron deficiency anemia, 08/2020 unspecified iron deficiency anemi a type Chronic diastolic congestive heart failure Stage 2 chronic kidney disease Pulmonary embolism, unspecified chronicity, unspecified pulmonary embolism type, unspecified whether acute cor pulmonale present PROSTATIC SPECIFIC ANTIGEN LAB Routine Other elevated white Expected: blood cell (WBC) count 11/23/2019, Expires: Iron deficiency anemia, 08/2020 unspecified iron deficiency anemi a type Chronic diastolic congestive heart failure Stage 2 chronic kidney disease Pulmonary embolism, unspecified chronicity, unspecified pulmonary embolism type, unspecified whether acute cor pulmonale present URINALYSIS MICROSCOPIC LAB Routine Other elevated whi te Expected: blood cell (WBC) count 11/23/2019, Expires: Iron deficiency anemia, 08/2020 unspecified iron deficiency anemi a type Chronic diastolic congestive heart failure Stage 2 chronic kidney disease Pulmonary embolism, unspecified chronicity, unspecified pulmonary embolism type, unspecified whether acute cor pulmonale present PHOSPHORUS LAB Routine Other elevated white Expecte d: blood cell (WBC) count 11/23/2019, Expires: Iron deficiency anemia, 08/2020 unspecified iron deficiency anemi a type Chronic diastolic congestive heart failure Stage 2 chronic kidney disease Pulmonary embolism, unspecified chronicity, unspecified pulmonary embolism type, unspecified whether acute cor pulmonale present CBC WITH DIFF LAB Routine Other elevated white Expect ed: blood cell (WBC) count 11/23/2019, Expires: Iron deficiency anemia, 08/2020 unspecified iron deficiency anemi a type Chronic diastolic congestive heart failure Stage 2 chronic kidney disease Pulmonary embolism, unspecified chronicity, unspecified pulmonary embolism type, unspecified whether acute cor pulmonale present FIBRINOGEN LAB Routine Other elevated white Expecte d: blood cell (WBC) count 11/23/2019, Expires: Iron deficiency anemia, 08/2020 unspecified iron deficiency anemi a type Chronic diastolic congestive heart failure Stage 2 chronic kidney disease Pulmonary embolism, unspecified chronicity, unspecified pulmonary embolism type, unspecified whether acute cor pulmonale present aPTT LAB Routine Other elevated white Expecte d: blood cell (WBC) count 11/23/2019, Expires: Iron deficiency anemia, 08/2020 unspecified iron deficiency anemi a type Chronic diastolic congestive heart failure Stage 2 chronic kidney disease Pulmonary embolism, unspecified chronicity, unspecified pulmonary embolism type, unspecified whether acute cor pulmonale present PROTHROMBIN TIME / INR LAB Routine Other elevated whi te Expected: blood cell (WBC) count 11/23/2019, Expires: Iron deficiency anemia, 08/2020 unspecified iron deficiency anemi a type Chronic diastolic congestive heart failure Stage 2 chronic kidney disease Pulmonary embolism, unspecified chronicity, unspecified pulmonary embolism type, unspecified whether acute cor pulmonale present RETICULOCYTES AUTOMATED LAB Routine Other elevated wh ite Expected: blood cell (WBC) count 11/23/2019, Expires: Iron deficiency anemia, 08/2020 unspecified iron deficiency anemi a type Chronic diastolic congestive heart failure Stage 2 chronic kidney disease Pulmonary embolism, unspecified chronicity, unspecified pulmonary embolism type, unspecified whether acute cor pulmonale present SEDIMENTATION RATE LAB Routine Other elevated white E xpected: blood cell (WBC) count 11/23/2019, Expires: Iron deficiency anemia, 08/2020 unspecified iron deficiency anemi a type Chronic diastolic congestive heart failure Stage 2 chronic kidney disease Pulmonary embolism, unspecified chronicity, unspecified pulmonary embolism type, unspecified whether acute cor pulmonale present ANTI-NUCLEAR ANTIBODY SCREEN LAB Routine Other elevat ed white Expected: blood cell (WBC) count 11/23/2019, Expires: Iron deficiency anemia, 08/2020 unspecified iron deficiency anemi a type Chronic diastolic congestive heart failure Stage 2 chronic kidney disease Pulmonary embolism, unspecified chronicity, unspecified pulmonary embolism type, unspecified whether acute cor pulmonale present HEPATITIS B SURFACE ANTIGEN LAB Routine Other elevate d white Expected: blood cell (WBC) count 11/23/2019, Expires: Iron deficiency anemia, 08/2020 unspecified iron deficiency anemi a type Chronic diastolic congestive heart failure Stage 2 chronic kidney disease Pulmonary embolism, unspecified chronicity, unspecified pulmonary embolism type, unspecified whether acute cor pulmonale present HCV ANTIBODY LAB Routine Other elevated white Expecte d: blood cell (WBC) count 11/23/2019, Expires: Iron deficiency anemia, 08/2020 unspecified iron deficiency anemi a type Chronic diastolic congestive heart failure Stage 2 chronic kidney disease Pulmonary embolism, unspecified chronicity, unspecified pulmonary embolism type, unspecified whether acute cor pulmonale present HIV 1/2 AG-AB WITH REFLEX LAB Routine Other elevated white Expected: blood cell (WBC) count 11/23/2019, Expires: Iron deficiency anemia, 08/2020 unspecified iron deficiency anemi a type Chronic diastolic congestive heart failure Stage 2 chronic kidney disease Pulmonary embolism, unspecified chronicity, unspecified pulmonary embolism type, unspecified whether acute cor pulmonale present ERYTHROPOIETIN, LEVEL LAB Routine Other elevated whit e Expected: blood cell (WBC) count 11/23/2019, Expires: Iron deficiency anemia, 08/2020 unspecified iron deficiency anemi a type Chronic diastolic congestive heart failure Stage 2 chronic kidney disease Pulmonary embolism, unspecified chronicity, unspecified pulmonary embolism type, unspecified whether acute cor pulmonale present ZINC, BLOOD LAB Routine Other elevated white Expecte d: blood cell (WBC) count 11/23/2019, Expires: Iron deficiency anemia, 08/2020 unspecified iron deficiency anemi a type Chronic diastolic congestive heart failure Stage 2 chronic kidney disease Pulmonary embolism, unspecified chronicity, unspecified pulmonary embolism type, unspecified whether acute cor pulmonale present COPPER, BLOOD LAB Routine Other elevated white Expect ed: blood cell (WBC) count 11/23/2019, Expires: Iron deficiency anemia, 08/2020 unspecified iron deficiency anemi a type Chronic diastolic congestive heart failure Stage 2 chronic kidney disease Pulmonary embolism, unspecified chronicity, unspecified pulmonary embolism type, unspecified whether acute cor pulmonale present DIFF CONSULT BY PATHOLOGIST LAB Routine Other elevate d white Expected: blood cell (WBC) count 11/23/2019, Expires: Iron deficiency anemia, 08/2020 unspecified iron deficiency anemi a type Chronic diastolic congestive heart failure Stage 2 chronic kidney disease Pulmonary embolism, unspecified chronicity, unspecified pulmonary embolism type, unspecified whether acute cor pulmonale present IMMUNOFIXATION, SERUM LAB Routine Other elevated whit e Expected: blood cell (WBC) count 11/23/2019, Expires: Iron deficiency anemia, 08/2020 unspecified iron deficiency anemi a type Chronic diastolic congestive heart failure Stage 2 chronic kidney disease Pulmonary embolism, unspecified chronicity, unspecified pulmonary embolism type, unspecified whether acute cor pulmonale present [place] with LAB Routine Other elevat ed white Expected: Ratio blood cell (WBC) count 11/23/2019, Expires: Iron deficiency anemia, 08/2020 unspecified iron deficiency anemi a type Chronic diastolic congestive heart failure Stage 2 chronic kidney disease Pulmonary embolism, unspecified chronicity, unspecified pulmonary embolism type, unspecified whether acute cor pulmonale present HEMOGLOBINOPATHY EVALUATION LAB Routine Other elevate d white Expected: blood cell (WBC) count 11/23/2019, Expires: Iron deficiency anemia, 08/2020 unspecified iron deficiency anemi a type Chronic diastolic congestive heart failure Stage 2 chronic kidney disease Pulmonary embolism, unspecified chronicity, unspecified pulmonary embolism type, unspecified whether acute cor pulmonale present LUPUS ANTICOAGULANT LAB Routine Other elevated white Expected: EVALUATION blood cell (WBC) count 11/23/2019, Expires: Iron deficiency anemia, 08/2020 unspecified iron deficiency anemi a type Chronic diastolic congestive heart failure Stage 2 chronic kidney disease Pulmonary embolism, unspecified chronicity, unspecified pulmonary embolism type, unspecified whether acute cor pulmonale present ANTICARDIOLIPIN ANTIBODIES LAB Routine Other elevated white Expected: blood cell (WBC) count 11/23/2019, Expires: Iron deficiency anemia, 08/2020 unspecified iron deficiency anemi a type Chronic diastolic congestive heart failure Stage 2 chronic kidney disease Pulmonary embolism, unspecified chronicity, unspecified pulmonary embolism type, unspecified whether acute cor pulmonale present ANTI-B2 GLYCOPROTEIN I AB LAB Routine Other elevated white Expected: blood cell (WBC) count 11/23/2019, Expires: Iron deficiency anemia, 08/2020 unspecified iron deficiency anemi a type Chronic diastolic congestive heart failure Stage 2 chronic kidney disease Pulmonary embolism, unspecified chronicity, unspecified pulmonary embolism type, unspecified whether acute cor pulmonale present PROTEIN C ANTIGEN LAB Routine Other elevated white Ex pected: blood cell (WBC) count 08/24/2019, Expires: Iron deficiency anemia, 08/2020 unspecified iron deficiency anemi a type Chronic [...] Insurance / Financial) CREATININE (SERUM) 08/24/2020 08/25/2019, 08/25/2019, 08/25/2019, Additional history exists COLONOSCOPY 04/22/2027 04/22/2017 DTaP,Tdap,and Td Vaccines 06/26/2027 06/26/2017, 03/19/2015 Postponed from (1 - Tdap) 1980 (Not Indicated) documented as of this encounter Implants Implanted Type Area Certified Nurse Device Shelf Model / Identifier Expiration Serial / Date Lot Prolene Mesh MESH Right: Ethicon 12/20/2020 PMSK / Implanted: Qty: 1 on 07/04/2016 by Alfonso Martinez MD at [facility] [employer] PMSK / [id number] Pacemaker PACEMAKER Stent-06/24/2016 Implanted: 06/24/2016 (Quantity not on file) documented as of this encounter Results ANTITHROMBIN ACTIVITY (08/24/2019 11:12 AM OFFICE ASSISTANT RECEPTIONIST) Pathologist Sig nature ANTITHROMBIN ACTIVITY 99 83 - 128 % [facility] VICES Specimen Blood - ARM, LEFT Performing Organization Address City/[facility]/Zipcode Phone Number [facility] CLIA: [id number], [address] [place] [address] [phone] [facility] PROTEIN S ACTIVITY (08/24/2019 11:12 AM OFFICE ASSISTANT RECEPTIONIST) Pathologist Sig nature PROTEIN S ACTIVITY 79 64 - 149 % [facility] ES Specimen Blood - ARM, LEFT Narrative Performed At Age and hormonal status may affect the normal range fo r [facility] females (particularly during ). Test should n ot be ordered in patients on Coumadin as it can decrease Pro tein C and S levels. Additional studies should be conducted t o determine the source of unexpected abnormal results. Performing Organization Address City/State/Zipcode Phone Number [facility] CLIA: [id number], [address] [place] [address] [phone] [facility] PROTEIN C ACTIVITY (08/24/2019 11:12 AM OFFICE ASSISTANT RECEPTIONIST) Pathologist Sig nature PROTEIN C ACTIVITY 52 (L) 70 - 140 % [facility] Specimen Blood - ARM, LEFT Narrative Performed At Test should not be ordered in patients on Coumadin as it can [facility] decrease Protein C and S levels. Protein C activity is low in neonates and infants and increases to adult levels during adolescence. Additional studies should be conducted to determine the source of unexpected abnormal results. Performing Organization Address City/State/Zipcode Phone Number [facility] CLIA: [id number], [address] [place], [place] [address] documented in this encounter Visit Diagnoses Diagnosis Pulmonary embolism, unspecified chronici ty, unspecified pulmonary embolism type, unspecified whether acute cor pulmonale present - Primary Other elevated white blood cell (WBC) co unt Iron deficiency anemia, unspecified iron deficiency anemia type Chronic diastolic congestive heart failu re Chronic diastolic heart failure Stage 2 chronic kidney disease documented in this encounter Insurance Payer Benefit Plan / Subscriber ID Effective Phone Address T e Group Dates [facility] [id number] 2017-Lux [phone] [address] [facility] [employer] [facility] [phone] [place] [address] (Home) [place] [address] documented as of this encounter Advance Directives Name Relationship Healthcare Agent Communication Relationship Keaton Nelson Spouse Primary healthcare agent Elisabeth Soliz Sibling First alternate healthcare [phone] agent (Mobile)
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
--- OUTSIDE RECORDS SUMMARY | 2019-11-07 22:24 | XMS REPORT | Summary of Care ---
:1970 Author Organization [facility] Address [address] [place] [address] Care Team Providers Name Role Phone Elmer Andrade MD Primary Care Provider NAVJOT Espinoza Unavailable Unavailable MD Rocco Unavailable Mary Quezada MD Unavailable Genna Anand SHIPPING SPECIALIST Unavailable Unavailable MD Casimiro Unavailable Ricardo Rodriguez DO Manipulator Operator Reason for Visit Reason Comments Orders lab orders Talk To Nurse Encounter Details Date Type Department Care Team Description 08/26/2019 Telephone [facility] Cardiology- Robert Adkins (lab orders); Lilly MD Namita Talk To Nurse [address] [place] [address] [id number] Allergies Active Allergy Reactions Severity Noted Date [...] as of this encounter (statuses as of 08/27/2019) Medications Medication Sig Dispensed Refills Start Date [...] needed for Nausea and Vomiting (N/V). Insulin Miracle, Use as directed, 1x 100 Each 1 [...] as of this encounter (statuses as of 08/27/2019) Active Problems Problem Noted Date Acute hypokalemia [...] Added automatically from request for lillian lawson [id number] Syncope 04/01/2017 Chest pain, rule out acute [...] Chest pain 06/12/2016 Coronary artery disease involving [place] coronary briseyda ry of [place] heart 06/12/2016 with angina pectoris [place] (myocardial infarction) 06/12/2016 Type 2 diabetes mellitus without complication 06/12/20 16 Essential hypertension 06/12/2016 History of alcohol abuse Overview: Sober for 16 years documented as of this encounter (statuses as of 08/27/2019) Resolved Problems Problem Noted Date Resolved Date Chest pain radiating to arm 08/08/2016 08/19/2016 Abdominal pain 07/19/2016 08/19/2016 History of epidural anesthesia 07/04/2016 7 Morbid obesity with body mass index of 50 or higher 06/26/19 17 08/19/2016 Obesity (BMI 30-39.9) 06/12/2016 08/19/2016 documented as of this encounter (statuses as of 08/27/2019) Immunizations Name Administration Dates Next Due Td [...] Team Description 08/27/2019 Office Visit Cardiology Vonda Kaur n, SHIPPING SPECIALIST [address] [place] [address] [phone] Practitioner, Heart Failure Nurse 08/27/2019 Nurse Visit Anti-coagulation Clinic Nurse, Vtc Antico ag 08/27/2019 Office Visit Gastroenterology Jorge Luis Mccarty MD [address] [place] [address] [phone] 09/09/2019 Office Visit Psychiatry Mendez Martinez MD [address] [place] [address]. [place] [phone] 09/09/2019 Office Visit Internal Medicine Lilibeth Andrade MD [address] [place] [address] 77 15 [phone] 10/12/2019 Office Visit Internal Medicine Lilibeth Andrade MD [address] [place] [address] 77 15 10/19/2019 Office Visit Endocrinology Diabetes & JonesTre MD [address] [address] [phone] 10/27/2019 Office Visit Pulmonary Disease Max Aguiar MD [address] [place] [address] 77 15 [phone] 11/02/2019 Office Visit Internal Medicine Lilibeth Andrade MD [address] [place] [address] 77 15 [phone] 12/02/2019 Appointment Cardiac Electrophysiology Outpt-Simi, Pacemaker/Icd 12/02/2019 Office Visit Oncology Lincoln Griffiths MD [address] [place], [place] [address] [phone] 12/08/2019 Office Visit Ophthalmology Yariel Tineo MD [address] [place], [place] [address] 02/08/2020 Office Visit Cardiology Robert Adkins MD [address] [place], [place] [address] Health Maintenance Due Date [...] of this encounter Implants Implanted Type Area Booking Clerk Device Shelf Model / Identifier Expiration Serial / Date Lot Prolene Mesh MESH Right: Ethicon 12/20/2020 PMSK / Implanted: Qty: 1 on 07/04/2016 by Alfonso Martinez MD at [facility] [employer] PMSK / [id number] Pacemaker PACEMAKER Stent-06/24/2016 Implanted: 06/24/2016 (Quantity not on file) documented as of this encounter Results Not on filedocumented in this encounter Insurance Payer Benefit Plan / Subscriber ID Effective Phone Address T e Group Dates [facility] [id number] 2017-Lux [phone] [address] [employer] [facility] [employer] [facility] [phone] [place] [address] documented as of this encounter Advance Directives Name Relationship Healthcare Agent Communication Relationship Keaton Nelson Spouse Primary healthcare agent Elisabeth Soliz Sibling First [facility] healthcare [phone] agent (Mobile)
--- OUTSIDE RECORDS SUMMARY | 2019-11-07 22:25 | XMS REPORT | Summary of Care ---
:1970 Author Organization [facility] - [facility] Address [address] [place] [address] Care Team Providers Name Role Phone Elmer Andrade MD Primary Care Provider NAVJOT Espinoza Unavailable Unavailable MD Rocco Unavailable Mary Quezada MD Unavailable Genna Anand HAND STONE POLISHER Unavailable Unavailable MD Casimiro Unavailable Ricardo Rodriguez DO Chief Controller Tower Reason for Visit Reason Comments Follow-up Encounter Details Date Type Department Care Team Description 08/27/[address] [facility] POL[facility] [address] [facility] [id number] [place] [address] Chronic diastolic heart failure (Primary Dx); Cardiology-[place] Practitioner, Heart Failure Nurse Vitamin B12 deficiency [facility] [address] [facility], 6th [place] [address] Allergies Active Allergy Reactions Severity Noted Date [...] (two) Folliculitis times daily. ondansetron (ZOFRAN ODT) Take 1 tablet by 14 tablet 0 06/23/19 20 Active 4 mg disintegrating mouth every 8 tabletIndications: (eight) hours as Hyperglycemia needed for Nausea and Vomiting (N/V). Insulin Randolph, Use as directed, 100 Each 1 06/25/2019 [...] tablet mouth 2 (two) times daily. eplerenone 50 mg Take 1 tablet by 60 tablet 0 08/19/201909/17 Active tabletIndications: mouth 2 (two) Hypokalemia times daily for 30 days. KCL 20 mEq Take 2 tablets by 180 tablet 0 08/19/201909/17 Active tabletIndications: mouth 3 (three) Hypokalemia times daily for 30 days. aMILoride 5 mg Take 2 tablets by 120 tablet 0 08/25/2019 04 Active tabletIndications: mouth 2 (two) Hypokalemia times daily for 30 days. metOLazone 2.5 mg Take 1 tablet by 15 tablet 2 08/27/2019 Active tabletIndications: mouth 2 (two) Vitamin B12 deficiency times weekly on Friday and Friday. metOLazone 2.5 mg Take 1 tablet by 15 tablet 2 08/13/2019 03/ 6 Discontinued tabletIndications: mouth Vitamin B12 deficiency Friday, Friday and Friday. documented as of this encounter [...] Added automatically from request for lillian lawson [id number] Syncope 04/01/2017 Chest pain, rule out acute [...] of manzanita heart 06/12/2016 with angina pectoris PR (myocardial [...] Sign Reading Time Taken Comments Blood Pressure 110/72 08/27/2019 10:54 AM FELLING BUCKING SUPERVISOR Pulse 69 08/27/2019 10:54 AM FELLING BUCKING SUPERVISOR Temperature 36.7 C (98.1 F) 08/27/2019 10:54 AM FELLING BUCKING SUPERVISOR Respiratory Rate 16 08/27/2019 10:54 AM FELLING BUCKING SUPERVISOR Oxygen Saturation - - Inhaled Oxygen Concentration - - Weight 131.4 kg (289 lb 9.6 oz) 08/27/2019 10:54 AM FELLING BUCKING SUPERVISOR Height 177.8 cm (5' 10") 08/27/2019 10:54 AM FELLING BUCKING SUPERVISOR Body Mass Index 41.55 08/27/2019 10:54 AM FELLING BUCKING SUPERVISOR documented in this encounter Progress Notes Vonda Kaur FNP - 08/27/2019 10:30 AM CST HEART FAILURE CLINIC NOTE Reason for Referral/Presenting Complaint: Hospital follow up for HFpEF / hypokalemia History of Present Illness: This is a 49 years old male with PMH HFpEF, DM, HTN, obesity, GREGORIO, pAfib (on warfarin), CAD STEMI in11/2015 treated with RCA PCI, PE on coumadin and symptomatic bradycardia s/p pacemaker placement 10/07. He presents for hospital F/U with his . He was recently admitted for hypokalemia and was discharged on amiloride, eplerenone, and KCL. Metolazone was decreased to QMon/Fri. Today he reports feelingwell with baseline SCHILLING walking from parking garage. He reports weight has been stable at home 278 - 282 lb. He denies fatigue, cramps, swelling, CP, palpitations, or dizziness. He uses Mrs. Parker elliott to help keep potassium up. He reports compliance with fluid restrictions 1.5 L/day. HOSPITAL COURSE: 49 y/o male presents with [...] to f/u his creatinine, potassium and electrolytes. Past Medical History: Past Medical History: Diagnosis Date AAA (abdominal aortic aneurysm) 3 cm Anxiety CHF (congestive heart failure) 2-liter fluid restriction; Dr. Valiente is ecg technician Degenerative disc disease, lumbar on CT scan Depression Diabetes Hernia s/p surgery 06/2016 History of alcohol abuse Stopped 1999 History of pernicious anemia HLD (hyperlipidemia) Hypertension Kidney stones calcium oxalate Lung nodule largest was 7mm on CT scan in 07/2017. smoking history. will need repeat in 6-12 months. PR (myocardial infarction) November 2015, 1 stent in RCA Microcytic anemia low MCV 2016 Right bundle branch block Uveitis Current Medications: Current Outpatient Medications Medication Sig Dispense Refill aMILoride 5 mg tablet Take 2 tablets by mouth 2 (two) times daily for 30 days. 120 tablet 0 eplerenone 50 mg tablet Take 1 tablet by mouth 2 (two) times daily for 30 days. 60 tablet 0 KCL 20 mEq tablet Take 2 tablets by mouth 3 (three) times daily for 30 days. 180 tablet 0 metOLazone 2.5 mg tablet Take 1 tablet by mouth every Friday, Friday and Friday. 15 tablet 2 pantoprazole 40 mg EC tablet Take 1 [...] tablets by mouth daily. 60 tablet 1 Insulin Glargine (LANTUS SOLOSTAR U-100 INSULIN) 100 unit/mL (3 mL) injection inject 12-14 Unitsunder the skin daily. 3 mL 0 ondansetron (ZOFRAN ODT) 4 mg disintegrating tablet Take 1 tablet by mouth every 8 (eight) hoursas needed for Nausea and Vomiting (N/V). 14 tablet 0 cyanocobalamin (VITAMIN B-12) 1,000 mcg/mL injection 1 mL by Intramuscular route every 2 (two) weeks. 12 mL 3 PROMETHAZINE 25 mg tablet TAKE 1 TABLET BY MOUTH EVERY SIX HOURS NEEDED FOR NAUSEA OR VOMITING 30 tablet 11 hydrocortisone 2.5 % cream Apply to affected area(s) 2 (two) times daily. If Insurance does notcover the jar then give tubes of cream. 454 g 11 nitroglycerin (NITROSTAT) 0.[address] 1 tablet under the tongue every 5 (five) minutes as needed for Chest pain. 1 Bottle 1 ZINC ORAL Take by mouth every other day. Ranolazine 1,000 mg tablet Take 1 tablet by mouth 2 (two) times daily. 60 tablet 4 dulaglutide (TRULICITY) 0.75 mg/0.5 mL PnIj inject [...] times daily with meals. 270 tablet 3 warfarin 10 mg tablet Take as directed [...] by mouth daily.) 30 capsule 0 Insulin Randolph, Disposable, (RELION PEN NEEDLES) 32 gauge x 5/32" Ndle Use as directed, 1x daily, DX:E11.9 100 Each 1 clindamycin 1 % solution Apply to affected area(s) 2 (two) times daily. 60 mL 6 testosterone (ANDROGEL) 20.25 mg/1.25 gram (1.62 %) gel pump Apply 2 Pumps to area(s) daily. 75 g 3 No current facility-administered medications for this visit. [...] file Gets together: Not on file Attends jainism service: Not on file Active member of [...] Grandmother unsure which kind Leukemia Maternal Uncle Review of Systems: Other systems' components are negative except for what was mentioned above. Physical Examination: Vitals: 08/27/19 1054 BP: 110/72 Pulse: 69 Resp: 16 Temp: 36.7 C (98.1 F) Weight: 289 lb 9.6 oz (131.4 kg) Height: 5' 10" (1.778 m) Constitutional: awake and alert, not in any obvious distress ENT: normocephalic atraumatic, supple, no lymphadenopathy, no bruits Lungs: clear to auscultation bilaterally Cardiovascular: S1, S2 normal, regular; no murmurs, rubs or gallops GI: soft; non-tender; not distended; normoactive bowel sounds : not examined Musculoskeletal: Extremities: no clubbing, cyanosis. Trace non-pitting BLE edema. Skin: no rashes but hyperpigmented skin Neuro: no focal deficits Echocardiogram 05/03/19 LVIDd: 5.0 cm IVSd: 0.99 cm (0.6-1.1) LVPWd: 0.99 cm (0.7-1.1) LVIDs: 3.5 cm Ao root diam: 2.9 cm (2.0-3.7) LA dimension: 3.9 cm (1.9-4.0) Left Ventricle The left ventricle is normal in size. There is borderline concentric left ventricular hypertrophy. Left ventricular systolic function is normal. Ejection Fraction = 55-60%. Regional wall motion abnormalities cannot be excluded due to limited visualization. Right Ventricle The right ventricle is grossly normal size. The right ventricle is not well visualized. Atria The left atrial size is normal. Right atrium not well visualized. Mitral Valve The mitral valve is not well visualized. Tricuspid Valve The tricuspid valve is not well visualized. Insufficient Tricuspid regurgitation jet to estimate RVSP. Aortic Valve The aortic valve is not well visualized. The peak to peak aortic valve gradient measures 5.7 mmHg. The mean aortic valve gradient measures 2.8 mmHg. Pulmonic Valve The pulmonic valve is not well visualized. Great Vessels The aortic root is not well visualized. Interpretation Summary A two-dimensional transthoracic echocardiogram with M-mode and Doppler was performed. The study was technically difficult. Left ventricular systolic function is normal. Ejection Fraction = 55-60%. Regional wall motion abnormalities cannot be excluded due to limited visualization. Cardiac Cath: 11/2015--STEMI--RCA PCI with Promus 3.5 x 24 mm-----LAD 20%, LCx 40%, RCA 100% 11/2016--[facility] LM: mild LI LAD: mild LI, D1 [...] stent patent. -Aggressive medical rx for CAD. C 12/2017--No significant stenosis. Nuclear stress test--01/05/2019 IMPRESSION Left ventricular inferior wall has a moderate and severe deficit that is fixed, appears a scar from prior myocardial infarct. There is no reversible defect to suspect ischemia. Normal left ventricular function. Assessment/Plan: 1- Chronic HFpEF ( EF 55-60%), NYHA class III, stage C: - Euvolemic on exam and symptomatically stable - Continue lasix 80 mg BID - Continue Metolazone 2.5 mg PO QMon/Fri - BMP, NT-proBNP, Mag today; repeat labs on Friday (after taking metolazone on Friday) 2- CAD s/p RCA PCI 11/2015 - Recent stress test 01/05/19 negative - Several [facility] showed no significant stenosis. - Continue with plavix 75 mg daily - Continue with Lipitor 40 mg nightly - Continue with ranexa 1000 mg BID. 3- GREGORIO: -On C-PAP. 4- Afib / Bradycardia s/p pacemaker - Rate controlled 69 - Continue warfarin with target INR 2-3 in anticoag clinic - Continue routine PM checks 5-Hypokalemia - K 4.0 on discharge 08/25/19; repeat BMP today and again on Friday, as stated above - Continue amiloride 10 mg BID - Continue eplerenone 50 mg BID - Continue KCL 40 mEq TID - If hypokalemia persists, will arrange for standing potassium infusions in [place] Follow up in 3 months with MOTOR COACH TOUR OPERATOR clinic and in January as scheduled with Dr. Adkins. Education and Counseling Importance of medication compliance. Daily weights/blood pressures Low salt and low cholesterol diet Symptom notification shortness of breath and weight gain. Activity As tolerated Exercise As tolerated. Plan discussed in detail and all issues addressed. Provided opportunity to answer questions. Patientverbalized understanding of treatment plan. Vonda Kaur NP Heart Failure Cardiology [facility] O [phone] F [phone] E [email or web address] ING BUCKING SUPERVISOR documented in this encounter Plan of Treatment Date Type Specialty Care Team Description 08/27/2019 Barrel Lapper Visit Phlebotomy Jorge Luis Mccarty MD [address] [place] [address] [id number] Arrived [facility] 08/27/2019 Nurse Visit Anti-coagulation Clinic Nurse, [facility] Antico ag 08/27/2019 Office Visit Gastroenterology Ioana Mccarty MD [address] [place] [address] [phone] 09/09/2019 Office Visit Psychiatry Wilson CreekMendez MD [address] [place] [phone] 09/09/2019 Office Visit Internal Medicine Lilibeth Andrade MD [address] [place] [address] [phone] 10/12/2019 Office Visit Internal Medicine Lilibeth Andrade MD [address] [place] [address] 15 [phone] 10/19/2019 Office Visit Endocrinology Diabetes & JonesTre MD [address] [id number] 10/27/2019 Office Visit Pulmonary Disease Max Aguiar MD [address] [facility] [address] [place], [place] [address] [phone] 11/02/2019 Office Visit Internal Medicine Lilibeth Andrade MD [address] [facility] [address] [place], [place] [address] [phone] 11/30/2019 Office Visit Cardiology Practitioner, Heart Failure Nurse 12/02/2019 Appointment Cardiac Electrophysiology Outpt-Simi, Pacemaker/Icd 12/02/2019 Office Visit Oncology [place] Griffiths MD [address] [place], [place] [address] [phone] 12/08/2019 Office Visit Ophthalmology Yariel Tineo MD [address] [place], [place] [address]. [place], [place] [address] 02/08/2020 Office Visit Cardiology Robert Adkins MD [address] [facility] [address] [place], [place] [address] Name Type Priority Associated Diagnoses Order S chedule BASIC METABOLIC PANEL LAB Routine Chronic diastolic h eart Expected: 08/27/2019, ([id number])(NA, K, CL, CO2, failure Expi res: 08/26/2020 GLUCOSE, BUN, CREATININE, CA) MAGNESIUM LAB Routine Chronic diastolic heart Expe cted: 08/27/2019, failure Expires: 2020 N-TERMINAL PRO-BNP LAB Routine Chronic diastolic hear t Expected: 08/27/2019, failure Expires: 2020 BASIC METABOLIC PANEL LAB Routine Chronic diastolic h eart Expected: 08/27/2019, ([id number])(NA, K, CL, CO2, failure Expi res: 08/26/2020 GLUCOSE, BUN, CREATININE, CA) N-TERMINAL PRO-BNP LAB Routine Chronic diastolic hear t Expected: 08/27/2019, failure Expires: 03/06/ 2021 MAGNESIUM LAB Routine Chronic diastolic heart Expe cted: 08/27/2019, failure Expires: 2020 Health Maintenance Due Date Last Done Comments [...] of this encounter Implants Implanted Type Area Manager Call Center Device Shelf Model / Identifier Expiration Serial / Date Lot Prolene Mesh MESH Right: Ethicon 12/20/2020 PMSK / Implanted: Qty: 1 on 07/04/2016 by Alfonso Martinez MD at [facility] [employer] PMSK / [id number] Pacemaker PACEMAKER Stent-06/24/2016 Implanted: 06/24/2016 (Quantity not on file) documented as of this encounter Results Not on filedocumented in this encounter Visit Diagnoses Diagnosis Chronic diastolic heart failure - Primar y Vitamin B12 deficiency Other B-complex deficiencies documented in this encounter Insurance Payer Benefit Plan / Subscriber ID Effective Phone Address T ype Group Dates HIM [facility] [id number] 2017-Prese [phone] HMO HEALTH CHOICE HEALTH CHOICE [phone] [place] [address] (Home) [place] [address] documented as of this encounter Advance Directives Name Relationship Healthcare Agent Communication Relationship Keaton Nelson Spouse Primary healthcare agent Elisabeth Soliz Sibling First [facility] healthcare [phone] agent (Mobile)
--- OUTSIDE RECORDS SUMMARY | 2019-11-07 22:26 | XMS REPORT | Summary of Care ---
:1970 Author Organization [facility] Address [address] [place] [address] Care Team Providers Name Role Phone Elmer Andrade MD Primary Care Provider NAVJOT Espinoza Unavailable Unavailable MD Rocco Unavailable Mary Quezada MD Unavailable Genna Anand PLANT ATTENDANT Unavailable Unavailable MD Casimiro Unavailable Ricardo Rodriguez DO Licensing Director Reason for Visit Reason Comments Follow-up Encounter Details Date Type Department Care Team Description [facility]2019 [facility]END[facility] [address] [facility] [id number] [place] [address] Chronic diastolic heart failure (Primary Dx); Cardiology-[place] Practitioner, Heart Failure Nurse Vitamin B12 deficiency [facility] [address] [facility], 6th [place] [address] Allergies Active Allergy Reactions Severity [...] needed for Nausea and Vomiting (N/V). Insulin [place], Use as directed, 100 Each 1 06/25/2019 [...] Added automatically from request for lillian lawson [id number] Syncope 04/01/2017 Chest pain, rule out acute [...] Chest pain 06/12/2016 Coronary artery disease involving nondalton coronary briseyda ry of nondalton heart 06/12/2016 with angina pectoris [place] (myocardial [...] Comments Blood Pressure 110/72 08/27/2019 10:54 AM REHABILITATION THERAPY TECHNICIAN Pulse 69 08/27/2019 10:54 AM REHABILITATION THERAPY TECHNICIAN Temperature 36.7 C (98.1 F) 08/27/2019 10:54 AM REHABILITATION THERAPY TECHNICIAN Respiratory Rate 16 08/27/2019 10:54 AM REHABILITATION THERAPY TECHNICIAN Oxygen Saturation - - Inhaled Oxygen Concentration - - Weight 131.4 kg (289 lb 9.6 oz) 08/27/2019 10:54 AM REHABILITATION THERAPY TECHNICIAN Height 177.8 cm (5' 10") 08/27/2019 10:54 AM REHABILITATION THERAPY TECHNICIAN Body Mass Index 41.55 08/27/2019 10:54 AM REHABILITATION THERAPY TECHNICIAN documented in this encounter Progress Notes Vonda [...] failure) 2-liter fluid restriction; Dr. Valiente is first press operator Degenerative disc disease, lumbar on CT scan Depression Diabetes Hernia s/p surgery 06/2016 History of alcohol abuse Stopped 1999 History of pernicious anemia HLD (hyperlipidemia) Hypertension Kidney stones calcium oxalate Lung nodule largest was 7mm on CT scan in 07/2017. smoking history. will need repeat in 6-12 months. [place] (myocardial infarction) November 2015, 1 [...] by mouth daily.) 30 capsule 0 Insulin [place], Disposable, (RELION PEN NEEDLES) 32 gauge x [...] 24 mm-----LAD 20%, LCx 40%, RCA 100% 11/2016--[facility] LM: mild LI LAD: mild LI, [...] Recent stress test 01/05/19 negative - Several [facility] showed no significant stenosis. - [...] will arrange for standing potassium infusions in [place] Follow up in 3 months with WOOL TAMPER clinic and in January as scheduled with Dr. Adkins. Education and Counseling Importance of medication compliance. Daily weights/blood pressures Low salt and low cholesterol diet Symptom notification shortness of breath and weight gain. Activity As tolerated Exercise As tolerated. Plan discussed in detail and all issues addressed. Provided opportunity to answer questions. Patientverbalized understanding of treatment plan. Vonda Kaur NP Heart Failure Cardiology [facility] O [phone] F [phone] E [email or web address] BILITATION THERAPY TECHNICIAN documented in this encounter Plan of Treatment Date Type Specialty Care Team Description 08/27/2019 Nurse Visit Anti-coagulation Clinic Nurse, [facility] Antico ag 08/27/2019 Office Visit Gastroenterology Jorge Luis Mccarty MD [address] [place] [address] [phone] 09/09/2019 Office Visit Psychiatry Mendez Martinez MD [address] [place] [address]. [place] [phone] 09/09/2019 Office Visit Internal Medicine Lilibeth Andrade MD [address] [place] [address] 10/12/2019 Office Visit Internal Medicine Lilibeth Andrade MD [address] [place] [address] 15 10/19/2019 Office Visit Endocrinology Diabetes & Tre Jones MD Metabolism [address] [place] [address] [phone] 10/27/2019 Office Visit Pulmonary Disease Max Aguiar MD [address] [place] [address] [phone] 11/02/2019 Office Visit Internal Medicine Lilibeth Andrade MD [address] [facility] [address] [place], [place] [address] [phone] 11/30/2019 Office Visit Cardiology Practitioner, Heart Failure Nurse 12/02/2019 Appointment Cardiac Electrophysiology Outpt-Simi, Pacemaker/Icd 12/02/2019 Office Visit Oncology [place] Griffiths MD [address] [place], [place] [address] [phone] 12/08/2019 Office Visit Ophthalmology Yariel Tineo MD [address] [place], [place] [address]. [place], [place] [address] 02/08/2020 Office Visit Cardiology Robert Adkins MD [address] [place], [place] [address] Name Type Priority Associated Diagnoses Order S chedule BASIC METABOLIC PANEL LAB Routine Chronic diastolic h eart Expected: 08/27/2019, ([id number])(NA, K, CL, CO2, failure Expi res: 08/26/2020 GLUCOSE, BUN, CREATININE, CA) MAGNESIUM LAB Routine Chronic diastolic heart Expe cted: 08/27/2019, failure Expires: 2020 N-TERMINAL PRO-BNP LAB Routine Chronic diastolic hear t Expected: 08/27/2019, failure Expires: 2020 BASIC METABOLIC PANEL LAB Routine Chronic diastolic h eart Expected: 08/27/2019, ([id number])(NA, K, CL, CO2, failure Expi res: 08/26/2020 GLUCOSE, BUN, CREATININE, CA) N-TERMINAL PRO-BNP LAB Routine Chronic diastolic hear t Expected: 08/27/2019, failure Expires: 2020 MAGNESIUM LAB Routine Chronic diastolic heart Expe [...] of this encounter Implants Implanted Type Area Executive Chairman Device Shelf Model / Identifier Expiration Serial / Date Lot Prolene Mesh MESH Right: Ethicon 12/20/2020 PMSK / Implanted: Qty: 1 on 07/04/2016 by Alfonso Martinez MD at [facility] [employer] PMSK / [id number] Pacemaker PACEMAKER Stent-06/24/2016 Implanted: 06/24/2016 (Quantity not on file) documented as of this encounter Results Not on filedocumented in this encounter Visit Diagnoses Diagnosis Chronic diastolic heart failure - Primar y Vitamin B12 deficiency Other B-complex deficiencies documented in this encounter Insurance Payer Benefit Plan / Subscriber ID Effective Phone Address T ype Group Dates HIM [facility] [id number] 2017-Lux [phone] [employer] HEALTH CHOICE [id number] [place] [address] (Home) [place] [address] documented as of this encounter Advance Directives Name Relationship Healthcare Agent Communication Relationship Keaton Nelson Spouse Primary healthcare agent Elisabeth Soliz Sibling [facility] agent (Mobile)
--- OUTSIDE RECORDS SUMMARY | 2019-11-07 22:26 | XMS REPORT | Summary of Care ---
:1970 Author Organization [facility] - [facility] Address [address] [place] [address] Care Team Providers Name Role Phone Elmer Andrade MD Primary Care Provider NAVJOT Espinoza Unavailable Unavailable MD Rocco Unavailable Mary Quezada MD Unavailable Genna Anand Unavailable Unavailable MD Casimiro Unavailable Ricardo Rodriguez DO Cdl Team Truck Driver Reason for Visit Reason Comments Blood Draw Encounter Details Date Type Department Care Team Description 08/27/2019 Police Detective Visit ANCILLARY LABS Jorge Luis Mccarty MD [address] [place] [address] Chronic diastolic heart [facility]-Lab failure Allergies Active Allergy Reactions Severity Noted Date [...] Take 1 tablet by 90 tablet 3 09/04/2 019 Active tabletIndications: Type 2 mouth daily [...] needed for Nausea and Vomiting (N/V). Insulin [place], Use as directed, 1x 100 Each 1 [...] 0 20 Hypokalemia daily for 30 days. metOLazone 2.5 mg Take 1 tablet by 15 tablet 2 08/27/2019 Active tabletIndications: Vitamin mouth 2 (two) times B12 deficiency weekly on Friday and Friday. documented as of this [...] Added automatically from request for lillian lawson [id number] Syncope 04/01/2017 Chest pain, rule out acute [...] Chest pain 06/12/2016 Coronary artery disease involving [place] coronary briseyda ry of [place] heart 06/12/2016 with angina pectoris [place] (myocardial [...] Description 08/27/2019 Nurse Visit Anti-coagulation Clinic Nurse, Vtc Antico ag 08/27/2019 Office Visit Gastroenterology Jorge Luis Mccarty MD [facility] [place] [address] [phone] 09/09/2019 Office Visit Psychiatry Mendez Martinez MD [address] [place] [phone] 09/09/2019 Office Visit Internal Medicine Lilibeth Andrade MD [address] [place] [address] 77 15 [phone] 10/12/2019 Office Visit Internal Medicine Lilibeth Andrade MD [address] [place] [address] 77 15 10/19/2019 Office Visit Endocrinology Diabetes & JonesTre MD [address] [address] [phone] 10/27/2019 Office Visit Pulmonary Disease Max Aguiar MD [address] [place] [address] 77 15 [phone] 11/02/2019 Office Visit Internal Medicine Lilibeth Andrade MD [address] [place] [address] 77 15 11/30/2019 Office Visit Cardiology Practitioner, Heart Failure Nurse 12/02/2019 Appointment Cardiac Electrophysiology Outpt-Simi, Pacemaker/Icd 12/02/2019 Office Visit Oncology Lincoln Griffiths MD [address] [place], [place] [address] [phone] 12/08/2019 Office Visit Ophthalmology Yariel Tineo MD [address] [place], [place] [address], [place] [address] 02/08/2020 Office Visit Cardiology Robert Adkins MD [address] [place] [address] 555 Name Type Priority Associated Diagnoses Date/Ti me BASIC METABOLIC PANEL LAB Routine Chronic diastolic h eart 08/27/2019 11:54 AM AIR AND WATER TESTER (93738)(NA, K, CL, CO2, failure GLUCOSE, BUN, CREATININE, CA) N-TERMINAL PRO-BNP LAB Routine Chronic diastolic hear t 08/27/2019 11:54 AM AIR AND WATER TESTER failure MAGNESIUM LAB Routine Chronic diastolic heart 11/2019 11:54 AM AIR AND WATER TESTER failure Health Maintenance Due Date Last Done Comments [...] of this encounter Implants Implanted Type Area Machine Helper Device Shelf Model / Identifier Expiration Serial / Date Lot Prolene Mesh MESH Right: Ethicon 12/20/2020 PMSK / Implanted: Qty: 1 on 07/04/2016 by Alfonso Martinez MD at [facility] [employer] PMSK / [id number] Pacemaker PACEMAKER Stent-06/24/2016 Implanted: 06/24/2016 (Quantity not on file) documented as of this encounter Results Not on filedocumented in this encounter Visit Diagnoses Diagnosis Chronic diastolic heart failure documented in this encounter Insurance Payer Benefit Plan / Subscriber ID Effective Phone Address T ype Group Dates [facility] [id number] 2017-Lux [phone] [address] [employer] [id number] [place] [address] (Home) [place] [address] documented as of this encounter Advance Directives Name Relationship Healthcare Agent Communication Relationship Keaton Williamjanae Spouse Primary healthcare agent Elisabeth Soliz Sibling First alternate healthcare [phone] agent (Mobile)
--- OUTSIDE RECORDS SUMMARY | 2019-11-07 22:27 | XMS REPORT | Summary of Care ---
:1970 Author Organization [facility] - [facility] Address [address] [place] [address] Care Team Providers Name Role Phone Elmer Andrade MD Primary Care Provider NAVJOT Espinoza Unavailable Unavailable MD Rocco Unavailable Mary Quezada MD Unavailable Genna Anand EMPLOYEE'S REPRESENTATIVE Unavailable Unavailable MD Casimiro Unavailable Ricardo Rodriguez DO 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 Quality Reason for Visit Reason Comments PT/INR Encounter Details Date Type Department Care Team Description 08/27/2019 Nurse Visit [facility] Treva Andrade MD [address] [place] [address] [address] Anticoagulation management encounter; Tqdr-Klimsyatsuj-MJ Nurse, Vtc Anticoag Other pulmonary embolism without acute c or pulmonale, unspecified chronicity [facility] [place] [address] Allergies Active Allergy Reactions Severity [...] needed for Nausea and Vomiting (N/V). Insulin [place], Use as directed, 1x 100 Each 1 [...] Added automatically from request for lillian lawson [id number] Syncope 04/01/2017 Chest pain, rule out acute [...] Chest pain 06/12/2016 Coronary artery disease involving [place] coronary briseyda ry of [place] heart 06/12/2016 with angina pectoris NM (myocardial infarction) 06/12/2016 [...] in this encounter Patient Instructions Patient InstructionsDeepika Bagley, NAVJOT - 08/27/2019 3:00 PM MATERIAL HANDLER 2ND SHIFT Eat a serving of high Vit K food today then continue Vit K foods2-3 timesa week consistently. Change in Warfarin (Coumadin) dose: decrease dose to 45mg per week (using 10 mg tablets - white) Friday: 10mg Friday:5mg Friday:5 mg Friday: 10 mg :5mg Friday:5mg Friday: 5mg Repeat above schedule until you return for [...] your safety, please remember to call the [facility] if any of your current medications change dose, if you get new medications, or if medications are stopped. There may be interactions with medications that will increase your risk of bleeding or forming blood clots. When you call the clinic([phone]) we will advise you if your INR should be checked sooner than your next scheduled appointment or you may need to adjust your Vitamin K food intake. AntiCoag Clinic Contact Information [facility] Deepika [phone] [email or web address] Galdino Turner [phone] [email or web address] Manisha Quesada [phone] [email or web address] To schedule appts - [phone] Emergency Dial 911 or go to the nearest Emergency Room RIAL HANDLER 2ND SHIFT documented in this encounter Progress Notes Deepika Bagley RN - 08/27/2019 3:00 PM CST ANTI-COAGULATION CLINIC NOTE Anti-Coagulation diagnosis: ICD-10-CM ICD-9-CM 1. Anticoagulation management encounter Z51.81 V58.83 Z. V58.61 2. Other pulmonary embolism without acute cor pulmonale, unspecified chronicity I26.99 415.19 Warfarin (Coumadin) dose: 45mg per week (using 10 mg tablets - white) Friday: 10mg Friday:5mg Friday:5 mg Friday: 10 mg :5mg Friday:5mg Friday: 5mg Cognitive assessment: alert and oriented times 3 Finger stick performed using aseptic technique, sticking left hand, middle finger, and CoaguChek XS machine [id number] was used. Blood sample was obtained; Band aid was applied. Strip used today lot number: [id number] POCT PT/INR Date Value Ref Range Status 08/27/2019 2.9 (A) 0.8 - 1.4 INR Final POCT PT/SEC Date Value Ref Range Status 08/27/2019 34.6 SEC Final Anti-Coagulation diagnosis: ICD-10-CM ICD-9-CM 1. Anticoagulation management encounter Z51.81 V58.83 Z79. V58.61 2. Other pulmonary embolism without acute cor pulmonale, unspecified chronicity I26.99 415.19 Duration of Anticoagulation Therapy As of 08/27/2019 TTR: 65.9 % (11.5 mo) Target end date: Indefinite Target Range As of 08/27/2019 INR goal: 2.0-3.0 TTR: 65.9 % (11.5 mo) PT/INR within therapeutic range Pt stated no medication, supplement, vitamin, or herb has been added, deleted, or dose changed that would interact with warfarin since last AntiCoag Clinic visit. Pt will review and reconcile medication list at next PCP appointment. Patient verbalized understanding and agreement with the plan of care. Warfarin (Coumadin) dose: 45mg per week (using 10 mg tablets - white) Friday: 10mg Friday:5mg Friday:5 mg Friday: 10 mg :5mg Friday:5mg Friday: 5mg Patient notified: yes Patient verbalized understanding and agreement with the plan of care. Patient was provided with written and verbal educational information on August 27, 2019 regarding the interaction of warfarin with [...] Specialty Care Team Description 08/27/2019 Office Visit Gastroenterology Jorge Luis Mccarty MD [address] [place] [address] [phone] 09/06/2019 Nurse Visit Anti-coagulation Clinic Nurse, [facility] 09/09/2019 Office Visit Psychiatry Mendez Martinez MD [address] [place] [address]. [place] [address] 09/09/2019 Office Visit Internal Medicine Lilibeth Andrade MD [address] [place] [address] 77 15 [phone] 10/12/2019 Office Visit Internal Medicine Lilibeth Andrade MD [address] [place] [address]75 15 [phone] 10/19/2019 Office Visit Endocrinology Diabetes & Jones, Tre rodriguez MD Metabolism [address] [place] [address] [phone] 10/27/2019 Office Visit Pulmonary Disease Max Aguiar MD [address] [facility] [address] [place], [place] [address] [phone] 11/02/2019 Office Visit Internal Medicine Lilibeth Andrade MD [address] [facility] [address] [place], [place] [address] [phone] 11/30/2019 Office Visit Cardiology Practitioner, Heart Failure Nurse 12/02/2019 Appointment Cardiac Electrophysiology Outpt-Simi, Pacemaker/Icd 12/02/2019 Office Visit Oncology Lincoln Griffiths MD [address] [place], [place] [address] [phone] 12/08/2019 Office Visit Ophthalmology Yariel Tineo MD [address] [place] [address] [address] [place], [place] [address] 02/08/2020 Office Visit Cardiology Robert Adkins MD [address] [place], [place] [address] Name Type Priority Associated Diagnoses Order S chedule POCT LAB Routine Anticoagulation management 4 0 Occurrences starting PT/INR(COAGUCHEK) encounter 08/27/2019 until Other pulmonary embolism 11/2022, 1 completed without acute cor pulmonale, unspecified chronicity Health Maintenance Due Date Last Done Comments [...] this encounter Implants Implanted Type Area Technical Manager Device Shelf Model / Identifier Expiration Serial / Date Lot Prolene Mesh MESH Right: Ethicon 12/20/2020 PMSK / Implanted: Qty: 1 on 07/04/2016 by Alfonso Martinez MD at [facility] [employer] PMSK / [id number] Pacemaker PACEMAKER Stent-06/24/2016 Implanted: 06/24/2016 (Quantity not on file) documented as of this encounter Procedures Procedure Name Priority Date/Time Associated Diagnosis Comme nts POCT Routine 08/27/2019 Anticoagulation management R esults for this PT/INR(COAGUCHEK) encounter procedure are in Other pulmonary embolism the results without acute cor section. pulmonale, unspecified chronicity documented in this encounter Results POCT PT/INR(COAGUCHEK) (08/27/2019) Pathologist Sig nature POCT PT/INR 2.9 (A) 0.8 - 1.4 INR POCT PT/SEC 34.6 SEC Specimen Blood - CAPILLARY documented in this encounter Visit Diagnoses Diagnosis Anticoagulation management encounter Encounter for therapeutic drug monitorin g Other pulmonary embolism without acute c or pulmonale, unspecified chronicity documented in this encounter Insurance Payer Benefit Plan / Subscriber ID Effective Phone Address T ype Group Dates [facility] [id number] 2017-Lux [phone] HMO HEALTH CHOICE HEALTH CHOICE 86 [id number] [place] [address] (Home) [place] [address] documented as of this encounter Advance Directives Name Relationship Healthcare Agent Communication Relationship Keaton Williamjanae Spouse Primary healthcare agent Elisabeth Soliz Sibling First alternate healthcare [phone] agent (Mobile)
--- OUTSIDE RECORDS SUMMARY | 2019-11-07 22:28 | XMS REPORT | Summary of Care ---
:1970 Author Organization [facility] Address [address] [place] [address] Care Team Providers Name Role Phone Elmer Andrade MD Primary Care Provider NAVJOT Espinoza Unavailable Unavailable MD Rocco Unavailable Mary Quezada MD Unavailable Genna Anand Unavailable Unavailable MD Casimiro Unavailable Ricardo Rodriguez DO Case Consultant Reason for Visit Reason Comments LAB WORK Encounter Details Date Type Department Care Team Description 08/27/2019 Telephone [facility] Cardiology, Robert Adkins, LAB WORK [facility] [address] [place] [address] 301 [facility] [address] [place] [address] [place] [address] [phone] Allergies Active Allergy Reactions Severity Noted Date [...] needed for Nausea and Vomiting (N/V). Insulin [place], Use as directed, 1x 100 Each 1 [...] disorder, without psychotic features, Generalized anxiety disorder eplerenone 50 mg Take 1 tablet by [...] B12 deficiency weekly on Friday and Friday. pantoprazole 40 mg EC Take 1 tablet by 180 tablet 3 08/27/2019 Active tabletIndications: Hiatal mouth 2 (two) times hernia daily. documented as of this encounter (statuses [...] Added automatically from request for lillian lawson [id number] Syncope 04/01/2017 Chest pain, rule out acute [...] Chest pain 06/12/2016 Coronary artery disease involving [place] coronary briseyda ry of [place] heart 06/12/2016 with angina pectoris [place] (myocardial [...] Treatment Date Type Specialty Care Team Description 09/06/2019 Nurse Visit Anti-coagulation Clinic Nurse, Vtc Antico ag 09/09/2019 Office Visit Psychiatry Mendez Martinez MD [address] [place] [address]. [place] [phone] 09/09/2019 Office Visit Internal Medicine Lilibeth Andrade MD [address] [place] [address] [phone] 10/12/2019 Office Visit Internal Medicine Lilibeth Andrade MD [address] [place] [address] 15 10/19/2019 Office Visit Endocrinology Diabetes & JonesTre MD Metabolism [address] [place] [address] [phone] 10/27/2019 Office Visit Pulmonary Disease Max Aguiar MD [address] [facility] 106 [place], [place] [address] [phone] 11/02/2019 Office Visit Internal Medicine Lilibeth Andrade MD [address] [place] [address]75 15 11/30/2019 Office Visit Cardiology Practitioner, Heart Failure Nurse 12/02/2019 Appointment Cardiac Electrophysiology Outpt-Simi, Pacemaker/Icd 12/02/2019 Office Visit Oncology Lincoln Griffiths MD [address] [place], [place] [address] [phone] 12/08/2019 Office Visit Ophthalmology Yariel Tineo MD [address] [place] [address] 02/08/2020 Office Visit Cardiology Robert Adkins MD [address] [place] [address] [phone] Health Maintenance Due Date Last Done Comments [...] of this encounter Implants Implanted Type Area Footwear Sales Representative Device Shelf Model / Identifier Expiration Serial / Date Lot Prolene Mesh MESH Right: Ethicon 12/20/2020 PMSK / Implanted: Qty: 1 on 07/04/2016 by Alfonso Martinez MD at [facility] [employer] PMSK / [id number] Pacemaker PACEMAKER Stent-06/24/2016 Implanted: 06/24/2016 (Quantity not on file) documented as of this encounter Results Not on filedocumented in this encounter Insurance Payer Benefit Plan / Subscriber ID Effective Phone Address T ype Group Dates [facility] [id number] 2017-Lux [phone] HMO HEALTH CHOICE HEALTH CHOICE [phone] [id number] [place] [address] documented as of this encounter Advance Directives Name Relationship Healthcare Agent Communication Relationship Keaton Nelson Spouse Primary healthcare agent Elisabeth Soliz Sibling First [place] [phone] agent (Mobile)
--- OUTSIDE RECORDS SUMMARY | 2019-11-07 22:29 | XMS REPORT | Summary of Care ---
:1970 Author Organization [facility] Address [address] [place] [address] Care Team Providers Name Role Phone Elmer Andrade MD Primary Care Provider NAVJOT Espinoza Unavailable Unavailable MD Rocco Unavailable Mary Quezada MD Unavailable Genna Anand NARCOTICS AGENT Unavailable Unavailable MD Casimiro Unavailable Ricardo Rodriguez DO Vacuum Drier Operator Reason for Visit Reason Comments LAB Encounter Details Date Type Department Care Team Description 08/31/2019 Franchise Sales Representative Visit [facility] Vonda Kaur Rj en, NARCOTICS AGENT [address] [facility] [address] [place] [address] Chronic diastolic Professional Office 2, Adc Lab heart failure Building Phlebotomy Lab Professional Office Building [address] [facility] , [address] [place] [address] Allergies Active Allergy Reactions Severity [...] as of this encounter (statuses as of 08/31/2019) Medications Medication Sig Dispensed Refills Start Date [...] hours as needed for Pain (scale 7-10). atorvastatin (LIPITOR) 40 Take 1 tablet by [...] needed for Nausea and Vomiting (N/V). Insulin [place], Use as directed, 1x 100 Each 1 [...] Hiatal mouth 2 (two) times hernia daily. clopidogreL (PLAVIX) 75 mg Take 1 tablet by 90 tablet 3 2019 Active tablet mouth daily. 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/12/2016 with angina pectoris NM (myocardial infarction) 06/12/2016 Type 2 diabetes mellitus without complication 06/12/20 16 Essential hypertension 06/12/2016 History of alcohol abuse Overview: Sober for 16 years documented as of this encounter (statuses as of 08/31/2019) Resolved Problems Problem Noted Date Resolved Date Chest pain radiating to arm 08/08/2016 08/19/2016 Abdominal pain 07/19/2016 08/19/2016 History of epidural anesthesia 07/04/2016 7 Morbid obesity with body mass index of 50 or higher 06/26/19 17 08/19/2016 Obesity (BMI 30-39.9) 06/12/2016 08/19/2016 documented as of this encounter (statuses as of 08/31/2019) Immunizations Name Administration Dates Next Due Td [...] Description 09/06/2019 Nurse Visit Anti-coagulation Clinic Nurse, Christen Antico ag 09/09/2019 Office Visit Psychiatry Mendez Martinez MD [address] [place] [phone] 09/09/2019 Office Visit Internal Medicine Lilibeth Andrade MD [address] [place] [address] [phone] 10/12/2019 Office Visit Internal Medicine Lilibteh Andrade MD [address] 775 15 10/19/2019 Office Visit Endocrinology Diabetes & JonesTre MD Metabolism [address] [place] [address] [phone] 10/27/2019 Office Visit Pulmonary Disease Max Aguiar MD [address] 775 15 11/02/2019 Office Visit Internal Medicine Lilibeth Andrade MD [address] [place] [address]75 15 11/30/2019 Office Visit Cardiology Practitioner, Heart Failure Nurse 12/02/2019 Appointment Cardiac Electrophysiology Outpt-Simi, Pacemaker/Icd 12/02/2019 Office Visit Oncology Lincoln Griffiths MD [address] [place], [place] [address] [phone] 12/08/2019 Office Visit Ophthalmology Yariel Tineo MD [address] [place] [address] 77 [address] 02/08/2020 Office Visit Cardiology Robert Adkins MD [address] [place] [address] Health Maintenance Due Date Last Done [...] 2019 ( Insurance / Financial) CREATININE (SERUM) 08/26/2020 08/27/2019, 08/25/2019, 08/25/2019, Additional history exists COLONOSCOPY 04/22/2027 04/22/2017 DTaP,Tdap,and Td Vaccines 06/26/2027 06/26/2017, 03/19/2015 Postponed from (1 - Tdap) 1980 (Not Indicated) documented as of this encounter Implants Implanted Type Area Fur Finisher Device Shelf Model / Identifier Expiration Serial / Date Lot Prolene Mesh MESH Right: Ethicon 12/20/2020 PMSK / Implanted: Qty: 1 on 07/04/2016 by Alfonso Martinez MD at [facility] [employer] PMSK / [id number] Pacemaker PACEMAKER Stent-06/24/2016 Implanted: 06/24/2016 (Quantity not on file) documented as of this encounter Results Not on filedocumented in this encounter Visit Diagnoses Diagnosis Chronic diastolic heart failure documented in this encounter Insurance Payer Benefit Plan / Subscriber ID Effective Phone Address T [employer]insley[employer] Group Dates [facility] [id number] 2017-Lux [phone] [address] [employer] Written 86 [phone] [place] [address] (Home) [place] [address] documented as of this encounter Advance Directives Name Relationship Healthcare Agent Communication Relationship Keaton Jonilynne Spouse Primary healthcare agent Elisabeth Soliz Sibling First [facility] [place] healthcare agent (Mobile)
--- OUTSIDE RECORDS SUMMARY | 2019-11-07 22:29 | XMS REPORT | Summary of Care ---
:1970 Author Organization [facility] - [facility] Address [address] [place] [address] Care Team Providers Name Role Phone Elmer Andrade MD Primary Care Provider NAVJOT Espinoza Unavailable Unavailable MD Rocco Unavailable Mary Quezada MD Unavailable Genna AnandP Unavailable Unavailable MD Casimiro Unavailable Ricardo Rodriguez DO Tattoo And Body Artist Reason for Visit Reason Comments Refill Request Encounter Details Date Type Department Care Team Description 08/30/2019 Refill [facility]- Janett Valiente MD Refill Request [address] [facility], [address] [place] [address] [place] [address] [phone] Allergies Active Allergy Reactions Severity Noted Date [...] as of this encounter (statuses as of 08/30/2019) Medications Medication Sig Dispensed Refills Start Date [...] needed for Pain (scale 7-10). atorvastatin (LIPITOR) Take 1 tablet by 90 [...] for Nausea Hyperglycemia and Vomiting (N/V). Insulin Stephan, Use as directed, 100 Each 1 06/25/2019 [...] Hypokalemia times daily for 20 30 days. aMILoride 5 mg Take 2 tablets by 120 tablet 0 08/25/2019 04/0 Active tabletIndications: mouth 2 (two) 3/20 Hypokalemia times daily for 20 30 days. metOLazone 2.5 mg Take 1 tablet by 15 tablet 2 08/27/2019 Active tabletIndications: mouth 2 (two) Vitamin B12 deficiency times weekly on Friday and Friday. pantoprazole 40 mg EC Take 1 tablet by 180 tablet 3 08/27/2019 Active tabletIndications: mouth 2 (two) Hiatal hernia times daily. clopidogreL (PLAVIX) 75 Take 1 tablet by 90 tablet 3 0 Active mg tablet mouth daily. clopidogrel (PLAVIX) 75 Take 1 tablet by 90 tablet 3 9 0 Discontinued mg tablet mouth daily. 03/12 (Darlene webster documented as of this encounter (statuses as of 08/30/2019) Active Problems Problem Noted Date Acute hypokalemia [...] Added automatically from request for lillian lawson [id number] Syncope 04/01/2017 Chest pain, rule out acute [...] Chest pain 06/12/2016 Coronary artery disease involving [place] coronary briseyda ry of [place] heart 06/12/2016 with angina pectoris [place] (myocardial infarction) 06/12/2016 Type 2 diabetes mellitus without complication 06/12/20 16 Essential hypertension 06/12/2016 History of alcohol abuse Overview: Sober for 16 years documented as of this encounter (statuses as of 08/30/2019) Resolved Problems Problem Noted Date Resolved Date Chest pain radiating to arm 08/08/2016 08/19/2016 Abdominal pain 07/19/2016 08/19/2016 History of epidural anesthesia 07/04/2016 7 Morbid obesity with body mass index of 50 or higher 06/26/19 17 08/19/2016 Obesity (BMI 30-39.9) 06/12/2016 08/19/2016 documented as of this encounter (statuses as of 08/30/2019) Immunizations Name Administration Dates Next Due Td [...] 09/09/2019 Office Visit Psychiatry Mendez Martinez MD [address] [place] [address]. [place] [address] [phone] 09/09/2019 Office Visit Internal Medicine Lilibeth Andrade MD [address] [place] [address] 15 [phone] 10/12/2019 Office Visit Internal Medicine Lilibeth Andrade MD [address] [place] [address] 15 10/19/2019 Office Visit Endocrinology Diabetes & JonesTre MD [address] [place] [address] [phone] 10/27/2019 Office Visit Pulmonary Disease Max Aguiar MD [address] [place] [address] 15 [phone] 11/02/2019 Office Visit Internal Medicine Lilibeth Andrade MD [address] [place] [address] 15 [phone] 11/30/2019 Office Visit Cardiology Practitioner, Heart Failure Nurse 12/02/2019 Appointment Cardiac Electrophysiology Outpt-Simi, Pacemaker/Icd 12/02/2019 Office Visit Oncology Lincoln Griffiths MD [address] [place], [place] [address] [phone] 12/08/2019 Office Visit Ophthalmology Noman, Aishat Cordell, MD [address] [place], [place] [address] 02/08/2020 Office Visit Cardiology Robert Adkins MD [address] [place], [place] [address] Health Maintenance Due Date [...] of this encounter Implants Implanted Type Area Laboratory Phlebotomist Device Shelf Model / Identifier Expiration Serial / Date Lot Prolene Mesh MESH Right: Ethicon 12/20/2020 PMSK / Implanted: Qty: 1 on 07/04/2016 by Alfonso Martinez MD at [facility] [employer] PMSK / [id number] Pacemaker PACEMAKER Stent-06/24/2016 Implanted: 06/24/2016 (Quantity not on file) documented as of this encounter Results Not on filedocumented in this encounter Insurance Payer Benefit Plan / Subscriber ID Effective Phone Address T [employer] Dates HIM [facility] [id number] 2017-Lux [phone] [address] HMO HEALTH [employer] HEALTH CHOICE [phone] [place] [address] documented as of this encounter Advance Directives Name Relationship Healthcare Agent Communication Relationship Keaton Nelson Spouse Primary healthcare agent Elisabeth Soliz Sibling First alternate healthcare agent (Mobile)
--- OUTSIDE RECORDS SUMMARY | 2019-11-07 22:30 | XMS REPORT | Summary of Care ---
:1970 Author Organization [facility] Address [address] [place] [address] Care Team Providers Name Role Phone Elmer Andrade MD Primary Care Provider NAVJOT Espinoza Unavailable Unavailable MD Rocco Unavailable Mary Quezada MD Unavailable Genna Anand INSERT CUTTER Unavailable Unavailable MD Casimiro Unavailable Ricardo Rodriguez DO Bpm Architect Reason for Visit Reason Comments Rx Concern/Question Encounter Details Date Type Department Care Team Description 08/31/2019 Telephone [facility], Robert Adkins x Concern/Question [facility] MD Namita [address] [place] [address] [place] [id number] [place] [address] [place] [address] [phone] Allergies Active Allergy Reactions Severity Noted Date [...] needed for Nausea and Vomiting (N/V). Insulin Gordon, Use as directed, 1x 100 Each 1 [...] Added automatically from request for lillian lawson [id number] Syncope 04/01/2017 Chest pain, rule out acute [...] of [place] heart 06/12/2016 with angina pectoris [place] (myocardial [...] 09/09/2019 Office Visit Psychiatry Mendez Martinez MD [address] [place] [phone] 09/09/2019 Office Visit Internal Medicine Lilibeth Andrade MD [address] [place] [address] [phone] 10/12/2019 Office Visit Internal Medicine Lilibeth Andrade MD [address] [place] [address] 10/19/2019 Office Visit Endocrinology Diabetes & JonesTre MD [address] [place] [address] [phone] 10/27/2019 Office Visit Pulmonary Disease Max Aguiar MD [address] [place] [address] [phone] 11/02/2019 Office Visit Internal Medicine Lilibeth Andrade MD [address] [place] [address] 15 11/30/2019 Office Visit Cardiology Practitioner, Heart Failure Nurse 12/02/2019 Appointment Cardiac Electrophysiology Outpt-Simi, Pacemaker/Icd 12/02/2019 Office Visit Oncology Lincoln Griffiths MD [address] [place], [place] [address] [phone] 12/08/2019 Office Visit Ophthalmology Yariel Tineo MD [address] [place] [address] 02/08/2020 Office Visit Cardiology Robert Adkins MD [address] [place] [address] Health Maintenance Due Date Last Done [...] of this encounter Implants Implanted Type Area Farmworker Field Crop Device Shelf Model / Identifier Expiration Serial / Date Lot Prolene Mesh MESH Right: Ethicon 12/20/2020 PMSK / Implanted: Qty: 1 on 07/04/2016 by Alfonso Martinez MD at [facility] [employer] PMSK / [id number] Pacemaker PACEMAKER Stent-06/24/2016 Implanted: 06/24/2016 (Quantity not on file) documented as of this encounter Results Not on filedocumented in this encounter Insurance Payer Benefit Plan / Subscriber ID Effective Phone Address T ype Group Dates HIM [facility] [id number] 2017-Lux [phone] HMO HEALTH CHOICE HEALTH CHOICE 86 [id number] [place] [address] documented as of this encounter Advance Directives Name Relationship Healthcare Agent Communication Relationship Keaton Thomasjanae Spouse Primary healthcare agent Elisabeth Soliz Sibling First [facility] healthcare [phone] agent (Mobile)
--- OUTSIDE RECORDS SUMMARY | 2019-11-07 22:31 | XMS REPORT | Summary of Care ---
:1970 Author Organization [facility] - [facility] Address [address] [place] [address] Care Team Providers Name Role Phone Elmer Andrade MD Primary Care Provider NAVJOT Espinoza Unavailable Unavailable MD Rocco Unavailable Mary Quezada MD Unavailable Genna Anand HOOP BENDING MACHINE OPERATOR Unavailable Unavailable MD Casimiro Unavailable Ricardo Rodriguez DO Chief Airline Radio Operator Reason for Visit Reason Comments PT/INR Encounter Details Date Type Department Care Team Description 09/06/2019 Nurse Visit [facility] Treva Andrade MD [address] [place] [address] [address] Anticoagulation management encounter; Utom-Ibxepxiqlgu-EG Nurse, Vtc Anticoag Other pulmonary embolism without acute c or pulmonale, unspecified chronicity [facility] [address] [place] [address] Allergies Active Allergy Reactions Severity [...] as of this encounter (statuses as of 09/06/2019) Medications Medication Sig Dispensed Refills Start Date [...] needed for Nausea and Vomiting (N/V). Insulin [place], Use as directed, 1x 100 Each [...] as of this encounter (statuses as of 09/06/2019) Active Problems Problem Noted Date Acute hypokalemia [...] Added automatically from request for lillian lawson [id number] Syncope 04/01/2017 Chest pain, rule out acute [...] Chest pain 06/12/2016 Coronary artery disease involving [place] coronary briseyda ry of [place] heart 06/12/2016 with angina pectoris [place] (myocardial infarction) 06/12/2016 Type 2 diabetes mellitus without complication 06/12/20 16 Essential hypertension 06/12/2016 History of alcohol abuse Overview: Sober for 16 years documented as of this encounter (statuses as of 09/06/2019) Resolved Problems Problem Noted Date Resolved Date Chest pain radiating to arm 08/08/2016 08/19/2016 Abdominal pain 07/19/2016 08/19/2016 History of epidural anesthesia 07/04/2016 7 Morbid obesity with body mass index of 50 or higher 06/26/19 17 08/19/2016 Obesity (BMI 30-39.9) 06/12/2016 08/19/2016 documented as of this encounter (statuses as of 09/06/2019) Immunizations Name Administration Dates Next Due Td [...] filedocumented in this encounter Patient Instructions Patient InstructionsAnthonyDeepika forman, RN - 09/06/2019 3:20 PM CDTContinue Vit K foods2-3 timesa week consistently. Warfarin (Coumadin) dose:45mg per week (using 10 mg tablets - white) Friday:10mg Friday:5mg Friday:5 mg Friday: 10 mg :5mg [...] your safety, please remember to call the [facility] if any of your current medications change dose, if you get new medications, or if medications are stopped. There may be interactions with medications that will increase your risk of bleeding or forming blood clots. When you call the clinic([phone]) we will advise you if your INR should be checked sooner than your next scheduled appointment or you may need to adjust your Vitamin K food intake. AntiCoag Clinic Contact Information [facility] [phone] [email or web address] Galdino Turner [phone] [email or web address] Manisha Quesada [phone] [email or web address] To schedule appts - [phone] Emergency Dial 911 or go to the nearest Emergency Room documented in this encounter Progress Notes Deepika Bagley RN - 09/06/2019 3:20 PM CDT ANTI-COAGULATION CLINIC NOTE Anti-Coagulation diagnosis: ICD-10-CM ICD-9-CM 1. Anticoagulation management encounter Z51.81 V58.83 Z.61 2. Other pulmonary embolism without acute cor pulmonale, unspecified chronicity I26.99 415.19 Warfarin (Coumadin) dose:45mg per week (using 10 mg tablets - white) Friday:10mg Friday:5mg Friday:5 mg Friday: 10 mg :5mg Friday:5mg Friday: 5mg Cognitive assessment: alert and oriented times 3 Finger stick performed using aseptic technique, sticking left hand, middle finger, and [employer] Pharm[employer]sk XS machine [id number] was used. Blood sample was obtained; Band aid was applied. Strip used today lot number: [id number] POCT PT/INR Date Value Ref Range Status 09/06/2019 2.3 (A) 0.8 - 1.4 INR Final POCT PT/SEC Date Value Ref Range Status 09/06/2019 27.0 SEC Final Anti-Coagulation diagnosis: ICD-10-CM ICD-9-CM 1. Anticoagulation management encounter Z51.81 V58.83 Z79. V58.61 2. Other pulmonary embolism without acute cor pulmonale, unspecified chronicity I26.99 415.19 Duration of Anticoagulation Therapy As of 09/06/2019 TTR: 66.8 % (11.8 mo) Target end date: Indefinite Target Range As of 09/06/2019 INR goal: 2.0-3.0 TTR: 66.8 % (11.8 mo) PT/INR within therapeutic range Pt stated [...] with written and verbal educational information on September 06, 2019 regarding theinteraction of warfarin with various foods [...] Treatment Date Type Specialty Care Team Description 09/09/2019 Office Visit Psychiatry Osmar Meza MD [address] [place] [address] [phone] Mendez Martinez MD [address] [place] [address]. [place] [address] 09/09/2019 Office Visit Internal Medicine Lilibeth Andrade MD [address] [place] [address] [phone] 10/11/2019 Nurse Visit Anti-coagulation Clinic Nurse, Vtc Antico ag 10/12/2019 Office Visit Internal Medicine Lilibeth Andrade MD [address] [place] [address] [phone] 10/19/2019 Office Visit Endocrinology Diabetes & Tre Jones MD [address] [place] [address] [phone] 10/27/2019 Office Visit Pulmonary Disease Max Aguiar MD [address] [facility] [address] [place], [place] [address] [phone] 11/02/2019 Office Visit Internal Medicine Lilibeth Andrade MD [address] [facility] [address] [place], [place] [address] [phone] 11/30/2019 Office Visit Cardiology Practitioner, Heart Failure Nurse 12/02/2019 Appointment Cardiac Electrophysiology Outpt-Simi, Pacemaker/Icd 12/02/2019 Office Visit Oncology Lincoln Griffiths MD [address] [place], [place] [address] [phone] 12/08/2019 Office Visit Ophthalmology Yariel Tineo MD [facility] [address] [place], [place] [address] 02/08/2020 Office Visit Cardiology Robert Adkins MD [address] [place], [place] [address] Health Maintenance Due Date [...] 2019 ( Insurance / Financial) CREATININE (SERUM) 08/30/2020 08/31/2019, 08/27/2019, 08/25/2019, Additional history exists COLONOSCOPY 04/22/2027 04/22/2017 DTaP,Tdap,and Td Vaccines 06/26/2027 06/26/2017, 03/19/2015 Postponed from (1 - Tdap) 1980 (Not Indicated) documented as of this encounter Implants Implanted Type Area Derrick Worker Device Shelf Model / Identifier Expiration Serial / Date Lot Prolene Mesh MESH Right: Ethicon 12/20/2020 PMSK / Implanted: Qty: 1 on 07/04/2016 by Alfonso Martinez MD at [facility] [employer] PMSK / [id number] Pacemaker PACEMAKER Stent-06/24/2016 Implanted: 06/24/2016 (Quantity not on file) documented as of this encounter Procedures Procedure Name Priority Date/Time Associated Diagnosis Comme nts POCT Routine 09/06/2019 Anticoagulation management R esults for this PT/INR(COAGUCHEK) encounter procedure are in Other pulmonary embolism the results without acute cor section. pulmonale, unspecified chronicity documented in this encounter Results POCT PT/INR(COAGUCHEK) (09/06/2019) Pathologist Sig nature POCT PT/INR 2.3 (A) 0.8 - 1.4 INR POCT PT/SEC 27.0 SEC Specimen Blood - CAPILLARY documented in this encounter Visit Diagnoses Diagnosis Anticoagulation management encounter Encounter for therapeutic drug monitorin g Other pulmonary embolism without acute c or pulmonale, unspecified chronicity documented in this encounter Insurance Payer Benefit Plan / Subscriber ID Effective Phone Address T ype Group Dates [facility] [id number] 2017-Prese [phone] HMO HEALTH CHOICE HEALTH CHOICE nt [phone] [place] [address] documented as of this encounter Advance Directives Name Relationship Healthcare Agent Communication Relationship Keaton Nelson Spouse Primary healthcare agent Elisabeth Soliz Sibling First [facility] [phone] agent (Mobile)
--- OUTSIDE RECORDS SUMMARY | 2019-11-07 22:33 | XMS REPORT | Clinical Summary ---
:1970 Author Organization [facility] - [facility] Address [address] [place] [id number] Care Team Providers Name Role Phone Elmer Andrade MD Primary Care Provider NAVJOT Espinoza Unavailable Unavailable MD Rocco Unavailable Mary Quezada MD Unavailable Genna Anand Unavailable Unavailable MD Casimiro Unavailable Ricardo Rodriguez DO Material Analyst Allergies Active Allergy Reactions Severity Noted Date [...] needed for Nausea and Vomiting (N/V). Insulin [place], Use as directed, 1x 100 Each 1 06/25/2019 Active Disposable, (RELION PEN daily, DX:E11.9 NEEDLES) 32 gauge x 5/32" Ndle Insulin Glargine (LANTUS inject 12-14 Units 3 mL 0 2019 Active SOLOSTAR U-100 INSULIN) under the skin 100 unit/mL (3 mL) daily. injection clonazePAM 1 mg Take 1 pill PO [...] tablet 3 2019 Active tablet mouth daily. ARIPiprazole 15 mg Take 1 tablet by 30 tablet 1 09/08/2019 Active tabletIndications: mouth daily. Generalized anxiety disorder, Panic disorder without agoraphobia, Severe episode of recurrent major depressive disorder, without psychotic features Active Problems Problem Noted Date Acute hypokalemia [...] Added automatically from request for lillian lawson [id number] Syncope 04/01/2017 Chest pain, rule out acute [...] Chest pain 06/12/2016 Coronary artery disease involving [place] coronary briseyda ry of [place] heart 06/12/2016 with angina pectoris [place] (myocardial [...] Encounters Date Type Specialty Care Team Description 09/06/2019 Nurse Visit Anti-coagulation Andrade, Anticoagula tion management encounter; Clinic Lilibeth Payne MD Other pulmonary embolism without acute c or pulmonale, unspecified chronicity Nurse, [facility] Antico 08/31/2019 Report Clerk Visit Phlebotomy Vonda Kaur FNP heart failure 2, [facility] Lab 08/31/2019 Telephone Cardiology Robert Adkins Rx Concern/Q rosario Breaux MD 08/30/2019 Refill Cardiology Al Valiente Refottoniel merritt MD 08/27/2019 Office Visit Gastroenterology Mandeep Mccartyoph ageal reflux disease without esophagitis (Primary Dx); MD Ioana Hiatal hernia 08/27/2019 Nurse Visit Anti-coagulation Andrade, Anticoagula tion management encounter; Clinic Lilibeth Payne MD Other pulmonary embolism without acute c or pulmonale, unspecified chronicity Nurse, [facility] Antico 08/27/2019 Report Clerk Visit Phlebotomy Maye Mccarty MD heart failure [facility] 08/27/2019 Office Visit Cardiology Vonda Kaur Chronic diastol ic heart failure (Primary Dx); FILIBERTO Pickens Vitamin B12 deficiency Practitioner, Heart Failure Nurse 08/27/2019 Telephone Cardiology Robert Adkins LAB WORK MD Namita 08/26/2019 Telephone Cardiology Robert Adkins Orders (lab orders); MD Namita Talk To Nurse 08/24/2019 Emergency Medicine - Inpatient Gaurav Wang Hyp okalemia - only DO 08/25/2019 Adal Moran MD 08/24/2019 Report Clerk Visit Phlebotomy Lincoln Griffiths, Chronic heart failure with preserved ejection fraction; Other elevated white blood cell (WBC) co unt; [facility] Iron deficiency anemia, unspecified iron deficiency anemia type; Chronic diastol ic congestive heart failure; Stage 2 chronic kidney disease; Pulmonary embol ism, unspecified chronicity, unspecified pulmonary embolism type, unspecified whether acute cor pulmonale present 08/24/2019 Office Visit Oncology Lincoln Griffiths, Pulmonary em bolism, unspecified chronicity, unspecified pulmonary embolism type, unspecified whether acute cor pulmonale present (Primary Dx); Other elevated white blood cell (WBC) count; Iron deficiency anemia, unspecified iron deficiency anemia type; Chronic diastol ic congestive heart failure; Stage 2 chronic kidney disease 08/24/2019 Telephone Cardiology Chiquis Mcadams Orders MD 08/20/2019 Telephone Cardiology Robert Adkins Notification ; LAB MD Namita WORK 08/17/2019 Emergency Medicine - Inpatient Socorro Reeves S, Acut e hypokalemia - only PAC 08/19/2019 Wallace Lea MD 08/17/2019 Report Clerk Visit Phlebotomy Robert Adkins Chronic heart failure MD Namita with preserved 2, [facility] Lab ejection fracti on 08/17/2019 Telephone Internal Medicine Rosanne Andrade on Lilibeth Payne MD 08/13/2019 Nurse Visit Anti-coagulation [place] Anticoagula tion management encounter; Clinic Lilibeth Payne MD Other pulmonary embolism without acute c or pulmonale, unspecified chronicity Nurse, [facility] 08/11/2019 Telephone Cardiology Robert Adkins Rx Concern/Q uestion; MD Namita LAB WORK 08/10/2019 Office Visit Cardiology Robert Adkins Chronic hear t failure with preserved ejection fraction (Primary Dx); MD Namita Vitamin B12 def iciency 08/10/2019 Report Clerk Visit Phlebotomy Robert Adkins Chronic heart failure MD Namita with preserved 2, Adc Lab ejection fracti on 08/10/2019 Orders Only Doctor Unassigned, [place] 08/09/2019 Telephone Cardiology Robert Adkins Orders MD Namita 08/09/2019 Telephone Cardiology Robert Adkins Assessment MD Namita 08/08/2019 Emergency Emergency Medicine Haider Melvin Chest p ain, unspecified type (Primary Dx); G, [employer]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 Congestive hear t failure, unspecified HF chronicity, unspecified heart failure type; Acute on chroni c diastolic congestive heart failure; Anxiety; Angina at rest; Hypervolemia, u nspecified hypervolemia type; Pacemaker; SCHILLING (dyspnea on exertion); Essential hyper tension; Type 2 diabetes mellitus without complication, with long-term current use of insulin 08/06/2019 Report Clerk Visit Phlebotomy Robert Adkins Chronic heart failure MD Namita with preserved 2, Ad[facility] Lab ejection fracti on 08/06/2019 Orders Only Doctor Unassigned, [place] 08/06/2019 Telephone Cardiology Robert Adkins LAB WORK MD Namita 08/05/2019 Emergency Emergency Medicine Lissa Larkin, Hyp[place] lemia (Primary Dx); ALIGNER Weakness genera lized; Diarrhea, unspe cified type 08/05/2019 Report Clerk Visit Phlebotomy Robert Adkins Chronic heart failure MD Namita with preserved 2, Adc Lab ejection fracti on 08/05/2019 Telephone Cardiology Robert Adkins LAB WORK MD Namita 08/05/2019 Telephone Internal Medicine [place] Referral/c onsult Lilibeth Payne MD 08/02/2019 Telephone Family Medicine [place], Forms Lilibeth Payne MD 07/28/2019 Telephone Family Medicine [place], Forms (Form for nadya Payne MD stamps) 07/27/2019 Telephone Gastroenterology Bibiana, Jr Triplett MD 07/22/2019 Report Clerk Visit Phlebotomy Robert Adkins Chronic diastolic CHF (congestive heart failure); MD Namita Hypopotassemia Pob, [facility] Lab Main 07/22/2019 Report Clerk Visit Pulmonary Function SHAKIR Arnold ( dyspnea on Technologist Han Silva MD exertion) 07/22/2019 Telephone Cardiology Robert Adkins Notification ; Rx MD Namita Concern/Questio n 07/22/2019 Telephone Family Medicine [place], Forms (Jannie Payne MD [facility] ) 07/22/2019 Orders Only Doctor Unassigned, [place] 07/21/2019 Telephone Gastroenterology Vinicius Mccartyill Requ alonso Triplett MD (pantoprazole 40 mg EC tablet ) 07/20/2019 Telephone Internal Medicine [place], Forms (Chuy Payne MD Authority) 07/16/2019 Nurse Visit Anti-coagulation Nat Anticoagula tion management encounter; [facility] Other pulmonary embolism without acute cor pulmonale, unspecified chronicity MD Fei Nurse, [facility] Antico 07/16/2019 Refill Gastroenterology Linda Mccarty MD 07/14/2019 Telephone Cardiology Robert Adkins Medication D ose MD Namita Change 07/13/2019 Report Clerk Visit Phlebotomy Robert Adkins Chronic diastolic CHF (congestive heart failure); MD Namita Hypopotassemia 2, [facility] Lab 07/13/2019 Office Visit Cardiology Al Valiente DOE (dyspnea on exertion) (Primary Dx); Chronic heart f ailure with preserved ejection fraction; Coronary artery disease involving [place] coronary artery of [place] heart without angina pectoris; Essential hyper tension; Pacemaker 07/07/2019 Office Visit Endocrinology Diabetes Zhen Jones MD T ype 2 diabetes mellitus with cardiac complication (Primary Dx); & Metabolism Secondary male hypogonadism; Dyslipidemia; Essential hyper tension; High serum marysol sterone 07/07/2019 Report Clerk Visit Phlebotomy Robert Adkins Hypopota ssemia MD Namita 2, [facility] Lab 07/07/2019 Orders Only Doctor Unassigned, [place] 07/06/2019 Office Visit Internal Medicine [place], Vitamin [...] Emergency Emergency Medicine Amisha Toth Hyper glycemia (Primary Dx); J, DO Uncontrolled ty pe 2 diabetes mellitus with hyperglycemia 06/23/2019 Orders Only Doctor Unassigned, [place] 06/14/2019 Nurse Visit Anti-coagulation Celsahner, Anticoagula tion management encounter; Clinic [facility] Other pulmonary embolism without acute cor pulmonale, unspecified chronicity MD Fei Nurse, [facility] 06/11/2019 Office Visit Dermatology Summer Kenney Folliculitis (Primary Dx); MD Rosa Xerosis cutis; Kaitlin Dent Other seborrhe ic keratosis MD Melodie 06/09/2019 Telephone Family Medicine [place], Erasmo ( Chest Lilibeth Payne MD congestion) from Last 3 Months Immunizations Name Administration [...] Sign Reading Time Taken Comments Blood Pressure 103/67 08/27/2019 3:36 PM FARM CONSULTANT Pulse 76 08/27/2019 3:35 PM FARM CONSULTANT Temperature 36.2 C (97.1 F) 08/27/2019 3:35 PM FARM CONSULTANT Respiratory Rate 16 08/27/2019 10:54 AM FARM CONSULTANT Oxygen Saturation 98% 08/27/2019 3:35 PM FARM CONSULTANT Inhaled Oxygen Concentration - - Weight 132.6 kg (292 lb 6.4 oz) 08/27/2019 3:35 PM FARM CONSULTANT Height 177.8 cm (5' 10") 08/27/2019 10:54 AM FARM CONSULTANT Body Mass Index 41.96 08/27/2019 10:54 AM FARM CONSULTANT Plan of Treatment Date Type Specialty Care Team Description 09/09/2019 Telemedicine Visit Internal Medicine Lilibeth Andrade MD [address] [facility] [address] [place], [place] [address] [phone] 10/11/2019 Nurse Visit Anti-coagulation Clinic Nurse, [facility] Anticoag 10/12/2019 Office Visit Internal Medicine Lilibeth Andrade MD [address] [place] [address] 10/19/2019 Office Visit Endocrinology Diabetes & Tre Jones MD [address] [place] [address] [phone] 10/27/2019 Office Visit Pulmonary Disease Max Aguiar MD [address] [place] [address] [address] [place], [place] [address] [phone] 11/02/2019 Office Visit Internal Medicine Lilibeth Andrade MD [address] [place] [address] 11/30/2019 Office Visit Cardiology Practitioner, Heart Failure Nurse 12/02/2019 Appointment Cardiac Electrophysiology Outpt-Simi, Pacemaker/Icd 12/02/2019 Office Visit Oncology Lincoln Griffiths MD [address] [place], [place] [address] [phone] 12/08/2019 Office Visit Ophthalmology Yariel Tineo MD [address] [place] [address]. [place] [address] [phone] 02/08/2020 Office Visit Cardiology Robert Adkins MD [address] [facility] [id number] [place] [address] [phone] Health Maintenance Due Date Last Done Comments [...] 1980 (Not Indicated) Implants Implanted Type Area [employer] Mechanic Device Shelf Model / Identifier Expiration Serial / Date Lot Prolene Mesh MESH Right: Ethicon 12/20/2020 PMSK / Implanted: Qty: 1 on 07/04/2016 by Alfonso Martinez MD at [facility] [employer] PMSK / [id number] Pacemaker PACEMAKER Stent-06/24/2016 Implanted: 06/24/2016 (Quantity not on file) Procedures Procedure Name Priority Date/Time Associated Diagnosis Comme nts POCT PT/INR(COAGUCHEK) Routine 09/06/2019 Anticoagulation Re sults for this management encou nter procedure are in Other pulmonary the results embolism without acute secti on. cor pulmonale, unspecified chronicity N-TERMINAL PRO-BNP Routine 08/31/2019 8:39 Chronic diastolic Results for this AM CDT heart failure procedure are in the results section. MAGNESIUM Routine 08/31/2019 8:39 Chronic diastolic Result s for this AM CDT heart failure procedure are in the results section. BASIC METABOLIC PANEL Routine 08/31/2019 8:39 Chronic diastol ic Results for this (NA, K, CL, CO2, AM CDT heart failure procedure are in GLUCOSE, BUN, the results CREATININE, CA) section. AGREEMENTS Routine 08/31/2019 12:01 AUTHORIZATIONS AND AM CDT IRREVOCABLE ASSIGNMENTS (FORM 2001) CONSENT TO CONTACT FOR Routine 08/27/2019 2:52 R esults for this VOLUNTARY RESEARCH PM FARM CONSULTANT procedure are in the results section. MAGNESIUM Routine 08/27/2019 11:54 Chronic diastolic Result s for this AM FARM CONSULTANT heart failure procedure are in the results section. N-TERMINAL PRO-BNP Routine 08/27/2019 11:54 Chronic diastolic Results for this AM FARM CONSULTANT heart failure procedure are in the results section. BASIC METABOLIC PANEL Routine 08/27/2019 11:54 Chronic diastol ic Results for this (NA, K, CL, CO2, AM FARM CONSULTANT heart failure procedure are in GLUCOSE, BUN, the results CREATININE, CA) section. POCT PT/INR(COAGUCHEK) Routine 08/27/2019 Anticoagulation Re sults for this management encou nter procedure are in Other pulmonary the results embolism without acute secti on. cor pulmonale, unspecified chronicity POCT GLUCOSE Routine 08/25/2019 4:17 Results for this (AUTOMATED) PM FARM CONSULTANT procedure are i n the results section. BASIC METABOLIC PANEL Routine 08/25/2019 2:26 Re sults for this (NA, K, CL, CO2, PM FARM CONSULTANT procedure a re in GLUCOSE, BUN, the results CREATININE, CA) section. POCT GLUCOSE Routine 08/25/2019 11:11 Results for this (AUTOMATED) AM FARM CONSULTANT procedure are i n the results section. POCT GLUCOSE Routine 08/25/2019 7:35 Results for this (AUTOMATED) AM FARM CONSULTANT procedure are i n the results section. CBC WITH DIFFERENTIAL Routine 08/25/2019 4:05 Re sults for this AM FARM CONSULTANT procedure are i n the results section. PROTHROMBIN TIME / INR Routine 08/25/2019 4:05 R esults for this AM FARM CONSULTANT procedure are i n the results section. MAGNESIUM Routine 08/25/2019 4:05 Results for this AM FARM CONSULTANT procedure are i n the results section. CBC WITH DIFFERENTIAL Routine 08/25/2019 4:05 Re sults for this AM FARM CONSULTANT procedure are i n the results section. BASIC METABOLIC PANEL Routine 08/25/2019 4:05 Re sults for this (NA, K, CL, CO2, AM FARM CONSULTANT procedure a re in GLUCOSE, BUN, the results CREATININE, CA) section. BASIC METABOLIC PANEL STAT 08/25/2019 12:17 Re sults for this (NA, K, CL, CO2, AM FARM CONSULTANT procedure a re in GLUCOSE, BUN, the results CREATININE, CA) section. POCT GLUCOSE Routine 08/24/2019 8:34 Results for this (AUTOMATED) PM FARM CONSULTANT procedure are i n the results section. EKG-12 LEAD Routine 08/24/2019 3:19 PM FARM CONSULTANT NOTICE OF PRIVACY Routine 08/24/2019 3:04 PRACTICES PM FARM CONSULTANT CONSENT/REFUSAL FOR Routine 08/24/2019 3:03 DIAGNOSIS AND PM FARM CONSULTANT TREATMENT MAGNESIUM Add-on 08/24/2019 11:12 Chronic heart failure Re sults for this AM FARM CONSULTANT with preserved procedure are in ejection fraction the result s section. FACTOR 5 LEIDEN Routine 08/24/2019 11:12 Other elevated white Results for this AM FARM CONSULTANT blood cell (WBC) count procedure are in Iron deficiency the results anemia, unspecified section. iron deficiency anemia type Chronic diastolic congestive heart failure Stage 2 chronic kidney disease Pulmonary embolism, unspecified chronicity, unspecified pulmonary embolism type, unspecified whether acute cor pulmonale present FACTOR 2 [id number] Routine 08/24/2019 11:12 Other elevated white Results for this MUTATION AM FARM CONSULTANT blood cell (WBC) count procedure are in Iron deficiency the results anemia, unspecified section. iron deficiency anemia type Chronic diastolic congestive heart failure Stage 2 chronic kidney disease Pulmonary embolism, unspecified chronicity, unspecified pulmonary embolism type, unspecified whether acute cor pulmonale present ANTITHROMBIN ACTIVITY Routine 08/24/2019 11:12 Other elevated white Results for this AM FARM CONSULTANT blood cell (WBC) count procedure are in Iron deficiency the results anemia, unspecified section. iron deficiency anemia type Chronic diastolic congestive heart failure Stage 2 chronic kidney disease Pulmonary embolism, unspecified chronicity, unspecified pulmonary embolism type, unspecified whether acute cor pulmonale present PROTEIN S ACTIVITY Routine 08/24/2019 11:12 Other elevated whi te Results for this AM FARM CONSULTANT blood cell (WBC) count procedure are in Iron deficiency the results anemia, unspecified section. iron deficiency anemia type Chronic diastolic congestive heart failure Stage 2 chronic kidney disease Pulmonary embolism, unspecified chronicity, unspecified pulmonary embolism type, unspecified whether acute cor pulmonale present PROTEIN C ACTIVITY Routine 08/24/2019 11:12 Other elevated whi te Results for this AM FARM CONSULTANT blood cell (WBC) count procedure are in Iron deficiency the results anemia, unspecified section. iron deficiency anemia type Chronic diastolic congestive heart failure Stage 2 chronic kidney disease Pulmonary embolism, unspecified chronicity, unspecified pulmonary embolism type, unspecified whether acute cor pulmonale present PROTEIN C ANTIGEN Routine 08/24/2019 11:12 Other elevated whit e Results for this AM FARM CONSULTANT blood cell (WBC) count procedure are in Iron deficiency the results anemia, unspecified section. iron deficiency anemia type Chronic diastolic congestive heart failure Stage 2 chronic kidney disease Pulmonary embolism, unspecified chronicity, unspecified pulmonary embolism type, unspecified whether acute cor pulmonale present FACTOR 2 [id number] Routine 08/24/2019 11:12 Other elevated white Results for this MUTATION AM FARM CONSULTANT blood cell (WBC) count procedure are in Iron deficiency the results anemia, unspecified section. iron deficiency anemia type Chronic diastolic congestive heart failure Stage 2 chronic kidney disease Pulmonary embolism, unspecified chronicity, unspecified pulmonary embolism type, unspecified whether acute cor pulmonale present BASIC METABOLIC PANEL Routine 08/24/2019 11:12 Chronic heart f ailure Results for this (NA, K, CL, CO2, AM FARM CONSULTANT with preserved procedure are in GLUCOSE, BUN, ejection fraction the resul ts CREATININE, CA) section. HOSPITAL ADMISSION Routine 08/24/2019 12:01 AM FARM CONSULTANT POCT GLUCOSE Routine 08/19/2019 10:56 Results for this (AUTOMATED) AM FARM CONSULTANT procedure are i n the results section. POCT GLUCOSE Routine 08/19/2019 7:12 Results for this (AUTOMATED) AM FARM CONSULTANT procedure are i n the results section. MAGNESIUM Routine 08/19/2019 3:21 Results for this AM FARM CONSULTANT procedure are i n the results section. N-TERMINAL PRO-BNP Routine 08/19/2019 3:21 Resul ts for this AM FARM CONSULTANT procedure are i n the results section. PROTHROMBIN TIME / INR Routine 08/19/2019 3:21 R esults for this AM FARM CONSULTANT procedure are i n the results section. BASIC METABOLIC PANEL Routine 08/19/2019 3:21 Re sults for this (NA, K, CL, CO2, AM FARM CONSULTANT procedure a re in GLUCOSE, BUN, the results CREATININE, CA) section. POCT GLUCOSE Routine 08/18/2019 7:29 Results for this (AUTOMATED) PM FARM CONSULTANT procedure are i n the results section. POCT GLUCOSE Routine 08/18/2019 4:17 Results for this (AUTOMATED) PM FARM CONSULTANT procedure are i n the results section. BASIC METABOLIC PANEL Routine 08/18/2019 2:39 Re sults for this (NA, K, CL, CO2, PM FARM CONSULTANT procedure a re in GLUCOSE, BUN, the results CREATININE, CA) section. BASIC METABOLIC PANEL Routine 08/18/2019 11:37 Re sults for this (NA, K, CL, CO2, AM FARM CONSULTANT procedure a re in GLUCOSE, BUN, the results CREATININE, CA) section. POCT GLUCOSE Routine 08/18/2019 11:11 Results for this (AUTOMATED) AM FARM CONSULTANT procedure are i n the results section. POCT GLUCOSE Routine 08/18/2019 7:32 Results for this (AUTOMATED) AM FARM CONSULTANT procedure are i n the results section. N-TERMINAL PRO-BNP Add-on 08/18/2019 3:33 Resul ts for this AM FARM CONSULTANT procedure are i n the results section. MAGNESIUM Routine 08/18/2019 3:33 Results for this AM FARM CONSULTANT procedure are i n the results section. PROTHROMBIN TIME / INR Routine 08/18/2019 3:33 R esults for this AM FARM CONSULTANT procedure are i n the results section. CBC WITH DIFFERENTIAL Routine 08/18/2019 3:33 Re sults for this AM FARM CONSULTANT procedure are i n the results section. BASIC METABOLIC PANEL Routine 08/18/2019 3:33 Re sults for this (NA, K, CL, CO2, AM FARM CONSULTANT procedure a re in GLUCOSE, BUN, the results CREATININE, CA) section. CBC WITH DIFFERENTIAL Routine 08/18/2019 3:33 Re sults for this AM FARM CONSULTANT procedure are i n the results section. POCT GLUCOSE Routine 08/17/2019 8:22 Results for this (AUTOMATED) PM FARM CONSULTANT procedure are i n the results section. POCT GLUCOSE Routine 08/17/2019 5:51 Results for this (AUTOMATED) PM FARM CONSULTANT procedure are i n the results section. PROTHROMBIN TIME / INR STAT 08/17/2019 4:41 Hypokalemia R esults for this PM FARM CONSULTANT procedure are i n the results section. EKG-12 LEAD Routine 08/17/2019 4:16 PM FARM CONSULTANT GLYCOSYLATED Add-on 08/17/2019 4:06 Results for this HEMOGLOBIN (A1C) PM FARM CONSULTANT procedure a re in the results section. CBC WITH DIFFERENTIAL STAT 08/17/2019 4:06 Hypokalemia Re sults for this PM FARM CONSULTANT procedure are i n the results section. COMP. METABOLIC PANEL STAT 08/17/2019 4:06 Hypokalemia Re sults for this ([id number]) PM FARM CONSULTANT procedure are i n the results section. MAGNESIUM STAT 08/17/2019 4:06 Hypokalemia Results for this PM FARM CONSULTANT procedure are i n the results section. CBC WITH DIFFERENTIAL STAT 08/17/2019 4:06 Hypokalemia Re sults for this PM FARM CONSULTANT procedure are i n the results section. EKG-12 LEAD Routine 08/17/2019 3:59 PM FARM CONSULTANT CONSENT/REFUSAL FOR Routine 08/17/2019 3:28 DIAGNOSIS AND PM FARM CONSULTANT TREATMENT BASIC METABOLIC PANEL Routine 08/17/2019 8:16 Chronic heart f ailure Results for this (NA, K, CL, CO2, AM FARM CONSULTANT with preserved procedure are in GLUCOSE, BUN, ejection fraction the resul ts CREATININE, CA) section. HOSPITAL ADM - MISC Routine 08/17/2019 12:01 AM FARM CONSULTANT HOSPITAL ADMISSION Routine 08/17/2019 12:01 AM FARM CONSULTANT AGREEMENTS Routine 08/17/2019 12:01 AUTHORIZATIONS AND AM FARM CONSULTANT IRREVOCABLE ASSIGNMENTS (FORM 2001) POCT PT/INR(COAGUCHEK) Routine 08/13/2019 Other pulmonary Re sults for this embolism without acute proce dure are in cor pulmonale, the results unspecified chronicity secti on. BASIC METABOLIC PANEL Routine 08/10/2019 8:47 Chronic heart f ailure Results for this (NA, K, CL, CO2, AM FARM CONSULTANT with preserved procedure are in GLUCOSE, BUN, ejection fraction the resul ts CREATININE, CA) section. AGREEMENTS Routine 08/10/2019 12:01 AUTHORIZATIONS AND AM FARM CONSULTANT IRREVOCABLE ASSIGNMENTS (FORM 2001) TROPONIN I STAT 08/08/2019 5:34 Chest pain, Results for this PM FARM CONSULTANT unspecified type procedure a re in the results section. PROTHROMBIN TIME / INR STAT 08/08/2019 4:32 Chest pain, R esults for this PM FARM CONSULTANT unspecified type procedure a re in the results section. EKG-12 LEAD Routine 08/08/2019 3:27 PM FARM CONSULTANT CBC WITH DIFFERENTIAL STAT 08/08/2019 3:21 Chest pain, Re sults for this PM FARM CONSULTANT unspecified type procedure a re in the results section. N-TERMINAL PRO-BNP STAT 08/08/2019 3:21 Chest pain, Resul ts for this PM FARM CONSULTANT unspecified type procedure a re in the results section. TROPONIN I STAT 08/08/2019 3:21 Chest pain, Results for this PM FARM CONSULTANT unspecified type procedure a re in the results section. COMP. METABOLIC PANEL STAT 08/08/2019 3:21 Chest pain, Re sults for this ([id number]) PM FARM CONSULTANT unspecified type procedure a re in the results section. CBC WITH DIFFERENTIAL STAT 08/08/2019 3:21 Chest pain, Re sults for this PM FARM CONSULTANT unspecified type procedure a re in the results section. XR CHEST 2 VW STAT 08/08/2019 3:13 Chest pain, Results fo r this PM FARM CONSULTANT unspecified type procedure a re in the results section. EKG-12 LEAD Routine 08/08/2019 2:55 PM FARM CONSULTANT CONSENT/REFUSAL FOR Routine 08/08/2019 2:18 DIAGNOSIS AND PM FARM CONSULTANT TREATMENT EMERGENCY SERVICES Routine 08/08/2019 12:01 AGREEMENTS AND AM FARM CONSULTANT AUTHORIZATIONS BASIC METABOLIC PANEL Routine 08/06/2019 8:50 Chronic heart f ailure Results for this (NA, K, CL, CO2, AM FARM CONSULTANT with preserved procedure are in GLUCOSE, BUN, ejection fraction the resul ts CREATININE, CA) section. AGREEMENTS Routine 08/06/2019 12:01 AUTHORIZATIONS AND AM FARM CONSULTANT IRREVOCABLE ASSIGNMENTS (FORM 2000) EKG-12 LEAD Routine 08/05/2019 3:01 PM FARM CONSULTANT CBC WITH DIFFERENTIAL STAT 08/05/2019 2:46 Hypokalemia Re sults for this PM FARM CONSULTANT procedure are i n the results section. TROPONIN I STAT 08/05/2019 2:46 Hypokalemia Results for this PM FARM CONSULTANT procedure are i n the results section. MAGNESIUM STAT 08/05/2019 2:46 Hypokalemia Results for this PM FARM CONSULTANT procedure are i n the results section. LIPASE STAT 08/05/2019 2:46 Hypokalemia Results for this PM FARM CONSULTANT procedure are i n the results section. COMP. METABOLIC PANEL STAT 08/05/2019 2:46 Hypokalemia Re sults for this (61152) PM FARM CONSULTANT procedure are i n the results section. CBC WITH DIFFERENTIAL STAT 08/05/2019 2:46 Hypokalemia Re sults for this PM FARM CONSULTANT procedure are i n the results section. EKG-12 LEAD LIVIA 08/05/2019 2:06 PM FARM CONSULTANT CONSENT/REFUSAL FOR Routine 08/05/2019 1:26 DIAGNOSIS AND PM FARM CONSULTANT TREATMENT BASIC METABOLIC PANEL Routine 08/05/2019 9:21 Chronic heart f ailure Results for this (NA, K, CL, CO2, AM FARM CONSULTANT with preserved procedure are in GLUCOSE, BUN, ejection fraction the resul ts CREATININE, CA) section. AGREEMENTS Routine 08/05/2019 12:01 AUTHORIZATIONS AND AM FARM CONSULTANT IRREVOCABLE ASSIGNMENTS (FORM 2001) EMERGENCY SERVICES Routine 08/05/2019 12:01 AGREEMENTS AND AM FARM CONSULTANT AUTHORIZATIONS PULMONARY FUNCTION Routine 07/22/2019 10:13 Resul ts for this TEST (RESULTS) AM FARM CONSULTANT procedure are in the results section. BASIC METABOLIC PANEL LIVIA 07/22/2019 10:05 Hypopotassemia Results for this (NA, K, CL, CO2, AM FARM CONSULTANT procedure a re in GLUCOSE, BUN, the results CREATININE, CA) section. CONSENT/REFUSAL FOR Routine 07/22/2019 9:16 DIAGNOSIS AND AM FARM CONSULTANT TREATMENT ASSIGNMENT OF BENEFITS Routine 07/22/2019 9:16 AM FARM CONSULTANT POCT PT/INR(COAGUCHEK) Routine 07/16/2019 Other pulmonary Re sults for this embolism without acute proce dure are in cor pulmonale, the results unspecified chronicity secti on. BASIC METABOLIC PANEL Routine 07/13/2019 11:54 Hypopotas semia Results for this (NA, K, CL, CO2, AM FARM CONSULTANT Chronic diastolic CHF pr ocedure are in GLUCOSE, BUN, (congestive heart the resul ts CREATININE, CA) failure) section. MAGNESIUM Routine 07/13/2019 11:54 Chronic diastolic CHF Re sults for this AM FARM CONSULTANT (congestive heart procedure are in failure) the results section. AGREEMENTS Routine 07/13/2019 12:01 AUTHORIZATIONS AND AM FARM CONSULTANT IRREVOCABLE ASSIGNMENTS (FORM 2001) BASIC METABOLIC PANEL Routine 07/07/2019 8:16 Hypopotassemia Results for this (NA, K, CL, CO2, AM FARM CONSULTANT procedure a re in GLUCOSE, BUN, the results CREATININE, CA) section. PATIENT QUESTIONNAIRE Routine 07/07/2019 12:01 AM FARM CONSULTANT AGREEMENTS Routine 07/07/2019 12:01 AUTHORIZATIONS AND AM FARM CONSULTANT IRREVOCABLE ASSIGNMENTS (FORM 2001) POCT HEMOGLOBIN A1C Routine 07/07/2019 Type 2 diabetes Resul ts for this TEST mellitus with cardiac proced ure are in complication the results section. POCT GLUCOSE Routine 06/23/2019 11:19 Results for this (AUTOMATED) AM FARM CONSULTANT procedure are i n the results section. POCT GLUCOSE Routine 06/23/2019 10:39 Results for this (AUTOMATED) AM FARM CONSULTANT procedure are i n the results section. POCT GLUCOSE Routine 06/23/2019 9:52 Results for this (AUTOMATED) AM FARM CONSULTANT procedure are i n the results section. URINALYSIS STAT 06/23/2019 9:42 Hyperglycemia Results fo r this AM FARM CONSULTANT procedure are i n the results section. CBC WITH DIFFERENTIAL STAT 06/23/2019 9:16 Hyperglycemia R esults for this AM FARM CONSULTANT procedure are i n the results section. TROPONIN I STAT 06/23/2019 9:16 Hyperglycemia Results fo r this AM FARM CONSULTANT procedure are i n the results section. BASIC METABOLIC PANEL STAT 06/23/2019 9:16 Hyperglycemia R esults for this (NA, K, CL, CO2, AM FARM CONSULTANT procedure a re in GLUCOSE, BUN, the results CREATININE, CA) section. CBC WITH DIFFERENTIAL Routine 06/23/2019 9:16 Hyperglycemia R esults for this AM FARM CONSULTANT procedure are i n the results section. POCT GLUCOSE Routine 06/23/2019 9:10 Results for this (AUTOMATED) AM FARM CONSULTANT procedure are i n the results section. NOTICE OF PRIVACY Routine 06/23/2019 9:00 PRACTICES AM FARM CONSULTANT CONSENT/REFUSAL FOR Routine 06/23/2019 9:00 DIAGNOSIS AND AM FARM CONSULTANT TREATMENT EMERGENCY SERVICES Routine 06/23/2019 12:01 AGREEMENTS AND AM FARM CONSULTANT AUTHORIZATIONS POCT PT/INR(COAGUCHEK) Routine 06/14/2019 Other pulmonary Re sults for this embolism without acute proce dure are in cor pulmonale, the results unspecified chronicity secti on. from Last 3 Months Results POCT PT/INR(COAGUCHEK) (09/06/2019)Only the most recent of5 resultswithin the time period is included. Pathologist Sig nature POCT PT/INR 2.3 (A) 0.8 - 1.4 INR POCT PT/SEC 27.0 SEC Specimen Blood - CAPILLARY N-TERMINAL PRO-BNP (08/31/2019 8:39 AM CDT)Only the most recent of5 results within the time period is included. Pathologist Sig nature NT-proBNP 31 <=125 pg/mL [facility] Specimen Blood Narrative Performed At Biotin has been reported to cause a negative [facility] bias, interpret results relative to patient's use of biotin. Performing Organization Address City/State/Zipcode Phone Number [facility] CLIA: [id number], [address] [place], [place] [address] BASIC METABOLIC PANEL (13612)(NA, K, CL, CO2, GLUCOSE, BUN, CREATININE, CA) (08/31/2019 8:39 AM CDT)Only the most recent of18 resultswithin the time period is included. Pathologist [facility] VCNC NA 136 135 - 145 [facility] mmol/L [facility] K 3.7 3.5 - 5.0 [facility] mmol/L [facility] CL 96 (L) 98 - 108 mmol/L [facility] CO2 TOTAL 30 23 - 31 mmol/L [facility] AGAP 10 2 - 16 [facility] BUN 20 7 - 23 mg/dL [facility] GLUCOSE 136 (H) 70 - 110 mg/dL [facility] CREATININE 1.17 0.60 - 1.25 [facility] mg/dL [facility] CALCIUM 10.4 8.6 - 10.6 [facility] mg/dL [facility] eGFR Calculation 66.0 mL/min/1.73m2 [facility] (Non[facility] LABORATORY [place]) eGFR Calculation 80.0 mL/min/1.73m2 [facility] () [facility] Specimen Blood Narrative Performed At [...] abnormalities in imaging tests). Performing Organization Address City/[facility] Phone Number [facility] CLIA: [id number], [address] [place] [address] MAGNESIUM (08/31/2019 8:39 AM CDT)Only the most recent of9 resultswithin the time period is included. Pathologist Sig [facility] MAGNESIUM 2.1 1.7 - 2.4 mg/dL [facility] Specimen Blood Performing Organization Address [facility] [place] Phone Number [facility]: [id number], [address] [place] [address] [facility] AGREEMENTS AUTHORIZATIONS AND IRREVOCABLE ASSIGNMENTS (FORM 2001) (08/31/2019 12:01 AM CDT)Only the most recent of7 resultswithin the time period is included. Specimen Performing Organization Address [facility] [place] Phone Number HIM CONSENT TO CONTACT FOR VOLUNTARY RESEARCH (08/27/2019 2:52 PM FARM CONSULTANT) Pathologist Sig [facility] Consent To Contact For Voluntary Yes HIM Research Specimen Performing Organization Address [facility] [place] Phone Number HIM POCT GLUCOSE (AUTOMATED) (08/25/2019 4:17 PM FARM CONSULTANT)Only the most recent of16 resultswithin the time period is included. Pathologist Sig nature POCT GLU 220 (H) 70 - 110 mg/dL [facility] Specimen Blood Performing Organization Address [facility] Phone Number [facility] CLIA: [id number], [address] [place], [place] [address] [facility] CBC WITH DIFFERENTIAL (08/25/2019 4:05 AM FARM CONSULTANT)Only the most recent of6 results within the time period is included. Pathologist Sig nature WBC 9.41 4.20 - 10.70 [facility] 10*3/L [facility] RBC 4.95 4.26 - 5.52 [facility] 10*6/L [facility] HGB 12.3 12.2 - 16.4 [facility] g/dL [facility] HCT 38.9 38.4 - 49.3 % [facility] MCV 78.6 (L) 81.7 - 95.6 fL [facility] MCH 24.8 (L) 26.1 - 32.7 pg [facility] MCHC 31.6 31.2 - 35.0 [facility] g/dL [facility] RDW-SD 44.5 38.5 - 51.6 fL [facility] RDW-CV 15.7 (H) 12.1 - 15.4 % [facility] PLT 310 150 - 328 [facility] 10*3/L [facility] MPV 10.2 9.8 - 13.0 fL [facility] NRBC/100 WBC 0.0 0.0 - 10.0 /100 [facility] WBCs [facility] NRBC x10^3 <0.01 10*3/L [facility] GRAN MAT (NEUT) % 72.3 % [facility] IMM GRAN % 0.60 % [facility] LYMPH % 20.2 % [facility] MONO % 5.5 % [facility] EOS % 1.0 % [facility] BASO % 0.4 % [facility] GRAN MAT x10^3(ANC) 6.80 1.99 - 6.95 [facility] 10*3/uL [facility]OSP[facility] IMM GRAN x10^3 0.06 0.00 - 0.06 [facility] 10*3/uL [facility] LYMPH x10^3 1.90 1.09 - 3.23 [facility] 10*3/uL [facility] MONO x10^3 0.52 0.36 - 1.02 [facility] 10*3/uL [facility]ITAL [facility] EOS x10^3 0.09 0.06 - 0.53 [facility] 10*3/uL [facility] BASO x10^3 0.04 0.01 - 0.09 [facility] 10*3/uL [facility] Specimen Blood - ARM, RIGHT Performing Organization Address City/State/Zipcode Phone Number [facility] CLIA: [id number], [address] [place], [place] [address] PROTHROMBIN TIME / INR (08/25/2019 4:05 AM FARM CONSULTANT)Only the most recent of5 results within the time period is included. PROTIME PATIENT 27.2 (H) 12.0 - 14.7 [facility] LABORATORY INR 2.7Comment: Normal [facility] INR <1.1; Warfarin [facility] Therapeutic range LABORATORY 2.0 to 3.0 or 2.5 to 3.5, depending upon the indications. Specimen Blood - ARM, RIGHT Performing Organization Address [facility]/Zipcode Phone Number [facility] CLIA: [id number], [address] [place], [place] [address] EKG-12 LEAD (08/24/2019 3:19 PM FARM CONSULTANT) Specimen Performing Organization Address City/[facility]/Zipcode Phone Number [facility] NOTICE OF PRIVACY PRACTICES (08/24/2019 3:04 PM FARM CONSULTANT)Only the most recent of2 resultswithin the time period is included. Specimen Performing Organization Address City/[facility]/Zipcode Phone Number HIM CONSENT/REFUSAL FOR DIAGNOSIS AND TREATMENT (08/24/2019 3:03 PM FARM CONSULTANT)Only the most recent of6 resultswithin the time period is included. Specimen Performing Organization Address City/[facility]/Zipcode Phone Number HIM PROTEIN S ACTIVITY (08/24/2019 11:12 AM FARM CONSULTANT) Pathologist Sig nature PROTEIN S ACTIVITY 79 64 - 149 % [facility] Specimen Blood - ARM, LEFT Narrative Performed At Age and hormonal status may affect the normal range fo r [facility] females (particularly during ). Test should n ot be ordered in patients on Coumadin as it can decrease Pro tein C and S levels. Additional studies should be conducted t o determine the source of unexpected abnormal results. Performing Organization Address City/State/Zipcode Phone Number [facility] CLIA: [id number], [address] [place], [place] [address] [facility] PROTEIN C ACTIVITY (08/24/2019 11:12 AM FARM CONSULTANT) Pathologist Sig nature PROTEIN C ACTIVITY 52 (L) 70 - 140 % [facility] Specimen Blood - ARM, LEFT Narrative Performed At Test should not be ordered in patients on Coumadin as it can [facility] decrease Protein C and S levels. Protein C activity is low in neonates and infants and increases to adult levels during adolescence. Additional studies should be conducted to determine the source of unexpected abnormal results. Performing Organization Address City/State/Zipcode Phone Number [facility] CLIA: [id number], [address] [place] [address] [facility] ANTITHROMBIN ACTIVITY (08/24/2019 11:12 AM FARM CONSULTANT) Pathologist Sig nature ANTITHROMBIN ACTIVITY 99 83 - 128 % [facility] SER VICES Specimen Blood - ARM, LEFT Performing Organization Address [facility] Phone Number [facility] CLIA: [id number], [address] [place] [address] [facility] FACTOR 2 [id number] MUTATION (08/24/2019 11:12 AM FARM CONSULTANT) Pathologist Sig nature Factor 2 [id number] Normal Normal [facility] Mutation SERVICES Specimen Blood - ARM, LEFT Narrative Performed At Phenotype Characteristics: 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 Incidence: Approximately 2-5 percent of Caucasians and 0.3 percent of Americans are heterozygous; about 1 in 10,000 individuals are homozygous with two copies of t he mutation. Inheritance: Autosomal dominant. Penetrance: The risk of thrombosis is increased 2-4 fo ld for heterozygotes and further increased for homozygotes. Mutation Tested: F2 c.59590B>A ([id number]) . Clinical Sensitivity for Venous Thrombosis: Approximat jojo 10%. Methodology: Polymerase chain reaction and fluorescenc e monitoring Limitations: The performance of this assay has not bee n evaluated with samples from pediatric ia tients. Counseling and informed consent are recommended for [facility] testing. References: OMIM: [id number] https://ghr.nlm.nih.gov/condition/prothr ombin-thrombophilia Performing Organization Address City/[facility]/Zipcode Phone Number [facility] CLIA: [id number], [address] [place] [address] [facility] FACTOR 5 LEIDEN (08/24/2019 11:12 AM FARM CONSULTANT) Pathologist Sig nature FACTOR 5 LEIDEN Normal Normal [facility] Specimen Blood - ARM, LEFT Narrative Performed At Phenotype Characteristics: Thrombophilia due to mutati on of [facility] coagulation factor 5 (F5) [...] Factor 5 Leide n mutation is c.1601G>A ([id number]). Methodology: Polymerase chain reaction and fluorescenc e monitoring. Limitations: Rare Factor V mutations (U5624K, C9592U, and P9058X) and any additional SNPs in the probe binding r egion may interfere with the target detection and yield an I NVALID result. The performance of this assay has not been bret luated with samples from pediatric patients. Counseling and informed consent are recommended for [facility] testing. References: OMIM: [id number] https://ghr.nlm.nih.gov/condition/zjwmxx-w-bjqnol-thro mbjessicai abby Performing Organization Address City/State/Zipcode Phone Number [facility] CLIA: [id number], [address] [place], [place] [address] [facility] PROTEIN C ANTIGEN (08/24/2019 11:12 AM FARM CONSULTANT) Protein C See scanned ANTIPHOSPHOLIPID (Antigen) report [facility] Specimen Blood - ARM, LEFT Narrative Performed At This result has an attachment that is no t available. Performing Organization Address City/State/Zipcode Phone Number ANTIPHOSPHOLIPID [address] [facility], [place] [phone] [facility] [address] [employer] [facility] [address] HOSPITAL ADMISSION (08/24/2019 12:01 AM FARM CONSULTANT)Only the most recent of2 results within the time period is included. Specimen Performing Organization Address City/State/Zipcode Phone Number HIM EKG-12 LEAD (08/17/2019 4:16 PM FARM CONSULTANT) Specimen Performing Organization Address City/State/Zipcode Phone Number [facility] GLYCOSYLATED HEMOGLOBIN (A1C) (08/17/2019 4:06 PM FARM CONSULTANT) Pathologist Sig nature HGB A1C 7.8 (H) 4.0 - 6.0 % NGSP [facility] Specimen Blood - VENOUS Narrative Performed At %A1C (NGSP) Interpretation (ADA) [facility] 4.8-5.6 Normal or (Non-Diabetic Ra nge) 5.7-6.4 Increased Risk (Pre-Diabet ic) >6.5 Diabetes Indicated Performing Organization Address [facility] Phone Number [facility] CLIA: [id number], [address] [place], [place] [address] COMP. METABOLIC PANEL (54536) (08/17/2019 4:06 PM FARM CONSULTANT)Only the most recent of3 resultswithin the time period is included. NA 137 135 - 145 [facility] mmol/L [facility] K 2.5 (LL) 3.5 - 5.0 [facility] mmol/L [facility] CL 84 (L) 98 - 108 [facility] mmol/L [facility] CO2 TOTAL 39 (H)Comment: 23 - 31 [facility] Previous mmol/L [facility] preliminary LABORATORY verified result was >40 mmol/L on 08/17/2019 at 1634 FARM CONSULTANT AGAP 14 2 - 16 [facility] BUN 20 7 - 23 mg/dL [facility] GLUCOSE 230 (H) 70 - 110 [facility] mg/dL [facility] CREATININE 1.14 0.60 - 1.25 [facility] mg/dL [facility] TOTAL BILI 0.5 0.1 - 1.1 [facility] mg/dL [facility] CALCIUM 10.1 8.6 - 10.6 [facility] mg/dL [facility] T PROTEIN 8.2 6.3 - 8.2 [facility] g/dL [facility] ALBUMIN 4.4 3.5 - 5.0 [facility] g/dL [facility] ALK PHOS 118 34 - 122 U/L [facility] ALTv 29 5 - 50 U/L [facility] AST(SGOT) 32 13 - 40 U/L [facility] eGFR Calculation 68.0 mL/min/1.73m [facility] (Non- [address] [place] [address] [place]) LABORATORY eGFR Calculation 82.4 mL/min/1.73m [facility] () [address] [place] [address] LABORATORY Specimen Blood - VENOUS Narrative Performed At [facility] [place] of Glomerular Filtration Rate (GFR) [facility] [...] tests). Performing Organization Address City/State/Zipcode Phone Number [facility] CLIA: [id number], [address] [place], [place] [address] LABORATORY [facility] (08/17/2019 12:01 AM FARM CONSULTANT) Specimen Performing Organization Address City/State/Zipcode Phone Number HIM TROPONIN I (08/08/2019 5:34 PM FARM CONSULTANT)Only the most recent of4 resultswithin the time period is included. Pathologist Sig nature TROPONIN I <0.012 <=0.034 ng/mL [facility] Specimen Blood - VENOUS Narrative Performed At Equal or Less than 0.034 ng/ml---Normal [facility] Note: Cardiac troponin begins to [...] biotin. Performing Organization Address City/State/Zipcode Phone Number [facility] CLIA: [id number], [address] [place], [place] [address] EKG-12 LEAD (08/08/2019 3:27 PM FARM CONSULTANT) Specimen Performing Organization Address City/State/Zipcode Phone Number HST XR CHEST 2 VW (08/08/2019 3:13 PM FARM CONSULTANT) Specimen Impressions Performed At No acute cardiopulmonary disease PACS/VR/DOSE RL: 501 AFC: [id number] End of report 3 :27 PM Narrative [...] Results Inft User - 2019 3:28 PM FARM CONSULTANT ORDERING CLINICIAN: HAIDER MELVIN TECHNIQUE: 2 views [...] No acute cardiopulmonary disease RL: 501 AFC: [id number] End of report Performing Organization Address [facility] Phone Number PACS/VR/DOSE EMERGENCY SERVICES AGREEMENTS AND AUTHORIZATIONS (08/08/2019 12:01 AM FARM CONSULTANT)Only the most recent of3 resultswithin the time period is included. Specimen Performing Organization Address [facility] Phone Number HIM EKG-12 LEAD (08/05/2019 3:01 PM FARM CONSULTANT) Specimen Performing Organization Address [facility] Phone Number HST LIPASE (08/05/2019 2:46 PM FARM CONSULTANT) Pathologist Sig nature LIPASE 30 0 - 220 U/L [facility] Specimen Blood - VENOUS Performing Organization [facility] [place] Phone Number [facility] CLIA: [id number], [address] [place], [place] [address] PULMONARY FUNCTION TEST (RESULTS) (07/22/2019 10:13 AM FARM CONSULTANT) Pathologist Sig [facility] FVC Actual 3.67 L PFT FEV1 Actual 3.15 L PFT FEV1/FVC Actual 86 % PFT Specimen Performing Organization Address [facility] Phone Number PFT ASSIGNMENT OF BENEFITS (07/22/2019 9:16 AM FARM CONSULTANT) Specimen Performing Organization [facility] [place] Phone Number [facility] PATIENT QUESTIONNAIRE (07/07/2019 12:01 AM FARM CONSULTANT) Specimen Performing [facility] Address [facility] [place] Phone Number [facility] POCT HEMOGLOBIN A1C TEST (07/07/2019) Pathologist Sig nature POCT HBA1C 8.3 (A) 4 - 6 % Specimen Blood - CAPILLARY Urinalysis (06/23/2019 9:42 AM FARM CONSULTANT) Pathologist Sig nature APPEARANCE Clear Clear [facility] COLOR Yellow Yellow [facility] PH 7.0 4.8 - 8.0 [facility] SP GRAVITY 1.006 1.003 - 1.030 [facility] GLU U QUAL 500 mg/dL (A) Normal [facility] BLOOD Negative Negative [facility] KETONES Negative Negative [facility] PROTEIN Negative Negative [facility] UROBILIN Normal Normal [facility] BILIRUBIN Negative Negative [facility] NITRITE Negative Negative [facility] LEUK TRE Negative Negative [facility] RBC/HPF <1 0 - 3 HPF [facility] WBC/HPF <1 0 - 5 HPF [facility] BACTERIA Negative Negative [facility] SQ EPITH <1 HPF [facility] HYAL CAST 5 (H) <=2 LPF [facility] Specimen Urine - URINE, CLEAN CATCH Performing Organization Address City/State/Zipcode Phone Number [facility] CLIA: [id number], [address] [place], [place] [address] from Last 3 Months Insurance Payer Benefit Plan / Subscriber ID Effective Phone Address T ype Group Dates [employer] [id number] 2017-Lux [phone] [id number] [place] [address] (Home) [place] [address] Advance Directives Name Relationship Healthcare Agent Communication Relationship Keaton Nelson Spouse Primary healthcare agent Elisabeth Soliz Sibling [facility] healthcare [phone] agent (Mobile)
--- OUTSIDE RECORDS SUMMARY | 2019-11-07 22:35 | XMS REPORT | Clinical Summary ---
:1970 Author Organization [facility] - [facility] Address [address] [place] [id number] Care Team Providers Name Role Phone Elmer Andrade MD Primary Care Provider NAVJOT Espinoza Unavailable Unavailable MD Rocco Unavailable Mary Quezada MD Unavailable Genna Anand Unavailable Unavailable MD Casimiro Unavailable Ricardo Rodriguez DO Risk Control Analyst Allergies Active Allergy Reactions Severity Noted [...] needed for Nausea and Vomiting (N/V). Insulin [place], Use as directed, 1x 100 Each 1 06/25/2019 Active Disposable, (RELION PEN daily, DX:E11.9 NEEDLES) 32 gauge x 5/32" Ndle Insulin Glargine (LANTUS inject 12-14 Units 3 mL 0 2019 Active SOLOSTAR U-100 INSULIN) under the skin 100 unit/mL (3 mL) daily. injection desvenlafaxine succinate Take 2 tablets by 60 [...] 1 pill PO in 120 tablet 1 09/09/2019 Active tabletIndications: the AM, 1 PO in the Generalized anxiety afternoon, 1 pill PO disorder, Panic disorder in the evening. May without agoraphobia take additional 1 pill as needed acute anxiety. Active Problems Problem Noted Date Acute hypokalemia [...] Added automatically from request for lillian renny [id number] Syncope 04/01/2017 Chest pain, rule out acute [...] Chest pain 06/12/2016 Coronary artery disease involving [place] coronary briseyda ry of [place] heart 06/12/2016 with angina pectoris [place] (myocardial [...] acute c or pulmonale, unspecified chronicity Nurse, [facility] 08/31/2019 Special Needs Babysitter Visit Phlebotomy Vonad Kaur FNP heart failure 2, [facility] [...] acute c or pulmonale, unspecified chronicity Nurse, [facility] 08/27/2019 Special Needs Babysitter Visit Phlebotomy Maye Mccarty MD heart failure [facility] 08/27/2019 Office Visit Cardiology Vonda Kaur Chronic diastol ic heart failure (Primary Dx); FILIBERTO Pickens Vitamin B12 deficiency Practitioner, Heart Failure Nurse 08/27/2019 Telephone Cardiology Robert Adkins LAB WORK MD Namita 08/26/2019 Telephone Cardiology Robert Adkins Orders (lab orders); MD Namita Talk To Nurse 08/24/2019 Emergency Medicine - Inpatient Gaurav Wang Hyp okalemia - only DO 08/25/2019 Adal Moran MD 08/24/2019 Special Needs Babysitter Visit Phlebotomy Lincoln Griffiths, Chronic heart failure with preserved ejection fraction; Other elevated white blood cell (WBC) co unt; [facility] Iron deficiency anemia, unspecified iron deficiency anemia [...] only PAC 08/19/2019 Wallace Lea MD 08/17/2019 Special Needs Babysitter Visit Phlebotomy Robert Adkins Chronic heart failure MD Namita with preserved 2, [facility] Lab ejection fracti on 08/17/2019 Telephone Internal Medicine Rosanne Andrade on Lilibeth Payne MD 08/13/2019 Nurse Visit Anti-coagulation [facility] Anticoagula tion management encounter; Clinic Lilibeth Payne MD Other pulmonary embolism without acute c or pulmonale, unspecified chronicity Nurse, [facility] 08/11/2019 Telephone Cardiology Robert Adkins Rx Concern/Q uestion; MD Namita LAB WORK 08/10/2019 Office Visit Cardiology Robert Adkins Chronic hear t failure with preserved ejection fraction (Primary Dx); MD Namita Vitamin B12 def iciency 08/10/2019 Special Needs Babysitter Visit Phlebotomy Robert Adkins Chronic heart failure MD Namita with preserved 2, [facility] Lab ejection fracti on 08/10/2019 Orders Only Doctor Unassigned, [place] 08/09/2019 Telephone Cardiology Robert Adkins Orders MD Namita 08/09/2019 Telephone Cardiology Robert Adkins Assessment MD Namita 08/08/2019 Emergency Emergency Medicine Haider Melvin Chest p ain, unspecified type (Primary Dx); G, 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 Congestive hear t failure, unspecified HF chronicity, unspecified heart failure type; Acute on chroni c diastolic congestive heart failure; Anxiety; Angina at rest; Hypervolemia, u nspecified hypervolemia type; Pacemaker; SCHILLING (dyspnea on exertion); Essential hyper tension; Type 2 diabetes mellitus without complication, with long-term current use of insulin 08/06/2019 Special Needs Babysitter Visit Phlebotomy Robert Adkins Chronic heart failure MD Namita with preserved 2, [facility] Lab ejection fracti on 08/06/2019 Orders Only Doctor Unassigned, [place] 08/06/2019 Telephone Cardiology Robert Adkins LAB WORK MD Namita 08/05/2019 Emergency Emergency Medicine Lissa Larkin, [place] lemia (Primary Dx); 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 Weakness genera lized; Diarrhea, unspe cified type 08/05/2019 Special Needs Babysitter Visit Phlebotomy Robert Adkins Chronic heart failure [...] Telephone Gastroenterology Bibiana, Jr Triplett MD 07/22/2019 Special Needs Babysitter Visit Phlebotomy Robert Adkins Chronic diastolic CHF (congestive heart failure); MD Namita Hypopotassemia Pob, [facility] Main 07/22/2019 Special Needs Babysitter Visit Pulmonary Function SHAKIR Arnold ( dyspnea on Technologist Han Silva MD exertion) 07/22/2019 Telephone Cardiology Robert Adkins Notification ; Rx MD Namita Concern/Questio n 07/22/2019 Telephone Family Medicine [place], Forms (Jannie Payne MD [facility] ) 07/22/2019 Orders Only Doctor Unassigned, [place] 07/21/2019 Telephone Gastroenterology Vinicius Mccartyill Requ alonso Triplett MD (pantoprazole 40 mg EC tablet ) 07/20/2019 Telephone Internal Medicine [place], Forms (Chuy Payne MD Authority) 07/16/2019 Nurse Visit Anti-coagulation Nat Anticoagula tion management encounter; [facility] Other pulmonary embolism without acute cor pulmonale, unspecified chronicity MD Fei Nurse, [facility] 07/16/2019 Refill Gastroenterology Linda Mccarty MD 07/14/2019 Telephone Cardiology Robert Adkins Medication D ose MD Namita Change 07/13/2019 Special Needs Babysitter Visit Phlebotomy Robert Adkins Chronic diastolic CHF (congestive heart failure); MD Namita Hypopotassemia 2, [facility] Lab 07/13/2019 Office Visit Cardiology Al Valiente DOE (dyspnea on exertion) (Primary Dx); Chronic heart f ailure with preserved ejection fraction; Coronary artery disease involving [place] coronary artery of [place] heart without angina pectoris; Essential hyper tension; Pacemaker 07/07/2019 Office Visit Endocrinology Diabetes Zhen Jones MD T ype 2 diabetes mellitus with cardiac complication (Primary Dx); & Metabolism Secondary male hypogonadism; Dyslipidemia; Essential hyper tension; High serum marysol sterone 07/07/2019 Special Needs Babysitter Visit Phlebotomy Robert Adkins Hypopota ssemia MD Namita 2, [facility] Lab 07/07/2019 Orders Only Doctor Unassigned, [place] 07/06/2019 Office Visit Internal Medicine [place], Vitamin [...] with hyperglycemia 06/23/2019 Orders Only Doctor Unassigned, [place] 06/14/2019 Nurse Visit Anti-coagulation [place], Anticoagula tion management encounter; [facility] Other pulmonary embolism without acute cor pulmonale, unspecified chronicity MD Fei Nurse, [facility] 06/11/2019 Office Visit Dermatology Summer Kenney Folliculitis (Primary Dx); MD Rosa Xerosis cutis; Kaitlin Dent Other seborrhe ic keratosis MD Melodie from Last 3 Months Immunizations Name Administration [...] Comments Blood Pressure 103/67 08/27/2019 3:36 PM UTILITY ARBORIST Pulse 76 08/27/2019 3:35 PM UTILITY ARBORIST Temperature 36.2 C (97.1 F) 08/27/2019 3:35 PM UTILITY ARBORIST Respiratory Rate 16 08/27/2019 10:54 AM UTILITY ARBORIST Oxygen Saturation 98% 08/27/2019 3:35 PM UTILITY ARBORIST Inhaled Oxygen Concentration - - Weight 132.6 kg (292 lb 6.4 oz) 08/27/2019 3:35 PM UTILITY ARBORIST Height 177.8 cm (5' 10") 08/27/2019 10:54 AM UTILITY ARBORIST Body Mass Index 41.96 08/27/2019 10:54 AM UTILITY ARBORIST Plan of Treatment Date Type Specialty Care Team Description 09/09/2019 Telemedicine Visit Internal Medicine Lilibeth Andrade MD [address] [place] [address] 77 15 [phone] 10/11/2019 Nurse Visit Anti-coagulation Clinic Nurse, [facility] Antico[facility] 10/12/2019 Office Visit Internal Medicine Lilibeth Andrade MD [address] [place] [address] 77 15 [phone] 10/19/2019 Office Visit Endocrinology Diabetes & JonesTre MD [facility] [address] [place] [address] [phone] 10/27/2019 Office Visit Pulmonary Disease Max Aguiar MD [address] [place] [address] 77 15 [phone] 11/02/2019 Office Visit Internal Medicine Lilibeth Andrade MD [address] [place] [address] 77 15 11/30/2019 Office Visit Cardiology Practitioner, Heart Failure Nurse 12/02/2019 Appointment Cardiac Electrophysiology Outpt-Simi, Pacemaker/Icd 12/02/2019 Office Visit Oncology Lincoln Griffiths MD [address] [place], [place] [address] [phone] 12/08/2019 Office Visit Ophthalmology Yariel Tineo MD [address] [place] [address]. [place], [place] [id number] 02/08/2020 Office Visit Cardiology Robert Adkins MD [address] [facility] [id number] [place] [address] Health Maintenance Due Date Last Done Comments [...] 1980 (Not Indicated) Implants Implanted Type Area Personnel Administrator Device Shelf Model / Identifier Expiration Serial / Date Lot Prolene Mesh MESH Right: Ethicon 12/20/2020 PMSK / Implanted: Qty: 1 on 07/04/2016 by Alfonso Martinez MD at [facility] [employer] PMSK / [id number] Pacemaker PACEMAKER Stent-06/24/2016 Implanted: 06/24/2016 (Quantity not [...] R esults for this VOLUNTARY RESEARCH PM UTILITY ARBORIST procedure are in the results section. MAGNESIUM Routine 08/27/2019 11:54 Chronic diastolic Result s for this AM UTILITY ARBORIST heart failure procedure are in the results section. N-TERMINAL PRO-BNP Routine 08/27/2019 11:54 Chronic diastolic Results for this AM UTILITY ARBORIST heart failure procedure are in the results section. BASIC METABOLIC PANEL Routine 08/27/2019 11:54 Chronic diastol ic Results for this (NA, K, CL, CO2, AM UTILITY ARBORIST heart failure procedure are in GLUCOSE, BUN, the results CREATININE, CA) section. POCT PT/INR(COAGUCHEK) Routine 08/27/2019 Anticoagulation Re sults for this management encou nter procedure are in Other pulmonary the results embolism without acute secti on. cor pulmonale, unspecified chronicity POCT GLUCOSE Routine 08/25/2019 4:17 Results for this (AUTOMATED) PM UTILITY ARBORIST procedure are i n the results section. BASIC METABOLIC PANEL Routine 08/25/2019 2:26 Re sults for this (NA, K, CL, CO2, PM UTILITY ARBORIST procedure a re in GLUCOSE, BUN, the results CREATININE, CA) section. POCT GLUCOSE Routine 08/25/2019 11:11 Results for this (AUTOMATED) AM UTILITY ARBORIST procedure are i n the results section. POCT GLUCOSE Routine 08/25/2019 7:35 Results for this (AUTOMATED) AM UTILITY ARBORIST procedure are i n the results section. CBC WITH DIFFERENTIAL Routine 08/25/2019 4:05 Re sults for this AM UTILITY ARBORIST procedure are i n the results section. PROTHROMBIN TIME / INR Routine 08/25/2019 4:05 R esults for this AM UTILITY ARBORIST procedure are i n the results section. MAGNESIUM Routine 08/25/2019 4:05 Results for this AM UTILITY ARBORIST procedure are i n the results section. CBC WITH DIFFERENTIAL Routine 08/25/2019 4:05 Re sults for this AM UTILITY ARBORIST procedure are i n the results section. BASIC METABOLIC PANEL Routine 08/25/2019 4:05 Re sults for this (NA, K, CL, CO2, AM UTILITY ARBORIST procedure a re in GLUCOSE, BUN, the results CREATININE, CA) section. BASIC METABOLIC PANEL STAT 08/25/2019 12:17 Re sults for this (NA, K, CL, CO2, AM UTILITY ARBORIST procedure a re in GLUCOSE, BUN, the results CREATININE, CA) section. POCT GLUCOSE Routine 08/24/2019 8:34 Results for this (AUTOMATED) PM UTILITY ARBORIST procedure are i n the results section. EKG-12 LEAD Routine 08/24/2019 3:19 PM UTILITY ARBORIST NOTICE OF PRIVACY Routine 08/24/2019 3:04 PRACTICES PM UTILITY ARBORIST CONSENT/REFUSAL FOR Routine 08/24/2019 3:03 DIAGNOSIS AND PM UTILITY ARBORIST TREATMENT MAGNESIUM Add-on 08/24/2019 11:12 Chronic heart failure Re sults for this AM UTILITY ARBORIST with preserved procedure are in ejection fraction the result s section. FACTOR 5 LEIDEN Routine 08/24/2019 11:12 Other elevated white Results for this AM UTILITY ARBORIST blood cell (WBC) count procedure are in Iron deficiency the results anemia, unspecified section. iron deficiency anemia type Chronic diastolic congestive heart failure Stage 2 chronic kidney disease Pulmonary embolism, unspecified chronicity, unspecified pulmonary embolism type, unspecified whether acute cor pulmonale present FACTOR 2 [id number] Routine 08/24/2019 11:12 Other elevated white Results for this MUTATION AM UTILITY ARBORIST blood cell (WBC) count procedure are in Iron deficiency the results anemia, unspecified section. iron deficiency anemia type Chronic diastolic congestive heart failure Stage 2 chronic kidney disease Pulmonary embolism, unspecified chronicity, unspecified pulmonary embolism type, unspecified whether acute cor pulmonale present ANTITHROMBIN ACTIVITY Routine 08/24/2019 11:12 Other elevated white Results for this AM UTILITY ARBORIST blood cell (WBC) count procedure are in Iron deficiency the results anemia, unspecified section. iron deficiency anemia type Chronic diastolic congestive heart failure Stage 2 chronic kidney disease Pulmonary embolism, unspecified chronicity, unspecified pulmonary embolism type, unspecified whether acute cor pulmonale present PROTEIN S ACTIVITY Routine 08/24/2019 11:12 Other elevated whi te Results for this AM UTILITY ARBORIST blood cell (WBC) count procedure are in Iron deficiency the results anemia, unspecified section. iron deficiency anemia type Chronic diastolic congestive heart failure Stage 2 chronic kidney disease Pulmonary embolism, unspecified chronicity, unspecified pulmonary embolism type, unspecified whether acute cor pulmonale present PROTEIN C ACTIVITY Routine 08/24/2019 11:12 Other elevated whi te Results for this AM UTILITY ARBORIST blood cell (WBC) count procedure are in Iron deficiency the results anemia, unspecified section. iron deficiency anemia type Chronic diastolic congestive heart failure Stage 2 chronic kidney disease Pulmonary embolism, unspecified chronicity, unspecified pulmonary embolism type, unspecified whether acute cor pulmonale present PROTEIN C ANTIGEN Routine 08/24/2019 11:12 Other elevated whit e Results for this AM UTILITY ARBORIST blood cell (WBC) count procedure are in Iron deficiency the results anemia, unspecified section. iron deficiency anemia type Chronic diastolic congestive heart failure Stage 2 chronic kidney disease Pulmonary embolism, unspecified chronicity, unspecified pulmonary embolism type, unspecified whether acute cor pulmonale present FACTOR 2 [id number] Routine 08/24/2019 11:12 Other elevated white Results for this MUTATION AM UTILITY ARBORIST blood cell (WBC) count procedure are in Iron deficiency the results anemia, unspecified section. iron deficiency anemia type Chronic diastolic congestive heart failure Stage 2 chronic kidney disease Pulmonary embolism, unspecified chronicity, unspecified pulmonary embolism type, unspecified whether acute cor pulmonale present BASIC METABOLIC PANEL Routine 08/24/2019 11:12 Chronic heart f ailure Results for this (NA, K, CL, CO2, AM UTILITY ARBORIST with preserved procedure are in GLUCOSE, BUN, ejection fraction the resul ts CREATININE, CA) section. HOSPITAL ADMISSION Routine 08/24/2019 12:01 AM UTILITY ARBORIST POCT GLUCOSE Routine 08/19/2019 10:56 Results for this (AUTOMATED) AM UTILITY ARBORIST procedure are i n the results section. POCT GLUCOSE Routine 08/19/2019 7:12 Results for this (AUTOMATED) AM UTILITY ARBORIST procedure are i n the results section. MAGNESIUM Routine 08/19/2019 3:21 Results for this AM UTILITY ARBORIST procedure are i n the results section. N-TERMINAL PRO-BNP Routine 08/19/2019 3:21 Resul ts for this AM UTILITY ARBORIST procedure are i n the results section. PROTHROMBIN TIME / INR Routine 08/19/2019 3:21 R esults for this AM UTILITY ARBORIST procedure are i n the results section. BASIC METABOLIC PANEL Routine 08/19/2019 3:21 Re sults for this (NA, K, CL, CO2, AM UTILITY ARBORIST procedure a re in GLUCOSE, BUN, the results CREATININE, CA) section. POCT GLUCOSE Routine 08/18/2019 7:29 Results for this (AUTOMATED) PM UTILITY ARBORIST procedure are i n the results section. POCT GLUCOSE Routine 08/18/2019 4:17 Results for this (AUTOMATED) PM UTILITY ARBORIST procedure are i n the results section. BASIC METABOLIC PANEL Routine 08/18/2019 2:39 Re sults for this (NA, K, CL, CO2, PM UTILITY ARBORIST procedure a re in GLUCOSE, BUN, the results CREATININE, CA) section. BASIC METABOLIC PANEL Routine 08/18/2019 11:37 Re sults for this (NA, K, CL, CO2, AM UTILITY ARBORIST procedure a re in GLUCOSE, BUN, the results CREATININE, CA) section. POCT GLUCOSE Routine 08/18/2019 11:11 Results for this (AUTOMATED) AM UTILITY ARBORIST procedure are i n the results section. POCT GLUCOSE Routine 08/18/2019 7:32 Results for this (AUTOMATED) AM UTILITY ARBORIST procedure are i n the results section. N-TERMINAL PRO-BNP Add-on 08/18/2019 3:33 Resul ts for this AM UTILITY ARBORIST procedure are i n the results section. MAGNESIUM Routine 08/18/2019 3:33 Results for this AM UTILITY ARBORIST procedure are i n the results section. PROTHROMBIN TIME / INR Routine 08/18/2019 3:33 R esults for this AM UTILITY ARBORIST procedure are i n the results section. CBC WITH DIFFERENTIAL Routine 08/18/2019 3:33 Re sults for this AM UTILITY ARBORIST procedure are i n the results section. BASIC METABOLIC PANEL Routine 08/18/2019 3:33 Re sults for this (NA, K, CL, CO2, AM UTILITY ARBORIST procedure a re in GLUCOSE, BUN, the results CREATININE, CA) section. CBC WITH DIFFERENTIAL Routine 08/18/2019 3:33 Re sults for this AM UTILITY ARBORIST procedure are i n the results section. POCT GLUCOSE Routine 08/17/2019 8:22 Results for this (AUTOMATED) PM UTILITY ARBORIST procedure are i n the results section. POCT GLUCOSE Routine 08/17/2019 5:51 Results for this (AUTOMATED) PM UTILITY ARBORIST procedure are i n the results section. PROTHROMBIN TIME / INR STAT 08/17/2019 4:41 Hypokalemia R esults for this PM UTILITY ARBORIST procedure are i n the results section. EKG-12 LEAD Routine 08/17/2019 4:16 PM UTILITY ARBORIST GLYCOSYLATED Add-on 08/17/2019 4:06 Results for this HEMOGLOBIN (A1C) PM UTILITY ARBORIST procedure a re in the results section. CBC WITH DIFFERENTIAL STAT 08/17/2019 4:06 Hypokalemia Re sults for this PM UTILITY ARBORIST procedure are i n the results section. COMP. METABOLIC PANEL STAT 08/17/2019 4:06 Hypokalemia Re sults for this ([id number]) PM UTILITY ARBORIST procedure are i n the results section. MAGNESIUM STAT 08/17/2019 4:06 Hypokalemia Results for this PM UTILITY ARBORIST procedure are i n the results section. CBC WITH DIFFERENTIAL STAT 08/17/2019 4:06 Hypokalemia Re sults for this PM UTILITY ARBORIST procedure are i n the results section. EKG-12 LEAD Routine 08/17/2019 3:59 PM UTILITY ARBORIST CONSENT/REFUSAL FOR Routine 08/17/2019 3:28 DIAGNOSIS AND PM UTILITY ARBORIST TREATMENT BASIC METABOLIC PANEL Routine 08/17/2019 8:16 Chronic heart f ailure Results for this (NA, K, CL, CO2, AM UTILITY ARBORIST with preserved procedure are in GLUCOSE, BUN, ejection fraction the resul ts CREATININE, CA) section. HOSPITAL ADM - MISC Routine 08/17/2019 12:01 AM UTILITY ARBORIST HOSPITAL ADMISSION Routine 08/17/2019 12:01 AM UTILITY ARBORIST AGREEMENTS Routine 08/17/2019 12:01 AUTHORIZATIONS AND AM UTILITY ARBORIST IRREVOCABLE ASSIGNMENTS (FORM 2001) POCT PT/INR(COAGUCHEK) Routine 08/13/2019 Other pulmonary Re sults for this embolism without acute proce dure are in cor pulmonale, the results unspecified chronicity secti on. BASIC METABOLIC PANEL Routine 08/10/2019 8:47 Chronic heart f ailure Results for this (NA, K, CL, CO2, AM UTILITY ARBORIST with preserved procedure are in GLUCOSE, BUN, ejection fraction the resul ts CREATININE, CA) section. AGREEMENTS Routine 08/10/2019 12:01 AUTHORIZATIONS AND AM UTILITY ARBORIST IRREVOCABLE ASSIGNMENTS (FORM 2001) TROPONIN I STAT 08/08/2019 5:34 Chest pain, Results for this PM UTILITY ARBORIST unspecified type procedure a re in the results section. PROTHROMBIN TIME / INR STAT 08/08/2019 4:32 Chest pain, R esults for this PM UTILITY ARBORIST unspecified type procedure a re in the results section. EKG-12 LEAD Routine 08/08/2019 3:27 PM UTILITY ARBORIST CBC WITH DIFFERENTIAL STAT 08/08/2019 3:21 Chest pain, Re sults for this PM UTILITY ARBORIST unspecified type procedure a re in the results section. N-TERMINAL PRO-BNP STAT 08/08/2019 3:21 Chest pain, Resul ts for this PM UTILITY ARBORIST unspecified type procedure a re in the results section. TROPONIN I STAT 08/08/2019 3:21 Chest pain, Results for this PM UTILITY ARBORIST unspecified type procedure a re in the results section. COMP. METABOLIC PANEL STAT 08/08/2019 3:21 Chest pain, Re sults for this ([id number]) PM UTILITY ARBORIST unspecified type procedure a re in the results section. CBC WITH DIFFERENTIAL STAT 08/08/2019 3:21 Chest pain, Re sults for this PM UTILITY ARBORIST unspecified type procedure a re in the results section. XR CHEST 2 VW STAT 08/08/2019 3:13 Chest pain, Results fo r this PM UTILITY ARBORIST unspecified type procedure a re in the results section. EKG-12 LEAD Routine 08/08/2019 2:55 PM UTILITY ARBORIST CONSENT/REFUSAL FOR Routine 08/08/2019 2:18 DIAGNOSIS AND PM UTILITY ARBORIST TREATMENT EMERGENCY SERVICES Routine 08/08/2019 12:01 AGREEMENTS AND AM UTILITY ARBORIST AUTHORIZATIONS BASIC METABOLIC PANEL Routine 08/06/2019 8:50 Chronic heart f ailure Results for this (NA, K, CL, CO2, AM UTILITY ARBORIST with preserved procedure are in GLUCOSE, BUN, ejection fraction the resul ts CREATININE, CA) section. AGREEMENTS Routine 08/06/2019 12:01 AUTHORIZATIONS AND AM UTILITY ARBORIST IRREVOCABLE ASSIGNMENTS (FORM 2001) EKG-12 LEAD Routine 08/05/2019 3:01 PM UTILITY ARBORIST CBC WITH DIFFERENTIAL STAT 08/05/2019 2:46 Hypokalemia Re sults for this PM UTILITY ARBORIST procedure are i n the results section. TROPONIN I STAT 08/05/2019 2:46 Hypokalemia Results for this PM UTILITY ARBORIST procedure are i n the results section. MAGNESIUM STAT 08/05/2019 2:46 Hypokalemia Results for this PM UTILITY ARBORIST procedure are i n the results section. LIPASE STAT 08/05/2019 2:46 Hypokalemia Results for this PM UTILITY ARBORIST procedure are i n the results section. COMP. METABOLIC PANEL STAT 08/05/2019 2:46 Hypokalemia Re sults for this ([id number]) PM UTILITY ARBORIST procedure are i n the results section. CBC WITH DIFFERENTIAL STAT 08/05/2019 2:46 Hypokalemia Re sults for this PM UTILITY ARBORIST procedure are i n the results section. EKG-12 LEAD LIVIA 08/05/2019 2:06 PM UTILITY ARBORIST CONSENT/REFUSAL FOR Routine 08/05/2019 1:26 DIAGNOSIS AND PM UTILITY ARBORIST TREATMENT BASIC METABOLIC PANEL Routine 08/05/2019 9:21 Chronic heart f ailure Results for this (NA, K, CL, CO2, AM UTILITY ARBORIST with preserved procedure are in GLUCOSE, BUN, ejection fraction the resul ts CREATININE, CA) section. AGREEMENTS Routine 08/05/2019 12:01 AUTHORIZATIONS AND AM UTILITY ARBORIST IRREVOCABLE ASSIGNMENTS (FORM 2001) EMERGENCY SERVICES Routine 08/05/2019 12:01 AGREEMENTS AND AM UTILITY ARBORIST AUTHORIZATIONS PULMONARY FUNCTION Routine 07/22/2019 10:13 Resul ts for this TEST (RESULTS) AM UTILITY ARBORIST procedure are in the results section. BASIC METABOLIC PANEL LIVIA 07/22/2019 10:05 Hypopotassemia Results for this (NA, K, CL, CO2, AM UTILITY ARBORIST procedure a re in GLUCOSE, BUN, the results CREATININE, CA) section. CONSENT/REFUSAL FOR Routine 07/22/2019 9:16 DIAGNOSIS AND AM UTILITY ARBORIST TREATMENT ASSIGNMENT OF BENEFITS Routine 07/22/2019 9:16 AM UTILITY ARBORIST POCT PT/INR(COAGUCHEK) Routine 07/16/2019 Other pulmonary Re sults for this embolism without acute proce dure are in cor pulmonale, the results unspecified chronicity secti on. BASIC METABOLIC PANEL Routine 07/13/2019 11:54 Hypopotas semia Results for this (NA, K, CL, CO2, AM UTILITY ARBORIST Chronic diastolic CHF pr ocedure are in GLUCOSE, BUN, (congestive heart the resul ts CREATININE, CA) failure) section. MAGNESIUM Routine 07/13/2019 11:54 Chronic diastolic CHF Re sults for this AM UTILITY ARBORIST (congestive heart procedure are in failure) the results section. AGREEMENTS Routine 07/13/2019 12:01 AUTHORIZATIONS AND AM UTILITY ARBORIST IRREVOCABLE ASSIGNMENTS (FORM 2001) BASIC METABOLIC PANEL Routine 07/07/2019 8:16 Hypopotassemia Results for this (NA, K, CL, CO2, AM UTILITY ARBORIST procedure a re in GLUCOSE, BUN, the results CREATININE, CA) section. PATIENT QUESTIONNAIRE Routine 07/07/2019 12:01 AM UTILITY ARBORIST AGREEMENTS Routine 07/07/2019 12:01 AUTHORIZATIONS AND AM UTILITY ARBORIST IRREVOCABLE ASSIGNMENTS (FORM 2001) POCT HEMOGLOBIN A1C Routine 07/07/2019 Type 2 diabetes Resul ts for this TEST mellitus with cardiac proced ure are in complication the results section. POCT GLUCOSE Routine 06/23/2019 11:19 Results for this (AUTOMATED) AM UTILITY ARBORIST procedure are i n the results section. POCT GLUCOSE Routine 06/23/2019 10:39 Results for this (AUTOMATED) AM UTILITY ARBORIST procedure are i n the results section. POCT GLUCOSE Routine 06/23/2019 9:52 Results for this (AUTOMATED) AM UTILITY ARBORIST procedure are i n the results section. URINALYSIS STAT 06/23/2019 9:42 Hyperglycemia Results fo r this AM UTILITY ARBORIST procedure are i n the results section. CBC WITH DIFFERENTIAL STAT 06/23/2019 9:16 Hyperglycemia R esults for this AM UTILITY ARBORIST procedure are i n the results section. TROPONIN I STAT 06/23/2019 9:16 Hyperglycemia Results fo r this AM UTILITY ARBORIST procedure are i n the results section. BASIC METABOLIC PANEL STAT 06/23/2019 9:16 Hyperglycemia R esults for this (NA, K, CL, CO2, AM UTILITY ARBORIST procedure a re in GLUCOSE, BUN, the results CREATININE, CA) section. CBC WITH DIFFERENTIAL Routine 06/23/2019 9:16 Hyperglycemia R esults for this AM UTILITY ARBORIST procedure are i n the results section. POCT GLUCOSE Routine 06/23/2019 9:10 Results for this (AUTOMATED) AM UTILITY ARBORIST procedure are i n the results section. NOTICE OF PRIVACY Routine 06/23/2019 9:00 PRACTICES AM UTILITY ARBORIST CONSENT/REFUSAL FOR Routine 06/23/2019 9:00 DIAGNOSIS AND AM UTILITY ARBORIST TREATMENT EMERGENCY SERVICES Routine 06/23/2019 12:01 AGREEMENTS AND AM UTILITY ARBORIST AUTHORIZATIONS POCT PT/INR(COAGUCHEK) Routine 06/14/2019 Other pulmonary [...] the time period is included. Pathologist Sig [facility] NT-proBNP 31 <=125 pg/mL [facility] Specimen Blood Narrative Performed At Biotin has been reported to cause a negative [facility] bias, interpret results relative to patient's use of biotin. Performing Organization Address City/State/Zipcode Phone Number [facility] CLIA: [id number], [address] BASIC METABOLIC PANEL ([id number])(NA, K, CL, CO2, GLUCOSE, BUN, CREATININE, CA) (08/31/2019 8:39 AM CDT)Only the most recent of18 resultswithin the time period is included. Pathologist [facility] [place] NA 136 135 - 145 [facility] mmol/L [facility] K 3.7 3.5 - 5.0 [facility] mmol/L [facility] CL 96 (L) 98 - 108 mmol/L [facility] CO2 TOTAL 30 23 - 31 mmol/L [facility] AGAP 10 2 - 16 [facility] BUN 20 7 - 23 mg/dL [facility] GLUCOSE 136 (H) 70 - 110 mg/dL [facility] CREATININE 1.17 0.60 - 1.25 [facility] mg/dL [facility] CALCIUM 10.4 8.6 - 10.6 [facility] mg/dL [facility] eGFR Calculation 66.0 mL/min/1.73m2 [facility] (Non-[facility] LABORATORY [place]) eGFR Calculation 80.0 mL/min/1.73m2 [facility] () [facility] Specimen Blood Narrative Performed At Association of Glomerular Filtration Rate (GFR) [facility] and Staging of Kidney Disease* [...] abnormalities in imaging tests). Performing Organization Address City/[facility] Phone Number [facility] CLIA: [id number], [address] [place] [place] [address] MAGNESIUM (08/31/2019 8:39 AM CDT)Only the most recent of9 resultswithin the time period is included. Pathologist Sig nature MAGNESIUM 2.1 1.7 - 2.4 mg/dL [facility] Specimen Blood Performing Organization Address [facility] Phone Number [facility] CLIA: [id number], [address] [place] [address] [address] [facility] AGREEMENTS AUTHORIZATIONS AND IRREVOCABLE ASSIGNMENTS (FORM 2001) (08/31/2019 12:01 AM CDT)Only the most recent of7 resultswithin the time period is included. Specimen Performing Organization Address [facility] Phone Number HIM CONSENT TO CONTACT FOR VOLUNTARY RESEARCH (08/27/2019 2:52 PM UTILITY ARBORIST) Pathologist Sig [facility] Consent To Contact For Voluntary Yes HIM Research Specimen Performing Organization Address [facility] Phone Number [facility] POCT GLUCOSE (AUTOMATED) (08/25/2019 4:17 PM UTILITY ARBORIST)Only the most recent of16 resultswithin the time period is included. Pathologist Sig nature POCT GLU 220 (H) 70 - 110 mg/dL [facility] Specimen Blood Performing Organization Address [facility] Phone Number [facility] CLIA: [id number], [address] [place] [address] 15 [facility] CBC WITH DIFFERENTIAL (08/25/2019 4:05 AM UTILITY ARBORIST)Only the most recent of6 results within the time period is included. Pathologist Sig nature WBC 9.41 4.20 - 10.70 [facility] 10*3/L [facility] RBC 4.95 4.26 - 5.52 [facility] 10*6/L [facility] HGB 12.3 12.2 - 16.4 [facility] g/dL [facility] HCT 38.9 38.4 - 49.3 % [facility] MCV 78.6 (L) 81.7 - 95.6 fL [facility] MCH 24.8 (L) 26.1 - 32.7 pg [facility] MCHC 31.6 31.2 - 35.0 [facility] g/dL HOSPITAL [facility] RDW-SD 44.5 38.5 - 51.6 fL [facility] RDW-CV 15.7 (H) 12.1 - 15.4 % [facility] PLT 310 150 - 328 [facility] 10*3/L [facility] MPV 10.2 9.8 - 13.0 fL [facility] NRBC/100 WBC 0.0 0.0 - 10.0 /100 [facility] WBCs [facility] NRBC x10^3 <0.01 10*3/L [facility] GRAN MAT (NEUT) % 72.3 % [facility] IMM GRAN % 0.60 % [facility] LYMPH % 20.2 % [facility] MONO % 5.5 % [facility] EOS % 1.0 % [facility] BASO % 0.4 % [facility] GRAN MAT x10^3(ANC) 6.80 1.99 - 6.95 [facility] 10*3/uL HOSPITAL [facility]ORY IMM GRAN x10^3 0.06 0.00 - 0.06 [facility] 10*3/uL [facility]OS[facility]ITAL [facility] LYMPH x10^3 1.90 1.09 - 3.23 [facility] 10*3/uL HOS[facility]ITAL [facility] MONO x10^3 0.52 0.36 - 1.02 [facility] 10*3/uL HOSPITAL [facility] EOS x10^3 0.09 0.06 - 0.53 [facility] 10*3/uL HOSPITAL [facility] BASO x10^3 0.04 0.01 - 0.09 [facility] 10*3/uL [facility] Specimen Blood - ARM, RIGHT Performing Organization Address City/State/Zipcode Phone Number [facility] CLIA: [id number], [address] [place], [place] [address] PROTHROMBIN TIME / INR (08/25/2019 4:05 AM UTILITY ARBORIST)Only the most recent of5 results within the time period is included. PROTIME PATIENT 27.2 (H) 12.0 - 14.7 [facility] LABORATORY INR 2.7Comment: Normal [facility] INR <1.1; [facility] LABORATORY 2.0 to 3.0 or 2.5 to 3.5, depending upon the indications. Specimen Blood - ARM, RIGHT Performing Organization Address City/State/Zipcode Phone Number [facility] CLIA: [id number], [address] [place], [place] [address] EKG-12 LEAD (08/24/2019 3:19 PM UTILITY ARBORIST) Specimen Performing Organization Address City/State/Zipcode Phone Number [facility] NOTICE OF PRIVACY PRACTICES (08/24/2019 3:04 PM UTILITY ARBORIST)Only the most recent of2 resultswithin the time period is included. Specimen Performing Organization Address City/State/Zipcode Phone Number HIM CONSENT/REFUSAL FOR DIAGNOSIS AND TREATMENT (08/24/2019 3:03 PM UTILITY ARBORIST)Only the most recent of6 resultswithin the time period is included. Specimen Performing Organization Address City/State/Zipcode Phone Number HIM PROTEIN S ACTIVITY (08/24/2019 11:12 AM UTILITY ARBORIST) Pathologist Sig nature PROTEIN S ACTIVITY 79 64 - 149 % [facility] ES Specimen Blood - ARM, LEFT Narrative Performed At Age and hormonal status may affect the normal range fo r [facility] females (particularly during ). Test should n ot be ordered in patients on Coumadin as it can decrease Pro tein C and S levels. Additional studies should be conducted t o determine the source of unexpected abnormal results. Performing Organization Address City/State/Zipcode Phone Number [facility] CLIA: [id number], [address] [place], [place] [address] PROTEIN C ACTIVITY (08/24/2019 11:12 AM UTILITY ARBORIST) Pathologist Sig nature PROTEIN C ACTIVITY 52 (L) 70 - 140 % [facility] Specimen Blood - ARM, LEFT Narrative Performed At Test should not be ordered in patients on Coumadin as it can [facility] decrease Protein C and S levels. Protein C activity is low in neonates and infants and increases to adult levels during adolescence. Additional studies should be conducted to determine the source of unexpected abnormal results. Performing Organization Address City/State/Zipcode Phone Number [facility] CLIA: [id number], [address] [place] [address] [facility] ANTITHROMBIN ACTIVITY (08/24/2019 11:12 AM UTILITY ARBORIST) Pathologist Sig nature ANTITHROMBIN ACTIVITY 99 83 - 128 % [facility] SER VICES Specimen Blood - ARM, LEFT Performing Organization Address [facility] Cent[facility]ode Phone Number [facility] CLIA: [id number], [address] [place] [address] [facility] FACTOR 2 [id number] MUTATION (08/24/2019 11:12 AM UTILITY ARBORIST) Pathologist Sig nature Factor 2 [id number] Normal Normal [facility] Mutation SERVICES Specimen Blood - ARM, LEFT Narrative Performed At Phenotype Characteristics: Thrombophilia due to produc tion [facility] of too much coagulation factor 2 (F2, also called prothrombin). Incidence: Approximately 2-5 percent of Caucasians and 0.3 percent of Americans are heterozygous; about 1 in 10,000 individuals are homozygous with two copies of t he mutation. Inheritance: Autosomal dominant. Penetrance: The risk of thrombosis is increased 2-4 fo ld for heterozygotes and further increased for homozygotes. Mutation Tested: F2 c.12612S>A ([id number]) . Clinical Sensitivity for Venous Thrombosis: Approximat jojo 10%. Methodology: Polymerase chain reaction and fluorescenc e monitoring Limitations: The performance of this assay has not bee n evaluated with samples from pediatric mi tients. Counseling and informed consent are recommended for [facility] testing. References: OMIM: [id number] https://ghr.nlm.nih.gov/condition/prothr ombin-thrombophilia Performing Organization Address City/State/Zipcode Phone Number [facility] CLIA: [id number], [address] [place] [address] [facility] FACTOR 5 LEIDEN (08/24/2019 11:12 AM UTILITY ARBORIST) Pathologist Sig nature FACTOR 5 LEIDEN Normal Normal [facility] Specimen Blood - ARM, LEFT Narrative Performed At Phenotype Characteristics: Thrombophilia due to mutati on of [facility] coagulation factor 5 (F5) [...] Factor 5 Leide n mutation is c.1601G>A (p.[id number]). Methodology: Polymerase chain reaction and fluorescenc e monitoring. Limitations: Rare Factor V mutations (T8304G, A2028K, and M3061G) and any additional SNPs in the probe binding r egion may interfere with the target detection and yield an I NVALID result. The performance of this assay has not been bret luated with samples from pediatric patients. Counseling and informed consent are recommended for [facility] testing. References: OMIM: [id number] https://ghr.nlm.nih.gov/condition/bdxwoi-u-ghczfx-thro garrett abby Performing Organization Address City/State/Zipcode Phone Number [facility] CLIA: [id number], [address] [place], [place] [address] [facility] PROTEIN C ANTIGEN (08/24/2019 11:12 AM UTILITY ARBORIST) Protein C See scanned ANTIPHOSPHOLIPID (Antigen) report [facility] Specimen Blood - ARM, LEFT Narrative Performed At This result has an attachment that is no t available. Performing Organization Address City/State/Zipcode Phone Number ANTIPHOSPHOLIPID [address] [place] [address] [facility] [address] [employer] [facility] HOSPITAL ADMISSION (08/24/2019 12:01 AM UTILITY ARBORIST)Only the most recent of2 results within the time period is included. Specimen Performing Organization Address City/State/Zipcode Phone Number HIM EKG-12 LEAD (08/17/2019 4:16 PM UTILITY ARBORIST) Specimen Performing Organization Address City/State/Zipcode Phone Number [facility] GLYCOSYLATED HEMOGLOBIN (A1C) (08/17/2019 4:06 PM UTILITY ARBORIST) Pathologist Sig nature HGB A1C 7.8 (H) 4.0 - 6.0 % NGSP [facility] Specimen Blood - VENOUS Narrative Performed At %A1C (NGSP) Interpretation (ADA) [facility] 4.8-5.6 Normal or (Non-Diabetic Ra nge) 5.7-6.4 Increased Risk (Pre-Diabet ic) >6.5 Diabetes Indicated Performing Organization Address City/[facility]/Zipcode Phone Number [facility] CLIA: [id number], [address] [place], [place] [address] COMP. METABOLIC PANEL ([id number]) (08/17/2019 4:06 PM UTILITY ARBORIST)Only the most recent of3 resultswithin the time period is included. NA 137 135 - 145 [facility] mmol/L [facility] K 2.5 (LL) 3.5 - 5.0 [facility] mmol/L [facility] CL 84 (L) 98 - 108 [facility] mmol/L [facility] CO2 TOTAL 39 (H)Comment: 23 - 31 [facility] Previous mmol/L [facility] preliminary LABORATORY verified result was >40 mmol/L on 08/17/2019 at 1634 UTILITY ARBORIST AGAP 14 2 - 16 [facility] BUN 20 7 - 23 mg/dL [facility] GLUCOSE 230 (H) 70 - 110 [facility] mg/dL [facility] CREATININE 1.14 0.60 - 1.25 [facility] mg/dL [facility] TOTAL BILI 0.5 0.1 - 1.1 [facility] mg/dL [facility] CALCIUM 10.1 8.6 - 10.6 [facility] mg/dL [facility] T PROTEIN 8.2 6.3 - 8.2 [facility] g/dL [facility] ALBUMIN 4.4 3.5 - 5.0 [facility] g/dL [facility] ALK PHOS 118 34 - 122 U/L [facility] ALTv 29 5 - 50 U/L [facility] AST(SGOT) 32 13 - 40 U/L [facility] eGFR Calculation 68.0 mL/min/1.73m [facility] (Non- [address] [place] [address] [place]) LABORATORY eGFR Calculation 82.4 mL/min/1.73m [facility] () [address] [place] [address] LABORATORY Specimen Blood - VENOUS Narrative Performed At Association of Glomerular Filtration Rate (GFR) [facility] and Staging of Kidney Disease* [...] tests). Performing Organization Address City/State/Zipcode Phone Number [facility] CLIA: [id number], [address] [place], [place] [address] [address] [facility] (08/17/2019 12:01 AM UTILITY ARBORIST) Specimen Performing Organization Address City/State/Zipcode Phone Number HIM TROPONIN I (08/08/2019 5:34 PM UTILITY ARBORIST)Only the most recent of4 resultswithin the time period is included. Pathologist Sig nature TROPONIN I <0.012 <=0.034 ng/mL [facility] Specimen Blood - VENOUS Narrative Performed At Equal or Less than 0.034 ng/ml---Normal [facility] Note: Cardiac troponin begins to [...] biotin. Performing Organization Address City/State/Zipcode Phone Number [facility] CLIA: [id number], [address] [place], [place] [address] EKG-12 LEAD (08/08/2019 3:27 PM UTILITY ARBORIST) Specimen Performing Organization Address City/[facility] Phone Number HST XR CHEST 2 VW (08/08/2019 3:13 PM UTILITY ARBORIST) Specimen Impressions Performed At No acute cardiopulmonary disease PACS/VR/DOSE RL: [id number] AFC: [id number] End of report 3 :27 PM Narrative [...] Results Inft User - 2019 3:28 PM UTILITY ARBORIST ORDERING CLINICIAN: HAIDER MELVIN TECHNIQUE: 2 views [...] No acute cardiopulmonary disease RL: 501 AFC: [id number] End of report Performing Organization Address City/[facility] Cent[facility]ode Phone Number PACS/VR/DOSE EMERGENCY SERVICES AGREEMENTS AND AUTHORIZATIONS (08/08/2019 12:01 AM UTILITY ARBORIST)Only the most recent of3 resultswithin the time period is included. Specimen Performing Organization Address [facility] Phone Number [facility] EKG-12 LEAD (08/05/2019 3:01 PM UTILITY ARBORIST) Specimen Performing Organization Address [facility] Phone Number HST LIPASE (08/05/2019 2:46 PM UTILITY ARBORIST) Pathologist Sig [facility] LIPASE 30 0 - 220 U/L [facility] Specimen Blood - VENOUS Performing Organization Address [facility] Cent[facility] Phone Number [facility] CLIA: [id number], [address] [place] [place] [address] PULMONARY FUNCTION TEST (RESULTS) (07/22/2019 10:13 AM UTILITY ARBORIST) Pathologist Sig [facility] FVC Actual 3.67 L PFT FEV1 Actual 3.15 L PFT FEV1/FVC Actual 86 % PFT Specimen Performing Organization Address [facility] Phone Number PFT ASSIGNMENT OF BENEFITS (07/22/2019 9:16 AM UTILITY ARBORIST) Specimen Performing Organization Address [facility] Phone Number [facility] PATIENT QUESTIONNAIRE (07/07/2019 12:01 AM UTILITY ARBORIST) Specimen Performing [facility] Phone Number [facility] POCT HEMOGLOBIN A1C TEST (07/07/2019) Pathologist Sig [facility] POCT HBA1C 8.3 (A) 4 - 6 % Specimen Blood - CAPILLARY Urinalysis (06/23/2019 9:42 AM UTILITY ARBORIST) Pathologist [facility] APPEARANCE Clear Clear [facility] COLOR Yellow Yellow [facility] PH 7.0 4.8 - 8.0 [facility] SP GRAVITY 1.006 1.003 - 1.030 [facility] GLU U QUAL 500 mg/dL (A) Normal [facility] BLOOD Negative Negative [facility] KETONES Negative Negative [facility] PROTEIN Negative Negative [facility] UROBILIN Normal Normal [facility] BILIRUBIN Negative Negative [facility] NITRITE Negative Negative [facility] LEUK TRE Negative Negative [facility] RBC/HPF <1 0 - 3 HPF [facility] WBC/HPF <1 0 - 5 HPF [facility] BACTERIA Negative Negative [facility] SQ EPITH <1 HPF [facility] HYAL CAST 5 (H) <=2 LPF [facility] Specimen Urine - URINE, CLEAN CATCH Performing Organization Address City/State/Zipcode Phone Number [facility] CLIA: [id number], [address] [place], [place] [address] from Last 3 Months Insurance Payer Benefit Plan / Subscriber ID Effective Phone Address T ype Group Dates [employer] [id number] 2017-[employer]ux [phone] [address] [employer] [id number] [place] [address] (Home) [place] [address] Advance Directives Name Relationship Healthcare Agent Communication Relationship Keaton Nelson Spouse Primary healthcare agent Elisabeth Soliz Sibling [facility] healthcare [phone] agent (Mobile)
--- OUTSIDE RECORDS SUMMARY | 2019-11-07 22:36 | XMS REPORT | Summary of Care ---
:1970 Author Organization [facility] - Health Address [address] [id number] Care Team Providers Name Role Phone Elmer Andrade MD Primary Care Provider NAVJOT Espinoza Unavailable Unavailable MD Rocco Unavailable Mary Quezada MD Unavailable Genna Anand Unavailable Unavailable MD Casimiro Unavailable Ricardo Rodriguez DO Welfare Officer Encounter Details Date Type Department Care Team Description 09/11/2019 Orders Only [facility] Doctor Unassigned, No [address] [facility] [place] [address] [address] [id number] Allergies Active Allergy Reactions Severity Noted Date [...] as of this encounter (statuses as of 09/11/2019) Medications Medication Sig Dispensed Refills Start Date [...] with diabetes mellitus with breakfast. cardiac complication Ranolazine 1,000 mg tablet Take [...] needed for Nausea and Vomiting (N/V). Insulin [place], Use as directed, 1x 100 Each 1 [...] additional 1 pill as needed acute anxiety. dulaglutide (TRULICITY) inject 0.75 mg under 4 Syringe 4 09/09 Active 0.75 mg/0.5 mL the skin weekly. PnIjIndications: Type 2 diabetes mellitus with cardiac complication documented as of this encounter (statuses as of 09/11/2019) Active Problems Problem Noted Date Acute hypokalemia [...] Added automatically from request for lillian lawson [id number] Syncope 04/01/2017 Chest pain, rule out acute [...] Chest pain 06/12/2016 Coronary artery disease involving [place] coronary briseyda ry of [place] heart 06/12/2016 with angina pectoris [place] (myocardial infarction) 06/12/2016 Type 2 diabetes mellitus without complication 06/12/20 16 Essential hypertension 06/12/2016 History of alcohol abuse Overview: Sober for 16 years documented as of this encounter (statuses as of 09/11/2019) Resolved Problems Problem Noted Date Resolved Date Chest pain radiating to arm 08/08/2016 08/19/2016 Abdominal pain 07/19/2016 08/19/2016 History of epidural anesthesia 07/04/2016 7 Morbid obesity with body mass index of 50 or higher 06/26/19 17 08/19/2016 Obesity (BMI 30-39.9) 06/12/2016 08/19/2016 documented as of this encounter (statuses as of 09/11/2019) Immunizations Name Administration Dates Next Due Td [...] Treatment Date Type Specialty Care Team Description 10/11/2019 Nurse Visit Anti-coagulation Clinic Nurse, Vtc Antico ag 10/12/2019 Office Visit Internal Medicine Lilibeth Andrade MD 146 [facility] [address] [place], [place] [address] [phone] 10/19/2019 Office Visit Endocrinology Diabetes & Tre Jones MD Metabolism [address] [place] [address] [phone] 10/27/2019 Office Visit Pulmonary Disease Max Aguiar MD 146 [facility] [address] [place], [place] [address] [phone] 11/02/2019 Office Visit Internal Medicine Lilibeth Andrade MD 146 [facility] [address] [place], [place] [address] [phone] 11/30/2019 Office Visit Cardiology Practitioner, Heart Failure Nurse 12/02/2019 Appointment Cardiac Electrophysiology Outpt-Simi, Pacemaker/Icd 12/02/2019 Office Visit Oncology Lincoln Griffiths MD [address] [place], [place] [address] [phone] 12/08/2019 Office Visit Ophthalmology Yariel Tineo MD [address] [place], [place] [address] 02/08/2020 Office Visit Cardiology Robert Adkins MD [address] [place], [place] [address] Health Maintenance Due Date [...] of this encounter Implants Implanted Type Area Margin Trimmer Device Shelf Model / Identifier Expiration Serial / Date Lot Prolene Mesh MESH Right: Ethicon 12/20/2020 PMSK / Implanted: Qty: 1 on 07/04/2016 by Alfonso Martinez MD at [facility] [employer]dom[employer] PMSK / [id number] Pacemaker PACEMAKER Stent-06/24/2016 Implanted: 06/24/2016 (Quantity not on file) documented as of this encounter Procedures Procedure Name Priority Date/Time Associated Diagnosis Comme nts CONSENT/REFUSAL FOR Routine 09/11/2019 8:50 AM DIAGNOSIS AND TREATMENT CDT ASSIGNMENT OF BENEFITS Routine 09/11/2019 8:50 AM CDT documented in this encounter Results Not on filedocumented in this encounter Insurance Payer Benefit Plan / Subscriber ID Effective Phone Address T ype Group Dates [facility] [id number] 2017-Lux [phone] [employer] [facility] [email or web address] HEALTH CHOICE nt 86 [phone] [place] [address] documented as of this encounter Advance Directives Name Relationship Healthcare Agent Communication Relationship Keaton Nelson Spouse Primary healthcare agent Elisabeth Soliz Sibling First alternate healthcare agent (Mobile)
--- OUTSIDE RECORDS SUMMARY | 2019-11-07 22:36 | XMS REPORT | Summary of Care ---
:1970 Author Organization [facility] Address [address] [place] [address] Care Team Providers Name Role Phone Elmer Andrade MD Primary Care Provider NAVJOT Espinoza Unavailable Unavailable MD Rocco Unavailable Mary Quezada MD Unavailable Genna Anand 1ST GRADE TEACHER Unavailable Unavailable MD Casimiro Unavailable Ricardo Rodriguez DO Skeet Operator Reason for Visit Reason Comments Refill Request Encounter Details Date Type Department Care Team Description 09/10/2019 Refill [facility] Health Endocrinology- Zhen Jones MD Refill Request [address] Professional Office [address] [place] [address] [facility] [phone] Allergies Active Allergy Reactions Severity Noted Date [...] as of this encounter (statuses as of 09/10/2019) Medications Medication Sig Dispensed Refills Start Date [...] 2 diabetes breakfast. mellitus with cardiac complication Ranolazine 1,000 mg [...] for Nausea Hyperglycemia and Vomiting (N/V). Insulin [place], Use as directed, 100 Each 1 06/25/2019 Active Disposable, (RELION PEN 1x daily, NEEDLES) 32 gauge x DX:E11.9 " Ndle Insulin Glargine inject 12-14 3 mL 0 07/07/2019 Active (LANTUS SOLOSTAR U-100 Units under the INSULIN) 100 unit/mL (3 skin daily. mL) injection desvenlafaxine Take 2 tablets by 60 tablet [...] 2 tablets by 120 tablet 0 08/25/2019 040 Active tabletIndications: mouth 2 (two) 3/20 Hypokalemia [...] 3 0 Active mg tablet mouth daily. ARIPiprazole 15 mg Take [...] acute anxiety. dulaglutide (TRULICITY) inject 0.75 mg 4 Syringe 4 09/10/2019 Active 0.75 mg/0.5 mL under the skin PnIjIndications: Type 2 weekly. diabetes mellitus with cardiac complication dulaglutide (TRULICITY) inject 0.75 mg 4 Syringe 4 02/24/201908/22 Discontinued 0.75 mg/0.5 mL under the skin (Reorder) PnIjIndications: Type 2 weekly. 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/12/2016 with angina pectoris [place] (myocardial infarction) 06/12/2016 Type 2 diabetes mellitus without complication 06/12/20 16 Essential hypertension 06/12/2016 History of alcohol abuse Overview: Sober for 16 years documented as of this encounter (statuses as of 09/10/2019) Resolved Problems Problem Noted Date Resolved Date Chest pain radiating to arm 08/08/2016 08/19/2016 Abdominal pain 07/19/2016 08/19/2016 History of epidural anesthesia 07/04/2016 7 Morbid obesity with body mass index of 50 or higher 06/26/19 17 08/19/2016 Obesity (BMI 30-39.9) 06/12/2016 08/19/2016 documented as of this encounter (statuses as of 09/10/2019) Immunizations Name Administration Dates Next Due Td [...] Antico ag 10/12/2019 Office Visit Internal Medicine Lilibteh Andrade MD [address] [address] [phone] 10/19/2019 Office Visit Endocrinology Diabetes & Tre Jones MD [facility] [address] [place] [address] [phone] 10/27/2019 Office Visit Pulmonary Disease Max Aguiar MD [address] [address] [phone] 11/02/2019 Office Visit Internal Medicine Lilibeth Andrade MD [address] [address] [phone] 11/30/2019 Office Visit Cardiology Practitioner, Heart Failure Nurse 12/02/2019 Appointment Cardiac Electrophysiology Outpt-Simi, Pacemaker/Icd 12/02/2019 Office Visit Oncology Lincoln Griffiths MD [address] [place], [place] [address] [phone] 12/08/2019 Office Visit Ophthalmology Yariel Tineo MD [address] [place] [address] [address] [place], [place] [address] 02/08/2020 Office Visit Cardiology Robert Adkins MD [address] [place], [place] [address] [phone] Health Maintenance Due Date Last Done Comments [...] of this encounter Implants Implanted Type Area Roustabout Pusher Device Shelf Model / Identifier Expiration Serial / Date Lot Prolene Mesh MESH Right: Ethicon 12/20/2020 PMSK / Implanted: Qty: 1 on 07/04/2016 by Alfonso Martinez MD at [facility] [employer]dom[employer] PMSK / [id number] Pacemaker PACEMAKER Stent-06/24/2016 Implanted: 06/24/2016 (Quantity not on file) documented as of this encounter Results Not on filedocumented in this encounter Visit Diagnoses Diagnosis Type 2 diabetes mellitus with cardiac co mplication documented in this encounter Insurance Payer Benefit Plan / Subscriber ID Effective Phone Address T e Group Dates [facility] [id number] 2017-Lux [phone] [address] HMO HEALTH CHOICE HEALTH CHOICE 86 [phone] [place] [address] documented as of this encounter Advance Directives Name Relationship Healthcare Agent Communication Relationship Keaton Nelson Spouse Primary healthcare agent Elisabeth Soliz Sibling [address] [place] [phone] agent (Mobile)
--- OUTSIDE RECORDS SUMMARY | 2019-11-07 22:37 | XMS REPORT | Summary of Care ---
:1970 Author Organization [facility] - Health Address [address] [place] [address] Care Team Providers Name Role Phone Elmer Andrade MD Primary Care Provider NAVJOT Espinoza Unavailable Unavailable MD Rocco Unavailable Mary Quezada MD Unavailable Genna Anand REPORT DEVELOPER Unavailable Unavailable MD Casimiro Unavailable Ricardo Rodriguez DO Gis Analyst Developer Reason for Visit Reason Comments LAB WORK Auth/Cert Status Reason Specialty Diagnoses / Procedures Referred By Genna bey Referred To Contact Phlebotomy Diagnoses Hyperkalemia Adc Pob Lab Draw Procedures CMP Professional Office Building [address] [facility] [address], [address] [place] [address] Phone: Fax: Encounter Details Date Type Department Care Team Description 09/11/2019 Classroom Technology Technician Visit [facility] Health Professional Lilibeth Castellanos MD [address] [place] [address] [address] [place] [address] Hyperkalemia Office Building Pob, Adc Lab Main Phlebotomy Lab Professional Office Building [address] [place] [address] , [address] [place] [address] Allergies Active Allergy Reactions Severity Noted Date Comments Adhesive Tape-Silicones Other - See comments 7 Paper tape only !! Tears skin. Other reaction( s): Other (see comm ents) Paper tape only !! Tears skin. Alfuzosin Unknown - See 05/04/2015 comments Beta-Blockers Other - See comments Medium 12/05/2015 Per arnav tient "heart (Beta-Adrenergic rate drop, Blocking Agts) [...] needed for Nausea and Vomiting (N/V). Insulin [place], Use as directed, 1x 100 Each 1 [...] Added automatically from request for lillian lawson [id number] Syncope 04/01/2017 Chest pain, rule out acute [...] 06/12/2016 Coronary artery disease involving ment[place] coronary briseyda ry of mentasta heart 06/12/2016 with angina pectoris [place] (myocardial [...] Office Visit Internal Medicine Lilibeth Andrade MD [address] [place] [address] [phone] 10/19/2019 Office Visit Endocrinology Diabetes & JonesTre MD [address] [address] [phone] 10/27/2019 Office Visit Pulmonary Disease Max Aguiar MD [address] [place] [address] [phone] 11/02/2019 Office Visit Internal Medicine Lilibeth Andrade MD [address] [place] [address] [phone] 11/30/2019 Office Visit Cardiology Practitioner, Heart Failure Nurse 12/02/2019 Appointment Cardiac Electrophysiology Outpt-Simi, Pacemaker/Icd 12/02/2019 Office Visit Oncology Lincoln Griffiths MD [address] [place], [place] [address] [phone] 12/08/2019 Office Visit Ophthalmology Yariel Tineo MD [address] [place] [address]. [place], [place] [address] 02/08/2020 Office Visit Cardiology Robert Adkins MD [address] [place], [place] [address] Name Type Priority Associated Diagnoses Date/Ti me COMP. METABOLIC PANEL LAB Routine Hyperkalemia 2019 9:00 AM CDT (21220) Health Maintenance Due Date Last Done Comments [...] of this encounter Implants Implanted Type Area Pharmacy Coordinator Device Shelf Model / Identifier Expiration Serial / Date Lot Prolene Mesh MESH Right: Ethicon 12/20/2020 PMSK / Implanted: Qty: 1 on 07/04/2016 by Alfonso Martinez MD at [facility] Abdomen [employer]orporated PMSK / [id number] Pacemaker PACEMAKER Stent-06/24/2016 Implanted: 06/24/2016 (Quantity not on file) documented as of this encounter Results Not on filedocumented in this encounter Visit Diagnoses Diagnosis Hyperkalemia Hyperpotassemia documented in this encounter Insurance Payer Benefit Plan / Subscriber ID Effective Phone Address Kellee adame Group Dates [facility] [id number] 2017-Lux [phone] [address] [employer] 86 [phone] [place] [address] (Home) [place] [address] documented as of this encounter Advance Directives Name Relationship Healthcare Agent Communication Relationship Pandagutierrez Leslie Spouse Primary healthcare agent Elisabeth Soliz Sibling First [facility] healthcare [phone] agent (Mobile)
--- OUTSIDE RECORDS SUMMARY | 2019-11-07 22:38 | XMS REPORT | Summary of Care ---
:1970 Author Organization [facility] Address [address] [place] [address] Care Team Providers Name Role Phone Elmer Andrade MD Primary Care Provider NAVJOT Espinoza Unavailable Unavailable MD Rocco Unavailable Mary Quezada MD Unavailable Genna Anand Unavailable Unavailable MD Casimiro Unavailable Ricardo Rodriguez DO Tour Production Supervisor Encounter Details Date Type Department Care Team Description 08/11/2019 Patient Secure Ms [facility] Doctor Unassigned, [address] [place] [address] [place] [address] [address] [place] [address] [place] [address] Allergies Active Allergy Reactions Severity Noted Date [...] for Pain (scale 7-10). atorvastatin (LIPITOR) 40 mg Take 1 tablet [...] with breakfast. diabetes mellitus with cardiac complication Ranolazine 1,000 [...] %) area(s) daily. gel pumpIndications: Low testosterone cyanocobalamin (VITAMIN 1 mL by Intramuscular 12 mL 3 05/24 Active B-12) 1,000 mcg/mL route every 2 (two) injectionIndications: weeks. Vitamin B12 deficiency clindamycin 1 % Apply to affected 60 mL 6 06/11/2019 Active solutionIndications: area(s) 2 (two) times Folliculitis daily. ondansetron (ZOFRAN ODT) 4 Take 1 tablet by mouth 14 tablet 0 06/23/2019 Active mg disintegrating every 8 (eight) hours tabletIndications: as needed for Nausea Hyperglycemia and Vomiting (N/V). Insulin [place], Disposable, Use as directed, 1x 100 Each 1 0 06/25/2019 Active (RELION PEN NEEDLES) 32 daily, DX:E11.9 gauge x /32" Ndle Insulin Glargine (LANTUS inject 12-14 Units 3 mL 0 2019 Active SOLOSTAR U-100 INSULIN) 100 under the skin daily. unit/mL (3 mL) injection desvenlafaxine succinate Take 2 tablets by mouth [...] Added automatically from request for lillian lawson [id number] Syncope 04/01/2017 Chest pain, rule out acute [...] Chest pain 06/12/2016 Coronary artery disease involving [place] coronary briseyda ry of [place] heart 06/12/2016 with angina pectoris [place] (myocardial [...] Internal Medicine Lilibeth Andrade MD [address] [address] [phone] 10/19/2019 Office Visit Endocrinology Diabetes & Tre Jones MD [address] [place] [address] [phone] 10/27/2019 Office Visit Pulmonary Disease Max Aguiar MD [address] [address] [phone] 11/02/2019 Office Visit Internal Medicine Lilibeth Andrade MD [address] [address] [phone] 11/30/2019 Office Visit Cardiology Practitioner, Heart Failure Nurse 12/02/2019 Appointment Cardiac Electrophysiology Outpt-Simi, Pacemaker/Icd 12/02/2019 Office Visit Oncology Lincoln Griffiths MD [address] [place], [place] [address] [phone] 12/08/2019 Office Visit Ophthalmology Yariel Tineo MD [address] [place] [address]. [place], [place] [address] 02/08/2020 Office Visit Cardiology Robert Adkins MD [address] [facility] [place] [address] Health Maintenance Due Date [...] of this encounter Implants Implanted Type Area Tooth Cutter Spur Device Shelf Model / Identifier Expiration Serial / Date Lot Prolene Mesh MESH Right: Ethicon 12/20/2020 PMSK / Implanted: Qty: 1 on 07/04/2016 by Alfonso Martinez MD at [facility] Abdomen [employer]orporated PMSK / [id number] Pacemaker PACEMAKER Stent-06/24/2016 Implanted: 06/24/2016 (Quantity not on file) documented as of this encounter Results Not on filedocumented in this encounter Insurance Payer Benefit Plan / Subscriber ID Effective Phone Address T e Group Dates [facility] [id number] 2017-Prese [phone] [address] HMO HEALTH CHOICE HEALTH CHOICE 86 [phone] [place] [address] documented as of this encounter Advance Directives Name Relationship Healthcare Agent Communication Relationship Keaton Thomasjanae Spouse Primary healthcare agent Elisabeth Soliz Sibling First [place] [phone] agent (Mobile)
--- OUTSIDE RECORDS SUMMARY | 2019-11-07 22:39 | XMS REPORT | Summary of Care ---
:1970 Author Organization [facility] Address [address] [place] [address] Care Team Providers Name Role Phone Elmer Andrade MD Primary Care Provider NAVJOT Espinoza Unavailable Unavailable MD Rocco Unavailable Mary Quezada MD Unavailable Genna Anand CONCRETE PUMP OPERATOR Unavailable Unavailable MD Casimiro Unavailable Ricardo Rodriguez DO Child Welfare Assistant Reason for Visit Reason Comments TIRED Fatigue Encounter Details Date Type Department Care Team Description 09/12/2019 Nurse Triage [facility] Catherine Talavera RN TIRED; Fatigue [address] [phone] Allergies Active Allergy Reactions Severity Noted Date [...] as of this encounter (statuses as of 09/13/2019) Medications Medication Sig Dispensed Refills Start Date [...] needed for Nausea and Vomiting (N/V). Insulin [place], Use as directed, 1x 100 Each 1 [...] as of this encounter (statuses as of 09/13/2019) Active Problems Problem Noted Date Acute hypokalemia [...] Added automatically from request for lillian lawson [id number] Syncope 04/01/2017 Chest pain, rule out acute [...] pain 06/12/2016 Coronary artery disease involving red devil coronary briseyda ry of red devil heart 06/12/2016 with angina pectoris [place] (myocardial infarction) 06/12/2016 Type 2 diabetes mellitus without complication 06/12/20 16 Essential hypertension 06/12/2016 History of alcohol abuse Overview: Sober for 16 years documented as of this encounter (statuses as of 09/13/2019) Resolved Problems Problem Noted Date Resolved Date Chest pain radiating to arm 08/08/2016 08/19/2016 Abdominal pain 07/19/2016 08/19/2016 History of epidural anesthesia 07/04/2016 7 Morbid obesity with body mass index of 50 or higher 06/26/19 17 08/19/2016 Obesity (BMI 30-39.9) 06/12/2016 08/19/2016 documented as of this encounter (statuses as of 09/13/2019) Immunizations Name Administration Dates Next Due Td [...] Visit Internal Medicine Lilibeth Andrade MD 146 [facility] 103 [place], [place] [address] [phone] 10/19/2019 Office Visit Endocrinology Diabetes & Tre Jones MD Metabolism [address] [place] [address] [phone] 10/27/2019 Office Visit Pulmonary Disease Max Aguiar MD 146 [facility] 106 [place], [place] [address] [phone] 11/02/2019 Office Visit Internal Medicine Lilibeth Andrade MD 146 [facility] 103 [place], [place] [address] [phone] 11/30/2019 Office Visit Cardiology Practitioner, Heart Failure Nurse 12/02/2019 Appointment Cardiac Electrophysiology Outpt-Simi, Pacemaker/Icd 12/02/2019 Office Visit Oncology Lincoln Griffiths MD [address] [place], [place] [address] [phone] 12/08/2019 Office Visit Ophthalmology Yariel Tineo MD [address] [place], [place] [address]d. [place], [place] [address] 02/08/2020 Office Visit Cardiology Robert Adkins MD [address] [place], [place] [address] Health Maintenance Due Date [...] 2019 ( Insurance / Financial) CREATININE (SERUM) 09/10/2020 09/11/2019, 08/31/2019, 08/27/2019, Additional history exists COLONOSCOPY 04/22/2027 04/22/2017 DTaP,Tdap,and Td Vaccines 06/26/2027 06/26/2017, 03/19/2015 Postponed from (1 - Tdap) 1980 (Not Indicated) documented as of this encounter Implants Implanted Type Area Software Applications Specialist Device Shelf Model / Identifier Expiration Serial / Date Lot Prolene Mesh MESH Right: Ethicon 12/20/2020 PMSK / Implanted: Qty: 1 on 07/04/2016 by Alfonso Martinez MD at [facility] Abdomen Incorporated PMSK / [id number] Pacemaker PACEMAKER Stent-06/24/2016 Implanted: 06/24/2016 (Quantity not on file) documented as of this encounter Results Not on filedocumented in this encounter Insurance Payer Benefit Plan / Subscriber ID Effective Phone Address T ype Group Dates [facility] [id number] 2017-Prese [phone] [address] HMO HEALTH CHOICE HEALTH CHOICE nt 86 [phone] [place] [address] documented as of this encounter Advance Directives Name Relationship Healthcare Agent Communication Relationship Keaton Thomasjanae Spouse Primary healthcare agent Elisabeth Soliz Sibling First alternate healthcare [phone] agent (Mobile)
--- OUTSIDE RECORDS SUMMARY | 2019-11-07 22:39 | XMS REPORT | Summary of Care ---
:1970 Author Organization [facility] Address [address] [place] [address] Care Team Providers Name Role Phone Elmer Andrade MD Primary Care Provider NAVJOT Espinoza Unavailable Unavailable MD Rocco Unavailable Mary Quezada MD Unavailable Genna Anand Unavailable Unavailable MD Casimiro Unavailable Ricardo Rodriguez DO Jigmaker Reason for Visit Reason Comments Assessment Encounter Details Date Type Department Care Team Description 09/13/2019 Telephone [facility] Cardiology, Robert Adkins, Assessment [facility] 250 [facility] 410 301 [facility] [id number] [place] [address] [place], [place] [id number] Allergies Active Allergy Reactions Severity Noted Date [...] for Nausea Hyperglycemia and Vomiting (N/V). Insulin [place], Use as directed, 100 Each 1 06/25/2019 [...] KCL 20 mEq Take 3 tablets by 270 tablet 2 09/13/2019 Active tabletIndications: mouth 3 (three) Hypokalemia times daily. KCL 20 mEq Take 2 tablets by 180 tablet 0 08/19/201908/22 Discontinued tabletIndications: mouth 3 (three) 3/20 (Reorder) Hypokalemia times daily for 20 30 days. documented as of this encounter [...] Added automatically from request for lillian lawson [id number] Syncope 04/01/2017 Chest pain, rule out acute [...] of [place] heart 06/12/2016 with angina pectoris [place] (myocardial [...] Date Former Smoker Cigarettes 1 30 Quit: 01/04/20 15 Smokeless Tobacco: Never Used Comments: quit [...] Visit Internal Medicine Lilibeth Andrade MD [address] 77 15 [phone] 10/19/2019 Office Visit Endocrinology Diabetes & JonesTre MD [facility] 2660 [place] [address] [phone] 10/27/2019 Office Visit Pulmonary Disease Max Aguiar MD [address] [place] [address] 775 15 [phone] 11/02/2019 Office Visit Internal Medicine Lilibeth Andrade MD [address] [place] [address] 77 15 11/30/2019 Office Visit Cardiology Practitioner, Heart Failure Nurse 12/02/2019 Appointment Cardiac Electrophysiology Outpt-Simi, Pacemaker/Icd 12/02/2019 Office Visit Oncology Lincoln Griffiths MD 1515 [place], [place] [address] [phone] 12/08/2019 Office Visit Ophthalmology Yariel Tineo MD [address] [place] [address] [address] [place], [place] [address] 02/08/2020 Office Visit Cardiology Robert Adkins MD 301 [facility] [address] [place], [place] [address] Name Type Priority Associated Diagnoses Order S chedule BASIC METABOLIC PANEL LAB Routine Chronic diastolic h eart Expected: 09/13/2019, ([id number])(NA, K, CL, CO2, failure Expi res: 09/12/2020 GLUCOSE, BUN, CREATININE, CA) MAGNESIUM LAB Routine Chronic diastolic heart Expe cted: 09/13/2019, failure Expires: 2020 N-TERMINAL PRO-BNP LAB Routine Chronic diastolic hear t Expected: 09/13/2019, failure Expires: 2020 Health Maintenance Due Date [...] of this encounter Implants Implanted Type Area Non Clinical Advisor Device Shelf Model / Identifier Expiration Serial / Date Lot Prolene Mesh MESH Right: Ethicon 12/20/2020 PMSK / Implanted: Qty: 1 on 07/04/2016 by Alfonso Martinez MD at [facility] [employer] PMSK / [id number] Pacemaker PACEMAKER Stent-06/24/2016 Implanted: 06/24/2016 (Quantity not on file) documented as of this encounter Results Not on filedocumented in this encounter Visit Diagnoses Diagnosis Chronic diastolic heart failure - Primar y Hypokalemia Hypopotassemia documented in this encounter Insurance Payer Benefit Plan / Subscriber ID Effective Phone Address T e Group Dates [facility] [id number] 2017-Lux [phone] [address] [employer] [place] [phone] [place] [address] documented as of this encounter Advance Directives Name Relationship Healthcare Agent Communication Relationship Pandagutierrez Leslie Spouse Primary healthcare agent Elisabeth Soliz Sibling First [facility] [phone] agent (Mobile)
--- OUTSIDE RECORDS SUMMARY | 2019-11-07 22:40 | XMS REPORT | Summary of Care ---
:[address] [facility] - [facility] Address [address] [place] [address] Care Team Providers Name Role Phone Elmer Andrade MD Primary Care Provider NAVJOT Espinoza Unavailable Unavailable MD Rocco Unavailable Mary Quezada MD Unavailable Genna Anand DIRECTOR OF MATERNITY SERVICES Unavailable Unavailable MD Casimiro Unavailable Ricardo Rodriguez DO Political Cartoonist Reason for Visit Reason Comments LAB Encounter Details Date Type Department Care Team Description 09/16/2019 Lead Pastor Visit [facility] Vonda Kaur Rj en, DIRECTOR OF MATERNITY SERVICES [address] [facility] [id number] [place] [address] Chronic diastolic Professional Office 2, Adc Lab heart failure Building Phlebotomy Lab Professional Office Building 146 [facility] , [address] [place] [address] Allergies Active Allergy Reactions Severity [...] as of this encounter (statuses as of 09/16/2019) Medications Medication Sig Dispensed Refills Start Date [...] needed for Nausea and Vomiting (N/V). Insulin [place], Use as directed, 1x 100 Each 1 [...] 0 20 Hypokalemia daily for 30 days. aMILoride 5 mg [...] tabletIndications: mouth 3 (three) Hypokalemia times daily. documented as of this encounter (statuses as of 09/16/2019) Active Problems Problem Noted Date Acute hypokalemia [...] Added automatically from request for lillian lawson [id number] Syncope 04/01/2017 Chest pain, rule out acute [...] Chest pain 06/12/2016 Coronary artery disease involving [place] coronary briseyda ry of [place] heart 06/12/2016 with angina pectoris [place] (myocardial infarction) 06/12/2016 Type 2 diabetes mellitus without complication 06/12/20 16 Essential hypertension 06/12/2016 History of alcohol abuse Overview: Sober for 16 years documented as of this encounter (statuses as of 09/16/2019) Resolved Problems Problem Noted Date Resolved Date Chest pain radiating to arm 08/08/2016 08/19/2016 Abdominal pain 07/19/2016 08/19/2016 History of epidural anesthesia 07/04/2016 7 Morbid obesity with body mass index of 50 or higher 06/26/19 17 08/19/2016 Obesity (BMI 30-39.9) 06/12/2016 08/19/2016 documented as of this encounter (statuses as of 09/16/2019) Immunizations Name Administration Dates Next Due Td [...] Visit Internal Medicine Lilibeth Andrade MD 146 [facility] 103 [place], [place] [address] [phone] 10/19/2019 Office Visit Endocrinology Diabetes & Tre Jones MD Metabolism 2660 [place] [address] [phone] 10/27/2019 Office Visit Pulmonary Disease Max Aguiar MD 146 [facility] 106 [place], [place] [address] [phone] 11/02/2019 Office Visit Internal Medicine Lilibeth Andrade MD [address] 775 15 [phone] 11/30/2019 Office Visit Cardiology Practitioner, Heart Failure Nurse 12/02/2019 Appointment Cardiac Electrophysiology Outpt-Simi, Pacemaker/Icd 12/02/2019 Office Visit Oncology Lincoln Griffiths MD 1515 [place], [place] [address] [phone] 12/08/2019 Office Visit Ophthalmology Yariel Tineo MD [address] [place] [address] [address] [place], [place] [address] 02/08/2020 Office Visit Cardiology Robert Adkins MD 301 [facility] [address] [place], [place] [address] Health Maintenance Due Date [...] of this encounter Implants Implanted Type Area Bilingual Account Manager Device Shelf Model / Identifier Expiration Serial / Date Lot Prolene Mesh MESH Right: Ethicon 12/20/2020 PMSK / Implanted: Qty: 1 on 07/04/2016 by Alfonso Martinez MD at [facility] [employer] PMSK / [id number] Pacemaker PACEMAKER Stent-06/24/2016 Implanted: 06/24/2016 (Quantity not on file) documented as of this encounter Results Not on filedocumented in this encounter Visit Diagnoses Diagnosis Chronic diastolic heart failure documented in this encounter Insurance Payer Benefit Plan / Subscriber ID Effective Phone Address T ype Group Dates [facility] [id number] 2017-Lux [phone] HMO HEALTH [employer] HEALTH CHOICE nt [phone] [place] [address] documented as of this encounter Advance Directives Name Relationship Healthcare Agent Communication Relationship Keaton Joniisabeljanae Spouse Primary healthcare agent Elisabeth Soliz Sibling First [facility] agent (Mobile)
--- OUTSIDE RECORDS SUMMARY | 2019-11-07 22:41 | XMS REPORT | Summary of Care ---
:1970 Author Organization [facility] Address [address] [place] [address] Care Team Providers Name Role Phone Elmer Andrade MD Primary Care Provider NAVJOT Espinoza Unavailable Unavailable MD Rocco Unavailable Mary Quezada MD Unavailable Genna AnadnP Unavailable Unavailable MD Casimiro Unavailable Ricardo Rodriguez DO Care Technician Reason for Visit Reason Comments Results Encounter Details Date Type Department Care Team Description 09/16/2019 Telephone [facility] Cardiology- [facility] Vonda kirkland FNP Results [address] [id number] [address] [place] [address] [place] [address] Allergies Active Allergy Reactions Severity Noted Date [...] as of this encounter (statuses as of 09/17/2019) Medications Medication Sig Dispensed Refills Start Date [...] needed for Nausea and Vomiting (N/V). Insulin [place], Use as directed, 1x 100 Each 1 [...] as of this encounter (statuses as of 09/17/2019) Active Problems Problem Noted Date Acute hypokalemia [...] Added automatically from request for lillian lawson [id number] Syncope 04/01/2017 Chest pain, rule out acute [...] Chest pain 06/12/2016 Coronary artery disease involving [place] coronary briseyda ry of [place] heart 06/12/2016 with angina pectoris [place] (myocardial infarction) 06/12/2016 Type 2 diabetes mellitus without complication 06/12/20 16 Essential hypertension 06/12/2016 History of alcohol abuse Overview: Sober for 16 years documented as of this encounter (statuses as of 09/17/2019) Resolved Problems Problem Noted Date Resolved Date Chest pain radiating to arm 08/08/2016 08/19/2016 Abdominal pain 07/19/2016 08/19/2016 History of epidural anesthesia 07/04/2016 7 Morbid obesity with body mass index of 50 or higher 06/26/19 17 08/19/2016 Obesity (BMI 30-39.9) 06/12/2016 08/19/2016 documented as of this encounter (statuses as of 09/17/2019) Immunizations Name Administration Dates Next Due Td [...] Description 10/11/2019 Nurse Visit Anti-coagulation Clinic Nurse, Lindseyc Antico ag 10/12/2019 Office Visit Internal Medicine Lilibeth Andrade MD 146 [facility] 103 [place], [place] [address] [phone] 10/19/2019 Office Visit Endocrinology Diabetes & Tre Jones MD [facility] 2660 [place] [address] [phone] 10/27/2019 Office Visit Pulmonary Disease Max Aguiar MD 146 [facility] 106 [place], [place] [address] [phone] 11/02/2019 Office Visit Internal Medicine iLlibeth Andrade MD 146 [facility] 103 [place], [place] [address] [phone] 11/30/2019 Office Visit Cardiology Practitioner, Heart Failure Nurse 12/02/2019 Appointment Cardiac Electrophysiology Outpt-Simi, Pacemaker/Icd 12/02/2019 Office Visit Oncology Lincoln Griffiths MD 1515 [place], [place] [address] [phone] 12/08/2019 Office Visit Ophthalmology Yariel Tineo MD [address] [facility] [place] [place] [address] 02/08/2020 Office Visit Cardiology Robert Adkins MD 301 [facility] [address] 570 [place], [place] [address] Health Maintenance Due Date [...] 2019 ( Insurance / Financial) CREATININE (SERUM) 09/15/2020 09/16/2019, 09/11/2019, 08/31/2019, Additional history exists COLONOSCOPY 04/22/2027 04/22/2017 DTaP,Tdap,and Td Vaccines 06/26/2027 06/26/2017, 03/19/2015 Postponed from (1 - Tdap) 1980 (Not Indicated) documented as of this encounter Implants Implanted Type Area Fireworks Display Specialist Device Shelf Model / Identifier Expiration Serial / Date Lot Prolene Mesh MESH Right: Ethicon 12/20/2020 PMSK / Implanted: Qty: 1 on 07/04/2016 by Alfonso Martinez MD at [facility] [employer] PMSK / [id number] Pacemaker PACEMAKER Stent-06/24/2016 Implanted: 06/24/2016 (Quantity not on file) documented as of this encounter Results Not on filedocumented in this encounter Insurance Payer Benefit Plan / Subscriber ID Effective Phone Address T ype Group Dates [facility] [id number] 2017-Lux [phone] HMO HEALTH [employer] HEALTH CHOICE [phone] [place] [address] documented as of this encounter Advance Directives Name Relationship Healthcare Agent Communication Relationship Keaton Thomasjanae Spouse Primary healthcare agent Elisabeth Soliz Sibling First alternate healthcare agent (Mobile)
--- OUTSIDE RECORDS SUMMARY | 2019-11-07 22:42 | XMS REPORT | Summary of Care ---
:1970 Author Organization [facility] - Health Address [address] [place] [address] Care Team Providers Name Role Phone Elmer Andrade MD Primary Care Provider NAVJOT Espinoza Unavailable Unavailable MD Rocco Unavailable Mary Quezada MD Unavailable Genna Anand Unavailable Unavailable MD Casimiro Unavailable Ricardo Rodriguez DO Vfx Artist Encounter Details Date Type Department Care Team Description 08/30/2019 Hospital Encounter [facility] Ho Garcia MD 301 [place] [address] EP Device Clinic Simi, Remote Device Check At Home - The [address], [address] [place] [address] Allergies Active Allergy Reactions Severity Noted Date [...] as of this encounter (statuses as of 09/22/2019) Medications Medication Sig Dispensed Refills Start Date [...] needed for Nausea and Vomiting (N/V). Insulin [place], Use as directed, 1x 100 Each 1 [...] disorder, without psychotic features, Generalized anxiety disorder aMILoride 5 mg Take 2 tablets by [...] as of this encounter (statuses as of 09/22/2019) Active Problems Problem Noted Date Acute hypokalemia [...] Added automatically from request for lillian lawson [id number] Syncope 04/01/2017 Chest pain, rule out acute [...] Chest pain 06/12/2016 Coronary artery disease involving [place] coronary briseyda ry of [place] heart 06/12/2016 with angina pectoris [place] (myocardial infarction) 06/12/2016 Type 2 diabetes mellitus without complication 06/12/20 16 Essential hypertension 06/12/2016 History of alcohol abuse Overview: Sober for 16 years documented as of this encounter (statuses as of 09/22/2019) Resolved Problems Problem Noted Date Resolved Date Chest pain radiating to arm 08/08/2016 08/19/2016 Abdominal pain 07/19/2016 08/19/2016 History of epidural anesthesia 07/04/2016 7 Morbid obesity with body mass index of 50 or higher 06/26/19 17 08/19/2016 Obesity (BMI 30-39.9) 06/12/2016 08/19/2016 documented as of this encounter (statuses as of 09/22/2019) Immunizations Name Administration Dates Next Due Td [...] Lilibeth Andrade MD 146 [address] [facility] 103 [place], [place] [address] [phone] 10/19/2019 Office Visit Endocrinology Diabetes & Tre Jones MD Metabolism 2660 [place] [address] 10/27/2019 Office Visit Pulmonary Disease Max Aguiar MD 146 [address] [facility] 106 [place], [place] [address] [phone] 11/02/2019 Office Visit Internal Medicine Lilibeth Andrade MD 146 [facility] [address] [place], [place] [address] [phone] 11/30/2019 Office Visit Cardiology Practitioner, Heart Failure Nurse 12/02/2019 Appointment Cardiac Electrophysiology Outpt-Simi, Pacemaker/Icd 12/02/2019 Office Visit Oncology Lincoln Griffiths MD [address] [place], [place] [address] [phone] 12/08/2019 Office Visit Ophthalmology Yariel Tineo MD [address] [place], [place] [address] 02/08/2020 Office Visit Cardiology Robert Adkins MD [address] [place], [place] [address] Health Maintenance Due Date [...] of this encounter Implants Implanted Type Area Matrix Supervisor Device Shelf Model / Identifier Expiration Serial / Date Lot Prolene Mesh MESH Right: Ethicon 12/20/2020 PMSK / Implanted: Qty: 1 on 07/04/2016 by Alfonso Martinez MD at [facility] [employer] PMSK / [id number] Pacemaker PACEMAKER Stent-06/24/2016 Implanted: 06/24/2016 (Quantity not on file) documented as of this encounter Results Not on filedocumented in this encounter Insurance Payer Benefit Plan / Subscriber ID Effective Phone Address T ype Group Dates [facility] [id number] 2017-Lux [phone] [address] [employer] [facility] [employer] [phone] [place] [address] (Home) [place] [address] documented as of this encounter Advance Directives Name Relationship Healthcare Agent Communication Relationship Keaton Jonilynne Spouse Primary healthcare agent Elisabeth Soliz Sibling First [facility] healthcare agent (Mobile)
--- OUTSIDE RECORDS SUMMARY | 2019-11-07 22:42 | XMS REPORT | Summary of Care ---
:1970 Author Organization [facility] - [facility] Address [address] [place] [address] Care Team Providers Name Role Phone Elmer Andrade MD Primary Care Provider NAVJOT Espinoza Unavailable Unavailable MD Rocco Unavailable Mary Quezada MD Unavailable Genna Anand Unavailable Unavailable MD Casimiro Unavailable Ricardo Rodriguez DO Car Changer Encounter Details Date Type Department Care Team Description 08/13/2019 Patient [facility] Internal Doctor Hever hobson, [facility] [place] [facility] Pavilio n 301 [facility] [address] , [address] [place] [address] 555 105 [place] [address] Allergies Active Allergy Reactions Severity Noted Date [...] as of this encounter (statuses as of 09/18/2019) Medications Medication Sig Dispensed Refills Start Date [...] for Nausea Hyperglycemia and Vomiting (N/V). Insulin [place], Disposable, Use as directed, 1x 100 Each [...] as of this encounter (statuses as of 09/18/2019) Active Problems Problem Noted Date Acute hypokalemia [...] Added automatically from request for lillian renny [id number] Syncope 04/01/2017 Chest pain, rule out acute [...] 06/12/2016 Coronary artery disease involving [place] coronary briseyda ry of [place] heart 06/12/2016 with angina pectoris [place] (myocardial infarction) 06/12/2016 Type 2 diabetes mellitus without complication 06/12/20 16 Essential hypertension 06/12/2016 History of alcohol abuse Overview: Sober for 16 years documented as of this encounter (statuses as of 09/18/2019) Resolved Problems Problem Noted Date Resolved Date Chest pain radiating to arm 08/08/2016 08/19/2016 Abdominal pain 07/19/2016 08/19/2016 History of epidural anesthesia 07/04/2016 7 Morbid obesity with body mass index of 50 or higher 06/26/19 17 08/19/2016 Obesity (BMI 30-39.9) 06/12/2016 08/19/2016 documented as of this encounter (statuses as of 09/18/2019) Immunizations Name Administration Dates Next Due Td [...] Visit Internal Medicine Lilibeth Andrade MD [address] [place] [address] [phone] 10/19/2019 Office Visit Endocrinology Diabetes & JonesTre MD [place] [address] [place] [address] [phone] 10/27/2019 Office Visit Pulmonary Disease Max Aguiar MD [address] [place] [address] 775 15 11/02/2019 Office Visit Internal Medicine Lilibeth Andrade MD [address] [place] [address] 11/30/2019 Office Visit Cardiology Practitioner, Heart Failure Nurse 12/02/2019 Appointment Cardiac Electrophysiology Outpt-Simi, Pacemaker/Icd 12/02/2019 Office Visit Oncology Lincoln Griffiths MD 1515 [place], [place] [address] [phone] 12/08/2019 Office Visit Ophthalmology Yariel Tineo MD [address] [place] [address]. [place], [place] [address] 02/08/2020 Office Visit Cardiology Robert Adkins MD [address] [place] [address] [phone] Health Maintenance Due Date Last Done Comments [...] of this encounter Implants Implanted Type Area Entry Level Java Developer Device Shelf Model / Identifier Expiration Serial / Date Lot Prolene Mesh MESH Right: Ethicon 12/20/2020 PMSK / Implanted: Qty: 1 on 07/04/2016 by Alfonso Martinez MD at [facility] [employer] PMSK / [id number] Pacemaker PACEMAKER Stent-06/24/2016 Implanted: 06/24/2016 (Quantity not on file) documented as of this encounter Results Not on filedocumented in this encounter Insurance Payer Benefit Plan / Subscriber ID Effective Phone Address T ype Group Dates [facility] [id number] 2017-Lux [phone] HMO HEALTH CHOICE HEALTH CHOICE [phone] [place] [address] documented as of this encounter Advance Directives Name Relationship Healthcare Agent Communication Relationship Pandagutierrez Joniisabeljanae Spouse Primary healthcare agent Elisabeth Soliz Sibling First [place] [phone] agent (Mobile)
--- OUTSIDE RECORDS SUMMARY | 2019-11-07 22:43 | XMS REPORT | Summary of Care ---
:1970 Author Organization [facility] - Health Address [address] [place] [address] Care Team Providers Name Role Phone Elmer Andrade MD Primary Care Provider NAVJOT Espinoza Unavailable Unavailable MD Rocco Unavailable Mary Quezada MD Unavailable Genna Anand Unavailable Unavailable MD Casimiro Unavailable Ricardo Rodriguez DO Global Transportation Manager Encounter Details Date Type Department Care Team Description 08/23/2019 Orders Only [facility] Doctor Unassigned, No [address] [facility] [place] [address] [address] [place] [id number] Allergies Active Allergy Reactions Severity Noted Date [...] for Nausea Hyperglycemia and Vomiting (N/V). Insulin [place], Disposable, Use as directed, 1x 100 Each [...] Added automatically from request for lillian lawson [id number] Syncope 04/01/2017 Chest pain, rule out acute [...] Chest pain 06/12/2016 Coronary artery disease involving elem coronary briseyda ry of elem heart 06/12/2016 with angina pectoris VT (myocardial [...] Visit Internal Medicine Lilibeth Andrade MD [address] [address] [phone] 10/19/2019 Office Visit Endocrinology Diabetes & Tre Jones MD [address] [address] [phone] 10/27/2019 Office Visit Pulmonary Disease Max Aguiar MD [address] [address] [phone] 11/02/2019 Office Visit Internal Medicine Lilibeth Andrade MD 146 [facility] [address] [place], [place] [address] [phone] 11/30/2019 Office Visit Cardiology Practitioner, Heart Failure Nurse 12/02/2019 Appointment Cardiac Electrophysiology Outpt-Simi, Pacemaker/Icd 12/02/2019 Office Visit Oncology Lincoln Griffiths MD [address] [place], [place] [address] [phone] 12/08/2019 Office Visit Ophthalmology Yariel Tineo MD [address] [place] [address] [address] [place], [place] [address] 02/08/2020 Office Visit Cardiology Robert Adkins MD [address] [place], [place] [address] [phone] Health Maintenance Due Date Last Done Comments [...] of this encounter Implants Implanted Type Area Wind Energy Engineer Device Shelf Model / Identifier Expiration Serial / Date Lot Prolene Mesh MESH Right: Ethicon 12/20/2020 PMSK / Implanted: Qty: 1 on 07/04/2016 by Alfonso Martinez MD at [facility] [employer] PMSK / [id number] Pacemaker PACEMAKER Stent-06/24/2016 Implanted: 06/24/2016 (Quantity not on file) documented as of this encounter Procedures Procedure Name Priority Date/Time Associated Diagnosis Comme nts AUTHORIZATION FOR RELEASE Routine 08/23/2019 12:01 AM OF PHI WHOLESALE REPRESENTATIVE documented in this encounter Results Not on filedocumented in this encounter Insurance Payer Benefit Plan / Subscriber ID Effective Phone Address T ype Group Dates [facility] [id number] 2017-Lux [phone] HMO HEALTH CHOICE HEALTH CHOICE 86 [id number] [place] [address] documented as of this encounter Advance Directives Name Relationship Healthcare Agent Communication Relationship Keaton Thomasjanae Spouse Primary healthcare agent Elisabeth Soliz Sibling [place] [phone] agent (Mobile)
--- OUTSIDE RECORDS SUMMARY | 2019-11-07 22:44 | XMS REPORT | Summary of Care ---
:1970 Author Organization [facility] Address [address] [place] [id number] Care Team Providers Name Role Phone Elmer Andrade MD Primary Care Provider NAVJOT Espinoza Unavailable Unavailable MD Rocco Unavailable Mary Quezada MD Unavailable Genna AnandP Unavailable Unavailable MD Casimiro Unavailable Ricardo Rodriguez DO Nitrocellulose Maker Reason for Visit Reason Comments Follow-up Encounter Details Date Type Department Care Team Description 08/27/[address] [facility] [place], Gastroesophagea l reflux disease without esophagitis (Primary Dx); Gastroenterology- Johana Triplett Hiatal hernia; [facility] [address] Fatty liver disease, nonalco holic; [address] [facility] [address] Tubular adenoma of colon; [place], [place] Iron deficiency anemia [place] [phone] Allergies Active Allergy Reactions Severity Noted [...] as of this encounter (statuses as of 09/27/2019) Medications Medication Sig Dispensed Refills Start Date [...] for Nausea Hyperglycemia and Vomiting (N/V). Insulin [place], Use as directed, 100 Each 1 06/25/2019 [...] mouth 2 (two) Hiatal hernia times daily. clopidogrel (PLAVIX) 75 Take 1 tablet by 90 tablet 3 Discontinued mg tablet mouth daily. 03/12 (Reorde r) dulaglutide (TRULICITY) inject 0.75 mg 4 Syringe 4 02/24/201908/22 Discontinued 0.75 mg/0.5 mL under the skin (Reorder) PnIjIndications: Type 2 weekly. 20 diabetes mellitus with cardiac complication ARIPiprazole 15 mg Take 1 tablet by 30 tablet 1 07/15/201908/21 Discontinued tabletIndications: mouth daily. 02/09 (Reorder) Generalized anxiety 20 disorder, Panic disorder without agoraphobia, Severe episode of recurrent major depressive disorder, without psychotic features clonazePAM 1 mg Take 1 pill PO in 120 tablet 1 07/15/201908/21 Discontinued tabletIndications: the AM, 1 PO in 03/12 (Reorder) Generalized anxiety the afternoon, 1 20 disorder, Panic pill PO in the disorder without evening. May take agoraphobia additional 1 pill as needed acute anxiety. pantoprazole 40 mg EC Take 1 tablet by 180 tablet 0 07/21/2019 030 Discontinued tablet mouth 2 (two) 12/10 (Reord er) times daily. 20 eplerenone 50 mg Take 1 tablet by 60 tablet 0 08/19/201908/22 tabletIndications: mouth 2 (two) 02/09 Hypokalemia times daily for 20 30 days. KCL 20 mEq Take 2 tablets by 180 tablet 0 08/19/201908/22 Discontinued tabletIndications: mouth 3 (three) 09/09 (Reorder) Hypokalemia times daily for 20 30 days. aMILoride 5 mg Take 2 tablets by 120 tablet 0 08/25/2019 040 tabletIndications: mouth 2 (two) 09/09 Hypokalemia times daily for 20 30 days. documented as of this encounter (statuses as of 09/27/2019) Active Problems Problem Noted Date Acute hypokalemia [...] Added automatically from request for lillian lawson [id number] Syncope 04/01/2017 Chest pain, rule out acute [...] Chest pain 06/12/2016 Coronary artery disease involving nikolski coronary briseyda ry of n[place] heart 06/12/2016 with angina pectoris RI (myocardial infarction) 06/12/2016 Type 2 diabetes mellitus without complication 06/12/20 16 Essential hypertension 06/12/2016 History of alcohol abuse Overview: Sober for 16 years documented as of this encounter (statuses as of 09/27/2019) Resolved Problems Problem Noted Date Resolved Date Chest pain radiating to arm 08/08/2016 08/19/2016 Abdominal pain 07/19/2016 08/19/2016 History of epidural anesthesia 07/04/2016 7 Morbid obesity with body mass index of 50 or higher 06/26/19 17 08/19/2016 Obesity (BMI 30-39.9) 06/12/2016 08/19/2016 documented as of this encounter (statuses as of 09/27/2019) Immunizations Name Administration Dates Next Due Td [...] Comments Blood Pressure 103/67 08/27/2019 3:36 PM PARIMUTUEL TICKET CASHIER Pulse 76 08/27/2019 3:35 PM PARIMUTUEL TICKET CASHIER Temperature 36.2 C (97.1 F) 08/27/2019 3:35 PM PARIMUTUEL TICKET CASHIER Respiratory Rate - - Oxygen Saturation 98% 08/27/2019 3:35 PM PARIMUTUEL TICKET CASHIER Inhaled Oxygen Concentration - - Weight 132.6 kg (292 lb 6.4 oz) 08/27/2019 3:35 PM PARIMUTUEL TICKET CASHIER Height - - Body Mass Index 41.96 08/27/2019 10:54 AM PARIMUTUEL TICKET CASHIER documented in this encounter Progress Notes Ioana Mccarty MD - 08/27/2019 4:30 PM CST Gastroenterology & Hepatology Clinic Note Date: 08/27/2019 15:14 Chief Complaint: History of Present Illness: John Paul Nelson is a 46 year old male with DM, HTN, complications of atherosclerotic arterial disease (CADz and abdominal aortic aneurysm). He also suffers from diastolgic heart failure. His renal function is preserved. He was referred to our clinic in March 2017 because of diagnosis of iron deficiency anemia. His ferritin was normal, but serum iron was borderline low, TIBC was normal and % saturation was low. He was taking aspirin and plavix after his PCI in November 2015. Prior to starting his ASA and plavix he did not have issues with anemia. He presented to ER in [facility] with complaintsof severe chest pain. He followed up with Dr. Valiente wherein the patient reports he was told that his chest pain was due to vasospasm. His most recent PCI 01/02/19 demonstrated no occlusive coronary arterydisease. He was evaluated with esophagogastroduodenoscopy and colonoscopy in March 2017. His EGD demonstrated an irregular Z line and some hyperplastic polyps in the stomach. Colonoscopy demonstrated tubular adenomas only. No lesions with bleeding potential were seen on endoscopy. A small bowel study demonstrated some erosions in the stomach but otherwise no small bowel lesions with bleeding potential were seen. He was incidentally noted to have elevated liver enzymes during his initial evaluation. Liver biopsy was postponed until such time that we could hold his plavix. However, in the interim his liver enzymes returned to normal without intervention. He denied any symptoms of liver disease. He denied sequelae of portal hypertension nor stigmata of chronic liver disease. He has [facility] pacemaker place after hospitalization in 2019 for symptomatic bradycardia. His Ferritin was normal as of 05/25/19. His MCV is borderline low but has always been low since our earliest labs on record from [facility] in 2016 and his Hb is normal. His recent liver chemistries from 3 weeks ago indicated normal alk phos and ALT, AST. He was recently admitted with hypokalemia attributed to his diuretic medications. He has chronic reflux symptoms which are controlled on twice daily PPi. He did not have an obvious hiatal hernia on EGD but he did have hiatal hernia on CT abdomen imaging, which is the likely causefor his reflux. I suspect the irregular Z line seen on EGD was likely a reflection of proximal migration of the GE junction due to hernia. PREVIOUS INVESTIGATIONS: U/S (): CT Abd and pelvis (12/07/16): No acute findings are detected in CT scan of abdomen and pelvis. Changes of right inguinal hernia repair suspected with soft tissue noted in the right groin. Hepatosplenomegaly. Small lesion on the ventral surface of the lower pole of the left kidney, stable since the recent study of 12/09/2016. 3 cm infrarenal abdominal aortic aneurysm. MRI (): Liver Biopsy (): EGD (): Colonoscopy (): MRCP / ERCP (): VACCINATION STATUS: Past Medical History: He Past Medical History: Diagnosis Date AAA (abdominal aortic aneurysm) 3 cm Anxiety CHF (congestive heart failure) 2-liter fluid restriction; Dr. Valiente is vein pumper Degenerative disc disease, lumbar on CT scan Depression Diabetes Hernia s/p surgery 06/2016 History of alcohol abuse Stopped 1999 History of pernicious anemia HLD (hyperlipidemia) Hypertension Kidney stones calcium oxalate Lung nodule largest was 7mm on CT scan in 07/2017. smoking history. will need repeat in 6-12 months. RI (myocardial infarction) November 2015, 1 stent in RCA Microcytic anemia low MCV 2016 Right bundle branch block Uveitis Past Surgical History: He has a past surgical history that includes extracorporeal shockwave lithotripsy; inguinal herniorrhaphy (N/A, 07/04/2016); right heart catheterization (11/25/2016); lumbar epidural steroid injection (N/A, 03/10/2017); lumbar epidural steroid injection (N/A, 04/14/2017); esophago gastroduodenoscopy (Left, 04/22/2017); colonoscopy (Left, 04/22/2017); lumbar epidural steroid injection (N/A, 04/28/2017); pill cam (capsule endoscopy) (shx) (Left, 07/14/2017); exploration, carotid artery (Right, 10/29/2017); lumbar epidural steroid injection (N/A, 03/29/2019); lumbar epidural steroid injection (N/A, 04/12/2019); and lumbar epidural steroid injection (N/A, 04/26/2019). Social History: His reports that he quit smoking about 5 years ago. His smoking use included cigarettes. He has a 30.00 pack-year smoking history. He has never used smokeless tobacco. He reports that he does not drink alcohol or use drugs., , Family History: He family history includes Asthma in his father; CHF (congestive heart failure) in his father; COPD (chronic obstructive pulmonary disease) in his father; Cancer in his paternal grandmother; High cholesterol in his father and mother; Hypertension in his father and mother; Leukemia in his father and maternal uncle. Allergies: is allergic to beta-blockers (beta-adrenergic blocking agts); butorphanol; seroquel [quetiapine fumarate]; stadol [butorphanol tartrate]; tramadol; adhesive tape-silicones; alfuzosin; flomax[tamsulosin hcl]; gabapentin; meperidine; metaxalone; mirtazapine; quetiapine; spironolactone; tamsulosin; and trazodone. Medications: Prior to Admission Medications: (Not in a hospital admission) Scheduled Medications: Current Outpatient Medications Medication Sig Dispense Refill metOLazone 2.5 mg tablet Take 1 tablet by mouth 2 (two) times weekly on Friday and Friday. 15 tablet 2 aMILoride 5 mg tablet Take 2 tablets by mouth 2 (two) times daily for 30 days. 120 tablet 0 eplerenone 50 mg tablet Take 1 tablet by mouth 2 (two) times daily for 30 days. 60 tablet 0 KCL 20 mEq tablet Take 2 tablets by mouth 3 (three) times daily for 30 days. 180 tablet 0 pantoprazole 40 mg EC tablet Take 1 [...] the skin daily. 3 mL 0 Insulin [place], Disposable, (RELION PEN NEEDLES) 32 gauge x [...] 2 (two) times daily. 60 mL 6 PROMETHAZINE 25 mg tablet TAKE 1 TABLET BY MOUTH EVERY SIX HOURS NEEDED FOR NAUSEA OR VOMITING 30 tablet 11 testosterone (ANDROGEL) 20.25 mg/1.25 gram (1.62 %) [...] No current facility-administered medications for this visit. Review of Systems: General: No recent weight loss HEENT: No visual disturbances, hearing loss CVS: intermittent chest pain Resp: No dyspnea, asthma, chronic cough, nor hemoptysis GI: No dysphagia, odynophagia, nausea, vomiting, hematemesis, melena, nor hematochezia : No dysuria, hematuria, nor nocturia Musculoskeletal: No joint swelling, joint pain, cramping nor weakness Derm: No jaundice Neuro: No seizures nor stroke Endo: No diabetes nor thyroid disease Heme: No abnormal bruising nor bleeding Allergy: No urticaria, allergic rash, nor recurrent infections Psych: No depression, anxiety, nor mood swings Physical Exam: Temp: [36.7 C (98.1 F)] Pulse: [69] Resp: [16] BP: (110)/(72) SpO2 Readings from Last 3 Encounters: 07/25/17 97% 07/23/17 96% 07/16/17 99% There is no height or weight on file to calculate BMI. General: Alert, awake, calm, in no acute respiratory distress Skin: no vascular spiders, no juandice, no vitiligo, no rash, no excoriations Head: normocephalic, atraumatic, no wasting of temporalis or masseter musculature Eyes: PERRLA, EOMs intact, anicteric sclerae Mouth/Throat: no bleeding from mucous membranes, no oropharyngeal ulcers Lungs: no crackles nor wheeze Heart: regular rate and rhythm, normal S1 and S2, no murmur, gallop or rub Abdomen: soft, nondistended, nontender, no palpable liver or spleen Neurological: no asterixis or tremor Psychiatric: oriented to place, time, and person, normal affect. Labs: Recent Labs 08/17/19 1606 08/18/19 0333 08/25/19 0405 WBC 10.13 9.22 9.41 HGB 13.3 12.8 12.3 HCT 41.3 39.8 38.9 PLT 343* 314 310 MCV 77.8* 77.9* 78.6* MONOPCT 7.1 7.2 5.5 Recent Labs 08/25/19 0017 08/25/19 0405 08/25/19 1426 NA 136 138 140 K 5.4* 3.3* 4.0 CL 95* 95* 94* TCO2 34* 33* 36* BUN 19 19 19 CREAT 1.18 1.24 1.28* GLU 130* 200* 204* Recent Labs 08/28/18 2108 09/25/18 1558 05/02/19 1527 08/05/19 1446 08/08/19 1521 08/17/19 1606 08/18/19 0333 08/19/19 0321 08/25/19 0405 ALKPHOS 121 < > 129* < > 145* < > 110 113 -- 118 -- -- -- -- BILIT 0.4 < > 0.4 < > 0.5 < > 0.4 0.4 -- 0.5 -- -- -- -- BILIUNCON 0.0* -- 0.2 -- 0.3 -- -- -- -- -- -- -- -- -- TPRO 8.3* < > 8.4* < > 8.6* < > 7.6 7.8 -- 8.2 -- -- -- -- ALB 4.2 < > 4.3 < > 4.4 < > 4.1 4.3 -- 4.4 -- -- -- -- ALT 27 < > 26 < > 33 < > 23 25 -- 29 -- -- -- -- AST 34 < > 35 < > 29 < > 26 48* -- 32 -- -- -- -- PTINR 2.6 < > 2.9 < > -- < > -- -- < > -- < > 1.9 2.0 2.7 < > = values in this interval not displayed. New Imaging: Cultures: Urine: Blood: Assessment/Plan: 1. Anemia: Patient's anemia resolved with iron infusions and his Hb has been stable. We have been watching his ferritin level. His ferritin level is normal as of May 2019. I would recommend ferritin levels every 6 months. If it should decrease below 50ng/mL he would benefit from IV iron infusion.He has not had any melena nor rectal bleeding. His capsule endoscopy was negative for small bowel lesions with active bleeding or bleeding potential. He takes oral iron supplementation. 2. Abnormal liver chemistries: Autoimmune and metabolic work-up for liver disease was negative. Small bowel biopsies were negative for celiac disease. His liver chemistries normalized without specificintervention and have remained normal since. Follow liver chemistries every 6-12 months. 3. Tubular adenoma: Subcentimeter tubular adenoma removed on colonoscopy. Repeat colonoscopy in 2021. 4. Hiatal hernia: This is the likely explanation for his persistent reflux symptoms. Reflux is controlled on PPi but he takes 40mg twice a day. I would recommend that he take 40mg scheduled once daily in the evening (as his symptoms are mostly in the evening) and only take additional dose on the days he has breakthrough symptoms. 5. Coronary artery disease: Continues on ASA, plavix, lipitor, ranexa per Dr. Valiente. His last heart cath from December 2017 indicated non-occlusive CADz. 6. Disposition: Follow iron studies and ferritin every 6 months. His iron levels have been normal since he started taking oral iron supplementation. His liver chemistries have been stable for over a year. He does not need regularly scheduled follow-up with hepatology clinic. He may follow PRN. Signed: Ioana Mccarty MD Gastroenterology/ Transplant Hepatology Pager [phone] 08/27/2019 15:14 documented in this encounter Plan of Treatment Date Type Specialty Care Team Description 10/11/2019 Nurse Visit Anti-coagulation Clinic Nurse, Vtc Anticoag 10/12/2019 Telemedicine Visit Internal Medicine Lilibeth Andrade MD [address] [place] [address] [address] [place], [place] [address] 10/19/2019 Office Visit Endocrinology Diabetes & Tre Jones MD Metabolism [address] [place], [place] [address] 10/27/2019 Office Visit Pulmonary Disease Atanasov, Strahil T, MD [address] [facility] [address] [place], [place] [address] [phone] 11/02/2019 Telemedicine Visit Internal Medicine Lilibeth Andrade MD [address] [facility] [address] [place], [place] [address] [phone] 11/30/2019 Office Visit Cardiology Practitioner, Heart Failure Nurse 12/02/2019 Appointment Cardiac Electrophysiology Outpt-Simi, Pacemaker/Icd 12/02/2019 Office Visit Oncology Lincoln Griffiths MD [address] [place], [place] [address] [phone] 12/08/2019 Office Visit Ophthalmology Yariel Tineo MD [address] [place], [place] [address]vd. [place] [address] 02/08/2020 Office Visit Cardiology Robert Adkins MD [address] [facility] [id number] [place], [place] [id number] Health Maintenance Due Date Last Done Comments [...] this encounter Implants Implanted Type Area Data Migration Lead Device Shelf Model / Identifier Expiration Serial / Date Lot Prolene Mesh MESH Right: Ethicon 12/20/2020 PMSK / Implanted: Qty: 1 on 07/04/2016 by Alfonso Martinez MD at [facility] Abdomen Incorporated PMSK / [id number] Pacemaker PACEMAKER Stent-06/24/2016 Implanted: 06/24/2016 (Quantity not on file) documented as of this encounter Results Not on filedocumented in this encounter Visit Diagnoses Diagnosis Gastroesophageal reflux disease without esophagitis - Primary Esophageal reflux Hiatal hernia Diaphragmatic hernia without mention of obstruction or gangrene Fatty liver disease, nonalcoholic Other chronic nonalcoholic liver disease Tubular adenoma of colon Benign neoplasm of colon Iron deficiency anemia due to chronic bl ood loss Iron deficiency anemia secondary to bloo d loss (chronic) documented in this encounter Insurance Payer Benefit Plan / Subscriber ID Effective Phone Address T [employer] Dates [facility] [id number] 2017-Lux [phone] [address] [employer] [facility] [employer] HEALTH CHOICE 86 [phone] [place] [address] (Home) [place] [address] documented as of this encounter Advance Directives Name Relationship Healthcare Agent Communication Relationship Keaton Nelson Spouse Primary healthcare agent Elisabeth Soliz Sibling First alternate healthcare [phone] agent (Mobile)
--- OUTSIDE RECORDS SUMMARY | 2019-11-07 22:44 | XMS REPORT | Summary of Care ---
:1970 Author Organization [facility] Address [address] [place] [address] Care Team Providers Name Role Phone Elmer Andrade MD Primary Care Provider NAVJOT Espinoza Unavailable Unavailable MD Rocco Unavailable Mary Quezada MD Unavailable Genna AnandP Unavailable Unavailable MD Casimiro Unavailable Ricardo Rodriguez DO Cash Application Representative Reason for Visit Reason Comments Follow-up Encounter Details Date Type Department Care Team Description 08/27/2019 Office Visit [facility] [place], Gastroesophagea l reflux disease without esophagitis (Primary Dx); Gastroenterology- Johana Triplett Hiatal hernia; [facility] [address] [place] Fatty liver disease, nonalco holic; [address] [facility] S Tubular adenoma of colon; [place], [place] Iron deficiency anemia [place] [phone] Allergies Active Allergy Reactions Severity Noted [...] for Nausea Hyperglycemia and Vomiting (N/V). Insulin [place], Use as directed, 100 Each 1 06/25/2019 [...] Added automatically from request for lillian lawson [id number] Syncope 04/01/2017 Chest pain, rule out acute [...] Chest pain 06/12/2016 Coronary artery disease involving [place] coronary briseyda ry of [place] heart 06/12/2016 with angina pectoris [place] (myocardial [...] Comments Blood Pressure 103/67 08/27/2019 3:36 PM EAR PULL MACHINE OPERATOR Pulse 76 08/27/2019 3:35 PM EAR PULL MACHINE OPERATOR Temperature 36.2 C (97.1 F) 08/27/2019 3:35 PM EAR PULL MACHINE OPERATOR Respiratory Rate - - Oxygen Saturation 98% 08/27/2019 3:35 PM EAR PULL MACHINE OPERATOR Inhaled Oxygen Concentration - - Weight 132.6 kg (292 lb 6.4 oz) 08/27/2019 3:35 PM EAR PULL MACHINE OPERATOR Height - - Body Mass Index 41.96 08/27/2019 10:54 AM EAR PULL MACHINE OPERATOR documented in this encounter Progress Notes Ioana [...] with anemia. He presented to ER in [facility] with complaintsof severe chest pain. He followed [...] since our earliest labs on record from [facility] in 2016 and his Hb is normal. 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 smoking history. will need repeat in 6-12 months. [place] (myocardial infarction) November 2015, 1 stent in [...] the skin daily. 3 mL 0 Insulin [place], Disposable, (RELION PEN NEEDLES) 32 gauge x [...] Ioana Mccarty MD Gastroenterology/ Transplant Hepatology Pager [phone] 08/27/2019 15:14 documented in this encounter Plan of Treatment Date Type Specialty Care Team Description 10/11/2019 Nurse Visit Anti-coagulation Clinic Nurse, Vtc Anticoag 10/12/2019 Telemedicine Visit Internal Medicine Lilibeth Andrade MD [address] [place] [address] 103 [place], [place] [address] 10/19/2019 Office Visit Endocrinology Diabetes & Tre Jones MD Metabolism 26[address] [place], [place] 194103 10/27/2019 Office Visit Pulmonary Disease Atanasov, Strahil T, MD [address] [facility] 106 [place], [place] [address] [phone] 11/02/2019 Telemedicine Visit Internal Medicine Lilibeth Andrade MD [address] [facility] 103 [place], [place] [address] [phone] 11/30/2019 Office Visit Cardiology Practitioner, Heart Failure Nurse 12/02/2019 Appointment Cardiac Electrophysiology Outpt-Siim, Pacemaker/Icd 12/02/2019 Office Visit Oncology Lincoln Griffiths MD [address] [place], [place] [address] [phone] 12/08/2019 Office Visit Ophthalmology Yariel Tineo MD [address] [place], [place] [address] [address] 02/08/2020 Office Visit Cardiology Robert Adkins MD [address] [facility] [id number] [place], [place] [id number] Health Maintenance Due Date Last Done Comments [...] of this encounter Implants Implanted Type Area Welding Machine Operator Gas Metal Arc Device Shelf Model / Identifier Expiration Serial / Date Lot Prolene Mesh MESH Right: Ethicon 12/20/2020 PMSK / Implanted: Qty: 1 on 07/04/2016 by Alfonso Martinez MD at [facility] [employer] PMSK / [id number] Pacemaker PACEMAKER Stent-06/24/2016 Implanted: 06/24/2016 (Quantity not [...] Effective Phone Address T [employer] Dates [facility] [id number] 2017-Lux [phone] [employer] [facility] CHOICE [phone] [place] [address] (Home) [place] [address] documented as of this encounter Advance Directives Name Relationship Healthcare Agent Communication Relationship Keaton Nelson Spouse Primary healthcare agent Elisabeth Soliz Sibling First alternate healthcare [phone] agent (Mobile)
--- OUTSIDE RECORDS SUMMARY | 2019-11-07 22:45 | XMS REPORT | Summary of Care ---
:1970 Author Organization [facility] - Health Address [address] [place] [address] Care Team Providers Name Role Phone Elmer Andrade MD Primary Care Provider NAVJOT Espinoza Unavailable Unavailable MD Rocco Unavailable Mary Quezada MD Unavailable Genna Anand ESTATE ATTORNEY Unavailable Unavailable MD Casimiro Unavailable Ricardo Rodriguez DO Swatch Cutter Reason for Visit Reason Comments LAB WORK Auth/Cert Status Reason Specialty Diagnoses / Procedures Referred By Genna bey Referred To Contact Phlebotomy Diagnoses Hyperkalemia Adc Pob Lab Draw Procedures CMP Professional Office Building [address] [facility] [address], [address] [place] [address] Phone: Fax: Encounter Details Date Type Department Care Team Description 09/11/2019 Sales Administration Specialist Visit [facility] Health Professional Lilibeth Castellanos MD [address] [place] [address] Dr Lewis [address] [place] [address] Hyperkalemia Office Building Pob, Adc Lab Main Phlebotomy Lab Professional Office Building [address] [place] [address] , [address] [place] [address] Allergies Active Allergy Reactions Severity Noted [...] as of this encounter (statuses as of 09/30/2019) Medications Medication Sig Dispensed Refills Start Date [...] for Nausea Hyperglycemia and Vomiting (N/V). Insulin [place], Use as directed, 100 Each 1 06/25/2019 [...] 2 weekly. diabetes mellitus with cardiac complication eplerenone 50 mg Take 1 tablet by 60 tablet 0 08/19/2019 032 tabletIndications: mouth 2 (two) 8/20 Hypokalemia times daily for 20 30 days. KCL 20 mEq Take 2 tablets by 180 tablet 0 08/19/20192 Discontinued tabletIndications: mouth 3 (three) 3/20 (Reorder) Hypokalemia times daily for 20 30 days. aMILoride 5 mg Take 2 tablets by 120 tablet 0 08/25/2019 04/0 tabletIndications: mouth 2 (two) 3/20 Hypokalemia times daily for 20 30 days. documented as of this encounter (statuses as of 09/30/2019) Active Problems Problem Noted Date Acute hypokalemia [...] Added automatically from request for lillian renny [id number] Syncope 04/01/2017 Chest pain, rule out acute [...] Chest pain 06/12/2016 Coronary artery disease involving [place] coronary briseyda ry of [place] heart 06/12/2016 with angina pectoris [place] (myocardial infarction) 06/12/2016 Type 2 diabetes mellitus without complication 06/12/20 16 Essential hypertension 06/12/2016 History of alcohol abuse Overview: Sober for 16 years documented as of this encounter (statuses as of 09/30/2019) Resolved Problems Problem Noted Date Resolved Date Chest pain radiating to arm 08/08/2016 08/19/2016 Abdominal pain 07/19/2016 08/19/2016 History of epidural anesthesia 07/04/2016 7 Morbid obesity with body mass index of 50 or higher 06/26/19 17 08/19/2016 Obesity (BMI 30-39.9) 06/12/2016 08/19/2016 documented as of this encounter (statuses as of 09/30/2019) Immunizations Name Administration Dates Next Due Td [...] Telemedicine Visit Internal Medicine Lilibeth Andrade MD [address] [place] [address] 10/19/2019 Telemedicine Visit Endocrinology Diabetes & JonesZhen MD [address] [address] [phone] 10/27/2019 Office Visit Pulmonary Disease Max Aguiar MD [address] [place] [address] 11/02/2019 Telemedicine Visit Internal Medicine Lilibeth Andrade MD [address] [place] [address] 11/30/2019 Office Visit Cardiology Practitioner, Heart Failure Nurse 12/02/2019 Appointment Cardiac Electrophysiology Outpt-Simi, Pacemaker/Icd 12/02/2019 Office Visit Oncology Lincoln Griffiths MD 15[address] [place], [place] [address] [phone] 12/08/2019 Office Visit Ophthalmology Yariel Tineo MD [address] [place] [address] [phone] 02/08/2020 Office Visit Cardiology Robert Adkins MD [address] [id number] [place] [address] [phone] Health Maintenance Due Date Last Done Comments [...] of this encounter Implants Implanted Type Area Side Splitter Device Shelf Model / Identifier Expiration Serial / Date Lot Prolene Mesh MESH Right: Ethicon 12/20/2020 PMSK / Implanted: Qty: 1 on 07/04/2016 by Alfonso Martinez MD at [facility] [employer] PMSK / [id number] Pacemaker PACEMAKER Stent-06/24/2016 Implanted: 06/24/2016 (Quantity not on file) documented as of this encounter Procedures Procedure Name Priority Date/Time Associated Diagnosis Comme nts COMP. METABOLIC Routine 09/11/2019 9:00 Hyperkalemia Results for this PANEL (76756) AM CDT procedure are in the results section. documented in this encounter Results COMP. METABOLIC PANEL (25640) (09/11/2019 9:00 AM CDT) [facility] NA 135 135 - 145 [facility] mmol/L [facility] K 3.2 (L) 3.5 - 5.0 [facility] mmol/L [facility] CL 89 (L) 98 - 108 mmol/L [facility] LABOR[facility]ORY CO2 TOTAL 37 (H) 23 - 31 mmol/L [facility] AGAP 9 2 - 16 [facility] BUN 21 7 - 23 mg/dL [facility] GLUCOSE 227 (H) 70 - 110 mg/dL [facility] CREATININE 1.12 0.60 - 1.25 [facility] mg/dL [facility] TOTAL BILI 0.4 0.1 - 1.1 mg/dL [facility] CALCIUM 9.8 8.6 - 10.6 [facility] mg/dL [facility] T PROTEIN 7.4 6.3 - 8.2 g/dL [facility] ALBUMIN 4.1 3.5 - 5.0 g/dL [facility] ALK PHOS 128 (H) 34 - 122 U/L [facility] ALTv 22 5 - 50 U/L [facility] AST(SGOT) 23 13 - 40 U/L [facility] eGFR Calculation 69.4 mL/min/1.73m2 [facility] [place]) eGFR Calculation 84.1 mL/min/1.73m2 [facility] () [facility] LABOR[facility]ORY Specimen Blood Narrative Performed At [...] Phone Number [facility] CLIA: [id number], [address] [place], [place] [address] documented in this encounter Visit Diagnoses Diagnosis Hyperkalemia Hyperpotassemia documented in this encounter Insurance Payer Benefit Plan / Subscriber ID Effective Phone Address T [employer] Dates [facility] [id number] 2017-Lux [phone] [employer] HEALTH JiaThis nt [phone] [place] [address] (Home) [place] [address] documented as of this encounter Advance Directives Name Relationship Healthcare Agent Communication Relationship Keaton Leslie Spouse Primary healthcare agent Elisabeth Soliz Sibling [facility] healthcare [phone] agent (Mobile)
--- OUTSIDE RECORDS SUMMARY | 2019-11-07 22:46 | XMS REPORT | Summary of Care ---
:1970 Author Organization [facility] - [facility] Address [address] [place] [address] Care Team Providers Name Role Phone Elmer Andrade MD Primary Care Provider NAVJOT Espinoza Unavailable Unavailable MD Rocco Unavailable Mary Quezada MD Unavailable Genna AnandP Unavailable Unavailable MD Casimiro Unavailable Ricardo Rodriguez DO Sales Agent Food Vending Service Reason for Visit Reason Comments Refill Request Encounter Details Date Type Department Care Team Description 10/07/2019 Refill [facility] Cardiology- Janett Valiente MD Refill Request [address] [facility], [address] [place] [address] [place] [address] [phone] Allergies Active Allergy Reactions Severity Noted Date [...] as of this encounter (statuses as of 10/08/2019) Medications Medication Sig Dispensed Refills Start Date [...] hours as needed for Pain (scale 7-10). furosemide (LASIX) 80 Take 80 mg by [...] 2 diabetes breakfast. mellitus with cardiac complication ZINC ORAL Take by mouth 0 Activ [...] for Nausea Hyperglycemia and Vomiting (N/V). Insulin [place], Use as directed, 100 Each 1 06/25/2019 [...] tabletIndications: mouth 3 (three) Hypokalemia times daily. atorvastatin (LIPITOR) Take 1 tablet by 90 tablet 3 10/08/2019 Active 40 mg tablet mouth at bedtime. Ranolazine 1,000 mg Take 1 tablet by 60 tablet 4 10/08/2019 Active tablet mouth 2 (two) times daily. atorvastatin (LIPITOR) Take 1 tablet by 90 tablet 3 10/13/201809/21 Discontinued 40 mg tablet mouth at bedtime. / (Reorder) 20 Ranolazine 1,000 mg Take 1 tablet by 60 tablet 4 05/07/2019 Discontinued tablet mouth 2 (two) 12/10 (Reord er) times daily. 20 documented as of this encounter (statuses as of 10/08/2019) Active Problems Problem Noted Date Acute hypokalemia [...] Added automatically from request for lillian lawson [id number] Syncope 04/01/2017 Chest pain, rule out acute myocardial infarction 02/13 Hypokalemia 10/21/2016 (HFpEF) heart failure with preserved ejection fraction 09/29/2016 Anxiety 09/18/2016 Acute on chronic diastolic congestive heart failure SCHILLING (dyspnea on exertion) 09/16/2016 Precordial pain 09/16/2016 GREGROIO (obstructive sleep apnea) 09/16/2016 Dyspnea 09/16/2016 Fatigue 08/24/2016 Atypical chest pain 08/23/2016 Nephrolithiasis 07/20/2016 Morbid obesity with body mass index of 40.0-49.9 06/26 Dizziness 06/26/2016 Chest pain 06/12/2016 Coronary artery disease involving [place] coronary briseyda ry of [place] heart 06/12/2016 with angina pectoris [place] (myocardial infarction) 06/12/2016 Type 2 diabetes mellitus without complication 06/12/20 16 Essential hypertension 06/12/2016 History of alcohol abuse Overview: Sober for 16 years documented as of this encounter (statuses as of 10/08/2019) Resolved Problems Problem Noted Date Resolved Date Chest pain radiating to arm 08/08/2016 08/19/2016 Abdominal pain 07/19/2016 08/19/2016 History of epidural anesthesia 07/04/2016 7 Morbid obesity with body mass index of 50 or higher 06/26/19 17 08/19/2016 Obesity (BMI 30-39.9) 06/12/2016 08/19/2016 documented as of this encounter (statuses as of 10/08/2019) Immunizations Name Administration Dates Next Due Td [...] Andrade MD 146 [facility] 103 [place], [place] [address] [phone] 10/19/2019 Telemedicine Visit Endocrinology Diabetes & JonesZhen MD [facility] 2660 [place] [address] [phone] 10/27/2019 Office Visit Pulmonary Disease Max Aguiar MD [address] [facility] 106 [place], [place] [address] [phone] 11/02/2019 Telemedicine Visit Internal Medicine Lilibeth Andrade MD [address] [facility] 103 [place], [place] [address] [phone] 11/30/2019 Office Visit Cardiology Practitioner, Heart Failure Nurse 12/02/2019 Appointment Cardiac Electrophysiology Outpt-Simi, Pacemaker/Icd 12/02/2019 Office Visit Oncology Lincoln Griffiths MD [address] [place], [place] [address] [phone] 12/08/2019 Office Visit Ophthalmology Yariel Tineo MD [address] [place] [address]. [place] [address] 02/08/2020 Office Visit Cardiology Robert Adkins MD [address] [facility] [id number] [place] [address] Health Maintenance Due Date Last [...] of this encounter Implants Implanted Type Area Grade Tamper Device Shelf Model / Identifier Expiration Serial / Date Lot Prolene Mesh MESH Right: Ethicon 12/20/2020 PMSK / Implanted: Qty: 1 on 07/04/2016 by Alfonso Martinez MD at [facility] [employer] PMSK / [id number] Pacemaker PACEMAKER Stent-06/24/2016 Implanted: 06/24/2016 (Quantity not on file) documented as of this encounter Results Not on filedocumented in this encounter Insurance Payer Benefit Plan / Subscriber ID Effective Phone Address T ype Group Dates [facility] [id number] 2017-Prese [phone] HMO HEALTH [employer] HEALTH CHOICE [phone] [place] [address] documented as of this encounter Advance Directives Name Relationship Healthcare Agent Communication Relationship Keaton Nelson Spouse Primary healthcare agent Elisabeth Soliz Sibling First [facility] healthcare [phone] agent (Mobile)
--- OUTSIDE RECORDS SUMMARY | 2019-11-07 22:47 | XMS REPORT | Summary of Care ---
:1970 Author Organization [facility] - [facility] Address [address] [place] [address] Care Team Providers Name Role Phone Elmer Andrade MD Primary Care Provider NAVJOT Espinoza Unavailable Unavailable MD Rocco Unavailable Mary Quzeada MD Unavailable Genna Anand LICENSED [employer]OKER Unavailable Unavailable MD Casimiro Unavailable Ricardo Rodriguez DO Manager Transmission Reason for Visit Reason Comments Follow-up Encounter Details Date Type Department Care Team Description 09/09/2019 Telemedicine Visit [facility] Deandre Andrade (Primary Dx); Pediatric and Lilibeth Payne MD Nail problem; Adult Primary [address] Dry skin; [facility] Joshua [address] Memory problem; [address] [place], [place] [address], [id number] [place] [address] [phone] [address] Allergies Active Allergy Reactions Severity Noted [...] as of this encounter (statuses as of 10/10/2019) Medications Medication Sig Dispensed Refills Start Date [...] 2 (two) Folliculitis times daily. ondansetron (ZOFRAN Take 1 tablet by 14 tablet 0 06/23/2019 Active ODT) 4 mg mouth every 8 disintegrating (eight) hours as tabletIndications: needed for Nausea Hyperglycemia and Vomiting (N/V). Insulin [place], Use as directed, 100 Each 1 06/25/2019 Active Disposable, (RELION PEN 1x daily, DX:E11.9 NEEDLES) 32 gauge x 5/32" Ndle Insulin Glargine inject 12-14 Units 3 mL 0 07/07/2019 Active (LANTUS SOLOSTAR U-100 under the skin INSULIN) 100 unit/mL (3 daily. mL) injection desvenlafaxine Take 2 tablets [...] additional 1 pill as needed acute anxiety. atorvastatin (LIPITOR) Take 1 tablet by 90 tablet 3 10/13/201809/21 Discontinued 40 mg tablet mouth at bedtime. 6/20 (Reorder) 20 Ranolazine 1,000 mg Take 1 tablet by 60 tablet 4 05/07/2019 Discontinued tablet mouth 2 (two) 6/20 (Reord er) times daily. 20 eplerenone 50 mg Take 1 tablet by 60 tablet 0 08/19/2019 032 tabletIndications: mouth 2 (two) 8/20 Hypokalemia times daily for 30 20 days. KCL 20 mEq Take 2 tablets by 180 tablet 0 08/19/2019 032 Discontinued tabletIndications: mouth 3 (three) 3/20 (Reorder) Hypokalemia times daily for 30 20 days. aMILoride 5 mg Take 2 tablets by 120 tablet 0 08/25/2019 04/0 tabletIndications: mouth 2 (two) 3/20 Hypokalemia times daily for 30 20 days. documented as of this encounter (statuses as of 10/10/2019) Active Problems Problem Noted Date Acute hypokalemia [...] Added automatically from request for lillian lawson [id number] Syncope 04/01/2017 Chest pain, rule out acute [...] Chest pain 06/12/2016 Coronary artery disease involving [place] coronary briseyda ry of campo heart 06/12/2016 with angina pectoris [place] (myocardial infarction) 06/12/2016 Type 2 diabetes mellitus without complication 06/12/20 16 Essential hypertension 06/12/2016 History of alcohol abuse Overview: Sober for 16 years documented as of this encounter (statuses as of 10/10/2019) Resolved Problems Problem Noted Date Resolved Date Chest pain radiating to arm 08/08/2016 08/19/2016 Abdominal pain 07/19/2016 08/19/2016 History of epidural anesthesia 07/04/2016 7 Morbid obesity with body mass index of 50 or higher 06/26/19 17 08/19/2016 Obesity (BMI 30-39.9) 06/12/2016 08/19/2016 documented as of this encounter (statuses as of 10/10/2019) Immunizations Name Administration Dates Next Due Td [...] Signs Not on filedocumented in this encounter Progress Notes Lilibeth Andrade MD - 09/09/2019 2:40 PM CDT DOS: 09/09/2019 CC: Follow up of chronic conditions HPI: John Paul Nelson is a 49 year old male with history including has a past medical history of AAA (abdominal aortic aneurysm), Anxiety, CHF (congestive heart failure), Degenerative disc disease, lumbar, Depression, Diabetes, Hernia, History of alcohol abuse, History of pernicious anemia, HLD (hyperlipidemia), Hypertension, Kidney stones, Lung nodule, [place] (myocardial infarction), Microcytic anemia, Right bundle branch block, and Uveitis. who is being seen today for follow up of chronic conditions. Verbal consent obtained from Patient: John Paul Nelson due to the COVID-19 pandemic for telehealthservices provided below. Communication with patient was conducted via Telephone due to patient unable to obtain video call option. Location of Patient: in his car Location of Provider: Clinic Date of Service: 10/10/2019 Patient states he's been trying to stay away from everyone due to the coronavirus. He states he's been hanging around the house and he rarely goes out, If he goes out he stays in the car and wears a mask. Patient has issues with low potassium . He states he started having symptoms yesterday. He followed with psych this morning. Patient states he's doing better but still having anxiety due to everything that's been going on. Patient states suboxone helps with pain. Patient states fingernails improved, he reports he no longer has spooning and the dark area on his thumb is fading. he states he's not following with dermatology. He states he's been using a mixture ofcoconut oil and gimenez butter which seems to be helping his fingernails and issues with dry skin. Patient states he's still having issues with memory. He states memory issues run in the family. Medications reviewed in EPIC, past medical history and social history and allergies reviewed. Review of Systems Skin: + dry skin Neurological: + memory issues Psychiatric/Behavioral: The patient is nervous/anxious. PE: Physical Exam Constitutional: Alert and oriented Pulmonary/Chest: Breath sounds normal. No respiratory distress. He has no wheezes. Breathing comfortably Neurological: Answers questions appropriately Psychiatric: He has a normal mood and affect. Thought content normal. This is a televisit, unable to get vitals A total of 30 minutes was spent on the Telephone due to patient unable to obtain video call option with the patient. A/P: John Paul Nelson is a 49 year old male with history including has a past medical history of AAA (abdominal aortic aneurysm), Anxiety, CHF (congestive heart failure), Degenerative disc disease, lumbar, Depression, Diabetes, Hernia, History of alcohol abuse, History of pernicious anemia, HLD (hyperlipidemia), Hypertension, Kidney stones, Lung nodule, DE (myocardial infarction), Microcytic anemia, Right bundle branch block, and Uveitis. who is being seen today for chronic medical conditions. Hyperkalemia (primary encounter diagnosis) Comment: started having symptoms yesterday. Will check labs. Plan: COMP. METABOLIC PANEL (91854) Nail problem, Dry skin Comment: improved. Plan: monitor. Continue current regimen. Memory problem Comment: still having issues. Plan: discussed starting the RECODE multivitamin supplement. Anxiety Comment: improved, still having issues due to everything that's going on. Plan: continue following with psych. Continue clonazepam 1mg up to 4 daily, abilify 15mg daily, pristiq 200mg daily. Return in about 1 month (around 10/10/2019) for follow-up chronic conditions . Plan of care, desired health behaviors, goals,& medication discussed with patient and educational resources and self management tools provided as appropriate. Patient/family/guardian voices understanding. Patient verbalized understanding & agrees to plan of care. Barriers to care: none Ability to manage care: good Scribe's Attestation ILinnea , am scribing for, and in the presence of, Lilibeth Andrade MD who performed the services described here-in. Linnea Canada, September 09, 2019, 4:09 PM Physician's Attestation ILilibeth MD, personally performed the services described in this documentation , asscribed by, Linnea Canada in my presence and it is both accurate and complete. Lilibeth Andrade MD October 10, 2019, 5:20 PM documented in this encounter Plan of Treatment Date Type Specialty Care Team Description 10/11/2019 Nurse Visit Anti-coagulation Clinic Nurse, Vtc Anticoag 10/12/2019 Telemedicine Visit Internal Medicine Lilibeth Andrade MD [address] [place] [address] [address] [place] [address] 10/14/2019 Telemedicine Visit Psychiatry Yogi Meza MD [address] [place] [address] Mendez Martinez MD [address] [place] [address] 10/19/2019 Telemedicine Visit Endocrinology Diabetes & JonesZhen MD [place] [address] [place] [address] [phone] 10/27/2019 Office Visit Pulmonary Disease Max Aguiar MD [address] [place] [address] [address] [place], [place] [address] 11/02/2019 Telemedicine Visit Internal Medicine Lilibeth Andrade MD [address] [place] [address] [address] [place], [place] [address] [phone] 11/30/2019 Office Visit Cardiology Practitioner, Heart Failure Nurse 12/02/2019 Appointment Cardiac Electrophysiology Outpt-Simi, Pacemaker/Icd 12/02/2019 Office Visit Oncology Lincoln Griffiths MD [address] [place], [place] [address] [phone] 12/08/2019 Office Visit Ophthalmology Yariel Tineo MD [address] [place] [address] 02/08/2020 Office Visit Cardiology Robert Adkins MD [address] [place] [address] [phone] Name Type Priority Associated Diagnoses Order S chedule COMP. METABOLIC PANEL LAB Routine Hyperkalemia 12 Occ urrences starting (43458) 09/09/2019 unti l 09/08/2020, 1 c ompleted Health Maintenance Due Date Last Done Comments [...] of this encounter Implants Implanted Type Area Truck Greaser Device Shelf Model / Identifier Expiration Serial / Date Lot Prolene Mesh MESH Right: Ethicon 12/20/2020 PMSK / Implanted: Qty: 1 on 07/04/2016 by Alfonso Martinez MD at [facility] [employer] PMSK / [id number] Pacemaker PACEMAKER Stent-06/24/2016 Implanted: 06/24/2016 (Quantity not on file) documented as of this encounter Results COMP. METABOLIC PANEL (80560) (09/11/2019 9:00 AM CDT) Pathologist Sig nature NA 135 135 - [address] [facility] mmol/L [facility] K 3.2 (L) 3.5 - 5.[address] [facility] mmol/L [facility] CL 89 (L) 98 - 108 mmol/L [facility] CO2 TOTAL 37 (H) 23 - 31 mmol/L [facility] AGAP 9 2 - 16 [facility] BUN 21 7 - 23 mg/dL [facility] GLUCOSE 227 (H) 70 - 110 mg/dL [facility] CREATININE 1.12 0.60 - 1.[address] [facility] mg/dL [facility] TOTAL BILI 0.4 0.1 - 1.1 mg/dL [facility] CALCIUM 9.8 8.6 - 10.[address] [facility] mg/dL [facility] T PROTEIN 7.4 6.3 - 8.2 g/dL [facility] ALBUMIN 4.1 3.5 - 5.0 g/dL [facility] ALK PHOS 128 (H) 34 - 122 U/L [facility] ALTv 22 5 - 50 U/L [facility] AST(SGOT) 23 13 - 40 U/L [facility] eGFR Calculation 69.4 mL/min/1.73m2 [facility] ([facility] [place]) eGFR Calculation 84.1 mL/min/1.73m2 [facility] () [facility] Specimen [...] Performing Organization Address City/State/Zipcode Phone Number [facility] CLIA: [id number], [address] [place], [place] [address] documented in this encounter Visit Diagnoses Diagnosis Hyperkalemia - Primary Hyperpotassemia Nail problem Unspecified disease of nail Dry skin Other symptoms involving skin and integu mentary tissues Memory problem Memory loss Anxiety Anxiety state, unspecified documented in this encounter Insurance Payer Benefit Plan / Subscriber ID Effective Phone Address T e Group Dates [facility] [id number] 2017-Lux [phone] [address] P[address] HEALTH [employer] [phone] [place] [address] documented as of this encounter Advance Directives Name Relationship Healthcare Agent Communication Relationship Keaton Nelson Spouse Primary healthcare agent Elisabeth Soliz Sibling First [facility] healthcare [phone] agent (Mobile)
--- OUTSIDE RECORDS SUMMARY | 2019-11-07 22:47 | XMS REPORT | Summary of Care ---
:1970 Author Organization [facility] [[email or web address]] - Health Address [address] [place] [address] Care Team Providers Name Role Phone Elmer Andrade MD Primary Care Provider NAVJOT Espinoza Unavailable Unavailable MD Rocco Unavailable Mary Quezada MD Unavailable Enrike Anand Unavailable Unavailable MD Casimiro Unavailable Ricardo Rodriguez DO Gang Pusher Encounter Details Date Type Department Care Team Description 10/11/2019 Orders Only [facility] [[email or web address]] Doctor Unassigned, No [address] [facility] [place] [address] [address] [place] [address] Allergies Active Allergy Reactions Severity Noted Date [...] as of this encounter (statuses as of 10/11/2019) Medications Medication Sig Dispensed Refills Start Date [...] for Pain (scale 7-10). furosemide (LASIX) 80 mg Take 80 mg [...] with breakfast. diabetes mellitus with cardiac complication ZINC ORAL Take by mouth every 0 [...] for Nausea Hyperglycemia and Vomiting (N/V). Insulin [place], Disposable, Use as directed, 1x 100 Each [...] 15 tablet 2 0 Active tabletIndications: Vitamin 2 (two) times weekly on B12 deficiency Friday and Friday. pantoprazole 40 mg EC Take 1 tablet by mouth 180 tablet 3 11/2019 Active tabletIndications: Hiatal 2 (two) times daily. hernia clopidogreL (PLAVIX) 75 mg Take 1 tablet by mouth 90 tablet 3 08/30/2019 Active tablet daily. ARIPiprazole 15 mg Take 1 tablet by mouth 30 tablet 1 09/08/19 20 Active tabletIndications: daily. Generalized anxiety disorder, Panic disorder without agoraphobia, Severe episode of recurrent major depressive disorder, without psychotic features clonazePAM 1 mg Take 1 pill PO in the 120 tablet 1 09/09/2019 Active tabletIndications: AM, 1 PO in the Generalized anxiety afternoon, 1 pill PO in disorder, Panic disorder the evening. May take without agoraphobia additional 1 pill as needed acute anxiety. dulaglutide (TRULICITY) 0.75 inject 0.75 mg under 4 Syringe 4 09/10/2019 Active mg/0.5 mL PnIjIndications: the skin weekly. Type 2 diabetes mellitus with cardiac complication KCL 20 mEq Take 3 tablets by mouth 270 tablet 2 09/13/2019 Active tabletIndications: 3 (three) times daily. Hypokalemia atorvastatin (LIPITOR) 40 mg Take 1 tablet by mouth 90 tablet 3 10/08/2019 Active tablet at bedtime. Ranolazine 1,000 mg tablet Take 1 tablet by mouth 60 tablet 4 10/08/2019 Active 2 (two) times daily. documented as of this encounter (statuses as of 10/11/2019) Active Problems Problem Noted Date Acute hypokalemia [...] Added automatically from request for lillian lawson [id number] Syncope 04/01/2017 Chest pain, rule out acute [...] Chest pain 06/12/2016 Coronary artery disease involving [place] coronary briseyda ry of [place] heart 06/12/2016 with angina pectoris [place] (myocardial infarction) 06/12/2016 Type 2 diabetes mellitus without complication 06/12/20 16 Essential hypertension 06/12/2016 History of alcohol abuse Overview: Sober for 16 years documented as of this encounter (statuses as of 10/11/2019) Resolved Problems Problem Noted Date Resolved Date Chest pain radiating to arm 08/08/2016 08/19/2016 Abdominal pain 07/19/2016 08/19/2016 History of epidural anesthesia 07/04/2016 7 Morbid obesity with body mass index of 50 or higher 06/26/19 17 08/19/2016 Obesity (BMI 30-39.9) 06/12/2016 08/19/2016 documented as of this encounter (statuses as of 10/11/2019) Immunizations Name Administration Dates Next Due Td [...] Team Description 10/11/2019 Nurse Visit Anti-coagulation Clinic Harley Johns MD [address] [place] [address] Nurse, Vtenrike Anticoag 10/12/2019 Telemedicine Visit Internal Medicine Lilibeth Andrade MD [address] [place] [address] [phone] 10/14/2019 Telemedicine Visit Psychiatry Yogi Meza MD [address] [place], [place] 7047[address] Mendez Martinez MD [address] [place] [address]. [place] [phone] 10/19/2019 Telemedicine Visit Endocrinology Diabetes & JonesZhen MD Metabolism [address] [place] [address] [phone] 10/27/2019 Office Visit Pulmonary Disease Max Aguiar MD 146 [facility] [address] [place], [place] [address] [phone] 11/02/2019 Telemedicine Visit Internal Medicine Lilibeth Andrade MD [address] [place] [address] [address] [place], [place] [address] [phone] 11/30/2019 Office Visit Cardiology Practitioner, Heart Failure Nurse 12/02/2019 Appointment Cardiac Electrophysiology Outpt-Simi, Pacemaker/Icd 12/02/2019 Office Visit Oncology Lincoln Griffiths MD [address] [place], [place] [address] [phone] 12/08/2019 Office Visit Ophthalmology Yariel Tineo MD [address] [facility]. [place], [place] [address] 02/08/2020 Office Visit Cardiology Robert Adkins MD 301 [facility] [id number] [place], [place] [address] Health Maintenance Due Date Last Done Comments [...] of this encounter Implants Implanted Type Area Baseball Hand Sewer Device Shelf Model / Identifier Expiration Serial / Date Lot Prolene Mesh MESH Right: Ethicon 12/20/2020 PMSK / Implanted: Qty: 1 on 07/04/2016 by Alfonso Martinez MD at [facility] [employer]dom[employer] PMSK / [id number] Pacemaker PACEMAKER Stent-06/24/2016 Implanted: 06/24/2016 (Quantity not on file) documented as of this encounter Procedures Procedure Name Priority Date/Time Associated Diagnosis Comme nts CONSENT/REFUSAL FOR Routine 10/11/2019 3:09 PM CDT DIAGNOSIS AND TREATMENT documented in this encounter Results Not on filedocumented in this encounter Insurance Payer Benefit Plan / Subscriber ID Effective Phone Address T ype Group Dates [facility] [id number] 2017-Lux [phone] HMO HEALTH [employer] HEALTH CHOICE nt [id number] [place] [address] documented as of this encounter Advance Directives Name Relationship Healthcare Agent Communication Relationship Keaton Nelson Spouse Primary healthcare agent Elisabeth Soliz Sibling First [facility] [phone] agent (Mobile)
--- OUTSIDE RECORDS SUMMARY | 2019-11-07 22:48 | XMS REPORT | Summary of Care ---
:1970 Author Organization [facility] Address [address] [place] [address] Care Team Providers Name Role Phone Elmer Andrade MD Primary Care Provider NAVJOT Espinoza Unavailable Unavailable MD Rocco Unavailable Mary Quezada MD Unavailable Genna Anand Unavailable Unavailable MD Casimiro Unavailable Ricardo Rodriguez DO Coffee Maker Reason for Visit Reason Comments Assessment Encounter Details Date Type Department Care Team Description 10/11/2019 Telephone [facility] Robert Adkins Ass essment Cardiology-Galdino PHILLIP [address] [id number] 1005 [facility], [address] [place] [address] Floor [phone] [place] [id number] [phone] Allergies Active Allergy Reactions Severity Noted Date [...] for Nausea Hyperglycemia and Vomiting (N/V). Insulin [place], Disposable, Use as directed, 1x 100 Each [...] tablet by mouth 30 tablet 1 09/08/19 Active tabletIndications: daily. Generalized anxiety disorder, Panic [...] Added automatically from request for lillian lawson [id number] Syncope 04/01/2017 Chest pain, rule out acute [...] Chest pain 06/12/2016 Coronary artery disease involving [place] coronary briseyda ry of [place] heart 06/12/2016 with angina pectoris [place] (myocardial [...] Treatment Date Type Specialty Care Team Description 10/12/2019 Telemedicine Visit Internal Medicine Lilibeth Andrade MD [address] [place] [address] [phone] 10/14/2019 Telemedicine Visit Psychiatry Yoig Meza MD [address] [place], [place] 489[address] Mendez Martinez MD [address] [place] [address]. [place] [phone] 10/19/2019 Telemedicine Visit Endocrinology Diabetes & JonesZhen MD Metabolism [address] [place] [address] [phone] 10/27/2019 Office Visit Pulmonary Disease Max Aguiar MD 146 [facility] 106 [place], [place] [address] [phone] 11/02/2019 Telemedicine Visit Internal Medicine Lilibeth Andrade MD [address] [place] [address] [address] [place], [place] [address] [phone] 11/30/2019 Office Visit Cardiology Practitioner, Heart Failure Nurse 12/02/2019 Appointment Cardiac Electrophysiology Outpt-Simi, Pacemaker/Icd 12/02/2019 Office Visit Oncology Lincoln Griffiths MD [address] [place], [place] [address] [phone] 12/08/2019 Office Visit Ophthalmology Yariel Tineo MD 700 [facility]. [place], [place] [address] 02/08/2020 Office Visit Cardiology Robert Adkins MD 301 [facility] [id number] [place], [place] [address] Health Maintenance Due Date Last Done Comments [...] this encounter Implants Implanted Type Area Medical Claims Assistant Device Shelf Model / Identifier Expiration Serial / Date Lot Prolene Mesh MESH Right: Ethicon 12/20/2020 PMSK / Implanted: Qty: 1 on 07/04/2016 by Alfonso Martinez MD at [facility] Abdom[employer] PMSK / [id number] Pacemaker PACEMAKER Stent-06/24/2016 Implanted: 06/24/2016 (Quantity not on file) documented as of this encounter Results Not on filedocumented in this encounter Insurance Payer Benefit Plan / Subscriber ID Effective Phone Address T ype Group Dates [facility] [id number] 2017-Lux [phone] HMO HEALTH MZL [employer] HEALTH CHOICE [phone] [place] [address] documented as of this encounter Advance Directives Name Relationship Healthcare Agent Communication Relationship Keaton Nelson Spouse Primary healthcare agent Elisabeth Soliz Sibling First alternate healthcare [phone] agent (Mobile)
--- OUTSIDE RECORDS SUMMARY | 2019-11-07 22:49 | XMS REPORT | Summary of Care ---
:1970 Author Organization [facility] - [facility] Address [address] [place] [address] Care Team Providers Name Role Phone Elmer Andrade MD Primary Care Provider NAVJOT Espinoza Unavailable Unavailable MD Rocco Unavailable Mary Quezada MD Unavailable Genna AnandP Unavailable Unavailable MD Casimiro Unavailable Ricardo Rodriguez DO Weapons Engineer Reason for Referral Radiology Services (STAT) Status Reason Specialty Diagnoses / Referred By Referred To Procedures Contact Contact New Request Diagnostic Diagnoses Chest pain in adult Ibikunle, Radiology Procedures XR CHEST 1 VW COVID Chest 1 View Brady Justyna, WOOD HEEL CEMENTER [address] [place] [address] Reason for Visit Reason Comments Chest Pain Auth/Cert Status Reason Specialty Diagnoses / Referred By Referred To Procedures Contact Contact Emergency Medicine [facility] [address] [place] [address] Fax: Encounter Details Date Type Department Care Team Description 10/11/2019 - Emergency ADC Medicine Surgery Ibikunerrol F olusho F, WOOD HEEL CEMENTER [address] [place] [address] Chest pain 10/12/2019 Unit Thaddeus Interiano MD [address] [place] [address] [place] [address] [place] [address] Allergies Active Allergy Reactions Severity Noted [...] as of this encounter (statuses as of 10/12/2019) Medications Medication Sig Dispensed Refills Start Date [...] every 2 Vitamin B12 deficiency (two) weeks. ondansetron (ZOFRAN Take 1 tablet by 14 tablet 0 06/23/2019 Active ODT) 4 mg mouth every 8 disintegrating (eight) hours as tabletIndications: needed for Nausea Hyperglycemia and Vomiting (N/V). Insulin Duke, Use as directed, 100 Each 1 06/25/2019 [...] Active tablet mouth 2 (two) times daily. clindamycin 1 % Apply to 60 mL 6 06/11/2019 04/2 Dis continued solutionIndications: affected area(s) 0/ 20 (Discontinued by Folliculitis 2 (two) times 20 ano ther daily. 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 angina pectoris AR (myocardial infarction) 06/12/2016 Type 2 diabetes mellitus without complication 06/12/20 16 Essential hypertension 06/12/2016 History of alcohol abuse Overview: Sober for 16 years documented as of this encounter (statuses as of 10/12/2019) Resolved Problems Problem Noted Date Resolved Date Chest pain radiating to arm 08/08/2016 08/19/2016 Abdominal pain 07/19/2016 08/19/2016 History of epidural anesthesia 07/04/2016 7 Morbid obesity with body mass index of 50 or higher 06/26/19 17 08/19/2016 Obesity (BMI 30-39.9) 06/12/2016 08/19/2016 documented as of this encounter (statuses as of 10/12/2019) Immunizations Name Administration Dates Next Due Td [...] Sign Reading Time Taken Comments Blood Pressure 96/52 10/12/2019 10:59 AM CDT Pulse 73 10/12/2019 10:59 AM CDT Temperature 36.6 C (97.9 F) 10/12/2019 10:59 AM CDT Respiratory Rate 18 10/12/2019 10:59 AM CDT Oxygen Saturation 97% 10/12/2019 10:59 AM CDT Inhaled Oxygen Concentration - - Weight 127 kg (280 lb) 10/11/2019 8:04 PM CDT Height 177.8 cm (5' 10") 10/11/2019 8:04 PM CDT Body Mass Index 40.18 10/11/2019 8:04 PM CDT documented in this encounter Discharge Instructions Pura Cochran RN - 10/12/2019 Patient Discharge Instructions Discharge date: 10/12/2019 Procedure(s): Discharge Orders Regular Diet; Texture: Regular. Texture Regular. Diabetic: IDDM Discharge Condition - Discharge Condition: GOOD Discharge Activity Discharge Activity: As Tolerated VTE Propylaxis- Was ordered during hospitalization Take Home Medications These are medications ordered for you by your healthcare provider. Do not take any other medications or supplements unless advised by your healthcare provider. Current Discharge Medication List CONTINUE these medications which have NOT CHANGED Details atorvastatin (LIPITOR) 40 mg tablet Take 1 tablet by mouth at bedtime. Qty: 90 tablet, Refills: 3 Ranolazine 1,000 mg tablet Take 1 tablet by mouth 2 (two) times daily. Qty: 60 tablet, Refills: 4 KCL 20 mEq tablet Take 3 tablets by mouth 3 (three) times daily. Qty: 270 tablet, Refills: 2 Associated Diagnoses: Hypokalemia dulaglutide (TRULICITY) 0.75 mg/0.5 mL PnIj inject 0.75 mg under the skin weekly. Qty: 4 Syringe, Refills: 4 Associated Diagnoses: Type 2 diabetes mellitus with cardiac complication clonazePAM 1 mg tablet Take 1 pill PO in the AM, 1 PO in the afternoon, 1 pill PO in the evening. May take additional 1 pill as needed acute anxiety. Qty: 120 tablet, Refills: 1 Associated Diagnoses: Generalized anxiety disorder; Panic disorder without agoraphobia ARIPiprazole 15 mg tablet Take 1 tablet by mouth daily. Qty: 30 tablet, Refills: 1 Associated Diagnoses: Generalized anxiety disorder; Panic disorder without agoraphobia; Severe episode of recurrent major depressive disorder, without psychotic features clopidogreL (PLAVIX) 75 mg tablet Take 1 tablet by mouth daily. Qty: 90 tablet, Refills: 3 metOLazone 2.5 mg tablet Take 1 tablet by mouth 2 (two) times weekly on Friday and Friday. Qty: 15 tablet, Refills: 2 Comments: Please do NOT fill at this time - patient has enough supply and will call for refill Associated Diagnoses: Vitamin B12 deficiency pantoprazole 40 mg EC tablet Take 1 tablet by mouth 2 (two) times daily. Qty: 180 tablet, Refills: 3 Associated Diagnoses: Hiatal hernia desvenlafaxine succinate (PRISTIQ) 100 mg 24 hr tablet Take 2 tablets by mouth daily. Qty: 60 tablet, Refills: 1 Associated Diagnoses: Severe episode of recurrent major depressive disorder, without psychotic features; Generalized anxiety disorder Insulin Glargine (LANTUS SOLOSTAR U-100 INSULIN) 100 unit/mL (3 mL) injection inject 12-14 Units under the skin daily. Qty: 3 mL, Refills: 0 Insulin Duke, Disposable, (RELION PEN NEEDLES) 32 gauge x 5/32" Ndle Use as directed, 1x daily, DX:E11.9 Qty: 100 Each, Refills: 1 ondansetron (ZOFRAN ODT) 4 mg disintegrating tablet Take 1 tablet by mouth every 8 (eight) hours as needed for Nausea and Vomiting (N/V). Qty: 14 tablet, Refills: 0 Associated Diagnoses: Hyperglycemia cyanocobalamin (VITAMIN B-12) 1,000 mcg/mL injection 1 mL by Intramuscular route every 2 (two) weeks. Qty: 12 mL, Refills: 3 Associated Diagnoses: Vitamin B12 deficiency PROMETHAZINE 25 mg tablet TAKE 1 TABLET BY MOUTH EVERY SIX HOURS NEEDED FOR NAUSEA OR VOMITING Qty: 30 tablet, Refills: 11 Associated Diagnoses: Non-intractable vomiting with nausea, unspecified vomiting type testosterone (ANDROGEL) 20.25 mg/1.25 gram (1.62 %) gel pump Apply 2 Pumps to area(s) daily. Qty: 75 g, Refills: 3 Associated Diagnoses: Low testosterone hydrocortisone 2.5 % cream Apply to affected area(s) 2 (two) times daily. If Insurance does not cover the jar then give tubes of cream. Qty: 454 g, Refills: 11 Associated Diagnoses: Seborrheic dermatitis nitroglycerin (NITROSTAT) 0.[address] 1 tablet under the tongue every 5 (five) minutes as needed for Chest pain. Qty: 1 Bottle, Refills: 1 ZINC ORAL Take by mouth every other day. metformin ER 500 mg 24 hr tablet Take 1 tablet by mouth daily with breakfast. Qty: 90 tablet, Refills: 3 Associated Diagnoses: Type 2 diabetes mellitus with cardiac complication allopurinol 300 mg tablet Take 1 tablet by mouth daily. Qty: 90 tablet, Refills: 3 Associated Diagnoses: Uric acid stone in urine Cholecalciferol, Vitamin D3, (VITAMIN D3) 2,000 unit tablet Take by mouth. polyethylene glycol (MIRALAX) 17 gram/dose powder Take 17 g by mouth daily. Qty: 238 g, Refills: 3 Associated Diagnoses: Constipation, unspecified constipation type ferrous sulfate (IRON) 325 mg (65 mg iron) tablet Take 1 tablet by mouth 3 (three) times daily with meals. Qty: 270 tablet, Refills: 3 Associated Diagnoses: Iron deficiency anemia due to chronic blood loss !! warfarin 10 mg tablet Take as directed by [facility] based on INR results. Qty: 60 tablet, Refills: 3 Comments: Qty #60 = 90 day supply. Patient uses both warfarin 10 mg and 7.5 mg tablets. Office [phone] Deepika Bagley RN !! warfarin 7.5 mg tablet Take as directed by [facility] based on INR results. Qty: 90 tablet, Refills: 3 Comments: Qty # 90 = 90 day supply. Patient uses both warfarin 10 mg and 7.5 mg tablets. Office [phone] Deepika Bagley RN furosemide (LASIX) 80 mg tablet Take 80 mg by mouth every morning and evening. buprenorphine-naloxone (SUBOXONE) 8-[address] 8 mg under the tongue every 12 (twelve) hours as needed for Pain (scale 7-10). methocarbamol 750 mg tablet Take 750 mg by mouth 2 (two) times daily. foLIC acid 1 mg tablet Take 1 tablet by mouth daily. Qty: 90 tablet, Refills: 3 Associated Diagnoses: High plasma homocystine magnesium oxide 400 mg magnesium Tab Take 1 tablet by mouth daily. Qty: 90 tablet, Refills: 3 Associated Diagnoses: Low magnesium level pyridoxine HCl, vitamin B6, (VITAMIN B-6 ORAL) Take by mouth. Diclofenac Sodium 1 % gel Take 2-4 grams three times a day as needed for pain Qty: 100 g, Refills: 3 Associated Diagnoses: Chronic back pain greater than 3 months duration docusate 100 mg capsule Take 1 capsule by mouth 2 (two) times daily as needed for Constipation. Qty: 30 capsule, Refills: 0 !! - Potential duplicate medications found. Please discuss with provider. If you receive the patient satisfaction survey by mail please complete and return and let us know how we are doing. TOBACCO AVOIDANCE Exposure to tobacco either from smoking or from second hand (environmental) smoke or smokeless tobacco (snuff) is damaging to your health. This information is to encourage everyone to avoid tobacco exposure. It is recommended that you: ? If you smoke or use smokeless tobacco, we encourage you to quit. ? If you have already quit smoking, continue your good work! ? If you do not smoke or use smokeless tobacco, do not start. ? Avoid secondhand smoke. Additional Resources You may want to contact these organizations for further information on smoking and how to quit. [place] [employer], http://www.lungusa.org/stop-smoking/ [place] [employer], http://www.cancer.org/Healthy/StayAwayfromTobacco/index [place] [employer], http://www.heart.org/HEARTORG/GettingHealthy/QuitSmoking/Quit-Smoking_[facility] _001085_SubHomePage.jsp AttachmentsThe following attachments cannot be sent through Care Everywhere. Chest Pain, Noncardiac (Malawian)documented in this encounter Progress Notes Geovanni Cameron RN - 10/12/2019 12:36 PM CDT Care Management Discharge Disposition Note (DCDN) Interventions: Clear discharge plan Providers: Hosiery Operator/Sports Coordinator 10-22- Patient Capacity Improvements: Discharge Plan for ongoing care and services: Is this a new referral: Patient Choice completed for referred services: DME location: Other DME location: Durable Medical Equipment: Home Health location: Discharge location(s): Patient choice completed for referred services: Discussed with patient/patients family involved in decision making: Patient or family caregiver understands, and agrees with discharge plan. Community resources/referrals made or provided to patient: Resources/Referrals: Transportation: Private Vehicle Mental Status: Alert & Oriented to Person,Place & Time Living Arrangement: Home Other living arrangement: Address of living arrangement: [address] [place] [address] Funding Resources: Commercial Nursing informed of discharge plan: Name of RN informed: Estimated discharge date: 10/12/19 Time: 1236 Additional Information: CM/MARCELO Name & Contact number: Geovanni Cameron RN Ph. Geovanni Cameron RN, BSN [facility] ADC Hosiery Operator O [phone] F [phone] The following information has been provided to the facility noted above: reason for the patient discharge or transfer; patients physical and psychosocial status; summary of care, treatment, servicesprovided to patient; and the patient progress toward goals. Geovanni Forde RN - 10/12/2019 7:58 AM CDTCare Management Social Functional Assessment Patient Name: John Paul Nelson Age: [age] year old Sex: male Patient's Previous Admission Date at [facility]: 10/06/2018 Current diagnosis and co-morbidities: CHEST PAIN Readmission Questions: Was patient discharged from any acute care hospital within the last 30 days: No Social Functional Assessment: Primary language spoken/preferred: Malawian Mental Status: Alert & Oriented to Person,Place & Time Information given by: Self Patient's support system: Spouse Name and number of support system: Keaton [place] [phone] Primary Equipment Specialist: Self MPOA: Same as support system Living Arrangement: Home Address of living arrangement : [address] [place] [address] Persons living in home: Same as support system Barriers to returning home: None Baseline functional status- ambulation: Independent Functional status-baseline personal care: Independent Baseline functional status- driving: Independent Baseline functional status- grocery shopping: Independent Functional status-baseline housekeeping: Independent Functional status-baseline meal prep: Independent Current functional status same as prior: Yes Do you have a PCP?: Yes Name of PCP: [facility] Agency: No Provider Services: No DME Company: No Equipment: None Hemodialysis: No Community resources utilized: None Funding Resources: Commercial Prescription coverage plan: Commercial Pharmacy where meds are filled: Other Other pharmacy: [facility] Anticipated services prior to disharge: Continue Medical Eval Expected mode of discharge transportation: Same as support system Additional info required for discharge planning: Pending medical evaluation Recommended discharge plan: Home SFA Complete: Social Functional Assessment complete: Yes Alcohol Use Screening (AUDIT-C) How often do you have a drink containing alcohol?: Never SCORE: 0 Role of Care Management explained. Yes Any issues or concerns with obtaining/affording your medications at home: no. Are you or your support system able to case picker medications at discharge: yes. Describe: Have you or family you live with or family that is with you here in the hospital had: ? Recent history of travel to a high-risk area: no (example [place], [place]) ? Recent sick contacts before or during admission: no ? Contact with a proven COVID-19 case: no ? Symptoms: fever, dry cough, fatigue, difficulty breathing: no ? Attended recent events with a gatherings of > 10 people: no Do you have at least 30 days of all your medications available? yes Do you have My Chart set up? no Patient notified that they may be receiving a call regarding a follow-up visit after discharge. yes Visitor policy was reviewed with patient/family. yes Due to the no visitor policy is there anyone you would like to list that needs to be updated regarding your care and plan for discharge. Geovanni Cameron RN, BSN [facility] ADC Hosiery Operator O [phone] F [phone] . documented in this encounter Plan of Treatment Date Type Specialty Care Team Description 10/12/2019 Telemedicine Visit Internal Medicine Lilibeth Andrade MD [address] [place] [address] [address] [place], [place] [address] [phone] 10/14/2019 Telemedicine Visit Psychiatry Yogi Meza MD [address] [place] [id number] Mendez Martinez MD [address] [place] [address]. [place] [address] 10/19/2019 Telemedicine Visit Endocrinology Diabetes & JonesZhen MD [facility] [address] [place], [place] [address] 10/27/2019 Office Visit Pulmonary Disease Max Aguiar MD [address] [place] [address] [address] [place], [place] [address] [phone] 11/02/2019 Telemedicine Visit Internal Medicine Lilibeth Andrade MD [address] [place] [address] [address] [place], [place] [address] [phone] 11/30/2019 Office Visit Cardiology Practitioner, Heart Failure Nurse 12/02/2019 Appointment Cardiac Electrophysiology Outpt-Simi, Pacemaker/Icd 12/02/2019 Office Visit Oncology Lincoln Griffiths MD [address] [place], [place] [address] [phone] 12/08/2019 Office Visit Ophthalmology Yariel Tineo MD [address] [place] [address]. [place], [place] [id number] 02/08/2020 Office Visit Cardiology Robert Adkins MD [address] [facility] [address] [place] [address] [phone] Name Type Priority Associated Diagnoses Order S chedule TROPONIN I LAB Routine Chest pain in adult ONCE for 1 Occurrences starting 2019 until 10/11/2019 CBC WITH DIFF LAB Routine EVERY MORNING AT 0500 for 5 Days starting 10/12/2019 unti l 10/16/2019, 1 c ompleted BASIC METABOLIC PANEL LAB Routine EVERY MORNING AT 0500 for (NA, K, CL, CO2, GLUCOSE, 5 Days starting BUN, CREATININE, CA) 020 until 10/16/2019, 1 c ompleted PROTHROMBIN TIME / INR LAB Routine EVERY MORNING AT 0500 for 5 Days starting 10/12/2019 unti l 10/16/2019, 1 c ompleted Health Maintenance Due Date [...] 2019 ( Insurance / Financial) CREATININE (SERUM) 10/10/2020 10/11/2019, 09/16/2019, 09/11/2019, Additional history exists COLONOSCOPY 04/22/2027 04/22/2017 DTaP,Tdap,and Td Vaccines 06/26/2027 06/26/2017, 03/19/2015 Postponed from (1 - Tdap) 1980 (Not Indicated) documented as of this encounter Implants Implanted Type Area Ip Architect Device Shelf Model / Identifier Expiration Serial / Date Lot Prolene Mesh MESH Right: Ethicon 12/20/2020 PMSK / Implanted: Qty: 1 on 07/04/2016 by Alfonso Martinez MD at [facility] [employer] PMSK / [id number] Pacemaker PACEMAKER Stent-06/24/2016 Implanted: 06/24/2016 (Quantity not on file) documented as of this encounter Procedures Procedure Name Priority Date/Time Associated Comments Diagnosis POCT GLUCOSE Routine 10/12/2019 11:03 Results for this (AUTOMATED) AM CDT procedure are i n the results section. POCT GLUCOSE Routine 10/12/2019 7:31 Results for this (AUTOMATED) AM CDT procedure are i n the results section. CBC WITH DIFFERENTIAL Routine 10/12/2019 4:04 Re sults for this AM CDT procedure are i n the results section. PROTHROMBIN TIME / Routine 10/12/2019 4:04 Resul ts for this INR AM CDT procedure are i n the results section. CBC WITH DIFFERENTIAL Routine 10/12/2019 4:04 Re sults for this AM CDT procedure are i n the results section. BASIC METABOLIC PANEL Routine 10/12/2019 4:04 Re sults for this (NA, K, CL, CO2, AM CDT procedure a re in GLUCOSE, BUN, the results CREATININE, CA) section. TROPONIN I Routine 10/12/2019 4:04 Results for this AM CDT procedure are i n the results section. TROPONIN I Routine 10/12/2019 12:00 Results for this AM CDT procedure are i n the results section. CORONAVIRUS COVID-19 STAT 10/11/2019 4:58 Chest pain in ad ult Results for this TESTING PM CDT procedure are i n the results section. CBC WITH DIFFERENTIAL STAT 10/11/2019 4:58 Chest pain in a dult Results for this PM CDT procedure are i n the results section. N-TERMINAL PRO-BNP STAT 10/11/2019 4:58 Chest pain in adul t Results for this PM CDT procedure are i n the results section. ACTIVATED PARTIAL STAT 10/11/2019 4:58 Chest pain in adult Results for this THRMPLAS [place] PM CDT procedure are i n the results section. PROTHROMBIN TIME / STAT 10/11/2019 4:58 Chest pain in adul t Results for this INR PM CDT procedure are i n the results section. CBC WITH DIFFERENTIAL Routine 10/11/2019 4:58 Chest pain in a dult Results for this PM CDT procedure are i n the results section. BASIC METABOLIC PANEL STAT 10/11/2019 4:58 Chest pain in a dult Results for this (NA, K, CL, CO2, PM CDT procedure a re in GLUCOSE, BUN, the results CREATININE, CA) section. HEPATIC FUNCTION STAT 10/11/2019 4:58 Chest pain in adult Results for this PANEL (74917) PM CDT procedure are in (ALB,T.PRO,BILI the results T,BU/BC,ALT,AST,ALK section. PHOS) TROPONIN I STAT 10/11/2019 4:58 Chest pain in adult Resu lts for this PM CDT procedure are i n the results section. XR CHEST 1 VW COVID STAT 10/11/2019 4:24 Chest pain in donavon lt Results for this PM CDT procedure are i n the results section. EKG-12 LEAD STAT 10/11/2019 3:49 PM CDT EKG-12 LEAD Routine 10/11/2019 3:21 PM CDT documented in this encounter Results POCT GLUCOSE (AUTOMATED) (10/12/2019 11:03 AM CDT) Pathologist Sig nature POCT GLU 170 (H) 70 - 110 mg/dL [facility] Specimen Blood Performing Organization Address [facility] Phone Number [facility] CLIA: [id number], [address] [place], [place] [address] POCT GLUCOSE (AUTOMATED) (10/12/2019 7:31 AM CDT) Pathologist Sig nature POCT GLU 131 (H) 70 - 110 mg/dL [facility] Specimen Blood Performing Organization Address City/[facility] Phone Number [facility] CLIA: [id number], [address] [place], [place] [address] CBC WITH DIFFERENTIAL (10/12/2019 4:04 AM CDT) Pathologist Sig nature WBC 12.19 (H) 4.20 - 10.70 [facility] 10*3/L [facility] RBC 5.05 4.26 - 5.52 [facility] 10*6/L [facility] HGB 12.4 12.2 - 16.4 [facility] g/dL [facility] HCT 37.2 (L) 38.4 - 49.3 % [facility] MCV 73.7 (L) 81.7 - 95.6 fL [facility] MCH 24.6 (L) 26.1 - 32.7 pg [facility] MCHC 33.3 31.2 - 35.0 [facility] g/dL [facility] RDW-SD 44.4 38.5 - 51.6 fL [facility] RDW-CV 16.8 (H) 12.1 - 15.4 % [facility] PLT 291 150 - 328 [facility] 10*3/L [facility] MPV 9.4 (L) 9.8 - 13.0 fL [facility] NRBC/100 WBC 0.0 0.0 - 10.0 /100 [facility] WBCs [facility] NRBC x10^3 <0.01 10*3/L [facility] GRAN MAT (NEUT) % 69.9 % [facility] IMM GRAN % 0.60 % [facility] LYMPH % 20.2 % [facility] MONO % 7.9 % [facility] EOS % 1.0 % [facility] BASO % 0.4 % [facility] GRAN MAT x10^3(ANC) 8.53 (H) 1.99 - 6.95 [facility] 10*3/uL [facility]ITAL [facility] IMM GRAN x10^3 0.07 (H) 0.00 - 0.06 [facility] 10*3/uL [facility] LYMPH x10^3 2.46 1.09 - 3.23 [facility] 10*3/uL [facility] MONO x10^3 0.96 0.36 - 1.02 [facility] 10*3/uL H[facility]ITAL [facility] EOS x10^3 0.12 0.06 - 0.53 [facility] 10*3/uL [facility] BASO x10^3 0.05 0.01 - 0.09 [facility] 10*3/uL [facility] Specimen Blood - ARM, RIGHT Performing Organization Address City/State/Zipcode Phone Number [facility] CLIA: [id number], [address] [place], [place] [address] PROTHROMBIN TIME / INR (10/12/2019 4:04 AM CDT) PROTIME PATIENT 26.5 (H) 12.0 - 14.7 [facility] Seconds [facility] INR 2.6Comment: Normal [facility] INR <1.1; Warfarin [facility] Therapeutic range LABORATORY 2.0 to 3.0 or 2.5 to 3.5, depending upon the indications. Specimen Blood - ARM, RIGHT Performing Organization Address City/State/Zipcode Phone Number [facility] CLIA: [id number], [address] [place], [place] [address] BASIC METABOLIC PANEL (NA, K, CL, CO2, GLUCOSE, BUN, CREATININE, CA) (10/12/2019 4:04 AM CDT) NA 137 135 - 145 [facility] mmol/L [facility] K 3.5 3.5 - 5.0 [facility] mmol/L [facility] CL 100 98 - 108 mmol/L [facility] [facility] CO2 TOTAL 32 (H) 23 - 31 mmol/L [facility] AGAP 5 2 - 16 [facility] BUN 18 7 - 23 mg/dL [facility] GLUCOSE 121 (H) 70 - 110 mg/dL [facility] CREATININE 1.27 (H) 0.60 - 1.25 [facility] mg/dL [facility] CALCIUM 9.6 8.6 - 10.6 [facility] mg/dL [facility] eGFR Calculation 60.0 mL/min/1.73m2 [facility] ([facility]AT[facility] [place]i) eGFR Calculation 72.8 mL/min/1.73m2 [facility] () [facility] Specimen Blood - ARM, RIGHT Narrative Performed At Association of Glomerular Filtration Rate (GFR) [facility] and Staging of Kidney Disease* [...] abnormalities in imaging tests). Performing Organization Address [facility] Cent[facility] Phone Number [facility] CLIA: [id number], [address] [address] [address] TROPONIN I (10/12/2019 4:04 AM CDT) Pathologist Sig nature TROPONIN I <0.012 <=0.034 ng/mL [facility] Specimen Blood - ARM, RIGHT Narrative Performed At Equal or Less than 0.034 ng/ml---Normal [facility] Note: Cardiac troponin begins to [...] patient's use of biotin. Performing Organization Address [facility] Phone Number [facility] CLIA: [id number], [address] TROPONIN I (10/12/2019 12:00 AM CDT) Pathologist Sig nature TROPONIN I <0.012 <=0.034 ng/mL [facility] Specimen Blood - ARM, RIGHT Narrative Performed At Equal or Less than 0.034 ng/ml---Normal [facility] Note: Cardiac troponin begins to [...] biotin. Performing Organization Address City/State/Zipcode Phone Number [facility] CLIA: [id number], [address] [place], [place] [address] CBC WITH DIFFERENTIAL (10/11/2019 4:58 PM CDT) Pathologist Sig nature WBC 13.40 (H) 4.20 - 10.70 [facility] 10*3/L [facility] RBC 5.49 4.26 - 5.52 [facility] 10*6/L [facility] HGB 13.3 12.2 - 16.4 [facility] g/dL [facility] HCT 41.5 38.4 - 49.3 % [facility] MCV 75.6 (L) 81.7 - 95.6 fL [facility] MCH 24.2 (L) 26.1 - 32.7 pg [facility] MCHC 32.0 31.2 - 35.0 [facility] g/dL [facility] RDW-SD 45.4 38.5 - 51.6 fL [facility] RDW-CV 16.8 (H) 12.1 - 15.4 % [facility] PLT 327 150 - 328 [facility] 10*3/L [facility] MPV 9.9 9.8 - 13.0 fL [facility] NRBC/100 WBC 0.0 0.0 - 10.0 /100 [facility] WBCs [facility] NRBC x10^3 <0.01 10*3/L [facility] GRAN MAT (NEUT) % 74.8 % [facility] IMM GRAN % 0.60 % [facility] LYMPH % 15.7 % [facility] MONO % 7.9 % [facility] EOS % 0.6 % [facility] BASO % 0.4 % [facility] GRAN MAT x10^3(ANC) 10.01 (H) 1.99 - 6.95 [facility] 10*3/uL HOSPITAL LABORATORY IMM GRAN x10^3 0.08 (H) 0.00 - 0.06 [facility] 10*3/uL HOSPITAL LAB[facility]ATORY LYMPH x10^3 2.11 1.09 - 3.23 [facility] 10*3/uL HOSPITAL LABORATORY MONO x10^3 1.06 (H) 0.36 - 1.02 [facility] 10*3/uL HOSPITAL LABORATORY EOS x10^3 0.08 0.06 - 0.53 [facility] 10*3/uL HOSPITAL LABORATORY BASO x10^3 0.06 0.01 - 0.09 [facility] 10*3/uL HOSPITAL LABORATORY Specimen Blood - ARM, RIGHT Performing Organization Address City/State/Zipcode Phone Number [facility] CLIA: [id number], [address] CORONAVIRUS COVID-19 TESTING (10/11/2019 4:58 PM CDT) Pathologist Sig nature SARS-CoV-2 Not Detected Not Detected [facility] Specimen Swab - NASOPHARYNGEAL SWAB Narrative Performed At ID NOW COVID-19 Assay is an isothermal nucleic [facility]ORY acid amplification test intended for the qualitative detection of nucleic acid from SARS-CoV-2 viral RNA in nasopharyngeal (ASSIGNMENT OFFICER) specimens. It is used under Emergency Use Authorization (EUA) by FDA. The limit of detection (LOD) of the assay is 125 Genome Equivalents/mL. A positive result is indicative of the presence of SARS-CoV-2 RNA. Clinical correlation with patient history and other diagnostic information is necessary to determine patient infection status. A negative (Not Detected) result does not preclude SARS-CoV-2 infection. Clinical correlation with patient history and other diagnostic information should be used in patient management decisions. Invalid: Please collect a new specimen for repeat patient testing if clinically indicated. Performing Organization Address City/State/Zipcode Phone Number [facility] CLIA: [id number], [address] N-TERMINAL PRO-BNP (10/11/2019 4:58 PM CDT) Pathologist Sig nature NT-proBNP 32 <=125 pg/mL [facility] Specimen Blood - ARM, RIGHT Narrative Performed At Biotin has been reported to cause a negative [facility] bias, interpret results relative to patient's use of biotin. Performing Organization Address City/State/Zipcode Phone Number [facility] CLIA: [id number], [address] Prothrombin Time (PT) / INR (10/11/2019 4:58 PM CDT) PROTIME PATIENT 23.0 (H) 12.0 - 14.7 [facility] LABORATORY INR 2.1Comment: Normal [facility] INR <1.1; Warfarin [facility] Therapeutic range LABORATORY 2.0 to 3.0 or 2.5 to 3.5, depending upon the indications. Specimen Blood - ARM, RIGHT Performing Organization Address [facility] Phone Number [facility] CLIA: [id number], [address] aPTT (10/11/2019 4:58 PM CDT) Pathologist Sig nature APTT Patient 51 (H) 23 - 38 Seconds [facility] Specimen Blood - ARM, RIGHT Narrative Performed At The [facility] patient population mean normal value [facility] for aPTT is 30 seconds. Performing Organization Address City/[facility]/Zipcode Phone Number [facility] CLIA: [id number], [address] Troponin I (10/11/2019 4:58 PM CDT) Pathologist Sig nature TROPONIN I <0.012 <=0.034 ng/mL [facility] Specimen Blood - ARM, RIGHT Narrative Performed At Equal or Less than 0.034 ng/ml---Normal [facility] Note: Cardiac troponin begins to [...] patient's use of biotin. Performing Organization Address [facility] [place] Phone Number [facility] CLIA: [id number], [address] [place] [address] Hepatic Function Panel (ALB, T.PRO, BILI T, BU/BC, ALT, AST, ALK PHOS) (10/11/2019 4:58 PM CDT) Pathologist Sig nature TOTAL BILI 0.5 0.1 - 1.1 mg/dL [facility] BILI UNCON 0.5 0.1 - 1.1 mg/dL [facility] BILI CONJ 0.0 0.0 - 0.3 mg/dL [facility] T PROTEIN 8.2 6.3 - 8.2 g/dL [facility] ALBUMIN 4.3 3.5 - 5.0 g/dL [facility] ALK PHOS 118 34 - 122 U/L [facility] ALTv 33 5 - 50 U/L [facility] AST(SGOT) 26 13 - 40 U/L [facility] Specimen Blood - ARM, RIGHT Performing Organization Address [facility]i Phone Number [facility] CLIA: [id number], [address] Basic Metabolic Panel (NA, K, CL, CO2, GLUCOSE, BUN, CREATININE, CA) (10/11/2019 4:58 PM CDT) NA 138 135 - 145 [facility] mmol/L [facility] K 3.8 3.5 - 5.0 [facility] mmol/L [facility] CL 98 98 - 108 mmol/L [facility] CO2 TOTAL 32 (H) 23 - 31 mmol/L [facility] AGAP 8 2 - 16 [facility] BUN 17 7 - 23 mg/dL [facility] GLUCOSE 187 (H) 70 - 110 mg/dL [facility] CREATININE 1.29 (H) 0.60 - 1.25 [facility] mg/dL [facility] CALCIUM 9.7 8.6 - 10.6 [facility] mg/dL [facility] eGFR Calculation 59.0 mL/min/1.73m2 [facility] ([facility] [place]i) eGFR Calculation 71.5 mL/min/1.73m2 [facility] () [facility] Specimen Blood - ARM, RIGHT Narrative Performed At Association of Glomerular Filtration Rate (GFR) [facility] and Staging of Kidney Disease* [...] tests). Performing Organization Address City/State/Zipcode Phone Number [facility] CLIA: [id number], [address] [place], [place] [address] XR [facility] COVTN (10/11/2019 4:24 PM CDT) Specimen Impressions Performed At PACS/VR/DOSE No acute intrathoracic abnormality, specifically no de tectable radiographic findings to suggest COVID-19 pneumonia. Mild pulmonary vascular congestion Disclaimer: Generally, the findings on c hest imaging in COVID-19 are not specific, and overlap with other infecti ons, including influenza, H1N1, SARS and MERS. According to the Centers for Disease Control (CDC) and recent statement of the [place] [employer], viral testing remai ns the only specific method of diagnosis. Confirmation with the viral test is required, even if radiologic findings are suggestive of CO VID-[address]. Preliminary Report Dictated by Resident: Kathi Avalos MD., have reviewed this study and agree with the above report. Narrative Performed At PROCEDURE: CHEST, SINGLE VIEW PACS/VR/DOSE CLINICAL INDICATION: chest pain COMPARISON: XR CHEST 2 VW, 08/08/2019. FINDINGS: Lungs: No focal or multifocal airspace o pacifications. Mild pulmonary vascular congestion is present No pleural effusion or pneumothorax is seen. The heart is normal in size. No acute bony abnormality. Left chest wa ll cardiac pacemaker with tips terminating in the right atrium and righ t ventricle. Procedure Note [facility], Radiant Results Inft User - 2019 4:51 PM CDT PROCEDURE: CHEST, SINGLE VIEW CLINICAL INDICATION: chest pain COMPARISON: XR CHEST 2 VW, 08/08/2019. FINDINGS: Lungs: No focal or multifocal airspace o pacifications. Mild pulmonary vascular congestion is present No pleural effusion or pneumothorax is s een. The heart is normal in size. No acute bony abnormality. Left chest wa ll cardiac pacemaker with tips terminating in the right atrium and righ t ventricle. IMPRESSION No acute intrathoracic abnormality, spec ifically no detectable radiographic findings to suggest COVID-19 pneumonia. Mild pulmonary vascular congestion Disclaimer: Generally, the findings on c hest imaging in COVID-19 are not specific, and overlap with other infecti ons, including influenza, H1N1, SARS and MERS. According to the Centers for Disease Con trol (CDC) and recent statement of the [place] [employer], viral testing remains the only specific method of diagnosis. Confirmation with t he viral test is required, even if radiologic findings are suggestive of CO VID-[address]. Preliminary Report Dictated by Resident: Kathi Avalos MD., have reviewed this study and agree with the above report. Performing Organization Address City/State/Zipcode Phone Number PACS/VR/DOSE documented in this encounter Visit Diagnoses Diagnosis Chest pain, unspecified type Anxiety Anxiety state, unspecified Chronic diastolic congestive heart failu re Chronic diastolic heart failure Coronary artery disease involving [place] coronary artery of [place] heart with angina pectoris Essential hypertension Unspecified essential hypertension Morbid obesity with body mass index of 4 0.0-49.9 GREGORIO (obstructive sleep apnea) Obstructive sleep apnea (adult) (pediatr ic) Pacemaker Cardiac pacemaker in situ Other pulmonary embolism without acute c or pulmonale, unspecified chronicity Type 2 diabetes mellitus without complic ation documented in this encounter Administered Medications Medication Order MAR Action Action Date Dose Rate Site acetaminophen (TYLENOL) tablet 650 mg 650 mg, Oral, Q6HPRN, Starting Fri at 1839, Until Discontinued, Routine, Pain (scale 1-3) allopurinoL (ZYLOPRIM) tablet 300 mg Given 10/12/2019 8:38 AM CDT 300 mg 300 mg, Oral, DAILY, First dose on Fri10/12/19 at 0900, Until Discontinued, Routine ARIPiprazole (ABILIFY) tablet 15 mg Given 10/12/2019 8:39 AM CDT 15 mg 15 mg, Oral, DAILY, First dose on Fri10/12/19 at 0900, Until Discontinued, Routine buprenorphine HCL (SUBUTEX) sublingual tablet Given 9:18 AM CDT 8 mg 8 mg 8 mg, Sublingual, BID, First dose on Fri10/11/19 at 2100, Until Discontinued, Routine Given 10/11/2019 11:02 PM CDT 8 mg clonazePAM (KLONOPIN) tablet 1 mg Given 10/12/2019 12:51 PM CDT 1 mg 1 mg, Oral, TID, First dose on Fri10/12/19 at 0800, Until Discontinued, Routine Given 10/12/2019 4:46 AM CDT 1 mg clopidogreL (PLAVIX) tablet 75 mg Given 10/12/2019 8:39 AM CDT 75 mg 75 mg, Oral, DAILY, First dose on Fri10/12/19 at 0900, Until Discontinued, Routine dextrose 50 % in water (D50W) injection 25 mL 25 mL, Slow IV Push, PRN, Starting Fri at 0022, Until Discontinued, LIVIA, Blood Glucose < or = 70 mg/dL and patien t is unable to swallow or has mental status changes. foLIC acid (FOLATE) tablet 1 mg Given 10/12/2019 8:38 AM CDT 1 mg 1 mg, Oral, DAILY, First dose on Fri10/12/19 at 0900, Until Discontinued, Routine furosemide (LASIX) tablet 80 mg Given 10/12/2019 8:39 AM CDT 80 mg 80 mg, Oral, QAM+PM, First dose on Fri10/12/19 at 0900, Until Discontinued, Routine glucagon (GLUCAGEN DIAGNOSTIC KIT) injec tion 1 mg 1 mg, Intramuscular, PRN, Starting Fri at 0022, Until Discontinued, LIVIA, Blood Glucose < or = 70 mg/dL and patient is unable to swallow or has mental changes. HYDROcodone-acetaminophen (NORCO 5) 5-32 5 mg tablet 1 tablet 1 tablet, Oral, Q6HPRN, Starting 09/22 at 1839, Until Fri10/13/19 at 1838, Routine, Pain (scale 4-6) insulin glargine (LANTUS Given 10/12/2019 8:39 AM CDT 10 Units Right Upper Arm-SC U-100) injection 10 Units 10 Units, Subcutaneous, DAILY, First dose on Fri10/12/19 at 0900, Until Discontinued methocarbamol (ROBAXIN) tablet 750 mg Given 10/12/2019 8:38 AM CDT 750 mg 750 mg, Oral, BID, First dose on Fri10/12/19 at 0800, Until Discontinued, Routine morpHINE injection 4 mg 4 mg, Slow IV Push, Q4HPRN, Starting Fri10/11/19 at 18 39, Until Fri10/12/19 at 1838, Routine, Pain (scale 7-10) pantoprazole (PROTONIX) EC tablet 40 mg Given 10/12/2019 8:38 AM CDT 40 mg 40 mg, Oral, BID, First dose on Fri10/11/19 at 2145, Until Discontinued, Routine Given 10/11/2019 11:02 PM CDT 40 mg Polyethylene Glycol 3350 (MIRALAX) powde r 17 g Given 10/12/2019 8:37 AM CDT 17 g 17 g, Oral, DAILY, First dose on Fri10/12/19 at 0900, Until Discontinued ranolazine (RANEXA) 12 hr tablet 1,000 m g Given 10/12/2019 8:38 AM CDT 1,000 mg 1,000 mg, Oral, BID, First dose on Fri10/12/19 at 0800, Until Discontinued Sliding Scale Insulin-Regular + Given 10/12/2019 11:21 AM 2 Unit s Right Upper Fsbg Testing CDT Arm-SC Subcutaneous, AC+HS, First dose on Fri10/12/19 at 0730, Until Discontinued, Routine warfarin (COUMADIN) tablet 10 mg Given 10/11/2019 11:02 PM CDT 5 mg 10 mg, Oral, DAILY AT 1700, First dose on Fri10/11/19 at 2145, Until Discontinued, Routine Medication Order MAR Action Action Date Dose Rate Site LORazepam (ATIVAN) injection 1 mg Given 10/11/2019 6:37 PM CDT 1 mg 1 mg, Slow IV Push, ONCE, 1 dose, Fri10/11/19 at 1945, STAT nitroglycerin (NITROSTAT) sublingual tablet Given 09/22 5:50 PM CDT 0.4 mg 0.4 mg 0.4 mg, Sublingual, ONCE, 1 dose, Fri10/11/19 at 1815, LIVIA documented in this encounter Insurance Payer Benefit Plan / Subscriber ID Effective Phone Address [facility] Dates [facility] [id number] 2017-Lux [phone] [address] [facility] [phone] [place] [address] (Home) [place] [address] documented as of this encounter Advance Directives Name Relationship Healthcare Agent Communication Relationship Keaton Nelson Spouse Primary healthcare agent Elisabeth Soliz Sibling First alternate healthcare [id number] agent (Mobile)
--- OUTSIDE RECORDS SUMMARY | 2019-11-07 22:50 | XMS REPORT | Summary of Care ---
:1970 Author Organization [facility] - Health Address [address] [place] [address] Care Team Providers Name Role Phone Elmer Andrade MD Primary Care Provider NAVJOT Espinoza Unavailable Unavailable MD Rocco Unavailable Mary Quezada MD Unavailable Genna AnandP Unavailable Unavailable MD Casimiro Unavailable Ricardo Rodriguez DO [employer] Reason for Visit Reason Comments Transition Of Care Encounter Details Date Type Department Care Team Description 10/13/2019 Transition [facility] Care [facility] [address] [address] Allergies Active Allergy Reactions Severity Noted Date [...] as of this encounter (statuses as of 10/13/2019) Medications Medication Sig Dispensed Refills Start Date [...] 2 (two) injectionIndications: weeks. Vitamin B12 deficiency ondansetron (ZOFRAN ODT) 4 Take 1 tablet by mouth 14 tablet 0 06/23/2019 Active mg disintegrating every 8 (eight) hours tabletIndications: as needed for Nausea Hyperglycemia and Vomiting (N/V). Insulin [facility], Disposable, Use as directed, 1x 100 Each [...] as of this encounter (statuses as of 10/13/2019) Active Problems Problem Noted Date Acute hypokalemia [...] Added automatically from request for lillian lawson [id number] Syncope 04/01/2017 Chest pain, rule out acute [...] Chest pain 06/12/2016 Coronary artery disease involving [place] coronary briseyda ry of [place] heart 06/12/2016 with angina pectoris ID (myocardial infarction) 06/12/2016 Type 2 diabetes mellitus without complication 06/12/20 16 Essential hypertension 06/12/2016 History of alcohol abuse Overview: Sober for 16 years documented as of this encounter (statuses as of 10/13/2019) Resolved Problems Problem Noted Date Resolved Date Chest pain radiating to arm 08/08/2016 08/19/2016 Abdominal pain 07/19/2016 08/19/2016 History of epidural anesthesia 07/04/2016 7 Morbid obesity with body mass index of 50 or higher 06/26/19 17 08/19/2016 Obesity (BMI 30-39.9) 06/12/2016 08/19/2016 documented as of this encounter (statuses as of 10/13/2019) Immunizations Name Administration Dates Next Due Td [...] Treatment Date Type Specialty Care Team Description 10/14/2019 Telemedicine Visit Psychiatry Yogi Meza MD [address] [place] [address] Mendez Martinez MD [address] [place] [address]. [place] [phone] 10/19/2019 Telemedicine Visit Endocrinology Diabetes & JonesZhen MD Metabolism [facility] [place] [address] [phone] 10/27/2019 Office Visit Pulmonary Disease Max Aguiar MD [address] [facility] [address] [place], [place] [address] [phone] 11/02/2019 Telemedicine Visit Internal Medicine Lilibeth Andrade MD [address] [facility] [address] [place], [place] [address] [phone] 11/30/2019 Office Visit Cardiology Practitioner, Heart Failure Nurse 12/02/2019 Appointment Cardiac Electrophysiology Outpt-Simi, Pacemaker/Icd 12/02/2019 Office Visit Oncology Lincoln Griffiths MD [address] [place], [place] [address] [phone] 12/08/2019 Office Visit Ophthalmology Yariel Tineo MD [address] [place] [address]. [place], [place] [phone] 02/08/2020 Office Visit Cardiology Robert Adkins MD [address] [facility] [id number] [place] [address] Health Maintenance Due Date Last [...] 2019 ( Insurance / Financial) CREATININE (SERUM) 10/11/2020 10/12/2019, 10/11/2019, 09/16/2019, Additional history exists COLONOSCOPY 04/22/2027 04/22/2017 DTaP,Tdap,and Td Vaccines 06/26/2027 06/26/2017, 03/19/2015 Postponed from (1 - Tdap) 1980 (Not Indicated) documented as of this encounter Implants Implanted Type Area Patient Access Representative Device Shelf Model / Identifier Expiration Serial / Date Lot Prolene Mesh MESH Right: Ethicon 12/20/2020 PMSK / Implanted: Qty: 1 on 07/04/2016 by Alfonso Martinez MD at [facility] [employer] PMSK / [id number] Pacemaker PACEMAKER Stent-06/24/2016 Implanted: 06/24/2016 (Quantity not on file) documented as of this encounter Results Not on filedocumented in this encounter Insurance Payer Benefit Plan / Subscriber ID Effective Phone Address T e Group Dates [facility] [id number] 2017-Prese [phone] [employer] [place] [facility] [phone] [place] [address] documented as of this encounter Advance Directives Name Relationship Healthcare Agent Communication Relationship Keaton Nelson Spouse Primary healthcare agent Elisabeth Soliz Sibling First alternate healthcare 9-6 39-4 agent (Mobile)
--- OUTSIDE RECORDS SUMMARY | 2019-11-07 22:52 | XMS REPORT | Summary of Care ---
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 [address] [place], [place] (Fax) [phone] Allergies Active Allergy Reactions Severity Noted [...] as of this encounter (statuses as of 10/19/2019) Medications Medication Sig Dispensed Refills Start Date [...] for Nausea Hyperglycemia and Vomiting (N/V). Insulin [place], Use as directed, 100 Each 1 06/25/2019 Active Disposable, (RELION PEN 1x daily, NEEDLES) 32 gauge x DX:E11.9 32" Ndle metOLazone 2.5 mg Take 1 tablet [...] (two) times daily. desvenlafaxine Take 2 tablets by 60 tablet 2 10/14/2019 Active succinate (PRISTIQ) 100 mouth daily. mg 24 hr tabletIndications: Severe episode of recurrent major depressive disorder, without psychotic features, Generalized anxiety disorder Insulin Glargine inject 14 Units 15 mL 1 10/19/2019 Active (LANTUS SOLOSTAR U-100 under the skin INSULIN) 100 unit/mL (3 daily. mL) injectionIndications: Type 2 diabetes mellitus with cardiac complication Insulin Glargine inject 12-14 3 mL 0 07/07/2019 04/ Discontinued (LANTUS SOLOSTAR U-100 Units under the (Reorder) INSULIN) 100 unit/mL (3 skin daily. 20 mL) injection documented as of this encounter (statuses as of 10/19/2019) Active Problems Problem Noted Date Acute hypokalemia [...] Added automatically from request for lillian lawson [id number] Syncope 04/01/2017 Chest pain, rule out acute [...] Chest pain 06/12/2016 Coronary artery disease involving [place] coronary briseyda ry of [place] heart 06/12/2016 with angina pectoris [place] (myocardial infarction) 06/12/2016 Type 2 diabetes mellitus without complication 06/12/20 16 Essential hypertension 06/12/2016 History of alcohol abuse Overview: Sober for 16 years documented as of this encounter (statuses as of 10/19/2019) Resolved Problems Problem Noted Date Resolved Date Chest pain radiating to arm 08/08/2016 08/19/2016 Abdominal pain 07/19/2016 08/19/2016 History of epidural anesthesia 07/04/2016 7 Morbid obesity with body mass index of 50 or higher 06/26/19 17 08/19/2016 Obesity (BMI 30-39.9) 06/12/2016 08/19/2016 documented as of this encounter (statuses as of 10/19/2019) Immunizations Name Administration Dates Next Due Td [...] Travel End No recent travel history available. COVID-19 Exposure Response Date Recorded In the last month, have you been in contact with No / Unsure 10/11/2019 3:20 PM CDT someone who was confirmed or suspected to have Coronavirus / COVID-19? documented as of this encounter Last Filed Vital Signs Not on filedocumented in this encounter Patient Instructions Patient InstructionsZhen Jones MD - 10/19/2019 3:00 PM CDTContinue Lantus 14 units every morning Continue metformin and Trulicity documented in this encounter Progress Notes Zhen Jones MD - 10/19/2019 3:00 PM CDT TELEHEALTH NOTE Verbal consent obtained from Patient: John Paul Nelson due to the COVID-19 pandemic for telehealthservices provided below. Communication with patient was conducted via Telephone due to patient unable to obtain video call option. Location of Patient: Home Location of Provider: Office Date of Service: 10/19/2019 Chief Complaint: Type 2 diabetes mellitus, Secondary hypogonadism- follow up HPI: John Paul Nelson is a 49 year old male with Past Medical History: Diagnosis Date AAA (abdominal aortic aneurysm) 3 cm Anxiety CHF (congestive heart failure) 2-liter fluid restriction; Dr. Valiente is hand turner Degenerative disc disease, lumbar on CT scan Depression Diabetes Hernia s/p surgery 06/2016 History of alcohol abuse Stopped 1999 History of pernicious anemia HLD (hyperlipidemia) Hypertension Kidney stones calcium oxalate Lung nodule largest was 7mm on CT scan in 07/2017. smoking history. will need repeat in 6-12 months. [place] (myocardial infarction) November 2015, 1 stent in RCA Microcytic anemia low MCV 2017 Right bundle branch block Uveitis who is called today for follow up Diabetes Mellitus Type 2. Patient's diabetes is complicated by atherogenic diet, hyperlipidemia, hypertension , macrovascular complications: Congestive Heart Failure, neuropathy: Peripheral and lowerextremity and obesity. Per cardiology: PMH HFpEF, DM, HTN, obesity, GREGORIO, pAfib, PE, and CAD STEMI in 11/2015 treated with RCA PCI in [facility] in [place]. 2 weeks later he had recurrent chest [...] h/o UTI, yeast infection. NICHOLAS was in 06/2018 with A1C worsened to 8.6. And was advised to increased Lantus 14 units daily He had ER admission 2 weeks ago for chest pain and cardiac work up was unremarkable Patient has no acute problems today. Reports compliance with Diabetes regimen: Metformin ER 500 mg QAM, Trulicity 0.75 mg weekly and Lantus 14 units daily Patient checks glucose twice a day Average Glucose readings: AM fasting 120-130s after dinner 170-200, Hypoglycemia: None Reports better compliance with diet . He has been unable to exercise due to back pain , CHF and COVID Reports 8-9 lbs weight loss Hypogonadism: Baseline testosterone total 20-30 range twice Cause: Secondary to chronic past opIoid use Prolactin minimally elevated. No galactorrhea Symptoms: fatigue, mood changes, depression, loss of libido, infertility, muscle weakness, gynecomastia Admits to h/o chronic use of [place] since 1989' for back pain, infertility ( 30 years of marriage), ED and low libido, panic attacks. Current meds: androgel 2 PUMPS DAILY. Still has low libido and fatigue at baseline Dr Andrade checked hormones including repeated TFT's, PTH, ACTh stim, plasma metanephrine- all normal. HTN: Diagnosed several years ago, had elevation up to 230's systolic and normal potassium, until started aldactone, resulted in normalization of BP but developed hypokalemia ( On potassium replacement now). Later on Aldactone switched to Amiloride due to gynecomastia. Well controlled at least since 05/2017 ( [facility] records) Current [...] renin 10 He was referred to a optical glass silverer who ordered 24 hour urine aldosterone which [...] Patient has received Nutrition/Diet/Diabetes Education on today. MEDICATIONS: Patient's Medications START taking these medications No medications on file CONTINUE taking these medications which have NOT [...] D3) 2,000 UNIT TABLET Take by mouth. CLONAZEPAM 1 MG TABLET Take 1 pill [...] inject 0.75 mg under the skin weekly. FERROUS SULFATE (IRON) 325 MG (65 MG [...] jar then give tubes of cream. INSULIN NEEDLES, DISPOSABLE, (RELION PEN NEEDLES) 32 GAUGE X 5/32" NDLE Use as directed, 1x daily, DX:E11.9 KCL 20 MEQ TABLET Take 3 tablets by mouth 3 (three) times daily. MAGNESIUM OXIDE 400 MG MAGNESIUM TAB Take 1 tablet by mouth daily. METFORMIN ER 500 MG 24 HR TABLET Take 1 tablet by mouth daily with breakfast. METHOCARBAMOL 750 MG TABLET Take 750 mg by mouth 2 (two) times daily. METOLAZONE 2.5 MG TABLET Take 1 tablet by mouth 2 (two) times weekly on Friday and Friday. NITROGLYCERIN (NITROSTAT) 0.4 MG [...] day. START taking Modified Medications as Prescribed Modified Medication Previous Medication INSULIN GLARGINE (LANTUS SOLOSTAR U-100 INSULIN) 100 UNIT/ML (3 ML) INJECTION Insulin Glargine (LANTUS SOLOSTAR U-100 INSULIN) 100 unit/mL (3 mL) injection inject 14 Units under the skin daily. inject 12-14 Units under the skin daily. STOP taking these medications No medications on file ROS Constitutional: +intentional weight change, denies fatigue and hair loss Eyes: denies blurry vision, denies diplopia and denies pain. Neck: denies pain, denies swollen glands Cardiovascular: denies chest pain , denies irregular pulse and denies palpitations. Respiratory: denies dyspnea on exertion and denies shortness of breath. Gastrointestinal: denies abdominal pain, denies constipation and denies diarrhea. Genitourinary: denies burning and denies dysuria. Musculoskeletal: denies back pain, denies muscle pain and denies weakness. Skin: denies dry skin and denies hair changes. Neuro: denies numbness , denies tingling and denies tremor. Psych: negative. Endocrine:denies intolerance to cold, denies intolerance to heat, denies polydipsia, denies polyphagia and denies polyuria. TELEHEALTH EXAM Chest/ Lungs: Patient not short of breath during phone encounter. Breathing sounds are normal on thephone. Neuro: Patient answering questions appropriately. Alert. No additional exam as this is a telephone encounter. POCT GLU (mg/dL) Date Value 10/12/2019 170 (H) CREATININE (mg/dL) Date Value 10/12/2019 1.27 (H) CREATININE-Q (mg/dL) Date Value 11/24/2017 0.88 CHOL (mg/dL) Date Value 05/02/2019 204 (H) HDL (mg/dL) Date Value 05/02/2019 51 LDL CHOL (mg/dL) Date Value 05/02/2019 122 TRIG (mg/dL) Date Value 05/02/2019 156 MICROAL/CR (ug/mmol creatinine) Date Value 02/06/2019 542 POCT HBA1C (%) Date Value 07/07/2019 8.3 (A) 02/24/2019 8.2 HGB A1C (% NGSP) Date Value 08/17/2019 7.8 (H) Ref. Range 07/28/2018 09:52 02/24/2019 16:17 TESTOST Latest Ref Range: 132.0 - 813.0 ng/dL 241.0 150.0 ASSESSMENT/ PLAN John Paul Nelson is a 49 year old male with PMH as above presenting with: . Type 2 diabetes mellitus with cardiac complication -A1C (target=6-7%): 6.2 (10/09)--8.2(02/08)-->7.8(08/12) worsened from previous , 2/2 non compliance with diet -glucose range: hyperglycemia thru the day - without symptomatic hypoglycemia -complication: neuropathy nephropathy macrovascular: CAD -medication limitation: deferred insulin in past -diet: high carbs during holiday -exercise: limited by joint pain Plan -reinterated to check glucose BID alternating fasting and 2 hours post meals -urged compliance with diet/exercise - Insulin Glargine (LANTUS SOLOSTAR U-100 INSULIN) 100 unit/mL (3 mL) injection; inject 14 Units under the skin daily. Dispense: 15 mL; Refill: 1 - MICROALBUMIN URINE - SPOT SAMPLE; Future Patient Instructions Continue Lantus 14 units every morning Continue metformin and Trulicity 2. Secondary male [...] voices understanding to above Continue current replacement - TESTOSTERONE; Future - PROSTATIC SPECIFIC ANTIGEN; Future 3. Dyslipidemia Comment: Improved. Plan Takes Lipitor 40 mg - LIPID PANEL (08707)(TOTAL CHOLESTEROL, TRIGLYCERIDES, HDL); Future 4. Essential hypertension 5. High serum aldosterone [...] 24 hours Plan: Continue current BP meds After visit summary (AVS ) documentation will be available through [employer] for this encounter. A total of 25 minutes was spent on the Telephone due to patient unable to obtain video call option. Zhen Jones MD documented in this encounter Plan of Treatment Date Type Specialty Care Team Description 10/27/2019 Office Visit Pulmonary Disease Max Aguiar MD [address] [place] [address] [address] [address] [phone] 11/02/2019 Telemedicine Visit Internal Medicine Lilibeth Andrade MD [address] [place] [address] [address] [address] [phone] 11/08/2019 Nurse Visit Anti-coagulation Clinic Nurse, Ilc Anticoag 11/11/2019 Telemedicine Visit Psychiatry Mendez Martinez MD [address] [place] [address]. [place] [phone] 11/30/2019 Office Visit Cardiology Practitioner, Heart Failure Nurse 12/02/2019 Appointment Cardiac Electrophysiology Ho Shukla MD [address] [place] [phone] Outpt-Simi, Pacemaker/Icd 12/02/2019 Office Visit Oncology Lincoln Griffiths MD [address] [place], [place] [address] [phone] 12/08/2019 Office Visit Ophthalmology Yariel Tineo MD [address] [place] [address]. [place] [address] [phone] 02/08/2020 Office Visit Cardiology Robert Adkins MD [address] [facility] [id number] [place] [address] [phone] Name Type Priority Associated Diagnoses Order S chedule TESTOSTERONE LAB Routine Secondary male Expected: , hypogonadism Expires: 2020 PROSTATIC SPECIFIC LAB Routine Secondary male Expecte d: 10/19/2019, ANTIGEN hypogonadism Expires: 2020 MICROALBUMIN URINE - SPOT LAB Routine Type 2 diabetes mellitus Expected: 10/19/2019, SAMPLE with cardiac complication Ex karina: 10/18/2020 LIPID PANEL (37253)(TOTAL LAB Routine Dyslipidemia Ex pected: 10/19/2019, CHOLESTEROL, Expires: 2020 TRIGLYCERIDES, HDL) Health Maintenance Due Date Last Done Comments [...] of this encounter Implants Implanted Type Area Thoracic Surgeon Device Shelf Model / Identifier Expiration Serial / Date Lot Prolene Mesh MESH Right: Ethicon 12/20/2020 PMSK / Implanted: Qty: 1 on 07/04/2016 by Alfonso Martinez MD at [facility] [employer] PMSK / [id number] Pacemaker PACEMAKER Stent-06/24/2016 Implanted: 06/24/2016 (Quantity not [...] HIM [facility] [id number] 2017-Lux [phone] [address] [employer] [id number] [place] [address] (Home) [place] [address] documented as of this encounter Advance Directives Name Relationship Healthcare Agent Communication Relationship Keaton Nelson Spouse Primary healthcare agent Elisabeth Soliz Sibling [facility] healthcare [phone] [phone] agent (Mobile)
--- OUTSIDE RECORDS SUMMARY | 2019-11-07 22:52 | XMS REPORT | Clinical Summary ---
:1970 Author Organization [facility] Address [address] [place] [id number] Care Team Providers Name Role Phone Elmer Andrade MD Primary Care Provider NAVJOT Espinoza Unavailable Unavailable MD Rocco Unavailable Mary Quezada MD Unavailable Genna Anand Unavailable Unavailable MD Casimiro Unavailable Ricardo Rodriguez DO Nurse Practitioner Per Diem Allergies Active Allergy Reactions Severity Noted Date [...] with diabetes mellitus with breakfast. cardiac complication ZINC ORAL Take by mouth [...] every 2 (two) weeks. Vitamin B12 deficiency ondansetron (ZOFRAN ODT) Take 1 tablet by 14 tablet 0 06/23/19 20 Active 4 mg disintegrating mouth every 8 tabletIndications: (eight) hours as Hyperglycemia needed for Nausea and Vomiting (N/V). Insulin Baxter, Use as directed, 1x 100 Each 1 06/25/2019 Active Disposable, (RELION PEN daily, DX:E11.9 NEEDLES) 32 gauge x 5/32" Ndle Insulin Glargine (LANTUS inject 12-14 Units 3 mL 0 2019 Active SOLOSTAR U-100 INSULIN) under the skin 100 unit/mL (3 mL) daily. injection metOLazone 2.5 mg Take 1 tablet by 15 tablet 2 08/27/2019 Active tabletIndications: mouth 2 (two) times Vitamin B12 deficiency weekly on Friday and Friday. pantoprazole 40 mg EC Take 1 tablet by 180 tablet 3 08/27/2019 Active tabletIndications: Hiatal mouth 2 (two) times hernia daily. clopidogreL (PLAVIX) 75 Take 1 tablet [...] 3 (three) Hypokalemia times daily. atorvastatin (LIPITOR) 40 Take 1 tablet by 90 tablet 3 020 Active mg tablet mouth at bedtime. Ranolazine 1,000 mg Take 1 tablet by 60 tablet 4 10/08/2019 Active tablet mouth 2 (two) times daily. desvenlafaxine succinate Take 2 tablets by 60 tablet 2 020 Active (PRISTIQ) 100 mg 24 hr mouth daily. tabletIndications: Severe episode of recurrent major depressive disorder, without psychotic features, Generalized anxiety disorder eplerenone 50 mg Take 1 tablet by 60 tablet 0 08/19/201909/17 tabletIndications: mouth 2 (two) times 0 20 Hypokalemia daily for 30 days. aMILoride 5 mg Take 2 tablets by 120 tablet 0 08/25/201909/23 tabletIndications: mouth 2 (two) times 0 20 Hypokalemia daily for 30 days. 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 EFFICIENT SITE MANAGER Thaddeus Interiano, 0 Travel 0 Orders Only Doctor 0 Unassigned, [place] Telephone Cardiology Robert Adkins Assessment 0 MD Namita Travel 0 Refill Cardiology Al Valiente, Refill Reques t 0 Floorhand Visit Phlebotomy Vonda Kaur Chronic farzad stolic 0 Nelia, ENERGY EFFICIENT SITE MANAGER heart failure 2, [facility] Lab Telephone Cardiology Vonda Kaur Results 0 FILIBERTO Pickens Telephone Cardiology Robert Adkins Assessment 0 MD Namita Nurse Triage Catherine Talavera TIRCONOR; Fatigu e 0 D, RN Floorhand Visit Phlebotomy [place], Hyperkalemi a 0 Lilibeth Payne MD Pob, [facility] Lab Main Orders Only Doctor 0 Unassigned, [place] Refill Endocrinology Diabetes Zhen Jones MD R efill Request 0 & Metabolism Telemedicine Internal Medicine [place], Hyperkalem ia (Primary Dx); 0 Visit Lilibeth Payne MD Nail problem ; Dry skin; Memory problem; Anxiety Nurse Visit Anti-coagulation [place], Anticoagula tion management encounter; 0 Clinic Lilibeth Payne MD Other pulmonary embolism without acute c or pulmonale, unspecified chronicity Nurse, [facility] Antico Floorhand Visit Phlebotomy Vonda Kaur Chronic farzad stolic 0 FILIBERTO Pickens heart failure 2, Adc Lab Telephone Cardiology Robert Adkins Rx Concern/Q uestion 0 MD [facility] Cardiac Carayannopoulos, Atrial fibr illation, unspecified type (Primary Dx); 0 Encounter Electrophysiology MD Ho Pacemaker Simi, Remote Device Check At Home - Refill Cardiology Al Valiente, Refill Reques t 0 Office Visit Gastroenterology Lyric Mccarty ageal reflux disease without esophagitis (Primary Dx); 0 MD Ioana Hiatal hernia; Fatty liver dis ease, nonalcoholic; Tubular adenoma of colon; Iron deficiency anemia due to chronic blood loss Nurse Visit Anti-coagulation [place], Anticoagula tion management encounter; 0 Clinic Lilibeth Payne MD Other pulmonary embolism without acute c or pulmonale, unspecified chronicity Nurse, [facility] Antico Floorhand Visit Phlebotomy Maye Mccarty 0 MD Ioana heart failure [facility] Office Visit Cardiology Vonda Kaur Chronic diastol ic heart failure (Primary Dx); 0 FILBIERTO Pickens Vitamin B12 deficiency Practitioner, Heart Failure Nurse Telephone Cardiology Robert Adkins LAB WORK 0 MD Namita Telephone Cardiology Robert Adkins Orders (lab orders); 0 MD Namita Talk To Nurse Emergency Medicine - Inpatient Gaurav Wang, Hyp okalemia 0 - only DO Adal Moran, Naif PHILLIP Floorhand Visit Phlebotomy [place], [place], Chronic heart failure with preserved ejection fraction; 0 Other elevated white blood cell (WBC) co unt; [facility] Iron deficiency anemia, unspecified iron deficiency anemia type; Chronic diastol ic congestive heart failure; Stage 2 chronic kidney disease; Pulmonary embol ism, unspecified chronicity, unspecified pulmonary embolism type, unspecified whether acute cor pulmonale present Office Visit Oncology MusunLincoln schroedre, Pulmonary em bolism, unspecified chronicity, unspecified pulmonary embolism type, unspecified whether acute cor pulmonale present (Primary Dx); 0 Other elevated white blood cell (WBC) count; Iron deficiency anemia, unspecified iron deficiency anemia type; Chronic diastol ic congestive heart failure; Stage 2 chronic kidney disease Telephone Cardiology Chiquis Mcadams, Orders 0 Orders Only Doctor 0 Unassigned, [place] Telephone Cardiology Robert Adkins Notification ; LAB 0 MD Namita WORK Emergency Medicine - Inpatient ReevesSocorro S, Acut e hypokalemia 0 - only PAC Wallace Lea MD 0 Floorhand Visit Phlebotomy Robert Adkins Chronic heart failure 0 MD Namita with preserved 2, [facility] Lab ejection fracti on Telephone Internal Medicine Marv Andradeti on 0 Lilibeth Payne MD Nurse Visit Anti-coagulation [place] Anticoagula tion management encounter; 0 Clinic Lilibeth Payne MD Other pulmonary embolism without acute c or pulmonale, unspecified chronicity Nurse, [facility] Anticoag Telephone Cardiology Robert Adkins Rx Concern/Q uestion; 0 MD Namita LAB WORK Office Visit Cardiology Robert Adkins Chronic hear t failure with preserved ejection fraction (Primary Dx); 0 MD Namita Vitamin B12 def iciency Floorhand Visit Phlebotomy Robert Adkins Chronic heart failure 0 MD Namita with preserved 2, [facility] Lab ejection fracti on Orders Only Doctor 0 Unassigned, [place] Telephone Cardiology [facility] Orders 0 MD Namita Telephone Cardiology devan [facility] Assessment 0 MD Namita Emergency Emergency Medicine LuigiAmyHaider Chest p ain, unspecified type (Primary Dx); 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, 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 Congestive hear t failure, unspecified HF chronicity, unspecified heart failure type; Acute on chroni c diastolic congestive heart failure; Anxiety; Angina at rest; Hypervolemia, u nspecified hypervolemia type; Pacemaker; SCHILLING (dyspnea on exertion); Essential hyper tension; Type 2 diabetes mellitus without complication, with long-term current use of insulin Floorhand Visit Phlebotomy [facility] Chronic heart failure 0 MD Namita with preserved 2, [facility] Lab ejection fracti on Orders Only Doctor 0 Unassigned, [place] Telephone Cardiology [facility] LAB WORK 0 MD Namita Emergency Emergency Medicine Lissa Larkin R, Hypoka lemia (Primary Dx); 0 ENERGY EFFICIENT SITE MANAGER Weakness genera lized; Diarrhea, unspe cified type Floorhand Visit Phlebotomy [facility] Chronic heart failure 0 MD Namita with preserved 2, Adc Lab ejection fracti on Telephone Cardiology [facility] LAB WORK 0 MD Namita Telephone Internal Medicine [place], Referral/c onsult 0 Lilibeth Payne MD Telephone Family Medicine [place], Forms 0 Lilibeth Payne MD Telephone Family Medicine [place], Forms (Form for food 0 Lilibeth Payne MD stamps) Telephone Gastroenterology Bibiana, Appointment 0 MD Ioana Floorhand [facility] Chronic diastolic CHF (congestive heart failure); 0 MD Namita Hypopotassemia Pob, [facility] Lab Main Floorhand Visit Pulmonary Function Arnold, SCHILLING ( dyspnea on 0 Technologist Han Silva MD exertion) Telephone Cardiology [facility] Notification ; Rx 0 MD Namita Concern/Questio n Telephone Family Medicine [place], Forms (Brazo jae 0 Lilibeth Payne MD [facility] ) Orders Only Doctor 0 Unassigned, [place] Telephone Gastroenterology Bib[place], Refill Requ est 0 MD Ioana (pantoprazole 40 mg EC tablet ) Telephone Internal Medicine [place], Forms (Chuy sing 0 Lilibeth Payne MD Authority) Nurse Visit Anti-coagulation [place], Anticoagula tion management encounter; 0 Clinic [place] Other pulmonary embolism without acute cor pulmonale, unspecified chronicity MD Fei Nurse, [facility] Anticoag Refill Gastroenterology Bib[place], Refill Requ est 0 MD Ioana from Last 3 Months Immunizations Name Administration [...] or suspected to have Coronavirus / COVID-19? Last Filed Vital Signs Vital Sign Reading [...] Mass Index 40.18 10/11/2019 8:04 PM CDT Plan of Treatment Date Type Specialty Care Team Description 10/19/2019 Telemedicine Visit Endocrinology Diabetes & Zhen Jones MD Metabolism [address] [place] [address] [phone] 10/27/2019 Office Visit Pulmonary Disease Max Aguiar MD [address] [facility] [address] [place], [place] [address] [phone] 11/02/2019 Telemedicine Visit Internal Medicine Lilibeth Andrade MD [address] [facility] [address] [place], [place] [address] [phone] 11/30/2019 Office Visit Cardiology Practitioner, Heart Failure Nurse 12/02/2019 Appointment Cardiac Electrophysiology Outpt-Simi, Pacemaker/Icd 12/02/2019 Office Visit Oncology Lincoln Griffiths MD [address] [place], [place] [address] [phone] 12/08/2019 Office Visit Ophthalmology Yariel Tineo MD [address] [place] [address]. [place], [place] [id number] 02/08/2020 Office Visit Cardiology Robert Adkins MD [address] [facility] [id number] [place], [place] [id number] Health Maintenance Due Date Last Done Comments [...] 1980 (Not Indicated) Implants Implanted Type Area Cable Splicer Apprentice Device Shelf Model / Identifier Expiration Serial / Date Lot Prolene Mesh MESH Right: Ethicon 12/20/2020 PMSK / Implanted: Qty: 1 on 07/04/2016 by Alfonso Martinez MD at [facility] [employer] PMSK / [id number] Pacemaker PACEMAKER Stent-06/24/2016 Implanted: 06/24/2016 (Quantity not on file) Procedures Procedure Name Priority Date/Time Associated Diagnosis Comme nts POCT GLUCOSE Routine 10/12/2019 11:03 Results for this (AUTOMATED) AM CDT procedure are i n the results section. POCT GLUCOSE Routine 10/12/2019 7:31 Results for this (AUTOMATED) AM CDT procedure are i n the results section. CBC WITH DIFFERENTIAL Routine 10/12/2019 4:04 Re sults for this AM CDT procedure are i n the results section. PROTHROMBIN TIME / INR Routine 10/12/2019 4:04 R esults for this AM CDT procedure are i n the results section. BASIC METABOLIC PANEL Routine 10/12/2019 4:04 Re sults for this (NA, K, CL, CO2, AM CDT procedure a re in GLUCOSE, BUN, the results CREATININE, CA) section. CBC WITH DIFFERENTIAL Routine 10/12/2019 4:04 Re sults for this AM CDT procedure are i n the results section. TROPONIN I Routine 10/12/2019 4:04 Results [...] results section. PROTHROMBIN TIME / INR STAT 10/11/2019 4:58 Chest pain in adult Results for this PM CDT procedure are i n the results section. ACTIVATED PARTIAL STAT 10/11/2019 4:58 Chest pain in adult Results for this THRMPLAS [place] PM CDT procedure are i n the results section. TROPONIN I STAT 10/11/2019 4:58 Chest pain in adult Resu lts for this PM CDT procedure are i n the results section. HEPATIC FUNCTION PANEL STAT 10/11/2019 4:58 Chest pain in adult Results for this (55281) PM CDT procedure are i n (ALB,T.PRO,BILI the results T,BU/BC,ALT,AST,ALK section. PHOS) BASIC METABOLIC PANEL STAT 10/11/2019 4:58 Chest pain in a dult Results for this (NA, K, CL, CO2, PM CDT procedure a re in GLUCOSE, BUN, the results CREATININE, CA) section. CBC WITH DIFFERENTIAL Routine 10/11/2019 4:58 Chest pain in a dult Results for this PM CDT procedure are i n the results section. XR CHEST 1 VW COVID STAT 10/11/2019 4:24 Chest pain in donavon lt Results for this PM CDT procedure are i n the results section. EKG-12 LEAD STAT 10/11/2019 3:49 PM CDT EKG-12 LEAD Routine 10/11/2019 3:21 PM CDT CONSENT/REFUSAL FOR Routine 10/11/2019 3:09 DIAGNOSIS AND PM CDT TREATMENT [facility] [place] [facility]ine 10/11/2019 12:01 AM CDT HOSPITAL ADMISSION Routine 10/11/2019 12:01 AM CDT N-TERMINAL PRO-BNP Routine 09/16/2019 9:57 Chronic diastolic Results for this AM CDT heart failure procedure are in the results section. MAGNESIUM Routine 09/16/2019 9:57 Chronic diastolic Result s for this AM CDT heart failure procedure are in the results section. BASIC METABOLIC PANEL Routine 09/16/2019 9:57 Chronic diastol ic Results for this (NA, K, CL, CO2, AM CDT heart failure procedure are in GLUCOSE, BUN, the results CREATININE, CA) section. AGREEMENTS Routine 09/16/2019 12:01 AUTHORIZATIONS AND AM CDT IRREVOCABLE ASSIGNMENTS (FORM 2001) COMP. METABOLIC PANEL Routine 09/11/2019 9:00 Hyperkalemia Re sults for this (53547) AM CDT procedure are i n the results section. CONSENT/REFUSAL FOR Routine 09/11/2019 8:50 DIAGNOSIS AND AM CDT TREATMENT ASSIGNMENT OF BENEFITS Routine 09/11/2019 8:50 AM CDT POCT PT/INR(COAGUCHEK) Routine 09/06/2019 Anticoagulation Re sults [...] AND AM CDT IRREVOCABLE ASSIGNMENTS (FORM 2001) PACEMAKER DEVICE CHECK Routine 08/30/2019 3:00 AM CDT CONSENT TO CONTACT FOR Routine 08/27/2019 2:52 R esults for this VOLUNTARY RESEARCH PM PATIENT INTAKE COORDINATOR procedure are in the results section. MAGNESIUM Routine 08/27/2019 11:54 Chronic diastolic Result s for this AM PATIENT INTAKE COORDINATOR heart failure procedure are in the results section. N-TERMINAL PRO-BNP Routine 08/27/2019 11:54 Chronic diastolic Results for this AM PATIENT INTAKE COORDINATOR heart failure procedure are in the results section. BASIC METABOLIC PANEL Routine 08/27/2019 11:54 Chronic diastol ic Results for this (NA, K, CL, CO2, AM PATIENT INTAKE COORDINATOR heart failure procedure are in GLUCOSE, BUN, the results CREATININE, CA) section. POCT PT/INR(COAGUCHEK) Routine 08/27/2019 Anticoagulation Re sults for this management encou nter procedure are in Other pulmonary the results embolism without acute secti on. cor pulmonale, unspecified chronicity POCT GLUCOSE Routine 08/25/2019 4:17 Results for this (AUTOMATED) PM PATIENT INTAKE COORDINATOR procedure are i n the results section. BASIC METABOLIC PANEL Routine 08/25/2019 2:26 Re sults for this (NA, K, CL, CO2, PM PATIENT INTAKE COORDINATOR procedure a re in GLUCOSE, BUN, the results CREATININE, CA) section. POCT GLUCOSE Routine 08/25/2019 11:11 Results for this (AUTOMATED) AM PATIENT INTAKE COORDINATOR procedure are i n the results section. POCT GLUCOSE Routine 08/25/2019 7:35 Results for this (AUTOMATED) AM PATIENT INTAKE COORDINATOR procedure are i n the results section. CBC WITH DIFFERENTIAL Routine 08/25/2019 4:05 Re sults for this AM PATIENT INTAKE COORDINATOR procedure are i n the results section. PROTHROMBIN TIME / INR Routine 08/25/2019 4:05 R esults for this AM PATIENT INTAKE COORDINATOR procedure are i n the results section. MAGNESIUM Routine 08/25/2019 4:05 Results for this AM PATIENT INTAKE COORDINATOR procedure are i n the results section. CBC WITH DIFFERENTIAL Routine 08/25/2019 4:05 Re sults for this AM PATIENT INTAKE COORDINATOR procedure are i n the results section. BASIC METABOLIC PANEL Routine 08/25/2019 4:05 Re sults for this (NA, K, CL, CO2, AM PATIENT INTAKE COORDINATOR procedure a re in GLUCOSE, BUN, the results CREATININE, CA) section. BASIC METABOLIC PANEL STAT 08/25/2019 12:17 Re sults for this (NA, K, CL, CO2, AM PATIENT INTAKE COORDINATOR procedure a re in GLUCOSE, BUN, the results CREATININE, CA) section. POCT GLUCOSE Routine 08/24/2019 8:34 Results for this (AUTOMATED) PM PATIENT INTAKE COORDINATOR procedure are i n the results section. EKG-12 LEAD Routine 08/24/2019 3:19 PM PATIENT INTAKE COORDINATOR NOTICE OF PRIVACY Routine 08/24/2019 3:04 PRACTICES PM PATIENT INTAKE COORDINATOR CONSENT/REFUSAL FOR Routine 08/24/2019 3:03 DIAGNOSIS AND PM PATIENT INTAKE COORDINATOR TREATMENT MAGNESIUM Add-on 08/24/2019 11:12 Chronic heart failure Re sults for this AM PATIENT INTAKE COORDINATOR with preserved procedure are in ejection fraction the result s section. FACTOR 5 LEIDEN Routine 08/24/2019 11:12 Other elevated white Results for this AM PATIENT INTAKE COORDINATOR blood cell (WBC) count procedure are in Iron deficiency the results anemia, unspecified section. iron deficiency anemia type Chronic diastolic congestive heart failure Stage 2 chronic kidney disease Pulmonary embolism, unspecified chronicity, unspecified pulmonary embolism type, unspecified whether acute cor pulmonale present FACTOR 2 [id number] Routine 08/24/2019 11:12 Other elevated white Results for this MUTATION AM PATIENT INTAKE COORDINATOR blood cell (WBC) count procedure are in Iron deficiency the results anemia, unspecified section. iron deficiency anemia type Chronic diastolic congestive heart failure Stage 2 chronic kidney disease Pulmonary embolism, unspecified chronicity, unspecified pulmonary embolism type, unspecified whether acute cor pulmonale present ANTITHROMBIN ACTIVITY Routine 08/24/2019 11:12 Other elevated white Results for this AM PATIENT INTAKE COORDINATOR blood cell (WBC) count procedure are in Iron deficiency the results anemia, unspecified section. iron deficiency anemia type Chronic diastolic congestive heart failure Stage 2 chronic kidney disease Pulmonary embolism, unspecified chronicity, unspecified pulmonary embolism type, unspecified whether acute cor pulmonale present PROTEIN S ACTIVITY Routine 08/24/2019 11:12 Other elevated whi te Results for this AM PATIENT INTAKE COORDINATOR blood cell (WBC) count procedure are in Iron deficiency the results anemia, unspecified section. iron deficiency anemia type Chronic diastolic congestive heart failure Stage 2 chronic kidney disease Pulmonary embolism, unspecified chronicity, unspecified pulmonary embolism type, unspecified whether acute cor pulmonale present PROTEIN C ACTIVITY Routine 08/24/2019 11:12 Other elevated whi te Results for this AM PATIENT INTAKE COORDINATOR blood cell (WBC) count procedure are in Iron deficiency the results anemia, unspecified section. iron deficiency anemia type Chronic diastolic congestive heart failure Stage 2 chronic kidney disease Pulmonary embolism, unspecified chronicity, unspecified pulmonary embolism type, unspecified whether acute cor pulmonale present PROTEIN C ANTIGEN Routine 08/24/2019 11:12 Other elevated whit e Results for this AM PATIENT INTAKE COORDINATOR blood cell (WBC) count procedure are in Iron deficiency the results anemia, unspecified section. iron deficiency anemia type Chronic diastolic congestive heart failure Stage 2 chronic kidney disease Pulmonary embolism, unspecified chronicity, unspecified pulmonary embolism type, unspecified whether acute cor pulmonale present FACTOR 2 [id number] Routine 08/24/2019 11:12 Other elevated white Results for this MUTATION AM PATIENT INTAKE COORDINATOR blood cell (WBC) count procedure are in Iron deficiency the results anemia, unspecified section. iron deficiency anemia type Chronic diastolic congestive heart failure Stage 2 chronic kidney disease Pulmonary embolism, unspecified chronicity, unspecified pulmonary embolism type, unspecified whether acute cor pulmonale present BASIC METABOLIC PANEL Routine 08/24/2019 11:12 Chronic heart f ailure Results for this (NA, K, CL, CO2, AM PATIENT INTAKE COORDINATOR with preserved procedure are in GLUCOSE, BUN, ejection fraction the resul ts CREATININE, CA) section. HOSPITAL ADMISSION Routine 08/24/2019 12:01 AM PATIENT INTAKE COORDINATOR AUTHORIZATION FOR Routine 08/24/2019 12:01 RELEASE OF PHI AM PATIENT INTAKE COORDINATOR PATIENT QUESTIONNAIRE Routine 08/24/2019 12:01 AM PATIENT INTAKE COORDINATOR AUTHORIZATION FOR Routine 08/23/2019 12:01 RELEASE OF PHI AM PATIENT INTAKE COORDINATOR POCT GLUCOSE Routine 08/19/2019 10:56 Results for this (AUTOMATED) AM PATIENT INTAKE COORDINATOR procedure are i n the results section. POCT GLUCOSE Routine 08/19/2019 7:12 Results for this (AUTOMATED) AM PATIENT INTAKE COORDINATOR procedure are i n the results section. MAGNESIUM Routine 08/19/2019 3:21 Results for this AM PATIENT INTAKE COORDINATOR procedure are i n the results section. N-TERMINAL PRO-BNP Routine 08/19/2019 3:21 Resul ts for this AM PATIENT INTAKE COORDINATOR procedure are i n the results section. PROTHROMBIN TIME / INR Routine 08/19/2019 3:21 R esults for this AM PATIENT INTAKE COORDINATOR procedure are i n the results section. BASIC METABOLIC PANEL Routine 08/19/2019 3:21 Re sults for this (NA, K, CL, CO2, AM PATIENT INTAKE COORDINATOR procedure a re in GLUCOSE, BUN, the results CREATININE, CA) section. POCT GLUCOSE Routine 08/18/2019 7:29 Results for this (AUTOMATED) PM PATIENT INTAKE COORDINATOR procedure are i n the results section. POCT GLUCOSE Routine 08/18/2019 4:17 Results for this (AUTOMATED) PM PATIENT INTAKE COORDINATOR procedure are i n the results section. BASIC METABOLIC PANEL Routine 08/18/2019 2:39 Re sults for this (NA, K, CL, CO2, PM PATIENT INTAKE COORDINATOR procedure a re in GLUCOSE, BUN, the results CREATININE, CA) section. BASIC METABOLIC PANEL Routine 08/18/2019 11:37 Re sults for this (NA, K, CL, CO2, AM PATIENT INTAKE COORDINATOR procedure a re in GLUCOSE, BUN, the results CREATININE, CA) section. POCT GLUCOSE Routine 08/18/2019 11:11 Results for this (AUTOMATED) AM PATIENT INTAKE COORDINATOR procedure are i n the results section. POCT GLUCOSE Routine 08/18/2019 7:32 Results for this (AUTOMATED) AM PATIENT INTAKE COORDINATOR procedure are i n the results section. N-TERMINAL PRO-BNP Add-on 08/18/2019 3:33 Resul ts for this AM PATIENT INTAKE COORDINATOR procedure are i n the results section. MAGNESIUM Routine 08/18/2019 3:33 Results for this AM PATIENT INTAKE COORDINATOR procedure are i n the results section. PROTHROMBIN TIME / INR Routine 08/18/2019 3:33 R esults for this AM PATIENT INTAKE COORDINATOR procedure are i n the results section. CBC WITH DIFFERENTIAL Routine 08/18/2019 3:33 Re sults for this AM PATIENT INTAKE COORDINATOR procedure are i n the results section. BASIC METABOLIC PANEL Routine 08/18/2019 3:33 Re sults for this (NA, K, CL, CO2, AM PATIENT INTAKE COORDINATOR procedure a re in GLUCOSE, BUN, the results CREATININE, CA) section. CBC WITH DIFFERENTIAL Routine 08/18/2019 3:33 Re sults for this AM PATIENT INTAKE COORDINATOR procedure are i n the results section. POCT GLUCOSE Routine 08/17/2019 8:22 Results for this (AUTOMATED) PM PATIENT INTAKE COORDINATOR procedure are i n the results section. POCT GLUCOSE Routine 08/17/2019 5:51 Results for this (AUTOMATED) PM PATIENT INTAKE COORDINATOR procedure are i n the results section. PROTHROMBIN TIME / INR STAT 08/17/2019 4:41 Hypokalemia R esults for this PM PATIENT INTAKE COORDINATOR procedure are i n the results section. EKG-12 LEAD Routine 08/17/2019 4:16 PM PATIENT INTAKE COORDINATOR GLYCOSYLATED Add-on 08/17/2019 4:06 Results for this HEMOGLOBIN (A1C) PM PATIENT INTAKE COORDINATOR procedure a re in the results section. CBC WITH DIFFERENTIAL STAT 08/17/2019 4:06 Hypokalemia Re sults for this PM PATIENT INTAKE COORDINATOR procedure are i n the results section. COMP. METABOLIC PANEL STAT 08/17/2019 4:06 Hypokalemia Re sults for this (52653) PM PATIENT INTAKE COORDINATOR procedure are i n the results section. MAGNESIUM STAT 08/17/2019 4:06 Hypokalemia Results for this PM PATIENT INTAKE COORDINATOR procedure are i n the results section. CBC WITH DIFFERENTIAL STAT 08/17/2019 4:06 Hypokalemia Re sults for this PM PATIENT INTAKE COORDINATOR procedure are i n the results section. EKG-12 LEAD Routine 08/17/2019 3:59 PM PATIENT INTAKE COORDINATOR CONSENT/REFUSAL FOR Routine 08/17/2019 3:28 DIAGNOSIS AND PM PATIENT INTAKE COORDINATOR TREATMENT BASIC METABOLIC PANEL Routine 08/17/2019 8:16 Chronic heart f ailure Results for this (NA, K, CL, CO2, AM PATIENT INTAKE COORDINATOR with preserved procedure are in GLUCOSE, BUN, ejection fraction the resul ts CREATININE, CA) section. HOSPITAL ADM - MISC Routine 08/17/2019 12:01 AM PATIENT INTAKE COORDINATOR HOSPITAL ADMISSION Routine 08/17/2019 12:01 AM PATIENT INTAKE COORDINATOR AGREEMENTS Routine 08/17/2019 12:01 AUTHORIZATIONS AND AM PATIENT INTAKE COORDINATOR IRREVOCABLE ASSIGNMENTS (FORM 2001) POCT PT/INR(COAGUCHEK) Routine 08/13/2019 Other pulmonary Re sults for this embolism without acute proce dure are in cor pulmonale, the results unspecified chronicity secti on. BASIC METABOLIC PANEL Routine 08/10/2019 8:47 Chronic heart f ailure Results for this (NA, K, CL, CO2, AM PATIENT INTAKE COORDINATOR with preserved procedure are in GLUCOSE, BUN, ejection fraction the resul ts CREATININE, CA) section. AGREEMENTS Routine 08/10/2019 12:01 AUTHORIZATIONS AND AM PATIENT INTAKE COORDINATOR IRREVOCABLE ASSIGNMENTS (FORM 2001) TROPONIN I STAT 08/08/2019 5:34 Chest pain, Results for this PM PATIENT INTAKE COORDINATOR unspecified type procedure a re in the results section. PROTHROMBIN TIME / INR STAT 08/08/2019 4:32 Chest pain, R esults for this PM PATIENT INTAKE COORDINATOR unspecified type procedure a re in the results section. EKG-12 LEAD Routine 08/08/2019 3:27 PM PATIENT INTAKE COORDINATOR CBC WITH DIFFERENTIAL STAT 08/08/2019 3:21 Chest pain, Re sults for this PM PATIENT INTAKE COORDINATOR unspecified type procedure a re in the results section. N-TERMINAL PRO-BNP STAT 08/08/2019 3:21 Chest pain, Resul ts for this PM PATIENT INTAKE COORDINATOR unspecified type procedure a re in the results section. TROPONIN I STAT 08/08/2019 3:21 Chest pain, Results for this PM PATIENT INTAKE COORDINATOR unspecified type procedure a re in the results section. COMP. METABOLIC PANEL STAT 08/08/2019 3:21 Chest pain, Re sults for this (60840) PM PATIENT INTAKE COORDINATOR unspecified type procedure a re in the results section. CBC WITH DIFFERENTIAL STAT 08/08/2019 3:21 Chest pain, Re sults for this PM PATIENT INTAKE COORDINATOR unspecified type procedure a re in the results section. XR CHEST 2 VW STAT 08/08/2019 3:13 Chest pain, Results fo r this PM PATIENT INTAKE COORDINATOR unspecified type procedure a re in the results section. EKG-12 LEAD Routine 08/08/2019 2:55 PM PATIENT INTAKE COORDINATOR CONSENT/REFUSAL FOR Routine 08/08/2019 2:18 DIAGNOSIS AND PM PATIENT INTAKE COORDINATOR TREATMENT EMERGENCY SERVICES Routine 08/08/2019 12:01 AGREEMENTS AND AM PATIENT INTAKE COORDINATOR AUTHORIZATIONS BASIC METABOLIC PANEL Routine 08/06/2019 8:50 Chronic heart f ailure Results for this (NA, K, CL, CO2, AM PATIENT INTAKE COORDINATOR with preserved procedure are in GLUCOSE, BUN, ejection fraction the resul ts CREATININE, CA) section. AGREEMENTS Routine 08/06/2019 12:01 AUTHORIZATIONS AND AM PATIENT INTAKE COORDINATOR IRREVOCABLE ASSIGNMENTS (FORM 2000) EKG-12 LEAD Routine 08/05/2019 3:01 PM PATIENT INTAKE COORDINATOR CBC WITH DIFFERENTIAL STAT 08/05/2019 2:46 Hypokalemia Re sults for this PM PATIENT INTAKE COORDINATOR procedure are i n the results section. TROPONIN I STAT 08/05/2019 2:46 Hypokalemia Results for this PM PATIENT INTAKE COORDINATOR procedure are i n the results section. MAGNESIUM STAT 08/05/2019 2:46 Hypokalemia Results for this PM PATIENT INTAKE COORDINATOR procedure are i n the results section. LIPASE STAT 08/05/2019 2:46 Hypokalemia Results for this PM PATIENT INTAKE COORDINATOR procedure are i n the results section. COMP. METABOLIC PANEL STAT 08/05/2019 2:46 Hypokalemia Re sults for this (41128) PM PATIENT INTAKE COORDINATOR procedure are i n the results section. CBC WITH DIFFERENTIAL STAT 08/05/2019 2:46 Hypokalemia Re sults for this PM PATIENT INTAKE COORDINATOR procedure are i n the results section. EKG-12 LEAD LIVIA 08/05/2019 2:06 PM PATIENT INTAKE COORDINATOR CONSENT/REFUSAL FOR Routine 08/05/2019 1:26 DIAGNOSIS AND PM PATIENT INTAKE COORDINATOR TREATMENT BASIC METABOLIC PANEL Routine 08/05/2019 9:21 Chronic heart f ailure Results for this (NA, K, CL, CO2, AM PATIENT INTAKE COORDINATOR with preserved procedure are in GLUCOSE, BUN, ejection fraction the resul ts CREATININE, CA) section. AGREEMENTS Routine 08/05/2019 12:01 AUTHORIZATIONS AND AM PATIENT INTAKE COORDINATOR IRREVOCABLE ASSIGNMENTS (FORM 2000) EMERGENCY SERVICES Routine 08/05/2019 12:01 AGREEMENTS AND AM PATIENT INTAKE COORDINATOR AUTHORIZATIONS PULMONARY FUNCTION Routine 07/22/2019 10:13 Resul ts for this TEST (RESULTS) AM PATIENT INTAKE COORDINATOR procedure are in the results section. BASIC METABOLIC PANEL LIVIA 07/22/2019 10:05 Hypopotassemia Results for this (NA, K, CL, CO2, AM PATIENT INTAKE COORDINATOR procedure a re in GLUCOSE, BUN, the results CREATININE, CA) section. CONSENT/REFUSAL FOR Routine 07/22/2019 9:16 DIAGNOSIS AND AM PATIENT INTAKE COORDINATOR TREATMENT ASSIGNMENT OF BENEFITS Routine 07/22/2019 9:16 AM PATIENT INTAKE COORDINATOR POCT PT/INR(COAGUCHEK) Routine 07/16/2019 Other pulmonary Re sults for this embolism without acute proce dure are in cor pulmonale, the results unspecified chronicity secti on. from Last 3 Months Results POCT GLUCOSE (AUTOMATED) (10/12/2019 11:03 AM CDT)Only the most recent of14 resultswithin the time period is included. Pathologist Sig [employer] POCT GLU 170 (H) 70 - 110 mg/dL [facility] Specimen Blood Performing Organization Address City/State/Zipcode Phone Number [facility] CLIA: [id number], [address] [place], [place] [address] CBC WITH DIFFERENTIAL (10/12/2019 4:04 AM CDT)Only the most recent of7 results within the time period is included. Pathologist Sig [employer] WBC 12.19 (H) 4.20 - 10.70 [facility] 10*3/L [facility] RBC 5.05 4.26 - 5.52 [facility] 10*6/L [facility] HGB 12.4 12.2 - 16.4 [facility] g/dL [facility] HCT 37.2 (L) 38.4 - 49.3 % [facility] MCV 73.7 (L) 81.7 - 95.6 fL [facility] MCH 24.6 (L) 26.1 - 32.7 pg [facility] MCHC 33.3 31.2 - 35.0 [facility] g/dL [facility] RDW-SD 44.4 38.5 - 51.6 fL [facility] RDW-CV 16.8 (H) 12.1 - 15.4 % [facility] PLT 291 150 - 328 [facility] 10*3/L [facility] MPV 9.4 (L) 9.8 - 13.0 fL [facility] NRBC/100 WBC 0.0 0.0 - 10.0 /100 [facility] WBCs [facility] NRBC x10^3 <0.01 10*3/L [facility] GRAN MAT (NEUT) % 69.9 % [facility] IMM GRAN % 0.60 % [facility] LYMPH % 20.2 % [facility] MONO % 7.9 % [facility] EOS % 1.0 % [facility] BASO % 0.4 % [facility] GRAN MAT x10^3(ANC) 8.53 (H) 1.99 - 6.95 [facility] 10*3/uL [facility] IMM GRAN x10^3 0.07 (H) 0.00 - 0.06 [facility] 10*3/uL [facility] LYMPH x10^3 2.46 1.09 - 3.23 [facility] 10*3/uL HOSPITAL [facility] MONO x10^3 0.96 0.36 - 1.02 [facility] 10*3/uL [facility] EOS x10^3 0.12 0.06 - 0.53 [facility] 10*3/uL HOSPITAL [facility] BASO x10^3 0.05 0.01 - 0.09 [facility] 10*3/uL [facility] Specimen Blood - ARM, RIGHT Performing Organization Address City/State/Zipcode Phone Number [facility] CLIA: [id number], [address] [place], [place] [address] PROTHROMBIN TIME / INR (10/12/2019 4:04 AM CDT)Only the most recent of7 results within the time period is included. PROTIME PATIENT 26.5 (H) 12.0 - 14.7 [facility] LABORATORY INR 2.6Comment: Normal [facility] INR <1.1; Warfarin [facility] Therapeutic range LABORATORY 2.0 to 3.0 or 2.5 to 3.5, depending upon the indications. Specimen Blood - ARM, RIGHT Performing Organization Address City/State/Zipcode Phone Number [facility] CLIA: [id number], [address] [place] [address] BASIC METABOLIC PANEL (NA, K, CL, CO2, GLUCOSE, BUN, CREATININE, CA) (10/12/2019 4:04 AM CDT)Only the most recent of18 resultswithin the time period is included. NA 137 135 - 145 [facility] mmol/L [facility] K 3.5 3.5 - 5.0 [facility] mmol/L [facility] CL 100 98 - 108 mmol/L [facility] CO2 TOTAL 32 (H) 23 - 31 mmol/L [facility] AGAP 5 2 - 16 [facility] BUN 18 7 - 23 mg/dL [facility] GLUCOSE 121 (H) 70 - 110 mg/dL [facility] CREATININE 1.27 (H) 0.60 - 1.25 [facility] mg/dL [facility] CALCIUM 9.6 8.6 - 10.6 [facility] mg/dL [facility] eGFR Calculation 60.0 mL/min/1.73m2 [facility] ([facility] LABORATORY [place]ese) eGFR Calculation 72.8 mL/min/1.73m2 [facility] () [facility] Specimen Blood - ARM, RIGHT Narrative Performed At Association of Glomerular Filtration Rate (GFR) [facility] and Staging of Kidney Disease* [...] abnormalities in imaging tests). Performing Organization Address [facility]/Zipcode Phone Number [facility] CLIA: [id number], [address] [place], [place] [address] TROPONIN I (10/12/2019 4:04 AM CDT)Only the most recent of6 resultswithin the time period is included. Pathologist Sig nature TROPONIN I <0.012 <=0.034 ng/mL [facility] Specimen Blood - ARM, RIGHT Narrative Performed At Equal or Less than 0.034 ng/ml---Normal [facility] Note: Cardiac troponin begins [...] patient's use of biotin. Performing Organization Address [facility]/Zipcode Phone Number [facility] CLIA: [id number], [address] [place], [place] [address] [address] [facility] CORONAVIRUS COVID-19 TESTING (10/11/2019 4:58 PM CDT) Pathologist [facility] SARS-CoV-2 Not Detected Not Detected [facility] Specimen Swab - NASOPHARYNGEAL SWAB Narrative Performed At ID NOW COVID-19 Assay is an isothermal nucleic [facility] acid amplification test intended for the qualitative detection of nucleic acid from SARS-CoV-2 viral RNA in nasopharyngeal (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) specimens. It is used under Emergency Use [...] testing if clinically indicated. Performing Organization Address [facility] Phone Number [facility] CLIA: [id number], [address] [place], [place] [address] N-TERMINAL PRO-BNP (10/11/2019 4:58 PM CDT)Only the most recent of7 results within the time period is included. Pathologist Sig nature NT-proBNP 32 <=125 pg/mL [facility] Specimen Blood - ARM, RIGHT Narrative Performed At [facility] has been reported to cause a negative [facility] bias, interpret results relative to patient's use of biotin. Performing Organization Address [facility] Phone Number [facility] CLIA: [id number], [address] [place] [address] aPTT (10/11/2019 4:58 PM CDT) Pathologist Sig nature APTT Patient 51 (H) 23 - 38 Seconds [facility] Specimen Blood - ARM, RIGHT Narrative Performed At The [facility] patient population mean normal value [facility] for aPTT is 30 seconds. Performing Organization Address [facility] Phone Number [facility] CLIA: [id number], [address] [place] [address] Hepatic Function Panel (ALB, T.PRO, BILI T, BU/BC, ALT, AST, ALK PHOS) (10/11/2019 4:58 PM CDT) Pathologist Sig nature TOTAL BILI 0.5 0.1 - 1.1 mg/dL [facility] BILI UNCON 0.5 0.1 - 1.1 mg/dL [facility] BILI CONJ 0.0 0.0 - 0.3 mg/dL [facility] T PROTEIN 8.2 6.3 - 8.2 g/dL [facility] ALBUMIN 4.3 3.5 - 5.0 g/dL [facility] ALK PHOS 118 34 - 122 U/L [facility] ALTv 33 5 - 50 U/L [facility] AST(SGOT) 26 13 - 40 U/L [facility] Specimen Blood - ARM, RIGHT Performing Organization Address City/State/Zipcode Phone Number [facility] CLIA: [id number], [address] [place], [place] [address] XR CHEST 1 VW COVID (10/11/2019 4:24 PM CDT) Specimen Impressions Performed [...] Control (CDC) and recent statement of the [employer] [employer], viral testing remai ns the only specific method of diagnosis. Confirmation with the viral test is required, even if radiologic findings are suggestive of CO VID-[address]. Preliminary Report Dictated by Resident: Jhony Barba I, Kathi Last MD., have reviewed this [...] trol (CDC) and recent statement of the [place], viral testing remains the only specific method of diagnosis. Confirmation with t he viral test is required, even if radiologic findings are suggestive of CO VID-[address] Preliminary Report Dictated by Resident: Jhony Barba I, Kathi Last MD., have reviewed this study and agree with the above report. Performing Organization Address [facility]/State/Zipcode Phone Number PACS/VR/DOSE EKG-12 LEAD (10/11/2019 3:21 PM CDT) Specimen Performing Organization Address [facility] Mex[facility]ode Phone Number HST CONSENT/REFUSAL FOR DIAGNOSIS AND TREATMENT (10/11/2019 3:09 PM CDT)Only the most recent of7 resultswithin the time period is included. Specimen Performing Organization Address [facility]/State/Zipcode Phone Number [facility] HOSPITAL ADMISSION (10/11/2019 12:01 AM CDT)Only the most recent of3 results within the time period is included. Specimen Performing Organization Address [facility]/Zipcode Phone Number [facility] HOSPITAL ADM - MISC (10/11/2019 12:01 AM CDT)Only the most recent of2 results within the time period is included. Specimen Performing Organization Address [facility] Phone Number [facility] MAGNESIUM (09/16/2019 9:57 AM CDT)Only the most recent of9 resultswithin the time period is included. Pathologist Sig nature MAGNESIUM 2.1 1.7 - 2.4 mg/dL [facility] Specimen Blood Performing Organization Address [facility] Mex[facility] Phone Number [facility] CLIA: [id number], [address] [place], [place] [address] AGREEMENTS AUTHORIZATIONS AND IRREVOCABLE ASSIGNMENTS (FORM 2000) (09/16/2019 12:01 AM CDT)Only the most recent of6 resultswithin the time period is included. Specimen Performing Organization Address [facility]/Zipcode Phone Number HIM COMP. METABOLIC PANEL ([id number]) (09/11/2019 9:00 AM CDT)Only the most recent of4 resultswithin the time period is included. Pathologist Sig nature NA 135 135 - 145 [facility] mmol/L [facility] K 3.2 (L) 3.5 - 5.0 [facility] mmol/L [facility] CL 89 (L) 98 - 108 mmol/L [facility] CO2 TOTAL 37 (H) 23 - 31 mmol/L [facility] AGAP 9 2 - 16 [facility] BUN 21 7 - 23 mg/dL [facility] GLUCOSE 227 (H) 70 - 110 mg/dL [facility] CREATININE 1.12 0.60 - 1.25 [facility] mg/dL [facility] TOTAL BILI 0.4 0.1 - 1.1 mg/dL [facility] CALCIUM 9.8 8.6 - 10.6 [facility] mg/dL [facility] T PROTEIN 7.4 6.3 - 8.2 g/dL [facility] ALBUMIN 4.1 3.5 - 5.0 g/dL [facility] ALK PHOS 128 (H) 34 - 122 U/L [facility] ALTv 22 5 - 50 U/L [facility] AST(SGOT) 23 13 - 40 U/L [facility] eGFR Calculation 69.4 mL/min/1.73m2 [facility] [place]) eGFR Calculation 84.1 mL/min/1.73m2 [facility] ([facility]) [facility] Specimen Blood Narrative Performed At Association of Glomerular Filtration Rate (GFR) [facility] and Staging of Kidney Disease* [...] tests). Performing Organization Address City/State/Zipcode Phone Number [facility] CLIA: [id number], [address] [place], [place] [address] ASSIGNMENT OF BENEFITS (09/11/2019 8:50 AM CDT)Only the most recent of2 results within the time period is included. Specimen Performing Organization Address [facility] Mex[facility] Phone Number HIM POCT PT/INR(COAGUCHEK) (09/06/2019)Only the most recent of4 resultswithin the time period is included. Pathologist Sig nature POCT PT/INR 2.3 (A) 0.8 - 1.4 INR POCT PT/SEC 27.0 SEC Specimen Blood - CAPILLARY PACEMAKER DEVICE CHECK (08/30/2019 3:00 AM CDT) Specimen Performing Organization Address [facility] Phone Number EP CONSENT TO CONTACT FOR VOLUNTARY RESEARCH (08/27/2019 2:52 PM PATIENT INTAKE COORDINATOR) Pathologist Sig nature Consent To Contact For Voluntary Yes HIM Research Specimen Performing Organization Address [facility] Mex[facility]ode Phone Number HIM EKG-12 LEAD (08/24/2019 3:19 PM PATIENT INTAKE COORDINATOR) Specimen Performing Organization Address [facility] Phone Number HST NOTICE OF PRIVACY PRACTICES (08/24/2019 3:04 PM PATIENT INTAKE COORDINATOR) Specimen Performing Organization Address [facility] Mex[facility]ode Phone Number HIM PROTEIN S ACTIVITY (08/24/2019 11:12 AM PATIENT INTAKE COORDINATOR) Pathologist Sig nature PROTEIN S ACTIVITY 79 64 - 149 % [facility] SERVIC ES Specimen Blood - ARM, LEFT Narrative Performed At Age and hormonal status may affect the normal range fo r [facility] females (particularly during ). Test should n ot be ordered in patients on Coumadin as it can decrease Pro tein C and S levels. Additional studies should be conducted t o determine the source of unexpected abnormal results. Performing Organization Address City/State/Zipcode Phone Number [facility] CLIA: [id number], [address] [place] [phone] [facility] PROTEIN C ACTIVITY (08/24/2019 11:12 AM PATIENT INTAKE COORDINATOR) Pathologist Sig nature PROTEIN C ACTIVITY 52 (L) 70 - 140 % [facility] Specimen Blood - ARM, LEFT Narrative Performed At Test should not be ordered in patients on Coumadin as it can [facility] decrease Protein C and S levels. Protein C activity is low in neonates and infants and increases to adult levels during adolescence. Additional studies should be conducted to determine the source of unexpected abnormal results. Performing Organization Address City/State/Zipcode Phone Number [facility] CLIA: [id number], [address] [place] [address] [facility] ANTITHROMBIN ACTIVITY (08/24/2019 11:12 AM PATIENT INTAKE COORDINATOR) Pathologist Sig nature ANTITHROMBIN ACTIVITY 99 83 - 128 % [facility] SER VICES Specimen Blood - ARM, LEFT Performing Organization Address City/State/Zipcode Phone Number [facility] CLIA: [id number], [address] [place] [address] [facility] FACTOR 2 [id number] MUTATION (08/24/2019 11:12 AM PATIENT INTAKE COORDINATOR) Pathologist Sig nature Factor 2 [id number] Normal Normal [facility] Mutation [...] further increased for homozygotes. Mutation Tested: F2 [id number].74251Z>A ([id number]) . Clinical Sensitivity for Venous Thrombosis: Approximat jojo 10%. Methodology: Polymerase chain reaction and fluorescenc e monitoring Limitations: The performance of this assay has not bee n evaluated with samples from pediatric pa tients. Counseling and informed consent are recommended for [facility] testing. References: OMIM: [id number] https://ghr.nlm.nih.gov/condition/prothr ombin-thrombophilia Performing Organization Address City/[facility]/Zipcode Phone Number [facility] CLIA: [id number], [address] [place] [address] [facility] FACTOR 5 LEIDEN (08/24/2019 11:12 AM PATIENT INTAKE COORDINATOR) Pathologist Sig nature FACTOR 5 LEIDEN Normal Normal [facility] Factor 5 Leide n mutation is c.1601G>A ([id number]). Methodology: Polymerase chain reaction and fluorescenc e monitoring. Limitations: Rare Factor V mutations ([id number], [id number], and [id number]) and any additional SNPs in the probe binding r egion may interfere with the target detection and yield an I NVALID result. The performance of this assay has not been bret luated with samples from pediatric patients. Counseling and informed consent are recommended for [facility] testing. References: OMIM: [id number] https://ghr.nlm.nih.gov/condition/rlejiu-a-favknm-thro mbophi abby Performing Organization Address City/State/Zipcode Phone Number [facility] CLIA: [id number], [address] [place], [place] [address] [facility] PROTEIN C ANTIGEN (08/24/2019 11:12 AM PATIENT INTAKE COORDINATOR) Protein C See scanned ANTIPHOSPHOLIPID (Antigen) report [facility]. Specimen Blood - ARM, LEFT Narrative Performed At This result has an attachment that is no t available. Performing Organization Address City/[facility]/Zipcode Phone Number ANTIPHOSPHOLIPID [address] [place], [place] [phone] [phone] STANDARDIZATION LABORAT. 4.[address] [facility]. AUTHORIZATION FOR RELEASE OF PHI (08/24/2019 12:01 AM PATIENT INTAKE COORDINATOR)Only the most recent of2 resultswithin the time period is included. Specimen Performing Organization Address City/[facility] Phone Number HIM PATIENT QUESTIONNAIRE (08/24/2019 12:01 AM PATIENT INTAKE COORDINATOR) Specimen Performing Organization Address [facility] Phone Number HIM EKG-12 LEAD (08/17/2019 4:16 PM PATIENT INTAKE COORDINATOR) Specimen Performing Organization Address [facility] Phone Number HST GLYCOSYLATED HEMOGLOBIN (A1C) (08/17/2019 4:06 PM PATIENT INTAKE COORDINATOR) Pathologist Sig nature HGB A1C 7.8 (H) 4.0 - 6.0 % NGSP [facility] L LABORATORY Specimen Blood - VENOUS Narrative Performed At %A1C (NGSP) Interpretation (ADA) [facility] LABORATORY 4.8-5.6 Normal or (Non-Diabetic Ra nge) 5.7-6.4 Increased Risk (Pre-Diabet ic) >6.5 Diabetes Indicated Performing Organization Address [facility] Phone Number [facility] CLIA: [id number], [address] [place], [place] [address] EKG-12 LEAD (08/08/2019 3:27 PM PATIENT INTAKE COORDINATOR) Specimen Performing Organization Address [facility] Phone Number HST XR CHEST 2 VW (08/08/2019 3:13 PM PATIENT INTAKE COORDINATOR) Specimen Impressions Performed At No acute cardiopulmonary disease PACS/VR/DOSE RL: 501 AFC: [id number] End of report 3 :27 PM Narrative [...] Results Inft User - 2019 3:28 PM PATIENT INTAKE COORDINATOR ORDERING CLINICIAN: HAIDER MELVIN TECHNIQUE: 2 views [...] No acute cardiopulmonary disease RL: 501 AFC: [id number] End of report Performing Organization Address [facility]/State/Zipcode Phone Number PACS/VR/DOSE EMERGENCY SERVICES AGREEMENTS AND AUTHORIZATIONS (08/08/2019 12:01 AM PATIENT INTAKE COORDINATOR)Only the most recent of2 resultswithin the time period is included. Specimen Performing Organization Address [facility] Phone Number HIM EKG-12 LEAD (08/05/2019 3:01 PM PATIENT INTAKE COORDINATOR) Specimen Performing Organization Address [facility] Phone Number HST LIPASE (08/05/2019 2:46 PM PATIENT INTAKE COORDINATOR) Pathologist Sig nature LIPASE 30 0 - 220 U/L [facility] LABORATORY Specimen Blood - VENOUS Performing Organization Address [facility] Phone Number [facility] CLIA: [id number], [address] [place], [place] [address] PULMONARY FUNCTION TEST (RESULTS) (07/22/2019 10:13 AM PATIENT INTAKE COORDINATOR) Pathologist Sig nature FVC Actual 3.67 L PFT FEV1 Actual 3.15 L PFT FEV1/FVC Actual 86 % PFT Specimen Performing Organization Address [facility]/Zipcode Phone Number PFT from Last 3 Months Insurance Payer Benefit Plan / Subscriber ID Effective Phone Address T ype Group Dates [employer] [id number] 2017-Lux [phone] [address] [employer] HE[facility] CHOICE nt [phone] [place] [address] Advance Directives Name Relationship Healthcare Agent Communication Relationship Keaton Nelson Spouse Primary healthcare agent Elisabeth Soliz Sibling [facility] healthcare [phone] [phone] agent (Mobile)
--- OUTSIDE RECORDS SUMMARY | 2019-11-07 22:54 | XMS REPORT | Summary of Care ---
:1970 Author Organization [facility] - [facility] Address [address] [place] [id number] Care Team Providers Name Role Phone Elmer Andrade MD Primary Care Provider NAVJOT Espinoza Unavailable Unavailable MD Rocco Unavailable Mary Quezada MD Unavailable Genna Anand NUT PROCESS HELPER Unavailable Unavailable MD Casimiro Unavailable Ricardo Rodriguez DO Appointment Coordinator Reason for Referral Radiology Services (LIVIA) Status Reason Specialty Diagnoses / Referred By Referred To Procedures Contact Contact New Request Diagnostic Diagnoses Chest pain, unspecified type Anderson, K Radiology Procedures XR CHEST 1 VW COVID XR CHEST 1 VW Diana, PAC [address] [place] [phone] Reason for Visit Reason Comments Chest Pain Auth/Cert Status Reason Specialty Diagnoses / Referred By Referred To Procedures Contact Contact Emergency Medicine Adc Em ergency Dept [address] [facility] [place] [address] Fax: Encounter Details Date Type Department Care Team Description 10/26/2019 Emergency ADC-Emergency Anderson, K Diana, Chest pain , unspecified Department PAC type (Primary Dx) [address] [place] [address] [place] [address] [address] [address] [place] [address] Allergies Active Allergy Reactions Severity Noted Date [...] as of this encounter (statuses as of 10/26/2019) Medications Medication Sig Dispensed Refills Start Date [...] for Nausea Hyperglycemia and Vomiting (N/V). Insulin [place], Disposable, Use as directed, 1x 100 Each 1 0 06/25/2019 Active (RELION PEN NEEDLES) 32 daily, DX:E11.9 gauge x 5/32" Ndle metOLazone 2.5 mg [...] 4 10/08/2019 Active 2 (two) times daily. desvenlafaxine succinate Take 2 tablets by mouth 60 tablet 2 0 10/14/2019 Active (PRISTIQ) 100 mg 24 hr daily. tabletIndications: Severe episode of recurrent major depressive disorder, without psychotic features, Generalized anxiety disorder Insulin Glargine (LANTUS inject 14 Units under 15 mL 1 Active SOLOSTAR U-100 INSULIN) 100 the skin daily. 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 [place] (myocardial infarction) 06/12/2016 Type 2 diabetes mellitus without complication 06/12/20 16 Essential hypertension 06/12/2016 History of alcohol abuse Overview: Sober for 16 years documented as of this encounter (statuses as of 10/26/2019) Resolved Problems Problem Noted Date Resolved Date Chest pain radiating to arm 08/08/2016 08/19/2016 Abdominal pain 07/19/2016 08/19/2016 History of epidural anesthesia 07/04/2016 7 Morbid obesity with body mass index of 50 or higher 06/26/19 17 08/19/2016 Obesity (BMI 30-39.9) 06/12/2016 08/19/2016 documented as of this encounter (statuses as of 10/26/2019) Immunizations Name Administration Dates Next Due Td [...] been in contact with No / Unsure 10/26/2019 6:21 PM CDT someone who was confirmed or suspected to have Coronavirus / COVID-19? documented as of this encounter Last Filed Vital Signs Vital Sign Reading Time Taken Comments Blood Pressure 114/81 10/26/2019 10:00 PM CDT Pulse 77 10/26/2019 10:00 PM CDT Temperature 36.8 C (98.3 F) 10/26/2019 6:23 PM CDT Respiratory Rate 10 10/26/2019 10:00 PM CDT Oxygen Saturation 94% 10/26/2019 10:00 PM CDT Inhaled Oxygen Concentration - - Weight 128.4 kg (283 lb) 10/26/2019 6:23 PM CDT Height 177.8 cm (5' 10") 10/26/2019 6:23 PM CDT Body Mass Index 40.61 10/26/2019 6:23 PM CDT documented in this encounter Discharge Instructions AttachmentsThe following attachments cannot be sent through Care Everywhere. Chest Pain, Uncertain Cause (Irish)Anxiety, Your Body's Response to (Irish) documented in this encounter Plan of Treatment Date Type Specialty Care Team Description 10/27/2019 Office Visit Pulmonary Disease Max Aguiar MD [address] [facility] [address] [address] [phone] 11/02/2019 Telemedicine Visit Internal Medicine Lilibeth Andrade MD [address] [place] [address] [address] [place], [place] [address] [phone] 11/08/2019 Nurse Visit Anti-coagulation Clinic Nurse, Vtc Anticoag 11/11/2019 Telemedicine Visit Psychiatry Mendez Martinez MD [address] [place] [phone] 11/30/2019 Office Visit Cardiology Practitioner, Heart Failure Nurse 12/02/2019 Appointment Cardiac Electrophysiology Ho Shukla MD [address] [place], [place] [phone] Outpt-Simi, Pacemaker/Icd 12/02/2019 Office Visit Oncology Lincoln Griffiths MD [address] [place], [place] [address] [phone] 12/08/2019 Office Visit Ophthalmology Yariel Tineo MD [address] [place], [place] [address]. [place], [place] [phone] 02/08/2020 Office Visit Cardiology Robert Adkins MD [address] [facility] [id number] [place], [place] [phone] 02/22/2020 Office Visit Endocrinology Diabetes & Jones, Tre rodriguez MD Metabolism [address] [place], [place] [phone] Health Maintenance Due Date Last Done Comments EYE EXAM 11/20/2019 11/19/2018, 11/13/2017 URINE MICROALBUMIN 02/07/2020 02/06/2019, 01/19/2018, 08/20/2016 HgA1C 02/15/2020 08/17/2019, 07/07/2019, 05/02/2019, Additional history exists PNEUMOCOCCAL 0-64 YEARS 02/24/2020 Postpone d from COMBINED SERIES (1 of 1 - 1974 (Refused) PPSV23) FOOT EXAM 02/25/2020 02/24/2019, 02/24/2019, 09/22/2018, Additional history exists INFLUENZA VACCINE (Season 03/03/2020 Postpo joce from Ended) 02/22/2020 (Refu sed) LDL-C 05/02/2020 05/02/2019, 07/28/2018, 01/11/2018, Additional history exists Zoster Recombinant Vaccine 05/13/2020 Postp oned from (SHINGRIX) (1 of 2) 2019 ( Insurance / Financial) CREATININE (SERUM) 10/11/2020 10/12/2019, 10/11/2019, 09/16/2019, Additional history exists COLONOSCOPY 04/22/2027 04/22/2017 DTaP,Tdap,and Td Vaccines 06/26/2027 06/26/2017, 03/19/2015 Postponed from (1 - Tdap) 1980 (Not Indicated) documented as of this encounter Implants Implanted Type 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 CORONAVIRUS COVID-19 STAT 10/26/2019 7:40 Chest pain, Res ults for this TESTING PM CDT unspecified type procedure a re in the results section. URINALYSIS STAT 10/26/2019 7:40 Chest pain, Results for this PM CDT unspecified type procedure a re in the results section. CBC WITH STAT 10/26/2019 7:37 Chest pain, Results for this DIFFERENTIAL PM CDT unspecified type procedure a re in the results section. N-TERMINAL PRO-BNP STAT Add-On 10/26/2019 7:37 Chest pain, Resul ts for this PM CDT unspecified type procedure a re in the results section. D-DIMER STAT 10/26/2019 7:37 Chest pain, Results for this PM CDT unspecified type procedure a re in the results section. PROTHROMBIN TIME / STAT 10/26/2019 7:37 Chest pain, Resul ts for this INR PM CDT unspecified type procedure a re in the results section. CBC WITH Routine 10/26/2019 7:37 Chest pain, Results for this DIFFERENTIAL PM CDT unspecified type procedure a re in the results section. COMP. METABOLIC STAT 10/26/2019 7:37 Chest pain, Results for this PANEL (24109) PM CDT unspecified type procedure are in the results section. TROPONIN I STAT 10/26/2019 7:37 Chest pain, Results for this PM CDT unspecified type procedure a re in the results section. MAGNESIUM STAT 10/26/2019 7:37 Chest pain, Results for this PM CDT unspecified type procedure a re in the results section. LIPASE STAT 10/26/2019 7:37 Chest pain, Results for this PM CDT unspecified type procedure a re in the results section. XR CHEST 1 VW COVID LIVIA 10/26/2019 7:31 Chest pain, Resu lts for this PM CDT unspecified type procedure a re in the results section. EKG-12 LEAD Routine 10/26/2019 6:51 PM CDT documented in this encounter Results TROPONIN I (10/26/2019 9:19 PM CDT) Pathologist Sig nature TROPONIN I <0.012 <=0.034 ng/mL [facility] Specimen Blood - VENOUS Narrative Performed At Equal or Less than 0.034 ng/ml---Normal [facility] Note: Cardiac troponin begins to [...] Performing Organization Address City/State/Zipcode Phone Number [facility] CLIA: [id number], [address] [place], [place] [address] CORONAVIRUS COVID-19 TESTING (10/26/2019 7:40 PM CDT) Pathologist Sig nature SARS-CoV-2 Not Detected Not Detected [facility] Specimen Swab - NASOPHARYNGEAL SWAB Narrative Performed At ID NOW COVID-19 Assay is an isothermal nucleic [facility] acid amplification test intended for the qualitative detection of nucleic acid from SARS-CoV-2 viral RNA in nasopharyngeal (HOTEL OR MOTEL CLEANING SUPERVISOR) specimens. It is used under Emergency Use [...] testing if clinically indicated. Performing Organization Address City/[facility] Phone Number [facility] CLIA: [id number], [address] [place], [place] [address] URINALYSIS (10/26/2019 7:40 PM CDT) Pathologist Sig nature APPEARANCE Clear Clear [facility] COLOR Yellow Yellow [facility] PH 7.0 4.8 - 8.0 [facility] SP GRAVITY 1.009 1.003 - 1.030 [facility] GLU U QUAL Normal Normal [facility] BLOOD Negative Negative [facility] KETONES Negative Negative [facility] PROTEIN Negative Negative [facility] UROBILIN Normal Normal [facility] BILIRUBIN Negative Negative [facility] NITRITE Negative Negative [facility] LEUK TRE Negative Negative [facility] RBC/HPF <1 0 - 3 HPF [facility] WBC/HPF 1 0 - 5 HPF [facility] BACTERIA Negative Negative [facility] MUCOUS Slight (A) Negative LPF [facility] SQ EPITH <1 HPF [facility] Specimen Urine - URINE, CLEAN CATCH Performing Organization Address [facility]/Zipcode Phone Number [facility] CLIA: [id number], [address] [address] N-TERMINAL PRO-BNP (10/26/2019 7:37 PM CDT) Pathologist Sig nature NT-proBNP 41 <=125 pg/mL [facility] Specimen Blood - VENOUS Narrative Performed At [facility] has been reported to cause a negative [facility] bias, interpret results relative to patient's use of biotin. Performing Organization Address [facility]/State/Zipcode Phone Number [facility] CLIA: [id number], [address] [place], [place] [address] PROTHROMBIN TIME / INR (10/26/2019 7:37 PM CDT) [facility] Signature PROTIME PATIENT 22.2 (H) 12.0 - 14.7 [facility] Seconds [facility] INR 2.0Comment: Normal [facility] INR <1.1; Warfarin [facility] Therapeutic range LABORATORY 2.0 to 3.0 or 2.5 to 3.5, depending upon the indications. Specimen Blood - VENOUS Performing Organization Address City/[facility]/Zipcode Phone Number [facility] CLIA: [id number], [address] [place], [place] [address] CBC WITH DIFFERENTIAL (10/26/2019 7:37 PM CDT) [facility] Sig nature WBC 12.80 (H) 4.20 - 10.70 [facility] 10*3/L [facility] RBC 5.43 4.26 - 5.52 [facility] 10*6/L [facility] HGB 13.2 12.2 - 16.4 [facility] g/dL [facility] HCT 40.8 38.4 - 49.3 % [facility] MCV 75.1 (L) 81.7 - 95.6 fL [facility] MCH 24.3 (L) 26.1 - 32.7 pg [facility] MCHC 32.4 31.2 - 35.0 [facility] g/dL [facility] RDW-SD 46.2 38.5 - 51.6 fL [facility] RDW-CV 17.4 (H) 12.1 - 15.4 % [facility] PLT 301 150 - 328 [facility] 10*3/L [facility] MPV 9.4 (L) 9.8 - 13.0 fL [facility] NRBC/100 WBC 0.0 0.0 - 10.0 /100 [facility] WBCs [facility] NRBC x10^3 <0.01 10*3/L [facility] GRAN MAT (NEUT) % 76.7 % [facility] IMM GRAN % 0.70 % [facility] LYMPH % 14.9 % [facility] MONO % 6.7 % [facility] EOS % 0.7 % [facility] BASO % 0.3 % [facility] GRAN MAT x10^3(ANC) 9.81 (H) 1.99 - 6.95 [facility] 10*3/uL HOSPITAL LAB[facility]ATORY IMM GRAN x10^3 0.09 (H) 0.00 - 0.06 [facility] 10*3/uL [facility] LYMPH x10^3 1.91 1.09 - 3.23 [facility] 10*3/uL [facility]ITAL [facility] MONO x10^3 0.86 0.36 - 1.02 [facility] 10*3/uL H[facility]ITAL [facility] EOS x10^3 0.09 0.06 - 0.53 [facility] 10*3/uL [facility]ITAL [facility] BASO x10^3 0.04 0.01 - 0.09 [facility] 10*3/uL [facility] Specimen Blood - VENOUS Performing Organization Address City/[facility] Phone Number [facility] CLIA: [id number], [address] MAGNESIUM (10/26/2019 7:37 PM CDT) Pathologist Sig nature MAGNESIUM 1.9 1.7 - 2.4 mg/dL [facility] Specimen Blood - VENOUS Performing Organization Address City/[facility] Phone Number [facility] CLIA: [id number], [address] [place] [address] LIPASE (10/26/2019 7:37 PM CDT) Pathologist Sig nature LIPASE 36 0 - 220 U/L [facility] Specimen Blood - VENOUS Performing Organization Address [facility] Phone Number [facility] CLIA: [id number], [address] [address] TROPONIN I (10/26/2019 7:37 PM CDT) Pathologist Sig nature TROPONIN I <0.012 <=0.034 ng/mL [facility] Specimen Blood - VENOUS Narrative Performed At Equal or Less than 0.034 ng/ml---Normal [facility] Note: Cardiac troponin begins to [...] patient's use of biotin. Performing Organization Address City/[facility] Phone Number [facility] CLIA: [id number], [address] [address] [address] D-DIMER (10/26/2019 7:37 PM CDT) [facility] nature D-DIMER <0.27 <0.41 g/mL (FEU) [facility] Specimen Blood - VENOUS Narrative Performed At This test may be used in conjunction with a [facility] clinical pretest probability (PTP) assessment model to exclude venous thromboembolism (VTE) in patients suspected of deep venous thrombosis (DVT) and pulmonary embolism (PE) A D-Dimer value less than 0.50 g/ml (FEU) has a negative predicative value of 96 to 100% (95% CI)and 97 to 100% (95% CI) as an aid in the diagnosis of deep vein thrombosis (DVT) and pulmonary embolism when there is low or moderate pretest probability of PE or DVT. D-Dimer values are expressed in initial fibrinogen equivalent units (FEU)" The assay results should be used with other information, including the clinical context, in forming a diagnosis. Performing Organization Address City/State/Zipcode Phone Number [facility] CLIA: [id number], [address] [place], [place] [address] [address] [facility] COMP. METABOLIC PANEL (98709) (10/26/2019 7:37 PM CDT) Pathologist Sig nature NA 137 135 - 145 [facility] mmol/L [facility] K 3.7 3.5 - 5.0 [facility] mmol/L [facility] CL 93 (L) 98 - 108 mmol/L [facility] CO2 TOTAL 36 (H) 23 - 31 mmol/L [facility] AGAP 8 2 - 16 [facility] BUN 21 7 - 23 mg/dL [facility] GLUCOSE 134 (H) 70 - 110 mg/dL [facility] CREATININE 1.22 0.60 - 1.25 [facility] mg/dL [facility] TOTAL BILI 0.6 0.1 - 1.1 mg/dL [facility] CALCIUM 10.3 8.6 - 10.6 [facility] mg/dL [facility] T PROTEIN 8.5 (H) 6.3 - 8.2 g/dL [facility] ALBUMIN 4.4 3.5 - 5.0 g/dL [facility] ALK PHOS 110 34 - 122 U/L [facility] ALTv 27 5 - 50 U/L [facility] AST(SGOT) 35 13 - 40 U/L [facility] eGFR Calculation 62.9 mL/min/1.73m2 [facility] [place]) eGFR Calculation 76.2 mL/min/1.73m2 [facility] () [facility] Specimen Blood - VENOUS Narrative Performed At Association of Glomerular Filtration Rate (GFR) [facility] and Staging of Kidney Disease* + [...] Performing Organization Address City/State/Zipcode Phone Number [facility] CLIA: [id number], [address] [facility] [place] [address] XR CHEST 1 VW COVID (10/26/2019 7:31 PM CDT) Specimen Impressions Performed At PACS/VR/DOSE Mild pulmonary vascular congestion. No r adiographic findings typical of COVID-19 pneumonia. Disclaimer: Generally, the findings on c hest imaging in COVID-19 are not specific, and overlap with other infecti ons, including influenza, H1N1, SARS and MERS. According to the Centers for Disease Control (CDC) and the [employer], viral testing remains the only specific method of diagnosis even if CXR or CT findings are suggestiv e of COVID-19. Preliminary Report Dictated by Resident: Russ Persaud I, Shayna Bautista MD., have reviewed thi s study and agree with the above report. Narrative Performed At PROCEDURE: CHEST XRAY PACS/VR/DOSE CLINICAL INDICATION: chest pain COMPARISON: Chest radiograph 10/11/2019 FINDINGS: The lungs are mildly congested, but otherwise clear. N o pleural effusion or pneumothorax. Left chest wall pacemaker with the leads extending to the right atrium and right ventricle. The heart is mildly enlarged. No acut e bony abnormality. Procedure Note [facility], Radiant Results Inft User - 2019 10:02 PM CDT PROCEDURE: CHEST XRAY CLINICAL INDICATION: chest pain COMPARISON: Chest radiograph 10/11/2019 FINDINGS: The lungs are mildly congested, but othe rwise clear. No pleural effusion or pneumothorax. Left chest wall pacemaker with the leads extending to the right atrium and right ventricle. The heart is mildly enl arged. No acute bony abnormality. IMPRESSION Mild pulmonary vascular congestion. No r adiographic findings typical of COVID-19 pneumonia. Disclaimer: Generally, the findings on c hest imaging in COVID-19 are not specific, and overlap with other infecti ons, including influenza, H1N1, SARS and MERS. According to the Centers for Disease Con trol (CDC) and the [employer], viral testing remains the only specific method of diagnosis even if CXR or CT findings are suggestiv e of COVID-19. Preliminary Report Dictated by Resident: Russ Persaud I, Shayna Bautista MD., have reviewed this study and agree with the above report. Performing Organization Address City/State/Zipcode Phone Number PACS/VR/DOSE documented in this encounter Visit Diagnoses Diagnosis Chest pain, unspecified type - Primary documented in this encounter Administered Medications Medication Order MAR Action Action Date Dose Rate Site aspirin chewable tablet 324 mg Given 10/26/2019 7:41 PM CDT 324 mg 324 mg, Oral, ONCE, 1 dose, 10/26/19 at 2000, Routine LORazepam (ATIVAN) injection 0.5 mg Given 10/26/2019 8:43 PM CDT 0.5 mg 0.5 mg, Slow IV Push, ONCE, 1 dose, 10/26/19 at 2130, STAT LORazepam (ATIVAN) injection 0.5 mg Given 10/26/2019 10:19 PM CDT 0.5 mg 0.5 mg, Slow IV Push, ONCE, 1 dose, 10/26/19 at 2315, STAT documented in this encounter Insurance Payer Benefit Plan / Subscriber ID Effective Phone Address T e Group Dates [facility] [id number] 2017-[employer] [phone] [address] [facility] [employer] [facility] [id number] [place] [address] (Home) [place] [address] documented as of this encounter Advance Directives Name Relationship Healthcare Agent Communication Relationship Keaton Nelson Spouse Primary healthcare agent Elisabeth Soliz Sibling First alternate healthcare [phone] agent (Mobile)
--- OUTSIDE RECORDS SUMMARY | 2019-11-07 22:55 | XMS REPORT | Summary of Care ---
:1970 Author Organization [facility] Address [address] [place] [id number] Care Team Providers Name Role Phone Elmer Andrade MD Primary Care Provider NAVJOT Espinoza Unavailable Unavailable MD Rocco Unavailable Mary Quezada MD Unavailable Genna Anand WOUND CARE CENTER CONSULTANT Unavailable Unavailable MD Casimiro Unavailable Ricardo Rodriguez DO Airport Representative Reason for Visit Reason Comments Obstructive Sleep Apnea 12 Month f/u Encounter Details Date Type Department Care Team Description 10/27/2019 Telemedicine Visit [facility] ADC Max Aguiar bstructive sleep Pulmonary Clinic MD Kellee apnea on CPAP [address], [address] (Primary Dx) [address] [place] [address] [id number] Allergies Active Allergy Reactions Severity Noted Date [...] as of this encounter (statuses as of 10/27/2019) Medications Medication Sig Dispensed Refills Start Date [...] for Nausea Hyperglycemia and Vomiting (N/V). Insulin Ware, Disposable, Use as directed, 1x 100 Each [...] as of this encounter (statuses as of 10/27/2019) Active Problems Problem Noted Date Acute hypokalemia [...] Added automatically from request for lillian lawson [id number] Syncope 04/01/2017 Chest pain, rule out acute [...] Chest pain 06/12/2016 Coronary artery disease involving [place] coronary briseyda ry of [place] heart 06/12/2016 with angina pectoris [place] (myocardial infarction) 06/12/2016 Type 2 diabetes mellitus without complication 06/12/20 16 Essential hypertension 06/12/2016 History of alcohol abuse Overview: Sober for 16 years documented as of this encounter (statuses as of 10/27/2019) Resolved Problems Problem Noted Date Resolved Date Chest pain radiating to arm 08/08/2016 08/19/2016 Abdominal pain 07/19/2016 08/19/2016 History of epidural anesthesia 07/04/2016 7 Morbid obesity with body mass index of 50 or higher 06/26/19 17 08/19/2016 Obesity (BMI 30-39.9) 06/12/2016 08/19/2016 documented as of this encounter (statuses as of 10/27/2019) Immunizations Name Administration Dates Next Due Td [...] been in contact with No / Unsure 10/27/2019 9:51 AM CDT someone who was confirmed or suspected to have Coronavirus / COVID-19? documented as of this encounter Last Filed Vital Signs Vital Sign Reading Time Taken Comments Blood Pressure 130/87 10/27/2019 9:51 AM CDT Pulse 78 10/27/2019 9:51 AM CDT Temperature - - Respiratory Rate - - Oxygen Saturation - - Inhaled Oxygen Concentration - - Weight 127 kg (280 lb) 10/27/2019 9:51 AM CDT Height 177.8 cm (5' 10") 10/27/2019 9:51 AM CDT Body Mass Index 40.18 10/27/2019 9:51 AM CDT documented in this encounter Progress Notes Max Aguiar MD - 10/27/2019 11:00 AM CDTThe patient was contacted by phone today in lieu of a clinic visit. Verbal consent was obtained from the patient for telehealth services provided below. The conversation took place between the patient at their home and me from the [facility] sleep clinic telephone number. It was done through telephone without video. The whole encounter lasted 15 minutes and more than 50% of the total time speaking to the patient was done in counseling. Reason for Clinic Visit: The patient has Obstructive Sleep Apnea (GREGORIO) and is currently under Continuous Positive Airway Pressure (CPAP) treatment. Chief Complaint: Obstructive Sleep Apnea History of Present Illness: The patient usually goes to bed around 9:30-10 p.m. and wakes up around 6:30-7 a.m. It takes 10 minutes on average to fall asleep. During the night, the patient wakes up 1-2 times to go to the restroom. The patient takes naps during the day. These naps usually last 1-1.5 hours each. The patient does not suffer from irresistible sleep attacks during the day. The patient does not experience sudden loss of muscle tone when emotional or excited. The patient does not report vivid dream-like images and loss of muscle tone when falling asleep and upon awakening. [place] Sleepiness Scale score: 18 (0-24). Social History: The patient does not smoke cigarettes. The patient does not drink alcoholic beverages. Caffeinated beverages consumption: 0-1 per day. Family History: The family history is positive for snoring in blood relatives. Review of Systems: 1)Respiratory: positive for snoring and witnessed apneas; 2)Cardiovascular: positive for hypertension; 3)Endocrine/Metabolic: positive for diabetes mellitus; 4)Digestive: negative for abnormalities; 5)Urinary: positive for nocturia; 6)Skeletal: no skeletal abnormalities detected; 7)Muscular: negative f or muscular abnormalities; 8)Nervous: positive for hypersomnia; 9)Integumentary: no visible or reported skin or hair abnormalities; 10)Reproductive: no reproductive abnormalities noted; 11)Immune/Lymphatic/Allergy: no immune or lymphatic abnormalities found. Sleep Study Results and CPAP Compliance: The patient was diagnosed with Obstructive Sleep Apnea Syndrome on 10/28/2016 and had Continuous Positive Airway Pressure (CPAP) titration on 11/17/2016. The diagnostic polysomnography revealed respiratory disturbance index of 101.3 events/hr of total sleep (normal <5/hr) with a minimum oxygen saturation of 70%. On the therapeutic night, CPAP was titrated to apressure of 14 cm H2O which was effective in normalizing patient's breathing during sleep. The patient reports increased daytime alertness while using the machine on an average of 8-9 hours during sleep at home. The patient tolerates the CPAP mask well. No side effects of CPAP treatment are reported. Impression: The patient is benefiting from CPAP treatment and needs to continue regular CPAP use. Diagnosis: Obstructive Sleep Apnea Syndrome clinically well controlled by CPAP treatment G47.33 Recommendations and Patient Education: The condition of Obstructive Sleep Apnea was discussed with the patient and the possible consequences of untreated sleep apnea regarding quality of sleep, daytime alertness, and cardiovascular complications were underlined. All of patients questions were welcomed and thoroughly answered. The patient was encouraged to continue regular CPAP treatment at home at 14 cm H2O. Additional time was spent discussing sleep hygiene including: regular bedtime and wake-up times; enough sleep hours; going to bed only when sleepy; using bed for the sole purpose of sleeping; avoidanceof: 1) caffeinated and alcoholic beverages, 2) strenuous cognitive activity, or 3) heavy meals in the evening. The patient reported efforts to implement these sleep hygiene measures at home and had some additional questions which were answered in detail. A follow up visit as needed was also recommended. The patient was instructed to contact us in case of any further questions, concerns, problems, or side effects of CPAP treatment. Laisha Ma MA - 10/27/2019 11:00 AM CDT John Paul Nelson contacted for tele visit /Video visit. John Paul Nelson prefers Video Chat. [phone] (home) Telephone Information: Patient educated on plan of care, verbalized understanding, and verbally consented for information to be collected for diagnoses and treatment of their condition. The following were reviewed with the patient: - Number to call: [phone] - Current Medications - Allergies - Blood Pressure - Heart Rate - Pain Score - Weight - Reason for visit - EES Score - 18 - Compliance Report - N/A Patient informed that their provider would be contacting them shortly to complete their visit. LAISHA REYNOLDS MA 10/27/2019 9:54 AM documented in this encounter Plan of Treatment Date Type Specialty Care Team Description 11/02/2019 Telemedicine Visit Internal Medicine Lilibeth Andrade MD [address] [place] [address] [phone] 11/08/2019 Nurse Visit Anti-coagulation Clinic Nurse, Vtc Anticoag 11/11/2019 Telemedicine Visit Psychiatry Mendez Martinez MD [address] [place] [address]. [place] [address] 11/30/2019 Office Visit Cardiology Practitioner, Heart Failure Nurse 12/02/2019 Appointment Cardiac Electrophysiology Ho Shukla MD [address] [place] [address] Outpt-Simi, Pacemaker/Icd 12/02/2019 Office Visit Oncology Lincoln Griffiths MD [address] [place], [place] [address] [phone] 12/08/2019 Office Visit Ophthalmology Yariel Tineo MD [address] [facility] [place] [address] 02/08/2020 Office Visit Cardiology Robert Adkins MD [address] [facility] [address] [place] [address] [phone] 02/22/2020 Office Visit Endocrinology Diabetes & Jones, Tre rodriguez MD Metabolism [address] [place] [address] [phone] Health Maintenance Due Date Last Done Comments [...] 2019 ( Insurance / Financial) CREATININE (SERUM) 10/25/2020 10/26/2019, 10/12/2019, 10/11/2019, Additional history exists COLONOSCOPY 04/22/2027 04/22/2017 DTaP,Tdap,and Td Vaccines 06/26/2027 06/26/2017, 03/19/2015 Postponed from (1 - Tdap) 1980 (Not Indicated) documented as of this encounter Implants Implanted Type Area Water Taxi Captain Device Shelf Model / Identifier Expiration Serial / Date Lot Prolene Mesh MESH Right: Ethicon 12/20/2020 PMSK / Implanted: Qty: 1 on 07/04/2016 by Alfonso Martinez MD at [facility] [employer] PMSK / [id number] Pacemaker PACEMAKER Stent-06/24/2016 Implanted: 06/24/2016 (Quantity not on file) documented as of this encounter Results Not on filedocumented in this encounter Visit Diagnoses Diagnosis Obstructive sleep apnea on CPAP - Primar y Obstructive sleep apnea (adult) (pediatr ic) documented in this encounter Insurance Payer Benefit Plan / Subscriber ID Effective Phone Address Kellee adame Group Dates [place] [facility] [place] [id number] 2017-Lux [phone] [address] [employer] [phone] [place] [address] (Home) [place] [address] documented as of this encounter Advance Directives Name Relationship Healthcare Agent Communication Relationship Pandagutierrez Leslie Spouse Primary healthcare agent Elisabeth Soliz Sibling [facility] healthcare agent (Mobile)
--- OUTSIDE RECORDS SUMMARY | 2019-11-07 22:57 | XMS REPORT | Clinical Summary ---
:1970 Author Organization [facility] - [facility] Address [address] [place] [id number] Care Team Providers Name Role Phone Elmer Andrade MD Primary Care Provider NAVJOT Espinoza Unavailable Unavailable MD Rocco Unavailable Mary Quezada MD Unavailable Genna Anadn Unavailable Unavailable MD Casimiro Unavailable Ricardo Rodriguez DO Pediatric Dietician Allergies Active Allergy Reactions Severity Noted Date [...] for Nausea Hyperglycemia and Vomiting (N/V). 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 CO (myocardial [...] Encounters Date Type Specialty Care Team Description 11/02/2019 Telemedicine Visit Internal Medicine Alejandra Andrade problem (Primary Dx); Sayra Nguyen MD 11/02/2019 Travel 10/27/2019 Telemedicine Visit Pulmonary Disease Cosme, Obst ructive sleep Max Merritt MD apnea on CPAP (Primary Dx) 10/27/2019 Travel 10/26/2019 Emergency Emergency Medicine Anderson, K Chest cassie n, unspecified type (Primary Dx); Diana, PAC Anxiety 10/26/2019 Travel 10/19/2019 Telemedicine Visit Endocrinology Diabetes Jones, Wentong , 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); & Metabolism MD Secondary male hypogonadism; Dyslipidemia; Essential hyper tension; High serum marysol sterone 10/13/2019 Transition of Care Case Management Bg Esquivel tion Of Care Angelique Arroyo RN 10/11/2019 Emergency Medicine - Inpatient Ibikunle, Chest p ain - only MOLINA McclendonP 10/12/2019 Thaddeus Interiano MD 10/11/2019 Travel 10/11/2019 Orders Only Doctor Unassigned, [place] 10/11/2019 Telephone Cardiology Erasmo Adkins MD 10/08/2019 Travel 10/07/2019 Refill Cardiology Al Valiente Refottoniel merritt MD 09/16/2019 Radial Drill Operator Visit Phlebotomy Vonda Kaur Chronic farzad FILIBERTO Keenan heart failure 2, [facility] 09/16/2019 Telephone Cardiology Vonda Kaur Results FILIBERTO Pickens 09/13/2019 Telephone Cardiology Erasmo Adkins MD 09/12/2019 Nurse Triage Catherine TalaveraED; Daniel Acosta RN 09/11/2019 Radial Drill Operator Visit Phlebotomy Sharon Andrade MD Pob, [facility] Main 09/11/2019 Orders Only Doctor Unassigned, [place] 09/10/2019 Refill Endocrinology Diabetes Zhen Jones, Refi ll Request & Metabolism MD 09/09/2019 Telemedicine Visit Internal Medicine Janell Andrade (Primary Dx); Lilibeth Payne, Nail problem; Dry skin; Memory problem; Anxiety 09/06/2019 Nurse Visit Anti-coagulation Andrade, Anticoagula tion management encounter; Clinic Lilibeth A, Other pulmonary embolism without acute cor pulmonale, unspecified chronicity Nurse, [facility] 08/31/2019 Radial Drill Operator Visit Phlebotomy Vonda Kaur FNP heart failure 2, [facility] 08/31/2019 Telephone Cardiology Jed, Rx Concern/Ques tion Robert Breaux MD 08/30/2019 Hospital Encounter Cardiac Carayannopoulo Atrial fibrillation, unspecified type (Primary Dx); Electrophysiology Ho calderon MD Pacemaker Simi, Remote Device Check At Home - 08/30/2019 Refill Cardiology Al Valiente Refill Constance merritt MD 08/27/2019 Office Visit Gastroenterology Jose Juan Mccartyesoph ageal reflux disease without esophagitis (Primary Dx); MD Ioana Hiatal hernia; Fatty liver dis ease, nonalcoholic; Tubular adenoma of colon; Iron deficiency anemia due to chronic blood loss 08/27/2019 Nurse Visit Anti-coagulation Andrade, Anticoagula tion management encounter; Clinic Lilibeth A, Other pulmonary embolism without acute cor pulmonale, unspecified chronicity Nurse, [facility] Antico 08/27/2019 Radial Drill Operator Visit Phlebotomy Maye Mccarty MD heart failure [facility] 08/27/2019 Office Visit Cardiology Vonda Kaur Chronic diastol ic heart failure (Primary Dx); FILIBERTO [place] Vitamin B12 deficiency Practitioner, Heart Failure Nurse 08/27/2019 Telephone Cardiology Jed, LAB WORK Robert Breaux MD 08/26/2019 Telephone Cardiology Jed, Orders (lab ord ers); Robert Talk To Nurse MD Namita 08/24/2019 Emergency Medicine - Inpatient Wang, Hypokal emia - only Gaurav, 08/25/2019 Adal Moran MD 08/24/2019 Radial Drill Operator Visit Phlebotomy Aye, Chronic hea rt failure with preserved ejection fraction; MD Lincoln Other elevated white blood cell (WBC) co unt; [facility] Iron deficiency anemia, unspecified iron deficiency anemia type; Chronic diastol ic congestive heart failure; Stage 2 chronic kidney disease; Pulmonary embol ism, unspecified chronicity, unspecified pulmonary embolism type, unspecified whether acute cor pulmonale present 08/24/2019 Office Visit Oncology Aye, Pulmonary embol ism, unspecified chronicity, unspecified pulmonary embolism type, unspecified whether acute cor pulmonale present (Primary Dx); MD Lincoln Other elevated white blood cell (WBC) count; Iron deficiency anemia, unspecified iron deficiency anemia type; Chronic diastol ic congestive heart failure; Stage 2 chronic kidney disease 08/24/2019 Telephone Cardiology Chivo Mcadams MD 08/23/2019 Orders Only Doctor Unassigned, [place] 08/20/2019 Telephone Cardiology Jed, Notification; Dina AB Fredim WORK MD Namita 08/17/2019 Emergency Medicine - Inpatient Socorro Reeves Acute h ypokalemia - only S, PAC 08/19/2019 Wallace Lea MD 08/17/2019 Radial Drill Operator Visit Phlebotomy Jed, Chronic hea rt failure Fredi with preserved MD Namita ejection fraction 2, [facility] 08/17/2019 Telephone Internal Medicine Rosanne Andrade on Lilibeth Payne MD 08/13/2019 Nurse Visit Anti-coagulation Lupe Anticoagula tion management encounter; Clinic Lilibeth Payne, Other pulmonary embolism without acute cor pulmonale, unspecified chronicity Nurse, Wyc Anticoag 08/11/2019 Telephone Cardiology Jed, Rx Concern/Ques tion; Robert LAB WORK MD Namita 08/10/2019 Office Visit Cardiology Jed, Chronic heart f ailure with preserved ejection fraction (Primary Dx); Robert Vitamin B12 def iciency MD Namita 08/10/2019 Radial Drill Operator Visit Phlebotomy Jed, Chronic hea rt failure Robert with preserved MD Namita ejection fraction 2, [facility] 08/10/2019 Orders Only Doctor Unassigned, [place] 08/09/2019 Telephone Cardiology Jed Orders Robert Breaux MD 08/09/2019 Telephone Cardiology Jed, Assessment Robert Breaux MD 08/08/2019 Emergency Emergency Medicine Drever, Hafsa Chest p ain, unspecified type (Primary Dx); G, 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 Congestive hear t failure, unspecified HF chronicity, unspecified heart failure type; Acute on chroni c diastolic congestive heart failure; Anxiety; Angina at rest; Hypervolemia, u nspecified hypervolemia type; Pacemaker; SCHILLING (dyspnea on exertion); Essential hyper tension; Type 2 diabetes mellitus without complication, with long-term current use of insulin 08/06/2019 Radial Drill Operator Visit Phlebotomy Jed Chronic hea rt failure Robert with preserved MD Namita ejection fraction 2, [facility] 08/06/2019 Orders Only Doctor Unassigned, [place] 08/06/2019 Telephone Cardiology Jed, LAB WORK Robert Breaux MD from Last 3 Months Immunizations Name [...] last month, have you been in contact Unable to assess 11/02/2019 7:16 AM CDT with someone who was confirmed or suspected to have Coronavirus / COVID-19? Last Filed Vital Signs Vital Sign Reading Time Taken Comments Blood Pressure 130/87 10/27/2019 9:51 AM CDT Pulse 78 10/27/2019 9:51 AM CDT Temperature 36.8 C (98.3 F) 10/26/2019 6:23 PM CDT Respiratory Rate 10 10/26/2019 10:00 PM CDT Oxygen Saturation 94% 10/26/2019 10:00 PM CDT Inhaled Oxygen Concentration - - Weight 127 kg (280 lb) 10/27/2019 9:51 AM CDT Height 177.8 cm (5' 10") 10/27/2019 9:51 AM CDT Body Mass Index 40.18 10/27/2019 9:51 AM CDT Plan of Treatment Date Type Specialty Care Team Description 11/08/2019 Nurse Visit Anti-coagulation Clinic Harley Johns MD [address] [place] [address] Nurse, Vtc Anticoag 11/30/2019 Office Visit Cardiology Practitioner, Heart Failure Nurse 12/02/2019 Appointment Cardiac Electrophysiology Ho Shukla MD [address] [place] [address] Outpt-Simi, Pacemaker/Icd 12/02/2019 Office Visit Oncology Lincoln Griffiths MD [address] [place] [address] 0 [phone] 12/06/2019 Office Visit Internal Medicine Lilibeth Andrade MD [address] [address] [phone] 12/08/2019 Office Visit Ophthalmology Yariel Tineo MD [address] [place] [address]. [place], [place] [address] 01/04/2020 Office Visit Internal Medicine Lilibeth Andrade MD [address] [address] [phone] 02/07/2020 Office Visit Internal Medicine Lilibeth Andrade MD [address] [address] 15 [phone] 02/08/2020 Office Visit Cardiology Robert Adkins MD [address] [place], [place] [address] 02/22/2020 Office Visit Endocrinology Diabetes & Jones, Tre rodriguez MD Metabolism [address] [place], [place] [address] 03/07/2020 Office Visit Internal Medicine Lilibeth Andrade MD [address] [address] [phone] Health Maintenance Due Date Last Done Comments [...] 1980 (Not Indicated) Implants Implanted Type Area Cold Storage Supervisor Device Shelf Model / Identifier Expiration Serial / Date Lot Prolene Mesh MESH Right: Ethicon 12/20/2020 PMSK / Implanted: Qty: 1 on 07/04/2016 by Alfonso Martinez MD at [facility] [employer] PMSK / [id number] Pacemaker PACEMAKER Stent-06/24/2016 Implanted: 06/24/2016 (Quantity not on file) Procedures Procedure Name Priority Date/Time Associated Diagnosis Comme nts TROPONIN I STAT 10/26/2019 9:19 Chest pain, Results for PM CDT unspecified type this proced ure are in the results section. CORONAVIRUS COVID-19 STAT 10/26/2019 7:40 Chest pain, Res ults for TESTING PM CDT unspecified type this proced ure are in the results section. URINALYSIS STAT 10/26/2019 7:40 Chest pain, Results for PM CDT unspecified type this proced ure are in the results section. N-TERMINAL PRO-BNP STAT Add-On 10/26/2019 7:37 Chest pain, Resul ts for PM CDT unspecified type this proced ure are in the results section. PROTHROMBIN TIME / STAT 10/26/2019 7:37 Chest pain, Resul ts for INR PM CDT unspecified type this proced ure are in the results section. CBC WITH DIFFERENTIAL STAT 10/26/2019 7:37 Chest pain, Re sults for PM CDT unspecified type this proced ure are in the results section. MAGNESIUM STAT 10/26/2019 7:37 Chest pain, Results for PM CDT unspecified type this proced ure are in the results section. LIPASE STAT 10/26/2019 7:37 Chest pain, Results for PM CDT unspecified type this proced ure are in the results section. TROPONIN I STAT 10/26/2019 7:37 Chest pain, Results for PM CDT unspecified type this proced ure are in the results section. D-DIMER STAT 10/26/2019 7:37 Chest pain, Results for PM CDT unspecified type this proced ure are in the results section. COMP. METABOLIC PANEL STAT 10/26/2019 7:37 Chest pain, Re sults for (21723) PM CDT unspecified type this proced ure are in the results section. CBC WITH DIFFERENTIAL Routine 10/26/2019 7:37 Chest pain, Re sults for PM CDT unspecified type this proced ure are in the results section. XR CHEST 1 VW COVID LIVIA 10/26/2019 7:31 Chest pain, Resu lts for PM CDT unspecified type this proced ure are in the results section. EKG-12 LEAD Routine 10/26/2019 6:51 PM CDT EKG-12 LEAD Routine 10/26/2019 6:26 PM CDT EMERGENCY SERVICES Routine 10/26/2019 12:01 AGREEMENTS AND AM CDT AUTHORIZATIONS POCT GLUCOSE Routine 10/12/2019 11:03 Results for (AUTOMATED) AM CDT this procedure are in the results section. POCT GLUCOSE Routine 10/12/2019 7:31 Results for (AUTOMATED) AM CDT this procedure are in the results section. CBC WITH DIFFERENTIAL Routine 10/12/2019 4:04 Re sults for AM CDT this procedure are in the results section. PROTHROMBIN TIME / Routine 10/12/2019 4:04 Resul ts for INR AM CDT this procedure are in the results section. BASIC METABOLIC PANEL Routine 10/12/2019 4:04 Re sults for (NA, K, CL, CO2, AM CDT this proced ure GLUCOSE, BUN, are in the CREATININE, CA) results section. CBC WITH DIFFERENTIAL Routine 10/12/2019 4:04 Re sults for AM CDT this procedure are in the results section. TROPONIN I Routine 10/12/2019 4:04 Results for AM CDT this procedure are in the results section. TROPONIN I Routine 10/12/2019 12:00 Results for AM CDT this procedure are in the results section. CBC WITH DIFFERENTIAL STAT 10/11/2019 4:58 Chest pain in a dult Results for PM CDT this procedure are in the results section. CORONAVIRUS COVID-19 STAT 10/11/2019 4:58 Chest pain in ad ult Results for TESTING PM CDT this procedure are in the results section. N-TERMINAL PRO-BNP STAT 10/11/2019 4:58 Chest pain in adul t Results for PM CDT this procedure are in the results section. PROTHROMBIN TIME / STAT 10/11/2019 4:58 Chest pain in adul t Results for INR PM CDT this procedure are in the results section. ACTIVATED PARTIAL STAT 10/11/2019 4:58 Chest pain in adult Results for THRMPLAS [place] PM CDT this procedure are in the results section. TROPONIN I STAT 10/11/2019 4:58 Chest pain in adult Resu lts for PM CDT this procedure are in the results section. HEPATIC FUNCTION STAT 10/11/2019 4:58 Chest pain in adult Results for PANEL (80470) PM CDT this procedure (ALB,T.PRO,BILI are in the T,BU/BC,ALT,AST,ALK results PHOS) section. BASIC METABOLIC PANEL STAT 10/11/2019 4:58 Chest pain in a dult Results for (NA, K, CL, CO2, PM CDT this proced ure GLUCOSE, BUN, are in the CREATININE, CA) results section. CBC WITH DIFFERENTIAL Routine 10/11/2019 4:58 Chest pain in a dult Results for PM CDT this procedure are in the results section. XR CHEST 1 VW COVID STAT 10/11/2019 4:24 Chest pain in donavon lt Results for PM CDT this procedure are in the results section. EKG-12 LEAD STAT 10/11/2019 3:49 PM CDT EKG-12 LEAD Routine 10/11/2019 3:21 PM CDT CONSENT/REFUSAL FOR Routine 10/11/2019 3:09 DIAGNOSIS AND PM CDT TREATMENT HOSPITAL ADM - MISC Routine 10/11/2019 12:01 AM CDT HOSPITAL ADMISSION Routine 10/11/2019 12:01 AM CDT N-TERMINAL PRO-BNP Routine 09/16/2019 9:57 Chronic diastolic Results for AM CDT heart failure this procedure are in the results section. MAGNESIUM Routine 09/16/2019 9:57 Chronic diastolic Result s for AM CDT heart failure this procedure are in the results section. BASIC METABOLIC PANEL Routine 09/16/2019 9:57 Chronic diastol ic Results for (NA, K, CL, CO2, AM CDT heart failure this proce dure GLUCOSE, BUN, are in the CREATININE, CA) results section. AGREEMENTS Routine 09/16/2019 12:01 AUTHORIZATIONS AND AM CDT IRREVOCABLE ASSIGNMENTS (FORM 2000) COMP. METABOLIC PANEL Routine 09/11/2019 9:00 Hyperkalemia Re sults for (56275) AM CDT this procedure are in the results section. CONSENT/REFUSAL FOR Routine 09/11/2019 8:50 DIAGNOSIS AND AM CDT TREATMENT ASSIGNMENT OF Routine 09/11/2019 8:50 BENEFITS AM CDT POCT Routine 09/06/2019 Anticoagulation Results for PT/INR(COAGUCHEK) management enc ounter this procedure Other pulmonary are in the embolism without results acute cor pulmonale, section . unspecified chronicity N-TERMINAL PRO-BNP Routine 08/31/2019 8:39 Chronic diastolic Results for AM CDT heart failure this procedure are in the results section. MAGNESIUM Routine 08/31/2019 8:39 Chronic diastolic Result s for AM CDT heart failure this procedure are in the results section. BASIC METABOLIC PANEL Routine 08/31/2019 8:39 Chronic diastol ic Results for (NA, K, CL, CO2, AM CDT heart failure this proce dure GLUCOSE, BUN, are in the CREATININE, CA) results section. AGREEMENTS Routine 08/31/2019 12:01 AUTHORIZATIONS AND AM CDT IRREVOCABLE ASSIGNMENTS (FORM 2001) PACEMAKER DEVICE Routine 08/30/2019 3:00 CHECK AM CDT CONSENT TO CONTACT Routine 08/27/2019 2:52 Resul ts for FOR VOLUNTARY PM HUMAN RESOURCES ADMIN this procedure RESEARCH are in the results section. MAGNESIUM Routine 08/27/2019 11:54 Chronic diastolic Result s for AM HUMAN RESOURCES ADMIN heart failure this procedure are in the results section. N-TERMINAL PRO-BNP Routine 08/27/2019 11:54 Chronic diastolic Results for AM HUMAN RESOURCES ADMIN heart failure this procedure are in the results section. BASIC METABOLIC PANEL Routine 08/27/2019 11:54 Chronic diastol ic Results for (NA, K, CL, CO2, AM HUMAN RESOURCES ADMIN heart failure this proce dure GLUCOSE, BUN, are in the CREATININE, CA) results section. POCT Routine 08/27/2019 Anticoagulation Results for PT/INR(COAGUCHEK) management enc ounter this procedure Other pulmonary are in the embolism without results acute cor pulmonale, section . unspecified chronicity POCT GLUCOSE Routine 08/25/2019 4:17 Results for (AUTOMATED) PM HUMAN RESOURCES ADMIN this procedure are in the results section. BASIC METABOLIC PANEL Routine 08/25/2019 2:26 Re sults for (NA, K, CL, CO2, PM HUMAN RESOURCES ADMIN this proced ure GLUCOSE, BUN, are in the CREATININE, CA) results section. POCT GLUCOSE Routine 08/25/2019 11:11 Results for (AUTOMATED) AM HUMAN RESOURCES ADMIN this procedure are in the results section. POCT GLUCOSE Routine 08/25/2019 7:35 Results for (AUTOMATED) AM HUMAN RESOURCES ADMIN this procedure are in the results section. CBC WITH DIFFERENTIAL Routine 08/25/2019 4:05 Re sults for AM HUMAN RESOURCES ADMIN this procedure are in the results section. PROTHROMBIN TIME / Routine 08/25/2019 4:05 Resul ts for INR AM HUMAN RESOURCES ADMIN this procedure are in the results section. MAGNESIUM Routine 08/25/2019 4:05 Results for AM HUMAN RESOURCES ADMIN this procedure are in the results section. CBC WITH DIFFERENTIAL Routine 08/25/2019 4:05 Re sults for AM HUMAN RESOURCES ADMIN this procedure are in the results section. BASIC METABOLIC PANEL Routine 08/25/2019 4:05 Re sults for (NA, K, CL, CO2, AM HUMAN RESOURCES ADMIN this proced ure GLUCOSE, BUN, are in the CREATININE, CA) results section. BASIC METABOLIC PANEL STAT 08/25/2019 12:17 Re sults for (NA, K, CL, CO2, AM HUMAN RESOURCES ADMIN this proced ure GLUCOSE, BUN, are in the CREATININE, CA) results section. POCT GLUCOSE Routine 08/24/2019 8:34 Results for (AUTOMATED) PM HUMAN RESOURCES ADMIN this procedure are in the results section. EKG-12 LEAD Routine 08/24/2019 3:19 PM HUMAN RESOURCES ADMIN NOTICE OF PRIVACY Routine 08/24/2019 3:04 PRACTICES PM HUMAN RESOURCES ADMIN CONSENT/REFUSAL FOR Routine 08/24/2019 3:03 DIAGNOSIS AND PM HUMAN RESOURCES ADMIN TREATMENT MAGNESIUM Add-on 08/24/2019 11:12 Chronic heart failure Re sults for AM HUMAN RESOURCES ADMIN with preserved this procedur e ejection fraction are in the results section. FACTOR 5 LEIDEN Routine 08/24/2019 11:12 Other elevated white Results for AM HUMAN RESOURCES ADMIN blood cell (WBC) this proced ure count are in the Iron deficiency results anemia, unspecified section. iron deficiency anemia type Chronic diastolic congestive heart failure Stage 2 chronic kidney disease Pulmonary embolism, unspecified chronicity, unspecified pulmonary embolism type, unspecified whether acute cor pulmonale present FACTOR 2 [id number] Routine 08/24/2019 11:12 Other elevated white Results for MUTATION AM HUMAN RESOURCES ADMIN blood cell (WBC) this proced ure count are in the Iron deficiency results anemia, unspecified section. iron deficiency anemia type Chronic diastolic congestive heart failure Stage 2 chronic kidney disease Pulmonary embolism, unspecified chronicity, unspecified pulmonary embolism type, unspecified whether acute cor pulmonale present ANTITHROMBIN ACTIVITY Routine 08/24/2019 11:12 Other elevated white Results for AM HUMAN RESOURCES ADMIN blood cell (WBC) this proced ure count are in the Iron deficiency results anemia, unspecified section. iron deficiency anemia type Chronic diastolic congestive heart failure Stage 2 chronic kidney disease Pulmonary embolism, unspecified chronicity, unspecified pulmonary embolism type, unspecified whether acute cor pulmonale present PROTEIN S ACTIVITY Routine 08/24/2019 11:12 Other elevated whi te Results for AM HUMAN RESOURCES ADMIN blood cell (WBC) this proced ure count are in the Iron deficiency results anemia, unspecified section. iron deficiency anemia type Chronic diastolic congestive heart failure Stage 2 chronic kidney disease Pulmonary embolism, unspecified chronicity, unspecified pulmonary embolism type, unspecified whether acute cor pulmonale present PROTEIN C ACTIVITY Routine 08/24/2019 11:12 Other elevated whi te Results for AM HUMAN RESOURCES ADMIN blood cell (WBC) this proced ure count are in the Iron deficiency results anemia, unspecified section. iron deficiency anemia type Chronic diastolic congestive heart failure Stage 2 chronic kidney disease Pulmonary embolism, unspecified chronicity, unspecified pulmonary embolism type, unspecified whether acute cor pulmonale present PROTEIN C ANTIGEN Routine 08/24/2019 11:12 Other elevated whit e Results for AM HUMAN RESOURCES ADMIN blood cell (WBC) this proced ure count are in the Iron deficiency results anemia, unspecified section. iron deficiency anemia type Chronic diastolic congestive heart failure Stage 2 chronic kidney disease Pulmonary embolism, unspecified chronicity, unspecified pulmonary embolism type, unspecified whether acute cor pulmonale present FACTOR 2 [id number] Routine 08/24/2019 11:12 Other elevated white Results for MUTATION AM HUMAN RESOURCES ADMIN blood cell (WBC) this proced ure count are in the Iron deficiency results anemia, unspecified section. iron deficiency anemia type Chronic diastolic congestive heart failure Stage 2 chronic kidney disease Pulmonary embolism, unspecified chronicity, unspecified pulmonary embolism type, unspecified whether acute cor pulmonale present BASIC METABOLIC PANEL Routine 08/24/2019 11:12 Chronic heart f ailure Results for (NA, K, CL, CO2, AM HUMAN RESOURCES ADMIN with preserved this proc edure GLUCOSE, BUN, ejection fraction are in th e CREATININE, CA) results section. HOSPITAL ADMISSION Routine 08/24/2019 12:01 AM HUMAN RESOURCES ADMIN AUTHORIZATION FOR Routine 08/24/2019 12:01 RELEASE OF PHI AM HUMAN RESOURCES ADMIN PATIENT QUESTIONNAIRE Routine 08/24/2019 12:01 AM HUMAN RESOURCES ADMIN AUTHORIZATION FOR Routine 08/23/2019 12:01 RELEASE OF PHI AM HUMAN RESOURCES ADMIN POCT GLUCOSE Routine 08/19/2019 10:56 Results for (AUTOMATED) AM HUMAN RESOURCES ADMIN this procedure are in the results section. POCT GLUCOSE Routine 08/19/2019 7:12 Results for (AUTOMATED) AM HUMAN RESOURCES ADMIN this procedure are in the results section. MAGNESIUM Routine 08/19/2019 3:21 Results for AM HUMAN RESOURCES ADMIN this procedure are in the results section. N-TERMINAL PRO-BNP Routine 08/19/2019 3:21 Resul ts for AM HUMAN RESOURCES ADMIN this procedure are in the results section. PROTHROMBIN TIME / Routine 08/19/2019 3:21 Resul ts for INR AM HUMAN RESOURCES ADMIN this procedure are in the results section. BASIC METABOLIC PANEL Routine 08/19/2019 3:21 Re sults for (NA, K, CL, CO2, AM HUMAN RESOURCES ADMIN this proced ure GLUCOSE, BUN, are in the CREATININE, CA) results section. POCT GLUCOSE Routine 08/18/2019 7:29 Results for (AUTOMATED) PM HUMAN RESOURCES ADMIN this procedure are in the results section. POCT GLUCOSE Routine 08/18/2019 4:17 Results for (AUTOMATED) PM HUMAN RESOURCES ADMIN this procedure are in the results section. BASIC METABOLIC PANEL Routine 08/18/2019 2:39 Re sults for (NA, K, CL, CO2, PM HUMAN RESOURCES ADMIN this proced ure GLUCOSE, BUN, are in the CREATININE, CA) results section. BASIC METABOLIC PANEL Routine 08/18/2019 11:37 Re sults for (NA, K, CL, CO2, AM HUMAN RESOURCES ADMIN this proced ure GLUCOSE, BUN, are in the CREATININE, CA) results section. POCT GLUCOSE Routine 08/18/2019 11:11 Results for (AUTOMATED) AM HUMAN RESOURCES ADMIN this procedure are in the results section. POCT GLUCOSE Routine 08/18/2019 7:32 Results for (AUTOMATED) AM HUMAN RESOURCES ADMIN this procedure are in the results section. N-TERMINAL PRO-BNP Add-on 08/18/2019 3:33 Resul ts for AM HUMAN RESOURCES ADMIN this procedure are in the results section. MAGNESIUM Routine 08/18/2019 3:33 Results for AM HUMAN RESOURCES ADMIN this procedure are in the results section. PROTHROMBIN TIME / Routine 08/18/2019 3:33 Resul ts for INR AM HUMAN RESOURCES ADMIN this procedure are in the results section. CBC WITH DIFFERENTIAL Routine 08/18/2019 3:33 Re sults for AM HUMAN RESOURCES ADMIN this procedure are in the results section. BASIC METABOLIC PANEL Routine 08/18/2019 3:33 Re sults for (NA, K, CL, CO2, AM HUMAN RESOURCES ADMIN this proced ure GLUCOSE, BUN, are in the CREATININE, CA) results section. CBC WITH DIFFERENTIAL Routine 08/18/2019 3:33 Re sults for AM HUMAN RESOURCES ADMIN this procedure are in the results section. POCT GLUCOSE Routine 08/17/2019 8:22 Results for (AUTOMATED) PM HUMAN RESOURCES ADMIN this procedure are in the results section. POCT GLUCOSE Routine 08/17/2019 5:51 Results for (AUTOMATED) PM HUMAN RESOURCES ADMIN this procedure are in the results section. PROTHROMBIN TIME / STAT 08/17/2019 4:41 Hypokalemia Resul ts for INR PM HUMAN RESOURCES ADMIN this procedure are in the results section. EKG-12 LEAD Routine 08/17/2019 4:16 PM HUMAN RESOURCES ADMIN GLYCOSYLATED Add-on 08/17/2019 4:06 Results for HEMOGLOBIN (A1C) PM HUMAN RESOURCES ADMIN this proced ure are in the results section. CBC WITH DIFFERENTIAL STAT 08/17/2019 4:06 Hypokalemia Re sults for PM HUMAN RESOURCES ADMIN this procedure are in the results section. COMP. METABOLIC PANEL STAT 08/17/2019 4:06 Hypokalemia Re sults for ([id number]) PM HUMAN RESOURCES ADMIN this procedure are in the results section. MAGNESIUM STAT 08/17/2019 4:06 Hypokalemia Results for PM HUMAN RESOURCES ADMIN this procedure are in the results section. CBC WITH DIFFERENTIAL STAT 08/17/2019 4:06 Hypokalemia Re sults for PM HUMAN RESOURCES ADMIN this procedure are in the results section. EKG-12 LEAD Routine 08/17/2019 3:59 PM HUMAN RESOURCES ADMIN CONSENT/REFUSAL FOR Routine 08/17/2019 3:28 DIAGNOSIS AND PM HUMAN RESOURCES ADMIN TREATMENT BASIC METABOLIC PANEL Routine 08/17/2019 8:16 Chronic heart f ailure Results for (NA, K, CL, CO2, AM HUMAN RESOURCES ADMIN with preserved this proc edure GLUCOSE, BUN, ejection fraction are in th e CREATININE, CA) results section. HOSPITAL ADM - MISC Routine 08/17/2019 12:01 AM HUMAN RESOURCES ADMIN HOSPITAL ADMISSION Routine 08/17/2019 12:01 AM HUMAN RESOURCES ADMIN AGREEMENTS Routine 08/17/2019 12:01 AUTHORIZATIONS AND AM HUMAN RESOURCES ADMIN IRREVOCABLE ASSIGNMENTS (FORM 2001) POCT Routine 08/13/2019 Other pulmonary Results for PT/INR(COAGUCHEK) embolism without this p rocedure acute cor pulmonale, are in the unspecified results chronicity section. BASIC METABOLIC PANEL Routine 08/10/2019 8:47 Chronic heart f ailure Results for (NA, K, CL, CO2, AM HUMAN RESOURCES ADMIN with preserved this proc edure GLUCOSE, BUN, ejection fraction are in th e CREATININE, CA) results section. AGREEMENTS Routine 08/10/2019 12:01 AUTHORIZATIONS AND AM HUMAN RESOURCES ADMIN IRREVOCABLE ASSIGNMENTS (FORM 2001) TROPONIN I STAT 08/08/2019 5:34 Chest pain, Results for PM HUMAN RESOURCES ADMIN unspecified type this proced ure are in the results section. PROTHROMBIN TIME / STAT 08/08/2019 4:32 Chest pain, Resul ts for INR PM HUMAN RESOURCES ADMIN unspecified type this proced ure are in the results section. EKG-12 LEAD Routine 08/08/2019 3:27 PM HUMAN RESOURCES ADMIN CBC WITH DIFFERENTIAL STAT 08/08/2019 3:21 Chest pain, Re sults for PM HUMAN RESOURCES ADMIN unspecified type this proced ure are in the results section. N-TERMINAL PRO-BNP STAT 08/08/2019 3:21 Chest pain, Resul ts for PM HUMAN RESOURCES ADMIN unspecified type this proced ure are in the results section. TROPONIN I STAT 08/08/2019 3:21 Chest pain, Results for PM HUMAN RESOURCES ADMIN unspecified type this proced ure are in the results section. COMP. METABOLIC PANEL STAT 08/08/2019 3:21 Chest pain, Re sults for ([id number]) PM HUMAN RESOURCES ADMIN unspecified type this proced ure are in the results section. CBC WITH DIFFERENTIAL STAT 08/08/2019 3:21 Chest pain, Re sults for PM HUMAN RESOURCES ADMIN unspecified type this proced ure are in the results section. XR CHEST 2 VW STAT 08/08/2019 3:13 Chest pain, Results fo r PM HUMAN RESOURCES ADMIN unspecified type this proced ure are in the results section. EKG-12 LEAD Routine 08/08/2019 2:55 PM HUMAN RESOURCES ADMIN CONSENT/REFUSAL FOR Routine 08/08/2019 2:18 DIAGNOSIS AND PM HUMAN RESOURCES ADMIN TREATMENT EMERGENCY SERVICES Routine 08/08/2019 12:01 AGREEMENTS AND AM HUMAN RESOURCES ADMIN AUTHORIZATIONS BASIC METABOLIC PANEL Routine 08/06/2019 8:50 Chronic heart f ailure Results for (NA, K, CL, CO2, AM HUMAN RESOURCES ADMIN with preserved this proc edure GLUCOSE, BUN, ejection fraction are in th e CREATININE, CA) results section. AGREEMENTS Routine 08/06/2019 12:01 AUTHORIZATIONS AND AM HUMAN RESOURCES ADMIN IRREVOCABLE ASSIGNMENTS (FORM 2001) from Last 3 Months Results TROPONIN I (10/26/2019 9:19 PM CDT)Only the most recent of7 resultswithin the time period is included. Pathologist Sig nature TROPONIN I <0.012 <=0.034 ng/mL [facility] Specimen Blood - VENOUS Narrative Performed At Equal or Less than 0.034 ng/ml---Normal [facility] Note: Cardiac troponin begins to [...] Performing Organization Address [facility] Phone Number [facility] CLIA: [id number], [address] [place] [address] [address] CORONAVIRUS COVID-19 TESTING (10/26/2019 7:40 PM CDT)Only the most recent of2 resultswithin the time period is included. 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 It is used under Emergency Use [...] testing if clinically indicated. Performing Organization Address [facility] Cent[facility]ode Phone Number [facility] CLIA: [id number], [address] URINALYSIS (10/26/2019 7:40 PM CDT) Pathologist Sig nature APPEARANCE Clear Clear [facility] COLOR Yellow Yellow [facility] PH 7.0 4.8 - 8.0 [facility] SP GRAVITY 1.009 1.003 - 1.030 [facility] GLU U QUAL Normal Normal [facility] BLOOD Negative Negative [facility] KETONES Negative Negative [facility] PROTEIN Negative Negative [facility] UROBILIN Normal Normal [facility] BILIRUBIN Negative Negative [facility] NITRITE Negative Negative [facility] LEUK TRE Negative Negative [facility] RBC/HPF <1 0 - 3 HPF [facility] WBC/HPF 1 0 - 5 HPF [facility] BACTERIA Negative Negative [facility] MUCOUS Slight (A) Negative LPF [facility] SQ EPITH <1 HPF [facility] Specimen Urine - URINE, CLEAN CATCH Performing Organization Address City/State/Zipcode Phone Number [facility] CLIA: [id number], [address] CBC WITH DIFFERENTIAL (10/26/2019 7:37 PM CDT)Only the most recent of7 results within the time period is included. Pathologist Sig nature WBC 12.80 (H) 4.20 - 10.70 [facility] 10*3/L [facility] RBC 5.43 4.26 - 5.52 [facility] 10*6/L [facility] HGB 13.2 12.2 - 16.4 [facility] g/dL [facility] HCT 40.8 38.4 - 49.3 % [facility] MCV 75.1 (L) 81.7 - 95.6 fL [facility] MCH 24.3 (L) 26.1 - 32.7 pg [facility] MCHC 32.4 31.2 - 35.0 [facility] g/dL [facility] RDW-SD 46.2 38.5 - 51.6 fL [facility] RDW-CV 17.4 (H) 12.1 - 15.4 % [facility] PLT 301 150 - 328 [facility] 10*3/L [facility] MPV 9.4 (L) 9.8 - 13.0 fL [facility] NRBC/100 WBC 0.0 0.0 - 10.0 /100 [facility] WBCs HOSPITAL LAB[facility]ORY NRBC x10^3 <0.01 10*3/L [facility] GRAN MAT (NEUT) % 76.7 % [facility] IMM GRAN % 0.70 % [facility] LYMPH % 14.9 % [facility] MONO % 6.7 % [facility] EOS % 0.7 % [facility] BASO % 0.3 % [facility] GRAN MAT x10^3(ANC) 9.81 (H) 1.99 - 6.95 [facility] 10*3/uL HOSPITAL LAB[facility]ORY IMM GRAN x10^3 0.09 (H) 0.00 - 0.06 [facility] 10*3/uL [facility] LYMPH x10^3 1.91 1.09 - 3.23 [facility] 10*3/uL [facility] MONO x10^3 0.86 0.36 - 1.02 [facility] 10*3/uL HOSPITAL LAB[facility]ORY EOS x10^3 0.09 0.06 - 0.53 [facility] 10*3/uL [facility] BASO x10^3 0.04 0.01 - 0.09 [facility] 10*3/uL [facility] Specimen Blood - VENOUS Performing Organization Address City/State/Zipcode Phone Number [facility] CLIA: [id number], [address], [place] [address] N-TERMINAL PRO-BNP (10/26/2019 7:37 PM CDT)Only the most recent of8 results within the time period is included. Pathologist Sig nature NT-proBNP 41 <=125 pg/mL [facility] Specimen Blood - VENOUS Narrative Performed At Biotin has been reported to cause a negative [facility] bias, interpret results relative to patient's use of biotin. Performing Organization Address City/State/Zipcode Phone Number [facility] CLIA: [id number], [address], [place] [address] D-DIMER (10/26/2019 7:37 PM CDT) Pathologist Sig nature D-DIMER <0.27 <0.41 g/mL (FEU) [facility] Specimen Blood - VENOUS Narrative Performed At This test may be used in conjunction with a [facility] clinical pretest probability (PTP) assessment [...] in forming a diagnosis. Performing Organization Address City/[facility] Centercode Phone Number [facility] CLIA: [id number], [address] [place] [address] PROTHROMBIN TIME / INR (10/26/2019 7:37 PM CDT)Only the most recent of8 results within the time period is included. [facility] Signature PROTIME PATIENT 22.2 (H) 12.0 - 14.7 [facility] Seconds [facility] INR 2.0Comment: Normal [facility] INR <1.1; Warfarin [facility] Therapeutic range LABORATORY 2.0 to 3.0 or 2.5 to 3.5, depending upon the indications. Specimen Blood - VENOUS Performing Organization Address City/[facility] Centercode Phone Number [facility] CLIA: [id number], [address] COMP. METABOLIC PANEL ([id number]) (10/26/2019 7:37 PM CDT)Only the most recent of4 resultswithin the time period is included. Pathologist Sig nature NA 137 135 - 145 [facility] mmol/L [facility] K 3.7 3.5 - 5.0 [facility] mmol/L [facility] CL 93 (L) 98 - 108 mmol/L [facility] CO2 TOTAL 36 (H) 23 - 31 mmol/L [facility] AGAP 8 2 - 16 [facility] BUN 21 7 - 23 mg/dL [facility] GLUCOSE 134 (H) 70 - 110 mg/dL [facility] CREATININE 1.22 0.60 - 1.25 [facility] mg/dL [facility] TOTAL BILI 0.6 0.1 - 1.1 mg/dL [facility] CALCIUM 10.3 8.6 - 10.6 [facility] mg/dL [facility] T PROTEIN 8.5 (H) 6.3 - 8.2 g/dL [facility] ALBUMIN 4.4 3.5 - 5.0 g/dL [facility] ALK PHOS 110 34 - 122 U/L [facility] ALTv 27 5 - 50 U/L [facility] AST(SGOT) 35 13 - 40 U/L [facility] eGFR Calculation 62.9 mL/min/1.73m2 [facility] ([facility] LAB[facility]ATORY Russian) eGFR Calculation 76.2 mL/min/1.73m2 [facility] ([facility]) [facility] Specimen Blood - VENOUS [...] Address City/State/Zipcode Phone Number [facility] CLIA: [id number], [address] [place] [address] MAGNESIUM (10/26/2019 7:37 PM CDT)Only the most recent of9 resultswithin the time period is included. Pathologist Sig nature MAGNESIUM 1.9 1.7 - 2.4 mg/dL [facility] Specimen Blood - VENOUS Performing Organization Address [facility] Phone Number [facility] CLIA: [id number], [address] [place] [address] LIPASE (10/26/2019 7:37 PM CDT) Pathologist Sig nature LIPASE 36 0 - 220 U/L [facility] Specimen Blood - VENOUS Performing Organization Address [facility] Phone Number [facility] CLIA: [id number], [address] [place] [address] XR CHEST 1 VW COVID (10/26/2019 7:31 PM CDT)Only the most recent of2 results within the time period is included. Specimen Impressions Performed At PACS/VR/DOSE Mild pulmonary vascular congestion. No r adiographic findings typical of COVID-19 pneumonia. Disclaimer: Generally, the findings on c hest imaging in COVID-19 are not specific, and overlap with other infecti ons, including influenza, H1N1, SARS and MERS. According to the Centers for Disease Control (CDC) and the [employer], viral testing remains the [...] for Disease Con trol (CDC) and the [employer], viral testing remains the only specific method of diagnosis even if CXR or CT findings are suggestiv e of COVID-19. Preliminary Report Dictated by Resident: Russ Persaud I, Shayna Bautista MD., have reviewed this study and agree with the above report. Performing Organization Address [facility]ercotx Phone Number PACS/VR/DOSE EKG-12 LEAD (10/26/2019 6:26 PM CDT) Specimen Performing Organization Address [facility] Phone Number [facility] AGREEMENTS AND AUTHORIZATIONS (10/26/2019 12:01 AM CDT)Only the most recent of2 resultswithin the time period is included. Specimen Performing Organization Address [facility] Phone Number [facility] POCT GLUCOSE (AUTOMATED) (10/12/2019 11:03 AM CDT)Only the most recent of14 resultswithin the time period is included. Pathologist Sig nature POCT GLU 170 (H) 70 - 110 mg/dL [facility] Specimen Blood Performing Organization Address [facility] Phone Number [facility] CLIA: [id number], [address], [place] [address] BASIC METABOLIC PANEL (NA, K, CL, CO2, GLUCOSE, BUN, CREATININE, CA) (10/12/2019 4:04 AM CDT)Only the most recent of16 resultswithin the time period is included. NA 137 135 - 145 [facility] mmol/L HOSPITAL LABORATORY K 3.5 3.5 - 5.0 [facility] mmol/L [facility] CL 100 98 - 108 mmol/L [facility] CO2 TOTAL 32 (H) 23 - 31 mmol/L [facility] AGAP 5 2 - 16 [facility] BUN 18 7 - 23 mg/dL [facility] GLUCOSE 121 (H) 70 - 110 mg/dL [facility] CREATININE 1.27 (H) 0.60 - 1.25 [facility] mg/dL [facility] CALCIUM 9.6 8.6 - 10.6 [facility] mg/dL [facility] eGFR Calculation 60.0 mL/min/1.73m2 [facility] ([facility] [place]) eGFR Calculation 72.8 mL/min/1.73m2 [facility] () [facility] Specimen Blood - ARM, [...] abnormalities in imaging tests). Performing Organization Address City/[facility]/Zipcode Phone Number [facility] CLIA: [id number], [address] aPTT (10/11/2019 4:58 PM CDT) [facility] APTT Patient 51 (H) 23 - 38 Seconds [facility] Specimen Blood - ARM, RIGHT Narrative Performed At The [facility] patient population mean normal value [facility] for aPTT is 30 seconds. Performing Organization Address City/[facility]/Zipcode Phone Number [facility] CLIA: [id number], [address], [place] [address] Hepatic Function Panel (ALB, T.PRO, BILI T, BU/BC, ALT, AST, ALK PHOS) (10/11/2019 4:58 PM CDT) Pathologist Sig nature TOTAL BILI 0.5 0.1 - 1.1 mg/dL [facility] BILI UNCON 0.5 0.1 - 1.1 mg/dL [facility] BILI CONJ 0.0 0.0 - 0.3 mg/dL [facility] T PROTEIN 8.2 6.3 - 8.2 g/dL [facility] ALBUMIN 4.3 3.5 - 5.0 g/dL [facility] ALK PHOS 118 34 - 122 U/L [facility] ALTv 33 5 - 50 U/L [facility] AST(SGOT) 26 13 - 40 U/L [facility] Specimen Blood - ARM, RIGHT Performing Organization Address City/State/Zipcode Phone Number [facility] CLIA: [id number], [address], [place] [address] EKG-12 LEAD (10/11/2019 3:21 PM CDT) Specimen Performing Organization Address City/State/Zipcode Phone Number [facility] CONSENT/REFUSAL FOR DIAGNOSIS AND TREATMENT (10/11/2019 3:09 PM CDT)Only the most recent of5 resultswithin the time period is included. Specimen Performing Organization Address City/State/Zipcode Phone Number [facility] HOSPITAL ADMISSION (10/11/2019 12:01 AM CDT)Only the most recent of3 results within the time period is included. Specimen Performing Organization Address City/State/Zipcode Phone Number [facility] HOSPITAL ADM - MISC (10/11/2019 12:01 AM CDT)Only the most recent of2 results within the time period is included. Specimen Performing Organization Address City/State/Zipcode Phone Number [facility] AGREEMENTS AUTHORIZATIONS AND IRREVOCABLE ASSIGNMENTS (FORM 2000) (09/16/2019 12:01 AM CDT)Only the most recent of5 resultswithin the time period is included. Specimen Performing Organization Address City/State/Zipcode Phone Number [facility] ASSIGNMENT OF BENEFITS (09/11/2019 8:50 AM CDT) Specimen Performing [facility] Phone Number [facility] POCT PT/INR(COAGUCHEK) (09/06/2019)Only the most recent of3 resultswithin the time period is included. Pathologist Sig nature POCT PT/INR 2.3 (A) 0.8 - 1.4 INR POCT PT/SEC 27.0 SEC Specimen Blood - CAPILLARY PACEMAKER DEVICE CHECK (08/30/2019 3:00 AM CDT) Specimen Performing Organization [facility] Phone Number EP CONSENT TO CONTACT FOR VOLUNTARY RESEARCH (08/27/2019 2:52 PM HUMAN RESOURCES ADMIN) Pathologist Sig [facility] Consent To Contact For Voluntary Yes HIM Research Specimen Performing [facility] Phone Number [facility] EKG-12 LEAD (08/24/2019 3:19 PM HUMAN RESOURCES ADMIN) Specimen Performing [facility] Phone Number [facility] NOTICE OF PRIVACY PRACTICES (08/24/2019 3:04 PM HUMAN RESOURCES ADMIN) Specimen Performing [facility] Phone Number [facility] PROTEIN S ACTIVITY (08/24/2019 11:12 AM HUMAN RESOURCES ADMIN) Pathologist Sig [facility] PROTEIN S ACTIVITY 79 64 - 149 % [facility] LABORAT[facility] SERVIC ES Specimen Blood - ARM, LEFT Narrative Performed At Age and hormonal status may affect the normal range fo r [facility] SERVICES females (particularly during ). Test should n ot be ordered in patients on Coumadin as it can decrease Pro tein C and S levels. Additional studies should be conducted t o determine the source of unexpected abnormal results. Performing Organization Address [facility] Phone Number [facility] CLIA: [id number], [address] [place], [place] [address] [facility] PROTEIN C ACTIVITY (08/24/2019 11:12 AM HUMAN RESOURCES ADMIN) Pathologist Sig [facility] PROTEIN C ACTIVITY 52 (L) 70 - 140 % [facility] SERVIC ES Specimen Blood - ARM, LEFT Narrative Performed At Test should not be ordered in patients on Coumadin as it can [facility] decrease Protein C and S levels. Protein C activity is low in neonates and infants and increases to adult levels during adolescence. Additional studies should be conducted to determine the source of unexpected abnormal results. Performing Organization Address City/State/Zipcode Phone Number [facility] CLIA: [id number], [address] [place] [address] [facility] ANTITHROMBIN ACTIVITY (08/24/2019 11:12 AM HUMAN RESOURCES ADMIN) Pathologist Sig nature ANTITHROMBIN ACTIVITY 99 83 - 128 % [facility] SER VICES Specimen Blood - ARM, LEFT Performing Organization Address City/[facility] Centercode Phone Number [facility] CLIA: [id number], [address] [place], [place] [address] [facility] FACTOR 2 [id number] MUTATION (08/24/2019 11:12 AM HUMAN RESOURCES ADMIN) Pathologist Sig [facility] Factor 2 [id number] Normal Normal [facility] Mutation SERVICES Specimen Blood - ARM, LEFT Narrative Performed At Phenotype Characteristics: 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 Incidence: Approximately 2-5 percent of Caucasians and 0.3 percent of Americans are heterozygous; about 1 in 10,000 individuals are homozygous with two copies of t he mutation. Inheritance: Autosomal dominant. Penetrance: The risk of thrombosis is increased 2-4 fo ld for heterozygotes and further increased for homozygotes. 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 Clinical Sensitivity for Venous Thrombosis: Approximat jojo 10%. Methodology: Polymerase chain reaction and fluorescenc e monitoring Limitations: The performance of this assay has not bee n evaluated with samples from pediatric ny tients. Counseling and informed consent are recommended for [facility] testing. References: OMIM: [id number] https://ghr.nlm.nih.gov/condition/prothr ombin-thrombophilia Performing Organization Address City/[facility]/Zipcode Phone Number [facility] SERVICES CLIA: [id number], [address] [place] [address] [facility] FACTOR 5 LEIDEN (08/24/2019 11:12 AM HUMAN RESOURCES ADMIN) Pathologist Sig nature FACTOR 5 LEIDEN Normal Normal [facility] SERVICES Specimen Blood - ARM, LEFT Narrative Performed At Phenotype Characteristics: Thrombophilia due to mutati on of [facility] SERVICES coagulation factor 5 (F5) leading [...] 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 Methodology: Polymerase chain reaction and fluorescenc e monitoring. Limitations: Rare Factor V mutations ([id number], [id number], and [id number]) and any additional SNPs in the probe binding r egion may interfere with the target detection and yield an I NVALID result. The performance of this assay has not been bret luated with samples from pediatric patients. Counseling and informed consent are recommended for [facility] testing. References: OMIM: [id number] https://ghr.nlm.nih.gov/condition/ssbgey-f-qxhzcy-thro garrett abby Performing Organization Address [facility] Phone Number [facility] CLIA: [id number], [address] [place] [address] [phone] [facility] PROTEIN C ANTIGEN (08/24/2019 11:12 AM HUMAN RESOURCES ADMIN) Protein C See scanned ANTIPHOSPHOLIPID (Antigen) report [facility]AT. Specimen Blood - ARM, LEFT Narrative Performed At This result has an attachment that is no t available. Performing Organization Address [facility] Phone Number ANTIPHOSPHOLIPID [address] [place] [address] [facility] LABORAT. [address] [employer] [address] AUTHORIZATION FOR RELEASE OF PHI (08/24/2019 12:01 AM HUMAN RESOURCES ADMIN)Only the most recent of2 resultswithin the time period is included. Specimen Performing Organization Address City/State/Zipcode Phone Number [facility] PATIENT QUESTIONNAIRE (08/24/2019 12:01 AM HUMAN RESOURCES ADMIN) Specimen Performing Organization Address [facility]/Zipcode Phone Number HIM EKG-12 LEAD (08/17/2019 4:16 PM HUMAN RESOURCES ADMIN) Specimen Performing Organization Address [facility]/Zipcode Phone Number HST GLYCOSYLATED HEMOGLOBIN (A1C) (08/17/2019 4:06 PM HUMAN RESOURCES ADMIN) Pathologist Sig nature HGB A1C 7.8 (H) 4.0 - 6.0 % NGSP [facility] LABOR[facility]ORY Specimen Blood - VENOUS Narrative Performed At %A1C (NGSP) Interpretation (ADA) [facility] LABORATORY 4.8-5.6 Normal or (Non-Diabetic Ra nge) 5.7-6.4 Increased Risk (Pre-Diabet ic) >6.5 Diabetes Indicated Performing Organization Address City/State/Zipcode Phone Number [facility] CLIA: [id number], [address] [place], [place] [address] EKG-12 LEAD (08/08/2019 3:27 PM HUMAN RESOURCES ADMIN) Specimen Performing Organization Address City/State/[facility] Phone Number HST XR CHEST 2 VW (08/08/2019 3:13 PM HUMAN RESOURCES ADMIN) Specimen Impressions Performed At No acute cardiopulmonary disease PACS/VR/DOSE RL: 501 AFC: [id number] End of report 3 :27 PM Narrative Performed At ORDERING CLINICIAN: HAFSA MELVIN PACS/VR/DOSE TECHNIQUE: 2 views of the [...] Results Inft User - 2019 3:28 PM HUMAN RESOURCES ADMIN ORDERING CLINICIAN: HAFSA MELVIN TECHNIQUE: 2 views of the chest [...] No acute cardiopulmonary disease RL: 501 AFC: [id number] End of report Performing Organization Address City/State/Zipcode Phone Number PACS/VR/DOSE from Last 3 Months Insurance Payer Benefit Plan / Subscriber ID Effective Phone Address T ype Group Dates [employer] [id number] 2017-[employer] [phone] HMO HEALTH [employer] [facility] [phone] [place] [address] (Home) [place] [address] Advance Directives Name Relationship Healthcare Agent Communication Relationship Keaton Leslie Spouse Primary healthcare agent Elisabeth Soliz Sibling [facility] healthcare agent (Mobile)
--- OUTSIDE RECORDS SUMMARY | 2019-11-07 22:59 | XMS REPORT | Clinical Summary ---
:1970 Author Organization [facility] Address [address] [place] [id number] Care Team Providers Name Role Phone Elmer Andrade MD Primary Care Provider NAVJOT Espinoza Unavailable Unavailable MD Rocco Unavailable Mary Quezada MD Unavailable Genna Anand Unavailable Unavailable MD Casimiro Unavailable Ricardo Rodriguez DO Frame Repairer Allergies Active Allergy Reactions Severity Noted Date [...] for Nausea Hyperglycemia and Vomiting (N/V). Insulin [place], Disposable, Use as directed, 1x 100 Each [...] Added automatically from request for lillian lawson [id number] Syncope 04/01/2017 Chest pain, rule out acute [...] Chest pain 06/12/2016 Coronary artery disease involving [place] coronary briseyda ry of [place] heart 06/12/2016 with angina pectoris [place] (myocardial [...] 10/11/2019 Travel 10/11/2019 Orders Only Doctor Unassigned, [place] 10/11/2019 Telephone Cardiology Erasmo Adkins MD 10/08/2019 Travel 10/07/2019 Refill Cardiology Al Valiente Refottoniel merritt MD 09/16/2019 Mortgage Specialist Visit Phlebotomy Vonda Kaur Chronic farzad FILIBERTO Keenan heart failure 2, [facility] 09/16/2019 Telephone Cardiology Vonda Kaur Results FILIBERTO [place] 09/13/2019 Telephone Cardiology Erasmo Adkins MD 09/12/2019 Nurse Triage Catherine TalaveraED; Daniel Acosta RN 09/11/2019 Mortgage Specialist Visit Phlebotomy Sharon Andrade MD Pob, [facility] Lab Main 09/11/2019 Orders Only Doctor Unassigned, [place] 09/10/2019 Refill Endocrinology Diabetes Zhen Jones, Refi ll Request & Metabolism MD 09/09/2019 Telemedicine Visit Internal Medicine Janell Andrade (Primary Dx); Lilibeth Payne, Nail problem; Dry skin; Memory problem; Anxiety 09/06/2019 Nurse Visit Anti-coagulation Andrade, Anticoagula tion management encounter; Clinic Lilibeth A, Other pulmonary embolism without acute cor pulmonale, unspecified chronicity Nurse, [facility] 08/31/2019 Mortgage Specialist Visit Phlebotomy Vonda Kaur FNP heart failure [...] without acute cor pulmonale, unspecified chronicity Nurse, [facility] Antico 08/27/2019 Mortgage Specialist Visit Phlebotomy Maye Mccarty MD heart failure [facility] 08/27/2019 Office Visit Cardiology Vonda Kaur Chronic diastol ic heart failure (Primary Dx); FILIBERTO [place] Vitamin B12 deficiency Practitioner, Heart Failure Nurse 08/27/2019 Telephone Cardiology Jed, LAB WORK Robert Breaux MD 08/26/2019 Telephone Cardiology Jed, Orders (lab ord ers); Robert Talk To Nurse MD Namita 08/24/2019 Emergency Medicine - Inpatient Wang, Hypokal emia - only Gaurav, 08/25/2019 Adal Moran MD 08/24/2019 Mortgage Specialist Visit Phlebotomy Aye, Chronic hea rt failure with preserved ejection fraction; MD Lincoln Other elevated white blood cell (WBC) co unt; [facility] Iron deficiency anemia, unspecified iron deficiency [...] Mcadams MD 08/23/2019 Orders Only Doctor Unassigned, [place] 08/20/2019 Telephone Cardiology Jed, Notification; Dina AB Fredim WORK MD Namita 08/17/2019 Emergency Medicine - Inpatient Socorro Reeves Acute h ypokalemia - only S, PAC 08/19/2019 Wallace Lea MD 08/17/2019 Mortgage Specialist Visit Phlebotomy Jed, Chronic hea rt failure Fredi with preserved MD Namita ejection fraction 2, [facility] 08/17/2019 Telephone Internal Medicine Rosanne Andrade on Lilibeth Payne MD 08/13/2019 Nurse Visit Anti-coagulation Lupe Anticoagula tion management encounter; Clinic Lilibeth Payne, Other pulmonary embolism without acute cor pulmonale, unspecified chronicity Nurse, [facility] Anticoag 08/11/2019 Telephone Cardiology Jed, Rx Concern/Ques tion; Robert LAB WORK MD Namita 08/10/2019 Office Visit Cardiology Jed, Chronic heart f ailure with preserved ejection fraction (Primary Dx); Robert Vitamin B12 def iciency MD Namita 08/10/2019 Mortgage Specialist Visit Phlebotomy Jed, Chronic hea rt failure Robert with preserved MD Namita ejection fraction 2, [facility] 08/10/2019 Orders Only Doctor Unassigned, [place] 08/09/2019 Telephone Cardiology Jed Orders Robert Breaux MD 08/09/2019 Telephone Cardiology Jed, Assessment Robert Breaux MD 08/08/2019 Emergency Emergency Medicine Drever, Hafsa Chest p ain, unspecified type (Primary Dx); G, TIRE MOUNTER Congestive hear t failure, unspecified HF chronicity, unspecified heart failure type; Acute on chroni c diastolic congestive heart failure; Anxiety; Angina at rest; Hypervolemia, u nspecified hypervolemia type; Pacemaker; SCHILLING (dyspnea on exertion); Essential hyper tension; Type 2 diabetes mellitus without complication, with long-term current use of insulin 08/06/2019 Mortgage Specialist Visit Phlebotomy Jed Chronic hea rt failure Robert with preserved MD Namita ejection fraction 2, [facility] 08/06/2019 Orders Only Doctor Unassigned, [place] 08/06/2019 Telephone Cardiology Jed, LAB WORK Robert [...] Nurse Visit Anti-coagulation Clinic Harley Johns MD [address] [place] [address] Nurse, [facility] Anticoag 11/30/2019 Office Visit Cardiology Practitioner, Heart Failure Nurse 12/02/2019 Appointment Cardiac Electrophysiology Ho Shukla MD [address] [place] [address] Outpt-Simi, Pacemaker/Icd 12/02/2019 Office Visit Oncology Lincoln Griffiths MD [address] [place] [address] 0 [phone] 12/06/2019 Office Visit Internal Medicine Lilibeth Andrade MD [address] [address] [phone] 12/08/2019 Office Visit Ophthalmology Yariel Tineo MD [address] [place] [address]. [place], [place] [address] 01/04/2020 Office Visit Internal Medicine Lilibeth Andrade MD [address] [address] 15 [phone] 02/07/2020 Office Visit Internal Medicine Lilibeth Andrade MD [address] [address] 15 [phone] 02/08/2020 Office Visit Cardiology Robert Adkins MD [address] [place], [place] [address] 02/22/2020 Office Visit Endocrinology Diabetes & Jones, Tre rodriguez MD Metabolism [address] [place], [place] [address] 03/07/2020 Office Visit Internal Medicine Lilibeth Andrade MD [address] [address] [phone] Health Maintenance Due Date Last Done Comments [...] 1980 (Not Indicated) Implants Implanted Type Area Weaving Inspector Device Shelf Model / Identifier Expiration Serial / Date Lot Prolene Mesh MESH Right: Ethicon 12/20/2020 PMSK / Implanted: Qty: 1 on 07/04/2016 by Alfonso Martinez MD at [facility] [employer] PMSK / [id number] Pacemaker PACEMAKER Stent-06/24/2016 Implanted: 06/24/2016 (Quantity not [...] 10/26/2019 7:37 Chest pain, Re sults for (22344) PM CDT unspecified type this proced ure [...] Chest pain in adult Results for PANEL (08239) PM CDT this procedure (ALB,T.PRO,BILI are in [...] Routine 09/11/2019 9:00 Hyperkalemia Re sults for (21629) AM CDT this procedure are in the [...] 2:52 Resul ts for FOR VOLUNTARY PM POWERHOUSE OPERATOR this procedure RESEARCH are in the results section. MAGNESIUM Routine 08/27/2019 11:54 Chronic diastolic Result s for AM POWERHOUSE OPERATOR heart failure this procedure are in the results section. N-TERMINAL PRO-BNP Routine 08/27/2019 11:54 Chronic diastolic Results for AM POWERHOUSE OPERATOR heart failure this procedure are in the results section. BASIC METABOLIC PANEL Routine 08/27/2019 11:54 Chronic diastol ic Results for (NA, K, CL, CO2, AM POWERHOUSE OPERATOR heart failure this proce dure GLUCOSE, BUN, are in the CREATININE, CA) results section. POCT Routine 08/27/2019 Anticoagulation Results for PT/INR(COAGUCHEK) management enc ounter this procedure Other pulmonary are in the embolism without results acute cor pulmonale, section . unspecified chronicity POCT GLUCOSE Routine 08/25/2019 4:17 Results for (AUTOMATED) PM POWERHOUSE OPERATOR this procedure are in the results section. BASIC METABOLIC PANEL Routine 08/25/2019 2:26 Re sults for (NA, K, CL, CO2, PM POWERHOUSE OPERATOR this proced ure GLUCOSE, BUN, are in the CREATININE, CA) results section. POCT GLUCOSE Routine 08/25/2019 11:11 Results for (AUTOMATED) AM POWERHOUSE OPERATOR this procedure are in the results section. POCT GLUCOSE Routine 08/25/2019 7:35 Results for (AUTOMATED) AM POWERHOUSE OPERATOR this procedure are in the results section. CBC WITH DIFFERENTIAL Routine 08/25/2019 4:05 Re sults for AM POWERHOUSE OPERATOR this procedure are in the results section. PROTHROMBIN TIME / Routine 08/25/2019 4:05 Resul ts for INR AM POWERHOUSE OPERATOR this procedure are in the results section. MAGNESIUM Routine 08/25/2019 4:05 Results for AM POWERHOUSE OPERATOR this procedure are in the results section. CBC WITH DIFFERENTIAL Routine 08/25/2019 4:05 Re sults for AM POWERHOUSE OPERATOR this procedure are in the results section. BASIC METABOLIC PANEL Routine 08/25/2019 4:05 Re sults for (NA, K, CL, CO2, AM POWERHOUSE OPERATOR this proced ure GLUCOSE, BUN, are in the CREATININE, CA) results section. BASIC METABOLIC PANEL STAT 08/25/2019 12:17 Re sults for (NA, K, CL, CO2, AM POWERHOUSE OPERATOR this proced ure GLUCOSE, BUN, are in the CREATININE, CA) results section. POCT GLUCOSE Routine 08/24/2019 8:34 Results for (AUTOMATED) PM POWERHOUSE OPERATOR this procedure are in the results section. EKG-12 LEAD Routine 08/24/2019 3:19 PM POWERHOUSE OPERATOR NOTICE OF PRIVACY Routine 08/24/2019 3:04 PRACTICES PM POWERHOUSE OPERATOR CONSENT/REFUSAL FOR Routine 08/24/2019 3:03 DIAGNOSIS AND PM POWERHOUSE OPERATOR TREATMENT MAGNESIUM Add-on 08/24/2019 11:12 Chronic heart failure Re sults for AM POWERHOUSE OPERATOR with preserved this procedur e ejection fraction are in the results section. FACTOR 5 LEIDEN Routine 08/24/2019 11:12 Other elevated white Results for AM POWERHOUSE OPERATOR blood cell (WBC) this proced ure count are in the Iron deficiency results anemia, unspecified section. iron deficiency anemia type Chronic diastolic congestive heart failure Stage 2 chronic kidney disease Pulmonary embolism, unspecified chronicity, unspecified pulmonary embolism type, unspecified whether acute cor pulmonale present FACTOR 2 [id number] Routine 08/24/2019 11:12 Other elevated white Results for MUTATION AM POWERHOUSE OPERATOR blood cell (WBC) this proced ure count are in the Iron deficiency results anemia, unspecified section. iron deficiency anemia type Chronic diastolic congestive heart failure Stage 2 chronic kidney disease Pulmonary embolism, unspecified chronicity, unspecified pulmonary embolism type, unspecified whether acute cor pulmonale present ANTITHROMBIN ACTIVITY Routine 08/24/2019 11:12 Other elevated white Results for AM POWERHOUSE OPERATOR blood cell (WBC) this proced ure count are in the Iron deficiency results anemia, unspecified section. iron deficiency anemia type Chronic diastolic congestive heart failure Stage 2 chronic kidney disease Pulmonary embolism, unspecified chronicity, unspecified pulmonary embolism type, unspecified whether acute cor pulmonale present PROTEIN S ACTIVITY Routine 08/24/2019 11:12 Other elevated whi te Results for AM POWERHOUSE OPERATOR blood cell (WBC) this proced ure count are in the Iron deficiency results anemia, unspecified section. iron deficiency anemia type Chronic diastolic congestive heart failure Stage 2 chronic kidney disease Pulmonary embolism, unspecified chronicity, unspecified pulmonary embolism type, unspecified whether acute cor pulmonale present PROTEIN C ACTIVITY Routine 08/24/2019 11:12 Other elevated whi te Results for AM POWERHOUSE OPERATOR blood cell (WBC) this proced ure count are in the Iron deficiency results anemia, unspecified section. iron deficiency anemia type Chronic diastolic congestive heart failure Stage 2 chronic kidney disease Pulmonary embolism, unspecified chronicity, unspecified pulmonary embolism type, unspecified whether acute cor pulmonale present PROTEIN C ANTIGEN Routine 08/24/2019 11:12 Other elevated whit e Results for AM POWERHOUSE OPERATOR blood cell (WBC) this proced ure count are in the Iron deficiency results anemia, unspecified section. iron deficiency anemia type Chronic diastolic congestive heart failure Stage 2 chronic kidney disease Pulmonary embolism, unspecified chronicity, unspecified pulmonary embolism type, unspecified whether acute cor pulmonale present FACTOR 2 [id number] Routine 08/24/2019 11:12 Other elevated white Results for MUTATION AM POWERHOUSE OPERATOR blood cell (WBC) this proced ure count are in the Iron deficiency results anemia, unspecified section. iron deficiency anemia type Chronic diastolic congestive heart failure Stage 2 chronic kidney disease Pulmonary embolism, unspecified chronicity, unspecified pulmonary embolism type, unspecified whether acute cor pulmonale present BASIC METABOLIC PANEL Routine 08/24/2019 11:12 Chronic heart f ailure Results for (NA, K, CL, CO2, AM POWERHOUSE OPERATOR with preserved this proc edure GLUCOSE, BUN, ejection fraction are in th e CREATININE, CA) results section. HOSPITAL ADMISSION Routine 08/24/2019 12:01 AM POWERHOUSE OPERATOR AUTHORIZATION FOR Routine 08/24/2019 12:01 RELEASE OF PHI AM POWERHOUSE OPERATOR PATIENT QUESTIONNAIRE Routine 08/24/2019 12:01 AM POWERHOUSE OPERATOR AUTHORIZATION FOR Routine 08/23/2019 12:01 RELEASE OF PHI AM POWERHOUSE OPERATOR POCT GLUCOSE Routine 08/19/2019 10:56 Results for (AUTOMATED) AM POWERHOUSE OPERATOR this procedure are in the results section. POCT GLUCOSE Routine 08/19/2019 7:12 Results for (AUTOMATED) AM POWERHOUSE OPERATOR this procedure are in the results section. MAGNESIUM Routine 08/19/2019 3:21 Results for AM POWERHOUSE OPERATOR this procedure are in the results section. N-TERMINAL PRO-BNP Routine 08/19/2019 3:21 Resul ts for AM POWERHOUSE OPERATOR this procedure are in the results section. PROTHROMBIN TIME / Routine 08/19/2019 3:21 Resul ts for INR AM POWERHOUSE OPERATOR this procedure are in the results section. BASIC METABOLIC PANEL Routine 08/19/2019 3:21 Re sults for (NA, K, CL, CO2, AM POWERHOUSE OPERATOR this proced ure GLUCOSE, BUN, are in the CREATININE, CA) results section. POCT GLUCOSE Routine 08/18/2019 7:29 Results for (AUTOMATED) PM POWERHOUSE OPERATOR this procedure are in the results section. POCT GLUCOSE Routine 08/18/2019 4:17 Results for (AUTOMATED) PM POWERHOUSE OPERATOR this procedure are in the results section. BASIC METABOLIC PANEL Routine 08/18/2019 2:39 Re sults for (NA, K, CL, CO2, PM POWERHOUSE OPERATOR this proced ure GLUCOSE, BUN, are in the CREATININE, CA) results section. BASIC METABOLIC PANEL Routine 08/18/2019 11:37 Re sults for (NA, K, CL, CO2, AM POWERHOUSE OPERATOR this proced ure GLUCOSE, BUN, are in the CREATININE, CA) results section. POCT GLUCOSE Routine 08/18/2019 11:11 Results for (AUTOMATED) AM POWERHOUSE OPERATOR this procedure are in the results section. POCT GLUCOSE Routine 08/18/2019 7:32 Results for (AUTOMATED) AM POWERHOUSE OPERATOR this procedure are in the results section. N-TERMINAL PRO-BNP Add-on 08/18/2019 3:33 Resul ts for AM POWERHOUSE OPERATOR this procedure are in the results section. MAGNESIUM Routine 08/18/2019 3:33 Results for AM POWERHOUSE OPERATOR this procedure are in the results section. PROTHROMBIN TIME / Routine 08/18/2019 3:33 Resul ts for INR AM POWERHOUSE OPERATOR this procedure are in the results section. CBC WITH DIFFERENTIAL Routine 08/18/2019 3:33 Re sults for AM POWERHOUSE OPERATOR this procedure are in the results section. BASIC METABOLIC PANEL Routine 08/18/2019 3:33 Re sults for (NA, K, CL, CO2, AM POWERHOUSE OPERATOR this proced ure GLUCOSE, BUN, are in the CREATININE, CA) results section. CBC WITH DIFFERENTIAL Routine 08/18/2019 3:33 Re sults for AM POWERHOUSE OPERATOR this procedure are in the results section. POCT GLUCOSE Routine 08/17/2019 8:22 Results for (AUTOMATED) PM POWERHOUSE OPERATOR this procedure are in the results section. POCT GLUCOSE Routine 08/17/2019 5:51 Results for (AUTOMATED) PM POWERHOUSE OPERATOR this procedure are in the results section. PROTHROMBIN TIME / STAT 08/17/2019 4:41 Hypokalemia Resul ts for INR PM POWERHOUSE OPERATOR this procedure are in the results section. EKG-12 LEAD Routine 08/17/2019 4:16 PM POWERHOUSE OPERATOR GLYCOSYLATED Add-on 08/17/2019 4:06 Results for HEMOGLOBIN (A1C) PM POWERHOUSE OPERATOR this proced ure are in the results section. CBC WITH DIFFERENTIAL STAT 08/17/2019 4:06 Hypokalemia Re sults for PM POWERHOUSE OPERATOR this procedure are in the results section. COMP. METABOLIC PANEL STAT 08/17/2019 4:06 Hypokalemia Re sults for (50672) PM POWERHOUSE OPERATOR this procedure are in the results section. MAGNESIUM STAT 08/17/2019 4:06 Hypokalemia Results for PM POWERHOUSE OPERATOR this procedure are in the results section. CBC WITH DIFFERENTIAL STAT 08/17/2019 4:06 Hypokalemia Re sults for PM POWERHOUSE OPERATOR this procedure are in the results section. EKG-12 LEAD Routine 08/17/2019 3:59 PM POWERHOUSE OPERATOR CONSENT/REFUSAL FOR Routine 08/17/2019 3:28 DIAGNOSIS AND PM POWERHOUSE OPERATOR TREATMENT BASIC METABOLIC PANEL Routine 08/17/2019 8:16 Chronic heart f ailure Results for (NA, K, CL, CO2, AM POWERHOUSE OPERATOR with preserved this proc edure GLUCOSE, BUN, ejection fraction are in th e CREATININE, CA) results section. HOSPITAL ADM - MISC Routine 08/17/2019 12:01 AM POWERHOUSE OPERATOR HOSPITAL ADMISSION Routine 08/17/2019 12:01 AM POWERHOUSE OPERATOR AGREEMENTS Routine 08/17/2019 12:01 AUTHORIZATIONS AND AM POWERHOUSE OPERATOR IRREVOCABLE ASSIGNMENTS (FORM 2001) POCT Routine 08/13/2019 Other pulmonary Results for PT/INR(COAGUCHEK) embolism without this p rocedure acute cor pulmonale, are in the unspecified results chronicity section. BASIC METABOLIC PANEL Routine 08/10/2019 8:47 Chronic heart f ailure Results for (NA, K, CL, CO2, AM POWERHOUSE OPERATOR with preserved this proc edure GLUCOSE, BUN, ejection fraction are in th e CREATININE, CA) results section. AGREEMENTS Routine 08/10/2019 12:01 AUTHORIZATIONS AND AM POWERHOUSE OPERATOR IRREVOCABLE ASSIGNMENTS (FORM 2001) TROPONIN I STAT 08/08/2019 5:34 Chest pain, Results for PM POWERHOUSE OPERATOR unspecified type this proced ure are in the results section. PROTHROMBIN TIME / STAT 08/08/2019 4:32 Chest pain, Resul ts for INR PM POWERHOUSE OPERATOR unspecified type this proced ure are in the results section. EKG-12 LEAD Routine 08/08/2019 3:27 PM POWERHOUSE OPERATOR CBC WITH DIFFERENTIAL STAT 08/08/2019 3:21 Chest pain, Re sults for PM POWERHOUSE OPERATOR unspecified type this proced ure are in the results section. N-TERMINAL PRO-BNP STAT 08/08/2019 3:21 Chest pain, Resul ts for PM POWERHOUSE OPERATOR unspecified type this proced ure are in the results section. TROPONIN I STAT 08/08/2019 3:21 Chest pain, Results for PM POWERHOUSE OPERATOR unspecified type this proced ure are in the results section. COMP. METABOLIC PANEL STAT 08/08/2019 3:21 Chest pain, Re sults for (90001) PM POWERHOUSE OPERATOR unspecified type this proced ure are in the results section. CBC WITH DIFFERENTIAL STAT 08/08/2019 3:21 Chest pain, Re sults for PM POWERHOUSE OPERATOR unspecified type this proced ure are in the results section. XR CHEST 2 VW STAT 08/08/2019 3:13 Chest pain, Results fo r PM POWERHOUSE OPERATOR unspecified type this proced ure are in the results section. EKG-12 LEAD Routine 08/08/2019 2:55 PM POWERHOUSE OPERATOR CONSENT/REFUSAL FOR Routine 08/08/2019 2:18 DIAGNOSIS AND PM POWERHOUSE OPERATOR TREATMENT EMERGENCY SERVICES Routine 08/08/2019 12:01 AGREEMENTS AND AM POWERHOUSE OPERATOR AUTHORIZATIONS BASIC METABOLIC PANEL Routine 08/06/2019 8:50 Chronic heart f ailure Results for (NA, K, CL, CO2, AM POWERHOUSE OPERATOR with preserved this proc edure GLUCOSE, BUN, ejection fraction are in th e CREATININE, CA) results section. AGREEMENTS Routine 08/06/2019 12:01 AUTHORIZATIONS AND AM POWERHOUSE OPERATOR IRREVOCABLE ASSIGNMENTS (FORM 2001) from Last 3 Months Results TROPONIN I (10/26/2019 9:19 PM CDT)Only the most recent of7 resultswithin the time period is included. Pathologist Sig nature TROPONIN I <0.012 <=0.034 ng/mL [facility] [...] of biotin. Performing Organization Address [facility] Phone Number [facility] CLIA: [id number], [address] [address] [address] [facility] [address] CORONAVIRUS COVID-19 TESTING (10/26/2019 7:40 PM CDT)Only the most recent of2 resultswithin the time period is included. Pathologist Sig nature SARS-CoV-2 Not Detected Not Detected [facility] LABORATORY Specimen Swab - NASOPHARYNGEAL SWAB Narrative Performed At [facility] COVID-19 Assay is an isothermal nucleic [place] acid amplification test intended for the qualitative detection of nucleic acid from SARS-CoV-2 viral RNA in nasopharyngeal (TIRE MOUNTER) specimens. It is used under Emergency Use [...] testing if clinically indicated. Performing Organization Address [facility] Phone Number [facility] CLIA: [id number], [address] URINALYSIS (10/26/2019 7:40 PM CDT) Pathologist Sig nature APPEARANCE Clear Clear [facility] LABORATORY COLOR Yellow Yellow [facility] LABORAT[facility] PH 7.0 4.8 - 8.0 [facility] LABORAT[facility] SP GRAVITY 1.009 1.003 - 1.030 [facility] LABORATORY GLU U QUAL Normal Normal [facility] BLOOD Negative Negative [facility] KETONES Negative Negative [facility] PROTEIN Negative Negative [facility] UROBILIN Normal Normal [facility] BILIRUBIN Negative Negative [facility] LAB[facility] NITRITE Negative Negative [facility] LAB[facility] LEUK TRE Negative Negative [facility] LABORATORY RBC/HPF <1 0 - 3 HPF [facility] LABOR[facility] WBC/HPF 1 0 - 5 HPF [facility] LABORATORY BACTERIA Negative Negative [facility] LABORATORY MUCOUS Slight (A) Negative LPF [facility] LABORATORY SQ EPITH <1 HPF [facility] LABORATORY Specimen Urine - URINE, CLEAN CATCH Performing Organization Address City/State/Zipcode Phone Number [facility] CLIA: [id number], [address] CBC WITH DIFFERENTIAL (10/26/2019 7:37 PM CDT)Only the most recent of7 results within the time period is included. Pathologist Sig nature WBC 12.80 (H) 4.20 - 10.70 [facility] 10*3/L [facility] LAB[facility] RBC 5.43 4.26 - 5.52 [facility] 10*6/L [facility] LABOR[facility] HGB 13.2 12.2 - 16.4 [facility] g/dL [facility] LABORAT[facility] HCT 40.8 38.4 - 49.3 % [facility] LABORATORY MCV 75.1 (L) 81.7 - 95.6 fL [facility] LABORATORY MCH 24.3 (L) 26.1 - 32.7 pg [facility] LABORATORY MCHC 32.4 31.2 - 35.0 [facility] g/dL [facility] LABORAT[facility] RDW-SD 46.2 38.5 - 51.6 fL [facility] LABORATORY RDW-CV 17.4 (H) 12.1 - 15.4 % [facility] LABORATORY PLT 301 150 - 328 [facility] 10*3/L [facility] LABORATORY MPV 9.4 (L) 9.8 - 13.0 fL [facility] LABORATORY NRBC/100 WBC 0.0 0.0 - 10.0 /100 [facility] WBCs HOSPITAL LABORATORY NRBC x10^3 <0.01 10*3/L [facility] LABORATORY GRAN MAT (NEUT) % 76.7 % [facility] LABORATORY IMM GRAN % 0.70 % [facility] LABORATORY LYMPH % 14.9 % [facility] LABORATORY MONO % 6.7 % [facility] [facility] EOS % 0.7 % [facility] BASO % 0.3 % [facility] LABORATORY GRAN MAT x10^3(ANC) 9.81 (H) 1.99 - 6.95 [facility] 10*3/uL HOSPITAL LABORATORY IMM GRAN x10^3 0.09 (H) 0.00 - 0.06 [facility] 10*3/uL HOSPITAL LABORATORY LYMPH x10^3 1.91 1.09 - 3.23 [facility] 10*3/uL HOSPITAL LABORATORY MONO x10^3 0.86 0.36 - 1.02 [facility] 10*3/uL HOSPITAL LABORATORY EOS x10^3 0.09 0.06 - 0.53 [facility] 10*3/uL HOSPITAL LABORATORY BASO x10^3 0.04 0.01 - 0.09 [facility] 10*3/uL HOSPITAL LABORATORY Specimen Blood - VENOUS Performing Organization Address City/State/Zipcode Phone Number [facility] CLIA: [id number], [address] [place], [place] [address] N-TERMINAL PRO-BNP (10/26/2019 7:37 PM CDT)Only the most recent of8 results within the time period is included. Pathologist Sig nature NT-proBNP 41 <=125 pg/mL [facility] LABORATORY Specimen Blood - VENOUS Narrative Performed At Biotin has been reported to cause a negative [facility] LABORATORY bias, interpret results relative to patient's use of biotin. Performing Organization Address City/State/Zipcode Phone Number [facility] CLIA: [id number], [address] [place], [place] [address] D-DIMER (10/26/2019 7:37 PM CDT) Pathologist Sig nature D-DIMER <0.27 <0.41 g/mL (FEU) [facility] Specimen Blood - VENOUS Narrative Performed At This test may be used in conjunction with a [facility] LABORATORY clinical pretest probability (PTP) assessment model [...] in forming a diagnosis. Performing Organization Address City/[facility] Phone Number [facility] CLIA: [id number], [address] [place] [address] PROTHROMBIN TIME / INR (10/26/2019 7:37 PM CDT)Only the most recent of8 results within the time period is included. [facility] Signature PROTIME PATIENT 22.2 (H) 12.0 - 14.7 [facility] Seconds [facility] LABORATORY INR 2.0Comment: Normal [facility] INR <1.1; Warfarin [facility] Therapeutic range LABORATORY 2.0 to 3.0 or 2.5 to 3.5, depending upon the indications. Specimen Blood - VENOUS Performing Organization Address City/[facility] Phone Number [facility] CLIA: [id number], [address] [place] [address] COMP. METABOLIC PANEL ([id number]) (10/26/2019 7:37 PM CDT)Only the most recent of4 resultswithin the time period is included. Pathologist Sig nature NA 137 135 - 145 [facility] mmol/L [facility] LABORATORY K 3.7 3.5 - 5.0 [facility] mmol/L [facility] LABORATORY CL 93 (L) 98 - 108 mmol/L [facility] LABORATORY CO2 TOTAL 36 (H) 23 - 31 mmol/L [facility] LABORATORY AGAP 8 2 - 16 [facility] LABORATORY BUN 21 7 - 23 mg/dL [facility] LABORATORY GLUCOSE 134 (H) 70 - 110 mg/dL [facility] LABORATORY CREATININE 1.22 0.60 - 1.25 [facility] mg/dL [facility] LABORATORY TOTAL BILI 0.6 0.1 - 1.1 mg/dL [facility] LABORATORY CALCIUM 10.3 8.6 - 10.6 [facility] mg/dL [facility] LABORATORY T PROTEIN 8.5 (H) 6.3 - 8.2 g/dL [facility] LABORATORY ALBUMIN 4.4 3.5 - 5.0 g/dL [facility] LABORATORY ALK PHOS 110 34 - 122 U/L [facility] LABORATORY ALTv 27 5 - 50 U/L [facility] LABORATORY AST(SGOT) 35 13 - 40 U/L [facility] LABORATORY eGFR Calculation 62.9 mL/min/1.73m2 [facility] ([facility] LABORATORY South African) eGFR Calculation 76.2 mL/min/1.73m2 [facility] ([facility]) [facility] LABORATORY Specimen Blood - VENOUS Narrative Performed At Association of Glomerular Filtration Rate (GFR) [facility] LABORATORY and Staging of Kidney Disease* [...] Phone Number [facility] CLIA: [id number], [address] [place] [address] MAGNESIUM (10/26/2019 7:37 PM CDT)Only the most recent of9 resultswithin the time period is included. Pathologist Sig nature MAGNESIUM 1.9 1.7 - 2.4 mg/dL [facility] LABORATORY Specimen Blood - VENOUS Performing Organization Address [facility] Phone Number [facility] CLIA: [id number], [address] [place] [address] LIPASE (10/26/2019 7:37 PM CDT) Pathologist Sig nature LIPASE 36 0 - 220 U/L [facility] LABORATORY Specimen Blood - VENOUS Performing Organization Address [facility] Phone Number [facility] CLIA: [id number], [address] [place] [address] XR CHEST [...] Centers for Disease Control (CDC) and the [place] [employer], viral testing remains the [...] for Disease Con trol (CDC) and the [place] [employer], viral testing remains the only specific method of diagnosis even if CXR or CT findings are suggestiv e of COVID-19. Preliminary Report Dictated by Resident: Russ Persaud I, Shayna Bautista MD., have reviewed this study and agree with the above report. Performing Organization Address [facility] Phone Number PACS/VR/DOSE EKG-12 LEAD (10/26/2019 6:26 PM CDT) Specimen Performing Organization Address [facility] Phone Number [facility] AGREEMENTS AND AUTHORIZATIONS (10/26/2019 12:01 AM CDT)Only the most recent of2 resultswithin the time period is included. Specimen Performing Organization Address [facility] Phone Number [facility] POCT GLUCOSE (AUTOMATED) (10/12/2019 11:03 AM CDT)Only the most recent of14 resultswithin the time period is included. Pathologist Sig nature POCT GLU 170 (H) 70 - 110 mg/dL [facility] LABORATORY Specimen Blood Performing Organization Address [facility] Phone Number [facility] CLIA: [id number], [address] [place], [place] [address] BASIC METABOLIC PANEL (NA, K, CL, CO2, GLUCOSE, BUN, CREATININE, CA) (10/12/2019 4:04 AM CDT)Only the most recent of16 resultswithin the time period is included. NA 137 135 - 145 [facility] mmol/L HOSPITAL LABORATORY K 3.5 3.5 - 5.0 [facility] mmol/L [facility] LABORATORY CL 100 98 - 108 mmol/L [facility] LABORATORY CO2 TOTAL 32 (H) 23 - 31 mmol/L [facility] LABORATORY AGAP 5 2 - 16 [facility] LABORATORY BUN 18 7 - 23 mg/dL [facility] LABORATORY GLUCOSE 121 (H) 70 - 110 mg/dL [facility] CREATININE 1.27 (H) 0.60 - 1.25 [facility] mg/dL [facility] LABORATORY CALCIUM 9.6 8.6 - 10.6 [facility] mg/dL [facility] LABORATORY eGFR Calculation 60.0 mL/min/1.73m2 [facility] ([facility] LABORATORY South African) eGFR Calculation 72.8 mL/min/1.73m2 [facility] () [facility] LABORATORY Specimen Blood - ARM, RIGHT Narrative Performed At Association of Glomerular Filtration Rate (GFR) [facility] LABORATORY and Staging of Kidney Disease* [...] in imaging tests). Performing Organization Address City/[facility]/Zipcode Phone Number [facility] CLIA: [id number], [address] [place] [address] aPTT (10/11/2019 4:58 PM CDT) [facility] APTT Patient 51 (H) 23 - 38 Seconds [facility] LABORATORY Specimen Blood - ARM, RIGHT Narrative Performed At The [facility] patient population mean normal value [facility] LABORATORY for aPTT is 30 seconds. Performing Organization Address City/[facility]/Zipcode Phone Number [facility] CLIA: [id number], [address] [place], [place] [address] Hepatic Function Panel (ALB, T.PRO, BILI T, BU/BC, ALT, AST, ALK PHOS) (10/11/2019 4:58 PM CDT) Pathologist Sig nature TOTAL BILI 0.5 0.1 - 1.1 mg/dL [facility] LABORATORY BILI UNCON 0.5 0.1 - 1.1 mg/dL [facility] LABORATORY BILI CONJ 0.0 0.0 - 0.3 mg/dL [facility] LABORATORY T PROTEIN 8.2 6.3 - 8.2 g/dL [facility] LABORATORY ALBUMIN 4.3 3.5 - 5.0 g/dL [facility] LABORATORY ALK PHOS 118 34 - 122 U/L [facility] LABORATORY ALTv 33 5 - 50 U/L [facility] LABORATORY AST(SGOT) 26 13 - 40 U/L [facility] LABORATORY Specimen Blood - ARM, RIGHT Performing Organization Address City/State/Zipcode Phone Number [facility] CLIA: [id number], [address] [place], [place] [address] EKG-12 LEAD (10/11/2019 3:21 PM CDT) Specimen Performing Organization Address City/State/Zipcode Phone Number [facility] CONSENT/REFUSAL FOR DIAGNOSIS AND TREATMENT (10/11/2019 3:09 PM CDT)Only the most recent of5 resultswithin the time period is included. Specimen Performing Organization Address City/State/Zipcode Phone Number [facility] HOSPITAL ADMISSION (10/11/2019 12:01 AM CDT)Only the most recent of3 results within the time period is included. Specimen Performing Organization Address City/State/Zipcode Phone Number [facility] HOSPITAL ADM - MISC (10/11/2019 12:01 AM CDT)Only the most recent of2 results within the time period is included. Specimen Performing Organization Address City/State/Zipcode Phone Number [facility] AGREEMENTS AUTHORIZATIONS AND IRREVOCABLE ASSIGNMENTS (FORM 2000) (09/16/2019 12:01 AM CDT)Only the most recent of5 resultswithin the time period is included. Specimen Performing Organization Address City/State/Zipcode Phone Number [facility] ASSIGNMENT OF BENEFITS (09/11/2019 8:50 AM CDT) Specimen Performing [facility] Phone Number [facility] POCT PT/INR(COAGUCHEK) (09/06/2019)Only the most recent of3 resultswithin the time period is included. Pathologist Sig nature POCT PT/INR 2.3 (A) 0.8 - 1.4 INR POCT PT/SEC 27.0 SEC Specimen Blood - CAPILLARY PACEMAKER DEVICE CHECK (08/30/2019 3:00 AM CDT) Specimen Performing Organization [facility] Phone Number EP CONSENT TO CONTACT FOR VOLUNTARY RESEARCH (08/27/2019 2:52 PM POWERHOUSE OPERATOR) Pathologist Sig [facility] Consent To Contact For Voluntary Yes HIM Research Specimen Performing [facility] Phone Number [facility] EKG-12 LEAD (08/24/2019 3:19 PM POWERHOUSE OPERATOR) Specimen Performing [facility] Phone Number [facility] NOTICE OF PRIVACY PRACTICES (08/24/2019 3:04 PM POWERHOUSE OPERATOR) Specimen Performing [facility] Phone Number [facility] PROTEIN S ACTIVITY (08/24/2019 11:12 AM POWERHOUSE OPERATOR) Pathologist Sig frestyl PROTEIN S ACTIVITY 79 64 - 149 % [facility] ES Specimen Blood - ARM, LEFT Narrative Performed At Age and hormonal status may affect the normal range fo r [facility] females (particularly during ). Test should n ot be ordered in patients on Coumadin as it can decrease Pro tein C and S levels. Additional studies should be conducted t o determine the source of unexpected abnormal results. Performing Organization Address [facility] Phone Number [facility] CLIA: [id number], [address] [place], [place] [address] [facility] PROTEIN C ACTIVITY (08/24/2019 11:12 AM POWERHOUSE OPERATOR) Pathologist Sig frestyl PROTEIN C ACTIVITY 52 (L) 70 - 140 % [facility] Specimen Blood - [...] Performing Organization Address City/State/Zipcode Phone Number [facility] CLIA: [id number], [address] [place] [address] [facility] ANTITHROMBIN ACTIVITY (08/24/2019 11:12 AM POWERHOUSE OPERATOR) Pathologist Sig nature ANTITHROMBIN ACTIVITY 99 83 - 128 % [facility] SER VICES Specimen Blood - ARM, LEFT Performing Organization Address City/[facility] Phone Number [facility] CLIA: [id number], [address] [place], [place] [address] [facility] FACTOR 2 [id number] MUTATION (08/24/2019 11:12 AM POWERHOUSE OPERATOR) Pathologist Sig [facility] Factor 2 [id number] Normal Normal [facility] Mutation SERVICES Specimen Blood - ARM, LEFT Narrative Performed At Phenotype Characteristics: 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 Incidence: Approximately 2-5 percent of Caucasians and 0.3 percent of Americans are heterozygous; about 1 in 10,000 individuals are homozygous with two copies of t he mutation. Inheritance: Autosomal dominant. Penetrance: The risk of thrombosis is increased 2-4 fo ld for heterozygotes and further increased for homozygotes. Mutation Tested: F2 c.35194T>A ([id number]) . Clinical Sensitivity for Venous Thrombosis: Approximat jojo 10%. Methodology: Polymerase chain reaction and fluorescenc e monitoring Limitations: The performance of this assay has not bee n evaluated with samples from pediatric fl tients. Counseling and informed consent are recommended for [facility] testing. References: OMIM: [id number] https://ghr.nlm.nih.gov/condition/prothr ombin-thrombophilia Performing Organization Address City/[facility]/Zipcode Phone Number [facility] CLIA: [id number], [address] [place] [address] [facility] FACTOR 5 LEIDEN (08/24/2019 11:12 AM POWERHOUSE OPERATOR) Pathologist Sig nature FACTOR 5 LEIDEN Normal Normal [facility] Specimen Blood - ARM, LEFT Narrative Performed At Phenotype Characteristics: Thrombophilia due to mutati on of [facility] coagulation factor 5 (F5) [...] Factor 5 Leide n mutation is c.1601G>A (p.Ahe789Cao). Methodology: Polymerase chain reaction and fluorescenc e monitoring. Limitations: Rare Factor V mutations (R9181S, M0189D, and U4679L) and any additional SNPs in the probe binding r egion may interfere with the target detection and yield an I NVALID result. The performance of this assay has not been bret luated with samples from pediatric patients. Counseling and informed consent are recommended for [facility] testing. References: OMIM: [id number] https://ghr.nlm.nih.gov/condition/nopvsn-k-twlupw-thro garrett abby Performing Organization Address [facility] Phone Number [facility] CLIA: [id number], [address] [place] [address] [facility] PROTEIN C ANTIGEN (08/24/2019 11:12 AM POWERHOUSE OPERATOR) Protein C See scanned ANTIPHOSPHOLIPID (Antigen) report [facility] Specimen Blood - ARM, LEFT Narrative Performed At This result has an attachment that is no t available. Performing Organization Address [facility] Phone Number ANTIPHOSPHOLIPID [address] [place] [address] [phone] [facility] [address] [employer] [address] AUTHORIZATION FOR RELEASE OF PHI (08/24/2019 12:01 AM POWERHOUSE OPERATOR)Only the most recent of2 resultswithin the time period is included. Specimen Performing Organization Address City/State/Zipcode Phone Number [facility] PATIENT QUESTIONNAIRE (08/24/2019 12:01 AM POWERHOUSE OPERATOR) Specimen Performing Organization Address [facility]/Zipcode Phone Number HIM EKG-12 LEAD (08/17/2019 4:16 PM POWERHOUSE OPERATOR) Specimen Performing Organization Address [facility]/Zipcode Phone Number [facility] GLYCOSYLATED HEMOGLOBIN (A1C) (08/17/2019 4:06 PM POWERHOUSE OPERATOR) Pathologist Sig nature HGB A1C 7.8 (H) 4.0 - 6.0 % [facility] L LABORATORY Specimen Blood - VENOUS Narrative Performed At %A1C (NGSP) Interpretation (ADA) [facility] LABORATORY 4.8-5.6 Normal or (Non-Diabetic Ra nge) 5.7-6.4 Increased Risk (Pre-Diabet ic) >6.5 Diabetes Indicated Performing Organization Address City/State/Zipcode Phone Number [facility] CLIA: [id number], [address] [place], [place] [address] EKG-12 LEAD (08/08/2019 3:27 PM POWERHOUSE OPERATOR) Specimen Performing Organization Address City/State/[facility] Phone Number [facility] XR CHEST 2 VW (08/08/2019 3:13 PM POWERHOUSE OPERATOR) Specimen Impressions Performed At No acute cardiopulmonary disease PACS/VR/DOSE RL: 501 AFC: [id number] End of report 3 :27 PM Narrative [...] Results Inft User - 2019 3:28 PM POWERHOUSE OPERATOR ORDERING CLINICIAN: HAFSA MELVIN TECHNIQUE: 2 views [...] No acute cardiopulmonary disease RL: 501 AFC: [id number] End of report Performing Organization Address City/State/Zipcode Phone Number PACS/VR/DOSE from Last 3 Months Insurance Payer Benefit Plan / Subscriber ID Effective Phone Address T ype Group Dates [employer] [id number] 2017-[employer]ux [phone] [address] [facility] [facility] [employer] [id number] [place] [address] (Home) [place] [address] Advance Directives Name Relationship Healthcare Agent Communication Relationship Keaton Leslie Spouse Primary healthcare agent Elisabeth Soliz Sibling First [facility] healthcare agent (Mobile)
== END 2019-11-07 21:19 | disposition home or self-care (01) ==
LOC: ER 20:30
PROC: 0JQJ0ZZ Repair Right Hand Subcutaneous Tissue and Fascia, Open Approach (ICD-10-PCS; principal; 2019-11-07)
DX: S66.320A Laceration of extensor muscle, fascia and tendon of right index finger at wrist and hand level, initial encounter (principal); W26.0XXA Contact with knife, initial encounter; Y93.9 Activity, unspecified; Y92.009 Unspecified place in unspecified non-institutional (private) residence as the place of occurrence of the external cause; Z88.5 Allergy status to narcotic agent; Z88.6 Allergy status to analgesic agent; Z88.8 Allergy status to other drugs, medicaments and biological substances; Z95.0 Presence of cardiac pacemaker
CPT/HCPCS: 99283

== ENCOUNTER 2020-09-28 12:15 | Emergency (ER) | payer OTHER ==
--- OUTSIDE RECORDS SUMMARY | 2020-09-28 12:23 | XMS REPORT | Continuity of Care Document ---
:1970 Author Organization [facility] t Address [address] Mishra [address] [place] [id number] Care Team Providers Name Role Phone Madelaine PHILLIP Primary Care Physician Nancie Zuleta Attending Clinician Mayo Dupont Attending Clinician Papa Lopez Attending Clinician Ca Platt Attending Clinician Raulito Partida Attending Clinician Esau Roberts Attending Clinician Mayo Dupont Admitting Clinician Esau Roberts Admitting Clinician Payers Payer Name Policy Type Policy Number Effective Date Expiration Date S ource Problems Condition Condition Condition Status Onset Resolution Last Treating Co mments Source Name Details Category Date Date Treatment Clinician Date CHEST PAIN Diagnosis Active 2015-062016-10-01 Memoria - 15:12:00 l CHEST 00:00: Freddy PAIN 00 Active 05/17/2016 [facility] ACS, CHEST Diagnosis Active 2015-062016-10-01 Memoria PAIN - 15:12:00 l ACS, 00:00: Freddy CHEST PAIN 00 Active 05/05/2016 [facility] [place] KIDNEY Diagnosis Active 2015-062016-10-01 [facility] oria STONES 1- 15:13:00 l KIDNEY 00:00: [place] STONES 00 Active 04/25/2016 [facility] [place] KIDNEY Diagnosis Active 2016-03-02 [facility] oria STONE - 07:18:00 l KIDNEY 00:00: [place] STONE 00 Active 03/02/2016 [facility] PYELONEPHR Diagnosis Active 2016-02-17 Memoria ITIS 02-16 08:00:00 l 00:00: Freddy PYELONEPHR 00 ITIS Active 02/17/2016 [facility] Acute Acute Disease Active [facility] chest pain chest pain 7 [place] kes - 00:00: Medical 00 [place] Chest Chest Disease Active [facility] pain, pain, [facility] - unspecifie unspecifie 00:00: Me dical d type d type 00 [place] Essential Essential Disease Active [facility] hypertensi hypertensi 12-18 [place] kes - on with on with 00:00: Medical goal blood goal blood 00 Ce nter pressure pressure less than less than 130/80 130/80 GREGORIO on GREGORIO on Disease Active [facility] CPAP CPAP 12-18 [facility] - 00:00: Medical 00 [place] 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 12-18 [place] kes - n, Grade 1 n, Grade 1 00:00: Me dical 00 [place] 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 2 in type 2 in 00:00: Medi marium obese obese 00 Center STEMI (ST STEMI (ST Disease Active [facility] elevation elevation 6-14 [facility] - myocardial myocardial 00:00: Me dical infarction infarction 00 Ce nter ) ) Abdominal Problem Resolve 2016-05-20 M emoria aortic d 02:45:43 l aneurysm Freddy (disorder) Abdominal aortic aneurysm (disorder) Resolved Problem 05/20/2016 [facility] Congestive Problem Resolve 2016-05-20 Memoria heart d 02:45:43 l failure [place] (disorder) Congestive heart failure (disorder) Resolved Problem 05/20/2016 2L fluid restrictio n/24hrs [facility] Diabetes Problem Resolve 2016-05-20 In moria mellitus d 02:45:43 l (disorder) Diabetes He rmann mellitus (disorder) Resolved Problem 05/20/2016 [facility] Hyperchole Problem Resolve 2016-05-20 Memoria sterolemia d 02:45:43 l (disorder) Fly n Hyperchole sterolemia (disorder) Resolved Problem 05/20/2016 [facility] Hypertensi Problem Resolve 2016-05-20 Memoria ve d 02:45:43 l disorder, [place] systemic Hypertensi arterial ve (disorder) disorder, systemic arterial (disorder) Resolved Problem 05/20/2016 [facility] Kidney Problem Resolve 2016-05-20 Bc jae stone d 02:45:43 l (disorder) Kidney Herm ca stone (disorder) Resolved Problem 05/20/2016 [facility] Right Problem Resolve 2016-05-20 Bc jae bundle d 02:45:43 l branch Right [place] block bundle (disorder) branch block (disorder) Resolved Problem 05/20/2016 [facility] Sleep Problem Resolve 2016-05-20 Bc jae apnea d 02:45:43 l (finding) Sleep Fly n apnea (finding) Resolved Problem 05/20/2016 [facility] TUBULO-INT Diagnosis Active 2016-02-17 Memoria ERSTITIAL 08:00:00 l NEPHRITIS, Fly n NOT SPCF TUBULO-INT ERSTITIAL NEPHRITIS, NOT SPCF Active [facility] CHEST Diagnosis Active 2016-10-01 Mem oria PAIN, 15:12:00 l UNSPECIFIE CHEST Ashley nn D PAIN, UNSPECIFIE D Active [facility] History of Past Illness Condition Condition Condition Status Onset Resolution Last Treating Co mments Source Name Details Category Date Date Treatment Clinician Date Discharge Problem 2015-062016-05-20 2016-05-20 Memoria Diagnosis: 07-17 02:45:43 02:45:43 l Chest pain 06:00: Fly n Discharge 00 Diagnosis: Chest pain 05/17/2016 05/20/2016 [facility] Discharge Problem 2015-062016-04-28 2016-04-28 Memoria Diagnosis: 06-25 04:09:27 04:09:27 l Flank pain 05:00: Fly n Discharge 00 Diagnosis: Flank pain 04/25/2016 04/28/2016 [facility] Discharge Problem 2016-03-08 2016-03-08 Memoria Diagnosis: 03-05 05:16:49 05:16:49 l Acute 05:00: Freddy chest pain Discharge 00 Diagnosis: Acute chest pain 03/05/2016 03/08/2016 [facility] Discharge Problem 2016-03-05 2016-03-05 Memoria Diagnosis: 03-02 01:19:04 01:19:04 l Renal 05:00: [place] calculus Discharge 00 Diagnosis: Renal calculus 6 03/05/2016 [facility] Allergies, Adverse Reactions, Alerts Allergy Allergy Status Severity Reaction(s) Onset Inactive Treating Comm ents Source Name Type Date Date Clinician gabapent DA Active [facility] in 07-03 Clear 00:00: Meraz [facility] Tramadol Propensi Active Tachycard [facility] ty to 03-20 [facility] - adverse 00:00: Medical reaction 00 [place] [facility] Beta-Blo Propensi Active Per [facility] c[facility] ty to 12-04 patient [facility] - (Beta-Ad adverse 00:00: "heart Medical renergic reaction 00 rate Center Blocking s drop, Agts) lethargic , weak" Tamsulos Propensi Active "too over [facility] in ty to 14 power" [facility] - adverse 00:00: Medical reaction 00 [place] [facility] Butorpha Propensi Active "tachycar [facility] nol ty to 12-04 farzad" [facility] - Tartrate adverse 00:00: Medical reaction 00 [place] [facility] tramadol DA Active [facility] 3-10 Clear 00:00: Meraz [facility] butorpha DA Active [facility] nol 3-10 Clear 00:00: Meraz 00 [facility] tamsulos DA Active [facility] in 08-30 Clear 00:00: Meraz 00 [facility] Stadol Stadol Active Memoria l [place] traMADol traMADol Active Memori a l Freddy beta beta Active Memoria blockers blockers l [place] Flomax Flomax Active Memoria l Freddy Family History Family Member Diagnosis Comments Start Date Stop Date Source Natural father Heart disease [facility] Social History Social Habit Start Date Stop Date Quantity Comments Source Sex Assigned At [facility] Tobacco use and 2016-04-02 2016-04-02 Never used [facility] kes - exposure 00:00:00 00:00:00 [facility] Alcohol intake 2016-04-02 2016-04-02 Current [facility] es - 00:00:00 00:00:00 non-drinker of Medical nter alcohol (finding) Cigarettes smoked 2016-04-02 2016-04-02 [facility] [place] - current (pack per 00:00:00 00:00:00 [facility] Center day) - Reported Tobacco Comment 2015-12-05 2015-12-05 Quit for 1 1/2 [facility] S t [facility] - 00:00:00 00:00:00 years ago [facility] Smoking Status Start Date Stop Date Source Social History 2016-05-17 22:34:21 2016-05-17 22:34:21 [facility] Medications Ordered Filled Start Stop Current Ordering Indication Dosage Frequency Signature Comments Components Source Medication Medication Date Date Medication? Clinician (SIG) Name Name Aspirin 2015-06 No Notes: Do Memor ia 1-25 not crush l 23:16: or chew. Freddy 00 (Same As: Ecotrin) Aspirin 2015-06 No Notes: Do Memor ia 1-25 not crush l 23:16: or chew. Freddy 00 (Same As: Ecotrin) Saline 2015-06 No Notes: Memoria Flush 0.9% 1-25 (Same as: l 21:48: BD [place] 00 Posiflush) Saline 2015-06 No Notes: Memoria Flush 0.9% 1-25 (Same as: l 21:48: BD [place] 00 Posiflush) Plavix 2015-06 No Notes: Memoria 1-15 (Same As: l 15:00: Plavix) Freddy 00 Plavix 2015-06 No Notes: Memoria 1-15 (Same As: l 15:00: Plavix) [place] 00 metoprolol 2015-06 Yes 25 mg = 1 Me moria 25 mg oral 1-15 tab, PO, l tablet, 00:17: Daily, # Fly n extended 00 30 tab, 0 release Refill(s) metoprolol 2015-06 Yes 25 mg = 1 Me moria 25 mg oral 1-15 tab, PO, l tablet, 00:17: Daily, # Fly n extended 00 30 tab, 0 release Refill(s) Protonix 2015-06 No Notes: Memoria 1-14 Tablet l 22:30: should not [place] 00 be chewed or crushed. (Same as: Protonix) Protonix 2015-06 No Notes: Memoria 1-14 Tablet l 22:30: should not [place] 00 be chewed or crushed. (Same as: Protonix) Lisinopril 2015-06 No Notes: Memor ia 1-14 (Same as: l 15:00: Prinivil, [place] 00 Zestril) Aspirin 325 2015-06 No Notes: Bc jae MG Oral 1-14 Take with l Tablet 15:00: food. [place] 00 Lisinopril 2015-06 No Notes: Memor ia 1-14 (Same as: l 15:00: Prinivil, Freddy 00 Zestril) Aspirin 325 2015-06 No Notes: Bc jae MG Oral 1-14 Take with l Tablet 15:00: food. atorvastati 2015-06 Yes 40 mg = 1 M emoria n 40 mg 1-14 tab, PO, l oral tablet 09:08: Bedtime, # Freddy 00 90 tab, 1 Refill(s) atorvastati 2015-06 Yes 40 mg = 1 M emoria n 40 mg 1-14 tab, PO, l oral tablet 09:08: Bedtime, # Freddy 00 90 tab, 1 Refill(s) Alprazolam 2015-06 No Notes: Memor ia 1 MG Oral 1-14 With food l Tablet 04:49: or milk [place] [Xanax] 00 (Same as: Xanax) Alprazolam 2015-06 No Notes: Memor ia 1 MG Oral 1-14 With food l Tablet 04:49: or milk [place] [Xanax] 00 (Same as: Xanax) Lipitor 2015-06 No Notes: Memoria 1-14 (Same as: l 03:00: Lipitor) Freddy 00 Clindamycin 2015-06 No Notes: Bc jae 1-14 (Same As: l 03:00: Cleocin) Freddy 00 Saline 2015-06 No Notes: Memoria Flush 0.9% 1-14 preservati l 03:00: ve free. [place] 00 Lipitor 2015-06 No Notes: Memoria 1-14 (Same as: l 03:00: Lipitor) Freddy 00 Clindamycin 2015-06 No Notes: Bc jae 1-14 (Same As: l 03:00: Cleocin) Freddy Saline 2015-06 No Notes: Memoria Flush 0.9% 1-14 preservati l 03:00: ve free. Freddy 00 Insulin, 2015-06 No Notes: Memoria Aspart, 1-14 Roll in l Human 02:27: palms of [place] 00 hands gently; Do not shake vigorously . (Same as: NovoLOG) "single patient use only" WASTE: F/P - Black; E - Municipal Trash Bin Stable for 28 days at room temperatur e. Expires in days from ____Date Glucagon 2015-06 No 1 mg, Memoria 1-14 Route: IM, l 02:27: Drug form: [place] 00 PDR/INJ, PRN, Dosing Weight 127.273, kg, PRN Blood Glucose Results, Start date: 05/05/16 20:27:00 CEMENTER MACHINE APPLICATOR, Duration: 30 day, Stop date: 06/04/16 20:26:00 CEMENTER MACHINE APPLICATOR Dextrose 2015-06 No 12.5 gm, Memor ia 50% Syringe -14 25 mL, l 02:27: Route: Freddy 00 IVP, Drug Form: INJ, Dosing Weight 127.273, kg, PRN, PRN Blood Glucose Results, Start date: 05/05/16 20:27:00 CEMENTER MACHINE APPLICATOR, Duration: 30 day, Stop date: 06/04/16 20:26:00 CEMENTER MACHINE APPLICATOR Insulin, 2015-06 No Notes: Memoria Aspart, 1-14 Roll in l Human 02:27: palms of [place] 00 hands gently; Do not shake vigorously . (Same as: NovoLOG) "single patient use only" WASTE: F/P - Black; E - Municipal Trash Bin Stable for 28 days at room temperatur e. Expires in days from ____Date Glucagon 2015-06 No 1 mg, Memoria 1-14 Route: IM, l 02:27: Drug form: [place] 00 PDR/INJ, PRN, Dosing Weight 127.273, kg, PRN Blood Glucose Results, Start date: 05/05/16 20:27:00 CEMENTER MACHINE APPLICATOR, Duration: 30 day, Stop date: 06/04/16 20:26:00 CEMENTER MACHINE APPLICATOR Dextrose 2015-06 No 12.5 gm, Memor ia 50% Syringe 14 25 mL, l 02:27: Route: Freddy 00 IVP, Drug Form: INJ, Dosing Weight 127.273, kg, PRN, PRN Blood Glucose Results, Start date: 05/05/16 20:27:00 CEMENTER MACHINE APPLICATOR, Duration: 30 day, Stop date: 06/04/16 20:26:00 CEMENTER MACHINE APPLICATOR Morphine 2015-06 No Notes: Memoria 1-14 (Same l 02:00: as:MORPhin [place] 00 e Sulfate) Morphine 2015-06 No Notes: Memoria 1-14 (Same l 02:00: as:MORPhin Freddy 00 e Sulfate) Plavix 2015-06 No Notes: Memoria 1-14 (Same As: l 01:58: Plavix) [place] 00 Plavix 2015-06 No Notes: Memoria 1-14 (Same As: l 01:58: Plavix) [place] 00 Saline 2015-06 No Notes: Memoria Flush 0.9% -14 (Same as: l 01:55: BD [place] 00 Posiflush) Albuterol 2015-06 No Notes: Memori a 0.833 MG/ML -14 (Same as: l / 01:55: Duoneb) [place] Ipratropium 00 [place] 0.167 MG/ML Inhalant Solution Nystatin 2015-06 No Notes: Memoria 100 UNT/MG -14 (Same l Topical 01:55: as:Mycosta Herm ca Powder 00 tin, Nilstat) For external use only. Saline 2015-06 No Notes: Memoria Flush 0.9% 07-06 (Same as: l 01:55: BD [place] 00 Posiflush) Albuterol 2015-06 No Notes: Memori a 0.833 MG/ML 07-06 (Same as: l / 01:55: Duoneb) [place] Ipratropium 00 [place] 0.167 MG/ML Inhalant Solution Nystatin 2015-06 No Notes: Memoria 100 UNT/MG 07-06 (Same l Topical 01:55: as:Mycosta Herm ca Powder 00 tin, Nilstat) For external use only. Nitroglycer 2015-06 No Notes: Bc jae in 07-06 (Same l 01:54: as:Tridil) [place] 00 Final conc = 0.4 mg/ml. Premix bottle. Nitroglycer 2015-06 No Notes: Bc jae in 07-06 (Same l 01:54: as:Tridil) Freddy 00 Final conc = 0.4 mg/ml. Premix bottle. heparin 2015-06 No 500 mL, Memoria additive 07-06 Rate: l 25,000 unit 01:43: 22.73 Ashley nn [12 00 ml/hr, unit/kg/hr] Infuse + Premix over: 22 Diluent hr, Route: Dextrose 5% IV, Dosing 500 mL Weight 94.7 kg, Total Volume: 500 mL, Start date: 05/05/16 19:43:00 CEMENTER MACHINE APPLICATOR, Duration: 30 day, Stop date: 06/04/16 19:42:00 CEMENTER MACHINE APPLICATOR Heparin 60 2015-06 No Route: Memor ia unit/kg 07-06 IVP, PRN, l Bolus 01:43: 5,800 [place] (Heparin 00 unit, 5.8 Dosing mL, Drug Weight) form: INJ, PRN, Heparin Protocol, Start date: 05/05/16 19:43:00 CEMENTER MACHINE APPLICATOR Stop date: 06/04/16 19:42:00 CEMENTER MACHINE APPLICATOR Heparin 30 2015-06 No Route: Memor ia unit/kg 07-06 IVP, PRN, l Bolus 01:43: 2,900 Freddy (Heparin 00 unit, 2.9 Dosing mL, Drug Weight) form: INJ, PRN, Heparin Protocol, Start date: 05/05/16 19:43:00 CEMENTER MACHINE APPLICATOR Stop date: 06/04/16 19:42:00 CEMENTER MACHINE APPLICATOR Heparin - 2015-06 No 4,000 Memoria one time 1-14 unit, 4 l bolus for 01:43: mL, Route: [facility] ACS 00 IVP, Drug form: INJ, ONCE, Dosing Weight 127.273, kg, Priority: STAT, Start date: 05/05/16 19:43:00 CEMENTER MACHINE APPLICATOR, Stop date: 05/05/16 19:43:00 CEMENTER MACHINE APPLICATOR heparin 2015-06 No 500 mL, Memoria additive 1-14 Rate: l 25,000 unit 01:43: 22.73 Ashley nn [12 00 ml/hr, unit/kg/hr] Infuse + Premix over: 22 Diluent hr, Route: Dextrose 5% IV, Dosing 500 mL Weight 94.7 kg, Total Volume: 500 mL, Start date: 05/05/16 19:43:00 CEMENTER MACHINE APPLICATOR, Duration: 30 day, Stop date: 06/04/16 19:42:00 CEMENTER MACHINE APPLICATOR Heparin 60 2015-06 No Route: Memor ia unit/kg 1-14 IVP, PRN, l Bolus 01:43: 5,800 [place] (Heparin 00 unit, 5.8 Dosing mL, Drug Weight) form: INJ, PRN, Heparin Protocol, Start date: 05/05/16 19:43:00 CEMENTER MACHINE APPLICATOR Stop date: 06/04/16 19:42:00 CEMENTER MACHINE APPLICATOR Heparin 30 2015-06 No Route: Memor ia unit/kg 1-14 IVP, PRN, l Bolus 01:43: 2,900 [place] (Heparin 00 unit, 2.9 Dosing mL, Drug Weight) form: INJ, PRN, Heparin Protocol, Start date: 05/05/16 19:43:00 CEMENTER MACHINE APPLICATOR Stop date: 06/04/16 19:42:00 CEMENTER MACHINE APPLICATOR Heparin - 2015-06 No 4,000 Memoria one time 1-14 unit, 4 l bolus for 01:43: mL, Route: [facility] r[facility] ACS 00 IVP, Drug form: INJ, ONCE, Dosing Weight 127.273, kg, Priority: STAT, Start date: 05/05/16 19:43:00 CEMENTER MACHINE APPLICATOR, Stop date: 05/05/16 19:43:00 CEMENTER MACHINE APPLICATOR Morphine 2015-06 No Notes: Memoria 1-14 (Same l 01:25: as:MORPhin [place] 00 e Sulfate) Morphine 2015-06 No Notes: Memoria 1-14 (Same l 01:25: as:MORPhin Freddy 00 e Sulfate) Nitroglycer 2015-06 No 1 inch, Mem oria in 0.02 13 Route: l MG/MG 23:40: TOP, Freddy Topical 00 Dosing Ointment Weight 127.273, kg, ONCE, STAT, Start date: 05/05/16 17:40:00 CEMENTER MACHINE APPLICATOR, Stop date: 05/05/16 17:40:00 CEMENTER MACHINE APPLICATOR Nitroglycer 2015-06 No 1 inch, Mem oria in 0.02 07-05 Route: l MG/MG 23:40: TOP, [place] Topical 00 Dosing Ointment Weight 127.273, kg, ONCE, STAT, Start date: 05/05/16 17:40:00 CEMENTER MACHINE APPLICATOR, Stop date: 05/05/16 17:40:00 CEMENTER MACHINE APPLICATOR Aspirin 81 2015-06 No 243 mg, Bc jae MG Chewable 07-05 Route: PO, l Tablet 23:17: Drug form: Ashley nn 00 CHEWTAB, ONCE, Dosing Weight 127.273, kg, Priority: STAT, Start date: 05/05/16 17:17:00 CEMENTER MACHINE APPLICATOR, Stop date: 05/05/16 17:17:00 CEMENTER MACHINE APPLICATOR Aspirin 81 2015-06 No 243 mg, Bc jae MG Chewable 07-05 Route: PO, l Tablet 23:17: Drug form: Ashley nn 00 CHEWTAB, ONCE, Dosing Weight 127.273, kg, Priority: STAT, Start date: 05/05/16 17:17:00 CEMENTER MACHINE APPLICATOR, Stop date: 05/05/16 17:17:00 CEMENTER MACHINE APPLICATOR Morphine 2015-06 No 4 mg, Memoria 07-05 Route: l 23:15: IVP, ONCE, [place] 00 Dosing Weight 127.273, kg, Priority: STAT, Start date: 05/05/16 17:15:00 CEMENTER MACHINE APPLICATOR, Stop date: 05/05/16 17:15:00 CEMENTER MACHINE APPLICATOR Morphine 2015-06 No 4 mg, Memoria 07-05 Route: l 23:15: IVP, ONCE, Freddy Dosing Weight 127.273, kg, Priority: STAT, Start date: 05/05/16 17:15:00 CEMENTER MACHINE APPLICATOR, Stop date: 05/05/16 17:15:00 CEMENTER MACHINE APPLICATOR Saline 2015-06 No Notes: Memoria Flush 0.9% 07-05 preservati l 22:55: ve free. [place] Saline 2015-06 No Notes: Memoria Flush 0.9% 07-05 preservati l 22:55: ve free. Freddy Acetaminoph 2015-06 No 1 - 2 tab, Memoria en 300 MG / 1-04 PO, Q4H, l Codeine 01:41: PRN Pain, Ashley nn Phosphate 00 X 2 day, # 30 MG Oral 20 tab, 0 Tablet Refill(s) [Tylenol with Codeine #3] Acetaminoph 2015-06 No 1 - 2 tab, Memoria en 300 MG / 1-04 PO, Q4H, l Codeine 01:41: PRN Pain, Ashley nn Phosphate 00 X 2 day, # 30 MG Oral 20 tab, 0 Tablet Refill(s) [Tylenol with Codeine #3] Morphine 2015-06 No Notes: Memoria 06-26 (Same l 00:51: as:MORPhin Freddy 00 e Sulfate) Morphine 2015-06 No Notes: Memoria 06-26 (Same l 00:51: as:MORPhin [place] 00 e Sulfate) Zofran 2015-06 No Notes: Memoria 06-25 (Same as: l 23:23: Zofran) [place] 00 MEDICATION WASTE Product Size: 4 mg Product Wasted: ___ mg Morphine 2015-06 No Notes: Memoria 06-25 (Same l 23:23: as:MORPhin Freddy 00 e Sulfate) Zofran 2015-06 No Notes: Memoria 06-25 (Same as: l 23:23: Zofran) [place] 00 MEDICATION WASTE Product Size: 4 mg Product Wasted: ___ mg Morphine 2015-06 No Notes: Memoria 06-25 (Same l 23:23: as:MORPhin [place] 00 e Sulfate) Saline 2015-06 No Notes: Memoria Flush 0.9% -03 (Same as: l 23:07: BD [place] 00 Posiflush) Saline 2015-06 No Notes: Memoria Flush 0.9% 03 (Same as: l 23:07: BD [place] 00 Posiflush) furosemide 2015-06 Yes 20mg QD Take [address] (LASIX) 20 0-11 by mouth [facility] - MG tablet 09:11: daily. Medica l 14 Center potassium 2015-06 Yes 20meq QD Take [address] [facility] chloride SA 0-11 mEq by [facility] - (K-DUR,KLOR 09:11: mouth Medic al -CON) 20 14 daily . Center MEQ tablet hydrOXYzine 2015-06 Yes 25mg Take [address] [facility] (ATARAX) 25 0-11 by mouth Luke s - MG tablet 09:11: every Medical 14 night as Center needed (Sleep). Acetaminoph Yes 1 tab, PO, Memoria en 300 MG / 03-05 Q6H, PRN l Codeine 14:23: Pain, X 5 Ashley nn Phosphate 00 day, # 20 30 MG Oral tab, 0 Tablet Refill(s) Acetaminoph Yes 1 tab, PO, Memoria en 300 MG / 03-05 Q6H, PRN l Codeine 14:23: Pain, X 5 Ashley nn Phosphate 00 day, # 20 30 MG Oral tab, 0 Tablet Refill(s) Morphine No 4 mg, Memoria 03-05 Route: l 13:44: IVP, ONCE, Dosing Weight 129.091, kg, Priority: STAT, Start date: 03/05/16 8:44:00 CDT, Stop date: 03/05/16 8:44:00 CDT Morphine 2015-0 No 4 mg, Memoria 03-05 Route: l 13:44: IVP, ONCE, Dosing Weight 129.091, kg, Priority: STAT, Start date: 03/05/16 8:44:00 CDT, Stop date: 03/05/16 8:44:00 CDT Ondansetron 2015-0 No 4 mg, Memor ia 03-05 Route: l 12:35: IVP, Drug form: INJ, ONCE, Dosing Weight 129.091, kg, Priority: STAT, Start date: 03/05/16 7:35:00 CDT, Stop date: 03/05/16 7:35:00 CDT Ondansetron 2015-0 No 4 mg, Memor ia 03-05 Route: l 12:35: IVP, Drug form: INJ, ONCE, Dosing Weight 129.091, kg, Priority: STAT, Start date: 03/05/16 7:35:00 CDT, Stop date: 03/05/16 7:35:00 CDT Aspirin 2016-0 No 324 mg, Memoria 9-13 Route: PO, l 12:22: ONCE, Dosing Weight 129.091, kg, Priority: STAT, Start date: 03/05/16 7:22:00 CDT, Stop date: 03/05/16 7:22:00 CDT Morphine 2015-0 No 2 mg, Memoria 9-13 Route: l 12:22: IVP, ONCE, Dosing Weight 129.091, kg, Priority: STAT, Start date: 03/05/16 7:22:00 CDT, Stop date: 03/05/16 7:22:00 CDT Saline 0 No Notes: Memoria Flush 0.9% 9-13 (Same as: l 12:22: BD [place] 00 Posiflush) Aspirin 2015-0 No 324 mg, Memoria 9-13 Route: PO, l 12:22: ONCE, Dosing Weight 129.091, kg, Priority: STAT, Start date: 03/05/16 7:22:00 CDT, Stop date: 03/05/16 7:22:00 CDT Morphine 2015-0 No 2 mg, Memoria 9-13 Route: l 12:22: IVP, ONCE, Dosing Weight 129.091, kg, Priority: STAT, Start date: 03/05/16 7:22:00 CDT, Stop date: 03/05/16 7:22:00 CDT Saline 0 No Notes: Memoria Flush 0.9% 9-13 (Same as: l 12:22: BD Freddy Posiflush) Dilaudid 2015-0 No Notes: Memoria 9-10 Same as: l 12:40: Dilaudid Freddy 00 Dilaudid 2015-0 No Notes: Memoria 9-10 Same as: l 12:40: Dilaudid [place] 00 Ketorolac 2015-0 No 4 days Memor ia 9-10 l 10:25: MEDICATION WASTE Product Size: 30 mg Product Wasted: ___ mg Morphine 0 No Notes: Memoria 9-10 (Same l 10:25: as:MORPhin [place] 00 e Sulfate) Ondansetron 2015- No Notes: Bc jae 9-10 (Same as: l 10:25: Zofran) Freddy 00 MEDICATION WASTE Product Size: 4 mg Product Wasted: ___ mg Saline No Notes: Memoria Flush 0.9% 9-10 (Same as: l 10:25: BD Freddy 00 Posiflush) Sodium 2016-0 No 1,000 mL, Memori a Chloride 9-10 2,000 l 0.154 10:25: ml/hr, [place] MEQ/ML 00 Infuse Injectable Over: 30 Solution minutes, Route: IV, 1,000, Drug form: INJ, ONCE, Priority: STAT, Dosing Weight 128.636 kg, Start date: 03/02/16 5:25:00 CDT, Duration: 1 doses or times, Stop date: 03/02/16 5:25:00 CDT Ketorolac No 4 days Memor ia 9-10 l 10:25: MEDICATION Freddy 00 WASTE Product Size: 30 mg Product Wasted: ___ mg Morphine No Notes: Memoria 9-10 (Same l 10:25: as:MORPhin [place] 00 e Sulfate) Ondansetron No Notes: Bc jae 9-10 (Same as: l 10:25: Zofran) Freddy 00 MEDICATION WASTE Product Size: 4 mg Product Wasted: ___ mg Saline No Notes: Memoria Flush 0.9% 9-10 (Same as: l 10:25: BD Freddy 00 Posiflush) Sodium 2016-0 No 1,000 mL, Memori a Chloride 9-10 2,000 l 0.154 10:25: ml/hr, [place] MEQ/ML 00 Infuse Injectable Over: 30 Solution minutes, Route: IV, 1,000, Drug form: INJ, ONCE, Priority: STAT, Dosing Weight 128.636 kg, Start date: 03/02/16 5:25:00 CDT, Duration: 1 doses or times, Stop date: 03/02/16 5:25:00 CDT Acetaminoph 2015- Yes 1 tab, PO, Memoria en 300 MG / 02-18 Q6H, PRN l Codeine 23:44: Pain, # 28 Herm ca Phosphate 00 tab, 0 30 MG Oral Refill(s) Tablet [Tylenol with Codeine #3] Acetaminoph Yes 1 tab, PO, Memoria en 300 MG / 8- Q6H, PRN l Codeine 23:44: Pain, # 28 Herm ca Phosphate 00 tab, 0 30 MG Oral Refill(s) Tablet [Tylenol with Codeine #3] Protonix No Notes: Memoria 8-28 Tablet l 12:30: should not [place] 00 be chewed or crushed. (Same as: Protonix) Protonix No Notes: Memoria 8-28 Tablet l 12:30: should not [place] 00 be chewed or crushed. (Same as: Protonix) Lipitor No Notes: Memoria 8- (Same as: l 02:00: Lipitor) [place] 00 Lipitor No Notes: Memoria 8- (Same as: l 02:00: Lipitor) Freddy 00 Morphine No Notes: Memoria 8-27 (Same l 16:54: as:MORPhin [place] 00 e Sulfate) Morphine No Notes: Memoria 8-27 (Same l 16:54: as:MORPhin Freddy 00 e Sulfate) Lovenox No Notes: Memoria 8- (Same as: l 15:00: Lovenox) Freddy 00 Lovenox No Notes: Memoria 8-27 (Same as: l 15:00: Lovenox) Freddy 00 Lisinopril No Notes: Memor ia 8- (Same as: l 14:55: Prinivil, Freddy 00 Zestril) Lisinopril No Notes: Memor ia 8-27 (Same as: l 14:55: Prinivil, [place] 00 Zestril) Imdur No Notes: Memoria 8- (Same l 14:54: as:Imdur) Freddy 00 "Do Not Crush" Take on empty stomach/ full glass of water. Do not crush Plavix No Notes: Memoria 8-27 (Same As: l 14:54: Plavix) Freddy 00 Aspirin 81 No Notes: Do Me moria MG Enteric 8-27 not crush l Coated 14:54: or chew. [place] Tablet 00 (Same As: Ecotrin) Imdur No Notes: Memoria 8-27 (Same l 14:54: as:Imdur) [place] 00 "Do Not Crush" Take on empty stomach/ full glass of water. Do not crush Plavix No Notes: Memoria 8-27 (Same As: l 14:54: Plavix) [place] 00 Aspirin 81 No Notes: Do Me moria MG Enteric 8-27 not crush l Coated 14:54: or chew. [place] Tablet 00 (Same As: Ecotrin) Zofran ODT No Notes: Memor ia 8-27 (Same as: l 14:25: Zofran [place] 00 ODT) Nitroglycer No Notes: Bc jae in 0.4 MG 8-27 (Same l Sublingual 14:25: as:Nitroqu H ermann Tablet 00 ick, [Nitrostat] Nitrostat) "Do Not Crush" Sublingual tablet Zofran ODT No Notes: Memor ia 8-27 (Same as: l 14:25: Zofran [place] 00 ODT) Nitroglycer No Notes: Bc jae in 0.4 MG 8-27 (Same l Sublingual 14:25: as:Nitroqu H ermann Tablet 00 ick, [Nitrostat] Nitrostat) "Do Not Crush" Sublingual tablet Alprazolam No Notes: Memor ia 1 MG Oral 8-27 With food l Tablet 14:23: or milk Freddy [Xanax] 00 (Same as: Xanax) Alprazolam No Notes: Memor ia 1 MG Oral 8-27 With food l Tablet 14:23: or milk [place] [Xanax] 00 (Same as: Xanax) pneumococca No Notes: Bc jae l capsular 8-27 (Same as: l polysacchar 14:00: Pneumovax H ermann el type 1 23) vaccine / Refrigerat pneumococca e l capsular polysacchar el type 10A vaccine / pneumococca l capsular polysacchar el type 11A vaccine / pneumococca l capsular polysacchar el type 12F vaccine / pneumococca l capsular polysacchar pneumococca No Notes: Bc jae l capsular 02-16 (Same as: l polysacchar 14:00: Pneumovax H ermann el type 1 00 23) vaccine / Refrigerat pneumococca e l capsular polysacchar el type 10A vaccine / pneumococca l capsular polysacchar el type 11A vaccine / pneumococca l capsular polysacchar el type 12F vaccine / pneumococca l capsular polysacchar Potassium Yes 20 mEq = 1 Me moria Chloride 20 - tab, PO, l MEQ 13:07: Daily, # Freddy Extended 00 90 tab, 1 Release Refill(s) Tablet [Klor-Con] Alprazolam Yes 1 mg = 1 Mem oria 1 MG Oral 27 tab, PO, l Tablet 13:07: Q8H, PRN Freddy [Xanax] 00 Anxiety, 0 Refill(s) Metformin Yes 1 tab, PO, Me moria hydrochlori 02-16 BID, # 60 l de 500 MG / 13:07: tab, 0 Herm ca repaglinide 00 Refill(s) 1 MG Oral Tablet Acetaminoph No 1 tab, PO, Memoria en 300 MG / 02-16 Q6H, PRN l Codeine 13:07: Pain, # 28 Herm ca Phosphate 00 tab, 0 30 MG Oral Refill(s) Tablet [Tylenol with Codeine #3] lisinopril Yes 2.5 mg = 1 M emoria 2.5 mg oral -27 tab, PO, l tablet 13:07: Daily, # Freddy 00 30 tab, 0 Refill(s) clopidogrel Yes 75 mg = 1 M emoria 75 MG Oral 8-27 tab, PO, l Tablet 13:07: Daily, Lori Hayes [Plavix] 00 30 tab, 0 Refill(s) atorvastati Yes 80 mg = 1 M emoria n 80 MG 8-27 tab, PO, l Oral Tablet 13:07: Bedtime, # Freddy [Lipitor] 00 30 tab, 0 Refill(s) Ondansetron No 4 mg = 1 Me moria 4 MG 8-27 tab, PO, l Disintegrat 13:07: Q12H, PRN H ermann ing Tablet 00 Nausea, 0 [Zofran] Refill(s) Aspirin 81 Yes 81 mg = 1 Me moria MG Enteric 8-27 tab, PO, l Coated 13:07: Daily, # [place] Tablet 00 90 tab, 3 Refill(s) Nitroglycer No 0.4 mg = 1 Memoria in 0.4 MG 8-27 tab, SL, l Sublingual 13:07: Q5Min, PRN H ermann Tablet 00 Chest [Nitrostat] Pain, # 100 tab, 0 Refill(s) pantoprazol Yes 40 mg = 1 M emoria e 40 MG 8-27 tab, PO, l Enteric 13:07: Daily, # Fly n Coated 00 30 tab, 0 Tablet Refill(s) [Protonix] 24 HR Yes 30 mg = 1 Memoria Isosorbide 8-27 tab, PO, l Mononitrate 13:07: QAM, # 30 H ermann 30 MG 00 tab, 0 Extended Refill(s) Release Tablet [Imdur] Hydroxyzine No 25 mg = 1 M emoria Hydrochlori 8-27 tab, PO, l de 25 MG 13:07: Bedtime, Ashley nn Oral Tablet 00 PRN Sleep, # 30 tab, 0 Refill(s) Furosemide Yes 20 mg = 1 Me moria 20 MG Oral 8-27 tab, PO, l Tablet 13:07: Daily, # [place] 00 30 tab, 0 Refill(s) Potassium Yes 20 mEq = 1 Me moria Chloride 20 8-27 tab, PO, l MEQ 13:07: Daily, # [place] Extended 00 90 tab, 1 Release Refill(s) Tablet [Klor-Con] Alprazolam Yes 1 mg = 1 Mem oria 1 MG Oral 8-27 tab, PO, l Tablet 13:07: Q8H, PRN [place] [Xanax] 00 Anxiety, 0 Refill(s) Metformin Yes 1 tab, PO, Me moria hydrochlori 8-27 BID, # 60 l de 500 MG / 13:07: tab, 0 Herm ca repaglinide 00 Refill(s) 1 MG Oral Tablet Acetaminoph No 1 tab, PO, Memoria en 300 MG / - Q6H, PRN l Codeine 13:07: Pain, # 28 Herm ca Phosphate 00 tab, 0 30 MG Oral Refill(s) Tablet [Tylenol with Codeine #3] lisinopril Yes 2.5 mg = 1 M emoria 2.5 mg oral 8-27 tab, PO, l tablet 13:07: Daily, # Freddy 00 30 tab, 0 Refill(s) clopidogrel Yes 75 mg = 1 M emoria 75 MG Oral 8-27 tab, PO, l Tablet 13:07: Daily, # Freddy [Plavix] 00 30 tab, 0 Refill(s) atorvastati Yes 80 mg = 1 M emoria n 80 MG 8-27 tab, PO, l Oral Tablet 13:07: Bedtime, # Freddy [Lipitor] 00 30 tab, 0 Refill(s) Ondansetron No 4 mg = 1 Me moria 4 MG 8-27 tab, PO, l Disintegrat 13:07: Q12H, PRN H ermann ing Tablet 00 Nausea, 0 [Zofran] Refill(s) Aspirin 81 Yes 81 mg = 1 Me moria MG Enteric 8-27 tab, PO, l Coated 13:07: Daily, # Freddy Tablet 00 90 tab, 3 Refill(s) Nitroglycer No 0.4 mg = 1 Memoria in 0.4 MG 8-27 tab, SL, l Sublingual 13:07: Q5Min, PRN H ermann Tablet 00 Chest [Nitrostat] Pain, # 100 tab, 0 Refill(s) pantoprazol Yes 40 mg = 1 M emoria e 40 MG 8-27 tab, PO, l Enteric 13:07: Daily, # Fly n Coated 00 30 tab, 0 Tablet Refill(s) [Protonix] 24 HR Yes 30 mg = 1 Memoria Isosorbide 8-27 tab, PO, l Mononitrate 13:07: QAM, # 30 H ermann 30 MG 00 tab, 0 Extended Refill(s) Release Tablet [Imdur] Hydroxyzine No 25 mg = 1 M emoria Hydrochlori 8-27 tab, PO, l de 25 MG 13:07: Bedtime, Ashley nn Oral Tablet 00 PRN Sleep, # 30 tab, 0 Refill(s) Furosemide Yes 20 mg = 1 Me moria 20 MG Oral 8-27 tab, PO, l Tablet 13:07: Daily, # [place] 00 30 tab, 0 Refill(s) Ceftriaxone 0 No 1 gm, Memor ia 02-16 Route: l 12:01: IVPB, Drug form: PDR/INJ, ONCE, Dosing Weight 129.545, kg, Priority: STAT, Start date: 02/17/16 7:01:00 CDT, Stop date: 02/17/16 7:01:00 CDT Ceftriaxone No 1 gm, Memor ia 02-16 Route: l 12:01: IVPB, Drug form: PDR/INJ, ONCE, Dosing Weight 129.545, kg, Priority: STAT, Start date: 02/17/16 7:01:00 CDT, Stop date: 02/17/16 7:01:00 CDT Dilaudid 0 No 0.5 mg, Memori a 02-16 Route: l 11:28: IVP, ONCE, Dosing Weight 129.545, kg, Priority: STAT, Start date: 02/17/16 6:28:00 CDT, Stop date: 02/17/16 6:28:00 CDT Dilaudid 2015-0 No 0.5 mg, Memori a 02-16 Route: l 11:28: IVP, ONCE, Dosing Weight 129.545, kg, Priority: STAT, Start date: 02/17/16 6:28:00 CDT, Stop date: 02/17/16 6:28:00 CDT Zofran 2015-0 No 4 mg, Memoria 02-16 Route: l 10:32: IVP, Drug form: INJ, ONCE, Dosing Weight 129.545, kg, Priority: STAT, Start date: 02/17/16 5:32:00 CDT, Stop date: 02/17/16 5:32:00 CDT Dilaudid 0 No 0.5 mg, Memori a 02-16 Route: l 10:32: IVP, ONCE, Dosing Weight 129.545, kg, Priority: STAT, Start date: 02/17/16 5:32:00 CDT, Stop date: 02/17/16 5:32:00 CDT Zofran 2015- No 4 mg, Memoria 02-16 Route: l 10:32: IVP, Drug form: INJ, ONCE, Dosing Weight 129.545, kg, Priority: STAT, Start date: 02/17/16 5:32:00 CDT, Stop date: 02/17/16 5:32:00 CDT Dilaudid 2015-0 No 0.5 mg, Memori a 02-16 Route: l 10:32: IVP, ONCE, Dosing Weight 129.545, kg, Priority: STAT, Start date: 02/17/16 5:32:00 CDT, Stop date: 02/17/16 5:32:00 CDT Saline No Notes: Memoria Flush 0.9% 8-27 (Same as: l 10:19: BD Freddy Posiflush) Saline No Notes: Memoria Flush 0.9% 8-27 (Same as: l 10:19: BD [place] 00 Posiflush) pantoprazol Yes 40mg QD Take [address] [facility] 6-20 tablet (40 [facility] - (PROTONIX) 00:00: mg total) Me dical 40 MG 00 by mouth Center tablet daily. Vital Signs Vital Name Observation Time Observation Value Comments Source Respitory Rate 2016-05-17 23:59:00 Phuongori al Freddy Temperature Oral (F) 2016-05-17 23:59:00 98.1 F [facility] Heart Rate 2016-05-17 23:59:00 [facility] Sy[facility]) 2016-05-17 23:59:00 Bc jael Freddy Diastolic (mm Hg) 2016-05-17 23:59:00 Mem orial Freddy Weight 2016-05-17 21:43:00 [facility] Temperature Oral (F) 2016-05-17 21:43:00 97.6 F [facility] Rate 2016-05-17 21:43:00 [facility] al Freddy Heart Rate 2016-05-17 21:43:00 [facility]dy Systolic (mm Hg) 2016-05-17 21:43:00 Bc rial Freddy Diastolic (mm Hg) 2016-05-17 21:43:00 Mem orial Freddy Respitory Rate 2016-05-06 21:58:00 Memori al Freddy Systolic (mm Hg) 2016-05-06 21:58:00 Bc rial [place] Diastolic (mm Hg) 2016-05-06 21:58:00 Mem orial Freddy Heart Rate 2016-05-06 21:58:00 [facility] [place] Temperature Oral (F) 2016-05-06 21:58:00 97.9 F [facility] Freddy Respitory Rate 2016-05-06 19:19:00 Memori al Freddy Temperature Oral (F) 2016-05-06 17:24:00 97.4 F [facility] [place] Systolic (mm Hg) 2016-05-06 17:24:00 Bc rial [place] Diastolic (mm Hg) 2016-05-06 17:24:00 Mem orial Freddy Respitory Rate 2016-05-06 17:24:00 [facility]ori al Freddy Heart Rate 2016-05-06 17:24:00 [facility] Freddy Systolic (mm Hg) 2016-05-06 16:20:00 Bc rial [place] Diastolic (mm Hg) 2016-05-06 16:20:00 Mem orial Freddy Heart Rate 2016-05-06 16:20:00 [facility] Freddy Temperature Oral (F) 2016-05-06 16:20:00 97.9 F [facility] [place] Weight 2016-05-06 03:12:00 [facility] Freddy BMI Calculated 2016-05-06 03:12:00 [facility] al [place] Height 2016-05-06 03:12:00 177.8 cm [facility] [place] Weight 2016-05-05 23:05:00 [facility] [place] Systolic (mm Hg) 2016-04-26 01:24:00 Bc rial Freddy Diastolic (mm Hg) 2016-04-26 01:24:00 Mem orial [place] Respitory Rate 2016-04-26 01:24:00 [facility]ori al Freddy Heart Rate 2016-04-26 01:24:00 [facility] [place] Temperature Oral (F) 2016-04-26 01:24:00 97.4 F [facility] [place] Weight 2016-04-25 23:04:00 [facility] [place] BMI Calculated 2016-04-25 23:04:00 Memori al Freddy Height 2016-04-25 23:04:00 177.8 cm [facility] [place] Respitory Rate 2016-04-25 23:04:00 Memori al [place] Temperature Oral (F) 2016-04-25 23:04:00 97.2 F [facility] [place] Heart Rate 2016-04-25 23:04:00 [facility] [place] Systolic (mm Hg) 2016-04-25 23:04:00 Bc rial [place] Diastolic (mm Hg) 2016-04-25 23:04:00 Mem orial [place] Temperature Oral (F) 2016-03-05 14:32:00 98.7 F [facility] Freddy Respitory Rate 2016-03-05 14:32:00 [facility] al [place] Systolic (mm Hg) 2016-03-05 14:32:00 Bc rial [place] Diastolic (mm Hg) 2016-03-05 14:32:00 Mem orial [place] Respitory Rate 2016-03-05 12:48:00 Memori al Freddy Systolic (mm Hg) 2016-03-05 12:48:00 Bc rial [place] Diastolic (mm Hg) 2016-03-05 12:48:00 Mem orial [place] Systolic (mm Hg) 2016-03-05 12:06:00 Bc rial Freddy Diastolic (mm Hg) 2016-03-05 12:06:00 Mem orial [place] Height 2016-03-05 12:06:00 177.8 cm [facility] Freddy BMI Calculated 2016-03-05 12:06:00 Memori al Freddy Weight 2016-03-05 12:06:00 [facility] [place] Heart Rate 2016-03-05 12:06:00 [facility] [place] Temperature Oral (F) 2016-03-05 12:06:00 98.9 F [facility] [place] Respitory Rate 2016-03-05 12:06:00 Memori al Freddy Temperature Oral (F) 2016-03-02 14:14:00 98.2 F [facility] [place] Heart Rate 2016-03-02 14:14:00 [facility] [place] Respitory Rate 2016-03-02 14:14:00 Memori al Freddy Systolic (mm Hg) 2016-03-02 12:39:00 Bc rial Freddy Diastolic (mm Hg) 2016-03-02 12:39:00 Mem orial Freddy Heart Rate 2016-03-02 12:39:00 [facility] [place] Weight 2016-03-02 10:03:00 [facility] Freddy Temperature Oral (F) 2016-03-02 10:03:00 98.0 F [facility]dy Respitory Rate 2016-03-02 10:03:00 Memori al Freddy Systolic (mm Hg) 2016-03-02 10:03:00 Bc rial Freddy Diastolic (mm Hg) 2016-03-02 10:03:00 Mem orial [place] Heart Rate 2016-03-02 10:03:00 [facility] [place] Systolic (mm Hg) 2016-02-20 01:05:00 Bc rial [place] Diastolic (mm Hg) 2016-02-20 01:05:00 Mem orial [place] Temperature Oral (F) 2016-02-20 01:05:00 98.0 F [facility] Freddy Respitory Rate 2016-02-20 01:05:00 Memori al [place] Heart Rate 2016-02-20 01:05:00 [facility]dy Heart Rate 2016-02-19 20:37:00 [facility] [place] Respitory Rate 2016-02-19 20:37:00 Memori al [place] Temperature Oral (F) 2016-02-19 20:37:00 97.8 F [facility] [place] Systolic (mm Hg) 2016-02-19 20:37:00 Bc rial [place] Diastolic (mm Hg) 2016-02-19 20:37:00 Mem orial Freddy Systolic (mm Hg) 2016-02-19 17:00:00 Bc rial [place] Diastolic (mm Hg) 2016-02-19 17:00:00 Mem orial Freddy Heart Rate 2016-02-19 17:00:00 [facility] Freddy Temperature Oral (F) 2016-02-19 17:00:00 97.9 F [facility]dy Respitory Rate 2016-02-19 17:00:00 Memori al Freddy Height 2016-02-17 13:19:00 177.8 cm [facility] Freddy BMI Calculated 2016-02-17 13:19:00 Memori al [place] Weight 2016-02-17 13:19:00 [facility] [place] Weight 2016-02-17 10:16:00 [facility] Freddy BMI Calculated 2016-02-17 10:16:00 Zane al Freddy Height 2016-02-17 10:16:00 177.8 cm [facility] Procedures Procedure Date / Time Performing Clinician Source Performed Catheterization of right Greg l Freddy heart [facility]ri[facility] Pl[facility] in [facility] ermann cardiac conduit<sup>1</sup> Encounters Start End Encounter Admission Attending Care Care Encounter Source Date/Time Date/Time Type Type Clinicians Facility Department ID 2016-05-17 2016-05-17 Outpatient Merlyn, [facility] [id number] 15:36:00 18:01:00 Karey 05 Nancie Bingham 2016-05-17 2016-05-17 Outpatient Merlyn, [facility]PL [facility]PL [id number] 15:36:00 18:01:00 Karey 05 Nancie Bingham 2016-05-05 2016-05-06 Outpatient Dhamotharan [facility] [id number] 16:51:00 18:35:00 , Mayo 2016-05-05 2016-05-06 Outpatient Dhamotharan [facility] MHPL [id number] 16:51:00 18:35:00 , Mayo 2016-04-25 2016-04-25 Outpatient Weathers, [facility]PL [facility] [id number] 18:01:00 21:08:00 Agustin Elam 2016-04-25 2016-04-25 Outpatient Weathers, [facility]PL [facility] [id number] 18:01:00 21:08:00 Agustin Elam 2016-03-05 2016-03-05 Outpatient Best, [facility]PL MHPL [id number] 06:59:00 09:36:00 Rachel Sewell 2016-03-05 2016-03-05 Outpatient Best, [facility]PL MHPL [id number] 06:59:00 09:36:00 Rachel Sewell 2016-03-02 2016-03-02 Outpatient Jaquan, [facility]PL [facility]PL [id number] 05:00:00 09:17:00 Fei Cabezas 2016-03-02 2016-03-02 Outpatient GHADA PartidaPL [facility]PL [id number] 05:00:00 09:17:00 Fei Cabezas 2016-02-17 2016-02-19 Outpatient Alejandra [facility] [id number] 05:13:00 20:44:00 Osmar 00 Esau 2016-02-17 2016-02-19 Outpatient Alejandra [facility] [id number] 05:13:00 20:44:00 Osmar 00 Esau Results Test Description Test Time Test Comments [...] previously reported as: 1. 05 ARTERIAL THROMBOPHILIA [id number] 12:28:00 Test Item Value Reference Interpretation Comments Range PROTHROMBIN 3 NO MUTATION () PROTHROMBIN (F ACTOR II) UNTRANSLATED DETECTED 52460R>A MUTATI ON (test code = INTERPRETATION: This [id number]) individual is n egative (normal) for th e [id number] in the Prothrombin/Fac tor II gene. Increased risko f thrombophilia c an be caused by a variety of genetic andnon-genetic factors not screened for th is assay. Laboratory test ing supervised and results guerrero Knox, Ph.D., DABMG, H CLD, CGMB. MUTATION ANALYS IS:The K86266O mutation [IG783957.1:g.2 1538G>A (c.*97G>A)] int he Prothrombin/Fac tor II gene is the second most commoninherited risk factor for thrombosis occuring inapproximately 2% of Caucasians. Pre sence of the mutation isasso ciated with an elevation of pr othrombin levels to about 30% above normal in heter ozygotes and 70% above olivia l inhomozygotes. The S60783G mutation is det ected bypolymerase ch ain [...] performancechar acteristics have been deter mined by [facility] Leonard lazo. It has not beencleared or approved by the FDA. Thi s assay has beenvalidated p ursuant to the CLIA regulation s and is used forclinical pur poses. Health care providers, please contact your filipe [employer]y [employer] ' genetic counselor or flex lind [phone]( [phone]) for assistance with interpretation of theseresults. P erformed by: [facility] justyn/Kirstie [facility] FLEX [place] [id number] ACTIVATED PROT C 3.09 RATIO 2.31-5.00 Ratios [...] supervised and results guerrero Cardoza , Ph.D., [facility]. MU TATION ANALYSIS:The Fa ctor v Leiden (R560Q) mutatio n [NM 464657.2: c.160 1G>A(p.R534Q)] in the Factor V gene [...] performancechar acteristics have been deter mined by [facility] Leonard lazo. It has not beencleared or approved by the FDA. Thi s assay has beenvalidated p ursuant to the CLIA regulation s and is used forclinical pur poses. Health care providers, please contact your filipe causey [employer] ' genetic counselor or flex lind [phone]( [phone]) for assistance with interpretation of theseresults. P erformed by: [facility] justyn/Kirstie [facility] Sa FLEX [place] [id number] PROTEIN S FREE 56 % 68-126 L [...] in cluded into the APS criteri a. YAMK-4-JNQQI I 0.8 SMU 0.0-20.0 IGM (test code = GPIIGM) RKNQ-1-HTTIY I 0.0 SGU 0.0-20.0 IGG (test code = GPIIGG) SLXD-2-NQGAL I 0.5 AHMET 0.0-20.0 The Antiphosp holipid [...] 0.000-0.747 H CRP (test code = CRPHS) [id number] 12:28:00 Test Item Value Reference Range Interpretation Comments FIBRINOGEN (test 640 MG/DL 160-450 H Excess admi nistration of code = FIB) anticoagulants and/or FibrinDegradati on Products may af fect Fibrinogen valu e. FACTOR [id number] 12:28:00 Test Item Value Reference Range Interpretation [...] vels are not clinicallysigni ficant. PROTEIN C [id number] 12:28:00 Test Item Value Reference Range Interpretation [...] levels of Prote in C. PROTEIN C [id number] 12:28:00 Test Item Value Reference Range Interpretation Comments PROTEIN C ANTIGENIC 71 % 70-140 Decrease d levels of (test code = PROTCAG) Protei n C Antigen may be found incongeni hetal deficiency, jerome atment with oral anticoagulants, liver disease, D.I.C. and post surgery. Perfor med by: [facility] cs/[place] [address] PROTEIN S [id number] 12:28:00 Test Item Value Reference Range Interpretation Comments PROTEIN S TOTAL 68 % 70-140 L Performed by : [facility] (test code = Diagnostics/Misael hols [facility] [place]STOT) [place] [address] PROTEIN S FUNC 70 % 74-148 L [...] anincreased thrombotic risk . MTHF REDUCTASE (PCR) [id number] 12:28:00 Test Item Value Reference Range Interpretation Comments MTHF REDUCTASE (PCR) 677 TEST NOT PERFORMED (test code = MTHFR 677) LUPUS ANTICOAGULANT [id number] 11:48:00 Test Item Value Reference Range Interpretation [...] iously reported result : 1.05 Edited by: [facility] E on 07/06/18:[id number] 1510: SILICA C LOTTING previously repo rted as: 1.05 ARTERIAL THROMBOPHILIA [id number] 11:48:00 Test Item Value Reference Interpretation Comments Range PROTHROMBIN 3 NO MUTATION () PROTHROMBIN (F ACTOR II) UNTRANSLATED DETECTED 43810C>A MUTATI ON (test code = INTERPRETATION: This [id number]) individual is n egative (normal) for th e [id number] in the Prothrombin/Fac tor II gene. Increased risko f thrombophilia c an be caused by a variety of genetic andnon-genetic factors not screened for th is assay. Laboratory test ing supervised and results guerrero Knox, Ph.D., DABMG, H CLD, CGMB. MUTATION ANALYS IS:The U39289R mutation [KO922344.1:g.2 1538G>A (c.*97G>A)] int he Prothrombin/Fac tor II gene is the second most commoninherited risk factor for thrombosis occuring inapproximately 2% of Caucasians. Pre sence of the mutation isasso ciated with an elevation of pr othrombin levels to about 30% above normal in heter ozygotes and 70% above olivia l inhomozygotes. The O84153U mutation is det ected bypolymerase ch ain [...] performancechar acteristics have been deter mined by [facility] Jamarcus lazo. It has not beencleared or approved by the FDA. Thi s assay has beenvalidated p ursuant to the CLIA regulation s and is used forclinical pur poses. Health care providers, please contact your [facility] [employer] ' genetic counselor or flex [phone]( [phone]) for assistance with interpretation of theseresults. P erformed by: [facility] alejandra/Kirstie [facility] [place] [id number] ACTIVATED PROT C 3.09 RATIO 2.31-5.00 Ratios [...] supervised and results guerrero Cardoza , Ph.D., [facility]. MU TATION ANALYSIS:The Fa ctor v Leiden (R560Q) mutatio n [NM 668722.2: c.160 1G>A(p.R534Q)] in the Factor V gene [...] performancechar acteristics have been deter mined by [facility] Leonard lazo. It has not beencleared or approved by the FDA. Thi s assay has beenvalidated p ursuant to the CLIA regulation s and is used forclinical pur poses. Health care providers, please contact your [facility] [employer] ' genetic counselor or [facility] [phone]( [phone]) for assistance with interpretation of theseresults. P erformed by: [employer] Diagnosallen alejandra/Kirstie [facility] [place] [id number] PROTEIN S FREE 56 % 68-126 L [...] in cluded into the APS criteri a. EOFH-4-HAXZK I 0.8 SMU 0.0-20.0 IGM (test code = GPIIGM) TFHQ-0-UVASK I 0.0 SGU 0.0-20.0 IGG (test code = GPIIGG) IYLI-6-WBFKS I 0.5 AHMET 0.0-20.0 The Antiphosp holipid [...] 0.000-0.747 H CRP (test code = CRPHS) [id number] 11:48:00 Test Item Value Reference Range Interpretation Comments FIBRINOGEN (test 640 MG/DL 160-450 H Excess admi nistration of code = FIB) anticoagulants and/or FibrinDegradati on Products may af fect Fibrinogen valu e. FACTOR [id number] 11:48:00 Test Item Value Reference Range Interpretation [...] vels are not clinicallysigni ficant. PROTEIN C [id number] 11:48:00 Test Item Value Reference Range Interpretation [...] levels of Prote in C. PROTEIN C [id number] 11:48:00 Test Item Value Reference Range Interpretation Comments PROTEIN C ANTIGENIC 71 % 70-140 Decrease d levels of (test code = PROTCAG) Protei n C Antigen may be found incongeni hetal deficiency, jerome atment with oral anticoagulants, liver disease, D.I.C. and post surgery. Perfor med by: [facility] [place] [address] PROTEIN S [id number] 11:48:00 Test Item Value Reference Range Interpretation Comments PROTEIN S TOTAL 68 % 70-140 L Performed by : [facility] (test code = Diagnostics/Misael hols [facility] PR[place]STOT) [place] [address] PROTEIN S FUNC 70 % 74-148 L [...] anincreased thrombotic risk . MTHF REDUCTASE (PCR) [id number] 11:48:00 Test Item Value Reference Range Interpretation Comments MTHF REDUCTASE (PCR) 677 (test code = MTHFR 677) LUPUS ANTICOAGULANT [id number] 11:04:00 Test Item Value Reference Range Interpretation [...] : 1.05 Edited by: ADDY Zhang on 07/06/18:[id number] 1510: SILICA C LOTTING previously repo rted as: 1.05 ARTERIAL THROMBOPHILIA [id number] 11:04:00 Test Item Value Reference Interpretation Comments Range PROTHROMBIN 3 NO MUTATION () PROTHROMBIN (F ACTOR II) UNTRANSLATED DETECTED 98508Z>A MUTATI ON (test code = INTERPRETATION: This [id number]) individual is n egative (normal) for th e [id number] in the Prothrombin/Fac tor II gene. Increased risko f thrombophilia c an be caused by a variety of genetic andnon-genetic factors not screened for th is assay. Laboratory test ing supervised and results guerrero Knox, Ph.D., DABMG, H CLD, CGMB. MUTATION ANALYS IS:The [id number] mutation [[id number]:g.2 1538G>A (c.*97G>A)] int he Prothrombin/Fac tor II gene is the second most commoninherited risk factor for thrombosis occuring inapproximately 2% of Caucasians. Pre sence of the mutation isasso ciated with an elevation of pr othrombin levels to about 30% above normal in heter ozygotes and 70% above olivia l inhomozygotes. The [id number] mutation is det ected bypolymerase ch ain [...] performancechar acteristics have been deter mined by [facility] lazo. It has not beencleared or approved by the FDA. Thi s assay has beenvalidated p ursuant to the CLIA regulation s and is used forclinical pur poses. Health care providers, please contact your filipe causey [employer] ' genetic counselor or flex lind [phone]( [phone]) for assistance with interpretation of theseresults. P erformed by: [facility] justyn/[facility] FLEX [place] [id number] ACTIVATED PROT C 3.09 RATIO 2.31-5.00 Ratios [...] supervised and results guerrero Cardoza , Ph.D., [facility]. MU TATION ANALYSIS:The Fa ctor v Leiden (R560Q) mutatio n [NM 475908.2: c.160 1G>A(p.R534Q)] in the Factor V gene [...] performancechar acteristics have been deter mined by [facility] Leonard lazo. It has not beencleared or approved by the FDA. Thi s assay has beenvalidated p ursuant to the CLIA regulation s and is used forclinical pur poses. Health care providers, please contact your [facility] [employer] ' genetic counselor or flex lind [phone]( [phone]) for assistance with interpretation of theseresults. P erformed by: [facility] FLEX [place] [id number] PROTEIN S FREE 56 % 68-126 L [...] in cluded into the APS criteri a. HBVX-6-KFRYL I SMU 0.0-20.0 IGM (test code = GPIIGM) EMUO-5-VPADL I SGU 0.0-20.0 IGG (test code = GPIIGG) FPXR-6-YJAXX I 0.5 AHMET 0.0-20.0 The Antiphosp holipid [...] 0.000-0.747 H CRP (test code = CRPHS) [id number] 11:04:00 Test Item Value Reference Range Interpretation Comments FIBRINOGEN (test 640 MG/DL 160-450 H Excess admi nistration of code = FIB) anticoagulants and/or FibrinDegradati on Products may af fect Fibrinogen valu e. FACTOR [id number] 11:04:00 Test Item Value Reference Range Interpretation [...] vels are not clinicallysigni ficant. PROTEIN C [id number] 11:04:00 Test Item Value Reference Range Interpretation [...] levels of Prote in C. PROTEIN C [id number] 11:04:00 Test Item Value Reference Range Interpretation Comments PROTEIN C ANTIGENIC 71 % 70-140 Decrease d levels of (test code = PROTCAG) Protei n C Antigen may be found incongeni hetal deficiency, jerome atment with oral anticoagulants, liver disease, D.I.C. and post surgery. Perfor med by: [facility] [place] [address] PROTEIN S [id number] 11:04:00 Test Item Value Reference Range Interpretation Comments PROTEIN S TOTAL 68 % 70-140 L Performed by : [facility] (test code = Diagnostics/Misael hols [facility] [place]) [place] [address] PROTEIN S FUNC 70 % 74-148 L [...] anincreased thrombotic risk . MTHF REDUCTASE (PCR) [id number] 11:04:00 Test Item Value Reference Range Interpretation Comments MTHF REDUCTASE (PCR) 677 (test code = MTHFR 677) LUPUS ANTICOAGULANT [id number] 11:03:00 Test Item Value Reference Range Interpretation [...] : 1.05 Edited by: ADDY Zhang on 07/06/18:269602 1510: SILICA C LOTTING previously repo rted as: 1.05 ARTERIAL THROMBOPHILIA [id number] 11:03:00 Test Item Value Reference Interpretation Comments Range PROTHROMBIN 3 NO MUTATION () PROTHROMBIN (F ACTOR II) UNTRANSLATED DETECTED 64258D>A MUTATI ON (test code = INTERPRETATION: This AN8EBGT) individual is n egative (normal) for th e D11492Bgtfuzgyf in the Prothrombin/Fac tor II gene. Increased risko f thrombophilia c an be caused by a variety of genetic andnon-genetic factors not screened for th is assay. Laboratory test ing supervised and results guerrero Knox, Ph.D., DABMG, H CLD, CGMB. 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 Pre sence of the mutation isasso ciated with an elevation of pr othrombin levels to about 30% above normal in heter ozygotes and 70% above olivia l inhomozygotes. The M69259V mutation is det ected bypolymerase ch ain [...] performancechar acteristics have been deter mined by [facility] Leonard lazo. It has not beencleared or approved by the FDA. Thi s assay has beenvalidated p ursuant to the CLIA regulation s and is used forclinical pur poses. Health care providers, please contact your [facility] [employer] ' genetic counselor or flex [phone]( [phone]) for assistance with interpretation of theseresults. P erformed by: [facility] alejandra/[facility] FLEX [place] [id number] ACTIVATED PROT C 3.09 RATIO 2.31-5.00 Ratios [...] supervised and results guerrero Cardoza , Ph.D., [facility]. MU TATION ANALYSIS:The Fa ctor v Leiden (R560Q) mutatio n [NM 401224.2: c.160 1G>A(p.R534Q)] in the Factor V gene [...] performancechar acteristics have been deter mined by [facility] DarkeJamarcus Beckham clifton. It has not beencleared or approved by the FDA. Thi s assay has beenvalidated p ursuant to the CLIA regulation s and is used forclinical pur poses. Health care providers, please contact your [facility] [employer] ' genetic counselor or [facility] [phone]( [phone]) for assistance with interpretation of theseresults. P erformed by: [facility] alejandra/[facility] [place] [address] PROTEIN S FREE 56 % 68-126 L [...] in cluded into the APS criteri a. LBDW-2-GXZKC I SMU 0.0-20.0 IGM (test code = GPIIGM) FEMB-8-GFKGZ I SGU 0.0-20.0 IGG (test code = GPIIGG) UENB-1-MXYON I 0.5 AHMET 0.0-20.0 The Antiphosp holipid [...] 0.000-0.747 H CRP (test code = CRPHS) [id number] 11:03:00 Test Item Value Reference Range Interpretation Comments FIBRINOGEN (test 640 MG/DL 160-450 H Excess admi nistration of code = FIB) anticoagulants and/or FibrinDegradati on Products may af fect Fibrinogen valu e. FACTOR [id number] 11:03:00 Test Item Value Reference Range Interpretation [...] vels are not clinicallysigni ficant. PROTEIN C [id number] 11:03:00 Test Item Value Reference Range Interpretation [...] levels of Prote in C. PROTEIN C [id number] 11:03:00 Test Item Value Reference Range Interpretation Comments PROTEIN C ANTIGENIC 71 % 70-140 Decrease d levels of (test code = PROTCAG) Protei n C Antigen may be found incongeni hetal deficiency, jerome atment with oral anticoagulants, liver disease, D.I.C. and post surgery. Perfor med by: [facility] justyn/[place] [address] PROTEIN S [id number] 11:03:00 Test Item Value Reference Range Interpretation [...] anincreased thrombotic risk . MTHF REDUCTASE (PCR) [id number] 11:03:00 Test Item Value Reference Range Interpretation Comments MTHF REDUCTASE (PCR) 677 (test code = MTHFR 677) LUPUS ANTICOAGULANT [id number] 21:21:00 Test Item Value Reference Range Interpretation [...] iously reported result : 1.05 Edited by: INFGenna Zhang on 07/06/18:176275 1510: SILICA C LOTTING previously repo rted as: 1.05 ARTERIAL THROMBOPHILIA [id number] 21:21:00 Test Item Value Reference Interpretation Comments Range PROTHROMBIN 3 UNTRANSLATED (test code = EI6WCRQ) ACTIVATED PROT C 3.09 RATIO 2.31-5.00 Ratios [...] been included i nto the APS criteria. TQLT-3-MQQID I SMU 0.0-20.0 IGM (test code = GPIIGM) SOFQ-3-UAUFU I SGU 0.0-20.0 IGG (test code = GPIIGG) BWQJ-4-HGWVB I 0.5 AHMET 0.0-20.0 The Antiphosp holipid [...] 0.000-0.747 H CRP (test code = CRPHS) [id number] 21:21:00 Test Item Value Reference Range Interpretation Comments FIBRINOGEN (test 640 MG/DL 160-450 H Excess admi nistration of code = FIB) anticoagulants and/or FibrinDegradati on Products may af fect Fibrinogen valu e. FACTOR [id number] 21:21:00 Test Item Value Reference Range Interpretation [...] vels are not clinicallysigni ficant. PROTEIN C [id number] 21:21:00 Test Item Value Reference Range Interpretation [...] levels of Prote in C. PROTEIN C [id number] 21:21:00 Test Item Value Reference Range Interpretation Comments PROTEIN C ANTIGENIC 71 % 70-140 Decrease d levels of (test code = PROTCAG) Protei n C Antigen may be found incongeni hetal deficiency, jerome atment with oral anticoagulants, liver disease, D.I.C. and post surgery. Perfor med by: [facility] justyn/[place] [address] PROTEIN S [id number] 21:21:00 Test Item Value Reference Range Interpretation [...] anincreased thrombotic risk . MTHF REDUCTASE (PCR) [id number] 21:21:00 Test Item Value Reference Range Interpretation Comments MTHF REDUCTASE (PCR) 677 (test code = MTHFR 677) ANTIPHOSPHATIDYL SERINE [id number] 16:18:00 Test Item Value Reference Range Interpretation Comments APS ABS IGG (test 2 GPS IgG 0-11 Performed At: [facility] code = APSIGG) [address] [id number] ra Lynne PHILLIP Ph:[phone] 4 APS ABS IGM (test 5 MPS IgM 0-25 code = APSIGM) APS ABS IGA (test 1 APS IgA 0-20 code = APSIGA) ARTERIAL THROMBOPHILIA [id number] 14:43:00 Test Item Value Reference Interpretation Comments Range PROTHROMBIN 3 UNTRANSLATED (test code = LR0ANYN) ACTIVATED PROT C 3.09 RATIO 2.31-5.00 Ratios [...] been included i nto the APS criteria. OGSH-3-ZACMA I SMU 0.0-20.0 IGM (test code = GPIIGM) BSNN-8-PCONB I SGU 0.0-20.0 IGG (test code = GPIIGG) RUEY-7-DDVHD I 0.5 AHMET 0.0-20.0 The Antiphosp holipid [...] 0.000-0.747 H CRP (test code = CRPHS) [id number] 14:43:00 Test Item Value Reference Range Interpretation Comments FIBRINOGEN (test 640 MG/DL 160-450 H Excess admi nistration of code = FIB) anticoagulants and/or FibrinDegradati on Products may af fect Fibrinogen valu e. FACTOR [id number] 14:43:00 Test Item Value Reference Range Interpretation [...] vels are not clinicallysigni ficant. PROTEIN C [id number] 14:43:00 Test Item Value Reference Range Interpretation [...] levels of Prote in C. PROTEIN C [id number] 14:43:00 Test Item Value Reference Range Interpretation Comments PROTEIN C ANTIGENIC 71 % 70-140 Decrease d levels of (test code = PROTCAG) Protei n C Antigen may be found incongeni hetal deficiency, jerome atment with oral anticoagulants, liver disease, D.I.C. and post surgery. Perfor med by: [facility] justyn/[place] [address] PROTEIN S [id number] 14:43:00 Test Item Value Reference Range Interpretation [...] anincreased thrombotic risk . MTHF REDUCTASE (PCR) [id number] 14:43:00 Test Item Value Reference Range Interpretation Comments MTHF REDUCTASE (PCR) 677 (test code = MTHFR 677) LUPUS ANTICOAGULANT [id number] 14:43:00 Test Item Value Reference Range Interpretation [...] Sec PTT) Effective 07/21/2013 PTT 1:1 MIX SLOPE TENDER (test SECS code = PTTMIX2) PTT 1:3 [...] : 1.05 Edited by: ADDY Zhang on 07/06/18:330697 / 1510: SILICA C LOTTING previously repo rted as: 1.05 LUPUS ANTICOAGULANT [id number] 14:31:00 Test Item Value Reference Range Interpretation [...] Sec PTT) Effective 07/21/2013 PTT 1:1 MIX SLOPE TENDER (test SECS code = PTTMIX2) PTT 1:3 [...] : 1.05 Edited by: ADDY Zhang on 07/06/18:161123 1510: SILICA C LOTTING previously repo rted as: 1.05 ARTERIAL THROMBOPHILIA [id number] 14:31:00 Test Item Value Reference Interpretation Comments Range PROTHROMBIN 3 UNTRANSLATED (test code = OJ8WFJC) ACTIVATED PROT C 3.09 RATIO 2.31-5.00 Ratios [...] been included i nto the APS criteria. KQGU-0-RFJGH I SMU <20 IGM (test code = GPIIGM) IOVP-7-JWSHC I UNITS <20 IGG (test code = GPIIGG) WMRN-4-VWAOA I 0.0-20.0 IGA (test code = GPIIGA) HOMOCYSTEINE TEST NOT 3.2-10.7 (test code = PERFORMED HOMOCY) umol/L HIGH SENSITIVITY mg/dl 0.000-0.747 H CRP (test code = CRPHS) [id number] 14:31:00 Test Item Value Reference Range Interpretation Comments FIBRINOGEN (test 640 MG/DL 160-450 H Excess admi nistration of code = FIB) anticoagulants and/or FibrinDegradati on Products may af fect Fibrinogen valu e. FACTOR [id number] 14:31:00 Test Item Value Reference Range Interpretation [...] vels are not clinicallysigni ficant. PROTEIN C [id number] 14:31:00 Test Item Value Reference Range Interpretation [...] levels of Prote in C. PROTEIN C [id number] 14:31:00 Test Item Value Reference Range Interpretation Comments PROTEIN C ANTIGENIC 71 % 70-140 Decrease d levels of (test code = PROTCAG) Protei n C Antigen may be found incongeni hetal deficiency, jerome atment with oral anticoagulants, liver disease, D.I.C. and post surgery. Perfor med by: [facility]/[place] [address] PROTEIN S [id number] 14:31:00 Test Item Value Reference Range Interpretation [...] anincreased thrombotic risk . MTHF REDUCTASE (PCR) [id number] 14:31:00 Test Item Value Reference Range Interpretation Comments MTHF REDUCTASE (PCR) 677 (test code = MTHFR 677) URINE AND [id number] 23:16:00Negative (05/17/16 5:16 PM)[facility] URINE AND [id number] 23:16:00Negative *NA*(05/17/16 5:16 PM[facility] [id number] 23:16:00Negative (05/17/16 5:16 PM)[facility] [id number] 23:16:000.2[facility] STOOL 2016-05-17 23:16:00Clear (05/17/16 5:16 PM)[facility] 2016-05-17 23:16:00Negative (05/17/16 5:16 PM)[facility] 2016-05-17 23:16:00 Test Item Value Reference Range Interpretation Comments UA pH (test code = UA pH) 6.5 1 5.0-8.0 [facility] [id number] 23:16:00 Test Item Value Reference Range Interpretation Comments UA Spec Grav (test code = UA Spec 1.020 1 Grav) [facility] [id number] 23:16:00Yellow *NA*(05/17/16 5:16 PM) [facility] [id number] 23:16:00Negative (05/17/16 5:16 PM) [facility] [id number] 23:16:00Negative *NA*(05/17/16 5:16 PM)[facility] [id number] 23:16:00Negative (05/17/16 5:16 PM) [facility] [id number] 23:16:000.2[facility] [id number] 23:16:00Clear (05/17/16 5:16 PM)[facility] STOOL 2016-05-17 23:16:00Negative (05/17/16 5:16 PM)[facility] STOOL 2016-05-17 23:16:00 Test Item Value Reference Range Interpretation Comments UA pH (test code = UA pH) 6.5 1 5.0-8.0 [facility] [id number] 23:16:00 Test Item Value Reference Range Interpretation Comments UA Spec Grav (test code = UA Spec 1.020 1 Grav) [facility] [id number] 23:16:00Yellow *NA*(05/17/16 5:16 PM) [facility]ann[facility]ARDIAC [id number] 22:01:0074[facility]annCARD[facility]AC IONPGXW1047-06-29 22:01:000.8[facility]annCARDIAC BYSHDKC4191-83-20 22:01:00 <0.02[facility]annCARDIAC DQSAWWL8806-32-08 22:01:001.1[facility] CHEM YCLMJ5123-22-21 22:01:0079[facility]annCHEM [id number] 22:01:05505 [facility]ann[facility] TVWRA3637-27-12 22:01:0028[facility]annCHEM PANEL 2016-05-17 22:01:008.8[facility]ann[facility] GRFIY7305-78-36 22:01:000.4[facility]annCHE[facility] AUECE0020-19-10 22:01:009.7[facility]annCHEM GCCCI3851-86-91 22:01:0014[facility]annCHE[facility] TKJQP7682-12-84 22:01:0014[facility]annCHEM JJZPN0191-11-36 22:01:007.7[facility]annCHE[facility] DKHMN5505-80-50 22:01:004.4 [facility] IPJLK5548-68-12 22:01:000.8[facility]annCHEM PANEL 2016-05-17 22:01:27471Tpzudrqa HermannCHEM MVPNB4147-61-17 22:01:0015[facility]annCHEM XUBGW4871-69-44 22:01:001.11[facility]annCHEM WELIZ2594-70-82 22:01:96826Yszhbxvy HermannCHEM OUSPN8218-85-55 22:01:003.7[facility]annCHEM UGQSY5076-17-87 22:01:003.3[facility]annCHEM JMBKZ1761-81-36 22:01:47184 [facility]annCHE[facility] XWRJU2995-06-88 22:01:0030[facility]annHEMATOLOGY 2016-05-17 22:01:007.3[facility] KqtpzwaPKFXVCLLIZ0173-05-96 22:01:05596Ujdjfsjy KrpihhiXYJKLRSRAL5955-75-82 22:01:005.30[facility] MfqkitnMXNTXNPTGQ9283-09-23 22:01:0010.5[facility] VfbtqzgOGHOSSBDZQ3158-81-75 22:01:0012.4[facility] KNRRJPHAHI2048-45-93 22:01:0036.8[facility] DwxaepoFBYNNVEYWG1170-85-50 22:01:00 69.4[facility] BnikdmsPCOVLNCWTW7814-73-67 22:01:00 Test Item Value Reference Range Interpretation Comments MCH (test code = MCH) 23.4 pg 27.0-31.0 [facility] AcjnyocPQZQJQDLCM4810-32-45 22:01:0033.7[facility]annHEMATOLOGY 2016-05-17 22:01:0017.1[facility] JdeyvenOYQRLYEQJU7626-68-11 22:01:00 Test Item Value Reference Range Interpretation Comments aPTT (test code = aPTT) 35.4 s 22.9-35.8 [facility] ZaqdhzcOWJFTVUXIU0886-44-88 22:01:00 Test Item Value Reference Range Interpretation Comments PROTIME (test code = PROTIME) 13.1 s 12.0-14.7 [facility] TcqmjuySVFBKBIYQG4433-36-47 22:01:000.97[facility]annHEMATOLOGY 2016-05-17 22:01:001.1[facility] CidabtuJPLFDIBIYA0646-69-74 22:01:006.7[facility] WpkembmRFLRNJCAAQ6744-96-32 22:01:007.2[facility] YtpfsakZOXWMTJBHF1259-12-78 22:01:001.1[facility] TcirpdwVSTWWCSTPW7045-82-72 22:01:002.4[facility] GGIYHPIOCM5074-06-30 22:01:000.7[facility] TkwpnqtIBXUJCRJXG4330-60-20 22:01:000.1 [facility] MpfnrkuXEOYYTABXU7697-05-36 22:01:002+ *ABN*(05/17/16 4:01 PM)[facility] RlqcvvlUSQGNUDIVW4143-33-11 22:01:000.1[facility] GuyksazTUBYTDHEEG1664-32-66 22:01:0022.3[facility] UturcqfYOUWPXWKRV2113-63-84 22:01:0068.8[facility] CARDIAC EEMZVKH4242-23-50 22:01:0074[facility]annCARDIAC JUTNJSN1263-49-37 22:01:000.8[facility]annCARDIAC XMKWQGI5557-77-49 22:01:00<0.02[facility]annCARDIAC GDFUVON6062-74-47 22:01:001.1[facility]annCHEM JAKOU0866-63-68 22:01:0079[facility]annCHEM ZLUOB7469-02-96 22:01:16594Ctwskeyf HermannCHEM KUEAY8910-57-06 22:01:0028[facility]annCHEM DYRDE7149-73-50 22:01:008.8 [facility]annCHEM XLPKG6625-56-09 22:01:000.4[facility]annCHEM PANEL 2016-05-17 22:01:009.7[facility]annCHEM UHWLQ7413-02-11 22:01:0014[facility]annCHEM ALFAJ5659-63-64 22:01:0014[facility]annCHEM OLDZK2190-49-19 22:01:007.7[facility]annCHEM BCBLS2942-96-32 22:01:004.4[facility]annCHEM LMPAZ8301-03-95 22:01:000.8[facility]annCHEM KXSIH0549-50-85 22:01:32364 [facility]annCHEM VYPLT3127-31-12 22:01:0015[facility]annCHEM PANEL 2016-05-17 22:01:001.11[facility] HermannCHEM PFPCI9037-51-61 22:01:88376Rswtvqat HermannCHEM QEXKJ4392-36-63 22:01:003.7[facility] HermannCHEM LFJCD3185-66-54 22:01:003.3[facility]annCHEM ZFOBV1150-68-96 22:01:27445Xosfpmyi HermannCHEM XTQXR3376-27-73 22:01:0030[facility] UavyovoWGXNWBULSA3033-02-16 22:01:007.3 [facility] YlzvnakGXERVQOFJP5693-57-66 22:01:88287Emsfvwgj HermannHEMATOLOGY 2016-05-17 22:01:005.30[facility] NriwbgjPOZBYUPIXD9368-52-54 22:01:0010.5[facility] VdaqevaDQNHQGQQSG4242-08-36 22:01:0012.4[facility] LqtyxmvLMYVWHUCLN2409-61-83 22:01:0036.8[facility] HhltfhjWVGDMHRNTP1761-25-31 22:01:0069.4[facility] DYIAZLRHXM6770-88-08 22:01:00 Test Item Value Reference Range Interpretation Comments MCH (test code = MCH) 23.4 pg 27.0-31.0 [facility] AjyflizDVOJSRINPC7551-70-64 22:01:0033.7[facility]annHEMATOLOGY 2016-05-17 22:01:0017.1[facility] VelernhYICRZLYBHE5625-67-56 22:01:00 Test Item Value Reference Range Interpretation Comments aPTT (test code = aPTT) 35.4 s 22.9-35.8 [facility] RfmzzzgXBNMKGUNHS3642-06-57 22:01:00 Test Item Value Reference Range Interpretation Comments PROTIME (test code = PROTIME) 13.1 s 12.0-14.7 [facility] WgavveuEJUBJAEKRY9263-27-85 22:01:000.97[facility]annHEMATOLOGY 2016-05-17 22:01:001.1[facility] ChggvotHHUEMCEQIW4167-19-08 22:01:006.7[facility] EajxdmqBQOARWLWJP3251-78-76 22:01:007.2[facility] QhbpolrWERIKNCPNY2416-52-05 22:01:001.1[facility] PinwbykMMDZBDKBWQ3932-59-19 22:01:002.4[facility] ODMVTAMKRM4947-64-51 22:01:000.7[facility] TctkurdYTOIGFVWOL6233-10-66 22:01:000.1 [facility] YbufcviRYSGHXFSWV0806-79-61 22:01:002+ *ABN*(05/17/16 4:01 PM)[facility] PssuonsONPWTWMPIH9249-39-35 22:01:000.1[facility] EsbporjODFTGXEJZS3861-04-54 22:01:0022.3[facility] EfiygxmCBFNUCGMND6574-65-49 22:01:0068.8[facility] CARDIAC NFUBDVL8941-32-99 15:25:00<0.02[facility] KrdbdwiNSJMGHPUGM6751-90-90 15:25:00 Test Item Value Reference Range Interpretation Comments aPTT (test code = aPTT) 50.1 s 22.9-35.8 [facility]annCARDIAC ASNJODU7854-14-51 15:25:00<0.02[facility] WPMEZNNMSP1383-57-89 15:25:00 Test Item Value Reference Range Interpretation Comments aPTT (test code = aPTT) 50.1 s 22.9-35.8 [facility] QucuitqSEAOHQYXIKAO8931-90-58 08:42:0010.8[facility] HermannELECTROLYTES 2016-05-06 08:42:0028[facility] CbsghccEQEIPRDDVAFY6009-98-39 08:42:57196Uuoxonly BxhihxxDLBIJLMPXXXS7260-72-18 08:42:008.7[facility] HchjcupOHLXGNGRVNPY9856-23-81 08:42:48128Slmfrqrf UxtofssBAXCSZKYFUSL7068-13-19 08:42:97956Vwqozjvb Freddy OICCVJLDWERZ4731-48-18 08:42:000.86[facility] UzfwsfyXNCFQKOUJUQM0216-16-53 08:42:0018[facility] TgyetzzFPBSYUYARJXJ7204-34-75 08:42:003.8[facility] QGNUNQFDONYR1165-51-47 08:42:63175Zxneqvap HnmzbuzCUTJRMHNGD2532-92-09 08:42:00 2+ *ABN*(05/06/16 2:42 AM)[facility] BuzmycyLKJDCPSJBI1244-57-82 08:42:000.2 [facility] XcyjswgGJTIHJIQFV5883-33-81 08:42:000.8[facility]annHEMATOLOGY 2016-05-06 08:42:007.9[facility] UvcixbeCZCXFFNGHL3258-89-42 08:42:002.5[facility] LvldfszJORJLSWJKA3038-93-73 08:42:006.5[facility] NrrxxvlUNVRYYSJNZ9899-77-69 08:42:000.4[facility] RdqytwrCHUAQZWZXA3721-07-13 08:42:001.7[facility] HAGNRUHOYL8276-20-74 08:42:0024.8[facility] IyuwsmqMRBJKRBCSF1380-80-55 08:42:00 65.2[facility] QadkxdmCXRWUFGWJZ6908-13-04 08:42:005.11[facility]annHEMATOLOGY 2016-05-06 08:42:0036.2[facility] HquirfgHWUJVBYWRK2288-16-56 08:42:0011.8[facility] HctgrgiFZROQVQXJF3622-89-83 08:42:98772Afutbesn LnjgrrkHFCHVGKBCI2089-13-62 08:42:0017.1[facility] EdympwfQFAWMYGCVI5931-88-77 08:42:007.8[facility] WACLOSTTZS4942-89-57 08:42:009.9[facility] StzygrtRGBZTDWKXN7039-30-60 08:42:00 32.5[facility] EpndeotHQWWRPVCAR4801-70-09 08:42:00 Test Item Value Reference Range Interpretation Comments MCH (test code = MCH) 23.0 pg 27.0-31.0 [facility] SnfwiprMKKOFQXAGF2822-50-15 08:42:0070.8[facility] HermannELECTROLYTES 2016-05-06 08:42:0010.8[facility] SzezahyICSLDKNELHDK5649-38-10 08:42:0028[facility] YwpvnjqETUXOCYXYVVB2259-44-09 08:42:16006Zkucdojy NhvhxrkQHTAXPQPJOCY0712-69-43 08:42:008.7[facility] XlwfjpyJADSDIAKIXGJ1801-18-41 08:42:18683Hgsqtqwr [place] BNKWFQBFKBEQ6764-94-34 08:42:82733Undksvni HmubzksFVDSIPVBKPLT7598-13-96 08:42:000.86[facility] EukjjncGLXLZNTMBNMS1710-94-01 08:42:0018[facility] [place] UGEZINHCQYLA9314-14-05 08:42:003.8[facility] YeuwqrlEBZSQZZFSFQN7623-10-39 08:42:03608Cfffmqtk [place]UGABLFFH5393-64-82 08:42:002+ *ABN*(05/06/16 2:42 AM)[facility] RyhndtkWQRBPZGKTD3766-93-79 08:42:000.2[facility] HermannHEMATOLOGY 2016-05-06 08:42:000.8[facility] HdphbtnPTJXPWPPZQ6395-61-77 08:42:007.9[facility] NecbsrhLNHBEXYQLP5018-84-93 08:42:002.5[facility] LoxipklUFVMPOBFJZ5717-48-66 08:42:006.5[facility] TembguoZDSOXOZEGW0864-93-59 08:42:000.4[facility] [place] IKKKDHBUJV4576-64-88 08:42:001.7[facility] BjkgzpfQCQUXHNOWQ5092-83-55 08:42:00 24.8[facility] CuqlsqgADTYOHHLEI4839-68-41 08:42:0065.2[facility] HermannHEMATOLOGY 2016-05-06 08:42:005.11[facility] LqedxvtHBTXCRUYSW7385-76-67 08:42:0036.2[facility] VjkxzlqJASHVOKYPO5938-76-61 08:42:0011.8[facility] UxrjwlbUUQKEWKRVH0145-12-99 08:42:80281Mabrfafn FxxldbjHMZVBXYQLD8776-88-79 08:42:0017.1[facility] BZQJHUFTXM2248-12-28 08:42:007.8[facility] ZljmsyuEPPBCBJEGV3045-80-10 08:42:009.9 [facility] WqlpaquIIENKEGNGB4210-99-20 08:42:0032.5[facility]annHEMATOLOGY 2016-05-06 08:42:00 Test Item Value Reference Range Interpretation Comments MCH (test code = MCH) 23.0 pg 27.0-31.0 [facility] CzdsoyfKZKGRBPYEB1784-55-64 08:42:0070.8[facility]annHEMATOLOGY 2016-05-06 08:20:00 Test Item Value Reference Range Interpretation Comments PROTIME (test code = PROTIME) 13.4 s 12.0-14.7 [facility] EzjbuquSCRVRSHOMW8193-50-82 08:20:001.00[facility] HermannHEMATOLOGY 2016-05-06 08:20:00 Test Item Value Reference Range Interpretation Comments aPTT (test code = aPTT) 49.1 s 22.9-35.8 [facility] OdxwbptKDOFSBEPQL6030-19-15 08:20:00 Test Item Value Reference Range Interpretation Comments PROTIME (test code = PROTIME) 13.4 s 12.0-14.7 [facility] PmkwrekITFYXSJVOS1665-91-83 08:20:001.00[facility]azrial HermannHEMATOLOGY 2016-05-06 08:20:00 Test Item Value Reference Range Interpretation Comments aPTT (test code = aPTT) 49.1 s 22.9-35.8 [facility] AND QCLOJ8838-86-24 04:09:00None Seen (05/05/16 10:09 PM) [facility] ZWTMB4912-07-30 04:09:00Negative (05/05/16 10:09 PM) [facility] OKOPX3974-59-33 04:09:00None Seen (05/05/16 10:09 PM) [facility] TDJLL0249[facility]29 04:09:00None Seen (05/05/16 10:09 PM) [facility] SOEKT4754-87-52 04:09:00Negative (05/05/16 10:09 PM) [facility] EDCDF6130-33-44 04:09:000.2[facility] JVBAC3921-28-04 04:09:00Negative (05/05/16 10:09 PM)[facility] HFJOF5699-50-54 04:09:00Yellow *NA*(05/05/16 10:09 PM)[facility] CXSFB8452-41-92 04:09:00Negative (05/05/16 10:09 PM)[facility] VYBWQ5815-57-90 04:09:00Negative *NA*(05/05/16 10:09 PM)[facility] RYUOY2844-76-42 04:09:00Negative *NA*(05/05/16 10:09 PM)[facility]INE AND IYLOX6242-03-28 04:09:00Negative (05/05/16 10:09 PM)[facility] URINE AND TOQME1192-18-29 04:09:00 Test Item Value Reference Range Interpretation Comments UA pH (test code = UA pH) 6.0 1 5.0-8.0 [facility] WXUFX2556-32-28 04:09:00Clear (05/05/16 10:09 PM) [facility] PRTLB7303-08-36 04:09:00>=1.030 *ABN*(05/05/16 10:09 PM)[facility] VWGUY7007-69-62 04:09:00None Seen (05/05/16 10:09 PM)[facility] IYQHX4681-32-50 04:09:00Negative (05/05/16 10:09 PM)[facility] UZEID4542-89-98 04:09:00None Seen (05/05/16 10:09 PM)[facility] NFNTQ6504-31-90 04:09:00None Seen (05/05/16 10:09 PM)[facility] QLAUW6610-53-54 04:09:00Negative (05/05/16 10:09 PM)[facility] JWXQV8072-77-16 04:09:000.2[facility] AND ANLBZ4183-84-32 04:09:00Negative (05/05/16 10:09 PM)[facility]INE AND MUUSL3296-95-70 04:09:00Yellow *NA*(05/05/16 10:09 PM)[facility] URINE AND OHOYK2608-19-79 04:09:00Negative (05/05/16 10:09 PM)[facility] URINE AND BCJLA5788-26-20 04:09:00Negative *NA*(05/05/16 10:09 PM)[facility] PNAFN8940-00-65 04:09:00Negative *NA*(05/05/16 10:09 PM) [facility] TKYLO6259-41-27 04:09:00Negative (05/05/16 10:09 PM) [facility] DGAWL7478-01-62 04:09:00 Test Item Value Reference Range Interpretation Comments UA pH (test code = UA pH) 6.0 1 5.0-8.0 [facility] TJOHS7843-23-32 04:09:00Clear (05/05/16 10:09 PM) [facility] NDSRV2599-15-27 04:09:00>=1.030 *ABN*(05/05/16 10:09 PM)[facility] - JLHATECI8816-92-76 04:06:00Negative (05/05/16 10:06 PM)[facility] - KPVHCMRI4531-58-46 04:06:00 Negative (05/05/16 10:06 PM)[facility] OlrocqoGIAQWVISJV5143-61-12 03:38:000.1 [facility] PaibojtMBKSUFOWXN2281-10-71 03:38:002+ *ABN*(05/05/16 9:38 PM)[facility] FfyppwbBSLNZPGXIU9564-39-77 03:38:001.4[facility] UwgchrzXKHBDXTQXN6668-57-54 03:38:000.7[facility] ZpzmtfzGKBMINZTNN0850-65-64 03:38:007.1[facility] CPIZLUKTUZ4852-99-53 03:38:0024.8[facility] RnljaybNRXKEKNBBX6126-87-20 03:38:00 7.9[facility] IfxurfoYAUAUITBCQ0663-47-75 03:38:000.9[facility]annHEMATOLOGY 2016-05-06 03:38:000.2[facility] IwjpyerTRCELVISXD1429-36-83 03:38:002.7[facility] FumavflAOCGSQPAKJ0614-31-71 03:38:0065.2[facility] CwoumepLILUCDCHOD4873-83-55 03:38:0069.7[facility] LufzggyJXNOUCEJKV4311-78-94 03:38:00 Test Item Value Reference Range Interpretation Comments MCH (test code = MCH) 23.3 pg 27.0-31.0 [facility] BbbyuzxWYSWODZFIU6535-04-89 03:38:0012.2[facility]annHEMATOLOGY 2016-05-06 03:38:0036.5[facility] WkthjuyZXCPRMSZPD7927-01-14 03:38:0033.4[facility] MdshrabFQFGFOSOYN7619-91-51 03:38:55533Agwjajhi IgzibzlBOWQGGXNIX5123-85-21 03:38:007.2[facility] YkpzujoGMXOHEXVDE4025-03-11 03:38:0017.5[facility] FZEQOBZLDE0537-91-80 03:38:0011.0[facility] NjcbxbyBTEAJWSGYA5617-24-49 03:38:00 5.24[facility] SauxpfsUBJDFJHDWB7867-53-69 03:38:000.1[facility]annHEMATOLOGY 2016-05-06 03:38:002+ *ABN*(05/05/16 9:38 PM)[facility] 2016-05-06 03:38:001.4[facility] NnnspflLIQMUXZPLZ4664-24-68 03:38:000.7[facility] JuvfonbWHLMPCFPMD0520-93-45 03:38:007.1[facility] ZohrvzuENYVHZOVNV2656-05-97 03:38:0024.8[facility] MbycnuiBYORPOZKAA2263-58-60 03:38:007.9[facility] IGCJBWYOIX5196-45-70 03:38:000.9[facility] ZwxjkorHTOGPCRLDP9497-99-88 03:38:000.2 [facility] FqtkdgwZGDEDUADVC3571-96-43 03:38:002.7[facility]annHEMATOLOGY 2016-05-06 03:38:0065.2[facility] KjewylaVDDUYNKYYG0299-58-30 03:38:0069.7[facility] MjfticbQYGRIKGFTL3157-65-35 03:38:00 Test Item Value Reference Range Interpretation Comments MCH (test code = MCH) 23.3 pg 27.0-31.0 [facility] KyoyyzbIGLNTQLLEW3332-39-22 03:38:0012.2[facility]annHEMATOLOGY 2016-05-06 03:38:0036.5[facility] UrdonfeMHBMEVKKHA5899-58-48 03:38:0033.4[facility] SwktwvpKUYJMQBFCK1887-36-15 03:38:19667Tykjiyjj BdhjxjfQPVOVSWYWZ7341-94-38 03:38:007.2[facility] OidqwysAGRMVGSOIE3867-47-54 03:38:0017.5[facility] JZWVIPSUQN0781-69-89 03:38:0011.0[facility] ZnxrzwnSUNWSGGDZO4817-58-76 03:38:00 5.24[facility] QwlaypgBZSWIGRDUG9455-24-54 01:53:001.05[facility]annHEMATOLOGY 2016-05-06 01:53:00 Test Item Value Reference Range Interpretation Comments PROTIME (test code = PROTIME) 13.9 s 12.0-14.7 [facility] OggemhcMJHZQGPWIN2455-22-02 01:53:00 Test Item Value Reference Range Interpretation Comments aPTT (test code = aPTT) 35.3 s 22.9-35.8 [facility] XfdqckjSFQFVIFOXN6814-17-48 01:53:001.05[facility]annHEMATOLOGY 2016-05-06 01:53:00 Test Item Value Reference Range Interpretation Comments PROTIME (test code = PROTIME) 13.9 s 12.0-14.7 [facility] JnjvknsKCWCZFTAGE4313-20-92 01:53:00 Test Item Value Reference Range Interpretation Comments aPTT (test code = aPTT) 35.3 s 22.9-35.8 [facility]CARDIAC WOQOQPR0005-44-91 23:11:001.0[facility]annC[facility]AC WGUQRSX2838-23-48 23:11:000.8[facility]AC FTMGGQQ5690-41-26 23:11:00 80[facility]annCARD[facility]AC JLSQTSI2801-86-88 23:11:00<0.02[facility]annCHEM XRMQN8335-08-85 23:11:38009Sskapvhx HermannCHEM BKRVU0398-85-55 23:11:32855 [facility]annCHE[facility] QLCWO7537-74-65 23:11:0017[facility]annCHEM PANEL 2016-05-05 23:11:001.01[facility]annCHEM OMDQF4805-54-46 23:11:40535Qnswowbs HermannCHEM LJRDJ4084-23-78 23:11:0034[facility]annCHE[facility] FENAW6216-78-71 23:11:003.3[facility]annCHE[facility] LQBSE5407-11-78 23:11:20964Xenllfum HermannCHEM ZQTUV4501-86-16 23:11:0088[facility]annCHE[facility] NDWNA9606-57-85 23:11:000.4 [facility]annCHE[facility] FXHYJ0960-98-72 23:11:008.6[facility]annCHEM PANEL 2016-05-05 23:11:003.7[facility]annCHEM UIHSK8237-86-79 23:11:0028[facility]annCHE[facility] YXLJH3495-86-58 23:11:007.8[facility]annCHE[facility] RWZJW9765-18-57 23:11:0016[facility]annCHE[facility] XJXDG4198-49-99 23:11:009.7[facility]annCHEM PEECR2351-16-17 23:11:0017[facility]annCHEM DFYNN8767-49-36 23:11:004.5 [facility]CHE[facility] JSSBJ3091-80-36 23:11:000.7[facility]annHEMATOLOGY 2016-05-05 23:11:000.8[facility] BhnkuqhRERQQFFKHB3774-21-99 23:11:000.1[facility] KdyoqcpLVBLBZIJWB9737-46-51 23:11:000.1[facility] PdhzwmvOERVLLTWCD3039-81-63 23:11:002+ *ABN*(05/05/16 5:11 PM)[facility] HwegemeWZWFGZDZTF5448-44-14 23:11:00 7.5[facility] HttvaflLRLARZPZFS3075-89-44 23:11:001.1[facility]annHEMATOLOGY 2016-05-05 23:11:000.7[facility] IujbzrbBCGWSGJPHI2295-16-63 23:11:007.5[facility] IqjirwuCZNDUUUWMT0664-39-07 23:11:002.1[facility] PxzbqsrCWWKQPWSHS0173-65-30 23:11:0019.9[facility] ZavaxuiLTLUIWCNOV2913-51-30 23:11:0070.8[facility] VSUHSFSOFV0027-40-08 23:11:69284Mreexrny TfraoqmYFYJMBUKTB8617-39-55 23:11:00 33.6[facility] DflpnbzUFJPZMFUIG5839-10-12 23:11:007.3[facility]annHEMATOLOGY 2016-05-05 23:11:0016.9[facility] YnneckfGAJYNQGTCG0558-19-70 23:11:0069.5[facility] SrglmjvQFWGFCAJUY2977-46-41 23:11:00 Test Item Value Reference Range Interpretation Comments MCH (test code = MCH) 23.4 pg 27.0-31.0 [facility] YhxgytaQKJOLTONJJ5511-22-35 23:11:0037.4[facility]annHEMATOLOGY 2016-05-05 23:11:0012.6[facility] QazvbkrYLPIKNXIZJ3145-82-51 23:11:0010.6[facility] RidbkjjCGNAYBTAUK8558-11-56 23:11:005.39[facility]annCARDIAC ENZYMES 2016-05-05 23:11:001.0[facility]annCARDIAC MTFOQRH7687-31-97 23:11:000.8 [facility] TLFQYHK1308-88-92 23:11:0080[facility]AC ZQBXCMO7984-51-56 23:11:00<0.02[facility]annCHEM IMUED0226-24-55 23:11:00 133[facility]annCHEM KYBRF8665-97-91 23:11:53911Njgikhsx HermannCHEM PANEL 2016-05-05 23:11:0017[facility]annCHEM UYCXP9131-51-58 23:11:001.01[facility]annCHEM ZAXHO2068-31-08 23:11:22644Ykwicual HermannCHEM MIMVV9148-24-65 23:11:0034[facility]annCHEM ZHHUR8827-75-08 23:11:003.3[facility]annCHEM ARUTW0082-09-89 23:11:34506Jzlyloiy HermannCHEM DVIKM1584-71-27 23:11:0088 [facility]CHE[facility] EQJUO1786-31-27 23:11:000.4[facility]annCHEM PANEL 2016-05-05 23:11:008.6[facility]annCHEM HSHCB6076-47-98 23:11:003.7[facility]annCHEM UZFCY6777-16-49 23:11:0028[facility]annCHEM JJNGR3560-99-16 23:11:007.8[facility]annCHEM VYUOY6491-97-57 23:11:0016[facility]annCHEM HHLEA1635-84-39 23:11:009.7[facility]annCHEM XHTIZ3509-45-20 23:11:0017 [facility]annCHE[facility] YGJGC4007-68-87 23:11:004.5[facility]annCHEM PANEL 2016-05-05 23:11:000.7[facility] LshcybaNOMNGRPOWI3567-09-46 23:11:000.8[facility] NykpystYEFCKHXQDT6776-17-46 23:11:000.1[facility] YkvvhbhPLZGXEOFMM3102-94-20 23:11:000.1[facility] SgunjihSDMKDLAOSK9942-20-06 23:11:002+ *ABN*(05/05/16 5:11 PM)[facility] JrwnusmPCEVLEFRPP8046-90-93 23:11:007.5[facility]annHEMATOLOGY 2016-05-05 23:11:001.1[facility] SfgqnuxITLOQPZHVS8495-90-82 23:11:000.7[facility] GsvzmfaSGMCWXMGZU7295-43-75 23:11:007.5[facility] IpbdrlpVTXYWAOEQV2755-09-23 23:11:002.1[facility] ZwelzbnDZZZDPBAIP9998-70-19 23:11:0019.9[facility] BRFEIGFHZY1390-85-59 23:11:0070.8[facility] XzdlycoLLXQLWZFYZ9620-40-60 23:11:00 306[facility] ZbxgwpvYKTIPBPWXE1975-67-61 23:11:0033.6[facility]annHEMATOLOGY 2016-05-05 23:11:007.3[facility] HrdlewaTSMXYFFURN4364-09-47 23:11:0016.9[facility] YmnpmetOWXEPCILAI7948-33-08 23:11:0069.5[facility] VxekgonGCLNKGNWRW3441-24-65 23:11:00 Test Item Value Reference Range Interpretation Comments MCH (test code = MCH) 23.4 pg 27.0-31.0 [facility] RowplqiHTCODIIEZD9138-91-26 23:11:0037.4[facility]annHEMATOLOGY 2016-05-05 23:11:0012.6[facility] HsbcirjJSOTLYZDQN4969-62-85 23:11:0010.6[facility] MtxqtcoBSNNIFKHJY6965-42-71 23:11:005.39[facility]annCHEM GNQZS5521-06-94 23:17:004.2[facility]annCHEM WXMEL7151-14-99 23:17:0019[facility]annCHEM CAHMZ6013-50-53 23:17:009.9[facility]annCHEM LWWCK2586-55-97 23:17:000.8 [facility]annCHE[facility] GXSYN2365-17-68 23:17:82903Pavesfod HermannCHEM PANEL 2016-04-25 23:17:72294Wlftsmwx HermannCHEM GNWNF0698-90-02 23:17:003.4[facility]annCHEM ZCWMM5576-18-51 23:17:0030[facility]annCHEM RXMQY6685-73-85 23:17:007.6[facility]annCHEM AVKGI3220-80-98 23:17:000.3[facility]annCHEM LRVFS3920-45-16 23:17:0014[facility]annCHEM QYPRQ4030-15-10 23:17:0026 [facility]annCHE[facility] GOIWK0504-64-10 23:17:008.7[facility]annCHEM PANEL 2016-04-25 23:17:10415Zkqsvfao HermannCHEM CBRZY5333-63-98 23:17:003.9[facility]annCHEM XMHNO4237-09-38 23:17:04251Aocqddrj HermannCHEM IWMMY0375-46-81 23:17:87736Uiwwrapg HermannCHEM HRPQV1353-35-09 23:17:000.91[facility]annCHEM MLPJI4667-60-55 23:17:0017[facility] OfvtehsOAGADRTIRA9772-27-73 23:17:005.40 [facility] UgemssmSTBXBTZFBY0684-67-48 23:17:0010.3[facility]annHEMATOLOGY 2016-04-25 23:17:0012.9[facility] FeybfjsTYBGYNMNAO7319-61-17 23:17:007.2[facility] SnimdvgHGZLPKPKKH4717-23-85 23:17:0016.8[facility] VbuuzdzFLXFJLPPES4693-58-18 23:17:76371Rpemesns QgfqgogSDQHQWVEVP8597-66-68 23:17:00 Test Item Value Reference Range Interpretation Comments MCH (test code = MCH) 23.8 pg 27.0-31.0 [facility] ZzzpuvaEZRXIPMCRV9898-05-78 23:17:0034.0[facility]annHEMATOLOGY 2016-04-25 23:17:0037.9[facility] MhvydgeBWYBBTNXII6104-20-32 23:17:0070.1[facility] IjewofsYQYSUMAQFX1220-04-85 23:17:002.3[facility] MqbpfzpTZUPEJGDFS9739-47-22 23:17:000.1[facility] TfqixcmLYJVXXEQLM1434-18-70 23:17:000.6[facility] LRWERXRFHB4359-16-16 23:17:000.1[facility] SdmkmwfDJCOYLJFAP6721-87-49 23:17:002+ *ABN*(04/25/16 6:17 PM)[facility] ErveyxlZWOTIHCQWW6238-71-49 23:17:0069.2[facility] LnjnlrqZMCTLVXUSL9241-97-06 23:17:007.1[facility] BnpomntSHUNUJXSZE7790-54-68 23:17:006.1[facility] EjgogilAHOZTMWNHE0897-80-14 23:17:001.1[facility] GYLJHVIQZR7114-61-68 23:17:001.1[facility] YkxjppdZCVLRUDATS9261-50-13 23:17:00 22.5[facility] PLCGC0608-09-32 23:17:00Negative (04/25/16 6:17 PM) [facility] CJTAN6619-90-09 23:17:00 Test Item Value Reference Range Interpretation Comments UA pH (test code = UA pH) 6.0 1 5.0-8.0 [facility] ZANPR8851-38-58 23:17:00Negative (04/25/16 6:17 PM) [facility] LHSAP1119-41-32 23:17:00Negative *NA*(04/25/16 6:17 PM) [facility] YURTO0950-54-74 23:17:00Negative *NA*(04/25/16 6:17 PM) [facility] IVDAI7640-36-48 23:17:00Negative (04/25/16 6:17 PM) [facility] JUXTO2369-80-98 23:17:000.2[facility] VGNYE6889-20-83 23:17:00Negative (04/25/16 6:17 PM)[facility] XAMMC0521-59-26 23:17:00Yellow *NA*(04/25/16 6:17 PM)[facility] DENDM8736-36-44 23:17:00Clear (04/25/16 6:17 PM)[facility] STOOL 2016-04-25 23:17:00 Test Item Value Reference Range Interpretation Comments UA Spec Grav (test code = UA Spec 1.020 1 Grav) [facility]annCHEM LERTF5132-86-08 23:17:004.2[facility]annCHEM PANEL 2016-04-25 23:17:0019[facility]annCHEM QWCUU0952-12-72 23:17:009.9[facility]annCHEM LZOTN6604-06-14 23:17:000.8[facility]annCHEM JDPJH6180-76-73 23:17:97994Oycgcyrt HermannCHEM LVXXV4054-63-08 23:17:54774Gyzsydiy HermannCHEM FWQVM0161-09-61 23:17:003.4[facility]annCHEM EDVGR9764-31-53 23:17:0030 [facility]annCHE[facility] RNSLK8333-15-88 23:17:007.6[facility]annCHEM PANEL 2016-04-25 23:17:000.3[facility]annCHEM PUYJT9497-87-43 23:17:0014[facility]annCHEM BIIGP4017-84-51 23:17:0026[facility]annCHEM SVSVK3125-40-97 23:17:008.7[facility]annCHEM GDKSR9335-24-34 23:17:09308Vbmsurwk HermannCHEM QUGIP6272-71-27 23:17:003.9[facility]annCHEM MHPFV6874-37-86 23:17:22923 [facility]annCHE[facility] VCTYA1816-86-33 23:17:43065Rukaqhqp HermannCHEM PANEL 2016-04-25 23:17:000.91[facility]annCHEM UMOOT3318-58-81 23:17:0017[facility] HezixgeEWFUMHOVNG1676-66-10 23:17:005.40[facility] WvwcharXBXNOLQOMK7517-53-74 23:17:0010.3[facility] ShbwdosEBHPSFIWXE8518-85-58 23:17:0012.9[facility] BFBBWWZXTF5667-61-11 23:17:007.2[facility] AlxmmsuJHAOXSXKOB3398-21-52 23:17:00 16.8[facility] MjyxwvdPWTUAQLOPK9861-20-86 23:17:31126Wikvftia HermannHEMATOLOGY 2016-04-25 23:17:00 Test Item Value Reference Range Interpretation Comments MCH (test code = MCH) 23.8 pg 27.0-31.0 [facility] OdghvccOAJSBWIFBM8504-97-79 23:17:0034.0[facility]annHEMATOLOGY 2016-04-25 23:17:0037.9[facility] UthxgnbJPZUYTRMUP4665-37-17 23:17:0070.1[facility] UjpgsfpUSKCIOVAHI0375-06-18 23:17:002.3[facility] CjttebwUDOYDFJBML5688-02-60 23:17:000.1[facility] SltkgmeOKXFCPZAOE4842-88-33 23:17:000.6[facility] WWZLXBPXMX7903-02-65 23:17:000.1[facility] MyktmnjCIISDHVYJT6544-03-28 23:17:002+ *ABN*(04/25/16 6:17 PM)[facility] HuavmckENZPIJJVHB5931-72-92 23:17:0069.2[facility] DektlmeXUKHFBAYOG3444-34-05 23:17:007.1[facility] JhlkpkxMLYYXSRBZA9549-90-84 23:17:006.1[facility] KxokwyvKQAFHFWGLO6650-91-88 23:17:001.1[facility] KSXCYFGBMJ0852-56-23 23:17:001.1[facility] DkixkcqYJJARPUYSA1280-40-39 23:17:00 22.5[facility] KZBWS5388-96-14 23:17:00Negative (04/25/16 6:17 PM) [facility] SBCDX4011-93-47 23:17:00 Test Item Value Reference Range Interpretation Comments UA pH (test code = UA pH) 6.0 1 5.0-8.0 [facility] FXHXL3109-01-12 23:17:00Negative (04/25/16 6:17 PM) [facility] NZHVM4530-16-34 23:17:00Negative *NA*(04/25/16 6:17 PM) [facility] CVWIS9183-82-17 23:17:00Negative *NA*(04/25/16 6:17 PM) [facility] KVYDY3773-29-59 23:17:00Negative (04/25/16 6:17 PM) [facility] QLNEL7761-42-49 23:17:000.2[facility] AND XJWLD0218-17-88 23:17:00Negative (04/25/16 6:17 PM)[facility] CQNGG1584-54-98 23:17:00Yellow *NA*(04/25/16 6:17 PM)[facility] LKQDM9033-54-58 23:17:00Clear (04/25/16 6:17 PM)[facility] STOOL 2016-04-25 23:17:00 Test Item Value Reference Range Interpretation Comments UA Spec Grav (test code = UA Spec 1.020 1 Grav) [facility]annCARDIAC IVXIVRL6314-46-88 13:55:00<0.02[facility] CARDIAC SOWQDEU1919-35-64 13:55:000.8[facility]annCARDIAC NPGTLRJ8291-16-19 13:55:0060[facility]annCARDIAC SHFYPVJ8936-17-34 13:55:001.3[facility] CARDIAC DUVYQHH5665-12-31 13:55:00<0.02[facility]annCARDIAC ENZYMES 2016-03-05 13:55:000.8[facility]annCARDIAC ABCFECV0934-04-28 13:55:0060 [facility]annC[facility]AC RMOKDEG5454-49-23 13:55:001.3[facility]annCARDIAC QBTWHND7399-14-23 12:30:00<0.02[facility]annCARDIAC AJPJBOK0654-19-00 12:30:0066[facility]annCARDIAC MIOTYAO2852-88-82 12:30:000.6[facility] CARDIAC OYQFWUH7640-89-73 12:30:000.9[facility] HermannCHEM JOCOK7545-36-00 12:30:35797Mnrizlhm HermannCHEM AALEO0945-88-07 12:30:0012.0[facility] HermannCHEM MUIVZ2938-49-49 12:30:004.4[facility] HermannCHEM RSVVD7249-15-08 12:30:0014 [facility]annCHEM UZBDB8251-75-46 12:30:000.8[facility]annCHEM PANEL 2016-03-05 12:30:008.8[facility] HermannCHEM ALTJP1092-54-80 12:30:000.6[facility] HermannCHEM HUTEO5524-73-17 12:30:007.8[facility]annCHEM MYPXJ9331-26-45 12:30:0016[facility]annCHEM GKUIV3946-58-15 12:30:05732Pcrhmcmn HermannCHEM RFJWK4240-64-61 12:30:0097[facility]annCHEM GIPEV1275-01-79 12:30:000.88 [facility]annCHEM ICHDE2343-30-82 12:30:0012[facility]annCHEM PANEL 2016-03-05 12:30:49871Jfxryscu HermannCHEM WGOVO0917-73-46 12:30:0032[facility]annCHEM SCQFV8929-46-56 12:30:003.4[facility]annCHEM EFIHW1826-92-63 12:30:004.0[facility]annCHEM NWCAN6719-11-89 12:30:38862Ukrxeokj HermannCHEM BWBKH6526-91-77 12:30:0025[facility] HapdxutXHUCKBIWHK7358-13-27 12:30:37952 [facility] VecpsneVKGJKMNJBJ3787-86-55 12:30:007.4[facility] HermannHEMATOLOGY 2016-03-05 12:30:0010.0[facility] SxzuaigVYPLFHWVFR7883-63-86 12:30:0016.6[facility] OhjgjglHEPBEIRBPF0971-83-88 12:30:00 Test Item Value Reference Range Interpretation Comments MCH (test code = MCH) 24.1 pg 27.0-31.0 [facility] WsrjcvhRBSGBNJLLG7529-66-27 12:30:0033.4[facility] HermannHEMATOLOGY 2016-03-05 12:30:0072.2[facility] PvjvlcyUGPYGNJQNR1866-66-23 12:30:0038.1[facility] SogeodlCRXVBGUMKW3279-69-40 12:30:005.28[facility] KygygooETSPJLYRLP5355-32-67 12:30:0012.7[facility] MtopzgxOAFBZLRXNA0073-55-98 12:30:001+ *ABN*(03/05/16 7:30 AM)[facility] UfkanaiXGOWZITIOK3915-25-72 12:30:000.1[facility] HermannHEMATOLOGY 2016-03-05 12:30:000.7[facility] RhxxpgdPPKGOGZYOU5631-43-38 12:30:000.1[facility] ZzkpjcuACRRXFNSVO5111-48-85 12:30:007.5[facility] QwbyszvBFNIQXLLAZ4605-64-85 12:30:001.6[facility] SqaeuykARNMTJXDLF2597-67-78 12:30:001.2[facility] YBQGNDKBZC7775-70-80 12:30:000.6[facility] XcrvdwkLQQZSLGHSE6341-27-24 12:30:00 75.1[facility] DeabdljBYHNYETMPW5241-05-88 12:30:007.4[facility]annHEMATOLOGY 2016-03-05 12:30:0015.7[facility] HermannCARDIAC ZELGEHO6861-90-65 12:30:00 <0.02[facility] HermannCARDIAC BMODVZP6615-83-03 12:30:0066[facility] CARDIAC SSRARBF0679-59-71 12:30:000.6[facility] HermannCARDIAC UITHBUN8757-87-76 12:30:000.9[facility] HermannCHEM QNAGS1286-64-88 12:30:75779Mvwkmufe HermannCHEM FNMTM6545-45-09 12:30:0012.0[facility]annCHEM OLTBB3515-14-30 12:30:004.4 [facility]annCHEM NZMGB8319-39-73 12:30:0014[facility]annCHEM PANEL 2016-03-05 12:30:000.8[facility]annCHEM CISYR2857-59-00 12:30:008.8[facility]annCHEM KYVPB6747-14-68 12:30:000.6[facility]annCHEM IQTRN0439-71-37 12:30:007.8[facility]annCHEM VVSLI1950-40-69 12:30:0016[facility]annCHEM JOYIA2794-27-01 12:30:93164Wefcapmw HermannCHEM ZYKOT0017-03-45 12:30:0097 [facility]annCHEM LLDCY2678-95-81 12:30:000.88[facility]annCHEM PANEL 2016-03-05 12:30:0012[facility]annCHEM CYPNS9841-29-42 12:30:05526Smizblek HermannCHEM VTHVF4996-41-95 12:30:0032[facility]annCHEM AHBWM5447-36-60 12:30:003.4[facility]annCHEM ZXZGH4630-28-84 12:30:004.0[facility]annCHEM XUVCI7284-59-30 12:30:00527Uqxfuhtg HermannCHEM FGYHX8937-22-78 12:30:0025 [facility] LtykqqjJWXGPZBVSV3399-80-64 12:30:05848Dcwasgkc HermannHEMATOLOGY 2016-03-05 12:30:007.4[facility] CdmvovwMZTCIVMOKX9594-59-76 12:30:0010.0[facility] VclsyyjNMFCUSTLSF0987-65-54 12:30:0016.6[facility] ImxgcelSPVMUNDRFR4447-88-01 12:30:00 Test Item Value Reference Range Interpretation Comments MCH (test code = MCH) 24.1 pg 27.0-31.0 [facility] ZbthfybQSCYDWRGVJ6722-72-31 12:30:0033.4[facility] HermannHEMATOLOGY 2016-03-05 12:30:0072.2[facility] OzdgtcpGTGWGBKXGT0468-74-08 12:30:0038.1[facility] EwqbzmuBWHCSKVMWR5787-94-72 12:30:005.28[facility] DsfsqcdDFUGYLJTOU2644-90-57 12:30:0012.7[facility] HngjpvhDYSSHRZZYE6033-42-43 12:30:001+ *ABN*(03/05/16 7:30 AM)[facility] BharmjpIVWFXMRMUT2981-89-75 12:30:000.1[facility] HermannHEMATOLOGY 2016-03-05 12:30:000.7[facility] NqzvxwoNXLYALLELB5496-58-53 12:30:000.1[facility] PkwytzrGJWLYYORVD9269-07-66 12:30:007.5[facility] IfbjcwtIYIQDTDSVI9467-61-07 12:30:001.6[facility] JusqdabHSZFJPZJTT6744-32-99 12:30:001.2[facility] FQPJYHWXDC4143-93-53 12:30:000.6[facility] SizeripHXPBJUPOBU2641-80-37 12:30:00 75.1[facility] KevpgdcNNOTVOWSAQ0775-86-01 12:30:007.4[facility] HermannHEMATOLOGY 2016-03-05 12:30:0015.7[facility]annURINE AND YQZOO0041-22-05 13:22:00None Seen (03/02/16 8:22 AM)[facility] CHVHT5132-51-51 13:22:00None Seen (03/02/16 8:22 AM)[facility] ISCYF2546-75-04 13:22:00 Test Item Value Reference Range Interpretation Comments UA pH (test code = UA pH) 6.0 1 5.0-8.0 [facility] XBOJP8252-38-76 13:22:00Negative *NA*(03/02/16 8:22 AM) [facility] PHHLL5694-94-64 13:22:00Yellow *NA*(03/02/16 8:22 AM) [facility] KUMUG1348-94-75 13:22:00Clear (03/02/16 8:22 AM) [facility] ANSAP8353-79-97 13:22:00 Test Item Value Reference Range Interpretation Comments UA Spec Grav (test code = UA Spec 1.015 1 Grav) [facility] NUHPD2854-93-16 13:22:00Negative (03/02/16 8:22 AM) [facility] VZCON4567-93-95 13:22:000.2[facility] OUYVI1855-72-37 13:22:00Negative (03/02/16 8:22 AM)[facility] ZHDMT1724-17-70 13:22:00Negative (03/02/16 8:22 AM)[facility] WLLJK0127-26-50 13:22:00None Seen (03/02/16 8:22 AM)[facility] AJDUD8190-73-55 13:22:00None Seen (03/02/16 8:22 AM)[facility] XRKVF3121-18-03 13:22:00 Test Item Value Reference Range Interpretation Comments UA pH (test code = UA pH) 6.0 1 5.0-8.0 [facility] HVJLS6776-68-12 13:22:00Negative *NA*(03/02/16 8:22 AM) [facility] RJBEL2969-29-10 13:22:00Yellow *NA*(03/02/16 8:22 AM) [facility] YOUXG4642-61-74 13:22:00Clear (03/02/16 8:22 AM) [facility] NBBLD7966-87-84 13:22:00 Test Item Value Reference Range Interpretation Comments UA Spec Grav (test code = UA Spec 1.015 1 Grav) [facility] BCUAL4794-05-73 13:22:00Negative (03/02/16 8:22 AM) [facility] DMJCL3183-11-50 13:22:000.2[facility] WDYWS2622-01-47 13:22:00Negative (03/02/16 8:22 AM)[facility] NDRBG7988-67-78 13:22:00Negative (03/02/16 8:22 AM)[facility]annCHEM PANEL 2016-03-02 10:41:000.7[facility] HermannCHEM KHNEF2058-27-87 10:41:004.6[facility] HermannCHEM HSPNX9845-99-79 10:41:0016[facility]annCHEM FDCJR7953-05-08 10:41:0010.4[facility]annCHEM XFZVZ8849-53-80 10:41:008.0[facility]annCHEM XZKWR0482-44-03 10:41:000.3[facility]annCHEM WZESZ2041-88-27 10:41:008.7 [facility]annCHE[facility] RJAAO1551-63-60 10:41:0026[facility]annCHEM PANEL 2016-03-02 10:41:57264Lupuynds HermannCHEM ULAXF9319-62-10 10:41:48514Gaaxmvbk HermannCHEM ZEEAQ5121-34-40 10:41:004.4[facility]annCHEM KQKVG6088-74-41 10:41:0083[facility]annCHEM TSZXN9713-34-87 10:41:0013[facility]annCHEM ZITNA2214-19-32 10:41:001.07[facility]annCHEM IBZUQ7296-12-38 10:41:0017 [facility]annCHEM MFTCL6970-45-72 10:41:86403Cppgvbnr HermannCHEM PANEL 2016-03-02 10:41:09533Fuunfuxn HermannCHEM FCJYV8754-30-51 10:41:003.4[facility]annCHEM ZWHZI2073-70-77 10:41:0033[facility]annCHEM FNEDC3890-52-45 10:41:97898Ghnugmlh DpsiwmgHCRMTQUSAP7251-76-23 10:41:000.1[facility] Rfeddy FPQUSJLQON8502-00-19 10:41:001+ *ABN*(03/02/16 5:41 AM)[facility] [facility]annHEMATOLOGY 2016-03-02 10:41:006.7[facility] HnfwwyyEXMOBZBEIT1869-88-49 10:41:0021.9[facility] TrgurumDDNHIACUZC4911-42-52 10:41:001.5[facility] QykovavSRYHISKFCW9420-94-50 10:41:0069.1[facility] MrtvuboLQUGCXKJFD5685-53-52 10:41:000.8[facility] OZTDAZADMD3362-52-87 10:41:002.6[facility] UjqkydfFHCCMKPUZN8718-61-92 10:41:000.2 [facility] WpxdwwbEINFQCPKXQ1589-26-17 10:41:008.1[facility] HermannHEMATOLOGY 2016-03-02 10:41:000.8[facility] TdyfylfQIFXZWTDHQ2053-34-57 10:41:0011.8[facility] DswfsvcLECTICNGIC0178-71-33 10:41:0037.4[facility] MxlqiaeTOZBCWMVVQ3415-94-63 10:41:005.18[facility] OzrfzgxMPUGMDRJCC7027-37-39 10:41:0012.5[facility] YZKAMPNGDL5931-46-64 10:41:00 Test Item Value Reference Range Interpretation Comments MCH (test code = MCH) 24.1 pg 27.0-31.0 [facility] ClbrzpbUAFJIGAVPJ7923-49-86 10:41:0016.7[facility] HermannHEMATOLOGY 2016-03-02 10:41:0033.4[facility] CzbuyvzPGUGEOXYYW2914-26-85 10:41:0072.1[facility] AegrxliIJQMIBMXMR6589-57-69 10:41:007.7[facility] UijerivHDYERBGSRH3013-06-40 10:41:83826Gedjjndz HermannCHEM DYQHJ5228-77-22 10:41:000.7[facility] HermannCHEM YONMB8622-78-65 10:41:004.6[facility] HermannCHEM TLGLS0151-00-55 10:41:0016 [facility]annCHEM MUEFR5565-27-75 10:41:0010.4[facility] HermannCHEM PANEL 2016-03-02 10:41:008.0[facility] HermannCHEM CCALX5030-71-20 10:41:000.3[facility] HermannCHEM ITQFP6873-06-65 10:41:008.7[facility] HermannCHEM CMUMV3736-06-31 10:41:0026[facility]annCHEM UPGGD1160-04-45 10:41:07792Hzjpiceg HermannCHEM PMLXO0581-58-92 10:41:93449Tpbkbwwk HermannCHEM JFILF7739-38-92 10:41:004.4 [facility]annCHEM EWXOY5111-32-54 10:41:0083[facility] HermannCHEM PANEL 2016-03-02 10:41:0013[facility] HermannCHEM OVAWX9780-80-29 10:41:001.07[facility] HermannCHEM GRXJY5359-39-42 10:41:0017[facility] HermannCHEM VADOI8354-02-50 10:41:68121Fnljxnsn HermannCHEM KFBUT2254-33-50 10:41:03418Xgzchled HermannCHEM QFNOJ6805-97-76 10:41:003.4[facility] HermannCHEM FFIHU2967-17-22 10:41:0033 [facility]annCHEM OMATH6921-73-74 10:41:86437Vvlcvlrw HermannHEMATOLOGY 2016-03-02 10:41:000.1[facility] OitaninUGAVCHXPXJ1968-29-87 10:41:001+ *ABN*(03/02/16 5:41 AM)[facility] JborfvzRFIJBYVFGY2272-29-95 10:41:006.7[facility] TohsefuIUBVRNTPSX3226-25-89 10:41:0021.9[facility] SbjxiiqSBGUTCODEF4433-13-36 10:41:001.5[facility] QjqessxVQJAIUOHTA9354-04-09 10:41:0069.1[facility] OOAVDQYTEB9313-47-28 10:41:000.8[facility] WtfxqstAYHZDPDBRE4014-05-33 10:41:002.6 [facility] CynluluYQDXTLNUVL6764-16-19 10:41:000.2[facility] HermannHEMATOLOGY 2016-03-02 10:41:008.1[facility] LwmispmSTIARTEAFE3703-49-97 10:41:000.8[facility] TfgtbpaNMLSQZENAM5358-89-19 10:41:0011.8[facility] OerpbuoGBZFBSFNYV7944-11-76 10:41:0037.4[facility] EzewtwaYPIMWNHAVW9973-44-01 10:41:005.18[facility] TAOULCMUCU5903-33-05 10:41:0012.5[facility] CdauoixLMXYBLMWOR3318-86-85 10:41:00 Test Item Value Reference Range Interpretation Comments MCH (test code = MCH) 24.1 pg 27.0-31.0 [facility] TqkgozxBGGGPWFFCI9909-79-36 10:41:0016.7[facility] HermannHEMATOLOGY 2016-03-02 10:41:0033.4[facility] WfqgmcrQKSQWZHORW0250-62-65 10:41:0072.1[facility] FstpufkCVLALJXOTK9733-62-09 10:41:007.7[facility] OxsfpxgPMOCPYGHDL2960-47-02 10:41:58803Wxhdetie QiodzorCCVDKKAWBGJE1159-60-59 14:27:004.4[facility] WKSKZXVBBOUT7461-43-16 14:27:61977Fvswpnlm NlnaktuUFDDSQCQUUPA8550-15-78 14:27:03785Mqyyeobf YaobuyxLTSUVDZIZUHH3125-21-31 14:27:70679Wphkckid Freddy AGXIVQKGBNBL0789-70-12 14:27:000.88[facility] JcretcgUJYQVBWXGTBY8109-46-44 14:27:0010[facility] ZbndjzxVCPYCYTCUHBD8142-94-31 14:27:24311Dmwsnjik [facility] DFPHENGHSHKZ7850-94-63 14:27:008.8[facility] PkyejvnMZPHDXGWOYZU2880-59-32 14:27:0024[facility] BznwzpiSBWBHMPUZGAO9659-01-29 14:27:0012.4[facility] TDXXXYBVNY6828-48-59 14:27:0016.3[facility] RgkwdwsYVLZXEGUBS0455-11-98 14:27:00 273[facility] NriavlkFVHZFCVILN1784-86-58 14:27:007.5[facility] HermannHEMATOLOGY 2016-02-19 14:27:0012.8[facility] HwyalqiNXSSWCJKCK0089-27-02 14:27:005.31[facility] SztatvqQUZIEOYGDP3554-76-12 14:27:0011.1[facility] NvlqoozCWTBSQUWHJ8054-56-04 14:27:0072.6[facility] PzwmlqvQLBROQMUVQ3011-17-97 14:27:0038.6[facility] ZKJVYESGCJ8601-01-04 14:27:00 Test Item Value Reference Range Interpretation Comments MCH (test code = MCH) 24.1 pg 27.0-31.0 [facility] SjhdspuPGJYZAEYUV7406-33-58 14:27:0033.1[facility] HermannELECTROLYTES 2016-02-19 14:27:004.4[facility] ReglbehDBXZXZZFJOGM2259-64-04 14:27:49179Bmidkyne EhqcvwtWWOBQXADBAOH0259-83-09 14:27:76048Ebxiwnqt AnebdruSQSDJHJIAKIU5429-23-20 14:27:15058Ycovwgge ZeucrzeSZRIUCIYFDID8913-59-11 14:27:000.88[facility] NJASXRCXZCAL1164-45-14 14:27:0010[facility] UizeyeaFYJXBPOQWIOV9555-15-04 14:27:00 103[facility] HapgfycCDIZRFGMQBGP8531-85-79 14:27:008.8[facility] GHEVEXNRFWNN1924-81-12 14:27:0024[facility] BplfhxbEIHFKTGGUFYQ4538-60-49 14:27:00 12.4[facility] TwrtlzeYDCUEGKUDE7038-05-91 14:27:0016.3[facility] HermannHEMATOLOGY 2016-02-19 14:27:18563Rcaydhcz QxghdesEJXJNXZWEM9267-95-09 14:27:007.5[facility] QbxehpzQCHBVTWJQK1136-84-74 14:27:0012.8[facility] ReaxeguCJBBOMHGJU6078-55-73 14:27:005.31[facility] ZdmebmuGGIQGNEJUM0800-37-92 14:27:0011.1[facility] OXWJSHQZPV1070-27-11 14:27:0072.6[facility] DqsqlgzXCEFYLTILD1783-83-58 14:27:00 38.6[facility] StqacpeXYTGFDJVFX5062-85-39 14:27:00 Test Item Value Reference Range Interpretation Comments MCH (test code = MCH) 24.1 pg 27.0-31.0 [facility] VwssqsxDCBEIFMOUK9711-50-96 14:27:0033.1[facility] HermannCARDIAC ENZYMES 2016-02-18 10:20:45<0.02[facility] KmyklxbVDBVUWNMYJ9823-07-09 10:20:457.9 [facility] UydjptvRTEZOIEDDD7914-84-77 10:20:4520.8[facility] HermannHEMATOLOGY 2016-02-18 10:20:4569.1[facility] ZopijsuWHWMVQABCW0113-67-15 10:20:452.2[facility] ArloxdvFCVZDKYIZL6610-26-37 10:20:450.8[facility] IrrtryuXKGENOADEC5304-40-52 10:20:451.6[facility] QywuexxGUCRTQIOET8467-68-68 10:20:457.5[facility] FKHKKUOCLA6617-51-37 10:20:450.6[facility] TmycyqlNDXDKTDYQH2686-17-97 10:20:451+ *ABN*(02/18/16 5:20 AM)[facility] QbnewzzCEXDZORPWA6373-75-37 10:20:450.1[facility] BqsqcfdPWALRWNCJK4381-66-57 10:20:450.2[facility] DennbveVHPXBXVXRK4502-79-89 10:20:454.91[facility] EbrourpHURXNRXRKM6908-22-00 10:20:4510.8[facility] AODMTOOZHW4612-22-88 10:20:45 Test Item Value Reference Range Interpretation Comments MCH (test code = MCH) 24.1 pg 27.0-31.0 [facility] JqsdvulDWUUJCXVEN3869-75-45 10:20:4573.1[facility] HermannHEMATOLOGY 2016-02-18 10:20:4535.9[facility] PmhtlqhKAPNIZLEIP7479-36-48 10:20:4511.8[facility] GtiywyjSQIRUZXHIO0707-68-81 10:20:457.4[facility] MftkvzdBXFINHRICR2731-68-21 10:20:4516.3[facility] EyxkgctRPBDRMLTPG9267-17-89 10:20:4533.0[facility] RXFXQHZJIL8261-62-44 10:20:31178Gmwkzsyf HermannCARDIAC VVSTFLE0136-83-41 10:20:45<0.02[facility] OygtsmzQXXZCQBKKU1722-11-34 10:20:457.9[facility] LJLFGVQDCQ0211-39-65 10:20:4520.8[facility] DhavodzKRXVKQYDRK2557-22-50 10:20:45 69.1[facility] AxdiqfxXKCJFKZJZS2211-71-43 10:20:452.2[facility] HermannHEMATOLOGY 2016-02-18 10:20:450.8[facility] ZotpkpgHQIOAYALAT5103-67-53 10:20:451.6[facility] YucvdghBSGKNFICTS1640-41-96 10:20:457.5[facility] UxvnwywRFAGDVCHWZ0345-44-08 10:20:450.6[facility] ZcnxuduBGVBLTFKCG9999-64-83 10:20:451+ *ABN*(02/18/16 5:20 AM)[facility] AqggistYRIBAXJSMW4453-25-61 10:20:450.1[facility] HermannHEMATOLOGY 2016-02-18 10:20:450.2[facility] BgeugvbTMOSFTGCXS1725-23-66 10:20:454.91[facility] KhpdsvcPKKRINWTMK3667-75-25 10:20:4510.8[facility] IbcqsocADXKAYKHFN3830-45-47 10:20:45 Test Item Value Reference Range Interpretation Comments MCH (test code = MCH) 24.1 pg 27.0-31.0 [facility] DffmadmOOJOTHCKVH1937-14-63 10:20:4573.1[facility] HermannHEMATOLOGY 2016-02-18 10:20:4535.9[facility] ZlrkvenJHWGNHJBWL3507-16-21 10:20:4511.8[facility] QifftdePAYLFRTBJO5082-03-50 10:20:457.4[facility] VtazqwrSXKACLCNNM4232-36-23 10:20:4516.3[facility] LyndgtkUEPZCIVGWK4321-08-28 10:20:4533.0[facility] DLXPJFYFCJ0280-92-81 10:20:00569Puctjkbo HermannCARDIAC UJEFKGX6930-08-11 21:41:44<0.02[facility] HermannCHEM MXBZI8778-69-91 21:41:44<0.05[facility] HermannCARDIAC ZSOMEJH1100-56-24 21:41:44<0.02[facility] HermannCHEM PANEL 2016-02-17 21:41:44<0.05[facility] HermannCARDIAC OYRDEVZ1932-36-49 15:34:00 <0.02[facility] HermannCARDIAC TGTTPGT7884-24-25 15:34:00<0.02[facility]annURINE AND LABUB3877-46-27 11:27:00None Seen (02/17/16 6:27 AM)[facility] HHQIC3623-72-70 11:27:00None Seen (02/17/16 6:27 AM)[facility] KNIUI7041-02-82 11:27:00Negative (02/17/16 6:27 AM)[facility] CCQCM2924-35-19 11:27:000.2[facility] AND STOOL 2016-02-17 11:27:00Negative (02/17/16 6:27 AM)[facility] AND STOOL 2016-02-17 11:27:00 Test Item Value Reference Range Interpretation Comments UA Spec Grav (test code = UA Spec 1.025 1 Grav) [facility] OKCCS3558-51-76 11:27:00Clear (02/17/16 6:27 AM) [facility] QQWGE8525-91-36 11:27:00Yellow *NA*(02/17/16 6:27 AM) [facility] SOXDF0952-73-23 11:27:00Negative *NA*(02/17/16 6:27 AM) [facility] ELPZE2851-71-22 11:27:00Negative (02/17/16 6:27 AM) [facility] YEUCH2463-38-39 11:27:00 Test Item Value Reference Range Interpretation Comments UA pH (test code = UA pH) 6.0 1 5.0-8.0 [facility] ZLWBP4917-88-04 11:27:00None Seen (02/17/16 6:27 AM) [facility] IGJEX7845-81-64 11:27:00None Seen (02/17/16 6:27 AM) [facility] BNQZW2505-70-46 11:27:00Negative (02/17/16 6:27 AM) [facility] IAZAY9828-48-31 11:27:000.2[facility] JGREZ3446-34-04 11:27:00Negative (02/17/16 6:27 AM)[facility] IGZYG2603-70-28 11:27:00 Test Item Value Reference Range Interpretation Comments UA Spec Grav (test code = UA Spec 1.025 1 Grav) [facility] YIFTB4335-78-90 11:27:00Clear (02/17/16 6:27 AM) [facility] NUMHX1441-09-27 11:27:00Yellow *NA*(02/17/16 6:27 AM) [facility] XGYSZ0704-92-99 11:27:00Negative *NA*(02/17/16 6:27 AM) [facility] GEECI6802-09-58 11:27:00Negative (02/17/16 6:27 AM) [facility] PZNRU8574-43-53 11:27:00 Test Item Value Reference Range Interpretation Comments UA pH (test code = UA pH) 6.0 1 5.0-8.0 [facility]annCARDIAC KRDLWHF2632-39-27 10:50:001.6[facility] HermannCARDIAC ABLTXNG6056-20-37 10:50:000.9[facility] HermannCARDIAC INILOKS7698-04-94 10:50:00 58[facility] HermannCHEM FMYPH2447-34-43 10:50:0093[facility] HermannCHEM PANEL 2016-02-17 10:50:0033[facility] HermannCHEM RBJTD0538-03-60 10:50:0023[facility]annCHEM VYKVO9566-75-22 10:50:008.8[facility] HermannCHEM PPRTF1858-88-77 10:50:004.0[facility] HermannCHEM OUUJF6589-08-08 10:50:27662Hqidebdk HermannCHEM PPYAT0262-97-90 10:50:000.97[facility] HermannCHEM VINLM4065-35-27 10:50:95630 [facility]annCHEM WPOBF4301-20-41 10:50:0011[facility]annCHEM PANEL 2016-02-17 10:50:003.4[facility] HermannCHEM FZAHT1672-81-29 10:50:73962Easmckog HermannCHEM GGNGN9669-40-83 10:50:000.5[facility] HermannCHEM FLJND6361-06-69 10:50:78552Mqxuaryc HermannCHEM CXTJS5958-66-07 10:50:0015.0[facility] HermannCHEM UIDQQ3477-94-75 10:50:0011[facility] HermannCHEM OFSMF3634-78-55 10:50:008.0 [facility]annCHEM AKZLN2495-50-31 10:50:0016[facility] HermannCHEM PANEL 2016-02-17 10:50:004.6[facility] HermannCHEM PLCCT5443-52-52 10:50:000.7[facility] GccvqtaUTSOOXREJV3479-19-31 10:50:001+ *ABN*(02/17/16 5:50 AM)[facility] RTMYACBVJP2722-40-56 10:50:000.1[facility] JeqbggrRTTMOUTFUG4961-76-36 10:50:000.5 [facility] HvaohdvWQPACMXKPD4580-47-98 10:50:002.4[facility] HermannHEMATOLOGY 2016-02-17 10:50:000.8[facility] ModmlrmFMZTGAIUFC0003-63-54 10:50:000.1[facility] AkxhnmpAKPIKBXDZN3415-30-79 10:50:008.7[facility] LmkysjeVCTTNDCOFK0460-03-82 10:50:001.2[facility] ShxxoedUKBUQWONIT9387-49-23 10:50:0072.1[facility] GLMGGDTSJS5635-57-78 10:50:0019.8[facility] KyqgpthBEWCUAJKLS4898-18-01 10:50:00 6.4[facility] GaieydjGRUKTXQAFE0585-61-45 10:50:60492Lyorrlug HermannHEMATOLOGY 2016-02-17 10:50:00 Test Item Value Reference Range Interpretation Comments MCH (test code = MCH) 24.1 pg 27.0-31.0 [facility] YhbjswtRPQHAKMFEZ5268-69-88 10:50:0033.3[facility] HermannHEMATOLOGY 2016-02-17 10:50:007.6[facility] KieyfhyBYLRUVBKNU3942-05-09 10:50:0016.3[facility] HbqljuqKUMFLPAPET4546-50-13 10:50:0013.1[facility] DtjxgjhWXJHRSBCJC5986-92-74 10:50:0039.5[facility] PauivpoAUFMGRIFCT5321-37-63 10:50:0012.0[facility] DFOOZRMYAB0702-33-67 10:50:005.45[facility] TldcszhEUHRJHCUIX2618-33-13 10:50:00 72.6[facility] HermannCARDIAC DOOQXAI3582-79-31 10:50:001.6[facility] HermannCARDIAC RSNNGEI0950-51-69 10:50:000.9[facility] HermannCARDIAC BVJCFKH6891-22-35 10:50:00 58[facility] HermannCHEM NYRIC5468-11-29 10:50:0093[facility] HermannCHEM PANEL 2016-02-17 10:50:0033[facility] HermannCHEM EOLAE3474-56-87 10:50:0023[facility] HermannCHEM GCSGN0058-34-74 10:50:008.8[facility] HermannCHEM HEGDX0712-83-38 10:50:004.0[facility] HermannCHEM LCVID0372-41-35 10:50:22138Gcdctzuo HermannCHEM XIWWF5019-19-57 10:50:000.97[facility] HermannCHEM VFRUK8182-14-12 10:50:70327 [facility]annCHEM GHXZO0450-86-38 10:50:0011[facility] HermannCHEM PANEL 2016-02-17 10:50:003.4[facility] HermannCHEM LROCV0657-33-22 10:50:23478Bpftgqxc HermannCHEM NEWIO0288-53-67 10:50:000.5[facility] HermannCHEM KDYMF2253-54-92 10:50:43391Yxsrkxzi HermannCHEM NKQYV1301-13-88 10:50:0015.0[facility] HermannCHEM CMDHU1315-90-75 10:50:0011[facility] HermannCHEM KOLXP5830-08-75 10:50:008.0 [facility]annCHEM LKTKO0004-76-66 10:50:0016[facility] HermannCHEM PANEL 2016-02-17 10:50:004.6[facility] HermannCHEM ALZWO6888-53-93 10:50:000.7[facility] YrpaqbaWRMJKUOHDB4705-06-48 10:50:001+ *ABN*(02/17/16 5:50 AM)[facility] IRPSXBSHOV0648-06-53 10:50:000.1[facility] EjkrtmvKVPWBMAAXS2481-85-34 10:50:000.5 [facility] RkmlswfDCYMAQDWME6725-95-03 10:50:002.4[facility] HermannHEMATOLOGY 2016-02-17 10:50:000.8[facility] HlznpqaNDSSSEIVGF3370-89-59 10:50:000.1[facility] AfoerbfJPYNCMFQOJ0775-53-81 10:50:008.7[facility] QsdqkvdAQJIKAJAGH4679-34-80 10:50:001.2[facility] FpkvqtnESHJJQKODF3084-62-66 10:50:0072.1[facility] MDYBMETFVE1003-95-99 10:50:0019.8[facility] YlytgqnBYFJYIVVMP4698-77-94 10:50:00 6.4[facility] XsxjhcoBJKDWVWXYJ1842-86-45 10:50:78974Wwpjzwle HermannHEMATOLOGY 2016-02-17 10:50:00 Test Item Value Reference Range Interpretation Comments MCH (test code = MCH) 24.1 pg 27.0-31.0 [facility] ZzgzpfmOXXJXFADIL7104-38-36 10:50:0033.3[facility] HermannHEMATOLOGY 2016-02-17 10:50:007.6[facility] MdwfhqsSTDRFVWXNR6429-69-11 10:50:0016.3[facility] PyrkidnPRQPYJAVDU6873-03-17 10:50:0013.1[facility] KqpjdqcCCKWOJRSBH7818-60-58 10:50:0039.5[facility] XyopuihQINWIPYDKM6008-74-75 10:50:0012.0[facility] DNOQCYZMHC7199-96-15 10:50:005.45[facility] OkmqakjVVPTLPLZTU5455-70-32 10:50:00 72.6[facility]
--- NOTE | 2020-09-28 13:46 | ER ---
Nurse's Notes [facility] Name: Marquis Nelson Age: 50 yrs Sex: Male : 1970 Arrival Date: 09/28/2020 Time: 12:21 Bed Waiting Private MD: Diagnosis: Assessment: 09/28 13:00 Reassessment: pt not in lobby. iw ED Course: 12:21 Patient arrived in ED. as Administered Medications: No medications were administered Outcome: 13:45 Patient left the ED. iw Signatures: Haley Darby Irene, RN RN iw
== END 2020-09-28 13:45 | disposition left against medical advice (07) ==
LOC: ER 12:15
DX: Z02.9 Encounter for administrative examinations, unspecified (principal)

== ENCOUNTER 2020-12-24 09:26 | Observation (INO) | payer OTHER ==
[2020-12-24 10:07] LABS: Absolute Lymphocytes (CBC) 1.6 K/uL (0.7-4.9); Basophils % 0.5 % (0-1.3); Hematocrit 36.9 % (39.6-49.0); Lymphocytes % 16.8 % (15.3-44.8); MPV 7.4 fL (7.6-11.3); RBC Red Blood Cell Count 5.22 M/uL (4.33-5.43)
--- OUTSIDE RECORDS SUMMARY | 2020-12-24 10:14 | XMS REPORT | Continuity of Care Document ---
:1970 Author Organization [facility] t Address [address] [place] [place] [id number] Care Team Providers Name Role Phone Lupe PHILLIP, A Primary Care Physician Lupe PHILLIP, A Attending Clinician Pob, Lab Main Attending Clinician Unavailable Aye PHILLIP Attending Clinician Doctor Unassigned, Name Attending Clinician Unavailable Jed PHILLIP, Namita Attending Clinician Rocco PHILLIP Attending Clinician Bibiana PHILLIP Attending Clinician Robert PHILLIP Attending Clinician Alvin MORFIN, L Attending Clinician Unavailable Candelario PHILLIP Attending Clinician Laisha PHILLIP Attending Clinician Esme Harrington Attending Clinician Draw, Lab Attending Clinician Unavailable Denzel ELYDaniel Attending Clinician 2, Lab Attending Clinician Unavailable Juan MORFIN, A Attending Clinician Unavailable Nava PHILLIP Attending Clinician Nelia Nieto Attending Clinician Lala HERNANDEZ, S Attending Clinician Tonny PHILLIP, N Attending Clinician 1, Lab Attending Clinician Unavailable Nancie Zuleta Attending Clinician Mayo Dupont Attending Clinician Papa Lopez Attending Clinician Melodie Platt Attending Clinician Raulito Partida Attending Clinician Esau Roberts Attending Clinician Mayo Dupont Admitting Clinician Esau Roberts Admitting Clinician Payers Payer Name Policy Policy Number Effective Expiration Source Type Date Date [facility] [id number] 2017 Un iversity of [employer] 00:00:00 [facility] [id number], [place] [address]ORR Advance Directives Directive Decision Effective Termination Comments Source Date Date Healthcare Agents on N/A [facility] ersity FileNameRelationshipHealthcare of [place] Agent Medical RelationshipCommunicationSelect Specialty Hospital - [facility]kees[facility] Lilibeth ThomaseSpouseHealth Care [phone] (Mobile) [email or web address] SolizSiblingFirst Alternate Health Care [phone] (Mobile) Problems Condition Condition Condition Status Onset Resolution Last Treating Co mments Source Name Details Category Date Date Treatment Clinician Date History of History of Disease Active U nivers pulmonary pulmonary 4-09 ity of embolism embolism 00:00: [place] 00 [facility] Branch Antiphosph Antiphosph Disease Active 2020- U nivers olipid olipid 2-08 ity of syndrome syndrome 00:00: [place] 00 Medical Branch SOB SOB Disease Active 2019 Univers (shortness (shortness 2-13 it y of of breath) [place] breath) [place] Pacemaker Pacemaker Disease Active 2018-06 Uni vers 1-11 ity of 00:00: [place] 00 Medical Branch Bradycardi Bradycardi Disease Active 2019- U nivers a a 4-16 ity of 00:00: [place] [facility] Congestive Congestive Disease Active 2019- U nivers heart heart 3-11 ity of failure failure 00:00: [place] 00 Medical [facility] Volume Volume Disease Active 2019- Univers overload overload 3-11 ity of 00:00: [place] [facility] Anticoagul Anticoagul Disease Active 2019- U nivers ation ation 3-04 ity of management management [place] encounter encounter 00 Medi marium [Z51.81, [Z51.81, Branch Z79.01] Z79.01] Other Other Disease Active 2019- Univers pulmonary pulmonary 2-16 ity of embolism embolism 00:00: [place] without without 00 Medical acute cor acute cor Bran ch pulmonale, pulmonale, unspecifie unspecifie d d chronicity chronicity Status Status Disease Active Univers post post 8-15 ity of placement placement 00:00[place] of of 00 Medical implantabl implantabl Br anch e loop e loop recorder recorder Tachycardi Tachycardi Disease Active U nivers a a 7-17 ity of 00:00: [place] [facility] Angina at Angina at Disease Active 2018 Uni vers rest rest 7-12 ity of 00:00: [place] 00 Medical Branch Pulmonary Pulmonary Disease Active 2018 Uni vers emboli emboli 5-14 ity of 00:00: [place] 00 Medical Branch Electrolyt Electrolyt Disease Active U nivers e e 1-25 ity of abnormalit abnormalit 00:00: [place] 00 Medical [place] Chronic Chronic Disease Active 2016-06 Univers diastolic diastolic 1-03 ity of congestive congestive 00:00[place] heart heart 00 Medical failure failure Branch Other iron Other iron Disease Active 2016-06 Overview : Univers deficiency deficiency 0-10 Added it y of anemia anemia 00:00: automatic [place] 00 ally from Medical request Branch for surgery [id number] Syncope Syncope Disease Active 2016-06 Univers 0-10 ity of 00:00: [place] 00 Medical Branch Chest Chest Disease Active Univers pain, rule pain, rule 8-24 it y of out acute out acute 00:[place] myocardial myocardial 00 Me dical infarction infarction Br anch Hypokalemi Hypokalemi Disease Active U nivers a a 5-01 ity of 00:00: [place] 00 Medical Branch (HFpEF) (HFpEF) Disease Active Univers heart heart 4-09 ity of failure failure 00:00: [place] with with 00 Medical preserved preserved Bran ch ejection ejection fraction fraction Anxiety Anxiety Disease Active Univers 3-29 ity of 00:00: [place] 00 Medical Branch Acute on Acute on Disease Active Unive rs chronic chronic 3-28 ity of diastolic diastolic 00:00[place] congestive congestive 00 Me dical heart heart Branch failure failure SCHILLING SCHILLING Disease Active Univers (dyspnea (dyspnea 3-27 ity of on on 00:00: [place] exertion) exertion) 00 [facility] Branch Precordial Precordial Disease Active U nivers pain pain 3-27 ity of 00:00: [place] 00 Medical Branch GREGORIO GREGORIO Disease Active Univers (obstructi (obstructi 3-27 it y of ve sleep ve sleep 00:00: [place] apnea) apnea) 00 Medical Branch Dyspnea Dyspnea Disease Active Univers 3-27 ity of 00:00: [place] 00 Medical Branch Fatigue Fatigue Disease Active Univers 3-04 ity of 00:00: [place] 00 Medical Branch Atypical Atypical Disease Active Unive rs chest pain chest pain 3-03 it y of 00:00: [place] 00 Medical Branch Nephrolith Nephrolith Disease Active U nivers iasis iasis 1-28 ity of 00:00: [place] 00 Medical Branch Dizziness Dizziness Disease Active Uni vers 1-04 ity of 00:00: [place] 00 Medical Branch Chest pain Chest pain Disease Active 2015-06 U nivers 2-21 ity of 00:00: [place] 00 Medical Branch 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 2-21 ity of disease disease 00:00: [place] involving involving 00 Medi marium [place] Branch coronary coronary artery of artery of [place] heart heart without without angina angina pectoris pectoris [place] Disease Active 2015-06 Univers (myocardia (myocardia 2- it y of l l 00:00: [place] infarction infarction 00 Me dical ) ) Branch 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 2- ity of mellitus mellitus 00:00: [place] without without 00 Medical complicati complicati Br anch on on Essential Essential Disease Active 2015-06 Uni vers hypertensi hypertensi 2- it y of on on 00:00: [place] 00 Medical Branch CHEST PAIN Diagnosis Active 2015-062016-10-01 Memoria - 15:12:00 l CHEST 00:00: [place] PAIN 00 [facility] CHE[facility] Diagnosis Active 2015-062016-10-01 Memoria PAIN - 15:12:00 l ACS, 00:00: [place] CHEST PAIN 00 Active 05/05/2016 [facility] [place] KIDNEY Diagnosis Active 2015-062016-10-01 Mem oria STONES 1-03 15:13:00 l KIDNEY 00:00: [place] STONES 00 Active 04/25/2016 [facility] Freddy KIDNEY Diagnosis Active 2016-03-02 Mem oria STONE - 07:18:00 l KIDNEY 00:00: [place] STONE 00 Active 03/02/2016 [facility] [place] PYELONEPHR Diagnosis Active 2016-02-17 Memoria ITIS 02-16 08:00:00 l 00:00: [place] PYELONEPHR 00 ITIS Active 02/17/2016 [facility] Abdominal Problem Resolve 2016-05-20 M emoria aortic d 02:45:43 l aneurysm Freddy (disorder) Abdominal aortic aneurysm (disorder) Resolved Problem 05/20/2016 [facility] Diabetes Problem Resolve 2016-05-20 Me moria mellitus d 02:45:43 l (disorder) Diabetes He rmann mellitus (disorder) Resolved Problem 05/20/2016 [facility] Hyperchole Problem Resolve 2016-05-20 Memoria sterolemia d 02:45:43 l (disorder) Fly n Hyperchole sterolemia (disorder) Resolved Problem 05/20/2016 [facility] Hypertensi Problem Resolve 2016-05-20 Memoria ve d 02:45:43 l disorder, [place] systemic Hypertensi arterial ve (disorder) disorder, systemic arterial (disorder) Resolved Problem 05/20/2016 [facility] Right Problem Resolve 2016-05-20 Bc jae bundle d 02:45:43 l branch Right [place]dy block bundle (disorder) branch block (disorder) Resolved Problem 05/20/2016 [facility] Sleep Problem Resolve 2016-05-20 Bc jae apnea d 02:45:43 l (finding) Sleep Fly n apnea (finding) Resolved Problem 05/20/2016 [facility] TUBULO-INT Diagnosis Active 2016-02-17 Memoria ERSTITIAL 08:00:00 l NEPHRITIS, Fly n NOT SPCF TUBULO-INT ERSTITIAL NEPHRITIS, NOT SPCF Active [facility] CHEST Diagnosis Active 2016-10-01 Mem oria PAIN, 15:12:00 l UNSPECIFIE CHEST Ashley nn D PAIN, UNSPECIFIE D Active [facility] History of History of Disease Active Overview : Univers alcohol alcohol Sober for ity o f abuse abuse 16 years [facility] Branch Acute Acute Disease Resolve 2020-10-05 2020-10-06 Univers hypokalemi hypokalemi d 2-25 00:00:00 00:46:02 ity of a a 00:00: [place] 00 Medical Branch Chest pain Chest pain Disease Resolve 2016-08-19 2016-08-20 Univers radiating radiating d 2-16 00:00:00 02:56:30 ity of to arm to arm 00:00: [place] 00 Medical Branch Abdominal Abdominal Disease Resolve 2016-08-19 2016-08-20 Univers pain pain d - 00:00:00 02:56:47 ity of 00:00: [place] 00 Medical Branch History of History of Disease Resolve 2016-08-19 2016-08-20 Univers epidural epidural d - 00:00:00 02:56:36 it y of anesthesia anesthesia [place]:00: [place] Morbid Morbid Disease Active 2016-08-19 2016-08-20 U carmeners obesity obesity - 00:00:00 02:56:42 ity of with body with body 00:00[place] mass index mass index 00 Me dical of of Branch 40.0-49.9 40.0-49.9 Obesity Obesity Disease Resolve 2015-062016-08-19 2016-08-20 Univers (BMI (BMI d -21 00:00:00 02:56:20 ity of 30-39.9) 30-39.9) 00:00: [place] 00 Medical Branch History of Past Illness Condition Condition Condition Status Onset Resolution Last Treating Co mments Source Name Details Category Date Date Treatment Clinician Date Discharge Problem 2015-062016-05-20 2016-05-20 Memoria Diagnosis: 07-17 02:45:43 02:45:43 l Chest pain 06:00: [place] Discharge 00 Diagnosis: Chest pain 05/17/2016 05/20/2016 [facility] Discharge Problem 2015-062016-04-28 2016-04-28 Memoria Diagnosis: 06-25 04:09:27 04:09:27 l Flank pain 05:00: [place] Discharge 00 Diagnosis: Flank pain 04/25/2016 04/28/2016 [facility] Discharge Problem 2016-03-08 2016-03-08 Memoria Diagnosis: 03-05 05:16:49 05:16:49 l Acute 05:00: [place] chest pain Discharge 00 Diagnosis: Acute chest pain 03/05/2016 03/08/2016 [facility] Discharge Problem 2016-03-05 2016-03-05 Memoria Diagnosis: 03-02 01:19:04 01:19:04 l Renal 05:00: [place] calculus Discharge 00 Diagnosis: Renal calculus 6 03/05/2016 [facility] Allergies, Adverse Reactions, Alerts Allergy Allergy Status Severity Reaction(s) Onset Inactive Treating Comm ents Source Name Type Date Date Clinician Ruth Mcdonald Active Other - See 2018-06 Involunt a Univers ne ty to comments 0-21 ry ity of Fumarate adverse 00:00: jerking [place] reaction 00 Medical s Branch Mirtazap Propensi Active Other - See Urinary Univers ine ty to comments 3-08 issues, ity of adverse 00:00: gaining [place] reaction 00 weightOth Medic al s er Branch reaction( s): Other (see comments) Urinary issues, gaining weight gabapent DA Active [facility] in 07-03 Clear 00:[facility] [facility] T[facility] Sewelli Active Other - See Patient Univers ne ty to comments, 2-04 unsure ity of adverse Unknown - 00:00: why [place] reaction See comments 00 documente Medical s d in Branch mrPatient unsure why documente d in mr Ines Kellyensi Active Other - See Flushed Univers ne ty to comments, 2-04 and over ity o f adverse Unknown - 00:00: sedationF [place] reaction See comments 00 lushed Me dical s and over Branch sedation Quetiapi Propensi Active Other - See akathisi a Univers ne ty to comments 2- akathisia ity o f adverse 00:00: [place] reaction 00 Medical s Branch Adhesive Propensi Active Other - See 2016-06 Paper U nivers Tape-Edith ty to comments 1 tape only ity of icones adverse 00:00: !! Tears [place] reaction 00 skin.Othe Medic al s r Branch reaction( s): Other (see comments) Paper tape only !! Tears skin. Spironol Propensi Active Other - See Breast U nivers actone ty to comments 03-18 tendernes ity o f adverse 00:00: sOther [place] reaction 00 reaction( Medic al s s): Other Branch (see comments) Breast tendernes s Trazodon Propensi Active Other - See Hot U nivers e ty to comments 5- flashesOt ity o f adverse 00:00: her [place] reaction 00 reaction( Medic al s s): Other Branch (see comments) sweatings weatingHo t flashes Gabapent Propensi Active Other - See diaphore t Univers in ty to comments 1-13 icOther ity of adverse 00:00: reaction( [place] reaction 00 s): Other Medic al s (see Branch comments) Flushed and over sedationF lushed and over sedationd iaphoreti c Tamsulos Propensi Active Other - See 2015-06 U nivers in Hcl ty to comments 2- ity of adverse 00:00: [place] reaction 00 Medical s Branch Butorpha Propensi Active Other - See 2015-06 tachycar d Univers nol ty to comments 2-21 ia ity of Tartrate adverse 00:00: [place] reaction 00 Medical s to Branch drug Beta-Blo Propensi Active Other - See Per U nivers ckers ty to comments 6-14 patient ity of (Beta-Ad adverse 00:00: "heart [place] renergic reaction 00 rate Medica l Blocking s to drop, Branch Agts) drug lethargic , weak"Othe r reaction( s): Other (see comments) , Other (see comments) , Other (see comments) , Other (see comments) , Other (see comments) Per patient "heart rate drop, lethargic , weak"But does take PRN for afib ???All beta blockers cause bradycard iaBut does take PRN for afib ??? Alfuzosi Propensi Active Unknown - 2014-06 Uni vers n ty to See comments 1-12 ity of adverse 00:00: [place] reaction 00 Medical s Branch Tamsulos Propensi Active Other - See Dilation Univers in ty to comments 3-10 of eyes ity of adverse 00:00: and [place] reaction 00 couldn't Medica l s see"too Branch over power"Dil ation of eyes and couldn't see"too over power" Tramadol Propensi Active Unknown - Tachycard Univers ty to See 3-10 iaOther ity of adverse comments, 00:00: reaction( [place] as reaction Palpitations 00 s): Other Medical s to (see Branch drug comments) Tachycard iaTachyca rdiaTachy cardia tramadol DA Active [facility] 3-10 Clear 00:00: [place] 00 [facility] butorpha DA Active [facility] nol 3-10 Clear 00:00: [place] 00 [facility] tamsulos DA Active [facility] in 3-10 Clear 00:00: [place] 00 [facility] Stadol Stadol Active Memoria l Freddy traMADol traMADol Active Memori a l [place] beta beta Active Memoria blockers blockers l [place] Flomax Flomax Active Memoria l Freddy Family History Family Member Diagnosis Comments Start Date Stop Date Source Father Asthma [facility] Father CHF (congestive Universit y of heart failure) [facility] Father COPD (chronic University obstructive [place] Medical pulmonary disease) Branch Father High cholesterol [facility] Father Hypertension [facility] Father Leukemia [facility] Maternal Uncle Leukemia [facility] Mother High cholesterol Universi ty of [facility] Mother Hypertension University [facility] Paternal Cancer University of Grandmother [facility] Social History Social Habit Start Date Stop Date Quantity Comments Source Exposure to Not sure University of SARS-CoV-2 (event) [facility] Cigarettes smoked 2020-10-24 2020-10-24 Univers ity of current (pack per 00:00:00 00:00:00 ) - Reported Branch Cigarette 2020-10-24 2020-10-24 University of pack-years 00:00:00 00:00:00 [facility] Tobacco use and 2020-10-24 2020-10-24 Never used Universit y of exposure 00:00:00 00:00:00 [facility] Alcohol intake 2020-10-24 2020-10-24 Current University of 00:00:00 00:00:00 non-drinker of [facility] alcohol [place] (finding) History SDOH 2020-09-28 2020-09-28 21 University o f Education 00:00:00 00:00:00 [facility] Tobacco Comment 2020-09-28 2020-09-28 quit in 2009 Univers ity of 00:00:00 00:00:00 [facility] History of tobacco 2014-06-26 Cigarette Smoker University of use 00:00:00 [facility] Sex [birth year] At [birth year] Universit y of 00:00:00 00:00:00 [facility] Smoking Status Start Date Stop Date Source Social History 2016-05-17 22:34:21 2016-05-17 22:34:21 [facility] Medications Ordered Filled Start Stop Current Ordering Indication Dosage Frequency Signature Comments Components Source Medication Medication Date Date Medication? Clinician (SIG) Name Name KCL Yes Chronic 100meq Take 75 mL Univers mEq/15 mL 5-04 heart by mouth 2 ity of solution 00:00: failure (two) [place] 00 with times Medical preserved daily. Branch ejection fraction KCL 20 Yes Chronic 100meq Take 75 mL Univers mEq/15 mL 5-04 heart by mouth 2 ity of solution 00:00: failure (two) 00 with times Medical preserved daily. Branch ejection fraction KCL 20 Yes Chronic 100meq Take 75 mL Univers mEq/15 mL 5-04 heart by mouth 2 ity of solution 00:00: failure (two) [place] 00 with times Medical preserved daily. Branch ejection fraction atorvastati Yes 40mg Take 1 Univ ers n (LIPITOR) 4-30 tablet by ity of 40 mg 00:00: mouth at [place] tablet 00 bedtime. Medical Branch diltiazem Yes Atypical 120mg Take 1 U nivers XR 120 mg 4-30 chest pain capsule by ity of 24 hr 00:00: mouth [place] capsule 00 daily. Medical Branch atorvastati 0 Yes 40mg Take 1 Univ ers n (LIPITOR) 4-30 tablet by ity of 40 mg 00:00: mouth at [place] tablet 00 bedtime. Medical Branch diltiazem Yes Atypical 120mg Take 1 U nivers XR 120 mg 4-30 chest pain capsule by ity of 24 hr 00:00: mouth [place] capsule 00 daily. Medical Branch atorvastati Yes 40mg Take 1 Univ ers n (LIPITOR) 4-30 tablet by ity of 40 mg 00:00: mouth at [place] tablet 00 bedtime. Medical Branch diltiazem Yes Atypical 120mg Take 1 U nivers XR 120 mg 4-30 chest pain capsule by ity of 24 hr 00:00: mouth [place] capsule 00 daily. Medical Branch clonazePAM Yes Panic Take 1 Univ ers 1 mg tablet 4-22 disorder pill PO in ity of 00:00: without the AM, 1 agoraphobia PO in the Med ica afternoon, Branch 1 pill PO in the evening. May take additional 1/2 pill as needed for acute anxiety. clonazePAM Yes Panic Take 1 Univ ers 1 mg tablet 4-22 disorder pill PO in ity of 00:00: without the AM, 1 agoraphobia PO in the Med ica afternoon, Branch 1 pill PO in the evening. May take additional 1/2 pill as needed for acute anxiety. clonazePAM Yes Panic Take 1 Univ ers 1 mg tablet 4-22 disorder pill PO in ity of 00:00: without the AM, 1 agoraphobia PO in the Med ica afternoon, Branch 1 pill PO in the evening. May take additional 1/2 pill as needed for acute anxiety. pantoprazol 0 Yes Hiatal 1 tablet Univers e 40 mg EC 4-21 hernia every AM. it y of tablet 00:00: 1 tablet 00 as needed Medical in PM Branch pantoprazol Yes Hiatal 1 tablet Univers e 40 mg EC 4-21 hernia every AM. it y of tablet 00:00: 1 tablet 00 as needed Medical in PM Branch pantoprazol Yes Hiatal 1 tablet Univers e 40 mg EC 4-21 hernia every AM. it y of tablet 00:00: 1 tablet 00 as needed Medical in PM Branch metformin 0 Yes Type 2 500mg Take 1 Uni vers ER 500 mg 4-20 diabetes tablet by i ty of 24 hr 00:00: mellitus mouth [place] tablet 00 with daily with Medical cardiac breakfast. Branch complicatio n metformin Yes Type 2 500mg Take 1 Uni vers ER 500 mg 4-20 diabetes tablet by i ty of 24 hr 00:00: mellitus mouth [place] tablet 00 with daily with Medical cardiac breakfast. Branch complicatio n metformin Yes Type 2 500mg Take 1 Uni vers ER 500 mg 4-20 diabetes tablet by i ty of 24 hr 00:00: mellitus mouth [place] tablet 00 with daily with Medical cardiac breakfast. Branch complicatio n pyridoxine Yes Take by Uni vers HCl, 4-12 mouth. ity of vitamin B6, 22:08: [place] (VITAMIN 12 Medical B-6 ORAL) Branch methocarbam Yes 750mg Take 750 U nivers ol 750 mg 4-12 mg by ity of tablet 22:08: mouth 2 [place] 12 (two) Medical times Branch daily. buprenorphi Yes 8mg Place 8 mg Univers ne-naloxone 4-12 under the ity of (SUBOXONE) 22:08: tongue [place] 8-2 mg 12 every 12 Medical sublingual (twelve) Branc h film hours as needed for Pain (scale 7-10). Cholecalcif Yes Take by Un [place], 4-12 mouth. ity of Vitamin D3, 22:08: [place] (VITAMIN 12 Medical D3) 2,000 Branch unit tablet ZINC ORAL Yes Take by Univ ers 4-12 mouth ity of 22:08: every [place] 12 other day. Medical Branch pyridoxine 2021-0 Yes Take by Uni vers HCl, 4-12 mouth. ity of vitamin B6, 22:08: [place] (VITAMIN 12 Medical B-6 ORAL) Branch methocarbam 0 Yes 750mg Take 750 U nivers ol 750 mg 4-12 mg by ity of tablet 22:08: mouth 2 [place] 12 (two) Medical times Branch daily. buprenorphi 2020-[address] 8 mg Univers ne-naloxone 4-12 under the ity of (SUBOXONE) 22:08: tongue [place] 8-2 mg 12 every 12 Medical sublingual (twelve) Branc h film hours as needed for Pain (scale 7-10). Cholecalcif 2020-0 Yes Take by Un [place], 4-12 mouth. ity of Vitamin D3, 22:08: [place] (VITAMIN 12 Medical D3) 2,000 Branch unit tablet ZINC ORAL 2020-[address] [facility] ers 4-12 mouth ity of 22:08: every [place] 12 other day. Medical Branch pyridoxine 2020-0 Yes Take by Uni vers HCl, 4-12 mouth. ity of vitamin B6, 22:08: [place] (VITAMIN 12 Medical B-6 ORAL) Branch methocarbam 0 Yes 750mg Take 750 U nivers ol 750 mg 4-12 mg by ity of tablet 22:08: mouth 2 [place] [id number] (two) Medical times [place] daily. buprenorphi 2020-[address] 8 mg Univers ne-naloxone 4-12 under the ity of (SUBOXONE) 22:08: tongue [place] 8-2 mg 12 every 12 Medical sublingual (twelve) Branc h film hours as needed for Pain (scale 7-10). Cholecalcif 2020-0 Yes Take by Un [place], 4-12 mouth. ity of Vitamin D3, 22:08: [place] (VITAMIN 12 Medical D3) 2,000 Branch unit tablet ZINC ORAL 2020-0 Yes Take by Univ ers 4-12 mouth ity of 22:08: every [place] 12 other day. Medical Branch COQ10, 2020-0 Yes Take by [facility] UBIQUINOL, 4-12 mouth. ity of ORAL 22:00: [place] 55 Medical Branch levocarniti 2020-0 Yes Take by Un grayson ne 4-12 mouth. ity of (L-CARNITIN 22:00: [place] E ORAL) 55 Medical Branch COQ10, 0 Yes Take by Univers UBIQUINOL, 4-12 mouth. ity of ORAL 22:00: [place] 55 Medical Branch levocarniti 0 Yes Take by Un grayson ne 4-12 mouth. ity of (L-CARNITIN 22:00: [place] E ORAL) 55 Medical Branch COQ10, 0 Yes Take by Univers UBIQUINOL, 4-12 mouth. ity of ORAL 22:00: [place] 55 Medical Branch levocarniti 0 Yes Take by Un grayson ne 4-12 mouth. ity of (L-CARNITIN 22:00: [place] E ORAL) 55 Medical Branch diltiazem 0 2020- No Atypical 120mg Take 1 Univers XR 120 mg 4-10 04-30 chest pain capsule by ity of 24 hr 00:00: 00:00 mouth [place] capsule 00 :00 daily. Medical Branch desvenlafax Yes Generalized 200mg Take 2 Univers ine 3-25 anxiety tablets by ity of succinate 00:00: disorder mouth [place] as (PRISTIQ) 00 daily. Medical 100 mg 24 Branch hr tablet ARIPiprazol Yes Panic 15mg Take 1 Uni vers e 15 mg 3-25 disorder tablet by ity of tablet 00:00: without mouth [place] 00 agoraphobia daily. Medica l Branch ARIPiprazol Yes Severe 5mg Take 1 Un grayson e 5 mg 3-25 episode of tablet by it y of tablet 00:00: recurrent mouth [place] 00 major daily. 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 features desvenlafax Yes Generalized 200mg Take 2 Univers ine 3-25 anxiety tablets by ity of succinate 00:00: disorder mouth [place] as (PRISTIQ) 00 daily. Medical 100 mg 24 Branch hr tablet ARIPiprazol Yes Panic 15mg Take 1 Uni vers e 15 mg 3-25 disorder tablet by ity of tablet 00:00: without mouth [place] 00 agoraphobia daily. Medica l Branch ARIPiprazol Yes Severe 5mg Take 1 Un [place] e 5 mg 3-25 episode of tablet by it y of tablet 00:00: recurrent mouth [place] 00 major daily. 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 features desvenlafax Yes Generalized 200mg Take 2 [facility] ine 3-25 anxiety tablets by ity of succinate 00:00: disorder mouth [place] as (PRISTIQ) 00 daily. Medical 100 mg 24 Branch hr tablet ARIPiprazol Yes Panic 15mg Take 1 Uni vers e 15 mg 3-25 disorder tablet by ity of tablet 00:00: without mouth [place] 00 agoraphobia daily. Medica l Branch ARIPiprazol Yes Severe 5mg Take 1 Un [place] e 5 mg 3-25 episode of tablet by it y of tablet 00:00: recurrent mouth [place] 00 major daily. 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 features clonazePAM 2020- No Panic Take 1 Uni vers 1 mg tablet 3-25 04-22 disorder pill PO in ity of 00:00: 00:00 without the [place], 1 [place] :[place] agoraphobia PO in the Med ica afternoon, Branch 1 pill PO in the evening. May take additional 1/2 pill as needed for acute anxiety. allopurinoL Yes Uric acid 300mg Take 1 [facility] 300 mg 3-16 stone in tablet by ity of tablet 00:00: urine mouth [place] 00 daily. Medical Branch allopurinoL Yes Uric acid 300mg Take 1 [facility] 300 mg 3-16 stone in tablet by ity of tablet 00:00: urine mouth [place] 00 daily. Medical Branch allopurinoL Yes Uric acid 300mg Take 1 [facility] 300 mg 3-16 stone in tablet by ity of tablet 00:00: urine mouth [place] 00 daily. Medical Branch clopidogreL Yes 75mg Take 1 Univ ers (PLAVIX) 75 3-04 tablet by ity of mg tablet 00:00: mouth [place] 00 daily. Medical Branch clopidogreL 0 Yes 75mg Take 1 Univ ers (PLAVIX) 75 3-04 tablet by ity of mg tablet 00:00: mouth [place] 00 daily. Medical Branch clopidogreL 0 Yes 75mg Take 1 Univ ers (PLAVIX) 75 3-04 tablet by ity of mg tablet 00:00: mouth [place] 00 daily. Medical Branch KCL 20 2021-0 2021- No 80meq Take 60 mL Uni vers mEq/15 mL 3-09 25-04 by mouth 2 ity of solution 00:00: 00:00 (two) [place] 00 :00 times Medical daily. Branch ranolazine Yes Coronary 500mg Take 1 [facility] 500 mg 12 2-22 artery tablet by ity of hr tablet 00:00: disease mouth 2 [place] 00 involving (two) Medical [place] times Branch coronary daily. artery of [place] heart with angina pectoris ranolazine Yes Coronary 500mg Take 1 [facility] 500 mg 12 2-22 artery tablet by ity of hr tablet 00:00: disease mouth 2 [place] 00 involving (two) Medical [place] times Branch coronary daily. artery of [place] heart with angina pectoris ranolazine Yes Coronary 500mg Take 1 [facility] 500 mg 12 2-22 artery tablet by ity of hr tablet 00:00: disease mouth 2 [place] 00 involving (two) Medical [place] times Branch coronary daily. artery of [place] heart with angina pectoris metOLazone Yes Vitamin B12 2.5mg Take 1 [facility] 2.5 mg 2-16 deficiency tablet by it y of tablet 00:00: mouth [place] 00 weekly. Medical Branch metOLazone Yes Vitamin B12 2.5mg Take 1 [facility] 2.5 mg 2-16 deficiency tablet by it y of tablet 00:00: mouth [place] 00 weekly. Medical Branch metOLazone Yes Vitamin B12 2.5mg Take 1 [facility] 2.5 mg 2-16 deficiency tablet by it y of tablet 00:00: mouth [place] 00 weekly. Medical Branch diltiazem Atrial 90mg Take 1 Uni vers 90 mg 07-25 fibrillatio tablet by i ty of tablet 00:00: 00:00 n, mouth [place] 00 :00 unspecified daily. Medica l type Branch rivaroxaban Yes pulmonary 20mg Take 1 [facility] (XARELTO) 1-07 thromboembo tablet by ity of 20 mg 00:00: lism mouth [place] tablet 00 daily. Medical Indication Branch s: a clot in the lung rivaroxaban Yes pulmonary 20mg Take 1 [facility] (XARELTO) 1-07 thromboembo tablet by ity of 20 mg 00:00: lism mouth [place] tablet 00 daily. Medical Indication Branch s: a clot in the lung rivaroxaban Yes pulmonary 20mg Take 1 [facility] (XARELTO) 1-07 thromboembo tablet by ity of 20 mg 00:00: lism mouth [place] tablet 00 daily. 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 100 unit/mL n (3 mL) injection dulaglutide Yes Type 2 1.5mg inject 1.5 Univers (TRULICITY) 1-05 diabetes mg under ity of 1.5 mg/0.5 00:00: mellitus the skin [place] mL PnIj 00 with weekly. Medical cardiac Branch complicatio n empaglifloz Yes Type 2 10mg Take 10 mg [facility] in -05 diabetes by mouth ity of (JARDIANCE) 00:00: mellitus daily [place] 10 mg Tab 00 with before Medical cardiac breakfast. Branch complicatio n Insulin Yes Type 2 36U inject Univer s Glargine - diabetes 36-40 ity of (LANTUS 00:00: mellitus Units [place] SOLOSTAR 00 with under the Medica l U-100 cardiac skin Branch INSULIN) complicatio daily. 100 unit/mL n (3 mL) injection dulaglutide Yes Type 2 1.5mg inject 1.5 [facility] (TRULICITY) 1-05 diabetes mg under ity of 1.5 mg/0.5 00:00: mellitus the skin [place] mL PnIj 00 with weekly. Medical cardiac Branch complicatio n empaglifloz Yes Type 2 10mg Take 10 mg [facility] in 1-05 diabetes by mouth ity of (JARDIANCE) 00:00: mellitus daily [place] 10 mg Tab 00 with before Medical cardiac breakfast. Branch complicatio n Insulin Yes Type 2 36U inject Univer s Glargine 1-05 diabetes 36-40 ity of (LANTUS 00:00: mellitus Units [place] SOLOSTAR 00 with under the Medica l U-100 cardiac skin Branch INSULIN) complicatio daily. 100 unit/mL n (3 mL) injection dulaglutide Yes Type 2 1.5mg inject 1.5 [facility] (TRULICITY) 06-27 diabetes mg under ity of 1.5 mg/0.5 00:00: mellitus the skin [place] mL PnIj 00 with weekly. Medical cardiac Branch complicatio n empaglifloz Yes Type 2 10mg Take 10 mg [facility] in 05 diabetes by mouth ity of (JARDIANCE) 00:00: mellitus daily [place] 10 mg Tab 00 with before Medical cardiac breakfast. Branch complicatio n Insulin Yes USE [facility] [place], 06-26 DIRECTED ity of Disposable, 00:00: 1X EVERY [place] (YANNI PEN DAY. Medical NEEDLE) 32 DX:E11.59 Bran ch gauge x 5/32" Ndle Insulin Yes USE [facility] [place], 06-26 DIRECTED ity of Disposable, 00:00: 1X EVERY [place] (YANNI PEN DAY. Medical NEEDLE) 32 DX:E11.59 Bran ch gauge x 5/32" Ndle Insulin Yes USE [facility] [place], 06-26 DIRECTED ity of Disposable, 00:00: 1X EVERY [place] (YANNI PEN DAY. Medical NEEDLE) 32 DX:E11.59 Bran ch gauge x 5/32" Ndle proMETHazin 2019-06 Yes Non-intract 25mg Take 1 [facility] e 25 mg 2-20 able tablet by ity of tablet 00:00: vomiting mouth [place] 00 with every 6 Medical nausea, (six) Branch unspecified hours. For vomiting nausea. type proMETHazin 2019-06 Yes Non-intract 25mg Take 1 [facility] e 25 mg 2-20 able tablet by ity of tablet 00:00: vomiting mouth [place] 00 with every 6 Medical nausea, (six) Branch unspecified hours. For vomiting nausea. type proMETHazin 2019-06 Yes Non-intract 25mg Take 1 [facility] e 25 mg 2-20 able tablet by ity of tablet 00:00: vomiting mouth [place] 00 with every 6 Medical nausea, (six) Branch unspecified hours. For vomiting nausea. type bumetanide 2019-06 Yes Chronic 3mg Take 1.5 [facility] 2 mg tablet 2-11 diastolic tablets by ity of 00:00: heart mouth 2 failure (two) Medical times Branch daily. bumetanide 2019-06 Yes Chronic 3mg Take 1.5 [facility] 2 mg tablet 2-11 diastolic tablets by ity of 00:00: heart mouth 2 failure (two) Medical times Branch daily. bumetanide 2019-06 Yes Chronic 3mg Take 1.5 [facility] 2 mg tablet 2-11 diastolic tablets by ity of 00:00: heart mouth 2 failure (two) Medical times Branch daily. metformin 2019-06- No Type 2 500mg Take 1 [facility] [place] 500 mg 10-09 diabetes tablet by ity of 24 hr 00:00: 00:00 mellitus mouth [place] tablet 00 :00 with daily with Medical cardiac breakfast. Branch complicatio n aspirin 81 Yes Intermediat 81mg Take 1 [facility] mg chewable 8-18 e coronary tablet by ity of tablet 00:00: syndrome mouth 00 daily. Medical Branch aspirin 81 Yes Intermediat 81mg Take 1 [facility] mg chewable 8-18 e coronary tablet by ity of tablet 00:00: syndrome mouth 00 daily. Medical Branch aspirin 81 0 Yes Intermediat 81mg Take 1 [facility] mg chewable 8-18 e coronary tablet by ity of tablet 00:00: syndrome mouth 00 daily. Medical Branch aMILoride 5 Yes 10mg Take 2 Univ ers mg tablet 6-09 tablets by ity of 00:00: mouth 2 (two) Medical times Branch daily. aMILoride 5 2019-0 Yes 10mg Take 2 Univ ers mg tablet 6-09 tablets by ity of 00:00: mouth 2 (two) Medical times Branch daily. aMILoride 5 2019-0 Yes 10mg Take 2 Univ ers mg tablet 6-09 tablets by ity of 00:00: mouth 2 (two) Medical times Branch daily. atorvastati 2020- No 40mg Take 1 Uni vers n (LIPITOR) 10-07 tablet by it y of 40 mg 00:00: 00:00 mouth at [place] tablet 00 :00 bedtime. Medical Branch pantoprazol 2020- No Hiatal 40mg Take 1 U nivers e 40 mg EC 08-26 hernia tablet by i ty of tablet 00:00: 00:00 mouth 2 [place] 00 :00 (two) Medical times Branch daily. ondansetron 2020-0 Yes Hyperglycem 4mg Take 1 [facility] (ZOFRAN 1-01 ia tablet by ity of ODT) 4 mg 00:00: mouth [place] disintegrat 00 every 8 Medic al ing tablet (eight) Branch hours as needed for Nausea and Vomiting (N/V). ondansetron 2020-0 Yes Hyperglycem 4mg Take 1 [facility] (ZOFRAN 1-01 ia tablet by ity of ODT) 4 mg 00:00: mouth [place] disintegrat 00 every 8 Medic al ing tablet (eight) Branch hours as needed for Nausea and Vomiting (N/V). ondansetron 2020-0 Yes Hyperglycem 4mg Take 1 [facility] (ZOFRAN 1-01 ia tablet by ity of ODT) 4 mg 00:00: mouth [place] disintegrat 00 every 8 Medic al ing tablet (eight) Branch hours as needed for Nausea and Vomiting (N/V). cyanocobala 2018-06 Yes Vitamin B12 1000ug 1 mL by [facility] min 2-27 deficiency Intramuscu ity of (VITAMIN 00:00: lar route [place] B-12) 1,000 00 every 2 Medic al mcg/mL (two) Branch injection weeks. cyanocobala 2018-06 Yes Vitamin B12 1000ug 1 mL by [facility] min 2-27 deficiency Intramuscu ity of (VITAMIN 00:00: lar route [place] B-12) 1,000 00 every 2 Medic al mcg/mL (two) Branch injection weeks. cyanocobala 2018-06 Yes Vitamin B12 1000ug 1 mL by [facility] min 2-27 deficiency Intramuscu ity of (VITAMIN 00:00: lar route [place] B-12) 1,000 00 every 2 Medic al mcg/mL (two) Branch injection weeks. nitroglycer 2018-[address] 1 Uni vers in 1-26 tablet ity of (NITROSTAT) 00:00: under the [place] 0.4 mg 00 tongue Medical sublingual every 5 Branc h tablet (five) minutes as needed for Chest pain. nitroglycer 2018-[address] 1 Uni vers in 1-26 tablet ity of (NITROSTAT) 00:00: under the [place] 0.4 mg 00 tongue Medical sublingual every 5 Branc h tablet (five) minutes as needed for Chest pain. nitroglycer 2018-[address] 1 Uni vers in 1-26 tablet ity of (NITROSTAT) 00:00: under the [place] 0.4 mg 00 tongue Medical sublingual every 5 Branc h tablet (five) minutes as needed for Chest pain. allopurinol No Uric acid 300mg Take 1 [facility] 300 mg 9 stone in tablet by ity of tablet 00:00: urine mouth 00 daily. Medical Branch polyethylen Yes Constipatio 17g Take 17 g Univers e glycol 8-06 n, by mouth ity of (MIRALAX) 00:00: unspecified daily. constipatio Medical gram/dose n type Branch powder polyethylen Yes Constipatio 17g Take 17 g Univers e glycol 8-06 n, by mouth ity of (MIRALAX) 00:00: unspecified daily. constipatio Medical gram/dose n type Branch powder polyethylen Yes Constipatio 17g Take 17 g Univers e glycol 8-06 n, by mouth ity of (MIRALAX) 00:00: unspecified daily. 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 ferrous Yes Iron 325mg Take 1 [facility] sulfate 5-17 deficiency tablet by i ty of (IRON) 325 00:00: anemia due mouth 3 [place] mg (65 mg 00 to chronic (three) M edical iron) blood loss times Branch tablet daily with meals. ferrous Yes Iron 325mg Take 1 [facility] sulfate 5-17 deficiency tablet by i ty of (IRON) 325 00:00: anemia due mouth 3 [place] mg (65 mg 00 to chronic (three) M edical iron) blood loss times Branch tablet daily with meals. foLIC acid 2017-06 Yes High plasma 1mg Take 1 [facility] 1 mg tablet 2-05 homocystine tablet by ity of 00:00: mouth daily. Medical Branch foLIC acid 2017-06 Yes High plasma 1mg Take 1 [facility] 1 mg tablet 2-05 homocystine tablet by ity of 00:00: mouth [place] 00 daily. Medical Branch foLIC acid 2017-06 Yes High plasma 1mg Take 1 [facility] 1 mg tablet 2-05 homocystine tablet by ity of 00:00: mouth [place] 00 daily. Medical Branch magnesium 2017-06 Yes Low 1{tbl} Take 1 Univ ers oxide 400 1-03 magnesium tablet by ity of mg 00:00: level mouth [place] magnesium 00 daily. Medical Tab Branch magnesium 2017-06 Yes Low 1{tbl} Take 1 Univ ers oxide 400 1-03 magnesium tablet by ity of mg 00:00: level mouth [place] magnesium 00 daily. Medical Tab Branch magnesium 2017-06 Yes Low 1{tbl} Take 1 Univ ers oxide 400 1-03 magnesium tablet by ity of mg 00:00: level mouth [place] magnesium 00 daily. Medical Tab Branch docusate Yes 100mg Take 1 Univer s 100 mg 1-12 capsule by ity of capsule 00:00: mouth 2 00 (two) Medical times Branch daily as needed for Constipati on. docusate 20170 Yes 100mg Take 1 Univer s 100 mg 1-12 capsule by ity of capsule 00:00: mouth 2 [place] 00 (two) Medical times Branch daily as needed for Constipati on. docusate 0 Yes 100mg Take 1 Univer s 100 mg 1-12 capsule by ity of capsule 00:00: mouth 2 00 (two) Medical times Branch daily as needed for Constipati on. Aspirin 2015-06 No Notes: Do Memor ia 1-25 not crush l 23:16: or chew. [place] 00 (Same As: Ecotrin) Aspirin 2015-06 No Notes: Do Memor ia 1-25 not crush l 23:16: or chew. [place] 00 (Same As: Ecotrin) Saline 2015-06 No Notes: [facility] Flush 0.9% 1-25 (Same as: l 21:48: BD [place] 00 Posiflush) Saline 2015-06 No Notes: [facility] Flush 0.9% 1-25 (Same as: l 21:48: BD [place] 00 Posiflush) Plavix 2015-06 No Notes: Memoria 1-15 (Same As: l 15:00: Plavix) [place] 00 Plavix 2015-06 No Notes: [facility]oria 1-15 (Same As: l 15:00: Plavix) [place] 00 metoprolol 2015-06 Yes 25 mg = [...] Memoria 1-14 Tablet l 22:30: should not [place] 00 be chewed or crushed. (Same as: Protonix) Protonix 2015-06 No Notes: [facility]oria 1-14 Tablet l 22:30: should not [place] 00 be chewed or crushed. (Same as: Protonix) Lisinopril 2015-06 No Notes: Memor ia 1-14 (Same as: l 15:00: Prinivil, [place] 00 Zestril) Aspirin 325 2015-06 No Notes: Bc jae MG Oral 1-14 Take with l Tablet 15:00: food. [place] 00 Lisinopril 2015-06 No Notes: Memor ia 1-14 (Same as: l 15:00: Prinivil, [place] 00 Zestril) Aspirin 325 2015-06 No Notes: [...] With food l Tablet 04:49: or milk [place] [Xanax] 00 (Same as: Xanax) Alprazolam 2015-06 No Notes: Memor ia 1 MG Oral 1-14 With food l Tablet 04:49: or milk [place] [Xanax] 00 (Same as: Xanax) Lipitor 2015-06 No Notes: [facility]oria 1-14 (Same as: l 03:00: Lipitor) [place] 00 Clindamycin 2015-06 No Notes: Bc jae 1-14 (Same As: l 03:00: Cleocin) Saline 2015-06 No Notes: [facility]oria Flush 0.9% 1-14 preservati l 03:00: ve free. [place] 00 Lipitor 2015-06 No Notes: [facility] 1-14 (Same as: l 03:00: Lipitor) Clindamycin 2015-06 No Notes: Bc jae 1-14 (Same As: l 03:00: Cleocin) Saline 2015-06 No Notes: [facility] Flush 0.9% 1-14 preservati l 03:00: ve free. [place] 00 Insulin, 2015-06 No Notes: Memoria Aspart, 1-14 Roll in l Human 02:27: palms of hands gently; Do not shake vigorously . (Same as: NovoLOG) "single patient use only" WASTE: F/P - Black; E - Municipal Trash Bin Stable for 28 days at room temperatur e. Expires in days from ____Date Glucagon 2015-06 No 1 mg, Memoria 1-14 Route: IM, l 02:27: Drug form: PDR/INJ, PRN, Dosing Weight 127.273, kg, PRN Blood Glucose Results, Start date: 05/05/16 20:27:00 PAINTER ASSISTANT, Duration: 30 day, Stop date: 06/04/16 20:26:00 PAINTER ASSISTANT Dextrose 2015-06 No 12.5 gm, Memor ia 50% Syringe 1-14 25 mL, l 02:27: Route: IVP, Drug Form: INJ, Dosing Weight 127.273, kg, PRN, PRN Blood Glucose Results, Start date: 05/05/16 20:27:00 PAINTER ASSISTANT, Duration: 30 day, Stop date: 06/04/16 20:26:00 PAINTER ASSISTANT Insulin, 2015-06 No Notes: Memoria Aspart, 1-14 Roll in l Human 02:27: palms of [place] 00 hands gently; Do not shake vigorously . (Same as: NovoLOG) "single patient use only" WASTE: F/P - Black; E - Municipal Trash Bin Stable for 28 days at room temperatur e. Expires in days from ____Date Glucagon 2015-06 No 1 mg, [facility] 1-14 Route: IM, l 02:27: Drug form: [place] 00 PDR/INJ, PRN, Dosing Weight 127.273, kg, PRN Blood Glucose Results, Start date: 05/05/16 20:27:00 PAINTER ASSISTANT, Duration: 30 day, Stop date: 06/04/16 20:26:00 PAINTER ASSISTANT Dextrose 2015-06 No 12.5 gm, Memor ia 50% Syringe -14 25 mL, l 02:27: Route: [place] 00 IVP, Drug Form: INJ, Dosing Weight 127.273, kg, PRN, PRN Blood Glucose Results, Start date: 05/05/16 20:27:00 PAINTER ASSISTANT, Duration: 30 day, Stop date: 06/04/16 20:26:00 PAINTER ASSISTANT Morphine 2015-06 No Notes: [facility]oria 1-14 (Same l 02:00: as:MORPhin [place] 00 e Sulfate) Morphine 2015-06 No Notes: [facility] 1-14 (Same l 02:00: as:MORPhin [place] 00 e Sulfate) Plavix 2015-06 No Notes: [facility] 1-14 (Same As: l 01:58: Plavix) [place] 00 Plavix 2015-06 No Notes: [facility] 1-14 (Same As: l 01:58: Plavix) [place] 00 Saline 2015-06 No Notes: [facility] Flush 0.9% -14 (Same as: l 01:55: BD [place] 00 Posiflush) Albuterol 2015-06 No Notes: Memori a 0.833 MG/ML -14 (Same as: l / 01:55: Duoneb) [place] Ipratropium 00 [place] 0.167 MG/ML Inhalant Solution Nystatin 2015-06 No Notes: Memoria 100 UNT/MG -14 (Same l Topical 01:55: as:Mycosta Herm melodie Powder 00 tin, Nilstat) For external use only. Saline 2015-06 No Notes: [facility] Flush 0.9% 07-06 (Same as: l 01:55: BD [place] 00 Posiflush) Albuterol 2015-06 No Notes: Memori a 0.833 MG/ML 07-06 (Same as: l / 01:55: Duoneb) [place] Ipratropium 00 [place] 0.167 MG/ML Inhalant Solution Nystatin 2015-06 No Notes: [facility] 100 UNT/MG 07-06 (Same l Topical 01:55: as:Mycosta Herm melodie Powder 00 tin, Nilstat) For external use only. Nitroglycer 2015-06 No Notes: Bc jae in 07-06 (Same l 01:54: as:Tridil) [place] 00 Final conc = 0.4 mg/ml. Premix bottle. Nitroglycer 2015-06 No Notes: Bc jae in 07-06 (Same l 01:54: as:Tridil) [place] 00 Final conc = 0.4 mg/ml. Premix bottle. heparin 2015-06 No 500 mL, Memoria additive 07-06 Rate: l 25,000 unit 01:43: 22.73 [place] nn [12 00 ml/hr, unit/kg/hr] Infuse + Premix over: 22 Diluent hr, Route: Dextrose 5% IV, Dosing 500 mL Weight 94.7 kg, Total Volume: 500 mL, Start date: 05/05/16 19:43:00 PAINTER ASSISTANT, Duration: 30 day, Stop date: 06/04/16 19:42:00 PAINTER ASSISTANT Heparin 60 2015-06 No Route: Memor ia unit/kg 07-06 IVP, PRN, l Bolus 01:43: 5,800 [place] (Heparin 00 unit, 5.8 Dosing mL, Drug Weight) form: INJ, PRN, Heparin Protocol, Start date: 05/05/16 19:43:00 PAINTER ASSISTANT Stop date: 06/04/16 19:42:00 PAINTER ASSISTANT Heparin 30 2015-06 No Route: Memor ia unit/kg 07-06 IVP, PRN, l Bolus 01:43: 2,900 [place] (Heparin 00 unit, 2.9 Dosing mL, Drug Weight) form: INJ, PRN, Heparin Protocol, Start date: 05/05/16 19:43:00 PAINTER ASSISTANT Stop date: 06/04/16 19:42:00 PAINTER ASSISTANT Heparin - 2015-06 No 4,000 Memoria one time 1-14 unit, 4 l bolus for 01:43: mL, Route: He rmann ACS 00 IVP, Drug form: INJ, ONCE, Dosing Weight 127.273, kg, Priority: STAT, Start date: 05/05/16 19:43:00 PAINTER ASSISTANT, Stop date: 05/05/16 19:43:00 PAINTER ASSISTANT heparin 2015-06 No 500 mL, Memoria additive 1-14 Rate: l 25,000 unit 01:43: 22.73 [place] nn [12 00 ml/hr, unit/kg/hr] Infuse + Premix over: 22 Diluent hr, Route: Dextrose 5% IV, Dosing 500 mL Weight 94.7 kg, Total Volume: 500 mL, Start date: 05/05/16 19:43:00 PAINTER ASSISTANT, Duration: 30 day, Stop date: 06/04/16 19:42:00 PAINTER ASSISTANT Heparin 60 2015-06 No Route: Memor ia unit/kg 1-14 IVP, PRN, l Bolus 01:43: 5,800 [place] (Heparin 00 unit, 5.8 Dosing mL, Drug Weight) form: INJ, PRN, Heparin Protocol, Start date: 05/05/16 19:43:00 PAINTER ASSISTANT Stop date: 06/04/16 19:42:00 PAINTER ASSISTANT Heparin 30 2015-06 No Route: Memor ia unit/kg 1-14 IVP, PRN, l Bolus 01:43: 2,900 [place] (Heparin 00 unit, 2.9 Dosing mL, Drug Weight) form: INJ, PRN, Heparin Protocol, Start date: 05/05/16 19:43:00 PAINTER ASSISTANT Stop date: 06/04/16 19:42:00 PAINTER ASSISTANT Heparin - 2015-06 No 4,000 Memoria one time 1-14 unit, 4 l bolus for 01:43: mL, Route: He rmann ACS 00 IVP, Drug form: INJ, ONCE, Dosing Weight 127.273, kg, Priority: STAT, Start date: 05/05/16 19:43:00 PAINTER ASSISTANT, Stop date: 05/05/16 19:43:00 PAINTER ASSISTANT Morphine 2015-06 No Notes: Memoria -14 (Same l 01:25: as:MORPhin [place] 00 e Sulfate) Morphine 2015-06 No Notes: [facility]oria 1-14 (Same l 01:25: as:MORPhin [place] 00 e Sulfate) Nitroglycer 2015-06 No 1 inch, Mem oria in 0.02 13 Route: l MG/MG 23:40: TOP, [place] Topical 00 Dosing Ointment Weight 127.273, kg, ONCE, STAT, Start date: 05/05/16 17:40:00 PAINTER ASSISTANT, Stop date: 05/05/16 17:40:00 PAINTER ASSISTANT Nitroglycer 2015-06 No 1 inch, Mem oria in 0.02 07-05 Route: l MG/MG 23:40: TOP, [place] Topical 00 Dosing Ointment Weight 127.273, kg, ONCE, STAT, Start date: 05/05/16 17:40:00 PAINTER ASSISTANT, Stop date: 05/05/16 17:40:00 PAINTER ASSISTANT Aspirin 81 2015-06 No 243 mg, Bc jae MG Chewable 07-05 Route: PO, l Tablet 23:17: Drug form: [place] nn 00 [place], ONCE, Dosing Weight 127.273, kg, Priority: STAT, Start date: 05/05/16 17:17:00 PAINTER ASSISTANT, Stop date: 05/05/16 17:17:00 PAINTER ASSISTANT Aspirin 81 2015-06 No 243 mg, Bc jae MG Chewable 07-05 Route: PO, l Tablet 23:17: Drug form: [place] nn 00 [place], ONCE, Dosing Weight 127.273, kg, Priority: STAT, Start date: 05/05/16 17:17:00 PAINTER ASSISTANT, Stop date: 05/05/16 17:17:00 PAINTER ASSISTANT Morphine 2015-06 No 4 mg, Memoria 07-05 Route: l 23:15: IVP, ONCE, [place] 00 Dosing Weight 127.273, kg, Priority: STAT, Start date: 05/05/16 17:15:00 PAINTER ASSISTANT, Stop date: 05/05/16 17:15:00 PAINTER ASSISTANT Morphine 2015-06 No 4 mg, Memoria 07-05 Route: l 23:15: IVP, ONCE, [place] 00 Dosing Weight 127.273, kg, Priority: STAT, Start date: 05/05/16 17:15:00 PAINTER ASSISTANT, Stop date: 05/05/16 17:15:00 PAINTER ASSISTANT Saline 2015-06 No Notes: [facility] Flush 0.9% 1-13 preservati l 22:55: ve free. [place] Saline 2015-06 No Notes: [facility] Flush 0.9% 1-13 preservati l 22:55: ve free. Bath Acetaminoph 2015-06 No 1 - 2 tab, [...] Notes: Memoria 06-26 (Same l 00:51: as:MORPhin [place] 00 e Sulfate) Morphine 2015-06 No Notes: [facility]oria 06-26 (Same l 00:51: as:MORPhin [place] 00 e Sulfate) Zofran 2015-06 No Notes: [facility]oria 06-25 (Same as: l 23:23: Zofran) [place] 00 MEDICATION WASTE Product Size: 4 mg Product Wasted: ___ mg Morphine 2015-06 No Notes: [facility]oria 06-25 (Same l 23:23: as:MORPhin [place] 00 e Sulfate) Zofran 2015-06 No Notes: [facility]oria 06-25 (Same as: l 23:23: Zofran) [place] 00 MEDICATION WASTE Product Size: 4 mg Product Wasted: ___ mg Morphine 2015-06 No Notes: Memoria - (Same l 23:23: as:MORPhin [place] 00 e Sulfate) Saline 2015-06 No Notes: [facility] Flush 0.9% 1-03 (Same as: l 23:07: BD [place] 00 Posiflush) Saline 2015-06 No Notes: [facility] Flush 0.9% 1-03 (Same as: l 23:07: BD [place] 00 Posiflush) Acetaminoph Yes 1 tab, PO, Memoria en 300 MG / 9-13 Q6H, PRN l Codeine 14:23: Pain, X 5 [place] nn Phosphate 00 day, # 20 30 MG Oral tab, 0 Tablet Refill(s) Acetaminoph 2016-0 Yes 1 tab, PO, Memoria en 300 MG / 03-05 Q6H, PRN l Codeine 14:23: Pain, X 5 [place] nn Phosphate 00 day, # 20 30 MG Oral tab, 0 Tablet Refill(s) Morphine 2016-0 No 4 mg, Memoria 03-05 Route: l 13:44: IVP, ONCE, Dosing Weight 129.091, kg, Priority: STAT, Start date: 03/05/16 8:44:00 CDT, Stop date: 03/05/16 8:44:00 CDT Morphine 2016-0 No 4 mg, Memoria 03-05 Route: l 13:44: IVP, ONCE, Dosing Weight 129.091, kg, Priority: STAT, Start date: 03/05/16 8:44:00 CDT, Stop date: 03/05/16 8:44:00 CDT Ondansetron 2016-0 No 4 mg, Memor ia 03-05 Route: l 12:35: IVP, Drug form: INJ, ONCE, Dosing Weight 129.091, kg, Priority: STAT, Start date: 03/05/16 7:35:00 CDT, Stop date: 03/05/16 7:35:00 CDT Ondansetron 2016-0 No 4 mg, Memor ia 03-05 Route: l 12:35: IVP, Drug form: INJ, ONCE, Dosing Weight 129.091, kg, Priority: STAT, Start date: 03/05/16 7:35:00 CDT, Stop date: 03/05/16 7:35:00 CDT Aspirin 2015-0 No 324 mg, Memoria 03-05 Route: PO, l 12:22: ONCE, Dosing Weight 129.091, kg, Priority: STAT, Start date: 03/05/16 7:22:00 CDT, Stop date: 03/05/16 7:22:00 CDT Morphine 2015-0 No 2 mg, Memoria 03-05 Route: l 12:22: IVP, ONCE, Dosing Weight 129.091, kg, Priority: STAT, Start date: 03/05/16 7:22:00 CDT, Stop date: 03/05/16 7:22:00 CDT Saline No Notes: Memoria Flush 0.9% -13 (Same as: l 12:22: BD Bath 00 Posiflush) Aspirin No 324 mg, Memoria 9-13 Route: PO, l 12:22: ONCE, Dosing Weight 129.091, kg, Priority: STAT, Start date: 03/05/16 7:22:00 CDT, Stop date: 03/05/16 7:22:00 CDT Morphine No 2 mg, Memoria 9 Route: l 12:22: IVP, ONCE, Dosing Weight 129.091, kg, Priority: STAT, Start date: 03/05/16 7:22:00 CDT, Stop date: 03/05/16 7:22:00 CDT Saline No Notes: Memoria Flush 0.9% -13 (Same as: l 12:22: BD Freddy 00 Posiflush) Dilaudid No Notes: Memoria 9-10 Same as: l 12:40: Dilaudid Freddy 00 Dilaudid No Notes: Memoria 9-10 Same as: l 12:40: Dilaudid Ketorolac No 4 days Memor ia 9-10 l 10:25: MEDICATION Bath 00 WASTE Product Size: 30 mg Product Wasted: ___ mg Morphine No Notes: Memoria 9-10 (Same l 10:25: as:MORPhin Freddy 00 e Sulfate) Ondansetron No Notes: Bc jae 9-10 (Same as: l 10:25: Zofran) Freddy 00 MEDICATION WASTE Product Size: 4 mg Product Wasted: ___ mg Saline No Notes: Memoria Flush 0.9% 9-10 (Same as: l 10:25: BD Bath Posiflush) Sodium No 1,000 mL, Memori a Chloride 9-10 2,000 l 0.154 10:25: ml/hr, Freddy MEQ/ML 00 Infuse Injectable Over: 30 Solution minutes, Route: IV, 1,000, Drug form: INJ, ONCE, Priority: STAT, Dosing Weight 128.636 kg, Start date: 03/02/16 5:25:00 CDT, Duration: 1 doses or times, Stop date: 03/02/16 5:25:00 CDT Ketorolac No 4 days Memor ia -10 l 10:25: MEDICATION Freddy 00 WASTE Product Size: 30 mg Product Wasted: ___ mg Morphine No Notes: Memoria -10 (Same l 10:25: as:MORPhin Freddy 00 e Sulfate) Ondansetron No Notes: Bc jae 03-02 (Same as: l 10:25: Zofran) Freddy 00 MEDICATION WASTE Product Size: 4 mg Product Wasted: ___ mg Saline No Notes: Memoria Flush 0.9% 03-02 (Same as: l 10:25: BD Freddy 00 Posiflush) Sodium No 1,000 mL, Memori a Chloride 10 2,000 l 0.154 10:25: ml/hr, Bath MEQ/ML 00 Infuse Injectable Over: 30 Solution minutes, Route: IV, 1,000, Drug form: INJ, ONCE, Priority: STAT, Dosing Weight 128.636 kg, Start date: 03/02/16 5:25:00 CDT, Duration: 1 doses or times, Stop date: 03/02/16 5:25:00 CDT Acetaminoph Yes 1 tab, PO, Memoria en 300 MG / 8-29 Q6H, PRN l Codeine 23:44: Pain, # 28 Herm melodie Phosphate 00 tab, 0 30 MG Oral Refill(s) Tablet [Tylenol with Codeine #3] Acetaminoph Yes 1 tab, PO, Memoria en 300 MG / 8-29 Q6H, PRN l Codeine 23:44: Pain, # 28 Herm melodie Phosphate 00 tab, 0 30 MG Oral Refill(s) Tablet [Tylenol with Codeine #3] Protonix No Notes: Memoria 8-28 Tablet l 12:30: should not Freddy 00 be chewed or crushed. (Same as: Protonix) Protonix No Notes: Memoria 8-28 Tablet l 12:30: should not Freddy 00 be chewed or crushed. (Same as: Protonix) Lipitor No Notes: Memoria 8- (Same as: l 02:00: Lipitor) Freddy 00 Lipitor No Notes: Memoria 8- (Same as: l 02:00: Lipitor) Freddy 00 Morphine No Notes: Memoria 8- (Same l 16:54: as:MORPhin Bath 00 e Sulfate) Morphine No Notes: Memoria 8- (Same l 16:54: as:MORPhin Freddy 00 e Sulfate) Lovenox No Notes: Memoria 8 (Same as: l 15:00: Lovenox) Bath 00 Lovenox No Notes: Memoria 8- (Same as: l 15:00: Lovenox) Freddy 00 Lisinopril No Notes: Memor ia 8- (Same as: l 14:55: Prinivil, Freddy 00 Zestril) Lisinopril No Notes: Memor ia 8- (Same as: l 14:55: Prinivil, Bath 00 Zestril) Imdur No Notes: Memoria 8- (Same l 14:54: as:Imdur) Freddy 00 "Do Not Crush" Take on empty stomach/ full glass of water. Do not crush Plavix No Notes: Memoria 8 (Same As: l 14:54: Plavix) Freddy 00 Aspirin 81 No Notes: Do Me moria MG Enteric 02-16 not crush l Coated 14:54: or chew. Freddy Tablet 00 (Same As: Ecotrin) Imdur No Notes: Memoria 8- (Same l 14:54: as:Imdur) Bath 00 "Do Not Crush" Take on empty stomach/ full glass of water. Do not crush Plavix No Notes: Memoria 8- (Same As: l 14:54: Plavix) Bath 00 Aspirin 81 No Notes: Do Me moria MG Enteric 8-27 not crush l Coated 14:54: or chew. Freddy Tablet 00 (Same As: Ecotrin) Zofran ODT No Notes: Memor ia 8-27 (Same as: l 14:25: Zofran Bath 00 ODT) Nitroglycer No Notes: Bc jae in 0.4 MG 8-27 (Same l Sublingual 14:25: as:Nitroqu H ermann Tablet 00 ick, [Nitrostat] Nitrostat) "Do Not Crush" Sublingual tablet Zofran ODT No Notes: Memor ia 8-27 (Same as: l 14:25: Zofran Freddy 00 ODT) Nitroglycer No Notes: Bc jae in 0.4 MG 8-27 (Same l Sublingual 14:25: as:Nitroqu H ermann Tablet 00 ick, [Nitrostat] Nitrostat) "Do Not Crush" Sublingual tablet Alprazolam No Notes: Memor ia 1 MG Oral 8-27 With food l Tablet 14:23: or milk Bath [Xanax] 00 (Same as: Xanax) Alprazolam No Notes: Memor ia 1 MG Oral 8-27 With food l Tablet 14:23: or milk Freddy [Xanax] 00 (Same as: Xanax) pneumococca No Notes: Bc jae l capsular 8-27 (Same as: l polysacchar 14:00: Pneumovax H ermann el type 1 ) vaccine / Refrigerat pneumococca e l capsular polysacchar el type 10A vaccine / pneumococca l capsular polysacchar el type 11A vaccine / pneumococca l capsular polysacchar el type 12F vaccine / pneumococca l capsular polysacchar pneumococca No Notes: Cb jae l capsular 8-27 (Same as: l polysacchar 14:00: Pneumovax H ermann el type 1 ) vaccine / Refrigerat pneumococca e l capsular [...] Yes 1 tab, PO, Me moria hydrochlori 8- BID, # 60 l de 500 MG / 13:07: tab, 0 Herm melodie repaglinide 00 Refill(s) 1 MG Oral Tablet Acetaminoph No 1 tab, PO, Memoria en 300 MG / 02-16 Q6H, PRN l Codeine 13:07: Pain, # 28 Herm melodie Phosphate 00 tab, 0 30 MG Oral [...] PO, l Tablet 13:07: Daily, # Freddy 00 30 tab, 0 Refill(s) Potassium Yes [...] 500 MG / 13:07: tab, 0 Herm melodie repaglinide 00 Refill(s) 1 MG Oral Tablet Acetaminoph No 1 tab, PO, Memoria en 300 MG / 02-16 Q6H, PRN l Codeine 13:07: Pain, # 28 Herm melodie Phosphate 00 tab, 0 30 MG Oral Refill(s) Tablet [Tylenol with Codeine #3] lisinopril Yes 2.5 mg = 1 M emoria 2.5 mg oral 8-27 tab, PO, l tablet 13:07: Daily, # Freddy 00 30 tab, 0 Refill(s) clopidogrel Yes 75 mg = 1 M emoria 75 MG Oral 8-27 tab, PO, l Tablet 13:07: Daily, # Bath [Plavix] 00 30 tab, 0 Refill(s) atorvastati Yes 80 mg = 1 M emoria n 80 MG 8-27 tab, PO, l Oral Tablet 13:07: Bedtime, # Bath [Lipitor] 00 30 tab, 0 Refill(s) Ondansetron No 4 mg = 1 Me moria 4 MG 8-27 tab, PO, l Disintegrat 13:07: Q12H, PRN H ermann ing Tablet 00 Nausea, 0 [Zofran] Refill(s) Aspirin 81 Yes 81 mg = 1 Me moria MG Enteric 8-27 tab, PO, l Coated 13:07: Daily, # Bath Tablet 00 90 tab, 3 Refill(s) Nitroglycer [...] PO, l Tablet 13:07: Daily, # Freddy 00 30 tab, 0 Refill(s) Ceftriaxone No 1 gm, Memor ia 02-16 Route: l 12:01: IVPB, Drug Freddy form: PDR/INJ, ONCE, Dosing Weight 129.545, kg, Priority: STAT, Start date: 02/17/16 7:01:00 CDT, Stop date: 02/17/16 7:01:00 CDT Ceftriaxone 2016-0 No 1 gm, Memor ia 02-16 Route: l 12:01: IVPB, Drug Freddy form: PDR/INJ, ONCE, Dosing Weight 129.545, kg, Priority: STAT, Start date: 02/17/16 7:01:00 CDT, Stop date: 02/17/16 7:01:00 CDT Dilaudid 2015-0 No 0.5 mg, Memori a 02-16 Route: l 11:28: IVP, ONCE, Freddy Dosing Weight 129.545, kg, Priority: STAT, Start date: 02/17/16 6:28:00 CDT, Stop date: 02/17/16 6:28:00 CDT Dilaudid 2016-0 No 0.5 mg, Memori a 02-16 Route: l 11:28: IVP, ONCE, Bath Dosing Weight 129.545, kg, Priority: STAT, Start date: 02/17/16 6:28:00 CDT, Stop date: 02/17/16 6:28:00 CDT Zofran 2016-0 No 4 mg, Memoria 02-16 Route: l 10:32: IVP, Drug Bath form: INJ, ONCE, Dosing Weight 129.545, kg, Priority: STAT, Start date: 02/17/16 5:32:00 CDT, Stop date: 02/17/16 5:32:00 CDT Dilaudid 2015-0 No 0.5 mg, Memori a 02-16 Route: l 10:32: IVP, ONCE, Bath 00 Dosing Weight 129.545, kg, Priority: STAT, Start date: 02/17/16 5:32:00 CDT, Stop date: 02/17/16 5:32:00 CDT Zofran 2016-0 No 4 mg, Memoria 02-16 Route: l 10:32: IVP, Drug Bath form: INJ, ONCE, Dosing Weight 129.545, kg, Priority: STAT, Start date: 02/17/16 5:32:00 CDT, Stop date: 02/17/16 5:32:00 CDT Dilaudid No 0.5 mg, Memori a 02-16 Route: l 10:32: IVP, ONCE, Bath 00 Dosing Weight 129.545, kg, Priority: STAT, Start date: 02/17/16 5:32:00 CDT, Stop date: 02/17/16 5:32:00 CDT Saline No Notes: Memoria Flush 0.9% 8-27 (Same as: l 10:19: BD Freddy Posiflush) Saline No Notes: Memoria Flush 0.9% 8-27 (Same as: l 10:19: BD Freddy Posiflush) Immunizations Ordered Filled Immunization Date Status Comments Sour e Immunization Name Name Td 2017-06-26 Completed [facility]00 [facility] 2017-06-26 Completed [facility] 00:00:00 [facility] Td 2017-06-26 Completed [facility] 00:00:00 [facility] Td 2015-03-19 Completed [facility] 00:00:00 [facility] Td 2015-03-19 Completed [facility] 00:00:00 [facility] Td 2015-03-19 Completed [facility] 00:00:00 [facility] Vital Signs Vital Name Observation Time Observation Value Comments Source Systolic blood 2020-10-24 18:40:00 133 mm[Hg] Univer sity of pressure [facility] Diastolic blood 2020-10-24 18:40:00 79 mm[Hg] Unive rsity of [facility] Heart rate 2020-10-24 18:40:00 80 /min [facility] Body temperature 2020-10-24 18:40:[address] [facility] 2020-10-24 18:40:00 18 /min [facility] Body height 2020-10-24 18:40:00 177.8 cm [facility] Body weight 2020-10-24 18:40:00 130.908 kg [facility] BMI 2020-10-24 18:40:00 41.41 kg/m2 [facility] Oxygen saturation in 2020-10-24 18:40:00 96 /min [facility] Arterial blood by [facility] Pulse oximetry Branch Respitory Rate 2016-05-17 23:59:00 Memori al Freddy Temperature Oral (F) 2016-05-17 23:59:00 98.1 F [facility]dy Heart Rate 2016-05-17 23:59:00 [facility] Systolic (mm Hg) 2016-05-17 23:59:00 Bc rial Bath Diastolic (mm Hg) 2016-05-17 23:59:00 Mem orial Freddy Weight 2016-05-17 21:43:00 [facility] Freddy Temperature Oral (F) 2016-05-17 21:43:00 97.6 F [facility] Respitory Rate 2016-05-17 21:43:00 Memori al Freddy Heart Rate 2016-05-17 21:43:00 [facility] [place] Systolic (mm Hg) 2016-05-17 21:43:00 Bc rial Freddy Diastolic (mm Hg) 2016-05-17 21:43:00 Mem orial Freddy Respitory Rate 2016-05-06 21:58:00 Memori al Bath Systolic (mm Hg) 2016-05-06 21:58:00 Bc rial Bath Diastolic (mm Hg) 2016-05-06 21:58:00 Mem orial Freddy Heart Rate 2016-05-06 21:58:00 [facility] Freddy Temperature Oral (F) 2016-05-06 21:58:00 97.9 F [facility] Respitory Rate 2016-05-06 19:19:00 Memori al Freddy Temperature Oral (F) 2016-05-06 17:24:00 97.4 F [facility]dy Systolic (mm Hg) 2016-05-06 17:24:00 Bc rial Freddy Diastolic (mm Hg) 2016-05-06 17:24:00 Mem orial Freddy Respitory Rate 2016-05-06 17:24:00 Memori al Bath Heart Rate 2016-05-06 17:24:00 [facility] Freddy Systolic (mm Hg) 2016-05-06 16:20:00 Bc rial Freddy Diastolic (mm Hg) 2016-05-06 16:20:00 Mem orial Freddy Heart Rate 2016-05-06 16:20:00 [facility] Temperature Oral (F) 2016-05-06 16:20:00 97.9 F [facility] Weight 2016-05-06 03:12:00 [facility] BMI Calculated 2016-05-06 03:12:00 Memori al Freddy Height 2016-05-06 03:12:00 177.8 cm [facility] Weight 2016-05-05 23:05:00 [facility] Systolic (mm Hg) 2016-04-26 01:24:00 Bc rial Freddy Diastolic (mm Hg) 2016-04-26 01:24:00 Mem orial Bath Respitory Rate 2016-04-26 01:24:00 Memori al Freddy Heart Rate 2016-04-26 01:24:00 [facility] Temperature Oral (F) 2016-04-26 01:24:00 97.4 F [facility] Freddy Weight 2016-04-25 23:04:00 [facility] Freddy BMI Calculated 2016-04-25 23:04:00 Memori al Freddy Height 2016-04-25 23:04:00 177.8 cm [facility] Respitory Rate 2016-04-25 23:04:00 Memori al Bath Temperature Oral (F) 2016-04-25 23:04:00 97.2 F [facility] Heart Rate 2016-04-25 23:04:00 [facility] Systolic (mm Hg) 2016-04-25 23:04:00 Bc rial Freddy Diastolic (mm Hg) 2016-04-25 23:04:00 Mem orial Bath Temperature Oral (F) 2016-03-05 14:32:00 98.7 F [facility] Freddy Respitory Rate 2016-03-05 14:32:00 Memori al Freddy Systolic (mm Hg) 2016-03-05 14:32:00 Bc rial Freddy Diastolic (mm Hg) 2016-03-05 14:32:00 Mem orial Freddy Respitory Rate 2016-03-05 12:48:00 Memori al Freddy Systolic (mm Hg) 2016-03-05 12:48:00 Bc rial Freddy Diastolic (mm Hg) 2016-03-05 12:48:00 Mem orial Bath Systolic (mm Hg) 2016-03-05 12:06:00 Bc rial Freddy Diastolic (mm Hg) 2016-03-05 12:06:00 Mem orial Bath Height 2016-03-05 12:06:00 177.8 cm [facility] Freddy BMI Calculated 2016-03-05 12:06:00 Memori al Bath Weight 2016-03-05 12:06:00 [facility] Heart Rate 2016-03-05 12:06:00 [facility] Freddy Temperature Oral (F) 2016-03-05 12:06:00 98.9 F [facility]dy Respitory Rate 2016-03-05 12:06:00 Memori al Bath Temperature Oral (F) 2016-03-02 14:14:00 98.2 F [facility]dy Heart Rate 2016-03-02 14:14:00 [facility] Respitory Rate 2016-03-02 14:14:00 Memori al Bath Systolic (mm Hg) 2016-03-02 12:39:00 Bc rial Bath Diastolic (mm Hg) 2016-03-02 12:39:00 Mem orial Freddy Heart Rate 2016-03-02 12:39:00 [facility] [place] Weight 2016-03-02 10:03:00 [facility] Temperature Oral (F) 2016-03-02 10:03:00 98.0 F [facility] Freddy Respitory Rate 2016-03-02 10:03:00 Memori al Freddy Systolic (mm Hg) 2016-03-02 10:03:00 Bc rial Freddy Diastolic (mm Hg) 2016-03-02 10:03:00 Mem orial Bath Heart Rate 2016-03-02 10:03:00 [facility] Freddy Systolic (mm Hg) 2016-02-20 01:05:00 Bc rial Freddy Diastolic (mm Hg) 2016-02-20 01:05:00 Mem orial Bath Temperature Oral (F) 2016-02-20 01:05:00 98.0 F [facility] Respitory Rate 2016-02-20 01:05:00 Memori al Bath Heart Rate 2016-02-20 01:05:00 [facility] [place] Heart Rate 2016-02-19 20:37:00 [facility] Freddy Respitory Rate 2016-02-19 20:37:00 Memori al Freddy Temperature Oral (F) 2016-02-19 20:37:00 97.8 F [facility] Systolic (mm Hg) 2016-02-19 20:37:00 Bc rial Freddy Diastolic (mm Hg) 2016-02-19 20:37:00 Mem orial Freddy Systolic (mm Hg) 2016-02-19 17:00:00 Bc rial Bath Diastolic (mm Hg) 2016-02-19 17:00:00 Mem orial Freddy Heart Rate 2016-02-19 17:00:00 [facility] Freddy Temperature Oral (F) 2016-02-19 17:00:00 97.9 F [facility] Respitory Rate 2016-02-19 17:00:00 Phuongori al Bath Height 2016-02-17 13:19:00 177.8 cm [facility] Freddy BMI Calculated 2016-02-17 13:19:00 Memori al Bath Weight 2016-02-17 13:19:00 [facility] Freddy Weight 2016-02-17 10:16:00 [facility] BMI Calculated 2016-02-17 [facility] Height 2016-02-17 10:16:00 [facility] Procedure Date / Time Performing Clinician Source Performed ASSIGNMENT OF BENEFITS 2020-10-26 20:34:41 Doctor Unassigned, Un [facility] [place] [facility] POCT GLUCOSE (AUTOMATED) 2020-09-29 16:48:00 Thaddeus Interiano [facility] POCT GLUCOSE (AUTOMATED) 2020-09-29 12:57:00 Thaddeus Interiano [facility] CBC WITH DIFF 2020-09-29 10:05:00 Thaddeus Interiano [facility] BASIC METABOLIC PANEL (NA, 2020-09-29 10:05:00 Thaddeus Interiano [facility] K, CL, CO2, GLUCOSE, BUN, Medica l Branch CREATININE, CA) TROPONIN I 2020-09-29 07:13:00 Blue Strange [facility] POCT GLUCOSE (AUTOMATED) 2020-09-29 01:30:00 Thaddeus Interiano [facility] TROPONIN I 2020-09-29 01:26:00 Thaddeus Interiano [facility] TROPONIN I 2020-09-28 21:36:00 Thaddeus Interiano [facility] POCT GLUCOSE (AUTOMATED) 2020-09-28 21:11:00 Thaddeus Interiano [facility] X[facility] CHEST 1 VW 2020-09-28 19:02:30 Nick Palomino [facility] CBC WITH DIFF 2020-09-28 18:33:00 Nick Palomino [facility] BASIC METABOLIC PANEL (NA, 2020-09-28 18:33:00 Nick Palomino [facility] K, CL, CO2, GLUCOSE, BUN, Medica l Branch CREATININE, CA) HEPATIC FUNCTION PANEL 2020-09-28 18:33:00 Nick Palomino [facility] ([id number]) (ALB,T.PRO,BILI Medical Branch T,BU/BC,ALT,AST,ALK PHOS) TROPONIN I 2020-09-28 18:33:00 Nick Palomino [facility] LIPASE 2020-09-28 18:33:00 Nick Palomino [facility] ACTIVATED PARTIAL THRMPLAS 2020-09-28 18:33:00 Nick Palomino [facility] [place] [facility] N-TERMINAL PRO-BNP 2020-09-28 18:33:00 Nick Palomino [facility] COVID-19 (ID NOW RAPID 2020-09-28 18:33:00 Nick Palomino [facility] TESTING) Medical Branch LAB ONLY COVID 2020-09-28 18:33:00 Nick Palomino [facility] INTERPRETATION [facility] GLYCOSYLATED HEMOGLOBIN 2020-09-28 18:33:00 Thaddeus Interiano [facility] (A1C) [facility] Branch EKG-12 LEAD 2020-09-28 18:21:27 Nick Palomino [facility] CONSENT/REFUSAL FOR 2020-09-28 17:59:47 Doctor Unassigned, [facility] DIAGNOSIS AND TREATMENT [facility] ADMISSION 2020-09-28 05:01:00 Doctor Unassigned, [facility] BASIC METABOLIC PANEL (NA, 2020-09-07 16:47:00 Omole, Nima U [facility] K, CL, CO2, GLUCOSE, BUN, [place] Medica l Branch CREATININE, CA) BASIC METABOLIC PANEL (NA, 2020-08-31 14:53:00 Vonda Kaur [facility] K, CL, CO2, GLUCOSE, BUN, Medica l Branch CREATININE, CA) CONSENT/REFUSAL FOR 2020-08-31 14:44:24 Doctor Unassigned, [facility] DIAGNOSIS AND TREATMENT [facility] ASSIGNMENT OF BENEFITS 2020-08-31 14:44:06 Doctor Unassigned, [facility] [place] [facility] BASIC METABOLIC PANEL (NA, 2020-08-26 23:46:00 Pura Elam [facility] K, CL, CO2, GLUCOSE, BUN, Medica l Branch CREATININE, CA) POCT GLUCOSE (AUTOMATED) 2020-08-26 21:57:00 Nava [facility] POCT GLUCOSE (AUTOMATED) 2020-08-26 17:39:00 Nava [facility] POCT GLUCOSE (AUTOMATED) 2020-08-26 13:33:00 Nava [facility] CBC WITH DIFF 2020-08-26 09:55:00 Nava [facility] BASIC METABOLIC PANEL (NA, 2020-08-26 09:55[facility]00 [facility] K, CL, CO2, GLUCOSE, BUN, Medica l Branch CREATININE, CA) N-TERMINAL PRO-BNP 2020-08-26 09:55:00 Junito Queazda [facility] POCT GLUCOSE (AUTOMATED) 2020-08-26 04:16:00 Nava [facility] TROPONIN I 2020-08-26 03:08[facility] 2020-08-26 03:08:00 Herbert Javed [facility] POCT GLUCOSE (AUTOMATED) 2020-08-26 01:25:00 [facility] US ABDOMEN LIMITED 2020-08-26 00:38:40 Herbert Javed [facility] POCT GLUCOSE (AUTOMATED) 2020-08-25 23:06:00 [facility] ECHO ROUTINE W/DOPPLER 2020-08-25 21:23:50 Junito Quezada [facility] TROPONIN I 2020-08-25 17:35:00 Nava [facility] LIPID PANEL ([id number])(TOTAL 2020-08-25 17:35:00 Junito Quezada [facility] CHOLESTEROL, [facility] TRIGLYCERIDES, HDL) XR CHEST 1 VW 2020-08-25 11:38:57 Nick Palomino [facility] CBC WITH DIFF 2020-08-25 11:35:00 Nick Palomino [facility] BASIC METABOLIC PANEL (NA, 2020-08-25 11:35:00 Nick Palomino [facility] K, CL, CO2, GLUCOSE, BUN, Medica l Branch CREATININE, CA) HEPATIC FUNCTION PANEL 2020-08-25 11:35:00 Nick Palomino [facility] ([id number]) (ALB,T.PRO,BILI Medical Branch T,BU/BC,ALT,AST,ALK PHOS) LIPASE 2020-08-25 11:35:00 Nick Palomino [facility] TROPONIN I 2020-08-25 11:35:00 Nick Palomino [facility] ACTIVATED PARTIAL THRMPLAS 2020-08-25 11:35:00 Nick Palomino [facility] PROTHROMBIN TIME / INR 2020-08-25 11:35:00 Nick Palomino [facility] N-TERMINAL PRO-BNP 2020-08-25 11:35:00 Nick Palomino [facility] COVID-19 (ID NOW RAPID 2020-08-25 11:32:00 Nick Palomino [facility] TESTING) Medical Branch LAB ONLY COVID 2020-08-25 11:32:00 Nick Palomino [facility] HB ECG ROUTINE & RHYTHM 2020-08-25 11:27:04 Nick Palomino [facility] [place] CONSENT/REFUSAL FOR 2020-08-25 11:20:36 Doctor Unassigned, [facility] DIAGNOSIS AND TREATMENT [facility] ADMISSION 2020-08-25 06:01:00 Doctor Tong [facility] [place] BASIC METABOLIC PANEL (NA, 2020-08-24 14:36:00 Robert Adkins [facility] K, CL, CO2, GLUCOSE, BUN, [place] Medica l Branch CREATININE, CA) INSURANCE CORRESPONDENCE 2020-08-20 06:01:00 Doctor Fortune [facility] HB ECG ROUTINE & RHYTHM 2020-08-17 20:36:36 Herbert [facility] Medical Branch CBC WITH DIFF 2020-08-17 20:36:00 Herbert [facility] BASIC METABOLIC PANEL (NA, 2020-08-17 20:36:00 Herbert Reeves [facility] K, CL, CO2, GLUCOSE, BUN, Medica l Branch CREATININE, CA) CONSENT/REFUSAL FOR 2020-08-17 20:12:35 Doctor Tong [facility] DIAGNOSIS AND TREATMENT [facility] BASIC METABOLIC PANEL (NA, 2020-08-17 17:51:00 Vonda Kaur [facility] K, CL, CO2, GLUCOSE, BUN, Medica l Branch CREATININE, CA) MAGNESIUM 2020-08-17 17:51:00 Vonda Kaur [facility] N-TERMINAL PRO-BNP 2020-08-17 17:51:00 Vonda Kaur [facility] EMERGENCY SERVICES 2020-08-17 06:01:00 Doctor Tong [facility] AGREEMENTS AND [facility] AUTHORIZATIONS BASIC METABOLIC PANEL (NA, 2020-08-03 15:13:00 Robert Adkins U [facility] K, CL, CO2, GLUCOSE, BUN, [place] [facility]ica [facility] CREATININE, CA) N-TERMINAL PRO-BNP 2020-08-03 15:13:00 Vonda Kaur [facility] Medical Branch NOTICE OF PRIVACY 2020-08-03 15:03:19 Doctor Tong, [facility] PRACTICES [facility] [place] CONSENT/REFUSAL FOR 2020-08-03 15:03:01 Doctor Unassigned, [facility] DIAGNOSIS AND TREATMENT [place] [facility] ASSIGNMENT OF BENEFITS 2020-08-03 15:02:44 Doctor Unassigned, [facility] [place] [facility] Catheterization of right Memoria l Freddy heart Lithotripsy [facility] Placement of stent in [facility] ermann cardiac conduit<sup>1</sup> Plan of Care Planned Activity Planned Date Details Comments Source Future Scheduled 2027-06-26 DTaP,Tdap,and Td Postponed from Unive rsity of Test 00:00:00 Vaccines (1 - Tdap) 1988 (Not [place] [facility] [code = Indicated) Branch DTaP,Tdap,and Td Vaccines (1 - Tdap)] Future Scheduled 2027-06-26 DTaP,Tdap,and Td Postponed from Unive rsity of Test 00:00:00 Vaccines (1 - Tdap) 1988 (Not [facility] [code = Indicated) Branch DTaP,Tdap,and Td Vaccines (1 - Tdap)] Future Scheduled 2027-06-26 DTaP,Tdap,and Td Postponed from Unive rsity of Test 00:00:00 Vaccines (1 - Tdap) 1988 (Not [place] [facility] [code = Indicated) Branch DTaP,Tdap,and Td Vaccines (1 - Tdap)] Future Scheduled 2027-04-22 Screening for [facility] 00:00:00 malignant neoplasm [facility] (procedure) Branch [code = [id number]] Future Scheduled 2027-04-22 Screening for [facility] 00:00:00 malignant neoplasm [facility] (procedure) Branch [code = [id number]] Future Scheduled 2027-04-22 Screening for [facility] Test 00:00:00 malignant neoplasm [facility] (procedure) Branch [code = [id number]] Future Scheduled 2027-04-22 Screening for [facility] Test 00:00:00 malignant neoplasm [facility] colon (procedure) Branch [code = [id number]] Future Scheduled 2027-04-22 Screening for [facility] Test 00:00:00 malignant neoplasm [facility] colon (procedure) Branch [code = [id number]] Future Scheduled 2027-04-22 Screening for [facility] Test 00:00:00 malignant neoplasm [facility] colon (procedure) Branch [code = [id number]] Future Scheduled 2021-10-12 Depression screening [facility] 00:00:00 (procedure) [code = [place] [facility] [id number]] Branch Future Scheduled 2021-10-12 Depression screening [facility] 00:00:00 (procedure) [code = [place] [facility] [id number]] Branch Future Scheduled 2021-10-12 Depression screening [facility] 00:00:00 (procedure) [code = [place] [facility] 280962519] Branch Future Scheduled 2021-09-29 Creatinine [facility] 00:00:00 measurement [place] [facility] (procedure) [code = Branch [id number]] Future Scheduled 2021-09-29 Creatinine [facility] 00:00:00 measurement [place] [facility] (procedure) [code = Branch 89059450] Future Scheduled 2021-09-29 Creatinine [facility] 00:00:00 measurement [place] [facility] (procedure) [code = Branch 12553186] Future Scheduled 2021-08-25 Calculated low [facility] 00:00:00 density lipoprotein [place] [facility] cholesterol level [facility] (procedure) [code = 750575364] Future Scheduled 2021-08-25 Calculated low [facility] 00:00:00 density lipoprotein [place] [facility] cholesterol level [facility] (procedure) [code = 077608756] Future Scheduled 2021-08-25 Calculated low [facility]it [facility] Test 00:00:00 density lipoprotein [facility] dical cholesterol level Branch (procedure) [code = 446685402] Future Scheduled 2021-03-31 PNEUMOCOCCAL 0-64 Postponed from Univ ersity of Test 00:00:00 YEARS COMBINED 1976 [place] [facility] SERIES (1 of 3 - (Refused) Branch PCV13) [code = PNEUMOCOCCAL 0-64 YEARS COMBINED SERIES (1 of 3 - PCV13)] Future Scheduled 2021-03-31 PNEUMOCOCCAL 0-64 Postponed from [facility] ers[facility] Test 00:00:00 YEARS COMBINED 1976 [place] [facility] SERIES (1 of 3 - (Refused) Branch PCV13) [code = PNEUMOCOCCAL 0-64 YEARS COMBINED SERIES (1 of 3 - PCV13)] Future Scheduled 2021-03-31 PNEUMOCOCCAL 0-64 Postponed from [facility] ers[facility] of Test 00:00:00 YEARS COMBINED 1976 [place] [facility] SERIES (1 of 3 - (Refused) Branch PCV13) [code = PNEUMOCOCCAL 0-64 YEARS COMBINED SERIES (1 of 3 - PCV13)] Future Scheduled 2021-03-30 Hemoglobin A1c [facility] 00:00:00 measurement [place] [facility] (procedure) [code = Branch 55915871] Future Scheduled 2021-03-30 Hemoglobin A1c [facility] 00:00:00 measurement [place] [facility] (procedure) [code = Branch 12890460] Future Scheduled 2021-03-30 Hemoglobin A1c [facility] 00:00:00 measurement [place] [facility] (procedure) [code = Branch 28996073] Future Scheduled 2021-02-21 Diabetic foot [facility] 00:00:00 examination [place] [facility] (regime/therapy) Branch [code = 121450808] Future Scheduled 2021-02-21 INFLUENZA VACCINE [facility] 00:00:00 (Season Ended) [code [place] [facility] = INFLUENZA VACCINE Branch (Season Ended)] Future Scheduled 2021-02-21 Diabetic foot [facility] 00:00:00 examination [place] [facility] (regime/therapy) Branch [code = 235676638] Future Scheduled 2021-02-21 INFLUENZA VACCINE [facility] Test 00:00:00 (Season Ended) [code [place] [facility] = INFLUENZA VACCINE Branch (Season Ended)] Future Scheduled 2021-02-21 Diabetic foot [facility] 00:00:00 examination [place] [facility] (regime/therapy) Branch [code = 696708534] Future Scheduled 2021-02-21 INFLUENZA VACCINE [facility] Test 00:00:00 (Season Ended) [code [place] [facility] = INFLUENZA VACCINE Branch (Season Ended)] Future Scheduled 2021-01-10 Examination of [facility] 00:00:00 retina (procedure) [place] [facility] [code = 079308023] Branch Future Scheduled 2021-01-10 Examination of [facility] 00:00:00 retina (procedure) [place] [facility] [code = 973685376] Branch Future Scheduled 2021-01-10 Examination of [facility] 00:00:00 retina (procedure) [place] [facility] [code = 883900548] Branch Future Scheduled 2020-12-01 Microalbumin [facility] 00:00:00 measurement, urine, [place] [facility] quantitative [facility] (procedure) [code = 482160443] Future Scheduled 2020-12-01 Microalbumin [facility] 00:00:00 measurement, urine, [place] [facility] quantitative [facility] (procedure) [code = 849213106] Future Scheduled 2020-12-01 Microalbumin [facility] 00:00:00 measurement, urine, [place] [facility] quantitative [facility] (procedure) [code = 307372066] Future Scheduled 2019 Screening for occult [facility] Test 00:00:00 blood in feces [place] [facility] (procedure) [code = Branch 972500739] Future Scheduled 2019 Stool DNA-based [facility] Test 00:00:00 colorectal cancer [facility] screening Branch (procedure) [code = 071337163693469] Future Scheduled 2019 Flexible fiberoptic Univ ersity of Test 00:00:00 sigmoidoscopy [facility] (procedure) [code = Branch 29944515] Future Scheduled 2019 Zoster Recombinant Unive rs[facility] of Test 00:00:00 Vaccine (SHINGRIX) [place] [facility] (1 of 2) [code = Branch Zoster Recombinant Vaccine (SHINGRIX) (1 of 2)] Future Scheduled 2019 Screening for occult [facility] Test 00:00:00 blood in feces [facility] (procedure) [code = Branch 608307773] Future Scheduled 2019 Stool DNA-based [facility]i [facility] Test 00:00:00 colorectal cancer [facility] screening Branch (procedure) [code = 114917473153377] Future Scheduled 2019 Flexible fiberoptic Univ ers[facility] of Test 00:00:00 sigmoidoscopy [place] [facility] (procedure) [code = Branch 62257866] Future Scheduled 2019 Zoster Recombinant [facility]ive rs[facility] of Test 00:00:00 Vaccine (SHINGRIX) [place] [facility] (1 of 2) [code = Branch Zoster Recombinant Vaccine (SHINGRIX) (1 of 2)] Future Scheduled 2019 Screening for occult [facility] Test 00:00:00 blood in feces [facility] (procedure) [code = Branch 907115486] Future Scheduled 2019 Stool DNA-based [facility]i [facility] Test 00:00:00 colorectal cancer [facility] screening Branch (procedure) [code = 383497671093855] Future Scheduled 2019 Flexible fiberoptic Univ ers[facility] of Test 00:00:00 sigmoidoscopy [facility] (procedure) [code = Branch 93375947] Future Scheduled 2019 Zoster Recombinant Unive rs[facility] of Test 00:00:00 Vaccine (SHINGRIX) [place] [facility] (1 of 2) [code = Branch Zoster Recombinant Vaccine (SHINGRIX) (1 of 2)] Future Scheduled 1985 SARS-CoV-2 [facility] Test 00:00:00 (COVID-19) Vaccine [place] [facility] (1) [code = Branch SARS-CoV-2 (COVID-19) Vaccine (1)] Future Scheduled 1985 SARS-CoV-2 [facility] Test 00:00:00 (COVID-19) Vaccine [place] [facility] (1) [code = Branch SARS-CoV-2 (COVID-19) Vaccine (1)] Future Scheduled 1985 SARS-CoV-2 [facility] Test 00:00:00 (COVID-19) Vaccine [place] [facility] (1) [code = Branch SARS-CoV-2 (COVID-19) Vaccine (1)] Encounters Start End Encounter Admission Attending Care Care Encounter Source Date/Time Date/Time Type Type Clinicians Facility Department ID 2020-12-14 2020-12-14 [place] [id number] 09:56:34 23:59:00 Encounter Lilibeth Lewis [id number] [place] [id number] [place] [id number] 2020-12-04 2020[id number] 08:37:58 08:52:58 ne Visit Lilibeth Lewis [id number] [place] [id number] [facility] [id number] [address] 2016-05-17 2016-05-17 Outpatient KATHY Zuleta PREETI [id number] 15:36:00 18:01:00 Karey 05 Nancie Otilia 2016-05-17 2016-05-[address] [id number] 15:36:00 18:01:00 Karey 05 Nancie Bingham 2016-05-05 2016-05-[address] [facility] [id number] 16:51:00 18:35:00 , [place] 2016-05-05 2016-05-[address] [facility] [id number] 16:51:00 18:35:00 , [place] 2016-04-25 2016-04-25 [place] [id number] 18:01:00 21:08:00 Agustin Papa 2016-04-25 2016-04-25 [place] [id number] 18:01:00 21:08:00 Agustin Papa 2016-03-05 2016-03-05 [facility] [id number] 06:59:00 09:36:00 Rachel Melodie 2016-03-05 2016-03-05 Outpatient Lc [facility] [id number] 06:59:00 09:36:00 Rachel Melodie 2016-03-02 2016-03-02 [id number] 05:00:00 09:17:00 Fei Javed 2016-03-02 2016-03-02 [id number] 05:00:00 09:17:00 Fei Javed 2016-02-17 2016-02-19 [facility] [id number] 05:13:00 20:44:00 Osmar 00 Esau 2016-02-17 2016-02-19 Outpatient Alejandra [facility] [id number] 05:13:00 20:44:00 Osmar 00 [place] Results Test Description Test Time Test Comments Results Result Sourc e Comments LAB ONLY COVID 2020-09-21 COVID DMT [facility] 1 InterpretationInte [facility] 21:58:56 rpretation/Recomme Branch ndations: Molecular NAAT Tests for Active Infection with the SARS-CoV-2 Virus: The patient has currently tested negative for the SARS-CoV-2 virus that causes COVID-19 illness. This most likely indicates that the patient does not have an active infection with the SARS-CoV-2 virus. However, infection is not completely ruled out as the false negative rate for molecular NAAT testing using a nasopharyngeal sample can be up to 30%, mostly dependent on the timing of sample collection in relation to illness onset and any deficiencies in sampling techniques. If the patient has symptoms concerning for COVID-19 illness, a repeat NAAT test (PCR, Rapid ID Now, etc.) should be performed, at which time the SARS-CoV-2 virus - if present - may have reached a detectable viral load (usually peaking by the end of the first week of symptoms). Tests for IgM and/or IgG Antibodies to the SARS-CoV-2 Virus: If the patient develops COVID-19 illness in the future, testing for IgM and IgG antibodies approximately 3 weeks after illness onset will likely indicate if the patient has produced antibodies to the SARS-CoV-2 virus. However, some patients may take longer to develop detectable antibodies, while some patients who were infected with SARS-CoV-2 may never develop antibodies. While antibodies to SARS-CoV-2 may provide some degree of immunity, at this time the strength and duration of the antibody response is unknown. Interpretation Result Comments:These interpretation comments are based upon all COVID-19 testing the patient has had at [facility], including molecular NAAT testing (more commonly known as PCR testing and Rapid ID Now testing) and antibody testing. It does not take into account any testing that a patient has had outside of the [facility] medical record. [facility] LABORATORY SERVICESCOVID NavtgqoBXHD-HmA-5 Rapid ID NOW (no units) Date Value 09/28/2020 Not Detected 08/25/2020 Not Detected 02/09/2020 Not Detected 10/26/2019 Not Detected 10/11/2019 Not Detected [facility]OR[facility]ORY SERVICES POCT GLUCOSE (AUTOMATED) 2020-09-29 16:55:33 Test Item Value Reference Range Interpretation Comme nts POCT GLU (test code = 0534805152) 137 mg/dL 70-110 H Lab Interpretation (test code = 51758-7) Abnormal [facility] Metabolic Panel (NA, K, CL, CO2, GLUCOSE, BUN, CREATININE, CA)2020-09-29 10:29:40 Test Item Value Reference Range Interpretation Comments NA (test code = 138 mmol/L 135-145 9039644331) K (test code = 3.5 mmol/L 3.5-5.0 3585351335) CL (test code = 101 mmol/L 98-108 3917362659) CO2 TOTAL (test code = 31 mmol/L 23-31 7240881083) AGAP (test code = 6 2-16 6268075052) BUN (test code = 19 mg/dL 7-23 6450682541) GLUCOSE (test code = 133 mg/dL 70-110 H 7152554998) CREATININE (test code = 1.30 mg/dL 0.60-1.25 H 5067390213) CALCIUM (test code = 9.6 mg/dL 8.6-10.6 5408232545) eGFR (test code = 58.2 mL/min/1.73m2 2133192622) SUNIL (test code = SUNIL) Association of Glomerular Filtration Rate (GFR) and Staging of Kidney Disease* + --+ --+ ------+| GFR (mL/min/1.73 m2) | With Kidney Damage | Without Kidney Damage+ --------+ --------+ +| >90 | Stage one | Normal + --+ --+ ------+| 60-89 | Stage two | Decreased GFR + --+ --+ ------+| 30-59 | Stage three | Stage three + --+ --+ ------+| 15-29 | Stage four | Stage four + --+ --+ ------+| <15 (or dialysis) | Stage five | Stage five + --+ --+ ------+ *Each stage assumes the associated GFR level has been in effect for at least three months. Stages 1 to 5, with or without kidney disease, indicate chronic kidney disease. Notes: Determination of stages one and two (with eGFR >59mL/min/1.73 m2) requires estimation of kidney damage for at least three months as defined by structural or functional abnormalities of the kidney, manifested by either:Pathological abnormalities or Markers of kidney damage (including abnormalities in the composition of the blood or urine or abnormalities in imaging tests). Lab Interpretation Abnormal (test code = 72703-7) [facility] with Hpfhqeeorclc2591-19-09 10:18:20 Test Item Value Reference Range Interpretation Comments WBC (test code = 10.77 See_Comment H [Automated 6690-2) message] The sy stem which generated this result transmitted reference range : 4.20 - 10.70 10*3/?L. The reference range was not used to interpret this result as normal/abnormal . RBC (test code = 4.62 See_Comment [Automated 789-8) message] The sy stem which generated this result transmitted reference range : 4.26 - 5.52 10*6/?L. The reference range was not used to interpret this result as normal/abnormal . HGB (test code = 11.1 g/dL 12.2-16.4 L 718-7) HCT (test code = 35.5 % 38.4-49.3 L 4544-3) MCV (test code = 76.8 fL 81.7-95.6 L 787-2) MCH (test code = 24.0 pg 26.1-32.7 L 785-6) MCHC (test code = 31.3 g/dL 31.2-35.0 786-4) RDW-SD (test code = 43.2 fL 38.5-51.6 56920-7) RDW-CV (test code = 15.6 % 12.1-15.4 H 788-0) PLT (test code = 307 See_Comment [Automated 777-3) message] The sy stem which generated this result transmitted reference range : 150 - 328 10*3/ ?L. The reference r shashi was not used to interpret this result as normal/abnormal . MPV (test code = 9.5 fL 9.8-13.0 L 29142-4) NRBC/100 WBC (test 0.0 See_Comment [Automat ed code = 3766163666) message] The system which generated this result transmitted reference range : 0.0 - 10.0 /100 WBCs. The refer ence range was not u sed to interpret th is result as normal/abnormal . NRBC x10^3 (test code <0.01 See_Comment [Auto mated = 9080505122) message] The s ystem which generated this result transmitted reference range : 10*3/?L. The reference range was not used to interpret this result as normal/abnormal . GRAN MAT (NEUT) % 73.5 % (test code = 770-8) IMM GRAN % (test code 0.60 % = 6924945461) LYMPH % (test code = 18.2 % 736-9) MONO % (test code = 6.0 % 5905-5) EOS % (test code = 1.3 % 713-8) BASO % (test code = 0.4 % 706-2) GRAN MAT x10^3(ANC) 7.91 10*3/uL 1.99-6.95 H (test code = 6225768245) IMM GRAN x10^3 (test 0.07 10*3/uL 0.00-0.06 H code = 8890010315) LYMPH x10^3 (test code 1.96 10*3/uL 1.09-3.23 = 731-0) MONO x10^3 (test code 0.65 10*3/uL 0.36-1.02 = 742-7) EOS x10^3 (test code = 0.14 10*3/uL 0.06-0.53 711-2) BASO x10^3 (test code 0.04 10*3/uL 0.01-0.09 = 704-7) Lab Interpretation Abnormal (test code = 02300-9) [id number] 08:42:16 Test Item Value Reference Range Interpretation Comments TROPONIN I (test 0.002 ng/mL See_Comment [Automated code = 6613180620) message] The system which generated this result transmitted reference range : <=0.034. The reference range was not used to interpret this result as normal/abnormal . SUNIL (test code = Equal or Less than SUNIL) 0.034 ng/ml---Normal Note: Cardiac troponin begins to rise 3-4 [...] results relative to patient's use of biotin. Lab Interpretation Normal (test code = 18270-6) [facility]YCOSYL[facility] HEMOGLOBIN (A1C)2020-09-28 21:05:41 Test Item Value Reference Range Interpretation Comments HGB A1C (test code = 7.7 % 4.0-6.0 H 4548-4) SUNIL (test code = SUNIL) %A1C (NGSP) Interpretation (ADA)4.8-5.6 Normal or (Non-Diabetic Range)5.7-6.4 Increased Risk (Pre-Diabetic)>6.5 Diabetes Indicated Lab Interpretation Abnormal (test code = 66604-5) [facility] 1 [id number] 19:05:04[facility], Radiant Results Inft User - 09/28/2020 2:06 PM CDTHISTORY: Chest pain.TECHNIQUE: Portable AP erect view of the chest is obtained. Comparison madewith 08/25/2020 study.FINDINGS: No acute pneumonia.No pneumothorax or pleural effusion orpulmonary congestion detected. Mild cardiomegaly, bipolar permanentpacemaker inserted through left subclavian noted with electrode tips ingood position.CONCLUSIONS: No signs of acute cardiopulmonary disease.[facility] Station[facility]-TERMINAL [id number] 19:03:08 Test Item Value Reference Range Interpretation Comments NT-proBNP (test code 40 pg/mL See_Comment [Autom ated = 5689958417) message] The system which generated this result transmitted reference range : <=125. The reference range was not used to interpret this result as normal/abnormal . SUNIL (test code = SUNIL) Biotin has been reported to cause a negative bias, interpret results relative to patient's use of biotin. Lab Interpretation Normal (test code = 05357-9) [facility]OVID[facility] (ID NOW RAPID TESTING)2020-09-28 19:02:12 Test Item Value Reference Range Interpretation Comments SARS-CoV-2 Rapid ID NOW Not Detected Not Detected (test code = 42948-4) SUNIL (test code = SUNIL) ID NOW COVID-19 Assay is an isothermal nucleic acid amplification test intended for the qualitative detection of nucleic acid from SARS-CoV-2 viral RNA in nasopharyngeal ([employer]) specimens. It is used under Emergency Use Authorization (EUA) by FDA. The limit of detection (LOD) of the assay is 125 Genome Equivalents/mL. A positive result is indicative of the presence of SARS-CoV-2 RNA. Clinical correlation with patient history and other diagnostic information is necessary to determine patient infection status. A negative (Not Detected) result does not preclude SARS-CoV-2 infection. In patients with clinical symptoms and other tests that are consistent with SARS-CoV-2 infection, negative results should be treated as presumptive negative and a new specimen should be tested with alternative PCR molecular test. Invalid: Please collect a new specimen for repeat patient testing if clinically indicated. Lab Interpretation Normal (test code = 26749-6) [facility] StationaPTT2021-04-08 19:01:31 Test Item Value Reference Range Interpretation Comments APTT Patient (test 44 See_Comment H [Automat ed code = 3173-2) message] The system which generated this result transmitted reference range : 23 - 38 Seconds . The reference range was not used to interpr et this result as normal/abnormal . SUNIL (test code = SUNIL) The [facility] patient population mean normal value for aPTT is 30 seconds. Lab Interpretation Abnormal (test code = 60445-0) [facility] StationHep[facility] Function Panel (ALB, T.PRO, BILI T, BU/BC, ALT, AST, ALK PHOS)2020-09-28 18:54:28 Test Item Value Reference Range Interpretation Comments TOTAL BILI (test code = 6733923091) 0.6 mg/dL 0.1-1.1 BILI UNCON (test code = 9280911937) 0.3 mg/dL 0.1-1.1 BILI CONJ (test code = 8482272810) 0.0 mg/dL 0.0-0.3 T PROTEIN (test code = 3245815020) 7.5 g/dL 6.3-8.2 ALBUMIN (test code = 4475933078) 4.1 g/dL 3.5-5.0 ALK PHOS (test code = 8294323649) 141 U/L 34-122 H ALTv (test code = 1742-6) 41 U/L 5-50 AST(SGOT) (test code = 6988795145) 36 U/L 13-40 Lab Interpretation (test code = Abnormal 86064-7) [facility] StationLipase [id number] 18:54:27 Test Item Value Reference Range Interpretation Comments LIPASE (test code = 3650430374) 45 U/L 0-220 Lab Interpretation (test code = Normal 81628-5) [facility] StationPROCALCITONIN2021-03-06 09:50:00 Test Item Value Reference Range Interpretation Comments Procalcitonin (test 0.27 ng/mL <0.07 H code = 2098937215) SUNIL (test code = SUNIL) INTERPRETATION OF PROCALCITONIN RESULTS IN ADULTS >= 18 YEARS OF AGE Initiation and discontinuation of antibiotics on patients with suspected or confirmed Lower Respiratory Tract Infection in Adults >= 18 years of age. + +-------- --------+ + -----+|Procalcitonin |Interpretation |Antibiotic |Considerations |ng/mL | |recommendation | + +-------- --------+ + -----+| <0.1 | Bacterial | Strongly | | | infection very | discouraged | Overruling: | | unlikely | | ? Clinically unstable + +-------- --------+ + ? High risk for adverse | <0.25 | Bacterial | Discouraged | outcome | | infection | | ? SEE IMPORTANT NOTE | | unlikely | | + +-------- --------+ + -----+| >=0.25 | Bacterial | Encouraged | | | infection | | | | likely | | Consider treatment failure + +-------- --------+ + if levels does not decrease | >0.5 | Bacterial | Strongly | appropriately | | infection very | encouraged | | | likely | | + +-------- --------+ + -----+ Discontinuation of antibiotics in high-acuity patients with suspected or confirmed sepsis in Adults >= 18 years of age. + +-------- --------+ + -----+|Procalcitonin |Interpretation |Antibiotic |Considerations |ng/mL | |recommendation | + +-------- --------+ + -----+| <0.25 | Bacterial | Strongly | | | infection very | discouraged | Overruling: | | unlikely | | ? Clinically unstable + +-------- --------+ + ? High risk for adverse | <0.5 or drop | Bacterial | Discouraged | outcome | >80% from | infection | | ? SEE IMPORTANT NOTE | highest PCT | unlikely | | | level | | | + +------- ---------+ -+ ------+| >=0.5 | Bacterial | Encouraged | | | infection | | | | likely | | Consider treatment failure + +-------- --------+ + if levels does not decrease | >1.0 | Bacterial | Strongly | appropriately | | infection very | encouraged | | | likely | | + +-------- --------+ + -----+ Percentage of drop of Procalcitonin calculation for Discontinuation of antibiotics in high-acuity patients with suspected or confirmed sepsis in Adults >= 18 years of age. Procalcitonin highest{}-Procalcitonin current{}Delta Procalcitonin = x100% Procalcitonin current {} IMPORTANT NOTE: Procalcitonin may be elevated without bacterial infection by physiologic stress related to trauma, davies, chronic dialysis, metastatic cancer, surgery in the past seven days, malaria, some fungal infections, and some forms of vasculitis. The interpretation algorithm may not apply to patients with immunosuppression (equivalent of >10 mg of prednisone daily), HIV with CD4 cell count < 350 cells/mm3, active malignancy on systemic chemotherapy, solid organ transplant or hematopoietic stem cell transplantation, or hospital acquired pneumonia. Additionally, some clinical trials of procalcitonin have excluded patients with shock requiring vasopressor use, acute respiratory failure requiring mechanical ventilation, or those with known lung abscess/empyema. For further information please refer to:[email or web address] Lab Interpretation Abnormal (test code = 24547-2) [facility] StationUS ABDOMEN [id number] 00:54:00 Impression: 1. Hepatosplenomegaly and hepatic steatosis.2. The pancreas is not adequately visualized.3. No acute abnormalities evident. RL: 460 End of Report Electronically signed by Perez Arthur 08/25/2020 6:54 PMLovelace Rehabilitation HospitalDaniella Results Inft User - 08/25/2020 6:55 PM CSTOrdering Physician: HERBERT JAVEDHistory: Elevated liver enzymesTechnique: Abdominal ultrasoundComparison: NoneFindings: The liver is enlarged, with a craniocaudad dimension of 22 cm. Hepaticechoes are diffusely increased and there is limited sound penetration ofthe liver, most compatible with fatty infiltration. Focal subcapsularsparing is seen adjacent to the gallbladder fossa. Flow is hepatopetal. Nobiliary dilata tion is evident. No gallstones are evident. There is nogallbladder wall thickening or pericholecystic fluid. A negativesonographic Santo's sign is reported by the technologist. The pancreas isobscuredby bowel gas. The spleen is mildly enlarged, with a craniocaudaddimension of approximately a few cent imeters. The spleen is otherwiseunremarkable in appearance. The visualized portions of the right kidney areunremarkable. The visualized portions of the inferior vena cava and aortaare unremarkable.IMPRESSIONImpression:1. Hepatosplenomegaly and hepatic steatosis.2. The pancreas is not adequately visualized.3. No acute abnormalities evident.RL: 460End of Report [facility] AreaLIPID PANEL (71368)(TOTAL CHOLESTEROL, TRIGLYCERIDES, HDL)2020-08-25 22:53:00 Test Item Value Reference Range Interpretation Comments CHOL (test code = 165 mg/dL 120-200 [id number]) HDL (test code = 29 mg/dL >40 L [id number]) HDLC RATIO (test code = 5.7 See_Comment H [Au tomated message] [id number]) The system [employer] generated this result transmit vale reference range : <=5.0. The refe rence range was not u sed to interpret th is result as normal/abnormal . TRIG (test code = 233 mg/dL 30-170 H [id number]) LDL CHOL (test code = 89 mg/dL See_Comment [Auto mated message] 49626-3) The system [employer] generated this result transmit vale reference range : <=160. The refe rence range was not u sed to interpret th is result as normal/abnormal . VLDL (test code = 47 mg/dL 5-60 [id number]) Lab Interpretation (test Abnormal code = 45233-5) [facility] Station[facility]throm[facility] Time (PT) / [id number] 12:32:00 Test Item Value Reference Range Interpretation Comments PROTIME PATIENT (test 19.6 See_Comment H [Auto mated message] code = 5964-2) The system [facility] generated this result transmitted ref erence range: 12.0 - 1 4.7 Seconds. The reference range was not used to int erpret this result as normal/abnormal . INR (test code = 6301-6) 1.7 Nor mal INR <1.1; Warfarin Therap eutic range 2.0 to 3. 0 or 2.5 to 3.5, dep ending upon the indica tions. Lab Interpretation (test Abnormal code = 67617-2) [facility] StationMAGNESIUM2021-02-25 18:52:00 Test Item Value Reference Range Interpretation Comments MAGNESIUM (test code = 3969530201) 2.3 mg/dL 1.7-2.4 Lab Interpretation (test code = Normal 08407-0) [facility] StationLUPUS ANTICOAGULANT [id number] 12:28:00 Test Item Value Reference Range Interpretation [...] iously reported result : 1.05 Edited by: [facility] E on 07/06/18:613373 1510: SILICA C LOTTING previously repo rted as: 1.05 ARTERIAL THROMBOPHILIA [id number] 12:28:00 Test Item Value Reference Interpretation Comments Range PROTHROMBIN 3 NO MUTATION () PROTHROMBIN (F ACTOR II) UNTRANSLATED DETECTED 68971H>A MUTATI ON (test code = INTERPRETATION: This AH3RPKY) individual is n egative (normal) for th e [id number] in the Prothrombin/Fac tor II gene. Increased risko f thrombophilia c an be caused by a variety of genetic andnon-genetic factors not screened for th is assay. Laboratory test ing supervised and results guerrero Knox, Ph.D., DABMG, H CLD, CGMB. MUTATION ANALYS IS:The C68858W mutation [IQ354929.1:g.2 1538G>A (c.*97G>A)] int he Prothrombin/Fac tor II gene is the second most commoninherited risk factor for thrombosis occuring inapproximately 2% of Caucasians. Pre sence of the mutation isasso ciated with an elevation of pr othrombin levels to about 30% above normal in heter ozygotes and 70% above olivia l inhomozygotes. The K19993S mutation is det ected bypolymerase ch ain [...] performancechar acteristics have been deter mined by [id number] Leonard lazo. It has not beencleared or approved by the FDA. Thi s assay has beenvalidated p ursuant to the CLIA regulation s and is used forclinical pur poses. Health care providers, please contact your marium [employer] ' genetic counselor or flex lind [phone]( [phone]) for assistance with interpretation of theseresults. P erformed by: Ryppleallen alejandra/Kirstie [facility] [place] [address] ACTIVATED PROT C 3.09 RATIO 2.31-5.00 Ratios [...] supervised and results guerrero Cardoza , Ph.D., FACMG, CGMB. MU TATION ANALYSIS:The Fa ctor v Leiden (R560Q) mutatio n [NM 032109.2: c.160 1G>A(p.R534Q)] in the Factor V gene [...] performancechar acteristics have been deter mined by [id number] Leonard lazo. It has not beencleared or approved by the FDA. Thi s assay has beenvalidated p ursuant to the CLIA regulation s and is used forclinical pur poses. Health care providers, please contact your [facility] [employer] ' genetic counselor or [facility] [phone]( [phone]) for assistance with interpretation of theseresults. P erformed by: [facility] justyn/Kirstie [facility] [place] [address] PROTEIN S FREE 56 % 68-126 L [...] in cluded into the APS criteri a. SHDC-9-MGPFT I 0.8 SMU 0.0-20.0 IGM (test code = GPIIGM) IVWF-4-PYCVC I 0.0 SGU 0.0-20.0 IGG (test code = GPIIGG) XURD-9-ZGZHW I 0.5 AHMET 0.0-20.0 The Antiphosp holipid [...] 0.000-0.747 H CRP (test code = CRPHS) [id number] 12:28:00 Test Item Value Reference Range Interpretation Comments FIBRINOGEN (test 640 MG/DL 160-450 H Excess admi nistration of code = FIB) anticoagulants and/or FibrinDegradati on Products may af fect Fibrinogen valu e. FACTOR [id number] 12:28:00 Test Item Value Reference Range Interpretation [...] vels are not clinicallysigni ficant. PROTEIN C [id number] 12:28:00 Test Item Value Reference Range Interpretation [...] levels of Prote in C. PROTEIN C [id number] 12:28:00 Test Item Value Reference Range Interpretation Comments PROTEIN C ANTIGENIC 71 % 70-140 Decrease d levels of (test code = PROTCAG) Protei n C Antigen may be found incongeni hetal deficiency, jerome atment with oral anticoagulants, liver disease, D.I.C. and post surgery. Perfor med by: [facility] [address] PROTEIN S [id number] 12:28:00 Test Item Value Reference Range Interpretation Comments PROTEIN S TOTAL 68 % 70-140 L Performed by : [facility] (test code = Diagn[facility] PROTSTOT) [place] [address] PROTEIN S FUNC 70 % 74-148 L [...] anincreased thrombotic risk . MTHF REDUCTASE (PCR) [id number] 12:28:00 Test Item Value Reference Range Interpretation Comments MTHF REDUCTASE (PCR) 677 TEST NOT PERFORMED (test code = MTHFR 677) LUPUS ANTICOAGULANT [id number] 11:48:00 Test Item Value Reference Range Interpretation [...] : 1.05 Edited by: ADDY Zhang on 07/06/18:776800 1510: SILICA C LOTTING previously repo rted as: 1.05 ARTERIAL THROMBOPHILIA [id number] 11:48:00 Test Item Value Reference Interpretation Comments Range PROTHROMBIN 3 NO MUTATION () PROTHROMBIN (F ACTOR II) UNTRANSLATED DETECTED 26819G>A MUTATI ON (test code = INTERPRETATION: This ZZ3SRHB) individual is n egative (normal) for th e Q24019Bffhvuglr in the Prothrombin/Fac tor II gene. Increased risko f thrombophilia c an be caused by a variety of genetic andnon-genetic factors not screened for th is assay. Laboratory test ing supervised and results mon gurdeepred Peg Knox, Ph.D., DABMG, H CLD, CGMB. MUTATION ANALYS IS:The L14039P mutation [EJ151907.1:g.2 1538G>A (c.*97G>A)] int he Prothrombin/Fac tor II gene is the second most commoninherited risk factor for thrombosis occuring inapproximately 2% of Caucasians. Pre sence of the mutation isasso ciated with an elevation of pr othrombin levels to about 30% above normal in heter ozygotes and 70% above olivia l inhomozygotes. The P27949C mutation is det ected bypolymerase ch ain [...] performancechar acteristics have been deter mined by [id number] Leonard lazo. It has not beencleared or approved by the FDA. Thi s assay has beenvalidated p ursuant to the CLIA regulation s and is used forclinical pur poses. Health care providers, please contact your marium [employer] ' genetic counselor or flex lind [phone]( [phone]) for assistance with interpretation of theseresults. P erformed by: [facility] just[facility]/Kirstie [facility] jose [place], [place] [address] ACTIVATED PROT C 3.09 RATIO 2.31-5.00 Ratios [...] supervised and results guerrero Cardoza , Ph.D., [facility], [facility]. MU TATION ANALYSIS:The Fa ctor v Leiden (R560Q) mutatio n [NM 420138.2: c.160 1G>A(p.R534Q)] in the Factor V gene is one of the most com moncauses of inherited throm bophilia. This mutation causes resistance to degradation of the activated protein C (APC) .The Factor V Leiden (R506Q) mutation is detected bypoly merase chain reaction (PCR) and flourescent probehybridizat ion to the targeted region , followed by meltingcurve an alysis with a real time PCR s [facility]. Although rare,f alse positive or false negati ve results may occur. Allresul ts should be interpreted in the context of clinicalfinding s, relevant history, and ot her laboratory data. This test was developed and its analyti marium performancechar acteristics have been deter mined by [id number] Leonard lazo. It has not beencleared or approved by the FDA. Thi s assay has beenvalidated p ursuant to the CLIA regulation s and is used forclinical pur poses. Health care providers, please contact your filipe causey [employer] ' genetic counselor or flex lind [phone]( [phone]) for assistance with interpretation of theseresults. P erformed by: Khang alejandra/Kirstie [facility] [place] [address] PROTEIN S FREE 56 % 68-126 L [...] in cluded into the APS criteri a. OTVS-7-URWQQ I 0.8 SMU 0.0-20.0 IGM (test code = GPIIGM) QNIN-4-GDONB I 0.0 SGU 0.0-20.0 IGG (test code = GPIIGG) QYEV-0-CTLNN I 0.5 AHMET 0.0-20.0 The Antiphosp holipid [...] 0.000-0.747 H CRP (test code = CRPHS) [id number] 11:48:00 Test Item Value Reference Range Interpretation Comments FIBRINOGEN (test 640 MG/DL 160-450 H Excess admi nistration of code = FIB) anticoagulants and/or FibrinDegradati on Products may af fect Fibrinogen valu e. FACTOR [id number] 11:48:00 Test Item Value Reference Range Interpretation [...] vels are not clinicallysigni ficant. PROTEIN C [id number] 11:48:00 Test Item Value Reference Range Interpretation [...] levels of Prote in C. PROTEIN C [id number] 11:48:00 Test Item Value Reference Range Interpretation Comments PROTEIN C ANTIGENIC 71 % 70-140 Decrease d levels of (test code = PROTCAG) Protei n C Antigen may be found incongeni hetal deficiency, jerome atment with oral anticoagulants, liver disease, D.I.C. and post surgery. Perfor med by: [facility] [address] PROTEIN S [id number] 11:48:00 Test Item Value Reference Range Interpretation Comments PROTEIN S TOTAL 68 % 70-140 L Performed by : [facility] (test code = Diagnostics/[facility] PROTSTOT) [place] [address] PROTEIN S FUNC 70 % 74-148 L [...] anincreased thrombotic risk . MTHF REDUCTASE (PCR) [id number] 11:48:00 Test Item Value Reference Range Interpretation Comments MTHF REDUCTASE (PCR) 677 (test code = MTHFR 677) LUPUS ANTICOAGULANT [id number] 11:04:00 Test Item Value Reference Range Interpretation [...] : 1.05 Edited by: ADDY Zhang on 07/06/18:889363 1510: SILICA C LOTTING previously repo rted as: 1.05 ARTERIAL THROMBOPHILIA [id number] 11:04:00 Test Item Value Reference Interpretation Comments Range PROTHROMBIN 3 NO MUTATION () PROTHROMBIN (F ACTOR II) UNTRANSLATED DETECTED 63001G>A MUTATI ON (test code = INTERPRETATION: This UC1HROD) individual is n egative (normal) for th e L63334Bxfebjltp in the Prothrombin/Fac tor II gene. Increased risko f thrombophilia c an be caused by a variety of genetic andnon-genetic factors not screened for th is assay. Laboratory test ing supervised and results guerrero Knox, Ph.D., DABMG, H CLD, CGMB. MUTATION ANALYS IS:The D33961R mutation [DA852438.1:g.2 1538G>A (c.*97G>A)] int he Prothrombin/Fac tor II gene is the second most commoninherited risk factor for thrombosis occuring inapproximately 2% of Caucasians. Pre sence of the mutation isasso ciated with an elevation of pr othrombin levels to about 30% above normal in heter ozygotes and 70% above olivia l inhomozygotes. The N55680H mutation is det ected bypolymerase ch ain [...] performancechar acteristics have been deter mined by [facility] Leonard lazo. It has not beencleared or approved by the FDA. Thi s assay has beenvalidated p ursuant to the CLIA regulation s and is used forclinical pur poses. Health care providers, please contact your [facility] [employer] ' genetic counselor or flex [phone]( [phone]) for assistance with interpretation of theseresults. P erformed by: [facility] justyn/Kirstie [facility] [place] [address] ACTIVATED PROT C 3.09 RATIO 2.31-5.00 Ratios [...] supervised and results guerrero Cardoza , Ph.D., FAC, [facility]. MU TATION ANALYSIS:The Fa ctor v Leiden (R560Q) mutatio n [NM 446793.2: c.160 1G>A(p.R534Q)] in the Factor V gene [...] performancechar acteristics have been deter mined by [facility] Leonard lazo. It has not beencleared or approved by the FDA. Thi s assay has beenvalidated p ursuant to the CLIA regulation s and is used forclinical pur poses. Health care providers, please contact your [facility] [employer] ' genetic counselor or [facility] [phone]( [phone]) for assistance with interpretation of theseresults. P erformed by: Ryppleallen alejandra/Kirstie [facility] [place] [address] PROTEIN S FREE 56 % 68-126 L [...] in cluded into the APS criteri a. DGPH-7-ZTNBN I SMU 0.0-20.0 IGM (test code = GPIIGM) PELY-0-GKTJZ I SGU 0.0-20.0 IGG (test code = GPIIGG) AYUG-2-NYJFP I 0.5 AHMET 0.0-20.0 The Antiphosp holipid [...] 0.000-0.747 H CRP (test code = CRPHS) [id number] 11:04:00 Test Item Value Reference Range Interpretation Comments FIBRINOGEN (test 640 MG/DL 160-450 H Excess admi nistration of code = FIB) anticoagulants and/or FibrinDegradati on Products may af fect Fibrinogen valu e. FACTOR [id number] 11:04:00 Test Item Value Reference Range Interpretation [...] vels are not clinicallysigni ficant. PROTEIN C [id number] 11:04:00 Test Item Value Reference Range Interpretation [...] levels of Prote in C. PROTEIN C [id number] 11:04:00 Test Item Value Reference Range Interpretation Comments PROTEIN C ANTIGENIC 71 % 70-140 Decrease d levels of (test code = PROTCAG) Protei n C Antigen may be found incongeni hetal deficiency, jerome atment with oral anticoagulants, liver disease, D.I.C. and post surgery. Perfor med by: [facility]/[place] [address] PROTEIN S [id number] 11:04:00 Test Item Value Reference Range Interpretation Comments PROTEIN S TOTAL 68 % 70-140 L Performed by : [facility] (test code = Diagnostics/Misael hols [facility] PROTSTOT) [place] [address] PROTEIN S FUNC 70 % 74-148 L [...] anincreased thrombotic risk . MTHF REDUCTASE (PCR) [id number] 11:04:00 Test Item Value Reference Range Interpretation Comments MTHF REDUCTASE (PCR) 677 (test code = MTHFR 677) LUPUS ANTICOAGULANT [id number] 11:03:00 Test Item Value Reference Range Interpretation [...] iously reported result : 1.05 Edited by: TAYLOR E on 07/06/18:760881 1510: SILICA C LOTTING previously repo rted as: 1.05 ARTERIAL THROMBOPHILIA [id number] 11:03:00 Test Item Value Reference Interpretation Comments Range PROTHROMBIN 3 NO MUTATION () PROTHROMBIN (F ACTOR II) UNTRANSLATED DETECTED 73933G>A MUTATI ON (test code = INTERPRETATION: This MY2QBCS) individual is n egative (normal) for th e I28093Cdtjukpsk in the Prothrombin/Fac tor II gene. Increased risko f thrombophilia c an be caused by a variety of genetic andnon-genetic factors not screened for th is assay. Laboratory test ing supervised and results guerrero Knox, Ph.D., DABMG, H CLD, CGMB. MUTATION ANALYS IS:The V21276N mutation [AV737392.1:g.2 1538G>A (c.*97G>A)] int he Prothrombin/Fac tor II gene is the second most commoninherited risk factor for thrombosis occuring inapproximately 2% of Caucasians. Pre sence of the mutation isasso ciated with an elevation of pr othrombin levels to about 30% above normal in heter ozygotes and 70% above olivia l inhomozygotes. The Y87111F mutation is det ected bypolymerase ch ain [...] performancechar acteristics have been deter mined by [id number] Leoanrd lazo. It has not beencleared or approved by the FDA. Thi s assay has beenvalidated p ursuant to the CLIA regulation s and is used forclinical pur poses. Health care providers, please contact your lo marium [employer] ' genetic counselor or flex lind [phone]( [phone]) for assistance with interpretation of theseresults. P erformed by: [facility] alejandra/Kirstie [facility] [place] [address] ACTIVATED PROT C 3.09 RATIO 2.31-5.00 Ratios [...] supervised and results guerrero Cardoza , Ph.D., [facility], [facility]. MU TATION ANALYSIS:The Fa ctor v Leiden (R560Q) mutatio n [NM 344424.2: c.160 1G>A(p.R534Q)] in the Factor V gene [...] performancechar acteristics have been deter mined by [id number] Leonard lazo. It has not beencleared or approved by the FDA. Thi s assay has beenvalidated p ursuant to the CLIA regulation s and is used forclinical pur poses. Health care providers, please contact your [facility] [employer] ' genetic counselor or flex lind [phone]( [phone]) for assistance with interpretation of theseresults. P erformed by: [facility]/Kirstie [facility] [place] [address] PROTEIN S FREE 56 % 68-126 L [...] in cluded into the APS criteri a. MQNB-2-BUHCB I SMU 0.0-20.0 IGM (test code = GPIIGM) IUQN-2-HKRUY I SGU 0.0-20.0 IGG (test code = GPIIGG) BYDA-8-FHFEO I 0.5 AHMET 0.0-20.0 The Antiphosp holipid [...] 0.000-0.747 H CRP (test code = CRPHS) [id number] 11:03:00 Test Item Value Reference Range Interpretation Comments FIBRINOGEN (test 640 MG/DL 160-450 H Excess admi nistration of code = FIB) anticoagulants and/or FibrinDegradati on Products may af fect Fibrinogen valu e. FACTOR [id number] 11:03:00 Test Item Value Reference Range Interpretation [...] vels are not clinicallysigni ficant. PROTEIN C [id number] 11:03:00 Test Item Value Reference Range Interpretation [...] levels of Prote in C. PROTEIN C [id number] 11:03:00 Test Item Value Reference Range Interpretation Comments PROTEIN C ANTIGENIC 71 % 70-140 Decrease d levels of (test code = PROTCAG) Protei n C Antigen may be found incongeni hetal deficiency, jerome atment with oral anticoagulants, liver disease, D.I.C. and post surgery. Perfor med by: [facility] [address] PROTEIN S [id number] 11:03:00 Test Item Value Reference Range Interpretation [...] anincreased thrombotic risk . MTHF REDUCTASE (PCR) [id number] 11:03:00 Test Item Value Reference Range Interpretation Comments MTHF REDUCTASE (PCR) 677 (test code = MTHFR 677) LUPUS ANTICOAGULANT [id number] 21:21:00 Test Item Value Reference Range Interpretation [...] : 1.05 Edited by: ADDY Zhang on 07/06/18:290629 1510: SILICA C LOTTING previously repo rted as: 1.05 ARTERIAL THROMBOPHILIA [id number] 21:21:00 Test Item Value Reference Interpretation Comments Range PROTHROMBIN 3 UNTRANSLATED (test code = ME2YTYX) ACTIVATED PROT C 3.09 RATIO 2.31-5.00 Ratios [...] been included i nto the APS criteria. OARB-2-RUGCA I SMU 0.0-20.0 IGM (test code = GPIIGM) MFSL-7-ZVKPB I SGU 0.0-20.0 IGG (test code = GPIIGG) IHCT-6-BSMXV I 0.5 AHMET 0.0-20.0 The Antiphosp holipid [...] 0.000-0.747 H CRP (test code = CRPHS) [id number] 21:21:00 Test Item Value Reference Range Interpretation Comments FIBRINOGEN (test 640 MG/DL 160-450 H Excess admi nistration of code = FIB) anticoagulants and/or FibrinDegradati on Products may af fect Fibrinogen valu e. FACTOR [id number] 21:21:00 Test Item Value Reference Range Interpretation [...] vels are not clinicallysigni ficant. PROTEIN C [id number] 21:21:00 Test Item Value Reference Range Interpretation [...] levels of Prote in C. PROTEIN C [id number] 21:21:00 Test Item Value Reference Range Interpretation Comments PROTEIN C ANTIGENIC 71 % 70-140 Decrease d levels of (test code = PROTCAG) Protei n C Antigen may be found incongeni hetal deficiency, jerome atment with oral anticoagulants, liver disease, D.I.C. and post surgery. Perfor med by: [facility]/[place] [address] PROTEIN S [id number] 21:21:00 Test Item Value Reference Range Interpretation [...] anincreased thrombotic risk . MTHF REDUCTASE (PCR) [id number] 21:21:00 Test Item Value Reference Range Interpretation Comments MTHF REDUCTASE (PCR) 677 (test code = MTHFR 677) ANTIPHOSPHATIDYL SERINE [id number] 16:18:00 Test Item Value Reference Range Interpretation Comments APS ABS IGG (test 2 GPS IgG 0-11 Performed At: [facility] code = APSIGG) [place] [address] [address] [place], [place] [id number] ra Lynne PHILLIP Ph:[phone] APS ABS IGM (test 5 MPS IgM 0-25 code = APSIGM) APS ABS IGA (test 1 APS IgA 0-20 code = APSIGA) LUPUS ANTICOAGULANT [id number] 14:43:00 Test Item Value Reference Range Interpretation [...] Sec PTT) Effective 07/21/2013 PTT 1:1 MIX FIELD ADVISOR (test SECS code = PTTMIX2) PTT 1:3 [...] iously reported result : 1.05 Edited by: [facility] E on 07/06/18:485399 1510: SILICA C LOTTING previously repo rted as: 1.05 ARTERIAL THROMBOPHILIA [id number] 14:43:00 Test Item Value Reference Interpretation Comments Range PROTHROMBIN 3 UNTRANSLATED (test code = RJ4RRYD) ACTIVATED PROT C 3.09 RATIO 2.31-5.00 Ratios [...] been included i nto the APS criteria. WOSW-2-WLKWR I SMU 0.0-20.0 IGM (test code = GPIIGM) DAUT-9-OERGT I SGU 0.0-20.0 IGG (test code = GPIIGG) YUYJ-1-VNBJZ I 0.5 AHMET 0.0-20.0 The Antiphosp holipid [...] 0.000-0.747 H CRP (test code = CRPHS) [id number] 14:43:00 Test Item Value Reference Range Interpretation Comments FIBRINOGEN (test 640 MG/DL 160-450 H Excess admi nistration of code = FIB) anticoagulants and/or FibrinDegradati on Products may af fect Fibrinogen valu e. FACTOR [id number] 14:43:00 Test Item Value Reference Range Interpretation [...] vels are not clinicallysigni ficant. PROTEIN C [id number] 14:43:00 Test Item Value Reference Range Interpretation [...] levels of Prote in C. PROTEIN C [id number] 14:43:00 Test Item Value Reference Range Interpretation Comments PROTEIN C ANTIGENIC 71 % 70-140 Decrease d levels of (test code = PROTCAG) Protei n C Antigen may be found incongeni hetal deficiency, jerome atment with oral anticoagulants, liver disease, D.I.C. and post surgery. Perfor med by: [facility] [place] [address] PROTEIN S [id number] 14:43:00 Test Item Value Reference Range Interpretation [...] anincreased thrombotic risk . MTHF REDUCTASE (PCR) [id number] 14:43:00 Test Item Value Reference Range Interpretation Comments MTHF REDUCTASE (PCR) 677 (test code = MTHFR 677) PROTEIN C [id number] 14:31:00 Test Item Value Reference Range Interpretation [...] levels of Prote in C. PROTEIN C [id number] 14:31:00 Test Item Value Reference Range Interpretation Comments PROTEIN C ANTIGENIC 71 % 70-140 Decrease d levels of (test code = PROTCAG) Protei n C Antigen may be found incongeni hetal deficiency, jerome atment with oral anticoagulants, liver disease, D.I.C. and post surgery. Perfor med by: [facility] [address] PROTEIN S [id number] 14:31:00 Test Item Value Reference Range Interpretation [...] anincreased thrombotic risk . MTHF REDUCTASE (PCR) [id number] 14:31:00 Test Item Value Reference Range Interpretation Comments MTHF REDUCTASE (PCR) 677 (test code = MTHFR 677) LUPUS ANTICOAGULANT [id number] 14:31:00 Test Item Value Reference Range Interpretation Comments PROTHROMBIN TIME 17.8 SECONDS 9.3-12.9 H PATIENT (test code = PTP) INTERNATIONAL NORMAL 1.6 0.8-1.2 H TARGET RATIO (test code = INR BY IN DICATION INR) Indication INR1. Prophyl axis of venous thrombos is 2.0 - 3. 0 (orthopedic lillian renny), Prophylaxis of venous thrombos is (other than hig h-risk surgery), Amg tment of Deep Vein Thrombosis/Pulm onary Embolism, [...] Sec PTT) Effective 07/21/2013 PTT 1:1 MIX FIELD ADVISOR (test SECS code = PTTMIX2) PTT 1:3 [...] iously reported result : 1.05 Edited by: [facility] on 07/06/18:114783 1510: SILICA C LOTTING previously repo rted as: 1.05 ARTERIAL THROMBOPHILIA [id number] 14:31:00 Test Item Value Reference Interpretation Comments Range PROTHROMBIN 3 UNTRANSLATED (test code = YV2PCSL) ACTIVATED PROT C 3.09 RATIO 2.31-5.00 Ratios [...] been included i nto the APS criteria. QMRC-1-BHTYE I SMU <20 IGM (test code = GPIIGM) KWFK-2-EBPLY I UNITS <20 IGG (test code = GPIIGG) VAEJ-4-SWRFK I 0.0-20.0 IGA (test code = GPIIGA) HOMOCYSTEINE TEST NOT 3.2-10.7 (test code = PERFORMED HOMOCY) umol/L HIGH SENSITIVITY mg/dl 0.000-0.747 H CRP (test code = CRPHS) [id number] 14:31:00 Test Item Value Reference Range Interpretation Comments FIBRINOGEN (test 640 MG/DL 160-450 H Excess admi nistration of code = FIB) anticoagulants and/or FibrinDegradati on Products may af fect Fibrinogen valu e. FACTOR [id number] 14:31:00 Test Item Value Reference Range Interpretation [...] Antithrombin le vels are not clinicallysigni ficant. URINE AND HFLLL8813-39-58 23:16:00Negative (05/17/16 5:16 PM)[facility] URINE AND TQOBG2056-48-53 23:16:00Negative *NA*(05/17/16 5:16 PM)[facility] NSUUL2340-52-28 23:16:00Negative (05/17/16 5:16 PM)[facility] EUYHR8879-15-65 23:16:000.2[facility] STOOL 2016-05-17 23:16:00Clear (05/17/16 5:16 PM)[facility] STOOL 2016-05-17 23:16:00Negative (05/17/16 5:16 PM)[facility] 2016-05-17 23:16:00 Test Item Value Reference Range Interpretation Comments UA pH (test code = UA pH) 6.5 1 5.0-8.0 [facility] [id number] 23:16:00 Test Item Value Reference Range Interpretation Comments UA Spec Grav (test code = UA Spec 1.020 1 Grav) [facility] AYKHP2774-86-02 23:16:00Yellow *NA*(05/17/16 5:16 PM) [facility] DJRVH7975-97-14 23:16:00Negative (05/17/16 5:16 PM) [facility] BINTA1508-35-89 23:16:00Negative *NA*(05/17/16 5:16 PM)[facility] ELJZE7056-69-81 23:16:00Negative (05/17/16 5:16 PM) [facility] WAVVB3256-50-53 23:16:000.2[facility] PSYMO1899-58-93 23:16:00Clear (05/17/16 5:16 PM)[facility] STOOL 2016-05-17 23:16:00Negative (05/17/16 5:16 PM)[facility] STOOL 2016-05-17 23:16:00 Test Item Value Reference Range Interpretation Comments UA pH (test code = UA pH) 6.5 1 5.0-8.0 [facility] GPNFV8820-97-47 23:16:00 Test Item Value Reference Range Interpretation Comments UA Spec Grav (test code = UA Spec 1.020 1 Grav) [facility] DQXRY9406-48-14 23:16:00Yellow *NA*(05/17/16 5:16 PM) [facility] LTVVOAE5472-09-71 22:01:0074[facility] CFCSOYP8014-09-57 22:01:000.8[facility] GXFPUXG4088-41-20 22:01:00 <0.02[facility] MMUVTVG8286-92-84 22:01:001.1[facility] CHEM PXTLK5343-97-03 22:01:0079[facility]ann[facility] ILDAD0778-11-85 22:01:26438 [facility] CDXBB2013-53-04 22:01:0028[facility]ann[facility] PANEL 2016-05-17 22:01:008.8[facility]ann[facility] OBNDC8186-46-69 22:01:000.4[facility]ann[facility] RMGBM5447-14-45 22:01:009.7[facility]ann[facility] LZUJJ7413-37-27 22:01:0014[facility]ann[facility] WOWWA4987-34-19 22:01:0014[facility]ann[facility] JKQHS3818-45-95 22:01:007.7[facility]ann[facility] IYGMG2384-40-63 22:01:004.4 [facility] FKTTJ0476-96-87 22:01:000.8[facility]annCHEM PANEL 2016-05-17 22:01:50578Kpjbcasc HermannCHEM TNTVB2166-38-08 22:01:0015[facility]annCHE[facility] ADYCB3806-09-71 22:01:001.11[facility]annCHE[facility] KFLVY5918-99-67 22:01:10041Kserwaoa HermannCHEM SGYNX6849-22-99 22:01:003.7[facility]annCHE[facility] MVVZR4536-32-84 22:01:003.3[facility]annCHE[facility] AFCMR0554-35-94 22:01:18791 [facility]annCHE[facility] UKETZ5681-86-90 22:01:0030[facility]annHEMATOLOGY 2016-05-17 22:01:007.3[facility] IyiadypUXKLVEZURV4771-16-17 22:01:60871Vknbltra ZcodqdzIJZGJQDPIY6828-31-18 22:01:005.30[facility] QniqnwrYMZUMSDRMY6651-46-92 22:01:0010.5[facility] EycgciwPLLXGOKLZY9053-55-71 22:01:0012.4[facility] DKQMJMWVCK3169-79-54 22:01:0036.8[facility] BsniiviIRSWVDAYMJ3884-56-76 22:01:00 69.4[facility] DpksrkpFLXZHZMJBN1045-82-85 22:01:00 Test Item Value Reference Range Interpretation Comments MCH (test code = MCH) 23.4 pg 27.0-31.0 [facility] NifwiieECWHAXBBZU8230-73-12 22:01:0033.7[facility]annHEMATOLOGY 2016-05-17 22:01:0017.1[facility] AsxrsdiKCWLEDZEQN8712-98-58 22:01:00 Test Item Value Reference Range Interpretation Comments aPTT (test code = aPTT) 35.4 s 22.9-35.8 [facility] YxratemSBAHQBPXUF6354-77-72 22:01:00 Test Item Value Reference Range Interpretation Comments PROTIME (test code = PROTIME) 13.1 s 12.0-14.7 [facility] DwcayufGHVZHXDEYE9648-16-82 22:01:000.97[facility]annHEMATOLOGY 2016-05-17 22:01:001.1[facility] RoxhrphKSHHNEKJQC4091-74-09 22:01:006.7[facility] BlpunypDLAGQVNDBO9932-71-58 22:01:007.2[facility] YvhgminGRTUDQAJNQ2852-95-35 22:01:001.1[facility] FwetukuDLASVDPMNU6676-17-98 22:01:002.4[facility] VCKEGPIEUR3570-64-81 22:01:000.7[facility] GdgyesyQGSPJYWVEQ1414-25-09 22:01:000.1 [facility] OyklavvBCXGUYTDCD0579-90-96 22:01:002+ *ABN*(05/17/16 4:01 PM)[facility] EkcklwxISDOOQXXHG0321-60-09 22:01:000.1[facility] RvdjcwaCJPELHGGOU7439-94-19 22:01:0022.3[facility] IvdrxroTMKUSWCZDU3630-69-67 22:01:0068.8[facility] CARDIAC NLJZZDN5444-45-57 22:01:0074[facility]ann[facility] YTLMTNI4376-05-74 22:01:000.8[facility]annCARD[facility]AC YDNEFTX5810-10-02 22:01:00<0.02[facility]annCARDIAC GBNJJMX8795-56-83 22:01:001.1[facility]annCHEM ZQSXD8427-20-86 22:01:0079[facility]annCHE[facility] LDBPL3248-09-97 22:01:36766Ijxoaomw HermannCHEM HPLIV0667-19-96 22:01:0028[facility]annCHE[facility] VQFFN3864-49-60 22:01:008.8 [facility]annCHE[facility] MGAWF1120-93-83 22:01:000.4[facility]annCHEM PANEL 2016-05-17 22:01:009.7[facility]annCHE[facility] YMHLX9410-05-51 22:01:0014[facility]annCHE[facility] AVLGR0524-01-82 22:01:0014[facility]annCHE[facility] TLIWN9683-96-62 22:01:007.7[facility]annCHEM PJFVK3110-21-64 22:01:004.4[facility]annCHEM LXHWL3454-84-10 22:01:000.8[facility]annCHEM LRBEY3385-54-14 22:01:57440 [facility]annCHE[facility] WZJXW4456-02-40 22:01:0015[facility]annCHEM PANEL 2016-05-17 22:01:001.11[facility]annCHEM QNQKQ3241-06-05 22:01:78861Esrxrlyq HermannCHEM GKUOV1277-42-82 22:01:003.7[facility]annCHEM HFKMO2213-66-04 22:01:003.3[facility]annCHEM TGDDI8314-43-41 22:01:58124Przqmcvb HermannCHEM UFJDH2241-07-52 22:01:0030[facility] DhazjucKRJHMHTNTT5276-67-83 22:01:007.3 [facility] CexwlvrUIFJFOXTTJ6325-97-53 22:01:74852Idofagxr HermannHEMATOLOGY 2016-05-17 22:01:005.30[facility] ZxkutyxQTPURLGEII3623-08-61 22:01:0010.5[facility] EsjnrsaQDAOQATOAS7284-39-79 22:01:0012.4[facility] ZzwdeqqCDGIBATYHG6027-54-39 22:01:0036.8[facility] EkkenitLLKZOEQQBK7234-64-06 22:01:0069.4[facility] AECMRYJDJP4706-29-75 22:01:00 Test Item Value Reference Range Interpretation Comments MCH (test code = MCH) 23.4 pg 27.0-31.0 [facility] OmmlhfkZXEDAWMJAA6669-19-16 22:01:0033.7[facility]annHEMATOLOGY 2016-05-17 22:01:0017.1[facility] DbopdotQXMWCUWHEA0876-78-16 22:01:00 Test Item Value Reference Range Interpretation Comments aPTT (test code = aPTT) 35.4 s 22.9-35.8 [facility] PiqnywhTZEAFLHNOC6024-64-94 22:01:00 Test Item Value Reference Range Interpretation Comments PROTIME (test code = PROTIME) 13.1 s 12.0-14.7 [facility] DqowlvmQQHMJPWZQX4210-65-91 22:01:000.97[facility]annHEMATOLOGY 2016-05-17 22:01:001.1[facility] RxhyqtdXUKPAVFQBZ0159-54-59 22:01:006.7[facility] EziomybBETWXIHYBF7597-55-92 22:01:007.2[facility] WjnreezMOOOIRRKTQ5919-30-47 22:01:001.1[facility] RymtlqdGIHTXTNCNF9860-49-95 22:01:002.4[facility] TZQRRFNPMM7374-51-61 22:01:000.7[facility] WgodereHJWIWNCGXE2329-93-10 22:01:000.1 [facility] YehtmnoENTHMSFDRW8809-13-93 22:01:002+ *ABN*(05/17/16 4:01 PM)[facility] VxvzjppJWNSUOIAEK8424-74-33 22:01:000.1[facility] YbamxhqIUIPXKAOAV4760-95-34 22:01:0022.3[facility] HcuorosQEDIUTJEMF4026-20-37 22:01:0068.8[facility] CARDIAC KQLEINY8582-53-53 15:25:00<0.02[facility] JamfoxfGHIEXDADCI8104-04-33 15:25:00 Test Item Value Reference Range Interpretation Comments aPTT (test code = aPTT) 50.1 s 22.9-35.8 [facility]annCARDIAC ALSSHOO9094-75-45 15:25:00<0.02[facility] HYBJTGURRX3640-29-70 15:25:00 Test Item Value Reference Range Interpretation Comments aPTT (test code = aPTT) 50.1 s 22.9-35.8 [facility] DksawgnTBJKYOIAMBCL9780-21-42 08:42:0010.8[facility] HermannELECTROLYTES 2016-05-06 08:42:0028[facility] VuggnilDLAULTDGVSSE5248-71-74 08:42:98725Tfqewtcd CpagjchMIOUZGLKDGTJ3758-43-82 08:42:008.7[facility] MgbkzssWNOEBMNREPMU1857-35-57 08:42:05867Gutlmsof QtcjccuSULOMNGDTIKB3425-77-28 08:42:88836Twjaddgt [facility] KNQPDVSOTMDL0893-97-67 08:42:000.86[facility] WartypqEVBHQVOWHRJW2751-73-90 08:42:0018[facility] OcqckdjESYUXZBXLLTY4178-31-25 08:42:003.8[facility] PKXNRFVIEXNA3538-00-06 08:42:62680Xgpjtrnp RovwdotAJSDZBSKCQ9902-13-60 08:42:00 2+ *ABN*(05/06/16 2:42 AM)[facility] XqrgxhmORIMKNJDKG6414-05-90 08:42:000.2 [facility] AywuvbeLYYCCZAHCG1173-88-18 08:42:000.8[facility]annHEMATOLOGY 2016-05-06 08:42:007.9[facility] CatbohaEHDKUELTFV1584-78-30 08:42:002.5[facility] QwmipnqVMMEEASOBV9300-92-34 08:42:006.5[facility] QoldlmoZPEVQQILPH1156-37-74 08:42:000.4[facility] TwfkmioTTARPMKNQH6406-46-79 08:42:001.7[facility] XLBKQZAZNL9566-90-09 08:42:0024.8[facility] SqgrshbGCSNIRAJHT6380-24-21 08:42:00 65.2[facility] YgztlskRXLAHUMJSX6067-83-66 08:42:005.11[facility]annHEMATOLOGY 2016-05-06 08:42:0036.2[facility] PkrenmkDYSMEIRRCE4326-36-16 08:42:0011.8[facility] AyggdjgNKMWQOSPZZ2171-15-57 08:42:36322Wwqadlvb GyxkeqzPRTOWPVHFU0642-53-39 08:42:0017.1[facility] DvroywfYEATKTEUQX3219-76-33 08:42:007.8[facility] CRTSYLZSXC4378-11-03 08:42:009.9[facility] EnaexmxNMPSBUUNCR0798-98-18 08:42:00 32.5[facility] CbqufotQIKZFXAXOP0276-83-66 08:42:00 Test Item Value Reference Range Interpretation Comments MCH (test code = MCH) 23.0 pg 27.0-31.0 [facility] FaoqneoDQATVYRCQU1191-39-79 08:42:0070.8[facility] HermannELECTROLYTES 2016-05-06 08:42:0010.8[facility] FjklkuhXUNFNYWGIVHW8278-80-92 08:42:0028[facility] OjosduwXECMDBMVGQJL8392-42-84 08:42:21702Oaynlzev ZjaalaiJHIMRUTKVFFT4552-37-61 08:42:008.7[facility] RtsjupnCHHZQNEKXTGJ1827-29-89 08:42:93472Blbipzeg [facility] CCTFEDCXPWMJ8462-54-88 08:42:92839Zrowxtyi MfehlqiMQNACBOMCXLK8574-51-52 08:42:000.86[facility] DlnsnvvIUIXXOMYZMOZ8107-75-07 08:42:0018[facility] QHGOAHVFLDCC4929-15-68 08:42:003.8[facility] MnulzhlIOXTWEUTISQH0100-03-95 08:42:20304Enufevrh AuscdrdZLPHZJLNRW7628-61-25 08:42:002+ *ABN*(05/06/16 2:42 AM)[facility] MkketfiWZVPCNRQDJ6208-28-06 08:42:000.2[facility]annHEMATOLOGY 2016-05-06 08:42:000.8[facility] PeokokyUOFQZUSWDO3025-94-37 08:42:007.9[facility] NkbmcpeGLVTBQSWBD0336-64-69 08:42:002.5[facility] NnlzpazUYKYSGUFHU1330-61-19 08:42:006.5[facility] KruessiCWWRXYGNNO8447-26-21 08:42:000.4[facility] FJSRRLOJBI6342-76-71 08:42:001.7[facility] AwxlmycXETDGDQPNF4236-83-46 08:42:00 24.8[facility] MuhxxmmFQJLEQCNKK5705-57-55 08:42:0065.2[facility]annHEMATOLOGY 2016-05-06 08:42:005.11[facility] NxayxczSDTWWKBLSY4283-95-04 08:42:0036.2[facility] XuxkpvcFXBCWSNTSW9358-07-38 08:42:0011.8[facility] HaizkijQVJCKXPHCK9871-84-26 08:42:48345Kkgdvwab WrfayumYCWCAMVOXH8710-80-46 08:42:0017.1[facility] SYHGCBAZRX1800-93-46 08:42:007.8[facility] EurfsjoVHZRXGDUGZ1250-60-99 08:42:009.9 [facility] KubfpwxJDGSLEQXEG7016-32-04 08:42:0032.5[facility]annHEMATOLOGY 2016-05-06 08:42:00 Test Item Value Reference Range Interpretation Comments MCH (test code = MCH) 23.0 pg 27.0-31.0 [facility] YuddgjnYDJHKYFHSM5690-24-71 08:42:0070.8[facility]annHEMATOLOGY 2016-05-06 08:20:00 Test Item Value Reference Range Interpretation Comments PROTIME (test code = PROTIME) 13.4 s 12.0-14.7 [facility] UucitklNJGBHMJYNY8748-80-37 08:20:001.00[facility]annHEMATOLOGY 2016-05-06 08:20:00 Test Item Value Reference Range Interpretation Comments aPTT (test code = aPTT) 49.1 s 22.9-35.8 [facility] TzrgdluBUEKQIDFJA7142-83-50 08:20:00 Test Item Value Reference Range Interpretation Comments PROTIME (test code = PROTIME) 13.4 s 12.0-14.7 [facility] QvnqvayXIVIFWOMTH4887-24-96 08:20:001.00[facility]annHEMATOLOGY 2016-05-06 08:20:00 Test Item Value Reference Range Interpretation Comments aPTT (test code = aPTT) 49.1 s 22.9-35.8 [facility] VPTJA4913-61-19 04:09:00None Seen (05/05/16 10:09 PM) [facility] IUEWX8645-17-88 04:09:00Negative (05/05/16 10:09 PM) [facility] HVWKH4556-17-78 04:09:00None Seen (05/05/16 10:09 PM) [facility] YIVQG8776-66-76 04:09:00None Seen (05/05/16 10:09 PM) [facility] LYBGL7072-12-10 04:09:00Negative (05/05/16 10:09 PM) [facility] ZVXGB1919-34-69 04:09:000.2[facility] GLBIF6677-87-69 04:09:00Negative (05/05/16 10:09 PM)[facility] NGYYK6549-02-87 04:09:00Yellow *NA*(05/05/16 10:09 PM)[facility] HIVDW4414-23-21 04:09:00Negative (05/05/16 10:09 PM)[facility] UWLAI2891-89-38 04:09:00Negative *NA*(05/05/16 10:09 PM)[facility] TDXQP9900-84-63 04:09:00Negative *NA*(05/05/16 10:09 PM)[facility] URINE AND IQIEG6156-07-90 04:09:00Negative (05/05/16 10:09 PM)[facility] URINE AND IJJZY4346-42-52 04:09:00 Test Item Value Reference Range Interpretation Comments UA pH (test code = UA pH) 6.0 1 5.0-8.0 [facility] KICLV7021-74-57 04:09:00Clear (05/05/16 10:09 PM) [facility] JMFEN6902-86-22 04:09:00>=1.030 *ABN*(05/05/16 10:09 PM)[facility] QYHBA5193-71-98 04:09:00None Seen (05/05/16 10:09 PM)[facility] MJBPP5900-69-00 04:09:00Negative (05/05/16 10:09 PM)[facility] IVBTH1951-70-41 04:09:00None Seen (05/05/16 10:09 PM)[facility] PGTRV7705-78-77 04:09:00None Seen (05/05/16 10:09 PM)[facility] ONXMO7308-06-32 04:09:00Negative (05/05/16 10:09 PM)[facility] PRWCT6820-58-40 04:09:000.2[facility] URINE AND ZXAAU1641-40-17 04:09:00Negative (05/05/16 10:09 PM)[facility] URINE AND VSRET7005-24-19 04:09:00Yellow *NA*(05/05/16 10:09 PM)[facility] URINE AND JXTRF0130-25-93 04:09:00Negative (05/05/16 10:09 PM)[facility] URINE AND XNOGZ6190-11-70 04:09:00Negative *NA*(05/05/16 10:09 PM)[facility] TUUUZ2083-94-64 04:09:00Negative *NA*(05/05/16 10:09 PM) [facility] GTPQW6910-44-78 04:09:00Negative (05/05/16 10:09 PM) [facility] JMDDX7497-06-49 04:09:00 Test Item Value Reference Range Interpretation Comments UA pH (test code = UA pH) 6.0 1 5.0-8.0 [facility] QPWZZ8086-56-35 04:09:00Clear (05/05/16 10:09 PM) [facility] PSSTJ3049-06-83 04:09:00>=1.030 *ABN*(05/05/16 10:09 PM)[facility]annBACTERIAL - EWESQWZD7757-40-52 04:06:00Negative (05/05/16 10:06 PM)[facility]annBACTERIAL - AKMGQVZX3710-54-86 04:06:00 Negative (05/05/16 10:06 PM)[facility] RggufdcGKWAVDEQOY5198-91-35 03:38:000.1 [facility] RgjtqjrSZBQYOOEWM8469-70-30 03:38:002+ *ABN*(05/05/16 9:38 PM)[facility] PjjjdceOJIQCQVUTM4888-33-19 03:38:001.4[facility] UuwrklsOFDCETAXHS4141-84-57 03:38:000.7[facility] ScsjmhbPYOXVVPZQN6691-86-14 03:38:007.1[facility] RFHWDKUNTX2524-14-70 03:38:0024.8[facility] XlaybguETJKQBASEK5792-63-26 03:38:00 7.9[facility] XwintlgUWRTOMWRNX8986-55-64 03:38:000.9[facility]annHEMATOLOGY 2016-05-06 03:38:000.2[facility] RuikckdKMNOGALYZN7607-99-07 03:38:002.7[facility] IaerzlpHVNVELLZPG1982-87-36 03:38:0065.2[facility] BarfpmiFCIAHRVGKK7216-16-38 03:38:0069.7[facility] WwjvgyfTBIPADQEZH0863-10-15 03:38:00 Test Item Value Reference Range Interpretation Comments MCH (test code = MCH) 23.3 pg 27.0-31.0 [facility] HajffmwNHVRHGZQKH9512-11-64 03:38:0012.2[facility]annHEMATOLOGY 2016-05-06 03:38:0036.5[facility] WbiggsxZSKLVDLDED8979-40-97 03:38:0033.4[facility] YharcrnEBRVWCZEOY9969-32-04 03:38:12794Kosvuxta ZxdwimePQOJLOBIVW9782-06-43 03:38:007.2[facility] FcxtalrPGKZSLPUTB0448-02-94 03:38:0017.5[facility] KNJJMPMOGZ0431-67-46 03:38:0011.0[facility] WvjvnyhTGMDWCLVLA9534-21-33 03:38:00 5.24[facility] UsmqjdeVSLMWHMNJS4402-24-98 03:38:000.1[facility]annHEMATOLOGY 2016-05-06 03:38:002+ *ABN*(05/05/16 9:38 PM)[facility]annHEMATOLOGY 2016-05-06 03:38:001.4[facility] ErpzvmzZCCIQHKETH7671-54-98 03:38:000.7[facility] PgtyuhrSUUAWWBBJJ5485-54-48 03:38:007.1[facility] QizzfdmBSLTRWSWIB4715-03-72 03:38:0024.8[facility] MilohzdJKJKTTUWKI5659-21-70 03:38:007.9[facility] FZBXJHUICP0802-92-42 03:38:000.9[facility] EppjmrySUEHVRIVMB3405-16-45 03:38:000.2 [facility] HoslmjyKVRXZIHIJM0679-36-87 03:38:002.7[facility]annHEMATOLOGY 2016-05-06 03:38:0065.2[facility] FxztxxxXNWAWBAZWV1803-93-77 03:38:0069.7[facility] TlcyiebJLPAIODCKW6928-48-55 03:38:00 Test Item Value Reference Range Interpretation Comments MCH (test code = MCH) 23.3 pg 27.0-31.0 [facility] JwbugimGKWTAVSMRM9483-02-00 03:38:0012.2[facility]annHEMATOLOGY 2016-05-06 03:38:0036.5[facility] DwblzxrGWBAOVQRDI2958-80-88 03:38:0033.4[facility] RnuxxdnSKYSLQRZMU0277-88-52 03:38:12739Psqispem ZkezowyDVJAJAHZRR5415-91-66 03:38:007.2[facility] MtcojsiRRFFINSPWH8698-00-93 03:38:0017.5[facility] KGVWPTJZNA0726-00-86 03:38:0011.0[facility] MwhgcnfYWOFNGNUGY3050-04-11 03:38:00 5.24[facility] UvfgojhXXNPIAHALL6047-87-73 01:53:001.05[facility]annHEMATOLOGY 2016-05-06 01:53:00 Test Item Value Reference Range Interpretation Comments PROTIME (test code = PROTIME) 13.9 s 12.0-14.7 [facility] QxxflmdYQNQTCTNBK2256-54-76 01:53:00 Test Item Value Reference Range Interpretation Comments aPTT (test code = aPTT) 35.3 s 22.9-35.8 [facility] GftzjazINGLEUZXPH9847-94-77 01:53:001.05[facility]annHEMATOLOGY 2016-05-06 01:53:00 Test Item Value Reference Range Interpretation Comments PROTIME (test code = PROTIME) 13.9 s 12.0-14.7 [facility] QdzhpuuAYBSCYAVRB0294-51-68 01:53:00 Test Item Value Reference Range Interpretation Comments aPTT (test code = aPTT) 35.3 s 22.9-35.8 [facility]annCARDIAC GAWSURZ0992-70-26 23:11:001.0[facility]annCARDIAC IHYPDCL0979-63-34 23:11:000.8[facility]annCARD[facility]AC TXKDROT7064-59-74 23:11:00 80[facility]annCARDIAC WGEPCNX6362-61-75 23:11:00<0.02[facility]annCHEM YCKWR2404-05-51 23:11:59962Qsjtybmf HermannCHEM LOSCU6621-83-79 23:11:42408 [facility]annCHEM QFQPZ8468-97-18 23:11:0017[facility]annCHEM PANEL 2016-05-05 23:11:001.01[facility]annCHEM LTCVL2119-64-09 23:11:64891Gyytuupw HermannCHEM LBKAM9974-45-07 23:11:0034[facility]annCHEM OYQXQ0732-93-22 23:11:003.3[facility]annCHEM HVFMN7248-05-47 23:11:17395Czynxbbl HermannCHEM SRZIN4069-41-60 23:11:0088[facility]annCHEM HZXEF6176-16-63 23:11:000.4 [facility]annCHE[facility] CCIZM1114-43-84 23:11:008.6[facility]annCHEM PANEL 2016-05-05 23:11:003.7[facility]annCHEM EUZJL6594-22-02 23:11:0028[facility]annCHEM CQVKB0045-49-19 23:11:007.8[facility]annCHEM LXTTT8783-04-22 23:11:0016[facility]annCHEM MALST7554-75-64 23:11:009.7[facility]annCHEM IWHLL7336-65-69 23:11:0017[facility]annCHEM TEXBG5407-99-33 23:11:004.5 [facility]annCHE[facility] XPXEW4388-06-93 23:11:000.7[facility]annHEMATOLOGY 2016-05-05 23:11:000.8[facility] XxawacfQAOIHTBNCK6043-85-42 23:11:000.1[facility] DztdikxSAUAEXDLXM0524-60-86 23:11:000.1[facility] ZgzfvrzHIKCGEQIPQ1130-00-62 23:11:002+ *ABN*(05/05/16 5:11 PM)[facility] AdrsyisSUPMUDPPDV1699-36-80 23:11:00 7.5[facility] TieuntxAMTBUPRWIC7720-34-96 23:11:001.1[facility]annHEMATOLOGY 2016-05-05 23:11:000.7[facility] MhusjfcQSQPXGKEOV2643-39-79 23:11:007.5[facility] ZueboxoXINDFLSOAT1236-94-64 23:11:002.1[facility] ZplrnnfZUTZDLQUTH3220-39-71 23:11:0019.9[facility] JbisbgiTIFMWFTDPS2207-82-06 23:11:0070.8[facility] WQDRNWBOAL9913-90-98 23:11:50712Vydwbkkj ZgnptinESSEWPTPVP6569-30-25 23:11:00 33.6[facility] AatouvmRRKXEQIBFW9944-66-10 23:11:007.3[facility]annHEMATOLOGY 2016-05-05 23:11:0016.9[facility] XvhkcafXNDUPAFOXM9943-99-49 23:11:0069.5[facility] NfvwiwiBGECSZDVFB9904-51-41 23:11:00 Test Item Value Reference Range Interpretation Comments MCH (test code = MCH) 23.4 pg 27.0-31.0 [facility] JcfylpuVNAUKVECSD5288-43-25 23:11:0037.4[facility]annHEMATOLOGY 2016-05-05 23:11:0012.6[facility] XqcsqcuMRKWUBGWDF3687-26-63 23:11:0010.6[facility] GehssynTNSUFGJONM6611-99-62 23:11:005.39[facility]annCARDIAC ENZYMES 2016-05-05 23:11:001.0[facility]annCARDIAC YLGUDZE1649-15-95 23:11:000.8 [facility]annCARDIAC UJQGEMY5453-34-64 23:11:0080[facility]annCARDIAC SVGXDLR2756-29-33 23:11:00<0.02[facility]annCHEM LMQUS5334-83-98 23:11:00 133[facility]annCHEM JIORW0300-19-54 23:11:33874Bpzcvwws HermannCHEM PANEL 2016-05-05 23:11:0017[facility]annCHEM GUSBK4999-64-37 23:11:001.01[facility]annCHEM MMBBB1416-34-92 23:11:24906Ueewjcss HermannCHEM SLLZT4834-20-43 23:11:0034[facility]annCHEM VLCUI9663-75-36 23:11:003.3[facility]annCHEM YKSVV2976-84-13 23:11:99696Quxuojhd HermannCHEM XKUZQ7551-46-59 23:11:0088 [facility]annCHEM PJSQE1821-26-49 23:11:000.4[facility]annCHEM PANEL 2016-05-05 23:11:008.6[facility]annCHEM JVKTW4930-19-10 23:11:003.7[facility]annCHEM NYJXD2976-45-83 23:11:0028[facility]annCHEM MGMSJ9365-51-56 23:11:007.8[facility]annCHEM VWSMT8788-24-65 23:11:0016[facility]annCHEM JNAIE0458-26-23 23:11:009.7[facility]annCHEM TYNIR8981-99-21 23:11:0017 [facility]annCHEM LOZWH1056-37-00 23:11:004.5[facility]annCHEM PANEL 2016-05-05 23:11:000.7[facility] SwavhbiFRNMXFROPG4378-60-58 23:11:000.8[facility] SdinrqyDULXWRGCOK5312-76-81 23:11:000.1[facility] XnamkrbSOEJFIBYYB2903-87-50 23:11:000.1[facility] PwzjtxgCMJEQDQZRG0899-06-27 23:11:002+ *ABN*(05/05/16 5:11 PM)[facility] BgknvwiQFXAYXQWEC3971-40-24 23:11:007.5[facility]annHEMATOLOGY 2016-05-05 23:11:001.1[facility] HviciruTEZOJISLER3908-67-09 23:11:000.7[facility] VfapcurYGFHJMCQPR6691-61-79 23:11:007.5[facility] CyjskfkSYCXCRPVJU3924-80-29 23:11:002.1[facility] SlodgrwXOCCJCUKHB7992-17-68 23:11:0019.9[facility] ASTQJYVXMV3113-94-37 23:11:0070.8[facility] DplmkudRYXBVZTPEN8959-41-13 23:11:00 306[facility] KffhzutDBJNGAAIUI2388-35-49 23:11:0033.6[facility]annHEMATOLOGY 2016-05-05 23:11:007.3[facility] WqhivudWPDHWMRNOX2078-23-19 23:11:0016.9[facility] ArimzjqPWUTVCNZAX3659-06-46 23:11:0069.5[facility] RupwuccVECNNNRIQR4412-70-08 23:11:00 Test Item Value Reference Range Interpretation Comments MCH (test code = MCH) 23.4 pg 27.0-31.0 [facility] MgigxfwIOHVTIRABV4221-15-38 23:11:0037.4[facility]annHEMATOLOGY 2016-05-05 23:11:0012.6[facility] YonfcphDGQZZAVOKK7041-34-95 23:11:0010.6[facility] PmxbecdUBUVVBTTZP7903-40-68 23:11:005.39[facility]annCHEM RVJWA1755-51-60 23:17:004.2[facility]annCHEM NTHHX7180-56-09 23:17:0019[facility]annCHEM POUGC0239-48-03 23:17:009.9[facility] HermannCHEM SHABY5147-05-49 23:17:000.8 [facility]annCHEM ZVSEC2890-22-49 23:17:35252Bepmspem HermannCHEM PANEL 2016-04-25 23:17:34044Znkyfusp HermannCHEM RGSND4913-32-50 23:17:003.4[facility]annCHEM ALZFL3544-02-86 23:17:0030[facility]annCHEM FXUGB6246-43-48 23:17:007.6[facility]annCHEM TZGUN3687-10-68 23:17:000.3[facility]annCHEM PXCKJ0953-29-25 23:17:0014[facility]annCHEM YJYDO0978-47-72 23:17:0026 [facility]annCHEM SJEKH8046-88-03 23:17:008.7[facility]annCHEM PANEL 2016-04-25 23:17:82641Vxwkcpsv HermannCHEM CEERP0877-52-73 23:17:003.9[facility] HermannCHEM OUDGY5728-72-11 23:17:90266Fzyofdoz HermannCHEM KDMWT6331-94-09 23:17:50804Rpxtcgrs HermannCHEM UYJSX6398-99-51 23:17:000.91[facility]annCHEM EKAUA9801-58-59 23:17:0017[facility] NgnkwzmUZTEDXRANQ3974-69-58 23:17:005.40 [facility] ZmllztiMRXATZUGAF4118-51-31 23:17:0010.3[facility]annHEMATOLOGY 2016-04-25 23:17:0012.9[facility] LxxxogmGUKDOYQGZC3275-68-36 23:17:007.2[facility] BxhkjwlEOFFXDPWPY7926-85-63 23:17:0016.8[facility] VmwcayiCYCGWADJXJ2069-59-85 23:17:98704Qrrqqmmj BpkzwkzFCFHDROWPP1676-03-35 23:17:00 Test Item Value Reference Range Interpretation Comments MCH (test code = MCH) 23.8 pg 27.0-31.0 [facility] YxxnixoPXVVEZAZFN4401-81-43 23:17:0034.0[facility]annHEMATOLOGY 2016-04-25 23:17:0037.9[facility] JywokpiZDMLBMJFQQ5120-51-43 23:17:0070.1[facility] GbxxngdIVGLVVMLUD5382-75-50 23:17:002.3[facility] PtfnvebJYLDDNCEQP7016-75-93 23:17:000.1[facility] TkcaaskQYJMOKZOYK6790-59-63 23:17:000.6[facility] DTOMVQZPCS4959-26-01 23:17:000.1[facility] SwhgfytYUQEMRHGRO7694-89-63 23:17:002+ *ABN*(04/25/16 6:17 PM)[facility] JwsmtvrNXTVLFYIPN2093-32-96 23:17:0069.2[facility] OpqfyjpQLNYUIRLIA1493-59-38 23:17:007.1[facility] IloybmvFCERGDXZWJ9972-13-39 23:17:006.1[facility] WajmuxkLFEWCHCLFS4965-77-69 23:17:001.1[facility] DKPHGNVTAA2458-87-77 23:17:001.1[facility] RzsqebgWNHRDWJHLM6530-99-91 23:17:00 22.5[facility] LYMRP1807-54-25 23:17:00Negative (04/25/16 6:17 PM) [facility] AOHNW6012-64-26 23:17:00 Test Item Value Reference Range Interpretation Comments UA pH (test code = UA pH) 6.0 1 5.0-8.0 [facility] EYEHN2519-04-41 23:17:00Negative (04/25/16 6:17 PM) [facility] SDHTU8805-93-23 23:17:00Negative *NA*(04/25/16 6:17 PM) [facility] JGHSN5236-52-89 23:17:00Negative *NA*(04/25/16 6:17 PM) [facility] CJXND9060-33-65 23:17:00Negative (04/25/16 6:17 PM) [facility] UVPZT1203-51-08 23:17:000.2[facility] PUOVW4352-34-29 23:17:00Negative (04/25/16 6:17 PM)[facility] DXRRJ1198-89-09 23:17:00Yellow *NA*(04/25/16 6:17 PM)[facility] YZQZV7271-11-38 23:17:00Clear (04/25/16 6:17 PM)[facility] STOOL 2016-04-25 23:17:00 Test Item Value Reference Range Interpretation Comments UA Spec Grav (test code = UA Spec 1.020 1 Grav) [facility]annCHE[facility] MKIFL3543-14-56 23:17:004.2[facility]annCHEM PANEL 2016-04-25 23:17:0019[facility]annCHEM UMYMJ9654-59-49 23:17:009.9[facility]annCHEM OEJML0390-06-57 23:17:000.8[facility]annCHEM CLPVR7137-89-77 23:17:56177Alqsstmn HermannCHEM JFNTF2818-49-20 23:17:17769Dzfqgfkw HermannCHEM CSYQH3449-12-62 23:17:003.4[facility]annCHEM SBKBL3390-83-39 23:17:0030 [facility]annCHE[facility] ANDCZ7669-16-45 23:17:007.6[facility]annCHEM PANEL 2016-04-25 23:17:000.3[facility]annCHEM PUHUR1741-76-11 23:17:0014[facility]annCHEM OLFLA6949-34-90 23:17:0026[facility]annCHEM NETYE4025-64-22 23:17:008.7[facility]annCHEM GRHWU0663-23-66 23:17:92827Bupvjvzo HermannCHEM QRKAC4660-70-02 23:17:003.9[facility]annCHEM THJDK5370-09-20 23:17:39902 [facility]annCHE[facility] KRFUF9611-75-54 23:17:95631Jmehsinz HermannCHEM PANEL 2016-04-25 23:17:000.91[facility]annCHEM PSERU3590-94-77 23:17:0017[facility] LwwkvrqHFUBNLHCCU9677-03-39 23:17:005.40[facility] CuvpptsPAJIYQPVXK3245-49-82 23:17:0010.3[facility] NlapookXHGMIFLCFN1640-61-30 23:17:0012.9[facility] IIEGEUBTJO3336-59-32 23:17:007.2[facility] RmyropjXOKGGSXQHF6671-44-22 23:17:00 16.8[facility] NcthltvWSOTVCAKVX2876-60-89 23:17:43979Zxnjaaex HermannHEMATOLOGY 2016-04-25 23:17:00 Test Item Value Reference Range Interpretation Comments MCH (test code = MCH) 23.8 pg 27.0-31.0 [facility] HaovayvADDLMYTPMD1221-82-06 23:17:0034.0[facility]annHEMATOLOGY 2016-04-25 23:17:0037.9[facility] VjfvihmKUKUKHFURX7369-96-90 23:17:0070.1[facility] YwshmtvOCKXDETGGX6936-33-54 23:17:002.3[facility] CvvqhkdNJKPZZATCM7151-53-73 23:17:000.1[facility] NvoicclFIRXFERVHJ7392-37-51 23:17:000.6[facility] HVDROBOKTB7987-15-49 23:17:000.1[facility] LivqivzAYVTPTJURN0227-36-49 23:17:002+ *ABN*(04/25/16 6:17 PM)[facility] GsauqciOAFEYBTLYJ5781-68-07 23:17:0069.2[facility] PjoqbcpDWICPJADQT3914-55-76 23:17:007.1[facility] DcdwdikOWKWBYIYBS4954-58-42 23:17:006.1[facility] ThyxuduCMZHBFBCWH7340-34-81 23:17:001.1[facility] NONTZGIZME4215-25-80 23:17:001.1[facility] NjzevsmRZBIMBMQLA7829-16-30 23:17:00 22.5[facility] QMYDR8691-54-15 23:17:00Negative (04/25/16 6:17 PM) [facility] WJMFN9239-46-76 23:17:00 Test Item Value Reference Range Interpretation Comments UA pH (test code = UA pH) 6.0 1 5.0-8.0 [facility] IELVI8976-63-01 23:17:00Negative (04/25/16 6:17 PM) [facility] BAFSW5356-07-93 23:17:00Negative *NA*(04/25/16 6:17 PM) [facility] HVAID3055-79-77 23:17:00Negative *NA*(04/25/16 6:17 PM) [facility] UHXRD2081-14-70 23:17:00Negative (04/25/16 6:17 PM) [facility] AAVBH1908-18-08 23:17:000.2[facility] LVTEY2362-31-82 23:17:00Negative (04/25/16 6:17 PM)[facility] NANJR7545-04-50 23:17:00Yellow *NA*(04/25/16 6:17 PM)[facility] ULHWS3329-85-67 23:17:00Clear (04/25/16 6:17 PM)[facility] STOOL 2016-04-25 23:17:00 Test Item Value Reference Range Interpretation Comments UA Spec Grav (test code = UA Spec 1.020 1 Grav) [facility]annCARDIAC XBCZVEX7570-04-33 13:55:00<0.02[facility] CARDIAC WAITIYT2144-52-10 13:55:000.8[facility] HermannCARDIAC WLJHEBE4248-71-64 13:55:0060[facility]annCARDIAC OVXLGXV7673-90-08 13:55:001.3[facility] CARDIAC SCUHCXF6506-40-73 13:55:00<0.02[facility]annCARDIAC ENZYMES 2016-03-05 13:55:000.8[facility]annCARDIAC DMQBUPG6873-03-58 13:55:0060 [facility]annC[facility]AC NJGGREW7523-09-92 13:55:001.3[facility]annCARDIAC WHTXTMK9340-29-41 12:30:00<0.02[facility]annCARDIAC EXKMTEW9735-88-78 12:30:0066[facility]annCARDIAC ZXFNHCE6813-86-25 12:30:000.6[facility] CARDIAC GEXBOQX5028-55-99 12:30:000.9[facility] HermannCHEM RDWIV8055-78-91 12:30:70322Twlvyssy HermannCHEM YBIFJ6955-26-18 12:30:0012.0[facility]annCHEM KQCCW2319-01-95 12:30:004.4[facility]annCHEM NGCCI5316-59-42 12:30:0014 [facility]annCHE[facility] WXFSY3046-14-12 12:30:000.8[facility] HermannCHEM PANEL 2016-03-05 12:30:008.8[facility] HermannCHEM WIXIR6952-49-47 12:30:000.6[facility]annCHEM YBWMZ0733-14-35 12:30:007.8[facility]annCHEM KNRXD0694-23-08 12:30:0016[facility]annCHEM XHMQE0041-45-33 12:30:61502Ojqpuijj HermannCHEM ODPNH9256-70-04 12:30:0097[facility]annCHEM DBCQN9897-62-83 12:30:000.88 [facility]annCHEM HRFQX8157-01-43 12:30:0012[facility]annCHEM PANEL 2016-03-05 12:30:19584Tljxyvur HermannCHEM STKQN0060-48-07 12:30:0032[facility]annCHEM YBTSO5006-27-71 12:30:003.4[facility]annCHEM ULRQA0781-09-74 12:30:004.0[facility]annCHEM SZCGH0837-71-71 12:30:74753Nduhafbf HermannCHEM VALWN6982-59-97 12:30:0025[facility] AccnwqpFGFUVNJCVU2885-76-87 12:30:58860 [facility] VnaetwwLZZJXEDTWL8513-94-95 12:30:007.4[facility] HermannHEMATOLOGY 2016-03-05 12:30:0010.0[facility] TrbprtpTOTPNRZTPD2473-33-91 12:30:0016.6[facility] UswslizRVFZVNLEVM5689-68-67 12:30:00 Test Item Value Reference Range Interpretation Comments MCH (test code = MCH) 24.1 pg 27.0-31.0 [facility] MefgspwGXYYXJPHYL1572-36-86 12:30:0033.4[facility]annHEMATOLOGY 2016-03-05 12:30:0072.2[facility] SxuarcuEDWSZCDYQM5346-25-36 12:30:0038.1[facility] TcmnnnjHMZVDRYRAD7889-40-41 12:30:005.28[facility] SudgypiQPKUPKJHLG7825-42-49 12:30:0012.7[facility] PhdyvfiWTIILTANRS1594-67-75 12:30:001+ *ABN*(03/05/16 7:30 AM)[facility] VycqqttQEIHIULFVF2910-29-09 12:30:000.1[facility] HermannHEMATOLOGY 2016-03-05 12:30:000.7[facility] BzubsuzRGSOFHOMHD8705-97-19 12:30:000.1[facility] AaonqjzWQSGWXEUHG1686-50-76 12:30:007.5[facility] ObfwxcmNSANIKGDVH2776-93-16 12:30:001.6[facility] YffcauaRMYNDIJYJE3632-23-44 12:30:001.2[facility] LGCNVGZEVK8908-52-09 12:30:000.6[facility] IfksrmlWVXXEUPHDL5212-58-47 12:30:00 75.1[facility] JvpdzpkMYOQQXIIAM9977-54-26 12:30:007.4[facility] HermannHEMATOLOGY 2016-03-05 12:30:0015.7[facility] HermannCARDIAC FOXHNLY1671-25-84 12:30:00 <0.02[facility]annCARDIAC QDTYGQS8938-25-12 12:30:0066[facility] CARDIAC RKCUIYA5118-27-28 12:30:000.6[facility]annCARDIAC VVYLAPQ9719-94-97 12:30:000.9[facility] HermannCHEM OSIKX2412-98-66 12:30:68272Tfmjhguk HermannCHEM APMZA0281-49-85 12:30:0012.0[facility]annCHEM FWKSP7643-47-56 12:30:004.4 [facility]annCHEM VPOWO4722-65-27 12:30:0014[facility]annCHEM PANEL 2016-03-05 12:30:000.8[facility]annCHEM QPZRQ3177-95-73 12:30:008.8[facility]annCHEM GWTTD8205-97-43 12:30:000.6[facility]annCHEM IHUNP6323-92-02 12:30:007.8[facility]annCHEM GHVMY8261-00-23 12:30:0016[facility]annCHEM KEIWL4229-32-80 12:30:62466Nquygocc HermannCHEM UCRBX9233-38-06 12:30:0097 [facility]annCHEM YSDMY1769-92-61 12:30:000.88[facility] HermannCHEM PANEL 2016-03-05 12:30:0012[facility]annCHEM UPEUL7398-66-99 12:30:67715Fudgxpav HermannCHEM ZFVWP3401-68-20 12:30:0032[facility]annCHEM KTFXS3245-84-23 12:30:003.4[facility]annCHEM MUQMA3707-33-47 12:30:004.0[facility]annCHEM XXUVO8939-21-25 12:30:36431Ljrcmujn HermannCHEM XHIKC5253-24-15 12:30:0025 [facility] CinbgozWZJDNKLYOQ2134-95-83 12:30:31133Keymgnpp HermannHEMATOLOGY 2016-03-05 12:30:007.4[facility] NpezzboQRJFNUEPRK4007-83-87 12:30:0010.0[facility] JajofdpCMNOSWWQBY8760-35-41 12:30:0016.6[facility] WxauvdbLYKABTKERZ5243-31-11 12:30:00 Test Item Value Reference Range Interpretation Comments MCH (test code = MCH) 24.1 pg 27.0-31.0 [facility] BntrieaUELQUKOTJA1767-99-44 12:30:0033.4[facility] HermannHEMATOLOGY 2016-03-05 12:30:0072.2[facility] LqswubuSBHXWJAETG1462-23-28 12:30:0038.1[facility] LktwvtaVIMPZGIHGZ9871-97-47 12:30:005.28[facility] ZzptvsnCFQFZFNLGN5687-79-25 12:30:0012.7[facility] WqyaejiPXJIFLIIIV5503-28-73 12:30:001+ *ABN*(03/05/16 7:30 AM)[facility] OtrhqfaZOFZHSULDH5139-31-61 12:30:000.1[facility]annHEMATOLOGY 2016-03-05 12:30:000.7[facility] BlxyszvOEOEPCRNUE1872-64-24 12:30:000.1[facility] YmonhcqDNZKWTJIHQ9789-56-73 12:30:007.5[facility] GjoucjpMBBMVMLCCC1455-55-36 12:30:001.emorial FkykesuXIAQAXZZIN7334-10-45 12:30:001.2[facility] YYKTEKLLSI8005-74-18 12:30:000.6[facility] RcsgjnxLMAEHCNAVE3033-70-54 12:30:00 75.1[facility] HybcfckQVHCBYJAAJ2170-31-90 12:30:007.4[facility] HermannHEMATOLOGY 2016-03-05 12:30:0015.7[facility] MZIAU5668-15-85 13:22:00None Seen (03/02/16 8:22 AM)[facility] OQNKT7493-58-89 13:22:00None Seen (03/02/16 8:22 AM)[facility] GKAFH7884-40-13 13:22:00 Test Item Value Reference Range Interpretation Comments UA pH (test code = UA pH) 6.0 1 5.0-8.0 [facility] IBGDP7830-83-55 13:22:00Negative *NA*(03/02/16 8:22 AM) [facility] YFPFY6411-70-35 13:22:00Yellow *NA*(03/02/16 8:22 AM) [facility] FXKCP9606-53-03 13:22:00Clear (03/02/16 8:22 AM) [facility] THTHH3627-34-70 13:22:00 Test Item Value Reference Range Interpretation Comments UA Spec Grav (test code = UA Spec 1.015 1 Grav) [facility] DCIBB7839-78-86 13:22:00Negative (03/02/16 8:22 AM) [facility] LUKVO0276-17-58 13:22:000.2[facility] VKMGZ6703-59-68 13:22:00Negative (03/02/16 8:22 AM)[facility] WXRLZ7201-94-76 13:22:00Negative (03/02/16 8:22 AM)[facility] TEEJP1415-94-70 13:22:00None Seen (03/02/16 8:22 AM)[facility] XHFXM4875-37-75 13:22:00None Seen (03/02/16 8:22 AM)[facility] RWDIO1681-11-88 13:22:00 Test Item Value Reference Range Interpretation Comments UA pH (test code = UA pH) 6.0 1 5.0-8.0 [facility] VMMDI2382-73-86 13:22:00Negative *NA*(03/02/16 8:22 AM) [facility] VIMOH1187-16-59 13:22:00Yellow *NA*(03/02/16 8:22 AM) [facility] QZHIZ8594-03-23 13:22:00Clear (03/02/16 8:22 AM) [facility] WCDHW6830-49-64 13:22:00 Test Item Value Reference Range Interpretation Comments UA Spec Grav (test code = UA Spec 1.015 1 Grav) [facility] QGXVA5881-71-87 13:22:00Negative (03/02/16 8:22 AM) [facility] EIHWX9293-99-69 13:22:000.2[facility] DXAUJ9484-94-86 13:22:00Negative (03/02/16 8:22 AM)[facility] ISSYT4262-47-96 13:22:00Negative (03/02/16 8:22 AM)[facility]annCHEM PANEL 2016-03-02 10:41:000.7[facility]annCHEM VGGJK9997-11-48 10:41:004.6[facility]annCHEM IAVUR2907-26-12 10:41:0016[facility]annCHEM XXGLV1956-30-29 10:41:0010.4[facility]annCHEM JJTIM2373-27-92 10:41:008.0[facility]annCHEM AGRNA2407-92-66 10:41:000.3[facility]annCHEM DBLID9324-20-43 10:41:008.7 [facility]annCHEM QAXSP6645-34-91 10:41:0026[facility]annCHEM PANEL 2016-03-02 10:41:55277Oiiacnhc HermannCHEM KBUJX0695-04-17 10:41:77205Mselaxfo HermannCHEM RIVAK6344-26-49 10:41:004.4[facility]annCHEM CSIEQ0542-32-32 10:41:0083[facility]annCHEM GVTWM6334-66-24 10:41:0013[facility]annCHEM UOGUW8766-95-55 10:41:001.07[facility]annCHEM ECHJH5522-61-83 10:41:0017 [facility]annCHE[facility] EHUQM1336-56-14 10:41:20761Qvelqrgy HermannCHEM PANEL 2016-03-02 10:41:42585Vsqxodyl HermannCHEM EKKOE4535-17-41 10:41:003.4[facility]annCHEM ZYEVZ7200-48-26 10:41:0033[facility]annCHEM GMFBY8029-28-85 10:41:96327Fubawwem NzyzxotSTHJPCRVEL9144-33-89 10:41:000.1[facility] ZGYXNXTLIV5709-16-57 10:41:001+ *ABN*(03/02/16 5:41 AM)[facility]annHEMATOLOGY 2016-03-02 10:41:006.7[facility] ImkmvysXDPKLXKKMA2816-78-76 10:41:0021.9[facility] LjxxidtPATXYNTVWG6532-52-02 10:41:001.5[facility] PhgesfdOTNYCPLKGX3179-13-53 10:41:0069.1[facility] OpxavahJEDKPASWNR5086-33-24 10:41:000.8[facility] BOPEWGDDMT0821-96-05 10:41:002.6[facility] EazirztKYBRHDQUYY6189-38-00 10:41:000.2 [facility] LuelbomUXGMOJEXJQ5438-40-53 10:41:008.1[facility]annHEMATOLOGY 2016-03-02 10:41:000.8[facility] ObduxujCSSTRIPAYH1047-03-84 10:41:0011.8[facility] JuaedcjBPUKUIJEMX2946-36-54 10:41:0037.4[facility] XuokvnmWEJOGNLYWG4389-25-58 10:41:005.18[facility] PgrgpslQMDSZWNRKL6488-12-42 10:41:0012.5[facility] DUOCMSMDHH2494-99-38 10:41:00 Test Item Value Reference Range Interpretation Comments MCH (test code = MCH) 24.1 pg 27.0-31.0 [facility] HcwyjviRZBGCKVDER3049-35-21 10:41:0016.7[facility]annHEMATOLOGY 2016-03-02 10:41:0033.4[facility] MsccwtsMULGXQFKTZ4699-27-47 10:41:0072.1[facility] UvbbaosNKCOXVPVDV0165-61-73 10:41:007.7[facility] PjrdxtmGOADPPRZOU8745-11-65 10:41:39354Ymejpatr HermannCHEM OELFR5071-59-29 10:41:000.7[facility]annCHEM XURWP5675-38-19 10:41:004.6[facility]annCHEM WLZHL3763-95-90 10:41:0016 [facility]annCHEM TXUHL3494-61-13 10:41:0010.4[facility] HermannCHEM PANEL 2016-03-02 10:41:008.0[facility]annCHEM PJNLS1572-24-83 10:41:000.3[facility] HermannCHEM AOSOX5733-36-90 10:41:008.7[facility]annCHEM AEBBR3288-12-69 10:41:0026[facility]annCHEM ZKMMN7345-77-99 10:41:70970Hrosfydm HermannCHEM WSFYL5912-84-11 10:41:03724Acphltvw HermannCHEM HLZCB1381-14-64 10:41:004.4 [facility]annCHEM MGWVU6924-13-58 10:41:0083[facility]annCHEM PANEL 2016-03-02 10:41:0013[facility]annCHEM HVFEF0914-79-60 10:41:001.07[facility]annCHEM EHCFF1154-62-67 10:41:0017[facility]annCHEM XOGCJ3685-88-76 10:41:86821Pzjribec HermannCHEM RGCST8743-23-58 10:41:61322Wrujkykx HermannCHEM WCQFS2536-64-30 10:41:003.4[facility]annCHEM KGVSF6639-16-07 10:41:0033 [facility]annCHEM VWYJO9287-33-40 10:41:81941Hbainszc HermannHEMATOLOGY 2016-03-02 10:41:000.1[facility] MpumavwBGCSQOTDES7869-89-92 10:41:001+ *ABN*(03/02/16 5:41 AM)[facility] SvzdhziSNDIGCTFXX0891-29-90 10:41:006.7[facility] OuepeuhCJECCIPAIP3621-45-85 10:41:0021.9[facility] HlbktgeKDIEOJDABC2647-15-12 10:41:001.5[facility] JymwbnvPLRWHRRXLF8478-82-99 10:41:0069.1[facility] JAKVFEKEHE9107-90-03 10:41:000.8[facility] OsbrkpqKIDADYHNDI5044-87-94 10:41:002.6 [facility] PnnrglbPWOPAMCHOS9301-18-97 10:41:000.2[facility] HermannHEMATOLOGY 2016-03-02 10:41:008.1[facility] LqoawhkJLMSKFSBIE5456-36-26 10:41:000.8[facility] QiqotvzLLYCJVTJXM1929-26-35 10:41:0011.8[facility] CvxccnzNIVIJVKUSE8441-42-67 10:41:0037.4[facility] JolkymhJANTKCOBFT0264-57-99 10:41:005.18[facility] DIKVKLHTAV6328-40-39 10:41:0012.5[facility] OuvdvqoGACMYHYCNA5657-74-16 10:41:00 Test Item Value Reference Range Interpretation Comments MCH (test code = MCH) 24.1 pg 27.0-31.0 [facility] AvlowdmIAVPYUXMXB0432-87-54 10:41:0016.7[facility] HermannHEMATOLOGY 2016-03-02 10:41:0033.4[facility] WkrpkxcTQZVYIAJAJ9837-31-91 10:41:0072.1[facility] DxpkkozLQSZAOSNAX8268-31-93 10:41:007.7[facility] YcbnmtrFWELMNPPCZ8185-35-18 10:41:55486Jhvncyii MmlaswrHDLKAGJZUOZZ9846-21-57 14:27:004.4[facility] XXKLNKJWACQY1765-31-11 14:27:61760Dpzftjnb GmjdcinOPIHFDTJVYBE6653-07-53 14:27:12524Qfvfcwgx RjufxqjXWNVYXXGCVSY9517-43-32 14:27:06990Xveaddoc [facility] XGPXOKRAPMFP5548-70-52 14:27:000.88[facility] OeibmfrVWMRBRLIRULH3676-43-24 14:27:0010[facility] AeghuzhQNAGGXGKRWZN9069-09-65 14:27:65588Gbfazmgu [facility] YUAICIYPGEGO7986-76-41 14:27:008.8[facility] WdbyxhoJWHCJEZUJSEZ7730-60-89 14:27:0024[facility] BxovigrLPMMBGYKAXAO9687-24-54 14:27:0012.4[facility] LOTYAPQBAT0914-23-58 14:27:0016.3[facility] IpwbfzoEFWRLJJRLA4272-45-96 14:27:00 273[facility] NalultpIQDPJEFABS5976-82-82 14:27:007.5[facility] HermannHEMATOLOGY 2016-02-19 14:27:0012.8[facility] AjwerrxTAEXWOOHSP5605-87-91 14:27:005.31[facility] WfginyqWPTAESUOSY6351-08-92 14:27:0011.1[facility] UwnagmqYECQOXGJVF1206-77-78 14:27:0072.6[facility] JzxidpzQNIGHIRHUT8392-26-73 14:27:0038.6[facility] LLGRAAYNBU5822-49-65 14:27:00 Test Item Value Reference Range Interpretation Comments MCH (test code = MCH) 24.1 pg 27.0-31.0 [facility] KlaxbbeCDSLKMLLGB8726-78-09 14:27:0033.1[facility] HermannELECTROLYTES 2016-02-19 14:27:004.4[facility] GuzadhlBKQBYMYSFSDO5639-14-14 14:27:34093Tkarqfko HgtvjneHTTZIIPHBHIL2191-18-86 14:27:72805Lemuowjc NumzklgSIDBWDPHMCNM6470-91-78 14:27:40597Xxhzxkxg YhkugtxRUKHLZOQEKUX5318-51-04 14:27:000.88[facility] ECMZIOHFTHJJ2604-32-05 14:27:0010[facility] JptjfzdFOQVQUXOUTBL3683-48-89 14:27:00 103[facility] MtobexwOWPHKUQTTKJU5835-75-02 14:27:008.8[facility] GBVYFRUUOMAV6405-56-99 14:27:0024[facility] ZfcxbgnAOUHPDBALRPH3158-26-66 14:27:00 12.4[facility] BopiqhxBHEYULRPPX5658-22-38 14:27:0016.3[facility]annHEMATOLOGY 2016-02-19 14:27:23444Fdutcyhz HauwgzxLRVBTNPOKG9962-43-71 14:27:007.5[facility] JjohuezXQJPFKZJUN4533-11-48 14:27:0012.8[facility] MkzhtrmXWJYQWKRST4244-96-85 14:27:005.31[facility] VtbywjcFOYKOHEZEL2382-92-69 14:27:0011.1[facility] GMJQPOJUEE4890-05-47 14:27:0072.6[facility] TlzlsgnFMRUQAHMNT5347-82-20 14:27:00 38.6[facility] DsdtvxiPJTRSEGQEY6732-44-35 14:27:00 Test Item Value Reference Range Interpretation Comments MCH (test code = MCH) 24.1 pg 27.0-31.0 [facility] PwwemfcFUZSLJCNBH1573-88-83 14:27:0033.1[facility] HermannCARDIAC ENZYMES 2016-02-18 10:20:45<0.02[facility] VrrfzzhVWHSRVWKQX9334-18-72 10:20:457.9 [facility] LcamfqrFRPYPFOYXC0779-59-75 10:20:4520.8[facility]annHEMATOLOGY 2016-02-18 10:20:4569.1[facility] RdoqmynUFACSFQVQM6587-04-53 10:20:452.2[facility] CfwmhkaWBERCXMUVP3335-41-15 10:20:450.8[facility] NisjmlsGBJDPAPDRC9943-44-74 10:20:451.6[facility] KcagupqCHFBQDWKCY3130-63-90 10:20:457.5[facility] YTWFUPMXBP9717-19-02 10:20:450.6[facility] PipdyvmQYWLIQMXLC4516-79-90 10:20:451+ *ABN*(02/18/16 5:20 AM)[facility] AisgosaMAQDZEHJFA7097-53-98 10:20:450.1[facility] KjsnfuoQUXBOMZJZL9237-85-91 10:20:450.2[facility] WwvcxxxRPNBTDLWJH2606-53-29 10:20:454.91[facility] IfdrswyYDCTFSVWNT9416-10-39 10:20:4510.8[facility] IZNDJMPHDC1385-93-96 10:20:45 Test Item Value Reference Range Interpretation Comments MCH (test code = MCH) 24.1 pg 27.0-31.0 [facility] GukxrqbPTPXJGXOLF3765-78-71 10:20:4573.1[facility]annHEMATOLOGY 2016-02-18 10:20:4535.9[facility] UwtiuykNVIWBVXVJZ5830-98-04 10:20:4511.8[facility] GgjiizbWDFKMBBICP5544-73-00 10:20:457.4[facility] EuxovinLNHZWYHVCP5322-10-42 10:20:4516.3[facility] YvzceczGTBKPXDNJU3092-22-66 10:20:4533.0[facility] MXRVAZPTLV0825-37-07 10:20:75483Wcbdlsrz HermannCARDIAC DDLIRPY0513-54-46 10:20:45<0.02[facility] RaqofsrIAUKVTTJUT1344-71-76 10:20:457.9[facility] GWNSXKZNHE0254-46-83 10:20:4520.8[facility] MnaataaLJUIVOBRRY5013-54-25 10:20:45 69.1[facility] AyfcavoREEUVVZUUD7025-03-50 10:20:452.2[facility]annHEMATOLOGY 2016-02-18 10:20:450.8[facility] GjjefveFWEHYDETQR3793-86-17 10:20:451.6[facility] QswgcvbAAVUUBKAGQ5775-12-09 10:20:457.5[facility] OjxzeraSVLXYZTBCH7429-81-92 10:20:450.6[facility] LeddjjtZFTTXDYLHK8140-20-14 10:20:451+ *ABN*(02/18/16 5:20 AM)[facility] VlszzjrWBGIFRYFWZ4756-43-98 10:20:450.1[facility]annHEMATOLOGY 2016-02-18 10:20:450.2[facility] CtxhpvbCDPQZNKKEX1959-13-59 10:20:454.91[facility] VgmahekPQUSSMANMY7612-20-88 10:20:4510.8[facility] HuwwbaxCUITYVPDDM2925-70-42 10:20:45 Test Item Value Reference Range Interpretation Comments MCH (test code = MCH) 24.1 pg 27.0-31.0 [facility] ZyofkamSOYLXTUBMS5848-12-91 10:20:4573.1[facility]annHEMATOLOGY 2016-02-18 10:20:4535.9[facility] QjqftmiZKKLBEIYRJ0620-19-19 10:20:4511.8[facility] XsbguuoMVJONRLDAG0312-48-54 10:20:457.4[facility] NmnlfxsFSFGPPHJGR1389-47-02 10:20:4516.3[facility] EsscyncZDFEHTGWLR0826-01-72 10:20:4533.0[facility] JXTANFQBIW2999-64-90 10:20:61506Ocfgzeet HermannCARDIAC IJJQTSZ9091-49-44 21:41:44<0.02[facility] HermannCHEM HLVKI3640-07-76 21:41:44<0.05[facility]annCARDIAC JUCEABE2633-55-76 21:41:44<0.02[facility] HermannCHEM PANEL 2016-02-17 21:41:44<0.05[facility]annCARDIAC AITDPZY3890-61-37 15:34:00 <0.02[facility]annCARDIAC QTDSTYV5719-57-22 15:34:00<0.02[facility]annURINE AND SXPCC2244-55-02 11:27:00None Seen (02/17/16 6:27 AM)[facility] AJGWF2967-23-45 11:27:00None Seen (02/17/16 6:27 AM)[facility] AXHKD7748-83-24 11:27:00Negative (02/17/16 6:27 AM)[facility] MGKLP2370-47-17 11:27:000.2[facility] STOOL 2016-02-17 11:27:00Negative (02/17/16 6:27 AM)[facility] STOOL 2016-02-17 11:27:00 Test Item Value Reference Range Interpretation Comments UA Spec Grav (test code = UA Spec 1.025 1 Grav) [facility] ESKBC2848-55-76 11:27:00Clear (02/17/16 6:27 AM) [facility] FJYTX0658-75-95 11:27:00Yellow *NA*(02/17/16 6:27 AM) [facility] NCOUW3232-03-49 11:27:00Negative *NA*(02/17/16 6:27 AM) [facility] XQSEM1664-47-59 11:27:00Negative (02/17/16 6:27 AM) [facility] GGLTR8612-98-49 11:27:00 Test Item Value Reference Range Interpretation Comments UA pH (test code = UA pH) 6.0 1 5.0-8.0 [facility] GJGAW6645-14-07 11:27:00None Seen (02/17/16 6:27 AM) [facility] OWKMB9205-71-42 11:27:00None Seen (02/17/16 6:27 AM) [facility] EZFNK6392-14-13 11:27:00Negative (02/17/16 6:27 AM) [facility] AOPIQ1969 11:27:000.2[facility] QIAOB0949-55-39 11:27:00Negative (02/17/16 6:27 AM)[facility] LGBJN0176-28-24 11:27:00 Test Item Value Reference Range Interpretation Comments UA Spec Grav (test code = UA Spec 1.025 1 Grav) [facility] MUEUN6772-97-73 11:27:00Clear (02/17/16 6:27 AM) [facility] TKXAF0472-70-83 11:27:00Yellow *NA*(02/17/16 6:27 AM) [facility] GPMGM4904-50-86 11:27:00Negative *NA*(02/17/16 6:27 AM) [facility] QCBCS9647-91-10 11:27:00Negative (02/17/16 6:27 AM) [facility] WIRSF7522-25-11 11:27:00 Test Item Value Reference Range Interpretation Comments UA pH (test code = UA pH) 6.0 1 5.0-8.0 [facility]annCARDIAC QWUCQIV8962-28-72 10:50:001.6[facility]annCARDIAC QZDZFSD5037-02-22 10:50:000.9[facility]annCARDIAC KEPFOIP7808-07-00 10:50:00 58[facility]annCHEM JSYTD3289-38-89 10:50:0093[facility]annCHEM PANEL 2016-02-17 10:50:0033[facility]annCHEM PXDTK7901-39-38 10:50:0023[facility]annCHEM FJKDJ8113-70-67 10:50:008.8[facility]annCHEM HUWUW1830-10-15 10:50:004.0[facility]annCHEM FLZGP2200-48-53 10:50:09605Zugokmas HermannCHEM IIQMW4487-93-26 10:50:000.97[facility]annCHEM HBPEN6372-03-19 10:50:60753 [facility]annCHEM LSGWD0153-55-95 10:50:0011[facility]annCHEM PANEL 2016-02-17 10:50:003.4[facility] HermannCHEM WVFGP2534-42-36 10:50:13110Vwewoqjk HermannCHEM FNZAD0095-39-07 10:50:000.5[facility] HermannCHEM BRGJV7007-18-68 10:50:87527Rpitxlkk HermannCHEM SCWWA8828-86-40 10:50:0015.0[facility] HermannCHEM EYELI1809-79-55 10:50:0011[facility]annCHEM JNGQT6135-89-52 10:50:008.0 [facility]annCHEM CVBFX0853-52-79 10:50:0016[facility] HermannCHEM PANEL 2016-02-17 10:50:004.6[facility] HermannCHEM PQRBU2179-32-63 10:50:000.7[facility] DgbetpmAXJQIRFUJX7714-69-98 10:50:001+ *ABN*(02/17/16 5:50 AM)[facility] JYSIBVOBLD3374-57-71 10:50:000.1[facility] PrvjcweUWQIRZWEWT9771-44-05 10:50:000.5 [facility] SmfiqygNBJNSCWMTR5451-17-93 10:50:002.4[facility] HermannHEMATOLOGY 2016-02-17 10:50:000.8[facility] OoqbuzfCEBBGAXAHS5365-06-69 10:50:000.1[facility] PgyujurZYLJISAYDK2778-44-10 10:50:008.7[facility] BxckdkzEBGYDWEFGS2724-58-72 10:50:001.2[facility] CckyyypAVOJZNRKOM7503-88-53 10:50:0072.1[facility] YJLQWORFGP2704-13-24 10:50:0019.8[facility] OhukpawBGREPJZVXK3587-29-47 10:50:00 6.4[facility] UfngoozVFETKBEOFZ1133-97-41 10:50:66840Jpccvcde HermannHEMATOLOGY 2016-02-17 10:50:00 Test Item Value Reference Range Interpretation Comments MCH (test code = MCH) 24.1 pg 27.0-31.0 [facility] ItevgerZPAHTHIUWM3562-10-80 10:50:0033.3[facility] HermannHEMATOLOGY 2016-02-17 10:50:007.6[facility] RngrrcjSQHIBTVICF5080-11-55 10:50:0016.3[facility] HrvjhdjJBFAUKVMUD7070-31-79 10:50:0013.1[facility] SleoynqELLSIDVVNZ2344-35-95 10:50:0039.5[facility] UxpomgbQWQYOFFOVF0535-54-59 10:50:0012.0[facility] MQPQVSNNCU6151-68-02 10:50:005.45[facility] MbegtsuVLDRPVBYTY2031-16-39 10:50:00 72.6[facility] HermannCARDIAC FSBJMAC6877-49-62 10:50:001.6[facility] HermannCARDIAC UJWGRSO5961-32-11 10:50:000.9[facility] HermannCARDIAC FNHRMUO8694-90-88 10:50:00 58[facility] HermannCHEM ZHRFB3618-25-12 10:50:0093[facility] HermannCHEM PANEL 2016-02-17 10:50:0033[facility] HermannCHEM CKMYL8897-69-89 10:50:0023[facility] HermannCHEM BKXAI8462-30-96 10:50:008.8[facility] HermannCHEM YGPED1058-97-50 10:50:004.0[facility] HermannCHEM ETLON1198-53-39 10:50:98627Sukeuhwh HermannCHEM ARTZS0042-02-10 10:50:000.97[facility] HermannCHEM UISWO2246-94-06 10:50:14176 [facility]annCHEM THHZI7695-64-24 10:50:0011[facility] HermannCHEM PANEL 2016-02-17 10:50:003.4[facility] HermannCHEM ZOZVW7253-18-15 10:50:07413Ohsrjexy HermannCHEM STKEK8528-38-02 10:50:000.5[facility] HermannCHEM LTESE7628-16-36 10:50:79332Yxxdlgfz HermannCHEM WYZVC4227-28-40 10:50:0015.0[facility] HermannCHEM QKRLG5778-65-08 10:50:0011[facility] HermannCHEM AYZKB1646-29-09 10:50:008.0 [facility]annCHEM PANEM7287-68-83 10:50:0016[facility] HermannCHEM PANEL 2016-02-17 10:50:004.6[facility] HermannCHEM GZOLP7764-14-99 10:50:000.7[facility] CneluroBYANLKBJVY8159-82-96 10:50:001+ *ABN*(02/17/16 5:50 AM)[facility] HUGPXFIWFI0879-18-31 10:50:000.1[facility] XyyrsmfTSWFHUHDZE5289-04-68 10:50:000.5 [facility] UsnmpvoGNLBMVPIOP0830-00-95 10:50:002.4[facility] HermannHEMATOLOGY 2016-02-17 10:50:000.8[facility] RsublruPUQVJSXBOO8236-53-90 10:50:000.1[facility] SysyehkTASXSUWREJ8120-67-63 10:50:008.7[facility] UdcfvruXZWLXWDMVO0352-55-07 10:50:001.2[facility] HdayfvuEENKFUUXQE6736-86-50 10:50:0072.1[facility] FNRABZAXWC4099-51-74 10:50:0019.8[facility] ZzzchptNSXIVDAYGD2867-35-61 10:50:00 6.4[facility] YtefcvgTDENUAUJXU6930-18-05 10:50:85853Etcftqqo HermannHEMATOLOGY 2016-02-17 10:50:00 Test Item Value Reference Range Interpretation Comments MCH (test code = MCH) 24.1 pg 27.0-31.0 [facility] TyncohxELNWIYBCYR2408-94-23 10:50:0033.3[facility] HermannHEMATOLOGY 2016-02-17 10:50:007.6[facility] IqqdqvsTVKNWZXEVP8121-50-25 10:50:0016.3[facility] NxqgdvjUAMFRKPOXH3628-30-07 10:50:0013.1[facility] KqrhakqTCTFQQBZOW5620-70-77 10:50:0039.5[facility] CmimzgnWPAHUFIOJM9743-31-87 10:50:0012.0[facility] SADOFEWQVX8945-28-39 10:50:005.45[facility] LeiydeqUQFTNUURFK7980-31-59 10:50:00 72.6[facility]
[2020-12-24 10:19] LABS: Protime INR 1.98
[2020-12-24] MEDS ORDERED: FAMOTIDINE 20 MG/2 ML VIAL IV ONE (10:24)
[2020-12-24] MEDS ORDERED: MORPHINE 4 MG/ML SYR ONE ×2 (10:24→13:14)
[2020-12-24] MEDS ORDERED: ONDANSETRON 4 MG/2 ML VIAL ONE ×2 (10:25→11:19)
--- NOTE | 2020-12-24 10:25 | RAD REPORT ---
EXAM DESCRIPTION: RAD - Chest Single View - 12/24/2020 9:55 am CLINICAL HISTORY: CHEST PAIN COMPARISON: Portable January 2020 TECHNIQUE: AP portable chest image was obtained 12/24/2020 9:55 am . FINDINGS: Lungs are clear. Heart and vasculature are normal. No measurable pleural effusion and no p neumothorax. No acute bony abnormality seen. No acute aortic findings suspected. Left-sided pacemaker in place. IMPRESSION: No acute cardiopulmonary process. No significant change from comparison study.
[2020-12-24 10:31] LABS: ALT/SGPT 41 U/L (12-78); AST/SGOT 18 U/L (15-37); Albumin 3.3 g/dL (3.4-5.0); Alkaline Phosphatase 162 U/L (45-117); BUN Blood Urea Nitrogen 21 mg/dL (7-18); Bicarbonate 29 mmol/L (21-32); Bilirubin Direct 0.2 mg/dL (0-0.2); Bilirubin Total 0.5 mg/dL (0.2-1.0); Glucose Level 149 mg/dL (74-106); Magnesium 2.5 mg/dL (1.8-2.4); NT PRO-BNP 27 pg/mL (<125); Potassium 4.5 mmol/L (3.5-5.1); Protein, Total 8.7 g/dL (6.4-8.2); Sodium Level 136 mmol/L (136-145); Troponin (Emerg Dept Use Only) < 0.02 ng/mL (0.0-0.045)
--- NOTE | 2020-12-24 10:42 | EDPHYS ---
Physician Documentation [facility] Name: Marquis Nelson Age: 50 yrs Sex: Male : 1970 Arrival Date: 12/24/2020 Time: 09:27 Bed 5 Private MD: ED Physician Jose Nolasco HPI: 12/24 10:12 This 50 yrs old Male presents to ER via Ambulatory with complaints of Chest ap Pain. 10:12 The patient or guardian reports chest pain that is located primarily in the substernal ap area. Onset: just prior to arrival, 45 hour(s) ago. The pain does not radiate. Associated signs and symptoms: Pertinent positives: shortness of breath. The chest pain is described as a heaviness, a pressure. Duration: The patient or guardian reports a single episode, that is still ongoing. Modifying factors: The symptoms are alleviated by nothing. the symptoms are aggravated by nothing. Severity of pain: At its worst the pain was moderate in the emergency department the pain is unchanged. The patient has experienced similar episodes in the past, multiple times. Historical: - Allergies: 09:35 Ibuprofen; ll1 09:35 Neurontin; ll1 09:35 Remeron; ll1 09:35 Skelaxin; ll1 09:35 spironolactone; ll1 09:35 Stadol; ll1 09:35 Flomax; ll1 09:35 Beta Blockers (sensitive/hypotension); ll1 09:35 tramadol; ll1 09:35 Trazodone; ll1 - PMHx: 09:35 Anemia; CAD; Myocardial infarction; ADD/ADHD; Pulmonary Embolism; Atrial Fib; GERD; ll1 CHF; Anxiety; Pacemaker; High Cholesterol; AAA; - Immunization history:: Flu vaccine is up to date. - Social history:: Smoking status: Patient denies any tobacco usage or history of. - Family history:: not pertinent. ROS: 10:12 Constitutional: Negative for fever, chills, and weight loss, Eyes: Negative for injury, ap pain, redness, and discharge, ENT: Negative for injury, pain, and discharge, Neck: Negative for injury, pain, and swelling, Respiratory: Negative for shortness of breath, cough, wheezing, and pleuritic chest pain, Abdomen/GI: Negative for abdominal pain, nausea, vomiting, diarrhea, and constipation, Back: Negative for injury and pain, : Negative for injury, bleeding, discharge, and swelling, MS/Extremity: Negative for injury and deformity, Skin: Negative for injury, rash, and discoloration, Neuro: Negative for headache, weakness, numbness, tingling, and seizure, Psych: Negative for depression, anxiety, suicide ideation, homicidal ideation, and hallucinations, Allergy/Immunology: Negative for hives, rash, and allergies, Endocrine: Negative for neck swelling, polydipsia, polyuria, polyphagia, and marked weight changes, Hematologic/Lymphatic: Negative for swollen nodes, abnormal bleeding, and unusual bruising. 10:12 Cardiovascular: Positive for chest pain, of the chest. 10:12 MS/extremity: Negative for swelling, tenderness. Exam: 10:14 Constitutional: This is a well developed, well nourished patient who is awake, alert, ap and in no acute distress. Head/Face: Normocephalic, atraumatic. Eyes: Pupils equal round and reactive to light, extra-ocular motions intact. Lids and lashes normal. Conjunctiva and sclera are non-icteric and not injected. Cornea within normal limits. Periorbital areas with no swelling, redness, or edema. ENT: Nares patent. No nasal discharge, no septal abnormalities noted. Tympanic membranes are normal and external auditory canals are clear. Oropharynx with no redness, swelling, or masses, exudates, or evidence of obstruction, uvula midline. Mucous membranes moist. Neck: Trachea midline, no thyromegaly or masses palpated, and no cervical lymphadenopathy. Supple, full range of motion without nuchal rigidity, or vertebral point tenderness. No Meningismus. Chest/axilla: Normal chest wall appearance and motion. Nontender with no deformity. No lesions are appreciated. Cardiovascular: Regular rate and rhythm with a normal S1 and S2. No gallops, murmurs, or rubs. Normal PMI, no JVD. No pulse deficits. Respiratory: Lungs have equal breath sounds bilaterally, clear to auscultation and percussion. No rales, rhonchi or wheezes noted. No increased work of breathing, no retractions or nasal flaring. Abdomen/GI: Soft, non-tender, with normal bowel sounds. No distension or tympany. No guarding or rebound. No evidence of tenderness throughout. Back: No spinal tenderness. No costovertebral tenderness. Full range of motion. Male : Normal genitalia with no discharge or lesions. Skin: Warm, dry with normal turgor. Normal color with no rashes, no lesions, and no evidence of cellulitis. MS/ Extremity: Pulses equal, no cyanosis. Neurovascular intact. Full, normal range of motion. Neuro: Awake and alert, GCS 15, oriented to person, place, time, and situation. Cranial nerves II-XII grossly intact. Motor strength 5/5 in all extremities. Sensory grossly intact. Cerebellar exam normal. Normal gait. Psych: Awake, alert, with orientation to person, place and time. Behavior, mood, and affect are within normal limits. 10:14 Musculoskeletal/extremity: Extremities: all appear grossly normal, with no appreciated pain with palpation, ROM: no acute changes, Circulation is intact in all extremities. Sensation intact. Compartment Syndrome exam of affected extremity: is normal. DVT Exam: No signs of deep vein thrombosis. no pain, no swelling, no tenderness, negative Homans' sign noted on exam, no appreciated bluish discoloration, no erythema, no increased warmth. 10:19 ECG was reviewed by the Attending Physician. ap Vital Signs: 09:37 BP 134 / 71; Pulse 72; Resp 20; Temp 97.8; Pulse Ox 98% on R/A; Weight 129.27 kg; ll1 Height 5 ft. 10 in. (177.80 cm); Pain 8/10; 13:18 BP 121 / 57; Pulse 66; Resp 15 S; Pulse Ox 97% on R/A; jd3 09:37 Body Mass Index 40.89 (129.27 kg, 177.80 cm) ll1 MDM: 09:39 Patient medically screened. ap 10:15 Differential diagnosis: abnormal EKG, acute myocardial infarction, acute pericarditis, ap anxiety, congestive heart failure costochondritis, esophagitis, gastritis, hiatal hernia, myocarditis, pancreatitis, pleurisy, pulmonary embolus, stable angina, unstable angina. HEART Score: History: Moderately Suspicious (1), ECG: Non specific repolarization disturbance / LBTB / PM (1), Age: > 45 and < 65 years (1), Risk Factors: > or = 3 Risk factors for atherosclerotic disease (2), [Hypercholesterolemia] [Hypertension] [+ Family HX] [Obesity] Troponin: < or = 1 x Normal Limit (0). The patient was not given aspirin in the Emergency Department. Not indicated due to patient's past medical history. The patient's deep vein thrombosis risk score was calculated as follows: Total Score: 0. This patient was found to be at low risk for a deep vein thrombosis by using the Well's assessment criteria. The patient's pulmonary embolism risk score was calculated as follows: Total Score: 0-2 points. This patient was found to be at low risk for a pulmonary embolism by using the Well's assessment criteria. REBEL Risk Score: 1 - Three or more CAD risk factors, 1- Known CAD, 1 - Recent [<24hrs] Severe Angina, TOTAL SCORE = 3. Data reviewed: vital signs, nurses notes, lab test result(s), EKG, radiologic studies, CT scan, plain films. Data interpreted: sanitarian: rate is 72 beats/min, rhythm is regular, Pulse oximetry: on room air is 98 %. Test interpretation: by ED physician or midlevel provider: ECG, plain radiologic studies. Counseling: I had a detailed discussion with the patient and/or guardian regarding: the historical points, exam findings, and any diagnostic results supporting the discharge/admit diagnosis, the presence of at least one elevated blood pressure reading (>120/80) during this emergency department visit, lab results, radiology results, the need for further work-up and treatment in the hospital. 12/24 09:38 Order name: Basic Metabolic Panel jd3 12/24 09:38 Order name: CBC with Diff; Complete Time: 10:20 jd3 12/24 09:38 Order name: LFT's; Complete Time: 10:34 jd3 12/24 09:38 Order name: Magnesium; Complete Time: 10:34 jd3 12/24 09:38 Order name: NT PRO-BNP; Complete Time: 10:34 jd3 12/24 09:38 Order name: PT-INR; Complete Time: 10:34 jd3 12/24 09:38 Order name: Troponin (emerg Dept Use Only); Complete Time: 10:34 jd3 12/24 09:38 Order name: XRAY Chest (1 view); Complete Time: 10:34 jd3 12/24 09:38 Order name: Basic Metabolic Panel; Complete Time: 10:34 EDMS 12/24 09:40 Order name: Lipase; Complete Time: 13:31 [facility] 12/24 10:35 Order name: Troponin I: at noon [facility] 12/24 11:00 Order name: SARS-COV-2 RT PCR; Complete Time: 13:31 [facility] 12/24 09:38 Order name: EKG; Complete Time: 09:39 [facility] 12/24 09:38 Order name: Cardiac monitoring; Complete Time: 09:38 [facility] 12/24 09:38 Order name: EKG - Nurse/Tech; Complete Time: 10:00 [facility] 12/24 09:38 Order name: IV Saline Lock; Complete Time: 10:00 [facility] 12/24 09:38 Order name: Labs collected and sent; Complete Time: 10:00 [facility] 12/24 09:38 Order name: O2 Per Protocol; Complete Time: 09:38 [facility] 12/24 09:38 Order name: O2 Sat Monitoring; Complete Time: 09:38 [facility] 12/24 10:52 Order name: CONS Physician Consult [facility] 12/24 10:52 Order name: Heart Healthy [facility] 12/24 10:52 Order name: EKG Electrocardiogram [facility] EC:19 Rate is 70 beats/min. Rhythm is regular. QRS [place] is Normal. PA interval is normal. QRS ap interval is normal. QT interval is normal. No Q waves. T waves are Normal. No ST changes noted. Clinical impression: Abnormal EKG without significant change and No evidence of ischemia. Interpreted by me. Reviewed by me. Administered Medications: 10:17 Drug: morphine 4 mg Route: IVP; Site: right antecubital; jd3 11:15 Follow up: Response: No adverse reaction; RASS: Alert and Calm (0) jd3 10:17 Drug: Zofran (Ondansetron) 4 mg Route: IVP; Site: right antecubital; jd3 11:15 Follow up: Response: No adverse reaction jd3 10:17 Drug: Pepcid (famotidine) 20 mg Route: IVP; Site: right antecubital; jd3 11:15 Follow up: Response: No adverse reaction jd3 11:05 Drug: morphine 4 mg Route: IVP; Site: right antecubital; jd3 12:00 Follow up: Response: No adverse reaction; RASS: Alert and Calm (0) jd3 11:05 Drug: Zofran (Ondansetron) 4 mg Route: IVP; Site: right antecubital; jd3 12:00 Follow up: Response: No adverse reaction jd3 13:05 Drug: morphine 4 mg Route: IVP; Site: right antecubital; jd3 13:24 Follow up: Response: No adverse reaction jd3 Disposition Summary: 12/24/20 10:42 Hospitalization Ordered Hospitalization Status: Observation ap Provider: Dorene Rosa cha Condition: Stable ap Problem: new ap Symptoms: have improved ap Bed/Room Type: Standard ap Location: Telemetry/MedSurg (observation)(12/24/20 12:53) eb Room Assignment: [facility](12/24/20 12:53) eb Diagnosis - Chest pain, unspecified ap - Angina pectoris, unspecified ap - Essential (primary) hypertension ap - Obesity, unspecified ap Forms: - Medication Reconciliation Form ap - SBAR form ap Signatures: Dispatcher [employer] EDMS Jose Nolasco MD MD cha Davies, Jonathon, RN RN jd3 Lilibeth Ricci Lynsay, RN RN ll1 Corrections: (The following items were deleted from the chart) 10:07 09:41 CORONAVIRUS+MR.LAB.BRZ ordered. EDDE EDMS 12:00 10:42 Telemetry/MedSurg (observation) ap eb 12:00 10:42 ap eb 12:00 12:00 eb eb 12:53 12:00 [facility] ER HOLD eb eb 12:53 12:00 ERHOLD- eb eb
--- NOTE | 2020-12-24 10:42 | ER ---
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 Pain radiates into ll1 back. Slightly lightheaded. Coronavirus screen: Client denies travel out of the [place] in the last 14 days. At this time, the client does not indicate any symptoms associated with coronavirus-19. Ebola Screen: Patient denies travel to an Ebola-affected area in the 21 days before illness onset. Initial Sepsis Screen: Does the patient meet any 2 criteria? No. Patient's initial sepsis screen is negative. Does the patient have a suspected source of infection? No. Patient's initial sepsis screen is negative. Risk Assessment: Do you want to hurt yourself or someone else? Patient reports no desire to harm self or others. Onset of symptoms was December 24, 2020. 09:37 Method Of Arrival: Ambulatory ll1 09:37 Acuity: THANH 3 ll1 Historical: - Allergies: 09:35 Ibuprofen; ll1 09:35 Neurontin; ll1 09:35 Remeron; ll1 09:35 Skelaxin; ll1 09:35 spironolactone; ll1 09:35 Stadol; ll1 09:35 Flomax; ll1 09:35 Beta Blockers (sensitive/hypotension); ll1 09:35 tramadol; ll1 09:35 Trazodone; ll1 - PMHx: 09:35 Anemia; CAD; Myocardial infarction; ADD/ADHD; Pulmonary Embolism; Atrial Fib; GERD; ll1 CHF; Anxiety; Pacemaker; High Cholesterol; AAA; - Immunization history:: Flu vaccine is up to date. - Social history:: Smoking status: Patient denies any tobacco usage or history of. - Family history:: not pertinent. Screenin:38 Abuse screen: Denies threats or abuse. Nutritional screening: No deficits noted. ll1 Tuberculosis screening: No symptoms or risk factors identified. 13:25 Fall Risk IV access (20 points). Ambulatory Aid- None/Bed Rest/Nurse Assist (0 pts). jd3 Gait- Normal/Bed Rest/Wheelchair (0 pts) Mental Status- Oriented to own ability (0 pts). Total Uribe Fall Scale indicates No Risk (0-24 pts). Assessment: 09:35 General: Appears in no apparent distress. uncomfortable, Behavior is calm, cooperative, jd3 appropriate for age. Pain: Complains of pain in chest Pain does not radiate. Pain began 30 min ago. Neuro: Level of Consciousness is awake, alert, obeys commands, Oriented to person, place, time, situation. Cardiovascular: Reports chest pain, Capillary refill < 3 seconds Patient's skin is warm and dry. Rhythm is regular. Respiratory: Airway is patent Respiratory effort is even, unlabored, Respiratory pattern is regular, symmetrical, Denies cough, shortness of breath. GI: No signs and/or symptoms were reported involving the gastrointestinal system. : No signs and/or symptoms were reported regarding the genitourinary system. EENT: No signs and/or symptoms were reported regarding the EENT system. Derm: Skin is intact, Skin is dry, Skin is normal, Skin temperature is warm. Musculoskeletal: Circulation, motion, and sensation intact. Range of motion: intact in all extremities. 10:30 Reassessment: Patient appears in no apparent distress at this time. Patient and/or jd3 family updated on plan of care and expected duration. Pain level reassessed. Patient is alert, oriented x 3, equal unlabored respirations, skin warm/dry/pink. Patient states feeling better. 11:30 Reassessment: Patient appears in no apparent distress at this time. No changes from jd3 previously documented assessment. Patient and/or family updated on plan of care and expected duration. Pain level reassessed. Patient is alert, oriented x 3, equal unlabored respirations, skin warm/dry/pink. 12:30 Reassessment: Patient appears in no apparent distress at this time. No changes from jd3 previously documented assessment. Patient and/or family updated on plan of care and expected duration. Pain level reassessed. Patient is alert, oriented x 3, equal unlabored respirations, skin warm/dry/pink. 13:21 Reassessment: Patient appears in no apparent distress at this time. No changes from jd3 previously documented assessment. Patient and/or family updated on plan of care and expected duration. Pain level reassessed. Patient is alert, oriented x 3, equal unlabored respirations, skin warm/dry/pink. Vital Signs: 09:37 BP 134 / 71; Pulse 72; Resp 20; Temp 97.8; Pulse Ox 98% on R/A; Weight 129.27 kg; ll1 Height 5 ft. 10 in. (177.80 cm); Pain 8/10; 13:18 BP 121 / 57; Pulse 66; Resp 15 S; Pulse Ox 97% on R/A; jd3 09:37 Body Mass Index 40.89 (129.27 kg, 177.80 cm) ll1 ED Course: 09:27 Patient arrived in ED. ds1 09:31 Ramírez Stephens, NAVJOT is Primary Nurse. jd3 09:37 Arm band placed on Patient placed in an exam room, on a stretcher. ll1 09:38 Triage completed. ll1 09:38 Jose Nolasco MD is Attending Physician. ap 09:55 XRAY Chest (1 view) In Process Unspecified. EDMS 10:00 EKG done, by ED staff, reviewed by Jose Nolasco MD. dh3 10:00 Inserted saline lock: 22 gauge in right antecubital area, using aseptic technique. jd3 Blood collected. Patient maintains SpO2 saturation greater than 95% on room air. 10:38 Dorene Rosa MD is Hospitalizing Provider. ap 13:25 Patient has correct armband on for positive identification. Bed in low position. Call jd3 light in reach. Side rails up X 1. lunchroom monitor on. Pulse ox on. NIBP on. 13:25 No provider procedures requiring assistance completed. Patient admitted, IV remains in jd3 place. Administered Medications: 10:17 Drug: morphine 4 mg Route: IVP; Site: right antecubital; jd3 11:15 Follow up: Response: No adverse reaction; RASS: Alert and Calm (0) jd3 10:17 Drug: Zofran (Ondansetron) 4 mg Route: IVP; Site: right antecubital; jd3 11:15 Follow up: Response: No adverse reaction jd3 10:17 Drug: Pepcid (famotidine) 20 mg Route: IVP; Site: right antecubital; jd3 11:15 Follow up: Response: No adverse reaction jd3 11:05 Drug: morphine 4 mg Route: IVP; Site: right antecubital; jd3 12:00 Follow up: Response: No adverse reaction; RASS: Alert and Calm (0) jd3 11:05 Drug: Zofran (Ondansetron) 4 mg Route: IVP; Site: right antecubital; jd3 12:00 Follow up: Response: No adverse reaction jd3 13:05 Drug: morphine 4 mg Route: IVP; Site: right antecubital; jd3 13:24 Follow up: Response: No adverse reaction jd3 Outcome: 10:42 Decision to Hospitalize by Provider. ap 13:24 Admitted to Tele accompanied by tech, via wheelchair, room 206, with chart, Report jd3 called to Argelia MORFIN 13:24 Condition: stable 13:24 Instructed on the need for admit, Demonstrated understanding of instructions. 13:31 Patient left the ED. tr6 Signatures: Dispatcher [employer] Jose Joel MD MD cha Sanford, Demi ds1 Eladia Daniels 3 Ramírez Stephens RN RN jd3 Angelina Guaman RN RN ll1 Debra Machuca RN RN tr6
[2020-12-24] MEDS ORDERED: ACETAMINOPHEN 500 MG TAB PO PRN (10:49)
[2020-12-24] MEDS ORDERED: MORPHINE 4 MG/ML SYR IV PRN (10:49)
[2020-12-24] MEDS ORDERED: HYDROCODONE/APAP 10/325 TAB PO PRN (10:52)
[2020-12-24 13:40] VITALS: BP 121/57; O2SAT 97
[2020-12-24 14:27] VITALS: BMI 40.8
--- NOTE | 2020-12-24 14:48 | CON ---
Date of Consultation: 12/24/[address] Rosa's service on 12/24/2020. Reason For Consultation: Stable angina. History Of Present Illness: The patient is a 50-year-old white male, has a very extensive past medic al history. He has a history of abdominal aortic aneurysm, coronary artery disease, status post sten t, has history of congestive heart failure, pacemaker placement, dyslipidemia, obesity, sleep apnea, atrial fibrillation, and history of pulmonary embolus in the past. He also has a history of bipolar disorder. He is a diabetic. He comes in with substernal chest pain that radiated to the left arm. That lasted about an hour or 2 without any nausea, vomiting, diaphoresis, PND, orthopnea, pedal edema , palpitations, or syncope. By the time I saw him, he has already ruled out for an NC. His creatini ne is 1.61. EKG is unremarkable. Chest x-ray is unremarkable. BNP is normal. Troponin is normal. He is pain-free now. Denied fever or chills. Past Medical History: As stated above. Allergies: TO NEURONTIN, METOPROLOL, FLOMAX, AND ALDACTONE. Review of Systems: Negative. Social History: Negative. Family History: Noncontributory. Medications: At home include amiodarone, Abilify, Lipitor, Plavix, Lasix, insulin, metoprolol, magne sium, metformin, Protonix, potassium, Ranexa, Klonopin, Coumadin, and allopurinol. Physical Examination: Vital Signs: Stable. He was afebrile. He was in sinus rhythm. General: He was in no acute distress. HEENT: Negative. Neck: Supple without any bruit, lymphadenopathy, JVD, or thyromegaly. Chest: Clear to auscultation and percussion. Cardiac: Revealed a regular rhythm and rate. No murmurs, gallops, or rubs. Abdomen: Obese, but benign. Extremities: Revealed no clubbing, cyanosis, or edema. Showed good pulses distally. Neurologic: He was nonfocal. Skin: Dry and intact. Diagnostic Data: As stated earlier. Impression And Plan: 1.Coronary artery disease, status post percutaneous coronary intervention with symptoms suggestive o f worsening coronary artery disease. The patient is on Ranexa already. He is on Lipitor. He is int olerant to beta sharon. He is maxed out on the Ranexa. I think will be very reasonable to have Mr. Nelson go to another catheterization sometime down the road. He will need to stop his Coumadin. He will need to get Mucomyst before the procedure. The case was discussed with Dr. Rosa. I will deal with that as an outpatient as tomorrow is a holiday. Patient can go home whenever it is okay with Dr Ovidio Rosa. 2.His other medical problems include history of chronic systolic congestive heart failure that seems to be stable. 3.History of coronary artery disease, status post stent. 4.History of pulmonary embolus, on Coumadin. 5.History of atrial fibrillation, on Coumadin. 6.History of pacer, permanent pacemaker placement. 7.Abdominal aortic aneurysm. 8.He also has a history of diabetes, dyslipidemia, sleep apnea, obesity, gastroesophageal reflux dis ease, all of that is stable at this point. Again, as mentioned earlier, the patient can go home for outpatient catheterization. I will hold his Coumadin as outpatient depending what the catheterizatio n was going to be. I will give him Mucomyst before the procedure. CYNTHIA/CHELSI Voice ID: [id number] Report ID: [id number]
[2020-12-24] MEDS ORDERED: MORPHINE 4 MG/ML SYR IV ONE (16:35)
[2020-12-24 17:58] VITALS: TEMP 98.3
[2020-12-24] MEDS ORDERED: METOPROLOL TAR 50 MG TAB PO SCH (18:00)
--- NOTE | 2020-12-25 02:15 | P.SSS ---
Patient History Date of Service: 12/25/20 Reason for admission: Chest pain rule out acute coronary syndrome History of Present Illness: Patient is a 50-year-old gentleman who came to the hospital with chest discomfort. Patient with frequent admissions for stable angina. Patient has been started on cardiac meds. He normally states that the only thing that helps him is morphine. He stopped his Suboxone to take his morphine today. At this time, we will repeat troponin in if it is negative this evening then we will discharge him home. I did speak with Cardiology and they would recommend discharge with outpatient follow for heart catheterization. Allergies butorphanol tartrate [From Stadol] Allergy (Verified 01/28/20 21:04) Unknown gabapentin [From Neurontin] Allergy (Verified 01/28/20 21:04) Unknown metaxalone [From Skelaxin] Allergy (Verified 01/28/20 21:04) Unknown metoprolol Allergy (Verified 01/28/20 21:04) severe hypotension mirtazapine [From Remeron] Allergy (Verified 01/28/20 21:04) Itching/Hives/Rash quetiapine [From Seroquel] Allergy (Verified 01/28/20 21:04) Shortness of breath spironolactone Allergy (Verified 01/28/20 21:04) Shortness of breath tamsulosin [From Flomax] Allergy (Verified 01/28/20 21:04) Unknown tramadol Allergy (Verified 01/28/20 21:04) Shortness of breath trazodone Allergy (Verified 01/28/20 21:04) Shortness of breath Beta Blockers (sen Allergy (Uncoded 01/28/20 21:04) Unknown Home Medications: Amiloride HCl 10 mg PO BID 05/11/19 Atorvastatin Calcium [Lipitor] 40 mg PO BEDTIME 05/11/19 Buprenorphine HCl/Naloxone HCl [Suboxone 8 mg-2 mg Sl Film] 1 tab SL BID 05/11/19 Clopidogrel Bisulfate [Plavix*] 75 mg PO DAILY 05/11/19 Docusate [Colace Cap*] 100 mg PO BIDP PRN 05/11/19 Magnesium Oxide [Magnesium] 400 mg PO DAILY 05/11/19 Metformin ER [Glucophage ER*] 500 mg PO DAILY 05/11/19 Pantoprazole [Protonix Tab*] 40 mg PO BID 05/11/19 Ranolazine [Ranexa] 1,000 mg PO BID 05/11/19 allopurinoL [Zyloprim*] 300 mg PO DAILY 05/11/19 clonazePAM [Klonopin*] 1 mg PO TID 05/11/19 Aripiprazole [Abilify] 1 tab PO DAILY 01/28/20 Desvenlafaxine Succinate [Pristiq] 200 mg PO DAILY 01/28/20 Insulin Glargine,Hum.rec.anlog [Lantus] 30 units SQ DAILY 01/28/20 Folic Acid 1 tab PO DAILY 01/29/20 Bumetanide [Bumex] 1.5 mg PO BID 12/24/20 Diltiazem HCl [Diltiazem 24Hr Cd] 120 mg PO DAILY 12/24/20 Dulaglutide [Trulicity] 2 ml SQ EVERY 7TH DAY 12/24/20 Empagliflozin [Jardiance] 1 tab PO DAILY 12/24/20 Nitroglycerin 0.4 mg SL SEECOM PRN 12/24/20 Potassium Chloride 40 meq PO BID 12/24/20 Promethazine Tab [Phenergan*] 25 mg PO Q6H PRN 12/24/20 Rivaroxaban [Xarelto] 20 mg PO DAILY 12/24/20 methocarbamoL [Robaxin*] 750 mg PO BID 12/24/20 - Past Medical/Surgical History Has patient received pneumonia vaccine in the past: No Diabetic: Yes -: HTN -: Nephrolithiasis -: Obstructive sleep apnea -: Diabetes mellitus type 2 -: Coronary artery disease, stent x2 -: Abdominal aortic aneurysm (3.1 cm) -: Paroxysmal atrial fibrillation -: Hyperlipidemia -: CHF -: Former smoker -: Chronic pain -: Pulmonary embolism -: Lithotripsy -: Heart catheterization, stent to the right RCA -: right bundle branch block -: pacemaker -: hernia repair Psychosocial/ Personal History: He is 24 years, has no children, he does not work. - Family History Father -: Heart disease, Hypertension, Lung disease Notes: at age 69 CHF, asthma, COPD Mother -: Hypertension Sister -: Hypertension Notes: brain aneurysm - Social History Smoking Status: Former smoker Alcohol use: No CD- Drugs: No Caffeine use: No Place of Residence: Home Review of Systems 10-point ROS is otherwise unremarkable Physical Examination - Vital Signs Temperature: 98.3 F Blood Pressure: 121/57 Pulse: 66 Respirations: 18 Pulse Ox (%): 97 - Physical Exam General: Alert, In no apparent distress, Oriented x3 HEENT: Atraumatic, PERRLA, Mucous membr. moist/pink, EOMI, Sclerae nonicteric Neck: Supple, 2+ carotid pulse no bruit, No LAD, Without JVD or thyroid abnormality Respiratory: Clear to auscultation bilaterally, Normal air movement Cardiovascular: Regular rate/rhythm, Normal S1 S2, Systolic murmur Gastrointestinal: Normal bowel sounds, Soft and benign, Non-distended, No tenderness Musculoskeletal: No clubbing, No swelling, No tenderness Integumentary: No rashes Neurological: Normal gait, Normal speech, Normal strength at 5/5 x4 extr, Normal tone, Sensation intact, Cranial nerves 3-12 intact, Normal affect Lymphatics: No axilla or inguinal lymphadenopathy - Studies Laboratory Data (last 24 hrs) 12/24/20 09:56: Lipase 57 L 12/24/20 09:56: PT 22.9 H, INR 1.98 12/24/20 09:56: WBC 9.80, Hgb 12.1 L, Hct 36.9 L, Plt Count 340 12/24/20 09:56: Sodium 136, Potassium 4.5, BUN 21 H, Creatinine 1.61 H, Glucose 149 H, Magnesium 2.5 H, Total Bilirubin 0.5, AST 18, ALT 41, Alkaline Phosphatase 162 H - Diagnosis (Problem(s)) (1) Chest pain, rule out acute myocardial infarction Status: Acute (2) Atrial fibrillation Onset Date: 05/24/16 Status: Chronic Qualifiers: (3) Chronic pain Onset Date: 03/17/17 Status: Chronic Qualifiers: (4) Coronary artery disease Onset Date: 05/24/16 Status: Chronic Qualifiers: (5) Diabetes mellitus Onset Date: 09/16/16 Status: Chronic Qualifiers: (6) Diabetes mellitus Onset Date: 05/24/16 Status: Suspected Qualifiers: Treatment Summary: Patient did well during hospital stay. Patient was ruled out for acute coronary syndrome. Serial troponins were negative. At this time, patient is stable for discharge and Cardiology will follow him up as an outpatient and arrange for cardiac catheterization. Patient has stable angina and he will continue with his home medications at this time. Cardiology will reassess in the outpatient setting and see if this needs to be readjusted. - Disposition Disposition: ROUTINE DISCHARGE Condition: GOOD Diet: AHA Activity: Fall precautions Critical Care: No Time Spent Managing Pts Care (In Minutes): 45
[2020-12-25] MEDS ORDERED: ENOXAPARIN 40 MG/0.4 ML SQ SCH (09:00)
[2020-12-25] MEDS ORDERED: ASPIRIN 325 MG TAB PO SCH (09:00)
--- NOTE | 2020-12-25 10:31 | EKG ---
Test Date: 2020-12-24 Test Time: 09:52:00 [employer] Slugs Inspector: CHRISTY MEASUREMENT RESULTS: Intervals: Rate: 70 GA: 204 QRSD: 144 QT: 442 QTc: 477 Cecil: P: 48 GA: 204 QRS: -19 T: 19 INTERPRETIVE STATEMENTS: Sinus rhythm with fusion complexes Right bundle branch block Inferior infarct, age undetermined Anterolateral infarct, age undetermined Abnormal ECG Compared to ECG 01/28/2020 15:01:09 Fusion complex(es) now present Left ventricular hypertrophy no longer present Myocardial infarct finding still present Electronically Signed On 12-25-20 10:30:07 CDT by Ole Tesfaye
== END 2020-12-24 19:00 | disposition home or self-care (01) ==
LOC: ER 09:26 → ERHOLD 11:00 → 2ND 13:17
PROVIDERS: ADMIT Hospitalist; ATTEND Hospitalist
DX: I25.118 Atherosclerotic heart disease of native coronary artery with other forms of angina pectoris (principal); I11.0 Hypertensive heart disease with heart failure; I50.22 Chronic systolic (congestive) heart failure; I48.0 Paroxysmal atrial fibrillation; I71.4 Abdominal aortic aneurysm, without rupture; I45.10 Unspecified right bundle-branch block; G47.33 Obstructive sleep apnea (adult) (pediatric); E78.5 Hyperlipidemia, unspecified; E78.00 Pure hypercholesterolemia, unspecified; E11.9 Type 2 diabetes mellitus without complications; I25.2 Old myocardial infarction; G89.29 Other chronic pain; K21.9 Gastro-esophageal reflux disease without esophagitis; D64.9 Anemia, unspecified; F90.9 Attention-deficit hyperactivity disorder, unspecified type; F41.9 Anxiety disorder, unspecified; F31.9 Bipolar disorder, unspecified; Z20.822 Contact with and (suspected) exposure to COVID-19; Z95.5 Presence of coronary angioplasty implant and graft; Z95.0 Presence of cardiac pacemaker; Z86.711 Personal history of pulmonary embolism; Z87.891 Personal history of nicotine dependence; Z88.6 Allergy status to analgesic agent; Z88.8 Allergy status to other drugs, medicaments and biological substances; Z79.01 Long term (current) use of anticoagulants; Z79.02 Long term (current) use of antithrombotics/antiplatelets; Z79.4 Long term (current) use of insulin; Z82.49 Family history of ischemic heart disease and other diseases of the circulatory system; Z82.5 Family history of asthma and other chronic lower respiratory diseases
CPT/HCPCS: 93005; 85025; 80048; 36415; 83735; 85610; 80076; 84484 ×3; 83690; 83880; 71045; 96375; 96374; 99285; U0003; J2405 ×2; G0378 ×2

== ENCOUNTER 2021-05-06 16:46 | Inpatient (IN) | payer OTHER ==
[2021-05-06] MEDS ORDERED: ONDANSETRON 4 MG/2 ML VIAL ONE ×2 (17:13→19:50)
[2021-05-06] MEDS ORDERED: MORPHINE 4 MG/ML SYR ONE ×2 (17:13→18:04)
[2021-05-06 17:34] LABS: Absolute Lymphocytes (CBC) 1.8 K/uL (0.7-4.9); Basophils % 0.3 % (0-1.3); Hematocrit 38.1 % (39.6-49.0); Lymphocytes % 14.3 % (15.3-44.8); MPV 7.4 fL (7.6-11.3); RBC Red Blood Cell Count 5.11 M/uL (4.33-5.43)
[2021-05-06 17:46] LABS: Albumin 3.3 g/dL (3.4-5.0); Bilirubin Direct 0.2 mg/dL (0-0.2); Bilirubin Total 0.3 mg/dL (0.2-1.0); Potassium 4.1 mmol/L (3.5-5.1); Protein, Total 8.6 g/dL (6.4-8.2)
--- NOTE | 2021-05-06 18:01 | RAD REPORT ---
EXAM DESCRIPTION: CTAbdomen Pelvis Wo Contrast - 05/06/2021 5:27 pm CLINICAL HISTORY: RUQ pain COMPARISON: Stone Protocol dated 11/29/2017; Stone Protocol dated 07/07/2017; Abdomen Pelvis Wo Contr ast dated 07/02/2017; Stone Protocol dated 02/08/2017 TECHNIQUE: CT of the abdomen and pelvis was performed. All CT scans are performed using dose optimization technique as appropriate and may include automated exposure control or mA/KV adjustment according to patient size. FINDINGS: Lower chest: Coronary artery stents. Pacemaker lead. Liver: Hepatic steatosis. Biliary: Cholelithiasis. There is trace gallbladder gas. Stomach: No significant focal abnormality. Duodenum: No significant focal abnormality. Pancreas: No significant abnormality. Spleen: No significant abnormality. Adrenal: No suspicious lesions. Kidney/ureter: No hydronephrosis. No renal calculi. Retroperitoneum: No retroperitoneal adenopathy. Vascular: No aneurysm. Ectasia of the abdominal aorta. Bowel: No significant focal abnormality. Normal appendix. Peritoneum: No ascites or free air. Bladder: Grossly unremarkable. Reproductive: No adnexal masses. Bones: No acute fracture. Other: n/a IMPRESSION: Cholelithiasis. Trace gallbladder gas could represent early emphysematous cholecystitis.
[2021-05-06] MEDS ORDERED: NA CHLORIDE 0.9% 1,000 ML ONE (18:34)
[2021-05-06] MEDS ORDERED: HYDROMORPHONE HCL 2 MG/ML inj ONE ×2 (19:03→19:50)
--- NOTE | 2021-05-06 19:12 | RAD REPORT ---
EXAM DESCRIPTION: US - Abdomen Exam Limited - 05/06/2021 6:43 pm CLINICAL HISTORY: RUQ pain COMPARISON: Abdomen Pelvis Wo Contrast dated 05/06/2021 FINDINGS: Echogenic foci within nondependent portions of the gallbladder with ring down artifact con sistent with some gas. Cholelithiasis is noted. The sonographic Santo sign was negative. The gallbla dder wall is not thickened. The common bile duct has a normal caliber. Increased echogenicity liver c onsistent with hepatic steatosis . IMPRESSION: Gas again noted to be within the gallbladder lumen (as well as cholelithiasis) which can be seen with emphysematous cholecystitis despite no sonographic evidence of acute cholecystitis.
[2021-05-06] MEDS ORDERED: Meropenem 1000 MG/VIAL IV ONE (19:19)
--- NOTE | 2021-05-06 19:21 | ER ---
Nurse's Notes [facility] Name: Marquis Nelson Age: 51 yrs Sex: Male : 1970 Arrival Date: 05/06/2021 Time: 16:53 Bed 7 Private MD: Diagnosis: Acute cholecystitis Presentation: 05/06 17:02 Chief complaint: Patient states: RUQ pain X 3 hours, +nausea, no vomiting or diarrhea , iw no urinary symptoms , denies chest pain. Coronavirus screen: At this time, the client does not indicate any symptoms associated with coronavirus-19. Ebola Screen: Patient negative for fever greater than or equal to 101.5 degrees Fahrenheit, and additional compatible Ebola Virus Disease symptoms Patient denies exposure to infectious person. Patient denies travel to an Ebola-affected area in the 21 days before illness onset. No symptoms or risks identified at this time. Initial Sepsis Screen: Does the patient meet any 2 criteria? No. Patient's initial sepsis screen is negative. Does the patient have a suspected source of infection? No. Patient's initial sepsis screen is negative. Risk Assessment: Do you want to hurt yourself or someone else? Patient reports no desire to harm self or others. Onset of symptoms was May 06, 2021. 17:02 Method Of Arrival: Ambulatory iw 17:02 Acuity: THANH 3 iw Historical: - Allergies: 17:06 Beta Blockers (sensitive/hypotension); iw 17:06 Flomax; iw 17:06 Ibuprofen; iw 17:06 Neurontin; iw 17:06 Remeron; iw 17:06 Skelaxin; iw 17:06 spironolactone; iw 17:06 Stadol; iw 17:06 tramadol; iw 17:06 Trazodone; iw - Home Meds: 17:08 allopurinol 300 mg Oral tab 1 tab once daily [Active]; amlodipine 5 mg tab 1 tab twice iw a day [Active]; aripiprazole 10 mg Oral tab 1 tab once daily [Active]; atorvastatin 40 mg Oral tab 1 tab nightly [Active]; clonazepam 1 mg Oral tab 1 tab 3 times per day [Active]; cyanocobalamin (vitamin B-12) 1,000 mcg/mL injection soln 1 mL [Active]; desvenlafaxine succinate 100 mg Oral 2 tabs once daily [Active]; docusate sodium 100 mg Oral cap 1 cap 2 times per day [Active]; 17:10 dulaglutide 0.75 mg/ 0.5 ml subcutaneous 0.5 mL once wkly [Active]; ferrous sulfate 325 iw mg (65 mg iron) Oral tab three times a day [Active]; folic acid 1 mg Oral tab 1 tab once daily [Active]; Lasix 80 mg Oral tab 1 tab 2 times per day [Active]; magnesium oxide 400 mg Oral tab daily [Active]; metformin 500 mg Oral Tb24 1 tab once daily [Active]; methocarbamol 750 mg Oral tab twice a day [Active]; metolazone 2.5 mg Oral tab once daily [Active]; nitroglycerin 0.4 mg SL subl 1 tab every 5 minutes [Active]; pantoprazole 40 mg Oral TbEC 1 tab 2 times per day [Active]; Plavix 75 mg Oral tab 1 tab once daily [Active]; polyethylene glycol 3350 17 gram/dose Oral powd once daily [Active]; potassium chloride 20 mEq Oral TbTQ 3 tab 3 times per day [Active]; ranolazine 1000 mg Oral 2 times per day [Active]; 21:49 Warfarin Oral 1 tab [Active]; Vitamin D3 2,000 unit Oral tab daily [Active]; bs2 testosterone 1.25 gram/ actuation (1 %) transdermal glpm once daily [Active]; Suboxone 8-2 mg sublingual film 1 film twice a day [Active]; - PMHx: 17:09 AAA; ADD/ADHD; Anemia; Anxiety; Atrial Fib; CAD; CHF; GERD; High Cholesterol; iw Myocardial infarction; Pacemaker; Pulmonary Embolism; - Immunization history:: Client reports having NOT received the Covid vaccine. - Social history:: Smoking status: Patient denies any tobacco usage or history of. Screenin:22 Abuse screen: Denies threats or abuse. Denies injuries from another. Nutritional jt3 screening: No deficits noted. Tuberculosis screening: No symptoms or risk factors identified. Fall Risk None identified. Assessment: 17:22 General: Appears uncomfortable, Behavior is calm, cooperative. Pain: Complains of pain jt3 in abdomen Pain does not radiate. Pain currently is 8 out of 10 on a pain scale. Quality of pain is described as throbbing. Neuro: No deficits noted. Cardiovascular: No deficits noted. Respiratory: No deficits noted. GI: Bowel sounds present X 4 quads. Abd is soft Abdomen is tender to palpation in right upper quadrant Pt. reports right upper quadrant abdominal pain that started 3-4 hours ago. Pt. endorses nausea as well. Vital Signs: 17:02 BP 135 / 72; Pulse 83; Resp 16; Temp 99.5; Pulse Ox 98% on R/A; Weight 126.55 kg; iw Height 5 ft. 10 in. (177.80 cm); Pain 8/10; 18:22 BP 117 / 64; Pulse 74; Resp 17; Pulse Ox 97% on R/A; jt3 21:53 BP 113 / 56 LA Sitting (auto/lg); Pulse 69 MON; Resp 17 S; Temp 98.2(O); Pulse Ox 97% bs2 on R/A; Pain 8/10; 17:02 Body Mass Index 40.03 (126.55 kg, 177.80 cm) iw ED Course: 16:53 Patient arrived in ED. am2 16:57 Jaun Fraser NP is PHCP. pm1 16:57 oJse Nolasco MD is Attending Physician. pm1 17:04 Triage completed. iw 17:06 Jose Rafael Hooker, NAVJOT is Primary Nurse. jt3 17:07 Arm band placed on. iw 17:22 Patient has correct armband on for positive identification. Bed in low position. Call jt3 light in reach. Side rails up X2. Pulse ox on. NIBP on. 17:22 No provider procedures requiring assistance completed. Inserted saline lock: 20 gauge jt3 in right antecubital area, using aseptic technique. Blood collected. 17:27 Abdomen In Process Unspecified. EDMS 18:42 US Abdomen Limited In Process Unspecified. EDMS 19:20 Walker Calvin MD is Hospitalizing Provider. pm1 19:29 Primary Nurse role handed off by Jose Rafael Hooker, NAVJOT mw2 19:44 Ernestine Be, NAVJOT is Primary Nurse. bs2 19:47 XRAY Chest (1 view) In Process Unspecified. EDMS 19:57 Magnesium Sent. bs2 19:57 NT PRO-BNP Sent. bs2 19:57 PT-INR Sent. bs2 19:57 Troponin (emerg Dept Use Only) Sent. bs2 19:57 Blood Culture Sent. bs2 19:57 Blood Culture Adult (2) Sent. bs2 20:00 initiated a transfer with Jasmyne from [facility] [place]. mw2 20:08 SARS-COV-2 RT PCR Sent. bs2 20:15 faxed over patient's demographic sheet to [facility]. mw2 20:50 [facility] denied due to capacity. mw2 21:51 Patient admitted, IV remains in place. bs2 Administered Medications: 17:21 Drug: Zofran (Ondansetron) 4 mg Route: IVP; Site: right antecubital; jt3 19:17 Follow up: Response: No adverse reaction bs2 17:21 Drug: morphine 4 mg Route: IVP; Site: right antecubital; jt3 19:17 Follow up: Response: No adverse reaction; Pain is unchanged, physician notified bs2 18:07 Drug: morphine 4 mg Route: IVP; Site: right antecubital; jt3 19:17 Follow up: Response: No adverse reaction bs2 18:08 CANCELLED (Physician Discretion): NS 0.9% 1000 ml IV at 125 ml/hr continuous pm1 18:41 Drug: NS 0.9% 1000 ml Route: IV; Rate: 75 ml/hr; Site: right antecubital; jt3 21:58 Follow up: IV Status: Infusion continued upon admission bs2 19:05 Drug: Dilaudid (HYDROmorphone) 1 mg Route: IVP; Site: right antecubital; bs2 20:16 Follow up: Response: No adverse reaction bs2 19:06 CANCELLED (Physician Discretion): Zosyn (piperacillin-tazobactam) 3.375 grams IVPB once pm1 over 60 mins; (mix in NS 100 mL) 20:15 Drug: Dilaudid (HYDROmorphone) 1 mg Route: IVP; Site: right antecubital; bs2 21:58 Follow up: Response: No adverse reaction bs2 20:15 Drug: Zofran (Ondansetron) 4 mg Route: IVP; Site: right antecubital; bs2 21:58 Follow up: Response: No adverse reaction bs2 20:16 Drug: Meropenem 2 grams Route: IV; Rate: calculated rate; Site: right antecubital; bs2 20:47 Follow up: IV Status: Completed infusion; IV Intake: 100ml bs2 20:47 Drug: vancoMYCIN 1 grams Route: IVPB; Infused Over: 2 hrs; Site: right antecubital; bs2 21:58 Follow up: IV Status: Completed infusion bs2 Intake: 20:47 IV: 100ml; Total: 100ml. bs2 Outcome: 19:21 Decision to Hospitalize by Provider. pm1 21:51 Admitted to Med/surg accompanied by tech, via wheelchair, room 214, with chart, Report bs2 called to 214 21:51 Condition: improved 21:51 Instructed on the need for admit, Demonstrated understanding of instructions. 22:47 Patient left the ED. mw2 Signatures: Dispatcher [employer] EDMS China Toth RN RN iw Jaun Fraser, RUDY NETWORK CONTRACT MANAGER pm1 Imani De La Cruz am2 Sony Morrison mw2 Ernestine Be RN RN bs2 Jose Rafael Hooker RN RN jt3 Corrections: (The following items were deleted from the chart) 20:06 19:56 CORONAVIRUS+MR.LAB.MERRILLZ drawn and sent. bs2 EDMS
--- NOTE | 2021-05-06 19:22 | EDPHYS ---
Physician Documentation [facility] Name: Marquis Nelson Age: 51 yrs Sex: Male : 1970 Arrival Date: 05/06/2021 Time: 16:53 Bed 7 Private MD: ED Physician Jose Nolasco HPI: 05/06 17:19 This 51 yrs old Male presents to ER via Ambulatory with complaints of pm1 Abdominal Pain - RUQ. 17:19 The patient presents with abdominal pain in the right upper quadrant. Onset: The pm1 symptoms/episode began/occurred 3 hour(s) ago. The symptoms do not radiate. Associated signs and symptoms: Pertinent positives: nausea, Pertinent negatives: chest pain, diarrhea, shortness of breath, vomiting, back pain. The symptoms are described as sharp. Modifying factors: The symptoms are alleviated by nothing, the symptoms are aggravated by nothing. Severity of pain: in the emergency department the pain is unchanged. The patient has not recently seen a physician. Historical: - Allergies: 17:06 Beta Blockers (sensitive/hypotension); iw 17:06 Flomax; iw 17:06 Ibuprofen; iw 17:06 Neurontin; iw 17:06 Remeron; iw 17:06 Skelaxin; iw 17:06 spironolactone; iw 17:06 Stadol; iw 17:06 tramadol; iw 17:06 Trazodone; iw - Home Meds: 17:08 allopurinol 300 mg Oral tab 1 tab once daily [Active]; amlodipine 5 mg tab 1 tab twice iw a day [Active]; aripiprazole 10 mg Oral tab 1 tab once daily [Active]; atorvastatin 40 mg Oral tab 1 tab nightly [Active]; clonazepam 1 mg Oral tab 1 tab 3 times per day [Active]; cyanocobalamin (vitamin B-12) 1,000 mcg/mL injection soln 1 mL [Active]; desvenlafaxine succinate 100 mg Oral 2 tabs once daily [Active]; docusate sodium 100 mg Oral cap 1 cap 2 times per day [Active]; 17:10 dulaglutide 0.75 mg/ 0.5 ml subcutaneous 0.5 mL once wkly [Active]; ferrous sulfate 325 iw mg (65 mg iron) Oral tab three times a day [Active]; folic acid 1 mg Oral tab 1 tab once daily [Active]; Lasix 80 mg Oral tab 1 tab 2 times per day [Active]; magnesium oxide 400 mg Oral tab daily [Active]; metformin 500 mg Oral Tb24 1 tab once daily [Active]; methocarbamol 750 mg Oral tab twice a day [Active]; metolazone 2.5 mg Oral tab once daily [Active]; nitroglycerin 0.4 mg SL subl 1 tab every 5 minutes [Active]; pantoprazole 40 mg Oral TbEC 1 tab 2 times per day [Active]; Plavix 75 mg Oral tab 1 tab once daily [Active]; polyethylene glycol 3350 17 gram/dose Oral powd once daily [Active]; potassium chloride 20 mEq Oral TbTQ 3 tab 3 times per day [Active]; ranolazine 1000 mg Oral 2 times per day [Active]; 21:49 Warfarin Oral 1 tab [Active]; Vitamin D3 2,000 unit Oral tab daily [Active]; bs2 testosterone 1.25 gram/ actuation (1 %) transdermal glpm once daily [Active]; Suboxone 8-2 mg sublingual film 1 film twice a day [Active]; - PMHx: 17:09 AAA; ADD/ADHD; Anemia; Anxiety; Atrial Fib; CAD; CHF; GERD; High Cholesterol; iw Myocardial infarction; Pacemaker; Pulmonary Embolism; - Immunization history:: Client reports having NOT received the Covid vaccine. - Social history:: Smoking status: Patient denies any tobacco usage or history of. ROS: 17:19 Constitutional: Negative for fever, chills, and weight loss, Cardiovascular: Negative pm1 for chest pain, palpitations, and edema, Respiratory: Negative for shortness of breath, cough, wheezing, and pleuritic chest pain. 17:19 Back: Negative for injury and pain, : Negative for injury, bleeding, discharge, and swelling, MS/Extremity: Negative for injury and deformity, Skin: Negative for injury, rash, and discoloration, Neuro: Negative for headache, weakness, numbness, tingling, and seizure. 17:19 Abdomen/GI: Positive for abdominal pain, nausea, of the right upper quadrant, Negative for vomiting, diarrhea. 17:19 All other systems are negative. Exam: 17:19 Constitutional: This is a well developed, well nourished patient who is awake, alert, pm1 and in no acute distress. Head/Face: Normocephalic, atraumatic. 17:19 Back: No spinal tenderness. No costovertebral tenderness. Full range of motion. Skin: Warm, dry with normal turgor. Normal color with no rashes, no lesions, and no evidence of cellulitis. MS/ Extremity: Pulses equal, no cyanosis. Neurovascular intact. Full, normal range of motion. 17:19 Eyes: Exam is negative for acute changes, Extraocular movements: intact throughout, Conjunctiva: no acute changes, no injection, Sclera: no acute changes. 17:19 ENT: Exam is negative for acute changes, Mouth: no acute changes, Lips: normal, moist, Oral mucosa: normal, pink and intact, moist. 17:19 Cardiovascular: Exam negative for acute changes, Rate: normal, Rhythm: regular, Pulses: no pulse deficits are appreciated, Heart sounds: normal, normal S1and S2. 17:19 Respiratory: Exam negative for acute changes, respiratory distress, shortness of breath, Breath sounds: are clear throughout. 17:19 Abdomen/GI: Inspection: obese Palpation: soft, in all quadrants, mild abdominal tenderness, in the right upper quadrant, rebound tenderness, is not appreciated. 17:19 Neuro: Exam negative for acute changes, Orientation: is normal, Mentation: is normal, Motor: is normal, moves all fours, Sensation: is normal, no obvious gross deficits. Vital Signs: 17:02 BP 135 / 72; Pulse 83; Resp 16; Temp 99.5; Pulse Ox 98% on R/A; Weight 126.55 kg; iw Height 5 ft. 10 in. (177.80 cm); Pain 8/10; 18:22 BP 117 / 64; Pulse 74; Resp 17; Pulse Ox 97% on R/A; jt3 21:53 BP 113 / 56 LA Sitting (auto/lg); Pulse 69 MON; Resp 17 S; Temp 98.2(O); Pulse Ox 97% bs2 on R/A; Pain 8/10; 17:02 Body Mass Index 40.03 (126.55 kg, 177.80 cm) iw MDM: 17:03 Patient medically screened. ap 18:04 Data reviewed: vital signs. Data interpreted: Pulse oximetry: on room air is 98 %. pm1 Interpretation: normal. 18:16 Counseling: I had a detailed discussion with the patient and/or guardian regarding: lab pm1 results, radiology results, pending U/S. 19:19 Physician consultation: Josiah Darby MD was contacted at 19:19, regarding consult, pm1 patient's condition, would like admission per Dr. Walker Calvin MD NPO, IV fluids, Abx, Cardiac clearance. 05/06 17:06 Order name: Basic Metabolic Panel; Complete Time: 17:49 pm1 05/06 17:06 Order name: CBC with Diff; Complete Time: 17:49 pm1 05/06 17:06 Order name: Hepatic Function; Complete Time: 17:49 pm1 05/06 17:06 Order name: Lipase; Complete Time: 17:49 pm1 05/06 19:09 Order name: Blood Culture Adult (2) pm1 05/06 19:09 Order name: Blood Culture EDAK 05/06 17:20 Order name: Abdomen ; Complete Time: 18:05 EDAK 05/06 19:18 Order name: Magnesium; Complete Time: 20:13 [facility] 05/06 19:18 Order name: NT PRO-BNP; Complete Time: 20:13 [facility] 05/06 19:18 Order name: PT-INR; Complete Time: 20:22 [facility] 05/06 19:18 Order name: Troponin (emerg Dept Use Only); Complete Time: 20:13 [facility] 05/06 20:06 Order name: SARS-COV-2 RT PCR; Complete Time: 21:05 EDAK 05/06 17:06 Order name: IV Saline Lock; Complete Time: 17:21 pm1 05/06 17:06 Order name: Labs collected and sent; Complete Time: 17:21 pm1 05/06 18:06 Order name: US Abdomen Limited; Complete Time: 19:15 pm1 05/06 19:18 Order name: XRAY Chest (1 view); Complete Time: 20:39 [facility] 05/06 19:18 Order name: EKG; Complete Time: 19:19 [facility] 05/06 18:08 Order name: NPO; Complete Time: 18:15 pm1 05/06 19:18 Order name: Cardiac monitoring; Complete Time: 19:56 [facility] 05/06 19:18 Order name: EKG - Nurse/Tech; Complete Time: 20:15 [facility] 05/06 19:18 Order name: O2 Per Protocol; Complete Time: 19:57 [facility] 05/06 19:18 Order name: O2 Sat Monitoring; Complete Time: 19:57 ap Administered Medications: 17:21 Drug: Zofran (Ondansetron) 4 mg Route: IVP; Site: right antecubital; jt3 19:17 Follow up: Response: No adverse reaction bs2 17:21 Drug: morphine 4 mg Route: IVP; Site: right antecubital; jt3 19:17 Follow up: Response: No adverse reaction; Pain is unchanged, physician notified bs2 18:07 Drug: morphine 4 mg Route: IVP; Site: right antecubital; jt3 19:17 Follow up: Response: No adverse reaction bs2 18:08 CANCELLED (Physician Discretion): NS 0.9% 1000 ml IV at 125 ml/hr continuous pm1 18:41 Drug: NS 0.9% 1000 ml Route: IV; Rate: 75 ml/hr; Site: right antecubital; jt3 21:58 Follow up: IV Status: Infusion continued upon admission bs2 19:05 Drug: Dilaudid (HYDROmorphone) 1 mg Route: IVP; Site: right antecubital; bs2 20:16 Follow up: Response: No adverse reaction bs2 19:06 CANCELLED (Physician Discretion): Zosyn (piperacillin-tazobactam) 3.375 grams IVPB once pm1 over 60 mins; (mix in NS 100 mL) 20:15 Drug: Dilaudid (HYDROmorphone) 1 mg Route: IVP; Site: right antecubital; bs2 21:58 Follow up: Response: No adverse reaction bs2 20:15 Drug: Zofran (Ondansetron) 4 mg Route: IVP; Site: right antecubital; bs2 21:58 Follow up: Response: No adverse reaction bs2 20:16 Drug: Meropenem 2 grams Route: IV; Rate: calculated rate; Site: right antecubital; bs2 20:47 Follow up: IV Status: Completed infusion; IV Intake: 100ml bs2 20:47 Drug: vancoMYCIN 1 grams Route: IVPB; Infused Over: 2 hrs; Site: right antecubital; bs2 21:58 Follow up: IV Status: Completed infusion bs2 Disposition: 05/07 05:51 Co-signature as Attending Physician, Jose Nolasco MD I agree with the assessment and ap plan of care. Disposition Summary: 05/06/21 19:21 Hospitalization Ordered Hospitalization Status: Inpatient Admission pm1 Provider: Walker Calvin pm1 Location: Telemetry/MedSur (Inpatient) pm1 Condition: Stable pm1 Problem: new pm1 Symptoms: have improved pm1 Bed/Room Type: Standard pm1 Room Assignment: 214(05/06/21 21:08) Diagnosis - Acute cholecystitis pm1 Forms: - Medication Reconciliation Form pm1 - SBAR form pm1 Signatures: Dispatcher [employer] EDMS Jose Nolasco MD MD cha Williams, Irene, RN RN iw Papa Niño, SPEEDER OPERATOR-C SPEEDER OPERATOR-Cla1 Marycruz Talavera RN RN cg Jaun Fraser, RUDY BLOCKER AND POLISHER GOLD WHEEL pm1 Ernestine Be RN RN bs2 Jose Rafael Hooker RN RN jt3 Corrections: (The following items were deleted from the chart) 05/06 17:20 17:07 Abdomen Pelvis W Con+CT.RAD.BRZ ordered. EDMS EDMS 18:08 18:08 NS 0.9% 1000 ml IV at 125 ml/hr continuous ordered. pm1 pm1 19:06 19:06 Zosyn (piperacillin-tazobactam) 3.375 grams IVPB once over 60 mins; (mix in NS pm1 100 mL) ordered. pm1 20:06 19:25 CORONAVIRUS+MR.LAB.BRZ ordered. EDMS EDMS 21:08 19:21 pm1 cg
[2021-05-06] MEDS ORDERED: NA CHLORIDE 0.9% 100 ML ONE (19:23)
[2021-05-06] MEDS ORDERED: VANCOMYCIN 1 GM/VIAL ONE (19:23)
[2021-05-06] MEDS ORDERED: NA CHLORIDE 0.9% 250 ML ONE (19:23)
[2021-05-06 20:02] LABS: Magnesium 2.7 mg/dL (1.8-2.4); NT PRO-BNP 88 pg/mL (<125); Troponin (Emerg Dept Use Only) < 0.02 ng/mL (0.0-0.045)
[2021-05-06 20:15] LABS: Protime INR 1.32
--- NOTE | 2021-05-06 20:35 | RAD REPORT ---
EXAM DESCRIPTION: RAD - Chest Single View - 05/06/2021 7:47 pm CLINICAL HISTORY: ABDOMINAL DISTENTION COMPARISON: <Comparisons> FINDINGS: Lines: Pacemaker. Lungs: No evidence of edema or pneumonia. Pleural: No significant pleural effusions or pneumothorax. Cardiac: Mild cardiomegaly. Bones: No acute fractures. Other: IMPRESSION: No acute cardiopulmonary disease.
--- NOTE | 2021-05-06 20:59 | P.HP ---
Certification for Inpatient Patient admitted to: Inpatient With expected LOS: >2 Midnights Patient will require the following post-hospital care: None Practitioner: I am a practitioner with admitting privileges, knowledge of patient current condition, hospital course, and medical plan of care. Services: Services provided to patient in accordance with Admission requirements found in Title 42 Section 412.3 of the Code of Federal Regulations Patient History Date of Service: 05/06/21 Primary Care Provider: Dr. sadler Reason for admission: Emphysematous cholecystitis History of Present Illness: 51-year-old male with history of atrial fibrillation on chronic anticoagulation therapy, chronic diastolic congestive heart failure, CAD, diabetes mellitus type 2, hypertension, hyperlipidemia presents emergency department for right upper quadrant abdominal pain. Patient reports the pain started approximately 4 hours prior to arrival to the emergency department a couple hours after eating a sandwich. Patient was evaluated in the emergency department labs were significant for white blood cell count 12.9 hemoglobin 12.3 hematocrit 38.1 creatinine 1.54 GFR 48 magnesium 2.7 AST 15 ALT 33 lipase 86 troponin less than 0.[address]NP [address] Patient had CT of the abdomen pelvis which demonstrated cholelithiasis with trace gallbladder gas possibly representing early emphysematous cholecystitis, follow-up abdominal ultrasound revealed gas again noted to be within the gallbladder lumen as well as cholelithiasis which can be seen with emphysematous cholecystitis. ED provider started patient on meropenem/vancomycin and call general surgery, general surgery recommends admission, n.p.o., IVF, IV antibiotics and cardiac clearance. Cardiology was also notified of need for cardiac clearance. Patient family at bedside request transferred to [facility] for continuity of care, this was attempted but [facility] declined for capacity. Will admit for further evaluation and management Allergies butorphanol tartrate [From Stadol] Allergy (Verified 01/28/20 21:04) Unknown gabapentin [From Neurontin] Allergy (Verified 01/28/20 21:04) Unknown metaxalone [From Skelaxin] Allergy (Verified 01/28/20 21:04) Unknown metoprolol Allergy (Verified 01/28/20 21:04) severe hypotension mirtazapine [From Remeron] Allergy (Verified 01/28/20 21:04) Itching/Hives/Rash quetiapine [From Seroquel] Allergy (Verified 01/28/20 21:04) Shortness of breath spironolactone Allergy (Verified 01/28/20 21:04) Shortness of breath tamsulosin [From Flomax] Allergy (Verified 01/28/20 21:04) Unknown tramadol Allergy (Verified 01/28/20 21:04) Shortness of breath trazodone Allergy (Verified 01/28/20 21:04) Shortness of breath Beta Blockers (sen Allergy (Uncoded 01/28/20 21:04) Unknown Home Medications: Amiloride HCl 10 mg PO BID 05/11/19 Atorvastatin Calcium [Lipitor] 40 mg PO BEDTIME 05/11/19 Buprenorphine HCl/Naloxone HCl [Suboxone 8 mg-2 mg Sl Film] 1 tab SL BID 05/11/19 Clopidogrel Bisulfate [Plavix*] 75 mg PO DAILY 05/11/19 Docusate [Colace Cap*] 100 mg PO BIDP PRN 05/11/19 Magnesium Oxide [Magnesium] 400 mg PO DAILY 05/11/19 Metformin ER [Glucophage ER*] 500 mg PO DAILY 05/11/19 Pantoprazole [Protonix Tab*] 40 mg PO BID 05/11/19 Ranolazine [Ranexa] 1,000 mg PO BID 05/11/19 allopurinoL [Zyloprim*] 300 mg PO DAILY 05/11/19 clonazePAM [Klonopin*] 1 mg PO TID 05/11/19 Aripiprazole [Abilify] 1 tab PO DAILY 01/28/20 Desvenlafaxine Succinate [Pristiq] 200 mg PO DAILY 01/28/20 Insulin Glargine,Hum.rec.anlog [Lantus] 30 units SQ DAILY 01/28/20 Folic Acid 1 tab PO DAILY 01/29/20 Bumetanide [Bumex] 1.5 mg PO BID 12/24/20 Diltiazem HCl [Diltiazem 24Hr Cd] 120 mg PO DAILY 12/24/20 Dulaglutide [Trulicity] 2 ml SQ EVERY 7TH DAY 12/24/20 Empagliflozin [Jardiance] 1 tab PO DAILY 12/24/20 Nitroglycerin 0.4 mg SL SEECOM PRN 12/24/20 Potassium Chloride 40 meq PO BID 12/24/20 Promethazine Tab [Phenergan*] 25 mg PO Q6H PRN 12/24/20 Rivaroxaban [Xarelto] 20 mg PO DAILY 12/24/20 methocarbamoL [Robaxin*] 750 mg PO BID 12/24/20 - Past Medical/Surgical History Diabetic: Yes -: HTN -: Nephrolithiasis -: Obstructive sleep apnea -: Diabetes mellitus type 2 -: Coronary artery disease, stent x2 -: Abdominal aortic aneurysm (3.1 cm) -: Atrial fibrillation on chronic anticoagulation therapy -: Hyperlipidemia -: Chronic diastolic congestive heart failure -: Former smoker -: Chronic pain -: Pulmonary embolism -: Lithotripsy -: Heart catheterization, stent to the right RCA -: right bundle branch block -: pacemaker -: hernia repair Psychosocial/ Personal History: He is 24 years, has no children, he does not work. - Family History Father -: Heart disease, Hypertension, Lung disease Notes: at age 69 CHF, asthma, COPD Mother -: Hypertension Sister -: Hypertension Notes: brain aneurysm - Social History Smoking Status: Former smoker Alcohol use: No CD- Drugs: No Caffeine use: No Place of Residence: Home Review of Systems 10-point ROS is otherwise unremarkable Gastrointestinal: Nausea, Abdominal Pain Physical Examination - Physical Exam General: Alert, In no apparent distress, Oriented x3 HEENT: Atraumatic, PERRLA, Mucous membr. moist/pink, EOMI, Sclerae nonicteric Neck: Supple, 2+ carotid pulse no bruit, No LAD, Without JVD or thyroid abnormality Respiratory: Clear to auscultation bilaterally, Normal air movement Cardiovascular: Regular rate/rhythm, Normal S1 S2 Gastrointestinal: Normal bowel sounds, No masses, No rebound, No guarding, Tenderness (Very mild right upper quadrant tenderness) Musculoskeletal: No tenderness Integumentary: No rashes Neurological: Normal speech, Normal strength at 5/5 x4 extr, Normal tone, Normal affect Lymphatics: No axilla or inguinal lymphadenopathy - Studies Laboratory Data (last 24 hrs) 05/06/21 19:50: PT 15.2 H, INR 1.32 05/06/21 17:14: Magnesium 2.7 H 05/06/21 17:14: WBC 12.90 H, Hgb 12.3 L, Hct 38.1 L, Plt Count 327 05/06/21 17:14: Sodium 140, Potassium 4.1, BUN 17, Creatinine 1.54 H, Glucose 91, Total Bilirubin 0.3, AST 15, ALT 33, Alkaline Phosphatase 149 H, Lipase 86 Assessment and Plan - Plan Assessment: Right upper quadrant pain secondary to emphysematous cholecystitis Chronic diastolic congestive heart failure Atrial fibrillation on chronic anticoagulation therapy CAD with previous stents Diabetes mellitus type 2 CKD 3 Hypertension Hyperlipidemia GERD Plan: Right upper quadrant pain secondary to emphysematous cholecystitis: Case was discussed with general surgery, patient on meropenem/vancomycin at this time blo od cultures were obtained as well. Patient is n.p.o. with cardiology consult in place cardiology has been notified. As needed pain medications, will monitor patient's vital signs closely with repeat abdominal exams, at this time patient with very mild right upper quadrant tenderness without any guarding or rebound tenderness noted on exam. Currently heart rate 75 blood pressure 114/62 patient does not appear septic. Appreciate further input from general surgery. Chronic diastolic congestive heart failure: Patient does take Lasix at home, BNP normal at this time patient without any signs of volume overload or pulmonary edema will continue with gentle hydration overnight. Atrial fibrillation on chronic anticoagulation therapy: Patient on Xarelto 20 mg nightly last dose 05/05/2021, will hold and use SCDs for DVT prophylaxis. CAD with previous stents: Monitor on telemetry stable patient without chest pain Diabetes mellitus type 2: Every 6 hours Accu-Chek, sliding scale insulin CKD 3: Similar to baseline continue gentle hydration Hypertension: Hold oral medications at this time restart when appropriate Hyperlipidemia: Hold oral medications at this time restart when appropriate GERD: IV Protonix DVT PPX: SCD Code status: Full Discharge Plan: Home Plan to discharge in: 48 Hours - Advance Directives Does patient have a Living Will: No Does patient have a Durable POA for Healthcare: No - Code Status/Comfort Care Code Status Assessed: Yes (Full code) Critical Care: No Time Spent Managing Pts Care (In Minutes): 55
[2021-05-06] MEDS ORDERED: SODIUM CHLORIDE 0.9% 10ML INJ IV PRN (21:46)
[2021-05-06] MEDS ORDERED: ONDANSETRON 4 MG/2 ML VIAL IV PRN (21:46)
[2021-05-06] MEDS ORDERED: NA CHLORIDE 0.9% 1,000 ML IV SCH (21:46)
[2021-05-06] MEDS ORDERED: MORPHINE 2 MG/ML SYR IV PRN (21:46)
[2021-05-06] MEDS: INSULIN -REGULAR HUMAN 50 UNIT/0.5 ML ML SQ SCH (21:46)
[2021-05-06 22:46] VITALS: BMI 40.8
[2021-05-06] MEDS ORDERED: VANCOMYCIN 2 GM in NA CHLORIDE 0.9% 500 ML IVPB SCH (23:00)
[2021-05-06] MEDS: HYDROMORPHONE HCL 1 MG/ML INJ IV PRN (23:36)
[2021-05-07] MEDS: D5 0.45 NS 1,000 ML IV SCH ×2 (00:02→18:17)
[2021-05-07 00:37] LABS: Urine Appearance CLEAR (Clear); Urine Bilirubin NEGATIVE (Negative); Urine Blood NEGATIVE (Negative); Urine Color YELLOW (Yellow); Urine Glucose 3+ (Negative); Urine Protein NEGATIVE (Negative); Urine Specific Gravity 1.025 (1.005-1.030); Urine pH 6.5 (5.0-7.0)
[2021-05-07 00:41] LABS: Urine Microscopic Reflex NO UMIC
[2021-05-07] MEDS: Meropenem 500 MG/100 ML BAG IV SCH ×4 (01:00→17:24)
[2021-05-07] MEDS ORDERED: Meropenem 500 MG VIAL IV ONE (02:36)
[2021-05-07] MEDS ORDERED: NA CHLORIDE 0.9% 100 ML ONE (03:02)
[2021-05-07] MEDS: HYDROMORPHONE HCL 1 MG/ML INJ IV PRN (03:41)
[2021-05-07 03:45] LABS: Absolute Lymphocytes (CBC) 2.2 K/uL (0.7-4.9); Basophils % 0.2 % (0-1.3); Hematocrit 34.9 % (39.6-49.0); Lymphocytes % 20.5 % (15.3-44.8); MPV 7.3 fL (7.6-11.3); RBC Red Blood Cell Count 4.67 M/uL (4.33-5.43)
[2021-05-07 03:46] LABS: Protime INR 1.26
[2021-05-07 04:21] LABS: Albumin 2.7 g/dL (3.4-5.0); Bilirubin Total 0.5 mg/dL (0.2-1.0); Magnesium 2.4 mg/dL (1.8-2.4); Potassium 3.8 mmol/L (3.5-5.1); Protein, Total 7.1 g/dL (6.4-8.2); Thyroid Stimulating Hormone 1.68 uIU/mL (0.360-3.740)
--- NOTE | 2021-05-07 06:00 | P.PN ---
Date of Service: 05/07/21 Subjective: Feeling slightly better this morning, continues with pain, feels Dilaudid was barely touching it Scheduled for OR today. No worsening of symptoms ROS: 10 point ROS as noted above, otherwise negative Physical exam GEN: Alert, oriented, NAD HEENT: Normal conjunctiva, sclera anicteric CV: Regular rate and rhythm, no edema Pulm: Nonlabored respiration on room air ABD: Soft, moderate TTP in RUQ, nondistended MSK: No joint tenderness Integumentary: No rashes Neuro: Normal speech, normal affect Problem List RUQ pain secondary to emphysematous cholecystitis Chronic diastolic congestive heart failure Atrial fibrillation on chronic anticoagulation therapy CAD with previous stents Diabetes mellitus type 2, insulin-dependent CKD 3 Hypertension Hyperlipidemia GERD General surgery consulted, continue meropenem, can DC vancomycin at this time N.p.o. for surgery today Discussed with cardiology, patient is medically optimized to undergo urgent cholecystectomy Continue pain medication, scheduled to go early today, may need to increase pain medication postoperatively N.p.o., IV fluids will awaiting for surgery Continue monitor on telemetry Last dose of Xarelto on the evening of 05/05, discussed with general surgery and they are okay with restarting Repeat labs in a.m., obtain home medications, restart once taking p.o. and when appropriate VTE: SCDs preoperatively Code: Full Dispo: Anticipate DC home in 24-48 hours Time Spent Managing Pts Care (In Minutes): 35
[2021-05-07] MEDS: INSULIN -REGULAR HUMAN 50 UNIT/0.5 ML ML SQ SCH ×4 (07:30→20:20)
[2021-05-07] MEDS: HYDROMORPHONE HCL 0.5 MG/0.5 ML INJ IV PRN ×4 (07:53→23:03)
[2021-05-07] MEDS: PANTOPRAZOLE 40 MG INJ IVP SCH (07:57)
[2021-05-07] MEDS ORDERED: NA CHLORIDE 0.9% 1,000 ML ONE (09:30)
[2021-05-07] MEDS ORDERED: propofoL 200 MG/20 ML VIAL IV ONE (10:39)
[2021-05-07] MEDS ORDERED: MIDAZOLAM HCL 2 MG/2 ML INJ ONE (10:39)
[2021-05-07] MEDS ORDERED: LIDOCAINE 2% MPF 5 ML VIAL ONE (10:40)
[2021-05-07] MEDS ORDERED: dexAMETHasone 10 MG/ML VIAL ONE (10:40)
[2021-05-07] MEDS ORDERED: FENTANYL CITR 100 MCG/2 ML ONE (10:40)
[2021-05-07] MEDS ORDERED: ROCURONIUM 50 MG/5 ML VIAL IV ONE (10:40)
[2021-05-07] MEDS ORDERED: ONDANSETRON 4 MG/2 ML VIAL ONE (10:41)
--- NOTE | 2021-05-07 11:22 | CON ---
Date of Consultation: 05/07/2021 Diagnoses: Acute cholecystitis, symptomatic cholelithiasis with emphysematous gallbladder. History Of Present Illness: This is the case of a 51-year-old patient with extensive medical history including atrial fibrillation on anticoagulation, congestive heart failure, coronary artery disease, diabetes, hypertension, hyperlipidemia, came to the hospital for 1 day duration of right upper quadr ant abdominal pain after eating sandwich. He denies prior episode. He thought it was just a kidney stone and that is why he came to the ER since he has the trips to before and found to have an abnorma l gallbladder and the patient was admitted to the Medical Service and surgical consult was obtained. Past Medical History: Hypertension, kidney stones, sleep apnea, diabetes, coronary artery disease, h istory of stent placed, abdominal aortic aneurysm, atrial fibrillation on anticoagulation, hyperlipid emia, congestive heart failure, history of pulmonary embolism, heart arrhythmias. Past Surgical History: Surgeries include pacemaker, cardiac stents, hernia repair right lower quadra nt. Family History: Includes lung disease, heart disease. Social History: He used to smoke, he does not smoke anymore. He does not drink alcohol. Medications: Reviewed including Neurontin and anticoagulation. Review of Systems: Epigastric right upper quadrant pain, nausea, bloating. Ten points otherwise unremarkable. Physical Examination: General: The patient is awake, alert. HEENT: Pupils anicteric. Neck: Supple. Chest: Clear. Abdomen: Epigastric right upper quadrant tenderness with Santo sign positive. The rest of the abdo men is soft and depressible. Extremities: Good capillary refill. Laboratory Data: Blood work shows WBC count of 12.9, hemoglobin of 12.3, and platelets of 327. INR is . Creatinine is 1.54 with a potassium of 4.1, total bilirubin of 0.3. Abdominal ultras ound interpreted by Dr. Roberts as gas noticed within the gallbladder lumen as well cholelithiasis with r ule out emphysematous cholecystitis. CAT scan of the abdomen and pelvis shows cholelithiasis, trace gallbladder gas, probably representing early emphysematous cholecystitis. Assessment: A 51-year-old patient with multiple medical problems, but now has acute cholecystitis wi th possible gas and cholelithiasis with symptoms. The blackjack pit boss saw him and just cleared the roman ent from the surgical standpoint. They understand the urgency of the situation. The benefits, alter natives, and risks of laparoscopic possible open cholecystectomy fully explained to the patient, madi h include, but not limited to infection, bleeding, damage to adjacent structures, anesthesia complica tion, cholelithiasis, bile leak, pancreatitis, NC, and even . He also understands this may not relieve any symptoms. He might need more than one surgical intervention. He understood, signed a co nsent. SOLITARIO/CHELSI Voice ID: [id number] Report ID: [id number]
[2021-05-07] MEDS ORDERED: GLYCOPYRROLATE 0.2 MG/ML SYR ONE (11:37)
[2021-05-07] MEDS ORDERED: NEOSTIGMINE 1 MG/ML -5 ML ONE (11:44)
--- NOTE | 2021-05-07 11:55 | P.BOP ---
Preoperative diagnosis: acute emphysematous cholelithiasis, Sympt cholelithiasis, cardiac disease Postoperative diagnosis: same plus umbilical hernia Primary procedure: 1. Laparoscopic cholecystectomy Secondary procedure: 2. Repair of umbilical hernia Percussion Instrument Tuner: Leann Hernandez) Estimated blood loss: <10cc Specimen: gb, hernia sac Findings: as above Anesthesia: General Complications: None Transferred to: Recovery Room Condition: Good
[2021-05-07] MEDS ORDERED: HYDROMORPHONE HCL 1 MG/ML INJ ONE (12:14)
--- NOTE | 2021-05-07 15:16 | OP ---
Date of Procedure: 05/07/2021 Surgeon: Josiah Darby MD Student Services Counselor: Leann Edgar. Preoperative Diagnoses: Acute emphysematous cholelithiasis, symptomatic cholelithiasis, cardiac dise ase. Postoperative Diagnoses: Acute emphysematous cholelithiasis, symptomatic cholelithiasis, cardiac dis ease plus umbilical hernia. Procedures: 1.Laparoscopic cholecystectomy. 2.Repair of umbilical hernia. Estimated Blood Loss: Less than 10 mL. Specimen: Gallbladder, hernia sac. Anesthesia: General plus local. Indication: This is the case of a 51-year-old patient, who comes to us with above diagnosis. Please see H and P for details. Laparoscopic possible open cholecystectomy fully explained to the patient and family with benefits, alternatives, and risks including, but not limited to infection, bleeding, damage to adjacent structures, anesthesia complication, choledocholithiasis, bile leak, pancreatitis, DC and even . He also understands this may not relieve any symptoms. He might need more than one surgical intervention. He understood, signed a consent. Procedure In Detail: The patient was brought to the operating room, placed in supine position. Anes thesia was done without complication. Abdominal area was prepped and draped in usual sterile fashion . Local anesthesia was applied followed by sharp incision of the skin in the infraumbilical region. The patient has an umbilical hernia in that area. Some umbilical sac was open and sent to the patho logist. Fascial edges were cleaned and we proceeded to close this umbilical hernia, although the edg es around the area looked strong. Because of how thin they are, he may need to be careful with the h eavy lifting and weight gain because he may need to use mesh in the future, but in the condition that we have right now with infection of the gallbladder is not the appropriate trying to put any mesh th ere. That being said, we placed Vicryl #1 inside the fascia. Rosa trocar was carefully introduced . Pneumoperitoneum was obtained. I placed 3 more trocars, 5 mm each one of them, 1 in epigastric ar ea and 2 in the right upper quadrant using same technique, which consisted of local anesthetic, sharp incision of the skin and introduction of the trocars under direct vision. This allowed me to visual ize the area of the gallbladder, looked distended, so we placed an Endo needle and deflated the gallb ladder under direct visualization, removed the needle under direct visualization. This allowed me to put a grasper in the fundus of the gallbladder, another grasper in the infundibulum retracting the g allbladder in the inferolateral fashion, exposing the triangle of Calot, and obtaining critical view. Cystic duct and cystic artery were clearly isolated, free circumferentially and a connection betwee n those and the gallbladder were clearly identified. I proceeded to ligate those by using at least 3 clips proximal, 1 clip distal, ligation in middle. Same was done with the cystic artery. No bile l eak, no bleeding. A little cystic artery branch was also ligated using same technique. Hepatic briseyda shekhar and common bile duct were protected at all times. The gallbladder was removed from liver using Bovie cauterizer and removed from abdominal cavity using EndoCatch through the umbilical incision. T he area was inspected once again after irrigation and suction. Clips were intact. No bleeding. No bile leak. At that moment, I proceeded to remove the trocars under direct vision. Deflated pneumope ritoneum. Closed the umbilical hernia with #1 Vicryl. Irrigated subcutaneous suture, closed that wi th 3-0 chromic and skin with gabriel. Sponge count and instrument counts correct. The patient radha ated the procedure well. The patient will be sent to recovery in stable condition. He will be once again under the Medical Service. SOLITARIO/CHELSI Voice ID: [id number] Report ID: [id number]
[2021-05-07] MEDS ORDERED: VANCOMYCIN 2 GM in NA CHLORIDE 0.9% 500 ML IVPB SCH (18:00)
[2021-05-07 22:23] VITALS: O2SAT 93
[2021-05-08] MEDS: Meropenem 500 MG/100 ML BAG IV SCH ×2 (01:14→10:52)
[2021-05-08] MEDS: D5 0.45 NS 1,000 ML IV SCH ×2 (02:25→09:23)
[2021-05-08] MEDS: HYDROMORPHONE HCL 0.5 MG/0.5 ML INJ IV PRN ×2 (04:29→09:23)
[2021-05-08 05:00] LABS: Basophils % 0.1 % (0-1.3); Hematocrit 33.8 % (39.6-49.0); Lymphocytes % 6.4 % (15.3-44.8); MPV 7.2 fL (7.6-11.3); RBC Red Blood Cell Count 4.52 M/uL (4.33-5.43)
[2021-05-08 05:16] LABS: Albumin 2.8 g/dL (3.4-5.0); Bilirubin Total 0.4 mg/dL (0.2-1.0); Magnesium 2.6 mg/dL (1.8-2.4); Protein, Total 7.1 g/dL (6.4-8.2)
[2021-05-08 05:27] LABS: Blood Morphology Comment NOTED (NOT SEEN)
[2021-05-08 05:28] LABS: Basophilic Stippling 1+; Platelet Estimate ADEQ
[2021-05-08] MEDS: INSULIN -REGULAR HUMAN 50 UNIT/0.5 ML ML SQ SCH ×2 (07:30→11:30)
[2021-05-08] MEDS ORDERED: VANCOMYCIN/NS 1 gm 1 GM/250 ML BAG IVPB SCH (09:00)
[2021-05-08] MEDS: PANTOPRAZOLE 40 MG INJ IVP SCH (09:18)
--- NOTE | 2021-05-08 11:46 | P.DS ---
Admission Date: 05/06/21 Discharge Date: 05/08/21 Primary Care Provider: Dr. andrade Disposition: ROUTINE DISCHARGE Discharge Condition: GOOD Reason for Admission: Emphysematous cholecystitis Consultations: General surgeryDr. Darby. Procedures: Laparoscopic cholecystectomy. - Problems (1) Acute emphysematous cholecystitis Current Visit: Yes Status: Acute Brief History of Present Illness: 51-year-old male with history of atrial fibrillation on chronic ant icoagulation therapy, chronic diastolic congestive heart failure, CAD, diabetes mellitus type 2, hypertension, hyperlipidemia presented emergency department for right upper quadrant abdominal pain. Patient reported the pain started approximately 4 hours prior to arrival to the emergency department. Patient was evaluated in the emergency department labs were significant for white blood cell count 12.9 hemoglobin 12.3 hematocrit 38.1 creatinine 1.54 GFR 48 magnesium 2.7 AST 15 ALT 33 lipase 86 troponin less than 0.02 BNP [address] Patient had CT of the abdomen pelvis which demonstrated cholelithiasis with trace gallbladder gas possibly representing early emphysematous cholecystitis, follow-up abdominal ultrasound revealed gas again noted to be within the gallbladder lumen as well as cholelithiasis which can be seen with emphysematous cholecystitis. ED provider started patient on meropenem/vancomycin and general surgery Dr. Darby informed. Patient subsequently admitted for further management. Cardiology was also notified of need for cardiac clearance. Patient family at bedside request transferred to [facility] for continuity of care, this was attempted but [facility] declined for capacity. Patient admitted for further evaluation and management. Hospital Course: Diagnosis RUQ pain secondary to emphysematous cholecystitis Chronic diastolic congestive heart failure Atrial fibrillation on chronic anticoagulation therapy CAD with previous stents Diabetes mellitus type 2, insulin-dependent CKD 3 Hypertension Hyperlipidemia GERD General surgery consulted, patient treated with meropenem. Lap cholecystectomy performed. Surgery uneventful. Patient monitored overnight. His symptoms have significantly improved. He tolerated solid diet. Patient cleared for discharge by general surgery. Home medications including Xarelto resumed on discharge. Patient discharged with Augmentin to continue treatment for possible infection. Vital Signs/Physical Exam: Temp Pulse Resp BP Pulse Ox 97.4 F 88 18 145/74 H 98 05/08/21 08:00 05/08/21 08:00 05/08/21 08:00 05/08/21 08:00 05/08/21 08:00 General: Alert, In no apparent distress, Oriented x3 HEENT: Mucous membr. moist/pink Neck: JVD not distended Respiratory: Clear to auscultation bilaterally, Normal air movement Cardiovascular: No edema, Regular rate/rhythm, Normal S1 S2 Gastrointestinal: Soft and benign, Non-distended, Other (Laparoscopic wounds looks clean.) Musculoskeletal: No swelling Integumentary: No rashes Neurological: Normal strength at 5/5 x4 extr Laboratory Data at Discharge: WBC 15.60 K/uL (4.3-10.9) H D 05/08/21 04:50 Hgb 11.0 g/dL (13.6-17.9) L 05/08/21 04:50 Hct 33.8 % (39.6-49.0) L 05/08/21 04:50 Plt Count 274 K/uL (152-406) 05/08/21 04:50 PT 14.5 SECONDS (9.5-12.5) H 05/07/21 03:24 INR 1.26 05/07/21 03:24 Sodium 140 mmol/L (136-145) 05/08/21 04:50 Potassium 4.0 mmol/L (3.5-5.1) 05/08/21 04:50 BUN 12 mg/dL (7-18) 05/08/21 04:50 Creatinine 1.05 mg/dL (0.55-1.3) 05/08/21 04:50 Glucose 154 mg/dL (74-106) H 05/08/21 04:50 Magnesium 2.6 mg/dL (1.8-2.4) H 05/08/21 04:50 Total Bilirubin 0.4 mg/dL (0.2-1.0) 05/08/21 04:50 AST 28 U/L (15-37) 05/08/21 04:50 ALT 43 U/L (12-78) 05/08/21 04:50 Alkaline Phosphatase 116 U/L (45-117) 05/08/21 04:50 Triglycerides 120 mg/dL (<150) 05/07/21 03:24 Cholesterol 148 mg/dL (<200) 05/07/21 03:24 HDL Cholesterol 46 mg/dL (40-60) 05/07/21 03:24 Cholesterol/HDL Ratio 3.22 05/07/21 03:24 Lipase 86 U/L (73-393) 05/06/21 17:14 Home Medications: Amiloride HCl 10 mg PO BID 05/11/19 Atorvastatin Calcium [Lipitor] 40 mg PO BEDTIME 05/11/19 Buprenorphine HCl/Naloxone HCl [Suboxone 8 mg-2 mg Sl Film] 1 tab SL BID 05/11/19 Docusate [Colace Cap*] 100 mg PO BIDP PRN 05/11/19 Magnesium Oxide [Magnesium] 400 mg PO DAILY 05/11/19 allopurinoL [Zyloprim*] 300 mg PO DAILY 05/11/19 clonazePAM [Klonopin*] 1 mg PO TID 05/11/19 Insulin Glargine,Hum.rec.anlog [Lantus] 30 units SQ DAILY 01/28/20 Folic Acid 1 tab PO DAILY 01/29/20 Bumetanide [Bumex] 1.5 mg PO BID 12/24/20 methocarbamoL [Robaxin*] 750 mg PO BID 12/24/20 ARIPiprazole [Aripiprazole] 15 mg PO DAILY 05/07/21 Bupropion HCl [Wellbutrin Xl] 1 tab PO DAILY 05/07/21 Cyanocobalamin [Vitamin B-12*] 1,000 mcg IM SEECOM 05/07/21 Desvenlafaxine Succinate [Desvenlafaxine Succinate ER] 2 pill PO DAILY 05/07/21 Dulaglutide [Trulicity] 3 mg SQ SEECOM 05/07/21 Empagliflozin [Jardiance] 1 tab PO DAILY 05/07/21 Metformin ER [Glucophage ER*] 1 tab PO DAILY 05/07/21 Nitroglycerin 1 tab SL PRN PRN 05/07/21 Pantoprazole [Protonix Tab*] 1 tab PO BID 05/07/21 Promethazine Tab [Phenergan*] 1 tab PO Q6H PRN 05/07/21 Ranolazine [Ranolazine ER] 2 tab PO BID 05/07/21 Rivaroxaban [Xarelto] 1 tab PO DAILY 05/07/21 dilTIAZem HCL [Diltiazem 24Hr ER (Xr)] 1 cap PO DAILY 05/07/21 Amox/Clavulanate [Augmentin 875-125 Tab] 875 mg PO BID #14 tab 05/08/21 New Medications: Amox/Clavulanate [Augmentin 875-125 Tab] 875 mg PO BID #14 tab Physician Discharge Instructions: keep area dry for 24h then may remove outer dressing and shower. Cover gabriel with triple abx and bandaid Diet: AHA Activity: No lifting more than 10 lbs Followup: Josiah Darby MD [ACTIVE - CAN ADMIT] - 1 Week Lilibeth Andrade MD [Primary Care Provider] - If your Condition Changes Time spent managing pt's care (in minutes): 38
[2021-05-08 12:10] VITALS: BP 115/55; TEMP 97.3
--- NOTE | 2021-05-08 15:17 | PN ---
Date of Progress Note: 05/08/2021 Diagnosis: Status post emphysematous cholecystitis. Subjective: The patient is doing better. Tolerating diet. No nausea. No vomiting. Passing flatus . Objective: Chest: Clear. Abdomen: Soft and depressible. No calf tenderness. Plan: The patient will advance diet. He will most likely be discharged home if he is medically okay . If he goes home, he is going to be on pain medications and antibiotics. Follow up in my office in 1 week. Call for appointment at [phone]. Keep area dry for 24 hours and then he may take a shower with dressings off and cover the area with triple antibiotics and Band-Aid. He was advised not to d o heavy lifting. SOLITARIO/CHELSI Voice ID: [id number] Report ID: [id number]
== END 2021-05-08 13:30 | disposition home or self-care (01) | DRG 418 ==
LOC: ER 16:46 → ERHOLD 21:02 → 2ND 21:26
PROVIDERS: ADMIT Hospitalist; ATTEND Hospitalist
PROC: 0WQF0ZZ Repair Abdominal Wall, Open Approach (ICD-10-PCS; 2021-05-07)
PROC: 0FT44ZZ Resection of Gallbladder, Percutaneous Endoscopic Approach (ICD-10-PCS; principal; 2021-05-07 11:00)
DX: K80.00 Calculus of gallbladder with acute cholecystitis without obstruction (principal); I13.0 Hypertensive heart and chronic kidney disease with heart failure and stage 1 through stage 4 chronic kidney disease, or unspecified chronic kidney disease; I50.32 Chronic diastolic (congestive) heart failure; K42.9 Umbilical hernia without obstruction or gangrene; E11.22 Type 2 diabetes mellitus with diabetic chronic kidney disease; N18.30 Chronic kidney disease, stage 3 unspecified; I48.91 Unspecified atrial fibrillation; I25.10 Atherosclerotic heart disease of native coronary artery without angina pectoris; E78.5 Hyperlipidemia, unspecified; K21.9 Gastro-esophageal reflux disease without esophagitis; Z95.5 Presence of coronary angioplasty implant and graft; Z79.01 Long term (current) use of anticoagulants; Z20.822 Contact with and (suspected) exposure to COVID-19; Z87.891 Personal history of nicotine dependence
CPT/HCPCS: 36415; 71045; 74176; 76705; 80048; 80053; 80061; 80076; 81003; 82565; 82947; 83690; 83735; 83880; 84439; 84443; 84484; 85025; 85610; 87040; 88302; 88304; 93005; 96361; 96365; 96367; 96375; 99285; C9113; J1100; J1170; J2185; J2250; J2405; J2704; J2710; J3010; J3370; J7030; J7040; J7050; J7799; U0003

== ENCOUNTER 2021-09-16 15:33 | Observation (INO) | payer OTHER ==
--- OUTSIDE RECORDS SUMMARY | 2021-09-16 15:48 | XMS REPORT | Continuity of Care Document ---
:1970 Author Organization [facility] t Address [address] [place] [address] Care Team Providers Name Role Phone Asked, Pcp Primary Care Physician Unavailable AYE Attending Clinician Unavailable Elmer ANDRADE Attending Clinician Unavailable DOMINIQUE CALLAHAN Attending Clinician Unavailable Elmer HERRERA Attending Clinician Unavailable Dominique Callahan MD Attending Clinician Alvin RN, L Attending Clinician Unavailable Tania NATARAJAN Attending Clinician Unavailable Rosa Isela PHILLIP S Attending Clinician Nick PHILLIP Attending Clinician AYO Attending Clinician Unavailable Leopoldo NORIEGA Attending Clinician Elmer Andrade MD Attending Clinician Jorge DE LOS SANTOS Attending Clinician JORGE Attending Clinician Unavailable Robert PHILLIP Attending Clinician Aye PHILLIP Attending Clinician [facility] Attending Clinician Unavailable Doctor Unassigned, Name Attending Clinician Unavailable Wilder MORFIN Attending Clinician Unavailable Tonny PHILLIP, N Attending Clinician Rocco PHILLIP Attending Clinician Jose LANCASTER Attending Clinician Unavailable ROBERT Attending Clinician Unavailable Jonathan CABLE HOOKER, J Attending Clinician Only, Db Test Attending Clinician Unavailable Minoo HANNA Attending Clinician Unavailable Kalyn CABLE HOOKER Attending Clinician Ayo PHILLIP Attending Clinician KALYN Attending Clinician Unavailable Varsha AUGUSTEP Attending Clinician Devante CABLE HOOKER Attending Clinician DEVANTE Attending Clinician Unavailable BERNIE Attending Clinician Unavailable ROCCO Attending Clinician Unavailable Pob, Lab Main Attending Clinician Unavailable Bibiana PHILLIP Attending Clinician Candelario PHILLIP Attending Clinician Laisha PHILLIP Attending Clinician Yesenia CABLE HOOKER, [place] Attending Clinician Draw, Lab Attending Clinician Unavailable Daniel Mahoney DO Attending Clinician 2, Lab Attending Clinician Unavailable Juan MORFIN, A Attending Clinician Unavailable Nelia Nieto Attending Clinician Lala HERNANDEZ, S Attending Clinician 1, Lab Attending Clinician Unavailable NICK Admitting Clinician Unavailable Nick PHILLIP Admitting Clinician Elmer ANDRADE Admitting Clinician Unavailable Payers Payer Name Policy Type Policy Number Effective Date Expiration Date Tania olivares WILLIE/LINDA [id number] 2021 MCARE ADV CHOICE 00:00:00 PPO MEDICARE PART A [id number] 2018 2021 \\T\\ B 00:00:00 00:00:00 [facility] [id number] 2017 2021 CHOICE 00:00:00 00:00:00 Advance Directives Directive Decision Effective Termination Comments Source Date Date Healthcare Agents on N/A Univ ersity FileNameRelationshipHealthSelect Specialty Hospital Agent Medical RelationshipCommunicationKacarrollton regional medical centere Branch Lilibeth ThomaseSpouseHealth Care [phone] (Mobile) [email or web address] Alternate Health Care [phone] (Mobile) Problems Condition Condition Condition Status Onset Resolution Last Treating Co mments Source Name Details Category Date Date Treatment Clinician Date Obesity Obesity Disease Active Univers (BMI (BMI 3-20 ity of 30-39.9) 30-39.9) 00:00: [place] [facility] Status Status Disease Active 2020-06 Univers post post 1-18 ity of cholecyste cholecyste [place] ct[place] ctomy 00 [facility] [place] Chest pain Chest pain Disease Active U nivers 9-07 ity of 00:00: [place] [facility] 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 [place] sm sm 00 [place] High serum High serum Disease Active U nivers aldosteron aldosteron 5-19 it y of e e 00:00: [place] [facility] History of History of Disease Active U nivers pulmonary pulmonary 4-09 ity of embolism embolism 00:00: [place] [facility] Antiphosph Antiphosph Disease Active 2019- U nivers olipid olipid 2-08 ity of syndrome syndrome 00:00: [place] [facility] SOB SOB Disease Active 2018-06 Univers (shortness (shortness 2-13 it y of of breath) of breath) [place] Pacemaker Pacemaker Disease Active 2018-06 Uni vers 1-11 ity of 00:00: [place] [facility] Bradycardi Bradycardi Disease Active 2018- U nivers a a 4-16 ity of 00:00: [place] 00 Medical Branch Congestive Congestive Disease Active U nivers heart heart 3-11 ity of failure failure 00:00: [place] [address] Medical Branch Volume Volume Disease Active Univers overload overload 3-11 ity of 00:00: [place] [facility] Anticoagul Anticoagul Disease Active U nivers ation ation 3-04 ity of management management 00:00: [place] encounter encounter 00 Medi marium [Z51.81, [Z51.81, Branch Z79.01] Z79.01] Other Other Disease Active Univers pulmonary pulmonary 2-16 ity of embolism embolism 00:00: [place] without without 00 Medical acute cor acute cor Bran ch pulmonale, pulmonale, unspecifie unspecifie d d chronicity chronicity Status Status Disease Active Univers post post 8-15 ity of placement placement 00:00: [place] Medical implantabl implantabl Br anch e loop e loop recorder recorder 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, disorder, 00:00: [facility] recurrent recurrent 00 l episode, episode, severe severe MDD (major MDD (major Disease Active M ethodi depressive depressive 8-04 st disorder), disorder), 00:00: Ho spita recurrent recurrent 00 l severe, severe, without without psychosis psychosis Tachycardi Tachycardi Disease Active U nivers a a 7-17 ity of 00:00: [place] [facility] Angina at Angina at Disease Active Uni vers rest rest 7-12 ity of 00:00: [place] [facility] Pulmonary Pulmonary Disease Active Uni vers emboli emboli 5-14 ity of 00:00: [place] [facility] Severe Severe Disease Active Methodi episode of episode of 2-04 st recurrent recurrent 00:00: [facility] major major 00 l depressive depressive disorder, disorder, without without psychotic psychotic features features Chronic Chronic Disease Active Methodi pain pain 2-04 st syndrome syndrome 00:00: Hospit a 00 l Electrolyt Electrolyt Disease Active U nivers e e 1-25 ity of abnormalit abnormalit 00:[place] y y 00 [place] Chronic Chronic Disease Active 2016-06 Univers diastolic diastolic 1-03 ity of congestive congestive 00:00[place] heart heart 00 Medical failure failure Branch Other iron Other iron Disease Active 2016-06 Overview : Univers deficiency deficiency 0-10 Formattin ity of anemia anemia 00:00: g of this [place] 00 note Medical might be Branch different from the original. 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 2- ity of disease disease 00:00: [place] involving involving 00 Medi marium [place] Branch coronary coronary artery of artery of [place] heart heart without without angina angina pectoris pectoris RI RI Disease Active 2015-06 Univers (myocardia (myocardia 2-21 it y of l l 00:00: [place] infarction infarction 00 Me dical ) ) Branch 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 2-21 ity of mellitus mellitus 00:00: [place] with with 00 Medical cardiac cardiac Branch complicati complicati on on Essential Essential Disease Active 2015-06 Uni vers hypertensi hypertensi 2-21 it y of on on 00:00: [place] 00 Medical Branch Chest pain Chest pain Disease Active 2015-06 U nivers 2- ity of 00:00: [place] 00 Medical Branch 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 2- ity of mellitus mellitus 00:00: [place] without without 00 Medical complicati complicati Br anch on on CHEST PAIN Diagnosis Active 2015-062016-10-01 Memoria 07-17 15:12:00 l CHEST 00:00: [place] PAIN 00 Active 05/17/2016 [facility] ACS, CHEST Diagnosis Active 2015-062016-10-01 Memoria PAIN - 15:12:00 l ACS, 00:00: [place] CHEST PAIN 00 Active 05/05/2016 [facility] [place] KIDNEY Diagnosis Active 2015-062016-10-01 Mem oria STONES 1-03 15:13:00 l KIDNEY 00:00: [place] STONES 00 Active 04/25/2016 [facility] KIDNEY Diagnosis Active 2016-03-02 Mem oria STONE - 07:18:00 l KIDNEY 00:00: [place] STONE 00 Active 03/02/2016 [facility] PYELONEPHR Diagnosis Active 2016-02-17 Memoria ITIS 02-16 08:00:00 l 00:00: [place] PYELONEPHR 00 ITIS Active 02/17/2016 [facility] Acute Acute Disease Active [facility] chest pain chest pain 01-18 [place] k[facility] - 00:00: Medical 00 Center Chest Chest Disease Active [facility] pain, pain, 12-25 [facility] unspecifie unspecifie 00:00: Me dical d type d type 00 Center Essential Essential Disease Active [facility] hypertensi hypertensi 12-18 [place] kes - on with on with 00:00: Medical goal blood goal blood 00 Ce nter pressure pressure less than less than 130/80 130/80 GREGORIO on GREGORIO on Disease Active [facility] CPAP CPAP 12-18 [facility] - 00:00: Medical 00 Center 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 12-18 [place] kes - n, Grade 1 n, Grade 1 00:00: Me dical 00 Center 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 2 in type 2 in 00:00: Medi marium obese obese 00 Center STEMI (ST STEMI (ST Disease Active [facility] elevation elevation 12-04 Luke s - myocardial myocardial 00:00: Me dical infarction infarction 00 Ce nter ) ) Abdominal Problem Resolve 2016-05-20 M emoria aortic d 02:45:43 l aneurysm Freddy (disorder) Abdominal aortic aneurysm (disorder) Resolved Problem 05/20/2016 [facility] Diabetes Problem Resolve 2016-05-20 Ms moria mellitus d 02:45:43 l (disorder) Diabetes He rmann mellitus (disorder) Resolved Problem 05/20/2016 [facility] Hyperchole Problem Resolve 2016-05-20 Memoria sterolemia d 02:45:43 l (disorder) Fly garcia Hyperchole sterolemia (disorder) Resolved Problem 05/20/2016 [facility] Right Problem Resolve 2016-05-20 Bc jae bundle d 02:45:43 l branch Right [place] block bundle (disorder) branch block (disorder) Resolved Problem 05/20/2016 [facility] Sleep Problem Resolve 2016-05-20 Bc jae apnea d 02:45:43 l (finding) Sleep Fly n apnea (finding) Resolved Problem 05/20/2016 [facility] Hypertensi Problem Resolve 2016-05-20 Memoria ve d 02:45:43 l disorder, Freddy systemic Hypertensi arterial ve (disorder) disorder, systemic arterial (disorder) Resolved Problem 05/20/2016 [place] TUBULO-INT Diagnosis Active 2016-02-17 Memoria ERSTITIAL 08:00:00 l NEPHRITIS, Fly n NOT SPCF TUBULO-INT ERSTITIAL NEPHRITIS, NOT SPCF Active [facility] CHEST Diagnosis Active 2016-10-01 Mem oria PAIN, 15:12:00 l UNSPECIFIE CHEST Ashley nn D PAIN, UNSPECIFIE D Active [facility] History of History of Disease Active Overview : Univers alcohol alcohol Formattin ity o f abuse abuse g of this [place] note Medical might be Branch different from the original. Sober for 16 years Acute Acute Disease Resolve 2020-10-05 2020-10-06 Univers hypokalemi hypokalemi d - 00:00:00 00:46:02 ity of a a 00:00: [place] 00 Medical Branch Chest pain Chest pain Disease Resolve 2016-08-19 2016-08-20 Univers radiating radiating d - 00:00:00 02:56:30 ity of to arm to [...] Morbid Morbid Disease Active 2016-08-19 2016-08-20 U nivers obesity obesity 1- 00:00:00 02:56:42 ity of with body with body 00:[place] mass index mass index 00 Me dical of of Branch 40.0-49.9 40.0-49.9 Obesity Obesity Disease Resolve 2015-062016-08-19 2016-08-20 Univers (BMI (BMI d 2- 00:00:00 02:56:20 ity of 30-39.9) 30-39.9) 00:00: [place] 00 Medical Branch History of Past Illness Condition Condition Condition Status Onset Resolution Last Treating Co mments Source Name Details Category Date Date Treatment Clinician Date Discharge Problem 2015-062016-05-20 2016-05-20 Memoria Diagnosis: 07-17 02:45:43 02:45:43 l Chest pain 06:00: [place] Discharge 00 Diagnosis: Chest pain 05/17/2016 05/20/2016 [facility] Discharge Problem 2015-062016-04-28 2016-04-28 Memoria Diagnosis: 06-25 04:09:27 04:09:27 l Flank pain 05:00: Fly n Discharge 00 Diagnosis: Flank pain 04/25/2016 04/28/2016 [facility] Discharge Problem 2016-03-08 2016-03-08 Memoria Diagnosis: 03-05 05:16:49 05:16:49 l Acute 05:00: [place] chest pain Discharge 00 Diagnosis: Acute chest pain 03/05/2016 03/08/2016 [facility] Discharge Problem 2016-03-05 2016-03-05 Memoria Diagnosis: 03-02 01:19:04 01:19:04 l Renal 05:00: [place] calculus Discharge 00 Diagnosis: Renal calculus 6 03/05/2016 [facility] Allergies, Adverse Reactions, Alerts Allergy Allergy Status Severity Reaction(s) Onset Inactive Treating Comm ents Source Name Type Date Date Clinician QUETIAPI DRUG Active Med Other-Cmnt 2018-06 Univ ers NE INGREDI 0-21 ity of FUMARATE 00:00: [place] 00 Medical Branch Quetiapi Propensi Active Other - See 2018-06 Involunt a Univers ne ty to comments 0-21 ry ity of Fumarate adverse 00:00: jerking [place] reaction 00 Medical s Branch MIRTAZAP DRUG Active Other-Cmnt Univ ers INE INGREDI 3-08 ity of 00:00: [place] 00 Medical Branch Mirtazap Propensi Active Other - See Urinary Univers ine ty to comments 3-08 issues, ity of adverse 00:00: gaining [place] reaction 00 weightOth Medic al s er Branch reaction( s): Other (see comments) Urinary issues, gaining weight gabapent DA Active U [facility] in 07-03 Clear 00:00: [place] 00 [facility] Bisoprol Propensi Active Other (See Me thodi ol ty to Comments) 2 st adverse 00:00: Hospita reaction 00 l s to drug Carvedil Propensi Active Other (See Me thodi ol ty to Comments) 2 st adverse 00:00: Hospita reaction 00 l s to drug Meperidi Propensi Active Other (See Patient M ethodi ne ty to Comments) [address] adverse 00:00: why Hospita reaction 00 documente l s to d in mr drug Trazodon Propensi Active Other (See sweating Methodi e ty to Comments) 07-27 st adverse 00:00: Hospita reaction 00 l s to drug Tamsulos Propensi Active Other (See Dilation Methodi in ty to Comments) [address] adverse 00:00: and Hospita reaction 00 couldn't l s to see drug Meperidi Propensi Active Unknown - Patient Un grayson ne ty to See comments 2 unsure ity of adverse 00:00: why [place] reaction 00 documente Medic al s d in Branch mrPatient unsure why documente d in mr Metaxalo Propensi Active Unknown - Flushed Un grayson ne ty to See comments 2 and over it y of adverse 00:00: sedationF [place] reaction lushed Medical s and over Branch sedation MEPERIDI DRUG Active Other-Cmnt Univ ers NE INGREDI 2-04 ity of 00:00: [place] 00 Medical Branch METAXALO DRUG Active Other-Cmnt Univ ers NE INGREDI 2-04 ity of 00:00: [place] 00 Medical Branch QUETIAPI DRUG Active Other-Cmnt Univ ers NE INGREDI 2- ity of 00:00: [place] 00 Medical Branch Quetiapi Propensi Active Other - See akathisi a Univers ne ty to comments 2 akathisia ity o f adverse 00:00: [place] reaction 00 Medical s Branch Metoprol Propensi Active Other (See But does Methodi ol ty to Comments) [address] adverse 00:00: for afib Hospita reaction 00 ??? l s to drug Gabapent Propensi Active Other (See Flushed M ethodi in ty to Comments) 2- and over st adverse 00:00: sedation Hospita reaction 00 l s to drug Acebutol Propensi Active Other (See All beta Methodi ol ty to Comments) 07-[address] adverse 00:00: cause Hospita reaction 00 bradycard l s to ia drug Proprano Propensi Active Other (See Me thodi lol ty to Comments) 07-27 st adverse 00:00: Hospita reaction 00 l s to drug Quetiapi Propensi Active Other (See akathisia Methodi ne ty to Comments) 2 st adverse 00:00: Hospita reaction 00 l s to drug Metaxalo Propensi Active Other (See Flushed M ethodi ne ty to Comments) [address] adverse 00:00: sedation Hospita reaction 00 l s to drug Butorpha Propensi Active Other (See tachycard Methodi nol ty to Comments) [address] Tartrate adverse 00:00: Hospita reaction 00 l s to drug Tramadol Propensi Active Palpitations Methodi ty to 07-27 st adverse 00:00: Hospita reaction 00 l s to drug Atenolol Propensi Active Other (See Me thodi ty to Comments) 07-27 st adverse 00:00: Hospita reaction 00 l s to drug Adhesive Propensi Active Other - See 2016-06 Paper U nivers Tape-Edith ty to comments 06-24 tape only ity of icones adverse 00:00: !! Tears [place] reaction 00 skin.Othe Medic al s r Branch reaction( s): Other (see comments) Paper tape only !! Tears skin. ADHESIVE DRUG Active Other-Cmnt 2016-06 Univ ers TAPE-EDITH 06-24 ity of ICONES 00:00: [place] 00 Medical Branch SPIRONOL DRUG Active Other-Cmnt Univ ers ACTONE INGREDI 03-18 ity of 00:00: Medical Branch Spironol Propensi Active Other - See Breast U nivers actone ty to comments 03-18 tendernes ity o f adverse 00:00: sOther [place] reaction 00 reaction( Medic al s s): Other Branch (see comments) Breast tendernes s TRAZODON DRUG Active Other-Cmnt Univ ers E INGREDI 11-11 ity of 00:00: [place] 00 Medical Branch Trazodon Propensi Active Other - See Hot U nivers e ty to comments 5-22 flashesOt ity o f adverse 00:00: her [...] sedationF lushed and over sedationd iaphoreti c GABAPENT DRUG Active Other-Cmnt Univ ers IN INGREDI 1-13 ity of 00:00: [place] 00 Medical Branch Tamsulos Propensi Active Other - See 2015-06 U nivers in Hcl ty to comments 2-21 ity of adverse 00:00: [place] reaction 00 Medical s Branch BUTORPHA DRUG Active Med Other-Cmnt 2015-06 Univ ers NOL INGREDI 2-21 ity of TARTRATE 00:00: [place] 00 Medical Branch TAMSULOS DRUG Active Other-Cmnt 2015-06 Univ ers IN HCL INGREDI 2-21 ity of 00:00: [place] 00 Medical Branch Butorpha Propensi Active Other - See 2015-06 tachycar d Univers nol ty to comments 2-21 ia ity of Tartrate adverse 00:00: [place] reaction 00 Medical s to Branch drug Tramadol Propensi Active Tachycard [facility] ty to 9-28 ia [facility] - adverse 00:00: Medical reaction 00 Center s Beta-Blo Propensi Active Other - See Per [...] iaBut does take PRN for afib ??? BETA-BLO Drug Active Med Other-Cmnt Univ ers CKERS Class 6-14 ity of (BETA-AD 00:00: [place] RENERGIC 00 Medical BLOCKING Branch AGTS) Beta-Blo Propensi Active Per [facility] c[facility] ty to 6-14 patient [facility] - (Beta-Ad adverse 00:00: "heart Medical renergic reaction 00 rate Center Blocking s drop, Agts) lethargic , weak" Tamsulos Propensi Active "too over [facility] in ty to 6-14 power" [facility] - adverse 00:00: Medical reaction 00 Center s Butorpha Propensi Active "tachycar [facility] nol ty to 6-14 farzad" [facility] - Tartrate adverse 00:00: Medical reaction 00 Center s Alfuzosi Propensi Active Unknown - 2014-06 Uni vers n ty to See comments 1-12 ity of adverse 00:00: [place] reaction 00 Medical s Branch ALFUZOSI DRUG Active Unknown-Cmnt 2014-06 Un grayson N INGREDI 1-12 ity of 00:00: [place] 00 [facility] tramadol DA Active [facility] 3-10 Clear 00:00: [place] 00 [facility] butorpha DA Active [facility] nol 3-10 Clear 00:00: [place] 00 [facility] tamsulos DA Active [facility] in 3-10 Clear 00:00: [place] 00 [facility] TRAMADOL DRUG Active Med Unknown-Cmnt Un grayson INGREDI 3-10 ity of 00:00: [place] 00 Medical Branch TAMSULOS DRUG Active Other-Cmnt Univ ers IN INGREDI 3-10 ity of 00:00: [place] 00 Medical Branch Tamsulos Propensi Active Other - See Dilation Univers in ty to comments 3-10 of eyes ity of adverse 00:00: and [place] reaction 00 couldn't Medica l s see"too Branch over power"Dil ation of eyes and couldn't see"too over power" Tramadol Propensi Active Palpitations Tachyca rd Univers ty to 3-10 iaOther ity of adverse 00:00: reaction( [place] reaction 00 s): Other Medic al s to (see Branch drug comments) Tachycard iaTachyca rdiaTachy cardia traMADol traMADol Active Memori a l Freddy beta beta Active Memoria blockers blockers nadira Hayes Flomax Flomax Active Memoria nadira Hayes Stadol Stadol Active Memoria nadira Hayes Family History Family Member Diagnosis Comments Start Date Stop Date Source Natural father Asthma [facility] Natural father CHF (congestive Unive rsity of heart failure) [facility] Natural father COPD (chronic Univers ity of obstructive [place] [facility] pulmonary disease) Branch Natural [facility] High [facility] Natural father Hypertension Universi ty [facility] Natural father Leukemia [facility] Natural father Heart disease [facility] Maternal Uncle Leukemia [facility] Natural mother High cholesterol Univ ersity [facility] Natural mother Hypertension Universi [facility] Paternal Cancer [place] [facility] [place] [facility] Father Asthma [facility] Father CHF (congestive Universit y of heart failure) [facility] Father COPD (chronic University obstructive [place] [facility] pulmonary disease) Branch Father High cholesterol Universi [facility] Father Hypertension [place] [facility] Father Leukemia [facility] Mother High cholesterol Universi [facility] Mother Hypertension University o [facility] Paternal Cancer [place] [facility] Social History Social Habit Start Date Stop Date Quantity Comments Source Exposure to Not sure [facility] SARS-CoV-2 (event) [facility] Alcohol intake 2021-08-28 2021-08-28 0 /d University of 00:00:00 00:00:00 [facility] Education 2020-09-28 2020-09-28 21 University of 00:00:00 00:00:00 [facility] Tobacco Comment 2020-09-28 2020-09-28 quit in 2009 Univers ity of 00:00:00 00:00:00 [facility] Cigarettes smoked 2016-06-26 2016-06-26 Univers ity of current (pack per 00:00:00 00:00:00 ) - Reported Branch Cigarette 2016-06-26 2016-06-26 University of pack-years 00:00:00 00:00:00 [facility] Tobacco use and 2016-06-26 2016-06-26 Never used Universit y of exposure 00:00:00 00:00:00 [facility] History of tobacco 2014-06-26 Cigarette Smoker University of use 00:00:00 [facility]igned At [birth year] [facility] Smoking Status Start Date Stop Date Source Never smoked tobacco [facility] Former smoker 2016-06-26 00:00:00 2016-06-26 00:00:00 [facility] Medications Ordered Filled Start Stop Current Ordering Indication Dosage Frequency Signature Comments Components Source Medication Medication Date Date Medication? Clinician (SIG) Name Name pyridoxine Yes Take by Uni vers HCl, 3-20 mouth ity of vitamin B6, 17:05: daily. [place] (VITAMIN 14 Medical B-6 ORAL) Branch methocarbam Yes 750mg Take 750 U nivers ol 750 mg 3-20 mg by ity of tablet 17:05: mouth 2 [place] 14 (two) Medical times Branch daily. buprenorphi Yes 8mg Place 8 mg Univers ne-naloxone 3-20 under the ity of (SUBOXONE) 17:05: tongue [place] 8-2 mg 14 every 12 Medical sublingual (twelve) Branc h film hours as needed for Pain (scale 7-10). Cholecalcif Yes 1{tbl} Take 1 Un grayson [place], 3-20 tablet by ity of Vitamin D3, 17:05: mouth [place] (VITAMIN 14 daily. Medical D3) 2,000 Branch unit tablet ZINC ORAL Yes Take by [facility] ers 3-20 mouth ity of 17:05: daily. [address] Branch COQ10, Yes Take by [facility] UBIQUINOL, 3-20 mouth. ity of ORAL 17:05: [address] Branch levocarniti Yes Take by [facility] [place] ne 3-20 mouth. ity of (L-CARNITIN 17:05: [place] E ORAL) 14 Medical Branch metoprolol Yes 12.5mg Take 12.5 Univers tartrate 25 3-20 mg by ity of mg tablet 17:05: mouth. [address] Branch pyridoxine Yes Take by Uni vers HCl, 3-20 mouth ity of vitamin B6, 17:05: daily. [place] (VITAMIN 14 Medical B-6 ORAL) Branch methocarbam Yes 750mg Take 750 U nivers ol 750 mg 3-20 mg by ity of tablet 17:05: mouth [address] [place] [address] (two) Medical times Branch daily. buprenorphi Yes 8mg Place 8 mg Univers ne-naloxone 3-20 under the ity of (SUBOXONE) 17:05: tongue [place] 8-2 mg 14 every 12 Medical sublingual (twelve) Branc h film hours as needed for Pain (scale 7-10). Cholecalcif Yes 1{tbl} Take 1 [facility] [place], 3-20 tablet by ity of Vitamin D3, 17:05: mouth [place] (VITAMIN 14 daily. Medical D3) 2,000 Branch unit tablet ZINC ORAL Yes Take by Univ ers 3-20 mouth ity of 17:05: daily. [address] COQ10, Yes Take by Univers UBIQUINOL, 3-20 mouth. ity of ORAL 17:05: [address] levocarniti Yes Take by Un [place] ne 3-20 mouth. ity of (L-CARNITIN 17:05: [place] E ORAL) [address] [place] [address] Branch metoprolol Yes 12.5mg Take 12.5 Univers tartrate 25 3-20 mg by ity of mg tablet 17:05: mouth. [address] pyridoxine Yes Take by Uni vers HCl, 3-20 mouth ity of vitamin B6, 17:05: daily. [facility] (VITAMIN 14 Medical B-6 ORAL) Pre[place] methocarbam Yes 750mg Take 750 U nivers ol 750 mg 3-20 mg by ity of tablet 17:05: mouth [address] [place] [address] (two) Medical times Preemption daily. buprenorphi Yes 8mg Place 8 mg Univers ne-naloxone 3-20 under the ity of (SUBOXONE) 17:05: tongue [place] 8-2 mg 14 every 12 Medical sublingual (twelve) Branc h film hours as needed for Pain (scale 7-10). Cholecalcif Yes 1{tbl} Take 1 [facility] [place], 3-20 tablet by ity of Vitamin D3, 17:05: mouth [place] (VITAMIN 14 daily. Medical D3) 2,000 Branch unit tablet ZINC ORAL 0 Yes Take by Univ ers 3-20 mouth ity of 17:05: daily. [place] [address] Medical Branch COQ10, Yes Take by Univers UBIQUINOL, 3-20 mouth. ity of ORAL 17:05: [place] [address] Medical Branch levocarniti Yes Take by Un [place] ne 3-20 mouth. ity of (L-CARNITIN 17:05: [place] E ORAL) Medical Branch metoprolol Yes 12.5mg Take 12.5 Univers tartrate 25 3-20 mg by ity of mg tablet 17:05: mouth. [address] Branch pyridoxine Yes Take by Uni vers HCl, 3-20 mouth ity of vitamin B6, 17:05: daily. [facility] (VITAMIN 14 Medical B-6 ORAL) Branch methocarbam Yes 750mg Take 750 U nivers ol 750 mg 3-20 mg by ity of tablet 17:05: mouth [address] [place] [address] (two) Medical times Branch daily. buprenorphi Yes 8mg Place 8 mg [facility] ne-naloxone 3-20 under the ity of (SUBOXONE) 17:05: tongue [place] 8-2 mg 14 every 12 Medical sublingual (twelve) Branc h film hours as needed for Pain (scale 7-10). Cholecalcif Yes 1{tbl} Take 1 [place], 3-20 tablet by ity of Vitamin D3, 17:05: mouth [place] (VITAMIN 14 daily. Medical D3) 2,000 Branch unit tablet ZINC ORAL Yes Take by [facility] ers 3-20 mouth ity of 17:05: daily. [address] Branch COQ10, Yes Take by Univers UBIQUINOL, 3-20 mouth. ity of ORAL 17:05: [place] [address] Medical Branch levocarniti Yes Take by Un [place] ne 3-20 mouth. ity of (L-CARNITIN 17:05: [place] E ORAL) Medical Branch metoprolol Yes 12.5mg Take 12.5 Univers tartrate 25 3-20 mg by ity of mg tablet 17:05: mouth. [address] sulfur 2021- No [id number] 5mL 5 mL, Univer s hexafluorid 3-20 03-20 Intravenou i ty of e microsphr 15:30: 14:34 s, ONCE, 1 [place] (LUMASON) 00 :00 dose, On Medica l injection 5 [facility] mL 09/09/21 at 1030, Routine
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 bumetanide 2021-0 Yes 3mg 3 mg, Univer s (BUMEX) 3-20 Oral, ity of tablet 3 mg 14:00: QAM+PM, [place] 00 First dose Medical on [facility] 09/09/21 at 0900, Until Discontinu ed, Routine polyethylen 2021-0 Yes 17g 17 g, Unive rs e glycol 3-20 Oral, ity of 3350 powder 14:00: DAILY, [place] 17 g 00 First dose Medical on [facility] 09/09/21 at 0900, Until Discontinu ed metOLazone 2021-0 Yes 2.5mg 2.5 mg, Uni vers (ZAROXOLYN) 3-20 Oral, ity of tablet 2.5 14:00: QWEEKLY, [place] mg 00 First dose Medical on [facility] 09/09/21 at 0900, Until Discontinu ed, Routine magnesium 2021-0 Yes 400mg 400 mg, Univ ers oxide 3-20 Oral, ity of (MAG-OX 14:00: DAILY, [place] 400) tablet 00 First dose Me dical 400 mg on [facility] 09/09/21 at 0900, Until Discontinu ed isosorbide 2021-0 Yes 30mg 30 mg, Unive rs mononitrate 3-20 Oral, ity of (IMDUR) 24 14:00: DAILY, [place] hr tablet 00 First dose Medi marium 30 mg on [facility] 09/09/21 at 0900, Until Discontinu ed, Routine foLIC acid 2021-0 Yes 1mg 1 mg, Univer s (FOLATE) 3-20 Oral, ity of tablet 1 mg 14:00: DAILY, [place] 00 First dose Medical on [facility] 09/09/21 at 0900, Until Discontinu ed, Routine empaglifloz 2021-0 Yes 10mg 10 mg, Univ ers in 3-20 Oral, ity of (JARDIANCE) 14:00: DAILY, [place] tablet 10 00 First dose Medi marium mg on [facility] 09/09/21 at 0900, Until Discontinu ed, Routine
Is this a home medication ? Yes
Has this patient brought their own medication ? No
Marty daniel will dispense the medication from inpatient. Pharmacy will dispense the medication from inpatient.
[facility] medication is not allowed unless the patient is maintained on this medication at home, and home supply is unavailabl e. Does this order meet the criteria for inpatient ordering? Yes diltiazem Yes 120mg 120 mg, Univ ers XR 3-20 Oral, ity of (DILT-XR) 14:00: DAILY, [place] capsule 120 00 First dose Me dical mg on [facility] 09/09/21 at 0900, Until Discontinu ed, Routine clopidogreL Yes 75mg 75 mg, Univ ers (PLAVIX) 75 3-20 Oral, ity of mg tablet 14:00: DAILY, [place] 75 mg 00 First dose Medical on [facility] 09/09/21 at 0900, Until Discontinu ed, Routine buPROPion Yes 150mg 150 mg, Univ ers XL 3-20 Oral, ity of (WELLBUTRIN 14:00: DAILY, [place] XL) tablet 00 First dose Med ical 150 mg on [facility] 09/09/21 at 0900, Until Discontinu ed, Routine ARIPiprazol Yes 15mg 15 mg, Univ ers e (ABILIFY) 3-20 Oral, ity of tablet 15 14:00: DAILY, [place] mg 00 First dose Medical on [facility] 09/09/21 at 0900, Until Discontinu ed, Routine allopurinoL Yes 300mg 300 mg, Un [place] (ZYLOPRIM) 3-20 Oral, ity of tablet 300 14:00: DAILY, [place] mg 00 First dose Medical on [facility] 09/09/21 at 0900, Until Discontinu ed, Routine aspirin 2021-0 Yes 324mg 324 mg, Univer s chewable 3-20 Oral, ity of tablet 324 14:00: DAILY, [place] mg 00 First dose Medical on [facility] 09/09/21 at 0900, Until Discontinu ed, Routine KCL 20 0 Yes 40meq 40 mEq, Univers mEq/15 mL 3-20 Oral, BID, ity of solution 40 13:00: First dose [place] mEq 00 on [facility] 09/09/21 at Branch 0800, Until Discontinu ed, Routine pantoprazol 2021-0 Yes 40mg 40 mg, Univ ers e 3-20 Oral, BID, ity of (PROTONIX) 13:00: First dose [place] EC tablet 00 on [facility] 40 mg 09/09/21 at Branch 0800, Until Discontinu ed, Routine methocarbam 2021-0 Yes 750mg 750 mg, [facility] [place] oL 3-20 Oral, BID, ity of (ROBAXIN) 13:00: First dose [place] tablet 750 00 on [facility] mg 09/09/21 at Branch 0800, Until Discontinu ed, Routine ferrous 2021-0 Yes 325mg 325 mg, Univer s sulfate 3-20 Oral, TID ity of tablet 325 13:00: MEALS, [place] mg 00 First dose Medical on [facility] 09/09/21 at 0800, Until Discontinu ed, Routine Sliding 2021-0 Yes Subcutaneo Univ ers Scale 3-20 us, AC, ity of Insulin-Reg 12:30: First dose [place] ular + Fsbg 00 on [place] [facility] 09/09/21 at Branch 0730, Until Discontinu ed, Routine nitroglycer 2021-0 Yes .4mg 0.4 mg, Uni vers in 3-20 Sublingual ity of (NITROSTAT) 05:49: , Q5MIN [place] sublingual 34 PRN, Medical tablet 0.4 Starting Branc h mg on 09/09/21 at 0049, Until Discontinu ed, Routine, Chest pain morpHINE 2021-0 Yes 4mg 4 mg, Slow Uni vers injection 4 3-20 IV Push, ity of mg 05:49: Q4HPRN, [place] 00 Starting Medical on [facility] 09/09/21 at 0049, Until Discontinu ed, Routine, Chest pain rivaroxaban 2021-0 Yes 1291 20mg 20 mg, Univ ers (XARELTO) 3-20 Oral, ity of tablet 20 05:30: DAILY, [place] mg 00 First dose Medical (after Branch last modificati on) on 09/09/21 at 0030, Until Discontinu ed, Routine clonazePAM 2021-0 Yes 1mg 1 mg, Univer s (KLONOPIN) 3-20 Oral, TID, ity of tablet 1 mg 05:30: First dose [place] 00 (after Medical last Branch modificati on) on [place] 09/09/21 at 0030, Until Discontinu ed, Routine erythromyci 2021-0 Yes .5[in_u 0.5 Inch, Univers n 3-20 s] Right Eye, ity of (ILOTYCIN) 05:15: QID, First [place] 5 mg/gram 00 dose on [facility] (0.5 %) [facility] ophthalmic 09/09/21 at ointment 0015, 0.5 Inch Until Discontinu ed, Routine atorvastati 2021-0 Yes 40mg 40 mg, Univ ers n (LIPITOR) 3-20 Oral, QHS, it y of tablet 40 05:15: First dose [place] mg 00 on [facility] 09/09/21 at Branch 0015, Until Discontinu ed, Routine aMILoride 2021-0 Yes 10mg 10 mg, Univer s (MIDAMOR) 3-20 Oral, BID, ity of tablet 10 05:15: First dose [place] mg 00 on [facility] 09/09/21 at Branch 0015, Until Discontinu ed, Routine glucagon 2021-0 Yes 1mg 1 mg, Univers (GLUCAGEN 3-20 Intramuscu ity of DIAGNOSTIC 04:57: lar, PRN, [place] KIT) 56 Starting Medical injection 1 on [facility] 09/08/21 at 2357, Until Discontinu ed, LIVIA, Blood Glucose < or = 70 mg/dL and patient is unable to swallow or has mental changes. dextrose 50 2021-0 Yes 25mL 25 mL, Univ ers % in water 3-20 Slow IV ity of (D50W) 04:57: Push, PRN, [place] injection 56 Starting Medica l 25 mL on [facility] 09/08/21 at 2357, Until Discontinu ed, LIVIA, Blood Glucose < or = 70 mg/dL and patient is unable to swallow or has mental status changes. ondansetron 2021-0 Yes 4mg 4 mg, Slow Univers (ZOFRAN 3-20 IV Push, ity of (PF)) 04:57: Q6HPRN, [place] injection 4 41 Starting Medi marium mg on [facility] 09/08/21 at 2357, Until Discontinu ed, Routine, Nausea and Vomiting (N/V) acetaminoph Yes 650mg 650 mg, Un [place] en -20 Oral, ity of (TYLENOL) 04:57: Q6HPRN, [place] tablet 650 30 Starting Medic al mg on [facility] Branch 09/08/21 at 2357, Until Discontinu ed, Routine, Pain (scale 1-3) docusate Yes 100mg 100 mg, Unive rs (COLACE) 3-20 Oral, ity of capsule 100 04:52: BIDPRN, [place] mg 27 Starting Medical on [facility] Branch 09/08/21 at 235, Until Discontinu ed, Routine, Constipati on buprenorphi Yes 8mg 8 mg, Unive rs ne-naloxone -20 Sublingual it y of (SUBOXONE) 04:51: , [id number], [place] 8-2 mg 02 Starting Medical sublingual on [facility] Branch film 8 mg 09/08/21 at 2351, Until Discontinu ed, Routine, Pain (scale 7-10)
R kathrin for non-formul philip use: SPECIFIC INDICATION FOR NONFORMULA RY PRODUCT
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 geology faculty member approving Non-formul philip medication : YIFAN ROMERO morpHINE 2021- No 4mg 4 mg, Slow Un [place] injection 4 09-09-20 IV Push, ity of mg 02:11: 02:13 ONCE, 1 [place] 00 :00 dose, On Medical [facility] Branch 09/08/21 at 2114, STAT NaCl 0.9% 2021- No 500mL at 999 Univ ers (NS) bolus 09-09 03-20 mL/hr, 500 it y of infusion 01:45: 00:59 mL, IV [place] 500 mL 00 :00 Infusion, Medical ONCE, 1 Branch dose, On [facility] 09/08/21 at 2044, STAT nitroglycer 2021- No .4mg 0.4 mg, Un [place] in 09-09 03-20 Sublingual ity of (NITROSTAT) 01:45: 01:18 , ONCE, 1 [place] sublingual 00 :00 dose, On Medic al tablet 0.4 Sat Branch mg 09/08/21 at 2044, LIVIA ondansetron 2021-2021- No 4mg 4 mg, Slow Univers (ZOFRAN 3-20 03-20 IV Push, ity of (PF)) 01:40: 01:41 ONCE, 1 [place] injection 4 00 :00 dose, On Medi marium mg Sat Branch 09/08/21 at 2044, LIVIA rivaroxaban Yes 1291 20mg Take 1 Univ ers (XARELTO) 3-18 tablet by ity o f 20 mg 00:00: mouth [place] tablet 00 daily. Medical Indication Branch s: a clot in the lung rivaroxaban Yes 1291 20mg Take 1 Univ ers (XARELTO) 3-18 tablet by ity o f 20 mg 00:00: mouth [place] tablet 00 daily. Medical Indication Branch s: a clot in the lung erythromyci Yes [id number] .5[in_u Place 0.5 Univers n 5 mg/gram 3-18 [id number] s] Inches in i ty of (0.5 %) 00:00: right eye [place] ophthalmic 00 4 (four) Medic al ointment times Branch daily. rivaroxaban Yes 1291 20mg Take 1 Univ ers (XARELTO) 3-18 tablet by ity o f 20 mg 00:00: mouth [place] tablet 00 daily. Medical Indication Branch s: a clot in the lung erythromyci Yes [id number] .5[in_u Place 0.5 Univers n 5 mg/gram 3-18 [id number] s] Inches in i ty of (0.5 %) 00:00: right eye [place] ophthalmic 00 4 (four) Medic al ointment times Branch daily. rivaroxaban Yes 1291 20mg Take 1 Univ ers (XARELTO) 3-18 tablet by ity o f 20 mg 00:00: mouth [place] tablet 00 daily. Medical Indication Branch s: a clot in the lung erythromyci Yes [id number] .5[in_u Place 0.5 Univers n 5 mg/gram 3-18 [id number] s] Inches in i ty of (0.5 %) 00:00: right eye [place] ophthalmic 00 4 (four) Medic al ointment times Branch daily. furosemide 2021- No 80mg Take 80 mg Univers 80 mg -15 15 by mouth. ity of tablet 17:59: 00:00 [place] 50 :00 Medical Branch metoprolol 0 Yes 12.5mg Take 12.5 Univers tartrate 25 3-15 mg by ity of mg tablet 17:59: mouth. [place] 46 Medical Branch tiZANidine 2021- No 4mg Take 4 mg U nivers 4 mg tablet 09-0415 by mouth. it y of 17:59: 00:00 [place] 22 :00 Medical Branch pyridoxine Yes Take by Uni vers HCl, 3-15 mouth. ity of vitamin B6, 17:58: [place] (VITAMIN 44 Medical B-6 ORAL) Branch methocarbam Yes 750mg Take 750 U nivers ol 750 mg 3-15 mg by ity of tablet 17:58: mouth 2 [place] 42 (two) Medical times Branch daily. buprenorphi Yes 8mg Place 8 mg Univers ne-naloxone 15 under the ity of (SUBOXONE) 17:58: tongue [place] 8-2 mg 41 every 12 Medical sublingual (twelve) Branc h film hours as needed for Pain (scale 7-10). Cholecalcif Yes Take by [facility] [place], 3-15 mouth. ity of Vitamin D3, 17:58: [place] (VITAMIN 38 Medical D3) 2,000 Branch unit tablet ZINC ORAL Yes Take by [facility] ers 3-15 mouth ity of 17:58: every [place] 38 other day. Medical Branch levocarniti Yes Take by Un [place] ne 3-15 mouth. ity of (L-CARNITIN 17:58: [place] E ORAL) 33 Medical Branch COQ10, 0 Yes Take by [facility] UBIQUINOL, 3-15 mouth. ity of ORAL 17:58: [place] 32 Medical Branch insulin 0 2021- No 10U inject 10 [facility] ers aspart -15 03-15 Units ity of U-100 100 17:58: 00:00 under the [place] unit/mL (3 01 :00 skin. Medical mL) Branch injection empaglifloz 0 Yes [id number] 10mg Take 1 Univers in 3-08 tablet by ity of (JARDIANCE) 00:00: mouth [place] 10 mg 00 daily Medical before Branch breakfast. dulaglutide 2021-0 Yes [id number] 3mg Inject 3 Univers (TRULICITY) 3-08 mg as ity of 3 mg/0.5 mL 00:00: directed [place] PnIj 00 weekly. Medical Branch metformin 2021-0 Yes [id number] 500mg Take 1 U nivers ER 500 mg 3-08 tablet by ity o f 24 hr 00:00: mouth [place] tablet 00 daily with Medical breakfast. Branch empaglifloz 2021-0 Yes [id number] 10mg Take 1 Univers in 3-08 tablet by ity of (JARDIANCE) 00:00: mouth [place] 10 mg 00 daily Medical before Branch breakfast. dulaglutide 2021-0 Yes [id number] 3mg Inject 3 Univers (TRULICITY) 3-08 mg as ity of 3 mg/0.5 mL 00:00: directed [place] PnIj 00 weekly. Medical Branch metformin 2021-0 Yes [id number] 500mg Take 1 U nivers ER 500 mg 3-08 tablet by ity o f 24 hr 00:00: mouth [place] tablet 00 daily with Medical breakfast. Branch empaglifloz 2021-0 Yes [id number] 10mg Take 1 Univers in 3-08 tablet by ity of (JARDIANCE) 00:00: mouth [place] 10 mg 00 daily Medical before Branch breakfast. dulaglutide 2021-0 Yes [id number] 3mg Inject 3 Univers (TRULICITY) 3-08 mg as ity of 3 mg/0.5 mL 00:00: directed [place] PnIj 00 weekly. Medical Branch metformin 2021-0 Yes [id number] 500mg Take 1 U nivers ER 500 mg 3-08 tablet by ity o f 24 hr 00:00: mouth [place] tablet 00 daily with Medical breakfast. Branch empaglifloz 2021-0 Yes [id number] 10mg Take 1 Univers in 3-08 tablet by ity of (JARDIANCE) 00:00: mouth [place] 10 mg 00 daily Medical before Branch breakfast. dulaglutide 2021-0 Yes [id number] 3mg Inject 3 Univers (TRULICITY) 3-08 mg as ity of 3 mg/0.5 mL 00:00: directed [place] PnIj 00 weekly. Medical Branch metformin 2021-0 Yes [id number] 500mg Take 1 U nivers ER 500 mg 3-08 tablet by ity o f 24 hr 00:00: mouth [place] tablet 00 daily with Medical breakfast. Branch empaglifloz 2021-0 Yes [id number] 10mg Take 1 Univers in 3-08 tablet by ity of (JARDIANCE) 00:00: mouth [place] 10 mg 00 daily Medical before Branch breakfast. dulaglutide 2021-0 Yes [id number] 3mg Inject 3 Univers (TRULICITY) 3-08 mg as ity of 3 mg/0.5 mL 00:00: directed [place] PnIj 00 weekly. Medical Branch metformin 2021-0 Yes [id number] 500mg Take 1 U nivers ER 500 mg 3-08 tablet by ity o f 24 hr 00:00: mouth [place] tablet 00 daily with Medical breakfast. Branch empaglifloz 2021-0 Yes [id number] 10mg Take 1 Univers in 3-08 tablet by ity of (JARDIANCE) 00:00: mouth [place] 10 mg 00 daily Medical before Branch breakfast. dulaglutide 2021-0 Yes [id number] 3mg Inject 3 Univers (TRULICITY) 3-08 mg as ity of 3 mg/0.5 mL 00:00: directed [place] PnIj 00 weekly. Medical Branch metformin 2021-0 Yes [id number] 500mg Take 1 U nivers ER 500 mg 3-08 tablet by ity o f 24 hr 00:00: mouth [place] tablet 00 daily with Medical breakfast. Branch clonazePAM 2021-0 Yes [id number] Take 1 U nivers 1 mg tablet 3-04 pill PO in it y of 00:00: the AM, 1 [place] 00 PO in the Medical afternoon, Branch 1 pill PO in the evening. May take additional 1/2 pill as needed for acute anxiety. clonazePAM 2021-0 Yes [id number] Take 1 U nivers 1 mg tablet 3-04 pill PO in it y of 00:00: the AM, 1 [place] 00 PO in the Medical afternoon, Branch 1 pill PO in the evening. May take additional 1/2 pill as needed for acute anxiety. clonazePAM 2021-0 Yes [id number] Take 1 U nivers 1 mg tablet 3-04 pill PO in it y of 00:00: the AM, 1 [place] 00 PO in the Medical afternoon, Branch 1 pill PO in the evening. May take additional 1/2 pill as needed for acute anxiety. clonazePAM 2021-0 Yes [id number] Take 1 U nivers 1 mg tablet 3-04 pill PO in it y of 00:00: the AM, 1 [place] 00 PO in the Medical afternoon, Branch 1 pill PO in the evening. May take additional 1/2 pill as needed for acute anxiety. clonazePAM 2021-0 Yes [id number] Take 1 U nivers 1 mg tablet 3-04 pill PO in it y of 00:00: the AM, 1 [place] 00 PO in the Medical afternoon, Branch 1 pill PO in the evening. May take additional 1/2 pill as needed for acute anxiety. clonazePAM 2021-0 Yes [id number] Take 1 U nivers 1 mg tablet 3-04 pill PO in it y of 00:00: the AM, 1 [place] 00 PO in the Medical afternoon, Branch 1 pill PO in the evening. May take additional 1/2 pill as needed for acute anxiety. PARoxetine 2021- No 30mg Take 30 mg Univers 30 mg 3-03 03-03 by mouth. ity of tablet 15:32: 00:00 [place] 39 :00 [facility] ARIPiprazol 0 Yes [id number] 15mg Take 1 Univers e 15 mg 3-03 tablet by ity of tablet 00:00: mouth [place] 00 daily. Medical Branch desvenlafax 2021-0 Yes [id number] 200mg Take 2 Univers ine 3-03 tablets by ity of succinate 00:00: mouth [place] (PRISTIQ) 00 daily. Medical 100 mg 24 Branch hr tablet ARIPiprazol 2021-0 Yes [id number] 15mg Take 1 Univers e 15 mg 3-03 tablet by ity of tablet 00:00: mouth [place] 00 daily. Medical Branch desvenlafax 2021-0 Yes [id number] 200mg Take 2 Univers ine 3-03 tablets by ity of succinate 00:00: mouth [place] (PRISTIQ) 00 daily. Medical 100 mg 24 Branch hr tablet ARIPiprazol 2021-0 Yes [id number] 15mg Take 1 Univers e 15 mg 3-03 tablet by ity of tablet 00:00: mouth [place] 00 daily. [facility] desvenlafax 2021-0 Yes [id number] 200mg Take 2 Univers ine 3-03 tablets by ity of succinate 00:00: mouth [place] (PRISTIQ) 00 daily. Medical 100 mg 24 Branch hr tablet ARIPiprazol 2021-0 Yes [id number] 15mg Take 1 Univers e 15 mg 3-03 tablet by ity of tablet 00:00: mouth [place] 00 daily. Medical Branch desvenlafax 2021-0 Yes [id number] 200mg Take 2 Univers ine 3-03 tablets by ity of succinate 00:00: mouth [place] (PRISTIQ) 00 daily. Medical 100 mg 24 Branch hr tablet ARIPiprazol 2021-0 Yes [id number] 15mg Take 1 Univers e 15 mg 3-03 tablet by ity of tablet 00:00: mouth [place] 00 daily. Medical Branch desvenlafax 2021-0 Yes [id number] 200mg Take 2 Univers ine 3-03 tablets by ity of succinate 00:00: mouth [place] (PRISTIQ) 00 daily. Medical 100 mg 24 Branch hr tablet ARIPiprazol 2021-0 Yes [id number] 15mg Take 1 Univers e 15 mg 3-03 tablet by ity of tablet 00:00: mouth [place] 00 daily. Medical Branch desvenlafax 2021-0 Yes [id number] 200mg Take 2 Univers ine 3-03 tablets by ity of succinate 00:00: mouth [place] (PRISTIQ) 00 daily. Medical 100 mg 24 Branch hr tablet buPROPion 2021-0 Yes [id number] 150mg Take 1 U nivers XL 150 mg 3-02 tablet by ity o f 24 hr 00:00: mouth [place] tablet 00 daily. Medical Branch buPROPion 2021-0 Yes [id number] 150mg Take 1 U nivers XL 150 mg 3-02 tablet by ity o f 24 hr 00:00: mouth [place] tablet 00 daily. [facility] Branch buPROPion 2021-0 Yes [id number] 150mg Take 1 U nivers XL 150 mg 3-02 tablet by ity o f 24 hr 00:00: mouth [place] tablet 00 daily. [facility] Branch buPROPion 2021-0 Yes [id number] 150mg Take 1 U nivers XL 150 mg 3-02 tablet by ity o f 24 hr 00:00: mouth [place] tablet 00 daily. [facility] Branch buPROPion 2021-0 Yes [id number] 150mg Take 1 U nivers XL 150 mg 3-02 tablet by ity o f 24 hr 00:00: mouth [place] tablet 00 daily. [facility] Branch buPROPion Yes [id number] 150mg Take 1 U nivers XL 150 mg 3-02 tablet by ity o f 24 hr 00:00: mouth [place] tablet 00 daily. Medical Branch isosorbide Yes [id number] 30mg Take 0.5 Univers mononitrate 3-01 tablets by it y of 60 mg 24 hr 00:00: mouth [place] tablet 00 daily. Medical Branch isosorbide Yes [id number] 30mg Take 0.5 Univers mononitrate 3-01 tablets by it y of 60 mg 24 hr 00:00: mouth [place] tablet 00 daily. Medical Branch isosorbide Yes [id number] 30mg Take 0.5 Univers mononitrate 3-01 tablets by it y of 60 mg 24 hr 00:00: mouth [place] tablet 00 daily. Medical Branch isosorbide Yes [id number] 30mg Take 0.5 Univers mononitrate 3-01 tablets by it y of 60 mg 24 hr 00:00: mouth [place] tablet 00 daily. Medical Branch isosorbide Yes [id number] 30mg Take 0.5 Univers mononitrate 3-01 tablets by it y of 60 mg 24 hr 00:00: mouth [place] tablet 00 daily. Medical Branch isosorbide Yes [id number] 30mg Take 0.5 Univers mononitrate 3-01 tablets by it y of 60 mg 24 hr 00:00: mouth [place] tablet 00 daily. Medical Branch empaglifloz 2021- No [id number] 10mg Take 1 Univers in 3-01 03-08 tablet by ity of (JARDIANCE) 00:00: 00:00 mouth [place] 10 mg 00 :00 daily Medical before Branch breakfast. proMETHazin Yes [id number] 25mg Take 1 Univers e 25 mg 2-16 tablet by ity of tablet 00:00: mouth [place] 00 every 6 Medical (six) Branch hours. For nausea. rivaroxaban 0 Yes [id number] 20mg Take 1 Univ ers (XARELTO) 2-16 tablet by ity o f 20 mg 00:00: mouth [place] tablet 00 daily. Medical Indication Branch s: a clot in the lung proMETHazin Yes [id number] 25mg Take 1 Univers e 25 mg 2-16 tablet by ity of tablet 00:00: mouth [place] 00 every 6 Medical (six) Branch hours. For nausea. proMETHazin 2-0 Yes [id number] 25mg Take 1 Univers e 25 mg 2-16 tablet by ity of tablet 00:00: mouth [place] 00 every 6 Medical (six) Branch hours. For nausea. proMETHazin 2-0 Yes [id number] 25mg Take 1 Univers e 25 mg 2-16 tablet by ity of tablet 00:00: mouth [place] 00 every 6 Medical (six) Branch hours. For nausea. proMETHazin 2021-0 Yes [id number] 25mg Take 1 Univers e 25 mg 2-16 tablet by ity of tablet 00:00: mouth [place] 00 every 6 Medical (six) Branch hours. For nausea. proMETHazin 2021-0 Yes [id number] 25mg Take 1 Univers e 25 mg 2-16 tablet by ity of tablet 00:00: mouth [place] 00 every 6 Medical (six) Branch hours. For nausea. rivaroxaban 2021-0 2- No [id number] 20mg Take 1 Uni vers (XARELTO) 2-16 03-17 tablet by ity of 20 mg 00:00: 00:00 mouth [place] tablet 00 :00 daily. Medical Indication Branch s: a clot in the lung rivaroxaban 2021-0 2021- No [id number] 20mg Take 1 [facility] vers (XARELTO) 2-16 03-17 tablet by ity of 20 mg 00:00: 00:00 mouth [place] tablet 00 :00 daily. Medical Indication Branch s: a clot in the lung Ranolazine 2-0 Yes 1000mg Take 1 [facility] vers 1,000 mg 2-15 tablet by ity of tablet 00:00: mouth 2 [place] 00 (two) Medical times Branch daily. Ranolazine 2022-0 Yes 1000mg Take 1 [facility] vers 1,000 mg 2-15 tablet by ity of tablet 00:00: mouth 2 [place] 00 (two) Medical times Branch daily. Ranolazine 2022-0 Yes 1000mg Take 1 [facility] vers 1,000 mg 2-15 tablet by ity of tablet 00:00: mouth 2 [place] 00 (two) Medical times Branch daily. Ranolazine 2022-0 Yes 1000mg Take 1 [facility] vers 1,000 mg 2-15 tablet by ity of tablet 00:00: mouth 2 (two) Medical times Branch daily. Ranolazine 2021-0 Yes 1000mg Take 1 [facility] vers 1,000 mg 2-15 tablet by ity of tablet 00:00: mouth 2 (two) Medical times Branch daily. Ranolazine 2021-0 Yes 1000mg Take 1 [facility] vers 1,000 mg 2-15 tablet by ity of tablet 00:00: mouth 2 (two) Medical times Branch daily. buPROPion 0 2021- No [id number] 150mg Take 1 [facility] XL 150 mg 2-08 -02 tablet by ity of 24 hr 00:00: 00:00 mouth [place] tablet 00 :00 daily. Medical Branch atorvastati 2021-0 Yes 40mg Take 1 Univ ers n (LIPITOR) 2-07 tablet by ity of 40 mg 00:00: mouth at [place] tablet 00 bedtime. Medical Branch bumetanide 2021-0 Yes [id number] 3mg Take 1.5 [facility] 2 mg tablet 2-07 tablets by it y of 00:00: mouth 2 (two) Medical times Branch daily. atorvastati 2021-0 Yes 40mg Take 1 [facility] ers n (LIPITOR) 2-07 tablet by ity of 40 mg 00:00: mouth at [place] tablet 00 bedtime. Medical Branch bumetanide 2021-0 Yes [id number] 3mg Take 1.5 [facility] 2 mg tablet 2-07 tablets by it y of 00:00: mouth 2 [place] (two) Medical times Branch daily. atorvastati 2021-0 Yes 40mg Take 1 [facility] ers n (LIPITOR) 2-07 tablet by ity of 40 mg 00:00: mouth at [place] tablet 00 bedtime. Medical Branch bumetanide 2021-0 Yes [id number] 3mg Take 1.5 [facility] 2 mg tablet 2-07 tablets by it y of 00:00: mouth 2 (two) Medical times Branch daily. atorvastati 2021-0 Yes 40mg Take 1 [facility] ers n (LIPITOR) 2-07 tablet by ity of 40 mg 00:00: mouth at [place] tablet 00 bedtime. Medical Branch bumetanide 2021-0 Yes [id number] 3mg Take 1.5 [facility] 2 mg tablet 2-07 tablets by it y of 00:00: mouth 2 [place] 00 (two) Medical times Branch daily. atorvastati Yes 40mg Take 1 [facility] ers n (LIPITOR) 2-07 tablet by ity of 40 mg 00:00: mouth at [place] tablet 00 bedtime. Medical Branch bumetanide Yes [id number] 3mg Take 1.5 [facility] 2 mg tablet 2-07 tablets by it y of 00:00: mouth 2 [place] 00 (two) Medical times Branch daily. atorvastati Yes 40mg Take 1 [facility] ers n (LIPITOR) 2-07 tablet by ity of 40 mg 00:00: mouth at [place] tablet 00 bedtime. Medical Branch bumetanide Yes [id number] 3mg Take 1.5 [facility] 2 mg tablet 2-07 tablets by it y of 00:00: mouth 2 [place] 00 (two) Medical times Branch daily. clonazePAM 2021- No [id number] Take 1 [facility] 1 mg tablet 07-27-03 pill PO in i ty of 00:00: 00:00 the AM, 1 [place] 00 :00 PO in the Medical afternoon, Branch 1 pill PO in the evening. May take additional 1/2 pill as needed for acute anxiety. ARIPiprazol 2021- No [id number] 15mg Take 1 [facility] e 15 mg 07-18- tablet by ity of tablet 00:00: 00:00 mouth [place] 00 :00 daily. Medical Branch rivaroxaban 2021- No [id number] 20mg Take 1 [facility] vers (XARELTO) 18 -16 tablet by ity of 20 mg 00:00: 00:00 mouth [place] tablet 00 :00 daily. Medical Indication Branch s: a clot in the lung RANOLAZINE 2021- No [id number] TAKE 2 [facility] 500 mg 12 07-03-15 TABLETS BY ity of hr tablet 00:00: 00:00 MOUTH [place] 00 :00 TWICE Medical DAILY Branch furosemide Yes 80mg Take 80 mg U nivers 80 mg 1-08 by mouth. ity of tablet 16:30: [place] 17 Medical Branch insulin 0 Yes 10U inject 10 Unive rs aspart 1-08 Units ity of U-100 100 16:30: under the [place] as unit/mL (3 17 skin. Medical mL) Branch injection metoprolol 2021-0 Yes 12.5mg Take 12.5 [facility] tartrate 25 1-08 mg by ity of mg tablet 16:30: mouth. [place] [address] Medical Branch tiZANidine 2021-0 Yes 4mg Take 4 mg [facility] [place] 4 mg tablet 1-08 by mouth. ity of 16:30: [place] [address] Medical Branch albuterol 2021-0 Yes [id number] 2.5mg Inhale 3 [facility] 2.5 mg /3 1-08 mL every 4 ity of mL (0.083 00:00: (four) [place] %) 00 hours as Medical nebulizer needed for Bran ch solution Wheezing or Shortness of Breath. benzonatate 2021-0 Yes [id number] 200mg Take 2 [facility] 100 mg 1-08 capsules ity of capsule 00:00: by mouth [place] 00 every 8 Medical (eight) Branch hours as needed for Cough. bromphenira 2021-0 Yes [id number] 5mL Take 5 mL [facility] mine-pseudo 1-08 by mouth 4 it y of ephedrine-D 00:00: (four) [place] M (BROMFED 00 times Medical DM) 2-30-10 daily as Bran ch mg/5 mL needed for syrup Congestion /Allergies . guaiFENesin 2021-0 Yes [id number] 400mg Take 1 [facility] 400 mg 1-08 tablet by ity of tablet 00:00: mouth [place] 00 every 4 Medical (four) Branch hours as needed for Cough. ipratropium 2021-0 Yes [id number] .5mg Inhale 2.5 [facility] 0.02 % 1-08 mL every 4 ity of nebulizer 00:00: (four) [place] solution 00 hours as Medical needed for Branch Wheezing or Shortness of Breath. predniSONE 2021-0 Yes [id number] 40mg Take 2 [facility] 20 mg 1-08 tablets by ity of tablet 00:00: mouth [place] 00 daily. Medical Branch albuterol 2021-0 2022- No [id number] 2.5mg Inhale 3 [facility] 2.5 mg /3 1-08 03-15 mL every 4 ity of mL (0.083 00:00: 00:00 (four) [place] %) 00 :00 hours as Medical nebulizer needed for Bran ch solution Wheezing or Shortness of Breath. benzonatate 2021- No [id number] 200mg Take 2 [facility] 100 mg 06-30-15 capsules ity of capsule 00:00: 00:00 by mouth [place] 00 :00 every 8 Medical (eight) Branch hours as needed for Cough. bromphenira 2021- No [id number] 5mL Take 5 mL [facility] mine-pseudo 06-30 by mouth 4 i ty of ephedrine-D 00:00: 00:00 (four) [place] as M (BROMFED 00 :00 times Medical DM) 2-30-10 daily as Bran ch mg/5 mL needed for syrup Congestion /Allergies . guaiFENesin 2021- No [id number] 400mg Take 1 [facility] 400 mg 06-3015 tablet by ity of tablet 00:00: 00:00 mouth [place] 00 :00 every 4 Medical (four) Branch hours as needed for Cough. ipratropium 2021- No [id number] .5mg Inhale 2.5 [facility] 0.02 % 06-30-15 mL every 4 ity of nebulizer 00:00: 00:00 (four) [place] solution 00 :00 hours as Medical needed for Branch Wheezing or Shortness of Breath. predniSONE 2021- No [id number] 40mg Take 2 [facility] 20 mg 06-3015 tablets by ity of tablet 00:00: 00:00 mouth [place] 00 :00 daily. Medical Branch TRULICITY 3 2020-06- No [id number] INJECT 3MG [facility] mg/0.5 mL 07-26 UNDER THE ity of PnIj 00:00: 00:00 SKIN ONCE [place] 00 :00 A WEEK Medical Branch pantoprazol 2020-06 Yes [id number] 40mg Take 1 [facility] e 40 mg EC 1-30 tablet by ity of tablet 00:00: mouth 2 [place] 00 (two) Medical times Branch daily. pantoprazol 2020-06 Yes [id number] 40mg Take 1 [facility] e 40 mg EC 1-30 tablet by ity of tablet 00:00: mouth 2 [place] 00 (two) Medical times Branch daily. pantoprazol 2020-06 Yes [id number] 40mg Take 1 [facility] e 40 mg EC 1-30 tablet by ity of tablet 00:00: mouth 2 [place] 00 (two) Medical times Branch daily. pantoprazol 2020-06 Yes [id number] 40mg Take 1 [facility] e 40 mg EC 1-30 tablet by ity of tablet 00:00: mouth 2 [place] (two) Medical times Branch daily. pantoprazol 2020-06 Yes [id number] 40mg Take 1 [facility] e 40 mg EC 1-30 tablet by ity of tablet 00:00: mouth 2 [place] (two) Medical times Branch daily. pantoprazol 2020-06 Yes [id number] 40mg Take 1 [facility] e 40 mg EC 1-30 tablet by ity of tablet 00:00: mouth 2 [place] (two) Medical times Branch daily. desvenlafax 2020-06- No [id number] 200mg Take 2 [facility] ine 1-11 03-03 tablets by ity of succinate 00:00: 00:00 mouth [place] (PRISTIQ) 00 :00 daily. Medical 100 mg 24 Branch hr tablet buprenorphi 2020-[address] 8 mg Univers ne-naloxone -09 under the ity of (SUBOXONE) 08:10: tongue [place] 8-2 mg 19 every 12 Medical sublingual (twelve) Branc h film hours as needed for Pain (scale 7-10). Insulin 2020-06 Yes [id number] 30U inject 30 U nivers Glargine 0-10 Units ity of (LANTUS 00:00: under the [place] SOLOSTAR 00 skin Medical U-100 daily. Branch INSULIN) 100 unit/mL (3 mL) injection Insulin 2020-06- No [id number] 30U inject 30 [facility] Glargine 0-10 03-15 Units ity of (LANTUS 00:00: 00:00 under the [facility] SOLOSTAR 00 :00 skin Medical U-100 daily. Branch INSULIN) 100 unit/mL (3 mL) injection metformin 2021- No [id number] 500mg Take 1 [facility] ER 500 mg 9- 03-08 tablet by ity of 24 hr 00:00: 00:00 mouth [place] tablet 00 :00 daily with Medical breakfast. Branch clopidogreL Yes 75mg Take 1 Univ ers (PLAVIX) 75 9-10 tablet by ity of mg tablet 00:00: mouth [place] 00 daily. Medical Branch clopidogreL Yes 75mg Take 1 [facility] ers (PLAVIX) 75 9-10 tablet by ity of mg tablet 00:00: mouth [place] 00 daily. Medical Branch clopidogreL 0 Yes 75mg Take 1 Univ ers (PLAVIX) 75 9-10 tablet by ity of mg tablet 00:00: mouth [place] 00 daily. Medical Branch clopidogreL 0 Yes 75mg Take 1 [facility] ers (PLAVIX) 75 9-10 tablet by ity of mg tablet 00:00: mouth [place] 00 daily. Medical Branch clopidogreL 0 Yes 75mg Take 1 Univ ers (PLAVIX) 75 9-10 tablet by ity of mg tablet 00:00: mouth [place] 00 daily. Medical Branch clopidogreL Yes 75mg Take 1 [facility] ers (PLAVIX) 75 9-10 tablet by ity of mg tablet 00:00: mouth [place] 00 daily. Medical Branch pyridoxine Yes Take by Uni vers HCl, 02-28 mouth. ity of vitamin B6, 16:27: [place] (VITAMIN Medical B-6 ORAL) Branch methocarbam Yes 750mg Take 750 U nivers ol 750 mg 08 mg by ity of tablet 16:27: mouth 2 [place] 03 (two) Medical times Branch daily. Cholecalcif Yes Take by [facility] [place], 02-28 mouth. ity of Vitamin D3, 16:27: (VITAMIN 03 Medical D3) 2,000 Branch unit tablet ZINC ORAL Yes Take by Univ ers 02-28 mouth ity of 16:27: every [place] 03 other day. Medical Branch COQ10, Yes Take by [facility] UBIQUINOL, 02-28 mouth. ity of ORAL 16:27: [place] 03 Medical Branch levocarniti Yes Take by Un [place] ne 02-28 mouth. ity of (L-CARNITIN 16:27: [place] E ORAL) 03 Medical Branch isosorbide 2022- No [id number] 30mg Take 0.5 [facility] mononitrate 02-28- tablets by i ty of 60 mg 24 hr 00:00: 00:00 mouth [place] tablet 00 :00 daily. Medical Branch Insulin Yes USE [facility] [place], 7-19 DIRECTED ity of Disposable, 00:00: 1X EVERY [place] (YANNI PEN DAY. Medical NEEDLE) 32 DX:E11.59 Bran ch gauge x 5/32" Ndle Insulin 2020-0 Yes USE [facility] [place], 7- DIRECTED ity of Disposable, 00:00: 1X EVERY [place] (YANNI PEN DAY. Medical NEEDLE) 32 DX:E11.59 Bran ch gauge x 5/32" Ndle Insulin 2020-0 Yes USE [facility] [place], 7- DIRECTED ity of Disposable, 00:00: 1X EVERY [place] (YANNI PEN DAY. Medical NEEDLE) 32 DX:E11.59 Bran ch gauge x 5/32" Ndle Insulin 2020-0 Yes USE [facility] [place], 7- DIRECTED ity of Disposable, 00:00: 1X EVERY [place] (YANNI PEN DAY. Medical NEEDLE) 32 DX:E11.59 Bran ch gauge x 5/32" Ndle Insulin 2020-0 Yes USE [facility] [place], 7- DIRECTED ity of Disposable, 00:00: 1X EVERY [place] (YANNI PEN DAY. Medical NEEDLE) 32 DX:E11.59 Bran ch gauge x 5/32" Ndle Insulin 2020-0 Yes USE [facility] [place], 7- DIRECTED ity of Disposable, 00:00: 1X EVERY [place] (YANNI PEN DAY. Medical NEEDLE) 32 DX:E11.59 Bran ch gauge x 5/32" Ndle cyanocobala 2020-0 Yes [id number] 1000ug 1 mL by [facility] min 6-14 Intramuscu ity of (VITAMIN 00:00: lar route [place] B-12) 1,000 00 every 2 Medic al mcg/mL (two) Branch injection weeks. nystatin Yes [id number] Apply to [facility] 100,000 6-14 area(s) 2 ity of unit/gram 00:00: (two) [place] powder 00 times Medical daily. Branch cyanocobala 0 Yes [id number] 1000ug 1 mL by [facility] min 6-14 Intramuscu ity of (VITAMIN 00:00: lar route [place] B-12) 1,000 00 every 2 Medic al mcg/mL (two) Branch injection weeks. nystatin 2020-0 Yes [id number] Apply to [facility] 100,000 6-14 area(s) 2 ity of unit/gram 00:00: (two) [place] powder 00 times Medical daily. Branch cyanocobala 2020-0 Yes [id number] 1000ug 1 mL by [facility] min 6-14 Intramuscu ity of (VITAMIN 00:00: lar route [place] B-12) 1,000 00 every 2 Medic al mcg/mL (two) Branch injection weeks. nystatin 2020-0 Yes [id number] Apply to Univers 100,000 6-14 area(s) 2 ity of unit/gram 00:00: (two) [place] powder 00 times Medical daily. Branch cyanocobala 2020-0 Yes [id number] 1000ug 1 mL by [facility] min 6-14 Intramuscu ity of (VITAMIN 00:00: lar route [place] B-12) 1,000 00 every 2 Medic al mcg/mL (two) Branch injection weeks. nystatin 2020-0 Yes [id number] Apply to [facility] 100,000 6-14 area(s) 2 ity of unit/gram 00:00: (two) [place] powder 00 times Medical daily. Branch cyanocobala 2020-0 Yes [id number] 1000ug 1 mL by [facility] min 6-14 Intramuscu ity of (VITAMIN 00:00: lar route [place] B-12) 1,000 00 every 2 Medic al mcg/mL (two) Branch injection weeks. nystatin 2020-0 Yes [id number] Apply to [facility] 100,000 6-14 area(s) 2 ity of unit/gram 00:00: (two) [place] powder 00 times Medical daily. Branch cyanocobala 2020-0 Yes [id number] 1000ug 1 mL by [facility] min 6-14 Intramuscu ity of (VITAMIN 00:00: lar route [place] B-12) 1,000 00 every 2 Medic al mcg/mL (two) Branch injection weeks. nystatin 2020-0 Yes [id number] Apply to [facility] 100,000 6-14 area(s) 2 ity of unit/gram 00:00: (two) [place] powder 00 times Medical daily. Branch empaglifloz 2020-0 2022- No [id number] 10mg Take 1 [facility] in 5-18 03- tablet by ity of (JARDIANCE) 00:00: 00:00 mouth [place] 00 :00 daily Medical before Branch breakfast. KCL 20 2020-0 Yes [id number] 100meq Take 75 mL [facility] mEq/15 mL 5-04 02 by mouth 2 ity of solution 00:00: (two) [place] 00 times Medical daily. Branch KCL 20 2020-0 Yes [id number] 100meq Take 75 mL [facility] mEq/15 mL 5-04 02 by mouth 2 ity of solution 00:00: (two) [place] 00 times Medical daily. Branch KCL 20 2020-0 Yes [id number] 100meq Take 75 mL [facility] mEq/15 mL 5-04 02 by mouth 2 ity of solution 00:00: (two) [place] 00 times Medical daily. Branch KCL 20 2020-0 Yes [id number] 100meq Take 75 mL [facility] mEq/15 mL 5-04 02 by mouth 2 ity of solution 00:00: (two) [place] 00 times Medical daily. Branch KCL 20 2020-0 Yes [id number] 100meq Take 75 mL [facility] mEq/15 mL 5-04 02 by mouth 2 ity of solution 00:00: (two) [place] 00 times Medical daily. Branch KCL 20 2020-0 Yes [id number] 100meq Take 75 mL [facility] mEq/15 mL 5-04 02 by mouth 2 ity of solution 00:00: (two) [place] 00 times Medical daily. Branch KCL 20 2020-0 Yes Chronic 100meq Take 75 mL [facility] mEq/15 mL 5-04 heart by mouth 2 ity of solution 00:00: failure (two) [place] 00 with times Medical preserved daily. Branch ejection fraction KCL 20 2020-0 Yes Chronic 100meq Take 75 mL [facility] mEq/15 mL 5-04 heart by mouth 2 ity of solution 00:00: failure (two) [place] 00 with times Medical preserved daily. Branch ejection fraction KCL 20 2020-0 Yes Chronic 100meq Take 75 mL [facility] mEq/15 mL 5-04 heart by mouth 2 ity of solution 00:00: failure (two) [place] 00 with times Medical preserved daily. Branch ejection fraction diltiazem 2020-0 Yes [id number] 120mg Take 1 [facility] XR 120 mg 4-30 capsule by ity of 24 hr 00:00: mouth [place] capsule 00 daily. Medical Branch diltiazem 2021-0 Yes [id number] 120mg Take 1 [facility] XR 120 mg 4-30 capsule by ity of 24 hr 00:00: mouth [place] capsule 00 daily. Medical Branch diltiazem 0 Yes [id number] 120mg Take 1 [facility] XR 120 mg 4-30 capsule by ity of 24 hr 00:00: mouth [place] capsule 00 daily. Medical Branch diltiazem 0 Yes [id number] 120mg Take 1 [facility] XR 120 mg 4-30 capsule by ity of 24 hr 00:00: mouth [place] capsule 00 daily. Medical Branch diltiazem 0 Yes [id number] 120mg Take 1 [facility] XR 120 mg 4-30 capsule by ity of 24 hr 00:00: mouth [place] capsule 00 daily. Medical Branch diltiazem Yes [id number] 120mg Take 1 [facility] XR 120 mg 4-30 capsule by ity of 24 hr 00:00: [...] [place] tablet 00 bedtime. Medical Branch diltiazem 0 Yes Atypical 120mg Take 1 U nivers XR 120 mg 4-30 chest pain capsule by ity of 24 hr 00:00: mouth [place] capsule 00 daily. Medical Branch atorvastati 0 Yes 40mg Take 1 Univ ers n (LIPITOR) 4-30 tablet by ity of 40 mg 00:00: mouth at [place] tablet 00 bedtime. Medical Branch diltiazem 0 Yes Atypical 120mg Take 1 U nivers XR 120 mg 4-30 chest pain capsule by ity of 24 hr 00:00: mouth [place] capsule 00 daily. Medical Branch clonazePAM 0 Yes Panic Take 1 Univ ers 1 mg tablet 4-22 disorder pill PO in ity of 00:00: without the AM, 1 00 agoraphobia PO in the Med ical afternoon, Branch 1 pill PO in the evening. May take additional 1/2 pill as needed for acute anxiety. clonazePAM Yes Panic Take 1 Univ ers 1 mg tablet 4-22 disorder pill PO in ity of 00:00: without the AM, 1 00 agoraphobia PO in the Med ical afternoon, Branch 1 pill PO in the evening. May take additional 1/2 pill as needed for acute anxiety. clonazePAM Yes Panic Take 1 Univ ers 1 mg tablet 4-22 disorder pill PO in ity of 00:00: without the AM, 1 00 agoraphobia PO in the Med ical afternoon, Branch 1 pill PO in the evening. May take additional 1/2 pill as needed for acute anxiety. pantoprazol Yes [place] 1 tablet Univers e 40 mg EC 4-21 hernia every AM. it y of tablet 00:00: 1 tablet 00 as needed Medical in PM Branch pantoprazol Yes [place] 1 tablet Univers e 40 mg EC 4-21 hernia every AM. it y of tablet 00:00: 1 tablet [place] 00 as needed Medical in PM Branch pantoprazol Yes Hi[place] 1 tablet Univers e 40 mg EC 4-21 hernia every AM. it y of tablet 00:00: 1 tablet [place] 00 as needed Medical in PM Branch metformin Yes Type 2 500mg Take 1 [...] (VITAMIN 12 Medical B-6 ORAL) Branch methocarbam 2021-0 Yes 750mg Take 750 U nivers ol 750 mg 4-12 mg by ity of tablet 22:08: mouth 2 [place] 12 (two) Medical times Branch daily. buprenorphi [...] 4-12 mouth. ity of vitamin B6, 22:08: [place] (VITAMIN 12 Medical B-6 ORAL) Branch methocarbam 2020-0 Yes 750mg Take 750 U nivers ol 750 mg 4-12 mg by ity of tablet 22:08: mouth 2 [place] 12 (two) Medical times Preemption daily. buprenorphi 2020-[address] 8 mg Univers ne-naloxone 4-12 under the ity of (SUBOXONE) 22:08: tongue [place] 8-2 mg 12 every 12 Medical sublingual (twelve) Branc h film hours as needed for Pain (scale 7-10). Cholecalcif 2020-0 Yes Take by [facility] [place], 4-12 mouth. ity of Vitamin D3, 22:08: [place] (VITAMIN 12 Medical D3) 2,000 Branch unit tablet ZINC ORAL 2020-0 Yes Take by [employer] ers 4-12 mouth ity of 22:08: every [place] 12 other day. Medical Branch pyridoxine 2020-0 Yes Take by Uni vers HCl, 4-12 mouth. ity of vitamin B6, 22:08: [place] (VITAMIN 12 Medical B-6 ORAL) Branch methocarbam 2020-0 Yes 750mg Take 750 U nivers ol 750 mg 4-12 mg by ity of tablet 22:08: mouth 2 [place] 12 (two) Medical times Branch daily. buprenorphi [...] [place] 12 other day. Medical Branch COQ10, 0 Yes Take by Univers UBIQUINOL, 4-12 mouth. ity of ORAL 22:00: [place] 55 Medical Branch levocarniti 0 Yes Take by Un [place] ne 4-12 mouth. ity of (L-CARNITIN 22:00: [place] E ORAL) 55 Medical Branch COQ10, Yes Take by [facility] UBIQUINOL, 4-12 mouth. ity of ORAL 22:00: [place] 55 Medical Branch levocarniti Yes Take by Un [place] ne 4-12 mouth. ity of (L-CARNITIN 22:00: [place] E ORAL) 55 Medical Branch COQ10, Yes Take by [facility] UBIQUINOL, 4-12 mouth. ity of ORAL 22:00: [place] 55 Medical Branch levocarniti Yes Take by [facility] [place] ne 4-12 mouth. ity of (L-CARNITIN 22:00: [place] E ORAL) 55 Medical Branch diltiazem 2020-0 2020- No Atypical 120mg Take 1 Univers [...] as needed for acute anxiety. allopurinoL Yes [id number] 300mg Take 1 [facility] 300 mg 3-16 tablet by ity of tablet 00:00: mouth [place] 00 daily. Medical Branch allopurinoL Yes [id number] 300mg Take 1 [facility] 300 mg 3-16 tablet by ity of tablet 00:00: mouth [place] 00 daily. Medical Branch allopurinoL Yes [id number] 300mg Take 1 [facility] 300 mg 3-16 tablet by ity of tablet 00:00: mouth [place] 00 daily. Medical Branch allopurinoL Yes [id number] 300mg Take 1 [facility] 300 mg 3-16 tablet by ity of tablet 00:00: mouth [place] 00 daily. Medical Branch allopurinoL Yes [id number] 300mg Take 1 [facility] 300 mg 3-16 tablet by ity of tablet 00:00: mouth [place] 00 daily. Medical Branch allopurinoL Yes [id number] 300mg Take 1 [facility] 300 mg 3-16 tablet by ity of tablet 00:00: mouth [place] 00 daily. Medical Branch allopurinoL [...] [place] 00 daily. Medical Branch KCL 20 2020- No 80meq Take 60 mL Uni vers mEq/15 mL 3-04 05-04 by mouth 2 ity of solution 00:00: 00:00 (two) [place] 00 :00 times Medical daily. Branch ranolazine Yes Coronary 500mg Take 1 [facility] 500 mg 12 2-22 artery tablet by ity of hr tablet 00:00: disease mouth 2 [place] 00 involving (two) Medical [place] times Branch coronary daily. artery of [place] heart with angina pectoris ranolazine Yes Coronary 500mg Take 1 [facility] 500 mg 12 2-22 artery tablet by ity of hr tablet 00:00: disease mouth 2 [place] 00 involving (two) Medical [place] times Branch coronary daily. artery of [place] heart with angina pectoris ranolazine Yes Coronary 500mg Take 1 [facility] 500 mg 12 2-22 artery tablet by ity of hr tablet 00:00: disease mouth 2 [place] 00 involving (two) Medical [place] times Branch coronary daily. artery of [place] heart with angina pectoris metOLazone Yes [id number] 2.5mg Take 1 [facility] 2.5 mg 2-16 tablet by ity of tablet 00:00: mouth [place] 00 weekly. Medical Branch metOLazone Yes [id number] 2.5mg Take 1 [facility] 2.5 mg 2-16 tablet by ity of tablet 00:00: mouth [place] 00 weekly. Medical Branch metOLazone Yes [id number] 2.5mg Take 1 [facility] 2.5 mg 2-16 tablet by ity of tablet 00:00: mouth [place] 00 weekly. Medical Branch metOLazone Yes [id number] 2.5mg Take 1 [facility] 2.5 mg 2-16 tablet by ity of tablet 00:00: mouth [place] 00 weekly. Medical Branch metOLazone Yes [id number] 2.5mg Take 1 [facility] 2.5 mg 2-16 tablet by ity of tablet 00:00: mouth [place] 00 weekly. Medical Branch metOLazone Yes [id number] 2.5mg Take 1 [facility] 2.5 mg 2-16 tablet by ity of tablet 00:00: mouth [place] 00 weekly. [...] mouth [place] 00 weekly. Medical Branch diltiazem 2020- Atrial 90mg Take 1 Uni vers 90 mg [id number] fibrillatio tablet by i ty of tablet 00:00: 00:00 n, mouth [place] 00 :00 unspecified daily. Medica l type Branch rivaroxaban Yes pulmonary 20mg Take 1 [facility] (XARELTO) 107 thromboembo tablet by ity of 20 mg 00:00: lism mouth [place] tablet 00 daily. Medical Indication Branch s: a clot in the lung rivaroxaban Yes pulmonary 20mg Take 1 [facility] (XARELTO) 1-07 thromboembo tablet by ity of 20 mg 00:00: lism mouth [place] tablet 00 daily. Medical Indication Branch s: a clot in the lung rivaroxaban Yes pulmonary 20mg Take 1 [facility] (XARELTO) 07 thromboembo tablet by ity of 20 mg [...] Type 2 1.5mg inject 1.5 Univers (TRULICITY) 05 diabetes mg under ity of 1.5 mg/0.5 [...] Type 2 36U inject Univer s Glargine -05 diabetes 36-40 ity of (LANTUS 00:00: mellitus [...] Type 2 36U inject Univer s Glargine -05 diabetes 36-40 ity of (LANTUS 00:00: mellitus [...] Branch complicatio n Insulin Yes USE [facility] [place], 06-26 DIRECTED ity of Disposable, 00:00: 1X EVERY [place] (YANNI PEN DAY. Medical NEEDLE) 32 DX:E11.59 Bran ch gauge x 5/32" Ndle Insulin Yes USE [facility] [place], - DIRECTED ity of Disposable, 00:00: 1X EVERY [place] (YANNI PEN DAY. Medical NEEDLE) 32 DX:E11.59 Bran ch gauge x 5/32" Ndle Insulin Yes USE [facility] [place], - DIRECTED ity of Disposable, 00:00: 1X EVERY [...] unspecified hours. For vomiting nausea. type proMETHazin 2019-06- No [id number] 25mg Take 1 Univers e 25 mg 2-20 02-16 tablet by ity of tablet 00:00: 00:00 mouth [place] 00 :00 every 6 Medical (six) Branch hours. For nausea. bumetanide 2019-06 Yes Chronic 3mg Take 1.5 Univers 2 mg tablet 2-11 diastolic tablets by ity of 00:00: heart mouth 2 [place] 00 failure (two) Medical times Branch daily. bumetanide 2019-06 Yes Chronic 3mg Take 1.5 [facility] 2 mg tablet 2-11 diastolic tablets by ity of 00:00: heart mouth 2 [place] 00 failure (two) Medical times Branch daily. bumetanide 2019-06 Yes Chronic 3mg Take 1.5 [facility] 2 mg tablet 2-11 diastolic tablets by ity of 00:00: heart mouth 2 [place] 00 failure (two) Medical times Branch daily. metformin 2019-06- No Type 2 500mg Take 1 [facility] [place] ER 500 mg 0-19 04-19 diabetes tablet by ity of 24 hr 00:00: 00:00 mellitus mouth [place] tablet 00 :00 with daily with Medical cardiac breakfast. Branch complicatio n aspirin 81 2019-0 Yes Intermediat 81mg Take 1 [facility] mg chewable 8-18 e coronary tablet by ity of tablet 00:00: syndrome mouth [place] 00 daily. Medical Branch aspirin 81 2019-0 Yes Intermediat 81mg Take 1 [facility] mg chewable 8-18 e coronary tablet by ity of tablet 00:00: syndrome mouth [place] 00 daily. Medical Branch aspirin 81 2019-0 Yes Intermediat 81mg Take 1 [facility] mg chewable 8-18 e coronary tablet by ity of tablet 00:00: syndrome mouth 00 daily. Medical Branch aMILoride 5 2020-0 Yes 10mg Take 2 [facility] ers mg tablet 6-09 tablets by ity of 00:00: mouth [place] (two) Medical times Branch daily. aMILoride 5 2020-0 Yes 10mg Take 2 [facility] ers mg tablet 6-09 tablets by ity of 00:00: mouth [place] (two) Medical times Branch daily. aMILoride 5 2020-0 Yes 10mg Take 2 [facility] ers mg tablet 6-09 tablets by ity of 00:00: mouth [place] (two) Medical times Branch daily. aMILoride 5 2020-0 Yes 10mg Take 2 [facility] ers mg tablet 6-09 tablets by ity of 00:00: mouth [place] (two) Medical times Branch daily. aMILoride 5 2020-0 Yes 10mg Take 2 [facility] ers mg tablet 6-09 tablets by ity of 00:00: mouth [place] (two) Medical times Branch daily. aMILoride 5 2020-0 Yes 10mg Take 2 [facility] ers mg tablet 6-09 tablets by ity of 00:00: mouth [place] (two) Medical times Branch daily. aMILoride 5 2020-0 Yes 10mg Take 2 [facility] ers mg tablet 6-09 tablets by ity of 00:00: mouth [place] (two) Medical times Branch daily. aMILoride 5 2020-0 Yes 10mg Take 2 [facility] ers mg tablet 6-09 tablets by ity of 00:00: mouth [place] (two) Medical times Branch daily. aMILoride 5 2020-0 Yes 10mg Take 2 Univ ers mg tablet 6-09 tablets by ity of 00:00: mouth [place] (two) Medical times Branch daily. atorvastati 2020- [...] Yes .4mg Place 1 Uni vers in 07-18 tablet ity of (NITROSTAT) 00:00: under the [place] 0.4 mg 00 tongue Medical sublingual every 5 Branc h tablet (five) minutes as needed for Chest pain. nitroglycer 2018-[address] 1 [facility] vers in 07-18 tablet ity of (NITROSTAT) 00:00: under the [place] 0.4 mg 00 tongue Medical sublingual every 5 Branc h tablet (five) minutes as needed for Chest pain. nitroglycer 2018-[address] 1 [facility] vers in 07-18 tablet ity of (NITROSTAT) 00:00: under the [place] 0.4 mg 00 tongue Medical sublingual every 5 Branc h tablet (five) minutes as needed for Chest pain. nitroglycer 2018-[address] 1 [facility] vers in 07-18 tablet ity of (NITROSTAT) 00:00: under the [place] 0.4 mg 00 tongue Medical sublingual every 5 Branc h tablet (five) minutes as needed for Chest pain. nitroglycer 2018-[address] 1 [facility] vers in 07-18 tablet ity of (NITROSTAT) 00:00: under the [place] 0.4 mg 00 tongue Medical sublingual every 5 Branc h tablet (five) minutes as needed for Chest pain. nitroglycer 2018-[address] 1 [facility] vers in 07-18 tablet ity of (NITROSTAT) 00:00: under the [place] 0.4 mg 00 tongue Medical sublingual every 5 Branc h tablet (five) minutes as needed for Chest pain. nitroglycer 2018-[address] 1 [facility] vers in 07-18 tablet ity of (NITROSTAT) 00:00: under the [place] 0.4 mg 00 tongue Medical sublingual every 5 Branc h tablet (five) minutes as needed for Chest pain. allopurinol No Uric acid 300mg Take 1 [facility] 300 mg 9-03 stone in tablet by ity of tablet 00:00: urine mouth [place] 00 daily. Medical Branch polyethylen Yes [id number] 17g Take 17 g [facility] e glycol 8-06 by mouth ity of (MIRALAX) 00:00: daily. [place] 17 00 Medical gram/dose Branch powder polyethylen 2019-0 Yes [id number] 17g Take 17 g [facility] e glycol 8-06 by mouth ity of (MIRALAX) 00:00: daily. [place] Medical gram/dose Branch powder polyethylen 2019-0 Yes [id number] 17g Take 17 g [facility] e glycol 8-06 by mouth ity of (MIRALAX) 00:00: daily. [place] Medical gram/dose Branch powder polyethylen 2019-0 Yes [id number] 17g Take 17 g [facility] e glycol 8-06 by mouth ity of (MIRALAX) 00:00: daily. [place] Medical gram/dose Branch powder polyethylen 2019-0 Yes [id number] 17g Take 17 g [facility] e glycol 8-06 by mouth ity of (MIRALAX) 00:00: daily. [place] Medical gram/dose Branch powder polyethylen 2018-0 Yes [id number] 17g Take 17 g [facility] e glycol 8-06 by mouth ity of (MIRALAX) 00:00: daily. [place] Medical gram/dose Branch powder polyethylen 2018-0 Yes Constipatio 17g Take 17 g [facility] e glycol 8-06 n, by mouth ity of (MIRALAX) 00:00: unspecified daily. [place] constipatio Medical gram/dose n type Branch powder polyethylen 2018-0 Yes Constipatio 17g Take 17 g [facility] e glycol 8-06 n, by mouth ity of (MIRALAX) 00:00: unspecified daily. [place] constipatio Medical gram/dose n type Branch powder polyethylen 2018-0 Yes Constipatio 17g Take 17 g [facility] e glycol 8-06 n, by mouth ity of (MIRALAX) 00:00: unspecified daily. [place] constipatio Medical gram/dose n type Branch powder ferrous 2019-0 Yes [id number] 325mg Take 1 [facility] [place] sulfate 5-17 tablet by ity of (IRON) 325 00:00: mouth [place] mg (65 mg 00 (three) Medical iron) times Branch tablet daily with meals. ferrous 2019-0 Yes [id number] 325mg Take 1 [facility] [place] sulfate 5-17 tablet by ity of (IRON) 325 00:00: mouth [place] mg (65 mg 00 (three) Medical iron) times Branch tablet daily with meals. ferrous 2019- Yes [id number] 325mg Take 1 [facility] [place] sulfate 5-17 tablet by ity of (IRON) 325 00:00: mouth [place] mg (65 mg 00 (three) Medical iron) times Branch tablet daily with meals. ferrous 2018- Yes [id number] 325mg Take 1 Un [place] sulfate 5-17 tablet by ity of (IRON) 325 00:00: mouth [place] mg (65 mg 00 (three) Medical iron) times Branch tablet daily with meals. ferrous 2018- Yes [id number] 325mg Take 1 [facility] [place] sulfate 5-17 tablet by ity of (IRON) 325 00:00: mouth [place] mg (65 mg 00 (three) Medical iron) times Branch tablet daily with meals. ferrous 2018- Yes [id number] 325mg Take 1 [facility] [place] sulfate 5-17 tablet by ity of (IRON) 325 00:00: mouth [place] mg (65 mg 00 (three) Medical iron) times Branch tablet daily with meals. 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 ferrous 2018- Yes Iron 325mg Take 1 [facility] sulfate [...] daily with meals. foLIC acid 2017-06 Yes [id number] 1mg Take 1 U nivers 1 mg tablet 2-05 tablet by ity of 00:00: mouth [place] 00 daily. Medical Branch foLIC acid 2017-06 Yes [id number] 1mg Take 1 U nivers 1 mg tablet 2-05 tablet by ity of 00:00: mouth [place] 00 daily. Medical Branch foLIC acid 2017-06 Yes [id number] 1mg Take 1 U nivers 1 mg tablet 2-05 tablet by ity of 00:00: mouth [place] 00 daily. [facility] Branch foLIC acid 2017-06 Yes [id number] 1mg Take 1 U nivers 1 mg tablet 2-05 tablet by ity of 00:00: mouth [place] 00 daily. [facility] foLIC acid 2017-06 Yes [id number] 1mg Take 1 U nivers 1 mg tablet 2-05 tablet by ity of 00:00: mouth [place] 00 daily. [facility] foLIC acid 2017-06 Yes [id number] 1mg Take 1 U nivers 1 mg tablet 2-05 tablet by ity of 00:00: mouth [place] 00 daily. [facility] Branch foLIC acid 2017-06 Yes High plasma 1mg Take 1 [facility] 1 mg tablet 2-05 homocystine tablet by ity of 00:00: mouth [place] 00 daily. [facility] foLIC acid 2017-06 Yes High plasma 1mg Take 1 [facility] 1 mg tablet 2-05 homocystine tablet by ity of 00:00: mouth [place] 00 daily. [facility] Branch foLIC acid 2017-06 Yes High plasma 1mg Take 1 [facility] 1 mg tablet 2-05 homocystine tablet by ity of 00:00: mouth [place] 00 daily. [facility] Branch magnesium 2017-06 Yes [id number] 1{tbl} Take 1 [facility] oxide 400 1-03 tablet by ity o f mg 00:00: mouth [place] magnesium 00 daily. Medical Tab Branch magnesium 2017-06 Yes [id number] 1{tbl} Take 1 [facility] oxide 400 1-03 tablet by ity o f mg 00:00: mouth [place] magnesium 00 daily. Medical Tab Branch magnesium 2017-06 Yes [id number] 1{tbl} Take 1 [facility] oxide 400 1-03 tablet by ity o f mg 00:00: mouth [place] magnesium 00 daily. Medical Tab Branch magnesium 2017-06 Yes [id number] 1{tbl} Take 1 [facility] oxide 400 1-03 tablet by ity o f mg 00:00: mouth [place] magnesium 00 daily. [facility] Tab Branch magnesium 2017-06 Yes [id number] 1{tbl} Take 1 [facility] oxide 400 1-03 tablet by ity o f mg 00:00: mouth [place] magnesium 00 daily. [facility] Tab Branch magnesium 2017-06 Yes [id number] 1{tbl} Take 1 [facility] oxide 400 1-03 tablet by ity o f mg 00:00: mouth [place] magnesium 00 daily. Medical Tab [...] [place] magnesium 00 daily. Medical Tab Branch [place]opurinol [place] [id number] 300mg QD Take 300 [facility] (ZYLOPRIM) 8-[address] 300 MG 09:01: mouth [facility]osp[facility] tablet 19 daily. l atorvastati Yes [id number] 40mg QD Take 40 mg [facility] n (LIPITOR) 8-[address] 40 MG 09:01: nightly. Hospita tablet 19 l clonAZEPAM Yes Take by Meth yulia (KlonoPIN) 8-[address] 1 MG tablet 09:01: Take 1/2 Ho spita 19 tablet in l morning, 1/2 tablet at noon, and 1 tablet in the evening docusate Yes [id number] 100mg QD Take 100 [facility] sodium 8-[address] (COLACE) 09:01: mouth [facility]osp[facility] 100 MG 19 daily. l capsule furosemide Yes [id number] 80mg Q.5D Take 80 mg [facility] (LASIX) 80 8-[address] mg tablet 09:01: (two) Hospita 19 times a l day. clopidogrel Yes [id number] 75mg QD Take 75 mg [facility] (PLAVIX) 75 8-[address] mg tablet 09:01: daily. Hospit a 19 l metOLazone [place] [id number] 2.5mg Q24H Take 2.5 M [facility] (ZAROXOLYN) 8-[address] 2.5 MG 09:01: mouth [facility]osp[facility] tablet 19 daily as l needed (for weight gain greater than 5 poounds). metoprolol Yes [id number] 12.5mg Q24H Take 12.5 [facility] tartrate 8-[address] (LOPRESSOR) 09:01: mouth Hospi ta 25 mg 19 daily as l tablet needed (if pulse greater than 110). nitroglycer Yes [id number] 1{spray Place 1 [facility] in 02-11 } spray st (NITROLINGU 09:01: under the H ospita AL) 400 19 tongue l mcg/spray every 5 spray (five) minutes as needed for chest pain. insulin Yes [id number] 10U Q.[id number] Inject 10 [facility] ASPART 8-[id number] (NovoLOG) 09:01: 3D under the Hos janie 100 unit/mL 19 skin 3 l insulin pen (three) times a day before meals. pantoprazol Yes [id number] 40mg QD Take 40 mg [facility] e 8-[address] (PROTONIX) 09:01: daily. Hospi ta 40 MG EC 19 l tablet insulin Yes [id number] 20U QD Inject 20 Meth yulia GLARGINE 8-[address] (LANTUS 09:01: under the Hospi ta SOLOSTAR) 19 skin l 100 unit/mL nightly. injection (pen) potassium Yes [id number] 20meq Q.[id number] Take 20 [facility] chloride 8-[id number] (K-DUR,KLOR 09:01: 3D mouth 3 Hos janie -CON) 10 19 (three) l MEQ CR times a tablet day. Three tabs QID methocarbam Yes [id number] 750mg Q.5D Take 750 [facility] ol 8-[address] (ROBAXIN) 09:01: mouth 2 Hospi ta 750 MG 19 (two) l tablet times a day. ranolazine Yes [id number] 1000mg Q.5D Take 1,000 [facility] (RANEXA) 8-[address] 1,000 mg 12 09:01: mouth 2 Hos janie hr tablet 19 (two) l times a day. warfarin Yes [id number] 10mg Take 10 mg Me thodi (COUMADIN) 8-[address] 10 MG 09:01: On Hospita tablet 19 Friday, l , Friday, Friday warfarin Yes [id number] 7.5mg Take 7.5 Met hodi (COUMADIN) 8-[address] 7.5 MG 09:01: mouth. On Hospit a tablet 19 Friday, l Friday, Friday cyanocobala Yes [id number] 1000ug Q7D Inject M ethodi min 1,000 8-22 1,[address] mcg/mL 09:01: into the Hospita injection 19 shoulder, l thigh, or buttocks once a week. For 3 months, and then will reassess B12 [place]af[place] [id number] 100mg QD Take 100 [facility] ine 8-[address] (PRISTIQ) 09:01: mouth [facility]ospita 100 MG 24 19 daily. l hr tablet ferrous Yes [id number] 325mg Q.[id number] Take 325 [facility] sulfate 325 8-22 [id number] mg by s t (65 FE) MG 09:01: 3D mouth 3 [facility] tablet 19 (three) l times a day with meals. AMILoride Yes [id number] 5mg Q.5D Take 5 mg Me thodi (MIDAMOR) 5 8-[address] MG tablet 09:01: (two) Hospita 19 times a l day. folic acid Yes [id number] 1mg QD Take 1 mg M ethodi (FOLVITE) 1 8-[address] MG tablet 09:01: daily. Hospit a 19 l docusate Yes 100mg Take 1 Univer s 100 mg 1-12 capsule by ity of capsule 00:00: mouth 2 (two) Medical times Branch daily as needed for Constipati on. docusate 0 Yes 100mg Take 1 Univer s 100 mg 1-12 capsule by ity of capsule 00:00: mouth 2 (two) Medical times Branch daily as needed for Constipati on. docusate 2016-0 Yes 100mg Take 1 Univer s 100 mg 1-12 capsule by ity of capsule 00:00: mouth 2 [place] 00 (two) Medical times Branch daily as needed for Constipati on. docusate 2016-0 Yes 100mg Take 1 Univer s 100 mg 1-12 capsule by ity of capsule 00:00: mouth 2 [place] (two) Medical times Branch daily as needed for Constipati on. docusate 2016-0 Yes 100mg Take 1 Univer s 100 mg 1-12 capsule by ity of capsule 00:00: mouth 2 (two) Medical times Branch daily as needed for Constipati on. docusate 2017-0 Yes 100mg Take 1 Univer s 100 mg 1-12 capsule by ity of capsule 00:00: mouth 2 (two) Medical times Branch daily as needed for Constipati on. docusate 0 Yes 100mg Take 1 Univer s 100 mg 1-12 capsule by ity of capsule 00:00: mouth 2 (two) Medical times Branch daily as needed for Constipati on. docusate 2016-0 Yes 100mg Take 1 Univer s 100 mg 1-12 capsule by ity of capsule 00:00: mouth 2 (two) Medical times Branch daily as needed for Constipati on. docusate 2016-0 Yes 100mg Take 1 Univer s 100 mg 1-12 capsule by ity of capsule 00:00: mouth 2 (two) Medical times Branch daily as needed for Constipati on. Aspirin 2015-06 No Notes: Do Memor ia 1-25 not crush l 23:16: or chew. [place] 00 (Same As: Ecotrin) Saline 2015-06 No Notes: Memoria Flush 0.9% 1-25 (Same as: l 21:48: BD Posiflush) Plavix 2015-06 No Notes: Memoria 1-15 (Same As: l 15:00: Plavix) [place] metoprolol 2015-06 Yes 25 mg = 1 Me moria 25 mg oral 1-15 tab, PO, l tablet, 00:17: Daily, # Fly n extended 00 30 tab, 0 release Refill(s) Protonix 2015-06 No Notes: Memoria 1-14 Tablet l 22:30: should not be chewed or crushed. (Same as: Protonix) Lisinopril 2015-06 No Notes: Memor ia 1-14 (Same as: l 15:00: Prinivil, Freddy Zestril) Aspirin 325 2015-06 No Notes: Bc jae MG Oral 1-14 Take with l Tablet 15:00: food. [place] 00 atorvastati 2015-06 Yes 40 mg = 1 M emoria n 40 mg 1-14 tab, PO, l oral tablet 09:08: Bedtime, # [place] 00 90 tab, 1 Refill(s) Alprazolam 2015-06 No Notes: Memor ia 1 MG Oral 1-14 With food l Tablet 04:49: or milk [place] [Xanax] 00 (Same as: Xanax) Lipitor 2015-06 No Notes: Memoria 1-14 (Same as: l 03:00: Lipitor) Clindamycin 2015-06 No Notes: Bc jae -14 (Same As: l 03:00: Cleocin) Saline 2015-06 No Notes: Memoria Flush 0.9% -14 preservati l 03:00: ve free. [place] 00 Insulin, 2015-06 No Notes: Memoria Aspart, 1-14 Roll in l Human 02:27: palms of hands gently; Do not shake vigorously . (Same as: NovoLOG) "single patient use only" WASTE: F/P - Black; E - Municipal Trash Bin Stable for 28 days at room temperatur e. Expires in days from ____Date Glucagon 2015-06 No 1 mg, Memoria 14 Route: IM, l 02:27: Drug form: [place] 00 PDR/INJ, PRN, Dosing Weight 127.273, kg, PRN Blood Glucose Results, Start date: 05/05/16 20:27:00 [employer], Duration: 30 day, Stop date: 06/04/16 20:26:00 [employer] Dextrose 2015-06 No 12.5 gm, Memor ia 50% Syringe 14 25 mL, l 02:27: Route: [place] 00 IVP, Drug Form: INJ, Dosing Weight 127.273, kg, PRN, PRN Blood Glucose Results, Start date: 05/05/16 20:27:00 [employer], Duration: 30 day, Stop date: 06/04/16 20:26:00 [employer] Morphine 2015-06 No Notes: Memoria 1-14 (Same l 02:00: as:MORPhin e Sulfate) Plavix 2015-06 No Notes: Memoria 1-14 (Same As: l 01:58: Plavix) [place] 00 Saline 2015-06 No Notes: Memoria Flush 0.9% 1-14 (Same as: l 01:55: BD [place] 00 Posiflush) Albuterol 2015-06 No Notes: Memori a 0.833 MG/ML 07-06 (Same as: l / 01:55: Duoneb) [place] Ipratropium 00 [place] 0.167 MG/ML Inhalant Solution Nystatin 2015-06 No [...] Volume: 500 mL, Start date: 05/05/16 19:43:00 [employer], Duration: 30 day, Stop date: 06/04/16 19:42:00 [employer] Heparin 60 2015-06 No Route: Memor ia unit/kg -14 IVP, PRN, l Bolus 01:43: 5,800 Freddy (Heparin 00 unit, 5.8 Dosing mL, Drug Weight) form: INJ, PRN, Heparin Protocol, Start date: 05/05/16 19:43:00 [employer] Stop date: 06/04/16 19:42:00 [employer] Heparin 30 2015-06 No Route: Memor ia unit/kg -14 IVP, PRN, l Bolus 01:43: 2,900 [place] (Heparin 00 unit, 2.9 Dosing mL, Drug Weight) form: INJ, PRN, Heparin Protocol, Start date: 05/05/16 19:43:00 [employer] Stop date: 06/04/16 19:42:00 [employer] Heparin - 2015-06 No 4,000 Memoria one time 14 unit, 4 l bolus for 01:43: mL, Route: He r[place] ACS 00 IVP, Drug form: INJ, ONCE, Dosing Weight 127.273, kg, Priority: STAT, Start date: 05/05/16 19:43:00 [employer], Stop date: 05/05/16 19:43:00 [employer] Morphine 2015-06 No Notes: Memoria 14 (Same l 01:25: as:MORPhin [place] 00 e Sulfate) Nitroglycer 2015-06 No 1 inch, Mem oria in 0.02 07-05 Route: l MG/MG 23:40: TOP, [place] Topical 00 Dosing Ointment Weight 127.273, kg, ONCE, STAT, Start date: 05/05/16 17:40:00 [employer], Stop date: 05/05/16 17:40:00 [employer] Aspirin 81 2015-06 No 243 mg, Bc jae MG Chewable 07-05 Route: PO, l Tablet 23:17: Drug form: [place] nn 00 CHE[place]AB, ONCE, Dosing Weight 127.273, kg, Priority: STAT, Start date: 05/05/16 17:17:00 [employer], Stop date: 05/05/16 17:17:00 [employer] Morphine 2015-06 No 4 mg, Memoria 07-05 Route: l 23:15: IVP, ONCE, [place] 00 Dosing Weight 127.273, kg, Priority: STAT, Start date: 05/05/16 17:15:00 [employer], Stop date: 05/05/16 17:15:00 [employer] Saline 2015-06 No Notes: Memoria Flush 0.9% 07-05 preservati l 22:55: ve free. [place] 00 Acetaminoph 2015-06 No 1 - 2 tab, Memoria en 300 MG / -04 PO, Q4H, l Codeine 01:41: PRN Pain, Ashley nn Phosphate 00 X 2 day, # 30 MG Oral 20 tab, 0 Tablet Refill(s) [Tylenol with Codeine #3] Morphine 2015-06 No Notes: Memoria - (Same l 00:51: as:MORPhin [place] 00 e Sulfate) Zofran 2015-06 No Notes: Memoria 06-25 (Same as: l 23:23: Zofran) [place] 00 MEDICATION WASTE Product Size: 4 mg Product Wasted: ___ mg Morphine 2015-06 No Notes: Memoria - (Same l 23:23: as:MORPhin [place] 00 e Sulfate) Saline 2015-06 No Notes: Memoria Flush 0.9% 06-25 (Same as: l 23:07: BD [place] 00 Posiflush) furosemide 2015-06 Yes 20mg QD Take [address] (LASIX) 20 0-11 by mouth [facility] MG tablet 09:11: daily. Medica l 14 [place] potassium 2015-06 Yes 20meq QD Take [address] [facility] [address] chloride SA 0-11 mEq by [facility] - (K-DUR,KLOR 09:11: mouth Medic al -CON) 20 14 daily . Center MEQ tablet hydrOXYzine 2015-06 Yes 25mg Take [address] [facility] (ATARAX) 25 0-11 by mouth [facility] - MG tablet 09:11: every Medical 14 night as Center needed (Sleep). furosemide 2015-06 Yes 20mg QD Take [address] (LASIX) 20 0-11 by mouth [facility] - MG tablet 09:11: daily. Medica l 14 [place] potassium 2015-06 Yes 20meq QD Take [address] chloride SA 0-11 mEq by [facility] - (K-DUR,KLOR 09:11: mouth Medic al -CON) 20 14 daily . Center MEQ tablet hydrOXYzine 2015-06 Yes 25mg Take [address] (ATARAX) 25 0-11 by mouth Luke s - MG tablet 09:11: every Medical 14 night as Center needed (Sleep). furosemide 2015-06 Yes 20mg QD Take [address] (LASIX) 20 0-11 by mouth [facility] - MG tablet 09:11: daily. Medica l 14 [place] potassium 2015-06 Yes 20meq QD Take 20 [...] CDT, Stop date: 03/05/16 7:22:00 CDT Saline 2015-0 No Notes: Memoria Flush 0.9% 03-05 (Same as: l 12:22: BD [place] 00 Posiflush) Dilaudid 2015- No Notes: Memoria 9-10 Same as: l 12:40: Dilaudid Ketorolac 2015-0 No 4 days Memor ia 9-10 l 10:25: MEDICATION WASTE Product Size: 30 mg Product Wasted: ___ mg Morphine 2015-0 No Notes: Memoria 9-10 (Same l 10:25: as:MORPhin [place] 00 e Sulfate) Ondansetron 2015-0 No Notes: Bc jae 9-10 (Same as: l 10:25: Zofran) MEDICATION WASTE Product Size: 4 mg Product Wasted: ___ mg Saline 2015- No Notes: Memoria Flush 0.9% 9-10 (Same as: l 10:25: BD [place] Posiflush) Sodium No 1,000 mL, Memori a [...] Memoria 8-28 Tablet l 12:30: should not [place] 00 be chewed or crushed. (Same as: Protonix) Lipitor No Notes: Memoria 8- (Same as: l 02:00: Lipitor) [place] 00 Morphine No Notes: Memoria 8- (Same l 16:54: as:MORPhin [place] 00 e Sulfate) Lovenox No Notes: Memoria 8- (Same as: l 15:00: Lovenox) [place] 00 Lisinopril No Notes: Memor ia 8- (Same as: l 14:55: Prinivil, [place] 00 Zestril) Imdur No Notes: Memoria 8- (Same l 14:54: as:Imdur) [place] 00 "Do Not Crush" Take on empty stomach/ full glass of water. Do not crush Plavix No Notes: Memoria 8-27 (Same As: l 14:54: Plavix) [place] 00 Aspirin 81 No Notes: Do Me moria MG Enteric 02-16 not crush l Coated 14:54: or chew. Freddy Tablet 00 (Same As: Ecotrin) Zofran ODT No Notes: Memor ia 8- (Same as: l 14:25: Zofran [place] 00 ODT) Nitroglycer No Notes: Bc jae in 0.4 MG 8-27 (Same l Sublingual 14:25: as:Nitroqu H ermann Tablet 00 ick, [Nitrostat] Nitrostat) "Do Not Crush" Sublingual tablet Alprazolam No Notes: Memor ia 1 MG Oral 8-27 With food l Tablet 14:23: or milk [place] [Xanax] 00 (Same as: Xanax) pneumococca No Notes: Bc jae l capsular 8-27 (Same as: l polysacchar 14:00: Pneumovax H ermann el type 1 00 23) vaccine / Refrigerat pneumococca e l capsular polysacchar el type 10A vaccine / pneumococca l capsular polysacchar el type 11A vaccine / pneumococca l capsular polysacchar el type 12F vaccine / pneumococca l capsular polysacchar Ondansetron No 4 mg = 1 Me [...] = 1 M emoria 75 MG Oral -27 tab, PO, l Tablet 13:07: Daily, # [place] [Plavix] 00 30 tab, 0 Refill(s) atorvastati Yes 80 mg = 1 M emoria n 80 MG 27 tab, PO, l Oral Tablet 13:07: Bedtime, # Fred[place] [Lipitor] 00 30 tab, 0 Refill(s) Ceftriaxone No 1 gm, Memor ia 02-16 Route: l 12:01: IVPB, Drug [place] 00 form: PDR/INJ, ONCE, Dosing Weight 129.545, kg, Priority: STAT, Start date: 02/17/16 7:01:00 CDT, Stop date: 02/17/16 7:01:00 CDT Dilaudid 2016-0 No 0.5 mg, Memori a 02-16 Route: l 11:28: IVP, ONCE, Dosing Weight 129.545, kg, Priority: STAT, Start date: 02/17/16 6:28:00 CDT, Stop date: 02/17/16 6:28:00 CDT Zofran 2016-0 No 4 mg, Memoria 02-16 Route: l 10:32: IVP, Drug form: INJ, ONCE, Dosing Weight 129.545, kg, Priority: STAT, Start date: 02/17/16 5:32:00 CDT, Stop date: 02/17/16 5:32:00 CDT Dilaudid 2016-0 No 0.5 mg, Memori a 02-16 Route: l 10:32: IVP, ONCE, Dosing Weight 129.545, kg, Priority: STAT, Start date: 02/17/16 5:32:00 CDT, Stop date: 02/17/16 5:32:00 CDT Saline 2016-0 No Notes: Memoria Flush 0.9% 02-16 (Same as: l 10:19: BD Posiflush) pantoprazol 2016-0 Yes 40mg QD Take [address] [facility] 6-20 tablet (40 [facility] - (PROTONIX) 00:00: mg total) Me dical 40 MG 00 by mouth Center tablet daily. pantoprazol 2016-0 Yes 40mg QD Take [address] [facility] 6-20 tablet (40 [facility] - (PROTONIX) 00:00: mg total) Me dical 40 MG 00 by mouth Center tablet daily. pantoprazol 2016-0 Yes 40mg QD Take [address] [facility] [facility] 6-20 tablet (40 [facility] - (PROTONIX) 00:00: mg total) Me dical 40 MG 00 by mouth Center tablet daily. Immunizations Ordered Filled Immunization Date Status Comments [facility] e Immunization Name Name Td 2017-06-26 Completed [facility] 00:00:00 [facility] Td 2017-06-26 Completed [facility] 00:00:00 [facility] Td 2017-06-26 Completed [facility] 00:00:00 [facility] Td 2017-06-26 Completed [facility] 00:00:00 [facility] Td 2017-06-26 Completed [facility] 00:00:00 [facility] Td 2017-06-26 Completed [facility] 00:00:00 [place] [facility] Td 2017-06-26 Completed [facility] 00:00:00 [place] [facility] Td 2017-06-26 Completed [facility] 00:00:00 [place] [facility] Td 2017-06-26 Completed [facility] 00:00:00 [place] [facility] Td 2015-03-19 Completed [facility] 00:00:00 [place] [facility] Td 2015-03-19 Completed [facility] 00:00:00 [place] [facility] Td 2015-03-19 Completed [facility] 00:00:00 [place] [facility] Td 2015-03-19 Completed [facility] 00:00:00 [place] [facility] Td 2015-03-19 Completed [facility] 00:00:00 [place] [facility] Td 2015-03-19 Completed [facility] 00:00:00 [place] [facility] Td 2015-03-19 Completed [facility] 00:00:00 [place] [facility] Branch Td 2015-03-19 Completed [facility] 00:00:00 [place] [facility] Td 2015-03-19 Completed [facility] of 00:00:00 [facility] Vital Signs Vital Name Observation Time Observation Value Comments Source Systolic blood 2021-09-09 21:29:00 124 mm[Hg] Univer sity of pressure [facility] Diastolic blood 2021-09-09 21:29:00 68 mm[Hg] Unive rsity of pressure [facility] Heart rate 2021-09-09 21:29:00 72 /min [facility] Body temperature 2021-09-09 21:29:00 36.5 Felipa [facility] Respiratory rate 2021-09-09 21:29:00 18 /min [facility] Oxygen saturation in 2021-09-09 21:29:00 96 /min [facility] Arterial blood by [facility] Pulse oximetry Branch Body height 2021-09-09 15:27:00 177.8 cm [facility] Body weight 2021-09-09 15:27:00 122.925 kg [facility] BMI 2021-09-09 15:27:00 38.88 kg/m2 [facility] Systolic blood 2021-08-28 15:43:00 121 mm[Hg] Univer sity of pressure [facility] Diastolic blood 2021-08-28 15:43:00 78 mm[Hg] Unive rsity of pressure [facility] Heart rate 2021-08-28 15:43:00 76 /min [facility] [place] [facility] Body height 2021-08-28 15:43:00 177.8 cm [facility] [place] [facility] Body weight 2021-08-28 15:43:00 124.286 kg [facility] [place] [facility] BMI 2021-08-28 15:43:00 39.31 kg/m2 [facility] [place] [facility] Oxygen saturation in 2021-08-28 15:43:00 96 /min [facility] Arterial blood by [place] [employer] Pulse oximetry Branch Respiratory rate 2021-08-23 20:41:00 18 /min Univ ersity of [place] [facility] Body temperature 2021-08-16 22:11:00 36.44 Felipa [facility] [place] [facility] Systolic blood 2020-10-24 18:40:00 133 mm[Hg] Univer sity of pressure [facility] Diastolic blood 2020-10-24 18:40:00 79 mm[Hg] Unive rsity of pressure [facility] Heart rate 2020-10-24 18:40:00 80 /min [facility] [place] [facility] Body temperature 2020-10-24 18:40:00 36.44 Felipa [facility] [place] [facility] Respiratory rate 2020-10-24 18:40:00 18 /min Univ ers[facility] of [place] [facility] Body height 2020-10-24 18:40:00 177.8 cm [facility] [place] [facility] Body weight 2020-10-24 18:40:00 130.908 kg [facility] [place] [facility] BMI 2020-10-24 18:40:00 41.41 kg/m2 [facility] [place] [facility] Oxygen saturation in 2020-10-24 18:40:00 96 /min [facility] Arterial blood by [place] [facility] Pulse oximetry Branch Respitory Rate 2016-05-17 23:59:00 Zane Minaya Temperature Oral (F) 2016-05-17 23:59:00 98.1 F Kentrell Hayes Heart Rate 2016-05-17 23:59:00 Kentrell Hayes Systolic (mm Hg) 2016-05-17 23:59:00 Bc rial [place] Diastolic (mm Hg) 2016-05-17 23:59:00 Mem orial [place] Weight 2016-05-17 21:43:00 [facility] Temperature Oral (F) 2016-05-17 21:43:00 97.6 F [facility] Respitory Rate 2016-05-17 21:43:00 Memori al [place] Heart Rate 2016-05-17 21:43:00 [facility] [place] Systolic (mm Hg) 2016-05-17 21:43:00 Bc rial [place] Diastolic (mm Hg) 2016-05-17 21:43:00 Mem orial [place] Respitory Rate 2016-05-06 21:58:00 Memori al [place] Systolic (mm Hg) 2016-05-06 21:58:00 Bc rial [place] Diastolic (mm Hg) 2016-05-06 21:58:00 Mem orial [place] Heart Rate 2016-05-06 21:58:00 [facility] [place] Temperature Oral (F) 2016-05-06 21:58:00 97.9 F [facility] Respitory Rate 2016-05-06 19:19:00 Mem[facility] [place] Temperature Oral (F) 2016-05-06 17:24:00 97.4 F [facility] Systolic (mm Hg) 2016-05-06 17:24:00 Bc rial [place] Diastolic (mm Hg) 2016-05-06 17:24:00 Mem orial [place] Respitory Rate 2016-05-06 17:24:00 Memori al [place] Heart Rate 2016-05-06 17:24:00 [facility] [place] Systolic (mm Hg) 2016-05-06 16:20:00 Bc rial [place] Diastolic (mm Hg) 2016-05-06 16:20:00 Mem orial [place] Heart Rate 2016-05-06 16:20:00 [facility] [place] Temperature Oral (F) 2016-05-06 16:20:00 97.9 F [facility] [place] Weight 2016-05-06 03:12:00 [facility] [place] BMI Calculated 2016-05-06 03:12:00 [facility] [place] Height 2016-05-06 03:12:00 177.8 cm [facility] Weight 2016-05-05 23:05:00 [facility] [place] Systolic (mm Hg) 2016-04-26 01:24:00 Bc rial [place] Diastolic (mm Hg) 2016-04-26 01:24:00 Mem orial [place] Respitory Rate 2016-04-26 01:24:00 Memori al [place] Heart Rate 2016-04-26 01:24:00 [facility] Temperature Oral (F) 2016-04-26 01:24:00 97.4 F [facility] [place] Weight 2016-04-25 23:04:00 [facility] BMI Calculated 2016-04-25 23:04:00 Mem[facility] [place] Height 2016-04-25 23:04:00 177.8 cm [facility] Respitory Rate 2016-04-25 23:04:00 [facility] [place] Temperature Oral (F) 2016-04-25 23:04:00 97.2 F [facility] Heart Rate 2016-04-25 23:04:00 [facility] Systolic (mm Hg) 2016-04-25 23:04:00 Bc rial [place] Diastolic (mm Hg) 2016-04-25 23:04:00 Mem orial [place] Temperature Oral (F) 2016-03-05 14:32:00 98.7 F [facility] Respitory Rate 2016-03-05 14:32:00 [facility] [place] Systolic (mm Hg) 2016-03-05 14:32:00 Bc rial [place] Diastolic (mm Hg) 2016-03-05 14:32:00 Mem o[facility] [place] Respitory Rate 2016-03-05 12:48:00 [facility] [place] Systolic (mm Hg) 2016-03-05 12:48:00 Bc rial [place] Diastolic (mm Hg) 2016-03-05 12:48:00 Mem orial [place] Systolic (mm Hg) 2016-03-05 12:06:00 Bc rial [place] Diastolic (mm Hg) 2016-03-05 12:06:00 Mem orial [place] Height 2016-03-05 12:06:00 177.8 cm [facility] [place] BMI Calculated 2016-03-05 12:06:00 [facility] [place] Weight 2016-03-05 12:06:00 [facility] [place] Heart Rate 2016-03-05 12:06:00 [facility] Temperature Oral (F) 2016-03-05 12:06:00 98.9 F [facility] [place] Respitory Rate 2016-03-05 12:06:00 [facility] [place] Temperature Oral (F) 2016-03-02 14:14:00 98.2 F [facility] [place] Heart Rate 2016-03-02 14:14:00 [facility] [place] Respitory Rate 2016-03-02 14:14:00 [facility] [place] Systolic (mm Hg) 2016-03-02 12:39:00 Bc rial [place] Diastolic (mm Hg) 2016-03-02 12:39:00 Mem orial [place] Heart Rate 2016-03-02 12:39:00 [facility] [place] Weight 2016-03-02 10:03:00 [facility] [place] Temperature Oral (F) 2016-03-02 10:03:00 98.0 F [facility] Respitory Rate 2016-03-02 10:03:00 Mem[facility] [place] Systolic (mm Hg) 2016-03-02 10:03:00 Bc rial [place] Diastolic (mm Hg) 2016-03-02 10:03:00 Mem o[facility] [place] Heart Rate 2016-03-02 10:03:00 [facility] [place] Systolic (mm Hg) 2016-02-20 01:05:00 Bc rial [place] Diastolic (mm Hg) 2016-02-20 01:05:00 Mem orial [place] Temperature Oral (F) 2016-02-20 01:05:00 98.0 F [facility] [place] Respitory Rate 2016-02-20 01:05:00 [facility] [place] Heart Rate 2016-02-20 01:05:00 [facility] [place] Heart Rate 2016-02-19 20:37:00 [facility] [place] Respitory Rate 2016-02-19 20:37:00 [facility] [place] Temperature Oral (F) 2016-02-19 20:37:00 97.8 F [facility] [place] Systolic (mm Hg) 2016-02-19 20:37:00 Bc rial [place] Diastolic (mm Hg) 2016-02-19 20:37:00 Mem [facility] [place] Systolic (mm Hg) 2016-02-19 17:00:00 Bc rial [place] Diastolic (mm Hg) 2016-02-19 17:00:00 Mem [facility] [place] Heart Rate 2016-02-19 17:00:00 [facility] [place] Temperature Oral (F) 2016-02-19 17:00:00 97.9 F [facility] [place] Respitory Rate 2016-02-19 17:00:00 Zane Minaya Height 2016-02-17 13:19:00 177.8 cm Kentrell Hayes BMI Calculated 2016-02-17 13:19:00 Zane Minaya Weight 2016-02-17 13:19:00 Kentrell Hayes Weight 2016-02-17 10:16:00 Kentrell Hayes BMI Calculated 2016-02-17 10:16:00 Zane Minaya Height 2016-02-17 10:16:00 177.8 cm [facility] Procedure Date / Time Performing Clinician Source Performed POTASSIUM SERUM 2021-09-09 20:56:00 Herbert Javed [facility] TROPONIN I 2021-09-09 18:58:00 [facility] PO[facility] GLUCOSE (AUTOMATED) 2021-09-09 16:47:00 [facility] TRANSTHORACIC E[facility] (TTE) 2021-09-09 14:43:00 Yifan Romero [facility] COMPLETE W/ CONTRAST Medical [facility] POCT GLUCOSE (AUTOMATED) 2021-09-09 12:41:00 [place] [facility] BASIC METABOLIC PANEL (NA, 2021-09-09 09:58:00 Yifan cotton [facility] K, CL, CO2, GLUCOSE, BUN, Medica l Branch CREATININE, CA) LIPID PANEL ([id number])(TOTAL 2021-09-09 09:58:00 Jose Martin Reece [facility] TRIGLYCERIDES, HDL) CBC WITH DIFF 2021-09-09 09:58:00 [facility] TROPONIN I 2021-09-09 06:46:00 [facility] 2021-09-09 03:52:11 Brooklyn Natarajan [facility] LIPASE 2021-09-09 01:01:00 Brooklyn Natarajan [facility] TROPONIN I 2021-09-09 01:01:00 Brooklyn Natarajan [facility] COMP. METABOLIC PANEL 2021-09-09 01:01:00 Brooklyn Natarajan [facility] ([id number]) Medical Branch CBC WITH DIFF 2021-09-09 01:01:00 Brooklyn Natarajan [facility] PROTHROMBIN TIME / INR 2021-09-09 01:01:00 Brooklyn Natarajan [facility] N-TERMINAL PRO-BNP 2021-09-09 01:01:00 Brooklyn Natarajan [facility] COVID-19 (ID NOW RAPID 2021-09-09 01:01:00 Brooklyn Natarajan [facility] TESTING) Medical Branch XR CHEST 1 VW 2021-09-09 00:24:03 Brooklyn Natarajan [facility] NOTICE OF PRIVACY 2021-09-08 23:16:26 Doctor Unassigned, [facility] PRACTICES [place] [facility] CONSENT/REFUSAL FOR 2021-09-08 23:16:04 Doctor Unassigned, [facility] DIAGNOSIS AND TREATMENT [place] [facility] POCT HEMOGLOBIN A1C TEST 2021-08-28 15:54:00 Urszula Edwards [facility] COMP. METABOLIC PANEL 2021-08-16 22:50:00 Aye noemi [facility] ([id number]) Medical Branch MAGNESIUM 2021-08-16 22:50:00 Aye [facility] PHOSPHORUS 2021-08-16 22:50:00 Aye [facility] URIC ACID 2021-08-16 22:50:00 Aye [facility] FERRITIN SERUM 2021-08-16 22:50:00 Aye [facility] CBC WITH DIFF 2021-08-16 22:50:00 Aye [facility] LACTATE DEHYDROGENASE 2021-08-16 22:50:00 Aye [facility] D-DIMER 2021-08-16 22:50:00 Aye [facility] IRON PANEL 2021-08-16 22:50:00 Robbin Griffiths [facility] COVID-19 (MOLECULAR 2021-07-12 16:28[facility] LAB ONLY COVID 2021-07-12 16:28:00 [facility] 2 VW 2021-06-29 00:06:00 Mary Maddox [facility] acute [facility] COVID-19 (MOLECULAR 2021-06-28 23:24:[facility] N[facility]LE[facility]) LAB ONLY COVID 2021-06-28 23:24:[address] [facility] ASSIGNMENT OF BENEFITS 2020-10-26 20:34:41 Doctor Unassigned, [facility] [place] [facility] POCT GLUCOSE (AUTOMATED) 2020-09-29 16:48:00 Thaddeus Interiano [facility] POCT GLUCOSE (AUTOMATED) 2020-09-29 12:57:00 Thaddeus Interiano [facility] CBC WITH DIFF 2020-09-29 10:05:00 Thaddeus Interiano [facility] acute hospital BASIC METABOLIC PANEL (NA, 2020-09-29 10:05:00 Thaddeus Interiano [facility] K, CL, CO2, GLUCOSE, BUN, Medica l Branch CREATININE, CA) TROPONIN I 2020-09-29 07:13:00 Blue Strange [facility] POCT GLUCOSE (AUTOMATED) 2020-09-29 01:30:00 Thaddeus Interiano [facility] TROPONIN I 2020-09-29 01:26:00 Thaddeus Interiano [facility] acute hospital TROPONIN I 2020-09-28 21:36:00 Thaddeus Interiano [facility] acute hospital POCT GLUCOSE (AUTOMATED) 2020-09-28 21:11:00 Thaddeus Interiano [facility] XR CHEST 1 VW 2020-09-28 19:02:30 Nick Palomino [facility] acute hospital CBC WITH DIFF 2020-09-28 18:33:00 Josse Palominonell [facility] acute hospital BASIC METABOLIC PANEL (NA, 2020-09-28 18:33:00 Nick Palomino [facility] K, CL, CO2, GLUCOSE, BUN, Medica l Branch CREATININE, CA) HEPATIC FUNCTION PANEL 2020-09-28 18:33:00 Nick Palomino [facility] ([id number]) (ALB,T.PRO,BILI Medical Branch T,BU/BC,ALT,AST,ALK PHOS) TROPONIN I 2020-09-28 18:33:00 Candelario [facility] LIPASE 2020-09-28 18:33:00 Candelario [facility] ACTIVATED PARTIAL THRMPLAS 2020-09-28 18:33:00 Nick Palomino [facility] CAROLINA [facility] N-TERMINAL PRO-BNP 2020-09-28 18:33:00 Nick Palomino [facility] Medical Preemption COVID-19 (ID NOW RAPID 2020-09-28 18:33:00 Candelario Nick [facility] TESTING) Medical Branch LAB ONLY COVID 2020-09-28 18:33:00 Candelario Nick [facility] INTERPRETATION [facility] GLYCOSYLATED HEMOGLOBIN 2020-09-28 18:33:00 Thaddeus Interiano [facility] (A1C) Medical Branch EKG-12 LEAD 2020-09-28 18:21:27 Nick Palomino [facility] acute hospital CONSENT/REFUSAL FOR 2020-09-28 17:59:47 Doctor Unasslorie, [facility] DIAGNOSIS AND TREATMENT [place] HOSPITAL ADMISSION 2020-09-28 05:01:00 Doctor Unabakari, [facility] Name Medical Preemption BASIC METABOLIC PANEL (NA, 2020-09-07 16:47:00 Omole, Nima U [facility] K, CL, CO2, GLUCOSE, BUN, [place] Medica l Branch CREATININE, CA) BASIC METABOLIC PANEL (NA, 2020-08-31 14:53:00 Vonda Kaur [facility] K, CL, CO2, GLUCOSE, BUN, Medica l Branch CREATININE, CA) CONSENT/REFUSAL FOR 2020-08-31 14:44:24 Doctor Unassigned, [facility] DIAGNOSIS AND TREATMENT [place] [facility] ASSIGNMENT OF BENEFITS 2020-08-31 14:44:06 Doctor Unassigned, [facility] [place] [facility] BASIC METABOLIC PANEL (NA, 2020-08-26 23:46:00 Pura Elam [facility] K, CL, CO2, GLUCOSE, BUN, Medica l Branch CREATININE, CA) POCT GLUCOSE (AUTOMATED) 2020-08-26 21:57:00 Everettiongamal [facility] POCT GLUCOSE (AUTOMATED) 2020-08-26 17:39:00 Ediongamal [facility] POCT GLUCOSE (AUTOMATED) 2020-08-26 13:33:00 Nick [facility] CBC WITH DIFF 2020-08-26 09:55:00 Everettiongamal [facility] BASIC METABOLIC PANEL (NA, 2020-08-26 09:55:00 [facility] K, CL, CO2, GLUCOSE, BUN, Medica l Branch CREATININE, CA) N-TERMINAL PRO-BNP 2020-08-26 09:55:00 [facility] POCT GLUCOSE (AUTOMATED) 2020-08-26 04:16:00 Nick [facility] TROPONIN I 2020-08-26 03:08:00 Nick [facility] PROCALCITONIN 2020-08-26 03:08:00 Herbert Javed [facility] POCT GLUCOSE (AUTOMATED) 2020-08-26 01:25:00 [facility] US ABDOMEN LIMITED 2020-08-26 00:38:40 Herbert Javed [facility] POCT GLUCOSE (AUTOMATED) 2020-08-25 23:06:00 Nick [facility] ECHO ROUTINE W/DOPPLER 2020-08-25 21:23:50 Junito Quezada [facility] TROPONIN I 2020-08-25 17:35:00 Edionwe[facility] LIPID PANEL ([id number])(TOTAL 2020-08-25 17:35:00 Junito Quezada [facility] CHOLESTEROL, [facility] TRIGLYCERIDES, HDL) XR CHEST 1 VW 2020-08-25 11:38:57 Nick Palomino [facility] acute hospital CBC WITH DIFF 2020-08-25 11:35:00 Nick Palomino [facility] acute hospital BASIC METABOLIC PANEL (NA, 2020-08-25 11:35:00 Nick Palomino [facility] K, CL, CO2, GLUCOSE, BUN, Medica l Branch CREATININE, CA) HEPATIC FUNCTION PANEL 2020-08-25 11:35:00 Nick Palomino [facility] ([id number]) (ALB,T.PRO,BILI Medical Branch T,BU/BC,ALT,AST,ALK PHOS) LIPASE 2020-08-25 11:35:00 Nick Palomino [facility] acute hospital TROPONIN I 2020-08-25 11:35:00 Nick Palomino [facility] acute hospital ACTIVATED PARTIAL THRMPLAS 2020-08-25 11:35:00 Nick Palomino [facility] CAROLINA [facility] PROTHROMBIN TIME / INR 2020-08-25 11:35:00 Nick Palomino [facility] N-TERMINAL PRO-BNP 2020-08-25 11:35:[address] [facility] COVID-19 (ID NOW RAPID 2020-08-25 11:32:00 Nick Palomino [facility] TESTING) Medical Branch LAB ONLY COVID 2020-08-25 11:32:00 Nick Palomino [facility] INTERPRETATION [facility] HB ECG ROUTINE & RHYTHM 2020-08-25 11:27:04 Nick Palomino [facility] STRIP [facility] Branch CONSENT/REFUSAL FOR 2020-08-25 11:20:36 Doctor Unassigned, [facility] DIAGNOSIS AND TREATMENT [place] [facility] HOSPITAL ADMISSION 2020-08-25 06:01:00 Doctor Unassigned, [facility] [place] BASIC METABOLIC PANEL (NA, 2020-08-24 14:36:00 Khalife, Wissam [facility] K, CL, CO2, GLUCOSE, BUN, [place] Medica l Branch CREATININE, CA) INSURANCE CORRESPONDENCE 2020-08-20 06:01:00 Doctor Tong, [facility] [place] [facility] HB ECG ROUTINE & RHYTHM 2020-08-17 20:36:36 Herbert Reeves [facility] STRIP Medical Branch CBC WITH DIFF 2020-08-17 20:36:00 Herbert Reeves [facility] Medical Preemption BASIC METABOLIC PANEL (NA, 2020-08-17 20:36:00 Herbert Reeves [facility] K, CL, CO2, GLUCOSE, BUN, Medica l Branch CREATININE, CA) CONSENT/REFUSAL FOR 2020-08-17 20:12:35 Doctor Tong, [facility] DIAGNOSIS AND TREATMENT [place] [facility] BASIC METABOLIC PANEL (NA, 2020-08-17 17:51:00 Vonda Kaur [facility] K, CL, CO2, GLUCOSE, BUN, Medica l Branch CREATININE, CA) MAGNESIUM 2020-08-17 17:51:00 Vonda Kaur [facility] N-TERMINAL PRO-BNP 2020-08-17 17:51:00 Vonda Kaur [facility] EMERGENCY SERVICES 2020-08-17 06:01:00 Doctor Tong, [facility] AGREEMENTS AND [place] [facility] AUTHORIZATIONS BASIC METABOLIC PANEL (NA, 2020-08-03 15:13:00 Robert Callahan [facility] K, CL, CO2, GLUCOSE, BUN, [place] Medica [facility] Branch CREATININE, CA) N-TERMINAL PRO-BNP 2020-08-03 15:13:00 Vonda Kaur [facility] NOTICE OF PRIVACY 2020-08-03 15:03:19 Doctor Tong, [facility] PRACTICES [place] [facility] CONSENT/REFUSAL FOR 2020-08-03 15:03:01 Doctor Tong, [facility] DIAGNOSIS AND TREATMENT [place] [facility] ASSIGNMENT OF BENEFITS 2020-08-03 15:02:44 Doctor Tong, [facility] [place] [facility] Catheterization of right [facility] heart Lithotripsy [facility] Placement of [facility] conduit<sup>1</sup> Plan of Care Planned Activity Planned Date Details Comments Source Future Scheduled 2027-06-26 DTaP,Tdap,and Td Postponed from Unive rsity of Test 00:00:00 Vaccines (1 - Tdap) 1988 (Not [place] [facility] [code = Indicated) Branch DTaP,Tdap,and Td Vaccines (1 - Tdap)] Future Scheduled 2027-06-26 DTaP,Tdap,and Td Postponed from Unive rsity of Test 00:00:00 Vaccines (1 - Tdap) 1988 (Not [place] [facility] [code = Indicated) Branch DTaP,Tdap,and Td Vaccines (1 - Tdap)] Future Scheduled 2027-06-26 DTaP,Tdap,and Td Postponed from Unive rsity of Test 00:00:00 Vaccines (1 - Tdap) 1988 (Not [place] [facility] [code = Indicated) Branch DTaP,Tdap,and Td Vaccines (1 - Tdap)] Future Scheduled 2027-04-22 Screening for University of Test 00:00:00 malignant neoplasm [place] [facility] of colon (procedure) Branch [code = 629790907] Future Scheduled 2027-04-22 Screening for University of Test 00:00:00 malignant neoplasm [place] [facility] of colon (procedure) Branch [code = 821914878] Future Scheduled 2027-04-22 Screening for University of Test 00:00:00 malignant neoplasm [place] [facility] of colon (procedure) Branch [code = 458753443] Future Scheduled 2027-04-22 Screening for University of Test 00:00:00 malignant neoplasm [place] [facility] of colon (procedure) Branch [code = 639949015] Future Scheduled 2027-04-22 Screening for University of Test 00:00:00 malignant neoplasm [place] [facility] of colon (procedure) Branch [code = 674555073] Future Scheduled 2027-04-22 Screening for University of Test 00:00:00 malignant neoplasm [place] [facility] of colon (procedure) Branch [code = 643393796] Future Scheduled 2021-10-12 Depression screening Uni versity of Test 00:00:00 (procedure) [code = [place] [facility] 634512711] Branch Future Scheduled 2021-10-12 Depression screening Uni versity of Test 00:00:00 (procedure) [code = [place] [facility] 907513990] Branch Future Scheduled 2021-10-12 Depression screening Uni versity of Test 00:00:00 (procedure) [code = [place] [facility] [id number]] Branch Future Scheduled 2021-09-29 Creatinine University of Test 00:00:00 measurement [place] [facility] (procedure) [code = Branch [id number]] Future Scheduled 2021-09-29 Creatinine University of Test 00:00:00 measurement [place] [facility] (procedure) [code = Branch [id number]] Future Scheduled 2021-09-29 Creatinine University of Test 00:00:00 measurement [place] [facility] (procedure) [code = Branch [id number]] Future Scheduled 2021-08-25 Calculated low Universit y of Test 00:00:00 density lipoprotein [place] [facility] cholesterol level Branch (procedure) [code = 757159279] Future Scheduled 2021-08-25 Calculated low Universit y of Test 00:00:00 density lipoprotein [place] [facility] cholesterol level Branch (procedure) [code = 658470738] Future Scheduled 2021-08-25 Calculated low Universit y of Test 00:00:00 density lipoprotein [place] [facility] cholesterol level Branch (procedure) [code = 657487488] Future Scheduled 2021-05-23 COVID-19 VACCINE (1) [facility] Test 13:59:55 [code = COVID-19 Hospital VACCINE (1)] Future Scheduled 2021-05-23 COLONOSCOPY [facility] Test 13:59:55 SCREENING [code = Hospital COLONOSCOPY SCREENING] Future Scheduled 2021-05-23 SHINGLES VACCINES Method ist Test 13:59:55 (#1) [code = Hospital SHINGLES VACCINES (#1)] Future Scheduled 2021-05-23 INFLUENZA VACCINE Method ist Test 13:59:55 [code = INFLUENZA Hospital VACCINE] Future Scheduled 2021-03-31 PNEUMOCOCCAL 0-64 Postponed from Univ ersity of Test 00:00:00 YEARS COMBINED 1976 [place] [facility] SERIES (1 of 3 - (Refused) Branch PCV13) [code = PNEUMOCOCCAL 0-64 YEARS COMBINED SERIES (1 of 3 - PCV13)] Future Scheduled 2021-03-31 PNEUMOCOCCAL 0-64 Postponed from Univ ersity of Test 00:00:00 YEARS COMBINED 1976 [place] [facility] SERIES (1 of 3 - (Refused) Branch PCV13) [code = PNEUMOCOCCAL 0-64 YEARS COMBINED SERIES (1 of 3 - PCV13)] Future Scheduled 2021-03-31 PNEUMOCOCCAL 0-64 Postponed from Univ ersity of Test 00:00:00 YEARS COMBINED 1976 [place] [facility] SERIES (1 of 3 - (Refused) Branch PCV13) [code = PNEUMOCOCCAL 0-64 YEARS COMBINED SERIES (1 of 3 - PCV13)] Future Scheduled 2021-03-30 Hemoglobin A1c Universit y of Test 00:00:00 measurement [place] [facility] (procedure) [code = Branch [id number]] Future Scheduled 2021-03-30 Hemoglobin A1c Universit y of Test 00:00:00 measurement [place] [facility] (procedure) [code = Branch [id number]] Future Scheduled 2021-03-30 Hemoglobin A1c Universit y of Test 00:00:00 measurement [place] [facility] (procedure) [code = Branch [id number]] Future Scheduled 2021-02-21 Diabetic foot University of Test 00:00:00 examination [place] [facility] (regime/therapy) Branch [code = 516914748] Future Scheduled 2021-02-21 INFLUENZA VACCINE Univer sity of Test 00:00:00 (Season Ended) [code [place] [facility] = INFLUENZA VACCINE Branch (Season Ended)] Future Scheduled 2021-02-21 Diabetic foot University [facility] Test 00:00:00 examination [place] [facility] (regime/therapy) Branch [code = 292954943] Future Scheduled 2021-02-21 INFLUENZA VACCINE Univer sity of Test 00:00:00 (Season Ended) [code [place] [facility] = INFLUENZA VACCINE Branch (Season Ended)] Future Scheduled 2021-02-21 Diabetic foot [facility] Test 00:00:00 examination [place] [facility] (regime/therapy) Branch [code = 835734258] Future Scheduled 2021-02-21 INFLUENZA VACCINE Univer sity of Test 00:00:00 (Season Ended) [code [place] [facility] = INFLUENZA VACCINE Branch (Season Ended)] Future Scheduled 2021-01-10 Examination of Universit y of Test 00:00:00 retina (procedure) [place] [facility] [code = 201267218] Branch Future Scheduled 2021-01-10 Examination of Universit y of Test 00:00:00 retina (procedure) [place] [facility] [code = 629500127] Branch Future Scheduled 2021-01-10 Examination of Universit y of Test 00:00:00 retina (procedure) [place] [facility] [code = 124955972] Branch Future Scheduled 2020-12-01 Microalbumin [facility] Test 00:00:00 measurement, urine, [place] [facility] quantitative Branch (procedure) [code = 531360283] Future Scheduled 2020-12-01 Microalbumin [facility] Test 00:00:00 measurement, urine, [place] [facility] quantitative [facility] (procedure) [code = 062796834] Future Scheduled 2020-12-01 Microalbumin [facility] Test 00:00:00 measurement, urine, [place] [facility] quantitative [facility] (procedure) [code = 115725526] Future Scheduled 2019 Screening for occult Uni versity of Test 00:00:00 blood in feces [facility] (procedure) [code = Branch 486787314] Future Scheduled 2019 Stool DNA-based Universi ty of Test 00:00:00 colorectal cancer [facility] [place] [facility] screening Branch (procedure) [code = 858021371861938] Future Scheduled 2019 Flexible fiberoptic Univ ersity of Test 00:00:00 sigmoidoscopy [facility] (procedure) [code = Branch 52327175] Future Scheduled 2019 Zoster Recombinant Unive rsity of Test 00:00:00 Vaccine (SHINGRIX) [place] [facility] (1 of 2) [code = Branch Zoster Recombinant Vaccine (SHINGRIX) (1 of 2)] Future Scheduled 2019 Screening for occult Uni versity of Test 00:00:00 blood in feces [facility] (procedure) [code = Branch 122101617] Future Scheduled 2019 Stool DNA-based Universi ty of Test 00:00:00 colorectal cancer [facility] [place] [facility] screening Branch (procedure) [code = 118156068269566] Future Scheduled 2019 Flexible fiberoptic Univ ersity of Test 00:00:00 sigmoidoscopy [facility] (procedure) [code = Branch 23727061] Future Scheduled 2019 Zoster Recombinant Unive rsity of Test 00:00:00 Vaccine (SHINGRIX) [place] [facility] (1 of 2) [code = Branch Zoster Recombinant Vaccine (SHINGRIX) (1 of 2)] Future Scheduled 2019 Screening for occult Uni versity of Test 00:00:00 blood in feces [facility] (procedure) [code = Branch 227510689] Future Scheduled 2019 Stool DNA-based Universi ty of Test 00:00:00 colorectal cancer [facility] [place] [facility] screening Branch (procedure) [code = 013859231739537] Future Scheduled 2019 Flexible fiberoptic Univ ersity of Test 00:00:00 sigmoidoscopy [facility] (procedure) [code = Branch 54623388] Future Scheduled 2019 Zoster Recombinant Unive rsity of Test 00:00:00 Vaccine (SHINGRIX) [place] [facility] (1 of 2) [code = Branch Zoster Recombinant Vaccine (SHINGRIX) (1 of 2)] Future Scheduled 1985 SARS-CoV-2 [facility] Test 00:00:00 (COVID-19) Vaccine [place] [facility] (1) [code = Branch SARS-CoV-2 (COVID-19) Vaccine (1)] Future Scheduled 1985 SARS-CoV-2 [facility] Test 00:00:00 (COVID-19) Vaccine [place] [facility] (1) [code = Branch SARS-CoV-2 (COVID-19) Vaccine (1)] Future Scheduled 1985 SARS-CoV-2 [facility] Test 00:00:00 (COVID-19) Vaccine [place] [facility] (1) [code = Branch SARS-CoV-2 (COVID-19) Vaccine (1)] Encounters Start End Encounter Admission Attending Care Care Encounter Source Date/Time Date/Time Type Type Clinicians Facility Department ID 2022-08-22 2022-08-22 Outpatient Christopher GRIFFITHS [facility] [id number] Univers 13:40:00 13:40:00 ROBBIN [id number] [facility] 2022-01-01 2022-01-01 Outpatient Christopher ANDRADE [facility] [id number] Univers 15:00:00 15:00:00 LILIBETH [id number] [facility] 2021-11-20 2021-11-20 Outpatient Christopher ANDRADE [facility] [id number] Univers 15:00:00 15:00:00 LILIBETH [id number] [facility] 2021-10-30 2021-10-30 [facility] [id number] Univers 13:00:00 13:00:00 [facility] ity [facility] 2021-10-30 2021-10-30 [facility] [id number] Univers 08:00:00 08:00:00 LILIBETH [id number] ity [facility] 2021-10-09 2021-10-09 [facility] [id number] Univers 15:00:00 15:00:00 LILIBETH [id number] [facility] 2021-10-02 2021-10-02 [facility] [id number] Univers 13:00:00 13:00:00 FLORENCE [id number] [facility] 2021-09-20 2021-09-20 Outpatient R [facility] [id number] -[id number] Univers 14:20:00 14:20:00 [id number] ity [facility] 2021-09-20 2021-09-20 Outpatient R [facility] [id number] Univers 14:20:00 [facility]20[facility] 2021-09-12 2021-09-12 Telephone Jed [facility] 1.2.840.114 [id number] Univers 00:00:00 00:00:00 [facility] 350.1.13.10 it y of [id number] [place] [address] Branch OFFICE BUILDING 2021-09-11 2021-09-11 Transition Tatumjanae ROWENA 1.2.840.114 [id number] Univers 00:00:00 00:00:00 of Care Angelique GUERRA 350.1.13.10 i [place] [phone] [place] [address] Branch 2021-09-08 2021-09-09 Outpatient X [facility] [id number] Univers 18:30:00 17:00:00 [place] [facility] 2021-09-08 2021-09-09 Emergency Brooklyn Natarajan S [facility] 1.2.840 .114 [id number] Univers 18:30:00 17:00:00 Yifan Romero 350.1.13.10 it[place] [id number] [facility] 081 Preemption 2021-09-07 2021-09-07 [facility] [id number] Univers 19:00:00 19:01:32 IM[facility] 2021-09-07 2021-09-07 Outpatient R [facility] [id number] -[id number] Univers 19:00:00 19:00:00 [id number] [facility] 2021-09-06 2021-09-06 [facility] 1.2.840.114 [id number] Univers 00:00:00 00:00:00 [facility] 350.1.13.10 i ty of [facility] [place] [id number] [facility] 053 Preemption 2021-09-04 2021-09-04 Telemedici [facility] 1.2.840.114 [id number] Univers 16:00:00 16:20:00 ne Visit Lilibeth Elmer LOWE 350.1.13.10 ity [facility] [place] [phone] Ms dical [facility] 231 [facility] 2021-09-04 2021-09-04 [facility] [id number] Univers 16:00:00 16:00:00 [facility] 2021-08-28 2021-08-28 Office Jorge 1.2.840.0 [id number] Univers 10:00:00 10:29:18 Visit Urszula 55946.1.1 ity of 3.104.2.7 [place] .3.556400 Medica l .8 Preemption 2021-08-28 2021-08-28 [facility] [id number] Univers 10:00:00 10:29:18 URSZULA ity of [facility] 2021-08-28 2021-08-28 Travel 1.2.840.1 1.2.552.533 [id number] Univers 00:00:00 00:00:00 13324.1.1 350.1.13.10 ity of 3.104.2.7 [place]7.3.698 [place] .3.315683 084.8 Medica l .8 Branch 2021-08-23 2021-08-23 Travel 1.2.840.1 1.2.713.603 [id number] Univers 00:00:00 00:00:00 91550.1.1 350.1.13.10 ity of 3.104.2.7 4[place]7.3.698 [place] .3.728937 084.8 Medica l .8 Preemption 2021-08-21 2021-08-21 Refill Robert, 1.2.840.1 [id number] Univers 00:00:00 00:00:00 Wentong 10280.1.1 ity of 3.104.2.7 [place] .3.297081 Medica l .8 Preemption 2021-08-21 2021-08-21 Refill Lupe, 1.2.840.1 [id number] Univers 00:00:00 00:00:00 Lilibeth Payne 78308.1.1 ity of 3.104.2.7 [place] .3.855818 Medica l .8 Preemption 2021-08-16 2021-08-16 Copy Center Associate Robbin Griffiths 1.2.840.9 [id number] Univers 16:45:00 16:59:31 Visit [facility] 86757.1.1 ity of 3.104.2.7 [place] .3.039907 Medica l .8 Preemption 2021-08-16 2021-08-16 Office Hong Griffiths2.840.9 [id number] Univers 15:20:00 16:45:47 Visit Tejo 06470.1.1 ity of 3.104.2.7 [place] .3.268583 Medica l .8 Branch 2021-08-16 2021-08-16 Outpatient R AYE [facility] [id number] Univers 15:20:00 16:45:47 TEJO ity of [facility] 2021-08-16 2021-08-16 Travel 1.2.840.1 1.2.285.603 [id number] Univers 00:00:00 00:00:00 73739.1.1 350.1.13.10 ity of 3.104.2.7 [place]7.3.698 [place] .3.341103 084.8 Medica l .8 Preemption 2021-08-08 2021-08-08 Telephone Leopoldo, 1.2.840.9 [id number] Univers 00:00:00 00:00:00 Sherri 97990.1.1 ity of 3.104.2.7 [place] .3.874289 Medica l .8 Branch 2021-08-08 2021-08-08 Refill Lupe, 1.2.840.6 [id number] Univers 00:00:00 00:00:00 Lilibeth A 89110.1.1 ity of 3.104.2.7 [place] .3.673252 Medica l .8 Preemption 2021-08-08 2021-08-08 Refill Lupe, 1.2.840.5 [id number] Univers 00:00:00 00:00:00 Lilibeth A 73828.1.1 ity of 3.104.2.7 [place] .3.272013 Medica l .8 Branch 2021-08-08 2021-08-08 Telephone Lupe 1.2.840.2 [id number] Univers 00:00:00 00:00:00 Lilibeth A 24642.1.1 ity of 3.104.2.7 [place] .3.022174 Medica l .8 Preemption 2021-08-08 2021-08-08 Patient Doctor 1.2.840.4 [id number] Univers 00:00:00 00:00:00 Secure Msg Unassigned, 01531.1.1 ity of [place] 3.104.2.7 [place] .3.939242 Medica l .8 Branch 2021-07-31 2021-07-31 Telephone Clemencia Hdz 1.2.840.0 [id number] Univers 00:00:00 00:00:00 15714.1.1 ity of 3.104.2.7 [place] .3.028005 Medica l .8 Branch 2021-07-30 2021-07-30 Refill Arnold [place] 1.2.840.2 [id number] Univers 00:00:00 00:00:00 N 27086.1.1 ity of 3.104.2.7 [place] .3.094826 Medica l .8 Branch 2021-07-28 2021-07-28 Refill Rocco, 1.2.840.0 [id number] Univers 00:00:00 00:00:00 Qiangjun 68462.1.1 ity of 3.104.2.7 [place] .3.300999 Medica l .8 Branch 2021-07-28 2021-07-28 Refill Khalife, 1.2.840.4 [id number] Univers 00:00:00 00:00:00 Wissam 31001.1.1 ity of [place] 3.104.2.7 [place] .3.803454 Medica l .8 Branch 2021-07-23 2021-07-23 Telemedici Arnold Lancaster 1.2.840.1 [id number] Univers 16:30:00 17:41:25 ne Visit N 97418.1.1 ity of 3.104.2.7 [place] .3.461624 Medica l .8 Branch 2021-07-23 2021-07-23 Outpatient R ARNOLD LANCASTER [facility] [id number] Univers 16:30:00 17:41:25 ity of [facility] 2021-07-17 2021-07-17 Outpatient R ROBERT [facility] [id number] Univers 13:00:00 13:00:00 WENTONG ity of [facility] 2021-07-17 2021-07-17 Telephone Arnold [place] 1.2.840.6 [id number] Univers 00:00:00 00:00:00 N 17145.1.1 ity of 3.104.2.7 [place] .3.408493 Medica l .8 Preemption 2021-07-12 2021-07-12 Laboratory Elyssa Hannasujey Hennessy 1.2.840.1 [id number] Univers 10:45:00 11:26:59 Only Only, Ang Db Test 87967.1.1 ity of 3.104.2.7 [place] .3.766168 Medica l .8 Preemption 2021-07-12 2021-07-12 [facility] [id number] Univers 10:45:00 11:26:59 ISADORA ity o f [facility] 2021-07-12 2021-07-12 Travel 1.2.840.1 1.2.166.444 [id number] Univers 00:00:00 00:00:00 12807.1.1 350.1.13.10 ity of 3.104.2.7 [place]7.3.698 [place] .3.552093 084.8 Medica l .8 Preemption 2021-07-09 2021-07-09 Refill Musunuru, 1.2.840.4 [id number] Univers 00:00:00 00:00:00 Tejo 00731.1.1 ity of 3.104.2.7 [place] .3.410329 Medica l .8 Branch 2021-07-03 2021-07-03 Refill Khalife, 1.2.840.6 [id number] Univers 00:00:00 00:00:00 Wissam 64789.1.1 ity of [place] 3.104.2.7 [place] .3.290773 Medica l .8 Branch 2021-07-03 2021-07-03 Refill Khalife, 1.2.840.6 [id number] Univers 00:00:00 00:00:00 Wissam 28380.1.1 ity of [place] 3.104.2.7 [place] .3.421012 Medica l .8 Branch 2021-06-30 2021-06-30 Nara Moe 1.2.840.2 [id number] Univers 16:40:00 16:56:06 Bette Rollins Imani 45013.1.1 ity of 3.104.2.7 [place] .3.463325 Medica l .8 Branch 2021-06-30 2021-06-30 [facility] KALYN [facility] [id number] Univers 16:40:00 16:56:06 NARA ity o f [facility] 2021-06-29 2021-06-29 Telephone Only, Ang 1.2.840.4 [id number] Univers 00:00:00 00:00:00 Db Test 19587.1.1 ity of 3.104.2.7 [place] .3.292393 Medica l .8 Branch 2021-06-29 2021-06-29 Refill Khalife, 1.2.840.5 [id number] Univers 00:00:00 00:00:00 Wissam 02733.1.1 ity of [place] 3.104.2.7 [place] .3.335878 Medica l .8 Branch 2021-06-29 2021-06-29 Refill Khalife, 1.2.840.6 [id number] Univers 00:00:00 00:00:00 Wissam 75951.1.1 ity of [place] 3.104.2.7 [place] .3.450667 Medica l .8 Branch 2021-06-28 2021-06-28 [facility], 1.2.840.1 [id number] Univers 17:33:36 23:59:00 Encounter Rania 72298.1.1 it y of 3.104.2.7 [place] .3.664336 Medica l .8 Branch 2021-06-28 2021-06-28 Urgent Phan Low 1.2.840.8 [id number] Univers 17:00:00 17:49:59 Care Mary Maddox 74337.1.1 ity of 3.104.2.7 [place] .3.352984 Medica l .8 Branch 2021-06-28 2021-06-28 Outpatient R DEVANTE [facility] [id number] Univers 17:00:00 17:49:59 PHAN ity of [facility] 2021-06-28 2021-06-28 Travel 1.2.840.1 1.2.256.850 [id number] Univers 00:00:00 00:00:00 90422.1.1 350.1.13.10 ity of 3.104.2.7 [place].7.3.698 [place] .3.949313 084.8 Medica l .8 Preemption 2021-06-25 2021-06-25 Telephone Andrade, 1.2.840.5 [id number] Univers 00:00:00 00:00:00 Lilibeth A 48878.1.1 ity of 3.104.2.7 [place] .3.219627 Medica l .8 Branch 2021-06-21 2021-06-21 Telephone Andrade, 1.2.840.6 [id number] Univers 00:00:00 00:00:00 Lilibeth A 82834.1.1 ity of 3.104.2.7 [place] .3.321315 Medica l .8 Branch 2021-06-07 2021-06-07 Telephone Andrade, 1.2.840.1 [id number] Univers 00:00:00 00:00:00 Lilibeth A 02498.1.1 ity of 3.104.2.7 [place] .3.132834 Medica l .8 Preemption 2021-06-05 2021-06-06 Outpatient Christopher ANDRADE [facility] [id number] Univers 15:40:00 08:45:44 LILIBETH iterin [facility] 2021-05-10 2021-05-10 Outpatient R BERNIE, [facility] [id number] Univers 16:00:00 16:30:21 SAMRA [facility] 2021-04-03 2021-04-03 Outpatient R ROCCO [facility] [id number] Univers 13:00:00 16:55:35 CHER alba o f [facility] 2020-12-14 2020-12-14 Outpatient R LUPE [facility] [id number] Univers 09:56:34 23:59:00 LILIBETH erin [facility] 2020-10-24 2020-10-24 Outpatient R PINGSERGE [facility] [id number] Univers 14:00:00 14:14:03 ROBERT [facility] 2020-10-02 2020-10-02 [facility] [id number] Univers 16:20:00 16:43:29 LILIBETH [facility] 2016-05-17 2016-05-18 [facility] [id number] Memoria 21:36:00 00:01:00 r Freddy 05 [facility] 2016-05-05 2016-05-07 [facility] [id number] Memoria 22:51:00 00:35:00 christopher Hayes 04 [facility] 2016-04-25 2016-04-26 [facility] [id number] Memoria 23:01:00 02:08:00 christopher Hayes 03 [facility] 2016-04-25 2016-04-26 [facility] [id number] Memoria 23:01:00 02:08:00 christopher Hayes 03 [facility] 2016-03-05 2016-03-05 [facility] [id number] Memoria 11:59:00 14:36:00 christopher Hayes 02 [facility] 2016-03-05 2016-03-05 [facility] [id number] Memoria 11:59:00 14:36:00 christopher Hayes 02 [facility] 2016-03-02 2016-03-02 [facility] [id number] Memoria 10:00:00 14:17:00 [place] 01 [facility] 2016-03-02 2016-03-02 Emergency [facility] [id number] Memoria 10:00:00 14:17:00 r [place] 01 [facility] 2016-02-17 2016-02-20 Inpatient [facility] [id number] Memoria 10:13:00 01:44:00 r Freddy 00 [facility] 2016-02-17 2016-02-20 Inpatient [facility] [id number] Memoria 10:13:00 01:44:00 r [place] 00 [facility] Results Test Description Test Time Test Comments Results Result Comments Source POTASSIUM SERUM 2021-09-09 21:31:34 Test Item Value Reference Range Interpretation Comme nts K (test code = 1493580128) 4.3 mmol/L 3.5-5.0 S light hemolysis Lab Interpretation (test code = 40662-5) Normal [facility] [id number] 19:34:28 Test Item Value Reference Interpretation Comments Range TROPONIN I (test 0.010 ng/mL See_Comment [Automated code = 2385012276) message] The system which generated this result transmitted reference range : <=0.034. The reference range was not used to interpret this result as normal/abnormal . SUNIL (test code = Reference (Normal) SUNIL) Range (defined by the 99th percentile reference limit): <= 0.034 ng/mL Note: Cardiac troponin begins to rise 3-4 hours after the onset of ischemia. Repeat in 4-6 hours if the sample was drawn within 3-4 hours of the onset of the symptom and found normal. Diagnosis of myocardial injury is made with acute changes in cTn concentrations with at least one serial sample above the 99th percentile upper reference limit (URL), taken together with the patient's clinical presentation. Biotin has been reported to cause a negative bias, interpret results relative to patient's use of biotin. Lab Interpretation Normal (test code = 68659-3) [facility]2021-09-09 17:02:54 Test Item Value Reference Range Interpretation Comments POCT GLU (test code = 3009046607) 101 mg/dL 70-110 Lab Interpretation (test code = Normal 34468-1) [facility]TTE)2021-09-09 16:46:40 Test Item Value Reference Range Interpretation Comments LVOT diameter (test code 2.31 cm = 9256394159) Ao root annulus (test 3.7 cm code = 2101447380) Ao root diam (test code 3.70 cm = 8168009172) Aortic root (test code = 3.7 cm 7684016971) LA size (test code = 4.4 cm 2157735745) ACS (test code = 2.70 cm 7078369268) PV PEAK VELOCITY (test 109.0 cm/s code = 5866695541) PV peak gradient (test mmHg code = 1142556289) MV E-F slope (test code 53.30 cm/s = 7317517746) MV Peak E Michelle (test code 119.0 cm/s = 8530771362) MV Peak A Michelle (test code 111.8 cm/s = 6440555728) E/A ratio (test code = ratio 8934642161) MV valve area p 1/2 4.20 cm2 method (test code = 2172134823) MV dec slope (test code 672.10 cm/s2 = 9147486492) MV P1/2t max michelle (test 119.60 cm/s code = 4958056097) LVOT stroke volume (test 111.40 cm3 code = 9520628623) LVOT peak michelle (test code 123.6 cm/s = 1346810752) LVOT mn grad (test code mmHg = 9422907911) AV LVOT peak gradient mmHg (test code = 1636008980) LVOT peak VTI (test code 26.5 cm = 3304158012) LV V1 mean (test code = 70.40 cm/s 8765053245) Aortic valve mean 88.3 cm/s velocity (test code = 5788072084) Ao peak michelle (test code = 141.2 cm/s 6494811410) Ao VTI (test code = 28.3 cm 1730640131) AV area by cont VTI 3.9 cm2 (test code = 2871174766) AV area peak michelle (test 3.7 cm2 code = 6107214472) Ao max PG (test code = 8.00 mm[Hg] 4121682101) AV peak gradient (test mmHg code = 5133392656) AV valve area (test code 3.90 cm2 = 8373228776) AV mean gradient (test mmHg code = 3753101360) TR Peak Michelle (test code = 228.0 cm/s 0730335319) Triscuspid Valve mmHg Regurgitation Peak Gradient (test code = 9913987966) LVIDD (test code = 5.50 cm 8561455937) IVS (test code = 1.32 cm 0709945378) Interventricular Septum 1.32 cm Diastolic Thickness by 2D (test code = 6304468) LVPWD (test code = 1.29 cm 8056516876) PW (test code = 1.29 cm 0.6-1.8 7728224767) EF(Teich) (test code = 57.00 % 5881055085) LVIDS (test code = 3.80 cm 9142475991) FS (test code = 30 % 3636427288) EF - 2D (test code = 57.00 % 02335651) Radiology Study observation (narrative) (test code = 41252-0) SUNIL (test code = SUNIL) ?Left?Ventricle: Left ventricle size is normal. Mildly increased wall thickness. Normal wall motion and no regional wall motion abnormalities. Low normal systolic function with a visually estimated EF of 50 - 55%. ?Right?Ventricle: Right ventricle is normal in size and function. Normal wall thickness. ?Tricuspid?Valve: Tricuspid valve is normal size and function. Trace transvalvular regurgitation. Insufficient regurgant jet to estimate RVSP. ?IVC/SVC: IVC was not well visualized. VitalsHeight Weight BSA (Calculated - sq m) BP Pulse 5' 10" (1.778 m) 271 lb (122.9 kg) 2.46 sq meters 116/[address] [facility] BranchLIPID PANEL (98110)(TOTAL CHOLESTEROL, TRIGLYCERIDES, HDL)2021-09-09 15:12:57 Test Item Value Reference Range Interpretation Comments CHOL (test code = 153 mg/dL 120-200 6234420942) HDL (test code = 34 mg/dL >40 L 6021369827) HDLC RATIO (test code = See_Comment [Au tomated message] 9237127101) The system whic h generated this result transmit vale reference range : <=5.0. The refe rence range was not u sed to interpret th is result as normal/abnormal . TRIG (test code = 153 mg/dL 30-170 8390673174) LDL CHOL (test code = 88 mg/dL See_Comment [Auto mated message] 62952-9) The system [employer] generated this result transmit vale reference range : <=160. The refe rence range was not u sed to interpret th is result as normal/abnormal . VLDL (test code = 31 mg/dL 5-60 8351978194) Lab Interpretation (test Abnormal code = 19056-7) [facility]2021-09-09 13:11:51 Test Item Value Reference Range Interpretation Comments POCT GLU (test code = 5830464189) 108 mg/dL 70-110 Lab Interpretation (test code = Normal 14014-5) [facility] Metabolic Panel (NA, K, CL, CO2, GLUCOSE, BUN, CREATININE, CA)2021-09-09 10:53:59 Test Item Value Reference Range Interpretation Comments NA (test code = 137 mmol/L 135-145 3885905887) K (test code = 3.1 mmol/L 3.5-5.0 L 3015009897) CL (test code = 99 mmol/L 98-108 8373936449) CO2 TOTAL (test code = 32 mmol/L 23-31 H 2204326627) AGAP (test code = 2-16 6111847359) BUN (test code = 17 mg/dL 7-23 5155857464) GLUCOSE (test code = 95 mg/dL 70-110 2874469790) CREATININE (test code = 1.32 mg/dL 0.60-1.25 H 5315799732) CALCIUM (test code = 9.1 mg/dL 8.6-10.6 4630433490) eGFR (test code = mL/min/1.73m2 0096982473) SUINL (test code = SUNIL) Association of Glomerular Filtration Rate (GFR) and Staging of Kidney Disease* + --+ --+ ------+| GFR (mL/min/1.73 m2) ?| With Kidney Damage ?| ?Without Kidney Damage+ --------+ --------+ +| ?>90 ?| ?Stage one ?| ? Normal ?+ ---+ ---+ -------+| ?60-89 ?| ?Stage two ?| ? Decreased GFR ? + --+ --+ ------+| ?30-59 ?| ?Stage three ?| ? Stage three ? + --+ --+ ------+| ?15-29 ?| ?Stage four ? | ? Stage four ?+ ---+ ---+ -------+| ?<15 (or dialysis) ? ?| ?Stage five ? | ? Stage five ?+ ---+ ---+ -------+ *Each stage assumes the associated GFR level has been in effect for at least three months. ?Stages 1 to 5, with or without kidney [...] tests). Lab Interpretation Abnormal (test code = 65206-4) [facility] with [id number] 10:12:17 Test Item Value Reference Range Interpretation Comments WBC (test code = See_Comment [Automated 5590-2) message] The sy stem which generated this result transmitted reference range : 4.20 - 10.70 10*3/?L. The reference range was not used to interpret this result as normal/abnormal . RBC (test code = See_Comment [Automated 529-8) message] The sy stem which generated this result transmitted reference range : 4.26 - 5.52 10*6/?L. The reference range was not used to interpret this result as normal/abnormal . HGB (test code = 10.5 g/dL 12.2-16.4 L 718-7) HCT (test code = 33.1 % 38.4-49.3 L 4544-3) MCV (test code = 76.8 fL 81.7-95.6 L 787-2) MCH (test code = 24.4 pg 26.1-32.7 L 785-6) MCHC (test code = 31.7 g/dL 31.2-35.0 786-4) RDW-SD (test code = 45.4 fL 38.5-51.6 43392-5) RDW-CV (test code = 16.3 % 12.1-15.4 H 788-0) PLT (test code = See_Comment [Automated 777-3) message] The sy stem which generated this result transmitted reference range : 150 - 328 10*3/ ?L. The reference r shashi was not used to interpret this result as normal/abnormal . MPV (test code = 9.4 fL 9.8-13.0 L 31617-3) NRBC/100 WBC (test See_Comment [Automat ed code = 3096612798) message] The system which generated this result transmitted reference range : 0.0 - 10.0 /100 WBCs. The refer ence range was not u sed to interpret th is result as normal/abnormal . NRBC x10^3 (test code <0.01 See_Comment [Auto mated = 8987247949) message] The s ystem which generated this result transmitted reference range : 10*3/?L. The reference range was not used to interpret this result as normal/abnormal . GRAN MAT (NEUT) % 70.3 % (test code = 770-8) IMM GRAN % (test code 0.50 % = 2109955754) LYMPH % (test code = 20.2 % 736-9) MONO % (test code = 7.3 % 5905-5) EOS % (test code = 1.3 % 713-8) BASO % (test code = 0.4 % 706-2) GRAN MAT x10^3(ANC) 7.09 10*3/uL 1.99-6.95 H (test code = 7157900558) IMM GRAN x10^3 (test 0.05 10*3/uL 0.00-0.06 code = 2292692436) LYMPH x10^3 (test code 2.04 10*3/uL 1.09-3.23 = 731-0) MONO x10^3 (test code 0.74 10*3/uL 0.36-1.02 = 742-7) EOS x10^3 (test code = 0.13 10*3/uL 0.06-0.53 711-2) BASO x10^3 (test code 0.04 10*3/uL 0.01-0.09 = 704-7) Lab Interpretation Abnormal (test code = 33196-8) [facility] [id number] 07:46:24 Test Item Value Reference Interpretation Comments Range TROPONIN I (test 0.004 ng/mL See_Comment [Automated code = 9035564039) message] The system which generated this result transmitted reference range : <=0.034. The reference range was not used to interpret this result as normal/abnormal . SUNIL (test code = Reference (Normal) SUNIL) Range (defined by the 99th percentile reference limit): <= 0.034 ng/mL Note: Cardiac troponin begins to rise 3-4 hours after the onset of ischemia. Repeat in 4-6 hours if the sample was drawn within 3-4 hours of the onset of the symptom and found normal. Diagnosis of myocardial injury is made with acute changes in cTn concentrations with at least one serial sample above the 99th percentile upper reference limit (URL), taken together with the patient's clinical presentation. Biotin has been reported to cause a negative bias, interpret results relative to patient's use of biotin. Lab Interpretation Normal (test code = 46878-1) [facility] [id number]-[id number] 02:24:53 Test Item Value Reference Range Interpretation Comments NT-proBNP (test code 80 pg/mL See_Comment Hemolyz ed = 1874222946) specimen [Automated message] The system which generated this result transmitted reference range : <=125. The reference range was not used to interpret this result as normal/abnormal . SUNIL (test code = SUNIL) Biotin has been reported to cause a negative bias, interpret results relative to patient's use of biotin. Lab Interpretation Normal (test code = 38663-3) [facility] [id number] 01:31:29 Test Item Value Reference Interpretation Comments Range TROPONIN I (test 0.004 ng/mL See_Comment [Automated code = 1983230506) message] The system which generated this result transmitted reference range : <=0.034. The reference range was not used to interpret this result as normal/abnormal . SUNIL (test code = Reference (Normal) SUNIL) Range (defined by the 99th percentile reference limit): <= 0.034 ng/mL Note: Cardiac troponin begins to rise 3-4 hours after the onset of ischemia. Repeat in 4-6 hours if the sample was drawn within 3-4 hours of the onset of the symptom and found normal. Diagnosis of myocardial injury is made with acute changes in cTn concentrations with at least one serial sample above the 99th percentile upper reference limit (URL), taken together with the patient's clinical presentation. Biotin has been reported to cause a negative bias, interpret results relative to patient's use of biotin. Lab Interpretation Normal (test code = 22699-5) [facility]woodPROTHROM[facility] TIME / [id number] 01:22:28 Test Item Value Reference Range Interpretation Comments PROTIME PATIENT (test See_Comment [Auto mated message] code = 5964-2) The system [employer] generated this result transmitted ref erence range: 12.0 - 1 4.7 Seconds. The re ference range was not u sed to interpret this result as normal/abnor mal. INR (test code = 6301-6) Nor mal INR <1.1; Warfarin Therap eutic range 2.0 to 3. 0 or 2.5 to 3.5, dep ending upon the indica tions. Lab Interpretation (test Normal code = 76783-4) [facility]wood[facility] METABOLIC PANEL (73833)2021-09-09 01:20:47 Test Item Value Reference Range Interpretation Comments NA (test code = 137 mmol/L 135-145 3571673949) K (test code = 3.7 mmol/L 3.5-5.0 0250181763) CL (test code = 99 mmol/L 98-108 0613322622) CO2 TOTAL (test code = 24 mmol/L 23-31 4011127410) AGAP (test code = 2-16 2258052262) BUN (test code = 17 mg/dL 7-23 4364683157) GLUCOSE (test code = 143 mg/dL 70-110 H 8513166295) CREATININE (test code = 1.41 mg/dL 0.60-1.25 H 1759776708) TOTAL BILI (test code = 0.6 mg/dL 0.1-1.0 2181015802) CALCIUM (test code = 9.4 mg/dL 8.6-10.6 6222253761) T PROTEIN (test code = 7.7 g/dL 6.3-8.2 8676003194) ALBUMIN (test code = 4.3 g/dL 3.5-5.0 9611984969) ALK PHOS (test code = 135 U/L 34-122 H 8233318858) ALTv (test code = 25 U/L 5-50 1742-6) AST(SGOT) (test code = 37 U/L 13-40 5734700014) eGFR (test code = mL/min/1.73m2 1962974255) SUNIL (test code = SUNIL) Association of Glomerular Filtration Rate (GFR) and Staging of Kidney Disease* + --+ --+ ------+| GFR (mL/min/1.73 m2) ?| With Kidney Damage ?| ?Without Kidney Damage+ --------+ --------+ +| ?>90 ?| ?Stage one ?| ? Normal ?+ ---+ ---+ -------+| ?60-89 ?| ?Stage two ?| ? Decreased GFR ? + --+ --+ ------+| ?30-59 ?| ?Stage three ?| ? Stage three ? + --+ --+ ------+| ?15-29 ?| ?Stage four ? | ? Stage four ?+ ---+ ---+ -------+| ?<15 (or dialysis) ? ?| ?Stage five ? | ? Stage five ?+ ---+ ---+ -------+ *Each stage assumes the associated GFR level has been in effect for at least three months. ?Stages 1 to 5, with or without kidney [...] tests). Lab Interpretation Abnormal (test code = 91925-0) [facility]wood[facility]IPASE2022-[facility]-20 01:20:07 Test Item Value Reference Range Interpretation Comments LIPASE (test code = 3116590613) 68 U/L 0-220 Lab Interpretation (test code = Normal 30375-8) [facility] WITH [id number] 01:12:26 Test Item Value Reference Range Interpretation Comments WBC (test code = See_Comment [Automated 6690-2) message] The sy stem which generated this result transmitted reference range : 4.20 - 10.70 10*3/?L. The reference range was not used to interpret this result as normal/abnormal . RBC (test code = See_Comment [Automated 789-8) message] The sy stem which generated this result transmitted reference range : 4.26 - 5.52 10*6/?L. The reference range was not used to interpret this result as normal/abnormal . HGB (test code = 12.3 g/dL 12.2-16.4 718-7) HCT (test code = 38.9 % 38.4-49.3 4544-3) MCV (test code = 76.1 fL 81.7-95.6 L 787-2) MCH (test code = 24.1 pg 26.1-32.7 L 785-6) MCHC (test code = 31.6 g/dL 31.2-35.0 786-4) RDW-SD (test code = 45.0 fL 38.5-51.6 64880-1) RDW-CV (test code = 16.4 % 12.1-15.4 H 788-0) PLT (test code = See_Comment [Automated 777-3) message] The sy stem which generated this result transmitted reference range : 150 - 328 10*3/ ?L. The reference r shashi was not used to interpret this result as normal/abnormal . MPV (test code = 9.2 fL 9.8-13.0 L 21611-1) NRBC/100 WBC (test See_Comment [Automat ed code = 3449035774) message] The system which generated this result transmitted reference range : 0.0 - 10.0 /100 WBCs. The refer ence range was not u sed to interpret th is result as normal/abnormal . NRBC x10^3 (test code <0.01 See_Comment [Auto mated = 9180562738) message] The s ystem which generated this result transmitted reference range : 10*3/?L. The reference range was not used to interpret this result as normal/abnormal . GRAN MAT (NEUT) % 72.9 % (test code = 770-8) IMM GRAN % (test code 0.30 % = 3163879044) LYMPH % (test code = 18.7 % 736-9) MONO % (test code = 6.6 % 5905-5) EOS % (test code = 1.1 % 713-8) BASO % (test code = 0.4 % 706-2) GRAN MAT x10^3(ANC) 7.70 10*3/uL 1.99-6.95 H (test code = 5736661740) IMM GRAN x10^3 (test 0.03 10*3/uL 0.00-0.06 code = 4111672135) LYMPH x10^3 (test code 1.97 10*3/uL 1.09-3.23 = 731-0) MONO x10^3 (test code 0.70 10*3/uL 0.36-1.02 = 742-7) EOS x10^3 (test code = 0.12 10*3/uL 0.06-0.53 711-2) BASO x10^3 (test code 0.04 10*3/uL 0.01-0.09 = 704-7) Lab Interpretation Abnormal (test code = 75910-2) [facility]woodPOHI HEMOGLOBIN A1C [id number] 15:55:00 Test Item Value Reference Range Interpretation Comments POCT HBA1C (test code = 4548-4) 5.8 % 4-6 [facility] KingwoodFERRITIN [id number] 01:37:45 Test Item Value Reference Range Interpretation Comments FERRITIN (test code = 63.6 ng/mL 18.0-464.0 0322055217) SUNIL (test code = SUNIL) Biotin has been reported to cause a negative bias, interpret results relative to patient's use of biotin. Lab Interpretation (test Normal code = 94527-4) [facility] KingwoodIRON [id number] 01:03:36 Test Item Value Reference Range Interpretation Comments IRON (test code = 6520859923) 31 ug/dL 50-160 L TIBC (test code = 6695726256) 286 ug/dL 250-410 % FE SAT (test code = 6216947697) 11 % 20-50 L Lab Interpretation (test code = Abnormal 27981-1) [facility]woodPHOSPHORUS2022-02-25 00:53:56 Test Item Value Reference Range Interpretation Comments PHOSPHORUS (test code = 9564613533) 3.8 mg/dL 2.5-5.0 Lab Interpretation (test code = Normal 19621-3) [facility]woodURIC [id number] 00:53:56 Test Item Value Reference Range Interpretation Comments URIC ACID (test code = 8936436073) 3.7 mg/dL 3.6-8.0 Lab Interpretation (test code = Normal 00574-8) [facility]woodMAGNESIUM2022-02-25 00:53:56 Test Item Value Reference Range Interpretation Comments MAGNESIUM (test code = 7658174633) 2.0 mg/dL 1.7-2.4 Lab Interpretation (test code = Normal 64917-1) [facility]woodCOMP. METABOLIC PANEL (76188)2021-08-17 00:53:56 Test Item Value Reference Range Interpretation Comments NA (test code = 136 mmol/L 135-145 6536230262) K (test code = 4.1 mmol/L 3.5-5.0 9883679582) CL (test code = 100 mmol/L 98-108 6833781771) CO2 TOTAL (test code = 28 mmol/L 23-31 4860414854) AGAP (test code = 2-16 9167026948) BUN (test code = 16 mg/dL 7-23 9816182183) GLUCOSE (test code = 160 mg/dL 70-110 H 6852297006) CREATININE (test code = 1.50 mg/dL 0.60-1.25 H 7310160022) TOTAL BILI (test code = 0.5 mg/dL 0.1-1.0 2219049042) CALCIUM (test code = 9.4 mg/dL 8.6-10.6 8465715763) T PROTEIN (test code = 7.5 g/dL 6.3-8.2 5301228148) ALBUMIN (test code = 4.2 g/dL 3.5-5.0 9123919230) ALK PHOS (test code = 138 U/L 34-122 H 2281700394) ALTv (test code = 25 U/L 5-50 1742-6) AST(SGOT) (test code = 23 U/L 13-40 8072211986) eGFR (test code = mL/min/1.73m2 7350886609) SUNIL (test code = SUNIL) Association of Glomerular Filtration Rate (GFR) and Staging of Kidney Disease* + --+ --+ ------+| GFR (mL/min/1.73 m2) ?| With Kidney Damage ?| ?Without Kidney Damage+ --------+ --------+ +| ?>90 ?| ?Stage one ?| ? Normal ?+ ---+ ---+ -------+| ?60-89 ?| ?Stage two ?| ? Decreased GFR ? + --+ --+ ------+| ?30-59 ?| ?Stage three ?| ? Stage three ? + --+ --+ ------+| ?15-29 ?| ?Stage four ? | ? Stage four ?+ ---+ ---+ -------+| ?<15 (or dialysis) ? ?| ?Stage five ? | ? Stage five ?+ ---+ ---+ -------+ *Each stage assumes the associated GFR level has been in effect for at least three months. ?Stages 1 to 5, with or without kidney [...] tests). Lab Interpretation Abnormal (test code = 92671-9) [facility]woodLACTATE [id number] 00:41:50 Test Item Value Reference Range Interpretation Comments LDH (test code = 9688807248) 283 U/L 300-600 L Lab Interpretation (test code = Abnormal 31745-3) [facility] KingwoodD-ILLHM2950-12-02 00:26:49 Test Item Value Reference Interpretation Comments Range D-DIMER (test code = See_Comment [Autom ated 2030455798) message] The system which generated this result transmitted reference range : <0.50 ?g/mL (FEU). The reference range was not used to interpret this result as normal/abnormal . SUNIL (test code = This test may be SUNIL) used in conjunction with a clinical pretest probability (PTP) assessment model to exclude venous thromboembolism (VTE) in patients suspected of deep venous thrombosis (DVT) and pulmonary embolism (PE) A D-Dimer value less than 0.50 ?g/ml (FEU) has a negative predicative value of [...] the clinical context, in forming a diagnosis. Lab Interpretation Normal (test code = 13327-5) [facility] WITH [id number] 00:21:45 Test Item Value Reference Range Interpretation Comments WBC (test code = See_Comment H [Automated 3590-2) message] The system which generated this result transmit vale reference range : 4.20 - 10.70 10*3/?L. The reference range was not used to interpret this result as normal/abnormal . RBC (test code = See_Comment [Automated 469-8) message] The system which generated this result transmit vale reference range : 4.26 - 5.52 10*6/?L. The reference range was not used to interpret this result as normal/abnormal . HGB (test code = 11.6 g/dL 12.2-16.4 L 718-7) HCT (test code = 37.1 % 38.4-49.3 L 4544-3) MCV (test code = 77.6 fL 81.7-95.6 L 787-2) MCH (test code = 24.3 pg 26.1-32.7 L 785-6) MCHC (test code = 31.3 g/dL 31.2-35.0 786-4) RDW-SD (test code = 47.6 fL 38.5-51.6 14797-7) RDW-CV (test code = 16.9 % 12.1-15.4 H 788-0) PLT (test code = See_Comment H [Automated 777-3) message] The system which generated this result transmit vale reference range : 150 - 328 10*3/ ?L. The reference range was not u sed to interpret th is result as normal/abnormal . MPV (test code = 9.7 fL 9.8-13.0 L 40119-8) NRBC/100 WBC (test See_Comment [Automat ed code = 6925922348) message] The system which generated this result transmit vale reference range : 0.0 - 10.0 /100 WBCs. The reference range was not used to interpret this result as normal/abnormal . NRBC x10^3 (test code <0.01 See_Comment [Auto mated = 0730859801) message] The system which generated this result transmit vale reference range : 10*3/?L. The reference range was not used to interpret this result as normal/abnormal . GRAN MAT (NEUT) % 82.7 % (test code = 770-8) IMM GRAN % (test code 0.40 % = 5310125119) LYMPH % (test code = 10.7 % 736-9) MONO % (test code = 5.0 % 5905-5) EOS % (test code = 0.8 % 713-8) BASO % (test code = 0.4 % 706-2) GRAN MAT x10^3(ANC) 11.18 10*3/uL 1.99-6.95 H (test code = 7374799036) IMM GRAN x10^3 (test 0.06 10*3/uL 0.00-0.06 code = 1414284796) LYMPH x10^3 (test code 1.45 10*3/uL 1.09-3.23 = 731-0) MONO x10^3 (test code 0.67 10*3/uL 0.36-1.02 = 742-7) EOS x10^3 (test code = 0.11 10*3/uL 0.06-0.53 711-2) BASO x10^3 (test code 0.05 10*3/uL 0.01-0.09 = 704-7) Lab Interpretation Abnormal (test code = 01499-3) [facility] ONLY COVID [id number] 21:58:56COVID DMT InterpretationInterpretation/Recommendations: Molecular NAAT Tests for Active Infection with [...] week of symptoms). Tests for IgM and/or IgGAntibodies to the SARS-CoV-2 Virus: If the patient develops COVID-19 illness in the future, testingfor IgM and IgG antibodies approximately 3 weeks [...] record. [facility]ORAT[facility] SERVICESCOVID Resu vjlBSAL-LnX-9 Rapid ID NOW (no units) Date Value 09/28/2020 Not Detected 08/25/2020 Not Detected 02/09/2020Not Detected 10/26/2019 Not Detected 10/11/2019 Not Detected [facility] 2020-09-29 16:55:33 Test Item Value Reference Range Interpretation Comments POCT GLU (test code = 0728438559) 137 mg/dL 70-110 H Lab Interpretation (test code = Abnormal 07548-3) [facility] Metabolic Panel (NA, K, CL, CO2, GLUCOSE, BUN, CREATININE, CA)2020-09-29 10:29:40 Test Item Value Reference Range Interpretation Comments NA (test code = 138 mmol/L 135-145 0148196491) K (test code = 3.5 mmol/L 3.5-5.0 5424343910) CL (test code = 101 mmol/L 98-108 1851742467) CO2 TOTAL (test code = 31 mmol/L 23-31 8157391036) AGAP (test code = 6 2-16 8040982299) BUN (test code = 19 mg/dL 7-23 1375722467) GLUCOSE (test code = 133 mg/dL 70-110 H 7114090539) CREATININE (test code = 1.30 mg/dL 0.60-1.25 H 4752352541) CALCIUM (test code = 9.6 mg/dL 8.6-10.6 9646745586) eGFR (test code = 58.2 mL/min/1.73m2 8521883665) SUNIL (test code = SUNIL) Association of [...] tests). Lab Interpretation Abnormal (test code = 88203-0) [facility] with Sqwzebggpggh4293-16-10 10:18:20 Test Item Value Reference Range Interpretation [...] RDW-SD (test code = 43.2 fL 38.5-51.6 75877-6) RDW-CV (test code = 15.6 % 12.1-15.4 H 788-0) PLT (test code = 307 See_Comment [Automated 777-3) message] The sy stem which generated this result transmitted reference range : 150 - 328 10*3/ ?L. The reference r shashi was not used to interpret this result as normal/abnormal . MPV (test code = 9.5 fL 9.8-13.0 L 72010-5) NRBC/100 WBC (test 0.0 See_Comment [Automat ed code = 8810699150) message] The system which generated this result transmitted reference range : 0.0 - 10.0 /100 WBCs. The refer ence range was not u sed to interpret th is result as normal/abnormal . NRBC x10^3 (test code <0.01 See_Comment [Auto mated = 3656350339) message] The s [employer] which generated this result transmitted reference range : 10*3/?L. The reference range was not used to interpret this result as normal/abnormal . GRAN MAT (NEUT) % 73.5 % (test code = 770-8) IMM GRAN % (test code 0.60 % = 1423622346) LYMPH % (test code = 18.2 % 736-9) MONO % (test code = 6.0 % 5905-5) EOS % (test code = 1.3 % 713-8) BASO % (test code = 0.4 % 706-2) GRAN MAT x10^3(ANC) 7.91 10*3/uL 1.99-6.95 H (test code = 3607039598) IMM GRAN x10^3 (test 0.07 10*3/uL 0.00-0.06 H code = 7799636792) LYMPH x10^3 (test code 1.96 10*3/uL 1.09-3.23 = 731-0) MONO x10^3 (test code 0.65 10*3/uL 0.36-1.02 = 742-7) EOS x10^3 (test code = 0.14 10*3/uL 0.06-0.53 711-2) BASO x10^3 (test code 0.04 10*3/uL 0.01-0.09 = 704-7) Lab Interpretation Abnormal (test code = 91086-0) [facility] [id number] 08:42:16 Test Item Value Reference Range Interpretation Comments TROPONIN I (test 0.002 ng/mL See_Comment [Automated code = 2756560928) message] The system which generated this result [...] biotin. Lab Interpretation Normal (test code = 58169-3) [facility]woodGLYCOSYLATED HEMOGLOBIN (A1C)2020-09-28 21:05:41 Test Item Value Reference Range Interpretation Comments HGB A1C (test code = 7.7 % 4.0-6.0 H 4548-4) USNIL (test code = SUNIL) %A1C (NGSP) Interpretation (ADA)4.8-5.6 Normal or (Non-Diabetic Range)5.7-6.4 Increased Risk (Pre-Diabetic)>6.5 Diabetes Indicated Lab Interpretation Abnormal (test code = 09006-4) [facility] 1 Uxne0351-14-04 19:05:04[facility], Radiant Results Inft User - 09/28/2020 2:06 PM CDTHISTORY: Chest pain.TECHNIQUE: Portable AP erect view of the chest is obtained. Comparison madewith 08/25/2020 study.FINDINGS: No acute pneumonia.No pneumothorax or pleural effusion orpulmonary congestion detected. Mild cardiomegaly, bipolar permanentpacemaker inserted through left subclavian noted with electrode tips ingood position.CONCLUSIONS: No signs of acute cardiopulmonary disease.[facility]woodN-TERMINAL [id number] 19:03:08 Test Item Value Reference Range Interpretation Comments NT-proBNP (test code 40 pg/mL See_Comment [Autom ated = 6133592315) message] The system which generated this result transmitted reference range : <=125. The reference range was not used to interpret this result as normal/abnormal . SUNIL (test code = SUNIL) Biotin has been reported to cause a negative bias, interpret results relative to patient's use of biotin. Lab Interpretation Normal (test code = 91609-1) [facility]ID [facility]2020-09-28 19:02:12 Test Item Value Reference Range Interpretation Comments SARS-CoV-2 Rapid ID NOW Not Detected Not Detected (test code = 21620-9) SUNIL (test code = SUNIL) ID NOW COVID-19 Assay is an isothermal nucleic acid amplification test intended for the qualitative detection of nucleic acid from SARS-CoV-2 viral RNA in nasopharyngeal (CORRECTIONAL CASE RECORDS SUPERVISOR) specimens. It is used under Emergency [...] indicated. Lab Interpretation Normal (test code = 94398-8) [facility] KingwoodaPTT2021-04-08 19:01:31 Test Item Value Reference Range Interpretation [...] seconds. Lab Interpretation Abnormal (test code = 59427-5) [facility] KingwoodHepatic Function Panel (ALB, T.PRO, BILI T, BU/BC, ALT, AST, ALK PHOS)2020-09-28 18:54:28 Test Item Value Reference Range Interpretation Comments TOTAL BILI (test code = 2204354061) 0.6 mg/dL 0.1-1.1 BILI UNCON (test code = 5760088943) 0.3 mg/dL 0.1-1.1 BILI CONJ (test code = 8893267339) 0.0 mg/dL 0.0-0.3 T PROTEIN (test code = 0963706301) 7.5 g/dL 6.3-8.2 ALBUMIN (test code = 3675867368) 4.1 g/dL 3.5-5.0 ALK PHOS (test code = 5600491754) 141 U/L 34-122 H ALTv (test code = 1742-6) 41 U/L 5-50 AST(SGOT) (test code = 1132587530) 36 U/L 13-40 Lab Interpretation (test code = Abnormal 61798-9) [facility] KingwoodLipase Fvvhm5541-06-03 18:54:27 Test Item Value Reference Range Interpretation Comments LIPASE (test code = 5700327154) 45 U/L 0-220 Lab Interpretation (test code = Normal 48344-4) [facility] KingwoodPROCALCITONIN2021-03-06 09:50:00 Test Item Value Reference Range Interpretation Comments Procalcitonin (test 0.27 ng/mL <0.07 H code = 0227465996) SUNIL (test code = SUNIL) INTERPRETATION OF [...] lung abscess/empyema. For further information please refer to:[email or web address] Lab Interpretation Abnormal (test code = 63558-8) [facility]woodUS ABDOMEN [id number] 00:54:00 Impression: 1. Hepatosplenomegaly and hepatic steatosis.2. The pancreas is not adequately visualized.3. No acute abnormalities evident. RL: 460 End of Report Electronically signed by Perez Arthur 08/25/2020 6:[facility] - 08/25/2020 6:55 PM CSTOrdering Physician: HERBERT [...] No acute abnormalities evident.RL: 460End of Report [facility] CenterLIPID PANEL (34534)(TOTAL CHOLESTEROL, TRIGLYCERIDES, HDL)2020-08-25 22:53:00 Test Item Value Reference Range Interpretation Comments CHOL (test code = 165 mg/dL 120-200 0860238051) HDL (test code = 29 mg/dL >40 L 1187846696) HDLC RATIO (test code = 5.7 See_Comment H [Au tomated message] 9057990007) The system [employer] generated this result transmit vale reference range : <=5.0. The refe rence range was not u sed to interpret th is result as normal/abnormal . TRIG (test code = 233 mg/dL 30-170 H 1570997796) LDL CHOL (test code = 89 mg/dL See_Comment [Auto mated message] 69372-6) The system [employer] generated this result transmit vale reference range : <=160. The refe rence range was not u sed to interpret th is result as normal/abnormal . VLDL (test code = 47 mg/dL 5-60 [id number]) Lab Interpretation (test Abnormal code = 41928-7) [facility] / [id number] 12:32:00 Test Item Value Reference Range Interpretation Comments PROTIME PATIENT (test 19.6 See_Comment H [Auto mated message] code = 5964-2) The system Bugsn[employer] generated this result transmitted ref erence range: 12.0 - 1 4.7 Seconds. The reference range was not used to int erpret this result as normal/abnormal . INR (test code = 6301-6) 1.7 Nor mal INR <1.1; Warfarin Therap eutic range 2.0 to 3. 0 or 2.5 to 3.5, dep ending upon the indica tions. Lab Interpretation (test Abnormal code = 92836-4) [id number] 18:52:00 Test Item Value Reference Range Interpretation Comments MAGNESIUM (test code = 4105702568) 2.3 mg/dL 1.7-2.4 Lab Interpretation (test code = Normal 46969-8) [facility]wood[facility]UP[facility] ANTICOAGULANT [id number] 12:28:00 Test Item Value Reference Range Interpretation [...] : 1.05 Edited by: INFGenna Zhang on 07/06/18:656039 1510: SILICA C LOTTING previously repo rted as: 1.05 ARTERIAL THROMBOPHILIA [id number] 12:28:00 Test Item Value Reference Interpretation Comments Range PROTHROMBIN 3 NO MUTATION () PROTHROMBIN (F ACTOR II) UNTRANSLATED DETECTED 42274X>A MUTATI ON (test code = INTERPRETATION: This GU1JFZJ) individual is n egative (normal) for th e V04774Awjyovboy in the Prothrombin/Fac tor II gene. Increased risko f thrombophilia c an be caused by a variety of genetic andnon-genetic factors not screened for th is assay. Laboratory test ing supervised and results guerrero Knox, Ph.D., DABMG, H CLD, CGMB. MUTATION ANALYS IS:The Y80521A mutation [TN563421.1:g.2 1538G>A (c.*97G>A)] int he Prothrombin/Fac tor II gene is the second most commoninherited risk factor for thrombosis occuring inapproximately 2% of Caucasians. Pre sence of the mutation isasso ciated with an elevation of pr othrombin levels to about 30% above normal in heter ozygotes and 70% above olivia l inhomozygotes. The U04404R mutation is det ected bypolymerase ch ain [...] performancechar acteristics have been deter mined by [facility] Leonard lazo. It has not beencleared or approved by the FDA. Thi s assay has beenvalidated p ursuant to the CLIA regulation s and is used forclinical pur poses. Health care providers, please contact your marium [employer] ' genetic counselor or flex [phone]( [phone]) for assistance with interpretation of theseresults. P erformed by: SIMIallen alejandra/Kirstie [facility] FLEX [place] [address] ACTIVATED PROT C 3.09 RATIO 2.31-5.00 Ratios [...] supervised and results guerrero Cardoza , Ph.D., [facility]. MU TATION ANALYSIS:The Fa ctor v Leiden (R560Q) mutatio n [NM 481797.2: c.160 1G>A(p.R534Q)] in the Factor V gene [...] performancechar acteristics have been deter mined by [facility] Leonard lazo. It has not beencleared or approved by the FDA. Thi s assay has beenvalidated p ursuant to the CLIA regulation s and is used forclinical pur poses. Health care providers, please contact your [facility] [employer] ' genetic counselor or [facility] [phone]( [phone]) for assistance with interpretation of theseresults. P erformed by: SIMIti justyn/Kirstie [facility] F[place] [address] PROTEIN S FREE 56 % 68-126 L [...] in cluded into the APS criteri a. XDZY-0-CHVNG I 0.8 SMU 0.0-20.0 IGM (test code = GPIIGM) NTQT-4-URWUE I 0.0 SGU 0.0-20.0 IGG (test code = GPIIGG) ZFBK-2-VGEXH I 0.5 AHMET 0.0-20.0 The Antiphosp holipid [...] 0.000-0.747 H CRP (test code = CRPHS) [id number] 12:28:00 Test Item Value Reference Range Interpretation Comments FIBRINOGEN (test 640 MG/DL 160-450 H Excess admi nistration of code = FIB) anticoagulants and/or FibrinDegradati on Products may af fect Fibrinogen valu e. FACTOR [id number] 12:28:00 Test Item Value Reference Range Interpretation [...] vels are not clinicallysigni ficant. PROTEIN C [id number] 12:28:00 Test Item Value Reference Range Interpretation [...] levels of Prote in C. PROTEIN C [id number] 12:28:00 Test Item Value Reference Range Interpretation Comments PROTEIN C ANTIGENIC 71 % 70-140 Decrease d levels of (test code = PROTCAG) Protei n C Antigen may be found incongeni hetal deficiency, jerome atment with oral anticoagulants, liver disease, D.I.C. and post surgery. Perfor med by: [facility] [address] PROTEIN S [id number] 12:28:00 Test Item Value Reference Range Interpretation Comments PROTEIN S TOTAL 68 % 70-140 L Performed by : [facility] (test code = Diagnostics/Misael hols [facility] PROTSTOT) [place] [address] PROTEIN S FUNC 70 % 74-148 L [...] anincreased thrombotic risk . MTHF REDUCTASE (PCR) [id number] 12:28:00 Test Item Value Reference Range Interpretation Comments MTHF REDUCTASE (PCR) 677 TEST NOT PERFORMED (test code = MTHFR 677) LUPUS ANTICOAGULANT [id number] 11:48:00 Test Item Value Reference Range Interpretation [...] iously reported result : 1.05 Edited by: INF E on 07/06/18:718524 1510: SILICA C LOTTING previously repo rted as: 1.05 ARTERIAL THROMBOPHILIA [id number] 11:48:00 Test Item Value Reference Interpretation Comments Range PROTHROMBIN 3 NO MUTATION () PROTHROMBIN (F ACTOR II) UNTRANSLATED DETECTED 80005B>A MUTATI ON (test code = INTERPRETATION: This LE2CRKL) individual is n egative (normal) for th e P95415Iuzscjeeo in the Prothrombin/Fac tor II gene. Increased risko f thrombophilia c an be caused by a variety of genetic andnon-genetic factors not screened for th is assay. Laboratory test ing supervised and results guerrero Knox, Ph.D., DAB, H CLD, MB. MUTATION ANALYS IS:The S87579T mutation [OK295705.1:g.2 1538G>A (c.*97G>A)] int he Prothrombin/Fac tor II gene is the second most commoninherited risk factor for thrombosis occuring inapproximately 2% of Caucasians. Pre sence of the mutation isasso ciated with an elevation of pr othrombin levels to about 30% above normal in heter ozygotes and 70% above olivia l inhomozygotes. The J57426N mutation is det ected bypolymerase ch ain [...] performancechar acteristics have been deter mined by [facility] [facility] lazo. It has not beencleared or approved by the FDA. Thi s assay has beenvalidated p ursuant to the CLIA regulation s and is used forclinical pur poses. Health care providers, please contact your [facility] [employer] ' genetic counselor or [facility] [phone]( [phone]) for assistance with interpretation of theseresults. P erformed by: SIMIallen alejandra/Kirstie [facility] FLEX [place] [address] ACTIVATED PROT C 3.09 RATIO 2.31-5.00 Ratios [...] supervised and results guerrero Cardoza , Ph.D., [facility]. MU TATION ANALYSIS:The Fa ctor v Leiden (R560Q) mutatio n [NM 074049.2: c.160 1G>A(p.R534Q)] in the Factor V gene [...] performancechar acteristics have been deter mined by [facility] Beckham [place]. It has not beencleared or approved by the FDA. Thi s assay has beenvalidated p ursuant to the CLIA regulation s and is used forclinical pur poses. Health care providers, please contact your [facility] [employer] ' genetic counselor or [facility] [phone]( [phone]) for assistance with interpretation of theseresults. P erformed by: [facility] justyn/Kirstie [facility] [place] [address] PROTEIN S FREE 56 % 68-126 L [...] in cluded into the APS criteri a. TTBS-9-ISTAD I 0.8 SMU 0.0-20.0 IGM (test code = GPIIGM) JGSY-3-EQFLC I 0.0 SGU 0.0-20.0 IGG (test code = GPIIGG) DYWJ-3-EFPVW I 0.5 AHMET 0.0-20.0 The Antiphosp holipid [...] 0.000-0.747 H CRP (test code = CRPHS) [id number] 11:48:00 Test Item Value Reference Range Interpretation Comments FIBRINOGEN (test 640 MG/DL 160-450 H Excess admi nistration of code = FIB) anticoagulants and/or FibrinDegradati on Products may af fect Fibrinogen valu e. FACTOR [id number] 11:48:00 Test Item Value Reference Range Interpretation [...] vels are not clinicallysigni ficant. PROTEIN C [id number] 11:48:00 Test Item Value Reference Range Interpretation [...] levels of Prote in C. PROTEIN C [id number] 11:48:00 Test Item Value Reference Range Interpretation Comments PROTEIN C ANTIGENIC 71 % 70-140 Decrease d levels of (test code = PROTCAG) Protei n C Antigen may be found incongeni hetal deficiency, jerome atment with oral anticoagulants, liver disease, D.I.C. and post surgery. Perfor med by: [facility] [address] PROTEIN S [id number] 11:48:00 Test Item Value Reference Range Interpretation Comments PROTEIN S TOTAL 68 % 70-140 L Performed by : [facility] (test code = Diagnostics/Misael hols [facility] PROTSTOT) [place] [address] PROTEIN S FUNC 70 % 74-148 L [...] anincreased thrombotic risk . MTHF REDUCTASE (PCR) [id number] 11:48:00 Test Item Value Reference Range Interpretation Comments MTHF REDUCTASE (PCR) 677 (test code = MTHFR 677) LUPUS ANTICOAGULANT [id number] 11:04:00 Test Item Value Reference Range Interpretation [...] : 1.05 Edited by: INFC E on 07/06/18:323474 1510: SILICA C LOTTING previously repo rted as: 1.05 ARTERIAL THROMBOPHILIA [id number] 11:04:00 Test Item Value Reference Interpretation Comments Range PROTHROMBIN 3 NO MUTATION () PROTHROMBIN (F ACTOR II) UNTRANSLATED DETECTED 82752P>A MUTATI ON (test code = INTERPRETATION: This VQ9YRPK) individual is n egative (normal) for th e L70490Znzpxfich in the Prothrombin/Fac tor II gene. Increased risko f thrombophilia c an be caused by a variety of genetic andnon-genetic factors not screened for th is assay. Laboratory test ing supervised and results mon itored Peg Knox, Ph.D., DABMG, H CLD, CGMB. MUTATION ANALYS IS:The A68344P mutation [AP956769.1:g.2 1538G>A (c.*97G>A)] int he Prothrombin/Fac tor II gene is the second most commoninherited risk factor for thrombosis occuring inapproximately 2% of Caucasians. Pre sence of the mutation isasso ciated with an elevation of pr othrombin levels to about 30% above normal in heter ozygotes and 70% above olivia l inhomozygotes. The K85655Z mutation is det ected bypolymerase ch ain [...] performancechar acteristics have been deter mined by [facility] [employer] [facility] lazo. It has not beencleared or approved by the FDA. Thi s assay has beenvalidated p ursuant to the CLIA regulation s and is used forclinical pur poses. Health care providers, please contact your marium [employer] ' genetic counselor or flex [phone]( [phone]) for assistance with interpretation of theseresults. P erformed by: SIMIti justyn/Kirstie [facility] FLEX [place] [address] ACTIVATED PROT C 3.09 RATIO 2.31-5.00 Ratios [...] supervised and results guerrero Cardoza , Ph.D., [facility]. MU TATION ANALYSIS:The Fa ctor v Leiden (R560Q) mutatio n [NM 621240.2: c.160 1G>A(p.R534Q)] in the Factor V gene [...] performancechar acteristics have been deter mined by [employer] [facility] [facility] Leonard lazo. It has not beencleared or approved by the FDA. Thi s assay has beenvalidated p ursuant to the CLIA regulation s and is used forclinical pur poses. Health care providers, please contact your [facility] [employer] ' genetic counselor or [facility] [phone]( [phone]) for assistance with interpretation of theseresults. P erformed by: SIMIti justyn/Kisrtie [facility] FLEX [place] [address] PROTEIN S FREE 56 % 68-126 L [...] in cluded into the APS criteri a. EJBJ-4-EOQRQ I SMU 0.0-20.0 IGM (test code = GPIIGM) AJDA-7-DGUIR I SGU 0.0-20.0 IGG (test code = GPIIGG) QFXG-2-EIKSM I 0.5 AHMET 0.0-20.0 The Antiphosp holipid [...] 0.000-0.747 H CRP (test code = CRPHS) [id number] 11:04:00 Test Item Value Reference Range Interpretation Comments FIBRINOGEN (test 640 MG/DL 160-450 H Excess admi nistration of code = FIB) anticoagulants and/or FibrinDegradati on Products may af fect Fibrinogen valu e. FACTOR [id number] 11:04:00 Test Item Value Reference Range Interpretation [...] vels are not clinicallysigni ficant. PROTEIN C [id number] 11:04:00 Test Item Value Reference Range Interpretation [...] levels of Prote in C. PROTEIN C [id number] 11:04:00 Test Item Value Reference Range Interpretation Comments PROTEIN C ANTIGENIC 71 % 70-140 Decrease d levels of (test code = PROTCAG) Protei n C Antigen may be found incongeni hetal deficiency, jerome atment with oral anticoagulants, liver disease, D.I.C. and post surgery. Perfor med by: [facility] [address] PROTEIN S [id number] 11:04:00 Test Item Value Reference Range Interpretation Comments PROTEIN S TOTAL 68 % 70-140 L Performed by : [employer] (test code = Diagnostics/Misael hols [facility] PROTSTOT) [place] [address] PROTEIN S FUNC 70 % 74-148 L [...] anincreased thrombotic risk . MTHF REDUCTASE (PCR) [id number] 11:04:00 Test Item Value Reference Range Interpretation Comments MTHF REDUCTASE (PCR) 677 (test code = MTHFR 677) LUPUS ANTICOAGULANT [id number] 11:03:00 Test Item Value Reference Range Interpretation [...] : 1.05 Edited by: INFC E on 07/06/18:490551 1510: SILICA C LOTTING previously repo rted as: 1.05 ARTERIAL THROMBOPHILIA [id number] 11:03:00 Test Item Value Reference Interpretation Comments Range PROTHROMBIN 3 NO MUTATION () PROTHROMBIN (F ACTOR II) UNTRANSLATED DETECTED 82525G>A MUTATI ON (test code = INTERPRETATION: This QC8RQYV) individual is n egative (normal) for th e [id number] in the Prothrombin/Fac tor II gene. Increased risko f thrombophilia c an be caused by a variety of genetic andnon-genetic factors not screened for th is assay. Laboratory test ing supervised and results guerrero Knox, Ph.D., DABMG, H CLD, CGMB. MUTATION ANALYS IS:The W11438G mutation [TC665869.1:g.2 1538G>A (c.*97G>A)] int he Prothrombin/Fac tor II gene is the second most commoninherited risk factor for thrombosis occuring inapproximately 2% of Caucasians. Pre sence of the mutation isasso ciated with an elevation of pr othrombin levels to about 30% above normal in heter ozygotes and 70% above olivia l inhomozygotes. The A98744A mutation is det ected bypolymerase ch ain [...] performancechar acteristics have been deter mined by [facility]. It has not beencleared or approved by the FDA. Thi s assay has beenvalidated p ursuant to the CLIA regulation s and is used forclinical pur poses. Health care providers, please contact your [facility] [employer] ' genetic counselor or [facility] [phone]( [phone]) for assistance with interpretation of theseresults. P erformed by: [employer] Diagnosti justyn/Kirstie [facility] [place] [address] ACTIVATED PROT C 3.09 RATIO 2.31-5.00 Ratios [...] supervised and results guerrero Cardoza , Ph.D., [facility]. [facility] ANALYSIS:The Fa ctor v Leiden (R560Q) mutatio n [NM 245005.2: c.160 1G>A(p.R534Q)] in the Factor V gene [...] This test was developed and its analyti [facility] performancechar acteristics have been deter mined by [facility]. It has not beencleared or approved by the FDA. Thi s assay has beenvalidated p ursuant to the CLIA regulation s and is used forclinical pur poses. Health care providers, please contact your filipe causey [employer] ' genetic counselor or flex lind [phone]( [phone]) for assistance with interpretation of theseresults. P erformed by: [employer] Diagnosallen alejandra/Kirstie [facility] [place] [address] PROTEIN S FREE 56 % 68-126 L [...] in cluded into the APS criteri a. PWCI-8-UPFAE I SMU 0.0-20.0 IGM (test code = GPIIGM) VCHI-9-OJSFM I SGU 0.0-20.0 IGG (test code = GPIIGG) ELDV-6-QADGR I 0.5 AHMET 0.0-20.0 The Antiphosp holipid [...] 0.000-0.747 H CRP (test code = CRPHS) [id number] 11:03:00 Test Item Value Reference Range Interpretation Comments FIBRINOGEN (test 640 MG/DL 160-450 H Excess admi nistration of code = FIB) anticoagulants and/or FibrinDegradati on Products may af fect Fibrinogen valu e. FACTOR [id number] 11:03:00 Test Item Value Reference Range Interpretation [...] vels are not clinicallysigni ficant. PROTEIN C [id number] 11:03:00 Test Item Value Reference Range Interpretation [...] levels of Prote in C. PROTEIN C [id number] 11:03:00 Test Item Value Reference Range Interpretation Comments PROTEIN C ANTIGENIC 71 % 70-140 Decrease d levels of (test code = PROTCAG) Protei n C Antigen may be found incongeni hetal deficiency, jerome atment with oral anticoagulants, liver disease, D.I.C. and post surgery. Perfor med by: [facility] [address] PROTEIN S [id number] 11:03:00 Test Item Value Reference Range Interpretation [...] anincreased thrombotic risk . MTHF REDUCTASE (PCR) [id number] 11:03:00 Test Item Value Reference Range Interpretation Comments MTHF REDUCTASE (PCR) 677 (test code = MTHFR 677) LUPUS ANTICOAGULANT [id number] 21:21:00 Test Item Value Reference Range Interpretation [...] iously reported result : 1.05 Edited by: [facility]ENTER[facility]na Zhang on 07/06/18:544559 1510: SILICA C LOTTING previously repo rted as: 1.05 ARTERIAL THROMBOPHILIA [id number] 21:21:00 Test Item Value Reference Interpretation Comments Range PROTHROMBIN 3 UNTRANSLATED (test code = HV6WKFE) ACTIVATED PROT C 3.09 RATIO 2.31-5.00 Ratios [...] been included i nto the APS criteria. QQHX-0-BLYQJ I SMU 0.0-20.0 IGM (test code = GPIIGM) BVCG-1-LQSWV I SGU 0.0-20.0 IGG (test code = GPIIGG) QHLZ-4-DWWIL I 0.5 AHMET 0.0-20.0 The Antiphosp holipid [...] 0.000-0.747 H CRP (test code = CRPHS) [id number] 21:21:00 Test Item Value Reference Range Interpretation Comments FIBRINOGEN (test 640 MG/DL 160-450 H Excess admi nistration of code = FIB) anticoagulants and/or FibrinDegradati on Products may af fect Fibrinogen valu e. FACTOR [id number] 21:21:00 Test Item Value Reference Range Interpretation [...] vels are not clinicallysigni ficant. PROTEIN C [id number] 21:21:00 Test Item Value Reference Range Interpretation [...] levels of Prote in C. PROTEIN C [id number] 21:21:00 Test Item Value Reference Range Interpretation Comments PROTEIN C ANTIGENIC 71 % 70-140 Decrease d levels of (test code = PROTCAG) Protei n C Antigen may be found incongeni hetal deficiency, jerome atment with oral anticoagulants, liver disease, D.I.C. and post surgery. Perfor med by: [facility] justyn/[place] [address] PROTEIN S [id number] 21:21:00 Test Item Value Reference Range Interpretation [...] anincreased thrombotic risk . MTHF REDUCTASE (PCR) [id number] 21:21:00 Test Item Value Reference Range Interpretation Comments MTHF REDUCTASE (PCR) 677 (test code = MTHFR 677) ANTIPHOSPHATIDYL SERINE [id number] 16:18:00 Test Item Value Reference Range Interpretation Comments APS ABS IGG (test 2 GPS IgG 0-11 Performed At: [facility] code = APSIGG) [address] [id number] ra Lynne PHILLIP Ph:[phone] APS ABS IGM (test 5 MPS IgM 0-25 code = APSIGM) APS ABS IGA (test 1 APS IgA 0-20 code = APSIGA) LUPUS ANTICOAGULANT [id number] 14:43:00 Test Item Value Reference Range Interpretation [...] Sec PTT) Effective 07/21/2013 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 PDDV-0-XBNFG I SMU 0.0-20.0 IGM (test code = GPIIGM) CKUW-5-LXYAT I SGU 0.0-20.0 IGG (test code = GPIIGG) JYQI-9-QQTQR I 0.5 AHMET 0.0-20.0 The Antiphosp holipid [...] 0.000-0.747 H CRP (test code = CRPHS) [id number] 14:43:00 Test Item Value Reference Range Interpretation Comments FIBRINOGEN (test 640 MG/DL 160-450 H Excess admi nistration of code = FIB) anticoagulants and/or FibrinDegradati on Products may af fect Fibrinogen valu e. FACTOR [id number] 14:43:00 Test Item Value Reference Range Interpretation [...] vels are not clinicallysigni ficant. PROTEIN C [id number] 14:43:00 Test Item Value Reference Range Interpretation [...] levels of Prote in C. PROTEIN C [id number] 14:43:00 Test Item Value Reference Range Interpretation Comments PROTEIN C ANTIGENIC 71 % 70-140 Decrease d levels of (test code = PROTCAG) Protei n C Antigen may be found incongeni hetal deficiency, jerome atment with oral anticoagulants, liver disease, D.I.C. and post surgery. Perfor med by: [facility] [address] PROTEIN S [id number] 14:43:00 Test Item Value Reference Range Interpretation [...] anincreased thrombotic risk . 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 DWJM-2-REECQ I SMU <20 IGM (test code = GPIIGM) EUWZ-3-ZWSVE I UNITS <20 IGG (test code = GPIIGG) TCHP-7-EPWYA I 0.0-20.0 IGA (test code = GPIIGA) HOMOCYSTEINE TEST NOT 3.2-10.7 (test code = PERFORMED HOMOCY) umol/L HIGH SENSITIVITY mg/dl 0.000-0.747 H CRP (test code = CRPHS) [id number] 14:31:00 Test Item Value Reference Range Interpretation Comments FIBRINOGEN (test 640 MG/DL 160-450 H Excess admi nistration of code = FIB) anticoagulants and/or FibrinDegradati on Products may af fect Fibrinogen valu e. FACTOR [id number] 14:31:00 Test Item Value Reference Range Interpretation [...] vels are not clinicallysigni ficant. PROTEIN C [id number] 14:31:00 Test Item Value Reference Range Interpretation [...] levels of Prote in C. PROTEIN C [id number] 14:31:00 Test Item Value Reference Range Interpretation Comments PROTEIN C ANTIGENIC 71 % 70-140 Decrease d levels of (test code = PROTCAG) Protei n C Antigen may be found incongeni hetal deficiency, jerome atment with oral anticoagulants, liver disease, D.I.C. and post surgery. Perfor med by: [facility] [address] PROTEIN S [id number] 14:31:00 Test Item Value Reference Range Interpretation [...] anincreased thrombotic risk . MTHF REDUCTASE (PCR) [id number] 14:31:00 Test Item Value Reference Range Interpretation Comments MTHF REDUCTASE (PCR) 677 (test code = MTHFR 677) URINE AND [id number] 23:16:00 Test Item Value Reference Range Interpretation Comments UA Mucus (test code = UA Mucus) Few /LPF [facility] AND [id number] 23:16:00 Test Item Value Reference Range Interpretation Comments UA Leuk Est (test Negative (05/17/16 5:16 code = UA Leuk Est) PM) [facility] AND [id number] 23:16:00 Test Item Value Reference Range Interpretation Comments UA Bili (test code = Negative *NA*(05/17/16 UA Bili) 5:16 PM) [facility] AND [id number] 23:16:00 Test Item Value Reference Range Interpretation Comments UA Ketones (test code = UA Negative mg/dL Ketones) [facility] AND [id number] 23:16:00 Test Item Value Reference Range Interpretation Comments UA Nitrite (test code Negative (05/17/16 5:16 = UA Nitrite) PM) [facility] AND [id number] 23:16:00 Test Item Value Reference Range Interpretation Comments UA Urobilinogen (test code = UA 0.2 0.1-1.0 Urobilinogen) [facility] AND [id number] 23:16:00 Test Item Value Reference Range Interpretation Comments UA Turbidity (test code = Clear (05/17/16 5:16 UA Turbidity) PM) [facility] AND [id number] 23:16:00 Test Item Value Reference Range Interpretation Comments UA Blood (test code = Negative (05/17/16 5:16 UA Blood) PM) [facility] AND [id number] 23:16:00 Test Item Value Reference Range Interpretation Comments UA Glucose (test code = UA Negative mg/dL Glucose) [facility] AND [id number] 23:16:00 Test Item Value Reference Range Interpretation Comments UA Protein (test code = UA Negative mg/dL Protein) [facility] AND [id number] 23:16:00 Test Item Value Reference Range Interpretation Comments UA pH (test code = UA pH) 6.5 1 5.0-8.0 [facility] AND [id number] 23:16:00 Test Item Value Reference Range Interpretation Comments UA Spec Grav (test code = UA Spec 1.020 1 Grav) [facility] AND [id number] 23:16:00 Test Item Value Reference Range Interpretation Comments UA Color (test code = Yellow *NA*(05/17/16 UA Color) 5:16 PM) [facility] AND [id number] 23:16:00 Test Item Value Reference Range Interpretation Comments UA Sq Epi (test code = UA Sq Epi) Rare /LPF [facility] AND [id number] 23:16:00 Test Item Value Reference Range Interpretation Comments UA Bacteria (test code = UA Occasional /HPF Bacteria) [facility] [employer] AND [id number] 23:16:00 Test Item Value Reference Range Interpretation Comments UA RBC (test code = 0-2 /HPF See_Comment [Automa vale message] The UA RBC) system which ge nerated this result tra nsmitted reference range : <=2. The reference range was not used to interpr et this result as olivia l/abnormal. [facility] [employer] AND [id number] 23:16:00 Test Item Value Reference Range Interpretation Comments UA WBC (test code = UA WBC) 0-2 /HPF [facility] [employer] MarketannCARDIAC [id number] 22:01:00 Test Item Value Reference Range Interpretation Comments Total CK (test code = Total CK) 74 12-191 [facility] SystemsNetCARYokaAC [id number] 22:01:00 Test Item Value Reference Range Interpretation Comments CK MB (test code = CK MB) 0.8 0.5-3.6 [facility] [employer] [id number] 22:01:00 Test Item Value Reference Range Interpretation Comments Troponin-I (test code no gt See_Comment [Auto mated message] The = Troponin-I) system which g enerated this result transmit vale reference range : <=0.40. The reference r shashi was not used to interpr et this result as olivia l/abnormal. [facility] [employer] [id number] 22:01:00 Test Item Value Reference Range Interpretation Comments CK-MB INDEX (test 1.1 See_Comment [Automate d message] The code = CK-MB INDEX) system w [facility] generated this result transmit vale reference range : <=2.5. The reference range was not used to interpr et this result as olivia l/abnormal. [employer] [id number] 22:01:00 Test Item Value Reference Range Interpretation Comments eGFR (test code = eGFR) 79 [facility] [employer] [id number] 22:01:00 Test Item Value Reference Range Interpretation Comments Chloride Lvl (test code = Chloride Lvl) 106 95-109 [facility] [employer] [id number] 22:01:00 Test Item Value Reference Range Interpretation Comments CO2 (test code = CO2) 28 24-32 [facility] [employer] [id number] 22:01:00 Test Item Value Reference Range Interpretation Comments Calcium Lvl (test code = Calcium Lvl) 8.8 8.5-10.5 [facility]2016-11-25 22:01:00 Test Item Value Reference Range Interpretation Comments Bili Total (test code = Bili Total) 0.4 0.2-1.3 [facility]2016-11-25 22:01:00 Test Item Value Reference Range Interpretation Comments AGAP (test code = AGAP) 9.7 10.0-20.0 [facility]2016-11-25 22:01:00 Test Item Value Reference Range Interpretation Comments B/C Ratio (test code = B/C Ratio) 14 12-15 [facility]2016-11-25 22:01:00 Test Item Value Reference Range Interpretation Comments ASPARTATE TRANSAMINASE 14 See_Comment [Aut omated message] (test code = ASPARTATE The s ystem which TRANSAMINASE) generated this result transmitted ref erence range: <=37. Th e reference range was not used to interpr et this result as normal/abnormal . [facility]2016-11-25 22:01:00 Test Item Value Reference Range Interpretation Comments Total Protein (test code = Total 7.7 6.4-8.4 Protein) [facility]2016-11-25 22:01:00 Test Item Value Reference Range Interpretation Comments Globulin (test code = Globulin) 4.4 2.7-4.2 [facility]2016-11-25 22:01:00 Test Item Value Reference Range Interpretation Comments A/G Ratio (test code = A/G Ratio) 0.8 0.7-1.6 [facility]2016-11-25 22:01:00 Test Item Value Reference Range Interpretation Comments Glucose Lvl (test code = Glucose Lvl) 148 70-99 [facility]2016-11-25 22:01:00 Test Item Value Reference Range Interpretation Comments BUN (test code = BUN) 15 - [facility]2016-11-25 22:01:00 Test Item Value Reference Range Interpretation Comments Creatinine Lvl (test code = Creatinine 1.11 0.50-1.40 Lvl) [facility]2016-11-25 22:01:00 Test Item Value Reference Range Interpretation Comments Sodium Lvl (test code = Sodium Lvl) 140 135-145 [facility]2016-11-25 22:01:00 Test Item Value Reference Range Interpretation Comments Potassium Lvl (test code = Potassium 3.7 3.5-5.1 Lvl) [facility]2016-11-25 22:01:00 Test Item Value Reference Range Interpretation Comments Albumin Lvl (test code = Albumin Lvl) 3.3 3.5-5.0 [facility]2016-11-25 22:01:00 Test Item Value Reference Range Interpretation Comments Alk Phos (test code = Alk Phos) 129 39-136 [facility]2016-11-25 22:01:00 Test Item Value Reference Range Interpretation Comments ALANINE AMINOTRANSFERASE 30 See_Comment [A utomated message] (test code = ALANINE The sys tem which AMINOTRANSFERASE) generated this result transmitted ref erence range: <=65. Th e reference range was not used to int erpret this result as normal/abnormal . [facility]vineQcoupnxGVHOYAYDFW3965-28-98 22:01:00 Test Item Value Reference Range Interpretation Comments MPV (test code = MPV) 7.3 7.4-10.4 [facility] GrapevineTaksoblZJOWBGSPOK8098-40-31 22:01:00 Test Item Value Reference Range Interpretation Comments Platelet (test code = Platelet) 281 133-450 [facility] GrapevineWaelgznKCZZKLOIIJ3884-88-16 22:01:00 Test Item Value Reference Range Interpretation Comments RBC X 10x6 (test code = RBC X 10x6) 5.30 4.70-6.10 [facility] GrapevineKvlcqztEBCLCEANMR7070-12-17 22:01:00 Test Item Value Reference Range Interpretation Comments WBC X 10x3 (test code = WBC X 10x3) 10.5 3.7-10.4 [facility] GrapevineZvciikhALMPVSSHXI9192-33-04 22:01:00 Test Item Value Reference Range Interpretation Comments Hgb (test code = Hgb) 12.4 14.0-18.0 [facility] GrapevineOtmedihCCBPTSIPAG1583-62-73 22:01:00 Test Item Value Reference Range Interpretation Comments Hct (test code = Hct) 36.8 42.0-54.0 [facility] GrapevineInfurjvQHZDORKKYV1501-21-59 22:01:00 Test Item Value Reference Range Interpretation Comments MCV (test code = MCV) 69.4 80.0-94.0 [facility] GrapevineAjaddyrVABPIWFGUE1677-50-16 22:01:00 Test Item Value Reference Range Interpretation Comments MCH (test code = MCH) 23.4 pg 27.0-31.0 [facility] GrapevineCnymqeeHWIDUNKHGK1422-58-33 22:01:00 Test Item Value Reference Range Interpretation Comments MCHC (test code = MCHC) 33.7 32.0-36.0 [facility] GrapevineMzakabpUQUBXNXFCN6364-51-73 22:01:00 Test Item Value Reference Range Interpretation Comments RDW (test code = RDW) 17.1 11.5-14.5 [facility] GrapevineXrbebwkMABBHPPAQG4137-12-53 22:01:00 Test Item Value Reference Range Interpretation Comments aPTT (test code = aPTT) 35.4 s 22.9-35.8 [facility] GrapevineYtnlkcwFWFGZDGJIX3679-10-55 22:01:00 Test Item Value Reference Range Interpretation Comments PROTIME (test code = PROTIME) 13.1 s 12.0-14.7 [facility] GrapevineXgmptfsAKJTMXTFGT0636-28-16 22:01:00 Test Item Value Reference Range Interpretation Comments INR (test code = INR) 0.97 0.85-1.17 [facility] GrapevineYbtcjqyCKUDFFUFEL5478-39-28 22:01:00 Test Item Value Reference Range Interpretation Comments Eosinophils (test code = 1.1 See_Comment [A utomated message] The Eosinophils) system which ge nerated this result tra nsmitted reference range : <=4.0. The reference r shashi was not used to int erpret this result as normal/abnormal . [facility] GrapevineWrzmxdxZPJNGKZKHZ8366-97-82 22:01:00 Test Item Value Reference Range Interpretation Comments Monocytes (test code = Monocytes) 6.7 2.0-12.0 [facility] GrapevineNxbdjilFJLOVLVDTP0566-33-11 22:01:00 Test Item Value Reference Range Interpretation Comments Segs-Bands # (test code = Segs-Bands #) 7.2 1.5-8.1 [facility] GrapevineQnujatwIPCCEVEIIL5924-27-82 22:01:00 Test Item Value Reference Range Interpretation Comments Basophils (test code = 1.1 See_Comment [Aut omated message] The Basophils) system which ge nerated this result tra nsmitted reference range : <=1.0. The reference r shashi was not used to int erpret this result as normal/abnormal . [facility] GrapevineNlnbctoIDAYUFOJMM6298-88-12 22:01:00 Test Item Value Reference Range Interpretation Comments Lymphocytes # (test code = Lymphocytes 2.4 1.0-5.5 #) [facility] GrapevineGvxawauLRUYUOPZQU3345-55-00 22:01:00 Test Item Value Reference Range Interpretation Comments Monocytes # (test code 0.7 See_Comment [Aut omated message] The = Monocytes #) system which generated this result tra nsmitted reference range : <=0.8. The reference r shashi was not used to int erpret this result as normal/abnormal . [facility] GrapevineOtufnxuKPDVIZXILC7817-03-04 22:01:00 Test Item Value Reference Range Interpretation Comments Eosinophils # (test code 0.1 See_Comment [A utomated message] The = Eosinophils #) system whic h generated this result tra nsmitted reference range : <=0.5. The reference r shashi was not used to int erpret this result as normal/abnormal . [facility] GrapevineZpfalxnUQIBGCVCRT5107-41-64 22:01:00 Test Item Value Reference Range Interpretation Comments Microcyte (test code = 2+ *ABN*(05/17/16 Microcyte) 4:01 PM) [facility] GrapevineFjtaxrqFXWITOLRTC3305-87-64 22:01:00 Test Item Value Reference Range Interpretation Comments Basophils # (test code 0.1 See_Comment [Aut omated message] The = Basophils #) system which generated this result tra nsmitted reference range : <=0.2. The reference r shashi was not used to int erpret this result as normal/abnormal . [facility] GrapevineXkrsriqWQSTCGBUWM8518-81-75 22:01:00 Test Item Value Reference Range Interpretation Comments Lymphocytes (test code = Lymphocytes) 22.3 20.0-40.0 [facility] HealthQbvdmfbDPPVOOCFDY6790-52-86 22:01:00 Test Item Value Reference Range Interpretation Comments Segs (test code = Segs) 68.8 45.0-75.0 [facility] [id number] 15:25:00 Test Item Value Reference Range Interpretation Comments Troponin-I (test code no gt See_Comment [Auto mated message] The = Troponin-I) system which g enerated this result transmit vale reference range : <=0.40. The reference r shashi was not used to interpr et this result as olivia l/abnormal. [facility] GrapevineLwbaxxhDHUGSSGMMP0487-45-23 15:25:00 Test Item Value Reference Range Interpretation Comments aPTT (test code = aPTT) 50.1 s 22.9-35.8 [facility]EzititvIGPMPJIFZDSO0202-83-00 08:42:00 Test Item Value Reference Range Interpretation Comments AGAP (test code = AGAP) 10.8 10.0-20.0 [facility] HospitalPtqiahnGVSOSFSGVZBT5351-39-42 08:42:00 Test Item Value Reference Range Interpretation Comments CO2 (test code = CO2) 28 24-32 [facility] HospitalVepxvssRIYGBHQITJND0580-42-70 08:42:00 Test Item Value Reference Range Interpretation Comments Chloride Lvl (test code = Chloride Lvl) 105 95-109 [facility] HospitalNqtjdqeTOUKDBKCRRVB2753-16-18 08:42:00 Test Item Value Reference Range Interpretation Comments Calcium Lvl (test code = Calcium Lvl) 8.7 8.5-10.5 [facility] HospitalYzkqxldDJDXQLQCQSFD0277-83-20 08:42:00 Test Item Value Reference Range Interpretation Comments eGFR (test code = eGFR) 103 [facility] HospitalHhekpjeCWUBOLBGISZJ7971-40-83 08:42:00 Test Item Value Reference Range Interpretation Comments Glucose Lvl (test code = Glucose Lvl) 123 70-99 [facility] HospitalQyvkpkoTJQCVUJAAKLT0627-39-22 08:42:00 Test Item Value Reference Range Interpretation Comments Creatinine Lvl (test code = Creatinine 0.86 0.50-1.40 Lvl) [facility] HospitalBcunofmOTQHLKTOEIGL1152-27-26 08:42:00 Test Item Value Reference Range Interpretation Comments BUN (test code = BUN) 18 7-22 [facility] HospitalUbzwzfsYGHDSATIGWDQ9786-31-63 08:42:00 Test Item Value Reference Range Interpretation Comments Potassium Lvl (test code = Potassium 3.8 3.5-5.1 Lvl) [facility] HospitalTxdgmrvCETUBEVAFAPX7607-51-94 08:42:00 Test Item Value Reference Range Interpretation Comments Sodium Lvl (test code = Sodium Lvl) 140 135-145 [facility]vineHxtvlzjOGJMSBNQKV0244-49-44 08:42:00 Test Item Value Reference Range Interpretation Comments Microcyte (test code = 2+ *ABN*(05/06/16 Microcyte) 2:42 AM) [facility]rapevineDymftmsAQNBOIGDKG0404-10-93 08:42:00 Test Item Value Reference Range Interpretation Comments Eosinophils # (test code 0.2 See_Comment [A utomated message] The = Eosinophils #) system whic h generated this result tra nsmitted reference range : <=0.5. The reference r shashi was not used to int erpret this result as normal/abnormal . [facility]rapevineNjryqtiYXOGZWNCCO3353-51-51 08:42:00 Test Item Value Reference Range Interpretation Comments Monocytes # (test code 0.8 See_Comment [Aut omated message] The = Monocytes #) system which generated this result tra nsmitted reference range : <=0.8. The reference r shashi was not used to int erpret this result as normal/abnormal . [facility]rapevineDcplqtvKGPTUKHGGL7438-71-64 08:42:00 Test Item Value Reference Range Interpretation Comments Monocytes (test code = Monocytes) 7.9 2.0-12.0 [facility]rapevineQwwplwiRSFNUFUIFX9109-74-11 08:42:00 Test Item Value Reference Range Interpretation Comments Lymphocytes # (test code = Lymphocytes 2.5 1.0-5.5 #) [facility] GrapevineJhdlkwcCOTKZKLDET1760-30-67 08:42:00 Test Item Value Reference Range Interpretation Comments Segs-Bands # (test code = Segs-Bands #) 6.5 1.5-8.1 [facility] GrapevineIrtgsfrLBWMOMZREW5064-35-32 08:42:00 Test Item Value Reference Range Interpretation Comments Basophils (test code = 0.4 See_Comment [Aut omated message] The Basophils) system which ge nerated this result tra nsmitted reference range : <=1.0. The reference r shashi was not used to int erpret this result as normal/abnormal . [facility] GrapevineHizweusAVWEKFFSLA6394-25-21 08:42:00 Test Item Value Reference Range Interpretation Comments Eosinophils (test code = 1.7 See_Comment [A utomated message] The Eosinophils) system which ge nerated this result tra nsmitted reference range : <=4.0. The reference r shashi was not used to int erpret this result as normal/abnormal . [facility] GrapevineExjpqtgXMZUARYBNT1853-51-72 08:42:00 Test Item Value Reference Range Interpretation Comments Lymphocytes (test code = Lymphocytes) 24.8 20.0-40.0 [facility] GrapevineSszqlfbGYYIPUKQJJ6927-21-78 08:42:00 Test Item Value Reference Range Interpretation Comments Segs (test code = Segs) 65.2 45.0-75.0 [facility] GrapevineDgfztflEDYXORWUNC7321-06-28 08:42:00 Test Item Value Reference Range Interpretation Comments RBC X 10x6 (test code = RBC X 10x6) 5.11 4.70-6.10 [facility] GrapevineSeafuipZEBFLCGZPQ4394-60-96 08:42:00 Test Item Value Reference Range Interpretation Comments Hct (test code = Hct) 36.2 42.0-54.0 [facility] GrapevineXmgpikkLATCLZAWYV4152-62-78 08:42:00 Test Item Value Reference Range Interpretation Comments Hgb (test code = Hgb) 11.8 14.0-18.0 [facility] GrapevineOtauqayIAUWCZASNW5895-04-59 08:42:00 Test Item Value Reference Range Interpretation Comments Platelet (test code = Platelet) 272 133-450 [facility] GrapevineLvptkffEGNQISKJBP5165-11-04 08:42:00 Test Item Value Reference Range Interpretation Comments RDW (test code = RDW) 17.1 11.5-14.5 [facility]rapevineSeljqdsQPVRVMICKJ2750-45-03 08:42:00 Test Item Value Reference Range Interpretation Comments MPV (test code = MPV) 7.8 7.4-10.4 [facility] GrapevineQfqsdmyAKYWEXXJHA9429-89-05 08:42:00 Test Item Value Reference Range Interpretation Comments WBC X 10x3 (test code = WBC X 10x3) 9.9 3.7-10.4 [facility] GrapevineIwaccayMLEPMLMHFF0133-32-87 08:42:00 Test Item Value Reference Range Interpretation Comments MCHC (test code = MCHC) 32.5 32.0-36.0 [facility] GrapevineDitqorlGVFPGVYOYT9777-24-44 08:42:00 Test Item Value Reference Range Interpretation Comments MCH (test code = MCH) 23.0 pg 27.0-31.0 [facility] GrapevineGiaaxhrQJSRCTPAWL9478-50-50 08:42:00 Test Item Value Reference Range Interpretation Comments MCV (test code = MCV) 70.8 80.0-94.0 [facility] GrapevineIyberlxFKCUKGAXLE9502-73-71 08:20:00 Test Item Value Reference Range Interpretation Comments PROTIME (test code = PROTIME) 13.4 s 12.0-14.7 [facility] HealthOdbktbaWEIXOFYSXF2779-68-39 08:20:00 Test Item Value Reference Range Interpretation Comments INR (test code = INR) 1.00 0.85-1.17 [facility] GrapevineLgqgociGRJVJJIJXL6995-12-71 08:20:00 Test Item Value Reference Range Interpretation Comments aPTT (test code = aPTT) 49.1 s 22.9-35.8 [facility] AND [id number] 04:09:00 Test Item Value Reference Range Interpretation Comments UA Bacteria (test code = None Seen (05/05/16 UA Bacteria) 10:09 PM) [facility] AND [id number] 04:09:00 Test Item Value Reference Range Interpretation Comments UA Blood (test code = Negative (05/05/16 10:09 UA Blood) PM) [facility] AND [id number] 04:09:00 Test Item Value Reference Range Interpretation Comments UA RBC (test code = 0-2 /HPF See_Comment [Automa vale message] The UA RBC) system which ge nerated this result tra nsmitted reference range : <=2. The reference range was not used to interpr et this result as olivia l/abnormal. [facility] AND [id number] 04:09:00 Test Item Value Reference Range Interpretation Comments UA WBC (test code = UA None Seen (05/05/16 WBC) 10:09 PM) [facility] AND [id number] 04:09:00 Test Item Value Reference Range Interpretation Comments UA Sq Epi (test code = None Seen (05/05/16 UA Sq Epi) 10:09 PM) [facility] AND [id number] 04:09:00 Test Item Value Reference Range Interpretation Comments UA Leuk Est (test Negative (05/05/16 10:09 code = UA Leuk Est) PM) [facility] AND [id number] 04:09:00 Test Item Value Reference Range Interpretation Comments UA Urobilinogen (test code = UA 0.2 0.1-1.0 Urobilinogen) [facility] AND [id number] 04:09:00 Test Item Value Reference Range Interpretation Comments UA Nitrite (test code Negative (11/13/16 = UA Nitrite) 10:09 PM) [facility] AND [id number] 04:09:00 Test Item Value Reference Range Interpretation Comments UA Color (test code = Yellow *NA*(05/05/16 UA Color) 10:09 PM) [facility] AND [id number] 04:09:00 Test Item Value Reference Range Interpretation Comments UA Glucose (test code Negative (05/05/16 = UA Glucose) 10:09 PM) [facility] AND [id number] 04:09:00 Test Item Value Reference Range Interpretation Comments UA Bili (test code = Negative *NA*(05/05/16 UA Bili) 10:09 PM) [facility] AND [id number] 04:09:00 Test Item Value Reference Range Interpretation Comments UA Ketones (test code Negative *NA*(05/05/16 = UA Ketones) 10:09 PM) [facility] AND [id number] 04:09:00 Test Item Value Reference Range Interpretation Comments UA Protein (test code Negative (05/05/16 = UA Protein) 10:09 PM) [facility] AND [id number] 04:09:00 Test Item Value Reference Range Interpretation Comments UA pH (test code = UA pH) 6.0 1 5.0-8.0 [facility] AND [id number] 04:09:00 Test Item Value Reference Range Interpretation Comments UA Turbidity (test code = Clear (05/05/16 UA Turbidity) 10:09 PM) [facility] AND [id number] 04:09:00 Test Item Value Reference Range Interpretation Comments UA Spec Grav (test >=1.030 *ABN*(05/05/16 code = UA Spec Grav) 10:09 PM) [facility]annBACTERIAL - [id number] 04:06:00 Test Item Value Reference Range Interpretation Comments MRSA by PCR (test Negative (05/05/16 10:06 code = MRSA by PCR) PM) [facility] JjqcbdqIKZEALDJKN5914-77-82 03:38:00 Test Item Value Reference Range Interpretation Comments Basophils # (test code 0.1 See_Comment [Aut omated message] The = Basophils #) system which generated this result tra nsmitted reference range : <=0.2. The reference r shashi was not used to int erpret this result as normal/abnormal . [facility] GrapevineKxtedlgWYHPPSQBCR1351-04-99 03:38:00 Test Item Value Reference Range Interpretation Comments Microcyte (test code = 2+ *ABN*(05/05/16 Microcyte) 9:38 PM) [facility] GrapevineQuiesozITWMKMGQIZ6898-16-55 03:38:00 Test Item Value Reference Range Interpretation Comments Eosinophils (test code = 1.4 See_Comment [A utomated message] The Eosinophils) system which ge nerated this result tra nsmitted reference range : <=4.0. The reference r shashi was not used to int erpret this result as normal/abnormal . [facility]vineGfbumlvDKYOMAUFBE3816-26-68 03:38:00 Test Item Value Reference Range Interpretation Comments Basophils (test code = 0.7 See_Comment [Aut omated message] The Basophils) system which ge nerated this result tra nsmitted reference range : <=1.0. The reference r hsashi was not used to int erpret this result as normal/abnormal . [facility]vineHtqamnrTLKFDNOIRG7233-39-09 03:38:00 Test Item Value Reference Range Interpretation Comments Segs-Bands # (test code = Segs-Bands #) 7.1 1.5-8.1 [facility]rapevineShezkeaYFARNRMSEK9015-68-27 03:38:00 Test Item Value Reference Range Interpretation Comments Lymphocytes (test code = Lymphocytes) 24.8 20.0-40.0 [facility]rapevineLamzpljDPIDCYFBKS4576-38-25 03:38:00 Test Item Value Reference Range Interpretation Comments Monocytes (test code = Monocytes) 7.9 2.0-12.0 [facility]rapevineJmzgxzyRHRPHWLSYX5738-24-77 03:38:00 Test Item Value Reference Range Interpretation Comments Monocytes # (test code 0.9 See_Comment [Aut omated message] The = Monocytes #) system which generated this result tra nsmitted reference range : <=0.8. The reference r shashi was not used to int erpret this result as normal/abnormal . [facility]rapevineNrenqlvWKZRCRGRDA9670-45-55 03:38:00 Test Item Value Reference Range Interpretation Comments Eosinophils # (test code 0.2 See_Comment [A utomated message] The = Eosinophils #) system whic h generated this result tra nsmitted reference range : <=0.5. The reference r shashi was not used to int erpret this result as normal/abnormal . [facility]rapevineZmyevzfCTKONTUBKU3296-44-22 03:38:00 Test Item Value Reference Range Interpretation Comments Lymphocytes # (test code = Lymphocytes 2.7 1.0-5.5 #) [facility]rapevineCjitevtOYWNTENIIP6587-31-88 03:38:00 Test Item Value Reference Range Interpretation Comments Segs (test code = Segs) 65.2 45.0-75.0 [facility]rapevineUzzfzglTVKWABFGJP8408-42-03 03:38:00 Test Item Value Reference Range Interpretation Comments MCV (test code = MCV) 69.7 80.0-94.0 [facility]rapevinePdirtsxWBXOTBNJKH5301-46-08 03:38:00 Test Item Value Reference Range Interpretation Comments MCH (test code = MCH) 23.3 pg 27.0-31.0 [facility]rapevineHahmrqoQGJYQDYDMO1155-53-12 03:38:00 Test Item Value Reference Range Interpretation Comments Hgb (test code = Hgb) 12.2 14.0-18.0 [facility] GrapevineLxexefmIMGZXRCYAF3407-66-14 03:38:00 Test Item Value Reference Range Interpretation Comments Hct (test code = Hct) 36.5 42.0-54.0 [facility] GrapevineXjxvnkyABBZBLRYGD9206-23-61 03:38:00 Test Item Value Reference Range Interpretation Comments MCHC (test code = MCHC) 33.4 32.0-36.0 [facility]rapevineKzeipfiXAAJRUDWDI9695-33-39 03:38:00 Test Item Value Reference Range Interpretation Comments Platelet (test code = Platelet) 276 133-450 [facility] GrapevineJcwyqixTIPLPANGCU8848-57-25 03:38:00 Test Item Value Reference Range Interpretation Comments MPV (test code = MPV) 7.2 7.4-10.4 [facility] GrapevineFoouomrTTCVSIEYNM8160-15-77 03:38:00 Test Item Value Reference Range Interpretation Comments RDW (test code = RDW) 17.5 11.5-14.5 [facility]rapevineByoyqvzKNYVIDDKHN4747-83-34 03:38:00 Test Item Value Reference Range Interpretation Comments WBC X 10x3 (test code = WBC X 10x3) 11.0 3.7-10.4 [facility]rapevineGycjdsgGTUZAGPOUU1298-10-84 03:38:00 Test Item Value Reference Range Interpretation Comments RBC X 10x6 (test code = RBC X 10x6) 5.24 4.70-6.10 [facility] DallasLerikcmIUDKPPTEIW2033-59-76 01:53:00 Test Item Value Reference Range Interpretation Comments INR (test code = INR) 1.05 0.85-1.17 [facility]HmleuauXMEQWWNNVF8351-65-91 01:53:00 Test Item Value Reference Range Interpretation Comments PROTIME (test code = PROTIME) 13.9 s 12.0-14.7 [facility] CenterExywfpsIZHPJWPPOV2649-07-05 01:53:00 Test Item Value Reference Range Interpretation Comments aPTT (test code = aPTT) 35.3 s 22.9-35.8 [facility] [employer] WGXZLNP2701-17-68 23:11:00 Test Item Value Reference Range Interpretation Comments CK-MB INDEX (test 1.0 See_Comment [Automate d message] The code = CK-MB INDEX) system w [facility] generated this result transmit vale reference range : <=2.5. The reference range was not used to interpr et this result as olivia l/abnormal. [facility] [employer]2016-11-13 23:11:00 Test Item Value Reference Range Interpretation Comments CK MB (test code = CK MB) 0.8 0.5-3.6 [facility] [employer]2016-11-13 23:11:00 Test Item Value Reference Range Interpretation Comments Total CK (test code = Total CK) 80 12-191 [facility] DallasCTI Science2016-11-13 23:11:00 Test Item Value Reference Range Interpretation Comments Troponin-I (test code no gt See_Comment [Auto mated message] The = Troponin-I) system which g enerated this result transmit vale reference range : <=0.40. The reference r shashi was not used to interpr et this result as olivia l/abnormal. [employer] [id number] 23:11:00 Test Item Value Reference Range Interpretation Comments Alk Phos (test code = Alk Phos) 133 39-136 [facility] [employer] [id number] 23:11:00 Test Item Value Reference Range Interpretation Comments Glucose Lvl (test code = Glucose Lvl) 137 70-99 [facility] [employer] [id number] 23:11:00 Test Item Value Reference Range Interpretation Comments BUN (test code = BUN) 17 7-22 [facility]2016-11-13 23:11:00 Test Item Value Reference Range Interpretation Comments Creatinine Lvl (test code = Creatinine 1.01 0.50-1.40 Lvl) [facility]2016-11-13 23:11:00 Test Item Value Reference Range Interpretation Comments Sodium Lvl (test code = Sodium Lvl) 139 135-145 [facility]2016-11-13 23:11:00 Test Item Value Reference Range Interpretation Comments ALANINE AMINOTRANSFERASE 34 See_Comment [A utomated message] (test code = ALANINE The sys tem which AMINOTRANSFERASE) generated this result transmitted ref erence range: <=65. Th e reference range was not used to int erpret this result as normal/abnormal . [facility]2016-11-13 23:11:00 Test Item Value Reference Range Interpretation Comments Albumin Lvl (test code = Albumin Lvl) 3.3 3.5-5.0 [facility]2016-11-13 23:11:00 Test Item Value Reference Range Interpretation Comments Chloride Lvl (test code = Chloride Lvl) 105 95-109 [facility]2016-11-13 23:11:00 Test Item Value Reference Range Interpretation Comments eGFR (test code = eGFR) 88 [facility]2016-11-13 23:11:00 Test Item Value Reference Range Interpretation Comments Bili Total (test code = Bili Total) 0.4 0.2-1.3 [facility]2016-11-13 23:11:00 Test Item Value Reference Range Interpretation Comments Calcium Lvl (test code = Calcium Lvl) 8.6 8.5-10.5 [place] 179236-11-13 23:11:00 Test Item Value Reference Range Interpretation Comments Potassium Lvl (test code = Potassium 3.7 3.5-5.1 Lvl) [facility]2016-11-13 23:11:00 Test Item Value Reference Range Interpretation Comments CO2 (test code = CO2) 28 24-32 [facility]2016-11-13 23:11:00 Test Item Value Reference Range Interpretation Comments Total Protein (test code = Total 7.8 6.4-8.4 Protein) [place] 179236-11-13 23:11:00 Test Item Value Reference Range Interpretation Comments ASPARTATE TRANSAMINASE 16 See_Comment [Aut omated message] (test code = ASPARTATE The s ystem which TRANSAMINASE) generated this result transmitted ref erence range: <=37. Th e reference range was not used to interpr et this result as normal/abnormal . [facility]2016-11-13 23:11:00 Test Item Value Reference Range Interpretation Comments AGAP (test code = AGAP) 9.7 10.0-20.0 [place] 179236-11-13 23:11:00 Test Item Value Reference Range Interpretation Comments B/C Ratio (test code = B/C Ratio) 17 6-25 [place] 179236-11-13 23:11:00 Test Item Value Reference Range Interpretation Comments Globulin (test code = Globulin) 4.5 2.7-4.2 [facility]2016-11-13 23:11:00 Test Item Value Reference Range Interpretation Comments A/G Ratio (test code = A/G Ratio) 0.7 0.7-1.6 [place] 730246-11-13 23:11:00 Test Item Value Reference Range Interpretation Comments Monocytes # (test code 0.8 See_Comment [Aut omated message] The = Monocytes #) system which generated this result tra nsmitted reference range : <=0.8. The reference r shashi was not used to int erpret this result as normal/abnormal . [facility]rapevineGoogyrqAFETXSPTKR2516-61-93 23:11:00 Test Item Value Reference Range Interpretation Comments Eosinophils # (test code 0.1 See_Comment [A utomated message] The = Eosinophils #) system whic h generated this result tra nsmitted reference range : <=0.5. The reference r shashi was not used to int erpret this result as normal/abnormal . [facility]rapevineEapjnyaXAXPWQUPNJ3441-55-00 23:11:00 Test Item Value Reference Range Interpretation Comments Basophils # (test code 0.1 See_Comment [Aut omated message] The = Basophils #) system which generated this result tra nsmitted reference range : <=0.2. The reference r shashi was not used to int erpret this result as normal/abnormal . [facility]rapevineAsommwzKGLEBMIELK7512-15-70 23:11:00 Test Item Value Reference Range Interpretation Comments Microcyte (test code = 2+ *ABN*(05/05/16 Microcyte) 5:11 PM) [facility] GrapevineZtpoxxwWWLYICONIW8732-52-17 23:11:00 Test Item Value Reference Range Interpretation Comments Monocytes (test code = Monocytes) 7.5 2.0-12.0 [facility] GrapevineIgoikigZUWMRTPRNM9288-56-56 23:11:00 Test Item Value Reference Range Interpretation Comments Eosinophils (test code = 1.1 See_Comment [A utomated message] The Eosinophils) system which ge nerated this result tra nsmitted reference range : <=4.0. The reference r shashi was not used to int erpret this result as normal/abnormal . [facility] GrapevineIevlidsBJGLROEXTU8690-58-99 23:11:00 Test Item Value Reference Range Interpretation Comments Basophils (test code = 0.7 See_Comment [Aut omated message] The Basophils) system which ge nerated this result tra nsmitted reference range : <=1.0. The reference r shashi was not used to int erpret this result as normal/abnormal . [facility] GrapevineLmolynuDEKSAMSLDS4017-75-48 23:11:00 Test Item Value Reference Range Interpretation Comments Segs-Bands # (test code = Segs-Bands #) 7.5 1.5-8.1 [facility] GrapevineDipbsiiCQZTNBSEFE4355-20-90 23:11:00 Test Item Value Reference Range Interpretation Comments Lymphocytes # (test code = Lymphocytes 2.1 1.0-5.5 #) [facility] GrapevineFrdwpiwGIEDJHDKUT8614-11-69 23:11:00 Test Item Value Reference Range Interpretation Comments Lymphocytes (test code = Lymphocytes) 19.9 20.0-40.0 [facility] GrapevineGwiwhcuYSURLITOVA7984-32-03 23:11:00 Test Item Value Reference Range Interpretation Comments Segs (test code = Segs) 70.8 45.0-75.0 [facility]rapevineEnxfqfoXWUBZFOXNP5536-48-53 23:11:00 Test Item Value Reference Range Interpretation Comments Platelet (test code = Platelet) 306 133-450 [facility] GrapevineLoyjageYHHHOFNNRE3632-38-78 23:11:00 Test Item Value Reference Range Interpretation Comments MCHC (test code = MCHC) 33.6 32.0-36.0 [facility] GrapevineSrlcucsJPYRBIYORG1400-20-30 23:11:00 Test Item Value Reference Range Interpretation Comments MPV (test code = MPV) 7.3 7.4-10.4 [facility] GrapevineAtlamevFMBYTYVCYJ0866-29-08 23:11:00 Test Item Value Reference Range Interpretation Comments RDW (test code = RDW) 16.9 11.5-14.5 [facility] GrapevineCaflxwrSMPSIICGPA0432-11-38 23:11:00 Test Item Value Reference Range Interpretation Comments MCV (test code = MCV) 69.5 80.0-94.0 [facility] GrapevineItxvegkXOVMESSNEA4532-64-66 23:11:00 Test Item Value Reference Range Interpretation Comments MCH (test code = MCH) 23.4 pg 27.0-31.0 [facility] GrapevineIkqfjlxUTPQWAIJPQ6195-67-57 23:11:00 Test Item Value Reference Range Interpretation Comments Hct (test code = Hct) 37.4 42.0-54.0 [facility] GrapevineXmztzgtBRNMAQDIQF8219-55-79 23:11:00 Test Item Value Reference Range Interpretation Comments Hgb (test code = Hgb) 12.6 14.0-18.0 [facility] GrapevineNojkxwiHWGVKAYHNB8927-27-90 23:11:00 Test Item Value Reference Range Interpretation Comments WBC X 10x3 (test code = WBC X 10x3) 10.6 3.7-10.4 [facility] GrapevineYxqwcnfOKKBXOPRWL2678-19-20 23:11:00 Test Item Value Reference Range Interpretation Comments RBC X 10x6 (test code = RBC X 10x6) 5.39 4.70-6.10 [facility]2016-11-03 23:17:00 Test Item Value Reference Range Interpretation Comments Globulin (test code = Globulin) 4.2 2.7-4.2 [facility]2016-11-03 23:17:00 Test Item Value Reference Range Interpretation Comments B/C Ratio (test code = B/C Ratio) 19 6-25 [facility]2016-11-03 23:17:00 Test Item Value Reference Range Interpretation Comments AGAP (test code = AGAP) 9.9 10.0-20.0 [facility]2016-11-03 23:17:00 Test Item Value Reference Range Interpretation Comments A/G Ratio (test code = A/G Ratio) 0.8 0.7-1.6 [facility]2016-11-03 23:17:00 Test Item Value Reference Range Interpretation Comments eGFR (test code = eGFR) 100 [facility]2016-11-03 23:17:00 Test Item Value Reference Range Interpretation Comments Alk Phos (test code = Alk Phos) 128 39-136 [facility]2016-11-03 23:17:00 Test Item Value Reference Range Interpretation Comments Albumin Lvl (test code = Albumin Lvl) 3.4 3.5-5.0 [facility]2016-11-03 23:17:00 Test Item Value Reference Range Interpretation Comments ALANINE AMINOTRANSFERASE 30 See_Comment [A utomated message] (test code = ALANINE The sys tem which AMINOTRANSFERASE) generated this result transmitted ref erence range: <=65. Th e reference range was not used to int erpret this result as normal/abnormal . [place] 179236-11-03 23:17:00 Test Item Value Reference Range Interpretation Comments Total Protein (test code = Total 7.6 6.4-8.4 Protein) [facility]2016-11-03 23:17:00 Test Item Value Reference Range Interpretation Comments Bili Total (test code = Bili Total) 0.3 0.2-1.3 [facility]2016-11-03 23:17:00 Test Item Value Reference Range Interpretation Comments ASPARTATE TRANSAMINASE 14 See_Comment [Aut omated message] (test code = ASPARTATE The s ystem which TRANSAMINASE) generated this result transmitted ref erence range: <=37. Th e reference range was not used to interpr et this result as normal/abnormal . [facility]2016-11-03 23:17:00 Test Item Value Reference Range Interpretation Comments CO2 (test code = CO2) 26 24-32 [facility]2016-11-03 23:17:00 Test Item Value Reference Range Interpretation Comments Calcium Lvl (test code = Calcium Lvl) 8.7 8.5-10.5 [facility]2016-11-03 23:17:00 Test Item Value Reference Range Interpretation Comments Chloride Lvl (test code = Chloride Lvl) 104 95-109 [facility]2016-11-03 23:17:00 Test Item Value Reference Range Interpretation Comments Potassium Lvl (test code = Potassium 3.9 3.5-5.1 Lvl) [facility]2016-11-03 23:17:00 Test Item Value Reference Range Interpretation Comments Glucose Lvl (test code = Glucose Lvl) 221 70-99 [facility]2016-11-03 23:17:00 Test Item Value Reference Range Interpretation Comments Sodium Lvl (test code = Sodium Lvl) 136 135-145 [facility]2016-11-03 23:17:00 Test Item Value Reference Range Interpretation Comments Creatinine Lvl (test code = Creatinine 0.91 0.50-1.40 Lvl) [facility]2016-11-03 23:17:00 Test Item Value Reference Range Interpretation Comments BUN (test code = BUN) 17 7-22 [facility] GrapevineRjsjnzjTYTPXTCRVN2529-40-09 23:17:00 Test Item Value Reference Range Interpretation Comments RBC X 10x6 (test code = RBC X 10x6) 5.40 4.70-6.10 [facility] GrapevineKoebyvhMULILIDMNC0589-55-95 23:17:00 Test Item Value Reference Range Interpretation Comments WBC X 10x3 (test code = WBC X 10x3) 10.3 3.7-10.4 [facility] GrapevineFsnfolxAPJEPZXYIM3205-18-86 23:17:00 Test Item Value Reference Range Interpretation Comments Hgb (test code = Hgb) 12.9 14.0-18.0 [facility] GrapevineVqyiykxVXKZCLKPXO5300-67-64 23:17:00 Test Item Value Reference Range Interpretation Comments MPV (test code = MPV) 7.2 7.4-10.4 [facility] GrapevineIxgycryXDACLTNUTL8427-44-49 23:17:00 Test Item Value Reference Range Interpretation Comments RDW (test code = RDW) 16.8 11.5-14.5 [facility] GrapevinePaygkyzKTEZJUWRXW3787-10-77 23:17:00 Test Item Value Reference Range Interpretation Comments Platelet (test code = Platelet) 313 133-450 [facility] GrapevineOsjoppjOCWZQSHGWT2246-99-54 23:17:00 Test Item Value Reference Range Interpretation Comments MCH (test code = MCH) 23.8 pg 27.0-31.0 [facility] GrapevineZqllyxwNVQMGKIOAQ7008-45-49 23:17:00 Test Item Value Reference Range Interpretation Comments MCHC (test code = MCHC) 34.0 32.0-36.0 [facility] GrapevineDfbupkdIUIEXTSNNF4338-95-21 23:17:00 Test Item Value Reference Range Interpretation Comments Hct (test code = Hct) 37.9 42.0-54.0 [facility] GrapevineXzcicnkKDZWYKDWFO8405-82-61 23:17:00 Test Item Value Reference Range Interpretation Comments MCV (test code = MCV) 70.1 80.0-94.0 [facility] GrapevineCfxfspdWCVSIAMMSB8459-88-51 23:17:00 Test Item Value Reference Range Interpretation Comments Lymphocytes # (test code = Lymphocytes 2.3 1.0-5.5 #) [facility] GrapevineNvyurljDQDEWSSZUE4843-79-45 23:17:00 Test Item Value Reference Range Interpretation Comments Eosinophils # (test code 0.1 See_Comment [A utomated message] The = Eosinophils #) system whic h generated this result tra nsmitted reference range : <=0.5. The reference r shashi was not used to int erpret this result as normal/abnormal . [facility] GrapevineOtbyxujVGVQEJVMVO4178-80-85 23:17:00 Test Item Value Reference Range Interpretation Comments Monocytes # (test code 0.6 See_Comment [Aut omated message] The = Monocytes #) system which generated this result tra nsmitted reference range : <=0.8. The reference r shashi was not used to int erpret this result as normal/abnormal . [facility] GrapevinePjpkkpkUTFCFVYAJT3335-53-27 23:17:00 Test Item Value Reference Range Interpretation Comments Basophils # (test code 0.1 See_Comment [Aut omated message] The = Basophils #) system which generated this result tra nsmitted reference range : <=0.2. The reference r shashi was not used to int erpret this result as normal/abnormal . [facility] GrapevineGvfmtmpFHQGDIWJQE1609-39-07 23:17:00 Test Item Value Reference Range Interpretation Comments Microcyte (test code = 2+ *ABN*(04/25/16 Microcyte) 6:17 PM) [facility] GrapevineEehccbfWEDJRCEJTV7024-03-49 23:17:00 Test Item Value Reference Range Interpretation Comments Segs (test code = Segs) 69.2 45.0-75.0 [facility] GrapevineKvtmjhmSUCJGQBMEL7729-85-85 23:17:00 Test Item Value Reference Range Interpretation Comments Segs-Bands # (test code = Segs-Bands #) 7.1 1.5-8.1 [facility] GrapevineOghktbjYGGTVJONGB3100-38-36 23:17:00 Test Item Value Reference Range Interpretation Comments Monocytes (test code = Monocytes) 6.1 2.0-12.0 [facility] GrapevineSknyrrhVIEFDATJCF3214-97-97 23:17:00 Test Item Value Reference Range Interpretation Comments Basophils (test code = 1.1 See_Comment [Aut omated message] The Basophils) system which ge nerated this result tra nsmitted reference range : <=1.0. The reference r shashi was not used to int erpret this result as normal/abnormal . [facility] GrapevineIylsewnDWADJJIBYB4388-55-92 23:17:00 Test Item Value Reference Range Interpretation Comments Eosinophils (test code = 1.1 See_Comment [A utomated message] The Eosinophils) system which ge nerated this result tra nsmitted reference range : <=4.0. The reference r shashi was not used to int erpret this result as normal/abnormal . [facility] GrapevineRnqyybqUPGZAYERBR4714-27-29 23:17:00 Test Item Value Reference Range Interpretation Comments Lymphocytes (test code = Lymphocytes) 22.5 20.0-40.0 [facility] AND [id number] 23:17:00 Test Item Value Reference Range Interpretation Comments UA WBC (test code = UA WBC) 0-2 /HPF [facility] AND [id number] 23:17:00 Test Item Value Reference Range Interpretation Comments UA RBC (test code = 0-2 /HPF See_Comment [Automa vale message] The UA RBC) system which ge nerated this result tra nsmitted reference range : <=2. The reference range was not used to interpr et this result as olivia l/abnormal. [facility] AND [id number] 23:17:00 Test Item Value Reference Range Interpretation Comments UA Bacteria (test code = UA Occasional /HPF Bacteria) [facility] AND [id number] 23:17:00 Test Item Value Reference Range Interpretation Comments UA Leuk Est (test Negative (04/25/16 6:17 code = UA Leuk Est) PM) [facility] AND [id number] 23:17:00 Test Item Value Reference Range Interpretation Comments UA Sq Epi (test code = UA Sq Occasional /LPF Epi) [facility] AND [id number] 23:17:00 Test Item Value Reference Range Interpretation Comments UA pH (test code = UA pH) 6.0 1 5.0-8.0 [facility] [id number] 23:17:00 Test Item Value Reference Range Interpretation Comments UA Protein (test code Negative (04/25/16 6:17 = UA Protein) PM) [facility] [id number] 23:17:00 Test Item Value Reference Range Interpretation Comments UA Glucose (test code = UA Glucose) 250 mg/dL [facility] [id number] 23:17:00 Test Item Value Reference Range Interpretation Comments UA Ketones (test code Negative *NA*(04/25/16 = UA Ketones) 6:17 PM) [facility] [id number] 23:17:00 Test Item Value Reference Range Interpretation Comments UA Bili (test code = Negative *NA*(04/25/16 UA Bili) 6:17 PM) [facility] [id number] 23:17:00 Test Item Value Reference Range Interpretation Comments UA Blood (test code = Negative (04/25/16 6:17 UA Blood) PM) [facility] [id number] 23:17:00 Test Item Value Reference Range Interpretation Comments UA Urobilinogen (test code = UA 0.2 0.1-1.0 Urobilinogen) [facility] [id number] 23:17:00 Test Item Value Reference Range Interpretation Comments UA Nitrite (test code Negative (04/25/16 6:17 = UA Nitrite) PM) [facility] [id number] 23:17:00 Test Item Value Reference Range Interpretation Comments UA Color (test code = Yellow *NA*(04/25/16 UA Color) 6:17 PM) [facility] [id number] 23:17:00 Test Item Value Reference Range Interpretation Comments UA Turbidity (test code = Clear (04/25/16 6:17 UA Turbidity) PM) [facility] [id number] 23:17:00 Test Item Value Reference Range Interpretation Comments UA Spec Grav (test code = UA Spec 1.020 1 Grav) [facility] [id number] 13:55:00 Test Item Value Reference Range Interpretation Comments Troponin-I (test code no gt See_Comment [Auto mated message] The = Troponin-I) system which g enerated this result transmit vale reference range : <=0.40. The reference r shashi was not used to interpr et this result as olivia l/abnormal. [facility]2016-09-13 13:55:00 Test Item Value Reference Range Interpretation Comments CK MB (test code = CK MB) 0.8 0.5-3.6 [facility]2016-09-13 13:55:00 Test Item Value Reference Range Interpretation Comments Total CK (test code = Total CK) 60 191 [facility]2016-09-13 13:55:00 Test Item Value Reference Range Interpretation Comments CK-MB INDEX (test 1.3 See_Comment [Automate d message] The code = CK-MB INDEX) system w [employer] generated this result transmit vale reference range : <=2.5. The reference range was not used to interpr et this result as olivia l/abnormal. [facility]2016-09-13 12:30:00 Test Item Value Reference Range Interpretation Comments Troponin-I (test code no gt See_Comment [Auto mated message] The = Troponin-I) system which g enerated this result transmit vale reference range : <=0.40. The reference r shashi was not used to interpr et this result as olivia l/abnormal. [facility]2016-09-13 12:30:00 Test Item Value Reference Range Interpretation Comments Total CK (test code = Total CK) 66 -191 [facility]2016-09-13 12:30:00 Test Item Value Reference Range Interpretation Comments CK MB (test code = CK MB) 0.6 0.5-3.6 [facility]2016-09-13 12:30:00 Test Item Value Reference Range Interpretation Comments CK-MB INDEX (test 0.9 See_Comment [Automate d message] The code = CK-MB INDEX) system w [employer] generated this result transmit vale reference range : <=2.5. The reference range was not used to interpr et this result as olivia l/abnormal. [facility]2016-09-13 12:30:00 Test Item Value Reference Range Interpretation Comments eGFR (test code = eGFR) 103 [facility]2016-09-13 12:30:00 Test Item Value Reference Range Interpretation Comments AGAP (test code = AGAP) 12.0 10.0-20.0 [facility]2016-09-13 12:30:00 Test Item Value Reference Range Interpretation Comments Globulin (test code = Globulin) 4.4 2.7-4.2 [facility]2016-09-13 12:30:00 Test Item Value Reference Range Interpretation Comments B/C Ratio (test code = B/C Ratio) 14 6-25 [facility]2016-09-13 12:30:00 Test Item Value Reference Range Interpretation Comments A/G Ratio (test code = A/G Ratio) 0.8 0.7-1.6 [facility]2016-09-13 12:30:00 Test Item Value Reference Range Interpretation Comments Calcium Lvl (test code = Calcium Lvl) 8.8 8.5-10.5 [facility]2016-09-13 12:30:00 Test Item Value Reference Range Interpretation Comments Bili Total (test code = Bili Total) 0.6 0.2-1.3 [facility]2016-09-13 12:30:00 Test Item Value Reference Range Interpretation Comments Total Protein (test code = Total 7.8 6.4-8.4 Protein) [facility]2016-09-13 12:30:00 Test Item Value Reference Range Interpretation Comments ASPARTATE TRANSAMINASE 16 See_Comment [Aut omated message] (test code = ASPARTATE The s ystem which TRANSAMINASE) generated this result transmitted ref erence range: <=37. Th e reference range was not used to interpr et this result as normal/abnormal . [facility]2016-09-13 12:30:00 Test Item Value Reference Range Interpretation Comments Alk Phos (test code = Alk Phos) 128 39-136 [facility]2016-09-13 12:30:00 Test Item Value Reference Range Interpretation Comments Glucose Lvl (test code = Glucose Lvl) 97 70-99 [facility]2016-09-13 12:30:00 Test Item Value Reference Range Interpretation Comments Creatinine Lvl (test code = Creatinine 0.88 0.50-1.40 Lvl) [facility]2016-09-13 12:30:00 Test Item Value Reference Range Interpretation Comments BUN (test code = BUN) 12 7-22 [facility]2016-09-13 12:30:00 Test Item Value Reference Range Interpretation Comments Sodium Lvl (test code = Sodium Lvl) 138 135-145 [facility]2016-09-13 12:30:00 Test Item Value Reference Range Interpretation Comments ALANINE AMINOTRANSFERASE 32 See_Comment [A utomated message] (test code = ALANINE The sys tem which AMINOTRANSFERASE) generated this result transmitted ref erence range: <=65. Th e reference range was not used to int erpret this result as normal/abnormal . [facility]2016-09-13 12:30:00 Test Item Value Reference Range Interpretation Comments Albumin Lvl (test code = Albumin Lvl) 3.4 3.5-5.0 [facility]2016-09-13 12:30:00 Test Item Value Reference Range Interpretation Comments Potassium Lvl (test code = Potassium 4.0 3.5-5.1 Lvl) [facility]2016-09-13 12:30:00 Test Item Value Reference Range Interpretation Comments Chloride Lvl (test code = Chloride Lvl) 105 95-109 [facility]2016-09-13 12:30:00 Test Item Value Reference Range Interpretation Comments CO2 (test code = CO2) 25 24-32 [facility]vineGnptmalFDVXQIZKAZ8676-15-03 12:30:00 Test Item Value Reference Range Interpretation Comments Platelet (test code = Platelet) 294 133-450 [facility]rapevineXscvsegOBNHGAUDLJ4397-29-36 12:30:00 Test Item Value Reference Range Interpretation Comments MPV (test code = MPV) 7.4 7.4-10.4 [facility]rapevineWqljjxfWKOYGFCJZJ4205-77-91 12:30:00 Test Item Value Reference Range Interpretation Comments WBC X 10x3 (test code = WBC X 10x3) 10.0 3.7-10.4 [facility]rapevineDaqutruRXSXDFKRCE9396-68-80 12:30:00 Test Item Value Reference Range Interpretation Comments RDW (test code = RDW) 16.6 11.5-14.5 [facility] GrapevineRjaptayDLWAFGOIQZ2696-46-14 12:30:00 Test Item Value Reference Range Interpretation Comments MCH (test code = MCH) 24.1 pg 27.0-31.0 [facility]rapevineWpoedjdUABPYBUILZ4078-29-01 12:30:00 Test Item Value Reference Range Interpretation Comments MCHC (test code = MCHC) 33.4 32.0-36.0 [facility]rapevineExshiemMPGZSQOVBQ1806-74-47 12:30:00 Test Item Value Reference Range Interpretation Comments MCV (test code = MCV) 72.2 80.0-94.0 [facility] GrapevineFafknqvEAWJCSJGAP8098-83-92 12:30:00 Test Item Value Reference Range Interpretation Comments Hct (test code = Hct) 38.1 42.0-54.0 [facility] GrapevineXanxdwcZXMQVOIBRX4010-61-43 12:30:00 Test Item Value Reference Range Interpretation Comments RBC X 10x6 (test code = RBC X 10x6) 5.28 4.70-6.10 [facility]rapevinePignehaQXDZXQJCFT9852-54-92 12:30:00 Test Item Value Reference Range Interpretation Comments Hgb (test code = Hgb) 12.7 14.0-18.0 [facility]rapevineDggylwrNMQZCTWHXQ8814-00-05 12:30:00 Test Item Value Reference Range Interpretation Comments Microcyte (test code = 1+ *ABN*(03/05/16 Microcyte) 7:30 AM) [facility]rapevineQdxnerwMRDNVGJJNM9324-08-51 12:30:00 Test Item Value Reference Range Interpretation Comments Basophils # (test code 0.1 See_Comment [Aut omated message] The = Basophils #) system which generated this result tra nsmitted reference range : <=0.2. The reference r shashi was not used to int erpret this result as normal/abnormal . [facility] GrapevineCoatzarEEIBRXQZPE7696-67-09 12:30:00 Test Item Value Reference Range Interpretation Comments Monocytes # (test code 0.7 See_Comment [Aut omated message] The = Monocytes #) system which generated this result tra nsmitted reference range : <=0.8. The reference r shashi was not used to int erpret this result as normal/abnormal . [facility] GrapevineKjslrpcSEIUENNJEZ4424-58-88 12:30:00 Test Item Value Reference Range Interpretation Comments Eosinophils # (test code 0.1 See_Comment [A utomated message] The = Eosinophils #) system whic h generated this result tra nsmitted reference range : <=0.5. The reference r shashi was not used to int erpret this result as normal/abnormal . [facility] GrapevineSpmrbidFUBYUNTAHK7355-09-34 12:30:00 Test Item Value Reference Range Interpretation Comments Segs-Bands # (test code = Segs-Bands #) 7.5 1.5-8.1 [facility]rapevineGqgkngfFSPJJNEJAZ9536-21-38 12:30:00 Test Item Value Reference Range Interpretation Comments Lymphocytes # (test code = Lymphocytes 1.6 1.0-5.5 #) [facility]rapevineCmgyyzcURXPRBOAUB1725-11-15 12:30:00 Test Item Value Reference Range Interpretation Comments Eosinophils (test code = 1.2 See_Comment [A utomated message] The Eosinophils) system which ge nerated this result tra nsmitted reference range : <=4.0. The reference r shashi was not used to int erpret this result as normal/abnormal . [facility]rapevineTdcgmszTCLKGQXATG4141-25-20 12:30:00 Test Item Value Reference Range Interpretation Comments Basophils (test code = 0.6 See_Comment [Aut omated message] The Basophils) system which ge nerated this result tra nsmitted reference range : <=1.0. The reference r shashi was not used to int erpret this result as normal/abnormal . [facility]rapevineIjvrlkaVMRHKOWQSX8863-48-02 12:30:00 Test Item Value Reference Range Interpretation Comments Segs (test code = Segs) 75.1 45.0-75.0 [facility]rapevineTwokrxkEMAANARQKG3833-19-55 12:30:00 Test Item Value Reference Range Interpretation Comments Monocytes (test code = Monocytes) 7.4 2.0-12.0 [facility]rapevineHfbgctfBFVQOAPQYQ3731-05-92 12:30:00 Test Item Value Reference Range Interpretation Comments Lymphocytes (test code = Lymphocytes) 15.7 20.0-40.0 [facility]2016-09-10 13:22:00 Test Item Value Reference Range Interpretation Comments UA Urobilinogen (test code = UA 0.2 0.1-1.0 Urobilinogen) [facility]2016-09-10 13:22:00 Test Item Value Reference Range Interpretation Comments UA Nitrite (test code Negative (03/02/16 8:22 = UA Nitrite) AM) [facility] AND [id number] 13:22:00 Test Item Value Reference Range Interpretation Comments UA Leuk Est (test Negative (03/02/16 8:22 code = UA Leuk Est) AM) [facility] AND [id number] 13:22:00 Test Item Value Reference Range Interpretation Comments UA RBC (test code = 0-2 /HPF See_Comment [Automa vale message] The UA RBC) system which ge nerated this result tra nsmitted reference range : <=2. The reference range was not used to interpr et this result as olivia l/abnormal. [facility] AND [id number] 13:22:00 Test Item Value Reference Range Interpretation Comments UA Sq Epi (test code = None Seen (03/02/16 8:22 UA Sq Epi) AM) [facility] AND [id number] 13:22:00 Test Item Value Reference Range Interpretation Comments UA WBC (test code = UA None Seen (03/02/16 8:22 WBC) AM) [facility] AND [id number] 13:22:00 Test Item Value Reference Range Interpretation Comments UA pH (test code = UA pH) 6.0 1 5.0-8.0 [facility] AND [id number] 13:22:00 Test Item Value Reference Range Interpretation Comments UA Protein (test code = UA Negative mg/dL Protein) [facility] AND [id number] 13:22:00 Test Item Value Reference Range Interpretation Comments UA Glucose (test code = UA Negative mg/dL Glucose) [facility] AND [id number] 13:22:00 Test Item Value Reference Range Interpretation Comments UA Ketones (test code = UA Negative mg/dL Ketones) [facility] AND [id number] 13:22:00 Test Item Value Reference Range Interpretation Comments UA Bili (test code = Negative *NA*(03/02/16 UA Bili) 8:22 AM) [facility] AND [id number] 13:22:00 Test Item Value Reference Range Interpretation Comments UA Color (test code = Yellow *NA*(9/10/16 UA Color) 8:22 AM) [facility] AND [id number] 13:22:00 Test Item Value Reference Range Interpretation Comments UA Turbidity (test code = Clear (03/02/16 8:22 UA Turbidity) AM) [facility] AND [id number] 13:22:00 Test Item Value Reference Range Interpretation Comments UA Spec Grav (test code = UA Spec 1.015 1 Grav) [facility] AND [id number] 13:22:00 Test Item Value Reference Range Interpretation Comments UA Blood (test code = Negative (03/02/16 8:22 UA Blood) AM) [facility] [id number] 10:41:00 Test Item Value Reference Range Interpretation Comments A/G Ratio (test code = A/G Ratio) 0.7 0.7-1.6 [facility]2016-09-10 10:41:00 Test Item Value Reference Range Interpretation Comments Globulin (test code = Globulin) 4.6 2.7-4.2 [facility]2016-09-10 10:41:00 Test Item Value Reference Range Interpretation Comments B/C Ratio (test code = B/C Ratio) 16 6-25 [facility]2016-09-10 10:41:00 Test Item Value Reference Range Interpretation Comments AGAP (test code = AGAP) 10.4 10.0-20.0 [facility]2016-09-10 10:41:00 Test Item Value Reference Range Interpretation Comments Total Protein (test code = Total 8.0 6.4-8.4 Protein) [facility]2016-09-10 10:41:00 Test Item Value Reference Range Interpretation Comments Bili Total (test code = Bili Total) 0.3 0.2-1.3 [facility]2016-09-10 10:41:00 Test Item Value Reference Range Interpretation Comments Calcium Lvl (test code = Calcium Lvl) 8.7 8.5-10.5 [facility]2016-09-10 10:41:00 Test Item Value Reference Range Interpretation Comments CO2 (test code = CO2) 26 24-32 [facility]2016-09-10 10:41:00 Test Item Value Reference Range Interpretation Comments Chloride Lvl (test code = Chloride Lvl) 106 95-109 [facility]2016-09-10 10:41:00 Test Item Value Reference Range Interpretation Comments Sodium Lvl (test code = Sodium Lvl) 138 135-145 [facility]2016-09-10 10:41:00 Test Item Value Reference Range Interpretation Comments Potassium Lvl (test code = Potassium 4.4 3.5-5.1 Lvl) [facility]2016-09-10 10:41:00 Test Item Value Reference Range Interpretation Comments eGFR (test code = eGFR) 83 [facility]2016-09-10 10:41:00 Test Item Value Reference Range Interpretation Comments ASPARTATE TRANSAMINASE 13 See_Comment [Aut omated message] (test code = ASPARTATE The s ystem which TRANSAMINASE) generated this result transmitted ref erence range: <=37. Th e reference range was not used to interpr et this result as normal/abnormal . [facility]2016-09-10 10:41:00 Test Item Value Reference Range Interpretation Comments Creatinine Lvl (test code = Creatinine 1.07 0.50-1.40 Lvl) [facility]2016-09-10 10:41:00 Test Item Value Reference Range Interpretation Comments BUN (test code = BUN) 17 7-22 [facility]2016-09-10 10:41:00 Test Item Value Reference Range Interpretation Comments Glucose Lvl (test code = Glucose Lvl) 106 70-99 [facility]2016-09-10 10:41:00 Test Item Value Reference Range Interpretation Comments Alk Phos (test code = Alk Phos) 127 39-136 [facility]2016-09-10 10:41:00 Test Item Value Reference Range Interpretation Comments Albumin Lvl (test code = Albumin Lvl) 3.4 3.5-5.0 [facility]2016-09-10 10:41:00 Test Item Value Reference Range Interpretation Comments ALANINE AMINOTRANSFERASE 33 See_Comment [A utomated message] (test code = ALANINE The sys tem which AMINOTRANSFERASE) generated this result transmitted ref erence range: <=65. Th e reference range was not used to int erpret this result as normal/abnormal . [facility]2016-09-10 10:41:00 Test Item Value Reference Range Interpretation Comments Lipase Lvl (test code = Lipase Lvl) 164 73-393 [facility]vineXfvzyyiLFEQUHYERD9094-88-14 10:41:00 Test Item Value Reference Range Interpretation Comments Basophils # (test code 0.1 See_Comment [Aut omated message] The = Basophils #) system which generated this result tra nsmitted reference range : <=0.2. The reference r shashi was not used to int erpret this result as normal/abnormal . [facility] GrapevineBjaidgaRRPWJYWCCU6577-19-60 10:41:00 Test Item Value Reference Range Interpretation Comments Microcyte (test code = 1+ *ABN*(03/02/16 Microcyte) 5:41 AM) [facility] GrapevineUngvjdkMRWEGLBUYH6797-78-50 10:41:00 Test Item Value Reference Range Interpretation Comments Monocytes (test code = Monocytes) 6.7 2.0-12.0 [facility] GrapevineVktzdlcZOMUMWKGJL2683-35-75 10:41:00 Test Item Value Reference Range Interpretation Comments Lymphocytes (test code = Lymphocytes) 21.9 20.0-40.0 [facility] GrapevineUqqiyajBJJWVHMHRD7560-25-11 10:41:00 Test Item Value Reference Range Interpretation Comments Eosinophils (test code = 1.5 See_Comment [A utomated message] The Eosinophils) system which ge nerated this result tra nsmitted reference range : <=4.0. The reference r shashi was not used to int erpret this result as normal/abnormal . [facility] GrapevineLlcokfsPMUQNIJAFI3943-27-48 10:41:00 Test Item Value Reference Range Interpretation Comments Segs (test code = Segs) 69.1 45.0-75.0 [facility]rapevineVkfsecpOSEQWPAPSH9317-33-68 10:41:00 Test Item Value Reference Range Interpretation Comments Monocytes # (test code 0.8 See_Comment [Aut omated message] The = Monocytes #) system which generated this result tra nsmitted reference range : <=0.8. The reference r shashi was not used to int erpret this result as normal/abnormal . [facility]rapevineBcjhvqxYOLXXWBFTF2036-63-73 10:41:00 Test Item Value Reference Range Interpretation Comments Lymphocytes # (test code = Lymphocytes 2.6 1.0-5.5 #) [facility] GrapevineHqaoixlENIKJTZRAN2489-63-93 10:41:00 Test Item Value Reference Range Interpretation Comments Eosinophils # (test code 0.2 See_Comment [A utomated message] The = Eosinophils #) system whic h generated this result tra nsmitted reference range : <=0.5. The reference r shashi was not used to int erpret this result as normal/abnormal . [facility] GrapevineRzzmyjkMDIDZENNUS2665-14-84 10:41:00 Test Item Value Reference Range Interpretation Comments Segs-Bands # (test code = Segs-Bands #) 8.1 1.5-8.1 [facility] GrapevineYdaegacXFUIKBLXBH2394-58-10 10:41:00 Test Item Value Reference Range Interpretation Comments Basophils (test code = 0.8 See_Comment [Aut omated message] The Basophils) system which ge nerated this result tra nsmitted reference range : <=1.0. The reference r shashi was not used to int erpret this result as normal/abnormal . [facility] GrapevineFodvxkcHBNYETMOWC8820-99-64 10:41:00 Test Item Value Reference Range Interpretation Comments WBC X 10x3 (test code = WBC X 10x3) 11.8 3.7-10.4 [facility]rapevineOoddcsfSYSBCRUWPC8596-60-39 10:41:00 Test Item Value Reference Range Interpretation Comments Hct (test code = Hct) 37.4 42.0-54.0 [facility] GrapevineNedledyGPGWXBMPYM0565-18-91 10:41:00 Test Item Value Reference Range Interpretation Comments RBC X 10x6 (test code = RBC X 10x6) 5.18 4.70-6.10 [facility]rapevineSuavnquBBKCGPXIQD1410-15-56 10:41:00 Test Item Value Reference Range Interpretation Comments Hgb (test code = Hgb) 12.5 14.0-18.0 [facility] GrapevineIjarwloKTJTAQFRJF9891-70-13 10:41:00 Test Item Value Reference Range Interpretation Comments MCH (test code = MCH) 24.1 pg 27.0-31.0 [facility] GrapevineVljfbxzGKGATJVPYY6907-76-44 10:41:00 Test Item Value Reference Range Interpretation Comments RDW (test code = RDW) 16.7 11.5-14.5 [facility] GrapevineDrdxdvwORJZVTPHYX2047-40-08 10:41:00 Test Item Value Reference Range Interpretation Comments MCHC (test code = MCHC) 33.4 32.0-36.0 [facility] GrapevineYrvvhbaHSETUYRTDA9226-15-91 10:41:00 Test Item Value Reference Range Interpretation Comments MCV (test code = MCV) 72.1 80.0-94.0 [facility]rapevineSqyzcsoKFQKQWSVQN1240-76-75 10:41:00 Test Item Value Reference Range Interpretation Comments MPV (test code = MPV) 7.7 7.4-10.4 [facility]rapevineTpruhhwHFYHORSZIK6206-63-72 10:41:00 Test Item Value Reference Range Interpretation Comments Platelet (test code = Platelet) 303 133-450 [facility]FwfhhosKAIUBJQIHHMW7238-45-26 14:27:00 Test Item Value Reference Range Interpretation Comments Potassium Lvl (test code = Potassium 4.4 3.5-5.1 Lvl) [facility] HospitalMitnauqIVWZYRDMDVQQ9212-59-38 14:27:00 Test Item Value Reference Range Interpretation Comments Chloride Lvl (test code = Chloride Lvl) 104 95-109 [facility] HospitalBhygxqbJUBFHXMNBFXJ4942-33-05 14:27:00 Test Item Value Reference Range Interpretation Comments Sodium Lvl (test code = Sodium Lvl) 136 135-145 [facility] HospitalBfjgcndBIESINDVSHHD1913-73-71 14:27:00 Test Item Value Reference Range Interpretation Comments Glucose Lvl (test code = Glucose Lvl) 147 70-99 [facility] HospitalEsalafhFBQXINMKCKEQ8358-97-94 14:27:00 Test Item Value Reference Range Interpretation Comments Creatinine Lvl (test code = Creatinine 0.88 0.50-1.40 Lvl) [facility] HospitalCugzkfjOPZXGVYETMZQ1486-07-29 14:27:00 Test Item Value Reference Range Interpretation Comments BUN (test code = BUN) 10 7-22 [facility] HospitalQvqixcjNTVBUPPSSWUN5974-33-11 14:27:00 Test Item Value Reference Range Interpretation Comments eGFR (test code = eGFR) 103 [facility] HospitalJvktjmsYCCFPDFZHZWX0162-08-95 14:27:00 Test Item Value Reference Range Interpretation Comments Calcium Lvl (test code = Calcium Lvl) 8.8 8.5-10.5 [facility] HospitalIshiyrpSRWELPUDKILG7625-08-34 14:27:00 Test Item Value Reference Range Interpretation Comments CO2 (test code = CO2) 24 24-32 [facility] HospitalJgoebarMUZJHIZJKLBF8064-18-17 14:27:00 Test Item Value Reference Range Interpretation Comments AGAP (test code = AGAP) 12.4 10.0-20.0 [facility]vineYgbbcdhLTGRKOJUVB5208-77-65 14:27:00 Test Item Value Reference Range Interpretation Comments RDW (test code = RDW) 16.3 11.5-14.5 [facility] GrapevineNxriumoIXQNIVKGED6839-33-80 14:27:00 Test Item Value Reference Range Interpretation Comments Platelet (test code = Platelet) 273 133-450 [facility] GrapevineZvkbiqdXOKIMNSCPO0675-00-24 14:27:00 Test Item Value Reference Range Interpretation Comments MPV (test code = MPV) 7.5 7.4-10.4 [facility] GrapevineWlohctbUJWBQVUZIP8956-78-89 14:27:00 Test Item Value Reference Range Interpretation Comments Hgb (test code = Hgb) 12.8 14.0-18.0 [facility] GrapevineBjqiysxEJVPIGATHY4269-26-27 14:27:00 Test Item Value Reference Range Interpretation Comments RBC X 10x6 (test code = RBC X 10x6) 5.31 4.70-6.10 [facility] GrapevineAnkunooFICKCHMQCQ6618-59-31 14:27:00 Test Item Value Reference Range Interpretation Comments WBC X 10x3 (test code = WBC X 10x3) 11.1 3.7-10.4 [facility] GrapevineAtuolkwKFUSYLFXWA9084-19-31 14:27:00 Test Item Value Reference Range Interpretation Comments MCV (test code = MCV) 72.6 80.0-94.0 [facility] GrapevineEigojkeIIHODIFVWI8795-76-91 14:27:00 Test Item Value Reference Range Interpretation Comments Hct (test code = Hct) 38.6 42.0-54.0 [facility] GrapevineXfrpvsmOZOKXOPEJE9308-04-15 14:27:00 Test Item Value Reference Range Interpretation Comments MCH (test code = MCH) 24.1 pg 27.0-31.0 [facility] GrapevineOaydnxwLHTRAQLKVL6023-54-63 14:27:00 Test Item Value Reference Range Interpretation Comments MCHC (test code = MCHC) 33.1 32.0-36.0 [facility] JXHLRXQ2567-94-27 10:20:45 Test Item Value Reference Range Interpretation Comments Troponin-I (test code no gt See_Comment [Auto mated message] The = Troponin-I) system which g enerated this result transmit vale reference range : <=0.40. The reference r shashi was not used to interpr et this result as olivia l/abnormal. [facility] GrapevineSvfykrhPWJOOGVTAN0576-44-70 10:20:45 Test Item Value Reference Range Interpretation Comments Monocytes (test code = Monocytes) 7.9 2.0-12.0 [facility] GrapevineYmjfkhpXCRWVCVMCT0101-54-56 10:20:45 Test Item Value Reference Range Interpretation Comments Lymphocytes (test code = Lymphocytes) 20.8 20.0-40.0 [facility] GrapevineXpbhufuMOPYAFBADA0720-23-80 10:20:45 Test Item Value Reference Range Interpretation Comments Segs (test code = Segs) 69.1 45.0-75.0 [facility] GrapevineGguoedaXNXLIISRBW4963-49-18 10:20:45 Test Item Value Reference Range Interpretation Comments Lymphocytes # (test code = Lymphocytes 2.2 1.0-5.5 #) [facility] GrapevineDsucubiUFRBRRLREC2882-64-86 10:20:45 Test Item Value Reference Range Interpretation Comments Monocytes # (test code 0.8 See_Comment [Aut omated message] The = Monocytes #) system which generated this result tra nsmitted reference range : <=0.8. The reference r shashi was not used to int erpret this result as normal/abnormal . [facility] GrapevineNodrpxrYCHAKSBKOW3072-55-95 10:20:45 Test Item Value Reference Range Interpretation Comments Eosinophils (test code = 1.6 See_Comment [A utomated message] The Eosinophils) system which ge nerated this result tra nsmitted reference range : <=4.0. The reference r shashi was not used to int erpret this result as normal/abnormal . [facility] GrapevineKrkdoqrTXXABQKKZJ2088-28-01 10:20:45 Test Item Value Reference Range Interpretation Comments Segs-Bands # (test code = Segs-Bands #) 7.5 1.5-8.1 [facility] GrapevineBdfosleUNJJDVETVM6448-06-15 10:20:45 Test Item Value Reference Range Interpretation Comments Basophils (test code = 0.6 See_Comment [Aut omated message] The Basophils) system which ge nerated this result tra nsmitted reference range : <=1.0. The reference r shashi was not used to int erpret this result as normal/abnormal . [facility] GrapevineUcofztbKKNZZPYDCU5557-89-73 10:20:45 Test Item Value Reference Range Interpretation Comments Microcyte (test code = 1+ *ABN*(02/18/16 Microcyte) 5:20 AM) [place] [id number] 10:20:45 Test Item Value Reference Range Interpretation Comments Basophils # (test code 0.1 See_Comment [Aut omated message] The = Basophils #) system which generated this result tra nsmitted reference range : <=0.2. The reference r shashi was not used to int erpret this result as normal/abnormal . [facility] GrapevineFunrnafQMCXGNRHBA1218-83-83 10:20:45 Test Item Value Reference Range Interpretation Comments Eosinophils # (test code 0.2 See_Comment [A utomated message] The = Eosinophils #) system whic h generated this result tra nsmitted reference range : <=0.5. The reference r shashi was not used to int erpret this result as normal/abnormal . [facility] GrapevineOumsbywYGTDYWITML9881-69-19 10:20:45 Test Item Value Reference Range Interpretation Comments RBC X 10x6 (test code = RBC X 10x6) 4.91 4.70-6.10 [facility] GrapevineQbtyspmJJBETGZLSX3519-41-82 10:20:45 Test Item Value Reference Range Interpretation Comments WBC X 10x3 (test code = WBC X 10x3) 10.8 3.7-10.4 [facility] GrapevineIdcmdynPFTMOAREQH0026-23-52 10:20:45 Test Item Value Reference Range Interpretation Comments MCH (test code = MCH) 24.1 pg 27.0-31.0 [facility] GrapevineWzjiqaqSIDLYUGCEC1108-61-54 10:20:45 Test Item Value Reference Range Interpretation Comments MCV (test code = MCV) 73.1 80.0-94.0 [facility] GrapevineEbxyjpwHMRGICAAVR0865-34-13 10:20:45 Test Item Value Reference Range Interpretation Comments Hct (test code = Hct) 35.9 42.0-54.0 [facility] GrapevineRjitmiaEZWGQXPAEE2501-15-29 10:20:45 Test Item Value Reference Range Interpretation Comments Hgb (test code = Hgb) 11.8 14.0-18.0 [facility] GrapevineJinzxewEXMJAGNOSN4357-71-03 10:20:45 Test Item Value Reference Range Interpretation Comments MPV (test code = MPV) 7.4 7.4-10.4 [facility] GrapevineCowlmfyNTCPDWWOHY1200-13-14 10:20:45 Test Item Value Reference Range Interpretation Comments RDW (test code = RDW) 16.3 11.5-14.5 [facility] CenterOpeclllMOXXBUTORM2300-21-42 10:20:45 Test Item Value Reference Range Interpretation Comments MCHC (test code = MCHC) 33.0 32.0-36.0 [facility] CenterXdbysajTOLGTNZZLD2127-61-48 10:20:45 Test Item Value Reference Range Interpretation Comments Platelet (test code = Platelet) 270 133-450 [facility] CenterannCARDIAC [id number] 21:41:44 Test Item Value Reference Range Interpretation Comments Troponin-I (test code no gt See_Comment [Auto mated message] The = Troponin-I) system which g enerated this result transmit vale reference range : <=0.40. The reference r shashi was not used to interpr et this result as olivia l/abnormal. [facility] CenterCHEM [id number] 21:41:44 Test Item Value Reference Range Interpretation Comments Procalcitonin Lvl (test no gt See_Comment [Au tomated message] code = Procalcitonin Lvl) Th e system which generated this result transmitted ref erence range: <=0.10. The reference range was not used to interpr et this result as normal/abnormal . [facility] [id number] 15:34:00 Test Item Value Reference Range Interpretation Comments Troponin-I (test code no gt See_Comment [Auto mated message] The = Troponin-I) system which g enerated this result transmit vale reference range : <=0.40. The reference r shashi was not used to interpr et this result as olivia l/abnormal. [facility] AND [id number] 11:27:00 Test Item Value Reference Range Interpretation Comments UA Bacteria (test code = None Seen (02/17/16 UA Bacteria) 6:27 AM) [facility] [id number] 11:27:00 Test Item Value Reference Range Interpretation Comments UA RBC (test None Seen See_Comment [Automated mes johnna] code = UA RBC) (02/17/16 6:27 The system w hich AM) generated this result transmitted ref erence range: <=2. The reference range was not used to int erpret this result as normal/abnormal . [facility]annUR[facility] AND [id number] 11:27:00 Test Item Value Reference Range Interpretation Comments UA Mucus (test code = UA Mucus) Few /LPF [facility] AND [id number] 11:27:00 Test Item Value Reference Range Interpretation Comments UA Sq Epi (test code = UA Sq Epi) Rare /LPF [facility] AND [id number] 11:27:00 Test Item Value Reference Range Interpretation Comments UA WBC (test code = UA WBC) 0-2 /HPF [facility] AND [id number] 11:27:00 Test Item Value Reference Range Interpretation Comments UA Leuk Est (test Negative (02/17/16 6:27 code = UA Leuk Est) AM) [facility] AND [id number] 11:27:00 Test Item Value Reference Range Interpretation Comments UA Urobilinogen (test code = UA 0.2 0.1-1.0 Urobilinogen) [facility] AND [id number] 11:27:00 Test Item Value Reference Range Interpretation Comments UA Nitrite (test code Negative (02/17/16 6:27 = UA Nitrite) AM) [facility] AND [id number] 11:27:00 Test Item Value Reference Range Interpretation Comments UA Spec Grav (test code = UA Spec 1.025 1 Grav) [facility] AND [id number] 11:27:00 Test Item Value Reference Range Interpretation Comments UA Turbidity (test code = Clear (02/17/16 6:27 UA Turbidity) AM) [facility] AND [id number] 11:27:00 Test Item Value Reference Range Interpretation Comments UA Color (test code = Yellow *NA*(02/17/16 UA Color) 6:27 AM) [facility] AND [id number] 11:27:00 Test Item Value Reference Range Interpretation Comments UA Bili (test code = Negative *NA*(02/17/16 UA Bili) 6:27 AM) [facility] AND [id number] 11:27:00 Test Item Value Reference Range Interpretation Comments UA Blood (test code = Negative (02/17/16 6:27 UA Blood) AM) [facility] AND [id number] 11:27:00 Test Item Value Reference Range Interpretation Comments UA Ketones (test code = UA Negative mg/dL Ketones) [facility] AND [id number] 11:27:00 Test Item Value Reference Range Interpretation Comments UA Glucose (test code = UA Negative mg/dL Glucose) [facility] [id number] 11:27:00 Test Item Value Reference Range Interpretation Comments UA pH (test code = UA pH) 6.0 1 5.0-8.0 [facility] AND [id number] 11:27:00 Test Item Value Reference Range Interpretation Comments UA Protein (test code = UA Negative mg/dL Protein) [facility] DallasBe[place] [employer] and technologyCARYokaAC [id number] 10:50:00 Test Item Value Reference Range Interpretation Comments CK-MB INDEX (test 1.6 See_Comment [Automate d message] The code = CK-MB INDEX) system w [facility] generated this result transmit vale reference range : <=2.5. The reference range was not used to interpr et this result as olivia l/abnormal. [facility] PercuVisionAC [id number] 10:50:00 Test Item Value Reference Range Interpretation Comments CK MB (test code = CK MB) 0.9 0.5-3.6 [facility] Dallasefish USAAC [id number] 10:50:00 Test Item Value Reference Range Interpretation Comments Total CK (test code = Total CK) 58 12-191 [facility] [employer] [id number] 10:50:00 Test Item Value Reference Range Interpretation Comments eGFR (test code = eGFR) 93 [facility] [employer] [id number] 10:50:00 Test Item Value Reference Range Interpretation Comments ALANINE AMINOTRANSFERASE 33 See_Comment [A utomated message] (test code = ALANINE The sys tem which AMINOTRANSFERASE) generated this result transmitted ref erence range: <=65. Th e reference range was not used to int erpret this result as normal/abnormal . [facility] [employer] [id number] 10:50:00 Test Item Value Reference Range Interpretation Comments CO2 (test code = CO2) 23 24-32 [facility] [employer] [id number] 10:50:00 Test Item Value Reference Range Interpretation Comments Calcium Lvl (test code = Calcium Lvl) 8.8 8.5-10.5 [facility] [employer] [id number] 10:50:00 Test Item Value Reference Range Interpretation Comments Potassium Lvl (test code = Potassium 4.0 3.5-5.1 Lvl) [facility]2016-08-27 10:50:00 Test Item Value Reference Range Interpretation Comments Chloride Lvl (test code = Chloride Lvl) 105 95-109 [facility]2016-08-27 10:50:00 Test Item Value Reference Range Interpretation Comments Creatinine Lvl (test code = Creatinine 0.97 0.50-1.40 Lvl) [facility]2016-08-27 10:50:00 Test Item Value Reference Range Interpretation Comments Glucose Lvl (test code = Glucose Lvl) 103 70-99 [facility]2016-08-27 10:50:00 Test Item Value Reference Range Interpretation Comments BUN (test code = BUN) 11 7-22 [facility]2016-08-27 10:50:00 Test Item Value Reference Range Interpretation Comments Albumin Lvl (test code = Albumin Lvl) 3.4 3.5-5.0 [facility]2016-08-27 10:50:00 Test Item Value Reference Range Interpretation Comments Alk Phos (test code = Alk Phos) 128 39-136 [facility]2016-08-27 10:50:00 Test Item Value Reference Range Interpretation Comments Bili Total (test code = Bili Total) 0.5 0.2-1.3 [facility]2016-08-27 10:50:00 Test Item Value Reference Range Interpretation Comments Sodium Lvl (test code = Sodium Lvl) 139 135-145 [facility]2016-08-27 10:50:00 Test Item Value Reference Range Interpretation Comments AGAP (test code = AGAP) 15.0 10.0-20.0 [facility]2016-08-27 10:50:00 Test Item Value Reference Range Interpretation Comments B/C Ratio (test code = B/C Ratio) 11 - [facility]2016-08-27 10:50:00 Test Item Value Reference Range Interpretation Comments Total Protein (test code = Total 8.0 6.4-8.4 Protein) [facility]2016-08-27 10:50:00 Test Item Value Reference Range Interpretation Comments ASPARTATE TRANSAMINASE 16 See_Comment [Aut omated message] (test code = ASPARTATE The s ystem which TRANSAMINASE) generated this result transmitted ref erence range: <=37. Th e reference range was not used to interpr et this result as normal/abnormal . [facility] [id number] 10:50:00 Test Item Value Reference Range Interpretation Comments Globulin (test code = Globulin) 4.6 2.7-4.2 [facility] [id number] 10:50:00 Test Item Value Reference Range Interpretation Comments A/G Ratio (test code = A/G Ratio) 0.7 0.7-1.6 [facility] GrapevineSenucsoKFCCTWKOAX2298-02-75 10:50:00 Test Item Value Reference Range Interpretation Comments Microcyte (test code = 1+ *ABN*(02/17/16 Microcyte) 5:50 AM) [facility] GrapevineDtbiclhRHRZEFQEHQ6974-52-05 10:50:00 Test Item Value Reference Range Interpretation Comments Basophils # (test code 0.1 See_Comment [Aut omated message] The = Basophils #) system which generated this result tra nsmitted reference range : <=0.2. The reference r shashi was not used to int erpret this result as normal/abnormal . [facility] GrapevineTnmrqwpNHTKDLMVYZ9550-18-04 10:50:00 Test Item Value Reference Range Interpretation Comments Basophils (test code = 0.5 See_Comment [Aut omated message] The Basophils) system which ge nerated this result tra nsmitted reference range : <=1.0. The reference r shashi was not used to int erpret this result as normal/abnormal . [facility] GrapevineSzjbjuuSVPPHJMQXG7334-80-26 10:50:00 Test Item Value Reference Range Interpretation Comments Lymphocytes # (test code = Lymphocytes 2.4 1.0-5.5 #) [facility] GrapevineNvlwsfeXAUYLSNXRQ7324-46-24 10:50:00 Test Item Value Reference Range Interpretation Comments Monocytes # (test code 0.8 See_Comment [Aut omated message] The = Monocytes #) system which generated this result tra nsmitted reference range : <=0.8. The reference r shashi was not used to int erpret this result as normal/abnormal . [facility] GrapevineHahrfalPGJTGWLTHT7195-06-88 10:50:00 Test Item Value Reference Range Interpretation Comments Eosinophils # (test code 0.1 See_Comment [A utomated message] The = Eosinophils #) system whic h generated this result tra nsmitted reference range : <=0.5. The reference r shashi was not used to int erpret this result as normal/abnormal . [facility] GrapevineWkgbvswZWVNGXZNFG3169-60-27 10:50:00 Test Item Value Reference Range Interpretation Comments Segs-Bands # (test code = Segs-Bands #) 8.7 1.5-8.1 [facility] GrapevineBygwczfAJMICUUGVJ8933-24-63 10:50:00 Test Item Value Reference Range Interpretation Comments Eosinophils (test code = 1.2 See_Comment [A utomated message] The Eosinophils) system which ge nerated this result tra nsmitted reference range : <=4.0. The reference r shashi was not used to int erpret this result as normal/abnormal . [facility] GrapevineWgvnnnwOHYJXORDHM4089-89-92 10:50:00 Test Item Value Reference Range Interpretation Comments Segs (test code = Segs) 72.1 45.0-75.0 [facility] GrapevineTqmzmmrMGBVPLLKIV2303-62-15 10:50:00 Test Item Value Reference Range Interpretation Comments Lymphocytes (test code = Lymphocytes) 19.8 20.0-40.0 [facility] GrapevineDcpazweVOVZGIIXFV5334-77-89 10:50:00 Test Item Value Reference Range Interpretation Comments Monocytes (test code = Monocytes) 6.4 2.0-12.0 [facility] GrapevineRkmtlabYGVLPRVQRI9722-05-63 10:50:00 Test Item Value Reference Range Interpretation Comments Platelet (test code = Platelet) 327 133-450 [facility] GrapevineCqhmvmjSRMPMZCPBT1477-84-74 10:50:00 Test Item Value Reference Range Interpretation Comments MCH (test code = MCH) 24.1 pg 27.0-31.0 [facility] GrapevineAwujxxfTXCLGTRWLT4941-98-11 10:50:00 Test Item Value Reference Range Interpretation Comments MCHC (test code = MCHC) 33.3 32.0-36.0 [facility] GrapevineOzdysiqOOYNUDYIDG2591-82-18 10:50:00 Test Item Value Reference Range Interpretation Comments MPV (test code = MPV) 7.6 7.4-10.4 [facility] GrapevineZpjjgtuZXFUOLUMIC3829-38-93 10:50:00 Test Item Value Reference Range Interpretation Comments RDW (test code = RDW) 16.3 11.5-14.5 [facility] GrapevineZrigxhtNYFSQYUSCZ0941-45-54 10:50:00 Test Item Value Reference Range Interpretation Comments Hgb (test code = Hgb) 13.1 14.0-18.0 [facility] GrapevineLwnruwrSJSPTIUOBC6239-49-35 10:50:00 Test Item Value Reference Range Interpretation Comments Hct (test code = Hct) 39.5 42.0-54.0 [facility] GrapevineKteyoxbYRBMHICSSM8465-01-54 10:50:00 Test Item Value Reference Range Interpretation Comments WBC X 10x3 (test code = WBC X 10x3) 12.0 3.7-10.4 [facility] GrapevineRumgvdwEAKBZLATYO3019-33-58 10:50:00 Test Item Value Reference Range Interpretation Comments RBC X 10x6 (test code = RBC X 10x6) 5.45 4.70-6.10 [facility] GrapevineCjachtfTEHHBQHQVE5535-46-06 10:50:00 Test Item Value Reference Range Interpretation Comments MCV (test code = MCV) 72.6 80.0-94.0 [facility]
[2021-09-16] MEDS ORDERED: NITROGLYCERIN 0.4 MG/TAB SL ONE (16:11)
[2021-09-16 16:21] LABS: Absolute Lymphocytes (CBC) 1.5 K/uL (0.7-4.9); Hematocrit 38.3 % (39.6-49.0); Lymphocytes % 12.3 % (15.3-44.8); MPV 7.1 fL (7.6-11.3); RBC Red Blood Cell Count 5.19 M/uL (4.33-5.43)
[2021-09-16 16:32] LABS: Protime INR 1.57
[2021-09-16 16:44] LABS: Albumin 3.4 g/dL (3.4-5.0); Bilirubin Direct 0.2 mg/dL (0-0.2); Bilirubin Total 0.4 mg/dL (0.2-1.0); Magnesium 2.5 mg/dL (1.8-2.4); Potassium 3.7 mmol/L (3.5-5.1); Protein, Total 8.6 g/dL (6.4-8.2); Troponin High Sensitivity 6.4 pg/mL (<58.9)
[2021-09-16] MEDS ORDERED: ONDANSETRON 4 MG/2 ML VIAL ONE (17:14)
[2021-09-16] MEDS ORDERED: MORPHINE 4 MG/ML SYR ONE (17:14)
--- NOTE | 2021-09-16 17:41 | EDPHYS ---
Physician Documentation [facility] Name: Marquis Nelson Age: 51 yrs Sex: Male : 1970 Arrival Date: 09/16/2021 Time: 15:36 Bed 8 Private MD: ED Physician Jose Nolasco HPI: 09/16 16:01 This 51 yrs old Male presents to ER via Ambulatory with complaints of Chest Pain. pm1 16:01 The patient or guardian reports chest pain that is located primarily in the mid-sternal pm1 area. Onset: 1 hour prior to arrival. The pain does not radiate. Associated signs and symptoms: Pertinent positives: nausea, Pertinent negatives: diaphoresis, dizziness, headache, shortness of breath. The chest pain is described as a pressure. Duration: The patient or guardian reports a single episode, that is still ongoing. Modifying factors: The symptoms are alleviated by NTG at home helped with pain a little. Severity of pain: in the emergency department the pain is a 10 / 10. The patient has experienced similar episodes in the past, multiple times. The patient has not recently seen a physician. Historical: - Allergies: 15:52 Beta Blockers (sensitive/hypotension); ab2 15:52 Flomax; ab2 15:52 Ibuprofen; ab2 15:52 Neurontin; ab2 15:52 Remeron; ab2 15:52 Skelaxin; ab2 15:52 spironolactone; ab2 15:52 tramadol; ab2 15:52 Trazodone; ab2 15:52 Stadol; ab2 - PMHx: 15:52 AAA; ADD/ADHD; GERD; CHF; Anemia; Anxiety; Atrial Fib; CAD; Myocardial infarction; High ab2 Cholesterol; Pacemaker; Pulmonary Embolism; - Immunization history:: Adult Immunizations up to date. - Social history:: Smoking status: Patient denies any tobacco usage or history of. ROS: 16:01 Constitutional: Negative for fever, chills, and weight loss. pm1 16:01 Respiratory: Negative for shortness of breath, cough, wheezing, and pleuritic chest pain. 16:01 Abdomen/GI: Negative for abdominal pain, nausea, vomiting, diarrhea, and constipation, Back: Negative for injury and pain, MS/Extremity: Negative for injury and deformity, Skin: Negative for injury, rash, and discoloration, Neuro: Negative for headache, weakness, numbness, tingling, and seizure. 16:01 Cardiovascular: Positive for chest pain. 16:01 Respiratory: 16:01 All other systems are negative. Exam: 16:01 Constitutional: This is a well developed, well nourished patient who is awake, alert, pm1 and in no acute distress. Head/Face: Normocephalic, atraumatic. 16:01 MS/ Extremity: Pulses equal, no cyanosis. Neurovascular intact. Full, normal range of motion. 16:01 Eyes: Exam is negative for acute changes, Extraocular movements: no acute changes, Conjunctiva: no acute changes, no injection. 16:01 ENT: Exam is negative for acute changes, Mouth: no acute changes, Lips: normal, moist, Oral mucosa: normal, pink and intact, moist. 16:01 Cardiovascular: Exam negative for acute changes, Rate: normal, Rhythm: regular, Pulses: no pulse deficits are appreciated. 16:01 Respiratory: Exam negative for acute changes, respiratory distress, shortness of breath, Breath sounds: are clear throughout. 16:01 Abdomen/GI: Inspection: obese Palpation: abdomen is soft and non-tender, in all quadrants. 16:01 Neuro: Exam negative for acute changes, Orientation: is normal, Mentation: is normal, Motor: is normal, moves all fours. Vital Signs: 15:51 BP 140 / 77; Pulse 78; Resp 20; Temp 98.1; Pulse Ox 98% on R/A; Weight 122.47 kg; ab2 Height 5 ft. 10 in. (177.80 cm); Pain 10/10; 16:30 BP 117 / 86; Pulse 81; Resp 16; Pulse Ox 97% on R/A; ww 17:30 BP 106 / 69; Pulse 67; Resp 10; Pulse Ox 96% on R/A; ww 18:09 BP 105 / 65; Pulse 68; Resp 13; Pulse Ox 97% on R/A; ww 19:27 BP 111 / 69; Pulse 63; Resp 13; Pulse Ox 97% on R/A; sm5 15:51 Body Mass Index 38.74 (122.47 kg, 177.80 cm) ab2 MDM: 15:57 Patient medically screened. [facility] 15:59 Data reviewed: vital signs. Data interpreted: Pulse oximetry: on room air is 98 %. pm1 Interpretation: normal. 17:39 Counseling: I had a detailed discussion with the patient and/or guardian regarding: the pm1 historical points, exam findings, and any diagnostic results supporting the discharge/admit diagnosis, lab results, radiology results, the need for further work-up and treatment in the hospital. 09/16 16:01 Order name: Basic Metabolic Panel; Complete Time: 16:46 pm1 09/16 16:01 Order name: CBC with Diff; Complete Time: 16:39 pm1 09/16 16:01 Order name: LFT's; Complete Time: 16:46 pm1 09/16 16:01 Order name: Magnesium; Complete Time: 16:46 pm1 09/16 16:01 Order name: NT PRO-BNP; Complete Time: 16:46 pm1 09/16 16:01 Order name: PT-INR; Complete Time: 16:39 pm1 09/16 16:01 Order name: Troponin HS; Complete Time: 16:46 pm1 09/16 16:01 Order name: XRAY Chest (1 view); Complete Time: 18:00 pm1 09/16 16:01 Order name: EKG; Complete Time: 16:02 pm1 09/16 18:01 Order name: COVID-19 SARS RT PCR (Document "Date of Onset" if Symptomatic) pm1 09/16 16:01 Order name: Cardiac monitoring; Complete Time: 16:06 pm09/16 16:01 Order name: EKG - Nurse/Tech; Complete Time: 16:06 pm09/16 16:01 Order name: IV Saline Lock; Complete Time: 16:09 pm09/16 16:01 Order name: Labs collected and sent; Complete Time: 16:09 pm09/16 16:01 Order name: O2 Per Protocol; Complete Time: 16:06 pm09/16 16:01 Order name: O2 Sat Monitoring; Complete Time: 16:06 pm1 Administered Medications: 16:09 Drug: Nitroglycerin 0.4 mg Route: Sublingual; ww 16:26 Drug: Nitroglycerin 0.4 mg Route: Sublingual; ww 20:17 Follow up: Response: Pain is decreased sm5 17:14 Drug: morphine 4 mg Route: IVP; Site: left antecubital; ww 20:17 Follow up: Response: Pain is decreased sm5 17:16 Drug: Zofran (Ondansetron) 4 mg Route: IVP; Site: left antecubital; ww 20:17 Follow up: Response: No adverse reaction sm5 17:53 Drug: fentaNYL (PF) 50 mcg Route: IVP; Site: left antecubital; ww 20:16 Follow up: Response: Pain is decreased sm5 Disposition Summary: 09/16/21 17:40 Hospitalization Ordered Hospitalization Status: Observation pm1 Provider: Mary Anne Edwards pm1 Location: Telemetry/MedSur (observation) pm1 Condition: Stable pm1 Problem: new pm1 Symptoms: have improved pm1 Bed/Room Type: Standard pm1 Room Assignment: 209(09/16/21 19:21) mw Diagnosis - Chest pain, unspecified pm1 Forms: - Medication Reconciliation Form pm1 - SBAR form pm1 Addendum: 09/19/2021 07:17 Co-signature as Attending Physician, Jose Nolasco MD I agree with the assessment and c lemos plan of care. Signatures: Dispatcher [employer] EDMS Amrita Bear RN Jose Andino MD MD cha Marinas, Patrick, FORKLIFT MATERIAL HANDLER FORKLIFT MATERIAL HANDLER pm1 Melva Anand RN RN Violette Saab RN RN Malick Haley Corrections: (The following items were deleted from the chart) 09/16 19:21 17:40 pm1 mw
--- NOTE | 2021-09-16 17:41 | ER ---
Nurse's Notes [facility] Name: Marquis Nelson Age: 51 yrs Sex: Male : 1970 Arrival Date: 09/16/2021 Time: 15:36 Bed 8 Private MD: Diagnosis: Chest pain, unspecified Presentation: 09/16 15:51 Chief complaint: Patient states: "I have severe chest pain, it started at 2:30pm.". ab2 Coronavirus screen: Vaccine status: Patient reports being unvaccinated. Client denies travel out of the [place] in the last 14 days. At this time, the client does not indicate any symptoms associated with coronavirus-19. Ebola Screen: Patient negative for fever greater than or equal to 101.5 degrees Fahrenheit, and additional compatible Ebola Virus Disease symptoms Patient denies exposure to infectious person. Patient denies travel to an Ebola-affected area in the 21 days before illness onset. No symptoms or risks identified at this time. Initial Sepsis Screen: Does the patient meet any 2 criteria? No. Patient's initial sepsis screen is negative. Does the patient have a suspected source of infection? No. Patient's initial sepsis screen is negative. Risk Assessment: Do you want to hurt yourself or someone else? Patient reports no desire to harm self or others. Onset of symptoms is unknown. 15:51 Method Of Arrival: Ambulatory ab2 15:51 Acuity: THANH 3 ab2 Triage Assessment: 15:53 General: Appears in no apparent distress. uncomfortable, Behavior is calm, cooperative, ab2 appropriate for age. Pain: Complains of pain in chest. Cardiovascular: Reports chest pain, shortness of breath. Historical: - Allergies: 15:52 Beta Blockers (sensitive/hypotension); ab2 15:52 Flomax; ab2 15:52 Ibuprofen; ab2 15:52 Neurontin; ab2 15:52 Remeron; ab2 15:52 Skelaxin; ab2 15:52 spironolactone; ab2 15:52 tramadol; ab2 15:52 Trazodone; ab2 15:52 Stadol; ab2 - PMHx: 15:52 AAA; ADD/ADHD; GERD; CHF; Anemia; Anxiety; Atrial Fib; CAD; Myocardial infarction; High ab2 Cholesterol; Pacemaker; Pulmonary Embolism; - Immunization history:: Adult Immunizations up to date. - Social history:: Smoking status: Patient denies any tobacco usage or history of. Screenin:02 Abuse screen: Denies threats or abuse. Denies injuries from another. Nutritional ww screening: No deficits noted. Tuberculosis screening: No symptoms or risk factors identified. Fall Risk None identified. Assessment: 16:02 General: Appears uncomfortable, Behavior is cooperative. Pain: Complains of pain in ww anterior aspect of left upper chest Pain radiates to left jaw Pain began gradually. Neuro: Level of Consciousness is awake, alert, obeys commands, Oriented to person, place, time, situation, Moves all extremities. Speech is normal. Cardiovascular: Capillary refill < 3 seconds Patient's skin is warm and dry. Rhythm is regular. Cardiovascular: Chest pain. Respiratory: Airway is patent Respiratory effort is even, unlabored, Respiratory pattern is regular, symmetrical. GI: No signs and/or symptoms were reported involving the gastrointestinal system. Abdomen is obese. Derm: No signs and/or symptoms reported regarding the dermatologic system. Skin is intact. 17:00 Reassessment: Patient appears in no apparent distress at this time. No changes from previously documented assessment. Patient and/or family updated on plan of care and expected duration. Pain level reassessed. Patient is alert, oriented x 3, equal unlabored respirations, skin warm/dry/pink. symptoms mildly improved. 18:09 Reassessment: Patient appears in no apparent distress at this time. No changes from previously documented assessment. Patient and/or family updated on plan of care and expected duration. Pain level reassessed. Patient is alert, oriented x 3, equal unlabored respirations, skin warm/dry/pink. Patient states feeling better. 19:29 Reassessment: attempted to call report to floor, nurse unavailable. 5 19:49 Reassessment: attempted report to floor, nurse unavailable. 5 Vital Signs: 15:51 BP 140 / 77; Pulse 78; Resp 20; Temp 98.1; Pulse Ox 98% on R/A; Weight 122.47 kg; ab2 Height 5 ft. 10 in. (177.80 cm); Pain 10/10; 16:30 BP 117 / 86; Pulse 81; Resp 16; Pulse Ox 97% on R/A; ww 17:30 BP 106 / 69; Pulse 67; Resp 10; Pulse Ox 96% on R/A; ww 18:09 BP 105 / 65; Pulse 68; Resp 13; Pulse Ox 97% on R/A; ww 19:27 BP 111 / 69; Pulse 63; Resp 13; Pulse Ox 97% on R/A; sm5 15:51 Body Mass Index 38.74 (122.47 kg, 177.80 cm) ab2 ED Course: 15:36 Patient arrived in ED. ds1 15:52 Triage completed. ab2 15:53 Jaun Fraser NP is PHCP. pm1 15:53 Jose Nolasco MD is Attending Physician. pm1 15:54 Arm band placed on right wrist. ab2 15:55 EKG done, by ED staff, reviewed by Jaun Fraser NP. jw7 16:02 Patient has correct armband on for positive identification. Bed in low position. Call ww light in reach. Side rails up X 1. Child being held by parent. professor of engineering on. Pulse ox on. NIBP on. 16:02 Patient maintains SpO2 saturation greater than 95% on room air. ww 16:16 Inserted saline lock: 20 gauge in left antecubital area, using aseptic technique. Blood jw7 collected. 16:26 Violette Preciado RN is Primary Nurse. ww 16:34 XRAY Chest (1 view) In Process Unspecified. EDMS 17:40 Walker Calvin MD is Hospitalizing Provider. pm1 17:40 Hospitalizing Provider role handed off by Walker Calvin MD pm1 17:40 Mary Anne Edwards PA is Hospitalizing Provider. pm1 19:16 Primary Nurse role handed off by Violette Preciado RN mw2 20:16 No provider procedures requiring assistance completed. Patient admitted, IV remains in sm5 place. Administered Medications: 16:09 Drug: Nitroglycerin 0.4 mg Route: Sublingual; ww 16:26 Drug: Nitroglycerin 0.4 mg Route: Sublingual; ww 20:17 Follow up: Response: Pain is decreased sm5 17:14 Drug: morphine 4 mg Route: IVP; Site: left antecubital; ww 20:17 Follow up: Response: Pain is decreased sm5 17:16 Drug: Zofran (Ondansetron) 4 mg Route: IVP; Site: left antecubital; ww 20:17 Follow up: Response: No adverse reaction 5 17:53 Drug: fentaNYL (PF) 50 mcg Route: IVP; Site: left antecubital; ww 20:16 Follow up: Response: Pain is decreased [facility] Outcome: 17:40 Decision to Hospitalize by Provider. pm1 20:16 Admitted to Med/surg accompanied by nurse, via wheelchair, with chart. [facility] 20:16 Condition: stable 20:16 Instructed on the need for admit. 20:17 Patient left the ED. [facility] Signatures: Dispatcher [employer] EDUT Bridget Tai ds1 Jaun Fraser, RUDY GERIATRIC NURSING ASSISTANT pm1 Sony Morrison mw2 Melva Anand RN RN 5 Violette Preciado RN RN Malick Haley Jodi jw7
[2021-09-16] MEDS ORDERED: FENTANYL CITR 100 MCG/2 ML ONE (17:50)
--- NOTE | 2021-09-16 17:58 | RAD REPORT ---
EXAM DESCRIPTION: Linh Single View09/16/2021 4:32 pm CLINICAL HISTORY: Chest pain COMPARISON: 2020 FINDINGS: The lungs appear clear of acute infiltrate. The heart is mildly to moderately enlarged. P acemaker leads are in place. IMPRESSION: No acute abnormalities displayed
--- NOTE | 2021-09-16 19:04 | P.HP ---
Certification for Inpatient Patient admitted to: Observation With expected LOS: <2 Midnights Patient will require the following post-hospital care: None Practitioner: I am a practitioner with admitting privileges, knowledge of patient current condition, hospital course, and medical plan of care. Services: Services provided to patient in accordance with Admission requirements found in Title 42 Section 412.3 of the Code of Federal Regulations Patient History Date of Service: 09/16/21 Reason for admission: Chest Pain History of Present Illness: Patient is a 51-year-old male with history of CA status post 2 stents, CHF, A. fib, AAA, pacemaker, diabetes mellitus who presented to the ED with complaints of chest pain. He states the chest pain started 1 hour ago and was instructed to come to nearest ED immediately if he ever experience chest pain. His pain is associated with nausea and radiates to his left arm. Troponin and chest x-ray negative. EKG did not show any new ST changes. He was given nitroglycerin x2 with some relief, morphine, fentanyl, Zofran and states his pain has decreased. Patient states that he had an echo and cardiac catheterization about 3 months ago. He stated that he does have a few arteries that are being monitored because they are about 50% occluded. He sees Dr. Crow at [facility]. Will admit patient for observation. Allergies butorphanol tartrate [From Stadol] Allergy (Verified 01/28/20 21:04) Unknown gabapentin [From Neurontin] Allergy (Verified 01/28/20 21:04) Unknown metaxalone [From Skelaxin] Allergy (Verified 01/28/20 21:04) Unknown metoprolol Allergy (Verified 01/28/20 21:04) severe hypotension mirtazapine [From Remeron] Allergy (Verified 01/28/20 21:04) Itching/Hives/Rash quetiapine [From Seroquel] Allergy (Verified 01/28/20 21:04) Shortness of breath spironolactone Allergy (Verified 01/28/20 21:04) Shortness of breath tamsulosin [From Flomax] Allergy (Verified 01/28/20 21:04) Unknown tramadol Allergy (Verified 01/28/20 21:04) Shortness of breath trazodone Allergy (Verified 01/28/20 21:04) Shortness of breath Beta Blockers (sen Allergy (Uncoded 01/28/20 21:04) Unknown Home medications list reviewed: Yes Home Medications: Amiloride HCl 10 mg PO BID 05/11/19 Atorvastatin Calcium [Lipitor] 40 mg PO BEDTIME 05/11/19 Buprenorphine HCl/Naloxone HCl [Suboxone 8 mg-2 mg Sl Film] 1 tab SL BID 05/11/19 Docusate [Colace Cap*] 100 mg PO BIDP PRN 05/11/19 Magnesium Oxide [Magnesium] 400 mg PO DAILY 05/11/19 allopurinoL [Zyloprim*] 300 mg PO DAILY 05/11/19 clonazePAM [Klonopin*] 1 mg PO TID 05/11/19 Insulin Glargine,Hum.rec.anlog [Lantus] 30 units SQ DAILY 01/28/20 Folic Acid 1 tab PO DAILY 01/29/20 Bumetanide [Bumex] 1.5 mg PO BID 12/24/20 methocarbamoL [Robaxin*] 750 mg PO BID 12/24/20 ARIPiprazole [Aripiprazole] 15 mg PO DAILY 05/07/21 Bupropion HCl [Wellbutrin Xl] 1 tab PO DAILY 05/07/21 Cyanocobalamin [Vitamin B-12*] 1,000 mcg IM SEECOM 05/07/21 Desvenlafaxine Succinate [Desvenlafaxine Succinate ER] 2 pill PO DAILY 05/07/21 Dulaglutide [Trulicity] 3 mg SQ SEECOM 05/07/21 Empagliflozin [Jardiance] 1 tab PO DAILY 05/07/21 Metformin ER [Glucophage ER*] 1 tab PO DAILY 05/07/21 Nitroglycerin 1 tab SL PRN PRN 05/07/21 Pantoprazole [Protonix Tab*] 1 tab PO BID 05/07/21 Promethazine Tab [Phenergan*] 1 tab PO Q6H PRN 05/07/21 Ranolazine [Ranolazine ER] 2 tab PO BID 05/07/21 Rivaroxaban [Xarelto] 1 tab PO DAILY 05/07/21 dilTIAZem HCL [Diltiazem 24Hr ER (Xr)] 1 cap PO DAILY 05/07/21 Amox/Clavulanate [Augmentin 875-125 Tab] 875 mg PO BID #14 tab 05/08/21 - Past Medical/Surgical History Diabetic: Yes -: HTN -: Nephrolithiasis -: Obstructive sleep apnea -: Diabetes mellitus type 2 -: Coronary artery disease, stent x2 -: Abdominal aortic aneurysm (3.1 cm) -: Atrial fibrillation on chronic anticoagulation therapy -: Hyperlipidemia -: Chronic diastolic congestive heart failure -: Former smoker -: Chronic pain -: Pulmonary embolism -: Lithotripsy -: Heart catheterization, stent to the right RCA -: right bundle branch block -: pacemaker -: hernia repair Psychosocial/ Personal History: He is and lives at home with his . - Family History Father -: Heart disease, Hypertension, Lung disease Notes: at age 69 CHF, asthma, COPD Mother -: Hypertension Sister -: Hypertension Notes: brain aneurysm - Social History Smoking Status: Former smoker Alcohol use: No CD- Drugs: No Caffeine use: No Place of Residence: Home Review of Systems Cardiovascular: Chest Pain Gastrointestinal: Nausea Musculoskeletal: Arm Pain Physical Examination - Physical Exam General: Alert, In no apparent distress, Oriented x3 HEENT: Atraumatic, PERRLA, Mucous membr. moist/pink, EOMI, Sclerae nonicteric Neck: Supple, 2+ carotid pulse no bruit, No LAD, Without JVD or thyroid abnormality Respiratory: Clear to auscultation bilaterally, Normal air movement Cardiovascular: No edema, Regular rate/rhythm, Normal S1 S2 Gastrointestinal: Normal bowel sounds, No tenderness Musculoskeletal: No tenderness Integumentary: No rashes Neurological: Normal speech, Normal strength at 5/5 x4 extr, Normal tone, Normal affect - Studies Laboratory Data (last 24 hrs) 09/16/21 16:10: PT 17.4 H, INR 1.57 09/16/21 16:10: WBC 11.9 H, Hgb 12.5 L, Hct 38.3 L, Plt Count 335 09/16/21 16:10: Sodium 135 L, Potassium 3.7, BUN 15, Creatinine 1.53 H, Glucose 151 H, Magnesium 2.5 H, Total Bilirubin 0.4, AST 22, ALT 34, Alkaline Phosphatase 163 H Assessment and Plan - Problems (Diagnosis) (1) Chest pain, rule out acute myocardial infarction Current Visit: Yes Status: Acute (2) Atrial fibrillation with normal ventricular rate Current Visit: Yes Status: Chronic (3) Type 2 diabetes mellitus with insulin therapy Current Visit: Yes Status: Chronic (4) CHF (congestive heart failure) Current Visit: Yes Status: Chronic Qualifiers: Heart failure type: unspecified Heart failure chronicity: chronic Qualified Code(s): I50.9 - Heart failure, unspecified (5) History of CA (myocardial infarction) Current Visit: Yes Status: Chronic (6) Hyperlipidemia Onset Date: 03/17/17 Current Visit: Yes Status: Chronic Qualifiers: Hyperlipidemia type: mixed hyperlipidemia Qualified Code(s): E78.2 - Mixed hyperlipidemia (7) Coronary artery disease Onset Date: 05/24/16 Current Visit: Yes Status: Chronic Qualifiers: Coronary Disease-Associated Artery/Lesion type: unspecified vessel or lesion type [place] vs. transplanted heart: [place] heart Associated angina: with other forms of angina Qualified Code(s): I25.118 - Atherosclerotic heart disease of [place] coronary artery with other forms of angina pectoris (8) Hypertensive disorder, systemic arterial Onset Date: 03/10/17 Current Visit: Yes Status: Chronic - Plan -Patient is admitted frequently for episodes of chest pain and has a cardiac history. Troponin negative at this time. Will monitor every 6 hours x2. EKG and CXR without any acute changes. Cardiology consulted -Patient has A. fib and has a history of CA. He takes Xarelto on a daily basis. We will continue. -Had echo and cardiac catheterization 3 months ago at [facility] -Patient is an insulin-dependent type 2 diabetic. Mild sliding scale insulin with ACHS Accu-Cheks. -We will continue home medications as appropriate -Continue Xarelto for DVT prophylaxis -Full code Discharge Plan: Home Plan to discharge in: 24 Hours - Advance Directives Does patient have a Living Will: No Does patient have a Durable POA for Healthcare: No - Code Status/Comfort Care Code Status Assessed: Yes (Full) Critical Care: No Time Spent Managing Pts Care (In Minutes): 70
[2021-09-16] MEDS ORDERED: ACETAMINOPHEN 500 MG TAB PO PRN (20:37)
[2021-09-16] MEDS ORDERED: GLUCAGON 1 MG/VIAL IM PRN (20:37)
[2021-09-16] MEDS ORDERED: ZOLPIDEM TARTRATE 5 MG TABLET PO PRN (20:37)
[2021-09-16] MEDS ORDERED: D50W 25 GM/50 ML SYRINGE IV PRN (20:37)
[2021-09-16] MEDS ORDERED: ONDANSETRON 4 MG/2 ML VIAL IV PRN (20:37)
[2021-09-16] MEDS ORDERED: ASPIRIN 81 MG CHEWABLE TABLET PO ONE (20:37)
[2021-09-16] MEDS ORDERED: ATORVASTATIN 40 MG TAB PO SCH (21:00)
[2021-09-16] MEDS: MORPHINE 2 MG/ML SYR IV PRN (21:02)
[2021-09-16 23:16] VITALS: BMI 38.5
[2021-09-16] MEDS ORDERED: HYDROMORPHONE HCL 2 MG/ML inj IV ONE (23:41)
[2021-09-17 01:01] LABS: Urine Appearance Clear (Clear); Urine Bilirubin Negative (Negative); Urine Blood Negative (Negative); Urine Color Yellow (Yellow); Urine Glucose 3+ (Negative); Urine Protein Negative (Negative); Urine Specific Gravity 1.025 (1.005-1.030); Urine Urobilinogen 0.2 mg/dL (0.2-1.0); Urine pH 5.5 (5.0-7.0)
[2021-09-17 01:13] LABS: Urine Microscopic Reflex NO UMIC
[2021-09-17] MEDS: MORPHINE 2 MG/ML SYR IV PRN ×3 (03:02→12:59)
[2021-09-17 04:34] LABS: Thyroid Stimulating Hormone 1.85 uIU/mL (0.360-3.740)
[2021-09-17] MEDS: INSULIN -REGULAR HUMAN 50 UNIT/0.5 ML ML SQ SCH ×3 (05:32→11:29)
[2021-09-17] MEDS ORDERED: INFLUENZA VACCINE (for 6+ mo) 0.5 ML DOSE IMVAC ONE (08:00)
[2021-09-17 08:48] VITALS: O2SAT 96
[2021-09-17] MEDS ORDERED: RIVAROXABAN 20 MG TABLET PO SCH (09:00)
--- NOTE | 2021-09-17 11:39 | RAD REPORT ---
EXAM DESCRIPTION: CTAbdomen Pelvis Wo Contrast - 09/17/2021 11:21 am CLINICAL HISTORY: Right flank pain. COMPARISON: Abdomen Pelvis Wo Contrast dated 05/06/2021; Stone Protocol dated 11/29/2017; Stone Prot ocol dated 07/07/2017; Abdomen Pelvis Wo Contrast dated 07/02/2017 TECHNIQUE: CT of the abdomen and pelvis was performed. All CT scans are performed using dose optimization technique as appropriate and may include automated exposure control or mA/KV adjustment according to patient size. FINDINGS: Lower chest: Pacemaker leads. Coronary artery calcifications and/or stent. Trace pericardi al effusion. Liver: No acute abnormality or suspicious lesions. Biliary: Cholecystectomy. Stomach: No significant focal abnormality. Duodenum: No significant focal abnormality. Pancreas: No significant abnormality. Spleen: No significant abnormality. Adrenal: No suspicious lesions. Kidney/ureter: No hydronephrosis. No renal calculi. Too small to characterize low-density lesion in t he interpolar aspect of the left kidney. Retroperitoneum: No retroperitoneal adenopathy. Vascular: No aneurysm. Ectasia of the infrarenal abdominal aorta. Bowel: Normal appendix. No bowel obstruction. Diverticulosis without diverticulitis.. Peritoneum: No ascites or free air. Bladder: Grossly unremarkable. Reproductive: No adnexal masses. Bones: No acute fracture. Other: n/a IMPRESSION: No acute intra-abdominal or pelvic finding. No urinary tract calculi identified. Normal appendix.
[2021-09-17 17:24] VITALS: BP 113/64; TEMP 97.8
--- NOTE | 2021-09-17 17:33 | P.DS ---
Admission Date: 09/16/21 Discharge Date: 09/17/21 Disposition: ROUTINE DISCHARGE Discharge Condition: FAIR Reason for Admission: Chest Pain - Problems (1) Atypical chest pain Onset Date: 09/16/16 Status: Acute (2) Coronary artery disease Onset Date: 05/24/16 Status: Chronic Qualifiers: Coronary Disease-Associated Artery/Lesion type: unspecified vessel or lesion type [place] vs. transplanted heart: [place] heart Associated angina: with other forms of angina Qualified Code(s): I25.118 - Atherosclerotic heart disease of [place] coronary artery with other forms of angina pectoris (3) Diabetes mellitus Onset Date: 09/16/16 Status: Chronic Qualifiers: (4) History of DE (myocardial infarction) Status: Chronic Brief History of Present Illness: Patient is a 51-year-old male with history of DE status post 2 stents, CHF, A. fib, AAA, pacemaker, diabetes mellitus who presented to the ED with complaints of chest pain. He states the chest pain started 1 hour ago and was instructed to come to nearest ED immediately if he ever experience chest pain. His pain is associated with nausea and radiates to his left arm. Troponin and chest x-ray negative. EKG did not show any new ST changes. He was given nitroglycerin x2 with some relief, morphine, fentanyl, Zofran and states his pain has decreased. Patient states that he had an echo and cardiac catheterization about 3 months ago. He stated that he does have a few arteries that are being monitored because they are about 50% occluded. He sees Dr. Crow at [facility]. Patient placed under observation for further management. Hospital Course: Troponin trended negative. Patient was complaining of constant lingering pain. EKG unremarkable. Patient had a recent stress test which was negative. ACS ruled out. Vitals have been stable. He was seen and evaluated by cardiology who recommended discharge for outpatient stress test. Vital Signs/Physical Exam: Temp Pulse Resp BP Pulse Ox 97.8 F 65 16 113/64 94 09/17/21 16:00 09/17/21 16:00 09/17/21 16:00 09/17/21 16:00 09/17/21 16:00 General: Alert, In no apparent distress, Oriented x3 HEENT: Mucous membr. moist/pink Neck: JVD not distended Respiratory: Clear to auscultation bilaterally, Normal air movement Cardiovascular: No edema, Regular rate/rhythm, Normal S1 S2 Gastrointestinal: Normal bowel sounds, Soft and benign, Non-distended, No tenderness Musculoskeletal: No swelling Integumentary: No rashes, No cyanosis Neurological: Normal strength at 5/5 x4 extr Laboratory Data at Discharge: WBC 11.9 K/uL (4.3-10.9) H 09/16/21 16:10 Hgb 12.5 g/dL (13.6-17.9) L 09/16/21 16:10 Hct 38.3 % (39.6-49.0) L 09/16/21 16:10 Plt Count 335 K/uL (152-406) 09/16/21 16:10 PT 17.4 SECONDS (9.5-12.5) H 09/16/21 16:10 INR 1.57 09/16/21 16:10 Sodium 135 mmol/L (136-145) L 09/16/21 16:10 Potassium 3.7 mmol/L (3.5-5.1) 09/16/21 16:10 BUN 15 mg/dL (7-18) 09/16/21 16:10 Creatinine 1.53 mg/dL (0.55-1.3) H 09/16/21 16:10 Glucose 151 mg/dL (74-106) H 09/16/21 16:10 Magnesium 2.5 mg/dL (1.8-2.4) H 09/16/21 16:10 Total Bilirubin 0.4 mg/dL (0.2-1.0) 09/16/21 16:10 AST 22 U/L (15-37) 09/16/21 16:10 ALT 34 U/L (12-78) 09/16/21 16:10 Alkaline Phosphatase 163 U/L (45-117) H 09/16/21 16:10 Triglycerides 148 mg/dL (<150) 09/17/21 03:15 Cholesterol 136 mg/dL (<200) 09/17/21 03:15 HDL Cholesterol 38 mg/dL (40-60) L 09/17/21 03:15 Cholesterol/HDL Ratio 3.58 09/17/21 03:15 Home Medications: Amiloride HCl 2 tab PO BID 05/11/19 Atorvastatin Calcium [Lipitor] 40 mg PO BEDTIME 05/11/19 allopurinoL [Zyloprim*] 1 tab PO DAILY 05/11/19 clonazePAM [Klonopin*] 1 mg PO TID PRN 05/11/19 Bumetanide [Bumex] 1.5 mg PO BID 12/24/20 ARIPiprazole [Aripiprazole] 15 mg PO DAILY 05/07/21 Bupropion HCl [Wellbutrin Xl] 1 tab PO DAILY 05/07/21 Desvenlafaxine Succinate [Desvenlafaxine Succinate ER] 2 pill PO DAILY 05/07/21 Dulaglutide [Trulicity] 3 mg SQ SEECOM 05/07/21 Empagliflozin [Jardiance] 1 tab PO DAILY 05/07/21 Metformin ER [Glucophage ER*] 1 tab PO DAILY 05/07/21 Nitroglycerin 0.4 mg SL PRN PRN 05/07/21 Pantoprazole [Protonix Tab*] 1 tab PO BID 05/07/21 Promethazine Tab [Phenergan*] 1 tab PO PRN PRN 05/07/21 Ranolazine [Ranolazine ER] 2 tab PO BID 05/07/21 dilTIAZem HCL [Diltiazem 24Hr ER (Xr)] 1 cap PO DAILY 05/07/21 Aspirin [Aspirin EC] 81 mg PO DAILY #30 tablet. 09/17/21 Isosorbide Mononitrate [Isosorbide Mononitrate ER] 0.5 tab PO DAILY 09/17/21 Potassium Chloride 75 ml PO BID 09/17/21 New Medications: Aspirin [Aspirin EC] 81 mg PO DAILY #30 tablet. 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
--- NOTE | 2021-09-18 12:38 | EKG ---
Test Date: 2021-09-16 Test Time: 15:50:33 Brass Finisher: ADRIEL MEASUREMENT RESULTS: Intervals: Rate: 73 AL: 196 QRSD: 120 QT: 418 QTc: 460 Aguila: P: 22 AL: 196 QRS: -48 T: 32 INTERPRETIVE STATEMENTS: Normal sinus rhythm Left axis deviation RSR' or QR pattern in V1 suggests right ventricular conduction delay Left ventricular hypertrophy with QRS widening Inferior infarct, age undetermined Anterolateral infarct, age undetermined Abnormal ECG Compared to ECG 05/06/2021 20:19:57 Left-axis deviation now present RSR' in V1 or V2 now present First degree AV block no longer present Myocardial infarct finding still present Electronically Signed On 09-18-21 12:33:38 CDT by Ole Tesfaye
--- NOTE | 2021-09-18 13:21 | CON ---
Date of Consultation: 09/17/[address] Mooney on 09/16/2021. I saw the patient on 09/17/2021. Reason For Consultation: Chest pain. History Of Present Illness: Mr. Nelson is 51. For somebody his age has had an extensive past medica l history. He comes in with mid-epigastric pain that has been going on for about 2-3 days. Has had a recent stress test few months ago that was negative. He had a normal catheterization few years ago as well. He does have a history of pulmonary embolus, atrial fibrillation, pacemaker, congestive he art failure, anemia, anxiety, AAA, and gastroesophageal reflux disease. So far, his EKG is unremarka ble. CT of the abdomen and pelvis was negative. Chest x-ray was negative. Troponin is negative. W gayla count was 11,000. Creatinine is 1.53. Continues to have mid-epigastric pain. His pain is not exertional. No nausea, vomiting, diaphoresis, PND, orthopnea, pedal edema, palpitations, or syncope. Past Medical History: As stated above. Allergies: HE IS ALLERGIC TO FLOMAX, GABAPENTIN, AND METOPROLOL. Social History: Negative. Family History: Negative. Review of Systems: Negative. Medications: At home include aspirin, amiloride, Lipitor, Bumex, Trulicity, Wellbutrin, Imdur, Jardi ance, metformin, Protonix, Ranexa, allopurinol, Klonopin, and diltiazem. Physical Examination: General: Pleasant. No acute distress. Vital Signs: Stable. Afebrile. Examination was done by Dr. Mooney and was unremarkable. I did not examine the patient myself. Diagnostic Data: As stated earlier. Impression And Plan: Atypical chest pain with negative chest x-ray, negative EKG, negative troponin, negative BNP. He had a recent negative stress test, negative catheterization in the past. I think he needs to have another outpatient stress test, which we can arrange. I think he needs to be on a p roton pump inhibitor. I think his symptoms sound more likely gastric in origin. His other problems are very extensive and he is on the right therapy for that. He has had a history of PE and atrial fi brillation that he is not taking any blood thinners for now except with aspirin. He has a history of dyslipidemia for which he takes Lipitor. He has diabetes for which he takes Trulicity. He has a hi story of chronic diastolic congestive heart failure for which he takes Bumex. I will continue his pr esent regimen as is. Send him home. Put him on proton pump inhibitor. Arrange for outpatient stres s test. CYNTHIA/CHELSI Voice ID: [id number] Report ID: [id number]
== END 2021-09-17 18:08 | disposition home or self-care (01) ==
LOC: ER 15:33 → ERHOLD 19:37 → 2ND 19:44
PROVIDERS: ADMIT Internal Medicine; ATTEND Internal Medicine
DX: R07.89 Other chest pain (principal); I25.118 Atherosclerotic heart disease of native coronary artery with other forms of angina pectoris; I48.91 Unspecified atrial fibrillation; I11.0 Hypertensive heart disease with heart failure; I50.32 Chronic diastolic (congestive) heart failure; D64.9 Anemia, unspecified; I45.10 Unspecified right bundle-branch block; K21.9 Gastro-esophageal reflux disease without esophagitis; E11.9 Type 2 diabetes mellitus without complications; J44.9 Chronic obstructive pulmonary disease, unspecified; E78.5 Hyperlipidemia, unspecified; I71.4 Abdominal aortic aneurysm, without rupture; F41.9 Anxiety disorder, unspecified; G47.33 Obstructive sleep apnea (adult) (pediatric); G89.29 Other chronic pain; I25.2 Old myocardial infarction; Z87.891 Personal history of nicotine dependence; Z95.0 Presence of cardiac pacemaker; Z95.5 Presence of coronary angioplasty implant and graft; Z86.711 Personal history of pulmonary embolism; Z79.01 Long term (current) use of anticoagulants; Z79.84 Long term (current) use of oral hypoglycemic drugs; Z79.4 Long term (current) use of insulin; Z79.82 Long term (current) use of aspirin; Z79.899 Other long term (current) drug therapy; Z88.8 Allergy status to other drugs, medicaments and biological substances; Z88.6 Allergy status to analgesic agent; Z20.822 Contact with and (suspected) exposure to COVID-19; Z82.49 Family history of ischemic heart disease and other diseases of the circulatory system
CPT/HCPCS: 93005; 85025; 80048; 36415; 83735; 85610; 80061; 82947 ×3; 80076; 84443; 81003; 84484 ×3; 84439; 83880; 74176; 71045; 96375; 96374; 99285; U0003; J3010; J2270 ×4; J2405; G0378 ×3

== ENCOUNTER 2022-11-25 15:36 | Emergency (ER) | payer OTHER ==
--- OUTSIDE RECORDS SUMMARY | 2022-11-25 16:36 | XMS REPORT | Continuity of Care Document ---
:1970 Author Organization [facility] t Address [address] [facility] [address] [place] [address] Care Team Providers Name Role Phone Madelaine PHILLIP, Mark Primary Care Physician ROBBIN GRIFFITHS Attending Clinician Unavailable FLORENCE HERRERA Attending Clinician Unavailable RYDER PEMBERTON Attending Clinician Unavailable SAMRA GIBBS Attending Clinician Unavailable Doctor Unassigned, Katie Attending Clinician Unavailable HERMILA LESTER Attending Clinician Unavailable KIESHA KILGORE Attending Clinician Unavailable Sindy PHILLIP, Krystina Breaux Attending Clinician [phone] REEVES, SOCORRO S Attending Clinician Unavailable Reeves PAC, Socorro S Attending Clinician Juan MORFIN, Miles Payne Attending Clinician Unavailable Bernie PHILLIP, Samra Attending Clinician JOSE MARTIN REECE Attending Clinician Unavailable Nando PHILLIP, Naty Attending Clinician Jose Martin Reece MD Attending Clinician Po, [facility] Main Attending Clinician Unavailable Robert PHILLIP, Zhen Attending Clinician KRYSTINA ADKINS Attending Clinician Unavailable Aye PHILLIP, Robbin Attending Clinician 2, [facility] Infusion Chair Attending Clinician Unavailable Lupe PHILLIP, Cecilio Payne Attending Clinician [phone] Lakesha MORFIN, Fidel Attending Clinician Unavailable STACI ROLLINS Attending Clinician Unavailable Unknown, Attending Attending Clinician Unavailable Ayo PHILLIP, Staci Attending Clinician Only, Ang Db Test Attending Clinician Unavailable Lab, Ang - Db Attending Clinician Unavailable ZHEN JONES Attending Clinician Unavailable Alvin MORFIN, Angelique Arroyo Attending Clinician Unavailable THADDEUS INTERIANO Attending Clinician Unavailable Harry West MD Attending Clinician Thaddeus Interiano MD Attending Clinician CHIQUIS HELMS Attending Clinician Unavailable Chiquis Helms MD Attending Clinician 2, [facility] Attending Clinician Unavailable Vianca Vincent MD Attending Clinician [phone] Antionette Grissom DO Attending Clinician Niecy PHILLIP, Ryder Attending Clinician Noman PHILLIP, David Landa Attending Clinician [phone] DAVID AYOUB Attending Clinician Unavailable Urszula Saravia Attending Clinician Unavailable Parish PHILLIP, Al Attending Clinician Vincent DE LOS SANTOS, Renate Pickens Attending Clinician Draw, [facility] Attending Clinician Unavailable RENATE FLORIAN Attending Clinician Unavailable CECILIO ANDRADE Attending Clinician Unavailable Lulú Lancaster MD Attending Clinician Kalyn INTERNAL MEDICINE PHYSICIAN, Nara Attending Clinician Leopoldo NORIEGA, Sherri Attending Clinician Maryole INTERNAL MEDICINE PHYSICIAN, Nima Victoria Attending Clinician [phone] KURT NATARAJAN Attending Clinician Unavailable Kurt Natarajan MD Attending Clinician Yifan Romero MD Attending Clinician URSZULA PATEL Attending Clinician Unavailable [facility] Attending Clinician Unavailable Wilder MORFIN, Clemencia Attending Clinician Unavailable LULÚ LANCASTER Attending Clinician Unavailable Jonathan INTERNAL MEDICINE PHYSICIAN, Valente Hennessy Attending Clinician VALENTE CASTILLO Attending Clinician Unavailable NARA SCHUSTER Attending Clinician Unavailable MARY MADDOX Attending Clinician Unavailable Ebrahimomo INTERNAL MEDICINE PHYSICIAN, Mary Attending Clinician Devante DE LOS SANTOS, Phan Attending Clinician PHAN JUARES Attending Clinician Unavailable FIDEL WEBB Attending Clinician Unavailable Practitioner, Heart Failure Nurse Attending Clinician UnaAL Wetzel Attending Clinician Unavailable Diane MORFIN, Loli Vaughn Attending Clinician Alexander Reardon MD Attending Clinician Josseline PHILLIP, Paresh Grimm Attending Clinician PARESH CONDE Attending Clinician Lilian Ho Franklin MD Attending Clinician [phone] HO HOGUE Attending Clinician Unavailable Ibikunle INTERNAL MEDICINE PHYSICIAN, Folusho F Attending Clinician Ioana Mccarty MD Attending Clinician Nick Palomino MD Attending Clinician MARYCALVIN MORRISONERIN VICTORIA Attending Clinician Unavailable Armand Mahoney DO Attending Clinician 1, [facility] Attending Clinician Unavailable ANNABELLABANDAR Attending Clinician Unavailable Wali Kong MD Attending Clinician Debbi Carty MD Attending Clinician Nurse, Pcp Anticoag Attending Clinician Unavailable MARYCHUY HONG Attending Clinician Unavailable Robin PHILLIP, Rocio Attending Clinician Simi, Remote Device Check At Home - Attending Clinician Unava ilable ROCIO ORTIZ Attending Clinician Unavailable Tech, [facility] Cardio Vascular Attending Clinician Unavailable Jennifer Johns MD Attending Clinician [phone] Nurse, Vtc Anticoag Attending Clinician Unavailable JENNIFER JOHNS Attending Clinician Unavailable VLADIMIR DUKE Attending Clinician Unavailable Sanna Xiao MD Attending Clinician 1, [facility] Infusion Chair Attending Clinician Unavailable Rebeca Cabrera MD Attending Clinician 1, [facility] Nurse Attending Clinician Unavailable Gaurav Wang DO Attending Clinician Amisha Toth DO Attending Clinician Peter PHILLIP, Akilah Dillon Attending Clinician [phone] REBECA GOODWIN Attending Clinician Unavailable Outpt-Simi, Pacemaker/Icd Attending Clinician Unavailable MAX AGUIAR Attending Clinician Unavailable MAX AGUIAR Attending Clinician Unavailable Max Aguiar MD Attending Clinician Guerline BARRON Attending Clinician Unavailable Guerline Pang Attending Clinician Ilan MORFIN, Catherine Acosta Attending Clinician Unavailable Maya Charles MD Attending Clinician Chiquis Mcadams MD Attending Clinician Wallace Lea MD Attending Clinician HAFSA MELVIN Attending Clinician Unavailable Drever SPEECH CORRECTION CONSULTANT, Hafsa G Attending Clinician Trae INTERNAL MEDICINE PHYSICIAN, Lissa R Attending Clinician Clayton PHILLIP, Han Silva Attending Clinician Pablito PHILLIP, Summer Lee Attending Clinician Filipe PHILLIP, Kaitlin Sewell Attending Clinician MAYA CHARLES Attending Clinician Unavailable Damon MÁRQUEZ, Bryan Payne Attending Clinician Dedrick PHILLIP, Davy Attending Clinician Outpt-Simi, Ccl Attending Clinician Unavailable Jeremy PHILLIP, Dagoberto Calderon Attending Clinician Genaro Glasgow CRNA Attending Clinician Brigida ASSISTANT GOLF PROFESSIONAL, Evan Hennessy Attending Clinician Cale Silverman Attending Clinician Vls-Lab Attending Clinician Unavailable Silvia Shaffer MD Attending Clinician Sundar Krueger Attending Clinician Moe PHILLIP, Ciara Chaney Attending Clinician Unavailable Ernesto Harden MD Attending Clinician Karey Zuleta Attending Clinician Geronimo Dupont Attending Clinician Agustin Lopez Attending Clinician Rachel Platt Attending Clinician Fei Partida Attending Clinician Kiesha Roberts Attending Clinician HERMILA LESTER Admitting Clinician Unavailable SOCORRO REEVES Admitting Clinician Unavailable JOSE MARTIN REECE Admitting Clinician Unavailable Jose Martin Reece MD Admitting Clinician THADDEUS INTERIANO Admitting Clinician Unavailable Thaddeus Interiano MD Admitting Clinician ANTIONETTE GRISSOM Admitting Clinician Unavailable Ron ELY, Antionette Admitting Clinician RYDER PEMBERTON Admitting Clinician Unavailable YIFAN ROMERO Admitting Clinician Unavailable Yifan Romero MD Admitting Clinician Alexander Reardon MD Admitting Clinician ALEXANDER REARDON Admitting Clinician Unavailable CECILIO ANDRADE Admitting Clinician Unavailable Peter PHILLIP, Akilah Dillon Admitting Clinician [phone] Guerline BARRON Admitting Clinician Unavailable Maya Charles MD Admitting Clinician Wallace Lea MD Admitting Clinician HAFSA MELVIN Admitting Clinician Unavailable MAYA CHARLES Admitting Clinician Unavailable Geronimo Dupont Admitting Clinician Kiesha Robetrs Admitting Clinician Payers Payer Name Policy Type Policy Number Effective Date Expiration Date [facility] [id number] 2017 CHOICE 00:00:00 [employer] MCARE [id number] 2022 ADV CHOICE PPO 00:00:00 [employer] [facility] [id number] 2022 HEALTH MEDICARE 00:00:00 [employer] [id number] 2022 BEHAVIORAL 00:00:00 [employer] MEDICARE PART A \\T\\ [id number] 2018 B 00:00:00 [employer] [id number] 2021 MEDICAL CONDITIONS 00:00:00 [facility] [id number] 2020 00:00:00 Problems Condition Condition Condition Status Onset Resolution Last Treating Co mments Source Name Details Category Date Date Treatment Clinician Date Chest pain Chest pain Disease Active U nivers at rest at rest 5-06 ity of 00:00: [place] [address] Medical Branch Nausea and Nausea and Disease Active U nivers vomiting vomiting 4-12 ity of in adult in adult 00:00: [place] [address] Medical Branch Gastroesop Gastroesop Disease Active U nivers hageal hageal 4-12 ity of reflux reflux 00:00: [place] disease disease 00 Medical without without Branch esophagiti esophagiti s s Acute Acute Disease Active Univers chest pain chest pain 1-16 it y of 00:00: [place] [facility] Chronic Chronic Disease Active 2021-06 Univers kidney kidney 2-29 ity of disease disease 00:00: [place] (CKD) (CKD) 00 Medical stage stage Branch G3a/A1, G3a/A1, moderately moderately decreased decreased glomerular glomerular filtration filtration rate (GFR) rate (GFR) between between 45-59 45-59 mL/min/1.7 mL/min/1.7 3 square 3 square meter and meter and albuminuri albuminuri a a creatinine creatinine ratio less ratio less than 30 than 30 mg/g mg/g Chronic Chronic Disease Active 2021-06 Univers atrial atrial 2-29 ity of fibrillati fibr[place] Chest Chest Disease Active 2021-06 Univers pain, pain, 2-26 ity of unspecifie unspecifie [place] type d type 00 [facility] Obesity Obesity Disease Active Univers (BMI (BMI 3-20 ity of 30-39.9) 30-39.9) 00:00: [place] 00 Medical Branch Status Status Disease Active 2020-06 Univers post post 1-18 ity of cholecyste cholecyste [place] ct[place] ctomy 00 [facility] Chest pain Chest pain Disease Active U nivers 9-07 ity of 00:00: [place] [facility] 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 [place] sm 00 [facility] [place] High serum High serum Disease Active U nivers aldosteron aldosteron 5-19 it y of e e 00:00: [place] [facility] 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 [place] [facility] History of History of Disease Active U nivers pulmonary pulmonary 4-09 ity of embolism embolism 00:00: [place] [facility] Antiphosph Antiphosph Disease Active 2019-06 U nivers olipid olipid 2-08 ity of syndrome syndrome 00:00: [place] 00 Medical Branch SOB SOB Disease Active 2018-06 Univers (shortness (shortness 2-13 it y of of breath) of breath[place] Pacemaker Pacemaker Disease Active 2018-06 Uni vers 1-11 ity of 00:00: [place] 00 Medical Branch Bradycardi Bradycardi Disease Active U nivers a a 4-16 ity of 00:00: [place] [facility] Congestive Congestive Disease Active 2018- U nivers heart heart 3-11 ity of failure failure 00:00: [place] 00 Medical Branch Volume Volume Disease Active Univers overload overload 3-11 ity of 00:00: [place] [facility] Anticoagul Anticoagul Disease Active U [...] of placement placement 00:00[place] Medical implantabl implantabl Br anch [...] 00 Medical Branch Pulmonary Pulmonary Disease Active Uni vers emboli emboli 5-14 ity of 00:00: [place] 00 Medical Branch Severe Severe Disease Active Methodi [...] Added automatic ally from request for surgery [id number] Syncope Syncope Disease Active 2016-06 Univers 0-10 ity of 00:00: [place] 00 Medical Branch Hypokalemi Hypokalemi Disease Active U nivers a a 5-01 ity of 00:00: [place] 00 Medical Branch (HFpEF) (HFpEF) Disease Active Univers heart heart 4-09 ity of failure failure 00:00: [place] with with 00 Medical preserved preserved Bran ch ejection ejection fraction fraction Anxiety Anxiety Disease Active Univers 3-29 ity of 00:00: [place] 00 Medical Branch SCHILLING SCHILLING Disease Active Univers (dyspnea (dyspnea 3-27 ity of on on 00:00: [place] exertion) exertion) [address] [facility] Branch Precordial Precordial Disease Active U [...] 00:00: [place] involving involving 00 Medi marium [place] Branch coronary coronary artery of artery of [place] heart heart without without angina angina pectoris pectoris DE DE Disease Active 2015-06 Univers (myocardia (myocardia 2-21 [...] on on 00:00: [place] 00 Medical Branch 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 2-21 ity of disease disease 00:00: [place] involving involving 00 Medi marium [place] Branch coronary coronary artery of artery of [place] heart heart without without angina angina pectoris pectoris CHEST PAIN CHEST Diagnosis Active 2015-062016-10-01 [facility] PAIN 1- 15:12:00 l Active 00:00: [place] 05/17/2016 00 [facility] ACS, CHEST ACS, Diagnosis Active 2015-062016-10-01 [facility] PAIN CHEST PAIN 1- 15:12:00 l Active 00:00: [place] 05/05/2016 [facility] KIDNEY KIDNEY Diagnosis Active 2015-062016-10-01 Me moria STONES STONES 1- 15:13:00 l Active 00:00: [place] 04/25/2016 [facility] KIDNEY KIDNEY Diagnosis Active 2016-03-02 Me moria STONE STONE - 07:18:00 l Active 00:00: [place] 03/02/2016 [facility] PYELONEPHR PYELONEPH Diagnosis Active 2016-02-17 [facility] ITIS RITIS 02-16 08:00:00 l Active 00:00: [place] 02/17/2016 [facility] Acute Acute Disease Active [facility] chest pain chest pain 01-18 [place] k[facility] 00:00: Medical 00 Center Chest Chest Disease Active [facility] pain, pain, 12-25 [facility] unspecifie unspecifie 00:00: Me dical d type d type 00 Center Essential Essential Disease Recurre [facility] hypertensi hypertensi nce 12-18 [place] on with on with 00:00: Medical goal blood goal blood 00 Ce nter pressure pressure less than less than 130/80 130/80 GREGORIO on GREGORIO on Disease Recurre [facility] CPAP CPAP nce 12-18 [facility] 00:[facility]: Medical 00 Center Diastolic Diastolic Disease Rec[facility]re [facility] dysfunctio dysfunctio nce 12-18 [place] k[place] n, Grade 1 n, Grade 1 00:00: Me dical 00 Center 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 in 00:00: Medi marium obese obese 00 Center STEMI (ST STEMI (ST Disease Recurre [facility] elevation elevation nce 12-04 [facility] myocardial myocardial 00:00: Me dical infarction infarction 00 Ce nter ) ) Abdominal Abdominal Problem Resolve 2016-05-20 [facility] aortic aortic d 02:45:43 l aneurysm aneurysm Fly n (disorder) (disorder) Resolved Problem 05/20/2016 [facility] Diabetes Diabetes Problem Resolve 2016-05-20 [facility] mellitus mellitus d 02:45:43 l (disorder) (disorder) He rmann Resolved Problem 05/20/2016 [facility] Hyperchole Hyperchol Problem Resolve 2016-05-20 [facility] sterolemia esterolemi d 02:45:43 l (disorder) a Fly n (disorder) Resolved Problem 05/20/2016 [facility] Right Right Problem Resolve 2016-05-20 Bc jae bundle bundle d 02:45:43 l branch branch Freddy block block (disorder) (disorder) Resolved Problem 05/20/2016 [facility] Sleep Sleep Problem Resolve 2016-05-20 Bc jae apnea apnea d 02:45:43 l (finding) (finding) Herm ca Resolved Problem 05/20/2016 [facility] Hypertensi Hypertens Problem Resolve 2016-05-20 Memoria ve rosetta d 02:45:43 l disorder, disorder, Herm ca systemic systemic arterial arterial (disorder) (disorder) Resolved Problem 05/20/2016 [facility] TUBULO-INT Diagnosis Active 2016-02-17 Mem[facility] ERSTITIAL TUBULO-INT 08:00:00 l NEPHRITIS, ERSTITIAL Her boykin NOT SPCF NEPHRITIS, NOT SPCF Active [facility] CHEST CHEST Diagnosis Active 2016-10-01 Mem oria PAIN, PAIN, 15:12:00 l UNSPECIFIE UNSPECIFIE He ca D D Active [facility] History of History of Disease Active Overview : Univers alcohol alcohol Formattin ity o f abuse abuse g of this [place] note Medical might be Branch different from the original. Sober for 16 years History of Past Illness Condition Condition Condition Status Onset Resolution Last Treating Co mments Source Name Details Category Date Date Treatment Clinician Date Discharge Discharge Problem 2015-062016-05-20 2016-05-20 [facility] Diagnosis: Diagnosis: 07-17 02:45:43 02:45:43 l Chest pain Chest pain 06:00: He [facility] 05/17/2016 00 05/20/2016 [facility] Discharge Discharge Problem 2015-062016-04-28 2016-04-28 [facility] Diagnosis: Diagnosis: 06-25 04:09:27 04:09:27 l Flank pain Flank pain 05:00: He [facility] 04/25/2016 00 04/28/2016 [facility] Discharge Discharge Problem 2016-03-08 2016-03-08 [facility] Diagnosis: Diagnosis: 03-05 05:16:49 05:16:49 l Acute Acute 05:00: [place] chest pain chest pain 00 03/05/2016 03/08/2016 [facility] Discharge Discharge Problem 2016-03-05 2016-03-05 [facility] Diagnosis: Diagnosis: 03-02 01:19:04 01:19:04 l Renal Renal 05:00: [place] calculus calculus 00 03/02/2016 03/05/2016 [facility] Allergies, Adverse Reactions, Alerts Allergy Allergy Status Severity Reaction(s) Onset Inactive Treating Comm ents Source Name Type Date Date Clinician Quetiapi Propensi Active Other - See 2018-06 Involunt a Univers ne ty to comments 0-21 ry ity of Fumarate adverse 00:00: jerking [place] reaction 00 Medical s Branch QUETIAPI DRUG Active Med Other-Cmnt 2018-06 Univ ers NE INGREDI 0-21 ity of FUMARATE 00:00: [place] 00 Medical Branch Mirtazap Propensi Active Other - See Urinary Univers ine ty to comments 3-08 issues, ity of adverse 00:00: gaining [place] reaction 00 weightOth Medic al s er Branch reaction( s): Other (see comments) Urinary issues, gaining weight MIRTAZAP DRUG Active Other-Cmnt Univ ers INE INGREDI 3-08 ity of 00:00: [place] 00 Medical Branch gabapent DA Active [facility] in 07-03 Clear 00:00: [place] 00 [facility] Meperidi Propensi Active Unknown - Patient Un grayson ne ty to See comments 2-04 unsure ity of adverse 00:00: why [place] reaction 00 documente Medic al s d in Branch mrPatient unsure why documente d in mr Metaxalo Propensi Active Unknown - Flushed Un grayson ne ty to See comments 2-04 and over it y of adverse 00:00: sedationF [place] reaction 00 lushed Medical s and over Branch sedation Quetiapi Propensi Active Other - See akathisi a Univers ne ty to comments 2-04 akathisia ity o f adverse 00:00: [place] reaction 00 Medical s Branch MEPERIDI DRUG Active Other-Cmnt Univ ers NE INGREDI 2-04 ity of 00:00: [place] 00 Medical Branch METAXALO DRUG Active Other-Cmnt Univ ers NE INGREDI 2-04 ity of 00:00: [place] 00 Medical Branch QUETIAPI DRUG Active Other-Cmnt Univ ers NE INGREDI 2-04 ity of 00:00: [place] 00 Medical Branch Gabapent Propensi Active Other (See Flushed M ethodi in ty to Comments) 2-[address] adverse 00:00: sedation [facility] reaction 00 l s to drug Proprano Propensi Active Other (See Me thodi lol ty to Comments) 2- st adverse 00:00: [facility]osp[facility] reaction 00 l s to drug Quetiapi Propensi Active Other (See akathisia Methodi ne ty to Comments) 2- st adverse 00:00: [facility]osp[facility] reaction 00 l s to drug Metaxalo Propensi Active Other (See Flushed M ethodi ne ty to Comments) 2-[address] adverse 00:00: sedation [facility] reaction 00 l s to drug Butorpha Propensi Active Other (See tachycard Methodi nol ty to Comments) 2-[address] Tartrate adverse 00:00: [facility]osp[facility] reaction 00 l s to drug Tramadol Propensi Active Palpitations Methodi ty to 2- st adverse 00:00: [facility] reaction 00 l s to drug Acebutol Propensi Active Other (See All beta Methodi ol ty to Comments) 2- blockers st adverse 00:00: cause [facility] reaction 00 bradycard l s to ia drug Atenolol Propensi Active Other (See Me thodi ty to Comments) 2- st adverse 00:00: [facility] reaction 00 l s to drug Bisoprol Propensi Active Other (See Me thodi ol ty to Comments) 2- st adverse 00:00: [facility] reaction 00 l s to drug Carvedil Propensi Active Other (See Me thodi ol ty to Comments) 2- st adverse 00:00: [facility] reaction 00 l s to drug Meperidi Propensi Active Other (See Patient M ethodi ne ty to Comments) 2- unsure st adverse 00:00: why [facility] reaction 00 documente l s to d in mr drug Trazodon Propensi Active Other (See sweating Methodi e ty to Comments) 2- st adverse 00:00: [facility]osp[facility] reaction 00 l s to drug Tamsulos Propensi Active Other (See Dilation Methodi in ty to Comments) 2-[address] adverse 00:00: and [facility] reaction 00 couldn't l s to see drug Metoprol Propensi Active Other (See But does Methodi ol ty to Comments) 2-[address] adverse 00:00: for afib [facility]osp[facility] reaction 00 ??? l s to drug Adhesive Propensi Active Other - See 2016-06 Paper U nivers Tape-Gita ty to comments 06-24 tape only ity of icones adverse 00:00: !! Tears [place] reaction 00 skin.Othe Medic al s r Branch reaction( s): Other (see comments) Paper tape only !! Tears skin. ADHESIVE DRUG Active Other-Cmnt 2016-06 Univ ers TAPE-GITA 06-24 ity of ICONES 00:00: [place] 00 Medical Branch Spironol Propensi Active Other - See Breast U nivers actone ty to comments 03-18 tendernes ity o f adverse 00:00: sOther [place] reaction 00 reaction( Medic al s s): Other Branch (see comments) Breast tendernes s SPIRONOL DRUG Active Other-Cmnt Univ ers ACTONE INGREDI 03-18 ity of 00:00: [place] 00 Medical Branch Trazodon Propensi Active Other - See Hot U nivers e ty to comments 11-11 flashesOt ity o f adverse 00:00: her [place] reaction 00 reaction( Medic al s s): Other Branch (see comments) sweatings weatingHo t flashes TRAZODON DRUG Active Other-Cmnt Univ ers E INGREDI 11-11 ity of 00:00: [place] 00 Medical Branch Gabapent Propensi Active Other - See diaphore t Univers in ty to comments 1- icOther ity of adverse 00:00: reaction( [place] reaction 00 s): Other Medic al s (see Branch comments) Flushed and over sedationF lushed and over sedationd iaphoreti c GABAPENT DRUG Active Other-Cmnt Univ ers IN INGREDI 1- ity of 00:00: [place] 00 Medical Branch Tamsulos Propensi Active Other - See 2015-06 U nivers in Hcl ty to comments 2-21 ity of adverse 00:00: [place] reaction 00 Medical s Branch Butorpha Propensi Active Other - See 2015-06 tachycar d Univers nol ty to comments 2-21 ia ity of Tartrate adverse 00:00: [place] reaction 00 Medical s to Branch drug BUTORPHA DRUG Active Med Other-Cmnt 2015-06 Univ ers NOL INGREDI 2- ity of TARTRATE 00:00: [place] 00 Medical Branch TAMSULOS DRUG Active Other-Cmnt 2015-06 Univ ers IN HCL INGREDI 2- ity of 00:00: [place] 00 Medical Branch Tramadol Propensi Active Tachycard [facility] ty to 9-28 ia [facility] adverse 00:00: Medical reaction 00 Center s Beta-Blo Propensi Active Per [facility] ckers ty to 6-14 patient [facility] (Beta-Ad adverse 00:00: "heart Medical renergic reaction 00 rate Center Blocking s drop, Agts) lethargic , weak" Beta-Blo Propensi Active Other - See Per [...] St ckers ty to 6-14 patient [facility] (Beta-Ad adverse 00:00: "heart Medical renergic reaction 00 rate Center Blocking s drop, Agts) lethargic , weak" Tamsulos Propensi Active "too over [facility] in ty to 6-14 power" [facility] adverse 00:00: Medical reaction 00 Center s Butorpha Propensi Active "tachycar [facility] nol ty to 6-14 farzad" [facility] Tartrate adverse 00:00: Medical reaction 00 Center s Alfuzosi Propensi Active Unknown - 2014-06 Uni vers n ty to See comments 1-12 ity of adverse 00:00: [place] reaction 00 Medical s Branch ALFUZOSI DRUG Active Unknown-Cmnt 2014-06 Un grayson N INGREDI 1-12 ity of 00:00: [place] 00 Medical Branch Tamsulos Propensi Active Other - See Dilation Univers in ty to comments 3-10 of eyes ity of adverse 00:00: and [place] reaction 00 couldn't Medica l s see"too Branch over power"Dil ation of eyes and couldn't see"too over power" Tramadol Propensi Active Palpitations Tachyca rd Univers ty to 3-10 iaOther ity of adverse 00:00: reaction( [place] reaction 00 s): Other Medic al s to (see Branch drug comments) Tachycard iaTachyca rdiaTachy cardia TRAMADOL DRUG Active Med Unknown-Cmnt Un grayson INGREDI 3-10 ity of 00:00: [place] [facility] TAMSULOS DRUG Active Other-Cmnt Univ ers IN INGREDI 3-10 ity of 00:00: [address] tramadol DA Active [place] [facility] 3-10 Clear 00:00: [place] 00 [facility] butorpha DA Active [place] [facility] nol 3-10 Clear 00:00: Mer[place] 00 [facility] tamsulos DA Active [place] [facility] in 3-10 Clear 00:00: Meraz 00 [facility] Stadol Stadol Active [facility] [place] traMADol traMADol Active [facility] [place] beta beta Active Memoria blockers blockers l [place] Flomax Flomax Active [facility] [place] Family History Family Member Diagnosis Comments Start Date Stop Date Source Natural father Asthma [facility] Natural father CHF (congestive Unive rsity of heart failure) [facility] Natural father COPD (chronic Univers ity of obstructive [place] [facility] pulmonary disease) [place] Natural father High cholesterol Univ [facility] Natural father Hypertension [facility] Natural father Leukemia [facility] Natural father Heart disease [facility] Maternal Uncle Leukemia [facility] Natural mother High cholesterol [facility] Natural mother Hypertension Universi [facility] Paternal Cancer [facility] Social History Social Habit Start Date Stop Date Quantity Comments Source Gender identity [facility] Sexual orientation [facility] Exposure to 2022-11-03 2022-11-13 Not sure [facility] SARS-CoV-2 (event) 00:00:00 16:19:00 [facility] History SDOH Food 2022-10-29 2022-10-29 1 Univers ity of Worry 00:00:00 00:00:00 [facility] History SDOH Food 2022-10-29 2022-10-29 1 Univers ity of Scarcity 00:00:00 00:00:00 [place] [facility] History SDOH 2022-10-29 2022-10-29 2 University o f Transport Med 00:00:00 00:00:00 [place] [facility] History SDOH 2022-10-29 2022-10-29 2 University o f Transport Non-Med 00:00:00 00:00:00 [place] [facility] ed[facility] Cigarette 2022-01-08 2022-01-08 University of pack-years 00:00:00 00:00:00 [facility] Tobacco use and 2022-01-08 2022-01-08 Smokeless Universit y of exposure 00:00:00 00:00:00 tobacco non-user [facility] dical Branch Education 2020-09-28 2020-09-28 21 University of 00:00:00 00:00:00 [facility] History of Social 2018-05-10 2018-05-[address] function 00:00:00 00:00:00 Hospital Alcohol intake 2016-04-02 2016-04-[address] [facility] 00:00:00 00:00:00 non-drinker of Medical nter alcohol (finding) Tobacco Comment 2015-12-05 2015-12-05 [facility] 00:[facility]:00:00 years ago [facility] Cigarettes smoked 2015-12-05 2015-12-[address] [facility] current (pack per 00:00:00 00:00:00 [facility] Center day) - Reported History of tobacco 2014-06-26 Cigarette Smoker University of use 00:00:00 [facility] Sex Ass[birth year] At [birth year] [facility] 00:[facility] 00:[facility]00 [facility] Smoking Status Start Date Stop Date Source Never smoked tobacco [facility] Social History 2016-05-17 22:34:21 2016-05-17 22:34:21 [facility] Medications Ordered Filled Start Stop Current Ordering Indication Dosage Frequency Signature Comments Components Source Medication Medication Date Date Medication? Clinician (SIG) Name Name ondansetron 2022- No 4mg 4 mg, Slow Univers (ZOFRAN 5-11-14 IV Push, ity of (PF)) 23:45: 00:07 ONCE, 1 [place] injection 4 00 :00 dose, On Medi marium mg Wed Branch 11/13/22 at 1845, LIVIA ondansetron 2022-0 Yes [id number] 4mg Take 1 Univers 4 mg 5-24 tablet by ity of disintegrat 00:00: mouth [place] ing tablet 00 every 8 Medica l (eight) Branch hours as needed for Nausea and Vomiting (N/V). ondansetron 2022-0 Yes [id number] 4mg Take 1 Univers 4 mg 5-24 tablet by ity of disintegrat 00:00: mouth [place] ing tablet 00 every 8 Medica l (eight) Branch hours as needed for Nausea and Vomiting (N/V). ondansetron 2022-0 Yes [id number] 4mg Take 1 Univers 4 mg 5-24 tablet by ity of disintegrat 00:00: mouth [place] ing tablet 00 every 8 Medica l (eight) Branch hours as needed for Nausea and Vomiting (N/V). clonazePAM 2022-0 Yes [id number] Take 1 U nivers 1 mg tablet 5-23 pill PO in it y of 00:00: the AM, 1 [place] 00 PO in the Medical afternoon, Branch 1 pill PO in the evening. May take additional 1/2 pill as needed for acute anxiety. clonazePAM 2022-0 Yes [id number] Take 1 U nivers 1 mg tablet 5-23 pill PO in it y of 00:00: the AM, 1 [place] 00 PO in the Medical afternoon, Branch 1 pill PO in the evening. May take additional 1/2 pill as needed for acute anxiety. clonazePAM 2022-0 Yes [id number] Take 1 U nivers 1 mg tablet 5-23 pill PO in it y of 00:00: the AM, 1 [place] 00 PO in the Medical afternoon, Branch 1 pill PO in the evening. May take additional 1/2 pill as needed for acute anxiety. clonazePAM 2022-0 Yes [id number] Take 1 U nivers 1 mg tablet 5-23 pill PO in it y of 00:00: the AM, 1 [place] 00 PO in the Medical afternoon, Branch 1 pill PO in the evening. May take additional 1/2 pill as needed for acute anxiety. pyridoxine 2022-0 Yes Take by Univ ers HCl, 5-18 mouth ity of vitamin B6, 13:24: [place]. [place] (VITAMIN 39 Medical B-6 ORAL) Branch methocarbam 3-0 Yes 750mg Take 1 Uni vers ol 750 mg 5-18 tablet by ity o f tablet 13:24: mouth in [place] [address] the Medical morning Branch and 1 tablet in the evening. Cholecalcif 2023-0 Yes 2000U Take 1 Uni vers [place], 5-18 tablet by ity of Vitamin D3, 13:24: mouth in [place] 50 mcg 39 the Medical (,000 morning. Branch unit) tablet ZINC ORAL 3-0 Yes Take by Unive rs 5-18 mouth ity of 13:24: daily. [address] Branch COQ10, 2022-0 Yes Take by Univers UBIQUINOL, 5-18 mouth. ity of ORAL 13:24: [address] Branch pyridoxine 2022-0 Yes Take by Univ ers HCl, 5-18 mouth ity of vitamin B6, 13:24: daily. [place] (VITAMIN 39 Medical B-6 ORAL) Branch methocarbam 2022-0 Yes 750mg Take 1 Uni vers ol 750 mg 5-18 tablet by ity o f tablet 13:24: mouth in [address] Medical morning Branch and 1 tablet in the evening. Cholecalcif 2023-0 Yes 2000U Take 1 Uni vers [place], 5-18 tablet by ity of Vitamin D3, 13:24: mouth in [place] 50 mcg 39 the Medical (000 morning. Branch unit) tablet ZINC ORAL 2022-0 Yes Take by Unive rs 5-18 mouth ity of 13:24: daily. [address] Branch COQ10, 2022-0 Yes Take by Univers UBIQUINOL, 5-18 mouth. ity of ORAL 13:24: [address] Branch pyridoxine 3-0 Yes Take by Univ ers HCl, 5-18 mouth ity of vitamin B6, 13:24: daily. [place] (VITAMIN 39 Medical B-6 ORAL) Branch methocarbam 3-0 Yes 750mg Take 1 Uni vers ol 750 mg 5-18 tablet by ity o f tablet 13:24: mouth in [place] [address] the Medical morning Branch and 1 tablet in the evening. Cholecalcif 2023-0 Yes 2000U Take 1 Uni vers [place], 5-18 tablet by ity of Vitamin D3, 13:24: mouth in [place] 50 mcg 39 the Medical (2,000 morning. Branch unit) tablet ZINC ORAL 2022-0 Yes Take by Unive rs 5-18 mouth ity of 13:24: daily. [address] Branch COQ10, 2022-0 Yes Take by Univers UBIQUINOL, 5-18 mouth. ity of ORAL 13:24: [address] Branch pyridoxine 2022-0 Yes Take by Univ ers HCl, 5-18 mouth ity of vitamin B6, 13:24: daily. [place] (VITAMIN 39 Medical B-6 ORAL) Branch methocarbam 2022-0 Yes 750mg Take 1 Uni vers ol 750 mg 5-18 tablet by ity o f tablet 13:24: mouth in [place] [address] the Medical morning Branch and 1 tablet in the evening. Cholecalcif 3-0 Yes 2000U Take 1 Uni vers [place], 5-18 tablet by ity of Vitamin D3, 13:24: mouth in [place] 50 mcg 39 the [facility] (2,000 morning. Branch unit) tablet ZINC ORAL 2022-0 Yes Take by Unive rs 5-18 mouth ity of 13:24: daily. [address] Branch COQ10, 2022-0 Yes Take by Univers UBIQUINOL, 5-18 mouth. ity of ORAL 13:24: [address] Branch pyridoxine 2022-0 Yes Take by Univ ers HCl, 5-18 mouth ity of vitamin B6, 13:24: daily. [place] (VITAMIN 39 Medical B-6 ORAL) Branch methocarbam 2022-0 Yes 750mg Take 1 Uni vers ol 750 mg 5-18 tablet by ity o f tablet 13:24: mouth in [place] [address] the Medical morning Branch and 1 tablet in the evening. Cholecalcif 2023-0 Yes 2000U Take 1 Uni vers [place], 5-18 tablet by ity of Vitamin D3, 13:24: mouth in [place] 50 mcg 39 the Medical (2,000 morning. Branch unit) tablet ZINC ORAL 2022-0 Yes Take by Unive rs 5-18 mouth ity of 13:24: daily. [address] Branch COQ10, 2022-0 Yes Take by Univers UBIQUINOL, 5-18 mouth. ity of ORAL 13:24: [address] Branch pyridoxine 2022-0 Yes Take by Univ ers HCl, 5-18 mouth ity of vitamin B6, 13:24: [place]. [place] (VITAMIN 39 Medical B-6 ORAL) [place] methocarbam 2022-0 Yes 750mg Take 1 Uni vers ol 750 mg 5-18 tablet by ity o f tablet 13:24: mouth in [address] Medical morning Branch and 1 tablet in the evening. Cholecalcif 2023-0 Yes 2000U Take 1 Uni vers [place], 5-18 tablet by ity of Vitamin D3, 13:24: mouth in [place] 50 mcg 39 the Medical (2,000 morning. Branch unit) tablet ZINC ORAL 2022-0 Yes Take by Unive rs 5-18 mouth ity of 13:24: daily. [address] COQ10, 2022-0 Yes Take by Univers UBIQUINOL, 5-18 mouth. ity of ORAL 13:24: [address] pyridoxine 2022-0 Yes Take by Univ ers HCl, 5-18 mouth ity of vitamin B6, 13:24: daily. [facility] (VITAMIN 39 Medical B-6 ORAL) [place] methocarbam 2022-0 Yes 750mg Take 1 Uni vers ol 750 mg 5-18 tablet by ity o f tablet 13:24: mouth in [address] morning Branch and 1 tablet in the evening. Cholecalcif 2022-0 Yes 2000U Take 1 Uni vers [place], 5-18 tablet by ity of Vitamin D3, 13:24: mouth in [place] 50 mcg 39 the Medical (2,000 morning. Branch unit) tablet ZINC ORAL 2022-0 Yes Take by Unive rs 5-18 mouth ity of 13:24: daily. [address] COQ10, 2022-0 Yes Take by Univers UBIQUINOL, 5-18 mouth. ity of ORAL 13:24: [address] ARIPiprazol 0 Yes [id number] 15mg Take 1 Univers e 15 mg 5-18 tablet by ity of tablet 00:00: mouth in [place] [address] the Medical morning. Branch desvenlafax 2022-0 Yes [id number] 200mg Take 2 Univers ine 5-18 tablets by ity of succinate 00:00: mouth in [facility] (PRISTIQ) 00 [facility] 100 mg 24 morning. Branch hr tablet buPROPion 2022-0 Yes [id number] 150mg Take 1 U nivers XL 150 mg 5-18 tablet by ity o f 24 hr 00:00: mouth in [place] tablet 00 the Medical morning. Branch ARIPiprazol 3-0 Yes [id number] 15mg Take 1 Univers e 15 mg 5-18 tablet by ity of tablet 00:00: mouth in [place] 00 the Medical morning. Branch desvenlafax 2023-0 Yes [id number] 200mg Take 2 Univers ine 5-18 tablets by ity of succinate 00:00: [place] (PRISTIQ) 00 the Medical 100 mg 24 morning. Branch hr tablet buPROPion 3-0 Yes [id number] 150mg Take 1 U nivers XL 150 mg 5-18 tablet by ity o f 24 hr 00:00: mouth in [place] tablet 00 the Medical morning. Branch ARIPiprazol 3-0 Yes [id number] 15mg Take 1 Univers e 15 mg 5-18 tablet by ity of tablet 00:00: mouth in [place] 00 the Medical morning. Branch desvenlafax 3-0 Yes [id number] 200mg Take 2 Univers ine 5-18 tablets by ity of succinate 00:00: mouth in [facility] s (PRISTIQ) 00 the Medical 100 mg 24 morning. Branch hr tablet buPROPion 3-0 Yes [id number] 150mg Take 1 U nivers XL 150 mg 5-18 tablet by ity o f 24 hr 00:00: mouth in [place] tablet 00 the Medical morning. Branch ARIPiprazol 3-0 Yes [id number] 15mg Take 1 Univers e 15 mg 5-18 tablet by ity of tablet 00:00: mouth in [place] 00 the Medical morning. Branch desvenlafax 3-0 Yes [id number] 200mg Take 2 Univers ine 5-18 tablets by ity of succinate 00:00: [place] (PRISTIQ) 00 the Medical 100 mg 24 morning. Branch hr tablet buPROPion 2023-0 Yes [id number] 150mg Take 1 U nivers XL 150 mg 5-18 tablet by ity o f 24 hr 00:00: mouth in [place] tablet 00 the Medical morning. Branch ARIPiprazol 2023-0 Yes [id number] 15mg Take 1 Univers e 15 mg 5-18 tablet by ity of tablet 00:00: mouth in [place] 00 the Medical morning. Branch desvenlafax 2023-0 Yes [id number] 200mg Take 2 Univers ine 5-18 tablets by ity of succinate 00:00: [place] (PRISTIQ[place] 00 the Medical 100 mg 24 morning. [place] hr tablet buPROPion 3-0 Yes [id number] 150mg Take 1 U nivers XL 150 mg 5-18 tablet by ity o f 24 hr 00:00: mouth in [place] tablet 00 the Medical morning. [place] ARIPiprazol 2022-0 Yes [id number] 15mg Take 1 Univers e 15 mg 5-18 tablet by ity of tablet 00:00: mouth in [place] 00 the Medical morning. [place] desvenlafax 3-0 Yes [id number] 200mg Take 2 Univers ine 5-18 tablets by ity of succinate 00:00: [place] (PRISTIQ[place] 00 the Medical 100 mg 24 morning. [place] hr tablet buPROPion 2022-0 Yes [id number] 150mg Take 1 U nivers XL 150 mg 5-18 tablet by ity o f 24 hr 00:00: mouth in [place] tablet 00 the Medical morning. [place] ARIPiprazol 2022-0 Yes [id number] 15mg Take 1 Univers e 15 mg 5-18 tablet by ity of tablet 00:00: mouth in [place] 00 the Medical morning. [place] desvenlafax 2022-0 Yes [id number] 200mg Take 2 Univers ine 5-18 tablets by ity of succinate 00:00: [place] (PRISTIQ[place] 00 the Medical 100 mg 24 morning. [place] hr tablet buPROPion 2022-0 Yes [id number] 150mg Take 1 U nivers XL 150 mg 5-18 tablet by ity o f 24 hr 00:00: mouth in [place] tablet 00 the Medical morning. [place] acetaminoph 2022-0 2022- No 1000mg 1,000 mg, Univers en 10-31 Oral, ity of (TYLENOL) 16:00: 14:55 ONCE, 1 [place] tablet 00 :00 dose, On Medical 1,000 mg [place] Branch 10/31/22 at 1100, Routine ondansetron 2022-0 2022- No 4mg 4 mg, Slow Univers (ZOFRAN 10-31 IV Push, ity of (PF)) 15:00: 14:55 ONCE, 1 [place] injection 4 00 :00 dose, On Medi marium mg [place] Branch 10/31/22 at 1000, LIVIA nitroglycer 2022-0 Yes .4mg 0.4 mg, Uni vers in 10-31 Sublingual ity of (NITROSTAT) 14:47: , Q5MIN [place] sublingual 02 PRN, 3 Medical tablet 0.4 doses, Branch mg Starting on A[place] 10/31/22 at 0947, Until Discontinu ed, LIVIA, Chest pain [facility] 3 2022-0 Yes [id number] 3mg INJECT 1 Univers mg/0.5 mL 5-08 PEN ity of PnIj 00:00: DIRECTED [place] 00 WEEKLY. Medical Branch TRULICITY 3 2022-0 Yes [id number] 3mg INJECT 1 Univers mg/0.5 mL 5-08 PEN ity of PnIj 00:00: DIRECTED [place] 00 WEEKLY. Medical Branch TRULICITY 3 2022-0 Yes [id number] 3mg INJECT 1 Univers mg/0.5 mL 5-08 PEN ity of PnIj 00:00: DIRECTED [place] 00 WEEKLY. Medical Branch TRULICITY 3 2022-0 Yes [id number] 3mg INJECT 1 Univers mg/0.5 mL 5-08 PEN ity of PnIj 00:00: DIRECTED [place] 00 WEEKLY. Medical Branch TRULICITY 3 2022-0 Yes [id number] 3mg INJECT 1 Univers mg/0.5 mL 5-08 PEN ity of PnIj 00:00: DIRECTED [place] 00 WEEKLY. Medical Branch TRULICITY 3 2022-0 Yes [id number] 3mg INJECT 1 Univers mg/0.5 mL 5-08 PEN ity of PnIj 00:00: DIRECTED [place] 00 WEEKLY. Medical Branch TRULICITY 3 2022-0 Yes [id number] 3mg INJECT 1 Univers mg/0.5 mL 5-08 PEN ity of PnIj 00:00: DIRECTED [place] 00 WEEKLY. Medical Branch TRULICITY 3 2022-0 Yes [id number] 3mg INJECT 1 Univers mg/0.5 mL 5-08 PEN ity of PnIj 00:00: DIRECTED [place] 00 WEEKLY. Medical Branch TRULICITY 3 2022-0 Yes [id number] 3mg INJECT 1 Univers mg/0.5 mL 5-08 PEN ity of PnIj 00:00: DIRECTED [place] WEEKLY. Medical Branch TRULICITY 3 2022-0 Yes [id number] 3mg INJECT 1 Univers mg/0.5 mL 5-08 PEN ity of PnIj 00:00: DIRECTED [place] 00 WEEKLY. Medical Branch TRULICITY 3 2022-0 Yes [id number] 3mg INJECT 1 Univers mg/0.5 mL 5-08 PEN ity of PnIj 00:00: DIRECTED [place] 00 WEEKLY. Medical Branch TRULICITY 3 2022-0 Yes [id number] 3mg INJECT 1 Univers mg/0.5 mL 5-08 PEN ity of PnIj 00:00: DIRECTED [place] 00 WEEKLY. Medical Branch aspirin 81 2022-0 2022- Yes [id number] 81mg Take 1 U nivers mg chewable 5-08 06-08 tablet by it y of tablet 00:00: 04:59 mouth in [place] 00 :00 the Medical morning [place] for 30 days. aspirin 81 2022-2022- Yes [id number] 81mg Take 1 U nivers mg chewable 5-08 06-08 tablet by it y of tablet 00:00: 04:59 mouth in [place] 00 :00 the [facility] morning [place] for 30 days. aspirin 81 2022- Yes [id number] 81mg Take 1 U nivers mg chewable 5-08 06-08 tablet by it y of tablet 00:00: 04:59 mouth in [place] 00 :[address] [facility] for 30 days. aspirin 81 2022-2022- Yes [id number] 81mg Take 1 U nivers mg chewable 5-08 06-08 tablet by it y of tablet 00:00: 04:59 mouth in [place] 00 :00 the [facility] morning [place] for 30 days. aspirin 81 2022- Yes [id number] 81mg Take 1 U nivers mg chewable 5-08 06-08 tablet by it y of tablet 00:00: 04:59 mouth in [place] 00 :00 the [facility] morning [place] for 30 days. aspirin 81 2022-2022- Yes [id number] 81mg Take 1 U nivers mg chewable 5-08 06-08 tablet by it y of tablet 00:00: 04:59 mouth in [place] 00 :00 the [facility] morning [place] for 30 days. aspirin 81 2022- Yes [id number] 81mg Take 1 U nivers mg chewable 5-08 06-08 tablet by it y of tablet 00:00: 04:59 mouth in [place] 00 :00 [facility] for 30 days. aspirin 81 2022- Yes [id number] 81mg Take 1 U nivers mg chewable 5-08 06-08 tablet by it y of tablet 00:00: 04:59 mouth in [place] 00 :[address] [facility] for 30 days. aspirin 81 2022- Yes [id number] 81mg Take 1 U nivers mg chewable 5-08 06-08 tablet by it y of tablet 00:00: 04:59 mouth in [place] 00 :[address] [facility] for 30 days. aspirin 81 2022- Yes [id number] 81mg Take 1 U nivers mg chewable 5-08 06-08 tablet by it y of tablet 00:00: 04:59 mouth in [place] 00 :[address] [facility] for 30 days. aspirin 81 2022- Yes [id number] 81mg Take 1 U nivers mg chewable 5-08 06-08 tablet by it y of tablet 00:00: 04:59 mouth in [place] 00 :00 [facility] for 30 days. aspirin 81 2022- Yes [id number] 81mg Take 1 U nivers mg chewable 5- 06-08 tablet by it y of tablet 00:00: 04:59 mouth in [place] 00 :00 [facility] for 30 days. aspirin 81 2022- Yes [id number] 81mg Take 1 U nivers mg chewable 5- 06-08 tablet by it y of tablet 00:00: 04:59 mouth in [place] 00 :00 [facility] for 30 days. sulfur 2022- No [id number] 5mL 5 mL, Unive rs hexafluorid 10-27 05-07 Intravenou i ty of e microsphr 16:30: 16:23 s, ONCE, 1 [place] (LUMASON) 00 :00 dose, On Medica l injection 5 10/27/22 Br anch mL at 1130, Routine
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 Restricted medication : AL VALIENTE pyridoxine Yes Take by Univ ers HCl, 5-07 mouth ity of vitamin B6, 15:32: daily. [place] calderon (VITAMIN 09 Medical B-6 ORAL) Branch methocarbam 2023-0 Yes 750mg Take 1 Uni vers ol 750 mg 5-07 tablet by ity o f tablet 15:32: mouth in [place] [address] the Medical morning Branch and 1 tablet in the evening. buprenorphi 2023-[address] 1 Uni vers ne-naloxone 5-07 Film under it y of 8-2 mg 15:32: the tongue [place] sublingual 09 every 12 Medic al film (twelve) Branch hours as needed for Pain (scale 7-10). Cholecalcif 2023-0 Yes 2000U Take 1 Uni vers [place], 5-07 tablet by ity of Vitamin D3, 15:32: mouth in [place] 50 mcg 09 the Medical (,000 morning. Branch unit) tablet ZINC ORAL 2022-0 Yes Take by Unive rs 5-07 mouth ity of 15:32: daily. [address] COQ10, 2022-0 Yes Take by Univers UBIQUINOL, 5-07 mouth. ity of ORAL 15:32: [address] pyridoxine 2022-0 Yes Take by Univ ers HCl, 5-07 mouth ity of vitamin B6, 15:32: daily. [facility] s (VITAMIN Medical B-6 ORAL) [place] methocarbam 2022-0 Yes 750mg Take 1 Uni vers ol 750 mg 5-07 tablet by ity o f tablet 15:32: mouth in [address] Medical morning Branch and 1 tablet in the evening. buprenorphi 2023-[address] 1 Uni vers ne-naloxone 5-07 Film under it y of 8-2 mg 15:32: the tongue [place] sublingual 09 every 12 Medic al film (twelve) Branch hours as needed for Pain (scale 7-10). Cholecalcif 2023-0 Yes 2000U Take 1 Uni vers [place], 5-07 tablet by ity of Vitamin D3, 15:32: mouth in [place] 50 mcg 09 the Medical (,000 morning. Branch unit) tablet ZINC ORAL 2022-0 Yes Take by Unive rs 5-07 mouth ity of 15:32: daily. [address] COQ10, 2022-0 Yes Take by Univers UBIQUINOL, 5-07 mouth. ity of ORAL 15:32: [address] pyridoxine 2022-0 Yes Take by Univ ers HCl, 5-07 mouth ity of vitamin B6, 15:32: daily. [place] (VITAMIN 09 Medical B-6 ORAL) Branch methocarbam 2023-0 Yes 750mg Take 1 Uni vers ol 750 mg 5-07 tablet by ity o f tablet 15:32: mouth in [place] [address] the Medical morning Branch and 1 tablet in the evening. buprenorphi 2023-[address] 1 Uni vers ne-naloxone 5-07 Film under it y of 8-2 mg 15:32: the tongue [place] sublingual 09 every 12 Medic al film (twelve) Branch hours as needed for Pain (scale 7-10). Cholecalcif 2023-0 Yes 2000U Take 1 Uni vers [place], 5-07 tablet by ity of Vitamin D3, 15:32: mouth in [place] 50 mcg 09 the Medical ( morning. Branch unit) tablet ZINC ORAL 2022-0 Yes Take by Unive rs 5-07 mouth ity of 15:32: daily. [address] COQ10, 2022-0 Yes Take by Univers UBIQUINOL, 5-07 mouth. ity of ORAL 15:32: [address] pyridoxine 2022-0 Yes Take by Univ ers HCl, 5-07 mouth ity of vitamin B6, 15:32: daily. [place] (VITAMIN 09 Medical B-6 ORAL) Branch methocarbam 3-0 Yes 750mg Take 1 Uni vers ol 750 mg 5-07 tablet by ity o f tablet 15:32: mouth in [address] morning Branch and 1 tablet in the evening. buprenorphi 2023-[address] 1 Uni vers ne-naloxone 5-07 Film under it y of 8-2 mg 15:32: the tongue [place] sublingual 09 every 12 Medic al film (twelve) Branch hours as needed for Pain (scale 7-10). Cholecalcif 2023-0 Yes 2000U Take 1 Uni vers [place], 5-07 tablet by ity of Vitamin D3, 15:32: mouth in [place] 50 mcg 09 the Medical ( morning. Branch unit) tablet ZINC ORAL 2022-0 Yes Take by Unive rs 5-07 mouth ity of 15:32: daily. [address] COQ10, 2022-0 Yes Take by Univers UBIQUINOL, 5-07 mouth. ity of ORAL 15:32: [place] 09 Medical Branch pyridoxine 2023-0 Yes Take by Univ ers HCl, 5-07 mouth ity of vitamin B6, 15:32: daily. [place] (VITAMIN 09 Medical B-6 ORAL) Branch methocarbam 3-0 Yes 750mg Take 1 Uni vers ol 750 mg 5-07 tablet by ity o f tablet 15:32: mouth in [place] [address] the Medical morning Branch and 1 tablet in the evening. buprenorphi 2023-[address] 1 Uni vers ne-naloxone 5-07 Film under it y of 8-2 mg 15:32: the tongue [place] sublingual 09 every 12 Medic al film (twelve) Branch hours as needed for Pain (scale 7-10). Cholecalcif 2023-0 Yes 2000U Take 1 Uni vers [place], 5-07 tablet by ity of Vitamin D3, 15:32: mouth in [place] 50 mcg 09 the Medical (000 morning. Branch unit) tablet ZINC ORAL 2022-0 Yes Take by Unive rs 5-07 mouth ity of 15:32: daily. [address] Branch COQ10, 2022-0 Yes Take by Univers UBIQUINOL, 5-07 mouth. ity of ORAL 15:32: [address] Branch pyridoxine 2022-0 Yes Take by Univ ers HCl, 5-07 mouth ity of vitamin B6, 15:32: daily. [place] (VITAMIN 09 Medical B-6 ORAL) Branch methocarbam 2022-0 Yes 750mg Take 1 Uni vers ol 750 mg 5-07 tablet by ity o f tablet 15:32: mouth in [place] [address] the Medical morning Branch and 1 tablet in the evening. buprenorphi 2023-[address] 1 Uni vers ne-naloxone 5-07 Film under it y of 8-2 mg 15:32: the tongue [place] sublingual 09 every 12 Medic al film (twelve) Branch hours as needed for Pain (scale 7-10). Cholecalcif 2023-0 Yes 2000U Take 1 Uni vers [place], 5-07 tablet by ity of Vitamin D3, 15:32: mouth in [place] 50 mcg 09 the Medical (,000 morning. Branch unit) tablet ZINC ORAL 2022-0 Yes Take by Unive rs 5-07 mouth ity of 15:32: daily. [address] Branch COQ10, 2022-0 Yes Take by Univers UBIQUINOL, 5-07 mouth. ity of ORAL 15:32: [address] Branch pyridoxine 3-0 Yes Take by Univ ers HCl, 5-07 mouth ity of vitamin B6, 15:32: daily. [place] (VITAMIN 09 Medical B-6 ORAL) Branch methocarbam 2022-0 Yes 750mg Take 1 Uni vers ol 750 mg 5-07 tablet by ity o f tablet 15:32: mouth in [place] [address] the Medical morning Branch and 1 tablet in the evening. buprenorphi 2023-[address] 1 Uni vers ne-naloxone 5-07 Film under it y of 8-2 mg 15:32: the tongue [place] sublingual 09 every 12 Medic al film (twelve) Branch hours as needed for Pain (scale 7-10). Cholecalcif 2023-0 Yes 2000U Take 1 Uni vers [place], 5-07 tablet by ity of Vitamin D3, 15:32: mouth in [place] 50 mcg 09 the Medical ( morning. Branch unit) tablet ZINC ORAL 2022-0 Yes Take by Unive rs 5-07 mouth ity of 15:32: daily. [address] Branch COQ10, 2022-0 Yes Take by [facility] UBIQUINOL, 5-07 mouth. ity of ORAL 15:32: [address] pyridoxine 2022-0 Yes Take by Univ ers HCl, 5-07 mouth ity of vitamin B6, 15:32: daily. [place] (VITAMIN 09 Medical B-6 ORAL) Branch methocarbam 2022-0 Yes 750mg Take 1 Uni vers ol 750 mg 5-07 tablet by ity o f tablet 15:32: mouth in [place] [id number] the Medical morning Branch and 1 tablet in the evening. buprenorphi 2023-[address] 1 Uni vers ne-naloxone 5-07 Film under it y of 8-2 mg 15:32: the tongue [place] sublingual 09 every 12 Medic al film (twelve) Branch hours as needed for Pain (scale 7-10). Cholecalcif 2023-0 Yes 2000U Take 1 [facility] vers [place], 5-07 tablet by ity of Vitamin D3, 15:32: mouth in [place] 50 mcg 09 the Medical (000 morning. Branch unit) tablet ZINC ORAL 2023-0 Yes Take by Unive rs 5-07 mouth ity of 15:32: daily. [address] COQ10, 2022-0 Yes Take by [facility] UBIQUINOL, 07 mouth. ity of ORAL 15:32: [address] buprenorphi 2022-[address] 1 Uni vers ne-naloxone 10-27 Film under it y of 8-2 mg 15:32: the tongue [place] sublingual 09 every 12 Medic al film (twelve) Branch hours as needed for Pain (scale 7-10). buprenorphi 2022-[address] 1 Uni vers ne-naloxone 10-27 Film under it y of 8-2 mg 15:32: the tongue [place] sublingual 09 every 12 Medic al film (twelve) Branch hours as needed for Pain (scale 7-10). buprenorphi 2022-[address] 1 Uni vers ne-naloxone 10-27 Film under it y of 8-2 mg 15:32: the tongue [place] sublingual 09 every 12 Medic al film (twelve) Branch hours as needed for Pain (scale 7-10). buprenorphi 2022-[address] 1 Uni vers ne-naloxone 10-27 Film under it y of 8-2 mg 15:32: the tongue [place] sublingual 09 every 12 Medic al film (twelve) Branch hours as needed for Pain (scale 7-10). buprenorphi 2022-[address] 1 Uni vers ne-naloxone 10-27 Film under it y of 8-2 mg 15:32: the tongue [place] sublingual 09 every 12 Medic al film (twelve) Branch hours as needed for Pain (scale 7-10). buprenorphi 2022-[address] 1 Uni vers ne-naloxone 10-27 Film under it y of 8-2 mg 15:32: the tongue [place] sublingual 09 every 12 Medic al film (twelve) Branch hours as needed for Pain (scale 7-10). buprenorphi 2022-[address] 1 Uni vers ne-naloxone - Film under it y of 8-2 mg 15:32: the tongue [place] sublingual 09 every 12 Medic al film (twelve) Branch hours as needed for Pain (scale 7-10). rivaroxaban 0 Yes 1291 20mg 20 mg, Univ ers (XARELTO) 07 Oral, ity of tablet 20 14:00: DAILY, [place] mg 00 First dose Medical on [place] Branch 10/27/22 at 0900, Until Discontinu ed, Routine polyethylen 2022-0 Yes 17g 17 g, Unive rs e glycol 10-27 Oral, ity of 3350 powder 14:00: DAILY, [place] 17 g 00 First dose Medical on [place] [facility] 10/27/22 at 0900, Until Discontinu ed magnesium 2022-0 Yes 400mg 400 mg, Univ ers oxide 10-27 Oral, ity of (MAG-OX 14:00: DAILY, [place] 400) tablet 00 First dose Me dical 400 mg on [place] Branch 10/27/22 at 0900, Until Discontinu ed isosorbide 0 Yes 60mg 60 mg, Unive rs mononitrate 10-27 Oral, ity of (IMDUR) 24 14:00: DAILY, [place] hr tablet 00 First dose Medi marium 60 mg on [place] Branch 10/27/22 at 0900, Until Discontinu ed, Routine foLIC acid 0 Yes 1mg 1 mg, Univer s (FOLATE) 10-27 Oral, ity of tablet 1 mg 14:00: DAILY, [place] 00 First dose Medical [place] [facility] 10/27/22 at 0900, Until Discontinu ed, Routine diltiazem 0 Yes 120mg 120 mg, Univ ers XR 10-27 Oral, ity of (DILT-XR) 14:00: DAILY, [place] capsule 120 00 First dose Me dical mg on [place] Branch 10/27/22 at 0900, Until Discontinu ed, Routine cholecalcif 0 Yes 2000U 2,000 Univ ers [place] 10-27 Units, ity of (vitamin 14:00: Oral, [place] D3) tablet 00 DAILY, Medical 2,000 Units First dose Br anch on 10/27/22 at 0900, Until Discontinu ed buPROPion 0 Yes 150mg 150 mg, Univ ers XL 10-27 Oral, ity of (WELLBUTRIN 14:00: [facility], [facility] [place] tablet 00 First dose Med ical 150 mg on [place] Branch 10/27/22 at 0900, Until Discontinu ed, Routine ARIPiprazol 0 Yes 15mg 15 mg, Univ ers e (ABILIFY) 10-27 Oral, ity of tablet 15 14:00: DAILY, [place] mg 00 First dose Medical on [place] Branch 10/27/22 at 0900, Until Discontinu ed, Routine allopurinoL Yes 300mg 300 mg, Un [place] (ZYLOPRIM) 10-27 Oral, ity of tablet 300 14:00: DAILY, [place] mg 00 First dose Medical on [place] Branch 10/27/22 at 0900, Until Discontinu ed, Routine aspirin Yes 81mg 81 mg, Univers chewable 10-27 Oral, ity of tablet 81 14:00: DAILY, [place] mg 00 First dose Medical on [place] [facility] 10/27/22 at 0900, Until Discontinu ed, Routine ferrous Yes 325mg 325 mg, Univer s sulfate 10-27 Oral, TID ity of tablet 325 13:00: MEALS, [place] mg 00 First dose Medical on [place] Branch 10/27/22 at 0800, Until Discontinu ed, Routine empaglifloz Yes 10mg 10 mg, Univ ers in 10-27 Oral, ONCE ity of (JARDIANCE) 12:30: DAILY AC, [place] tablet 10 00 First dose Medi marium mg on [place] Branch 10/27/22 at 0730, Until Discontinu ed, Routine
Is this a home medication ? Yes
Has this patient brought their own medication ? No
Phar maría will dispense the medication from inpatient. Pharmacy will dispense the medication from inpatient.
Inpati ent ordering of this medication is not allowed unless the patient is maintained on this medication at home, and home supply is unavailabl e. Does this order meet the criteria for inpatient ordering? Yes HYDROmorphO 2022- No .5mg 0.5 mg, Un [place] ne 10-27 05-07 Slow IV ity of (DILAUDID) 05:18: 12:56 Push, [place] injection 46 :56 Q4HPRN, Medical 0.5 mg Starting Branch on 10/27/22 at 0018, Until 10/27/22 at 0756, Routine, Pain (scale 7-10)
U se approved by (Faculty): ADC PROVIDER atorvastati Yes 40mg 40 mg, Univ ers n (LIPITOR) 5-07 Oral, QHS, it y of tablet 40 02:00: First dose [place] mg 00 on [facility] 10/26/22 at Branch 2100, Until Discontinu ed, Routine ranolazine 2022-0 Yes 1000mg 1,000 mg, Univers (RANEXA) 12 5-07 Oral, BID, it y of hr tablet 01:00: First dose [place] 1,000 mg 00 on [facility] 10/26/22 at [place] 2000, Until Discontinu ed pantoprazol 2022-0 Yes 40mg 40 mg, Univ ers e 5-07 Oral, BID, ity of (PROTONIX) 01:00: First dose [place] EC tablet 00 on [facility] Medical 40 mg 10/26/22 at [place] 2000, Until Discontinu ed, Routine methocarbam 2022-0 Yes 750mg 750 mg, Un [place] oL 5-07 Oral, BID, ity of (ROBAXIN) 01:00: First dose [place] tablet 750 00 on [facility] Medical mg 10/26/22 at [place] 2000, Until Discontinu ed, Routine KCL 20 2022-0 Yes 90meq 90 mEq, Univers mEq/15 mL 5-07 Oral, BID, ity of solution 90 01:00: First dose [place] mEq 00 on [facility] 10/26/22 at [place] 2000, Until Discontinu ed, Routine clonazePAM 2022-0 Yes 1mg 1 mg, Univer s (KLONOPIN) 5-07 Oral, TID, ity of tablet 1 mg 01:00: First dose [place] 00 on [facility] 10/26/22 at [place] 2000, Until Discontinu ed, Routine aMILoride 2022-0 Yes 10mg 10 mg, Univer s (MIDAMOR) 5-07 Oral, BID, ity of tablet 10 01:00: First dose [place] mg 00 on [facility] 10/26/22 at [place] 2000, Until Discontinu ed, Routine buprenorphi 2022-0 Yes 8mg 8 mg, Unive rs ne-naloxone - Sublingual it y of (SUBOXONE) 00:26: , [id number], [place] 8-2 mg 23 Starting Medical sublingual on [facility] Branch film 8 mg 10/26/22 at 1926, Until Discontinu ed, Routine, Pain (scale 4-6)
Re ason for non-formul philip use: PATIENT CURRENTLY TAKING NONFORMULA RY PRODUCT
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 Non-formul philip medication : MINDY FERRER morpHINE (4 2022- No 4mg 4 mg, Slow Univers mg/mL) 10-2707 IV Push, ity of injection 4 00:25: 05:19 Q4HPRN, [place] mg 29 :22 Starting Medical on [facility] Branch 10/26/22 at 1925, Until 10/27/22 at 0019, Routine, Pain (scale 7-10) docusate Yes 100mg 100 mg, Unive rs (COLACE) 10-26 Oral, ity of capsule 100 23:50: BIDPRN, [place] mg 51 Starting Medical on [facility] Branch 10/26/22 at 1850, Until Discontinu ed, Routine, Constipati on nitroglycer Yes .4mg 0.4 mg, Uni vers in 10-26 Sublingual ity of (NITROSTAT) 23:47: , Q5MIN [place] sublingual 51 PRN, Medical tablet 0.4 Starting Branc h mg on [facility] 10/26/22 at 1847, Until Discontinu ed, Routine, Chest pain acetaminoph Yes 650mg 650 mg, Un [place] en 10-26 Oral, ity of (TYLENOL) 23:46: Q6HPRN, [place] tablet 650 03 Starting Medic al mg on [facility] Branch 10/26/22 at 1846, Until Discontinu ed, Routine, Pain (scale 1-3) morpHINE (4 2022- No 4mg 4 mg, Slow Univers mg/mL) 10-26 IV Push, ity of injection 4 21:30: 21:00 ONCE, 1 [place] mg 00 :00 dose, On Medical [facility] 10/26/22 Branch at 1630, STAT ondansetron 2022- No 4mg 4 mg, Slow Univers (ZOFRAN 10-26 IV Push, ity of (PF)) 20:00: 19:57 ONCE, 1 [place] injection 4 00 :00 dose, On Medi marium mg [facility] 10/26/22 Branch at 1500, LIVIA morpHINE (4 2022- No 4mg 4 mg, Slow Univers mg/mL) 10-26-06 IV Push, ity of injection 4 20:00: 19:57 ONCE, 1 [place] mg 00 :00 dose, On Medical 10/26/22 Branch at 1500, STAT levocarniti 2022-0 2022- No Take by Un [place] ne 10-26 05-06 mouth. ity of (L-CARNITIN 18:55: 00:00 [place] E ORAL) 00 :00 Medical Branch pyridoxine 2022-0 Yes Take by Univ ers HCl, 4-25 mouth ity of vitamin B6, 12:47: daily. [place] (VITAMIN 41 Medical B-6 ORAL) Branch methocarbam 2022-0 Yes 750mg Take 1 Uni vers ol 750 mg 4-25 tablet by ity o f tablet 12:47: mouth in [place] [address] the Medical morning Branch and 1 tablet in the evening. buprenorphi 2022-[address] 1 Uni vers ne-naloxone 4-25 Film under it y of 8-2 mg 12:47: the tongue [place] sublingual 41 every 12 Medic al film (twelve) Branch hours as needed for Pain (scale 7-10). Cholecalcif 2022-0 Yes 2000U Take 1 Uni vers [place], 4-25 tablet by ity of Vitamin D3, 12:47: mouth in [place] 50 mcg 41 the Medical (2,000 morning. Branch unit) tablet ZINC ORAL 2022-0 Yes Take by Unive rs 4-25 mouth ity of 12:47: daily. [address] Branch COQ10, 2022-0 Yes Take by [facility] UBIQUINOL, 4-25 mouth. ity of ORAL 12:47: [address] Branch levocarniti 2022-0 Yes Take by Uni vers ne 4-25 mouth. ity of (L-CARNITIN 12:47: [place] E ORAL) 41 Medical Branch pyridoxine 2022-0 Yes Take by Univ ers HCl, 4-25 mouth ity of vitamin B6, 12:47: daily. [place] (VITAMIN 41 Medical B-6 ORAL) Branch methocarbam 2022-0 Yes 750mg Take 1 Uni vers ol 750 mg 4-25 tablet by ity o f tablet 12:47: mouth in [place] [address] the Medical morning Branch and 1 tablet in the evening. buprenorphi 2023-[address] 1 Uni vers ne-naloxone 4-25 Film under it y of 8-2 mg 12:47: the tongue [place] sublingual 41 every 12 Medic al film (twelve) Branch hours as needed for Pain (scale 7-10). Cholecalcif 202-0 Yes 2000U Take 1 Uni vers [place], 4-25 tablet by ity of Vitamin D3, 12:47: mouth in [place] 50 mcg 41 the Medical (,000 morning. Branch unit) tablet ZINC ORAL 2022-0 Yes Take by Unive rs 4-25 mouth ity of 12:47: daily. [address] Branch COQ10, 0 Yes Take by Univers UBIQUINOL, 4-25 mouth. ity of ORAL 12:47: [address] Branch levocarniti 0 Yes Take by Uni vers ne 4-25 mouth. ity of (L-CARNITIN 12:47: [place] E ORAL) [address] [place] [address] Branch pyridoxine 0 Yes Take by Univ ers HCl, 4-25 mouth ity of vitamin B6, 12:47: daily. [place] [facility] (VITAMIN Medical B-6 ORAL) [place] methocarbam 0 Yes 750mg Take 1 Uni vers ol 750 mg 4-25 tablet by ity o f tablet 12:47: mouth in [place] [address] the Medical morning Branch and 1 tablet in the evening. buprenorphi 2022-[address] 1 Uni vers ne-naloxone 4-25 Film under it y of 8-2 mg 12:47: the tongue [place] sublingual 41 every 12 Medic al film (twelve) Branch hours as needed for Pain (scale 7-10). Cholecalcif 202-0 Yes 2000U Take 1 Uni vers [place], 4-25 tablet by ity of Vitamin D3, 12:47: mouth in [place] 50 mcg 41 the Medical (2,000 morning. Branch unit) tablet ZINC ORAL 2022-0 Yes Take by Unive rs 4-25 mouth ity of 12:47: daily. [address] Branch COQ10, 2022-0 Yes Take by Univers UBIQUINOL, 4-25 mouth. ity of ORAL 12:47: [address] Branch levocarniti 0 Yes Take by Uni vers ne 4-25 mouth. ity of (L-CARNITIN 12:47: [place] E ORAL) 41 Medical Branch pyridoxine 2022-0 Yes Take by [facility] ers HCl, 4-25 mouth ity of vitamin B6, 12:47: daily. [place] (VITAMIN 41 Medical B-6 ORAL) Branch methocarbam 2022-0 Yes 750mg Take 1 Uni vers ol 750 mg 4-25 tablet by ity o f tablet 12:47: mouth in [place] [address] the Medical morning Branch and 1 tablet in the evening. buprenorphi 2023-[address] 1 Uni vers ne-naloxone 4-25 Film under it y of 8-2 mg 12:47: the tongue [place] sublingual 41 every 12 Medic al film (twelve) Branch hours as needed for Pain (scale 7-10). Cholecalcif 2022-0 Yes 2000U Take 1 Uni vers [place], 4-25 tablet by ity of Vitamin D3, 12:47: mouth in [place] 50 mcg 41 the Medical (2,000 morning. Branch unit) tablet ZINC ORAL 2022-0 Yes [facility] mouth ity of 12:47: daily. [address] Branch COQ10, 2022-0 Yes Take by [facility] UBIQUINOL, 4-25 mouth. ity of ORAL 12:47: [address] Branch levocarniti 0 Yes Take by Uni vers ne 4-25 mouth. ity of (L-CARNITIN 12:47: [place] E ORAL) [address] [place] [address] Branch pyridoxine 2022-0 Yes Take by [facility] ers HCl, 4-25 mouth ity of vitamin B6, 12:47: daily. [place] (VITAMIN 41 Medical B-6 ORAL) Branch methocarbam 2022-0 Yes 750mg Take 1 Uni vers ol 750 mg 4-25 tablet by ity o f tablet 12:47: mouth in [place] [address] the Medical morning Branch and 1 tablet in the evening. buprenorphi 2023-[address] 1 Uni vers ne-naloxone 4-25 Film under it y of 8-2 mg 12:47: the tongue [place] sublingual 41 every 12 Medic al film (twelve) Branch hours as needed for Pain (scale 7-10). Cholecalcif 2023-0 Yes 2000U Take 1 Uni vers [place], 4-25 tablet by ity of Vitamin D3, 12:47: mouth in [place] 50 mcg 41 the Medical (2,000 morning. Branch unit) tablet ZINC ORAL 0 Yes Take by Unive rs 4-25 mouth ity of 12:47: daily. [place] [address] Medical Branch COQ10, 0 Yes Take by Univers UBIQUINOL, 4-25 mouth. ity of ORAL 12:47: [place] [address] Medical Branch levocarniti 0 Yes Take by Uni vers ne 4-25 mouth. ity of (L-CARNITIN 12:47: [place] E ORAL) Medical Branch pyridoxine 0 Yes Take by Univ ers HCl, 4-25 mouth ity of vitamin B6, 12:47: [facility]. [facility] [place] (V[facility] 41 Medical B-6 ORAL) Branch methocarbam 0 Yes 750mg Take 1 Uni vers ol 750 mg 4-25 tablet by ity o f tablet 12:47: mouth in [place] [address] the Medical morning Branch and 1 tablet in the evening. buprenorphi [address] 1 Uni vers ne-naloxone 4-25 Film under it y of 8-2 mg 12:47: the tongue [place] sublingual 41 every 12 Medic al film (twelve) Branch hours as needed for Pain (scale 7-10). Cholecalcif 0 Yes 2000U Take 1 Uni vers [place], 4-25 tablet by ity of Vitamin D3, 12:47: mouth in [place] 50 mcg 41 the Medical (,000 morning. Branch unit) tablet ZINC ORAL 0 Yes Take by Unive rs 4-25 mouth ity of 12:47: daily. [place] [address] Medical Branch COQ10, 0 Yes Take by Univers UBIQUINOL, 4-25 mouth. ity of ORAL 12:47: [place] [address] Medical Branch levocarniti 0 Yes Take by Uni vers ne 4-25 mouth. ity of (L-CARNITIN 12:47: [place] E ORAL) Medical Branch clonazePAM 2022-0 Yes [id number] Take 1 U nivers 1 mg tablet 4-25 pill PO in it y of 00:00: the AM, 1 [place] 00 PO in the Medical afternoon, Branch 1 pill PO in the evening. May take additional 1/2 pill as needed for acute anxiety. clonazePAM 2022-0 Yes [id number] Take 1 U nivers 1 mg tablet 4-25 pill PO in it y of 00:00: the AM, 1 [place] 00 PO in the Medical afternoon, Branch 1 pill PO in the evening. May take additional 1/2 pill as needed for acute anxiety. clonazePAM 3-0 Yes [id number] Take 1 U nivers 1 mg tablet 4-25 pill PO in it y of 00:00: the AM, 1 [place] 00 PO in the Medical afternoon, Branch 1 pill PO in the evening. May take additional 1/2 pill as needed for acute anxiety. clonazePAM 2022-0 Yes [id number] Take 1 U nivers 1 mg tablet 4-25 pill PO in it y of 00:00: the AM, 1 [place] 00 PO in the Medical afternoon, Branch 1 pill PO in the evening. May take additional 1/2 pill as needed for acute anxiety. clonazePAM 2022-0 Yes [id number] Take 1 U nivers 1 mg tablet 4-25 pill PO in it y of 00:00: the AM, 1 [place] 00 PO in the Medical afternoon, Branch 1 pill PO in the evening. May take additional 1/2 pill as needed for acute anxiety. clonazePAM 2022-0 Yes [id number] Take 1 U nivers 1 mg tablet 4-25 pill PO in it y of 00:00: the AM, 1 [place] 00 PO in the Medical afternoon, Branch 1 pill PO in the evening. May take additional 1/2 pill as needed for acute anxiety. clonazePAM 2022-0 Yes [id number] Take 1 U nivers 1 mg tablet 4-25 pill PO in it y of 00:00: the AM, 1 [place] 00 PO in the Medical afternoon, Branch 1 pill PO in the evening. May take additional 1/2 pill as needed for acute anxiety. clonazePAM 2022-0 Yes [id number] Take 1 U nivers 1 mg tablet 4-25 pill PO in it y of 00:00: the AM, 1 [place] 00 PO in the Medical afternoon, Branch 1 pill PO in the evening. May take additional 1/2 pill as needed for acute anxiety. clonazePAM 2022-0 Yes [id number] Take 1 U nivers 1 mg tablet 4-25 pill PO in it y of 00:00: the AM, 1 [place] 00 PO in the Medical afternoon, Branch 1 pill PO in the evening. May take additional 1/2 pill as needed for acute anxiety. clonazePAM 2022-0 Yes [id number] Take 1 U nivers 1 mg tablet 4-25 pill PO in it y of 00:00: the AM, 1 [place] 00 PO in the Medical afternoon, Branch 1 pill PO in the evening. May take additional 1/2 pill as needed for acute anxiety. clonazePAM 3-0 Yes [id number] Take 1 U nivers 1 mg tablet 4-25 pill PO in it y of 00:00: the AM, 1 [place] 00 PO in the Medical afternoon, Branch 1 pill PO in the evening. May take additional 1/2 pill as needed for acute anxiety. clonazePAM 2022-0 Yes [id number] Take 1 U nivers 1 mg tablet 4-25 pill PO in it y of 00:00: the AM, 1 [place] 00 PO in the Medical afternoon, Branch 1 pill PO in the evening. May take additional 1/2 pill as needed for acute anxiety. clonazePAM 2022-0 Yes [id number] Take 1 U nivers 1 mg tablet 4-25 pill PO in it y of 00:00: the AM, 1 [place] 00 PO in the Medical afternoon, Branch 1 pill PO in the evening. May take additional 1/2 pill as needed for acute anxiety. clonazePAM 2022-0 Yes [id number] Take 1 U nivers 1 mg tablet 4-25 pill PO in it y of 00:00: the AM, 1 [place] 00 PO in the Medical afternoon, Branch 1 pill PO in the evening. May take additional 1/2 pill as needed for acute anxiety. clonazePAM 2022-0 Yes [id number] Take 1 U nivers 1 mg tablet 4-25 pill PO in it y of 00:00: the AM, 1 [place] 00 PO in the Medical afternoon, Branch 1 pill PO in the evening. May take additional 1/2 pill as needed for acute anxiety. clonazePAM 2022-0 2022- No [id number] Take 1 Univers 1 mg tablet 4-25 05-22 pill PO in i ty of 00:00: 00:00 the AM, 1 [place] 00 :00 PO in the Medical afternoon, Branch 1 pill PO in the evening. May take additional 1/2 pill as needed for acute anxiety. clonazePAM 2022-0 2022- No [id number] Take 1 Univers 1 mg tablet 4-25 05-22 pill PO in i ty of 00:00: 00:00 the AM, 1 [place] 00 :00 PO in the Medical afternoon, Branch 1 pill PO in the evening. May take additional 1/2 pill as needed for acute anxiety. clonazePAM 2022- No [id number] Take 1 Univers 1 mg tablet 10-15 pill PO in i ty of 00:00: 00:00 the AM, 1 [place] 00 :00 PO in the Medical afternoon, Branch 1 pill PO in the evening. May take additional 1/2 pill as needed for acute anxiety. ferric 2022-2022- No [id number] 1000mg 1,000 mg, Univers derisomalto 10-03 IV ity of se 14:15: 14:50 Infusion, [place] (MONOFERRIC 00 :00 ONCE, Medical ) 1,000 mg Administer Bra nch in NaCl over 20 0.9% (NS) Minutes, 100 mL On [place] infusion 10/03/22 at 0915, For 1 dose
Si gns and symptoms of hypersensi tivity that may develop during and following infusion such as rash, itching, dizziness, lightheade dness, swelling and breathing problems.< br> proMETHazin 2022-0 Yes [id number] 25mg Take 1 Univers e 25 mg 4-12 tablet by ity of tablet 00:00: mouth [place] 00 every 6 Medical (six) Branch hours. For nausea. isosorbide 2022-0 Yes [id number] 60mg Take 1 Univers mononitrate 4-12 02 tablet by ity of 60 mg 24 hr 00:00: mouth in [place] tablet 00 the Medical morning. Branch proMETHazin 2022-0 Yes [id number] 25mg Take 1 Univers e 25 mg 4-12 tablet by ity of tablet 00:00: mouth [place] 00 every 6 Medical (six) Branch hours. For nausea. isosorbide 2022-0 Yes [id number] 60mg Take 1 Univers mononitrate 4-12 02 tablet by ity of 60 mg 24 hr 00:00: mouth in [place] tablet 00 the Medical morning. Branch proMETHazin 2022-0 Yes [id number] 25mg Take 1 Univers e 25 mg 4-12 tablet by ity of tablet 00:00: mouth [place] 00 every 6 Medical (six) Branch hours. For nausea. isosorbide 3-0 Yes [id number] 60mg Take 1 Univers mononitrate 4-12 02 tablet by ity of 60 mg 24 hr 00:00: mouth in [place] tablet 00 the Medical morning. Branch proMETHazin 3-0 Yes [id number] 25mg Take 1 Univers e 25 mg 4-12 tablet by ity of tablet 00:00: mouth [place] 00 every 6 Medical (six) Branch hours. For nausea. isosorbide 2023-0 Yes [id number] 60mg Take 1 [facility] mononitrate 4-12 02 tablet by ity of 60 mg 24 hr 00:00: mouth in [place] tablet 00 the Medical morning. Branch proMETHazin 3-0 Yes [id number] 25mg Take 1 Univers e 25 mg 4-12 tablet by ity of tablet 00:00: mouth [place] 00 every 6 Medical (six) Branch hours. For nausea. isosorbide 2023-0 Yes [id number] 60mg Take 1 Univers mononitrate 4-12 02 tablet by ity of 60 mg 24 hr 00:00: mouth in [place] tablet 00 the Medical morning. Branch proMETHazin 3-0 Yes [id number] 25mg Take 1 Univers e 25 mg 4-12 tablet by ity of tablet 00:00: mouth [place] 00 every 6 Medical (six) Branch hours. For nausea. isosorbide 2023-0 Yes [id number] 60mg Take 1 Univers mononitrate 4-12 02 tablet by ity of 60 mg 24 hr 00:00: mouth in [place] tablet 00 the Medical morning. Branch proMETHazin 3-0 Yes [id number] 25mg Take 1 Univers e 25 mg 4-12 tablet by ity of tablet 00:00: mouth [place] 00 every 6 Medical (six) Branch hours. For nausea. isosorbide 2023-0 Yes [id number] 60mg Take 1 Univers mononitrate 4-12 02 tablet by ity of 60 mg 24 hr 00:00: mouth in [place] tablet 00 the Medical morning. Branch proMETHazin 2023-0 Yes [id number] 25mg Take 1 Univers e 25 mg 4-12 tablet by ity of tablet 00:00: mouth [place] 00 every 6 Medical (six) Branch hours. For nausea. isosorbide 2023-0 Yes [id number] 60mg Take 1 Univers mononitrate 4-12 02 tablet by ity of 60 mg 24 hr 00:00: mouth in [place] tablet 00 the Medical morning. Branch proMETHazin 3-0 Yes [id number] 25mg Take 1 Univers e 25 mg 4-12 tablet by ity of tablet 00:00: mouth [place] 00 every 6 Medical (six) Branch hours. For nausea. isosorbide 2023-0 Yes [id number] 60mg Take 1 [facility] mononitrate 4-12 02 tablet by ity of 60 mg 24 hr 00:00: mouth in [place] tablet 00 the Medical morning. Branch proMETHazin 3-0 Yes [id number] 25mg Take 1 Univers e 25 mg 4-12 tablet by ity of tablet 00:00: mouth [place] 00 every 6 Medical (six) Branch hours. For nausea. isosorbide 2023-0 Yes [id number] 60mg Take 1 Univers mononitrate 4-12 02 tablet by ity of 60 mg 24 hr 00:00: mouth in [place] tablet 00 the Medical morning. Branch proMETHazin 3-0 Yes [id number] 25mg Take 1 Univers e 25 mg 4-12 tablet by ity of tablet 00:00: mouth [place] 00 every 6 Medical (six) Branch hours. For nausea. isosorbide 2023-0 Yes [id number] 60mg Take 1 Univers mononitrate 4-12 02 tablet by ity of 60 mg 24 hr 00:00: mouth in [place] tablet 00 the Medical morning. Branch proMETHazin 3-0 Yes [id number] 25mg Take 1 [facility] 25 mg 4-12 tablet by [facility] tablet 00:00: mouth [place] 00 every 6 Medical (six) Branch hours. For nausea. isosorbide 2023-0 Yes [id number] 60mg Take 1 [facility] mononitrate 4-12 02 tablet by [facility] of 60 mg 24 hr 00:00: mouth in [place] tablet 00 the Medical morning. Branch proMETHazin 3-0 Yes [id number] 25mg Take 1 [facility] 25 mg 4-12 tablet by [facility] of tablet 00:00: mouth [place] 00 every 6 Medical (six) Branch hours. For nausea. isosorbide 2023-0 Yes [id number] 60mg Take 1 [facility] mononitrate 4-12 02 tablet by [facility] of 60 mg 24 hr 00:00: mouth in [place] tablet 00 the Medical morning. Branch proMETHazin 3-0 Yes [id number] 25mg Take 1 [facility] 25 mg 4-12 tablet by [facility] tablet 00:00: mouth [place] 00 every 6 Medical (six) Branch hours. For nausea. isosorbide 2023-0 Yes [id number] 60mg Take 1 [facility] mononitrate 4-12 02 tablet by [facility] of 60 mg 24 hr 00:00: mouth in [place] tablet 00 the Medical morning. Branch proMETHazin 3-0 Yes [id number] 25mg Take 1 [facility] 25 mg 4-12 tablet by [facility] of tablet 00:00: mouth [place] 00 every 6 Medical (six) Branch hours. For nausea. isosorbide 2023-0 Yes [id number] 60mg Take 1 [facility] mononitrate 4-12 02 tablet by [facility] of 60 mg 24 hr 00:00: mouth in [place] tablet 00 the Medical morning. Branch proMETHazin 3-0 Yes [id number] 25mg Take 1 [facility] 25 mg 4-12 tablet by [facility] of tablet 00:00: mouth [place] 00 every 6 Medical (six) Branch hours. For nausea. isosorbide 3-0 Yes [id number] 60mg Take 1 [facility] mononitrate 4-12 02 tablet by [facility] of 60 mg 24 hr 00:00: mouth in [place] tablet 00 the Medical morning. Branch proMETHazin 3-0 Yes [id number] 25mg Take 1 [facility] 25 mg 4-12 tablet by [facility] of tablet 00:00: mouth [place] 00 every 6 Medical (six) Branch hours. For nausea. isosorbide 2023-0 Yes [id number] 60mg Take 1 [facility] mononitrate 4-12 02 tablet by [facility] 60 mg 24 hr 00:00: mouth in [place] tablet 00 the Medical morning. Branch proMETHazin 3-0 Yes [id number] 25mg Take 1 [facility] 25 mg 4-12 tablet by [facility] of tablet 00:00: mouth [place] 00 every 6 Medical (six) Branch hours. For nausea. isosorbide 2023-0 Yes [id number] 60mg Take 1 [facility] mononitrate 4-12 02 tablet by [facility] of 60 mg 24 hr 00:00: mouth in [place] tablet 00 the Medical morning. Branch proMETHazin 3-0 Yes [id number] 25mg Take 1 [facility] 25 mg 4-12 tablet by [facility] of tablet 00:00: mouth [place] 00 every 6 Medical (six) Branch hours. For nausea. isosorbide 2023-0 Yes [id number] 60mg Take 1 [facility] mononitrate 4-12 02 tablet by [facility] of 60 mg 24 hr 00:00: mouth in [place] tablet 00 the Medical morning. Branch proMETHazin 3-0 Yes [id number] 25mg Take 1 [facility] 25 mg 4-12 tablet by [facility] of tablet 00:00: mouth [place] 00 every 6 Medical (six) Branch hours. For nausea. isosorbide 2023-0 Yes [id number] 60mg Take 1 [facility] mononitrate 4-12 02 tablet by [facility] of 60 mg 24 hr 00:00: mouth in [place] tablet 00 the Medical morning. Branch proMETHazin 3-0 Yes [id number] 25mg Take 1 [facility] 25 mg 4-12 tablet by [facility] of tablet 00:00: mouth [place] 00 every 6 Medical (six) Branch hours. For nausea. isosorbide 3-0 Yes [id number] 60mg Take 1 [facility] mononitrate 4-12 02 tablet by [facility] 60 mg 24 hr 00:00: mouth in [place] tablet 00 the Medical morning. Branch proMETHazin 3-0 Yes [id number] 25mg Take 1 [facility] 25 mg 4-12 tablet by [facility] of tablet 00:00: mouth [place] 00 every 6 Medical (six) Branch hours. For nausea. isosorbide 3-0 Yes [id number] 60mg Take 1 [facility] mononitrate 4-12 02 tablet by [facility] 60 mg 24 hr 00:00: mouth in [place] tablet 00 the Medical morning. Branch proMETHazin 3-0 Yes [id number] 25mg Take 1 [facility] 25 mg 4-12 tablet by [facility] of tablet 00:00: mouth [place] 00 every 6 Medical (six) Branch hours. For nausea. isosorbide 2023-0 Yes [id number] 60mg Take 1 [facility] mononitrate 4-12 02 tablet by [facility] of 60 mg 24 hr 00:00: mouth in [place] tablet 00 the Medical morning. Branch clonazePAM 3-0 Yes [id number] Take 1 [facility] 1 mg tablet 3-28 pill PO in it y of 00:00: the AM, 1 [place] 00 PO in the Medical afternoon, Branch 1 pill PO in the evening. May take additional 1/2 pill as needed for acute anxiety. clonazePAM 2023-0 Yes [id number] Take 1 [facility] 1 mg tablet 3-28 pill PO in it y of 00:00: the AM, 1 [place] 00 PO in the Medical afternoon, Branch 1 pill PO in the evening. May take additional 1/2 pill as needed for acute anxiety. clonazePAM 2023-0 Yes [id number] Take 1 [facility] 1 mg tablet 3-28 pill PO in it y of 00:00: the AM, 1 [place] 00 PO in the Medical afternoon, Branch 1 pill PO in the evening. May take additional 1/2 pill as needed for acute anxiety. clonazePAM 2023-0 Yes [id number] Take 1 [facility] 1 mg tablet 3-28 pill PO in it y of 00:00: the AM, 1 [place] 00 PO in the Medical afternoon, Branch 1 pill PO in the evening. May take additional 1/2 pill as needed for acute anxiety. clonazePAM 2023-0 Yes [id number] Take 1 [facility] 1 mg tablet 3-28 pill PO in it y of 00:00: the AM, 1 [place] 00 PO in the Medical afternoon, Branch 1 pill PO in the evening. May take additional 1/2 pill as needed for acute anxiety. clonazePAM 2023-0 Yes [id number] Take 1 [facility] 1 mg tablet 3-28 pill PO in it y of 00:00: the AM, 1 [place] 00 PO in the Medical afternoon, Branch 1 pill PO in the evening. May take additional 1/2 pill as needed for acute anxiety. clonazePAM 2023-0 Yes [id number] Take 1 [facility] 1 mg tablet 3-28 pill PO in it y of 00:00: the AM, 1 [place] 00 PO in the Medical afternoon, Branch 1 pill PO in the evening. May take additional 1/2 pill as needed for acute anxiety. clonazePAM 2023-0 Yes [id number] Take 1 [facility] 1 mg tablet 3-28 pill PO in it y of 00:00: the AM, 1 [place] 00 PO in the Medical afternoon, Branch 1 pill PO in the evening. May take additional 1/2 pill as needed for acute anxiety. clonazePAM 2023-0 Yes [id number] Take 1 [facility] 1 mg tablet 3-28 pill PO in it y of 00:00: the AM, 1 [place] 00 PO in the Medical afternoon, Branch 1 pill PO in the evening. May take additional 1/2 pill as needed for acute anxiety. clonazePAM 2023-0 Yes [id number] Take 1 [facility] 1 mg tablet 3-28 pill PO in it y of 00:00: the AM, 1 [place] 00 PO in the Medical afternoon, Branch 1 pill PO in the evening. May take additional 1/2 pill as needed for acute anxiety. clonazePAM 2023-0 Yes [id number] Take 1 [facility] 1 mg tablet 3-28 pill PO in it y of 00:00: the AM, 1 [place] 00 PO in the Medical afternoon, Branch 1 pill PO in the evening. May take additional 1/2 pill as needed for acute anxiety. clonazePAM 3-0 Yes [id number] Take 1 [facility] 1 mg tablet 3-28 pill PO in it y of 00:00: the AM, 1 [place] 00 PO in the Medical afternoon, Branch 1 pill PO in the evening. May take additional 1/2 pill as needed for acute anxiety. clonazePAM 3-0 3- No [id number] Take 1 [facility] 1 mg tablet 3-28 04-24 pill PO in i ty of 00:00: 00:00 the AM, 1 [place] 00 :00 PO in the Medical afternoon, Branch 1 pill PO in the evening. May take additional 1/2 pill as needed for acute anxiety. clonazePAM 2023-0 3- No [id number] Take 1 [facility] 1 mg tablet 3-28 04-24 pill PO in i ty of 00:00: 00:00 the AM, 1 [place] 00 :00 PO in the Medical afternoon, Branch 1 pill PO in the evening. May take additional 1/2 pill as needed for acute anxiety. clonazePAM 2023-0 3- No [id number] Take 1 [facility] 1 mg tablet 3-28 04-24 pill PO in i ty of 00:00: 00:00 the AM, 1 [place] 00 :00 PO in the Medical afternoon, Branch 1 pill PO in the evening. May take additional 1/2 pill as needed for acute anxiety. clonazePAM 2023-0 3- No [id number] Take 1 [facility] 1 mg tablet 3-28 04-24 pill PO in i ty of 00:00: 00:00 the AM, 1 [place] 00 :00 PO in the Medical afternoon, Branch 1 pill PO in the evening. May take additional 1/2 pill as needed for acute anxiety. clonazePAM 0 3- No [id number] Take 1 [facility] 1 mg tablet 3-24 pill PO in i ty of 00:00: 00:00 the AM, 1 [place] 00 :00 PO in the Medical afternoon, Branch 1 pill PO in the evening. May take additional 1/2 pill as needed for acute anxiety. clonazePAM 2022-0 3- No [id number] Take 1 [facility] 1 mg tablet 3-24 pill PO in i ty of 00:00: 00:00 the AM, 1 00 :00 PO in the Medical afternoon, Branch 1 pill PO in the evening. May take additional 1/2 pill as needed for acute anxiety. ALLOPURINOL 2022-0 Yes [id number] 300mg TAKE 1 [facility] 300 mg 3-13 TABLET BY it[facility] of tablet 00:00: MOUTH [place] 00 DAILY. [facility] Branch ALLOPURINOL 2022-0 Yes [id number] 300mg TAKE 1 [facility] 300 mg 3-13 TABLET BY ity of tablet 00:00: MOUTH [place] 00 DAILY. [facility] Branch ALLOPURINOL 2022-0 Yes [id number] 300mg TAKE 1 [facility] 300 mg 3-13 TABLET BY ity of tablet 00:00: MOUTH [place] 00 DAILY. [facility] Branch ALLOPURINOL 2022-0 Yes [id number] 300mg TAKE 1 [facility] 300 mg 3-13 TABLET BY ity of tablet 00:00: MOUTH [place] 00 DAILY. [facility] Branch ALLOPURINOL 2022-0 Yes [id number] 300mg TAKE 1 [facility] 300 mg 3-13 TABLET BY ity of tablet 00:00: MOUTH [place] 00 DAILY. [facility] ALLOPURINOL 2022-0 Yes [id number] 300mg TAKE 1 [facility] 300 mg 3-13 TABLET BY ity of tablet 00:00: MOUTH [place] 00 DAILY. [facility] Branch ALLOPURINOL 2022-0 Yes [id number] 300mg TAKE 1 [facility] 300 mg 3-13 TABLET BY ity of tablet 00:00: MOUTH [place] 00 DAILY. [facility] ALLOPURINOL 2022-0 Yes [id number] 300mg TAKE 1 [facility] 300 mg 3-13 TABLET BY ity of tablet 00:00: MOUTH [place] 00 DAILY. [facility] ALLOPURINOL 2022-0 Yes [id number] 300mg TAKE 1 [facility] 300 mg 3-13 TABLET BY ity of tablet 00:00: MOUTH [place] 00 DAILY. Medical Branch ALLOPURINOL 2022-0 Yes [id number] 300mg TAKE 1 [facility] 300 mg 3-13 TABLET BY ity of tablet 00:00: MOUTH [place] 00 DAILY. [facility] Branch ALLOPURINOL 2022-0 Yes [id number] 300mg TAKE 1 [facility] 300 mg 3-13 TABLET BY ity of tablet 00:00: MOUTH [place] 00 DAILY. Medical Branch ALLOPURINOL 2022-0 Yes [id number] 300mg TAKE 1 [facility] 300 mg 3-13 TABLET BY ity of tablet 00:00: MOUTH [place] 00 DAILY. [facility] Branch ALLOPURINOL 2022-0 Yes [id number] 300mg TAKE 1 [facility] 300 mg 3-13 TABLET BY ity of tablet 00:00: MOUTH [place] 00 DAILY. [facility] Branch ALLOPURINOL 2022-0 Yes [id number] 300mg TAKE 1 [facility] 300 mg 3-13 TABLET BY ity of tablet 00:00: MOUTH [place] 00 DAILY. [facility] Branch ALLOPURINOL 2022-0 Yes [id number] 300mg TAKE 1 [facility] 300 mg 3-13 TABLET BY ity of tablet 00:00: MOUTH [place] 00 DAILY. [facility] Branch ALLOPURINOL 2022-0 Yes [id number] 300mg TAKE 1 [facility] 300 mg 3-13 TABLET BY ity of tablet 00:00: MOUTH [place] 00 DAILY. [facility] Branch ALLOPURINOL 2022-0 Yes [id number] 300mg TAKE 1 [facility] 300 mg 3-13 TABLET BY ity of tablet 00:00: MOUTH [place] 00 DAILY. [facility] Branch ALLOPURINOL 2022-0 Yes [id number] 300mg TAKE 1 [facility] 300 mg 3-13 TABLET BY ity of tablet 00:00: MOUTH [place] 00 DAILY. [facility] Branch ALLOPURINOL 2022-0 Yes [id number] 300mg TAKE 1 [facility] 300 mg 3-13 TABLET BY ity of tablet 00:00: MOUTH [place] 00 DAILY. [facility] Branch ALLOPURINOL 2022-0 Yes [id number] 300mg TAKE 1 [facility] 300 mg 3-13 TABLET BY ity of tablet 00:00: MOUTH [place] 00 DAILY. [facility] Branch ALLOPURINOL 2022-0 Yes [id number] 300mg TAKE 1 [facility] 300 mg 3-13 TABLET BY ity of tablet 00:00: MOUTH [place] 00 DAILY. Medical Branch ALLOPURINOL 2022-0 Yes [id number] 300mg TAKE 1 [facility] 300 mg 3-13 TABLET BY ity of tablet 00:00: MOUTH [place] 00 DAILY. [facility] Branch ALLOPURINOL 2022-0 Yes [id number] 300mg TAKE 1 [facility] 300 mg 3-13 TABLET BY ity of tablet 00:00: MOUTH [place] 00 DAILY. [facility] Branch ALLOPURINOL 2022-0 Yes [id number] 300mg TAKE 1 [facility] 300 mg 3-13 TABLET BY ity of tablet 00:00: MOUTH [place] 00 DAILY. [facility] Branch ALLOPURINOL 2022-0 Yes [id number] 300mg TAKE 1 [facility] 300 mg 3-13 TABLET BY ity of tablet 00:00: MOUTH [place] 00 DAILY. [facility] Branch ALLOPURINOL 2022-0 Yes [id number] 300mg TAKE 1 [facility] 300 mg 3-13 TABLET BY ity of tablet 00:00: MOUTH [place] 00 DAILY. [facility] ALLOPURINOL 2022-0 Yes [id number] 300mg TAKE 1 [facility] 300 mg 3-13 TABLET BY ity of tablet 00:00: MOUTH [place] 00 DAILY. [facility] ALLOPURINOL 2022-0 Yes [id number] 300mg TAKE 1 [facility] 300 mg 3-13 TABLET BY ity of tablet 00:00: MOUTH [place] 00 DAILY. [facility] ALLOPURINOL 2022-0 Yes [id number] 300mg TAKE 1 [facility] 300 mg 3-13 TABLET BY ity of tablet 00:00: MOUTH [place] 00 DAILY. [facility] ALLOPURINOL 2022-0 Yes [id number] 300mg TAKE 1 [facility] 300 mg 3-13 TABLET BY ity of tablet 00:00: MOUTH [place] 00 DAILY. [facility] ALLOPURINOL 2022-0 Yes [id number] 300mg TAKE 1 [facility] 300 mg 3-13 TABLET BY ity of tablet 00:00: MOUTH [place] 00 DAILY. [facility] ALLOPURINOL 2022-0 Yes [id number] 300mg TAKE 1 [facility] 300 mg 3-13 TABLET BY ity of tablet 00:00: MOUTH [place] 00 DAILY. [facility] ALLOPURINOL 2022-0 Yes [id number] 300mg TAKE 1 [facility] 300 mg 3-13 TABLET BY ity of tablet 00:00: MOUTH [place] 00 DAILY. [facility] ALLOPURINOL 2022-0 Yes [id number] 300mg TAKE 1 [facility] 300 mg 3-13 TABLET BY ity of tablet 00:00: MOUTH [place] 00 DAILY. Medical Branch ALLOPURINOL 3-0 Yes [id number] 300mg TAKE 1 [facility] 300 mg 3-13 TABLET BY ity of tablet 00:00: MOUTH [place] 00 DAILY. Medical Branch ALLOPURINOL 3-0 Yes [id number] 300mg TAKE 1 [facility] 300 mg 3-13 TABLET BY ity of tablet 00:00: MOUTH [place] 00 DAILY. Medical Branch ALLOPURINOL 3-0 Yes [id number] 300mg TAKE 1 [facility] 300 mg 3-13 TABLET BY ity of tablet 00:00: MOUTH [place] 00 DAILY. Medical Branch clonazePAM 2022-0 Yes [id number] Take 1 [facility] 1 mg tablet 2-28 pill PO in it y of 00:00: the AM, 1 [place] 00 PO in the Medical afternoon, Branch 1 pill PO in the evening. May take additional 1/2 pill as needed for acute anxiety. clonazePAM 2022-0 Yes [id number] Take 1 [facility] 1 mg tablet 2-28 pill PO in it y of 00:00: the AM, 1 [place] 00 PO in the Medical afternoon, Branch 1 pill PO in the evening. May take additional 1/2 pill as needed for acute anxiety. clonazePAM 2022-0 Yes [id number] Take 1 [facility] 1 mg tablet 2-28 pill PO in it y of 00:00: the AM, 1 [place] 00 PO in the Medical afternoon, Branch 1 pill PO in the evening. May take additional 1/2 pill as needed for acute anxiety. clonazePAM 2022-0 Yes [id number] Take 1 [facility] 1 mg tablet 2-28 pill PO in it y of 00:00: the AM, 1 [place] 00 PO in the Medical afternoon, Branch 1 pill PO in the evening. May take additional 1/2 pill as needed for acute anxiety. clonazePAM 2022-0 Yes [id number] Take 1 [facility] 1 mg tablet 2-28 pill PO in it y of 00:00: the AM, 1 [place] 00 PO in the Medical afternoon, Branch 1 pill PO in the evening. May take additional 1/2 pill as needed for acute anxiety. clonazePAM 2022-0 Yes [id number] Take 1 [facility] 1 mg tablet 2-28 pill PO in it y of 00:00: the AM, 1 [place] 00 PO in the Medical afternoon, Branch 1 pill PO in the evening. May take additional 1/2 pill as needed for acute anxiety. clonazePAM 2023-0 Yes [id number] Take 1 [facility] 1 mg tablet 2-28 pill PO in it y of 00:00: the AM, 1 [place] 00 PO in the Medical afternoon, Branch 1 pill PO in the evening. May take additional 1/2 pill as needed for acute anxiety. clonazePAM 2023-0 Yes [id number] Take 1 [facility] 1 mg tablet 2-28 pill PO in it y of 00:00: the AM, 1 [place] 00 PO in the Medical afternoon, Branch 1 pill PO in the evening. May take additional 1/2 pill as needed for acute anxiety. clonazePAM 2023-0 Yes [id number] Take 1 [facility] 1 mg tablet 2-28 pill PO in it y of 00:00: the AM, 1 [place] 00 PO in the Medical afternoon, Branch 1 pill PO in the evening. May take additional 1/2 pill as needed for acute anxiety. clonazePAM 2023-0 Yes [id number] Take 1 [facility] 1 mg tablet 2-28 pill PO in it y of 00:00: the AM, 1 [place] 00 PO in the Medical afternoon, Branch 1 pill PO in the evening. May take additional 1/2 pill as needed for acute anxiety. clonazePAM 3-0 2022- No [id number] Take 1 [facility] 1 mg tablet 2-28 -27 pill PO in i ty of 00:00: 00:00 the AM, 1 [place] 00 :00 PO in the Medical afternoon, Branch 1 pill PO in the evening. May take additional 1/2 pill as needed for acute anxiety. clonazePAM 2023-0 3- No [id number] Take 1 [facility] 1 mg tablet 2-28 -27 pill PO in i ty of 00:00: 00:00 the AM, 1 [place] 00 :00 PO in the Medical afternoon, Branch 1 pill PO in the evening. May take additional 1/2 pill as needed for acute anxiety. clonazePAM 2023-0 2022- No [id number] Take 1 [facility] 1 mg tablet 2-28 -27 pill PO in i ty of 00:00: 00:00 the AM, 1 [place] 00 :00 PO in the Medical afternoon, Branch 1 pill PO in the evening. May take additional 1/2 pill as needed for acute anxiety. clonazePAM 2023-0 2022- No [id number] Take 1 [facility] 1 mg tablet 2-17 09- pill PO in i ty of 00:00: 00:00 the AM, 1 [place] 00 :00 PO in the Medical afternoon, Branch 1 pill PO in the evening. May take additional 1/2 pill as needed for acute anxiety. clonazePAM 3-0 2023- No [id number] Take 1 [facility] 1 mg tablet 2-17 09- pill PO in i ty of 00:00: 00:00 the AM, 1 [place] 00 :00 PO in the Medical afternoon, Branch 1 pill PO in the evening. May take additional 1/2 pill as needed for acute anxiety. clonazePAM 2023-0 2023- No [id number] Take 1 [facility] 1 mg tablet 2- pill PO in i ty of 00:00: 00:00 the AM, 1 [place] 00 :00 PO in the Medical afternoon, Branch 1 pill PO in the evening. May take additional 1/2 pill as needed for acute anxiety. ISOSORBIDE 2023-0 Yes [id number] TAKE 1/2 [facility] MONONITRATE 2-27 TABLET BY ity of 60 mg 24 hr 00:00: MOUTH IN [place] tablet 00 THE Medical MORNING. Branch ISOSORBIDE 2023-0 Yes [id number] TAKE 1/2 [facility] MONONITRATE 2-27 TABLET BY ity of 60 mg 24 hr 00:00: MOUTH IN [place] tablet 00 THE Medical MORNING. Branch ISOSORBIDE 2023-0 Yes [id number] TAKE 1/2 [facility] MONONITRATE 2-27 TABLET BY ity of 60 mg 24 hr 00:00: MOUTH IN [place] tablet 00 THE Medical MORNING. Branch ISOSORBIDE 2023-0 Yes [id number] TAKE 1/2 [facility] MONONITRATE 2-27 TABLET BY ity of 60 mg 24 hr 00:00: MOUTH IN [place] tablet 00 THE Medical MORNING. Branch ISOSORBIDE 2023-0 Yes [id number] TAKE 1/2 [facility] MONONITRATE 2-27 TABLET BY ity of 60 mg 24 hr 00:00: MOUTH IN [place] tablet 00 THE Medical MORNING. Branch ISOSORBIDE 2023-0 Yes [id number] TAKE 1/2 [facility] MONONITRATE 2-27 TABLET BY ity of 60 mg 24 hr 00:00: MOUTH IN [place] tablet 00 THE Medical MORNING. Branch ISOSORBIDE 2023-0 Yes [id number] TAKE 1/2 [facility] MONONITRATE 2-27 TABLET BY ity of 60 mg 24 hr 00:00: MOUTH IN [place] tablet 00 THE Medical MORNING. Branch ISOSORBIDE 2023-0 Yes [id number] TAKE 1/2 [facility] MONONITRATE 2-27 TABLET BY ity of 60 mg 24 hr 00:00: MOUTH IN [place] tablet 00 THE Medical MORNING. Branch ISOSORBIDE 2023-0 Yes [id number] TAKE 1/2 [facility] MONONITRATE 2-27 TABLET BY ity of 60 mg 24 hr 00:00: MOUTH IN [place] tablet 00 THE Medical MORNING. Branch ISOSORBIDE 2023-0 Yes [id number] TAKE 1/2 [facility] MONONITRATE 2-27 TABLET BY ity of 60 mg 24 hr 00:00: MOUTH IN [place] tablet 00 THE Medical MORNING. Branch ISOSORBIDE 2023-0 Yes [id number] TAKE 1/2 [facility] MONONITRATE 2-27 TABLET BY ity of 60 mg 24 hr 00:00: MOUTH IN [place] tablet 00 THE Medical MORNING. Branch ISOSORBIDE 2023-0 Yes [id number] TAKE 1/2 [facility] MONONITRATE 2-27 TABLET BY ity of 60 mg 24 hr 00:00: MOUTH IN [place] tablet 00 THE Medical MORNING. Branch ISOSORBIDE 2023-0 Yes [id number] TAKE 1/2 [facility] MONONITRATE 2-27 TABLET BY ity of 60 mg 24 hr 00:00: MOUTH IN [place] tablet 00 THE Medical MORNING. Branch ISOSORBIDE 2023-0 Yes [id number] TAKE 1/2 [facility] MONONITRATE 2-27 TABLET BY ity of 60 mg 24 hr 00:00: MOUTH IN [place] tablet 00 THE Medical MORNING. Branch ISOSORBIDE 2023-0 Yes [id number] TAKE 1/2 [facility] MONONITRATE 2-27 TABLET BY ity of 60 mg 24 hr 00:00: MOUTH IN [place] tablet 00 THE Medical MORNING. Branch ISOSORBIDE 2023-0 Yes [id number] TAKE 1/2 [facility] MONONITRATE 2-27 TABLET BY ity of 60 mg 24 hr 00:00: MOUTH IN [place] tablet 00 THE Medical MORNING. Branch ISOSORBIDE 2023-0 Yes [id number] TAKE 1/2 [facility] MONONITRATE 2-27 TABLET BY ity of 60 mg 24 hr 00:00: MOUTH IN [place] tablet 00 THE Medical MORNING. Branch ISOSORBIDE 2023-0 Yes [id number] TAKE 1/2 [facility] MONONITRATE 2-27 TABLET BY ity of 60 mg 24 hr 00:00: MOUTH IN [place] tablet 00 THE Medical MORNING. Branch ISOSORBIDE 3-0 Yes [id number] TAKE 1/2 [facility] MONONITRATE 2-27 TABLET BY ity of 60 mg 24 hr 00:00: MOUTH IN [place] tablet 00 THE Medical MORNING. Branch ISOSORBIDE 2022-0 Yes [id number] TAKE 1/2 [facility] MONONITRATE 2-27 TABLET BY ity of 60 mg 24 hr 00:00: MOUTH IN [place] tablet 00 THE Medical MORNING. Branch ISOSORBIDE 2022-0 Yes [id number] TAKE 1/2 [facility] MONONITRATE 2-27 TABLET BY ity of 60 mg 24 hr 00:00: MOUTH IN [place] tablet 00 THE Medical MORNING. Branch ISOSORBIDE 2022-0 Yes [id number] TAKE 1/2 [facility] MONONITRATE 2-27 TABLET BY ity of 60 mg 24 hr 00:00: MOUTH IN [place] tablet 00 THE Medical MORNING. Branch ISOSORBIDE 2022-0 2022- No [id number] TAKE 1/2 [facility] MONONITRATE 2-27 -12 TABLET BY it y of 60 mg 24 hr 00:00: 00:00 MOUTH IN [place] tablet 00 :00 THE Medical MORNING. Branch ISOSORBIDE 2022-0 2022- No [id number] TAKE 1/2 [facility] MONONITRATE 2-27 -12 TABLET BY it y of 60 mg 24 hr 00:00: 00:00 MOUTH IN [place] tablet 00 :00 THE Medical MORNING. Branch ISOSORBIDE 2022-0 2022- No [id number] TAKE 1/2 [facility] MONONITRATE 2-27 -12 TABLET BY it y of 60 mg 24 hr 00:00: 00:00 MOUTH IN [place] tablet 00 :00 THE Medical MORNING. Branch buPROPion 3-0 Yes [id number] 150mg Take 1 U nivers XL 150 mg 2-09 tablet by ity o f 24 hr 00:00: mouth in [place] tablet 00 the Medical morning. Branch ARIPiprazol 2023-0 Yes [id number] 15mg Take 1 [facility] e 15 mg 2-09 tablet by ity of tablet 00:00: mouth in [place] 00 the Medical morning. Branch desvenlafax 2023-0 Yes [id number] 200mg Take 2 [facility] ine 2-09 tablets by ity of succinate 00:00: mouth [place] (PRISTIQ[place] 00 the Medical 100 mg 24 morning. Branch hr tablet buPROPion 2023-0 Yes [id number] 150mg Take 1 [facility] nivers XL 150 mg 2-09 tablet by ity o f 24 hr 00:00: mouth in [place] tablet 00 the Medical morning. Branch ARIPiprazol 3-0 Yes [id number] 15mg Take 1 [facility] e 15 mg 2-09 tablet by ity of tablet 00:00: mouth in [place] 00 the Medical morning. Branch desvenlafax 3-0 Yes [id number] 200mg Take 2 [facility] ine 2-09 tablets by ity of succinate 00:00: mouth in [place] [facility] (PRISTIQ) 00 the Medical 100 mg 24 morning. Branch hr tablet buPROPion 3-0 Yes [id number] 150mg Take 1 U nivers XL 150 mg 2-09 tablet by ity o f 24 hr 00:00: mouth in [place] tablet 00 the Medical morning. Branch ARIPiprazol 3-0 Yes [id number] 15mg Take 1 [facility] e 15 mg 2-09 tablet by ity of tablet 00:00: mouth in [place] 00 the Medical morning. Branch desvenlafax 2023-0 Yes [id number] 200mg Take 2 [facility] ine 2-09 tablets by [facility]y of succinate 00:00: mouth [place] (PRISTIQ[place] 00 the Medical 100 mg 24 morning. Branch hr tablet buPROPion 2023-0 Yes [id number] 150mg Take 1 U nivers XL 150 mg 2-09 tablet by ity o f 24 hr 00:00: mouth in [place] tablet 00 the Medical morning. Branch ARIPiprazol 2023-0 Yes [id number] 15mg Take 1 [facility] e 15 mg 2-09 tablet by ity of tablet 00:00: mouth in [place] 00 the Medical morning. Branch desvenlafax 2023-0 Yes [id number] 200mg Take 2 [facility] ine 2-09 tablets by [facility]y of succinate 00:00: mouth [place] (PRISTIQ[place] 00 the Medical 100 mg 24 morning. Branch hr tablet buPROPion 2023-0 Yes [id number] 150mg Take 1 [facility] nivers XL 150 mg 2-09 tablet by ity o f 24 hr 00:00: mouth in [place] tablet 00 the Medical morning. Branch ARIPiprazol 2023-0 Yes [id number] 15mg Take 1 [facility] e 15 mg 2-09 tablet by ity of tablet 00:00: mouth in [place] 00 the Medical morning. Branch desvenlafax 2023-0 Yes [id number] 200mg Take 2 [facility] ine 2-09 tablets by [facility]y of succinate 00:00: mouth [place] (PRISTIQ[place] 00 the Medical 100 mg 24 morning. Branch hr tablet buPROPion 2023-0 Yes [id number] 150mg Take 1 [facility] nivers XL 150 mg 2-09 tablet by ity o f 24 hr 00:00: mouth in [place] tablet 00 the Medical morning. Branch ARIPiprazol 2023-0 Yes [id number] 15mg Take 1 [facility] e 15 mg 2-09 tablet by ity of tablet 00:00: mouth in [place] 00 the Medical morning. Branch desvenlafax 2023-0 Yes [id number] 200mg Take 2 [facility] 2-09 tablets by [facility] [place] [place] ([facility] 00 the Medical 100 mg 24 morning. Branch hr tablet buPROPion 2023-0 Yes [id number] 150mg Take 1 [facility] XL 150 mg 2-09 tablet by ity o f 24 hr 00:00: mouth in [place] tablet 00 the Medical morning. Branch ARIPiprazol 2023-0 Yes [id number] 15mg Take 1 [facility] 15 mg 2-09 tablet by it[facility] of tablet 00:00: mouth in [place] 00 the Medical morning. Branch desvenlafax 2023-0 Yes [id number] 200mg Take 2 [facility] 2-09 tablets by [facility] 00:00: mouth [place] ([facility] 00 the Medical 100 mg 24 morning. Branch hr tablet buPROPion 2023-0 Yes [id number] 150mg Take 1 [facility] XL 150 mg 2-09 tablet by ity o f 24 hr 00:00: mouth in [place] tablet 00 the Medical morning. Branch ARIPiprazol 2023-0 Yes [id number] 15mg Take 1 [facility] 15 mg 2-09 tablet by it[facility] of tablet 00:00: mouth in [place] 00 the Medical morning. Branch desvenlafax 2023-0 Yes [id number] 200mg Take 2 [facility] 2-09 tablets by [facility] [place] 00 the Medical 100 mg 24 morning. Branch hr tablet buPROPion 2023-0 Yes [id number] 150mg Take 1 [facility] XL 150 mg 2-09 tablet by ity o f 24 hr 00:00: mouth in [place] tablet 00 the Medical morning. Branch ARIPiprazol 3-0 Yes [id number] 15mg Take 1 [facility] 15 mg 2-09 tablet by it[facility] of tablet 00:00: mouth in [place] 00 the Medical morning. Branch desvenlafax 3-0 Yes [id number] 200mg Take 2 [facility] in[facility] 2-09 tablets by it[facility] of succinate 00:00: mouth in [place] [facility] (PRISTIQ) 00 the Medical 100 mg 24 morning. Branch hr tablet buPROPion 3-0 Yes [id number] 150mg Take 1 [facility] nivers XL 150 mg 2-09 tablet by ity o f 24 hr 00:00: mouth in [place] tablet 00 the Medical morning. Branch ARIPiprazol 3-0 Yes [id number] 15mg Take 1 [facility] 15 mg 2-09 tablet by ity of tablet 00:00: mouth in [place] 00 the Medical morning. Branch desvenlafax 2023-0 Yes [id number] 200mg Take 2 [facility] 2-09 tablets by [facility] [place] 00 the Medical 100 mg 24 morning. Branch hr tablet buPROPion 2023-0 Yes [id number] 150mg Take 1 [facility] XL 150 mg 2-09 tablet by ity o f 24 hr 00:00: mouth in [place] tablet 00 the Medical morning. Branch ARIPiprazol 2023-0 Yes [id number] 15mg Take 1 [facility] 15 mg 2-09 tablet by ity of tablet 00:00: mouth in [place] 00 the Medical morning. Branch desvenlafax 2023-0 Yes [id number] 200mg Take 2 [facility] 2-09 tablets by [facility] succ[facility] 00:00: mouth [place] ([facility] 00 the Medical 100 mg 24 morning. Branch hr tablet buPROPion 2023-0 Yes [id number] 150mg Take 1 [facility] XL 150 mg 2-09 tablet by ity o f 24 hr 00:00: mouth in [place] tablet 00 the Medical morning. Branch ARIPiprazol 2023-0 Yes [id number] 15mg Take 1 [facility] 15 mg 2-09 tablet by it[facility] of tablet 00:00: mouth in [place] 00 the Medical morning. Branch desvenlafax 2023-0 Yes [id number] 200mg Take 2 [facility] 2-09 tablets by [facility] succ[facility] 00:00: mouth [place] ([facility] 00 the Medical 100 mg 24 morning. Branch hr tablet buPROPion 2023-0 Yes [id number] 150mg Take 1 [facility] n[facility] XL 150 mg 2-09 tablet by ity o f 24 hr 00:00: mouth in [place] tablet 00 the Medical morning. Branch ARIPiprazol 2023-0 Yes [id number] 15mg Take 1 [facility] e 15 mg 2-09 tablet by ity of tablet 00:00: mouth in [place] 00 the Medical morning. Branch desvenlafax 2023-0 Yes [id number] 200mg Take 2 [facility] 2-09 tablets by [facility] [place] 00:[place] 00 the Medical 100 mg 24 morning. Branch hr tablet buPROPion 2023-0 Yes [id number] 150mg Take 1 [facility] XL 150 mg 2-09 tablet by ity o f 24 hr 00:00: mouth in [place] tablet 00 the Medical morning. Branch ARIPiprazol 2023-0 Yes [id number] 15mg Take 1 [facility] 15 mg 2-09 tablet by ity of tablet 00:00: mouth in [place] 00 the Medical morning. Branch desvenlafax 2023-0 Yes [id number] 200mg Take 2 [facility] 2-09 tablets by [facility] of succinate 00:00: mouth [place] ([facility] 00 the Medical 100 mg 24 morning. Branch hr tablet buPROPion 2023-0 Yes [id number] 150mg Take 1 [facility] XL 150 mg 2-09 tablet by ity o f 24 hr 00:00: mouth in [place] tablet 00 the Medical morning. Branch ARIPiprazol 2023-0 Yes [id number] 15mg Take 1 [facility] e 15 mg 2-09 tablet by ity of tablet 00:00: mouth in [place] 00 the Medical morning. Branch desvenlafax 2023-0 Yes [id number] 200mg Take 2 [facility] 2-09 tablets by [facility] [place] 00:[place] 00 the Medical 100 mg 24 morning. Branch hr tablet buPROPion 3-0 Yes [id number] 150mg Take 1 [facility] nivers XL 150 mg 2-09 tablet by ity o f 24 hr 00:00: mouth in [place] tablet 00 the Medical morning. Branch ARIPiprazol 3-0 Yes [id number] 15mg Take 1 [facility] e 15 mg 2-09 tablet by ity of tablet 00:00: mouth in [place] 00 the Medical morning. Branch desvenlafax 2023-0 Yes [id number] 200mg Take 2 [facility] in[facility] 2-09 tablets by ity of succinate 00:00: mouth in [facility] (PRISTIQ) 00 the Medical 100 mg 24 morning. Branch hr tablet buPROPion 3-0 Yes [id number] 150mg Take 1 [facility] nivers XL 150 mg 2-09 tablet by ity o f 24 hr 00:00: mouth in [place] tablet 00 the Medical morning. Branch ARIPiprazol 3-0 Yes [id number] 15mg Take 1 [facility] e 15 mg 2-09 tablet by ity of tablet 00:00: mouth in [place] 00 the Medical morning. Branch desvenlafax 2023-0 Yes [id number] 200mg Take 2 [facility] in[facility] 2-09 tablets by [facility] [place] 00:[place] 00 the Medical 100 mg 24 morning. Branch hr tablet buPROPion 2023-0 Yes [id number] 150mg Take 1 [facility] nivers XL 150 mg 2-09 tablet by ity o f 24 hr 00:00: mouth in [place] tablet 00 the Medical morning. Branch ARIPiprazol 2023-0 Yes [id number] 15mg Take 1 [facility] e 15 mg 2-09 tablet by ity of tablet 00:00: mouth in [place] 00 the Medical morning. Branch desvenlafax 2023-0 Yes [id number] 200mg Take 2 [facility] in[facility] 2-09 tablets by ity of succinate 00:00: mouth [place] ([facility] 00 the Medical 100 mg 24 morning. Branch hr tablet buPROPion 2023-0 Yes [id number] 150mg Take 1 [facility] nivers XL 150 mg 2-09 tablet by ity o f 24 hr 00:00: mouth in [place] tablet 00 the Medical morning. Branch ARIPiprazol 2023-0 Yes [id number] 15mg Take 1 [facility] e 15 mg 2-09 tablet by ity of tablet 00:00: mouth in [place] 00 the Medical morning. Branch desvenlafax 2023-0 Yes [id number] 200mg Take 2 [facility] in[facility] 2-09 tablets by it[facility] of succinate 00:00: mouth [place] ([facility] 00 the Medical 100 mg 24 morning. Branch hr tablet buPROPion 2023-0 Yes [id number] 150mg Take 1 [facility] nivers XL 150 mg 2-09 tablet by ity o f 24 hr 00:00: mouth in [place] tablet 00 the Medical morning. Branch ARIPiprazol 2023-0 Yes [id number] 15mg Take 1 [facility] e 15 mg 2-09 tablet by ity of tablet 00:00: mouth in [place] 00 the Medical morning. Branch desvenlafax 2023-0 Yes [id number] 200mg Take 2 [facility] in[facility] 2-09 tablets by [facility] succ[place] 00:[place] ([place] 00 the Medical 100 mg 24 morning. Branch hr tablet buPROPion 2023-0 Yes [id number] 150mg Take 1 [facility] nivers XL 150 mg 2-09 tablet by ity o f 24 hr 00:00: mouth in [place] tablet 00 the Medical morning. Branch ARIPiprazol 2023-0 Yes [id number] 15mg Take 1 [facility] e 15 mg 2-09 tablet by ity of tablet 00:00: mouth in [place] 00 the Medical morning. Branch desvenlafax 2023-0 Yes [id number] 200mg Take 2 [facility] in[facility] 2-09 tablets by ity of succinate 00:00: mouth [place] ([facility] 00 the Medical 100 mg 24 morning. Branch hr tablet buPROPion 2023-0 Yes [id number] 150mg Take 1 [facility] nivers XL 150 mg 2-09 tablet by ity o f 24 hr 00:00: mouth in [place] tablet 00 the Medical morning. Branch ARIPiprazol 2023-0 Yes [id number] 15mg Take 1 [facility] e 15 mg 2-09 tablet by ity of tablet 00:00: mouth in [place] 00 the Medical morning. Branch desvenlafax 2023-0 Yes [id number] 200mg Take 2 [facility] in[facility] 2-09 tablets by ity of succinate 00:00: mouth [place] ([facility]IST[facility] 00 the Medical 100 mg 24 morning. Branch hr tablet buPROPion 2023-0 Yes [id number] 150mg Take 1 [facility] nivers XL 150 mg 2-09 tablet by ity o f 24 hr 00:00: mouth in [place] tablet 00 the Medical morning. Branch ARIPiprazol 3-0 Yes [id number] 15mg Take 1 [facility] e 15 mg 2-09 tablet by ity of tablet 00:00: mouth in [place] 00 the Medical morning. Branch desvenlafax 2023-0 Yes [id number] 200mg Take 2 [facility] ine 2-09 tablets by ity of succinate 00:00: mouth in [facility] (PRISTIQ) 00 the Medical 100 mg 24 morning. Branch hr tablet buPROPion 3-0 Yes [id number] 150mg Take 1 [facility] nivers XL 150 mg 2-09 tablet by ity o f 24 hr 00:00: mouth in [place] tablet 00 the Medical morning. Branch ARIPiprazol 3-0 Yes [id number] 15mg Take 1 [facility] e 15 mg 2-09 tablet by ity of tablet 00:00: mouth in [place] 00 the Medical morning. Branch desvenlafax 2023-0 Yes [id number] 200mg Take 2 [facility] ine 2-09 tablets by ity of succinate 00:00: mouth [place] ([facility]IST[facility] 00 the Medical 100 mg 24 morning. Branch hr tablet buPROPion 2023-0 Yes [id number] 150mg Take 1 [facility] nivers XL 150 mg 2-09 tablet by ity o f 24 hr 00:00: mouth in [place] tablet 00 the Medical morning. Branch ARIPiprazol 2023-0 Yes [id number] 15mg Take 1 [facility] e 15 mg 2-09 tablet by ity of tablet 00:00: mouth in [place] 00 the Medical morning. Branch desvenlafax 2023-0 Yes [id number] 200mg Take 2 [facility] in[facility] 2-09 tablets by ity of succinate 00:00: mouth [place] (PRISTIQ) 00 the Medical 100 mg 24 morning. Branch hr tablet buPROPion 2023-0 Yes [id number] 150mg Take 1 [facility] nivers XL 150 mg 2-09 tablet by ity o f 24 hr 00:00: mouth in [place] tablet 00 the Medical morning. Branch ARIPiprazol 2023-0 Yes [id number] 15mg Take 1 [facility] e 15 mg 2-09 tablet by ity of tablet 00:00: mouth in [place] 00 the Medical morning. Branch desvenlafax 2023-0 Yes [id number] 200mg Take 2 [facility] in[facility] 2-09 tablets by [facility] of succinate 00:00: [place] ([place] 00 the Medical 100 mg 24 morning. Branch hr tablet buPROPion 2023-0 Yes [id number] 150mg Take 1 [facility] nivers XL 150 mg 2-09 tablet by ity o f 24 hr 00:00: mouth in [place] tablet 00 the Medical morning. Branch ARIPiprazol 2023-0 Yes [id number] 15mg Take 1 [facility] e 15 mg 2-09 tablet by ity of tablet 00:00: mouth in [place] 00 the Medical morning. Branch desvenlafax 2023-0 Yes [id number] 200mg Take 2 [facility] in[facility] 2-09 tablets by [facility] of succinate 00:00: [place] ([place] 00 the Medical 100 mg 24 morning. Branch hr tablet buPROPion 2023-0 Yes [id number] 150mg Take 1 [facility] nivers XL 150 mg 2-09 tablet by ity o f 24 hr 00:00: mouth in [place] tablet 00 the Medical morning. Branch ARIPiprazol 2023-0 Yes [id number] 15mg Take 1 [facility] e 15 mg 2-09 tablet by ity of tablet 00:00: mouth in [place] 00 the Medical morning. Branch desvenlafax 2023-0 Yes [id number] 200mg Take 2 [facility] in[facility] 2-09 tablets by ity of succinate 00:00: mouth [place] (PRISTIQ[place] 00 the Medical 100 mg 24 morning. Branch hr tablet buPROPion 2023-0 Yes [id number] 150mg Take 1 [facility] nivers XL 150 mg 2-09 tablet by ity o f 24 hr 00:00: mouth in [place] tablet 00 the Medical morning. Branch ARIPiprazol 2023-0 Yes [id number] 15mg Take 1 [facility] e 15 mg 2-09 tablet by ity of tablet 00:00: mouth in [place] 00 the Medical morning. Branch desvenlafax 2023-0 Yes [id number] 200mg Take 2 [facility] ine 2-09 tablets by ity of succinate 00:00: mouth [place] (PRISTIQ) 00 the Medical 100 mg 24 morning. Branch hr tablet buPROPion 2023-0 Yes [id number] 150mg Take 1 [facility] nivers XL 150 mg 2-09 tablet by ity o f 24 hr 00:00: mouth in [place] tablet 00 the Medical morning. Branch ARIPiprazol 3-0 Yes [id number] 15mg Take 1 [facility] e 15 mg 2-09 tablet by ity of tablet 00:00: mouth in [place] 00 the Medical morning. Branch desvenlafax 2023-0 Yes [id number] 200mg Take 2 [facility] ine 2-09 tablets by ity of succinate 00:00: mouth in [facility] s (PRISTIQ) 00 the Medical 100 mg 24 morning. Branch hr tablet buPROPion 2023-0 Yes [id number] 150mg Take 1 U nivers XL 150 mg 2-09 tablet by ity o f 24 hr 00:00: mouth in [place] tablet 00 the Medical morning. Branch ARIPiprazol 3-0 Yes [id number] 15mg Take 1 [facility] e 15 mg 2-09 tablet by ity of tablet 00:00: mouth in [place] 00 the Medical morning. Branch desvenlafax 2023-0 Yes [id number] 200mg Take 2 [facility] in[facility] 2-09 tablets by [facility] of succinate 00:00: [place] ([place] 00 the Medical 100 mg 24 morning. Branch hr tablet buPROPion 2023-0 Yes [id number] 150mg Take 1 [facility] nivers XL 150 mg 2-09 tablet by ity o f 24 hr 00:00: mouth in [place] tablet 00 the Medical morning. Branch ARIPiprazol 2023-0 Yes [id number] 15mg Take 1 [facility] e 15 mg 2-09 tablet by ity of tablet 00:00: mouth in [place] 00 the Medical morning. Branch desvenlafax 2023-0 Yes [id number] 200mg Take 2 [facility] ine 2-09 tablets by ity of succinate 00:00: mouth [place] (PRISTIQ) 00 the Medical 100 mg 24 morning. Branch hr tablet buPROPion 2023-0 Yes [id number] 150mg Take 1 [facility] nivers XL 150 mg 2-09 tablet by ity o f 24 hr 00:00: mouth in [place] tablet 00 the Medical morning. Branch ARIPiprazol 2023-0 Yes [id number] 15mg Take 1 [facility] e 15 mg 2-09 tablet by ity of tablet 00:00: mouth in [place] 00 the Medical morning. Branch desvenlafax 2023-0 Yes [id number] 200mg Take 2 [facility] ine 2-09 tablets by ity of succinate 00:00: mouth in [facility] s (PRISTIQ) 00 the Medical 100 mg 24 morning. Branch hr tablet buPROPion 2023-0 Yes [id number] 150mg Take 1 U nivers XL 150 mg 2-09 tablet by ity o f 24 hr 00:00: mouth in [place] tablet 00 the Medical morning. Branch ARIPiprazol 2023-0 Yes [id number] 15mg Take 1 [facility] e 15 mg 2-09 tablet by ity of tablet 00:00: mouth in [place] 00 the Medical morning. Branch desvenlafax 2023-0 Yes [id number] 200mg Take 2 [facility] ine 2-09 tablets by ity of succinate 00:00: mouth in [facility] (PRISTIQ) 00 the Medical 100 mg 24 morning. Branch hr tablet buPROPion 2023-0 Yes [id number] 150mg Take 1 U nivers XL 150 mg 2-09 tablet by ity o f 24 hr 00:00: mouth in [place] tablet 00 the Medical morning. Branch ARIPiprazol 2023-0 Yes [id number] 15mg Take 1 [facility] e 15 mg 2-09 tablet by ity of tablet 00:00: mouth in [place] 00 the Medical morning. Branch desvenlafax 2023-0 Yes [id number] 200mg Take 2 [facility] ine 2-09 tablets by [facility] of succinate 00:00: [place] ([place] 00 the Medical 100 mg 24 morning. Branch hr tablet buPROPion 2023-0 Yes [id number] 150mg Take 1 U nivers XL 150 mg 2-09 tablet by ity o f 24 hr 00:00: mouth in [place] tablet 00 the Medical morning. Branch ARIPiprazol 2023-0 Yes [id number] 15mg Take 1 [facility] e 15 mg 2-09 tablet by ity of tablet 00:00: mouth in [place] 00 the Medical morning. Branch desvenlafax 2023-0 Yes [id number] 200mg Take 2 [facility] ine 2-09 tablets by ity of succinate 00:00: mouth [place] (PRISTIQ) 00 the Medical 100 mg 24 morning. Branch hr tablet buPROPion 2023-0 Yes [id number] 150mg Take 1 [facility] nivers XL 150 mg 2-09 tablet by ity o f 24 hr 00:00: mouth in [place] tablet 00 the Medical morning. Branch ARIPiprazol 2023-0 Yes [id number] 15mg Take 1 [facility] e 15 mg 2-09 tablet by ity of tablet 00:00: mouth in [place] 00 the Medical morning. Branch desvenlafax 2023-0 Yes [id number] 200mg Take 2 [facility] ine 2-09 tablets by ity of succinate 00:00: mouth in [facility] (PRISTIQ) 00 the Medical 100 mg 24 morning. Branch hr tablet buPROPion 2023-0 Yes [id number] 150mg Take 1 U nivers XL 150 mg 2-09 tablet by ity o f 24 hr 00:00: mouth in [place] tablet 00 the Medical morning. Branch ARIPiprazol 3-0 Yes [id number] 15mg Take 1 [facility] e 15 mg 2-09 tablet by ity of tablet 00:00: mouth in [place] 00 the Medical morning. Branch desvenlafax 2023-0 Yes [id number] 200mg Take 2 [facility] ine 2-09 tablets by ity of succinate 00:00: mouth [place] (PRISTIQ) 00 the Medical 100 mg 24 morning. Branch hr tablet buPROPion 2023-0 Yes [id number] 150mg Take 1 [facility] nivers XL 150 mg 2-09 tablet by ity o f 24 hr 00:00: mouth in [place] tablet 00 the Medical morning. Branch ARIPiprazol 2023-0 Yes [id number] 15mg Take 1 [facility] e 15 mg 2-09 tablet by ity of tablet 00:00: mouth in [place] 00 the Medical morning. Branch desvenlafax 2023-0 Yes [id number] 200mg Take 2 [facility] ine 2-09 tablets by ity of succinate 00:00: mouth [place] (PRISTIQ) 00 the Medical 100 mg 24 morning. Branch hr tablet buPROPion 2023-0 Yes [id number] 150mg Take 1 U nivers XL 150 mg 2-09 tablet by ity o f 24 hr 00:00: mouth in [place] tablet 00 the Medical morning. Branch ARIPiprazol 3-0 Yes [id number] 15mg Take 1 [facility] e 15 mg 2-09 tablet by ity of tablet 00:00: mouth in [place] 00 the Medical morning. Branch desvenlafax 2023-0 Yes [id number] 200mg Take 2 [facility] ine 2-09 tablets by ity of succinate 00:00: mouth [place] (PRISTIQ) 00 the Medical 100 mg 24 morning. Branch hr tablet buPROPion 3-0 Yes [id number] 150mg Take 1 U nivers XL 150 mg 2-09 tablet by ity o f 24 hr 00:00: mouth in [place] tablet 00 the Medical morning. Branch ARIPiprazol 3-0 Yes [id number] 15mg Take 1 [facility] e 15 mg 2-09 tablet by ity of tablet 00:00: mouth in [place] 00 the Medical morning. Branch desvenlafax 3-0 Yes [id number] 200mg Take 2 [facility] ine 2-09 tablets by ity of succinate 00:00: mouth [place] (PRISTIQ) 00 the Medical 100 mg 24 morning. Branch hr tablet buPROPion 3-0 Yes [id number] 150mg Take 1 [facility] nivers XL 150 mg 2-09 tablet by ity o f 24 hr 00:00: mouth in [place] tablet 00 the Medical morning. Branch ARIPiprazol 3-0 Yes [id number] 15mg Take 1 [facility] e 15 mg 2-09 tablet by ity of tablet 00:00: mouth in [place] 00 the Medical morning. Branch desvenlafax 2023-0 Yes [id number] 200mg Take 2 [facility] ine 2-09 tablets by ity of succinate 00:00: mouth [place] (PRISTIQ) 00 the Medical 100 mg 24 morning. Branch hr tablet buPROPion 2023-0 Yes [id number] 150mg Take 1 [facility] nivers XL 150 mg 2-09 tablet by ity o f 24 hr 00:00: mouth in [place] tablet 00 the Medical morning. Branch ARIPiprazol 2023-0 Yes [id number] 15mg Take 1 [facility] e 15 mg 2-09 tablet by ity of tablet 00:00: mouth in [place] 00 the Medical morning. Branch desvenlafax 2023-0 Yes [id number] 200mg Take 2 [facility] ine 2-09 tablets by ity of succinate 00:00: mouth in [facility] (PRISTIQ) 00 the Medical 100 mg 24 morning. Branch hr tablet buPROPion 2023-0 Yes [id number] 150mg Take 1 [facility] nivers XL 150 mg 2-09 tablet by ity o f 24 hr 00:00: mouth in [place] tablet 00 the Medical morning. Branch ARIPiprazol 2023-0 Yes [id number] 15mg Take 1 [facility] e 15 mg 2-09 tablet by ity of tablet 00:00: mouth in [place] 00 the Medical morning. Branch desvenlafax 3-0 Yes [id number] 200mg Take 2 [facility] ine 2-09 tablets by ity of succinate 00:00: mouth in [place] [facility] (PRISTIQ) 00 the Medical 100 mg 24 morning. Branch hr tablet buPROPion 2023-0 3- No [id number] 150mg Take 1 [facility] XL 150 mg 2-09 05-18 tablet by ity of 24 hr 00:00: 00:00 mouth in [place] tablet 00 :00 the Medical morning. Branch ARIPiprazol 2023-0 3- No [id number] 15mg Take 1 [facility] e 15 mg 2-09 05-18 tablet by ity of tablet 00:00: 00:00 mouth in [place] 00 :00 the Medical morning. Branch desvenlafax 2023-0 3- No [id number] 200mg Take 2 [facility] ine 2-09 05-18 tablets by ity of succinate 00:00: 00:00 mouth in [facility] (PRISTIQ) 00 :00 the Medical 100 mg 24 morning. Branch hr tablet buPROPion 2023-0 3- No [id number] 150mg Take 1 [facility] XL 150 mg 2-09 05-18 tablet by ity of 24 hr 00:00: 00:00 mouth in [place] tablet 00 :00 the Medical morning. Branch ARIPiprazol 2023-0 3- No [id number] 15mg Take 1 [facility] e 15 mg 2- 05-18 tablet by ity of tablet 00:00: 00:00 mouth in [place] 00 :00 the Medical morning. Branch desvenlafax 3-0 2022- No [id number] 200mg Take 2 [facility] ine 2- 05-18 tablets by ity of succinate 00:00: 00:00 mouth in [place] as (PRISTIQ) 00 :00 the Medical 100 mg 24 morning. Branch hr tablet buPROPion 2023-0 3- No [id number] 150mg Take 1 [facility] XL 150 mg 2- 05-18 tablet by ity of 24 hr 00:00: 00:00 mouth in [place] tablet 00 :00 the Medical morning. Branch ARIPiprazol 2022-0 2022- No [id number] 15mg Take 1 [facility] e 15 mg 2-02 25-18 tablet by ity of tablet 00:00: 00:00 mouth in [place] 00 :00 the Medical morning. [place] desvenlafax 2022-0 2022- No [id number] 200mg Take 2 [facility] ine 2-02 25-18 tablets by ity of succinate 00:00: 00:00 mouth in [facility] [place] as (PRISTIQ) 00 :00 the Medical 100 mg 24 morning. Branch hr tablet buPROPion 2022-0 2022- No [id number] 150mg Take 1 [facility] XL 150 mg 2-18 tablet by ity of 24 hr 00:00: 00:00 mouth in [place] tablet 00 :00 the Medical morning. Branch ARIPiprazol 2022-0 2022- No [id number] 15mg Take 1 [facility] e 15 mg 08-01-18 tablet by ity of tablet 00:00: 00:00 mouth in [place] 00 :00 the Medical morning. Branch desvenlafax 3-0 2022- No [id number] 200mg Take 2 [facility] ine 2- 05-18 tablets by ity of succinate 00:00: 00:00 mouth in [place] as (PRISTIQ) 00 :00 the Medical 100 mg 24 morning. Branch hr tablet buPROPion 2023-0 2022- No [id number] 150mg Take 1 [facility] XL 150 mg 2- 05-18 tablet by ity of 24 hr 00:00: 00:00 mouth in [place] tablet 00 :00 the Medical morning. Branch ARIPiprazol 2023-0 2023- No [id number] 15mg Take 1 [facility] e 15 mg 08-0118 tablet by ity of tablet 00:00: 00:00 mouth in [place] 00 :00 the Medical morning. [place] desvenlafax 2022-0 2022- No [id number] 200mg Take 2 [facility] ine 08-0118 tablets by ity of succinate 00:00: 00:00 mouth in [facility] [place] as (PRISTIQ) 00 :00 the Medical 100 mg 24 morning. Branch hr tablet buPROPion 3-0 2022- No [id number] 150mg Take 1 [facility] XL 150 mg 08-01 tablet by ity of 24 hr 00:00: 00:00 mouth in [place] tablet 00 :00 the Medical morning. [place] ARIPiprazol 2022-0 2022- No [id number] 15mg Take 1 [facility] e 15 mg 08-01 tablet by ity of tablet 00:00: 00:00 mouth in [place] 00 :00 the Medical morning. [place] desvenlafax 2022-2022- No [id number] 200mg Take 2 [facility] ine 08-0118 tablets by ity of succinate 00:00: 00:00 mouth in [facility] [place] as (PRISTIQ) 00 :00 the Medical 100 mg 24 morning. Branch hr tablet empaglifloz 2023-0 Yes [id number] 10mg Take 1 [facility] in 2-07 tablet by ity of (JARDIANCE) 00:00: mouth [place] 10 mg 00 daily Medical before Branch breakfast. empaglifloz 2023-0 Yes [id number] 10mg Take 1 [facility] in 2-07 tablet by ity of (JARDIANCE) 00:00: mouth [place] 10 mg 00 daily Medical before Branch breakfast. empaglifloz 2023-0 Yes [id number] 10mg Take 1 [facility] in 2-07 tablet by ity of (JARDIANCE) 00:00: mouth [place] 10 mg 00 daily Medical before Branch breakfast. empaglifloz 2023-0 Yes [id number] 10mg Take 1 [facility] in 2-07 tablet by ity of (JARDIANCE) 00:00: mouth [place] 10 mg 00 daily Medical before Branch breakfast. empaglifloz 2023-0 Yes [id number] 10mg Take 1 [facility] in 2-07 tablet by ity of (JARDIANCE) 00:00: mouth [place] 10 mg 00 daily Medical before Branch breakfast. empaglifloz 2023-0 Yes [id number] 10mg Take 1 [facility] in 2-07 tablet by ity of (JARDIANCE) 00:00: mouth [place] 10 mg 00 daily Medical before Branch breakfast. empaglifloz 2023-0 Yes [id number] 10mg Take 1 [facility] in 2-07 tablet by ity of (JARDIANCE) 00:00: mouth [place] 10 mg 00 daily Medical before Branch breakfast. empaglifloz 2023-0 Yes [id number] 10mg Take 1 [facility] in 2-07 tablet by ity of (JARDIANCE) 00:00: mouth [place] 10 mg 00 daily Medical before Branch breakfast. empaglifloz 2023-0 Yes [id number] 10mg Take 1 [facility] in 2-07 tablet by ity of (JARDIANCE) 00:00: mouth [place] 10 mg 00 daily Medical before Branch breakfast. empaglifloz 2023-0 Yes [id number] 10mg Take 1 [facility] in 2-07 tablet by ity of (JARDIANCE) 00:00: mouth [place] 10 mg 00 daily Medical before Branch breakfast. empaglifloz 2023-0 Yes [id number] 10mg Take 1 [facility] in 2-07 tablet by ity of (JARDIANCE) 00:00: mouth [place] 10 mg 00 daily Medical before Branch breakfast. empaglifloz 2023-0 Yes [id number] 10mg Take 1 [facility] in 2-07 tablet by ity of (JARDIANCE) 00:00: mouth [place] 10 mg 00 daily Medical before Branch breakfast. empaglifloz 2023-0 Yes [id number] 10mg Take 1 [facility] in 2-07 tablet by ity of (JARDIANCE) 00:00: mouth [place] 10 mg 00 daily Medical before Branch breakfast. empaglifloz 2023-0 Yes [id number] 10mg Take 1 [facility] in 2-07 tablet by ity of (JARDIANCE) 00:00: mouth [place] 10 mg 00 daily Medical before Branch breakfast. empaglifloz 2023-0 Yes [id number] 10mg Take 1 [facility] in 2-07 tablet by ity of (JARDIANCE) 00:00: mouth [place] 10 mg 00 daily Medical before Branch breakfast. empaglifloz 2023-0 Yes [id number] 10mg Take 1 [facility] in 2-07 tablet by ity of (JARDIANCE) 00:00: mouth [place] 10 mg 00 daily Medical before Branch breakfast. empaglifloz 2023-0 Yes [id number] 10mg Take 1 [facility] in 2-07 tablet by ity of (JARDIANCE) 00:00: mouth [place] 10 mg 00 daily Medical before Branch breakfast. empaglifloz 2023-0 Yes [id number] 10mg Take 1 [facility] in 2-07 tablet by ity of (JARDIANCE) 00:00: mouth [place] 10 mg 00 daily Medical before Branch breakfast. empaglifloz 2023-0 Yes [id number] 10mg Take 1 [facility] in 2-07 tablet by ity of (JARDIANCE) 00:00: mouth [place] 10 mg 00 daily Medical before Branch breakfast. empaglifloz 2023-0 Yes [id number] 10mg Take 1 [facility] in 2-07 tablet by ity of (JARDIANCE) 00:00: mouth [place] 10 mg 00 daily Medical before Branch breakfast. empaglifloz 2023-0 Yes [id number] 10mg Take 1 [facility] in 2-07 tablet by ity of (JARDIANCE) 00:00: mouth [place] 10 mg 00 daily Medical before Branch breakfast. empaglifloz 2023-0 Yes [id number] 10mg Take 1 [facility] in 2-07 tablet by ity of (JARDIANCE) 00:00: mouth [place] 10 mg 00 daily Medical before Branch breakfast. empaglifloz 2023-0 Yes [id number] 10mg Take 1 [facility] in 2-07 tablet by ity of (JARDIANCE) 00:00: mouth [place] 10 mg 00 daily Medical before Branch breakfast. empaglifloz 2023-0 Yes [id number] 10mg Take 1 [facility] in 2-07 tablet by ity of (JARDIANCE) 00:00: mouth [place] 10 mg 00 daily Medical before Branch breakfast. empaglifloz 2023-0 Yes [id number] 10mg Take 1 [facility] in 2-07 tablet by ity of (JARDIANCE) 00:00: mouth [place] 10 mg 00 daily Medical before Branch breakfast. empaglifloz 2023-0 Yes [id number] 10mg Take 1 [facility] in 2-07 tablet by ity of (JARDIANCE) 00:00: mouth [place] 10 mg 00 daily Medical before Branch breakfast. empaglifloz 2023-0 Yes [id number] 10mg Take 1 [facility] in 2-07 tablet by ity of (JARDIANCE) 00:00: mouth [place] 10 mg 00 daily Medical before Branch breakfast. empaglifloz 2023-0 Yes [id number] 10mg Take 1 [facility] in 2-07 tablet by ity of (JARDIANCE) 00:00: mouth [place] 10 mg 00 daily Medical before Branch breakfast. empaglifloz 2023-0 Yes [id number] 10mg Take 1 [facility] in 2-07 tablet by ity of (JARDIANCE) 00:00: mouth [place] 10 mg 00 daily Medical before Branch breakfast. empaglifloz 2023-0 Yes [id number] 10mg Take 1 [facility] in 2-07 tablet by ity of (JARDIANCE) 00:00: mouth [place] 10 mg 00 daily Medical before Branch breakfast. empaglifloz 2023-0 Yes [id number] 10mg Take 1 [facility] in 2-07 tablet by ity of (JARDIANCE) 00:00: mouth [place] 10 mg 00 daily Medical before Branch breakfast. empaglifloz 2023-0 Yes [id number] 10mg Take 1 [facility] in 2-07 tablet by ity of (JARDIANCE) 00:00: mouth [place] 10 mg 00 daily Medical before Branch breakfast. empaglifloz 2023-0 Yes [id number] 10mg Take 1 [facility] in 2-07 tablet by ity of (JARDIANCE) 00:00: mouth [place] 10 mg 00 daily Medical before Branch breakfast. empaglifloz 2023-0 Yes [id number] 10mg Take 1 [facility] in 2-07 tablet by ity of (JARDIANCE) 00:00: mouth [place] 10 mg 00 daily Medical before Branch breakfast. empaglifloz 2023-0 Yes [id number] 10mg Take 1 [facility] in 2-07 tablet by ity of (JARDIANCE) 00:00: mouth [place] 10 mg 00 daily Medical before Branch breakfast. empaglifloz 2023-0 Yes [id number] 10mg Take 1 [facility] in 2-07 tablet by ity of (JARDIANCE) 00:00: mouth [place] 10 mg 00 daily Medical before Branch breakfast. empaglifloz 2023-0 Yes [id number] 10mg Take 1 [facility] in 2-07 tablet by ity of (JARDIANCE) 00:00: mouth [place] 10 mg 00 daily Medical before Branch breakfast. empaglifloz 2023-0 Yes [id number] 10mg Take 1 [facility] in 2-07 tablet by ity of (JARDIANCE) 00:00: mouth [place] 10 mg 00 daily Medical before Branch breakfast. empaglifloz 2023-0 Yes [id number] 10mg Take 1 [facility] in 2-07 tablet by ity of (JARDIANCE) 00:00: mouth [place] 10 mg 00 daily Medical before Branch breakfast. empaglifloz 2023-0 Yes [id number] 10mg Take 1 [facility] in 2-07 tablet by ity of (JARDIANCE) 00:00: mouth [place] 10 mg 00 daily Medical before Branch breakfast. empaglifloz 2023-0 Yes [id number] 10mg Take 1 [facility] in 2-07 tablet by ity of (JARDIANCE) 00:00: mouth [place] 10 mg 00 daily Medical before Branch breakfast. empaglifloz 2023-0 Yes [id number] 10mg Take 1 [facility] in 2-07 tablet by ity of (JARDIANCE) 00:00: mouth [place] 10 mg 00 daily Medical before Branch breakfast. empaglifloz 2023-0 Yes [id number] 10mg Take 1 [facility] in 2-07 tablet by ity of (JARDIANCE) 00:00: mouth [place] 10 mg 00 daily Medical before Branch breakfast. empaglifloz 2023-0 Yes [id number] 10mg Take 1 [facility] in 2-07 tablet by ity of (JARDIANCE) 00:00: mouth [place] 10 mg 00 daily Medical before Branch breakfast. empaglifloz 2023-0 Yes [id number] 10mg Take 1 [facility] in 2-07 tablet by ity of (JARDIANCE) 00:00: mouth [place] 10 mg 00 daily Medical before Branch breakfast. empaglifloz 2023-0 Yes [id number] 10mg Take 1 [facility] in 2-07 tablet by ity of (JARDIANCE) 00:00: mouth [place] 10 mg 00 daily Medical before Branch breakfast. empaglifloz 2023-0 Yes [id number] 10mg Take 1 [facility] in 2-07 tablet by ity of (JARDIANCE) 00:00: mouth [place] 10 mg 00 daily Medical before Branch breakfast. empaglifloz 2023-0 Yes [id number] 10mg Take 1 [facility] in 2-07 tablet by ity of (JARDIANCE) 00:00: mouth [place] 10 mg 00 daily Medical before Branch breakfast. empaglifloz 2023-0 Yes [id number] 10mg Take 1 [facility] in 2-07 tablet by ity of (JARDIANCE) 00:00: mouth [place] 10 mg 00 daily Medical before Branch breakfast. empaglifloz 2023-0 Yes [id number] 10mg Take 1 [facility] in 2-07 tablet by ity of (JARDIANCE) 00:00: mouth [place] 10 mg 00 daily Medical before Branch breakfast. empaglifloz 2023-0 Yes [id number] 10mg Take 1 [facility] in 2-07 tablet by ity of (JARDIANCE) 00:00: mouth [place] 10 mg 00 daily Medical before Branch breakfast. empaglifloz 2023-0 Yes [id number] 10mg Take 1 [facility] in 2-07 tablet by ity of (JARDIANCE) 00:00: mouth [place] 10 mg 00 daily Medical before Branch breakfast. empaglifloz 2023-0 Yes [id number] 10mg Take 1 [facility] in 2-07 tablet by ity of (JARDIANCE) 00:00: mouth [place] 10 mg 00 daily Medical before Branch breakfast. empaglifloz 2023-0 Yes [id number] 10mg Take 1 [facility] in 2-07 tablet by ity of (JARDIANCE) 00:00: mouth [place] 10 mg 00 daily Medical before Branch breakfast. clonazePAM 2023-0 Yes [id number] Take 1 [facility] n[facility] 1 mg tablet 1-31 pill PO in it y of 00:00: the AM, 1 [place] 00 PO in the Medical afternoon, Branch 1 pill PO in the evening. May take additional 1/2 pill as needed for acute anxiety. clonazePAM 2023-0 Yes [id number] Take 1 [facility] nivers 1 mg tablet 1-31 pill PO in it y of 00:00: the AM, 1 [place] 00 PO in the Medical afternoon, Branch 1 pill PO in the evening. May take additional 1/2 pill as needed for acute anxiety. clonazePAM 2023-0 Yes [id number] Take 1 [facility] nivers 1 mg tablet 1-31 pill PO in it y of 00:00: the AM, 1 [place] 00 PO in the Medical afternoon, Branch 1 pill PO in the evening. May take additional 1/2 pill as needed for acute anxiety. clonazePAM 2023-0 Yes [id number] Take 1 [facility] nivers 1 mg tablet 1-31 pill PO in it y of 00:00: the AM, 1 [place] 00 PO in the Medical afternoon, Branch 1 pill PO in the evening. May take additional 1/2 pill as needed for acute anxiety. clonazePAM 3-0 Yes [id number] Take 1 U nivers 1 mg tablet 1-31 pill PO in it y of 00:00: the AM, 1 [place] 00 PO in the Medical afternoon, Branch 1 pill PO in the evening. May take additional 1/2 pill as needed for acute anxiety. clonazePAM 3-0 Yes [id number] Take 1 U nivers 1 mg tablet 1-31 pill PO in it y of 00:00: the AM, 1 [place] 00 PO in the Medical afternoon, Branch 1 pill PO in the evening. May take additional 1/2 pill as needed for acute anxiety. clonazePAM 2022-0 Yes [id number] Take 1 U nivers 1 mg tablet 1-31 pill PO in it y of 00:00: the AM, 1 [place] 00 PO in the Medical afternoon, Branch 1 pill PO in the evening. May take additional 1/2 pill as needed for acute anxiety. clonazePAM 2022-0 Yes [id number] Take 1 U nivers 1 mg tablet 1-31 pill PO in it y of 00:00: the AM, 1 [place] 00 PO in the Medical afternoon, Branch 1 pill PO in the evening. May take additional 1/2 pill as needed for acute anxiety. clonazePAM 2022-0 Yes [id number] Take 1 U nivers 1 mg tablet 1-31 pill PO in it y of 00:00: the AM, 1 [place] 00 PO in the Medical afternoon, Branch 1 pill PO in the evening. May take additional 1/2 pill as needed for acute anxiety. clonazePAM 2022-0 Yes [id number] Take 1 U nivers 1 mg tablet 1-31 pill PO in it y of 00:00: the AM, 1 [place] 00 PO in the Medical afternoon, Branch 1 pill PO in the evening. May take additional 1/2 pill as needed for acute anxiety. clonazePAM 3-0 Yes [id number] Take 1 U nivers 1 mg tablet 1-31 pill PO in it y of 00:00: the AM, 1 [place] 00 PO in the Medical afternoon, Branch 1 pill PO in the evening. May take additional 1/2 pill as needed for acute anxiety. clonazePAM 2022-0 Yes [id number] Take 1 U nivers 1 mg tablet 1-31 pill PO in it y of 00:00: the AM, 1 [place] 00 PO in the Medical afternoon, Branch 1 pill PO in the evening. May take additional 1/2 pill as needed for acute anxiety. clonazePAM 2023-0 2022- No [id number] Take 1 [facility] 1 mg tablet --28 pill PO in i ty of 00:00: 00:00 the AM, 1 [place] 00 :00 PO in the Medical afternoon, Branch 1 pill PO in the evening. May take additional 1/2 pill as needed for acute anxiety. clonazePAM 2023-0 2022- No [id number] Take 1 [facility] 1 mg tablet 07-23-28 pill PO in i ty of 00:00: 00:00 the AM, 1 [place] 00 :00 PO in the Medical afternoon, Branch 1 pill PO in the evening. May take additional 1/2 pill as needed for acute anxiety. clonazePAM 2022-0 2022- No [id number] Take 1 [facility] 1 mg tablet 07-23-28 pill PO in i ty of 00:00: 00:00 the AM, 1 [place] 00 :00 PO in the Medical afternoon, Branch 1 pill PO in the evening. May take additional 1/2 pill as needed for acute anxiety. clonazePAM 3-0 2022- No [id number] Take 1 [facility] 1 mg tablet 07-23-28 pill PO in i ty of 00:00: 00:00 the AM, 1 [place] 00 :00 PO in the Medical afternoon, Branch 1 pill PO in the evening. May take additional 1/2 pill as needed for acute anxiety. clonazePAM 2022-0 2022- No [id number] Take 1 [facility] 1 mg tablet 07-23-28 pill PO in i ty of 00:00: 00:00 the AM, 1 [place] 00 :00 PO in the Medical afternoon, Branch 1 pill PO in the evening. May take additional 1/2 pill as needed for acute anxiety. clonazePAM 2023-0 2022- No [id number] Take 1 [facility] 1 mg tablet 07-23-28 pill PO in i ty of 00:00: 00:00 the AM, 1 [place] 00 :00 PO in the Medical afternoon, Branch 1 pill PO in the evening. May take additional 1/2 pill as needed for acute anxiety. clonazePAM 2023-0 2022- No [id number] Take 1 [facility] 1 mg tablet 1-31 02-28 pill PO in i ty of 00:00: 00:00 the AM, 1 [place] 00 :00 PO in the Medical afternoon, Branch 1 pill PO in the evening. May take additional 1/2 pill as needed for acute anxiety. clonazePAM 2022-0 2022- No [id number] Take 1 [facility] 1 mg tablet 07-23 pill PO in i ty of 00:00: 00:00 the AM, 1 [place] 00 :00 PO in the Medical afternoon, Branch 1 pill PO in the evening. May take additional 1/2 pill as needed for acute anxiety. clonazePAM 2022-0 2022- No [id number] Take 1 [facility] 1 mg tablet 07-23 pill PO in i ty of 00:00: 00:00 the AM, 1 [place] 00 :00 PO in the Medical afternoon, Branch 1 pill PO in the evening. May take additional 1/2 pill as needed for acute anxiety. clonazePAM 2022-0 2022- No [id number] Take 1 [facility] 1 mg tablet 07-23 pill PO in i ty of 00:00: 00:00 the AM, 1 [place] 00 :00 PO in the Medical afternoon, Branch 1 pill PO in the evening. May take additional 1/2 pill as needed for acute anxiety. clonazePAM 2022-0 2022- No [id number] Take 1 [facility] 1 mg tablet 07-23 pill PO in i ty of 00:00: 00:00 the AM, 1 [place] 00 :00 PO in the Medical afternoon, Branch 1 pill PO in the evening. May take additional 1/2 pill as needed for acute anxiety. atorvastati 2022-0 Yes 40mg 40 mg, Univ ers n (LIPITOR) 1-18 Oral, QHS, it y of tablet 40 03:00: First dose [place] mg 00 on [facility] 07/09/22 at Branch 2100, Until Discontinu ed, Routine rivaroxaban 2022-0 Yes 1291 20mg 20 mg, Univ ers (XARELTO) 1-17 Oral, ity of tablet 20 15:00: DAILY, [place] mg 00 First dose Medical on [facility] 07/09/22 at 0900, Until Discontinu ed, Routine pyridoxine 2022-0 Yes 50mg 50 mg, Unive rs (vitamin 1-17 Oral, ity of B6) 15:00: DAILY, [place] (VITAMIN 00 First dose Medic al B6) tablet on [facility] 50 mg 07/09/22 at 0900, Until Discontinu ed polyethylen 2022-0 Yes 17g 17 g, Unive rs e glycol 17 Oral, ity of 3350 powder 15:00: DAILY, [place] 17 g 00 First dose Medical on [place] 07/09/22 at 0900, Until Discontinu ed metOLazone 2022-0 Yes 2.5mg 2.5 mg, Uni vers (ZAROXOLYN) 07-09 Oral, ity of tablet 2.5 15:00: DAILY, [place] mg 00 First dose Medical on Fri [place] 07/09/22 at 0900, Until Discontinu ed, Routine isosorbide 0 Yes 30mg 30 mg, Unive rs mononitrate 07-09 Oral, ity of (IMDUR) 24 15:00: DAILY, [place] hr tablet 00 First dose Medi marium [address] [facility] 07/09/22 at 0900, Until Discontinu ed, Routine empaglifloz 0 Yes 10mg 10 mg, Univ ers in 07-09 Oral, ity of (JARDIANCE) 15:00: DAILY, [place] tablet 10 00 First dose Medi marium mg on Fri [place] 07/09/22 at 0900, Until Discontinu ed, Routine
Is this a home medication ? Yes
Has this patient brought their own medication ? No
Eder maría will dispense the medication from inpatient. Pharmacy will dispense the medication from inpatient.
Inpati ent ordering of this medication is not allowed unless the patient is maintained on this medication at home, and home supply is unavailabl e. Does this order meet the criteria for inpatient ordering? Yes diltiazem 2022-0 Yes 120mg 120 mg, Univ ers XR 17 Oral, ity of (DILT-XR) 15:00: DAILY, [place] capsule 120 00 First dose Me dical mg on Fri [place] 07/09/22 at 0900, Until Discontinu ed, Routine cholecalcif 2022-0 Yes 2000U 2,000 Univ ers [place] 1-17 Units, ity of (vitamin 15:00: Oral, [place] D3) tablet 00 DAILY, Medical 2,000 Units First dose Br anch on 07/09/22 at 0900, Until Discontinu ed buPROPion 2022-0 Yes 150mg 150 mg, Univ ers XL 17 Oral, ity of (WELLBUTRIN 15:00: DAILY, [place] XL) tablet 00 First dose Med ical 150 mg on [facility] 07/09/22 at 0900, Until Discontinu ed, Routine ARIPiprazol 2022-0 Yes 15mg 15 mg, Univ ers e (ABILIFY) 07-09 Oral, ity of tablet 15 15:00: DAILY, [place] mg 00 First dose Medical on [facility] 07/09/22 at 0900, Until Discontinu ed, Routine allopurinoL 2022-0 Yes 300mg 300 mg, Un [place] (ZYLOPRIM) 07-09 Oral, ity of tablet 300 15:00: DAILY, [place] mg 00 First dose Medical on [facility] 07/09/22 at 0900, Until Discontinu ed, Routine aspirin EC 2022-0 Yes 81mg 81 mg, Unive rs tablet 81 07-09 Oral, ity of mg 15:00: DAILY, [place] 00 First dose Medical on [facility] 07/09/22 at 0900, Until Discontinu ed, Routine ranolazine 2022-0 Yes 1000mg 1,000 mg, Univers (RANEXA) 12 07-09 Oral, BID, it y of hr tablet 14:00: First dose [place] 1,000 mg 00 on [facility] 07/09/22 at Branch 0800, Until Discontinu ed pantoprazol 2022-0 Yes 40mg 40 mg, Univ ers e 07-09 Oral, BID, ity of (PROTONIX) 14:00: First dose [place] EC tablet 00 on [facility] 40 mg 07/09/22 at Branch 0800, Until Discontinu ed, Routine methocarbam 2022-0 Yes 750mg 750 mg, Un [place] oL -17 Oral, BID, ity of (ROBAXIN) 14:00: First dose [place] tablet 750 00 on [facility] mg 07/09/22 at Branch 0800, Until Discontinu ed, Routine bumetanide 2022-0 Yes 2mg 2 mg, Slow U nivers (BUMEX) -17 IV Push, ity of injection 2 14:00: Q12H, [place] mg 00 First dose Medical on [facility] 07/09/22 at 0800, Until Discontinu ed, Routine aMILoride 2022-0 Yes 10mg 10 mg, Univer s (MIDAMOR) 1-17 Oral, BID, ity of tablet 10 14:00: First dose [place] mg 00 on [facility] 07/09/22 at Branch 0800, Until Discontinu ed, Routine pyridoxine 2022-0 Yes Take by Univ ers HCl, 1-17 mouth ity of vitamin B6, 11:23: daily. [place] (VITAMIN 10 Medical B-6 ORAL) Branch methocarbam 2022-0 Yes 750mg Take 750 U nivers ol 750 mg 1-17 mg by ity of tablet 11:23: mouth 2 [place] [address] (two) Medical times [place] daily. buprenorphi 2022-[address] 8 mg Univers ne-naloxone 1-17 under the ity of 8-2 mg 11:23: tongue [place] sublingual 10 every 12 Medic al film (twelve) Branch hours as needed for Pain (scale 7-10). Cholecalcif 0 Yes 1{tbl} Take 1 [place], 1-17 tablet by ity of Vitamin D3, 11:23: mouth [place] 50 mcg 10 daily. Medical (2,000 Branch unit) tablet ZINC ORAL 0 Yes [facility] mouth ity of 11:23: daily. [address] COQ10, 2022-0 Yes Take by [facility] UBIQUINOL, -17 mouth. ity of ORAL 11:23: [address] levocarniti 0 Yes Take by Uni vers ne -17 mouth. ity of (L-CARNITIN 11:23: [place] E ORAL) 10 Medical Branch pyridoxine 2022-0 Yes Take by Univ ers HCl, 1-17 mouth ity of vitamin B6, 11:23: daily. [place] (VITAMIN 10 Medical B-6 ORAL) Branch methocarbam 2022-0 Yes 750mg Take 750 U nivers ol 750 mg 1-17 mg by ity of tablet 11:23: mouth 2 [place] 10 (two) Medical times Branch daily. buprenorphi 2022-[address] 8 mg Univers ne-naloxone 1-17 under the ity of 8-2 mg 11:23: tongue [place] sublingual 10 every 12 Medic al film (twelve) Branch hours as needed for Pain (scale 7-10). Cholecalcif 2022-0 Yes 1{tbl} Take 1 [place], 1-17 tablet by ity of Vitamin D3, 11:23: mouth [place] 50 mcg 10 daily. Medical (2,000 Branch unit) tablet ZINC ORAL 2022-0 Yes Take by Unive rs 1-17 mouth ity of 11:23: daily. [place] [address] Medical Branch COQ10, 0 Yes Take by Univers UBIQUINOL, -17 mouth. ity of ORAL 11:23: [place] [address] Medical Branch levocarniti 0 Yes Take by Uni vers ne -17 mouth. ity of (L-CARNITIN 11:23: [place] E ORAL) 10 Medical Branch pyridoxine 0 Yes Take by Univ ers HCl, -17 mouth ity of vitamin B6, 11:23: daily. [facility] s (VITAMIN 10 Medical B-6 ORAL) Branch methocarbam 0 Yes 750mg Take 750 U nivers ol 750 mg 1-17 mg by ity of tablet 11:23: mouth 2 [place] 10 (two) Medical times Branch daily. buprenorphi [address] 8 mg Univers ne-naloxone 17 under the ity of 8-2 mg 11:23: tongue [place] sublingual 10 every 12 Medic al film (twelve) Branch hours as needed for Pain (scale 7-10). Cholecalcif 0 Yes 1{tbl} Take 1 [place], 1-17 tablet by ity of Vitamin D3, 11:23: mouth [place] 50 mcg 10 daily. Medical (2,000 Branch unit) tablet ZINC ORAL 2022-0 Yes Take by Unive rs 1-17 mouth ity of 11:23: daily. [place] [address] Medical Branch COQ10, 0 Yes Take by Univers UBIQUINOL, 1-17 mouth. ity of ORAL 11:23: [place] [address] Medical Branch levocarniti 0 Yes Take by Uni vers ne 1-17 mouth. ity of (L-CARNITIN 11:23: [place] E ORAL) 10 Medical Branch pyridoxine 0 Yes Take by Univ ers HCl, -17 mouth ity of vitamin B6, 11:23: daily. [place] (VITAMIN 10 Medical B-6 ORAL) Branch methocarbam 0 Yes 750mg Take 750 U nivers ol 750 mg 1-17 mg by ity of tablet 11:23: mouth 2 [place] 10 (two) Medical times Branch daily. buprenorphi 2022-[address] 8 mg Univers ne-naloxone 1-17 under the ity of 8-2 mg 11:23: tongue [place] sublingual 10 every 12 Medic al film (twelve) Branch hours as needed for Pain (scale 7-10). Cholecalcif 2022-0 Yes 1{tbl} Take 1 [place], 1-17 tablet by ity of Vitamin D3, 11:23: mouth [place] 50 mcg 10 daily. Medical (2,000 Branch unit) tablet ZINC ORAL 0 Yes Take by Unive rs 1-17 mouth ity of 11:23: daily. [address] Branch COQ10, Yes Take by [facility] UBIQUINOL, -17 mouth. ity of ORAL 11:23: [address] Branch levocarniti 0 Yes Take by Uni vers ne -17 mouth. ity of (L-CARNITIN 11:23: [place] E ORAL) Medical Branch pyridoxine 0 Yes Take by Univ ers HCl, -17 mouth ity of vitamin B6, 11:23: daily. [place] (VITAMIN 10 Medical B-6 ORAL) Branch methocarbam 0 Yes 750mg Take 750 U nivers ol 750 mg 1-17 mg by ity of tablet 11:23: mouth 2 [place] 10 (two) Medical times Branch daily. buprenorphi 2022-[address] 8 mg Univers ne-naloxone 1-17 under the ity of 8-2 mg 11:23: tongue [place] sublingual 10 every 12 Medic al film (twelve) Branch hours as needed for Pain (scale 7-10). Cholecalcif 2022-0 Yes 1{tbl} Take 1 [place], 1-17 tablet by ity of Vitamin D3, 11:23: mouth [place] 50 mcg 10 daily. Medical (2,000 Branch unit) tablet ZINC ORAL 2022-0 Yes Take by Unive rs 1-17 mouth ity of 11:23: daily. [address] Branch COQ10, Yes Take by Univers UBIQUINOL, 1-17 mouth. ity of ORAL 11:23: [address] Branch levocarniti 0 Yes Take by Uni vers ne 1-17 mouth. ity of (L-CARNITIN 11:23: [place] E ORAL) 10 [facility] Branch pyridoxine 0 Yes Take by Univ ers HCl, 1-17 mouth ity of vitamin B6, 11:23: daily. [place] (VITAMIN 10 Medical B-6 ORAL) Branch methocarbam 0 Yes 750mg Take 750 U nivers ol 750 mg 1-17 mg by ity of tablet 11:23: mouth 2 [place] [address] (two) Medical times Branch daily. buprenorphi [address] 8 mg Univers ne-naloxone 1-17 under the ity of 8-2 mg 11:23: tongue [place] sublingual 10 every 12 Medic al film (twelve) Branch hours as needed for Pain (scale 7-10). Cholecalcif 0 Yes 1{tbl} Take 1 [place], 1-17 tablet by ity of Vitamin D3, 11:23: mouth [place] 50 mcg 10 daily. Medical (2,000 Branch unit) tablet ZINC ORAL 0 Yes Take by Unive rs 1-17 mouth ity of 11:23: daily. [address] Branch COQ10, 0 Yes Take by Univers UBIQUINOL, 1-17 mouth. ity of ORAL 11:23: [address] Branch levocarniti Yes Take by Uni vers ne -17 mouth. ity of (L-CARNITIN 11:23: [place] E ORAL) [address] [place] [address] Branch pyridoxine 0 Yes Take by Univ ers HCl, -17 mouth ity of vitamin B6, 11:23: daily. [place] (VITAMIN 10 Medical B-6 ORAL) Branch methocarbam 0 Yes 750mg Take 750 U nivers ol 750 mg 1-17 mg by ity of tablet 11:23: mouth 2 [place] 10 (two) Medical times Branch daily. buprenorphi [address] 8 mg Univers ne-naloxone 1-17 under the ity of 8-2 mg 11:23: tongue [place] sublingual 10 every 12 Medic al film (twelve) Branch hours as needed for Pain (scale 7-10). Cholecalcif 2022-0 Yes 1{tbl} Take 1 [place], 1-17 tablet by ity of Vitamin D3, 11:23: mouth [place] 50 mcg 10 daily. Medical (2,000 Branch unit) tablet ZINC ORAL 2022-0 Yes Take by Univ ers 1-17 mouth ity of 11:23: daily. [place] [address] Medical Branch COQ10, 0 Yes Take by Univers UBIQUINOL, 1-17 mouth. ity of ORAL 11:23: [place] [address] Medical Branch levocarniti 0 Yes Take by Uni vers ne -17 mouth. ity of (L-CARNITIN 11:23: [place] E ORAL) 10 Medical Branch pyridoxine 0 Yes Take by Univ ers HCl, -17 mouth ity of vitamin B6, 11:23: daily. [place] (VITAMIN 10 Medical B-6 ORAL) Branch methocarbam 0 Yes 750mg Take 750 U nivers ol 750 mg 1-17 mg by ity of tablet 11:23: mouth 2 [place] 10 (two) Medical times Branch daily. buprenorphi [address] 8 mg Univers ne-naloxone 1-17 under the ity of 8-2 mg 11:23: tongue [place] sublingual 10 every 12 Medic al film (twelve) Branch hours as needed for Pain (scale 7-10). Cholecalcif 0 Yes 1{tbl} Take 1 [place], 1-17 tablet by ity of Vitamin D3, 11:23: mouth [place] 50 mcg 10 daily. Medical (2,000 Branch unit) tablet ZINC ORAL 2022-0 Yes Take by Unive rs 1-17 mouth ity of 11:23: daily. [place] [address] Medical Branch COQ10, 0 Yes Take by Univers UBIQUINOL, 1-17 mouth. ity of ORAL 11:23: [place] [address] Medical Branch levocarniti 0 Yes Take by Uni vers ne 1-17 mouth. ity of (L-CARNITIN 11:23: [place] E ORAL) 10 Medical Branch pyridoxine 0 Yes Take by Univ ers HCl, 1-17 mouth ity of vitamin B6, 11:23: daily. [place] (VITAMIN 10 Medical B-6 ORAL) Branch methocarbam 0 Yes 750mg Take 750 U nivers ol 750 mg 1-17 mg by ity of tablet 11:23: mouth 2 [place] 10 (two) Medical times Branch daily. buprenorphi 2022-[address] 8 mg Univers ne-naloxone 1-17 under the ity of 8-2 mg 11:23: tongue [place] sublingual 10 every 12 Medic al film (twelve) Branch hours as needed for Pain (scale 7-10). Cholecalcif 2022-0 Yes 1{tbl} Take 1 [place], 1-17 tablet by ity of Vitamin D3, 11:23: mouth [place] 50 mcg 10 daily. Medical (2,000 Branch unit) tablet ZINC ORAL 0 Yes Take by Unive rs 1-17 mouth ity of 11:23: daily. [address] Branch COQ10, 0 Yes Take by Univers UBIQUINOL, 1-17 mouth. ity of ORAL 11:23: [address] Branch levocarniti 0 Yes Take by Uni vers ne -17 mouth. ity of (L-CARNITIN 11:23: [place] E ORAL) 10 Medical Branch pyridoxine 0 Yes Take by Univ ers HCl, -17 mouth ity of vitamin B6, 11:23: daily. [place] (VITAMIN 10 Medical B-6 ORAL) Branch methocarbam 0 Yes 750mg Take 750 U nivers ol 750 mg 1-17 mg by ity of tablet 11:23: mouth 2 [place] 10 (two) Medical times Branch daily. buprenorphi 2022-[address] 8 mg [facility] ne-naloxone 1-17 under the ity of 8-2 mg 11:23: tongue [place] sublingual 10 every 12 Medic al film (twelve) Branch hours as needed for Pain (scale 7-10). Cholecalcif 2022-0 Yes 1{tbl} Take 1 [place], 1-17 tablet by ity of Vitamin D3, 11:23: mouth [place] 50 mcg 10 daily. Medical (2,000 Branch unit) tablet ZINC ORAL 0 Yes Take by Unive rs 1-17 mouth ity of 11:23: daily. [address] Branch COQ10, 0 Yes Take by [facility] UBIQUINOL, 1-17 mouth. ity of ORAL 11:23: [place] [address] Medical Branch levocarniti 0 Yes Take by Uni vers ne 1-17 mouth. ity of (L-CARNITIN 11:23: [place] E ORAL) 10 Medical Branch pyridoxine 0 Yes Take by Univ ers HCl, -17 mouth ity of vitamin B6, 11:23: [place]. [place] (VIT[place]IN 10 Medical B-6 ORAL) Branch methocarbam 0 Yes 750mg Take 750 U nivers ol 750 mg 1-17 mg by ity of tablet 11:23: mouth 2 [place] 10 (two) Medical times Branch daily. b[place] 2022-[address] 8 mg [facility] ne-naloxone 1-17 under the ity of 8-2 mg 11:23: tongue [place] sublingual 10 every 12 Medic al film (twelve) Branch hours as needed for Pain (scale 7-10). Cholecalcif 0 Yes 1{tbl} Take 1 [place], 1-17 tablet by ity of Vitamin D3, 11:23: mouth [place] 50 mcg 10 daily. Medical (2,000 Branch unit) tablet ZINC ORAL 0 Yes Take by Unive rs 1-17 mouth ity of 11:23: daily. [address] Branch COQ10, 0 Yes Take by [facility] UBIQUINOL, -17 mouth. ity of ORAL 11:23: [address] Branch levocarniti 0 Yes Take by Uni vers ne -17 mouth. ity of (L-CARNITIN 11:23: [place] E ORAL) [address] [place] [address] Branch pyridoxine 0 Yes Take by Univ ers HCl, -17 mouth ity of vitamin B6, 11:23: [place]. [place] (VITAMIN 10 Medical B-6 ORAL) Branch methocarbam 0 Yes 750mg Take 750 U nivers ol 750 mg 1-17 mg by ity of tablet 11:23: mouth 2 [place] 10 (two) Medical times Branch daily. b[place] 2022-[address] 8 mg [facility] ne-naloxone 1-17 under the ity of 8-2 mg 11:23: tongue [place] sublingual 10 every 12 Medic al film (twelve) Branch hours as needed for Pain (scale 7-10). Cholecalcif 2023-0 Yes 1{tbl} Take 1 [place], 1-17 tablet by ity of Vitamin D3, 11:23: mouth [place] 50 mcg 10 daily. Medical (2,000 Branch unit) tablet ZINC ORAL 0 Yes Take by Unive rs 1-17 mouth ity of 11:23: daily. [address] Branch COQ10, Yes Take by [facility] UBIQUINOL, -17 mouth. ity of ORAL 11:23: [address] Branch levocarniti Yes Take by Uni vers ne -17 mouth. ity of (L-CARNITIN 11:23: [place] E ORAL) 10 [facility] Branch pyridoxine Yes Take by Univ ers HCl, 17 mouth ity of vitamin B6, 11:23: daily. [place] (VITAMIN 10 Medical B-6 ORAL) Branch methocarbam Yes 750mg Take 750 U nivers ol 750 mg 1-17 mg by ity of tablet 11:23: mouth 2 [place] 10 (two) Medical times Branch daily. [place] Yes 8mg Place 8 mg [facility] ne-naloxone 17 under the ity of 8-2 mg 11:23: tongue [place] sublingual 10 every 12 Medic al film (twelve) Branch hours as needed for Pain (scale 7-10). Cholecalcif Yes 1{tbl} Take 1 [place], 1-17 tablet by ity of Vitamin D3, 11:23: mouth [place] 50 mcg 10 daily. Medical (2,000 Branch unit) tablet ZINC ORAL Yes Take by Unive rs -17 mouth ity of 11:23: daily. [address] Branch COQ10, Yes Take by [facility] UBIQUINOL, -17 mouth. ity of ORAL 11:23: [address] Branch levocarniti Yes Take by Uni vers ne -17 mouth. ity of (L-CARNITIN 11:23: [place] E ORAL) 10 [facility] Branch pyridoxine 0 Yes Take by Univ ers HCl, -17 mouth ity of vitamin B6, 11:23: daily. [place] (VITAMIN 10 Medical B-6 ORAL) Branch methocarbam Yes 750mg Take 750 U nivers ol 750 mg 1-17 mg by ity of tablet 11:23: mouth 2 [place] [address] (two) Medical times Branch daily. b[place] 2022-[address] 8 mg [facility] ne-naloxone 1-17 under the ity of 8-2 mg 11:23: tongue [place] sublingual 10 every 12 Medic al film (twelve) Branch hours as needed for Pain (scale 7-10). Cholecalcif 2022-0 Yes 1{tbl} Take 1 [place], 1-17 tablet by ity of Vitamin D3, 11:23: mouth [place] 50 mcg 10 daily. Medical (2,000 Branch unit) tablet ZINC ORAL 2022-0 Yes Take by Unive rs 1-17 mouth ity of 11:23: daily. [address] Branch COQ10, 0 Yes Take by [facility] UBIQUINOL, -17 mouth. ity of ORAL 11:23: [address] Branch levocarniti 0 Yes Take by Uni vers ne -17 mouth. ity of (L-CARNITIN 11:23: [place] E ORAL) 10 Medical Branch pyridoxine 0 Yes Take by Univ ers HCl, -17 mouth ity of vitamin B6, 11:23: daily. [place] [facility] (VITAMIN 10 Medical B-6 ORAL) Branch methocarbam 0 Yes 750mg Take 750 U nivers ol 750 mg 1-17 mg by ity of tablet 11:23: mouth 2 [place] [address] (two) Medical times Branch daily. b[place] 2022-[address] 8 mg [facility] ne-naloxone 1-17 under the ity of 8-2 mg 11:23: tongue [place] sublingual 10 every 12 Medic al film (twelve) Branch hours as needed for Pain (scale 7-10). Cholecalcif 2022-0 Yes 1{tbl} Take 1 [place], 1-17 tablet by ity of Vitamin D3, 11:23: mouth [place] 50 mcg 10 daily. Medical (2,000 Branch unit) tablet ZINC ORAL 2022-0 Yes Take by Unive rs 1-17 mouth ity of 11:23: daily. [place] [address] Medical Branch COQ10, 0 Yes Take by Univers UBIQUINOL, 1-17 mouth. ity of ORAL 11:23: [address] Branch levocarniti 2023-0 Yes Take by Uni vers ne -17 mouth. ity of (L-CARNITIN 11:23: [place] E ORAL) 10 Medical Branch pyridoxine Yes Take by Univ ers HCl, 1-17 mouth ity of vitamin B6, 11:23: daily. [place] (VITAMIN 10 Medical B-6 ORAL) Branch methocarbam Yes 750mg Take 750 U nivers ol 750 mg 1-17 mg by ity of tablet 11:23: mouth 2 [place] 10 (two) Medical times Branch daily. [place] [address] 8 mg [facility] ne-naloxone 1-17 under the ity of 8-2 mg 11:23: tongue [place] sublingual 10 every 12 Medic al film (twelve) Branch hours as needed for Pain (scale 7-10). Cholecalcif Yes 1{tbl} Take 1 [place], 1-17 tablet by ity of Vitamin D3, 11:23: mouth [place] 50 mcg 10 daily. Medical (2,000 Branch unit) tablet ZINC ORAL Yes Take by Unive rs -17 mouth ity of 11:23: daily. [address] Branch COQ10, Yes Take by [facility] UBIQUINOL, -17 mouth. ity of ORAL 11:23: [address] Branch levocarniti Yes Take by Uni vers ne -17 mouth. ity of (L-CARNITIN 11:23: [place] E ORAL) 10 Medical Branch pyridoxine Yes Take by [facility] ers HCl, -17 mouth ity of vitamin B6, 11:23: daily. [place] (VITAMIN 10 Medical B-6 ORAL) Branch methocarbam Yes 750mg Take 750 U nivers ol 750 mg 1-17 mg by ity of tablet 11:23: mouth 2 [place] 10 (two) Medical times Branch daily. b[place] 2022-[address] 8 mg [facility] ne-naloxone 1-17 under the ity of 8-2 mg 11:23: tongue [place] sublingual 10 every 12 Medic al film (twelve) Branch hours as needed for Pain (scale 7-10). Cholecalcif 2022-0 Yes 1{tbl} Take 1 [place], 1-17 tablet by ity of Vitamin D3, 11:23: mouth [place] 50 mcg 10 daily. Medical (2,000 Branch unit) tablet ZINC ORAL 2022-0 Yes Take by Unive rs 1-17 mouth ity of 11:23: daily. [address] Branch COQ10, 0 Yes Take by Univers UBIQUINOL, -17 mouth. ity of ORAL 11:23: [address] Branch levocarniti 0 Yes Take by Uni vers ne -17 mouth. ity of (L-CARNITIN 11:23: [place] E ORAL) 10 [facility] Branch pyridoxine 0 Yes Take by Univ ers HCl, -17 mouth ity of vitamin B6, 11:23: daily. [place] (VITAMIN 10 Medical B-6 ORAL) Branch methocarbam 2022-0 Yes 750mg Take 750 U nivers ol 750 mg 1-17 mg by ity of tablet 11:23: mouth 2 [place] 10 (two) Medical times Branch daily. [place] [address] 8 mg [facility] ne-naloxone 17 under the ity of 8-2 mg 11:23: tongue [place] sublingual 10 every 12 Medic al film (twelve) Branch hours as needed for Pain (scale 7-10). Cholecalcif 0 Yes 1{tbl} Take 1 [place], 1-17 tablet by ity of Vitamin D3, 11:23: mouth [place] 50 mcg 10 daily. Medical (2,000 Branch unit) tablet ZINC ORAL 2022-0 Yes Take by Unive rs 1-17 mouth ity of 11:23: daily. [address] Branch COQ10, 0 Yes Take by [facility] UBIQUINOL, -17 mouth. ity of ORAL 11:23: [address] Branch levocarniti 0 Yes Take by Uni vers ne 1-17 mouth. ity of (L-CARNITIN 11:23: [place] E ORAL) 10 [facility] Branch pyridoxine 0 Yes Take by Univ ers HCl, -17 mouth ity of vitamin B6, 11:23: daily. [place] (VITAMIN 10 Medical B-6 ORAL) Branch methocarbam 2022-0 Yes 750mg Take 750 U nivers ol 750 mg 1-17 mg by ity of tablet 11:23: mouth 2 [place] 10 (two) Medical times Branch daily. b[place] 2022-[address] 8 mg [facility] ne-naloxone 1-17 under the ity of 8-2 mg 11:23: tongue [place] sublingual 10 every 12 Medic al film (twelve) Branch hours as needed for Pain (scale 7-10). Cholecalcif 2022-0 Yes 1{tbl} Take 1 [place], 1-17 tablet by ity of Vitamin D3, 11:23: mouth [place] 50 mcg 10 daily. Medical (2,000 Branch unit) tablet ZINC ORAL 0 Yes Take by Unive rs 1-17 mouth ity of 11:23: daily. [place] [address] Medical Branch COQ10, Yes Take by Univers UBIQUINOL, -17 mouth. ity of ORAL 11:23: [place] [address] Medical Branch levocarniti 0 Yes Take by Uni vers ne 17 mouth. ity of (L-CARNITIN 11:23: [place] E ORAL) 10 Medical Branch pyridoxine Yes Take by Univ ers HCl, 17 mouth ity of vitamin B6, 11:23: daily. [facility] s (VITAMIN 10 Medical B-6 ORAL) Branch methocarbam Yes 750mg Take 750 U nivers ol 750 mg 1-17 mg by ity of tablet 11:23: mouth 2 [place] [address] (two) Medical times Branch daily. b[place] 2022-[address] 8 mg [facility] ne-naloxone 1-17 under the ity of 8-2 mg 11:23: tongue [place] sublingual 10 every 12 Medic al film (twelve) Branch hours as needed for Pain (scale 7-10). Cholecalcif 2022-0 Yes 1{tbl} Take 1 [place], 1-17 tablet by ity of Vitamin D3, 11:23: mouth [place] 50 mcg 10 daily. Medical (2,000 Branch unit) tablet ZINC ORAL 2022-0 Yes Take by Unive rs 1-17 mouth ity of 11:23: daily. [place] [address] Medical Branch COQ10, 0 Yes Take by [facility] UBIQUINOL, 1-17 mouth. ity of ORAL 11:23: [place] [address] Medical Branch levocarniti 0 Yes Take by Uni vers ne 1-17 mouth. ity of (L-CARNITIN 11:23: [place] E ORAL) 10 Medical Branch pyridoxine 0 Yes Take by Univ ers HCl, 1-17 mouth ity of vitamin B6, 11:23: daily. [place] (VITAMIN 10 Medical B-6 ORAL) Branch methocarbam 0 Yes 750mg Take 750 U nivers ol 750 mg 1-17 mg by ity of tablet 11:23: mouth 2 [place] 10 (two) Medical times Branch daily. [place] [address] 8 mg [facility] ne-naloxone 1-17 under the ity of 8-2 mg 11:23: tongue [place] sublingual 10 every 12 Medic al film (twelve) Branch hours as needed for Pain (scale 7-10). Cholecalcif 0 Yes 1{tbl} Take 1 [place], 1-17 tablet by ity of Vitamin D3, 11:23: mouth [place] 50 mcg 10 daily. Medical (2,000 Branch unit) tablet ZINC ORAL 0 Yes Take by Unive rs 1-17 mouth ity of 11:23: daily. [address] Branch COQ10, 0 Yes Take by Univers UBIQUINOL, 1-17 mouth. ity of ORAL 11:23: [address] Branch levocarniti Yes Take by Uni vers ne 1-17 mouth. ity of (L-CARNITIN 11:23: [place] E ORAL) 10 Medical Branch pyridoxine 0 Yes Take by Univ ers HCl, 1-17 mouth ity of vitamin B6, 11:23: daily. [place] (VITAMIN 10 Medical B-6 ORAL) Branch methocarbam 0 Yes 750mg Take 750 U nivers ol 750 mg 1-17 mg by ity of tablet 11:23: mouth 2 [place] 10 (two) Medical times Branch daily. b[place] 2022-[address] 8 mg [facility] ne-naloxone 1-17 under the ity of 8-2 mg 11:23: tongue [place] sublingual 10 every 12 Medic al film (twelve) Branch hours as needed for Pain (scale 7-10). Cholecalcif 2022-0 Yes 1{tbl} Take 1 [place], 1-17 tablet by ity of Vitamin D3, 11:23: mouth [place] 50 mcg 10 daily. Medical (2,000 Branch unit) tablet ZINC ORAL 0 Yes Take by Unive rs 1-17 mouth ity of 11:23: daily. [address] Branch COQ10, 0 Yes Take by Univers UBIQUINOL, 1-17 mouth. ity of ORAL 11:23: [address] Branch levocarniti 0 Yes Take by Uni vers ne 1-17 mouth. ity of (L-CARNITIN 11:23: [place] E ORAL) 10 [facility] Branch pyridoxine 0 Yes Take by Univ ers HCl, 1-17 mouth ity of vitamin B6, 11:23: daily. [place] (VITAMIN 10 Medical B-6 ORAL) Branch methocarbam 0 Yes 750mg Take 750 U nivers ol 750 mg 1-17 mg by ity of tablet 11:23: mouth 2 [place] 10 (two) Medical times Branch daily. [place] [address] 8 mg [facility] ne-naloxone 1-17 under the ity of 8-2 mg 11:23: tongue [place] sublingual 10 every 12 Medic al film (twelve) Branch hours as needed for Pain (scale 7-10). Cholecalcif 0 Yes 1{tbl} Take 1 [place], 1-17 tablet by ity of Vitamin D3, 11:23: mouth [place] 50 mcg 10 daily. Medical (2,000 Branch unit) tablet ZINC ORAL 0 Yes Take by Unive rs 1-17 mouth ity of 11:23: daily. [address] Branch COQ10, 0 Yes Take by Univers UBIQUINOL, 1-17 mouth. ity of ORAL 11:23: [address] Branch levocarniti 0 Yes Take by Uni vers ne 1-17 mouth. ity of (L-CARNITIN 11:23: [place] E ORAL) 10 [facility] Branch pyridoxine 0 Yes Take by Univ ers HCl, 1-17 mouth ity of vitamin B6, 11:23: daily. [place] (VITAMIN 10 Medical B-6 ORAL) Branch methocarbam 0 Yes 750mg Take 750 U nivers ol 750 mg 1-17 mg by ity of tablet 11:23: mouth 2 [place] 10 (two) Medical times Branch daily. b[place] 2022-[address] 8 mg Univers ne-naloxone 1-17 under the ity of 8-2 mg 11:23: tongue [place] sublingual 10 every 12 Medic al film (twelve) Branch hours as needed for Pain (scale 7-10). Cholecalcif 0 Yes 1{tbl} Take 1 [place], 1-17 tablet by ity of Vitamin D3, 11:23: mouth [place] 50 mcg 10 daily. Medical (2,000 Branch unit) tablet ZINC ORAL 0 Yes Take by Unive rs 1-17 mouth ity of 11:23: daily. [place] 10 Medical Branch COQ10, 0 Yes Take by Univers UBIQUINOL, 1-17 mouth. ity of ORAL 11:23: [place] [address] Medical Branch levocarniti 0 Yes Take by Uni vers ne 1-17 mouth. ity of (L-CARNITIN 11:23: [place] E ORAL) 10 Medical Branch pyridoxine Yes Take by Univ ers HCl, 1-17 mouth ity of vitamin B6, 11:23: daily. [facility] s (VITAMIN 10 Medical B-6 ORAL) Branch methocarbam 0 Yes 750mg Take 750 U nivers ol 750 mg 1-17 mg by ity of tablet 11:23: mouth 2 [place] 10 (two) Medical times Branch daily. [place] Yes 8mg [address] 8 mg Univers ne-naloxone 1-17 under the ity of 8-2 mg 11:23: tongue [place] sublingual 10 every 12 Medic al film (twelve) Branch hours as needed for Pain (scale 7-10). Cholecalcif 0 Yes 1{tbl} Take 1 [place], 1-17 tablet by ity of Vitamin D3, 11:23: mouth [place] 50 mcg 10 daily. Medical (2,000 Branch unit) tablet ZINC ORAL 2022-0 Yes Take by Unive rs 1-17 mouth ity of 11:23: daily. [place] 10 Medical Branch COQ10, 0 Yes Take by Univers UBIQUINOL, 1-17 mouth. ity of ORAL 11:23: [place] [address] Medical Branch levocarniti 0 Yes Take by Uni vers ne 1-17 mouth. ity of (L-CARNITIN 11:23: [place] E ORAL) 10 Medical Branch pyridoxine 2023-0 Yes Take by Univ ers HCl, 1-17 mouth ity of vitamin B6, 11:23: daily. [place] (VITAMIN 10 Medical B-6 ORAL) Branch methocarbam 2022-0 Yes 750mg Take 750 U nivers ol 750 mg 1-17 mg by ity of tablet 11:23: mouth 2 [place] 10 (two) Medical times Branch daily. b[place] 2022-[address] 8 mg [facility] ne-naloxone 1-17 under the ity of 8-2 mg 11:23: tongue [place] sublingual 10 every 12 Medic al film (twelve) Branch hours as needed for Pain (scale 7-10). Cholecalcif 2022-0 Yes 1{tbl} Take 1 [place], 1-17 tablet by ity of Vitamin D3, 11:23: mouth [place] 50 mcg 10 daily. Medical (2,000 Branch unit) tablet ZINC ORAL 2022-0 Yes Take by Unive rs 1-17 mouth ity of 11:23: daily. [address] Branch COQ10, 0 Yes Take by [facility] UBIQUINOL, -17 mouth. ity of ORAL 11:23: [address] Branch levocarniti 0 Yes Take by Uni vers ne -17 mouth. ity of (L-CARNITIN 11:23: [place] E ORAL) Medical Branch pyridoxine 0 Yes Take by [facility] ers HCl, -17 mouth ity of vitamin B6, 11:23: daily. [place] (VITAMIN 10 Medical B-6 ORAL) Branch methocarbam 0 Yes 750mg Take 750 U nivers ol 750 mg 1-17 mg by ity of tablet 11:23: mouth 2 [place] [address] (two) Medical times Branch daily. b[place] 2022-[address] 8 mg [facility] ne-naloxone 1-17 under the ity of 8-2 mg 11:23: tongue [place] sublingual 10 every 12 Medic al film (twelve) Branch hours as needed for Pain (scale 7-10). Cholecalcif 2022-0 Yes 1{tbl} Take 1 [place], 1-17 tablet by ity of Vitamin D3, 11:23: mouth [place] 50 mcg 10 daily. Medical (2,000 Branch unit) tablet ZINC ORAL 2022-0 Yes Take by Unive rs 1-17 mouth ity of 11:23: daily. [address] Branch COQ10, 0 Yes Take by Univers UBIQUINOL, 1-17 mouth. ity of ORAL 11:23: [address] Branch levocarniti 0 Yes Take by Uni vers ne -17 mouth. ity of (L-CARNITIN 11:23: [place] E ORAL) 10 [facility] Branch pyridoxine Yes Take by Univ ers HCl, -17 mouth ity of vitamin B6, 11:23: daily. [place] (VITAMIN 10 Medical B-6 ORAL) Branch methocarbam 0 Yes 750mg Take 750 U nivers ol 750 mg 1-17 mg by ity of tablet 11:23: mouth 2 [place] [address] (two) Medical times Branch daily. [place] [address] 8 mg [facility] ne-naloxone 1-17 under the ity of 8-2 mg 11:23: tongue [place] sublingual 10 every 12 Medic al film (twelve) Branch hours as needed for Pain (scale 7-10). Cholecalcif 0 Yes 1{tbl} Take 1 [place], 1-17 tablet by ity of Vitamin D3, 11:23: mouth [place] 50 mcg 10 daily. Medical (2,000 Branch unit) tablet ZINC ORAL 0 Yes Take by Unive rs 1-17 mouth ity of 11:23: daily. [address] Branch COQ10, 0 Yes Take by Univers UBIQUINOL, -17 mouth. ity of ORAL 11:23: [address] Branch levocarniti Yes Take by Uni vers ne -17 mouth. ity of (L-CARNITIN 11:23: [place] E ORAL) [address] [place] [address] Branch pyridoxine 0 Yes Take by Univ ers HCl, -17 mouth ity of vitamin B6, 11:23: daily. [place] (VITAMIN 10 Medical B-6 ORAL) Branch methocarbam 0 Yes 750mg Take 750 U nivers ol 750 mg 1-17 mg by ity of tablet 11:23: mouth 2 [place] 10 (two) Medical times Branch daily. [place] [address] 8 mg [facility] ne-naloxone 1-17 under the ity of 8-2 mg 11:23: tongue [place] sublingual 10 every 12 Medic al film (twelve) Branch hours as needed for Pain (scale 7-10). Cholecalcif 2022-0 Yes 1{tbl} Take 1 [place], 1-17 tablet by ity of Vitamin D3, 11:23: mouth [place] 50 mcg 10 daily. Medical (2,000 Branch unit) tablet ZINC ORAL 2022-0 Yes Take by Unive rs 1-17 mouth ity of 11:23: daily. [place] [address] Medical Branch COQ10, 0 Yes Take by Univers UBIQUINOL, 1-17 mouth. ity of ORAL 11:23: [place] [address] Medical Branch levocarniti 0 Yes Take by Uni vers ne -17 mouth. ity of (L-CARNITIN 11:23: [place] E ORAL) 10 Medical Branch pyridoxine 0 Yes Take by Univ ers HCl, -17 mouth ity of vitamin B6, 11:23: daily. [place] (VITAMIN 10 Medical B-6 ORAL) Branch methocarbam 0 Yes 750mg Take 750 U nivers ol 750 mg 1-17 mg by ity of tablet 11:23: mouth 2 [place] 10 (two) Medical times Branch daily. [place] [address] 8 mg [facility] ne-naloxone 1-17 under the ity of 8-2 mg 11:23: tongue [place] sublingual 10 every 12 Medic al film (twelve) Branch hours as needed for Pain (scale 7-10). Cholecalcif 0 Yes 1{tbl} Take 1 [place], 1-17 tablet by ity of Vitamin D3, 11:23: mouth [place] 50 mcg 10 daily. Medical (2,000 Branch unit) tablet ZINC ORAL 2022-0 Yes Take by Unive rs 1-17 mouth ity of 11:23: daily. [place] [address] Medical Branch COQ10, 0 Yes Take by Univers UBIQUINOL, 1-17 mouth. ity of ORAL 11:23: [place] [address] Medical Branch levocarniti 0 Yes Take by Uni vers ne 1-17 mouth. ity of (L-CARNITIN 11:23: [place] E ORAL) 10 Medical Branch pyridoxine 0 Yes Take by Univ ers HCl, 1-17 mouth ity of vitamin B6, 11:23: daily. [place] (VITAMIN 10 Medical B-6 ORAL) Branch methocarbam 2022-0 Yes 750mg Take 750 U nivers ol 750 mg 1-17 mg by ity of tablet 11:23: mouth 2 [place] 10 (two) Medical times Branch daily. b[place] 2022-[address] 8 mg Univers ne-naloxone 1-17 under the ity of 8-2 mg 11:23: tongue [place] sublingual 10 every 12 Medic al film (twelve) Branch hours as needed for Pain (scale 7-10). Cholecalcif 2022-0 Yes 1{tbl} Take 1 [place], 1-17 tablet by ity of Vitamin D3, 11:23: mouth [place] 50 mcg 10 daily. Medical (2,000 Branch unit) tablet ZINC ORAL 0 Yes Take by Unive rs 1-17 mouth ity of 11:23: daily. [address] Branch COQ10, Yes Take by Univers UBIQUINOL, -17 mouth. ity of ORAL 11:23: [place] [address] Medical Branch levocarniti 0 Yes Take by Uni vers ne 17 mouth. ity of (L-CARNITIN 11:23: [place] E ORAL) Medical Branch pyridoxine Yes Take by Univ ers HCl, -17 mouth ity of vitamin B6, 11:23: daily. [place] (VITAMIN 10 Medical B-6 ORAL) Branch methocarbam 0 Yes 750mg Take 750 U nivers ol 750 mg 1-17 mg by ity of tablet 11:23: mouth 2 [place] 10 (two) Medical times Branch daily. bupren[place] 2022-[address] 8 mg Univers ne-naloxone 1-17 under the ity of 8-2 mg 11:23: tongue [place] sublingual 10 every 12 Medic al film (twelve) Branch hours as needed for Pain (scale 7-10). Cholecalcif 2022-0 Yes 1{tbl} Take 1 [place], 1-17 tablet by ity of Vitamin D3, 11:23: mouth [place] 50 mcg 10 daily. Medical (2,000 Branch unit) tablet ZINC ORAL 2022-0 Yes Take by Unive rs 1-17 mouth ity of 11:23: daily. [place] [address] Medical Branch COQ10, 0 Yes Take by Univers UBIQUINOL, 1-17 mouth. ity of ORAL 11:23: [place] [address] Medical Branch levocarniti 0 Yes Take by Uni vers ne -17 mouth. ity of (L-CARNITIN 11:23: [place] E ORAL) 10 Medical Branch pyridoxine 0 Yes Take by Univ ers HCl, -17 mouth ity of vitamin B6, 11:23: daily. [place] (VITAMIN 10 Medical B-6 ORAL) Branch methocarbam 0 Yes 750mg Take 750 U nivers ol 750 mg 1-17 mg by ity of tablet 11:23: mouth 2 [place] 10 (two) Medical times Branch daily. [place] [address] 8 mg [facility] ne-naloxone 1-17 under the ity of 8-2 mg 11:23: tongue [place] sublingual 10 every 12 Medic al film (twelve) Branch hours as needed for Pain (scale 7-10). Cholecalcif 0 Yes 1{tbl} Take 1 [place], 1-17 tablet by ity of Vitamin D3, 11:23: mouth [place] 50 mcg 10 daily. Medical (2,000 Branch unit) tablet ZINC ORAL 0 Yes Take by Unive rs -17 mouth ity of 11:23: daily. [address] Branch COQ10, 0 Yes Take by [facility] UBIQUINOL, -17 mouth. ity of ORAL 11:23: [address] Branch levocarniti Yes Take by Uni vers ne -17 mouth. ity of (L-CARNITIN 11:23: [place] E ORAL) 10 Medical Branch pyridoxine 0 Yes Take by Univ ers HCl, -17 mouth ity of vitamin B6, 11:23: daily. [place] (VITAMIN 10 Medical B-6 ORAL) Branch methocarbam 0 Yes 750mg Take 750 U nivers ol 750 mg 1-17 mg by ity of tablet 11:23: mouth 2 [place] 10 (two) Medical times Branch daily. b[place] [address] 8 mg [facility] ne-naloxone 1-17 under the ity of 8-2 mg 11:23: tongue [place] sublingual 10 every 12 Medic al film (twelve) Branch hours as needed for Pain (scale 7-10). Cholecalcif 0 Yes 1{tbl} Take 1 [place], 1-17 tablet by ity of Vitamin D3, 11:23: mouth [place] 50 mcg 10 daily. Medical (2,000 Branch unit) tablet ZINC ORAL 0 Yes Take by Unive rs 1-17 mouth ity of 11:23: daily. [place] [address] Medical Branch COQ10, 0 Yes Take by [facility] UBIQUINOL, -17 mouth. ity of ORAL 11:23: [place] [address] Medical Branch levocarniti 0 Yes Take by Uni vers ne -17 mouth. ity of (L-CARNITIN 11:23: [place] E ORAL) 10 Medical Branch pyridoxine 0 Yes Take by Univ ers HCl, -17 mouth ity of vitamin B6, 11:23: daily. [place] (VITAMIN 10 Medical B-6 ORAL) Branch methocarbam Yes 750mg Take 750 U nivers ol 750 mg 1-17 mg by ity of tablet 11:23: mouth 2 [place] 10 (two) Medical times Branch daily. b[place] Yes 8mg [address] 8 mg [facility] ne-naloxone -17 under the ity of 8-2 mg 11:23: tongue [place] sublingual 10 every 12 Medic al film (twelve) Branch hours as needed for Pain (scale 7-10). Cholecalcif Yes 1{tbl} Take 1 [place], 1-17 tablet by ity of Vitamin D3, 11:23: mouth [place] 50 mcg 10 daily. Medical (2,000 Branch unit) tablet ZINC ORAL 0 Yes Take by Unive rs 1-17 mouth ity of 11:23: daily. [address] Branch COQ10, 0 Yes Take by [facility] UBIQUINOL, 1-17 mouth. ity of ORAL 11:23: [place] [address] Medical Branch levocarniti 0 Yes Take by Uni vers ne -17 mouth. ity of (L-CARNITIN 11:23: [place] E ORAL) 10 Medical Branch pyridoxine 0 Yes Take by Univ ers HCl, 1-17 mouth ity of vitamin B6, 11:23: [place]. [place] (VITAMIN 10 Medical B-6 ORAL) Branch methocarbam 2023-0 Yes 750mg Take 750 U nivers ol 750 mg 1-17 mg by ity of tablet 11:23: mouth 2 [place] 10 (two) Medical times Branch daily. buprenorphi 2022-[address] 8 mg Univers ne-naloxone 1-17 under the ity of 8-2 mg 11:23: tongue [place] sublingual 10 every 12 Medic al film (twelve) Branch hours as needed for Pain (scale 7-10). Cholecalcif 2022-0 Yes 1{tbl} Take 1 [place], 1-17 tablet by ity of Vitamin D3, 11:23: mouth [place] 50 mcg 10 daily. Medical (2,000 Branch unit) tablet ZINC ORAL 0 Yes Take by Unive rs 1-17 mouth ity of 11:23: daily. [address] Branch COQ10, 0 Yes Take by [facility] UBIQUINOL, 1-17 mouth. ity of ORAL 11:23: [address] levocarniti Yes Take by Uni vers ne -17 mouth. ity of (L-CARNITIN 11:23: [place] E ORAL) [address] [place] [address] Branch pyridoxine 0 Yes Take by Univ ers HCl, -17 mouth ity of vitamin B6, 11:23: daily. [place] [facility] (VITAMIN 10 Medical B-6 ORAL) Branch methocarbam 0 Yes 750mg Take 750 U nivers ol 750 mg 1-17 mg by ity of tablet 11:23: mouth 2 [place] [address] (two) Medical times Branch daily. buprenorphi 2022-[address] 8 mg Univers ne-naloxone 1-17 under the ity of 8-2 mg 11:23: tongue [place] sublingual 10 every 12 Medic al film (twelve) Branch hours as needed for Pain (scale 7-10). Cholecalcif 2022-0 Yes 1{tbl} Take 1 [place], 1-17 tablet by ity of Vitamin D3, 11:23: mouth [place] 50 mcg 10 daily. Medical (2,000 Branch unit) tablet ZINC ORAL 0 Yes Take by Unive rs 1-17 mouth ity of 11:23: daily. [address] COQ10, 0 Yes Take by [facility] UBIQUINOL, 1-17 mouth. ity of ORAL 11:23: [address] levocarniti Yes Take by Uni vers ne 17 mouth. ity of (L-CARNITIN 11:23: [place] E ORAL) [address] [place] [address] Branch pyridoxine Yes Take by Univ ers HCl, 17 mouth ity of vitamin B6, 11:23: [place]. [place] (VITAMIN 10 Medical B-6 ORAL) Branch methocarbam Yes 750mg Take 750 U nivers ol 750 mg 1-17 mg by ity of tablet 11:23: mouth 2 [place] 10 (two) Medical times Branch daily. buprenorphi Yes 8mg Place 8 mg Univers ne-naloxone 17 under the ity of 8-2 mg 11:23: tongue [place] sublingual 10 every 12 Medic al film (twelve) Branch hours as needed for Pain (scale 7-10). Cholecalcif Yes 1{tbl} Take 1 [place], 17 tablet by ity of Vitamin D3, 11:23: mouth [place] 50 mcg 10 daily. Medical (2,000 Branch unit) tablet ZINC ORAL Yes Take by Unive rs 07-09 mouth ity of 11:23: daily. [address] COQ10, Yes Take by [facility] UBIQUINOL, 17 mouth. ity of ORAL 11:23: [address] Branch levocarniti Yes Take by Uni vers ne 17 mouth. ity of (L-CARNITIN 11:23: [place] E ORAL) [address] [place] [address] Branch nitroglycer Yes .4mg 0.4 mg, Uni vers in 07-09 Sublingual ity of (NITROSTAT) 11:06: , Q5MIN [place] sublingual 35 PRN, Medical tablet 0.4 Starting Branc h mg on Fri07/09/22 at 0506, Until Discontinu ed, Routine, Chest pain docusate Yes 100mg 100 mg, Unive rs (COLACE) 07-09 Oral, ity of capsule 100 11:05: BIDPRN, [place] mg 31 Starting Medical on Branch 07/09/22 at 0505, Until Discontinu ed, Routine, Constipati on clonazePAM Yes 1mg 1 mg, Univer s (KLONOPIN) 1-17 Oral, ity of tablet 1 mg 11:05: TIDPRN, [place] 01 Starting Medical on Fri07/09/22 at 0505, Until Discontinu ed, Routine, anxiety buprenorphi Yes 8mg 8 mg, Unive rs ne-naloxone 07-09 Sublingual it y of (SUBOXONE) 11:02: , [id number], [place] 8-2 mg 51 Starting Medical sublingual on Fri film 8 mg 07/09/22 at 0502, Until Discontinu ed, Routine, Pain (scale 7-10)
R kathrin for non-formul philip use: PATIENT CURRENTLY TAKING NONFORMULA RY PRODUCT
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 1:1:1 Fri Branch ([facility] 07/08/22 at [facility]) 1900, oral Routine suspension 15 mL morpHINE (2 2022- No 4mg 4 mg, Slow Univers mg/mL) 07-09 IV Push, ity of injection 4 00:40: 11:08 Q4HPRN, [place] mg 10 :15 Starting Medical on Fri07/08/22 at 1840, Until Fri07/09/22 at 0508, Routine, Pain (scale 7-10) HYDROcodone 2022- No 1{tbl} 1 tablet, Univers -acetaminop 07-09 Oral, ity of hen (NORCO 00:40: 00:39 Q6HPRN, [place] 5) 5-325 mg 06 :06 Starting Medi marium tablet 1 on Fri Branch tablet 07/08/22 at 1840, Until Fri07/10/22 at 1839, Routine, Pain (scale 4-6) acetaminoph Yes 650mg 650 mg, [place] 07-09 Oral, ity of (TYLENOL) 00:40: Q6HPRN, [place] tablet 650 05 Starting Medic al mg on Fri Branch 07/08/22 at 1840, Until Discontinu ed, Routine, Pain (scale 1-3) ondansetron Yes 4mg 4 mg, Slow Univers (ZOFRAN 07-08 IV Push, ity of (PF)) 22:50: Q30MIN [place] injection 4 04 PRN, 2 Medica l mg doses, Branch Starting on Fri07/08/22 at 1650, Until Discontinu ed, LIVIA, Nausea and Vomiting (N/V) FENTanyl PF 2022- No 50ug 50 mcg, Un [place] (SUBLIMAZE 07-08 Slow IV ity o f (PF)) 22:50: 11:08 Push, [place] injection 03 :15 Q30MIN Medical 50 mcg PRN, 2 Branch doses, Starting on Fri07/08/22 at 1650, Until Fri07/09/22 at 0508, Routine, Pain (scale 7-10) metoprolol 2022- No 12.5mg Take 12.5 Univers tartrate 25 1-03 01-03 mg by ity of mg tablet 17:31: 00:00 mouth as [place] as 38 :00 needed Medical (afib). Branch metoprolol 2022- No 12.5mg Take 12.5 Univers tartrate 25 1-03 01-03 mg by ity of mg tablet 17:31: 00:00 mouth as [place] as 38 :00 needed Medical (afib). Branch metoprolol 2022-2022- No 12.5mg Take 12.5 Univers tartrate 25 1-03 01-03 mg by ity of mg tablet 17:31: 00:00 mouth as [place] as 38 :00 needed Medical (afib). Branch metoprolol 2022-0 2022- No 12.5mg Take 12.5 Univers tartrate 25 1-03 01-03 mg by ity of mg tablet 17:31: 00:00 mouth as [place] as 38 :00 needed Medical (afib). Branch metoprolol 2022- No 12.5mg Take 12.5 Univers tartrate 25 1-03 01-03 mg by ity of mg tablet 17:31: 00:00 mouth as [place] as 38 :00 needed Medical (afib). Branch metoprolol 2022-0 3- No 12.5mg Take 12.5 Univers tartrate 25 1-03 01-03 mg by ity of mg tablet 17:31: 00:00 mouth as [place] as 38 :00 needed Medical (afib). Branch clonazePAM 2022-0 Yes [id number] Take 1 U nivers 1 mg tablet 1-03 pill PO in it y of 00:00: the AM, 1 [place] 00 PO in the Medical afternoon, Branch 1 pill PO in the evening. May take additional 1/2 pill as needed for acute anxiety. clonazePAM 2022-0 Yes [id number] Take 1 U nivers 1 mg tablet 1-03 pill PO in it y of 00:00: the AM, 1 [place] 00 PO in the Medical afternoon, Branch 1 pill PO in the evening. May take additional 1/2 pill as needed for acute anxiety. clonazePAM 2022-0 Yes [id number] Take 1 U nivers 1 mg tablet 1-03 pill PO in it y of 00:00: the AM, 1 [place] 00 PO in the Medical afternoon, Branch 1 pill PO in the evening. May take additional 1/2 pill as needed for acute anxiety. clonazePAM 2022-0 Yes [id number] Take 1 U nivers 1 mg tablet 1-03 pill PO in it y of 00:00: the AM, 1 [place] 00 PO in the Medical afternoon, Branch 1 pill PO in the evening. May take additional 1/2 pill as needed for acute anxiety. bumetanide 2022-0 Yes [id number] 4mg Take 2 Univers 2 mg tablet 1-03 tablets by it y of 00:00: mouth in [place] the morning Branch and 2 tablets in the evening. KCL 20 2022-0 Yes [id number] 90meq Take 67.5 U nivers mEq/15 mL 1-03 mL by ity of solution 00:00: mouth in [place] the morning Branch and 67.5 mL in the evening. metoprolol 2022-0 Yes 12.5mg Take 0.5 U nivers tartrate 25 1-03 tablets by it y of mg tablet 00:00: mouth [place] 00 needed Medical (afib). Branch nitroglycer 2022-[address] 1 Uni vers in 1-03 tablet ity of (NITROSTAT) 00:00: under the [place] 0.4 mg 00 tongue Medical sublingual every 5 Branch tablet (five) minutes as needed for Chest pain. clonazePAM 3-0 Yes [id number] Take 1 U nivers 1 mg tablet 1-03 pill PO in it y of 00:00: the AM, 1 [place] 00 PO in the Medical afternoon, Branch 1 pill PO in the evening. May take additional 1/2 pill as needed for acute anxiety. bumetanide 3-0 Yes [id number] 4mg Take 2 Univers 2 mg tablet 1-03 tablets by it y of 00:00: mouth in [place] 00 the Medical morning Branch and 2 tablets in the evening. KCL 20 2022-0 Yes [id number] 90meq Take 67.5 U nivers mEq/15 mL 1-03 mL by ity of solution 00:00: mouth in [place] 00 the Medical morning Branch and 67.5 mL in the evening. metoprolol 2022-0 Yes 12.5mg Take 0.5 U nivers tartrate 25 1-03 tablets by it y of mg tablet 00:00: mouth as [place] 00 needed Medical (afib). Branch nitroglycer 2022-[address] 1 Uni vers in 1-03 tablet ity of (NITROSTAT) 00:00: under the [place] 0.4 mg 00 tongue Medical sublingual every 5 Branch tablet (five) minutes as needed for Chest pain. clonazePAM 2022-0 Yes [id number] Take 1 U nivers 1 mg tablet 1-03 pill PO in it y of 00:00: the AM, 1 [place] 00 PO in the Medical afternoon, Branch 1 pill PO in the evening. May take additional 1/2 pill as needed for acute anxiety. bumetanide 3-0 Yes [id number] 4mg Take 2 Univers 2 mg tablet 1-03 tablets by it y of 00:00: mouth in [place] 00 the Medical morning Branch and 2 tablets in the evening. KCL 20 2022-0 Yes [id number] 90meq Take 67.5 U nivers mEq/15 mL 1-03 mL by ity of solution 00:00: mouth in [place] 00 the Medical morning Branch and 67.5 mL in the evening. metoprolol 3-0 Yes 12.5mg Take 0.5 U nivers tartrate 25 1-03 tablets by it y of mg tablet 00:00: mouth as [place] 00 needed Medical (afib). Branch nitroglycer 2022-[address] 1 Uni vers in 1-03 tablet ity of (NITROSTAT) 00:00: under the [place] 0.4 mg 00 tongue Medical sublingual every 5 Branch tablet (five) minutes as needed for Chest pain. clonazePAM 3-0 Yes [id number] Take 1 U nivers 1 mg tablet 1-03 pill PO in it y of 00:00: the AM, 1 [place] 00 PO in the Medical afternoon, Branch 1 pill PO in the evening. May take additional 1/2 pill as needed for acute anxiety. bumetanide 2022-0 Yes [id number] 4mg Take 2 Univers 2 mg tablet 1-03 tablets by it y of 00:00: mouth in [place] 00 the Medical morning Branch and 2 tablets in the evening. KCL 20 2022-0 Yes [id number] 90meq Take 67.5 U nivers mEq/15 mL 1-03 mL by ity of solution 00:00: mouth in [place] 00 the Medical morning Branch and 67.5 mL in the evening. metoprolol 2022-0 Yes 12.5mg Take 0.5 U nivers tartrate 25 1-03 tablets by it y of mg tablet 00:00: mouth as [place] 00 needed Medical (afib). Branch nitroglycer 2022-[address] 1 Uni vers in 1-03 tablet ity of (NITROSTAT) 00:00: under the [place] 0.4 mg 00 tongue Medical sublingual every 5 Branch tablet (five) minutes as needed for Chest pain. clonazePAM 2022-0 Yes [id number] Take 1 U nivers 1 mg tablet 1-03 pill PO in it y of 00:00: the AM, 1 [place] 00 PO in the Medical afternoon, Branch 1 pill PO in the evening. May take additional 1/2 pill as needed for acute anxiety. bumetanide 2022-0 Yes [id number] 4mg Take 2 Univers 2 mg tablet 1-03 tablets by it y of 00:00: mouth in [place] [address] the Medical morning Branch and 2 tablets in the evening. KCL 20 2022-0 Yes [id number] 90meq Take 67.5 U nivers mEq/15 mL 1-03 mL by ity of solution 00:00: mouth in [place] 00 the Medical morning Branch and 67.5 mL in the evening. metoprolol 2023-0 Yes 12.5mg Take 0.5 U nivers tartrate 25 1-03 tablets by it y of mg tablet 00:00: mouth as [place] 00 needed Medical (afib). Branch nitroglycer 2023-[address] 1 Uni vers in 1-03 tablet ity of (NITROSTAT) 00:00: under the [place] 0.4 mg 00 tongue Medical sublingual every 5 Branch tablet (five) minutes as needed for Chest pain. bumetanide 2023-0 Yes [id number] 4mg Take 2 Univers 2 mg tablet 1-03 tablets by it y of 00:00: mouth in [place] [address] the Medical morning Branch and 2 tablets in the evening. KCL 20 2022-0 Yes [id number] 90meq Take 67.5 U nivers mEq/15 mL 1-03 mL by ity of solution 00:00: mouth in [place] [address] the Medical morning Branch and 67.5 mL in the evening. metoprolol 2023-0 Yes 12.5mg Take 0.5 U nivers tartrate 25 1-03 tablets by it y of mg tablet 00:00: mouth as [place] 00 needed Medical (afib). Branch nitroglycer 2023-[address] 1 Uni vers in 1-03 tablet ity of (NITROSTAT) 00:00: under the [place] 0.4 mg 00 tongue Medical sublingual every 5 Branch tablet (five) minutes as needed for Chest pain. bumetanide 2023-0 Yes [id number] 4mg Take 2 Univers 2 mg tablet 1-03 tablets by it y of 00:00: mouth in [place] [address] the Medical morning Branch and 2 tablets in the evening. KCL 20 3-0 Yes [id number] 90meq Take 67.5 U nivers mEq/15 mL 1-03 mL by ity of solution 00:00: mouth in [place] [address] the Medical morning Branch and 67.5 mL in the evening. metoprolol 2023-0 Yes 12.5mg Take 0.5 U nivers tartrate 25 1-03 tablets by it y of mg tablet 00:00: mouth as [place] 00 needed Medical (afib). Branch nitroglycer 2023-[address] 1 Uni vers in 1-03 tablet ity of (NITROSTAT) 00:00: under the [place] 0.4 mg 00 tongue Medical sublingual every 5 Branch tablet (five) minutes as needed for Chest pain. bumetanide 3-0 Yes [id number] 4mg Take 2 Univers 2 mg tablet 1-03 tablets by it y of 00:00: mouth in [place] 00 the Medical morning Branch and 2 tablets in the evening. KCL 20 2022-0 Yes [id number] 90meq Take 67.5 U nivers mEq/15 mL 1-03 mL by ity of solution 00:00: mouth in [place] 00 the Medical morning Branch and 67.5 mL in the evening. metoprolol 3-0 Yes 12.5mg Take 0.5 U nivers tartrate 25 1-03 tablets by it y of mg tablet 00:00: mouth as [place] 00 needed Medical (afib). Branch nitroglycer 2022-[address] 1 Uni vers in 1-03 tablet ity of (NITROSTAT) 00:00: under the [place] 0.4 mg 00 tongue Medical sublingual every 5 Branch tablet (five) minutes as needed for Chest pain. bumetanide 2022-0 Yes [id number] 4mg Take 2 Univers 2 mg tablet 1-03 tablets by it y of 00:00: mouth in [place] [address] the Medical morning Branch and 2 tablets in the evening. KCL 20 2022-0 Yes [id number] 90meq Take 67.5 U nivers mEq/15 mL 1-03 mL by ity of solution 00:00: mouth in [place] [address] the Medical morning Branch and 67.5 mL in the evening. metoprolol 3-0 Yes 12.5mg Take 0.5 U nivers tartrate 25 1-03 tablets by it y of mg tablet 00:00: mouth as [place] 00 needed Medical (afib). Branch nitroglycer 3-[address] 1 Uni vers in 1-03 tablet ity of (NITROSTAT) 00:00: under the [place] 0.4 mg 00 tongue Medical sublingual every 5 Branch tablet (five) minutes as needed for Chest pain. bumetanide 2023-0 Yes [id number] 4mg Take 2 Univers 2 mg tablet 1-03 tablets by it y of 00:00: mouth in [place] 00 the Medical morning Branch and 2 tablets in the evening. KCL 20 2022-0 Yes [id number] 90meq Take 67.5 U nivers mEq/15 mL 1-03 mL by ity of solution 00:00: mouth in [place] 00 the Medical morning Branch and 67.5 mL in the evening. metoprolol 2023-0 Yes 12.5mg Take 0.5 U nivers tartrate 25 1-03 tablets by it y of mg tablet 00:00: mouth as [place] 00 needed Medical (afib). Branch nitroglycer 3-[address] 1 Uni vers in 1-03 tablet ity of (NITROSTAT) 00:00: under the [place] 0.4 mg 00 tongue Medical sublingual every 5 Branch tablet (five) minutes as needed for Chest pain. bumetanide 2022-0 Yes [id number] 4mg Take 2 Univers 2 mg tablet 1-03 tablets by it y of 00:00: mouth in [place] [address] the Medical morning Branch and 2 tablets in the evening. KCL 20 2022-0 Yes [id number] 90meq Take 67.5 U nivers mEq/15 mL 1-03 mL by ity of solution 00:00: mouth in [place] [address] the Medical morning Branch and 67.5 mL in the evening. metoprolol 2022-0 Yes 12.5mg Take 0.5 U nivers tartrate 25 1-03 tablets by it y of mg tablet 00:00: mouth as [place] 00 needed Medical (afib). Branch nitroglycer 3-[address] 1 Uni vers in 1-03 tablet ity of (NITROSTAT) 00:00: under the [place] 0.4 mg 00 tongue Medical sublingual every 5 Branch tablet (five) minutes as needed for Chest pain. bumetanide 3-0 Yes [id number] 4mg Take 2 [facility] 2 mg tablet 1-03 tablets by it y of 00:00: mouth in [place] [address] the Medical morning Branch and 2 tablets in the evening. KCL 20 2022-0 Yes [id number] 90meq Take 67.5 U nivers mEq/15 mL 1-03 mL by ity of solution 00:00: mouth in [place] 00 the Medical morning Branch and 67.5 mL in the evening. metoprolol 2023-0 Yes 12.5mg Take 0.5 U nivers tartrate 25 1-03 tablets by it y of mg tablet 00:00: mouth as [place] 00 needed Medical (afib). Branch nitroglycer 2023-[address] 1 Uni vers in 1-03 tablet ity of (NITROSTAT) 00:00: under the [place] 0.4 mg 00 tongue Medical sublingual every 5 Branch tablet (five) minutes as needed for Chest pain. bumetanide 2023-0 Yes [id number] 4mg Take 2 Univers 2 mg tablet 1-03 tablets by it y of 00:00: mouth in [place] 00 the Medical morning Branch and 2 tablets in the evening. KCL 20 2022-0 Yes [id number] 90meq Take 67.5 U nivers mEq/15 mL 1-03 mL by ity of solution 00:00: mouth in [place] 00 the Medical morning Branch and 67.5 mL in the evening. metoprolol 2023-0 Yes 12.5mg Take 0.5 U nivers tartrate 25 1-03 tablets by it y of mg tablet 00:00: mouth as [place] 00 needed Medical (afib). Branch nitroglycer 3-[address] 1 Uni vers in 1-03 tablet ity of (NITROSTAT) 00:00: under the [place] 0.4 mg 00 tongue Medical sublingual every 5 Branch tablet (five) minutes as needed for Chest pain. bumetanide 2023-0 Yes [id number] 4mg Take 2 Univers 2 mg tablet 1-03 tablets by it y of 00:00: mouth in [place] 00 the Medical morning Branch and 2 tablets in the evening. KCL 20 2022-0 Yes [id number] 90meq Take 67.5 U nivers mEq/15 mL 1-03 mL by ity of solution 00:00: mouth in [place] 00 the Medical morning Branch and 67.5 mL in the evening. metoprolol 2023-0 Yes 12.5mg Take 0.5 U nivers tartrate 25 1-03 tablets by it y of mg tablet 00:00: mouth as [place] 00 needed Medical (afib). Branch nitroglycer 2023-[address] 1 Uni vers in 1-03 tablet ity of (NITROSTAT) 00:00: under the [place] 0.4 mg 00 tongue Medical sublingual every 5 Branch tablet (five) minutes as needed for Chest pain. bumetanide 2023-0 Yes [id number] 4mg Take 2 [facility] 2 mg tablet 1-03 tablets by it y of 00:00: mouth in [place] 00 the Medical morning Branch and 2 tablets in the evening. KCL 20 2022-0 Yes [id number] 90meq Take 67.5 U nivers mEq/15 mL 1-03 mL by ity of solution 00:00: mouth in [place] 00 the Medical morning Branch and 67.5 mL in the evening. metoprolol 3-0 Yes 12.5mg Take 0.5 U nivers tartrate 25 1-03 tablets by it y of mg tablet 00:00: mouth as [place] 00 needed Medical (afib). Branch nitroglycer 2022-[address] 1 Uni vers in 1-03 tablet ity of (NITROSTAT) 00:00: under the [place] 0.4 mg 00 tongue Medical sublingual every 5 Branch tablet (five) minutes as needed for Chest pain. bumetanide 2022-0 Yes [id number] 4mg Take 2 Univers 2 mg tablet 1-03 tablets by it y of 00:00: mouth in [place] [address] the Medical morning Branch and 2 tablets in the evening. KCL 20 2022-0 Yes [id number] 90meq Take 67.5 U nivers mEq/15 mL 1-03 mL by ity of solution 00:00: mouth in [place] [address] the Medical morning Branch and 67.5 mL in the evening. metoprolol 3-0 Yes 12.5mg Take 0.5 U nivers tartrate 25 1-03 tablets by it y of mg tablet 00:00: mouth as [place] 00 needed Medical (afib). Branch nitroglycer 3-[address] 1 Uni vers in 1-03 tablet ity of (NITROSTAT) 00:00: under the [place] 0.4 mg 00 tongue Medical sublingual every 5 Branch tablet (five) minutes as needed for Chest pain. bumetanide 2023-0 Yes [id number] 4mg Take 2 [facility] 2 mg tablet 1-03 tablets by it y of 00:00: mouth in [place] [address] the Medical morning Branch and 2 tablets in the evening. KCL 20 2022-0 Yes [id number] 90meq Take 67.5 U nivers mEq/15 mL 1-03 mL by ity of solution 00:00: mouth in [place] 00 the Medical morning Branch and 67.5 mL in the evening. metoprolol 2022-0 Yes 12.5mg Take 0.5 U nivers tartrate 25 1-03 tablets by it y of mg tablet 00:00: mouth as [place] 00 needed Medical (afib). Branch nitroglycer 2022-[address] 1 Uni vers in 1-03 tablet ity of (NITROSTAT) 00:00: under the [place] 0.4 mg 00 tongue Medical sublingual every 5 Branch tablet (five) minutes as needed for Chest pain. bumetanide 2022-0 Yes [id number] 4mg Take 2 Univers 2 mg tablet 1-03 tablets by it y of 00:00: mouth in [place] 00 the Medical morning Branch and 2 tablets in the evening. KCL 20 2022-0 Yes [id number] 90meq Take 67.5 U nivers mEq/15 mL 1-03 mL by ity of solution 00:00: mouth in [place] 00 the Medical morning Branch and 67.5 mL in the evening. metoprolol 2022-0 Yes 12.5mg Take 0.5 U nivers tartrate 25 1-03 tablets by it y of mg tablet 00:00: mouth as [place] 00 needed Medical (afib). Branch nitroglycer 2022-[address] 1 Uni vers in -03 tablet ity of (NITROSTAT) 00:00: under the [place] 0.4 mg 00 tongue Medical sublingual every 5 Branch tablet (five) minutes as needed for Chest pain. bumetanide 2022-0 Yes [id number] 4mg Take 2 Univers 2 mg tablet 1-03 tablets by it y of 00:00: mouth in [place] 00 the Medical morning Branch and 2 tablets in the evening. KCL 20 2022-0 Yes [id number] 90meq Take 67.5 U nivers mEq/15 mL 1-03 mL by ity of solution 00:00: mouth in [place] 00 the Medical morning Branch and 67.5 mL in the evening. metoprolol 2022-0 Yes 12.5mg Take 0.5 U nivers tartrate 25 1-03 tablets by it y of mg tablet 00:00: mouth as [place] 00 needed Medical (afib). Branch nitroglycer 2023-[address] 1 Uni vers in 1-03 tablet ity of (NITROSTAT) 00:00: under the [place] 0.4 mg 00 tongue Medical sublingual every 5 Branch tablet (five) minutes as needed for Chest pain. bumetanide 2023-0 Yes [id number] 4mg Take 2 [facility] 2 mg tablet 1-03 tablets by it y of 00:00: mouth in [place] 00 the Medical morning Branch and 2 tablets in the evening. KCL 20 2022-0 Yes [id number] 90meq Take 67.5 U nivers mEq/15 mL 1-03 mL by ity of solution 00:00: mouth in [place] 00 the Medical morning Branch and 67.5 mL in the evening. metoprolol 2023-0 Yes 12.5mg Take 0.5 U nivers tartrate 25 1-03 tablets by it y of mg tablet 00:00: mouth as [place] 00 needed Medical (afib). Branch nitroglycer 2023-[address] 1 Uni vers in 1-03 tablet ity of (NITROSTAT) 00:00: under the [place] 0.4 mg 00 tongue Medical sublingual every 5 Branch tablet (five) minutes as needed for Chest pain. bumetanide 3-0 Yes [id number] 4mg Take 2 Univers 2 mg tablet 1-03 tablets by it y of 00:00: mouth in [place] 00 the Medical morning Branch and 2 tablets in the evening. KCL 20 2022-0 Yes [id number] 90meq Take 67.5 U nivers mEq/15 mL 1-03 mL by ity of solution 00:00: mouth in [place] [address] the Medical morning Branch and 67.5 mL in the evening. metoprolol 2023-0 Yes 12.5mg Take 0.5 U nivers tartrate 25 1-03 tablets by it y of mg tablet 00:00: mouth as [place] 00 needed Medical (afib). Branch nitroglycer 2023-[address] 1 Uni vers in 1-03 tablet ity of (NITROSTAT) 00:00: under the [place] 0.4 mg 00 tongue Medical sublingual every 5 Branch tablet (five) minutes as needed for Chest pain. bumetanide 2023-0 Yes [id number] 4mg Take 2 [facility] 2 mg tablet 1-03 tablets by it y of 00:00: mouth in [place] 00 the Medical morning Branch and 2 tablets in the evening. KCL 20 2022-0 Yes [id number] 90meq Take 67.5 U nivers mEq/15 mL 1-03 mL by ity of solution 00:00: mouth in [place] 00 the Medical morning Branch and 67.5 mL in the evening. metoprolol 3-0 Yes 12.5mg Take 0.5 U nivers tartrate 25 1-03 tablets by it y of mg tablet 00:00: mouth as [place] 00 needed Medical (afib). Branch nitroglycer 2022-[address] 1 Uni vers in 1-03 tablet ity of (NITROSTAT) 00:00: under the [place] 0.4 mg 00 tongue Medical sublingual every 5 Branch tablet (five) minutes as needed for Chest pain. bumetanide 2022-0 Yes [id number] 4mg Take 2 [facility] 2 mg tablet 1-03 tablets by it y of 00:00: mouth in [place] [address] the Medical morning Branch and 2 tablets in the evening. KCL 20 2022-0 Yes [id number] 90meq Take 67.5 U nivers mEq/15 mL 1-03 mL by ity of solution 00:00: mouth in [place] [address] the Medical morning Branch and 67.5 mL in the evening. metoprolol 3-0 Yes 12.5mg Take 0.5 [facility] tartrate 25 1-03 tablets by [facility] y [facility] mg tablet 00:[place]: [place] needed Medical (afib). Branch nitroglycer 3-[address] 1 [facility] vers in 1-03 tablet ity of (NITROSTAT) 00:00: under the [place] 0.4 mg 00 tongue Medical sublingual every 5 Branch tablet (five) minutes as needed for Chest pain. bumetanide 2023-0 Yes [id number] 4mg Take 2 [facility] 2 mg tablet 1-03 tablets by it y of 00:00: mouth in [place] [address] the Medical morning Branch and 2 tablets in the evening. KCL 20 2022-0 Yes [id number] 90meq Take 67.5 [facility] n[facility] mEq/15 mL 1-03 mL by ity of solution 00:00: mouth in [place] 00 the Medical morning Branch and 67.5 mL in the evening. metoprolol 2023-0 Yes 12.5mg Take 0.5 [facility] tartrate 25 1-03 tablets by [facility] y of mg tablet 00:00: mouth [place] needed Medical (afib). Branch nitroglycer 3-[address] 1 [facility] vers in 1-03 tablet ity of (NITROSTAT) 00:00: under the [place] 0.4 mg 00 tongue Medical sublingual every 5 Branch tablet (five) minutes as needed for Chest pain. bumetanide 2023-0 Yes [id number] 4mg Take 2 [facility] 2 mg tablet 1-03 tablets by it y of 00:00: mouth in [place] [address] the Medical morning Branch and 2 tablets in the evening. KCL 20 2022-0 Yes [id number] 90meq Take 67.5 [facility] mEq/15 mL 1-03 mL by ity of solution 00:00: mouth in [place] [address] the Medical morning Branch and 67.5 mL in the evening. metoprolol 3-0 Yes 12.5mg Take 0.5 [facility] tartrate 25 1-03 tablets by [facility] y [facility] mg tablet 00:00: mouth [place] needed Medical (afib). Branch nitroglycer 3-[address] 1 [facility] vers in 1-03 tablet ity of (NITROSTAT) 00:00: under the [place] 0.4 mg 00 tongue Medical sublingual every 5 Branch tablet (five) minutes as needed for Chest pain. bumetanide 3-0 Yes [id number] 4mg Take 2 [facility] 2 mg tablet 1-03 tablets by it y of 00:00: mouth in [place] [address] the Medical morning Branch and 2 tablets in the evening. KCL 20 2022-0 Yes [id number] 90meq Take 67.5 [facility] mEq/15 mL 1-03 mL by ity of solution 00:00: mouth in [place] [address] the Medical morning Branch and 67.5 mL in the evening. metoprolol 2023-0 Yes 12.5mg Take 0.5 [facility] tartrate 25 1-03 tablets by [facility] y of mg tablet 00:00: mouth [place] needed Medical (afib). Branch nitroglycer 2023-[address] 1 [facility] vers in 1-03 tablet ity of (NITROSTAT) 00:00: under the [place] 0.4 mg 00 tongue Medical sublingual every 5 Branch tablet (five) minutes as needed for Chest pain. bumetanide 2023-0 Yes [id number] 4mg Take 2 [facility] 2 mg tablet 1-03 tablets by it y of 00:00: mouth in [place] 00 the Medical morning Branch and 2 tablets in the evening. KCL 20 2022-0 Yes [id number] 90meq Take 67.5 [facility] mEq/15 mL 1-03 mL by ity of solution 00:00: mouth in [place] 00 the Medical morning Branch and 67.5 mL in the evening. metoprolol 2023-0 Yes 12.5mg Take 0.5 [facility] tartrate 25 1-03 tablets by [facility] y of mg tablet 00:00: mouth [place] needed Medical (afib). Branch nitroglycer 2023-[address] 1 [facility] vers in 1-03 tablet ity of (NITROSTAT) 00:00: under the [place] 0.4 mg 00 tongue Medical sublingual every 5 Branch tablet (five) minutes as needed for Chest pain. bumetanide 2023-0 Yes [id number] 4mg Take 2 [facility] 2 mg tablet 1-03 tablets by it y of 00:00: mouth in [place] [address] the Medical morning Branch and 2 tablets in the evening. KCL 20 2022-0 Yes [id number] 90meq Take 67.5 [facility] mEq/15 mL 1-03 mL by ity of solution 00:00: mouth in [place] [address] the Medical morning Branch and 67.5 mL in the evening. metoprolol 2023-0 Yes 12.5mg Take 0.5 [facility] tartrate 25 1-03 tablets by [facility] y of mg tablet 00:00: mouth [place] 00 needed Medical (afib). Branch nitroglycer 2023-[address] 1 [facility] vers in 1-03 tablet ity of (NITROSTAT) 00:00: under the [place] 0.4 mg 00 tongue Medical sublingual every 5 Branch tablet (five) minutes as needed for Chest pain. bumetanide 2023-0 Yes [id number] 4mg Take 2 [facility] 2 mg tablet 1-03 tablets by it y of 00:00: mouth in [place] 00 the Medical morning Branch and 2 tablets in the evening. KCL 20 2022-0 Yes [id number] 90meq Take 67.5 [facility] n[facility] mEq/15 mL 1-03 mL by ity of solution 00:00: mouth in [place] 00 the Medical morning Branch and 67.5 mL in the evening. metoprolol 2022-0 Yes 12.5mg Take 0.5 [facility] tartrate 25 1-03 tablets by [facility] y of mg tablet 00:00: mouth [place] 00 needed Medical (afib). Branch nitroglycer 2022-[address] 1 [facility] vers in 1-03 tablet ity of (NITROSTAT) 00:00: under the [place] 0.4 mg 00 tongue Medical sublingual every 5 Branch tablet (five) minutes as needed for Chest pain. bumetanide 2022-0 Yes [id number] 4mg Take 2 [facility] 2 mg tablet 1-03 tablets by it y of 00:00: mouth in [place] [address] the Medical morning Branch and 2 tablets in the evening. KCL 20 2022-0 Yes [id number] 90meq Take 67.5 [facility] mEq/15 mL 1-03 mL by ity of solution 00:00: mouth in [place] [address] the Medical morning Branch and 67.5 mL in the evening. metoprolol 2022-0 Yes 12.5mg Take 0.5 [facility] tartrate 25 1-03 tablets by [facility] y of mg tablet 00:00: mouth [place] 00 needed Medical (afib). Branch nitroglycer 2022-[address] 1 [facility] vers in 1-03 tablet ity of (NITROSTAT) 00:00: under the [place] 0.4 mg 00 tongue Medical sublingual every 5 Branch tablet (five) minutes as needed for Chest pain. bumetanide 3-0 Yes [id number] 4mg Take 2 [facility] 2 mg tablet 1-03 tablets by it y of 00:00: mouth in [place] [address] the Medical morning Branch and 2 tablets in the evening. KCL 20 2022-0 Yes [id number] 90meq Take 67.5 [facility] n[facility] mEq/15 mL 1-03 mL by ity of solution 00:00: mouth in [place] [address] the Medical morning Branch and 67.5 mL in the evening. metoprolol 2023-0 Yes 12.5mg Take 0.5 [facility] tartrate 25 1-03 tablets by [facility] y of mg tablet 00:00: mouth [place] 00 needed Medical (afib). Branch nitroglycer 3-[address] 1 [facility] vers in 1-03 tablet ity of (NITROSTAT) 00:00: under the [place] 0.4 mg 00 tongue Medical sublingual every 5 Branch tablet (five) minutes as needed for Chest pain. bumetanide 3-0 Yes [id number] 4mg Take 2 [facility] 2 mg tablet 1-03 tablets by it y of 00:00: mouth in [place] 00 the Medical morning Branch and 2 tablets in the evening. KCL 20 2022-0 Yes [id number] 90meq Take 67.5 [facility] n[facility] mEq/15 mL 1-03 mL by ity of solution 00:00: mouth in [place] 00 the Medical morning Branch and 67.5 mL in the evening. metoprolol 3-0 Yes 12.5mg Take 0.5 [facility] tartrate 25 1-03 tablets by [facility] y of mg tablet 00:00: mouth [place] 00 needed Medical (afib). Branch nitroglycer 3-[address] 1 [facility] vers in 1-03 tablet ity of (NITROSTAT) 00:00: under the [place] 0.4 mg 00 tongue Medical sublingual every 5 Branch tablet (five) minutes as needed for Chest pain. bumetanide 3-0 Yes [id number] 4mg Take 2 [facility] 2 mg tablet 1-03 tablets by it y of 00:00: mouth in [place] 00 the Medical morning Branch and 2 tablets in the evening. KCL 20 2022-0 Yes [id number] 90meq Take 67.5 [facility] n[facility] mEq/15 mL 1-03 mL by ity of solution 00:00: mouth in [place] 00 the Medical morning Branch and 67.5 mL in the evening. metoprolol 2023-0 Yes 12.5mg Take 0.5 [facility] tartrate 25 1-03 tablets by [facility] y of mg tablet 00:00: mouth [place] 00 needed Medical (afib). Branch nitroglycer 2023-[address] 1 [facility] vers in 1-03 tablet ity of (NITROSTAT) 00:00: under the [place] 0.4 mg 00 tongue Medical sublingual every 5 Branch tablet (five) minutes as needed for Chest pain. bumetanide 3-0 Yes [id number] 4mg Take 2 [facility] 2 mg tablet 1-03 tablets by it y of 00:00: mouth in [place] 00 the Medical morning Branch and 2 tablets in the evening. KCL 20 2022-0 Yes [id number] 90meq Take 67.5 [facility] mEq/15 mL 1-03 mL by ity of solution 00:00: mouth in [place] 00 the Medical morning Branch and 67.5 mL in the evening. metoprolol 2022-0 Yes 12.5mg Take 0.5 [facility] tartrate 25 1-03 tablets by [facility] y of mg tablet 00:00: mouth [place] 00 needed Medical (afib). Branch nitroglycer 3-[address] 1 [facility] vers in 1-03 tablet ity of (NITROSTAT) 00:00: under the [place] 0.4 mg 00 tongue Medical sublingual every 5 Branch tablet (five) minutes as needed for Chest pain. bumetanide 2022-0 Yes [id number] 4mg Take 2 [facility] 2 mg tablet 1-03 tablets by it y of 00:00: mouth in [place] [address] the Medical morning Branch and 2 tablets in the evening. KCL 20 2022-0 Yes [id number] 90meq Take 67.5 [facility] n[facility] mEq/15 mL 1-03 mL by ity of solution 00:00: mouth in [place] [address] the Medical morning Branch and 67.5 mL in the evening. metoprolol 3-0 Yes 12.5mg Take 0.5 [facility] n[facility] tartrate 25 1-03 tablets by it y of mg tablet 00:00: mouth [place] 00 needed Medical (afib). Branch nitroglycer 3-[address] 1 [facility] vers in 1-03 tablet ity of (NITROSTAT) 00:00: under the [place] 0.4 mg 00 tongue Medical sublingual every 5 Branch tablet (five) minutes as needed for Chest pain. bumetanide 3-0 Yes [id number] 4mg Take 2 [facility] 2 mg tablet 1-03 tablets by it y of 00:00: mouth in [place] [address] the Medical morning Branch and 2 tablets in the evening. KCL 20 2022-0 Yes [id number] 90meq Take 67.5 U nivers mEq/15 mL 1-03 mL by ity of solution 00:00: mouth in [place] 00 the Medical morning Branch and 67.5 mL in the evening. metoprolol 3-0 Yes 12.5mg Take 0.5 [facility] n[facility] tartrate 25 1-03 tablets by it y of mg tablet 00:00: mouth [place] 00 needed Medical (afib). Branch nitroglycer 3-[address] 1 [facility] vers in 1-03 tablet ity of (NITROSTAT) 00:00: under the [place] 0.4 mg 00 tongue Medical sublingual every 5 Branch tablet (five) minutes as needed for Chest pain. bumetanide 2022-0 Yes [id number] 4mg Take 2 [facility] 2 mg tablet 1-03 tablets by it y of 00:00: mouth in [place] 00 the Medical morning Branch and 2 tablets in the evening. KCL 20 2022-0 Yes [id number] 90meq Take 67.5 [facility] n[facility] mEq/15 mL 1-03 mL by ity of solution 00:00: mouth in [place] 00 the Medical morning Branch and 67.5 mL in the evening. metoprolol 2022-0 Yes 12.5mg Take 0.5 [facility] n[facility] tartrate 25 1-03 tablets by it y of mg tablet 00:00: mouth [place] 00 needed Medical (afib). Branch nitroglycer 3-[address] 1 [facility] vers in 1-03 tablet ity of (NITROSTAT) 00:00: under the [place] 0.4 mg 00 tongue Medical sublingual every 5 Branch tablet (five) minutes as needed for Chest pain. bumetanide 3-0 Yes [id number] 4mg Take 2 [facility] 2 mg tablet 1-03 tablets by it y of 00:00: mouth in [place] 00 the Medical morning Branch and 2 tablets in the evening. KCL 20 2022-0 Yes [id number] 90meq Take 67.5 [facility] nivers mEq/15 mL 1-03 mL by ity of solution 00:00: mouth in [place] 00 the Medical morning Branch and 67.5 mL in the evening. metoprolol 2023-0 Yes 12.5mg Take 0.5 [facility] n[facility] tartrate 25 1-03 tablets by it y of mg tablet 00:00: mouth [place] 00 needed Medical (afib). Branch nitroglycer 2023-[address] 1 [facility] vers in 1-03 tablet ity of (NITROSTAT) 00:00: under the [place] 0.4 mg 00 tongue Medical sublingual every 5 Branch tablet (five) minutes as needed for Chest pain. bumetanide 2023-0 Yes [id number] 4mg Take 2 [facility] 2 mg tablet 1-03 tablets by it y of 00:00: mouth in [place] [address] the Medical morning Branch and 2 tablets in the evening. KCL 20 2022-0 Yes [id number] 90meq Take 67.5 [facility] nivers mEq/15 mL 1-03 mL by ity of solution 00:00: mouth in [place] 00 the Medical morning Branch and 67.5 mL in the evening. metoprolol 2023-0 Yes 12.5mg Take 0.5 [facility] n[facility] tartrate 25 1-03 tablets by it y of mg tablet 00:00: mouth [place] 00 needed Medical (afib). Branch nitroglycer 2023-[address] 1 [facility] vers in 1-03 tablet ity of (NITROSTAT) 00:00: under the [place] 0.4 mg 00 tongue Medical sublingual every 5 Branch tablet (five) minutes as needed for Chest pain. bumetanide 2023-0 Yes [id number] 4mg Take 2 [facility] 2 mg tablet 1-03 tablets by it y of 00:00: mouth in [place] [address] the Medical morning Branch and 2 tablets in the evening. KCL 20 2022-0 Yes [id number] 90meq Take 67.5 [facility] nivers mEq/15 mL 1-03 mL by ity of solution 00:00: mouth in [place] [address] the Medical morning Branch and 67.5 mL in the evening. metoprolol 2023-0 Yes 12.5mg Take 0.5 [facility] nivers tartrate 25 1-03 tablets by it y of mg tablet 00:00: mouth as [place] 00 needed Medical (afib). Branch nitroglycer 2023-[address] 1 [facility] vers in 1-03 tablet ity of (NITROSTAT) 00:00: under the [place] 0.4 mg 00 tongue Medical sublingual every 5 Branch tablet (five) minutes as needed for Chest pain. bumetanide 3-0 Yes [id number] 4mg Take 2 [facility] 2 mg tablet 1-03 tablets by it y of 00:00: mouth in [place] 00 the Medical morning Branch and 2 tablets in the evening. KCL 20 2022-0 Yes [id number] 90meq Take 67.5 [facility] n[facility] mEq/15 mL 1-03 mL by ity of solution 00:00: mouth in [place] 00 the Medical morning Branch and 67.5 mL in the evening. metoprolol 3-0 Yes 12.5mg Take 0.5 [facility] nivers tartrate 25 1-03 tablets by it y of mg tablet 00:00: mouth as [place] 00 needed Medical (afib). Branch nitroglycer 2022-[address] 1 [facility] vers in 1-03 tablet ity of (NITROSTAT) 00:00: under the [place] 0.4 mg 00 tongue Medical sublingual every 5 Branch tablet (five) minutes as needed for Chest pain. bumetanide 2022-0 Yes [id number] 4mg Take 2 [facility] 2 mg tablet 1-03 tablets by it y of 00:00: mouth in [place] [address] the Medical morning Branch and 2 tablets in the evening. KCL 20 2022-0 Yes [id number] 90meq Take 67.5 [facility] nivers mEq/15 mL 1-03 mL by ity of solution 00:00: mouth in [place] 00 the Medical morning Branch and 67.5 mL in the evening. metoprolol 3-0 Yes 12.5mg Take 0.5 [facility] n[facility] tartrate 25 1-03 tablets by [facility] y of mg tablet 00:00: mouth as [place] 00 needed Medical (afib). Branch nitroglycer 3-[address] 1 [facility] vers in 1-03 tablet ity of (NITROSTAT) 00:00: under the [place] 0.4 mg 00 tongue Medical sublingual every 5 Branch tablet (five) minutes as needed for Chest pain. bumetanide 2023-0 Yes [id number] 4mg Take 2 [facility] 2 mg tablet 1-03 tablets by it y of 00:00: mouth in [place] 00 the Medical morning Branch and 2 tablets in the evening. KCL 20 2022-0 Yes [id number] 90meq Take 67.5 [facility] nivers mEq/15 mL 1-03 mL by ity of solution 00:00: mouth in [place] 00 the Medical morning Branch and 67.5 mL in the evening. metoprolol 3-0 Yes 12.5mg Take 0.5 [facility] n[facility] tartrate 25 1-03 tablets by it y of mg tablet 00:00: mouth [place] 00 needed Medical (afib). Branch nitroglycer 2022-[address] 1 [facility] vers in 1-03 tablet ity of (NITROSTAT) 00:00: under the [place] 0.4 mg 00 tongue Medical sublingual every 5 Branch tablet (five) minutes as needed for Chest pain. bumetanide 2022-0 Yes [id number] 4mg Take 2 [facility] 2 mg tablet 1-03 tablets by it y of 00:00: mouth in [place] [address] the Medical morning Branch and 2 tablets in the evening. KCL 20 2022-0 Yes [id number] 90meq Take 67.5 [facility] nivers mEq/15 mL 1-03 mL by ity of solution 00:00: mouth in [place] [address] the Medical morning Branch and 67.5 mL in the evening. metoprolol 2022-0 Yes 12.5mg Take 0.5 [facility] nivers tartrate 25 1-03 tablets by [facility] y of mg tablet 00:00: mouth [place] 00 needed Medical (afib). Branch nitroglycer 3-[address] 1 [facility] vers in 1-03 tablet ity of (NITROSTAT) 00:00: under the [place] 0.4 mg 00 tongue Medical sublingual every 5 Branch tablet (five) minutes as needed for Chest pain. bumetanide 3-0 Yes [id number] 4mg Take 2 [facility] 2 mg tablet 1-03 tablets by it y of 00:00: mouth in [place] [address] the Medical morning Branch and 2 tablets in the evening. KCL 20 2022-0 Yes [id number] 90meq Take 67.5 [facility] nivers mEq/15 mL 1-03 mL by ity of solution 00:00: mouth in [place] [address] the Medical morning Branch and 67.5 mL in the evening. metoprolol 3-0 Yes 12.5mg Take 0.5 [facility] nivers tartrate 25 1-03 tablets by [facility] y of mg tablet 00:00: mouth [place] 00 needed Medical (afib). Branch nitroglycer 2023-[address] 1 [facility] vers in 1-03 tablet ity of (NITROSTAT) 00:00: under the [place] 0.4 mg 00 tongue Medical sublingual every 5 Branch tablet (five) minutes as needed for Chest pain. bumetanide 2023-0 Yes [id number] 4mg Take 2 [facility] 2 mg tablet 1-03 tablets by it y of 00:00: mouth in [place] 00 the Medical morning Branch and 2 tablets in the evening. KCL 20 2022-0 Yes [id number] 90meq Take 67.5 [facility] nivers mEq/15 mL 1-03 mL by ity of solution 00:00: mouth in [place] 00 the Medical morning Branch and 67.5 mL in the evening. metoprolol 2023-0 Yes 12.5mg Take 0.5 [facility] n[facility] tartrate 25 1-03 tablets by [facility] y of mg tablet 00:00: mouth [place] 00 needed Medical (afib). Branch nitroglycer 2023-[address] 1 [facility] vers in 1-03 tablet ity of (NITROSTAT) 00:00: under the [place] 0.4 mg 00 tongue Medical sublingual every 5 Branch tablet (five) minutes as needed for Chest pain. bumetanide 2023-0 Yes [id number] 4mg Take 2 [facility] 2 mg tablet 1-03 tablets by it y of 00:00: mouth in [place] [address] the Medical morning Branch and 2 tablets in the evening. KCL 20 2022-0 Yes [id number] 90meq Take 67.5 U nivers mEq/15 mL 1-03 mL by ity of solution 00:00: mouth in [place] [address] the Medical morning Branch and 67.5 mL in the evening. metoprolol 2023-0 Yes 12.5mg Take 0.5 [facility] nivers tartrate 25 1-03 tablets by [facility] y of mg tablet 00:00: mouth [place] 00 needed Medical (afib). Branch nitroglycer 2023-[address] 1 [facility] vers in 1-03 tablet ity of (NITROSTAT) 00:00: under the [place] 0.4 mg 00 tongue Medical sublingual every 5 Branch tablet (five) minutes as needed for Chest pain. bumetanide 2023-0 Yes [id number] 4mg Take 2 [facility] 2 mg tablet 1-03 tablets by it y of 00:00: mouth in [place] 00 the Medical morning Branch and 2 tablets in the evening. KCL 20 2022-0 Yes [id number] 90meq Take 67.5 U nivers mEq/15 mL 1-03 mL by ity of solution 00:00: mouth in [place] 00 the Medical morning Branch and 67.5 mL in the evening. metoprolol 2022-0 Yes 12.5mg Take 0.5 [facility] n[facility] tartrate 25 1-03 tablets by [facility] of mg tablet 00:00: mouth [place] 00 needed Medical (afib). Branch nitroglycer 2022-[address] 1 [facility] vers in 1-03 tablet ity of (NITROSTAT) 00:00: under the [place] 0.4 mg 00 tongue Medical sublingual every 5 Branch tablet (five) minutes as needed for Chest pain. bumetanide 2022-0 Yes [id number] 4mg Take 2 [facility] 2 mg tablet 1-03 tablets by it y of 00:00: mouth in [place] [address] the Medical morning Branch and 2 tablets in the evening. KCL 20 2022-0 Yes [id number] 90meq Take 67.5 [facility] n[facility] mEq/15 mL 1-03 mL by ity of solution 00:00: mouth in [place] [address] the Medical morning Branch and 67.5 mL in the evening. metoprolol 2022-0 Yes 12.5mg Take 0.5 [facility] nivers tartrate 25 1-03 tablets by [facility] y of mg tablet 00:00: mouth [place] 00 needed Medical (afib). Branch nitroglycer 2022-[address] 1 [facility] vers in 1-03 tablet ity of (NITROSTAT) 00:00: under the [place] 0.4 mg 00 tongue Medical sublingual every 5 Branch tablet (five) minutes as needed for Chest pain. bumetanide 3-0 Yes [id number] 4mg Take 2 [facility] 2 mg tablet 1-03 tablets by it y of 00:00: mouth in [place] [address] the Medical morning Branch and 2 tablets in the evening. KCL 20 2022-0 Yes [id number] 90meq Take 67.5 [facility] nivers mEq/15 mL 1-03 mL by ity of solution 00:00: mouth in [place] 00 the Medical morning Branch and 67.5 mL in the evening. metoprolol 2023-0 Yes 12.5mg Take 0.5 [facility] nivers tartrate 25 1-03 tablets by [facility] y of mg tablet 00:00: mouth [place] 00 needed Medical (afib). Branch nitroglycer 2023-[address] 1 [facility] vers in 1-03 tablet ity of (NITROSTAT) 00:00: under the [place] 0.4 mg 00 tongue Medical sublingual every 5 Branch tablet (five) minutes as needed for Chest pain. bumetanide 2023-0 Yes [id number] 4mg Take 2 [facility] 2 mg tablet 1-03 tablets by it y of 00:00: mouth in [place] 00 the Medical morning Branch and 2 tablets in the evening. KCL 20 2022-0 Yes [id number] 90meq Take 67.5 [facility] nivers mEq/15 mL 1-03 mL by ity of solution 00:00: mouth in [place] 00 the Medical morning Branch and 67.5 mL in the evening. metoprolol 2023-0 Yes 12.5mg Take 0.5 [facility] n[facility] tartrate 25 1-03 tablets by [facility] y of mg tablet 00:00: mouth [place] 00 needed Medical (afib). Branch nitroglycer 2023-[address] 1 [facility] vers in -03 tablet ity of (NITROSTAT) 00:00: under the [place] 0.4 mg 00 tongue Medical sublingual every 5 Branch tablet (five) minutes as needed for Chest pain. bumetanide 2023-0 Yes [id number] 4mg Take 2 [facility] 2 mg tablet 1-03 tablets by it y of 00:00: mouth in [place] [address] the Medical morning Branch and 2 tablets in the evening. KCL 20 3-0 Yes [id number] 90meq Take 67.5 [facility] nivers mEq/15 mL 1-03 mL by ity of solution 00:00: mouth in [place] [address] the Medical morning Branch and 67.5 mL in the evening. metoprolol 2023-0 Yes 12.5mg Take 0.5 [facility] nivers tartrate 25 1-03 tablets by [facility] y of mg tablet 00:00: mouth [place] 00 needed Medical (afib). Branch nitroglycer 2023-[address] 1 [facility] vers in 1-03 tablet ity of (NITROSTAT) 00:00: under the [place] 0.4 mg 00 tongue Medical sublingual every 5 Branch tablet (five) minutes as needed for Chest pain. bumetanide 3-0 Yes [id number] 4mg Take 2 [facility] 2 mg tablet 1-03 tablets by it y of 00:00: mouth in [place] 00 the Medical morning Branch and 2 tablets in the evening. KCL 20 2022-0 Yes [id number] 90meq Take 67.5 U nivers mEq/15 mL 1-03 mL by ity of solution 00:00: mouth in [place] 00 the Medical morning Branch and 67.5 mL in the evening. metoprolol 3-0 Yes 12.5mg Take 0.5 [facility] nivers tartrate 25 1-03 tablets by [facility] y of mg tablet 00:00: mouth as [place] 00 needed Medical (afib). Branch nitroglycer 3-[address] 1 [facility] vers in 1-03 tablet ity of (NITROSTAT) 00:00: under the [place] 0.4 mg 00 tongue Medical sublingual every 5 Branch tablet (five) minutes as needed for Chest pain. bumetanide 2022-0 Yes [id number] 4mg Take 2 [facility] 2 mg tablet 1-03 tablets by it y of 00:00: mouth in [place] [address] the Medical morning Branch and 2 tablets in the evening. KCL 20 2022-0 Yes [id number] 90meq Take 67.5 U nivers mEq/15 mL 1-03 mL by ity of solution 00:00: mouth in [place] 00 the Medical morning Branch and 67.5 mL in the evening. metoprolol 3-0 Yes 12.5mg Take 0.5 U nivers tartrate 25 1-03 tablets by [facility] y of mg tablet 00:00: mouth as [place] 00 needed Medical (afib). Branch nitroglycer 2023-[address] 1 [facility] vers in 1-03 tablet ity of (NITROSTAT) 00:00: under the [place] 0.4 mg 00 tongue Medical sublingual every 5 Branch tablet (five) minutes as needed for Chest pain. bumetanide 3-0 Yes [id number] 4mg Take 2 [facility] 2 mg tablet 1-03 tablets by it y of 00:00: mouth in [place] 00 the Medical morning Branch and 2 tablets in the evening. KCL 20 2022-0 Yes [id number] 90meq Take 67.5 U nivers mEq/15 mL 1-03 mL by ity of solution 00:00: mouth in [place] 00 the Medical morning Branch and 67.5 mL in the evening. metoprolol 3-0 Yes 12.5mg Take 0.5 U nivers tartrate 25 1-03 tablets by [facility] y of mg tablet 00:00: mouth [place] 00 needed Medical (afib). Branch nitroglycer 3-[address] 1 [facility] vers in 1-03 tablet ity of (NITROSTAT) 00:00: under the [place] 0.4 mg 00 tongue Medical sublingual every 5 Branch tablet (five) minutes as needed for Chest pain. bumetanide 2022-0 Yes [id number] 4mg Take 2 [facility] 2 mg tablet 1-03 tablets by it y of 00:00: mouth in [place] [address] the Medical morning Branch and 2 tablets in the evening. KCL 20 2022-0 Yes [id number] 90meq Take 67.5 U nivers mEq/15 mL 1-03 mL by ity of solution 00:00: mouth in [place] [address] the Medical morning Branch and 67.5 mL in the evening. metoprolol 3-0 Yes 12.5mg Take 0.5 U nivers tartrate 25 1-03 tablets by [facility] y of mg tablet 00:00: mouth [place] needed Medical (afib). Branch nitroglycer 2023-[address] 1 [facility] vers in 1-03 tablet ity of (NITROSTAT) 00:00: under the [place] 0.4 mg 00 tongue Medical sublingual every 5 Branch tablet (five) minutes as needed for Chest pain. bumetanide 2023-0 Yes [id number] 4mg Take 2 [facility] 2 mg tablet 1-03 tablets by it y of 00:00: mouth in [place] [address] the Medical morning Branch and 2 tablets in the evening. KCL 20 2022-0 Yes [id number] 90meq Take 67.5 U nivers mEq/15 mL 1-03 mL by ity of solution 00:00: mouth in [place] [address] the Medical morning Branch and 67.5 mL in the evening. metoprolol 2023-0 Yes 12.5mg Take 0.5 U nivers tartrate 25 1-03 tablets by [facility] of mg tablet 00:00: mouth [place] needed Medical (afib). Branch nitroglycer 3-[address] 1 [facility] vers in 1-03 tablet ity of (NITROSTAT) 00:00: under the [place] 0.4 mg 00 tongue Medical sublingual every 5 Branch tablet (five) minutes as needed for Chest pain. bumetanide 2023-0 Yes [id number] 4mg Take 2 [facility] 2 mg tablet 1-03 tablets by it y of 00:00: mouth in [place] 00 the Medical morning Branch and 2 tablets in the evening. KCL 20 2022-0 Yes [id number] 90meq Take 67.5 [facility] mEq/15 mL 1-03 mL by ity of solution 00:00: mouth in [place] 00 the Medical morning Branch and 67.5 mL in the evening. metoprolol 3-0 Yes 12.5mg Take 0.5 [facility] tartrate 25 1-03 tablets by it y of mg tablet 00:00: mouth [place] 00 needed Medical (afib). Branch nitroglycer 3-[address] 1 [facility] vers in 1-03 tablet ity of (NITROSTAT) 00:00: under the [place] 0.4 mg 00 tongue Medical sublingual every 5 Branch tablet (five) minutes as needed for Chest pain. bumetanide 3-0 Yes [id number] 4mg Take 2 [facility] 2 mg tablet 1-03 tablets by it y of 00:00: mouth in [place] 00 the Medical morning Branch and 2 tablets in the evening. KCL 20 2022-0 Yes [id number] 90meq Take 67.5 [facility] mEq/15 mL 1-03 mL by ity of solution 00:00: mouth in [place] 00 the Medical morning Branch and 67.5 mL in the evening. metoprolol 2023-0 Yes 12.5mg Take 0.5 [facility] tartrate 25 1-03 tablets by it y of mg tablet 00:00: mouth [place] 00 needed Medical (afib). Branch nitroglycer 2023-[address] 1 [facility] vers in 1-03 tablet ity of (NITROSTAT) 00:00: under the [place] 0.4 mg 00 tongue Medical sublingual every 5 Branch tablet (five) minutes as needed for Chest pain. bumetanide 2022-0 Yes [id number] 4mg Take 2 [facility] 2 mg tablet 1-03 tablets by it y of 00:00: mouth in [place] 00 the Medical morning Branch and 2 tablets in the evening. KCL 20 2022-0 Yes [id number] 90meq Take 67.5 [facility] n[facility] mEq/15 mL 1-03 mL by ity of solution 00:00: mouth in [place] 00 the Medical morning Branch and 67.5 mL in the evening. metoprolol 2022-0 Yes 12.5mg Take 0.5 [facility] tartrate 25 1-03 tablets by it y of mg tablet 00:00: mouth [place] 00 needed Medical (afib). Branch nitroglycer 2022-[address] 1 [facility] vers in 1-03 tablet ity of (NITROSTAT) 00:00: under the [place] 0.4 mg 00 tongue Medical sublingual every 5 Branch tablet (five) minutes as needed for Chest pain. bumetanide 2022-0 Yes [id number] 4mg Take 2 [facility] 2 mg tablet 1-03 tablets by it y of 00:00: mouth in [place] 00 the Medical morning Branch and 2 tablets in the evening. KCL 20 2022-0 Yes [id number] 90meq Take 67.5 [facility] mEq/15 mL 1-03 mL by ity of solution 00:00: mouth in [place] 00 the Medical morning Branch and 67.5 mL in the evening. metoprolol 2022-0 Yes 12.5mg Take 0.5 [facility] tartrate 25 1-03 tablets by it y of mg tablet 00:00: mouth [place] 00 needed Medical (afib). Branch nitroglycer 2022-[address] 1 [facility] vers in 1-03 tablet ity of (NITROSTAT) 00:00: under the [place] 0.4 mg 00 tongue Medical sublingual every 5 Branch tablet (five) minutes as needed for Chest pain. clonazePAM 2022-0 3- No [id number] Take 1 [facility] 1 mg tablet 1-03 - pill PO in i ty of 00:00: 00:00 the AM, 1 [place] 00 :00 PO in the Medical afternoon, Branch 1 pill PO in the evening. October take additional 1/2 pill as needed for acute anxiety. clonazePAM 2023-0 2022- No [id number] Take 1 [facility] 1 mg tablet 06-25 pill PO in i ty of 00:00: 00:00 the AM, 1 [place] 00 :00 PO in the Medical afternoon, Branch 1 pill PO in the evening. May take additional 1/2 pill as needed for acute anxiety. clonazePAM 202-0 2022- No [id number] Take 1 [facility] 1 mg tablet 06-25 pill PO in i ty of 00:00: 00:00 the AM, 1 [place] 00 :00 PO in the Medical afternoon, Branch 1 pill PO in the evening. May take additional 1/2 pill as needed for acute anxiety. clonazePAM 2022-0 2022- No [id number] Take 1 [facility] 1 mg tablet 06-25 pill PO in i ty of 00:00: 00:00 the AM, 1 [place] 00 :00 PO in the Medical afternoon, Branch 1 pill PO in the evening. May take additional 1/2 pill as needed for acute anxiety. clonazePAM 2022-0 2022- No [id number] Take 1 [facility] 1 mg tablet 06-25 pill PO in i ty of 00:00: 00:00 the AM, 1 [place] 00 :00 PO in the Medical afternoon, Branch 1 pill PO in the evening. May take additional 1/2 pill as needed for acute anxiety. clonazePAM 2022-0 2022- No [id number] Take 1 [facility] 1 mg tablet 06-25 pill PO in i ty of 00:00: 00:00 the AM, 1 [place] 00 :00 PO in the Medical afternoon, Branch 1 pill PO in the evening. May take additional 1/2 pill as needed for acute anxiety. clonazePAM 2022-0 2022- No [id number] Take 1 [facility] 1 mg tablet 06-25 pill PO in i ty of 00:00: 00:00 the AM, 1 [place] 00 :00 PO in the Medical afternoon, Branch 1 pill PO in the evening. May take additional 1/2 pill as needed for acute anxiety. rivaroxaban 2021-06 Yes 1291 20mg Take 1 [facility] ers (XARELTO) 2-29 tablet by [facility] o f 20 mg 00:00: mouth in [place] tablet 00 the Medical morning. Branch Indication s: a clot in the lung diltiazem 2021-06 Yes [id number] 120mg Take 1 [facility] XR 120 mg 2-29 capsule by ity of 24 hr 00:00: mouth in [place] capsule 00 the Medical morning. Branch isosorbide 2021-06 Yes [id number] 30mg Take 0.5 [facility] mononitrate 2-29 tablets by it y of 60 mg 24 hr 00:00: mouth in [place] tablet 00 the Medical morning. Branch bumetanide 2021-06 Yes [id number] 2mg Take 1 [facility] 2 mg tablet 2-29 tablet by ity of 00:00: mouth [place] 00 every Medical morning Branch and evening. aspirin 325 2021-06 Yes [id number] 325mg Take 1 [facility] mg tablet 2-29 tablet by ity o f 00:00: mouth in [place] 00 the Medical morning. Branch rivaroxaban 2021-06 Yes 1291 20mg Take 1 [facility] ers (XARELTO) 2-29 tablet by ity o f 20 mg 00:00: mouth in [place] tablet 00 the Medical morning. Branch Indication s: a clot in the lung diltiazem 2021-06 Yes [id number] 120mg Take 1 [facility] XR 120 mg 2-29 capsule by ity of 24 hr 00:00: mouth in [place] capsule 00 the Medical morning. Branch isosorbide 2021-06 Yes [id number] 30mg Take 0.5 [facility] mononitrate 2-29 tablets by it y of 60 mg 24 hr 00:00: mouth in [place] tablet 00 the Medical morning. Branch bumetanide 2021-06 Yes [id number] 2mg Take 1 [facility] 2 mg tablet 2-29 tablet by ity of 00:00: mouth [place] 00 every Medical morning Branch and evening. aspirin 325 2021-06 Yes [id number] 325mg Take 1 [facility] mg tablet 2-29 tablet by ity o f 00:00: mouth in [place] 00 the Medical morning. Branch rivaroxaban 2021-06 Yes 1291 20mg Take 1 [facility] ers (XARELTO) 2-29 tablet by ity o f 20 mg 00:00: mouth in [place] tablet 00 the Medical morning. Branch Indication s: a clot in the lung diltiazem 2021-06 Yes [id number] 120mg Take 1 [facility] XR 120 mg 2-29 capsule by ity of 24 hr 00:00: mouth in [place] capsule 00 the Medical morning. Branch isosorbide 2021-06 Yes [id number] 30mg Take 0.5 [facility] mononitrate 2-29 tablets by it y of 60 mg 24 hr 00:00: mouth in [place] tablet 00 the Medical morning. Branch bumetanide 2021-06 Yes [id number] 2mg Take 1 [facility] 2 mg tablet 2-29 tablet by ity of 00:00: mouth [place] 00 every Medical morning Branch and evening. aspirin 325 2021-06 Yes [id number] 325mg Take 1 [facility] mg tablet 2-29 tablet by ity o f 00:00: mouth in [place] 00 the Medical morning. Branch rivaroxaban 2021-06 Yes 1291 20mg Take 1 [facility] ers (XARELTO) 2-29 tablet by ity o f 20 mg 00:00: mouth in [place] tablet 00 the Medical morning. Branch Indication s: a clot in the lung diltiazem 2021-06 Yes [id number] 120mg Take 1 [facility] XR 120 mg 2-29 capsule by ity of 24 hr 00:00: mouth in [place] capsule 00 the Medical morning. Branch isosorbide 2021-06 Yes [id number] 30mg Take 0.5 [facility] mononitrate 2-29 tablets by it y of 60 mg 24 hr 00:00: mouth in [place] tablet 00 the Medical morning. Branch bumetanide 2021-06 Yes [id number] 2mg Take 1 [facility] 2 mg tablet 2-29 tablet by ity of 00:00: mouth [place] 00 every Medical morning Branch and evening. aspirin 325 2021-06 Yes [id number] 325mg Take 1 [facility] mg tablet 2-29 tablet by ity o f 00:00: mouth in [place] 00 the Medical morning. Branch rivaroxaban 2021-06 Yes 1291 20mg Take 1 [facility] ers (XARELTO) 2-29 tablet by ity o f 20 mg 00:00: mouth in [place] tablet 00 the Medical morning. Branch Indication s: a clot in the lung diltiazem 2021-06 Yes [id number] 120mg Take 1 [facility] XR 120 mg 2-29 capsule by ity of 24 hr 00:00: mouth in [place] capsule 00 the Medical morning. Branch isosorbide 2021-06 Yes [id number] 30mg Take 0.5 [facility] mononitrate 2-29 tablets by it y of 60 mg 24 hr 00:00: mouth in [place] tablet 00 the Medical morning. Branch bumetanide 2021-06 Yes [id number] 2mg Take 1 [facility] 2 mg tablet 2-29 tablet by ity of 00:00: mouth [place] 00 every Medical morning Branch and evening. aspirin 325 2021-06 Yes [id number] 325mg Take 1 [facility] mg tablet 2-29 tablet by ity o f 00:00: mouth in [place] 00 the Medical morning. Branch rivaroxaban 2021-06 Yes 1291 20mg Take 1 [facility] ers (XARELTO) 2-29 tablet by ity o f 20 mg 00:00: mouth in [place] tablet 00 the Medical morning. Branch Indication s: a clot in the lung diltiazem 2021-06 Yes [id number] 120mg Take 1 [facility] XR 120 mg 2-29 capsule by ity of 24 hr 00:00: mouth in [place] capsule 00 the Medical morning. Branch isosorbide 2021-06 Yes [id number] 30mg Take 0.5 [facility] mononitrate 2-29 tablets by it y of 60 mg 24 hr 00:00: mouth in [place] tablet 00 the Medical morning. Branch bumetanide 2021-06 Yes [id number] 2mg Take 1 [facility] 2 mg tablet 2-29 tablet by ity of 00:00: mouth [place] 00 every Medical morning Branch and evening. aspirin 325 2021-06 Yes [id number] 325mg Take 1 [facility] mg tablet 2-29 tablet by ity o f 00:00: mouth in [place] 00 the Medical morning. Branch rivaroxaban 2021-06 Yes 1291 20mg Take 1 [facility] ers (XARELTO) 2-29 tablet by ity o f 20 mg 00:00: mouth in [place] tablet 00 the Medical morning. Branch Indication s: a clot in the lung diltiazem 2021-06 Yes [id number] 120mg Take 1 [facility] XR 120 mg 2-29 capsule by ity of 24 hr 00:00: mouth in [place] capsule 00 the Medical morning. Branch isosorbide 2021-06 Yes [id number] 30mg Take 0.5 [facility] mononitrate 2-29 tablets by it y of 60 mg 24 hr 00:00: mouth in [place] tablet 00 the Medical morning. Branch bumetanide 2021-06 Yes [id number] 2mg Take 1 [facility] 2 mg tablet 2-29 tablet by ity of 00:00: mouth [place] 00 every Medical morning Branch and evening. aspirin 325 2021-06 Yes [id number] 325mg Take 1 [facility] mg tablet 2-29 tablet by ity o f 00:00: mouth in [place] 00 the Medical morning. Branch rivaroxaban 2021-06 Yes 1291 20mg Take 1 [facility] ers (XARELTO) 2-29 tablet by ity o f 20 mg 00:00: mouth in [place] tablet 00 the Medical morning. Branch Indication s: a clot in the lung diltiazem 2021-06 Yes [id number] 120mg Take 1 [facility] XR 120 mg 2-29 capsule by ity of 24 hr 00:00: mouth in [place] capsule 00 the Medical morning. Branch isosorbide 2021-06 Yes [id number] 30mg Take 0.5 [facility] mononitrate 2-29 tablets by it y of 60 mg 24 hr 00:00: mouth in [place] tablet 00 the Medical morning. Branch rivaroxaban 2021-06 Yes 1291 20mg Take 1 [facility] ers (XARELTO) 2-29 tablet by ity o f 20 mg 00:00: mouth in [place] tablet 00 the Medical morning. Branch Indication s: a clot in the lung diltiazem 2021-06 Yes [id number] 120mg Take 1 [facility] XR 120 mg 2-29 capsule by ity of 24 hr 00:00: mouth in [place] capsule 00 the Medical morning. Branch isosorbide 2021-06 Yes [id number] 30mg Take 0.5 [facility] mononitrate 2-29 tablets by it y of 60 mg 24 hr 00:00: mouth in [place] tablet 00 the Medical morning. Branch rivaroxaban 2021-06 Yes 1291 20mg Take 1 [facility] ers (XARELTO) 2-29 tablet by ity o f 20 mg 00:00: mouth in [place] tablet 00 the Medical morning. Branch Indication s: a clot in the lung diltiazem 2021-06 Yes [id number] 120mg Take 1 [facility] XR 120 mg 2-29 capsule by ity of 24 hr 00:00: mouth in [place] capsule 00 the Medical morning. Branch isosorbide 2021-06 Yes [id number] 30mg Take 0.5 [facility] mononitrate 2-29 tablets by it y of 60 mg 24 hr 00:00: mouth in [place] tablet 00 the Medical morning. Branch rivaroxaban 2021-06 Yes 1291 20mg Take 1 [facility] ers (XARELTO) 2-29 tablet by ity o f 20 mg 00:00: mouth in [place] tablet 00 the Medical morning. Branch Indication s: a clot in the lung diltiazem 2021-06 Yes [id number] 120mg Take 1 [facility] XR 120 mg 2-29 capsule by ity of 24 hr 00:00: mouth in [place] capsule 00 the Medical morning. Branch isosorbide 2021-06 Yes [id number] 30mg Take 0.5 [facility] mononitrate 2-29 tablets by it y of 60 mg 24 hr 00:00: mouth in [place] tablet 00 the Medical morning. Branch rivaroxaban 2021-06 Yes 1291 20mg Take 1 [facility] ers (XARELTO) 2-29 tablet by ity o f 20 mg 00:00: mouth in [place] tablet 00 the Medical morning. Branch Indication s: a clot in the lung diltiazem 2021-06 Yes [id number] 120mg Take 1 [facility] XR 120 mg 2-29 capsule by ity of 24 hr 00:00: mouth in [place] capsule 00 the Medical morning. Branch isosorbide 2021-06 Yes [id number] 30mg Take 0.5 [facility] mononitrate 2-29 tablets by it y of 60 mg 24 hr 00:00: mouth in [place] tablet 00 the Medical morning. Branch rivaroxaban 2021-06 Yes 1291 20mg Take 1 [facility] ers (XARELTO) 2-29 tablet by ity o f 20 mg 00:00: mouth in [place] tablet 00 the Medical morning. Branch Indication s: a clot in the lung diltiazem 2021-06 Yes [id number] 120mg Take 1 [facility] XR 120 mg 2-29 capsule by ity of 24 hr 00:00: mouth in [place] capsule 00 the Medical morning. Branch isosorbide 2021-06 Yes [id number] 30mg Take 0.5 [facility] mononitrate 2-29 tablets by it y of 60 mg 24 hr 00:00: mouth in [place] tablet 00 the Medical morning. Branch rivaroxaban 2021-06 Yes 1291 20mg Take 1 [facility] ers (XARELTO) 2-29 tablet by ity o f 20 mg 00:00: mouth in [place] tablet 00 the Medical morning. Branch Indication s: a clot in the lung diltiazem 2021-06 Yes [id number] 120mg Take 1 [facility] XR 120 mg 2-29 capsule by ity of 24 hr 00:00: mouth in [place] capsule 00 the Medical morning. Branch isosorbide 2021-06 Yes [id number] 30mg Take 0.5 [facility] mononitrate 2-29 tablets by it y of 60 mg 24 hr 00:00: mouth in [place] tablet 00 the Medical morning. Branch rivaroxaban 2021-06 Yes 1291 20mg Take 1 [facility] ers (XARELTO) 2-29 tablet by ity o f 20 mg 00:00: mouth in [place] tablet 00 the Medical morning. Branch Indication s: a clot in the lung diltiazem 2021-06 Yes [id number] 120mg Take 1 [facility] XR 120 mg 2-29 capsule by ity of 24 hr 00:00: mouth in [place] capsule 00 the Medical morning. Branch isosorbide 2021-06 Yes [id number] 30mg Take 0.5 [facility] mononitrate 2-29 tablets by it y of 60 mg 24 hr 00:00: mouth in [place] tablet 00 the Medical morning. Branch rivaroxaban 2021-06 Yes 1291 20mg Take 1 [facility] ers (XARELTO) 2-29 tablet by ity o f 20 mg 00:00: mouth in [place] tablet 00 the Medical morning. Branch Indication s: a clot in the lung diltiazem 2021-06 Yes [id number] 120mg Take 1 [facility] XR 120 mg 2-29 capsule by ity of 24 hr 00:00: mouth in [place] capsule 00 the Medical morning. Branch isosorbide 2021-06 Yes [id number] 30mg Take 0.5 [facility] mononitrate 2-29 tablets by it y of 60 mg 24 hr 00:00: mouth in [place] tablet 00 the Medical morning. Branch rivaroxaban 2021-06 Yes 1291 20mg Take 1 [facility] ers (XARELTO) 2-29 tablet by ity o f 20 mg 00:00: mouth in [place] tablet 00 the Medical morning. Branch Indication s: a clot in the lung diltiazem 2021-06 Yes [id number] 120mg Take 1 [facility] XR 120 mg 2-29 capsule by ity of 24 hr 00:00: mouth in [place] capsule 00 the Medical morning. Branch isosorbide 2021-06 Yes [id number] 30mg Take 0.5 [facility] mononitrate 2-29 tablets by it y of 60 mg 24 hr 00:00: mouth in [place] tablet 00 the Medical morning. Branch rivaroxaban 2021-06 Yes 1291 20mg Take 1 [facility] ers (XARELTO) 2-29 tablet by ity o f 20 mg 00:00: mouth in [place] tablet 00 the Medical morning. Branch Indication s: a clot in the lung diltiazem 2021-06 Yes [id number] 120mg Take 1 [facility] XR 120 mg 2-29 capsule by ity of 24 hr 00:00: mouth in [place] capsule 00 the Medical morning. Branch isosorbide 2021-06 Yes [id number] 30mg Take 0.5 [facility] mononitrate 2-29 tablets by it y of 60 mg 24 hr 00:00: mouth in [place] tablet 00 the Medical morning. Branch rivaroxaban 2021-06 Yes 1291 20mg Take 1 [facility] ers (XARELTO) 2-29 tablet by ity o f 20 mg 00:00: mouth in [place] tablet 00 the Medical morning. Branch Indication s: a clot in the lung diltiazem 2021-06 Yes [id number] 120mg Take 1 [facility] XR 120 mg 2-29 capsule by ity of 24 hr 00:00: mouth in [place] capsule 00 the Medical morning. Branch isosorbide 2021-06 Yes [id number] 30mg Take 0.5 [facility] mononitrate 2-29 tablets by it y of 60 mg 24 hr 00:00: mouth in [place] tablet 00 the Medical morning. Branch rivaroxaban 2021-06 Yes 1291 20mg Take 1 [facility] ers (XARELTO) 2-29 tablet by ity o f 20 mg 00:00: mouth in [place] tablet 00 the Medical morning. Branch Indication s: a clot in the lung diltiazem 2021-06 Yes [id number] 120mg Take 1 [facility] XR 120 mg 2-29 capsule by ity of 24 hr 00:00: mouth in [place] capsule 00 the Medical morning. Branch isosorbide 2021-06 Yes [id number] 30mg Take 0.5 [facility] mononitrate 2-29 tablets by it y of 60 mg 24 hr 00:00: mouth in [place] tablet 00 the Medical morning. Branch rivaroxaban 2021-06 Yes 1291 20mg Take 1 [facility] ers (XARELTO) 2-29 tablet by ity o f 20 mg 00:00: mouth in [place] tablet 00 the Medical morning. Branch Indication s: a clot in the lung diltiazem 2021-06 Yes [id number] 120mg Take 1 [facility] XR 120 mg 2-29 capsule by ity of 24 hr 00:00: mouth in [place] capsule 00 the Medical morning. Branch isosorbide 2021-06 Yes [id number] 30mg Take 0.5 [facility] mononitrate 2-29 tablets by it y of 60 mg 24 hr 00:00: mouth in [place] tablet 00 the Medical morning. Branch rivaroxaban 2021-06 Yes 1291 20mg Take 1 [facility] ers (XARELTO) 2-29 tablet by ity o f 20 mg 00:00: mouth in [place] tablet 00 the Medical morning. Branch Indication s: a clot in the lung diltiazem 2021-06 Yes [id number] 120mg Take 1 [facility] XR 120 mg 2-29 capsule by [facility]y of 24 hr 00:00: mouth in [place] capsule 00 the Medical morning. Branch rivaroxaban 2021-06 Yes 1291 20mg Take 1 [facility] ers (XARELTO) 2-29 tablet by ity o f 20 mg 00:00: mouth in [place] tablet 00 the Medical morning. Branch Indication s: a clot in the lung diltiazem 2021-06 Yes [id number] 120mg Take 1 [facility] XR 120 mg 2-29 capsule by ity of 24 hr 00:00: mouth in [place] capsule 00 the Medical morning. Branch rivaroxaban 2021-06 Yes 1291 20mg Take 1 [facility] ers (XARELTO) 2-29 tablet by ity o f 20 mg 00:00: mouth in [place] tablet 00 the Medical morning. Branch Indication s: a clot in the lung diltiazem 2021-06 Yes [id number] 120mg Take 1 [facility] XR 120 mg 2-29 capsule by [facility] of 24 hr 00:00: mouth in [place] capsule 00 the Medical morning. Branch rivaroxaban 2021-06 Yes 1291 20mg Take 1 [facility] ers (XARELTO) 2-29 tablet by ity o f 20 mg 00:00: mouth in [place] tablet 00 the Medical morning. Branch Indication s: a clot in the lung diltiazem 2021-06 Yes [id number] 120mg Take 1 [facility] XR 120 mg 2-29 capsule by [facility] of 24 hr 00:00: mouth in [place] capsule 00 the Medical morning. Branch rivaroxaban 2021-06 Yes 1291 20mg Take 1 [facility] ers (XARELTO) 2-29 tablet by ity o f 20 mg 00:00: mouth in [place] tablet 00 the Medical morning. Branch Indication s: a clot in the lung diltiazem 2021-06 Yes [id number] 120mg Take 1 [facility] XR 120 mg 2-29 capsule by ity of 24 hr 00:00: mouth in [place] capsule 00 the Medical morning. Branch rivaroxaban 2021-06 Yes 1291 20mg Take 1 [facility] ers (XARELTO) 2-29 tablet by ity o f 20 mg 00:00: mouth in [place] tablet 00 the Medical morning. Branch Indication s: a clot in the lung diltiazem 2021-06 Yes [id number] 120mg Take 1 [facility] XR 120 mg 2-29 capsule by [facility] of 24 hr 00:00: mouth in [place] capsule 00 the Medical morning. Branch rivaroxaban 2021-06 Yes 1291 20mg Take 1 [facility] ers (XARELTO) 2-29 tablet by ity o f 20 mg 00:00: mouth in [place] tablet 00 the Medical morning. Branch Indication s: a clot in the lung diltiazem 2021-06 Yes [id number] 120mg Take 1 [facility] XR 120 mg 2-29 capsule by [facility] of 24 hr 00:00: mouth in [place] capsule 00 the Medical morning. Branch rivaroxaban 2021-06 Yes 1291 20mg Take 1 [facility] ers (XARELTO) 2-29 tablet by ity o f 20 mg 00:00: mouth in [place] tablet 00 the Medical morning. Branch Indication s: a clot in the lung diltiazem 2021-06 Yes [id number] 120mg Take 1 [facility] XR 120 mg 2-29 capsule by [facility] of 24 hr 00:00: mouth in [place] capsule 00 the Medical morning. Branch rivaroxaban 2021-06 Yes 1291 20mg Take 1 [facility] ers (XARELTO) 2-29 tablet by ity o f 20 mg 00:00: mouth in [place] tablet 00 the Medical morning. Branch Indication s: a clot in the lung diltiazem 2021-06 Yes [id number] 120mg Take 1 [facility] XR 120 mg 2-29 capsule by [facility]y of 24 hr 00:00: mouth in [place] capsule 00 the Medical morning. Branch rivaroxaban 2021-06 Yes 1291 20mg Take 1 [facility] ers (XARELTO) 2-29 tablet by ity o f 20 mg 00:00: mouth in [place] tablet 00 the Medical morning. Branch Indication s: a clot in the lung diltiazem 2021-06 Yes [id number] 120mg Take 1 [facility] XR 120 mg 2-29 capsule by [facility] of 24 hr 00:00: mouth in [place] capsule 00 the Medical morning. Branch rivaroxaban 2021-06 Yes 1291 20mg Take 1 [facility] ers (XARELTO) 2-29 tablet by ity o f 20 mg 00:00: mouth in [place] tablet 00 the Medical morning. Branch Indication s: a clot in the lung diltiazem 2021-06 Yes [id number] 120mg Take 1 [facility] XR 120 mg 2-29 capsule by [facility] of 24 hr 00:00: mouth in [place] capsule 00 the Medical morning. Branch rivaroxaban 2021-06 Yes 1291 20mg Take 1 [facility] ers (XARELTO) 2-29 tablet by ity o f 20 mg 00:00: mouth in [place] tablet 00 the Medical morning. Branch Indication s: a clot in the lung diltiazem 2021-06 Yes [id number] 120mg Take 1 [facility] XR 120 mg 2-29 capsule by [facility] of 24 hr 00:00: mouth in [place] capsule 00 the Medical morning. Branch rivaroxaban 2021-06 Yes 1291 20mg Take 1 [facility] (XARELTO) 2-29 tablet by ity o f 20 mg 00:00: mouth in [place] tablet 00 the Medical morning. Branch Indication s: a clot in the lung diltiazem 2021-06 Yes [id number] 120mg Take 1 [facility] XR 120 mg 2-29 capsule by [facility] of 24 hr 00:00: mouth in [place] capsule 00 the Medical morning. Branch rivaroxaban 2021-06 Yes 1291 20mg Take 1 [facility] ers (XARELTO) 2-29 tablet by ity o f 20 mg 00:00: mouth in [place] tablet 00 the Medical morning. Branch Indication s: a clot in the lung diltiazem 2021-06 Yes [id number] 120mg Take 1 [facility] XR 120 mg 2-29 capsule by [facility] of 24 hr 00:00: mouth in [place] capsule 00 the Medical morning. Branch rivaroxaban 2021-06 Yes 1291 20mg Take 1 [facility] (XARELTO) 2-29 tablet by ity o f 20 mg 00:00: mouth in [place] tablet 00 the Medical morning. Branch Indication s: a clot in the lung diltiazem 2021-06 Yes [id number] 120mg Take 1 [facility] XR 120 mg 2-29 capsule by [facility] of 24 hr 00:00: mouth in [place] capsule 00 the Medical morning. Branch rivaroxaban 2021-06 Yes 1291 20mg Take 1 [facility] (XARELTO) 2-29 tablet by ity o f 20 mg 00:00: mouth in [place] tablet 00 the Medical morning. Branch Indication s: a clot in the lung diltiazem 2021-06 Yes [id number] 120mg Take 1 [facility] XR 120 mg 2-29 capsule by [facility]y of 24 hr 00:00: mouth in [place] capsule 00 the Medical morning. Branch rivaroxaban 2021-06 Yes 1291 20mg Take 1 [facility] (XARELTO) 2-29 tablet by ity o f 20 mg 00:00: mouth in [place] tablet 00 the Medical morning. Branch Indication s: a clot in the lung diltiazem 2021-06 Yes [id number] 120mg Take 1 [facility] XR 120 mg 2-29 capsule by [facility]y of 24 hr 00:00: mouth in [place] capsule 00 the Medical morning. Branch rivaroxaban 2021-06 Yes 1291 20mg Take 1 [facility] (XARELTO) 2-29 tablet by ity o f 20 mg 00:00: mouth in [place] tablet 00 the Medical morning. Branch Indication s: a clot in the lung diltiazem 2021-06 Yes [id number] 120mg Take 1 [facility] XR 120 mg 2-29 capsule by [facility] of 24 hr 00:00: mouth in [place] capsule 00 the Medical morning. Branch rivaroxaban 2021-06 Yes 1291 20mg Take 1 [facility] (XARELTO) 2-29 tablet by ity o f 20 mg 00:00: mouth in [place] tablet 00 the Medical morning. Branch Indication s: a clot in the lung diltiazem 2021-06 Yes [id number] 120mg Take 1 [facility] XR 120 mg 2-29 capsule by [facility]y of 24 hr 00:00: mouth in [place] capsule 00 the Medical morning. Branch rivaroxaban 2021-06 Yes 1291 20mg Take 1 [facility] (XARELTO) 2-29 tablet by ity o f 20 mg 00:00: mouth in [place] tablet 00 the Medical morning. Branch Indication s: a clot in the lung diltiazem 2021-06 Yes [id number] 120mg Take 1 [facility] XR 120 mg 2-29 capsule by [facility]y of 24 hr 00:00: mouth in [place] capsule 00 the Medical morning. Branch rivaroxaban 2021-06 Yes 1291 20mg Take 1 [facility] (XARELTO) 2-29 tablet by ity o f 20 mg 00:00: mouth in [place] tablet 00 the Medical morning. Branch Indication s: a clot in the lung diltiazem 2021-06 Yes [id number] 120mg Take 1 [facility] XR 120 mg 2-29 capsule by ity of 24 hr 00:00: mouth in [place] capsule 00 the Medical morning. Branch rivaroxaban 2021-06 Yes 1291 20mg Take 1 [facility] ers (XARELTO) 2-29 tablet by ity o f 20 mg 00:00: mouth in [place] tablet 00 the Medical morning. Branch Indication s: a clot in the lung diltiazem 2021-06 Yes [id number] 120mg Take 1 [facility] XR 120 mg 2-29 capsule by ity of 24 hr 00:00: mouth in [place] capsule 00 the Medical morning. Branch rivaroxaban 2021-06 Yes 1291 20mg Take 1 [facility] ers (XARELTO) 2-29 tablet by ity o f 20 mg 00:00: mouth in [place] tablet 00 the Medical morning. Branch Indication s: a clot in the lung diltiazem 2021-06 Yes [id number] 120mg Take 1 [facility] XR 120 mg 2-29 capsule by ity of 24 hr 00:00: mouth in [place] capsule 00 the Medical morning. Branch rivaroxaban 2021-06 Yes 1291 20mg Take 1 [facility] ers (XARELTO) 2-29 tablet by ity o f 20 mg 00:00: mouth in [place] tablet 00 the Medical morning. Branch Indication s: a clot in the lung diltiazem 2021-06 Yes [id number] 120mg Take 1 [facility] XR 120 mg 2-29 capsule by ity of 24 hr 00:00: mouth in [place] capsule 00 the Medical morning. Branch rivaroxaban 2021-06 Yes 1291 20mg Take 1 [facility] ers (XARELTO) 2-29 tablet by ity o f 20 mg 00:00: mouth in [place] tablet 00 the Medical morning. Branch Indication s: a clot in the lung diltiazem 2021-06 Yes [id number] 120mg Take 1 [facility] XR 120 mg 2-29 capsule by ity of 24 hr 00:00: mouth in [place] capsule 00 the Medical morning. Branch rivaroxaban 2021-06 Yes 1291 20mg Take 1 [facility] ers (XARELTO) 2-29 tablet by ity o f 20 mg 00:00: mouth in [place] tablet 00 the Medical morning. Branch Indication s: a clot in the lung diltiazem 2021-06 Yes [id number] 120mg Take 1 [facility] XR 120 mg 2-29 capsule by ity of 24 hr 00:00: mouth in [place] capsule 00 the Medical morning. Branch rivaroxaban 2021-06 Yes 1291 20mg Take 1 [facility] ers (XARELTO) 2-29 tablet by ity o f 20 mg 00:00: mouth in [place] tablet 00 the Medical morning. Branch Indication s: a clot in the lung diltiazem 2021-06 Yes [id number] 120mg Take 1 [facility] XR 120 mg 2-29 capsule by ity of 24 hr 00:00: mouth in [place] capsule 00 the Medical morning. Branch rivaroxaban 2021-06 Yes 1291 20mg Take 1 [facility] (XARELTO) 2-29 tablet by ity o f 20 mg 00:00: mouth in [place] tablet 00 the Medical morning. Branch Indication s: a clot in the lung diltiazem 2021-06 Yes [id number] 120mg Take 1 [facility] XR 120 mg 2-29 capsule by ity of 24 hr 00:00: mouth in [place] capsule 00 the Medical morning. Branch rivaroxaban 2021-06 Yes 1291 20mg Take 1 [facility] (XARELTO) 2-29 tablet by ity o f 20 mg 00:00: mouth in [place] tablet 00 the Medical morning. Branch Indication s: a clot in the lung diltiazem 2021-06 Yes [id number] 120mg Take 1 [facility] XR 120 mg 2-29 capsule by ity of 24 hr 00:00: mouth in [place] capsule 00 the Medical morning. Branch rivaroxaban 2021-06 Yes 1291 20mg Take 1 [facility] (XARELTO) 2-29 tablet by ity o f 20 mg 00:00: mouth in [place] tablet 00 the Medical morning. Branch Indication s: a clot in the lung diltiazem 2021-06 Yes [id number] 120mg Take 1 [facility] XR 120 mg 2-29 capsule by ity of 24 hr 00:00: mouth in [place] capsule 00 the Medical morning. Branch rivaroxaban 2021-06 Yes 1291 20mg Take 1 [facility] (XARELTO) 2-29 tablet by ity o f 20 mg 00:00: mouth in [place] tablet 00 the Medical morning. Branch Indication s: a clot in the lung diltiazem 2021-06 Yes [id number] 120mg Take 1 [facility] XR 120 mg 2-29 capsule by ity of 24 hr 00:00: mouth in [place] capsule 00 the Medical morning. Branch rivaroxaban 2021-06 Yes 1291 20mg Take 1 [facility] (XARELTO) 2-29 tablet by ity o f 20 mg 00:00: mouth in [place] tablet 00 the Medical morning. Branch Indication s: a clot in the lung diltiazem 2021-06 Yes [id number] 120mg Take 1 [facility] XR 120 mg 2-29 capsule by ity of 24 hr 00:00: mouth in [place] capsule 00 the Medical morning. Branch rivaroxaban 2021-06 Yes 1291 20mg Take 1 [facility] (XARELTO) 2-29 tablet by ity o f 20 mg 00:00: mouth in [place] tablet 00 the Medical morning. Branch Indication s: a clot in the lung diltiazem 2021-06 Yes [id number] 120mg Take 1 [facility] XR 120 mg 2-29 capsule by ity of 24 hr 00:00: mouth in [place] capsule 00 the Medical morning. Branch rivaroxaban 2021-06 Yes 1291 20mg Take 1 [facility] (XARELTO) 2-29 tablet by ity o f 20 mg 00:00: mouth in [place] tablet 00 the Medical morning. Branch Indication s: a clot in the lung diltiazem 2021-06 Yes [id number] 120mg Take 1 [facility] XR 120 mg 2-29 capsule by ity of 24 hr 00:00: mouth in [place] capsule 00 the Medical morning. Branch rivaroxaban 2021-06 Yes 1291 20mg Take 1 [facility] (XARELTO) 2-29 tablet by ity o f 20 mg 00:00: mouth in [place] tablet 00 the Medical morning. Branch Indication s: a clot in the lung diltiazem 2021-06 Yes [id number] 120mg Take 1 [facility] XR 120 mg 2-29 capsule by ity of 24 hr 00:00: mouth in [place] capsule 00 the Medical morning. Branch rivaroxaban 2021-06 Yes 1291 20mg Take 1 [facility] (XARELTO) 2-29 tablet by ity o f 20 mg 00:00: mouth in [place] tablet 00 the Medical morning. Branch Indication s: a clot in the lung diltiazem 2021-06 Yes [id number] 120mg Take 1 [facility] XR 120 mg 2-29 capsule by ity of 24 hr 00:00: mouth in [place] capsule 00 the Medical morning. Branch rivaroxaban 2021-06 Yes 1291 20mg Take 1 [facility] (XARELTO) 2-29 tablet by ity o f 20 mg 00:00: mouth in [place] tablet 00 the Medical morning. Branch Indication s: a clot in the lung diltiazem 2021-06 Yes [id number] 120mg Take 1 [facility] XR 120 mg 2-29 capsule by ity of 24 hr 00:00: mouth in [place] capsule 00 the Medical morning. Branch rivaroxaban 2021-06 Yes 1291 20mg Take 1 [facility] (XARELTO) 2-29 tablet by ity o f 20 mg 00:00: mouth in [place] tablet 00 the Medical morning. Branch Indication s: a clot in the lung diltiazem 2021-06 Yes [id number] 120mg Take 1 [facility] XR 120 mg 2-29 capsule by ity of 24 hr 00:00: mouth in [place] capsule 00 the Medical morning. Branch rivaroxaban 2021-06 Yes 1291 20mg Take 1 [facility] (XARELTO) 2-29 tablet by ity o f 20 mg 00:00: mouth in [place] tablet 00 the Medical morning. Branch Indication s: a clot in the lung diltiazem 2021-06 Yes [id number] 120mg Take 1 [facility] XR 120 mg 2-29 capsule by ity of 24 hr 00:00: mouth in [place] capsule 00 the Medical morning. Branch rivaroxaban 2021-06 Yes 1291 20mg Take 1 [facility] (XARELTO) 2-29 tablet by ity o f 20 mg 00:00: mouth in [place] tablet 00 the Medical morning. Branch Indication s: a clot in the lung diltiazem 2021-06 Yes [id number] 120mg Take 1 [facility] XR 120 mg 2-29 capsule by ity of 24 hr 00:00: mouth in [place] capsule 00 the Medical morning. Branch rivaroxaban 2021-06 Yes 1291 20mg Take 1 [facility] (XARELTO) 2-29 tablet by ity o f 20 mg 00:00: mouth in [place] tablet 00 the Medical morning. Branch Indication s: a clot in the lung diltiazem 2021-06 Yes [id number] 120mg Take 1 [facility] XR 120 mg 2-29 capsule by ity of 24 hr 00:00: mouth in [place] capsule 00 the Medical morning. Branch rivaroxaban 2021-06 Yes 1291 20mg Take 1 [facility] (XARELTO) 2-29 tablet by ity o f 20 mg 00:00: mouth in [place] tablet 00 the Medical morning. Branch Indication s: a clot in the lung diltiazem 2021-06 Yes [id number] 120mg Take 1 [facility] XR 120 mg 2-29 capsule by ity of 24 hr 00:00: mouth in [place] capsule 00 the Medical morning. Branch rivaroxaban 2021-06 Yes 1291 20mg Take 1 [facility] (XARELTO) 2-29 tablet by ity o f 20 mg 00:00: mouth in [place] tablet 00 the Medical morning. Branch Indication s: a clot in the lung diltiazem 2021-06 Yes [id number] 120mg Take 1 [facility] XR 120 mg 2-29 capsule by ity of 24 hr 00:00: mouth in [place] capsule 00 the Medical morning. Branch rivaroxaban 2021-06 Yes 1291 20mg Take 1 [facility] (XARELTO) 2-29 tablet by ity o f 20 mg 00:00: mouth in [place] tablet 00 the Medical morning. Branch Indication s: a clot in the lung diltiazem 2021-06 Yes [id number] 120mg Take 1 [facility] XR 120 mg 2-29 capsule by ity of 24 hr 00:00: mouth in [place] capsule 00 the Medical morning. Branch rivaroxaban 2021-06 Yes 1291 20mg Take 1 [facility] (XARELTO) 2-29 tablet by ity o f 20 mg 00:00: mouth in [place] tablet 00 the Medical morning. Branch Indication s: a clot in the lung diltiazem 2021-06 Yes [id number] 120mg Take 1 [facility] XR 120 mg 2-29 capsule by ity of 24 hr 00:00: mouth in [place] capsule 00 the Medical morning. Branch rivaroxaban 2021-06 Yes 1291 20mg Take 1 [facility] (XARELTO) 2-29 tablet by ity o f 20 mg 00:00: mouth in [place] tablet 00 the Medical morning. Branch Indication s: a clot in the lung diltiazem 2021-06 Yes [id number] 120mg Take 1 [facility] XR 120 mg 2-29 capsule by ity of 24 hr 00:00: mouth in [place] capsule 00 the Medical morning. Branch rivaroxaban 2021-06 Yes 1291 20mg Take 1 [facility] (XARELTO) 2-29 tablet by ity o f 20 mg 00:00: mouth in [place] tablet 00 the Medical morning. Branch Indication s: a clot in the lung diltiazem 2021-06 Yes [id number] 120mg Take 1 [facility] XR 120 mg 2-29 capsule by ity of 24 hr 00:00: mouth in [place] capsule 00 the Medical morning. Branch rivaroxaban 2021-06 Yes 1291 20mg Take 1 [facility] (XARELTO) 2-29 tablet by ity o f 20 mg 00:00: mouth in [place] tablet 00 the Medical morning. Branch Indication s: a clot in the lung diltiazem 2021-06 Yes [id number] 120mg Take 1 [facility] XR 120 mg 2-29 capsule by ity of 24 hr 00:00: mouth in [place] capsule 00 the Medical morning. Branch isosorbide 2021-063- No [id number] 30mg Take 0.5 [facility] mononitrate 2-29 - tablets by i ty of 60 mg 24 hr 00:00: 00:00 mouth in [place] tablet 00 :00 the Medical morning. Branch isosorbide 2021-06- No [id number] 30mg Take 0.5 [facility] mononitrate 2-29 - tablets by i ty of 60 mg 24 hr 00:00: 00:00 mouth in [place] tablet 00 :00 the Medical morning. Branch isosorbide 2021-06- No [id number] 30mg Take 0.5 [facility] mononitrate 2-- tablets by i ty of 60 mg 24 hr 00:00: 00:00 mouth in [place] tablet 00 :00 the Medical morning. Branch isosorbide 2021-06- No [id number] 30mg Take 0.5 [facility] mononitrate 2-- tablets by i ty of 60 mg 24 hr 00:00: 00:00 mouth in [place] tablet 00 :00 the Medical morning. Branch isosorbide 2021-06- No [id number] 30mg Take 0.5 [facility] mononitrate 2-- tablets by i ty of 60 mg 24 hr 00:00: 00:00 mouth in [place] tablet 00 :00 the Medical morning. Branch isosorbide 2021-06- No [id number] 30mg Take 0.5 [facility] mononitrate 2-- tablets by i ty of 60 mg 24 hr 00:00: 00:00 mouth in [place] tablet 00 :00 the Medical morning. Branch isosorbide 2021-06- No [id number] 30mg Take 0.5 [facility] mononitrate 2-- tablets by i ty of 60 mg 24 hr 00:00: 00:00 mouth in [place] tablet 00 :00 the Medical morning. Branch isosorbide 2021-06- No [id number] 30mg Take 0.5 [facility] mononitrate 2-29 - tablets by i ty of 60 mg 24 hr 00:00: 00:00 mouth in [place] tablet 00 :00 the Medical morning. Branch isosorbide 2021-06- No [id number] 30mg Take 0.5 [facility] mononitrate 2-- tablets by i ty of 60 mg 24 hr 00:00: 00:00 mouth in [place] tablet 00 :00 the Medical morning. Branch isosorbide 2021-06- No [id number] 30mg Take 0.5 [facility] mononitrate 08-19 tablets by i ty of 60 mg 24 hr 00:00: 00:00 mouth in [place] tablet 00 :00 the Medical morning. Branch isosorbide 2021-06- No [id number] 30mg Take 0.5 [facility] mononitrate 08-19 tablets by i ty of 60 mg 24 hr 00:00: 00:00 mouth in [place] tablet 00 :00 the Medical morning. Branch isosorbide 2021-06- No [id number] 30mg Take 0.5 [facility] mononitrate 08-19 tablets by i ty of 60 mg 24 hr 00:00: 00:00 mouth in [place] tablet 00 :00 the Medical morning. [place] bumetanide 2021-06- No [id number] 2mg Take 1 [facility] 2 mg tablet 06-25 tablet by it y of 00:00: 00:00 mouth [place] 00 :00 every Medical morning Branch and evening. aspirin 325 2021-06- No [id number] 325mg Take 1 [facility] mg tablet 06-25 tablet by ity of 00:00: 00:00 mouth in [place] 00 :00 the Medical morning. Branch bumetanide 2021-06- No [id number] 2mg Take 1 [facility] 2 mg tablet 06-25 tablet by it y of 00:00: 00:00 mouth [place] 00 :00 every Medical morning Branch and evening. aspirin 325 2021-06- No [id number] 325mg Take 1 [facility] mg tablet 06-25 tablet by ity of 00:00: 00:00 mouth in [place] 00 :00 the Medical morning. Branch bumetanide 2021-06- No [id number] 2mg Take 1 [facility] 2 mg tablet 06-25 tablet by it y of 00:00: 00:00 mouth [place] 00 :00 every Medical morning Branch and evening. aspirin 325 2021-06- No [id number] 325mg Take 1 [facility] mg tablet 06-25 tablet by ity of 00:00: 00:00 mouth in [place] 00 :00 the Medical morning. Branch bumetanide 2021-06- No [id number] 2mg Take 1 [facility] 2 mg tablet 06-25 tablet by it y of 00:00: 00:00 mouth [place] 00 :00 every Medical morning Branch and evening. aspirin 325 2021-06- No [id number] 325mg Take 1 [facility] mg tablet 06-25 tablet by ity of 00:00: 00:00 mouth in [place] 00 :00 the Medical morning. Branch bumetanide 2021-06- No [id number] 2mg Take 1 [facility] 2 mg tablet 06-25 tablet by it y of 00:00: 00:00 mouth [place] 00 :00 every Medical morning Branch and evening. aspirin 325 2021-2022- No [id number] 325mg Take 1 [facility] mg tablet 06-25 tablet by ity of 00:00: 00:00 mouth in [place] 00 :00 the Medical morning. Branch bumetanide 2021-06- No [id number] 2mg Take 1 [facility] 2 mg tablet 06-25 tablet by it y of 00:00: 00:00 mouth [place] 00 :00 every Medical morning Branch and evening. aspirin 325 2021-06- No [id number] 325mg Take 1 [facility] mg tablet 06-25 tablet by ity of 00:00: 00:00 mouth in [place] 00 :00 the Medical morning. Branch KCL 2021-06 Yes 40meq 40 mEq, [facility] mEq/15 mL 08-20 Oral, BID, ity of solution 40 14:00: First dose [place] mEq 00 (after Medical last Branch modificati on) on Fri06/19/22 at 0800, Until Discontinu ed, Routine KCL 20 2021-06- No [id number] 40meq Take 30 mL [facility] mEq/15 mL 08-20 by mouth ity o f solution 00:00: 05:59 in the [place] 00 :00 morning Medical and 30 mL Branch in the evening. Do all this for 30 days. KCL 20 2021-06- No [id number] 40meq Take 30 mL [facility] mEq/15 mL 08-20 by mouth ity o f solution 00:00: 05:59 in the [place] 00 :00 morning Medical and 30 mL Branch in the evening. Do all this for 30 days. KCL 2021-06- No [id number] 40meq Take 30 mL [facility] mEq/15 mL 08-20 by mouth ity o f solution 00:00: 05:59 in the [place] 00 :00 morning Medical and 30 mL Branch in the evening. Do all this for 30 days. KCL 2021-06- No [id number] 40meq Take 30 mL [facility] mEq/15 mL 08-20 by mouth ity o f solution 00:00: 05:59 in the [place] 00 :00 morning Medical and 30 mL Branch in the evening. Do all this for 30 days. KCL 2021-06- No [id number] 40meq Take 30 mL [facility] mEq/15 mL 08-20 by mouth ity o f solution 00:00: 05:59 in the [place] 00 :00 morning Medical and 30 mL Branch in the evening. Do all this for 30 days. KCL 2021-06- No [id number] 40meq Take 30 mL [facility] mEq/15 mL 08-20 by mouth ity o f solution 00:00: 05:59 in the [place] 00 :00 morning Medical and 30 mL Branch in the evening. Do all this for 30 days. KCL 2021-06- No [id number] 40meq Take 30 mL [facility] mEq/15 mL 08-20 by mouth ity o f solution 00:00: 05:59 in the [place] 00 :00 morning Medical and 30 mL Branch in the evening. Do all this for 30 days. KCL 2021-06- No [id number] 40meq Take 30 mL [facility] mEq/15 mL 08-20 by mouth ity o f solution 00:00: 05:59 in the [place] 00 :00 morning Medical and 30 mL Branch in the evening. Do all this for 30 days. KCL 2021-06- No [id number] 40meq Take 30 mL [facility] mEq/15 mL 08-20 by mouth ity o f solution 00:00: 05:59 in the [place] 00 :00 morning Medical and 30 mL Branch in the evening. Do all this for 30 days. KCL 2021-06- No [id number] 40meq Take 30 mL [facility] mEq/15 mL 08-20 by mouth ity o f solution 00:00: 05:59 in the [place] 00 :00 morning Medical and 30 mL Branch in the evening. Do all this for 30 days. KCL 2021-06- No [id number] 40meq Take 30 mL [facility] mEq/15 mL 08-20 by mouth ity o f solution 00:00: 00:00 in the [place] 00 :00 morning Medical and 30 mL Branch in the evening. Do all this for 30 days. KCL 2021-06- No [id number] 40meq Take 30 mL [facility] mEq/15 mL 08-20 by mouth ity o f solution 00:00: 00:00 in the [place] 00 :00 morning Medical and 30 mL Branch in the evening. Do all this for 30 days. KCL 2021-06- No [id number] 40meq Take 30 mL [facility] mEq/15 mL 08-20 by mouth ity o f solution 00:00: 00:00 in the [place] 00 :00 morning Medical and 30 mL Branch in the evening. Do all this for 30 days. KCL 2021-06- No [id number] 40meq Take 30 mL [facility] mEq/15 mL 08-20 by mouth ity o f solution 00:00: 00:00 in the [place] 00 :00 morning Medical and 30 mL Branch in the evening. Do all this for 30 days. KCL 2021-06- No [id number] 40meq Take 30 mL [facility] mEq/15 mL 08-20 by mouth ity o f solution 00:00: 00:00 in the [place] 00 :00 morning Medical and 30 mL Branch in the evening. Do all this for 30 days. KCL 2021-06- No [id number] 40meq Take 30 mL [facility] mEq/15 mL 08-20 by mouth ity o f solution 00:00: 00:00 in the [place] 00 :00 morning Medical and 30 mL Branch in the evening. Do all this for 30 days. bumetanide 2021-06 Yes 2mg 2 mg, Univer s (BUMEX) 2-27 Oral, ity of tablet 2 mg 23:00: QAM+PM, [place] as 00 First dose Medical (after Branch last modificati on) on Fri06/18/22 at 1700, Until Discontinu ed, Routine coenzyme 2021-06 Yes 100mg 100 mg, Unive rs Q10 (CO 2-27 Oral, ity of Q-10) 15:00: DAILY, [place] softgel 100 00 First dose Me dical mg on [facility] 06/18/22 at 0900, Until Discontinu ed cholecalcif 2021-06 Yes 2000U 2,000 Univ ers [place] 2-27 Units, ity of (vitamin 15:00: Oral, [place] D3) tablet 00 DAILY, Medical 2,000 Units First dose Br anch on 06/18/22 at 0900, Until Discontinu ed ferrous 2021-06 Yes 325mg 325 mg, Univer s sulfate 2-27 Oral, ity of tablet 325 15:00: DAILY, [place] mg 00 First dose Medical on [facility] 06/18/22 at 0900, Until Discontinu ed, Routine zinc 2021-06 Yes 50mg 50 mg, [facility] sulfate 2 Oral, ity of (ORAZINC) 15:00: DAILY, [place] capsule 50 00 First dose Med ical mg on [facility] 06/18/22 at 0900, Until Discontinu ed isosorbide 2021-06 Yes 30mg 30 mg, Unive rs mononitrate 2-27 Oral, ity of (IMDUR) 24 15:00: DAILY, [place] hr tablet 00 First dose Medi marium 30 mg on [facility] 06/18/22 at 0900, Until Discontinu ed, Routine foLIC acid 2021-06 Yes 1mg 1 mg, Univer s (FOLATE) 2- Oral, ity of tablet 1 mg 15:00: [place]ILY, [place] 00 First dose Medical on [facility] 06/18/22 at 0900, Until Discontinu ed, Routine empaglifloz 2021-06 Yes 10mg 10 mg, Univ ers in 2-27 Oral, ity of (JARDIANCE) 15:00: DAILY, [place] tablet 10 00 First dose Medi marium mg on [facility] 06/18/22 at 0900, Until Discontinu ed, Routine
Is this a home medication ? Yes
Has this patient brought their own medication ? No
[facility]y cardosoy will dispense the medication from inpatient. Pharmacy will dispense the medication from inpatient.
Inpati ent ordering of this medication is not allowed unless the patient is maintained on this medication at home, and home supply is unavailabl e. Does this order meet the criteria for inpatient ordering? Yes diltiazem 2021-06 Yes 120mg 120 mg, Univ ers XR 2-27 Oral, ity of (DILT-XR) 15:00: DAILY, [place] capsule 120 00 First dose Me dical mg on [facility] 06/18/22 at 0900, Until Discontinu ed, Routine buPROPion 2021-06 Yes 150mg 150 mg, Univ ers XL 2-27 Oral, ity of (WELLBUTRIN 15:00: DAILY, [place] XL[place] tablet 00 First dose Med ical 150 mg on [facility] 06/18/22 at 0900, Until Discontinu ed, Routine ARIPiprazol 2021-06 Yes 15mg 15 mg, Univ ers e (ABILIFY) 2- Oral, ity of tablet 15 15:00: DAILY, [place] mg 00 First dose Medical on [facility] 06/18/22 at 0900, Until Discontinu ed, Routine allopurinoL 2021-06 Yes 300mg 300 mg, Un [place] (ZYLOPRIM) 2- Oral, ity of tablet 300 15:00: DAILY, [place] mg 00 First dose Medical on [facility] 06/18/22 at 0900, Until Discontinu ed, Routine aspirin 2021-06 Yes 325mg 325 mg, Univer s tablet 325 2- Oral, ity of mg 15:00: DAILY, [place] 00 First dose Medical on [facility] 06/18/22 at 0900, Until Discontinu ed, Routine pyridoxine 2021-06 Yes Take by Univ ers HCl, 2-27 mouth ity of vitamin B6, 14:41: daily. [place] (VITAMIN 42 Medical B-6 ORAL) Branch methocarbam 2021-06 Yes 750mg Take 750 U nivers ol 750 mg 2-27 mg by ity of tablet 14:41: mouth 2 [place] 42 (two) Medical times Branch daily. buprenorphi 2021-[address] 8 mg [facility] ne-naloxone 2-27 under the ity of 8-2 mg 14:41: tongue [place] sublingual 42 every 12 Medic al film (twelve) Branch hours as needed for Pain (scale 7-10). Cholecalcif 2021-06 Yes 1{tbl} Take 1 [facility] [place], 2-27 tablet by ity of Vitamin D3, 14:41: mouth [place] 50 mcg 42 daily. Medical (2,000 Branch unit) tablet ZINC ORAL 2021-06 Yes Take by Unive rs 2-27 mouth ity of 14:41: daily. [place] [address] Medical Branch COQ10, 2021-06 Yes Take by [facility] UBIQUINOL, 2-27 mouth. ity of ORAL 14:41: [place] [address] Medical Branch levocarniti 2021-06 Yes Take by Uni vers ne 2-27 mouth. ity of (L-CARNITIN 14:41: [place] E ORAL) 42 Medical Branch metoprolol 2021-06 Yes 12.5mg Take 12.5 [facility] tartrate 25 2-27 mg by ity of mg tablet 14:41: mouth [place] 42 needed Medical (afib). Branch pyridoxine 2021-06 Yes Take by Univ ers HCl, 2- mouth ity of vitamin B6, 14:41: daily. [place] (VITAMIN 42 Medical B-6 ORAL) Branch methocarbam 2021-06 Yes 750mg Take 750 U nivers ol 750 mg 2-27 mg by ity of tablet 14:41: mouth 2 [place] 42 (two) Medical times Branch daily. buprenorphi 2021-[address] 8 mg [facility] ne-naloxone 2-27 under the ity of 8-2 mg 14:41: tongue [place] sublingual 42 every 12 Medic al film (twelve) Branch hours as needed for Pain (scale 7-10). Cholecalcif 2021-06 Yes 1{tbl} Take 1 [facility] [place], 2-27 tablet by ity of Vitamin D3, 14:41: mouth [place] 50 mcg 42 daily. Medical (2,000 Branch unit) tablet ZINC ORAL 2021-06 Yes Take by Unive rs 2-27 mouth ity of 14:41: daily. [place] [address] Medical Branch COQ10, 2021-06 Yes Take by [facility] UBIQUINOL, 2-27 mouth. ity of ORAL 14:41: [place] [address] Medical Branch levocarniti 2021-06 Yes Take by Uni vers ne 2-27 mouth. ity of (L-CARNITIN 14:41: [place] E ORAL) 42 Medical Branch metoprolol 2021-06 Yes 12.5mg Take 12.5 [facility] tartrate 25 2-27 mg by ity of mg tablet 14:41: mouth [place] 42 needed Medical (afib). Branch pyridoxine 2021-06 Yes Take by Univ ers HCl, 2-27 mouth ity of vitamin B6, 14:41: daily. [place] (VITAMIN 42 Medical B-6 ORAL) Branch methocarbam 2021-06 Yes 750mg Take 750 U nivers ol 750 mg 2-27 mg by ity of tablet 14:41: mouth 2 [place] [address] (two) Medical times Branch daily. buprenorphi 2021-[address] 8 mg [facility] ne-naloxone 2-27 under the ity of 8-2 mg 14:41: tongue [place] sublingual 42 every 12 Medic al film (twelve) Branch hours as needed for Pain (scale 7-10). Cholecalcif 2021-06 Yes 1{tbl} Take 1 [facility] [place], 2-27 tablet by ity of Vitamin D3, 14:41: mouth [place] 50 mcg 42 daily. Medical (2,000 Branch unit) tablet ZINC ORAL 2021-06 Yes Take by Unive rs 2-27 mouth ity of 14:41: daily. [address] Branch COQ10, 2021-06 Yes Take by Univers UBIQUINOL, 2-27 mouth. ity of ORAL 14:41: [address] Branch levocarniti 2021-06 Yes Take by Uni vers ne 2-27 mouth. ity of (L-CARNITIN 14:41: [place] E ORAL) 42 Medical Branch metoprolol 2021-06 Yes 12.5mg Take 12.5 [facility] tartrate 25 2-27 mg by ity of mg tablet 14:41: mouth [place] 42 needed Medical (afib). Branch pyridoxine 2021-06 Yes Take by Univ ers HCl, 2-27 mouth ity of vitamin B6, 14:41: daily. [place] (VITAMIN 42 Medical B-6 ORAL) Branch methocarbam 2021-06 Yes 750mg Take 750 U nivers ol 750 mg 2-27 mg by ity of tablet 14:41: mouth 2 [place] 42 (two) Medical times Branch daily. buprenorphi 2021-[address] 8 mg [facility] ne-naloxone 2-27 under the ity of 8-2 mg 14:41: tongue [place] sublingual 42 every 12 Medic al film (twelve) Branch hours as needed for Pain (scale 7-10). Cholecalcif 2021-06 Yes 1{tbl} Take 1 [facility] [place], 2-27 tablet by ity of Vitamin D3, 14:41: mouth [place] 50 mcg 42 daily. Medical (2,000 Branch unit) tablet ZINC ORAL 2021-06 Yes Take by Unive rs 2-27 mouth ity of 14:41: daily. [place] [address] Medical Branch COQ10, 2021-06 Yes Take by [facility] UBIQUINOL, 2-27 mouth. ity of ORAL 14:41: [place] [address] Medical Branch levocarniti 2021-06 Yes Take by Uni vers ne 2-27 mouth. ity of (L-CARNITIN 14:41: [place] E ORAL) Medical Branch metoprolol 2021-06 Yes 12.5mg Take 12.5 [facility] tartrate 25 2-27 mg by ity of mg tablet 14:41: mouth [place] 42 needed Medical (afib). Branch pyridoxine 2021-06 Yes Take by Univ ers HCl, 2-27 mouth ity of vitamin B6, 14:41: [place]. [place] (VITAMIN 42 Medical B-6 ORAL) Branch methocarbam 2021-06 Yes 750mg Take 750 U nivers ol 750 mg 2-27 mg by ity of tablet 14:41: mouth 2 [place] 42 (two) Medical times Branch daily. buprenorphi 2021-[address] 8 mg Univers ne-naloxone 2-27 under the ity of 8-2 mg 14:41: tongue [place] sublingual 42 every 12 Medic al film (twelve) Branch hours as needed for Pain (scale 7-10). Cholecalcif 2021-06 Yes 1{tbl} Take 1 [place], 2-27 tablet by ity of Vitamin D3, 14:41: mouth [place] 50 mcg 42 daily. Medical (2,000 Branch unit) tablet ZINC ORAL 2021-06 Yes Take by Unive rs 2-27 mouth ity of 14:41: daily. [place] [address] Medical Branch COQ10, 2021-06 Yes Take by Univers UBIQUINOL, 2-27 mouth. ity of ORAL 14:41: [place] [address] Medical Branch levocarniti 2021-06 Yes Take by Uni vers ne 2- mouth. ity of (L-CARNITIN 14:41: [place] E ORAL) 42 Medical Branch metoprolol 2021-06 Yes 12.5mg Take 12.5 [facility] tartrate 25 2-27 mg by [place]y of mg tablet 14:41: mouth [place] 42 needed Medical (afib). Branch pyridoxine 2021-06 Yes Take by Univ ers HCl, 2- mouth ity of vitamin B6, 14:41: daily. [place] (VITAMIN 42 Medical B-6 ORAL) Branch methocarbam 2021-06 Yes 750mg Take 750 U nivers ol 750 mg 2-27 mg by ity of tablet 14:41: mouth 2 [place] 42 (two) Medical times Branch daily. buprenorphi 2021-[address] 8 mg Univers ne-naloxone 08-19 under the ity of 8-2 mg 14:41: tongue [place] sublingual 42 every 12 Medic al film (twelve) Branch hours as needed for Pain (scale 7-10). Cholecalcif 2021-06 Yes 1{tbl} Take 1 [place], 08-19 tablet by ity of Vitamin D3, 14:41: mouth [place] 50 mcg 42 daily. Medical (2,000 Branch unit) tablet ZINC ORAL 2021-06 Yes [facility] mouth ity of 14:41: daily. [place] [address] Medical Branch COQ10, 2021-06 Yes Take by Univers UBIQUINOL, 08-19 mouth. ity of ORAL 14:41: [place] [address] Medical Branch levocarniti 2021-06 Yes Take by Uni vers ne - mouth. ity of (L-CARNITIN 14:41: [place] E ORAL) 42 Medical Branch metoprolol 2021-06 Yes 12.5mg Take 12.5 [facility] tartrate 25 2-27 mg by [place]y of mg tablet 14:41: mouth [place] 42 needed Medical (afib). Branch pyridoxine 2021-06 Yes Take by Univ ers HCl, 2- mouth ity of vitamin B6, 14:41: daily. [place] (VITAMIN 42 Medical B-6 ORAL) Branch methocarbam 2021-06 Yes 750mg Take 750 U nivers ol 750 mg 2-27 mg by ity of tablet 14:41: mouth 2 [place] 42 (two) Medical times Branch daily. buprenorphi 2021-[address] 8 mg Univers ne-naloxone 2-27 under the ity of 8-2 mg 14:41: tongue [place] sublingual 42 every 12 Medic al film (twelve) Branch hours as needed for Pain (scale 7-10). Cholecalcif 2021-06 Yes 1{tbl} Take 1 [place], 2-27 tablet by ity of Vitamin D3, 14:41: mouth [place] 50 mcg 42 daily. Medical (2,000 Branch unit) tablet ZINC ORAL 2021-06 Yes Take by Unive rs 2-27 mouth ity of 14:41: daily. [address] Branch COQ10, 2021-06 Yes Take by Univers UBIQUINOL, 2-27 mouth. ity of ORAL 14:41: [address] Branch levocarniti 2021-06 Yes Take by Uni vers ne 2-27 mouth. ity of (L-CARNITIN 14:41: [place] E ORAL) Medical Branch metoprolol 2021-06 Yes 12.5mg Take 12.5 [facility] tartrate 25 2-27 mg by [place]y of mg tablet 14:41: mouth as [place] 42 needed Medical (afib). Branch pyridoxine 2021-06 Yes Take by Univ ers HCl, 2-27 mouth ity of vitamin B6, 14:41: daily. [place] (VITAMIN 42 Medical B-6 ORAL) Branch methocarbam 2021-06 Yes 750mg Take 750 U nivers ol 750 mg 2-27 mg by ity of tablet 14:41: mouth 2 [place] 42 (two) Medical times Branch daily. buprenorphi 2021-[address] 8 mg Univers ne-naloxone 2-27 under the ity of 8-2 mg 14:41: tongue [place] sublingual 42 every 12 Medic al film (twelve) Branch hours as needed for Pain (scale 7-10). Cholecalcif 2021-06 Yes 1{tbl} Take 1 [place], 2-27 tablet by ity of Vitamin D3, 14:41: mouth [place] 50 mcg 42 daily. Medical (2,000 Branch unit) tablet ZINC ORAL 2021-06 Yes Take by Unive rs 2-27 mouth ity of 14:41: daily. [place] 42 Medical Branch COQ10, 2021-06 Yes Take by Univers UBIQUINOL, 2-27 mouth. ity of ORAL 14:41: [place] [address] Medical Branch levocarniti 2021-06 Yes Take by Uni vers ne 2-27 mouth. ity of (L-CARNITIN 14:41: [place] E ORAL) 42 Medical Branch metoprolol 2021-06 Yes 12.5mg Take 12.5 [facility] tartrate 25 2-27 mg by [place]y of mg tablet 14:41: mouth as [place] 42 needed Medical (afib). Branch pyridoxine 2021-06 Yes Take by Univ ers HCl, 2-27 mouth ity of vitamin B6, 14:41: daily. [place] (VITAMIN 42 Medical B-6 ORAL) Branch methocarbam 2021-06 Yes 750mg Take 750 U nivers ol 750 mg 2-27 mg by ity of tablet 14:41: mouth 2 [place] 42 (two) Medical times Branch daily. buprenorphi 2021-[address] 8 mg Univers ne-naloxone 2-27 under the ity of 8-2 mg 14:41: tongue [place] sublingual 42 every 12 Medic al film (twelve) Branch hours as needed for Pain (scale 7-10). Cholecalcif 2021-06 Yes 1{tbl} Take 1 [place], 2-27 tablet by ity of Vitamin D3, 14:41: mouth [place] 50 mcg 42 daily. Medical (2,000 Branch unit) tablet ZINC ORAL 2021-06 Yes Take by Unive rs 2-27 mouth ity of 14:41: daily. [place] [address] Medical Branch COQ10, 2021-06 Yes Take by Univers UBIQUINOL, 2-27 mouth. ity of ORAL 14:41: [place] [address] Medical Branch levocarniti 2021-06 Yes Take by Uni vers ne 2-27 mouth. ity of (L-CARNITIN 14:41: [place] E ORAL) 42 Medical Branch metoprolol 2021-06 Yes 12.5mg Take 12.5 [facility] tartrate 25 2-27 mg by [place]y of mg tablet 14:41: mouth as [place] 42 needed Medical (afib). Branch pyridoxine 2021-06 Yes Take by Univ ers HCl, 2-27 mouth ity of vitamin B6, 14:41: daily. [place] (VITAMIN 42 Medical B-6 ORAL) Branch methocarbam 2021-06 Yes 750mg Take 750 U nivers ol 750 mg 2-27 mg by ity of tablet 14:41: mouth 2 [place] 42 (two) Medical times Branch daily. buprenorphi 2021-[address] 8 mg Univers ne-naloxone 2-27 under the ity of 8-2 mg 14:41: tongue [place] sublingual 42 every 12 Medic al film (twelve) Branch hours as needed for Pain (scale 7-10). Cholecalcif 2021-06 Yes 1{tbl} Take 1 [place], 2-27 tablet by ity of Vitamin D3, 14:41: mouth [place] 50 mcg 42 daily. Medical (2,000 Branch unit) tablet ZINC ORAL 2021-06 Yes Take by Unive rs 2-27 mouth ity of 14:41: daily. [place] [address] Medical Branch COQ10, 2021-06 Yes Take by Univers UBIQUINOL, 2-27 mouth. ity of ORAL 14:41: [place] [address] Medical Branch levocarniti 2021-06 Yes Take by Uni vers ne 2-27 mouth. ity of (L-CARNITIN 14:41: [place] E ORAL) 42 Medical Branch metoprolol 2021-06 Yes 12.5mg Take 12.5 [facility] tartrate 25 2-27 mg by ity of mg tablet 14:41: mouth [place] 42 needed Medical (afib). Branch pyridoxine 2021-06 Yes Take by Univ ers HCl, 2-27 mouth ity of vitamin B6, 14:41: daily. [place] (VITAMIN 42 Medical B-6 ORAL) Branch methocarbam 2021-06 Yes 750mg Take 750 U nivers ol 750 mg 2-27 mg by ity of tablet 14:41: mouth 2 [place] 42 (two) Medical times Branch daily. buprenorphi 2021-[address] 8 mg Univers ne-naloxone 2-27 under the ity of 8-2 mg 14:41: tongue [place] sublingual 42 every 12 Medic al film (twelve) Branch hours as needed for Pain (scale 7-10). Cholecalcif 2021-06 Yes 1{tbl} Take 1 [place], 2-27 tablet by ity of Vitamin D3, 14:41: mouth [place] 50 mcg 42 daily. Medical (2,000 Branch unit) tablet ZINC ORAL 2021-06 Yes Take by Unive rs 2-27 mouth ity of 14:41: daily. [address] Branch COQ10, 2021-06 Yes Take by Univers UBIQUINOL, 2-27 mouth. ity of ORAL 14:41: [address] Branch levocarniti 2021-06 Yes Take by Uni vers ne 2-27 mouth. ity of (L-CARNITIN 14:41: [place] E ORAL) [address] [place] [address] Branch pyridoxine 2021-06 Yes Take by Univ ers HCl, 2-27 mouth ity of vitamin B6, 14:41: daily. [place] (VITAMIN 42 Medical B-6 ORAL) Branch methocarbam 2021-06 Yes 750mg Take 750 U nivers ol 750 mg 2-27 mg by ity of tablet 14:41: mouth 2 [place] [address] (two) Medical times Branch daily. buprenorphi 2021-[address] 8 mg Univers ne-naloxone 2-27 under the ity of 8-2 mg 14:41: tongue [place] sublingual 42 every 12 Medic al film (twelve) Branch hours as needed for Pain (scale 7-10). Cholecalcif 2021-06 Yes 1{tbl} Take 1 [place], 2-27 tablet by ity of Vitamin D3, 14:41: mouth [place] 50 mcg 42 daily. Medical (2,000 Branch unit) tablet ZINC ORAL 2021-06 Yes Take by Unive rs 2-27 mouth ity of 14:41: daily. [address] COQ10, 2021-06 Yes Take by Univers UBIQUINOL, 2-27 mouth. ity of ORAL 14:41: [address] Branch levocarniti 2021-06 Yes Take by Uni vers ne 2-27 mouth. ity of (L-CARNITIN 14:41: [place] E ORAL) [address] [place] [address] Branch pyridoxine 2021-06 Yes Take by Univ ers HCl, 2-27 mouth ity of vitamin B6, 14:41: daily. [place] (VITAMIN 42 Medical B-6 ORAL) Branch methocarbam 2021-06 Yes 750mg Take 750 U nivers ol 750 mg 2-27 mg by ity of tablet 14:41: mouth 2 [place] 42 (two) Medical times Branch daily. buprenorphi 2021-[address] 8 mg Univers ne-naloxone 2-27 under the ity of 8-2 mg 14:41: tongue [place] sublingual 42 every 12 Medic al film (twelve) Branch hours as needed for Pain (scale 7-10). Cholecalcif 2021-06 Yes 1{tbl} Take 1 Un [place], 08-19 tablet by ity of Vitamin D3, 14:41: mouth [place] 50 mcg 42 daily. Medical (2,000 Branch unit) tablet ZINC ORAL 2021-06 Yes Take by [place] [facility] rs 08-19 mouth ity of 14:41: daily. [address] Branch COQ10, 2021-06 Yes Take by [facility] UBIQUINOL, 08-19 mouth. ity of ORAL 14:41: [address] levocarniti 2021-06 Yes Take by [facility] ne 08-19 mouth. ity of (L-CARNITIN 14:41: [place] E ORAL) [address] [place] [address] pantoprazol 2021-06 Yes 40mg 40 mg, Univ ers e 08-19 Oral, BID, ity of (PROTONIX) 14:00: First dose [place] EC tablet 00 on [facility] 40 mg 06/18/22 Branch at 0800, Until Discontinu ed, Routine aMILoride 2021-06 Yes 10mg 10 mg, Univer s (MIDAMOR) 08-19 Oral, BID, ity of tablet 10 14:00: First dose [place] mg 00 on [facility] 06/18/22 Branch at 0800, Until Discontinu ed, Routine KCL 20 2021-06- No 90meq 90 mEq, Univer s mEq/15 mL 08-19 Oral, BID, ity of solution 90 08:00: 17:57 First dose [place] mEq 00 :16 (after Medical last Branch modificati on) on Fri06/18/22 at 0200, Until Discontinu ed, Routine potassium 2021-06- No 10meq 10 mEq, IV Univers chloride in 08-19 Piggyback, i ty of water 10 06:00: 11:06 Q1H, 3 [place] mEq/100 mL 00 :00 doses, Medical RTU 10 mEq First dose Bra nch on Fri06/18/22 at 0000, Last dose on Fri06/18/22 at 0200, Administer over 60 Minutes, 100 mL clonazePAM 2021-06 Yes 1mg 1 mg, Univer s (KLONOPIN) 2-27 Oral, TID, ity of tablet 1 mg 05:45: First dose [place] 00 (after Medical last Branch modificati on) on Fri06/17/22 at 2345, Until Discontinu ed, Routine docusate 2021-06 Yes 100mg 100 mg, Unive rs (COLACE) 2-27 Oral, BID, ity o f capsule 100 05:45: First dose [place] mg 00 on [facility] Medical 06/17/22 Branch at 2345, Until Discontinu ed, Routine sennosides 2021-06 Yes 8.6mg 8.6 mg, Uni vers (SENOKOT) 2-27 Oral, BID, ity of tablet 8.6 05:45: First dose [place] mg 00 on [facility] Medical 06/17/22 Branch at 2345, Until Discontinu ed, Routine Sliding 2021-06 Yes Subcutaneo Univ ers Scale 2-27 us, TID ity of Insulin - 05:45: MEALS+HS, [place] Lispro 00 First dose Medical (HumaLOG) + on Fri Branch Fsbg 06/17/22 Testing at 2345, Until Discontinu ed, Routine polyethylen 2021-06 No 17g 17 g, Univ ers e glycol 2-06-20 Oral, ity of 3350 powder 05:45: 14:59 DAILY, 3 [place] 17 g 00 :00 doses, Medical First dose Branch on Fri06/17/22 at 2345, Last dose on Fri06/19/22 at 0900, Routine ondansetron 2021-06 Yes 4mg 4 mg, Slow Univers (ZOFRAN 227 IV Push, ity of (PF)) 05:35: Q6HPRN, [place] injection 4 28 Starting Medi marium mg on Fri Branch 06/17/22 at 2335, Until Discontinu ed, Routine, Nausea and Vomiting (N/V) buprenorphi 2021-06 Yes 8mg 8 mg, Unive rs ne-naloxone 2-27 Sublingual it y of (SUBOXONE) 05:30: , [id number], [place] 8-2 mg 23 Starting Medical sublingual on Fri film 8 mg 06/17/22 at 2330, Until Discontinu ed, Routine, Pain (scale 7-10), severe pain as per home
Re ason for non-formul philip use: PATIENT CURRENTLY TAKING NONFORMULA RY PRODUCT
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 Non-formul philip medication : MEGADC morpHINE (2 2021-06 Yes 2mg 2 mg, Slow Univers mg/mL) 2 IV Push, ity of injection 2 05:30: Q4HPRN, [place] mg 07 Starting Medical on [facility] Branch 06/17/22 at 2330, Until Discontinu ed, Routine, Chest pain magnesium 2021-06 Yes 400mg 400 mg, Univ ers oxide 2 Oral, BID, ity of (MAG-OX 05:30: [place] 400[place] tablet 00 on [facility] Medica l 400 mg 06/17/22 Branch at 2330, Until Discontinu ed ranolazine 2021-06 Yes 1000mg 1,000 mg, Univers (RANEXA) 12 08-19 Oral, BID, it y of hr tablet 05:30: First dose [place] 1,000 mg 00 on [facility] 06/17/22 Branch at 2330, Until Discontinu ed rivaroxaban 2021-06 Yes 1291 20mg 20 mg, Univ ers (XARELTO) 2 Oral, QHS, ity of tablet 20 05:30: First dose [place] mg 00 on [facility] 06/17/22 Branch at 2330, Until Discontinu ed, Routine methocarbam 2021-06 Yes 750mg 750 mg, Un [place] 2 Oral, BID, ity of (ROBAXIN) 05:30: First dose [place] tablet 750 00 on [facility] Medical mg 06/17/22 Branch at 2330, Until Discontinu ed, Routine atorvastati 2021-06 Yes 40mg 40 mg, Univ ers n (LIPITOR) 2 Oral, QHS, it y of tablet 40 05:30: First dose [place] mg 00 on [facility] 06/17/22 Branch at 2330, Until Discontinu ed, Routine bumetanide 2021-06 No 4mg 4 mg, Unive rs (BUMEX) 2-27 06-18 Oral, ity of tablet 4 mg 05:30: 17:57 QAM+PM, [place] 00 :16 First dose Medical on [facility] Branch 06/17/22 at 2330, Until Discontinu ed, Routine cyanocobala 2021-06 Yes 1000ug 1,000 mcg, Univers min (DODEX) 08-19 Intramuscu it y of injection 05:27: lar, Q24H, [place] 1,000 mcg 18 First dose Medi marium on Mon Branch 06/17/22 at 2330, Until Discontinu ed, Routine nitroglycer 2021-06- No .4mg 0.4 mg, Un [place] 08-19 Sublingual ity of (NITROSTAT) 02:45: 02:32 , ONCE, 1 [place] sublingual 00 :00 dose, On Medic al tablet 0.4 Mon Branch mg 06/17/22 at 2045, LIVIA nitroglycer 2021-06- No .4mg 0.4 mg, Un [place] in 08-19 Sublingual ity of (NITROSTAT) 01:45: 01:37 , ONCE, 1 [place] sublingual 00 :00 dose, On Medic al tablet 0.4 Mon Branch mg 06/17/22 at 1945, LIVIA ondansetron 2021-06- No 4mg 4 mg, Slow Univers (ZOFRAN 08-19 IV Push, ity of (PF)) 01:45: 01:37 ONCE, 1 [place] injection 4 00 :00 dose, On Medi marium mg [facility] Branch 06/17/22 at 1945, LIVIA aspirin 325 2021-06- No [id number] 325mg Take 1 Univers mg tablet 08-19 tablet by ity of 00:00: 05:59 mouth in [place] 00 :00 the Medical morning Branch for 30 days. bumetanide 2021-06- No [id number] 2mg Take 1 Univers 2 mg tablet 08-19 tablet by it y of 00:00: 05:59 mouth [place] 00 :00 every Medical morning Branch and evening for 30 days. aspirin 325 2021-06- No [id number] 325mg Take 1 Univers mg tablet 08-19 tablet by ity of 00:00: 05:59 mouth in [place] 00 :00 the Medical morning Branch for 30 days. bumetanide 2021-06- No [id number] 2mg Take 1 Univers 2 mg tablet 08-19 tablet by it y of 00:00: 05:59 mouth [place] 00 :00 every Medical morning Branch and evening for 30 days. aspirin 325 2021-06- No [id number] 325mg Take 1 Univers mg tablet 08-19 tablet by ity of 00:00: 05:59 mouth in [place] 00 :00 the Medical morning Branch for 30 days. bumetanide 2021-06- No [id number] 2mg Take 1 Univers 2 mg tablet 08-19 tablet by it y of 00:00: 05:59 mouth [place] 00 :00 every Medical morning Branch and evening for 30 days. aspirin 325 2021-06- No [id number] 325mg Take 1 Univers mg tablet 08-19 tablet by ity of 00:00: 00:00 mouth in [place] 00 :00 the Medical morning Branch for 30 days. bumetanide 2021-06- No [id number] 2mg Take 1 Univers 2 mg tablet 08-19 tablet by it y of 00:00: 00:00 mouth [place] 00 :00 every Medical morning Branch and evening for 30 days. aspirin 325 2021-06- No [id number] 325mg Take 1 Univers mg tablet 08-19 tablet by ity of 00:00: 00:00 mouth in [place] 00 :00 the Medical morning Branch for 30 days. bumetanide 2021-06- No [id number] 2mg Take 1 Univers 2 mg tablet 08-19 tablet by it y of 00:00: 00:00 mouth [place] 00 :00 every Medical morning Branch and evening for 30 days. aspirin 325 2021-06- No [id number] 325mg Take 1 Univers mg tablet 08-19 tablet by ity of 00:00: 00:00 mouth in [place] 00 :00 the Medical morning Branch for 30 days. bumetanide 2021-06- No [id number] 2mg Take 1 Univers 2 mg tablet 08-19 tablet by it y of 00:00: 00:00 mouth [place] 00 :00 every Medical morning Branch and evening for 30 days. aspirin 325 2021-06- No [id number] 325mg Take 1 Univers mg tablet 08-19- tablet by ity of 00:00: 00:00 mouth in [place] 00 :00 the Medical morning Branch for 30 days. bumetanide 2021-06- No [id number] 2mg Take 1 Univers 2 mg tablet 08-19 tablet by it y of 00:00: 00:00 mouth [place] 00 :00 every Medical morning Branch and evening for 30 days. aspirin 325 2021-06- No [id number] 325mg Take 1 Univers mg tablet 08-19- tablet by ity of 00:00: 00:00 mouth in [place] 00 :00 the Medical morning Branch for 30 days. bumetanide 2021-06- No [id number] 2mg Take 1 Univers 2 mg tablet 08-19- tablet by it y of 00:00: 00:00 mouth [place] 00 :00 every Medical morning Branch and evening for 30 days. desvenlafax 2021-06 Yes [id number] 200mg Take 2 Univers ine 2-22 tablets by ity of succinate 00:00: mouth in [place] [facility] (PRISTIQ) 00 the Medical 100 mg 24 morning. Branch hr tablet ARIPiprazol 2021-06 Yes [id number] 15mg Take 1 Univers e 15 mg 2-22 tablet by ity of tablet 00:00: mouth in [place] 00 the Medical morning. Branch buPROPion 2021-06 Yes [id number] 150mg Take 1 U nivers XL 150 mg 2-22 tablet by ity o f 24 hr 00:00: mouth in [place] tablet 00 the Medical morning. Branch desvenlafax 2021-06 Yes [id number] 200mg Take 2 Univers ine 2-22 tablets by ity of succinate 00:00: mouth in [facility] s (PRISTIQ) 00 the Medical 100 mg 24 morning. Branch hr tablet ARIPiprazol 2021-06 Yes [id number] 15mg Take 1 Univers e 15 mg 2-22 tablet by ity of tablet 00:00: mouth in [place] 00 the Medical morning. Branch buPROPion 2021-06 Yes [id number] 150mg Take 1 U nivers XL 150 mg 2-22 tablet by ity o f 24 hr 00:00: mouth in [place] tablet 00 the Medical morning. Branch desvenlafax 2021-06 Yes [id number] 200mg Take 2 Univers ine 2-22 tablets by ity of succinate 00:00: mouth in [facility] s (PRISTIQ) 00 the Medical 100 mg 24 morning. Branch hr tablet ARIPiprazol 2021-06 Yes [id number] 15mg Take 1 Univers e 15 mg 2-22 tablet by ity of tablet 00:00: mouth in [place] 00 the Medical morning. Branch buPROPion 2021-06 Yes [id number] 150mg Take 1 U nivers XL 150 mg 2-22 tablet by ity o f 24 hr 00:00: mouth in [place] tablet 00 the Medical morning. Branch desvenlafax 2021-06 Yes [id number] 200mg Take 2 Univers ine 2-22 tablets by ity of succinate 00:00: mouth in [facility] s (PRISTIQ) 00 the Medical 100 mg 24 morning. Branch hr tablet ARIPiprazol 2021-06 Yes [id number] 15mg Take 1 Univers e 15 mg 2-22 tablet by ity of tablet 00:00: mouth in [place] 00 the Medical morning. Branch buPROPion 2021-06 Yes [id number] 150mg Take 1 U nivers XL 150 mg 2-22 tablet by ity o f 24 hr 00:00: mouth in [place] tablet 00 the Medical morning. Branch desvenlafax 2021-06 Yes [id number] 200mg Take 2 Univers ine 2-22 tablets by ity of succinate 00:00: mouth in [place] [facility] (PRISTIQ) 00 the Medical 100 mg 24 morning. Branch hr tablet ARIPiprazol 2021-06 Yes [id number] 15mg Take 1 Univers e 15 mg 2-22 tablet by ity of tablet 00:00: mouth in [place] 00 the Medical morning. Branch buPROPion 2021-06 Yes [id number] 150mg Take 1 U nivers XL 150 mg 2-22 tablet by ity o f 24 hr 00:00: mouth in [place] tablet 00 the Medical morning. Branch desvenlafax 2021-06 Yes [id number] 200mg Take 2 Univers ine 2-22 tablets by ity of succinate 00:00: mouth in [facility] s (PRISTIQ) 00 the Medical 100 mg 24 morning. Branch hr tablet ARIPiprazol 2021-06 Yes [id number] 15mg Take 1 Univers e 15 mg 2-22 tablet by ity of tablet 00:00: mouth in [place] 00 the Medical morning. Branch buPROPion 2021-06 Yes [id number] 150mg Take 1 U nivers XL 150 mg 2-22 tablet by ity o f 24 hr 00:00: mouth in [place] tablet 00 the Medical morning. Branch desvenlafax 2021-06 Yes [id number] 200mg Take 2 Univers ine 2-22 tablets by ity of succinate 00:00: mouth [place] (PRISTIQ[place] 00 the Medical 100 mg 24 morning. [place] hr tablet ARIPiprazol 2021-06 Yes [id number] 15mg Take 1 Univers e 15 mg 2-22 tablet by ity of tablet 00:00: mouth in [place] 00 the Medical morning. Branch buPROPion 2021-06 Yes [id number] 150mg Take 1 U nivers XL 150 mg 2-22 tablet by ity o f 24 hr 00:00: mouth in [place] tablet 00 the Medical morning. Branch desvenlafax 2021-06 Yes [id number] 200mg Take 2 Univers ine 2-22 tablets by ity of succinate 00:00: mouth [place] (PRISTIQ[place] 00 the Medical 100 mg 24 morning. [place] hr tablet ARIPiprazol 2021-06 Yes [id number] 15mg Take 1 Univers e 15 mg 2-22 tablet by ity of tablet 00:00: mouth in [place] 00 the Medical morning. Branch buPROPion 2021-06 Yes [id number] 150mg Take 1 U nivers XL 150 mg 2-22 tablet by ity o f 24 hr 00:00: mouth in [place] tablet 00 the Medical morning. Branch desvenlafax 2021-06 Yes [id number] 200mg Take 2 Univers ine 2-22 tablets by ity of succinate 00:00: [place] (PRISTIQ[place] 00 the Medical 100 mg 24 morning. [facility] tablet ARIPiprazol 2021-06 Yes [id number] 15mg Take 1 Univers e 15 mg 2-22 tablet by ity of tablet 00:00: mouth in [place] 00 the Medical morning. Branch buPROPion 2021-06 Yes [id number] 150mg Take 1 U nivers XL 150 mg 2-22 tablet by ity o f 24 hr 00:00: mouth in [place] tablet 00 the Medical morning. Branch desvenlafax 2021-06 Yes [id number] 200mg Take 2 Univers ine 2-22 tablets by ity of succinate 00:00: [place] (PRISTIQ) 00 the Medical 100 mg 24 morning. Branch hr tablet ARIPiprazol 2021-06 Yes [id number] 15mg Take 1 Univers e 15 mg 2-22 tablet by ity of tablet 00:00: mouth in [place] 00 the Medical morning. Branch buPROPion 2021-06 Yes [id number] 150mg Take 1 U nivers XL 150 mg 2-22 tablet by ity o f 24 hr 00:00: mouth in [place] tablet 00 the Medical morning. Branch desvenlafax 2021-06 Yes [id number] 200mg Take 2 Univers ine 2-22 tablets by ity of succinate 00:00: [place] (PRISTIQ[place] 00 the Medical 100 mg 24 morning. Branch hr tablet ARIPiprazol 2021-06 Yes [id number] 15mg Take 1 Univers e 15 mg 2-22 tablet by ity of tablet 00:00: mouth in [place] 00 the Medical morning. Branch buPROPion 2021-06 Yes [id number] 150mg Take 1 U nivers XL 150 mg 2-22 tablet by ity o f 24 hr 00:00: mouth in [place] tablet 00 the Medical morning. Branch desvenlafax 2021-06 Yes [id number] 200mg Take 2 Univers ine 2-22 tablets by ity of succinate 00:00: mouth in [place] [facility] (PRISTIQ) 00 the Medical 100 mg 24 morning. Branch hr tablet ARIPiprazol 2021-06 Yes [id number] 15mg Take 1 Univers e 15 mg 2-22 tablet by ity of tablet 00:00: mouth in [place] 00 the Medical morning. Branch buPROPion 2021-06 Yes [id number] 150mg Take 1 U nivers XL 150 mg 2-22 tablet by ity o f 24 hr 00:00: mouth in [place] tablet 00 the Medical morning. Branch desvenlafax 2021-06 Yes [id number] 200mg Take 2 Univers ine 2-22 tablets by ity of succinate 00:00: [place] (PRISTIQ[place] 00 the Medical 100 mg 24 morning. Branch hr tablet ARIPiprazol 2021-06 Yes [id number] 15mg Take 1 Univers e 15 mg 2-22 tablet by ity of tablet 00:00: mouth in [place] 00 the Medical morning. Branch buPROPion 2021-06 Yes [id number] 150mg Take 1 U nivers XL 150 mg 2-22 tablet by ity o f 24 hr 00:00: mouth in [place] tablet 00 the Medical morning. Branch desvenlafax 2021-06 Yes [id number] 200mg Take 2 Univers ine 2-22 tablets by ity of succinate 00:00: [place] (PRISTIQ) 00 the Medical 100 mg 24 morning. [place] hr tablet ARIPiprazol 2021-06 Yes [id number] 15mg Take 1 [facility] 15 mg 2-22 tablet by [facility] of tablet 00:00: mouth in [place] 00 the Medical morning. Branch buPROPion 2021-06 Yes [id number] 150mg Take 1 [facility] XL 150 mg 2-22 tablet by ity o f 24 hr 00:00: mouth in [place] tablet 00 the Medical morning. Branch desvenlafax 2021-06 Yes [id number] 200mg Take 2 [facility] 2-22 tablets by [facility] [place] 00:[place] (PRIST[facility] 00 the Medical 100 mg 24 morning. [place] hr tablet ARIPiprazol 2021-06 Yes [id number] 15mg Take 1 [facility] 15 mg 2-22 tablet by it[facility] of tablet 00:00: mouth in [place] 00 the Medical morning. Branch buPROPion 2021-06 Yes [id number] 150mg Take 1 [facility] XL 150 mg 2-22 tablet by ity o f 24 hr 00:00: mouth in [place] tablet 00 the Medical morning. Branch desvenlafax 2021-06 Yes [id number] 200mg Take 2 [facility] 2-22 tablets by [facility] succ[place] 00:00[place] (PRISTIQ[place] 00 the Medical 100 mg 24 morning. [place] hr tablet ARIPiprazol 2021-06 Yes [id number] 15mg Take 1 [facility] 15 mg 2-22 tablet by it[facility] of tablet 00:00: mouth in [place] 00 the Medical morning. Branch buPROPion 2021-06 Yes [id number] 150mg Take 1 [facility] XL 150 mg 2-22 tablet by ity o f 24 hr 00:00: mouth in [place] tablet 00 the Medical morning. Branch desvenlafax 2021-06 Yes [id number] 200mg Take 2 [facility] 2-22 tablets by [facility] [place] 00 the Medical 100 mg 24 morning. Branch hr tablet ARIPiprazol 2021-06 Yes [id number] 15mg Take 1 [facility] 15 mg 2-22 tablet by it[facility] of tablet 00:00: mouth in [place] 00 the Medical morning. Branch buPROPion 2021-06 Yes [id number] 150mg Take 1 [facility] XL 150 mg 2-22 tablet by ity o f 24 hr 00:00: mouth in [place] tablet 00 the Medical morning. Branch desvenlafax 2021-06 Yes [id number] 200mg Take 2 [facility] 2-22 tablets by [facility] [place] 00:[place] ([facility] 00 the Medical 100 mg 24 morning. Branch hr tablet ARIPiprazol 2021-06 Yes [id number] 15mg Take 1 [facility] 15 mg 2-22 tablet by it[facility] of tablet 00:00: mouth in [place] 00 the Medical morning. Branch buPROPion 2021-06 Yes [id number] 150mg Take 1 [facility] XL 150 mg 2-22 tablet by ity o f 24 hr 00:00: mouth in [place] tablet 00 the Medical morning. Branch desvenlafax 2021-06 Yes [id number] 200mg Take 2 [facility] in[facility] 2-22 tablets by ity of succinate 00:00: mouth in [place] [facility] (PRISTIQ) 00 the Medical 100 mg 24 morning. Branch hr tablet ARIPiprazol 2021-06 Yes [id number] 15mg Take 1 [facility] 15 mg 2-22 tablet by ity of tablet 00:00: mouth in [place] 00 the Medical morning. Branch buPROPion 2021-06 Yes [id number] 150mg Take 1 [facility] XL 150 mg 2-22 tablet by ity o f 24 hr 00:00: mouth in [place] tablet 00 the Medical morning. Branch desvenlafax 2021-06 Yes [id number] 200mg Take 2 [facility] 2-22 tablets by [facility] [place] ([facility] 00 the Medical 100 mg 24 morning. Branch hr tablet ARIPiprazol 2021-06 Yes [id number] 15mg Take 1 [facility] 15 mg 2-22 tablet by ity of tablet 00:00: mouth in [place] 00 the Medical morning. Branch buPROPion 2021-06 Yes [id number] 150mg Take 1 [facility] XL 150 mg 2-22 tablet by ity o f 24 hr 00:00: mouth in [place] tablet 00 the Medical morning. Branch desvenlafax 2021-06 Yes [id number] 200mg Take 2 [facility] in[facility] 2-22 tablets by [facility] succinate 00:00: [place] (PRISTIQ[place] 00 the Medical 100 mg 24 morning. Branch hr tablet ARIPiprazol 2021-06 Yes [id number] 15mg Take 1 [facility] 15 mg 2-22 tablet by ity of tablet 00:00: mouth in [place] 00 the Medical morning. Branch buPROPion 2021-06 Yes [id number] 150mg Take 1 [facility] XL 150 mg 2-22 tablet by ity o f 24 hr 00:00: mouth in [place] tablet 00 the Medical morning. Branch desvenlafax 2021-06 Yes [id number] 200mg Take 2 [facility] in[facility] 2-22 tablets by [facility] succinate 00:00: [place] (PRISTIQ[place] 00 the Medical 100 mg 24 morning. [place] hr tablet ARIPiprazol 2021-06 Yes [id number] 15mg Take 1 [facility] 15 mg 2-22 tablet by ity of tablet 00:00: mouth in [place] 00 the Medical morning. Branch buPROPion 2021-06 Yes [id number] 150mg Take 1 [facility] XL 150 mg 2-22 tablet by ity o f 24 hr 00:00: mouth in [place] tablet 00 the Medical morning. Branch desvenlafax 2021-06- No [id number] 200mg Take 2 [facility] ine 2-22 02-09 tablets by ity of succinate 00:00: 00:00 mouth in [place] as (PRISTIQ) 00 :00 the Medical 100 mg 24 morning. Branch hr tablet ARIPiprazol 2021-06- No [id number] 15mg Take 1 [facility] 15 mg 2-22 02-09 tablet by ity of tablet 00:00: 00:00 mouth in [place] 00 :00 the Medical morning. Branch buPROPion 2021-06- No [id number] 150mg Take 1 [facility] XL 150 mg 2-22 02-09 tablet by ity of 24 hr 00:00: 00:00 mouth in [place] tablet 00 :00 the Medical morning. Branch desvenlafax 2021-06- No [id number] 200mg Take 2 [facility] ine 08-14-09 tablets by ity of succinate 00:00: 00:00 mouth in [place] as (PRISTIQ) 00 :00 the Medical 100 mg 24 morning. Branch hr tablet ARIPiprazol 2021-06- No [id number] 15mg Take 1 [facility] 15 mg 08-14- tablet by ity of tablet 00:00: 00:00 mouth in [place] 00 :00 the Medical morning. Branch buPROPion 2021-06- No [id number] 150mg Take 1 [facility] XL 150 mg 08-14- tablet by ity of 24 hr 00:00: 00:00 mouth in [place] tablet 00 :00 the Medical morning. [place] desvenlafax 2021-06- No [id number] 200mg Take 2 [facility] ine 08-14- tablets by ity of succinate 00:00: 00:00 mouth in [place] as (PRISTIQ) 00 :00 the Medical 100 mg 24 morning. Branch hr tablet ARIPiprazol 2021-06- No [id number] 15mg Take 1 [facility] 15 mg 08-14- tablet by ity of tablet 00:00: 00:00 mouth in [place] 00 :00 the Medical morning. [place] buPROPion 2021-06- No [id number] 150mg Take 1 [facility] XL 150 mg 08-14- tablet by ity of 24 hr 00:00: 00:00 mouth in [place] tablet 00 :00 the Medical morning. [place] desvenlafax 2021-06- No [id number] 200mg Take 2 [facility] ine 08-14-09 tablets by ity of succinate 00:00: 00:00 mouth in [place] as (PRISTIQ) 00 :00 the Medical 100 mg 24 morning. Branch hr tablet ARIPiprazol 2021-06- No [id number] 15mg Take 1 [facility] 15 mg 08-14-09 tablet by ity of tablet 00:00: 00:00 mouth in [place] 00 :00 the Medical morning. Branch buPROPion 2021-06- No [id number] 150mg Take 1 [facility] XL 150 mg 08-14-09 tablet by ity of 24 hr 00:00: 00:00 mouth in [place] tablet 00 :00 the Medical morning. Branch desvenlafax 2021-06- No [id number] 200mg Take 2 [facility] ine 08-14- tablets by ity of succinate 00:00: 00:00 mouth in [place] as (PRISTIQ) 00 :00 the Medical 100 mg 24 morning. Branch hr tablet ARIPiprazol 2021-06- No [id number] 15mg Take 1 [facility] e 15 mg 08-14- tablet by ity of tablet 00:00: 00:00 mouth in [place] 00 :00 the Medical morning. Branch buPROPion 2021-06- No [id number] 150mg Take 1 [facility] XL 150 mg 08-14- tablet by ity of 24 hr 00:00: 00:00 mouth in [place] tablet 00 :00 the Medical morning. [place] desvenlafax 2021-06- No [id number] 200mg Take 2 [facility] ine 08-14- tablets by ity of succinate 00:00: 00:00 mouth in [facility] [place] as (PRISTIQ) 00 :00 the Medical 100 mg 24 morning. Branch hr tablet ARIPiprazol 2021-06- No [id number] 15mg Take 1 [facility] e 15 mg 08-14- tablet by ity of tablet 00:00: 00:00 mouth in [place] 00 :00 the Medical morning. Branch buPROPion 2021-06- No [id number] 150mg Take 1 [facility] XL 150 mg 08-14- tablet by ity of 24 hr 00:00: 00:00 mouth in [place] tablet 00 :00 the Medical morning. Branch desvenlafax 2021-06- No [id number] 200mg Take 2 [facility] ine 08-14-09 tablets by ity of succinate 00:00: 00:00 mouth in [facility] [place] as (PRISTIQ) 00 :00 the Medical 100 mg 24 morning. Branch hr tablet ARIPiprazol 2021-06- No [id number] 15mg Take 1 [facility] e 15 mg 08-14- tablet by ity of tablet 00:00: 00:00 mouth in [place] 00 :00 the Medical morning. Branch buPROPion 2021-06- No [id number] 150mg Take 1 [facility] XL 150 mg 08-14- tablet by ity of 24 hr 00:00: 00:00 mouth in [place] tablet 00 :00 the Medical morning. Branch desvenlafax 2021-06- No [id number] 200mg Take 2 [facility] ine 2-14 08-09 tablets by ity of succinate 00:00: 00:00 mouth in [place] as (PRISTIQ) 00 :00 the Medical 100 mg 24 morning. Branch hr tablet ARIPiprazol 2021-06- No [id number] 15mg Take 1 [facility] e 15 mg 2-14 08-09 tablet by ity of tablet 00:00: 00:00 mouth in [place] 00 :00 the Medical morning. Branch buPROPion 2021-06- No [id number] 150mg Take 1 [facility] XL 150 mg 08-14- tablet by ity of 24 hr 00:00: 00:00 mouth in [place] tablet 00 :00 the Medical morning. [place] desvenlafax 2021-06- No [id number] 200mg Take 2 [facility] ine 08-14- tablets by ity of succinate 00:00: 00:00 mouth in [place] as (PRISTIQ) 00 :00 the Medical 100 mg 24 morning. Branch hr tablet ARIPiprazol 2021-06- No [id number] 15mg Take 1 [facility] e 15 mg 08-14- tablet by ity of tablet 00:00: 00:00 mouth in [place] 00 :00 the Medical morning. [place] buPROPion 2021-06- No [id number] 150mg Take 1 [facility] XL 150 mg 08-14- tablet by ity of 24 hr 00:00: 00:00 mouth in [place] tablet 00 :00 the Medical morning. Branch desvenlafax 2021-06- No [id number] 200mg Take 2 [facility] ine 2-14 08-09 tablets by ity of succinate 00:00: 00:00 mouth in [place] as (PRISTIQ) 00 :00 the Medical 100 mg 24 morning. Branch hr tablet ARIPiprazol 2021-06- No [id number] 15mg Take 1 [facility] e 15 mg 2-14 08-09 tablet by ity of tablet 00:00: 00:00 mouth in [place] 00 :00 the Medical morning. Branch buPROPion 2021-06- No [id number] 150mg Take 1 [facility] XL 150 mg 08-14- tablet by ity of 24 hr 00:00: 00:00 mouth in [place] tablet 00 :00 the Medical morning. [place] desvenlafax 2021-06- No [id number] 200mg Take 2 [facility] ine 08-14-09 tablets by ity of succinate 00:00: 00:00 mouth in [place] as (PRISTIQ) 00 :00 the Medical 100 mg 24 morning. Branch hr tablet ARIPiprazol 2021-06- No [id number] 15mg Take 1 [facility] e 15 mg 08-14- tablet by ity of tablet 00:00: 00:00 mouth in [place] 00 :00 the Medical morning. [place] buPROPion 2021-06- No [id number] 150mg Take 1 [facility] XL 150 mg 08-14 tablet by ity of 24 hr 00:00: 00:00 mouth in [place] tablet 00 :00 the Medical morning. [place] desvenlafax 2021-06- No [id number] 200mg Take 2 [facility] ine 08-14- tablets by ity of succinate 00:00: 00:00 mouth in [place] as (PRISTIQ) 00 :00 the Medical 100 mg 24 morning. Branch hr tablet ARIPiprazol 2021-06- No [id number] 15mg Take 1 [facility] e 15 mg 08-14 tablet by ity of tablet 00:00: 00:00 mouth in [place] 00 :00 the Medical morning. [place] buPROPion 2021-06- No [id number] 150mg Take 1 [facility] XL 150 mg 08-14- tablet by ity of 24 hr 00:00: 00:00 mouth in [place] tablet 00 :00 the Medical morning. [place] clonazePAM 2021-06 Yes [id number] Take 1 [facility] nivers 1 mg tablet 2-06 pill PO in it y of 00:00: the AM, 1 [place] 00 PO in the Medical afternoon, Branch 1 pill PO in the evening. May take additional 1/2 pill as needed for acute anxiety. clonazePAM 2021-06 Yes [id number] Take 1 [facility] nivers 1 mg tablet 2-06 pill PO in it y of 00:00: the AM, 1 [place] 00 PO in the Medical afternoon, Branch 1 pill PO in the evening. May take additional 1/2 pill as needed for acute anxiety. clonazePAM 2021-06 Yes [id number] Take 1 [facility] nivers 1 mg tablet 2-06 pill PO in it y of 00:00: the AM, 1 [place] 00 PO in the Medical afternoon, Branch 1 pill PO in the evening. May take additional 1/2 pill as needed for acute anxiety. clonazePAM 2021-06 Yes [id number] Take 1 [facility] nivers 1 mg tablet 2-06 pill PO in it y of 00:00: the AM, 1 [place] 00 PO in the Medical afternoon, Branch 1 pill PO in the evening. May take additional 1/2 pill as needed for acute anxiety. clonazePAM 2021-06 Yes [id number] Take 1 [facility] nivers 1 mg tablet 2-06 pill PO in it y of 00:00: the AM, 1 [place] 00 PO in the Medical afternoon, Branch 1 pill PO in the evening. May take additional 1/2 pill as needed for acute anxiety. clonazePAM 2021-06 Yes [id number] Take 1 [facility] nivers 1 mg tablet 2-06 pill PO in it y of 00:00: the AM, 1 [place] 00 PO in the Medical afternoon, Branch 1 pill PO in the evening. May take additional 1/2 pill as needed for acute anxiety. clonazePAM 2021-06 Yes [id number] Take 1 [facility] nivers 1 mg tablet 2-06 pill PO in it y of 00:00: the AM, 1 [place] 00 PO in the Medical afternoon, Branch 1 pill PO in the evening. May take additional 1/2 pill as needed for acute anxiety. clonazePAM 2021-06 Yes [id number] Take 1 [facility] nivers 1 mg tablet 2-06 pill PO in it y of 00:00: the AM, 1 [place] 00 PO in the Medical afternoon, Branch 1 pill PO in the evening. May take additional 1/2 pill as needed for acute anxiety. clonazePAM 2021-06 Yes [id number] Take 1 [facility] nivers 1 mg tablet 2-06 pill PO in it y of 00:00: the AM, 1 [place] 00 PO in the Medical afternoon, Branch 1 pill PO in the evening. May take additional 1/2 pill as needed for acute anxiety. clonazePAM 2021-06 Yes [id number] Take 1 [facility] nivers 1 mg tablet 2-06 pill PO in it y of 00:00: the AM, 1 [place] 00 PO in the Medical afternoon, Branch 1 pill PO in the evening. May take additional 1/2 pill as needed for acute anxiety. clonazePAM 2021-06 Yes [id number] Take 1 [facility] nivers 1 mg tablet 2-06 pill PO in it y of 00:00: the AM, 1 [place] 00 PO in the Medical afternoon, Branch 1 pill PO in the evening. May take additional 1/2 pill as needed for acute anxiety. clonazePAM 2021-06 Yes [id number] Take 1 [facility] nivers 1 mg tablet 2-06 pill PO in it y of 00:00: the AM, 1 [place] 00 PO in the Medical afternoon, Branch 1 pill PO in the evening. May take additional 1/2 pill as needed for acute anxiety. clonazePAM 2021-06 Yes [id number] Take 1 [facility] nivers 1 mg tablet 2-06 pill PO in it y of 00:00: the AM, 1 [place] 00 PO in the Medical afternoon, Branch 1 pill PO in the evening. May take additional 1/2 pill as needed for acute anxiety. clonazePAM 2021-06- No [id number] Take 1 [facility] 1 mg tablet 2-11 21-02 pill PO in i ty of 00:00: 00:00 the AM, 1 [place] 00 :00 PO in the Medical afternoon, Branch 1 pill PO in the evening. May take additional 1/2 pill as needed for acute anxiety. clonazePAM 2021-06- No [id number] Take 1 [facility] 1 mg tablet 2-11 21-02 pill PO in i ty of 00:00: 00:00 the AM, 1 [place] 00 :00 PO in the Medical afternoon, Branch 1 pill PO in the evening. May take additional 1/2 pill as needed for acute anxiety. clonazePAM 2021-06- No [id number] Take 1 [facility] 1 mg tablet 2-11 21-02 pill PO in i ty of 00:00: 00:00 the AM, 1 [place] 00 :00 PO in the Medical afternoon, Branch 1 pill PO in the evening. May take additional 1/2 pill as needed for acute anxiety. clonazePAM 2021-06- No [id number] Take 1 [facility] 1 mg tablet 2-11 21-02 pill PO in i ty of 00:00: 00:00 the AM, 1 [place] 00 :00 PO in the Medical afternoon, Branch 1 pill PO in the evening. May take additional 1/2 pill as needed for acute anxiety. clonazePAM 2021-06 2023- No [id number] Take 1 [facility] 1 mg tablet 07-29 pill PO in i ty of 00:00: 00:00 the AM, 1 [place] 00 :00 PO in the Medical afternoon, Branch 1 pill PO in the evening. May take additional 1/2 pill as needed for acute anxiety. pantoprazol 2021-06 Yes [id number] 40mg Take 1 [facility] e 40 mg EC 1-29 tablet by ity of tablet 00:00: mouth in [place] [address] the Medical morning Branch and 1 tablet in the evening. pantoprazol 2021-06 Yes [id number] 40mg Take 1 [facility] e 40 mg EC 1-29 tablet by ity of tablet 00:00: mouth in [place] [address] the [facility] morning [place] and 1 tablet in the evening. pantoprazol 2021-06 Yes [id number] 40mg Take 1 [facility] e 40 mg EC 1-29 tablet by ity of tablet 00:00: mouth in [place] [address] the [facility] morning Branch and 1 tablet in the evening. pantoprazol 2021-06 Yes [id number] 40mg Take 1 [facility] e 40 mg EC 1-29 tablet by ity of tablet 00:00: mouth in [place] [address] the [facility] morning [place] and 1 tablet in the evening. pantoprazol 2021-06 Yes [id number] 40mg Take 1 [facility] e 40 mg EC 1-29 tablet by ity of tablet 00:00: mouth in [place] [address] the [facility] morning [place] and 1 tablet in the evening. pantoprazol 2021-06 Yes [id number] 40mg Take 1 [facility] e 40 mg EC 1-29 tablet by ity of tablet 00:00: mouth in [place] [address] the [facility] morning [place] and 1 tablet in the evening. pantoprazol 2021-06 Yes [id number] 40mg Take 1 [facility] e 40 mg EC 1-29 tablet by ity of tablet 00:00: mouth in [place] [address] the [facility] morning [place] and 1 tablet in the evening. pantoprazol 2021-06 Yes [id number] 40mg Take 1 [facility] e 40 mg EC 1-29 tablet by ity of tablet 00:00: mouth in [place] [address] the [facility] morning [place] and 1 tablet in the evening. pantoprazol 2021-06 Yes [id number] 40mg Take 1 [facility] e 40 mg EC 1-29 tablet by ity of tablet 00:00: mouth in [place] 00 the Medical morning Branch and 1 tablet in the evening. pantoprazol 2021-06 Yes [id number] 40mg Take 1 [facility] e 40 mg EC 1-29 tablet by ity of tablet 00:00: mouth in [place] 00 the Medical morning Branch and 1 tablet in the evening. pantoprazol 2021-06 Yes [id number] 40mg Take 1 [facility] e 40 mg EC 1-29 tablet by ity of tablet 00:00: mouth in [place] 00 the Medical morning Branch and 1 tablet in the evening. pantoprazol 2021-06 Yes [id number] 40mg Take 1 [facility] e 40 mg EC 1-29 tablet by ity of tablet 00:00: mouth in [place] 00 the Medical morning Branch and 1 tablet in the evening. pantoprazol 2021-06 Yes [id number] 40mg Take 1 [facility] e 40 mg EC 1-29 tablet by ity of tablet 00:00: mouth in [place] 00 the Medical morning Branch and 1 tablet in the evening. pantoprazol 2021-06 Yes [id number] 40mg Take 1 [facility] e 40 mg EC 1-29 tablet by ity of tablet 00:00: mouth in [place] 00 the Medical morning Branch and 1 tablet in the evening. pantoprazol 2021-06 Yes [id number] 40mg Take 1 [facility] e 40 mg EC 1-29 tablet by ity of tablet 00:00: mouth in [place] 00 the Medical morning Branch and 1 tablet in the evening. pantoprazol 2021-06 Yes [id number] 40mg Take 1 [facility] e 40 mg EC 1-29 tablet by ity of tablet 00:00: mouth in [place] 00 the Medical morning Branch and 1 tablet in the evening. pantoprazol 2021-06 Yes [id number] 40mg Take 1 [facility] e 40 mg EC 1-29 tablet by ity of tablet 00:00: mouth in [place] 00 the Medical morning Branch and 1 tablet in the evening. pantoprazol 2021-06 Yes [id number] 40mg Take 1 [facility] e 40 mg EC 1-29 tablet by ity of tablet 00:00: mouth in [place] [address] the Medical morning Branch and 1 tablet in the evening. pantoprazol 2021-06 Yes [id number] 40mg Take 1 [facility] e 40 mg EC 1-29 tablet by ity of tablet 00:00: mouth in [place] 00 the Medical morning Branch and 1 tablet in the evening. pantoprazol 2021-06 Yes [id number] 40mg Take 1 [facility] e 40 mg EC 1-29 tablet by ity of tablet 00:00: mouth in [place] 00 the Medical morning Branch and 1 tablet in the evening. pantoprazol 2021-06 Yes [id number] 40mg Take 1 [facility] e 40 mg EC 1-29 tablet by ity of tablet 00:00: mouth in [place] 00 the Medical morning Branch and 1 tablet in the evening. pantoprazol 2021-06 Yes [id number] 40mg Take 1 [facility] e 40 mg EC 1-29 tablet by ity of tablet 00:00: mouth in [place] 00 the Medical morning Branch and 1 tablet in the evening. pantoprazol 2021-06 Yes [id number] 40mg Take 1 [facility] e 40 mg EC 1-29 tablet by ity of tablet 00:00: mouth in [place] 00 the Medical morning Branch and 1 tablet in the evening. pantoprazol 2021-06 Yes [id number] 40mg Take 1 [facility] e 40 mg EC 1-29 tablet by ity of tablet 00:00: mouth in [place] 00 the Medical morning Branch and 1 tablet in the evening. pantoprazol 2021-06 Yes [id number] 40mg Take 1 [facility] e 40 mg EC 1-29 tablet by ity of tablet 00:00: mouth in [place] 00 the Medical morning Branch and 1 tablet in the evening. pantoprazol 2021-06 Yes [id number] 40mg Take 1 [facility] e 40 mg EC 1-29 tablet by ity of tablet 00:00: mouth in [place] 00 the Medical morning Branch and 1 tablet in the evening. pantoprazol 2021-06 Yes [id number] 40mg Take 1 [facility] e 40 mg EC 1-29 tablet by ity of tablet 00:00: mouth in [place] 00 the Medical morning Branch and 1 tablet in the evening. pantoprazol 2021-06 Yes [id number] 40mg Take 1 [facility] e 40 mg EC 1-29 tablet by ity of tablet 00:00: mouth in [place] 00 the Medical morning Branch and 1 tablet in the evening. pantoprazol 2021-06 Yes [id number] 40mg Take 1 [facility] e 40 mg EC 1-29 tablet by ity of tablet 00:00: mouth in [place] 00 the Medical morning Branch and 1 tablet in the evening. pantoprazol 2021-06 Yes [id number] 40mg Take 1 [facility] e 40 mg EC 1-29 tablet by ity of tablet 00:00: mouth in [place] 00 the Medical morning Branch and 1 tablet in the evening. pantoprazol 2021-06 Yes [id number] 40mg Take 1 [facility] e 40 mg EC 1-29 tablet by ity of tablet 00:00: mouth in [place] 00 the Medical morning Branch and 1 tablet in the evening. pantoprazol 2021-06 Yes [id number] 40mg Take 1 [facility] e 40 mg EC 1-29 tablet by ity of tablet 00:00: mouth in [place] 00 the Medical morning Branch and 1 tablet in the evening. pantoprazol 2021-06 Yes [id number] 40mg Take 1 [facility] e 40 mg EC 1-29 tablet by ity of tablet 00:00: mouth in [place] [address] the Medical morning Branch and 1 tablet in the evening. pantoprazol 2021-06 Yes [id number] 40mg Take 1 [facility] e 40 mg EC 1-29 tablet by ity of tablet 00:00: mouth in [place] [address] the Medical morning Branch and 1 tablet in the evening. pantoprazol 2021-06 Yes [id number] 40mg Take 1 [facility] e 40 mg EC 1-29 tablet by ity of tablet 00:00: mouth in [place] [address] the Medical morning Branch and 1 tablet in the evening. pantoprazol 2021-06 Yes [id number] 40mg Take 1 [facility] e 40 mg EC 1-29 tablet by ity of tablet 00:00: mouth in [place] [address] the Medical morning Branch and 1 tablet in the evening. pantoprazol 2021-06 Yes [id number] 40mg Take 1 [facility] e 40 mg EC 1-29 tablet by ity of tablet 00:00: mouth in [place] [address] the Medical morning Branch and 1 tablet in the evening. pantoprazol 2021-06 Yes [id number] 40mg Take 1 [facility] e 40 mg EC 1-29 tablet by ity of tablet 00:00: mouth in [place] [address] the Medical morning Branch and 1 tablet in the evening. pantoprazol 2021-06 Yes [id number] 40mg Take 1 [facility] e 40 mg EC 1-29 tablet by ity of tablet 00:00: mouth in [place] [address] the Medical morning Branch and 1 tablet in the evening. pantoprazol 2021-06 Yes [id number] 40mg Take 1 [facility] e 40 mg EC 1-29 tablet by ity of tablet 00:00: mouth in [place] 00 the Medical morning Branch and 1 tablet in the evening. pantoprazol 2021-06 Yes [id number] 40mg Take 1 [facility] e 40 mg EC 1-29 tablet by ity of tablet 00:00: mouth in [place] 00 the Medical morning Branch and 1 tablet in the evening. pantoprazol 2021-06 Yes [id number] 40mg Take 1 [facility] 40 mg EC 1-29 tablet by ity of tablet 00:00: mouth in [place] 00 the Medical morning Branch and 1 tablet in the evening. pantoprazol 2021-06 Yes [id number] 40mg Take 1 [facility] e 40 mg EC 1-29 tablet by ity of tablet 00:00: mouth in [place] [address] the Medical morning Branch and 1 tablet in the evening. pantoprazol 2021-06 Yes [id number] 40mg Take 1 [facility] e 40 mg EC 1-29 tablet by ity of tablet 00:00: mouth in [place] [address] the Medical morning Branch and 1 tablet in the evening. pantoprazol 2021-06 Yes [id number] 40mg Take 1 [facility] e 40 mg EC 1-29 tablet by ity of tablet 00:00: mouth in [place] 00 the Medical morning Branch and 1 tablet in the evening. pantoprazol 2021-06 Yes [id number] 40mg Take 1 [facility] e 40 mg EC 1-29 tablet by ity of tablet 00:00: mouth in [place] [address] the Medical morning Branch and 1 tablet in the evening. pantoprazol 2021-06 Yes [id number] 40mg Take 1 [facility] e 40 mg EC 1-29 tablet by ity of tablet 00:00: mouth in [place] [address] the Medical morning Branch and 1 tablet in the evening. pantoprazol 2021-06 Yes [id number] 40mg Take 1 [facility] e 40 mg EC 1-29 tablet by ity of tablet 00:00: mouth in [place] [address] the Medical morning Branch and 1 tablet in the evening. pantoprazol 2021-06 Yes [id number] 40mg Take 1 [facility] e 40 mg EC 1-29 tablet by ity of tablet 00:00: mouth in [place] [address] the Medical morning Branch and 1 tablet in the evening. pantoprazol 2021-06 Yes [id number] 40mg Take 1 [facility] e 40 mg EC 1-29 tablet by ity of tablet 00:00: mouth in [place] 00 the Medical morning Branch and 1 tablet in the evening. pantoprazol 2021-06 Yes [id number] 40mg Take 1 [facility] e 40 mg EC 1-29 tablet by ity of tablet 00:00: mouth in [place] 00 the Medical morning Branch and 1 tablet in the evening. pantoprazol 2021-06 Yes [id number] 40mg Take 1 [facility] 40 mg EC 1-29 tablet by [facility] of tablet 00:00: mouth in [place] 00 the Medical morning Branch and 1 tablet in the evening. pantoprazol 2021-06 Yes [id number] 40mg Take 1 [facility] 40 mg EC 1-29 tablet by [facility] of tablet 00:00: mouth in [place] 00 the Medical morning Branch and 1 tablet in the evening. pantoprazol 2021-06 Yes [id number] 40mg Take 1 [facility] 40 mg EC 1-29 tablet by [facility] of tablet 00:00: mouth in [place] 00 the Medical morning Branch and 1 tablet in the evening. pantoprazol 2021-06 Yes [id number] 40mg Take 1 [facility] 40 mg EC 1-29 tablet by [facility] of tablet 00:00: mouth in [place] 00 the Medical morning Branch and 1 tablet in the evening. pantoprazol 2021-06 Yes [id number] 40mg Take 1 [facility] 40 mg EC 1-29 tablet by [facility] of tablet 00:00: mouth in [place] 00 the Medical morning Branch and 1 tablet in the evening. pantoprazol 2021-06 Yes [id number] 40mg Take 1 [facility] 40 mg EC 1-29 tablet by [facility] of tablet 00:00: mouth in [place] 00 the Medical morning Branch and 1 tablet in the evening. pantoprazol 2021-06 Yes [id number] 40mg Take 1 [facility] 40 mg EC 1-29 tablet by it[facility] of tablet 00:00: mouth in [place] [address] the Medical morning Branch and 1 tablet in the evening. pantoprazol 2021-06 Yes [id number] 40mg Take 1 [facility] 40 mg EC 1-29 tablet by it[facility] of tablet 00:00: mouth in [place] [address] the Medical morning Branch and 1 tablet in the evening. pantoprazol 2021-06 Yes [id number] 40mg Take 1 [facility] 40 mg EC 1-29 tablet by [facility] of tablet 00:00: mouth in [place] 00 the Medical morning Branch and 1 tablet in the evening. pantoprazol 2021-06 Yes [id number] 40mg Take 1 [facility] 40 mg EC 1-29 tablet by [facility] of tablet 00:00: mouth in [place] 00 the Medical morning Branch and 1 tablet in the evening. pantoprazol 2021-06 Yes [id number] 40mg Take 1 [facility] 40 mg EC 1-29 tablet by [facility] of tablet 00:00: mouth in [place] 00 the Medical morning Branch and 1 tablet in the evening. pantoprazol 2021-06 Yes [id number] 40mg Take 1 [facility] 40 mg EC 1-29 tablet by [facility] of tablet 00:00: mouth in [place] 00 the Medical morning Branch and 1 tablet in the evening. pantoprazol 2021-06 Yes [id number] 40mg Take 1 [facility] 40 mg EC 1-29 tablet by [facility] of tablet 00:00: mouth in [place] 00 the Medical morning Branch and 1 tablet in the evening. pantoprazol 2021-06 Yes [id number] 40mg Take 1 [facility] 40 mg EC 1-29 tablet by it[facility] of tablet 00:00: mouth in [place] 00 the Medical morning Branch and 1 tablet in the evening. pantoprazol 2021-06 Yes [id number] 40mg Take 1 [facility] 40 mg EC 1-29 tablet by [facility] of tablet 00:00: mouth in [place] 00 the Medical morning Branch and 1 tablet in the evening. pantoprazol 2021-06 Yes [id number] 40mg Take 1 [facility] 40 mg EC 1-29 tablet by [facility] of tablet 00:00: mouth in [place] 00 the Medical morning Branch and 1 tablet in the evening. pantoprazol 2021-06 Yes [id number] 40mg Take 1 [facility] 40 mg EC 1-29 tablet by [facility] of tablet 00:00: mouth in [place] 00 the Medical morning Branch and 1 tablet in the evening. pantoprazol 2021-06 Yes [id number] 40mg Take 1 [facility] 40 mg EC 1-29 tablet by [facility] of tablet 00:00: mouth in [place] 00 the Medical morning Branch and 1 tablet in the evening. pantoprazol 2021-06 Yes [id number] 40mg Take 1 [facility] 40 mg EC 1-29 tablet by [facility] of tablet 00:00: mouth in [place] [address] the Medical morning Branch and 1 tablet in the evening. pantoprazol 2021-06 Yes [id number] 40mg Take 1 [facility] 40 mg EC 1-29 tablet by [facility] of tablet 00:00: mouth in [place] 00 the Medical morning Branch and 1 tablet in the evening. pantoprazol 2021-06 Yes [id number] 40mg Take 1 [facility] 40 mg EC 1-29 tablet by it[facility] of tablet 00:00: mouth in [place] [address] the Medical morning Branch and 1 tablet in the evening. pantoprazol 2021-06 Yes [id number] 40mg Take 1 [facility] 40 mg EC 1-29 tablet by ity of tablet 00:00: mouth in [place] [address] the [facility] morning Branch and 1 tablet in the evening. pantoprazol 2021-06 Yes [id number] 40mg Take 1 [facility] 40 mg EC 1-29 tablet by ity of tablet 00:00: mouth in [place] [address] the [facility] morning [place] and 1 tablet in the evening. pantoprazol 2021-06 Yes [id number] 40mg Take 1 [facility] 40 mg EC 1-29 tablet by ity of tablet 00:00: mouth in [place] [address] the [facility] morning [place] and 1 tablet in the evening. pantoprazol 2021-06 Yes [id number] 40mg Take 1 [facility] 40 mg EC 1-29 tablet by ity of tablet 00:00: mouth in [place] [address] the [facility] morning [place] and 1 tablet in the evening. pantoprazol 2021-06 Yes [id number] 40mg Take 1 [facility] 40 mg EC 1-29 tablet by ity of tablet 00:00: mouth in [place] [address] the [facility] morning Branch and 1 tablet in the evening. pantoprazol 2021-06 Yes [id number] 40mg Take 1 [facility] 40 mg EC 1-29 tablet by ity of tablet 00:00: mouth in [place] [address] the [facility] morning [place] and 1 tablet in the evening. pantoprazol 2021-06 Yes [id number] 40mg Take 1 [facility] 40 mg EC 1-29 tablet by ity of tablet 00:00: mouth in [place] [address] the [facility] morning [place] and 1 tablet in the evening. clonazePAM 2021-06 Yes [id number] Take 1 [facility] 1 mg tablet 1-08 pill PO in it y of 00:00: the AM, 1 [place] 00 PO in the Medical afternoon, Branch 1 pill PO in the evening. May take additional 1/2 pill as needed for acute anxiety. clonazePAM 2021-06 Yes [id number] Take 1 [facility] 1 mg tablet 1-08 pill PO in it y of 00:00: the AM, 1 [place] 00 PO in the Medical afternoon, Branch 1 pill PO in the evening. May take additional 1/2 pill as needed for acute anxiety. clonazePAM 2021-06 Yes [id number] Take 1 [facility] 1 mg tablet 1-08 pill PO in it y of 00:00: the AM, 1 [place] 00 PO in the Medical afternoon, Branch 1 pill PO in the evening. May take additional 1/2 pill as needed for acute anxiety. clonazePAM 2021-06 Yes [id number] Take 1 [facility] 1 mg tablet 1-08 pill PO in it y of 00:00: the AM, 1 [place] 00 PO in the Medical afternoon, Branch 1 pill PO in the evening. May take additional 1/2 pill as needed for acute anxiety. clonazePAM 2021-06- No [id number] Take 1 [facility] 1 mg tablet 06-30- pill PO in i ty of 00:00: 00:00 the AM, 1 [place] 00 :00 PO in the Medical afternoon, Branch 1 pill PO in the evening. May take additional 1/2 pill as needed for acute anxiety. clonazePAM 2021-06- No [id number] Take 1 [facility] 1 mg tablet 06-30- pill PO in i ty of 00:00: 00:00 the AM, 1 [place] 00 :00 PO in the Medical afternoon, Branch 1 pill PO in the evening. May take additional 1/2 pill as needed for acute anxiety. clonazePAM 2021-06- No [id number] Take 1 [facility] 1 mg tablet 06-30- pill PO in i ty of 00:00: 00:00 the AM, 1 [place] 00 :00 PO in the Medical afternoon, Branch 1 pill PO in the evening. May take additional 1/2 pill as needed for acute anxiety. clonazePAM 2021-06- No [id number] Take 1 [facility] 1 mg tablet 06-30- pill PO in i ty of 00:00: 00:00 the AM, 1 [place] 00 :00 PO in the Medical afternoon, Branch 1 pill PO in the evening. May take additional 1/2 pill as needed for acute anxiety. clonazePAM 2021-06- No [id number] Take 1 [facility] 1 mg tablet 06-30 12-02 pill PO in i ty of 00:00: 00:00 the AM, 1 [place] 00 :00 PO in the Medical afternoon, Branch 1 pill PO in the evening. May take additional 1/2 pill as needed for acute anxiety. dulaglutide 2021-06 Yes [id number] 3mg Inject 1 [facility] (TRULICITY) 1-04 Pen as ity of 3 mg/0.5 mL 00:00: directed [place] [facility] 00 weekly. Medical Branch dulaglutide 2021-06 Yes [id number] 3mg Inject 1 [facility] (TRULICITY) 1-04 Pen as ity of 3 mg/0.5 mL 00:00: directed [place] [facility] 00 weekly. Medical Branch dulaglutide 2021-06 Yes [id number] 3mg Inject 1 [facility] (TRULICITY) 1-04 Pen as ity of 3 mg/0.5 mL 00:00: directed [place] [facility] 00 weekly. Medical Branch dulaglutide 2021-06 Yes [id number] 3mg Inject 1 [facility] (TRULICITY) 1-04 Pen as ity of 3 mg/0.5 mL 00:00: directed [place] [facility] 00 weekly. Medical Branch dulaglutide 2021-06 Yes [id number] 3mg Inject 1 [facility] (TRULICITY) 1-04 Pen as ity of 3 mg/0.5 mL 00:00: directed [place] [facility] 00 weekly. Medical Branch dulaglutide 2021-06 Yes [id number] 3mg Inject 1 [facility] (TRULICITY) 1-04 Pen as ity of 3 mg/0.5 mL 00:00: directed [place] [facility] 00 weekly. Medical Branch dulaglutide 2021-06 Yes [id number] 3mg Inject 1 [facility] (TRULICITY) 1-04 Pen as ity of 3 mg/0.5 mL 00:00: directed [place] [facility] 00 weekly. Medical Branch dulaglutide 2021-06 Yes [id number] 3mg Inject 1 [facility] (TRULICITY) 1-04 Pen as ity of 3 mg/0.5 mL 00:00: directed [place] [facility] 00 weekly. Medical Branch dulaglutide 2021-06 Yes [id number] 3mg Inject 1 [facility] (TRULICITY) 1-04 Pen as ity of 3 mg/0.5 mL 00:00: directed [place] [facility] 00 weekly. Medical Branch dulaglutide 2021-06 Yes [id number] 3mg Inject 1 [facility] (TRULICITY) 1-04 Pen as ity of 3 mg/0.5 mL 00:00: directed [place] [facility] 00 weekly. Medical Branch dulaglutide 2021-06 Yes [id number] 3mg Inject 1 [facility] (TRULICITY) 1-04 Pen as ity of 3 mg/0.5 mL 00:00: directed [place] [facility] 00 weekly. Medical Branch dulaglutide 2021-06 Yes [id number] 3mg Inject 1 [facility] (TRULICITY) 1-04 Pen as ity of 3 mg/0.5 mL 00:00: directed [place] [facility] 00 weekly. Medical Branch dulaglutide 2021-06 Yes [id number] 3mg Inject 1 [facility] (TRULICITY) 1-04 Pen as ity of 3 mg/0.5 mL 00:00: directed [place] [facility] 00 weekly. Medical Branch dulaglutide 2021-06 Yes [id number] 3mg Inject 1 [facility] (TRULICITY) 1-04 Pen as ity of 3 mg/0.5 mL 00:00: directed [place] [facility] 00 weekly. Medical Branch dulaglutide 2021-06 Yes [id number] 3mg Inject 1 [facility] (TRULICITY) 1-04 Pen as ity of 3 mg/0.5 mL 00:00: directed [place] [facility] 00 weekly. Medical Branch dulaglutide 2021-06 Yes [id number] 3mg Inject 1 [facility] (TRULICITY) 1-04 Pen as ity of 3 mg/0.5 mL 00:00: directed [place] [facility] 00 weekly. Medical Branch dulaglutide 2021-06 Yes [id number] 3mg Inject 1 [facility] (TRULICITY) 1-04 Pen as ity of 3 mg/0.5 mL 00:00: directed [place] [facility] 00 weekly. Medical Branch dulaglutide 2021-06 Yes [id number] 3mg Inject 1 [facility] (TRULICITY) 1-04 Pen as ity of 3 mg/0.5 mL 00:00: directed [place] [facility] 00 weekly. Medical Branch dulaglutide 2021-06 Yes [id number] 3mg Inject 1 [facility] (TRULICITY) 1-04 Pen as ity of 3 mg/0.5 mL 00:00: directed [place] [facility] 00 weekly. Medical Branch dulaglutide 2021-06 Yes [id number] 3mg Inject 1 [facility] (TRULICITY) 1-04 Pen as ity of 3 mg/0.5 mL 00:00: directed [place] [facility] 00 weekly. Medical Branch dulaglutide 2021-06 Yes [id number] 3mg Inject 1 [facility] (TRULICITY) 1-04 Pen as ity of 3 mg/0.5 mL 00:00: directed [place] [facility] 00 weekly. Medical Branch dulaglutide 2021-06 Yes [id number] 3mg Inject 1 [facility] (TRULICITY) 1-04 Pen as ity of 3 mg/0.5 mL 00:00: directed [place] [facility] 00 weekly. Medical Branch dulaglutide 2021-06 Yes [id number] 3mg Inject 1 [facility] (TRULICITY) 1-04 Pen as ity of 3 mg/0.5 mL 00:00: directed [place] [facility] 00 weekly. Medical Branch dulaglutide 2021-06 Yes [id number] 3mg Inject 1 [facility] (TRULICITY) 1-04 Pen as ity of 3 mg/0.5 mL 00:00: directed [place] [facility] 00 weekly. Medical Branch dulaglutide 2021-06 Yes [id number] 3mg Inject 1 [facility] (TRULICITY) 1-04 Pen as ity of 3 mg/0.5 mL 00:00: directed [place] [facility] 00 weekly. Medical Branch dulaglutide 2021-06 Yes [id number] 3mg Inject 1 [facility] (TRULICITY) 1-04 Pen as ity of 3 mg/0.5 mL 00:00: directed [place] [facility] 00 weekly. Medical Branch dulaglutide 2021-06 Yes [id number] 3mg Inject 1 [facility] (TRULICITY) 1-04 Pen as ity of 3 mg/0.5 mL 00:00: directed [place] [facility] 00 weekly. Medical Branch dulaglutide 2021-06 Yes [id number] 3mg Inject 1 [facility] (TRULICITY) 1-04 Pen as ity of 3 mg/0.5 mL 00:00: directed [place] [facility] 00 weekly. Medical Branch dulaglutide 2021-06 Yes [id number] 3mg Inject 1 [facility] (TRULICITY) 1-04 Pen as ity of 3 mg/0.5 mL 00:00: directed [place] [facility] 00 weekly. Medical Branch dulaglutide 2021-06 Yes [id number] 3mg Inject 1 [facility] (TRULICITY) 1-04 Pen as ity of 3 mg/0.5 mL 00:00: directed [place] [facility] 00 weekly. Medical Branch dulaglutide 2021-06 Yes [id number] 3mg Inject 1 [facility] (TRULICITY) 1-04 Pen as ity of 3 mg/0.5 mL 00:00: directed [place] [facility] 00 weekly. Medical Branch dulaglutide 2021-06 Yes [id number] 3mg Inject 1 [facility] (TRULICITY) 1-04 Pen as ity of 3 mg/0.5 mL 00:00: directed [place] [facility] 00 weekly. Medical Branch dulaglutide 2021-06 Yes [id number] 3mg Inject 1 [facility] (TRULICITY) 1-04 Pen as ity of 3 mg/0.5 mL 00:00: directed [place] [facility] 00 weekly. Medical Branch dulaglutide 2021-06 Yes [id number] 3mg Inject 1 [facility] (TRULICITY) 1-04 Pen as ity of 3 mg/0.5 mL 00:00: directed [place] [facility] 00 weekly. Medical Branch dulaglutide 2021-06 Yes [id number] 3mg Inject 1 [facility] (TRULICITY) 1-04 Pen as ity of 3 mg/0.5 mL 00:00: directed [place] [facility] 00 weekly. Medical Branch dulaglutide 2021-06 Yes [id number] 3mg Inject 1 [facility] (TRULICITY) 1-04 Pen as ity of 3 mg/0.5 mL 00:00: directed [place] [facility] 00 weekly. Medical Branch dulaglutide 2021-06 Yes [id number] 3mg Inject 1 [facility] (TRULICITY) 1-04 Pen as ity of 3 mg/0.5 mL 00:00: directed [place] [facility] 00 weekly. Medical Branch dulaglutide 2021-06 Yes [id number] 3mg Inject 1 [facility] (TRULICITY) 1-04 Pen as ity of 3 mg/0.5 mL 00:00: directed [place] [facility] 00 weekly. Medical Branch dulaglutide 2021-06 Yes [id number] 3mg Inject 1 [facility] (TRULICITY) 1-04 Pen as ity of 3 mg/0.5 mL 00:00: directed [place] [facility] 00 weekly. Medical Branch dulaglutide 2021-06 Yes [id number] 3mg Inject 1 [facility] (TRULICITY) 1-04 Pen as ity of 3 mg/0.5 mL 00:00: directed [place] [facility] 00 weekly. Medical Branch dulaglutide 2021-06 Yes [id number] 3mg Inject 1 [facility] (TRULICITY) 1-04 Pen as ity of 3 mg/0.5 mL 00:00: directed [place] [facility] 00 weekly. Medical Branch dulaglutide 2021-06 Yes [id number] 3mg Inject 1 [facility] (TRULICITY) 1-04 Pen as ity of 3 mg/0.5 mL 00:00: directed [place] [facility] 00 weekly. Medical Branch dulaglutide 2021-06 Yes [id number] 3mg Inject 1 [facility] (TRULICITY) 1-04 Pen as ity of 3 mg/0.5 mL 00:00: directed [place] [facility] 00 weekly. Medical Branch dulaglutide 2021-06 Yes [id number] 3mg Inject 1 [facility] (TRULICITY) 1-04 Pen as ity of 3 mg/0.5 mL 00:00: directed [place] [facility] 00 weekly. Medical Branch dulaglutide 2021-06 Yes [id number] 3mg Inject 1 [facility] (TRULICITY) 1-04 Pen as ity of 3 mg/0.5 mL 00:00: directed [place] [facility] 00 weekly. Medical Branch dulaglutide 2021-06 Yes [id number] 3mg Inject 1 [facility] (TRULICITY) 1-04 Pen as ity of 3 mg/0.5 mL 00:00: directed [place] [facility] 00 weekly. Medical Branch dulaglutide 2021-06 Yes [id number] 3mg Inject 1 [facility] (TRULICITY) 1-04 Pen as ity of 3 mg/0.5 mL 00:00: directed [place] [facility] 00 weekly. Medical Branch dulaglutide 2021-06 Yes [id number] 3mg Inject 1 [facility] (TRULICITY) 1-04 Pen as ity of 3 mg/0.5 mL 00:00: directed [place] [facility] 00 weekly. Medical Branch dulaglutide 2021-06 Yes [id number] 3mg Inject 1 [facility] (TRULICITY) 1-04 Pen as ity of 3 mg/0.5 mL 00:00: directed [place] [facility] 00 weekly. Medical Branch dulaglutide 2021-06 Yes [id number] 3mg Inject 1 [facility] (TRULICITY) 1-04 Pen as ity of 3 mg/0.5 mL 00:00: directed [place] [facility] 00 weekly. Medical Branch dulaglutide 2021-06 Yes [id number] 3mg Inject 1 [facility] (TRULICITY) 1-04 Pen as ity of 3 mg/0.5 mL 00:00: directed [place] [facility] 00 weekly. Medical Branch dulaglutide 2021-06 Yes [id number] 3mg Inject 1 [facility] (TRULICITY) 1-04 Pen as ity of 3 mg/0.5 mL 00:00: directed [place] [facility] 00 weekly. Medical Branch dulaglutide 2021-06 Yes [id number] 3mg Inject 1 [facility] (TRULICITY) 1-04 Pen as ity of 3 mg/0.5 mL 00:00: directed [place] [facility] 00 weekly. Medical Branch dulaglutide 2021-06 Yes [id number] 3mg Inject 1 [facility] (TRULICITY) 1-04 Pen as ity of 3 mg/0.5 mL 00:00: directed [place] [facility] 00 weekly. Medical Branch dulaglutide 2021-06 Yes [id number] 3mg Inject 1 [facility] (TRULICITY) 1-04 Pen as ity of 3 mg/0.5 mL 00:00: directed [place] [facility] 00 weekly. Medical Branch dulaglutide 2021-06 Yes [id number] 3mg Inject 1 [facility] (TRULICITY) 1-04 Pen as ity of 3 mg/0.5 mL 00:00: directed [place] [facility] 00 weekly. Medical Branch dulaglutide 2021-06 Yes [id number] 3mg Inject 1 [facility] (TRULICITY) 1-04 Pen as ity of 3 mg/0.5 mL 00:00: directed [place] [facility] 00 weekly. Medical Branch dulaglutide 2021-06 Yes [id number] 3mg Inject 1 [facility] (TRULICITY) 1-04 Pen as ity of 3 mg/0.5 mL 00:00: directed [place] [facility] 00 weekly. Medical Branch dulaglutide 2021-06 Yes [id number] 3mg Inject 1 [facility] (TRULICITY) 1-04 Pen as ity of 3 mg/0.5 mL 00:00: directed [place] [facility] 00 weekly. Medical Branch dulaglutide 2021-06 Yes [id number] 3mg Inject 1 [facility] (TRULICITY) 1-04 Pen as ity of 3 mg/0.5 mL 00:00: directed [place] [facility] 00 weekly. Medical Branch dulaglutide 2021-06 Yes [id number] 3mg Inject 1 [facility] (TRULICITY) 1-04 Pen as ity of 3 mg/0.5 mL 00:00: directed [place] [facility] 00 weekly. [facility] Branch dulaglutide 2021-06 Yes [id number] 3mg Inject 1 [facility] (TRULICITY) 1-04 Pen as ity of 3 mg/0.5 mL 00:00: directed [place] [facility] 00 weekly. [facility] Branch dulaglutide 2021-06 Yes [id number] 3mg Inject 1 [facility] (TRULICITY) 1-04 Pen as ity of 3 mg/0.5 mL 00:00: directed [place] [facility] 00 weekly. [facility] Branch dulaglutide 2021-06 Yes [id number] 3mg Inject 1 [facility] (TRULICITY) 1-04 Pen as ity of 3 mg/0.5 mL 00:00: directed [place] [facility] 00 weekly. [facility] Branch dulaglutide 2021-06 Yes [id number] 3mg Inject 1 [facility] (TRULICITY) 1-04 Pen as ity of 3 mg/0.5 mL 00:00: directed [place] [facility] 00 weekly. [facility] Branch dulaglutide 2021-06 Yes [id number] 3mg Inject 1 [facility] (TRULICITY) 1-04 Pen as ity of 3 mg/0.5 mL 00:00: directed [place] [facility] 00 weekly. [facility] Branch dulaglutide 2021-06 Yes [id number] 3mg Inject 1 [facility] (TRULICITY) 1-04 Pen as ity of 3 mg/0.5 mL 00:00: directed [place] [facility] 00 weekly. [facility] Branch dulaglutide 2021-06 Yes [id number] 3mg Inject 1 [facility] (TRULICITY) 1-04 Pen as ity of 3 mg/0.5 mL 00:00: directed [place] [facility] 00 weekly. [facility] Branch dulaglutide 2021-06 Yes [id number] 3mg Inject 1 [facility] (TRULICITY) 1-04 Pen as ity of 3 mg/0.5 mL 00:00: directed [place] [facility] 00 weekly. [facility] Branch dulaglutide 2021-06 Yes [id number] 3mg Inject 1 [facility] (TRULICITY) 1-04 Pen as ity of 3 mg/0.5 mL 00:00: directed [place] [facility] 00 weekly. [facility] Branch dulaglutide 2021-06 Yes [id number] 3mg Inject 1 [facility] (TRULICITY) 1-04 Pen as ity of 3 mg/0.5 mL 00:00: directed [place] [facility] 00 weekly. [facility] Branch dulaglutide 2021-06 Yes [id number] 3mg Inject 1 [facility] (TRULICITY) 1-04 Pen as ity of 3 mg/0.5 mL 00:00: directed [place] [facility] 00 weekly. [facility] Branch dulaglutide 2021-06- No [id number] 3mg Inject 1 [facility] (TRULICITY) 06-26-08 Pen as ity o f 3 mg/0.5 mL 00:00: 00:00 directed [place] [facility] 00 :00 weekly. Medical Branch dulaglutide 2021-06- No [id number] 3mg Inject 1 [facility] (TRULICITY) 06-26-08 Pen as ity o f 3 mg/0.5 mL 00:00: 00:00 directed [place] [facility] 00 :00 weekly. [facility] Branch dulaglutide 2021-06- No [id number] 3mg Inject 1 [facility] (TRULICITY) 06-26-08 Pen as ity o f 3 mg/0.5 mL 00:00: 00:00 directed [place] [facility] 00 :00 weekly. [facility] Branch dulaglutide 2021-06- No [id number] 3mg Inject 1 [facility] (TRULICITY) 06-26 05-08 Pen as ity o f 3 mg/0.5 mL 00:00: 00:00 directed [place] [facility] 00 :00 weekly. [facility] Branch dulaglutide 2021-06- No [id number] 3mg Inject 1 [facility] (TRULICITY) 06-26 05-08 Pen as ity o f 3 mg/0.5 mL 00:00: 00:00 directed [place] [facility] 00 :00 weekly. [facility] Branch dulaglutide 2021-06- No [id number] 3mg Inject 1 [facility] (TRULICITY) 06-26-08 Pen as ity o f 3 mg/0.5 mL 00:00: 00:00 directed [place] [facility] 00 :00 weekly. [facility] Branch dulaglutide 2021-06- No [id number] 3mg Inject 1 [facility] (TRULICITY) 06-26-08 Pen as ity o f 3 mg/0.5 mL 00:00: 00:00 directed [place] [facility] 00 :00 weekly. [facility] Branch dulaglutide 2021-06- No [id number] 3mg Inject 1 [facility] (TRULICITY) 06-26-08 Pen as ity o f 3 mg/0.5 mL 00:00: 00:00 directed [place] [facility] 00 :00 weekly. [facility] Branch atorvastati 2021-06 Yes [id number] 40mg Take 1 [facility] n (LIPITOR) 0-31 tablet by ity of 40 mg 00:00: mouth at [place] tablet 00 bedtime. [facility] Branch atorvastati 2021-06 Yes [id number] 40mg Take 1 [facility] n (LIPITOR) 0-31 tablet by ity of 40 mg 00:00: mouth at [place] tablet 00 bedtime. [facility] Branch atorvastati 2021-06 Yes [id number] 40mg Take 1 [facility] n (LIPITOR) 0-31 tablet by ity of 40 mg 00:00: mouth at [place] tablet 00 bedtime. [facility] Branch atorvastati 2021-06 Yes [id number] 40mg Take 1 [facility] n (LIPITOR) 0-31 tablet by ity of 40 mg 00:00: mouth at [place] tablet 00 bedtime. [facility] Branch atorvastati 2021-06 Yes [id number] 40mg Take 1 [facility] n (LIPITOR) 0-31 tablet by ity of 40 mg 00:00: mouth at [place] tablet 00 bedtime. [facility] Branch atorvastati 2021-06 Yes [id number] 40mg Take 1 [facility] n (LIPITOR) 0-31 tablet by ity of 40 mg 00:00: mouth at [place] tablet 00 bedtime. [facility] Branch atorvastati 2021-06 Yes [id number] 40mg Take 1 [facility] n (LIPITOR) 0-31 tablet by ity of 40 mg 00:00: mouth at [place] tablet 00 bedtime. [facility] Yes [id number] 40mg Take 1 [facility] n (LIPITOR) 0-31 tablet by ity of 40 mg 00:00: mouth at [place] tablet 00 bedtime. [facility]06 Yes [id number] 40mg Take 1 [facility] n (LIPITOR) 0-31 tablet by ity of 40 mg 00:00: mouth at [place] tablet 00 bedtime. [facility]-06 Yes [id number] 40mg Take 1 [facility] n (LIPITOR) 0-31 tablet by ity of 40 mg 00:00: mouth at [place] tablet 00 bedtime. [facility]-06 Yes [id number] 40mg Take 1 [facility] n (LIPITOR) 0-31 tablet by ity of 40 mg 00:00: mouth at [place] tablet 00 bedtime. [facility]-06 Yes [id number] 40mg Take 1 [facility] n (LIPITOR) 0-31 tablet by ity of 40 mg 00:00: mouth at [place] tablet 00 bedtime. [facility]-06 Yes [id number] 40mg Take 1 [facility] n (LIPITOR) 0-31 tablet by ity of 40 mg 00:00: mouth at [place] tablet 00 bedtime. [facility] 2021-06 Yes [id number] 40mg Take 1 [facility] n (LIPITOR) 0-31 tablet by ity of 40 mg 00:00: mouth at [place] tablet 00 bedtime. [facility]-06 Yes [id number] 40mg Take 1 [facility] n (LIPITOR) 0-31 tablet by ity of 40 mg 00:00: mouth at [place] tablet 00 bedtime. [facility]-06 Yes [id number] 40mg Take 1 [facility] n (LIPITOR) 0-31 tablet by ity of 40 mg 00:00: mouth at [place] tablet 00 bedtime. [facility] Yes [id number] 40mg Take 1 [facility] n (LIPITOR) 0-31 tablet by ity of 40 mg 00:00: mouth at [place] tablet 00 bedtime. [facility] Yes [id number] 40mg Take 1 [facility] n (LIPITOR) 0-31 tablet by ity of 40 mg 00:00: mouth at [place] tablet 00 bedtime. [facility] Yes [id number] 40mg Take 1 [facility] n (LIPITOR) 0-31 tablet by ity of 40 mg 00:00: mouth at [place] tablet 00 bedtime. [facility] Branch atorvasta 2021-06 Yes [id number] 40mg Take 1 [facility] n (LIPITOR) 0-31 tablet by ity of 40 mg 00:00: mouth at [place] tablet 00 bedtime. [facility] Branch atorvasta 2021-06 Yes [id number] 40mg Take 1 [facility] n (LIPITOR) 0-31 tablet by ity of 40 mg 00:00: mouth at [place] tablet 00 bedtime. [facility] Branch atorvasta 2021-06 Yes [id number] 40mg Take 1 [facility] n (LIPITOR) 0-31 tablet by ity of 40 mg 00:00: mouth at [place] tablet 00 bedtime. [facility] atorvasta 2021-06 Yes [id number] 40mg Take 1 [facility] n (LIPITOR) 0-31 tablet by ity of 40 mg 00:00: mouth at [place] tablet 00 bedtime. [facility] Branch atorvasta 2021-06 Yes [id number] 40mg Take 1 [facility] n (LIPITOR) 0-31 tablet by ity of 40 mg 00:00: mouth at [place] tablet 00 bedtime. [facility] atorvasta 2021-06 Yes [id number] 40mg Take 1 [facility] n (LIPITOR) 0-31 tablet by ity of 40 mg 00:00: mouth at [place] tablet 00 bedtime. [facility] Branch atorvasta 2021-06 Yes [id number] 40mg Take 1 [facility] n (LIPITOR) 0-31 tablet by ity of 40 mg 00:00: mouth at [place] tablet 00 bedtime. [facility] Branch atorvasta 2021-06 Yes [id number] 40mg Take 1 [facility] n (LIPITOR) 0-31 tablet by ity of 40 mg 00:00: mouth at [place] tablet 00 bedtime. [facility] Branch atorvasta 2021-06 Yes [id number] 40mg Take 1 [facility] n (LIPITOR) 0-31 tablet by ity of 40 mg 00:00: mouth at [place] tablet 00 bedtime. [facility] Branch atorvasta 2021-06 Yes [id number] 40mg Take 1 [facility] (LIPITOR) 0-31 tablet by [facility] of 40 mg 00:00: mouth at [place] tablet 00 bedtime. [facility]-06 Yes [id number] 40mg Take 1 [facility] (LIPITOR) 0-31 tablet by it[facility] of 40 mg 00:00: mouth at [place] tablet 00 bedtime. [facility]06 Yes [id number] 40mg Take 1 [facility] n (LIPITOR) 0-31 tablet by ity of 40 mg 00:00: mouth at [place] tablet 00 bedtime. [facility] atorvasta 2021-06 Yes [id number] 40mg Take 1 [facility] n (LIPITOR) 0-31 tablet by ity of 40 mg 00:00: mouth at [place] tablet 00 bedtime. [facility] 2021-06 Yes [id number] 40mg Take 1 [facility] n (LIPITOR) 0-31 tablet by ity of 40 mg 00:00: mouth at [place] tablet 00 bedtime. [facility] 2021-06 Yes [id number] 40mg Take 1 [facility] n (LIPITOR) 0-31 tablet by ity of 40 mg 00:00: mouth at [place] tablet 00 bedtime. [facility] 2021-06 Yes [id number] 40mg Take 1 [facility] n (LIPITOR) 0-31 tablet by ity of 40 mg 00:00: mouth at [place] tablet 00 bedtime. [facility] 2021-06 Yes [id number] 40mg Take 1 [facility] n (LIPITOR) 0-31 tablet by ity of 40 mg 00:00: mouth at [place] tablet 00 bedtime. [facility] Branch atorvasta 2021-06 Yes [id number] 40mg Take 1 [facility] n (LIPITOR) 0-31 tablet by ity of 40 mg 00:00: mouth at [place] tablet 00 bedtime. [facility] atorvasta 2021-06 Yes [id number] 40mg Take 1 [facility] n (LIPITOR) 0-31 tablet by ity of 40 mg 00:00: mouth at [place] tablet 00 bedtime. [facility] atorvasta 2021-06 Yes [id number] 40mg Take 1 [facility] n (LIPITOR) 0-31 tablet by ity of 40 mg 00:00: mouth at [place] tablet 00 bedtime. [facility]06 Yes [id number] 40mg Take 1 [facility] n (LIPITOR) 0-31 tablet by ity of 40 mg 00:00: mouth at [place] tablet 00 bedtime. [facility] atorvasta 2021-06 Yes [id number] 40mg Take 1 [facility] n (LIPITOR) 0-31 tablet by ity of 40 mg 00:00: mouth at [place] tablet 00 bedtime. [facility] atorvasta 2021-06 Yes [id number] 40mg Take 1 [facility] (LIPITOR) 0-31 tablet by ity of 40 mg 00:00: mouth at [place] tablet 00 bedtime. [facility] atorvasta 2021-06 Yes [id number] 40mg Take 1 [facility] n (LIPITOR) 0-31 tablet by ity of 40 mg 00:00: mouth at [place] tablet 00 bedtime. [facility] atorvasta 2021-06 Yes [id number] 40mg Take 1 [facility] n (LIPITOR) 0-31 tablet by [facility]y of 40 mg 00:00: mouth at [place] tablet 00 bedtime. [facility] atorvasta 2021-06 Yes [id number] 40mg Take 1 [facility] n (LIPITOR) 0-31 tablet by ity of 40 mg 00:00: mouth at [place] tablet 00 bedtime. [facility]06 Yes [id number] 40mg Take 1 [facility] n (LIPITOR) 0-31 tablet by ity of 40 mg 00:00: mouth at [place] tablet 00 bedtime. [facility] atorvasta 2021-06 Yes [id number] 40mg Take 1 [facility] n (LIPITOR) 0-31 tablet by ity of 40 mg 00:00: mouth at [place] tablet 00 bedtime. [facility] atorvasta 2021-06 Yes [id number] 40mg Take 1 [facility] n (LIPITOR) 0-31 tablet by ity of 40 mg 00:00: mouth at [place] tablet 00 bedtime. [facility] atorvasta 2021-06 Yes [id number] 40mg Take 1 [facility] n (LIPITOR) 0-31 tablet by ity of 40 mg 00:00: mouth at [place] tablet 00 bedtime. [facility] Branch atorvasta 2021-06 Yes [id number] 40mg Take 1 [facility] n (LIPITOR) 0-31 tablet by ity of 40 mg 00:00: mouth at [place] tablet 00 bedtime. [facility] 2021-06 Yes [id number] 40mg Take 1 [facility] (LIPITOR) 0-31 tablet by ity of 40 mg 00:00: mouth at [place] tablet 00 bedtime. [facility] 2021-06 Yes [id number] 40mg Take 1 [facility] (LIPITOR) 0-31 tablet by ity of 40 mg 00:00: mouth at [place] tablet 00 bedtime. [facility] 2021-06 Yes [id number] 40mg Take 1 [facility] (LIPITOR) 0-31 tablet by ity of 40 mg 00:00: mouth at [place] tablet 00 bedtime. [facility] 2021-06 Yes [id number] 40mg Take 1 [facility] n (LIPITOR) 0-31 tablet by ity of 40 mg 00:00: mouth at [place] tablet 00 bedtime. [facility] 2021-06 Yes [id number] 40mg Take 1 [facility] n (LIPITOR) 0-31 tablet by ity of 40 mg 00:00: mouth at [place] tablet 00 bedtime. [facility] 2021-06 Yes [id number] 40mg Take 1 [facility] n (LIPITOR) 0-31 tablet by ity of 40 mg 00:00: mouth at [place] tablet 00 bedtime. [facility] 2021-06 Yes [id number] 40mg Take 1 [facility] n (LIPITOR) 0-31 tablet by ity of 40 mg 00:00: mouth at [place] tablet 00 bedtime. [facility] 2021-06 Yes [id number] 40mg Take 1 [facility] n (LIPITOR) 0-31 tablet by ity of 40 mg 00:00: mouth at [place] tablet 00 bedtime. [facility] 2021-06 Yes [id number] 40mg Take 1 [facility] n (LIPITOR) 0-31 tablet by ity of 40 mg 00:00: mouth at [place] tablet 00 bedtime. [facility]06 Yes [id number] 40mg Take 1 [facility] n (LIPITOR) 0-31 tablet by ity of 40 mg 00:00: mouth at [place] tablet 00 bedtime. [facility]06 Yes [id number] 40mg Take 1 [facility] n (LIPITOR) 0-31 tablet by ity of 40 mg 00:00: mouth at [place] tablet 00 bedtime. [facility] 2021-06 Yes [id number] 40mg Take 1 [facility] (LIPITOR) 0-31 tablet by ity of 40 mg 00:00: mouth at [place] tablet 00 bedtime. [facility] 2021-06 Yes [id number] 40mg Take 1 [facility] (LIPITOR) 0-31 tablet by ity of 40 mg 00:00: mouth at [place] tablet 00 bedtime. [facility] 2021-06 Yes [id number] 40mg Take 1 [facility] n (LIPITOR) 0-31 tablet by ity of 40 mg 00:00: mouth at [place] tablet 00 bedtime. [facility] 2021-06 Yes [id number] 40mg Take 1 [facility] n (LIPITOR) 0-31 tablet by ity of 40 mg 00:00: mouth at [place] tablet 00 bedtime. [facility] 2021-06 Yes [id number] 40mg Take 1 [facility] n (LIPITOR) 0-31 tablet by ity of 40 mg 00:00: mouth at [place] tablet 00 bedtime. [facility] 2021-06 Yes [id number] 40mg Take 1 [facility] n (LIPITOR) 0-31 tablet by ity of 40 mg 00:00: mouth at [place] tablet 00 bedtime. [facility] 2021-06 Yes [id number] 40mg Take 1 [facility] (LIPITOR) 0-31 tablet by ity of 40 mg 00:00: mouth at [place] tablet 00 bedtime. [facility] 2021-06 Yes [id number] 40mg Take 1 [facility] n (LIPITOR) 0-31 tablet by ity of 40 mg 00:00: mouth at [place] tablet 00 bedtime. [facility] 2021-06 Yes [id number] 40mg Take 1 [facility] n (LIPITOR) 0-31 tablet by ity of 40 mg 00:00: mouth at [place] tablet 00 bedtime. [facility] 2021-06 Yes [id number] 40mg Take 1 [facility] n (LIPITOR) 0-31 tablet by ity of 40 mg 00:00: mouth at [place] tablet 00 bedtime. [facility] 2021-06 Yes [id number] 40mg Take 1 [facility] n (LIPITOR) 0-31 tablet by ity of 40 mg 00:00: mouth at [place] tablet 00 bedtime. [facility] 2021-06 Yes [id number] 40mg Take 1 [facility] n (LIPITOR) 0-31 tablet by ity of 40 mg 00:00: mouth at [place] tablet 00 bedtime. [facility] 2021-06 Yes [id number] 40mg Take 1 [facility] n (LIPITOR) 0-31 tablet by ity of 40 mg 00:00: mouth at [place] tablet 00 bedtime. [facility] 2021-06 Yes [id number] 40mg Take 1 [facility] (LIPITOR) 0-31 tablet by ity of 40 mg 00:00: mouth at [place] tablet 00 bedtime. [facility] 2021-06 Yes [id number] 40mg Take 1 [facility] (LIPITOR) 0-31 tablet by ity of 40 mg 00:00: mouth at [place] tablet 00 bedtime. [facility] 2021-06 Yes [id number] 40mg Take 1 [facility] (LIPITOR) 0-31 tablet by ity of 40 mg 00:00: mouth at [place] tablet 00 bedtime. [facility] 2021-06 Yes [id number] 40mg Take 1 [facility] (LIPITOR) 0-31 tablet by ity of 40 mg 00:00: mouth at [place] tablet 00 bedtime. [facility] 2021-06 Yes [id number] 40mg Take 1 [facility] n (LIPITOR) 0-31 tablet by ity of 40 mg 00:00: mouth at [place] tablet 00 bedtime. [facility] 2021-06 Yes [id number] 40mg Take 1 [facility] (LIPITOR) 0-31 tablet by ity of 40 mg 00:00: mouth at [place] tablet 00 bedtime. [facility]06 Yes [id number] 40mg Take 1 [facility] n (LIPITOR) 0-31 tablet by ity of 40 mg 00:00: mouth at [place] tablet 00 bedtime. [facility] 2021-06 Yes [id number] 40mg Take 1 [facility] n (LIPITOR) 0-31 tablet by ity of 40 mg 00:00: mouth at [place] tablet 00 bedtime. [facility] Branch atorvastati 2021-06 Yes [id number] 40mg Take 1 [facility] (LIPITOR) 0-31 tablet by ity of 40 mg 00:00: mouth at [place] tablet 00 bedtime. [facility] Branch atorvastati 2021-06 Yes [id number] 40mg Take 1 [facility] n (LIPITOR) 0-31 tablet by ity of 40 mg 00:00: mouth at [place] tablet 00 bedtime. [facility] Branch atorvastati 2021-06 Yes [id number] 40mg Take 1 [facility] (LIPITOR) 0-31 tablet by ity of 40 mg 00:00: mouth at [place] tablet 00 bedtime. [facility] Branch atorvastati 2021-06 Yes [id number] 40mg Take 1 [facility] (LIPITOR) 0-31 tablet by ity of 40 mg 00:00: mouth at [place] tablet 00 bedtime. [facility] Branch atorvasta 2021-06 Yes [id number] 40mg Take 1 [facility] (LIPITOR) 0-31 tablet by ity of 40 mg 00:00: mouth at [place] tablet 00 bedtime. Medical Branch bumetanide 2021-06 Yes [id number] 4mg Take 2 [facility] 2 mg tablet 0-21 tablets by it y of 00:00: mouth in [place] the Medical morning Branch and 2 tablets in the evening. KCL 2021-06 Yes [id number] 120meq Take 90 mL [facility] mEq/15 mL 0-21 02 by mouth ity of solution 00:00: in the [place] morning Medical and 90 mL Branch in the evening. bumetanide 2021-06 Yes [id number] 4mg Take 2 [facility] 2 mg tablet 0-21 tablets by it y of 00:00: mouth in [place] 00 the Medical morning Branch and 2 tablets in the evening. KCL 2021-06 Yes [id number] 120meq Take 90 mL [facility] mEq/15 mL 0-21 02 by mouth ity of solution 00:00: in the [place] 00 morning Medical and 90 mL Branch in the evening. bumetanide 2021-06 Yes [id number] 4mg Take 2 [facility] 2 mg tablet 0-21 tablets by it y of 00:00: mouth in [place] 00 the Medical morning Branch and 2 tablets in the evening. KCL 2021-06 Yes [id number] 120meq Take 90 mL [facility] mEq/15 mL 0-21 02 by mouth ity of solution 00:00: in the [place] morning Medical and 90 mL Branch in the evening. bumetanide 2021-06 Yes [id number] 4mg Take 2 [facility] 2 mg tablet 0-21 tablets by it y of 00:00: mouth in [place] 00 the Medical morning Branch and 2 tablets in the evening. KCL 2021-06 Yes [id number] 120meq Take 90 mL [facility] mEq/15 mL 0-21 02 by mouth ity of solution 00:00: in the [place] morning Medical and 90 mL Branch in the evening. bumetanide 2021-06 Yes [id number] 4mg Take 2 [facility] 2 mg tablet 0-21 tablets by it y of 00:00: mouth in [place] 00 the Medical morning Branch and 2 tablets in the evening. KCL 2021-06 Yes [id number] 120meq Take 90 mL [facility] mEq/15 mL 0-21 02 by mouth ity of solution 00:00: in the [place] morning Medical and 90 mL Branch in the evening. bumetanide 2021-06 Yes [id number] 4mg Take 2 [facility] 2 mg tablet 0-21 tablets by it y of 00:00: mouth in [place] the Medical morning Branch and 2 tablets in the evening. KCL 2021-06 Yes [id number] 120meq Take 90 mL [facility] mEq/15 mL 0-21 02 by mouth ity of solution 00:00: in the [place] morning Medical and 90 mL Branch in the evening. bumetanide 2021-06 Yes [id number] 4mg Take 2 [facility] 2 mg tablet 0-21 tablets by it y of 00:00: mouth in [place] the Medical morning Branch and 2 tablets in the evening. KCL 2021-06 Yes [id number] 120meq Take 90 mL [facility] mEq/15 mL 0-21 02 by mouth ity of solution 00:00: in the [place] morning Medical and 90 mL Branch in the evening. bumetanide 2021-06 Yes [id number] 4mg Take 2 [facility] 2 mg tablet 0-21 tablets by it y of 00:00: mouth in [place] [address] the Medical morning Branch and 2 tablets in the evening. KCL 2021-06 Yes [id number] 120meq Take 90 mL [facility] mEq/15 mL 0-21 02 by mouth ity of solution 00:00: in the [place] 00 morning Medical and 90 mL Branch in the evening. bumetanide 2021-06 Yes [id number] 4mg Take 2 [facility] 2 mg tablet 0-21 tablets by it y of 00:00: mouth in [place] 00 the Medical morning Branch and 2 tablets in the evening. [facility] 2021-06 Yes [id number] 120meq Take 90 mL [facility] mEq/15 mL 0-21 02 by mouth ity of solution 00:00: in the [place] 00 morning Medical and 90 mL Branch in the evening. bumetanide 2021-06 Yes [id number] 4mg Take 2 [facility] 2 mg tablet 0-21 tablets by it y of 00:00: mouth in [place] 00 the Medical morning Branch and 2 tablets in the evening. [facility] 2021-06 Yes [id number] 120meq Take 90 mL [facility] mEq/15 mL 0-21 02 by mouth ity of solution 00:00: in the [place] morning Medical and 90 mL Branch in the evening. bumetanide 2021-06 Yes [id number] 4mg Take 2 [facility] 2 mg tablet 0-21 tablets by it y of 00:00: mouth in [place] the Medical morning Branch and 2 tablets in the evening. [facility] 2021-06 Yes [id number] 120meq Take 90 mL [facility] mEq/15 mL 0-21 02 by mouth ity of solution 00:00: in the [place] morning Medical and 90 mL Branch in the evening. bumetanide 2021-06 Yes [id number] 4mg Take 2 [facility] 2 mg tablet 0-21 tablets by it y of 00:00: mouth in [place] the Medical morning Branch and 2 tablets in the evening. [facility] 2021-06 Yes [id number] 120meq Take 90 mL [facility] mEq/15 mL 0-21 02 by mouth ity of solution 00:00: in the [place] morning Medical and 90 mL Branch in the evening. bumetanide 2021-06 Yes [id number] 4mg Take 2 [facility] 2 mg tablet 0-21 tablets by it y of 00:00: mouth in [place] 00 the Medical morning Branch and 2 tablets in the evening. [facility] 2021-06 Yes [id number] 120meq Take 90 mL [facility] mEq/15 mL 0-21 02 by mouth ity of solution 00:00: in the [place] 00 morning Medical and 90 mL Branch in the evening. bumetanide 2021-06 Yes [id number] 4mg Take 2 [facility] 2 mg tablet 0-21 tablets by it y of 00:00: mouth in [place] 00 the Medical morning Branch and 2 tablets in the evening. KCL 2021-06 Yes [id number] 120meq Take 90 mL [facility] mEq/15 mL 0-21 02 by mouth ity of solution 00:00: in the [place] 00 morning Medical and 90 mL Branch in the evening. bumetanide 2021-06 Yes [id number] 4mg Take 2 [facility] 2 mg tablet 0-21 tablets by it y of 00:00: mouth in [place] 00 the Medical morning Branch and 2 tablets in the evening. KCL 2021-06 Yes [id number] 120meq Take 90 mL [facility] mEq/15 mL 0-21 02 by mouth ity of solution 00:00: in the [place] 00 morning Medical and 90 mL Branch in the evening. bumetanide 2021-06 Yes [id number] 4mg Take 2 [facility] 2 mg tablet 0-21 tablets by it y of 00:00: mouth in [place] 00 the Medical morning Branch and 2 tablets in the evening. KCL 2021-06 Yes [id number] 120meq Take 90 mL [facility] mEq/15 mL 0-21 02 by mouth ity of solution 00:00: in the [place] 00 morning Medical and 90 mL Branch in the evening. bumetanide 2021-06- No [id number] 4mg Take 2 [facility] 2 mg tablet 0-21 12-27 tablets by i ty of 00:00: 00:00 mouth in [place] 00 :00 the Medical morning Branch and 2 tablets in the evening. KCL 2021-06- No [id number] 120meq Take 90 mL [facility] mEq/15 mL 0-21 12-27 02 by mouth ity o f solution 00:00: 00:00 in the [place] 00 :00 morning Medical and 90 mL Branch in the evening. bumetanide 2021-06- No [id number] 4mg Take 2 [facility] 2 mg tablet 0-21 12-27 tablets by i ty of 00:00: 00:00 mouth in [place] 00 :00 the Medical morning Branch and 2 tablets in the evening. KCL 20 2021-06- No [id number] 120meq Take 90 mL [facility] mEq/15 mL 006-18 02 by mouth ity o f solution 00:00: 00:00 in the [place] 00 :00 morning Medical and 90 mL Branch in the evening. bumetanide 2021-06- No [id number] 4mg Take 2 [facility] 2 mg tablet 06-18 tablets by i ty of 00:00: 00:00 mouth in [place] 00 :00 the Medical morning Branch and 2 tablets in the evening. KCL 20 2021-06- No [id number] 120meq Take 90 mL [facility] mEq/15 mL 006-18 02 by mouth ity o f solution 00:00: 00:00 in the [place] 00 :00 morning Medical and 90 mL Branch in the evening. desvenlafax 2021-06 Yes [id number] 200mg Take 2 [facility] ine 0-20 tablets by ity of succinate 00:00: [facility] [place] the Medical 100 mg 24 morning. Branch hr tablet buPROPion 2021-06 Yes [id number] 150mg Take 1 U nivers XL 150 mg 0-20 tablet by ity o f 24 hr 00:00: mouth in [place] tablet 00 the Medical morning. Branch ARIPiprazol 2021-06 Yes [id number] 15mg Take 1 [facility] e 15 mg 0-20 tablet by ity of tablet 00:00: mouth in [place] 00 the Medical morning. Branch desvenlafax 2021-06 Yes [id number] 200mg Take 2 [facility] ine 0-20 tablets by ity of succinate 00:00: [place] (PRISTIQ[place] 00 the Medical 100 mg 24 morning. Branch hr tablet buPROPion 2021-06 Yes [id number] 150mg Take 1 U nivers XL 150 mg 0-20 tablet by ity o f 24 hr 00:00: mouth in [place] tablet 00 the Medical morning. Branch ARIPiprazol 2021-06 Yes [id number] 15mg Take 1 [facility] e 15 mg 0-20 tablet by ity of tablet 00:00: mouth in [place] 00 the Medical morning. Branch desvenlafax 2021-06 Yes [id number] 200mg Take 2 [facility] ine 0-20 tablets by ity of succinate 00:00: [place] (PRISTIQ[place] 00 the Medical 100 mg 24 morning. Branch hr tablet buPROPion 2021-06 Yes [id number] 150mg Take 1 U nivers XL 150 mg 0-20 tablet by ity o f 24 hr 00:00: mouth in [place] tablet 00 the Medical morning. Branch ARIPiprazol 2021-06 Yes [id number] 15mg Take 1 [facility] e 15 mg 0-20 tablet by ity of tablet 00:00: mouth in [place] 00 the Medical morning. Branch desvenlafax 2021-06 Yes [id number] 200mg Take 2 [facility] ine 0-20 tablets by ity of succinate 00:00: [place] (PRISTIQ[place] 00 the Medical 100 mg 24 morning. Branch hr tablet buPROPion 2021-06 Yes [id number] 150mg Take 1 U nivers XL 150 mg 0-20 tablet by ity o f 24 hr 00:00: mouth in [place] tablet 00 the Medical morning. Branch ARIPiprazol 2021-06 Yes [id number] 15mg Take 1 [facility] e 15 mg 0-20 tablet by ity of tablet 00:00: mouth in [place] 00 the Medical morning. Branch desvenlafax 2021-06 Yes [id number] 200mg Take 2 [facility] ine 0-20 tablets by [facility]y of succinate 00:00: [place] (PRISTIQ[place] 00 the Medical 100 mg 24 morning. Branch hr tablet buPROPion 2021-06 Yes [id number] 150mg Take 1 U nivers XL 150 mg 0-20 tablet by ity o f 24 hr 00:00: mouth in [place] tablet 00 the Medical morning. Branch ARIPiprazol 2021-06 Yes [id number] 15mg Take 1 [facility] e 15 mg 0-20 tablet by ity of tablet 00:00: mouth in [place] 00 the Medical morning. Branch desvenlafax 2021-06 Yes [id number] 200mg Take 2 [facility] ine 0-20 tablets by ity of succinate 00:00: [place] (PRISTIQ[place] 00 the Medical 100 mg 24 morning. Branch hr tablet buPROPion 2021-06 Yes [id number] 150mg Take 1 U nivers XL 150 mg 0-20 tablet by ity o f 24 hr 00:00: mouth in [place] tablet 00 the Medical morning. [place] ARIPiprazol 2021-06 Yes [id number] 15mg Take 1 [facility] e 15 mg 0-20 tablet by ity of tablet 00:00: mouth in [place] 00 the Medical morning. Branch desvenlafax 2021- Yes [id number] 200mg Take 2 [facility] ine 0-20 tablets by ity of succinate 00:00: [place] (PRISTIQ[place] 00 the Medical 100 mg 24 morning. [place] hr tablet buPROPion 2021-06 Yes [id number] 150mg Take 1 U nivers XL 150 mg 0-20 tablet by ity o f 24 hr 00:00: mouth in [place] tablet 00 the Medical morning. Branch ARIPiprazol 2021-06 Yes [id number] 15mg Take 1 [facility] e 15 mg 0-20 tablet by ity of tablet 00:00: mouth in [place] 00 the Medical morning. Branch desvenlafax 2021-06 Yes [id number] 200mg Take 2 [facility] ine 0-20 tablets by ity of succinate 00:00: [place] (PRISTIQ[place] 00 the Medical 100 mg 24 morning. [facility] tablet buPROPion 2021-06 Yes [id number] 150mg Take 1 U nivers XL 150 mg 0-20 tablet by ity o f 24 hr 00:00: mouth in [place] tablet 00 the Medical morning. Branch ARIPiprazol 2021-06 Yes [id number] 15mg Take 1 [facility] e 15 mg 0-20 tablet by ity of tablet 00:00: mouth in [place] 00 the Medical morning. Branch desvenlafax 2021-06 Yes [id number] 200mg Take 2 [facility] ine 0-20 tablets by ity of succinate 00:00: [place] (PRISTIQ[place] 00 the Medical 100 mg 24 morning. [place] hr tablet buPROPion 2021-06 Yes [id number] 150mg Take 1 U nivers XL 150 mg 0-20 tablet by ity o f 24 hr 00:00: mouth in [place] tablet 00 the Medical morning. Branch ARIPiprazol 2021-06 Yes [id number] 15mg Take 1 [facility] e 15 mg 0-20 tablet by ity of tablet 00:00: mouth in [place] 00 the Medical morning. Branch desvenlafax 2021- Yes [id number] 200mg Take 2 [facility] ine 0-20 tablets by ity of succinate 00:00: [place] ([facility]ISTIQ[place] 00 the Medical 100 mg 24 morning. [place] hr tablet buPROPion 2021-06 Yes [id number] 150mg Take 1 U nivers XL 150 mg 0-20 tablet by ity o f 24 hr 00:00: mouth in [place] tablet 00 the Medical morning. Branch ARIPiprazol 2021-06 Yes [id number] 15mg Take 1 [facility] e 15 mg 0-20 tablet by ity of tablet 00:00: mouth in [place] 00 the Medical morning. Branch desvenlafax 2021-06 Yes [id number] 200mg Take 2 [facility] ine 0-20 tablets by ity of succinate 00:00: [place] ([facility]IST[facility] 00 the Medical 100 mg 24 morning. [place] hr tablet buPROPion 2021-06 Yes [id number] 150mg Take 1 U nivers XL 150 mg 0-20 tablet by ity o f 24 hr 00:00: mouth in [place] tablet 00 the Medical morning. [place] ARIPiprazol 2021-06 Yes [id number] 15mg Take 1 [facility] e 15 mg 0-20 tablet by ity of tablet 00:00: mouth in [place] 00 the Medical morning. Branch desvenlafax 2021-06 Yes [id number] 200mg Take 2 [facility] ine 0-20 tablets by ity of succinate 00:00: mouth [place] (PRISTIQ[place] 00 the Medical 100 mg 24 morning. [place] hr tablet buPROPion 2021-06 Yes [id number] 150mg Take 1 U nivers XL 150 mg 0-20 tablet by ity o f 24 hr 00:00: mouth in [place] tablet 00 the Medical morning. Branch ARIPiprazol 2021-06 Yes [id number] 15mg Take 1 [facility] e 15 mg 0-20 tablet by ity of tablet 00:00: mouth in [place] 00 the Medical morning. Branch desvenlafax 2021-06 Yes [id number] 200mg Take 2 [facility] ine 0-20 tablets by ity of succinate 00:00: mouth [place] (PRISTIQ[place] 00 the Medical 100 mg 24 morning. Branch hr tablet buPROPion 2021-06 Yes [id number] 150mg Take 1 U nivers XL 150 mg 0-20 tablet by ity o f 24 hr 00:00: mouth in [place] tablet 00 the Medical morning. Branch ARIPiprazol 2021-06 Yes [id number] 15mg Take 1 [facility] e 15 mg 0-20 tablet by ity of tablet 00:00: mouth in [place] 00 the Medical morning. Branch desvenlafax 2021-06 Yes [id number] 200mg Take 2 [facility] ine 0-20 tablets by ity of succinate 00:00: [place] (PRISTIQ[place] 00 the Medical 100 mg 24 morning. Branch hr tablet buPROPion 2021-06 Yes [id number] 150mg Take 1 U nivers XL 150 mg 0-20 tablet by ity o f 24 hr 00:00: mouth in [place] tablet 00 the Medical morning. Branch ARIPiprazol 2021-06 Yes [id number] 15mg Take 1 [facility] e 15 mg 0-20 tablet by ity of tablet 00:00: mouth in [place] 00 the Medical morning. Branch desvenlafax 2021-06 Yes [id number] 200mg Take 2 [facility] ine 0-20 tablets by ity of succinate 00:00: [place] (PRISTIQ[place] 00 the Medical 100 mg 24 morning. [facility] tablet buPROPion 2021-06 Yes [id number] 150mg Take 1 U nivers XL 150 mg 0-20 tablet by ity o f 24 hr 00:00: mouth in [place] tablet 00 the Medical morning. Branch ARIPiprazol 2021-06 Yes [id number] 15mg Take 1 [facility] e 15 mg 0-20 tablet by ity of tablet 00:00: mouth in [place] 00 the Medical morning. Branch desvenlafax 2021-06 Yes [id number] 200mg Take 2 [facility] ine 0-20 tablets by ity of succinate 00:00: [place]PR[place] 00 the Medical 100 mg 24 morning. [place] hr tablet buPROPion 2021-06 Yes [id number] 150mg Take 1 [facility] XL 150 mg 0-20 tablet by ity o f 24 hr 00:00: mouth in [place] tablet 00 the Medical morning. Branch ARIPiprazol 2021-06 Yes [id number] 15mg Take 1 [facility] 15 mg 0-20 tablet by ity of tablet 00:00: mouth in [place] 00 the Medical morning. Branch desvenlafax 2021-06- No [id number] 200mg Take 2 [facility] ine 0-20 12-22 tablets by ity of succinate 00:00: 00:00 mouth in [place] (PRISTIQ) 00 :00 the Medical 100 mg 24 morning. Branch hr tablet buPROPion 2021-06- No [id number] 150mg Take 1 [facility] XL 150 mg 0-20 12-22 tablet by ity of 24 hr 00:00: 00:00 mouth in [place] tablet 00 :00 the Medical morning. [place] ARIPiprazol 2021-06- No [id number] 15mg Take 1 [facility] e 15 mg 0-20 12-22 tablet by ity of tablet 00:00: 00:00 mouth in [place] 00 :00 the Medical morning. [place] desvenlafax 2021-06- No [id number] 200mg Take 2 [facility] ine 0-20 12-22 tablets by ity of succinate 00:00: 00:00 mouth in [place] (PRISTIQ) 00 :00 the Medical 100 mg 24 morning. Branch hr tablet buPROPion 2021-06- No [id number] 150mg Take 1 [facility] XL 150 mg 0-20 12-22 tablet by ity of 24 hr 00:00: 00:00 mouth in [place] tablet 00 :00 the Medical morning. [place] ARIPiprazol 2021-06- No [id number] 15mg Take 1 [facility] e 15 mg 0-20 12-22 tablet by ity of tablet 00:00: 00:00 mouth in [place] 00 :00 the Medical morning. [place] desvenlafax 2021-06- No [id number] 200mg Take 2 [facility] ine 0-20 12-22 tablets by ity of succinate 00:00: 00:00 mouth in [place] (PRISTIQ) 00 :00 the Medical 100 mg 24 morning. Branch hr tablet buPROPion 2021-06- No [id number] 150mg Take 1 [facility] XL 150 mg 0-20 12-22 tablet by ity of 24 hr 00:00: 00:00 mouth in [place] tablet 00 :00 the Medical morning. Branch ARIPiprazol 2021-06- No [id number] 15mg Take 1 [facility] e 15 mg 0-20 12-22 tablet by ity of tablet 00:00: 00:00 mouth in [place] 00 :00 the Medical morning. [place] desvenlafax 2021-06- No [id number] 200mg Take 2 [facility] ine 0-20 12-22 tablets by ity of succinate 00:00: 00:00 mouth in [place] (PRISTIQ) 00 :00 the Medical 100 mg 24 morning. Branch hr tablet buPROPion 2021-06- No [id number] 150mg Take 1 [facility] XL 150 mg 0-20 12-22 tablet by ity of 24 hr 00:00: 00:00 mouth in [place] tablet 00 :00 the Medical morning. [place] ARIPiprazol 2021-06- No [id number] 15mg Take 1 [facility] e 15 mg 0-20 12-22 tablet by ity of tablet 00:00: 00:00 mouth in [place] 00 :00 the Medical morning. [place] desvenlafax 2021-06- No [id number] 200mg Take 2 [facility] ine 0-20 12-22 tablets by ity of succinate 00:00: 00:00 mouth in [place] (PRISTIQ) 00 :00 the Medical 100 mg 24 morning. Branch hr tablet buPROPion 2021-06- No [id number] 150mg Take 1 [facility] XL 150 mg 0-20 12-22 tablet by ity of 24 hr 00:00: 00:00 mouth in [place] tablet 00 :00 the Medical morning. [place] ARIPiprazol 2021-06- No [id number] 15mg Take 1 [facility] e 15 mg 0-20 12-22 tablet by ity of tablet 00:00: 00:00 mouth in [place] 00 :00 the Medical morning. Branch clonazePAM 2021-06 Yes [id number] Take 1 [facility] 1 mg tablet 0-11 pill PO in it y of 00:00: the AM, 1 [place] 00 PO in the Medical afternoon, Branch 1 pill PO in the evening. May take additional 1/2 pill as needed for acute anxiety. clonazePAM 2021-06 Yes [id number] Take 1 [facility] 1 mg tablet 0-11 pill PO in it y of 00:00: the AM, 1 [place] 00 PO in the Medical afternoon, Branch 1 pill PO in the evening. May take additional 1/2 pill as needed for acute anxiety. clonazePAM 2021-06 Yes [id number] Take 1 [facility] 1 mg tablet 0-11 pill PO in it y of 00:00: the AM, 1 [place] 00 PO in the Medical afternoon, Branch 1 pill PO in the evening. May take additional 1/2 pill as needed for acute anxiety. clonazePAM 2021-06 Yes [id number] Take 1 [facility] 1 mg tablet 0-11 pill PO in it y of 00:00: the AM, 1 [place] 00 PO in the Medical afternoon, Branch 1 pill PO in the evening. May take additional 1/2 pill as needed for acute anxiety. clonazePAM 2021-06 Yes [id number] Take 1 [facility] 1 mg tablet 0-11 pill PO in it y of 00:00: the AM, 1 [place] 00 PO in the Medical afternoon, Branch 1 pill PO in the evening. May take additional 1/2 pill as needed for acute anxiety. clonazePAM 2021-06 Yes [id number] Take 1 [facility] 1 mg tablet 0-11 pill PO in it y of 00:00: the AM, 1 [place] 00 PO in the Medical afternoon, Branch 1 pill PO in the evening. May take additional 1/2 pill as needed for acute anxiety. clonazePAM 2021-06 Yes [id number] Take 1 [facility] 1 mg tablet 0-11 pill PO in it y of 00:00: the AM, 1 [place] 00 PO in the Medical afternoon, Branch 1 pill PO in the evening. May take additional 1/2 pill as needed for acute anxiety. clonazePAM 2021-06 Yes [id number] Take 1 [facility] 1 mg tablet 0-11 pill PO in it y of 00:00: the AM, 1 [place] 00 PO in the Medical afternoon, Branch 1 pill PO in the evening. May take additional 1/2 pill as needed for acute anxiety. clonazePAM 2021-06 Yes [id number] Take 1 [facility] 1 mg tablet 0-11 pill PO in it y of 00:00: the AM, 1 [place] 00 PO in the Medical afternoon, Branch 1 pill PO in the evening. May take additional 1/2 pill as needed for acute anxiety. clonazePAM 2021-06 Yes [id number] Take 1 [facility] 1 mg tablet 0-11 pill PO in it y of 00:00: the AM, 1 [place] 00 PO in the Medical afternoon, Branch 1 pill PO in the evening. May take additional 1/2 pill as needed for acute anxiety. clonazePAM 2021-06 Yes [id number] Take 1 [facility] 1 mg tablet 0-11 pill PO in it y of 00:00: the AM, 1 [place] 00 PO in the Medical afternoon, Branch 1 pill PO in the evening. May take additional 1/2 pill as needed for acute anxiety. clonazePAM 2021-06 Yes [id number] Take 1 [facility] 1 mg tablet 0-11 pill PO in it y of 00:00: the AM, 1 [place] 00 PO in the Medical afternoon, Branch 1 pill PO in the evening. May take additional 1/2 pill as needed for acute anxiety. clonazePAM 2021-06 Yes [id number] Take 1 [facility] 1 mg tablet 0-11 pill PO in it y of 00:00: the AM, 1 [place] 00 PO in the Medical afternoon, Branch 1 pill PO in the evening. May take additional 1/2 pill as needed for acute anxiety. clonazePAM 2021-06 Yes [id number] Take 1 [facility] 1 mg tablet 0-11 pill PO in it y of 00:00: the AM, 1 [place] 00 PO in the Medical afternoon, Branch 1 pill PO in the evening. May take additional 1/2 pill as needed for acute anxiety. clonazePAM 2021-06 Yes [id number] Take 1 [facility] 1 mg tablet 0-11 pill PO in it y of 00:00: the AM, 1 [place] 00 PO in the Medical afternoon, Branch 1 pill PO in the evening. May take additional 1/2 pill as needed for acute anxiety. clonazePAM 2021-06 Yes [id number] Take 1 [facility] 1 mg tablet 0-11 pill PO in it y of 00:00: the AM, 1 [place] 00 PO in the Medical afternoon, Branch 1 pill PO in the evening. May take additional 1/2 pill as needed for acute anxiety. clonazePAM 2021-06- No [id number] Take 1 [facility] 1 mg tablet 0-11 11-06 pill PO in i ty of 00:00: 00:00 the AM, 1 [place] 00 :00 PO in the Medical afternoon, Branch 1 pill PO in the evening. May take additional 1/2 pill as needed for acute anxiety. clonazePAM 2021-06- No [id number] Take 1 [facility] 1 mg tablet 0-11 11-06 pill PO in i ty of 00:00: 00:00 the AM, 1 [place] 00 :00 PO in the Medical afternoon, Branch 1 pill PO in the evening. May take additional 1/2 pill as needed for acute anxiety. KCL 0 Yes [id number] 100meq Take 75 mL [facility] mEq/15 mL 9-20 02 by mouth ity of solution 00:00: in the [place] 00 morning Medical and 75 mL Branch in the evening. KCL 0 Yes [id number] 100meq Take 75 mL [facility] mEq/15 mL 9-20 02 by mouth ity of solution 00:00: in the [place] 00 morning Medical and 75 mL Branch in the evening. KCL 0 Yes [id number] 100meq Take 75 mL [facility] mEq/15 mL 9-20 02 by mouth ity of solution 00:00: in the [place] 00 morning Medical and 75 mL Branch in the evening. KCL 0 Yes [id number] 100meq Take 75 mL [facility] mEq/15 mL 9-20 02 by mouth ity of solution 00:00: in the [place] 00 morning Medical and 75 mL Branch in the evening. KCL Yes [id number] 100meq Take 75 mL [facility] mEq/15 mL 9-20 02 by mouth ity of solution 00:00: in the [place] 00 morning Medical and 75 mL Branch in the evening. KCL 0 Yes [id number] 100meq Take 75 mL [facility] mEq/15 mL 9-20 02 by mouth ity of solution 00:00: in the [place] 00 morning Medical and 75 mL Branch in the evening. KCL 0 Yes [id number] 100meq Take 75 mL [facility] mEq/15 mL 9-20 02 by mouth ity of solution 00:00: in the [place] 00 morning Medical and 75 mL Branch in the evening. KCL 0 Yes [id number] 100meq Take 75 mL [facility] mEq/15 mL 9-20 02 by mouth ity of solution 00:00: in the [place] 00 morning Medical and 75 mL Branch in the evening. KCL 0 Yes [id number] 100meq Take 75 mL [facility] mEq/15 mL 9-20 02 by mouth ity of solution 00:00: in the [place] 00 morning Medical and 75 mL Branch in the evening. KCL 0 Yes [id number] 100meq Take 75 mL [facility] mEq/15 mL 9-20 02 by mouth ity of solution 00:00: in the [place] 00 morning Medical and 75 mL Branch in the evening. KCL Yes [id number] 100meq Take 75 mL [facility] mEq/15 mL 9-20 02 by mouth ity of solution 00:00: in the [place] 00 morning Medical and 75 mL Branch in the evening. KCL Yes [id number] 100meq Take 75 mL [facility] mEq/15 mL 9-20 02 by mouth ity of solution 00:00: in the [place] 00 morning Medical and 75 mL Branch in the evening. KCL Yes [id number] 100meq Take 75 mL [facility] mEq/15 mL 9-20 02 by mouth ity of solution 00:00: in the [place] 00 morning Medical and 75 mL Branch in the evening. KCL 2021- No [id number] 100meq Take 75 mL [facility] mEq/15 mL 9-20 10-21 02 by mouth ity o f solution 00:00: 00:00 in the [place] 00 :00 morning Medical and 75 mL Branch in the evening. KCL 2021- No [id number] 100meq Take 75 mL [facility] mEq/15 mL 9-20 10-21 02 by mouth ity o f solution 00:00: 00:00 in the [place] 00 :00 morning Medical and 75 mL Branch in the evening. KCL 2- No [id number] 100meq Take 75 mL [facility] mEq/15 mL 9-20 10-21 02 by mouth ity o f solution 00:00: 00:00 in the [place] 00 :00 morning Medical and 75 mL Branch in the evening. testosteron Yes [id number] 20.25mg Apply 1 [facility] e 20.25 9-19 Pump to ity of mg/1.25 00:00: [place] gram (1.62 00 the Medical %) gel pump morning. Bran ch testosteron Yes [id number] 20.25mg Apply 1 [facility] e 20.25 9-19 Pump to ity of mg/1.25 00:00: [place] gram (1.62 00 the Medical %) gel pump morning. [facility] ch testosteron Yes [id number] 20.25mg Apply 1 [facility] e 20.25 9-19 Pump to ity of mg/1.25 00:00: [place] gram (1.62 00 the Medical %) gel pump morning. Johann ch testosteron Yes [id number] 20.25mg Apply 1 [facility] e 20.25 9-19 Pump to ity of mg/1.25 00:00: [place] gram (1.62 00 the Medical %) gel pump morning. [facility] ch testosteron Yes [id number] 20.25mg Apply 1 [facility] e 20.25 9-19 Pump to ity of mg/1.25 00:00: [place] gram (1.62 00 the Medical %) gel pump morning. Johann stephens testosteron Yes [id number] 20.25mg Apply 1 [facility] e 20.25 9-19 Pump to ity of mg/1.25 00:00: [place] gram (1.62 00 the Medical %) gel pump morning. [facility] ch testosteron Yes [id number] 20.25mg Apply 1 [facility] e 20.25 9-19 Pump to ity of mg/1.25 00:00: [place] gram (1.62 00 the Medical %) gel pump morning. Johann stephens testosteron Yes [id number] 20.25mg Apply 1 [facility] e 20.25 9-19 Pump to ity of mg/1.25 00:00: [place] gram (1.62 00 the Medical %) gel pump morning. [facility] ch testosteron Yes [id number] 20.25mg Apply 1 [facility] e 20.25 9-19 Pump to ity of mg/1.25 00:00: [place] gram (1.62 00 the Medical %) gel pump morning. [facility] ch testosteron Yes [id number] 20.25mg Apply 1 [facility] e 20.25 9-19 Pump to ity of mg/1.25 00:00: [place] gram (1.62 00 the Medical %) gel pump morning. [facility] ch testosteron 0 Yes [id number] 20.25mg Apply 1 [facility] e 20.25 9-19 Pump to ity of mg/1.25 00:00: [place] gram (1.62 00 the Medical %) gel pump morning. [facility] ch testosteron 0 Yes [id number] 20.25mg Apply 1 [facility] e 20.25 9-19 Pump to ity of mg/1.25 00:00: [place] gram (1.62 00 the Medical %) gel pump morning. [facility] ch testosteron 0 Yes [id number] 20.25mg Apply 1 [facility] e 20.25 9-19 Pump to ity of mg/1.25 00:00: [place] gram (1.62 00 the Medical %) gel pump morning. [facility] ch testosteron Yes [id number] 20.25mg Apply 1 [facility] e 20.25 9-19 Pump to ity of mg/1.25 00:00: [place] gram (1.62 00 the Medical %) gel pump morning. [facility] ch testosteron Yes [id number] 20.25mg Apply 1 [facility] e 20.25 9-19 Pump to ity of mg/1.25 00:00: [place] gram (1.62 00 the Medical %) gel pump morning. [facility] ch testosteron 0 Yes [id number] 20.25mg Apply 1 [facility] e 20.25 9-19 Pump to ity of mg/1.25 00:00: [place] gram (1.62 00 the Medical %) gel pump morning. [facility] ch testosteron 0 Yes [id number] 20.25mg Apply 1 [facility] e 20.25 9-19 Pump to ity of mg/1.25 00:00: [place] gram (1.62 00 the Medical %) gel pump morning. [facility] ch testosteron 0 Yes [id number] 20.25mg Apply 1 [facility] e 20.25 9-19 Pump to ity of mg/1.25 00:00: [place] gram (1.62 00 the Medical %) gel pump morning. [facility] ch testosteron Yes [id number] 20.25mg Apply 1 [facility] e 20.25 9-19 Pump to ity of mg/1.25 00:00: [place] gram (1.62 00 the Medical %) gel pump morning. [facility] ch testosteron 0 Yes [id number] 20.25mg Apply 1 [facility] e 20.25 9-19 Pump to ity of mg/1.25 00:00: [place] gram (1.62 00 the Medical %) gel pump morning. [facility] ch testosteron Yes [id number] 20.25mg Apply 1 [facility] e 20.25 9-19 Pump to ity of mg/1.25 00:00: [place] gram (1.62 00 the Medical %) gel pump morning. [facility] ch testosteron Yes [id number] 20.25mg Apply 1 [facility] e 20.25 9-19 Pump to ity of mg/1.25 00:00: [place] gram (1.62 00 the Medical %) gel pump morning. [facility] ch testosteron Yes [id number] 20.25mg Apply 1 [facility] e 20.25 9-19 Pump to ity of mg/1.25 00:00: [place] gram (1.62 00 the Medical %) gel pump morning. [facility] ch testosteron Yes [id number] 20.25mg Apply 1 [facility] e 20.25 9-19 Pump to ity of mg/1.25 00:00: [place] gram (1.62 00 the Medical %) gel pump morning. [facility] ch testosteron 0 Yes [id number] 20.25mg Apply 1 [facility] e 20.25 9-19 Pump to ity of mg/1.25 00:00: [place] gram (1.62 00 the Medical %) gel pump morning. [facility] ch testosteron Yes [id number] 20.25mg Apply 1 [facility] e 20.25 9-19 Pump to ity of mg/1.25 00:00: [place] gram (1.62 00 the Medical %) gel pump morning. Johann stephens testosteron Yes [id number] 20.25mg Apply 1 [facility] e 20.25 9-19 Pump to ity of mg/1.25 00:00: [place] gram (1.62 00 the Medical %) gel pump morning. Johann stephens testosteron Yes [id number] 20.25mg Apply 1 [facility] e 20.25 9-19 Pump to ity of mg/1.25 00:00: [place] gram (1.62 00 the Medical %) gel pump morning. Johann stephens testosteron Yes [id number] 20.25mg Apply 1 [facility] e 20.25 9-19 Pump to ity of mg/1.25 00:00: [place] gram (1.62 00 the Medical %) gel pump morning. Johann stephens testosteron Yes [id number] 20.25mg Apply 1 [facility] e 20.25 9-19 Pump to ity of mg/1.25 00:00: [place] gram (1.62 00 the Medical %) gel pump morning. Johann stephens testosteron 2021- No [id number] 20.25mg Apply 1 [facility] e 20.25 9-19 12-26 Pump to ity of mg/1.25 00:00: 00:00 area(s) in [place] gram (1.62 00 :00 the Medical %) gel pump morning. Johann stephens testosteron 2021- No [id number] 20.25mg Apply 1 [facility] e 20.25 9-19 12-26 Pump to ity of mg/1.25 00:00: 00:00 area(s) in [place] gram (1.62 00 :00 the Medical %) gel pump morning. Johann stephens testosteron 2021- No [id number] 20.25mg Apply 1 [facility] e 20.25 9-19 12-26 Pump to ity of mg/1.25 00:00: 00:00 area(s) in [place] as gram (1.62 00 :00 the Medical %) gel pump morning. [facility] ARIPiprazol 2021-0 Yes [id number] 15mg Take 1 [facility] e 15 mg 9-15 tablet by ity of tablet 00:00: mouth in [place] 00 the Medical morning. [place] ARIPiprazol 2021-0 Yes [id number] 15mg Take 1 [facility] e 15 mg 9-15 tablet by ity of tablet 00:00: mouth in [place] 00 the Medical morning. Branch ARIPiprazol 2021-0 Yes [id number] 15mg Take 1 [facility] e 15 mg 9-15 tablet by ity of tablet 00:00: mouth in [place] 00 the Medical morning. Branch ARIPiprazol 2021-0 Yes [id number] 15mg Take 1 [facility] e 15 mg 9-15 tablet by ity of tablet 00:00: mouth in [place] 00 the Medical morning. Branch ARIPiprazol 2021-0 Yes [id number] 15mg Take 1 [facility] e 15 mg 9-15 tablet by ity of tablet 00:00: mouth in [place] 00 the Medical morning. [place] ARIPiprazol 2021-0 Yes [id number] 15mg Take 1 [facility] e 15 mg 9-15 tablet by ity of tablet 00:00: mouth in [place] 00 the Medical morning. Branch ARIPiprazol 2021-0 Yes [id number] 15mg Take 1 [facility] e 15 mg 9-15 tablet by ity of tablet 00:00: mouth in [place] 00 the Medical morning. [place] ARIPiprazol 2021-0 Yes [id number] 15mg Take 1 [facility] e 15 mg 9-15 tablet by ity of tablet 00:00: mouth in [place] 00 the Medical morning. [place] ARIPiprazol 2021-0 Yes [id number] 15mg Take 1 [facility] e 15 mg 9-15 tablet by ity of tablet 00:00: mouth in [place] 00 the Medical morning. Branch ARIPiprazol 2021-0 Yes [id number] 15mg Take 1 [facility] e 15 mg 9-15 tablet by ity of tablet 00:00: mouth in [place] 00 the Medical morning. Branch ARIPiprazol 2021-0 Yes [id number] 15mg Take 1 [facility] e 15 mg 9-15 tablet by ity of tablet 00:00: mouth in [place] 00 the Medical morning. [place] ARIPiprazol 2021-0 Yes [id number] 15mg Take 1 [facility] e 15 mg 9-15 tablet by ity of tablet 00:00: mouth in [place] 00 the Medical morning. Branch ARIPiprazol 2021- No [id number] 15mg Take 1 [facility] e 15 mg 9-15 10-20 tablet by ity of tablet 00:00: 00:00 mouth in [place] 00 :00 the Medical morning. Branch ARIPiprazol 2021- No [id number] 15mg Take 1 [facility] e 15 mg 9-15 10-20 tablet by ity of tablet 00:00: 00:00 mouth in [place] 00 :00 the Medical morning. Branch ARIPiprazol 2021- No [id number] 15mg Take 1 [facility] e 15 mg 9-15 10-20 tablet by ity of tablet 00:00: 00:00 mouth in [place] 00 :00 the Medical morning. Branch ARIPiprazol 2021- No [id number] 15mg Take 1 [facility] e 15 mg 9-15 10-20 tablet by ity of tablet 00:00: 00:00 mouth in [place] 00 :00 the Medical morning. Branch ARIPiprazol 2021- No [id number] 15mg Take 1 [facility] e 15 mg 9-15 10-20 tablet by ity of tablet 00:00: 00:00 mouth in [place] 00 :00 the Medical morning. Branch clonazePAM 2021-0 Yes [id number] Take 1 U nivers 1 mg tablet 9-13 pill PO in it y of 00:00: the AM, 1 [place] 00 PO in the Medical afternoon, Branch 1 pill PO in the evening. May take additional 1/2 pill as needed for acute anxiety. desvenlafax 2-0 Yes [id number] 200mg Take 2 [facility] ine 9-13 tablets by ity of succinate 00:00: [facility] [place] the Medical 100 mg 24 morning. Branch hr tablet clonazePAM 2-0 Yes [id number] Take 1 [facility] nivers 1 mg tablet 9-13 pill PO in it y of 00:00: the AM, 1 [place] 00 PO in the Medical afternoon, Branch 1 pill PO in the evening. May take additional 1/2 pill as needed for acute anxiety. desvenlafax 2-0 Yes [id number] 200mg Take 2 [facility] ine 9-13 tablets by ity of succinate 00:00: [place] (PRISTIQ[place] 00 the Medical 100 mg 24 morning. Branch hr tablet clonazePAM 2022-0 Yes [id number] Take 1 U nivers 1 mg tablet 9-13 pill PO in it y of 00:00: the AM, 1 [place] 00 PO in the Medical afternoon, Branch 1 pill PO in the evening. May take additional 1/2 pill as needed for acute anxiety. desvenlafax 2022-0 Yes [id number] 200mg Take 2 [facility] ine 9-13 tablets by ity of succinate 00:00: [place] (PRISTIQ[place] 00 the Medical 100 mg 24 morning. Branch hr tablet clonazePAM 2-0 Yes [id number] Take 1 U nivers 1 mg tablet 9-13 pill PO in it y of 00:00: the AM, 1 [place] 00 PO in the Medical afternoon, Branch 1 pill PO in the evening. May take additional 1/2 pill as needed for acute anxiety. desvenlafax 2022-0 Yes [id number] 200mg Take 2 [facility] ine 9-13 tablets by ity of succinate 00:00: [place] (PRISTIQ[place] 00 the Medical 100 mg 24 morning. Branch hr tablet clonazePAM 2021-0 Yes [id number] Take 1 U nivers 1 mg tablet 9-13 pill PO in it y of 00:00: the AM, 1 [place] 00 PO in the Medical afternoon, Branch 1 pill PO in the evening. May take additional 1/2 pill as needed for acute anxiety. desvenlafax 2022-0 Yes [id number] 200mg Take 2 [facility] ine 9-13 tablets by ity of succinate 00:00: [place] (PRISTIQ[place] 00 the Medical 100 mg 24 morning. Branch hr tablet desvenlafax 2022-0 Yes [id number] 200mg Take 2 [facility] ine 9-13 tablets by ity of succinate 00:00: [place] (PRISTIQ[place] 00 the Medical 100 mg 24 morning. Branch hr tablet desvenlafax 2022-0 Yes [id number] 200mg Take 2 [facility] ine 9-13 tablets by ity of succinate 00:00: [place] (PRISTIQ[place] 00 the Medical 100 mg 24 morning. Branch hr tablet desvenlafax 2022-0 Yes [id number] 200mg Take 2 [facility] ine 9-13 tablets by ity of succinate 00:00: [place] (PRISTIQ[place] 00 the Medical 100 mg 24 morning. Branch hr tablet desvenlafax 2022-0 Yes [id number] 200mg Take 2 [facility] ine 9-13 tablets by ity of succinate 00:00: [place] (PRISTIQ[place] 00 the Medical 100 mg 24 morning. Branch hr tablet desvenlafax 2022-0 Yes [id number] 200mg Take 2 [facility] ine 9-13 tablets by ity of succinate 00:00: [place] (PRISTIQ[place] 00 the Medical 100 mg 24 morning. Branch hr tablet desvenlafax 2022-0 Yes [id number] 200mg Take 2 [facility] ine 9-13 tablets by ity of succinate 00:00: [place] (PRISTIQ[place] 00 the Medical 100 mg 24 morning. Branch hr tablet desvenlafax 2022-0 Yes [id number] 200mg Take 2 [facility] ine 9-13 tablets by ity of succinate 00:00: [place] (PRISTIQ[place] 00 the Medical 100 mg 24 morning. Branch hr tablet desvenlafax 2-0 2- No [id number] 200mg Take 2 [facility] ine 9-13 10-20 tablets by ity of succinate 00:00: 00:00 mouth in [place] as (PRISTIQ) 00 :00 the Medical 100 mg 24 morning. Branch hr tablet desvenlafax 2-0 2022- No [id number] 200mg Take 2 [facility] ine 9-13 10-20 tablets by ity of succinate 00:00: 00:00 mouth in [place] as (PRISTIQ) 00 :00 the Medical 100 mg 24 morning. Branch hr tablet desvenlafax 2022-0 2022- No [id number] 200mg Take 2 [facility] ine 9-13 10-20 tablets by ity of succinate 00:00: 00:00 mouth in [place] as (PRISTIQ) 00 :00 the Medical 100 mg 24 morning. Branch hr tablet desvenlafax 2022-0 2022- No [id number] 200mg Take 2 [facility] ine 9-13 10-20 tablets by ity of succinate 00:00: 00:00 mouth in [place] as (PRISTIQ) 00 :00 the Medical 100 mg 24 morning. Branch hr tablet desvenlafax No [id number] 200mg Take 2 [facility] ine 9-13 10-20 tablets by ity of succinate 00:00: 00:00 mouth in [place] as (PRISTIQ) 00 :00 the Medical 100 mg 24 morning. Branch hr tablet clonazePAM No [id number] Take 1 [facility] 1 mg tablet 9-13 10-10 pill PO in i ty of 00:00: 00:00 the AM, 1 [place] 00 :00 PO in the Medical afternoon, Branch 1 pill PO in the evening. May take additional 1/2 pill as needed for acute anxiety. clonazePAM 2021- No [id number] Take 1 [facility] 1 mg tablet 9-13 10-10 pill PO in i ty of 00:00: 00:00 the AM, 1 [place] 00 :00 PO in the Medical afternoon, Branch 1 pill PO in the evening. May take additional 1/2 pill as needed for acute anxiety. clonazePAM 2021- No [id number] Take 1 [facility] 1 mg tablet 9-13 10-10 pill PO in i ty of 00:00: 00:00 the AM, 1 [place] 00 :00 PO in the Medical afternoon, Branch 1 pill PO in the evening. May take additional 1/2 pill as needed for acute anxiety. clonazePAM No [id number] Take 1 [facility] 1 mg tablet 9-13 10-10 pill PO in i ty of 00:00: 00:00 the AM, 1 [place] 00 :00 PO in the Medical afternoon, Branch 1 pill PO in the evening. May take additional 1/2 pill as needed for acute anxiety. clonazePAM No [id number] Take 1 [facility] 1 mg tablet 9-13 10-10 pill PO in i ty of 00:00: 00:00 the AM, 1 [place] 00 :00 PO in the Medical afternoon, Branch 1 pill PO in the evening. May take additional 1/2 pill as needed for acute anxiety. clonazePAM 2021- No [id number] Take 1 [facility] 1 mg tablet 9-13 10-10 pill PO in i ty of 00:00: 00:00 the AM, 1 [place] 00 :00 PO in the Medical afternoon, Branch 1 pill PO in the evening. May take additional 1/2 pill as needed for acute anxiety. clonazePAM 2021- No [id number] Take 1 [facility] 1 mg tablet 9-13 10-10 pill PO in i ty of 00:00: 00:00 the AM, 1 [place] 00 :00 PO in the Medical afternoon, Branch 1 pill PO in the evening. May take additional 1/2 pill as needed for acute anxiety. clonazePAM 2021- No [id number] Take 1 [facility] 1 mg tablet 9-13 10-10 pill PO in i ty of 00:00: 00:00 the AM, 1 [place] 00 :00 PO in the Medical afternoon, Branch 1 pill PO in the evening. May take additional 1/2 pill as needed for acute anxiety. Ranolazine 0 Yes TAKE 1 [facility] rs 1,000 mg 9-09 TABLET BY ity of tablet 00:00: MOUTH TWICE Medical DAILY Branch Ranolazine 2021-0 Yes TAKE 1 [facility] rs 1,000 mg 9-09 TABLET BY ity of tablet 00:00: MOUTH TWICE Medical DAILY Branch Ranolazine 2021-0 Yes TAKE 1 [facility] rs 1,000 mg 9-09 TABLET BY ity of tablet 00:00: MOUTH 00 TWICE Medical DAILY Branch Ranolazine 2021-0 Yes TAKE 1 [facility] rs 1,000 mg 9-09 TABLET BY ity of tablet 00:00: MOUTH TWICE Medical DAILY Branch Ranolazine 2021-0 Yes TAKE 1 [facility] rs 1,000 mg 9-09 TABLET BY ity of tablet 00:00: MOUTH TWICE Medical DAILY Branch Ranolazine 2021-0 Yes TAKE 1 [facility] rs 1,000 mg 9-09 TABLET BY ity of tablet 00:00: MOUTH 00 TWICE Medical DAILY Branch Ranolazine 2021-0 Yes TAKE 1 [facility] rs 1,000 mg 9-09 TABLET BY ity of tablet 00:00: MOUTH 00 TWICE Medical DAILY Branch Ranolazine 2021-0 Yes TAKE 1 [facility] rs 1,000 mg 9-09 TABLET BY ity of tablet 00:00: MOUTH 00 TWICE Medical DAILY Branch Ranolazine 2021-0 Yes TAKE 1 [facility] rs 1,000 mg 9-09 TABLET BY ity of tablet 00:00: MOUTH 00 TWICE Medical DAILY Branch Ranolazine 2022-0 2022- No TAKE 1 [facility] ers 1,000 mg 9-09 10-20 TABLET BY ity o f tablet 00:00: 00:00 MOUTH [place] 00 :00 TWICE Medical DAILY Branch Ranolazine 2022-0 2022- No TAKE 1 [facility] ers 1,000 mg 9-09 10-20 TABLET BY ity o f tablet 00:00: 00:00 MOUTH [place] 00 :00 TWICE Medical DAILY Branch Ranolazine 2022-0 Yes 1000mg Take 1 [facility] vers 1,000 mg 9-08 tablet by ity of tablet 00:00: mouth in [place] 00 the Medical morning Branch and 1 tablet in the evening. Ranolazine 2022-0 Yes 1000mg Take 1 [facility] vers 1,000 mg 9-08 tablet by ity of tablet 00:00: mouth in [place] 00 the Medical morning Branch and 1 tablet in the evening. Ranolazine 2022-0 Yes 1000mg Take 1 [facility] vers 1,000 mg 9-08 tablet by ity of tablet 00:00: mouth in [place] 00 the Medical morning Branch and 1 tablet in the evening. Ranolazine 2022-0 Yes 1000mg Take 1 [facility] vers 1,000 mg 9-08 tablet by ity of tablet 00:00: mouth in [place] 00 the Medical morning Branch and 1 tablet in the evening. Ranolazine 2022-0 Yes 1000mg Take 1 [facility] vers 1,000 mg 9-08 tablet by ity of tablet 00:00: mouth in [place] 00 the Medical morning Branch and 1 tablet in the evening. Ranolazine 2022-0 Yes 1000mg Take 1 [facility] vers 1,000 mg 9-08 tablet by ity of tablet 00:00: mouth in [place] 00 the Medical morning Branch and 1 tablet in the evening. Ranolazine 2022-0 Yes 1000mg Take 1 [facility] vers 1,000 mg 9-08 tablet by ity of tablet 00:00: mouth in [place] 00 the Medical morning Branch and 1 tablet in the evening. Ranolazine 2022-0 Yes 1000mg Take 1 [facility] vers 1,000 mg 9-08 tablet by ity of tablet 00:00: mouth in [place] [address] the Medical morning Branch and 1 tablet in the evening. Ranolazine 2022-0 Yes 1000mg Take 1 [facility] vers 1,000 mg 9-08 tablet by ity of tablet 00:00: mouth in [place] 00 the Medical morning Branch and 1 tablet in the evening. Ranolazine 2022-0 Yes 1000mg Take 1 [facility] vers 1,000 mg 9-08 tablet by ity of tablet 00:00: mouth in [place] [address] the Medical morning Branch and 1 tablet in the evening. Ranolazine 2022-0 Yes 1000mg Take 1 [facility] vers 1,000 mg 9-08 tablet by ity of tablet 00:00: mouth in [place] [address] the Medical morning Branch and 1 tablet in the evening. Ranolazine 2022-0 Yes 1000mg Take 1 [facility] vers 1,000 mg 9-08 tablet by ity of tablet 00:00: mouth in [place] [address] the Medical morning Branch and 1 tablet in the evening. Ranolazine 2022-0 Yes 1000mg Take 1 [facility] vers 1,000 mg 9-08 tablet by ity of tablet 00:00: mouth in [place] [address] the [facility] morning [place] and 1 tablet in the evening. Ranolazine 2022-0 Yes 1000mg Take 1 [facility] vers 1,000 mg 9-08 tablet by ity of tablet 00:00: mouth in [address] Medical morning [place] and 1 tablet in the evening. Ranolazine 2022-0 Yes 1000mg Take 1 [facility] vers 1,000 mg 9-08 tablet by ity of tablet 00:00: mouth in [place] [address] the [facility] morning [place] and 1 tablet in the evening. Ranolazine 2022-0 Yes 1000mg Take 1 [facility] vers 1,000 mg 9-08 tablet by ity of tablet 00:00: mouth in [place] [address] the [facility] morning [place] and 1 tablet in the evening. Ranolazine 2022-0 Yes 1000mg Take 1 [facility] vers 1,000 mg 9-08 tablet by ity of tablet 00:00: mouth in [address] morning [place] and 1 tablet in the evening. Ranolazine 2022-0 Yes 1000mg Take 1 [facility] vers 1,000 mg 9-08 tablet by ity of tablet 00:00: mouth in [address] morning [place] and 1 tablet in the evening. Ranolazine 2022-0 Yes 1000mg Take 1 [facility] vers 1,000 mg 9-08 tablet by ity of tablet 00:00: mouth in [address] morning [place] and 1 tablet in the evening. Ranolazine 2022-0 Yes 1000mg Take 1 [facility] vers 1,000 mg 9-08 tablet by ity of tablet 00:00: mouth in [place] [address] the Medical morning Branch and 1 tablet in the evening. Ranolazine 2022-0 Yes 1000mg Take 1 [facility] vers 1,000 mg 9-08 tablet by ity of tablet 00:00: mouth in [place] [address] the Medical morning Branch and 1 tablet in the evening. Ranolazine 2022-0 Yes 1000mg Take 1 [facility] vers 1,000 mg 9-08 tablet by ity of tablet 00:00: mouth in [place] [address] the Medical morning Branch and 1 tablet in the evening. Ranolazine 2022-0 Yes 1000mg Take 1 [facility] vers 1,000 mg 9-08 tablet by ity of tablet 00:00: mouth in [place] [address] the Medical morning Branch and 1 tablet in the evening. Ranolazine 2022-0 Yes 1000mg Take 1 [facility] vers 1,000 mg 9-08 tablet by ity of tablet 00:00: mouth in [place] [address] the Medical morning Branch and 1 tablet in the evening. Ranolazine 2022-0 Yes 1000mg Take 1 [facility] vers 1,000 mg 9-08 tablet by ity of tablet 00:00: mouth in [place] [address] the Medical morning Branch and 1 tablet in the evening. Ranolazine 2022-0 Yes 1000mg Take 1 [facility] vers 1,000 mg 9-08 tablet by ity of tablet 00:00: mouth in [place] [address] the Medical morning Branch and 1 tablet in the evening. Ranolazine 2022-0 Yes 1000mg Take 1 [facility] vers 1,000 mg 9-08 tablet by ity of tablet 00:00: mouth in [place] [address] the Medical morning Branch and 1 tablet in the evening. Ranolazine 2022-0 Yes 1000mg Take 1 [facility] vers 1,000 mg 9-08 tablet by ity of tablet 00:00: mouth in [place] [address] the Medical morning Branch and 1 tablet in the evening. Ranolazine 2022-0 Yes 1000mg Take 1 [facility] vers 1,000 mg 9-08 tablet by ity of tablet 00:00: mouth in [place] [address] the [facility] morning [place] and 1 tablet in the evening. Ranolazine 2022-0 Yes 1000mg Take 1 [facility] vers 1,000 mg 9-08 tablet by ity of tablet 00:00: mouth in [address] Medical morning Branch and 1 tablet in the evening. Ranolazine 2022-0 Yes 1000mg Take 1 [facility] vers 1,000 mg 9-08 tablet by ity of tablet 00:00: mouth in [place] 00 the Medical morning Branch and 1 tablet in the evening. Ranolazine 2022-0 Yes 1000mg Take 1 [facility] vers 1,000 mg 9-08 tablet by ity of tablet 00:00: mouth in [place] [address] the Medical morning Branch and 1 tablet in the evening. Ranolazine 2022-0 Yes 1000mg Take 1 [facility] vers 1,000 mg 9-08 tablet by ity of tablet 00:00: mouth in [place] [address] the Medical morning Branch and 1 tablet in the evening. Ranolazine 2022-0 Yes 1000mg Take 1 [facility] vers 1,000 mg 9-08 tablet by ity of tablet 00:00: mouth in [place] [address] the Medical morning Branch and 1 tablet in the evening. Ranolazine 2022-0 Yes 1000mg Take 1 [facility] vers 1,000 mg 9-08 tablet by ity of tablet 00:00: mouth in [place] [address] the Medical morning Branch and 1 tablet in the evening. Ranolazine 2022-0 Yes 1000mg Take 1 [facility] vers 1,000 mg 9-08 tablet by ity of tablet 00:00: mouth in [place] [address] the Medical morning Branch and 1 tablet in the evening. Ranolazine 2022-0 Yes 1000mg Take 1 [facility] vers 1,000 mg 9-08 tablet by ity of tablet 00:00: mouth in [place] [address] the Medical morning [place] and 1 tablet in the evening. Ranolazine 2022-0 Yes 1000mg Take 1 [facility] vers 1,000 mg 9-08 tablet by ity of tablet 00:00: mouth in [place] [address] the Medical morning Branch and 1 tablet in the evening. Ranolazine 2022-0 Yes 1000mg Take 1 [facility] vers 1,000 mg 9-08 tablet by ity of tablet 00:00: mouth in [place] [address] the Medical morning Branch and 1 tablet in the evening. Ranolazine 2022-0 Yes 1000mg Take 1 [facility] vers 1,000 mg 9-08 tablet by ity of tablet 00:00: mouth in [place] [address] the Medical morning Branch and 1 tablet in the evening. Ranolazine 2022-0 Yes 1000mg Take 1 [facility] vers 1,000 mg 9-08 tablet by ity of tablet 00:00: mouth in [place] [address] the Medical morning [place] and 1 tablet in the evening. Ranolazine 2022-0 Yes 1000mg Take 1 [facility] vers 1,000 mg 9-08 tablet by ity of tablet 00:00: mouth in [place] [address] the [facility] morning Branch and 1 tablet in the evening. Ranolazine 2022-0 Yes 1000mg Take 1 [facility] vers 1,000 mg 9-08 tablet by ity of tablet 00:00: mouth in [place] [address] the Medical morning Branch and 1 tablet in the evening. Ranolazine 2022-0 Yes 1000mg Take 1 [facility] vers 1,000 mg 9-08 tablet by ity of tablet 00:00: mouth in [place] [address] the Medical morning Branch and 1 tablet in the evening. Ranolazine 2022-0 Yes 1000mg Take 1 [facility] vers 1,000 mg 9-08 tablet by ity of tablet 00:00: mouth in [place] [address] the [facility] morning [place] and 1 tablet in the evening. Ranolazine 2022-0 Yes 1000mg Take 1 [facility] vers 1,000 mg 9-08 tablet by ity of tablet 00:00: mouth in [address] Medical morning [place] and 1 tablet in the evening. Ranolazine 2022-0 Yes 1000mg Take 1 [facility] vers 1,000 mg 9-08 tablet by ity of tablet 00:00: mouth in [place] [address] the [facility] morning [place] and 1 tablet in the evening. Ranolazine 2022-0 Yes 1000mg Take 1 [facility] vers 1,000 mg 9-08 tablet by ity of tablet 00:00: mouth in [address] morning [place] and 1 tablet in the evening. Ranolazine 2022-0 Yes 1000mg Take 1 [facility] vers 1,000 mg 9-08 tablet by ity of tablet 00:00: mouth in [address] morning [place] and 1 tablet in the evening. Ranolazine 2022-0 Yes 1000mg Take 1 [facility] vers 1,000 mg 9-08 tablet by ity of tablet 00:00: mouth in [address] morning [place] and 1 tablet in the evening. Ranolazine 2022-0 Yes 1000mg Take 1 [facility] vers 1,000 mg 9-08 tablet by ity of tablet 00:00: mouth in [address] morning [place] and 1 tablet in the evening. Ranolazine 2022-0 Yes 1000mg Take 1 [facility] vers 1,000 mg 9-08 tablet by ity of tablet 00:00: mouth in [place] [address] the Medical morning Branch and 1 tablet in the evening. Ranolazine 2022-0 Yes 1000mg Take 1 [facility] vers 1,000 mg 9-08 tablet by ity of tablet 00:00: mouth in [place] [address] the Medical morning Branch and 1 tablet in the evening. Ranolazine 2022-0 Yes 1000mg Take 1 [facility] vers 1,000 mg 9-08 tablet by ity of tablet 00:00: mouth in [place] [address] the Medical morning Branch and 1 tablet in the evening. Ranolazine 2022-0 Yes 1000mg Take 1 [facility] vers 1,000 mg 9-08 tablet by ity of tablet 00:00: mouth in [place] [address] the Medical morning Branch and 1 tablet in the evening. Ranolazine 2022-0 Yes 1000mg Take 1 [facility] vers 1,000 mg 9-08 tablet by ity of tablet 00:00: mouth in [place] [address] the Medical morning Branch and 1 tablet in the evening. Ranolazine 2022-0 Yes 1000mg Take 1 [facility] vers 1,000 mg 9-08 tablet by ity of tablet 00:00: mouth in [place] [address] the Medical morning [place] and 1 tablet in the evening. Ranolazine 2022-0 Yes 1000mg Take 1 [facility] vers 1,000 mg 9-08 tablet by ity of tablet 00:00: mouth in [place] [address] the Medical morning [place] and 1 tablet in the evening. Ranolazine 2022-0 Yes 1000mg Take 1 [facility] vers 1,000 mg 9-08 tablet by ity of tablet 00:00: mouth in [place] [address] the Medical morning Branch and 1 tablet in the evening. Ranolazine 2022-0 Yes 1000mg Take 1 [facility] vers 1,000 mg 9-08 tablet by ity of tablet 00:00: mouth in [place] [address] the Medical morning Branch and 1 tablet in the evening. Ranolazine 2022-0 Yes 1000mg Take 1 Uni vers 1,000 mg 9-08 tablet by ity of tablet 00:00: mouth in [place] [address] the [facility] morning [place] and 1 tablet in the evening. Ranolazine 2022-0 Yes 1000mg Take 1 [facility] vers 1,000 mg 9-08 tablet by ity of tablet 00:00: mouth in [address] Medical morning Branch and 1 tablet in the evening. Ranolazine 2022-0 Yes 1000mg Take 1 [facility] vers 1,000 mg 9-08 tablet by ity of tablet 00:00: mouth in [place] [address] the Medical morning Branch and 1 tablet in the evening. Ranolazine 2022-0 Yes 1000mg Take 1 Uni vers 1,000 mg 9-08 tablet by ity of tablet 00:00: mouth in [place] [address] the Medical morning Branch and 1 tablet in the evening. Ranolazine 2022-0 Yes 1000mg Take 1 Uni vers 1,000 mg 9-08 tablet by ity of tablet 00:00: mouth in [place] [address] the Medical morning Branch and 1 tablet in the evening. Ranolazine 2022-0 Yes 1000mg Take 1 [facility] vers 1,000 mg 9-08 tablet by ity of tablet 00:00: mouth in [place] [address] the Medical morning Branch and 1 tablet in the evening. Ranolazine 2022-0 Yes 1000mg Take 1 [facility] vers 1,000 mg 9-08 tablet by ity of tablet 00:00: mouth in [place] [address] the Medical morning Branch and 1 tablet in the evening. Ranolazine 2022-0 Yes 1000mg Take 1 [facility] vers 1,000 mg 9-08 tablet by ity of tablet 00:00: mouth in [place] [address] the [facility] morning [place] and 1 tablet in the evening. Ranolazine 2022-0 Yes 1000mg Take 1 [facility] vers 1,000 mg 9-08 tablet by ity of tablet 00:00: mouth in [place] [address] the [facility] morning [place] and 1 tablet in the evening. Ranolazine 2022-0 Yes 1000mg Take 1 [facility] vers 1,000 mg 9-08 tablet by ity of tablet 00:00: mouth in [place] [address] the Medical morning Branch and 1 tablet in the evening. Ranolazine 2022-0 Yes 1000mg Take 1 Uni vers 1,000 mg 9-08 tablet by ity of tablet 00:00: mouth in [place] [address] the [facility] morning Branch and 1 tablet in the evening. Ranolazine 2022-0 Yes 1000mg Take 1 Uni vers 1,000 mg 9-08 tablet by ity of tablet 00:00: mouth in [place] [address] the [facility] morning Branch and 1 tablet in the evening. Ranolazine 2022-0 Yes 1000mg Take 1 Uni vers 1,000 mg 9-08 tablet by ity of tablet 00:00: mouth in [place] [address] the Medical morning Branch and 1 tablet in the evening. Ranolazine 2022-0 Yes 1000mg Take 1 Uni vers 1,000 mg 9-08 tablet by ity of tablet 00:00: mouth in [place] [address] the Medical morning Branch and 1 tablet in the evening. Ranolazine 2022-0 Yes 1000mg Take 1 Uni vers 1,000 mg 9-08 tablet by ity of tablet 00:00: mouth in [place] 00 the Medical morning Branch and 1 tablet in the evening. Ranolazine 2022-0 Yes 1000mg Take 1 Uni vers 1,000 mg 9-08 tablet by ity of tablet 00:00: mouth in [place] [address] the Medical morning Branch and 1 tablet in the evening. Ranolazine 2022-0 Yes 1000mg Take 1 Uni vers 1,000 mg 9-08 tablet by ity of tablet 00:00: mouth in [place] [address] the Medical morning Branch and 1 tablet in the evening. Ranolazine 2022-0 Yes 1000mg Take 1 Uni vers 1,000 mg 9-08 tablet by ity of tablet 00:00: mouth in [place] [address] the Medical morning Branch and 1 tablet in the evening. Ranolazine 2022-0 Yes 1000mg Take 1 Uni vers 1,000 mg 9-08 tablet by ity of tablet 00:00: mouth in [place] [address] the Medical morning Branch and 1 tablet in the evening. Ranolazine 2022-0 Yes 1000mg Take 1 Uni vers 1,000 mg 9-08 tablet by ity of tablet 00:00: mouth in [place] [address] the Medical morning Branch and 1 tablet in the evening. Ranolazine 2022-0 Yes 1000mg Take 1 Uni vers 1,000 mg 9-08 tablet by ity of tablet 00:00: mouth in [place] [address] the Medical morning Branch and 1 tablet in the evening. Ranolazine 2022-0 Yes 1000mg Take 1 Uni vers 1,000 mg 9-08 tablet by ity of tablet 00:00: mouth in [place] [address] the Medical morning Branch and 1 tablet in the evening. Ranolazine 2022-0 Yes 1000mg Take 1 Uni vers 1,000 mg 9-08 tablet by ity of tablet 00:00: mouth in [place] [address] the Medical morning Branch and 1 tablet in the evening. Ranolazine 2022-0 Yes 1000mg Take 1 Uni vers 1,000 mg 9-08 tablet by ity of tablet 00:00: mouth in [place] [address] the Medical morning Branch and 1 tablet in the evening. Ranolazine 2022-0 Yes 1000mg Take 1 Uni vers 1,000 mg 9-08 tablet by ity of tablet 00:00: mouth in [place] [address] the Medical morning Branch and 1 tablet in the evening. Ranolazine 2022-0 Yes 1000mg Take 1 Uni vers 1,000 mg 9-08 tablet by ity of tablet 00:00: mouth in [place] [address] the Medical morning Branch and 1 tablet in the evening. Ranolazine 2022-0 Yes 1000mg Take 1 Uni vers 1,000 mg 9-08 tablet by ity of tablet 00:00: mouth in [place] [address] the Medical morning Branch and 1 tablet in the evening. Ranolazine 2022-0 Yes 1000mg Take 1 [facility] vers 1,000 mg 9-08 tablet by ity of tablet 00:00: mouth in [place] [address] the Medical morning Branch and 1 tablet in the evening. Ranolazine 2022-0 Yes 1000mg Take 1 [facility] vers 1,000 mg 9-08 tablet by ity of tablet 00:00: mouth in [place] [address] the Medical morning Branch and 1 tablet in the evening. Ranolazine 2022-0 Yes 1000mg Take 1 [facility] vers 1,000 mg 9-08 tablet by ity of tablet 00:00: mouth in [place] [address] the Medical morning Branch and 1 tablet in the evening. Ranolazine 2022-0 Yes 1000mg Take 1 [facility] vers 1,000 mg 9-08 tablet by ity of tablet 00:00: mouth in [place] [address] the Medical morning Branch and 1 tablet in the evening. Ranolazine 2022-0 Yes 1000mg Take 1 Uni vers 1,000 mg 9-08 tablet by ity of tablet 00:00: mouth in [place] [address] the Medical morning Branch and 1 tablet in the evening. Ranolazine 2022-0 Yes 1000mg Take 1 Uni vers 1,000 mg 9-08 tablet by ity of tablet 00:00: mouth in [place] [address] the Medical morning Branch and 1 tablet in the evening. Ranolazine 2022-0 Yes 1000mg Take 1 Uni vers 1,000 mg 9-08 tablet by ity of tablet 00:00: mouth in [place] [address] the Medical morning Branch and 1 tablet in the evening. Ranolazine 2022-0 Yes 1000mg Take 1 Uni vers 1,000 mg 9-08 tablet by ity of tablet 00:00: mouth in [place] [address] [address] [facility] and 1 tablet in the evening. Ranolazine 2022-0 Yes 1000mg Take 1 Uni vers 1,000 mg 9-08 tablet by ity of tablet 00:00: mouth in [place] [address] the [facility] morning [place] and 1 tablet in the evening. Ranolazine 2022-0 Yes 1000mg Take 1 Uni vers 1,000 mg 9-08 tablet by ity of tablet 00:00: mouth in [place] [address] the [facility] morning [place] and 1 tablet in the evening. Ranolazine 2022-0 Yes 1000mg Take 1 Uni vers 1,000 mg 9-08 tablet by ity of tablet 00:00: mouth in [place] [address] the [facility] and 1 tablet in the evening. Ranolazine 2022-0 Yes 1000mg Take 1 Uni vers 1,000 mg 9-08 tablet by ity of tablet 00:00: mouth in [place] [address] [address] [facility] and 1 tablet in the evening. Ranolazine 2022-0 Yes 1000mg Take 1 Uni vers 1,000 mg 9-08 tablet by ity of tablet 00:00: mouth in [place] [address] [address] [facility] and 1 tablet in the evening. Ranolazine 2022-0 Yes 1000mg Take 1 [facility] vers 1,000 mg 9-08 tablet by ity of tablet 00:00: mouth in [place] [address] [address] [facility] and 1 tablet in the evening. Ranolazine 2022-0 Yes 1000mg Take 1 [facility] vers 1,000 mg 9-08 tablet by ity of tablet 00:00: mouth in [place] [address] [address] [facility] and 1 tablet in the evening. Ranolazine 2022-0 Yes 1000mg Take 1 Uni vers 1,000 mg 9-08 tablet by ity of tablet 00:00: mouth in [place] [address] [address] [facility] and 1 tablet in the evening. buPROPion 2022-0 Yes [id number] 150mg Take 1 U nivers XL 150 mg 9-06 tablet by ity o f 24 hr 00:00: mouth in [place] tablet 00 the Medical morning. Branch buPROPion 2022-0 Yes [id number] 150mg Take 1 U nivers XL 150 mg 9-06 tablet by ity o f 24 hr 00:00: mouth in [place] tablet 00 the Medical morning. Branch buPROPion 2-0 Yes [id number] 150mg Take 1 U nivers XL 150 mg 9-06 tablet by ity o f 24 hr 00:00: mouth in [place] tablet 00 the Medical morning. Branch buPROPion 2022-0 Yes [id number] 150mg Take 1 U nivers XL 150 mg 9-06 tablet by ity o f 24 hr 00:00: mouth in [place] tablet 00 the Medical morning. Branch buPROPion 2022-0 Yes [id number] 150mg Take 1 U nivers XL 150 mg 9-06 tablet by ity o f 24 hr 00:00: mouth in [place] tablet 00 the Medical morning. Branch buPROPion 2-0 Yes [id number] 150mg Take 1 U nivers XL 150 mg 9-06 tablet by ity o f 24 hr 00:00: mouth in [place] tablet 00 the Medical morning. Branch buPROPion 2-0 Yes [id number] 150mg Take 1 U nivers XL 150 mg 9-06 tablet by ity o f 24 hr 00:00: mouth in [place] tablet 00 the Medical morning. Branch buPROPion 2-0 Yes [id number] 150mg Take 1 U nivers XL 150 mg 9-06 tablet by ity o f 24 hr 00:00: mouth in [place] tablet 00 the Medical morning. Branch buPROPion 2-0 Yes [id number] 150mg Take 1 U nivers XL 150 mg 9-06 tablet by ity o f 24 hr 00:00: mouth in [place] tablet 00 the Medical morning. Branch buPROPion 2-0 Yes [id number] 150mg Take 1 U nivers XL 150 mg 9-06 tablet by ity o f 24 hr 00:00: mouth in [place] tablet 00 the Medical morning. Branch buPROPion 2-0 Yes [id number] 150mg Take 1 U nivers XL 150 mg 9-06 tablet by ity o f 24 hr 00:00: mouth in [place] tablet 00 the Medical morning. Branch buPROPion 2022-0 Yes [id number] 150mg Take 1 U nivers XL 150 mg 9-06 tablet by ity o f 24 hr 00:00: mouth in [place] tablet 00 the Medical morning. Branch buPROPion 2022-0 2022- No [id number] 150mg Take 1 [facility] XL 150 mg 9-06 10-20 tablet by ity of 24 hr 00:00: 00:00 mouth in [place] tablet 00 :00 the Medical morning. Branch buPROPion 2022-0 2- No [id number] 150mg Take 1 [facility] XL 150 mg 9-06 10-20 tablet by ity of 24 hr 00:00: 00:00 mouth in [place] tablet 00 :00 the Medical morning. Branch buPROPion 2021-0 2- No [id number] 150mg Take 1 [facility] XL 150 mg 9-06 10-20 tablet by ity of 24 hr 00:00: 00:00 mouth in [place] tablet 00 :00 the Medical morning. Branch buPROPion 2021-0 2- No [id number] 150mg Take 1 [facility] XL 150 mg 9-06 10-20 tablet by ity of 24 hr 00:00: 00:00 mouth in [place] tablet 00 :00 the Medical morning. Branch buPROPion 2021-0 2- No [id number] 150mg Take 1 [facility] XL 150 mg 9-06 10-20 tablet by ity of 24 hr 00:00: 00:00 mouth in [place] tablet 00 :00 the Medical morning. Branch isosorbide 2022-0 Yes [id number] 30mg Take 0.5 [facility] mononitrate 8-30 tablets by it y of 60 mg 24 hr 00:00: mouth in [place] tablet 00 the Medical morning. Branch empaglifloz 2-0 Yes [id number] 10mg Take 1 [facility] in 8-30 tablet by ity of (JARDIANCE) 00:00: mouth [place] 10 mg 00 daily Medical before Branch breakfast. isosorbide 2022-0 Yes [id number] 30mg Take 0.5 [facility] mononitrate 8-30 tablets by it y of 60 mg 24 hr 00:00: mouth in [place] tablet 00 the Medical morning. Branch empaglifloz 2022-0 Yes [id number] 10mg Take 1 [facility] in 8-30 tablet by ity of (JARDIANCE) 00:00: mouth [place] 10 mg 00 daily Medical before [place] breakfast. isosorbide 2022-0 Yes [id number] 30mg Take 0.5 [facility] mononitrate 8-30 tablets by it y of 60 mg 24 hr 00:00: mouth in [place] tablet 00 the Medical morning. Branch empaglifloz 2022-0 Yes [id number] 10mg Take 1 [facility] in 8-30 tablet by ity of (JARDIANCE) 00:00: mouth [place] 10 mg 00 daily Medical before Branch breakfast. isosorbide 2022-0 Yes [id number] 30mg Take 0.5 [facility] mononitrate 8-30 tablets by it y of 60 mg 24 hr 00:00: mouth in [place] tablet 00 the Medical morning. Branch empaglifloz 2022-0 Yes [id number] 10mg Take 1 [facility] in 8-30 tablet by ity of (JARDIANCE) 00:00: mouth [place] 10 mg 00 daily Medical before Branch breakfast. isosorbide 2022-0 Yes [id number] 30mg Take 0.5 [facility] mononitrate 8-30 tablets by it y of 60 mg 24 hr 00:00: mouth in [place] tablet 00 the Medical morning. Branch empaglifloz 2022-0 Yes [id number] 10mg Take 1 [facility] in 8-30 tablet by ity of (JARDIANCE) 00:00: mouth [place] 10 mg 00 daily Medical before Branch breakfast. isosorbide 2022-0 Yes [id number] 30mg Take 0.5 [facility] mononitrate 8-30 tablets by it y of 60 mg 24 hr 00:00: mouth in [place] tablet 00 the Medical morning. Branch empaglifloz 2022-0 Yes [id number] 10mg Take 1 [facility]-30 tablet by [facility] ([place]) 00:00: mouth [place] 10 mg 00 daily Medical before Branch breakfast. isosorbide 2022-0 Yes [id number] 30mg Take 0.5 [facility] mononitrate 8-30 tablets by it y of 60 mg 24 hr 00:00: mouth in [place] tablet 00 the Medical morning. Branch empaglifloz 2022-0 Yes [id number] 10mg Take 1 [facility] in 8-30 tablet by [facility] of ([place]) 00:00: mouth [place] 10 mg 00 daily Medical before Branch breakfast. isosorbide 2022-0 Yes [id number] 30mg Take 0.5 [facility] mononitrate 8-30 tablets by it y of 60 mg 24 hr 00:00: mouth in [place] tablet 00 the Medical morning. Branch empaglifloz 2022-0 Yes [id number] 10mg Take 1 [facility] in 8-30 tablet by [facility] of ([place]) 00:00: mouth [place] 10 mg 00 daily Medical before Branch breakfast. isosorbide 2022-0 Yes [id number] 30mg Take 0.5 [facility] mononitrate 8-30 tablets by it y of 60 mg 24 hr 00:00: mouth in [place] tablet 00 the Medical morning. Branch empaglifloz 2022-0 Yes [id number] 10mg Take 1 [facility] in 8-30 tablet by [facility] of ([place]) 00:00: mouth [place] 10 mg 00 daily Medical before Branch breakfast. isosorbide 2022-0 Yes [id number] 30mg Take 0.5 [facility] mononitrate 8-30 tablets by it y of 60 mg 24 hr 00:00: mouth in [place] tablet 00 the Medical morning. Branch empaglifloz 2022-0 Yes [id number] 10mg Take 1 [facility] in 8-30 tablet by [facility] of ([place]) 00:00: mouth [place] 10 mg 00 daily Medical before Branch breakfast. isosorbide 2022-0 Yes [id number] 30mg Take 0.5 [facility] mononitrate 8-30 tablets by it y of 60 mg 24 hr 00:00: mouth in [place] tablet 00 the Medical morning. Branch empaglifloz 2022-0 Yes [id number] 10mg Take 1 [facility] in 8-30 tablet by [facility] of ([place]) 00:00: mouth [place] 10 mg 00 daily Medical before Branch breakfast. isosorbide 2022-0 Yes [id number] 30mg Take 0.5 [facility] mononitrate 8-30 tablets by it y of 60 mg 24 hr 00:00: mouth in [place] tablet 00 the Medical morning. Branch empaglifloz 2022-0 Yes [id number] 10mg Take 1 [facility] in 8-30 tablet by [facility] of ([place]) 00:00: mouth [place] 10 mg 00 daily Medical before Branch breakfast. isosorbide 2022-0 Yes [id number] 30mg Take 0.5 [facility] mononitrate 8-30 tablets by it y of 60 mg 24 hr 00:00: mouth in [place] tablet 00 the Medical morning. Branch empaglifloz 2022-0 Yes [id number] 10mg Take 1 [facility] in 8-30 tablet by [facility] of ([place]) 00:00: mouth [place] 10 mg 00 daily Medical before Branch breakfast. isosorbide 2022-0 Yes [id number] 30mg Take 0.5 [facility] mononitrate 8-30 tablets by it y of 60 mg 24 hr 00:00: mouth in [place] tablet 00 the Medical morning. Branch empaglifloz 2022-0 Yes [id number] 10mg Take 1 [facility] in 8-30 tablet by [facility] of ([place]) 00:00: mouth [place] 10 mg 00 daily Medical before Branch breakfast. isosorbide 2022-0 Yes [id number] 30mg Take 0.5 [facility] mononitrate 8-30 tablets by it y of 60 mg 24 hr 00:00: mouth in [place] tablet 00 the Medical morning. Branch empaglifloz 2022-0 Yes [id number] 10mg Take 1 [facility] in 8-30 tablet by [facility] of ([place]) 00:00: mouth [place] 10 mg 00 daily Medical before Branch breakfast. isosorbide 2022-0 Yes [id number] 30mg Take 0.5 [facility] mononitrate 8-30 tablets by it y of 60 mg 24 hr 00:00: mouth in [place] tablet 00 the Medical morning. Branch empaglifloz 2022-0 Yes [id number] 10mg Take 1 [facility] in 8-30 tablet by [facility] of ([place]) 00:00: mouth [place] 10 mg 00 daily Medical before Branch breakfast. isosorbide 2022-0 Yes [id number] 30mg Take 0.5 [facility] mononitrate 8-30 tablets by it y of 60 mg 24 hr 00:00: mouth in [place] tablet 00 the Medical morning. Branch empaglifloz 2022-0 Yes [id number] 10mg Take 1 [facility] in 8-30 tablet by [facility] of ([place]) 00:00: mouth [place] 10 mg 00 daily Medical before Branch breakfast. isosorbide 2022-0 Yes [id number] 30mg Take 0.5 [facility] mononitrate 8-30 tablets by it y of 60 mg 24 hr 00:00: mouth in [place] tablet 00 the Medical morning. Branch empaglifloz 2022-0 Yes [id number] 10mg Take 1 [facility] in 8-30 tablet by [facility] of ([place]) 00:00: mouth [place] 10 mg 00 daily Medical before Branch breakfast. isosorbide 2022-0 Yes [id number] 30mg Take 0.5 [facility] mononitrate 8-30 tablets by it y of 60 mg 24 hr 00:00: mouth in [place] tablet 00 the Medical morning. Branch empaglifloz 2022-0 Yes [id number] 10mg Take 1 [facility] in 8-30 tablet by [facility] of ([place]) 00:00: mouth [place] 10 mg 00 daily Medical before Branch breakfast. isosorbide 2022-0 Yes [id number] 30mg Take 0.5 [facility] mononitrate 8-30 tablets by it y of 60 mg 24 hr 00:00: mouth in [place] tablet 00 the Medical morning. Branch empaglifloz 2022-0 Yes [id number] 10mg Take 1 [facility] in 8-30 tablet by [facility] of ([place]) 00:00: mouth [place] 10 mg 00 daily Medical before Branch breakfast. isosorbide 2022-0 Yes [id number] 30mg Take 0.5 [facility] mononitrate 8-30 tablets by it y of 60 mg 24 hr 00:00: mouth in [place] tablet 00 the Medical morning. Branch empaglifloz 2022-0 Yes [id number] 10mg Take 1 [facility] in 8-30 tablet by [facility] of ([place]) 00:00: mouth [place] 10 mg 00 daily Medical before Branch breakfast. isosorbide 2022-0 Yes [id number] 30mg Take 0.5 [facility] mononitrate 8-30 tablets by it y of 60 mg 24 hr 00:00: mouth in [place] tablet 00 the Medical morning. Branch empaglifloz 2022-0 Yes [id number] 10mg Take 1 [facility] in 8-30 tablet by [facility] of ([place]) 00:00: mouth [place] 10 mg 00 daily Medical before Branch breakfast. isosorbide 2022-0 Yes [id number] 30mg Take 0.5 [facility] mononitrate 8-30 tablets by it y of 60 mg 24 hr 00:00: mouth in [place] tablet 00 the Medical morning. Branch empaglifloz 2022-0 Yes [id number] 10mg Take 1 [facility] in 8-30 tablet by [facility] of ([place]) 00:00: mouth [place] 10 mg 00 daily Medical before Branch breakfast. isosorbide 2022-0 Yes [id number] 30mg Take 0.5 [facility] mononitrate 8-30 tablets by it y of 60 mg 24 hr 00:00: mouth in [place] tablet 00 the Medical morning. Branch empaglifloz 2022-0 Yes [id number] 10mg Take 1 [facility] in 8-30 tablet by [facility] of ([place]) 00:00: mouth [place] 10 mg 00 daily Medical before Branch breakfast. isosorbide 2022-0 Yes [id number] 30mg Take 0.5 [facility] mononitrate 8-30 tablets by it y of 60 mg 24 hr 00:00: mouth in [place] tablet 00 the Medical morning. Branch empaglifloz 2022-0 Yes [id number] 10mg Take 1 [facility] in 8-30 tablet by [facility] of ([place]) 00:00: mouth [place] 10 mg 00 daily Medical before Branch breakfast. isosorbide 2022-0 Yes [id number] 30mg Take 0.5 [facility] mononitrate 8-30 tablets by it y of 60 mg 24 hr 00:00: mouth in [place] tablet 00 the Medical morning. Branch empaglifloz 2022-0 Yes [id number] 10mg Take 1 [facility] in 8-30 tablet by [facility] of ([place]) 00:00: mouth [place] 10 mg 00 daily Medical before Branch breakfast. isosorbide 2022-0 Yes [id number] 30mg Take 0.5 [facility] mononitrate 8-30 tablets by it y of 60 mg 24 hr 00:00: mouth in [place] tablet 00 the Medical morning. Branch empaglifloz 2022-0 Yes [id number] 10mg Take 1 [facility] in 8-30 tablet by [facility] of ([place]) 00:00: mouth [place] 10 mg 00 daily Medical before Branch breakfast. isosorbide 2022-0 Yes [id number] 30mg Take 0.5 [facility] mononitrate 8-30 tablets by it y of 60 mg 24 hr 00:00: mouth in [place] tablet 00 the Medical morning. Branch empaglifloz 2022-0 Yes [id number] 10mg Take 1 [facility] in 8-30 tablet by [facility] of ([place]) 00:00: mouth [place] 10 mg 00 daily Medical before Branch breakfast. isosorbide 2022-0 Yes [id number] 30mg Take 0.5 [facility] mononitrate 8-30 tablets by it y of 60 mg 24 hr 00:00: mouth in [place] tablet 00 the Medical morning. Branch empaglifloz 2022-0 Yes [id number] 10mg Take 1 [facility] in 8-30 tablet by [facility] of ([place]) 00:00: mouth [place] 10 mg 00 daily Medical before Branch breakfast. isosorbide 2022-0 Yes [id number] 30mg Take 0.5 [facility] mononitrate 8-30 tablets by it y of 60 mg 24 hr 00:00: mouth in [place] tablet 00 the Medical morning. Branch empaglifloz 2022-0 Yes [id number] 10mg Take 1 [facility] in 8-30 tablet by [facility] of ([place]) 00:00: mouth [place] 10 mg 00 daily Medical before Branch breakfast. isosorbide 2022-0 Yes [id number] 30mg Take 0.5 [facility] mononitrate 8-30 tablets by it y of 60 mg 24 hr 00:00: mouth in [place] tablet 00 the Medical morning. Branch empaglifloz 2022-0 Yes [id number] 10mg Take 1 [facility] in 8-30 tablet by [facility] of ([place]) 00:00: mouth [place] 10 mg 00 daily Medical before Branch breakfast. isosorbide 2022-0 Yes [id number] 30mg Take 0.5 [facility] mononitrate 8-30 tablets by it y of 60 mg 24 hr 00:00: mouth in [place] tablet 00 the Medical morning. Branch empaglifloz 2022-0 Yes [id number] 10mg Take 1 [facility] in 8-30 tablet by [facility] of ([place]) 00:00: mouth [place] 10 mg 00 daily Medical before Branch breakfast. isosorbide 2022-0 Yes [id number] 30mg Take 0.5 [facility] mononitrate 8-30 tablets by it y of 60 mg 24 hr 00:00: mouth in [place] tablet 00 the Medical morning. Branch empaglifloz 2022-0 Yes [id number] 10mg Take 1 [facility] in 8-30 tablet by [facility] of ([place]) 00:00: mouth [place] 10 mg 00 daily Medical before Branch breakfast. isosorbide 2022-0 Yes [id number] 30mg Take 0.5 [facility] mononitrate 8-30 tablets by it y of 60 mg 24 hr 00:00: mouth in [place] tablet 00 the Medical morning. Branch empaglifloz 2022-0 Yes [id number] 10mg Take 1 [facility] in 8-30 tablet by [facility] of ([place]) 00:00: mouth [place] 10 mg 00 daily Medical before Branch breakfast. empaglifloz 2022-0 Yes [id number] 10mg Take 1 [facility] in 8-30 tablet by [facility] of ([place]) 00:00: mouth [place] 10 mg 00 daily Medical before Branch breakfast. empaglifloz 2022-0 Yes [id number] 10mg Take 1 [facility] in 8-30 tablet by [facility] of ([place]) 00:00: mouth [place] 10 mg 00 daily Medical before Branch breakfast. empaglifloz 2022-0 Yes [id number] 10mg Take 1 [facility] in 8-30 tablet by [facility] of ([place]) 00:00: mouth [place] 10 mg 00 daily Medical before Branch breakfast. empaglifloz 2022-0 Yes [id number] 10mg Take 1 [facility] in 8-30 tablet by [facility] of ([place]) 00:00: mouth [place] 10 mg 00 daily Medical before Branch breakfast. empaglifloz 2022-0 Yes [id number] 10mg Take 1 [facility] in 8-30 tablet by [facility] of ([place]) 00:00: mouth [place] 10 mg 00 daily Medical before Branch breakfast. empaglifloz 2022-0 Yes [id number] 10mg Take 1 [facility] in 8-30 tablet by [facility] of ([place]) 00:00: mouth [place] 10 mg 00 daily Medical before Branch breakfast. empaglifloz 2022-0 Yes [id number] 10mg Take 1 [facility] in 8-30 tablet by [facility] of ([place]) 00:00: mouth [place] 10 mg 00 daily Medical before Branch breakfast. empaglifloz 2022-0 Yes [id number] 10mg Take 1 [facility] in 8-30 tablet by [facility] of ([place]) 00:00: mouth [place] 10 mg 00 daily Medical before Branch breakfast. empaglifloz 2022-0 Yes [id number] 10mg Take 1 [facility] in 8-30 tablet by [facility] of ([place]) 00:00: mouth [place] 10 mg 00 daily Medical before Branch breakfast. empaglifloz 2022-0 Yes [id number] 10mg Take 1 [facility] in 8-30 tablet by [facility] of ([place]) 00:00: mouth [place] 10 mg 00 daily Medical before Branch breakfast. empaglifloz 2022-0 Yes [id number] 10mg Take 1 [facility] in 8-30 tablet by [facility] of ([place]) 00:00: mouth [place] 10 mg 00 daily Medical before Branch breakfast. empaglifloz 2022-0 Yes [id number] 10mg Take 1 [facility] in 8-30 tablet by [facility] of ([place]) 00:00: mouth [place] 10 mg 00 daily Medical before Branch breakfast. empaglifloz 2022-0 Yes [id number] 10mg Take 1 [facility] in 8-30 tablet by [facility] of ([place]) 00:00: mouth [place] 10 mg 00 daily Medical before Branch breakfast. empaglifloz 2022-0 Yes [id number] 10mg Take 1 [facility] in 8-30 tablet by [facility] of ([place]) 00:00: mouth [place] 10 mg 00 daily Medical before Branch breakfast. empaglifloz 2022-0 Yes [id number] 10mg Take 1 [facility] in 8-30 tablet by [facility] of ([place]) 00:00: mouth [place] 10 mg 00 daily Medical before Branch breakfast. empaglifloz 2022-0 2023- No [id number] 10mg Take 1 [facility] in 8- tablet by [facility] of ([place]) 00:00: 00:00 mouth [place] 10 mg 00 :00 daily Medical before Branch breakfast. empaglifloz 2022-0 2023- No [id number] 10mg Take 1 [facility] in 807-30 tablet by [facility] of ([place]) 00:00: 00:00 mouth [place] 10 mg 00 :00 daily Medical before Branch breakfast. empaglifloz 2022-0 2023- No [id number] 10mg Take 1 [facility] in 02-19- tablet by [facility] of ([place]) 00:00: 00:00 mouth [place] 10 mg 00 :00 daily Medical before Branch breakfast. empaglifloz 2022-0 2023- No [id number] 10mg Take 1 [facility] in 830 - tablet by [facility] of ([place]) 00:00: 00:00 mouth [place] 10 mg 00 :00 daily Medical before Branch breakfast. empaglifloz 2022-0 2023- No [id number] 10mg Take 1 [facility] in 830 - tablet by [facility] of ([place]) 00:00: 00:00 mouth [place] 10 mg 00 :00 daily Medical before Branch breakfast. empaglifloz 2021-2022- No [id number] 10mg Take 1 [facility] in 02-19 tablet by [facility] of ([place]) 00:00: 00:00 mouth [place] 10 mg 00 :00 daily Medical before [place] breakfast. empaglifloz 2021-2022- No [id number] 10mg Take 1 [facility] in 02-19 tablet by [facility] of ([place]) 00:00: 00:00 mouth [place] 10 mg 00 :00 daily Medical before [place] breakfast. empaglifloz 2021-2022- No [id number] 10mg Take 1 [facility] in 02-19 tablet by [facility] of ([place]) 00:00: 00:00 mouth [place] 10 mg 00 :00 daily Medical before [place] breakfast. empaglifloz 2022- No [id number] 10mg Take 1 [facility] in 02-19 tablet by [facility] of ([place]) 00:00: 00:00 mouth [place] 10 mg 00 :00 daily Medical before [place] breakfast. isosorbide 2021-2021- No [id number] 30mg Take 0.5 [facility] mononitrate 8-30 12-29 tablets by i ty of 60 mg 24 hr 00:00: 00:00 mouth in [place] tablet 00 :00 the Medical morning. Branch isosorbide 2021-2021- No [id number] 30mg Take 0.5 [facility] mononitrate 8-30 12-29 tablets by i ty of 60 mg 24 hr 00:00: 00:00 mouth in [place] tablet 00 :00 the Medical morning. Branch isosorbide 2021-0 2021- No [id number] 30mg Take 0.5 [facility] mononitrate 8-30 12-29 tablets by i ty of 60 mg 24 hr 00:00: 00:00 mouth in [place] tablet 00 :00 the Medical morning. Branch isosorbide 2021-0 2- No [id number] 30mg Take 0.5 [facility] mononitrate 8-30 12-29 tablets by i ty of 60 mg 24 hr 00:00: 00:00 mouth in [place] tablet 00 :00 the Medical morning. Branch isosorbide 2-0 2- No [id number] 30mg Take 0.5 [facility] mononitrate 8-30 12-29 tablets by i ty of 60 mg 24 hr 00:00: 00:00 mouth in [place] tablet 00 :00 the Medical morning. Branch clonazePAM 2021- No [id number] Take 1 [facility] 1 mg tablet 02-07 pill PO in i ty of 00:00: 00:00 the AM, 1 [place] 00 :00 PO in the Medical afternoon, Branch 1 pill PO in the evening. May take additional 1/2 pill as needed for acute anxiety. clonazePAM 2021-2021- No [id number] Take 1 [facility] 1 mg tablet 02-07 pill PO in i ty of 00:00: 00:00 the AM, 1 [place] 00 :00 PO in the Medical afternoon, Branch 1 pill PO in the evening. May take additional 1/2 pill as needed for acute anxiety. clonazePAM 2021-2021- No [id number] Take 1 [facility] 1 mg tablet 02-07 pill PO in i ty of 00:00: 00:00 the AM, 1 [place] 00 :00 PO in the Medical afternoon, Branch 1 pill PO in the evening. May take additional 1/2 pill as needed for acute anxiety. BUMETANIDE 2021-0 Yes [id number] 3mg TAKE 1.5 [facility] 2 mg tablet 8-12 TABLETS BY it y of 00:00: MOUTH 2 [place] (TWO) Medical TIMES Branch DAILY. BUMETANIDE 2021-0 Yes [id number] 3mg TAKE 1.5 [facility] 2 mg tablet 8-12 TABLETS BY it y of 00:00: MOUTH 2 [place] (TWO) Medical TIMES Branch DAILY. BUMETANIDE 2021-0 Yes [id number] 3mg TAKE 1.5 [facility] 2 mg tablet 8-12 TABLETS BY it y of 00:00: MOUTH 2 [place] (TWO) Medical TIMES Branch DAILY. BUMETANIDE 2021-0 Yes [id number] 3mg TAKE 1.5 [facility] 2 mg tablet 8-12 TABLETS BY it y of 00:00: MOUTH 2 [place] (TWO) Medical TIMES Branch DAILY. BUMETANIDE 2021-0 Yes [id number] 3mg TAKE 1.5 [facility] 2 mg tablet 8-12 TABLETS BY it y of 00:00: MOUTH 2 (TWO) Medical TIMES Branch DAILY. BUMETANIDE 2021-0 Yes [id number] 3mg TAKE 1.5 [facility] 2 mg tablet 8-12 TABLETS BY it y of 00:00: MOUTH [place] (TWO) Medical TIMES Branch DAILY. BUMETANIDE 2021-0 Yes [id number] 3mg TAKE 1.5 [facility] 2 mg tablet 8-12 TABLETS BY it y of 00:00: MOUTH 2 [place] (TWO) Medical TIMES Branch DAILY. BUMETANIDE 2021-0 Yes [id number] 3mg TAKE 1.5 [facility] 2 mg tablet 8-12 TABLETS BY it y of 00:00: MOUTH [place] (TWO) Medical TIMES Branch DAILY. BUMETANIDE 2021-0 Yes [id number] 3mg TAKE 1.5 [facility] 2 mg tablet 8-12 TABLETS BY it y of 00:00: MOUTH [place] (TWO) Medical TIMES Branch DAILY. BUMETANIDE 2021-0 Yes [id number] 3mg TAKE 1.5 [facility] 2 mg tablet 8-12 TABLETS BY it y of 00:00: MOUTH [place] (TWO) Medical TIMES Branch DAILY. BUMETANIDE 2021-0 Yes [id number] 3mg TAKE 1.5 [facility] 2 mg tablet 8-12 TABLETS BY it y of 00:00: MOUTH [place] (TWO) Medical TIMES Branch DAILY. BUMETANIDE 2021-0 Yes [id number] 3mg TAKE 1.5 [facility] 2 mg tablet 8-12 TABLETS BY it y of 00:00: MOUTH [address] [place] [address] (TWO) Medical TIMES Branch DAILY. BUMETANIDE 2021-0 Yes [id number] 3mg TAKE 1.5 [facility] 2 mg tablet 8-12 TABLETS BY it y of 00:00: MOUTH [place] (TWO) Medical TIMES Branch DAILY. BUMETANIDE 2021-0 Yes [id number] 3mg TAKE 1.5 [facility] 2 mg tablet 8-12 TABLETS BY it y of 00:00: MOUTH [address] [place] [address] (TWO) Medical TIMES Branch DAILY. BUMETANIDE 2021-0 Yes [id number] 3mg TAKE 1.5 [facility] 2 mg tablet 8-12 TABLETS BY it y of 00:00: MOUTH 2 [place] (TWO) Medical TIMES Branch DAILY. BUMETANIDE 2-0 2- No [id number] 3mg TAKE 1.5 [facility] 2 mg tablet 8-12 10-21 TABLETS BY i ty of 00:00: 00:00 MOUTH 2 [place] 00 :00 (TWO) Medical TIMES Branch DAILY. BUMETANIDE 2021- No [id number] 3mg TAKE 1.5 [facility] 2 mg tablet 8-12 10-21 TABLETS BY i ty of 00:00: 00:00 MOUTH 2 [place] 00 :00 (TWO) Medical TIMES Branch DAILY. BUMETANIDE 2021- No [id number] 3mg TAKE 1.5 [facility] 2 mg tablet 8-12 10-21 TABLETS BY i ty of 00:00: 00:00 MOUTH 2 [place] 00 :00 (TWO) Medical TIMES Branch DAILY. cyanocobala Yes [id number] 1000ug 1 mL by [facility] min 7-19 [facility] ([facility] 00:00: lar [place] B-12) 1,000 00 every 2 Medic al mcg/mL (two) Branch injection weeks. cyanocobala Yes [id number] 1000ug 1 mL by [facility] min 7-19 [facility] ([facility] 00:00: lar route [place] B-12) 1,000 00 every 2 Medic al mcg/mL (two) Branch injection weeks. cyanocobala Yes [id number] 1000ug 1 mL by [facility] min 7-19 [facility] ([facility]IN 00:00: lar route [place] B-12) 1,000 00 every 2 Medic al mcg/mL (two) Branch injection weeks. cyanocobala Yes [id number] 1000ug 1 mL by [facility] min 7-19 [facility] ([facility]IN 00:00: lar route [place] B-12) 1,000 00 every 2 Medic al mcg/mL (two) Branch injection weeks. cyanocobala Yes [id number] 1000ug 1 mL by [facility] min 7-19 [facility] ([facility]IN 00:00: lar route [place] B-12) 1,000 00 every 2 Medic al mcg/mL (two) Branch injection weeks. cyanocobala Yes [id number] 1000ug 1 mL by [facility] min 7-19 [facility] ([facility]IN 00:00: lar route [place] B-12) 1,000 00 every 2 Medic al mcg/mL (two) Branch injection weeks. cyanocobala Yes [id number] 1000ug 1 mL by [facility] min 7-19 [facility] (V[facility]IN 00:00: lar route [place] B-12) 1,000 00 every 2 Medic al mcg/mL (two) Branch injection weeks. cyanocobala Yes [id number] 1000ug 1 mL by [facility] min 7-19 [facility] (VITAMIN 00:00: lar route [place] B-12) 1,000 00 every 2 Medic al mcg/mL (two) Branch injection weeks. cyanocobala Yes [id number] 1000ug 1 mL by [facility] min 7-19 [facility] (VITAMIN 00:00: lar route [place] B-12) 1,000 00 every 2 Medic al mcg/mL (two) Branch injection weeks. cyanocobala Yes [id number] 1000ug 1 mL by [facility] min 7-19 [facility] (VITAMIN 00:00: lar route [place] B-12) 1,000 00 every 2 Medic al mcg/mL (two) Branch injection weeks. cyanocobala Yes [id number] 1000ug 1 mL by [facility] min 7-19 [facility] (VITAMIN 00:00: lar route [place] B-12) 1,000 00 every 2 Medic al mcg/mL (two) Branch injection weeks. cyanocobala Yes [id number] 1000ug 1 mL by [facility] min 7-19 [facility] (VITAMIN 00:00: lar route [place] B-12) 1,000 00 every 2 Medic al mcg/mL (two) Branch injection weeks. cyanocobala Yes [id number] 1000ug 1 mL by [facility] min 7-19 [facility] (VITAMIN 00:00: lar route [place] B-12) 1,000 00 every 2 Medic al mcg/mL (two) Branch injection weeks. cyanocobala Yes [id number] 1000ug 1 mL by [facility] min 7-19 [facility] (VITAMIN 00:00: lar route [place] B-12) 1,000 00 every 2 Medic al mcg/mL (two) Branch injection weeks. cyanocobala Yes [id number] 1000ug 1 mL by [facility] min 7-19 [facility] (VITAMIN 00:00: lar route [place] B-12) 1,000 00 every 2 Medic al mcg/mL (two) Branch injection weeks. cyanocobala Yes [id number] 1000ug 1 mL by [facility] min 7-19 [facility] (VITAMIN 00:00: lar route [place] B-12) 1,000 00 every 2 Medic al mcg/mL (two) Branch injection weeks. cyanocobala Yes [id number] 1000ug 1 mL by [facility] min 7-19 [facility] (VITAMIN 00:00: lar route [place] B-12) 1,000 00 every 2 Medic al mcg/mL (two) Branch injection weeks. cyanocobala Yes [id number] 1000ug 1 mL by [facility] min 7-19 [facility] (VITAMIN 00:00: lar route [place] B-12) 1,000 00 every 2 Medic al mcg/mL (two) Branch injection weeks. cyanocobala Yes [id number] 1000ug 1 mL by [facility] min 7-19 [facility] (VITAMIN 00:00: lar route [place] B-12) 1,000 00 every 2 Medic al mcg/mL (two) Branch injection weeks. cyanocobala Yes [id number] 1000ug 1 mL by [facility] min 7-19 [facility] (VITAMIN 00:00: lar route [place] B-12) 1,000 00 every 2 Medic al mcg/mL (two) Branch injection weeks. cyanocobala Yes [id number] 1000ug 1 mL by [facility] min 7-19 [facility] (VITAMIN 00:00: lar route [place] B-12) 1,000 00 every 2 Medic al mcg/mL (two) Branch injection weeks. cyanocobala Yes [id number] 1000ug 1 mL by [facility] min 7-19 [facility] (VITAMIN 00:00: lar route [place] B-12) 1,000 00 every 2 Medic al mcg/mL (two) Branch injection weeks. cyanocobala Yes [id number] 1000ug 1 mL by [facility] min 7-19 [facility] (VITAMIN 00:00: lar route [place] B-12) 1,000 00 every 2 Medic al mcg/mL (two) Branch injection weeks. cyanocobala 0 Yes [id number] 1000ug 1 mL by [facility] min 7-19 [facility] (VITAMIN 00:00: lar route [place] B-12) 1,000 00 every 2 Medic al mcg/mL (two) Branch injection weeks. cyanocobala Yes [id number] 1000ug 1 mL by [facility] min 7-19 [facility] (VITAMIN 00:00: lar route [place] B-12) 1,000 00 every 2 Medic al mcg/mL (two) Branch injection weeks. cyanocobala Yes [id number] 1000ug 1 mL by [facility] min 7-19 [facility] (VITAMIN 00:00: lar route [place] B-12) 1,000 00 every 2 Medic al mcg/mL (two) Branch injection weeks. cyanocobala Yes [id number] 1000ug 1 mL by [facility] min 7-19 [facility] (VITAMIN 00:00: lar route [place] B-12) 1,000 00 every 2 Medic al mcg/mL (two) Branch injection weeks. cyanocobala Yes [id number] 1000ug 1 mL by [facility] min 7-19 [facility] (VITAMIN 00:00: lar route [place] B-12) 1,000 00 every 2 Medic al mcg/mL (two) Branch injection weeks. cyanocobala 0 Yes [id number] 1000ug 1 mL by [facility] min 7-19 [facility] (VITAMIN 00:00: lar route [place] B-12) 1,000 00 every 2 Medic al mcg/mL (two) Branch injection weeks. cyanocobala 0 Yes [id number] 1000ug 1 mL by [facility] min 7-19 [facility] (VITAMIN 00:00: lar route [place] B-12) 1,000 00 every 2 Medic al mcg/mL (two) Branch injection weeks. cyanocobala 0 Yes [id number] 1000ug 1 mL by [facility] min 7-19 [facility] (VITAMIN 00:00: lar route [place] B-12) 1,000 00 every 2 Medic al mcg/mL (two) Branch injection weeks. cyanocobala Yes [id number] 1000ug 1 mL by [facility] min 7-19 [facility] (VITAMIN 00:00: lar route [place] B-12) 1,000 00 every 2 Medic al mcg/mL (two) Branch injection weeks. cyanocobala Yes [id number] 1000ug 1 mL by [facility] min 7-19 [facility] (VITAMIN 00:00: lar route [place] B-12) 1,000 00 every 2 Medic al mcg/mL (two) Branch injection weeks. cyanocobala Yes [id number] 1000ug 1 mL by [facility] min 7-19 [facility] (VITAMIN 00:00: lar route [place] B-12) 1,000 00 every 2 Medic al mcg/mL (two) Branch injection weeks. cyanocobala Yes [id number] 1000ug 1 mL by [facility] min 7-19 [facility] (VITAMIN 00:00: lar route [place] B-12) 1,000 00 every 2 Medic al mcg/mL (two) Branch injection weeks. cyanocobala Yes [id number] 1000ug 1 mL by [facility] min 7-19 [facility] (VITAMIN 00:00: lar route [place] B-12) 1,000 00 every 2 Medic al mcg/mL (two) Branch injection weeks. cyanocobala Yes [id number] 1000ug 1 mL by [facility] min 7-19 [facility] (VITAMIN 00:00: lar route [place] B-12) 1,000 00 every 2 Medic al mcg/mL (two) Branch injection weeks. cyanocobala Yes [id number] 1000ug 1 mL by [facility] min 7-19 [facility] ([place] 00:[place] B[place]12[place] 1,000 00 every 2 Medic al mcg/mL (two) Branch injection weeks. cyanocobala Yes [id number] 1000ug 1 mL by [facility] min 7-19 [facility] (VITAMIN 00:00: [place] B-12[place] 1,000 00 every 2 Medic al mcg/mL (two) Branch injection weeks. cyanocobala Yes [id number] 1000ug 1 mL by [facility] min 7-19 [facility] (VITAMIN 00:00: [place] B-12) 1,000 00 every 2 Medic al mcg/mL (two) Branch injection weeks. cyanocobala Yes [id number] 1000ug 1 mL by [facility] min 7-19 [facility] (VITAMIN 00:00: [place] B-12) 1,000 00 every 2 Medic al mcg/mL (two) Branch injection weeks. cyanocobala Yes [id number] 1000ug 1 mL by [facility] min 7-19 [facility] (VITAMIN 00:00: [place] B-12) 1,000 00 every 2 Medic al mcg/mL (two) Branch injection weeks. cyanocobala Yes [id number] 1000ug 1 mL by [facility] min 7-19 [facility] (VITAMIN 00:00: [place] B-12) 1,000 00 every 2 Medic al mcg/mL (two) Branch injection weeks. cyanocobala Yes [id number] 1000ug 1 mL by [facility] min 7-19 [facility] (VITAMIN 00:00: [place] B-12) 1,000 00 every 2 Medic al mcg/mL (two) Branch injection weeks. cyanocobala Yes [id number] 1000ug 1 mL by [facility] min 7-19 [facility] (VITAMIN 00:00: [place] B-12) 1,000 00 every 2 Medic al mcg/mL (two) Branch injection weeks. cyanocobala Yes [id number] 1000ug 1 mL by [facility] min 7-19 [facility] (VITAMIN 00:00: [place] B-12) 1,000 00 every 2 Medic al mcg/mL (two) Branch injection weeks. cyanocobala Yes [id number] 1000ug 1 mL by [facility] min 7-19 [facility] (VITAMIN 00:00: [place] B-12) 1,000 00 every 2 Medic al mcg/mL (two) Branch injection weeks. cyanocobala 0 Yes [id number] 1000ug 1 mL by [facility] min 7-19 [facility] (VITAMIN 00:00: [place] B-12) 1,000 00 every 2 Medic al mcg/mL (two) Branch injection weeks. cyanocobala 0 Yes [id number] 1000ug 1 mL by [facility] min 7-19 [facility] (VITAMIN 00:00: [place] B-12) 1,000 00 every 2 Medic al mcg/mL (two) Branch injection weeks. cyanocobala 0 Yes [id number] 1000ug 1 mL by [facility] min 7-19 [facility] (VITAMIN 00:00: [place] B-12) 1,000 00 every 2 Medic al mcg/mL (two) Branch injection weeks. cyanocobala 0 Yes [id number] 1000ug 1 mL by [facility] min 7-19 [facility] (VITAMIN 00:00: [place] B-12) 1,000 00 every 2 Medic al mcg/mL (two) Branch injection weeks. cyanocobala 0 Yes [id number] 1000ug 1 mL by [facility] min 7-19 [facility] (VITAMIN 00:00: [place] B-12) 1,000 00 every 2 Medic al mcg/mL (two) Branch injection weeks. cyanocobala 0 Yes [id number] 1000ug 1 mL by [facility] min 7-19 [facility] (VITAMIN 00:00: [place] B-12) 1,000 00 every 2 Medic al mcg/mL (two) Branch injection weeks. cyanocobala 2021-0 Yes [id number] 1000ug 1 mL by [facility] min 7-19 [facility] (VITAMIN 00:00: [place] B-12) 1,000 00 every 2 Medic al mcg/mL (two) Branch injection weeks. cyanocobala 2021-0 Yes [id number] 1000ug 1 mL by [facility] min 7-19 [facility] (VITAMIN 00:00: [place] B-12) 1,000 00 every 2 Medic al mcg/mL (two) Branch injection weeks. cyanocobala 2021-0 Yes [id number] 1000ug 1 mL by [facility] min 7-19 [facility] (VITAMIN 00:00: [place] B-12) 1,000 00 every 2 Medic al mcg/mL (two) Branch injection weeks. cyanocobala 2021-0 Yes [id number] 1000ug 1 mL by [facility] min 7-19 [facility] (VITAMIN 00:00: [place] B-12) 1,000 00 every 2 Medic al mcg/mL (two) Branch injection weeks. cyanocobala 2021-0 Yes [id number] 1000ug 1 mL by [facility] min 7-19 [facility] (VITAMIN 00:00: [place] B-12) 1,000 00 every 2 Medic al mcg/mL (two) Branch injection weeks. cyanocobala 2021-0 Yes [id number] 1000ug 1 mL by [facility] min 7-19 [facility] (VITAMIN 00:00: [place] B-12) 1,000 00 every 2 Medic al mcg/mL (two) Branch injection weeks. cyanocobala 0 Yes [id number] 1000ug 1 mL by [facility] min 7-19 [facility] (VITAMIN 00:00: [place] B-12) 1,000 00 every 2 Medic al mcg/mL (two) Branch injection weeks. cyanocobala 2021-0 Yes [id number] 1000ug 1 mL by [facility] min 7-19 [facility] (VITAMIN 00:00: [place] B-12) 1,000 00 every 2 Medic al mcg/mL (two) Branch injection weeks. cyanocobala 2021-0 Yes [id number] 1000ug 1 mL by [facility] min 7-19 [facility] (VITAMIN 00:00: [place] B-12) 1,000 00 every 2 Medic al mcg/mL (two) Branch injection weeks. cyanocobala 2021-0 Yes [id number] 1000ug 1 mL by [facility] min 7-19 [facility] (VITAMIN 00:00: [place] B-12) 1,000 00 every 2 Medic al mcg/mL (two) Branch injection weeks. cyanocobala 0 Yes [id number] 1000ug 1 mL by [facility] min 7-19 [facility] (VITAMIN 00:00: [place] B-12) 1,000 00 every 2 Medic al mcg/mL (two) Branch injection weeks. cyanocobala 0 Yes [id number] 1000ug 1 mL by [facility] min 7-19 [facility] (VITAMIN 00:00: [place] B-12) 1,000 00 every 2 Medic al mcg/mL (two) Branch injection weeks. cyanocobala Yes [id number] 1000ug 1 mL by [facility] min 7-19 [facility] (VITAMIN 00:00: [place] B-12) 1,000 00 every 2 Medic al mcg/mL (two) Branch injection weeks. cyanocobala Yes [id number] 1000ug 1 mL by [facility] min 7-19 [facility] (VITAMIN 00:00: [place] B-12) 1,000 00 every 2 Medic al mcg/mL (two) Branch injection weeks. cyanocobala Yes [id number] 1000ug 1 mL by [facility] min 7-19 [facility] (VITAMIN 00:00: [place] B-12) 1,000 00 every 2 Medic al mcg/mL (two) Branch injection weeks. cyanocobala Yes [id number] 1000ug 1 mL by [facility] min 7-19 [facility] (VITAMIN 00:00: [place] B-12) 1,000 00 every 2 Medic al mcg/mL (two) Branch injection weeks. cyanocobala Yes [id number] 1000ug 1 mL by [facility] min 7-19 [facility] (VITAMIN 00:00: [place] B-12) 1,000 00 every 2 Medic al mcg/mL (two) Branch injection weeks. cyanocobala 0 Yes [id number] 1000ug 1 mL by [facility] min 7-19 [facility] (VITAMIN 00:00: [place] B-12) 1,000 00 every 2 Medic al mcg/mL (two) Branch injection weeks. cyanocobala 0 Yes [id number] 1000ug 1 mL by [facility] min 7-19 [facility] (VITAMIN 00:00: [place] B-12) 1,000 00 every 2 Medic al mcg/mL (two) Branch injection weeks. cyanocobala 0 Yes [id number] 1000ug 1 mL by [facility] min 7-19 [facility] (VITAMIN 00:00: [place] B-12) 1,000 00 every 2 Medic al mcg/mL (two) Branch injection weeks. cyanocobala Yes [id number] 1000ug 1 mL by [facility] min 7-19 [facility] (VITAMIN 00:00: [place] B-12) 1,000 00 every 2 Medic al mcg/mL (two) Branch injection weeks. cyanocobala Yes [id number] 1000ug 1 mL by [facility] min 7-19 [facility] (VITAMIN 00:00: [place] B-12) 1,000 00 every 2 Medic al mcg/mL (two) Branch injection weeks. cyanocobala Yes [id number] 1000ug 1 mL by [facility] min 7-19 [facility] (VITAMIN 00:00: [place] B-12) 1,000 00 every 2 Medic al mcg/mL (two) Branch injection weeks. cyanocobala Yes [id number] 1000ug 1 mL by [facility] min 7-19 [facility] (VITAMIN 00:00: [place] B-12) 1,000 00 every 2 Medic al mcg/mL (two) Branch injection weeks. cyanocobala Yes [id number] 1000ug 1 mL by [facility] min 7-19 [facility] (VITAMIN 00:00: [place] B-12) 1,000 00 every 2 Medic al mcg/mL (two) Branch injection weeks. cyanocobala 0 Yes [id number] 1000ug 1 mL by [facility] min 7-19 [facility] (VITAMIN 00:00: [place] B-12) 1,000 00 every 2 Medic al mcg/mL (two) Branch injection weeks. cyanocobala 0 Yes [id number] 1000ug 1 mL by [facility] min 7-19 [facility] (VITAMIN 00:00: [place] B-12) 1,000 00 every 2 Medic al mcg/mL (two) Branch injection weeks. cyanocobala 0 Yes [id number] 1000ug 1 mL by [facility] min 7-19 [facility] (VITAMIN 00:00: [place] B-12) 1,000 00 every 2 Medic al mcg/mL (two) Branch injection weeks. cyanocobala Yes [id number] 1000ug 1 mL by [facility] min 7-19 [facility] (VITAMIN 00:00: [place] B-12) 1,000 00 every 2 Medic al mcg/mL (two) Branch injection weeks. cyanocobala Yes [id number] 1000ug 1 mL by [facility] min 7-19 [facility] (VITAMIN 00:00: [place] B-12) 1,000 00 every 2 Medic al mcg/mL (two) Branch injection weeks. cyanocobala Yes [id number] 1000ug 1 mL by [facility] min 7-19 [facility] (VITAMIN 00:00: [place] B-12) 1,000 00 every 2 Medic al mcg/mL (two) Branch injection weeks. cyanocobala Yes [id number] 1000ug 1 mL by [facility] min 7-19 [facility] (VITAMIN 00:00: [place] B-12) 1,000 00 every 2 Medic al mcg/mL (two) Branch injection weeks. cyanocobala Yes [id number] 1000ug 1 mL by [facility] min 7-19 [facility] (VITAMIN 00:00: [place] B-12) 1,000 00 every 2 Medic al mcg/mL (two) Branch injection weeks. cyanocobala 2021-0 Yes [id number] 1000ug 1 mL by [facility] min 7-19 [facility] (VITAMIN 00:00: [place] B-12) 1,000 00 every 2 Medic al mcg/mL (two) Branch injection weeks. cyanocobala Yes [id number] 1000ug 1 mL by [facility] min 7-19 [facility] (VITAMIN 00:00: [place] B-12) 1,000 00 every 2 Medic al mcg/mL (two) Branch injection weeks. cyanocobala Yes [id number] 1000ug 1 mL by [facility] min 7-19 [facility] (VITAMIN 00:00: [place] B-12) 1,000 00 every 2 Medic al mcg/mL (two) Branch injection weeks. cyanocobala Yes [id number] 1000ug 1 mL by [facility] min 7-19 [facility] (VITAMIN 00:00: [place] B-12) 1,000 00 every 2 Medic al mcg/mL (two) Branch injection weeks. cyanocobala Yes [id number] 1000ug 1 mL by [facility] min 7-19 [facility] (VITAMIN 00:00: [place] B-12) 1,000 00 every 2 Medic al mcg/mL (two) Branch injection weeks. cyanocobala Yes [id number] 1000ug 1 mL by [facility] min 7-19 [facility] (VITAMIN 00:00: [place] B-12) 1,000 00 every 2 Medic al mcg/mL (two) Branch injection weeks. cyanocobala Yes [id number] 1000ug 1 mL by [facility] min 7-19 [facility] (VITAMIN 00:00: [place] B-12) 1,000 00 every 2 Medic al mcg/mL (two) Branch injection weeks. cyanocobala Yes [id number] 1000ug 1 mL by [facility] min 7-19 [facility] (VITAMIN 00:00: [place] B-12) 1,000 00 every 2 Medic al mcg/mL (two) Branch injection weeks. cyanocobala Yes [id number] 1000ug 1 mL by [facility] min 7-19 [facility] (VITAMIN 00:00: [place] B-12) 1,000 00 every 2 Medic al mcg/mL (two) Branch injection weeks. cyanocobala 2021-0 Yes [id number] 1000ug 1 mL by [facility] min 7-19 [facility] (VITAMIN 00:00: [place] B-12) 1,000 00 every 2 Medic al mcg/mL (two) Branch injection weeks. cyanocobala 2021-0 Yes [id number] 1000ug 1 mL by [facility] min 7-19 [facility] (VITAMIN 00:00: [place] B-12) 1,000 00 every 2 Medic al mcg/mL (two) Branch injection weeks. cyanocobala 2021-0 Yes [id number] 1000ug 1 mL by [facility] min 7-19 [facility] (VITAMIN 00:00: [place] B-12) 1,000 00 every 2 Medic al mcg/mL (two) Branch injection weeks. cyanocobala 2021-0 Yes [id number] 1000ug 1 mL by [facility] min 7-19 [facility] (VITAMIN 00:00: [place] B-12) 1,000 00 every 2 Medic al mcg/mL (two) Branch injection weeks. cyanocobala 2021-0 Yes [id number] 1000ug 1 mL by [facility] min 7-19 [facility] (VITAMIN 00:00: [place] B-12) 1,000 00 every 2 Medic al mcg/mL (two) Branch injection weeks. cyanocobala 2021-0 Yes [id number] 1000ug 1 mL by [facility] min 7-19 [facility] (VITAMIN 00:00: [place] B-12) 1,000 00 every 2 Medic al mcg/mL (two) Branch injection weeks. cyanocobala 2021-0 Yes [id number] 1000ug 1 mL by [facility] min 7-19 [facility] (VITAMIN 00:00: [place] B-12) 1,000 00 every 2 Medic al mcg/mL (two) Branch injection weeks. cyanocobala 2021-0 Yes [id number] 1000ug 1 mL by [facility] min 7-19 [facility] (VITAMIN 00:00: [place] B-12) 1,000 00 every 2 Medic al mcg/mL (two) Branch injection weeks. pyridoxine 0 Yes Take by Univ ers HCl, 6- mouth ity of vitamin B6, 14:22: daily. [place] (VITAMIN 42 Medical B-6 ORAL) Branch methocarbam Yes 750mg Take 750 U nivers ol 750 mg 6-23 mg by ity of tablet 14:22: mouth 2 [place] [address] (two) Medical times Branch daily. buprenorphi [address] 8 mg [facility] ne-naloxone 6-23 under the ity of (SUBOXONE) 14:22: tongue [place] 8-2 mg 42 every 12 Medical sublingual (twelve) Branc h film hours as needed for Pain (scale 7-10). Cholecalcif Yes 1{tbl} Take 1 [place], - tablet by ity of Vitamin D3, 14:22: mouth [place] (VITAMIN 42 daily. Medical D3) 2,000 Branch unit tablet ZINC ORAL Yes [facility] ity of 14:22: daily. [address] Branch COQ10, Yes Take by [facility] UBIQUINOL, 12-13 mouth. ity of ORAL 14:22: [address] Branch levocarniti Yes Take by Uni vers ne - mouth. ity of (L-CARNITIN 14:22: [place] E ORAL) Medical Branch metoprolol Yes 12.5mg Take 12.5 Univers tartrate 25 6-23 mg by ity of mg tablet 14:22: mouth. [address] Branch pyridoxine 0 Yes Take by [facility] ers HCl, 6- mouth ity of vitamin B6, 14:22: daily. [place] (VITAMIN 42 Medical B-6 ORAL) Branch methocarbam Yes 750mg Take 750 U nivers ol 750 mg 6-23 mg by ity of tablet 14:22: mouth 2 [place] [address] (two) Medical times [place] daily. buprenorphi 2021-[address] 8 mg [facility] ne-naloxone 6-23 under the ity of (SUBOXONE) 14:22: tongue [place] 8-2 mg 42 every 12 Medical sublingual (twelve) Branc h film hours as needed for Pain (scale 7-10). Cholecalcif Yes 1{tbl} Take 1 [place], 6-23 tablet by ity of Vitamin D3, 14:22: mouth [place] (VITAMIN 42 daily. Medical D3) 2,000 Branch unit tablet ZINC ORAL 0 Yes Take by Unive rs 6- mouth ity of 14:22: daily. [address] Branch COQ10, Yes Take by [facility] UBIQUINOL, 6- mouth. ity of ORAL 14:22: [address] Branch levocarniti Yes Take by Uni vers ne 6- mouth. ity of (L-CARNITIN 14:22: [place] E ORAL) Medical Branch metoprolol Yes 12.5mg Take 12.5 Univers tartrate 25 6-23 mg by ity of mg tablet 14:22: mouth. [address] Branch pyridoxine Yes Take by Univ ers HCl, 12-13 mouth ity of vitamin B6, 14:22: daily. [place] (VITAMIN 42 Medical B-6 ORAL) Branch methocarbam Yes 750mg Take 750 U nivers ol 750 mg 6-23 mg by ity of tablet 14:22: mouth 2 [place] [address] (two) Medical times Branch daily. buprenorphi Yes 8mg Place 8 mg [facility] ne-naloxone 12-13 under the ity of (SUBOXONE) 14:22: tongue [place] 8-2 mg 42 every 12 Medical sublingual (twelve) Branc h film hours as needed for Pain (scale 7-10). Cholecalcif Yes 1{tbl} Take 1 [place], 6-23 tablet by ity of Vitamin D3, 14:22: mouth [place] (VITAMIN 42 daily. Medical D3) 2,000 Branch unit tablet ZINC ORAL 0 Yes Take by Unive rs 6- mouth ity of 14:22: daily. [address] Branch COQ10, Yes Take by Univers UBIQUINOL, 6-23 mouth. ity of ORAL 14:22: [address] Branch levocarniti Yes Take by Uni vers ne 6- mouth. ity of (L-CARNITIN 14:22: [place] E ORAL) Medical Branch metoprolol Yes 12.5mg Take 12.5 [facility] tartrate 25 6-23 mg by ity of mg tablet 14:22: mouth. [address] Branch pyridoxine Yes Take by Univ ers HCl, 6- mouth ity of vitamin B6, 14:22: daily. [place] (VITAMIN 42 Medical B-6 ORAL) Branch methocarbam Yes 750mg Take 750 U nivers ol 750 mg 6-23 mg by ity of tablet 14:22: mouth 2 [place] [address] (two) Medical times [place] daily. buprenorphi Yes 8mg Place 8 mg [facility] ne-naloxone 6-23 under the ity of (SUBOXONE) 14:22: tongue [place] 8-2 mg 42 every 12 Medical sublingual (twelve) Branc h film hours as needed for Pain (scale 7-10). Cholecalcif Yes 1{tbl} Take 1 [place], 6-23 tablet by ity of Vitamin D3, 14:22: mouth [place] (VITAMIN 42 daily. Medical D3) 2,000 Branch unit tablet ZINC ORAL Yes [facility]- mouth ity of 14:22: daily. [address] Branch COQ10, Yes Take by [facility] UBIQUINOL, 6- mouth. ity of ORAL 14:22: [address] Branch levocarniti Yes Take by Uni vers ne 6- mouth. ity of (L-CARNITIN 14:22: [place] E ORAL) Medical Branch metoprolol Yes 12.5mg Take 12.5 Univers tartrate 25 6-23 mg by ity of mg tablet 14:22: mouth. [address] Branch pyridoxine Yes Take by [facility] ers HCl, 6-23 mouth ity of vitamin B6, 14:22: daily. [place] (VITAMIN 42 Medical B-6 ORAL) Branch methocarbam Yes 750mg Take 750 U nivers ol 750 mg 6-23 mg by ity of tablet 14:22: mouth 2 [place] [address] (two) Medical times [place] daily. buprenorphi Yes 8mg Place 8 mg [facility] ne-naloxone 6-23 under the ity of (SUBOXONE) 14:22: tongue [place] 8-2 mg 42 every 12 Medical sublingual (twelve) Branc h film hours as needed for Pain (scale 7-10). Cholecalcif Yes 1{tbl} Take 1 [place], 6-23 tablet by ity of Vitamin D3, 14:22: mouth [place] (VITAMIN 42 daily. Medical D3) 2,000 Branch unit tablet ZINC ORAL 0 Yes Take by Unive rs 12-13 mouth ity of 14:22: daily. [address] Branch COQ10, Yes Take by Univers UBIQUINOL, 12-13 mouth. ity of ORAL 14:22: [address] Branch levocarniti Yes Take by Uni vers ne 12-13 mouth. ity of (L-CARNITIN 14:22: [place] E ORAL) Medical Branch metoprolol Yes 12.5mg Take 12.5 Univers tartrate 25 6-23 mg by ity of mg tablet 14:22: mouth. [address] Branch pyridoxine Yes Take by Univ ers HCl, 12-13 mouth ity of vitamin B6, 14:22: [facility]. [facility] [place] Medical B-6 ORAL) Branch methocarbam Yes 750mg Take 750 U nivers ol 750 mg 6-23 mg by ity of tablet 14:22: mouth 2 [place] [address] (two) Medical times Branch daily. buprenorphi Yes 8mg Place 8 mg Univers ne-naloxone 12-13 under the ity of (SUBOXONE) 14:22: tongue [place] 8-2 mg 42 every 12 Medical sublingual (twelve) Branc h film hours as needed for Pain (scale 7-10). Cholecalcif Yes 1{tbl} Take 1 [place], 6-23 tablet by ity of Vitamin D3, 14:22: mouth [place] (VITAMIN 42 daily. Medical D3) 2,000 Branch unit tablet ZINC ORAL 0 Yes Take by Unive rs 12-13 mouth ity of 14:22: daily. [address] Branch COQ10, Yes Take by Univers UBIQUINOL, - mouth. ity of ORAL 14:22: [address] Branch levocarniti Yes Take by Uni vers ne 12-13 mouth. ity of (L-CARNITIN 14:22: [place] E ORAL) Medical Branch metoprolol Yes 12.5mg Take 12.5 Univers tartrate 25 6-23 mg by ity of mg tablet 14:22: mouth. [address] Branch pyridoxine Yes Take by Univ ers HCl, 6- mouth ity of vitamin B6, 14:22: daily. [place] (VITAMIN 42 Medical B-6 ORAL) Branch methocarbam Yes 750mg Take 750 U nivers ol 750 mg 6-23 mg by ity of tablet 14:22: mouth 2 [place] [address] (two) Medical times [place] daily. buprenorphi Yes [address]mg Place 8 mg Univers ne-naloxone 6-23 under the ity of (SUBOXONE) 14:22: tongue [place] 8-2 mg 42 every 12 Medical sublingual (twelve) Branc h film hours as needed for Pain (scale 7-10). Cholecalcif Yes 1{tbl} Take 1 [place], 6-23 tablet by ity of Vitamin D3, 14:22: mouth [place] (VITAMIN 42 daily. Medical D3) 2,000 Branch unit tablet ZINC ORAL Yes Take by Unive rs 6- mouth ity of 14:22: daily. [address] Branch COQ10, Yes Take by Univers UBIQUINOL, 6- mouth. ity of ORAL 14:22: [address] Branch levocarniti Yes Take by Uni vers ne 6-23 mouth. ity of (L-CARNITIN 14:22: [place] E ORAL) Medical Branch metoprolol Yes 12.5mg Take 12.5 Univers tartrate 25 6-23 mg by ity of mg tablet 14:22: mouth. [place] [address] Medical Branch pyridoxine Yes Take by Univ ers HCl, 6-23 mouth ity of vitamin B6, 14:22: daily. [place] (VITAMIN 42 Medical B-6 ORAL) Branch methocarbam Yes 750mg Take 750 U nivers ol 750 mg 6-23 mg by ity of tablet 14:22: mouth 2 [place] [address] (two) Medical times [place] daily. buprenorphi Yes 8mg Place 8 mg Univers ne-naloxone 6-23 under the ity of (SUBOXONE) 14:22: tongue [place] 8-2 mg 42 every 12 Medical sublingual (twelve) Branc h film hours as needed for Pain (scale 7-10). Cholecalcif 0 Yes 1{tbl} Take 1 [place], 6-23 tablet by ity of Vitamin D3, 14:22: mouth [place] (VITAMIN 42 daily. Medical D3) 2,000 Branch unit tablet ZINC ORAL 0 Yes Take by Unive rs 6- mouth ity of 14:22: daily. [address] Branch COQ10, Yes Take by Univers UBIQUINOL, 6-23 mouth. ity of ORAL 14:22: [address] Branch levocarniti Yes Take by Uni vers ne 6- mouth. ity of (L-CARNITIN 14:22: [place] E ORAL) Medical Branch metoprolol Yes 12.5mg Take 12.5 Univers tartrate 25 6-23 mg by ity of mg tablet 14:22: mouth. [address] Branch pyridoxine Yes Take by Univ ers HCl, 6- mouth ity of vitamin B6, 14:22: daily. [place] [facility] ([place] [address] Medical B-6 ORAL) Branch methocarbam Yes 750mg Take 750 U nivers ol 750 mg 6-23 mg by ity of tablet 14:22: mouth 2 [place] [address] (two) Medical times Branch daily. buprenorphi Yes [address]mg Place 8 mg Univers ne-naloxone 6-23 under the ity of (SUBOXONE) 14:22: tongue [place] 8-2 mg 42 every 12 Medical sublingual (twelve) Branc h film hours as needed for Pain (scale 7-10). Cholecalcif 0 Yes 1{tbl} Take 1 [place], 6-23 tablet by ity of Vitamin D3, 14:22: mouth [place] (VITAMIN 42 daily. Medical D3) 2,000 Branch unit tablet ZINC ORAL 0 Yes Take by Unive rs 6-23 mouth ity of 14:22: daily. [address] COQ10, Yes Take by Univers UBIQUINOL, 6-23 mouth. ity of ORAL 14:22: [place] 42 Medical Branch levocarniti Yes Take by Uni vers ne 12-13 mouth. ity of (L-CARNITIN 14:22: [place] E ORAL) Medical Branch metoprolol Yes 12.5mg Take 12.5 Univers tartrate 25 6-23 mg by ity of mg tablet 14:22: mouth. [address] Branch pyridoxine Yes Take by Univ ers HCl, 12-13 mouth ity of vitamin B6, 14:22: daily. [place] (VITAMIN 42 Medical B-6 ORAL) Branch methocarbam Yes 750mg Take 750 U nivers ol 750 mg 6-23 mg by ity of tablet 14:22: mouth 2 [place] [address] (two) Medical times [place] daily. buprenorphi Yes [address]mg Place 8 mg Univers ne-naloxone 12-13 under the ity of (SUBOXONE) 14:22: tongue [place] 8-2 mg 42 every 12 Medical sublingual (twelve) Branc h film hours as needed for Pain (scale 7-10). Cholecalcif Yes 1{tbl} Take 1 [place], 12-13 tablet by ity of Vitamin D3, 14:22: mouth [place] (VITAMIN 42 daily. Medical D3) 2,000 Branch unit tablet ZINC ORAL Yes [facility]13 mouth ity of 14:22: daily. [address] Branch COQ10, Yes Take by Univers UBIQUINOL, 12-13 mouth. ity of ORAL 14:22: [address] Branch levocarniti Yes Take by Uni vers ne 12-13 mouth. ity of (L-CARNITIN 14:22: [place] E ORAL) Medical Branch metoprolol Yes 12.5mg Take 12.5 Univers tartrate 25 6-23 mg by ity of mg tablet 14:22: mouth. [place] [address] Medical Branch pyridoxine Yes Take by Univ ers HCl, 12-13 mouth ity of vitamin B6, 14:22: daily. [place] (VITAMIN 42 Medical B-6 ORAL) Branch methocarbam Yes 750mg Take 750 U nivers ol 750 mg 6-23 mg by ity of tablet 14:22: mouth 2 [place] [address] (two) Medical times Branch daily. buprenorphi [address] 8 mg Univers ne-naloxone 6-23 under the ity of (SUBOXONE) 14:22: tongue [place] 8-2 mg 42 every 12 Medical sublingual (twelve) Branc h film hours as needed for Pain (scale 7-10). Cholecalcif Yes 1{tbl} Take 1 [place], 6-23 tablet by ity of Vitamin D3, 14:22: mouth [place] (VITAMIN 42 daily. Medical D3) 2,000 Branch unit tablet ZINC ORAL 0 Yes Take by Unive rs 6- mouth ity of 14:22: daily. [address] Branch COQ10, Yes Take by Univers UBIQUINOL, 6-23 mouth. ity of ORAL 14:22: [address] Branch levocarniti Yes Take by Uni vers ne 6- mouth. ity of (L-CARNITIN 14:22: [place] E ORAL) Medical Branch metoprolol Yes 12.5mg Take 12.5 Univers tartrate 25 6-23 mg by ity of mg tablet 14:22: mouth. [address] Branch pyridoxine Yes Take by Univ ers HCl, 6- mouth ity of vitamin B6, 14:22: daily. [place] [facility] ([place] [address] Medical B-6 ORAL) Branch methocarbam Yes 750mg Take 750 U nivers ol 750 mg 6-23 mg by ity of tablet 14:22: mouth 2 [place] [address] (two) Medical times [place] daily. buprenorphi [address] 8 mg Univers ne-naloxone 6-23 under the ity of (SUBOXONE) 14:22: tongue [place] 8-2 mg 42 every 12 Medical sublingual (twelve) Branc h film hours as needed for Pain (scale 7-10). Cholecalcif 2021-0 Yes 1{tbl} Take 1 [place], 6-23 tablet by ity of Vitamin D3, 14:22: mouth [place] (VITAMIN 42 daily. Medical D3) 2,000 Branch unit tablet ZINC ORAL 0 Yes Take by Unive rs 6-23 mouth ity of 14:22: daily. [address] Branch COQ10, 0 Yes Take by [facility] UBIQUINOL, - mouth. ity of ORAL 14:22: [place] [address] Medical Branch levocarniti Yes Take by Uni vers ne 12-13 mouth. ity of (L-CARNITIN 14:22: [place] E ORAL) Medical Branch metoprolol Yes 12.5mg Take 12.5 Univers tartrate 25 6-23 mg by ity of mg tablet 14:22: mouth. [address] Branch pyridoxine Yes Take by Univ ers HCl, 12-13 mouth ity of vitamin B6, 14:22: daily. [place] (VITAMIN 42 Medical B-6 ORAL) Branch methocarbam Yes 750mg Take 750 U nivers ol 750 mg 6-23 mg by ity of tablet 14:22: mouth 2 [place] [address] (two) Medical times Branch daily. buprenorphi Yes 8mg Place 8 mg Univers ne-naloxone 12-13 under the ity of (SUBOXONE) 14:22: tongue [place] 8-2 mg 42 every 12 Medical sublingual (twelve) Branc h film hours as needed for Pain (scale 7-10). Cholecalcif Yes 1{tbl} Take 1 [place], 12-13 tablet by ity of Vitamin D3, 14:22: mouth [place] (VITAMIN 42 daily. Medical D3) 2,000 Branch unit tablet ZINC ORAL Yes Take by Unive rs 12-13 mouth ity of 14:22: daily. [address] Branch COQ10, Yes Take by Univers UBIQUINOL, - mouth. ity of ORAL 14:22: [address] Branch levocarniti Yes Take by Uni vers ne 12-13 mouth. ity of (L-CARNITIN 14:22: [place] E ORAL) Medical Branch metoprolol Yes 12.5mg Take 12.5 Univers tartrate 25 6-23 mg by ity of mg tablet 14:22: mouth. [place] [address] Medical Branch pyridoxine Yes Take by Univ ers HCl, - mouth ity of vitamin B6, 14:22: [place]. [place] (VIT[place]IN 42 Medical B-6 ORAL) Branch methocarbam Yes 750mg Take 750 U nivers ol 750 mg 6-23 mg by ity of tablet 14:22: mouth 2 [place] [address] (two) Medical times [place] daily. buprenorphi Yes 8mg Place 8 mg Univers ne-naloxone 6-23 under the ity of (SUBOXONE) 14:22: tongue [place] 8-2 mg 42 every 12 Medical sublingual (twelve) Branc h film hours as needed for Pain (scale 7-10). Cholecalcif Yes 1{tbl} Take 1 [place], 6-23 tablet by ity of Vitamin D3, 14:22: mouth [place] (VITAMIN 42 daily. Medical D3) 2,000 Branch unit tablet ZINC ORAL Yes Take by Unive rs 12-13 mouth ity of 14:22: daily. [address] Branch COQ10, Yes Take by Univers UBIQUINOL, 12-13 mouth. ity of ORAL 14:22: [address] levocarniti Yes Take by Uni vers ne 12-13 mouth. ity of (L-CARNITIN 14:22: [place] E ORAL) Medical Branch metoprolol Yes 12.5mg Take 12.5 Univers tartrate 25 6-23 mg by ity of mg tablet 14:22: mouth. [address] Branch pyridoxine Yes Take by [facility] ers HCl, 12-13 mouth ity of vitamin B6, 14:22: daily. [place] [facility] (VITAMIN 42 Medical B-6 ORAL) [place] methocarbam Yes 750mg Take 750 U nivers ol 750 mg 6-23 mg by ity of tablet 14:22: mouth 2 [place] [address] (two) Medical times [place] daily. buprenorphi Yes 8mg Place 8 mg Univers ne-naloxone 6-23 under the ity of (SUBOXONE) 14:22: tongue [place] 8-2 mg 42 every 12 Medical sublingual (twelve) Branc h film hours as needed for Pain (scale 7-10). Cholecalcif Yes 1{tbl} Take 1 [place], 6-23 tablet by ity of Vitamin D3, 14:22: mouth [place] (VITAMIN 42 daily. Medical D3) 2,000 Branch unit tablet ZINC ORAL Yes Take by Univ ers 6-23 mouth ity of 14:22: daily. [address] Branch COQ10, Yes Take by Univers UBIQUINOL, 6- mouth. ity of ORAL 14:22: [address] Branch levocarniti Yes Take by Uni vers ne - mouth. ity of (L-CARNITIN 14:22: [place] E ORAL) Medical Branch metoprolol Yes 12.5mg Take 12.5 Univers tartrate 25 6-23 mg by ity of mg tablet 14:22: mouth. [address] Branch pyridoxine Yes Take by Univ ers HCl, - mouth ity of vitamin B6, 14:22: daily. [place] (VITAMIN 42 Medical B-6 ORAL) Branch methocarbam Yes 750mg Take 750 U nivers ol 750 mg 6-23 mg by ity of tablet 14:22: mouth 2 [place] 42 (two) Medical times Branch daily. buprenorphi Yes 8mg Place 8 mg Univers ne-naloxone 12-13 under the ity of (SUBOXONE) 14:22: tongue [place] 8-2 mg 42 every 12 Medical sublingual (twelve) Branc h film hours as needed for Pain (scale 7-10). Cholecalcif Yes 1{tbl} Take 1 [place], - tablet by ity of Vitamin D3, 14:22: mouth [place] (VITAMIN 42 daily. Medical D3) 2,000 Branch unit tablet ZINC ORAL Yes Take by Unive rs 6 mouth ity of 14:22: daily. [address] Branch COQ10, Yes Take by Univers UBIQUINOL, 6-23 mouth. ity of ORAL 14:22: [address] Branch levocarniti Yes Take by Uni vers ne - mouth. ity of (L-CARNITIN 14:22: [place] E ORAL) Medical Branch metoprolol Yes 12.5mg Take 12.5 Univers tartrate 25 6-23 mg by ity of mg tablet 14:22: mouth. [address] pyridoxine Yes Take by Univ ers HCl, 6- mouth ity of vitamin B6, 14:22: daily. [place] (VITAMIN 42 Medical B-6 ORAL) Branch methocarbam Yes 750mg Take 750 U nivers ol 750 mg 6-23 mg by ity of tablet 14:22: mouth 2 [place] [address] (two) Medical times [place] daily. buprenorphi [address] 8 mg Univers ne-naloxone 6-23 under the ity of (SUBOXONE) 14:22: tongue [place] 8-2 mg 42 every 12 Medical sublingual (twelve) Branc h film hours as needed for Pain (scale 7-10). Cholecalcif Yes 1{tbl} Take 1 [place], 6-23 tablet by ity of Vitamin D3, 14:22: mouth [place] (VITAMIN 42 daily. Medical D3) 2,000 [place] unit tablet ZINC ORAL Yes Take by Unive rs - mouth ity of 14:22: daily. [address] Branch COQ10, Yes Take by Univers UBIQUINOL, 12-13 mouth. ity of ORAL 14:22: [address] Branch levocarniti Yes Take by Uni vers ne 12-13 mouth. ity of (L-CARNITIN 14:22: [place] E ORAL) Medical Branch metoprolol Yes 12.5mg Take 12.5 Univers tartrate 25 6-23 mg by ity of mg tablet 14:22: mouth. [address] Branch pyridoxine Yes Take by Univ ers HCl, 12-13 mouth ity of vitamin B6, 14:22: daily. [place] (VITAMIN 42 Medical B-6 ORAL) Branch methocarbam Yes 750mg Take 750 U nivers ol 750 mg 6-23 mg by ity of tablet 14:22: mouth 2 [place] [address] (two) Medical [facility] daily. buprenorphi [address] 8 mg Univers ne-naloxone 6-23 under the ity of (SUBOXONE) 14:22: tongue [place] 8-2 mg 42 every 12 Medical sublingual (twelve) Branc h film hours as needed for Pain (scale 7-10). Cholecalcif 0 Yes 1{tbl} Take 1 [place], 6-23 tablet by ity of Vitamin D3, 14:22: mouth [place] (VITAMIN 42 daily. Medical D3) 2,000 Branch unit tablet ZINC ORAL Yes Take by Unive rs 6-23 mouth ity of 14:22: daily. [address] Branch COQ10, Yes Take by Univers UBIQUINOL, 6-23 mouth. ity of ORAL 14:22: [address] Branch levocarniti Yes Take by Uni vers ne 6-23 mouth. ity of (L-CARNITIN 14:22: [place] E ORAL) Medical Branch metoprolol Yes 12.5mg Take 12.5 Univers tartrate 25 6-23 mg by ity of mg tablet 14:22: mouth. [address] Branch pyridoxine Yes Take by Univ ers HCl, 6- mouth ity of vitamin B6, 14:22: daily. [place] [facility] (VITAMIN 42 Medical B-6 ORAL) Branch methocarbam Yes 750mg Take 750 U nivers ol 750 mg 6-23 mg by ity of tablet 14:22: mouth 2 [place] [address] (two) Medical times Branch daily. buprenorphi Yes 8mg Place 8 mg Univers ne-naloxone 6- under the ity of (SUBOXONE) 14:22: tongue [place] 8-2 mg 42 every 12 Medical sublingual (twelve) Branc h film hours as needed for Pain (scale 7-10). Cholecalcif Yes 1{tbl} Take 1 [place], 6-23 tablet by ity of Vitamin D3, 14:22: mouth [place] (VITAMIN 42 daily. Medical D3) 2,000 Branch unit tablet ZINC ORAL Yes Take by Unive rs 6-23 mouth ity of 14:22: daily. [address] Branch COQ10, Yes Take by Univers UBIQUINOL, 6-23 mouth. ity of ORAL 14:22: [address] Branch levocarniti Yes Take by Uni vers ne 6-23 mouth. ity of (L-CARNITIN 14:22: [place] E ORAL) Medical Branch metoprolol Yes 12.5mg Take 12.5 Univers tartrate 25 6-23 mg by ity of mg tablet 14:22: mouth. [address] Branch pyridoxine Yes Take by Univ ers HCl, 6-23 mouth ity of vitamin B6, 14:22: daily. [place] (VITAMIN 42 Medical B-6 ORAL) Branch methocarbam Yes 750mg Take 750 U nivers ol 750 mg 6-23 mg by ity of tablet 14:22: mouth 2 [place] [address] (two) Medical times [place] daily. buprenorphi Yes 8mg Place 8 mg Univers ne-naloxone 6-23 under the ity of (SUBOXONE) 14:22: tongue [place] 8-2 mg 42 every 12 Medical sublingual (twelve) Branc h film hours as needed for Pain (scale 7-10). Cholecalcif Yes 1{tbl} Take 1 [place], 6-23 tablet by ity of Vitamin D3, 14:22: mouth [place] (VITAMIN 42 daily. Medical D3) 2,000 Branch unit tablet ZINC ORAL Yes [facility] - mouth ity of 14:22: daily. [address] COQ10, Yes Take by [facility] UBIQUINOL, 12-13 mouth. ity of ORAL 14:22: [address] Branch levocarniti Yes Take by Uni vers ne - mouth. ity of (L-CARNITIN 14:22: [facility] ORAL) [address] [place] [address] Branch metoprolol Yes 12.5mg Take 12.5 Univers tartrate 25 6-23 mg by ity of mg tablet 14:22: mouth. [address] Branch pyridoxine Yes Take by [facility] ers HCl, - mouth ity of vitamin B6, 14:22: daily. [place] (VITAMIN 42 Medical B-6 ORAL) Branch methocarbam Yes 750mg Take 750 U nivers ol 750 mg 6-23 mg by ity of tablet 14:22: mouth 2 [place] [address] (two) Medical times [place] daily. buprenor[place] [address] 8 mg Univers ne-naloxone 6-23 under the ity of (SUBOXONE) 14:22: tongue [place] 8-2 mg 42 every 12 Medical sublingual (twelve) Branc h film hours as needed for Pain (scale 7-10). Cholecalcif 0 Yes 1{tbl} Take 1 [place], 6-23 tablet by ity of Vitamin D3, 14:22: mouth [place] (VITAMIN 42 daily. Medical D3) 2,000 Branch unit tablet ZINC ORAL 0 Yes Take by Unive rs 6- mouth ity of 14:22: daily. [address] Branch COQ10, Yes Take by Univers UBIQUINOL, 6- mouth. ity of ORAL 14:22: [address] Branch levocarniti Yes Take by Uni vers ne 12-13 mouth. ity of (L-CARNITIN 14:22: [place] E ORAL) Medical Branch metoprolol Yes 12.5mg Take 12.5 Univers tartrate 25 6-23 mg by ity of mg tablet 14:22: mouth. [address] Branch pyridoxine Yes Take by Univ ers HCl, 12-13 mouth ity of vitamin B6, 14:22: [facility]. [facility] [place] ([facility] Medical B-6 ORAL) Branch methocarbam Yes 750mg Take 750 U nivers ol 750 mg 6-23 mg by ity of tablet 14:22: mouth 2 [place] [address] (two) Medical times Branch daily. buprenorphi Yes 8mg Place 8 mg Univers ne-naloxone - under the ity of (SUBOXONE) 14:22: tongue [place] 8-2 mg 42 every 12 Medical sublingual (twelve) Branc h film hours as needed for Pain (scale 7-10). Cholecalcif Yes 1{tbl} Take 1 [place], 6-23 tablet by ity of Vitamin D3, 14:22: mouth [place] (VITAMIN 42 daily. Medical D3) 2,000 Branch unit tablet ZINC ORAL Yes Take by Unive rs 12-13 mouth ity of 14:22: daily. [address] Branch COQ10, Yes Take by Univers UBIQUINOL, 6-23 mouth. ity of ORAL 14:22: [address] Branch levocarniti Yes Take by Uni vers ne 12-13 mouth. ity of (L-CARNITIN 14:22: [place] E ORAL) Medical Branch metoprolol Yes 12.5mg Take 12.5 Univers tartrate 25 6-23 mg by ity of mg tablet 14:22: mouth. [address] Branch pyridoxine Yes Take by Univ ers HCl, 6- mouth ity of vitamin B6, 14:22: daily. [place] (VITAMIN 42 Medical B-6 ORAL) Branch methocarbam Yes 750mg Take 750 U nivers ol 750 mg 6-23 mg by ity of tablet 14:22: mouth 2 [place] [address] (two) Medical times [place] daily. b[place]or[place] [address] 8 mg Univers ne-naloxone 6-23 under the ity of (SUBOXONE) 14:22: tongue [place] 8-2 mg 42 every 12 Medical sublingual (twelve) Branc h film hours as needed for Pain (scale 7-10). Cholecalcif Yes 1{tbl} Take 1 [place], 6- tablet by ity of Vitamin D3, 14:22: mouth [place] (VITAMIN 42 daily. Medical D3) 2,000 Branch unit tablet ZINC ORAL Yes Take by [facility] - mouth ity of 14:22: daily. [address] Branch COQ10, Yes Take by Univers UBIQUINOL, 12-13 mouth. ity of ORAL 14:22: [address] Branch levocarniti Yes Take by Uni vers ne - mouth. ity of (L-CARNITIN 14:22: [place] ORAL) Medical Branch metoprolol Yes 12.5mg Take 12.5 Univers tartrate 25 6-23 mg by ity of mg tablet 14:22: mouth. [address] Branch pyridoxine Yes Take by [facility] ers HCl, 6- mouth ity of vitamin B6, 14:22: daily. [place] (VITAMIN 42 Medical B-6 ORAL) Branch methocarbam Yes 750mg Take 750 U nivers ol 750 mg 6-23 mg by ity of tablet 14:22: mouth 2 [place] [address] (two) Medical times [place] daily. [place] [address] 8 mg Univers ne-naloxone 6-23 under the ity of (SUBOXONE) 14:22: tongue [place] 8-2 mg 42 every 12 Medical sublingual (twelve) Branc h film hours as needed for Pain (scale 7-10). Cholecalcif Yes 1{tbl} Take 1 [place], 6-23 tablet by ity of Vitamin D3, 14:22: mouth [place] (VITAMIN 42 daily. Medical D3) 2,000 Branch unit tablet ZINC ORAL 0 Yes Take by Unive rs 6- mouth ity of 14:22: daily. [address] Branch COQ10, Yes Take by Univers UBIQUINOL, 6- mouth. ity of ORAL 14:22: [address] Branch levocarniti Yes Take by Uni vers ne 6- mouth. ity of (L-CARNITIN 14:22: [place] E ORAL) Medical Branch metoprolol Yes 12.5mg Take 12.5 Univers tartrate 25 6-23 mg by ity of mg tablet 14:22: mouth. [address] Branch pyridoxine Yes Take by Univ ers HCl, 12-13 mouth ity of vitamin B6, 14:22: daily. [place] (VITAMIN 42 Medical B-6 ORAL) Branch methocarbam Yes 750mg Take 750 U nivers ol 750 mg 6-23 mg by ity of tablet 14:22: mouth 2 [place] [address] (two) Medical times Branch daily. buprenorphi Yes 8mg Place 8 mg Univers ne-naloxone 12-13 under the ity of (SUBOXONE) 14:22: tongue [place] 8-2 mg 42 every 12 Medical sublingual (twelve) Branc h film hours as needed for Pain (scale 7-10). Cholecalcif Yes 1{tbl} Take 1 [place], 6-23 tablet by ity of Vitamin D3, 14:22: mouth [place] (VITAMIN 42 daily. Medical D3) 2,000 Branch unit tablet ZINC ORAL 0 Yes Take by Unive rs 6-23 mouth ity of 14:22: daily. [address] Branch COQ10, Yes Take by Univers UBIQUINOL, 6-23 mouth. ity of ORAL 14:22: [address] Branch levocarniti Yes Take by Uni vers ne 6- mouth. ity of (L-CARNITIN 14:22: [place] E ORAL) Medical Branch metoprolol Yes 12.5mg Take 12.5 Univers tartrate 25 6-23 mg by ity of mg tablet 14:22: mouth. [address] Branch pyridoxine Yes Take by Univ ers HCl, 6-23 mouth ity of vitamin B6, 14:22: daily. [place] (VITAMIN 42 Medical B-6 ORAL) Branch methocarbam Yes 750mg Take 750 U nivers ol 750 mg 6-23 mg by ity of tablet 14:22: mouth 2 [place] [address] (two) Medical times [place] daily. buprenorphi Yes 8mg Place 8 mg Univers ne-naloxone 6-23 under the ity of (SUBOXONE) 14:22: tongue [place] 8-2 mg 42 every 12 Medical sublingual (twelve) Branc h film hours as needed for Pain (scale 7-10). Cholecalcif Yes 1{tbl} Take 1 [place], 6-23 tablet by ity of Vitamin D3, 14:22: mouth [place] (VITAMIN 42 daily. Medical D3) 2,000 Branch unit tablet ZINC ORAL Yes Take by [facility] 6- mouth ity of 14:22: daily. [address] Branch COQ10, Yes Take by Univers UBIQUINOL, 6- mouth. ity of ORAL 14:22: [address] Branch levocarniti Yes Take by Uni vers ne 6-23 mouth. ity of (L-CARNITIN 14:22: [place] E ORAL) Medical Branch metoprolol Yes 12.5mg Take 12.5 Univers tartrate 25 6-23 mg by ity of mg tablet 14:22: mouth. [address] Branch pyridoxine Yes Take by Univ ers HCl, 6-23 mouth ity of vitamin B6, 14:22: daily. [place] (VITAMIN 42 Medical B-6 ORAL) Branch methocarbam Yes 750mg Take 750 U nivers ol 750 mg 6-23 mg by ity of tablet 14:22: mouth 2 [place] [address] (two) Medical times [place] daily. buprenorphi Yes 8mg [address] 8 mg Univers ne-naloxone 6-23 under the ity of (SUBOXONE) 14:22: tongue [place] 8-2 mg 42 every 12 Medical sublingual (twelve) Branc h film hours as needed for Pain (scale 7-10). Cholecalcif Yes 1{tbl} Take 1 [place], 6-23 tablet by ity of Vitamin D3, 14:22: mouth [place] (VITAMIN 42 daily. Medical D3) 2,000 Branch unit tablet ZINC ORAL 0 Yes Take by Unive rs 6 mouth ity of 14:22: daily. [address] Branch COQ10, Yes Take by Univers UBIQUINOL, - mouth. ity of ORAL 14:22: [address] Branch levocarniti Yes Take by Uni vers ne 12-13 mouth. ity of (L-CARNITIN 14:22: [place] E ORAL) Medical Branch metoprolol Yes 12.5mg Take 12.5 Univers tartrate 25 6-23 mg by ity of mg tablet 14:22: mouth. [address] Branch pyridoxine Yes Take by Univ ers HCl, 12-13 mouth ity of vitamin B6, 14:22: [facility]. [facility] [place] (V[facility] Medical B-6 ORAL) Branch methocarbam Yes 750mg Take 750 U nivers ol 750 mg 6-23 mg by ity of tablet 14:22: mouth 2 [place] [address] (two) Medical times Branch daily. buprenorphi Yes 8mg Place 8 mg Univers ne-naloxone 12-13 under the ity of (SUBOXONE) 14:22: tongue [place] 8-2 mg 42 every 12 Medical sublingual (twelve) Branc h film hours as needed for Pain (scale 7-10). Cholecalcif Yes 1{tbl} Take 1 [place], 6-23 tablet by ity of Vitamin D3, 14:22: mouth [place] (VITAMIN 42 daily. Medical D3) 2,000 Branch unit tablet ZINC ORAL 0 Yes Take by Unive rs 6- mouth ity of 14:22: daily. [address] Branch COQ10, Yes Take by Univers UBIQUINOL, 6-23 mouth. ity of ORAL 14:22: [address] Branch levocarniti Yes Take by Uni vers ne 12-13 mouth. ity of (L-CARNITIN 14:22: [place] E ORAL) Medical Branch metoprolol Yes 12.5mg Take 12.5 Univers tartrate 25 6-23 mg by ity of mg tablet 14:22: mouth. [address] Branch pyridoxine Yes Take by Univ ers HCl, 6- mouth ity of vitamin B6, 14:22: daily. [place] (VITAMIN 42 Medical B-6 ORAL) Branch methocarbam Yes 750mg Take 750 U nivers ol 750 mg 6-23 mg by ity of tablet 14:22: mouth 2 [place] [address] (two) Medical times [place] daily. buprenorphi Yes 8mg [address] 8 mg Univers ne-naloxone 6-23 under the ity of (SUBOXONE) 14:22: tongue [place] 8-2 mg 42 every 12 Medical sublingual (twelve) Branc h film hours as needed for Pain (scale 7-10). Cholecalcif Yes 1{tbl} Take 1 [place], 6-23 tablet by ity of Vitamin D3, 14:22: mouth [place] (VITAMIN 42 daily. Medical D3) 2,000 Branch unit tablet ZINC ORAL Yes Take by Unive rs 6- mouth ity of 14:22: daily. [address] Branch COQ10, Yes Take by Univers UBIQUINOL, - mouth. ity of ORAL 14:22: [address] Branch levocarniti Yes Take by Uni vers ne 6- mouth. ity of (L-CARNITIN 14:22: [place] E ORAL) Medical Branch metoprolol Yes 12.5mg Take 12.5 Univers tartrate 25 6-23 mg by ity of mg tablet 14:22: mouth. [place] [address] Medical Branch pyridoxine Yes Take by Univ ers HCl, 6-23 mouth ity of vitamin B6, 14:22: daily. [place] (VITAMIN 42 Medical B-6 ORAL) Branch methocarbam Yes 750mg Take 750 U nivers ol 750 mg 6-23 mg by ity of tablet 14:22: mouth 2 [place] [address] (two) Medical times [place] daily. buprenorphi Yes 8mg Place 8 mg Univers ne-naloxone 6-23 under the ity of (SUBOXONE) 14:22: tongue [place] 8-2 mg 42 every 12 Medical sublingual (twelve) Branc h film hours as needed for Pain (scale 7-10). Cholecalcif Yes 1{tbl} Take 1 [place], 6-23 tablet by ity of Vitamin D3, 14:22: mouth [place] (VITAMIN 42 daily. Medical D3) 2,000 Branch unit tablet ZINC ORAL Yes Take by Unive rs 6-23 mouth ity of 14:22: daily. [address] Branch COQ10, Yes Take by Univers UBIQUINOL, 6-23 mouth. ity of ORAL 14:22: [address] Branch levocarniti Yes Take by Uni vers ne 6- mouth. ity of (L-CARNITIN 14:22: [place] ORAL) Medical Branch metoprolol Yes 12.5mg Take 12.5 Univers tartrate 25 6-23 mg by ity of mg tablet 14:22: mouth. [address] Branch pyridoxine Yes Take by Univ ers HCl, 6- mouth ity of vitamin B6, 14:22: daily. [facility] ([place] [address] Medical B-6 ORAL) Branch methocarbam Yes 750mg Take 750 U nivers ol 750 mg 6-23 mg by ity of tablet 14:22: mouth 2 [place] [address] (two) Medical times Branch daily. buprenorphi Yes [address] 8 mg Univers ne-naloxone 6-23 under the ity of (SUBOXONE) 14:22: tongue [place] 8-2 mg 42 every 12 Medical sublingual (twelve) Branc h film hours as needed for Pain (scale 7-10). Cholecalcif Yes 1{tbl} Take 1 [place], 6-23 tablet by ity of Vitamin D3, 14:22: mouth [place] (VITAMIN 42 daily. Medical D3) 2,000 Branch unit tablet ZINC ORAL 0 Yes Take by Unive rs 6-23 mouth ity of 14:22: daily. [address] Branch COQ10, Yes Take by Univers UBIQUINOL, 6-23 mouth. ity of ORAL 14:22: [place] 42 Medical Branch levocarniti Yes Take by Uni vers ne - mouth. ity of (L-CARNITIN 14:22: [place] E ORAL) Medical Branch metoprolol Yes 12.5mg Take 12.5 Univers tartrate 25 6-23 mg by ity of mg tablet 14:22: mouth. [place] [address] Medical Branch ARIPiprazol 2021- No [id number] 15mg Take 1 Univers e 15 mg 12-13-15 tablet by ity of tablet 00:00: 00:00 mouth [place] 00 :00 daily. Medical Branch ARIPiprazol 2021- No [id number] 15mg Take 1 Univers e 15 mg 12-13-15 tablet by ity of tablet 00:00: 00:00 mouth [place] 00 :00 daily. Medical Branch ARIPiprazol 2021- No [id number] 15mg Take 1 Univers e 15 mg 12-13-15 tablet by ity of tablet 00:00: 00:00 mouth [place] 00 :00 daily. Medical Branch desvenlafax 2021- No [id number] 200mg Take 2 Univers ine 12-13-13 tablets by ity of succinate 00:00: 00:00 mouth [place] (PRISTIQ) 00 :00 daily. Medical 100 mg 24 Branch hr tablet desvenlafax 2021- No [id number] 200mg Take 2 Univers ine -15 03-13 tablets by ity of succinate 00:00: 00:00 mouth [place] (PRISTIQ) 00 :00 daily. Medical 100 mg 24 Branch hr tablet desvenlafax 2021- No [id number] 200mg Take 2 Univers ine -15 03-13 tablets by ity of succinate 00:00: 00:00 mouth [place] (PRISTIQ) 00 :00 daily. Medical 100 mg 24 Branch hr tablet buPROPion 2- No [id number] 150mg Take 1 Univers XL 150 mg 12-13 09-04 tablet by ity of 24 hr 00:00: 00:00 mouth [place] tablet 00 :00 daily. Medical Branch ALLOPURINOL Yes [id number] 300mg TAKE 1 Univers 300 mg 6-14 TABLET BY ity of tablet 00:00: MOUTH [place] 00 DAILY. Medical Branch ALLOPURINOL 2021-0 Yes [id number] 300mg TAKE 1 Univers 300 mg 6-14 TABLET BY ity of tablet 00:00: MOUTH [place] 00 DAILY. [facility] Branch ALLOPURINOL 2021-0 Yes [id number] 300mg TAKE 1 Univers 300 mg 6-14 TABLET BY ity of tablet 00:00: MOUTH [place] 00 DAILY. [facility] Branch ALLOPURINOL 2021-0 Yes [id number] 300mg TAKE 1 Univers 300 mg 6-14 TABLET BY ity of tablet 00:00: MOUTH [place] 00 DAILY. [facility] Branch ALLOPURINOL 2021-0 Yes [id number] 300mg TAKE 1 Univers 300 mg 6-14 TABLET BY ity of tablet 00:00: MOUTH [place] 00 DAILY. [facility] Branch ALLOPURINOL 2021-0 Yes [id number] 300mg TAKE 1 Univers 300 mg 6-14 TABLET BY ity of tablet 00:00: MOUTH [place] 00 DAILY. [facility] Branch ALLOPURINOL 2021-0 Yes [id number] 300mg TAKE 1 Univers 300 mg 6-14 TABLET BY ity of tablet 00:00: MOUTH [place] 00 DAILY. [facility] Branch ALLOPURINOL 2021-0 Yes [id number] 300mg TAKE 1 Univers 300 mg 6-14 TABLET BY ity of tablet 00:00: MOUTH [place] 00 DAILY. [facility] Branch ALLOPURINOL 2021-0 Yes [id number] 300mg TAKE 1 Univers 300 mg 6-14 TABLET BY ity of tablet 00:00: MOUTH [place] 00 DAILY. [facility] ALLOPURINOL 2021-0 Yes [id number] 300mg TAKE 1 Univers 300 mg 6-14 TABLET BY ity of tablet 00:00: MOUTH [place] 00 DAILY. [facility] ALLOPURINOL 2021-0 Yes [id number] 300mg TAKE 1 Univers 300 mg 6-14 TABLET BY ity of tablet 00:00: MOUTH [place] 00 DAILY. [facility] Branch ALLOPURINOL 2021-0 Yes [id number] 300mg TAKE 1 Univers 300 mg 6-14 TABLET BY ity of tablet 00:00: MOUTH [place] 00 DAILY. [facility] Branch ALLOPURINOL 2021-0 Yes [id number] 300mg TAKE 1 Univers 300 mg 6-14 TABLET BY ity of tablet 00:00: MOUTH [place] 00 DAILY. [facility] ALLOPURINOL 2021-0 Yes [id number] 300mg TAKE 1 Univers 300 mg 6-14 TABLET BY ity of tablet 00:00: MOUTH [place] 00 DAILY. [facility] Branch ALLOPURINOL 2021-0 Yes [id number] 300mg TAKE 1 Univers 300 mg 6-14 TABLET BY ity of tablet 00:00: MOUTH [place] 00 DAILY. [facility] ALLOPURINOL 2021-0 Yes [id number] 300mg TAKE 1 [facility] 300 mg 6-14 TABLET BY [facility]y of tablet 00:00: MOUTH [place] 00 DAILY. [facility] ALLOPURINOL 2021-0 Yes [id number] 300mg TAKE 1 [facility] 300 mg 6-14 TABLET BY ity of tablet 00:00: MOUTH [place] 00 DAILY. [facility] ALLOPURINOL 2021-0 Yes [id number] 300mg TAKE 1 [facility] 300 mg 6-14 TABLET BY ity of tablet 00:00: MOUTH [place] 00 DAILY. [facility] ALLOPURINOL 0 Yes [id number] 300mg TAKE 1 [facility] 300 mg 6-14 TABLET BY ity of tablet 00:00: MOUTH [place] 00 DAILY. [facility] ALLOPURINOL 2021-0 Yes [id number] 300mg TAKE 1 [facility] 300 mg 6-14 TABLET BY ity of tablet 00:00: MOUTH [place] 00 DAILY. [facility] ALLOPURINOL 0 Yes [id number] 300mg TAKE 1 [facility] 300 mg 6-14 TABLET BY ity of tablet 00:00: MOUTH [place] 00 DAILY. [facility] ALLOPURINOL 2021-0 Yes [id number] 300mg TAKE 1 [facility] 300 mg 6-14 TABLET BY it[facility] of tablet 00:00: MOUTH [place] 00 DAILY. [facility] ALLOPURINOL 2021-0 Yes [id number] 300mg TAKE 1 [facility] 300 mg 6-14 TABLET BY it[facility] of tablet 00:00: MOUTH [place] 00 DAILY. [facility] ALLOPURINOL 2021-0 Yes [id number] 300mg TAKE 1 [facility] 300 mg 6-14 TABLET BY ity of tablet 00:00: MOUTH [place] 00 DAILY. [facility] ALLOPURINOL 2021-0 Yes [id number] 300mg TAKE 1 [facility] 300 mg 6-14 TABLET BY [facility]y of tablet 00:00: MOUTH [place] 00 DAILY. [facility] ALLOPURINOL 2021-0 Yes [id number] 300mg TAKE 1 [facility] 300 mg 6-14 TABLET BY ity of tablet 00:00: MOUTH [place] 00 DAILY. [facility] ALLOPURINOL 2021-0 Yes [id number] 300mg TAKE 1 [facility] 300 mg 6-14 TABLET BY ity of tablet 00:00: MOUTH [place] 00 DAILY. [facility] ALLOPURINOL 2021-0 Yes [id number] 300mg TAKE 1 [facility] 300 mg 6-14 TABLET BY [facility]y of tablet 00:00: MOUTH [place] 00 DAILY. [facility] ALLOPURINOL 2021-0 Yes [id number] 300mg TAKE 1 [facility] 300 mg 6-14 TABLET BY it[facility] of tablet 00:00: MOUTH [place] 00 DAILY. [facility] ALLOPURINOL 2021-0 Yes [id number] 300mg TAKE 1 [facility] 300 mg 6-14 TABLET BY ity of tablet 00:00: MOUTH [place] 00 DAILY. [facility] ALLOPURINOL 2021-0 Yes [id number] 300mg TAKE 1 [facility] 300 mg 6-14 TABLET BY ity of tablet 00:00: MOUTH [place] 00 DAILY. [facility] ALLOPURINOL 0 Yes [id number] 300mg TAKE 1 [facility] 300 mg 6-14 TABLET BY ity of tablet 00:00: MOUTH [place] 00 DAILY. [facility] ALLOPURINOL 0 Yes [id number] 300mg TAKE 1 [facility] 300 mg 6-14 TABLET BY ity of tablet 00:00: MOUTH [place] 00 DAILY. [facility] ALLOPURINOL 0 Yes [id number] 300mg TAKE 1 [facility] 300 mg 6-14 TABLET BY ity of tablet 00:00: MOUTH [place] 00 DAILY. [facility] ALLOPURINOL 0 Yes [id number] 300mg TAKE 1 [facility] 300 mg 6-14 TABLET BY ity of tablet 00:00: MOUTH [place] 00 DAILY. [facility] ALLOPURINOL 2021-0 Yes [id number] 300mg TAKE 1 [facility] 300 mg 6-14 TABLET BY ity of tablet 00:00: MOUTH [place] 00 DAILY. [facility] ALLOPURINOL 2021-0 Yes [id number] 300mg TAKE 1 [facility] 300 mg 6-14 TABLET BY [facility] of tablet 00:00: MOUTH [place] 00 DAILY. [facility] ALLOPURINOL 2021-0 Yes [id number] 300mg TAKE 1 [facility] 300 mg 6-14 TABLET BY it[facility] of tablet 00:00: MOUTH [place] 00 DAILY. [facility] ALLOPURINOL 2021-0 Yes [id number] 300mg TAKE 1 [facility] 300 mg 6-14 TABLET BY [facility] of tablet 00:00: MOUTH [place] 00 DAILY. [facility] ALLOPURINOL 2021-0 Yes [id number] 300mg TAKE 1 [facility] 300 mg 6-14 TABLET BY [facility] of tablet 00:00: MOUTH [place] 00 DAILY. [facility] ALLOPURINOL 2021-0 Yes [id number] 300mg TAKE 1 [facility] 300 mg 6-14 TABLET BY it[facility] of tablet 00:00: MOUTH [place] 00 DAILY. [facility] ALLOPURINOL 2021-0 Yes [id number] 300mg TAKE 1 [facility] 300 mg 6-14 TABLET BY ity of tablet 00:00: MOUTH [place] 00 DAILY. [facility] ALLOPURINOL 2021-0 Yes [id number] 300mg TAKE 1 [facility] 300 mg 6-14 TABLET BY ity of tablet 00:00: MOUTH [place] 00 DAILY. [facility] ALLOPURINOL 2021-0 Yes [id number] 300mg TAKE 1 [facility] 300 mg 6-14 TABLET BY [facility] of tablet 00:00: MOUTH [place] 00 DAILY. [facility] ALLOPURINOL 0 Yes [id number] 300mg TAKE 1 [facility] 300 mg 6-14 TABLET BY ity of tablet 00:00: MOUTH [place] 00 DAILY. [facility] ALLOPURINOL 0 Yes [id number] 300mg TAKE 1 [facility] 300 mg 6-14 TABLET BY ity of tablet 00:00: MOUTH [place] 00 DAILY. [facility] ALLOPURINOL 2021-0 Yes [id number] 300mg TAKE 1 [facility] 300 mg 6-14 TABLET BY it[facility] of tablet 00:00: MOUTH [place] 00 DAILY. [facility] ALLOPURINOL 2021-0 Yes [id number] 300mg TAKE 1 [facility] 300 mg 6-14 TABLET BY [facility]y of tablet 00:00: MOUTH [place] 00 DAILY. [facility] ALLOPURINOL 2021-0 Yes [id number] 300mg TAKE 1 [facility] 300 mg 6-14 TABLET BY ity of tablet 00:00: MOUTH [place] 00 DAILY. [facility] ALLOPURINOL 2021-0 Yes [id number] 300mg TAKE 1 [facility] 300 mg 6-14 TABLET BY ity of tablet 00:00: MOUTH [place] 00 DAILY. [facility] ALLOPURINOL 2021-0 Yes [id number] 300mg TAKE 1 [facility] 300 mg 6-14 TABLET BY ity of tablet 00:00: MOUTH [place] 00 DAILY. [facility] ALLOPURINOL 2021-0 Yes [id number] 300mg TAKE 1 [facility] 300 mg 6-14 TABLET BY ity of tablet 00:00: MOUTH [place] 00 DAILY. [facility] ALLOPURINOL 2021-0 Yes [id number] 300mg TAKE 1 [facility] 300 mg 6-14 TABLET BY ity of tablet 00:00: MOUTH [place] 00 DAILY. [facility] ALLOPURINOL 2021-0 Yes [id number] 300mg TAKE 1 [facility] 300 mg 6-14 TABLET BY ity of tablet 00:00: MOUTH [place] 00 DAILY. [facility] ALLOPURINOL 2021-0 Yes [id number] 300mg TAKE 1 [facility] 300 mg 6-14 TABLET BY ity of tablet 00:00: MOUTH [place] 00 DAILY. [facility] ALLOPURINOL 2021-0 Yes [id number] 300mg TAKE 1 [facility] 300 mg 6-14 TABLET BY ity of tablet 00:00: MOUTH [place] 00 DAILY. [facility] ALLOPURINOL 2021-0 Yes [id number] 300mg TAKE 1 [facility] 300 mg 6-14 TABLET BY ity of tablet 00:00: MOUTH [place] 00 DAILY. [facility] ALLOPURINOL 0 Yes [id number] 300mg TAKE 1 [facility] 300 mg 6-14 TABLET BY ity of tablet 00:00: MOUTH [place] 00 DAILY. [facility] ALLOPURINOL 0 Yes [id number] 300mg TAKE 1 [facility] 300 mg 6-14 TABLET BY ity of tablet 00:00: MOUTH [place] 00 DAILY. [facility] ALLOPURINOL 0 Yes [id number] 300mg TAKE 1 [facility] 300 mg 6-14 TABLET BY ity of tablet 00:00: MOUTH [place] 00 DAILY. [facility] ALLOPURINOL 0 Yes [id number] 300mg TAKE 1 [facility] 300 mg 6-14 TABLET BY ity of tablet 00:00: MOUTH [place] 00 DAILY. [facility] ALLOPURINOL 2021-0 Yes [id number] 300mg TAKE 1 [facility] 300 mg 6-14 TABLET BY ity of tablet 00:00: MOUTH [place] 00 DAILY. [facility] ALLOPURINOL 2021-0 Yes [id number] 300mg TAKE 1 [facility] 300 mg 6-14 TABLET BY ity of tablet 00:00: MOUTH [place] 00 DAILY. [facility] ALLOPURINOL 2021-0 Yes [id number] 300mg TAKE 1 [facility] 300 mg 6-14 TABLET BY ity of tablet 00:00: MOUTH [place] 00 DAILY. [facility] ALLOPURINOL 2021-0 Yes [id number] 300mg TAKE 1 [facility] 300 mg 6-14 TABLET BY ity of tablet 00:00: MOUTH [place] 00 DAILY. [facility] ALLOPURINOL Yes [id number] 300mg TAKE 1 [facility] 300 mg 6-14 TABLET BY ity of tablet 00:00: MOUTH [place] 00 DAILY. [facility] ALLOPURINOL 2022- No [id number] 300mg TAKE 1 [facility] 300 mg 6-14 03-13 TABLET BY ity of tablet 00:00: 00:00 MOUTH [place] 00 :00 DAILY. [facility] ALLOPURINOL 2022- No [id number] 300mg TAKE 1 [facility] 300 mg 6-14 03-13 TABLET BY ity of tablet 00:00: 00:00 MOUTH [place] 00 :00 DAILY. [facility] ALLOPURINOL 2022- No [id number] 300mg TAKE 1 [facility] 300 mg 6-14 03-13 TABLET BY ity of tablet 00:00: 00:00 MOUTH [place] 00 :00 DAILY. [facility] ALLOPURINOL 2022- No [id number] 300mg TAKE 1 [facility] 300 mg 6-14 -13 TABLET BY ity of tablet 00:00: 00:00 MOUTH [place] 00 :00 DAILY. [facility] ALLOPURINOL 2022- No [id number] 300mg TAKE 1 [facility] 300 mg 6-14 -13 TABLET BY it[facility] of tablet 00:00: 00:00 MOUTH [place] 00 :00 DAILY. [facility] ALLOPURINOL 2022- No [id number] 300mg TAKE 1 [facility] 300 mg 6-14 03-13 TABLET BY ity of tablet 00:00: 00:00 MOUTH [place] 00 :00 DAILY. [facility] ALLOPURINOL 2022- No [id number] 300mg TAKE 1 [facility] 300 mg 6-14 -13 TABLET BY ity of tablet 00:00: 00:00 MOUTH [place] 00 :00 DAILY. [facility] ALLOPURINOL 2022- No [id number] 300mg TAKE 1 [facility] 300 mg 6-14 03-13 TABLET BY [facility]y of tablet 00:00: 00:00 MOUTH [place] 00 :00 DAILY. [facility] diltiazem Yes [id number] 120mg Take 1 [facility] XR 120 mg 5-05 capsule by ity of 24 hr 00:00: mouth [place] capsule 00 daily. [facility] diltiazem 0 Yes [id number] 120mg Take 1 [facility] XR 120 mg 5-05 capsule by ity of 24 hr 00:00: mouth [place] capsule 00 daily. [facility] diltiazem 2021-0 Yes [id number] 120mg Take 1 [facility] XR 120 mg 5-05 capsule by ity of 24 hr 00:00: mouth [place] capsule 00 daily. [facility] diltiazem 2021-0 Yes [id number] 120mg Take 1 [facility] XR 120 mg 5-05 capsule by ity of 24 hr 00:00: mouth [place] capsule 00 daily. [facility] diltiazem 2021-0 Yes [id number] 120mg Take 1 [facility] XR 120 mg 5-05 capsule by ity of 24 hr 00:00: mouth [place] capsule 00 daily. [facility] diltiazem 2021-0 Yes [id number] 120mg Take 1 [facility] XR 120 mg 5-05 capsule by ity of 24 hr 00:00: mouth [place] capsule 00 daily. [facility] diltiazem 2021- Yes [id number] 120mg Take 1 [facility] XR 120 mg 5-05 capsule by [facility]y of 24 hr 00:00: mouth [place] capsule 00 daily. [facility] diltiazem Yes [id number] 120mg Take 1 [facility] XR 120 mg 5-05 capsule by ity of 24 hr 00:00: mouth [place] capsule 00 daily. [facility] diltiazem Yes [id number] 120mg Take 1 [facility] XR 120 mg 5-05 capsule by [facility]y of 24 hr 00:00: mouth [place] capsule 00 daily. [facility] diltiazem 2021-0 Yes [id number] 120mg Take 1 [facility] XR 120 mg 5-05 capsule by [facility]y of 24 hr 00:00: mouth [place] capsule 00 daily. [facility] diltiazem Yes [id number] 120mg Take 1 [facility] XR 120 mg 5-05 capsule by [facility] of 24 hr 00:00: mouth [place] capsule 00 daily. [facility] diltiazem 2021-0 Yes [id number] 120mg Take 1 [facility] XR 120 mg 5-05 capsule by [facility]y of 24 hr 00:00: mouth [place] capsule 00 daily. [facility] diltiazem 2021- Yes [id number] 120mg Take 1 [facility] XR 120 mg 5-05 capsule by [facility]y of 24 hr 00:00: mouth [place] capsule 00 daily. [facility] diltiazem 2021-0 Yes [id number] 120mg Take 1 [facility] XR 120 mg 5-05 capsule by ity of 24 hr 00:00: mouth [place] capsule 00 daily. [facility] diltiazem 2021-0 Yes [id number] 120mg Take 1 [facility] XR 120 mg 5-05 capsule by [facility]y of 24 hr 00:00: mouth [place] capsule 00 daily. [facility] diltiazem 2021-0 Yes [id number] 120mg Take 1 [facility] XR 120 mg 5-05 capsule by ity of 24 hr 00:00: mouth [place] capsule 00 daily. [facility] diltiazem 2021-0 Yes [id number] 120mg Take 1 [facility] XR 120 mg 5-05 capsule by [facility]y of 24 hr 00:00: mouth [place] capsule 00 daily. [facility] diltiazem 2021-0 Yes [id number] 120mg Take 1 [facility] XR 120 mg 5-05 capsule by ity of 24 hr 00:00: mouth [place] capsule 00 daily. [facility] diltiazem 2021-0 Yes [id number] 120mg Take 1 [facility] XR 120 mg 5-05 capsule by [facility]y of 24 hr 00:00: mouth [place] capsule 00 daily. [facility] diltiazem 2021- Yes [id number] 120mg Take 1 [facility] XR 120 mg 5-05 capsule by [facility]y of 24 hr 00:00: mouth [place] capsule 00 daily. [facility] diltiazem 2021- Yes [id number] 120mg Take 1 [facility] XR 120 mg 5-05 capsule by [facility]y of 24 hr 00:00: mouth [place] capsule 00 daily. [facility] diltiazem 2021-0 Yes [id number] 120mg Take 1 [facility] XR 120 mg 5-05 capsule by ity of 24 hr 00:00: mouth [place] capsule 00 daily. [facility] diltiazem 2021-0 Yes [id number] 120mg Take 1 [facility] XR 120 mg 5-05 capsule by [facility] of 24 hr 00:00: mouth [place] capsule 00 daily. [facility] diltiazem 2021-0 Yes [id number] 120mg Take 1 [facility] XR 120 mg 5-05 capsule by [facility]y of 24 hr 00:00: mouth [place] capsule 00 daily. [facility] diltiazem 2021-0 Yes [id number] 120mg Take 1 [facility] XR 120 mg 5-05 capsule by [facility]y of 24 hr 00:00: mouth [place] capsule 00 daily. [facility] diltiazem 2021-0 Yes [id number] 120mg Take 1 [facility] XR 120 mg 5-05 capsule by ity of 24 hr 00:00: mouth [place] capsule 00 daily. [facility] diltiazem 2021-0 Yes [id number] 120mg Take 1 [facility] XR 120 mg 5-05 capsule by ity of 24 hr 00:00: mouth [place] capsule 00 daily. [facility] diltiazem 2021-0 Yes [id number] 120mg Take 1 [facility] XR 120 mg 5-05 capsule by ity of 24 hr 00:00: mouth [place] capsule 00 daily. [facility] diltiazem 2021-0 Yes [id number] 120mg Take 1 [facility] XR 120 mg 5-05 capsule by ity of 24 hr 00:00: mouth [place] capsule 00 daily. [facility] diltiazem 2021-0 Yes [id number] 120mg Take 1 [facility] XR 120 mg 5-05 capsule by ity of 24 hr 00:00: mouth [place] capsule 00 daily. [facility] diltiazem 2021-0 Yes [id number] 120mg Take 1 [facility] XR 120 mg 5-05 capsule by ity of 24 hr 00:00: mouth [place] capsule 00 daily. [facility] diltiazem 2021-0 Yes [id number] 120mg Take 1 [facility] XR 120 mg 5-05 capsule by ity of 24 hr 00:00: mouth [place] capsule 00 daily. [facility] diltiazem 2021-0 Yes [id number] 120mg Take 1 [facility] XR 120 mg 5-05 capsule by ity of 24 hr 00:00: mouth [place] capsule 00 daily. [facility] diltiazem 2021-0 Yes [id number] 120mg Take 1 [facility] XR 120 mg 5-05 capsule by ity of 24 hr 00:00: mouth [place] capsule 00 daily. [facility] diltiazem 2021-0 2021- No [id number] 120mg Take 1 [facility] XR 120 mg 5-05 12-29 capsule by ity of 24 hr 00:00: 00:00 mouth [place] capsule 00 :00 daily. [facility] diltiazem 2- No [id number] 120mg Take 1 [facility] XR 120 mg 5-05 12-29 capsule by ity of 24 hr 00:00: 00:00 mouth [place] capsule 00 :00 daily. [facility] diltiazem 2021-2021- No [id number] 120mg Take 1 [facility] XR 120 mg 10-25 capsule by ity of 24 hr 00:00: 00:00 mouth [place] capsule 00 :00 daily. [facility] diltiazem 2021-2021- No [id number] 120mg Take 1 [facility] XR 120 mg 10-25 capsule by ity of 24 hr 00:00: 00:00 mouth [place] capsule 00 :00 daily. [facility] diltiazem 2021- No [id number] 120mg Take 1 [facility] XR 120 mg -06-20 capsule by ity of 24 hr 00:00: 00:00 mouth [place] capsule 00 :00 daily. [facility] atorvastati 0 Yes 40mg Take 1 [facility] ers n (LIPITOR) 5-03 tablet by ity of 40 mg 00:00: mouth at [place] tablet 00 bedtime. [facility] atorvastati 2021-0 Yes 40mg Take 1 [facility] ers n (LIPITOR) 5-03 tablet by ity of 40 mg 00:00: mouth at [place] tablet 00 bedtime. [facility] atorvastati 0 Yes 40mg Take 1 [facility] ers n (LIPITOR) 5-03 tablet by ity of 40 mg 00:00: mouth at [place] tablet 00 bedtime. [facility] atorvastati 0 Yes 40mg Take 1 [facility] ers n (LIPITOR) 5-03 tablet by ity of 40 mg 00:00: mouth at [place] tablet 00 bedtime. [facility] atorvastati 2021-0 Yes 40mg Take 1 [facility] ers n (LIPITOR) 5-03 tablet by ity of 40 mg 00:00: mouth at [place] tablet 00 bedtime. [facility] atorvastati 2021-0 Yes 40mg Take 1 [facility] ers n (LIPITOR) 5-03 tablet by ity of 40 mg 00:00: mouth at [place] tablet 00 bedtime. [facility] atorvastati 2021-0 Yes 40mg Take 1 [facility] ers n (LIPITOR) 5-03 tablet by ity of 40 mg 00:00: mouth at [place] tablet 00 bedtime. [facility] atorvastati 2021-0 Yes 40mg Take 1 [facility] ers n (LIPITOR) 5-03 tablet by ity of 40 mg 00:00: mouth at [place] tablet 00 bedtime. [facility] atorvastati 0 Yes 40mg Take 1 [facility] ers n (LIPITOR) 5-03 tablet by ity of 40 mg 00:00: mouth at [place] tablet 00 bedtime. [facility] atorvastati 0 Yes 40mg Take 1 [facility] ers n (LIPITOR) 5-03 tablet by ity of 40 mg 00:00: mouth at [place] tablet 00 bedtime. [facility] atorvastati 0 Yes 40mg Take 1 [facility] ers n (LIPITOR) 5-03 tablet by ity of 40 mg 00:00: mouth at [place] tablet 00 bedtime. [facility] atorvastati 0 Yes 40mg Take 1 [facility] ers n (LIPITOR) 5-03 tablet by ity of 40 mg 00:00: mouth at [place] tablet 00 bedtime. [facility] atorvastati 0 Yes 40mg Take 1 [facility] ers n (LIPITOR) 5-03 tablet by ity of 40 mg 00:00: mouth at [place] tablet 00 bedtime. [facility] atorvastati 0 Yes 40mg Take 1 [facility] ers n (LIPITOR) 5-03 tablet by ity of 40 mg 00:00: mouth at [place] tablet 00 bedtime. [facility] atorvastati 0 Yes 40mg Take 1 [facility] ers n (LIPITOR) 5-03 tablet by ity of 40 mg 00:00: mouth at [place] tablet 00 bedtime. [facility] atorvastati 0 Yes 40mg Take 1 [facility] ers n (LIPITOR) 5-03 tablet by ity of 40 mg 00:00: mouth at [place] tablet 00 bedtime. [facility] atorvastati 2021-0 2021- No 40mg Take 1 [facility] vers n (LIPITOR) 5-03 10-31 tablet by it y of 40 mg 00:00: 00:00 mouth at [place] tablet 00 :00 bedtime. [facility] atorvastati 2021-0 2021- No 40mg Take 1 [facility] vers n (LIPITOR) 5-03 10-31 tablet by it y of 40 mg 00:00: 00:00 mouth at [place] tablet 00 :00 bedtime. [facility] atorvastati 2021-0 2022- No 40mg Take 1 [facility] vers n (LIPITOR) 5-03 10-31 tablet by it y of 40 mg 00:00: 00:00 mouth at [place] tablet 00 :00 bedtime. [facility] metOLazone 0 Yes [id number] 2.5mg Take 1 [facility] 2.5 mg 3-31 tablet by ity of tablet 00:00: mouth as [place] 00 needed Medical (for Branch edema). metOLazone 0 Yes [id number] 2.5mg Take 1 [facility] 2.5 mg 3-31 tablet by ity of tablet 00:00: mouth as [place] 00 needed Medical (for Branch edema). metOLazone 0 Yes [id number] 2.5mg Take 1 [facility] 2.5 mg 3-31 tablet by ity of tablet 00:00: mouth as [place] 00 needed Medical (for Branch edema). metOLazone 0 Yes [id number] 2.5mg Take 1 [facility] 2.5 mg 3-31 tablet by ity of tablet 00:00: mouth as [place] 00 needed Medical (for Branch edema). metOLazone 0 Yes [id number] 2.5mg Take 1 [facility] 2.5 mg 3-31 tablet by ity of tablet 00:00: mouth as [place] 00 needed Medical (for Branch edema). metOLazone 0 Yes [id number] 2.5mg Take 1 [facility] 2.5 mg 3-31 tablet by ity of tablet 00:00: mouth as [place] 00 needed Medical (for Branch edema). metOLazone 0 Yes [id number] 2.5mg Take 1 [facility] 2.5 mg 3-31 tablet by ity of tablet 00:00: mouth as [place] 00 needed Medical (for Branch edema). metOLazone 0 Yes [id number] 2.5mg Take 1 [facility] 2.5 mg 3-31 tablet by ity of tablet 00:00: mouth as [place] 00 needed Medical (for Branch edema). metOLazone 2021-0 Yes [id number] 2.5mg Take 1 [facility] 2.5 mg 3-31 tablet by ity of tablet 00:00: mouth as [place] 00 needed Medical (for Branch edema). metOLazone 2021-0 Yes [id number] 2.5mg Take 1 [facility] 2.5 mg 3-31 tablet by ity of tablet 00:00: mouth as [place] 00 needed Medical (for Branch edema). metOLazone 2-0 Yes [id number] 2.5mg Take 1 [facility] 2.5 mg 3-31 tablet by ity of tablet 00:00: mouth as [place] 00 needed Medical (for Branch edema). metOLazone 2-0 Yes [id number] 2.5mg Take 1 [facility] 2.5 mg 3-31 tablet by ity of tablet 00:00: mouth as [place] 00 needed Medical (for Branch edema). metOLazone 2021-0 Yes [id number] 2.5mg Take 1 [facility] 2.5 mg 3-31 tablet by ity of tablet 00:00: mouth as [place] 00 needed Medical (for Branch edema). metOLazone 2021-0 Yes [id number] 2.5mg Take 1 [facility] 2.5 mg 3-31 tablet by ity of tablet 00:00: mouth as [place] 00 needed Medical (for Branch edema). metOLazone 2021-0 Yes [id number] 2.5mg Take 1 [facility] 2.5 mg 3-31 tablet by ity of tablet 00:00: mouth as [place] 00 needed Medical (for Branch edema). metOLazone 2021-0 Yes [id number] 2.5mg Take 1 [facility] 2.5 mg 3-31 tablet by ity of tablet 00:00: mouth as [place] 00 needed Medical (for Branch edema). metOLazone 2021-0 Yes [id number] 2.5mg Take 1 [facility] 2.5 mg 3-31 tablet by ity of tablet 00:00: mouth as [place] 00 needed Medical (for Branch edema). metOLazone 2021-0 Yes [id number] 2.5mg Take 1 [facility] 2.5 mg 3-31 tablet by ity of tablet 00:00: mouth as [place] 00 needed Medical (for Branch edema). metOLazone 2022-0 Yes [id number] 2.5mg Take 1 [facility] 2.5 mg 3-31 tablet by ity of tablet 00:00: mouth as [place] 00 needed Medical (for Branch edema). metOLazone 2-0 Yes [id number] 2.5mg Take 1 [facility] 2.5 mg 3-31 tablet by ity of tablet 00:00: mouth as [place] 00 needed Medical (for Branch edema). metOLazone 2-0 Yes [id number] 2.5mg Take 1 [facility] 2.5 mg 3-31 tablet by ity of tablet 00:00: mouth as [place] 00 needed Medical (for Branch edema). metOLazone 2-0 Yes [id number] 2.5mg Take 1 [facility] 2.5 mg 3-31 tablet by ity of tablet 00:00: mouth as [place] 00 needed Medical (for Branch edema). metOLazone 2021-0 Yes [id number] 2.5mg Take 1 [facility] 2.5 mg 3-31 tablet by ity of tablet 00:00: mouth as [place] 00 needed Medical (for Branch edema). metOLazone 2021-0 Yes [id number] 2.5mg Take 1 [facility] 2.5 mg 3-31 tablet by ity of tablet 00:00: mouth as [place] 00 needed Medical (for Branch edema). metOLazone 2021-0 Yes [id number] 2.5mg Take 1 [facility] 2.5 mg 3-31 tablet by ity of tablet 00:00: mouth as [place] 00 needed Medical (for Branch edema). metOLazone 2021-0 Yes [id number] 2.5mg Take 1 [facility] 2.5 mg 3-31 tablet by ity of tablet 00:00: mouth as [place] 00 needed Medical (for Branch edema). metOLazone 2-0 Yes [id number] 2.5mg Take 1 [facility] 2.5 mg 3-31 tablet by ity of tablet 00:00: mouth as [place] 00 needed Medical (for Branch edema). metOLazone 2-0 Yes [id number] 2.5mg Take 1 [facility] 2.5 mg 3-31 tablet by ity of tablet 00:00: mouth as [place] 00 needed Medical (for Branch edema). metOLazone 2022-0 Yes [id number] 2.5mg Take 1 [facility] 2.5 mg 3-31 tablet by ity of tablet 00:00: mouth as [place] 00 needed Medical (for Branch edema). metOLazone 2-0 Yes [id number] 2.5mg Take 1 [facility] 2.5 mg 3-31 tablet by ity of tablet 00:00: mouth as [place] 00 needed Medical (for Branch edema). metOLazone 2022-0 Yes [id number] 2.5mg Take 1 [facility] 2.5 mg 3-31 tablet by ity of tablet 00:00: mouth as [place] 00 needed Medical (for Branch edema). metOLazone 2022-0 Yes [id number] 2.5mg Take 1 [facility] 2.5 mg 3-31 tablet by ity of tablet 00:00: mouth as [place] 00 needed Medical (for Branch edema). metOLazone 2022-0 Yes [id number] 2.5mg Take 1 [facility] 2.5 mg 3-31 tablet by ity of tablet 00:00: mouth as [place] 00 needed Medical (for Branch edema). metOLazone 2-0 Yes [id number] 2.5mg Take 1 [facility] 2.5 mg 3-31 tablet by ity of tablet 00:00: mouth as [place] 00 needed Medical (for Branch edema). metOLazone 2021-0 Yes [id number] 2.5mg Take 1 [facility] 2.5 mg 3-31 tablet by ity of tablet 00:00: mouth as [place] 00 needed Medical (for Branch edema). metOLazone 2-0 Yes [id number] 2.5mg Take 1 [facility] 2.5 mg 3-31 tablet by ity of tablet 00:00: mouth as [place] 00 needed Medical (for Branch edema). metOLazone 2-0 Yes [id number] 2.5mg Take 1 [facility] 2.5 mg 3-31 tablet by ity of tablet 00:00: mouth as [place] 00 needed Medical (for Branch edema). metOLazone 2022-0 Yes [id number] 2.5mg Take 1 [facility] 2.5 mg 3-31 tablet by ity of tablet 00:00: mouth as [place] 00 needed Medical (for Branch edema). metOLazone 2022-0 Yes [id number] 2.5mg Take 1 [facility] 2.5 mg 3-31 tablet by ity of tablet 00:00: mouth as [place] 00 needed Medical (for Branch edema). metOLazone 2022-0 Yes [id number] 2.5mg Take 1 [facility] 2.5 mg 3-31 tablet by ity of tablet 00:00: mouth as [place] 00 needed Medical (for Branch edema). metOLazone 2021-0 Yes [id number] 2.5mg Take 1 [facility] 2.5 mg 3-31 tablet by ity of tablet 00:00: mouth as [place] 00 needed Medical (for Branch edema). metOLazone 2021-0 Yes [id number] 2.5mg Take 1 [facility] 2.5 mg 3-31 tablet by ity of tablet 00:00: mouth as [place] 00 needed Medical (for Branch edema). metOLazone 2021-0 Yes [id number] 2.5mg Take 1 [facility] 2.5 mg 3-31 tablet by ity of tablet 00:00: mouth as [place] 00 needed Medical (for Branch edema). metOLazone 2021-0 Yes [id number] 2.5mg Take 1 [facility] 2.5 mg 3-31 tablet by [facility] tablet 00:00: mouth as [place] 00 needed Medical (for Branch edema). metOLazone 0 Yes [id number] 2.5mg Take 1 [facility] 2.5 mg 3-31 tablet by [facility] tablet 00:00: mouth as [place] 00 needed Medical (for Branch edema). metOLazone 0 Yes [id number] 2.5mg Take 1 [facility] 2.5 mg 3-31 tablet by [facility] tablet 00:00: mouth as [place] 00 needed Medical (for Branch edema). metOLazone 2021-0 Yes [id number] 2.5mg Take 1 [facility] 2.5 mg 3-31 tablet by [facility] tablet 00:00: mouth as [place] 00 needed Medical (for Branch edema). metOLazone 2021-0 Yes [id number] 2.5mg Take 1 [facility] 2.5 mg 3-31 tablet by [facility] tablet 00:00: mouth as [place] 00 needed Medical (for Branch edema). metOLazone 2021-0 Yes [id number] 2.5mg Take 1 [facility] 2.5 mg 3-31 tablet by [facility] tablet 00:00: mouth as [place] 00 needed Medical (for Branch edema). metOLazone 2021-0 Yes [id number] 2.5mg Take 1 [facility] 2.5 mg 3-31 tablet by [facility] tablet 00:00: mouth as [place] 00 needed Medical (for Branch edema). metOLazone 2021-0 Yes [id number] 2.5mg Take 1 [facility] 2.5 mg 3-31 tablet by [facility] tablet 00:00: mouth as [place] 00 needed Medical (for Branch edema). metOLazone 2021-0 Yes [id number] 2.5mg Take 1 [facility] 2.5 mg 3-31 tablet by [facility] tablet 00:00: mouth as [place] 00 needed Medical (for Branch edema). metOLazone 2021-0 Yes [id number] 2.5mg Take 1 [facility] 2.5 mg 3-31 tablet by [facility] tablet 00:00: mouth as [place] 00 needed Medical (for Branch edema). metOLazone 2021-0 Yes [id number] 2.5mg Take 1 [facility] 2.5 mg 3-31 tablet by [facility] tablet 00:00: mouth as [place] 00 needed Medical (for Branch edema). metOLazone 2021-0 Yes [id number] 2.5mg Take 1 [facility] 2.5 mg 3-31 tablet by [facility] tablet 00:00: mouth as [place] 00 needed Medical (for Branch edema). metOLazone 2021-0 Yes [id number] 2.5mg Take 1 [facility] 2.5 mg 3-31 tablet by [facility] tablet 00:00: mouth as [place] 00 needed Medical (for Branch edema). metOLazone 2021-0 Yes [id number] 2.5mg Take 1 [facility] 2.5 mg 3-31 tablet by [facility] tablet 00:00: mouth as [place] 00 needed Medical (for Branch edema). metOLazone 2021-0 Yes [id number] 2.5mg Take 1 [facility] 2.5 mg 3-31 tablet by [facility] tablet 00:00: mouth as [place] 00 needed Medical (for Branch edema). metOLazone 2021-0 Yes [id number] 2.5mg Take 1 [facility] 2.5 mg 3-31 tablet by [facility] tablet 00:00: mouth as [place] 00 needed Medical (for Branch edema). metOLazone 2021-0 Yes [id number] 2.5mg Take 1 [facility] 2.5 mg 3-31 tablet by [facility] tablet 00:00: mouth as [place] 00 needed Medical (for Branch edema). metOLazone 2021-0 Yes [id number] 2.5mg Take 1 [facility] 2.5 mg 3-31 tablet by [facility] tablet 00:00: mouth as [place] 00 needed Medical (for Branch edema). metOLazone 2-0 Yes [id number] 2.5mg Take 1 [facility] 2.5 mg 3-31 tablet by [facility] tablet 00:00: mouth as [place] 00 needed Medical (for Branch edema). metOLazone 2-0 Yes [id number] 2.5mg Take 1 [facility] 2.5 mg 3-31 tablet by [facility] tablet 00:00: mouth as [place] 00 needed Medical (for Branch edema). metOLazone 2021-0 Yes [id number] 2.5mg Take 1 [facility] 2.5 mg 3-31 tablet by [facility] tablet 00:00: mouth as [place] 00 needed Medical (for Branch edema). metOLazone 2021-0 Yes [id number] 2.5mg Take 1 [facility] 2.5 mg 3-31 tablet by [facility] tablet 00:00: mouth as [place] 00 needed Medical (for Branch edema). metOLazone 2021-0 Yes [id number] 2.5mg Take 1 [facility] 2.5 mg 3-31 tablet by [facility] tablet 00:00: mouth as [place] 00 needed Medical (for Branch edema). metOLazone 2021-0 Yes [id number] 2.5mg Take 1 [facility] 2.5 mg 3-31 tablet by [facility] tablet 00:00: mouth as [place] 00 needed Medical (for Branch edema). metOLazone 2-0 Yes [id number] 2.5mg Take 1 [facility] 2.5 mg 3-31 tablet by [facility] tablet 00:00: mouth as [place] 00 needed Medical (for Branch edema). metOLazone 2021-0 Yes [id number] 2.5mg Take 1 [facility] 2.5 mg 3-31 tablet by [facility] tablet 00:00: mouth as [place] 00 needed Medical (for Branch edema). metOLazone 2022-0 Yes [id number] 2.5mg Take 1 [facility] 2.5 mg 3-31 tablet by [facility] tablet 00:00: mouth as [place] 00 needed Medical (for Branch edema). metOLazone 2-0 Yes [id number] 2.5mg Take 1 [facility] 2.5 mg 3-31 tablet by [facility] tablet 00:00: mouth as [place] 00 needed Medical (for Branch edema). metOLazone 2-0 Yes [id number] 2.5mg Take 1 [facility] 2.5 mg 3-31 tablet by [facility] tablet 00:00: mouth as [place] 00 needed Medical (for Branch edema). metOLazone 2-0 Yes [id number] 2.5mg Take 1 [facility] 2.5 mg 3-31 tablet by [facility] tablet 00:00: mouth as [place] 00 needed Medical (for Branch edema). metOLazone 2-0 Yes [id number] 2.5mg Take 1 [facility] 2.5 mg 3-31 tablet by [facility] tablet 00:00: mouth as [place] 00 needed Medical (for Branch edema). metOLazone 2-0 Yes [id number] 2.5mg Take 1 [facility] 2.5 mg 3-31 tablet by [facility] tablet 00:00: mouth as [place] 00 needed Medical (for Branch edema). metOLazone 2021-0 Yes [id number] 2.5mg Take 1 [facility] 2.5 mg 3-31 tablet by [facility] tablet 00:00: mouth as [place] 00 needed Medical (for Branch edema). metOLazone 2-0 Yes [id number] 2.5mg Take 1 [facility] 2.5 mg 3-31 tablet by [facility] tablet 00:00: mouth as [place] 00 needed Medical (for Branch edema). metOLazone 2-0 Yes [id number] 2.5mg Take 1 [facility] 2.5 mg 3-31 tablet by [facility] tablet 00:00: mouth as [place] 00 needed Medical (for Branch edema). metOLazone 2-0 Yes [id number] 2.5mg Take 1 [facility] 2.5 mg 3-31 tablet by [facility] tablet 00:00: mouth as [place] 00 needed Medical (for Branch edema). metOLazone 2022-0 Yes [id number] 2.5mg Take 1 [facility] 2.5 mg 3-31 tablet by [facility] tablet 00:00: mouth as [place] 00 needed Medical (for Branch edema). metOLazone 2-0 Yes [id number] 2.5mg Take 1 [facility] 2.5 mg 3-31 tablet by [facility] tablet 00:00: mouth as [place] 00 needed Medical (for Branch edema). metOLazone 2021-0 Yes [id number] 2.5mg Take 1 [facility] 2.5 mg 3-31 tablet by [facility] tablet 00:00: mouth as [place] 00 needed Medical (for Branch edema). metOLazone 2021-0 Yes [id number] 2.5mg Take 1 [facility] 2.5 mg 3-31 tablet by [facility] tablet 00:00: mouth as [place] 00 needed Medical (for Branch edema). metOLazone 2021-0 Yes [id number] 2.5mg Take 1 [facility] 2.5 mg 3-31 tablet by [facility] tablet 00:00: mouth as [place] 00 needed Medical (for Branch edema). metOLazone 2021-0 Yes [id number] 2.5mg Take 1 [facility] 2.5 mg 3-31 tablet by [facility] tablet 00:00: mouth as [place] 00 needed Medical (for Branch edema). metOLazone 2021-0 Yes [id number] 2.5mg Take 1 [facility] 2.5 mg 3-31 tablet by [facility] tablet 00:00: mouth as [place] 00 needed Medical (for Branch edema). metOLazone 2021-0 Yes [id number] 2.5mg Take 1 [facility] 2.5 mg 3-31 tablet by [facility] tablet 00:00: mouth as [place] 00 needed Medical (for Branch edema). metOLazone 2021-0 Yes [id number] 2.5mg Take 1 [facility] 2.5 mg 3-31 tablet by [facility] tablet 00:00: mouth as [place] 00 needed Medical (for Branch edema). metOLazone 2021-0 Yes [id number] 2.5mg Take 1 [facility] 2.5 mg 3-31 tablet by [facility] tablet 00:00: mouth as [place] 00 needed Medical (for Branch edema). metOLazone 2-0 Yes [id number] 2.5mg Take 1 [facility] 2.5 mg 3-31 tablet by [facility] tablet 00:00: mouth as [place] 00 needed Medical (for Branch edema). metOLazone 2-0 Yes [id number] 2.5mg Take 1 [facility] 2.5 mg 3-31 tablet by [facility] tablet 00:00: mouth as [place] 00 needed Medical (for Branch edema). metOLazone 2022-0 Yes [id number] 2.5mg Take 1 [facility] 2.5 mg 3-31 tablet by [facility] tablet 00:00: mouth as [place] 00 needed Medical (for Branch edema). metOLazone 2021-0 Yes [id number] 2.5mg Take 1 [facility] 2.5 mg 3-31 tablet by [facility] tablet 00:00: mouth as [place] 00 needed Medical (for Branch edema). metOLazone 2021-0 Yes [id number] 2.5mg Take 1 [facility] 2.5 mg 3-31 tablet by [facility] tablet 00:00: mouth as [place] 00 needed Medical (for Branch edema). metOLazone 0 Yes [id number] 2.5mg Take 1 [facility] 2.5 mg 3-31 tablet by [facility] tablet 00:00: mouth as [place] 00 needed Medical (for Branch edema). metOLazone 0 Yes [id number] 2.5mg Take 1 [facility] 2.5 mg 3-31 tablet by [facility] tablet 00:00: mouth as [place] 00 needed Medical (for Branch edema). metOLazone 0 Yes [id number] 2.5mg Take 1 [facility] 2.5 mg 3-31 tablet by [facility] tablet 00:00: mouth as [place] 00 needed Medical (for Branch edema). metOLazone 2021-0 Yes [id number] 2.5mg Take 1 [facility] 2.5 mg 3-31 tablet by [facility] tablet 00:00: mouth as [place] 00 needed Medical (for Branch edema). metOLazone 2021-0 Yes [id number] 2.5mg Take 1 [facility] 2.5 mg 3-31 tablet by [facility] tablet 00:00: mouth as [place] 00 needed Medical (for Branch edema). metOLazone 2021-0 Yes [id number] 2.5mg Take 1 [facility] 2.5 mg 3-31 tablet by [facility] tablet 00:00: mouth as [place] 00 needed Medical (for Branch edema). metOLazone 2021-0 Yes [id number] 2.5mg Take 1 [facility] 2.5 mg 3-31 tablet by [facility] tablet 00:00: mouth as [place] 00 needed Medical (for Branch edema). metOLazone 2022-0 Yes [id number] 2.5mg Take 1 [facility] 2.5 mg 3-31 tablet by [facility] of tablet 00:00: mouth as [place] 00 needed Medical (for Branch edema). metOLazone Yes [id number] 2.5mg Take 1 [facility] 2.5 mg 3-31 tablet by [facility] of tablet 00:00: mouth as [place] 00 needed Medical (for Branch edema). rivaroxaban Yes 1291 20mg Take 1 [facility] [...] s: a clot in the lung rivaroxaban 0 Yes 1291 20mg Take 1 [facility] ers (XARELTO) 3-18 tablet by ity o f 20 mg 00:00: mouth [place] tablet 00 daily. Medical Indication Branch s: a clot in the lung rivaroxaban 2021-0 Yes 1291 20mg Take 1 [facility] ers (XARELTO) 3-18 tablet by ity o f 20 mg 00:00: mouth [place] tablet 00 daily. Medical Indication Branch s: a clot in the lung rivaroxaban 2021-0 Yes 1291 20mg Take 1 [facility] ers (XARELTO) 3-18 tablet by ity o f 20 mg 00:00: mouth [place] tablet 00 daily. Medical Indication Branch s: a clot in the lung rivaroxaban 2021-0 Yes 1291 20mg Take 1 [facility] ers (XARELTO) 3-18 tablet by ity o f 20 mg 00:00: mouth [place] tablet 00 daily. Medical Indication Branch s: a clot in the lung rivaroxaban 2021-0 Yes 1291 20mg Take 1 [facility] ers (XARELTO) 3-18 tablet by ity o f 20 mg 00:00: mouth [place] tablet 00 daily. Medical Indication Branch s: a clot in the lung rivaroxaban 2021-0 Yes 1291 20mg Take 1 [facility] ers (XARELTO) 3-18 tablet by ity o f 20 mg 00:00: mouth [place] tablet 00 daily. Medical Indication Branch s: a clot in the lung rivaroxaban 0 Yes 1291 20mg Take 1 [facility] ers (XARELTO) 3-18 tablet by ity o f 20 mg 00:00: mouth [place] tablet 00 daily. Medical Indication Branch s: a clot in the lung rivaroxaban 0 Yes 1291 20mg Take 1 [facility] ers (XARELTO) 3-18 tablet by ity o f 20 mg 00:00: mouth [place] tablet 00 daily. Medical Indication Branch s: a clot in the lung rivaroxaban 2021-0 Yes 1291 20mg Take 1 [facility] ers (XARELTO) 3-18 tablet by ity o f 20 mg 00:00: mouth [place] tablet 00 daily. Medical Indication Branch s: a clot in the lung rivaroxaban 2021-0 Yes 1291 20mg Take 1 [facility] ers (XARELTO) 3-18 tablet by ity o f 20 mg 00:00: mouth [place] tablet 00 daily. Medical Indication Branch s: a clot in the lung rivaroxaban 2021-0 Yes 1291 20mg Take 1 [facility] ers (XARELTO) 3-18 tablet by ity o f 20 mg 00:00: mouth [place] tablet 00 daily. Medical Indication Branch s: a clot in the lung rivaroxaban 2021-0 Yes 1291 20mg Take 1 [facility] ers (XARELTO) 3-18 tablet by ity o f 20 mg 00:00: mouth [place] tablet 00 daily. Medical Indication Branch s: a clot in the lung rivaroxaban 2021-0 Yes 1291 20mg Take 1 [facility] ers (XARELTO) 3-18 tablet by ity o f 20 mg 00:00: mouth [place] tablet 00 daily. Medical Indication Branch s: a clot in the lung rivaroxaban 2021-0 Yes 1291 20mg Take 1 [facility] ers (XARELTO) 3-18 tablet by ity o f 20 mg 00:00: mouth [place] tablet 00 daily. Medical Indication Branch s: a clot in the lung rivaroxaban 2021-0 Yes 1291 20mg Take 1 [facility] ers (XARELTO) 3-18 tablet by ity o f 20 mg 00:00: mouth [place] tablet 00 daily. Medical Indication Branch s: a clot in the lung rivaroxaban 2021-0 Yes 1291 20mg Take 1 [facility] ers (XARELTO) 3-18 tablet by ity o f 20 mg 00:00: mouth [place] tablet 00 daily. Medical Indication Branch s: a clot in the lung rivaroxaban 2021-0 Yes 1291 20mg Take 1 [facility] ers (XARELTO) 3-18 tablet by ity o f 20 mg 00:00: mouth [place] tablet 00 daily. Medical Indication Branch s: a clot in the lung rivaroxaban 2021-0 Yes 1291 20mg Take 1 [facility] ers (XARELTO) 3-18 tablet by ity o f 20 mg 00:00: mouth [place] tablet 00 daily. Medical Indication Branch s: a clot in the lung rivaroxaban 2021-0 Yes 1291 20mg Take 1 [facility] ers (XARELTO) 3-18 tablet by ity o f 20 mg 00:00: mouth [place] tablet 00 daily. Medical Indication Branch s: a clot in the lung rivaroxaban 2021-0 Yes 1291 20mg Take 1 [facility] ers (XARELTO) 3-18 tablet by ity o f 20 mg 00:00: mouth [place] tablet 00 daily. Medical Indication Branch s: a clot in the lung rivaroxaban 2-0 Yes 1291 20mg Take 1 [facility] ers (XARELTO) 3-18 tablet by ity o f 20 mg 00:00: mouth [place] tablet 00 daily. Medical Indication Branch s: a clot in the lung rivaroxaban 2022-0 Yes 1291 20mg Take 1 [facility] ers (XARELTO) 3-18 tablet by ity o f 20 mg 00:00: mouth [place] tablet 00 daily. Medical Indication Branch s: a clot in the lung rivaroxaban 0 Yes 1291 20mg Take 1 [facility] ers (XARELTO) 3-18 tablet by ity o f 20 mg 00:00: mouth [place] tablet 00 daily. Medical Indication Branch s: a clot in the lung rivaroxaban 0 Yes 1291 20mg Take 1 [...] s: a clot in the lung rivaroxaban 0 2021- No 1291 20mg Take 1 [facility] vers (XARELTO) 3-18 12-29 tablet by [facility] of 20 mg 00:00: 00:00 mouth [place] tablet 00 :00 daily. Medical Indication Branch s: a clot in the lung rivaroxaban 2021-0 2021- No 1291 20mg Take 1 [facility] vers (XARELTO) 3-18 12-29 tablet by [facility] of 20 mg 00:00: 00:00 mouth [place] tablet 00 :00 daily. Medical Indication Branch s: a clot in the lung rivaroxaban 2021-0 2021- No 1291 20mg Take 1 [facility] vers (XARELTO) 3-18 12-29 tablet by [facility] of 20 mg 00:00: 00:00 mouth [place] tablet 00 :00 daily. Medical Indication Branch s: a clot in the lung rivaroxaban 2021- No 1291 20mg Take 1 [facility] (XARELTO) 3-18 12-29 tablet by [facility] of 20 mg 00:00: 00:00 mouth [place] tablet 00 :00 daily. Medical Indication Branch s: a clot in the lung rivaroxaban 2021- No 1291 20mg Take 1 [facility] vers (XARELTO) 3-18 12-29 tablet by [facility] of 20 mg 00:00: 00:00 mouth [place] tablet 00 :00 daily. Medical Indication Branch s: a clot in the lung dulaglutide Yes [id number] 3mg Inject 3 [facility] (TRULICITY) 3-08 mg as ity of 3 mg/0.5 mL 00:00: directed [place] [facility] 00 weekly. [facility] Branch dulaglutide Yes [id number] 3mg Inject 3 [facility] (TRULICITY) 3-08 mg as it[facility] of 3 mg/0.5 mL 00:00: directed [place] [facility] 00 weekly. [facility] dulaglutide Yes [id number] 3mg Inject 3 [facility] (TRULICITY) 3-08 mg as [facility] of 3 mg/0.5 mL 00:00: directed [place] [facility] 00 weekly. [facility] dulaglutide Yes [id number] 3mg Inject 3 [facility] (TRULICITY) 3-08 mg as [facility] of 3 mg/0.5 mL 00:00: directed [place] [facility] 00 weekly. [facility] Branch dulaglutide Yes [id number] 3mg Inject 3 [facility] (TRULICITY) 3-08 mg as [facility]y of 3 mg/0.5 mL 00:00: directed [place] [facility] 00 weekly. [facility] dulaglutide Yes [id number] 3mg Inject 3 [facility] (TRULICITY) 3-08 mg as it[facility] of 3 mg/0.5 mL 00:00: directed [place] [facility] 00 weekly. [facility] dulaglutide Yes [id number] 3mg Inject 3 [facility] (TRULICITY) 3-08 mg as ity of 3 mg/0.5 mL 00:00: directed [place] [facility] 00 weekly. [facility] Branch dulaglutide Yes [id number] 3mg Inject 3 [facility] (TRULICITY) 3-08 mg as ity of 3 mg/0.5 mL 00:00: directed [place] [facility] 00 weekly. [facility] dulaglutide Yes [id number] 3mg Inject 3 [facility] (TRULICITY) 3-08 mg as ity of 3 mg/0.5 mL 00:00: directed [place] [facility] 00 weekly. [facility] dulaglutide Yes [id number] 3mg Inject 3 [facility] (TRULICITY) 3-08 mg as ity of 3 mg/0.5 mL 00:00: directed [place] [facility] 00 weekly. [facility] dulaglutide Yes [id number] 3mg Inject 3 [facility] (TRULICITY) 3-08 mg as [facility]y of 3 mg/0.5 mL 00:00: directed [place] [facility] 00 weekly. [facility] dulaglutide Yes [id number] 3mg Inject 3 [facility] (TRULICITY) 3-08 mg as [facility]y of 3 mg/0.5 mL 00:00: directed [place] [facility] 00 weekly. [facility] dulaglutide Yes [id number] 3mg Inject 3 [facility] (TRULICITY) 3-08 mg as [facility]y of 3 mg/0.5 mL 00:00: directed [place] [facility] 00 weekly. [facility] dulaglutide Yes [id number] 3mg Inject 3 [facility] (TRULICITY) 3-08 mg as [facility]y of 3 mg/0.5 mL 00:00: directed [place] [facility] 00 weekly. [facility] dulaglutide Yes [id number] 3mg Inject 3 [facility] (TRULICITY) 3-08 mg as ity of 3 mg/0.5 mL 00:00: directed [place] [facility] 00 weekly. [facility] dulaglutide Yes [id number] 3mg Inject 3 [facility] (TRULICITY) 3-08 mg as [facility]y of 3 mg/0.5 mL 00:00: directed [place] [facility] 00 weekly. [facility] dulaglutide Yes [id number] 3mg Inject 3 [facility] (TRULICITY) 3-08 mg as [facility] of 3 mg/0.5 mL 00:00: directed [place] [facility] 00 weekly. [facility] dulaglutide Yes [id number] 3mg Inject 3 [facility] (TRULICITY) 3-08 mg as [facility]y of 3 mg/0.5 mL 00:00: directed [place] [facility] 00 weekly. [facility] dulaglutide 2021- No [id number] 3mg Inject 3 [facility] (TRULICITY) 3-08 11-04 mg as ity of 3 mg/0.5 mL 00:00: 00:00 directed [place] [facility] 00 :00 weekly. [facility] Branch dulaglutide 2021- No [id number] 3mg Inject 3 [facility] (TRULICITY) 3-08 11-04 mg as ity of 3 mg/0.5 mL 00:00: 00:00 directed [place] [facility] 00 :00 weekly. [facility] dulaglutide 2021- No [id number] 3mg Inject 3 [facility] (TRULICITY) 3-08 11-04 mg as ity of 3 mg/0.5 mL 00:00: 00:00 directed [place] [facility] 00 :00 weekly. [facility] dulaglutide 2021- No [id number] 3mg Inject 3 [facility] (TRULICITY) 3-08 11-04 mg as ity of 3 mg/0.5 mL 00:00: 00:00 directed [place] [facility] 00 :00 weekly. [facility] empaglifloz 2021- No [id number] 10mg Take 1 [facility] in - 08-30 tablet by [facility] of (JARDI[place]) 00:00: 00:00 [facility] [place] 10 mg 00 :00 daily Medical before Branch breakfast. isosorbide 2021- No [id number] 30mg Take 0.5 [facility] mononitrate - 08-30 tablets by i ty of 60 mg 24 hr 00:00: 00:00 [facility] [place] tablet 00 :00 daily. [facility] proMETHazin Yes [id number] 25mg Take 1 [facility] e 25 mg 2-16 tablet by [facility] of tablet 00:00: mouth [place] 00 every 6 Medical (six) Branch hours. For nausea. proMETHazin Yes [id number] 25mg Take 1 [facility] e 25 mg 2-16 tablet by [facility] of tablet 00:00: mouth [place] 00 every 6 Medical (six) Branch hours. For nausea. proMETHazin 2-0 Yes [id number] 25mg Take 1 [facility] e 25 mg 2-16 tablet by [facility] of tablet 00:00: mouth [place] 00 every 6 Medical (six) Branch hours. For nausea. proMETHazin 2022-0 Yes [id number] 25mg Take 1 [facility] e 25 mg 2-16 tablet by [facility] of tablet 00:00: mouth [place] 00 every 6 Medical (six) Branch hours. For nausea. proMETHazin 2022-0 Yes [id number] 25mg Take 1 [facility] e 25 mg 2-16 tablet by [facility] of tablet 00:00: mouth [place] 00 every 6 Medical (six) Branch hours. For nausea. proMETHazin 2-0 Yes [id number] 25mg Take 1 [facility] e 25 mg 2-16 tablet by [facility]y of tablet 00:00: mouth [place] 00 every 6 Medical (six) Branch hours. For nausea. proMETHazin 2-0 Yes [id number] 25mg Take 1 [facility] e 25 mg 2-16 tablet by [facility] of tablet 00:00: mouth [place] 00 every 6 Medical (six) Branch hours. For nausea. proMETHazin 2-0 Yes [id number] 25mg Take 1 [facility] e 25 mg 2-16 tablet by [facility]y of tablet 00:00: mouth [place] 00 every 6 Medical (six) Branch hours. For nausea. proMETHazin 2-0 Yes [id number] 25mg Take 1 [facility] e 25 mg 2-16 tablet by [facility]y of tablet 00:00: mouth [place] 00 every 6 Medical (six) Branch hours. For nausea. proMETHazin 2-0 Yes [id number] 25mg Take 1 [facility] e 25 mg 2-16 tablet by ity of tablet 00:00: mouth [place] 00 every 6 Medical (six) Branch hours. For nausea. proMETHazin 2022-0 Yes [id number] 25mg Take 1 [facility] e 25 mg 2-16 tablet by [facility]y of tablet 00:00: mouth [place] 00 every 6 Medical (six) Branch hours. For nausea. proMETHazin 2022-0 Yes [id number] 25mg Take 1 [facility] e 25 mg 2-16 tablet by [facility]y of tablet 00:00: mouth [place] 00 every 6 Medical (six) Branch hours. For nausea. proMETHazin 2022-0 Yes [id number] 25mg Take 1 [facility] e 25 mg 2-16 tablet by [facility]y of tablet 00:00: mouth [place] 00 every 6 Medical (six) Branch hours. For nausea. proMETHazin 2-0 Yes [id number] 25mg Take 1 [facility] e 25 mg 2-16 tablet by [facility]y of tablet 00:00: mouth [place] 00 every 6 Medical (six) Branch hours. For nausea. proMETHazin 2-0 Yes [id number] 25mg Take 1 [facility] e 25 mg 2-16 tablet by [facility]y of tablet 00:00: mouth [place] 00 every 6 Medical (six) Branch hours. For nausea. proMETHazin 2-0 Yes [id number] 25mg Take 1 [facility] e 25 mg 2-16 tablet by [facility]y of tablet 00:00: mouth [place] 00 every 6 Medical (six) Branch hours. For nausea. proMETHazin 2-0 Yes [id number] 25mg Take 1 [facility] e 25 mg 2-16 tablet by ity of tablet 00:00: mouth [place] 00 every 6 Medical (six) Branch hours. For nausea. proMETHazin 2-0 Yes [id number] 25mg Take 1 [facility] e 25 mg 2-16 tablet by [facility]y of tablet 00:00: mouth [place] 00 every 6 Medical (six) Branch hours. For nausea. proMETHazin 2-0 Yes [id number] 25mg Take 1 [facility] e 25 mg 2-16 tablet by [facility]y of tablet 00:00: mouth [place] 00 every 6 Medical (six) Branch hours. For nausea. proMETHazin 2-0 Yes [id number] 25mg Take 1 [facility] e 25 mg 2-16 tablet by ity of tablet 00:00: mouth [place] 00 every 6 Medical (six) Branch hours. For nausea. proMETHazin 2-0 Yes [id number] 25mg Take 1 [facility] e 25 mg 2-16 tablet by [facility]y of tablet 00:00: mouth [place] 00 every 6 Medical (six) Branch hours. For nausea. proMETHazin 2022-0 Yes [id number] 25mg Take 1 [facility] e 25 mg 2-16 tablet by [facility]y of tablet 00:00: mouth [place] 00 every 6 Medical (six) Branch hours. For nausea. proMETHazin 2-0 Yes [id number] 25mg Take 1 [facility] e 25 mg 2-16 tablet by ity of tablet 00:00: mouth [place] 00 every 6 Medical (six) Branch hours. For nausea. proMETHazin 2022-0 Yes [id number] 25mg Take 1 [facility] e 25 mg 2-16 tablet by ity of tablet 00:00: mouth [place] 00 every 6 Medical (six) Branch hours. For nausea. proMETHazin 2022-0 Yes [id number] 25mg Take 1 [facility] e 25 mg 2-16 tablet by ity of tablet 00:00: mouth [place] 00 every 6 Medical (six) Branch hours. For nausea. proMETHazin 2022-0 Yes [id number] 25mg Take 1 [facility] e 25 mg 2-16 tablet by [facility]y of tablet 00:00: mouth [place] 00 every 6 Medical (six) Branch hours. For nausea. proMETHazin 2-0 Yes [id number] 25mg Take 1 [facility] e 25 mg 2-16 tablet by ity of tablet 00:00: mouth [place] 00 every 6 Medical (six) Branch hours. For nausea. proMETHazin 2022-0 Yes [id number] 25mg Take 1 [facility] e 25 mg 2-16 tablet by ity of tablet 00:00: mouth [place] 00 every 6 Medical (six) Branch hours. For nausea. proMETHazin 2-0 Yes [id number] 25mg Take 1 [facility] e 25 mg 2-16 tablet by [facility]y of tablet 00:00: mouth [place] 00 every 6 Medical (six) Branch hours. For nausea. proMETHazin 2-0 Yes [id number] 25mg Take 1 [facility] e 25 mg 2-16 tablet by ity of tablet 00:00: mouth [place] 00 every 6 Medical (six) Branch hours. For nausea. proMETHazin 2022-0 Yes [id number] 25mg Take 1 [facility] e 25 mg 2-16 tablet by ity of tablet 00:00: mouth [place] 00 every 6 Medical (six) Branch hours. For nausea. proMETHazin 2022-0 Yes [id number] 25mg Take 1 [facility] e 25 mg 2-16 tablet by ity of tablet 00:00: mouth [place] 00 every 6 Medical (six) Branch hours. For nausea. proMETHazin 2022-0 Yes [id number] 25mg Take 1 [facility] e 25 mg 2-16 tablet by [facility]y of tablet 00:00: mouth [place] 00 every 6 Medical (six) Branch hours. For nausea. proMETHazin 2022-0 Yes [id number] 25mg Take 1 [facility] e 25 mg 2-16 tablet by ity of tablet 00:00: mouth [place] 00 every 6 Medical (six) Branch hours. For nausea. proMETHazin 2-0 Yes [id number] 25mg Take 1 [facility] e 25 mg 2-16 tablet by [facility]y of tablet 00:00: mouth [place] 00 every 6 Medical (six) Branch hours. For nausea. proMETHazin 2022-0 Yes [id number] 25mg Take 1 [facility] e 25 mg 2-16 tablet by ity of tablet 00:00: mouth [place] 00 every 6 Medical (six) Branch hours. For nausea. proMETHazin 2022-0 Yes [id number] 25mg Take 1 [facility] e 25 mg 2-16 tablet by [facility]y of tablet 00:00: mouth [place] 00 every 6 Medical (six) Branch hours. For nausea. proMETHazin 2-0 Yes [id number] 25mg Take 1 [facility] e 25 mg 2-16 tablet by ity of tablet 00:00: mouth [place] 00 every 6 Medical (six) Branch hours. For nausea. proMETHazin 2-0 Yes [id number] 25mg Take 1 [facility] e 25 mg 2-16 tablet by ity of tablet 00:00: mouth [place] 00 every 6 Medical (six) Branch hours. For nausea. proMETHazin 2-0 Yes [id number] 25mg Take 1 [facility] e 25 mg 2-16 tablet by ity of tablet 00:00: mouth [place] 00 every 6 Medical (six) Branch hours. For nausea. proMETHazin 2-0 Yes [id number] 25mg Take 1 [facility] e 25 mg 2-16 tablet by ity of tablet 00:00: mouth [place] 00 every 6 Medical (six) Branch hours. For nausea. proMETHazin 2022-0 Yes [id number] 25mg Take 1 [facility] e 25 mg 2-16 tablet by ity of tablet 00:00: mouth [place] 00 every 6 Medical (six) Branch hours. For nausea. proMETHazin 2022-0 Yes [id number] 25mg Take 1 [facility] 2-16 tablet by [facility] tablet 00:00: mouth [place] 00 every 6 Medical (six) Branch hours. For nausea. proMETHazin 2022-0 Yes [id number] 25mg Take 1 [facility] 25 mg 2-16 tablet by [facility] of tablet 00:00: mouth [place] 00 every 6 Medical (six) Branch hours. For nausea. proMETHazin 2022-0 Yes [id number] 25mg Take 1 [facility] 25 mg 2-16 tablet by [facility] of tablet 00:00: mouth [place] 00 every 6 Medical (six) Branch hours. For nausea. proMETHazin 2022-0 Yes [id number] 25mg Take 1 [facility] 25 mg 2-16 tablet by [facility] of tablet 00:00: mouth [place] 00 every 6 Medical (six) Branch hours. For nausea. proMETHazin 2022-0 Yes [id number] 25mg Take 1 [facility] 25 mg 2-16 tablet by [facility] of tablet 00:00: mouth [place] 00 every 6 Medical (six) Branch hours. For nausea. proMETHazin 2022-0 Yes [id number] 25mg Take 1 [facility] 25 mg 2-16 tablet by [facility] of tablet 00:00: mouth [place] 00 every 6 Medical (six) Branch hours. For nausea. proMETHazin 2-0 Yes [id number] 25mg Take 1 [facility] 25 mg 2-16 tablet by [facility] of tablet 00:00: mouth [place] 00 every 6 Medical (six) Branch hours. For nausea. proMETHazin 2-0 Yes [id number] 25mg Take 1 [facility] 25 mg 2-16 tablet by [facility] of tablet 00:00: mouth [place] 00 every 6 Medical (six) Branch hours. For nausea. proMETHazin 2-0 Yes [id number] 25mg Take 1 [facility] 25 mg 2-16 tablet by [facility] of tablet 00:00: mouth [place] 00 every 6 Medical (six) Branch hours. For nausea. proMETHazin 2022-0 Yes [id number] 25mg Take 1 [facility] 25 mg 2-16 tablet by [facility] of tablet 00:00: mouth [place] 00 every 6 Medical (six) Branch hours. For nausea. proMETHazin 2022-0 Yes [id number] 25mg Take 1 [facility] 25 mg 2-16 tablet by [facility] of tablet 00:00: mouth [place] 00 every 6 Medical (six) Branch hours. For nausea. proMETHazin 2022-0 Yes [id number] 25mg Take 1 [facility] 25 mg 2-16 tablet by [facility] of tablet 00:00: mouth [place] 00 every 6 Medical (six) Branch hours. For nausea. proMETHazin 2022-0 Yes [id number] 25mg Take 1 [facility] 25 mg 2-16 tablet by [facility] of tablet 00:00: mouth [place] 00 every 6 Medical (six) Branch hours. For nausea. proMETHazin 2022-0 Yes [id number] 25mg Take 1 [facility] 25 mg 2-16 tablet by [facility] of tablet 00:00: mouth [place] 00 every 6 Medical (six) Branch hours. For nausea. proMETHazin 2022-0 Yes [id number] 25mg Take 1 [facility] 25 mg 2-16 tablet by [facility] of tablet 00:00: mouth [place] 00 every 6 Medical (six) Branch hours. For nausea. proMETHazin 2022-0 Yes [id number] 25mg Take 1 [facility] 25 mg 2-16 tablet by [facility] of tablet 00:00: mouth [place] 00 every 6 Medical (six) Branch hours. For nausea. proMETHazin 2022-0 Yes [id number] 25mg Take 1 [facility] 25 mg 2-16 tablet by [facility] of tablet 00:00: mouth [place] 00 every 6 Medical (six) Branch hours. For nausea. proMETHazin 2022-0 Yes [id number] 25mg Take 1 [facility] 25 mg 2-16 tablet by [facility] of tablet 00:00: mouth [place] 00 every 6 Medical (six) Branch hours. For nausea. proMETHazin 2-0 Yes [id number] 25mg Take 1 [facility] 25 mg 2-16 tablet by [facility] of tablet 00:00: mouth [place] 00 every 6 Medical (six) Branch hours. For nausea. proMETHazin 2022-0 Yes [id number] 25mg Take 1 [facility] 25 mg 2-16 tablet by [facility] of tablet 00:00: mouth [place] 00 every 6 Medical (six) Branch hours. For nausea. proMETHazin 2022-0 Yes [id number] 25mg Take 1 [facility] 25 mg 2-16 tablet by [facility] of tablet 00:00: mouth [place] 00 every 6 Medical (six) Branch hours. For nausea. proMETHazin 2022-0 Yes [id number] 25mg Take 1 [facility] 25 mg 2-16 tablet by [facility] of tablet 00:00: mouth [place] 00 every 6 Medical (six) Branch hours. For nausea. proMETHazin 2022-0 Yes [id number] 25mg Take 1 [facility] 25 mg 2-16 tablet by [facility] of tablet 00:00: mouth [place] 00 every 6 Medical (six) Branch hours. For nausea. proMETHazin 2022-0 Yes [id number] 25mg Take 1 [facility] 25 mg 2-16 tablet by [facility] of tablet 00:00: mouth [place] 00 every 6 Medical (six) Branch hours. For nausea. proMETHazin 2-0 Yes [id number] 25mg Take 1 [facility] 25 mg 2-16 tablet by [facility] of tablet 00:00: mouth [place] 00 every 6 Medical (six) Branch hours. For nausea. proMETHazin 2-0 Yes [id number] 25mg Take 1 [facility] 25 mg 2-16 tablet by [facility] of tablet 00:00: mouth [place] 00 every 6 Medical (six) Branch hours. For nausea. proMETHazin 2-0 Yes [id number] 25mg Take 1 [facility] 25 mg 2-16 tablet by [facility] of tablet 00:00: mouth [place] 00 every 6 Medical (six) Branch hours. For nausea. proMETHazin 2-0 Yes [id number] 25mg Take 1 [facility] 25 mg 2-16 tablet by [facility] of tablet 00:00: mouth [place] 00 every 6 Medical (six) Branch hours. For nausea. proMETHazin 2-0 Yes [id number] 25mg Take 1 [facility] 25 mg 2-16 tablet by [facility] of tablet 00:00: mouth [place] 00 every 6 Medical (six) Branch hours. For nausea. proMETHazin 2-0 Yes [id number] 25mg Take 1 [facility] 25 mg 2-16 tablet by [facility] of tablet 00:00: mouth [place] 00 every 6 Medical (six) Branch hours. For nausea. proMETHazin 2-0 Yes [id number] 25mg Take 1 [facility] 25 mg 2-16 tablet by [facility] of tablet 00:00: mouth [place] 00 every 6 Medical (six) Branch hours. For nausea. proMETHazin 2-0 Yes [id number] 25mg Take 1 [facility] 25 mg 2-16 tablet by [facility] of tablet 00:00: mouth [place] 00 every 6 Medical (six) Branch hours. For nausea. proMETHazin 2-0 Yes [id number] 25mg Take 1 [facility] 25 mg 2-16 tablet by [facility] of tablet 00:00: mouth [place] 00 every 6 Medical (six) Branch hours. For nausea. proMETHazin 2-0 Yes [id number] 25mg Take 1 [facility] 25 mg 2-16 tablet by [facility] of tablet 00:00: mouth [place] 00 every 6 Medical (six) Branch hours. For nausea. proMETHazin 2021-0 Yes [id number] 25mg Take 1 [facility] 25 mg 2-16 tablet by [facility] of tablet 00:00: mouth [place] 00 every 6 Medical (six) Branch hours. For nausea. proMETHazin 2021-0 Yes [id number] 25mg Take 1 [facility] 25 mg 2-16 tablet by [facility] of tablet 00:00: mouth [place] 00 every 6 Medical (six) Branch hours. For nausea. proMETHazin 2021-0 Yes [id number] 25mg Take 1 [facility] 25 mg 2-16 tablet by [facility] of tablet 00:00: mouth [place] 00 every 6 Medical (six) Branch hours. For nausea. proMETHazin 2021-0 Yes [id number] 25mg Take 1 [facility] 25 mg 2-16 tablet by [facility] of tablet 00:00: mouth [place] 00 every 6 Medical (six) Branch hours. For nausea. proMETHazin 2021-0 3- No [id number] 25mg Take 1 [facility] 25 mg 2-16 04-12 tablet by [facility] of tablet 00:00: 00:00 mouth [place] 00 :00 every 6 Medical (six) Branch hours. For nausea. proMETHazin 2021-0 3- No [id number] 25mg Take 1 [facility] 25 mg 2-16 04-12 tablet by [facility] of tablet 00:00: 00:00 mouth [place] 00 :00 every 6 Medical (six) Branch hours. For nausea. proMETHazin 2021-0 3- No [id number] 25mg Take 1 [facility] 25 mg 2-16 04-12 tablet by [facility] of tablet 00:00: 00:00 mouth [place] 00 :00 every 6 Medical (six) Branch hours. For nausea. Ranolazine 0 2021- No 1000mg Take 1 [facility] [place] 1,000 mg 2-15 09-04 tablet by ity o f tablet 00:00: 00:00 mouth 2 [place] 00 :00 (two) Medical times Branch daily. pantoprazol 2020-06 Yes [id number] 40mg Take 1 [facility] 40 mg EC 1-30 tablet by [facility] of tablet 00:00: mouth 2 [place] 00 (two) Medical times Branch daily. pantoprazol 2020-06 Yes [id number] 40mg Take 1 [facility] 40 mg EC 1-30 tablet by [facility] of tablet 00:00: mouth 2 [place] 00 (two) Medical times Branch daily. pantoprazol 2020-06 Yes [id number] 40mg Take 1 [facility] 40 mg EC 1-30 tablet by [facility] of tablet 00:00: mouth (two) Medical times Branch daily. pantoprazol 2020-06 Yes [id number] 40mg Take 1 [facility] 40 mg EC 1-30 tablet by [facility] of tablet 00:00: mouth (two) Medical times Branch daily. pantoprazol 2020-06 Yes [id number] 40mg Take 1 [facility] 40 mg EC 1-30 tablet by [facility] of tablet 00:00: mouth (two) Medical times Branch daily. pantoprazol 2020-06 Yes [id number] 40mg Take 1 [facility] 40 mg EC 1-30 tablet by [facility] of tablet 00:00: mouth (two) Medical times Branch daily. pantoprazol 2020-06 Yes [id number] 40mg Take 1 [facility] 40 mg EC 1-30 tablet by [facility] of tablet 00:00: mouth (two) Medical times Branch daily. pantoprazol 2020-06 Yes [id number] 40mg Take 1 [facility] 40 mg EC 1-30 tablet by [facility] of tablet 00:00: mouth (two) Medical times Branch daily. pantoprazol 2020-06 Yes [id number] 40mg Take 1 [facility] 40 mg EC 1-30 tablet by [facility] of tablet 00:00: mouth (two) Medical times Branch daily. pantoprazol 2020-06 Yes [id number] 40mg Take 1 [facility] 40 mg EC 1-30 tablet by [facility] of tablet 00:00: mouth (two) Medical times Branch daily. pantoprazol 2020-06 Yes [id number] 40mg Take 1 [facility] 40 mg EC 1-30 tablet by [facility] of tablet 00:00: mouth (two) Medical times Branch daily. pantoprazol 2020-06 Yes [id number] 40mg Take 1 [facility] 40 mg EC 1-30 tablet by [facility] of tablet 00:00: mouth (two) Medical times Branch daily. pantoprazol 2020-06 Yes [id number] 40mg Take 1 [facility] 40 mg EC 1-30 tablet by [facility] of tablet 00:00: mouth (two) Medical times Branch daily. pantoprazol 2020-06 Yes [id number] 40mg Take 1 [facility] 40 mg EC 1-30 tablet by [facility] of tablet 00:00: mouth (two) Medical times Branch daily. pantoprazol 2020-06 Yes [id number] 40mg Take 1 [facility] 40 mg EC 1-30 tablet by [facility] of tablet 00:00: mouth (two) Medical times Branch daily. pantoprazol 2020-06 Yes [id number] 40mg Take 1 [facility] 40 mg EC 1-30 tablet by [facility] of tablet 00:00: mouth (two) Medical times Branch daily. pantoprazol 2020-06 Yes [id number] 40mg Take 1 [facility] 40 mg EC 1-30 tablet by [facility] of tablet 00:00: mouth (two) Medical times Branch daily. pantoprazol 2020-06 Yes [id number] 40mg Take 1 [facility] 40 mg EC 1-30 tablet by [facility] of tablet 00:00: mouth (two) Medical times Branch daily. pantoprazol 2020-06 Yes [id number] 40mg Take 1 [facility] 40 mg EC 1-30 tablet by [facility] of tablet 00:00: mouth (two) Medical times Branch daily. pantoprazol 2020-06 Yes [id number] 40mg Take 1 [facility] 40 mg EC 1-30 tablet by [facility] of tablet 00:00: mouth (two) Medical times Branch daily. pantoprazol 2020-06 Yes [id number] 40mg Take 1 [facility] 40 mg EC 1-30 tablet by [facility] of tablet 00:00: mouth (two) Medical times Branch daily. pantoprazol 2020-06 Yes [id number] 40mg Take 1 [facility] 40 mg EC 1-30 tablet by [facility] of tablet 00:00: mouth (two) Medical times Branch daily. pantoprazol 2020-06 Yes [id number] 40mg Take 1 [facility] 40 mg EC 1-30 tablet by [facility] of tablet 00:00: mouth (two) Medical times Branch daily. pantoprazol 2020-06 Yes [id number] 40mg Take 1 [facility] 40 mg EC 1-30 tablet by [facility] of tablet 00:00: mouth 2 [place] 00 (two) Medical times Branch daily. pantoprazol 2020-06- No [id number] 40mg Take 1 [facility] 40 mg EC 1-30 11-29 tablet by ity of tablet 00:00: 00:00 mouth 2 [place] 00 :00 (two) Medical times Branch daily. pantoprazol 2020-06- No [id number] 40mg Take 1 [facility] 40 mg EC 1-30 11-29 tablet by ity of tablet 00:00: 00:00 mouth 2 [place] 00 :00 (two) Medical times Branch daily. pantoprazol 2020-06- No [id number] 40mg Take 1 [facility] 40 mg EC 1-30 11-29 tablet by ity of tablet 00:00: 00:00 mouth 2 [place] 00 :00 (two) Medical times Branch daily. pantoprazol 2020-06- No [id number] 40mg Take 1 [facility] 40 mg EC 1-30 11-29 tablet by ity of tablet 00:00: 00:00 mouth 2 [place] 00 :00 (two) Medical times Branch daily. pantoprazol 2020-06- No [id number] 40mg Take 1 [facility] 40 mg EC 1-30 -29 tablet by ity of tablet 00:00: 00:00 mouth 2 [place] 00 :00 (two) Medical times Branch daily. pantoprazol 2020-06- No [id number] 40mg Take 1 [facility] 40 mg EC 1-30 11-29 tablet by ity of tablet 00:00: 00:00 mouth 2 [place] 00 :00 (two) Medical times Branch daily. Insulin Yes USE [facility] [place], 7-19 DIRECTED ity of Disposable, 00:00: 1X EVERY [place] (YANNI PEN DAY. Medical NEEDLE) 32 DX:E11.59 Bran ch gauge x 5/32" Ndle Insulin 0 Yes USE [facility] [place], 7-19 DIRECTED ity of Disposable, 00:00: 1X EVERY [place] (YANNI PEN 00 DAY. Medical NEEDLE) 32 DX:E11.59 Bran ch gauge x 5/32" Ndle Insulin Yes USE [facility] [place], 7-19 DIRECTED ity of Disposable, 00:00: 1X EVERY [place] (YANNI PEN . Medical NEEDLE) 32 DX:E11.59 Bran ch gauge x 5/32" Ndle Insulin 2020-0 Yes USE [facility] [place], 7-19 DIRECTED ity of Disposable, 00:00: 1X EVERY [place] (YANNI PEN . Medical NEEDLE) 32 DX:E11.59 Bran ch gauge x 5/32" Ndle Insulin 2020-0 Yes USE [facility] [place], 7-19 DIRECTED ity of Disposable, 00:00: 1X EVERY [place] (YANNI PEN . Medical NEEDLE) 32 DX:E11.59 Bran ch gauge x 5/32" Ndle Insulin 2020-0 Yes USE [facility] [place], 7-19 DIRECTED ity of Disposable, 00:00: 1X EVERY [place] (YANNI PEN . Medical NEEDLE) 32 DX:E11.59 Bran ch gauge x 5/32" Ndle Insulin 2020-0 Yes USE [facility] [place], 7-19 DIRECTED ity of Disposable, 00:00: 1X EVERY [place] (YANNI PEN . Medical NEEDLE) 32 DX:E11.59 Bran ch gauge x 5/32" Ndle Insulin 2020-0 Yes USE [facility] [place], 7-19 DIRECTED ity of Disposable, 00:00: 1X EVERY [place] (YANNI PEN . Medical NEEDLE) 32 DX:E11.59 Bran ch gauge x 5/32" Ndle Insulin 2020-0 Yes USE [facility] [place], 7-19 DIRECTED ity of Disposable, 00:00: 1X EVERY [place] (YANNI PEN . Medical NEEDLE) 32 DX:E11.59 Bran ch gauge x 5/32" Ndle Insulin 2020-0 Yes USE [facility] [place], 7-19 DIRECTED ity of Disposable, 00:00: 1X EVERY [place] (YANNI PEN . Medical NEEDLE) 32 DX:E11.59 Bran ch gauge x 5/32" Ndle Insulin 2020-0 Yes USE [facility] [place], 7-19 DIRECTED ity of Disposable, 00:00: 1X EVERY [place] (YANNI PEN . Medical NEEDLE) 32 DX:E11.59 Bran ch gauge x 5/32" Ndle Insulin 2020-0 Yes USE [facility] [place], 7-19 DIRECTED ity of Disposable, 00:00: 1X EVERY [place] (YANNI PEN . Medical NEEDLE) 32 DX:E11.59 Bran ch gauge x 5/32" Ndle Insulin 2020-0 Yes USE [facility] [place], 7-19 DIRECTED ity of Disposable, 00:00: 1X EVERY [place] (YANNI PEN DAY. Medical NEEDLE) 32 DX:E11.59 Bran ch gauge x 5/32" Ndle Insulin 2020-0 Yes USE [facility] [place], 7-19 DIRECTED ity of Disposable, 00:00: 1X EVERY [place] (YANNI PEN DAY. Medical NEEDLE) 32 DX:E11.59 Bran ch gauge x 5/32" Ndle Insulin 2020-0 Yes USE [facility] [place], 7-19 DIRECTED ity of Disposable, 00:00: 1X EVERY [place] (YANNI PEN DAY. Medical NEEDLE) 32 DX:E11.59 Bran ch gauge x 5/32" Ndle Insulin 2020-0 Yes USE [facility] [place], 7-19 DIRECTED ity of Disposable, 00:00: 1X EVERY [place] (YANNI PEN . Medical NEEDLE) 32 DX:E11.59 Bran ch gauge x 5/32" Ndle Insulin 2020-0 Yes USE [facility] [place], 7-19 DIRECTED ity of Disposable, 00:00: 1X EVERY [place] (YANNI PEN DAY. Medical NEEDLE) 32 DX:E11.59 Bran ch gauge x 5/32" Ndle Insulin 2020-0 Yes USE [facility] [place], 7-19 DIRECTED ity of Disposable, 00:00: 1X EVERY [place] (YANNI PEN . Medical NEEDLE) 32 DX:E11.59 Bran ch gauge x 5/32" Ndle Insulin 2020-0 Yes USE [facility] [place], 7-19 DIRECTED ity of Disposable, 00:00: 1X EVERY [place] (YANNI PEN DAY. Medical NEEDLE) 32 DX:E11.59 Bran ch gauge x 5/32" Ndle Insulin 2020-0 Yes USE [facility] [place], 7-19 DIRECTED ity of Disposable, 00:00: 1X EVERY [place] (YANNI PEN . Medical NEEDLE) 32 DX:E11.59 Bran ch gauge x 5/32" Ndle Insulin 2020-0 Yes USE [facility] [place], 7-19 DIRECTED ity of Disposable, 00:00: 1X EVERY [place] (YANNI PEN DAY. Medical NEEDLE) 32 DX:E11.59 Bran ch gauge x 5/32" Ndle Insulin 2020-0 Yes USE [facility] [place], 7-19 DIRECTED ity of Disposable, 00:00: 1X EVERY [place] (YANNI PEN . Medical NEEDLE) 32 DX:E11.59 Bran ch gauge x 5/32" Ndle Insulin 2020-0 Yes USE [facility] [place], 7-19 DIRECTED ity of Disposable, 00:00: 1X EVERY [place] (YANNI PEN . Medical NEEDLE) 32 DX:E11.59 Bran ch gauge x 5/32" Ndle Insulin 2020-0 Yes USE [facility] [place], 7-19 DIRECTED ity of Disposable, 00:00: 1X EVERY [place] (YANNI PEN . Medical NEEDLE) 32 DX:E11.59 Bran ch gauge x 5/32" Ndle Insulin 2020-0 Yes USE [facility] [place], 7-19 DIRECTED ity of Disposable, 00:00: 1X EVERY [place] (YANNI PEN . Medical NEEDLE) 32 DX:E11.59 Bran ch gauge x 5/32" Ndle Insulin 2020-0 Yes USE [facility] [place], 7-19 DIRECTED ity of Disposable, 00:00: 1X EVERY [place] (YANNI PEN . Medical NEEDLE) 32 DX:E11.59 Bran ch gauge x 5/32" Ndle Insulin 2020-0 Yes USE [facility] [place], 7-19 DIRECTED ity of Disposable, 00:00: 1X EVERY [place] (YANNI PEN . Medical NEEDLE) 32 DX:E11.59 Bran ch gauge x 5/32" Ndle Insulin 2020-0 Yes USE [facility] [place], 7-19 DIRECTED ity of Disposable, 00:00: 1X EVERY [place] (YANNI PEN . Medical NEEDLE) 32 DX:E11.59 Bran ch gauge x 5/32" Ndle Insulin 2020-0 Yes USE [facility] [place], 7-19 DIRECTED ity of Disposable, 00:00: 1X EVERY [place] (YANNI PEN . Medical NEEDLE) 32 DX:E11.59 Bran ch gauge x 5/32" Ndle Insulin 2020-0 Yes USE [facility] [place], 7-19 DIRECTED ity of Disposable, 00:00: 1X EVERY [place] (YANNI PEN . Medical NEEDLE) 32 DX:E11.59 Bran ch gauge x 5/32" Ndle Insulin 2020-0 Yes USE [facility] [place], 7-19 DIRECTED ity of Disposable, 00:00: 1X EVERY [place] (YANNI PEN 00 DAY. Medical NEEDLE) 32 DX:E11.59 Bran ch gauge x 5/32" Ndle Insulin 2020-2021- No USE [facility] [place], 01-08 DIRECTED ity of Disposable, 00:00: 00:00 1X EVERY [place] (YANNI PEN 00 :00 DAY. Medical NEEDLE) 32 DX:E11.59 Bran ch gauge x 5/32" Ndle Insulin 2020-2021- No USE [facility] [place], 01-08 DIRECTED ity of Disposable, 00:00: 00:00 1X EVERY [place] (YANNI PEN 00 :00 DAY. Medical NEEDLE) 32 DX:E11.59 Bran ch gauge x 5/32" Ndle Insulin 2020-2021- No USE [facility] [place], 01-08 DIRECTED ity of Disposable, 00:00: 00:00 1X EVERY [place] (YANNI PEN 00 :00 DAY. Medical NEEDLE) 32 DX:E11.59 Bran ch gauge x 5/32" Ndle nystatin 2020-0 Yes [id number] Apply to [facility] 100,000 6-14 area(s) 2 ity of unit/gram 00:00: (two) [place] powder 00 times Medical daily. Branch nystatin 2020-0 Yes [id number] Apply to [facility] 100,000 6-14 area(s) 2 ity of unit/gram 00:00: (two) [place] powder 00 times Medical daily. Branch nystatin 2020-0 Yes [id number] Apply to [facility] 100,000 6-14 area(s) 2 ity of unit/gram 00:00: (two) [place] powder 00 times Medical daily. Branch nystatin 2020-0 Yes [id number] Apply to [facility] 100,000 6-14 area(s) 2 ity of unit/gram 00:00: (two) [place] powder 00 times Medical daily. Branch nystatin 2021-0 Yes [id number] Apply to [facility] 100,000 6-14 area(s) 2 ity of unit/gram 00:00: (two) [place] powder 00 times Medical daily. Branch nystatin 2021-0 Yes [id number] Apply to [facility] 100,000 6-14 area(s) 2 ity of unit/gram 00:00: (two) [place] powder 00 times Medical daily. Branch nystatin 2021-0 Yes [id number] Apply to [facility] 100,000 6-14 area(s) 2 ity of unit/gram 00:00: (two) [place] powder 00 times Medical daily. Branch nystatin 2021-0 Yes [id number] Apply to [facility] 100,000 6-14 area(s) 2 ity of unit/gram 00:00: (two) [place] powder 00 times Medical daily. Branch nystatin 2021-0 Yes [id number] Apply to [facility] 100,000 6-14 area(s) 2 ity of unit/gram 00:00: (two) [place] powder 00 times Medical daily. Branch nystatin 2021-0 Yes [id number] Apply to [facility] 100,000 6-14 area(s) 2 ity of unit/gram 00:00: (two) [place] powder 00 times Medical daily. Branch nystatin 2021-0 Yes [id number] Apply to [facility] 100,000 6-14 area(s) 2 ity of unit/gram 00:00: (two) [place] powder 00 times Medical daily. Branch nystatin 2021-0 Yes [id number] Apply to [facility] 100,000 6-14 area(s) 2 ity of unit/gram 00:00: (two) [place] powder 00 times Medical daily. Branch nystatin 2021-0 Yes [id number] Apply to [facility] 100,000 6-14 area(s) 2 ity of unit/gram 00:00: (two) [place] powder 00 times Medical daily. Branch nystatin 2021-0 Yes [id number] Apply to [facility] 100,000 6-14 area(s) 2 ity of unit/gram 00:00: (two) [place] powder 00 times Medical daily. Branch nystatin 2021-0 Yes [id number] Apply to [facility] 100,000 6-14 area(s) 2 ity of unit/gram 00:00: (two) [place] powder 00 times Medical daily. Branch nystatin 2021-0 Yes [id number] Apply to [facility] 100,000 6-14 area(s) 2 ity of unit/gram 00:00: (two) [place] powder 00 times Medical daily. Branch nystatin 2021-0 Yes [id number] Apply to [facility] 100,000 6-14 area(s) 2 ity of unit/gram 00:00: (two) [place] powder 00 times Medical daily. Branch nystatin 2021-0 Yes [id number] Apply to [facility] 100,000 6-14 area(s) 2 ity of unit/gram 00:00: (two) [place] powder 00 times Medical daily. Branch nystatin 2021-0 Yes [id number] Apply to [facility] 100,000 6-14 area(s) 2 ity of unit/gram 00:00: (two) [place] powder 00 times Medical daily. Branch nystatin 2021-0 Yes [id number] Apply to [facility] 100,000 6-14 area(s) 2 ity of unit/gram 00:00: (two) [place] powder 00 times Medical daily. Branch nystatin 2021-0 Yes [id number] Apply to [facility] 100,000 6-14 area(s) 2 ity of unit/gram 00:00: (two) [place] powder 00 times Medical daily. Branch nystatin 1-0 Yes [id number] Apply to [facility] 100,000 6-14 area(s) 2 ity of unit/gram 00:00: (two) [place] powder 00 times Medical daily. Branch nystatin 2021-0 Yes [id number] Apply to [facility] 100,000 6-14 area(s) 2 ity of unit/gram 00:00: (two) [place] powder 00 times Medical daily. Branch nystatin 2021-0 Yes [id number] Apply to [facility] 100,000 6-14 area(s) 2 ity of unit/gram 00:00: (two) [place] powder 00 times Medical daily. Branch nystatin 2021-0 Yes [id number] Apply to [facility] 100,000 6-14 area(s) 2 ity of unit/gram 00:00: (two) [place] powder 00 times Medical daily. Branch nystatin 2021-0 Yes [id number] Apply to [facility] 100,000 6-14 area(s) 2 ity of unit/gram 00:00: (two) [place] powder 00 times Medical daily. Branch nystatin 2021-0 Yes [id number] Apply to [facility] 100,000 6-14 area(s) 2 ity of unit/gram 00:00: (two) [place] powder 00 times Medical daily. Branch nystatin 2021-0 Yes [id number] Apply to [facility] 100,000 6-14 area(s) 2 ity of unit/gram 00:00: (two) [place] powder 00 times Medical daily. Branch nystatin 2021-0 Yes [id number] Apply to [facility] 100,000 6-14 area(s) 2 ity of unit/gram 00:00: (two) [place] powder 00 times Medical daily. Branch nystatin 2021-0 Yes [id number] Apply to [facility] 100,000 6-14 area(s) 2 ity of unit/gram 00:00: (two) [place] powder 00 times Medical daily. Branch nystatin 2021-0 Yes [id number] Apply to [facility] 100,000 6-14 area(s) 2 ity of unit/gram 00:00: (two) [place] powder 00 times Medical daily. Branch nystatin 2021-0 Yes [id number] Apply to [facility] 100,000 6-14 area(s) 2 ity of unit/gram 00:00: (two) [place] powder 00 times Medical daily. Branch nystatin 2021-0 Yes [id number] Apply to [facility] 100,000 6-14 area(s) 2 ity of unit/gram 00:00: (two) [place] powder 00 times Medical daily. Branch nystatin 2021-0 Yes [id number] Apply to [facility] 100,000 6-14 area(s) 2 ity of unit/gram 00:00: (two) [place] powder 00 times Medical daily. Branch nystatin 2021-0 Yes [id number] Apply to [facility] 100,000 6-14 area(s) 2 ity of unit/gram 00:00: (two) [place] powder 00 times Medical daily. Branch nystatin 2021-0 Yes [id number] Apply to [facility] 100,000 6-14 area(s) 2 ity of unit/gram 00:00: (two) [place] powder 00 times Medical daily. Branch nystatin 2021-0 Yes [id number] Apply to [facility] 100,000 6-14 area(s) 2 ity of unit/gram 00:00: (two) [place] powder 00 times Medical daily. Branch nystatin 2021-0 Yes [id number] Apply to [facility] 100,000 6-14 area(s) 2 ity of unit/gram 00:00: (two) [place] powder 00 times Medical daily. Branch nystatin 2021-0 Yes [id number] Apply to [facility] 100,000 6-14 area(s) 2 ity of unit/gram 00:00: (two) [place] powder 00 times Medical daily. Branch nystatin 2021-0 Yes [id number] Apply to [facility] 100,000 6-14 area(s) 2 ity of unit/gram 00:00: (two) [place] powder 00 times Medical daily. Branch nystatin 2021-0 Yes [id number] Apply to [facility] 100,000 6-14 area(s) 2 ity of unit/gram 00:00: (two) [place] powder 00 times Medical daily. Branch nystatin 2021-0 Yes [id number] Apply to [facility] 100,000 6-14 area(s) 2 ity of unit/gram 00:00: (two) [place] powder 00 times Medical daily. Branch nystatin 2021-0 Yes [id number] Apply to [facility] 100,000 6-14 area(s) 2 ity of unit/gram 00:00: (two) [place] powder 00 times Medical daily. Branch nystatin 2021-0 Yes [id number] Apply to [facility] 100,000 6-14 area(s) 2 ity of unit/gram 00:00: (two) [place] powder 00 times Medical daily. Branch nystatin 2021-0 Yes [id number] Apply to [facility] 100,000 6-14 area(s) 2 ity of unit/gram 00:00: (two) [place] powder 00 times Medical daily. Branch nystatin 2021-0 Yes [id number] Apply to [facility] 100,000 6-14 area(s) 2 ity of unit/gram 00:00: (two) [place] powder 00 times Medical daily. Branch nystatin 2021-0 Yes [id number] Apply to [facility] 100,000 6-14 area(s) 2 ity of unit/gram 00:00: (two) [place] powder 00 times Medical daily. Branch nystatin 2021-0 Yes [id number] Apply to [facility] 100,000 6-14 area(s) 2 ity of unit/gram 00:00: (two) [place] powder 00 times Medical daily. Branch nystatin 2021-0 Yes [id number] Apply to [facility] 100,000 6-14 area(s) 2 ity of unit/gram 00:00: (two) [place] powder 00 times Medical daily. Branch nystatin 2021-0 Yes [id number] Apply to [facility] 100,000 6-14 area(s) 2 ity of unit/gram 00:00: (two) [place] powder 00 times Medical daily. Branch nystatin 2021-0 Yes [id number] Apply to [facility] 100,000 6-14 area(s) 2 ity of unit/gram 00:00: (two) [place] powder 00 times Medical daily. Branch nystatin 2021-0 Yes [id number] Apply to [facility] 100,000 6-14 area(s) 2 ity of unit/gram 00:00: (two) [place] powder 00 times Medical daily. Branch nystatin 2021-0 Yes [id number] Apply to [facility] 100,000 6-14 area(s) 2 ity of unit/gram 00:00: (two) [place] powder 00 times Medical daily. Branch nystatin 2021-0 Yes [id number] Apply to [facility] 100,000 6-14 area(s) 2 ity of unit/gram 00:00: (two) [place] powder 00 times Medical daily. Branch nystatin 2021-0 Yes [id number] Apply to [facility] 100,000 6-14 area(s) 2 ity of unit/gram 00:00: (two) [place] powder 00 times Medical daily. Branch nystatin 2021-0 Yes [id number] Apply to [facility] 100,000 6-14 area(s) 2 ity of unit/gram 00:00: (two) [place] powder 00 times Medical daily. Branch nystatin 2021-0 Yes [id number] Apply to [facility] 100,000 6-14 area(s) 2 ity of unit/gram 00:00: (two) [place] powder 00 times Medical daily. Branch nystatin 2021-0 Yes [id number] Apply to [facility] 100,000 6-14 area(s) 2 ity of unit/gram 00:00: (two) [place] powder 00 times Medical daily. Branch nystatin 2021-0 Yes [id number] Apply to [facility] 100,000 6-14 area(s) 2 ity of unit/gram 00:00: (two) [place] powder 00 times Medical daily. Branch nystatin 2021-0 Yes [id number] Apply to [facility] 100,000 6-14 area(s) 2 ity of unit/gram 00:00: (two) [place] powder 00 times Medical daily. Branch nystatin 2021-0 Yes [id number] Apply to [facility] 100,000 6-14 area(s) 2 ity of unit/gram 00:00: (two) [place] powder 00 times Medical daily. Branch nystatin 2021-0 Yes [id number] Apply to [facility] 100,000 6-14 area(s) 2 ity of unit/gram 00:00: (two) [place] powder 00 times Medical daily. Branch nystatin 2021-0 Yes [id number] Apply to [facility] 100,000 6-14 area(s) 2 ity of unit/gram 00:00: (two) [place] powder 00 times Medical daily. Branch nystatin 2021-0 Yes [id number] Apply to [facility] 100,000 6-14 area(s) 2 ity of unit/gram 00:00: (two) [place] powder 00 times Medical daily. Branch nystatin 2021-0 Yes [id number] Apply to [facility] 100,000 6-14 area(s) 2 ity of unit/gram 00:00: (two) [place] powder 00 times Medical daily. Branch nystatin 2021-0 Yes [id number] Apply to [facility] 100,000 6-14 area(s) 2 ity of unit/gram 00:00: (two) [place] powder 00 times Medical daily. Branch nystatin 2021-0 Yes [id number] Apply to [facility] 100,000 6-14 area(s) 2 ity of unit/gram 00:00: (two) [place] powder 00 times Medical daily. Branch nystatin 2021-0 Yes [id number] Apply to [facility] 100,000 6-14 area(s) 2 ity of unit/gram 00:00: (two) [place] powder 00 times Medical daily. Branch nystatin 2021-0 Yes [id number] Apply to [facility] 100,000 6-14 area(s) 2 ity of unit/gram 00:00: (two) [place] powder 00 times Medical daily. Branch nystatin 2021-0 Yes [id number] Apply to [facility] 100,000 6-14 area(s) 2 ity of unit/gram 00:00: (two) [place] powder 00 times Medical daily. Branch nystatin 2021-0 Yes [id number] Apply to [facility] 100,000 6-14 area(s) 2 ity of unit/gram 00:00: (two) [place] powder 00 times Medical daily. Branch nystatin 2021-0 Yes [id number] Apply to [facility] 100,000 6-14 area(s) 2 ity of unit/gram 00:00: (two) [place] powder 00 times Medical daily. Branch nystatin 2021-0 Yes [id number] Apply to [facility] 100,000 6-14 area(s) 2 ity of unit/gram 00:00: (two) [place] powder 00 times Medical daily. Branch nystatin 2021-0 Yes [id number] Apply to [facility] 100,000 6-14 area(s) 2 ity of unit/gram 00:00: (two) [place] powder 00 times Medical daily. Branch nystatin 2021-0 Yes [id number] Apply to [facility] 100,000 6-14 area(s) 2 ity of unit/gram 00:00: (two) [place] powder 00 times Medical daily. Branch nystatin 2021-0 Yes [id number] Apply to [facility] 100,000 6-14 area(s) 2 ity of unit/gram 00:00: (two) [place] powder 00 times Medical daily. Branch nystatin 2021-0 Yes [id number] Apply to [facility] 100,000 6-14 area(s) 2 ity of unit/gram 00:00: (two) [place] powder 00 times Medical daily. Branch nystatin 2021-0 Yes [id number] Apply to [facility] 100,000 6-14 area(s) 2 ity of unit/gram 00:00: (two) [place] powder 00 times Medical daily. Branch nystatin 2021-0 Yes [id number] Apply to [facility] 100,000 6-14 area(s) 2 ity of unit/gram 00:00: (two) [place] powder 00 times Medical daily. Branch nystatin 2021-0 Yes [id number] Apply to [facility] 100,000 6-14 area(s) 2 ity of unit/gram 00:00: (two) [place] powder 00 times Medical daily. Branch nystatin 2021-0 Yes [id number] Apply to [facility] 100,000 6-14 area(s) 2 ity of unit/gram 00:00: (two) [place] powder 00 times Medical daily. Branch nystatin 2021-0 Yes [id number] Apply to [facility] 100,000 6-14 area(s) 2 ity of unit/gram 00:00: (two) [place] powder 00 times Medical daily. Branch nystatin 2021-0 Yes [id number] Apply to [facility] 100,000 6-14 area(s) 2 ity of unit/gram 00:00: (two) [place] powder 00 times Medical daily. Branch nystatin 2021-0 Yes [id number] Apply to [facility] 100,000 6-14 area(s) 2 ity of unit/gram 00:00: (two) [place] powder 00 times Medical daily. Branch nystatin 2021-0 Yes [id number] Apply to [facility] 100,000 6-14 area(s) 2 ity of unit/gram 00:00: (two) [place] powder 00 times Medical daily. Branch nystatin 2021-0 Yes [id number] Apply to [facility] 100,000 6-14 area(s) 2 ity of unit/gram 00:00: (two) [place] powder 00 times Medical daily. Branch nystatin 2021-0 Yes [id number] Apply to [facility] 100,000 6-14 area(s) 2 ity of unit/gram 00:00: (two) [place] powder 00 times Medical daily. Branch nystatin 2021-0 Yes [id number] Apply to [facility] 100,000 6-14 area(s) 2 ity of unit/gram 00:00: (two) [place] powder 00 times Medical daily. Branch nystatin 2021-0 Yes [id number] Apply to [facility] 100,000 6-14 area(s) 2 ity of unit/gram 00:00: (two) [place] powder 00 times Medical daily. Branch nystatin 2021-0 Yes [id number] Apply to [facility] 100,000 6-14 area(s) 2 ity of unit/gram 00:00: (two) [place] powder 00 times Medical daily. Branch nystatin 2021-0 Yes [id number] Apply to [facility] 100,000 6-14 area(s) 2 ity of unit/gram 00:00: (two) [place] powder 00 times Medical daily. Branch nystatin 2021-0 Yes [id number] Apply to [facility] 100,000 6-14 area(s) 2 ity of unit/gram 00:00: (two) [place] powder 00 times Medical daily. Branch nystatin 2021-0 Yes [id number] Apply to [facility] 100,000 6-14 area(s) 2 ity of unit/gram 00:00: (two) [place] powder 00 times Medical daily. Branch nystatin 2021-0 Yes [id number] Apply to [facility] 100,000 6-14 area(s) 2 ity of unit/gram 00:00: (two) [place] powder 00 times Medical daily. Branch nystatin 2021-0 Yes [id number] Apply to [facility] 100,000 6-14 area(s) 2 ity of unit/gram 00:00: (two) [place] powder 00 times Medical daily. Branch nystatin 2021-0 Yes [id number] Apply to [facility] 100,000 6-14 area(s) 2 ity of unit/gram 00:00: (two) [place] powder 00 times Medical daily. Branch nystatin 2021-0 Yes [id number] Apply to [facility] 100,000 6-14 area(s) 2 ity of unit/gram 00:00: (two) [place] powder 00 times Medical daily. Branch nystatin 2021-0 Yes [id number] Apply to [facility] 100,000 6-14 area(s) 2 ity of unit/gram 00:00: (two) [place] powder 00 times Medical daily. Branch nystatin 2021-0 Yes [id number] Apply to [facility] 100,000 6-14 area(s) 2 ity of unit/gram 00:00: (two) [place] powder 00 times Medical daily. Branch nystatin 2021-0 Yes [id number] Apply to [facility] 100,000 6-14 area(s) 2 ity of unit/gram 00:00: (two) [place] powder 00 times Medical daily. Branch nystatin 2020-0 Yes [id number] Apply to [facility] 100,000 6-14 area(s) 2 ity of unit/gram 00:00: (two) [place] powder 00 times Medical daily. Branch nystatin 2020-0 Yes [id number] Apply to [facility] 100,000 6-14 area(s) 2 ity of unit/gram 00:00: (two) [place] powder 00 times Medical daily. Branch nystatin 2020-0 Yes [id number] Apply to [facility] 100,000 6-14 area(s) 2 ity of unit/gram 00:00: (two) [place] powder 00 times Medical daily. Branch KCL 20 Yes [id number] 100meq Take 75 mL [facility] mEq/15 mL 5-04 02 by mouth 2 ity of solution 00:00: (two) [place] 00 times Medical daily. Branch KCL Yes [id number] 100meq Take 75 mL [facility] mEq/15 mL 5-04 02 by mouth 2 ity of solution 00:00: (two) [place] 00 times Medical daily. Branch KCL 20 2- No [id number] 100meq Take 75 mL [facility] mEq/15 mL 5-04 -20 02 by mouth 2 ity of solution 00:00: 00:00 (two) [place] 00 :00 times Medical daily. Branch KCL 2021- No [id number] 100meq Take 75 mL [facility] mEq/15 mL 5-04 -20 02 by mouth 2 ity of solution 00:00: 00:00 (two) [place] 00 :00 times Medical daily. Branch KCL 20 2- No [id number] 100meq Take 75 mL [facility] mEq/15 mL 5-04 -20 02 by mouth 2 ity of solution 00:00: 00:00 (two) [place] 00 :00 times Medical daily. Branch KCL 20 2- No [id number] 100meq Take 75 mL [facility] mEq/15 mL 5-04 -20 02 by mouth 2 ity of solution 00:00: 00:00 (two) [place] 00 :00 times Medical daily. Branch aMILoride 5 2020-0 Yes 10mg Take 2 [facility] mg tablet 6-09 tablets by ity of 00:00: mouth [place] (two) Medical times Branch daily. aMILoride 5 2020-0 Yes 10mg Take 2 [facility] mg tablet 6-09 tablets by ity of 00:00: mouth [place] (two) Medical times Branch daily. aMILoride 5 2020-0 Yes 10mg Take 2 [facility] ers mg tablet 6-09 tablets by ity of 00:00: mouth [address] [place] [id number] (two) Medical times Branch daily. aMILoride 5 2020-0 Yes 10mg Take 2 [facility] mg tablet 6-09 tablets by ity of 00:00: mouth [address] [place] [id number] ([facility]) Medical times Branch daily. aMILoride 5 2020-0 Yes 10mg Take 2 [facility] mg tablet 6-09 tablets by ity of 00:00: mouth [address] [place] [id number] ([facility]) Medical times Branch daily. aMILoride 5 2020-0 Yes 10mg Take 2 [facility] mg tablet 6-09 tablets by ity of 00:00: mouth [address] [place] [id number] ([facility]) Medical times Branch daily. aMILoride 5 2020-0 Yes 10mg Take 2 [facility] ers mg tablet 6-09 tablets by ity of 00:00: mouth [address] [place] [id number] ([facility]) Medical times Branch daily. aMILoride 5 2020-0 Yes 10mg Take 2 [facility] ers mg tablet 6-09 tablets by ity of 00:00: mouth [address] [place] [id number] ([facility]) Medical times Branch daily. aMILoride 5 2020-0 Yes 10mg Take 2 [facility] mg tablet 6-09 tablets by ity of 00:00: mouth [address] [place] [id number] ([facility]) Medical times Branch daily. aMILoride 5 2020-0 Yes 10mg Take 2 [facility] mg tablet 6-09 tablets by ity of 00:00: mouth [address] [place] [id number] ([facility]) Medical times Branch daily. aMILoride 5 2020-0 Yes 10mg Take 2 [facility] ers mg tablet 6-09 tablets by ity of 00:00: mouth [address] [place] [id number] ([facility]) Medical times Branch daily. aMILoride 5 2020-0 Yes 10mg Take 2 [facility] mg tablet 6-09 tablets by ity of 00:00: mouth [address] [place] [id number] ([facility]) Medical times Branch daily. aMILoride 5 2020-0 Yes 10mg Take 2 [facility] mg tablet 6-09 tablets by ity of 00:00: mouth 2 [place] ([facility]) Medical times Branch daily. aMILoride 5 2020-0 Yes 10mg Take 2 [facility] mg tablet 6-09 tablets by ity of 00:00: mouth [address] [place] [id number] ([facility]) Medical times Branch daily. aMILoride 5 2020-0 Yes 10mg Take 2 [facility] mg tablet 6-09 tablets by ity of 00:00: mouth [place] (two) Medical times Branch daily. aMILoride 5 2020-0 Yes 10mg Take 2 [facility] mg tablet 6-09 tablets by ity of 00:00: mouth [address] [place] [address] (two) Medical times Branch daily. aMILoride 5 2020-0 Yes 10mg Take 2 [facility] mg tablet 6-09 tablets by ity of 00:00: mouth [address] [place] [id number] ([facility]) Medical times Branch daily. aMILoride 5 2020-0 Yes 10mg Take 2 [facility] ers mg tablet 6-09 tablets by ity of 00:00: mouth [address] [place] [id number] ([facility]) Medical times Branch daily. aMILoride 5 2020-0 Yes 10mg Take 2 [facility] ers mg tablet 6-09 tablets by ity of 00:00: mouth [address] [place] [id number] ([facility]) Medical times Branch daily. aMILoride 5 2020-0 Yes 10mg Take 2 [facility] ers mg tablet 6-09 tablets by ity of 00:00: mouth [address] [place] [id number] ([facility]) Medical times Branch daily. aMILoride 5 2020-0 Yes 10mg Take 2 [facility] ers mg tablet 6-09 tablets by ity of 00:00: mouth [address] [place] [id number] ([facility]) Medical times Branch daily. aMILoride 5 2020-0 Yes 10mg Take 2 [facility] ers mg tablet 6-09 tablets by ity of 00:00: mouth [address] [place] [id number] ([facility]) Medical times Branch daily. aMILoride 5 2020-0 Yes 10mg Take 2 [facility] ers mg tablet 6-09 tablets by ity of 00:00: mouth [address] [place] [id number] ([facility]) Medical times Branch daily. aMILoride 5 2020-0 Yes 10mg Take 2 [facility] ers mg tablet 6-09 tablets by ity of 00:00: mouth [address] [place] [id number] ([facility]) Medical times Branch daily. aMILoride 5 2020-0 Yes 10mg Take 2 [facility] ers mg tablet 6-09 tablets by ity of 00:00: mouth [address] [place] [id number] ([facility]) Medical times Branch daily. aMILoride 5 2020-0 Yes 10mg Take 2 [facility] mg tablet 6-09 tablets by ity of 00:00: mouth [place] (two) Medical times Branch daily. aMILoride 5 2020-0 Yes 10mg Take 2 [facility] mg tablet 6-09 tablets by ity of 00:00: mouth [place] (two) Medical times Branch daily. aMILoride 5 2020-0 Yes 10mg Take 2 [facility] mg tablet 6-09 tablets by ity of 00:00: mouth [place] (two) Medical times Branch daily. aMILoride 5 2020-0 Yes 10mg Take 2 [facility] ers mg tablet 6-09 tablets by ity of 00:00: mouth [place] (two) Medical times Branch daily. aMILoride 5 2020-0 Yes 10mg Take 2 [facility] ers mg tablet 6-09 tablets by ity of 00:00: mouth [address] [place] [id number] ([facility]) Medical times Branch daily. aMILoride 5 2020-0 Yes 10mg Take 2 [facility] ers mg tablet 6-09 tablets by ity of 00:00: mouth [address] [place] [id number] ([facility]) Medical times Branch daily. aMILoride 5 2020-0 Yes 10mg Take 2 [facility] ers mg tablet 6-09 tablets by ity of 00:00: mouth [place] ([facility]) Medical times Branch daily. aMILoride 5 2020-0 Yes 10mg Take 2 [facility] ers mg tablet 6-09 tablets by ity of 00:00: mouth [address] [place] [id number] ([facility]) Medical times Branch daily. aMILoride 5 2020-0 Yes 10mg Take 2 [facility] ers mg tablet 6-09 tablets by ity of 00:00: mouth [address] [place] [id number] ([facility]) Medical times Branch daily. aMILoride 5 2020-0 Yes 10mg Take 2 [facility] ers mg tablet 6-09 tablets by ity of 00:00: mouth [address] [place] [address] (two) Medical times Branch daily. aMILoride 5 2020-0 Yes 10mg Take 2 [facility] ers mg tablet 6-09 tablets by ity of 00:00: mouth [address] [place] [address] (two) Medical times Branch daily. aMILoride 5 2020-0 Yes 10mg Take 2 [facility] ers mg tablet 6-09 tablets by ity of 00:00: mouth [address] [place] [id number] (two) Medical times Branch daily. aMILoride 5 2020-0 Yes 10mg Take 2 [facility] mg tablet 6-09 tablets by ity of 00:00: mouth [address] [place] [address] (two) Medical times Branch daily. aMILoride 5 2020-0 Yes 10mg Take 2 [facility] ers mg tablet 6-09 tablets by ity of 00:00: mouth [address] [place] [address] (two) Medical times Branch daily. aMILoride 5 2020-0 Yes 10mg Take 2 [facility] ers mg tablet 6-09 tablets by ity of 00:00: mouth [address] [place] [address] (two) Medical times Branch daily. aMILoride 5 2020-0 Yes 10mg Take 2 [facility] mg tablet 6-09 tablets by ity of 00:00: mouth [address] [place] [address] (two) Medical times Branch daily. aMILoride 5 2020-0 Yes 10mg Take 2 [facility] mg tablet 6-09 tablets by ity of 00:00: mouth [address] [place] [address] (two) Medical times Branch daily. aMILoride 5 2020-0 Yes 10mg Take 2 [facility] mg tablet 6-09 tablets by ity of 00:00: mouth [address] [place] [id number] ([facility]) Medical times Branch daily. aMILoride 5 2020-0 Yes 10mg Take 2 [facility] mg tablet 6-09 tablets by ity of 00:00: mouth [address] [place] [id number] ([facility]) Medical times Branch daily. aMILoride 5 2020-0 Yes 10mg Take 2 [facility] ers mg tablet 6-09 tablets by ity of 00:00: mouth [address] [place] [id number] ([facility]) Medical times Branch daily. aMILoride 5 2020-0 Yes 10mg Take 2 [facility] ers mg tablet 6-09 tablets by ity of 00:00: mouth [address] [place] [id number] ([facility]) Medical times Branch daily. aMILoride 5 2020-0 Yes 10mg Take 2 [facility] ers mg tablet 6-09 tablets by ity of 00:00: mouth [address] [place] [id number] ([facility]) Medical times Branch daily. aMILoride 5 2020-0 Yes 10mg Take 2 [facility] mg tablet 6-09 tablets by ity of 00:00: mouth [address] [place] [address] (two) Medical times Branch daily. aMILoride 5 2020-0 Yes 10mg Take 2 [facility] mg tablet 6-09 tablets by ity of 00:00: mouth [address] [place] [address] (two) Medical times Branch daily. aMILoride 5 2020-0 Yes 10mg Take 2 [facility] ers mg tablet 6-09 tablets by ity of 00:00: mouth [address] [place] [address] (two) Medical times Branch daily. aMILoride 5 2020-0 Yes 10mg Take 2 [facility] ers mg tablet 6-09 tablets by ity of 00:00: mouth [address] [place] [address] (two) Medical times Branch daily. aMILoride 5 2020-0 Yes 10mg Take 2 [facility] ers mg tablet 6-09 tablets by ity of 00:00: mouth [address] [place] [address] ([facility]) Medical times Branch daily. aMILoride 5 2020-0 Yes 10mg Take 2 [facility] ers mg tablet 6-09 tablets by ity of 00:00: mouth [address] [place] [id number] ([facility]) Medical times Branch daily. aMILoride 5 2020-0 Yes 10mg Take 2 [facility] mg tablet 6-09 tablets by ity of 00:00: mouth [address] [place] [address] (two) Medical times Branch daily. aMILoride 5 2020-0 Yes 10mg Take 2 [facility] mg tablet 6-09 tablets by ity of 00:00: mouth [address] [place] [id number] ([facility]) Medical times Branch daily. aMILoride 5 2020-0 Yes 10mg Take 2 [facility] mg tablet 6-09 tablets by ity of 00:00: mouth [address] [place] [address] ([facility]) Medical times Branch daily. aMILoride 5 2020-0 Yes 10mg Take 2 [facility] ers mg tablet 6-09 tablets by ity of 00:00: mouth [address] [place] [address] ([facility]) Medical times Branch daily. aMILoride 5 2020-0 Yes 10mg Take 2 [facility] ers mg tablet 6-09 tablets by ity of 00:00: mouth [address] [place] [address] ([facility]) Medical times Branch daily. aMILoride 5 2020-0 Yes 10mg Take 2 [facility] mg tablet 6-09 tablets by ity of 00:00: mouth [address] [place] [address] ([facility]) Medical times Branch daily. aMILoride 5 2020-0 Yes 10mg Take 2 [facility] mg tablet 6-09 tablets by ity of 00:00: mouth [address] [place] [address] ([facility]) Medical times Branch daily. aMILoride 5 2020-0 Yes 10mg Take 2 [facility] mg tablet 6-09 tablets by ity of 00:00: mouth [address] [place] [address] ([facility]) Medical times Branch daily. aMILoride 5 2020-0 Yes 10mg Take 2 [facility] mg tablet 6-09 tablets by ity of 00:00: mouth [address] [place] [address] ([facility]) Medical times Branch daily. aMILoride 5 2020-0 Yes 10mg Take 2 [facility] mg tablet 6-09 tablets by ity of 00:00: mouth [address] [place] [address] ([facility]) Medical times Branch daily. aMILoride 5 2020-0 Yes 10mg Take 2 [facility] mg tablet 6-09 tablets by ity of 00:00: mouth [address] [place] [id number] 00 (two) Medical times Branch daily. aMILoride 5 2020-0 Yes 10mg Take 2 [facility] mg tablet 6-09 tablets by ity of 00:00: mouth [address] [place] [address] (two) Medical times Branch daily. aMILoride 5 2020-0 Yes 10mg Take 2 [facility] mg tablet 6-09 tablets by ity of 00:00: mouth [address] [place] [address] (two) Medical times Branch daily. aMILoride 5 2020-0 Yes 10mg Take 2 [facility] mg tablet 6-09 tablets by ity of 00:00: mouth [address] [place] [address] (two) Medical times Branch daily. aMILoride 5 2020-0 Yes 10mg Take 2 [facility] mg tablet 6-09 tablets by ity of 00:00: mouth [address] [place] [address] (two) Medical times Branch daily. aMILoride 5 2020-0 Yes 10mg Take 2 [facility] mg tablet 6-09 tablets by ity of 00:00: mouth [address] [place] [address] (two) Medical times Branch daily. aMILoride 5 2020-0 Yes 10mg Take 2 [facility] mg tablet 6-09 tablets by ity of 00:00: mouth [address] [place] [address] ([facility]) Medical times Branch daily. aMILoride 5 2020-0 Yes 10mg Take 2 [facility] mg tablet 6-09 tablets by ity of 00:00: mouth [address] [place] [address] ([facility]) Medical times Branch daily. aMILoride 5 2020-0 Yes 10mg Take 2 [facility] ers mg tablet 6-09 tablets by ity of 00:00: mouth [address] [place] [address] ([facility]) Medical times Branch daily. aMILoride 5 2020-0 Yes 10mg Take 2 [facility] mg tablet 6-09 tablets by ity of 00:00: mouth [address] [place] [address] (two) Medical times Branch daily. aMILoride 5 2020-0 Yes 10mg Take 2 [facility] mg tablet 6-09 tablets by ity of 00:00: mouth [address] [place] [address] (two) Medical times Branch daily. aMILoride 5 2020-0 Yes 10mg Take 2 [facility] mg tablet 6-09 tablets by ity of 00:00: mouth [address] [place] [address] (two) Medical times Branch daily. aMILoride 5 2020-0 Yes 10mg Take 2 [facility] mg tablet 6-09 tablets by ity of 00:00: mouth [address] [place] [address] (two) Medical times Branch daily. aMILoride 5 2020-0 Yes 10mg Take 2 [facility] mg tablet 6-09 tablets by ity of 00:00: mouth [address] [place] [id number] 00 (two) Medical times Branch daily. aMILoride 5 2020-0 Yes 10mg Take 2 [facility] mg tablet 6-09 tablets by ity of 00:00: mouth 2 [place] 00 (two) Medical times Branch daily. aMILoride 5 2020-0 Yes 10mg Take 2 [facility] mg tablet 6-09 tablets by ity of 00:00: mouth 2 [place] 00 (two) Medical times Branch daily. aMILoride 5 2020-0 Yes 10mg Take 2 [facility] mg tablet 6-09 tablets by ity of 00:00: mouth 2 [place] 00 (two) Medical times Branch daily. aMILoride 5 2020-0 Yes 10mg Take 2 [facility] mg tablet 6-09 tablets by ity of 00:00: mouth 2 [place] [address] ([facility]) Medical times Branch daily. aMILoride 5 2020-0 Yes 10mg Take 2 [facility] mg tablet 6-09 tablets by ity of 00:00: mouth 2 [place] [address] ([facility]) Medical times [place] daily. aMILoride 5 2020-0 Yes 10mg Take 2 [facility] mg tablet 6-09 tablets by ity of 00:00: mouth in [place] [address] the Medical morning Branch and 2 tablets in the evening. aMILoride 5 2020-0 Yes 10mg Take 2 [facility] mg tablet 6-09 tablets by ity of 00:00: mouth in [place] [address] the Medical morning Branch and 2 tablets in the evening. aMILoride 5 2020-0 Yes 10mg Take 2 [facility] mg tablet 6-09 tablets by ity of 00:00: mouth in [place] [address] the Medical morning Branch and 2 tablets in the evening. aMILoride 5 2020-0 Yes 10mg Take 2 [facility] mg tablet 6-09 tablets by ity of 00:00: mouth in [place] [address] the Medical morning Branch and 2 tablets in the evening. aMILoride 5 2020-0 Yes 10mg Take 2 [facility] mg tablet 6-09 tablets by ity of 00:00: mouth in [place] [address] the Medical morning Branch and 2 tablets in the evening. aMILoride 5 2020-0 Yes 10mg Take 2 [facility] mg tablet 6-09 tablets by ity of 00:00: mouth in [place] [address] the Medical morning Branch and 2 tablets in the evening. aMILoride 5 2020-0 Yes 10mg Take 2 [facility] mg tablet 6-09 tablets by ity of 00:00: mouth in [place] [address] the Medical morning Branch and 2 tablets in the evening. aMILoride 5 2020-0 Yes 10mg Take 2 [facility] mg tablet 6-09 tablets by ity of 00:00: mouth in [place] [address] the Medical morning Branch and 2 tablets in the evening. aMILoride 5 2020-0 Yes 10mg Take 2 [facility] mg tablet 6-09 tablets by ity of 00:00: mouth in [place] [address] the Medical morning Branch and 2 tablets in the evening. aMILoride 5 2020-0 Yes 10mg Take 2 [facility] mg tablet 6-09 tablets by ity of 00:00: mouth in [place] [address] the Medical morning Branch and 2 tablets in the evening. aMILoride 5 2020-0 Yes 10mg Take 2 [facility] mg tablet 6-09 tablets by ity of 00:00: mouth in [place] [address] the Medical morning Branch and 2 tablets in the evening. aMILoride 5 2020-0 Yes 10mg Take 2 [facility] mg tablet 6-09 tablets by ity of 00:00: mouth in [place] [address] the Medical morning Branch and 2 tablets in the evening. aMILoride 5 2020-0 Yes 10mg Take 2 [facility] mg tablet 6-09 tablets by ity of 00:00: mouth in [place] [address] the Medical morning Branch and 2 tablets in the evening. aMILoride 5 2020-0 Yes 10mg Take 2 [facility] mg tablet 6-09 tablets by ity of 00:00: mouth in [place] [address] the Medical morning Branch and 2 tablets in the evening. aMILoride 5 2020-0 Yes 10mg Take 2 [facility] mg tablet 6-09 tablets by ity of 00:00: mouth in [place] [address] the Medical morning Branch and 2 tablets in the evening. aMILoride 5 2020-0 Yes 10mg Take 2 [facility] mg tablet 6-09 tablets by ity of 00:00: mouth in [place] [address] the Medical morning Branch and 2 tablets in the evening. aMILoride 5 2020-0 Yes 10mg Take 2 [facility] mg tablet 6-09 tablets by ity of 00:00: mouth in [place] [address] the Medical morning Branch and 2 tablets in the evening. aMILoride 5 2020-0 Yes 10mg Take 2 [facility] mg tablet 6-09 tablets by ity of 00:00: mouth in [place] [address] the Medical morning Branch and 2 tablets in the evening. aMILoride 5 2020-0 Yes 10mg Take 2 [facility] mg tablet 6-09 tablets by ity of 00:00: mouth in [place] [address] the Medical morning Branch and 2 tablets in the evening. aMILoride 5 2020-0 Yes 10mg Take 2 [facility] mg tablet 6-09 tablets by ity of 00:00: mouth in [place] 00 the Medical morning Branch and 2 tablets in the evening. aMILoride 5 2020-0 Yes 10mg Take 2 [facility] mg tablet 6-09 tablets by ity of 00:00: mouth in [place] 00 the Medical morning Branch and 2 tablets in the evening. nitroglycer 2018-[address] 1 [facility] in 1-26 tablet ity of (NITROSTAT) 00:00: under the [place] 0.4 mg 00 tongue Medical sublingual every 5 Branch tablet (five) minutes as needed for Chest pain. nitroglycer 2018-[address] 1 [facility] in 1-26 tablet ity of (NITROSTAT) 00:00: under the [place] 0.4 mg 00 tongue Medical sublingual every 5 Branch tablet (five) minutes as needed for Chest pain. nitroglycer 2018-[address] 1 [facility] in -26 tablet ity of (NITROSTAT) 00:00: under the [place] 0.4 mg 00 tongue Medical sublingual every 5 Branch tablet (five) minutes as needed for Chest pain. nitroglycer 2018-[address] 1 [facility] in -26 tablet ity of (NITROSTAT) 00:00: under the [place] 0.4 mg 00 tongue Medical sublingual every 5 Branch tablet (five) minutes as needed for Chest pain. nitroglycer 2018-[address] 1 [facility] in 1-26 tablet ity of (NITROSTAT) 00:00: under the [place] 0.4 mg 00 tongue Medical sublingual every 5 Branch tablet (five) minutes as needed for Chest pain. nitroglycer 2018-[address] 1 [facility] in 1-26 tablet ity of (NITROSTAT) 00:00: under the [place] 0.4 mg 00 tongue Medical sublingual every 5 Branch tablet (five) minutes as needed for Chest pain. nitroglycer 2018-[address] 1 [facility] in 1-26 tablet ity of (NITROSTAT) 00:00: under the [place] 0.4 mg 00 tongue Medical sublingual every 5 Branch tablet (five) minutes as needed for Chest pain. nitroglycer 2018-[address] 1 [facility] in 1-26 tablet ity of (NITROSTAT) 00:00: under the [place] 0.4 mg 00 tongue Medical sublingual every 5 Branch tablet (five) minutes as needed for Chest pain. nitroglycer 2018-[address] 1 [facility] in 1-26 tablet ity of (NITROSTAT) 00:00: under the [place] 0.4 mg 00 tongue Medical sublingual every 5 Branch tablet (five) minutes as needed for Chest pain. nitroglycer 2018-[address] 1 [facility] in 1-26 tablet ity of (NITROSTAT) 00:00: under the [place] 0.4 mg 00 tongue Medical sublingual every 5 Branch tablet (five) minutes as needed for Chest pain. nitroglycer 2018-[address] 1 [facility] in 1-26 tablet ity of (NITROSTAT) 00:00: under the [place] 0.4 mg 00 tongue Medical sublingual every 5 Branch tablet (five) minutes as needed for Chest pain. nitroglycer 2018-[address] 1 [facility] in -26 tablet ity of (NITROSTAT) 00:00: under the [place] 0.4 mg 00 tongue Medical sublingual every 5 Branch tablet (five) minutes as needed for Chest pain. nitroglycer 2018-[address] 1 [facility] in 1-26 tablet ity of (NITROSTAT) 00:00: under the [place] 0.4 mg 00 tongue Medical sublingual every 5 Branch tablet (five) minutes as needed for Chest pain. nitroglycer 2018-[address] 1 [facility] vers in -26 tablet ity of (NITROSTAT) 00:00: under the [place] 0.4 mg 00 tongue Medical sublingual every 5 Branch tablet (five) minutes as needed for Chest pain. nitroglycer 2018-[address] 1 [facility] in 1-26 tablet ity of (NITROSTAT) 00:00: under the [place] 0.4 mg 00 tongue Medical sublingual every 5 Branch tablet (five) minutes as needed for Chest pain. nitroglycer 2018-[address] 1 [facility] in 1-26 tablet ity of (NITROSTAT) 00:00: under the [place] 0.4 mg 00 tongue Medical sublingual every 5 Branch tablet (five) minutes as needed for Chest pain. nitroglycer 2018-[address] 1 [facility] in 1-26 tablet ity of (NITROSTAT) 00:00: under the [place] 0.4 mg 00 tongue Medical sublingual every 5 Branch tablet (five) minutes as needed for Chest pain. nitroglycer 2018-[address] 1 [facility] in 1-26 tablet ity of (NITROSTAT) 00:00: under the [place] 0.4 mg 00 tongue Medical sublingual every 5 Branch tablet (five) minutes as needed for Chest pain. nitroglycer 2018-[address] 1 [facility] in 1-26 tablet ity of (NITROSTAT) 00:00: under the [place] 0.4 mg 00 tongue Medical sublingual every 5 Branch tablet (five) minutes as needed for Chest pain. nitroglycer 2018-[address] 1 [facility] in 1-26 tablet ity of (NITROSTAT) 00:00: under the [place] 0.4 mg 00 tongue Medical sublingual every 5 Branch tablet (five) minutes as needed for Chest pain. nitroglycer 2018-[address] 1 [facility] in 1-26 tablet ity of (NITROSTAT) 00:00: under the [place] 0.4 mg 00 tongue Medical sublingual every 5 Branch tablet (five) minutes as needed for Chest pain. nitroglycer 2018-[address] 1 [facility] in 1-26 tablet ity of (NITROSTAT) 00:00: under the [place] 0.4 mg 00 tongue Medical sublingual every 5 Branch tablet (five) minutes as needed for Chest pain. nitroglycer 2018-[address] 1 [facility] in 1-26 tablet ity of (NITROSTAT) 00:00: under the [place] 0.4 mg 00 tongue Medical sublingual every 5 Branch tablet (five) minutes as needed for Chest pain. nitroglycer 2018-[address] 1 [facility] in 1-26 tablet ity of (NITROSTAT) 00:00: under the [place] 0.4 mg 00 tongue Medical sublingual every 5 Branch tablet (five) minutes as needed for Chest pain. nitroglycer 2018-[address] 1 [facility] in 1-26 tablet ity of (NITROSTAT) 00:00: under the [place] 0.4 mg 00 tongue Medical sublingual every 5 Branch tablet (five) minutes as needed for Chest pain. nitroglycer 2018-[address] 1 [facility] in 1-26 tablet ity of (NITROSTAT) 00:00: under the [place] 0.4 mg 00 tongue Medical sublingual every 5 Branch tablet (five) minutes as needed for Chest pain. nitroglycer 2018-[address] 1 [facility] in 1-26 tablet ity of (NITROSTAT) 00:00: under the [place] 0.4 mg 00 tongue Medical sublingual every 5 Branch tablet (five) minutes as needed for Chest pain. nitroglycer 2018-[address] 1 [facility] in 1-26 tablet ity of (NITROSTAT) 00:00: under the [place] 0.4 mg 00 tongue Medical sublingual every 5 Branch tablet (five) minutes as needed for Chest pain. nitroglycer 2018-[address] 1 [facility] in -26 tablet ity of (NITROSTAT) 00:00: under the [place] 0.4 mg 00 tongue Medical sublingual every 5 Branch tablet (five) minutes as needed for Chest pain. nitroglycer 2018-[address] 1 [facility] in 1-26 tablet ity of (NITROSTAT) 00:00: under the [place] 0.4 mg 00 tongue Medical sublingual every 5 Branch tablet (five) minutes as needed for Chest pain. nitroglycer 2018-[address] 1 [facility] in 1-26 tablet ity of (NITROSTAT) 00:00: under the [place] 0.4 mg 00 tongue Medical sublingual every 5 Branch tablet (five) minutes as needed for Chest pain. nitroglycer 2018-[address] 1 [facility] in 1-26 tablet ity of (NITROSTAT) 00:00: under the [place] 0.4 mg 00 tongue Medical sublingual every 5 Branch tablet (five) minutes as needed for Chest pain. nitroglycer 2018-[address] 1 [facility] in 1-26 tablet ity of (NITROSTAT) 00:00: under the [place] 0.4 mg 00 tongue Medical sublingual every 5 Branch tablet (five) minutes as needed for Chest pain. nitroglycer 2018-[address] 1 [facility] in 07-18 tablet ity of (NITROSTAT) 00:00: under the [place] 0.4 mg 00 tongue Medical sublingual every 5 Branch tablet (five) minutes as needed for Chest pain. nitroglycer 2018-[address] 1 [facility] in 07-18 tablet ity of (NITROSTAT) 00:00: under the [place] 0.4 mg 00 tongue Medical sublingual every 5 Branch tablet (five) minutes as needed for Chest pain. nitroglycer 2018-[address] 1 [facility] in 07-18 tablet ity of (NITROSTAT) 00:00: under the [place] 0.4 mg 00 tongue Medical sublingual every 5 Branch tablet (five) minutes as needed for Chest pain. nitroglycer 2018-[address] 1 [facility] vers in 07-18 tablet ity of (NITROSTAT) 00:00: under the [place] 0.4 mg 00 tongue Medical sublingual every 5 Branch tablet (five) minutes as needed for Chest pain. nitroglycer 2018-[address] 1 [facility] in 07-18 tablet ity of (NITROSTAT) 00:00: under the [place] 0.4 mg 00 tongue Medical sublingual every 5 Branch tablet (five) minutes as needed for Chest pain. nitroglycer 2018-[address] 1 [facility] in 07-18 tablet ity of (NITROSTAT) 00:00: under the [place] 0.4 mg 00 tongue Medical sublingual every 5 Branch tablet (five) minutes as needed for Chest pain. nitroglycer 2018-[address] 1 [facility] vers in 07-18 tablet ity of (NITROSTAT) 00:00: under the [place] 0.4 mg 00 tongue Medical sublingual every 5 Branch tablet (five) minutes as needed for Chest pain. nitroglycer 2018-[address] 1 [facility] in 07-18 tablet ity of (NITROSTAT) 00:00: under the [place] 0.4 mg 00 tongue Medical sublingual every 5 Branch tablet (five) minutes as needed for Chest pain. nitroglycer 2018-06- No .4mg Place 1 [facility] in 07-18-03 tablet ity of (NITROSTAT) 00:00: 00:00 under the [place] 0.4 mg 00 :00 tongue Medical sublingual every 5 Branch tablet (five) minutes as needed for Chest pain. nitroglycer 2018-06- No .4mg Place 1 [facility] [place] in 07-18 tablet ity of (NITROSTAT) 00:00: 00:00 under the [place] 0.4 mg 00 :00 tongue Medical sublingual every 5 Branch tablet (five) minutes as needed for Chest pain. nitroglycer 2018-06- No .4mg Place 1 [facility] [place] in 07-18 tablet ity of (NITROSTAT) 00:00: 00:00 under the [place] 0.4 mg 00 :00 tongue Medical sublingual every 5 Branch tablet (five) minutes as needed for Chest pain. nitroglycer 2018-06- No .4mg Place 1 [facility] [place] in 07-18 tablet ity of (NITROSTAT) 00:00: 00:00 under the [place] 0.4 mg 00 :00 tongue Medical sublingual every 5 Branch tablet (five) minutes as needed for Chest pain. nitroglycer 2018-06- No .4mg Place 1 [facility] [place] in 07-18 tablet ity of (NITROSTAT) 00:00: 00:00 under the [place] 0.4 mg 00 :00 tongue Medical sublingual every 5 Branch tablet (five) minutes as needed for Chest pain. nitroglycer 2018-06- No .4mg Place 1 [facility] [place] in 07-18 tablet ity of (NITROSTAT) 00:00: 00:00 under the [place] 0.4 mg 00 :00 tongue Medical sublingual every 5 Branch tablet (five) minutes as needed for Chest pain. polyethylen 2019-0 Yes [id number] 17g Take 17 g [facility] glycol 8-06 by mouth ity of (MIRALAX) 00:00: daily. [place] Medical gram/dose Branch powder polyethylen 2019-0 Yes [id number] 17g Take 17 g [facility] glycol 8-06 by mouth ity of (MIRALAX) 00:00: daily. [place] Medical gram/dose Branch powder polyethylen 2019-0 Yes [id number] 17g Take 17 g [facility] glycol 8-06 by mouth ity of (MIRALAX) 00:00: daily. 00 Medical gram/dose Branch powder polyethylen 2019-0 Yes [id number] 17g Take 17 g [facility] glycol 8-06 by mouth ity of (MIRALAX) 00:00: daily. [place] Medical gram/dose Branch powder polyethylen 2019-0 Yes [id number] 17g Take 17 g [facility] glycol 8-06 by mouth ity of (MIRALAX) 00:00: daily. [place] Medical gram/dose Branch powder polyethylen 2019-0 Yes [id number] 17g Take 17 g [facility] glycol 8-06 by mouth ity of (MIRALAX) 00:00: daily. [place] Medical gram/dose Branch powder polyethylen 2019-0 Yes [id number] 17g Take 17 g [facility] glycol 8-06 by mouth ity of (MIRALAX) 00:00: daily. [place] Medical gram/dose Branch powder polyethylen 2019-0 Yes [id number] 17g Take 17 g [facility] glycol 8-06 by mouth ity of (MIRALAX) 00:00: daily. [place] Medical gram/dose Branch powder polyethylen 2019-0 Yes [id number] 17g Take 17 g [facility] glycol 8-06 by mouth ity of (MIRALAX) 00:00: daily. [place] Medical gram/dose Branch powder polyethylen 2019-0 Yes [id number] 17g Take 17 g [facility] glycol 8-06 by mouth ity of (MIRALAX) 00:00: daily. [place] Medical gram/dose Branch powder polyethylen 2019-0 Yes [id number] 17g Take 17 g [facility] glycol 8-06 by mouth ity of (MIRALAX) 00:00: daily. [place] Medical gram/dose Branch powder polyethylen 2019-0 Yes [id number] 17g Take 17 g [facility] glycol 8-06 by mouth ity of (MIRALAX) 00:00: daily. [place] Medical gram/dose Branch powder polyethylen 2019-0 Yes [id number] 17g Take 17 g [facility] glycol 8-06 by mouth ity of (MIRALAX) 00:00: daily. [place] Medical gram/dose Branch powder polyethylen 2019-0 Yes [id number] 17g Take 17 g [facility] glycol 8-06 by mouth ity of (MIRALAX) 00:00: daily. [place] Medical gram/dose Branch powder polyethylen 2019-0 Yes [id number] 17g Take 17 g [facility] glycol 8-06 by mouth ity of (MIRALAX) 00:00: daily. [place] Medical gram/dose Branch powder polyethylen 2019-0 Yes [id number] 17g Take 17 g [facility] glycol 8-06 by mouth ity of (MIRALAX) 00:00: daily. [place] Medical gram/dose Branch powder polyethylen 2019-0 Yes [id number] 17g Take 17 g [facility] glycol 8-06 by mouth ity of (MIRALAX) 00:00: daily. [place] Medical gram/dose Branch powder polyethylen 2019-0 Yes [id number] 17g Take 17 g [facility] glycol 8-06 by mouth ity of (MIRALAX) 00:00: daily. [place] Medical gram/dose Branch powder polyethylen 2019-0 Yes [id number] 17g Take 17 g [facility] glycol 8-06 by mouth ity of (MIRALAX) 00:00: daily. [place] Medical gram/dose Branch powder polyethylen 2019-0 Yes [id number] 17g Take 17 g [facility] glycol 8-06 by mouth ity of (MIRALAX) 00:00: daily. [place] Medical gram/dose Branch powder polyethylen 2019-0 Yes [id number] 17g Take 17 g [facility] glycol 8-06 by mouth ity of (MIRALAX) 00:00: daily. [place] Medical gram/dose Branch powder polyethylen 2019-0 Yes [id number] 17g Take 17 g [facility] glycol 8-06 by mouth ity of (MIRALAX) 00:00: daily. [place] Medical gram/dose Branch powder polyethylen 2019-0 Yes [id number] 17g Take 17 g [facility] glycol 8-06 by mouth ity of (MIRALAX) 00:00: daily. [place] Medical gram/dose Branch powder polyethylen 2019-0 Yes [id number] 17g Take 17 g [facility] glycol 8-06 by mouth ity of (MIRALAX) 00:00: daily. [place] Medical gram/dose Branch powder polyethylen 2019-0 Yes [id number] 17g Take 17 g [facility] glycol 8-06 by mouth ity of (MIRALAX) 00:00: daily. [place] Medical gram/dose Branch powder polyethylen 2019-0 Yes [id number] 17g Take 17 g [facility] glycol 8-06 by mouth ity of (MIRALAX) 00:00: daily. [place] Medical gram/dose Branch powder polyethylen 2019-0 Yes [id number] 17g Take 17 g [facility] glycol 8-06 by mouth ity of (MIRALAX) 00:00: daily. [place] Medical gram/dose Branch powder polyethylen 2019-0 Yes [id number] 17g Take 17 g [facility] glycol 8-06 by mouth ity of (MIRALAX) 00:00: daily. [place] Medical gram/dose Branch powder polyethylen 2019-0 Yes [id number] 17g Take 17 g [facility] glycol 8-06 by mouth ity of (MIRALAX) 00:00: daily. [place] Medical gram/dose Branch powder polyethylen 2019-0 Yes [id number] 17g Take 17 g [facility] glycol 8-06 by mouth ity of (MIRALAX) 00:00: daily. [place] Medical gram/dose Branch powder polyethylen 2019-0 Yes [id number] 17g Take 17 g [facility] glycol 8-06 by mouth ity of (MIRALAX) 00:00: daily. [place] Medical gram/dose Branch powder polyethylen 2019-0 Yes [id number] 17g Take 17 g [facility] glycol 8-06 by mouth ity of (MIRALAX) 00:00: daily. [place] Medical gram/dose Branch powder polyethylen 2019-0 Yes [id number] 17g Take 17 g [facility] glycol 8-06 by mouth ity of (MIRALAX) 00:00: daily. [place] Medical gram/dose Branch powder polyethylen 2019-0 Yes [id number] 17g Take 17 g [facility] glycol 8-06 by mouth ity of (MIRALAX) 00:00: daily. [place] Medical gram/dose Branch powder polyethylen 2019-0 Yes [id number] 17g Take 17 g [facility] glycol 8-06 by mouth ity of (MIRALAX) 00:00: daily. [place] Medical gram/dose Branch powder polyethylen 2019-0 Yes [id number] 17g Take 17 g [facility] glycol 8-06 by mouth ity of (MIRALAX) 00:00: daily. [place] Medical gram/dose Branch powder polyethylen 2019-0 Yes [id number] 17g Take 17 g [facility] glycol 8-06 by mouth ity of (MIRALAX) 00:00: daily. [place] Medical gram/dose Branch powder polyethylen 2019-0 Yes [id number] 17g Take 17 g [facility] glycol 8-06 by mouth ity of (MIRALAX) 00:00: daily. [place] Medical gram/dose Branch powder polyethylen 2019-0 Yes [id number] 17g Take 17 g [facility] glycol 8-06 by mouth ity of (MIRALAX) 00:00: daily. [place] Medical gram/dose Branch powder polyethylen 2019-0 Yes [id number] 17g Take 17 g [facility] glycol 8-06 by mouth ity of (MIRALAX) 00:00: daily. [place] Medical gram/dose Branch powder polyethylen 2019-0 Yes [id number] 17g Take 17 g [facility] glycol 8-06 by mouth ity of (MIRALAX) 00:00: daily. [place] Medical gram/dose Branch powder polyethylen 2019-0 Yes [id number] 17g Take 17 g [facility] glycol 8-06 by mouth ity of (MIRALAX) 00:00: daily. [place] Medical gram/dose Branch powder polyethylen 2019-0 Yes [id number] 17g Take 17 g [facility] glycol 8-06 by mouth ity of (MIRALAX) 00:00: daily. [place] Medical gram/dose Branch powder polyethylen 2019-0 Yes [id number] 17g Take 17 g [facility] glycol 8-06 by mouth ity of (MIRALAX) 00:00: daily. [place] Medical gram/dose Branch powder polyethylen 2019-0 Yes [id number] 17g Take 17 g [facility] glycol 8-06 by mouth ity of (MIRALAX) 00:00: daily. [place] Medical gram/dose Branch powder polyethylen 2019-0 Yes [id number] 17g Take 17 g [facility] glycol 8-06 by mouth ity of (MIRALAX) 00:00: daily. [place] Medical gram/dose Branch powder polyethylen 2019-0 Yes [id number] 17g Take 17 g [facility] glycol 8-06 by mouth ity of (MIRALAX) 00:00: daily. [place] Medical gram/dose Branch powder polyethylen 2019-0 Yes [id number] 17g Take 17 g [facility] glycol 8-06 by mouth ity of (MIRALAX) 00:00: daily. [place] Medical gram/dose Branch powder polyethylen 2019-0 Yes [id number] 17g Take 17 g [facility] glycol 8-06 by mouth ity of (MIRALAX) 00:00: daily. [place] Medical gram/dose Branch powder polyethylen 2019-0 Yes [id number] 17g Take 17 g [facility] glycol 8-06 by mouth ity of (MIRALAX) 00:00: daily. [place] Medical gram/dose Branch powder polyethylen 2019-0 Yes [id number] 17g Take 17 g [facility] glycol 8-06 by mouth ity of (MIRALAX) 00:00: daily. [place] Medical gram/dose Branch powder polyethylen 2019-0 Yes [id number] 17g Take 17 g [facility] glycol 8-06 by mouth ity of (MIRALAX) 00:00: daily. [place] Medical gram/dose Branch powder polyethylen 2019-0 Yes [id number] 17g Take 17 g [facility] glycol 8-06 by mouth ity of (MIRALAX) 00:00: daily. [place] Medical gram/dose Branch powder polyethylen 2019-0 Yes [id number] 17g Take 17 g [facility] glycol 8-06 by mouth ity of (MIRALAX) 00:00: daily. [place] Medical gram/dose Branch powder polyethylen 2019-0 Yes [id number] 17g Take 17 g [facility] glycol 8-06 by mouth ity of (MIRALAX) 00:00: daily. [place] Medical gram/dose Branch powder polyethylen 2019-0 Yes [id number] 17g Take 17 g [facility] glycol 8-06 by mouth ity of (MIRALAX) 00:00: daily. [place] Medical gram/dose Branch powder polyethylen 2019-0 Yes [id number] 17g Take 17 g [facility] glycol 8-06 by mouth ity of (MIRALAX) 00:00: daily. [place] Medical gram/dose Branch powder polyethylen 2019-0 Yes [id number] 17g Take 17 g [facility] glycol 8-06 by mouth ity of (MIRALAX) 00:00: daily. [place] Medical gram/dose Branch powder polyethylen 2019-0 Yes [id number] 17g Take 17 g [facility] glycol 8-06 by mouth ity of (MIRALAX) 00:00: daily. [place] Medical gram/dose Branch powder polyethylen 2019-0 Yes [id number] 17g Take 17 g [facility] glycol 8-06 by mouth ity of (MIRALAX) 00:00: daily. [place] Medical gram/dose Branch powder polyethylen 2019-0 Yes [id number] 17g Take 17 g [facility] glycol 8-06 by mouth ity of (MIRALAX) 00:00: daily. [place] Medical gram/dose Branch powder polyethylen 2019-0 Yes [id number] 17g Take 17 g [facility] glycol 8-06 by mouth ity of (MIRALAX) 00:00: daily. [place] Medical gram/dose Branch powder polyethylen 2019-0 Yes [id number] 17g Take 17 g [facility] glycol 8-06 by mouth ity of (MIRALAX) 00:00: daily. [place] Medical gram/dose Branch powder polyethylen 2019-0 Yes [id number] 17g Take 17 g [facility] glycol 8-06 by mouth ity of (MIRALAX) 00:00: daily. [place] Medical gram/dose Branch powder polyethylen 2019-0 Yes [id number] 17g Take 17 g [facility] glycol 8-06 by mouth ity of (MIRALAX) 00:00: daily. [place] Medical gram/dose Branch powder polyethylen 2019-0 Yes [id number] 17g Take 17 g [facility] glycol 8-06 by mouth ity of (MIRALAX) 00:00: daily. [place] Medical gram/dose Branch powder polyethylen 2019-0 Yes [id number] 17g Take 17 g [facility] glycol 8-06 by mouth ity of (MIRALAX) 00:00: daily. [place] Medical gram/dose Branch powder polyethylen 2019-0 Yes [id number] 17g Take 17 g [facility] glycol 8-06 by mouth ity of (MIRALAX) 00:00: daily. [place] 17 00 Medical gram/dose Branch powder polyethylen 2019-0 Yes [id number] 17g Take 17 g [facility] glycol 8-06 by mouth ity of (MIRALAX) 00:00: daily. [place] Medical gram/dose Branch powder polyethylen 2019-0 Yes [id number] 17g Take 17 g [facility] glycol 8-06 by mouth ity of (MIRALAX) 00:00: daily. [place] Medical gram/dose Branch powder polyethylen 2019-0 Yes [id number] 17g Take 17 g [facility] glycol 8-06 by mouth ity of (MIRALAX) 00:00: daily. [place] Medical gram/dose Branch powder polyethylen 2019-0 Yes [id number] 17g Take 17 g [facility] glycol 8-06 by mouth ity of (MIRALAX) 00:00: daily. [place] Medical gram/dose Branch powder polyethylen 2019-0 Yes [id number] 17g Take 17 g [facility] glycol 8-06 by mouth ity of (MIRALAX) 00:00: daily. [place] Medical gram/dose Branch powder polyethylen 2019-0 Yes [id number] 17g Take 17 g [facility] glycol 8-06 by mouth ity of (MIRALAX) 00:00: daily. [place] Medical gram/dose Branch powder polyethylen 2019-0 Yes [id number] 17g Take 17 g [facility] glycol 8-06 by mouth ity of (MIRALAX) 00:00: daily. [place] Medical gram/dose Branch powder polyethylen 2019-0 Yes [id number] 17g Take 17 g [facility] glycol 8-06 by mouth ity of (MIRALAX) 00:00: daily. [place] Medical gram/dose Branch powder polyethylen 2019-0 Yes [id number] 17g Take 17 g [facility] glycol 8-06 by mouth ity of (MIRALAX) 00:00: daily. [place] [facility] gram/dose Branch powder polyethylen 2019-0 Yes [id number] 17g Take 17 g [facility] glycol 8-06 by mouth ity of (MIRALAX) 00:00: daily. [place] Medical gram/dose Branch powder polyethylen 2019-0 Yes [id number] 17g Take 17 g [facility] glycol 8-06 by mouth ity of (MIRALAX) 00:00: daily. [place] Medical gram/dose Branch powder polyethylen 2019-0 Yes [id number] 17g Take 17 g [facility] glycol 8-06 by mouth ity of (MIRALAX) 00:00: daily. [place] Medical gram/dose Branch powder polyethylen 2019-0 Yes [id number] 17g Take 17 g [facility] glycol 8-06 by mouth ity of (MIRALAX) 00:00: daily. [place] [facility] gram/dose Branch powder polyethylen 2019-0 Yes [id number] 17g Take 17 g [facility] glycol 8-06 by mouth ity of (MIRALAX) 00:00: daily. [place] [facility] gram/dose Branch powder polyethylen 2019-0 Yes [id number] 17g Take 17 g [facility] glycol 8-06 by mouth ity of (MIRALAX) 00:00: daily. [facility] gram/dose Branch powder polyethylen 2019-0 Yes [id number] 17g Take 17 g [facility] glycol 8-06 by mouth [facility]y of ([facility]AL[facility]) 00:00: daily. [place] [facility] gram/dose Branch powder polyethylen 2019-0 Yes [id number] 17g Take 17 g [facility] glycol 8-06 by mouth ity of ([facility]ALAX) 00:00: daily. [place] [facility] gram/dose Branch powder polyethylen 2019-0 Yes [id number] 17g Take 17 g [facility] glycol 8-06 by mouth ity of ([facility]ALAX) 00:00: daily. [place] [facility] gram/dose Branch powder polyethylen 2019-0 Yes [id number] 17g Take 17 g [facility] glycol 8-06 by mouth ity of ([facility]ALAX) 00:00: daily. [place] [facility] gram/dose Branch powder polyethylen 2019-0 Yes [id number] 17g Take 17 g [facility] glycol 8-06 by mouth ity of ([facility]AX) 00:00: daily. [place] [facility] gram/dose Branch powder polyethylen 2019-0 Yes [id number] 17g Take 17 g [facility] glycol 8-06 by mouth ity of ([facility]ALAX) 00:00: daily. [place] [facility] gram/dose Branch powder polyethylen 2019-0 Yes [id number] 17g Take 17 g [facility] glycol 8-06 by mouth ity of ([facility]ALAX) 00:00: daily. [place] [facility] gram/dose Branch powder polyethylen 2019-0 Yes [id number] 17g Take 17 g [facility] glycol 8-06 by mouth ity of ([facility]ALAX) 00:00: daily. [place] [facility] gram/dose Branch powder polyethylen 2019-0 Yes [id number] 17g Take 17 g [facility] glycol 8-06 by mouth ity of ([facility]ALAX) 00:00: daily. [place] [facility] gram/dose Branch powder polyethylen 2019-0 Yes [id number] 17g Take 17 g [facility] glycol 8-06 by mouth ity of ([facility]ALAX) 00:00: daily. [place] [facility] gram/dose Branch powder polyethylen 2019-0 Yes [id number] 17g Take 17 g [facility] glycol 8-06 by mouth ity of ([facility]ALAX) 00:00: daily. [place] [facility] gram/dose Branch powder polyethylen 2019-0 Yes [id number] 17g Take 17 g [facility] glycol 8-06 by mouth ity of ([facility]ALAX) 00:00: daily. [place] [facility] gram/dose Branch powder polyethylen 2019-0 Yes [id number] 17g Take 17 g [facility] glycol 8-06 by mouth ity of ([facility]) 00:00: daily. [place] [facility] gram/dose Branch powder polyethylen 2019-0 Yes [id number] 17g Take 17 g [facility] glycol 8-06 by mouth ity of ([facility]AX) 00:00: daily. [place] [facility] gram/dose Branch powder polyethylen 2019-0 Yes [id number] 17g Take 17 g [facility] glycol 8-06 by mouth ity of ([facility]) 00:00: daily. [place] [facility] gram/dose Branch powder polyethylen 2019-0 Yes [id number] 17g Take 17 g [facility] glycol 8-06 by mouth ity of ([facility]) 00:00: daily. [place] [facility] gram/dose Branch powder polyethylen 2019-0 Yes [id number] 17g Take 17 g [facility] glycol 8-06 by mouth ity of ([facility]) 00:00: daily. [place] [facility] gram/dose Branch powder polyethylen 2019-0 Yes [id number] 17g Take 17 g [facility] glycol 8-06 by mouth ity of ([facility]) 00:00: daily. Medical gram/dose Branch powder polyethylen 2019-0 Yes [id number] 17g Take 17 g [facility] glycol 8-06 by mouth ity of ([facility]ALAX) 00:00: daily. Medical gram/dose Branch powder polyethylen 2019-0 Yes [id number] 17g Take 17 g [facility] glycol 8-06 by mouth ity of ([facility]ALAX) 00:00: daily. [facility] gram/dose Branch powder ferrous 2019-0 Yes [id number] 325mg Take 1 [facility] [place] sulfate 5-17 tablet by [facility]y of (IR[facility]) 325 00:00: mouth [facility] [place] ([place] mg 00 (three) [facility] iron) times Branch tablet daily with meals. ferrous 0 Yes [id number] 325mg Take 1 [facility] [place] sulfate 5-17 tablet by [facility]y of (IRON) 325 00:00: mouth [facility] [place] [facility] ([place] mg 00 (three) [facility] iron) times Branch tablet daily with meals. ferrous Yes [id number] 325mg Take 1 [facility] [place] sulfate 5-17 tablet by [facility] of (IRON) 325 00:00: mouth [facility] [place] [facility] ([place] mg 00 (three) [facility] iron) times Branch tablet daily with meals. ferrous 2018-0 Yes [id number] 325mg Take 1 [facility] [place] sulfate 5-17 tablet by [facility]y of (IRON) 325 00:00: mouth 3 [place] [facility] ([place] mg 00 (three) Medical iron) times Branch tablet daily with meals. ferrous 2019-0 Yes [id number] 325mg Take 1 [facility] [place] sulfate 5-17 tablet by [facility]y of (IRON) 325 00:00: mouth 3 [place] [facility] ([place] mg 00 (three) Medical iron) times Branch tablet daily with meals. ferrous 2018-0 Yes [id number] 325mg Take 1 [facility] [place] sulfate 5-17 tablet by [facility]y of (IRON) 325 00:00: mouth 3 [place] [facility] ([place] mg 00 (three) Medical iron) times Branch tablet daily with meals. ferrous 2019-0 Yes [id number] 325mg Take 1 [facility] [place] sulfate 5-17 tablet by [facility] of (IRON) 325 00:00: mouth 3 [place] [facility] ([place] mg 00 (three) Medical iron) times Branch tablet daily with meals. ferrous 2019-0 Yes [id number] 325mg Take 1 [facility] [place] sulfate 5-17 tablet by [facility]y of (IRON) 325 00:00: mouth 3 [place] [facility] ([place] mg 00 (three) Medical iron) times Branch tablet daily with meals. ferrous 2019-0 Yes [id number] 325mg Take 1 [facility] [place] sulfate 5-17 tablet by [facility] of (IRON) 325 00:00: mouth 3 [place] [facility] ([place] mg 00 (three) Medical iron) times Branch tablet daily with meals. ferrous 2019-0 Yes [id number] 325mg Take 1 [facility] [place] sulfate 5-17 tablet by [facility]y of (IRON) 325 00:00: mouth 3 [place] ([place] mg 00 (three) Medical iron) times Branch tablet daily with meals. ferrous 2019-0 Yes [id number] 325mg Take 1 [facility] [place] sulfate 5-17 tablet by [facility] of (IRON) 325 00:00: mouth 3 [place] mg ([place] mg 00 (three) Medical iron) times Branch tablet daily with meals. ferrous 2019-0 Yes [id number] 325mg Take 1 [facility] [place] sulfate 5-17 tablet by [facility] of (IRON) 325 00:00: mouth 3 [place] [facility] ([place] mg 00 (three) Medical iron) times Branch tablet daily with meals. ferrous 2019-0 Yes [id number] 325mg Take 1 [facility] [place] sulfate 5-17 tablet by [facility] of (IRON) 325 00:00: mouth [facility] [place] [facility] ([place] mg 00 (three) Medical iron) times Branch tablet daily with meals. ferrous 2019-0 Yes [id number] 325mg Take 1 [facility] [place] sulfate 5-17 tablet by [facility]y of (IRON) 325 00:00: mouth 3 [place] ([place] mg 00 (three) Medical iron) times Branch tablet daily with meals. ferrous 2019-0 Yes [id number] 325mg Take 1 [facility] [place] sulfate 5-17 tablet by [facility] of (IRON) 325 00:00: mouth 3 [place] [facility] ([place] mg 00 (three) Medical iron) times Branch tablet daily with meals. ferrous 2019-0 Yes [id number] 325mg Take 1 [facility] [place] sulfate 5-17 tablet by [facility] of (IRON) 325 00:00: mouth 3 [place] [facility] ([place] mg 00 (three) Medical iron) times Branch tablet daily with meals. ferrous 2019-0 Yes [id number] 325mg Take 1 [facility] [place] sulfate 5-17 tablet by [facility]y of (IRON) 325 00:00: mouth 3 [place] mg ([place] mg 00 (three) Medical iron) times Branch tablet daily with meals. ferrous 2019-0 Yes [id number] 325mg Take 1 [facility] [place] sulfate 5-17 tablet by [facility] of (IRON) 325 00:00: mouth [facility] [place] [facility] ([place] mg 00 (three) Medical iron) times Branch tablet daily with meals. ferrous 2019-0 Yes [id number] 325mg Take 1 [facility] [place] sulfate 5-17 tablet by [facility]y of (IRON) 325 00:00: mouth 3 [place] [facility] ([place] mg 00 (three) Medical iron) times Branch tablet daily with meals. ferrous 2019-0 Yes [id number] 325mg Take 1 [facility] [place] sulfate 5-17 tablet by [facility]y of (IRON) 325 00:00: mouth 3 [place] [facility] ([place] mg 00 (three) Medical iron) times Branch tablet daily with meals. ferrous 2019-0 Yes [id number] 325mg Take 1 [facility] [place] sulfate 5-17 tablet by [facility]y of (IRON) 325 00:00: mouth [place] [facility] ([place] mg 00 (three) Medical iron) times Branch tablet daily with meals. ferrous 2019-0 Yes [id number] 325mg Take 1 [facility] [place] sulfate 5-17 tablet by [facility]y of (IRON) 325 00:00: mouth [facility] [place] [facility] ([place] mg 00 (three) Medical iron) times Branch tablet daily with meals. ferrous 2019-0 Yes [id number] 325mg Take 1 [facility] [place] sulfate 5-17 tablet by [facility]y of (IRON) 325 00:00: mouth [place] ([place] mg 00 (three) Medical iron) times Branch tablet daily with meals. ferrous 2019-0 Yes [id number] 325mg Take 1 [facility] [place] sulfate 5-17 tablet by [facility]y of (IRON) 325 00:00: mouth [facility] [place] [facility] ([place] mg 00 (three) Medical iron) times Branch tablet daily with meals. ferrous 2019-0 Yes [id number] 325mg Take 1 [facility] [place] sulfate 5-17 tablet by [facility] of (IRON) 325 00:00: mouth [facility] [place] [facility] ([place] mg 00 (three) Medical iron) times Branch tablet daily with meals. ferrous 2019-0 Yes [id number] 325mg Take 1 [facility] [place] sulfate 5-17 tablet by [facility]y of (IRON) 325 00:00: mouth [facility] [place] [facility] ([place] mg 00 (three) Medical iron) times Branch tablet daily with meals. ferrous 2019-0 Yes [id number] 325mg Take 1 [facility] [place] 5-17 tablet by [facility]y of (IRON) 325 00:00: mouth 3 [place] [facility] ([place] mg 00 (three) Medical iron) times Branch tablet daily with meals. ferrous 2019-0 Yes [id number] 325mg Take 1 [facility] [place] sulfate 5-17 tablet by [facility]y of (IRON) 325 00:00: mouth [facility] [place] [facility] ([place] mg 00 (three) Medical iron) times Branch tablet daily with meals. ferrous 2019-0 Yes [id number] 325mg Take 1 [facility] [place] 5-17 tablet by [facility] of (IRON) 325 00:00: mouth 3 [place] [facility] ([place] mg 00 (three) Medical iron) times Branch tablet daily with meals. ferrous 2019-0 Yes [id number] 325mg Take 1 [facility] [place] sulfate 5-17 tablet by [facility]y of (IRON) 325 00:00: mouth [place] [facility] ([place] mg 00 (three) Medical iron) times Branch tablet daily with meals. ferrous 2019-0 Yes [id number] 325mg Take 1 [facility] [place] sulfate 5-17 tablet by [facility]y of (IRON) 325 00:00: mouth [facility] [place] [facility] ([place] mg 00 (three) Medical iron) times Branch tablet daily with meals. ferrous 2019-0 Yes [id number] 325mg Take 1 [facility] [place] sulfate 5-17 tablet by [facility]y of (IRON) 325 00:00: mouth [facility] [place] [facility] ([place] mg 00 (three) Medical iron) times Branch tablet daily with meals. ferrous 2019-0 Yes [id number] 325mg Take 1 [facility] [place] sulfate 5-17 tablet by [facility]y of (IRON) 325 00:00: mouth [facility] [place] [facility] ([place] mg 00 (three) Medical iron) times Branch tablet daily with meals. ferrous 2019-0 Yes [id number] 325mg Take 1 [facility] [place] sulfate 5-17 tablet by [facility]y of (IRON) 325 00:00: mouth [facility] [place] [facility] ([place] mg 00 (three) Medical iron) times Branch tablet daily with meals. ferrous 2019-0 Yes [id number] 325mg Take 1 [facility] [place] sulfate 5-17 tablet by [facility]y of (IRON) 325 00:00: mouth [facility] [place] [facility] ([place] mg 00 (three) Medical iron) times Branch tablet daily with meals. ferrous 2019-0 Yes [id number] 325mg Take 1 [facility] [place] sulfate 5-17 tablet by [facility]y of (IRON) 325 00:00: mouth [facility] [place] [facility] ([place] mg 00 (three) Medical iron) times Branch tablet daily with meals. ferrous 2019-0 Yes [id number] 325mg Take 1 [facility] [place] sulfate 5-17 tablet by [facility]y of (IRON) 325 00:00: mouth [facility] [place] [facility] ([place] mg 00 (three) Medical iron) times Branch tablet daily with meals. ferrous 2019-0 Yes [id number] 325mg Take 1 [facility] [place] sulfate 5-17 tablet by ity of (IRON) 325 00:00: mouth [facility] [place] [facility] ([place] mg 00 (three) Medical iron) times Branch tablet daily with meals. ferrous 2019-0 Yes [id number] 325mg Take 1 [facility] [place] sulfate 5-17 tablet by ity of (IRON) 325 00:00: mouth 3 [place] [facility] ([place] mg 00 (three) Medical iron) times Branch tablet daily with meals. ferrous 2019-0 Yes [id number] 325mg Take 1 [facility] [place] sulfate 5-17 tablet by ity of (IRON) 325 00:00: mouth 3 [place] [facility] ([place] mg 00 (three) Medical iron) times Branch tablet daily with meals. ferrous 2019-0 Yes [id number] 325mg Take 1 [facility] [place] sulfate 5-17 tablet by ity of (IRON) 325 00:00: mouth 3 [place] [facility] ([place] mg 00 (three) Medical iron) times Branch tablet daily with meals. ferrous 2019-0 Yes [id number] 325mg Take 1 [facility] [place] sulfate 5-17 tablet by ity of (IRON) 325 00:00: mouth 3 [place] [facility] ([place] mg 00 (three) Medical iron) times Branch tablet daily with meals. ferrous 2019-0 Yes [id number] 325mg Take 1 [facility] [place] sulfate 5-17 tablet by ity of (IRON) 325 00:00: mouth 3 [place] mg ([place] mg 00 (three) Medical iron) times Branch tablet daily with meals. ferrous 2019-0 Yes [id number] 325mg Take 1 [facility] [place] sulfate 5-17 tablet by ity of (IRON) 325 00:00: mouth 3 [place] mg ([place] mg 00 (three) Medical iron) times Branch tablet daily with meals. ferrous 2019-0 Yes [id number] 325mg Take 1 [facility] [place] sulfate 5-17 tablet by ity of (IRON) 325 00:00: mouth 3 [place] mg ([place] mg 00 (three) Medical iron) times Branch tablet daily with meals. ferrous 2019-0 Yes [id number] 325mg Take 1 [facility] [place] sulfate 5-17 tablet by ity of (IRON) 325 00:00: mouth 3 [place] mg ([place] mg 00 (three) Medical iron) times Branch tablet daily with meals. ferrous 2019-0 Yes [id number] 325mg Take 1 [facility] [place] sulfate 5-17 tablet by ity of (IRON) 325 00:00: mouth 3 [place] mg (65 mg 00 (three) Medical iron) times Branch tablet daily with meals. ferrous 2019-0 Yes [id number] 325mg Take 1 [facility] [place] sulfate 5-17 tablet by ity of (IRON) 325 00:00: mouth 3 [place] mg (65 mg 00 (three) Medical iron) times Branch tablet daily with meals. ferrous 2019-0 Yes [id number] 325mg Take 1 [facility] [place] sulfate 5-17 tablet by ity of (IRON) 325 00:00: mouth 3 [place] mg (65 mg 00 (three) Medical iron) times Branch tablet daily with meals. ferrous 2019-0 Yes [id number] 325mg Take 1 [facility] [place] sulfate 5-17 tablet by ity of (IRON) 325 00:00: mouth 3 [place] mg (65 mg 00 (three) Medical iron) times Branch tablet daily with meals. ferrous 2019-0 Yes [id number] 325mg Take 1 [facility] [place] sulfate 5-17 tablet by ity of (IRON) 325 00:00: mouth 3 [place] mg (65 mg 00 (three) Medical iron) times Branch tablet daily with meals. ferrous 2019-0 Yes [id number] 325mg Take 1 [facility] [place] sulfate 5-17 tablet by ity of (IRON) 325 00:00: mouth 3 [place] mg ([place] mg 00 (three) Medical iron) times Branch tablet daily with meals. ferrous 2019-0 Yes [id number] 325mg Take 1 [facility] [place] sulfate 5-17 tablet by ity of (IRON) 325 00:00: mouth 3 [place] mg ([place] mg 00 (three) Medical iron) times Branch tablet daily with meals. ferrous 2019-0 Yes [id number] 325mg Take 1 [facility] [place] sulfate 5-17 tablet by ity of (IRON) 325 00:00: mouth 3 [place] mg (65 mg 00 (three) Medical iron) times Branch tablet daily with meals. ferrous 2019-0 Yes [id number] 325mg Take 1 [facility] [place] sulfate 5-17 tablet by ity of (IRON) 325 00:00: mouth 3 [place] mg ([place] mg 00 (three) Medical iron) times Branch tablet daily with meals. ferrous 2019-0 Yes [id number] 325mg Take 1 [facility] [place] sulfate 5-17 tablet by ity of (IRON) 325 00:00: mouth 3 [place] mg (65 mg 00 (three) Medical iron) times Branch tablet daily with meals. ferrous 2019-0 Yes [id number] 325mg Take 1 [facility] [place] sulfate 5-17 tablet by ity of (IRON) 325 00:00: mouth 3 [place] mg (65 mg 00 (three) Medical iron) times Branch tablet daily with meals. ferrous 2019-0 Yes [id number] 325mg Take 1 [facility] [place] sulfate 5-17 tablet by ity of (IRON) 325 00:00: mouth 3 [place] mg (65 mg 00 (three) Medical iron) times Branch tablet daily with meals. ferrous 2019-0 Yes [id number] 325mg Take 1 [facility] [place] sulfate 5-17 tablet by ity of (IRON) 325 00:00: mouth 3 [place] mg (65 mg 00 (three) Medical iron) times Branch tablet daily with meals. ferrous 2019-0 Yes [id number] 325mg Take 1 [facility] [place] sulfate 5-17 tablet by ity of (IRON) 325 00:00: mouth 3 [place] mg (65 mg 00 (three) Medical iron) times Branch tablet daily with meals. ferrous 2019-0 Yes [id number] 325mg Take 1 [facility] [place] sulfate 5-17 tablet by ity of (IRON) 325 00:00: mouth 3 [place] mg (65 mg 00 (three) Medical iron) times Branch tablet daily with meals. ferrous 2019-0 Yes [id number] 325mg Take 1 [facility] [place] sulfate 5-17 tablet by ity of (IRON) 325 00:00: mouth 3 [place] mg (65 mg 00 (three) Medical iron) times Branch tablet daily with meals. ferrous 2019-0 Yes [id number] 325mg Take 1 [facility] [place] sulfate 5-17 tablet by ity of (IRON) 325 00:00: mouth 3 [place] mg (65 mg 00 (three) Medical iron) times Branch tablet daily with meals. ferrous 2019-0 Yes [id number] 325mg Take 1 [facility] [place] sulfate 5-17 tablet by ity of (IRON) 325 00:00: mouth 3 [place] mg (65 mg 00 (three) Medical iron) times Branch tablet daily with meals. ferrous 2019-0 Yes [id number] 325mg Take 1 [facility] [place] sulfate 5-17 tablet by ity of (IRON) 325 00:00: mouth 3 [place] mg (65 mg 00 (three) Medical iron) times Branch tablet daily with meals. ferrous 2019-0 Yes [id number] 325mg Take 1 [facility] [place] sulfate 5-17 tablet by ity of (IRON) 325 00:00: mouth 3 [place] mg (65 mg 00 (three) Medical iron) times Branch tablet daily with meals. ferrous 2019-0 Yes [id number] 325mg Take 1 [facility] [place] sulfate 5-17 tablet by ity of (IRON) 325 00:00: mouth 3 [place] mg (65 mg 00 (three) Medical iron) times Branch tablet daily with meals. ferrous 2019-0 Yes [id number] 325mg Take 1 [facility] [place] sulfate 5-17 tablet by ity of (IRON) 325 00:00: mouth 3 [place] mg (65 mg 00 (three) Medical iron) times Branch tablet daily with meals. ferrous 2019-0 Yes [id number] 325mg Take 1 [facility] [place] sulfate 5-17 tablet by ity of (IRON) 325 00:00: mouth 3 [place] mg (65 mg 00 (three) Medical iron) times Branch tablet daily with meals. ferrous 2019-0 Yes [id number] 325mg Take 1 [facility] [place] sulfate 5-17 tablet by ity of (IRON) 325 00:00: mouth 3 [place] mg (65 mg 00 (three) Medical iron) times Branch tablet daily with meals. ferrous 2019-0 Yes [id number] 325mg Take 1 [facility] [place] sulfate 5-17 tablet by ity of (IRON) 325 00:00: mouth 3 [place] mg (65 mg 00 (three) Medical iron) times Branch tablet daily with meals. ferrous 2019-0 Yes [id number] 325mg Take 1 [facility] [place] sulfate 5-17 tablet by ity of (IRON) 325 00:00: mouth 3 [place] mg (65 mg 00 (three) Medical iron) times Branch tablet daily with meals. ferrous 2019-0 Yes [id number] 325mg Take 1 [facility] [place] sulfate 5-17 tablet by ity of (IRON) 325 00:00: mouth 3 [place] mg (65 mg 00 (three) Medical iron) times Branch tablet daily with meals. ferrous 2019-0 Yes [id number] 325mg Take 1 [facility] [place] sulfate 5-17 tablet by ity of (IRON) 325 00:00: mouth 3 [place] mg (65 mg 00 (three) Medical iron) times Branch tablet daily with meals. ferrous 2019-0 Yes [id number] 325mg Take 1 [facility] [place] sulfate 5-17 tablet by ity of (IRON) 325 00:00: mouth 3 [place] mg (65 mg 00 (three) Medical iron) times Branch tablet daily with meals. ferrous 2019-0 Yes [id number] 325mg Take 1 [facility] [place] sulfate 5-17 tablet by ity of (IRON) 325 00:00: mouth 3 [place] mg (65 mg 00 (three) Medical iron) times Branch tablet daily with meals. ferrous 2019-0 Yes [id number] 325mg Take 1 [facility] [place] sulfate 5-17 tablet by ity of (IRON) 325 00:00: mouth 3 [place] mg (65 mg 00 (three) Medical iron) times Branch tablet daily with meals. ferrous 2019-0 Yes [id number] 325mg Take 1 [facility] [place] sulfate 5-17 tablet by ity of (IRON) 325 00:00: mouth 3 [place] mg (65 mg 00 (three) Medical iron) times Branch tablet daily with meals. ferrous 2019-0 Yes [id number] 325mg Take 1 [facility] [place] sulfate 5-17 tablet by ity of (IRON) 325 00:00: mouth 3 [place] mg (65 mg 00 (three) Medical iron) times Branch tablet daily with meals. ferrous 2019-0 Yes [id number] 325mg Take 1 [facility] [place] sulfate 5-17 tablet by ity of (IRON) 325 00:00: mouth 3 [place] mg (65 mg 00 (three) Medical iron) times Branch tablet daily with meals. ferrous 2019-0 Yes [id number] 325mg Take 1 [facility] [place] sulfate 5-17 tablet by ity of (IRON) 325 00:00: mouth 3 [place] mg ([place] mg 00 (three) Medical iron) times Branch tablet daily with meals. ferrous 2019-0 Yes [id number] 325mg Take 1 [facility] [place] sulfate 5-17 tablet by ity of (IRON) 325 00:00: mouth 3 [place] mg ([place] mg 00 (three) Medical iron) times Branch tablet daily with meals. ferrous 2019-0 Yes [id number] 325mg Take 1 [facility] [place] sulfate 5-17 tablet by ity of (IRON) 325 00:00: mouth 3 [place] mg (65 mg 00 (three) Medical iron) times Branch tablet daily with meals. ferrous 2019-0 Yes [id number] 325mg Take 1 [facility] [place] sulfate 5-17 tablet by ity of (IRON) 325 00:00: mouth 3 [place] mg (65 mg 00 (three) Medical iron) times Branch tablet daily with meals. ferrous 2019-0 Yes [id number] 325mg Take 1 [facility] [place] sulfate 5-17 tablet by ity of (IRON) 325 00:00: mouth 3 [place] mg (65 mg 00 (three) Medical iron) times Branch tablet daily with meals. ferrous 2019-0 Yes [id number] 325mg Take 1 [facility] [place] sulfate 5-17 tablet by ity of (IRON) 325 00:00: mouth 3 [place] mg (65 mg 00 (three) Medical iron) times Branch tablet daily with meals. ferrous 2019-0 Yes [id number] 325mg Take 1 [facility] [place] sulfate 5-17 tablet by ity of (IRON) 325 00:00: mouth 3 [place] mg (65 mg 00 (three) Medical iron) times Branch tablet daily with meals. ferrous 2019-0 Yes [id number] 325mg Take 1 [facility] [place] sulfate 5-17 tablet by ity of (IRON) 325 00:00: mouth 3 [place] mg (65 mg 00 (three) Medical iron) times Branch tablet daily with meals. ferrous 2019-0 Yes [id number] 325mg Take 1 [facility] [place] sulfate 5-17 tablet by ity of (IRON) 325 00:00: mouth 3 [place] mg (65 mg 00 (three) Medical iron) times Branch tablet daily with meals. ferrous 2019-0 Yes [id number] 325mg Take 1 [facility] [place] sulfate 5-17 tablet by ity of (IRON) 325 00:00: mouth 3 [place] mg (65 mg 00 (three) Medical iron) times Branch tablet daily with meals. ferrous 2019-0 Yes [id number] 325mg Take 1 [facility] [place] sulfate 5-17 tablet by it[facility] of (IRON) 325 00:00: mouth 3 [place] mg (65 mg 00 (three) Medical iron) times Branch tablet daily with meals. ferrous 2019-0 Yes [id number] 325mg Take 1 [facility] [place] sulfate 5-17 tablet by ity of (IRON) 325 00:00: mouth 3 [place] mg (65 mg 00 (three) Medical iron) times Branch tablet daily with meals. ferrous 2018-0 Yes [id number] 325mg Take 1 [facility] [place] sulfate 5-17 tablet by ity of (IRON) 325 00:00: mouth 3 [place] mg (65 mg 00 (three) Medical iron) times Branch tablet daily with meals. ferrous 2019-0 Yes [id number] 325mg Take 1 [facility] [place] sulfate 5-17 tablet by ity of (IRON) 325 00:00: mouth 3 [place] mg (65 mg 00 (three) Medical iron) times Branch tablet daily with meals. ferrous 2019-0 Yes [id number] 325mg Take 1 [facility] [place] sulfate 5-17 tablet by ity of (IRON) 325 00:00: mouth 3 [place] mg (65 mg 00 (three) Medical iron) times Branch tablet daily with meals. ferrous 2019-0 Yes [id number] 325mg Take 1 [facility] [place] sulfate 5-17 tablet by ity of (IRON) 325 00:00: mouth 3 [place] mg (65 mg 00 (three) Medical iron) times Branch tablet daily with meals. ferrous 2019-0 Yes [id number] 325mg Take 1 [facility] [place] sulfate 5-17 tablet by ity of (IRON) 325 00:00: mouth 3 [place] mg (65 mg 00 (three) Medical iron) times Branch tablet daily with meals. ferrous 2019-0 Yes [id number] 325mg Take 1 [facility] [place] sulfate 5-17 tablet by ity of (IRON) 325 00:00: mouth 3 [place] mg (65 mg 00 (three) Medical iron) times Branch tablet daily with meals. ferrous 2018- Yes [id number] 325mg Take 1 [facility] [place] sulfate 5-17 tablet by ity of (IRON) 325 00:00: mouth 3 [place] mg (65 mg 00 (three) Medical iron) times Branch tablet daily with meals. ferrous 2018- Yes [id number] 325mg Take 1 [facility] [place] sulfate 5-17 tablet by ity of (IRON) 325 00:00: mouth 3 [place] mg (65 mg 00 (three) Medical iron) times Branch tablet daily with meals. ferrous Yes [id number] 325mg Take 1 [facility] [place] sulfate 5-17 tablet by ity of (IRON) 325 00:00: mouth 3 [place] mg (65 mg 00 (three) Medical iron) times Branch tablet daily with meals. ferrous 2018- Yes [id number] 325mg Take 1 [facility] [place] sulfate 5-17 tablet by ity of (IRON) 325 00:00: mouth 3 [place] mg (65 mg 00 (three) Medical iron) times Branch tablet daily with meals. ferrous 2018- Yes [id number] 325mg Take 1 [facility] [place] sulfate 5-17 tablet by ity of (IRON) 325 00:00: mouth 3 [place] mg (65 mg 00 (three) Medical iron) times Branch tablet daily with meals. foLIC acid 2017-06 Yes [id number] 1mg Take 1 [facility] 1 mg tablet 2-05 tablet by ity of 00:00: mouth [place] 00 daily. Medical Branch foLIC acid 2017-06 Yes [id number] 1mg Take 1 [facility] 1 mg tablet 2-05 tablet by ity of 00:00: mouth [place] 00 daily. [facility] foLIC acid 2017-06 Yes [id number] 1mg Take 1 [facility] 1 mg tablet 2-05 tablet by ity of 00:00: mouth [place] 00 daily. Medical Branch foLIC acid 2017-06 Yes [id number] 1mg Take 1 [facility] 1 mg tablet 2-05 tablet by ity of 00:00: mouth [place] 00 daily. Medical Branch foLIC acid 2017-06 Yes [id number] 1mg Take 1 [facility] 1 mg tablet 2-05 tablet by ity of 00:00: mouth [place] 00 daily. Medical Branch foLIC acid 2017-06 Yes [id number] 1mg Take 1 [facility] 1 mg tablet 2-05 tablet by ity of 00:00: mouth [place] 00 daily. Medical Branch foLIC acid 2017-06 Yes [id number] 1mg Take 1 [facility] 1 mg tablet 2-05 tablet by ity of 00:00: mouth [place] 00 daily. Medical Branch foLIC acid 2017-06 Yes [id number] 1mg Take 1 [facility] 1 mg tablet 2-05 tablet by ity of 00:00: mouth [place] 00 daily. Medical Branch foLIC acid 2017-06 Yes [id number] 1mg Take 1 [facility] 1 mg tablet 2-05 tablet by ity of 00:00: mouth [place] 00 daily. Medical Branch foLIC acid 2017-06 Yes [id number] 1mg Take 1 [facility] 1 mg tablet 2-05 tablet by ity of 00:00: mouth [place] 00 daily. Medical Branch foLIC acid 2017-06 Yes [id number] 1mg Take 1 [facility] 1 mg tablet 2-05 tablet by ity of 00:00: mouth [place] 00 daily. Medical Branch foLIC acid 2017-06 Yes [id number] 1mg Take 1 [facility] nivers 1 mg tablet 2-05 tablet by [facility] 00:00: mouth [place] 00 daily. [facility] foLIC acid 2017-06 Yes [id number] 1mg Take 1 [facility] 1 mg tablet 2-05 tablet by [facility] 00:00: mouth [place] 00 daily. [facility] foLIC acid 2017-06 Yes [id number] 1mg Take 1 [facility] 1 mg tablet 2-05 tablet by [facility] 00:00: mouth [place] 00 daily. [facility] foLIC acid 2017-06 Yes [id number] 1mg Take 1 [facility] 1 mg tablet 2-05 tablet by [facility] 00:00: mouth [place] 00 daily. [facility] foLIC acid 2017-06 Yes [id number] 1mg Take 1 [facility] 1 mg tablet 2-05 tablet by [facility] 00:00: mouth [place] 00 daily. [facility] foLIC acid 2017-06 Yes [id number] 1mg Take 1 [facility] 1 mg tablet 2-05 tablet by [facility] 00:00: mouth [place] 00 daily. [facility] foLIC acid 2017-06 Yes [id number] 1mg Take 1 [facility] 1 mg tablet 2-05 tablet by [facility] 00:00: mouth [place] 00 daily. [facility] foLIC acid 2017-06 Yes [id number] 1mg Take 1 [facility] 1 mg tablet 2-05 tablet by [facility] 00:00: mouth [place] 00 daily. [facility] foLIC acid 2017-06 Yes [id number] 1mg Take 1 [facility] 1 mg tablet 2-05 tablet by [facility] 00:00: mouth [place] 00 daily. [facility] foLIC acid 2017-06 Yes [id number] 1mg Take 1 [facility] 1 mg tablet 2-05 tablet by [facility] 00:00: mouth [place] 00 daily. [facility] foLIC acid 2017-06 Yes [id number] 1mg Take 1 [facility] 1 mg tablet 2-05 tablet by [facility] 00:00: mouth [place] 00 daily. [facility] foLIC acid 2017-06 Yes [id number] 1mg Take 1 [facility] 1 mg tablet 2-05 tablet by [facility] 00:00: mouth [place] 00 daily. [facility] foLIC acid 2017-06 Yes [id number] 1mg Take 1 [facility] 1 mg tablet 2-05 tablet by [facility] 00:00: mouth [place] 00 daily. [facility] foLIC acid 2017-06 Yes [id number] 1mg Take 1 [facility] 1 mg tablet 2-05 tablet by [facility] 00:00: mouth [place] 00 daily. [facility] foLIC acid 2017-06 Yes [id number] 1mg Take 1 [facility] 1 mg tablet 2-05 tablet by [facility] 00:00: mouth [place] 00 daily. [facility] foLIC acid 2017-06 Yes [id number] 1mg Take 1 [facility] 1 mg tablet 2-05 tablet by [facility] 00:00: mouth [place] 00 daily. [facility] foLIC acid 2017-06 Yes [id number] 1mg Take 1 [facility] 1 mg tablet 2-05 tablet by [facility] 00:00: mouth [place] 00 daily. [facility] foLIC acid 2017-06 Yes [id number] 1mg Take 1 [facility] 1 mg tablet 2-05 tablet by [facility] 00:00: mouth [place] 00 daily. [facility] foLIC acid 2017-06 Yes [id number] 1mg Take 1 [facility] 1 mg tablet 2-05 tablet by [facility] 00:00: mouth [place] 00 daily. [facility] foLIC acid 2017-06 Yes [id number] 1mg Take 1 [facility] 1 mg tablet 2-05 tablet by [facility] 00:00: mouth [place] 00 daily. [facility] foLIC acid 2017-06 Yes [id number] 1mg Take 1 [facility] 1 mg tablet 2-05 tablet by [facility] 00:00: mouth [place] 00 daily. [facility] foLIC acid 2017-06 Yes [id number] 1mg Take 1 [facility] 1 mg tablet 2-05 tablet by [facility] 00:00: mouth [place] 00 daily. [facility] foLIC acid 2017-06 Yes [id number] 1mg Take 1 [facility] 1 mg tablet 2-05 tablet by [facility] 00:00: mouth [place] 00 daily. [facility] foLIC acid 2017-06 Yes [id number] 1mg Take 1 [facility] 1 mg tablet 2-05 tablet by [facility] 00:00: mouth [place] 00 daily. [facility] foLIC acid 2017-06 Yes [id number] 1mg Take 1 [facility] 1 mg tablet 2-05 tablet by [facility] 00:00: mouth [place] 00 daily. [facility] foLIC acid 2017-06 Yes [id number] 1mg Take 1 [facility] 1 mg tablet 2-05 tablet by [facility] 00:00: mouth [place] 00 daily. [facility] foLIC acid 2017-06 Yes [id number] 1mg Take 1 [facility] 1 mg tablet 2-05 tablet by [facility] 00:00: mouth [place] 00 daily. [facility] foLIC acid 2017-06 Yes [id number] 1mg Take 1 [facility] 1 mg tablet 2-05 tablet by [facility] 00:00: mouth [place] 00 daily. [facility] foLIC acid 2017-06 Yes [id number] 1mg Take 1 [facility] 1 mg tablet 2-05 tablet by [facility] 00:00: mouth [place] 00 daily. [facility] foLIC acid 2017-06 Yes [id number] 1mg Take 1 [facility] 1 mg tablet 2-05 tablet by [facility] 00:00: mouth [place] 00 daily. [facility] foLIC acid 2017-06 Yes [id number] 1mg Take 1 [facility] 1 mg tablet 2-05 tablet by [facility] 00:00: mouth [place] 00 daily. [facility] foLIC acid 2017-06 Yes [id number] 1mg Take 1 [facility] 1 mg tablet 2-05 tablet by [facility] 00:00: mouth [place] 00 daily. [facility] foLIC acid 2017-06 Yes [id number] 1mg Take 1 [facility] 1 mg tablet 2-05 tablet by [facility] 00:00: mouth [place] 00 daily. [facility] foLIC acid 2017-06 Yes [id number] 1mg Take 1 [facility] 1 mg tablet 2-05 tablet by [facility] 00:00: mouth [place] 00 daily. [facility] foLIC acid 2017-06 Yes [id number] 1mg Take 1 [facility] 1 mg tablet 2-05 tablet by [facility] 00:00: mouth [place] 00 daily. [facility] foLIC acid 2017-06 Yes [id number] 1mg Take 1 [facility] 1 mg tablet 2-05 tablet by [facility] 00:00: mouth [place] 00 daily. [facility] foLIC acid 2017-06 Yes [id number] 1mg Take 1 [facility] 1 mg tablet 2-05 tablet by [facility] 00:00: mouth [place] 00 daily. [facility] foLIC acid 2017-06 Yes [id number] 1mg Take 1 [facility] 1 mg tablet 2-05 tablet by [facility] 00:00: mouth [place] 00 daily. [facility] foLIC acid 2017-06 Yes [id number] 1mg Take 1 [facility] 1 mg tablet 2-05 tablet by [facility] 00:00: mouth [place] 00 daily. [facility] foLIC acid 2017-06 Yes [id number] 1mg Take 1 [facility] 1 mg tablet 2-05 tablet by [facility] 00:00: mouth [place] 00 daily. [facility] foLIC acid 2017-06 Yes [id number] 1mg Take 1 [facility] 1 mg tablet 2-05 tablet by [facility] 00:00: mouth [place] 00 daily. [facility] foLIC acid 2017-06 Yes [id number] 1mg Take 1 [facility] 1 mg tablet 2-05 tablet by [facility] 00:00: mouth [place] 00 daily. [facility] foLIC acid 2017-06 Yes [id number] 1mg Take 1 [facility] 1 mg tablet 2-05 tablet by [facility] 00:00: mouth [place] 00 daily. [facility] foLIC acid 2017-06 Yes [id number] 1mg Take 1 [facility] 1 mg tablet 2-05 tablet by [facility] 00:00: mouth [place] 00 daily. [facility] foLIC acid 2017-06 Yes [id number] 1mg Take 1 [facility] 1 mg tablet 2-05 tablet by [facility] 00:00: mouth [place] 00 daily. [facility] foLIC acid 2017-06 Yes [id number] 1mg Take 1 [facility] 1 mg tablet 2-05 tablet by [facility] 00:00: mouth [place] 00 daily. [facility] foLIC acid 2017-06 Yes [id number] 1mg Take 1 [facility] 1 mg tablet 2-05 tablet by [facility] 00:00: mouth [place] 00 daily. [facility] foLIC acid 2017-06 Yes [id number] 1mg Take 1 [facility] 1 mg tablet 2-05 tablet by [facility] 00:00: mouth [place] 00 daily. [facility] foLIC acid 2017-06 Yes [id number] 1mg Take 1 [facility] 1 mg tablet 2-05 tablet by [facility] 00:00: mouth [place] 00 daily. [facility] foLIC acid 2017-06 Yes [id number] 1mg Take 1 [facility] 1 mg tablet 2-05 tablet by [facility] 00:00: mouth [place] 00 daily. [facility] foLIC acid 2017-06 Yes [id number] 1mg Take 1 [facility] 1 mg tablet 2-05 tablet by [facility] 00:00: mouth [place] 00 daily. [facility] foLIC acid 2017-06 Yes [id number] 1mg Take 1 [facility] 1 mg tablet 2-05 tablet by [facility] 00:00: mouth [place] 00 daily. [facility] foLIC acid 2017-06 Yes [id number] 1mg Take 1 [facility] 1 mg tablet 2-05 tablet by [facility] 00:00: mouth [place] 00 daily. [facility] foLIC acid 2017-06 Yes [id number] 1mg Take 1 [facility] 1 mg tablet 2-05 tablet by [facility] 00:00: mouth [place] 00 daily. [facility] foLIC acid 2017-06 Yes [id number] 1mg Take 1 [facility] 1 mg tablet 2-05 tablet by [facility] 00:00: mouth [place] 00 daily. [facility] foLIC acid 2017-06 Yes [id number] 1mg Take 1 [facility] 1 mg tablet 2-05 tablet by [facility] 00:00: mouth [place] 00 daily. [facility] foLIC acid 2017-06 Yes [id number] 1mg Take 1 [facility] 1 mg tablet 2-05 tablet by [facility] 00:00: mouth [place] 00 daily. [facility] foLIC acid 2017-06 Yes [id number] 1mg Take 1 [facility] 1 mg tablet 2-05 tablet by [facility] 00:00: mouth [place] 00 daily. [facility] foLIC acid 2017-06 Yes [id number] 1mg Take 1 [facility] 1 mg tablet 2-05 tablet by [facility] 00:00: mouth [place] 00 daily. [facility] foLIC acid 2017-06 Yes [id number] 1mg Take 1 [facility] 1 mg tablet 2-05 tablet by [facility] 00:00: mouth [place] 00 daily. [facility] foLIC acid 2017-06 Yes [id number] 1mg Take 1 [facility] 1 mg tablet 2-05 tablet by [facility] 00:00: mouth [place] 00 daily. [facility] foLIC acid 2017-06 Yes [id number] 1mg Take 1 [facility] 1 mg tablet 2-05 tablet by [facility] 00:00: mouth [place] 00 daily. [facility] foLIC acid 2017-06 Yes [id number] 1mg Take 1 [facility] 1 mg tablet 2-05 tablet by [facility] 00:00: mouth [place] 00 daily. [facility] foLIC acid 2017-06 Yes [id number] 1mg Take 1 [facility] 1 mg tablet 2-05 tablet by [facility] 00:00: mouth [place] 00 daily. [facility] foLIC acid 2017-06 Yes [id number] 1mg Take 1 [facility] 1 mg tablet 2-05 tablet by [facility] 00:00: mouth [place] 00 daily. [facility] foLIC acid 2017-06 Yes [id number] 1mg Take 1 [facility] 1 mg tablet 2-05 tablet by [facility] 00:00: mouth [place] 00 daily. [facility] foLIC acid 2017-06 Yes [id number] 1mg Take 1 [facility] 1 mg tablet 2-05 tablet by [facility] 00:00: mouth [place] 00 daily. [facility] foLIC acid 2017-06 Yes [id number] 1mg Take 1 [facility] 1 mg tablet 2-05 tablet by [facility] 00:00: mouth [place] 00 daily. [facility] foLIC acid 2017-06 Yes [id number] 1mg Take 1 [facility] 1 mg tablet 2-05 tablet by [facility] 00:00: mouth [place] 00 daily. [facility] foLIC acid 2017-06 Yes [id number] 1mg Take 1 [facility] 1 mg tablet 2-05 tablet by [facility] 00:00: mouth [place] 00 daily. [facility] foLIC acid 2017-06 Yes [id number] 1mg Take 1 [facility] 1 mg tablet 2-05 tablet by [facility] 00:00: mouth [place] 00 daily. [facility] foLIC acid 2017-06 Yes [id number] 1mg Take 1 [facility] 1 mg tablet 2-05 tablet by [facility] 00:00: mouth [place] 00 daily. [facility] foLIC acid 2017-06 Yes [id number] 1mg Take 1 [facility] 1 mg tablet 2-05 tablet by [facility] 00:00: mouth [place] 00 daily. [facility] foLIC acid 2017-06 Yes [id number] 1mg Take 1 [facility] 1 mg tablet 2-05 tablet by [facility] 00:00: mouth [place] 00 daily. [facility] foLIC acid 2017-06 Yes [id number] 1mg Take 1 [facility] 1 mg tablet 2-05 tablet by [facility] 00:00: mouth [place] 00 daily. [facility] foLIC acid 2017-06 Yes [id number] 1mg Take 1 [facility] 1 mg tablet 2-05 tablet by [facility] 00:00: mouth [place] 00 daily. [facility] foLIC acid 2017-06 Yes [id number] 1mg Take 1 [facility] 1 mg tablet 2-05 tablet by [facility] 00:00: mouth [place] 00 daily. [facility] foLIC acid 2017-06 Yes [id number] 1mg Take 1 [facility] 1 mg tablet 2-05 tablet by [facility] 00:00: mouth [place] 00 daily. [facility] foLIC acid 2017-06 Yes [id number] 1mg Take 1 [facility] 1 mg tablet 2-05 tablet by [facility] 00:00: mouth [place] 00 daily. [facility] foLIC acid 2017-06 Yes [id number] 1mg Take 1 [facility] 1 mg tablet 2-05 tablet by [facility] 00:00: mouth [place] 00 daily. [facility] foLIC acid 2017-06 Yes [id number] 1mg Take 1 [facility] 1 mg tablet 2-05 tablet by [facility] 00:00: mouth [place] 00 daily. [facility] foLIC acid 2017-06 Yes [id number] 1mg Take 1 [facility] 1 mg tablet 2-05 tablet by [facility] 00:00: mouth [place] 00 daily. [facility] foLIC acid 2017-06 Yes [id number] 1mg Take 1 [facility] 1 mg tablet 2-05 tablet by [facility] 00:00: mouth [place] 00 daily. [facility] foLIC acid 2017-06 Yes [id number] 1mg Take 1 [facility] 1 mg tablet 2-05 tablet by [facility] 00:00: mouth [place] 00 daily. [facility] foLIC acid 2017-06 Yes [id number] 1mg Take 1 [facility] 1 mg tablet 2-05 tablet by [facility] 00:00: mouth [place] 00 daily. [facility] foLIC acid 2017-06 Yes [id number] 1mg Take 1 [facility] 1 mg tablet 2-05 tablet by [facility] 00:00: mouth [place] 00 daily. [facility] foLIC acid 2017-06 Yes [id number] 1mg Take 1 [facility] 1 mg tablet 2-05 tablet by [facility] 00:00: mouth [place] 00 daily. [facility] foLIC acid 2017-06 Yes [id number] 1mg Take 1 [facility] 1 mg tablet 2-05 tablet by [facility] 00:00: mouth [place] 00 daily. [facility] foLIC acid 2017-06 Yes [id number] 1mg Take 1 [facility] 1 mg tablet 2-05 tablet by [facility] 00:00: mouth [place] 00 daily. [facility] foLIC acid 2017-06 Yes [id number] 1mg Take 1 [facility] 1 mg tablet 2-05 tablet by [facility] 00:00: mouth [place] 00 daily. [facility] foLIC acid 2017-06 Yes [id number] 1mg Take 1 [facility] 1 mg tablet 2-05 tablet by [facility] 00:00: mouth [place] 00 daily. [facility] foLIC acid 2017-06 Yes [id number] 1mg Take 1 [facility] 1 mg tablet 2-05 tablet by [facility] 00:00: mouth [place] 00 daily. [facility] magnesium 2017-06 Yes [id number] 1{tbl} Take 1 [facility] 400 1-03 tablet by [facility] f mg 00:00: mouth [place] magnesium 00 daily. [facility] Tab [facility] magnesium 2017-06 Yes [id number] 1{tbl} Take 1 [facility] 400 1-03 tablet by [facility] f mg 00:00: mouth [place] magnesium 00 daily. [facility] Tab [facility] magnesium 2017-06 Yes [id number] 1{tbl} Take 1 [facility] 400 1-03 tablet by [facility] f mg 00:00: mouth [place] magnesium 00 daily. [facility] magnesium 2017- Yes [id number] 1{tbl} Take 1 [facility] 400 1-03 tablet by [facility] f mg 00:00: mouth [place] magnesium 00 daily. [facility] Tab [facility] magnesium 2017- Yes [id number] 1{tbl} Take 1 [facility] 400 1-03 tablet by [facility] f mg 00:00: mouth [place] magnesium 00 daily. [facility] magnesium 2017- Yes [id number] 1{tbl} Take 1 [facility] 400 1-03 tablet by [facility] f mg 00:00: mouth [place] magnesium 00 daily. [facility] Tab [facility] magnesium 2017- Yes [id number] 1{tbl} Take 1 [facility] 400 1-03 tablet by [facility] f mg 00:00: mouth [place] magnesium 00 daily. [facility] Tab [facility] magnesium 2017- Yes [id number] 1{tbl} Take 1 [facility] 400 1-03 tablet by [facility] f mg 00:00: mouth [place] magnesium 00 daily. [facility] Tab [facility] magnesium 2017- Yes [id number] 1{tbl} Take 1 [facility] 400 1-03 tablet by [facility] f mg 00:00: mouth [place] magnesium 00 daily. [facility] Tab [facility] magnesium 2017- Yes [id number] 1{tbl} Take 1 [facility] 400 1-03 tablet by [facility] f mg 00:00: mouth [place] magnesium 00 daily. [facility] Tab [facility] magnesium 2017- Yes [id number] 1{tbl} Take 1 [facility] 400 1-03 tablet by [facility] o f mg 00:00: mouth [place] magnesium 00 daily. [facility] Tab [facility] magnesium 2017- Yes [id number] 1{tbl} Take 1 [facility] 400 1-03 tablet by [facility] f mg 00:00: mouth [place] magnesium 00 daily. [facility] Tab [facility] magnesium 2017- Yes [id number] 1{tbl} Take 1 [facility] 400 1-03 tablet by [facility] o f mg 00:00: mouth [place] magnesium 00 daily. [facility] Tab [facility] magnesium 2017- Yes [id number] 1{tbl} Take 1 [facility] 400 1-03 tablet by [facility] f mg 00:00: mouth [place] magnesium 00 daily. [facility] Tab [facility] magnesium 2017- Yes [id number] 1{tbl} Take 1 [facility] 400 1-03 tablet by [facility] f mg 00:00: mouth [place] magnesium 00 daily. [facility] Tab [facility] magnesium 2017- Yes [id number] 1{tbl} Take 1 [facility] 400 1-03 tablet by [facility] f mg 00:00: mouth [place] magnesium 00 daily. [facility] Tab [facility] magnesium 2017- Yes [id number] 1{tbl} Take 1 [facility] 400 1-03 tablet by [facility] f mg 00:00: mouth [place] magnesium 00 daily. [facility] Tab [facility] magnesium 2017-06 Yes [id number] 1{tbl} Take 1 [facility] 400 1-03 tablet by [facility] f mg 00:00: mouth [place] magnesium 00 daily. [facility] Tab [facility] magnesium 2017-06 Yes [id number] 1{tbl} Take 1 [facility] 400 1-03 tablet by [facility] f mg 00:00: mouth [place] magnesium 00 daily. [facility] Tab [facility] magnesium 2017-06 Yes [id number] 1{tbl} Take 1 [facility] 400 1-03 tablet by [facility] f mg 00:00: mouth [place] magnesium 00 daily. [facility] Tab [facility] magnesium 2017-06 Yes [id number] 1{tbl} Take 1 [facility] 400 1-03 tablet by [facility] f mg 00:00: mouth [place] magnesium 00 daily. [facility] Tab [facility] magnesium 2017- Yes [id number] 1{tbl} Take 1 [facility] 400 1-03 tablet by [facility] f mg 00:00: mouth [place] magnesium 00 daily. [facility] Tab [facility] magnesium 2017- Yes [id number] 1{tbl} Take 1 [facility] 400 1-03 tablet by [facility] f mg 00:00: mouth [place] magnesium 00 daily. [facility] Tab [facility] magnesium 2017-06 Yes [id number] 1{tbl} Take 1 [facility] 400 1-03 tablet by [facility] f mg 00:00: mouth [place] magnesium 00 daily. [facility] Tab [facility] magnesium 2017- Yes [id number] 1{tbl} Take 1 [facility] 400 1-03 tablet by [facility] f mg 00:00: mouth [place] magnesium 00 daily. [facility] Tab [facility] magnesium 2017- Yes [id number] 1{tbl} Take 1 [facility] 400 1-03 tablet by [facility] f mg 00:00: mouth [place] magnesium 00 daily. [facility] Tab [facility] magnesium 2017- Yes [id number] 1{tbl} Take 1 [facility] 400 1-03 tablet by [facility] f mg 00:00: mouth [place] magnesium 00 daily. [facility] Tab [facility] magnesium 2017- Yes [id number] 1{tbl} Take 1 [facility] 400 1-03 tablet by [facility] f mg 00:00: mouth [place] magnesium 00 daily. [facility] Tab [facility] magnesium 2017- Yes [id number] 1{tbl} Take 1 [facility] 400 1-03 tablet by [facility] f mg 00:00: mouth [place] magnesium 00 daily. [facility] Tab [facility] magnesium 2017- Yes [id number] 1{tbl} Take 1 [facility] 400 1-03 tablet by [facility] f mg 00:00: mouth [place] magnesium 00 daily. [facility] Tab [facility] magnesium 2017- Yes [id number] 1{tbl} Take 1 [facility] 400 1-03 tablet by [facility] f mg 00:00: mouth [place] magnesium 00 daily. [facility] Tab [facility] magnesium 2017-06 Yes [id number] 1{tbl} Take 1 [facility] 400 1-03 tablet by [facility] f mg 00:00: mouth [place] magnesium 00 daily. [facility] Tab [facility] magnesium 2017-06 Yes [id number] 1{tbl} Take 1 [facility] 400 1-03 tablet by [facility] f mg 00:00: mouth [place] magnesium 00 daily. [facility] Tab [facility] magnesium 2017- Yes [id number] 1{tbl} Take 1 [facility] 400 1-03 tablet by [facility] f mg 00:00: mouth [place] magnesium 00 daily. [facility] Tab [facility] magnesium 2017- Yes [id number] 1{tbl} Take 1 [facility] 400 1-03 tablet by [facility] f mg 00:00: mouth [place] magnesium 00 daily. [facility] Tab [facility] magnesium 2017- Yes [id number] 1{tbl} Take 1 [facility] 400 1-03 tablet by [facility] f mg 00:00: mouth [place] magnesium 00 daily. [facility] Tab [facility] magnesium 2017- Yes [id number] 1{tbl} Take 1 [facility] 400 1-03 tablet by [facility] f mg 00:00: mouth [place] magnesium 00 daily. [facility] Tab [facility] magnesium 2017- Yes [id number] 1{tbl} Take 1 [facility] 400 1-03 tablet by [facility] f mg 00:00: mouth [place] magnesium 00 daily. [facility] Tab [facility] magnesium 2017- Yes [id number] 1{tbl} Take 1 [facility] 400 1-03 tablet by [facility] f mg 00:00: mouth [place] magnesium 00 daily. [facility] Tab [facility] magnesium 2017- Yes [id number] 1{tbl} Take 1 [facility] 400 1-03 tablet by [facility] f mg 00:00: mouth [place] magnesium 00 daily. [facility] Tab [facility] magnesium 2017- Yes [id number] 1{tbl} Take 1 [facility] 400 1-03 tablet by [facility] f mg 00:00: mouth [place] magnesium 00 daily. [facility] Tab [facility] magnesium 2017- Yes [id number] 1{tbl} Take 1 [facility] 400 1-03 tablet by [facility] f mg 00:00: mouth [place] magnesium 00 daily. [facility] Tab [facility] magnesium 2017- Yes [id number] 1{tbl} Take 1 [facility] 400 1-03 tablet by [facility] f mg 00:00: mouth [place] magnesium 00 daily. [facility] Tab [facility] magnesium 2017- Yes [id number] 1{tbl} Take 1 [facility] 400 1-03 tablet by [facility] f mg 00:00: mouth [place] magnesium 00 daily. [facility] Tab [facility] magnesium 2017-06 Yes [id number] 1{tbl} Take 1 [facility] 400 1-03 tablet by [facility] f mg 00:00: mouth [place] magnesium 00 daily. [facility] magnesium 2017- Yes [id number] 1{tbl} Take 1 [facility] 400 1-03 tablet by [facility] f mg 00:00: mouth [place] magnesium 00 daily. [facility] magnesium 2017- Yes [id number] 1{tbl} Take 1 [facility] 400 1-03 tablet by [facility] f mg 00:00: mouth [place] magnesium 00 daily. [facility] Tab [facility] magnesium 2017- Yes [id number] 1{tbl} Take 1 [facility] 400 1-03 tablet by [facility] f mg 00:00: mouth [place] magnesium 00 daily. [facility] Tab [facility] magnesium 2017- Yes [id number] 1{tbl} Take 1 [facility] 400 1-03 tablet by [facility] f mg 00:00: mouth [place] [facility] 00 daily. [facility] magnesium 2017- Yes [id number] 1{tbl} Take 1 [facility] 400 1-03 tablet by [facility] f mg 00:00: mouth [place] [facility] 00 daily. [facility] magnesium 2017- Yes [id number] 1{tbl} Take 1 [facility] 400 1-03 tablet by [facility] f mg 00:00: mouth [place] [facility] 00 daily. [facility] magnesium 2017- Yes [id number] 1{tbl} Take 1 [facility] 400 1-03 tablet by [facility] f mg 00:00: mouth [place] [facility] 00 daily. [facility] magnesium 2017- Yes [id number] 1{tbl} Take 1 [facility] 400 1-03 tablet by [facility] f mg 00:00: mouth [place] [facility] 00 daily. [facility] Tab [facility] magnesium 2017- Yes [id number] 1{tbl} Take 1 [facility] 400 1-03 tablet by [facility] f mg 00:00: mouth [place] [facility] 00 daily. [facility] Tab [facility] magnesium 2017- Yes [id number] 1{tbl} Take 1 [facility] 400 1-03 tablet by [facility] f mg 00:00: mouth [place] [facility] 00 daily. [facility] Tab [facility] magnesium 2017- Yes [id number] 1{tbl} Take 1 [facility] 400 1-03 tablet by [facility] f mg 00:00: mouth [place] [facility] 00 daily. [facility] magnesium 2017- Yes [id number] 1{tbl} Take 1 [facility] 400 1-03 tablet by [facility] f mg 00:00: mouth [place] [facility] 00 daily. [facility] Tab [facility] magnesium 2017- Yes [id number] 1{tbl} Take 1 [facility] 400 1-03 tablet by [facility] f mg 00:00: mouth [place] [facility] 00 daily. [facility] magnesium 2017- Yes [id number] 1{tbl} Take 1 [facility] 400 1-03 tablet by [facility] f mg 00:00: mouth [place] magnesium 00 daily. [facility] magnesium 2017- Yes [id number] 1{tbl} Take 1 [facility] 400 1-03 tablet by [facility] f mg 00:00: mouth [place] [facility] 00 daily. [facility] Tab [facility] magnesium 2017- Yes [id number] 1{tbl} Take 1 [facility] 400 1-03 tablet by [facility] f mg 00:00: mouth [place] [facility] 00 daily. [facility] magnesium 2017- Yes [id number] 1{tbl} Take 1 [facility] 400 1-03 tablet by [facility] f mg 00:00: mouth [place] [facility] 00 daily. [facility] magnesium 2017- Yes [id number] 1{tbl} Take 1 [facility] 400 1-03 tablet by [facility] f mg 00:00: mouth [place] [facility] 00 daily. [facility] magnesium 2017- Yes [id number] 1{tbl} Take 1 [facility] 400 1-03 tablet by [facility] f mg 00:00: mouth [place] [facility] 00 daily. [facility] magnesium 2017- Yes [id number] 1{tbl} Take 1 [facility] 400 1-03 tablet by [facility] f mg 00:00: mouth [place] [facility] 00 daily. [facility] magnesium 2017- Yes [id number] 1{tbl} Take 1 [facility] 400 1-03 tablet by [facility] f mg 00:00: mouth [place] [facility] 00 daily. [facility] magnesium 2017- Yes [id number] 1{tbl} Take 1 [facility] 400 1-03 tablet by [facility] f mg 00:00: mouth [place] [facility] 00 daily. [facility] magnesium 2017- Yes [id number] 1{tbl} Take 1 [facility] 400 1-03 tablet by [facility] f mg 00:00: mouth [place] [facility] 00 daily. [facility] magnesium 2017- Yes [id number] 1{tbl} Take 1 [facility] 400 1-03 tablet by [facility] f mg 00:00: mouth [place] [facility] 00 daily. [facility] magnesium 2017- Yes [id number] 1{tbl} Take 1 [facility] 400 1-03 tablet by [facility] f mg 00:00: mouth [place] [facility] 00 daily. [facility] magnesium 2017- Yes [id number] 1{tbl} Take 1 [facility] 400 1-03 tablet by [facility] f mg 00:00: mouth [place] [facility] 00 daily. [facility] magnesium 2017- Yes [id number] 1{tbl} Take 1 [facility] 400 1-03 tablet by [facility] f mg 00:00: mouth [place] [facility] 00 daily. [facility] magnesium 2017- Yes [id number] 1{tbl} Take 1 [facility] 400 1-03 tablet by [facility] f mg 00:00: mouth [place] [facility] 00 daily. [facility] magnesium 2017- Yes [id number] 1{tbl} Take 1 [facility] 400 1-03 tablet by [facility] f mg 00:00: mouth [place] [facility] 00 daily. [facility] magnesium 2017- Yes [id number] 1{tbl} Take 1 [facility] oxide 400 1-03 tablet by [facility] f mg 00:00: mouth [place] [facility] 00 daily. [facility] magnesium 2017- Yes [id number] 1{tbl} Take 1 [facility] oxide 400 1-03 tablet by [facility] f mg 00:00: mouth [place] [facility] 00 daily. [facility] magnesium 2017- Yes [id number] 1{tbl} Take 1 [facility] oxide 400 1-03 tablet by [facility] f mg 00:00: mouth [place] [facility] 00 daily. [facility] magnesium 2017- Yes [id number] 1{tbl} Take 1 [facility] oxide 400 1-03 tablet by [facility] f mg 00:00: mouth [place] [facility] 00 daily. [facility] magnesium 2017- Yes [id number] 1{tbl} Take 1 [facility] oxide 400 1-03 tablet by [facility] f mg 00:00: mouth [place] [facility] 00 daily. [facility] magnesium 2017- Yes [id number] 1{tbl} Take 1 [facility] oxide 400 1-03 tablet by [facility] f mg 00:00: mouth [place] [facility] 00 daily. [facility] magnesium 2017- Yes [id number] 1{tbl} Take 1 [facility] oxide 400 1-03 tablet by [facility] f mg 00:00: mouth [place] [facility] 00 daily. [facility] magnesium 2017- Yes [id number] 1{tbl} Take 1 [facility] oxide 400 1-03 tablet by [facility] o f mg 00:00: mouth [place] [facility] 00 daily. [facility] magnesium 2017- Yes [id number] 1{tbl} Take 1 [facility] oxide 400 1-03 tablet by [facility] o f mg 00:00: mouth [place] magnesium 00 daily. [facility] magnesium 2017- Yes [id number] 1{tbl} Take 1 [facility] oxide 400 [facility]-03 tablet [facility] mg 00:00: mouth [place] magnesium 00 daily. [facility] magnesium 2017- Yes [id number] 1{tbl} Take 1 [facility] oxide 400 1-03 tablet by [facility] f mg 00:00: mouth [place] magnesium 00 daily. [facility] magnesium 2017- Yes [id number] 1{tbl} Take 1 [facility] oxide 400 1-03 tablet by [facility] f mg 00:00: mouth [place] magnesium 00 daily. [facility] magnesium 2017- Yes [id number] 1{tbl} Take 1 [facility] oxide 400 1-03 tablet by [facility] f mg 00:00: mouth [place] magnesium 00 daily. [facility] magnesium 2017- Yes [id number] 1{tbl} Take 1 [facility] oxide 400 1-03 tablet by [facility] f mg 00:00: mouth [place] magnesium 00 daily. [facility] magnesium 2017- Yes [id number] 1{tbl} Take 1 [facility] oxide 400 1-03 tablet by [facility] f mg 00:00: mouth [place] magnesium 00 daily. [facility] magnesium 2017-06 Yes [id number] 1{tbl} Take 1 [facility] oxide 400 1-03 tablet by [facility] f mg 00:00: mouth [place] magnesium 00 daily. [facility] magnesium 2017-06 Yes [id number] 1{tbl} Take 1 [facility] oxide 400 1-03 tablet by [facility] f mg 00:00: mouth [place] magnesium 00 daily. [facility] magnesium 2017- Yes [id number] 1{tbl} Take 1 [facility] oxide 400 1-03 tablet by [facility] f mg 00:00: mouth [place] magnesium 00 daily. [facility] magnesium 2017-06 Yes [id number] 1{tbl} Take 1 [facility] oxide 400 1-03 tablet by [facility] f mg 00:00: mouth [place] magnesium 00 daily. [facility] magnesium 2017- Yes [id number] 1{tbl} Take 1 [facility] oxide 400 1-03 tablet by [facility] f mg 00:00: mouth [place] magnesium 00 daily. [facility] magnesium 2017- Yes [id number] 1{tbl} Take 1 [facility] oxide 400 1-03 tablet by [facility] o f mg 00:00: mouth [place] magnesium 00 daily. [facility] magnesium 2017- Yes [id number] 1{tbl} Take 1 [facility] oxide 400 1-03 tablet by [facility] o f mg 00:00: mouth [place] magnesium 00 daily. [facility] magnesium 2017- Yes [id number] 1{tbl} Take 1 [facility] oxide 400 1-03 tablet by [facility] o f mg 00:00: mouth [place] magnesium 00 daily. [facility] magnesium 2017- Yes [id number] 1{tbl} Take 1 [facility] oxide 400 1-03 tablet by [facility] o f mg 00:00: mouth [place] magnesium 00 daily. [facility] magnesium 2017- Yes [id number] 1{tbl} Take 1 [facility] oxide 400 1-03 tablet by [facility] f mg 00:00: mouth [place] magnesium 00 daily. [facility] magnesium 2017- Yes [id number] 1{tbl} Take 1 [facility] oxide 400 1-03 tablet by [facility] f mg 00:00: mouth [place] magnesium 00 daily. [facility] magnesium 2017- Yes [id number] 1{tbl} Take 1 [facility] oxide 400 1-03 tablet by [facility] f mg 00:00: mouth [place] magnesium 00 daily. [facility] magnesium 2017- Yes [id number] 1{tbl} Take 1 [facility] oxide 400 1-03 tablet by [facility] f mg 00:00: mouth [place] magnesium 00 daily. [facility] magnesium 2017- Yes [id number] 1{tbl} Take 1 [facility] oxide 400 1-03 tablet by [facility] f mg 00:00: mouth [place] magnesium 00 daily. [facility] allopurinol Yes [id number] 300mg QD Take 300 [facility] (ZYLOPRIM) 8-[address] 300 MG 09:01: [facility] tablet 19 daily. l atorvastati Yes [id number] 40mg QD Take 40 mg [facility] (LIPITOR) 8-[address] 40 MG 09:01: nightly. [facility] tablet 19 l clonAZEPAM Yes Take by [facility] (KlonoPIN) 8-[address] 1 MG tablet 09:01: Take 1/2 [facility] 19 tablet in l morning, 1/2 tablet at noon, and 1 tablet in the evening docusate Yes [id number] 100mg QD Take 100 [facility] sodium 8-[address] (COLACE) 09:01: mouth [facility] 100 MG 19 daily. l capsule furosemide Yes [id number] 80mg Q.5D Take 80 mg [facility] (LASIX) 80 8-[address] mg tablet 09:01: (two) [facility]osp[facility] 19 times a l day. clopidogrel Yes [id number] 75mg QD Take 75 mg [facility] (PLAVIX) 75 8-[address] mg tablet 09:01: daily. Hospit a 19 l metOLazone Yes [id number] 2.5mg Q24H Take 2.5 [facility] (ZAROXOLYN) 8-[address] 2.5 MG 09:01: mouth [facility] tablet 19 daily as l needed (for weight gain greater than 5 poounds). metoprolol Yes [id number] 12.5mg Q24H Take 12.5 [facility] tartrate 8-[address] (LOPRESSOR) 09:01: mouth [facility] 25 mg 19 daily as l tablet needed (if pulse greater than 110). nitroglycer Yes [id number] 1{spray Place 1 [facility] in 8-22 } spray st (NITROLINGU 09:01: under the [facility] AL) 400 19 tongue l mcg/spray every 5 spray (five) minutes as needed for chest pain. insulin Yes [id number] 10U Q.[id number] Inject 10 [facility] ASPART 8-[id number] (NovoLOG) 09:01: 3D under the [facility] 100 unit/mL 19 skin 3 l insulin pen (three) times a day before meals. pantoprazol Yes [id number] 40mg QD Take 40 mg [facility] 8-[address] (PROTONIX) 09:01: daily. [facility] ta 40 MG EC 19 l tablet insulin Yes [id number] 20U QD Inject 20 [facility] GLARGINE 8-[address] (LANTUS 09:01: under the [facility] SOLOSTAR) 19 skin l 100 unit/mL nightly. injection (pen) potassium Yes 88003 20meq Q.[id number] Take 20 [facility] chloride 8-[id number] (K-DUR,KLOR 09:01: 3D mouth 3 [facility] -CON) 10 19 (three) l MEQ CR times a tablet day. Three tabs QID methocarbam Yes [id number] 750mg Q.5D Take 750 [facility] ol 8-[address] (ROBAXIN) 09:01: mouth 2 [facility] 750 MG 19 (two) l tablet times a day. ranolazine Yes [id number] 1000mg Q.5D Take 1,000 [facility] (RANEXA) 8-[address] 1,000 mg 12 09:01: mouth 2 [facility] hr tablet 19 (two) l times a day. warfarin Yes [id number] 10mg Take 10 mg [facility] (COUMADIN) 8-[address] 10 MG 09:01: On [facility]osp[facility] tablet 19 Friday, l , Friday, Friday warfarin Yes [id number] 7.5mg Take 7.5 [facility] (COUMADIN) 8-[address] 7.5 MG 09:01: mouth. On Hospit a tablet 19 Friday, l Friday, Friday cyanocobala Yes [id number] 1000ug Q7D Inject M [facility] min 1,000 8-22 1,[address] mcg/mL 09:01: into the [facility]osp[facility] injection 19 shoulder, l thigh, or buttocks once a week. For 3 months, and then will reassess B12 [place]lafax [place] [id number] 100mg QD Take 100 [facility] ine 8-[address] (PRISTIQ) 09:01: mouth [facility] 100 MG 24 19 daily. l hr tablet ferrous Yes [id number] 325mg Q.[id number] Take 325 [facility] sulfate 325 8-22 [id number] mg by s t (65 FE) MG 09:01: 3D mouth 3 [facility] tablet 19 (three) l times a day with meals. AMILoride Yes [id number] 5mg Q.5D Take 5 mg [facility] (MIDAMOR) 5 8-[address] MG tablet 09:01: (two) [facility]ospita 19 times a l day. folic acid Yes [id number] 1mg QD Take 1 mg [facility] (FOLVITE) 1 8-[address] MG tablet 09:01: daily. Hospit a 19 l allopurinol Yes [id number] 300mg QD Take 300 [facility] (ZYLOPRIM) 8-[address] 300 MG 09:01: mouth [facility] tablet 19 daily. l atorvastati Yes [id number] 40mg QD Take 40 mg [facility] (LIPITOR) 8-[address] 40 MG 09:01: nightly. [facility] tablet 19 l clonAZEPAM Yes Take by [facility] (KlonoPIN) 8-[address] 1 MG tablet 09:01: Take 1/2 [facility] 19 tablet in l morning, 1/2 tablet at noon, and 1 tablet in the evening docusate Yes [id number] 100mg QD Take 100 [facility] sodium 8-[address] (COLACE) 09:01: mouth [facility] 100 MG 19 daily. l capsule furosemide Yes [id number] 80mg Q.5D Take 80 mg [facility] (LASIX) 80 8-[address] mg tablet 09:01: (two) [facility]osp[facility] 19 times a l day. clopidogrel Yes [id number] 75mg QD Take 75 mg [facility] (PLAVIX) 75 8-[address] mg tablet 09:01: daily. Hospit a 19 l metOLazone Yes [id number] 2.5mg Q24H Take 2.5 [facility] (ZAROXOLYN) 8-[address] 2.5 MG 09:01: mouth [facility] tablet 19 daily as l needed (for weight gain greater than 5 poounds). metoprolol Yes [id number] 12.5mg Q24H Take 12.5 [facility] tartrate 8-[address] (LOPRESSOR) 09:01: mouth [facility] 25 mg 19 daily as l tablet needed (if pulse greater than 110). nitroglycer Yes [id number] 1{spray Place 1 [facility] in 02-11 } spray st (NITROLINGU 09:01: under the [facility] AL) 400 19 tongue l mcg/spray every 5 spray (five) minutes as needed for chest pain. insulin Yes [id number] 10U Q.[id number] Inject 10 [facility] ASPART 8-[id number] (NovoLOG) 09:01: 3D under [facility] 100 unit/mL 19 skin 3 l insulin pen (three) times a day before meals. pantoprazol Yes [id number] 40mg QD Take 40 mg [facility] 8-[address] (PROTONIX) 09:01: daily. [facility] ta 40 MG EC 19 l tablet insulin Yes [id number] 20U QD Inject 20 [facility] GLARGINE 8-[address] (LANTUS 09:01: under the [facility] SOLOSTAR) 19 skin l 100 unit/mL nightly. injection (pen) potassium Yes [id number] 20meq Q.[id number] Take 20 [facility] chloride 8-[id number] (K-DUR,KLOR 09:01: 3D mouth 3 [facility] -CON) 10 19 (three) l MEQ CR times a tablet day. Three tabs QID methocarbam Yes [id number] 750mg Q.5D Take 750 [facility] ol 8-[address] (ROBAXIN) 09:01: mouth 2 [facility] 750 MG 19 (two) l tablet times a day. ranolazine Yes [id number] 1000mg Q.5D Take 1,000 [facility] (RANEXA) 8-[address] 1,000 mg 12 09:01: mouth 2 [facility] hr tablet 19 (two) l times a day. warfarin Yes [id number] 10mg Take 10 mg [facility] (COUMADIN) 8-[address] 10 MG 09:01: On [facility] tablet 19 Friday, l , Friday, Friday warfarin Yes [id number] 7.5mg Take 7.5 [facility] (COUMADIN) 8-[address] 7.5 MG 09:01: mouth. On Hospit a tablet 19 Friday, l Friday, Friday cyanocobala Yes [id number] 1000ug Q7D Inject M [facility] min 1,000 8-22 1,[address] mcg/mL 09:01: into the [facility] injection 19 shoulder, l thigh, or buttocks once a week. For 3 months, and then will reassess B12 levels desvenlafax Yes [id number] 100mg QD Take 100 [facility] ine 8-[address] (PRISTIQ) 09:01: mouth [facility] 100 MG 24 19 daily. l hr tablet ferrous Yes [id number] 325mg Q.[id number] Take 325 [facility] sulfate 325 8-22 [id number] mg by s t (65 FE) MG 09:01: 3D mouth [facility] tablet 19 (three) l times a day with meals. AMILoride Yes [id number] 5mg Q.5D Take 5 mg [facility] (MIDAMOR) 5 8-[address] MG tablet 09:01: (two) [facility]osp[facility] 19 times a l day. folic acid Yes [id number] 1mg QD Take 1 mg [facility] (FOLVITE) 1 8-[address] MG tablet 09:01: daily. [facility] a 19 l docusate 2017-0 Yes 100mg Take 1 [facility] mg 1-12 capsule [facility] capsule 00:00: mouth (two) [facility] times [facility] daily as needed for Constipati on. docusate 2016-0 Yes 100mg Take 1 [facility] 100 mg 1-12 capsule by [facility] capsule 00:00: mouth (two) [facility] times [facility] daily as needed for Constipati on. docusate 2016-0 Yes 100mg Take 1 [facility] 100 mg 1-12 capsule by [facility] capsule 00:00: mouth (two) [facility] times [facility] daily as needed for Constipati on. docusate 2016-0 Yes 100mg Take 1 [facility] 100 mg 1-12 capsule by [facility] capsule 00:00: mouth (two) [facility] times [facility] daily as needed for Constipati on. docusate 2016-0 Yes 100mg Take 1 [facility] 100 mg 1-12 capsule by [facility] capsule 00:00: mouth (two) [facility] times [facility] daily as needed for Constipati on. docusate 0 Yes 100mg Take 1 [facility] 100 mg 1-12 capsule by [facility] capsule 00:00: mouth (two) [facility] times [facility] daily as needed for Constipati on. docusate 0 Yes 100mg Take 1 [facility] 100 mg 1-12 capsule by [facility] capsule 00:00: mouth (two) [facility] times [facility] daily as needed for Constipati on. docusate 2017-0 Yes 100mg Take 1 [facility] 100 mg 1-12 capsule by [facility] of capsule 00:00: mouth (two) [facility] times [facility] daily as needed for Constipati on. docusate 2017-0 Yes 100mg Take 1 [facility] 100 mg 1-12 capsule by [facility] capsule 00:00: mouth (two) [facility] times [facility] daily as needed for Constipati on. docusate 2017-0 Yes 100mg Take 1 [facility] 100 mg 1-12 capsule by [facility] capsule 00:00: mouth (two) [facility] times [facility] daily as needed for Constipati on. docusate 2017-0 Yes 100mg Take 1 [facility] 100 mg 1-12 capsule by [facility] capsule 00:00: mouth (two) [facility] times [facility] daily as needed for Constipati on. docusate 2017-0 Yes 100mg Take 1 [facility] 100 mg 1-12 capsule by [facility] of capsule 00:00: mouth (two) [facility] times [facility] daily as needed for Constipati on. docusate 2017-0 Yes 100mg Take 1 [facility] 100 mg 1-12 capsule by [facility] of capsule 00:00: mouth (two) [facility] times [facility] daily as needed for Constipati on. docusate 2017-0 Yes 100mg Take 1 [facility] 100 mg 1-12 capsule by [facility] of capsule 00:00: mouth (two) [facility] times [facility] daily as needed for Constipati on. docusate 2017-0 Yes 100mg Take 1 [facility] 100 mg 1-12 capsule by [facility] capsule 00:00: mouth (two) [facility] times [facility] daily as needed for Constipati on. docusate 2017-0 Yes 100mg Take 1 [facility] 100 mg 1-12 capsule by [facility] capsule 00:00: mouth (two) [facility] times [facility] daily as needed for Constipati on. docusate 2017-0 Yes 100mg Take 1 [facility] 100 mg 1-12 capsule by [facility] of capsule 00:00: mouth (two) [facility] times [facility] daily as needed for Constipati on. docusate 2017-0 Yes 100mg Take 1 [facility] 100 mg 1-12 capsule by [facility] of capsule 00:00: mouth (two) [facility] times [facility] daily as needed for Constipati on. docusate 2017-0 Yes 100mg Take 1 [facility] 100 mg 1-12 capsule by [facility] of capsule 00:00: mouth (two) [facility] times [facility] daily as needed for Constipati on. docusate 2017-0 Yes 100mg Take 1 [facility] 100 mg 1-12 capsule by [facility] of capsule 00:00: mouth (two) [facility] times [facility] daily as needed for Constipati on. docusate 2017-0 Yes 100mg Take 1 [facility] 100 mg 1-12 capsule by [facility] capsule 00:00: mouth 2 00 (two) Medical times [facility] daily as needed for Constipati on. docusate 2017-0 Yes 100mg Take 1 [facility] 100 mg 1-12 capsule by [facility] capsule 00:00: mouth (two) [facility] times [facility] daily as needed for Constipati on. docusate 2017-0 Yes 100mg Take 1 [facility] 100 mg 1-12 capsule by [facility] capsule 00:00: mouth (two) [facility] times [facility] daily as needed for Constipati on. docusate 2017-0 Yes 100mg Take 1 [facility] 100 mg 1-12 capsule by [facility] capsule 00:00: mouth (two) [facility] times [facility] daily as needed for Constipati on. docusate 2017-0 Yes 100mg Take 1 [facility] 100 mg 1-12 capsule by [facility] capsule 00:00: mouth (two) [facility] times [facility] daily as needed for Constipati on. docusate 2017-0 Yes 100mg Take 1 [facility] 100 mg 1-12 capsule by [facility] capsule 00:00: mouth (two) [facility] times [facility] daily as needed for Constipati on. docusate 2017-0 Yes 100mg Take 1 [facility] 100 mg 1-12 capsule by [facility] capsule 00:00: mouth (two) [facility] times [facility] daily as needed for Constipati on. docusate 2017-0 Yes 100mg Take 1 [facility] 100 mg 1-12 capsule by [facility] capsule 00:00: mouth (two) [facility] times [facility] daily as needed for Constipati on. docusate 2017-0 Yes 100mg Take 1 [facility] 100 mg 1-12 capsule by [facility] capsule 00:00: mouth (two) [facility] times [facility] daily as needed for Constipati on. docusate 2017-0 Yes 100mg Take 1 [facility] 100 mg 1-12 capsule by [facility] capsule 00:00: mouth (two) [facility] times [facility] daily as needed for Constipati on. docusate 2017-0 Yes 100mg Take 1 [facility] 100 mg 1-12 capsule by [facility] capsule 00:00: mouth (two) [facility] times [facility] daily as needed for Constipati on. docusate 2017-0 Yes 100mg Take 1 [facility] 100 mg 1-12 capsule by [facility] capsule 00:00: mouth (two) Medical times [facility] daily as needed for Constipati on. docusate 2017-0 Yes 100mg Take 1 [facility] 100 mg 1-12 capsule by [facility] of capsule 00:00: mouth (two) Medical times [facility] daily as needed for Constipati on. docusate 2017-0 Yes 100mg Take 1 [facility] 100 mg 1-12 capsule by [facility] capsule 00:00: mouth (two) Medical times [facility] daily as needed for Constipati on. docusate 2017-0 Yes 100mg Take 1 [facility] 100 mg 1-12 capsule by [facility] of capsule 00:00: mouth (two) Medical times [facility] daily as needed for Constipati on. docusate 2017-0 Yes 100mg Take 1 [facility] 100 mg 1-12 capsule by [facility] of capsule 00:00: mouth (two) Medical times [facility] daily as needed for Constipati on. docusate 2017-0 Yes 100mg Take 1 [facility] 100 mg 1-12 capsule by [facility] of capsule 00:00: mouth (two) [facility] times [facility] daily as needed for Constipati on. docusate 2017-0 Yes 100mg Take 1 [facility] 100 mg 1-12 capsule by [facility] capsule 00:00: mouth (two) [facility] times [facility] daily as needed for Constipati on. docusate 2017-0 Yes 100mg Take 1 [facility] 100 mg 1-12 capsule by [facility] capsule 00:00: mouth (two) [facility] times [facility] daily as needed for Constipati on. docusate 2017-0 Yes 100mg Take 1 [facility] 100 mg 1-12 capsule by [facility] capsule 00:00: mouth (two) Medical times [facility] daily as needed for Constipati on. docusate 2017-0 Yes 100mg Take 1 [facility] 100 mg 1-12 capsule by [facility] capsule 00:00: mouth (two) Medical times [facility] daily as needed for Constipati on. docusate 2017-0 Yes 100mg Take 1 [facility] 100 mg 1-12 capsule by [facility] capsule 00:00: mouth (two) Medical times [facility] daily as needed for Constipati on. docusate 2017-0 Yes 100mg Take 1 [facility] 100 mg 1-12 capsule by [facility] capsule 00:00: mouth (two) Medical times [facility] daily as needed for Constipati on. docusate 2017-0 Yes 100mg Take 1 [facility] 100 mg 1-12 capsule by [facility] capsule 00:00: mouth (two) Medical times [facility] daily as needed for Constipati on. docusate 2017-0 Yes 100mg Take 1 [facility] 100 mg 1-12 capsule by [facility] capsule 00:00: mouth (two) Medical times [facility] daily as needed for Constipati on. docusate 2017-0 Yes 100mg Take 1 [facility] 100 mg 1-12 capsule by [facility] capsule 00:00: mouth (two) Medical times [facility] daily as needed for Constipati on. docusate 2017-0 Yes 100mg Take 1 [facility] 100 mg 1-12 capsule by [facility] of capsule 00:00: mouth (two) Medical times [facility] daily as needed for Constipati on. docusate 2017-0 Yes 100mg Take 1 [facility] 100 mg 1-12 capsule by [facility] capsule 00:00: mouth (two) Medical times [facility] daily as needed for Constipati on. docusate 2017-0 Yes 100mg Take 1 [facility] 100 mg 1-12 capsule by [facility] capsule 00:00: mouth (two) Medical times [facility] daily as needed for Constipati on. docusate 2017-0 Yes 100mg Take 1 [facility] 100 mg 1-12 capsule by [facility] capsule 00:00: mouth (two) Medical times [facility] daily as needed for Constipati on. docusate 2017-0 Yes 100mg Take 1 [facility] 100 mg 1-12 capsule by [facility] capsule 00:00: mouth (two) Medical times [facility] daily as needed for Constipati on. docusate 2017-0 Yes 100mg Take 1 [facility] 100 mg 1-12 capsule by [facility] capsule 00:00: mouth (two) Medical times [facility] daily as needed for Constipati on. docusate 2017-0 Yes 100mg Take 1 [facility] 100 mg 1-12 capsule by [facility] capsule 00:00: mouth (two) Medical times [facility] daily as needed for Constipati on. docusate 2017-0 Yes 100mg Take 1 [facility] 100 mg 1-12 capsule by [facility] capsule 00:00: mouth (two) Medical times [facility] daily as needed for Constipati on. docusate 2017-0 Yes 100mg Take 1 [facility] 100 mg 1-12 capsule by [facility] capsule 00:00: mouth (two) Medical times [facility] daily as needed for Constipati on. docusate 2017-0 Yes 100mg Take 1 [facility] 100 mg 1-12 capsule by [facility] capsule 00:00: mouth (two) Medical times [facility] daily as needed for Constipati on. docusate 2017-0 Yes 100mg Take 1 [facility] 100 mg 1-12 capsule by [facility] capsule 00:00: mouth (two) Medical times [facility] daily as needed for Constipati on. docusate 2017-0 Yes 100mg Take 1 [facility] 100 mg 1-12 capsule by [facility] capsule 00:00: mouth (two) Medical times [facility] daily as needed for Constipati on. docusate 2017-0 Yes 100mg Take 1 [facility] 100 mg 1-12 capsule by [facility] capsule 00:00: mouth (two) Medical times [facility] daily as needed for Constipati on. docusate 2017-0 Yes 100mg Take 1 [facility] 100 mg 1-12 capsule by [facility] capsule 00:00: mouth (two) Medical times [facility] daily as needed for Constipati on. docusate 2017-0 Yes 100mg Take 1 [facility] 100 mg 1-12 capsule by [facility] capsule 00:00: mouth (two) Medical times [facility] daily as needed for Constipati on. docusate 2017-0 Yes 100mg Take 1 [facility] 100 mg 1-12 capsule by [facility] capsule 00:00: mouth (two) Medical times [facility] daily as needed for Constipati on. docusate 2017-0 Yes 100mg Take 1 [facility] 100 mg 1-12 capsule by [facility] capsule 00:00: mouth (two) Medical times [facility] daily as needed for Constipati on. docusate 2017-0 Yes 100mg Take 1 [facility] 100 mg 1-12 capsule by [facility] capsule 00:00: mouth (two) Medical times [facility] daily as needed for Constipati on. docusate 2017-0 Yes 100mg Take 1 [facility] 100 mg 1-12 capsule by [facility] capsule 00:00: mouth (two) Medical times [facility] daily as needed for Constipati on. docusate 2017-0 Yes 100mg Take 1 [facility] 100 mg 1-12 capsule by [facility] capsule 00:00: mouth (two) Medical times [facility] daily as needed for Constipati on. docusate 2017-0 Yes 100mg Take 1 [facility] 100 mg 1-12 capsule by [facility] capsule 00:00: mouth (two) Medical times [facility] daily as needed for Constipati on. docusate 2017-0 Yes 100mg Take 1 [facility] 100 mg 1-12 capsule by [facility] capsule 00:00: mouth (two) Medical times [facility] daily as needed for Constipati on. docusate 2017-0 Yes 100mg Take 1 [facility] 100 mg 1-12 capsule by [facility] of capsule 00:00: mouth (two) Medical times [facility] daily as needed for Constipati on. docusate 2017-0 Yes 100mg Take 1 [facility] 100 mg 1-12 capsule by [facility] capsule 00:00: mouth (two) Medical times [facility] daily as needed for Constipati on. docusate 2017-0 Yes 100mg Take 1 [facility] 100 mg 1-12 capsule by [facility] of capsule 00:00: mouth (two) Medical times [facility] daily as needed for Constipati on. docusate 2017-0 Yes 100mg Take 1 [facility] 100 mg 1-12 capsule by [facility] capsule 00:00: mouth (two) Medical times [facility] daily as needed for Constipati on. docusate 2017-0 Yes 100mg Take 1 [facility] 100 mg 1-12 capsule by [facility] capsule 00:00: mouth (two) Medical times [facility] daily as needed for Constipati on. docusate 2017-0 Yes 100mg Take 1 [facility] 100 mg 1-12 capsule by [facility] capsule 00:00: mouth (two) Medical times [facility] daily as needed for Constipati on. docusate 2017-0 Yes 100mg Take 1 [facility] 100 mg 1-12 capsule by [facility] capsule 00:00: mouth (two) Medical times [facility] daily as needed for Constipati on. docusate 2017-0 Yes 100mg Take 1 [facility] 100 mg 1-12 capsule by [facility] capsule 00:00: mouth (two) Medical times [facility] daily as needed for Constipati on. docusate 2017-0 Yes 100mg Take 1 [facility] 100 mg 1-12 capsule by [facility] capsule 00:00: mouth (two) Medical times [facility] daily as needed for Constipati on. docusate 2017-0 Yes 100mg Take 1 [facility] 100 mg 1-12 capsule by [facility] capsule 00:00: mouth (two) Medical times [facility] daily as needed for Constipati on. docusate 2017-0 Yes 100mg Take 1 [facility] 100 mg 1-12 capsule by [facility] capsule 00:00: mouth (two) Medical times [facility] daily as needed for Constipati on. docusate 2017-0 Yes 100mg Take 1 [facility] 100 mg 1-12 capsule by [facility] capsule 00:00: mouth (two) Medical times [facility] daily as needed for Constipati on. docusate 2017-0 Yes 100mg Take 1 [facility] 100 mg 1-12 capsule by [facility] capsule 00:00: mouth (two) Medical times [facility] daily as needed for Constipati on. docusate 2017-0 Yes 100mg Take 1 [facility] 100 mg 1-12 capsule by [facility] capsule 00:00: mouth (two) Medical times [facility] daily as needed for Constipati on. docusate 2017-0 Yes 100mg Take 1 [facility] 100 mg 1-12 capsule by [facility] of capsule 00:00: mouth (two) Medical times [facility] daily as needed for Constipati on. docusate 2017-0 Yes 100mg Take 1 [facility] 100 mg 1-12 capsule by [facility] of capsule 00:00: mouth (two) Medical times [facility] daily as needed for Constipati on. docusate 2017-0 Yes 100mg Take 1 [facility] 100 mg 1-12 capsule by [facility] of capsule 00:00: mouth (two) Medical times [facility] daily as needed for Constipati on. docusate 2017-0 Yes 100mg Take 1 [facility] 100 mg 1-12 capsule by [facility] of capsule 00:00: mouth (two) Medical times [facility] daily as needed for Constipati on. docusate 2017-0 Yes 100mg Take 1 [facility] 100 mg 1-12 capsule by [facility] of capsule 00:00: mouth (two) Medical times [facility] daily as needed for Constipati on. docusate 2017-0 Yes 100mg Take 1 [facility] 100 mg 1-12 capsule by [facility] capsule 00:00: mouth (two) Medical times [facility] daily as needed for Constipati on. docusate 2017-0 Yes 100mg Take 1 [facility] 100 mg 1-12 capsule by [facility] of capsule 00:00: mouth (two) Medical times [facility] daily as needed for Constipati on. docusate 2017-0 Yes 100mg Take 1 [facility] 100 mg 1-12 capsule by [facility] of capsule 00:00: mouth (two) Medical times [facility] daily as needed for Constipati on. docusate 2017-0 Yes 100mg Take 1 [facility] 100 mg 1-12 capsule by [facility] of capsule 00:00: mouth (two) Medical times [facility] daily as needed for Constipati on. docusate 2017-0 Yes 100mg Take 1 [facility] 100 mg 1-12 capsule by [facility] of capsule 00:00: mouth (two) Medical times [facility] daily as needed for Constipati on. docusate 2017-0 Yes 100mg Take 1 [facility] 100 mg 1-12 capsule by [facility] of capsule 00:00: mouth (two) Medical times [facility] daily as needed for Constipati on. docusate 2017-0 Yes 100mg Take 1 [facility] 100 mg 1-12 capsule by ity of capsule 00:00: mouth (two) Medical times Branch daily as needed for Constipati on. docusate 2017-0 Yes 100mg Take 1 [facility] 100 mg 1-12 capsule by ity of capsule 00:00: mouth (two) Medical times Branch daily as needed [...] capsule by ity of capsule 00:00: mouth (two) Medical times Branch daily as needed for Constipati on. docusate 0 Yes 100mg Take 1 [facility] 100 mg 1-12 capsule by ity of capsule 00:00: mouth (two) Medical times Branch daily as needed for Constipati on. docusate 0 Yes 100mg Take 1 [facility] 100 mg 1-12 capsule by ity of capsule 00:00: mouth (two) Medical times Branch daily as needed for Constipati on. docusate 2016-0 Yes 100mg Take 1 [facility] 100 mg 1-12 capsule by ity of capsule 00:00: mouth 2 (two) Medical times Branch daily as needed for Constipati on. docusate 0 Yes 100mg Take 1 [facility] 100 mg 1-12 capsule by ity of capsule 00:00: mouth (two) Medical times Branch daily as needed for Constipati on. Aspirin 2015-06 No Notes: Do [facility] 1-25 not crush l 23:16: or chew. [place] 00 (Same As: Ecotrin) Aspirin 2015-06 No Notes: Do [facility] 1-25 not crush l 23:16: or chew. [place] 00 (Same As: Ecotrin) Aspirin 2015-06 No Notes: Do [facility] 1-25 not crush l 23:16: or chew. [place] 00 (Same As: Ecotrin) Saline 2015-06 No Notes: [facility] Flush 0.9% 1-25 (Same as: l 21:48: BD [place] Posiflush) Saline 2015-06 No Notes: [facility] Flush 0.9% 1-25 (Same as: l 21:48: BD [place] Posiflush) Saline 2015-06 No Notes: [facility] Flush 0.9% 1-25 (Same as: l 21:48: BD [place] 00 Posiflush) Plavix 2015-06 No Notes: [facility] 1-15 (Same As: l 15:00: Plavix) [place] Plavix 2015-06 No Notes: [facility] 1-15 (Same As: l 15:00: Plavix) [place] Plavix 2015-06 No Notes: [facility] 1-15 (Same As: l 15:00: Plavix) metoprolol 2015-06 Yes 25 mg = 1 [...] [facility] 1-14 Tablet l 22:30: should not [place] 00 be chewed or crushed. (Same as: [...] 1-14 Take with l Tablet 15:00: food. [place] 00 Lisinopril 2015-06 No Notes: [facility] 1-14 (Same as: l 15:00: Prinivil, [place] 00 Zestril) Aspirin 325 2015-06 No Notes: Bc jae MG Oral 1-14 Take with l Tablet 15:00: food. Lisinopril 2015-06 No Notes: [facility] 1-14 (Same as: l 15:00: Prinivil, [place] Zestril) Aspirin 325 2015-06 No Notes: Bc jae MG Oral 1-14 Take with l Tablet 15:00: food. atorvastati 2015-06 Yes 40 mg = 1 M emoria n 40 mg 1-14 tab, PO, l oral tablet 09:08: Bedtime, # [place] 00 90 tab, 1 Refill(s) atorvastati 2015-06 Yes 40 mg = 1 M emoria n 40 mg 1-14 tab, PO, l oral tablet 09:08: Bedtime, # [place] 00 90 tab, 1 Refill(s) atorvastati 2015-06 Yes 40 mg = 1 M emoria n 40 mg 1-14 tab, PO, l oral tablet 09:08: Bedtime, # [place] 00 90 tab, 1 Refill(s) Alprazolam 2015-06 No Notes: [facility] 1 MG Oral 1-14 With food l Tablet 04:49: or milk [place] [Xanax] 00 (Same as: Xanax) Alprazolam 2015-06 No Notes: [facility] 1 MG Oral 1-14 With food l Tablet 04:49: or milk [place] [Xanax] 00 (Same as: Xanax) Alprazolam 2015-06 No Notes: [facility] 1 MG Oral 1-14 With food l Tablet 04:49: or milk [place] [Xanax] 00 (Same as: Xanax) Lipitor 2015-06 No Notes: [facility] 1-14 (Same as: l 03:00: Lipitor) Clindamycin 2015-06 No Notes: Bc jae 1-14 (Same As: l 03:00: Cleocin) Saline 2015-06 No Notes: [facility] Flush 0.9% 1-14 preservati l 03:00: ve free. Lipitor 2015-06 No Notes: [facility] 1-14 (Same as: l 03:00: Lipitor) [place] 00 Clindamycin 2015-06 No Notes: Bc jae 1-14 (Same As: l 03:00: Cleocin) Saline 2015-06 No Notes: [facility] Flush 0.9% 1-14 preservati l 03:00: ve free. Lipitor 2015-06 No Notes: [facility] 1-14 (Same as: l 03:00: Lipitor) [place] 00 Clindamycin 2015-06 No Notes: Bc jae 1-14 (Same As: l 03:00: Cleocin) Saline 2015-06 No Notes: [facility] Flush 0.9% 1-14 preservati l 03:00: ve free. Insulin, 2015-06 No Notes: [facility] Aspart, 1-14 Roll in l Human 02:27: palms of [place] 00 hands gently; Do not shake vigorously . (Same as: NovoLOG) "single patient use only" WASTE: F/P - Black; E - [place] Trash Bin Stable for 28 days at room temperatur e. Expires in days from ____Date Glucagon 2015-06 No 1 mg, [facility] 1-14 Route: IM, l 02:27: Drug form: [place] 00 PDR/INJ, PRN, Dosing Weight 127.273, kg, PRN Blood Glucose Results, Start date: 05/05/16 20:27:00 GEOGRAPHIC INFORMATION SYSTEMS DIRECTOR, Duration: 30 day, Stop date: 06/04/16 20:26:00 GEOGRAPHIC INFORMATION SYSTEMS DIRECTOR Dextrose 2015-06 No 12.5 gm, [facility] 50% Syringe -14 25 mL, l 02:27: Route: [place] 00 IVP, Drug Form: INJ, Dosing Weight 127.273, kg, PRN, PRN Blood Glucose Results, Start date: 05/05/16 20:27:00 GEOGRAPHIC INFORMATION SYSTEMS DIRECTOR, Duration: 30 day, Stop date: 06/04/16 20:26:00 GEOGRAPHIC INFORMATION SYSTEMS DIRECTOR Insulin, 2015-06 No Notes: [facility] Aspart, 1-14 Roll in l Human 02:27: palms of [place] 00 hands gently; Do not shake vigorously . (Same as: NovoLOG) "single patient use only" WASTE: F/P - Black; E - [place] Trash Bin Stable for 28 days at room temperatur e. Expires in days from ____Date Glucagon 2015-06 No 1 mg, [facility] 1-14 Route: IM, l 02:27: Drug form: [place] 00 PDR/INJ, PRN, Dosing Weight 127.273, kg, PRN Blood Glucose Results, Start date: 05/05/16 20:27:00 GEOGRAPHIC INFORMATION SYSTEMS DIRECTOR, Duration: 30 day, Stop date: 06/04/16 20:26:00 GEOGRAPHIC INFORMATION SYSTEMS DIRECTOR Dextrose 2015-06 No 12.5 gm, [facility] 50% Syringe -14 25 mL, l 02:27: Route: [place] 00 IVP, Drug Form: INJ, Dosing Weight 127.273, kg, PRN, PRN Blood Glucose Results, Start date: 05/05/16 20:27:00 GEOGRAPHIC INFORMATION SYSTEMS DIRECTOR, Duration: 30 day, Stop date: 06/04/16 20:26:00 GEOGRAPHIC INFORMATION SYSTEMS DIRECTOR Insulin, 2015-06 No Notes: [facility] Aspart, 1-14 Roll in l Human 02:27: palms of [place] 00 hands gently; Do not shake vigorously . (Same as: NovoLOG) "single patient use only" WASTE: F/P - Black; E - Municipal Trash Bin Stable for 28 days at room temperatur e. Expires in days from ____Date Glucagon 2015-06 No 1 mg, [facility] 14 Route: IM, l 02:27: Drug form: [place] 00 PDR/INJ, PRN, Dosing Weight 127.273, kg, PRN Blood Glucose Results, Start date: 05/05/16 20:27:00 GEOGRAPHIC INFORMATION SYSTEMS DIRECTOR, Duration: 30 day, Stop date: 06/04/16 20:26:00 GEOGRAPHIC INFORMATION SYSTEMS DIRECTOR Dextrose 2015-06 No 12.5 gm, [facility] 50% Syringe -14 25 mL, l 02:27: Route: [place] 00 IVP, Drug Form: INJ, Dosing Weight 127.273, kg, PRN, PRN Blood Glucose Results, Start date: 05/05/16 20:27:00 GEOGRAPHIC INFORMATION SYSTEMS DIRECTOR, Duration: 30 day, Stop date: 06/04/16 20:26:00 GEOGRAPHIC INFORMATION SYSTEMS DIRECTOR Morphine 2015-06 No Notes: [facility] 1-14 (Same l 02:00: as:MORPhin [place] 00 e Sulfate) Morphine 2015-06 No Notes: [facility] 1-14 (Same l 02:00: as:MORPhin [place] 00 e Sulfate) Morphine 2015-06 No Notes: [facility] 1-14 (Same l 02:00: as:MORPhin [place] 00 e Sulfate) Plavix 2015-06 No Notes: [facility] 1-14 (Same As: l 01:58: Plavix) [place] 00 Plavix 2015-06 No Notes: [facility] 1-14 (Same As: l 01:58: Plavix) [place] 00 Plavix 2015-06 No Notes: [facility] 1-14 (Same As: l 01:58: Plavix) [place] 00 Saline 2015-06 No Notes: [facility] Flush 0.9% 1-14 (Same as: l 01:55: BD [place] 00 Posiflush) Albuterol 2015-06 No Notes: Mem[facility] a 0.833 MG/ML 1-14 (Same as: l / 01:55: Duoneb) [place] Ipratropium 00 Str[place]ane 0.167 MG/ML Inhalant Solution Nystatin 2015-06 No Notes: [facility] 100 UNT/MG 1-14 (Same l Topical 01:55: as:Mycosta Herm ca Powder 00 tin, Nilstat) For external use only. Saline 2015-06 No Notes: [facility] Flush 0.9% 1-14 (Same as: l 01:55: BD [place] 00 Posiflush) Albuterol 2015-06 No Notes: [facility] a 0.833 MG/ML 1-14 (Same as: l / 01:55: Duoneb) [place] Ipratropium 00 Str[place] 0.167 MG/ML Inhalant Solution Nystatin 2015-06 No Notes: [facility] 100 UNT/MG 1-14 (Same l Topical 01:55: as:Mycosta Herm ca Powder 00 tin, Nilstat) For external use only. Saline 2015-06 No Notes: [facility] Flush 0.9% 1-14 (Same as: l 01:55: BD [place] 00 Posiflush) Albuterol 2015-06 No Notes: [facility] a 0.833 MG/ML 1-14 (Same as: l / 01:55: Duoneb) [place] Ipratropium 00 Str[place]ane 0.167 MG/ML Inhalant Solution Nystatin 2015-06 No Notes: [facility] 100 UNT/MG 07-06 (Same l Topical 01:55: as:Mycosta Herm ca Powder 00 tin, Nilstat) For external use only. Nitroglycer 2015-06 No Notes: Bc jae in 07-06 (Same l 01:54: as:Tridil) [place] 00 Final conc = 0.4 mg/ml. Premix bottle. Nitroglycer 2015-06 No Notes: Bc jae in 07-06 (Same l 01:54: as:Tridil) [place] 00 Final conc = 0.4 mg/ml. Premix bottle. Nitroglycer 2015-06 No Notes: Bc jae in 07-06 (Same l 01:54: as:Tridil) [place] 00 Final conc = 0.4 mg/ml. Premix bottle. heparin 2015-06 No 500 mL, [facility] additive 07-06 Rate: l 25,000 unit 01:43: 22.73 Ashley nn [12 00 ml/hr, unit/kg/hr] Infuse + Premix over: 22 Diluent hr, Route: Dextrose 5% IV, Dosing 500 mL Weight 94.7 kg, Total Volume: 500 mL, Start date: 05/05/16 19:43:00 GEOGRAPHIC INFORMATION SYSTEMS DIRECTOR, Duration: 30 day, Stop date: 06/04/16 19:42:00 GEOGRAPHIC INFORMATION SYSTEMS DIRECTOR Heparin 60 2015-06 No Route: [facility] unit/kg 07-06 IVP, PRN, l Bolus 01:43: 5,800 [place] (Heparin 00 unit, 5.8 Dosing mL, Drug Weight) form: INJ, PRN, Heparin Protocol, Start date: 05/05/16 19:43:00 GEOGRAPHIC INFORMATION SYSTEMS DIRECTOR Stop date: 06/04/16 19:42:00 GEOGRAPHIC INFORMATION SYSTEMS DIRECTOR Heparin 30 2015-06 No Route: [facility] unit/kg 14 IVP, PRN, l Bolus 01:43: 2,900 [place] (Heparin 00 unit, 2.9 Dosing mL, Drug Weight) form: INJ, PRN, Heparin Protocol, Start date: 05/05/16 19:43:00 GEOGRAPHIC INFORMATION SYSTEMS DIRECTOR Stop date: 06/04/16 19:42:00 GEOGRAPHIC INFORMATION SYSTEMS DIRECTOR Heparin - 2015-06 No 4,000 [facility] one time 1-14 unit, 4 l bolus for 01:43: mL, Route: [facility] ACS 00 IVP, Drug form: INJ, ONCE, Dosing Weight 127.273, kg, Priority: STAT, Start date: 05/05/16 19:43:00 GEOGRAPHIC INFORMATION SYSTEMS DIRECTOR, Stop date: 05/05/16 19:43:00 GEOGRAPHIC INFORMATION SYSTEMS DIRECTOR heparin 2015-06 No 500 mL, [facility] additive 1-14 Rate: l 25,000 unit 01:43: 22.73 Ashley nn [12 00 ml/hr, unit/kg/hr] Infuse + Premix over: 22 Diluent hr, Route: Dextrose 5% IV, Dosing 500 mL Weight 94.7 kg, Total Volume: 500 mL, Start date: 05/05/16 19:43:00 GEOGRAPHIC INFORMATION SYSTEMS DIRECTOR, Duration: 30 day, Stop date: 06/04/16 19:42:00 GEOGRAPHIC INFORMATION SYSTEMS DIRECTOR Heparin 60 2015-06 No Route: [facility] unit/kg 1-14 IVP, PRN, l Bolus 01:43: 5,800 [place] (Heparin 00 unit, 5.8 Dosing mL, Drug Weight) form: INJ, PRN, Heparin Protocol, Start date: 05/05/16 19:43:00 GEOGRAPHIC INFORMATION SYSTEMS DIRECTOR Stop date: 06/04/16 19:42:00 GEOGRAPHIC INFORMATION SYSTEMS DIRECTOR Heparin 30 2015-06 No Route: [facility] unit/kg 1-14 IVP, PRN, l Bolus 01:43: 2,900 [place] (Heparin 00 unit, 2.9 Dosing mL, Drug Weight) form: INJ, PRN, Heparin Protocol, Start date: 05/05/16 19:43:00 GEOGRAPHIC INFORMATION SYSTEMS DIRECTOR Stop date: 06/04/16 19:42:00 GEOGRAPHIC INFORMATION SYSTEMS DIRECTOR Heparin - 2015-06 No 4,000 [facility] one time 1-14 unit, 4 l bolus for 01:43: mL, Route: [facility] ACS 00 IVP, Drug form: INJ, ONCE, Dosing Weight 127.273, kg, Priority: STAT, Start date: 05/05/16 19:43:00 GEOGRAPHIC INFORMATION SYSTEMS DIRECTOR, Stop date: 05/05/16 19:43:00 GEOGRAPHIC INFORMATION SYSTEMS DIRECTOR heparin 2015-06 No 500 mL, [facility] additive 1-14 Rate: l 25,000 unit 01:43: 22.73 [place] nn [12 00 ml/hr, unit/kg/hr] Infuse + Premix over: 22 Diluent hr, Route: Dextrose 5% IV, Dosing 500 mL Weight 94.7 kg, Total Volume: 500 mL, Start date: 05/05/16 19:43:00 GEOGRAPHIC INFORMATION SYSTEMS DIRECTOR, Duration: 30 day, Stop date: 06/04/16 19:42:00 GEOGRAPHIC INFORMATION SYSTEMS DIRECTOR Heparin 60 2015-06 No Route: [facility] unit/kg 1-14 IVP, PRN, l Bolus 01:43: 5,800 [place] (Heparin 00 unit, 5.8 Dosing mL, Drug Weight) form: INJ, PRN, Heparin Protocol, Start date: 05/05/16 19:43:00 GEOGRAPHIC INFORMATION SYSTEMS DIRECTOR Stop date: 06/04/16 19:42:00 GEOGRAPHIC INFORMATION SYSTEMS DIRECTOR Heparin 30 2015-06 No Route: [facility] unit/kg 1-14 IVP, PRN, l Bolus 01:43: 2,900 [place] (Heparin 00 unit, 2.9 Dosing mL, Drug Weight) form: INJ, PRN, Heparin Protocol, Start date: 05/05/16 19:43:00 GEOGRAPHIC INFORMATION SYSTEMS DIRECTOR Stop date: 06/04/16 19:42:00 GEOGRAPHIC INFORMATION SYSTEMS DIRECTOR Heparin - 2015-06 No 4,000 [facility] one time 1-14 unit, 4 l bolus for 01:43: mL, Route: [facility] ACS 00 IVP, Drug form: INJ, ONCE, Dosing Weight 127.273, kg, Priority: STAT, Start date: 05/05/16 19:43:00 GEOGRAPHIC INFORMATION SYSTEMS DIRECTOR, Stop date: 05/05/16 19:43:00 GEOGRAPHIC INFORMATION SYSTEMS DIRECTOR Morphine 2015-06 No Notes: [facility] 1-14 (Same l 01:25: as:MORPhin [place] 00 e Sulfate) Morphine 2015-06 No Notes: [facility] 1-14 (Same l 01:25: as:MORPhin [place] 00 e Sulfate) Morphine 2015-06 No Notes: [facility] 1-14 (Same l 01:25: as:MORPhin [place] 00 e Sulfate) Nitroglycer 2015-06 No 1 inch, Mem oria in 0.02 07-05 Route: l MG/MG 23:40: TOP, [place] Topical 00 Dosing Ointment Weight 127.273, kg, ONCE, STAT, Start date: 05/05/16 17:40:00 GEOGRAPHIC INFORMATION SYSTEMS DIRECTOR, Stop date: 05/05/16 17:40:00 GEOGRAPHIC INFORMATION SYSTEMS DIRECTOR Nitroglycer 2015-06 No 1 inch, Mem oria in 0.02 1-13 Route: l MG/MG 23:40: TOP, [place] Topical 00 Dosing Ointment Weight 127.273, kg, ONCE, STAT, Start date: 05/05/16 17:40:00 GEOGRAPHIC INFORMATION SYSTEMS DIRECTOR, Stop date: 05/05/16 17:40:00 GEOGRAPHIC INFORMATION SYSTEMS DIRECTOR Nitroglycer 2016- No 1 inch, Mem oria in 0.02 -13 Route: l MG/MG 23:40: TOP, [place] Topical 00 Dosing Ointment Weight 127.273, kg, ONCE, STAT, Start date: 05/05/16 17:40:00 GEOGRAPHIC INFORMATION SYSTEMS DIRECTOR, Stop date: 05/05/16 17:40:00 GEOGRAPHIC INFORMATION SYSTEMS DIRECTOR Aspirin 81 2015-06 No 243 mg, Bc jae MG Chewable - Route: PO, l Tablet 23:17: Drug form: [place] nn 00 CHE[place]AB, ONCE, Dosing Weight 127.273, kg, Priority: STAT, Start date: 05/05/16 17:17:00 GEOGRAPHIC INFORMATION SYSTEMS DIRECTOR, Stop date: 05/05/16 17:17:00 GEOGRAPHIC INFORMATION SYSTEMS DIRECTOR Aspirin 81 2015-06 No 243 mg, Bc jae MG Chewable - Route: PO, l Tablet 23:17: Drug form: Ashley nn 00 CHE[place]AB, ONCE, Dosing Weight 127.273, kg, Priority: STAT, Start date: 05/05/16 17:17:00 GEOGRAPHIC INFORMATION SYSTEMS DIRECTOR, Stop date: 05/05/16 17:17:00 GEOGRAPHIC INFORMATION SYSTEMS DIRECTOR Aspirin 81 2015- No 243 mg, Bc jae MG Chewable - Route: PO, l Tablet 23:17: Drug form: [place] nn 00 CHE[place], ONCE, Dosing Weight 127.273, kg, Priority: STAT, Start date: 05/05/16 17:17:00 GEOGRAPHIC INFORMATION SYSTEMS DIRECTOR, Stop date: 05/05/16 17:17:00 GEOGRAPHIC INFORMATION SYSTEMS DIRECTOR Morphine 2015- No 4 mg, [facility] 07-05 Route: l 23:15: IVP, ONCE, [place] 00 Dosing Weight 127.273, kg, Priority: STAT, Start date: 05/05/16 17:15:00 GEOGRAPHIC INFORMATION SYSTEMS DIRECTOR, Stop date: 05/05/16 17:15:00 GEOGRAPHIC INFORMATION SYSTEMS DIRECTOR Morphine 2015- No 4 mg, [facility] 07-05 Route: l 23:15: IVP, ONCE, [place] 00 Dosing Weight 127.273, kg, Priority: STAT, Start date: 05/05/16 17:15:00 GEOGRAPHIC INFORMATION SYSTEMS DIRECTOR, Stop date: 05/05/16 17:15:00 GEOGRAPHIC INFORMATION SYSTEMS DIRECTOR Morphine 2015-06 No 4 mg, [facility] 07-05 Route: l 23:15: IVP, ONCE, Dosing Weight 127.273, kg, Priority: STAT, Start date: 05/05/16 17:15:00 GEOGRAPHIC INFORMATION SYSTEMS DIRECTOR, Stop date: 05/05/16 17:15:00 GEOGRAPHIC INFORMATION SYSTEMS DIRECTOR Saline 2015-06 No Notes: [facility] Flush 0.9% 1-13 preservati l 22:55: ve free. Saline 2015-06 No Notes: [facility] Flush 0.9% 1-13 preservati l 22:55: ve free. Saline 2015-06 No Notes: [facility] Flush 0.9% 1-13 preservati l 22:55: ve free. Acetaminoph 2015-06 No 1 - 2 tab, [...] e Sulfate) Morphine 2015-06 No Notes: [facility] - (Same l 00:51: as:MORPhin [place] 00 e Sulfate) Zofran 2015-06 No Notes: [facility] 06-25 (Same as: l 23:23: Zofran) [place] 00 MEDICATION WASTE Product Size: 4 mg Product Wasted: ___ mg Morphine 2015-06 No Notes: [facility] 06-25 (Same l 23:23: as:MORPhin [place] 00 e Sulfate) Zofran 2015-06 No Notes: [facility] 06-25 (Same as: l 23:23: Zofran) [place] 00 MEDICATION WASTE Product Size: 4 mg Product Wasted: ___ mg Morphine 2015-06 No Notes: [facility] 06-25 (Same l 23:23: as:MORPhin [place] 00 e Sulfate) Zofran 2015-06 No Notes: [facility] 06-25 (Same as: l 23:23: Zofran) [place] 00 MEDICATION WASTE Product Size: 4 mg Product Wasted: ___ mg Morphine 2015-06 No Notes: [facility] 06-25 (Same l 23:23: as:MORPhin [place] 00 e Sulfate) Saline 2015-06 No Notes: [facility] Flush 0.9% 1-03 (Same as: l 23:07: BD [place] 00 Posiflush) Saline 2015-06 No Notes: [facility] Flush 0.9% 1-03 (Same as: l 23:07: BD [place] 00 Posiflush) Saline 2015-06 No Notes: [facility] Flush 0.9% 1-03 (Same as: l 23:07: BD [place] 00 Posiflush) furosemide 2015-06 Yes 20mg QD Take [address] [facility] (LASIX) 20 0-11 by mouth [facility] tablet 09:11: daily. [facility] potassium 2015-06 Yes 20meq QD Take [address] [facility] chloride SA 0-11 mEq by [facility] (K-DUR,KLOR 09:11: mouth Medic al -CON) 20 14 daily . Center MEQ tablet hydrOXYzine 2015-06 Yes 25mg Take [address] [facility] (ATARAX) 25 0-11 by mouth [facility] tablet 09:11: every Medical 14 night as Center needed (Sleep). furosemide 2015-06 Yes 20mg QD Take [address] (LASIX) 20 0-11 by [facility] tablet 09:11: daily. [facility] potassium 2015-06 Yes 20meq QD Take [address] [facility] chloride SA 0-11 mEq [facility] (K-DUR,KLOR 09:11: mouth Medic al -CON) 20 14 daily . Center MEQ tablet hydrOXYzine 2015-06 Yes 25mg Take [address] [facility] (ATARAX) 25 0-11 by mouth [facility] MG tablet 09:11: every Medical 14 night as Center needed (Sleep). furosemide 2015-06 Yes 20mg QD Take [address] (LASIX) 20 0-11 by [facility] tablet 09:11: daily. [facility] potassium 2015-06 Yes 20meq QD Take [address] [facility] chloride SA 0-11 mEq [facility] (K-DUR,KLOR 09:11: mouth Medic al -CON) 20 14 daily . Center MEQ tablet hydrOXYzine 2015-06 Yes 25mg Take [address] [facility] (ATARAX) 25 0-11 by mouth [facility] tablet 09:11: every Medical 14 night as Center needed (Sleep). furosemide 2015-06 Yes 20mg QD Take [address] (LASIX) 20 0-11 by [facility] tablet 09:11: daily. Medica l 14 [place] potassium 2015-06 Yes 20meq QD Take [address] [facility] chloride SA 0-11 mEq by [facility] (K-DUR,KLOR 09:11: mouth Medic al -CON) 20 14 daily . Center MEQ tablet hydrOXYzine 2015-06 Yes 25mg Take [address] [facility] (ATARAX) 25 0-11 by mouth [facility] MG tablet 09:11: every Medical 14 night [...] Refill(s) Morphine 2016-0 No 4 mg, [facility] 9-13 Route: l 13:44: IVP, ONCE, [place] 00 Dosing Weight 129.091, kg, Priority: STAT, Start date: 03/05/16 8:44:00 CDT, Stop date: 03/05/16 8:44:00 CDT Morphine 2016-0 No 4 mg, [facility] 9-13 Route: l 13:44: IVP, ONCE, Dosing Weight 129.091, kg, Priority: STAT, Start date: 03/05/16 8:44:00 CDT, Stop date: 03/05/16 8:44:00 CDT Morphine 2016-0 No 4 mg, [facility] 9- Route: l 13:44: IVP, ONCE, Dosing Weight 129.091, kg, Priority: STAT, Start date: 03/05/16 8:44:00 CDT, Stop date: 03/05/16 8:44:00 CDT Ondansetron 2016-0 No 4 mg, [facility] 9-13 Route: l 12:35: IVP, Drug [place] 00 form: INJ, ONCE, Dosing Weight 129.091, kg, Priority: STAT, Start date: 03/05/16 7:35:00 CDT, Stop date: 03/05/16 7:35:00 CDT Ondansetron 2016-0 No 4 mg, [facility] 9-13 Route: l 12:35: IVP, Drug [place] 00 form: INJ, ONCE, Dosing Weight 129.091, kg, Priority: STAT, Start date: 03/05/16 7:35:00 CDT, Stop date: 03/05/16 7:35:00 CDT Ondansetron 2016-0 No 4 mg, [facility] 9-13 Route: l 12:35: IVP, Drug [facility] 00 form: INJ, ONCE, Dosing Weight 129.091, kg, Priority: STAT, Start date: 03/05/16 7:35:00 CDT, Stop date: 03/05/16 7:35:00 CDT Aspirin 2016-0 No 324 mg, [facility] 9-13 Route: PO, l 12:22: ONCE, Dosing Weight 129.091, kg, Priority: STAT, Start date: 03/05/16 7:22:00 CDT, Stop date: 03/05/16 7:22:00 CDT Morphine 2016-0 No 2 mg, [facility] 9-13 Route: l 12:22: IVP, ONCE, Dosing Weight 129.091, kg, Priority: STAT, Start date: 03/05/16 7:22:00 CDT, Stop date: 03/05/16 7:22:00 CDT Saline 2015-0 No Notes: [facility] Flush 0.9% 9-13 (Same as: l 12:22: BD [place] 00 Posiflush) Aspirin 2015-0 No 324 mg, [...] Saline 2015-0 No Notes: [facility] Flush 0.9% 9-13 (Same as: l 12:22: BD [place] Posiflush) Aspirin 2015-0 No 324 mg, [facility] 9-13 Route: PO, l 12:22: ONCE, Dosing Weight 129.091, kg, Priority: STAT, Start date: 03/05/16 7:22:00 CDT, Stop date: 03/05/16 7:22:00 CDT Morphine 2016-0 No 2 mg, [facility] 9-13 Route: l 12:22: IVP, ONCE, Dosing Weight 129.091, kg, Priority: STAT, Start date: 03/05/16 7:22:00 CDT, Stop date: 03/05/16 7:22:00 CDT Saline 0 No Notes: [facility] Flush 0.9% 9-13 (Same as: l 12:22: BD [place] 00 Posiflush) Dilaudid No Notes: [facility] 9-10 Same as: l 12:40: Dilaudid [place] 00 Dilaudid 0 No Notes: [facility] 9-10 Same as: l 12:40: Dilaudid [place] 00 Dilaudid No Notes: [facility] 9- Same as: l 12:40: Dilaudid [place] 00 Ketorolac 2015-0 No 4 days [facility] ia -10 l 10:25: MEDICATION [place] 00 WASTE Product Size: 30 mg Product Wasted: ___ mg Morphine No Notes: [facility] 03-02 (Same l 10:25: as:MORPhin [place] 00 e Sulfate) Ondansetron No Notes: Bc jae 03-02 (Same as: l 10:25: Zofran) [place] 00 MEDICATION WASTE Product Size: 4 mg Product Wasted: ___ mg Saline No Notes: [facility] Flush 0.9% 03-02 (Same as: l 10:25: BD [place] 00 Posiflush) Sodium No 1,000 mL, Memori a Chloride 03-02 2,000 l 0.154 10:25: ml/hr, [facility] MEQ/ML 00 Infuse Injectable Over: 30 Solution minutes, Route: IV, 1,000, Drug form: INJ, ONCE, Priority: STAT, Dosing Weight 128.636 kg, Start date: 03/02/16 5:25:00 CDT, Duration: 1 doses or times, Stop date: 03/02/16 5:25:00 CDT Ketorolac 2015-0 No 4 days [facility] - l 10:25: MEDICATION [place] 00 WASTE Product Size: 30 mg Product Wasted: ___ mg Morphine No Notes: [facility] 9- (Same l 10:25: as:MORPhin [place] 00 e Sulfate) Ondansetron No Notes: Bc jae 03-02 (Same as: l 10:25: Zofran) [place] 00 MEDICATION WASTE Product Size: 4 mg [...] days Mem[facility] ia -10 l 10:25: MEDICATION [place] 00 WASTE Product Size: 30 mg Product Wasted: ___ mg Morphine No Notes: [facility] 9-10 (Same l 10:25: as:MORPhin [place] 00 e Sulfate) Ondansetron No Notes: Bc jae 9-10 (Same as: l 10:25: Zofran) [place] 00 MEDICATION WASTE Product Size: 4 mg Product Wasted: ___ mg Saline No Notes: [facility] Flush 0.9% 9-10 (Same as: l 10:25: BD [place] 00 Posiflush) Sodium No 1,000 mL, Memori a Chloride 9-10 2,000 l 0.154 10:25: ml/hr, [place] MEQ/ML 00 Infuse Injectable Over: 30 Solution [...] [facility] 8-28 Tablet l 12:30: should not [place] 00 be chewed or crushed. (Same as: Protonix) Lipitor No Notes: [facility] 8-28 (Same as: l 02:00: Lipitor) [place] 00 Lipitor No Notes: [facility] 8-28 (Same as: l 02:00: Lipitor) [place] 00 Lipitor No Notes: [facility] 8-28 (Same as: l 02:00: Lipitor) [place] Morphine No Notes: [facility] 8-27 (Same l 16:54: as:MORPhin Freddy 00 e Sulfate) Morphine No Notes: [facility] 8-27 (Same l 16:54: as:MORPhin [place] 00 e Sulfate) Morphine No Notes: [facility] 8-27 (Same l 16:54: as:MORPhin [place] 00 e Sulfate) Lovenox No Notes: [facility] 8-27 (Same as: l 15:00: Lovenox) [place] 00 Lovenox No Notes: [facility] 8-27 (Same as: l 15:00: Lovenox) [place] 00 Lovenox No Notes: [facility] 8-27 (Same as: l 15:00: Lovenox) [place] 00 Lisinopril No Notes: Memor ia 8-27 (Same as: l 14:55: Prinivil, [place] 00 Zestril) Lisinopril No Notes: [facility] ia 8-27 (Same as: l 14:55: Prinivil, [place] 00 Zestril) Lisinopril No Notes: [facility] 8-27 (Same as: l 14:55: Prinivil, [place] 00 Zestril) Imdur No Notes: [facility] 8-27 (Same l 14:54: as:Imdur) [place] 00 "Do Not Crush" Take on empty stomach/ full glass of water. Do not crush Plavix No Notes: [facility] 8-27 (Same As: l 14:54: Plavix) [place] 00 Aspirin 81 No Notes: Do Me moria MG Enteric 8- not crush l Coated 14:54: or chew. [place] Tablet 00 (Same As: Ecotrin) Imdur No Notes: [facility] 8-27 (Same l 14:54: as:Imdur) [place] 00 "Do Not Crush" Take on empty stomach/ full glass of water. Do not crush Plavix No Notes: [facility] 8-27 (Same As: l 14:54: Plavix) [place] 00 Aspirin 81 No Notes: Do Me moria MG Enteric 8-27 not crush l Coated 14:54: or chew. [place] Tablet 00 (Same As: Ecotrin) Imdur No Notes: [facility] 8-27 (Same l 14:54: as:Imdur) [place] 00 "Do Not Crush" Take on empty stomach/ full glass of water. Do not crush Plavix 0 No Notes: [facility] 8-27 (Same As: l 14:54: Plavix) [place] 00 Aspirin 81 No Notes: Do Me moria MG Enteric 8-27 not crush l Coated 14:54: or chew. [place] Tablet 00 (Same As: Ecotrin) Zofran ODT [...] ia 8-27 (Same as: l 14:25: Zofran [place] 00 ODT) Nitroglycer No Notes: Bc jae in 0.4 MG 8-27 (Same l Sublingual 14:25: as:Nitroqu H ermann Tablet 00 ick, [Nitrostat] Nitrostat) "Do Not Crush" Sublingual tablet Alprazolam No Notes: Memor ia 1 MG Oral 8-27 With food l Tablet 14:23: or milk [place] [Xanax] 00 (Same as: Xanax) Alprazolam No Notes: Memor ia 1 MG Oral 8-27 With food l Tablet 14:23: or milk Freddy [Xanax] 00 (Same as: Xanax) Alprazolam No Notes: Memor ia 1 MG Oral 8-27 With food l Tablet 14:23: or milk Frdedy [Xanax] 00 (Same as: Xanax) pneumococca No [...] l capsular polysacchar pneumococca No Notes: Bc jea l capsular 8-27 (Same as: l polysacchar [...] polysacchar 14:00: Pneumovax H ermann el type ) vaccine / Refrigerat pneumococca e l capsular polysacchar el type 10A vaccine / pneumococca l capsular polysacchar el type 11A vaccine / pneumococca l capsular polysacchar el type 12F vaccine / pneumococca l capsular polysacchar Potassium Yes 20 mEq = 1 Me moria Chloride 20 - tab, PO, l MEQ 13:07: Daily, Lori Hayes Extended 00 90 tab, 1 Release Refill(s) Tablet [Klor-Con] Alprazolam Yes 1 mg = 1 Mem oria 1 MG Oral -27 tab, PO, l Tablet 13:07: Q8H, PRN [...] tab, PO, l Coated 13:07: Daily, # [place] Tablet 00 90 tab, 3 Refill(s) Nitroglycer [...] tab, PO, l Tablet 13:07: Daily, # [place] 00 30 tab, 0 Refill(s) Potassium Yes [...] = 1 M emoria n 80 MG -27 tab, PO, l Oral Tablet 13:07: Bedtime, [...] mg = 1 Memoria in 0.4 MG -27 tab, SL, l Sublingual 13:07: Q5Min, PRN [...] tab, PO, l Tablet 13:07: Daily, # [place] 00 30 tab, 0 Refill(s) Ondansetron No 4 mg = 1 Me moria 4 MG 8-27 tab, PO, l Disintegrat 13:07: Q12H, PRN H ermann ing Tablet 00 Nausea, 0 [Zofran] Refill(s) Aspirin 81 Yes 81 mg = 1 Me moria MG Enteric 8-27 tab, PO, l Coated 13:07: Daily, # [place] Tablet 00 90 tab, 3 Refill(s) Nitroglycer [...] Yes 1 tab, PO, Me moria hydrochlori - BID, # 60 l de 500 MG [...] ia 02-16 Route: l 12:01: IVPB, Drug [place] form: PDR/INJ, ONCE, Dosing Weight 129.545, kg, [...] CDT Zofran 2016-0 No 4 mg, Memoria 8 Route: l 10:32: IVP, Drug form: INJ, ONCE, Dosing Weight 129.545, kg, Priority: STAT, Start date: 02/17/16 5:32:00 CDT, Stop date: 02/17/16 5:32:00 CDT Dilaudid 2015-0 No 0.5 mg, Memori a 02-16 Route: l 10:32: IVP, ONCE, Dosing Weight 129.545, kg, Priority: STAT, Start date: 02/17/16 5:32:00 CDT, Stop date: 02/17/16 5:32:00 CDT Zofran 2015-0 No 4 mg, Memoria 8 Route: l 10:32: IVP, Drug form: INJ, [...] 0.9% 8-27 (Same as: l 10:19: BD [place] Posiflush) pantoprazol 2016-0 Yes 40mg QD Take [address] [facility] 6[facility] tablet ([facility] ([facility] 00:00: mg total) Me dical 40 MG 00 by mouth [facility] tablet daily. pantoprazol 2016-0 Yes 40mg QD Take [address] [facility] 6[facility] tablet ([facility] (PROTON[facility]) 00:00: mg total) Me dical 40 MG 00 by mouth [facility] tablet daily. pantoprazol 2016-0 Yes 40mg QD Take [address] [facility] 6-[facility] tablet ([facility] (PROTONIX) 00:00: mg total) Me dical 40 MG 00 by mouth Center tablet daily. pantoprazol 2016-0 Yes 40mg QD Take [address] [facility] 6-[facility] tablet (40 [facility] (PROTONIX) 00:00: mg total) Me dical 40 MG 00 by mouth Center tablet daily. Immunizations Ordered Filled Immunization Date Status Comments Sour e Immunization Name Name Td 2017-06-26 Completed [facility] 00:00:00 [facility] Td 2017-06-26 Completed [facility] 00:00:00 [facility] Td 2017-06-26 Completed [facility] 00:00:00 [facility] Td 2017-06-26 Completed [facility] 00:00:00 [facility] Td 2017-06-26 Completed [facility] 00:00:00 [facility] Td 2017-06-26 Completed [facility] 00:00:00 [facility] Td 2017-06-26 Completed [facility] 00:00:00 [facility] Td 2017-06-26 Completed [facility] 00:00:00 [facility] Td 2017-06-26 Completed [facility] 00:00:00 [facility] Td 2017-06-26 Completed [facility] 00:00:00 [facility] Td 2017-06-26 Completed [facility] 00:00:00 [facility] Td 2017-06-26 Completed [facility] 00:00:00 [facility] Td 2017-06-26 Completed [facility] 00:00:00 [facility] Td 2017-06-26 Completed [facility] 00:00:00 [facility] Td 2017-06-26 Completed [facility] 00:00:00 [facility] Td 2017-06-26 Completed [facility] 00:00:00 [facility] Td 2017-06-26 Completed [facility] 00:00:00 [facility] Td 2017-06-26 Completed [facility] 00:00:00 [facility] Td 2017-06-26 Completed [facility] 00:00:00 [facility] Td 2017-06-26 Completed [facility] 00:00:00 [facility] Td 2017-06-26 Completed [facility] 00:00:00 [facility] Td 2017-06-26 Completed [facility] 00:00:00 [facility] Td 2017-06-26 Completed [facility] 00:00:00 [facility] Td 2017-06-26 Completed [facility] 00:00:00 [facility] Td 2017-06-26 Completed [facility] 00[facility]00:00 [facility] Td 2017-06-26 Completed [facility] 00:00:00 [facility] Td 2017-06-26 Completed [facility] 00:00:00 [facility] Td 2017-06-26 Completed [facility] 00:00:00 [facility] TD, NOS 2017-06-26 Completed [facility] 00:00:00 [facility] TD, NOS 2017-06-26 Completed [facility] 00:00:00 [facility] TD, NOS 2017-06-26 Completed [facility] 00:00:00 [facility] TD, NOS 2017-06-26 Completed [facility] 00:00:00 [facility] TD, NOS 2017-06-26 Completed [facility] 00:00:00 [facility] TD, NOS 2017-06-26 Completed [facility] 00:00:00 [facility] TD, NOS 2017-06-26 Completed [facility] 00:00:00 [facility] TD, NOS 2017-06-26 Completed [facility] 00:00:00 [facility] TD, NOS 2017-06-26 Completed [facility] 00:00:00 [facility] TD, NOS 2017-06-26 Completed [facility] 00:00:00 [facility] TD, NOS 2017-06-26 Completed [facility] 00:00:00 [facility] TD, NOS 2017-06-26 Completed [facility] 00:00:00 [facility] TD, NOS 2017-06-26 Completed [facility] 00:00:00 [facility] TD, NOS 2017-06-26 Completed [facility] 00:00:00 [facility] TD, NOS 2017-06-26 Completed [facility] 00:00:00 [facility] TD, NOS 2017-06-26 Completed [facility] 00:00:00 [facility] TD, NOS 2017-06-26 Completed [facility] 00:00:00 [facility] TD, NOS 2017-06-26 Completed [facility] 00:00:00 [facility] TD, NOS 2017-06-26 Completed [facility] 00:00:00 [facility] TD, NOS 2017-06-26 Completed [facility] 00:00:00 [facility] TD, NOS 2017-06-26 Completed [facility] 00:00:00 [facility] TD, NOS 2017-06-26 Completed [facility] 00:00:00 [facility] TD, NOS 2017-06-26 Completed [facility] 00:00:00 [facility] TD, NOS 2017-06-26 Completed [facility] 00:00:00 [facility] TD, NOS 2017-06-26 Completed [facility] 00:00:00 [facility] TD, NOS 2017-06-26 Completed [facility] 00:00:00 [facility] TD, NOS 2017-06-26 Completed [facility] 00:00:00 [facility] TD, NOS 2017-06-26 Completed [facility] 00:00:00 [facility] TD, NOS 2017-06-26 Completed [facility] 00:00:00 [facility] TD, NOS 2017-06-26 Completed [facility] 00:00:00 [facility] TD, NOS 2017-06-26 Completed [facility] 00:00:00 [facility] TD, NOS 2017-06-26 Completed [facility] 00:00:00 [facility] TD, NOS 2017-06-26 Completed [facility] 00:00:00 [facility] TD, NOS 2017-06-26 Completed [facility] 00:00:00 [facility] TD, NOS 2017-06-26 Completed [facility] 00:00:00 [facility] TD, NOS 2017-06-26 Completed [facility] 00:00:00 [facility] TD, NOS 2017-06-26 Completed [facility] 00:00:00 [facility] TD, NOS 2017-06-26 Completed [facility] 00:00:00 [facility] TD, NOS 2017-06-26 Completed [facility] 00:00:00 [facility] TD, NOS 2017-06-26 Completed [facility] 00:00:00 [facility] TD, NOS 2017-06-26 Completed [facility] 00:00:00 [facility] TD, NOS 2017-06-26 Completed [facility] 00:00:00 [facility] TD, NOS 2017-06-26 Completed [facility] 00:00:00 [facility] TD, NOS 2017-06-26 Completed [facility] 00:00:00 [facility] TD, NOS 2017-06-26 Completed [facility] 00:00:00 [facility] TD, NOS 2017-06-26 Completed [facility] 00:00:00 [facility] TD, NOS 2017-06-26 Completed [facility] 00:00:00 [facility] TD, NOS 2017-06-26 Completed [facility] 00:00:00 [facility] TD, NOS 2017-06-26 Completed [facility] 00:00:00 [facility] TD, NOS 2017-06-26 Completed [facility] 00:00:00 [facility] TD, NOS 2017-06-26 Completed [facility] 00:00:00 [facility] TD, NOS 2017-06-26 Completed [facility] 00:00:00 [facility] TD, NOS 2017-06-26 Completed [facility] 00:00:00 [facility] TD, NOS 2017-06-26 Completed [facility] 00:00:00 [facility] TD, NOS 2017-06-26 Completed [facility] 00:00:00 [facility] TD, NOS 2017-06-26 Completed [facility] 00:00:00 [facility] TD, NOS 2017-06-26 Completed [facility] 00:00:00 [facility] TD, NOS 2017-06-26 Completed [facility] 00:00:00 [facility] TD, NOS 2017-06-26 Completed [facility] 00:00:00 [facility] TD, NOS 2017-06-26 Completed [facility] 00:00:00 [facility] TD, NOS 2017-06-26 Completed [facility] 00:00:00 [facility] TD, NOS 2017-06-26 Completed [facility] 00:00:00 [facility] TD, NOS 2017-06-26 Completed [facility] 00:00:00 [facility] TD, NOS 2017-06-26 Completed [facility] 00:00:00 [facility] TD, NOS 2017-06-26 Completed [facility] 00:00:00 [facility] TD, NOS 2017-06-26 Completed [facility] 00:00:00 [facility] TD, NOS 2017-06-26 Completed [facility] 00:00:00 [facility] TD, NOS 2017-06-26 Completed [facility] 00:00:00 [facility] TD, NOS 2017-06-26 Completed [facility] 00:00:00 [facility] TD, NOS 2017-06-26 Completed [facility] 00:00:00 [facility] TD, NOS 2017-06-26 Completed [facility] 00:00:00 [facility] TD, NOS 2017-06-26 Completed [facility] 00:00:00 [facility] TD, NOS 2017-06-26 Completed [facility] 00:00:00 [facility] TD, NOS 2017-06-26 Completed [facility] 00:00:00 [facility] TD, NOS 2017-06-26 Completed [facility] 00:00:00 [facility] Td 2015-03-19 Completed [facility] 00:00:00 [facility] Td 2015-03-19 Completed [facility] 00:00:00 [facility] Td 2015-03-19 Completed [facility] 00:00:00 [facility] Td 2015-03-19 Completed [facility] 00:00:00 [facility] Td 2015-03-19 Completed [facility] 00:00:00 [facility] Td 2015-03-19 Completed [facility] 00:00:00 [facility] Td 2015-03-19 Completed [facility] 00:00:00 [facility] Td 2015-03-19 Completed [facility] 00:00:00 [facility] Td 2015-03-19 Completed [facility] 00:00:00 [facility] Td 2015-03-19 Completed [facility] 00:00:00 [facility] Td 2015-03-19 Completed [facility] 00:00:00 [facility] Td 2015-03-19 Completed [facility] 00:00:00 [facility] Td 2015-03-19 Completed [facility] 00:00:00 [facility] Td 2015-03-19 Completed [facility] 00:00:00 [facility] Td 2015-03-19 Completed [facility] 00:00:00 [facility] Td 2015-03-19 Completed [facility] 00:00:00 [facility] Td 2015-03-19 Completed [facility] 00:00:00 [facility] Td 2015-03-19 Completed [facility] 00:00:00 [facility] Td 2015-03-19 Completed [facility] 00:00:00 [facility] Td 2015-03-19 Completed [facility] 00:00:00 [facility] Td 2015-03-19 Completed [facility] 00:00:00 [facility] Td 2015-03-19 Completed [facility] 00:00:00 [facility] Td 2015-03-19 Completed [facility] 00:00:00 [facility] Td 2015-03-19 Completed [facility] 00:00:00 [facility] Td 2015-03-19 Completed [facility] 00:00:00 [facility] Td 2015-03-19 Completed [facility] 00:00:00 [facility] Td 2015-03-19 Completed [facility] 00:00:00 [facility] Td 2015-03-19 Completed [facility] 00:00:00 [facility] TD, NOS 2015-03-19 Completed [facility] 00:00:00 [facility] TD, NOS 2015-03-19 Completed [facility] 00:00:00 [facility] TD, NOS 2015-03-19 Completed [facility] 00:00:00 [facility] TD, NOS 2015-03-19 Completed [facility] 00:00:00 [facility] TD, NOS 2015-03-19 Completed [facility] 00:00:00 [facility] TD, NOS 2015-03-19 Completed [facility] 00:00:00 [facility] TD, NOS 2015-03-19 Completed [facility] 00:00:00 [facility] TD, NOS 2015-03-19 Completed [facility] 00:00:00 [facility] TD, NOS 2015-03-19 Completed [facility] 00:00:00 [facility] TD, NOS 2015-03-19 Completed [facility] 00:00:00 [facility] TD, NOS 2015-03-19 Completed [facility] 00:00:00 [facility] TD, NOS 2015-03-19 Completed [facility] 00:00:00 [facility] TD, NOS 2015-03-19 Completed [facility] 00:00:00 [facility] TD, NOS 2015-03-19 Completed [facility] 00:00:00 [facility] TD, NOS 2015-03-19 Completed [facility] 00:00:00 [facility] TD, NOS 2015-03-19 Completed [facility] 00:00:00 [facility] TD, NOS 2015-03-19 Completed [facility] 00:00:00 [facility] TD, NOS 2015-03-19 Completed [facility] 00:00:00 [facility] TD, NOS 2015-03-19 Completed [facility] 00:00:00 [facility] TD, NOS 2015-03-19 Completed [facility] 00:00:00 [facility] TD, NOS 2015-03-19 Completed [facility] 00:00:00 [facility] TD, NOS 2015-03-19 Completed [facility] 00:00:00 [facility] TD, NOS 2015-03-19 Completed [facility] 00:00:00 [facility] TD, NOS 2015-03-19 Completed [facility] 00:00:00 [facility] TD, NOS 2015-03-19 Completed [facility] 00:00:00 [facility] TD, NOS 2015-03-19 Completed [facility] 00:00:00 [facility] TD, NOS 2015-03-19 Completed [facility] 00:00:00 [facility] TD, NOS 2015-03-19 Completed [facility] 00:00:00 [facility] TD, NOS 2015-03-19 Completed [facility] 00:00:00 [facility] TD, NOS 2015-03-19 Completed [facility] 00:00:00 [facility] TD, NOS 2015-03-19 Completed [facility] 00:00:00 [facility] TD, NOS 2015-03-19 Completed [facility] 00:00:00 [facility] TD, NOS 2015-03-19 Completed [facility] 00:00:00 [facility] TD, NOS 2015-03-19 Completed [facility] 00:00:00 [facility] TD, NOS 2015-03-19 Completed [facility] 00:00:00 [facility] TD, NOS 2015-03-19 Completed [facility] 00:00:00 [facility] TD, NOS 2015-03-19 Completed [facility] 00:00:00 [facility] TD, NOS 2015-03-19 Completed [facility] 00:00:00 [facility] TD, NOS 2015-03-19 Completed [facility] 00:00:00 [facility] TD, NOS 2015-03-19 Completed [facility] 00:00:00 [facility] TD, NOS 2015-03-19 Completed [facility] 00:00:00 [facility] TD, NOS 2015-03-19 Completed [facility] 00:00:00 [facility] TD, NOS 2015-03-19 Completed [facility] 00:00:00 [facility] TD, NOS 2015-03-19 Completed [facility] 00:00:00 [facility] TD, NOS 2015-03-19 Completed [facility] 00:00:00 [facility] TD, NOS 2015-03-19 Completed [facility] 00:00:00 [facility] TD, NOS 2015-03-19 Completed [facility] 00:00:00 [facility] TD, NOS 2015-03-19 Completed [facility] 00:00:00 [facility] TD, NOS 2015-03-19 Completed [facility] 00:00:00 [facility] TD, NOS 2015-03-19 Completed [facility] 00:00:00 [facility] TD, NOS 2015-03-19 Completed [facility] 00:00:00 [facility] TD, NOS 2015-03-19 Completed [facility] 00:00:00 [facility] TD, NOS 2015-03-19 Completed [facility] 00:00:00 [facility] TD, NOS 2015-03-19 Completed [facility] 00:00:00 [facility] TD, NOS 2015-03-19 Completed [facility] 00:00:00 [facility] TD, NOS 2015-03-19 Completed [facility] 00:00:00 [facility] TD, NOS 2015-03-19 Completed [facility] 00:00:00 [facility] TD, NOS 2015-03-19 Completed [facility] 00:00:00 [facility] TD, NOS 2015-03-19 Completed [facility] 00:00:00 [facility] TD, NOS 2015-03-19 Completed [facility] 00:00:00 [facility] TD, NOS 2015-03-19 Completed [facility] 00:00:00 [facility] TD, NOS 2015-03-19 Completed [facility] 00:00:00 [facility] TD, NOS 2015-03-19 Completed [facility] 00:00:00 [facility] TD, NOS 2015-03-19 Completed [facility] 00:00:00 [facility] TD, NOS 2015-03-19 Completed [facility] 00:00:00 [facility] TD, NOS 2015-03-19 Completed [facility] 00:00:00 [facility] TD, NOS 2015-03-19 Completed [facility] 00:00:00 [facility] TD, NOS 2015-03-19 Completed [facility] 00:00:00 [facility] TD, NOS 2015-03-19 Completed [facility] 00:00:00 [facility] TD, NOS 2015-03-19 Completed [facility] 00:00:00 [facility] TD, NOS 2015-03-19 Completed [facility] 00:00:00 [facility] TD, NOS 2015-03-19 Completed [facility] 00:00:00 [facility] TD, NOS 2015-03-19 Completed [facility] 00:00:00 [facility] TD, NOS 2015-03-19 Completed [facility] 00:00:00 [facility] TD, NOS 2015-03-19 Completed [facility] 00:00:00 [facility] Vital Signs Vital Name Observation Time Observation Value Comments Source Systolic blood 2022-11-14 00:00:00 133 mm[Hg] Univer sity of pressure [facility] Diastolic blood 2022-11-14 00:00:00 70 mm[Hg] Unive rsity of pressure [facility] Heart rate 2022-11-14 00:00:00 62 /min [facility] Respiratory rate 2022-11-14 00:00:00 24 /min [facility] ers[facility] Oxygen saturation in 2022-11-14 00:00:00 96 /min [facility] of Arterial blood by [place] [employer] [facility] oxim[facility] Body temperature 2022-11-13 21:00:00 37 Felipa [facility] Body weight 2022-11-13 21:00:00 127.914 kg [facility] BMI 2022-11-13 21:00:00 40.46 kg/m2 [facility] Systolic blood 2022-10-31 17:30:00 118 mm[Hg] Univer sity of pressure [facility] Diastolic blood 2022-10-31 17:30:00 75 mm[Hg] Unive rsity of pressure [facility] Heart rate 2022-10-31 17:30:00 72 /min [facility] Respiratory rate 2022-10-31 17:30:00 9 /min [facility] Oxygen saturation in 2022-10-31 17:30:00 96 /min [facility] Arterial blood by [place] [employer] [facility] Body temperature 2022-10-31 14:15:00 36.5 Felipa [facility] Body height 2022-10-31 14:15:00 177.8 cm [facility] Body weight 2022-10-31 14:15:00 128.822 kg [facility] BMI 2022-10-31 14:15:00 40.75 kg/m2 [facility] Systolic blood 2022-10-27 16:28:00 113 mm[Hg] Univer sity of pressure [facility] Diastolic blood 2022-10-27 16:28:00 54 mm[Hg] Unive rsity of pressure [facility] Heart rate 2022-10-27 16:28:00 66 /min [facility] Body temperature 2022-10-27 16:28:00 35.56 Felipa [facility] Respiratory rate 2022-10-27 16:28:00 18 /min [facility] Oxygen saturation in 2022-10-27 16:28:00 98 /min [facility] Arterial blood by [place] [employer] [facility] Body weight 2022-10-27 08:12:00 128.958 kg [facility] BMI 2022-10-27 08:12:00 40.79 kg/m2 [facility] Body height 2022-10-26 23:22:00 177.8 cm [facility] Systolic blood 2022-10-15 17:47:00 136 mm[Hg] Univer sity of pressure [facility] Diastolic blood 2022-10-15 17:47:00 81 mm[Hg] Unive rsity of pressure [facility] Heart rate 2022-10-15 17:47:00 84 /min [facility] Body temperature 2022-10-15 17:47:00 36.11 [facility]ip[facility] Body height 2022-10-15 17:47:00 170.2 cm [facility] Body weight 2022-10-15 17:47:00 129.184 kg [facility] BMI 2022-10-15 17:47:00 44.61 kg/m2 [facility] Oxygen saturation in 2022-10-15 17:47:00 98 /min [facility] Arterial blood by [place] [employer] [facility] Systolic blood 2022-10-03 16:15:00 102 mm[Hg] Univer sity of pressure [facility] Diastolic blood 2022-10-03 16:15:00 64 mm[Hg] Unive rsity of pressure [facility] Heart rate 2022-10-03 16:15:00 71 /min [facility] Body temperature 2022-10-03 16:15:00 36.33 Felip[facility] Respiratory rate 2022-10-03 16:15:00 18 /min [facility] Oxygen saturation in 2022-10-03 16:15:00 96 /min [facility] Arterial blood by [employer] [facility] Pulse oxim[facility] Body height 2022-10-03 13:10:00 177.8 cm [facility] Body weight 2022-10-03 13:10:00 126.1 kg [facility] BMI 2022-10-03 13:10:00 39.89 kg/m2 [facility] Systolic blood 2022-07-30 21:04:00 137 mm[Hg] Univer sity of pressure [facility] Diastolic blood 2022-07-30 21:04:00 80 mm[Hg] Unive rsity of pressure [facility] Heart rate 2022-07-30 21:04:00 88 /min [facility] Body height 2022-07-30 21:04:00 177.8 cm [facility] Body weight 2022-07-30 21:04:00 128.822 kg [facility] BMI 2022-07-30 21:04:00 40.75 kg/m2 [facility] Oxygen saturation in 2022-07-30 21:04:00 96 /min [facility] Arterial blood by [facility] Pulse oximetry Branch Systolic blood 2022-07-09 16:44:00 110 mm[Hg] Univer sity of pressure [facility] Diastolic blood 2022-07-09 16:44:00 66 mm[Hg] Unive rsity of pressure [facility] Heart rate 2022-07-09 16:44:00 70 /min [facility] Body temperature 2022-07-09 16:44:00 36.17 [facility]ip[facility] Respiratory rate 2022-07-09 16:44:00 19 /min [facility] Oxygen saturation in 2022-07-09 16:44:00 89 /min [facility] Arterial blood by [facility] Pulse oximetry Branch Body weight 2022-07-09 09:36:00 126.962 kg [facility] BMI 2022-07-09 09:36:00 40.16 kg/m2 [facility] Body height 2022-07-09 01:39:00 177.8 cm [facility] Systolic blood 2022-06-25 22:07:00 134 mm[Hg] Univer sity of pressure [facility] Diastolic blood 2022-06-25 22:07:00 72 mm[Hg] Unive rsity of pressure [facility] Heart rate 2022-06-25 22:07:00 79 /min [facility] Body temperature 2022-06-25 22:07:00 36.56 Felipa [facility] Body height 2022-06-25 22:07:00 177.8 cm [facility] Body weight 2022-06-25 22:07:00 130.046 kg [facility] BMI 2022-06-25 22:07:00 41.14 kg/m2 [facility] Oxygen saturation in 2022-06-25 22:07:00 97 /min [facility] Systolic blood 2022-06-20 20:50:00 126 mm[Hg] [facility] Diastolic blood 2022-06-20 20:50:00 76 mm[Hg] [facility] Heart rate 2022-06-20 20:50:00 75 /min [facility] Body temperature 2022-06-20 20:50:00 36.5 Felipa [facility] Respiratory rate 2022-06-20 20:50:00 18 /min [facility] Body height 2022-06-20 20:50:00 177.8 cm [facility] Body weight 2022-06-20 20:50:00 130.953 kg [facility] BMI 2022-06-20 20:50:00 41.42 kg/m2 [facility] Oxygen saturation in 2022-06-20 20:50:00 97 /min [facility] Respiratory rate 2022-06-18 13:37:00 18 /min [facility] Oxygen saturation in 2022-06-18 13:37:00 93 /min [facility] Systolic blood 2022-06-18 09:00:00 112 mm[Hg] [facility] Diastolic blood 2022-06-18 09:00:00 59 mm[Hg] [facility] Heart rate 2022-06-18 09:00:00 65 /min [facility] Body temperature 2022-06-18 09:00:00 36.22 Feilpa [facility] Body height 2022-06-18 03:08:00 177.8 cm [facility] Body weight 2022-06-18 03:08:00 126.617 kg [facility] BMI 2022-06-18 03:08:00 40.05 kg/m2 [facility] Body weight 2022-05-02 20:17:00 127.914 kg [facility] BMI 2022-05-02 20:17:00 40.46 kg/m2 [facility] Systolic blood 2022-04-11 17:47:00 127 mm[Hg] [facility] Diastolic blood 2022-04-11 17:47:00 74 mm[Hg] [facility] Heart rate 2022-04-11 17:47:00 68 /min [facility] Body temperature 2022-04-11 17:47:00 36.89 Felipa [facility] Respiratory rate 2022-04-11 17:47:00 18 /min [facility] Body height 2022-04-11 17:47:00 177.8 cm [facility] Body weight 2022-04-11 17:47:00 129.457 kg [facility] BMI 2022-04-11 17:47:00 40.95 kg/m2 [facility] Oxygen saturation in 2022-04-11 17:47:00 95 /min [facility] Arterial blood by [facility] Pulse oximetry Branch Systolic blood 2022-03-14 19:42:00 131 mm[Hg] [facility] Diastolic blood 2022-03-14 19:42:00 88 mm[Hg] [facility] Heart rate 2022-03-14 19:42:00 88 /min [facility] Body temperature 2022-03-14 19:42:00 36.89 Felipa [facility] Respiratory rate 2022-03-14 19:42:00 18 /min [facility] Body height 2022-03-14 19:42:00 177.8 cm [facility] Body weight 2022-03-14 19:42:00 126.009 kg [facility] BMI 2022-03-14 19:42:00 39.86 kg/m2 [facility] Oxygen saturation in 2022-03-14 19:42:00 94 /min [facility] blood by [facility] marium Pulse oximetry Branch Systolic blood 2022-11-14 00:00:00 133 mm[Hg] [facility] Diastolic blood 2022-11-14 00:00:00 70 mm[Hg] [facility] Heart rate 2022-11-14 00:00:00 62 /min [facility] Respiratory rate 2022-11-14 00:00:00 24 /min [facility] Oxygen saturation in 2022-11-14 00:00:00 96 /min [facility] by [facility] Pulse oxim[facility] Branch Body temperature 2022-11-13 21:00:00 37 Felipa [facility] Body weight 2022-11-13 21:00:00 127.914 kg [facility] BMI 2022-11-13 21:00:00 40.46 kg/m2 [facility] Systolic blood 2022-11-07 18:22:00 131 mm[Hg] [facility] Diastolic blood 2022-11-07 18:22:00 81 mm[Hg] [facility] Heart rate 2022-11-07 18:22:00 84 /min [facility] Respiratory rate 2022-11-07 18:22:00 20 /min [facility] Body height 2022-11-07 18:22:00 177.8 cm [facility] Body weight 2022-11-07 18:22:00 128.005 kg [facility] BMI 2022-11-07 18:22:00 40.49 kg/m2 [facility] Oxygen saturation in 2022-10-31 17:30:00 96 /min [facility] by [facility] Pulse oximetry Branch Body temperature 2022-10-31 14:15:00 36.5 Felipa [facility] Systolic blood 2022-10-15 17:47:00 136 mm[Hg] [facility] Diastolic blood 2022-10-15 17:47:00 81 mm[Hg] [facility] Heart rate 2022-10-15 17:47:00 84 /min [facility] Body temperature 2022-10-15 17:47:00 36.11 Felipa [facility] Body height 2022-10-15 17:47:00 170.2 cm [facility] Body weight 2022-10-15 17:47:00 129.184 kg [facility] BMI 2022-10-15 17:47:00 44.61 kg/m2 [facility] Oxygen saturation in 2022-10-15 17:47:00 98 /min [facility] Arterial blood by [email or web address] Pulse oximetry Branch Respiratory rate 2022-10-03 16:15:00 18 /min [facility] Systolic blood 2022-09-12 18:03:00 117 mm[Hg] [facility] Diastolic blood 2022-09-12 18:03:00 73 mm[Hg] [facility] Heart rate 2022-09-12 18:03:00 94 /min [facility] Body temperature 2022-09-12 18:03:00 36.33 Felipa [facility] Respiratory rate 2022-09-12 18:03:00 16 /min [facility] Body height 2022-09-12 18:03:00 177.8 cm [facility] Body weight 2022-09-12 18:03:00 130.001 kg [facility] BMI 2022-09-12 18:03:00 41.12 kg/m2 [facility] Oxygen saturation in 2022-09-12 18:03:00 96 /min [facility]terial blood by [email or web address] Pulse oximetry Branch Systolic blood 2022-08-29 19:16:00 129 mm[Hg] [facility] Diastolic blood 2022-08-29 19:16:00 79 mm[Hg] [facility] Heart rate 2022-08-29 19:16:00 94 /min [facility] Respiratory rate 2022-08-29 19:16:00 20 /min [facility] Body height 2022-08-29 19:16:00 177.8 cm [facility] Body weight 2022-08-29 19:16:00 127.279 kg [facility] BMI 2022-08-29 19:16:00 40.26 kg/m2 [facility] Systolic blood 2022-08-01 19:26:00 123 mm[Hg] [facility] Diastolic blood 2022-08-01 19:26:00 77 mm[Hg] [facility] Heart rate 2022-08-01 19:26:00 89 /min [facility] Respiratory rate 2022-08-01 19:26:00 18 /min [facility] Body height 2022-08-01 19:26:00 177.8 cm [facility] Body weight 2022-08-01 19:26:00 127.007 kg [facility] BMI 2022-08-01 19:26:00 40.18 kg/m2 [facility] Oxygen saturation in 2022-07-30 21:04:00 96 /min [facility] by [facility] Pulse oximetry Branch Systolic blood 2022-07-09 16:44:00 110 mm[Hg] [facility] Diastolic blood 2022-07-09 16:44:00 66 mm[Hg] [facility] Heart rate 2022-07-09 16:44:00 70 /min [facility] Body temperature 2022-07-09 16:44:00 36.17 Felipa [facility] Respiratory rate 2022-07-09 16:44:00 19 /min [facility] Oxygen saturation in 2022-07-09 16:44:00 89 /min [facility] by [facility] Pulse oxim[facility] Branch Body weight 2022-07-09 09:36:00 126.962 kg [facility] BMI 2022-07-09 09:36:00 40.16 kg/m2 [facility] Body height 2022-07-09 01:39:00 177.8 cm [facility] Systolic blood 2022-06-25 22:07:00 134 mm[Hg] [facility] Diastolic blood 2022-06-25 22:07:00 72 mm[Hg] [facility] Heart rate 2022-06-25 22:07:00 79 /min [facility] Body temperature 2022-06-25 22:07:00 36.56 Felipa [facility] Body height 2022-06-25 22:07:00 177.8 cm [facility] Body weight 2022-06-25 22:07:00 130.046 kg [facility] BMI 2022-06-25 22:07:00 41.14 kg/m2 [facility] Oxygen saturation in 2022-06-25 22:07:00 97 /min [facility] Arterial blood by [employer] [facility] Pulse oximetry Branch Systolic blood 2022-06-20 20:50:00 126 mm[Hg] [facility] Diastolic blood 2022-06-20 20:50:00 76 mm[Hg] [facility] Heart rate 2022-06-20 20:50:00 75 /min [facility] Body temperature 2022-06-20 20:50:00 36.5 Felipa [facility] Respiratory rate 2022-06-20 20:50:00 18 /min [facility] Body height 2022-06-20 20:50:00 177.8 cm [facility] Body weight 2022-06-20 20:50:00 130.953 kg [facility] BMI 2022-06-20 20:50:00 41.42 kg/m2 [facility] Oxygen saturation in 2022-06-20 20:50:00 97 /min [facility]ial blood by [employer] [facility] Pulse oximetry Branch Systolic blood 2022-06-13 19:44:00 112 mm[Hg] [facility] Diastolic blood 2022-06-13 19:44:00 71 mm[Hg] [facility] Heart rate 2022-06-13 19:44:00 73 /min [facility] Respiratory rate 2022-06-13 19:44:00 20 /min [facility] Body height 2022-06-13 19:44:00 177.8 cm [facility] Body weight 2022-06-13 19:44:00 126.826 kg [facility] BMI 2022-06-13 19:44:00 40.12 kg/m2 [facility] Body weight 2022-05-02 20:17:00 127.914 kg [facility] BMI 2022-05-02 20:17:00 40.46 kg/m2 [facility] Systolic blood 2022-04-11 19:47:00 119 mm[Hg] [facility] Diastolic blood 2022-04-11 19:47:00 70 mm[Hg] [facility] Heart rate 2022-04-11 19:47:00 68 /min [facility] Respiratory rate 2022-04-11 19:47:00 20 /min [facility] Body height 2022-04-11 19:47:00 177.8 cm [facility] Body weight 2022-04-11 19:47:00 127.914 kg [facility] BMI 2022-04-11 19:47:00 40.46 kg/m2 [facility] Body temperature 2022-04-11 17:47:00 36.89 Felipa [facility] Oxygen saturation in 2022-04-11 17:47:00 95 /min [facility] Arterial blood by [facility] Pulse oximetry Branch Systolic blood 2022-03-14 19:42:00 131 mm[Hg] [facility] Diastolic blood 2022-03-14 19:42:00 88 mm[Hg] [facility] Heart rate 2022-03-14 19:42:00 88 /min [facility] Body temperature 2022-03-14 19:42:00 36.89 Felipa [facility] Respiratory rate 2022-03-14 19:42:00 18 /min [facility] Body height 2022-03-14 19:42:00 177.8 cm [facility] Body weight 2022-03-14 19:42:00 126.009 kg [facility] BMI 2022-03-14 19:42:00 39.86 kg/m2 [facility] Oxygen saturation in 2022-03-14 19:42:00 94 /min [facility] by [facility] Pulse oximetry Branch Systolic blood 2022-03-07 19:03:00 130 mm[Hg] [facility] Diastolic blood 2022-03-07 19:03:00 71 mm[Hg] [facility] Heart rate 2022-03-07 19:03:00 65 /min [facility] Respiratory rate 2022-03-07 19:03:00 18 /min [facility] Body height 2022-03-07 19:03:00 177.8 cm [facility] Body weight 2022-03-07 19:03:00 126.463 kg [facility] BMI 2022-03-07 19:03:00 40.00 kg/m2 [facility] Oxygen saturation in 2022-01-23 14:51:00 98 /min [facility] blood by [facility] Pulse oximetry Branch Body temperature 2022-01-08 20:21:00 37.06 Felipa [facility] Respitory Rate 2016-05-17 23:59:00 [facility] [place] Temperature Oral (F) 2016-05-17 23:59:00 98.1 F [facility] Heart Rate 2016-05-17 23:59:00 [facility] Systolic (mm Hg) 2016-05-17 23:59:00 Bc rani [place] Diastolic (mm Hg) 2016-05-17 23:59:00 [facility] Weight 2016-05-17 21:43:00 [facility] Temperature Oral (F) 2016-05-17 21:43:00 97.6 F [facility] Respitory Rate 2016-05-17 21:43:00 [facility] Heart Rate 2016-05-17 21:43:00 [facility] Systolic (mm Hg) 2016-05-17 21:43:00 [facility] Diastolic (mm Hg) 2016-05-17 21:43:00 [facility] Respitory Rate 2016-05-06 21:58:00 [facility] Systolic (mm Hg) 2016-05-06 21:58:00 [facility] [place] Diastolic (mm Hg) 2016-05-06 21:58:00 [facility] [place] Heart Rate 2016-05-06 21:58:00 [facility] Temperature Oral (F) 2016-05-06 21:58:00 97.9 F [facility] Respitory Rate 2016-05-06 19:19:00 [facility] [place] Temperature Oral (F) 2016-05-06 17:24:00 97.4 F [facility] Systolic (mm Hg) 2016-05-06 17:24:00 [facility] [place] Diastolic (mm Hg) 2016-05-06 17:24:00 [facility] [place] Respitory Rate 2016-05-06 17:24:00 [facility] Heart Rate 2016-05-06 17:24:00 [facility] Systolic (mm Hg) 2016-05-06 16:20:00 [facility] [place] Diastolic (mm Hg) 2016-05-06 16:20:00 [facility] [place] Heart Rate 2016-05-06 16:20:00 [facility] Temperature Oral (F) 2016-05-06 16:20:00 97.9 F [facility] Weight 2016-05-06 03:12:00 [facility] BMI Calculated 2016-05-06 03:12:00 [facility] [place] Height 2016-05-06 03:12:00 177.8 cm [facility] Weight 2016-05-05 23:05:00 [facility] Systolic (mm Hg) 2016-04-26 01:24:00 [facility] Diastolic (mm Hg) 2016-04-26 01:24:00 [facility] Respitory Rate 2016-04-26 01:24:00 [facility] [place] Heart Rate 2016-04-26 01:24:00 [facility] Temperature Oral (F) 2016-04-26 01:24:00 97.4 F [facility] Weight 2016-04-25 23:04:00 [facility] BMI Calculated 2016-04-25 23:04:00 [facility] [place] Height 2016-04-25 23:04:00 177.8 cm [facility] Respitory Rate 2016-04-25 23:04:00 [facility] [place] Temperature Oral (F) 2016-04-25 23:04:00 97.2 F [facility] Heart Rate 2016-04-25 23:04:00 [facility] Systolic (mm Hg) 2016-04-25 23:04:00 [facility] [place] Diastolic (mm Hg) 2016-04-25 23:04:00 [facility] Temperature Oral (F) 2016-03-05 14:32:00 98.7 F [facility] Respitory Rate 2016-03-05 14:32:00 [facility] Systolic (mm Hg) 2016-03-05 14:32:00 [facility] Diastolic (mm Hg) 2016-03-05 14:32:00 [facility] Respitory Rate 2016-03-05 12:48:00 [facility] Systolic (mm Hg) 2016-03-05 12:48:00 [facility] [place] Diastolic (mm Hg) 2016-03-05 12:48:00 [facility] Systolic (mm Hg) 2016-03-05 12:06:00 [facility] [place] Diastolic (mm Hg) 2016-03-05 12:06:00 [facility] [place] Height 2016-03-05 12:06:00 177.8 cm [facility] BMI Calculated 2016-03-05 12:06:00 [facility] Weight 2016-03-05 12:06:00 [facility] Heart Rate 2016-03-05 12:06:00 [facility] Temperature Oral (F) 2016-03-05 12:06:00 98.9 F [facility] Respitory Rate 2016-03-05 12:06:00 [facility] Temperature Oral (F) 2016-03-02 14:14:00 98.2 F [facility] Heart Rate 2016-03-02 14:14:00 [facility] Respitory Rate 2016-03-02 14:14:00 [facility] Systolic (mm Hg) 2016-03-02 12:39:00 [facility] [place] Diastolic (mm Hg) 2016-03-02 12:39:00 [facility] Heart Rate 2016-03-02 12:39:00 [facility] Weight 2016-03-02 10:03:00 [facility] Temperature Oral (F) 2016-03-02 10:03:00 98.0 F [facility] Respitory Rate 2016-03-02 10:03:00 [facility] [place] Systolic (mm Hg) 2016-03-02 10:03:00 [facility] [place] Diastolic (mm Hg) 2016-03-02 10:03:00 [facility] [place] Heart Rate 2016-03-02 10:03:00 [facility] Systolic (mm Hg) 2016-02-20 01:05:00 [facility] [place] Diastolic (mm Hg) 2016-02-20 01:05:00 [facility] Temperature Oral (F) 2016-02-20 01:05:00 98.0 F [facility] Respitory Rate 2016-02-20 01:05:00 [facility] [place] Heart Rate 2016-02-20 01:05:00 [facility] Heart Rate 2016-02-19 20:37:00 [facility] Respitory Rate 2016-02-19 20:37:00 [facility] [place] Temperature Oral (F) 2016-02-19 20:37:00 97.8 F [facility] Systolic (mm Hg) 2016-02-19 20:37:00 [facility] Diastolic (mm Hg) 2016-02-19 20:37:00 [facility] [place] Systolic (mm Hg) 2016-02-19 17:00:00 [facility] Diastolic (mm Hg) 2016-02-19 17:00:00 [facility] Heart Rate 2016-02-19 17:00:00 [facility] Temperature Oral (F) 2016-02-19 17:00:00 97.9 F [facility] Respitory Rate 2016-02-19 17:00:00 [facility] Height 2016-02-17 13:19:00 177.8 cm [facility] BMI Calculated 2016-02-17 13:19:00 [facility] [place] Weight 2016-02-17 13:19:00 Kentrell Hayes Weight 2016-02-17 10:16:00 [facility] BMI Calculated 2016-02-17 10:16:00 Zane Minaya Height 2016-02-17 10:16:00 177[facility]8 [facility] Procedure Date / Time Performing Clinician Source Performed COMP. METABOLIC PANEL 2022-11-13 22:48:00 Hermila Lester [facility] ([id number]) [facility] COMP. METABOLIC PANEL 2022-11-13 22:48:00 Hermila Lester [facility] ([id number]) [facility] XR CHEST 2 VW 2022-11-13 21:39:32 Ademonikaleatha [facility] XR CHEST 2 VW 2022-11-13 21[facility]39:[facility] 2022-11-13 21:24:00 Tayler [facility] CBC WITH DIFF 2022-11-13 21:24:00 Tayler [facility] D-DIMER 2022-11-13 21:24:00 Tayler [facility] N-TERMINAL PRO-BNP 2022-11-13 21:24:00 Hermila Lester [facility] COVID-19 (ID NOW RAPID 2022-11-13 21:24:[address] [facility] TESTING) Medical Branch COVID-19 (ID NOW RAPID 2022-11-13 21:24:[address] [facility] TESTING) [facility] TROPONIN I 2022-11-13 21:24:00 Adeellen [facility] N-TERMINAL PRO-BNP 2022-11-13 21:24:00 Tayler [facility] D-DIMER 2022-11-13 21:24:00 Tayler [facility] CBC WITH DIFF 2022-11-13 21:24:00 Hermila Lester [facility] HB ECG ROUTINE & RHYTHM 2022-11-13 21:09:44 Hermila Lester [facility] [place] CONSENT/REFUSAL FOR 2022-11-13 20:58:10 Doctor Unassigned, [facility] DIAGNOSIS AND TREATMENT [facility] CONSENT/REFUSAL FOR 2022-11-13 20:58:10 Doctor Unassigned, [facility] DIAGNOSIS AND TREATMENT [facility] PATIENT FINANCIAL 2022-11-07 18:11:33 Doctor Unassigned, Un [facility] POLICY [facility] ASSIGNMENT OF BENEFITS 2022-11-07 18:09:36 Doctor Unassigned, Un [facility] CONSENT/REFUSAL FOR 2022-11-07 18:09:17 Doctor Tong, [facility] DIAGNOSIS AND TREATMENT [facility] [place] TROPONIN I 2022-10-31 16:18:00 Socorro Reeves [facility] TROPONIN I 2022-10-31 16:18:00 Socorro Reeves [facility] XR CHEST 1 VW 2022-10-31 14:51:00 Socorro Reeves [facility] TROPONIN I 2022-10-31 14:34:00 Socorro Reeves [facility] COMP. METABOLIC PANEL 2022-10-31 14:34:00 Socorro Reeves [facility] ([id number]) [facility] CBC WITH DIFF 2022-10-31 14:34:00 Socorro Reeves [facility] PROTHROMBIN TIME / INR 2022-10-31 14:34:00 Socorro Reeves [facility] ACTIVATED PARTIAL THRMPLAS 2022-10-31 14:34:00 Socorro Reeves [facility] N-TERMINAL PRO-BNP 2022-10-31 14:34:00 Socorro Reeves [facility] CBC WITH DIFF 2022-10-31 14:34:00 Socorro Reeves [facility] COMP. METABOLIC PANEL 2022-10-31 14:34:00 Socorro Reeves [facility] ([id number]) Medical Branch TROPONIN I 2022-10-31 14:34:00 Socorro Reeves [facility] N-TERMINAL PRO-BNP 2022-10-31 14:34:00 Socorro Reeves [facility] PROTHROMBIN TIME / INR 2022-10-31 14:34:00 Socorro Reeves [facility] ACTIVATED PARTIAL THRMPLAS 2022-10-31 14:34:00 [facility]HYTHM 2022-10-31 14:14:26 Socorro Reeves [facility] HB ECG ROUTINE & RHYTHM 2022-10-31 14:14:26 Socorro Reeves [facility] CONSENT/REFUSAL FOR 2022-10-31 14:11:23 Doctor Unassigned, [facility] DIAGNOSIS AND TREATMENT Katie [facility] CONSENT/REFUSAL FOR 2022-10-31 14:11:23 Doctor Unassigned, [facility] DIAGNOSIS AND TREATMENT [facility] TRANSTHORACIC ECHO (TTE) 2022-10-27 16:39:00 Mindy Ferrer [facility] COMPLETE W/ CONTRAST Medical [facility] TRANSTHORACIC ECHO (TTE) 2022-10-27 16:39:00 Mindy Ferrer [facility] COMPLETE W/ CONTRAST Medical [facility] POCT GLUCOSE (AUTOMATED) 2022-10-27 16:28:00 Jose Martin Reece [facility] POCT GLUCOSE (AUTOMATED) 2022-10-27 16:28:00 Jose Martin Reece [facility] POCT GLUCOSE (AUTOMATED) 2022-10-27 13:15:00 Jose Martin Reece [facility] POCT GLUCOSE (AUTOMATED) 2022-10-27 13:15:00 Jose Martin Reece [facility] TROPONIN I 2022-10-27 08:02:00 Mindy Ferrer [facility] TROPONIN I 2022-10-27 08:02:00 Mindy Ferrer [facility] TROPONIN I 2022-10-27 01:06:00 Mindy Ferrer [facility] TROPONIN I 2022-10-27 01:06:00 Mindy Ferrer [facility] XR CHEST 1 VW 2022-10-26 20:19:29 Naty Collier [facility] XR CHEST 1 VW 2022-10-26 20:19:29 Naty Collier [facility] MAGNESIUM 2022-10-26 19:56:00 Naty Collier [facility] TROPONIN I 2022-10-26 19:56:00 Naty Collier [facility] COMP. METABOLIC PANEL 2022-10-26 19:56:00 Naty Collier [facility] ([id number]) [facility] CBC WITH DIFF 2022-10-26 19:56:00 Naty Collier [facility] PROTHROMBIN TIME / INR 2022-10-26 19:56:00 Naty Collier [facility] ACTIVATED PARTIAL THRMPLAS 2022-10-26 19:56:00 Mike Collier [facility] N-TERMINAL PRO-BNP 2022-10-26 19:56:00 Naty Collier [facility] CBC WITH DIFF 2022-10-26 19:56:00 Naty Collier [facility] ACTIVATED PARTIAL THRMPLAS 2022-10-26 19:56:00 Mike Collier [facility] PROTHROMBIN TIME / INR 2022-10-26 19:56:00 Naty Collier [facility] COMP. METABOLIC PANEL 2022-10-26 19:56:00 Naty Collier [facility] ([id number]) [facility] TROPONIN I 2022-10-26 19:56:00 Naty Collier [facility] N-TERMINAL PRO-BNP 2022-10-26 19:56:00 Naty Collier [facility] MAGNESIUM 2022-10-26 19:56:00 Naty Collier [facility] HB ECG ROUTINE & RHYTHM 2022-10-26 19:50:55 Naty Collier [facility] [place] CONSENT/REFUSAL FOR 2022-10-26 19:42:14 Doctor Tong [facility] DIAGNOSIS [facility] CONSENT/REFUSAL FOR 2022-10-26 19:42:14 Doctor Tong [facility] DIAGNOSIS AND TREATMENT [facility] HOSPITAL ADMISSION 2022-10-26 05:01:00 Doctor Tong [facility] GLYCOSYLATED HEMOGLOBIN 2022-10-25 17:17:00 Samra Gibbs [facility] (A1C) [facility] MICROALBUMIN URINE 2022-10-25 17:17:00 Samra Gibbs [facility] COVID-19 (MOLECULAR 2022-08-19 16:31:00 Staci Rollins [facility] TESTING [facility] NUCLEIC ACID AMPLIFICATION) LAB ONLY COVID 2022-08-19 16:31:00 Staci Rollins [facility] INTERPRETATION [facility] EXTERNAL LAB A1C 2022-08-17 14:00:00 Doctor Tong, [facility] EXTERNAL LAB A1C 2022-08-17 14:00:00 Doctor Tong [facility] BASIC METABOLIC PANEL (NA, 2022-07-30 21:51:00 Socorro Cabezas [facility] K, CL, CO2, GLUCOSE, BUN, Medica l Branch CREATININE, CA) N-TERMINAL PRO-BNP 2022-07-30 21:51:00 Socorro Cabezas [facility] PATIENT 2022-07-12 06:01:00 Doctor Tong, [facility] TEACHING/INSTRUCTIONS- [facility] OUTPATIENT TROPONIN I 2022-07-09 15:29:00 [facility] TROPONIN I 2022-07-09 15:29:00 [facility]UM 2022-07-09 10:10:00 [facility] 2022-07-09 10:10:00 Nava [facility] BASIC METABOLIC PANEL (NA, 2022-07-09 10:10:00 Thaddeus Interiano [facility] K, CL, CO2, GLUCOSE, BUN, Medica l Branch CREATININE, CA) CBC WITH DIFF 2022-07-09 10:10:00 [facility] CBC WITH DIFF 2022-07-09 10:10:00 Laisha [facility] BASIC METABOLIC PANEL (NA, 2022-07-09 10:10:00 Thaddeus Interiano [facility] K, CL, CO2, GLUCOSE, BUN, Medica l Branch CREATININE, CA) MAGNESIUM 2022-07-09 10:10:00 Laisha [facility] TROPONIN I 2022-07-09 10:10:00 Nava [facility] XR CHEST 1 VW 2022-07-08 23:05:47 Harry West [facility] XR CHEST 1 VW 2022-07-08 23:05:47 Harry West [facility] EKG-12 LEAD 2022-07-08 23:05:10 Harry West [facility] LIPASE 2022-07-08 22:54:00 Harry West [facility] TROPONIN I 2022-07-08 22:54:00 Harry West [facility] COMP. METABOLIC PANEL 2022-07-08 22:54:00 Harry West [facility] ([id number]) [facility] CBC WITH DIFF 2022-07-08 22:54:00 Harry West [facility] N-TERMINAL PRO-BNP 2022-07-08 22:54:00 Harry [facility] CBC WITH DIFF 2022-07-08 22:54:00 Harry West [facility] COMP. METABOLIC PANEL 2022-07-08 22:54:00 Harry West [facility] ([id number]) [facility] [place] TROPONIN I 2022-07-08 22:54:00 Harry West [facility] N-TERMINAL PRO-BNP 2022-07-08 22:54:00 Harry West [facility] LIPASE 2022-07-08 22:54:00 Harry West [facility] HB ECG ROUTINE & RHYTHM 2022-07-08 22:40:14 Harry West [facility] STRIP [facility] CONSENT/REFUSAL FOR 2022-07-08 22:25:38 Doctor Unassigned, [facility] DIAGNOSIS [facility] CONSENT/REFUSAL FOR 2022-07-08 22:25:38 Doctor Unasslorie, [facility] DIAGNOSIS AND TRE[facility] HOSPITAL ADMISSION 2022-07-08 06:01:00 Doctor Unabakari [facility] N-TERMINAL PRO-BNP 2022-06-24 16:15:00 [facility] TESTOSTERONE, FREE AND 2022-06-24 16:15:00 Samra Gibbs [facility] TOTAL [facility] FOLLICLE STIMULATING 2022-06-24 16:15:00 Samra Gibbs [facility] HORMONE [facility] COMP. METABOLIC PANEL 2022-06-24 16:15:00 Samra Gibbs [facility] ([id number]) [facility] IRON PANEL 2022-06-24 16:15:00 Samra Gibbs [facility] FERRITIN SERUM 2022-06-24 16:15:00 Samra Gibbs [facility] FOLATE 2022-06-24 16:15:00 Samra Gibbs [facility] LUTEINIZING HORMONE SERUM 2022-06-24 16:15:00 Samra Gibbs [facility] POCT GLUCOSE (AUTOMATED) 2022-06-18 17:21:00 Antionette Grissom [facility] POCT GLUCOSE (AUTOMATED) 2022-06-18 17:21:00 Antionette Grissom [facility] POCT GLUCOSE (AUTOMATED) 2022-06-18 14:15:00 Antionette Grissom [facility] POCT GLUCOSE (AUTOMATED) 2022-06-18 14:15:00 [facility] 2022-06-18 11:47:00 [facility] CREATINE KINASE 2022-06-18 11:47:00 Dean chace [facility] MAGNESIUM 2022-06-18 11:47:00 [facility] TROPONIN I 2022-06-18 11:47:00 [facility] COMP. METABOLIC PANEL 2022-06-18 11:47:00 Maya Charles [facility] ([id number]) [facility] CBC WITH DIFF 2022-06-18 11:47:00 [facility] N-TERMINAL PRO-BNP 2022-06-18 11:47:00 Dean chace [facility] CBC WITH DIFF 2022-06-18 11:47:00 Dean chace [facility] COMP. METABOLIC PANEL 2022-06-18 11:47:00 Dean chace [facility] ([id number]) [facility] N-TERMINAL PRO-BNP 2022-06-18 11:47:00 Dean chace [facility] MAGNESIUM 2022-06-18 11:47:00 Maya Charles [facility] PHOSPHORUS 2022-06-18 11:47:00 [facility] TROPONIN I 2022-06-18 11:47:00 [facility] CREATINE KINASE 2022-06-18 11:47:00 Dean chace [facility] POCT GLUCOSE (AUTOMATED) 2022-06-18 08:26:00 Antionette Grissom [facility] POCT GLUCOSE (AUTOMATED) 2022-06-18 08:26:00 Antionette Grissom [facility] CREATINE KINASE 2022-06-18 05:53:00 Maya Charles [facility] URIC ACID 2022-06-18 05:53:00 Maya Charles [facility] TROPONIN I 2022-06-18 05:53:00 Maya Charles [facility] THYROID STIMULATING 2022-06-18 05:53:00 [facility] H[facility] LIPID PANEL ([id number])(TOTAL 2022-06-18 05:53:00 Maya [facility] [place] CHOLESTEROL, Medical Branch TRIGLYCERIDES, HDL) URINALYSIS 2022-06-18 05:53:00 Maya Charles [facility] UREA NITROGEN, URINE 2022-06-18 05:53:00 Maya Charles [facility] Medical Branch SODIUM, URINE RANDOM 2022-06-18 05:53:00 Maya Charles [facility] PROTEIN CREAT RATIO URINE 2022-06-18 05:53:[address] [facility] URIC ACID 2022-06-18 05:53:00 Maya Charles [facility] CREATINE KINASE 2022-06-18 05:53:00 Maya Charles [facility] LIPID PANEL ([id number])(TOTAL 2022-06-18 05:53:00 Maya [facility] [place] CHOLESTEROL, Medical Branch TRIGLYCERIDES, HDL) THYROID STIMULATING 2022-06-18 05:53:00 [facility] HORMONE [facility] URINE CULTURE 2022-06-18 05:53:00 Maya Charles [facility] URINALYSIS 2022-06-18 05:53:00 Maya Charles [facility] UREA NITROGEN, URINE 2022-06-18 05:53:00 Maya Charles [facility] PROTEIN CREAT RATIO URINE 2022-06-18 05:53:00 Maya Charles [facility] [place] SODIUM, URINE RANDOM 2022-06-18 05:53:00 Maya Charles [facility] TROPONIN I 2022-06-18 05:53:00 Maya Charles [facility] POCT GLUCOSE (AUTOMATED) 2022-06-18 05:46:00 Antionette Grissom [facility] POCT GLUCOSE (AUTOMATED) 2022-06-18 05:46:00 Antionette Grissom [facility] XR CHEST 2 VW 2022-06-18 01:20:11 Melisa [facility] XR CHEST 2 VW 2022-06-18 01:20:11 Melisa [facility] TROPONIN I 2022-06-18 00:53:00 Melisa [facility] COMP. METABOLIC PANEL 2022-06-18 00:53:00 Melisa [facility] ([id number]) [facility] CBC WITH DIFF 2022-06-18 00:53:00 Melisa [facility] GLYCOSYLATED HEMOGLOBIN 2022-06-18 00:53:00 Maya Charles [facility] N-TERMINAL PRO-BNP 2022-06-18 00:53:00 Vianca Vincent [facility] CBC WITH DIFF 2022-06-18 00:53:00 Melisa [facility] COMP. METABOLIC PANEL 2022-06-18 00:53:00 Melisa [facility] ([id number]) [facility] TROPONIN I 2022-06-18 00:53:00 Melisa [facility] N-TERMINAL PRO-BNP 2022-06-18 00:53:00 Vianca Vincent [facility] GLYCOSYLATED HEMOGLOBIN 2022-06-18 00:53:00 Maya Charles [facility] (A1C) [facility] EKG-12 LEAD 2022-06-18 00:36:28 Laisha Thaddeus [facility] CONSENT/REFUSAL FOR 2022-06-18 00:22:56 Doctor Unassigned, [facility] DIAGNOSIS AND TREATMENT Katie [facility] [place] CONSENT/REFUSAL FOR 2022-06-18 00:22:56 Doctor Tong [facility] DIAGNOSIS AND TREATMENT Katie [facility] HOSPITAL ADMISSION 2022-06-17 06:01:00 Doctor Tong [facility] Name [facility] [place] CARDIAC DEVICE CHECK - 2022-06-04 22:35:00 Ryder Pemberton [facility] NURSE - PROGRAMMING DUAL Medical medicaid analyst PACEMAKER BASIC METABOLIC PANEL (NA, 2022-04-23 16:18:00 Vincent [facility] K, CL, CO2, GLUCOSE, BUN, [facility] CREATININE, CA) MAGNESIUM 2022-04-23 16:18:00 Vincent [facility] N-TERMINAL PRO-BNP 2022-04-23 16:18:00 Vincent [facility] BASIC METABOLIC PANEL (NA, 2022-04-11 19:01:00 Vincent [facility] K, CL, CO2, GLUCOSE, BUN, [facility] CREATININE, [place]) N-TERMINAL PRO-BNP 2022-04-11 19:01:00 Vincent [facility] MAGNESIUM 2022-04-11 19:01:00 Vincent [facility] CBC WITH DIFF 2022-04-11 19:01:00 Vincent [facility] PATIENT CORRESPONDENCE 2022-04-11 05:01:00 Doctor Unassigned, [facility] Katie Medical Branch DOCUMENTATION) PATIENT CORRESPONDENCE 2022-04-11 05:01:00 [facility] Katie Medical Branch DOCUMENTATION) PROSTATIC SPECIFIC ANTIGEN 2022-01-24 13:14:00 Zhen Jones U [facility] TESTOSTERONE LC-MS/MS 2022-01-24 13:14:00 Zhen Jones [facility] BIO&SHBG [facility] Branch POCT HEMOGLOBIN A1C TEST 2022-01-23 15:03:00 Zhen Jones [facility] PATIENT QUESTIONNAIRE 2022-01-23 05:01:00 Doctor Unassigned, Uni [facility] Katie Medical Branch Catheterization of right Memoria l Freddy heart Lithotripsy [facility] Placement of stent in [facility] ermann cardiac conduit<sup>1</sup> Plan of Care Planned Activity Planned Date Details Comments Source Future Scheduled 2022-10-31 COVID-19 VACCINE (#1) [facility] Test 09:08:58 [code = COVID-19 VACCINE (#1)] Future Scheduled 2022-10-31 [facility] Test 09:08:58 malignant neoplasm of colon (procedure) [code = 261421298] Future Scheduled 2022-10-31 SHINGLES VACCINES (1 [facility] Test 09:08:58 of 2) [code = SHINGLES VACCINES (1 of 2)] Future Scheduled 2022-10-31 INFLUENZA VACCINE [facility] Test 09:08:58 [code = INFLUENZA VACCINE] Future Scheduled 2021-05-23 COVID-19 VACCINE (1) [facility] Test 13:59:55 [code = COVID-19 VACCINE (1)] Future Scheduled 2021-05-23 COLONOSCOPY SCREENING [facility] Test 13:59:55 [code = COLONOSCOPY SCREENING] Future Scheduled 2021-05-23 SHINGLES VACCINES Method [facility] Test 13:59:55 (#1) [code = SHINGLES VACCINES (#1)] Future Scheduled 2021-05-23 INFLUENZA VACCINE [facility] Test 13:59:55 [code = INFLUENZA VACCINE] Encounters Start End Encounter Admission Attending Care Care Encounter Source Date/Time Date/Time Type Type Clinicians Facility Department ID 2021-04-23 Emergency [facility] [id number] Univers 20:41:10 ity of [facility] 2021-04-22 Emergency [facility] [id number] Univers 23:22:53 ity of [facility] 2021-04-22 Emergency [facility] [id number] Univers 11:37:14 ity of [facility] 2021-04-22 Emergency [facility] [id number] Univers 03:24:29 ity of [facility] 2021-04-22 Emergency [facility] [id number] Univers 01:26:[address] [facility] 2021-04-20 Emergency [facility] [id number] Univers 17:10:25 ity of [facility] 2021-04-20 Emergency [facility] [id number] Univers 13:17:25 ity of [facility] 2021-04-19 Emergency [facility] [id number] Univers 20:00:52 ity of [facility] 2021-04-19 Emergency [facility] [id number] Univers 18:29:39 ity of [facility] 2021-04-19 Emergency [facility] [id number] Univers 12:19:40 ity of [facility] 2021-04-19 Emergency [facility] [id number] Univers 11:01:[address] [facility] 2022-11-26 2022-11-26 Outpatient R BERNIE, [facility] [id number] Univers 11:40:00 11:40:00 SAMRA [facility] 2022-11-14 2022-11-14 Outpatient R JAVIER, [facility] [id number] Univers 14:00:00 14:43:00 FLORENCE [facility] 2022-11-14 2022-11-14 Patient Doctor 1.2.840.1 [id number] Univers 00:00:00 00:00:00 Secure Msg Unassigned, 82624.1.1 ity of Katie 3.104.2.7 [place] .3.231720 Medica l .[address] [place] [address] 2022-11-13 2022-11-13 Emergency X ADERIBIDESTINEYE, [facility] [id number] Univers 16:01:00 19:37:00 JUBRIL ity of [facility] 2022-11-13 2022-11-13 Emergency Aderibigbe, 1.2.840.0 [id number] Univers 16:01:00 19:37:00 Jubril 67498.1.1 ity of 3.104.2.7 [place] .3.354953 Medica l .8 [place] 2022-11-13 2022-11-13 Travel 1.2.840.1 1.2.168.369 [id number] Univers 00:00:00 00:00:00 71029.1.1 350.1.13.10 ity of 3.104.2.7 [place].3.698 [place] .3.932219 084.8 Medica l .8 [place] 2022-11-07 2022-11-07 Outpatient R KIESHA KILGORE [facility] [id number] Univers 13:30:00 17:12:33 ity of [facility] 2022-11-07 2022-11-07 Travel 1.2.840.1 1.2.222.747 [id number] Univers 00:00:00 00:00:00 40529.1.1 350.1.13.10 ity of 3.104.2.7 [place]3.698 [place] .3.183876 084.8 Medica l .8 [place] 2022-11-04 2022-11-04 Patient Luis Angelfe, 1.2.840.5 [id number] Univers 00:00:00 00:00:00 Secure Msg Benitom 88960.1.1 i ty of [place] 3.104.2.7 [place] .3.071489 Medica l .8 [place] 2022-10-31 2022-10-31 Outpatient R BERNIE [facility] [id number] Univers 15:00:00 15:00:00 SAMRA ity of [facility] 2022-10-31 2022-10-31 Emergency X LALA [facility] [id number] Univers 09:10:00 13:20:00 SOCORRO ity of [facility] 2022-10-31 2022-10-31 Emergency Lala, 1.2.840.1 [id number] Univers 09:10:00 13:20:00 Socorro S 75424.1.1 ity of 3.104.2.7 [place] .3.239271 Medica l .8 [place] 2022-10-31 2022-10-31 Travel 1.2.840.1 1.2.474.561 [id number] Univers 00:00:00 00:00:00 10454.1.1 350.1.13.10 ity of 3.104.2.7 [place]7.3.698 [place]3.254923 084.8 Medica l .8 Branch 2022-10-29 2022-10-29 Transition Juan, 1.2.840.9 [id number] Univers 00:00:00 00:00:00 of Care Miles Payne 59291.1.1 it y of 3.104.2.7 [place] .3.806922 Medica l .8 Branch 2022-10-29 2022-10-29 Telephone Sindy, 1.2.840.1 [id number] Univers 00:00:00 00:00:00 Wisteena 16429.1.1 ity of [place] 3.104.2.7 [place] .3.616458 Medica l .8 Branch 2022-10-28 2022-10-28 Refill Bernie, 1.2.840.8 [id number] Univers 00:00:00 00:00:00 Samra 03628.1.1 ity of 3.104.2.7 [place] .3.127354 Medica l .8 Branch 2022-10-26 2022-10-27 Outpatient X KARISSA [facility] [id number] Univers 14:48:00 15:32:00 JOSE MARTIN ity of [facility] 2022-10-26 2022-10-27 Emergency [facility] Naty 1.2.840.5 [id number] Univers 14:48:00 15:32:00 Jose Martin Reece 35965.1.1 ity of 3.104.2.7 [place] .3.392081 Medica l .8 Branch 2022-10-26 2022-10-26 Travel 1.2.840.1 1.2.698.099 [id number] Univers 00:00:00 00:00:00 57886.1.1 350.1.13.10 ity of 3.104.2.7 4.[place]7.3.698 [place] .3.316225 084.8 Medica l .8 Branch 2022-10-25 2022-10-25 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 [employer] Samra Gibbs 1.2.840.1 [id number] Univers 12:45:00 12:57:14 Visit Mehdi Cornejo [facility] Main 23897.1.1 ity of 3.104.2.7 [place] .3.943963 Medica l .8 [place] 2022-10-25 2022-10-25 Outpatient R BERNIE, [facility] [id number] [facility] 12:45:00 12:45:00 PETER ity of [facility] 2022-10-25 2022-10-25 Telephone Bernie, 1.2.840.4 [id number] Univers 00:00:00 00:00:00 Samra 57407.1.1 ity of 3.104.2.7 [place] .3.872610 Medica l .8 Branch 2022-10-24 2022-10-24 Refill Jones, 1.2.840.6 [id number] Univers 00:00:00 00:00:00 Wentong 30782.1.1 ity of 3.104.2.7 [place] .3.128386 Medica l .8 Branch 2022-10-23 2022-10-23 Refill Jones, 1.2.840.2 [id number] Univers 00:00:00 00:00:00 Wentong 54052.1.1 ity of 3.104.2.7 [place] .3.194300 Medica l .8 [place] 2022-10-22 2022-10-22 Patient Doctor 1.2.840.0 [id number] Univers 00:00:00 00:00:00 Secure Msg Unassigned, 58632.1.1 ity of Katie 3.104.2.7 [place] .3.477278 Medica l .8 Branch 2022-10-15 2022-10-15 Office Sindy, 1.2.840.6 [id number] Univers 13:00:00 17:05:37 Visit Krystina 49021.1.1 ity of [place] 3.104.2.7 [place] .3.584324 Medica l .8 Branch 2022-10-15 2022-10-15 Outpatient R SINDY, [facility] [id number] Univers 13:00:00 13:00:00 KRYSTINA ity of [facility] 2022-10-15 2022-10-15 Travel 1.2.840.1 1.2.665.797 [id number] Univers 00:00:00 00:00:00 51996.1.1 350.1.13.10 ity of 3.104.2.7 4[place]7.3.698 [place] .3.592133 084.8 Medica l .8 [place] 2022-10-10 2022-10-10 Outpatient R HERRERA, [facility] [id number] Univers 15:00:00 15:00:00 FLORENCE [facility] 2022-10-03 2022-10-03 Nurse Robbin Griffiths 1.2.840.1 [id number] Univers 08:00:00 11:30:00 Visit 2, Adc Infusion Chair 40558.1.1 ity of 3.104.2.7 [place] .3.887737 Medica l .8 [place] 2022-10-03 2022-10-03 Outpatient R AYE, [facility] [id number] Univers 08:00:00 08:00:[address] [facility] 2022-10-02 2022-10-02 Outpatient R BERNIE, [facility] [id number] Univers 11:00:00 12:57:[address] [facility] 2022-10-02 2022-10-02 Telemedici Bernie, 1.2.840.4 [id number] Univers 11:00:00 12:57:57 ne Visit Samra 75952.1.1 ity of 3.104.2.7 [place] .3.342711 Medica l .8 [place] 2022-10-02 2022-10-02 Travel 1.2.840.1 1.2.655.518 [id number] Univers 00:00:00 00:00:00 79895.1.1 350.1.13.10 ity of 3.104.2.7 4.[place].7.3.698 [place] .3.911890 084.8 Medica l .8 [place] 2022-09-26 2022-09-26 Outpatient R [facility] [id number] Univers 08:30:00 08:30:00 ity of [facility] 2022-09-24 2022-09-24 Patient [place], 1.2.840.1 [id number] Univers 00:00:00 00:00:00 Secure Msg Peter 85278.1.1 i ty of 3.104.2.7 [place] .3.108660 Medica l .8 [place] 2022-09-23 2022-09-23 Refill Lupe, 1.2.840.6 [id number] Univers 00:00:00 00:00:00 Cecilio Payne 93557.1.1 ity of 3.104.2.7 [place] .3.376280 Medica l .8 [place] 2022-09-16 2022-09-16 Patient Doctor 1.2.840.0 [id number] Univers 00:00:00 00:00:00 Secure Msg Unassigned, 45104.1.1 ity of Katie 3.104.2.7 [place] .3.361290 Medica l .8 [place] 2022-09-12 2022-09-12 Office Aye, 1.2.840.0 [id number] Univers 13:00:00 13:37:01 Visit Tejo 68832.1.1 ity of 3.104.2.7 [place] .3.644846 Medica l .8 [place] 2022-09-12 2022-09-12 Outpatient R AYE [facility] [id number] Univers 13:00:00 13:00:00 TEJO ity of [facility] 2022-09-12 2022-09-12 Outpatient R AYE [facility] [id number] Univers 13:00:00 13:00:00 TEJO ity of [facility] 2022-09-12 2022-09-12 [facility] [id number] Univers 13:00:00 13:00:00 ALLYSONJO ity of [facility] 2022-09-12 2022-09-12 Travel 1.2.840.1 1.2.879.469 [id number] Univers 00:00:00 00:00:00 18558.1.1 350.1.13.10 ity of 3.104.2.7 4.[place].7.3.698 [place] .3.141596 084.8 Medica l .8 [place] 2022-09-10 2022-09-10 Outpatient R HERRERA, [facility] [id number] Univers 13:00:00 13:48:11 FLORENCE ity of [facility] 2022-09-10 2022-09-10 Abstract Bernie, 1.2.840.8 [id number] Univers 00:00:00 00:00:00 Peter 60315.1.1 ity of 3.104.2.7 [place] .3.953921 Medica l .8 [place] 2022-09-10 2022-09-10 Travel 1.2.840.1 1.2.101.176 [id number] Univers 00:00:00 00:00:00 96438.1.1 350.1.13.10 ity of 3.104.2.7 4.[place].3.698 [place] .3.649705 084.8 Medica l .8 [place] 2022-09-03 2022-09-03 Telephone Bernie, 1.2.840.9 [id number] Univers 00:00:00 00:00:00 Peter 32941.1.1 ity of 3.104.2.7 [place] .3.256636 Medica l .8 [place] 2022-08-31 2022-08-31 Linda Andrade, 1.2.840.9 [id number] Univers 00:00:00 00:00:00 Cecilio Payne 60400.1.1 ity of 3.104.2.7 [place] .3.881670 [facility] [place] 2022-08-29 2022-08-29 Outpatient R JAME KIESHA [facility] [id number] Univers 13:30:00 14:21:59 ity of [facility] 2022-08-29 2022-08-29 Travel 1.2.840.1 1.2.236.754 8383 [id number] Univers 00:00:00 00:00:00 07507.1.1 350.1.13.10 ity of 3.104.2.7 [place]3.698 [place] 084.8 [place] .8 [place] 2022-08-20 2022-08-20 Letter Lakesha, 1.2.840.6 [id number] Univers 00:00:00 00:00:00 (Out) Fidel 99305.1.1 ity of 3.104.2.7 [place] .3.767759 [facility] .[facility] [place] 2022-08-19 2022-08-19 Outpatient R AYO [facility] [id number] Univers 11:00:00 11:00:00 STACI ity of [facility] 2022-08-19 2022-08-19 Laboratory Unknown, Attending 1.2.840.1 10 [id number] Univers 11:00:00 11:00:00 Only Staci Rollins 09365.1.1 ity of Only, Ang Db Test 3.104.2.7 [place] .3.177824 [facility] .[facility] [place] 2022-08-19 2022-08-19 Linda Andrade, 1.2.840.1 [id number] Univers 00:00:00 00:00:00 Cecilio Payne 26078.1.1 ity of 3.104.2.7 [place] .3.293357 Med[facility] l .8 [place] 2022-08-19 2022-08-19 Travel 1.2.840.1 1.2.387.110 9599 [id number] Univers 00:00:00 00:00:00 74685.1.1 350.1.13.10 ity of 3.104.2.7 [place].3.698 [place]3.427089 084.8 [facility] .8 [place] 2022-08-14 2022-08-14 Telephone Chevy Gibbs.2.840.2 [id number] Univers 00:00:00 00:00:00 Samra 62962.1.1 ity of 3.104.2.7 [place] .3.925542 Med[facility] .8 [place] 2022-08-13 2022-08-13 Outpatient R JAVIER [facility] [id number] Univers 13:00:00 13:47:30 FLORENCE ity of [facility] 2022-08-13 2022-08-13 Travel 1.2.840.1 1.2.315.405 4288 [id number] Univers 00:00:00 00:00:00 91196.1.1 350.1.13.10 ity of 3.104.2.7 [place].3.698 [place]3.309740 084.8 [facility] l .8 [place] 2022-08-01 2022-08-01 Outpatient R KIESHA KILGORE [facility] [id number] Univers 13:30:00 14:27:31 ity of [facility] 2022-07-30 2022-07-30 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 Samra Gibbs 1.2.840.1 [id number] Univers 15:30:00 15:40:34 Visit Lab, Ang - Db 33558.1.1 ity of 3.104.2.7 [place] .3.133059 Medica l .8 [place] 2022-07-30 2022-07-30 Outpatient Toan JONES [facility] [id number] Univers 15:00:00 15:30:22 WENTONG ity of [facility] 2022-07-30 2022-07-30 Office Robert, 1.2.840.9 [id number] Univers 15:00:00 15:30:22 Visit Zhen 52255.1.1 ity of 3.104.2.7 [place] .3.219112 Med[facility] .[facility] [place] 2022-07-30 2022-07-30 Travel 1.2.840.1 1.2.921.826 0881 [id number] Univers 00:00:00 00:00:00 19055.1.1 350.1.13.10 ity of 3.104.2.7 [place].3.698 [place]3.390824 084.8 [facility] .[facility] [place] 2022-07-19 2022-07-19 Outpatient R JAVIER, [facility] [id number] Univers 14:00:00 14:40:[address] [facility] 2022-07-10 2022-07-10 Transition Alvin, 1.2.840.0 [id number] Univers 00:00:00 00:00:00 of Care Angelique L 40774.1.1 ity of 3.104.2.7 [place] .3.366073 Med[facility] .[facility] [place] 2022-07-08 2022-07-09 [facility] [id number] Univers 16:35:00 11:21:00 THADDEUS [facility] 2022-07-08 2022-07-09 Emergency Morrical, Harry O 1.2.840.1 10 [id number] Univers 16:35:00 11:21:00 Thaddeus Interiano 96601.1.1 ity of 3.104.2.7 [place] .3.985321 Med[facility] l .[facility] [place] 2022-07-08 2022-07-08 Travel 1.2.840.1 1.2.289.045 3238 5623 Univers 00:00:00 00:00:00 78058.1.1 350.1.13.10 ity of 3.104.2.7 [place]7.3.698 [place]3.579122 084.8 [facility] l .[facility] [place] 2022-07-01 2022-07-01 Outpatient R JAVIER, [facility] [id number] Univers 10:00:00 10:43:[address] [facility] 2022-06-25 2022-06-25 Outpatient R BASHIR, [facility] [id number] Univers 16:30:00 17:38:[address] [facility] 2022-06-25 2022-06-25 Office Bashir, 1.2.840.0 [id number] Univers 16:30:00 17:38:01 Visit Chiquis Jansen 73767.1.1 ity of 3.104.2.7 [place] .3.868388 [facility] .[facility] [place] 2022-06-24 2022-06-24 Outpatient R BERINE [facility] 1043 [id number] Univers 10:00:00 10:50:30 SAMRA ity of [facility] 2022-06-24 2022-06-24 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 Samra Gibbs 1.2.840.1 1023 [id number] Univers 10:00:00 10:50:30 Visit 2, Adc Lab 60785.1.1 i ty of 3.104.2.7 [place] .3.132260 [facility] .[facility] [place] 2022-06-24 2022-06-24 Travel 1.2.840.1 1.2.430.890 7417 3358 Univers 00:00:00 00:00:00 80920.1.1 350.1.13.10 ity of 3.104.2.7 [place]7.3.698 [place]3.112023 084.8 [facility] [facility] .[facility] [place] 2022-06-21 2022-06-21 Telephone Sindy, 1.2.840.8 [id number] Univers 00:00:00 00:00:00 Krystina 74018.1.1 ity of [place] 3.104.2.7 [place] .3.726669 [facility] .[facility] [place] 2022-06-21 2022-06-21 Patient Doctor 1.2.840.0 [id number] Univers 00:00:00 00:00:00 Secure Msg Unassigned, 51525.1.1 ity of Katie 3.104.2.7 [place] .3.278716 [facility] [place] 2022-06-21 2022-06-21 Patient Doctor 1.2.840.4 [id number] Univers 00:00:00 00:00:00 Secure Msg Unassigned, 69243.1.1 ity of [place] 3.104.2.7 [place] .3.538774 [facility] [place] 2022-06-20 2022-06-20 Outpatient R BERNIE [facility] [id number] [id number] Univers 14:40:00 16:08:[address] [facility] 2022-06-20 2022-06-20 [facility] 1.2.840.1 [id number] Univers 14:40:00 16:08:58 Visit Samar 90686.1.1 ity of 3.104.2.7 [place] .3.922450 [facility] .[facility] [place] 2022-06-20 2022-06-20 Transition Alvin, 1.2.840.2 [id number] Univers 00:00:00 00:00:00 of Care Angelique L 31308.1.1 ity of 3.104.2.7 [place] .3.943353 [facility] [place] 2022-06-20 2022-06-20 Travel 1.2.840.1 1.2.708.918 6474 9038 Univers 00:00:00 00:00:00 60705.1.1 350.1.13.10 ity of 3.104.2.7 4.[place].7.3.698 [place] .3.681366 084.8 [facility] .[facility] [place] 2022-06-19 2022-06-19 Patient Doctor 1.2.840.6 [id number] Univers 00:00:00 00:00:00 Secure Msg Unassigned, 06263.1.1 ity of [place] 3.104.2.7 [place] .3.740265 [facility] [place] 2022-06-18 2022-06-18 [id number] [id number] Univers 15:00:00 15:00:00 SAMRA alba of [facility] 2022-06-17 2022-06-18 [facility] [id number] Univers 18:30:00 14:41:00 THADDEUS ity of [facility] 2022-06-17 2022-06-18 Emergency AuVianca adams 1.2.840. 0 [id number] Univers 18:30:00 14:41:00 Antionette Grissom 10444.1.1 ity of Thaddeus Interiano 3.104.2.7 [place] .3.183874 [facility] [place] 2022-06-18 2022-06-18 Telephone Ravendevan, 1.2.840.2 [id number] Univers 00:00:00 00:00:00 Krystina 16946.1.1 ity of Namita 3.104.2.7 [place] .3.692179 [facility] [place] 2022-06-17 2022-06-17 Travel 1.2.840.1 1.2.814.894 8174 [id number] Univers 00:00:00 00:00:00 92819.1.1 350.1.13.10 ity of 3.104.2.7 4.[place].7.3.698 [place] .3.804053 084.8 [facility] l .8 [place] 2022-06-13 2022-06-13 Outpatient R KIESHA KILGORE [facility] 004 [id number] Univers 14:15:00 14:31:08 ity of [facility] 2022-06-13 2022-06-13 Travel 1.2.840.1 1.2.033.009 6676 [id number] Univers 00:00:00 00:00:00 87585.1.1 350.1.13.10 ity of 3.104.2.7 [place].7.3.698 [place] .3.272042 084.8 [facility] l .[facility] [place] 2022-06-04 2022-06-04 Outpatient R NIECY [facility] [id number] Univers 09:34:05 23:59:00 RYDER ity of [facility] 2022-06-04 2022-06-04 [facility] Niecy, 1.2.840.6 [id number] Univers 09:34:05 23:59:00 Encounter Ryder 13606.1.1 it y of 3.104.2.7 [place] .3.664538 Med[facility] l .8 [place] 2022-06-04 2022-06-04 Travel 1.2.840.1 1.2.914.474 7894 6680 Univers 00:00:00 00:00:00 39719.1.1 350.1.13.10 ity of 3.104.2.7 4.[place].7.3.698 [place] .3.664700 084.8 [facility] .8 [place] 2022-05-31 2022-05-31 [facility] [id number] Univers 16:00:00 16:29:[address] [facility] 2022-05-21 2022-05-21 Refill Lupe, 1.2.840.6 [id number] Univers 00:00:00 00:00:00 Cecilio Payne 81983.1.1 ity of 3.104.2.7 [place] .3.035040 [facility] [place] 2022-05-02 2022-05-02 Office Noman, 1.2.840.6 [id number] Univers 14:00:00 14:54:38 Visit Aishat 98107.1.1 ity of Cordell 3.104.2.7 [place] .3.421742 Med[facility] .[facility] [place] 2022-05-02 2022-05-02 [facility] [id number] Univers 14:00:00 14:00:00 AISHAT ity of [facility] 2022-05-02 2022-05-02 Travel 1.2.840.1 1.2.841.650 5076 [id number] Univers 00:00:00 00:00:00 62259.1.1 350.1.13.10 ity of 3.104.2.7 4.[place].7.3.698 [place] .3.264812 084.8 [facility] l .8 [place] 2022-04-26 2022-04-26 Outpatient [facility] [id number] Univers 13:00:00 13:41:54 FLORENCE ity of [facility] 2022-04-26 2022-04-26 Refill Jerry, 1.2.840.3 [id number] Univers 00:00:00 00:00:00 Urszula 63330.1.1 ity of 3.104.2.7 [place] .3.718105 [facility] .[facility] [place] 2022-04-26 2022-04-26 Refill Jerry, 1.2.840.0 [id number] Univers 00:00:00 00:00:00 Urszula 41560.1.1 ity of 3.104.2.7 [place] .3.510501 [facility] [place] 2022-04-23 2022-04-23 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 Krystina Adkins 1.2.840 .1 [id number] Univers 11:00:00 11:15:00 Visit 2, Adc Lab 26607.1.1 i ty of 3.104.2.7 [place] .3.710041 [facility] l .[facility] [place] 2022-04-23 2022-04-23 Outpatient R SINDY [facility] [id number] Univers 11:00:00 11:00:00 DENNISESAMomo ity of [facility] 2022-04-22 2022-04-22 Refill Parish, 1.2.840.6 [id number] Univers 00:00:00 00:00:00 Al 74629.1.1 ity of 3.104.2.7 [place] .3.420322 [facility] [place] 2022-04-12 2022-04-12 Telephone Sindy 1.2.840.5 [id number] Univers 00:00:00 00:00:00 Krystina 91081.1.1 ity of [place] 3.104.2.7 [place] .3.847308 [facility] .[facility] [place] 2022-04-11 2022-04-11 Outpatient R KIESHA KILGORE [facility] [id number] Univers 15:00:00 15:34:42 ity of [facility] 2022-04-112022-04-11 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 Renate Florian 1.2.840.4 [id number] Univers 14:30:00 15:02:37 Visit Draw, [facility] Lab 12349.1.1 ity of 3.104.2.7 [place] .3.894693 [facility] .[facility] [place] 2022-04-11 2022-04-11 Outpatient R VINCENT [facility] [id number] Univers 14:30:00 14:30:00 RENATE [facility] 2022-04-11 2022-04-11 Office Vincent, 1.2.840.4 [id number] Univers 13:40:00 13:53:28 Visit Renateerin Pickens 40295.1.1 i ty of 3.104.2.7 [place] .3.092966 [facility] [place] 2022-04-11 2022-04-11 Orders Doctor 1.2.840.1 [id number] Univers 00:00:00 00:00:00 Only Unassigned, 37253.1.1 ity of Katie 3.104.2.7 [place] .3.526309 [facility] [place] 2022-04-11 2022-04-11 Travel 1.2.840.1 1.2.112.793 8720 9876 Univers 00:00:00 00:00:00 08102.1.1 350.1.13.10 ity of 3.104.2.7 4.2.7.3.698 [place] .3.561003 084.8 [facility] l .[facility] [place] 2022-04-03 2022-04-03 Outpatient R JAVIER [facility] [id number] Univers 13:00:00 13:44:27 FLORENCE [facility] 2022-03-14 2022-03-14 [facility] [id number] [id number] Univers 14:40:00 15:58:40 CECILIO [facility] 2022-03-14 2022-03-14 Office Lupe, 1.2.840.9 [id number] Univers 14:40:00 15:58:40 Visit Cecilio Payne 81291.1.1 ity of 3.104.2.7 [place] .3.723572 [facility] .[facility] [place] 2022-03-14 2022-03-14 Travel 1.2.840.1 1.2.324.850 6537 [id number] Univers 00:00:00 00:00:00 88659.1.1 350.1.13.10 ity of 3.104.2.7 4.2.7.3.698 [place] .3.124378 084.8 [facility] l .[facility] [place] 2022-03-08 2022-03-08 Patient Jones, 1.2.840.2 [id number] Univers 00:00:00 00:00:00 Secure Msg Fontaine 57447.1.1 i ty of 3.104.2.7 [place] .3.603859 [facility] [place] 2022-03-08 2022-03-08 Refill Sindy, 1.2.840.9 [id number] Univers 00:00:00 00:00:00 Dennisesamomo 52096.1.1 ity of [place] 3.104.2.7 [place] .3.492171 [facility] [place] 2022-03-07 2022-03-07 Outpatient KIESHA CONTI [facility] [id number] [id number] Univers 14:15:00 15:18:13 ity of [facility] 2022-03-07 2022-03-07 Travel 1.2.840.1 1.2.534.512 9753 [id number] Univers 00:00:00 00:00:00 84233.1.1 350.1.13.10 ity of 3.104.2.7 4.2.7.3.698 [place] .3.139034 084.8 [facility] l .8 [place] 2022-03-04 2022-03-04 Outpatient Toan HERRERA [facility] [id number] Univers 13:00:00 13:42:16 FLORENCE ity of [facility] 2022-02-26 2022-02-26 Refill Khalife, 1.2.840.1 [id number] Univers 00:00:00 00:00:00 Wissam 30953.1.1 ity of [place] 3.104.2.7 [place] .3.868060 [facility] [place] 2022-02-24 2022-02-24 Refill Khalife, 1.2.840.3 [id number] Univers 00:00:00 00:00:00 Wissam 04849.1.1 ity of [place] 3.104.2.7 [place] .3.838351 [facility] [place] 2022-02-19 2022-02-19 Refill Jerry, 1.2.840.8 [id number] Univers 00:00:00 00:00:00 Urszula 31040.1.1 ity of 3.104.2.7 [place] .3.267172 [facility] [place] 2022-02-19 2022-02-19 Refill Lupe, 1.2.840.6 [id number] Univers 00:00:00 00:00:00 Cecilio A 94002.1.1 ity of 3.104.2.7 [place] .3.814200 [facility] [place] 2022-02-19 2022-02-19 Refill Andrade, 1.2.840.7 [id number] Univers 00:00:00 00:00:00 Cecilio A 45675.1.1 ity of 3.104.2.7 [place] .3.515604 [facility] [place] 2022-02-04 2022-02-04 Outpatient R JAVIER, [facility] [id number] Univers 14:00:00 14:38:46 FLORENCE ity of [facility] 2022-01-28 2022-01-28 Refill Lulú [place] 1.2.840.3 [id number] Univers 00:00:00 00:00:00 N 68948.1.1 ity of 3.104.2.7 [place] .3.668389 [facility] [place] 2022-01-282022-01-28 Refill Lulú [place] 1.2.840.9 [id number] Univers 00:00:00 00:00:00 N 22255.1.1 ity of 3.104.2.7 [place] .3.684390 [facility] [place] 2022-01-24 2022-01-24 Outpatient R KIESHA KILGORE [facility] [id number] Univers 14:15:00 15:02:25 ity of [facility] 2022-01-24 2022-01-24 Outpatient R KIESHA KILGORE [facility] [id number] Univers 14:15:00 15:02:[address] [facility] 2022-01-24 2022-01-24 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 Zhen Jones 1.2.840.1 [id number] Univers 08:15:00 08:30:00 Visit 2, Adc Lab 53906.1.1 i ty of 3.104.2.7 [place] .3.592912 Medica l [address] [place] [address] 2022-01-24 2022-01-24 [facility] [id number] Univers 08:15:00 08:15:00 WENTONG ity of [facility] 2022-01-24 2022-01-24 Outpatient R [facility] [id number] Univers 08:15:00 08:15:00 ity of [facility] 2022-01-24 2022-01-24 [facility] [id number] Univers 08:15:00 08:15:00 NILTONONG ity of [facility] 2022-01-24 2022-01-24 [facility] [id number] Univers 08:15:00 08:15:[address] [facility] 2022-01-24 2022-01-24 Travel 1.2.840.1 1.2.326.798 2309 [id number] Univers 00:00:00 00:00:00 92760.1.1 350.1.13.10 ity of 3.104.2.7 4.2.7.3.698 [place] .3.012942 084.8 Medica l [address] [place] [address] 2022-01-23 2022-01-23 Outpatient R ROBERT, [facility] [id number] Univers 10:00:00 10:38:59 WENTONG ity of [facility] 2022-01-23 2022-01-23 Office Jones, 1.2.840.1 [id number] Univers 10:00:00 10:38:59 Visit Wentong 10949.1.1 ity of 3.104.2.7 [place] .3.866085 [facility] [place] 2022-01-23 2022-01-23 Office Jones, 1.2.840.1 [id number] Univers 10:00:00 10:38:59 Visit Wentong 95055.1.1 ity of 3.104.2.7 [place] .3.004722 [facility] [place] 2022-01-23 2022-01-23 Travel 1.2.840.1 1.2.682.971 2785 3723 Univers 00:00:00 00:00:00 50437.1.1 350.1.13.10 ity of 3.104.2.7 4.2.7.3.698 [place] .3.103835 084.8 [facility] l .[facility] [place] 2022-01-23 2022-01-23 Orders Doctor 1.2.840.1 [id number] Univers 00:00:00 00:00:00 Only Unassigned, 08987.1.1 ity of [place] 3.104.2.7 [place] .3.804317 [facility] [place] 2022-01-15 2022-01-15 [facility] [id number] Univers 10:00:00 10:00:00 WENTONG ity of [facility] 2022-01-08 2022-01-08 [facility] [id number] Univers 15:00:00 16:22:[address] [facility] 2022-01-08 2022-01-08 Outpatient R LUPE [facility] [id number] [id number] Univers 15:00:00 16:22:[address] [facility] 2022-01-08 2022-01-08 Office Lupe, 1.2.840.9 [id number] Univers 15:00:00 16:22:43 Visit Cecilio Payne 23721.1.1 ity of 3.104.2.7 [place] .3.514054 [facility] [place] 2022-01-08 2022-01-08 [facility] [id number] [id number] Univers 15:00:00 15:00:[address] [facility] 2022-01-08 2022-01-08 Travel 1.2.840.1 1.2.354.001 5618 0287 Univers 00:00:00 00:00:00 97669.1.1 350.1.13.10 ity of 3.104.2.7 4.2.7.3.698 [place] .3.621661 084.8 Medica l [address] [place] [address] 2022-01-02 2022-01-02 Outpatient Toan HERRERA [facility] [id number] Univers 14:00:00 14:47:06 [facility] 2022-01-02 2022-01-02 Outpatient [facility] [id number] Univers 14:00[facility]00 [facility]47[facility] 2021-12[facility]13 Outpatient KIESHA CONTI [facility] [id number] Univers 14:30:00 15:16:[address] [facility] 2021-12-13 2021-12-13 Outpatient KIESHA CONTI [facility] [id number] Univers 14:30:00 14:30:[address] [facility] 2021-12-13 2021-12-13 Travel 1.2.840.1 1.2.948.543 3373 3388 Univers 00:00:00 00:00:00 63407.1.1 350.1.13.10 ity of 3.104.2.7 4.2.7.3.698 [place] .3.202582 084.8 [facility] l .[facility] [place] 2021-12-13 2021-12-13 Travel 1.2.840.1 1.2.599.981 1086 3388 Univers 00:00:00 00:00:00 33677.1.1 350.1.13.10 ity of 3.104.2.7 4.2.7.3.698 [place] .3.496514 084.8 [facility] l .8 [place] 2021-12-13 2021-12-13 Travel 1.2.840.1 1.2.614.861 2441 3388 Univers 00:00:00 00:00:00 79607.1.1 350.1.13.10 ity of 3.104.2.7 4.2.7.3.698 [place] .3.479604 084.8 [facility] l .[facility] [place] 2021-12-10 2021-12-10 [facility] [id number] Univers 11:00:00 11:00:[address] [facility] 2021-12-10 2021-12-10 Outpatient [facility] [id number] Univers 11:00:00 11:00:[address] [facility] 2021-12-04 2021-12-04 [facility] [id number] Univers 09:25:05 23:59:00 RYDER ity of [facility] 2021-12-04 2021-12-04 [facility], 1.2.840.3 [id number] Univers 09:25:05 23:59:00 Encounter Ryder 69719.1.1 it y of 3.104.2.7 [place] .3.924680 [facility] [place] 2021-12-04 2021-12-04 [facility] [id number] Univers 09:25:05 23:59:00 RYDER ity of [facility] 2021-12-04 2021-12-04 [facility], 1.2.840.9 [id number] Univers 09:25:05 23:59:00 Encounter Ryder 55928.1.1 it y of 3.104.2.7 [place] .3.585698 [facility] [place] 2021-12-04 2021-12-04 Hospital [facility], 1.2.840.6 [id number] Univers 09:25:05 23:59:00 Encounter Ryder 50008.1.1 it y of 3.104.2.7 [place] .3.307695 [facility] [place] 2021-12-04 2021-12-04 Refill [facility], 1.2.840.4 [id number] Univers 00:00:00 00:00:00 Nara 57727.1.1 ity of 3.104.2.7 [place] .3.813429 [facility] [place] 2021-12-04 2021-12-04 Travel 1.2.840.1 1.2.462.013 8802 3889 Univers 00:00:00 00:00:00 72791.1.1 350.1.13.10 ity of 3.104.2.7 4[place]7.3.698 [place] .3.555968 084.8 Medica l .8 [place] 2021-12-04 2021-12-04 Travel 1.2.840.1 1.2.513.048 9317 3889 Univers 00:00:00 00:00:00 82228.1.1 350.1.13.10 ity of 3.104.2.7 4[place].3.698 [place] .3.858782 084.8 Medica l .8 [place] 2021-12-04 2021-12-04 Refill Kalyn, 1.2.840.4 [id number] 9424 1518 Univers 00:00:00 00:00:00 Nara 51185.1.1 ity of 3.104.2.7 [place] .3.476272 Medica l .8 [place] 2021-12-04 2021-12-04 Travel 1.2.840.1 1.2.181.391 8693 3889 Univers 00:00:00 00:00:00 84683.1.1 350.1.13.10 ity of 3.104.2.7 4[place].3.698 [place] .3.510902 084.8 Medica l .8 [place] 2021-12-04 2021-12-04 Refill Kalyn, 1.2.840.5 [id number] 9424 1518 Univers 00:00:00 00:00:00 Nara 25794.1.1 ity of 3.104.2.7 [place] .3.872784 Medica l .8 [place] 2021-12-03 2021-12-03 Refill Kalyn, 1.2.840.0 [id number] 9423 3294 Univers 00:00:00 00:00:00 Nara 25974.1.1 ity of 3.104.2.7 [place] .3.068756 Medica l .8 [place] 2021-12-03 2021-12-03 Refill Kalyn, 1.2.840.2 [id number] 9423 3294 Univers 00:00:00 00:00:00 Nara 77524.1.1 ity of 3.104.2.7 [place] .3.334379 Medica l .8 [place] 2021-12-03 2021-12-03 Refill Kalyn, 1.2.840.3 [id number] 9423 3294 Univers 00:00:00 00:00:00 Nara 54517.1.1 ity of 3.104.2.7 [place] .3.066243 Medica l .8 [place] 2021-11-28 2021-11-28 Patient Mina, 1.2.840.0 [id number] [id number] Univers 00:00:00 00:00:00 Secure Msg Sherri 38829.1.1 i ty of 3.104.2.7 [place] .3.720967 Medica l .8 [place] 2021-11-28 2021-11-28 Patient Mina, 1.2.840.1 [id number] [id number] Univers 00:00:00 00:00:00 Secure Msg Sherri 72845.1.1 i ty of 3.104.2.7 [place] .3.888475 Medica l .8 [place] 2021-11-28 2021-11-28 Patient Leopoldo, 1.2.840.3 [id number] [id number] Univers 00:00:00 00:00:00 Secure Msg Polanco 45601.1.1 i ty of 3.104.2.7 [place] .3.444923 Medica l .8 [place] 2021-11-27 2021-11-27 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 Cecilio Andrade 1.2.840. 6 [id number] Univers 16:15:00 16:30:00 Visit 2, [facility] 27975.1.1 i ty of 3.104.2.7 [place] .3.904587 Medica l .8 [place] 2021-11-27 2021-11-27 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 Cecilio Andrade 1.2.840. 9 [id number] Univers 16:15:00 16:30:00 Visit 2, Adc Lab 66499.1.1 i ty of 3.104.2.7 [place] .3.455341 Medica l .8 [place] 2021-11-27 2021-11-27 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 Cecilio Andrade 1.2.840. 8 [id number] Univers 16:15:00 16:30:00 Visit 2, Adc Lab 36948.1.1 i ty of 3.104.2.7 [place] .3.517565 Medica l .8 [place] 2021-11-27 2021-11-27 [id number] Univers 16:15:00 16:15:00 CECILIO alba of [facility] 2021-11-27 2021-11-27 Office Lupe 1.2.840.1 [id number] Univers 15:00:00 16:11:03 Visit Cecilio Payne 93754.1.1 ity of 3.104.2.7 [place] .3.513884 Medica l .8 [place] 2021-11-27 2021-11-27 [facility] [id number] Univers 15:00:00 16:11:[address] [facility] 2021-11-27 2021-11-27 Office Andrade, 1.2.840.3 [id number] Univers 15:00:00 16:11:03 Visit Cecilio A 07846.1.1 ity of 3.104.2.7 [place] .3.594499 Medica l .8 [place] 2021-11-05 2021-11-05 Outpatient R JAVIER, [facility] [id number] Univers 11:00:00 11:39:[address] [facility] 2021-10-30 2021-10-30 Outpatient R SINDY, [facility] [id number] Univers 13:00:00 13:50:47 [facility] 2021-10-30 Office Khalife, 1.2.840.9 [id number] Univers 13:00:00 13:50:47 Visit Krystina 38173.1.1 ity of [place] 3.104.2.7 [place] .3.027571 Medica l .8 [place] 2021-10-30 2021-10-30 Office Khalife, 1.2.840.5 [id number] [id number] Univers 13:00:00 13:50:47 Visit Krystina 30524.1.1 ity of [place] 3.104.2.7 [place] .3.957007 Medica l .8 [place] 2021-10-30 2021-10-30 Office Khalife, 1.2.840.6 [id number] [id number] Univers 13:00:00 13:50:47 Visit Benito 81398.1.1 ity of [place] 3.104.2.7 [place] .3.445916 Medica l .8 [place] 2021-10-30 2021-10-30 Office Khalife, 1.2.840.6 [id number] [id number] Univers 13:00:00 13:50:47 Visit Benito 06008.1.1 ity of [place] 3.104.2.7 [place] .3.292257 Medica l .8 [place] 2021-10-30 2021-10-30 Office Sindy, 1.2.840.6 [id number] Univers 13:00:00 13:50:47 Visit [facility] 96793.1.1 ity of [place] 3.104.2.7 [place] .3.550825 Medica l 8 [place] 2021-10-30 2021-10-30 [facility] [id number] Univers 13:00:00 13:00:00 [facility] 2021-10-30 2021-10-30 Outpatient R [facility] [facility] [id number] Univers 13:00:00 13:00:00 [facility] 2021-10-30 2021-10-30 [facility] [id number] Univers 13:00:00 13:00:00 [facility] 2021-10-30 2021-10-30 [facility] [id number] Univers 13:00:00 13:00:00 [facility] 2021-10-30 2021-10-30 [facility] [id number] Univers 13:00:00 13:00:00 [facility] 2021-10-30 2021-10-30 Orders Doctor PEREZ 1.2.840.114 [id number] Univers 00:00:00 00:00:00 Only Unassigned, JP 350.1.13.10 ity of [place] [facility] 4.2.7.2.686 [place] as [id number] [facility] 009 [place] 2021-10-30 2021-10-30 Orders Doctor 1.2.840.3 [id number] 444 Univers 00:00:00 00:00:00 Only Unassigned, 58111.1.1 ity of [place] 3.104.2.7 [place] .3.084907 Medica l 8 [place] 2021-10-30 2021-10-30 Travel 1.2.840.1 1.2.098.546 4072 1350 Univers 00:00:00 00:00:00 98619.1.1 350.1.13.10 ity of 3.104.2.7 4.2.7.3.698 [place] .3.166681 084.8 Medica l .8 [place] 2021-10-30 2021-10-30 Orders Doctor 1.2.840.2 [id number] 444 Univers 00:00:00 00:00:00 Only Unassigned, 96529.1.1 ity of [place] 3.104.2.7 [place] .3.495822 Medica l .8 [place] 2021-10-30 2021-10-30 Travel 1.2.840.1 1.2.766.925 8398 1350 Univers 00:00:00 00:00:00 67443.1.1 350.1.13.10 ity of 3.104.2.7 4.2.7.3.698 [place] .3.681769 084.8 Medica l .8 [place] 2021-10-30 2021-10-30 Orders Doctor 1.2.840.8 [id number] 444 Univers 00:00:00 00:00:00 Only Unassigned, 30739.1.1 ity of [place] 3.104.2.7 [place] .3.132507 Medica l .8 [place] 2021-10-30 2021-10-30 Travel 1.2.840.1 1.2.148.968 1815 1350 Univers 00:00:00 00:00:00 09246.1.1 350.1.13.10 ity of 3.104.2.7 4.2.7.3.698 [place] .3.126840 084.8 Medica l .8 [place] 2021-10-30 2021-10-30 Orders Doctor 1.2.840.8 [id number] 444 Univers 00:00:00 00:00:00 Only Unassigned, 78704.1.1 ity of [place] 3.104.2.7 [place] .3.898344 Medica l .8 [place] 2021-10-30 2021-10-30 Travel 1.2.840.1 1.2.498.896 8630 1350 Univers 00:00:00 00:00:00 39653.1.1 350.1.13.10 ity of 3.104.2.7 4.2.7.3.698 [place] .3.009428 084.8 Medica l .8 [place] 2021-10-30 2021-10-30 Orders Doctor 1.2.840.7 [id number] 444 Univers 00:00:00 00:00:00 Only Unassigned, 02045.1.1 ity of [place] 3.104.2.7 [place] .3.298952 Medica l .8 [place] 2021-10-30 2021-10-30 Travel 1.2.840.1 1.2.755.859 1343 1350 Univers 00:00:00 00:00:00 39810.1.1 350.1.13.10 ity of 3.104.2.7 4.2.7.3.698 [place] .3.294957 084.8 Medica l .8 [place] 2021-10-23 2021-10-23 Refill Jones, [facility] 1.2.840.114 [id number] Univers 00:00:00 00:00:00 Wentong HEALTH 350.1.13.10 it y of [place] 4.2.7.2.686 [place] as ROBERTA?BLEA [phone] Va femi BOSWELL [address] [place] MEDICAL OFFICE BUILDING 2021-10-23 2021-10-23 Refill Omole, [facility] 1.2.840.114 [id number] Univers 00:00:00 00:00:00 Nima HEALTH 350.1.13.10 it y [place]2.[place].2.[place] MER[place] [phone] [facility] [address] OFFICE BUILDING 2021-10-23 2021-10-23 Refill Jones, 1.2.840.4 [id number] 710 Univers 00:00:00 00:00:00 Wentong 95990.1.1 ity of 3.104.2.7 [place] .3.203007 Medica l .8 [place] 2021-10-23 2021-10-23 Refill Omole, 1.2.840.0 [id number] 709 Univers 00:00:00 00:00:00 Nima 49210.1.1 ity of [place] 3.104.2.7 [place] .3.275344 Medica l .8 [place] 2021-10-23 2021-10-23 Refill Jones, 1.2.840.8 [id number] [id number] 710 Univers 00:00:00 00:00:00 Wentong 46869.1.1 ity of 3.104.2.7 [place] .3.288004 Medica l .8 [place] 2021-10-23 2021-10-23 Refill Omole, 1.2.840.2 [id number] 709 Univers 00:00:00 00:00:00 Nima 18089.1.1 ity of [place] 3.104.2.7 [place] .3.797047 Medica l .8 [place] 2021-10-23 2021-10-23 Refill Jones, 1.2.840.1 [id number] 710 Univers 00:00:00 00:00:00 Wentong 07416.1.1 ity of 3.104.2.7 [place] .3.173014 Medica l .8 [place] 2021-10-23 2021-10-23 Refill Omole, 1.2.840.6 [id number] 709 Univers 00:00:00 00:00:00 Nima 09780.1.1 ity of [place] 3.104.2.7 [place] .3.478762 Medica l .8 [place] 2021-10-23 2021-10-23 Refill Jones, 1.2.840.2 [id number] 710 Univers 00:00:00 00:00:00 Wentong 51233.1.1 ity of 3.104.2.7 [place] .3.151803 Medica l .8 [place] 2021-10-23 2021-10-23 Refill Omole, 1.2.840.1 [id number] 709 Univers 00:00:00 00:00:00 Nima 72202.1.1 ity of [place] 3.104.2.7 [place] .3.221973 Medica l .8 [place] 2021-10-22 2021-10-22 Refill Brown, [facility] 1.2.840.114 [id number] Univers 00:00:00 00:00:00 Urszula HEALTH 350.1.13.10 it y of [place] 4.2.7.2.686 [place] as ROBERTA?BLEA [phone] Va dical KNEY [address] [place] MEDICAL OFFICE BUILDING 2021-10-22 2021-10-22 Refill [place] 1.2.840.114 [id number] Univers 00:00:00 00:00:00 Qiangjuan [place] 350.1.13.10 ity of [place] 4.2.7.2.686 [place] PROFESS[place] [phone] Va dical NAL 059 [facility] 2021-10-22 2021-10-22 Refill [place], [place] 1.2.840.114 [id number] Univers 00:00:00 00:00:00 Nima HEALTH 350.1.13.10 it y of [place] 4[place]2.7.2.686 [place] MER[place] [phone] [facility] [address] OFFICE BUILDING 2021-10-22 2021-10-22 Refill Brown, 1.2.840.1 [id number] 952 Univers 00:00:00 00:00:00 Urszula 05302.1.1 ity of 3.104.2.7 [place] .3.943013 Medica l .8 [place] 2021-10-22 2021-10-22 Refill Parish, 1.2.840.8 [id number] [id number] 938 Univers 00:00:00 00:00:00 Qiangjun 57996.1.1 ity of 3.104.2.7 [place] .3.835367 Medica l .8 [place] 2021-10-22 2021-10-22 Refill Omole, 1.2.840.2 [id number] 928 Univers 00:00:00 00:00:00 Nima 74203.1.1 ity of [place] 3.104.2.7 [place] .3.987352 Medica l .8 [place] 2021-10-22 2021-10-22 Refill Brown, 1.2.840.0 [id number] 952 Univers 00:00:00 00:00:00 Urszula 43268.1.1 ity of 3.104.2.7 [place] .3.873242 Medica l .8 [place] 2021-10-22 2021-10-22 Refill Parish, 1.2.840.6 [id number] 75786 938 Univers 00:00:00 00:00:00 Qiangjun 57562.1.1 ity of 3.104.2.7 [place] .3.159559 Medica l .8 [place] 2021-10-22 2021-10-22 Refill Omole, 1.2.840.5 [id number] 928 Univers 00:00:00 00:00:00 Nima 41930.1.1 ity of [place] 3.104.2.7 [place] .3.006507 Medica l .8 [place] 2021-10-22 2021-10-22 Refill Brown, 1.2.840.5 [id number] 952 Univers 00:00:00 00:00:00 Urszula 27303.1.1 ity of 3.104.2.7 [place] .3.161859 Medica l .8 [place] 2021-10-22 2021-10-22 Refill Parish, 1.2.840.9 [id number] 938 Univers 00:00:00 00:00:00 Qiangjun 11440.1.1 ity of 3.104.2.7 [place] .3.912644 Medica l .8 [place] 2021-10-22 2021-10-22 Refill Omole, 1.2.840.9 [id number] 928 Univers 00:00:00 00:00:00 Nima 42200.1.1 ity of [place] 3.104.2.7 [place] .3.558563 Medica l .8 [place] 2021-10-22 2021-10-22 Refill Brown, 1.2.840.9 [id number] 82343 952 Univers 00:00:00 00:00:00 Urszula 34939.1.1 ity of 3.104.2.7 [place] .3.770454 Medica l .8 [place] 2021-10-22 2021-10-22 Refill Parish, 1.2.840.4 [id number] 87023 938 Univers 00:00:00 00:00:00 Qiangjun 15098.1.1 ity of 3.104.2.7 [place] .3.261299 Medica l .8 [place] 2021-10-22 2021-10-22 Refill Omole, 1.2.840.5 [id number] 928 Univers 00:00:00 00:00:00 Nima 13903.1.1 ity of [place] 3.104.2.7 [place] .3.425023 Medica l .8 [place] 2021-10-16 2021-10-16 Outpatient R LUPE [facility] 1039 [id number] Univers 15:00:00 15:43:15 CECILIO ity of [facility] 2021-10-16 2021-10-16 Office Lupe, 1.2.840.7 [id number] Univers 15:00:00 15:43:15 Visit Cecilio A 89591.1.1 ity of 3.104.2.7 [place] .3.893100 Medica l .8 [place] 2021-10-16 2021-10-16 Outpatient R LUPE [facility] 1039 [id number] Univers 15:00:00 15:43:15 CECILIO ity of [facility] 2021-10-16 2021-10-16 Office Lupe, 1.2.840.6 [id number] 92 [id number] Univers 15:00:00 15:43:15 Visit Cecilio A 84955.1.1 ity of 3.104.2.7 [place] .3.982306 Medica l .8 [place] 2021-10-16 2021-10-16 [facility] 1039 [id number] Univers 15:00:00 15:43:15 CECILIO ity of [facility] 2021-10-16 2021-10-16 Office LupeHong2.840.2 [id number] 92 [id number] Univers 15:00:00 15:43:15 Visit Cecilio Payne 80362.1.1 ity of 3.104.2.7 [place] .3.619764 Medica l .8 [place] 2021-10-16 2021-10-16 Outpatient R LUPE [facility] 1039 [id number] Univers 15:00:00 15:43:15 CECILIO anjali of [facility] 2021-10-16 2021-10-16 Orders Doctor FEI 1.2.840.114 [id number] Univers 00:00:00 00:00:00 Only Unassigned, JP 350.1.13.10 ity of [place] [facility] 4.2.7.2.686 [place] as [phone] [address] 2021-10-16 2021-10-16 Orders Doctor 1.2.840.6 [id number] 713 Univers 00:00:00 00:00:00 Only Unassigned, 40158.1.1 ity of [place] 3.104.2.7 [place] .3.496735 Medica l .8 [place] 2021-10-16 2021-10-16 Orders Doctor 1.2.840.8 [id number] 713 Univers 00:00:00 00:00:00 Only Unassigned, 96002.1.1 ity of [place] 3.104.2.7 [place] .3.604616 Medica l .8 [place] 2021-10-16 2021-10-16 Orders Doctor 1.2.840.6 [id number] 27522 713 Univers 00:00:00 00:00:00 Only Unassigned, 83007.1.1 ity of [place] 3.104.2.7 [place] .3.770634 Medica l .8 [place] 2021-10-16 2021-10-16 Orders Doctor 1.2.840.3 [id number] 28477 713 Univers 00:00:00 00:00:00 Only Unassigned, 40573.1.1 ity of [place] 3.104.2.7 [place] .3.046836 Medica l .8 [place] 2021-10-04 2021-10-04 Outpatient KIESHA CONTI [facility] 294 [id number] Univers 13:30:00 13:57:09 ity of [facility] 2021-10-04 2021-10-04 Outpatient R KIESHA KILGORE [facility] 052 [id number] Univers 13:30:00 13:57:09 ity of [facility] 2021-10-04 2021-10-04 Outpatient R KIESHA KILGORE [facility] 609 [id number] Univers 13:30:00 13:30:00 ity of [facility] 2021-10-04 2021-10-04 Travel 1.2.840.1 1.2.087.715 8605 3398 Univers 00:00:00 00:00:00 90209.1.1 350.1.13.10 ity of 3.104.2.7 4.2.7.3.698 [place] .3.112310 084.8 Medica l .8 [place] 2021-10-04 2021-10-04 Travel 1.2.840.1 1.2.346.193 1578 3398 Univers 00:00:00 00:00:00 50857.1.1 350.1.13.10 ity of 3.104.2.7 4.2.7.3.698 [place] .3.471485 084.8 Medica l .8 [place] 2021-10-04 2021-10-04 Travel 1.2.840.1 1.2.281.059 9243 3398 Univers 00:00:00 00:00:00 86479.1.1 350.1.13.10 ity of 3.104.2.7 4.2.7.3.698 [place] .3.338833 084.8 Medica l .8 [place] 2021-10-04 2021-10-04 Travel 1.2.840.1 1.2.606.137 4106 3398 Univers 00:00:00 00:00:00 72250.1.1 350.1.13.10 ity of 3.104.2.7 4.2.7.3.698 [place] .3.563771 084.8 Medica l .8 [place] 2021-10-04 2021-10-04 Travel 1.2.840.1 1.2.970.482 9695 3398 Univers 00:00:00 00:00:00 35120.1.1 350.1.13.10 ity of 3.104.2.7 4.2.7.3.698 [place] .3.424165 084.8 Medica l .8 [place] 2021-10-02 2021-10-02 Outpatient R HERRERA, [facility] [id number] Univers 13:00:00 13:36:[address] [facility] 2021-10-02 2021-10-02 Outpatient R HERRERA, [facility] [id number] Univers 13:00:00 13:36:[address] [facility] 2021-10-02 2021-10-02 Outpatient R HERRERA, [facility] [id number] Univers 13:00:00 13:00:00 [facility] 2021-10-02 2021-10-02 Patient Leopoldo, 1.2.840.8 [id number] [id number] Univers 00:00:00 00:00:00 Secure Msg Sherri 06745.1.1 i ty of 3.104.2.7 [place] .3.192936 Medica l .[address] [place] [address] 2021-10-02 2021-10-02 Patient Aye, 1.2.840.8 [id number] [id number] Univers 00:00:00 00:00:00 Secure Msg Tejo 05949.1.1 i ty of 3.104.2.7 [place] .3.871958 Medica l .8 [place] 2021-10-02 2021-10-02 Patient Leopoldo, 1.2.840.3 [id number] [id number] Univers 00:00:00 00:00:00 Secure Msg Sherri 14109.1.1 i ty of 3.104.2.7 [place] .3.611813 Medica l .8 [place] 2021-10-02 2021-10-02 Patient Aye, 1.2.840.6 [id number] 926 39144 Univers 00:00:00 00:00:00 Secure Msg Tejo 53614.1.1 i ty of 3.104.2.7 [place] .3.592617 Medica l .8 [place] 2021-10-02 2021-10-02 Patient Leopoldo, 1.2.840.7 [id number] [id number] Univers 00:00:00 00:00:00 Secure Msg Sherri 46505.1.1 i ty of 3.104.2.7 [place] .3.721829 Medica l .8 [place] 2021-10-02 2021-10-02 Patient Aye, 1.2.840.0 [id number] [id number] Univers 00:00:00 00:00:00 Secure Msg Tejo 98561.1.1 i ty of 3.104.2.7 [place] .3.337097 Medica l .8 [place] 2021-10-02 2021-10-02 Patient Leopoldo, 1.2.840.2 [id number] 926 [id number] Univers 00:00:00 00:00:00 Secure Msg Sherri 23694.1.1 i ty of 3.104.2.7 [place] .3.583457 Medica l .8 [place] 2021-10-02 2021-10-02 Patient Aye, 1.2.840.0 [id number] 72357 Univers 00:00:00 00:00:00 Secure Msg Tejo 94989.1.1 i ty of 3.104.2.7 [place] .3.905093 Medica l .8 [place] 2021-09-20 2021-09-20 Outpatient Toan FLORIAN [facility] [id number] Univers 15:00:00 15:00:00 RENATE alba of [facility] 2021-09-20 2021-09-20 Outpatient Toan FLORIAN [facility] [id number] Univers 15:00:00 15:00:00 RENATE ity of [facility] 2021-09-20 2021-09-20 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 Renate Florian 1.2.840.7 [id number] Univers 15:00:00 15:00:00 Visit Draw, [facility] 80963.1.1 ity of 3.104.2.7 [place] .3.618866 Medica l .8 [place] 2021-09-20 2021-09-20 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 [employer] Renate Florian 1.2.840.0 [id number] Univers 15:00:00 15:00:00 Visit Draw, [facility] 76895.1.1 ity of 3.104.2.7 [place] .3.750876 Medica l .8 [place] 2021-09-20 2021-09-20 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 [employer] Renate Florian 1.2.840.5 [id number] Univers 15:00:00 15:00:00 Visit Draw, [facility] 98772.1.1 ity of 3.104.2.7 [place] .3.429182 Medica l .8 [place] 2021-09-20 2021-09-20 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 [employer] Renate Florian 1.2.840.4 [id number] Univers 15:00:00 15:00:00 Visit Draw, [facility] 98667.1.1 ity of 3.104.2.7 [place] .3.196505 Medica l .8 [place] 2021-09-20 2021-09-20 Outpatient R [facility] [id number] Univers 14:20:00 14:20:00 ity of [facility] 2021-09-20 2021-09-20 Office Robbin Griffiths 1.2.840.1 [id number] Univers 14:20:00 14:20:00 Visit Renate Florian 46119.1.1 ity of 3.104.2.7 [place] .3.475492 Medica l .8 [place] 2021-09-20 2021-09-20 Office Robbin Griffiths 1.2.840.1 [id number] Univers 14:20:00 14:20:00 Visit Renate Florian 23836.1.1 ity of 3.104.2.7 [place] .3.520772 Medica l .8 [place] 2021-09-20 2021-09-20 Office Aye Robbin 1.2.840.1 [id number] Univers 14:20:00 14:20:00 Visit Renate Florian 82167.1.1 ity of 3.104.2.7 [place] .3.605192 Medica l .8 [place] 2021-09-20 2021-09-20 Office AyeRobbin 1.2.840.1 [id number] Univers 14:20:00 14:20:00 Visit Renate Florian 99178.1.1 ity of 3.104.2.7 [place] .3.095484 Medica l .8 [place] 2021-09-20 2021-09-20 Nurse 2, Adc Infusion Chair [facility] 1.2. 840.114 [id number] Univers 08:00:00 12:00:00 Visit Robbin Griffiths [place] 350.1.13.10 ity of [place] 4.2.7.2.686 [place] SUR[place]ICAL [id number] [facility] 053 [place] 2021-09-20 2021-09-20 Nurse Robbin Griffiths 1.2.840.1 [id number] Univers 08:00:00 12:00:00 Visit 2, Adc Infusion Chair 79941.1.1 ity of 3.104.2.7 [place] .3.067246 Medica l .8 Branch 2021-09-20 2021-09-20 Nurse Robbin Griffiths 1.2.840.1 [id number] Univers 08:00:00 12:00:00 Visit 2, Adc Infusion Chair 67681.1.1 ity of 3.104.2.7 [place] .3.796319 Medica l .8 [place] 2021-09-20 2021-09-20 Nurse Aye Tejo 1.2.840.1 [id number] Univers 08:00:00 12:00:00 Visit 2, Adc Infusion Chair 89197.1.1 ity of 3.104.2.7 [place] .3.776969 Medica l .8 [place] 2021-09-20 2021-09-20 Nurse Allyson Griffithsjo 1.2.840.1 [id number] Univers 08:00:00 12:00:00 Visit 2, Adc Infusion Chair 82268.1.1 ity of 3.104.2.7 [place] .3.304120 Medica l .8 [place] 2021-09-20 2021-09-20 Outpatient R AYE [facility] [id number] Univers 08:00:00 08:00:00 TEJO ity of [facility] 2021-09-20 2021-09-20 Outpatient R AYE [facility] [id number] Univers 08:00:00 08:00:00 TEJO ity of [facility] 2021-09-20 2021-09-20 Orders Doctor 1.2.840.0 [id number] Univers 00:00:00 00:00:00 Only Unassigned, 51921.1.1 ity of [place] 3.104.2.7 [place] .3.005957 Medica l .8 [place] 2021-09-20 2021-09-20 Travel 1.2.840.1 1.2.661.986 8117 0364 Univers 00:00:00 00:00:00 55444.1.1 350.1.13.10 ity of 3.104.2.7 4.2.7.3.698 [place] .3.713022 084.8 Medica l .8 [place] 2021-09-20 2021-09-20 Orders Doctor 1.2.840.1 [id number] 671 Univers 00:00:00 00:00:00 Only Unassigned, 81617.1.1 ity of [place] 3.104.2.7 [place] .3.417797 Medica l .8 [place] 2021-09-20 2021-09-20 Travel 1.2.840.1 1.2.672.659 2278 0364 Univers 00:00:00 00:00:00 31564.1.1 350.1.13.10 ity of 3.104.2.7 4.2.7.3.698 [place] .3.021280 084.8 Medica l .8 [place] 2021-09-20 2021-09-20 Orders Doctor 1.2.840.7 [id number] 671 Univers 00:00:00 00:00:00 Only Unassigned, 74522.1.1 ity of [place] 3.104.2.7 [place] .3.126035 Medica l .8 [place] 2021-09-20 2021-09-20 Travel 1.2.840.1 1.2.022.897 9473 0364 [facility] 00:00:00 00:00:00 29873.1.1 350.1.13.10 ity of 3.104.2.7 4.2.7.3.698 [place] .3.180385 084.8 Medica l .8 [place] 2021-09-20 2021-09-20 Orders Doctor 1.2.840.5 [id number] 671 Univers 00:00:00 00:00:00 Only Unassigned, 30796.1.1 ity of [place] 3.104.2.7 [place] .3.098713 Medica l .8 [place] 2021-09-20 2021-09-20 Travel 1.2.840.1 1.2.196.514 4467 0364 Univers 00:00:00 00:00:00 49335.1.1 350.1.13.10 ity of 3.104.2.7 4.2.7.3.698 [place] .3.980223 084.8 Medica l .8 [place] 2021-09-17 2021-09-17 Patient Doctor 1.2.840.7 [id number] 052 Univers 00:00:00 00:00:00 Secure Msg Unassigned, 21163.1.1 ity of [place] 3.104.2.7 [place] .3.728027 Medica l .8 [place] 2021-09-17 2021-09-17 Patient Doctor 1.2.840.0 [id number] 052 Univers 00:00:00 00:00:00 Secure Msg Unassigned, 08576.1.1 ity of [place] 3.104.2.7 [place] .3.417878 Medica l .8 [place] 2021-09-17 2021-09-17 Patient Doctor 1.2.840.7 [id number] 052 Univers 00:00:00 00:00:00 Secure Msg Unassigned, 85348.1.1 ity of [place] 3.104.2.7 [place] .3.298585 Medica l .8 [place] 2021-09-17 2021-09-17 Patient Doctor 1.2.840.4 [id number] 052 Univers 00:00:00 00:00:00 Secure Msg Unassigned, 70791.1.1 ity of [place] 3.104.2.7 [place] .3.993066 Medica l .8 [place] 2021-09-17 2021-09-17 Patient Doctor 1.2.840.7 [id number] 052 Univers 00:00:00 00:00:00 Secure Msg Unassigned, 39070.1.1 ity of [place] 3.104.2.7 [place] .3.658383 Medica l .8 [place] 2021-09-12 2021-09-12 Telephone FLAKITO Adkins 1.2.840.114 [id number] [id number] Univers 00:00:00 00:00:00 [facility] 350.1.13.10 it y of [place] 4.2.7.2.686 [facility] [phone] [facility] [address] OFFICE BUILDING 2021-09-12 2021-09-12 Telephone Sindy, 1.2.840.2 [id number] Univers 00:00:00 00:00:00 [facility] 24998.1.1 ity of [place] 3.104.2.7 [place] .3.740024 Medica l .8 [place] 2021-09-12 2021-09-12 Telephone Khalife, 1.2.840.5 [id number] Univers 00:00:00 00:00:00 Wissam 62183.1.1 ity of [place] 3.104.2.7 [place] .3.382810 Medica l .8 [place] 2021-09-12 2021-09-12 Telephone Khalife, 1.2.840.6 [id number] Univers 00:00:00 00:00:00 Wissam 88007.1.1 ity of [place] 3.104.2.7 [place] .3.613914 Medica l .8 [place] 2021-09-12 2021-09-12 Telephone Khalife, 1.2.840.0 [id number] Univers 00:00:00 00:00:00 Wissam 60660.1.1 ity of [place] 3.104.2.7 [place] .3.965555 Medica l .8 [place] 2021-09-12 2021-09-12 Telephone Khalife, 1.2.840.8 [id number] Univers 00:00:00 00:00:00 Wissam 49069.1.1 ity of [place] 3.104.2.7 [place] .3.346800 Medica l .8 [place] 2021-09-11 2021-09-11 [facility] [id number] Univers 00:00:00 23:59:00 RYDER ity of [facility] 2021-09-11 2021-09-11 [facility] KHOA 1.2.840.114 [id number] Univers 00:00:00 23:59:00 Encounter Ryder JP 350.1.13.10 ity of [facility] 4.2.7.2.686 [place] [id number] Medi marium 844 Branch 2021-09-11 2021-09-11 [facility], 1.2.840.1 [id number] Univers 00:00:00 23:59:00 Encounter Ryder 94436.1.1 it y of 3.104.2.7 [place] .3.631594 Medica l .8 Branch 2021-09-11 2021-09-11 [facility], 1.2.840.1 [id number] Univers 00:00:00 23:59:00 Encounter Ryder 91467.1.1 it y of 3.104.2.7 [place] .3.357772 Medica l .8 Branch 2021-09-11 2021-09-11 [facility], 1.2.840.3 [id number] Univers 00:00:00 23:59:00 Encounter Ryder 47417.1.1 it y of 3.104.2.7 [place] .3.392665 Medica l .8 Branch 2021-09-11 2021-09-11 Transition Deborde, ROWENA 1.2.840.114 [id number] Univers 00:00:00 00:00:00 of Care Angelique L GUERRA 350.1.13.10 i ty [place] [id number] [facility] 403 Branch 2021-09-11 2021-09-11 Transition Deborde, 1.2.840.6 [id number] Univers 00:00:00 00:00:00 of Care Angelique L 64602.1.1 ity of 3.104.2.7 [place] .3.011864 Medica l .8 Branch 2021-09-11 2021-09-11 Transition Deborde, 1.2.840.3 [id number] Univers 00:00:00 00:00:00 of Care Angelique L 38377.1.1 ity of 3.104.2.7 [place] .3.647301 Medica l .8 Branch 2021-09-11 2021-09-11 Transition Deborde, 1.2.840.9 [id number] Univers 00:00:00 00:00:00 of Care Angelique L 20896.1.1 ity of 3.104.2.7 [place] .3.404306 Medica l .8 Branch 2021-09-11 2021-09-11 Transition Deborde, 1.2.840.5 [id number] Univers 00:00:00 00:00:00 of Care Angelique L 09481.1.1 ity of 3.104.2.7 [place] .3.680574 Medica l .8 [place] 2021-09-11 2021-09-11 Transition Alvin, 1.2.840.6 [id number] Univers 00:00:00 00:00:00 of Care Angelique L 18091.1.1 ity of 3.104.2.7 [place] .3.712801 Medica l .8 [place] 2021-09-10 2021-09-10 Patient Doctor 1.2.840.1 [id number] Univers 00:00:00 00:00:00 Secure Msg Unassigned, 82599.1.1 ity of [place] 3.104.2.7 [place] .3.756766 Medica l .8 [place] 2021-09-10 2021-09-10 Patient Doctor 1.2.840.3 [id number] Univers 00:00:00 00:00:00 Secure Msg Unassigned, 09570.1.1 ity of [place] 3.104.2.7 [place] .3.160109 Medica l .8 [place] 2021-09-10 2021-09-10 Patient Doctor 1.2.840.5 [id number] Univers 00:00:00 00:00:00 Secure Msg Unassigned, 53468.1.1 ity of [place] 3.104.2.7 [place] .3.401308 Medica l .8 [place] 2021-09-10 2021-09-10 Patient Doctor 1.2.840.1 [id number] Univers 00:00:00 00:00:00 Secure Msg Unassigned, 53603.1.1 ity of [place] 3.104.2.7 [place] .3.107087 Medica l .8 [place] 2021-09-10 2021-09-10 Patient Doctor 1.2.840.5 [id number] Univers 00:00:00 00:00:00 Secure Msg Unassigned, 97557.1.1 ity of [place] 3.104.2.7 [place] .3.912285 Medica l .8 Branch 2021-09-08 2021-09-09 Outpatient X KERRI [facility] KIMBER [id number] Univers 18:30:00 17:00:[address] [facility] 2021-09-08 2021-09-09 Emergency Kurt Natarajan S [facility] 1.2.840 .114 [id number] Univers 18:30:00 17:00:00 Yifan Romero [place] 350.1.13.10 ity of [place] 4.2.7.2.686 [facility] [id number] [facility] 081 Branch 2021-09-08 2021-09-09 Emergency Kurt Natarajan S 1.2.840.1 [id number] Univers 18:30:00 17:00:00 EverettudaygamalNeginerin 43984.1.1 ity of 3.104.2.7 [place] .3.553029 Medica l .8 Branch 2021-09-08 2021-09-09 Outpatient X KERRI, [facility] KIMBER [id number] Univers 18:30:00 17:00:[address] [facility] 2021-09-08 2021-09-09 Emergency Kurt Natarajan S 1.2.840.1 [id number] Univers 18:30:00 17:00:00 Negin Romeroerin 13964.1.1 ity of 3.104.2.7 [place] .3.436094 Medica l .8 Branch 2021-09-08 2021-09-09 Outpatient X KERRI, [facility] KIMBER [id number] Univers 18:30:00 17:00:[address] [facility] 2021-09-08 2021-09-09 Outpatient X KERRI, [facility] KIMBER [id number] Univers 18:30:00 17:00:[address] [facility] 2021-09-08 2021-09-09 Emergency Kurt Natarajan S 1.2.840.1 [id number] Univers 18:30:00 17:00:00 Yifan Romero 42810.1.1 ity of 3.104.2.7 [place] .3.158024 Medica l .8 [place] 2021-09-08 2021-09-09 Emergency Kurt Natarajan 1.2.840.1 [id number] [facility] 18:30:00 17:00:00 Yifan Romero 37483.1.1 ity of 3.104.2.7 [place] .3.892574 Medica l .8 [place] 2021-09-08 2021-09-09 Emergency Kurt Natarajan 1.2.840.1 [id number] [facility] 18:30:00 17:00:00 Yifan Romero 21340.1.1 ity of 3.104.2.7 [place] .3.989836 Medica l .8 [place] 2021-09-08 2021-09-08 Travel 1.2.840.1 1.2.702.014 0488 7809 [facility] 00:00:00 00:00:00 61076.1.1 350.1.13.10 ity of 3.104.2.[place].3.698 [place] .3.053[place] 084.8 Med[place] .8 [place] 2021-09-08 2021-09-08 Travel 1.2.840.1 1.2.783.389 3489 7809 [facility] 00:00:00 00:00:00 98400.1.1 350.1.13.10 ity of 3.104.2.[place].3.698 [place] .3.355149 084.8 Med[place] l .8 [place] 2021-09-08 2021-09-08 Travel 1.2.840.1 1.2.969.807 1264 7809 [facility] 00:00:00 00:00:00 86315.1.1 350.1.13.10 ity of 3.104.2.7 4.[place].3.698 [place] .3.638622 084.8 Medica l .8 [place] 2021-09-08 2021-09-08 Travel 1.2.840.1 1.2.840.973 2981 7809 [facility] 00:00:00 00:00:00 62087.1.1 350.1.13.10 ity of 3.104.2.[place].3.698 [place] .3.834690 084.8 Med[place] l .8 [place] 2021-09-07 2021-09-07 Outpatient R AYO, [facility] [id number] Univers 19:00:00 19:01:32 STACI ity of [facility] 2021-09-07 2021-09-07 Urgent Song, 1.2.840.4 [id number] Univers 19:00:00 19:01:32 Care Staci 20822.1.1 ity of 3.104.2.7 [place] .3.306490 Medica l .8 [place] 2021-09-07 2021-09-07 Urgent Song, 1.2.840.1 [id number] 312 Univers 19:00:00 19:01:32 Care Staci 94563.1.1 ity of 3.104.2.7 [place] .3.060696 Medica l .8 [place] 2021-09-07 2021-09-07 Urgent Song, 1.2.840.1 [id number] 312 Univers 19:00:00 19:01:32 Care Staci 08153.1.1 ity of 3.104.2.7 [place] .3.826294 Medica l .8 [place] 2021-09-07 2021-09-07 Urgent Song, 1.2.840.1 [id number] 312 Univers 19:00:00 19:01:32 Care Staci 10736.1.1 ity of 3.104.2.7 [place] .3.178038 Medica l .8 [facility] 2021-09-07 2021-09-07 Travel 1.2.840.1 1.2.914.294 1986 2592 Univers 00:00:00 00:00:00 45563.1.1 350.1.13.10 ity of 3.104.2.7 [place].3.698 [place] .3.227363 084.8 Med[place] l .8 [place] 2021-09-07 2021-09-07 Travel 1.2.840.1 1.2.809.093 0907 2592 [facility] 00:00:00 00:00:00 95612.1.1 350.1.13.10 ity of 3.104.2.7 4.[place]7.3.698 [place] .3.775184 084.8 Med[place] l .8 [place] 2021-09-07 2021-09-07 Travel 1.2.840.1 1.2.310.422 5492 2592 Univers 00:00:00 00:00:00 72652.1.1 350.1.13.10 ity of 3.104.2.7 4.[place]7.3.698 [place] .3.429149 084.8 Med[place] l .8 [place] 2021-09-07 2021-09-07 Travel 1.2.840.1 1.2.889.119 6282 2592 Univers 00:00:00 00:00:00 49631.1.1 350.1.13.10 ity of 3.104.2.7 [place]7.3.698 [place] .3.224380 084.8 Med[place] l .8 [place] 2021-09-06 2021-09-06 Linda Mina, [facility]ERS[facility] 1.2.840.114 [id number] Univers 00:00:00 00:00:00 Sherri [facility] 350.1.13.10 i ty of [place] [id number] [facility] marium 053 [place] 2021-09-06 2021-09-06 Linda Mina, 1.2.840.6 [id number] 920 [id number] Univers 00:00:00 00:00:00 Sherri 69918.1.1 ity of 3.104.2.7 [place] .3.788274 Medica l .8 [place] 2021-09-06 2021-09-06 Refill Mina, 1.2.840.6 [id number] 920 [id number] Univers 00:00:00 00:00:00 Sherri 58449.1.1 ity of 3.104.2.7 [place] .3.699168 Medica l .8 [facility] 2021-09-06 2021-09-06 Refill Mina, 1.2.840.1 [id number] 920 [id number] Univers 00:00:00 00:00:00 Sherri 71857.1.1 ity of 3.104.2.7 [place] .3.433721 Medica l .8 [place] 2021-09-06 2021-09-06 Refill Mina, 1.2.840.1 [id number] 920 [id number] Univers 00:00:00 00:00:00 Sherri 95121.1.1 ity of 3.104.2.7 [place] .3.573524 Medica l .8 [place] 2021-09-05 2021-09-05 Refill Mina, 1.2.840.9 [id number] 920 [id number] Univers 00:00:00 00:00:00 Sherri 34328.1.1 ity of 3.104.2.7 [place] .3.537306 Medica l .8 [facility] 2021-09-05 2021-09-05 Refill Mina, 1.2.840.5 [id number] 920 24746 Univers 00:00:00 00:00:00 Sherri 43778.1.1 ity of 3.104.2.7 [place] .3.700890 Medica l .8 [place] 2021-09-05 2021-09-05 Refill Mina, 1.2.840.5 [id number] 920 35634 Univers 00:00:00 00:00:00 Sherri 29164.1.1 ity of 3.104.2.7 [place] .3.341103 Medica l .8 [facility] 2021-09-05 2021-09-05 Refill Mina, 1.2.840.8 [id number] 920 11240 Univers 00:00:00 00:00:00 Sherri 11917.1.1 ity of 3.104.2.7 [place] .3.905902 Medica l .8 [place] 2021-09-04 2021-09-04 [facility] 1.2.840.114 [id number] Univers 16:00:00 16:20:00 ne Visit Cecilio Payne CHRISSY 350.1.13.10 ity of [place] 4.2.7.2.686 [place] HERNANDEZ[place] 145.9061401 Va dical NAL 231 [facility] 2021-09-04 2021-09-04 Telemedici Andrade, 1.2.840.1 [id number] Univers 16:00:00 16:20:00 ne Visit Cecilio Payne 26377.1.1 ity of 3.104.2.7 [place] .3.000929 Medica l .8 [place] 2021-09-04 2021-09-04 [facility], 1.2.840.0 [id number] Univers 16:00:00 16:20:00 ne Visit Cecilio Payne 41772.1.1 ity of 3.104.2.7 [place] .3.012999 Medica l .8 [place] 2021-09-04 2021-09-04 Telemedici Andrade, 1.2.840.8 [id number] Univers 16:00:00 16:20:00 ne Visit Cecilio Payne 75531.1.1 ity of 3.104.2.7 [place] .3.450280 Medica l .8 [place] 2021-09-04 2021-09-04 Telemedici Andrade, 1.2.840.1 [id number] Univers 16:00:00 16:20:00 ne Visit Cecilio Payne 37405.1.1 ity of 3.104.2.7 [place] .3.419783 Medica l .8 [place] 2021-09-04 2021-09-04 Ochoa R LUPE [facility] [id number] Univers 16:00:00 16:00:[address] [facility] 2021-09-04 2021-09-04 Outpatient R LUPE [facility] [id number] [id number] Univers 16:00:00 16:00:[address] [facility] 2021-09-04 2021-09-04 Outpatient R LUPE [facility] [id number] [id number] Univers 16:00:00 16:00:[address] [facility] 2021-09-04 2021-09-04 Outpatient R LUPE [facility] [id number] [id number] Univers 16:00:00 16:00:[address] [facility] 2021-09-04 2021-09-04 Outpatient R JAVIER [facility] [id number] Univers 13:00:00 13:45:16 FLORENCE [facility] 2021-08-28 2021-08-28 Outpatient R JERRY [facility] [id number] Univers 10:00:00 10:29:[address] [facility] 2021-08-28 2021-08-28 Office Jerry, 1.2.840.7 [id number] Univers 10:00:00 10:29:18 Visit Urszula 43810.1.1 ity of 3.104.2.7 [place] .3.312657 Medica l .8 [place] 2021-08-28 2021-08-28 Outpatient R JERRY [facility] [id number] Univers 10:00:00 10:29:[address] [facility] 2021-08-28 2021-08-28 Office Jerry, 1.2.840.5 [id number] Univers 10:00:00 10:29:18 Visit Urszula 85785.1.1 ity of 3.104.2.7 [place] .3.671590 Medica l .8 [place] 2021-08-28 2021-08-28 Office Jeryr, 1.2.840.7 [id number] 721 Univers 10:00:00 10:29:18 Visit Urszula 86615.1.1 ity of 3.104.2.7 [place] .3.851941 Medica l .8 [place] 2021-08-28 2021-08-28 Office Jerry, 1.2.840.7 [id number] 721 Univers 10:00:00 10:29:18 Visit Urszula 92127.1.1 ity of 3.104.2.7 [place] .3.743596 Medica l .8 [place] 2021-08-28 2021-08-28 Office Jerry, 1.2.840.7 [id number] 721 Univers 10:00:00 10:29:18 Visit Urszula 13575.1.1 ity of 3.104.2.7 [place] .3.224921 Medica l .8 [place] 2021-08-28 2021-08-28 Outpatient R JERRY [facility] [id number] [facility] 10:00:00 10:00:00 URSZULA ity of [facility] 2021-08-28 2021-08-28 Travel 1.2.840.1 1.2.844.835 3677 3964 [facility] 00:00:00 00:00:00 10228.1.1 350.1.13.10 ity of 3.104.2.7 [place].3.698 [place] .3.837094 084.8 Medica l .8 [place] 2021-08-28 2021-08-28 Travel 1.2.840.1 1.2.436.957 5250 3964 Univers 00:00:00 00:00:00 30631.1.1 350.1.13.10 ity of 3.104.2.7 4.[place].7.3.698 [place] .3.370505 084.8 Medica l .8 [place] 2021-08-28 2021-08-28 Travel 1.2.840.1 1.2.978.276 6848 3964 Univers 00:00:00 00:00:00 34748.1.1 350.1.13.10 ity of 3.104.2.7 4.2.7.3.698 [place] .3.067150 084.8 Medica l .8 [place] 2021-08-28 2021-08-28 Orders Doctor FEI 1.2.840.114 [id number] Univers 00:00:00 00:00:00 Only Unassigned, JP 350.1.13.10 ity of [place] [facility] 4.2.7.2.686 [place] 187.2514953 Medi marium 009 [place] 2021-08-28 2021-08-28 Orders Doctor 1.2.840.5 [id number] Univers 00:00:00 00:00:00 Only Unassigned, 82056.1.1 ity of [place] 3.104.2.7 [place] .3.333477 Medica l .8 [place] 2021-08-28 2021-08-28 Travel 1.2.840.1 1.2.467.964 2301 3964 Univers 00:00:00 00:00:00 04913.1.1 350.1.13.10 ity of 3.104.2.7 4.2.7.3.698 [place] .3.779680 084.8 Medica l .8 [place] 2021-08-28 2021-08-28 Orders Doctor 1.2.840.2 [id number] 272 Univers 00:00:00 00:00:00 Only Unassigned, 41951.1.1 ity of [place] 3.104.2.7 [place] .3.968521 Medica l .8 [place] 2021-08-28 2021-08-28 Travel 1.2.840.1 1.2.925.733 9890 3964 Univers 00:00:00 00:00:00 07410.1.1 350.1.13.10 ity of 3.104.2.7 4.[place].7.3.698 [place] .3.528326 084.8 Medica l .8 [place] 2021-08-23 2021-08-23 Outpatient KIESHA CONTI [facility] [id number] Univers 15:00:00 15:46:03 ity of [facility] 2021-08-23 2021-08-23 Outpatient KIESHA CONTI [facility] [id number] [id number] Univers 15:00:00 15:00:00 ity of [facility] 2021-08-23 2021-08-23 Travel 1.2.840.[address] [place] [address] 00:00:00 00:00:00 62122.1.1 350.1.13.10 ity of 3.104.2.7 4.2.7.3.698 [place] .3.600332 084.8 Medica l .8 [place] 2021-08-23 2021-08-23 Travel 1.2.840.[address] [place] [address] 00:00:00 00:00:00 00769.1.1 350.1.13.10 ity of 3.104.2.7 4.2.7.3.698 [place] .3.357584 084.8 Medica l .8 [place] 2021-08-23 2021-08-23 Travel 1.2.840.[address] [place] [address] 00:00:00 00:00:00 31958.1.1 350.1.13.10 ity of 3.104.2.7 4.2.7.3.698 [place] .3.631280 084.8 Medica l .8 [place] 2021-08-23 2021-08-23 Travel 1.2.840.[address] [place] [address] 00:00:00 00:00:00 08103.1.1 350.1.13.10 ity of 3.104.2.7 4.2.7.3.698 [place] .3.612709 084.8 Medica l .8 [place] 2021-08-23 2021-08-23 Travel 1.2.840.[address] [place] [address] 00:00:00 00:00:00 53056.1.1 350.1.13.10 ity of 3.104.2.7 4.2.7.3.698 [place] .3.729256 084.8 Medica l .8 [place] 2021-08-212021-08-21 Refill Jones, 1.2.840.1 [id number] 154 Univers 00:00:00 00:00:00 Wentong 39915.1.1 ity of 3.104.2.7 [place] .3.560382 Medica l .8 [place] 2021-08-21 2021-08-21 Refill Andrade, 1.2.840.8 [id number] Univers 00:00:00 00:00:00 Cecilio A 41485.1.1 ity of 3.104.2.7 [place] .3.475862 Medica l .8 [place] 2021-08-21 2021-08-21 Refill Jones, 1.2.840.0 [id number] 74524 154 Univers 00:00:00 00:00:00 Wentong 09502.1.1 ity of 3.104.2.7 [place] .3.102727 Medica l .8 [place] 2021-08-21 2021-08-21 Refill Andrade, 1.2.840.3 [id number] 91 [id number] Univers 00:00:00 00:00:00 Cecilio A 12337.1.1 ity of 3.104.2.7 [place] .3.188080 Medica l .8 [place] 2021-08-21 2021-08-21 Refill Jones, 1.2.840.9 [id number] 11851 154 Univers 00:00:00 00:00:00 Wentong 38469.1.1 ity of 3.104.2.7 [place] .3.481399 Medica l .8 [place] 2021-08-21 2021-08-21 Refill Andrade, 1.2.840.9 [id number] 91 [id number] Univers 00:00:00 00:00:00 Cecilio A 15892.1.1 ity of 3.104.2.7 [place] .3.615550 Medica l .8 [place] 2021-08-21 2021-08-21 Refill Jones, 1.2.840.9 [id number] 154 Univers 00:00:00 00:00:00 Wentong 83963.1.1 ity of 3.104.2.7 [place] .3.728415 Medica l .8 [place] 2021-08-21 2021-08-21 Refill Andrade, 1.2.840.2 [id number] Univers 00:00:00 00:00:00 Cecilio A 57337.1.1 ity of 3.104.2.7 [place] .3.609069 Medica l .8 [place] 2021-08-21 2021-08-21 Refill Jones, 1.2.840.4 [id number] 154 Univers 00:00:00 00:00:00 Wentong 45648.1.1 ity of 3.104.2.7 [place] .3.303268 Medica l .8 [place] 2021-08-21 2021-08-21 Refill Andrade, 1.2.840.4 [id number] 91 [id number] Univers 00:00:00 00:00:00 Cecilio A 17864.1.1 ity of 3.104.2.7 [place] .3.532509 Medica l .8 [place] 2021-08-17 2021-08-17 Outpatient R JAVIER, [facility] [id number] Univers 14:00:00 14:00:00 [facility] 2021-08-17 2021-08-17 Outpatient R HERRERA, [facility] [id number] Univers 14:00:00 14:00:00 [facility] 2021-08-17 2021-08-17 Outpatient R HERRERA, [facility] [id number] Univers 14:00:00 14:00:00 [facility] 2021-08-17 2021-08-17 Outpatient R HERRERA, [facility] [id number] Univers 14:00:00 14:00:00 [facility] 2021-08-16 2021-08-16 Outpatient R AYE [facility] [id number] Univers 16:45:00 16:59:31 ROBBIN [facility] 2021-08-16 2021-08-16 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 Robbin Griffiths 1.2.840.2 [id number] Univers 16:45:00 16:59:31 Visit c-Lab 75727.1.1 ity of 3.104.2.7 [place] .3.032903 Medica l .8 [place] 2021-08-16 2021-08-16 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 Aye Tejo 1.2.840.6 [id number] Univers 16:45:00 16:59:31 Visit c-Lab 88681.1.1 ity of 3.104.2.7 [place] .3.153111 Medica l .8 [place] 2021-08-16 2021-08-16 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 [employer] Shenanazraphael Allysonnoemi 1.2.840.0 [id number] Univers 16:45:00 16:59:31 Visit c-Lab 53407.1.1 ity of 3.104.2.7 [place] .3.212757 Medica l .8 [place] 2021-08-16 2021-08-16 Outpatient R AYE, [facility] [id number] Univers 16:45:00 16:59:31 TEJO ity of [facility] 2021-08-16 2021-08-16 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 Aye Allysonnoemi 1.2.840.6 [id number] Univers 16:45:00 16:59:31 Visit c-Lab 20026.1.1 ity of 3.104.2.7 [place] .3.415562 Medica l .8 [place] 2021-08-16 2021-08-16 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 Aye Allysonnoemi 1.2.840.1 [id number] Univers 16:45:00 16:59:31 Visit c-Lab 60703.1.1 ity of 3.104.2.7 [place] .3.847655 Medica l .8 [place] 2021-08-16 2021-08-16 Office Aye 1.2.840.5 [id number] 913 [id number] Univers 15:20:00 16:45:47 Visit Tejo 34135.1.1 ity of 3.104.2.7 [place] .3.564266 Medica l .8 [place] 2021-08-16 2021-08-16 Outpatient R MUSUNNAZU, [facility] [id number] Univers 15:20:00 16:45:47 TEJO ity of [facility] 2021-08-16 2021-08-16 Outpatient R MUSUNNAZU, [facility] 24207 53076 Univers 15:20:00 16:45:47 TEJO ity of [facility] 2021-08-16 2021-08-16 Office Musunuru, 1.2.840.1 [id number] 913 [id number] Univers 15:20:00 16:45:47 Visit Tejo 83044.1.1 ity of 3.104.2.7 [place] .3.834404 Medica l .8 [place] 2021-08-16 2021-08-16 Office Musunuru, 1.2.840.9 [id number] 913 73259 Univers 15:20:00 16:45:47 Visit Tejo 13475.1.1 ity of 3.104.2.7 [place] .3.046031 Medica l .8 [place] 2021-08-16 2021-08-16 Office Musunuru, 1.2.840.8 [id number] 913 71999 Univers 15:20:00 16:45:47 Visit Tejo 84031.1.1 ity of 3.104.2.7 [place] .3.942120 Medica l .8 [place] 2021-08-16 2021-08-16 Office Musunuru, 1.2.840.3 [id number] 913 40057 Univers 15:20:00 16:45:47 Visit Tejo 89794.1.1 ity of 3.104.2.7 [place] .3.628763 Medica l .8 [place] 2021-08-16 2021-08-16 Travel 1.2.840.1 1.2.049.031 4828 5163 Univers 00:00:00 00:00:00 73343.1.1 350.1.13.10 ity of 3.104.2.7 4.2.7.3.698 [place] .3.422294 084.8 Medica l .8 [place] 2021-08-16 2021-08-16 Travel 1.2.840.[address] [place] [address] 00:00:00 00:00:00 06472.1.1 350.1.13.10 ity of 3.104.2.7 4.2.7.3.698 [place] .3.972718 084.8 Medica l .8 [place] 2021-08-16 2021-08-16 Travel 1.2.840.[address] [place] [address] 00:00:00 00:00:00 22769.1.1 350.1.13.10 ity of 3.104.2.7 4.2.7.3.698 [place] .3.017341 084.8 Medica l .8 [place] 2021-08-16 2021-08-16 Travel 1.2.840.[address] [place] [address] 00:00:00 00:00:00 25525.1.1 350.1.13.10 ity of 3.104.2.7 4.2.7.3.698 [place] .3.991438 084.8 Medica l .8 [place] 2021-08-16 2021-08-16 Travel 1.2.840.1 1.2.631.863 5399 5163 Univers 00:00:00 00:00:00 11714.1.1 350.1.13.10 ity of 3.104.2.7 4.2.7.3.698 [place] .3.953297 084.8 Medica l .8 [place] 2021-08-14 2021-08-14 Ochoa PATEL [facility] [id number] Univers 10:20:00 10:20:00 URSZULA ity of [facility] 2021-08-08 2021-08-08 Telephone Leopoldo 1.2.840.5 [id number] Univers 00:00:00 00:00:00 Sherri 06447.1.1 ity of 3.104.2.7 [place] .3.829869 Medica l .8 [place] 2021-08-08 2021-08-08 Refill Andrade, 1.2.840.3 [id number] 91 [id number] Univers 00:00:00 00:00:00 Cecilio A 07752.1.1 ity of 3.104.2.7 [place] .3.983221 Medica l .8 [place] 2021-08-08 2021-08-08 Refill Andrade, 1.2.840.1 [id number] Univers 00:00:00 00:00:00 Cecilio A 18759.1.1 ity of 3.104.2.7 [place] .3.224031 Medica l .8 [place] 2021-08-08 2021-08-08 Telephone Andrade, 1.2.840.1 [id number] Univers 00:00:00 00:00:00 Cecilio A 37972.1.1 ity of 3.104.2.7 [place] .3.852517 Medica l .8 [place] 2021-08-08 2021-08-08 Patient Doctor 1.2.840.7 [id number] Univers 00:00:00 00:00:00 Secure Msg Unassigned, 53575.1.1 ity of [place] 3.104.2.7 [place] .3.135499 Medica l .8 [place] 2021-08-08 2021-08-08 Patient Doctor 1.2.840.3 [id number] Univers 00:00:00 00:00:00 Secure Msg Unassigned, 02617.1.1 ity of [place] 3.104.2.7 [place] .3.305243 Medica l .8 [place] 2021-08-08 2021-08-08 Telephone Andrade, 1.2.840.3 [id number] Univers 00:00:00 00:00:00 Cecilio A 42919.1.1 ity of 3.104.2.7 [place] .3.564078 Medica l .8 [place] 2021-08-08 2021-08-08 Refill Andrade, 1.2.840.5 [id number] 91 [id number] Univers 00:00:00 00:00:00 Cecilio A 86958.1.1 ity of 3.104.2.7 [place] .3.007404 Medica l .8 [place] 2021-08-08 2021-08-08 Telephone Mina, 1.2.840.4 [id number] Univers 00:00:00 00:00:00 Sherri 17381.1.1 ity of 3.104.2.7 [place] .3.576782 Medica l .8 [place] 2021-08-08 2021-08-08 Refill Andrade, 1.2.840.8 [id number] 91 [id number] Univers 00:00:00 00:00:00 Cecilio A 55578.1.1 ity of 3.104.2.7 [place] .3.876327 Medica l .8 [place] 2021-08-08 2021-08-08 Patient Doctor 1.2.840.6 [id number] Univers 00:00:00 00:00:00 Secure Msg Unassigned, 64209.1.1 ity of [place] 3.104.2.7 [place] .3.233204 Medica l .8 [place] 2021-08-08 2021-08-08 Telephone Andrade, 1.2.840.7 [id number] Univers 00:00:00 00:00:00 Cecilio A 36990.1.1 ity of 3.104.2.7 [place] .3.091377 Medica l .8 [place] 2021-08-08 2021-08-08 Refill Andrade, 1.2.840.4 [id number] 91 [id number] Univers 00:00:00 00:00:00 Cecilio A 99572.1.1 ity of 3.104.2.7 [place] .3.710074 Medica l .8 [place] 2021-08-08 2021-08-08 Telephone Mina, 1.2.840.6 [id number] Univers 00:00:00 00:00:00 Sherri 75821.1.1 ity of 3.104.2.7 [place] .3.606118 Medica l .8 [place] 2021-08-08 2021-08-08 Refill Andrade, 1.2.840.0 [id number] 91 [id number] Univers 00:00:00 00:00:00 Cecilio A 43166.1.1 ity of 3.104.2.7 [place] .3.265963 Medica l .8 [place] 2021-08-08 2021-08-08 Patient Doctor 1.2.840.8 [id number] Univers 00:00:00 00:00:00 Secure Msg Unassigned, 24935.1.1 ity of [place] 3.104.2.7 [place] .3.128717 Medica l .8 [place] 2021-08-08 2021-08-08 Telephone Andrade, 1.2.840.6 [id number] Univers 00:00:00 00:00:00 Cecilio A 37379.1.1 ity of 3.104.2.7 [place] .3.678477 Medica l .8 [place] 2021-08-08 2021-08-08 Refill Andrade, 1.2.840.6 [id number] Univers 00:00:00 00:00:00 Cecilio A 90855.1.1 ity of 3.104.2.7 [place] .3.048678 Medica l .8 [place] 2021-08-08 2021-08-08 Telephone Mina, 1.2.840.0 [id number] Univers 00:00:00 00:00:00 Sherri 10158.1.1 ity of 3.104.2.7 [place] .3.056132 Medica l .8 [place] 2021-08-08 2021-08-08 Refill Andrade, 1.2.840.7 [id number] Univers 00:00:00 00:00:00 Cecilio A 70188.1.1 ity of 3.104.2.7 [place] .3.559570 Medica l .8 [place] 2021-07-31 2021-07-31 Telephone Wilder, Clemencia 1.2.840.6 [id number] Univers 00:00:00 00:00:00 57889.1.1 ity of 3.104.2.7 [place] .3.689549 Medica l .8 [place] 2021-07-31 2021-07-31 Telephone Wilder, Clemencia 1.2.840.0 [id number] Univers 00:00:00 00:00:00 34035.1.1 ity of 3.104.2.7 [place] .3.484515 Medica l .8 [place] 2021-07-31 2021-07-31 Telephone Wilder, Clemencia 1.2.840.3 [id number] Univers 00:00:00 00:00:00 75288.1.1 ity of 3.104.2.7 [place] .3.126372 Medica l .8 [place] 2021-07-30 2021-07-30 RefLulú Rodriguez 1.2.840.8 [id number] Univers 00:00:00 00:00:00 N 03806.1.1 ity of 3.104.2.7 [place] .3.975342 Medica l .8 [place] 2021-07-30 2021-07-30 RefLulú Rodriguez 1.2.840.5 [id number] Univers 00:00:00 00:00:00 N 29785.1.1 ity of 3.104.2.7 [place] .3.665424 Medica l .8 [place] 2021-07-30 2021-07-30 RefLulú Rodriguez 1.2.840.0 [id number] Univers 00:00:00 00:00:00 N 53093.1.1 ity of 3.104.2.7 [place] .3.805251 Medica l .8 [place] 2021-07-30 2021-07-30 RefLulú Rodriguez 1.2.840.0 [id number] Univers 00:00:00 00:00:00 N 56087.1.1 ity of 3.104.2.7 [place] .3.683708 Medica l .8 [place] 2021-07-28 2021-07-28 Refill [place], 1.2.840.0 [id number] Univers 00:00:00 00:00:00 Qiangjun 23623.1.1 ity of 3.104.2.7 [place] .3.965289 Medica l .8 [place] 2021-07-28 2021-07-28 Refill Khalife, 1.2.840.9 [id number] Univers 00:00:00 00:00:00 Wissam 82558.1.1 ity of [place] 3.104.2.7 [place] .3.787342 Medica l .8 [place] 2021-07-28 2021-07-28 Refill [place], 1.2.840.2 [id number] Univers 00:00:00 00:00:00 Qiangjun 14429.1.1 ity of 3.104.2.7 [place] .3.115565 Medica l .8 [place] 2021-07-28 2021-07-28 Refill Khalife, 1.2.840.2 [id number] Univers 00:00:00 00:00:00 Wissam 90505.1.1 ity of [place] 3.104.2.7 [place] .3.532825 Medica l .8 [facility] 2021-07-28 2021-07-28 Refill [place], 1.2.840.0 [id number] Univers 00:00:00 00:00:00 Qiangjun 84402.1.1 ity of 3.104.2.7 [place] .3.356758 Medica l .8 [place] 2021-07-28 2021-07-28 Refill Khalife, 1.2.840.9 [id number] Univers 00:00:00 00:00:00 Wissam 66984.1.1 ity of [place] 3.104.2.7 [place] .3.033496 Medica l .8 [place] 2021-07-28 2021-07-28 Refill [place], 1.2.840.8 [id number] Univers 00:00:00 00:00:00 lA 79037.1.1 ity of 3.104.2.7 [place] .3.246334 Medica l .8 [place] 2021-07-28 2021-07-28 Refill [place], 1.2.840.6 [id number] Univers 00:00:00 00:00:00 Krystina 92168.1.1 ity of [place] 3.104.2.7 [place] .3.752896 Medica l .8 [place] 2021-07-23 2021-07-23 [facility] Lulú [place] 1.2.840.1 [id number] Univers 16:30:00 17:41:25 ne Visit N 59360.1.1 ity of 3.104.2.7 [place] .3.145034 Medica l .8 [place] 2021-07-23 2021-07-23 [facility] Lulú [place] 1.2.840.1 [id number] Univers 16:30:00 17:41:25 ne Visit N 82631.1.1 ity of 3.104.2.7 [place] .3.154183 Medica l .8 [place] 2021-07-23 2021-07-23 Outpatient R LUL[facility] [id number] Univers 16:30:00 17:41:25 ity of [facility] 2021-07-23 2021-07-23 [facility] Lulú [place] 1.2.840.1 [id number] Univers 16:30:00 17:41:25 ne Visit N 88668.1.1 ity of 3.104.2.7 [place] .3.125134 Medica l .8 [place] 2021-07-23 2021-07-23 [facility] Lulú [place] 1.2.840.1 [id number] Univers 16:30:00 17:41:25 ne Visit N 58947.1.1 ity of 3.104.2.7 [place] [facility]3.390193 Medica l .8 [place] 2021-07-23 2021-07-23 Outpatient R LULÚ [facility] [id number] Univers 16:30:00 17:41:25 ity of [facility] 2021-07-23 2021-07-23 Outpatient R LULÚ [facility] [id number] Univers 16:30:00 16:30:00 ity of [facility] 2021-07-23 2021-07-23 Outpatient R LULÚ [facility] [id number] Univers 16:30:00 16:30:00 ity of [facility] 2021-07-23 2021-07-23 Outpatient R LULÚ [facility] [id number] Univers 16:30:00 16:30:00 ity of [facility] 2021-07-23 2021-07-23 Outpatient R LULÚ [facility] [id number] Univers 16:30:00 16:30:00 ity of [facility] 2021-07-23 2021-07-23 Outpatient R LULÚ [facility] [id number] Univers 16:30:00 16:30:00 ity of [facility] 2021-07-19 2021-07-19 Outpatient R A[facility] [id number] Univers 15:20:00 15:20:[address] [facility] 2021-07-17 2021-07-17 Outpatient R [place] [facility] [id number] Univers 13:00:00 13:00:[address] [facility] 2021-07-17 2021-07-17 Outpatient R ROBERT [facility] [id number] Univers 13:00:00 13:00:[address] [facility] 2021-07-17 2021-07-17 Outpatient R ROBERT [facility] [id number] Univers 13:00:00 13:00:[address] [facility] 2021-07-17 2021-07-17 Telephone Tonny Lulú 1.2.840.9 [id number] Univers 00:00:00 00:00:00 N 93519.1.1 ity of 3.104.2.7 [place] .3.377031 [facility] l .[facility] [place] 2021-07-17 2021-07-17 Telephone Tonny Lulú 1.2.840.6 [id number] Univers 00:00:00 00:00:00 N 90423.1.1 ity of 3.104.2.7 [place] .3.758278 Medica l .8 [place] 2021-07-17 2021-07-17 Telephone Tonny Lulú 1.2.840.4 [id number] Univers 00:00:00 00:00:00 N 25702.1.1 ity of 3.104.2.7 [place] .3.618894 Medica l .8 [place] 2021-07-17 2021-07-17 Telephone Tonny Lulú 1.2.840.7 [id number] Univers 00:00:00 00:00:00 N 56459.1.1 ity of 3.104.2.7 [place] .3.311328 Medica l .8 [place] 2021-07-13 2021-07-13 Outpatient R JAVIER [facility] [id number] Univers 14:00:00 14:36:10 FLORENCE alba of [facility] 2021-07-12 2021-07-12 Laboratory Valente Castillo 1.2.840.1 10 [id number] Univers 10:45:00 11:26:59 Only Only, Ang Db Test 11905.1.1 ity of 3.104.2.7 [place] .3.634185 Medica l .8 [place] 2021-07-12 2021-07-12 Laboratory Valente Castillo 1.2.840.1 10 [id number] Univers 10:45:00 11:26:59 Only Only, Ang Db Test 23439.1.1 ity of 3.104.2.7 [place] .3.785944 Medica l .8 [place] 2021-07-12 2021-07-12 [facility] [id number] Univers 10:45:00 11:26:59 VALENTE alba o f [facility] 2021-07-12 2021-07-12 Laboratory Elyssa Castillosujey Hennessy 1.2.840.1 10 [id number] [facility] 10:45:00 11:26:59 Only Only, Ang Db Test 27708.1.1 ity of 3.104.2.7 [place] .3.462425 Medica l .8 [place] 2021-07-12 2021-07-12 Laboratory Jonathan, Valente Hennessy 1.2.840.1 10 [id number] [facility] 10:45:00 11:26:59 Only Only, Ang Db Test 70295.1.1 ity of 3.104.2.7 [place] .3.552936 Medica l .8 [place] 2021-07-12 2021-07-12 Outpatient R JONATHAN [facility] [id number] Univers 10:45:00 10:45:00 VALENTE jansen [facility] 2021-07-12 2021-07-12 Travel 1.2.840.1 1.2.608.264 5570 9226 [facility] 00:00:00 00:00:00 98157.1.1 350.1.13.10 ity of 3.104.2.7 [place].3.698 [place].000[place] 084.8 [place] l .8 [place] 2021-07-12 2021-07-12 Travel 1.2.840.1 1.2.209.587 5522 9226 [facility] 00:00:00 00:00:00 14456.1.1 350.1.13.10 ity of 3.104.2.7 4.[place]7.3.698 [place] .3.224996 084.8 Med[place] l .8 [place] 2021-07-12 2021-07-12 Travel 1.2.840.1 1.2.204.571 6476 9226 [facility] 00:00:00 00:00:00 33687.1.1 350.1.13.10 ity of 3.104.2.7 4.[place].7.3.698 [place] .3.185108 084.8 Med[place] l .8 [place] 2021-07-12 2021-07-12 Travel 1.2.840.1 1.2.349.386 2710 9226 Univers 00:00:00 00:00:00 04648.1.1 350.1.13.10 ity of 3.104.2.7 4.[place].7.3.698 [place] .3.648002 084.8 Medica l .8 [facility] 2021-07-11 2021-07-11 [facility] [id number] Univers 20:30:00 20:30:00 VALENTE alba o f [facility] 2021-07-09 2021-07-09 Refill Musunuru, 1.2.840.0 [id number] 905 [id number] Univers 00:00:00 00:00:00 Tejo 53373.1.1 ity of 3.104.2.7 [place] .3.882411 Medica l .8 [facility] 2021-07-09 2021-07-09 Refill [place], 1.2.840.0 [id number] 905 10312 Univers 00:00:00 00:00:00 Tejo 66993.1.1 ity of 3.104.2.7 [place] .3.390306 Medica l .8 [facility] 2021-07-09 2021-07-09 Refill [place], 1.2.840.8 [id number] 905 [id number] Univers 00:00:00 00:00:00 Tejo 56385.1.1 ity of 3.104.2.7 [place] .3.966731 Medica l .8 [facility] 2021-07-09 2021-07-09 Refill [place], 1.2.840.3 [id number] 905 75680 Univers 00:00:00 00:00:00 Tejo 14868.1.1 ity of 3.104.2.7 [place] .3.085217 Medica l .8 [facility] 2021-07-03 2021-07-03 Refill Khalife, 1.2.840.8 [id number] 9038 2879 Univers 00:00:00 00:00:00 Wissam 42479.1.1 ity of [place] 3.104.2.7 [place] .3.109474 Medica l .8 [facility] 2021-07-03 2021-07-03 Refill Khalife, 1.2.840.6 [id number] 9038 5437 Univers 00:00:00 00:00:00 Wissam 38848.1.1 ity of [place] 3.104.2.7 [place] .3.212723 Medica l .8 [facility] 2021-07-03 2021-07-03 Refill Khalife, 1.2.840.3 [id number] 9038 5437 Univers 00:00:00 00:00:00 Wissam 06096.1.1 ity of [place] 3.104.2.7 [place] .3.510687 Medica l .8 [facility] 2021-07-03 2021-07-03 Refill Khalife, 1.2.840.4 [id number] 9038 2879 Univers 00:00:00 00:00:00 Wissam 35197.1.1 ity of [place] 3.104.2.7 [place] .3.225050 Medica l .8 [facility] 2021-07-03 2021-07-03 Refill Khalife, 1.2.840.1 [id number] 9038 5437 Univers 00:00:00 00:00:00 Wissam 32496.1.1 ity of [place] 3.104.2.7 [place] .3.234254 Medica l .8 [facility] 2021-07-03 2021-07-03 Refill Khalife, 1.2.840.4 [id number] 9038 2879 Univers 00:00:00 00:00:00 Wissam 09086.1.1 ity of [place] 3.104.2.7 [place] .3.049114 Medica l .8 [facility] 2021-07-03 2021-07-03 Refill Khalife, 1.2.840.2 [id number] 9038 5437 Univers 00:00:00 00:00:00 Wissam 26089.1.1 ity of [place] 3.104.2.7 [place] .3.753381 Medica l .8 [place] 2021-07-03 2021-07-03 Linda Adkins, 1.2.840.8 [id number] 9038 2879 Univers 00:00:00 00:00:00 Dennisesam 28517.1.1 ity of [place] 3.104.2.7 [place] .3.207733 Medica l .8 [place] 2021-06-30 2021-06-30 Outpatient [facility] [id number] Univers 16:40:00 16:56:06 NARA ity o f [facility] 2021-06-30 2021-06-30 Urgent Kalyn, Nara 1.2.840.5 [id number] [id number] Univers 16:40:00 16:56:06 Staci Marquez 40171.1.1 ity of 3.104.2.7 [place] .3.399628 Medica l .8 [place] 2021-06-30 2021-06-30 Urgent Kalyn, Nara 1.2.840.6 [id number] [id number] Univers 16:40:00 16:56:06 Staci Marquez 93722.1.1 ity of 3.104.2.7 [place] .3.247311 Medica l .8 [place] 2021-06-30 2021-06-30 [facility] [id number] Univers 16:40:00 16:56:06 NARA ity o [facility] 2021-06-30 2021-06-30 Urgent Kalyn, Nara 1.2.840.9 [id number] Univers 16:40:00 16:56:06 Bette Rollins Staci 85144.1.1 ity of 3.104.2.7 [place] .3.975097 Medica l .8 [place] 2021-06-30 2021-06-30 Urgent Kalyn, Nara 1.2.840.6 085140 [id number] [id number] Univers 16:40:00 16:56:06 Staci Marquez 40862.1.1 ity of 3.104.2.7 [place] .3.105561 Medica l .8 [facility] 2021-06-29 2021-06-29 Telephone Only, Ang 1.2.840.1 [id number] Univers 00:00:00 00:00:00 Db Test 11614.1.1 ity of 3.104.2.7 [place] .3.211261 Medica l .8 [facility] 2021-06-29 2021-06-29 Refill Khalife, 1.2.840.5 [id number] 9027 0853 Univers 00:00:00 00:00:00 Wissam 45739.1.1 ity of [place] 3.104.2.7 [place] .3.871153 Medica l .8 [facility] 2021-06-29 2021-06-29 Refill Khalife, 1.2.840.1 [id number] 9028 9777 Univers 00:00:00 00:00:00 Wissam 61697.1.1 ity of [place] 3.104.2.7 [place] .3.477327 Medica l .8 [facility] 2021-06-29 2021-06-29 Telephone Only, Ang 1.2.840.1 [id number] Univers 00:00:00 00:00:00 Db Test 09829.1.1 ity of 3.104.2.7 [place] .3.651320 Medica l .8 [facility] 2021-06-29 2021-06-29 Refill Khalife, 1.2.840.6 [id number] 9028 9777 Univers 00:00:00 00:00:00 Wissam 48331.1.1 ity of [place] 3.104.2.7 [place] .3.855226 Medica l .8 [facility] 2021-06-29 2021-06-29 Refill Khalife, 1.2.840.0 [id number] 9027 0853 Univers 00:00:00 00:00:00 Wissam 00121.1.1 ity of [place] 3.104.2.7 [place] .3.301056 Medica l .8 [facility] 2021-06-29 2021-06-29 Telephone Only, Ang 1.2.840.4 [id number] Univers 00:00:00 00:00:00 Db Test 83631.1.1 ity of 3.104.2.7 [place] .3.371529 Medica l .8 [place] 2021-06-29 2021-06-29 Refill Khalife, 1.2.840.8 [id number] 9028 9777 Univers 00:00:00 00:00:00 Wissam 95614.1.1 ity of [place] 3.104.2.7 [place] .3.357970 Medica l .8 [place] 2021-06-29 2021-06-29 Refill Khalife, 1.2.840.2 [id number] 9027 0853 Univers 00:00:00 00:00:00 Wissam 14125.1.1 ity of [place] 3.104.2.7 [place] .3.065974 Medica l .8 [place] 2021-06-28 2021-06-28 [facility] [id number] Univers 17:33:36 23:59:00 RANIA ity of [facility] 2021-06-28 2021-06-28 [facility] 1.2.616.716 3840 [facility] Univers 17:33:36 23:59:00 Encounter Mary [facility] 350.1.13.10 ity of [place] 4.2.7.2.686 [place] as ROBERTA?BLEA [id number] Va femi [facility] [address] [place] [facility] 2021-06-28 2021-06-28 [facility]patient [facility] [id number] Univers 17:33:36 23:59:00 RANIA ity of [facility] 2021-06-28 2021-06-28 [facility], 1.2.840.8 [id number] 902 [id number] Univers 17:33:36 23:59:00 Encounter Mary 63465.1.1 it y of 3.104.2.7 [place] .3.601732 Medica l .8 [place] 2021-06-28 2021-06-28 [facility], 1.2.840.7 [id number] 902 73128 Univers 17:33:36 23:59:00 Encounter Mary 48542.1.1 it y of 3.104.2.7 [place] .3.827164 Medica [facility] [place] 2021-06-28 2021-06-28 Hospital Varsha, 1.2.840.0 [id number] 902 81821 Univers 17:33:36 23:59:00 Encounter Jimjamar 40428.1.1 it y of 3.104.2.7 [place] .3.934759 Medica [facility] [place] 2021-06-28 2021-06-28 Urgent Jim Maddoxjamar [facility] 1.2.840.114 [id number] Univers 17:00:00 17:49:59 Care [facility] 350.1.13.10 ity of [place] 4.2.7.2.686 [place] as ROBERTA?BLEA [id number] [address] MEDICAL OFFICE BUILDING 2021-06-28 2021-06-28 Urgent Green, Phan 1.2.840.2 [id number] Univers 17:00:00 17:49:59 Care EbramosmomoJimia 58746.1.1 ity of 3.104.2.7 [place] .3.661186 [facility] [address] 2021-06-28 2021-06-28 Urgent Green, Phan 1.2.840.8 [id number] Univers 17:00:00 17:49:59 Care MehnazmomoJimia 35017.1.1 ity of 3.104.2.7 [place] .3.427723 [facility] [address] 2021-06-28 2021-06-28 Outpatient R DEVANTE, [facility] [id number] Univers 17:00:00 17:49:59 PHAN ity of [facility] 2021-06-28 2021-06-28 Urgent Green, Phan 1.2.840.6 [id number] Univers 17:00:00 17:49:59 Care EbrahimJimia 27443.1.1 ity of 3.104.2.7 [place] .3.169906 Medica l .8 [place] 2021-06-28 2021-06-28 Travel 1.2.840.1 1.2.009.810 5306 1723 Univers 00:00:00 00:00:00 91884.1.1 350.1.13.10 ity of 3.104.2.7 4.[place].7.3.698 [place] .3.657784 084.8 Medica l .8 [place] 2021-06-28 2021-06-28 Travel 1.2.840.1 1.2.026.273 5862 1723 Univers 00:00:00 00:00:00 80203.1.1 350.1.13.10 ity of 3.104.2.7 4.2.7.3.698 [place] .3.954205 084.8 Medica l .8 [place] 2021-06-28 2021-06-28 Travel 1.2.840.1 1.2.517.945 6109 1723 Univers 00:00:00 00:00:00 35003.1.1 350.1.13.10 ity of 3.104.2.7 4.2.7.3.698 [place] .3.356336 084.8 Med[place] l .8 [place] 2021-06-25 2021-06-25 Antwan Andrade [facility] 1.2.840.114 9 [id number] Univers 00:00:00 00:00:00 Cecilio LOWE 350.1.13.10 ity of [place] 4.2.7.2.686 [place] RODRÍGUEZESSIO [id number] Va dical NAL 044 [facility] 2021-06-25 2021-06-25 Telephone Lupe, 1.2.840.6 [id number] Univers 00:00:00 00:00:00 Cecilio Payne 31379.1.1 ity of 3.104.2.7 [place] .3.606870 Medica l .8 [place] 2021-06-25 2021-06-25 Telephone Lupe, 1.2.840.9 [id number] Univers 00:00:00 00:00:00 Cecilio A 57480.1.1 ity of 3.104.2.7 [place] .3.675048 Medica l .8 [place] 2021-06-25 2021-06-25 Telephone Lupe, 1.2.840.7 [id number] Univers 00:00:00 00:00:00 Cecilio A 89165.1.1 ity of 3.104.2.7 [place] .3.781463 Medica l .8 [place] 2021-06-21 2021-06-21 Outpatient R TRACEY [facility] [id number] Univers 13:30:00 13:48:55 ity of [facility] 2021-06-21 2021-06-21 Outpatient R TRACEY [facility] [id number] Univers 13:30:00 13:48:55 ity of [facility] 2021-06-21 2021-06-21 Outpatient R TRACEY [facility] [id number] Univers 13:30:00 13:48:55 ity of [facility] 2021-06-21 2021-06-21 [place] [facility] 1.2.840.114 [id number] Univers 00:00:00 00:00:00 Cecilio LOWE 350.1.13.10 [facility] 4.2.7.2.686 Britta RODRÍGUEZESSIO [id number] Va dical NAL 044 [facility] 2021-06-21 2021-06-21 Telephone Lupe, 1.2.840.1 [id number] Univers 00:00:00 00:00:00 Cecilio Payne 08417.1.1 ity of 3.104.2.7 [place] .3.963699 Medica l .8 [place] 2021-06-21 2021-06-21 Telephone Lupe 1.2.840.3 [id number] Univers 00:00:00 00:00:00 Cecilio A 22835.1.1 ity of 3.104.2.7 [place] .3.217292 Medica l .8 [place] 2021-06-13 2021-06-13 Outpatient R HERRERA, [facility] [id number] Univers 09:00:00 09:46:48 FLORENCE ity of [facility] 2021-06-13 2021-06-13 Outpatient Toan HERRERA, [facility] [id number] 079 Univers 09:00:00 09:46:48 FLORENCE ity of [facility] 2021-06-07 2021-06-07 Telephone Andrade, 1.2.840.3 [id number] Univers 00:00:00 00:00:00 Cecilio A 01507.1.1 ity of 3.104.2.7 [place] .3.564932 Medica l .8 [place] 2021-06-07 2021-06-07 Telephone Andrade, 1.2.840.2 [id number] Univers 00:00:00 00:00:00 Cecilio A 61842.1.1 ity of 3.104.2.7 [place] .3.383991 Medica l .8 [place] 2021-06-07 2021-06-07 Telephone Andrade, 1.2.840.8 [id number] Univers 00:00:00 00:00:00 Cecilio A 47545.1.1 ity of 3.104.2.7 [place] .3.096583 Medica l .8 [place] 2021-06-05 2021-06-06 Telemedici Andrade, 1.2.840.3 [id number] Univers 15:40:00 08:45:44 ne Visit Cecilio A 54172.1.1 ity of 3.104.2.7 [place] .3.584483 Medica l .8 [place] 2021-06-05 2021-06-06 Outpatient Toan LUPE, [facility] [id number] Univers 15:40:00 08:45:44 CECILIO ity of [facility] 2021-06-05 2021-06-06 Telemedici Andrade, 1.2.840.7 [id number] Univers 15:40:00 08:45:44 ne Visit Cecilio A 01219.1.1 ity of 3.104.2.7 [place] .3.427872 Medica l .8 [place] 2021-06-05 2021-06-06 Telemedic Lupe, 1.2.840.5 [id number] Univers 15:40:00 08:45:44 ne Visit Cecilio Payne 41299.1.1 ity of 3.104.2.7 [place] .3.547648 Medica l .8 [place] 2021-06-05 2021-06-06 [facility] [id number] Univers 15:40:00 08:45:[address] [facility] 2021-06-05 2021-06-05 [facility], 1.2.840.8 [id number] 8495 3630 Univers 09:49:50 23:59:00 Encounter Ryder 07071.1.1 it y of 3.104.2.7 [place] .3.358512 Medica l .8 [place] 2021-06-05 2021-06-05 [facility], 1.2.840.4 [id number] 8495 3630 Univers 09:49:50 23:59:00 Encounter Ryder 22733.1.1 it y of 3.104.2.7 [place] .3.389224 Medica l .8 [place] 2021-06-05 2021-06-05 [facility], 1.2.840.8 [id number] 8495 3630 Univers 09:49:50 23:59:00 Encounter Ryder 31120.1.1 it y of 3.104.2.7 [place] .3.515503 Medica l .8 [place] 2021-06-05 2021-06-05 Outpatient R ANDRADE [facility] [id number] Univers 15:40:00 15:40:[address] [facility] 2021-06-05 2021-06-05 [facility] [id number] Univers 10:15:00 10:15:[address] [facility] 2021-06-05 2021-06-05 Outpatient Toan [facility] [id number] Univers 10:15:00 10:15:00 RYDER ity of [facility] 2021-06-05 2021-06-05 Travel 1.2.840.1 1.2.466.945 5483 9622 Univers 00:00:00 00:00:00 03636.1.1 350.1.13.10 ity of 3.104.2.7 4.2.7.3.698 [place] .3.550882 084.8 Medica l .8 [facility] 2021-06-05 2021-06-05 Travel 1.2.840.1 1.2.576.578 3933 9622 Univers 00:00:00 00:00:00 74185.1.1 350.1.13.10 ity of 3.104.2.7 4.2.7.3.698 [place] .3.580094 084.8 Medica l .8 [place] 2021-06-05 2021-06-05 Travel 1.2.840.1 1.2.204.490 5557 9622 Univers 00:00:00 00:00:00 81477.1.1 350.1.13.10 ity of 3.104.2.7 4.2.7.3.698 [place] .3.077122 084.8 Medica l .8 [facility] 2021-05-31 2021-05-31 Orders Doctor 1.2.840.0 [id number] Univers 00:00:00 00:00:00 Only Unassigned, 82530.1.1 ity of [place] 3.104.2.7 [place] .3.703415 Medica l .8 [facility] 2021-05-31 2021-05-31 Orders Doctor 1.2.840.2 [id number] Univers 00:00:00 00:00:00 Only Unassigned, 37571.1.1 ity of [place] 3.104.2.7 [place] .3.984720 Medica l .8 [facility] 2021-05-31 2021-05-31 Orders Doctor 1.2.840.8 [id number] Univers 00:00:00 00:00:00 Only Unassigned, 93068.1.1 ity of [place] 3.104.2.7 [place] .3.754954 Medica l .8 [facility] 2021-05-28 2021-05-28 Telephone Jones, 1.2.840.4 [id number] 10877 Univers 00:00:00 00:00:00 Wentong 55537.1.1 ity of 3.104.2.7 [place] .3.731332 Medica l .8 [facility] 2021-05-28 2021-05-28 Telephone Jones, 1.2.840.2 [id number] 894 83568 Univers 00:00:00 00:00:00 Wentong 29783.1.1 ity of 3.104.2.7 [place] .3.860767 Medica l .8 [facility] 2021-05-28 2021-05-28 Telephone Jones, 1.2.840.7 [id number] 894 60140 Univers 00:00:00 00:00:00 Wentong 22089.1.1 ity of 3.104.2.7 [place] .3.918562 Medica l .8 [facility] 2021-05-25 2021-05-25 Refill Jones, 1.2.840.6 [id number] 805 Univers 00:00:00 00:00:00 Wentong 00210.1.1 ity of 3.104.2.7 [place] .3.165252 Medica l .8 [facility] 2021-05-25 2021-05-25 Refill Jones, 1.2.840.8 [id number] 601 Univers 00:00:00 00:00:00 Wentong 16646.1.1 ity of 3.104.2.7 [place] .3.369953 Medica l .8 [facility] 2021-05-25 2021-05-25 Refill Jones, 1.2.840.7 [id number] 805 Univers 00:00:00 00:00:00 Wentong 02268.1.1 ity of 3.104.2.7 [place] .3.349158 Medica l .8 [facility] 2021-05-25 2021-05-25 Refill Jones, 1.2.840.4 [id number] 601 Univers 00:00:00 00:00:00 Wentong 44320.1.1 ity of 3.104.2.7 [place] .3.139043 Medica l .8 [place] 2021-05-25 2021-05-25 Refill Jones, 1.2.840.3 [id number] 805 Univers 00:00:00 00:00:00 Wentong 86072.1.1 ity of 3.104.2.7 [place] .3.477987 Medica l .8 [place] 2021-05-25 2021-05-25 Refill Jones, 1.2.840.4 [id number] 66512 601 Univers 00:00:00 00:00:00 Wentong 66613.1.1 ity of 3.104.2.7 [place] .3.971829 Medica l .8 [place] 2021-05-23 2021-05-23 [facility] [id number] Univers 14:00:00 14:33:25 FLORENCE ity of [facility] 2021-05-23 2021-05-23 [facility] [id number] Univers 14:00:00 14:33:[address] [facility] 2021-05-21 2021-05-21 Refill Andrade, 1.2.840.9 [id number] Univers 00:00:00 00:00:00 Cecilio Payne 36840.1.1 ity of 3.104.2.7 [place] .3.725086 Medica l .8 [place] 2021-05-21 2021-05-21 Refill Andrade, 1.2.840.1 [id number] Univers 00:00:00 00:00:00 Cecilio A 76000.1.1 ity of 3.104.2.7 [place] .3.016287 Medica l .8 [place] 2021-05-10 2021-05-10 Office Bernie, 1.2.840.3 [id number] Univers 16:00:00 16:30:21 Visit Peter 01927.1.1 ity of 3.104.2.7 [place] .3.892727 Medica l .8 [place] 2021-05-10 2021-05-10 [facility] [id number] Univers 16:00:00 16:30:[address] [facility] 2021-05-10 2021-05-10 Office Bernie, 1.2.840.8 [id number] Univers 16:00:00 16:30:21 Visit Samra 84698.1.1 ity of 3.104.2.7 [place] .3.427263 Medica l .8 [place] 2021-05-10 2021-05-10 [facility] 1036 [id number] Univers 16:00:00 16:30:[address] [facility] 2021-05-10 2021-05-10 [id number] Univers 16:00:00 16:00:[address] [facility] 2021-05-10 2021-05-10 Travel 1.2.840.1 1.2.166.613 8601 1438 Univers 00:00:00 00:00:00 71329.1.1 350.1.13.10 ity of 3.104.2.7 4.[place].7.3.698 [place] .3.472416 084.8 Medica l .8 [place] 2021-05-10 2021-05-10 Travel 1.2.840.1 1.2.899.873 6724 1438 Univers 00:00:00 00:00:00 90356.1.1 350.1.13.10 ity of 3.104.2.7 4.2.7.3.698 [place] .3.041596 084.8 Medica l .8 [place] 2021-05-07 2021-05-07 Telephone [facility] 1.2.840.114 [id number] Univers 00:00:00 00:00:00 Cecilio LOWE 350.1.13.10 [facility] [place] [id number] Va dical NAL 044 [facility] 2021-05-07 2021-05-07 Telephone Lupe, 1.2.840.1 [id number] Univers 00:00:00 00:00:00 Cecilio Payne 80536.1.1 ity of 3.104.2.7 [place] .3.045028 Medica l .8 [place] 2021-05-07 2021-05-07 Telephone Lupe, 1.2.840.7 [id number] Univers 00:00:00 00:00:00 Cecilio A 81976.1.1 ity of 3.104.2.7 [place] .3.832527 Medica l .8 [place] 2021-05-03 2021-05-03 Outpatient R KIESHA KILGORE [facility] [id number] Univers 14:15:00 14:43:58 ity of [facility] 2021-05-03 2021-05-03 Outpatient R KIESHA KILGORE [facility] [id number] Univers 14:15:00 14:43:58 ity of [facility] 2021-05-03 2021-05-03 Outpatient R KIESHA KILGORE [facility] [id number] Univers 14:15:00 14:43:58 ity of [facility] 2021-05-03 2021-05-03 Travel 1.2.840.1 1.2.178.955 [id number] Univers 00:00:00 00:00:00 76326.1.1 350.1.13.10 ity of 3.104.2.7 4.[place]7.3.698 [place] .3.447783 084.8 Medica l .8 [place] 2021-05-03 2021-05-03 Patient Doctor 1.2.840.6 [id number] Univers 00:00:00 00:00:00 Secure Msg Unassigned, 26288.1.1 ity of [place] 3.104.2.7 [place] .3.187308 Medica l .8 [place] 2021-05-03 2021-05-03 Travel 1.2.840.1 1.2.983.736 [id number] Univers 00:00:00 00:00:00 94038.1.1 350.1.13.10 ity of 3.104.2.7 4.[place]7.3.698 [place] .3.126903 084.8 Medica l .8 [place] 2021-05-03 2021-05-03 Patient Doctor 1.2.840.4 [id number] Univers 00:00:00 00:00:00 Secure Msg Unassigned, 24554.1.1 ity of [place] 3.104.2.7 [place] .3.579465 Medica l .8 [place] 2021-05-03 2021-05-03 Travel 1.2.840.1 1.2.833.518 [id number] [id number] Univers 00:00:00 00:00:00 23688.1.1 350.1.13.10 ity of 3.104.2.7 4.2[place]7.3.698 [place] .3.307646 084.8 Medica l .8 [place] 2021-05-03 2021-05-03 Patient Doctor 1.2.840.8 [id number] Univers 00:00:00 00:00:00 Secure Msg Unassigned, 44484.1.1 ity of [place] 3.104.2.7 [place] .3.357963 Medica l .8 [place] 2021-05-01 2021-05-01 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 Renate Florian 1.2.840.9 [id number] Univers 08:45:00 13:25:18 Visit Draw, [facility] 15785.1.1 ity of 3.104.2.7 [place] .3.905564 Medica l .8 [place] 2021-05-01 2021-05-01 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 [employer] Renate Florian 1.2.840.7 [id number] Univers 08:45:00 13:25:18 Visit Draw, [facility] 70663.1.1 ity of 3.104.2.7 [place] .3.345084 Medica l .8 [place] 2021-05-01 2021-05-01 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 [employer] Renate Florian 1.2.840.9 [id number] Univers 08:27:07 13:25:18 Visit Draw, [facility] 56330.1.1 ity of 3.104.2.7 [place] .3.439290 Medica l .8 [place] 2021-05-01 2021-05-01 Outpatient R FLORIAN [facility] [id number] Univers 08:45:00 08:45:[address] [facility] 2021-05-01 2021-05-01 [facility] [id number] Univers 08:45:00 08:45:[address] [facility] 2021-05-01 2021-05-01 Office Benito Adkinsmomo Namita 1.2.840.5 [id number] Univers 08:00:00 08:25:24 Visit Practitioner, Heart Failure Nurse 1435 0.1.1 ity of 3.104.2.7 [place] .3.329166 Medica l .8 [place] 2021-05-01 2021-05-01 Office Krystina Adkins 1.2.840.5 [id number] Univers 08:00:00 08:25:24 Visit Practitioner, Heart Failure Nurse 1435 0.1.1 ity of 3.104.2.7 [place] .3.936230 Medica l .8 [place] 2021-05-01 2021-05-01 Office Benito Adkinsmomo Namita 1.2.840.4 [id number] Univers 07:56:01 08:25:24 Visit Practitioner, Heart Failure Nurse 1435 0.1.1 ity of 3.104.2.7 [place] .3.294419 Medica l .8 [place] 2021-05-01 2021-05-01 Outpatient R [facility] [id number] Univers 08:00:00 08:00:[address] [facility] 2021-04-30 2021-04-30 Travel 1.2.840.1 1.2.231.285 [id number] Univers 00:00:00 00:00:00 60183.1.1 350.1.13.10 ity of 3.104.2.7 4.2[place]7.3.698 [place] .3.658195 084.8 Medica l .8 [place] 2021-04-30 2021-04-30 Travel 1.2.840.1 1.2.700.464 3853 9910 Univers 00:00:00 00:00:00 96689.1.1 350.1.13.10 ity of 3.104.2.7 4.2[place]7.3.698 [place] .3.263756 084.8 Medica l .8 [place] 2021-04-30 2021-04-30 Travel 1.2.840.1 1.2.924.678 6631 9910 Univers 00:00:00 00:00:00 17737.1.1 350.1.13.10 ity of 3.104.2.7 4.2.7.3.698 [place] .3.802857 084.8 Medica l .8 [place] 2021-04-30 2021-04-30 Travel 1.2.840.1 1.2.934.211 7540 9910 Univers 00:00:00 00:00:00 76430.1.1 350.1.13.10 ity of 3.104.2.7 4.2.7.3.698 [place] .3.981710 084.8 Medica l .8 [place] 2021-04-25 2021-04-25 Outpatient R JAVIER, [facility] [id number] Univers 13:00:00 13:36:[address] [facility] 2021-04-25 2021-04-25 Outpatient R JAVIER, [facility] [id number] Univers 13:00:00 13:36:43 [facility] 2021-04-24 Outpatient R SINDY, [facility] [id number] Univers 13:30:00 13:30:[address] [facility] 2021-04-17 2021-04-17 Refill Andrade, 1.2.840.3 [id number] [facility] 00:00:00 00:00:00 Cecilio A 16989.1.1 ity of 3.104.2.7 [place] .3.926340 Medica l .8 Branch 2021-04-17 2021-04-17 Refill Andrade, 1.2.840.1 [id number] [facility] 00:00:00 00:00:00 Cecilio A 35106.1.1 ity of 3.104.2.7 [place] .3.838372 Medica l .8 Branch 2021-04-17 2021-04-17 Refill Andrade, 1.2.840.8 [id number] [facility] 00:00:00 00:00:00 Cecilio A 28773.1.1 ity of 3.104.2.7 [place] .3.767899 Medica l .8 Branch 2021-04-17 2021-04-17 Refill Andrade, 1.2.840.4 [id number] [facility] 00:00:00 00:00:00 Cecilio A 77404.1.1 ity of 3.104.2.7 [place] .3.153880 Medica l .8 Branch 2021-04-09 2021-04-10 Telemedici Andrade, 1.2.840.9 [id number] Univers 16:00:00 08:53:34 ne Visit Cecilio A 58650.1.1 ity of 3.104.2.7 [place] .3.973226 Medica l .8 Branch 2021-04-09 2021-04-10 Telemedici Andrade, 1.2.840.8 [id number] Univers 11:08:52 08:53:34 ne Visit Cecilio A 91674.1.1 ity of 3.104.2.7 [place] .3.832060 Medica l .8 Branch 2021-04-09 2021-04-10 Telemedici Andrade, 1.2.840.4 [id number] Univers 11:08:52 08:53:34 ne Visit Cecilio Payne 95419.1.1 ity of 3.104.2.7 [place] .3.952431 Medica l .8 [place] 2021-04-09 2021-04-09 Outpatient R LUPE [facility] [id number] Univers 16:00:00 16:00:00 CECILIO ity of [facility] 2021-04-05 2021-04-05 Outpatient R JAME KEISHA [facility] 022 [id number] Univers 15:45:00 16:34:37 ity of [facility] 2021-04-05 2021-04-05 Outpatient R JAME KIESHA [facility] [id number] [id number] Univers 15:45:00 15:45:[address] [facility] 2021-04-05 2021-04-05 Travel 1.2.840.1 1.2.622.979 0199 0755 Univers 00:00:00 00:00:00 75330.1.1 350.1.13.10 ity of 3.104.2.7 [place].3.698 [place].278[place] 084.8 [place] l .8 [place] 2021-04-05 2021-04-05 Travel 1.2.840.1 1.2.936.488 6181 0755 Univers 00:00:00 00:00:00 47778.1.1 350.1.13.10 ity of 3.104.2.7 [place].3.698 [place]3.721054 084.8 Med[place] l .8 [place] 2021-04-05 2021-04-05 Travel 1.2.840.1 1.2.120.295 8294 0755 Univers 00:00:00 00:00:00 04265.1.1 350.1.13.10 ity of 3.104.2.7 [place].3.698 [place] .3.047227 084.8 Med[place] l .8 [place] 2021-04-03 2021-04-03 Outpatient R PARISH [facility] [id number] Univers 13:00:00 16:55:35 AL bennetty o [facility] 2021-04-03 2021-04-03 Office Parish, 1.2.840.6 [id number] Univers 13:00:00 16:55:35 Visit Al 42262.1.1 ity of 3.104.2.7 [place] .3.095037 Medica l .8 [place] 2021-04-03 2021-04-03 Outpatient R PARISH, [facility] [id number] Univers 13:00:00 16:55:35 AL bennetty o [facility] 2021-04-03 2021-04-03 Outpatient R PARISH, [facility] [id number] Univers 13:00:00 16:55:35 AL bennetty o [facility] 2021-04-03 2021-04-03 Outpatient R PARISH, [facility] [id number] Univers 13:00:00 16:55:35 AL bennetty o [facility] 2021-04-03 2021-04-03 Outpatient R PARISH, [facility] [id number] Univers 13:00:00 16:55:35 AL benentty o [facility] 2021-04-03 2021-04-03 Outpatient R PARISH, [facility] [id number] Univers 13:00:00 16:55:35 AL bennetty o [facility] 2021-04-03 2021-04-03 Office [place], 1.2.840.9 [id number] Univers 11:24:07 16:55:35 Visit Al 29541.1.1 ity of 3.104.2.7 [place] .3.016301 Medica l .8 [place] 2021-04-03 2021-04-03 Office [place], 1.2.840.3 [id number] Univers 11:24:07 16:55:35 Visit Al 46832.1.1 ity of 3.104.2.7 [place] .3.793682 Medica l .8 [place] 2021-04-03 2021-04-03 Orders Doctor PEREZ 1.2.840.114 [id number] Univers 00:00:00 00:00:00 Only Unassigned, JP 350.1.13.10 ity of [place] [facility] 4.2.7.2.686 [place] as [phone] [facility] marium 009 [place] 2021-04-03 2021-04-03 Orders Doctor 1.2.840.0 [id number] Univers 00:00:00 00:00:00 Only Unassigned, 85676.1.1 ity of Katie 3.104.2.7 [place] .3.346251 Medica l .8 Branch 2021-04-03 2021-04-03 Travel 1.2.840.1 1.2.142.069 7677 8796 Univers 00:00:00 00:00:00 69770.1.1 350.1.13.10 ity of 3.104.2.7 4.[place].7.3.698 [place] .3.265925 084.8 Medica l .8 Branch 2021-04-03 2021-04-03 Orders Doctor 1.2.840.5 [id number] Univers 00:00:00 00:00:00 Only Unassigned, 06901.1.1 ity of Katie 3.104.2.7 [place] .3.642075 Medica l .8 Branch 2021-04-03 2021-04-03 Travel 1.2.840.1 1.2.411.760 9813 8796 Univers 00:00:00 00:00:00 83922.1.1 350.1.13.10 ity of 3.104.2.7 4.[place].7.3.698 [place] .3.531228 084.8 Medica l .8 Branch 2021-04-03 2021-04-03 Orders Doctor 1.2.840.0 [id number] Univers 00:00:00 00:00:00 Only Unassigned, 96388.1.1 ity of Katie 3.104.2.7 [place] .3.929940 Medica l .8 Branch 2021-04-03 2021-04-03 Travel 1.2.840.1 1.2.444.253 3991 8796 Univers 00:00:00 00:00:00 22350.1.1 350.1.13.10 ity of 3.104.2.7 [place].7.3.698 [place] .3.702776 084.8 Medica l .8 Branch 2021-03-29 2021-03-29 Refill Jones, [facility] 1.2.840.114 [id number] Univers 00:00:00 00:00:00 Wentong [place] 350.1.13.10 [place] [id number] Me dical nal 220 [facility] 2021-03-29 2021-03-29 Refill Jones, 1.2.840.6 [id number] Univers 00:00:00 00:00:00 Wentong 37142.1.1 ity of 3.104.2.7 [place] .3.902174 Medica l .8 Branch 2021-03-29 2021-03-29 Refill Jones, 1.2.840.9 [id number] 601 Univers 00:00:00 00:00:00 Wentong 27465.1.1 ity of 3.104.2.7 [place] .3.691112 Medica l .8 Branch 2021-03-29 2021-03-29 Refill Ojnes, 1.2.840.9 [id number] 601 Univers 00:00:00 00:00:00 Wentong 03855.1.1 ity of 3.104.2.7 [place] .3.240368 Medica l .8 Branch 2021-03-16 2021-03-16 Telephone Khalife, 1.2.840.3 [id number] Univers 00:00:00 00:00:00 Wissam 12374.1.1 ity of [place] 3.104.2.7 [place] .3.560512 Medica l .8 Branch 2021-03-16 2021-03-16 Telephone Khalife, 1.2.840.4 [id number] 87 [id number] Univers 00:00:00 00:00:00 Wissam 60685.1.1 ity of [place] 3.104.2.7 [place] .3.198287 Medica l .8 Branch 2021-03-16 2021-03-16 Telephone Sindy, 1.2.840.6 [id number] 87 [id number] Univers 00:00:00 00:00:00 Wissam 74382.1.1 ity of [place] 3.104.2.7 [place] .3.295072 Medica l .8 Branch 2021-03-16 2021-03-16 Telephone Sindy, 1.2.840.1 [id number] 87 [id number] Univers 00:00:00 00:00:00 Wissam 34184.1.1 ity of [place] 3.104.2.7 [place] .3.856367 Medica l .8 Branch 2021-03-14 2021-03-14 [facility], 1.2.840.1 [id number] [id number] Univers 00:00:00 23:59:00 Encounter Ryder 58634.1.1 it y of 3.104.2.7 [place] .3.241563 Medica l .8 [place] 2021-03-14 2021-03-14 [facility], 1.2.840.9 [id number] [id number] Univers 00:00:00 23:59:00 Encounter Ryder 73043.1.1 it y of 3.104.2.7 [place] .3.480195 Medica l .8 [place] 2021-03-14 2021-03-14 [facility], 1.2.840.0 [id number] [id number] Univers 00:00:00 23:59:00 Encounter Ryder 85181.1.1 it y of 3.104.2.7 [place] .3.232889 Medica l .8 Branch 2021-03-14 2021-03-14 [facility] [id number] Univers 00:00:00 00:00:00 RYDER ity of [facility] 2021-03-13 2021-03-13 Office Jones, 1.2.840.4 [id number] Univers 13:40:34 14:16:28 Visit Zhen 24110.1.1 ity of 3.104.2.7 [place] .3.333438 Medica l .8 [place] 2021-03-13 2021-03-13 Office Jones, 1.2.840.4 [id number] 124 Univers 13:40:34 14:16:28 Visit Zhen 27861.1.1 ity of 3.104.2.7 [place] .3.422900 Medica l .8 Branch 2021-03-13 2021-03-13 Office Jones, 1.2.840.5 [id number] 124 Univers 13:40:34 14:16:28 Visit Zhen 31867.1.1 ity of 3.104.2.7 [place] .3.465202 Medica l .8 [place] 2021-03-13 2021-03-13 Office Jones, 1.2.840.6 [id number] 124 Univers 13:40:34 14:16:28 Visit Zhen 66587.1.1 ity of 3.104.2.7 [place] .3.574571 Medica l .8 [place] 2021-03-13 2021-03-13 Outpatient R ROBERT, [facility] [id number] Univers 14:00:00 14:00:00 WENTONG ity of [facility] 2021-03-13 2021-03-13 Travel 1.2.840.1 1.2.132.298 4516 9565 Univers 00:00:00 00:00:00 85818.1.1 350.1.13.10 ity of 3.104.2.7 4.2.7.3.698 [place] .3.831466 084.8 Medica l .8 [place] 2021-03-13 2021-03-13 Travel 1.2.840.1 1.2.585.601 9076 9565 Univers 00:00:00 00:00:00 82061.1.1 350.1.13.10 ity of 3.104.2.7 4.2.7.3.698 [place] .3.119341 084.8 Medica l .8 [place] 2021-03-13 2021-03-13 Travel 1.2.840.1 1.2.139.887 3977 9565 Univers 00:00:00 00:00:00 31663.1.1 350.1.13.10 ity of 3.104.2.7 4.2.7.3.698 [place] .3.780649 084.8 Medica l .8 [place] 2021-03-13 2021-03-13 Travel 1.2.840.1 1.2.105.447 0605 9565 Univers 00:00:00 00:00:00 05904.1.1 350.1.13.10 ity of 3.104.2.7 4.2.7.3.698 [place] .3.760506 084.8 Medica l .8 [place] 2021-03-13 2021-03-13 Travel 1.2.840.1 1.2.675.618 2616 9565 Univers 00:00:00 00:00:00 09980.1.1 350.1.13.10 ity of 3.104.2.7 4.2.7.3.698 [place] .3.374358 084.8 Medica l .8 [place] 2021-03-08 2021-03-08 Outpatient KIESHA CONTI [facility] [id number] Univers 12:45:00 12:45:00 ity of [facility] 2021-03-07 2021-03-07 Outpatient R LULÚ LANCASTER [facility] [id number] Univers 12:00:00 12:00:00 ity of [facility] 2021-03-05 2021-03-05 Telephone Lupe, 1.2.840.1 [id number] Univers 00:00:00 00:00:00 Cecilio A 71347.1.1 ity of 3.104.2.7 [place] .3.147506 Medica l .8 [place] 2021-03-05 2021-03-05 Telephone Lupe, 1.2.840.6 [id number] Univers 00:00:00 00:00:00 Cecilio A 80054.1.1 ity of 3.104.2.7 [place] .3.507470 Medica l .8 Branch 2021-03-05 2021-03-05 Telephone Andrade, 1.2.840.2 [id number] Univers 00:00:00 00:00:00 Cecilio A 43895.1.1 ity of 3.104.2.7 [place] .3.964197 Medica l .8 [place] 2021-03-05 2021-03-05 Telephone Andrade, 1.2.840.3 [id number] Univers 00:00:00 00:00:00 Cecilio A 25097.1.1 ity of 3.104.2.7 [place] .3.282402 Medica l .8 [place] 2021-03-05 2021-03-05 Telephone Andrade, 1.2.840.7 [id number] Univers 00:00:00 00:00:00 Cecilio A 34417.1.1 ity of 3.104.2.7 [place] .3.627542 Medica l .8 Branch 2021-03-01 2021-03-01 Transition Contreras, 1.2.840.7 [id number] Univers 00:00:00 00:00:00 of Care Loli M 84947.1.1 ity of 3.104.2.7 [place] .3.884771 Medica l .8 [place] 2021-03-01 2021-03-01 Refill Parish, 1.2.840.8 [id number] 197 Univers 00:00:00 00:00:00 Qiangjun 99503.1.1 ity of 3.104.2.7 [place] .3.741664 Medica l .8 Branch 2021-03-01 2021-03-01 Transition Contreras, 1.2.840.2 [id number] 87 [id number] Univers 00:00:00 00:00:00 of Care Loli M 11105.1.1 ity of 3.104.2.7 [place] .3.122876 Medica l .8 Branch 2021-03-01 2021-03-01 Refill Parish, 1.2.840.9 [id number] 197 Univers 00:00:00 00:00:00 Qiangjun 44514.1.1 ity of 3.104.2.7 [place] .3.059512 Medica l .8 Branch 2021-03-01 2021-03-01 Transition Contreras, 1.2.840.3 [id number] 87 [id number] Univers 00:00:00 00:00:00 of Care Loli M 00207.1.1 ity of 3.104.2.7 [place] .3.367669 Medica l .8 Branch 2021-03-01 2021-03-01 Refill Parish, 1.2.840.0 [id number] 197 Univers 00:00:00 00:00:00 Qiangjun 19715.1.1 ity of 3.104.2.7 [place] .3.044431 Medica l .8 Branch 2021-03-01 2021-03-01 Transition Contreras, 1.2.840.8 [id number] 87 [id number] Univers 00:00:00 00:00:00 of Care Loli M 74008.1.1 ity of 3.104.2.7 [place] .3.281352 Medica l .8 Branch 2021-03-01 2021-03-01 Refill Parish, 1.2.840.2 [id number] 197 Univers 00:00:00 00:00:00 Qiangjun 12397.1.1 ity of 3.104.2.7 [place] .3.940683 Medica l .8 Branch 2021-03-01 2021-03-01 Transition Contreras, 1.2.840.4 [id number] Univers 00:00:00 00:00:00 of Care Loli M 21522.1.1 ity of 3.104.2.7 [place] .3.759792 Medica l .8 Branch 2021-03-01 2021-03-01 Refill Parish, 1.2.840.7 [id number] 197 Univers 00:00:00 00:00:00 Qiangjun 76210.1.1 ity of 3.104.2.7 [place] .3.750441 Medica l .8 Branch 2021-02-26 2021-02-28 [facility] 1.2.840.9 [id number] Univers 19:48:00 16:26:00 Encounter Reardon, Alexander T 51786.1.1 ity of Paresh Conde Mohamed 3.1 04.2.7 [place] .3.181371 Medica l .8 Branch 2021-02-26 2021-02-28 [facility] 1.2.840.5 [id number] Univers 19:48:00 16:26:00 Encounter Reardon, Alexander T 44787.1.1 ity of Paresh Condemed Mohamed 3.1 04.2.7 [place] .3.697282 Medica l .8 Branch 2021-02-26 2021-02-28 [facility] 1.2.840.6 [id number] Univers 19:48:00 16:26:00 Encounter Reardon, Alexander T 61189.1.1 ity of Paresh Conde Mohamed 3.1 04.2.7 [place] .3.104135 Medica l .8 Branch 2021-02-26 2021-02-28 [facility] 1.2.840.5 [id number] Univers 19:48:00 16:26:00 Encounter Reardon, Alexander T 37875.1.1 ity of Paresh Condemed Mohamed 3.1 04.2.7 [place] .3.411460 Medica l .8 Branch 2021-02-26 2021-02-28 Inpatient X JOSSELINE, [facility] [id number] Univers 19:48:00 16:26:00 MOSTAFA ity of [facility] 2021-02-26 2021-02-28 [facility] 1.2.840.4 [id number] [id number] Univers 19:48:00 16:26:00 Encounter Reardon, Alexander T 24746.1.1 ity of Paresh Conde 3.1 04.2.7 [place] .3.161673 Medica l .8 Branch 2021-02-27 2021-02-27 Ochoa GRIFFITHS, [facility] [id number] Univers 10:40:00 10:40:00 TEJO ity of [facility] 2021-02-26 2021-02-26 Travel 1.2.840.1 1.2.280.439 1557 2014 Univers 00:00:00 00:00:00 00839.1.1 350.1.13.10 ity of 3.104.2.7 4.2.7.3.698 [place] .3.538297 084.8 Medica l .8 Branch 2021-02-26 2021-02-26 Travel 1.2.840.1 1.2.791.791 9759 2014 Univers 00:00:00 00:00:00 39422.1.1 350.1.13.10 ity of 3.104.2.7 4.2.7.3.698 [place] .3.478079 084.8 Medica l .8 Branch 2021-02-26 2021-02-26 Travel 1.2.840.1 1.2.638.748 3409 2014 Univers 00:00:00 00:00:00 51289.1.1 350.1.13.10 ity of 3.104.2.7 4.2.7.3.698 [place] .3.060103 084.8 Medica l .8 Branch 2021-02-26 2021-02-26 Travel 1.2.840.1 1.2.097.823 3783 2014 Univers 00:00:00 00:00:00 51212.1.1 350.1.13.10 ity of 3.104.2.7 4.2.7.3.698 [place] .3.673579 084.8 Medica l .8 Branch 2021-02-26 2021-02-26 Travel 1.2.840.1 1.2.414.259 3068 2014 Univers 00:00:00 00:00:00 81014.1.1 350.1.13.10 ity of 3.104.2.7 4.2.7.3.698 [place] .3.963496 084.8 Medica l .8 Branch 2021-02-20 2021-02-20 Office Noman, 1.2.840.2 [id number] 8603 [id number] Univers 13:53:10 15:44:35 Visit Aishat 94247.1.1 ity of [place] 3.104.2.7 [place] .3.298312 Medica l .8 Branch 2021-02-20 2021-02-20 Office Noman, 1.2.840.1 [id number] 8603 9242 Univers 13:53:10 15:44:35 Visit Aishat 46618.1.1 ity of [place] 3.104.2.7 [place] .3.126102 Medica l .8 Branch 2021-02-20 2021-02-20 Office Noman, 1.2.840.0 [id number] 8603 9242 Univers 13:53:10 15:44:35 Visit Aishat 17376.1.1 ity of [place] 3.104.2.7 [place] .3.209543 Medica l .8 Branch 2021-02-20 2021-02-20 Office Noman, 1.2.840.6 [id number] 8603 9242 Univers 13:53:10 15:44:35 Visit Aishat 48304.1.1 ity of [place] 3.104.2.7 [place] .3.561708 Medica l .8 Branch 2021-02-20 2021-02-20 Outpatient R NOMAN, [facility] [id number] Univers 14:15:00 14:15:00 AISHAT ity of [facility] 2021-02-20 2021-02-20 Travel 1.2.840.1 1.2.213.145 3665 0294 [facility] 00:00:00 00:00:00 39151.1.1 350.1.13.10 ity of 3.104.2.7 4.2.7.3.698 [place] .3.909282 084.8 Medica l .8 Branch 2021-02-20 2021-02-20 Travel 1.2.840.1 1.2.763.956 7179 0294 Univers 00:00:00 00:00:00 47230.1.1 350.1.13.10 ity of 3.104.2.7 4.2.7.3.698 [place] .3.720303 084.8 Medica l .8 Branch 2021-02-20 2021-02-20 Travel 1.2.840.1 1.2.221.609 9940 0294 Univers 00:00:00 00:00:00 90895.1.1 350.1.13.10 ity of 3.104.2.7 4.2.7.3.698 [place] .3.785610 084.8 Medica l .8 [place] 2021-02-20 2021-02-20 Travel 1.2.840.1 1.2.008.916 0790 0294 Univers 00:00:00 00:00:00 06353.1.1 350.1.13.10 ity of 3.104.2.7 4.2.7.3.698 [place] .3.934361 084.8 Medica l .8 [place] 2021-02-19 2021-02-19 Office Lulú [place] 1.2.840.4 [id number] Univers 16:18:20 16:48:20 Visit N 61168.1.1 ity of 3.104.2.7 [place] .3.915288 Medica l .8 [place] 2021-02-19 2021-02-19 Office Lulú [place] 1.2.840.5 [id number] Univers 16:18:20 16:48:20 Visit N 68920.1.1 ity of 3.104.2.7 [place] .3.827777 Medica l .8 [place] 2021-02-19 2021-02-19 Office Lulú [place] 1.2.840.8 [id number] Univers 16:18:20 16:48:20 Visit N 20288.1.1 ity of 3.104.2.7 [place] .3.570077 Medica l .8 Branch 2021-02-19 2021-02-19 Office AyushLulú calderon [facility] 1.2.840.114 81 [id number] Univers 16:18:20 16:48:20 Visit N Health 350.1.13.10 it y of [place] 4.2.7.2.686 [place] cal[place] Meraz 460.7865984 [facility][note 3] 059 Branch Office Building 2021-02-19 2021-02-19 Office AyushLulú calderon 1.2.840.5 [id number] Univers 16:18:20 16:48:20 Visit N 16792.1.1 ity of 3.104.2.7 [place] .3.526556 Medica l .8 [place] 2021-02-19 2021-02-19 Outpatient R LULÚ LANCASTER [facility] [id number] [id number] Univers 16:30:00 16:30:00 ity of [facility] 2021-02-19 2021-02-19 Orders Doctor 1.2.840.6 [id number] 08857 096 Univers 00:00:00 00:00:00 Only Unassigned, 38292.1.1 ity of [place] 3.104.2.7 [place] .3.018181 Medica l .8 [place] 2021-02-19 2021-02-19 Orders Doctor 1.2.840.9 [id number] 09823 096 Univers 00:00:00 00:00:00 Only Unassigned, 67528.1.1 ity of [place] 3.104.2.7 [place] .3.190071 Medica l .8 Branch 2021-02-19 2021-02-19 Orders Doctor 1.2.840.1 [id number] 096 Univers 00:00:00 00:00:00 Only Unassigned, 83883.1.1 ity of [place] 3.104.2.7 [place] .3.963732 Medica l .8 Branch 2021-02-12 2021-02-12 Refill Lupe, 1.2.840.2 [id number] Univers 00:00:00 00:00:00 Cecilio A 38396.1.1 ity of 3.104.2.7 [place] .3.203475 Medica l .8 Branch 2021-02-12 2021-02-12 Refill Andrade, 1.2.840.0 [id number] Univers 00:00:00 00:00:00 Cecilio A 90154.1.1 ity of 3.104.2.7 [place] .3.851695 Medica l .8 Branch 2021-02-12 2021-02-12 Refill Andrade, 1.2.840.0 [id number] Univers 00:00:00 00:00:00 Cecilio A 73724.1.1 ity of 3.104.2.7 [place] .3.563985 Medica l .8 [place] 2021-02-12 2021-02-12 Refill Andrade, 1.2.840.2 [id number] Univers 00:00:00 00:00:00 Cecilio A 01092.1.1 ity of 3.104.2.7 [place] .3.540237 Medica l .8 [place] 2021-02-06 2021-02-06 Outpatient Toan HERRERA, [facility] [id number] Univers 09:00:00 09:00:00 FLORENCE ity of [facility] 2021-02-05 2021-02-06 Telemedici Andrade, 1.2.840.2 [id number] Univers 14:43:20 08:15:15 ne Visit Cecilio Payne 88663.1.1 ity of 3.104.2.7 [place] .3.355320 Medica l .8 Branch 2021-02-05 2021-02-06 Telemedici Andrade, 1.2.840.3 [id number] Univers 14:43:20 08:15:15 ne Visit Cecilio A 37521.1.1 ity of 3.104.2.7 [place] .3.750138 Medica l .8 Branch 2021-02-05 2021[facility]02[facility] 1.2.840.2 [id number] Univers 14:43:20 08:15:15 ne Visit Cecilio Payne 20205.1.1 ity of 3.104.2.7 [place] .3.559424 Medica l .8 [place] 2021-02-05 2021-02-06 [facility] Andrade, 1.2.840.2 [id number] Univers 14:43:20 08:15:15 ne Visit Cecilio Payne 33145.1.1 ity of 3.104.2.7 [place] .3.224025 Medica l .8 [place] 2021-02-06 2021-02-06 Travel 1.2.840.1 1.2.202.255 1597 2788 Univers 00:00:00 00:00:00 53374.1.1 350.1.13.10 ity of 3.104.2.7 [place].3.698 [place] .3.920468 084.8 Medica l .8 [place] 2021-02-06 2021-02-06 Travel 1.2.840.1 1.2.482.496 2765 2788 Univers 00:00:00 00:00:00 50125.1.1 350.1.13.10 ity of 3.104.2.7 4.[place]7.3.698 [place] .3.125778 084.8 Medica l .8 [place] 2021-02-06 2021-02-06 Travel 1.2.840.1 1.2.659.156 0505 2788 Univers 00:00:00 00:00:00 23888.1.1 350.1.13.10 ity of 3.104.2.7 4.[place]7.3.698 [place] .3.650982 084.8 Medica l .8 [place] 2021-02-06 2021-02-06 Travel 1.2.840.1 1.2.959.765 0265 2788 Univers 00:00:00 00:00:00 60237.1.1 350.1.13.10 ity of 3.104.2.7 4.[place]7.3.698 [place] .3.383054 084.8 Medica l .8 [place] 2021-02-05 2021-02-05 Outpatient R LUPE [facility] [id number] Univers 15:40:00 15:40:[address] [facility] 2021-01-25 2021-01-25 Outpatient R JAME KIESHA [facility] [id number] Univers 12:45:00 12:45:00 ity of [facility] 2021-01-25 2021-01-25 Travel 1.2.840.1 1.2.783.672 1857 2502 [facility] 00:00:00 00:00:00 97905.1.1 350.1.13.10 ity of 3.104.2.7 4.[place].7.3.698 [place] .3.795564 084.8 Medica l .8 [place] 2021-01-25 2021-01-25 Travel 1.2.840.1 1.2.745.270 1860 2502 [facility] 00:00:00 00:00:00 03239.1.1 350.1.13.10 ity of 3.104.2.7 4.2[place]7.3.698 [place] .3.124274 084.8 Medica l .8 [place] 2021-01-25 2021-01-25 Travel 1.2.840.1 1.2.301.[address] [place] [address] 00:00:00 00:00:00 57886.1.1 350.1.13.10 ity of 3.104.2.7 4.[place]7.3.698 [place] .3.219525 084.8 Medica l .8 [place] 2021-01-23 2021-01-23 [facility] [id number] Univers 10:00:00 10:00:[address] [facility] 2021-01-21 2021-01-21 Linda Adkins, 1.2.840.2 [id number] Univers 00:00:00 00:00:00 [place] 49693.1.1 ity of [place] 3.104.2.7 [place] .3.541928 Medica l .8 Branch 2021-01-21 2021-01-21 Refill Khalife, 1.2.840.8 [id number] Univers 00:00:00 00:00:00 [place] 15315.1.1 ity of [place] 3.104.2.7 [place] .3.948801 Medica l .8 Branch 2021-01-21 2021-01-21 Refill Khalife, 1.2.840.6 [id number] Univers 00:00:00 00:00:00 [place] 15664.1.1 ity of [place] 3.104.2.7 [place] .3.419671 Medica l .8 Branch 2021-01-09 2021-01-09 Outpatient Toan HERRERA [facility] [id number] Univers 10:00:00 10:00:00 FLORENCE ity of [facility] 2021-01-09 2021-01-09 Travel 1.2.840.1 1.2.473.903 9030 7131 Univers 00:00:00 00:00:00 88981.1.1 350.1.13.10 ity of 3.104.2.7 4.[place].7.3.698 [place] .3.122402 084.8 Medica l .8 Branch 2021-01-09 2021-01-09 Travel 1.2.840.1 1.2.337.650 1428 7131 Univers 00:00:00 00:00:00 44281.1.1 350.1.13.10 ity of 3.104.2.7 4.2.7.3.698 [place] .3.942152 084.8 Medica l .8 Branch 2021-01-09 2021-01-09 Travel 1.2.840.1 1.2.864.407 5872 7131 Univers 00:00:00 00:00:00 47535.1.1 350.1.13.10 ity of 3.104.2.7 4.2.7.3.698 [place] .3.742017 084.8 Medica l .8 [facility] 2021-01-08 2021-01-08 Refill Jones, 1.2.840.3 [id number] 195 Univers 00:00:00 00:00:00 [place] 29090.1.1 ity of 3.104.2.7 [place] .3.094950 Medica l .8 Branch 2021-01-08 2021-01-08 Refill Jones, 1.2.840.8 [id number] Univers 00:00:00 00:00:00 [place] 05927.1.1 ity of 3.104.2.7 [place] .3.124739 Medica l .8 Branch 2021-01-08 2021-01-08 Refill Jones, 1.2.840.8 [id number] 195 Univers 00:00:00 00:00:00 [place] 97452.1.1 ity of 3.104.2.7 [place] .3.063357 Medica l .8 Branch 2021-01-01 2021-01-01 Orders Doctor 1.2.840.1 [id number] Univers 00:00:00 00:00:00 Only Unassigned, 48600.1.1 ity of [place] 3.104.2.7 [place] .3.795536 Medica l .8 [place] 2021-01-01 2021-01-01 Orders Doctor 1.2.840.6 [id number] Univers 00:00:00 00:00:00 Only Unassigned, 35998.1.1 ity of [place] 3.104.2.7 [place] .3.919853 Medica l .8 [place] 2020-12-28 2020-12-28 Outpatient KIESHA CONTI [facility] [id number] Univers 12:45:00 12:45:00 ity of [facility] 2020-12-28 2020-12-28 Travel 1.2.840.1 1.2.422.154 3076 8455 Univers 00:00:00 00:00:00 15905.1.1 350.1.13.10 ity of 3.104.2.7 4.[place]7.3.698 [place] .3.870338 084.8 [place]ica l .8 [place] 2020-12-28 2020-12-28 Travel 1.2.840.1 1.2.482.571 2372 8455 Univers 00:00:00 00:00:00 62804.1.1 350.1.13.10 ity of 3.104.2.7 4.2[place]7.3.698 [place] .3.834812 084.8 Medica l .8 [place] 2020-12-14 2020-12-14 [facility], 1.2.840.4 [id number] Univers 09:56:34 23:59:00 Encounter Cecilio A 68466.1.1 ity of 3.104.2.7 [place] .3.208811 Medica l .8 [place] 2020-12-14 2020-12-14 Outpatient R ANDRADE, [facility] [id number] Univers 09:56:34 23:59:[address] [facility] 2020-12-14 2020-12-14 [facility] [id number] Univers 09:56:34 23:59:[address] [facility] 2020-12-14 2020-12-14 Outpatient R ANDRADE, [facility] [id number] Univers 09:56:34 23:59:00 CECILIO ity of [facility] 2020-12-14 2020-12-14 [facility] [id number] Univers 09:56:34 23:59:[address] [facility] 2020-12-14 2020-12-14 Outpatient R ANDRADE, [facility] 1033 [id number] Univers 09:56:34 23:59:[address] [facility] 2020-12-14 2020-12-14 [facility] 1.2.840.3 [id number] Univers 09:56:34 23:59:00 Encounter Cecilio Payne 94744.1.1 ity of 3.104.2.7 [place] .3.410428 Medica l .8 [place] 2020-12-12 2020-12-12 Outpatient Toan CARPIOHERRERA [facility] [id number] Univers 15:00:00 15:00:00 FLORENCE ity of [facility] 2020-12-11 2020-12-11 Telephone [place], 1.2.840.2 [id number] Univers 00:00:00 00:00:00 Wissam 67479.1.1 ity of [place] 3.104.2.7 [place] .3.437856 Medica l .8 [facility] 2020-12-11 2020-12-11 Telephone Sindy, 1.2.840.3 [id number] Univers 00:00:00 00:00:00 Wissam 51983.1.1 ity of [place] 3.104.2.7 [place] .3.992103 Medica l .8 [place] 2020-12-05 2020-12-05 Patient Noman, 1.2.840.5 [id number] Univers 00:00:00 00:00:00 Secure Msg Aishat 02266.1.1 i ty of [place] 3.104.2.7 [place] .3.463350 Medica l .8 [facility] 2020-12-05 2020-12-05 Travel 1.2.840.1 1.2.480.702 5597 [id number] Univers 00:00:00 00:00:00 44861.1.1 350.1.13.10 ity of 3.104.2.7 [place].3.698 [place].3822[place] 084.8 Medica l .8 [facility] 2020-12-05 2020-12-05 Patient Noman, 1.2.840.5 [id number] Univers 00:00:00 00:00:00 Secure Msg Aishat 71376.1.1 i ty of [place] 3.104.2.7 [place] .3.532980 Medica l .8 [place] 2020-12-05 2020-12-05 Travel 1.2.840.1 1.2.562.220 0094 [id number] Univers 00:00:00 00:00:00 19307.1.1 350.1.13.10 ity of 3.104.2.7 [place]7.3.698 [place].7712[place] 084.8 Medica l .8 [place] 2020-12-04 2020-12-04 Outpatient R LUPE, [facility] 1032 [id number] Univers 15:00:00 15:00:00 CECILIO ity of [facility] 2020-12-04 2020-12-04 Telemedici Lupe, 1.2.840.6 [id number] Univers 08:37:58 08:52:58 ne Visit Cecilio Payne 99474.1.1 ity of 3.104.2.7 [place] .3.606537 Medica l .8 [facility] 2020-12-04 2020-12-04 Telemedici Lupe, 1.2.840.7 [id number] Univers 08:37:58 08:52:58 ne Visit Cecilio Payne 05097.1.1 ity of 3.104.2.7 [place] .3.174266 Medica l .8 [facility] 2020-11-30 2020-11-30 [facility] 1.2.840.8 [id number] Univers 09:55:22 23:59:00 Encounter Ho burks 94563.1.1 ity of 3.104.2.7 [place] .3.747172 Medica l .8 [facility] 2020-11-30 2020-11-30 [facility] 1.2.840.8 [id number] Univers 09:55:22 23:59:00 Encounter Ho burks 82980.1.1 ity of 3.104.2.7 [place] .3.977293 Medica l .8 [place] 2020-11-30 2020-11-30 Outpatient R SILVERIO [facility] 117 [id number] Univers 10:15:00 10:15:00 HO BURKS y of [facility] 2020-11-30 2020-11-30 Outpatient R SILVERIO [facility] [id number] Univers 10:15:00 10:15:00 HO BURKS y of [facility] 2020-11-30 2020-11-30 Travel 1.2.840.1 1.2.738.669 [id number] [id number] Univers 00:00:00 00:00:00 63093.1.1 350.1.13.10 ity of 3.104.2.7 4.[place].7.3.698 [place] .[place].862137 084.8 [place] l .8 [place] 2020-11-30 2020-11-30 Travel 1.2.840.1 1.2.963.565 0916 0989 Univers 00:00:00 00:00:00 38116.1.1 350.1.13.10 ity of 3.104.2.7 4.[place].7.3.698 [place] .3.064397 084.8 Medica l .8 [facility] 2020-11-28 2020-11-28 Transition Alvin, 1.2.840.5 [id number] Univers 00:00:00 00:00:00 of Care Angelique Arroyo 85866.1.1 ity of 3.104.2.7 [place] .3.416199 Medica l .8 [facility] 2020-11-25 2020-11-26 Emergency Brady Dumont 1.2.840.1 10 [id number] Univers 19:14:00 11:55:00 Jose Martin Reece 57724.1.1 ity of 3.104.2.7 [place] .3.388627 Medica l .8 [facility] 2020-11-25 2020-11-25 Travel 1.2.840.1 1.2.755.813 5339 [id number] Univers 00:00:00 00:00:00 11685.1.1 350.1.13.10 ity of 3.104.2.7 4.2.7.3.698 [place] .3.297253 084.8 Med[place] l .8 [place] 2020-11-24 2020-11-24 Outpatient Toan HERRERA [facility] [id number] Univers 11:00:00 11:00:00 FLORENCE ity of [facility] 2020-11-23 2020-11-23 Outpatient Toan HERRERA [facility] [id number] Univers 14:00:00 14:00:[address] [facility] 2020-11-23 2020-11-23 Travel 1.2.840.1 1.2.114.553 3520 [id number] Univers 00:00:00 00:00:00 47611.1.1 350.1.13.10 ity of 3.104.2.7 4.2.7.3.698 [place]3.816931 084.8 Medica l .8 [place] 2020-11-16 2020-11-16 Outpatient KIESHA CONTI [facility] [id number] Univers 12:45:00 12:45:00 ity of [facility] 2020-11-16 2020-11-16 Telephone Andrade, 1.2.840.8 [id number] Univers 00:00:00 00:00:00 Cecilio Payne 60029.1.1 ity of 3.104.2.7 [place] .3.934290 Medica l .8 [place] 2020-11-16 2020-11-16 Patient Merwat, 1.2.840.5 [id number] Univers 00:00:00 00:00:00 Secure Msg Rocíoyar 50103.1.1 ity of 3.104.2.7 [place] .3.808546 Medica l .8 [place] 2020-11-15 2020-11-15 Refill Merwat, 1.2.840.1 [id number] Univers 00:00:00 00:00:00 Sheharyar 82688.1.1 it y of 3.104.2.7 [place] .3.514933 Medica l .8 [place] 2020-11-14 2020-11-14 Patient Lupe, 1.2.840.3 [id number] Univers 00:00:00 00:00:00 Secure Msg Cecilio Payne 89819.1.1 ity of 3.104.2.7 [place] .3.802281 Medica l .8 [place] 2020-11-08 2020-11-08 Refill Jones, 1.2.840.2 [id number] Univers 00:00:00 00:00:00 Wentong 78723.1.1 ity of 3.104.2.7 [place] .3.847135 Medica l .8 [place] 2020-11-07 2020-11-07 Office Jones, 1.2.840.2 [id number] Univers 14:02:12 14:48:30 Visit Zhen 28432.1.1 ity of 3.104.2.7 [place] .3.832236 Medica l .8 [place] 2020-11-07 2020-11-07 Outpatient R ROBERT, [facility] [id number] Univers 14:00:00 14:00:00 WENTONG ity of [facility] 2020-11-07 2020-11-07 Telephone Sindy, 1.2.840.5 [id number] Univers 00:00:00 00:00:00 Wissam 11224.1.1 ity of [place] 3.104.2.7 [place] .3.760107 Medica l .8 [place] 2020-11-07 2020-11-07 Travel 1.2.840.1 1.2.061.766 3168 8453 Univers 00:00:00 00:00:00 53706.1.1 350.1.13.10 ity of 3.104.2.7 4.2.7.3.698 [place]3.060533 084.8 Medica l .8 [place] 2020-11-07 2020-11-07 Orders Doctor 1.2.840.6 [id number] Univers 00:00:00 00:00:00 Only Unassigned, 33757.1.1 ity of [place] 3.104.2.7 [place] .3.769867 Medica l .8 [place] 2020-10-26 2020-10-26 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 Robbin Griffiths 1.2.840.3 [id number] Univers 15:33:54 15:48:54 Visit Pob, Adc Lab Main 09057.1.1 ity of 3.104.2.7 [place] .3.319187 Medica l .8 [place] 2020-10-26 2020-10-26 Outpatient R [facility] [id number] Univers 15:45:00 15:45:[address] [facility] 2020-10-26 2020-10-26 Outpatient R HERRERA, [facility] [id number] Univers 13:00:00 13:00:[address] [facility] 2020-10-26 2020-10-26 Outpatient R HERRERA, [facility] [id number] Univers 13:00:00 13:00:[address] [place] [address] [facility] 2020-10-26 2020-10-26 Outpatient R HERRERA, [facility] [id number] Univers 13:00:00 13:00:00 [facility] 2020-10-26 2020-10-26 Orders Doctor 1.2.840.2 [id number] Univers 00:00:00 00:00:00 Only Unassigned, 36433.1.1 ity of [place] 3.104.2.7 [place] .3.934182 Medica l .8 [place] 2020-10-26 2020-10-26 Travel 1.2.840.1 1.2.010.459 5951 [id number] Univers 00:00:00 00:00:00 60336.1.1 350.1.13.10 ity of 3.104.2.7 4.2.7.3.698 [place] .3.247888 084.8 Med[place] l .8 [place] 2020-10-25 2020-10-25 Telephone Sindy, 1.2.840.1 [id number] Univers 00:00:00 00:00:00 Wissam 09701.1.1 ity of [place] 3.104.2.7 [place] .3.610742 Medica l .8 Branch 2020-10-24 2020-10-24 Outpatient R SINDY, [facility] [id number] Univers 14:00:00 14:14:03 WISSAM ity of [facility] 2020-10-24 2020-10-24 Outpatient R SINDY, [facility] [id number] Univers 14:00:00 14:14:03 WISSAM ity of [facility] 2020-10-24 2020-10-24 Outpatient R RAVENDEVAN, [facility] [id number] Univers 14:00:00 14:14:03 WISSA ity of [facility] 2020-10-24 2020-10-24 Office Khalife, 1.2.840.6 [id number] Univers 13:31:57 14:14:03 Visit Wism 35342.1.1 ity of [place] 3.104.2.7 [place] .3.541402 Medica l .8 [place] 2020-10-20 2020-10-20 Refill Khalife, 1.2.840.7 [id number] Univers 00:00:00 00:00:00 Wissam 78845.1.1 ity of [place] 3.104.2.7 [place] .3.743703 Medica l .8 [place] 2020-10-19 2020-10-19 Refill Parish, 1.2.840.6 [id number] Univers 00:00:00 00:00:00 Bradjun 32802.1.1 ity of 3.104.2.7 [place] .3.369466 Medica l .8 [place] 2020-10-12 2020-10-12 Outpatient R JAME, KIESHA [facility] [id number] Univers 13:30:00 13:30:00 ity of [facility] 2020-10-09 2020-10-09 Refill Robert, 1.2.840.9 [id number] Univers 00:00:00 00:00:00 Wentong 03963.1.1 ity of 3.104.2.7 [place] .3.278843 Medica l .8 [place] 2020-10-09 2020-10-09 Refottoniel Bebemigue, 1.2.840.4 [id number] Univers 00:00:00 00:00:00 Ioana 10551.1.1 it y of 3.104.2.7 [place] .3.888089 Medica l .8 [place] 2020-10-02 2020-10-02 [id number] Univers 16:20[facility] 2020-10-02 2020-10-02 [id number] Univers 16:20:00 16:43:29 [facility] 2020-10-02 2020-10-02 [id number] Univers 16:20:00 16:43:29 [facility] 2020-10-02 2020-10-02 Telemedici Andrade, 1.2.840.0 [id number] Univers 08:06:02 16:43:29 ne Visit Cecilio A 30461.1.1 ity of 3.104.2.7 [place] .3.536854 Medica l .8 [place] 2020-10-02 2020-10-02 Transition Alvin, 1.2.840.8 [id number] Univers 00:00:00 00:00:00 of Care Angelique Dina 37092.1.1 ity of 3.104.2.7 [place] .3.983248 Medica l .8 [place] 2020-09-28 2020-09-29 Emergency Nick Palomino 1.2.840.5 [id number] Univers 13:20:00 15:04:00 Thaddeus Interiano 02303.1.1 ity of 3.104.2.7 [place] .3.913761 Medica l .8 Branch 2020-09-28 2020-09-28 Travel 1.2.840.1 1.2.190.588 0445 [id number] Univers 00:00:00 00:00:00 92513.1.1 350.1.13.10 ity of 3.104.2.7 4.2.7.3.698 [place] .3.911527 084.8 Medica l .8 [place] 2020-09-21 2020-09-21 Outpatient R JAVIER, [facility] [id number] Univers 09:00:00 09:00:[address] [facility] 2020-09-14 2020-09-14 Outpatient R TRACEY FIDEL [facility] [id number] Univers 09:15:00 09:15:00 ity of [facility] 2020-09-12 2020-09-12 Outpatient R [facility] [id number] Univers 09:00:00 09:00:[address] [facility] 2020-09-07 2020-09-07 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 Nima Patterson 1.2.840.2 [id number] Univers 11:42:54 11:57:54 Visit Draw, Clc-Bls Lab 38976.1.1 ity of 3.104.2.7 [place] .3.530675 Medica l .8 [place] 2020-09-07 2020-09-07 Office Tan, 1.2.840.6 [id number] Univers 10:46:47 11:31:47 Visit Nima 19298.1.1 ity of [place] 3.104.2.7 [place] .3.707001 Medica l .8 [place] 2020-09-07 2020-09-07 Outpatient R TAN, [facility] [id number] Univers 11:00:00 11:00:[address] [facility] 2020-09-07 2020-09-07 Outpatient R TAN, [facility] [id number] Univers 11:00:00 11:00:[address] [facility] 2020-09-05 2020-09-05 Patient Denzel, 1.2.840.8 [id number] Univers 00:00:00 00:00:00 Outreach Armand 37913.1.1 ity of Daniel 3.104.2.7 [place] .3.336366 Medica l .8 Branch 2020-09-04 2020-09-04 Refill Andrade, 1.2.840.9 [id number] Univers 00:00:00 00:00:00 Cecilio A 63250.1.1 ity of 3.104.2.7 [place] .3.203674 Medica l .8 [facility] 2020-09-04 2020-09-04 Refill Andrade, 1.2.840.4 [id number] Univers 00:00:00 00:00:00 Cecilio A 42675.1.1 ity of 3.104.2.7 [place] .3.811410 Medica l .8 [place] 2020-09-04 2020-09-04 Patient Doctor 1.2.840.1 [id number] Univers 00:00:00 00:00:00 Secure Msg Unassigned, 83898.1.1 ity of [place] 3.104.2.7 [place] .3.437553 Medica l .8 [place] 2020-08-31 2020-08-31 Outpatient R SINDY [facility] [id number] Univers 09:00:00 09:00:00 KRYSTINA ity of [facility] 2020-08-31 2020-08-31 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 Krystina Adkins 1.2.840 .2 [id number] Univers 08:44:32 08:59:32 Visit 2, Adc Lab 74269.1.1 i ty of 3.104.2.7 [place] .3.320680 Medica l .8 [facility] 2020-08-31 2020-08-31 Telephone Chevy Adkins.2.840.1 [id number] Univers 00:00:00 00:00:00 Krystina 15606.1.1 ity of [place] 3.104.2.7 [place] .3.376904 Medica l .8 [place] 2020-08-31 2020-08-31 Travel 1.2.840.1 1.2.850.866 9190 [id number] Univers 00:00:00 00:00:00 78221.1.1 350.1.13.10 ity of 3.104.2.7 4.2.7.3.698 [place] .3.486701 084.8 Medica l .8 [facility] 2020-08-29 2020-08-29 Outpatient R AYE [facility] [id number] Univers 09:40:00 09:40:00 TEJO ity of [facility] 2020-08-29 2020-08-29 Telemedici Aye, 1.2.840.5 [id number] Univers 09:14:53 09:34:53 ne Visit Tejo 92308.1.1 ity of 3.104.2.7 [place] .3.032033 Medica l .8 [facility] 2020-08-28 2020-08-28 Telephone Sindy, 1.2.840.6 [id number] Univers 00:00:00 00:00:00 Wissam 01224.1.1 ity of [place] 3.104.2.7 [place] .3.891548 Medica l .8 [facility] 2020-08-28 2020-08-28 Transition Juan, 1.2.840.8 [id number] Univers 00:00:00 00:00:00 of Care Miles A 49742.1.1 it y of 3.104.2.7 [place] .3.191146 Medica l .8 [facility] 2020-08-25 2020-08-26 Emergency Nick Palomino 1.2.840.6 [id number] Univers 05:24:00 20:05:00 Yifan Romero 89448.1.1 ity of 3.104.2.7 [place] .3.189741 Medica l .8 [facility] 2020-08-25 2020-08-25 Travel 1.2.840.1 1.2.328.862 9847 [id number] Univers 00:00:00 00:00:00 46628.1.1 350.1.13.10 ity of 3.104.2.7 4.2.7.3.698 [place] .3.141427 084.8 Medica l .8 [place] 2020-08-24 2020-08-24 Outpatient Toan HERRERA, [facility] [id number] Univers 10:00:00 12:11:[address] [facility] 2020-08-24 2020-08-24 [facility] [id number] Univers 10:00:00 10:00:[address] [facility] 2020-08-24 2020-08-24 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 Cecilio Andrade 1.2.840. 7 [id number] Univers 08:29:50 08:44:50 Visit 2, Adc Lab 43762.1.1 i ty of 3.104.2.7 [place] .3.471288 Medica l .8 [place] 2020-08-24 2020-08-24 Telephone Vincent, 1.2.840.2 [id number] Univers 00:00:00 00:00:00 Renate Pickens 71211.1.1 i ty of 3.104.2.7 [place] .3.179989 Medica l .8 [place] 2020-08-22 2020-08-22 Refill Parish, 1.2.840.6 [id number] Univers 00:00:00 00:00:00 Al 58132.1.1 ity of 3.104.2.7 [place] .3.060175 Medica l .8 [place] 2020-08-20 2020-08-20 Orders Doctor 1.2.840.8 [id number] Univers 00:00:00 00:00:00 Only Unassigned, 40713.1.1 ity of [place] 3.104.2.7 [place] .3.984156 Medica l .8 [place] 2020-08-17 2020-08-17 Emergency Lala, 1.2.840.7 [id number] Univers 14:21:00 15:56:00 Socorro Calderon 21860.1.1 ity of 3.104.2.7 [place] .3.695749 Medica l .8 Branch 2020-08-17 2020-08-17 Outpatient R JAVIER [facility] [id number] Univers 15:00:00 15:00:00 [place]OR[place] ity of [facility] 2020-08-17 2020-08-17 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 Dennise Adkinsteena Lopezim 1.2.840 .7 [id number] Univers 11:35:23 11:50:23 Visit Pob, Adc Lab Main 46445.1.1 ity of 3.104.2.7 [place] .3.549504 Medica l .8 Branch 2020-08-17 2020-08-17 Telephone Florian, 1.2.840.3 [id number] Univers 00:00:00 00:00:00 Renateerin Pickens 30510.1.1 i ty of 3.104.2.7 [place] .3.466015 Medica l .8 Branch 2020-08-17 2020-08-17 Travel 1.2.840.1 1.2.918.998 5128 8300 Univers 00:00:00 00:00:00 40524.1.1 350.1.13.10 ity of 3.104.2.7 4.2.7.3.698 [place] .3.363545 084.8 Medica l .8 [place] 2020-08-17 2020-08-17 Telephone Luis Angelcaitlyn, 1.2.840.2 [id number] Univers 00:00:00 00:00:00 Krystina 82089.1.1 ity of [place] 3.104.2.7 [place] .3.568437 Medica l .8 Branch 2020-08-14 2020-08-14 Office Lulú [place] 1.2.840.9 [id number] Univers 16:16:54 16:46:54 Visit N 50023.1.1 ity of 3.104.2.7 [place] .3.499451 Medica l .8 [facility] 2020-08-14 2020-08-14 Outpatient R LULÚ LANCASTER [facility] [id number] Univers 16:00:00 16:00:00 ity of [facility] 2020-08-14 2020-08-14 Travel 1.2.840.1 1.2.874.487 0695 [id number] Univers 00:00:00 00:00:00 17817.1.1 350.1.13.10 ity of 3.104.2.7 4.2.7.3.698 [place] .3.348927 084.8 Medica l .8 [place] 2020-08-14 2020-08-14 Refill Doctor 1.2.840.9 [id number] Univers 00:00:00 00:00:00 Unassigned, 97790.1.1 ity of [place] 3.104.2.7 [place] .3.110440 Medica l .8 [place] 2020-08-08 2020-08-08 Telephone Florian, 1.2.840.8 [id number] Univers 00:00:00 00:00:00 Renate Pickens 00560.1.1 i ty of 3.104.2.7 [place] .3.456463 Medica l .8 [place] 2020-08-03 2020-08-03 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 rKystina Adkins 1.2.840 .5 [id number] Univers 09:04:47 09:19:47 Visit 1, Adc Lab 66831.1.1 i ty of 3.104.2.7 [place] .3.335276 Medica l .8 [place] 2020-08-03 2020-08-03 Outpatient R SINDY [facility] [id number] Univers 09:00:00 09:00:00 KRYSTINA ity of [facility] 2020-08-03 2020-08-03 Orders Doctor 1.2.840.3 [id number] Univers 00:00:00 00:00:00 Only Unassigned, 82589.1.1 ity of [place] 3.104.2.7 [place] .3.420591 Medica l .8 [place] 2020-08-03 2020-08-03 Travel 1.2.840.1 1.2.007.873 3611 5612 Univers 00:00:00 00:00:00 84957.1.1 350.1.13.10 ity of 3.104.2.7 4.2.7.3.698 [place] .3.270397 084.8 Medica l .8 [place] 2020-07-27 2020-07-27 Outpatient R JAVIER [facility] [id number] Univers 14:00:00 14:00:00 FLORENCE [facility] 2020-07-25 2020-07-25 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 Renate Florian 1.2.840.6 [id number] Univers 11:45:14 12:00:14 Visit Clemente, Mehdi Lab Main 18317.1.1 ity of 3.104.2.7 [place] .3.039055 Medica l .8 [place] 2020-07-25 2020-07-25 Office Vincent 1.2.840.8 [id number] Univers 09:20:51 10:12:27 Visit Renate Pickens 78918.1.1 i ty of 3.104.2.7 [place] .3.187539 Medica l .8 [place] 2020-07-25 2020-07-25 Outpatient R VINCENT [facility] [id number] Univers 09:30:00 09:30:00 RENATE [facility] 2020-07-25 2020-07-25 Travel 1.2.840.1 1.2.077.527 3437 [id number] Univers 00:00:00 00:00:00 81807.1.1 350.1.13.10 ity of 3.104.2.7 4.2.7.3.698 [place] .3.878922 084.8 Medica l .8 [place] 2020-07-19 2020-07-19 Outpatient R ANNABELLA [facility] [id number] Univers 14:30:00 14:30:00 BANDAR resendiz f [facility] 2020-07-17 2020-07-17 Outpatient R LULÚ LANCASTER [facility] [id number] Univers 09:00:00 09:00:[address] [facility] 2020-07-14 2020-07-14 Outpatient R LUPE, [facility] [id number] Univers 14:20:00 14:20:00 CECILIO ity of [facility] 2020-07-05 2020-07-05 Telephone Jones, 1.2.840.9 [id number] Univers 00:00:00 00:00:00 Wentong 29924.1.1 ity of 3.104.2.7 [place] .3.421931 Medica l .8 [place] 2020-07-05 2020-07-05 Orders Doctor 1.2.840.7 [id number] Univers 00:00:00 00:00:00 Only Unassigned, 19216.1.1 ity of [place] 3.104.2.7 [place] .3.209080 Medica l .8 [place] 2020-06-29 2020-06-29 Patient Jones, 1.2.840.1 [id number] Univers 00:00:00 00:00:00 Secure Msg Wentong 66734.1.1 i ty of 3.104.2.7 [place] .3.426005 Medica l .8 [place] 2020-06-29 2020-06-29 Patient Jones, 1.2.840.8 [id number] Univers 00:00:00 00:00:00 Secure Msg Wentong 58663.1.1 i ty of 3.104.2.7 [place] .3.131559 Medica l .8 [place] 2020-06-29 2020-06-29 Telephone Jones, 1.2.840.7 [id number] [id number] Univers 00:00:00 00:00:00 Wentong 13239.1.1 ity of 3.104.2.7 [place] .3.191844 Medica l .8 [place] 2020-06-28 2020-06-28 Patient Mus[place], 1.2.840.3 [id number] [id number] Univers 00:00:00 00:00:00 Secure Msg Tejo 65563.1.1 i ty of 3.104.2.7 [place] .3.376338 Medica l .8 [place] 2020-06-27 2020-06-27 Office Jones, 1.2.840.6 [id number] Univers 10:21:37 11:54:14 Visit Zhen 26251.1.1 ity of 3.104.2.7 [place] .3.931479 Medica l .8 [place] 2020-06-27 2020-06-27 Outpatient R ROBERT, [facility] [id number] Univers 10:30:00 10:30:00 NILTONONG ity of [facility] 2020-06-27 2020-06-27 Orders Doctor 1.2.840.5 [id number] 004 Univers 00:00:00 00:00:00 Only Unassigned, 55835.1.1 ity of [place] 3.104.2.7 [place] .3.691683 Medica l .8 [place] 2020-06-27 2020-06-27 Travel 1.2.840.1 1.2.712.390 [id number] Univers 00:00:00 00:00:00 59535.1.1 350.1.13.10 ity of 3.104.2.7 [place].3.698 [place] .3.604190 084.8 Medica l .8 [place] 2020-06-24 2020-06-24 Refottoniel Kong, 1.2.840.6 [id number] [id number] Univers 00:00:00 00:00:00 Wali Franklin 14751.1.1 ity of 3.104.2.7 [place] .3.838286 Medica l .8 [place] 2020-06-22 2020-06-22 Outpatient R JAVIER [facility] [id number] Univers 10:00:00 10:00:[address] [facility] 2020-06-22 2020-06-22 Nurse Debbi Carty 1.2.840.1 [id number] Univers 08:09:23 08:29:23 Visit Nurse, Pcp Kevin 27427.1.1 ity of 3.104.2.7 [place] .3.151998 Medica l .8 [place] 2020-06-22 2020-06-22 Travel 1.2.840.1 1.2.715.158 [id number] [id number] Univers 00:00:00 00:00:00 50408.1.1 350.1.13.10 ity of 3.104.2.7 4[place].3.698 [place] .3.487926 084.8 Medica l .8 [place] 2020-06-21 2020-06-21 Telephone Carloz, 1.2.840.2 [id number] [id number] Univers 00:00:00 00:00:00 Debbi A 08221.1.1 ity of 3.104.2.7 [place] .3.160383 Medica l .8 [place] 2020-06-19 2020-06-19 Ochoa HONG, [facility] [id number] Univers 14:30:00 14:30:00 MARYCHUY ity of [facility] 2020-06-19 2020-06-19 Travel 1.2.840.1 1.2.097.582 [id number] Univers 00:00:00 00:00:00 87917.1.1 350.1.13.10 ity of 3.104.2.7 4.[place]7.3.698 [place] .3.602558 084.8 Medica l .8 [place] 2020-06-19 2020-06-19 Refill Khalife, 1.2.840.9 [id number] [id number] Univers 00:00:00 00:00:00 Wissam 11949.1.1 ity of [place] 3.104.2.7 [place] .3.028754 Medica l .8 [place] 2020-06-19 2020-06-19 Refill Khalife, 1.2.840.1 [id number] [id number] Univers 00:00:00 00:00:00 Wissam 41808.1.1 ity of [place] 3.104.2.7 [place] .3.073241 Medica l .8 [place] 2020-06-18 2020-06-18 Refill Dilan, 1.2.840.7 [id number] [id number] Univers 00:00:00 00:00:00 Wali Franklin 82968.1.1 ity of 3.104.2.7 [place] .3.924328 Medica l .8 [place] 2020-06-15 2020-06-15 Refill Sindy, 1.2.840.5 [id number] 8046 [id number] Univers 00:00:00 00:00:00 Krystina 32213.1.1 ity of [place] 3.104.2.7 [place] .3.108378 Medica l .8 [place] 2020-06-12 2020-06-12 [facility] Rocio Ortiz 1.2.840.1 [id number] Univers 08:45:00 23:59:00 Encounter Simi, Remote Device Check At Home - 1 4350.1.1 ity of 3.104.2.7 [place] .3.473348 Medica l .8 [place] 2020-06-12 2020-06-12 Outpatient R ROBINFORMERLY [facility] [id number] Univers 08:45:00 08:45:00 [facility] 2020-06-07 2020-06-07 Refill Andrade, 1.2.840.6 [id number] Univers 00:00:00 00:00:00 Cecilio Elmer 15255.1.1 ity of 3.104.2.7 [place] .3.302003 Medica l .8 [place] 2020-06-07 2020-06-07 Refill Andrade, 1.2.840.6 [id number] Univers 00:00:00 00:00:00 Cecilio Payne 17518.1.1 ity of 3.104.2.7 [place] .3.243192 Medica l .8 [place] 2020-06-06 2020-06-06 [facility] Al Valiente 1.2.840.1 [id number] Univers 13:50:11 23:59:00 Encounter Mukund, [facility]c Cardio Vascular 54302.1.1 ity of 3.104.2.7 [place] .3.811061 Medica l .8 [place] 2020-06-06 2020-06-06 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 Nima Patterson 1.2.840.5 [id number] Univers 08:10:19 08:25:19 Visit Pob, Adc Lab Main 58363.1.1 ity of 3.104.2.7 [place] .3.394377 Medica l .8 [place] 2020-06-06 2020-06-06 Outpatient R [facility] [id number] Univers 08:00:00 08:00:00 ity of [facility] 2020-06-06 2020-06-06 Orders Doctor 1.2.840.2 [id number] Univers 00:00:00 00:00:00 Only Unassigned, 37667.1.1 ity of [place] 3.104.2.7 [place] .3.327454 Medica l [address] 2020-06-05 2020-06-05 Nurse Jennifer Johns 1.2.840.0 [id number] Univers 14:58:52 16:51:57 Visit NurseChristen Anticoag 83043.1.1 ity of 3.104.2.7 [place] .3.942829 Medica l .8 [place] 2020-06-05 2020-06-05 Outpatient R RYDER [facility] [id number] Univers 15:20:00 15:20:00 JENNIFER bennett y of [facility] 2020-06-05 2020-06-05 Patient Omole, 1.2.840.4 [id number] Univers 00:00:00 00:00:00 Secure Msg Nima 39397.1.1 i ty of [place] 3.104.2.7 [place] .3.532077 Medica l .8 [place] 2020-06-05 2020-06-05 Travel 1.2.840.1 .2.866.091 [id number] [id number] Univers 00:00:00 00:00:00 00352.1.1 350.1.13.10 ity of 3.104.2.7 4.2.7.3.698 [place] .3.471352 084.8 Medica l .8 [place] 2020-06-02 2020-06-02 Telephone Omole, 1.2.840.7 [id number] Univers 00:00:00 00:00:00 Nima 46752.1.1 ity of [place] 3.104.2.7 [place] .3.745343 Medica l .8 [place] 2020-06-01 2020-06-01 Outpatient R SINDY, [facility] [id number] Univers 08:00:00 08:00:[address] [facility] 2020-05-31 2020-05-31 Office Renate Florian 1.2.840.3 [id number] Univers 12:57:30 13:42:30 Visit Nima Patterson 76982.1.1 ity of 3.104.2.7 [place] .3.940441 Medica l .[address] [place] [address] 2020-05-31 2020-05-31 [facility] [id number] Univers 13:00:00 13:00:00 RENATE [facility] 2020-05-30 2020-05-30 [facility] [id number] Univers 09:00:00 09:00:00 [facility]-30 2020-05-30 Telemedici Aye, 1.2.840.0 [id number] Univers 07:11:42 07:31:42 ne Visit Robbin 37451.1.1 ity of 3.104.2.7 [place] .3.566764 Medica l .[address] [place] [address] 2020-05-26 2020-05-26 Outpatient R LEILANI [facility] [id number] Univers 14:15:00 14:15:[address] [facility] 2020-05-25 2020-05-25 [facility] [id number] Univers 09:00:00 09:00:[address] [facility] 2020-05-23 2020-05-23 Antwan Adkins, 1.2.840.9 [id number] Univers 00:00:00 00:00:00 Benitom 55891.1.1 ity of [place] 3.104.2.7 [place] .3.639923 Medica l .8 [place] 2020-05-22 2020-05-22 Nurse Jennifer Johns 1.2.840.6 [id number] Univers 14:26:40 17:34:45 Visit Nurse [facility] Kevin 88017.1.1 ity of 3.104.2.7 [place] .3.032614 Medica l .8 [place] 2020-05-22 2020-05-22 Outpatient R RYDER [facility] [id number] Univers 15:20:00 15:20:00 JENNIFER it y of [facility] 2020-05-22 2020-05-22 Travel 1.2.840.1 1.2.036.353 [id number] Univers 00:00:00 00:00:00 55055.1.1 350.1.13.10 ity of 3.104.2.7 4.2.7.3.698 [place] .3.998394 084.8 Medica l .[address] [place] [address] 2020-05-16 2020-05-16 Outpatient R SINDY [facility] [id number] Univers 08:15:00 08:15:00 WISSAM ity of [facility] 2020-05-16 2020-05-16 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 Sanna Xiao 1.2.840.1 [id number] Univers 07:52:10 08:07:10 Visit Krystina Adkinsim 61861.1.1 ity of 2, Adc Lab 3.104.2.7 [place] .3.140223 Medica l .[address] [place] [address] 2020-05-16 2020-05-16 Telephone Sindy 1.2.840.2 [id number] Univers 00:00:00 00:00:00 Krystina 39211.1.1 ity of [place] 3.104.2.7 [place] .3.490177 Medica l .8 [place] 2020-05-15 2020-05-15 Jennifer Mendosa 1.2.840.0 [id number] Univers 15:23:13 15:43:13 Visit Nurse [facility] Anticotodd 05141.1.1 ity of 3.104.2.7 [place] .3.673822 Medica l .8 [place] 2020-05-15 2020-05-15 Outpatient R RYDER [facility] [id number] Univers 15:20:00 15:20:00 JENNIFER it y of [facility] 2020-05-15 2020-05-15 Refill Sindy, 1.2.840.7 [id number] Univers 00:00:00 00:00:00 Wissam 58644.1.1 ity of [place] 3.104.2.7 [place] .3.295365 Medica l .8 [place] 2020-05-15 2020-05-15 Travel 1.2.840.1 1.2.982.825 [id number] [id number] Univers 00:00:00 00:00:00 37398.1.1 350.1.13.10 ity of 3.104.2.7 4.2.7.3.698 [place] .3.251225 084.8 Medica l .8 [place] 2020-05-11 2020-05-11 Outpatient R SINDY [facility] [id number] Univers 09:00:00 09:00:00 WISSAM ity of [facility] 2020-05-08 2020-05-08 Telephone Sindy, 1.2.840.2 [id number] Univers 00:00:00 00:00:00 Wissam 06060.1.1 ity of [place] 3.104.2.7 [place] .3.766339 Medica l .8 [place] 2020-05-04 2020-05-04 Outpatient R RAVENDEVAN [facility] [id number] Univers 08:30:00 08:30:00 WISSAM ity of [facility] 2020-05-04 2020-05-04 Patient Doctor 1.2.840.9 [id number] Univers 00:00:00 00:00:00 Secure Msg Unassigned, 01773.1.1 ity of [place] 3.104.2.7 [place] .3.723183 Medica l .8 [place] 2020-05-03 2020-05-03 Telephone Lupe, 1.2.840.6 [id number] Univers 00:00:00 00:00:00 Cecilio Payne 82098.1.1 ity of 3.104.2.7 [place] .3.347213 Medica l .8 [place] 2020-05-02 2020-05-02 Outpatient R JAVIER, [facility] [id number] Univers 13:00:00 13:00:[address] [facility] 2020-05-02 2020-05-02 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 Krystina Adkins 1.2.840 .7 [id number] Univers 08:24:05 08:44:05 Visit Poarely, [facility] Lab Main 93421.1.1 ity of 3.104.2.7 [place] .3.162450 Medica l .8 [place] 2020-04-28 2020-04-28 Outpatient R HANNAMIKE, [facility] [id number] Univers 12:45:00 12:45:[address] [facility] 2020-04-28 2020-04-28 Travel 1.2.840.1 1.2.284.545 [id number] Univers 00:00:00 00:00:00 05318.1.1 350.1.13.10 ity of 3.104.2.7 4.2.7.3.698 [place] .3.877291 084.8 Medica l .8 [place] 2020-04-27 2020-04-27 [facility] [id number] Univers 10:30:00 10:30:[address] [facility] 2020-04-25 2020-04-25 Office Sindy, 1.2.840.4 [id number] Univers 13:31:41 15:21:29 Visit Krystina 22460.1.1 ity of [place] 3.104.2.7 [place] .3.455440 Medica l .8 [place] 2020-04-25 2020-04-25 [facility] [id number] Univers 14:00:00 14:00:[address] [facility] 2020-04-25 2020-04-25 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 Krystina Adkins 1.2.840 .9 [id number] Univers 09:36:32 09:51:32 Visit 2, Adc Lab 18249.1.1 i ty of 3.104.2.7 [place] .3.723148 Medica l .8 [place] 2020-04-25 2020-04-25 Travel 1.2.840.1 1.2.601.127 1547 [id number] Univers 00:00:00 00:00:00 89116.1.1 350.1.13.10 ity of 3.104.2.7 4.2.7.3.698 [place] .3.155168 084.8 Medica l .8 [place] 2020-04-20 2020-04-20 Outpatient R SINDY [facility] [id number] Univers 12:30:00 12:30:00 [facility] ity of [facility] 2020-04-20 2020-04-20 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 Renate Florian 1.2.840.7 [id number] Univers 08:56:17 09:11:17 Visit Pob, Adc Lab Main 02232.1.1 ity of 3.104.2.7 [place] .3.312264 Medica l .8 [place] 2020-04-20 2020-04-20 Outpatient R VINCENT [facility] [id number] Univers 09:00:00 09:00:00 RENATE ity of [facility] 2020-04-20 2020-04-20 Orders Doctor 1.2.840.0 [id number] Univers 00:00:00 00:00:00 Only Unassigned, 86454.1.1 ity of [place] 3.104.2.7 [place] .3.170685 Medica l .8 [place] 2020-04-20 2020-04-20 Travel 1.2.840.1 1.2.047.119 [id number] [id number] Univers 00:00:00 00:00:00 89623.1.1 350.1.13.10 ity of 3.104.2.7 4.2.7.3.698 [place] .3.013083 084.8 Medica l .8 [place] 2020-04-17 2020-04-17 Nurse Jennifer Johns 1.2.840.1 [id number] Univers 15:28:47 17:12:36 Visit Nurse, Waenrike Anticotodd 43047.1.1 ity of 3.104.2.7 [place] .3.050819 Medica l .8 [place] 2020-04-17 2020-04-17 Outpatient R RYDER, [facility] [id number] Univers 15:20:00 15:20:00 JENNIFER it y of [facility] 2020-04-17 2020-04-17 Refill Jones, 1.2.840.8 [id number] Univers 00:00:00 00:00:00 Wentong 68849.1.1 ity of 3.104.2.7 [place] .3.222749 Medica l .8 [place] 2020-04-17 2020-04-17 Telephone Jones, 1.2.840.0 [id number] Univers 00:00:00 00:00:00 Wentong 84565.1.1 ity of 3.104.2.7 [place] .3.025967 Medica l .8 [place] 2020-04-17 2020-04-17 Telephone Sindy, 1.2.840.1 [id number] Univers 00:00:00 00:00:00 Krystina 80534.1.1 ity of [place] 3.104.2.7 [place] .3.070192 Medica l .8 [place] 2020-04-17 2020-04-17 Travel 1.2.840.1 1.2.280.145 [id number] [id number] Univers 00:00:00 00:00:00 52589.1.1 350.1.13.10 ity of 3.104.2.7 4.2.7.3.698 [place] .3.901460 084.8 Medica l .8 [place] 2020-04-13 2020-04-13 Nurse Krystina Adkins [place] 1.2.840.0 [id number] Univers 07:34:23 16:33:35 Visit 1, Adc Infusion Chair 76879.1.1 ity of 3.104.2.7 [place] .3.775550 Medica l .8 [place] 2020-04-13 2020-04-13 Outpatient R SINDY [facility] [id number] Univers 10:30:00 10:30:[address] [facility] ity [facility] 2020-04-13 2020-04-13 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 Krystina Adkins 1.2.840 .3 [id number] Univers 07:32:48 07:47:48 Visit 2, Adc Lab 96395.1.1 i ty of 3.104.2.7 [place] .3.499251 Medica l .8 [place] 2020-04-10 2020-04-10 Refill Jones, 1.2.840.5 [id number] Univers 00:00:00 00:00:00 Wentong 85026.1.1 ity of 3.104.2.7 [place] .3.848953 Medica l .8 [place] 2020-04-09 2020-04-09 Refill Jones, 1.2.840.7 [id number] Univers 00:00:00 00:00:00 Wentong 35813.1.1 ity of 3.104.2.7 [place] .3.508947 Medica l .8 [place] 2020-04-06 2020-04-06 [facility] [id number] Univers 10:00:00 10:00:[address] [facility] it[address] [facility] 2020-04-06 2020-04-06 Nurse Renate Florian 1.2.840.3 [id number] Univers 07:36:59 09:36:59 Visit 1, Adc Infusion Chair 99830.1.1 ity of 3.104.2.7 [place] .3.001490 Medica l .[address] [place] [address] 2020-04-06 2020-04-06 Outpatient R VINCENT [facility] [id number] Univers 08:30:00 08:30:[address] [facility] 2020-04-06 2020-04-06 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 Sindy Krystina [place] 1.2.840 .4 [id number] Univers 07:35:31 07:50:31 Visit 2, [facility] Lab 10603.1.1 i ty of 3.104.2.7 [place] .3.225452 Medica l .8 [place] 2020-04-06 2020-04-06 Travel 1.2.840.1 1.2.368.527 [id number] Univers 00:00:00 00:00:00 18909.1.1 350.1.13.10 ity of 3.104.2.7 4.2.7.3.698 [place] .3.475188 084.8 Medica l .8 [place] 2020-04-03 2020-04-03 Nurse Jennifer Johns 1.2.840.5 [id number] [facility] 15:11:28 15:51:28 Visit Nurse, [facility] Antico 52754.1.1 ity of 3.104.2.7 [place] .3.043143 Medica l .8 [place] 2020-04-03 2020-04-03 Outpatient R RYDER [facility] [id number] [facility] 15:20:00 15:20:00 JENNIFER bennett y of [facility] 2020-04-03 2020-04-03 Telephone Lakesha, 1.2.840.4 [id number] Univers 00:00:00 00:00:00 Fidel 82389.1.1 ity of 3.104.2.7 [place] .3.236662 Medica l .8 [place] 2020-04-03 2020-04-03 Patient Lupe, 1.2.840.6 [id number] Univers 00:00:00 00:00:00 Secure Msg Cecilio Payne 66320.1.1 ity of 3.104.2.7 [place] .3.981472 Medica l .8 [place] 2020-04-03 2020-04-03 Travel 1.2.840.1 1.2.853.286 [id number] [id number] Univers 00:00:00 00:00:00 28072.1.1 350.1.13.10 ity of 3.104.2.7 4.2.7.3.698 [place] .3.406846 084.8 Medica l .8 [place] 2020-04-02 2020-04-02 Refill Doctor 1.2.840.0 [id number] Univers 00:00:00 00:00:00 Unassigned, 52675.1.1 ity of [place] 3.104.2.7 [place] .3.900561 Medica l .8 [place] 2020-03-30 2020-03-30 Outpatient R SINDY [facility] [id number] Univers 10:30:00 10:30:00 KRYSTINA ity of [facility] 2020-03-30 2020-03-30 Nurse Krystina Adkins 1.2.840.5 [id number] Univers 08:06:39 10:06:39 Visit 1, Adc Infusion Chair 76969.1.1 ity of 3.104.2.7 [place] .3.480268 Medica l .8 [place] 2020-03-30 2020-03-30 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 Krystina Adkins 1.2.840 .3 [id number] Univers 08:08:59 08:23:59 Visit 2, Adc Lab 88782.1.1 i ty of 3.104.2.7 [place] .3.407409 Medica l .8 [place] 2020-03-30 2020-03-30 Orders Doctor 1.2.840.6 [id number] Univers 00:00:00 00:00:00 Only Unassigned, 29168.1.1 ity of [place] 3.104.2.7 [place] .3.721952 Medica l .8 [place] 2020-03-30 2020-03-30 Telephone Sindy, 1.2.840.9 [id number] Univers 00:00:00 00:00:00 Krystina 62419.1.1 ity of [place] 3.104.2.7 [place] .3.572868 Medica l .8 [place] 2020-03-30 2020-03-30 Travel 1.2.840.1 1.2.651.622 6212 6972 Univers 00:00:00 00:00:00 40874.1.1 350.1.13.10 ity of 3.104.2.7 4.2.7.3.698 [place] .3.432838 084.8 Medica l .8 [place] 2020-03-28 2020-03-28 Outpatient R JAVIER, [facility] [id number] Univers 11:00:00 11:00:[address] [facility] 2020-03-24 2020-03-24 Telephone Sindy 1.2.840.8 [id number] Univers 00:00:00 00:00:00 Krystina 40337.1.1 ity of [place] 3.104.2.7 [place] .3.116781 Medica l .8 [place] 2020-03-23 2020-03-23 Nurse Krystina Adkins 1.2.840.4 [id number] Univers 08:07:03 13:40:26 Visit 1, Adc Infusion Chair 29707.1.1 ity of 3.104.2.7 [place] .3.405002 Medica l .8 [place] 2020-03-23 2020-03-23 Outpatient R SINDY, [facility] [id number] Univers 10:30:00 10:30:[address] [facility] 2020-03-23 2020-03-23 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 Krystina Adkins [place] 1.2.840 .0 [id number] Univers 08:03:37 08:18:37 Visit 2, Adc Lab 29881.1.1 i ty of 3.104.2.7 [place] .3.929138 Medica l .8 [place] 2020-03-23 2020-03-23 Travel 1.2.840.1 1.2.595.592 2333 [id number] Univers 00:00:00 00:00:00 66667.1.1 350.1.13.10 ity of 3.104.2.7 4.2.7.3.698 [place] .3.851266 084.8 Medica l .8 [place] 2020-03-20 2020-03-20 Nurse Jennifer Johns 1.2.840.5 [id number] Univers 15:33:56 16:13:56 Visit Nurse, [facility] Anticoag 23997.1.1 ity of 3.104.2.7 [place] .3.834300 Medica l .8 [place] 2020-03-20 2020-03-20 Outpatient R RYDER, [facility] [id number] Univers 15:20:00 15:20:00 JENNIFER it y of [facility] 2020-03-20 2020-03-20 Travel 1.2.840.1 1.2.664.569 [id number] Univers 00:00:00 00:00:00 25586.1.1 350.1.13.10 ity of 3.104.2.7 4.2.7.3.698 [place] .3.686430 084.8 Medica l .8 [place] 2020-03-18 2020-03-18 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 Rebeca Cabrera 1.2.840.2 [id number] Univers 08:32:37 08:47:37 Visit Pob, Adc Lab Main 94702.1.1 ity of 3.104.2.7 [place] .3.213286 Medica l .8 [place] 2020-03-18 2020-03-18 Outpatient R [facility] [id number] Univers 08:30:00 08:30:00 ity of [facility] 2020-03-17 2020-03-17 Telephone Sindy 1.2.840.8 [id number] Univers 00:00:00 00:00:00 Krystina 51758.1.1 ity of [place] 3.104.2.7 [place] .3.138725 Medica l .8 [place] 2020-03-16 2020-03-16 Nurse Krystina Adkins 1.2.840.8 [id number] Univers 09:17:30 14:36:49 Visit 1, Adc Infusion Chair 36013.1.1 ity of 3.104.2.7 [place] .3.618213 Medica l .8 [place] 2020-03-16 2020-03-16 Outpatient R SINDY [facility] [id number] Univers 10:30:00 10:30:00 WISSAM ity of [facility] 2020-03-16 2020-03-16 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 Krystina Adkins 1.2.840 .7 [id number] Univers 09:14:04 09:29:04 Visit 2, Adc Lab 41578.1.1 i ty of 3.104.2.7 [place] .3.918602 Medica l .8 [place] 2020-03-14 2020-03-14 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 Renate Florian 1.2.840.7 [id number] Univers 08:49:08 09:04:08 Visit 2, Adc Lab 89814.1.1 i ty of 3.104.2.7 [place] .3.392204 Medica l .8 [place] 2020-03-14 2020-03-14 Outpatient R VINCENT [facility] [id number] Univers 08:45:00 08:45:00 RENATE ity of [facility] 2020-03-14 2020-03-14 Orders Doctor 1.2.840.9 [id number] Univers 00:00:00 00:00:00 Only Unassigned, 78012.1.1 ity of [place] 3.104.2.7 [place] .3.808992 Medica l .8 [place] 2020-03-14 2020-03-14 Telephone Sindy 1.2.840.4 [id number] Univers 00:00:00 00:00:00 Krystina 82971.1.1 ity of [place] 3.104.2.7 [place] .3.727929 Medica l .8 [place] 2020-03-13 2020-03-13 Office Lulú [place] 1.2.840.3 [id number] Univers 09:44:42 16:29:10 Visit N 24683.1.1 ity of 3.104.2.7 [place] .3.230870 Medica l .8 [place] 2020-03-13 2020-03-13 Outpatient R LULÚ LANCASTER [facility] [id number] Univers 10:00:00 10:00:00 ity of [facility] 2020-03-13 2020-03-13 Telephone Jones, 1.2.840.5 [id number] Univers 00:00:00 00:00:00 Wentong 63369.1.1 ity of 3.104.2.7 [place] .3.451198 Medica l .8 [place] 2020-03-13 2020-03-13 Telephone Sindy, 1.2.840.3 [id number] Univers 00:00:00 00:00:00 Wissam 05967.1.1 ity of [place] 3.104.2.7 [place] .3.055612 Medica l .8 [place] 2020-03-13 2020-03-13 Patient Khalife, 1.2.840.4 [id number] Univers 00:00:00 00:00:00 Secure Msg Krystina 40962.1.1 i ty of [place] 3.104.2.7 [place] .3.975351 Medica l .8 [place] 2020-03-13 2020-03-13 Travel 1.2.840.1 1.2.247.010 1105 4590 Univers 00:00:00 00:00:00 77024.1.1 350.1.13.10 ity of 3.104.2.7 4.2.7.3.698 [place] .3.052484 084.8 Medica l .8 [place] 2020-03-11 2020-03-11 Outpatient R SINDY [facility] [id number] Univers 09:15:00 09:15:00 DENNISESAM ity of [facility] 2020-03-11 2020-03-11 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 Luis AngelKrystina brady [place] 1.2.840 .5 [id number] Univers 08:49:54 09:04:54 Visit Pob, Adc Lab Main 51105.1.1 ity of 3.104.2.7 [place] .3.141075 Medica l .8 [place] 2020-03-10 2020-03-10 Telephone Jones, 1.2.840.9 [id number] Univers 00:00:00 00:00:00 Wentong 21511.1.1 ity of 3.104.2.7 [place] .3.209386 Medica l .8 [place] 2020-03-10 2020-03-10 Telephone Snidy, 1.2.840.1 [id number] Univers 00:00:00 00:00:00 Krystina 62345.1.1 ity of [place] 3.104.2.7 [place] .3.745144 Medica l .8 [place] 2020-03-09 2020-03-09 Nurse Krystina Adkins 1.2.840.0 [id number] Univers 09:11:09 09:41:09 Visit 1, [facility] Infusion Nurse 55859.1.1 ity of 3.104.2.7 [place] .3.674466 Medica l .8 [place] 2020-03-09 2020-03-09 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 Krystina Adkins 1.2.840 .5 [id number] Univers 08:48:04 09:03:04 Visit 2, [facility] Lab 93423.1.1 i ty of 3.104.2.7 [place] .3.783955 Medica l .8 [place] 2020-03-09 2020-03-09 [facility] [id number] Univers 09:00:00 09:00:00 WISSAM ity of [facility] 2020-03-09 2020-03-09 Telephone Lupe, 1.2.840.1 [id number] Univers 00:00:00 00:00:00 Cecilio Payne 61711.1.1 ity of 3.104.2.7 [place] .3.574866 Medica l .8 [place] 2020-03-09 2020-03-09 Travel 1.2.840.1 1.2.916.385 2300 [id number] Univers 00:00:00 00:00:00 19958.1.1 350.1.13.10 ity of 3.104.2.7 4.2.7.3.698 [place] .3.547772 084.8 Medica l .8 [place] 2020-03-07 2020-03-07 Outpatient R SINDY [facility] [id number] Univers 15:30:00 15:30:00 WISSAM ity of [facility] 2020-03-07 2020-03-07 Office Lupe, 1.2.840.5 [id number] Univers 13:39:02 14:20:10 Visit Cecilio Payne 25216.1.1 ity of 3.104.2.7 [place] .3.285909 Medica l .8 [place] 2020-03-07 2020-03-07 [facility] [id number] Univers 13:40:00 13:40:00 CECILIO ity of [facility] 2020-03-06 2020-03-06 Travel 1.2.840.1 1.2.596.717 [id number] [id number] Univers 00:00:00 00:00:00 82138.1.1 350.1.13.10 ity of 3.104.2.7 [place].3.698 [place] .3.292865 084.8 Medica l .8 [place] 2020-03-06 2020-03-06 Refill Andrade, 1.2.840.4 [id number] Univers 00:00:00 00:00:00 Cecilio Payne 06248.1.1 ity of 3.104.2.7 [place] .3.466399 Medica l .8 [place] 2020-03-06 2020-03-06 Refill Andrade, 1.2.840.0 [id number] Univers 00:00:00 00:00:00 Cecilio A 32921.1.1 ity of 3.104.2.7 [place] .3.232816 Medica l .8 [place] 2020-03-03 2020-03-03 Emergency Gaurav Wang 1.2.840.6 [id number] Univers 16:38:00 20:36:00 Kurt Natarajan 26063.1.1 ity of 3.104.2.7 [place] .3.605582 Medica l .8 [place] 2020-03-03 2020-03-03 Travel 1.2.840.1 1.2.158.035 1582 [id number] Univers 00:00:00 00:00:00 47089.1.1 350.1.13.10 ity of 3.104.2.7 4.[place].3.698 [place] .3.374619 084.8 Medica l .8 [place] 2020-03-02 2020-03-02 Orders Doctor 1.2.840.2 [id number] Univers 00:00:00 00:00:00 Only Unassigned, 29168.1.1 ity of [place] 3.104.2.7 [place] .3.747434 Medica l .8 [place] 2020-03-01 2020-03-01 [facility] 1.2.840.3 [id number] Univers 11:45:00 23:59:00 Encounter Simi, Remote Device Check At Home - 1 4350.1.1 ity of 3.104.2.7 [place] .3.425909 Medica l .8 [place] 2020-03-01 2020-03-01 [facility] [id number] Univers 11:45:00 11:45:00 RYDER ity of [facility] 2020-02-29 2020-02-29 [facility] [id number] Univers 11:00:00 11:00:00 FLORENCE ity of [facility] 2020-02-29 2020-02-29 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 Krystina Adkins 1.2.840 .6 [id number] Univers 09:58:45 10:13:45 Visit Draw, [facility] 60562.1.1 ity of 3.104.2.7 [place] .3.791845 Medica l .8 [place] 2020-02-29 2020-02-29 Telephone Sindy, 1.2.840.9 [id number] Univers 00:00:00 00:00:00 Krystina 20422.1.1 ity of [place] 3.104.2.7 [place] .3.336248 Medica l .8 [place] 2020-02-29 2020-02-29 Travel 1.2.840.1 1.2.279.326 6183 [id number] Univers 00:00:00 00:00:00 12130.1.1 350.1.13.10 ity of 3.104.2.7 4.[place]7.3.698 [place] .3.347614 084.8 Medica l .8 [place] 2020-02-25 2020-02-25 Travel 1.2.840.1 1.2.042.443 4528 [id number] Univers 00:00:00 00:00:00 74324.1.1 350.1.13.10 ity of 3.104.2.7 4.[place]7.3.698 [place] .3.830150 084.8 Medica l .8 [place] 2020-02-24 2020-02-24 Office Vincent, 1.2.840.6 [id number] Univers 13:35:47 14:26:37 Visit Renate Pickens 76011.1.1 i ty of 3.104.2.7 [place] .3.064988 Medica l .8 [place] 2020-02-24 2020-02-24 Outpatient R VINCENT [facility] [id number] Univers 13:45:00 13:45:[address] [facility] 2020-02-24 2020-02-24 Travel 1.2.840.1 1.2.287.[id number] [facility] 00:00:00 00:00:00 66038.1.1 350.1.13.10 ity of 3.104.2.7 4.[place]7.3.698 [place] .3.459472 084.8 Medica l .8 [place] 2020-02-22 2020-02-22 Office Robert, 1.2.840.8 [id number] Univers 13:59:50 15:30:21 Visit Zhen 86969.1.1 ity of 3.104.2.7 [place] .3.722138 Medica l .8 [place] 2020-02-22 2020-02-22 Outpatient R ROBERT [facility] [id number] Univers 15:30:00 15:30:[address] [facility] 2020-02-22 2020-02-22 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 Renate Florian 1.2.840.1 [id number] Univers 13:48:19 14:03:19 Visit 2, [facility] Lab 10630.1.1 i ty of 3.104.2.7 [place] .3.733252 Medica l .8 [place] 2020-02-21 2020-02-21 Outpatient R RYDER, [facility] [id number] Univers 15:40:00 15:40:00 JENNIFER bennett y of [facility] 2020-02-21 2020-02-21 Nurse Jennifer Johns 1.2.840.3 [id number] Univers 15:10:28 15:30:28 Visit Nurse, [facility] Anticoag 55587.1.1 ity of 3.104.2.7 [place] .3.067525 Medica l .8 [place] 2020-02-21 2020-02-21 Orders Doctor 1.2.840.5 [id number] Univers 00:00:00 00:00:00 Only Unassigned, 61726.1.1 ity of [place] 3.104.2.7 [place] .3.031693 [facility]ica l .8 [place] 2020-02-21 2020-02-21 Travel 1.2.840.1 1.2.853.704 7794 5133 Univers 00:00:00 00:00:00 03831.1.1 350.1.13.10 ity of 3.104.2.7 [place]7.3.698 [place] .3.703881 084.8 Med[place] l .8 [place] 2020-02-18 2020-02-18 Outpatient R LEILANI, [facility] [id number] Univers 15:00:00 15:00:00 VLADIMIR ity of [facility] 2020-02-18 2020-02-18 Outpatient R SELF, [facility] [id number] Univers 14:15:00 14:15:00 BANDAR ity o f [facility] 2020-02-18 2020-02-18 Travel 1.2.840.1 1.2.672.286 3298 5243 Univers 00:00:00 00:00:00 58361.1.1 350.1.13.10 ity of 3.104.2.7 [place]7.3.698 [place] .3.757298 084.8 Med[place] l .8 [place] 2020-02-14 2020-02-14 Telephone Sindy, 1.2.840.5 [id number] Univers 00:00:00 00:00:00 Wissam 98340.1.1 ity of [place] 3.104.2.7 [place] .3.457270 Medica l .8 [place] 2020-02-11 2020-02-11 Outpatient R [facility] [id number] Univers 10:00:00 10:00:00 ity of [facility] 2020-02-09 2020-02-10 Emergency Amisha Toth 1.2.840.0 [id number] Univers 09:23:00 18:33:00 Akilah Green 59034.1.1 ity of 3.104.2.7 [place] .3.926734 Medica l .8 [place] 2020-02-10 2020-02-10 [facility] [id number] Univers 10:45:00 10:45:00 REBECA ity of [facility] 2020-02-09 2020-02-09 Telephone Sindy, 1.2.840.9 [id number] Univers 00:00:00 00:00:00 Wissam 95605.1.1 ity of [place] 3.104.2.7 [place] .3.150863 Medica l .8 [place] 2020-02-09 2020-02-09 Telephone Sindy, 1.2.840.1 [id number] Univers 00:00:00 00:00:00 Wissam 84220.1.1 ity of [place] 3.104.2.7 [place] .3.102681 Medica l .8 [place] 2020-02-09 2020-02-09 Travel 1.2.840.1 1.2.189.156 0716 3038 Univers 00:00:00 00:00:00 72017.1.1 350.1.13.10 ity of 3.104.2.7 4.[place]7.3.698 [place] .3.911145 084.8 Medica l .8 [place] 2020-02-08 2020-02-08 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 Luis Angelcaitlyn Krystina Hancockahim 1.2.840 .3 [id number] Univers 16:27:44 16:42:44 Visit Draw, [facility] 53275.1.1 ity of 3.104.2.7 [place] .3.806740 Medica l .8 [place] 2020-02-08 2020-02-08 Office Sindy 1.2.840.5 [id number] [facility] 14:39:33 16:23:28 Visit Krystina 68074.1.1 ity of [place] 3.104.2.7 [place] .3.730303 Medica l .8 [place] 2020-02-08 2020-02-08 Outpatient R SINDY, [facility] [id number] Univers 15:00:00 15:00:00 DENNISESAM ity of [facility] 2020-02-08 2020-02-08 Telephone Sindy, 1.2.840.6 [id number] Univers 00:00:00 00:00:00 Krystina 85213.1.1 ity of [place] 3.104.2.7 [place] .3.402292 Medica l .8 [place] 2020-02-08 2020-02-08 Travel 1.2.840.1 1.2.580.070 6726 [id number] Univers 00:00:00 00:00:00 21328.1.1 350.1.13.10 ity of 3.104.2.7 4.[place].7.3.698 [place] .3.917799 084.8 [facility] l .8 [place] 2020-02-04 2020-02-04 Linda Johns 1.2.840.4 [id number] Univers 00:00:00 00:00:00 Jennifer 41522.1.1 ity of Fei 3.104.2.7 [place] .3.837961 Medica l .8 [place] 2020-02-01 2020-02-01 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 Cecilio Andrade 1.2.840. 6 [id number] Univers 11:29:24 11:44:24 Visit 2, [facility] 61618.1.1 i ty of 3.104.2.7 [place] .3.597898 Medica l .8 [place] 2020-02-01 2020-02-01 [facility] [id number] Univers 11:30:00 11:30:[address] [facility] 2020-02-01 2020-02-01 Travel 1.2.840.1 1.2.678.723 8195 1686 Univers 00:00:00 00:00:00 66479.1.1 350.1.13.10 ity of 3.104.2.7 [place]7.3.698 [place] .3.826555 084.8 Medica l .8 [place] 2020-01-31 2020-01-31 Telephone Luis Angel, 1.2.840.8 [id number] Univers 00:00:00 00:00:00 Wissam 81629.1.1 ity of [place] 3.104.2.7 [place] .3.188866 Medica l .8 [place] 2020-01-24 2020-01-25 Office Andrade, 1.2.840.3 [id number] Univers 14:16:28 14:14:26 Visit Cecilio Payne 04803.1.1 ity of 3.104.2.7 [place] .3.872902 Medica l .8 [place] 2020-01-25 2020-01-25 Outpatient Toan HERRERA [facility] [id number] Univers 08:00:00 08:00:00 FLORENCE ity of [facility] 2020-01-25 2020-01-25 Travel 1.2.840.1 1.2.178.100 9492 [id number] Univers 00:00:00 00:00:00 23859.1.1 350.1.13.10 ity of 3.104.2.7 4.[place].7.3.698 [place] .3.747758 084.8 Medica l .8 [place] 2020-01-24 2020-01-24 [facility] 1028 [id number] Univers 16:20:00 16:20:00 CECILIO ity of [facility] 2020-01-24 2020-01-24 Telephone Andrade, 1.2.840.4 [id number] Univers 00:00:00 00:00:00 Cecilio Payne 84409.1.1 ity of 3.104.2.7 [place] .3.945544 Medica l .8 [place] 2020-01-24 2020-01-24 Travel 1.2.840.1 1.2.929.773 9040 4189 Univers 00:00:00 00:00:00 13190.1.1 350.1.13.10 ity of 3.104.2.7 4.2.7.3.698 [place] .3.992801 084.8 Medica l .8 [place] 2020-01-17 2020-01-17 Nurse Jennifer Johns 1.2.840.0 [id number] Univers 15:42:05 16:22:05 Visit Nurse, [facility] Anticoag 26038.1.1 ity of 3.104.2.7 [place] .3.681608 Medica l .8 [place] 2020-01-17 2020-01-17 [facility] [id number] Univers 15:20:00 15:20:00 JENNIFER bennett y of [facility] 2020-01-17 2020-01-17 Travel 1.2.840.1 1.2.796.003 9690 6850 Univers 00:00:00 00:00:00 66325.1.1 350.1.13.10 ity of 3.104.2.7 4.2.7.3.698 [place] .3.467836 084.8 Medica l .8 [place] 2020-01-13 2020-01-13 Outpatient R [facility] [id number] Univers 15:30:00 15:30:00 ity of [facility] 2020-01-13 2020-01-13 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 Cecilio Andrade 1.2.840. 3 [id number] Univers 15:12:55 15:27:55 Visit 2, [facility] 51297.1.1 i ty of 3.104.2.7 [place] .3.666087 Medica l .8 [place] 2020-01-13 2020-01-13 Outpatient R [facility] [id number] Univers 08:30:00 08:30:00 ity of [facility] 2020-01-11 2020-01-11 Office Noman, 1.2.840.9 [id number] Univers 13:20:52 13:57:09 Visit Aishat 13752.1.1 ity of [place] 3.104.2.7 [place] .3.079366 Medica l .8 [place] 2020-01-11 2020-01-11 [facility] [id number] Univers 13:30:00 13:30:00 EDDIT ity of [facility] 2020-01-10 2020-01-10 [facility] [id number] Univers 09:30:00 09:30:00 BANDAR ity o f [facility] 2020-01-10 2020-01-10 Travel 1.2.840.1 1.2.187.670 8616 0384 Univers 00:00:00 00:00:00 71782.1.1 350.1.13.10 ity of 3.104.2.7 4.2.7.3.698 [place] .3.294462 084.8 Medica l .8 [place] 2020-01-06 2020-01-06 [facility] [id number] Univers 15:40:00 15:40:00 CECILIO ity of [facility] 2020-01-06 2020-01-06 Telephone Lupe, 1.2.840.9 [id number] Univers 00:00:00 00:00:00 Cecilio Payne 50551.1.1 ity of 3.104.2.7 [place] .3.593591 Medica l .8 [place] 2020-01-06 2020-01-06 Travel 1.2.840.1 1.2.519.638 3114 [id number] Univers 00:00:00 00:00:00 96622.1.1 350.1.13.10 ity of 3.104.2.7 4.2.7.3.698 [place] .3.520880 084.8 Medica l .8 [place] 2020-01-06 2020-01-06 Patient Lupe, 1.2.840.0 [id number] [facility] 00:00:00 00:00:00 Secure Msg Cecilio Payne 80715.1.1 ity of 3.104.2.7 [place] .3.172965 Medica l .8 [place] 2020-01-05 2020-01-05 [facility] 1027 [id number] Univers 13:45:00 13:45:[address] [facility] 2020-01-05 2020-01-05 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 Cecilio Andrade 1.2.840. 4 [id number] Univers 10:27:30 10:42:30 Visit 2, [facility] 37592.1.1 i ty of 3.104.2.7 [place] .3.091769 Medica l .8 [place] 2020-01-04 2020-01-04 Telemedici Lupe, 1.2.840.4 [id number] Univers 08:42:32 17:19:56 ne Visit Cecilio Payne 95039.1.1 ity of 3.104.2.7 [place] .3.209821 Medica l .8 [place] 2020-01-04 2020-01-04 [facility] [id number] Univers 15:20:00 15:20:[address] [facility] 2020-01-04 2020-01-04 Travel 1.2.840.1 1.2.604.995 4388 [id number] [facility] 00:00:00 00:00:00 92185.1.1 350.1.13.10 ity of 3.104.2.7 4.2.7.3.698 [place] .3.116384 084.8 Medica l .8 [place] 2019-12-28 2019-12-28 [facility] [id number] Univers 08:00:00 08:00:00 FLORENCE ity of [facility] 2019-12-28 2019-12-28 Travel 1.2.840.1 1.2.784.927 5886 3094 Univers 00:00:00 00:00:00 40374.1.1 350.1.13.10 ity of 3.104.2.7 4.2.7.3.698 [place] .3.184306 084.8 Medica l .8 [place] 2019-12-21 2019-12-21 Outpatient [facility] [id number] Univers 11:00:00 11:00:[address] [facility] 2019-12-20 2019-12-20 Travel 1.2.840.1 1.2.558.735 1853 0281 Univers 00:00:00 00:00:00 37986.1.1 350.1.13.10 ity of 3.104.2.7 4.2.7.3.698 [place] .3.706957 084.8 Medica l .8 [place] 2019-12-16 2019-12-16 [facility], 1.2.840.9 [id number] Univers 13:20:00 23:59:00 Encounter Cecilio A 80241.1.1 ity of 3.104.2.7 [place] .3.632290 Medica l .8 [place] 2019-12-16 2019-12-16 [facility] 1027 [id number] Univers 12:35:58 23:59:00 CECILIO ity of [facility] 2019-12-16 2019-12-16 Travel 1.2.840.1 1.2.987.680 6189 [id number] Univers 00:00:00 00:00:00 71633.1.1 350.1.13.10 ity of 3.104.2.7 4.2.7.3.698 [place] .3.419361 084.8 Medica l .8 [place] 2019-12-16 2019-12-16 Orders Doctor 1.2.840.9 [id number] Univers 00:00:00 00:00:00 Only Unassigned, 63760.1.1 ity of [place] 3.104.2.7 [place] .3.968152 Medica l .8 [place] 2019-12-13 2019-12-13 Nurse Jennifer Johns 1.2.840.8 [id number] Univers 15:42:29 16:22:29 Visit Nurse, [place] Anticoag 19965.1.1 ity of 3.104.2.7 [place] .3.525838 Medica l .8 [place] 2019-12-13 2019-12-13 Outpatient R RYDER, [facility] [id number] Univers 15:20:00 15:20:00 JENNIFER bennett y of [facility] 2019-12-13 2019-12-13 Travel 1.2.840.1 1.2.578.162 8482 7085 Univers 00:00:00 00:00:00 67973.1.1 350.1.13.10 ity of 3.104.2.7 4.2.7.3.698 [place] .3.642137 084.8 Medica l .8 [place] 2019-12-09 2019-12-09 Telephone Andrade, 1.2.840.2 [id number] Univers 00:00:00 00:00:00 Cecilio Payne 51707.1.1 ity of 3.104.2.7 [place] .3.309574 Medica l .8 [place] 2019-12-08 2019-12-08 Patient Jones, 1.2.840.4 [id number] Univers 00:00:00 00:00:00 Secure Msg Zhen 49053.1.1 i ty of 3.104.2.7 [place] .3.869965 Medica l .8 [place] 2019-12-08 2019-12-08 Travel 1.2.840.1 1.2.883.385 2363 6058 Univers 00:00:00 00:00:00 59873.1.1 350.1.13.10 ity of 3.104.2.7 4.2.7.3.698 [place] .3.170555 084.8 Medica l .8 [place] 2019-12-08 2019-12-08 Refill Jones, 1.2.840.9 [id number] Univers 00:00:00 00:00:00 Wentong 44609.1.1 ity of 3.104.2.7 [place] .3.660457 Medica l .8 [place] 2019-12-07 2019-12-07 [facility] [id number] Univers 13:02:44 23:59:00 CECILIO ity of [facility] 2019-12-07 2019-12-07 [facility], 1.2.840.3 [id number] Univers 13:02:00 23:59:00 Encounter Cecilio Payne 34916.1.1 ity of 3.104.2.7 [place] .3.028371 Medica l .8 [place] 2019-12-07 2019-12-07 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 Cecilio Andrade 1.2.840. 6 [id number] Univers 12:54:13 13:09:13 Visit Poarely, [facility] Main 74612.1.1 ity of 3.104.2.7 [place] .3.853327 Medica l .8 [place] 2019-12-06 2019-12-07 Telemedici Lupe, 1.2.840.9 [id number] Univers 12:11:34 08:34:12 ne Visit Cecilio Payne 70968.1.1 ity of 3.104.2.7 [place] .3.885900 Medica l .8 [place] 2019-12-06 2019-12-06 [facility] [id number] Univers 13:00:00 13:00:00 CECILIO alba of [facility] 2019-12-06 2019-12-06 Travel 1.2.840.1 1.2.487.566 3629 7139 Univers 00:00:00 00:00:00 80320.1.1 350.1.13.10 ity of 3.104.2.7 4.2.7.3.698 [place] .3.616911 084.8 Medica l .8 [place] 2019-12-03 2019-12-03 Travel 1.2.840.1 1.2.932.280 6275 5570 Univers 00:00:00 00:00:00 15912.1.1 350.1.13.10 ity of 3.104.2.7 4.2.7.3.698 [place] .3.033822 084.8 Medica l .8 [facility] 2019-12-02 2019-12-02 [facility] [place] 1.2.840.4 [id number] Univers 09:34:00 23:59:00 Encounter Outpt-Simi, Pacemaker/Icd 30023.1.1 ity of 3.104.2.7 [place] .3.013664 Medica l .8 [place] 2019-12-02 2019-12-02 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 Robbin Griffiths 1.2.840.2 [id number] Univers 13:57:51 15:49:42 Visit [facility] 11990.1.1 ity of 3.104.2.7 [place] .3.242879 Medica l .8 [place] 2019-12-02 2019-12-02 Office Aye, 1.2.840.2 [id number] Univers 12:35:25 13:50:39 Visit Robbin 91372.1.1 ity of 3.104.2.7 [place] .3.250448 Medica l .8 [facility] 2019-12-02 2019-12-02 Outpatient R AYE [facility] [id number] Univers 13:00:00 13:00:00 TEJO ity of [facility] 2019-12-02 2019-12-02 Travel 1.2.840.1 1.2.431.785 1713 2685 Univers 00:00:00 00:00:00 68592.1.1 350.1.13.10 ity of 3.104.2.7 4.2.7.3.698 [place] .3.990625 084.8 Medica l .8 [place] 2019-12-01 2019-12-01 [facility] [id number] Univers 10:00:00 10:00:00 FLORENCE ity of [facility] 2019-12-01 2019-12-01 Refill Jones, 1.2.840.8 [id number] Univers 00:00:00 00:00:00 Wentong 21450.1.1 ity of 3.104.2.7 [place] .3.759129 Medica l .8 [place] 2019-11-30 2019-11-30 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 Krystina Adkins 1.2.840 .0 [id number] Univers 10:56:46 13:29:10 Visit [facility] 79078.1.1 ity of 3.104.2.7 [place] .3.387774 Medica l .8 [place] 2019-11-30 2019-11-30 Office OmoleNima 1.2.840.1 10 [id number] Univers 09:42:10 10:50:09 Visit Practitioner, Heart Failure Nurse 1435 0.1.1 ity of 3.104.2.7 [place] .3.749632 Medica l .8 [place] 2019-11-30 2019-11-30 [facility] [id number] Univers 10:30:00 10:30:00 NIMA ity of [facility] 2019-11-30 2019-11-30 Telephone Vincent, 1.2.840.9 [id number] Univers 00:00:00 00:00:00 Renatejossue Pickens 41838.1.1 i ty of 3.104.2.7 [place] .3.282875 Medica l .8 [place] 2019-11-30 2019-11-30 Travel 1.2.840.1 1.2.380.534 2363 7843 Univers 00:00:00 00:00:00 64081.1.1 350.1.13.10 ity of 3.104.2.7 4.2.7.3.698 [place] .3.518113 084.8 Medica l .8 [place] 2019-11-19 2019-11-19 [facility] [id number] Univers 09:00:00 09:00:00 FLORENCE ity of [facility] 2019-11-19 2019-11-19 Travel 1.2.840.1 1.2.458.263 7328 2458 Univers 00:00:00 00:00:00 74217.1.1 350.1.13.10 ity of 3.104.2.7 4.2.7.3.698 [place] .3.663167 084.8 Medica l .8 [place] 2019-11-11 2019-11-11 Outpatient R CHRISTA [facility] [id number] Univers 10:00:00 10:00:00 REBECA ity of [facility] 2019-11-11 2019-11-11 Telephone Lupe, 1.2.840.6 [id number] Univers 00:00:00 00:00:00 Cecilio Payne 62242.1.1 ity of 3.104.2.7 [place] .3.441595 Medica l .8 [place] 2019-11-10 2019-11-10 Patient Lupe, 1.2.840.5 [id number] Univers 00:00:00 00:00:00 Secure Msg Cecilio Elmer 40917.1.1 ity of 3.104.2.7 [place] .3.275280 Medica l .8 [place] 2019-11-08 2019-11-08 Nurse Jennifer Johns 1.2.840.9 [id number] Univers 15:39:17 15:59:17 Visit Nurse, [facility] Giselle 51369.1.1 ity of 3.104.2.7 [place] .3.755570 Medica l .8 [place] 2019-11-08 2019-11-08 Outpatient R RYDER [facility] [id number] Univers 15:40:00 15:40:00 JENNIFER bennett y of [facility] 2019-11-08 2019-11-08 Travel 1.2.840.1 1.2.028.523 9716 5139 Univers 00:00:00 00:00:00 11666.1.1 350.1.13.10 ity of 3.104.2.7 4.2.7.3.698 [place] .3.050122 084.8 Medica l .8 [place] 2019-11-04 2019-11-04 Orders Doctor 1.2.840.0 [id number] Univers 00:00:00 00:00:00 Only Unassigned, 28136.1.1 ity of [place] 3.104.2.7 [place] .3.182700 Medica l .8 [place] 2019-11-02 2019-11-02 Telemedici Lupe, 1.2.840.8 [id number] Univers 07:16:40 13:25:54 ne Visit Cecilio Payne 13151.1.1 ity of 3.104.2.7 [place] .3.457675 Medica l .8 [place] 2019-11-02 2019-11-02 Outpatient R LUPE [facility] [id number] Univers 10:00:00 10:00:[address] [facility] 2019-11-02 2019-11-02 Travel 1.2.840.1 1.2.915.392 4966 3264 Univers 00:00:00 00:00:00 95596.1.1 350.1.13.10 ity of 3.104.2.7 4.2.7.3.698 [place] .3.608405 084.8 Medica l .8 [place] 2019-10-27 2019-10-27 Outpatient R MAX AGUIAR [facility] [id number] Univers 11:00:00 11:00:00 MAX AGUIAR ity of [facility] 2019-10-27 2019-10-27 Telemedici Cosme, 1.2.840.5 [id number] Univers 09:14:10 09:44:10 ne Visit Max Goodson 18319.1.1 i ty of 3.104.2.7 [place] .3.479669 Medica l .8 [place] 2019-10-27 2019-10-27 Travel 1.2.840.1 1.2.309.914 2046 7263 Univers 00:00:00 00:00:00 05452.1.1 350.1.13.10 ity of 3.104.2.7 4.2.7.3.698 [place] .3.670229 084.8 Medica l .8 [place] 2019-10-26 2019-10-26 Emergency X Guerline [facility] ERT [id number] Univers 18:20:17 23:24:00 ity of [facility] 2019-10-26 2019-10-26 Emergency Guerline Barron 1.2.840.0 [id number] Univers 18:20:17 23:24:00 Diana 00679.1.1 ity of 3.104.2.7 [place] .3.938778 Medica l .8 [facility] 2019-10-26 2019-10-26 Travel 1.2.840.1 1.2.335.702 7191 2266 Univers 00:00:00 00:00:00 08325.1.1 350.1.13.10 ity of 3.104.2.7 4.2.7.3.698 [place] .3.766953 084.8 Medica l .8 [place] 2019-10-19 2019-10-19 Telemedici Robert, 1.2.840.1 [id number] Univers 08:13:09 16:50:27 ne Visit Zhen 65553.1.1 ity of 3.104.2.7 [place] .3.000537 Medica l .8 [place] 2019-10-19 2019-10-19 Outpatient R ROBERT [facility] [id number] Univers 15:00:00 15:00:00 ZHEN ity of [facility] 2019-10-14 2019-10-14 [facility] [id number] Univers 09:15:00 09:15:00 REBECA ity of [facility] 2019-10-13 2019-10-13 Transition Alvin, 1.2.840.5 [id number] Univers 00:00:00 00:00:00 of Care Angelique L 22403.1.1 ity of 3.104.2.7 [place] .3.442789 Medica l .8 [place] 2019-10-12 2019-10-12 Outpatient R LUPE [facility] 1026 [id number] Univers 13:40:00 13:40:00 CECILIO ity of [facility] 2019-10-11 2019-10-12 Outpatient X LAISHA [facility] [id number] Univers 15:32:09 13:01:00 THADDEUS ity of [facility] 2019-10-11 2019-10-12 Emergency Brady Dumont F 1.2.840.1 10 [id number] Univers 15:32:09 13:01:00 Thaddeus Interiano 72272.1.1 ity of 3.104.2.7 [place] .3.738933 Medica l .8 [place] 2019-10-11 2019-10-11 Outpatient R RYDER, [facility] [id number] Univers 15:20:00 15:20:00 JENNIFER it y of [facility] 2019-10-11 2019-10-11 Orders Doctor 1.2.840.0 [id number] Univers 00:00:00 00:00:00 Only Unassigned, 84340.1.1 ity of [place] 3.104.2.7 [place] .3.953617 Medica l .8 [place] 2019-10-11 2019-10-11 Telephone Sindy, 1.2.840.4 [id number] Univers 00:00:00 00:00:00 Wissam 16417.1.1 ity of [place] 3.104.2.7 [place] .3.856372 Medica l .8 [place] 2019-10-11 2019-10-11 Travel 1.2.840.1 1.2.092.493 9361 9778 Univers 00:00:00 00:00:00 75457.1.1 350.1.13.10 ity of 3.104.2.7 4.2.7.3.698 [place] .3.802966 084.8 Medica l .8 [place] 2019-10-08 2019-10-08 Travel 1.2.840.1 1.2.258.849 0556 1945 Univers 00:00:00 00:00:00 27668.1.1 350.1.13.10 ity of 3.104.2.7 4.2.7.3.698 [place] .3.725377 084.8 Medica l .8 [place] 2019-10-07 2019-10-07 Refill Parish, 1.2.840.2 [id number] Univers 00:00:00 00:00:00 Al 04716.1.1 ity of 3.104.2.7 [place] .3.041496 Medica l .8 [place] 2019-09-16 2019-09-16 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 Vincent Renate Pickens 1.2.840.6 [id number] Univers 09:53:19 10:08:19 Visit 2, [facility] 19189.1.1 i ty of 3.104.2.7 [place] .3.193690 Medica l .8 [place] 2019-09-16 2019-09-16 Outpatient R [facility] [id number] Univers 09:45:00 09:45:00 RENATE ity of [facility] 2019-09-16 2019-09-16 Telephone Vincent, 1.2.840.0 [id number] Univers 00:00:00 00:00:00 Renate Pickens 94310.1.1 i ty of 3.104.2.7 [place] .3.396280 Medica l .8 [place] 2019-09-13 2019-09-13 Telephone Ravendevan, 1.2.840.4 [id number] Univers 00:00:00 00:00:00 Krystina 80317.1.1 ity of [place] 3.104.2.7 [place] .3.711698 Medica l .8 [place] 2019-09-12 2019-09-12 Nurse Ilan, 1.2.840.9 [id number] Univers 00:00:00 00:00:00 Triage Catherine Acosta 52501.1.1 ity of 3.104.2.7 [place] .3.520667 Medica l .8 [place] 2019-09-11 2019-09-11 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 Cecilio Andrade 1.2.840. 7 [id number] Univers 08:51:15 09:06:15 Visit Mehdi [facility] Main 51471.1.1 ity of 3.104.2.7 [place] .3.772535 Medica l .8 [place] 2019-09-11 2019-09-11 [facility] [id number] Univers 08:45:00 08:45:[address] [facility] 2019-09-11 2019-09-11 Orders Doctor 1.2.840.3 [id number] Univers 00:00:00 00:00:00 Only Unassigned, 10094.1.1 ity of Katie 3.104.2.7 [place] .3.145762 Medica l [address] [place] [address] 2019-09-09 2019-09-10 Telemedici Lupe, 1.2.840.0 [id number] Univers 16:36:59 17:43:10 ne Visit Cecilio Payne 96868.1.1 ity of 3.104.2.7 [place] .3.274214 Medica l .[address] [place] [address] 2019-09-10 2019-09-10 Refill Jones, 1.2.840.6 [id number] Univers 00:00:00 00:00:00 Wentong 56045.1.1 ity of 3.104.2.7 [place] .3.886440 Medica l .8 [place] 2019-09-09 2019-09-09 [facility] [id number] Univers 08:30:00 08:30:00 REBECA alba of [facility] 2019-09-06 2019-09-06 Nurse Cecilio Andrade 1.2.840.1 1 [id number] Univers 15:36:43 16:16:43 Visit NurseChristen 63963.1.1 ity of 3.104.2.7 [place] .3.365732 Medica l .[address] [place] [address] 2019-09-06 2019-09-06 [facility] [id number] Univers 15:20:00 15:20:[address] [facility] 2019-08-31 2019-08-31 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 Joel Floriany Nelia 1.2.840.9 [id number] Univers 08:33:45 08:48:45 Visit 2, [facility] 95066.1.1 i ty of 3.104.2.7 [place] .3.358257 Medica l .8 [place] 2019-08-31 2019-08-31 Outpatient R [facility] [id number] Univers 08:30:00 08:30:00 RENATE ity of [facility] 2019-08-31 2019-08-31 Telephone Sindy, 1.2.840.2 [id number] Univers 00:00:00 00:00:00 Krystina 41903.1.1 ity of [place] 3.104.2.7 [place] .3.337297 Medica l .8 [place] 2019-08-30 2019-08-30 [facility] [place] 1.2.840.3 [id number] Univers 14:45:00 23:59:00 Encounter Simi, Remote Device Check At Home - 1 4350.1.1 ity of 3.104.2.7 [place] .3.610298 Medica l .8 [place] 2019-08-30 2019-08-30 Outpatient R [facility]ILVERIO [facility] [id number] Univers 14:45:00 14:45:00 HO BURKS it y of [facility] 2019-08-30 2019-08-30 Refill [place], 1.2.840.9 [id number] Univers 00:00:00 00:00:00 Al 01641.1.1 ity of 3.104.2.7 [place] .3.705705 Medica l .8 [place] 2019-08-27 2019-08-27 Office Bibiana 1.2.840.1 [id number] Univers 15:11:00 15:40:29 Visit Ioana 52356.1.1 it y of 3.104.2.7 [place] .3.681485 Medica l .8 [place] 2019-08-27 2019-08-27 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 Ioana Mccarty 1.2.840.3 [id number] Univers 11:33:43 15:19:04 Visit [facility] 50165.1.1 ity of 3.104.2.7 [place] .3.980217 Medica l .8 [place] 2019-08-27 2019-08-27 Nurse Cecilio Andrade 1.2.840.1 1 [id number] Univers 14:50:46 15:10:46 Visit Nurse, [facility] 20274.1.1 ity of 3.104.2.7 [place] .3.144180 Medica l .8 [place] 2019-08-27 2019-08-27 Office Renate Florian 1.2.840.0 [id number] Univers 10:41:18 11:11:18 Visit Practitioner, Heart Failure Nurse 1435 0.1.1 ity of 3.104.2.7 [place] .3.397881 Medica l .8 [place] 2019-08-27 2019-08-27 [facility] [facility] [id number] Univers 10:30:00 10:30:00 RENATE ity of [facility] 2019-08-27 2019-08-27 Telephone Sindy, 1.2.840.8 [id number] Univers 00:00:00 00:00:00 Wissam 77150.1.1 ity of [place] 3.104.2.7 [place] .3.955170 Medica l .8 Branch 2019-08-26 2019-08-26 Telephone Sindy, 1.2.840.3 [id number] Univers 00:00:00 00:00:00 Wissam 49806.1.1 ity of [place] 3.104.2.7 [place] .3.077638 Medica l .8 Branch 2019-08-24 2019-08-25 Emergency Gaurav Wang 1.2.840.0 [id number] Univers 15:07:23 18:11:00 Maya Charles 40510.1.1 ity of 3.104.2.7 [place] .3.677137 Medica l .8 Branch 2019-08-24 2019-08-25 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 Aye Allysonnoemi 1.2.840.4 [id number] Univers 10:54:10 14:18:16 Visit [facility] 30946.1.1 ity of 3.104.2.7 [place] .3.142656 Medica l .8 Branch 2019-08-24 2019-08-24 Office Aye, 1.2.840.6 [id number] [id number] Univers 09:09:04 09:49:04 Visit Tenoemi 90879.1.1 ity of 3.104.2.7 [place] .3.896845 Medica l .8 Branch 2019-08-24 2019-08-24 Outpatient R AYE [facility] [id number] Univers 09:40:00 09:40:00 TEJO ity of [facility] 2019-08-24 2019-08-24 Telephone Abbe, 1.2.840.8 [id number] Univers 00:00:00 00:00:00 Chiquis 68370.1.1 ity of 3.104.2.7 [place] .3.653954 Medica l .8 Branch 2019-08-23 2019-08-23 Orders Doctor 1.2.840.1 [id number] Univers 00:00:00 00:00:00 Only Unassigned, 11300.1.1 ity of [place] 3.104.2.7 [place] .3.228974 Medica l .8 Branch 2019-08-20 2019-08-20 Telephone Sindy, 1.2.840.7 [id number] Univers 00:00:00 00:00:00 Krystina 49836.1.1 ity of [place] 3.104.2.7 [place] .3.827735 Medica l .8 Branch 2019-08-17 2019-08-19 Emergency Socorro Reeves 1.2.840.1 [id number] Univers 15:33:46 14:53:00 Wallace Lea 27588.1.1 it y of 3.104.2.7 [place] .3.759294 Medica l .8 Branch 2019-08-17 2019-08-17 Outpatient R LUPE [facility] [id number] Univers 15:00:00 15:00:00 CECILIO alba of [facility] 2019-08-17 2019-08-17 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 Krystina Adkins 1.2.840 .7 [id number] Univers 08:11:44 08:26:44 Visit 2, [facility] 05786.1.1 i ty of 3.104.2.7 [place] .3.735763 Medica l .8 [place] 2019-08-17 2019-08-17 Telephone Lupe 1.2.840.0 [id number] Univers 00:00:00 00:00:00 Cecilio Payne 86131.1.1 ity of 3.104.2.7 [place] .3.412000 Medica l .8 [place] 2019-08-13 2019-08-13 Nurse Cecilio Andrade 1.2.840.1 1 [id number] Univers 07:52:40 08:12:40 Visit Nurse, [facility] Antico 31951.1.1 ity of 3.104.2.7 [place] .3.398267 Medica l .8 [place] 2019-08-13 2019-08-13 Patient Doctor [facility] 1.2.840.114 [id number] Univers 00:00:00 00:00:00 Secure Msg Unassigned, PRIMARY 350.1.13.10 ity of [place] CARE 4.2.7.2.686 Britta LOFTON [phone] Va dical 388 [place] 2019-08-11 2019-08-11 Telephone Sindy 1.2.840.0 [id number] Univers 00:00:00 00:00:00 Krystina 98672.1.1 ity of [place] 3.104.2.7 [place] .3.061852 Medica l .8 [place] 2019-08-11 2019-08-11 Patient Doctor FEI 1.2.840.114 [id number] Univers 00:00:00 00:00:00 Secure Msg Unassigned, JP 350.1.13.10 ity of [place] HOSPITAL 4.2.7.2.686 [place] as [phone] [facility] 019 [place] 2019-08-10 2019-08-10 Office Sindy, 1.2.840.7 [id number] Univers 14:14:41 15:32:09 Visit Krystina 11833.1.1 ity of [place] 3.104.2.7 [place] .3.236174 Medica l .8 [place] 2019-08-10 2019-08-10 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 Krystina Adkins 1.2.840 .2 [id number] Univers 08:42:40 08:57:40 Visit 2, [facility] 38251.1.1 i ty of 3.104.2.7 [place] .3.168025 Medica l .8 [place] 2019-08-10 2019-08-10 Orders Doctor 1.2.840.9 [id number] Univers 00:00:00 00:00:00 Only Unassigned, 87055.1.1 ity of [place] 3.104.2.7 [place] .3.779297 Medica l .8 [place] 2019-08-09 2019-08-09 Telephone [facility], 1.2.840.1 [id number] Univers 00:00:00 00:00:00 Krystina 54404.1.1 ity of [place] 3.104.2.7 [place] .3.482873 Medica l .8 [place] 2019-08-09 2019-08-09 Telephone [facility], 1.2.840.9 [id number] Univers 00:00:00 00:00:00 Benito 03326.1.1 ity of [place] 3.104.2.7 [place] .3.824499 Medica l .8 [place] 2019-08-08 2019-08-08 Emergency X NGOZI, [facility] ERT [id number] Univers 14:32:47 19:33:00 HAFSA ity of [facility] 2019-08-08 2019-08-08 Emergency Ngozi, 1.2.840.7 [id number] [id number] Univers 14:32:47 19:33:00 Hafsa Ricardo 43991.1.1 ity of 3.104.2.7 [place] .3.697403 Medica l .8 [place] 2019-08-06 2019-08-06 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 Krystina Adkinsim 1.2.840 .2 [id number] Univers 08:45:32 09:00:32 Visit 2, [facility] Lab 55832.1.1 i ty of 3.104.2.7 [place] .3.737081 Medica l .8 [place] 2019-08-06 2019-08-06 Telephone Sindy, 1.2.840.7 [id number] Univers 00:00:00 00:00:00 Krystina 57318.1.1 ity of [place] 3.104.2.7 [place] .3.366871 Medica l .8 [place] 2019-08-06 2019-08-06 Orders Doctor 1.2.840.2 [id number] Univers 00:00:00 00:00:00 Only Unassigned, 65317.1.1 ity of [place] 3.104.2.7 [place] .3.105591 Medica l .8 [place] 2019-08-05 2019-08-05 Emergency Trae, 1.2.840.9 [id number] [id number] Univers 14:05:21 18:12:00 Lissa White 07776.1.1 ity of 3.104.2.7 [place] .3.644298 Medica l .8 [place] 2019-08-05 2019-08-05 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 Krystina Adkinsim 1.2.840 .9 [id number] Univers 09:07:19 09:22:19 Visit 2, [facility] Lab 46459.1.1 i ty of 3.104.2.7 [place] .3.275398 Medica l .8 [place] 2019-08-05 2019-08-05 Telephone Lupe, 1.2.840.6 [id number] Univers 00:00:00 00:00:00 Cecilio Payne 85394.1.1 ity of 3.104.2.7 [place] .3.069405 Medica l .8 [place] 2019-08-05 2019-08-05 Telephone Sindy, 1.2.840.8 [id number] Univers 00:00:00 00:00:00 Krystina 20897.1.1 ity of [place] 3.104.2.7 [place] .3.134822 Medica l .8 Branch 2019-08-02 2019-08-02 Telephone Lupe, 1.2.840.1 [id number] Univers 00:00:00 00:00:00 Cecilio Payne 39553.1.1 ity of 3.104.2.7 [place] .3.160797 Medica l .8 Branch 2019-07-28 2019-07-28 Telephone Lupe, 1.2.840.4 [id number] Univers 00:00:00 00:00:00 Cecilio Payne 27183.1.1 ity of 3.104.2.7 [place] .3.258455 Medica l .8 Branch 2019-07-27 2019-07-27 [facility], 1.2.840.5 [id number] [id number] Univers 00:00:00 00:00:00 Ioana 63110.1.1 it y of 3.104.2.7 [place] .3.120394 Medica l .8 Branch 2019-07-22 2019-07-22 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 Clayton, 1.2.840.6 [id number] Univers 09:21:33 10:51:33 Visit Han Silva 15223.1.1 ity of 3.104.2.7 [place] .3.779786 Medica l .8 Branch 2019-07-22 2019-07-22 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 Krystina Adkins 1.2.840 .3 [id number] Univers 09:22:17 09:37:17 Visit Mehdi Cornejo Lab Main 31975.1.1 ity of 3.104.2.7 [place] .3.165149 Medica l .8 Branch 2019-07-22 2019-07-22 Orders Doctor 1.2.840.8 [id number] Univers 00:00:00 00:00:00 Only Unassigned, 93529.1.1 ity of [place] 3.104.2.7 [place] .3.808825 Medica l .8 [place] 2019-07-22 2019-07-22 Telephone Sindy, 1.2.840.0 [id number] Univers 00:00:00 00:00:00 Krystina 67237.1.1 ity of [place] 3.104.2.7 [place] .3.273754 Medica l .8 [place] 2019-07-22 2019-07-22 Telephone Andrade, 1.2.840.8 [id number] Univers 00:00:00 00:00:00 Cecilio Payne 12910.1.1 ity of 3.104.2.7 [place] .3.682451 Medica l .8 [place] 2019-07-21 2019-07-21 Telephone Dhavalt, 1.2.840.6 [id number] [id number] Univers 00:00:00 00:00:00 Shedominicyar 75274.1.1 it y of 3.104.2.7 [place] .3.826727 Medica l .8 [place] 2019-07-20 2019-07-20 Telephone Lupe, 1.2.840.0 [id number] Univers 00:00:00 00:00:00 Cecilio Payne 71758.1.1 ity of 3.104.2.7 [place] .3.916212 Medica l .8 [place] 2019-07-16 2019-07-16 Nurse Jennifer Johns 1.2.840.9 [id number] [facility] 07:49:38 08:09:38 Visit Nurse, [facility] Giselle 45615.1.1 ity of 3.104.2.7 [place] .3.866723 Medica l .8 [place] 2019-07-16 2019-07-16 Refill Dhavalt, 1.2.840.7 [id number] Univers 00:00:00 00:00:00 Sheharyar 58029.1.1 it y of 3.104.2.7 [place] .3.447651 Medica l .8 [place] 2019-07-14 2019-07-14 Telephone Sindy, 1.2.840.7 [id number] Univers 00:00:00 00:00:00 Krystina 12634.1.1 ity of [place] 3.104.2.7 [place] .3.757714 Medica l .8 [place] 2019-07-13 2019-07-13 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 Krystina Adkins 1.2.840 .2 [id number] Univers 11:50:32 12:05:32 Visit 2, [facility] Lab 80968.1.1 i ty of 3.104.2.7 [place] .3.785224 Medica l .8 [place] 2019-07-13 2019-07-13 Office Parish, 1.2.840.1 [id number] Univers 10:53:13 11:43:10 Visit Al 82395.1.1 ity of 3.104.2.7 [place] .3.125147 Medica l .8 [place] 2019-07-07 2019-07-07 Office Jones, 1.2.840.6 [id number] Univers 14:47:39 15:41:55 Visit Zhen 49846.1.1 ity of 3.104.2.7 [place] .3.593117 Medica l .8 [place] 2019-07-07 2019-07-07 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 Krystina Adkins 1.2.840 .7 [id number] Univers 08:11:57 08:26:57 Visit 2, [facility] Lab 55047.1.1 i ty of 3.104.2.7 [place] .3.482625 Medica l .8 [place] 2019-07-07 2019-07-07 Orders Doctor 1.2.840.5 [id number] Univers 00:00:00 00:00:00 Only Unassigned, 61501.1.1 ity of [place] 3.104.2.7 [place] .3.528175 Medica l .8 [place] 2019-07-07 2019-07-07 Patient Doctor [facility] 1.2.840.114 [id number] Univers 00:00:00 00:00:00 Secure Msg Unassigned, MULTISPEC 350.1.13.10 ity of [place] IALTY 4.2.7.2.686 Britta [facility] [phone] [facility] marium AND CORNELIUS 027 [place] [facility] 2019-07-06 2019-07-06 Office Lupe, 1.2.840.4 [id number] Univers 13:16:34 15:03:57 Visit Cecilio Elmer 32638.1.1 ity of 3.104.2.7 [place] .3.577742 Medica l .8 Branch 2019-07-05 2019-07-05 Telephone Sindy, 1.2.840.5 [id number] Univers 00:00:00 00:00:00 Wissamomo 56459.1.1 ity of [place] 3.104.2.7 [place] .3.510652 Medica l .8 [place] 2019-06-25 2019-06-25 Telephone Jones, 1.2.840.7 [id number] Univers 00:00:00 00:00:00 Zhen 96402.1.1 ity of 3.104.2.7 [place] .3.194925 Medica l .8 [place] 2019-06-23 2019-06-23 Emergency Navneet, 1.2.840.9 [id number] Univers 09:03:15 11:38:00 Amisha Hennessy 79998.1.1 ity of 3.104.2.7 [place] .3.148815 Medica l .8 [place] 2019-06-23 2019-06-23 Orders Doctor 1.2.840.6 [id number] Univers 00:00:00 00:00:00 Only Unassigned, 40875.1.1 ity of [place] 3.104.2.7 [place] .3.778732 Medica l .8 [place] 2019-06-11 2019-06-14 Office Summer Kenney October 1.2.840.1 [id number] Univers 14:16:47 21:39:36 Visit Kaitlin Dent 31258.1.1 ity of 3.104.2.7 [place] .3.639577 Medica l .8 [place] 2019-06-14 2019-06-14 Nurse Jennifer Johns 1.2.840.5 [id number] Univers 07:47:22 08:07:22 Visit Nurse [facility] Kevin 08521.1.1 ity of 3.104.2.7 [place] .3.282464 Medica l .8 [place] 2019-06-09 2019-06-09 Telephone Lupe 1.2.840.9 [id number] Univers 00:00:00 00:00:00 Cecilio Payne 04674.1.1 ity of 3.104.2.7 [place] .3.840904 Medica l .8 [place] 2019-06-07 2019-06-07 Nurse Jennifer Johns 1.2.840.8 [id number] Univers 07:34:15 08:34:15 Visit Nurse, [facility] Anticotodd 55328.1.1 ity of 3.104.2.7 [place] .3.072561 Medica l .8 [place] 2019-06-07 2019-06-07 Refill Lupe 1.2.840.7 [id number] Univers 00:00:00 00:00:00 Cecilio Payne 13559.1.1 ity of 3.104.2.7 [place] .3.722265 Medica l .[address] [place] [address] 2019-06-04 2019-06-05 Outpatient X DEAN [facility] [id number] Univers 18:49:58 13:00:00 MAYA ity of [facility] 2019-06-04 2019-06-05 Emergency Bryan Jose 1.2.840.8 [id number] Univers 18:49:58 13:00:00 Maya Charles 17142.1.1 ity of 3.104.2.7 [place] .3.940016 Medica l .8 [place] 2019-06-03 2019-06-03 [facility] Krystina Adkinsahim 1.2.840.4 [id number] Univers 07:48:00 23:59:00 Encounter Abu-Sharifeh, Tareq 04753.1.1 ity of Outpt-Simi, Ccl 3.104.2.7 [place] .3.128921 Medica l .8 Branch 2019-06-02 2019-06-02 Telephone Jones, 1.2.840.0 [id number] [id number] Univers 00:00:00 00:00:00 Wentclau 95211.1.1 ity of 3.104.2.7 [place] .3.636967 Medica l .8 Branch 2019-06-02 2019-06-02 Refill Lupe, 1.2.840.4 [id number] Univers 00:00:00 00:00:00 Cecilio Payne 15324.1.1 ity of 3.104.2.7 [place] .3.068545 Medica l .8 Branch 2019-06-01 2019-06-01 Office Lupe, 1.2.840.0 [id number] Univers 15:20:39 16:42:40 Visit Cecilio Payne 47323.1.1 ity of 3.104.2.7 [place] .3.956367 Medica l .8 Branch 2019-05-27 2019-05-27 [facility] [place] 1.2.840.4 [id number] Univers 09:30:00 23:59:00 Encounter Outpt-Simi, Pacemaker/Icd 97221.1.1 ity of 3.104.2.7 [place] .3.975686 Medica l .8 Branch 2019-05-27 2019-05-27 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 Krystina Adkins 1.2.840 .9 [id number] Univers 12:28:28 12:43:28 Visit 1, [facility] 77526.1.1 i ty of 3.104.2.7 [place] .3.569461 Medica l .8 Branch 2019-05-27 2019-05-27 Telephone Sindy 1.2.840.2 [id number] Univers 00:00:00 00:00:00 Krystina 89911.1.1 ity of [place] 3.104.2.7 [place] .3.922196 Medica l .8 Branch 2019-05-26 2019-05-26 Telephone Cosme, 1.2.840.5 [id number] Univers 00:00:00 00:00:00 Max Goodson 55203.1.1 it y of 3.104.2.7 [place] .3.187044 Medica l .8 [place] 2019-05-26 2019-05-26 Telephone Sindy, 1.2.840.9 [id number] Univers 00:00:00 00:00:00 Wissam 23040.1.1 ity of [place] 3.104.2.7 [place] .3.090622 Medica l .8 [place] 2019-05-26 2019-05-26 Telephone Sindy, 1.2.840.2 [id number] Univers 00:00:00 00:00:00 Dennisesam 80383.1.1 ity of [place] 3.104.2.7 [place] .3.030094 Medica l .8 [place] 2019-05-25 2019-05-25 Office Sindy, 1.2.840.2 [id number] Univers 14:04:14 17:12:42 Visit Krystina 58457.1.1 ity of [place] 3.104.2.7 [place] .3.695769 Medica l .8 [place] 2019-05-25 2019-05-25 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 Krystina Adkins [place] 1.2.840 .8 [id number] Univers 15:10:17 15:25:17 Visit [facility] 21584.1.1 ity of 3.104.2.7 [place] .3.220878 Medica l .8 [place] 2019-05-25 2019-05-25 Telephone Lupe, 1.2.840.2 [id number] Univers 00:00:00 00:00:00 Cecilio Payne 16818.1.1 ity of 3.104.2.7 [place] .3.212974 Medica l .8 [place] 2019-05-18 2019-05-18 Refill Parish, 1.2.840.2 [id number] Univers 00:00:00 00:00:00 Al 28282.1.1 ity of 3.104.2.7 [place] .3.512309 Medica l .8 [place] 2019-05-14 2019-05-14 Nurse Jennifer Johns 1.2.840.6 [id number] Univers 07:47:18 08:07:18 Visit Nurse, [facility] Anticotodd 84872.1.1 ity of 3.104.2.7 [place] .3.638488 Medica l .8 Branch 2019-05-14 2019-05-14 Telephone Lupe 1.2.840.7 [id number] Univers 00:00:00 00:00:00 Cecilio Elmer 19741.1.1 ity of 3.104.2.7 [place] .3.142567 Medica l .8 [place] 2019-05-13 2019-05-13 Office Lupe 1.2.840.1 [id number] Univers 09:44:57 11:58:27 Visit Cecilio Payne 29016.1.1 ity of 3.104.2.7 [place] .3.709884 Medica l .8 [place] 2019-05-13 2019-05-13 Orders Doctor 1.2.840.1 [id number] Univers 00:00:00 00:00:00 Only Unassigned, 95767.1.1 ity of Katie 3.104.2.7 [place] .3.560663 Medica l .8 [place] 2019-05-10 2019-05-10 Telephone Sindy, 1.2.840.7 [id number] Univers 00:00:00 00:00:00 Wissamomo 98819.1.1 ity of [place] 3.104.2.7 [place] .3.367099 Medica l .8 [place] 2019-05-07 2019-05-07 Nurse Rebeca Cabrera 1.2.840.8 [id number] Univers 08:00:10 08:20:10 Visit Nurse [facility] Anticotodd 41831.1.1 ity of 3.104.2.7 [place] .3.021822 Medica l .8 Branch 2019-05-07 2019-05-07 Refottoniel Valiente, 1.2.840.4 [id number] Univers 00:00:00 00:00:00 Al 61594.1.1 ity of 3.104.2.7 [place] .3.311245 Medica l .8 Branch 2019-05-02 2019-05-05 Emergency Amisha Toth 1.2.840.8 [id number] Univers 15:17:10 11:08:00 Thaddeus Interiano 01064.1.1 ity of 3.104.2.7 [place] .3.669492 Medica l .8 Branch 2019-04-27 2019-04-27 Telephone Sindy, 1.2.840.5 [id number] Univers 00:00:00 00:00:00 Krystina 52132.1.1 ity of [place] 3.104.2.7 [place] .3.410983 Medica l .8 Branch 2019-04-26 2019-04-26 Surgery [facility]1983, 1.2.840.6 [id number] Univers 09:55:00 10:07:00 Dagoberto Calderon 51697.1.1 ity of 3.104.2.7 [place] .3.270751 Medica l .8 Branch 2019-04-26 2019-04-26 [facility], 1.2.840.5 [id number] Univers 06:30:00 09:07:00 Encounter Dagoberto Calderon 49473.1.1 i ty of 3.104.2.7 [place] .3.498527 Medica l .8 Branch 2019-04-26 2019-04-26 Anesthesia Genaro Glasgow 1.2.840.4 [id number] Univers 08:21:00 08:34:00 Event Evan Allred 70568.1.1 ity of 3.104.2.7 [place] .3.730550 Medica l .8 Branch 2019-04-26 2019-04-26 Orders Doctor 1.2.840.3 [id number] Univers 00:00:00 00:00:00 Only Unassigned, 20685.1.1 ity of [place] 3.104.2.7 [place] .3.977269 Medica l .8 [place] 2019-04-21 2019-04-21 [facility], 1.2.840.7 [id number] Univers 00:00:00 00:00:00 Wissam 75415.1.1 ity of [place] 3.104.2.7 [place] .3.008867 Medica l .8 [place] 2019-04-20 2019-04-20 [facility], 1.2.840.8 [id number] Univers 09:30:00 23:59:00 Encounter Dennisesam 35436.1.1 it y of [place] 3.104.2.7 [place] .3.312803 Medica l .8 [place] 2019-04-20 2019-04-20 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 Cale Silverman 1.2.840.1 [id number] Univers 12:05:39 14:18:21 Visit Vls-Lab 45124.1.1 ity of 3.104.2.7 [place] .3.381195 Medica l .[address] [place] [address] 2019-04-20 2019-04-20 [facility], 1.2.840.6 [id number] Univers 09:29:00 09:29:00 Encounter Krystina 65288.1.1 it y of [place] 3.104.2.7 [place] .3.865699 Medica l .8 [place] 2019-04-16 2019-04-16 [facility], 1.2.840.2 [id number] Univers 00:00:00 00:00:00 Wissam 90873.1.1 ity of [place] 3.104.2.7 [place] .3.716541 Medica l .8 [place] 2019-04-13 2019-04-13 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 RavendolorescaitlynKrystina [place] 1.2.840 .3 [id number] Univers 08:24:48 08:39:48 Visit 2, [facility] Lab 46166.1.1 i ty of 3.104.2.7 [place] .3.116782 Medica l .8 Branch 2019-04-12 2019-04-12 Surgery [facility] 1928[facility]1983, 1.2.840.7 [id number] Univers 08:33:00 08:45:00 Dagoberto Calderon 54287.1.1 ity of 3.104.2.7 [place] .3.162278 Medica l .8 Branch 2019-04-12 2019-04-12 [facility], 1.2.840.3 [id number] Univers 05:53:00 08:10:00 Encounter Dagoberto Calderon 23839.1.1 i ty of 3.104.2.7 [place] .3.366684 Medica l .8 Branch 2019-04-12 2019-04-12 Anesthesia Genaro Glasgow 1.2.840.8 [id number] Univers 07:24:00 07:39:00 Event Evan Allred 35965.1.1 ity of 3.104.2.7 [place] .3.320467 Medica l .8 Branch 2019-04-06 2019-04-06 Office Sindy 1.2.840.1 [id number] Univers 13:04:06 17:02:31 Visit Krystina 05294.1.1 ity of [place] 3.104.2.7 [place] .3.167501 Medica l .8 Branch 2019-04-06 2019-04-06 Refottoniel Jones 1.2.840.6 [id number] Univers 00:00:00 00:00:00 hZen 28008.1.1 ity of 3.104.2.7 [place] .3.042118 Medica l .8 Branch 2019-04-05 2019-04-05 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 Krystina Adkins [place] 1.2.840 .1 [id number] Univers 08:19:11 08:34:11 Visit 2, Mehdi Chambers 83508.1.1 i ty of 3.104.2.7 [place] .3.227820 Medica l .8 Branch 2019-04-05 2019-04-05 Refill Jones, 1.2.840.7 [id number] Univers 00:00:00 00:00:00 Wentong 67771.1.1 ity of 3.104.2.7 [place] .3.411184 Medica l .8 Branch 2019-04-01 2019-04-01 Telephone Sindy, 1.2.840.7 [id number] Univers 00:00:00 00:00:00 Wissam 68579.1.1 ity of [place] 3.104.2.7 [place] .3.312836 Medica l .8 Branch 2019-04-01 2019-04-01 Refill Parish, 1.2.840.6 [id number] Univers 00:00:00 00:00:00 Al 00015.1.1 ity of 3.104.2.7 [place] .3.698083 Medica l .8 Branch 2019-03-29 2019-03-29 [facility], 1.2.840.8 [id number] Univers 09:16:00 09:28:00 Dagoberto Calderon 04621.1.1 ity of 3.104.2.7 [place] .3.354651 Medica l .8 [place] 2019-03-29 2019-03-29 [facility], 1.2.840.0 [id number] Univers 06:36:00 09:07:00 Encounter Dagoberto Calderon 08460.1.1 i ty of 3.104.2.7 [place] .3.490152 Medica l .8 [place] 2019-03-29 2019-03-29 Anesthesia [place], 1.2.840.0 [id number] Univers 08:13:00 08:28:00 Event Genaro White 76658.1.1 it y of 3.104.2.7 [place] .3.080294 Medica l .8 Branch 2019-03-24 2019-03-24 Office [place], 1.2.840.4 [id number] Univers 11:25:28 11:55:28 Visit Ioana 29695.1.1 it y of 3.104.2.7 [place] .3.982640 Medica l .8 Branch 2019-03-24 2019-03-24 Telephone Sindy, 1.2.840.1 [id number] Univers 00:00:00 00:00:00 Dennisesam 55505.1.1 ity of [place] 3.104.2.7 [place] .3.515801 Medica l .8 Branch 2019-03-16 2019-03-16 Telephone Sindy, 1.2.840.5 [id number] Univers 00:00:00 00:00:00 Dennisesamomo 40737.1.1 ity of [place] 3.104.2.7 [place] .3.210119 Medica l .8 Branch 2019-03-12 2019-03-12 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 RavenKrystina hartman [place] 1.2.840 .9 [id number] Univers 08:25:07 08:40:07 Visit 2, Adc Lab 77289.1.1 i ty of 3.104.2.7 [place] .3.769621 Medica l .8 Branch 2019-03-12 2019-03-12 Orders Doctor 1.2.840.7 [id number] Univers 00:00:00 00:00:00 Only Unassigned, 90465.1.1 ity of [place] 3.104.2.7 [place] .3.557059 Medica l .8 Branch 2019-03-12 2019-03-12 Telephone Sindy, 1.2.840.8 [id number] Univers 00:00:00 00:00:00 Dennisesam 67873.1.1 ity of [place] 3.104.2.7 [place] .3.787547 Medica l .8 Branch 2019-03-11 2019-03-11 Refill Lupe, 1.2.840.8 [id number] Univers 00:00:00 00:00:00 Cecilio Payne 52489.1.1 ity of 3.104.2.7 [place] .3.536183 Medica l .8 Branch 2019-03-10 2019-03-10 Patient Doctor [facility] 1.2.840.114 [id number] Univers 00:00:00 00:00:00 Secure Msg Unassigned, [facility] 350.1.13.10 ity [place] [facility] [phone] [facility] Primary & 059 [facility] 2019-03-10 2019-03-10 Refill Lupe, 1.2.840.1 [id number] Univers 00:00:00 00:00:00 Cecilio Payne 27683.1.1 ity of 3.104.2.7 [place] .3.270309 Medica l .8 Branch 2019-03-09 2019-03-09 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 Dagoberto Luna 1.2.840.1 10 [id number] Univers 11:19:38 11:34:38 Visit 1, Adc Lab 79831.1.1 i ty of 3.104.2.7 [place] .3.964646 Medica l .8 Branch 2019-03-09 2019-03-09 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 Krystina Adkins 1.2.840 .2 [id number] Univers 10:50:32 11:05:32 Visit 2, Adc Lab 04679.1.1 i ty of 3.104.2.7 [place] .3.311466 Medica l .8 Branch 2019-03-09 2019-03-09 Patient Lupe [facility] 1.2.840.114 [id number] Univers 00:00:00 00:00:00 Secure Msg Cecilio [place] 350.1.13.10 ity of [place] 4.2.7.2.686 Britta calderon [facility] [phone] [facility] [address] [facility] 2019-03-09 2019-03-09 Orders Doctor 1.2.840.5 [id number] Univers 00:00:00 00:00:00 Only Unassigned, 98360.1.1 ity of [place] 3.104.2.7 [place] .3.048459 Medica l .8 Branch 2019-03-03 2019-03-03 Telephone Sindy 1.2.840.7 [id number] Univers 00:00:00 00:00:00 Dennisesam 45567.1.1 ity of [place] 3.104.2.7 [place] .3.723374 Medica l .8 [place] 2019-03-02 2019-03-02 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 Krystina Adkins 1.2.840 .2 [id number] Univers 10:21:05 10:36:05 Visit 2, Adc Lab 06388.1.1 i ty of 3.104.2.7 [place] .3.181178 Medica .8 [place] 2019-03-02 2019-03-02 Orders Doctor 1.2.840.1 [id number] Univers 00:00:00 00:00:00 Only Unassigned, 20897.1.1 ity of [place] 3.104.2.7 [place] .3.213640 Medica [address] 2019-03-01 2019-03-01 [facility] 1.2.840.2 [id number] Univers 16:15:00 23:59:00 Encounter Simi, Remote Device Check At Home - 1 4350.1.1 ity of 3.104.2.7 [place] .3.546325 Medica [address] 2019-02-26 2019-02-26 Nurse Jennifer Johns 1.2.840.7 [id number] Univers 08:31:56 08:51:56 Visit Nurse, [facility] Antico 81612.1.1 ity of 3.104.2.7 [place] .3.061114 Medica [address] [place] [address] 2019-02-26 2019-02-26 Patient Lupe, UTKUMAR 1.2.840.114 712 [id number] Univers 00:00:00 00:00:00 Secure Msg Cecilio Lowe 350.1.13.10 ity of [place] 4.2.7.2.686 Britta Manzo 127.6370270 Va dical nal 231 [facility] 2019-02-24 2019-02-24 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 Zhen Jones 1.2.840.1 [id number] Univers 15:59:52 16:14:52 Visit 1, [facility] 30876.1.1 i ty of 3.104.2.7 [place] .3.460458 Medica l .8 [place] 2019-02-24 2019-02-24 Office Jones, 1.2.840.1 [id number] Univers 14:53:13 15:46:51 Visit Zhen 93598.1.1 ity of 3.104.2.7 [place] .3.281185 Medica l .8 [place] 2019-02-24 2019-02-24 Telephone Sindy, 1.2.840.0 [id number] Univers 00:00:00 00:00:00 Wissam 06845.1.1 ity of [place] 3.104.2.7 [place] .3.076922 Medica l .8 [place] 2019-02-24 2019-02-24 Orders Doctor 1.2.840.5 [id number] Univers 00:00:00 00:00:00 Only Unassigned, 86084.1.1 ity of [place] 3.104.2.7 [place] .3.093488 Medica l .8 [place] 2019-02-23 2019-02-23 Office Lupe, 1.2.840.2 [id number] Univers 09:52:47 11:54:31 Visit Cecilio Payne 49331.1.1 ity of 3.104.2.7 [place] .3.832483 Medica l .8 [place] 2019-02-23 2019-02-23 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 Silvia Shaffer 1.2.840.8 [id number] Univers 09:45:19 10:00:19 Visit 2, [facility] 27881.1.1 i ty of 3.104.2.7 [place] .3.700619 Medica l .8 [place] 2019-02-23 2019-02-23 Refill Lupe 1.2.840.9 [id number] Univers 00:00:00 00:00:00 Cecilio Payne 48857.1.1 ity of 3.104.2.7 [place] .3.366799 Medica l .8 [place] 2019-02-23 2019-02-23 Orders Doctor 1.2.840.2 [id number] Univers 00:00:00 00:00:00 Only Unassigned, 58740.1.1 ity of [place] 3.104.2.7 [place] .3.518259 Medica l .8 [place] 2019-02-19 2019-02-19 Telephone Sindy, 1.2.840.2 [id number] Univers 00:00:00 00:00:00 Wissamomo 01893.1.1 ity of [place] 3.104.2.7 [place] .3.364448 Medica l .8 [place] 2019-02-14 2019-02-14 Telephone Alexxwu, 1.2.840.3 [id number] Univers 00:00:00 00:00:00 Sundar 50350.1.1 ity of 3.104.2.7 [place] .3.088879 Medica l .8 [place] 2019-02-13 2019-02-13 Emergency Navneet, 1.2.840.3 [id number] Univers 01:40:33 04:05:00 Amisha Hennessy 38221.1.1 ity of 3.104.2.7 [place] .3.937112 Medica l .8 [place] 2019-02-12 2019-02-12 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 Cecilio Andrade 1.2.840. 3 [id number] Univers 08:08:51 08:23:51 Visit 2, [facility] 68975.1.1 i ty of 3.104.2.7 [place] .3.072159 Medica l .8 [place] 2019-02-12 2019-02-12 Orders Doctor 1.2.840.4 [id number] Univers 00:00:00 00:00:00 Only Unassigned, 83988.1.1 ity of [place] 3.104.2.7 [place] .3.109177 Medica l .8 [place] 2019-02-09 2019-02-09 Office Sindy, 1.2.840.3 [id number] Univers 14:45:09 16:50:26 Visit Krystina 58201.1.1 ity of [place] 3.104.2.7 [place] .3.099089 Medica l .8 [facility] 2019-02-09 2019-02-09 Emergency Yariever, 1.2.840.0 [id number] Univers 09:33:09 11:11:00 Kurt Calderon 18500.1.1 ity of 3.104.2.7 [place] .3.570581 Medica l .8 [facility] 2019-02-09 2019-02-09 Telephone Sindy, 1.2.840.7 [id number] Univers 00:00:00 00:00:00 Wissam 41263.1.1 ity of [place] 3.104.2.7 [place] .3.276718 Medica l .8 [facility] 2019-02-08 2019-02-08 Telephone Scarlet, 1.2.840.7 [id number] Univers 00:00:00 00:00:00 Sundar 78855.1.1 ity of 3.104.2.7 [place] .3.647352 Medica l .8 [facility] 2019-02-06 2019-02-06 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 Cecilio Andrade 1.2.840. 7 [id number] Univers 08:41:37 08:56:37 Visit 1, [facility] 03828.1.1 i ty of 3.104.2.7 [place] .3.079693 Medica l .8 [facility] 2019-02-06 2019-02-06 Orders Doctor 1.2.840.7 [id number] Univers 00:00:00 00:00:00 Only Unassigned, 21890.1.1 ity of [place] 3.104.2.7 [place] .3.995369 Medica l .8 [facility] 2019-02-05 2019-02-05 Telephone Sindy, 1.2.840.7 [id number] Univers 00:00:00 00:00:00 Wissam 89231.1.1 ity of [place] 3.104.2.7 [place] .3.993695 Medica l .8 [facility] 2019-01-29 2019-01-29 Nurse Rebeca Cabrera 1.2.840.4 [id number] Univers 07:27:57 07:47:57 Visit Nurse, Christen Giselletodd 08473.1.1 ity of 3.104.2.7 [place] .3.226218 Medica l .8 [facility] 2019-01-26 2019-01-26 Office Lupe, 1.2.840.5 [id number] Univers 14:46:28 16:08:05 Visit Cecilio Payne 24270.1.1 ity of 3.104.2.7 [place] .3.416631 Medica l .8 Branch 2019-01-09 2019-01-09 [facility], 1.2.840.3 [id number] Univers 00:00:00 00:00:00 Wissam 12311.1.1 ity of [place] 3.104.2.7 [place] .3.807275 Medica l .8 [place] 2019-01-06 2019-01-06 [facility], 1.2.840.8 [id number] [id number] Univers 08:30:00 23:59:00 Encounter Wissam 16863.1.1 it y of [place] 3.104.2.7 [place] .3.064555 Medica l .8 [place] 2019-01-06 2019-01-06 [facility], 1.2.840.5 [id number] Univers 08:00:00 08:29:00 Encounter Wissam 39388.1.1 it y of [place] 3.104.2.7 [place] .3.298388 Medica l .8 [place] 2019-01-05 2019-01-05 [facility], 1.2.840.7 [id number] Univers 09:15:00 23:59:00 Encounter Wissam 11101.1.1 it y of [place] 3.104.2.7 [place] .3.370975 Medica l .8 [place] 2019-01-05 2019-01-05 [facility], 1.2.840.7 [id number] Univers 09:13:20 09:14:00 Encounter Benitomomo 32515.1.1 it y of [place] 3.104.2.7 [place] .3.228104 Medica l .8 [place] 2019-01-05 2019-01-05 Orders Doctor 1.2.840.5 [id number] Univers 00:00:00 00:00:00 Only Unassigned, 88328.1.1 ity of [place] 3.104.2.7 [place] .3.545967 Medica l .8 Branch 2019-01-03 2019-01-03 Refill Moe, 1.2.840.3 [id number] Univers 00:00:00 00:00:00 Ciara 27079.1.1 ity of [place] 3.104.2.7 [place] .3.387915 Medica l .8 [place] 2019-01-01 2019-01-01 Nurse Rebeca Cabrera 1.2.840.9 [id number] Univers 07:52:20 08:12:20 Visit Nurse, Christen Anticoag 30051.1.1 ity of 3.104.2.7 [place] .3.353033 Medica l .8 [place] 2018-12-24 2018-12-24 Orders Doctor 1.2.840.3 [id number] Univers 00:00:00 00:00:00 Only Unassigned, 98466.1.1 ity of [place] 3.104.2.7 [place] .3.588573 Medica l .8 [place] 2018-12-17 2018-12-17 Refill Bibiana, 1.2.840.2 [id number] Univers 00:00:00 00:00:00 Ioana 16824.1.1 it y of 3.104.2.7 [place] .3.537492 Medica l .8 Branch 2018-12-14 2018-12-14 Refill Lupe, 1.2.840.1 [id number] Univers 00:00:00 00:00:00 Cecilio Payne 76971.1.1 ity of 3.104.2.7 [place] .3.942440 Medica l .8 Branch 2018-12-11 2018-12-11 Refill Moe, 1.2.840.0 [id number] Univers 00:00:00 00:00:00 Ciara 45524.1.1 ity of [place] 3.104.2.7 [place] .3.209638 Medica l .8 Branch 2018-12-08 2018-12-08 Office Sindy, 1.2.840.2 [id number] Univers 13:06:42 17:08:49 Visit Krystina 82222.1.1 ity of [place] 3.104.2.7 [place] .3.661483 Medica l .8 Branch 2018-12-07 2018-12-07 Telephone Lupe, 1.2.840.9 [id number] Univers 00:00:00 00:00:00 Cecilio A 84272.1.1 ity of 3.104.2.7 [place] .3.828268 Medica l .8 Branch 2018-12-07 2018-12-07 Telephone Sindy, 1.2.840.6 [id number] Univers 00:00:00 00:00:00 Wissam 44353.1.1 ity of [place] 3.104.2.7 [place] .3.810405 Medica l .8 Branch 2018-12-07 2018-12-07 Telephone Lupe, 1.2.840.9 [id number] Univers 00:00:00 00:00:00 Cecilio A 09111.1.1 ity of 3.104.2.7 [place] .3.789268 Medica l .8 Branch 2018-12-05 2018-12-06 Emergency Damon, 1.2.840.5 [id number] Univers 22:42:42 00:57:00 Bryan A 33709.1.1 ity of 3.104.2.7 [place] .3.467071 Medica l .8 Branch 2018-12-04 2018-12-04 Emergency Damon, 1.2.840.2 [id number] Univers 19:33:38 20:29:00 Bryan A 34200.1.1 ity of 3.104.2.7 [place] .3.402758 Medica l .8 [place] 2018-12-04 2018-12-04 Nurse Rebeca Cabrera 1.2.840.6 [id number] Univers 07:44:12 07:59:12 Visit Nurse, Waenrike Antico 19321.1.1 ity of 3.104.2.7 [place] .3.632136 Medica l .8 [place] 2018-12-04 2018-12-04 Orders Doctor 1.2.840.7 [id number] Univers 00:00:00 00:00:00 Only Unassigned, 32437.1.1 ity of [place] 3.104.2.7 [place] .3.477989 Medica l .8 [place] 2018-12-03 2018-12-03 Refill Parish, 1.2.840.1 [id number] Univers 00:00:00 00:00:00 Al 92546.1.1 ity of 3.104.2.7 [place] .3.905059 Medica l .8 [place] 2018-12-03 2018-12-03 Telephone Andrade, 1.2.840.5 [id number] Univers 00:00:00 00:00:00 Cecilio Payne 13456.1.1 ity of 3.104.2.7 [place] .3.083087 Medica l .8 [place] 2018-12-03 2018-12-03 Telephone Andrade, 1.2.840.3 [id number] Univers 00:00:00 00:00:00 Cecilio A 68609.1.1 ity of 3.104.2.7 [place] .3.035805 Medica l .8 Branch 2018-12-01 2018-12-01 Telephone Andrade, 1.2.840.2 [id number] Univers 00:00:00 00:00:00 Cecilio A 53515.1.1 ity of 3.104.2.7 [place] .3.998347 Medica l .8 [place] 2018-11-27 2018-11-27 Telephone Andrade, 1.2.840.1 [id number] Univers 00:00:00 00:00:00 Cecilio A 92469.1.1 ity of 3.104.2.7 [place] .3.851598 Medica l .8 Branch 2018-11-26 2018-11-26 [facility] [place] 1.2.840.7 [id number] Univers 11:00:00 23:59:00 Encounter Outpt-Simi, Pacemaker/Icd 24328.1.1 ity of 3.104.2.7 [place] .3.795263 Medica l .8 Branch 2018-11-26 2018-11-26 Office Lupe, 1.2.840.0 [id number] Univers 15:45:25 17:12:20 Visit Cecilio Payne 20965.1.1 ity of 3.104.2.7 [place] .3.109947 Medica l .8 Branch 2018-11-26 2018-11-26 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 Krystina Adkins 1.2.840 .3 [id number] Univers 09:52:46 10:07:46 Visit 2, [facility] 89652.1.1 i ty of 3.104.2.7 [place] .3.158889 Medica l .8 Branch 2018-11-25 2018-11-25 Refill Andrade, 1.2.840.3 [id number] Univers 00:00:00 00:00:00 Cecilio Elmer 07260.1.1 ity of 3.104.2.7 [place] .3.814511 Medica l .8 [place] 2018-11-19 2018-11-19 Office Noman, 1.2.840.3 [id number] Univers 12:32:40 13:42:57 Visit Eddit 52487.1.1 ity of [place] 3.104.2.7 [place] .3.483640 Medica l .8 Branch 2018-11-19 2018-11-19 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 Krystina Adkins 1.2.840 .2 [id number] Univers 11:09:24 11:24:24 Visit 2, [facility] 44568.1.1 i ty of 3.104.2.7 [place] .3.234999 Medica l .8 Branch 2018-11-19 2018-11-19 Telephone Sindy, 1.2.840.9 [id number] Univers 00:00:00 00:00:00 Krystina 94139.1.1 ity of [place] 3.104.2.7 [place] .3.866020 Medica l .8 Branch 2018-11-19 2018-11-19 Orders Doctor 1.2.840.1 [id number] Univers 00:00:00 00:00:00 Only Unassigned, 37630.1.1 ity of [place] 3.104.2.7 [place] .3.815385 Medica l .8 [place] 2018-11-13 2018-11-13 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 Krystina Adkinsahim 1.2.840 .9 [id number] Univers 08:20:18 08:35:18 Visit 1, [facility] 28155.1.1 i ty of 3.104.2.7 [place] .3.252587 Medica l .8 Branch 2018-11-12 2018-11-12 Telephone Sindy, 1.2.840.2 [id number] Univers 00:00:00 00:00:00 Krystina 50590.1.1 ity of [place] 3.104.2.7 [place] .3.728889 Medica l .8 [place] 2018-11-12 2018-11-12 Telephone Lupe, 1.2.840.8 [id number] Univers 00:00:00 00:00:00 Cecilio Payne 44281.1.1 ity of 3.104.2.7 [place] .3.744532 Medica l .8 Branch 2018-11-07 2018-11-07 Emergency Wang, 1.2.840.1 [id number] Univers 03:32:00 06:14:00 Gaurav 93047.1.1 ity of 3.104.2.7 [place] .3.974856 Medica l .8 Branch 2018-11-06 2018-11-06 Nurse Rebeca Cabrera 1.2.840.6 [id number] Univers 07:40:28 07:55:28 Visit Nurse, Christen Brown 45563.1.1 ity of 3.104.2.7 [place] .3.149545 Medica l .8 [place] 2018-11-05 2018-11-05 Refill Fina, 1.2.840.6 [id number] Univers 00:00:00 00:00:00 Ernesto 30879.1.1 ity of 3.104.2.7 [place] .3.846940 Medica l .8 [place] 2018-11-05 2018-11-05 Refill Lupe, 1.2.840.0 [id number] Univers 00:00:00 00:00:00 Cecilio Payne 39790.1.1 ity of 3.104.2.7 [place] .3.408133 Medica l .8 [place] 2018-11-04 2018-11-04 Office Bibiana, 1.2.840.5 [id number] [facility] 11:29:33 11:59:33 Visit Ioana 95926.1.1 it y of 3.104.2.7 [place] .3.438147 Medica l .8 [place] 2018-11-04 2018-11-04 Telephone Lupe, 1.2.840.9 [id number] Univers 00:00:00 00:00:00 Cecilio Payne 74866.1.1 ity of 3.104.2.7 [place] .3.244362 Medica l .8 [place] 2018-10-30 2018-10-30 Telephone Ryder, 1.2.840.4 [id number] Univers 00:00:00 00:00:00 Jennifer 34206.1.1 ity of [place]i 3.104.2.7 [place] .3.234746 Medica l .8 [place] 2018-10-30 2018-10-30 Refill [place] 1.2.840.1 [id number] Univers 00:00:00 00:00:00 Al 85550.1.1 ity of 3.104.2.7 [place] .3.187997 Medica l .8 [place] 2018-10-28 2018-10-28 Office Atanasov, 1.2.840.7 [id number] Univers 09:20:51 09:39:35 Visit Max Goodson 39124.1.1 it y of 3.104.2.7 [place] .3.314882 Medica l .8 [place] 2018-10-27 2018-10-27 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 Cecilio Andrade 1.2.840. 9 [id number] Univers 09:03:54 09:18:54 Visit 2, [facility] 16596.1.1 i ty of 3.104.2.7 [place] .3.874657 Medica l .8 [place] 2018-10-27 2018-10-27 Office [place], 1.2.840.5 [id number] Univers 07:49:11 08:38:06 Visit Al 69025.1.1 ity of 3.104.2.7 [place] .3.616144 Medica l .8 [place] 2018-10-27 2018-10-27 Telephone Sindy, 1.2.840.4 [id number] Univers 00:00:00 00:00:00 Benitomomo 61033.1.1 ity of [place] 3.104.2.7 [place] .3.031621 Medica l .8 [place] 2018-10-26 2018-10-26 Telephone [place], 1.2.840.3 [id number] Univers 00:00:00 00:00:00 Wissam 23503.1.1 ity of [place] 3.104.2.7 [place] .3.546394 Medica l .8 [place] 2016-05-17 2016-05-18 Emergency [facility] [id number] Memoria 21:36:00 00:01:[address] [place] [address] 2016-05-17 2016-05-18 Emergency [facility] [id number] Memoria 21:36:00 00:01:00 to[address] [place] [address] 2016-05-17 2016-05-18 Emergency [facility] [id number] Memoria 21:36:00 00:01:00 r Freddy 05 [facility] 2016-05-17 2016-05-17 Outpatient GHADA ZuletaPL [facility] [id number] 15:36:00 18:01:00 Karey 05 Nancie Bingham 2016-05-17 2016-05-[address] [facility] [id number] 15:36:00 18:01:00 Karey 05 Nancie [place] 2016-05-05 2016-05-07 [facility] [id number] Memoria 22:51:00 00:35:00 r Freddy Rafaela [facility] 2016-05-05 2016-05-07 Inpatient [facility] [id number] Memoria 22:51:00 00:35:00 r Freddy Rafaela [facility] 2016-05-05 2016-05-07 Inpatient [facility] [id number] Memoria 22:51:00 00:35:00 r Freddy 04 [facility] 2016-05-05 2016-05-06 Outpatient Dhamotharan [facility] [id number] 16:51:00 18:35:00 , [place] 2016-05-05 2016-05-06 Outpatient Dhamotharan [facility] [id number] 16:51:00 18:35:00 , [place] 2016-04-25 2016-04-26 [facility] [id number] Memoria 23:01:00 02:08:00 toan Hayes 03 [facility] 2016-04-25 2016-04-26 Emergency [facility] [id number] Memoria 23:01:00 02:08:00 toan Hayes 03 [facility] 2016-04-25 2016-04-26 Emergency [facility] [id number] Memoria 23:01:00 02:08:00 toan Hayes 03 [facility] 2016-04-25 2016-04-26 Emergency [facility] [id number] Memoria 23:01:00 02:08:00 toan Hayes 03 [facility] 2016-04-25 2016-04-25 Outpatient Weathers, [facility]PL [facility] [id number] 18:01:00 21:08:00 Agustin Elam 2016-04-25 2016-04-25 Outpatient Weathers, [facility] [id number] 18:01:00 21:08:00 Agustin Elam 2016-03-05 2016-03-05 [facility] [id number] Memoria 11:59:00 14:36:00 r Freddy 02 [facility] 2016-03-05 2016-03-05 [facility] [id number] Memoria 11:59:00 14:36:00 r Freddy 02 [facility] 2016-03-05 2016-03-05 Emergency [facility] [id number] Memoria 11:59:00 14:36:00 r Fairview 02 [facility] 2016-03-05 2016-03-05 Emergency [facility] [id number] Memoria 11:59:00 14:36:00 r Freddy 02 [facility] 2016-03-05 2016-03-05 Outpatient Best, PL PL [id number] 06:59:00 09:36:00 Rachel Ca 2016-03-05 2016-03-05 Outpatient Best, PL PL [id number] 06:59:00 09:36:00 Rachel Ca 2016-03-02 2016-03-02 [facility] [id number] Memoria 10:00:00 14:17:00 r Freddy 01 [facility] 2016-03-02 2016-03-02 [facility] [id number] Memoria 10:00:00 14:17:00 r Freddy 01 [facility] 2016-03-02 2016-03-02 [facility] [id number] Memoria 10:00:00 14:17:00 r Freddy 01 [facility] 2016-03-02 2016-03-02 Emergency [facility] [id number] Memoria 10:00:00 14:17:00 r Freddy 01 [facility] 2016-03-02 2016-03-02 Outpatient Jaquan, PL PL [id number] 05:00:00 09:17:00 Fei Raulito 2016-03-02 2016-03-02 Outpatient Jaquan [facility] [id number] 05:00:00 09:17:00 Fei Cabezas 2016-02-17 2016-02-20 Inpatient [facility]Flavo [facility] [id number] Memoria 10:13:00 01:44:00 r Freddy 00 l [facility] 2016-02-17 2016-02-20 Inpatient [facility] [id number] Memoria 10:13:00 01:44:00 r Freddy 00 l [facility] 2016-02-17 2016-02-20 Inpatient [facility] [id number] Memoria 10:13:00 01:44:00 r Freddy 00 l [facility] 2016-02-17 2016-02-20 [facility] [id number] Memoria 10:13:00 01:44:00 r Freddy 00 [facility] 2016-02-17 2016-02-19 Outpatient Alejandra [facility] [id number] 05:13:00 20:44:00 Kiesha 00 [place] 2016-02-17 2016-02-19 Outpatient Alejandra [facility] [id number] 05:13:00 20:44:00 Kiesha 00 [place] Results Test Description Test Time Test Comments Results Result Comments Source D-DIMER 2022-11-13 22:52:54 Test Item Value Reference Range Interpretation Comme nts D-DIMER (test code = See_Comment [Autom ated message] The [id number]) system which ge nerated this result tra nsmitted reference range : <0.41 ?g/mL (FEU). Th e reference range was not used to interpr et this result as normal/abnormal . SUNIL (test code = SUNIL) This test may be used in conjunction with a clinical pretest [...] diagnosis. Lab Interpretation Normal (test code = 71224-5) [facility]-[id number] 22:52:54 Test Item Value Reference Interpretation Comments Range D-DIMER (test code = See_Comment [Autom ated [id number]) message] The system which generated this result transmitted reference range : <0.41 ?g/mL (FEU). The reference range was not [...] diagnosis. Lab Interpretation Normal (test code = 25099-2) [facility]-[id number] 22:52:54 Test Item Value Reference Interpretation Comments Range D-DIMER (test code = See_Comment [Autom ated [id number]) message] The system which generated this result transmitted reference range : <0.41 ?g/mL (FEU). The reference range was not [...] diagnosis. Lab Interpretation Normal (test code = 12556-8) [facility] [id number] 22:44:02 Test Item Value Reference Range Interpretation Comments TROPONIN I (test code = 0.022 ng/mL <=0.034 [id number]) SUNIL (test code = SUNIL) Reference (Normal) Range (defined by the 99th percentile reference [...] biotin. Lab Interpretation Normal (test code = 40478-1) [facility] [id number] 22:44:02 Test Item Value Reference Range Interpretation Comments TROPONIN I (test code = 0.022 ng/mL <=0.034 [id number]) SUNIL (test code = SUNIL) Reference (Normal) Range (defined by the 99th percentile reference [...] biotin. Lab Interpretation Normal (test code = 27187-3) [facility] [id number] 22:44:02 Test Item Value Reference Range Interpretation Comments TROPONIN I (test code = 0.022 ng/mL <=0.034 1210245190) SUNIL (test code = SUNIL) Reference (Normal) Range (defined by the 99th percentile reference [...] biotin. Lab Interpretation Normal (test code = 02183-8) [id number] 22:40:59 Test Item Value Reference Range Interpretation Comments NT-proBNP (test code = 154 pg/mL <=125 H Hemol yzed [id number]) specimen SUNIL (test code = SUNIL) Biotin has been reported to cause a negative bias, interpret results relative to patient's use of biotin. Lab Interpretation Abnormal (test code = 83369-7) [facility] [id number] 22:40:59 Test Item Value Reference Range Interpretation Comments NT-proBNP (test code = 154 pg/mL <=125 H Hemol yzed [id number]) specimen SUNIL (test code = SUNIL) Biotin has been reported to cause a negative bias, interpret results relative to patient's use of biotin. Lab Interpretation Abnormal (test code = 58069-9) [facility] [id number] 22:40:59 Test Item Value Reference Range Interpretation Comments NT-proBNP (test code = 154 pg/mL <=125 H Hemol yzed [id number]) specimen SUNIL (test code = SNUIL) Biotin has been reported to cause a negative bias, interpret results relative to patient's use of biotin. Lab Interpretation Abnormal (test code = 69749-6) [facility] WITH [id number] 22:09:36 Test Item Value Reference Range Interpretation Comments WBC (test code = 11.97 See_Comment H [Automated 0590-2) message] The sy stem which generated this result transmitted reference range : 4.20 - 10.70 10*3/?L. The reference range was not used to interpret this result as normal/abnormal . RBC (test code = 4.74 See_Comment [Automated 789-8) message] The sy stem which generated this result transmitted reference range : 4.26 - 5.52 10*6/?L. The reference range was not used to interpret this result as normal/abnormal . HGB (test code = 11.6 g/dL 12.2-16.4 L 718-7) HCT (test code = 35.6 % 38.4-49.3 L 4544-3) MCV (test code = 75.1 fL 81.7-95.6 L 787-2) MCH (test code = 24.5 pg 26.1-32.7 L 785-6) MCHC (test code = 32.6 g/dL 31.2-35.0 786-4) RDW-SD (test code = 45.9 fL 38.5-51.6 32056-6) RDW-CV (test code = 17.3 % 12.1-15.4 H 788-0) PLT (test code = 306 See_Comment [Automated 777-3) message] The sy stem which generated this result transmitted reference range : 150 - 328 10*3/ ?L. The reference r shashi was not used to interpret this result as normal/abnormal . MPV (test code = 9.5 fL 9.8-13.0 L 82663-6) NRBC/100 WBC (test 0.0 See_Comment [Automat ed code = [id number]) message] The system which generated this result transmitted reference range : 0.0 - 10.0 /100 WBCs. The refer ence range was not u sed to interpret th is result as normal/abnormal . NRBC x10^3 (test code See_Comment [Auto mated = [id number]) message] The s ystem which generated this result transmitted reference range : 10*3/?L. The reference range was not used to interpret this result as normal/abnormal . GRAN MAT (NEUT) % 77.1 % (test code = 770-8) IMM GRAN % (test code 0.40 % = [id number]) LYMPH % (test code = 15.0 % 736-9) MONO % (test code = 6.5 % 5905-5) EOS % (test code = 0.5 % 713-8) BASO % (test code = 0.5 % 706-2) GRAN MAT x10^3(ANC) 9.23 10*3/uL 1.99-6.95 H (test code = [id number]) IMM GRAN x10^3 (test 0.05 10*3/uL 0.00-0.06 code = [id number]) LYMPH x10^3 (test code 1.79 10*3/uL 1.09-3.23 = 731-0) MONO x10^3 (test code 0.78 10*3/uL 0.36-1.02 = 742-7) EOS x10^3 (test code = 0.06 10*3/uL 0.06-0.53 711-2) BASO x10^3 (test code 0.06 10*3/uL 0.01-0.09 = 704-7) Lab Interpretation Abnormal (test code = 66106-9) [facility] WITH [id number] 22:09:36 Test Item Value Reference Range Interpretation Comments WBC (test code = 11.97 See_Comment H [Automated 2590-2) message] The sy stem which generated this result transmitted reference range : 4.20 - 10.70 10*3/?L. The reference range was not used to interpret this result as normal/abnormal . RBC (test code = 4.74 See_Comment [Automated 279-8) message] The sy stem which generated this result transmitted reference range : 4.26 - 5.52 10*6/?L. The reference range was not used to interpret this result as normal/abnormal . HGB (test code = 11.6 g/dL 12.2-16.4 L 718-7) HCT (test code = 35.6 % 38.4-49.3 L 4544-3) MCV (test code = 75.1 fL 81.7-95.6 L 787-2) MCH (test code = 24.5 pg 26.1-32.7 L 785-6) MCHC (test code = 32.6 g/dL 31.2-35.0 786-4) RDW-SD (test code = 45.9 fL 38.5-51.6 13854-7) RDW-CV (test code = 17.3 % 12.1-15.4 H 788-0) PLT (test code = 306 See_Comment [Automated 777-3) message] The sy stem which generated this result transmitted reference range : 150 - 328 10*3/ ?L. The reference r shashi was not used to interpret this result as normal/abnormal . MPV (test code = 9.5 fL 9.8-13.0 L 66776-0) NRBC/100 WBC (test 0.0 See_Comment [Automat ed code = 6357551841) message] The system which generated this result transmitted reference range : 0.0 - 10.0 /100 WBCs. The refer ence range was not u sed to interpret th is result as normal/abnormal . NRBC x10^3 (test code See_Comment [Auto mated = 8965518528) message] The s ystem which generated this result transmitted reference range : 10*3/?L. The reference range was not used to interpret this result as normal/abnormal . GRAN MAT (NEUT) % 77.1 % (test code = 770-8) IMM GRAN % (test code 0.40 % = 3738684018) LYMPH % (test code = 15.0 % 736-9) MONO % (test code = 6.5 % 5905-5) EOS % (test code = 0.5 % 713-8) BASO % (test code = 0.5 % 706-2) GRAN MAT x10^3(ANC) 9.23 10*3/uL 1.99-6.95 H (test code = 6423137822) IMM GRAN x10^3 (test 0.05 10*3/uL 0.00-0.06 code = 2728412260) LYMPH x10^3 (test code 1.79 10*3/uL 1.09-3.23 = 731-0) MONO x10^3 (test code 0.78 10*3/uL 0.36-1.02 = 742-7) EOS x10^3 (test code = 0.06 10*3/uL 0.06-0.53 711-2) BASO x10^3 (test code 0.06 10*3/uL 0.01-0.09 = 704-7) Lab Interpretation Abnormal (test code = 05304-4) [facility] WITH [id number] 22:09:36 Test Item Value Reference Range Interpretation Comments WBC (test code = 11.97 See_Comment H [Automated 6690-2) message] The sy stem which generated this result transmitted reference range : 4.20 - 10.70 10*3/?L. The reference range was not used to interpret this result as normal/abnormal . RBC (test code = 4.74 See_Comment [Automated 789-8) message] The sy stem which generated this result transmitted reference range : 4.26 - 5.52 10*6/?L. The reference range was not used to interpret this result as normal/abnormal . HGB (test code = 11.6 g/dL 12.2-16.4 L 718-7) HCT (test code = 35.6 % 38.4-49.3 L 4544-3) MCV (test code = 75.1 fL 81.7-95.6 L 787-2) MCH (test code = 24.5 pg 26.1-32.7 L 785-6) MCHC (test code = 32.6 g/dL 31.2-35.0 786-4) RDW-SD (test code = 45.9 fL 38.5-51.6 14735-0) RDW-CV (test code = 17.3 % 12.1-15.4 H 788-0) PLT (test code = 306 See_Comment [Automated 777-3) message] The sy stem which generated this result transmitted reference range : 150 - 328 10*3/ ?L. The reference r shashi was not used to interpret this result as normal/abnormal . MPV (test code = 9.5 fL 9.8-13.0 L 10842-5) NRBC/100 WBC (test 0.0 See_Comment [Automat ed code = 8217368085) message] The system which generated this result transmitted reference range : 0.0 - 10.0 /100 WBCs. The refer ence range was not u sed to interpret th is result as normal/abnormal . NRBC x10^3 (test code See_Comment [Auto mated = 2550862926) message] The s ystem which generated this result transmitted reference range : 10*3/?L. The reference range was not used to interpret this result as normal/abnormal . GRAN MAT (NEUT) % 77.1 % (test code = 770-8) IMM GRAN % (test code 0.40 % = 5210492985) LYMPH % (test code = 15.0 % 736-9) MONO % (test code = 6.5 % 5905-5) EOS % (test code = 0.5 % 713-8) BASO % (test code = 0.5 % 706-2) GRAN MAT x10^3(ANC) 9.23 10*3/uL 1.99-6.95 H (test code = 2231105529) IMM GRAN x10^3 (test 0.05 10*3/uL 0.00-0.06 code = 9008909922) LYMPH x10^3 (test code 1.79 10*3/uL 1.09-3.23 = 731-0) MONO x10^3 (test code 0.78 10*3/uL 0.36-1.02 = 742-7) EOS x10^3 (test code = 0.06 10*3/uL 0.06-0.53 711-2) BASO x10^3 (test code 0.06 10*3/uL 0.01-0.09 = 704-7) Lab Interpretation Abnormal (test code = 63036-3) [facility] Test Item Value Reference Range Interpretation Comments Height (test code = 70 in 4412650162) Weight (test code = 284 lbs 3117755201) Systolic BP (test code = 113 mmHg 3116850029) Diastolic BP (test code 54 mmHg = 7435032797) Heart Rate (test code = 66 bpm 3072701733) Ao root diam (test code 3.50 cm = 8667800690) Aortic root (test code = 3.5 cm 7622783436) Ao root annulus (test 3.5 cm code = 2991751802) BSA (test code = 2.42 m2 7910913179) LVOT diameter (test code 2.22 cm = 6483315012) LVOT area (test code = 3.90 cm2 7097789249) LA size (test code = 4.2 cm 0118442686) ACS (test code = 2.80 cm 9521614430) LVIDD (test code = 6.10 cm 9140395995) Left Ventricular End 188.4 mL Diastolic Volume by Teichholz Method (test code = 6469120) IVS (test code = 1.36 cm 7203945804) Interventricular Septum 1.36 cm Diastolic Thickness by 2D (test code = 8889949) LVPWD (test code = 1.44 cm 5938469435) PW (test code = 1.44 cm 0.6-1.9 1419357261) EF(Teich) (test code = 40.30 % 7127117701) LVIDS (test code = 4.90 cm 7326124171) Left Ventricular End 112.5 mL Systolic Volume by Teichholz Method (test code = 2698072) FS (test code = 20 % 9998086062) EF - 2D (test code = 40.30 % 02443307) TR Peak Michelle (test code = 247.0 cm/s 1655089346) Triscuspid Valve 24.4 mmHg Regurgitation Peak Gradient (test code = 7144555123) PV PEAK VELOCITY (test 99.0 cm/s code = 1728111014) PV peak gradient (test 3.9 mmHg code = 5668510288) LAV(MOD-sp4) (test code 36.00 mL = 3310371347) MV E-F slope (test code 40.30 cm/s = 5985618354) MV Peak E Michelle (test code 89.1 cm/s = 5297730789) MV Peak A Michelle (test code 96.9 cm/s = 3353812223) E/A ratio (test code = 0.92 ratio 3501498214) MV valve area p 1/2 3.80 cm2 method (test code = 6115438754) MV dec slope (test code 449.30 cm/s2 = 0029942014) MV P1/2t max michelle (test 88.00 cm/s code = 6138253495) LVOT stroke volume (test 70.70 cm3 code = 6772440766) LVOT peak michelle (test code 93.8 cm/s = 9257717021) LVOT mn grad (test code 1.6 mmHg = 0340346477) AV LVOT peak gradient 3.5 mmHg (test code = 5744793771) LVOT peak VTI (test code 18.3 cm = 5182284878) LV V1 mean (test code = 58.50 cm/s 3222042138) Aortic valve mean 110.7 cm/s velocity (test code = 8770543927) Ao peak michelle (test code = 174.9 cm/s 0855678329) Ao VTI (test code = 37.0 cm 6834707485) AV area by cont VTI 1.9 cm2 (test code = 6005503231) AV area peak michelle (test 2.1 cm2 code = 0039371359) Ao max PG (test code = 12.20 mm[Hg] 0912687796) AV peak gradient (test 12.2 mmHg code = 0915129694) AV valve area (test code 1.91 cm2 = 0029438611) AV mean gradient (test 5.7 mmHg code = 3559735563) Radiology Study observation (narrative) (test code = 32426-6) SUNIL (test code = SUNIL) Table formatting from the original result was not included. ?Left?Ventricle: Left ventricle size is normal. Mildly increased wall thickness. Septal motion is consistent with pacing. . No regional wall motion abnormalities. Mild global hypokinesis present. Mildly reduced systolic function with a visually estimated EF of 45 - 50%. Indeterminate diastolic function. ?Tricuspid?Valve: Mild transvalvular regurgitation. Right ventricular systolic pressure is 25-30 mmHg. ?RA pressure is 5-10 mmHg. VitalsHeight Weight BSA (Calculated - sq m) BP Pulse 5' 10" (1.778 m) 271 lb (122.9 kg) 2.46 sq meters 116/66 86 Left VentricleLeft ventricle size is normal. Mildly increased wall thickness. Septal motion is consistent with pacing. . No regional wall motion abnormalities. Mild global hypokinesis present. Mildly reduced systolic function with a visually estimated EF of 45 - 50%. Indeterminate diastolic function.Right VentricleRight ventricle is normal in size and function. Normal wall thickness. There is a pacemaker lead in the right ventricle.Left AtriumLeft atrium size is normal.Right AtriumRight atrium size is normal. Lead present in the right atrium.IVC/SVCRA pressure is 5-10 mmHg.Mitral ValveMitral valve is grossly normal in structure and function. Trace transvalvular regurgitation.Tricusp id ValveTricuspid valve is normal size and function. Mild transvalvular regurgitation. Right ventricular systolic pressure is 25-30 mmHg. RA pressure is 5-10 mmHg.Aortic ValveAortic valve opens well. Trace transvalvular regurgitation.Pulmoni c ValvePulmonic valve is grossly normal in structure and function. Trace transvalvular regurgitation.Ascendi ng AortaNormal sized aortic root.PericardiumNo pericardial effusion.Study DetailsStudy quality experienced technical difficulty. A complete echocardiogram was performed using 2D, color flow Doppler and spectral Doppler. 5 mL of Lumason ultrasound enhancing agent used. [facility] GLUCOSE (AUTOMATED)2022-10-27 16:29:09 Test Item Value Reference Range Interpretation Comments POCT GLU (test code = 2933401687) 133 mg/dL 70-110 H Lab Interpretation (test code = Abnormal 83678-0) [facility] GLUCOSE (AUTOMATED)2022-10-27 16:29:09 Test Item Value Reference Range Interpretation Comments POCT GLU (test code = 9934520932) 133 mg/dL 70-110 H Lab Interpretation (test code = Abnormal 92713-4) [facility] GLUCOSE (AUTOMATED)2022-10-27 16:29:09 Test Item Value Reference Range Interpretation Comments POCT GLU (test code = 4989522887) 133 mg/dL 70-110 H Lab Interpretation (test code = Abnormal 58385-3) [facility] GLUCOSE (AUTOMATED)2022-10-27 16:29:09 Test Item Value Reference Range Interpretation Comments POCT GLU (test code = 2887309697) 133 mg/dL 70-110 H Lab Interpretation (test code = Abnormal 06857-7) [facility] GLUCOSE (AUTOMATED)2022-10-27 16:29:09 Test Item Value Reference Range Interpretation Comments POCT GLU (test code = 9685922590) 133 mg/dL 70-110 H Lab Interpretation (test code = Abnormal 62968-5) [facility] GLUCOSE (AUTOMATED)2022-10-27 16:29:09 Test Item Value Reference Range Interpretation Comments POCT GLU (test code = 6597514938) 133 mg/dL 70-110 H Lab Interpretation (test code = Abnormal 90366-0) [facility] GLUCOSE (AUTOMATED)2022-10-27 16:29:09 Test Item Value Reference Range Interpretation Comments POCT GLU (test code = 1753833819) 133 mg/dL 70-110 H Lab Interpretation (test code = Abnormal 56965-0) [facility] GLUCOSE (AUTOMATED)2022-10-27 13:16:37 Test Item Value Reference Range Interpretation Comments POCT GLU (test code = 5693635118) 131 mg/dL 70-110 H Lab Interpretation (test code = Abnormal 06435-4) [facility]2023-05-06 21:03:51 Test Item Value Reference Range Interpretation Comments MAGNESIUM (test code = 8870360377) 2.3 mg/dL 1.7-2.4 Lab Interpretation (test code = Normal 09609-9) [facility]2023-05-06 21:03:51 Test Item Value Reference Range Interpretation Comments MAGNESIUM (test code = 7742930383) 2.3 mg/dL 1.7-2.4 Lab Interpretation (test code = Normal 69530-2) [facility]2023-05-06 21:03:51 Test Item Value Reference Range Interpretation Comments MAGNESIUM (test code = 4724628635) 2.3 mg/dL 1.7-2.4 Lab Interpretation (test code = Normal 95396-5) [facility]2023-05-06 21:03:51 Test Item Value Reference Range Interpretation Comments MAGNESIUM (test code = 3426380164) 2.3 mg/dL 1.7-2.4 Lab Interpretation (test code = Normal 42653-3) [facility]2023-05-06 21:03:51 Test Item Value Reference Range Interpretation Comments MAGNESIUM (test code = 1590687260) 2.3 mg/dL 1.7-2.4 Lab Interpretation (test code = Normal 92803-0) [facility]2023-05-06 21:03:51 Test Item Value Reference Range Interpretation Comments MAGNESIUM (test code = 3826378258) 2.3 mg/dL 1.7-2.4 Lab Interpretation (test code = Normal 71231-8) [facility]51 Test Item Value Reference Range Interpretation Comments MAGNESIUM (test code = 3069655956) 2.3 mg/dL 1.7-2.4 Lab Interpretation (test code = Normal 50355-7) [facility] [id number] 20:35:11 Test Item Value Reference Range Interpretation Comments APTT Patient (test 41 See_Comment H [Automat ed code = 3173-2) message] The system which generated this result transmitted reference range : 23 - 38 Seconds . The reference range was not used to interpr et this result as normal/abnormal . SUNIL (test code = SUNIL) The [facility] patient population mean normal value for aPTT is 30 seconds. Lab Interpretation Abnormal (test code = 50281-0) [facility] / [id number] 20:33:11 Test Item Value Reference Range Interpretation Comments PROTIME PATIENT (test 16.8 See_Comment H [Auto mated message] code = 5964-2) The system wh ich generated this result transmitted ref erence range: 12.0 - 1 4.7 Seconds. The reference range was not used to int erpret this result as normal/abnormal . INR (test code = 6301-6) 1.4 Nor mal INR <1.1; Warfarin Therap eutic range 2.0 to 3. 0 or 2.5 to 3.5, dep ending upon the indica tions. Lab Interpretation (test Abnormal code = 00299-6) [facility] [id number] 20:30:14 Test Item Value Reference Range Interpretation Comments TROPONIN I (test code = 0.005 ng/mL <=0.034 7570823693) SUNIL (test code = SUNIL) Reference (Normal) Range (defined by the 99th percentile reference [...] biotin. Lab Interpretation Normal (test code = 43479-4) [facility] [id number] 20:27:13 Test Item Value Reference Range Interpretation Comments NT-proBNP (test code = 99 pg/mL <=125 3386137706) SUNIL (test code = SUNIL) Biotin has been reported to cause a negative bias, interpret results relative to patient's use of biotin. Lab Interpretation (test Normal code = 06077-5) [facility]OL[facility] (67375)2022-10-26 20:18:34 Test Item Value Reference Range Interpretation Comments NA (test code = 136 mmol/L 135-145 0877006402) K (test code = 3.8 mmol/L 3.5-5.0 4524084685) CL (test code = 99 mmol/L 98-108 2665722078) CO2 TOTAL (test code = 28 mmol/L 23-31 6808623699) AGAP (test code = 9 2-16 9594017417) BUN (test code = 20 mg/dL 7-23 7796083348) GLUCOSE (test code = 167 mg/dL 70-110 H 1300086123) CREATININE (test code = 1.49 mg/dL 0.60-1.25 H 2076424862) TOTAL BILI (test code = 0.6 mg/dL 0.1-1.7 9824373680) CALCIUM (test code = 9.5 mg/dL 8.6-10.6 1745242695) T PROTEIN (test code = 6.9 g/dL 6.3-8.2 7303107415) ALBUMIN (test code = 3.7 g/dL 3.5-5.0 1287914584) ALK PHOS (test code = 131 U/L 34-122 H 6069175132) ALTv (test code = 31 U/L 5-50 1742-6) AST(SGOT) (test code = 28 U/L 13-40 4130159074) eGFR (test code = 49.3 mL/min/1.73m2 3072836970) SUNIL (test code = SUNIL) Association of [...] tests). Lab Interpretation Abnormal (test code = 19190-2) [facility] WITH [id number] 20:06:11 Test Item Value Reference Range Interpretation Comments WBC (test code = 11.16 See_Comment H [Automated 1289-2) message] The sy stem which generated this result transmitted reference range : 4.20 - 10.70 10*3/?L. The reference range was not used to interpret this result as normal/abnormal . RBC (test code = 4.45 See_Comment [Automated 687-3) message] The sy stem which generated this result transmitted reference range : 4.26 - 5.52 10*6/?L. The reference range was not used to interpret this result as normal/abnormal . HGB (test code = 10.8 g/dL 12.2-16.4 L 718-7) HCT (test code = 34.5 % 38.4-49.3 L 4544-3) MCV (test code = 77.5 fL 81.7-95.6 L 787-2) MCH (test code = 24.3 pg 26.1-32.7 L 785-6) MCHC (test code = 31.3 g/dL 31.2-35.0 786-4) RDW-SD (test code = 47.9 fL 38.5-51.6 62546-0) RDW-CV (test code = 17.3 % 12.1-15.4 H 788-0) PLT (test code = 307 See_Comment [Automated 777-3) message] The sy stem which generated this result transmitted reference range : 150 - 328 10*3/ ?L. The reference r shashi was not used to interpret this result as normal/abnormal . MPV (test code = 9.1 fL 9.8-13.0 L 63622-1) NRBC/100 WBC (test 0.0 See_Comment [Automat ed code = 8576643015) message] The system which generated this result transmitted reference range : 0.0 - 10.0 /100 WBCs. The refer ence range was not u sed to interpret th is result as normal/abnormal . NRBC x10^3 (test code See_Comment [Auto mated = 6658848028) message] The s ystem which generated this result transmitted reference range : 10*3/?L. The reference range was not used to interpret this result as normal/abnormal . GRAN MAT (NEUT) % 77.9 % (test code = 770-8) IMM GRAN % (test code 0.60 % = 0747807101) LYMPH % (test code = 14.1 % 736-9) MONO % (test code = 6.4 % 5905-5) EOS % (test code = 0.6 % 713-8) BASO % (test code = 0.4 % 706-2) GRAN MAT x10^3(ANC) 8.70 10*3/uL 1.99-6.95 H (test code = 2954567705) IMM GRAN x10^3 (test 0.07 10*3/uL 0.00-0.06 H code = 9549035146) LYMPH x10^3 (test code 1.57 10*3/uL 1.09-3.23 = 731-0) MONO x10^3 (test code 0.71 10*3/uL 0.36-1.02 = 742-7) EOS x10^3 (test code = 0.07 10*3/uL 0.06-0.53 711-2) BASO x10^3 (test code 0.04 10*3/uL 0.01-0.09 = 704-7) Lab Interpretation Abnormal (test code = 77663-4) [address]2023-02-25 14:00:00 Test Item Value Reference Range Interpretation Comments External HGB A1C (test code = 4548-4) 5.9 4.0-6.[address]2023-02-25 14:00:00 Test Item Value Reference Range Interpretation Comments External HGB A1C (test code = 4548-4) 5.9 4.0-6.[address]2023-02-25 14:00:00 Test Item Value Reference Range Interpretation Comments External HGB A1C (test code = 4548-4) 5.9 4.0-6.0 [facility] [id number] 14:00:00 Test Item Value Reference Range Interpretation Comments External HGB A1C (test code = 4548-4) 5.9 4.0-6.0 [facility] [id number] 14:00:00 Test Item Value Reference Range Interpretation Comments External HGB A1C (test code = 4548-4) 5.9 4.0-6.0 [facility] [id number] 14:00:00 Test Item Value Reference Range Interpretation Comments External HGB A1C (test code = 4548-4) 5.9 4.0-6.0 [facility] [id number] 14:00:00 Test Item Value Reference Range Interpretation Comments External HGB A1C (test code = 4548-4) 5.9 4.0-6.0 [facility] [id number] 14:00:00 Test Item Value Reference Range Interpretation Comments External HGB A1C (test code = 4548-4) 5.9 4.0-6.0 [facility] [id number] 14:00:00 Test Item Value Reference Range Interpretation Comments External HGB A1C (test code = 4548-4) 5.9 4.0-6.0 [facility] [id number] 14:00:00 Test Item Value Reference Range Interpretation Comments External HGB A1C (test code = 4548-4) 5.9 4.0-6.0 [facility] [id number] 14:00:00 Test Item Value Reference Range Interpretation Comments External HGB A1C (test code = 4548-4) 5.9 4.0-6.0 [facility] [id number] 14:00:00 Test Item Value Reference Range Interpretation Comments External HGB A1C (test code = 4548-4) 5.9 4.0-6.0 [facility] [id number] 14:00:00 Test Item Value Reference Range Interpretation Comments External HGB A1C (test code = 4548-4) 5.9 4.0-6.0 [facility] [id number] 14:00:00 Test Item Value Reference Range Interpretation Comments External HGB A1C (test code = 4548-4) 5.9 4.0-6.0 [facility] [id number] 14:00:00 Test Item Value Reference Range Interpretation Comments External HGB A1C (test code = 4548-4) 5.9 4.0-6.0 [facility] [id number] 14:00:00 Test Item Value Reference Range Interpretation Comments External HGB A1C (test code = 4548-4) 5.9 4.0-6.0 [facility] [id number] 01:08:02 Test Item Value Reference Range Interpretation Comments NT-proBNP (test code = 69 pg/mL <=125 1640846751) SUNIL (test code = SUNIL) Biotin has been reported to cause a negative bias, interpret results relative to patient's use of biotin. Lab Interpretation (test Normal code = 34289-5) [facility] [id number] 01:08:02 Test Item Value Reference Range Interpretation Comments NT-proBNP (test code = 69 pg/mL <=125 7241998011) SUNIL (test code = SUNIL) Biotin has been reported to cause a negative bias, interpret results relative to patient's use of biotin. Lab Interpretation (test Normal code = 39235-4) [facility] [id number] 01:08:02 Test Item Value Reference Range Interpretation Comments NT-proBNP (test code = 69 pg/mL <=125 7696561097) SUNIL (test code = SUNIL) Biotin has been reported to cause a negative bias, interpret results relative to patient's use of biotin. Lab Interpretation (test Normal code = 92358-3) [facility] [id number] 01:08:02 Test Item Value Reference Range Interpretation Comments NT-proBNP (test code = 69 pg/mL <=125 1544326261) SUNIL (test code = SUNIL) Biotin has been reported to cause a negative bias, interpret results relative to patient's use of biotin. Lab Interpretation (test Normal code = 35397-3) [facility] [id number] 01:08:02 Test Item Value Reference Range Interpretation Comments NT-proBNP (test code = 69 pg/mL <=125 7732508997) SUNIL (test code = SUNIL) Biotin has been reported to cause a negative bias, interpret results relative to patient's use of biotin. Lab Interpretation (test Normal code = 13017-3) [facility] [id number] 01:08:02 Test Item Value Reference Range Interpretation Comments NT-proBNP (test code = 69 pg/mL <=125 2234138314) SUNIL (test code = SUNIL) Biotin has been reported to cause a negative bias, interpret results relative to patient's use of biotin. Lab Interpretation (test Normal code = 04783-9) [facility] [id number] 01:08:02 Test Item Value Reference Range Interpretation Comments NT-proBNP (test code = 69 pg/mL <=125 4740262691) SUNIL (test code = SUNIL) Biotin has been reported to cause a negative bias, interpret results relative to patient's use of biotin. Lab Interpretation (test Normal code = 12350-5) [facility] [id number] 01:08:02 Test Item Value Reference Range Interpretation Comments NT-proBNP (test code = 69 pg/mL <=125 6609035716) SUNIL (test code = SUNIL) Biotin has been reported to cause a negative bias, interpret results relative to patient's use of biotin. Lab Interpretation (test Normal code = 01761-5) [facility] [id number] 01:08:02 Test Item Value Reference Range Interpretation Comments NT-proBNP (test code = 69 pg/mL <=125 8236132050) SUNIL (test code = SUNIL) Biotin has been reported to cause a negative bias, interpret results relative to patient's use of biotin. Lab Interpretation (test Normal code = 60682-1) [facility] [id number] 01:08:02 Test Item Value Reference Range Interpretation Comments NT-proBNP (test code = 69 pg/mL <=125 7742113316) SUNIL (test code = SUNIL) Biotin has been reported to cause a negative bias, interpret results relative to patient's use of biotin. Lab Interpretation (test Normal code = 78141-0) [facility] [id number] 01:08:02 Test Item Value Reference Range Interpretation Comments NT-proBNP (test code = 69 pg/mL <=125 0677061102) SUNIL (test code = SUNIL) Biotin has been reported to cause a negative bias, interpret results relative to patient's use of biotin. Lab Interpretation (test Normal code = 83565-6) [facility] [id number] 01:08:02 Test Item Value Reference Range Interpretation Comments NT-proBNP (test code = 69 pg/mL <=125 5400677129) SUNIL (test code = SUNIL) Biotin has been reported to cause a negative bias, interpret results relative to patient's use of biotin. Lab Interpretation (test Normal code = 14903-5) [facility] [id number] 01:08:02 Test Item Value Reference Range Interpretation Comments NT-proBNP (test code = 69 pg/mL <=125 3700836712) SUNIL (test code = SUNIL) Biotin has been reported to cause a negative bias, interpret results relative to patient's use of biotin. Lab Interpretation (test Normal code = 13377-9) [facility] [id number] 01:08:02 Test Item Value Reference Range Interpretation Comments NT-proBNP (test code = 69 pg/mL <=125 2323156828) SUNIL (test code = SUNIL) Biotin has been reported to cause a negative bias, interpret results relative to patient's use of biotin. Lab Interpretation (test Normal code = 89124-5) [facility] [id number] 01:08:02 Test Item Value Reference Range Interpretation Comments NT-proBNP (test code = 69 pg/mL <=125 [id number]) SUNIL (test code = SUNIL) Biotin has been reported to cause a negative bias, interpret results relative to patient's use of biotin. Lab Interpretation (test Normal code = 59943-1) [facility] [id number] 01:08:02 Test Item Value Reference Range Interpretation Comments NT-proBNP (test code = 69 pg/mL <=125 0060630271) SUNIL (test code = SUNIL) Biotin has been reported to cause a negative bias, interpret results relative to patient's use of biotin. Lab Interpretation (test Normal code = 62747-1) [facility] [id number] 01:08:02 Test Item Value Reference Range Interpretation Comments NT-proBNP (test code = 69 pg/mL <=125 9377342030) SUNIL (test code = SUNIL) Biotin has been reported to cause a negative bias, interpret results relative to patient's use of biotin. Lab Interpretation (test Normal code = 33398-4) [facility] [id number] 01:08:02 Test Item Value Reference Range Interpretation Comments NT-proBNP (test code = 69 pg/mL <=125 1935045378) SUNIL (test code = SUNIL) Biotin has been reported to cause a negative bias, interpret results relative to patient's use of biotin. Lab Interpretation (test Normal code = 40792-9) [facility] [id number] 01:08:02 Test Item Value Reference Range Interpretation Comments NT-proBNP (test code = 69 pg/mL <=125 9603969653) SUNIL (test code = USNIL) Biotin has been reported to cause a negative bias, interpret results relative to patient's use of biotin. Lab Interpretation (test Normal code = 86017-4) [facility] Metabolic Panel (NA, K, CL, CO2, GLUCOSE, BUN, CREATININE, CA)2022-07-31 01:06:41 Test Item Value Reference Range Interpretation Comments NA (test code = 137 mmol/L 135-145 4689831827) K (test code = 4.2 mmol/L 3.5-5.0 3992456477) CL (test code = 101 mmol/L 98-108 9511013002) CO2 TOTAL (test code = 24 mmol/L 23-31 1797223394) AGAP (test code = 12 2-16 6106852962) BUN (test code = 19 mg/dL 7-23 8414687764) GLUCOSE (test code = 154 mg/dL 70-110 H 5383171871) CREATININE (test code = 1.60 mg/dL 0.60-1.25 H 7019735017) CALCIUM (test code = 9.4 mg/dL 8.6-10.6 1455188321) eGFR (test code = 45.4 mL/min/1.73m2 7165609243) SUNIL (test code = SUNIL) Association of [...] tests). Lab Interpretation Abnormal (test code = 33207-6) [facility] Metabolic Panel (NA, K, CL, CO2, GLUCOSE, BUN, CREATININE, CA)2022-07-31 01:06:41 Test Item Value Reference Range Interpretation Comments NA (test code = 137 mmol/L 135-145 2893863916) K (test code = 4.2 mmol/L 3.5-5.0 8791358079) CL (test code = 101 mmol/L 98-108 1792786268) CO2 TOTAL (test code = 24 mmol/L 23-31 9791860503) AGAP (test code = 12 2-16 4172937005) BUN (test code = 19 mg/dL 7-23 1349197558) GLUCOSE (test code = 154 mg/dL 70-110 H 6859837360) CREATININE (test code = 1.60 mg/dL 0.60-1.25 H 6492761275) CALCIUM (test code = 9.4 mg/dL 8.6-10.6 4540045539) eGFR (test code = 45.4 mL/min/1.73m2 1537970287) SUNIL (test code = SUNIL) Association of [...] tests). Lab Interpretation Abnormal (test code = 17519-3) [facility] Metabolic Panel (NA, K, CL, CO2, GLUCOSE, BUN, CREATININE, CA)2022-07-31 01:06:41 Test Item Value Reference Range Interpretation Comments NA (test code = 137 mmol/L 135-145 0525660168) K (test code = 4.2 mmol/L 3.5-5.0 0012930126) CL (test code = 101 mmol/L 98-108 1398197751) CO2 TOTAL (test code = 24 mmol/L 23-31 4322773400) AGAP (test code = 12 2-16 4522298049) BUN (test code = 19 mg/dL 7-23 1499067850) GLUCOSE (test code = 154 mg/dL 70-110 H 0253361981) CREATININE (test code = 1.60 mg/dL 0.60-1.25 H 2857332775) CALCIUM (test code = 9.4 mg/dL 8.6-10.6 9418568283) eGFR (test code = 45.4 mL/min/1.73m2 1434326367) SUNIL (test code = SUNIL) Association of [...] tests). Lab Interpretation Abnormal (test code = 78278-8) [facility] Metabolic Panel (NA, K, CL, CO2, GLUCOSE, BUN, CREATININE, CA)2022-07-31 01:06:41 Test Item Value Reference Range Interpretation Comments NA (test code = 137 mmol/L 135-145 6529259283) K (test code = 4.2 mmol/L 3.5-5.0 3701337625) CL (test code = 101 mmol/L 98-108 1759218195) CO2 TOTAL (test code = 24 mmol/L 23-31 2726068094) AGAP (test code = 12 2-16 3226762957) BUN (test code = 19 mg/dL 7-23 9616227684) GLUCOSE (test code = 154 mg/dL 70-110 H 3781991614) CREATININE (test code = 1.60 mg/dL 0.60-1.25 H 6451789781) CALCIUM (test code = 9.4 mg/dL 8.6-10.6 8814905594) eGFR (test code = 45.4 mL/min/1.73m2 8748848553) SUNIL (test code = SUNIL) Association of [...] tests). Lab Interpretation Abnormal (test code = 64042-8) [facility] Metabolic Panel (NA, K, CL, CO2, GLUCOSE, BUN, CREATININE, CA)2022-07-31 01:06:41 Test Item Value Reference Range Interpretation Comments NA (test code = 137 mmol/L 135-145 0621450939) K (test code = 4.2 mmol/L 3.5-5.0 4544042135) CL (test code = 101 mmol/L 98-108 7639537192) CO2 TOTAL (test code = 24 mmol/L 23-31 9991536028) AGAP (test code = 12 2-16 0092387293) BUN (test code = 19 mg/dL 7-23 1709613732) GLUCOSE (test code = 154 mg/dL 70-110 H 0205490672) CREATININE (test code = 1.60 mg/dL 0.60-1.25 H 5276376853) CALCIUM (test code = 9.4 mg/dL 8.6-10.6 8833833834) eGFR (test code = 45.4 mL/min/1.73m2 0563482769) SUNIL (test code = SUNIL) Association of [...] tests). Lab Interpretation Abnormal (test code = 93315-0) [facility] Metabolic Panel (NA, K, CL, CO2, GLUCOSE, BUN, CREATININE, CA)2022-07-31 01:06:41 Test Item Value Reference Range Interpretation Comments NA (test code = 137 mmol/L 135-145 7758338673) K (test code = 4.2 mmol/L 3.5-5.0 9608932792) CL (test code = 101 mmol/L 98-108 9469084097) CO2 TOTAL (test code = 24 mmol/L 23-31 5388396364) AGAP (test code = 12 2-16 4070044428) BUN (test code = 19 mg/dL 7-23 7648216431) GLUCOSE (test code = 154 mg/dL 70-110 H 3347844667) CREATININE (test code = 1.60 mg/dL 0.60-1.25 H 8344502446) CALCIUM (test code = 9.4 mg/dL 8.6-10.6 1963264324) eGFR (test code = 45.4 mL/min/1.73m2 1524104568) SUNIL (test code = SUNIL) Association of [...] tests). Lab Interpretation Abnormal (test code = 13405-0) [facility] Metabolic Panel (NA, K, CL, CO2, GLUCOSE, BUN, CREATININE, CA)2022-07-31 01:06:41 Test Item Value Reference Range Interpretation Comments NA (test code = 137 mmol/L 135-145 1140964626) K (test code = 4.2 mmol/L 3.5-5.0 7375119968) CL (test code = 101 mmol/L 98-108 5303517802) CO2 TOTAL (test code = 24 mmol/L 23-31 0744427767) AGAP (test code = 12 2-16 4712398040) BUN (test code = 19 mg/dL 7-23 9254361309) GLUCOSE (test code = 154 mg/dL 70-110 H 2607860544) CREATININE (test code = 1.60 mg/dL 0.60-1.25 H 4925202867) CALCIUM (test code = 9.4 mg/dL 8.6-10.6 1792233714) eGFR (test code = 45.4 mL/min/1.73m2 8742261820) SUNIL (test code = SUNIL) Association of [...] tests). Lab Interpretation Abnormal (test code = 07364-6) [facility] Metabolic Panel (NA, K, CL, CO2, GLUCOSE, BUN, CREATININE, CA)2022-07-31 01:06:41 Test Item Value Reference Range Interpretation Comments NA (test code = 137 mmol/L 135-145 6057727928) K (test code = 4.2 mmol/L 3.5-5.0 1746596482) CL (test code = 101 mmol/L 98-108 4851216088) CO2 TOTAL (test code = 24 mmol/L 23-31 6575462643) AGAP (test code = 12 2-16 1453054510) BUN (test code = 19 mg/dL 7-23 4159704612) GLUCOSE (test code = 154 mg/dL 70-110 H 7200184630) CREATININE (test code = 1.60 mg/dL 0.60-1.25 H 5386493475) CALCIUM (test code = 9.4 mg/dL 8.6-10.6 3790409781) eGFR (test code = 45.4 mL/min/1.73m2 9950691127) SUNIL (test code = SUNIL) Association of [...] tests). Lab Interpretation Abnormal (test code = 17287-5) [facility] Metabolic Panel (NA, K, CL, CO2, GLUCOSE, BUN, CREATININE, CA)2022-07-31 01:06:41 Test Item Value Reference Range Interpretation Comments NA (test code = 137 mmol/L 135-145 1875778707) K (test code = 4.2 mmol/L 3.5-5.0 3868406758) CL (test code = 101 mmol/L 98-108 6017169789) CO2 TOTAL (test code = 24 mmol/L 23-31 9825999240) AGAP (test code = 12 2-16 6953935249) BUN (test code = 19 mg/dL 7-23 0317010938) GLUCOSE (test code = 154 mg/dL 70-110 H 9203504629) CREATININE (test code = 1.60 mg/dL 0.60-1.25 H 9017108382) CALCIUM (test code = 9.4 mg/dL 8.6-10.6 1879258552) eGFR (test code = 45.4 mL/min/1.73m2 3018138244) SUNIL (test code = SUNIL) Association of [...] tests). Lab Interpretation Abnormal (test code = 30142-0) [facility] Metabolic Panel (NA, K, CL, CO2, GLUCOSE, BUN, CREATININE, CA)2022-07-31 01:06:41 Test Item Value Reference Range Interpretation Comments NA (test code = 137 mmol/L 135-145 6843822966) K (test code = 4.2 mmol/L 3.5-5.0 4181645473) CL (test code = 101 mmol/L 98-108 6811598541) CO2 TOTAL (test code = 24 mmol/L 23-31 5386634420) AGAP (test code = 12 2-16 8266409672) BUN (test code = 19 mg/dL 7-23 6482371663) GLUCOSE (test code = 154 mg/dL 70-110 H 8092579177) CREATININE (test code = 1.60 mg/dL 0.60-1.25 H 7970231933) CALCIUM (test code = 9.4 mg/dL 8.6-10.6 3670311494) eGFR (test code = 45.4 mL/min/1.73m2 8980463028) SUNIL (test code = SUNIL) Association of [...] tests). Lab Interpretation Abnormal (test code = 22373-4) [facility] Metabolic Panel (NA, K, CL, CO2, GLUCOSE, BUN, CREATININE, CA)2022-07-31 01:06:41 Test Item Value Reference Range Interpretation Comments NA (test code = 137 mmol/L 135-145 8953239883) K (test code = 4.2 mmol/L 3.5-5.0 0598360216) CL (test code = 101 mmol/L 98-108 3690796378) CO2 TOTAL (test code = 24 mmol/L 23-31 1213360688) AGAP (test code = 12 2-16 2734848494) BUN (test code = 19 mg/dL 7-23 2617124242) GLUCOSE (test code = 154 mg/dL 70-110 H 3150773946) CREATININE (test code = 1.60 mg/dL 0.60-1.25 H 2637413323) CALCIUM (test code = 9.4 mg/dL 8.6-10.6 2728931255) eGFR (test code = 45.4 mL/min/1.73m2 3555275354) SUNIL (test code = SUNIL) Association of [...] tests). Lab Interpretation Abnormal (test code = 35765-9) [facility] Metabolic Panel (NA, K, CL, CO2, GLUCOSE, BUN, CREATININE, CA)2022-07-31 01:06:41 Test Item Value Reference Range Interpretation Comments NA (test code = 137 mmol/L 135-145 4242920503) K (test code = 4.2 mmol/L 3.5-5.0 2234187807) CL (test code = 101 mmol/L 98-108 8707005812) CO2 TOTAL (test code = 24 mmol/L 23-31 4981843396) AGAP (test code = 12 2-16 1358704280) BUN (test code = 19 mg/dL 7-23 4451921934) GLUCOSE (test code = 154 mg/dL 70-110 H 7368410206) CREATININE (test code = 1.60 mg/dL 0.60-1.25 H 9213592026) CALCIUM (test code = 9.4 mg/dL 8.6-10.6 3439158194) eGFR (test code = 45.4 mL/min/1.73m2 6711833267) SUNIL (test code = SUNIL) Association of [...] tests). Lab Interpretation Abnormal (test code = 27154-9) [facility] (NA, K, CL, CO2, GLUCOSE, BUN, CREATININE, CA)2022-07-31 01:06:41 Test Item Value Reference Range Interpretation Comments NA (test code = 137 mmol/L 135-145 5565539985) K (test code = 4.2 mmol/L 3.5-5.0 1629000475) CL (test code = 101 mmol/L 98-108 2096755688) CO2 TOTAL (test code = 24 mmol/L 23-31 5849119731) AGAP (test code = 12 2-16 8025696332) BUN (test code = 19 mg/dL 7-23 9399854690) GLUCOSE (test code = 154 mg/dL 70-110 H 8458785598) CREATININE (test code = 1.60 mg/dL 0.60-1.25 H 6010792361) CALCIUM (test code = 9.4 mg/dL 8.6-10.6 7541417409) eGFR (test code = 45.4 mL/min/1.73m2 5558548650) SUNIL (test code = SUNIL) Association of [...] tests). Lab Interpretation Abnormal (test code = 35937-8) [facility] Metabolic Panel (NA, K, CL, CO2, GLUCOSE, BUN, CREATININE, CA)2022-07-31 01:06:41 Test Item Value Reference Range Interpretation Comments NA (test code = 137 mmol/L 135-145 4795033291) K (test code = 4.2 mmol/L 3.5-5.0 1479762811) CL (test code = 101 mmol/L 98-108 0229715996) CO2 TOTAL (test code = 24 mmol/L 23-31 9739364267) AGAP (test code = 12 2-16 5086595503) BUN (test code = 19 mg/dL 7-23 2122035747) GLUCOSE (test code = 154 mg/dL 70-110 H 7965069240) CREATININE (test code = 1.60 mg/dL 0.60-1.25 H 2981093067) CALCIUM (test code = 9.4 mg/dL 8.6-10.6 6859502229) eGFR (test code = 45.4 mL/min/1.73m2 3963149658) SUNIL (test code = SUNIL) Association of [...] tests). Lab Interpretation Abnormal (test code = 52712-2) [facility] Metabolic Panel (NA, K, CL, CO2, GLUCOSE, BUN, CREATININE, CA)2022-07-31 01:06:41 Test Item Value Reference Range Interpretation Comments NA (test code = 137 mmol/L 135-145 7921086257) K (test code = 4.2 mmol/L 3.5-5.0 5140637787) CL (test code = 101 mmol/L 98-108 8898890853) CO2 TOTAL (test code = 24 mmol/L 23-31 6814231440) AGAP (test code = 12 2-16 3328191113) BUN (test code = 19 mg/dL 7-23 3793263677) GLUCOSE (test code = 154 mg/dL 70-110 H 5497768500) CREATININE (test code = 1.60 mg/dL 0.60-1.25 H 6443465244) CALCIUM (test code = 9.4 mg/dL 8.6-10.6 7920201853) eGFR (test code = 45.4 mL/min/1.73m2 2255772046) SUNIL (test code = SUNIL) Association of [...] tests). Lab Interpretation Abnormal (test code = 61378-6) [facility] Metabolic Panel (NA, K, CL, CO2, GLUCOSE, BUN, CREATININE, CA)2022-07-31 01:06:41 Test Item Value Reference Range Interpretation Comments NA (test code = 137 mmol/L 135-145 6973543427) K (test code = 4.2 mmol/L 3.5-5.0 3706261190) CL (test code = 101 mmol/L 98-108 6598434910) CO2 TOTAL (test code = 24 mmol/L 23-31 1428898162) AGAP (test code = 12 2-16 3174785008) BUN (test code = 19 mg/dL 7-23 0222107364) GLUCOSE (test code = 154 mg/dL 70-110 H 2267637202) CREATININE (test code = 1.60 mg/dL 0.60-1.25 H 7883879822) CALCIUM (test code = 9.4 mg/dL 8.6-10.6 2353757391) eGFR (test code = 45.4 mL/min/1.73m2 3790340584) SUNIL (test code = SUNIL) Association of [...] tests). Lab Interpretation Abnormal (test code = 65518-8) [facility] Metabolic Panel (NA, K, CL, CO2, GLUCOSE, BUN, CREATININE, CA)2022-07-31 01:06:41 Test Item Value Reference Range Interpretation Comments NA (test code = 137 mmol/L 135-145 3418634845) K (test code = 4.2 mmol/L 3.5-5.0 2940415954) CL (test code = 101 mmol/L 98-108 4277225877) CO2 TOTAL (test code = 24 mmol/L 23-31 3952581850) AGAP (test code = 12 2-16 5169129814) BUN (test code = 19 mg/dL 7-23 3379119645) GLUCOSE (test code = 154 mg/dL 70-110 H 9170307618) CREATININE (test code = 1.60 mg/dL 0.60-1.25 H 2954638279) CALCIUM (test code = 9.4 mg/dL 8.6-10.6 9558170127) eGFR (test code = 45.4 mL/min/1.73m2 7998445750) SUNIL (test code = SUNIL) Association of [...] tests). Lab Interpretation Abnormal (test code = 04658-1) [facility] Metabolic Panel (NA, K, CL, CO2, GLUCOSE, BUN, CREATININE, CA)2022-07-31 01:06:41 Test Item Value Reference Range Interpretation Comments NA (test code = 137 mmol/L 135-145 0828013641) K (test code = 4.2 mmol/L 3.5-5.0 4814970211) CL (test code = 101 mmol/L 98-108 8544705755) CO2 TOTAL (test code = 24 mmol/L 23-31 2298219558) AGAP (test code = 12 2-16 0017982780) BUN (test code = 19 mg/dL 7-23 0259365657) GLUCOSE (test code = 154 mg/dL 70-110 H 9765391519) CREATININE (test code = 1.60 mg/dL 0.60-1.25 H 3673582164) CALCIUM (test code = 9.4 mg/dL 8.6-10.6 7162240111) eGFR (test code = 45.4 mL/min/1.73m2 9718017284) SUNIL (test code = SUNIL) Association of [...] tests). Lab Interpretation Abnormal (test code = 41017-2) [facility] Metabolic Panel (NA, K, CL, CO2, GLUCOSE, BUN, CREATININE, CA)2022-07-31 01:06:41 Test Item Value Reference Range Interpretation Comments NA (test code = 137 mmol/L 135-145 3818757900) K (test code = 4.2 mmol/L 3.5-5.0 9632051045) CL (test code = 101 mmol/L 98-108 4528484385) CO2 TOTAL (test code = 24 mmol/L 23-31 0758233838) AGAP (test code = 12 2-16 8749717592) BUN (test code = 19 mg/dL 7-23 3547955137) GLUCOSE (test code = 154 mg/dL 70-110 H 7104173559) CREATININE (test code = 1.60 mg/dL 0.60-1.25 H 1674652193) CALCIUM (test code = 9.4 mg/dL 8.6-10.6 9679290453) eGFR (test code = 45.4 mL/min/1.73m2 4252953110) SUNIL (test code = SUNIL) Association of [...] tests). Lab Interpretation Abnormal (test code = 35766-9) [id number] Test Item Value Reference Interpretation Comments Range TROPONIN I (test 0.004 ng/mL See_Comment [Automated code = 7748385705) message] The system which generated this result [...] biotin. Lab Interpretation Normal (test code = 60355-5) [facility] [id number] 11:48:34 Test Item Value Reference Range Interpretation Comments MAGNESIUM (test code = 2257633775) 2.5 mg/dL 1.7-2.4 H Lab Interpretation (test code = Abnormal 80814-7) [place] [address]-01-17 11:48:34 Test Item Value Reference Range Interpretation Comments MAGNESIUM (test code = 8409764570) 2.5 mg/dL 1.7-2.4 H Lab Interpretation (test code = Abnormal 49332-6) [place] 992603-01-17 11:48:34 Test Item Value Reference Range Interpretation Comments MAGNESIUM (test code = 5286066903) 2.5 mg/dL 1.7-2.4 H Lab Interpretation (test code = Abnormal 67405-0) [place] [address]-01-17 11:48:34 Test Item Value Reference Range Interpretation Comments MAGNESIUM (test code = 1507491451) 2.5 mg/dL 1.7-2.4 H Lab Interpretation (test code = Abnormal 30213-1) [place] [address]-01-17 11:48:34 Test Item Value Reference Range Interpretation Comments MAGNESIUM (test code = 2440579753) 2.5 mg/dL 1.7-2.4 H Lab Interpretation (test code = Abnormal 22367-6) [place] [address]-01-17 11:48:34 Test Item Value Reference Range Interpretation Comments MAGNESIUM (test code = 1010410719) 2.5 mg/dL 1.7-2.4 H Lab Interpretation (test code = Abnormal 53786-7) [place] 992603-01-17 11:48:34 Test Item Value Reference Range Interpretation Comments MAGNESIUM (test code = 1318693645) 2.5 mg/dL 1.7-2.4 H Lab Interpretation (test code = Abnormal 26812-2) [place] [address]-01-17 11:48:34 Test Item Value Reference Range Interpretation Comments MAGNESIUM (test code = 0876288167) 2.5 mg/dL 1.7-2.4 H Lab Interpretation (test code = Abnormal 65239-3) [place] 992603-01-17 11:48:34 Test Item Value Reference Range Interpretation Comments MAGNESIUM (test code = 8962735252) 2.5 mg/dL 1.7-2.4 H Lab Interpretation (test code = Abnormal 77872-2) [place] 992603-01-17 11:48:34 Test Item Value Reference Range Interpretation Comments MAGNESIUM (test code = 1914412250) 2.5 mg/dL 1.7-2.4 H Lab Interpretation (test code = Abnormal 11768-0) [place] [address]-01-17 11:48:34 Test Item Value Reference Range Interpretation Comments MAGNESIUM (test code = 4641410614) 2.5 mg/dL 1.7-2.4 H Lab Interpretation (test code = Abnormal 85429-3) [place] [address]-01-17 11:48:34 Test Item Value Reference Range Interpretation Comments MAGNESIUM (test code = 1171787383) 2.5 mg/dL 1.7-2.4 H Lab Interpretation (test code = Abnormal 54768-9) [place] [address]-01-17 11:48:34 Test Item Value Reference Range Interpretation Comments MAGNESIUM (test code = 7771833974) 2.5 mg/dL 1.7-2.4 H Lab Interpretation (test code = Abnormal 73837-9) [facility]2023-01-17 11:48:34 Test Item Value Reference Range Interpretation Comments MAGNESIUM (test code = 5134753235) 2.5 mg/dL 1.7-2.4 H Lab Interpretation (test code = Abnormal 11157-1) [facility]2023-01-17 11:48:34 Test Item Value Reference Range Interpretation Comments MAGNESIUM (test code = 7362273268) 2.5 mg/dL 1.7-2.4 H Lab Interpretation (test code = Abnormal 64378-6) [place] [address]-01-17 11:48:34 Test Item Value Reference Range Interpretation Comments MAGNESIUM (test code = 9256647322) 2.5 mg/dL 1.7-2.4 H Lab Interpretation (test code = Abnormal 24082-1) [place] 992603-01-17 11:48:34 Test Item Value Reference Range Interpretation Comments MAGNESIUM (test code = 4591762283) 2.5 mg/dL 1.7-2.4 H Lab Interpretation (test code = Abnormal 41849-1) [facility] [id number] 11:48:34 Test Item Value Reference Range Interpretation Comments MAGNESIUM (test code = 4867530477) 2.5 mg/dL 1.7-2.4 H Lab Interpretation (test code = Abnormal 64927-2) [facility] [id number] 11:48:34 Test Item Value Reference Range Interpretation Comments MAGNESIUM (test code = 1458315999) 2.5 mg/dL 1.7-2.4 H Lab Interpretation (test code = Abnormal 49201-4) [facility] [id number] 11:48:34 Test Item Value Reference Range Interpretation Comments MAGNESIUM (test code = 4257780777) 2.5 mg/dL 1.7-2.4 H Lab Interpretation (test code = Abnormal 59462-1) [facility] [id number] 11:48:34 Test Item Value Reference Range Interpretation Comments MAGNESIUM (test code = 8159782838) 2.5 mg/dL 1.7-2.4 H Lab Interpretation (test code = Abnormal 34904-5) [facility] Metabolic Panel (NA, K, CL, CO2, GLUCOSE, BUN, CREATININE, CA)2022-07-09 11:48:13 Test Item Value Reference Range Interpretation Comments NA (test code = 135 mmol/L 135-145 2009437486) K (test code = 4.0 mmol/L 3.5-5.0 5762752913) CL (test code = 99 mmol/L 98-108 4347823079) CO2 TOTAL (test code = 31 mmol/L 23-31 2963207542) AGAP (test code = 2-16 4100705052) BUN (test code = 25 mg/dL 7-23 H 2120436070) GLUCOSE (test code = 124 mg/dL 70-110 H 1978578116) CREATININE (test code = 1.82 mg/dL 0.60-1.25 H 9628147739) CALCIUM (test code = 9.6 mg/dL 8.6-10.6 1273860211) eGFR (test code = mL/min/1.73m2 9122452005) SUNIL (test code = SUNIL) Association of [...] tests). Lab Interpretation Abnormal (test code = 62235-0) [facility] Metabolic Panel (NA, K, CL, CO2, GLUCOSE, BUN, CREATININE, CA)2022-07-09 11:48:13 Test Item Value Reference Range Interpretation Comments NA (test code = 135 mmol/L 135-145 2781034185) K (test code = 4.0 mmol/L 3.5-5.0 7637508029) CL (test code = 99 mmol/L 98-108 5933018056) CO2 TOTAL (test code = 31 mmol/L 23-31 7635342296) AGAP (test code = 2-16 2189109446) BUN (test code = 25 mg/dL 7-23 H 1657790575) GLUCOSE (test code = 124 mg/dL 70-110 H 6713186750) CREATININE (test code = 1.82 mg/dL 0.60-1.25 H 9843371650) CALCIUM (test code = 9.6 mg/dL 8.6-10.6 2339920750) eGFR (test code = mL/min/1.73m2 2044921955) SUNIL (test code = SUNIL) Association of [...] tests). Lab Interpretation Abnormal (test code = 06688-5) [facility] Metabolic Panel (NA, K, CL, CO2, GLUCOSE, BUN, CREATININE, CA)2022-07-09 11:48:13 Test Item Value Reference Range Interpretation Comments NA (test code = 135 mmol/L 135-145 [id number]) K (test code = 4.0 mmol/L 3.5-5.0 9320407354) CL (test code = 99 mmol/L 98-108 2918524653) CO2 TOTAL (test code = 31 mmol/L 23-31 3397222856) AGAP (test code = 5 2-16 6483738121) BUN (test code = 25 mg/dL 7-23 H 2265650797) GLUCOSE (test code = 124 mg/dL 70-110 H 3111347644) CREATININE (test code = 1.82 mg/dL 0.60-1.25 H 9049646702) CALCIUM (test code = 9.6 mg/dL 8.6-10.6 2356137904) eGFR (test code = 39.2 mL/min/1.73m2 2308446846) SUNIL (test code = SUNIL) Association of [...] tests). Lab Interpretation Abnormal (test code = 02156-3) [facility] Metabolic Panel (NA, K, CL, CO2, GLUCOSE, BUN, CREATININE, CA)2022-07-09 11:48:13 Test Item Value Reference Range Interpretation Comments NA (test code = 135 mmol/L 135-145 6342845497) K (test code = 4.0 mmol/L 3.5-5.0 4231324643) CL (test code = 99 mmol/L 98-108 8927345806) CO2 TOTAL (test code = 31 mmol/L 23-31 0279628969) AGAP (test code = 5 2-16 3462455449) BUN (test code = 25 mg/dL 7-23 H [id number]) GLUCOSE (test code = 124 mg/dL 70-110 H 7518160959) CREATININE (test code = 1.82 mg/dL 0.60-1.25 H 5159628548) CALCIUM (test code = 9.6 mg/dL 8.6-10.6 8345174654) eGFR (test code = 39.2 mL/min/1.73m2 1818396512) SUNIL (test code = SUNIL) Association of [...] tests). Lab Interpretation Abnormal (test code = 41048-8) [facility] with Iftukabnnsrl0669-71-56 10:49:31 Test Item Value Reference Range Interpretation Comments WBC (test code = See_Comment H [Automated 6690-2) message] The sy [...] as normal/abnormal . HGB (test code = 11.3 g/dL 12.2-16.4 L 718-7) HCT (test code = 35.0 % 38.4-49.3 L 4544-3) MCV (test code = 77.6 fL 81.7-95.6 L 787-2) MCH (test code = 25.1 pg 26.1-32.7 L 785-6) MCHC (test code = 32.3 g/dL 31.2-35.0 786-4) RDW-SD (test code = 45.1 fL 38.5-51.6 88530-1) RDW-CV (test code = 16.1 % 12.1-15.4 H 788-0) PLT (test code = See_Comment [Automated 777-3) message] The sy stem which generated this result transmitted reference range : 150 - 328 10*3/ ?L. The reference r shashi was not used to interpret this result as normal/abnormal . MPV (test code = 9.7 fL 9.8-13.0 L 13473-9) NRBC/100 WBC (test See_Comment [Automat ed code = 7706396762) message] The system which generated this result transmitted reference range : 0.0 - 10.0 /100 WBCs. The refer ence range was not u sed to interpret th is result as normal/abnormal . NRBC x10^3 (test code See_Comment [Auto mated = 5562522885) message] The s ystem which generated this result transmitted reference range : 10*3/?L. The reference range was not used to interpret this result as normal/abnormal . GRAN MAT (NEUT) % 70.4 % (test code = 770-8) IMM GRAN % (test code 0.50 % = 3969419444) LYMPH % (test code = 20.0 % 736-9) MONO % (test code = 7.5 % 5905-5) EOS % (test code = 1.1 % 713-8) BASO % (test code = 0.5 % 706-2) GRAN MAT x10^3(ANC) 9.06 10*3/uL 1.99-6.95 H (test code = 6858808328) IMM GRAN x10^3 (test 0.07 10*3/uL 0.00-0.06 H code = 4127958264) LYMPH x10^3 (test code 2.57 10*3/uL 1.09-3.23 = 731-0) MONO x10^3 (test code 0.97 10*3/uL 0.36-1.02 = 742-7) EOS x10^3 (test code = 0.14 10*3/uL 0.06-0.53 711-2) BASO x10^3 (test code 0.06 10*3/uL 0.01-0.09 = 704-7) Lab Interpretation Abnormal (test code = 49714-5) [facility] with Lplxddvgsqvc9225-57-96 10:49:31 Test Item Value Reference Range Interpretation Comments WBC (test code = See_Comment H [Automated 8018-2) message] The sy stem which generated this result transmitted reference range : 4.20 - 10.70 10*3/?L. The reference range was not used to interpret this result as normal/abnormal . RBC (test code = See_Comment [Automated 878-8) message] The sy stem which generated this result transmitted reference range : 4.26 - 5.52 10*6/?L. The reference range was not used to interpret this result as normal/abnormal . HGB (test code = 11.3 g/dL 12.2-16.4 L 718-7) HCT (test code = 35.0 % 38.4-49.3 L 4544-3) MCV (test code = 77.6 fL 81.7-95.6 L 787-2) MCH (test code = 25.1 pg 26.1-32.7 L 785-6) MCHC (test code = 32.3 g/dL 31.2-35.0 786-4) RDW-SD (test code = 45.1 fL 38.5-51.6 75876-0) RDW-CV (test code = 16.1 % 12.1-15.4 H 788-0) PLT (test code = See_Comment [Automated 777-3) message] The sy stem which generated this result transmitted reference range : 150 - 328 10*3/ ?L. The reference r shashi was not used to interpret this result as normal/abnormal . MPV (test code = 9.7 fL 9.8-13.0 L 45352-5) NRBC/100 WBC (test See_Comment [Automat ed code = 6666421945) message] The system which generated this result transmitted reference range : 0.0 - 10.0 /100 WBCs. The refer ence range was not u sed to interpret th is result as normal/abnormal . NRBC x10^3 (test code See_Comment [Auto mated = 4842104621) message] The s ystem which generated this result transmitted reference range : 10*3/?L. The reference range was not used to interpret this result as normal/abnormal . GRAN MAT (NEUT) % 70.4 % (test code = 770-8) IMM GRAN % (test code 0.50 % = 2652967571) LYMPH % (test code = 20.0 % 736-9) MONO % (test code = 7.5 % 5905-5) EOS % (test code = 1.1 % 713-8) BASO % (test code = 0.5 % 706-2) GRAN MAT x10^3(ANC) 9.06 10*3/uL 1.99-6.95 H (test code = 5175661566) IMM GRAN x10^3 (test 0.07 10*3/uL 0.00-0.06 H code = 3862730741) LYMPH x10^3 (test code 2.57 10*3/uL 1.09-3.23 = 731-0) MONO x10^3 (test code 0.97 10*3/uL 0.36-1.02 = 742-7) EOS x10^3 (test code = 0.14 10*3/uL 0.06-0.53 711-2) BASO x10^3 (test code 0.06 10*3/uL 0.01-0.09 = 704-7) Lab Interpretation Abnormal (test code = 81352-7) [facility] with Qkvusivveudw8745-82-32 10:49:31 Test Item Value Reference Range Interpretation Comments WBC (test code = 12.87 See_Comment H [Automated 6690-2) message] The sy stem which generated this result transmitted reference range : 4.20 - 10.70 10*3/?L. The reference range was not used to interpret this result as normal/abnormal . RBC (test code = 4.51 See_Comment [Automated 789-8) message] The sy stem which generated this result transmitted reference range : 4.26 - 5.52 10*6/?L. The reference range was not used to interpret this result as normal/abnormal . HGB (test code = 11.3 g/dL 12.2-16.4 L 718-7) HCT (test code = 35.0 % 38.4-49.3 L 4544-3) MCV (test code = 77.6 fL 81.7-95.6 L 787-2) MCH (test code = 25.1 pg 26.1-32.7 L 785-6) MCHC (test code = 32.3 g/dL 31.2-35.0 786-4) RDW-SD (test code = 45.1 fL 38.5-51.6 56863-4) RDW-CV (test code = 16.1 % 12.1-15.4 H 788-0) PLT (test code = 281 See_Comment [Automated 777-3) message] The sy stem which generated this result transmitted reference range : 150 - 328 10*3/ ?L. The reference r shashi was not used to interpret this result as normal/abnormal . MPV (test code = 9.7 fL 9.8-13.0 L 97284-8) NRBC/100 WBC (test 0.0 See_Comment [Automat ed code = 7178846582) message] The system which generated this result transmitted reference range : 0.0 - 10.0 /100 WBCs. The refer ence range was not u sed to interpret th is result as normal/abnormal . NRBC x10^3 (test code See_Comment [Auto mated = 6753332444) message] The s ystem which generated this result transmitted reference range : 10*3/?L. The reference range was not used to interpret this result as normal/abnormal . GRAN MAT (NEUT) % 70.4 % (test code = 770-8) IMM GRAN % (test code 0.50 % = 5559044045) LYMPH % (test code = 20.0 % 736-9) MONO % (test code = 7.5 % 5905-5) EOS % (test code = 1.1 % 713-8) BASO % (test code = 0.5 % 706-2) GRAN MAT x10^3(ANC) 9.06 10*3/uL 1.99-6.95 H (test code = 3436303747) IMM GRAN x10^3 (test 0.07 10*3/uL 0.00-0.06 H code = 8723331690) LYMPH x10^3 (test code 2.57 10*3/uL 1.09-3.23 = 731-0) MONO x10^3 (test code 0.97 10*3/uL 0.36-1.02 = 742-7) EOS x10^3 (test code = 0.14 10*3/uL 0.06-0.53 711-2) BASO x10^3 (test code 0.06 10*3/uL 0.01-0.09 = 704-7) Lab Interpretation Abnormal (test code = 59435-9) [facility] with Zmrzobcktnug6996-87-00 10:49:31 Test Item Value Reference Range Interpretation Comments WBC (test code = 12.87 See_Comment H [Automated 3814-2) message] The sy stem which generated this result transmitted reference range : 4.20 - 10.70 10*3/?L. The reference range was not used to interpret this result as normal/abnormal . RBC (test code = 4.51 See_Comment [Automated 789-8) message] The sy stem which generated this result transmitted reference range : 4.26 - 5.52 10*6/?L. The reference range was not used to interpret this result as normal/abnormal . HGB (test code = 11.3 g/dL 12.2-16.4 L 718-7) HCT (test code = 35.0 % 38.4-49.3 L 4544-3) MCV (test code = 77.6 fL 81.7-95.6 L 787-2) MCH (test code = 25.1 pg 26.1-32.7 L 785-6) MCHC (test code = 32.3 g/dL 31.2-35.0 786-4) RDW-SD (test code = 45.1 fL 38.5-51.6 83259-0) RDW-CV (test code = 16.1 % 12.1-15.4 H 788-0) PLT (test code = 281 See_Comment [Automated 777-3) message] The sy stem which generated this result transmitted reference range : 150 - 328 10*3/ ?L. The reference r shashi was not used to interpret this result as normal/abnormal . MPV (test code = 9.7 fL 9.8-13.0 L 90853-9) NRBC/100 WBC (test 0.0 See_Comment [Automat ed code = 2681617874) message] The system which generated this result transmitted reference range : 0.0 - 10.0 /100 WBCs. The refer ence range was not u sed to interpret th is result as normal/abnormal . NRBC x10^3 (test code See_Comment [Auto mated = 2855649235) message] The s ystem which generated this result transmitted reference range : 10*3/?L. The reference range was not used to interpret this result as normal/abnormal . GRAN MAT (NEUT) % 70.4 % (test code = 770-8) IMM GRAN % (test code 0.50 % = 2912918354) LYMPH % (test code = 20.0 % 736-9) MONO % (test code = 7.5 % 5905-5) EOS % (test code = 1.1 % 713-8) BASO % (test code = 0.5 % 706-2) GRAN MAT x10^3(ANC) 9.06 10*3/uL 1.99-6.95 H (test code = 9139917558) IMM GRAN x10^3 (test 0.07 10*3/uL 0.00-0.06 H code = 3507563277) LYMPH x10^3 (test code 2.57 10*3/uL 1.09-3.23 = 731-0) MONO x10^3 (test code 0.97 10*3/uL 0.36-1.02 = 742-7) EOS x10^3 (test code = 0.14 10*3/uL 0.06-0.53 711-2) BASO x10^3 (test code 0.06 10*3/uL 0.01-0.09 = 704-7) Lab Interpretation Abnormal (test code = 49712-2) [facility] with Kvnwjcyveuwb1313-56-83 10:49:31 Test Item Value Reference Range Interpretation Comments WBC (test code = 12.87 See_Comment H [Automated 6690-2) message] The sy stem which generated this result transmitted reference range : 4.20 - 10.70 10*3/?L. The reference range was not used to interpret this result as normal/abnormal . RBC (test code = 4.51 See_Comment [Automated 789-8) message] The sy stem which generated this result transmitted reference range : 4.26 - 5.52 10*6/?L. The reference range was not used to interpret this result as normal/abnormal . HGB (test code = 11.3 g/dL 12.2-16.4 L 718-7) HCT (test code = 35.0 % 38.4-49.3 L 4544-3) MCV (test code = 77.6 fL 81.7-95.6 L 787-2) MCH (test code = 25.1 pg 26.1-32.7 L 785-6) MCHC (test code = 32.3 g/dL 31.2-35.0 786-4) RDW-SD (test code = 45.1 fL 38.5-51.6 33277-5) RDW-CV (test code = 16.1 % 12.1-15.4 H 788-0) PLT (test code = 281 See_Comment [Automated 777-3) message] The sy stem which generated this result transmitted reference range : 150 - 328 10*3/ ?L. The reference r shashi was not used to interpret this result as normal/abnormal . MPV (test code = 9.7 fL 9.8-13.0 L 77346-5) NRBC/100 WBC (test 0.0 See_Comment [Automat ed code = 3338157722) message] The system which generated this result transmitted reference range : 0.0 - 10.0 /100 WBCs. The refer ence range was not u sed to interpret th is result as normal/abnormal . NRBC x10^3 (test code See_Comment [Auto mated = 7428817053) message] The s ystem which generated this result transmitted reference range : 10*3/?L. The reference range was not used to interpret this result as normal/abnormal . GRAN MAT (NEUT) % 70.4 % (test code = 770-8) IMM GRAN % (test code 0.50 % = 8797730508) LYMPH % (test code = 20.0 % 736-9) MONO % (test code = 7.5 % 5905-5) EOS % (test code = 1.1 % 713-8) BASO % (test code = 0.5 % 706-2) GRAN MAT x10^3(ANC) 9.06 10*3/uL 1.99-6.95 H (test code = 4279208409) IMM GRAN x10^3 (test 0.07 10*3/uL 0.00-0.06 H code = 8114671044) LYMPH x10^3 (test code 2.57 10*3/uL 1.09-3.23 = 731-0) MONO x10^3 (test code 0.97 10*3/uL 0.36-1.02 = 742-7) EOS x10^3 (test code = 0.14 10*3/uL 0.06-0.53 711-2) BASO x10^3 (test code 0.06 10*3/uL 0.01-0.09 = 704-7) Lab Interpretation Abnormal (test code = 97459-4) [facility] with Eoxwhbbceeio7400-80-74 10:49:31 Test Item Value Reference Range Interpretation Comments WBC (test code = 12.87 See_Comment H [Automated 6690-2) message] The sy stem which generated this result transmitted reference range : 4.20 - 10.70 10*3/?L. The reference range was not used to interpret this result as normal/abnormal . RBC (test code = 4.51 See_Comment [Automated 789-8) message] The sy stem which generated this result transmitted reference range : 4.26 - 5.52 10*6/?L. The reference range was not used to interpret this result as normal/abnormal . HGB (test code = 11.3 g/dL 12.2-16.4 L 718-7) HCT (test code = 35.0 % 38.4-49.3 L 4544-3) MCV (test code = 77.6 fL 81.7-95.6 L 787-2) MCH (test code = 25.1 pg 26.1-32.7 L 785-6) MCHC (test code = 32.3 g/dL 31.2-35.0 786-4) RDW-SD (test code = 45.1 fL 38.5-51.6 82199-7) RDW-CV (test code = 16.1 % 12.1-15.4 H 788-0) PLT (test code = 281 See_Comment [Automated 777-3) message] The sy stem which generated this result transmitted reference range : 150 - 328 10*3/ ?L. The reference r shashi was not used to interpret this result as normal/abnormal . MPV (test code = 9.7 fL 9.8-13.0 L 05282-7) NRBC/100 WBC (test 0.0 See_Comment [Automat ed code = 1103337384) message] The system which generated this result transmitted reference range : 0.0 - 10.0 /100 WBCs. The refer ence range was not u sed to interpret th is result as normal/abnormal . NRBC x10^3 (test code See_Comment [Auto mated = 6643216119) message] The s ystem which generated this result transmitted reference range : 10*3/?L. The reference range was not used to interpret this result as normal/abnormal . GRAN MAT (NEUT) % 70.4 % (test code = 770-8) IMM GRAN % (test code 0.50 % = 5862997016) LYMPH % (test code = 20.0 % 736-9) MONO % (test code = 7.5 % 5905-5) EOS % (test code = 1.1 % 713-8) BASO % (test code = 0.5 % 706-2) GRAN MAT x10^3(ANC) 9.06 10*3/uL 1.99-6.95 H (test code = 5465707660) IMM GRAN x10^3 (test 0.07 10*3/uL 0.00-0.06 H code = 5831329069) LYMPH x10^3 (test code 2.57 10*3/uL 1.09-3.23 = 731-0) MONO x10^3 (test code 0.97 10*3/uL 0.36-1.02 = 742-7) EOS x10^3 (test code = 0.14 10*3/uL 0.06-0.53 711-2) BASO x10^3 (test code 0.06 10*3/uL 0.01-0.09 = 704-7) Lab Interpretation Abnormal (test code = 24408-6) [facility] with Ddrqkdndaosm2028-12-69 10:49:31 Test Item Value Reference Range Interpretation Comments WBC (test code = 12.87 See_Comment H [Automated 1990-2) message] The sy stem which generated this result transmitted reference range : 4.20 - 10.70 10*3/?L. The reference range was not used to interpret this result as normal/abnormal . RBC (test code = 4.51 See_Comment [Automated 749-8) message] The sy stem which generated this result transmitted reference range : 4.26 - 5.52 10*6/?L. The reference range was not used to interpret this result as normal/abnormal . HGB (test code = 11.3 g/dL 12.2-16.4 L 718-7) HCT (test code = 35.0 % 38.4-49.3 L 4544-3) MCV (test code = 77.6 fL 81.7-95.6 L 787-2) MCH (test code = 25.1 pg 26.1-32.7 L 785-6) MCHC (test code = 32.3 g/dL 31.2-35.0 786-4) RDW-SD (test code = 45.1 fL 38.5-51.6 72976-6) RDW-CV (test code = 16.1 % 12.1-15.4 H 788-0) PLT (test code = 281 See_Comment [Automated 777-3) message] The sy stem which generated this result transmitted reference range : 150 - 328 10*3/ ?L. The reference r shashi was not used to interpret this result as normal/abnormal . MPV (test code = 9.7 fL 9.8-13.0 L 40356-1) NRBC/100 WBC (test 0.0 See_Comment [Automat ed code = 5109608626) message] The system which generated this result transmitted reference range : 0.0 - 10.0 /100 WBCs. The refer ence range was not u sed to interpret th is result as normal/abnormal . NRBC x10^3 (test code See_Comment [Auto mated = 0994765362) message] The s ystem which generated this result transmitted reference range : 10*3/?L. The reference range was not used to interpret this result as normal/abnormal . GRAN MAT (NEUT) % 70.4 % (test code = 770-8) IMM GRAN % (test code 0.50 % = 0494010587) LYMPH % (test code = 20.0 % 736-9) MONO % (test code = 7.5 % 5905-5) EOS % (test code = 1.1 % 713-8) BASO % (test code = 0.5 % 706-2) GRAN MAT x10^3(ANC) 9.06 10*3/uL 1.99-6.95 H (test code = 9464961140) IMM GRAN x10^3 (test 0.07 10*3/uL 0.00-0.06 H code = 1384180363) LYMPH x10^3 (test code 2.57 10*3/uL 1.09-3.23 = 731-0) MONO x10^3 (test code 0.97 10*3/uL 0.36-1.02 = 742-7) EOS x10^3 (test code = 0.14 10*3/uL 0.06-0.53 711-2) BASO x10^3 (test code 0.06 10*3/uL 0.01-0.09 = 704-7) Lab Interpretation Abnormal (test code = 20498-9) [facility] with Ytuerxdasvdf3646-83-39 10:49:31 Test Item Value Reference Range Interpretation Comments WBC (test code = 12.87 See_Comment H [Automated 6690-2) message] The sy stem which generated this result transmitted reference range : 4.20 - 10.70 10*3/?L. The reference range was not used to interpret this result as normal/abnormal . RBC (test code = 4.51 See_Comment [Automated 789-8) message] The sy stem which generated this result transmitted reference range : 4.26 - 5.52 10*6/?L. The reference range was not used to interpret this result as normal/abnormal . HGB (test code = 11.3 g/dL 12.2-16.4 L 718-7) HCT (test code = 35.0 % 38.4-49.3 L 4544-3) MCV (test code = 77.6 fL 81.7-95.6 L 787-2) MCH (test code = 25.1 pg 26.1-32.7 L 785-6) MCHC (test code = 32.3 g/dL 31.2-35.0 786-4) RDW-SD (test code = 45.1 fL 38.5-51.6 49021-3) RDW-CV (test code = 16.1 % 12.1-15.4 H 788-0) PLT (test code = 281 See_Comment [Automated 777-3) message] The sy stem which generated this result transmitted reference range : 150 - 328 10*3/ ?L. The reference r shashi was not used to interpret this result as normal/abnormal . MPV (test code = 9.7 fL 9.8-13.0 L 61569-6) NRBC/100 WBC (test 0.0 See_Comment [Automat ed code = 5928420410) message] The system which generated this result transmitted reference range : 0.0 - 10.0 /100 WBCs. The refer ence range was not u sed to interpret th is result as normal/abnormal . NRBC x10^3 (test code See_Comment [Auto mated = 4377869202) message] The s ystem which generated this result transmitted reference range : 10*3/?L. The reference range was not used to interpret this result as normal/abnormal . GRAN MAT (NEUT) % 70.4 % (test code = 770-8) IMM GRAN % (test code 0.50 % = 7434846672) LYMPH % (test code = 20.0 % 736-9) MONO % (test code = 7.5 % 5905-5) EOS % (test code = 1.1 % 713-8) BASO % (test code = 0.5 % 706-2) GRAN MAT x10^3(ANC) 9.06 10*3/uL 1.99-6.95 H (test code = 8805463067) IMM GRAN x10^3 (test 0.07 10*3/uL 0.00-0.06 H code = 2488837202) LYMPH x10^3 (test code 2.57 10*3/uL 1.09-3.23 = 731-0) MONO x10^3 (test code 0.97 10*3/uL 0.36-1.02 = 742-7) EOS x10^3 (test code = 0.14 10*3/uL 0.06-0.53 711-2) BASO x10^3 (test code 0.06 10*3/uL 0.01-0.09 = 704-7) Lab Interpretation Abnormal (test code = 34420-2) [facility] with Ugkjafjfvlux9728-58-37 10:49:31 Test Item Value Reference Range Interpretation Comments WBC (test code = 12.87 See_Comment H [Automated 6039-2) message] The sy stem which generated this result transmitted reference range : 4.20 - 10.70 10*3/?L. The reference range was not used to interpret this result as normal/abnormal . RBC (test code = 4.51 See_Comment [Automated 789-8) message] The sy stem which generated this result transmitted reference range : 4.26 - 5.52 10*6/?L. The reference range was not used to interpret this result as normal/abnormal . HGB (test code = 11.3 g/dL 12.2-16.4 L 718-7) HCT (test code = 35.0 % 38.4-49.3 L 4544-3) MCV (test code = 77.6 fL 81.7-95.6 L 787-2) MCH (test code = 25.1 pg 26.1-32.7 L 785-6) MCHC (test code = 32.3 g/dL 31.2-35.0 786-4) RDW-SD (test code = 45.1 fL 38.5-51.6 67620-7) RDW-CV (test code = 16.1 % 12.1-15.4 H 788-0) PLT (test code = 281 See_Comment [Automated 777-3) message] The sy stem which generated this result transmitted reference range : 150 - 328 10*3/ ?L. The reference r shashi was not used to interpret this result as normal/abnormal . MPV (test code = 9.7 fL 9.8-13.0 L 76762-2) NRBC/100 WBC (test 0.0 See_Comment [Automat ed code = 2230269519) message] The system which generated this result transmitted reference range : 0.0 - 10.0 /100 WBCs. The refer ence range was not u sed to interpret th is result as normal/abnormal . NRBC x10^3 (test code See_Comment [Auto mated = 2971786020) message] The s ystem which generated this result transmitted reference range : 10*3/?L. The reference range was not used to interpret this result as normal/abnormal . GRAN MAT (NEUT) % 70.4 % (test code = 770-8) IMM GRAN % (test code 0.50 % = 2650865600) LYMPH % (test code = 20.0 % 736-9) MONO % (test code = 7.5 % 5905-5) EOS % (test code = 1.1 % 713-8) BASO % (test code = 0.5 % 706-2) GRAN MAT x10^3(ANC) 9.06 10*3/uL 1.99-6.95 H (test code = 5807551025) IMM GRAN x10^3 (test 0.07 10*3/uL 0.00-0.06 H code = 3040995113) LYMPH x10^3 (test code 2.57 10*3/uL 1.09-3.23 = 731-0) MONO x10^3 (test code 0.97 10*3/uL 0.36-1.02 = 742-7) EOS x10^3 (test code = 0.14 10*3/uL 0.06-0.53 711-2) BASO x10^3 (test code 0.06 10*3/uL 0.01-0.09 = 704-7) Lab Interpretation Abnormal (test code = 04540-7) [facility] with Dljvtslvdkji5565-49-79 10:49:31 Test Item Value Reference Range Interpretation Comments WBC (test code = 12.87 See_Comment H [Automated 6690-2) message] The sy stem which generated this result transmitted reference range : 4.20 - 10.70 10*3/?L. The reference range was not used to interpret this result as normal/abnormal . RBC (test code = 4.51 See_Comment [Automated 789-8) message] The sy stem which generated this result transmitted reference range : 4.26 - 5.52 10*6/?L. The reference range was not used to interpret this result as normal/abnormal . HGB (test code = 11.3 g/dL 12.2-16.4 L 718-7) HCT (test code = 35.0 % 38.4-49.3 L 4544-3) MCV (test code = 77.6 fL 81.7-95.6 L 787-2) MCH (test code = 25.1 pg 26.1-32.7 L 785-6) MCHC (test code = 32.3 g/dL 31.2-35.0 786-4) RDW-SD (test code = 45.1 fL 38.5-51.6 55200-0) RDW-CV (test code = 16.1 % 12.1-15.4 H 788-0) PLT (test code = 281 See_Comment [Automated 777-3) message] The sy stem which generated this result transmitted reference range : 150 - 328 10*3/ ?L. The reference r shashi was not used to interpret this result as normal/abnormal . MPV (test code = 9.7 fL 9.8-13.0 L 72764-6) NRBC/100 WBC (test 0.0 See_Comment [Automat ed code = [id number]) message] The system which generated this result transmitted reference range : 0.0 - 10.0 /100 WBCs. The refer ence range was not u sed to interpret th is result as normal/abnormal . NRBC x10^3 (test code See_Comment [Auto mated = [id number]) message] The s ystem which generated this result transmitted reference range : 10*3/?L. The reference range was not used to interpret this result as normal/abnormal . GRAN MAT (NEUT) % 70.4 % (test code = 770-8) IMM GRAN % (test code 0.50 % = [id number]) LYMPH % (test code = 20.0 % 736-9) MONO % (test code = 7.5 % 5905-5) EOS % (test code = 1.1 % 713-8) BASO % (test code = 0.5 % 706-2) GRAN MAT x10^3(ANC) 9.06 10*3/uL 1.99-6.95 H (test code = [id number]) IMM GRAN x10^3 (test 0.07 10*3/uL 0.00-0.06 H code = [id number]) LYMPH x10^3 (test code 2.57 10*3/uL 1.09-3.23 = 731-0) MONO x10^3 (test code 0.97 10*3/uL 0.36-1.02 = 742-7) EOS x10^3 (test code = 0.14 10*3/uL 0.06-0.53 711-2) BASO x10^3 (test code 0.06 10*3/uL 0.01-0.09 = 704-7) Lab Interpretation Abnormal (test code = 00588-3) [facility] with [id number] 10:49:31 Test Item Value Reference Range Interpretation Comments WBC (test code = 12.87 See_Comment H [Automated 6690-2) message] The sy stem which generated this result transmitted reference range : 4.20 - 10.70 10*3/?L. The reference range was not used to interpret this result as normal/abnormal . RBC (test code = 4.51 See_Comment [Automated 789-8) message] The sy stem which generated this result transmitted reference range : 4.26 - 5.52 10*6/?L. The reference range was not used to interpret this result as normal/abnormal . HGB (test code = 11.3 g/dL 12.2-16.4 L 718-7) HCT (test code = 35.0 % 38.4-49.3 L 4544-3) MCV (test code = 77.6 fL 81.7-95.6 L 787-2) MCH (test code = 25.1 pg 26.1-32.7 L 785-6) MCHC (test code = 32.3 g/dL 31.2-35.0 786-4) RDW-SD (test code = 45.1 fL 38.5-51.6 29370-4) RDW-CV (test code = 16.1 % 12.1-15.4 H 788-0) PLT (test code = 281 See_Comment [Automated 777-3) message] The sy stem which generated this result transmitted reference range : 150 - 328 10*3/ ?L. The reference r shashi was not used to interpret this result as normal/abnormal . MPV (test code = 9.7 fL 9.8-13.0 L 47780-5) NRBC/100 WBC (test 0.0 See_Comment [Automat ed code = 7723365789) message] The system which generated this result transmitted reference range : 0.0 - 10.0 /100 WBCs. The refer ence range was not u sed to interpret th is result as normal/abnormal . NRBC x10^3 (test code See_Comment [Auto mated = 5344589216) message] The s ystem which generated this result transmitted reference range : 10*3/?L. The reference range was not used to interpret this result as normal/abnormal . GRAN MAT (NEUT) % 70.4 % (test code = 770-8) IMM GRAN % (test code 0.50 % = 8290329274) LYMPH % (test code = 20.0 % 736-9) MONO % (test code = 7.5 % 5905-5) EOS % (test code = 1.1 % 713-8) BASO % (test code = 0.5 % 706-2) GRAN MAT x10^3(ANC) 9.06 10*3/uL 1.99-6.95 H (test code = 0556936251) IMM GRAN x10^3 (test 0.07 10*3/uL 0.00-0.06 H code = 3218592883) LYMPH x10^3 (test code 2.57 10*3/uL 1.09-3.23 = 731-0) MONO x10^3 (test code 0.97 10*3/uL 0.36-1.02 = 742-7) EOS x10^3 (test code = 0.14 10*3/uL 0.06-0.53 711-2) BASO x10^3 (test code 0.06 10*3/uL 0.01-0.09 = 704-7) Lab Interpretation Abnormal (test code = 55777-1) [facility] with Plnaotjvkiel4223-97-92 10:49:31 Test Item Value Reference Range Interpretation Comments WBC (test code = 12.87 See_Comment H [Automated 3290-2) message] The sy stem which generated this result transmitted reference range : 4.20 - 10.70 10*3/?L. The reference range was not used to interpret this result as normal/abnormal . RBC (test code = 4.51 See_Comment [Automated 799-8) message] The sy stem which generated this result transmitted reference range : 4.26 - 5.52 10*6/?L. The reference range was not used to interpret this result as normal/abnormal . HGB (test code = 11.3 g/dL 12.2-16.4 L 718-7) HCT (test code = 35.0 % 38.4-49.3 L 4544-3) MCV (test code = 77.6 fL 81.7-95.6 L 787-2) MCH (test code = 25.1 pg 26.1-32.7 L 785-6) MCHC (test code = 32.3 g/dL 31.2-35.0 786-4) RDW-SD (test code = 45.1 fL 38.5-51.6 54809-1) RDW-CV (test code = 16.1 % 12.1-15.4 H 788-0) PLT (test code = 281 See_Comment [Automated 777-3) message] The sy stem which generated this result transmitted reference range : 150 - 328 10*3/ ?L. The reference r shashi was not used to interpret this result as normal/abnormal . MPV (test code = 9.7 fL 9.8-13.0 L 74246-2) NRBC/100 WBC (test 0.0 See_Comment [Automat ed code = 5797922436) message] The system which generated this result transmitted reference range : 0.0 - 10.0 /100 WBCs. The refer ence range was not u sed to interpret th is result as normal/abnormal . NRBC x10^3 (test code See_Comment [Auto mated = 7792031179) message] The s ystem which generated this result transmitted reference range : 10*3/?L. The reference range was not used to interpret this result as normal/abnormal . GRAN MAT (NEUT) % 70.4 % (test code = 770-8) IMM GRAN % (test code 0.50 % = 0193318783) LYMPH % (test code = 20.0 % 736-9) MONO % (test code = 7.5 % 5905-5) EOS % (test code = 1.1 % 713-8) BASO % (test code = 0.5 % 706-2) GRAN MAT x10^3(ANC) 9.06 10*3/uL 1.99-6.95 H (test code = 1882225179) IMM GRAN x10^3 (test 0.07 10*3/uL 0.00-0.06 H code = 4706056726) LYMPH x10^3 (test code 2.57 10*3/uL 1.09-3.23 = 731-0) MONO x10^3 (test code 0.97 10*3/uL 0.36-1.02 = 742-7) EOS x10^3 (test code = 0.14 10*3/uL 0.06-0.53 711-2) BASO x10^3 (test code 0.06 10*3/uL 0.01-0.09 = 704-7) Lab Interpretation Abnormal (test code = 31870-7) [facility] with Vtjgolnybucl9184-31-30 10:49:31 Test Item Value Reference Range Interpretation Comments WBC (test code = 12.87 See_Comment H [Automated 6690-2) message] The sy stem which generated this result transmitted reference range : 4.20 - 10.70 10*3/?L. The reference range was not used to interpret this result as normal/abnormal . RBC (test code = 4.51 See_Comment [Automated 789-8) message] The sy stem which generated this result transmitted reference range : 4.26 - 5.52 10*6/?L. The reference range was not used to interpret this result as normal/abnormal . HGB (test code = 11.3 g/dL 12.2-16.4 L 718-7) HCT (test code = 35.0 % 38.4-49.3 L 4544-3) MCV (test code = 77.6 fL 81.7-95.6 L 787-2) MCH (test code = 25.1 pg 26.1-32.7 L 785-6) MCHC (test code = 32.3 g/dL 31.2-35.0 786-4) RDW-SD (test code = 45.1 fL 38.5-51.6 22794-9) RDW-CV (test code = 16.1 % 12.1-15.4 H 788-0) PLT (test code = 281 See_Comment [Automated 777-3) message] The sy stem which generated this result transmitted reference range : 150 - 328 10*3/ ?L. The reference r shashi was not used to interpret this result as normal/abnormal . MPV (test code = 9.7 fL 9.8-13.0 L 88672-5) NRBC/100 WBC (test 0.0 See_Comment [Automat ed code = 9591457016) message] The system which generated this result transmitted reference range : 0.0 - 10.0 /100 WBCs. The refer ence range was not u sed to interpret th is result as normal/abnormal . NRBC x10^3 (test code See_Comment [Auto mated = 6934751786) message] The s ystem which generated this result transmitted reference range : 10*3/?L. The reference range was not used to interpret this result as normal/abnormal . GRAN MAT (NEUT) % 70.4 % (test code = 770-8) IMM GRAN % (test code 0.50 % = 7684284145) LYMPH % (test code = 20.0 % 736-9) MONO % (test code = 7.5 % 5905-5) EOS % (test code = 1.1 % 713-8) BASO % (test code = 0.5 % 706-2) GRAN MAT x10^3(ANC) 9.06 10*3/uL 1.99-6.95 H (test code = 2001324413) IMM GRAN x10^3 (test 0.07 10*3/uL 0.00-0.06 H code = 6034271522) LYMPH x10^3 (test code 2.57 10*3/uL 1.09-3.23 = 731-0) MONO x10^3 (test code 0.97 10*3/uL 0.36-1.02 = 742-7) EOS x10^3 (test code = 0.14 10*3/uL 0.06-0.53 711-2) BASO x10^3 (test code 0.06 10*3/uL 0.01-0.09 = 704-7) Lab Interpretation Abnormal (test code = 53720-6) [facility] with Qojkdrsbsjfb0145-02-04 10:49:31 Test Item Value Reference Range Interpretation Comments WBC (test code = 12.87 See_Comment H [Automated 4713-2) message] The sy stem which generated this result transmitted reference range : 4.20 - 10.70 10*3/?L. The reference range was not used to interpret this result as normal/abnormal . RBC (test code = 4.51 See_Comment [Automated 789-8) message] The sy stem which generated this result transmitted reference range : 4.26 - 5.52 10*6/?L. The reference range was not used to interpret this result as normal/abnormal . HGB (test code = 11.3 g/dL 12.2-16.4 L 718-7) HCT (test code = 35.0 % 38.4-49.3 L 4544-3) MCV (test code = 77.6 fL 81.7-95.6 L 787-2) MCH (test code = 25.1 pg 26.1-32.7 L 785-6) MCHC (test code = 32.3 g/dL 31.2-35.0 786-4) RDW-SD (test code = 45.1 fL 38.5-51.6 80861-8) RDW-CV (test code = 16.1 % 12.1-15.4 H 788-0) PLT (test code = 281 See_Comment [Automated 777-3) message] The sy stem which generated this result transmitted reference range : 150 - 328 10*3/ ?L. The reference r shashi was not used to interpret this result as normal/abnormal . MPV (test code = 9.7 fL 9.8-13.0 L 47146-7) NRBC/100 WBC (test 0.0 See_Comment [Automat ed code = 8706476052) message] The system which generated this result transmitted reference range : 0.0 - 10.0 /100 WBCs. The refer ence range was not u sed to interpret th is result as normal/abnormal . NRBC x10^3 (test code See_Comment [Auto mated = 9928089348) message] The s ystem which generated this result transmitted reference range : 10*3/?L. The reference range was not used to interpret this result as normal/abnormal . GRAN MAT (NEUT) % 70.4 % (test code = 770-8) IMM GRAN % (test code 0.50 % = 4617741873) LYMPH % (test code = 20.0 % 736-9) MONO % (test code = 7.5 % 5905-5) EOS % (test code = 1.1 % 713-8) BASO % (test code = 0.5 % 706-2) GRAN MAT x10^3(ANC) 9.06 10*3/uL 1.99-6.95 H (test code = 0737639447) IMM GRAN x10^3 (test 0.07 10*3/uL 0.00-0.06 H code = 9632639853) LYMPH x10^3 (test code 2.57 10*3/uL 1.09-3.23 = 731-0) MONO x10^3 (test code 0.97 10*3/uL 0.36-1.02 = 742-7) EOS x10^3 (test code = 0.14 10*3/uL 0.06-0.53 711-2) BASO x10^3 (test code 0.06 10*3/uL 0.01-0.09 = 704-7) Lab Interpretation Abnormal (test code = 51076-1) [facility] with Mvgrxtavtsjx0787-30-87 10:49:31 Test Item Value Reference Range Interpretation Comments WBC (test code = 12.87 See_Comment H [Automated 6690-2) message] The sy stem which generated this result transmitted reference range : 4.20 - 10.70 10*3/?L. The reference range was not used to interpret this result as normal/abnormal . RBC (test code = 4.51 See_Comment [Automated 789-8) message] The sy stem which generated this result transmitted reference range : 4.26 - 5.52 10*6/?L. The reference range was not used to interpret this result as normal/abnormal . HGB (test code = 11.3 g/dL 12.2-16.4 L 718-7) HCT (test code = 35.0 % 38.4-49.3 L 4544-3) MCV (test code = 77.6 fL 81.7-95.6 L 787-2) MCH (test code = 25.1 pg 26.1-32.7 L 785-6) MCHC (test code = 32.3 g/dL 31.2-35.0 786-4) RDW-SD (test code = 45.1 fL 38.5-51.6 04177-2) RDW-CV (test code = 16.1 % 12.1-15.4 H 788-0) PLT (test code = 281 See_Comment [Automated 777-3) message] The sy stem which generated this result transmitted reference range : 150 - 328 10*3/ ?L. The reference r shashi was not used to interpret this result as normal/abnormal . MPV (test code = 9.7 fL 9.8-13.0 L 94409-0) NRBC/100 WBC (test 0.0 See_Comment [Automat ed code = 9457761028) message] The system which generated this result transmitted reference range : 0.0 - 10.0 /100 WBCs. The refer ence range was not u sed to interpret th is result as normal/abnormal . NRBC x10^3 (test code See_Comment [Auto mated = 8862874517) message] The s ystem which generated this result transmitted reference range : 10*3/?L. The reference range was not used to interpret this result as normal/abnormal . GRAN MAT (NEUT) % 70.4 % (test code = 770-8) IMM GRAN % (test code 0.50 % = 9342536491) LYMPH % (test code = 20.0 % 736-9) MONO % (test code = 7.5 % 5905-5) EOS % (test code = 1.1 % 713-8) BASO % (test code = 0.5 % 706-2) GRAN MAT x10^3(ANC) 9.06 10*3/uL 1.99-6.95 H (test code = 2580953597) IMM GRAN x10^3 (test 0.07 10*3/uL 0.00-0.06 H code = 4612120126) LYMPH x10^3 (test code 2.57 10*3/uL 1.09-3.23 = 731-0) MONO x10^3 (test code 0.97 10*3/uL 0.36-1.02 = 742-7) EOS x10^3 (test code = 0.14 10*3/uL 0.06-0.53 711-2) BASO x10^3 (test code 0.06 10*3/uL 0.01-0.09 = 704-7) Lab Interpretation Abnormal (test code = 67115-1) [facility] with Rdlvtksmnoah1606-26-77 10:49:31 Test Item Value Reference Range Interpretation Comments WBC (test code = 12.87 See_Comment H [Automated 6690-2) message] The sy stem which generated this result transmitted reference range : 4.20 - 10.70 10*3/?L. The reference range was not used to interpret this result as normal/abnormal . RBC (test code = 4.51 See_Comment [Automated 789-8) message] The sy stem which generated this result transmitted reference range : 4.26 - 5.52 10*6/?L. The reference range was not used to interpret this result as normal/abnormal . HGB (test code = 11.3 g/dL 12.2-16.4 L 718-7) HCT (test code = 35.0 % 38.4-49.3 L 4544-3) MCV (test code = 77.6 fL 81.7-95.6 L 787-2) MCH (test code = 25.1 pg 26.1-32.7 L 785-6) MCHC (test code = 32.3 g/dL 31.2-35.0 786-4) RDW-SD (test code = 45.1 fL 38.5-51.6 14410-7) RDW-CV (test code = 16.1 % 12.1-15.4 H 788-0) PLT (test code = 281 See_Comment [Automated 777-3) message] The sy stem which generated this result transmitted reference range : 150 - 328 10*3/ ?L. The reference r shashi was not used to interpret this result as normal/abnormal . MPV (test code = 9.7 fL 9.8-13.0 L 99622-9) NRBC/100 WBC (test 0.0 See_Comment [Automat ed code = 6204471325) message] The system which generated this result transmitted reference range : 0.0 - 10.0 /100 WBCs. The refer ence range was not u sed to interpret th is result as normal/abnormal . NRBC x10^3 (test code See_Comment [Auto mated = 6226232104) message] The s ystem which generated this result transmitted reference range : 10*3/?L. The reference range was not used to interpret this result as normal/abnormal . GRAN MAT (NEUT) % 70.4 % (test code = 770-8) IMM GRAN % (test code 0.50 % = 6746656214) LYMPH % (test code = 20.0 % 736-9) MONO % (test code = 7.5 % 5905-5) EOS % (test code = 1.1 % 713-8) BASO % (test code = 0.5 % 706-2) GRAN MAT x10^3(ANC) 9.06 10*3/uL 1.99-6.95 H (test code = 6446095279) IMM GRAN x10^3 (test 0.07 10*3/uL 0.00-0.06 H code = 2711902812) LYMPH x10^3 (test code 2.57 10*3/uL 1.09-3.23 = 731-0) MONO x10^3 (test code 0.97 10*3/uL 0.36-1.02 = 742-7) EOS x10^3 (test code = 0.14 10*3/uL 0.06-0.53 711-2) BASO x10^3 (test code 0.06 10*3/uL 0.01-0.09 = 704-7) Lab Interpretation Abnormal (test code = 00632-4) [facility] with Pzbnsqyxlnbb4042-68-90 10:49:31 Test Item Value Reference Range Interpretation Comments WBC (test code = 12.87 See_Comment H [Automated 9690-2) message] The sy stem which generated this result transmitted reference range : 4.20 - 10.70 10*3/?L. The reference range was not used to interpret this result as normal/abnormal . RBC (test code = 4.51 See_Comment [Automated 259-8) message] The sy stem which generated this result transmitted reference range : 4.26 - 5.52 10*6/?L. The reference range was not used to interpret this result as normal/abnormal . HGB (test code = 11.3 g/dL 12.2-16.4 L 718-7) HCT (test code = 35.0 % 38.4-49.3 L 4544-3) MCV (test code = 77.6 fL 81.7-95.6 L 787-2) MCH (test code = 25.1 pg 26.1-32.7 L 785-6) MCHC (test code = 32.3 g/dL 31.2-35.0 786-4) RDW-SD (test code = 45.1 fL 38.5-51.6 37329-6) RDW-CV (test code = 16.1 % 12.1-15.4 H 788-0) PLT (test code = 281 See_Comment [Automated 777-3) message] The sy stem which generated this result transmitted reference range : 150 - 328 10*3/ ?L. The reference r shashi was not used to interpret this result as normal/abnormal . MPV (test code = 9.7 fL 9.8-13.0 L 70844-9) NRBC/100 WBC (test 0.0 See_Comment [Automat ed code = 7843617037) message] The system which generated this result transmitted reference range : 0.0 - 10.0 /100 WBCs. The refer ence range was not u sed to interpret th is result as normal/abnormal . NRBC x10^3 (test code See_Comment [Auto mated = 8082754925) message] The s ystem which generated this result transmitted reference range : 10*3/?L. The reference range was not used to interpret this result as normal/abnormal . GRAN MAT (NEUT) % 70.4 % (test code = 770-8) IMM GRAN % (test code 0.50 % = 2140491455) LYMPH % (test code = 20.0 % 736-9) MONO % (test code = 7.5 % 5905-5) EOS % (test code = 1.1 % 713-8) BASO % (test code = 0.5 % 706-2) GRAN MAT x10^3(ANC) 9.06 10*3/uL 1.99-6.95 H (test code = 6024261689) IMM GRAN x10^3 (test 0.07 10*3/uL 0.00-0.06 H code = 8789973795) LYMPH x10^3 (test code 2.57 10*3/uL 1.09-3.23 = 731-0) MONO x10^3 (test code 0.97 10*3/uL 0.36-1.02 = 742-7) EOS x10^3 (test code = 0.14 10*3/uL 0.06-0.53 711-2) BASO x10^3 (test code 0.06 10*3/uL 0.01-0.09 = 704-7) Lab Interpretation Abnormal (test code = 28442-6) [facility] with Pfmvdyopyuxm1719-40-35 10:49:31 Test Item Value Reference Range Interpretation Comments WBC (test code = 12.87 See_Comment H [Automated 6690-2) message] The sy stem which generated this result transmitted reference range : 4.20 - 10.70 10*3/?L. The reference range was not used to interpret this result as normal/abnormal . RBC (test code = 4.51 See_Comment [Automated 789-8) message] The sy stem which generated this result transmitted reference range : 4.26 - 5.52 10*6/?L. The reference range was not used to interpret this result as normal/abnormal . HGB (test code = 11.3 g/dL 12.2-16.4 L 718-7) HCT (test code = 35.0 % 38.4-49.3 L 4544-3) MCV (test code = 77.6 fL 81.7-95.6 L 787-2) MCH (test code = 25.1 pg 26.1-32.7 L 785-6) MCHC (test code = 32.3 g/dL 31.2-35.0 786-4) RDW-SD (test code = 45.1 fL 38.5-51.6 06957-4) RDW-CV (test code = 16.1 % 12.1-15.4 H 788-0) PLT (test code = 281 See_Comment [Automated 777-3) message] The sy stem which generated this result transmitted reference range : 150 - 328 10*3/ ?L. The reference r shashi was not used to interpret this result as normal/abnormal . MPV (test code = 9.7 fL 9.8-13.0 L 60716-9) NRBC/100 WBC (test 0.0 See_Comment [Automat ed code = 5687650418) message] The system which generated this result transmitted reference range : 0.0 - 10.0 /100 WBCs. The refer ence range was not u sed to interpret th is result as normal/abnormal . NRBC x10^3 (test code See_Comment [Auto mated = 5892467500) message] The s ystem which generated this result transmitted reference range : 10*3/?L. The reference range was not used to interpret this result as normal/abnormal . GRAN MAT (NEUT) % 70.4 % (test code = 770-8) IMM GRAN % (test code 0.50 % = 1428306476) LYMPH % (test code = 20.0 % 736-9) MONO % (test code = 7.5 % 5905-5) EOS % (test code = 1.1 % 713-8) BASO % (test code = 0.5 % 706-2) GRAN MAT x10^3(ANC) 9.06 10*3/uL 1.99-6.95 H (test code = 5781621696) IMM GRAN x10^3 (test 0.07 10*3/uL 0.00-0.06 H code = 8738044590) LYMPH x10^3 (test code 2.57 10*3/uL 1.09-3.23 = 731-0) MONO x10^3 (test code 0.97 10*3/uL 0.36-1.02 = 742-7) EOS x10^3 (test code = 0.14 10*3/uL 0.06-0.53 711-2) BASO x10^3 (test code 0.06 10*3/uL 0.01-0.09 = 704-7) Lab Interpretation Abnormal (test code = 08872-5) [facility] with Nghwpkxkyzsr0671-26-33 10:49:31 Test Item Value Reference Range Interpretation Comments WBC (test code = 12.87 See_Comment H [Automated 0654-2) message] The sy stem which generated this result transmitted reference range : 4.20 - 10.70 10*3/?L. The reference range was not used to interpret this result as normal/abnormal . RBC (test code = 4.51 See_Comment [Automated 789-8) message] The sy stem which generated this result transmitted reference range : 4.26 - 5.52 10*6/?L. The reference range was not used to interpret this result as normal/abnormal . HGB (test code = 11.3 g/dL 12.2-16.4 L 718-7) HCT (test code = 35.0 % 38.4-49.3 L 4544-3) MCV (test code = 77.6 fL 81.7-95.6 L 787-2) MCH (test code = 25.1 pg 26.1-32.7 L 785-6) MCHC (test code = 32.3 g/dL 31.2-35.0 786-4) RDW-SD (test code = 45.1 fL 38.5-51.6 94409-5) RDW-CV (test code = 16.1 % 12.1-15.4 H 788-0) PLT (test code = 281 See_Comment [Automated 777-3) message] The sy stem which generated this result transmitted reference range : 150 - 328 10*3/ ?L. The reference r shashi was not used to interpret this result as normal/abnormal . MPV (test code = 9.7 fL 9.8-13.0 L 72228-5) NRBC/100 WBC (test 0.0 See_Comment [Automat ed code = 5401218092) message] The system which generated this result transmitted reference range : 0.0 - 10.0 /100 WBCs. The refer ence range was not u sed to interpret th is result as normal/abnormal . NRBC x10^3 (test code See_Comment [Auto mated = 3421953748) message] The s ystem which generated this result transmitted reference range : 10*3/?L. The reference range was not used to interpret this result as normal/abnormal . GRAN MAT (NEUT) % 70.4 % (test code = 770-8) IMM GRAN % (test code 0.50 % = 4019199128) LYMPH % (test code = 20.0 % 736-9) MONO % (test code = 7.5 % 5905-5) EOS % (test code = 1.1 % 713-8) BASO % (test code = 0.5 % 706-2) GRAN MAT x10^3(ANC) 9.06 10*3/uL 1.99-6.95 H (test code = 5559001990) IMM GRAN x10^3 (test 0.07 10*3/uL 0.00-0.06 H code = 0449406968) LYMPH x10^3 (test code 2.57 10*3/uL 1.09-3.23 = 731-0) MONO x10^3 (test code 0.97 10*3/uL 0.36-1.02 = 742-7) EOS x10^3 (test code = 0.14 10*3/uL 0.06-0.53 711-2) BASO x10^3 (test code 0.06 10*3/uL 0.01-0.09 = 704-7) Lab Interpretation Abnormal (test code = 37595-7) [facility] with Hjqfxzutnwld7897-83-73 10:49:31 Test Item Value Reference Range Interpretation Comments WBC (test code = 12.87 See_Comment H [Automated 6690-2) message] The sy stem which generated this result transmitted reference range : 4.20 - 10.70 10*3/?L. The reference range was not used to interpret this result as normal/abnormal . RBC (test code = 4.51 See_Comment [Automated 789-8) message] The sy stem which generated this result transmitted reference range : 4.26 - 5.52 10*6/?L. The reference range was not used to interpret this result as normal/abnormal . HGB (test code = 11.3 g/dL 12.2-16.4 L 718-7) HCT (test code = 35.0 % 38.4-49.3 L 4544-3) MCV (test code = 77.6 fL 81.7-95.6 L 787-2) MCH (test code = 25.1 pg 26.1-32.7 L 785-6) MCHC (test code = 32.3 g/dL 31.2-35.0 786-4) RDW-SD (test code = 45.1 fL 38.5-51.6 12437-7) RDW-CV (test code = 16.1 % 12.1-15.4 H 788-0) PLT (test code = 281 See_Comment [Automated 777-3) message] The sy stem which generated this result transmitted reference range : 150 - 328 10*3/ ?L. The reference r shashi was not used to interpret this result as normal/abnormal . MPV (test code = 9.7 fL 9.8-13.0 L 41861-7) NRBC/100 WBC (test 0.0 See_Comment [Automat ed code = 6455039079) message] The system which generated this result transmitted reference range : 0.0 - 10.0 /100 WBCs. The refer ence range was not u sed to interpret th is result as normal/abnormal . NRBC x10^3 (test code See_Comment [Auto mated = 9436073675) message] The s ystem which generated this result transmitted reference range : 10*3/?L. The reference range was not used to interpret this result as normal/abnormal . GRAN MAT (NEUT) % 70.4 % (test code = 770-8) IMM GRAN % (test code 0.50 % = 7197299400) LYMPH % (test code = 20.0 % 736-9) MONO % (test code = 7.5 % 5905-5) EOS % (test code = 1.1 % 713-8) BASO % (test code = 0.5 % 706-2) GRAN MAT x10^3(ANC) 9.06 10*3/uL 1.99-6.95 H (test code = 6234271133) IMM GRAN x10^3 (test 0.07 10*3/uL 0.00-0.06 H code = 7771389127) LYMPH x10^3 (test code 2.57 10*3/uL 1.09-3.23 = 731-0) MONO x10^3 (test code 0.97 10*3/uL 0.36-1.02 = 742-7) EOS x10^3 (test code = 0.14 10*3/uL 0.06-0.53 711-2) BASO x10^3 (test code 0.06 10*3/uL 0.01-0.09 = 704-7) Lab Interpretation Abnormal (test code = 97122-4) [facility] with [id number] 10:49:31 Test Item Value Reference Range Interpretation Comments WBC (test code = 12.87 See_Comment H [Automated 6690-2) message] The sy stem which generated this result transmitted reference range : 4.20 - 10.70 10*3/?L. The reference range was not used to interpret this result as normal/abnormal . RBC (test code = 4.51 See_Comment [Automated 789-8) message] The sy stem which generated this result transmitted reference range : 4.26 - 5.52 10*6/?L. The reference range was not used to interpret this result as normal/abnormal . HGB (test code = 11.3 g/dL 12.2-16.4 L 718-7) HCT (test code = 35.0 % 38.4-49.3 L 4544-3) MCV (test code = 77.6 fL 81.7-95.6 L 787-2) MCH (test code = 25.1 pg 26.1-32.7 L 785-6) MCHC (test code = 32.3 g/dL 31.2-35.0 786-4) RDW-SD (test code = 45.1 fL 38.5-51.6 15640-3) RDW-CV (test code = 16.1 % 12.1-15.4 H 788-0) PLT (test code = 281 See_Comment [Automated 777-3) message] The sy stem which generated this result transmitted reference range : 150 - 328 10*3/ ?L. The reference r shashi was not used to interpret this result as normal/abnormal . MPV (test code = 9.7 fL 9.8-13.0 L 17280-6) NRBC/100 WBC (test 0.0 See_Comment [Automat ed code = [id number]) message] The system which generated this result transmitted reference range : 0.0 - 10.0 /100 WBCs. The refer ence range was not u sed to interpret th is result as normal/abnormal . NRBC x10^3 (test code See_Comment [Auto mated = [id number]) message] The s ystem which generated this result transmitted reference range : 10*3/?L. The reference range was not used to interpret this result as normal/abnormal . GRAN MAT (NEUT) % 70.4 % (test code = 770-8) IMM GRAN % (test code 0.50 % = [id number]) LYMPH % (test code = 20.0 % 736-9) MONO % (test code = 7.5 % 5905-5) EOS % (test code = 1.1 % 713-8) BASO % (test code = 0.5 % 706-2) GRAN MAT x10^3(ANC) 9.06 10*3/uL 1.99-6.95 H (test code = [id number]) IMM GRAN x10^3 (test 0.07 10*3/uL 0.00-0.06 H code = [id number]) LYMPH x10^3 (test code 2.57 10*3/uL 1.09-3.23 = 731-0) MONO x10^3 (test code 0.97 10*3/uL 0.36-1.02 = 742-7) EOS x10^3 (test code = 0.14 10*3/uL 0.06-0.53 711-2) BASO x10^3 (test code 0.06 10*3/uL 0.01-0.09 = 704-7) Lab Interpretation Abnormal (test code = 22941-8) [facility] GLUCOSE (AUTOMATED)2022-06-18 17:22:49 Test Item Value Reference Range Interpretation Comments POCT GLU (test code = 6430807234) 129 mg/dL 70-110 H Lab Interpretation (test code = Abnormal 74923-7) [facility] GLUCOSE (AUTOMATED)2022-06-18 17:22:49 Test Item Value Reference Range Interpretation Comments POCT GLU (test code = 155 mg/dL 70-110 H Notifi ed Provider [id number]) Lab Interpretation (test Abnormal code = 08341-2) [facility] GLUCOSE (AUTOMATED)2022-06-18 17:22:49 Test Item Value Reference Range Interpretation Comments POCT GLU (test code = 155 mg/dL 70-110 H Notifi ed Provider [id number]) Lab Interpretation (test Abnormal code = 83448-2) [facility] GLUCOSE (AUTOMATED)2022-06-18 17:22:49 Test Item Value Reference Range Interpretation Comments POCT GLU (test code = 155 mg/dL 70-110 H Notifi ed Provider [id number]) Lab Interpretation (test Abnormal code = 85226-1) [facility] GLUCOSE (AUTOMATED)2022-06-18 17:22:49 Test Item Value Reference Range Interpretation Comments POCT GLU (test code = 155 mg/dL 70-110 H Notifi ed Provider [id number]) Lab Interpretation (test Abnormal code = 25332-4) [facility] GLUCOSE (AUTOMATED)2022-06-18 17:22:49 Test Item Value Reference Range Interpretation Comments POCT GLU (test code = 155 mg/dL 70-110 H Notifi ed Provider [id number]) Lab Interpretation (test Abnormal code = 50825-2) [facility] GLUCOSE (AUTOMATED)2022-06-18 17:22:49 Test Item Value Reference Range Interpretation Comments POCT GLU (test code = 155 mg/dL 70-110 H Notifi ed Provider [id number]) Lab Interpretation (test Abnormal code = 68765-1) [facility] GLUCOSE (AUTOMATED)2022-06-18 17:22:49 Test Item Value Reference Range Interpretation Comments POCT GLU (test code = 155 mg/dL 70-110 H Notifi ed Provider [id number]) Lab Interpretation (test Abnormal code = 33589-7) [facility] GLUCOSE (AUTOMATED)2022-06-18 17:22:49 Test Item Value Reference Range Interpretation Comments POCT GLU (test code = 155 mg/dL 70-110 H Notifi ed Provider [id number]) Lab Interpretation (test Abnormal code = 24285-2) [facility] GLUCOSE (AUTOMATED)2022-06-18 17:22:49 Test Item Value Reference Range Interpretation Comments POCT GLU (test code = 155 mg/dL 70-110 H Notifi ed Provider [id number]) Lab Interpretation (test Abnormal code = 76152-9) [facility] GLUCOSE (AUTOMATED)2022-06-18 17:22:49 Test Item Value Reference Range Interpretation Comments POCT GLU (test code = 155 mg/dL 70-110 H Notifi ed Provider [id number]) Lab Interpretation (test Abnormal code = 06561-0) [facility] GLUCOSE (AUTOMATED)2022-06-18 17:22:49 Test Item Value Reference Range Interpretation Comments POCT GLU (test code = 155 mg/dL 70-110 H Notifi ed Provider [id number]) Lab Interpretation (test Abnormal code = 59692-1) [facility] GLUCOSE (AUTOMATED)2022-06-18 17:22:49 Test Item Value Reference Range Interpretation Comments POCT GLU (test code = 155 mg/dL 70-110 H Notifi ed Provider [id number]) Lab Interpretation (test Abnormal code = 82137-9) [facility] GLUCOSE (AUTOMATED)2022-06-18 17:22:49 Test Item Value Reference Range Interpretation Comments POCT GLU (test code = 155 mg/dL 70-110 H Notifi ed Provider [id number]) Lab Interpretation (test Abnormal code = 91876-4) [facility] GLUCOSE (AUTOMATED)2022-06-18 17:22:49 Test Item Value Reference Range Interpretation Comments POCT GLU (test code = 155 mg/dL 70-110 H Notifi ed Provider [id number]) Lab Interpretation (test Abnormal code = 89906-5) [facility] GLUCOSE (AUTOMATED)2022-06-18 17:22:49 Test Item Value Reference Range Interpretation Comments POCT GLU (test code = 155 mg/dL 70-110 H Notifi ed Provider [id number]) Lab Interpretation (test Abnormal code = 38142-4) [facility] GLUCOSE (AUTOMATED)2022-06-18 17:22:49 Test Item Value Reference Range Interpretation Comments POCT GLU (test code = 155 mg/dL 70-110 H Notifi ed Provider [id number]) Lab Interpretation (test Abnormal code = 71901-4) [facility] GLUCOSE (AUTOMATED)2022-06-18 17:22:49 Test Item Value Reference Range Interpretation Comments POCT GLU (test code = 155 mg/dL 70-110 H Notifi ed Provider [id number]) Lab Interpretation (test Abnormal code = 40156-5) [facility] GLUCOSE (AUTOMATED)2022-06-18 17:22:49 Test Item Value Reference Range Interpretation Comments POCT GLU (test code = 155 mg/dL 70-110 H Notifi ed Provider [id number]) Lab Interpretation (test Abnormal code = 60207-5) [facility] (88202[facility]22-[facility]-18 12:54:48 Test Item Value Reference Range Interpretation Comments NA (test code = 138 mmol/L 135-145 1839384997) K (test code = 3.8 mmol/L 3.5-5.0 7481367218) CL (test code = 101 mmol/L 98-108 0701525513) CO2 TOTAL (test code = 33 mmol/L 23-31 H 1733498820) AGAP (test code = 2-16 0556778172) BUN (test code = 20 mg/dL 7-23 8655582557) GLUCOSE (test code = 134 mg/dL 70-110 H 7647259055) CREATININE (test code = 1.59 mg/dL 0.60-1.25 H 8003855785) TOTAL BILI (test code = 0.5 mg/dL 0.1-1.0 4289251503) CALCIUM (test code = 8.9 mg/dL 8.6-10.6 1419883069) T PROTEIN (test code = 6.7 g/dL 6.3-8.2 9370769168) ALBUMIN (test code = 3.4 g/dL 3.5-5.0 L 3718330292) ALK PHOS (test code = 118 U/L 34-122 9580891247) ALTv (test code = 25 U/L 5-50 1742-6) AST(SGOT) (test code = 24 U/L 13-40 8744816126) eGFR (test code = mL/min/1.73m2 7121626414) SUNIL (test code = SUNIL) Association of [...] tests). Lab Interpretation Abnormal (test code = 97558-2) [facility]. METABOLIC PANEL (20768)2022-06-18 12:54:48 Test Item Value Reference Range Interpretation Comments NA (test code = 138 mmol/L 135-145 8345342227) K (test code = 3.8 mmol/L 3.5-5.0 6190721464) CL (test code = 101 mmol/L 98-108 7038345784) CO2 TOTAL (test code = 33 mmol/L 23-31 H 7111134044) AGAP (test code = 2-16 6247891877) BUN (test code = 20 mg/dL 7-23 8401851770) GLUCOSE (test code = 134 mg/dL 70-110 H 9987254726) CREATININE (test code = 1.59 mg/dL 0.60-1.25 H 7320561537) TOTAL BILI (test code = 0.5 mg/dL 0.1-1.6 5946768509) CALCIUM (test code = 8.9 mg/dL 8.6-10.6 4956280879) T PROTEIN (test code = 6.7 g/dL 6.3-8.2 4478117416) ALBUMIN (test code = 3.4 g/dL 3.5-5.0 L 4117808006) ALK PHOS (test code = 118 U/L 34-122 3019454121) ALTv (test code = 25 U/L 5-50 1742-6) AST(SGOT) (test code = 24 U/L 13-40 5960487337) eGFR (test code = mL/min/1.73m2 5281148982) SUNIL (test code = SUNIL) Association of [...] tests). Lab Interpretation Abnormal (test code = 93182-2) [id number] 12:39:40 Test Item Value Reference Interpretation Comments Range TROPONIN I (test 0.007 ng/mL See_Comment [Automated code = 1350952408) message] The system which generated this result [...] biotin. Lab Interpretation Normal (test code = 20447-2) [facility] [id number] 12:39:40 Test Item Value Reference Interpretation Comments Range TROPONIN I (test 0.007 ng/mL See_Comment [Automated code = 3607204309) message] The system which generated this result [...] biotin. Lab Interpretation Normal (test code = 90464-5) [facility] [id number] 12:39:40 Test Item Value Reference Interpretation Comments Range TROPONIN I (test 0.007 ng/mL See_Comment [Automated code = 7405259772) message] The system which generated this result [...] biotin. Lab Interpretation Normal (test code = 10633-7) [facility] Test Item Value Reference Range Interpretation Comments MAGNESIUM (test code = 6662386747) 2.1 mg/dL 1.7-2.4 Lab Interpretation (test code = Normal 22868-3) [facility] 12:37:38 Test Item Value Reference Range Interpretation Comments MAGNESIUM (test code = 6622726990) 2.1 mg/dL 1.7-2.4 Lab Interpretation (test code = Normal 91885-6) [facility] Test Item Value Reference Range Interpretation Comments MAGNESIUM (test code = 5197887262) 2.1 mg/dL 1.7-2.4 Lab Interpretation (test code = Normal 59031-5) [facility] 12:37:18 Test Item Value Reference Range Interpretation Comments PHOSPHORUS (test code = 2034974263) 3.5 mg/dL 2.5-5.0 Lab Interpretation (test code = Normal 04754-6) [facility] [id number] 12:37:18 Test Item Value Reference Range Interpretation Comments CK (test code = 2745021708) 48 U/L 33-194 Lab Interpretation (test code = Normal 82372-1) [facility] 12:37:18 Test Item Value Reference Range Interpretation Comments PHOSPHORUS (test code = 1003193639) 3.5 mg/dL 2.5-5.0 Lab Interpretation (test code = Normal 06109-7) [facility] [id number] 12:37:18 Test Item Value Reference Range Interpretation Comments CK (test code = 6012193676) 48 U/L 33-194 Lab Interpretation (test code = Normal 84205-3) [facility] 12:37:18 Test Item Value Reference Range Interpretation Comments PHOSPHORUS (test code = 8069892991) 3.5 mg/dL 2.5-5.0 Lab Interpretation (test code = Normal 67597-7) [facility] [id number] 12:37:18 Test Item Value Reference Range Interpretation Comments CK (test code = 4129648252) 48 U/L 33-194 Lab Interpretation (test code = Normal 87143-7) [facility] 12:37:18 Test Item Value Reference Range Interpretation Comments PHOSPHORUS (test code = 1557322638) 3.5 mg/dL 2.5-5.0 Lab Interpretation (test code = Normal 84641-2) [facility] [id number] 12:37:18 Test Item Value Reference Range Interpretation Comments CK (test code = 9089516365) 48 U/L 33-194 Lab Interpretation (test code = Normal 80416-8) [facility] 12:37:18 Test Item Value Reference Range Interpretation Comments PHOSPHORUS (test code = 3684408228) 3.5 mg/dL 2.5-5.0 Lab Interpretation (test code = Normal 66660-1) [facility] [id number] 12:37:18 Test Item Value Reference Range Interpretation Comments CK (test code = 8118572593) 48 U/L 33-194 Lab Interpretation (test code = Normal 70013-2) [facility] 12:37:18 Test Item Value Reference Range Interpretation Comments PHOSPHORUS (test code = 0334058282) 3.5 mg/dL 2.5-5.0 Lab Interpretation (test code = Normal 65488-2) [facility] [id number] 12:37:18 Test Item Value Reference Range Interpretation Comments CK (test code = 7659773552) 48 U/L 33-194 Lab Interpretation (test code = Normal 22133-2) [facility] 12:37:18 Test Item Value Reference Range Interpretation Comments PHOSPHORUS (test code = 5113990259) 3.5 mg/dL 2.5-5.0 Lab Interpretation (test code = Normal 11192-2) [facility] [id number] 12:37:18 Test Item Value Reference Range Interpretation Comments CK (test code = 8308225783) 48 U/L 33-194 Lab Interpretation (test code = Normal 84765-0) [facility] 12:37:18 Test Item Value Reference Range Interpretation Comments PHOSPHORUS (test code = 8992695262) 3.5 mg/dL 2.5-5.0 Lab Interpretation (test code = Normal 35145-2) [facility] [id number] 12:37:18 Test Item Value Reference Range Interpretation Comments CK (test code = 8677478051) 48 U/L 33-194 Lab Interpretation (test code = Normal 62464-6) [facility] 12:37:18 Test Item Value Reference Range Interpretation Comments PHOSPHORUS (test code = 9665549876) 3.5 mg/dL 2.5-5.0 Lab Interpretation (test code = Normal 70444-9) [facility] [id number] 12:37:18 Test Item Value Reference Range Interpretation Comments CK (test code = 3663327115) 48 U/L 33-194 Lab Interpretation (test code = Normal 63803-4) [facility] 12:37:18 Test Item Value Reference Range Interpretation Comments PHOSPHORUS (test code = 7346119039) 3.5 mg/dL 2.5-5.0 Lab Interpretation (test code = Normal 49525-5) [facility] [id number] 12:37:18 Test Item Value Reference Range Interpretation Comments CK (test code = 4851690053) 48 U/L 33-194 Lab Interpretation (test code = Normal 41507-4) [facility] TvixbzNJKCMWFGWL8027-81-94 12:37:18 Test Item Value Reference Range Interpretation Comments PHOSPHORUS (test code = 2485670915) 3.5 mg/dL 2.5-5.0 Lab Interpretation (test code = Normal 40437-7) [facility] [id number] 12:37:18 Test Item Value Reference Range Interpretation Comments CK (test code = 1367322221) 48 U/L 33-194 Lab Interpretation (test code = Normal 48021-4) [facility] 12:37:18 Test Item Value Reference Range Interpretation Comments PHOSPHORUS (test code = 5832247363) 3.5 mg/dL 2.5-5.0 Lab Interpretation (test code = Normal 74046-1) [facility] [id number] 12:37:18 Test Item Value Reference Range Interpretation Comments CK (test code = 0306965809) 48 U/L 33-194 Lab Interpretation (test code = Normal 18540-1) [facility] 12:37:18 Test Item Value Reference Range Interpretation Comments PHOSPHORUS (test code = 5096581777) 3.5 mg/dL 2.5-5.0 Lab Interpretation (test code = Normal 83580-3) [facility] [id number] 12:37:18 Test Item Value Reference Range Interpretation Comments CK (test code = 3595543071) 48 U/L 33-194 Lab Interpretation (test code = Normal 85956-9) [facility] 12:37:18 Test Item Value Reference Range Interpretation Comments PHOSPHORUS (test code = 6782079469) 3.5 mg/dL 2.5-5.0 Lab Interpretation (test code = Normal 09713-3) [facility] [id number] 12:37:18 Test Item Value Reference Range Interpretation Comments CK (test code = 5301896867) 48 U/L 33-194 Lab Interpretation (test code = Normal 36407-3) [facility] 12:37:18 Test Item Value Reference Range Interpretation Comments PHOSPHORUS (test code = 2000356025) 3.5 mg/dL 2.5-5.0 Lab Interpretation (test code = Normal 74511-0) [facility] [id number] 12:37:18 Test Item Value Reference Range Interpretation Comments CK (test code = 5473284333) 48 U/L 33-194 Lab Interpretation (test code = Normal 70927-7) [facility] 12:37:18 Test Item Value Reference Range Interpretation Comments PHOSPHORUS (test code = 8624315431) 3.5 mg/dL 2.5-5.0 Lab Interpretation (test code = Normal 91478-0) [facility] [id number] 12:37:18 Test Item Value Reference Range Interpretation Comments CK (test code = 0811859655) 48 U/L 33-194 Lab Interpretation (test code = Normal 12503-4) [facility] 12:37:18 Test Item Value Reference Range Interpretation Comments PHOSPHORUS (test code = 5440501922) 3.5 mg/dL 2.5-5.0 Lab Interpretation (test code = Normal 56843-8) [facility] [id number] 12:37:18 Test Item Value Reference Range Interpretation Comments CK (test code = 9401292540) 48 U/L 33-194 Lab Interpretation (test code = Normal 19165-9) [facility] 12:37:18 Test Item Value Reference Range Interpretation Comments PHOSPHORUS (test code = 7779643025) 3.5 mg/dL 2.5-5.0 Lab Interpretation (test code = Normal 44278-6) [facility] [id number] 12:37:18 Test Item Value Reference Range Interpretation Comments CK (test code = 8471404715) 48 U/L 33-194 Lab Interpretation (test code = Normal 58503-6) [facility] [id number] 12:36:18 Test Item Value Reference Range Interpretation Comments NT-proBNP (test code 93 pg/mL See_Comment [Autom ated = 5129391146) message] The system which generated this result transmitted reference range : <=125. The reference range was not used to interpret this result as normal/abnormal . SUNIL (test code = SUNIL) Biotin has been reported to cause a negative bias, interpret results relative to patient's use of biotin. Lab Interpretation Normal (test code = 74557-4) [facility] [id number] 12:36:18 Test Item Value Reference Range Interpretation Comments NT-proBNP (test code 93 pg/mL See_Comment [Autom ated = 1140866023) message] The system which generated this result transmitted reference range : <=125. The reference range was not used to interpret this result as normal/abnormal . SUNIL (test code = SUNIL) Biotin has been reported to cause a negative bias, interpret results relative to patient's use of biotin. Lab Interpretation Normal (test code = 24277-1) [facility] WITH [id number] 12:12:55 Test Item Value Reference Range Interpretation Comments WBC (test code = See_Comment [Automated 6690-2) message] The sy stem which generated this result transmitted reference range : 4.20 - 10.70 10*3/?L. The reference range was not used to interpret this result as normal/abnormal . RBC (test code = See_Comment L [Automated 789-8) message] The sy stem which generated this result transmitted reference range : 4.26 - 5.52 10*6/?L. The reference range was not used to interpret this result as normal/abnormal . HGB (test code = 10.0 g/dL 12.2-16.4 L 718-7) HCT (test code = 31.1 % 38.4-49.3 L 4544-3) MCV (test code = 76.6 fL 81.7-95.6 L 787-2) MCH (test code = 24.6 pg 26.1-32.7 L 785-6) MCHC (test code = 32.2 g/dL 31.2-35.0 786-4) RDW-SD (test code = 43.9 fL 38.5-51.6 40639-7) RDW-CV (test code = 15.8 % 12.1-15.4 H 788-0) PLT (test code = See_Comment [Automated 777-3) message] The sy stem which generated this result transmitted reference range : 150 - 328 10*3/ ?L. The reference r shashi was not used to interpret this result as normal/abnormal . MPV (test code = 9.5 fL 9.8-13.0 L 98821-1) NRBC/100 WBC (test See_Comment [Automat ed code = 2773599889) message] The system which generated this result transmitted reference range : 0.0 - 10.0 /100 WBCs. The refer ence range was not u sed to interpret th is result as normal/abnormal . NRBC x10^3 (test code See_Comment [Auto mated = 3996381071) message] The s ystem which generated this result transmitted reference range : 10*3/?L. The reference range was not used to interpret this result as normal/abnormal . GRAN MAT (NEUT) % 70.4 % (test code = 770-8) IMM GRAN % (test code 0.60 % = 5430595971) LYMPH % (test code = 20.0 % 736-9) MONO % (test code = 7.6 % 5905-5) EOS % (test code = 0.9 % 713-8) BASO % (test code = 0.5 % 706-2) GRAN MAT x10^3(ANC) 7.48 10*3/uL 1.99-6.95 H (test code = 1200065844) IMM GRAN x10^3 (test 0.06 10*3/uL 0.00-0.06 code = 2337578660) LYMPH x10^3 (test code 2.12 10*3/uL 1.09-3.23 = 731-0) MONO x10^3 (test code 0.81 10*3/uL 0.36-1.02 = 742-7) EOS x10^3 (test code = 0.10 10*3/uL 0.06-0.53 711-2) BASO x10^3 (test code 0.05 10*3/uL 0.01-0.09 = 704-7) Lab Interpretation Abnormal (test code = 05035-1) [facility] WITH [id number] 12:12:55 Test Item Value Reference Range Interpretation Comments WBC (test code = See_Comment [Automated 1090-2) message] The sy stem which generated this result transmitted reference range : 4.20 - 10.70 10*3/?L. The reference range was not used to interpret this result as normal/abnormal . RBC (test code = See_Comment L [Automated 559-8) message] The sy stem which generated this result transmitted reference range : 4.26 - 5.52 10*6/?L. The reference range was not used to interpret this result as normal/abnormal . HGB (test code = 10.0 g/dL 12.2-16.4 L 718-7) HCT (test code = 31.1 % 38.4-49.3 L 4544-3) MCV (test code = 76.6 fL 81.7-95.6 L 787-2) MCH (test code = 24.6 pg 26.1-32.7 L 785-6) MCHC (test code = 32.2 g/dL 31.2-35.0 786-4) RDW-SD (test code = 43.9 fL 38.5-51.6 72450-8) RDW-CV (test code = 15.8 % 12.1-15.4 H 788-0) PLT (test code = See_Comment [Automated 777-3) message] The sy stem which generated this result transmitted reference range : 150 - 328 10*3/ ?L. The reference r shashi was not used to interpret this result as normal/abnormal . MPV (test code = 9.5 fL 9.8-13.0 L 00972-5) NRBC/100 WBC (test See_Comment [Automat ed code = 8250516010) message] The system which generated this result transmitted reference range : 0.0 - 10.0 /100 WBCs. The refer ence range was not u sed to interpret th is result as normal/abnormal . NRBC x10^3 (test code See_Comment [Auto mated = 6422652402) message] The s ystem which generated this result transmitted reference range : 10*3/?L. The reference range was not used to interpret this result as normal/abnormal . GRAN MAT (NEUT) % 70.4 % (test code = 770-8) IMM GRAN % (test code 0.60 % = 8195477715) LYMPH % (test code = 20.0 % 736-9) MONO % (test code = 7.6 % 5905-5) EOS % (test code = 0.9 % 713-8) BASO % (test code = 0.5 % 706-2) GRAN MAT x10^3(ANC) 7.48 10*3/uL 1.99-6.95 H (test code = 0414314403) IMM GRAN x10^3 (test 0.06 10*3/uL 0.00-0.06 code = 0532847631) LYMPH x10^3 (test code 2.12 10*3/uL 1.09-3.23 = 731-0) MONO x10^3 (test code 0.81 10*3/uL 0.36-1.02 = 742-7) EOS x10^3 (test code = 0.10 10*3/uL 0.06-0.53 711-2) BASO x10^3 (test code 0.05 10*3/uL 0.01-0.09 = 704-7) Lab Interpretation Abnormal (test code = 10478-5) [facility] WITH [id number] 12:12:55 Test Item Value Reference Range Interpretation Comments WBC (test code = See_Comment [Automated 6690-2) message] The sy stem which generated this result transmitted reference range : 4.20 - 10.70 10*3/?L. The reference range was not used to interpret this result as normal/abnormal . RBC (test code = See_Comment L [Automated 789-8) message] The sy stem which generated this result transmitted reference range : 4.26 - 5.52 10*6/?L. The reference range was not used to interpret this result as normal/abnormal . HGB (test code = 10.0 g/dL 12.2-16.4 L 718-7) HCT (test code = 31.1 % 38.4-49.3 L 4544-3) MCV (test code = 76.6 fL 81.7-95.6 L 787-2) MCH (test code = 24.6 pg 26.1-32.7 L 785-6) MCHC (test code = 32.2 g/dL 31.2-35.0 786-4) RDW-SD (test code = 43.9 fL 38.5-51.6 54837-7) RDW-CV (test code = 15.8 % 12.1-15.4 H 788-0) PLT (test code = See_Comment [Automated 777-3) message] The sy stem which generated this result transmitted reference range : 150 - 328 10*3/ ?L. The reference r shashi was not used to interpret this result as normal/abnormal . MPV (test code = 9.5 fL 9.8-13.0 L 65008-4) NRBC/100 WBC (test See_Comment [Automat ed code = 6816997441) message] The system which generated this result transmitted reference range : 0.0 - 10.0 /100 WBCs. The refer ence range was not u sed to interpret th is result as normal/abnormal . NRBC x10^3 (test code See_Comment [Auto mated = 4119451667) message] The s ystem which generated this result transmitted reference range : 10*3/?L. The reference range was not used to interpret this result as normal/abnormal . GRAN MAT (NEUT) % 70.4 % (test code = 770-8) IMM GRAN % (test code 0.60 % = 8096994846) LYMPH % (test code = 20.0 % 736-9) MONO % (test code = 7.6 % 5905-5) EOS % (test code = 0.9 % 713-8) BASO % (test code = 0.5 % 706-2) GRAN MAT x10^3(ANC) 7.48 10*3/uL 1.99-6.95 H (test code = 6592386736) IMM GRAN x10^3 (test 0.06 10*3/uL 0.00-0.06 code = 3073241486) LYMPH x10^3 (test code 2.12 10*3/uL 1.09-3.23 = 731-0) MONO x10^3 (test code 0.81 10*3/uL 0.36-1.02 = 742-7) EOS x10^3 (test code = 0.10 10*3/uL 0.06-0.53 711-2) BASO x10^3 (test code 0.05 10*3/uL 0.01-0.09 = 704-7) Lab Interpretation Abnormal (test code = 08973-4) [facility] 08:28:57 Test Item Value Reference Range Interpretation Comments POCT GLU (test code = 7144990547) 114 mg/dL 70-110 H Lab Interpretation (test code = Abnormal 23681-5) [facility] [id number] 06:46:50 Test Item Value Reference Range Interpretation Comments TSH (test code = See_Comment [Automated message] 5299791085) The system [employer] generated this result transmitted ref erence range: 0.45 - 4 .70 mIU/L. The refe rence range was not u sed to interpret this result as normal/abnor mal. Lab Interpretation (test Normal code = 40624-3) [facility] [id number] 06:46:50 Test Item Value Reference Range Interpretation Comments TSH (test code = See_Comment [Automated message] [id number]) The system [employer] generated this result transmitted ref erence range: 0.45 - 4 .70 mIU/L. The refe rence range was not u sed to interpret this result as normal/abnor mal. Lab Interpretation (test Normal code = 73369-3) [facility] [id number] 06:46:50 Test Item Value Reference Range Interpretation Comments TSH (test code = See_Comment [Automated message] [id number]) The system [employer] generated this result transmitted ref erence range: 0.45 - 4 .70 mIU/L. The refe rence range was not u sed to interpret this result as normal/abnor mal. Lab Interpretation (test Normal code = 90149-6) [facility] [id number] 06:46:50 Test Item Value Reference Range Interpretation Comments TSH (test code = See_Comment [Automated message] [id number]) The system [employer] generated this result transmitted ref erence range: 0.45 - 4 .70 mIU/L. The refe rence range was not u sed to interpret this result as normal/abnor mal. Lab Interpretation (test Normal code = 53080-6) [facility] [id number] 06:46:50 Test Item Value Reference Range Interpretation Comments TSH (test code = 3.16 See_Comment [Automated message] [id number]) The system [employer] generated this result transmitted ref erence range: 0.45 - 4 .70 mIU/L. The refe rence range was not u sed to interpret this result as normal/abnor mal. Lab Interpretation (test Normal code = 02303-6) [facility] [id number] 06:46:50 Test Item Value Reference Range Interpretation Comments TSH (test code = 3.16 See_Comment [Automated message] [id number]) The system [employer] generated this result transmitted ref erence range: 0.45 - 4 .70 mIU/L. The refe rence range was not u sed to interpret this result as normal/abnor mal. Lab Interpretation (test Normal code = 40223-4) [facility] [id number] 06:46:50 Test Item Value Reference Range Interpretation Comments TSH (test code = 3.16 See_Comment [Automated message] [id number]) The system [employer] generated this result transmitted ref erence range: 0.45 - 4 .70 mIU/L. The refe rence range was not u sed to interpret this result as normal/abnor mal. Lab Interpretation (test Normal code = 53299-4) [facility] [id number] 06:46:50 Test Item Value Reference Range Interpretation Comments TSH (test code = 3.16 See_Comment [Automated message] [id number]) The system [employer] generated this result transmitted ref erence range: 0.45 - 4 .70 mIU/L. The refe rence range was not u sed to interpret this result as normal/abnor mal. Lab Interpretation (test Normal code = 18411-6) [facility] [id number] 06:46:50 Test Item Value Reference Range Interpretation Comments TSH (test code = 3.16 See_Comment [Automated message] [id number]) The system [employer] generated this result transmitted ref erence range: 0.45 - 4 .70 mIU/L. The refe rence range was not u sed to interpret this result as normal/abnor mal. Lab Interpretation (test Normal code = 42222-7) [facility] [id number] 06:46:50 Test Item Value Reference Range Interpretation Comments TSH (test code = 3.16 See_Comment [Automated message] [id number]) The system [employer] generated this result transmitted ref erence range: 0.45 - 4 .70 mIU/L. The refe rence range was not u sed to interpret this result as normal/abnor mal. Lab Interpretation (test Normal code = 95369-7) [facility] [id number] 06:46:50 Test Item Value Reference Range Interpretation Comments TSH (test code = 3.16 See_Comment [Automated message] [id number]) The system [employer] generated this result transmitted ref erence range: 0.45 - 4 .70 mIU/L. The refe rence range was not u sed to interpret this result as normal/abnor mal. Lab Interpretation (test Normal code = 55247-1) [facility] [id number] 06:46:50 Test Item Value Reference Range Interpretation Comments TSH (test code = 3.16 See_Comment [Automated message] [id number]) The system [employer] generated this result transmitted ref erence range: 0.45 - 4 .70 mIU/L. The refe rence range was not u sed to interpret this result as normal/abnor mal. Lab Interpretation (test Normal code = 11362-4) [facility] [id number] 06:46:50 Test Item Value Reference Range Interpretation Comments TSH (test code = 3.16 See_Comment [Automated message] [id number]) The system [employer] generated this result transmitted ref erence range: 0.45 - 4 .70 mIU/L. The refe rence range was not u sed to interpret this result as normal/abnor mal. Lab Interpretation (test Normal code = 31495-8) [facility] [id number] 06:46:50 Test Item Value Reference Range Interpretation Comments TSH (test code = 3.16 See_Comment [Automated message] [id number]) The system [employer] generated this result transmitted ref erence range: 0.45 - 4 .70 mIU/L. The refe rence range was not u sed to interpret this result as normal/abnor mal. Lab Interpretation (test Normal code = 24931-7) [facility] [id number] 06:46:50 Test Item Value Reference Range Interpretation Comments TSH (test code = 3.16 See_Comment [Automated message] [id number]) The system [employer] generated this result transmitted ref erence range: 0.45 - 4 .70 mIU/L. The refe rence range was not u sed to interpret this result as normal/abnor mal. Lab Interpretation (test Normal code = 62016-9) [facility] [id number] 06:46:50 Test Item Value Reference Range Interpretation Comments TSH (test code = 3.16 See_Comment [Automated message] [id number]) The system [employer] generated this result transmitted ref erence range: 0.45 - 4 .70 mIU/L. The refe rence range was not u sed to interpret this result as normal/abnor mal. Lab Interpretation (test Normal code = 32199-9) [facility] [id number] 06:46:50 Test Item Value Reference Range Interpretation Comments TSH (test code = 3.16 See_Comment [Automated message] [id number]) The system [employer] generated this result transmitted ref erence range: 0.45 - 4 .70 mIU/L. The refe rence range was not u sed to interpret this result as normal/abnor mal. Lab Interpretation (test Normal code = 67254-0) [facility] [id number] 06:46:50 Test Item Value Reference Range Interpretation Comments TSH (test code = 3.16 See_Comment [Automated message] [id number]) The system [employer] generated this result transmitted ref erence range: 0.45 - 4 .70 mIU/L. The refe rence range was not u sed to interpret this result as normal/abnor mal. Lab Interpretation (test Normal code = 43673-2) [id number] Test Item Value Reference Interpretation Comments Range TROPONIN I (test 0.008 ng/mL See_Comment [Automated code = [id number]) message] The system which generated this result [...] biotin. Lab Interpretation Normal (test code = 17969-5) [id number]TOTAL CHOLESTEROL, TRIGLYCERIDES, HDL)2022-06-18 06:15:52 Test Item Value Reference Range Interpretation Comments CHOL (test code = 165 mg/dL 120-200 [id number]) HDL (test code = 42 mg/dL See_Comment [Automated message] [id number]) The system [employer] generated this result transmit vale reference range : >=40. The refer ence range was not u sed to interpret th is result as normal/abnormal . HDLC RATIO (test code = See_Comment [Au tomated message] [id number]) The system [employer] generated this result transmit vale reference range : <=5.0. The refe rence range was not u sed to interpret th is result as normal/abnormal . TRIG (test code = 206 mg/dL 30-170 H [id number]) LDL CHOL (test code = 82 mg/dL See_Comment [Auto mated message] 76928-9) The system [employer] generated this result transmit vale reference range : <=160. The refe rence range was not u sed to interpret th is result as normal/abnormal . VLDL (test code = 41 mg/dL 5-60 [id number]) Lab Interpretation (test Abnormal code = 11001-7) [facility][id number])(TOTAL CHOLESTEROL, TRIGLYCERIDES, HDL)2022-06-18 06:15:52 Test Item Value Reference Range Interpretation Comments CHOL (test code = 165 mg/dL 120-200 [id number]) HDL (test code = 42 mg/dL See_Comment [Automated message] [id number]) The system [employer] generated this result transmit vale reference range : >=40. The refer ence range was not u sed to interpret th is result as normal/abnormal . HDLC RATIO (test code = See_Comment [Au tomated message] [id number]) The system [employer] generated this result transmit vale reference range : <=5.0. The refe rence range was not u sed to interpret th is result as normal/abnormal . TRIG (test code = 206 mg/dL 30-170 H [id number]) LDL CHOL (test code = 82 mg/dL See_Comment [Auto mated message] 22198-4) The system [employer] generated this result transmit vale reference range : <=160. The refe rence range was not u sed to interpret th is result as normal/abnormal . VLDL (test code = 41 mg/dL 5-60 [id number]) Lab Interpretation (test Abnormal code = 81232-9) [facility][id number])(TOTAL CHOLESTEROL, TRIGLYCERIDES, HDL)2022-06-18 06:15:52 Test Item Value Reference Range Interpretation Comments CHOL (test code = 165 mg/dL 120-200 [id number]) HDL (test code = 42 mg/dL See_Comment [Automated message] [id number]) The system [employer] generated this result transmit vale reference range : >=40. The refer ence range was not u sed to interpret th is result as normal/abnormal . HDLC RATIO (test code = See_Comment [Au tomated message] [id number]) The system [employer] generated this result transmit vale reference range : <=5.0. The refe rence range was not u sed to interpret th is result as normal/abnormal . TRIG (test code = 206 mg/dL 30-170 H [id number]) LDL CHOL (test code = 82 mg/dL See_Comment [Auto mated message] 90362-3) The system [employer] generated this result transmit vale reference range : <=160. The refe rence range was not u sed to interpret th is result as normal/abnormal . VLDL (test code = 41 mg/dL 5-60 [id number]) Lab Interpretation (test Abnormal code = 02194-1) [facility] ([id number])(TOTAL CHOLESTEROL, TRIGLYCERIDES, HDL)2022-06-18 06:15:52 Test Item Value Reference Range Interpretation Comments CHOL (test code = 165 mg/dL 120-200 [id number]) HDL (test code = 42 mg/dL See_Comment [Automated message] 4359163730) The system [employer] generated this result transmit vale reference range : >=40. The refer ence range was not u sed to interpret th is result as normal/abnormal . HDLC RATIO (test code = See_Comment [Au tomated message] 2607844093) The system [employer] generated this result transmit vale reference range : <=5.0. The refe rence range was not u sed to interpret th is result as normal/abnormal . TRIG (test code = 206 mg/dL 30-170 H [id number]) LDL CHOL (test code = 82 mg/dL See_Comment [Auto mated message] 47149-6) The system [employer] generated this result transmit vale reference range : <=160. The refe rence range was not u sed to interpret th is result as normal/abnormal . VLDL (test code = 41 mg/dL 5-60 [id number]) Lab Interpretation (test Abnormal code = 79917-3) [facility]08496)(TOTAL CHOLESTEROL, TRIGLYCERIDES, HDL)2022-06-18 06:15:52 Test Item Value Reference Range Interpretation Comments CHOL (test code = 165 mg/dL 120-200 [id number]) HDL (test code = 42 mg/dL See_Comment [Automated message] [id number]) The system [employer] generated this result transmit vale reference range : >=40. The refer ence range was not u sed to interpret th is result as normal/abnormal . HDLC RATIO (test code = 3.9 See_Comment [Au tomated message] 7239348665) The system [employer] generated this result transmit vale reference range : <=5.0. The refe rence range was not u sed to interpret th is result as normal/abnormal . TRIG (test code = 206 mg/dL 30-170 H [id number]) LDL CHOL (test code = 82 mg/dL See_Comment [Auto mated message] 83830-3) The system [employer] generated this result transmit vale reference range : <=160. The refe rence range was not u sed to interpret th is result as normal/abnormal . VLDL (test code = 41 mg/dL 5-60 3882418893) Lab Interpretation (test Abnormal code = 09921-8) [facility]TOTAL CHOLESTEROL, TRIGLYCERIDES, HDL)2022-06-18 06:15:52 Test Item Value Reference Range Interpretation Comments CHOL (test code = 165 mg/dL 120-200 [id number]) HDL (test code = 42 mg/dL See_Comment [Automated message] 8858177615) The system [employer] generated this result transmit vale reference range : >=40. The refer ence range was not u sed to interpret th is result as normal/abnormal . HDLC RATIO (test code = 3.9 See_Comment [Au tomated message] 5785030301) The system [employer] generated this result transmit vale reference range : <=5.0. The refe rence range was not u sed to interpret th is result as normal/abnormal . TRIG (test code = 206 mg/dL 30-170 H 8633975203) LDL CHOL (test code = 82 mg/dL See_Comment [Auto mated message] 84976-0) The system [employer] generated this result transmit vale reference range : <=160. The refe rence range was not u sed to interpret th is result as normal/abnormal . VLDL (test code = 41 mg/dL 5-60 9134934954) Lab Interpretation (test Abnormal code = 30375-7) [facility]28295)(TOTAL CHOLESTEROL, TRIGLYCERIDES, HDL)2022-06-18 06:15:52 Test Item Value Reference Range Interpretation Comments CHOL (test code = 0612564671) 165 mg/dL 120-200 HDL (test code = 4808653100) 42 mg/dL >=40 HDLC RATIO (test code = 4563426247) 3.9 <=5.0 TRIG (test code = 7727434791) 206 mg/dL 30-170 H LDL CHOL (test code = 27570-4) 82 mg/dL <=160 VLDL (test code = 1818151025) 41 mg/dL 5-60 Lab Interpretation (test code = Abnormal 12775-3) [facility]67508)(TOTAL CHOLESTEROL, TRIGLYCERIDES, HDL)2022-06-18 06:15:52 Test Item Value Reference Range Interpretation Comments CHOL (test code = 3072314520) 165 mg/dL 120-200 HDL (test code = 7301316719) 42 mg/dL >=40 HDLC RATIO (test code = 0938727293) 3.9 <=5.0 TRIG (test code = 8160900757) 206 mg/dL 30-170 H LDL CHOL (test code = 71912-7) 82 mg/dL <=160 VLDL (test code = 7173385799) 41 mg/dL 5-60 Lab Interpretation (test code = Abnormal 50952-5) [facility]50451)(TOTAL CHOLESTEROL, TRIGLYCERIDES, HDL)2022-06-18 06:15:52 Test Item Value Reference Range Interpretation Comments CHOL (test code = 0738853984) 165 mg/dL 120-200 HDL (test code = 5613614799) 42 mg/dL >=40 HDLC RATIO (test code = 9171941833) 3.9 <=5.0 TRIG (test code = 8509001074) 206 mg/dL 30-170 H LDL CHOL (test code = 89575-2) 82 mg/dL <=160 VLDL (test code = 8432899161) 41 mg/dL 5-60 Lab Interpretation (test code = Abnormal 93412-3) [facility] (56224)(TOTAL CHOLESTEROL, TRIGLYCERIDES, HDL)2022-06-18 06:15:52 Test Item Value Reference Range Interpretation Comments CHOL (test code = 9641021455) 165 mg/dL 120-200 HDL (test code = 8677036087) 42 mg/dL >=40 HDLC RATIO (test code = 6850674148) 3.9 <=5.0 TRIG (test code = 2855000061) 206 mg/dL 30-170 H LDL CHOL (test code = 37736-4) 82 mg/dL <=160 VLDL (test code = 6372543514) 41 mg/dL 5-60 Lab Interpretation (test code = Abnormal 71617-8) [facility] (70634)(TOTAL CHOLESTEROL, TRIGLYCERIDES, HDL)2022-06-18 06:15:52 Test Item Value Reference Range Interpretation Comments CHOL (test code = 8342853234) 165 mg/dL 120-200 HDL (test code = 6629995733) 42 mg/dL >=40 HDLC RATIO (test code = 4292930109) 3.9 <=5.0 TRIG (test code = 0737482754) 206 mg/dL 30-170 H LDL CHOL (test code = 67113-9) 82 mg/dL <=160 VLDL (test code = 5646727227) 41 mg/dL 5-60 Lab Interpretation (test code = Abnormal 38979-9) [facility]28148)(TOTAL CHOLESTEROL, TRIGLYCERIDES, HDL)2022-06-18 06:15:52 Test Item Value Reference Range Interpretation Comments CHOL (test code = 4947135440) 165 mg/dL 120-200 HDL (test code = 8989174569) 42 mg/dL >=40 HDLC RATIO (test code = 7758611376) 3.9 <=5.0 TRIG (test code = 7476327266) 206 mg/dL 30-170 H LDL CHOL (test code = 69199-4) 82 mg/dL <=160 VLDL (test code = 0513190762) 41 mg/dL 5-60 Lab Interpretation (test code = Abnormal 49297-9) [facility] (95150)(TOTAL CHOLESTEROL, TRIGLYCERIDES, HDL)2022-06-18 06:15:52 Test Item Value Reference Range Interpretation Comments CHOL (test code = 4664928859) 165 mg/dL 120-200 HDL (test code = 1410073612) 42 mg/dL >=40 HDLC RATIO (test code = 9628604923) 3.9 <=5.0 TRIG (test code = 2423922012) 206 mg/dL 30-170 H LDL CHOL (test code = 69390-1) 82 mg/dL <=160 VLDL (test code = 6767228008) 41 mg/dL 5-60 Lab Interpretation (test code = Abnormal 90690-7) [facility] (99975)(TOTAL CHOLESTEROL, TRIGLYCERIDES, HDL)2022-06-18 06:15:52 Test Item Value Reference Range Interpretation Comments CHOL (test code = 4880473625) 165 mg/dL 120-200 HDL (test code = 8263660074) 42 mg/dL >=40 HDLC RATIO (test code = 4619419483) 3.9 <=5.0 TRIG (test code = 5067979354) 206 mg/dL 30-170 H LDL CHOL (test code = 40136-7) 82 mg/dL <=160 VLDL (test code = 6450784062) 41 mg/dL 5-60 Lab Interpretation (test code = Abnormal 67603-9) [facility] (73117)(TOTAL CHOLESTEROL, TRIGLYCERIDES, HDL)2022-06-18 06:15:52 Test Item Value Reference Range Interpretation Comments CHOL (test code = 9545409298) 165 mg/dL 120-200 HDL (test code = 5101999572) 42 mg/dL >=40 HDLC RATIO (test code = 6626239760) 3.9 <=5.0 TRIG (test code = 7376172760) 206 mg/dL 30-170 H LDL CHOL (test code = 54997-3) 82 mg/dL <=160 VLDL (test code = 0559195700) 41 mg/dL 5-60 Lab Interpretation (test code = Abnormal 71342-2) [facility] (13881)(TOTAL CHOLESTEROL, TRIGLYCERIDES, HDL)2022-06-18 06:15:52 Test Item Value Reference Range Interpretation Comments CHOL (test code = 7110364992) 165 mg/dL 120-200 HDL (test code = 8819022090) 42 mg/dL >=40 HDLC RATIO (test code = 8097233922) 3.9 <=5.0 TRIG (test code = 4738657525) 206 mg/dL 30-170 H LDL CHOL (test code = 46161-3) 82 mg/dL <=160 VLDL (test code = 5091921869) 41 mg/dL 5-60 Lab Interpretation (test code = Abnormal 98024-0) [facility] (17325)(TOTAL CHOLESTEROL, TRIGLYCERIDES, HDL)2022-06-18 06:15:52 Test Item Value Reference Range Interpretation Comments CHOL (test code = 7598085338) 165 mg/dL 120-200 HDL (test code = 5631497722) 42 mg/dL >=40 HDLC RATIO (test code = 1465730786) 3.9 <=5.0 TRIG (test code = 3810403924) 206 mg/dL 30-170 H LDL CHOL (test code = 27898-0) 82 mg/dL <=160 VLDL (test code = 2395231994) 41 mg/dL 5-60 Lab Interpretation (test code = Abnormal 82930-8) [facility] (11563)(TOTAL CHOLESTEROL, TRIGLYCERIDES, HDL)2022-06-18 06:15:52 Test Item Value Reference Range Interpretation Comments CHOL (test code = 8004229027) 165 mg/dL 120-200 HDL (test code = 9550869550) 42 mg/dL >=40 HDLC RATIO (test code = 1210410988) 3.9 <=5.0 TRIG (test code = 4174556647) 206 mg/dL 30-170 H LDL CHOL (test code = 66682-6) 82 mg/dL <=160 VLDL (test code = 7558355307) 41 mg/dL 5-60 Lab Interpretation (test code = Abnormal 66703-9) [facility] [id number] 06:15:31 Test Item Value Reference Range Interpretation Comments URIC ACID (test code = 6954745875) 3.9 mg/dL 3.6-8.0 Lab Interpretation (test code = Normal 63349-4) [facility] [id number] 06:15:31 Test Item Value Reference Range Interpretation Comments URIC ACID (test code = 0367907274) 3.9 mg/dL 3.6-8.0 Lab Interpretation (test code = Normal 29729-3) [facility] [id number] 06:15:31 Test Item Value Reference Range Interpretation Comments URIC ACID (test code = 4256113174) 3.9 mg/dL 3.6-8.0 Lab Interpretation (test code = Normal 54061-6) [facility] [id number] 06:15:31 Test Item Value Reference Range Interpretation Comments URIC ACID (test code = 0325077974) 3.9 mg/dL 3.6-8.0 Lab Interpretation (test code = Normal 28909-5) [facility] [id number] 06:15:31 Test Item Value Reference Range Interpretation Comments URIC ACID (test code = 0883930726) 3.9 mg/dL 3.6-8.0 Lab Interpretation (test code = Normal 52675-5) [facility] [id number] 06:15:31 Test Item Value Reference Range Interpretation Comments URIC ACID (test code = 0327956185) 3.9 mg/dL 3.6-8.0 Lab Interpretation (test code = Normal 51512-7) [facility] [id number] 06:15:31 Test Item Value Reference Range Interpretation Comments URIC ACID (test code = 4158149930) 3.9 mg/dL 3.6-8.0 Lab Interpretation (test code = Normal 36026-2) [facility] [id number] 06:15:31 Test Item Value Reference Range Interpretation Comments URIC ACID (test code = 2772447133) 3.9 mg/dL 3.6-8.0 Lab Interpretation (test code = Normal 80329-4) [facility] [id number] 06:15:31 Test Item Value Reference Range Interpretation Comments URIC ACID (test code = 4365910373) 3.9 mg/dL 3.6-8.0 Lab Interpretation (test code = Normal 78807-1) [facility] [id number] 06:15:31 Test Item Value Reference Range Interpretation Comments URIC ACID (test code = 5161797763) 3.9 mg/dL 3.6-8.0 Lab Interpretation (test code = Normal 59935-6) [facility] [id number] 06:15:31 Test Item Value Reference Range Interpretation Comments URIC ACID (test code = 6846544395) 3.9 mg/dL 3.6-8.0 Lab Interpretation (test code = Normal 11795-8) [facility] [id number] 06:15:31 Test Item Value Reference Range Interpretation Comments URIC ACID (test code = 5199529973) 3.9 mg/dL 3.6-8.0 Lab Interpretation (test code = Normal 17360-3) [facility] [id number] 06:15:31 Test Item Value Reference Range Interpretation Comments URIC ACID (test code = 7691030857) 3.9 mg/dL 3.6-8.0 Lab Interpretation (test code = Normal 73462-0) [facility] [id number] 06:15:31 Test Item Value Reference Range Interpretation Comments URIC ACID (test code = 2472624190) 3.9 mg/dL 3.6-8.0 Lab Interpretation (test code = Normal 68026-6) [facility] [id number] 06:15:31 Test Item Value Reference Range Interpretation Comments URIC ACID (test code = 3984044086) 3.9 mg/dL 3.6-8.0 Lab Interpretation (test code = Normal 15450-8) [facility] [id number] 06:15:31 Test Item Value Reference Range Interpretation Comments URIC ACID (test code = 9989920298) 3.9 mg/dL 3.6-8.0 Lab Interpretation (test code = Normal 47529-1) [facility] [id number] 06:15:31 Test Item Value Reference Range Interpretation Comments URIC ACID (test code = 4020911071) 3.9 mg/dL 3.6-8.0 Lab Interpretation (test code = Normal 98862-8) [facility] [id number] 06:15:31 Test Item Value Reference Range Interpretation Comments URIC ACID (test code = 7075354223) 3.9 mg/dL 3.6-8.0 Lab Interpretation (test code = Normal 07520-0) [facility] [id number] 06:15:11 Test Item Value Reference Range Interpretation Comments CK (test code = 8429403063) 57 U/L 33-194 Lab Interpretation (test code = Normal 66220-9) [facility] (A1C)2022-06-18 06:10:45 Test Item Value Reference Range Interpretation Comments HGB A1C (test code = 5.6 % 4.0-5.7 4548-4) SUNIL (test code = SUNIL) Reference RangesNormal: <5.7%Prediabetes: 5.7 - 6.4%Diabetes: > 6.5% Lab Interpretation (test Normal code = 99476-0) [facility] 06:10:45 Test Item Value Reference Range Interpretation Comments HGB A1C (test code = 5.6 % 4.0-5.7 4548-4) SUNIL (test code = SUNIL) Reference RangesNormal: <5.7%Prediabetes: 5.7 - 6.4%Diabetes: > 6.5% Lab Interpretation (test Normal code = 11168-9) [facility]2022-06-18 06:10:45 Test Item Value Reference Range Interpretation Comments HGB A1C (test code = 5.6 % 4.0-5.7 4548-4) SUNIL (test code = SUNIL) Reference RangesNormal: <5.7%Prediabetes: 5.7 - 6.4%Diabetes: > 6.5% Lab Interpretation (test Normal code = 24212-6) [facility]2022-06-18 06:10:45 Test Item Value Reference Range Interpretation Comments HGB A1C (test code = 5.6 % 4.0-5.7 4548-4) SUNIL (test code = SUNIL) Reference RangesNormal: <5.7%Prediabetes: 5.7 - 6.4%Diabetes: > 6.5% Lab Interpretation (test Normal code = 00710-4) [facility]2022-06-18 06:10:45 Test Item Value Reference Range Interpretation Comments HGB A1C (test code = 5.6 % 4.0-5.7 4548-4) SUNIL (test code = SUNIL) Reference RangesNormal: <5.7%Prediabetes: 5.7 - 6.4%Diabetes: > 6.5% Lab Interpretation (test Normal code = 96525-2) [facility]2022-06-18 06:10:45 Test Item Value Reference Range Interpretation Comments HGB A1C (test code = 5.6 % 4.0-5.7 4548-4) SUNIL (test code = SUNIL) Reference RangesNormal: <5.7%Prediabetes: 5.7 - 6.4%Diabetes: > 6.5% Lab Interpretation (test Normal code = 77527-1) [facility]2022-06-18 06:10:45 Test Item Value Reference Range Interpretation Comments HGB A1C (test code = 5.6 % 4.0-5.7 4548-4) SUNIL (test code = SUNIL) Reference RangesNormal: <5.7%Prediabetes: 5.7 - 6.4%Diabetes: > 6.5% Lab Interpretation (test Normal code = 59685-9) [facility]2022-06-18 06:10:45 Test Item Value Reference Range Interpretation Comments HGB A1C (test code = 5.6 % 4.0-5.7 4548-4) SUNIL (test code = SUNIL) Reference RangesNormal: <5.7%Prediabetes: 5.7 - 6.4%Diabetes: > 6.5% Lab Interpretation (test Normal code = 30017-0) [facility]2022-06-18 06:10:45 Test Item Value Reference Range Interpretation Comments HGB A1C (test code = 5.6 % 4.0-5.7 4548-4) SUINL (test code = SUNIL) Reference RangesNormal: <5.7%Prediabetes: 5.7 - 6.4%Diabetes: > 6.5% Lab Interpretation (test Normal code = 05610-1) [facility]2022-06-18 06:10:45 Test Item Value Reference Range Interpretation Comments HGB A1C (test code = 5.6 % 4.0-5.7 4548-4) SUNIL (test code = SUNIL) Reference RangesNormal: <5.7%Prediabetes: 5.7 - 6.4%Diabetes: > 6.5% Lab Interpretation (test Normal code = 67693-1) [facility]2022-06-18 06:10:45 Test Item Value Reference Range Interpretation Comments HGB A1C (test code = 5.6 % 4.0-5.7 4548-4) SUNIL (test code = SUNIL) Reference RangesNormal: <5.7%Prediabetes: 5.7 - 6.4%Diabetes: > 6.5% Lab Interpretation (test Normal code = 16136-6) [facility]2022-06-18 06:10:45 Test Item Value Reference Range Interpretation Comments HGB A1C (test code = 5.6 % 4.0-5.7 4548-4) SUNIL (test code = SUNIL) Reference RangesNormal: <5.7%Prediabetes: 5.7 - 6.4%Diabetes: > 6.5% Lab Interpretation (test Normal code = 96689-4) [facility]2022-06-18 06:10:45 Test Item Value Reference Range Interpretation Comments HGB A1C (test code = 5.6 % 4.0-5.7 4548-4) SUNIL (test code = SUNIL) Reference RangesNormal: <5.7%Prediabetes: 5.7 - 6.4%Diabetes: > 6.5% Lab Interpretation (test Normal code = 48673-4) [facility]2022-06-18 06:10:45 Test Item Value Reference Range Interpretation Comments HGB A1C (test code = 5.6 % 4.0-5.7 4548-4) SUNIL (test code = SUNIL) Reference RangesNormal: <5.7%Prediabetes: 5.7 - 6.4%Diabetes: > 6.5% Lab Interpretation (test Normal code = 88890-7) [facility]2022-06-18 06:10:45 Test Item Value Reference Range Interpretation Comments HGB A1C (test code = 5.6 % 4.0-5.7 4548-4) SUNIL (test code = SUNIL) Reference RangesNormal: <5.7%Prediabetes: 5.7 - 6.4%Diabetes: > 6.5% Lab Interpretation (test Normal code = 84971-6) [facility]2022-06-18 06:10:45 Test Item Value Reference Range Interpretation Comments HGB A1C (test code = 5.6 % 4.0-5.7 4548-4) SUNIL (test code = SUNIL) Reference RangesNormal: <5.7%Prediabetes: 5.7 - 6.4%Diabetes: > 6.5% Lab Interpretation (test Normal code = 67011-4) [facility]2022-06-18 06:10:45 Test Item Value Reference Range Interpretation Comments HGB A1C (test code = 5.6 % 4.0-5.7 4548-4) SUNIL (test code = SUNIL) Reference RangesNormal: <5.7%Prediabetes: 5.7 - 6.4%Diabetes: > 6.5% Lab Interpretation (test Normal code = 08064-3) [facility]2022-06-18 06:10:45 Test Item Value Reference Range Interpretation Comments HGB A1C (test code = 5.6 % 4.0-5.7 4548-4) SUNIL (test code = SUNIL) Reference RangesNormal: <5.7%Prediabetes: 5.7 - 6.4%Diabetes: > 6.5% Lab Interpretation (test Normal code = 38396-0) [facility]18 05:50:50 Test Item Value Reference Range Interpretation Comments POCT GLU (test code = 3724443153) 195 mg/dL 70-110 H Lab Interpretation (test code = Abnormal 49840-1) [facility] [id number] 01:27:21 Test Item Value Reference Interpretation Comments Range TROPONIN I (test 0.006 ng/mL See_Comment [Automated code = 5698902892) message] The system which generated this result [...] biotin. Lab Interpretation Normal (test code = 41575-9) [facility] [id number] 01:24:00 Test Item Value Reference Range Interpretation Comments NT-proBNP (test code 106 pg/mL See_Comment [Autom ated = 0996725957) message] The system which generated this result transmitted reference range : <=125. The reference range was not used to interpret this result as normal/abnormal . SUNIL (test code = SUNIL) Biotin has been reported to cause a negative bias, interpret results relative to patient's use of biotin. Lab Interpretation Normal (test code = 39802-8) [facility]. METABOLIC PANEL (45272)2022-06-18 01:15:19 Test Item Value Reference Range Interpretation Comments NA (test code = 139 mmol/L 135-145 3019944982) K (test code = 3.0 mmol/L 3.5-5.0 L 1066929311) CL (test code = 99 mmol/L 98-108 4013766727) CO2 TOTAL (test code = 32 mmol/L 23-31 H 7210548968) AGAP (test code = 2-16 5941362585) BUN (test code = 21 mg/dL 7-23 3369926604) GLUCOSE (test code = 146 mg/dL 70-110 H 1807228745) CREATININE (test code = 1.49 mg/dL 0.60-1.25 H 9230532593) TOTAL BILI (test code = 0.5 mg/dL 0.1-1.3 2432045915) CALCIUM (test code = 8.6 mg/dL 8.6-10.6 4339532836) T PROTEIN (test code = 6.7 g/dL 6.3-8.2 8554615613) ALBUMIN (test code = 3.7 g/dL 3.5-5.0 2044486836) ALK PHOS (test code = 133 U/L 34-122 H 1225399586) ALTv (test code = 27 U/L 5-50 1742-6) AST(SGOT) (test code = 28 U/L 13-40 0047296225) eGFR (test code = mL/min/1.73m2 8612306817) SUNIL (test code = SUNIL) Association of [...] tests). Lab Interpretation Abnormal (test code = 57403-2) [facility] WITH [id number] 01:00:41 Test Item Value Reference Range Interpretation Comments WBC (test code = See_Comment H [Automated 1323-2) message] The sy stem which generated this result transmitted reference range : 4.20 - 10.70 10*3/?L. The reference range was not used to interpret this result as normal/abnormal . RBC (test code = See_Comment [Automated 225-8) message] The sy stem which generated this result transmitted reference range : 4.26 - 5.52 10*6/?L. The reference range was not used to interpret this result as normal/abnormal . HGB (test code = 10.9 g/dL 12.2-16.4 L 718-7) HCT (test code = 33.8 % 38.4-49.3 L 4544-3) MCV (test code = 76.1 fL 81.7-95.6 L 787-2) MCH (test code = 24.5 pg 26.1-32.7 L 785-6) MCHC (test code = 32.2 g/dL 31.2-35.0 786-4) RDW-SD (test code = 43.1 fL 38.5-51.6 47503-4) RDW-CV (test code = 15.7 % 12.1-15.4 H 788-0) PLT (test code = See_Comment [Automated 777-3) message] The sy stem which generated this result transmitted reference range : 150 - 328 10*3/ ?L. The reference r shashi was not used to interpret this result as normal/abnormal . MPV (test code = 9.0 fL 9.8-13.0 L 40180-9) NRBC/100 WBC (test See_Comment [Automat ed code = 9114855685) message] The system which generated this result transmitted reference range : 0.0 - 10.0 /100 WBCs. The refer ence range was not u sed to interpret th is result as normal/abnormal . NRBC x10^3 (test code See_Comment [Auto mated = 1169322246) message] The s ystem which generated this result transmitted reference range : 10*3/?L. The reference range was not used to interpret this result as normal/abnormal . GRAN MAT (NEUT) % 75.7 % (test code = 770-8) IMM GRAN % (test code 0.40 % = 8220193982) LYMPH % (test code = 16.5 % 736-9) MONO % (test code = 6.2 % 5905-5) EOS % (test code = 0.8 % 713-8) BASO % (test code = 0.4 % 706-2) GRAN MAT x10^3(ANC) 8.65 10*3/uL 1.99-6.95 H (test code = 6165108384) IMM GRAN x10^3 (test 0.05 10*3/uL 0.00-0.06 code = 0687460290) LYMPH x10^3 (test code 1.89 10*3/uL 1.09-3.23 = 731-0) MONO x10^3 (test code 0.71 10*3/uL 0.36-1.02 = 742-7) EOS x10^3 (test code = 0.09 10*3/uL 0.06-0.53 711-2) BASO x10^3 (test code 0.05 10*3/uL 0.01-0.09 = 704-7) Lab Interpretation Abnormal (test code = 85094-9) [facility] HEMOGLOBIN A1C [id number] 15:03:00 Test Item Value Reference Range Interpretation Comments POCT HBA1C (test code = 4548-4) 5.4 % 4-6 [facility] HEMOGLOBIN A1C [id number] 15:03:00 Test Item Value Reference Range Interpretation Comments POCT HBA1C (test code = 4548-4) 5.4 % 4-6 [facility] HEMOGLOBIN A1C [id number] 15:03:00 Test Item Value Reference Range Interpretation Comments POCT HBA1C (test code = 4548-4) 5.4 % 4-6 [facility] HEMOGLOBIN A1C [id number] 15:03:00 Test Item Value Reference Range Interpretation Comments POCT HBA1C (test code = 4548-4) 5.4 % 4-6 [facility] HEMOGLOBIN A1C [id number] 15:03:00 Test Item Value Reference Range Interpretation Comments POCT HBA1C (test code = 4548-4) 5.4 % 4-6 [facility] HEMOGLOBIN A1C [id number] 15:03:00 Test Item Value Reference Range Interpretation Comments POCT HBA1C (test code = 4548-4) 5.4 % 4-6 [facility] HEMOGLOBIN A1C [id number] 15:03:00 Test Item Value Reference Range Interpretation Comments POCT HBA1C (test code = 4548-4) 5.4 % 4-6 [facility] [id number] 12:28:00 Test Item Value Reference Range Interpretation Comments PROTHROMBIN TIME 17.8 SECONDS 9.3-12.9 H PATIENT (test code = PTP) INTERNATIONAL NORMAL 1.6 0.8-1.2 H TARGET INR BY RATIO (test code = INDICATIO N Indication INR) INR1. Prophylax is of venous thrombos is 2.0 - 3.0 (orthoped ic surgery), Proph ylaxis of venous throm bosis (other than hig h-risk surgery), Treat ment of Deep Vein Thrombosis/Pulm onary Embolism, Preve ntion of systemic emb olism - Tissue heart va lves, Acute Myocardia l Infarction (to prevent systemic emboli sm), Valvular heart disease, Atrial Fibrillation, Bileaflet mecha nical valve in aortic position.2. Mec hanical prosthetic valv es (high risk), 2. 5 - 3.5 Presence of Lup us Anticoagulant o r Antiphospholipi d Antibodies, Pre vention of systemic emb olism - Acute Myocardia l Infarction (to prevent recurrent infar ct). THROMBOPLASTIN TIME 42.6 Seconds 25.0-39.5 H Therape utic Range: PARTIAL (test code = 61.8-83 .8 [...] : 1.05 Edited by: INFC Leatha on 07/06/18:471100 1510: SILICA CL HELENA previously repo rted as: 1.05 ARTERIAL THROMBOPHILIA [id number] 12:28:00 Test Item Value Reference Interpretation Comments Range PROTHROMBIN 3 NO MUTATION () PROTHROMBIN (F ACTOR II) UNTRANSLATED DETECTED 02570Q>A MUTATI ON (test code = INTERPRETATION: This VB0NSED) individual is n egative (normal) for th e [id number] in the Prothrombin/Fac tor II gene. Increased risko f thrombophilia c an be caused by a variety of genetic andnon-genetic factors not screened for th is assay. Laboratory test ing supervised and results guerrero Knox, Ph.D., DABMG, H CLD, CGMB. MUTATION ANALYS IS:The A51888A mutation [WL558706.1:g.2 1538G>A (c.*97G>A)] int he Prothrombin/Fac tor II gene is the second most commoninherited risk factor for thrombosis occuring inapproximately 2% of Caucasians. Pre sence of the mutation isasso ciated with an elevation of pr othrombin levels to about 30% above normal in heter ozygotes and 70% above olivia l inhomozygotes. The S24512Q mutation is det ected bypolymerase ch ain [...] performancechar acteristics have been deter mined by [facility]. It has not beencleared or approved by the FDA. Thi s assay has beenvalidated p ursuant to the CLIA regulation s and is used forclinical pur poses. Health care providers, please contact your [facility] [employer] ' genetic counselor or [facility] [phone]( [phone]) for assistance with interpretation of theseresults. P erformed by: [facility]/Kirstie [facility] [address] ACTIVATED PROT C 3.09 RATIO 2.31-5.00 Ratios [...] supervised and results guerrero Cardoza , Ph.D., [facility]. MU TATION ANALYSIS:The Fa ctor v Leiden (R560Q) mutatio n [NM 224474.2: c.160 1G>A(p.R534Q)] in the Factor V gene [...] performancechar acteristics have been deter mined by [facility]. It has not beencleared or approved by the FDA. Thi s assay has beenvalidated p ursuant to the CLIA regulation s and is used forclinical pur poses. Health care providers, please contact your [facility] [employer] ' genetic counselor or [facility] [phone]( [phone]) for assistance with interpretation of theseresults. P erformed by: [facility] alejandra/Kirstie [facility] [address] PROTEIN S FREE 56 % 68-126 L [...] in cluded into the APS criteri a. FRSE-0-UAZVW I 0.8 SMU 0.0-20.0 IGM (test code = GPIIGM) OJGA-7-BHFKP I 0.0 SGU 0.0-20.0 IGG (test code = GPIIGG) MPAI-5-DNCLT I 0.5 AHMET 0.0-20.0 The Antiphosp holipid [...] 0.000-0.747 H CRP (test code = CRPHS) [id number] 12:28:00 Test Item Value Reference Range Interpretation Comments FIBRINOGEN (test 640 MG/DL 160-450 H Excess admi nistration of code = FIB) anticoagulants and/or FibrinDegradati on Products may af fect Fibrinogen valu e. FACTOR [id number] 12:28:00 Test Item Value Reference Range Interpretation [...] vels are not clinicallysigni ficant. PROTEIN C [id number] 12:28:00 Test Item Value Reference Range Interpretation [...] levels of Prote in C. PROTEIN C [id number] 12:28:00 Test Item Value Reference Range Interpretation Comments PROTEIN C ANTIGENIC 71 % 70-140 Decrease d levels of (test code = PROTCAG) Protei n C Antigen may be found incongeni hetal deficiency, jerome atment with oral anticoagulants, liver disease, D.I.C. and post surgery. Perfor med by: [facility] [place] [address] PROTEIN S [id number] 12:28:00 Test Item Value Reference Range Interpretation Comments PROTEIN S TOTAL 68 % 70-140 L Performed by : [facility] (test code = Diagnostics/Misael hols [facility] Qagan Tayagungin PROTSTOT) [place] [address] PROTEIN S FUNC 70 % 74-148 L [...] anincreased thrombotic risk . MTHF REDUCTASE (PCR) [id number] 12:28:00 Test Item Value Reference Range Interpretation Comments MTHF REDUCTASE (PCR) 677 TEST NOT PERFORMED (test code = MTHFR 677) LUPUS ANTICOAGULANT [id number] 11:48:00 Test Item Value Reference Range Interpretation Comments PROTHROMBIN TIME 17.8 SECONDS 9.3-12.9 H PATIENT (test code = PTP) INTERNATIONAL NORMAL 1.6 0.8-1.2 H TARGET INR BY RATIO (test code = INDICATIO N Indication INR) INR1. Prophylax is of venous thrombos is 2.0 - 3.0 (orthoped ic surgery), Proph ylaxis of venous throm bosis (other than hig h-risk surgery), Treat ment of Deep Vein Thrombosis/Pulm onary Embolism, Preve ntion of systemic emb olism - Tissue heart va lves, Acute Myocardia l Infarction (to prevent systemic emboli sm), Valvular heart disease, Atrial Fibrillation, Bileaflet mecha nical valve in aortic position.2. Mec hanical prosthetic valv es (high risk), 2. 5 - 3.5 Presence of Lup us Anticoagulant o r Antiphospholipi d Antibodies, Pre vention of systemic emb olism - Acute Myocardia l Infarction (to prevent recurrent infar ct). THROMBOPLASTIN TIME 42.6 Seconds 25.0-39.5 H Therape utic Range: PARTIAL (test code = 61.8-83 .8 [...] iously reported result : 1.05 Edited by: [facility] on 07/06/18:349090 1510: SILICA SHABBIR MALIK previously repo rted as: 1.05 ARTERIAL THROMBOPHILIA [id number] 11:48:00 Test Item Value Reference Interpretation Comments Range PROTHROMBIN 3 NO MUTATION () PROTHROMBIN (F ACTOR II) UNTRANSLATED DETECTED 22444V>A MUTATI ON (test code = INTERPRETATION: This DS4GYVA) individual is n egative (normal) for th e [id number] in the Prothrombin/Fac tor II gene. Increased risko f thrombophilia c an be caused by a variety of genetic andnon-genetic factors not screened for th is assay. Laboratory test ing supervised and results guerrero Knox, Ph.D., DABMG, H CLD, CGMB. MUTATION ANALYS IS:The R92975F mutation [UA877476.1:g.2 1538G>A (c.*97G>A)] int he Prothrombin/Fac tor II gene is the second most commoninherited risk factor for thrombosis occuring inapproximately 2% of Caucasians. Pre sence of the mutation isasso ciated with an elevation of pr othrombin levels to about 30% above normal in heter ozygotes and 70% above olivia l inhomozygotes. The N54246F mutation is det ected bypolymerase ch ain [...] performancechar acteristics have been deter mined by [facility] la[facility]. It has not beencleared or approved by the FDA. Thi s assay has beenvalidated p ursuant to the CLIA regulation s and is used forclinical pur poses. Health care providers, please contact your lo marium [facility] ' genetic counselor or serge lind [phone]( [phone]) for assistance with interpretation of theseresults. P erformed by: [facility] alejandra/Kirstie [facility] [place], [place] [address] ACTIVATED PROT C 3.09 RATIO 2.31-5.00 Ratios [...] supervised and results guerrero Cardoza , Ph.D., [facility]. MU TATION ANALYSIS:The Fa ctor v Leiden (R560Q) mutatio n [NM 832555.2: c.160 1G>A(p.R534Q)] in the Factor V gene [...] performancechar acteristics have been deter mined by [facility] la[facility]. It has not beencleared or approved by the FDA. Thi s assay has beenvalidated p ursuant to the CLIA regulation s and is used forclinical pur poses. Health care providers, please contact your [facility] [employer] ' genetic counselor or serge lind [phone]( [phone]) for assistance with interpretation of theseresults. P erformed by: [facility]/Kirstie [facility] [place], [place] [address] PROTEIN S FREE 56 % 68-126 L [...] in cluded into the APS criteri a. XWZB-1-LQHCT I 0.8 SMU 0.0-20.0 IGM (test code = GPIIGM) XVOU-7-LJHOV I 0.0 SGU 0.0-20.0 IGG (test code = GPIIGG) AUIQ-9-FCAGS I 0.5 AHMET 0.0-20.0 The Antiphosp holipid [...] 0.000-0.747 H CRP (test code = CRPHS) [id number] 11:48:00 Test Item Value Reference Range Interpretation Comments FIBRINOGEN (test 640 MG/DL 160-450 H Excess admi nistration of code = FIB) anticoagulants and/or FibrinDegradati on Products may af fect Fibrinogen valu e. FACTOR [id number] 11:48:00 Test Item Value Reference Range Interpretation [...] vels are not clinicallysigni ficant. PROTEIN C [id number] 11:48:00 Test Item Value Reference Range Interpretation [...] levels of Prote in C. PROTEIN C [id number] 11:48:00 Test Item Value Reference Range Interpretation Comments PROTEIN C ANTIGENIC 71 % 70-140 Decrease d levels of (test code = PROTCAG) Protei n C Antigen may be found incongeni hetal deficiency, jerome atment with oral anticoagulants, liver disease, D.I.C. and post surgery. Perfor med by: [facility] [place] [address] PROTEIN S [id number] 11:48:00 Test Item Value Reference Range Interpretation Comments PROTEIN S TOTAL 68 % 70-140 L Performed by : [facility] (test code = Diagnostics/Misael hols [facility] Qagan Tayagungin PROTSTOT) [place] [address] PROTEIN S FUNC 70 % 74-148 L [...] anincreased thrombotic risk . MTHF REDUCTASE (PCR) [id number] 11:48:00 Test Item Value Reference Range Interpretation Comments MTHF REDUCTASE (PCR) 677 (test code = MTHFR 677) LUPUS ANTICOAGULANT [id number] 11:04:00 Test Item Value Reference Range Interpretation Comments PROTHROMBIN TIME 17.8 SECONDS 9.3-12.9 H PATIENT (test code = PTP) INTERNATIONAL NORMAL 1.6 0.8-1.2 H TARGET INR BY RATIO (test code = INDICATIO N Indication INR) INR1. Prophylax is of venous thrombos is 2.0 - 3.0 (orthoped ic surgery), Proph ylaxis of venous throm bosis (other than hig h-risk surgery), Treat ment of Deep Vein Thrombosis/Pulm onary Embolism, Preve ntion of systemic emb olism - Tissue heart va lves, Acute Myocardia l Infarction (to prevent systemic emboli sm), Valvular heart disease, Atrial Fibrillation, Bileaflet mecha nical valve in aortic position.2. Mec hanical prosthetic valv es (high risk), 2. 5 - 3.5 Presence of Lup us Anticoagulant o r Antiphospholipi d Antibodies, Pre vention of systemic emb olism - Acute Myocardia l Infarction (to prevent recurrent infar ct). THROMBOPLASTIN TIME 42.6 Seconds 25.0-39.5 H Therape utic Range: PARTIAL (test code = 61.8-83 .8 [...] : 1.05 Edited by: INFC E on 07/06/18:845677 1510: SILICA CL ADAMNARINDER previously repo rted as: 1.05 ARTERIAL THROMBOPHILIA [id number] 11:04:00 Test Item Value Reference Interpretation Comments Range PROTHROMBIN 3 NO MUTATION () PROTHROMBIN (F ACTOR II) UNTRANSLATED DETECTED 87171J>A MUTATI ON (test code = INTERPRETATION: This IV0UHEV) individual is n egative (normal) for th e S21636Lfghvgqwu in the Prothrombin/Fac tor II gene. Increased risko f thrombophilia c an be caused by a variety of genetic andnon-genetic factors not screened for th is assay. Laboratory test ing supervised and results guerrero Knox, Ph.D., DABMG, H CLD, CGMB. MUTATION ANALYS IS:The N37213A mutation [PK285743.1:g.2 1538G>A (c.*97G>A)] int he Prothrombin/Fac tor II gene is the second most commoninherited risk factor for thrombosis occuring inapproximately 2% of Caucasians. Pre sence of the mutation isasso ciated with an elevation of pr othrombin levels to about 30% above normal in heter ozygotes and 70% above olivia l inhomozygotes. The Q55942B mutation is det ected bypolymerase ch ain [...] performancechar acteristics have been deter mined by [facility] Jamarcus lazo. It has not beencleared or approved by the FDA. Thi s assay has beenvalidated p ursuant to the CLIA regulation s and is used forclinical pur poses. Health care providers, please contact your [facility] ' genetic counselor or [facility] [phone]( [phone]) for assistance with interpretation of theseresults. P erformed by: [facility] alejandra/Kirstie [facility] [place] [address] ACTIVATED PROT C 3.09 RATIO 2.31-5.00 Ratios [...] supervised and results guerrero Cardoza , Ph.D., [facility]. MU TATION ANALYSIS:The Fa ctor v Leiden (R560Q) mutatio n [NM 232387.2: c.160 1G>A(p.R534Q)] in the Factor V gene [...] performancechar acteristics have been deter mined by [facility]. It has not beencleared or approved by the FDA. Thi s assay has beenvalidated p ursuant to the CLIA regulation s and is used forclinical pur poses. Health care providers, please contact your [facility] [employer] ' genetic counselor or [facility] [phone]( [phone]) for assistance with interpretation of theseresults. P erformed by: [facility] justyn/Kirstie [facility] [place] [address] PROTEIN S FREE 56 % 68-126 L [...] in cluded into the APS criteri a. KTAT-5-WNGXK I SMU 0.0-20.0 IGM (test code = GPIIGM) YLIW-4-FSIHG I SGU 0.0-20.0 IGG (test code = GPIIGG) GTJA-1-OYLXQ I 0.5 AHMET 0.0-20.0 The Antiphosp holipid [...] 0.000-0.747 H CRP (test code = CRPHS) [id number] 11:04:00 Test Item Value Reference Range Interpretation Comments FIBRINOGEN (test 640 MG/DL 160-450 H Excess admi nistration of code = FIB) anticoagulants and/or FibrinDegradati on Products may af fect Fibrinogen valu e. FACTOR [id number] 11:04:00 Test Item Value Reference Range Interpretation [...] vels are not clinicallysigni ficant. PROTEIN C [id number] 11:04:00 Test Item Value Reference Range Interpretation [...] levels of Prote in C. PROTEIN C [id number] 11:04:00 Test Item Value Reference Range Interpretation Comments PROTEIN C ANTIGENIC 71 % 70-140 Decrease d levels of (test code = PROTCAG) Protei n C Antigen may be found incongeni hetal deficiency, jerome atment with oral anticoagulants, liver disease, D.I.C. and post surgery. Perfor med by: [facility] [address] PROTEIN S [id number] 11:04:00 Test Item Value Reference Range Interpretation Comments PROTEIN S TOTAL 68 % 70-140 L Performed by : [facility] (test code = Diagnostics/Misael [facility]ols [facility] PROTSTOT) [place] [address] PROTEIN S FUNC 70 % 74-148 L [...] anincreased thrombotic risk . MTHF REDUCTASE (PCR) [id number] 11:04:00 Test Item Value Reference Range Interpretation Comments MTHF REDUCTASE (PCR) 677 (test code = MTHFR 677) LUPUS ANTICOAGULANT [id number] 11:03:00 Test Item Value Reference Range Interpretation Comments PROTHROMBIN TIME 17.8 SECONDS 9.3-12.9 H PATIENT (test code = PTP) INTERNATIONAL NORMAL 1.6 0.8-1.2 H TARGET INR BY RATIO (test code = INDICATIO N Indication INR) INR1. Prophylax is of venous thrombos is 2.0 - 3.0 (orthoped ic surgery), Proph ylaxis of venous throm bosis (other than hig h-risk surgery), Treat ment of Deep Vein Thrombosis/Pulm onary Embolism, Preve ntion of systemic emb olism - Tissue heart va lves, Acute Myocardia l Infarction (to prevent systemic emboli sm), Valvular heart disease, Atrial Fibrillation, Bileaflet mecha nical valve in aortic position.2. Mec hanical prosthetic valv es (high risk), 2. 5 - 3.5 Presence of Lup us Anticoagulant o r Antiphospholipi d Antibodies, Pre vention of systemic emb olism - Acute Myocardia l Infarction (to prevent recurrent infar ct). THROMBOPLASTIN TIME 42.6 Seconds 25.0-39.5 H Therape utic Range: PARTIAL (test code = 61.8-83 .8 [...] : 1.05 Edited by: [facility] E on 07/06/18:945972 / 1510: SILICA CL OTTNARINEDR previously repo rted as: 1.05 ARTERIAL THROMBOPHILIA [id number] 11:03:00 Test Item Value Reference Interpretation Comments Range PROTHROMBIN 3 NO MUTATION () PROTHROMBIN (F ACTOR II) UNTRANSLATED DETECTED 57727Q>A MUTATI ON (test code = INTERPRETATION: This NT5VRIZ) individual is n egative (normal) for th e [id number] in the Prothrombin/Fac tor II gene. Increased risko f thrombophilia c an be caused by a variety of genetic andnon-genetic factors not screened for th is assay. Laboratory test ing supervised and results guerrero Knox, Ph.D., DABMG, H CLD, MB. MUTATION ANALYS IS:The [id number] mutation [TC874290.1:g.2 1538G>A (c.*97G>A)] int he Prothrombin/Fac tor II gene is the second most commoninherited risk factor for thrombosis occuring inapproximately 2% of Caucasians. Pre sence of the mutation isasso ciated with an elevation of pr othrombin levels to about 30% above normal in heter ozygotes and 70% above olivia l inhomozygotes. The Q74444N mutation is det ected bypolymerase ch ain [...] performancechar acteristics have been deter mined by [facility] [place]. It has not beencleared or approved by the FDA. Thi s assay has beenvalidated p ursuant to the CLIA regulation s and is used forclinical pur poses. Health care providers, please contact your marium [employer] ' genetic counselor or serge lind [phone]( [phone]) for assistance with interpretation of theseresults. P erformed by: [employer] alejandra/Thacker [facility] [place] [address] ACTIVATED PROT C 3.09 RATIO 2.31-5.00 Ratios [...] supervised and results guerrero Cardoza , Ph.D., [facility]. MU TATION ANALYSIS:The Fa ctor v Leiden (R560Q) mutatio n [NM 342849.2: c.160 1G>A(p.R534Q)] in the Factor V gene [...] performancechar acteristics have been deter mined by [facility]. It has not beencleared or approved by the FDA. Thi s assay has beenvalidated p ursuant to the CLIA regulation s and is used forclinical pur poses. Health care providers, please contact your marium [employer] ' genetic counselor or serge lind [phone]( [phone]) for assistance with interpretation of theseresults. P erformed by: [employer] alejandra/Kirstie [facility] [place] [address] PROTEIN S FREE 56 % 68-126 L [...] in cluded into the APS criteri a. MUFX-1-QQTUM I SMU 0.0-20.0 IGM (test code = GPIIGM) NWSN-4-QDVYJ I SGU 0.0-20.0 IGG (test code = GPIIGG) PKRV-5-MPBVY I 0.5 AHMET 0.0-20.0 The Antiphosp holipid [...] 0.000-0.747 H CRP (test code = CRPHS) [id number] 11:03:00 Test Item Value Reference Range Interpretation Comments FIBRINOGEN (test 640 MG/DL 160-450 H Excess admi nistration of code = FIB) anticoagulants and/or FibrinDegradati on Products may af fect Fibrinogen valu e. FACTOR [id number] 11:03:00 Test Item Value Reference Range Interpretation [...] vels are not clinicallysigni ficant. PROTEIN C [id number] 11:03:00 Test Item Value Reference Range Interpretation [...] levels of Prote in C. PROTEIN C [id number] 11:03:00 Test Item Value Reference Range Interpretation Comments PROTEIN C ANTIGENIC 71 % 70-140 Decrease d levels of (test code = PROTCAG) Protei n C Antigen may be found incongeni hetal deficiency, jerome atment with oral anticoagulants, liver disease, D.I.C. and post surgery. Perfor med by: [facility] /Kirstie [place] [address] PROTEIN S [id number] 11:03:00 Test Item Value Reference Range Interpretation [...] anincreased thrombotic risk . MTHF REDUCTASE (PCR) [id number] 11:03:00 Test Item Value Reference Range Interpretation Comments MTHF REDUCTASE (PCR) 677 (test code = MTHFR 677) LUPUS ANTICOAGULANT [id number] 21:21:00 Test Item Value Reference Range Interpretation Comments PROTHROMBIN TIME 17.8 SECONDS 9.3-12.9 H PATIENT (test code = PTP) INTERNATIONAL NORMAL 1.6 0.8-1.2 H TARGET INR BY RATIO (test code = INDICATIO N Indication INR) INR1. Prophylax is of venous thrombos is 2.0 - 3.0 (orthoped ic surgery), Proph ylaxis of venous throm bosis (other than hig h-risk surgery), Treat ment of Deep Vein Thrombosis/Pulm onary Embolism, Preve ntion of systemic emb olism - Tissue heart va lves, Acute Myocardia l Infarction (to prevent systemic emboli sm), Valvular heart disease, Atrial Fibrillation, Bileaflet mecha nical valve in aortic position.2. Mec hanical prosthetic valv es (high risk), 2. 5 - 3.5 Presence of Lup us Anticoagulant o r Antiphospholipi d Antibodies, Pre vention of systemic emb olism - Acute Myocardia l Infarction (to prevent recurrent infar ct). THROMBOPLASTIN TIME 42.6 Seconds 25.0-39.5 H Therape utic Range: PARTIAL (test code = 61.8-83 .8 [...] iously reported result : 1.05 Edited by: [facility] E on 07/06/18:394846 1510: SILICA CL OTTING previously repo rted as: 1.05 ARTERIAL THROMBOPHILIA [id number] 21:21:00 Test Item Value Reference Interpretation Comments Range PROTHROMBIN 3 UNTRANSLATED (test code = [id number]) ACTIVATED PROT C 3.09 RATIO 2.31-5.00 Ratios [...] been included i nto the APS criteria. JGBI-9-CPSRF I SMU 0.0-20.0 IGM (test code = GPIIGM) UWAZ-6-LLIZX I SGU 0.0-20.0 IGG (test code = GPIIGG) XBCF-0-JDHIU I 0.5 AHMET 0.0-20.0 The Antiphosp holipid [...] 0.000-0.747 H CRP (test code = CRPHS) [id number] 21:21:00 Test Item Value Reference Range Interpretation Comments FIBRINOGEN (test 640 MG/DL 160-450 H Excess admi nistration of code = FIB) anticoagulants and/or FibrinDegradati on Products may af fect Fibrinogen valu e. FACTOR [id number] 21:21:00 Test Item Value Reference Range Interpretation [...] vels are not clinicallysigni ficant. PROTEIN C [id number] 21:21:00 Test Item Value Reference Range Interpretation [...] levels of Prote in C. PROTEIN C [id number] 21:21:00 Test Item Value Reference Range Interpretation Comments PROTEIN C ANTIGENIC 71 % 70-140 Decrease d levels of (test code = PROTCAG) Protei n C Antigen may be found incongeni hetal deficiency, jerome atment with oral anticoagulants, liver disease, D.I.C. and post surgery. Perfor med by: [facility]/Kirstie [facility] [place] [address] PROTEIN S [id number] 21:21:00 Test Item Value Reference Range Interpretation [...] anincreased thrombotic risk . MTHF REDUCTASE (PCR) [id number] 21:21:00 Test Item Value Reference Range Interpretation Comments MTHF REDUCTASE (PCR) 677 (test code = MTHFR 677) ANTIPHOSPHATIDYL SERINE [id number] 16:18:00 Test Item Value Reference Range Interpretation Comments APS ABS IGG (test 2 GPS IgG 0-11 Performed At: [facility] code = APSIGG) [address] [id number] ra Lynne PHILLIP Ph:[phone] APS ABS IGM (test 5 MPS IgM 0-25 code = APSIGM) APS ABS IGA (test 1 APS IgA 0-20 code = APSIGA) LUPUS ANTICOAGULANT [id number] 14:43:00 Test Item Value Reference Range Interpretation Comments PROTHROMBIN TIME 17.8 SECONDS 9.3-12.9 H PATIENT (test code = PTP) INTERNATIONAL NORMAL 1.6 0.8-1.2 H TARGET INR BY RATIO (test code = INDICATIO N Indication INR) INR1. Prophylax is of venous thrombos is 2.0 - 3.0 (orthoped ic surgery), Proph ylaxis of venous throm bosis (other than hig h-risk surgery), Treat ment of Deep Vein Thrombosis/Pulm onary Embolism, Preve ntion of systemic emb olism - Tissue heart va lves, Acute Myocardia l Infarction (to prevent systemic emboli sm), Valvular heart disease, Atrial Fibrillation, Bileaflet mecha nical valve in aortic position.2. Mec hanical prosthetic valv es (high risk), 2. 5 - 3.5 Presence of Lup us Anticoagulant o r Antiphospholipi d Antibodies, Pre vention of systemic emb olism - Acute Myocardia l Infarction (to prevent recurrent infar ct). THROMBOPLASTIN TIME 42.6 Seconds 25.0-39.5 H Therape utic Range: PARTIAL (test code = 61.8-83 .8 Sec PTT) Effective 07/21/2013 PTT 1:1 MIX SPEECH CORRECTION CONSULTANT (test SECS code = PTTMIX2) PTT 1:3 [...] : 1.05 Edited by: ADDY Zhang on 07/06/18:666473 1510: SILICA CL OTTNARINDER previously repo rted as: 1.05 ARTERIAL THROMBOPHILIA [id number] 14:43:00 Test Item Value Reference Interpretation Comments Range PROTHROMBIN 3 UNTRANSLATED (test code = OR1LDBW) ACTIVATED PROT C 3.09 RATIO 2.31-5.00 Ratios [...] been included i nto the APS criteria. BGHZ-9-BUJGY I SMU 0.0-20.0 IGM (test code = GPIIGM) AIYY-3-WNYGE I SGU 0.0-20.0 IGG (test code = GPIIGG) RNEX-9-PIVBX I 0.5 AHMET 0.0-20.0 The Antiphosp holipid [...] 0.000-0.747 H CRP (test code = CRPHS) [id number] 14:43:00 Test Item Value Reference Range Interpretation Comments FIBRINOGEN (test 640 MG/DL 160-450 H Excess admi nistration of code = FIB) anticoagulants and/or FibrinDegradati on Products may af fect Fibrinogen valu e. FACTOR [id number] 14:43:00 Test Item Value Reference Range Interpretation [...] vels are not clinicallysigni ficant. PROTEIN C [id number] 14:43:00 Test Item Value Reference Range Interpretation [...] levels of Prote in C. PROTEIN C [id number] 14:43:00 Test Item Value Reference Range Interpretation Comments PROTEIN C ANTIGENIC 71 % 70-140 Decrease d levels of (test code = PROTCAG) Protei n C Antigen may be found incongeni hetal deficiency, jerome atment with oral anticoagulants, liver disease, D.I.C. and post surgery. Perfor med by: [facility] [place] [address] PROTEIN S [id number] 14:43:00 Test Item Value Reference Range Interpretation [...] anincreased thrombotic risk . MTHF REDUCTASE (PCR) [id number] 14:43:00 Test Item Value Reference Range Interpretation Comments MTHF REDUCTASE (PCR) 677 (test code = MTHFR 677) LUPUS ANTICOAGULANT [id number] 14:31:00 Test Item Value Reference Range Interpretation Comments PROTHROMBIN TIME 17.8 SECONDS 9.3-12.9 H PATIENT (test code = PTP) INTERNATIONAL NORMAL 1.6 0.8-1.2 H TARGET INR BY RATIO (test code = INDICATIO N Indication INR) INR1. Prophylax is of venous thrombos is 2.0 - 3.0 (orthoped ic surgery), Proph ylaxis of venous throm bosis (other than hig h-risk surgery), Treat ment of Deep Vein Thrombosis/Pulm onary Embolism, Preve ntion of systemic emb olism - Tissue heart va lves, Acute Myocardia l Infarction (to prevent systemic emboli sm), Valvular heart disease, Atrial Fibrillation, Bileaflet mecha nical valve in aortic position.2. Mec hanical prosthetic valv es (high risk), 2. 5 - 3.5 Presence of Lup us Anticoagulant o r Antiphospholipi d Antibodies, Pre vention of systemic emb olism - Acute Myocardia l Infarction (to prevent recurrent infar ct). THROMBOPLASTIN TIME 42.6 Seconds 25.0-39.5 H Therape utic Range: PARTIAL (test code = 61.8-83 .8 Sec PTT) Effective 07/21/2013 PTT 1:1 MIX SPEECH CORRECTION CONSULTANT (test SECS code = PTTMIX2) PTT 1:3 [...] iously reported result : 1.05 Edited by: [facility] Leatha on 07/06/18:531429 1510: SILICA SHABBIR MALIK previously repo rted as: 1.05 ARTERIAL THROMBOPHILIA [id number] 14:31:00 Test Item Value Reference Interpretation Comments Range PROTHROMBIN 3 UNTRANSLATED (test code = [id number]) ACTIVATED PROT C 3.09 RATIO 2.31-5.00 Ratios [...] been included i nto the APS criteria. EVCY-6-YEAIS I SMU <20 IGM (test code = GPIIGM) OGEW-2-JCGAW I UNITS <20 IGG (test code = GPIIGG) XRYG-4-MDJVO I 0.0-20.0 IGA (test code = GPIIGA) HOMOCYSTEINE TEST NOT 3.2-10.7 (test code = PERFORMED HOMOCY) umol/L HIGH SENSITIVITY mg/dl 0.000-0.747 H CRP (test code = CRPHS) [id number] 14:31:00 Test Item Value Reference Range Interpretation Comments FIBRINOGEN (test 640 MG/DL 160-450 H Excess admi nistration of code = FIB) anticoagulants and/or FibrinDegradati on Products may af fect Fibrinogen valu e. FACTOR [id number] 14:31:00 Test Item Value Reference Range Interpretation [...] vels are not clinicallysigni ficant. PROTEIN C [id number] 14:31:00 Test Item Value Reference Range Interpretation [...] levels of Prote in C. PROTEIN C [id number] 14:31:00 Test Item Value Reference Range Interpretation Comments PROTEIN C ANTIGENIC 71 % 70-140 Decrease d levels of (test code = PROTCAG) Protei n C Antigen may be found incongeni hetal deficiency, jerome atment with oral anticoagulants, liver disease, D.I.C. and post surgery. Perfor med by: [facility] justyn/[facility]irstie [facility] [place] [address] PROTEIN S [id number] 14:31:00 Test Item Value Reference Range Interpretation [...] anincreased thrombotic risk . MTHF REDUCTASE (PCR) [id number] 14:31:00 Test Item Value Reference Range Interpretation Comments MTHF REDUCTASE (PCR) 677 (test code = MTHFR 677) URINE AND [id number] 23:16:00 Test Item Value Reference Range Interpretation Comments UA Mucus (test code = UA Mucus) Few /LPF [facility] AND [id number] 23:16:00 Test Item Value Reference Range Interpretation Comments UA Leuk Est (test Negative (05/17/16 5:16 code = UA Leuk Est) PM) [facility] AND [id number] 23:16:00 Test Item Value Reference Range Interpretation Comments UA Bili (test code = Negative *NA*(05/17/16 UA Bili) 5:16 PM) [facility] AND [id number] 23:16:00 Test Item Value Reference Range Interpretation Comments UA Ketones (test code = UA Negative mg/dL Ketones) [facility] AND [id number] 23:16:00 Test Item Value Reference Range Interpretation Comments UA Nitrite (test code Negative (05/17/16 5:16 = UA Nitrite) PM) [facility] AND [id number] 23:16:00 Test Item Value Reference Range Interpretation Comments UA Urobilinogen (test code = UA 0.2 0.1-1.0 Urobilinogen) [facility] AND [id number] 23:16:00 Test Item Value Reference Range Interpretation Comments UA Turbidity (test code = Clear (05/17/16 5:16 UA Turbidity) PM) [facility] AND [id number] 23:16:00 Test Item Value Reference Range Interpretation Comments UA Blood (test code = Negative (05/17/16 5:16 UA Blood) PM) [facility] AND [id number] 23:16:00 Test Item Value Reference Range Interpretation Comments UA Glucose (test code = UA Negative mg/dL Glucose) [facility] AND [id number] 23:16:00 Test Item Value Reference Range Interpretation Comments UA Protein (test code = UA Negative mg/dL Protein) [facility] AND [id number] 23:16:00 Test Item Value Reference Range Interpretation Comments UA pH (test code = UA pH) 6.5 1 5.0-8.0 [facility] AND [id number] 23:16:00 Test Item Value Reference Range Interpretation Comments UA Spec Grav (test code = UA Spec 1.020 1 Grav) [facility] AND [id number] 23:16:00 Test Item Value Reference Range Interpretation Comments UA Color (test code = Yellow *NA*(05/17/16 UA Color) 5:16 PM) [facility] AND [id number] 23:16:00 Test Item Value Reference Range Interpretation Comments UA Sq Epi (test code = UA Sq Epi) Rare /LPF [facility] AND [id number] 23:16:00 Test Item Value Reference Range Interpretation Comments UA Bacteria (test code = UA Occasional /HPF Bacteria) [facility] AND [id number] 23:16:00 Test Item Value Reference Range Interpretation Comments UA RBC (test code = 0-2 /HPF See_Comment [Automa vale message] The UA RBC) system which ge nerated this result tra nsmitted reference range : <=2. The reference range was not used to interpr et this result as olivia l/abnormal. [facility] AND [id number] 23:16:00 Test Item Value Reference Range Interpretation Comments UA WBC (test code = UA WBC) 0-2 /HPF [facility] AND [id number] 23:16:00 Test Item Value Reference Range Interpretation Comments UA Mucus (test code = UA Mucus) Few /LPF [facility] AND [id number] 23:16:00 Test Item Value Reference Range Interpretation Comments UA Leuk Est (test Negative (05/17/16 5:16 code = UA Leuk Est) PM) [facility] AND [id number] 23:16:00 Test Item Value Reference Range Interpretation Comments UA Bili (test code = Negative *NA*(05/17/16 UA Bili) 5:16 PM) [facility] AND [id number] 23:16:00 Test Item Value Reference Range Interpretation Comments UA Ketones (test code = UA Negative mg/dL Ketones) [facility] AND [id number] 23:16:00 Test Item Value Reference Range Interpretation Comments UA Nitrite (test code Negative (05/17/16 5:16 = UA Nitrite) PM) [facility] AND [id number] 23:16:00 Test Item Value Reference Range Interpretation Comments UA Urobilinogen (test code = UA 0.2 0.1-1.0 Urobilinogen) [facility] AND [id number] 23:16:00 Test Item Value Reference Range Interpretation Comments UA Turbidity (test code = Clear (05/17/16 5:16 UA Turbidity) PM) [facility] AND [id number] 23:16:00 Test Item Value Reference Range Interpretation Comments UA Blood (test code = Negative (05/17/16 5:16 UA Blood) PM) [facility] AND [id number] 23:16:00 Test Item Value Reference Range Interpretation Comments UA Glucose (test code = UA Negative mg/dL Glucose) [facility] AND [id number] 23:16:00 Test Item Value Reference Range Interpretation Comments UA Protein (test code = UA Negative mg/dL Protein) [facility] AND [id number] 23:16:00 Test Item Value Reference Range Interpretation Comments UA pH (test code = UA pH) 6.5 1 5.0-8.0 [facility] AND [id number] 23:16:00 Test Item Value Reference Range Interpretation Comments UA Spec Grav (test code = UA Spec 1.020 1 Grav) [facility] AND [id number] 23:16:00 Test Item Value Reference Range Interpretation Comments UA Color (test code = Yellow *NA*(05/17/16 UA Color) 5:16 PM) [facility] AND [id number] 23:16:00 Test Item Value Reference Range Interpretation Comments UA Sq Epi (test code = UA Sq Epi) Rare /LPF [facility] AND [id number] 23:16:00 Test Item Value Reference Range Interpretation Comments UA Bacteria (test code = UA Occasional /HPF Bacteria) [facility] AND [id number] 23:16:00 Test Item Value Reference Range Interpretation Comments UA RBC (test code = 0-2 /HPF See_Comment [Automa vale message] The UA RBC) system which ge nerated this result tra nsmitted reference range : <=2. The reference range was not used to interpr et this result as olivia l/abnormal. [facility] AND [id number] 23:16:00 Test Item Value Reference Range Interpretation Comments UA WBC (test code = UA WBC) 0-2 /HPF [facility] AND [id number] 23:16:00 Test Item Value Reference Range Interpretation Comments UA Mucus (test code = UA Mucus) Few /LPF [facility] AND [id number] 23:16:00 Test Item Value Reference Range Interpretation Comments UA Leuk Est (test Negative (05/17/16 5:16 code = UA Leuk Est) PM) [facility] AND [id number] 23:16:00 Test Item Value Reference Range Interpretation Comments UA Bili (test code = Negative *NA*(05/17/16 UA Bili) 5:16 PM) [facility] AND [id number] 23:16:00 Test Item Value Reference Range Interpretation Comments UA Ketones (test code = UA Negative mg/dL Ketones) [facility] AND [id number] 23:16:00 Test Item Value Reference Range Interpretation Comments UA Nitrite (test code Negative (05/17/16 5:16 = UA Nitrite) PM) [facility] AND [id number] 23:16:00 Test Item Value Reference Range Interpretation Comments UA Urobilinogen (test code = UA 0.2 0.1-1.0 Urobilinogen) [facility] AND [id number] 23:16:00 Test Item Value Reference Range Interpretation Comments UA Turbidity (test code = Clear (05/17/16 5:16 UA Turbidity) PM) [facility] AND [id number] 23:16:00 Test Item Value Reference Range Interpretation Comments UA Blood (test code = Negative (05/17/16 5:16 UA Blood) PM) [facility] AND [id number] 23:16:00 Test Item Value Reference Range Interpretation Comments UA Glucose (test code = UA Negative mg/dL Glucose) [facility] AND [id number] 23:16:00 Test Item Value Reference Range Interpretation Comments UA Protein (test code = UA Negative mg/dL Protein) [facility] AND [id number] 23:16:00 Test Item Value Reference Range Interpretation Comments UA pH (test code = UA pH) 6.5 1 5.0-8.0 [facility] AND [id number] 23:16:00 Test Item Value Reference Range Interpretation Comments UA Spec Grav (test code = UA Spec 1.020 1 Grav) [facility] AND [id number] 23:16:00 Test Item Value Reference Range Interpretation Comments UA Color (test code = Yellow *NA*(05/17/16 UA Color) 5:16 PM) [facility] AND [id number] 23:16:00 Test Item Value Reference Range Interpretation Comments UA Sq Epi (test code = UA Sq Epi) Rare /LPF [facility] AND [id number] 23:16:00 Test Item Value Reference Range Interpretation Comments UA Bacteria (test code = UA Occasional /HPF Bacteria) [facility] AND [id number] 23:16:00 Test Item Value Reference Range Interpretation Comments UA RBC (test code = 0-2 /HPF See_Comment [Automa vale message] The UA RBC) system which ge nerated this result tra nsmitted reference range : <=2. The reference range was not used to interpr et this result as olivia l/abnormal. [facility] AND [id number] 23:16:00 Test Item Value Reference Range Interpretation Comments UA WBC (test code = UA WBC) 0-2 /HPF [facility]2016-11-25 22:01:00 Test Item Value Reference Range Interpretation Comments Total Protein (test code = Total 7.7 6.4-8.4 Protein) [facility]2016-11-25 22:01:00 Test Item Value Reference Range Interpretation Comments Globulin (test code = Globulin) 4.4 2.7-4.2 [facility]2016-11-25 22:01:00 Test Item Value Reference Range Interpretation Comments A/G Ratio (test code = A/G Ratio) 0.8 0.7-1.6 [facility]2016-11-25 22:01:00 Test Item Value Reference Range Interpretation Comments Glucose Lvl (test code = Glucose Lvl) 148 70-99 [facility]2016-11-25 22:01:00 Test Item Value Reference Range Interpretation Comments BUN (test code = BUN) 15 7-22 [facility]2016-11-25 22:01:00 Test Item Value Reference Range Interpretation Comments Creatinine Lvl (test code = Creatinine 1.11 0.50-1.40 Lvl) [facility]2016-11-25 22:01:00 Test Item Value Reference Range Interpretation Comments Sodium Lvl (test code = Sodium Lvl) 140 135-145 [facility]2016-11-25 22:01:00 Test Item Value Reference Range Interpretation Comments Potassium Lvl (test code = Potassium 3.7 3.5-5.1 Lvl) [facility]2016-11-25 22:01:00 Test Item Value Reference Range Interpretation Comments Albumin Lvl (test code = Albumin Lvl) 3.3 3.5-5.0 [facility]2016-11-25 22:01:00 Test Item Value Reference Range Interpretation Comments Alk Phos (test code = Alk Phos) 129 39-136 [facility]2016-11-25 22:01:00 Test Item Value Reference Range Interpretation Comments ALANINE AMINOTRANSFERASE 30 See_Comment [A utomated message] (test code = ALANINE The sys tem which AMINOTRANSFERASE) generated this result transmitted ref erence range: <=65. Th e reference range was not used to int erpret this result as normal/abnormal . [facility] RockNvbxlmeBJVNYEMVNI1643-23-11 22:01:00 Test Item Value Reference Range Interpretation Comments MPV (test code = MPV) 7.3 7.4-10.4 [facility] RockYyjuifmXYQFOIAKNZ3980-52-77 22:01:00 Test Item Value Reference Range Interpretation Comments Platelet (test code = Platelet) 281 133-450 [facility] RockZuzajokPTGNIGPJRX1331-44-10 22:01:00 Test Item Value Reference Range Interpretation Comments RBC X 10x6 (test code = RBC X 10x6) 5.30 4.70-6.10 [facility] RockBbdjhlsQTCFIAJFLX0125-12-68 22:01:00 Test Item Value Reference Range Interpretation Comments WBC X 10x3 (test code = WBC X 10x3) 10.5 3.7-10.4 [facility] RockZwxvglgINAJMSYAYW0497-55-71 22:01:00 Test Item Value Reference Range Interpretation Comments Hgb (test code = Hgb) 12.4 14.0-18.0 [facility] RockAwagfokSUUIMGDQKE0505-85-01 22:01:00 Test Item Value Reference Range Interpretation Comments Hct (test code = Hct) 36.8 42.0-54.0 [facility] RockLuqdgfxONQJJYFFEO7196-01-35 22:01:00 Test Item Value Reference Range Interpretation Comments MCV (test code = MCV) 69.4 80.0-94.0 [facility] RockSldjeeyWEHYFYQTPT2999-56-31 22:01:00 Test Item Value Reference Range Interpretation Comments MCH (test code = MCH) 23.4 pg 27.0-31.0 [facility] RockZnrznxgTGIXPEPUPD2033-68-53 22:01:00 Test Item Value Reference Range Interpretation Comments MCHC (test code = MCHC) 33.7 32.0-36.0 [facility] RockEjfrkzlNYJUIMTSEC4639-03-97 22:01:00 Test Item Value Reference Range Interpretation Comments RDW (test code = RDW) 17.1 11.5-14.5 [facility] RockGilwiafAMLXWYBRCE4580-51-92 22:01:00 Test Item Value Reference Range Interpretation Comments aPTT (test code = aPTT) 35.4 s 22.9-35.8 [facility] RockQwqfgymTPWIDCVGBV1579-65-62 22:01:00 Test Item Value Reference Range Interpretation Comments PROTIME (test code = PROTIME) 13.1 s 12.0-14.7 [facility] RockAlhbgodOFDJPNJZTP1559-48-81 22:01:00 Test Item Value Reference Range Interpretation Comments INR (test code = INR) 0.97 0.85-1.17 [facility] RockHlzwejzNMMLZYXYFF1913-31-36 22:01:00 Test Item Value Reference Range Interpretation Comments Eosinophils (test code = 1.1 See_Comment [A utomated message] The Eosinophils) system which ge nerated this result tra nsmitted reference range : <=4.0. The reference r shashi was not used to int erpret this result as normal/abnormal . [facility] RockUgxiiqlOSLDMPEOJN9225-50-06 22:01:00 Test Item Value Reference Range Interpretation Comments Monocytes (test code = Monocytes) 6.7 2.0-12.0 [facility] RockKzczbmgZMITTWXCFQ5995-26-30 22:01:00 Test Item Value Reference Range Interpretation Comments Segs-Bands # (test code = Segs-Bands #) 7.2 1.5-8.1 [facility] RockTvbvmyxDSHNANVXWI3979-54-53 22:01:00 Test Item Value Reference Range Interpretation Comments Basophils (test code = 1.1 See_Comment [Aut omated message] The Basophils) system which ge nerated this result tra nsmitted reference range : <=1.0. The reference r shashi was not used to int erpret this result as normal/abnormal . [facility] RockCrpxuadPBSKAJZBOB7253-96-13 22:01:00 Test Item Value Reference Range Interpretation Comments Lymphocytes # (test code = Lymphocytes 2.4 1.0-5.5 #) [facility] RockOdsvynxILGUQTEXTK5909-33-44 22:01:00 Test Item Value Reference Range Interpretation Comments Monocytes # (test code 0.7 See_Comment [Aut omated message] The = Monocytes #) system which generated this result tra nsmitted reference range : <=0.8. The reference r shashi was not used to int erpret this result as normal/abnormal . [facility] RockFzyelibGWRPUSQAMI8949-23-91 22:01:00 Test Item Value Reference Range Interpretation Comments Eosinophils # (test code 0.1 See_Comment [A utomated message] The = Eosinophils #) system whic h generated this result tra nsmitted reference range : <=0.5. The reference r shashi was not used to int erpret this result as normal/abnormal . [facility] AreaIujmjscVBOXFBTLJH1152-23-65 22:01:00 Test Item Value Reference Range Interpretation Comments Microcyte (test code = 2+ *ABN*(05/17/16 Microcyte) 4:01 PM) [facility]fwGWQWQFXUKM7753[facility]68-[facility] 22:01:00 Test Item Value Reference Range Interpretation Comments Basophils # (test code 0.1 See_Comment [Aut omated message] The = Basophils #) system which generated this result tra nsmitted reference range : <=0.2. The reference r shashi was not used to int erpret this result as normal/abnormal . [facility]HzvqznpXSRBWTCTPO1912-22-73 22:01:00 Test Item Value Reference Range Interpretation Comments Lymphocytes (test code = Lymphocytes) 22.3 20.0-40.0 [facility]HbsqdplVOBPNOEGCZ8563-52-72 22:01:00 Test Item Value Reference Range Interpretation Comments Segs (test code = Segs) 68.8 45.0-75.0 [facility] AreaCARTouchtown Inc.AC [id number] 22:01:00 Test Item Value Reference Range Interpretation Comments Total CK (test code = Total CK) 74 12-191 [facility] AreaCARAC [id number] 22:01:00 Test Item Value Reference Range Interpretation Comments CK MB (test code = CK MB) 0.8 0.5-3.6 [facility] AreaCARAC [id number] 22:01:00 Test Item Value Reference Range Interpretation Comments Troponin-I (test code no gt See_Comment [Auto mated message] The = Troponin-I) system which g enerated this result transmit vale reference range : <=0.40. The reference r shashi was not used to interpr et this result as olivia l/abnormal. [facility] HospitalTastyNow.comCARNeozone BGNYOJE9903-73-61 22:01:00 Test Item Value Reference Range Interpretation Comments CK-MB INDEX (test 1.1 See_Comment [Automate d message] The code = CK-MB INDEX) system w [facility] generated this result transmit vale reference range : <=2.5. The reference range was not used to interpr et this result as olivia l/abnormal. [facility] HospitalTastyNow.comCHEM [id number] 22:01:00 Test Item Value Reference Range Interpretation Comments eGFR (test code = eGFR) 79 [facility]2016-11-25 22:01:00 Test Item Value Reference Range Interpretation Comments Chloride Lvl (test code = Chloride Lvl) 106 95-109 [facility]2016-11-25 22:01:00 Test Item Value Reference Range Interpretation Comments CO2 (test code = CO2) 28 24-32 [facility]2016-11-25 22:01:00 Test Item Value Reference Range Interpretation Comments Calcium Lvl (test code = Calcium Lvl) 8.8 8.5-10.5 [facility]2016-11-25 22:01:00 Test Item Value Reference Range Interpretation Comments Bili Total (test code = Bili Total) 0.4 0.2-1.3 [facility]2016-11-25 22:01:00 Test Item Value Reference Range Interpretation Comments AGAP (test code = AGAP) 9.7 10.0-20.0 [facility]2016-11-25 22:01:00 Test Item Value Reference Range Interpretation Comments B/C Ratio (test code = B/C Ratio) 14 6-25 [facility]2016-11-25 22:01:00 Test Item Value Reference Range Interpretation Comments ASPARTATE TRANSAMINASE 14 See_Comment [Aut omated message] (test code = ASPARTATE The s ystem which TRANSAMINASE) generated this result transmitted ref erence range: <=37. Th e reference range was not used to interpr et this result as normal/abnormal . [facility]2016-11-25 22:01:00 Test Item Value Reference Range Interpretation Comments Total Protein (test code = Total 7.7 6.4-8.4 Protein) [facility]2016-11-25 22:01:00 Test Item Value Reference Range Interpretation Comments Globulin (test code = Globulin) 4.4 2.7-4.2 [facility]2016-11-25 22:01:00 Test Item Value Reference Range Interpretation Comments A/G Ratio (test code = A/G Ratio) 0.8 0.7-1.6 [facility]2016-11-25 22:01:00 Test Item Value Reference Range Interpretation Comments Glucose Lvl (test code = Glucose Lvl) 148 70-99 [facility]2016-11-25 22:01:00 Test Item Value Reference Range Interpretation Comments BUN (test code = BUN) 15 7-22 [facility]2016-11-25 22:01:00 Test Item Value Reference Range Interpretation Comments Creatinine Lvl (test code = Creatinine 1.11 0.50-1.40 Lvl) [facility]2016-11-25 22:01:00 Test Item Value Reference Range Interpretation Comments Sodium Lvl (test code = Sodium Lvl) 140 135-145 [facility]2016-11-25 22:01:00 Test Item Value Reference Range Interpretation Comments Potassium Lvl (test code = Potassium 3.7 3.5-5.1 Lvl) [facility]2016-11-25 22:01:00 Test Item Value Reference Range Interpretation Comments Albumin Lvl (test code = Albumin Lvl) 3.3 3.5-5.0 [facility]2016-11-25 22:01:00 Test Item Value Reference Range Interpretation Comments Alk Phos (test code = Alk Phos) 129 39-136 [facility]2016-11-25 22:01:00 Test Item Value Reference Range Interpretation Comments ALANINE AMINOTRANSFERASE 30 See_Comment [A utomated message] (test code = ALANINE The sys tem which AMINOTRANSFERASE) generated this result transmitted ref erence range: <=65. Th e reference range was not used to int erpret this result as normal/abnormal . [facility] RockGgntxxtPWSNHBBHHI8164-75-04 22:01:00 Test Item Value Reference Range Interpretation Comments MPV (test code = MPV) 7.3 7.4-10.4 [facility] RockNakulqpIDOWGQUMNN5218-64-67 22:01:00 Test Item Value Reference Range Interpretation Comments Platelet (test code = Platelet) 281 133-450 [facility] RockYyzatacASDOFRISCF9164-44-49 22:01:00 Test Item Value Reference Range Interpretation Comments RBC X 10x6 (test code = RBC X 10x6) 5.30 4.70-6.10 [facility] RockJafdsepMVRHLZHWDE6844-76-02 22:01:00 Test Item Value Reference Range Interpretation Comments WBC X 10x3 (test code = WBC X 10x3) 10.5 3.7-10.4 [facility] RockFcypqkxYIBKRCDOXR0578-46-98 22:01:00 Test Item Value Reference Range Interpretation Comments Hgb (test code = Hgb) 12.4 14.0-18.0 [facility] RockVslgaodUXGNMUDPSY6705-74-87 22:01:00 Test Item Value Reference Range Interpretation Comments Hct (test code = Hct) 36.8 42.0-54.0 [facility] RockBrojrocYWPKESUZDI5432-33-82 22:01:00 Test Item Value Reference Range Interpretation Comments MCV (test code = MCV) 69.4 80.0-94.0 [facility] RockHtbtybtIZXLJHWBMD5051-23-15 22:01:00 Test Item Value Reference Range Interpretation Comments MCH (test code = MCH) 23.4 pg 27.0-31.0 [facility] RockFwrvkjsKVRULAMJLE4822-04-58 22:01:00 Test Item Value Reference Range Interpretation Comments MCHC (test code = MCHC) 33.7 32.0-36.0 [facility] RockYkpfwfqEYLODINKGE5455-79-76 22:01:00 Test Item Value Reference Range Interpretation Comments RDW (test code = RDW) 17.1 11.5-14.5 [facility] RockFmqrwttRMGIEBXZNK9313-01-08 22:01:00 Test Item Value Reference Range Interpretation Comments aPTT (test code = aPTT) 35.4 s 22.9-35.8 [facility] RockPcboixxQTXUMCFSTC3173-66-23 22:01:00 Test Item Value Reference Range Interpretation Comments PROTIME (test code = PROTIME) 13.1 s 12.0-14.7 [facility] RockAgslksfMDQHQUXHEZ8158-21-07 22:01:00 Test Item Value Reference Range Interpretation Comments INR (test code = INR) 0.97 0.85-1.17 [facility] RockXcixqgiQRZQLQGEOU3408-47-50 22:01:00 Test Item Value Reference Range Interpretation Comments Eosinophils (test code = 1.1 See_Comment [A utomated message] The Eosinophils) system which ge nerated this result tra nsmitted reference range : <=4.0. The reference r shashi was not used to int erpret this result as normal/abnormal . [facility] RockWamihvdQFFTHSOGRF2571-31-76 22:01:00 Test Item Value Reference Range Interpretation Comments Monocytes (test code = Monocytes) 6.7 2.0-12.0 [facility] RockTtuaedrOEDDRURTPV8363-60-72 22:01:00 Test Item Value Reference Range Interpretation Comments Segs-Bands # (test code = Segs-Bands #) 7.2 1.5-8.1 [facility] RockEvpeogoQZBELBYHLR9846-97-53 22:01:00 Test Item Value Reference Range Interpretation Comments Basophils (test code = 1.1 See_Comment [Aut omated message] The Basophils) system which ge nerated this result tra nsmitted reference range : <=1.0. The reference r shashi was not used to int erpret this result as normal/abnormal . [facility] RockXjaqzbxNGPVDSUHZI5686-67-85 22:01:00 Test Item Value Reference Range Interpretation Comments Lymphocytes # (test code = Lymphocytes 2.4 1.0-5.5 #) [facility] RockRercjlzZGWQXSWQBZ0296-35-73 22:01:00 Test Item Value Reference Range Interpretation Comments Monocytes # (test code 0.7 See_Comment [Aut omated message] The = Monocytes #) system which generated this result tra nsmitted reference range : <=0.8. The reference r shashi was not used to int erpret this result as normal/abnormal . [facility] RockSmzdedlYRHJLLVCKL4979-06-48 22:01:00 Test Item Value Reference Range Interpretation Comments Eosinophils # (test code 0.1 See_Comment [A utomated message] The = Eosinophils #) system whic h generated this result tra nsmitted reference range : <=0.5. The reference r shashi was not used to int erpret this result as normal/abnormal . [facility] RockIoiscxmOQOQFFMERB2499-74-54 22:01:00 Test Item Value Reference Range Interpretation Comments Microcyte (test code = 2+ *ABN*(05/17/16 Microcyte) 4:01 PM) [facility] RockOgdyajqJDKHZDZBFW1988-12-50 22:01:00 Test Item Value Reference Range Interpretation Comments Basophils # (test code 0.1 See_Comment [Aut omated message] The = Basophils #) system which generated this result tra nsmitted reference range : <=0.2. The reference r shashi was not used to int erpret this result as normal/abnormal . [facility] RockQlsxoxxABVENBFUUG5916-56-75 22:01:00 Test Item Value Reference Range Interpretation Comments Lymphocytes (test code = Lymphocytes) 22.3 20.0-40.0 [facility] RockTwjnozcLRQRGODFAL5565-05-91 22:01:00 Test Item Value Reference Range Interpretation Comments Segs (test code = Segs) 68.8 45.0-75.0 [facility] HospitalannCARAC [id number] 22:01:00 Test Item Value Reference Range Interpretation Comments Total CK (test code = Total CK) 74 12-191 [facility] AreaWham City LightsUOFL [facility] [id number] 22:01:00 Test Item Value Reference Range Interpretation Comments CK MB (test code = CK MB) 0.8 0.5-3.6 [facility] AreaWham City LightsUOFL [facility] [id number] 22:01:00 Test Item Value Reference Range Interpretation Comments Troponin-I (test code no gt See_Comment [Auto mated message] The = Troponin-I) system which g enerated this result transmit vale reference range : <=0.40. The reference r shashi was not used to interpr et this result as olivia l/abnormal. [facility] HospitalChannelsoft ([place]) [employer] [id number] 22:01:00 Test Item Value Reference Range Interpretation Comments CK-MB INDEX (test 1.1 See_Comment [Automate d message] The code = CK-MB INDEX) system w [facility] generated this result transmit vale reference range : <=2.5. The reference range was not used to interpr et this result as olivia l/abnormal. [facility] [employer] [id number] 22:01:00 Test Item Value Reference Range Interpretation Comments eGFR (test code = eGFR) 79 [facility] [employer] [id number] 22:01:00 Test Item Value Reference Range Interpretation Comments Chloride Lvl (test code = Chloride Lvl) 106 95-109 [facility] [employer] [id number] 22:01:00 Test Item Value Reference Range Interpretation Comments CO2 (test code = CO2) 28 24-32 [facility] [employer] [id number] 22:01:00 Test Item Value Reference Range Interpretation Comments Calcium Lvl (test code = Calcium Lvl) 8.8 8.5-10.5 [facility] [employer] [id number] 22:01:00 Test Item Value Reference Range Interpretation Comments Bili Total (test code = Bili Total) 0.4 0.2-1.3 [facility] [employer] [facility]2016-11-25 22:01:00 Test Item Value Reference Range Interpretation Comments AGAP (test code = AGAP) 9.7 10.0-20.0 [facility]2016-11-25 22:01:00 Test Item Value Reference Range Interpretation Comments B/C Ratio (test code = B/C Ratio) 14 6- [facility]2016-11-25 22:01:00 Test Item Value Reference Range Interpretation Comments ASPARTATE TRANSAMINASE 14 See_Comment [Aut omated message] (test code = ASPARTATE The s ystem which TRANSAMINASE) generated this result transmitted ref erence range: <=37. Th e reference range was not used to interpr et this result as normal/abnormal . [facility]2016-11-25 22:01:00 Test Item Value Reference Range Interpretation Comments Total Protein (test code = Total 7.7 6.4-8.4 Protein) [facility]2016-11-25 22:01:00 Test Item Value Reference Range Interpretation Comments Globulin (test code = Globulin) 4.4 2.7-4.2 [facility]2016-11-25 22:01:00 Test Item Value Reference Range Interpretation Comments A/G Ratio (test code = A/G Ratio) 0.8 0.7-1.6 [facility]2016-11-25 22:01:00 Test Item Value Reference Range Interpretation Comments Glucose Lvl (test code = Glucose Lvl) 148 70-99 [facility]2016-11-25 22:01:00 Test Item Value Reference Range Interpretation Comments BUN (test code = BUN) 15 - [facility]2016-11-25 22:01:00 Test Item Value Reference Range Interpretation Comments Creatinine Lvl (test code = Creatinine 1.11 0.50-1.40 Lvl) [facility]2016-11-25 22:01:00 Test Item Value Reference Range Interpretation Comments Sodium Lvl (test code = Sodium Lvl) 140 135-145 [facility]2016-11-25 22:01:00 Test Item Value Reference Range Interpretation Comments Potassium Lvl (test code = Potassium 3.7 3.5-5.1 Lvl) [facility]2016-11-25 22:01:00 Test Item Value Reference Range Interpretation Comments Albumin Lvl (test code = Albumin Lvl) 3.3 3.5-5.0 [facility] [id number] 22:01:00 Test Item Value Reference Range Interpretation Comments Alk Phos (test code = Alk Phos) 129 39-136 [facility] [id number] 22:01:00 Test Item Value Reference Range Interpretation Comments ALANINE AMINOTRANSFERASE 30 See_Comment [A utomated message] (test code = ALANINE The sys tem which AMINOTRANSFERASE) generated this result transmitted ref erence range: <=65. Th e reference range was not used to int erpret this result as normal/abnormal . [facility] RockVpsdpmqFMCZAAOQPL9353-79-28 22:01:00 Test Item Value Reference Range Interpretation Comments MPV (test code = MPV) 7.3 7.4-10.4 [facility] RockQjqsoqfHIBBWRONDE8613-17-24 22:01:00 Test Item Value Reference Range Interpretation Comments Platelet (test code = Platelet) 281 133-450 [facility] RockQtetrkwCQDBVZMPFD6355-23-30 22:01:00 Test Item Value Reference Range Interpretation Comments RBC X 10x6 (test code = RBC X 10x6) 5.30 4.70-6.10 [facility] RockCdrgglmLEBGLLSTRV3517-60-84 22:01:00 Test Item Value Reference Range Interpretation Comments WBC X 10x3 (test code = WBC X 10x3) 10.5 3.7-10.4 [facility] RockMhadicxOWBIWNZIZE7749-13-85 22:01:00 Test Item Value Reference Range Interpretation Comments Hgb (test code = Hgb) 12.4 14.0-18.0 [facility] RockCucyphdVMVQWAFGKM6509-53-68 22:01:00 Test Item Value Reference Range Interpretation Comments Hct (test code = Hct) 36.8 42.0-54.0 [facility] RockXrfisoxMRASRIIKDT9111-66-40 22:01:00 Test Item Value Reference Range Interpretation Comments MCV (test code = MCV) 69.4 80.0-94.0 [facility] RockJnaigyxJAZMSCEJCN2955-17-75 22:01:00 Test Item Value Reference Range Interpretation Comments MCH (test code = MCH) 23.4 pg 27.0-31.0 [facility] [place]jh[place]OXHONBUVQ3099-66-28 22:01:00 Test Item Value Reference Range Interpretation Comments MCHC (test code = MCHC) 33.7 32.0-36.0 [facility] [place] RockPqciyztYAUKUHEPIS2315-37-82 22:01:00 Test Item Value Reference Range Interpretation Comments RDW (test code = RDW) 17.1 11.5-14.5 [facility] [place] RockRwmjwmfZKBMSBWOIG0918-15-30 22:01:00 Test Item Value Reference Range Interpretation Comments aPTT (test code = aPTT) 35.4 s 22.9-35.8 [facility] [place] RockGazzlwpTJMLNBYRCH6393-42-46 22:01:00 Test Item Value Reference Range Interpretation Comments PROTIME (test code = PROTIME) 13.1 s 12.0-14.7 [facility] [place] RockBusvvnmXGUWVFAJWH7435-86-27 22:01:00 Test Item Value Reference Range Interpretation Comments INR (test code = INR) 0.97 0.85-1.17 [facility] [place] RockPhccriuCFJWSKAQUM8034-67-04 22:01:00 Test Item Value Reference Range Interpretation Comments Eosinophils (test code = 1.1 See_Comment [A utomated message] The Eosinophils) system which ge nerated this result tra nsmitted reference range : <=4.0. The reference r shashi was not used to int erpret this result as normal/abnormal . [facility] [place] RockAqjibviVAVAPKRCXK8564-58-22 22:01:00 Test Item Value Reference Range Interpretation Comments Monocytes (test code = Monocytes) 6.7 2.0-12.0 [facility] [place] RockTagxlymMYSXQZXMPQ0511-18-83 22:01:00 Test Item Value Reference Range Interpretation Comments Segs-Bands # (test code = Segs-Bands #) 7.2 1.5-8.1 [facility] [place] RockSwnjkxeUXIJJWQCSN4233-15-43 22:01:00 Test Item Value Reference Range Interpretation Comments Basophils (test code = 1.1 See_Comment [Aut omated message] The Basophils) system which ge nerated this result tra nsmitted reference range : <=1.0. The reference r shashi was not used to int erpret this result as normal/abnormal . [facility] [place] RockCwnwnwaBQKTRZJLGD5688-03-42 22:01:00 Test Item Value Reference Range Interpretation Comments Lymphocytes # (test code = Lymphocytes 2.4 1.0-5.5 #) [facility] [place] RockNlpektrJUPAOGQMOI0821-63-46 22:01:00 Test Item Value Reference Range Interpretation Comments Monocytes # (test code 0.7 See_Comment [Aut omated message] The = Monocytes #) system which generated this result tra nsmitted reference range : <=0.8. The reference r shashi was not used to int erpret this result as normal/abnormal . [facility] [place] RockNkrbtqfMDMXAWUAAE9226-09-75 22:01:00 Test Item Value Reference Range Interpretation Comments Eosinophils # (test code 0.1 See_Comment [A utomated message] The = Eosinophils #) system whic h generated this result tra nsmitted reference range : <=0.5. The reference r shashi was not used to int erpret this result as normal/abnormal . [facility] [place] RockQanzohaLBEEBFXRCO0648-87-44 22:01:00 Test Item Value Reference Range Interpretation Comments Microcyte (test code = 2+ *ABN*(05/17/16 Microcyte) 4:01 PM) [facility] [place] RockWvsiyfuONZUWDDUSB8626-08-66 22:01:00 Test Item Value Reference Range Interpretation Comments Basophils # (test code 0.1 See_Comment [Aut omated message] The = Basophils #) system which generated this result tra nsmitted reference range : <=0.2. The reference r shashi was not used to int erpret this result as normal/abnormal . [facility] [place] RockUgalopiYHIKIFRBJS1278-04-09 22:01:00 Test Item Value Reference Range Interpretation Comments Lymphocytes (test code = Lymphocytes) 22.3 20.0-40.0 [facility] [place] RockHjqncvvGZPWZNIMNI2109-59-46 22:01:00 Test Item Value Reference Range Interpretation Comments Segs (test code = Segs) 68.8 45.0-75.0 [facility] [id number] 22:01:00 Test Item Value Reference Range Interpretation Comments Total CK (test code = Total CK) 74 12-191 [facility] NUCPZDQ6610-10-19 22:01:00 Test Item Value Reference Range Interpretation Comments CK MB (test code = CK MB) 0.8 0.5-3.6 [facility] [id number] 22:01:00 Test Item Value Reference Range Interpretation Comments Troponin-I (test code no gt See_Comment [Auto mated message] The = Troponin-I) system which g enerated this result transmit vale reference range : <=0.40. The reference r shashi was not used to interpr et this result as olivia l/abnormal. [facility] ACIODHC1488-71-34 22:01:00 Test Item Value Reference Range Interpretation Comments CK-MB INDEX (test 1.1 See_Comment [Automate d message] The code = CK-MB INDEX) system w [facility] generated this result transmit vale reference range : <=2.5. The reference range was not used to interpr et this result as olivia l/abnormal. [facility] [id number] 22:01:00 Test Item Value Reference Range Interpretation Comments eGFR (test code = eGFR) 79 [facility] [id number] 22:01:00 Test Item Value Reference Range Interpretation Comments Chloride Lvl (test code = Chloride Lvl) 106 95-109 [facility] [id number] 22:01:00 Test Item Value Reference Range Interpretation Comments CO2 (test code = CO2) 28 24-32 [facility] [id number] 22:01:00 Test Item Value Reference Range Interpretation Comments Calcium Lvl (test code = Calcium Lvl) 8.8 8.5-10.5 [facility] [id number] 22:01:00 Test Item Value Reference Range Interpretation Comments Bili Total (test code = Bili Total) 0.4 0.2-1.3 [facility] [id number] 22:01:00 Test Item Value Reference Range Interpretation Comments AGAP (test code = AGAP) 9.7 10.0-20.0 [facility] [id number] 22:01:00 Test Item Value Reference Range Interpretation Comments B/C Ratio (test code = B/C Ratio) 14 6-25 [facility] [id number] 22:01:00 Test Item Value Reference Range Interpretation Comments ASPARTATE TRANSAMINASE 14 See_Comment [Aut omated message] (test code = ASPARTATE The s ystem which TRANSAMINASE) generated this result transmitted ref erence range: <=37. Th e reference range was not used to interpr et this result as normal/abnormal . [facility] QOXPQQY3884-33-30 15:25:00 Test Item Value Reference Range Interpretation Comments Troponin-I (test code no gt See_Comment [Auto mated message] The = Troponin-I) system which g enerated this result transmit vale reference range : <=0.40. The reference r shashi was not used to interpr et this result as olivia l/abnormal. [facility] [place] RockFwunwnkNEHGHOMWWJ9343-86-52 15:25:00 Test Item Value Reference Range Interpretation Comments aPTT (test code = aPTT) 50.1 s 22.9-35.8 [facility] [id number] 15:25:00 Test Item Value Reference Range Interpretation Comments Troponin-I (test code no gt See_Comment [Auto mated message] The = Troponin-I) system which g enerated this result transmit vale reference range : <=0.40. The reference r shashi was not used to interpr et this result as olivia l/abnormal. [facility] [place] RockLozjnsaWAABWJWSWX7128-41-63 15:25:00 Test Item Value Reference Range Interpretation Comments aPTT (test code = aPTT) 50.1 s 22.9-35.8 [facility] [id number] 15:25:00 Test Item Value Reference Range Interpretation Comments Troponin-I (test code no gt See_Comment [Auto mated message] The = Troponin-I) system which g enerated this result transmit vale reference range : <=0.40. The reference r shashi was not used to interpr et this result as olivia l/abnormal. [facility] [place] RockHscfxamLUGUZEEVJQ5844-26-96 15:25:00 Test Item Value Reference Range Interpretation Comments aPTT (test code = aPTT) 50.1 s 22.9-35.8 [facility]BzrebqvYNHLPYXPPIXD1525-17-03 08:42:00 Test Item Value Reference Range Interpretation Comments AGAP (test code = AGAP) 10.8 10.0-20.0 [facility] SaultCockdhjUXPASIUAVPQX0395-61-30 08:42:00 Test Item Value Reference Range Interpretation Comments CO2 (test code = CO2) 28 24-32 [facility] SaultZaqbjtpTIHKWMPUEQJQ4168-56-82 08:42:00 Test Item Value Reference Range Interpretation Comments Chloride Lvl (test code = Chloride Lvl) 105 95-109 [facility] SaultYvrvdiiPKBJLYRKKUCP6221-81-54 08:42:00 Test Item Value Reference Range Interpretation Comments Calcium Lvl (test code = Calcium Lvl) 8.7 8.5-10.5 [facility] SaultAsbxoleQMSENTYSZAPO2134-99-90 08:42:00 Test Item Value Reference Range Interpretation Comments eGFR (test code = eGFR) 103 [facility] SaultHccvpyaMCHJAIMDHENL5065-13-79 08:42:00 Test Item Value Reference Range Interpretation Comments Glucose Lvl (test code = Glucose Lvl) 123 70-99 [facility] SaultJzohtbwXFEMEXCAXAJO9697-37-98 08:42:00 Test Item Value Reference Range Interpretation Comments Creatinine Lvl (test code = Creatinine 0.86 0.50-1.40 Lvl) [facility] SaultDnvurjeWPUFEGYXUXNL6336-96-86 08:42:00 Test Item Value Reference Range Interpretation Comments BUN (test code = BUN) 18 7-22 [facility] SaultZrddtuaUIPMIJTHSHLP8900-20-91 08:42:00 Test Item Value Reference Range Interpretation Comments Potassium Lvl (test code = Potassium 3.8 3.5-5.1 Lvl) [facility] SaultOjnvtinRZSWBCFXALZI5735-45-55 08:42:00 Test Item Value Reference Range Interpretation Comments Sodium Lvl (test code = Sodium Lvl) 140 135-145 [facility] [place] RockNnkdtqrVECTPVXFWC3129-80-42 08:42:00 Test Item Value Reference Range Interpretation Comments Microcyte (test code = 2+ *ABN*(05/06/16 Microcyte) 2:42 AM) [facility] [place] RockNlymffpEFVDPUQHCQ0736-31-61 08:42:00 Test Item Value Reference Range Interpretation Comments Eosinophils # (test code 0.2 See_Comment [A utomated message] The = Eosinophils #) system whic h generated this result tra nsmitted reference range : <=0.5. The reference r shashi was not used to int erpret this result as normal/abnormal . [facility] [place] RockMfyxrcdVDKSLCPNLH9713-50-92 08:42:00 Test Item Value Reference Range Interpretation Comments Monocytes # (test code 0.8 See_Comment [Aut omated message] The = Monocytes #) system which generated this result tra nsmitted reference range : <=0.8. The reference r shashi was not used to int erpret this result as normal/abnormal . [facility] [place] RockSvokltoCQMGIHYWGW3188-97-13 08:42:00 Test Item Value Reference Range Interpretation Comments Monocytes (test code = Monocytes) 7.9 2.0-12.0 [facility] [place] RockBwyuugeCSJIQGHIZV7814-01-22 08:42:00 Test Item Value Reference Range Interpretation Comments Lymphocytes # (test code = Lymphocytes 2.5 1.0-5.5 #) [facility] [place] RockQjfpvbpHCFBIXTFCL0739-86-16 08:42:00 Test Item Value Reference Range Interpretation Comments Segs-Bands # (test code = Segs-Bands #) 6.5 1.5-8.1 [facility] [place] RockBqnpnosVTBQASSFEA5202-81-79 08:42:00 Test Item Value Reference Range Interpretation Comments Basophils (test code = 0.4 See_Comment [Aut omated message] The Basophils) system which ge nerated this result tra nsmitted reference range : <=1.0. The reference r shashi was not used to int erpret this result as normal/abnormal . [facility] [place] RockOrsnatsCRJAGJBECD3768-01-42 08:42:00 Test Item Value Reference Range Interpretation Comments Eosinophils (test code = 1.7 See_Comment [A utomated message] The Eosinophils) system which ge nerated this result tra nsmitted reference range : <=4.0. The reference r shashi was not used to int erpret this result as normal/abnormal . [facility] [place] RockEwrsdfwJKFSQMVKFB2368-52-49 08:42:00 Test Item Value Reference Range Interpretation Comments Lymphocytes (test code = Lymphocytes) 24.8 20.0-40.0 [facility] [place] RockCkyfdjfTOWOVMNHNB4889-86-07 08:42:00 Test Item Value Reference Range Interpretation Comments Segs (test code = Segs) 65.2 45.0-75.0 [facility] [place] RockHrxusxeIKQDEESURQ1395-37-52 08:42:00 Test Item Value Reference Range Interpretation Comments RBC X 10x6 (test code = RBC X 10x6) 5.11 4.70-6.10 [facility] [place] RockJnrvfppGBTEIAJDHR3764-62-99 08:42:00 Test Item Value Reference Range Interpretation Comments Hct (test code = Hct) 36.2 42.0-54.0 [facility] [place] RockAjtdiqkQWYEKUWZQR3551-28-92 08:42:00 Test Item Value Reference Range Interpretation Comments Hgb (test code = Hgb) 11.8 14.0-18.0 [facility] [place] RockMblnxjwGEEYZHHPCY2099-31-52 08:42:00 Test Item Value Reference Range Interpretation Comments Platelet (test code = Platelet) 272 133-450 [facility] [place] RockPptrtbkEIPMBLCJIB1524-46-26 08:42:00 Test Item Value Reference Range Interpretation Comments RDW (test code = RDW) 17.1 11.5-14.5 [facility] [place] RockHxfzstsXFTXPIPDPZ8985-96-21 08:42:00 Test Item Value Reference Range Interpretation Comments MPV (test code = MPV) 7.8 7.4-10.4 [facility] [place] RockIhzpbmqZFIIYWWKJE9163-36-39 08:42:00 Test Item Value Reference Range Interpretation Comments WBC X 10x3 (test code = WBC X 10x3) 9.9 3.7-10.4 [facility] [place] RockKrrxsqoIGWJJBIAMR5086-85-84 08:42:00 Test Item Value Reference Range Interpretation Comments MCHC (test code = MCHC) 32.5 32.0-36.0 [facility] [place] RockRuasqjxWKOQAEMYGG9754-74-52 08:42:00 Test Item Value Reference Range Interpretation Comments MCH (test code = MCH) 23.0 pg 27.0-31.0 [facility] [place] RockWmzrbtnTEFZBZCCLP6180-74-74 08:42:00 Test Item Value Reference Range Interpretation Comments MCV (test code = MCV) 70.8 80.0-94.0 [facility]aultSegrddqZSHZXFLKRKSR9956-92-95 08:42:00 Test Item Value Reference Range Interpretation Comments AGAP (test code = AGAP) 10.8 10.0-20.0 [facility] SaultJltxcmjTSBGZMFRHNUB3572-64-87 08:42:00 Test Item Value Reference Range Interpretation Comments CO2 (test code = CO2) 28 24-32 [facility] SaultXvieaekIPKWCTGTNNZY0733-68-73 08:42:00 Test Item Value Reference Range Interpretation Comments Chloride Lvl (test code = Chloride Lvl) 105 95-109 [facility] SaultThogbzdPEFRLHUYMXQC6656-69-05 08:42:00 Test Item Value Reference Range Interpretation Comments Calcium Lvl (test code = Calcium Lvl) 8.7 8.5-10.5 [facility] SaultGyhjsugVMTRNLRMNULF2885-25-93 08:42:00 Test Item Value Reference Range Interpretation Comments eGFR (test code = eGFR) 103 [facility] SaultWrsnssdEWSZJKDIGLWR6796-54-31 08:42:00 Test Item Value Reference Range Interpretation Comments Glucose Lvl (test code = Glucose Lvl) 123 70-99 [facility] SaultLjswbpvDNEXZWOZTOLD2110-50-23 08:42:00 Test Item Value Reference Range Interpretation Comments Creatinine Lvl (test code = Creatinine 0.86 0.50-1.40 Lvl) [facility] SaultKxmsbhnFYVXXFDGUSFB3494-14-36 08:42:00 Test Item Value Reference Range Interpretation Comments BUN (test code = BUN) 18 7-22 [facility] SaultXxmmtyeMNLDTFVBZLLW7294-11-82 08:42:00 Test Item Value Reference Range Interpretation Comments Potassium Lvl (test code = Potassium 3.8 3.5-5.1 Lvl) [facility] SaultYunfxqwUIYMMIWZVOYS5278-48-80 08:42:00 Test Item Value Reference Range Interpretation Comments Sodium Lvl (test code = Sodium Lvl) 140 135-145 [facility] [place] RockCldogdaJWKVUTIPJN7326-75-76 08:42:00 Test Item Value Reference Range Interpretation Comments Microcyte (test code = 2+ *ABN*(05/06/16 Microcyte) 2:42 AM) [facility] [place] RockHdyttwkXLNMOGHYKT9532-09-85 08:42:00 Test Item Value Reference Range Interpretation Comments Eosinophils # (test code 0.2 See_Comment [A utomated message] The = Eosinophils #) system whic h generated this result tra nsmitted reference range : <=0.5. The reference r shashi was not used to int erpret this result as normal/abnormal . [facility] [place] RockQdxvexoAKWRAPLAVH4132-33-00 08:42:00 Test Item Value Reference Range Interpretation Comments Monocytes # (test code 0.8 See_Comment [Aut omated message] The = Monocytes #) system which generated this result tra nsmitted reference range : <=0.8. The reference r shashi was not used to int erpret this result as normal/abnormal . [facility] [place] RockAcncrdeOTIMFOWTEK6641-98-06 08:42:00 Test Item Value Reference Range Interpretation Comments Monocytes (test code = Monocytes) 7.9 2.0-12.0 [facility] [place] RockFibjrwoSIKNEBQGNE9314-18-77 08:42:00 Test Item Value Reference Range Interpretation Comments Lymphocytes # (test code = Lymphocytes 2.5 1.0-5.5 #) [facility] [place] RockJjvxcwmQCZIJBEESW4371-90-76 08:42:00 Test Item Value Reference Range Interpretation Comments Segs-Bands # (test code = Segs-Bands #) 6.5 1.5-8.1 [facility] [place] RockBvvftztAWFDGGCEBW4067-10-32 08:42:00 Test Item Value Reference Range Interpretation Comments Basophils (test code = 0.4 See_Comment [Aut omated message] The Basophils) system which ge nerated this result tra nsmitted reference range : <=1.0. The reference r shashi was not used to int erpret this result as normal/abnormal . [facility] [place] RockVibptqhUXEJNDGJOG7485-48-23 08:42:00 Test Item Value Reference Range Interpretation Comments Eosinophils (test code = 1.7 See_Comment [A utomated message] The Eosinophils) system which ge nerated this result tra nsmitted reference range : <=4.0. The reference r shashi was not used to int erpret this result as normal/abnormal . [facility] [place] RockUvjsfpyZUJSZDACSH5764-60-62 08:42:00 Test Item Value Reference Range Interpretation Comments Lymphocytes (test code = Lymphocytes) 24.8 20.0-40.0 [facility] [place] RockCeqlxsrLBOAESHYPR9341-36-42 08:42:00 Test Item Value Reference Range Interpretation Comments Segs (test code = Segs) 65.2 45.0-75.0 [facility] [place] RockIarugqiKPYMEQZJQO6894-11-00 08:42:00 Test Item Value Reference Range Interpretation Comments RBC X 10x6 (test code = RBC X 10x6) 5.11 4.70-6.10 [facility] [place] RockHvagvizVYXLJLHQKP2983-77-68 08:42:00 Test Item Value Reference Range Interpretation Comments Hct (test code = Hct) 36.2 42.0-54.0 [facility] [place] RockBcqjoymXUSWSOTMBM6872-41-38 08:42:00 Test Item Value Reference Range Interpretation Comments Hgb (test code = Hgb) 11.8 14.0-18.0 [facility] [place] RockPtzkgtfADWTMJIKGD9984-33-85 08:42:00 Test Item Value Reference Range Interpretation Comments Platelet (test code = Platelet) 272 133-450 [facility] [place] RockBwizywkTDYQEZJKFQ5979-68-64 08:42:00 Test Item Value Reference Range Interpretation Comments RDW (test code = RDW) 17.1 11.5-14.5 [facility] [place] RockDdtmemnBAJHPOGARX5117-32-42 08:42:00 Test Item Value Reference Range Interpretation Comments MPV (test code = MPV) 7.8 7.4-10.4 [facility] [place] RockQanmpqeYCQGBGXGZX6804-97-15 08:42:00 Test Item Value Reference Range Interpretation Comments WBC X 10x3 (test code = WBC X 10x3) 9.9 3.7-10.4 [facility] [place] RockUzwooquQDOUOSTVPA6715-66-42 08:42:00 Test Item Value Reference Range Interpretation Comments MCHC (test code = MCHC) 32.5 32.0-36.0 [facility] [place] RockYjxdvfkTEBXXRDGVC0142-92-36 08:42:00 Test Item Value Reference Range Interpretation Comments MCH (test code = MCH) 23.0 pg 27.0-31.0 [facility] [place] RockTengpizRSHBTDHEAD7591-74-41 08:42:00 Test Item Value Reference Range Interpretation Comments MCV (test code = MCV) 70.8 80.0-94.0 [facility]aultDxpkyprHDEPNGCGMRJB9710-84-29 08:42:00 Test Item Value Reference Range Interpretation Comments AGAP (test code = AGAP) 10.8 10.0-20.0 [facility] SaultMsqubxrKTSSDGXAHRSQ3542-71-61 08:42:00 Test Item Value Reference Range Interpretation Comments CO2 (test code = CO2) 28 24-32 [facility] SaultOelygbpUOFFQBQUICEW8551-98-16 08:42:00 Test Item Value Reference Range Interpretation Comments Chloride Lvl (test code = Chloride Lvl) 105 95-109 [facility] SaultIxcijdwVCBTDCHSTJSG2739-42-36 08:42:00 Test Item Value Reference Range Interpretation Comments Calcium Lvl (test code = Calcium Lvl) 8.7 8.5-10.5 [facility] SaultDdjdlpjIGKUPNPVWCXV8422-39-99 08:42:00 Test Item Value Reference Range Interpretation Comments eGFR (test code = eGFR) 103 [facility] SaultAbozenkWSWWJZAEUNNO2101-60-54 08:42:00 Test Item Value Reference Range Interpretation Comments Glucose Lvl (test code = Glucose Lvl) 123 70-99 [facility] SaultNngjaqkBSIELQBXEDXE8467-92-15 08:42:00 Test Item Value Reference Range Interpretation Comments Creatinine Lvl (test code = Creatinine 0.86 0.50-1.40 Lvl) [facility] SaultRofnyioJSDOBYVUINMK5272-39-86 08:42:00 Test Item Value Reference Range Interpretation Comments BUN (test code = BUN) 18 7-22 [facility] SaultLanjxqeJCYXCFWKYPAE0027-59-31 08:42:00 Test Item Value Reference Range Interpretation Comments Potassium Lvl (test code = Potassium 3.8 3.5-5.1 Lvl) [facility]NiyqfgwYFTJVQSGAISA2866-71-56 08:42:00 Test Item Value Reference Range Interpretation Comments Sodium Lvl (test code = Sodium Lvl) 140 135-145 [facility] [place] RockEvkhoqaKOXTFPGZXG1534-75-11 08:42:00 Test Item Value Reference Range Interpretation Comments Microcyte (test code = 2+ *ABN*(05/06/16 Microcyte) 2:42 AM) [facility] [place] RockImnikikDAIHNGLLUO5237-40-91 08:42:00 Test Item Value Reference Range Interpretation Comments Eosinophils # (test code 0.2 See_Comment [A utomated message] The = Eosinophils #) system whic h generated this result tra nsmitted reference range : <=0.5. The reference r shashi was not used to int erpret this result as normal/abnormal . [facility] [place] RockBsxmsfdFUFAYWPWAH9905-93-92 08:42:00 Test Item Value Reference Range Interpretation Comments Monocytes # (test code 0.8 See_Comment [Aut omated message] The = Monocytes #) system which generated this result tra nsmitted reference range : <=0.8. The reference r shashi was not used to int erpret this result as normal/abnormal . [facility] [place] RockPruferyFGAQCTODNP0775-06-56 08:42:00 Test Item Value Reference Range Interpretation Comments Monocytes (test code = Monocytes) 7.9 2.0-12.0 [facility] [place] RockJwvkmgyNZUAMGLRQY5627-02-75 08:42:00 Test Item Value Reference Range Interpretation Comments Lymphocytes # (test code = Lymphocytes 2.5 1.0-5.5 #) [facility] [place] RockWzgfjwrLNJIACXMAW3741-43-05 08:42:00 Test Item Value Reference Range Interpretation Comments Segs-Bands # (test code = Segs-Bands #) 6.5 1.5-8.1 [facility] [place] RockKvvptziAESRURNDTT8601-90-12 08:42:00 Test Item Value Reference Range Interpretation Comments Basophils (test code = 0.4 See_Comment [Aut omated message] The Basophils) system which ge nerated this result tra nsmitted reference range : <=1.0. The reference r shashi was not used to int erpret this result as normal/abnormal . [facility] RockSuuzhpjOEGVGJSSBN2852-89-26 08:42:00 Test Item Value Reference Range Interpretation Comments Eosinophils (test code = 1.7 See_Comment [A utomated message] The Eosinophils) system which ge nerated this result tra nsmitted reference range : <=4.0. The reference r shashi was not used to int erpret this result as normal/abnormal . [facility] RockHuxhdbjZZINCYNESJ9910-68-61 08:42:00 Test Item Value Reference Range Interpretation Comments Lymphocytes (test code = Lymphocytes) 24.8 20.0-40.0 [facility] RockBvdaebiIZVTAEEOHF7008-18-08 08:42:00 Test Item Value Reference Range Interpretation Comments Segs (test code = Segs) 65.2 45.0-75.0 [facility] RockVjqdvayPGOYGUVBOT1751-63-75 08:42:00 Test Item Value Reference Range Interpretation Comments RBC X 10x6 (test code = RBC X 10x6) 5.11 4.70-6.10 [facility] RockUypfaycNYFXSVFRGB0743-30-99 08:42:00 Test Item Value Reference Range Interpretation Comments Hct (test code = Hct) 36.2 42.0-54.0 [facility] RockQlxbsbsCPMLZULHIF7163-78-07 08:42:00 Test Item Value Reference Range Interpretation Comments Hgb (test code = Hgb) 11.8 14.0-18.0 [facility] RockRpjyvxjYMBJOXTPTQ8513-92-88 08:42:00 Test Item Value Reference Range Interpretation Comments Platelet (test code = Platelet) 272 133-450 [facility] RockCtmmatdVADREVWMTQ3831-10-87 08:42:00 Test Item Value Reference Range Interpretation Comments RDW (test code = RDW) 17.1 11.5-14.5 [facility] RockIgzigoxELTMDHCQNK2964-80-33 08:42:00 Test Item Value Reference Range Interpretation Comments MPV (test code = MPV) 7.8 7.4-10.4 [facility] RockBiwvyytZPTOJUWFFE9778-10-51 08:42:00 Test Item Value Reference Range Interpretation Comments WBC X 10x3 (test code = WBC X 10x3) 9.9 3.7-10.4 [facility] RockGhjecacWDZOPJEYCX5040-39-10 08:42:00 Test Item Value Reference Range Interpretation Comments MCHC (test code = MCHC) 32.5 32.0-36.0 [facility] RockLbjjlygGPIQTDCJAX3909-22-92 08:42:00 Test Item Value Reference Range Interpretation Comments MCH (test code = MCH) 23.0 pg 27.0-31.0 [facility] RockWqthgniTZJCYSLDGL7949-70-46 08:42:00 Test Item Value Reference Range Interpretation Comments MCV (test code = MCV) 70.8 80.0-94.0 [facility] RockNlordaxTOVFFWDIEE0790-72-85 08:20:00 Test Item Value Reference Range Interpretation Comments PROTIME (test code = PROTIME) 13.4 s 12.0-14.7 [facility] RockNlrncxvXGOINHCQHB6960-82-00 08:20:00 Test Item Value Reference Range Interpretation Comments INR (test code = INR) 1.00 0.85-1.17 [facility] RockPicddwmNHIIGMQOLV2431-18-44 08:20:00 Test Item Value Reference Range Interpretation Comments aPTT (test code = aPTT) 49.1 s 22.9-35.8 [facility] RockNqcburrDUPERBBZYL0907-92-81 08:20:00 Test Item Value Reference Range Interpretation Comments PROTIME (test code = PROTIME) 13.4 s 12.0-14.7 [facility] RockTfrtmefQDMFPWTCHY2462-97-76 08:20:00 Test Item Value Reference Range Interpretation Comments INR (test code = INR) 1.00 0.85-1.17 [facility] RockNksxnooWKZDUXEEGB9347-34-60 08:20:00 Test Item Value Reference Range Interpretation Comments aPTT (test code = aPTT) 49.1 s 22.9-35.8 [facility] RockXtupymkXDKKZVILGO1409-15-88 08:20:00 Test Item Value Reference Range Interpretation Comments PROTIME (test code = PROTIME) 13.4 s 12.0-14.7 [facility] RockKezqdadJXQNPIHRVB5515-40-71 08:20:00 Test Item Value Reference Range Interpretation Comments INR (test code = INR) 1.00 0.85-1.17 [facility] RockBpzhlhbHRVWZZURLG6587-53-17 08:20:00 Test Item Value Reference Range Interpretation Comments aPTT (test code = aPTT) 49.1 s 22.9-35.8 [facility] AND [id number] 04:09:00 Test Item Value Reference Range Interpretation Comments UA Bacteria (test code = None Seen (05/05/16 UA Bacteria) 10:09 PM) [facility] AND [id number] 04:09:00 Test Item Value Reference Range Interpretation Comments UA Blood (test code = Negative (05/05/16 10:09 UA Blood) PM) [facility] AND [id number] 04:09:00 Test Item Value Reference Range Interpretation Comments UA RBC (test code = 0-2 /HPF See_Comment [Automa vale message] The UA RBC) system which ge nerated this result tra nsmitted reference range : <=2. The reference range was not used to interpr et this result as olivia l/abnormal. [facility] AND [id number] 04:09:00 Test Item Value Reference Range Interpretation Comments UA WBC (test code = UA None Seen (05/05/16 WBC) 10:09 PM) [facility] AND [id number] 04:09:00 Test Item Value Reference Range Interpretation Comments UA Sq Epi (test code = None Seen (05/05/16 UA Sq Epi) 10:09 PM) [facility] AND [id number] 04:09:00 Test Item Value Reference Range Interpretation Comments UA Leuk Est (test Negative (05/05/16 10:09 code = UA Leuk Est) PM) [facility] AND [id number] 04:09:00 Test Item Value Reference Range Interpretation Comments UA Urobilinogen (test code = UA 0.2 0.1-1.0 Urobilinogen) [facility] AND [id number] 04:09:00 Test Item Value Reference Range Interpretation Comments UA Nitrite (test code Negative (05/05/16 = UA Nitrite) 10:09 PM) [facility] AND [id number] 04:09:00 Test Item Value Reference Range Interpretation Comments UA Color (test code = Yellow *NA*(05/05/16 UA Color) 10:09 PM) [facility] AND [id number] 04:09:00 Test Item Value Reference Range Interpretation Comments UA Glucose (test code Negative (05/05/16 = UA Glucose) 10:09 PM) [facility] AND [id number] 04:09:00 Test Item Value Reference Range Interpretation Comments UA Bili (test code = Negative *NA*(05/05/16 UA Bili) 10:09 PM) [facility] AND [id number] 04:09:00 Test Item Value Reference Range Interpretation Comments UA Ketones (test code Negative *NA*(05/05/16 = UA Ketones) 10:09 PM) [facility] AND [id number] 04:09:00 Test Item Value Reference Range Interpretation Comments UA Protein (test code Negative (05/05/16 = UA Protein) 10:09 PM) [facility] AND [id number] 04:09:00 Test Item Value Reference Range Interpretation Comments UA pH (test code = UA pH) 6.0 1 5.0-8.0 [facility] AND [id number] 04:09:00 Test Item Value Reference Range Interpretation Comments UA Turbidity (test code = Clear (05/05/16 UA Turbidity) 10:09 PM) [facility] AND [id number] 04:09:00 Test Item Value Reference Range Interpretation Comments UA Spec Grav (test >=1.030 *ABN*(05/05/16 code = UA Spec Grav) 10:09 PM) [facility] AND [id number] 04:09:00 Test Item Value Reference Range Interpretation Comments UA Bacteria (test code = None Seen (05/05/16 UA Bacteria) 10:09 PM) [facility] AND [id number] 04:09:00 Test Item Value Reference Range Interpretation Comments UA Blood (test code = Negative (05/05/16 10:09 UA Blood) PM) [facility] AND [id number] 04:09:00 Test Item Value Reference Range Interpretation Comments UA RBC (test code = 0-2 /HPF See_Comment [Automa vale message] The UA RBC) system which ge nerated this result tra nsmitted reference range : <=2. The reference range was not used to interpr et this result as olivia l/abnormal. [facility] AND [id number] 04:09:00 Test Item Value Reference Range Interpretation Comments UA WBC (test code = UA None Seen (05/05/16 WBC) 10:09 PM) [facility] AND [id number] 04:09:00 Test Item Value Reference Range Interpretation Comments UA Sq Epi (test code = None Seen (05/05/16 UA Sq Epi) 10:09 PM) [facility] AND [id number] 04:09:00 Test Item Value Reference Range Interpretation Comments UA Leuk Est (test Negative (05/05/16 10:09 code = UA Leuk Est) PM) [facility] AND [id number] 04:09:00 Test Item Value Reference Range Interpretation Comments UA Urobilinogen (test code = UA 0.2 0.1-1.0 Urobilinogen) [facility] AND [id number] 04:09:00 Test Item Value Reference Range Interpretation Comments UA Nitrite (test code Negative (05/05/16 = UA Nitrite) 10:09 PM) [facility] AND [id number] 04:09:00 Test Item Value Reference Range Interpretation Comments UA Color (test code = Yellow *NA*(05/05/16 UA Color) 10:09 PM) [facility] AND [id number] 04:09:00 Test Item Value Reference Range Interpretation Comments UA Glucose (test code Negative (05/05/16 = UA Glucose) 10:09 PM) [facility] AND [id number] 04:09:00 Test Item Value Reference Range Interpretation Comments UA Bili (test code = Negative *NA*(05/05/16 UA Bili) 10:09 PM) [facility] AND [id number] 04:09:00 Test Item Value Reference Range Interpretation Comments UA Ketones (test code Negative *NA*(05/05/16 = UA Ketones) 10:09 PM) [facility] AND [id number] 04:09:00 Test Item Value Reference Range Interpretation Comments UA Protein (test code Negative (05/05/16 = UA Protein) 10:09 PM) [facility] AND [id number] 04:09:00 Test Item Value Reference Range Interpretation Comments UA pH (test code = UA pH) 6.0 1 5.0-8.0 [facility] AND [id number] 04:09:00 Test Item Value Reference Range Interpretation Comments UA Turbidity (test code = Clear (05/05/16 UA Turbidity) 10:09 PM) [facility] AND [id number] 04:09:00 Test Item Value Reference Range Interpretation Comments UA Spec Grav (test >=1.030 *ABN*(05/05/16 code = UA Spec Grav) 10:09 PM) [facility] AND [id number] 04:09:00 Test Item Value Reference Range Interpretation Comments UA Bacteria (test code = None Seen (05/05/16 UA Bacteria) 10:09 PM) [facility] AND [id number] 04:09:00 Test Item Value Reference Range Interpretation Comments UA Blood (test code = Negative (05/05/16 10:09 UA Blood) PM) [facility] AND [id number] 04:09:00 Test Item Value Reference Range Interpretation Comments UA RBC (test code = 0-2 /HPF See_Comment [Automa vale message] The UA RBC) system which ge nerated this result tra nsmitted reference range : <=2. The reference range was not used to interpr et this result as olivia l/abnormal. [facility] AND [id number] 04:09:00 Test Item Value Reference Range Interpretation Comments UA WBC (test code = UA None Seen (05/05/16 WBC) 10:09 PM) [facility] AND [id number] 04:09:00 Test Item Value Reference Range Interpretation Comments UA Sq Epi (test code = None Seen (05/05/16 UA Sq Epi) 10:09 PM) [facility] AND [id number] 04:09:00 Test Item Value Reference Range Interpretation Comments UA Leuk Est (test Negative (05/05/16 10:09 code = UA Leuk Est) PM) [facility] AND [id number] 04:09:00 Test Item Value Reference Range Interpretation Comments UA Urobilinogen (test code = UA 0.2 0.1-1.0 Urobilinogen) [facility] AND [id number] 04:09:00 Test Item Value Reference Range Interpretation Comments UA Nitrite (test code Negative (05/05/16 = UA Nitrite) 10:09 PM) [facility] AND [id number] 04:09:00 Test Item Value Reference Range Interpretation Comments UA Color (test code = Yellow *NA*(05/05/16 UA Color) 10:09 PM) [facility] AND [id number] 04:09:00 Test Item Value Reference Range Interpretation Comments UA Glucose (test code Negative (11/13/16 = UA Glucose) 10:09 PM) [facility] AND [id number] 04:09:00 Test Item Value Reference Range Interpretation Comments UA Bili (test code = Negative *NA*(05/05/16 UA Bili) 10:09 PM) [facility] AND [id number] 04:09:00 Test Item Value Reference Range Interpretation Comments UA Ketones (test code Negative *NA*(05/05/16 = UA Ketones) 10:09 PM) [facility] AND [id number] 04:09:00 Test Item Value Reference Range Interpretation Comments UA Protein (test code Negative (05/05/16 = UA Protein) 10:09 PM) [facility] AND [id number] 04:09:00 Test Item Value Reference Range Interpretation Comments UA pH (test code = UA pH) 6.0 1 5.0-8.0 [facility] AND [id number] 04:09:00 Test Item Value Reference Range Interpretation Comments UA Turbidity (test code = Clear (05/05/16 UA Turbidity) 10:09 PM) [facility] AND [id number] 04:09:00 Test Item Value Reference Range Interpretation Comments UA Spec Grav (test >=1.030 *ABN*(05/05/16 code = UA Spec Grav) 10:09 PM) [facility] [id number] 04:06:00 Test Item Value Reference Range Interpretation Comments MRSA by PCR (test Negative (05/05/16 10:06 code = MRSA by PCR) PM) [facility] [id number] 04:06:00 Test Item Value Reference Range Interpretation Comments MRSA by PCR (test Negative (05/05/16 10:06 code = MRSA by PCR) PM) [facility] [id number] 04:06:00 Test Item Value Reference Range Interpretation Comments MRSA by PCR (test Negative (05/05/16 10:06 code = MRSA by PCR) PM) [id number] 03:38:00 Test Item Value Reference Range Interpretation Comments Basophils # (test code 0.1 See_Comment [Aut omated message] The = Basophils #) system which generated this result tra nsmitted reference range : <=0.2. The reference r shashi was not used to int erpret this result as normal/abnormal . [facility] RockShsmsosLLMTAKYCTK9308-89-04 03:38:00 Test Item Value Reference Range Interpretation Comments Microcyte (test code = 2+ *ABN*(05/05/16 Microcyte) 9:38 PM) [facility] RockGukuwzlTWIHIHKVLH2954-29-12 03:38:00 Test Item Value Reference Range Interpretation Comments Eosinophils (test code = 1.4 See_Comment [A utomated message] The Eosinophils) system which ge nerated this result tra nsmitted reference range : <=4.0. The reference r shashi was not used to int erpret this result as normal/abnormal . [facility] [id number] 03:38:00 Test Item Value Reference Range Interpretation Comments Basophils (test code = 0.7 See_Comment [Aut omated message] The Basophils) system which ge nerated this result tra nsmitted reference range : <=1.0. The reference r shashi was not used to int erpret this result as normal/abnormal . [facility] RockCwwwkrwCSXQKVKEVH5012-21-61 03:38:00 Test Item Value Reference Range Interpretation Comments Segs-Bands # (test code = Segs-Bands #) 7.1 1.5-8.1 [facility] RockLuydxnnIFGCDXQOEW4101-06-41 03:38:00 Test Item Value Reference Range Interpretation Comments Lymphocytes (test code = Lymphocytes) 24.8 20.0-40.0 [facility] RockWaifkjdIPPITMMUUJ3954-65-09 03:38:00 Test Item Value Reference Range Interpretation Comments Monocytes (test code = Monocytes) 7.9 2.0-12.0 [facility] RockTvywaoqOEHMXSVFBC9718-73-21 03:38:00 Test Item Value Reference Range Interpretation Comments Monocytes # (test code 0.9 See_Comment [Aut omated message] The = Monocytes #) system which generated this result tra nsmitted reference range : <=0.8. The reference r shashi was not used to int erpret this result as normal/abnormal . [facility] RockYtitjbfPDRKGPXHOI6280-27-81 03:38:00 Test Item Value Reference Range Interpretation Comments Eosinophils # (test code 0.2 See_Comment [A utomated message] The = Eosinophils #) system whic h generated this result tra nsmitted reference range : <=0.5. The reference r shashi was not used to int erpret this result as normal/abnormal . [facility] RockLmmpdspCYXBXUJFRI3190-69-57 03:38:00 Test Item Value Reference Range Interpretation Comments Lymphocytes # (test code = Lymphocytes 2.7 1.0-5.5 #) [facility] RockTmtdhleNGPHDJMKMP1401-92-96 03:38:00 Test Item Value Reference Range Interpretation Comments Segs (test code = Segs) 65.2 45.0-75.0 [facility] RockHhezkckGDAAQOKEMX5725-38-87 03:38:00 Test Item Value Reference Range Interpretation Comments MCV (test code = MCV) 69.7 80.0-94.0 [facility] RockQbyijweSVGPAJQCLR1008-26-31 03:38:00 Test Item Value Reference Range Interpretation Comments MCH (test code = MCH) 23.3 pg 27.0-31.0 [facility] RockNkvhwbdXEUBADKIPK8422-75-25 03:38:00 Test Item Value Reference Range Interpretation Comments Hgb (test code = Hgb) 12.2 14.0-18.0 [facility] RockZybncgyJNBZLFERDR4311-14-61 03:38:00 Test Item Value Reference Range Interpretation Comments Hct (test code = Hct) 36.5 42.0-54.0 [facility] RockLabkyuxPIBDEFPORY0223-74-52 03:38:00 Test Item Value Reference Range Interpretation Comments MCHC (test code = MCHC) 33.4 32.0-36.0 [facility] RockRwvoubtHRKHVROBZK7885-18-39 03:38:00 Test Item Value Reference Range Interpretation Comments Platelet (test code = Platelet) 276 133-450 [facility] RockMucvvnfUBROBLETUB6872-78-72 03:38:00 Test Item Value Reference Range Interpretation Comments MPV (test code = MPV) 7.2 7.4-10.4 [facility] RockZwzwxidLRVVHGFOTC1253-17-12 03:38:00 Test Item Value Reference Range Interpretation Comments RDW (test code = RDW) 17.5 11.5-14.5 [facility] RockLeqghisDCWDQCKHRL0875-30-34 03:38:00 Test Item Value Reference Range Interpretation Comments WBC X 10x3 (test code = WBC X 10x3) 11.0 3.7-10.4 [facility] RockLdvxzxuHHBHNSOYNP2466-37-08 03:38:00 Test Item Value Reference Range Interpretation Comments RBC X 10x6 (test code = RBC X 10x6) 5.24 4.70-6.10 [facility] RockZiypvlzMXTCWEEBTA3659-28-47 03:38:00 Test Item Value Reference Range Interpretation Comments Basophils # (test code 0.1 See_Comment [Aut omated message] The = Basophils #) system which generated this result tra nsmitted reference range : <=0.2. The reference r shashi was not used to int erpret this result as normal/abnormal . [facility] RockPyttobpEZXSFHPUYK6722-87-96 03:38:00 Test Item Value Reference Range Interpretation Comments Microcyte (test code = 2+ *ABN*(05/05/16 Microcyte) 9:38 PM) [facility] RockYyrduhzZNSRPKWDCC4511-47-25 03:38:00 Test Item Value Reference Range Interpretation Comments Eosinophils (test code = 1.4 See_Comment [A utomated message] The Eosinophils) system which ge nerated this result tra nsmitted reference range : <=4.0. The reference r shashi was not used to int erpret this result as normal/abnormal . [facility] RockUymimisCEJZSNHARN3426-21-63 03:38:00 Test Item Value Reference Range Interpretation Comments Basophils (test code = 0.7 See_Comment [Aut omated message] The Basophils) system which ge nerated this result tra nsmitted reference range : <=1.0. The reference r shashi was not used to int erpret this result as normal/abnormal . [facility] RockGubweprGRJZHXLPUH9926-03-01 03:38:00 Test Item Value Reference Range Interpretation Comments Segs-Bands # (test code = Segs-Bands #) 7.1 1.5-8.1 [facility] RockAgoascoPYUEYFVEZI8701-65-12 03:38:00 Test Item Value Reference Range Interpretation Comments Lymphocytes (test code = Lymphocytes) 24.8 20.0-40.0 [facility] RockHpvoagxODFDBKXACI4486-78-79 03:38:00 Test Item Value Reference Range Interpretation Comments Monocytes (test code = Monocytes) 7.9 2.0-12.0 [facility] RockJavjtorJRVIEIELHD6095-08-18 03:38:00 Test Item Value Reference Range Interpretation Comments Monocytes # (test code 0.9 See_Comment [Aut omated message] The = Monocytes #) system which generated this result tra nsmitted reference range : <=0.8. The reference r shashi was not used to int erpret this result as normal/abnormal . [facility] RockUpmjkwfKKJXEPXLWY6719-39-79 03:38:00 Test Item Value Reference Range Interpretation Comments Eosinophils # (test code 0.2 See_Comment [A utomated message] The = Eosinophils #) system whic h generated this result tra nsmitted reference range : <=0.5. The reference r shashi was not used to int erpret this result as normal/abnormal . [facility] RockXbofirmYPMKUSBAGK3967-19-06 03:38:00 Test Item Value Reference Range Interpretation Comments Lymphocytes # (test code = Lymphocytes 2.7 1.0-5.5 #) [facility] RockPlbuqkqJSSJFLIBDP9934-12-43 03:38:00 Test Item Value Reference Range Interpretation Comments Segs (test code = Segs) 65.2 45.0-75.0 [facility] RockSyzyjugYCBCBICDXU1177-82-67 03:38:00 Test Item Value Reference Range Interpretation Comments MCV (test code = MCV) 69.7 80.0-94.0 [facility] RockShzufhkCXXWHDFLMY2388-06-35 03:38:00 Test Item Value Reference Range Interpretation Comments MCH (test code = MCH) 23.3 pg 27.0-31.0 [facility] RockGmvgfmuTSBLSOVOMP3936-59-56 03:38:00 Test Item Value Reference Range Interpretation Comments Hgb (test code = Hgb) 12.2 14.0-18.0 [facility] RockXoijlptKMKEQEVMKG0850-40-88 03:38:00 Test Item Value Reference Range Interpretation Comments Hct (test code = Hct) 36.5 42.0-54.0 [facility] RockQjoqhxoZTWSVQGHSR9922-94-88 03:38:00 Test Item Value Reference Range Interpretation Comments MCHC (test code = MCHC) 33.4 32.0-36.0 [facility] RockEntvehtCSRXEGSPOT9264-47-87 03:38:00 Test Item Value Reference Range Interpretation Comments Platelet (test code = Platelet) 276 133-450 [facility] RockEenojqqSAWABAZEOA1530-28-91 03:38:00 Test Item Value Reference Range Interpretation Comments MPV (test code = MPV) 7.2 7.4-10.4 [facility] RockGigbsijXSVAULRTUU8023-23-74 03:38:00 Test Item Value Reference Range Interpretation Comments RDW (test code = RDW) 17.5 11.5-14.5 [facility] RockMcvgnrvAWIQIUYPWH6996-22-49 03:38:00 Test Item Value Reference Range Interpretation Comments WBC X 10x3 (test code = WBC X 10x3) 11.0 3.7-10.4 [facility] RockXkfulziAVFUJEDHWL0244-89-70 03:38:00 Test Item Value Reference Range Interpretation Comments RBC X 10x6 (test code = RBC X 10x6) 5.24 4.70-6.10 [facility] RockTtgdgubLFWHPFLMXG9534-62-86 03:38:00 Test Item Value Reference Range Interpretation Comments Basophils # (test code 0.1 See_Comment [Aut omated message] The = Basophils #) system which generated this result tra nsmitted reference range : <=0.2. The reference r shashi was not used to int erpret this result as normal/abnormal . [facility] RockTynvyynFJUBCTGSFO2497-00-52 03:38:00 Test Item Value Reference Range Interpretation Comments Microcyte (test code = 2+ *ABN*(05/05/16 Microcyte) 9:38 PM) [facility] [facility]KlmfcpsYYFQWUZHLC1822-89-04 03:38:00 Test Item Value Reference Range Interpretation Comments Eosinophils (test code = 1.4 See_Comment [A utomated message] The Eosinophils) system which ge nerated this result tra nsmitted reference range : <=4.0. The reference r shashi was not used to int erpret this result as normal/abnormal . [facility] RockDrxybzrBYGUOFUNMB0296-37-52 03:38:00 Test Item Value Reference Range Interpretation Comments Basophils (test code = 0.7 See_Comment [Aut omated message] The Basophils) system which ge nerated this result tra nsmitted reference range : <=1.0. The reference r shashi was not used to int erpret this result as normal/abnormal . [facility] RockVokwygtBUNXRZKMII1508-29-38 03:38:00 Test Item Value Reference Range Interpretation Comments Segs-Bands # (test code = Segs-Bands #) 7.1 1.5-8.1 [facility] RockJidouvnXBJGSGCAIF9028-02-16 03:38:00 Test Item Value Reference Range Interpretation Comments Lymphocytes (test code = Lymphocytes) 24.8 20.0-40.0 [facility] RockNarikkmGGRUHPDAWC0544-15-90 03:38:00 Test Item Value Reference Range Interpretation Comments Monocytes (test code = Monocytes) 7.9 2.0-12.0 [facility] RockDcoypnyCVICJNMUKV4048-17-13 03:38:00 Test Item Value Reference Range Interpretation Comments Monocytes # (test code 0.9 See_Comment [Aut omated message] The = Monocytes #) system which generated this result tra nsmitted reference range : <=0.8. The reference r shashi was not used to int erpret this result as normal/abnormal . [facility] RockKgtxnnrGQAPSLCRTX3179-79-71 03:38:00 Test Item Value Reference Range Interpretation Comments Eosinophils # (test code 0.2 See_Comment [A utomated message] The = Eosinophils #) system whic h generated this result tra nsmitted reference range : <=0.5. The reference r shashi was not used to int erpret this result as normal/abnormal . [facility] RockQtduowhJJNOCGZRFU3720-02-46 03:38:00 Test Item Value Reference Range Interpretation Comments Lymphocytes # (test code = Lymphocytes 2.7 1.0-5.5 #) [facility] RockDnxwtzaSPLFYWJDQY7716-41-81 03:38:00 Test Item Value Reference Range Interpretation Comments Segs (test code = Segs) 65.2 45.0-75.0 [facility] RockBfmgrozJGQKXUXUVE8383-03-51 03:38:00 Test Item Value Reference Range Interpretation Comments MCV (test code = MCV) 69.7 80.0-94.0 [facility] RockJxulxsnPAALUCVJGF4018-54-20 03:38:00 Test Item Value Reference Range Interpretation Comments MCH (test code = MCH) 23.3 pg 27.0-31.0 [facility] RockXiqtgphZRGRYQSRQM0901-61-96 03:38:00 Test Item Value Reference Range Interpretation Comments Hgb (test code = Hgb) 12.2 14.0-18.0 [facility] RockSvfkdwtTXAPQIGLWX2590-89-22 03:38:00 Test Item Value Reference Range Interpretation Comments Hct (test code = Hct) 36.5 42.0-54.0 [facility] RockHiygiowKPOUXMVIIN7013-14-76 03:38:00 Test Item Value Reference Range Interpretation Comments MCHC (test code = MCHC) 33.4 32.0-36.0 [facility] RockSzrbzodKPQIJACHOZ0281-57-42 03:38:00 Test Item Value Reference Range Interpretation Comments Platelet (test code = Platelet) 276 718-450 [facility] RockZqbjoqwSFQVRYNMIT0090-76-27 03:38:00 Test Item Value Reference Range Interpretation Comments MPV (test code = MPV) 7.2 7.4-10.4 [facility] RockApwnnrxWREOYCZAFQ4870-92-07 03:38:00 Test Item Value Reference Range Interpretation Comments RDW (test code = RDW) 17.5 11.5-14.5 [facility] RockReofzxzKGRRCSNMIG4822-64-51 03:38:00 Test Item Value Reference Range Interpretation Comments WBC X 10x3 (test code = WBC X 10x3) 11.0 3.7-10.4 [facility] RockNwcazggQDEJSASRRM1385-63-75 03:38:00 Test Item Value Reference Range Interpretation Comments RBC X 10x6 (test code = RBC X 10x6) 5.24 4.70-6.10 [facility] RockGzmmtspFDQHMWURZJ6311-27-18 01:53:00 Test Item Value Reference Range Interpretation Comments INR (test code = INR) 1.05 0.85-1.17 [facility] RockLcxvpagCLQQQWTFUL9906-38-34 01:53:00 Test Item Value Reference Range Interpretation Comments PROTIME (test code = PROTIME) 13.9 s 12.0-14.7 [facility] RockOlqqhaoZDCFPROUVS7657-88-35 01:53:00 Test Item Value Reference Range Interpretation Comments aPTT (test code = aPTT) 35.3 s 22.9-35.8 [facility] RockDecmzoxUFBWIQWFQC9028-82-83 01:53:00 Test Item Value Reference Range Interpretation Comments INR (test code = INR) 1.05 0.85-1.17 [facility] RockFmgnqhcXOXPDGSACD3617-02-28 01:53:00 Test Item Value Reference Range Interpretation Comments PROTIME (test code = PROTIME) 13.9 s 12.0-14.7 [facility] RockQyogmvfPZHUNHBLGJ5873-72-16 01:53:00 Test Item Value Reference Range Interpretation Comments aPTT (test code = aPTT) 35.3 s 22.9-35.8 [facility] RockRwfhicpKSQZPEPZZU2791-91-25 01:53:00 Test Item Value Reference Range Interpretation Comments INR (test code = INR) 1.05 0.85-1.17 [facility] RockVqkczdzDQHQMJRPUG1148-59-37 01:53:00 Test Item Value Reference Range Interpretation Comments PROTIME (test code = PROTIME) 13.9 s 12.0-14.7 [facility] AreaFeyxqmwVUYBVHUGCM4828-57-44 01:53:00 Test Item Value Reference Range Interpretation Comments aPTT (test code = aPTT) 35.3 s 22.9-35.8 [facility]annCARAC PYWVXLD1003-31-73 23:11:00 Test Item Value Reference Range Interpretation Comments CK-MB INDEX (test 1.0 See_Comment [Automate d message] The code = CK-MB INDEX) system w [facility] generated this result transmit vale reference range : <=2.5. The reference range was not used to interpr et this result as olivia l/abnormal. [facility] MJJSFSO0416-62-80 23:11:00 Test Item Value Reference Range Interpretation Comments CK MB (test code = CK MB) 0.8 0.5-3.6 [facility] VYWKHMU0602-92-72 23:11:00 Test Item Value Reference Range Interpretation Comments Total CK (test code = Total CK) 80 12-191 [facility] IHGYWQE2346-26-57 23:11:00 Test Item Value Reference Range Interpretation Comments Troponin-I (test code no gt See_Comment [Auto mated message] The = Troponin-I) system which g enerated this result transmit vale reference range : <=0.40. The reference r shashi was not used to interpr et this result as olivia l/abnormal. [facility] [employer] EZLZO4451-97-43 23:11:00 Test Item Value Reference Range Interpretation Comments Alk Phos (test code = Alk Phos) 133 39-136 [facility] EEEYQ8356-47-76 23:11:00 Test Item Value Reference Range Interpretation Comments Glucose Lvl (test code = Glucose Lvl) 137 70-99 [facility] VGHGL6430-30-29 23:11:00 Test Item Value Reference Range Interpretation Comments BUN (test code = BUN) 17 7-22 [facility] NYAOX4601-50-71 23:11:00 Test Item Value Reference Range Interpretation Comments Creatinine Lvl (test code = Creatinine 1.01 0.50-1.40 Lvl) [facility] VJFWA7171-18-19 23:11:00 Test Item Value Reference Range Interpretation Comments Sodium Lvl (test code = Sodium Lvl) 139 135-145 [facility]2016-11-13 23:11:00 Test Item Value Reference Range Interpretation Comments ALANINE AMINOTRANSFERASE 34 See_Comment [A utomated message] (test code = ALANINE The sys tem which AMINOTRANSFERASE) generated this result transmitted ref erence range: <=65. Th e reference range was not used to int erpret this result as normal/abnormal . [facility]2016-11-13 23:11:00 Test Item Value Reference Range Interpretation Comments Albumin Lvl (test code = Albumin Lvl) 3.3 3.5-5.0 [facility]2016-11-13 23:11:00 Test Item Value Reference Range Interpretation Comments Chloride Lvl (test code = Chloride Lvl) 105 95-109 [facility]2016-11-13 23:11:00 Test Item Value Reference Range Interpretation Comments eGFR (test code = eGFR) 88 [facility]2016-11-13 23:11:00 Test Item Value Reference Range Interpretation Comments Bili Total (test code = Bili Total) 0.4 0.2-1.3 [facility]2016-11-13 23:11:00 Test Item Value Reference Range Interpretation Comments Calcium Lvl (test code = Calcium Lvl) 8.6 8.5-10.5 [facility]2016-11-13 23:11:00 Test Item Value Reference Range Interpretation Comments Potassium Lvl (test code = Potassium 3.7 3.5-5.1 Lvl) [facility]2016-11-13 23:11:00 Test Item Value Reference Range Interpretation Comments CO2 (test code = CO2) 28 24-32 [facility]2016-11-13 23:11:00 Test Item Value Reference Range Interpretation Comments Total Protein (test code = Total 7.8 6.4-8.4 Protein) [facility]2016-11-13 23:11:00 Test Item Value Reference Range Interpretation Comments ASPARTATE TRANSAMINASE 16 See_Comment [Aut omated message] (test code = ASPARTATE The s ystem which TRANSAMINASE) generated this result transmitted ref erence range: <=37. Th e reference range was not used to interpr et this result as normal/abnormal . [facility]2016-11-13 23:11:00 Test Item Value Reference Range Interpretation Comments AGAP (test code = AGAP) 9.7 10.0-20.0 [place] [address]-11-13 23:11:00 Test Item Value Reference Range Interpretation Comments B/C Ratio (test code = B/C Ratio) 17 6-25 [place] 249866-11-13 23:11:00 Test Item Value Reference Range Interpretation Comments Globulin (test code = Globulin) 4.5 2.7-4.2 [place] [address]-11-13 23:11:00 Test Item Value Reference Range Interpretation Comments A/G Ratio (test code = A/G Ratio) 0.7 0.7-1.[address]11-13 23:11:00 Test Item Value Reference Range Interpretation Comments Monocytes # (test code 0.8 See_Comment [Aut omated message] The = Monocytes #) system which generated this result tra nsmitted reference range : <=0.8. The reference r shashi was not used to int erpret this result as normal/abnormal . [facility] RockXkmzmzxXJMKETKHOE8571-33-53 23:11:00 Test Item Value Reference Range Interpretation Comments Eosinophils # (test code 0.1 See_Comment [A utomated message] The = Eosinophils #) system whic h generated this result tra nsmitted reference range : <=0.5. The reference r shashi was not used to int erpret this result as normal/abnormal . [facility] RockOatjnhtPYXZZHYBTI0823-64-41 23:11:00 Test Item Value Reference Range Interpretation Comments Basophils # (test code 0.1 See_Comment [Aut omated message] The = Basophils #) system which generated this result tra nsmitted reference range : <=0.2. The reference r shashi was not used to int erpret this result as normal/abnormal . [facility] RockKpmlbobCFSUKKWYUK1960-56-43 23:11:00 Test Item Value Reference Range Interpretation Comments Microcyte (test code = 2+ *ABN*(05/05/16 Microcyte) 5:11 PM) [facility] RockDneqqevJWEKLEYBQB4500-10-60 23:11:00 Test Item Value Reference Range Interpretation Comments Monocytes (test code = Monocytes) 7.5 2.0-12.0 [facility] RockYebymfqSJPIFNGPMA8767-17-07 23:11:00 Test Item Value Reference Range Interpretation Comments Eosinophils (test code = 1.1 See_Comment [A utomated message] The Eosinophils) system which ge nerated this result tra nsmitted reference range : <=4.0. The reference r shashi was not used to int erpret this result as normal/abnormal . [facility] RockHehmwadNWFCPDEGEP7606-35-79 23:11:00 Test Item Value Reference Range Interpretation Comments Basophils (test code = 0.7 See_Comment [Aut omated message] The Basophils) system which ge nerated this result tra nsmitted reference range : <=1.0. The reference r shashi was not used to int erpret this result as normal/abnormal . [facility] RockDqhiripCPGXEJKXKC4185-49-34 23:11:00 Test Item Value Reference Range Interpretation Comments Segs-Bands # (test code = Segs-Bands #) 7.5 1.5-8.1 [facility] RockKxtpiwqSRBTBKAPRS1294-82-89 23:11:00 Test Item Value Reference Range Interpretation Comments Lymphocytes # (test code = Lymphocytes 2.1 1.0-5.5 #) [facility] RockWhzuyvhLHSHNODMQP9946-12-34 23:11:00 Test Item Value Reference Range Interpretation Comments Lymphocytes (test code = Lymphocytes) 19.9 20.0-40.0 [facility] RockPunvlgkZQOSXAZSWS2664-04-18 23:11:00 Test Item Value Reference Range Interpretation Comments Segs (test code = Segs) 70.8 45.0-75.0 [facility] RockDcsppmiBVKYOYHIUW0645-90-52 23:11:00 Test Item Value Reference Range Interpretation Comments Platelet (test code = Platelet) 306 133-450 [facility] RockQinhowfAQRCPBZYBZ3159-04-21 23:11:00 Test Item Value Reference Range Interpretation Comments MCHC (test code = MCHC) 33.6 32.0-36.0 [facility] RockIwkodbeHPQZCPHORA8098-59-51 23:11:00 Test Item Value Reference Range Interpretation Comments MPV (test code = MPV) 7.3 7.4-10.4 [facility] RockFativrfPZLYLWNKIQ1669-32-73 23:11:00 Test Item Value Reference Range Interpretation Comments RDW (test code = RDW) 16.9 11.5-14.5 [facility] RockPpxqguyWLWAEUPWMS9228-13-92 23:11:00 Test Item Value Reference Range Interpretation Comments MCV (test code = MCV) 69.5 80.0-94.0 [facility]LlndwexMVHJUYNZME2448-74-07 23:11:00 Test Item Value Reference Range Interpretation Comments MCH (test code = MCH) 23.4 pg 27.0-31.0 [facility] HospitalYpmlseyGHFWGQSLUN8059-87-83 23:11:00 Test Item Value Reference Range Interpretation Comments Hct (test code = Hct) 37.4 42.0-54.0 [facility] HospitalKyxklthUOJZNCTIWU3089-37-52 23:11:00 Test Item Value Reference Range Interpretation Comments Hgb (test code = Hgb) 12.6 14.0-18.0 [facility] HospitalGzieihuJZPBAAGIRK8028-57-11 23:11:00 Test Item Value Reference Range Interpretation Comments WBC X 10x3 (test code = WBC X 10x3) 10.6 3.7-10.4 [facility] HospitalLvrhjyqQZKWMRZRPJ8839-01-74 23:11:00 Test Item Value Reference Range Interpretation Comments RBC X 10x6 (test code = RBC X 10x6) 5.39 4.70-6.10 [facility] AreaCARDIAC XAJQXNV5986-26-86 23:11:00 Test Item Value Reference Range Interpretation Comments CK-MB INDEX (test 1.0 See_Comment [Automate d message] The code = CK-MB INDEX) system w [facility] generated this result transmit vale reference range : <=2.5. The reference range was not used to interpr et this result as olivia l/abnormal. [facility] AreaCARDIAC BUAGLBQ2580-86-17 23:11:00 Test Item Value Reference Range Interpretation Comments CK MB (test code = CK MB) 0.8 0.5-3.6 [facility] AreaCARD[facility]AC MJQXJTU7398-93-14 23:11:00 Test Item Value Reference Range Interpretation Comments Total CK (test code = Total CK) 80 12-191 [facility] AreaCARAC PHHLLDR6154-21-69 23:11:00 Test Item Value Reference Range Interpretation Comments Troponin-I (test code no gt See_Comment [Auto mated message] The = Troponin-I) system which g enerated this result transmit vale reference range : <=0.40. The reference r shashi was not used to interpr et this result as olivia l/abnormal. [facility]2016-11-13 23:11:00 Test Item Value Reference Range Interpretation Comments Alk Phos (test code = Alk Phos) 133 39-136 [facility]2016-11-13 23:11:00 Test Item Value Reference Range Interpretation Comments Glucose Lvl (test code = Glucose Lvl) 137 70-99 [facility]2016-11-13 23:11:00 Test Item Value Reference Range Interpretation Comments BUN (test code = BUN) 17 7-22 [facility]2016-11-13 23:11:00 Test Item Value Reference Range Interpretation Comments Creatinine Lvl (test code = Creatinine 1.01 0.50-1.40 Lvl) [facility]2016-11-13 23:11:00 Test Item Value Reference Range Interpretation Comments Sodium Lvl (test code = Sodium Lvl) 139 135-145 [facility]2016-11-13 23:11:00 Test Item Value Reference Range Interpretation Comments ALANINE AMINOTRANSFERASE 34 See_Comment [A utomated message] (test code = ALANINE The sys tem which AMINOTRANSFERASE) generated this result transmitted ref erence range: <=65. Th e reference range was not used to int erpret this result as normal/abnormal . [facility]2016-11-13 23:11:00 Test Item Value Reference Range Interpretation Comments Albumin Lvl (test code = Albumin Lvl) 3.3 3.5-5.0 [facility]2016-11-13 23:11:00 Test Item Value Reference Range Interpretation Comments Chloride Lvl (test code = Chloride Lvl) 105 95-109 [facility]2016-11-13 23:11:00 Test Item Value Reference Range Interpretation Comments eGFR (test code = eGFR) 88 [facility]2016-11-13 23:11:00 Test Item Value Reference Range Interpretation Comments Bili Total (test code = Bili Total) 0.4 0.2-1.3 [facility]2016-11-13 23:11:00 Test Item Value Reference Range Interpretation Comments Calcium Lvl (test code = Calcium Lvl) 8.6 8.5-10.5 [facility]2016-11-13 23:11:00 Test Item Value Reference Range Interpretation Comments Potassium Lvl (test code = Potassium 3.7 3.5-5.1 Lvl) [place] 249866-11-13 23:11:00 Test Item Value Reference Range Interpretation Comments CO2 (test code = CO2) 28 24-32 [place] [address]-11-13 23:11:00 Test Item Value Reference Range Interpretation Comments Total Protein (test code = Total 7.8 6.4-8.4 Protein) [place] [address]-11-13 23:11:00 Test Item Value Reference Range Interpretation Comments ASPARTATE TRANSAMINASE 16 See_Comment [Aut omated message] (test code = ASPARTATE The s ystem which TRANSAMINASE) generated this result transmitted ref erence range: <=37. Th e reference range was not used to interpr et this result as normal/abnormal . [place] [address]-11-13 23:11:00 Test Item Value Reference Range Interpretation Comments AGAP (test code = AGAP) 9.7 10.0-20.0 [place] [address]-11-13 23:11:00 Test Item Value Reference Range Interpretation Comments B/C Ratio (test code = B/C Ratio) 17 6-25 [place] [address]-11-13 23:11:00 Test Item Value Reference Range Interpretation Comments Globulin (test code = Globulin) 4.5 2.7-4.2 [place] [address]-11-13 23:11:00 Test Item Value Reference Range Interpretation Comments A/G Ratio (test code = A/G Ratio) 0.7 0.7-1.6 [place] [address]-11-13 23:11:00 Test Item Value Reference Range Interpretation Comments Monocytes # (test code 0.8 See_Comment [Aut omated message] The = Monocytes #) system which generated this result tra nsmitted reference range : <=0.8. The reference r shashi was not used to int erpret this result as normal/abnormal . [place] [address]-11-13 23:11:00 Test Item Value Reference Range Interpretation Comments Eosinophils # (test code 0.1 See_Comment [A utomated message] The = Eosinophils #) system whic h generated this result tra nsmitted reference range : <=0.5. The reference r shashi was not used to int erpret this result as normal/abnormal . [facility] RockRnhtssfSLUQQMAWFN7614-80-63 23:11:00 Test Item Value Reference Range Interpretation Comments Basophils # (test code 0.1 See_Comment [Aut omated message] The = Basophils #) system which generated this result tra nsmitted reference range : <=0.2. The reference r shashi was not used to int erpret this result as normal/abnormal . [facility] RockVstbmvoFMOSEGRLIF9926-23-34 23:11:00 Test Item Value Reference Range Interpretation Comments Microcyte (test code = 2+ *ABN*(05/05/16 Microcyte) 5:11 PM) [facility] RockAvxkkfqTVUFHMPHLO0998-36-56 23:11:00 Test Item Value Reference Range Interpretation Comments Monocytes (test code = Monocytes) 7.5 2.0-12.0 [facility] RockTwdsbroACOIKZFTLL5581-42-21 23:11:00 Test Item Value Reference Range Interpretation Comments Eosinophils (test code = 1.1 See_Comment [A utomated message] The Eosinophils) system which ge nerated this result tra nsmitted reference range : <=4.0. The reference r shashi was not used to int erpret this result as normal/abnormal . [facility] RockMqrwjnmEXNUMNUXAJ3546-01-15 23:11:00 Test Item Value Reference Range Interpretation Comments Basophils (test code = 0.7 See_Comment [Aut omated message] The Basophils) system which ge nerated this result tra nsmitted reference range : <=1.0. The reference r shashi was not used to int erpret this result as normal/abnormal . [facility] RockYphuxsaQZOXIEUYBQ3941-71-31 23:11:00 Test Item Value Reference Range Interpretation Comments Segs-Bands # (test code = Segs-Bands #) 7.5 1.5-8.1 [facility] RockUloiuwqOYXLRBOKQW6923-51-82 23:11:00 Test Item Value Reference Range Interpretation Comments Lymphocytes # (test code = Lymphocytes 2.1 1.0-5.5 #) [facility] RockXrjszicKNNTXDYWVH0795-71-83 23:11:00 Test Item Value Reference Range Interpretation Comments Lymphocytes (test code = Lymphocytes) 19.9 20.0-40.0 [facility] RockJaebozeGPTWNWPSTF7090-69-60 23:11:00 Test Item Value Reference Range Interpretation Comments Segs (test code = Segs) 70.8 45.0-75.0 [facility]SgydwuxRQSOBAVDQO2480-22-96 23:11:00 Test Item Value Reference Range Interpretation Comments Platelet (test code = Platelet) 306 133-450 [facility] HospitalGsavfphWJGDUAQARE0950-32-22 23:11:00 Test Item Value Reference Range Interpretation Comments MCHC (test code = MCHC) 33.6 32.0-36.0 [facility] RockZfnjvglFKXADOCPOZ8542-94-08 23:11:00 Test Item Value Reference Range Interpretation Comments MPV (test code = MPV) 7.3 7.4-10.4 [facility] RockJjnrvlaCQAFHICKID5336-48-61 23:11:00 Test Item Value Reference Range Interpretation Comments RDW (test code = RDW) 16.9 11.5-14.5 [facility] RockSixcsbhSOQTQBZQHP7308-63-65 23:11:00 Test Item Value Reference Range Interpretation Comments MCV (test code = MCV) 69.5 80.0-94.0 [facility] RockVvgithcLQZPWDLKCZ8582-23-09 23:11:00 Test Item Value Reference Range Interpretation Comments MCH (test code = MCH) 23.4 pg 27.0-31.0 [facility] HospitalXmedrffIAUQYOMCVY6390-92-30 23:11:00 Test Item Value Reference Range Interpretation Comments Hct (test code = Hct) 37.4 42.0-54.0 [facility] RockCuqyddpYWWNWFNNHS4476-22-44 23:11:00 Test Item Value Reference Range Interpretation Comments Hgb (test code = Hgb) 12.6 14.0-18.0 [facility] RockXxlqwdzTWYXHRGHSA8362-38-14 23:11:00 Test Item Value Reference Range Interpretation Comments WBC X 10x3 (test code = WBC X 10x3) 10.6 3.7-10.4 [facility] HospitalEqmrwmcEJKVUPJULE6350-33-79 23:11:00 Test Item Value Reference Range Interpretation Comments RBC X 10x6 (test code = RBC X 10x6) 5.39 4.70-6.10 [facility] AreaCARDIHILLSDALE HOSPITALWDIDGFM5453-85-87 23:11:00 Test Item Value Reference Range Interpretation Comments CK-MB INDEX (test 1.0 See_Comment [Automate d message] The code = CK-MB INDEX) system w [facility] generated this result transmit vale reference range : <=2.5. The reference range was not used to interpr et this result as olivia l/abnormal. [facility] [id number] 23:11:00 Test Item Value Reference Range Interpretation Comments CK MB (test code = CK MB) 0.8 0.5-3.6 [facility]ann[facility] Inc[facility]AC [id number] 23:11:00 Test Item Value Reference Range Interpretation Comments Total CK (test code = Total CK) 80 12-191 [facility]ann[facility]ART[facility] Inc.AC [id number] 23:11:00 Test Item Value Reference Range Interpretation Comments Troponin-I (test code no gt See_Comment [Auto mated message] The = Troponin-I) system which g enerated this result transmit vale reference range : <=0.40. The reference r shashi was not used to interpr et this result as olivia l/abnormal. [facility] [employer] [id number] 23:11:00 Test Item Value Reference Range Interpretation Comments Alk Phos (test code = Alk Phos) 133 39-136 [facility] [employer] [id number] 23:11:00 Test Item Value Reference Range Interpretation Comments Glucose Lvl (test code = Glucose Lvl) 137 70-99 [facility] [employer] [id number] 23:11:00 Test Item Value Reference Range Interpretation Comments BUN (test code = BUN) 17 7-22 [facility] HospitalBai[facility] [id number] 23:11:00 Test Item Value Reference Range Interpretation Comments Creatinine Lvl (test code = Creatinine 1.01 0.50-1.40 Lvl) [facility] [id number] 23:11:00 Test Item Value Reference Range Interpretation Comments Sodium Lvl (test code = Sodium Lvl) 139 135-145 [facility] [employer] [id number] 23:11:00 Test Item Value Reference Range Interpretation Comments ALANINE AMINOTRANSFERASE 34 See_Comment [A utomated message] (test code = ALANINE The sys tem which AMINOTRANSFERASE) generated this result transmitted ref erence range: <=65. Th e reference range was not used to int erpret this result as normal/abnormal . [facility] [employer] [id number] 23:11:00 Test Item Value Reference Range Interpretation Comments Albumin Lvl (test code = Albumin Lvl) 3.3 3.5-5.0 [facility]2016-11-13 23:11:00 Test Item Value Reference Range Interpretation Comments Chloride Lvl (test code = Chloride Lvl) 105 95-109 [facility]2016-11-13 23:11:00 Test Item Value Reference Range Interpretation Comments eGFR (test code = eGFR) 88 [facility]2016-11-13 23:11:00 Test Item Value Reference Range Interpretation Comments Bili Total (test code = Bili Total) 0.4 0.2-1.3 [facility]2016-11-13 23:11:00 Test Item Value Reference Range Interpretation Comments Calcium Lvl (test code = Calcium Lvl) 8.6 8.5-10.5 [facility]2016-11-13 23:11:00 Test Item Value Reference Range Interpretation Comments Potassium Lvl (test code = Potassium 3.7 3.5-5.1 Lvl) [facility]2016-11-13 23:11:00 Test Item Value Reference Range Interpretation Comments CO2 (test code = CO2) 28 24-32 [facility]2016-11-13 23:11:00 Test Item Value Reference Range Interpretation Comments Total Protein (test code = Total 7.8 6.4-8.4 Protein) [facility]2016-11-13 23:11:00 Test Item Value Reference Range Interpretation Comments ASPARTATE TRANSAMINASE 16 See_Comment [Aut omated message] (test code = ASPARTATE The s ystem which TRANSAMINASE) generated this result transmitted ref erence range: <=37. Th e reference range was not used to interpr et this result as normal/abnormal . [facility]2016-11-13 23:11:00 Test Item Value Reference Range Interpretation Comments AGAP (test code = AGAP) 9.7 10.0-20.0 [facility]2016-11-13 23:11:00 Test Item Value Reference Range Interpretation Comments B/C Ratio (test code = B/C Ratio) 17 6-25 [place] [id number] 23:11:00 Test Item Value Reference Range Interpretation Comments Globulin (test code = Globulin) 4.5 2.7-4.2 [facility]2016-11-13 23:11:00 Test Item Value Reference Range Interpretation Comments A/G Ratio (test code = A/G Ratio) 0.7 0.7-1.6 [facility] [id number] 23:11:00 Test Item Value Reference Range Interpretation Comments Monocytes # (test code 0.8 See_Comment [Aut omated message] The = Monocytes #) system which generated this result tra nsmitted reference range : <=0.8. The reference r shashi was not used to int erpret this result as normal/abnormal . [facility] RockUllmxouFAWEMHXKRO9255-33-24 23:11:00 Test Item Value Reference Range Interpretation Comments Eosinophils # (test code 0.1 See_Comment [A utomated message] The = Eosinophils #) system whic h generated this result tra nsmitted reference range : <=0.5. The reference r shashi was not used to int erpret this result as normal/abnormal . [facility] RockUdvztpkLILQDAVWYG4804-23-17 23:11:00 Test Item Value Reference Range Interpretation Comments Basophils # (test code 0.1 See_Comment [Aut omated message] The = Basophils #) system which generated this result tra nsmitted reference range : <=0.2. The reference r shashi was not used to int erpret this result as normal/abnormal . [facility] RockZykflkaCQJFXTZSWD3283-09-80 23:11:00 Test Item Value Reference Range Interpretation Comments Microcyte (test code = 2+ *ABN*(05/05/16 Microcyte) 5:11 PM) [facility] RockPbunsozIRUZFEKCPW2333-65-93 23:11:00 Test Item Value Reference Range Interpretation Comments Monocytes (test code = Monocytes) 7.5 2.0-12.0 [facility] RockFzmylaqWOBOFICGIT1186-87-86 23:11:00 Test Item Value Reference Range Interpretation Comments Eosinophils (test code = 1.1 See_Comment [A utomated message] The Eosinophils) system which ge nerated this result tra nsmitted reference range : <=4.0. The reference r shashi was not used to int erpret this result as normal/abnormal . [facility] RockBmlvpegZTSQUZNQEE7436-87-19 23:11:00 Test Item Value Reference Range Interpretation Comments Basophils (test code = 0.7 See_Comment [Aut omated message] The Basophils) system which ge nerated this result tra nsmitted reference range : <=1.0. The reference r shahsi was not used to int erpret this result as normal/abnormal . [facility] RockBlrqnkqYEJLEYQAAG7128-58-13 23:11:00 Test Item Value Reference Range Interpretation Comments Segs-Bands # (test code = Segs-Bands #) 7.5 1.5-8.1 [facility] RockDgykurgMGDSUKKVTF0110-14-32 23:11:00 Test Item Value Reference Range Interpretation Comments Lymphocytes # (test code = Lymphocytes 2.1 1.0-5.5 #) [facility] RockUgryocqSHFERLHHZB4365-43-23 23:11:00 Test Item Value Reference Range Interpretation Comments Lymphocytes (test code = Lymphocytes) 19.9 20.0-40.0 [facility] RockTqqkbnpWOVTKLIQLR3688-02-64 23:11:00 Test Item Value Reference Range Interpretation Comments Segs (test code = Segs) 70.8 45.0-75.0 [facility] RockAfovkgmVAZWRGVWOR6925-54-04 23:11:00 Test Item Value Reference Range Interpretation Comments Platelet (test code = Platelet) 306 133-450 [facility] RockCxiaixkOAFNYJGJRK3551-73-64 23:11:00 Test Item Value Reference Range Interpretation Comments MCHC (test code = MCHC) 33.6 32.0-36.0 [facility] RockPlvdutxCZRVFPLAAC6802-87-54 23:11:00 Test Item Value Reference Range Interpretation Comments MPV (test code = MPV) 7.3 7.4-10.4 [facility] RockPhhdlnmGVABUSRDJM3886-89-72 23:11:00 Test Item Value Reference Range Interpretation Comments RDW (test code = RDW) 16.9 11.5-14.5 [facility] RockFrwonohKGZNWHTBUO9458-97-09 23:11:00 Test Item Value Reference Range Interpretation Comments MCV (test code = MCV) 69.5 80.0-94.0 [facility] RockIokbrikRSWVVVLQYX5078-79-31 23:11:00 Test Item Value Reference Range Interpretation Comments MCH (test code = MCH) 23.4 pg 27.0-31.0 [facility] RockHoedqddWNKIHDHSFT4403-08-29 23:11:00 Test Item Value Reference Range Interpretation Comments Hct (test code = Hct) 37.4 42.0-54.0 [facility] RockTebcfmtXPXJPDPVBC6534-11-10 23:11:00 Test Item Value Reference Range Interpretation Comments Hgb (test code = Hgb) 12.6 14.0-18.0 [facility] RockCmmekcxUIIEKMSBOJ4456-70-85 23:11:00 Test Item Value Reference Range Interpretation Comments WBC X 10x3 (test code = WBC X 10x3) 10.6 3.7-10.4 [facility] RockOhsgainOWFVTATMHY0929-19-67 23:11:00 Test Item Value Reference Range Interpretation Comments RBC X 10x6 (test code = RBC X 10x6) 5.39 4.70-6.10 [facility]2016-11-03 23:17:00 Test Item Value Reference Range Interpretation Comments Globulin (test code = Globulin) 4.2 2.7-4.2 [facility]2016-11-03 23:17:00 Test Item Value Reference Range Interpretation Comments B/C Ratio (test code = B/C Ratio) 19 6-25 [facility]2016-11-03 23:17:00 Test Item Value Reference Range Interpretation Comments AGAP (test code = AGAP) 9.9 10.0-20.0 [facility]2016-11-03 23:17:00 Test Item Value Reference Range Interpretation Comments A/G Ratio (test code = A/G Ratio) 0.8 0.7-1.6 [facility]2016-11-03 23:17:00 Test Item Value Reference Range Interpretation Comments eGFR (test code = eGFR) 100 [facility]2016-11-03 23:17:00 Test Item Value Reference Range Interpretation Comments Alk Phos (test code = Alk Phos) 128 39-136 [facility]2016-11-03 23:17:00 Test Item Value Reference Range Interpretation Comments Albumin Lvl (test code = Albumin Lvl) 3.4 3.5-5.0 [facility]2016-11-03 23:17:00 Test Item Value Reference Range Interpretation Comments ALANINE AMINOTRANSFERASE 30 See_Comment [A utomated message] (test code = ALANINE The sys tem which AMINOTRANSFERASE) generated this result transmitted ref erence range: <=65. Th e reference range was not used to int erpret this result as normal/abnormal . [facility]2016-11-03 23:17:00 Test Item Value Reference Range Interpretation Comments Total Protein (test code = Total 7.6 6.4-8.4 Protein) [facility]2016-11-03 23:17:00 Test Item Value Reference Range Interpretation Comments Bili Total (test code = Bili Total) 0.3 0.2-1.3 [facility]2016-11-03 23:17:00 Test Item Value Reference Range Interpretation Comments ASPARTATE TRANSAMINASE 14 See_Comment [Aut omated message] (test code = ASPARTATE The s ystem which TRANSAMINASE) generated this result transmitted ref erence range: <=37. Th e reference range was not used to interpr et this result as normal/abnormal . [facility]2016-11-03 23:17:00 Test Item Value Reference Range Interpretation Comments CO2 (test code = CO2) 26 24-32 [facility]2016-11-03 23:17:00 Test Item Value Reference Range Interpretation Comments Calcium Lvl (test code = Calcium Lvl) 8.7 8.5-10.5 [facility]2016-11-03 23:17:00 Test Item Value Reference Range Interpretation Comments Chloride Lvl (test code = Chloride Lvl) 104 95-109 [facility]2016-11-03 23:17:00 Test Item Value Reference Range Interpretation Comments Potassium Lvl (test code = Potassium 3.9 3.5-5.1 Lvl) [facility]2016-11-03 23:17:00 Test Item Value Reference Range Interpretation Comments Glucose Lvl (test code = Glucose Lvl) 221 70-99 [facility]2016-11-03 23:17:00 Test Item Value Reference Range Interpretation Comments Sodium Lvl (test code = Sodium Lvl) 136 135-145 [facility]2016-11-03 23:17:00 Test Item Value Reference Range Interpretation Comments Creatinine Lvl (test code = Creatinine 0.91 0.50-1.40 Lvl) [facility]2016-11-03 23:17:00 Test Item Value Reference Range Interpretation Comments BUN (test code = BUN) 17 7-22 [facility] RockSqxycafFZLASFBWET3399-86-77 23:17:00 Test Item Value Reference Range Interpretation Comments RBC X 10x6 (test code = RBC X 10x6) 5.40 4.70-6.10 [facility] RockIgmsmwmKPYKZUXBOK9623-50-41 23:17:00 Test Item Value Reference Range Interpretation Comments WBC X 10x3 (test code = WBC X 10x3) 10.3 3.7-10.4 [facility] RockYtqwcdqNORATOZNPY4975-28-27 23:17:00 Test Item Value Reference Range Interpretation Comments Hgb (test code = Hgb) 12.9 14.0-18.0 [facility] RockMljlrbgIEDEPFZZFC4632-30-40 23:17:00 Test Item Value Reference Range Interpretation Comments MPV (test code = MPV) 7.2 7.4-10.4 [facility] RockMioahwjAFDGWNFYXT6584-90-26 23:17:00 Test Item Value Reference Range Interpretation Comments RDW (test code = RDW) 16.8 11.5-14.5 [facility] RockOazpvklLZRQYFXZYB7258-27-61 23:17:00 Test Item Value Reference Range Interpretation Comments Platelet (test code = Platelet) 313 133-450 [facility] RockSlwsoeiYRVBYHYOOI8687-79-77 23:17:00 Test Item Value Reference Range Interpretation Comments MCH (test code = MCH) 23.8 pg 27.0-31.0 [facility] RockFginoujHQVUGEUAVX1121-32-33 23:17:00 Test Item Value Reference Range Interpretation Comments MCHC (test code = MCHC) 34.0 32.0-36.0 [facility] RockSgnocjlNVSTEMEJVS4360-43-31 23:17:00 Test Item Value Reference Range Interpretation Comments Hct (test code = Hct) 37.9 42.0-54.0 [facility] RockNvdxgzdJOGISUMYOA0651-30-28 23:17:00 Test Item Value Reference Range Interpretation Comments MCV (test code = MCV) 70.1 80.0-94.0 [facility] RockKrlgpiiMSNPNVSWGH8039-03-25 23:17:00 Test Item Value Reference Range Interpretation Comments Lymphocytes # (test code = Lymphocytes 2.3 1.0-5.5 #) [facility] RockQcmggbeQGKWQEHLCH0102-91-57 23:17:00 Test Item Value Reference Range Interpretation Comments Eosinophils # (test code 0.1 See_Comment [A utomated message] The = Eosinophils #) system whic h generated this result tra nsmitted reference range : <=0.5. The reference r shashi was not used to int erpret this result as normal/abnormal . [place] 193376-11-03 23:17:00 Test Item Value Reference Range Interpretation Comments Monocytes # (test code 0.6 See_Comment [Aut omated message] The = Monocytes #) system which generated this result tra nsmitted reference range : <=0.8. The reference r shashi was not used to int erpret this result as normal/abnormal . [facility] RockJkmprbkSETYQOTXCZ2375-82-79 23:17:00 Test Item Value Reference Range Interpretation Comments Basophils # (test code 0.1 See_Comment [Aut omated message] The = Basophils #) system which generated this result tra nsmitted reference range : <=0.2. The reference r shashi was not used to int erpret this result as normal/abnormal . [facility] RockSbluzmiBFSNUHKNND1066-17-49 23:17:00 Test Item Value Reference Range Interpretation Comments Microcyte (test code = 2+ *ABN*(04/25/16 Microcyte) 6:17 PM) [facility] RockUapgiswMYUUGGZMMZ0686-94-09 23:17:00 Test Item Value Reference Range Interpretation Comments Segs (test code = Segs) 69.2 45.0-75.0 [facility] RockWrsnnghNBRPLHCVFR4255-53-94 23:17:00 Test Item Value Reference Range Interpretation Comments Segs-Bands # (test code = Segs-Bands #) 7.1 1.5-8.1 [facility] RockThfhotmOMFYUSXILR3641-31-75 23:17:00 Test Item Value Reference Range Interpretation Comments Monocytes (test code = Monocytes) 6.1 2.0-12.0 [facility] RockPgcosjmUOLRMVVBTW9445-86-91 23:17:00 Test Item Value Reference Range Interpretation Comments Basophils (test code = 1.1 See_Comment [Aut omated message] The Basophils) system which ge nerated this result tra nsmitted reference range : <=1.0. The reference r shashi was not used to int erpret this result as normal/abnormal . [facility] RockAgitbsvUJLHGSDOZO3133-06-70 23:17:00 Test Item Value Reference Range Interpretation Comments Eosinophils (test code = 1.1 See_Comment [A utomated message] The Eosinophils) system which ge nerated this result tra nsmitted reference range : <=4.0. The reference r shashi was not used to int erpret this result as normal/abnormal . [facility]HJCD[facility]8911[facility] 23:17:00 Test Item Value Reference Range Interpretation Comments Lymphocytes (test code = Lymphocytes) 22.5 20.0-40.0 [facility] AND [id number] 23:17:00 Test Item Value Reference Range Interpretation Comments UA WBC (test code = UA WBC) 0-2 /HPF [facility] AND [id number] 23:17:00 Test Item Value Reference Range Interpretation Comments UA RBC (test code = 0-2 /HPF See_Comment [Automa vale message] The UA RBC) system which ge nerated this result tra nsmitted reference range : <=2. The reference range was not used to interpr et this result as olivia l/abnormal. [facility] AND [id number] 23:17:00 Test Item Value Reference Range Interpretation Comments UA Bacteria (test code = UA Occasional /HPF Bacteria) [facility] [id number] 23:17:00 Test Item Value Reference Range Interpretation Comments UA Leuk Est (test Negative (04/25/16 6:17 code = UA Leuk Est) PM) [facility] AND [id number] 23:17:00 Test Item Value Reference Range Interpretation Comments UA Sq Epi (test code = UA Sq Occasional /LPF Epi) [facility] AND [id number] 23:17:00 Test Item Value Reference Range Interpretation Comments UA pH (test code = UA pH) 6.0 1 5.0-8.0 [facility] AND [id number] 23:17:00 Test Item Value Reference Range Interpretation Comments UA Protein (test code Negative (04/25/16 6:17 = UA Protein) PM) [facility] AND [id number] 23:17:00 Test Item Value Reference Range Interpretation Comments UA Glucose (test code = UA Glucose) 250 mg/dL [facility] [id number] 23:17:00 Test Item Value Reference Range Interpretation Comments UA Ketones (test code Negative *NA*(04/25/16 = UA Ketones) 6:17 PM) [facility] AND [id number] 23:17:00 Test Item Value Reference Range Interpretation Comments UA Bili (test code = Negative *NA*(04/25/16 UA Bili) 6:17 PM) [facility]ann[facility] [id number] 23:17:00 Test Item Value Reference Range Interpretation Comments UA Blood (test code = Negative (04/25/16 6:17 UA Blood) PM) [facility] AND [id number] 23:17:00 Test Item Value Reference Range Interpretation Comments UA Urobilinogen (test code = UA 0.2 0.1-1.0 Urobilinogen) [facility] AND [id number] 23:17:00 Test Item Value Reference Range Interpretation Comments UA Nitrite (test code Negative (04/25/16 6:17 = UA Nitrite) PM) [facility] AND [id number] 23:17:00 Test Item Value Reference Range Interpretation Comments UA Color (test code = Yellow *NA*(04/25/16 UA Color) 6:17 PM) [facility] AND [id number] 23:17:00 Test Item Value Reference Range Interpretation Comments UA Turbidity (test code = Clear (04/25/16 6:17 UA Turbidity) PM) [facility] AND [id number] 23:17:00 Test Item Value Reference Range Interpretation Comments UA Spec Grav (test code = UA Spec 1.020 1 Grav) [facility]2016-11-03 23:17:00 Test Item Value Reference Range Interpretation Comments Globulin (test code = Globulin) 4.2 2.7-4.2 [facility]2016-11-03 23:17:00 Test Item Value Reference Range Interpretation Comments B/C Ratio (test code = B/C Ratio) 19 6-25 [facility]annANGEL MEDICAL CENTERFSDKU6602-73-69 23:17:00 Test Item Value Reference Range Interpretation Comments AGAP (test code = AGAP) 9.9 10.0-20.0 [facility]2016-11-03 23:17:00 Test Item Value Reference Range Interpretation Comments A/G Ratio (test code = A/G Ratio) 0.8 0.7-1.6 [facility]2016-11-03 23:17:00 Test Item Value Reference Range Interpretation Comments eGFR (test code = eGFR) 100 [facility]2016-11-03 23:17:00 Test Item Value Reference Range Interpretation Comments Alk Phos (test code = Alk Phos) 128 39-136 [facility]2016-11-03 23:17:00 Test Item Value Reference Range Interpretation Comments Albumin Lvl (test code = Albumin Lvl) 3.4 3.5-5.0 [facility]2016-11-03 23:17:00 Test Item Value Reference Range Interpretation Comments ALANINE AMINOTRANSFERASE 30 See_Comment [A utomated message] (test code = ALANINE The sys tem which AMINOTRANSFERASE) generated this result transmitted ref erence range: <=65. Th e reference range was not used to int erpret this result as normal/abnormal . [facility]2016-11-03 23:17:00 Test Item Value Reference Range Interpretation Comments Total Protein (test code = Total 7.6 6.4-8.4 Protein) [facility]2016-11-03 23:17:00 Test Item Value Reference Range Interpretation Comments Bili Total (test code = Bili Total) 0.3 0.2-1.3 [facility]2016-11-03 23:17:00 Test Item Value Reference Range Interpretation Comments ASPARTATE TRANSAMINASE 14 See_Comment [Aut omated message] (test code = ASPARTATE The s ystem which TRANSAMINASE) generated this result transmitted ref erence range: <=37. Th e reference range was not used to interpr et this result as normal/abnormal . [facility]2016-11-03 23:17:00 Test Item Value Reference Range Interpretation Comments CO2 (test code = CO2) 26 24-32 [facility]2016-11-03 23:17:00 Test Item Value Reference Range Interpretation Comments Calcium Lvl (test code = Calcium Lvl) 8.7 8.5-10.5 [facility]2016-11-03 23:17:00 Test Item Value Reference Range Interpretation Comments Chloride Lvl (test code = Chloride Lvl) 104 95-109 [facility]2016-11-03 23:17:00 Test Item Value Reference Range Interpretation Comments Potassium Lvl (test code = Potassium 3.9 3.5-5.1 Lvl) [facility]2016-11-03 23:17:00 Test Item Value Reference Range Interpretation Comments Glucose Lvl (test code = Glucose Lvl) 221 70-99 [facility]2016-11-03 23:17:00 Test Item Value Reference Range Interpretation Comments Sodium Lvl (test code = Sodium Lvl) 136 135-145 [facility]2016-11-03 23:17:00 Test Item Value Reference Range Interpretation Comments Creatinine Lvl (test code = Creatinine 0.91 0.50-1.40 Lvl) [facility]2016-11-03 23:17:00 Test Item Value Reference Range Interpretation Comments BUN (test code = BUN) 17 7-22 [facility] RockMrhgnocOEZOYBODLW9989-22-73 23:17:00 Test Item Value Reference Range Interpretation Comments RBC X 10x6 (test code = RBC X 10x6) 5.40 4.70-6.10 [facility] RockIkggrjtAQHIHRFXZF7786-71-91 23:17:00 Test Item Value Reference Range Interpretation Comments WBC X 10x3 (test code = WBC X 10x3) 10.3 3.7-10.4 [facility] RockLpacgliMHFCJUMJYI0143-54-68 23:17:00 Test Item Value Reference Range Interpretation Comments Hgb (test code = Hgb) 12.9 14.0-18.0 [facility] RockAolynkxEAGBXBUDCI7057-69-17 23:17:00 Test Item Value Reference Range Interpretation Comments MPV (test code = MPV) 7.2 7.4-10.4 [facility] RockMvorupdZMNGAVQFSW0174-93-91 23:17:00 Test Item Value Reference Range Interpretation Comments RDW (test code = RDW) 16.8 11.5-14.5 [facility] [facility] RockCrrljacLNVVFOJYOG0954-14-64 23:17:00 Test Item Value Reference Range Interpretation Comments Platelet (test code = Platelet) 313 133-450 [facility] RockJbbwhwlKKLAENKIBV0468-08-07 23:17:00 Test Item Value Reference Range Interpretation Comments MCH (test code = MCH) 23.8 pg 27.0-31.0 [facility] RockEdjschpYNRZDNRXXC9962-59-24 23:17:00 Test Item Value Reference Range Interpretation Comments MCHC (test code = MCHC) 34.0 32.0-36.0 [facility] RockYwnccljRVYYCQRGVP3592-79-28 23:17:00 Test Item Value Reference Range Interpretation Comments Hct (test code = Hct) 37.9 42.0-54.0 [place] 193376-11-03 23:17:00 Test Item Value Reference Range Interpretation Comments MCV (test code = MCV) 70.1 80.0-94.0 [facility] Ro[id number] 23:17:00 Test Item Value Reference Range Interpretation Comments Lymphocytes # (test code = Lymphocytes 2.3 1.0-5.5 #) [facility] RockQubyxlgRFHKQPZNYA1358-88-74 23:17:00 Test Item Value Reference Range Interpretation Comments Eosinophils # (test code 0.1 See_Comment [A utomated message] The = Eosinophils #) system whic h generated this result tra nsmitted reference range : <=0.5. The reference r shashi was not used to int erpret this result as normal/abnormal . [facility] RockIhhvquhVPHMPJTOGK2058-10-74 23:17:00 Test Item Value Reference Range Interpretation Comments Monocytes # (test code 0.6 See_Comment [Aut omated message] The = Monocytes #) system which generated this result tra nsmitted reference range : <=0.8. The reference r shashi was not used to int erpret this result as normal/abnormal . [facility] RockGhorgceCADACJPZZG7959-80-72 23:17:00 Test Item Value Reference Range Interpretation Comments Basophils # (test code 0.1 See_Comment [Aut omated message] The = Basophils #) system which generated this result tra nsmitted reference range : <=0.2. The reference r shashi was not used to int erpret this result as normal/abnormal . [facility] RockIgcdmjhHNFEFNTYTC5572-30-97 23:17:00 Test Item Value Reference Range Interpretation Comments Microcyte (test code = 2+ *ABN*(04/25/16 Microcyte) 6:17 PM) [facility] RockMgobtamLSFDVSPSXK5756-50-97 23:17:00 Test Item Value Reference Range Interpretation Comments Segs (test code = Segs) 69.2 45.0-75.0 [facility] RockActnoprGYLCPWSEUG8682-85-53 23:17:00 Test Item Value Reference Range Interpretation Comments Segs-Bands # (test code = Segs-Bands #) 7.1 1.5-8.1 [facility] RockJtdgayqQWQTVBNXBP4184-08-75 23:17:00 Test Item Value Reference Range Interpretation Comments Monocytes (test code = Monocytes) 6.1 2.0-12.0 [facility] RockDifyexlQGGJGDHFTL0881-44-54 23:17:00 Test Item Value Reference Range Interpretation Comments Basophils (test code = 1.1 See_Comment [Aut omated message] The Basophils) system which ge nerated this result tra nsmitted reference range : <=1.0. The reference r shashi was not used to int erpret this result as normal/abnormal . [facility] RockSgyzjfkRUGIGPGERF2035-62-55 23:17:00 Test Item Value Reference Range Interpretation Comments Eosinophils (test code = 1.1 See_Comment [A utomated message] The Eosinophils) system which ge nerated this result tra nsmitted reference range : <=4.0. The reference r shashi was not used to int erpret this result as normal/abnormal . [facility] RockOsfercyLALYIBGHWE8711-04-95 23:17:00 Test Item Value Reference Range Interpretation Comments Lymphocytes (test code = Lymphocytes) 22.5 20.0-40.0 [facility] AND [id number] 23:17:00 Test Item Value Reference Range Interpretation Comments UA WBC (test code = UA WBC) 0-2 /HPF [facility] AND [id number] 23:17:00 Test Item Value Reference Range Interpretation Comments UA RBC (test code = 0-2 /HPF See_Comment [Automa vale message] The UA RBC) system which ge nerated this result tra nsmitted reference range : <=2. The reference range was not used to interpr et this result as olivia l/abnormal. [facility] AND [id number] 23:17:00 Test Item Value Reference Range Interpretation Comments UA Bacteria (test code = UA Occasional /HPF Bacteria) [facility] AND [id number] 23:17:00 Test Item Value Reference Range Interpretation Comments UA Leuk Est (test Negative (04/25/16 6:17 code = UA Leuk Est) PM) [facility] AND [id number] 23:17:00 Test Item Value Reference Range Interpretation Comments UA Sq Epi (test code = UA Sq Occasional /LPF Epi) [facility] AND [id number] 23:17:00 Test Item Value Reference Range Interpretation Comments UA pH (test code = UA pH) 6.0 1 5.0-8.0 [facility] AND [id number] 23:17:00 Test Item Value Reference Range Interpretation Comments UA Protein (test code Negative (04/25/16 6:17 = [facility]A Protein) PM) [facility] [id number] 23:17:00 Test Item Value Reference Range Interpretation Comments UA Glucose (test code = UA Glucose) 250 mg/dL [facility] [id number] 23:17:00 Test Item Value Reference Range Interpretation Comments UA Ketones (test code Negative *NA*(04/25/16 = UA Ketones) 6:17 PM) [facility] [id number] 23:17:00 Test Item Value Reference Range Interpretation Comments UA Bili (test code = Negative *NA*(04/25/16 UA Bili) 6:17 PM) [facility] [id number] 23:17:00 Test Item Value Reference Range Interpretation Comments UA Blood (test code = Negative (04/25/16 6:17 UA Blood) PM) [facility] [id number] 23:17:00 Test Item Value Reference Range Interpretation Comments UA Urobilinogen (test code = UA 0.2 0.1-1.0 Urobilinogen) [facility] [id number] 23:17:00 Test Item Value Reference Range Interpretation Comments UA Nitrite (test code Negative (04/25/16 6:17 = UA Nitrite) PM) [facility] [id number] 23:17:00 Test Item Value Reference Range Interpretation Comments UA Color (test code = Yellow *NA*(04/25/16 UA Color) 6:17 PM) [facility] [id number] 23:17:00 Test Item Value Reference Range Interpretation Comments UA Turbidity (test code = Clear (04/25/16 6:17 UA Turbidity) PM) [facility] [id number] 23:17:00 Test Item Value Reference Range Interpretation Comments UA Spec Grav (test code = UA Spec 1.020 1 Grav) [facility]annCHE[facility] [id number] 23:17:00 Test Item Value Reference Range Interpretation Comments Globulin (test code = Globulin) 4.2 2.7-4.2 [facility] [id number] 23:17:00 Test Item Value Reference Range Interpretation Comments B/C Ratio (test code = B/C Ratio) 19 6-25 [facility]2016-11-03 23:17:00 Test Item Value Reference Range Interpretation Comments AGAP (test code = AGAP) 9.9 10.0-20.0 [place] 249866-11-03 23:17:00 Test Item Value Reference Range Interpretation Comments A/G Ratio (test code = A/G Ratio) 0.8 0.7-1.6 [place] 249866-11-03 23:17:00 Test Item Value Reference Range Interpretation Comments eGFR (test code = eGFR) 100 [facility]2016-11-03 23:17:00 Test Item Value Reference Range Interpretation Comments Alk Phos (test code = Alk Phos) 128 39-136 [facility]2016-11-03 23:17:00 Test Item Value Reference Range Interpretation Comments Albumin Lvl (test code = Albumin Lvl) 3.4 3.5-5.0 [facility]2016-11-03 23:17:00 Test Item Value Reference Range Interpretation Comments ALANINE AMINOTRANSFERASE 30 See_Comment [A utomated message] (test code = ALANINE The sys tem which AMINOTRANSFERASE) generated this result transmitted ref erence range: <=65. Th e reference range was not used to int erpret this result as normal/abnormal . [facility]2016-11-03 23:17:00 Test Item Value Reference Range Interpretation Comments Total Protein (test code = Total 7.6 6.4-8.4 Protein) [facility]2016-11-03 23:17:00 Test Item Value Reference Range Interpretation Comments Bili Total (test code = Bili Total) 0.3 0.2-1.3 [place] 249866-11-03 23:17:00 Test Item Value Reference Range Interpretation Comments ASPARTATE TRANSAMINASE 14 See_Comment [Aut omated message] (test code = ASPARTATE The s ystem which TRANSAMINASE) generated this result transmitted ref erence range: <=37. Th e reference range was not used to interpr et this result as normal/abnormal . [facility]2016-11-03 23:17:00 Test Item Value Reference Range Interpretation Comments CO2 (test code = CO2) 26 24-32 [facility]2016-11-03 23:17:00 Test Item Value Reference Range Interpretation Comments Calcium Lvl (test code = Calcium Lvl) 8.7 8.5-10.5 [facility]2016-11-03 23:17:00 Test Item Value Reference Range Interpretation Comments Chloride Lvl (test code = Chloride Lvl) 104 95-109 [facility]2016-11-03 23:17:00 Test Item Value Reference Range Interpretation Comments Potassium Lvl (test code = Potassium 3.9 3.5-5.1 Lvl) [facility]2016-11-03 23:17:00 Test Item Value Reference Range Interpretation Comments Glucose Lvl (test code = Glucose Lvl) 221 70-99 [facility]2016-11-03 23:17:00 Test Item Value Reference Range Interpretation Comments Sodium Lvl (test code = Sodium Lvl) 136 135-145 [facility]2016-11-03 23:17:00 Test Item Value Reference Range Interpretation Comments Creatinine Lvl (test code = Creatinine 0.91 0.50-1.40 Lvl) [facility]2016-11-03 23:17:00 Test Item Value Reference Range Interpretation Comments BUN (test code = BUN) 17 7-22 [facility] RockOewqbceQETKWRTCDZ9445-92-79 23:17:00 Test Item Value Reference Range Interpretation Comments RBC X 10x6 (test code = RBC X 10x6) 5.40 4.70-6.10 [facility] RockFizcdaqADKVFQVSAH3801-35-18 23:17:00 Test Item Value Reference Range Interpretation Comments WBC X 10x3 (test code = WBC X 10x3) 10.3 3.7-10.4 [facility] RockBgfaycdQHJKQMCUAA6194-63-08 23:17:00 Test Item Value Reference Range Interpretation Comments Hgb (test code = Hgb) 12.9 14.0-18.0 [facility] RockQcjztvdDWWGBVFZEY7443-67-87 23:17:00 Test Item Value Reference Range Interpretation Comments MPV (test code = MPV) 7.2 7.4-10.4 [facility] RockXbobisnPVTFHBCFIF3956-77-40 23:17:00 Test Item Value Reference Range Interpretation Comments RDW (test code = RDW) 16.8 11.5-14.5 [facility] RockWztoealUYSYHRUPJX3101-51-55 23:17:00 Test Item Value Reference Range Interpretation Comments Platelet (test code = Platelet) 313 133-450 [facility] [id number] 23:17:00 Test Item Value Reference Range Interpretation Comments MCH (test code = MCH) 23.8 pg 27.0-31.0 [facility] RockHrkcdneCQCINKLUFK7697-28-18 23:17:00 Test Item Value Reference Range Interpretation Comments MCHC (test code = MCHC) 34.0 32.0-36.0 [facility] RockKbjbkmnVGBBTGPVKZ4474-90-39 23:17:00 Test Item Value Reference Range Interpretation Comments Hct (test code = Hct) 37.9 42.0-54.0 [facility] RockWkpnahiOOMXEUWYGW0587-26-00 23:17:00 Test Item Value Reference Range Interpretation Comments MCV (test code = MCV) 70.1 80.0-94.0 [facility] RockNnuetkhQMKYRDBZCY5958-99-82 23:17:00 Test Item Value Reference Range Interpretation Comments Lymphocytes # (test code = Lymphocytes 2.3 1.0-5.5 #) [facility] RockDsbdanzKRWZAHCUNU5846-45-44 23:17:00 Test Item Value Reference Range Interpretation Comments Eosinophils # (test code 0.1 See_Comment [A utomated message] The = Eosinophils #) system whic h generated this result tra nsmitted reference range : <=0.5. The reference r shashi was not used to int erpret this result as normal/abnormal . [facility] [id number] 23:17:00 Test Item Value Reference Range Interpretation Comments Monocytes # (test code 0.6 See_Comment [Aut omated message] The = Monocytes #) system which generated this result tra nsmitted reference range : <=0.8. The reference r shashi was not used to int erpret this result as normal/abnormal . [facility] RockXikorvmLPJUIWQMFM7202-67-74 23:17:00 Test Item Value Reference Range Interpretation Comments Basophils # (test code 0.1 See_Comment [Aut omated message] The = Basophils #) system which generated this result tra nsmitted reference range : <=0.2. The reference r shashi was not used to int erpret this result as normal/abnormal . [facility] RockOifpfucRYVSLJIXJB9160-97-57 23:17:00 Test Item Value Reference Range Interpretation Comments Microcyte (test code = 2+ *ABN*(04/25/16 Microcyte) 6:17 PM) [facility] RockTiblnwtUVWBBPFGII1072-83-64 23:17:00 Test Item Value Reference Range Interpretation Comments Segs (test code = Segs) 69.2 45.0-75.0 [facility] RockZqvidqfEUBTCKXSZP1710-99-66 23:17:00 Test Item Value Reference Range Interpretation Comments Segs-Bands # (test code = Segs-Bands #) 7.1 1.5-8.1 [facility] RockNbzhofqRYCTSCUPCL8482-54-46 23:17:00 Test Item Value Reference Range Interpretation Comments Monocytes (test code = Monocytes) 6.1 2.0-12.0 [facility] RockPbzrhrxSQRKSPJNQE4816-44-53 23:17:00 Test Item Value Reference Range Interpretation Comments Basophils (test code = 1.1 See_Comment [Aut omated message] The Basophils) system which ge nerated this result tra nsmitted reference range : <=1.0. The reference r shashi was not used to int erpret this result as normal/abnormal . [facility] RockTopvqztETEKYZEJMN0433-27-93 23:17:00 Test Item Value Reference Range Interpretation Comments Eosinophils (test code = 1.1 See_Comment [A utomated message] The Eosinophils) system which ge nerated this result tra nsmitted reference range : <=4.0. The reference r shashi was not used to int erpret this result as normal/abnormal . [facility] [id number] 23:17:00 Test Item Value Reference Range Interpretation Comments Lymphocytes (test code = Lymphocytes) 22.5 20.0-40.0 [facility]2016-11-03 23:17:00 Test Item Value Reference Range Interpretation Comments UA WBC (test code = UA WBC) 0-2 /HPF [facility]2016-11-03 23:17:00 Test Item Value Reference Range Interpretation Comments UA RBC (test code = 0-2 /HPF See_Comment [Automa vale message] The UA RBC) system which ge nerated this result tra nsmitted reference range : <=2. The reference range was not used to interpr et this result as olivia l/abnormal. [facility]2016-11-03 23:17:00 Test Item Value Reference Range Interpretation Comments UA Bacteria (test code = UA Occasional /HPF Bacteria) [facility] AND [id number] 23:17:00 Test Item Value Reference Range Interpretation Comments UA Leuk Est (test Negative (04/25/16 6:17 code = UA Leuk Est) PM) [facility] AND [id number] 23:17:00 Test Item Value Reference Range Interpretation Comments UA Sq Epi (test code = UA Sq Occasional /LPF Epi) [facility] AND [id number] 23:17:00 Test Item Value Reference Range Interpretation Comments UA pH (test code = UA pH) 6.0 1 5.0-8.0 [facility] AND [id number] 23:17:00 Test Item Value Reference Range Interpretation Comments UA Protein (test code Negative (04/25/16 6:17 = UA Protein) PM) [facility] AND [id number] 23:17:00 Test Item Value Reference Range Interpretation Comments UA Glucose (test code = UA Glucose) 250 mg/dL [facility] AND [id number] 23:17:00 Test Item Value Reference Range Interpretation Comments UA Ketones (test code Negative *NA*(04/25/16 = UA Ketones) 6:17 PM) [facility] AND [id number] 23:17:00 Test Item Value Reference Range Interpretation Comments UA Bili (test code = Negative *NA*(04/25/16 UA Bili) 6:17 PM) [facility] AND [id number] 23:17:00 Test Item Value Reference Range Interpretation Comments UA Blood (test code = Negative (04/25/16 6:17 UA Blood) PM) [facility] AND [id number] 23:17:00 Test Item Value Reference Range Interpretation Comments UA Urobilinogen (test code = UA 0.2 0.1-1.0 Urobilinogen) [facility] AND [id number] 23:17:00 Test Item Value Reference Range Interpretation Comments UA Nitrite (test code Negative (04/25/16 6:17 = UA Nitrite) PM) [facility] AND [id number] 23:17:00 Test Item Value Reference Range Interpretation Comments UA Color (test code = Yellow *NA*(04/25/16 UA Color) 6:17 PM) [facility] [id number] 23:17:00 Test Item Value Reference Range Interpretation Comments UA Turbidity (test code = Clear (04/25/16 6:17 UA Turbidity) PM) [facility] [id number] 23:17:00 Test Item Value Reference Range Interpretation Comments UA Spec Grav (test code = UA Spec 1.020 1 Grav) [facility] HospitalTastyNow.comCARTouchtown Inc.AC [id number] 13:55:00 Test Item Value Reference Range Interpretation Comments Troponin-I (test code no gt See_Comment [Auto mated message] The = Troponin-I) system which g enerated this result transmit vale reference range : <=0.40. The reference r shashi was not used to interpr et this result as olivia l/abnormal. [facility] [id number] 13:55:00 Test Item Value Reference Range Interpretation Comments CK MB (test code = CK MB) 0.8 0.5-3.6 [facility] HospitalTastyNow.comCARTouchtown Inc.AC [id number] 13:55:00 Test Item Value Reference Range Interpretation Comments Total CK (test code = Total CK) 60 12-191 [facility]AC [id number] 13:55:00 Test Item Value Reference Range Interpretation Comments CK-MB INDEX (test 1.3 See_Comment [Automate d message] The code = CK-MB INDEX) system w [facility] generated this result transmit vale reference range : <=2.5. The reference range was not used to interpr et this result as olivia l/abnormal. [facility] [id number] 13:55:00 Test Item Value Reference Range Interpretation Comments Troponin-I (test code no gt See_Comment [Auto mated message] The = Troponin-I) system which g enerated this result transmit vale reference range : <=0.40. The reference r shashi was not used to interpr et this result as olivia l/abnormal. [facility] [id number] 13:55:00 Test Item Value Reference Range Interpretation Comments CK MB (test code = CK MB) 0.8 0.5-3.6 [facility] HermannCARDIAC [id number] 13:55:00 Test Item Value Reference Range Interpretation Comments Total CK (test code = Total CK) 60 12-191 [facility] SpecifiedByannCARDIAC [id number] 13:55:00 Test Item Value Reference Range Interpretation Comments CK-MB INDEX (test 1.3 See_Comment [Automate d message] The code = CK-MB INDEX) system w [employer] generated this result transmit vale reference range : <=2.5. The reference range was not used to interpr et this result as olivia l/abnormal. [facility] [id number] 13:55:00 Test Item Value Reference Range Interpretation Comments Troponin-I (test code no gt See_Comment [Auto mated message] The = Troponin-I) system which g enerated this result transmit vale reference range : <=0.40. The reference r shashi was not used to interpr et this result as olivia l/abnormal. [facility] [id number] 13:55:00 Test Item Value Reference Range Interpretation Comments CK MB (test code = CK MB) 0.8 0.5-3.6 [facility] [employer]onoCloud[employer]ARTouch[employer]AC [id number] 13:55:00 Test Item Value Reference Range Interpretation Comments Total CK (test code = Total CK) 60 191 [facility] [id number] 13:55:00 Test Item Value Reference Range Interpretation Comments CK-MB INDEX (test 1.3 See_Comment [Automate d message] The code = CK-MB INDEX) system w [employer] generated this result transmit vale reference range : <=2.5. The reference range was not used to interpr et this result as olivia l/abnormal. [facility] [id number] 12:30:00 Test Item Value Reference Range Interpretation Comments Troponin-I (test code no gt See_Comment [Auto mated message] The = Troponin-I) system which g enerated this result transmit vale reference range : <=0.40. The reference r shashi was not used to interpr et this result as olivia l/abnormal. [employer] [id number] 12:30:00 Test Item Value Reference Range Interpretation Comments Total CK (test code = Total CK) 66 12-191 [facility]annCARDI[facility] [id number] 12:30:00 Test Item Value Reference Range Interpretation Comments CK MB (test code = CK MB) 0.6 0.5-3.6 [facility] [id number] 12:30:00 Test Item Value Reference Range Interpretation Comments CK-MB INDEX (test 0.9 See_Comment [Automate d message] The code = CK-MB INDEX) system w [facility] generated this result transmit vale reference range : <=2.5. The reference range was not used to interpr et this result as olivia l/abnormal. [facility] [employer] [id number] 12:30:00 Test Item Value Reference Range Interpretation Comments eGFR (test code = eGFR) 103 [facility] [employer] [id number] 12:30:00 Test Item Value Reference Range Interpretation Comments AGAP (test code = AGAP) 12.0 10.0-20.0 [facility] [employer] [id number] 12:30:00 Test Item Value Reference Range Interpretation Comments Globulin (test code = Globulin) 4.4 2.7-4.2 [facility] [employer] [id number] 12:30:00 Test Item Value Reference Range Interpretation Comments B/C Ratio (test code = B/C Ratio) 14 6-25 [facility] [employer] [id number] 12:30:00 Test Item Value Reference Range Interpretation Comments A/G Ratio (test code = A/G Ratio) 0.8 0.7-1.6 [facility] [employer] [id number] 12:30:00 Test Item Value Reference Range Interpretation Comments Calcium Lvl (test code = Calcium Lvl) 8.8 8.5-10.5 [facility] [employer] [id number] 12:30:00 Test Item Value Reference Range Interpretation Comments Bili Total (test code = Bili Total) 0.6 0.2-1.3 [facility] [employer] [id number] 12:30:00 Test Item Value Reference Range Interpretation Comments Total Protein (test code = Total 7.8 6.4-8.4 Protein) [facility] [employer] [id number] 12:30:00 Test Item Value Reference Range Interpretation Comments ASPARTATE TRANSAMINASE 16 See_Comment [Aut omated message] (test code = ASPARTATE The s ystem which TRANSAMINASE) generated this result transmitted ref erence range: <=37. Th e reference range was not used to interpr et this result as normal/abnormal . [facility]2016-09-13 12:30:00 Test Item Value Reference Range Interpretation Comments Alk Phos (test code = Alk Phos) 128 39-136 [facility]2016-09-13 12:30:00 Test Item Value Reference Range Interpretation Comments Glucose Lvl (test code = Glucose Lvl) 97 70-99 [facility]2016-09-13 12:30:00 Test Item Value Reference Range Interpretation Comments Creatinine Lvl (test code = Creatinine 0.88 0.50-1.40 Lvl) [facility]2016-09-13 12:30:00 Test Item Value Reference Range Interpretation Comments BUN (test code = BUN) 12 7-22 [facility]2016-09-13 12:30:00 Test Item Value Reference Range Interpretation Comments Sodium Lvl (test code = Sodium Lvl) 138 135-145 [facility]2016-09-13 12:30:00 Test Item Value Reference Range Interpretation Comments ALANINE AMINOTRANSFERASE 32 See_Comment [A utomated message] (test code = ALANINE The sys tem which AMINOTRANSFERASE) generated this result transmitted ref erence range: <=65. Th e reference range was not used to int erpret this result as normal/abnormal . [facility]2016-09-13 12:30:00 Test Item Value Reference Range Interpretation Comments Albumin Lvl (test code = Albumin Lvl) 3.4 3.5-5.0 [facility]2016-09-13 12:30:00 Test Item Value Reference Range Interpretation Comments Potassium Lvl (test code = Potassium 4.0 3.5-5.1 Lvl) [facility]2016-09-13 12:30:00 Test Item Value Reference Range Interpretation Comments Chloride Lvl (test code = Chloride Lvl) 105 95-109 [facility]2016-09-13 12:30:00 Test Item Value Reference Range Interpretation Comments CO2 (test code = CO2) 25 24-32 [facility]ufmzsrFDCHLVNFZT2948-77-43 12:30:00 Test Item Value Reference Range Interpretation Comments Platelet (test code = Platelet) 294 133-450 [facility] RockGsvagocVIWDQHNZED5456-34-62 12:30:00 Test Item Value Reference Range Interpretation Comments MPV (test code = MPV) 7.4 7.4-10.4 [facility] RockVamoqcgNMWLMMULHA6193-70-46 12:30:00 Test Item Value Reference Range Interpretation Comments WBC X 10x3 (test code = WBC X 10x3) 10.0 3.7-10.4 [facility] RockJcvbybbSPVTHWHGNN0047-41-49 12:30:00 Test Item Value Reference Range Interpretation Comments RDW (test code = RDW) 16.6 11.5-14.5 [facility] RockRytnmzyLTRCMIJFAG9176-13-18 12:30:00 Test Item Value Reference Range Interpretation Comments MCH (test code = MCH) 24.1 pg 27.0-31.0 [facility] RockYkaetzkEHTDZVXOJY5382-41-12 12:30:00 Test Item Value Reference Range Interpretation Comments MCHC (test code = MCHC) 33.4 32.0-36.0 [facility] RockTbpqqeqMYXHLDUANH9135-07-76 12:30:00 Test Item Value Reference Range Interpretation Comments MCV (test code = MCV) 72.2 80.0-94.0 [facility] RockVfupfwoGGWGBWJTEJ5488-20-62 12:30:00 Test Item Value Reference Range Interpretation Comments Hct (test code = Hct) 38.1 42.0-54.0 [facility] RockSkbzfopFZCQSLUYRA6563-86-96 12:30:00 Test Item Value Reference Range Interpretation Comments RBC X 10x6 (test code = RBC X 10x6) 5.28 4.70-6.10 [facility] RockSwvsjxbOPYAFVWKHQ4895-75-96 12:30:00 Test Item Value Reference Range Interpretation Comments Hgb (test code = Hgb) 12.7 14.0-18.0 [facility] RockRsyessvDVHIINGZZF2773-61-66 12:30:00 Test Item Value Reference Range Interpretation Comments Microcyte (test code = 1+ *ABN*(03/05/16 Microcyte) 7:30 AM) [facility] RockSdmqtonTYCGOMRLPQ3598-57-85 12:30:00 Test Item Value Reference Range Interpretation Comments Basophils # (test code 0.1 See_Comment [Aut omated message] The = Basophils #) system which generated this result tra nsmitted reference range : <=0.2. The reference r shashi was not used to int erpret this result as normal/abnormal . [facility] RockJfkkcpoCHCJTVAKUA9324-72-25 12:30:00 Test Item Value Reference Range Interpretation Comments Monocytes # (test code 0.7 See_Comment [Aut omated message] The = Monocytes #) system which generated this result tra nsmitted reference range : <=0.8. The reference r shashi was not used to int erpret this result as normal/abnormal . [facility] RockSztnxtaGAHVDDXBEE2686-34-09 12:30:00 Test Item Value Reference Range Interpretation Comments Eosinophils # (test code 0.1 See_Comment [A utomated message] The = Eosinophils #) system whic h generated this result tra nsmitted reference range : <=0.5. The reference r shashi was not used to int erpret this result as normal/abnormal . [facility] RockTzqjzdtDKWPKANEIB8886-66-46 12:30:00 Test Item Value Reference Range Interpretation Comments Segs-Bands # (test code = Segs-Bands #) 7.5 1.5-8.1 [facility] RockXhwuoczBZPWTPBZYR1501-11-73 12:30:00 Test Item Value Reference Range Interpretation Comments Lymphocytes # (test code = Lymphocytes 1.6 1.0-5.5 #) [facility] RockEyjqigqKZLIULWRWZ8402-66-72 12:30:00 Test Item Value Reference Range Interpretation Comments Eosinophils (test code = 1.2 See_Comment [A utomated message] The Eosinophils) system which ge nerated this result tra nsmitted reference range : <=4.0. The reference r shashi was not used to int erpret this result as normal/abnormal . [facility] RockJwawpowSZZRXPMZGP0704-79-30 12:30:00 Test Item Value Reference Range Interpretation Comments Basophils (test code = 0.6 See_Comment [Aut omated message] The Basophils) system which ge nerated this result tra nsmitted reference range : <=1.0. The reference r shashi was not used to int erpret this result as normal/abnormal . [facility] RockQeysxcbDCTPPRVAVO7126-68-73 12:30:00 Test Item Value Reference Range Interpretation Comments Segs (test code = Segs) 75.1 45.0-75.0 [facility] RockWbcpaewYFIRUDKVFZ2591-57-07 12:30:00 Test Item Value Reference Range Interpretation Comments Monocytes (test code = Monocytes) 7.4 2.0-12.0 [facility] XrrqlkhWFZCGASJZD2871-07-94 12:30:00 Test Item Value Reference Range Interpretation Comments Lymphocytes (test code = Lymphocytes) 15.7 20.0-40.0 [facility]ARD[facility] WLHKJYQ7522-07-36 12:30:00 Test Item Value Reference Range Interpretation Comments Troponin-I (test code no gt See_Comment [Auto mated message] The = Troponin-I) system which g enerated this result transmit vale reference range : <=0.40. The reference r shashi was not used to interpr et this result as olivia l/abnormal. [facility] [employer] JBVREKW7034-44-48 12:30:00 Test Item Value Reference Range Interpretation Comments Total CK (test code = Total CK) 66 12-191 [facility] [employer] MIZRPGA0841-87-40 12:30:00 Test Item Value Reference Range Interpretation Comments CK MB (test code = CK MB) 0.6 0.5-3.6 [facility] [employer] [id number] 12:30:00 Test Item Value Reference Range Interpretation Comments CK-MB INDEX (test 0.9 See_Comment [Automate d message] The code = CK-MB INDEX) system w [facility] generated this result transmit vale reference range : <=2.5. The reference range was not used to interpr et this result as olivia l/abnormal. [facility] [employer] [id number] 12:30:00 Test Item Value Reference Range Interpretation Comments eGFR (test code = eGFR) 103 [facility] [employer] [id number] 12:30:00 Test Item Value Reference Range Interpretation Comments AGAP (test code = AGAP) 12.0 10.0-20.0 [facility] [id number] 12:30:00 Test Item Value Reference Range Interpretation Comments Globulin (test code = Globulin) 4.4 2.7-4.2 [facility] [id number] 12:30:00 Test Item Value Reference Range Interpretation Comments B/C Ratio (test code = B/C Ratio) 14 6-25 [facility] [employer] [facility] [id number] 12:30:00 Test Item Value Reference Range Interpretation Comments A/G Ratio (test code = A/G Ratio) 0.8 0.7-1.6 [facility]2016-09-13 12:30:00 Test Item Value Reference Range Interpretation Comments Calcium Lvl (test code = Calcium Lvl) 8.8 8.5-10.5 [facility]2016-09-13 12:30:00 Test Item Value Reference Range Interpretation Comments Bili Total (test code = Bili Total) 0.6 0.2-1.3 [facility]2016-09-13 12:30:00 Test Item Value Reference Range Interpretation Comments Total Protein (test code = Total 7.8 6.4-8.4 Protein) [facility]2016-09-13 12:30:00 Test Item Value Reference Range Interpretation Comments ASPARTATE TRANSAMINASE 16 See_Comment [Aut omated message] (test code = ASPARTATE The s ystem which TRANSAMINASE) generated this result transmitted ref erence range: <=37. Th e reference range was not used to interpr et this result as normal/abnormal . [facility]2016-09-13 12:30:00 Test Item Value Reference Range Interpretation Comments Alk Phos (test code = Alk Phos) 128 39-136 [facility]2016-09-13 12:30:00 Test Item Value Reference Range Interpretation Comments Glucose Lvl (test code = Glucose Lvl) 97 70-99 [facility]2016-09-13 12:30:00 Test Item Value Reference Range Interpretation Comments Creatinine Lvl (test code = Creatinine 0.88 0.50-1.40 Lvl) [facility]2016-09-13 12:30:00 Test Item Value Reference Range Interpretation Comments BUN (test code = BUN) 12 7-22 [facility]2016-09-13 12:30:00 Test Item Value Reference Range Interpretation Comments Sodium Lvl (test code = Sodium Lvl) 138 135-145 [facility]2016-09-13 12:30:00 Test Item Value Reference Range Interpretation Comments ALANINE AMINOTRANSFERASE 32 See_Comment [A utomated message] (test code = ALANINE The sys tem which AMINOTRANSFERASE) generated this result transmitted ref erence range: <=65. Th e reference range was not used to int erpret this result as normal/abnormal . [facility]2016-09-13 12:30:00 Test Item Value Reference Range Interpretation Comments Albumin Lvl (test code = Albumin Lvl) 3.4 3.5-5.0 [facility]2016-09-13 12:30:00 Test Item Value Reference Range Interpretation Comments Potassium Lvl (test code = Potassium 4.0 3.5-5.1 Lvl) [facility]2016-09-13 12:30:00 Test Item Value Reference Range Interpretation Comments Chloride Lvl (test code = Chloride Lvl) 105 95-109 [facility]2016-09-13 12:30:00 Test Item Value Reference Range Interpretation Comments CO2 (test code = CO2) 25 24-32 [facility] RockYliqcixTRPLQQUMYL0308-47-12 12:30:00 Test Item Value Reference Range Interpretation Comments Platelet (test code = Platelet) 294 133-450 [facility] RockQfmeldsCDCPCONJUW2466-09-66 12:30:00 Test Item Value Reference Range Interpretation Comments MPV (test code = MPV) 7.4 7.4-10.4 [facility] RockUrhdufiIYAWZTKPKT3338-25-66 12:30:00 Test Item Value Reference Range Interpretation Comments WBC X 10x3 (test code = WBC X 10x3) 10.0 3.7-10.4 [facility] RockSbmjhcjXBIQGOZYOU1227-67-53 12:30:00 Test Item Value Reference Range Interpretation Comments RDW (test code = RDW) 16.6 11.5-14.5 [facility] RockOclhskeVSGEPAYDXN0910-97-31 12:30:00 Test Item Value Reference Range Interpretation Comments MCH (test code = MCH) 24.1 pg 27.0-31.0 [facility] RockAekbklsXABLTNMPZF6800-57-82 12:30:00 Test Item Value Reference Range Interpretation Comments MCHC (test code = MCHC) 33.4 32.0-36.0 [facility] RockBjfxirzVMMBYCOVFN7508-68-87 12:30:00 Test Item Value Reference Range Interpretation Comments MCV (test code = MCV) 72.2 80.0-94.0 [facility] RockJaljyxgBQIEAFPVJZ5293-10-08 12:30:00 Test Item Value Reference Range Interpretation Comments Hct (test code = Hct) 38.1 42.0-54.0 [facility] RockUdbtsiiQQKSJLDLOK1915-95-24 12:30:00 Test Item Value Reference Range Interpretation Comments RBC X 10x6 (test code = RBC X 10x6) 5.28 4.70-6.10 [facility] RockNdczyqeDJERTJNBGL6785-73-58 12:30:00 Test Item Value Reference Range Interpretation Comments Hgb (test code = Hgb) 12.7 14.0-18.0 [facility] RockAvflrlgIWFNFKJPUR8902-06-26 12:30:00 Test Item Value Reference Range Interpretation Comments Microcyte (test code = 1+ *ABN*(03/05/16 Microcyte) 7:30 AM) [facility] RockNyoscxsDNSQLWGIZI6735-79-48 12:30:00 Test Item Value Reference Range Interpretation Comments Basophils # (test code 0.1 See_Comment [Aut omated message] The = Basophils #) system which generated this result tra nsmitted reference range : <=0.2. The reference r shashi was not used to int erpret this result as normal/abnormal . [facility] RockOovbkmiNBVDXULAZD5921-03-36 12:30:00 Test Item Value Reference Range Interpretation Comments Monocytes # (test code 0.7 See_Comment [Aut omated message] The = Monocytes #) system which generated this result tra nsmitted reference range : <=0.8. The reference r shashi was not used to int erpret this result as normal/abnormal . [facility] RockZcywmxrZGEZDKJBKI1421-51-72 12:30:00 Test Item Value Reference Range Interpretation Comments Eosinophils # (test code 0.1 See_Comment [A utomated message] The = Eosinophils #) system whic h generated this result tra nsmitted reference range : <=0.5. The reference r shashi was not used to int erpret this result as normal/abnormal . [facility] RockQwassbkOCNOCYBXHP6981-63-22 12:30:00 Test Item Value Reference Range Interpretation Comments Segs-Bands # (test code = Segs-Bands #) 7.5 1.5-8.1 [facility] RockExbksviDCMTMTEIOP6434-35-15 12:30:00 Test Item Value Reference Range Interpretation Comments Lymphocytes # (test code = Lymphocytes 1.6 1.0-5.5 #) [facility] RockPsfbxjyDYQNLGBOJV5832-81-78 12:30:00 Test Item Value Reference Range Interpretation Comments Eosinophils (test code = 1.2 See_Comment [A utomated message] The Eosinophils) system which ge nerated this result tra nsmitted reference range : <=4.0. The reference r shashi was not used to int erpret this result as normal/abnormal . [facility] CzrnxegMMWJGFBCWW5814-20-22 12:30:00 Test Item Value Reference Range Interpretation Comments Basophils (test code = 0.6 See_Comment [Aut omated message] The Basophils) system which ge nerated this result tra nsmitted reference range : <=1.0. The reference r shashi was not used to int erpret this result as normal/abnormal . [facility] OudtjhhUXLZTZYVMT0668-20-84 12:30:00 Test Item Value Reference Range Interpretation Comments Segs (test code = Segs) 75.1 45.0-75.0 [facility] MeazyeqGKKXRGNWNV5453-24-36 12:30:00 Test Item Value Reference Range Interpretation Comments Monocytes (test code = Monocytes) 7.4 2.0-12.0 [facility] AlhqrqnCUZHNHLCPX4060-91-27 12:30:00 Test Item Value Reference Range Interpretation Comments Lymphocytes (test code = Lymphocytes) 15.7 20.0-40.0 [facility] bulletn.2016-09-13 12:30:00 Test Item Value Reference Range Interpretation Comments Troponin-I (test code no gt See_Comment [Auto mated message] The = Troponin-I) system which g enerated this result transmit vale reference range : <=0.40. The reference r shashi was not used to interpr et this result as olivia l/abnormal. [facility] bulletn.2016-09-13 12:30:00 Test Item Value Reference Range Interpretation Comments Total CK (test code = Total CK) 66 12-191 [facility] bulletn.2016-09-13 12:30:00 Test Item Value Reference Range Interpretation Comments CK MB (test code = CK MB) 0.6 0.5-3.6 [facility] bulletn.2016-09-13 12:30:00 Test Item Value Reference Range Interpretation Comments CK-MB INDEX (test 0.9 See_Comment [Automate d message] The code = CK-MB INDEX) system w [facility] generated this result transmit vale reference range : <=2.5. The reference range was not used to interpr et this result as olivia l/abnormal. [facility]2016-09-13 12:30:00 Test Item Value Reference Range Interpretation Comments eGFR (test code = eGFR) 103 [facility]2016-09-13 12:30:00 Test Item Value Reference Range Interpretation Comments AGAP (test code = AGAP) 12.0 10.0-20.0 [facility]2016-09-13 12:30:00 Test Item Value Reference Range Interpretation Comments Globulin (test code = Globulin) 4.4 2.7-4.2 [facility]2016-09-13 12:30:00 Test Item Value Reference Range Interpretation Comments B/C Ratio (test code = B/C Ratio) 14 6-25 [facility]2016-09-13 12:30:00 Test Item Value Reference Range Interpretation Comments A/G Ratio (test code = A/G Ratio) 0.8 0.7-1.6 [facility]2016-09-13 12:30:00 Test Item Value Reference Range Interpretation Comments Calcium Lvl (test code = Calcium Lvl) 8.8 8.5-10.5 [facility]2016-09-13 12:30:00 Test Item Value Reference Range Interpretation Comments Bili Total (test code = Bili Total) 0.6 0.2-1.3 [facility]2016-09-13 12:30:00 Test Item Value Reference Range Interpretation Comments Total Protein (test code = Total 7.8 6.4-8.4 Protein) [facility]2016-09-13 12:30:00 Test Item Value Reference Range Interpretation Comments ASPARTATE TRANSAMINASE 16 See_Comment [Aut omated message] (test code = ASPARTATE The s ystem which TRANSAMINASE) generated this result transmitted ref erence range: <=37. Th e reference range was not used to interpr et this result as normal/abnormal . [facility]2016-09-13 12:30:00 Test Item Value Reference Range Interpretation Comments Alk Phos (test code = Alk Phos) 128 39-136 [facility]2016-09-13 12:30:00 Test Item Value Reference Range Interpretation Comments Glucose Lvl (test code = Glucose Lvl) 97 70-99 [facility]2016-09-13 12:30:00 Test Item Value Reference Range Interpretation Comments Creatinine Lvl (test code = Creatinine 0.88 0.50-1.40 Lvl) [facility]2016-09-13 12:30:00 Test Item Value Reference Range Interpretation Comments BUN (test code = BUN) 12 7-22 [facility]2016-09-13 12:30:00 Test Item Value Reference Range Interpretation Comments Sodium Lvl (test code = Sodium Lvl) 138 135-145 [facility]2016-09-13 12:30:00 Test Item Value Reference Range Interpretation Comments ALANINE AMINOTRANSFERASE 32 See_Comment [A utomated message] (test code = ALANINE The sys tem which AMINOTRANSFERASE) generated this result transmitted ref erence range: <=65. Th e reference range was not used to int erpret this result as normal/abnormal . [facility]2016-09-13 12:30:00 Test Item Value Reference Range Interpretation Comments Albumin Lvl (test code = Albumin Lvl) 3.4 3.5-5.0 [facility]2016-09-13 12:30:00 Test Item Value Reference Range Interpretation Comments Potassium Lvl (test code = Potassium 4.0 3.5-5.1 Lvl) [facility]2016-09-13 12:30:00 Test Item Value Reference Range Interpretation Comments Chloride Lvl (test code = Chloride Lvl) 105 95-109 [facility]2016-09-13 12:30:00 Test Item Value Reference Range Interpretation Comments CO2 (test code = CO2) 25 24-32 [facility] RockXfgyppaPOEQFKGQQE3716-05-38 12:30:00 Test Item Value Reference Range Interpretation Comments Platelet (test code = Platelet) 294 133-450 [facility] RockWmlzlvnCTZPCXYUDQ8817-72-70 12:30:00 Test Item Value Reference Range Interpretation Comments MPV (test code = MPV) 7.4 7.4-10.4 [facility] RockFremhdiIDXCDIFRYS7353-19-75 12:30:00 Test Item Value Reference Range Interpretation Comments WBC X 10x3 (test code = WBC X 10x3) 10.0 3.7-10.4 [facility] RockQklwwxjXCWUCZOZZO7881-42-09 12:30:00 Test Item Value Reference Range Interpretation Comments RDW (test code = RDW) 16.6 11.5-14.5 [facility] RockYwxpwkrIXDFHGKPRY7662-88-31 12:30:00 Test Item Value Reference Range Interpretation Comments MCH (test code = MCH) 24.1 pg 27.0-31.0 [facility] RockFentpoqDZUAWOFPWL8175-58-27 12:30:00 Test Item Value Reference Range Interpretation Comments MCHC (test code = MCHC) 33.4 32.0-36.0 [facility] RockChuxqkpSJDCWKOVQH7176-20-46 12:30:00 Test Item Value Reference Range Interpretation Comments MCV (test code = MCV) 72.2 80.0-94.0 [facility] RockCceuskrZJPKGFTCOO1159-67-14 12:30:00 Test Item Value Reference Range Interpretation Comments Hct (test code = Hct) 38.1 42.0-54.0 [facility] RockGrwcwhsWVDJQYUTPX9001-90-45 12:30:00 Test Item Value Reference Range Interpretation Comments RBC X 10x6 (test code = RBC X 10x6) 5.28 4.70-6.10 [facility] RockZexakxjJWABUOKSNY4137-48-11 12:30:00 Test Item Value Reference Range Interpretation Comments Hgb (test code = Hgb) 12.7 14.0-18.0 [facility] RockUbolrdaFJMNZBQNNZ5852-03-87 12:30:00 Test Item Value Reference Range Interpretation Comments Microcyte (test code = 1+ *ABN*(03/05/16 Microcyte) 7:30 AM) [facility] RockGekmcnnVXLEYGOKJJ1471-07-67 12:30:00 Test Item Value Reference Range Interpretation Comments Basophils # (test code 0.1 See_Comment [Aut omated message] The = Basophils #) system which generated this result tra nsmitted reference range : <=0.2. The reference r shashi was not used to int erpret this result as normal/abnormal . [facility] RockWzcuqfzCQKGZWWPHS1917-15-30 12:30:00 Test Item Value Reference Range Interpretation Comments Monocytes # (test code 0.7 See_Comment [Aut omated message] The = Monocytes #) system which generated this result tra nsmitted reference range : <=0.8. The reference r shashi was not used to int erpret this result as normal/abnormal . [facility] RockRrculjbAWAKTGGWMI3114-77-77 12:30:00 Test Item Value Reference Range Interpretation Comments Eosinophils # (test code 0.1 See_Comment [A utomated message] The = Eosinophils #) system whic h generated this result tra nsmitted reference range : <=0.5. The reference r shashi was not used to int erpret this result as normal/abnormal . [facility] RockCkqtgvqKUWBUAGCIH9563-57-74 12:30:00 Test Item Value Reference Range Interpretation Comments Segs-Bands # (test code = Segs-Bands #) 7.5 1.5-8.1 [facility] RockKvlneldCMSFXWGSXB7862-97-87 12:30:00 Test Item Value Reference Range Interpretation Comments Lymphocytes # (test code = Lymphocytes 1.6 1.0-5.5 #) [facility] RockMavamewUQOPNQNHJT5809-18-15 12:30:00 Test Item Value Reference Range Interpretation Comments Eosinophils (test code = 1.2 See_Comment [A utomated message] The Eosinophils) system which ge nerated this result tra nsmitted reference range : <=4.0. The reference r shashi was not used to int erpret this result as normal/abnormal . [facility] RockKxmrggcWBLIXFBFAT3688-21-26 12:30:00 Test Item Value Reference Range Interpretation Comments Basophils (test code = 0.6 See_Comment [Aut omated message] The Basophils) system which ge nerated this result tra nsmitted reference range : <=1.0. The reference r shashi was not used to int erpret this result as normal/abnormal . [facility] RockZjajizdBGMQTCGTCL2283-29-59 12:30:00 Test Item Value Reference Range Interpretation Comments Segs (test code = Segs) 75.1 45.0-75.0 [facility] RockKroxjsmLSOEKPQWTK1621-73-56 12:30:00 Test Item Value Reference Range Interpretation Comments Monocytes (test code = Monocytes) 7.4 2.0-12.0 [facility] RockZynwoptICZBHLCIXE2210-52-74 12:30:00 Test Item Value Reference Range Interpretation Comments Lymphocytes (test code = Lymphocytes) 15.7 20.0-40.0 [facility]2016-09-10 13:22:00 Test Item Value Reference Range Interpretation Comments UA RBC (test code = 0-2 /HPF See_Comment [Automa vale message] The UA RBC) system which ge nerated this result tra nsmitted reference range : <=2. The reference range was not used to interpr et this result as olivia l/abnormal. [facility] AND [id number] 13:22:00 Test Item Value Reference Range Interpretation Comments UA Sq Epi (test code = None Seen (03/02/16 8:22 UA Sq Epi) AM) [facility]ly [facility] AND [id number] 13:22:00 Test Item Value Reference Range Interpretation Comments UA WBC (test code = UA None Seen (03/02/16 8:22 WBC) AM) [facility] AND [id number] 13:22:00 Test Item Value Reference Range Interpretation Comments UA pH (test code = UA pH) 6.0 1 5.0-8.0 [facility] AND [id number] 13:22:00 Test Item Value Reference Range Interpretation Comments UA Protein (test code = UA Negative mg/dL Protein) [facility] AND [id number] 13:22:00 Test Item Value Reference Range Interpretation Comments UA Glucose (test code = UA Negative mg/dL Glucose) [facility] AND [id number] 13:22:00 Test Item Value Reference Range Interpretation Comments UA Ketones (test code = UA Negative mg/dL Ketones) [facility] AND [id number] 13:22:00 Test Item Value Reference Range Interpretation Comments UA Bili (test code = Negative *NA*(03/02/16 UA Bili) 8:22 AM) [facility] AND [id number] 13:22:00 Test Item Value Reference Range Interpretation Comments UA Color (test code = Yellow *NA*(03/02/16 UA Color) 8:22 AM) [facility] AND [id number] 13:22:00 Test Item Value Reference Range Interpretation Comments UA Turbidity (test code = Clear (03/02/16 8:22 UA Turbidity) AM) [facility] AND [id number] 13:22:00 Test Item Value Reference Range Interpretation Comments UA Spec Grav (test code = UA Spec 1.015 1 Grav) [facility] AND [id number] 13:22:00 Test Item Value Reference Range Interpretation Comments UA Blood (test code = Negative (03/02/16 8:22 UA Blood) AM) [facility] AND [id number] 13:22:00 Test Item Value Reference Range Interpretation Comments UA Urobilinogen (test code = UA 0.2 0.1-1.0 Urobilinogen) [facility] AND [id number] 13:22:00 Test Item Value Reference Range Interpretation Comments UA Nitrite (test code Negative (03/02/16 8:22 = UA Nitrite) AM) [facility] AND [id number] 13:22:00 Test Item Value Reference Range Interpretation Comments UA Leuk Est (test Negative (03/02/16 8:22 code = UA Leuk Est) AM) [facility] AND [id number] 13:22:00 Test Item Value Reference Range Interpretation Comments UA RBC (test code = 0-2 /HPF See_Comment [Automa vale message] The UA RBC) system which ge nerated this result tra nsmitted reference range : <=2. The reference range was not used to interpr et this result as olivia l/abnormal. [facility] AND [id number] 13:22:00 Test Item Value Reference Range Interpretation Comments UA Sq Epi (test code = None Seen (03/02/16 8:22 UA Sq Epi) AM) [facility] AND [id number] 13:22:00 Test Item Value Reference Range Interpretation Comments UA WBC (test code = UA None Seen (03/02/16 8:22 WBC) AM) [facility] AND [id number] 13:22:00 Test Item Value Reference Range Interpretation Comments UA pH (test code = UA pH) 6.0 1 5.0-8.0 [facility] AND [id number] 13:22:00 Test Item Value Reference Range Interpretation Comments UA Protein (test code = UA Negative mg/dL Protein) [facility] AND [id number] 13:22:00 Test Item Value Reference Range Interpretation Comments UA Glucose (test code = UA Negative mg/dL Glucose) [facility] AND [id number] 13:22:00 Test Item Value Reference Range Interpretation Comments UA Ketones (test code = UA Negative mg/dL Ketones) [facility] AND [id number] 13:22:00 Test Item Value Reference Range Interpretation Comments UA Bili (test code = Negative *NA*(03/02/16 UA Bili) 8:22 AM) [facility] AND [id number] 13:22:00 Test Item Value Reference Range Interpretation Comments UA Color (test code = Yellow *NA*(03/02/16 UA Color) 8:22 AM) [facility] AND [id number] 13:22:00 Test Item Value Reference Range Interpretation Comments UA Turbidity (test code = Clear (03/02/16 8:22 UA Turbidity) AM) [facility] AND [id number] 13:22:00 Test Item Value Reference Range Interpretation Comments UA Spec Grav (test code = UA Spec 1.015 1 Grav) [facility] AND [id number] 13:22:00 Test Item Value Reference Range Interpretation Comments UA Blood (test code = Negative (03/02/16 8:22 UA Blood) AM) [facility] AND [id number] 13:22:00 Test Item Value Reference Range Interpretation Comments UA Urobilinogen (test code = UA 0.2 0.1-1.0 Urobilinogen) [facility] AND [id number] 13:22:00 Test Item Value Reference Range Interpretation Comments UA Nitrite (test code Negative (03/02/16 8:22 = UA Nitrite) AM) [facility] AND [id number] 13:22:00 Test Item Value Reference Range Interpretation Comments UA Leuk Est (test Negative (03/02/16 8:22 code = UA Leuk Est) AM) [facility] AND [id number] 13:22:00 Test Item Value Reference Range Interpretation Comments UA RBC (test code = 0-2 /HPF See_Comment [Automa vale message] The UA RBC) system which ge nerated this result tra nsmitted reference range : <=2. The reference range was not used to interpr et this result as olivia l/abnormal. [facility] AND [id number] 13:22:00 Test Item Value Reference Range Interpretation Comments UA Sq Epi (test code = None Seen (03/02/16 8:22 UA Sq Epi) AM) [facility] AND [id number] 13:22:00 Test Item Value Reference Range Interpretation Comments UA WBC (test code = UA None Seen (03/02/16 8:22 WBC) AM) [facility] AND [id number] 13:22:00 Test Item Value Reference Range Interpretation Comments UA pH (test code = UA pH) 6.0 1 5.0-8.0 [facility] AND [id number] 13:22:00 Test Item Value Reference Range Interpretation Comments UA Protein (test code = UA Negative mg/dL Protein) [facility] AND [id number] 13:22:00 Test Item Value Reference Range Interpretation Comments UA Glucose (test code = UA Negative mg/dL Glucose) [facility] AND [id number] 13:22:00 Test Item Value Reference Range Interpretation Comments UA Ketones (test code = UA Negative mg/dL Ketones) [facility] AND [id number] 13:22:00 Test Item Value Reference Range Interpretation Comments UA Bili (test code = Negative *NA*(03/02/16 UA Bili) 8:22 AM) [facility] AND [id number] 13:22:00 Test Item Value Reference Range Interpretation Comments UA Color (test code = Yellow *NA*(03/02/16 UA Color) 8:22 AM) [facility] AND [id number] 13:22:00 Test Item Value Reference Range Interpretation Comments UA Turbidity (test code = Clear (03/02/16 8:22 UA Turbidity) AM) [facility] AND [id number] 13:22:00 Test Item Value Reference Range Interpretation Comments UA Spec Grav (test code = UA Spec 1.015 1 Grav) [facility] AND [id number] 13:22:00 Test Item Value Reference Range Interpretation Comments UA Blood (test code = Negative (03/02/16 8:22 UA Blood) AM) [facility] AND [id number] 13:22:00 Test Item Value Reference Range Interpretation Comments UA Urobilinogen (test code = UA 0.2 0.1-1.0 Urobilinogen) [facility] AND [id number] 13:22:00 Test Item Value Reference Range Interpretation Comments UA Nitrite (test code Negative (03/02/16 8:22 = UA Nitrite) AM) [facility] AND [id number] 13:22:00 Test Item Value Reference Range Interpretation Comments UA Leuk Est (test Negative (03/02/16 8:22 code = UA Leuk Est) AM) [facility]2016-09-10 10:41:00 Test Item Value Reference Range Interpretation Comments A/G Ratio (test code = A/G Ratio) 0.7 0.7-1.6 [facility]2016-09-10 10:41:00 Test Item Value Reference Range Interpretation Comments Globulin (test code = Globulin) 4.6 2.7-4.2 [facility]2016-09-10 10:41:00 Test Item Value Reference Range Interpretation Comments B/C Ratio (test code = B/C Ratio) 16 6-25 [facility]2016-09-10 10:41:00 Test Item Value Reference Range Interpretation Comments AGAP (test code = AGAP) 10.4 10.0-20.0 [facility]2016-09-10 10:41:00 Test Item Value Reference Range Interpretation Comments Total Protein (test code = Total 8.0 6.4-8.4 Protein) [facility]2016-09-10 10:41:00 Test Item Value Reference Range Interpretation Comments Bili Total (test code = Bili Total) 0.3 0.2-1.3 [facility]2016-09-10 10:41:00 Test Item Value Reference Range Interpretation Comments Calcium Lvl (test code = Calcium Lvl) 8.7 8.5-10.5 [facility]2016-09-10 10:41:00 Test Item Value Reference Range Interpretation Comments CO2 (test code = CO2) 26 24-32 [facility]2016-09-10 10:41:00 Test Item Value Reference Range Interpretation Comments Chloride Lvl (test code = Chloride Lvl) 106 95-109 [facility]2016-09-10 10:41:00 Test Item Value Reference Range Interpretation Comments Sodium Lvl (test code = Sodium Lvl) 138 135-145 [facility]2016-09-10 10:41:00 Test Item Value Reference Range Interpretation Comments Potassium Lvl (test code = Potassium 4.4 3.5-5.1 Lvl) [facility]2016-09-10 10:41:00 Test Item Value Reference Range Interpretation Comments eGFR (test code = eGFR) 83 [facility]2016-09-10 10:41:00 Test Item Value Reference Range Interpretation Comments ASPARTATE TRANSAMINASE 13 See_Comment [Aut omated message] (test code = ASPARTATE The s ystem which TRANSAMINASE) generated this result transmitted ref erence range: <=37. Th e reference range was not used to interpr et this result as normal/abnormal . [facility]2016-09-10 10:41:00 Test Item Value Reference Range Interpretation Comments Creatinine Lvl (test code = Creatinine 1.07 0.50-1.40 Lvl) [facility]2016-09-10 10:41:00 Test Item Value Reference Range Interpretation Comments BUN (test code = BUN) 17 7-22 [facility]2016-09-10 10:41:00 Test Item Value Reference Range Interpretation Comments Glucose Lvl (test code = Glucose Lvl) 106 70-99 [facility]2016-09-10 10:41:00 Test Item Value Reference Range Interpretation Comments Alk Phos (test code = Alk Phos) 127 39-136 [facility]2016-09-10 10:41:00 Test Item Value Reference Range Interpretation Comments Albumin Lvl (test code = Albumin Lvl) 3.4 3.5-5.0 [facility]2016-09-10 10:41:00 Test Item Value Reference Range Interpretation Comments ALANINE AMINOTRANSFERASE 33 See_Comment [A utomated message] (test code = ALANINE The sys tem which AMINOTRANSFERASE) generated this result transmitted ref erence range: <=65. Th e reference range was not used to int erpret this result as normal/abnormal . [facility]2016-09-10 10:41:00 Test Item Value Reference Range Interpretation Comments Lipase Lvl (test code = Lipase Lvl) 164 73-393 [id number] 10:41:00 Test Item Value Reference Range Interpretation Comments Basophils # (test code 0.1 See_Comment [Aut omated message] The = Basophils #) system which generated this result tra nsmitted reference range : <=0.2. The reference r shashi was not used to int erpret this result as normal/abnormal . [facility] [id number] 10:41:00 Test Item Value Reference Range Interpretation Comments Microcyte (test code = 1+ *ABN*(03/02/16 Microcyte) 5:41 AM) [facility] [id number] 10:41:00 Test Item Value Reference Range Interpretation Comments Monocytes (test code = Monocytes) 6.7 2.0-12.0 [facility] [id number] 10:41:00 Test Item Value Reference Range Interpretation Comments Lymphocytes (test code = Lymphocytes) 21.9 20.0-40.0 [facility] [id number] 10:41:00 Test Item Value Reference Range Interpretation Comments Eosinophils (test code = 1.5 See_Comment [A utomated message] The Eosinophils) system which ge nerated this result tra nsmitted reference range : <=4.0. The reference r shashi was not used to int erpret this result as normal/abnormal . [facility] [id number] 10:41:00 Test Item Value Reference Range Interpretation Comments Segs (test code = Segs) 69.1 45.0-75.0 [facility] [id number] 10:41:00 Test Item Value Reference Range Interpretation Comments Monocytes # (test code 0.8 See_Comment [Aut omated message] The = Monocytes #) system which generated this result tra nsmitted reference range : <=0.8. The reference r shasih was not used to int erpret this result as normal/abnormal . [facility] RockGzffogsRJQMSPWQEH2516-90-34 10:41:00 Test Item Value Reference Range Interpretation Comments Lymphocytes # (test code = Lymphocytes 2.6 1.0-5.5 #) [facility] RockEouuslpHRFSCXIXFJ0472-08-77 10:41:00 Test Item Value Reference Range Interpretation Comments Eosinophils # (test code 0.2 See_Comment [A utomated message] The = Eosinophils #) system ic h generated this result tra nsmitted reference range : <=0.5. The reference r shashi was not used to int erpret this result as normal/abnormal . [facility] RockVorzlgjABCKOPVBVJ3964-74-69 10:41:00 Test Item Value Reference Range Interpretation Comments Segs-Bands # (test code = Segs-Bands #) 8.1 1.5-8.1 [facility] RockMirjtozJJYOZEMZMP7929-37-15 10:41:00 Test Item Value Reference Range Interpretation Comments Basophils (test code = 0.8 See_Comment [Aut omated message] The Basophils) system which ge nerated this result tra nsmitted reference range : <=1.0. The reference r shashi was not used to int erpret this result as normal/abnormal . [facility] RockDkmlhieLLYVWIILJF9436-16-68 10:41:00 Test Item Value Reference Range Interpretation Comments WBC X 10x3 (test code = WBC X 10x3) 11.8 3.7-10.4 [facility] RockPypetklWVSECFMSFJ3352-35-95 10:41:00 Test Item Value Reference Range Interpretation Comments Hct (test code = Hct) 37.4 42.0-54.0 [facility] RockUlvaynkTTTNTGRHCJ4818-65-84 10:41:00 Test Item Value Reference Range Interpretation Comments RBC X 10x6 (test code = RBC X 10x6) 5.18 4.70-6.10 [facility] RockAofaxxwUDFNMGHZQP3267-96-59 10:41:00 Test Item Value Reference Range Interpretation Comments Hgb (test code = Hgb) 12.5 14.0-18.0 [facility] RockQjiyejsALIQDWNTHI5506-33-20 10:41:00 Test Item Value Reference Range Interpretation Comments MCH (test code = MCH) 24.1 pg 27.0-31.0 [facility] RockXvmsqorHNHLCYLHTO7473-19-50 10:41:00 Test Item Value Reference Range Interpretation Comments RDW (test code = RDW) 16.7 11.5-14.5 [facility] RockZwvvllxBLPNWERZUK5333-68-95 10:41:00 Test Item Value Reference Range Interpretation Comments MCHC (test code = MCHC) 33.4 32.0-36.0 [facility] RockXejdtbaUYKLKIAMQI0238-76-36 10:41:00 Test Item Value Reference Range Interpretation Comments MCV (test code = MCV) 72.1 80.0-94.0 [facility] RockAdzvotkDJYWHDJOUE5312-96-30 10:41:00 Test Item Value Reference Range Interpretation Comments MPV (test code = MPV) 7.7 7.4-10.4 [facility] RockCylgcboZBGCQKGQGJ7378-41-35 10:41:00 Test Item Value Reference Range Interpretation Comments Platelet (test code = Platelet) 303 133-450 [facility]2016-09-10 10:41:00 Test Item Value Reference Range Interpretation Comments A/G Ratio (test code = A/G Ratio) 0.7 0.7-1.6 [facility]2016-09-10 10:41:00 Test Item Value Reference Range Interpretation Comments Globulin (test code = Globulin) 4.6 2.7-4.2 [facility]2016-09-10 10:41:00 Test Item Value Reference Range Interpretation Comments B/C Ratio (test code = B/C Ratio) 16 6-25 [facility]2016-09-10 10:41:00 Test Item Value Reference Range Interpretation Comments AGAP (test code = AGAP) 10.4 10.0-20.0 [facility]2016-09-10 10:41:00 Test Item Value Reference Range Interpretation Comments Total Protein (test code = Total 8.0 6.4-8.4 Protein) [facility]2016-09-10 10:41:00 Test Item Value Reference Range Interpretation Comments Bili Total (test code = Bili Total) 0.3 0.2-1.3 [facility]2016-09-10 10:41:00 Test Item Value Reference Range Interpretation Comments Calcium Lvl (test code = Calcium Lvl) 8.7 8.5-10.5 [facility]2016-09-10 10:41:00 Test Item Value Reference Range Interpretation Comments CO2 (test code = CO2) 26 24-32 [facility]2016-09-10 10:41:00 Test Item Value Reference Range Interpretation Comments Chloride Lvl (test code = Chloride Lvl) 106 95-109 [facility]2016-09-10 10:41:00 Test Item Value Reference Range Interpretation Comments Sodium Lvl (test code = Sodium Lvl) 138 135-145 [facility]2016-09-10 10:41:00 Test Item Value Reference Range Interpretation Comments Potassium Lvl (test code = Potassium 4.4 3.5-5.1 Lvl) [facility]2016-09-10 10:41:00 Test Item Value Reference Range Interpretation Comments eGFR (test code = eGFR) 83 [facility]2016-09-10 10:41:00 Test Item Value Reference Range Interpretation Comments ASPARTATE TRANSAMINASE 13 See_Comment [Aut omated message] (test code = ASPARTATE The s ystem which TRANSAMINASE) generated this result transmitted ref erence range: <=37. Th e reference range was not used to interpr et this result as normal/abnormal . [facility]2016-09-10 10:41:00 Test Item Value Reference Range Interpretation Comments Creatinine Lvl (test code = Creatinine 1.07 0.50-1.40 Lvl) [facility]2016-09-10 10:41:00 Test Item Value Reference Range Interpretation Comments BUN (test code = BUN) 17 7-22 [facility]2016-09-10 10:41:00 Test Item Value Reference Range Interpretation Comments Glucose Lvl (test code = Glucose Lvl) 106 70-99 [facility]2016-09-10 10:41:00 Test Item Value Reference Range Interpretation Comments Alk Phos (test code = Alk Phos) 127 39-136 [facility]2016-09-10 10:41:00 Test Item Value Reference Range Interpretation Comments Albumin Lvl (test code = Albumin Lvl) 3.4 3.5-5.0 [facility]2016-09-10 10:41:00 Test Item Value Reference Range Interpretation Comments ALANINE AMINOTRANSFERASE 33 See_Comment [A utomated message] (test code = ALANINE The sys tem which AMINOTRANSFERASE) generated this result transmitted ref erence range: <=65. Th e reference range was not used to int erpret this result as normal/abnormal . [facility]2016-09-10 10:41:00 Test Item Value Reference Range Interpretation Comments Lipase Lvl (test code = Lipase Lvl) 164 73-393 [facility] RockAehbnxnLPIVEULGLC9547-42-72 10:41:00 Test Item Value Reference Range Interpretation Comments Basophils # (test code 0.1 See_Comment [Aut omated message] The = Basophils #) system which generated this result tra nsmitted reference range : <=0.2. The reference r shashi was not used to int erpret this result as normal/abnormal . [facility] RockAythesrDVUYBIFEIE2696-89-70 10:41:00 Test Item Value Reference Range Interpretation Comments Microcyte (test code = 1+ *ABN*(9/10/16 Microcyte) 5:41 AM) [facility] RockQwvhwflWDCZIAYCYW6799-47-49 10:41:00 Test Item Value Reference Range Interpretation Comments Monocytes (test code = Monocytes) 6.7 2.0-12.0 [facility] RockWbtcqapFDXSLRFGVC2553-06-98 10:41:00 Test Item Value Reference Range Interpretation Comments Lymphocytes (test code = Lymphocytes) 21.9 20.0-40.0 [facility] RockVlfywnaNYYYKUGGTD6901-47-66 10:41:00 Test Item Value Reference Range Interpretation Comments Eosinophils (test code = 1.5 See_Comment [A utomated message] The Eosinophils) system which ge nerated this result tra nsmitted reference range : <=4.0. The reference r shashi was not used to int erpret this result as normal/abnormal . [facility] RockIkjceunTWAORMQKZG9877-59-48 10:41:00 Test Item Value Reference Range Interpretation Comments Segs (test code = Segs) 69.1 45.0-75.0 [facility] RockAiafawlQXBMTCVPVU3689-07-98 10:41:00 Test Item Value Reference Range Interpretation Comments Monocytes # (test code 0.8 See_Comment [Aut omated message] The = Monocytes #) system which generated this result tra nsmitted reference range : <=0.8. The reference r shashi was not used to int erpret this result as normal/abnormal . [facility] RockZcvyohqXXSLYMCIKJ0088-82-59 10:41:00 Test Item Value Reference Range Interpretation Comments Lymphocytes # (test code = Lymphocytes 2.6 1.0-5.5 #) [facility] RockVzyztjsAFEMMBSQAN5471-29-54 10:41:00 Test Item Value Reference Range Interpretation Comments Eosinophils # (test code 0.2 See_Comment [A utomated message] The = Eosinophils #) system whic h generated this result tra nsmitted reference range : <=0.5. The reference r shashi was not used to int erpret this result as normal/abnormal . [facility] RockLpfedohGWMPRVBFHR1977-12-19 10:41:00 Test Item Value Reference Range Interpretation Comments Segs-Bands # (test code = Segs-Bands #) 8.1 1.5-8.1 [facility] RockGkwnmnzILLUEUXOQZ4784-80-19 10:41:00 Test Item Value Reference Range Interpretation Comments Basophils (test code = 0.8 See_Comment [Aut omated message] The Basophils) system which ge nerated this result tra nsmitted reference range : <=1.0. The reference r shashi was not used to int erpret this result as normal/abnormal . [facility] RockWcvrsqaNBGCYTCCTJ3661-65-08 10:41:00 Test Item Value Reference Range Interpretation Comments WBC X 10x3 (test code = WBC X 10x3) 11.8 3.7-10.4 [facility] RockMucwycvCBOVWBDMEE7503-52-13 10:41:00 Test Item Value Reference Range Interpretation Comments Hct (test code = Hct) 37.4 42.0-54.0 [facility] RockKssdkbfKBTKGVBNOI7069-86-31 10:41:00 Test Item Value Reference Range Interpretation Comments RBC X 10x6 (test code = RBC X 10x6) 5.18 4.70-6.10 [facility] RockCkxkmwmKCZLRDVVTO7716-87-20 10:41:00 Test Item Value Reference Range Interpretation Comments Hgb (test code = Hgb) 12.5 14.0-18.0 [facility] RockWlhtiywKYUYSTDQTG9430-51-95 10:41:00 Test Item Value Reference Range Interpretation Comments MCH (test code = MCH) 24.1 pg 27.0-31.0 [facility] RockKghkafrFJMZGDGYNW3008-90-01 10:41:00 Test Item Value Reference Range Interpretation Comments RDW (test code = RDW) 16.7 11.5-14.5 [facility] RockLmejrrxNIEFDSJXYV8132-26-94 10:41:00 Test Item Value Reference Range Interpretation Comments MCHC (test code = MCHC) 33.4 32.0-36.0 [facility] RockIecguaqXUOXPOBYDB4569-93-88 10:41:00 Test Item Value Reference Range Interpretation Comments MCV (test code = MCV) 72.1 80.0-94.0 [facility] RockSdfytfgDHYPRQURFL2408-15-60 10:41:00 Test Item Value Reference Range Interpretation Comments MPV (test code = MPV) 7.7 7.4-10.4 [facility] RockVguzoxxTRYBEBJTAZ5078-57-29 10:41:00 Test Item Value Reference Range Interpretation Comments Platelet (test code = Platelet) 303 133-450 [facility]2016-09-10 10:41:00 Test Item Value Reference Range Interpretation Comments A/G Ratio (test code = A/G Ratio) 0.7 0.7-1.6 [facility]2016-09-10 10:41:00 Test Item Value Reference Range Interpretation Comments Globulin (test code = Globulin) 4.6 2.7-4.2 [facility]2016-09-10 10:41:00 Test Item Value Reference Range Interpretation Comments B/C Ratio (test code = B/C Ratio) 16 6-25 [facility]2016-09-10 10:41:00 Test Item Value Reference Range Interpretation Comments AGAP (test code = AGAP) 10.4 10.0-20.0 [facility]2016-09-10 10:41:00 Test Item Value Reference Range Interpretation Comments Total Protein (test code = Total 8.0 6.4-8.4 Protein) [facility]2016-09-10 10:41:00 Test Item Value Reference Range Interpretation Comments Bili Total (test code = Bili Total) 0.3 0.2-1.3 [facility]2016-09-10 10:41:00 Test Item Value Reference Range Interpretation Comments Calcium Lvl (test code = Calcium Lvl) 8.7 8.5-10.5 [facility]2016-09-10 10:41:00 Test Item Value Reference Range Interpretation Comments CO2 (test code = CO2) 26 24-32 [facility]2016-09-10 10:41:00 Test Item Value Reference Range Interpretation Comments Chloride Lvl (test code = Chloride Lvl) 106 95-109 [facility]2016-09-10 10:41:00 Test Item Value Reference Range Interpretation Comments Sodium Lvl (test code = Sodium Lvl) 138 135-145 [facility]2016-09-10 10:41:00 Test Item Value Reference Range Interpretation Comments Potassium Lvl (test code = Potassium 4.4 3.5-5.1 Lvl) [facility]2016-09-10 10:41:00 Test Item Value Reference Range Interpretation Comments eGFR (test code = eGFR) 83 [facility]2016-09-10 10:41:00 Test Item Value Reference Range Interpretation Comments ASPARTATE TRANSAMINASE 13 See_Comment [Aut omated message] (test code = ASPARTATE The s ystem which TRANSAMINASE) generated this result transmitted ref erence range: <=37. Th e reference range was not used to interpr et this result as normal/abnormal . [facility]2016-09-10 10:41:00 Test Item Value Reference Range Interpretation Comments Creatinine Lvl (test code = Creatinine 1.07 0.50-1.40 Lvl) [facility]2016-09-10 10:41:00 Test Item Value Reference Range Interpretation Comments BUN (test code = BUN) 17 7-22 [facility]2016-09-10 10:41:00 Test Item Value Reference Range Interpretation Comments Glucose Lvl (test code = Glucose Lvl) 106 70-99 [facility]2016-09-10 10:41:00 Test Item Value Reference Range Interpretation Comments Alk Phos (test code = Alk Phos) 127 39-136 [facility]2016-09-10 10:41:00 Test Item Value Reference Range Interpretation Comments Albumin Lvl (test code = Albumin Lvl) 3.4 3.5-5.0 [facility]2016-09-10 10:41:00 Test Item Value Reference Range Interpretation Comments ALANINE AMINOTRANSFERASE 33 See_Comment [A utomated message] (test code = ALANINE The sys tem which AMINOTRANSFERASE) generated this result transmitted ref erence range: <=65. Th e reference range was not used to int erpret this result as normal/abnormal . [facility]2016-09-10 10:41:00 Test Item Value Reference Range Interpretation Comments Lipase Lvl (test code = Lipase Lvl) 164 73-393 [facility] RockQcakfgzVXSKPYDHNL4665-89-38 10:41:00 Test Item Value Reference Range Interpretation Comments Basophils # (test code 0.1 See_Comment [Aut omated message] The = Basophils #) system which generated this result tra nsmitted reference range : <=0.2. The reference r shashi was not used to int erpret this result as normal/abnormal . [facility] RockHamdyenCGCUEZBWZI2157-71-53 10:41:00 Test Item Value Reference Range Interpretation Comments Microcyte (test code = 1+ *ABN*(03/02/16 Microcyte) 5:41 AM) [facility] RockScjwdtkPJYSCNXBQT9531-69-10 10:41:00 Test Item Value Reference Range Interpretation Comments Monocytes (test code = Monocytes) 6.7 2.0-12.0 [facility] RockXptugjnRFKYVKBEUA1258-31-28 10:41:00 Test Item Value Reference Range Interpretation Comments Lymphocytes (test code = Lymphocytes) 21.9 20.0-40.0 [facility] RockSctgwtpMSNVWCPDHR0490-65-01 10:41:00 Test Item Value Reference Range Interpretation Comments Eosinophils (test code = 1.5 See_Comment [A utomated message] The Eosinophils) system which ge nerated this result tra nsmitted reference range : <=4.0. The reference r shashi was not used to int erpret this result as normal/abnormal . [facility] RockOgqkjpwCKPIJXRJAD7834-05-81 10:41:00 Test Item Value Reference Range Interpretation Comments Segs (test code = Segs) 69.1 45.0-75.0 [facility] RockKfnijnvRPTDGBMRCW4087-37-40 10:41:00 Test Item Value Reference Range Interpretation Comments Monocytes # (test code 0.8 See_Comment [Aut omated message] The = Monocytes #) system which generated this result tra nsmitted reference range : <=0.8. The reference r shashi was not used to int erpret this result as normal/abnormal . [facility] RockXkodmvrWDZEUSTWBR1792-58-14 10:41:00 Test Item Value Reference Range Interpretation Comments Lymphocytes # (test code = Lymphocytes 2.6 1.0-5.5 #) [facility] RockVshrxdvYFFPGXUQHU1803-67-70 10:41:00 Test Item Value Reference Range Interpretation Comments Eosinophils # (test code 0.2 See_Comment [A utomated message] The = Eosinophils #) system [facility] h generated this result tra nsmitted reference range : <=0.5. The reference r shashi was not used to int erpret this result as normal/abnormal . [facility] RockSuzodibPPRXEUSVQP2354-98-80 10:41:00 Test Item Value Reference Range Interpretation Comments Segs-Bands # (test code = Segs-Bands #) 8.1 1.5-8.1 [facility] RockYvlbnglNMJEWNEWAN8427-92-75 10:41:00 Test Item Value Reference Range Interpretation Comments Basophils (test code = 0.8 See_Comment [Aut omated message] The Basophils) system which ge nerated this result tra nsmitted reference range : <=1.0. The reference r shashi was not used to int erpret this result as normal/abnormal . [facility] RockIqqwpayTGVXYEGRSB9381-48-24 10:41:00 Test Item Value Reference Range Interpretation Comments WBC X 10x3 (test code = WBC X 10x3) 11.8 3.7-10.4 [facility] RockLcircmjNJEEXGMFGC3077-76-79 10:41:00 Test Item Value Reference Range Interpretation Comments Hct (test code = Hct) 37.4 42.0-54.0 [facility] RockYudxappYNKYEMQTZH8433-10-87 10:41:00 Test Item Value Reference Range Interpretation Comments RBC X 10x6 (test code = RBC X 10x6) 5.18 4.70-6.10 [facility] RockYucpizhALJTXETNSW2895-65-50 10:41:00 Test Item Value Reference Range Interpretation Comments Hgb (test code = Hgb) 12.5 14.0-18.0 [facility] RockOjsqhlbUUEFJHPJXI8671-89-09 10:41:00 Test Item Value Reference Range Interpretation Comments MCH (test code = MCH) 24.1 pg 27.0-31.0 [facility] RockVvbcvdpKNSDOAPPHM1417-43-53 10:41:00 Test Item Value Reference Range Interpretation Comments RDW (test code = RDW) 16.7 11.5-14.5 [facility] RockQwikwclJFBSTANMFD1337-81-53 10:41:00 Test Item Value Reference Range Interpretation Comments MCHC (test code = MCHC) 33.4 32.0-36.0 [facility] RockQszctljZJBEKUPNSS6013-37-41 10:41:00 Test Item Value Reference Range Interpretation Comments MCV (test code = MCV) 72.1 80.0-94.0 [facility] RockSppcngsLXKJPQRWGP2681-69-07 10:41:00 Test Item Value Reference Range Interpretation Comments MPV (test code = MPV) 7.7 7.4-10.4 [facility] RockBcqqltjYLAEVQWTLH6539-41-80 10:41:00 Test Item Value Reference Range Interpretation Comments Platelet (test code = Platelet) 303 133-450 [facility]HhkjfkrRTCYZDRTXPOB7683-38-30 14:27:00 Test Item Value Reference Range Interpretation Comments Potassium Lvl (test code = Potassium 4.4 3.5-5.1 Lvl) [facility]IkbtkzyMXTKPRAMQXTA6232-11-25 14:27:00 Test Item Value Reference Range Interpretation Comments Chloride Lvl (test code = Chloride Lvl) 104 95-109 [facility]aultXswxxwwDJBFXHIIPFKQ3782-44-34 14:27:00 Test Item Value Reference Range Interpretation Comments Sodium Lvl (test code = Sodium Lvl) 136 135-145 [facility] SaultRbxozjfUDQIPWMELGYC3737-19-38 14:27:00 Test Item Value Reference Range Interpretation Comments Glucose Lvl (test code = Glucose Lvl) 147 70-99 [facility]aultRvuaqamLSHHMRHOWYMZ5476-77-66 14:27:00 Test Item Value Reference Range Interpretation Comments Creatinine Lvl (test code = Creatinine 0.88 0.50-1.40 Lvl) [facility]aultFdpvcakPSRMDWCZUZBM5549-87-47 14:27:00 Test Item Value Reference Range Interpretation Comments BUN (test code = BUN) 10 7-22 [facility]aultXemvtycFXKBOMNLIHQZ4180-72-57 14:27:00 Test Item Value Reference Range Interpretation Comments eGFR (test code = eGFR) 103 [facility]aultXfhqpubNNEVRBHCEZVA4140-09-88 14:27:00 Test Item Value Reference Range Interpretation Comments Calcium Lvl (test code = Calcium Lvl) 8.8 8.5-10.5 [facility]aultQscymoeMDRLASWESPAW8983-83-95 14:27:00 Test Item Value Reference Range Interpretation Comments CO2 (test code = CO2) 24 24-32 [facility]aultXukbqmsGZYWKMHORDIB5239-19-21 14:27:00 Test Item Value Reference Range Interpretation Comments AGAP (test code = AGAP) 12.4 10.0-20.0 [facility] RockYwslocvZRLUZJZJYW1995-09-63 14:27:00 Test Item Value Reference Range Interpretation Comments RDW (test code = RDW) 16.3 11.5-14.5 [facility] RockLqgcpyzAKPYYMAPQZ0516-74-00 14:27:00 Test Item Value Reference Range Interpretation Comments Platelet (test code = Platelet) 273 133-450 [facility] RockAdlcpgzRQTXCLJOKI5870-45-85 14:27:00 Test Item Value Reference Range Interpretation Comments MPV (test code = MPV) 7.5 7.4-10.4 [facility] RockJodlkswLPBPMOPZIV3364-32-80 14:27:00 Test Item Value Reference Range Interpretation Comments Hgb (test code = Hgb) 12.8 14.0-18.0 [facility] RockYmaeyfhPAPUQEXRUA6668-52-69 14:27:00 Test Item Value Reference Range Interpretation Comments RBC X 10x6 (test code = RBC X 10x6) 5.31 4.70-6.10 [facility] RockWjoiybhDJEGQAAHSX9367-52-25 14:27:00 Test Item Value Reference Range Interpretation Comments WBC X 10x3 (test code = WBC X 10x3) 11.1 3.7-10.4 [facility] RockTkfgwtoWGOGQDXEZI4077-57-65 14:27:00 Test Item Value Reference Range Interpretation Comments MCV (test code = MCV) 72.6 80.0-94.0 [facility] RockOkdwedrUKPWPLCWSQ6923-17-64 14:27:00 Test Item Value Reference Range Interpretation Comments Hct (test code = Hct) 38.6 42.0-54.0 [facility] RockXylzqftXNRAUZRYMG7822-94-12 14:27:00 Test Item Value Reference Range Interpretation Comments MCH (test code = MCH) 24.1 pg 27.0-31.0 [facility] RockPsvegznIZYELFDKOX7318-04-10 14:27:00 Test Item Value Reference Range Interpretation Comments MCHC (test code = MCHC) 33.1 32.0-36.0 [facility]aultVfnbcpkLEWCKOPHGAUW5494-48-96 14:27:00 Test Item Value Reference Range Interpretation Comments Potassium Lvl (test code = Potassium 4.4 3.5-5.1 Lvl) [facility]aultQbkukuvKXSJUPPDJBHN1678-65-03 14:27:00 Test Item Value Reference Range Interpretation Comments Chloride Lvl (test code = Chloride Lvl) 104 95-109 [facility]aultFwqhpqhZXFVMYGRRNRP1986-63-30 14:27:00 Test Item Value Reference Range Interpretation Comments Sodium Lvl (test code = Sodium Lvl) 136 135-145 [facility] SaultYpagshfRYWIDXLOUFIP5229-61-29 14:27:00 Test Item Value Reference Range Interpretation Comments Glucose Lvl (test code = Glucose Lvl) 147 70-99 [facility] SaultZhtlcnwRCMPMTOMZPIO5123-56-70 14:27:00 Test Item Value Reference Range Interpretation Comments Creatinine Lvl (test code = Creatinine 0.88 0.50-1.40 Lvl) [facility] SaultUprojvaMONHABMHRCNI5770-52-73 14:27:00 Test Item Value Reference Range Interpretation Comments BUN (test code = BUN) 10 7-22 [facility] SaultAkvkmbyYGGPDTUYEKTX2470-63-81 14:27:00 Test Item Value Reference Range Interpretation Comments eGFR (test code = eGFR) 103 [facility] SaultPypvyqzKBBKNCRASGCM5066-51-44 14:27:00 Test Item Value Reference Range Interpretation Comments Calcium Lvl (test code = Calcium Lvl) 8.8 8.5-10.5 [facility] SaultBfdeytlADAYYRKNGLEY3345-77-34 14:27:00 Test Item Value Reference Range Interpretation Comments CO2 (test code = CO2) 24 24-32 [facility]aultQhjvssoKUCICNAUOQSU3941-03-49 14:27:00 Test Item Value Reference Range Interpretation Comments AGAP (test code = AGAP) 12.4 10.0-20.0 [facility] RockZljxjdbMXABTOSHCQ7013-73-29 14:27:00 Test Item Value Reference Range Interpretation Comments RDW (test code = RDW) 16.3 11.5-14.5 [facility] RockRkkknkkCAGZEHPFPU7241-41-96 14:27:00 Test Item Value Reference Range Interpretation Comments Platelet (test code = Platelet) 273 133-450 [facility] RockKmjpzdmETTZIFPBID4634-81-73 14:27:00 Test Item Value Reference Range Interpretation Comments MPV (test code = MPV) 7.5 7.4-10.4 [facility] RockUiqdqypVPAUJJSHAH1951-96-15 14:27:00 Test Item Value Reference Range Interpretation Comments Hgb (test code = Hgb) 12.8 14.0-18.0 [facility] RockDoidzpuCKTBLTXGDS6190-34-96 14:27:00 Test Item Value Reference Range Interpretation Comments RBC X 10x6 (test code = RBC X 10x6) 5.31 4.70-6.10 [facility] RockOwamblaELCNICOIXL4736-74-67 14:27:00 Test Item Value Reference Range Interpretation Comments WBC X 10x3 (test code = WBC X 10x3) 11.1 3.7-10.4 [facility] RockWpbhnfsIEEQTVOWWG6991-55-53 14:27:00 Test Item Value Reference Range Interpretation Comments MCV (test code = MCV) 72.6 80.0-94.0 [facility] RockQfyphkaWCIUHRSLNL1781-07-50 14:27:00 Test Item Value Reference Range Interpretation Comments Hct (test code = Hct) 38.6 42.0-54.0 [facility] RockXwhggkrDRWEYCILMV2224-50-90 14:27:00 Test Item Value Reference Range Interpretation Comments MCH (test code = MCH) 24.1 pg 27.0-31.0 [facility] RockRnwrwaxSZCDTBUTEW9029-62-02 14:27:00 Test Item Value Reference Range Interpretation Comments MCHC (test code = MCHC) 33.1 32.0-36.0 [facility]aultWosvbaeIMFZOFXENZTV6720-89-39 14:27:00 Test Item Value Reference Range Interpretation Comments Potassium Lvl (test code = Potassium 4.4 3.5-5.1 Lvl) [facility]aultAvgqoffRLBLBBQWQMID1742-77-69 14:27:00 Test Item Value Reference Range Interpretation Comments Chloride Lvl (test code = Chloride Lvl) 104 95-109 [facility] SaultUanuxuqDWTSNDLNJMRR3032-99-73 14:27:00 Test Item Value Reference Range Interpretation Comments Sodium Lvl (test code = Sodium Lvl) 136 135-145 [facility] SaultGtwjkdsJNAESIJWAKZT4087-05-53 14:27:00 Test Item Value Reference Range Interpretation Comments Glucose Lvl (test code = Glucose Lvl) 147 70-99 [facility] SaultMocwcbeOZLBCTAFUCOC2175-27-56 14:27:00 Test Item Value Reference Range Interpretation Comments Creatinine Lvl (test code = Creatinine 0.88 0.50-1.40 Lvl) [facility]aultGtjheoxRLTXFBJVSJWO6038-83-62 14:27:00 Test Item Value Reference Range Interpretation Comments BUN (test code = BUN) 10 7-22 [facility] SaultZaadyuqXUUJKGPZWUUQ5136-99-51 14:27:00 Test Item Value Reference Range Interpretation Comments eGFR (test code = eGFR) 103 [facility] SaultPxkjvoqAUSHPPSQFVBC6665-16-95 14:27:00 Test Item Value Reference Range Interpretation Comments Calcium Lvl (test code = Calcium Lvl) 8.8 8.5-10.5 [facility]aultGednfgxVXDHCLPDBFSH1487-78-85 14:27:00 Test Item Value Reference Range Interpretation Comments CO2 (test code = CO2) 24 24-32 [facility]aultVjfohgsVQJLRIFTTJTB3846-10-79 14:27:00 Test Item Value Reference Range Interpretation Comments AGAP (test code = AGAP) 12.4 10.0-20.0 [facility] RockMfhrldwIZJGEIYLMX0786-96-86 14:27:00 Test Item Value Reference Range Interpretation Comments RDW (test code = RDW) 16.3 11.5-14.5 [facility] RockTyhntxhAOMLGEYQMJ1146-51-38 14:27:00 Test Item Value Reference Range Interpretation Comments Platelet (test code = Platelet) 273 133-450 [facility]BnbtuvjJGWSMETWBA5689-49-10 14:27:00 Test Item Value Reference Range Interpretation Comments MPV (test code = MPV) 7.5 7.4-10.4 [facility] RockHjowuljTAFVACOXRD8693-70-36 14:27:00 Test Item Value Reference Range Interpretation Comments Hgb (test code = Hgb) 12.8 14.0-18.0 [facility] RockEoolausYIGRPBYZYQ4422-41-68 14:27:00 Test Item Value Reference Range Interpretation Comments RBC X 10x6 (test code = RBC X 10x6) 5.31 4.70-6.10 [facility] RockOkztgybRUFXVZIMAI5316-22-95 14:27:00 Test Item Value Reference Range Interpretation Comments WBC X 10x3 (test code = WBC X 10x3) 11.1 3.7-10.4 [facility] RockTzljwezXWBEJYNCFE1008-56-86 14:27:00 Test Item Value Reference Range Interpretation Comments MCV (test code = MCV) 72.6 80.0-94.0 [facility] RockBczhadoLPUPIRETYP4280-18-71 14:27:00 Test Item Value Reference Range Interpretation Comments Hct (test code = Hct) 38.6 42.0-54.0 [facility] RockAebuubrPOGZVTYOGK5924-74-86 14:27:00 Test Item Value Reference Range Interpretation Comments MCH (test code = MCH) 24.1 pg 27.0-31.0 [facility] RockIyjlkddCTYARCBXZM3913-42-58 14:27:00 Test Item Value Reference Range Interpretation Comments MCHC (test code = MCHC) 33.1 32.0-36.0 [facility] AreaCARDIAC GGXKAGU3570-30-90 10:20:45 Test Item Value Reference Range Interpretation Comments Troponin-I (test code no gt See_Comment [Auto mated message] The = Troponin-I) system which g enerated this result transmit vale reference range : <=0.40. The reference r shashi was not used to interpr et this result as olivia l/abnormal. [facility] RockYmeuibyXOTVSRQPXL8688-89-31 10:20:45 Test Item Value Reference Range Interpretation Comments Monocytes (test code = Monocytes) 7.9 2.0-12.0 [facility] RockIknqjuiKCDSHSCZYH1353-26-88 10:20:45 Test Item Value Reference Range Interpretation Comments Lymphocytes (test code = Lymphocytes) 20.8 20.0-40.0 [facility] RockSjdiuohOGZCVQQAHH7417-66-12 10:20:45 Test Item Value Reference Range Interpretation Comments Segs (test code = Segs) 69.1 45.0-75.0 [facility] RockWvmjlagVQVQTYYBBU9013-93-07 10:20:45 Test Item Value Reference Range Interpretation Comments Lymphocytes # (test code = Lymphocytes 2.2 1.0-5.5 #) [facility] RockByofxhbDFDWRPQPRT9107-63-27 10:20:45 Test Item Value Reference Range Interpretation Comments Monocytes # (test code 0.8 See_Comment [Aut omated message] The = Monocytes #) system which generated this result tra nsmitted reference range : <=0.8. The reference r shashi was not used to int erpret this result as normal/abnormal . [facility] RockAhywuhqENXWHNRZEV5199-17-57 10:20:45 Test Item Value Reference Range Interpretation Comments Eosinophils (test code = 1.6 See_Comment [A utomated message] The Eosinophils) system which ge nerated this result tra nsmitted reference range : <=4.0. The reference r shashi was not used to int erpret this result as normal/abnormal . [facility] RockZztwheoCYWOISDQXU0162-34-43 10:20:45 Test Item Value Reference Range Interpretation Comments Segs-Bands # (test code = Segs-Bands #) 7.5 1.5-8.1 [facility] RockHxzqxnbTUXLNEMTDC4331-25-15 10:20:45 Test Item Value Reference Range Interpretation Comments Basophils (test code = 0.6 See_Comment [Aut omated message] The Basophils) system which ge nerated this result tra nsmitted reference range : <=1.0. The reference r shashi was not used to int erpret this result as normal/abnormal . [facility] RockTohcazgJADNLSXXBY1046-26-51 10:20:45 Test Item Value Reference Range Interpretation Comments Microcyte (test code = 1+ *ABN*(02/18/16 Microcyte) 5:20 AM) [facility] RockXdbejapRVDUELHHIR8393-67-72 10:20:45 Test Item Value Reference Range Interpretation Comments Basophils # (test code 0.1 See_Comment [Aut omated message] The = Basophils #) system which generated this result tra nsmitted reference range : <=0.2. The reference r shashi was not used to int erpret this result as normal/abnormal . [facility] RockShtekngLZCFUKDSFL9828-52-77 10:20:45 Test Item Value Reference Range Interpretation Comments Eosinophils # (test code 0.2 See_Comment [A utomated message] The = Eosinophils #) system whic h generated this result tra nsmitted reference range : <=0.5. The reference r shashi was not used to int erpret this result as normal/abnormal . [facility] RockEkvolotRFJMYQZIYF5539-13-44 10:20:45 Test Item Value Reference Range Interpretation Comments RBC X 10x6 (test code = RBC X 10x6) 4.91 4.70-6.10 [facility] RockJlizvudBYACJDGTTI6814-00-61 10:20:45 Test Item Value Reference Range Interpretation Comments WBC X 10x3 (test code = WBC X 10x3) 10.8 3.7-10.4 [facility] RockHdfslwlIOQHEQMXVI4695-14-54 10:20:45 Test Item Value Reference Range Interpretation Comments MCH (test code = MCH) 24.1 pg 27.0-31.0 [facility] RockDfrrmkdTCDLZXERZG7058-94-42 10:20:45 Test Item Value Reference Range Interpretation Comments MCV (test code = MCV) 73.1 80.0-94.0 [facility] RockSxocwwwMYGXRSLNCL3008-24-75 10:20:45 Test Item Value Reference Range Interpretation Comments Hct (test code = Hct) 35.9 42.0-54.0 [facility] RockCbaybmlHFYRJQOIZU9381-28-30 10:20:45 Test Item Value Reference Range Interpretation Comments Hgb (test code = Hgb) 11.8 14.0-18.0 [facility] RockReuhtddESYAYYECFU1334-13-85 10:20:45 Test Item Value Reference Range Interpretation Comments MPV (test code = MPV) 7.4 7.4-10.4 [facility] RockHnzdnpzQWUDZHVQHU8869-80-29 10:20:45 Test Item Value Reference Range Interpretation Comments RDW (test code = RDW) 16.3 11.5-14.5 [facility] RockAyzwckkMMYNZVJPEV7903-70-09 10:20:45 Test Item Value Reference Range Interpretation Comments MCHC (test code = MCHC) 33.0 32.0-36.0 [facility] RockOaqhfpfIOTDUGKQRO3334-65-02 10:20:45 Test Item Value Reference Range Interpretation Comments Platelet (test code = Platelet) 270 133-450 [facility]CARDIH[facility] HOSPITALTOWVKOK3751-73-29 10:20:45 Test Item Value Reference Range Interpretation Comments Troponin-I (test code no gt See_Comment [Auto mated message] The = Troponin-I) system which g enerated this result transmit vale reference range : <=0.40. The reference r shashi was not used to interpr et this result as olivia l/abnormal. [facility] RockQockdrcNIEBYDWQDT5382-24-15 10:20:45 Test Item Value Reference Range Interpretation Comments Monocytes (test code = Monocytes) 7.9 2.0-12.0 [facility] RockCtxvkflQVLUOSWHQW9725-14-73 10:20:45 Test Item Value Reference Range Interpretation Comments Lymphocytes (test code = Lymphocytes) 20.8 20.0-40.0 [facility] RockIzmgszjFXZUJJEZCM1778-60-42 10:20:45 Test Item Value Reference Range Interpretation Comments Segs (test code = Segs) 69.1 45.0-75.0 [facility] RockRbbjnjoSXYQPTMMDP7939-22-30 10:20:45 Test Item Value Reference Range Interpretation Comments Lymphocytes # (test code = Lymphocytes 2.2 1.0-5.5 #) [facility] RockOxlzvhsPJIITCWSDA3240-71-44 10:20:45 Test Item Value Reference Range Interpretation Comments Monocytes # (test code 0.8 See_Comment [Aut omated message] The = Monocytes #) system which generated this result tra nsmitted reference range : <=0.8. The reference r shashi was not used to int erpret this result as normal/abnormal . [facility] RockSjnjkjqNZUAQKMYHH9968-76-93 10:20:45 Test Item Value Reference Range Interpretation Comments Eosinophils (test code = 1.6 See_Comment [A utomated message] The Eosinophils) system which ge nerated this result tra nsmitted reference range : <=4.0. The reference r shashi was not used to int erpret this result as normal/abnormal . [facility] RockZyazjyfZKZJZUCYTL1657-31-44 10:20:45 Test Item Value Reference Range Interpretation Comments Segs-Bands # (test code = Segs-Bands #) 7.5 1.5-8.1 [facility] RockXfnwfziWHHGBMOXLO8947-57-53 10:20:45 Test Item Value Reference Range Interpretation Comments Basophils (test code = 0.6 See_Comment [Aut omated message] The Basophils) system which ge nerated this result tra nsmitted reference range : <=1.0. The reference r shashi was not used to int erpret this result as normal/abnormal . [facility] RockInnmteuASSZAQXTSE1379-38-35 10:20:45 Test Item Value Reference Range Interpretation Comments Microcyte (test code = 1+ *ABN*(02/18/16 Microcyte) 5:20 AM) [facility] RockYtcaqdxIUEJWZDRFV6913-70-93 10:20:45 Test Item Value Reference Range Interpretation Comments Basophils # (test code 0.1 See_Comment [Aut omated message] The = Basophils #) system which generated this result tra nsmitted reference range : <=0.2. The reference r shashi was not used to int erpret this result as normal/abnormal . [facility] RockAmmjkmyVCTPNLDDEB5193-89-93 10:20:45 Test Item Value Reference Range Interpretation Comments Eosinophils # (test code 0.2 See_Comment [A utomated message] The = Eosinophils #) system whic h generated this result tra nsmitted reference range : <=0.5. The reference r shashi was not used to int erpret this result as normal/abnormal . [facility] RockClknzowMOWKBRRGWM2520-75-05 10:20:45 Test Item Value Reference Range Interpretation Comments RBC X 10x6 (test code = RBC X 10x6) 4.91 4.70-6.10 [facility] RockCpieifqGUVLROYEWS9135-54-45 10:20:45 Test Item Value Reference Range Interpretation Comments WBC X 10x3 (test code = WBC X 10x3) 10.8 3.7-10.4 [facility] RockAltqwroXTPVNBTUPG5506-48-60 10:20:45 Test Item Value Reference Range Interpretation Comments MCH (test code = MCH) 24.1 pg 27.0-31.0 [facility] RockInclegpPOVNHVASYD1782-71-58 10:20:45 Test Item Value Reference Range Interpretation Comments MCV (test code = MCV) 73.1 80.0-94.0 [facility] RockEsimknmWLLTKYVFOA6821-25-75 10:20:45 Test Item Value Reference Range Interpretation Comments Hct (test code = Hct) 35.9 42.0-54.0 [facility] RockGpzfvlvXTERXHIZJQ1738-44-57 10:20:45 Test Item Value Reference Range Interpretation Comments Hgb (test code = Hgb) 11.8 14.0-18.0 [facility] RockRqlbubgMYEEYRZUVY3010-98-83 10:20:45 Test Item Value Reference Range Interpretation Comments MPV (test code = MPV) 7.4 7.4-10.4 [facility] RockVaceylaADJJEBBWBW7820-13-84 10:20:45 Test Item Value Reference Range Interpretation Comments RDW (test code = RDW) 16.3 11.5-14.5 [facility] RockZwplvtdEJRSYLRGPL4378-03-27 10:20:45 Test Item Value Reference Range Interpretation Comments MCHC (test code = MCHC) 33.0 32.0-36.0 [facility] RockSnubmjhESOSUWYMME4213-70-56 10:20:45 Test Item Value Reference Range Interpretation Comments Platelet (test code = Platelet) 270 133-450 [facility] AreaCARDIAC [id number] 10:20:45 Test Item Value Reference Range Interpretation Comments Troponin-I (test code no gt See_Comment [Auto mated message] The = Troponin-I) system which g enerated this result transmit vale reference range : <=0.40. The reference r shashi was not used to interpr et this result as olivia l/abnormal. [facility] RockUsnaaehMXMHXVCZVU6394-26-65 10:20:45 Test Item Value Reference Range Interpretation Comments Monocytes (test code = Monocytes) 7.9 2.0-12.0 [facility] RockFtkfyqmTKZPUXYGSI8895-31-14 10:20:45 Test Item Value Reference Range Interpretation Comments Lymphocytes (test code = Lymphocytes) 20.8 20.0-40.0 [facility] RockQuhjepmNSDAPQRDJD7294-56-20 10:20:45 Test Item Value Reference Range Interpretation Comments Segs (test code = Segs) 69.1 45.0-75.0 [facility] RockJazettzKOHHLWZZWG7449-99-53 10:20:45 Test Item Value Reference Range Interpretation Comments Lymphocytes # (test code = Lymphocytes 2.2 1.0-5.5 #) [facility] RockAakbtdwUFHRMJHPHM6201-37-41 10:20:45 Test Item Value Reference Range Interpretation Comments Monocytes # (test code 0.8 See_Comment [Aut omated message] The = Monocytes #) system which generated this result tra nsmitted reference range : <=0.8. The reference r shashi was not used to int erpret this result as normal/abnormal . [facility] RockJtbvhnaWCSQCQBLKH4928-97-97 10:20:45 Test Item Value Reference Range Interpretation Comments Eosinophils (test code = 1.6 See_Comment [A utomated message] The Eosinophils) system which ge nerated this result tra nsmitted reference range : <=4.0. The reference r shashi was not used to int erpret this result as normal/abnormal . [facility] RockCazdttkVADABODSFH2379-62-35 10:20:45 Test Item Value Reference Range Interpretation Comments Segs-Bands # (test code = Segs-Bands #) 7.5 1.5-8.1 [facility] RockBtywpspDRUJLAZOFA6388-43-38 10:20:45 Test Item Value Reference Range Interpretation Comments Basophils (test code = 0.6 See_Comment [Aut omated message] The Basophils) system which ge nerated this result tra nsmitted reference range : <=1.0. The reference r shashi was not used to int erpret this result as normal/abnormal . [facility] RockUvpkdpoFAMBHQJZJU7509-94-03 10:20:45 Test Item Value Reference Range Interpretation Comments Microcyte (test code = 1+ *ABN*(02/18/16 Microcyte) 5:20 AM) [facility] RockAilaoqqPOMIMGTPVG3612-72-63 10:20:45 Test Item Value Reference Range Interpretation Comments Basophils # (test code 0.1 See_Comment [Aut omated message] The = Basophils #) system which generated this result tra nsmitted reference range : <=0.2. The reference r shashi was not used to int erpret this result as normal/abnormal . [facility] RockJvqbctfKTFXIIWRKA7801-75-33 10:20:45 Test Item Value Reference Range Interpretation Comments Eosinophils # (test code 0.2 See_Comment [A utomated message] The = Eosinophils #) system whic h generated this result tra nsmitted reference range : <=0.5. The reference r shashi was not used to int erpret this result as normal/abnormal . [facility] RockVtehsacTJHFIENJMY4401-73-66 10:20:45 Test Item Value Reference Range Interpretation Comments RBC X 10x6 (test code = RBC X 10x6) 4.91 4.70-6.10 [facility] RockYpexcfrOGPZOZEDHK7193-10-02 10:20:45 Test Item Value Reference Range Interpretation Comments WBC X 10x3 (test code = WBC X 10x3) 10.8 3.7-10.4 [facility]VywgzokJQMPGDEOZM0574-96-01 10:20:45 Test Item Value Reference Range Interpretation Comments MCH (test code = MCH) 24.1 pg 27.0-31.0 [facility] HospitalOwxjtbaVROJSRNWDV0732-00-52 10:20:45 Test Item Value Reference Range Interpretation Comments MCV (test code = MCV) 73.1 80.0-94.0 [facility] HospitalBnqffjqEQDDTGRTIR4240-64-86 10:20:45 Test Item Value Reference Range Interpretation Comments Hct (test code = Hct) 35.9 42.0-54.0 [facility] HospitalBllhyefCHCJKJRNYN7637-56-55 10:20:45 Test Item Value Reference Range Interpretation Comments Hgb (test code = Hgb) 11.8 14.0-18.0 [facility] HospitalSvmbvmlYGCIOAXHJM7646-73-49 10:20:45 Test Item Value Reference Range Interpretation Comments MPV (test code = MPV) 7.4 7.4-10.4 [facility] HospitalJxpaxojUWSPOTFJCK0765-85-51 10:20:45 Test Item Value Reference Range Interpretation Comments RDW (test code = RDW) 16.3 11.5-14.5 [facility] HospitalVhvgucwRTAQHQKJFL3422-52-96 10:20:45 Test Item Value Reference Range Interpretation Comments MCHC (test code = MCHC) 33.0 32.0-36.0 [facility] HospitalCczxxcvTSXWDOYUES2514-10-55 10:20:45 Test Item Value Reference Range Interpretation Comments Platelet (test code = Platelet) 270 133-450 [facility] AreaCARDIAC TTWTUST4011-39-29 21:41:44 Test Item Value Reference Range Interpretation Comments Troponin-I (test code no gt See_Comment [Auto mated message] The = Troponin-I) system which g enerated this result transmit vale reference range : <=0.40. The reference r shashi was not used to interpr et this result as olivia l/abnormal. [facility] AreaCHEM [id number] 21:41:44 Test Item Value Reference Range Interpretation Comments Procalcitonin Lvl (test no gt See_Comment [Au tomated message] code = Procalcitonin Lvl) Th e system which generated this result transmitted ref erence range: <=0.10. The reference range was not used to interpr et this result as normal/abnormal . [facility] bulletn.2016-08-27 21:41:44 Test Item Value Reference Range Interpretation Comments Troponin-I (test code no gt See_Comment [Auto mated message] The = Troponin-I) system which g enerated this result transmit vale reference range : <=0.40. The reference r shashi was not used to interpr et this result as olivia l/abnormal. [facility] [employer] system2016-08-27 21:41:44 Test Item Value Reference Range Interpretation Comments Procalcitonin Lvl (test no gt See_Comment [Au tomated message] code = Procalcitonin Lvl) Th e system which generated this result transmitted ref erence range: <=0.10. The reference range was not used to interpr et this result as normal/abnormal . [facility] 21:41:44 Test Item Value Reference Range Interpretation Comments Troponin-I (test code no gt See_Comment [Auto mated message] The = Troponin-I) system which g enerated this result transmit vale reference range : <=0.40. The reference r shashi was not used to interpr et this result as olivia l/abnormal. [facility] [employer] [id number] 21:41:44 Test Item Value Reference Range Interpretation Comments Procalcitonin Lvl (test no gt See_Comment [Au tomated message] code = Procalcitonin Lvl) Th e system which generated this result transmitted ref erence range: <=0.10. The reference range was not used to interpr et this result as normal/abnormal . [facility] bulletn.2016-08-27 15:34:00 Test Item Value Reference Range Interpretation Comments Troponin-I (test code no gt See_Comment [Auto mated message] The = Troponin-I) system which g enerated this result transmit vale reference range : <=0.40. The reference r shashi was not used to interpr et this result as olivia l/abnormal. [facility] bulletn.2016-08-27 15:34:00 Test Item Value Reference Range Interpretation Comments Troponin-I (test code no gt See_Comment [Auto mated message] The = Troponin-I) system which g enerated this result transmit vale reference range : <=0.40. The reference r shashi was not used to interpr et this result as olivia l/abnormal. [facility] [id number] 15:34:00 Test Item Value Reference Range Interpretation Comments Troponin-I (test code no gt See_Comment [Auto mated message] The = Troponin-I) system which g enerated this result transmit vale reference range : <=0.40. The reference r shashi was not used to interpr et this result as olivia l/abnormal. [facility] [id number] 11:27:00 Test Item Value Reference Range Interpretation Comments UA Bacteria (test code = None Seen (02/17/16 UA Bacteria) 6:27 AM) [facility] [id number] 11:27:00 Test Item Value Reference Range Interpretation Comments UA RBC (test None Seen See_Comment [Automated mes johnna] code = UA RBC) (02/17/16 6:27 The system w hich AM) generated this result transmitted ref erence range: <=2. The reference range was not used to int erpret this result as normal/abnormal . [facility] [id number] 11:27:00 Test Item Value Reference Range Interpretation Comments UA Mucus (test code = UA Mucus) Few /LPF [facility] [id number] 11:27:00 Test Item Value Reference Range Interpretation Comments UA Sq Epi (test code = UA Sq Epi) Rare /LPF [facility] [id number] 11:27:00 Test Item Value Reference Range Interpretation Comments UA WBC (test code = UA WBC) 0-2 /HPF [facility] [id number] 11:27:00 Test Item Value Reference Range Interpretation Comments UA Leuk Est (test Negative (02/17/16 6:27 code = UA Leuk Est) AM) [facility] [id number] 11:27:00 Test Item Value Reference Range Interpretation Comments UA Urobilinogen (test code = UA 0.2 0.1-1.0 Urobilinogen) [facility] [id number] 11:27:00 Test Item Value Reference Range Interpretation Comments UA Nitrite (test code Negative (02/17/16 6:27 = UA Nitrite) AM) [facility] AND [id number] 11:27:00 Test Item Value Reference Range Interpretation Comments UA Spec Grav (test code = UA Spec 1.025 1 Grav) [facility] AND [id number] 11:27:00 Test Item Value Reference Range Interpretation Comments UA Turbidity (test code = Clear (02/17/16 6:27 UA Turbidity) AM) [facility] AND [id number] 11:27:00 Test Item Value Reference Range Interpretation Comments UA Color (test code = Yellow *NA*(02/17/16 UA Color) 6:27 AM) [facility] AND [id number] 11:27:00 Test Item Value Reference Range Interpretation Comments UA Bili (test code = Negative *NA*(02/17/16 UA Bili) 6:27 AM) [facility] AND [id number] 11:27:00 Test Item Value Reference Range Interpretation Comments UA Blood (test code = Negative (02/17/16 6:27 UA Blood) AM) [facility] AND [id number] 11:27:00 Test Item Value Reference Range Interpretation Comments UA Ketones (test code = UA Negative mg/dL Ketones) [facility] AND [id number] 11:27:00 Test Item Value Reference Range Interpretation Comments UA Glucose (test code = UA Negative mg/dL Glucose) [facility] AND [id number] 11:27:00 Test Item Value Reference Range Interpretation Comments UA pH (test code = UA pH) 6.0 1 5.0-8.0 [facility] AND [id number] 11:27:00 Test Item Value Reference Range Interpretation Comments UA Protein (test code = UA Negative mg/dL Protein) [facility] AND [id number] 11:27:00 Test Item Value Reference Range Interpretation Comments UA Bacteria (test code = None Seen (02/17/16 UA Bacteria) 6:27 AM) [facility] AND [id number] 11:27:00 Test Item Value Reference Range Interpretation Comments UA RBC (test None Seen See_Comment [Automated mes johnna] code = UA RBC) (02/17/16 6:27 The system w hich AM) generated this result transmitted ref erence range: <=2. The reference range was not used to int erpret this result as normal/abnormal . [facility] AND [id number] 11:27:00 Test Item Value Reference Range Interpretation Comments UA Mucus (test code = UA Mucus) Few /LPF [facility] AND [id number] 11:27:00 Test Item Value Reference Range Interpretation Comments UA Sq Epi (test code = UA Sq Epi) Rare /LPF [facility] [id number] 11:27:00 Test Item Value Reference Range Interpretation Comments UA WBC (test code = UA WBC) 0-2 /HPF [facility] AND [id number] 11:27:00 Test Item Value Reference Range Interpretation Comments UA Leuk Est (test Negative (02/17/16 6:27 code = UA Leuk Est) AM) [facility] AND [id number] 11:27:00 Test Item Value Reference Range Interpretation Comments UA Urobilinogen (test code = UA 0.2 0.1-1.0 Urobilinogen) [facility] AND [id number] 11:27:00 Test Item Value Reference Range Interpretation Comments UA Nitrite (test code Negative (02/17/16 6:27 = UA Nitrite) AM) [facility] AND [id number] 11:27:00 Test Item Value Reference Range Interpretation Comments UA Spec Grav (test code = UA Spec 1.025 1 Grav) [facility] AND [id number] 11:27:00 Test Item Value Reference Range Interpretation Comments UA Turbidity (test code = Clear (02/17/16 6:27 UA Turbidity) AM) [facility] AND [id number] 11:27:00 Test Item Value Reference Range Interpretation Comments UA Color (test code = Yellow *NA*(02/17/16 UA Color) 6:27 AM) [facility] AND [id number] 11:27:00 Test Item Value Reference Range Interpretation Comments UA Bili (test code = Negative *NA*(02/17/16 UA Bili) 6:27 AM) [facility] AND [id number] 11:27:00 Test Item Value Reference Range Interpretation Comments UA Blood (test code = Negative (02/17/16 6:27 UA Blood) AM) [facility] AND [id number] 11:27:00 Test Item Value Reference Range Interpretation Comments UA Ketones (test code = UA Negative mg/dL Ketones) [facility] AND [id number] 11:27:00 Test Item Value Reference Range Interpretation Comments UA Glucose (test code = UA Negative mg/dL Glucose) [facility] AND [id number] 11:27:00 Test Item Value Reference Range Interpretation Comments UA pH (test code = UA pH) 6.0 1 5.0-8.0 [facility] AND [id number] 11:27:00 Test Item Value Reference Range Interpretation Comments UA Protein (test code = UA Negative mg/dL Protein) [facility] AND [id number] 11:27:00 Test Item Value Reference Range Interpretation Comments UA Bacteria (test code = None Seen (02/17/16 UA Bacteria) 6:27 AM) [facility] AND [id number] 11:27:00 Test Item Value Reference Range Interpretation Comments UA RBC (test None Seen See_Comment [Automated mes johnna] code = UA RBC) (02/17/16 6:[address] [facility] AM) generated this result transmitted ref erence range: <=2. The reference range was not used to int erpret this result as normal/abnormal . [facility] AND [id number] 11:27:00 Test Item Value Reference Range Interpretation Comments UA Mucus (test code = UA Mucus) Few /LPF [facility] AND [id number] 11:27:00 Test Item Value Reference Range Interpretation Comments UA Sq Epi (test code = UA Sq Epi) Rare /LPF [facility] AND [id number] 11:27:00 Test Item Value Reference Range Interpretation Comments UA WBC (test code = UA WBC) 0-2 /HPF [facility] AND [id number] 11:27:00 Test Item Value Reference Range Interpretation Comments UA Leuk Est (test Negative (02/17/16 6:27 code = UA Leuk Est) AM) [facility] [id number] 11:27:00 Test Item Value Reference Range Interpretation Comments UA Urobilinogen (test code = UA 0.2 0.1-1.0 Urobilinogen) [facility] [id number] 11:27:00 Test Item Value Reference Range Interpretation Comments UA Nitrite (test code Negative (02/17/16 6:27 = UA Nitrite) AM) [facility] [id number] 11:27:00 Test Item Value Reference Range Interpretation Comments UA Spec Grav (test code = UA Spec 1.025 1 Grav) [facility] [id number] 11:27:00 Test Item Value Reference Range Interpretation Comments UA Turbidity (test code = Clear (02/17/16 6:27 UA Turbidity) AM) [facility] [id number] 11:27:00 Test Item Value Reference Range Interpretation Comments UA Color (test code = Yellow *NA*(02/17/16 UA Color) 6:27 AM) [facility] [id number] 11:27:00 Test Item Value Reference Range Interpretation Comments UA Bili (test code = Negative *NA*(02/17/16 UA Bili) 6:27 AM) [facility] [id number] 11:27:00 Test Item Value Reference Range Interpretation Comments UA Blood (test code = Negative (02/17/16 6:27 UA Blood) AM) [facility] AND [id number] 11:27:00 Test Item Value Reference Range Interpretation Comments UA Ketones (test code = UA Negative mg/dL Ketones) [facility] [id number] 11:27:00 Test Item Value Reference Range Interpretation Comments UA Glucose (test code = UA Negative mg/dL Glucose) [facility] [id number] 11:27:00 Test Item Value Reference Range Interpretation Comments UA pH (test code = UA pH) 6.0 1 5.0-8.0 [facility] [id number] 11:27:00 Test Item Value Reference Range Interpretation Comments UA Protein (test code = UA Negative mg/dL Protein) [facility] [id number] 10:50:00 Test Item Value Reference Range Interpretation Comments CK-MB INDEX (test 1.6 See_Comment [Automate d message] The code = CK-MB INDEX) system w [facility] generated this result transmit vale reference range : <=2.5. The reference range was not used to interpr et this result as olivia l/abnormal. [facility] HospitalTastyNow.comCARTouchtown Inc.AC [id number] 10:50:00 Test Item Value Reference Range Interpretation Comments CK MB (test code = CK MB) 0.9 0.5-3.6 [facility] AreaFlow [facility]aders [id number] 10:50:00 Test Item Value Reference Range Interpretation Comments Total CK (test code = Total CK) 58 12-191 [facility] [employer] [id number] 10:50:00 Test Item Value Reference Range Interpretation Comments eGFR (test code = eGFR) 93 [facility] HospitalBaike.com [id number] 10:50:00 Test Item Value Reference Range Interpretation Comments ALANINE AMINOTRANSFERASE 33 See_Comment [A utomated message] (test code = ALANINE The sys tem which AMINOTRANSFERASE) generated this result transmitted ref erence range: <=65. Th e reference range was not used to int erpret this result as normal/abnormal . [facility] [employer] [id number] 10:50:00 Test Item Value Reference Range Interpretation Comments CO2 (test code = CO2) 23 24-32 [facility] [id number] 10:50:00 Test Item Value Reference Range Interpretation Comments Calcium Lvl (test code = Calcium Lvl) 8.8 8.5-10.5 [facility] [id number] 10:50:00 Test Item Value Reference Range Interpretation Comments Potassium Lvl (test code = Potassium 4.0 3.5-5.1 Lvl) [facility] [id number] 10:50:00 Test Item Value Reference Range Interpretation Comments Chloride Lvl (test code = Chloride Lvl) 105 95-109 [facility] [id number] 10:50:00 Test Item Value Reference Range Interpretation Comments Creatinine Lvl (test code = Creatinine 0.97 0.50-1.40 Lvl) [facility] [id number] 10:50:00 Test Item Value Reference Range Interpretation Comments Glucose Lvl (test code = Glucose Lvl) 103 70-99 [facility]2016-08-27 10:50:00 Test Item Value Reference Range Interpretation Comments BUN (test code = BUN) 11 7-22 [facility]2016-08-27 10:50:00 Test Item Value Reference Range Interpretation Comments Albumin Lvl (test code = Albumin Lvl) 3.4 3.5-5.0 [facility]2016-08-27 10:50:00 Test Item Value Reference Range Interpretation Comments Alk Phos (test code = Alk Phos) 128 39-136 [facility]2016-08-27 10:50:00 Test Item Value Reference Range Interpretation Comments Bili Total (test code = Bili Total) 0.5 0.2-1.3 [facility]2016-08-27 10:50:00 Test Item Value Reference Range Interpretation Comments Sodium Lvl (test code = Sodium Lvl) 139 135-145 [facility]2016-08-27 10:50:00 Test Item Value Reference Range Interpretation Comments AGAP (test code = AGAP) 15.0 10.0-20.0 [facility]2016-08-27 10:50:00 Test Item Value Reference Range Interpretation Comments B/C Ratio (test code = B/C Ratio) 11 6-25 [facility]2016-08-27 10:50:00 Test Item Value Reference Range Interpretation Comments Total Protein (test code = Total 8.0 6.4-8.4 Protein) [facility]2016-08-27 10:50:00 Test Item Value Reference Range Interpretation Comments ASPARTATE TRANSAMINASE 16 See_Comment [Aut omated message] (test code = ASPARTATE The s ystem which TRANSAMINASE) generated this result transmitted ref erence range: <=37. Th e reference range was not used to interpr et this result as normal/abnormal . [facility]2016-08-27 10:50:00 Test Item Value Reference Range Interpretation Comments Globulin (test code = Globulin) 4.6 2.7-4.2 [facility]2016-08-27 10:50:00 Test Item Value Reference Range Interpretation Comments A/G Ratio (test code = A/G Ratio) 0.7 0.7-1.6 [facility] RockCiqtnjaPTCMPEHBYG6267-79-22 10:50:00 Test Item Value Reference Range Interpretation Comments Microcyte (test code = 1+ *ABN*(02/17/16 Microcyte) 5:50 AM) [facility] RockXgqkbyiVNXWDXHXUA1739-67-65 10:50:00 Test Item Value Reference Range Interpretation Comments Basophils # (test code 0.1 See_Comment [Aut omated message] The = Basophils #) system which generated this result tra nsmitted reference range : <=0.2. The reference r shashi was not used to int erpret this result as normal/abnormal . [facility] RockChzbahhOGNBZTALMC2486-66-64 10:50:00 Test Item Value Reference Range Interpretation Comments Basophils (test code = 0.5 See_Comment [Aut omated message] The Basophils) system which ge nerated this result tra nsmitted reference range : <=1.0. The reference r shashi was not used to int erpret this result as normal/abnormal . [facility] RockKrvaceoZTQMEUORNH8473-34-64 10:50:00 Test Item Value Reference Range Interpretation Comments Lymphocytes # (test code = Lymphocytes 2.4 1.0-5.5 #) [facility] RockPlodunhQEXJSWQLUO2683-25-79 10:50:00 Test Item Value Reference Range Interpretation Comments Monocytes # (test code 0.8 See_Comment [Aut omated message] The = Monocytes #) system which generated this result tra nsmitted reference range : <=0.8. The reference r sahshi was not used to int erpret this result as normal/abnormal . [facility] RockXvpmmbaSRTQIWKMIA2461-74-46 10:50:00 Test Item Value Reference Range Interpretation Comments Eosinophils # (test code 0.1 See_Comment [A utomated message] The = Eosinophils #) system whic h generated this result tra nsmitted reference range : <=0.5. The reference r shashi was not used to int erpret this result as normal/abnormal . [facility] RockOrgwhbdUIJXODIDOW1078-12-94 10:50:00 Test Item Value Reference Range Interpretation Comments Segs-Bands # (test code = Segs-Bands #) 8.7 1.5-8.1 [facility] RockPneknglLAFTMGREBL7968-46-91 10:50:00 Test Item Value Reference Range Interpretation Comments Eosinophils (test code = 1.2 See_Comment [A utomated message] The Eosinophils) system which ge nerated this result tra nsmitted reference range : <=4.0. The reference r shashi was not used to int erpret this result as normal/abnormal . [facility] RockLalctcgGYRACSHVGE0755-84-66 10:50:00 Test Item Value Reference Range Interpretation Comments Segs (test code = Segs) 72.1 45.0-75.0 [facility] RockCmkpoksJAQTXNJNFM7919-13-13 10:50:00 Test Item Value Reference Range Interpretation Comments Lymphocytes (test code = Lymphocytes) 19.8 20.0-40.0 [facility] RockTtsuorzRPHCMUVWOR9661-80-49 10:50:00 Test Item Value Reference Range Interpretation Comments Monocytes (test code = Monocytes) 6.4 2.0-12.0 [facility] RockUsdxnhgSSBSRTPXTU1244-64-08 10:50:00 Test Item Value Reference Range Interpretation Comments Platelet (test code = Platelet) 327 133-450 [facility] RockIslalgbSVVGWVRTVY9804-03-02 10:50:00 Test Item Value Reference Range Interpretation Comments MCH (test code = MCH) 24.1 pg 27.0-31.0 [facility] RockXozlgseZDUJVIXVYT4920-62-04 10:50:00 Test Item Value Reference Range Interpretation Comments MCHC (test code = MCHC) 33.3 32.0-36.0 [facility] RockSyhlwpsPYKWYSFIAX7601-01-78 10:50:00 Test Item Value Reference Range Interpretation Comments MPV (test code = MPV) 7.6 7.4-10.4 [facility] RockFaixwtaIIQYDTIHGX3847-20-74 10:50:00 Test Item Value Reference Range Interpretation Comments RDW (test code = RDW) 16.3 11.5-14.5 [facility] RockVfxxfmmLAJUZTUTJS2342-25-44 10:50:00 Test Item Value Reference Range Interpretation Comments Hgb (test code = Hgb) 13.1 14.0-18.0 [facility] RockMhiolpdBHHVBYDIZB4461-17-67 10:50:00 Test Item Value Reference Range Interpretation Comments Hct (test code = Hct) 39.5 42.0-54.0 [facility] RockKirbzlqJGLDAZYJQW7521-53-99 10:50:00 Test Item Value Reference Range Interpretation Comments WBC X 10x3 (test code = WBC X 10x3) 12.0 3.7-10.4 [facility] RockTvbofmjXRJFGEIHGL2714-89-39 10:50:00 Test Item Value Reference Range Interpretation Comments RBC X 10x6 (test code = RBC X 10x6) 5.45 4.70-6.10 [facility] AreaOqxycjqKYFARHOBAU5747-66-37 10:50:00 Test Item Value Reference Range Interpretation Comments MCV (test code = MCV) 72.6 80.0-94.0 [facility] HospitalannCARDIAC [id number] 10:50:00 Test Item Value Reference Range Interpretation Comments CK-MB INDEX (test 1.6 See_Comment [Automate d message] The code = CK-MB INDEX) system w [facility] generated this result transmit vale reference range : <=2.5. The reference range was not used to interpr et this result as olivia l/abnormal. [facility] HospitalTastyNow.comCARTouchtown Inc.AC PCFSULP7189-28-46 10:50:00 Test Item Value Reference Range Interpretation Comments CK MB (test code = CK MB) 0.9 0.5-3.6 [facility] HospitalannCARAC [id number] 10:50:00 Test Item Value Reference Range Interpretation Comments Total CK (test code = Total CK) 58 12-191 [facility] HospitalBaike.com [id number] 10:50:00 Test Item Value Reference Range Interpretation Comments eGFR (test code = eGFR) 93 [facility] [employer] [id number] 10:50:00 Test Item Value Reference Range Interpretation Comments ALANINE AMINOTRANSFERASE 33 See_Comment [A utomated message] (test code = ALANINE The sys tem which AMINOTRANSFERASE) generated this result transmitted ref erence range: <=65. Th e reference range was not used to int erpret this result as normal/abnormal . [facility] [id number] 10:50:00 Test Item Value Reference Range Interpretation Comments CO2 (test code = CO2) 23 24-32 [facility] [id number] 10:50:00 Test Item Value Reference Range Interpretation Comments Calcium Lvl (test code = Calcium Lvl) 8.8 8.5-10.5 [facility] [id number] 10:50:00 Test Item Value Reference Range Interpretation Comments Potassium Lvl (test code = Potassium 4.0 3.5-5.1 Lvl) [facility] [id number] 10:50:00 Test Item Value Reference Range Interpretation Comments Chloride Lvl (test code = Chloride Lvl) 105 95-109 [facility]2016-08-27 10:50:00 Test Item Value Reference Range Interpretation Comments Creatinine Lvl (test code = Creatinine 0.97 0.50-1.40 Lvl) [facility]2016-08-27 10:50:00 Test Item Value Reference Range Interpretation Comments Glucose Lvl (test code = Glucose Lvl) 103 70-99 [facility]2016-08-27 10:50:00 Test Item Value Reference Range Interpretation Comments BUN (test code = BUN) 11 7-22 [facility]2016-08-27 10:50:00 Test Item Value Reference Range Interpretation Comments Albumin Lvl (test code = Albumin Lvl) 3.4 3.5-5.0 [facility]2016-08-27 10:50:00 Test Item Value Reference Range Interpretation Comments Alk Phos (test code = Alk Phos) 128 39-136 [facility]2016-08-27 10:50:00 Test Item Value Reference Range Interpretation Comments Bili Total (test code = Bili Total) 0.5 0.2-1.3 [facility]2016-08-27 10:50:00 Test Item Value Reference Range Interpretation Comments Sodium Lvl (test code = Sodium Lvl) 139 135-145 [facility]2016-08-27 10:50:00 Test Item Value Reference Range Interpretation Comments AGAP (test code = AGAP) 15.0 10.0-20.0 [facility]2016-08-27 10:50:00 Test Item Value Reference Range Interpretation Comments B/C Ratio (test code = B/C Ratio) 11 6-25 [facility]2016-08-27 10:50:00 Test Item Value Reference Range Interpretation Comments Total Protein (test code = Total 8.0 6.4-8.4 Protein) [facility]2016-08-27 10:50:00 Test Item Value Reference Range Interpretation Comments ASPARTATE TRANSAMINASE 16 See_Comment [Aut omated message] (test code = ASPARTATE The s ystem which TRANSAMINASE) generated this result transmitted ref erence range: <=37. Th e reference range was not used to interpr et this result as normal/abnormal . [facility]2016-08-27 10:50:00 Test Item Value Reference Range Interpretation Comments Globulin (test code = Globulin) 4.6 2.7-4.2 [facility]2016-08-27 10:50:00 Test Item Value Reference Range Interpretation Comments A/G Ratio (test code = A/G Ratio) 0.7 0.7-1.6 [facility] RockXrsoiomUGSSNRDQXO7586-95-70 10:50:00 Test Item Value Reference Range Interpretation Comments Microcyte (test code = 1+ *ABN*(02/17/16 Microcyte) 5:50 AM) [facility] RockSourdecZQJODBXLCF7386-82-75 10:50:00 Test Item Value Reference Range Interpretation Comments Basophils # (test code 0.1 See_Comment [Aut omated message] The = Basophils #) system which generated this result tra nsmitted reference range : <=0.2. The reference r shashi was not used to int erpret this result as normal/abnormal . [facility] RockDrnnkuaCKHZWMUDXX8892-48-92 10:50:00 Test Item Value Reference Range Interpretation Comments Basophils (test code = 0.5 See_Comment [Aut omated message] The Basophils) system which ge nerated this result tra nsmitted reference range : <=1.0. The reference r shashi was not used to int erpret this result as normal/abnormal . [facility] RockYmaqvktYGYHCDSEFK2319-27-01 10:50:00 Test Item Value Reference Range Interpretation Comments Lymphocytes # (test code = Lymphocytes 2.4 1.0-5.5 #) [facility] RockTlhlvekRDGRHYQGNZ3617-99-05 10:50:00 Test Item Value Reference Range Interpretation Comments Monocytes # (test code 0.8 See_Comment [Aut omated message] The = Monocytes #) system which generated this result tra nsmitted reference range : <=0.8. The reference r shashi was not used to int erpret this result as normal/abnormal . [facility] RockIeukgpgUHYTTCOUWB3337-07-16 10:50:00 Test Item Value Reference Range Interpretation Comments Eosinophils # (test code 0.1 See_Comment [A utomated message] The = Eosinophils #) system whic h generated this result tra nsmitted reference range : <=0.5. The reference r shashi was not used to int erpret this result as normal/abnormal . [facility] RockUajzqueACKDAOFRLC5800-67-19 10:50:00 Test Item Value Reference Range Interpretation Comments Segs-Bands # (test code = Segs-Bands #) 8.7 1.5-8.1 [facility] RockMmdjnehLPXNQDIVDH8643-58-53 10:50:00 Test Item Value Reference Range Interpretation Comments Eosinophils (test code = 1.2 See_Comment [A utomated message] The Eosinophils) system which ge nerated this result tra nsmitted reference range : <=4.0. The reference r shashi was not used to int erpret this result as normal/abnormal . [facility] RockMxpqrfdESVEOMTSLY9677-08-80 10:50:00 Test Item Value Reference Range Interpretation Comments Segs (test code = Segs) 72.1 45.0-75.0 [facility] RockLcimkkdHDJNCEQYTR2987-10-67 10:50:00 Test Item Value Reference Range Interpretation Comments Lymphocytes (test code = Lymphocytes) 19.8 20.0-40.0 [facility] RockZfonljvCLQCCUGIJC5475-28-27 10:50:00 Test Item Value Reference Range Interpretation Comments Monocytes (test code = Monocytes) 6.4 2.0-12.0 [facility] RockRcfnkhaHKUUVULLMV7360-45-16 10:50:00 Test Item Value Reference Range Interpretation Comments Platelet (test code = Platelet) 327 133-450 [facility] RockJzafshqYYMVIPZOEU7185-78-76 10:50:00 Test Item Value Reference Range Interpretation Comments MCH (test code = MCH) 24.1 pg 27.0-31.0 [facility] RockTctvhhbLGYPWUPVJE9526-13-26 10:50:00 Test Item Value Reference Range Interpretation Comments MCHC (test code = MCHC) 33.3 32.0-36.0 [facility] RockLsstyjdRQOCRWKRSW0884-73-94 10:50:00 Test Item Value Reference Range Interpretation Comments MPV (test code = MPV) 7.6 7.4-10.4 [facility] RockGepffufOWZBEKHCZK4575-19-40 10:50:00 Test Item Value Reference Range Interpretation Comments RDW (test code = RDW) 16.3 11.5-14.5 [facility] RockMxvahuuRYUETZWCED0016-03-10 10:50:00 Test Item Value Reference Range Interpretation Comments Hgb (test code = Hgb) 13.1 14.0-18.0 [facility] RockIevywcfXMWTDXCHXS1440-55-92 10:50:00 Test Item Value Reference Range Interpretation Comments Hct (test code = Hct) 39.5 42.0-54.0 [facility] AreaJvlhdfvJZHRLDMWAD2050-84-75 10:50:00 Test Item Value Reference Range Interpretation Comments WBC X 10x3 (test code = WBC X 10x3) 12.0 3.7-10.4 [facility] AreaDjnrudnBOHNPMXWWP8886-72-06 10:50:00 Test Item Value Reference Range Interpretation Comments RBC X 10x6 (test code = RBC X 10x6) 5.45 4.70-6.10 [facility] HospitalSswxmrcBPCFDSDOIG9222-95-84 10:50:00 Test Item Value Reference Range Interpretation Comments MCV (test code = MCV) 72.6 80.0-94.0 [facility] HospitalChannelsoft ([place]) TechnologyAC [id number] 10:50:00 Test Item Value Reference Range Interpretation Comments CK-MB INDEX (test 1.6 See_Comment [Automate d message] The code = CK-MB INDEX) system w [facility] generated this result transmit vale reference range : <=2.5. The reference range was not used to interpr et this result as olivia l/abnormal. [facility] HospitalVidable2016-08-27 10:50:00 Test Item Value Reference Range Interpretation Comments CK MB (test code = CK MB) 0.9 0.5-3.6 [facility] AreaE-Cube EnergyMAVNOZC8146-04-57 10:50:00 Test Item Value Reference Range Interpretation Comments Total CK (test code = Total CK) 58 12-191 [facility] DKNEQ2000-12-09 10:50:00 Test Item Value Reference Range Interpretation Comments eGFR (test code = eGFR) 93 [facility] HospitalBaike.com [id number] 10:50:00 Test Item Value Reference Range Interpretation Comments ALANINE AMINOTRANSFERASE 33 See_Comment [A utomated message] (test code = ALANINE The sys tem which AMINOTRANSFERASE) generated this result transmitted ref erence range: <=65. Th e reference range was not used to int erpret this result as normal/abnormal . [facility] [id number] 10:50:00 Test Item Value Reference Range Interpretation Comments CO2 (test code = CO2) 23 24-32 [facility] [id number] 10:50:00 Test Item Value Reference Range Interpretation Comments Calcium Lvl (test code = Calcium Lvl) 8.8 8.5-10.5 [facility]2016-08-27 10:50:00 Test Item Value Reference Range Interpretation Comments Potassium Lvl (test code = Potassium 4.0 3.5-5.1 Lvl) [facility]2016-08-27 10:50:00 Test Item Value Reference Range Interpretation Comments Chloride Lvl (test code = Chloride Lvl) 105 95-109 [facility]2016-08-27 10:50:00 Test Item Value Reference Range Interpretation Comments Creatinine Lvl (test code = Creatinine 0.97 0.50-1.40 Lvl) [facility]2016-08-27 10:50:00 Test Item Value Reference Range Interpretation Comments Glucose Lvl (test code = Glucose Lvl) 103 70-99 [facility]2016-08-27 10:50:00 Test Item Value Reference Range Interpretation Comments BUN (test code = BUN) 11 - [facility]2016-08-27 10:50:00 Test Item Value Reference Range Interpretation Comments Albumin Lvl (test code = Albumin Lvl) 3.4 3.5-5.0 [facility]2016-08-27 10:50:00 Test Item Value Reference Range Interpretation Comments Alk Phos (test code = Alk Phos) 128 39-136 [facility]2016-08-27 10:50:00 Test Item Value Reference Range Interpretation Comments Bili Total (test code = Bili Total) 0.5 0.2-1.3 [facility]2016-08-27 10:50:00 Test Item Value Reference Range Interpretation Comments Sodium Lvl (test code = Sodium Lvl) 139 135-145 [facility]2016-08-27 10:50:00 Test Item Value Reference Range Interpretation Comments AGAP (test code = AGAP) 15.0 10.0-20.0 [facility]2016-08-27 10:50:00 Test Item Value Reference Range Interpretation Comments B/C Ratio (test code = B/C Ratio) 11 - [facility]2016-08-27 10:50:00 Test Item Value Reference Range Interpretation Comments Total Protein (test code = Total 8.0 6.4-8.4 Protein) [facility]2016-08-27 10:50:00 Test Item Value Reference Range Interpretation Comments ASPARTATE TRANSAMINASE 16 See_Comment [Aut omated message] (test code = ASPARTATE The s ystem which TRANSAMINASE) generated this result transmitted ref erence range: <=37. Th e reference range was not used to interpr et this result as normal/abnormal . [facility]2016-08-27 10:50:00 Test Item Value Reference Range Interpretation Comments Globulin (test code = Globulin) 4.6 2.7-4.2 [facility]2016-08-27 10:50:00 Test Item Value Reference Range Interpretation Comments A/G Ratio (test code = A/G Ratio) 0.7 0.7-1.6 [facility] RockWrtxwjtJFOOMXIFYN9192-84-79 10:50:00 Test Item Value Reference Range Interpretation Comments Microcyte (test code = 1+ *ABN*(02/17/16 Microcyte) 5:50 AM) [facility] RockHdmwxyyNWQTFMXNJQ2890-90-61 10:50:00 Test Item Value Reference Range Interpretation Comments Basophils # (test code 0.1 See_Comment [Aut omated message] The = Basophils #) system which generated this result tra nsmitted reference range : <=0.2. The reference r shashi was not used to int erpret this result as normal/abnormal . [facility] RockVedjkvtTLYKQKSBXG6127-69-75 10:50:00 Test Item Value Reference Range Interpretation Comments Basophils (test code = 0.5 See_Comment [Aut omated message] The Basophils) system which ge nerated this result tra nsmitted reference range : <=1.0. The reference r shashi was not used to int erpret this result as normal/abnormal . [facility] RockCdgspgeEKIVQLDEEQ2219-21-10 10:50:00 Test Item Value Reference Range Interpretation Comments Lymphocytes # (test code = Lymphocytes 2.4 1.0-5.5 #) [facility] RockAaopxdhAGOKZYVWXZ8305-10-69 10:50:00 Test Item Value Reference Range Interpretation Comments Monocytes # (test code 0.8 See_Comment [Aut omated message] The = Monocytes #) system which generated this result tra nsmitted reference range : <=0.8. The reference r shashi was not used to int erpret this result as normal/abnormal . [facility] RockXcbovyeNUBMYIYVFC7687-89-46 10:50:00 Test Item Value Reference Range Interpretation Comments Eosinophils # (test code 0.1 See_Comment [A utomated message] The = Eosinophils #) system whic h generated this result tra nsmitted reference range : <=0.5. The reference r shashi was not used to int erpret this result as normal/abnormal . [facility] RockQhnrmquPURZVYMPIW1606-01-23 10:50:00 Test Item Value Reference Range Interpretation Comments Segs-Bands # (test code = Segs-Bands #) 8.7 1.5-8.1 [facility] RockPsxilsmPADKUWKARE3482-31-73 10:50:00 Test Item Value Reference Range Interpretation Comments Eosinophils (test code = 1.2 See_Comment [A utomated message] The Eosinophils) system which ge nerated this result tra nsmitted reference range : <=4.0. The reference r shashi was not used to int erpret this result as normal/abnormal . [facility] RockZiwlyruKMAZIMICPA4628-26-09 10:50:00 Test Item Value Reference Range Interpretation Comments Segs (test code = Segs) 72.1 45.0-75.0 [facility] RockOcjgmqdCUDUWIYKVL4398-70-74 10:50:00 Test Item Value Reference Range Interpretation Comments Lymphocytes (test code = Lymphocytes) 19.8 20.0-40.0 [facility] RockUoyaygbQMNFBKIRES1241-58-47 10:50:00 Test Item Value Reference Range Interpretation Comments Monocytes (test code = Monocytes) 6.4 2.0-12.0 [facility] RockNoagzksICRKVREZRI3352-92-48 10:50:00 Test Item Value Reference Range Interpretation Comments Platelet (test code = Platelet) 327 133-450 [facility] [id number] 10:50:00 Test Item Value Reference Range Interpretation Comments MCH (test code = MCH) 24.1 pg 27.0-31.0 [facility] [id number] 10:50:00 Test Item Value Reference Range Interpretation Comments MCHC (test code = MCHC) 33.3 32.0-36.0 [facility] [id number] 10:50:00 Test Item Value Reference Range Interpretation Comments MPV (test code = MPV) 7.6 7.4-10.4 [facility] [id number] 10:50:00 Test Item Value Reference Range Interpretation Comments RDW (test code = RDW) 16.3 11.5-14.5 [facility] [id number] 10:50:00 Test Item Value Reference Range Interpretation Comments Hgb (test code = Hgb) 13.1 14.0-18.0 [facility] [id number] 10:50:00 Test Item Value Reference Range Interpretation Comments Hct (test code = Hct) 39.5 42.0-54.0 [facility] [id number] 10:50:00 Test Item Value Reference Range Interpretation Comments WBC X 10x3 (test code = WBC X 10x3) 12.0 3.7-10.4 [facility] [id number] 10:50:00 Test Item Value Reference Range Interpretation Comments RBC X 10x6 (test code = RBC X 10x6) 5.45 4.70-6.10 [facility] [id number] 10:50:00 Test Item Value Reference Range Interpretation Comments MCV (test code = MCV) 72.6 80.0-94.0 [facility] Notes Date/Time Note Provider Source 2018-07-05 20:32:00-00:00 [facility] Cardiology Progress Note REPORT#:[id number] REPORT STATUS: Signed DATE:07/05/18 TIME: 2031 PATIENT: BETH NELSON UNIT #: [id number] ROOM/BED: [place] [address] : 69 AGE: 48 SEX: M ATTEND: Yvonne Leon MD ADM AUTHOR: Pretty Smith SPEECH CORRECTION CONSULTANT * ALL edits or amendments must be made on the [email or web address] document * Pretty Smith 07/05/182031: Subjective Chief Complaint: Feeling better today No chest pain no shortness of breath or palpitat ion Walking around in the room Patient reports: No: chest pain, fatigue, fever, nausea, palpitat ions, shortness of breath. Objective General VS/I O: 24 hour I O ending at 0700: 07/05 0700 07/04 1900 Intake Total 800 750 Output Total Balance 800 750 Intake, IV 0 Intake, Oral 800 750 Number 1 Bowel Movements Number Voids 2 5 Vital Signs: Date Time Temp Pulse Resp B/P B/P Pulse O2 O2 F low FiO2 Mean Ox Delivery Rate 07/05 1542 36.8 83 17 114/71 85.0 96 07/05 1058 36.9 78 18 102/64 76.9 94 07/05 0920 98 Room air 07/05 0704 37.0 65 18 116/69 84.9 94 07/05 0502 36.1 63 17 121/80 93.5 100 07/05 0300 72 21 96 30 07/05 0154 36.5 69 16 108/65 79.5 97 07/05 0003 70 19 96 30 07/04 2045 96 Room air 21 Physical Exam General appearance: alert, awake, oriented, no a cute distress Head/Eyes: atraumatic, normocephalic ENT: moist mucosal membranes Neck: full range of motion, non-tender, no JVD Cardiovascular: CV assessment: regular rate and rhythm, normal heart sounds Respiratory: clear to auscultation Abdomen: soft, non-tender Upper extremity: UE assessment: normal temperature Musculoskeletal: full range of motion Neuro/RIP MACHINE OPERATOR: alert, oriented X 3 Skin: dry, intact Psychiatry: normal affect, normal mood Results Telemetry Interpretation: NSR Review of Systems Systems reviewed negative: cardiovascular, const itutional, endocrine, ENT, eyes, GI, heme, musculoskeletal, neuro, psych, r espiratory, skin Diagnosis, Assessment Plan Free Text A P: Mr Nelson is a 48 year old male with past medica l history of hypertension, hyperlipidemia, diabetes, coronary artery diseas e, presented to ER with chest pain. 1. Chest pain -3 sets of troponin are negative -EKG-NSR -ECHO showed Ef of 55% -Cont Aspirin 81 mg daily 2. Coronary artery disease s/p stents to RCA -Cont Aspirin Cont statin, cont imdur -Started patient on plavix 3. Hypertension -Resume home meds 4. Hyperlipidemia Resume homemeds 5. Hx of PE -INR is 2.0, will start warfarin at 3 mg daily Maya Kim 07/24/185: Diagnosis, Assessment Plan Free Text A P: Pt seen and examined, agree with the findings an d plan as documented by SPEECH CORRECTION CONSULTANT at 2035 RPT #:[id number] END OF REPORT 2018-07-05 20:32:00-00:00 [facility] ([facility]) Cardiology Progress Note REPORT#:[id number] REPORT STATUS: Signed DATE:07/05/18 TIME: 2031 PATIENT: BETH NELSON UNIT #: [id number] ROOM/BED: [facility] : 69 AGE: 48 SEX: M ATTEND: Yvonne Leon MD ADM AUTHOR: Pretty Smith NP * ALL edits or amendments must be made on the [email or web address] document * Pretty Smith 07/05/182031: Subjective Chief Complaint: Feeling better today No chest pain no shortness of breath or palpitat ion Walking around in the room Patient reports: No: chest pain, fatigue, fever, nausea, palpitat ions, shortness of breath. Objective General VS/I O: 24 hour I O ending at 0700: 07/05 0700 07/04 1900 Intake Total 800 750 Output Total Balance 800 750 Intake, IV 0 Intake, Oral 800 750 Number 1 Bowel Movements Number Voids 2 5 Vital Signs: Date Time Temp Pulse Resp B/P B/P Pulse O2 O2 F low FiO2 Mean Ox Delivery Rate 07/05 1542 36.8 83 17 114/71 85.0 96 07/05 1058 36.9 78 18 102/64 76.9 94 07/05 0920 98 Room air 07/05 0704 37.0 65 18 116/69 84.9 94 07/05 0502 36.1 63 17 121/80 93.5 100 07/05 0300 72 21 96 30 07/05 0154 36.5 69 16 108/65 79.5 97 07/05 0003 70 19 96 30 07/04 2045 96 Room air 21 Physical Exam General appearance: alert, awake, oriented, no a cute distress Head/Eyes: atraumatic, normocephalic ENT: moist mucosal membranes Neck: full range of motion, non-tender, no JVD Cardiovascular: CV assessment: regular rate and rhythm, normal heart sounds Respiratory: clear to auscultation Abdomen: soft, non-tender Upper extremity: UE assessment: normal temperature Musculoskeletal: full range of motion Neuro/RIP MACHINE OPERATOR: alert, oriented X 3 Skin: dry, intact Psychiatry: normal affect, normal mood Results Telemetry Interpretation: NSR Review of Systems Systems reviewed negative: cardiovascular, const itutional, endocrine, ENT, eyes, GI, heme, musculoskeletal, neuro, psych, r espiratory, skin Diagnosis, Assessment Plan Free Text A P: Mr Nelson is a 48 year old male with past medica l history of hypertension, hyperlipidemia, diabetes, coronary artery diseas e, presented to ER with chest pain. 1. Chest pain -3 sets of troponin are negative -EKG-NSR -ECHO showed Ef of 55% -Cont Aspirin 81 mg daily 2. Coronary artery disease s/p stents to RCA -Cont Aspirin Cont statin, cont imdur -Started patient on plavix 3. Hypertension -Resume home meds 4. Hyperlipidemia Resume homemeds 5. Hx of PE -INR is 2.0, will start warfarin at 3 mg daily Maya Kim 07/24/18 2245: Diagnosis, Assessment Plan Free Text A P: Pt seen and examined, agree with the findings an d plan as documented by SPEECH CORRECTION CONSULTANT at 2035 at 2246 RPT #:[id number] END OF REPORT 2018-07-04 15:04:00-00:00 [facility] Cardiology Progress Note REPORT#:[id number] REPORT STATUS: Signed DATE:07/04/18 TIME: 1504 PATIENT: BETH NELSON UNIT #: [id number] ROOM/BED: 5597-2 : 69 AGE: 48 SEX: M ATTEND: Yvonne Leon MD ADM AUTHOR: Pretty Smith NP * ALL edits or amendments must be made on the el [employer]/computer document * Pretty Smith. 07/04/18 1504: Subjective Chief Complaint: Feeling better today No chest pain no shortness of breath or palpitat ion Patient reports: No: chest pain, fatigue, nausea, palpitations, s hortness of breath. Objective General VS/I O: 24 hour I O ending at 0700: 07/04 0700 07/03 1900 Intake Total 670.00 890 Output Total Balance 670.00 890 Intake, IV 20.00 Intake, Oral 650 890 Number Voids 5 4 Patient 125.909 kg Weight Weight Stated/Reported Measurement Method Vital Signs: Date Time Temp Pulse Resp B/P B/P Pulse O2 O2 F low FiO2 Mean Ox Delivery Rate 07/04 1316 84 19 97 30 07/04 1316 97 BiPAP 30 07/04 1130 36.2 71 18 99/63 74.7 92 Room air 07/04 0736 36.5 81 18 119/62 81.2 97 Room air 07/04 0345 36.3 80 18 124/74 90.7 94 Room air 07/03 2246 36.9 81 18 112/65 80.4 95 Room air 07/03 2131 37.0 98 17 115/65 81.8 94 07/03 2032 37.0 81 16 104/67 79.5 91 07/03 1939 36.8 85 18 98/61 73.6 93 Room air 07/03 1525 36.9 85 20 113/71 84.8 96 Physical Exam General appearance: alert, awake, oriented, no a cute distress Head/Eyes: atraumatic, normocephalic ENT: moist mucosal membranes Neck: full range of motion, non-tender, no JVD Cardiovascular: CV assessment: regular rate and rhythm, normal heart sounds Respiratory: clear to auscultation Abdomen: soft, non-tender Upper extremity: UE assessment: normal temperature Musculoskeletal: full range of motion Neuro/RIP MACHINE OPERATOR: alert, oriented X 3 Skin: dry, intact Psychiatry: normal affect, normal mood Results Telemetry Interpretation: NSR Review of Systems Systems reviewed negative: cardiovascular, const itutional, endocrine, ENT, eyes, GI, neuro, psych, skin Treatment Prophylaxis Treatment Prophylaxis Reeves documentation: The data below has been impo rted from nursing documentation. Any exceptions have been noted below under Provider comments. _ Nursing Documentation Date reeves inserted: Date reeves discontinued: _ Provider comments: [] Diagnosis, Assessment Plan Free Text A P: Mr Nelson is a 48 year old male with past medica l history of hypertension, hyperlipidemia, diabetes, coronary artery diseas e, presented to ER with chest pain. 1. Chest pain -3 sets of troponin are negative -EKG-NSR -ECHO pending -Start Aspirin 81 mg daily 2. Coronary artery disease s/p stents to RCA -Cont Aspirin Cont statin, cont imdur Per patient he stated he was taking plavix but n one in homemeds will confirm with patient and then start in am 3. Hypertension -Resume home meds 4. Hyperlipidemia Resume homemeds 5. Hx of PE -INR is 3.4 , will hold warfarin for today and s tart in am also get oked by Maya Farias 07/24/18 2222: Diagnosis, Assessment Plan Free Text A P: Pt seen and examined, agree with the findings an d plan as documented by SPEECH CORRECTION CONSULTANT at 1508 RPT #:[id number] END OF REPORT 2018-07-04 15:04:00-00:00 [facility] ([facility]) Cardiology Progress Note REPORT#:[id number] REPORT STATUS: Signed DATE:07/04/18 TIME: 1504 PATIENT: BETH NELSON UNIT #: [id number] ROOM/BED: [place] [address] : 69 AGE: 48 SEX: M ATTEND: Yvonne Leon MD ADM AUTHOR: Pretty Smith NP * ALL edits or amendments must be made on the [email or web address]/computer document * Pretty Smith. 07/04/18 1504: Subjective Chief Complaint: Feeling better today No chest pain no shortness of breath or palpitat ion Patient reports: No: chest pain, fatigue, nausea, palpitations, s hortness of breath. Objective General VS/I O: 24 hour I O ending at 0700: 07/04 0700 07/03 1900 Intake Total 670.00 890 Output Total Balance 670.00 890 Intake, IV 20.00 Intake, Oral 650 890 Number Voids 5 4 Patient 125.909 kg Weight Weight Stated/Reported Measurement Method Vital Signs: Date Time Temp Pulse Resp B/P B/P Pulse O2 O2 Flow FiO2 Mean Ox Delivery Rate 07/04 1316 84 19 97 30 07/04 1316 97 BiPAP 30 07/04 1130 36.2 71 18 99/63 74.7 92 Room air 07/04 0736 36.5 81 18 119/62 81.2 97 Room air 07/04 0345 36.3 80 18 124/74 90.7 94 Room air 07/03 2246 36.9 81 18 112/65 80.4 95 Room air 07/03 2131 37.0 98 17 115/65 81.8 94 07/03 2032 37.0 81 16 104/67 79.5 91 07/03 1939 36.8 85 18 98/61 73.6 93 Room air 07/03 1525 36.9 85 20 113/71 84.8 96 Physical Exam General appearance: alert, awake, oriented, no a cute distress Head/Eyes: atraumatic, normocephalic ENT: moist mucosal membranes Neck: full range of motion, non-tender, no JVD Cardiovascular: CV assessment: regular rate and rhythm, normal heart sounds Respiratory: clear to auscultation Abdomen: soft, non-tender Upper extremity: UE assessment: normal temperature Musculoskeletal: full range of motion Neuro/RIP MACHINE OPERATOR: alert, oriented X 3 Skin: dry, intact Psychiatry: normal affect, normal mood Results Telemetry Interpretation: NSR Review of Systems Systems reviewed negative: cardiovascular, const itutional, endocrine, ENT, eyes, GI, neuro, psych, skin Treatment Prophylaxis Treatment Prophylaxis Reeves documentation: The data below has been impo rted from nursing documentation. Any exceptions have been noted below under Provider comments. _ Nursing Documentation Date reeves inserted: Date reeves discontinued: _ Provider comments: [] Diagnosis, Assessment Plan Free Text A P: Mr Nelson is a 48 year old male with past medica l history of hypertension, hyperlipidemia, diabetes, coronary artery diseas e, presented to ER with chest pain. 1. Chest pain -3 sets of troponin are negative -EKG-NSR -ECHO pending -Start Aspirin 81 mg daily 2. Coronary artery disease s/p stents to RCA -Cont Aspirin Cont statin, cont imdur Per patient he stated he was taking plavix but n one in homemeds will confirm with patient and then start in am 3. Hypertension -Resume home meds 4. Hyperlipidemia Resume homemeds 5. Hx of PE -INR is 3.4 , will hold warfarin for today and s tart in am also get oked by neuro Maya Kim 07/24/18 2222: Diagnosis, Assessment Plan Free Text A P: Pt seen and examined, agree with the findings an d plan as documented by SPEECH CORRECTION CONSULTANT at 1508 at 7408 RPT #:[id number] END OF REPORT 2018-07-03 14:18:00-00:00 [facility]L [facility] ([facility]) Cardiology Consultation REPORT#:[id number] REPORT STATUS: Signed DATE:07/03/18 TIME: 1417 PATIENT: BETH NELSON UNIT #: [id number] ROOM/BED: [place] [address] : 69 AGE: 48 SEX: M ATTEND: Yvonne Leon MD ADM AUTHOR: Pretty Smith SPEECH CORRECTION CONSULTANT * ALL edits or amendments must be made on the [email or web address]/computer document * Pretty Smith. 07/03/188: History of Present Illness HPI Requesting Clinician: Dr Jenny russell Reason for consult: Chest pain CAD Chief complaint: Chest pain HPI: Mr Nelson is a 48 year old male with past medica l history of hypertension, coronary artery disease,, DE STEMI in 2016, stents to RCA, stress test at [facility] 2 months ago, normal per patient. congestive heart failure, and hyperlipidmeia. Patient presented to Er with complain of chest p ain. Patient described chest pain as sharp, woke up with left shoulde r pain, radiating to left arm, 8/10 in intensity. No aggravating or relieving f actor. Patient said he took sublingual nitrate the pain was relieved for few minute but reoccured. According to the patient he has been going throughalot of stress lately. He also states he has severe anxiety and has been having hand tremors for 2 weeks. Denies palpitation, headache,nauisea, vomiting o r dizziness. History - Adult longitudinal Past medical history: Reports: Congestive heart failure, Hypertension. Smoking status for patients 13 years old or olde r: Never Smoker Other social history: Lives in facility Allergies: Coded Allergies: butorphanol (From STADOL) (Intermediate, tachyca rdia 08/30/14) tamsulosin (From FLOMAX) (Intermediate, feels ho t all over body 08/30/14) tramadol (Intermediate, short of breath 08/30/14 ) gabapentin (From NEURONTIN) (UNKNOWN 07/03/18) Review of Systems Systems reviewed negative: Cardiovascular, Const itutional, Endocrine, ENT, Eyes, GI, Musculoskeletal, Neuro, Psych, Respira tory, Skin Objective Physical Exam VS/I O: Vital Signs: Date Time Temp Pulse Resp B/P B/P Pulse O2 O2 Flow FiO2 Mean Ox Delivery Rate 07/031 37.0 98 17 115/65 81.8 94 07/03 2032 37.0 81 16 104/67 79.5 91 07/03 1939 36.8 85 18 98/61 73.6 93 Room air 07/03 1525 36.9 85 20 113/71 84.8 96 07/03 1313 37.0 93 20 130/67 87.9 95 Room air 07/03 1001 86 17 128/67 87 97 Room air 07/03 0931 37.1 93 19 131/68 89 99 Room air General appearance: alert, awake, oriented, no a cute distress Head/Eyes: atraumatic, normocephalic ENT: moist mucosal membranes Neck: full range of motion, non-tender, no JVD Cardiovascular: CV assessment: regular rate and rhythm, normal heart sounds Respiratory: clear to auscultation, no distress Abdomen: soft, non-tender, normal bowel sounds Upper extremity: UE assessment: normal temperature Musculoskeletal: full range of motion Neuro/RIP MACHINE OPERATOR: alert, oriented X 3 Skin: dry, intact Psychiatry: anxious, depressed Diagnosis, Assessment Plan Free Text A P: Mr Nelson is a 48 year old male with past medica l history of hypertension, hyperlipidemia, diabetes, coronary artery diseas e, presented to ER with chest pain. 1. Chest pain -3 sets of troponin are negative -Get an EKG -ECHO for Ef assessment and R/O wall motion abno rmality -Start Aspirin 81 mg daily 2. Coronary artery disease s/p stents to RCA -Start Aspirin Start statin Per patient he stated he was taking plavix but n one in homemeds will confirm with patient and then start in am 3. Hypertension -Resume home meds 4. Hyperlipidemia Resume homemeds 5. Hx of PE -INR is 3.7 , will hold warfarin for today and s tart in am also get oked by neuro Thank you Dr Antonio Russell [facility] 2222: Diagnosis, Assessment Plan Free Text A P: Pt seen and examined, agree with the findings an d plan as documented by SPEECH CORRECTION CONSULTANT at 2230 RPT #:[id number] END OF REPORT 2018-07-03 14:18:00-00:00 [facility]L [facility] ([facility]) Cardiology Consultation REPORT#:[id number] REPORT STATUS: Signed DATE:07/03/18 TIME: 1417 PATIENT: BETH NELSON UNIT #: [id number] ROOM/BED: [place] [address] : 69 AGE: 48 SEX: M ATTEND: Yvonne Leon MD ADM AUTHOR: Pretty Smith NP * ALL edits or amendments must be made on the [email or web address]/computer document * Pretty Smith 07/03/18 1418: History of Present Illness HPI Requesting Clinician: Dr Jenny russell Reason for consult: Chest pain CAD Chief complaint: Chest pain HPI: Mr Nelson is a 48 year old male with past medica l history of hypertension, coronary artery disease,, DE STEMI in 2016, stents to RCA, stress test at [facility] 2 months ago, normal per patient. congestive heart failure, and hyperlipidmeia. Patient presented to Er with complain of chest p ain. Patient described chest pain as sharp, woke up with left shoulde r pain, radiating to left arm, 8/10 in intensity. No aggravating or relieving f actor. Patient said he took sublingual nitrate the pain was relieved for few minute but reoccured. According to the patient he has been going throughalot of stress lately. He also states he has severe anxiety and has been having hand tremors for 2 weeks. Denies palpitation, headache,nauisea, vomiting o r dizziness. History - Adult longitudinal Past medical history: Reports: Congestive heart failure, Hypertension. Smoking status for patients 13 years old or olde r: Never Smoker Other social history: Lives in facility Allergies: Coded Allergies: butorphanol (From STADOL) (Intermediate, tachyca rdia 08/30/14) tamsulosin (From FLOMAX) (Intermediate, feels ho t all over body 08/30/14) tramadol (Intermediate, short of breath 08/30/14 ) gabapentin (From NEURONTIN) (UNKNOWN 07/03/18) Review of Systems Systems reviewed negative: Cardiovascular, Const itutional, Endocrine, ENT, Eyes, GI, Musculoskeletal, Neuro, Psych, Respira tory, Skin Objective Physical Exam VS/I O: Vital Signs: Date Time Temp Pulse Resp B/P B/P Pulse O2 O2 F low FiO2 Mean Ox Delivery Rate 07/03 2131 37.0 98 17 115/65 81.8 94 07/03 2032 37.0 81 16 104/67 79.5 91 07/03 1939 36.8 85 18 98/61 73.6 93 Room air 07/03 1525 36.9 85 20 113/71 84.8 96 07/03 1313 37.0 93 20 130/67 87.9 95 Room air 07/03 1001 86 17 128/67 87 97 Room air 07/03 0931 37.1 93 19 131/68 89 99 Room air General appearance: alert, awake, oriented, no a cute distress Head/Eyes: atraumatic, normocephalic ENT: moist mucosal membranes Neck: full range of motion, non-tender, no JVD Cardiovascular: CV assessment: regular rate and rhythm, normal heart sounds Respiratory: clear to auscultation, no distress Abdomen: soft, non-tender, normal bowel sounds Upper extremity: UE assessment: normal temperature Musculoskeletal: full range of motion Neuro/RIP MACHINE OPERATOR: alert, oriented X 3 Skin: dry, intact Psychiatry: anxious, depressed Diagnosis, Assessment Plan Free Text A P: Mr Nelson is a 48 year old male with past medica l history of hypertension, hyperlipidemia, diabetes, coronary artery diseas e, presented to ER with chest pain. 1. Chest pain -3 sets of troponin are negative -Get an EKG -ECHO for Ef assessment and R/O wall motion abno rmality -Start Aspirin 81 mg daily 2. Coronary artery disease s/p stents to RCA -Start Aspirin Start statin Per patient he stated he was taking plavix but n one in homemeds will confirm with patient and then start in am 3. Hypertension -Resume home meds 4. Hyperlipidemia Resume homemeds 5. Hx of PE -INR is 3.7 , will hold warfarin for today and s tart in am also get oked by neuro Thank you Dr Antonio Russell for the cons ult Maya Kim 07/24/18 2222: Diagnosis, Assessment Plan Free Text A P: Pt seen and examined, agree with the findings an d plan as documented by SPEECH CORRECTION CONSULTANT at 2230 at 2230 RPT #:[id number] END OF REPORT 2018-07-03 09:24:00-00:00 [facility] EMERGENCY PROVIDER REPORT REPORT#:[id number] REPORT STATUS: Signed DATE:07/03/18 TIME: 923 PATIENT: BETH NELSON UNIT #: [id number] ROOM/BED: [place] [address] AGE: 48 SEX: M PCP PHYS: Cecilio Andrade SERVICE AUTHOR: Annmarie Guaman MD * ALL edits or amendments must be made on the [email or web address] document * See Addendum HPI-Chest Pain 40 and Over General Confirmed Patient Yes Patient Type New patient Initial Greet Date/Time 07/03/[address] Andrade (at [facility]) Presentation Chief Complaint Chest pain Hx Obtained From Patient, Educational Speech Language Clinician Sudden in Onset? Yes Onset Occurred Hours ago (5:30 AM), 5:30 AM Symptom Duration Since onset Progression since Onset Unchanged Quality Painful Radiation Does not radiate. )( Migration/Movement None Severity: Onset Moderate Severity: Current Moderate Associated with Reports: Dizziness, Nausea, Shortness of Breath. Denies: Vomiting. Exacerbated by Nothing Relieved by Nitroglycerin at home x 3 (minimal r elief) Free Text HPI Notes Free Text HPI Notes 48 y/o M, with PMHx of HDL, HTN, DM, CHF, and CAD presents to ED via EMS with c/ o chest pain that radiates t o this left shoulder, that began at 0530. Pt states that he woke up with this pain. 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 Pt additionally reports associated anxiety which is causing him to be "shakey". Pt also reports nausea, dizziness, and SOB. Pt denies emesis. Pt reports that his PCP is Dr. Andrade at [facility]. Pt has no other complaints at this time . Portions of this section were scribed by Autumn Victoria on 07/03/18 at 1236 Risk-Chest Pain 40 and Over Risk Stratification )( Coronary Artery Disease Risk factors reviewed , Hypertension, Known CAD )( Thoracic Aortic Dissection Risk factors revie wed, Hypertension )( Pulmonary Embolism Risk factors reviewed, Pre vious PE )( AMI-Aspirin Aspirin Last 24 Hrs 324 mg, On arrival Portions of this section were scribed by Autumn Victoria on 07/03/18 at 0933 Review of Systems ROS Statements All systems rev neg except as marked. Focused Review of Systems Respiratory Reports: Shortness of breath. Cardiovascular Reports: Chest pain. GI Reports: Nausea. Denies: Vomiting. Neurologic Reports: Dizziness. Portions of this section were scribed by Autumn Victoria on 07/03/18 at 1048 Past Medical History - Adult Stated Complaint PT REPORTS ANXIETY CHEST PAIN Allergies Coded Allergies: butorphanol (From STADOL) (Intermediate, tachyca rdia 08/30/14) tamsulosin (From FLOMAX) (Intermediate, feels ho t all over body 08/30/14) tramadol (Intermediate, short of breath 08/30/14 ) gabapentin (From NEURONTIN) (UNKNOWN 07/03/18) Home Medications Discontinued Scripts ACETAMINOPHEN/CODEINE (TYLENOL WITH CODE INE #3 300/30 MG) 1 TAB PO Q6H PRN PRN back pain ACETAMINOPHEN/CODEINE (TYLENOL WITH CODEINE #3 300/30 MG) 1 TAB PO Q6H PRN PRN back pain #15 TAB Prov: 09/02/14 DC: 07/03/18 0933 DC prior to admit metroNIDAZOLE (FLAGYL) 500 MG PO BID metroNIDAZOLE (FLAGYL) 500 MG PO BID #6 TAB Prov: 09/02/14 DC: 07/03/18 0933 DC prior to admit POTASSIUM CHLORIDE ER (MICRO-K) 8 MEQ PO DAILY POTASSIUM CHLORIDE ER (MICRO-K) 8 MEQ PO DAILY #5 CAP.ER Prov: 09/02/14 DC: 07/03/18 0933 DC prior to admit Reported Medications ISOSORBIDE MONONITRATE SR (IMDUR) 30 MG PO DAILY WARFARIN (COUMADIN) 10 MG PO DAILY METHOCARBAMOL (ROBAXIN) 1,500 MG PO DAILY metFORMIN (GLUCOPHAGE) 500 MG PO DAILY PRN PRN B LOOD SUGAR METOPROLOL SUCC XL (TOPROL XL) 12.5 MG PO DAILY PRN PRN PULSE RATE >115 aMILoride (MIDAMOR) 5 MG PO BID MEALS ALLOPURINOL (ZYLOPRIM) 300 MG PO DAILY ATORVASTATIN (LIPITOR) 40 MG PO BEDTIME clonazePAM (KlonoPIN) 0.5 MG PO BID PARoxetine HCL (PAXIL) 40 MG PO DAILY BUPRENORPHINE/NALOXONE (SUBOXONE 8/2 MG SL FILM) 1 TAB SL ONCE PROMETHAZINE (PHENERGAN) 25 MG PO Q6H PRN PRN VO MITING POTASSIUM CHLORIDE ER (KLOR-CON M20) 20 MEQ PO T ID MAGNESIUM OXIDE (MAG-OXIDE) 800 MG PO DAILY Discontinued Reported Medications ALLOPURINOL (ZYLOPRIM) 300 MG PO DAILY WARFARIN (COUMADIN) 7.5 MG PO TUTHSA FUROSEMIDE (LASIX) 80 MG PO BID RANOLAZINE ER (RANEXA) 1,000 MG PO BID LOSARTAN (COZAAR) (Unknown Dose) PANTOPRAZOLE DR (PROTONIX) 40 MG PO DAILY SERTRALINE (ZOLOFT) 50 MG PO DAILY Pt reports no significant: Past surgical history , Family history Past Medical History: Reports: Congestive heart failure, Hypertension. Other Social History Lives in facility Portions of this section were scribed by Autumn Victoria on 07/03/18 at 1044 Physical Exam Vital Signs Vital Signs First Documented: Result Date Time Pulse Ox 99 07/03 930 B/P 131/68 07/03 930 B/P Mean 89 07/03 930 O2 Delivery Room air 07/03 930 Temp 37.1 07/03 930 Pulse 93 07/03 930 Resp 07/03 Last Documented: Result Date Time Pulse Ox 97 07/03 1001 B/P 128/67 07/03 1001 B/P Mean 87 07/03 1001 O2 Delivery Room air 07/03 1001 Pulse 86 07/03 1001 Resp 17 07/03 1001 Temp 37.1 01/11 0931 Review of Vital Signs Reviewed Focused PE General/Const General/Const Awake, Alert, Well developed Text/Dict Notes tremulous/shaking Eyes Eyes EOMI, Conjunctiva NL MS Neck Neck Supple, Full range of motion Resp/Chest Respiratory/Chest No respiratory distre ss, No rales, No rhonchi, No wheezing, No retractions, No chest tenderness, [place] Cardiovascular Cardiovascular Heart rate NL, Regular rhythm, H eart sounds NL, No gallop, No murmurs, No rubs Abdomen/GI Abdomen/GI Soft, Non-tender, No guarding, No re bound, No distention Skin Skin Warm Text/Dict Notes 0.5cm nodule to inner R calf Neurologic Neurologic Oriented X3, Speech NL Additional PE Ears/Nose/Throat Ears/Nose/Throat Airway patent, Mucous membrane s moist Portions of this section were scribed by Autumn Victoria on 07/03/18 at 1236 Interpretation Diagnostics Lab Results Interpretation Results Laboratory Tests 07/03/18 0937: [Embedded Image Not Available] Laboratory Tests: 07/03 07/03 07/03 0941 0937 0937 Chemistry Sodium (134 - 147 mEq/L) 134 Potassium (3.4 - 5.0 mEq/L) 4.0 Chloride (100 - 108 mEq/L) 101 Carbon Dioxide (21 - 33 mEq/L) 25 Anion Gap (0 - 20) 12 BUN (7 - 18 mg/dL) 15 Creatinine (0.6 - 1.3 mg/dL) 1.1 Glomerular Filtr Rate (95 - 105) 71.1 L Glucose (70 - 110 mg/dL) 126 H Hemoglobin A1c (4.8 - 6.0 %A1C) 6.7 H Calcium (8.0 - 10.5 mg/dL) 8.8 Rapid Troponin I (0.00 - 0.08 ng/mL) 0.00 Coagulation INR (0.8 - 1.2) 3.7 H PT Patient/Control Mix (9.3 - 12.9 SECONDS) 42. 7 H Hematology WBC (4.5 - 11.0 x10 3/uL) 10.27 RBC (4.00 - 5.60 x10 6/uL) 4.63 Hgb (12.5 - 16.9 g/dL) 11.7 L Hct (37.5 - 50.7 %) 37.6 MCV (81.0 - 99.0 fL) 81.2 MCH (27.0 - 33.0 pg) 25.3 L MCHC (33.0 - 37.0 g/dL) 31.1 L RDW (11.5 - 14.5 %) 16.5 H Plt Count (150 - 400 x10 3/uL) 358 MPV (7.0 - 9.0 fL) 9.1 H Neut % (Auto) (56.0 - 77.0 %) 80.1 H Lymph % (Auto) (14.0 - 32.0 %) 12.0 L [place] % (Auto) (4.8 - 9.0 %) 6.8 Eos % (Auto) (0.3 - 3.7 %) 0.3 Baso % (Auto) (0.0 - 2.0 %) 0.4 Neut # (Auto) (2.0 - 7.6 x10 3/uL) 8.23 H Lymph # (Auto) (1.0 - 3.8 x10 3/uL) 1.23 [place] # (Auto) (0.1 - 0.8 x10 3/uL) 0.70 Eos # (Auto) (0.0 - 0.2 x10 3/uL) 0.03 Baso # (Auto) (0.0 - 0.2 x10 3/uL) 0.04 Abs Immat Gran (auto) (0.00 - 0.03 x10 3/uL) 0. 04 H Add Manual Diff NO Immature Gran % (0.0 - 2.0 %) 0.4 Nucleated RBC % (0 - 0 %) 0.0 Nucleated RBCs # (Man) (0.0 - 0.1 x10 3/uL) 0.0 0 Recent Impressions: RADIOLOGY - XR CHEST 2 V 07/03 0948 Report Impression - Status: SIGNED Entered: 07/03/2018 0954 IMPRESSION: No acute cardiopulmonary process. SL: [id number] Impression By: [email or web address] - Kang Pierre D.O. Lab Imaging Statement Laboratory radiographic studies reviewed and con sidered in the medical decision-making. ECG #1 Interpretation ECG Documented in MUSE Yes Date 07/03/18 Time 0926 Interpreted by ED physician NL ECG Interpretation Normal rate, Normal sinus rhythm, No STEMI, Normal ST waves Rate 92 Conduction/[place] RBBB Radiography X-Ray Chest View PA lat Text/Dict Note IMPRESSION: No acute cardiopulmonary process. Interpretation/Wet Read by Interpret - Radiolog ist Reviewed by ED physician Portions of this section were scribed by Autumn Victoria on 07/03/18 at 1236 Re-Evaluation MDM Free Text MDM Notes Free Text MDM Notes no stemi no nsemi unstable angina vs. anxiety difficult to tell in this pt with sig cardiac hx not dissection, no radiation of pain not pe, stating more typical for either his anxi ety or his cad Re-Evaluation/Progress #1 Text/Dict Note Pt was notified of all test results and plan for admission. Pt understands and agrees to plan at this time. Time of Re-Eval 1017 Re-Eval Status Unchanged Plan Post Re-Eval Plan admit ED Course Medication(s) Ordered Medication(s) Ordered: Cardiovascular Drugs Sig/Any Start time Last Medication Dose Route Stop Time Status Admin Nitroglycerin 0.4 MG Q5M PRN PRN 07/03 0945 DC SL 07/04 0944 Central Nervous System Agents Sig/Any Start time Last Medication Dose Route Stop Time Status Admin Clonazepam 1 MG TID 07/03 0845 DC 07/03 PO 08/02 0944 1406 Eye, Ear, Nose And Throat (Een Sig/Any Start time Last Medication Dose Route Stop Time Status Admin Sodium Chloride 0 ASDIR PRN 07/03 0945 DC IV 07/04 0838 Gastrointestinal Drugs Sig/Any Start time Last Medication Dose Route Stop Time Status Admin Ondansetron HCl 4 MG Q6H PRN PRN 07/03 1030 DC IV 07/04 0917 Differential Diagnosis Differential Diagnosis Acute coronary syndrome, Acute myocardial infarct, Anxiety disorder, Aortic dissection, Aortic sten osis, Asthma exacerbation, Bronchitis, Chest pain, Chest pain, acute, [place] cystitis, Cholelithiasis, Congestive heart failure, Contusion, Costochondr itis, Dysrhythmia, Esophageal rupture, Esophagitis, Gastritis, GERD, Gun shot wound chest, Hiatal hernia, Hypertroph cardiomyopathy, M allory-Holbrook syndrome, Mitral stenosis, Mitral valve prolapse, Musculoskeletal pa in, Myocardial infarction, Myocarditis, Peptic ulcer disease, Pericarditis, Pleurisy, Pneumomediastin um, Pneumonia, Pneumothorax, Pulmonary edema, Pulmonary embolism, Rib fractur e, Stab wound chest, Stable angina, Unstable angina Portions of this section were scribed by Autumn Victoria on 07/03/18 at 1236 Patient Discharge Departure Vital Signs/Condition Vital Signs First Documented: Result Date Time Pulse Ox 99 07/03 930 B/P 131/68 07/03 930 B/P Mean 89 07/03 0831 O2 Delivery Room air 07/03 930 Temp 37.1 07/03 930 Pulse 93 07/03 930 Resp 19 07/03 930 Last Documented: Result Date Time Pulse Ox 97 07/03 1001 B/P 128/67 07/03 1001 B/P Mean 87 07/03 1001 O2 Delivery Room air 07/03 1001 Pulse 86 07/03 1001 Resp 17 07/03 1001 Temp 37.1 07/03 930 All vital signs available at the time of this en try have been reviewed. Condition Guarded Clinical Impression Clinical Impression Primary Impression: Chest pain Disposition Decision Admit Admit Physician Name Yvonne Alvarado MD Admit Physician Hospitalist Request Time 1017 Request Date 07/03/18 )( Admission Accepts Yes )( Accepted Time 1017 )( Accepted Date 07/03/18 Call Information will see patient, agrees with eval, agrees with plan Discharge/Care Plan Counseled Regarding Diagnosi s, Lab results, Imaging studies, Need for admission Supervising Physician Note Scribe Statement Autumn Victoria, 07/03/18 0945 , scribing for and in the presence of Annmarie Leija. Signed By: Autumn Victoria, 07/03/18 0945 Portions of this section were scribed by Autumn Victoria on 07/03/18 at 1018 Electronically Signed by Annmarie Guaman MD on 0 07/04/18 at 1258 Addendum 1: 08/04/18 0127 by Annmarie Guaman MD I personally performed the s ervices described in this documentation and reviewed the documentation that was dictated to the scrib e(s) in my presence, and it accurately records my words and actions. Annmarie Logan, 08/04/18 Electronically Signed by Annmarie Guaman MD on 0 08/04/18 at 0127 RPT #:[id number] END OF REPORT
[2022-11-25] MEDS ORDERED: KETOROLAC 30 MG/ML INJ ONE (17:01)
--- NOTE | 2022-11-25 17:16 | RAD REPORT ---
EXAM DESCRIPTION: RAD - Foot Left 3 View - 11/25/2022 5:06 pm CLINICAL HISTORY: PAIN COMPARISON: <Comparisons> FINDINGS: Diffuse osteopenia is present. Moderate soft tissue swelling is present along the dorsal f orefoot. No fractures appreciated. Given the degree of osteopenia, if pain persists time, MRI followup would be advised.
--- NOTE | 2022-11-25 17:25 | EDPHYS ---
Physician Documentation [facility] Name: Marquis Nelson Age: 52 yrs Sex: Male : 1970 Arrival Date: 11/25/2022 Time: 15:36 Bed 12 Private MD: ED Physician Ernesto Clemons HPI: 11/25 15:46 This 52 yrs old Male presents to ER via Unassigned with complaints of Foot Injury. kb 15:46 The patient presents with a contusion, an injury, pain, swelling, tenderness. The kb complaints affect the dorsum of left foot. Context: The problem was sustained outdoors, resulted from a direct blow, the patient can fully bear weight, the patient is able to ambulate. Onset: The symptoms/episode began/occurred yesterday. Modifying factors: The symptoms are alleviated by nothing. the symptoms are aggravated by movement. Associated signs and symptoms: Pertinent positives: swelling, Pertinent negatives calf tenderness, fever, nausea, numbness, rash, tingling, vomiting, warmth, weakness. Treatment prior to arrival includes: no previous treatment. Severity of symptoms: At their worst the symptoms were moderate, in the emergency department the symptoms are unchanged. The patient has not experienced similar symptoms in the past. The patient has not recently seen a physician. Historical: - Allergies: 15:50 Beta Blockers (sensitive/hypotension); hb 15:50 Flomax; hb 15:50 Ibuprofen; hb 15:50 Neurontin; hb 15:50 Remeron; hb 15:50 Skelaxin; hb 15:50 spironolactone; hb 15:50 Stadol; hb 15:50 tramadol; hb 15:50 Trazodone; hb - PMHx: 15:50 AAA; ADD/ADHD; Anemia; Anxiety; Atrial Fib; CAD; CHF; GERD; High Cholesterol; hb Myocardial infarction; Pacemaker; Pulmonary Embolism; - Immunization history:: Adult Immunizations up to date. - Social history:: Smoking status: Patient denies any tobacco usage or history of. ROS: 15:45 Constitutional: Negative for fever, chills, and weight loss. kb 15:45 MS/extremity: Positive for ecchymosis, pain, swelling, tenderness, of the left foot. 15:45 All other systems are negative. Exam: 15:45 Constitutional: This is a well developed, well nourished patient who is awake, alert, kb and in no acute distress. Head/Face: Normocephalic, atraumatic. ENT: Moist Mucous membranes Cardiovascular: Regular rate and rhythm with a normal S1 and S2. No gallops, murmurs, or rubs. No pulse deficits. Respiratory: Respirations even and unlabored. No increased work of breathing. Talking in full sentences Skin: Warm, dry with normal turgor. Normal color. Neuro: Awake and alert, GCS 15, oriented to person, place, time, and situation. Moves all extremities. Normal gait. 15:45 Musculoskeletal/extremity: Extremities: grossly normal except: noted in the dorsum of left foot: contusion, ecchymosis, pain, swelling, tenderness, ROM: intact in all extremities, Circulation is intact in all extremities. Sensation intact. Weight bearing: able to fully bear weight. Vital Signs: 15:48 BP 153 / 73; Pulse 63; Resp 16; Temp 98.8; Pulse Ox 100% on R/A; Weight 128.37 kg; hb Height 5 ft. 10 in. ; Pain 8/10; 17:40 BP 148 / 74; Pulse 84; Resp 17; Pulse Ox 98% on R/A; hb 15:48 Body Mass Index 40.61 (128.37 kg, 177.8 cm) hb 15:48 Pain Scale: Adult hb MDM: 15:40 Patient medically screened. kb 15:46 Differential diagnosis: dislocation, closed fracture, contusion. Data reviewed: vital kb signs, nurses notes. 17:24 Counseling: I had a detailed discussion with the patient and/or guardian regarding: the kb historical points, exam findings, and any diagnostic results supporting the discharge/admit diagnosis, radiology results, the need for outpatient follow up, a orthopedic surgeon, to return to the emergency department if symptoms worsen or persist or if there are any questions or concerns that arise at home. 11/25 15:44 Order name: Foot Left 3 View XRAY; Complete Time: 17:23 kb 11/25 15:47 Order name: Ice pack; Complete Time: 15:56 kb Administered Medications: 16:57 Drug: Ketorolac IM 30 mg Route: IM; Site: right deltoid; mb9 17:22 Follow up: Response: No adverse reaction mb9 Disposition: 18:20 Co-signature as Attending Physician, Ernesto Clemons MD I reviewed the patient's care rt provided by the Advanced Practice Provider and agree with the diagnosis and treatment plan. Disposition Summary: 11/25/22 17:24 Discharge Ordered Location: Home kb Condition: Stable kb Diagnosis - Contusion of left foot kb Followup: kb - With: Emergency Department - When: As needed - Reason: Worsening of condition Followup: kb - With: Private Physician - When: 2 - 3 days - Reason: Recheck today's complaints, Continuance of care, Re-evaluation by your physician Discharge Instructions: - Discharge Summary Sheet kb - Foot Contusion, [id number] kb Forms: - Medication Reconciliation Form kb - Thank You Letter kb - Antibiotic Education kb - Prescription Opioid Use kb Signatures: Dispatcher [employer] EDChristina Ledesma, LASHAY AUGUSTEP-Roxann Valle, RN RN Sharlene Colbert RN RN mb9 Ernesto Clemons MD MD rt
--- NOTE | 2022-11-25 17:25 | ER ---
Nurse's Notes [facility] Name: Marquis Nelson Age: 52 yrs Sex: Male : 1970 Arrival Date: 11/25/2022 Time: 15:36 Bed 12 Private MD: Diagnosis: Contusion of left foot Presentation: 11/25 15:48 Chief complaint: Was playing horshoes yesterday, thrown horseshoe landed in left foot, hb then stubbed left foot today, now c/o of left foot pain 01/30. Bruising noted to top of left foot. Coronavirus screen: At this time, the client does not indicate any symptoms associated with coronavirus-19. Ebola Screen: No symptoms or risks identified at this time. Initial Sepsis Screen: Does the patient meet any 2 criteria? No. Patient's initial sepsis screen is negative. Does the patient have a suspected source of infection? No. Patient's initial sepsis screen is negative. Risk Assessment: Do you want to hurt yourself or someone else? Patient reports no desire to harm self or others. Onset of symptoms was November 24, 2022. 15:48 Method Of Arrival: Wheelchair hb 15:48 Acuity: THANH 4 hb Triage Assessment: 15:58 Injury Description: Bruise sustained to left foot is purple, black, was sustained 1 day mb9 ago. Historical: - Allergies: 15:50 Beta Blockers (sensitive/hypotension); hb 15:50 Flomax; hb 15:50 Ibuprofen; hb 15:50 Neurontin; hb 15:50 Remeron; hb 15:50 Skelaxin; hb 15:50 spironolactone; hb 15:50 Stadol; hb 15:50 tramadol; hb 15:50 Trazodone; hb - PMHx: 15:50 AAA; ADD/ADHD; Anemia; Anxiety; Atrial Fib; CAD; CHF; GERD; High Cholesterol; hb Myocardial infarction; Pacemaker; Pulmonary Embolism; - Immunization history:: Adult Immunizations up to date. - Social history:: Smoking status: Patient denies any tobacco usage or history of. Screenin:55 [facility] ED Fall Risk Assessment (Adult) History of falling in the last 3 months, mb9 including since admission No falls in past 3 months (0 pts) Confusion or Disorientation No (0 pts) Intoxicated or Sedated No (0 pts) Impaired Gait Yes (1 pt) Mobility Assist Device Used Yes (1 pt) Altered Elimination No (0 pt) Score/Fall Risk Level 0 - 2 = Low Risk Oriented to surroundings, Maintained a safe environment, Educated pt \T\ family on fall prevention, incl call for assistance when getting out of bed. Abuse screen: Denies threats or abuse. Nutritional screening: No deficits noted. Tuberculosis screening: No symptoms or risk factors identified. Assessment: 15:57 General: Appears in no apparent distress. Behavior is calm, cooperative, appropriate mb9 for age. Pain: Complains of pain in left foot. Neuro: Du Agitation-Sedation Scale (RASS): 0 - Alert and Calm Level of Consciousness is awake, alert, obeys commands, Oriented to person, place, time, situation, Appropriate for age. Cardiovascular: Patient's skin is warm and dry. Respiratory: Airway is patent Respiratory effort is even, unlabored, Respiratory pattern is regular, symmetrical. Derm: Bruising that is dark purple, on left foot. Musculoskeletal: Swelling present in dorsum of left foot and left foot. 17:22 Reassessment: No changes from previously documented assessment. Patient and/or family mb9 updated on plan of care and expected duration. Pain level reassessed. Patient is alert, oriented x 3, equal unlabored respirations, skin warm/dry/pink. Vital Signs: 15:48 BP 153 / 73; Pulse 63; Resp 16; Temp 98.8; Pulse Ox 100% on R/A; Weight 128.37 kg; hb Height 5 ft. 10 in. ; Pain 8/10; 17:40 BP 148 / 74; Pulse 84; Resp 17; Pulse Ox 98% on R/A; hb 15:48 Body Mass Index 40.61 (128.37 kg, 177.8 cm) hb 15:48 Pain Scale: Adult hb ED Course: 15:40 Patient arrived in ED. im 15:40 [facility] kb 15:40 Ernesto Clemons MD is Attending Physician. kb 15:50 Triage completed. hb 15:50 Arm band placed on. hb 15:56 Bed in low position. Call light in reach. Side rails up X 1. Client placed on mb9 continuous cardiac and pulse oximetry monitoring. NIBP monitoring applied. 15:56 No provider procedures requiring assistance completed. Patient did not have IV access mb9 during this emergency room visit. 15:59 Joy Ruffin, RN is Primary Nurse. nj1 17:08 Foot Left 3 View XRAY In Process Unspecified. EDMS Administered Medications: 16:57 Drug: Ketorolac IM 30 mg Route: IM; Site: right deltoid; mb9 17:22 Follow up: Response: No adverse reaction mb9 Medication: 15:56 VIS not applicable for this client. mb9 Outcome: 17:24 Discharge ordered by . carlos alberto 17:27 Discharged to home ambulatory. mb9 17:27 Condition: stable 17:27 Discharge instructions given to patient, Instructed on discharge instructions, follow up and referral plans. Demonstrated understanding of instructions, follow-up care. 17:41 Patient left the ED. hb Signatures: Dispatcher [employer] EDMS Christina Henley, PREPPER-C PREPPER-CkRoxann Cristina RN RN Sharlene Colbert RN RN mb9 Joy Ruffin, RN RN nj1 Kacey Vega Corrections: (The following items were deleted from the chart) 15:51 15:48 Acuity: THANH 5 hb hb
== END 2022-11-25 17:41 | disposition home or self-care (01) ==
LOC: ER 15:36
DX: S90.32XA Contusion of left foot, initial encounter (principal); Z95.0 Presence of cardiac pacemaker; Z88.5 Allergy status to narcotic agent; Z88.6 Allergy status to analgesic agent; Z88.8 Allergy status to other drugs, medicaments and biological substances
CPT/HCPCS: 96372; 99284

== ENCOUNTER 2024-08-22 07:15 | Emergency (ER) | payer OTHER ==
[2024-08-22] MEDS ORDERED: LIDOCAINE 1% MPF 5 ML VIAL ONE (07:44)
[2024-08-22] MEDS ORDERED: HYDROCODONE/APAP 7.5/325 MG TAB ONE (07:44)
[2024-08-22] MEDS ORDERED: MUPIROCIN 2% OINT 22GM TUBE TOP ONE (07:44)
[2024-08-22] MEDS ORDERED: LIDOCAINE 2% W/EPI 1:200,000 MPF 20 ML VIAL IM ONE (07:49)
--- NOTE | 2024-08-22 08:40 | RAD REPORT ---
EXAMINATION: XR LEFT KNEE CLINICAL INDICATION: trauma TECHNIQUE: Multiple projections of the left knee were obtained. COMPARISON: No prior exam. FINDINGS: Prominent spur projects off the superior margin of the patella. Soft tissue bandaging is pr esent over the patellar tendon region limiting assessment. Small lucency in the tibial tubercle usually is a normal variant. No evidence of definitive fracture or dislocation.
--- NOTE | 2024-08-22 08:54 | EDPHYS ---
Physician Documentation [facility] Name: Marquis Nelson Age: 54 yrs Sex: Male : 1970 Arrival Date: 08/22/2024 Time: 07:15 Bed 17 Private MD: ED Physician Ernesto Clemons HPI: 08/22 07:43 This 54 yrs old Male presents to ER via Ambulatory with complaints of Fall Injury. rt 07:43 Patient presents to the ED with a trip and fall. Patient fell into an aquarium causing rt the glass to break. Reportedly suffered several abrasions on the both hands, a laceration to the left forearm. Reports abrasion to the knees, states that the knees took the worst of the fall having pain to his left knee. Denies head trauma. Denies other acute complaints, symptoms are moderate in severity, no other aggravating or alleviating factors.. Historical: - Allergies: 07:32 Beta Blockers (sensitive/hypotension); jl7 07:32 Flomax; jl7 07:32 Ibuprofen; jl7 07:32 Neurontin; jl7 07:32 Remeron; jl7 07:32 Skelaxin; jl7 07:32 spironolactone; jl7 07:32 Stadol; jl7 07:32 tramadol; jl7 07:32 Trazodone; jl7 - Home Meds: 07:32 Xarelto oral [Active]; jl7 - PMHx: 07:32 AAA; ADD/ADHD; Anemia; Anxiety; Atrial Fib; CAD; CHF; GERD; High Cholesterol; jl7 Myocardial infarction; Pacemaker; Pulmonary Embolism; - Immunization history:: Adult Immunizations up to date, Last tetanus immunization: up to date < 5 years ago February 2024. - Infectious Disease History:: Denies. - Social history:: Smoking status: Patient denies any tobacco usage or history of. - Family history:: not pertinent. ROS: 07:43 Constitutional: Negative for fever, chills, and weight loss, Cardiovascular: Negative rt for chest pain, palpitations, and edema, Respiratory: Negative for shortness of breath, cough, wheezing, and pleuritic chest pain, Abdomen/GI: Negative for abdominal pain, nausea, vomiting, diarrhea, and constipation, Neuro: Negative for headache, weakness, numbness, tingling, and seizure, 07:43 MS/extremity: Positive for Abrasions, laceration, pain, Exam: 07:43 Constitutional: This is a well developed, well nourished patient who is awake, alert, rt and in no acute distress. Head/Face: Normocephalic, atraumatic. Chest/axilla: Normal chest wall appearance and motion. Nontender with no deformity. No lesions are appreciated. Cardiovascular: Regular rate and rhythm with a normal S1 and S2. No gallops, murmurs, or rubs. Normal PMI, no JVD. No pulse deficits. Respiratory: Lungs have equal breath sounds bilaterally, clear to auscultation and percussion. No rales, rhonchi or wheezes noted. No increased work of breathing, no retractions or nasal flaring. Abdomen/GI: Soft, non-tender, with normal bowel sounds. No distension or tympany. No guarding or rebound. No evidence of tenderness throughout. 07:43 Musculoskeletal/extremity: Abrasions without lacerations to both knees, tenderness to the left knee, mild swelling noted, no deformities. There are scattered abrasions not amenable to primary repair on both of the hands, 2 cm laceration on the left forearm with no active bleeding. No signs of foreign body, pulses, motor, sensation intact. Vital Signs: 07:28 BP 137 / 87; Pulse 74; Resp 15; Temp 97; Pulse Ox 100% ; Weight 109.77 kg; Height 5 ft. jl7 8 in. ; 07:28 Body Mass Index 36.80 (109.77 kg, 172.72 cm) jl7 Laceration: 09:22 Wound Repair of 2cm ( 0.8in ) subcutaneous laceration to left arm. Linear shaped.. rt Distal neuro/vascular/tendon intact. Anesthesia: Local anesthetic administered with 2 mls of 1% lidocaine w/ Epi. Wound prep: Copious irrigation. Skin closed with 3 4-0 Vicryl using simple sutures and sterile technique. Dressed with non-adherent dressing. Patient tolerated well. MDM: 07:24 Medical Screening Exam initiated rt 09:22 Differential diagnosis: Laceration, abrasion, fracture. Data reviewed: vital signs, rt nurses notes, radiologic studies. I considered the following discharge prescriptions or medication management in the emergency department Medications were administered in the Emergency Department. See MAR. Independent interpretation of the following test(s) in the Emergency Department X-Ray: My interpretation is No fracture seen on my interpretation of x-ray images. Care significantly affected by the following chronic conditions: Atrial fibrillation. Counseling: I had a detailed discussion with the patient and/or guardian regarding the historical points, exam findings, and any diagnostic results supporting the discharge/admit diagnosis, radiology results, the need for outpatient follow up, to return to the emergency department if symptoms worsen or persist or if there are any questions or concerns that arise at home. Response to treatment: the patient's symptoms have markedly improved after treatment. 08/22 07:33 Order name: Knee Left 3 View XRAY; Complete Time: 08:44 rt 08/22 07:33 Order name: Dressing - Wound; Complete Time: 07:34 rt 08/22 07:33 Order name: Gloves, Sterile; Complete Time: 07:34 rt 08/22 07:33 Order name: Setup Suture Tray; Complete Time: 07:34 rt Administered Medications: 07:46 Drug: Mupirocin Topical Ointment 2 % 1 application Topical once Route: Topical; Site: bp affected area; 07:46 Drug: Hydrocodone-Acetaminophen PO (7.5 mg-325 mg) 1 tabs PO once Route: PO; bp 09:06 Follow up: Response: No adverse reaction bp 07:47 Drug: Lidocaine-Epinephrine Infiltration -1%: (1:100,000) 20 ml 20 ml Infiltration bp once; to bedside Volume: 20 ml; Route: Infiltration; Disposition Summary: 08/22/24 08:54 Discharge Ordered Notes: Location: Home rt Problem: new rt Symptoms: have improved rt Condition: Stable rt Diagnosis - Mechanical fall rt - Abrasions of bilateral hands rt - Abrasion of bilateral knee rt - Contusion of left knee rt - Laceration of left forearm rt Followup: rt - With: Private Physician - When: 10 - 14 days - Reason: Discharge Instructions: - Discharge Summary Sheet rt - Abrasion rt - Contusion rt - Laceration Care, Adult rt Forms: - Medication Reconciliation Form rt - Antibiotic Education rt - Prescription Opioid Use rt - Patient Portal Instructions rt - Leadership Thank You Letter rt Prescriptions: - mupirocin 2 % Topical ointment - apply 1 application TOPICAL route 3 times per day; 1 Each; Refills: 0, Product rt Selection Permitted Signatures: Dispatcher [employer] Dianne Herrmann, RN RN jl7 Russ Momin, RN RN bp Ernesto Clemons MD MD rt
--- NOTE | 2024-08-22 08:54 | ER ---
Nurse's Notes [facility] Name: Marquis Nelson Age: 54 yrs Sex: Male : 1970 Arrival Date: 08/22/2024 Time: 07:15 Bed 17 Private MD: Diagnosis: Mechanical fall;Abrasions of bilateral hands;Abrasion of bilateral knee;Contusion of left knee;Laceration of left forearm Presentation: 08/22 07:28 Chief complaint: Patient states: Tripped and fell, hands out into fish tank and landed jl7 on concrete. Multiple superficial abrasions and one laceration to left forerm. Coronavirus screen: At this time, the client does not indicate any symptoms associated with coronavirus-19. Ebola Screen: No symptoms or risks identified at this time. Initial Sepsis Screen: Does the patient meet any 2 criteria? No. Patient's initial sepsis screen is negative. Does the patient have a suspected source of infection? No. Patient's initial sepsis screen is negative. Risk Assessment: Do you want to hurt yourself or someone else? Patient reports no desire to harm self or others. Onset of symptoms was August 22, 2024. 07:28 Method Of Arrival: Ambulatory jl7 07:28 Acuity: THANH 4 jl7 Triage Assessment: 07:32 General: Appears in no apparent distress. uncomfortable, Behavior is calm, cooperative, jl7 appropriate for age. Pain: Complains of pain in left arm and left leg. Historical: - Allergies: 07:32 Beta Blockers (sensitive/hypotension); jl7 07:32 Flomax; jl7 07:32 Ibuprofen; jl7 07:32 Neurontin; jl7 07:32 Remeron; jl7 07:32 Skelaxin; jl7 07:32 spironolactone; jl7 07:32 Stadol; jl7 07:32 tramadol; jl7 07:32 Trazodone; jl7 - Home Meds: 07:32 Xarelto oral [Active]; jl7 - PMHx: 07:32 AAA; ADD/ADHD; Anemia; Anxiety; Atrial Fib; CAD; CHF; GERD; High Cholesterol; jl7 Myocardial infarction; Pacemaker; Pulmonary Embolism; - Immunization history:: Adult Immunizations up to date, Last tetanus immunization: up to date < 5 years ago February 2024. - Infectious Disease History:: Denies. - Social history:: Smoking status: Patient denies any tobacco usage or history of. - Family history:: not pertinent. Screenin:50 [facility] ED Fall Risk Assessment (Adult) History of falling in the last 3 months, bp including since admission Yes- single mechanical fall (1 pt) Confusion or Disorientation No (0 pts) Intoxicated or Sedated No (0 pts) Impaired Gait No (0 pts) Mobility Assist Device Used No (0 pt) Altered Elimination No (0 pt) Score/Fall Risk Level 0 - 2 = Low Risk Oriented to surroundings. Abuse screen: Denies threats or abuse. Denies injuries from another. Nutritional screening: No deficits noted. Tuberculosis screening: No symptoms or risk factors identified. Assessment: 07:35 General: Appears in no apparent distress. uncomfortable, Behavior is calm, cooperative, bp appropriate for age. 08:50 Reassessment: Patient appears in no apparent distress at this time. Patient is alert, bp oriented x 3, equal unlabored respirations, skin warm/dry/pink. Vital Signs: 07:28 BP 137 / 87; Pulse 74; Resp 15; Temp 97; Pulse Ox 100% ; Weight 109.77 kg; Height 5 ft. jl7 8 in. ; 07:28 Body Mass Index 36.80 (109.77 kg, 172.72 cm) jl7 ED Course: 07:16 Patient arrived in ED. am2 07:21 Ernesto Clemons MD is Attending Physician. rt 07:32 Triage completed. jl7 07:32 Arm band placed on right wrist. jl7 07:34 Russ Momin, RN is Primary Nurse. bp 07:45 Knee Left 3 View XRAY In Process Unspecified. EDMS 08:35 Assist provider with laceration repair on left arm that was 2.5 cm. or less using bp sutures. Set up tray. Performed by Ernesto Clemons MD Dressed with Reyes, Patient tolerated well. 08:50 Patient has correct armband on for positive identification. Bed in low position. bp Administered Medications: 07:46 Drug: Mupirocin Topical Ointment 2 % 1 application Topical once Route: Topical; Site: bp affected area; 07:46 Drug: Hydrocodone-Acetaminophen PO (7.5 mg-325 mg) 1 tabs PO once Route: PO; bp 09:06 Follow up: Response: No adverse reaction bp 07:47 Drug: Lidocaine-Epinephrine Infiltration -1%: (1:100,000) 20 ml 20 ml Infiltration bp once; to bedside Volume: 20 ml; Route: Infiltration; Medication: 08:50 VIS not applicable for this client. bp Outcome: 08:54 Discharge ordered by . rt 09:06 Patient left the ED. bp Signatures: Dispatcher [employer] EDDianne Navarro RN RN jl7 Imani De La Cruz Brian, RN RN bp [place], Ryan, MD MD rt
[2024-08-22 09:11] VITALS: BP 137/87; TEMP 97; O2SAT 100
== END 2024-08-22 09:06 | disposition home or self-care (01) ==
LOC: ER 07:15
DX: S51.812A Laceration without foreign body of left forearm, initial encounter (principal); S60.512A Abrasion of left hand, initial encounter; S60.511A Abrasion of right hand, initial encounter; S80.212A Abrasion, left knee, initial encounter; S80.211A Abrasion, right knee, initial encounter; S80.02XA Contusion of left knee, initial encounter; W01.198A Fall on same level from slipping, tripping and stumbling with subsequent striking against other object, initial encounter; Z95.0 Presence of cardiac pacemaker
CPT/HCPCS: 12001; 99283; J2003